=== PATIENT | female | born 1945 | race Caucasian/White ===

== ENCOUNTER → 2016-10-08 | Outpatient (CLI) | payer OTHER ==
[~2016-10-08] MED LIST: ACET-1256 PO; ALBUAER2 INH; ANT25 PO; ATEN-174 PO; ATOR-22 PO; BIOT1TAB5 PO; CAMPLOT10 TOP; CEPH500C PO; CHOL1CAP57 PO; CLC100 PO; DICY20TA10 PO; DOXY100C76 PO; HYDR-3124 PO; HYDR25TA5 PO; IPRASOL4 INH; LSX20 PO; MRLP17 PO; NRN100 PO; ONDA4TAB10 SL; OXYC-57 PO; PLMINS NEB; POTA-331 PO; POTA10TA32 PO; PRED10TA PO; PRLSR20 PO; TRMO2580 TOP; TUMS PO; VNTHFA/IN INH
--- NOTE | 2016-10-08 12:36 | MAMMOGRAPHY REPORT ---
BILATERAL DIGITAL SCREENING MAMMOGRAM WITH CAD: 10/08/2016 CLINICAL HISTORY: Routine screening. Patient has no complaints. TECHNIQUE: Bilateral CC, MLO and repeat left MLO views were obtained. Current study was also evalu ated with a Computer Aided Detection (CAD) system. COMPARISON: Comparison is made to exams dated: 10/06/2015 mammogram - [facility], 04/17/2013 mammogram, and 04/16/2012 mammogram - [facility]. BREAST COMPOSITION: There are scattered areas of fibroglandular density in both breasts. FINDINGS: There are benign calcifications and stable benign-appearing punctate microcalcifications b ilaterally. A stable coiled metallic biopsy marker in the 11:30 to 12:00 anterior right breast. No new suspicious mass, architectural distortion or cluster of microcalcifications is seen. IMPRESSION: ACR BI-RADS CATEGORY 1: NEGATIVE There is no mammographic evidence of malignancy. A 1 year screening mammogram is recommended. The p atient will receive written notification of the results. Approximately 10% of breast cancers are not detected with mammography. A negative mammographic repor t should not delay biopsy if a clinically suggestive mass is present. Swati Manzo M.D. ay/:10/08/2016 10:56:52 Fuel Handler: Krystal ROCHE(Hernandez)(Mara)([place]), [facility] letter sent: Normal 1/2 BI-RADS Code: ACR BI-RADS Category 1: Negative
== END | disposition home or self-care (01) ==
LOC: C.MAMM 10:20
PROVIDERS: ATTEND Internal Medicine
DX: Z12.31 Encounter for screening mammogram for malignant neoplasm of breast (principal)

== ENCOUNTER → 2016-12-07 | Outpatient (CLI) | payer OTHER ==
[~2016-12-07] MED LIST changes: -ANT25 PO; -ONDA4TAB10 SL; -PLMINS NEB
--- NOTE | 2016-12-07 11:31 | DIAGNOSTIC IMAGING REPORT ---
SMALL BOWEL FOLLOW-THROUGH CLINICAL HISTORY: Nausea. Constipation. Bloating. COMPARISON STUDY: Abdominal CT dated 02/10/2015. TECHNIQUE: An abdominal hand roller engraver radiograph was performed. The patient consumed several of thin barium and a small follow-through was performed. Overhead radiographs and spot compression images were obtained. FINDINGS: The abdominal hand roller engraver radiograph shows a nonobstructed abdominal bowel gas pattern. Cholecystectomy clips are noted. There is mild to moderate colonic fecal retention. Numerous phleboliths are seen in the pelvis. The skeletal structures are osteopenic. Mild lumbosacral spondylosis is observed. The stomach and duodenum appear normal in configuration. On the small bowel follow-through, there is normal transit time with contrast identified in the colon at 20 minutes. The small bowel mucosal pattern is normal. There is no evidence of stricture or mass. The distal/terminal ileum are normal in appearance on the spot compression views. Fluoroscopy time: 0.6 minutes. Fluoroscopic images: 7 IMPRESSION: Normal small bowel follow-through. Electronically signed by: Jose D Cruz M.D. 12/07/2016 11:30 AM Dictated Date/Time: 12/07/2016 11:27 AM
== END | disposition home or self-care (01) ==
LOC: C.RAD 08:41
PROVIDERS: ATTEND Nurse Practitioner Family
DX: R14.0 Abdominal distension (gaseous) (principal)

== ENCOUNTER 2017-02-09 08:06 | Observation (INO) | payer OTHER ==
[~2017-02-09] VITALS: Ht 157.5 cm; Wt 108.0 kg
[~2017-02-09 08:06] MED LIST changes: -ACET-1256 PO; -ATEN-174 PO; -ATOR-22 PO; -BIOT1TAB5 PO; -CAMPLOT10 TOP; -CEPH500C PO; -CHOL1CAP57 PO; -CLC100 PO; -DICY20TA10 PO; -DOXY100C76 PO; -HYDR-3124 PO; -HYDR25TA5 PO; -IPRASOL4 INH; -LSX20 PO; -MRLP17 PO; -NRN100 PO; -OXYC-57 PO; -POTA10TA32 PO; -PRED10TA PO; -TRMO2580 TOP; -TUMS PO; -VNTHFA/IN INH
--- NOTE | 2017-02-09 08:43 | EMERGENCY ROOM VISIT NOTE ---
History Report prepared by Latrice: Hesham Cantrell Under the Supervision of: Dr. Chula Desai M.D. First contact with patient: 08:11 Chief Complaint: LEG PAIN,LEG INJURY Stated Complaint: LEG PAIN History of Present Illness The patient is a 71 year old female who presents to the Emergency Room via EMS with complaints of right leg pain that began 2 months ago. She rates her current pain a 7/10 in severity. This morning, she was stepping up to her bed when she felt something "tear" behind her knee. She was given 2 doses of Morphine 4 mg IV en route. 1 month ago, she reports that she twisted her knee as well. She saw her PCP recently, and they told her that she had a varicose vein in her leg that was causing her pain. Today, her pain has worsened to where the patient cannot walk or bear any weight. She states that her pain is behind the knee, down her calf, and into her groin. Her right leg has been swelling as well. She has a past medical history of arthritis in her lower back , COPD, hypertension, and hyperlipidemia. She denies any history of diabetes. Source of History: patient Onset: 2 months ago Position: leg (right), knee (right) Symptom Intensity: 7/10 Quality: ache Timing: constant Modifying Factors (Worsening): exertion, movement Note: Her pain is radiating to her groin area as well. Review of Systems See HPI for pertinent positives & negatives. A total of 10 systems reviewed and were otherwise negative. Past Medical & Surgical Medical Problems: (1) Acute pain of right lower extremity (2) CKD (chronic kidney disease) stage 3, GFR 30-59 ml/min (3) COPD, severe (4) Dyslipidemia (5) GERD (gastroesophageal reflux disease) (6) Hypertension (7) IBS (irritable bowel syndrome) Surgical Problems: (1) H/O esophagogastroduodenoscopy (2) History of bilateral breast reduction surgery (3) History of tonsillectomy and adenoidectomy (4) History of total hysterectomy (5) History of ureter stent Family History Diabetes mellitus FH: lung disease FHx: heart disease Hypertension Social History Smoking Status: Former Smoker Alcohol Use: none Marital Status: Housing Status: lives with family Occupation Status: retired Current/Historical Medications Scheduled Albuterol Hfa (Ventolin Hfa), 2-4 PUFFS INH Q4 Atenolol (Tenormin), 50 MG PO DAILY Atorvastatin (Lipitor), 20 MG PO DAILY Biotin (Biotin), 1,000 MCG PO TID Cholecalciferol (Vitamin D3), 1 CAP PO DAILY Hydrochlorothiazide (Hydrochlorothiazide), 1 TAB PO DAILY Potassium Chloride Microencaps (Potassium Chloride Er), 10 MEQ PO DAILY Scheduled PRN Acetaminophen (Tylenol), 500 MG PO UD PRN for h Dicyclomine Hcl (Dicyclomine Hcl), 20 MG PO BID PRN for abd pain Ipratropium-Albuterol (Duoneb), 1 VIAL INH QID PRN for SOB/Wheezing Allergies Coded Allergies: Adhesives (Verified Allergy, Intermediate, RASH, 02/09/17) Ibuprofen (Verified Allergy, Intermediate, RASH, 02/09/17) Latex (Verified Allergy, Intermediate, RASH, 02/09/17) Naproxen (Verified Allergy, Intermediate, SWELLING, RASH, HIVES, 02/09/17) Iodinated Diagnostic Agents (Verified Allergy, Unknown, ., 02/09/17) Physical Exam Vital Signs Date Time Temp Pulse Resp B/P Pulse Ox O2 Delivery O2 Flow Rate FiO2 02/09/17 14:15 81 19 97 02/09/17 14:00 80 17 133/90 94 02/09/17 13:45 85 22 95 02/09/17 13:43 146/83 02/09/17 13:37 178/98 02/09/17 13:22 87 02/09/17 13:15 87 95 02/09/17 13:00 85 125/69 93 02/09/17 12:45 81 94 02/09/17 12:30 81 93 02/09/17 12:20 141/91 02/09/17 12:19 84 18 141/91 93 Room Air 2.0 02/09/17 11:01 /134 02/09/17 11:00 60 91 02/09/17 09:34 58 20 138/93 96 Nasal Cannula 2.0 02/09/17 08:27 96 Nasal Cannula 2.0 02/09/17 08:26 90 Room Air 02/09/17 08:19 37.1 73 20 148/87 90 Room Air 02/09/17 08:18 64 Physical Exam Vital signs reviewed. General: Well-appearing, obese, elderly, deconditioned, in no significant distress. HEENT: No scleral icterus, PERRLA, neck supple. Atraumatic. Cardiovascular: Regular rate and rhythm, no extra sounds. Pulmonary: Clear to auscultation bilaterally, normal work of breathing. Abdomen: Soft, nontender, nondistended, positive bowel sounds. Musculoskeletal: Pain to palpation to the posterior right knee, pain with extension and flexion, pain with straight leg raise, no significant abnormality seen on exam, no peripheral edema. Neurologic: Patient awake alert and oriented x 3, full strength in all 4 extremities. Cranial nerves 2 through 12 grossly intact. Skin: Warm, dry, no rash Medical Decision & Procedures ER Provider Diagnostic Interpretation: Radiology results as stated below per my review and radiologist interpretation: LUMBAR SPINE 5 VIEWS HISTORY: Pain. Neuropathy. RLE PAIN COMPARISON: None. FINDINGS: There is no fracture. No subluxation. Moderate degenerative disc changes throughout. No evidence for compression deformity. IMPRESSION: Moderate degenerative change. No acute process. Electronically signed by: Corey Landaverde M.D. 02/09/2017 9:21 AM Dictated Date/Time: 02/09/2017 9:20 AM Venous Doppler right leg VENOUS DOPP LOWER EXT UNILAT CLINICAL HISTORY: RLE PAIN, dv pain. Edema. TECHNIQUE: Venous Doppler COMPARISON STUDY: None FINDINGS: Normal study IMPRESSION: Normal study Electronically signed by: Corey Landaverde M.D. 02/09/2017 9:18 AM Dictated Date/Time: 02/09/2017 9:18 AM LUMBAR SPINE MRI HISTORY: Pain. Radiculopathy. R leg radiculopathy unable to bear weight TECHNIQUE: Multiplanar multisequence MRI of the lumbar spine was performed without the use of contrast. COMPARISON: None. FINDINGS: For the purpose of the report the L5-S1 disc space will be located on axial image 27 of 30. Mild degenerative disc change. Normal stature of the vertebral bodies. L1-L2: Minimal broad-based disc bulge. No significant impact with thecal sac. L2-L3: Minimal broad-based disc bulge. Minimal impact with thecal sac. L3-L4: Mild multifactorial narrowing of the spinal canal. Broad-based bulging disc L3-L4. Neural foramina patent bilaterally. L4-L5: Mild multifactorial narrowing of the spinal canal. Neural foramina patent bilaterally. L5-S1: No significant central canal or neural foraminal narrowing. IMPRESSION: 1. Moderate degenerative disc change throughout the entire lumbar region. 2. Mild multifactorial narrowing of the spinal canal at L3-L4 and L4-L5. 3. No major compromise of the spinal canal or neural foramina Electronically signed by: Corey Landaevrde M.D. 02/09/2017 12:25 PM Dictated Date/Time: 02/09/2017 12:23 PM Laboratory Results Test 02/09/17 08:18 02/09/17 08:32 Immature Granulocyte % (Auto) 0.4 % White Blood Count 7.42 K/uL (4.8-10.8) Red Blood Count 5.18 M/uL (4.2-5.4) Hemoglobin 15.8 g/dL (12.0-16.0) Hematocrit 50.3 % (37-47) Mean Corpuscular Volume 97.1 fL (80-100) Mean Corpuscular Hemoglobin 30.5 pg (25-34) Mean Corpuscular Hemoglobin Concent 31.4 g/dl (32-36) Platelet Count 205 K/uL (130-400) Mean Platelet Volume 10.0 fL (7.4-10.4) Neutrophils (%) (Auto) 62.3 % Lymphocytes (%) (Auto) 23.3 % Monocytes (%) (Auto) 12.0 % Eosinophils (%) (Auto) 1.3 % Basophils (%) (Auto) 0.7 % Neutrophils # (Auto) 4.62 K/uL (1.4-6.5) Lymphocytes # (Auto) 1.73 K/uL (1.2-3.4) Monocytes # (Auto) 0.89 K/uL (0.11-0.59) Eosinophils # (Auto) 0.10 K/uL (0-0.5) Basophils # (Auto) 0.05 K/uL (0-0.2) Immature Granulocyte # (Auto) 0.03 K/uL (0.00-0.02) Prothrombin Time 10.7 SECONDS (9.0-12.0) Prothromb Time International Ratio 1.0 (0.9-1.1) Activated Partial Thromboplast Time 27.6 SECONDS (21.0-31.0) Partial Thromboplastin Ratio 1.1 Total Bilirubin 0.7 mg/dl (0.2-1) Direct Bilirubin 0.1 mg/dl (0-0.2) Aspartate Amino Transf (AST/SGOT) 15 U/L (15-37) Alanine Aminotransferase (ALT/SGPT) 23 U/L (12-78) Alkaline Phosphatase 85 U/L (45-117) Total Protein 7.3 gm/dl (6.4-8.2) Albumin 3.8 gm/dl (3.4-5.0) Bedside Troponin I 0.000 ng/ml (0-0.045) JB-Fti-L-Type Natriuretic Peptide 119 pg/ml (0-900) Laboratory results per my review. Medications Administered Medications (Trade) Dose Ordered Sig/Carlos Route Start Time Stop Time Status Last Admin Dose Admin Lorazepam 2 mg 2 mg NOW STAT SL 02/09/17 10:45 02/09/17 10:47 DC 02/09/17 11:19 2 MG Promethazine HCl/ Sodium Chloride (Phenergan Inj/ Nss 50ml) 50.5 ml @ 204 mls/hr NOW STAT IV 02/09/17 12:15 02/09/17 12:29 DC 02/09/17 12:15 204 MLS/HR ECG Indication: other (leg pain) Rate (beats per minute): 61 Rhythm: normal sinus Findings: no acute ischemic change, no ectopy ED Course 0811: Past medical records reviewed. The patient was evaluated in room A10. A complete history and physical examination was performed. 0845: The patient made the decision to try an MRI procedure if needed as long as her head is uncovered. 0929: I was informed the patient would like medication for her nausea symptoms. 1045: Ativan Tab 2 mg SL 1215: Ordered Promethazine HCl 50.5 ml @ 204 mls/hr IV 1350: Upon reevaluation, the patient is resting comfortably. I discussed laboratory and radiographic results with her. She verbalized agreement of the treatment plan. I spoke with Dr. Ervin of the [facility]. The patient will be evaluated for further management and care. Medical Decision Differential diagnoses include DVT, sciatica, disc herniation, compression fracture, and muscular strain. This patient was evaluated and appeared to be in no significant distress. IV access was obtained and laboratory work was drawn. Patient was placed on the business services representative. She was medicated in route with IV morphine. Patient was given IV Phenergan for her nausea. Lumbar spine x-rays were obtained and reveal no fracture or dislocation. Ultrasound of the right lower extremity reveals no evidence of DVT. MRI of the lumbar spine was ordered and reveals some degenerative changes. Ambulatory child was performed and the patient requires significant assistance and a walker. Family does not feel comfortable taking the patient home. The patient will be evaluated by the hospitalist service for further management with hopes of further evaluation and potential PTOT therapy. Consults Time Called: 1345 Consulting Physician: Dr. Arcadio Munoz Hospitalist Returned Call: [phone] They will be evaluating the patient for further management. Impression Primary Impression: Right lumbar radiculopathy Scribe Attestation The scribe's documentation has been prepared under my direction and personally reviewed by me in its entirety. I confirm that the note above accurately reflects all work, treatment, procedures, and medical decision making performed by me. Departure Information Dispostion Being Evaluated By Hospitalist Referrals Amarilys Viveros M.D. (PCP) Patient Instructions My [facility]
[2017-02-09 08:45] LABS: BASO % 0.7 %; BASO ABS # 0.05 K/uL (0-0.2); COMPLETE YES; EOS % 1.3 %; HEMATOCRIT 50.3 % (37-47); IG% 0.4 %; LYMPH % 23.3 %; LYMPH ABS # 1.73 K/uL (1.2-3.4); MEAN CELL VOLUME 97.1 fL (80-100); MEAN CORPUSCULAR HEMOGLOBIN 30.5 pg (25-34); MEAN CORPUSCULAR HGB CONC 31.4 g/dl (32-36); NEUT % 62.3 %; PLATELET COUNT 205 K/uL (130-400); RED BLOOD COUNT 5.18 M/uL (4.2-5.4); WHITE BLOOD COUNT 7.42 K/uL (4.8-10.8)
[2017-02-09 08:53] LABS: PARTIAL THROMBOPLASTIN RATIO 1.1; PROTHROMBIN TIME (PATIENT) 10.7 SECONDS (9.0-12.0)
[2017-02-09 09:03] LABS: BUN/CREATININE RATIO 25.6 (10-20); CREATININE 0.91 mg/dl (0.60-1.20); POTASSIUM 3.6 mmol/L (3.5-5.1)
[2017-02-09 09:17] LABS: CALCIUM 9.6 mg/dl (8.5-10.1)
--- NOTE | 2017-02-09 09:20 | DIAGNOSTIC IMAGING REPORT ---
Venous Doppler right leg VENOUS DOPP LOWER EXT UNILAT CLINICAL HISTORY: RLE PAIN, dv pain. Edema. TECHNIQUE: Venous Doppler COMPARISON STUDY: None FINDINGS: Normal study IMPRESSION: Normal study Electronically signed by: Corey Landaverde M.D. 02/09/2017 9:18 AM Dictated Date/Time: 02/09/2017 9:18 AM
--- NOTE | 2017-02-09 09:22 | DIAGNOSTIC IMAGING REPORT ---
LUMBAR SPINE 5 VIEWS HISTORY: Pain. Neuropathy. RLE PAIN COMPARISON: None. FINDINGS: There is no fracture. No subluxation. Moderate degenerative disc changes throughout. No evidence for compression deformity. IMPRESSION: Moderate degenerative change. No acute process. Electronically signed by: Corey Landaverde M.D. 02/09/2017 9:21 AM Dictated Date/Time: 02/09/2017 9:20 AM
[2017-02-09] MEDS ORDERED: LORAZEPAM 1 MG TAB SL STA (10:45)
[2017-02-09] MEDS ORDERED: PROMETHAZINE HCL INJ 12.5 MG in SODIUM CHLORIDE 0.9% 50ML 50 ML IV STA (12:15)
--- NOTE | 2017-02-09 12:27 | DIAGNOSTIC IMAGING REPORT ---
LUMBAR SPINE MRI HISTORY: Pain. Radiculopathy. R leg radiculopathy unable to bear weight TECHNIQUE: Multiplanar multisequence MRI of the lumbar spine was performed without the use of contrast. COMPARISON: None. FINDINGS: For the purpose of the report the L5-S1 disc space will be located on axial image 27 of 30. Mild degenerative disc change. Normal stature of the vertebral bodies. L1-L2: Minimal broad-based disc bulge. No significant impact with thecal sac. L2-L3: Minimal broad-based disc bulge. Minimal impact with thecal sac. L3-L4: Mild multifactorial narrowing of the spinal canal. Broad-based bulging disc L3-L4. Neural foramina patent bilaterally. L4-L5: Mild multifactorial narrowing of the spinal canal. Neural foramina patent bilaterally. L5-S1: No significant central canal or neural foraminal narrowing. IMPRESSION: 1. Moderate degenerative disc change throughout the entire lumbar region. 2. Mild multifactorial narrowing of the spinal canal at L3-L4 and L4-L5. 3. No major compromise of the spinal canal or neural foramina Electronically signed by: Corey Landaverde M.D. 02/09/2017 12:25 PM Dictated Date/Time: 02/09/2017 12:23 PM
[2017-02-09] MEDS ORDERED: BIOT1TAB5 PO (14:25)
[2017-02-09 14:26] VITALS: O2SAT 93; Ht 157.5 cm; Wt 108.0 kg
[2017-02-09] MEDS ORDERED: MoRPHine SULFATE 2 MG/ML CARP IV PRN (14:30)
[2017-02-09] MEDS ORDERED: ONDANSETRON INJ 2 MG/ML 2 ML VIAL IV PRN (14:30)
[2017-02-09] MEDS ORDERED: ALBUT/IPRATROP 3MG/0.5MG NEB 3 ML VIAL INH PRN (14:30)
[2017-02-09] MEDS ORDERED: DICYCLOMINE HCL 20 MG TAB PO PRN (14:30)
--- NOTE | 2017-02-09 15:06 | History and Physical ---
History & Physical Date & Time of Service: February 09, 2017 at 14:33 Chief Complaint: Leg Pain Primary Care Physician: Amarilys Viveros M.D. History of Present Illness Source: patient This is a 71 y/o female with PMHx of CKD stage 3, Severe COPD, HTN, Dyslipidemia and other problems as outlined below who presents to the ED c/o RLE pain x 3 months. Pt reports that 3 months ago she developed pain to her RLE with ambulation. About 1 month ago patient tripped and almost fell however she caught herself with her R leg in a twisting motion. Since that time, the pain in her R knee got much worse and her R knee frequently feels like it "gives out ". She states she has 10/10 pain in her knee that radiates to the ankle and up into groin. The pain is worse with weight bearing and better with rest. She denies back pain, significant swelling or bruising. She has been taking Tylenol to alleviate her pain with no relief. For the past 2 days patient has been using a walker to assist with ambulation and this morning patient was unable to walk at all due to excruciating pain. Pt denies fever/chills, diaphoresis, chest pain, palpitations, SOB, wheezing, abd pain, vomiting, bowel or bladder issues, lightheadedness/dizziness. In the ED, vitals are stable. Labs reviewed are WNL. Lumbar Spine MRI + mod degenerative changes. LE US neg for DVT. Pt is stable and will be admitted for further evaluation and treatment. Past Medical/Surgical History Medical Problems: (1) CKD (chronic kidney disease) stage 3, GFR 30-59 ml/min Status: Chronic (2) COPD, severe Status: Chronic (3) Dyslipidemia Status: Chronic (4) GERD (gastroesophageal reflux disease) Status: Chronic (5) Hypertension Status: Chronic (6) IBS (irritable bowel syndrome) Status: Chronic Surgical Problems: (1) H/O esophagogastroduodenoscopy Permanent Comment: repair zenkers diverticulum Status: Resolved (2) History of bilateral breast reduction surgery Status: Resolved (3) History of tonsillectomy and adenoidectomy Status: Resolved (4) History of total hysterectomy Status: Resolved (5) History of ureter stent Status: Resolved Family History Diabetes mellitus FH: lung disease FHx: heart disease Hypertension Social History Smoking Status: Former Smoker (70 pack year history (2 ppd x 35years); quit 1995) Alcohol Use: none Drug Use: none Marital Status: Housing status: lives with significant other Occupational Status: retired Immunizations History of Tetanus Vaccine?: No History of Pneumococcal: No History of Hepatitis B Vaccine: No Multi-Drug Resistant Organisms History of MDRO: No Allergies Coded Allergies: Adhesives (Verified Allergy, Intermediate, RASH, 02/09/17) Ibuprofen (Verified Allergy, Intermediate, RASH, 02/09/17) Latex (Verified Allergy, Intermediate, RASH, 02/09/17) Naproxen (Verified Allergy, Intermediate, SWELLING, RASH, HIVES, 02/09/17) Iodinated Diagnostic Agents (Verified Allergy, Unknown, ., 02/09/17) Home Medications Scheduled Albuterol Hfa (Ventolin Hfa), 2-4 PUFFS INH Q4 Atenolol (Tenormin), 50 MG PO DAILY Atorvastatin (Lipitor), 20 MG PO DAILY Biotin (Biotin), 1,000 MCG PO TID Cholecalciferol (Vitamin D3), 1 CAP PO DAILY Hydrochlorothiazide (Hydrochlorothiazide), 1 TAB PO DAILY Potassium Chloride Microencaps (Potassium Chloride Er), 10 MEQ PO DAILY Scheduled PRN Acetaminophen (Tylenol), 500 MG PO UD PRN for h Dicyclomine Hcl (Dicyclomine Hcl), 20 MG PO BID PRN for abd pain Ipratropium-Albuterol (Duoneb), 1 VIAL INH QID PRN for SOB/Wheezing Review of Systems Constitutional: No chills, No fatigue, No fever, No sweats, No weakness Eyes: No worsening of vision Respiratory: No cough, No shortness of breath Cardiovascular: No chest pain, No edema, No palpitations Abdomen: + nausea, No constipation, No diarrhea, No pain, No vomiting Musculoskeletal: + joint pain (R knee pain radiating to ankle and into groin), No calf pain Genitourinary - Female: No dysuria Neurologic: No weakness Psychiatric: No depression symptoms Endocrine: No fatigue Hematologic / Lymphatic: No abnormal bleeding/bruising Integumentary: No new/changing skin lesions Physical Exam Vital Signs Date Time Temp Pulse Resp B/P Pulse Ox O2 Delivery O2 Flow Rate FiO2 02/09/17 13:22 87 02/09/17 12:19 84 18 141/91 93 Room Air 2.0 02/09/17 09:34 58 20 138/93 96 Nasal Cannula 2.0 02/09/17 08:27 96 Nasal Cannula 2.0 02/09/17 08:26 90 Room Air 02/09/17 08:19 37.1 73 20 148/87 90 Room Air 02/09/17 08:18 64 General Appearance: WD/WN, no apparent distress, + obese, + pertinent finding ( Pt is laying in bed with and daughter at bedside) Head: normocephalic, atraumatic Eyes: normal inspection ENT: hearing grossly normal Neck: supple Respiratory/Chest: chest non-tender, lungs clear, normal breath sounds, no respiratory distress Cardiovascular: regular rate, rhythm, no murmur Abdomen/GI: normal bowel sounds, non tender, soft Back: normal inspection, + pertinent finding (no spinal or paraspinal tenderness) Extremities/Musculoskelatal: normal inspection, no calf tenderness, no pedal edema, + pertinent finding (tenderness to palpation of R knee; no significant swelling or ecchymosis noted) Neurologic/Psych: alert, normal mood/affect, oriented x 3 Skin: normal color, warm/dry Diagnostics Laboratory Results Results Past 24 Hours Test 02/09/17 08:18 02/09/17 08:32 Range/Units White Blood Count 7.42 4.8-10.8 K/uL Red Blood Count 5.18 4.2-5.4 M/uL Hemoglobin 15.8 12.0-16.0 g/dL Hematocrit 50.3 37-47 % Mean Corpuscular Volume 97.1 80-100 fL Mean Corpuscular Hemoglobin 30.5 25-34 pg Mean Corpuscular Hemoglobin Concent 31.4 32-36 g/dl Platelet Count 205 130-400 K/uL Mean Platelet Volume 10.0 7.4-10.4 fL Neutrophils (%) (Auto) 62.3 % Lymphocytes (%) (Auto) 23.3 % Monocytes (%) (Auto) 12.0 % Eosinophils (%) (Auto) 1.3 % Basophils (%) (Auto) 0.7 % Neutrophils # (Auto) 4.62 1.4-6.5 K/uL Lymphocytes # (Auto) 1.73 1.2-3.4 K/uL Monocytes # (Auto) 0.89 0.11-0.59 K/uL Eosinophils # (Auto) 0.10 0-0.5 K/uL Basophils # (Auto) 0.05 0-0.2 K/uL RDW Standard Deviation 49.9 36.4-46.3 fL RDW Coefficient of Variation 14.1 11.5-14.5 % Immature Granulocyte % (Auto) 0.4 % Immature Granulocyte # (Auto) 0.03 0.00-0.02 K/uL Prothrombin Time 10.7 9.0-12.0 SECONDS Prothromb Time International Ratio 1.0 0.9-1.1 Activated Partial Thromboplast Time 27.6 21.0-31.0 SECONDS Partial Thromboplastin Ratio 1.1 Sodium Level 141 136-145 mmol/L Potassium Level 3.6 3.5-5.1 mmol/L Chloride Level 102 98-107 mmol/L Carbon Dioxide Level 30 21-32 mmol/L Anion Gap 9.0 3-11 mmol/L Blood Urea Nitrogen 23 7-18 mg/dl Creatinine 0.91 0.60-1.20 mg/dl Est Creatinine Clear Calc Drug Dose 63.7 ml/min Estimated GFR () 72.5 Estimated GFR (Non- 62.6 BUN/Creatinine Ratio 25.6 10-20 Random Glucose 99 70-99 mg/dl Calcium Level 9.6 8.5-10.1 mg/dl Total Bilirubin 0.7 0.2-1 mg/dl Direct Bilirubin 0.1 0-0.2 mg/dl Aspartate Amino Transf (AST/SGOT) 15 15-37 U/L Alanine Aminotransferase (ALT/SGPT) 23 12-78 U/L Alkaline Phosphatase 85 45-117 U/L Total Protein 7.3 6.4-8.2 gm/dl Albumin 3.8 3.4-5.0 gm/dl Bedside Troponin I 0.000 0-0.045 ng/ml VR-[id number]-[id number]-Type Natriuretic Peptide 119 0-900 pg/ml Diagnostic Radiology LUMBAR SPINE MRI IMPRESSION: 1. Moderate degenerative disc change throughout the entire lumbar region. 2. Mild multifactorial narrowing of the spinal canal at L3-L4 and L4-L5. 3. No major compromise of the spinal canal or neural foramina RLE US IMPRESSION: Normal study LUMBAR SPINE XRAY IMPRESSION: Moderate degenerative change. No acute process. EKG EKG: NSR at 61 bpm with no acute ischemic changes noted; no change when compared to EKG from 06/03/16 Impression Assessment and Plan AMBULATORY DYSFUNCTION 2* R KNEE PAIN Pt presented with R knee pain that radiates to ankle and into groin as well as R knee giving out. No back pain. -admit observation status to med/surg -MRI Lumbar Spine + mod degenerative changes and mild narrowing of canal -RLE US negative for DVT -obtain R knee MRI to evaluate for ligamentous or meniscal injury -morphine PRN pain -PT/OT -pt will likely require inpatient rehab -monitor CKD STAGE 3 -creatinine is around baseline at 0.9 -monitor with daily prp and avoid nephrotoxic agents when able SEVERE COPD -no evidence of acute exacerbation -cont home inhalers -monitor HTN -BP elevated in ED likely secondary to pain -cont HCTZ and atenolol -monitor DYSLIPIDEMIA -cont statin DVT PROPHYLAXIS -subq Lovenox DISPO Observation status until further workup is complete. Pt seen in collaboration with Dr. Ervin. Please see her addendum for further details. Thanks! -Of note: patient will be followed by Dr. Alcantar starting tomorrow AM. VTE Prophylaxis VTE Risk Assessment Done? Y/N: Yes Risk Level: Moderate
--- NOTE | 2017-02-09 15:07 | Progress Note ---
Progress Note Date of Service February 09, 2017. Progress Note Patient was seen and evaluated with ALEYDA Burch. Patient came in with c/o RLE pain x 3 months, progressively worsening over past 2 weeks to the extent that she is not able to ambulate even with her walker. Pain starts from hip to lower leg, at times it feels like it starts in her knee , radiating to ankle and up to groin. No associated neurological symptoms, numbness/tingling, localized weakness, urinary/bladder incontinence. On exam: Gen- AAOX3, no distress HEENT- No icterus Neck- No JVD Heart- s1, s2 normal, no murmurs Lungs- AEBE, no wheezing, crackles, rhonchi Abd- soft, non tender, non distended, BS prsent Ext- Trace edema. No point tenderness, no knee effusion/redness/swellijng Neuro- AAOX3, Power 5/5 all extremities, Sensation- normal A/P: RLE Pain Likely sciatica, difficulty ambulating secondary to this. Has had this for 3 months, progressively worsening x 2 weeks. Almost had a fall 1 month ago. Unable to tolerate some pain medications= tramadol, so had been taking only tylenol -No neurological signs/symptoms -Work up- US LE- negative for DVT, Lumbar MRI- Moderate degenerative changes throughout, Mild multi level narrowing- L3-4, L4-L5 -PT/OT -Will need placement- [facility]. AMBULATORY DYSFUNCTION Secondary to above. Difficulty walking with her walker x 2 weeks -PT/OT -[facility] in AM Discussed with , daughter by bedside.
[2017-02-09] MEDS ORDERED: IV FLUIDS COMPLETED PRN (15:15)
[2017-02-09 16:00] VITALS: O2SAT 95
[2017-02-09] MEDS: ALBUTEROL HFA 8 GM INHALER INH SCH ×3 (16:00→23:43)
[2017-02-09] MEDS: ACETAMINOPHEN 325 MG TAB PO PRN ×2 (16:24→20:51)
[2017-02-09 16:30] VITALS: BP 115/77; PULSE 80; TEMP 36.3; O2SAT 95
[2017-02-09 18:25] LABS: URINE APPEARANCE CLEAR (CLEAR); URINE BILIRUBIN NEG (NEG); URINE COLOR YELLOW; URINE EPITHELIAL CELL AUTO >30 /lpf (0-5); URINE NITRITE POS (NEG); URINE SPECIFIC GRAVITY 1.024 (1.000-1.030); UROBILINOGEN NEG (NEG); ZZUR CULT IF INDIC CLEAN CATCH YES
[2017-02-09 18:29] LABS: MANUAL MICROSCOPIC REQUIRED? NO; REVIEW REQ? NO
[2017-02-09] MEDS: OXYCODONE/ACETAMINOPHEN 5-325 TAB PO PRN ×2 (18:56→23:45)
[2017-02-09] MEDS: ENOXAPARIN 40 MG/0.4 ML SYR SQ SCH (18:58)
[2017-02-09] MEDS ORDERED: NON-FORMULARY MEDICATION (Biotin 1,000 MCG) PO SCH (21:00)
[2017-02-09 22:55] VITALS: BP 118/69; PULSE 89; TEMP 36.6; O2SAT 94
[2017-02-10] MEDS: ALBUTEROL HFA 8 GM INHALER INH SCH ×7 (03:41→23:36)
[2017-02-10 05:55] LABS: HEMATOCRIT 45.2 % (37-47); MEAN CELL VOLUME 100.2 fL (80-100); MEAN CORPUSCULAR HEMOGLOBIN 30.6 pg (25-34); MEAN CORPUSCULAR HGB CONC 30.5 g/dl (32-36); MEAN PLATELET VOLUME 9.4 fL (7.4-10.4); PLATELET COUNT 160 K/uL (130-400); RED BLOOD COUNT 4.51 M/uL (4.2-5.4); WHITE BLOOD COUNT 7.56 K/uL (4.8-10.8)
[2017-02-10 06:28] LABS: POTASSIUM 3.8 mmol/L (3.5-5.1)
[2017-02-10 07:00] VITALS: BP 119/78; PULSE 67; TEMP 36.4; O2SAT 95
[2017-02-10 07:15] VITALS: O2SAT 95
[2017-02-10] MEDS: OXYCODONE/ACETAMINOPHEN 5-325 TAB PO PRN ×3 (07:36→18:43)
[2017-02-10] MEDS: ACETAMINOPHEN 325 MG TAB PO PRN (08:42)
[2017-02-10] MEDS: POTASSIUM CHLORIDE 10 MEQ TABCR PO SCH (08:42)
[2017-02-10] MEDS: HYDROCHLOROTHIAZIDE 25 MG TAB PO SCH (08:43)
[2017-02-10] MEDS: CHOLECALCIFEROL 1000 INTER.UNIT TAB PO SCH (08:44)
[2017-02-10 08:45] VITALS: BP 107/67; PULSE 89
[2017-02-10] MEDS: ATORVASTATIN 20 MG TAB PO SCH (08:45)
[2017-02-10] MEDS ORDERED: NURSING VERBAL MED ORDER ONE (10:30)
[2017-02-10] MEDS ORDERED: LORAZEPAM INJ 0.5 MG in SYRINGE 0.75 ML IV SCH (10:30)
--- NOTE | 2017-02-10 14:20 | DIAGNOSTIC IMAGING REPORT ---
MRI THE RIGHT KNEE NO CONTRAST CLINICAL HISTORY: Right knee pain and instability. COMPARISON STUDY: No previous studies for comparison. FINDINGS: The examination is compromised due to patient motion artifact. Imaging was performed the sagittal coronal and axial planes. The patellar and quadriceps tendons appear intact. The anterior and posterior cruciate ligaments appear intact. The medial and lateral collateral ligaments appear intact. There are no areas of marrow edema to indicate occult fracture or bone bruise The patellar retinacular structures appear intact. There is a small popliteal cyst. There are degenerative signal changes present within the menisci. No meniscal tears are visualized. An equivocal vertical tear near the medial meniscal root, likely represents partial volume averaging artifact IMPRESSION: No evidence of internal derangement. Examination limited due to motion artifact. Electronically signed by: Michael Campa M.D. 02/10/2017 2:19 PM Dictated Date/Time: 02/10/2017 2:15 PM
[2017-02-10 14:52] VITALS: BP 119/76; PULSE 64; TEMP 36.6; O2SAT 85
[2017-02-10 16:27] VITALS: O2SAT 93
[2017-02-10] MEDS: ENOXAPARIN 40 MG/0.4 ML SYR SQ SCH (18:43)
--- NOTE | 2017-02-10 19:32 | Progress Note ---
Internal Med Progress Note Date of Service: February 10, 2017. Provider Documentation: SUBJECTIVE: having severe pain in back with radiation to rt knee in tears due to pain mentions she went to bedside commode walking 2-3 steps " took her breath away " due to pain OBJECTIVE: Vital Signs-as noted below Exam: General-in distress due to pain Lungs-CTA Heart-regular S1/S2 Abdomen-soft, non tender Extremities-+ trace bilat lower ext edema, point tenderness on lower lumber area Neuro-AAO x3, no focal deficit Lab data as noted below. ASSESSMENT & PLAN: BACK PAIN WITH RADIATION TO RT KNEE Likely sciatica, difficulty ambulating secondary to this. ongoing for 3 months, progressively worsening x 2 weeks. Almost had a fall 1 month ago. -No neurological signs/symptoms -Work up- US LE- negative for DVT, Lumbar MRI- Moderate degenerative changes throughout, Mild multi level narrowing- L3-4, L4-L5 Rt knee MRI : no acute change spine Ortho evaluation requested Pain management consulted for intractable pain /Sciatica AMBULATORY DYSFUNCTION Secondary to above. Difficulty walking with her walker x 2 weeks -PT/OT -need pain control prior to transfer to Rehab DVT PROPHYLAXIS moderate risk poor mobility due to back pain will D/C Sub q Lovenox -possible intra articular steroid injection scd and teds DISPOSITION will need rehab as per ED referral been made to [facility] , awaiting insurance auth pain needs to be better controlled prior to transfer to Rehab in order for pt to participate in PT/OT Vital Signs: Date Time Temp Pulse Resp B/P Pulse Ox O2 Delivery O2 Flow Rate FiO2 02/10/17 16:27 93 Nasal Cannula 1.5 02/10/17 14:52 36.6 64 16 119/76 85 Room Air 02/10/17 08:45 89 107/67 02/10/17 07:15 95 Nasal Cannula 2.0 02/10/17 07:00 36.4 67 17 119/78 95 Nasal Cannula 1.0 02/09/17 23:45 Nasal Cannula 2.0 02/09/17 22:55 36.6 89 18 118/69 94 Nasal Cannula 2.0 Lab Results: Results Past 24 Hours Test 02/10/17 05:40 Range/Units White Blood Count 7.56 4.8-10.8 K/uL Red Blood Count 4.51 4.2-5.4 M/uL Hemoglobin 13.8 12.0-16.0 g/dL Hematocrit 45.2 37-47 % Mean Corpuscular Volume 100.2 80-100 fL Mean Corpuscular Hemoglobin 30.6 25-34 pg Mean Corpuscular Hemoglobin Concent 30.5 32-36 g/dl RDW Standard Deviation 52.5 36.4-46.3 fL RDW Coefficient of Variation 14.3 11.5-14.5 % Platelet Count 160 130-400 K/uL Mean Platelet Volume 9.4 7.4-10.4 fL Sodium Level 144 136-145 mmol/L Potassium Level 3.8 3.5-5.1 mmol/L Chloride Level 104 98-107 mmol/L Carbon Dioxide Level 36 21-32 mmol/L Anion Gap 4.0 3-11 mmol/L Blood Urea Nitrogen 27 7-18 mg/dl Creatinine 1.00 0.60-1.20 mg/dl Est Creatinine Clear Calc Drug Dose 58.0 ml/min Estimated GFR () 64.7 Estimated GFR (Non- 55.8 BUN/Creatinine Ratio 27.0 10-20 Random Glucose 90 70-99 mg/dl Calcium Level 9.0 8.5-10.1 mg/dl
[2017-02-10] MEDS ORDERED: HYDROmorphone INJ 0.5 MG/0.5 ML SYR IV STA (19:42)
[2017-02-10] MEDS ORDERED: HYDROmorphone INJ 0.5 MG/0.5 ML SYR IV PRN (19:45)
[2017-02-10] MEDS ORDERED: HYDROmorphone INJ 1 MG/ML SYR IV PRN (20:00)
[2017-02-10] MEDS: DOCUSATE SODIUM 100 MG CAP PO SCH (21:32)
[2017-02-10 22:55] VITALS: BP 110/73; PULSE 66; TEMP 36.4; O2SAT 92
[2017-02-10] MEDS ORDERED: CALCIUM CARBONATE 500 MG CHEWABLE PO ONE (23:48)
[2017-02-11] MEDS ORDERED: CALCIUM CARBONATE 500 MG CHEWABLE PO PRN
[2017-02-11] MEDS: ALBUTEROL HFA 8 GM INHALER INH SCH ×6 (03:58→23:44)
[2017-02-11] MEDS: OXYCODONE/ACETAMINOPHEN 5-325 TAB PO PRN ×3 (04:00→23:54)
[2017-02-11 07:06] VITALS: BP 133/76; PULSE 59; TEMP 36.5; O2SAT 95
[2017-02-11] MEDS: ATORVASTATIN 20 MG TAB PO SCH (08:51)
[2017-02-11] MEDS: DOCUSATE SODIUM 100 MG CAP PO SCH ×2 (08:51→20:55)
[2017-02-11] MEDS: HYDROCHLOROTHIAZIDE 25 MG TAB PO SCH (08:52)
[2017-02-11] MEDS: CHOLECALCIFEROL 1000 INTER.UNIT TAB PO SCH (08:52)
[2017-02-11] MEDS: POTASSIUM CHLORIDE 10 MEQ TABCR PO SCH (08:52)
[2017-02-11] MEDS ORDERED: POLYETHYLENE (MIRALAX) 17 GM PACK PO SCH (09:00)
--- NOTE | 2017-02-11 11:03 | Pain Management Consultation ---
Pain Management Consultation Date of Consultation February 11, 2017. Reason for Consultation spinal stenosis History 71yoF with 1mo h/o falls and RLE pain posteriolateral thigh to level of ankle. Pain is sharp and shooting worse with activity better with rest. Has walked around pt room today with use of walker with limited difficulty. She notes perceived weakness, but no true weakness or foot drop. No B/B incontinence. Pain ranges from 3-7/10 depending on activity. Started PT. No prior injections. Has been using percocet with benefit. No adjuvant pain meds to date. Past Medical/Surgical History (1) Acute pain of right lower extremity (2) Right lumbar radiculopathy (3) Hypertension (4) COPD, severe (5) IBS (irritable bowel syndrome) (6) Dyslipidemia (7) GERD (gastroesophageal reflux disease) (8) CKD (chronic kidney disease) stage 3, GFR 30-59 ml/min (9) History of ureter stent (10) History of total hysterectomy (11) History of tonsillectomy and adenoidectomy (12) History of bilateral breast reduction surgery (13) H/O esophagogastroduodenoscopy Family History Diabetes mellitus FH: lung disease FHx: heart disease Hypertension Family Hx Review: history personally reviewed by me Social / Work History Alcohol Use: none Drug Use: none Marital Status: Housing Status: lives with significant other Occupation: retired Allergies Coded Allergies: Adhesives (Verified Allergy, Intermediate, RASH, 02/09/17) Ibuprofen (Verified Allergy, Intermediate, RASH, 02/09/17) Latex (Verified Allergy, Intermediate, RASH, 02/09/17) Naproxen (Verified Allergy, Intermediate, SWELLING, RASH, HIVES, 02/09/17) Iodinated Diagnostic Agents (Verified Allergy, Unknown, ., 02/09/17) Medications Current Inpatient Medications Medications (Trade) Dose Ordered Sig/Carlos Route Start Time Stop Time Status Last Admin Dose Admin Acetaminophen (Tylenol Tab) 650 mg Q4H PRN PO 02/09/17 14:30 03/11/17 14:29 02/10/17 08:42 650 MG Ondansetron HCl (Zofran Inj) 4 mg Q6H PRN IV 02/09/17 14:30 03/11/17 14:29 Albuterol (Ventolin Hfa Inhaler) 2 puffs Q4 INH 02/09/17 16:00 03/11/17 15:59 02/11/17 08:50 2 PUFFS Atenolol (Tenormin Tab) 50 mg DAILY PO 02/10/17 09:00 03/12/17 08:59 02/11/17 08:51 50 MG Atorvastatin Calcium (Lipitor Tab) 20 mg DAILY PO 02/10/17 09:00 03/12/17 08:59 02/11/17 08:51 20 MG Dicyclomine HCl (Bentyl Tab) 20 mg BID PRN PO 02/09/17 14:30 03/11/17 14:29 Hydrochlorothiazide (Hydrochlorothiazide Tab) 25 mg DAILY PO 02/10/17 09:00 03/12/17 08:59 02/11/17 08:52 25 MG Albuterol/ Ipratropium (Duoneb) 3 ml QID PRN INH 02/09/17 14:30 03/11/17 14:29 Potassium Chloride (Klor-Con M10) 10 meq DAILY PO 02/10/17 09:00 03/12/17 08:59 02/11/17 08:52 10 MEQ Cholecalciferol (Vitamin D Tab) 1,000 inter.unit DAILY PO 02/10/17 09:00 03/12/17 08:59 02/11/17 08:52 1,000 INTER.UNIT Miscellaneous (Iv Fluids Completed) 1 ea PRN PRN N/A 02/09/17 15:15 02/09/18 15:14 Oxycodone/ Acetaminophen (Percocet 5-325mg Tab) 1 tab Q4H PRN PO 02/09/17 18:30 02/23/17 18:29 02/11/17 04:00 1 TAB Polyethylene (Miralax Powder Packet) 17 gm DAILY PO 02/11/17 09:00 03/13/17 08:59 02/11/17 08:51 17 GM Docusate Sodium (coLACE CAP) 100 mg BID PO 02/10/17 21:00 03/12/17 20:59 02/11/17 08:51 100 MG Hydromorphone HCl (Dilaudid Inj) 0.5 mg Q4 PRN IV 02/10/17 20:00 02/24/17 19:59 02/10/17 20:03 0.5 MG Diphenhydramine HCl (Benadryl Cap) 25 mg Q6H PRN PO 02/11/17 00:00 03/13/17 00:00 Calcium Carbonate (Tums Chew Tab) 500 mg QID PRN PO 02/11/17 00:00 03/13/17 00:00 Gabapentin (Neurontin Cap) 100 mg BID PO 02/11/17 21:00 03/13/17 20:59 Review of Systems 10 pt ROS otherwise negative from HPI Physical Exam Height & Weight: Height 5 feet, 2.00 inches. Weight 108.000 (Kilograms) 238 (Pounds) Last Vital Signs Documentation Date Time Temp Pulse Resp B/P Pulse Ox O2 Delivery O2 Flow Rate FiO2 02/11/17 07:06 36.5 59 20 133/76 95 Nasal Cannula 2.0 Exam: AAOx3 in NAD sitting in bed PERRL Neck supple CV RRR lung No audible wheeze obese, deconditioned gait not observed, walker present in room 02/08 strength BL LE equal throughout. neg SLR Left, positive with achilles stretch on right. intact sensation BL LE decreased flex/ex Lspine, NT over midline. Neg facet provocation no ankle clonus CN grossly intact Laboratory Laboratory Results (Last CBC): 02/10/17 05:40 Imaging MRI: reports reviewed (mild stenosis at L3-4 and L4-5), images reviewed Assessment Lumbar Spinal stenosis at L3-4 and L4-5 (mild) RLE radiculitis w/o myelopathy Deconditioning Recommendations Initiated gabapentin 100mg po bid. orders written, would consider upward titration to 100mg po tid in a few days as pt tolerates dose escalation Will plan for a L4-5 [facility] as an outpt. Given instructions, tentative plan for at [facility] pain clinic. Agree with short term rehab for overall re-conditioning. All questions answered Thank you for consult [employer] Voice Recognition This chart was completed in part utilizing [employer] Voice Recognition Software. Random word insertions, pronoun errors, and incomplete sentences are an occasional consequence of this system due to software limitations and ambient noise. Any questions or concerns about the content, text or information contained within the body of this dictation should be directly addressed to the provider for clarification.
[2017-02-11] MEDS ORDERED: NURSING VERBAL MED ORDER ONE (13:15)
--- NOTE | 2017-02-11 14:57 | ORTHOPEDIC CONSULTATION ---
DATE OF CONSULTATION: 02/11/2017 CHIEF COMPLAINT: Right leg pain. HISTORY OF PRESENT ILLNESS: This is a 71-year-old female, very pleasant that is complaining of right leg pain, worse with weight bearing. She states it has been present for roughly 2 months. She describes as twisting injury in the past but no significant trauma, fall or event. She describes the pain as involving the posterior thigh below the knee into the ankle. Again, it is strongly associated with weightbearing. Left lower extremity is asymptomatic. She denies any bowel or bladder changes, loss of function. She denies any severe early evening back pain. On exam, she is able to stand for me but is very resistant in putting any weight on the right lower extremity, she is stable when does. She gets onset of pain very quickly. Again, it appears to be radicular regarding it and involves the thigh, extending below the knee into the ankle. Sitting does relieve the pain reliably. Examination of the lower extremity reveals no gross tension signs, +5/5 plantar flexion, dorsiflexion, quadriceps. I am unable to locate any specific pain with palpation of the knee. She also has negative log roll. Sensory appears to be intact. MRI of the lumbar spine dated 02/09/2017 performed at [facility] available for review. It does demonstrate evidence of beginning of spondylolisthesis at L3-L4, very subtle at L4-L5. There is some modest right neural foraminal disease at L4-L5. Axillary views do confirm facet hypertrophy, very modest lateral recess disease L3-L4. L4-L5 has again facet hypertrophy and lateral recess disease, significantly on the right. It is subtle, but I believe quite impressive with compression of the L5 nerve root. ASSESSMENT: Right leg pain with the appearance of radiculopathy, possibly related to spinal stenosis. PLAN: At this time, her presentation is somewhat unique. It would be worth an examination with interventional pain management, possible trial of epidural injections. If she responds to this, but it wears off too quickly, we may need to consider decompression at the L4-L5 level. The patient understands and agrees. [facility] HOSPITALNick
[2017-02-11 15:00] VITALS: BP 137/85; PULSE 65; TEMP 36.5; O2SAT 92
[2017-02-11 16:00] VITALS: BP 124/81; PULSE 56; TEMP 36.6; O2SAT 95
--- NOTE | 2017-02-11 19:39 | Progress Note ---
Internal Med Progress Note Date of Service: February 11, 2017. Provider Documentation: SUBJECTIVE: back pain has improved today able to walk to bedside commode still having radiating pain or rt knee and rt groin present at bedside OBJECTIVE: Vital Signs-as noted below Exam: General-in distress due to pain Lungs-CTA Heart-regular S1/S2 Abdomen-soft, non tender Extremities-+ trace bilat lower ext edema, point tenderness on lower lumber area Neuro-AAO x3, no focal deficit Lab data as noted below. ASSESSMENT & PLAN: BACK PAIN WITH RADIATION TO RT KNEE Likely sciatica, difficulty ambulating secondary to this. ongoing for 3 months, progressively worsening x 2 weeks. Almost had a fall 1 month ago. -No neurological signs/symptoms -Work up- US LE- negative for DVT, Lumbar MRI- Moderate degenerative changes throughout, Mild multi level narrowing- L3-4, L4-L5 Rt knee MRI : no acute change spine Ortho evaluation -appreciate input form Dr Zheng recommends spinal steroid epidural injection for pain control it symptom does not improve after epidural procedure may consider L3-L4 spinal decompression surgery in future Pain management consulted for intractable pain /Sciatica appreciate input form Dr Corrina Quiroz scheduled for out patient spinal epidural surgery in [facility] pain clinic in [place] on Saturday02/13/[address], [place] [id number] NPO past midnight on Saturday AMBULATORY DYSFUNCTION Secondary to above. Difficulty walking with her walker x 2 weeks -PT/OT -recommend rehab referral made to [facility] DVT PROPHYLAXIS moderate risk poor mobility due to back pain will D/C Sub q Lovenox -possible intra articular steroid injection scd and teds DISPOSITION will need rehab as per ED referral been made to [facility] , awaiting insurance auth transfer to Rehab -[facility] tomorrow is willing to transport patient pt will need to be transported to [facility] Clinic on Saturday for epidural injection Vital Signs: Date Time Temp Pulse Resp B/P Pulse Ox O2 Delivery O2 Flow Rate FiO2 02/11/17 16:00 36.6 56 18 124/81 95 Nasal Cannula 2.0 02/11/17 15:15 Nasal Cannula 2.0 02/11/17 15:00 36.5 65 18 137/85 92 Nasal Cannula 2.0 02/11/17 08:45 Nasal Cannula 2.0 02/11/17 07:06 36.5 59 20 133/76 95 Nasal Cannula 2.0 02/11/17 04:00 Nasal Cannula 2.0 02/10/17 23:40 Nasal Cannula 2.0 02/10/17 22:55 36.4 66 16 110/73 92 Room Air
[2017-02-11] MEDS ORDERED: TUMS PO (19:41)
[2017-02-11] MEDS ORDERED: MRLP17 PO (19:41)
[2017-02-11] MEDS ORDERED: NRN100 PO (19:41)
[2017-02-11] MEDS ORDERED: CLC100 PO (19:41)
[2017-02-11] MEDS ORDERED: OXYC-57 PO (19:41)
--- NOTE | 2017-02-11 19:44 | Discharge Instructions ---
Discharge Instructions Date of Service February 11, 2017. Admission Reason for Admission: Acute Pain Of Right Lower Extremity Discharge Discharge Diagnosis / Problem: LOW BACK PAIN /RT KNEE PAIN /SCIATICA Discharge Goals Goal(s): Decrease discomfort, Diagnostic testing Activity Recommendations Activity Level: Assistance Required Therapies: Physical Therapy, Occupational Therapy . Additional Information Patient informed of condition: Yes Advance Directives: No DNR: No Level of Care: Acute Rehab Communicable Disease: No Prognosis: Stable [place] Catheter: No Instructions / Follow-Up Instructions / Follow-Up SCHEDULED TO HAVE EPIDURAL STEROID INJECTION AT [facility] BY DR JONATHAN ARRIAGA ON Saturday02/13/17 NEEDS TO BE NOTHING BY MOUTH AFTER MID NIGHT EXCEPT FOR MED ON Saturday02/12/17 Current Hospital Diet Patient's current hospital diet: Regular Diet Discharge Diet Recommended Diet: Regular Diet Pending Studies Studies pending at discharge: no Medical Emergencies . Who to Call and When: Medical Emergencies: If at any time you feel your situation is an emergency, please call 911 immediately. . Non-Emergent Contact Non-Emergency issues call your: Primary Care Provider . . "Provider Documentation" section prepared by Berenice Alcantar. . Core Measure Problem Core Measures: None
[2017-02-11] MEDS: POLYETHYLENE (MIRALAX) 17 GM PACK PO SCH (20:55)
[2017-02-11] MEDS: GABAPENTIN 100 MG CAP PO SCH (20:55)
[2017-02-11 23:50] VITALS: BP 118/68; PULSE 58; TEMP 36.6; O2SAT 95
[2017-02-12] MEDS: ALBUTEROL HFA 8 GM INHALER INH SCH ×3 (04:07→12:14)
[2017-02-12] MEDS: OXYCODONE/ACETAMINOPHEN 5-325 TAB PO PRN (04:08)
[2017-02-12 07:30] VITALS: BP 102/65; PULSE 84; TEMP 36.6; O2SAT 94
[2017-02-12] MEDS: POLYETHYLENE (MIRALAX) 17 GM PACK PO SCH (08:48)
[2017-02-12] MEDS: DOCUSATE SODIUM 100 MG CAP PO SCH (08:48)
[2017-02-12] MEDS: ATORVASTATIN 20 MG TAB PO SCH (08:49)
[2017-02-12] MEDS: POTASSIUM CHLORIDE 10 MEQ TABCR PO SCH (08:49)
[2017-02-12] MEDS: HYDROCHLOROTHIAZIDE 25 MG TAB PO SCH (08:49)
[2017-02-12] MEDS: CHOLECALCIFEROL 1000 INTER.UNIT TAB PO SCH (08:49)
[2017-02-12] MEDS: GABAPENTIN 100 MG CAP PO SCH (08:50)
[2017-02-12 09:51] VITALS: BP 132/76; PULSE 69; O2SAT 90
--- NOTE | 2017-02-12 14:04 | Progress Note ---
Internal Med Progress Note Date of Service: February 12, 2017. Provider Documentation: SUBJECTIVE: back pain much better , able to ambulate with walker independently( baseline ) , no loss of balance mentions of having pain in rt knee while walking but tolerable scheduled to have epidural injection tomorrow at 10 am at [facility] Pain clinic by Dr Corrina Vernon D/w Pt and his , pt is back to her baseline functional status , pain is controlled with oral meds both feels comfortable to return home and come to [place] tomorrow for epidural injection pt will be discharged home today OBJECTIVE: Vital Signs-as noted below Exam: General-no sign of distress, comfortable , pleasant Lungs-CTA Heart-regular S1/S2 Abdomen-soft, non tender Extremities-no rash or deformity Neuro-AAO x3, no focal deficit Lab data as noted below. ASSESSMENT & PLAN: BACK PAIN WITH RADIATION TO RT KNEE due to sciatica, lumber Radiculopathy ongoing for 3 months, progressively worsening x 2 weeks. Almost had a fall 1 month ago. -No neurological signs/symptoms -Work up- US LE- negative for DVT, Lumbar MRI- Moderate degenerative changes throughout, Mild multi level narrowing- L3-4, L4-L5 Rt knee MRI : no acute change spine Ortho evaluation -appreciate input form Dr Zheng recommends spinal steroid epidural injection for pain control it symptom does not improve after epidural procedure may consider L3-L4 spinal decompression surgery in future Pain management consulted for intractable pain /Sciatica appreciate input form Dr Corrina Quiroz scheduled for out patient spinal epidural steroid injection in [facility] pain clinic in [place] on Saturday02/13/17 at 10 am [address], [place] [id number] NPO past midnight on Saturday pt will be discharged home today will come to [facility] Pain clinic tomorrow for spinal epidural injection AMBULATORY DYSFUNCTION Secondary to above. Difficulty walking with her walker x 2 weeks -PT/OT -symptom has much improved , able to walk with walker in room ,no loss of balance noted Pt feels back to her baseline functional status will be discharged home with home health /home PT DVT PROPHYLAXIS moderate risk will D/C Sub q Lovenox -possible intra articular steroid injection scd and teds DISPOSITION DISCHARGE HOME TODAY Vital Signs: Date Time Temp Pulse Resp B/P Pulse Ox O2 Delivery O2 Flow Rate FiO2 5/9/17 09:51 69 90 02/12/17 07:45 Nasal Cannula 2.0 94 02/12/17 07:30 36.6 84 20 102/65 94 Nasal Cannula 2.0 02/12/17 07:30 94 Nasal Cannula 2.0 02/11/17 23:50 36.6 58 16 118/68 95 02/11/17 22:25 Nasal Cannula 2.0 02/11/17 19:18 Nasal Cannula 2.0 02/11/17 16:00 36.6 56 18 124/81 95 Nasal Cannula 2.0 02/11/17 15:15 Nasal Cannula 2.0 02/11/17 15:00 36.5 65 18 137/85 92 Nasal Cannula 2.0
--- NOTE | 2017-02-12 14:08 | Discharge Instructions ---
Discharge Instructions Date of Service February 12, 2017. Admission Reason for Admission: Acute Pain Of Right Lower Extremity Discharge Discharge Diagnosis / Problem: LOW BACK PAIN /RT KNEE PAIN /SCIATICA Discharge Goals Goal(s): Decrease discomfort, Improve function, Diagnostic testing Activity Recommendations Activity Limitations: resume your previous activity . Instructions / Follow-Up Instructions / Follow-Up HOSPITAL FOLLOW UP WITH 02/18/2017 @ 10:[address] Amarilys Viveros MD Internal Medicine [facility] SCHEDULED TO HAVE EPIDURAL STEROID INJECTION AT [facility] BY DR JONATHAN ARRIAGA ON Saturday02/13/17 AT 10 AM ADDRESS : [address] [place] [address] [address], [facility] [phone] NEEDS TO BE NOTHING BY MOUTH AFTER MID NIGHT EXCEPT FOR MED ON Saturday02/12/17 DO NOT TAKE ASPIRIN OR ANY TYPE OF BLOOD THINNER PRIOR TO EPIDURAL INJECTION PAIN MEDICATIONS -PERCOCET CAN CAUSE SIGNIFICANT CONSTIPATION CONTINUE TO DRINK PLENTY OF FLUID AND INCREASE INTAKE OF FIBERS -FRUITS AND VEGETABLES TO PREVENT CONSTIPATION TAKE STOOL SOFTENER -COLACE /MIRALAX DO NOT DRIVE WHILE TAKING PAIN MEDS FOLLOW UP WITH SPINAL ORTHOPEDICS DR ESTEVEZ IF YOU CONTINUE TO HAVE BACK PAIN EVEN AFTER SPINAL EPIDURAL INJECTION Current Hospital Diet Patient's current hospital diet: Regular Diet Discharge Diet Recommended Diet: Regular Diet Pending Studies Studies pending at discharge: no Medical Emergencies . Who to Call and When: Medical Emergencies: If at any time you feel your situation is an emergency, please call 911 immediately. . Non-Emergent Contact Non-Emergency issues call your: Primary Care Provider . . "Provider Documentation" section prepared by Berenice Alcantar. . VTE Core Measure Inpt VTE Proph given/why not?: Gilma [place], SCD's [place] Drug Monitoring Program Search Results: no issues identified
--- NOTE | 2017-02-12 14:22 | Discharge Summary ---
Discharge Summary Date of Service February 12, 2017. Discharge Summary Admission Date: February 09, 2017 at 14:22 Discharge Date: February 12, 2017 Discharge Disposition: Home with services Principal Diagnosis: LOW BACK PAIN /RT KNEE PAIN /SCIATICA Procedures: MRI LUMBER SPINE : 1. Moderate degenerative disc change throughout the entire lumbar region. 2. Mild multifactorial narrowing of the spinal canal at L3-L4 and L4-L5. 3. No major compromise of the spinal canal or neural foramina MRI OF RT KNEE : IMPRESSION: No evidence of internal derangement. Examination limited due to motion artifact. LOWER EXT DOPPLER -RT LOWER EXTREMITY ; Normal study LUMBAR SPINE 5 VIEWS HISTORY: Pain. Neuropathy. RLE PAIN COMPARISON: None. FINDINGS: There is no fracture. No subluxation. Moderate degenerative disc changes throughout. No evidence for compression deformity. IMPRESSION: Moderate degenerative change. No acute process. Consultations: PAIN MANAGEMENT : DR JONATHAN ARRIAGA [facility] DR ZHENG Medication Reconciliation New Medications: Calcium Carbonate (Tums) 500 Mg Chew 500 MG PO QID PRN for Heartburn, #30 Docusate Sodium (Docusate Sodium) 100 Mg Cap 100 MG PO BID, #60 CAP Gabapentin (Gabapentin) 100 Mg Cap 100 MG PO BID for 30 Days, #60 CAP Oxycodone/Acetaminophen 5MG/325MG (Percocet 5MG/325MG) Tab 1 TAB PO Q4H PRN for Pain, #30 TAB PAIN Polyethylene (Miralax) 17 Gm Pow 17 GM PO DAILY, #30 Continued Medications: Acetaminophen (Tylenol) 500 Mg Tab 500 MG PO UD PRN for h, TAB Albuterol Hfa (Ventolin Hfa) 200 Puffs/75660 Mcg Aers 2-4 PUFFS INH Q4, #1 INHALER Atenolol (Tenormin) 50 Mg Tab 50 MG PO DAILY Atorvastatin (Lipitor) 20 Mg Tab 20 MG PO DAILY, TAB Biotin (Biotin) 1,000 Mcg Tab 1000 MCG PO TID Cholecalciferol (Vitamin D3) 1,000 Unit Cap 1 CAP PO DAILY Dicyclomine Hcl (Dicyclomine Hcl) 20 Mg Tab 20 MG PO BID PRN for abd pain Hydrochlorothiazide (Hydrochlorothiazide) 25 Mg Tab 1 TAB PO DAILY Ipratropium-Albuterol (Duoneb) 3 Ml Nebu 1 VIAL INH QID PRN for SOB/Wheezing Potassium Chloride Microencaps (Potassium Chloride Er) 10 Meq Tab 10 MEQ PO DAILY for 30 Days, #30 TAB 5 Refills Referrals At Discharge Follow up Referrals: Orthopedics Referral - Within 6 Weeks with Mati Zheng D.O. Physician Referral - 02/13/17 with Jonathan Arriaga DO Admission Information HPI (per Admitting provider): This is a 71 y/o female with PMHx of CKD stage 3, Severe COPD, HTN, Dyslipidemia and other problems as outlined below who presents to the ED c/o RLE pain x 3 months. Pt reports that 3 months ago she developed pain to her RLE with ambulation. About 1 month ago patient tripped and almost fell however she caught herself with her R leg in a twisting motion. Since that time, the pain in her R knee got much worse and her R knee frequently feels like it "gives out ". She states she has 10/10 pain in her knee that radiates to the ankle and up into groin. The pain is worse with weight bearing and better with rest. She denies back pain, significant swelling or bruising. She has been taking Tylenol to alleviate her pain with no relief. For the past 2 days patient has been using a walker to assist with ambulation and this morning patient was unable to walk at all due to excruciating pain. Pt denies fever/chills, diaphoresis, chest pain, palpitations, SOB, wheezing, abd pain, vomiting, bowel or bladder issues, lightheadedness/dizziness. In the ED, vitals are stable. Labs reviewed are WNL. Lumbar Spine MRI + mod degenerative changes. LE US neg for DVT. Pt is stable and will be admitted for further evaluation and treatment. Physical Exam (per Admitting): General Appearance: WD/WN, no apparent distress, + obese, + pertinent finding (Pt is laying in bed with and daughter at bedside) Head: normocephalic, atraumatic Eyes: normal inspection ENT: hearing grossly normal Neck: supple Respiratory/Chest: chest non-tender, lungs clear, normal breath sounds, no respiratory distress Cardiovascular: regular rate, rhythm, no murmur Abdomen/GI: normal bowel sounds, non tender, soft Back: normal inspection, + pertinent finding (no spinal or paraspinal tenderness) Extremities/Musculoskelatal: normal inspection, no calf tenderness, no pedal edema, + pertinent finding (tenderness to palpation of R knee; no significant swelling or ecchymosis noted) Neurologic/Psych: alert, normal mood/affect, oriented x 3 Skin: normal color, warm/dry Hospital Course BACK PAIN WITH RADIATION TO RT KNEE due to sciatica, lumber Radiculopathy ongoing for 3 months, progressively worsening x 2 weeks. Almost had a fall 1 month ago. -No neurological signs/symptoms -Work up- US LE- negative for DVT, Lumbar MRI- Moderate degenerative changes throughout, Mild multi level narrowing- L3-4, L4-L5 Rt knee MRI : no acute change spine Ortho evaluation -appreciate input form Dr Zheng recommends spinal steroid epidural injection for pain control it symptom does not improve after epidural procedure may consider L3-L4 spinal decompression surgery in future Pain management consulted for intractable pain /Sciatica appreciate input form Dr Jonathan Quiroz scheduled for out patient spinal epidural steroid injection in [facility] pain clinic in [place] on Saturday02/13/17 at 10 am [address] [place] [facility] [id number] NPO past midnight on Saturday pt will be discharged home today will come to [facility] Pain clinic tomorrow for spinal epidural injection AMBULATORY DYSFUNCTION Secondary to above. Difficulty walking with her walker x 2 weeks -PT/OT -symptom has much improved , able to walk with walker in room ,no loss of balance noted Pt feels back to her baseline functional status will be discharged home with home health /home PT DVT PROPHYLAXIS moderate risk will D/C Sub q Lovenox -possible intra articular steroid injection scd and teds DISPOSITION DISCHARGE HOME TODAY Discharge Instructions Discharge Instructions Date of Service February 12, 2017. Admission Reason for Admission: Acute Pain Of Right Lower Extremity Discharge Discharge Diagnosis / Problem: LOW BACK PAIN /RT KNEE PAIN /SCIATICA Discharge Goals Goal(s): Decrease discomfort, Improve function, Diagnostic testing Activity Recommendations Activity Limitations: resume your previous activity . Instructions / Follow-Up Instructions / Follow-Up HOSPITAL FOLLOW UP WITH 02/18/2017 @ 10:[address] Amarilys Viveros MD Internal Medicine [facility] SCHEDULED TO HAVE EPIDURAL STEROID INJECTION AT [facility] BY DR JONATHAN ARRIAGA ON Saturday02/13/17 AT 10 AM ADDRESS : [address], [facility] [id number] NEEDS TO BE NOTHING BY MOUTH AFTER MID NIGHT EXCEPT FOR MED ON Saturday02/12/17 DO NOT TAKE ASPIRIN OR ANY TYPE OF BLOOD THINNER PRIOR TO EPIDURAL INJECTION PAIN MEDICATIONS -PERCOCET CAN CAUSE SIGNIFICANT CONSTIPATION CONTINUE TO DRINK PLENTY OF FLUID AND INCREASE INTAKE OF FIBERS -FRUITS AND VEGETABLES TO PREVENT CONSTIPATION TAKE STOOL SOFTENER -COLACE /MIRALAX DO NOT DRIVE WHILE TAKING PAIN MEDS FOLLOW UP WITH [facility] DR ZHENG IF YOU CONTINUE TO HAVE BACK PAIN EVEN AFTER SPINAL EPIDURAL INJECTION Current Hospital Diet Patient's current hospital diet: Regular Diet Discharge Diet Recommended Diet: Regular Diet Pending Studies Studies pending at discharge: no Medical Emergencies . Who to Call and When: Medical Emergencies: If at any time you feel your situation is an emergency, please call 911 immediately. . Non-Emergent Contact Non-Emergency issues call your: Primary Care Provider . . "Provider Documentation" section prepared by Berenice Alcantar. . VTE Core Measure Inpt VTE Proph given/why not?: Gilma Wilson, SCD's [place] Drug Monitoring Program Search Results: no issues identified Additional Copies To Amarilys Viveros M.D. Gilbert, Jennifer L., DO
[2017-02-12 14:32] VITALS: BP 132/76; PULSE 69; TEMP 36.6; O2SAT 90
[2017-06-08] MEDS ORDERED: ATOR-22 PO (06:21)
[2017-06-08] MEDS ORDERED: VNTHFA/IN INH (09:47)
[2017-06-08] MEDS ORDERED: ACET-1256 PO (09:47)
[2017-06-08] MEDS ORDERED: CHOL1CAP57 PO (11:02)
[2017-06-08] MEDS ORDERED: ATEN-174 PO (11:02)
[2017-06-08] MEDS ORDERED: HYDR25TA5 PO (11:02)
[2017-06-08] MEDS ORDERED: POTA10TA32 PO (14:25)
[2017-08-07] MEDS ORDERED: PLMINS NEB (21:49)
[2017-08-07] MEDS ORDERED: ONDA4TAB10 SL (22:14)
[2017-08-07] MEDS ORDERED: ANT25 PO (22:14)
== END 2017-02-12 16:00 | disposition home health service (06) ==
LOC: ENRESERVDT → ENRESERVTM → EDBD 08:06 → C.EDA 08:07 → C.MSW 14:22
PROVIDERS: ADMIT Internal Medicine; ATTEND Internal Medicine
DX: M25.561 Pain in right knee (principal); M54.5 Low back pain; M54.31 Sciatica, right side; R26.9 Unspecified abnormalities of gait and mobility; N18.3 Chronic kidney disease, stage 3 (moderate); J44.9 Chronic obstructive pulmonary disease, unspecified; I12.9 Hypertensive chronic kidney disease with stage 1 through stage 4 chronic kidney disease, or unspecified chronic kidney disease; E78.5 Hyperlipidemia, unspecified; K21.9 Gastro-esophageal reflux disease without esophagitis; Z87.891 Personal history of nicotine dependence; Z90.710 Acquired absence of both cervix and uterus; Z83.3 Family history of diabetes mellitus; Z82.49 Family history of ischemic heart disease and other diseases of the circulatory system; Z79.899 Other long term (current) drug therapy; M79.604 Pain in right leg; R60.0 Localized edema

== ENCOUNTER → 2017-03-25 | Outpatient (CLI) | payer OTHER ==
[~2017-03-25] MED LIST changes: +ACET-1256 PO; -ALBUAER2 INH; +ANT25 PO; +ATEN-174 PO; +ATOR-22 PO; +BIOT1TAB5 PO; +CAMPLOT10 TOP; +CEPH500C PO; +CHOL1CAP57 PO; +CLC100 PO; +DICY20TA10 PO; +HYDR-3124 PO; +HYDR25TA5 PO; +IPRASOL4 INH; +LSX20 PO; +MRLP17 PO; +NRN100 PO; +ONDA4TAB10 SL; +OXYC-57 PO; +PLMINS NEB; -POTA-331 PO; +POTA10TA32 PO; -PRLSR20 PO; +TRMO2580 TOP; +TUMS PO; +VNTHFA/IN INH
--- NOTE | 2017-03-30 08:44 | POLYSOMNOGRAPH REPORT ---
CLINICAL DATA: The patient is a 71-year-old female with a history of increasing shortness of breath, snoring, disturbed nocturnal sleep, and daily naps. Her BMI is 38.92. On the evening of 03/25/2017, a home sleep apnea test was performed using a [employer] type 3 monitor. RECORDING RESULTS: Total recording time was 10 hours. The patient's estimated sleep time was 5.6 hours. RESPIRATORY DATA: Moderate sleep apnea was noted. The JT was elevated at 28.7 events per hour. She had 36 obstructive apneas and 125 hypopneas. Hypopneas were scored by the 4% desaturation rule. The maximum respiratory event was 51 seconds. OXIMETRY DATA: Nocturnal hypoxia was noted. The mean saturation was 88%. The minimum saturation was 69%. The estimated sleep time below 89% was 204 minutes. HEART RATE DATA: Heart rates showed a minimum of 41 beats per minute. The mean heart rate was 57 beats per minute. SNORING DATA: Some snoring was present during the study. IMPRESSION: Obstructive sleep apnea -- moderate. RECOMMENDATIONS: It is advised that the patient be treated with nasal CPAP therapy. The options would include an in-lab CPAP titration study versus treatment with auto-CPAP.
== END | disposition home or self-care (01) ==
LOC: C.NEUR 09:43
PROVIDERS: ATTEND Internal Medicine Pulmonary Disease
DX: G47.33 Obstructive sleep apnea (adult) (pediatric) (principal)

== ENCOUNTER → 2017-05-11 | Outpatient (CLI) | payer OTHER ==
[~2017-05-11] MED LIST changes: -ANT25 PO; -ONDA4TAB10 SL; -PLMINS NEB
--- NOTE | 2017-05-12 04:56 | PAP/PSG TECHNICIAN REPORT ---
[facility] Investment Analyst Polysomnogram Report Study name: None Report date: 05/12/2017 Study date: 05/11/2017 Referring Physician: MINA LIZARRAGA DO, DO Name: BENNIE GUTIÉRREZ Interpreting Physician: Mina Lizarraga D.O. Date of : 1945 Investment Analyst: BENEDICTO Jarrett. Sex: Female Age: 71 StudyType: PSG PAP Weight: 206 lbs Height: 71 years, Height 5' 1" BMI: 38.92 Medications: Atenolol 50mg, Atorvastatin 20mg, Biotin 1000mcg, Dicyclomine HCl 20mg, Flonase 50mcg/act, HCTZ 25mg, Klor-Con M10 10MEQ, Omeprazole 20mg, Vit D 1000 unit, Oxygen 2 lpm Patient History Study started on room air with 4cwp cpap in room 36. 71 yr old female here tonight for a new titration study. She had a HST that had an JT of 28.7. She has edema in both lower extremities tonight. Parameters Monitored NPSG: E1-M2, E2-M1, Fp1-M2, Fp2-M1, F3-M2, F4-M2, F4-M1, C3-M2, C4-M2, C4-M1, O1-M2, O2-M2, O2-M1, T3-M2, T4-M1, P3-M2, P4-M1, CHIN1, CHIN2, HR, EKG, Legs, PFLOW, SNOR, FLOW, CFLOW, Tidal Volume, THOR, ABDO, SpO2, PLTH, CPRESS, ETCO2 Wave, ETCO2, pH Sleep Architecture Sleep Stages Time at Lights Off 10:22:36 PM STAGES Time (min.) TST (%) Time at Lights On 4:26:36 AM Wake 354.0 -- Total Recording Time (TRT) 364.00 min. N1 5.5 55 Total Sleep Period (TSP) 123.5 min. N2 4.5 45 Total Sleep Time (TST) 10.0min. N3 0.0 0 Awake Time 354.0 min. REM 0.0 0 Wake after Sleep Onset 276.5 min. Sleep Efficiency (SE) 3 % Sleep Onset Latency (YUSEF) 77.5 min. Number of Stage 1 Shifts None Awakenings 13 Stage Changes 30 Number of REM periods N/A REM 0.0 0 REM Latency NONE min. NREM 10.0 100 Body Position Analysis Supine Right Left Side Prone Vertical Total Sleep Time (min.) 364.0 0.0 0.0 0.00 0.0 0.0 Total Sleep Time (%) 100% 0% 0% 0 0% N/A% Total Sleep Time REM (min.) 0.0 0.0 0.0 None 0.0 0.0 Total Sleep Time NREM (min.) 10.0 0.0 0.0 None 0.0 0.0 Intermittent Wake (min.) 354.0 0.0 0.0 None 0.0 0.0 Total Sleep Period (%) 100% None None None None None Arousals Myoclonus (PLM) * Events Count Index Events Count Index Spontaneous 1 6 Events Awake (PLMW) 423 71.7 Respiratory 9 90.0 Events Asleep w/ Arousal (PLMA) 0 0.0 PLM 0 0 Events Asleep w/o Arousal (PLMS) 0 0.0 Snoring 0 0 Total Asleep 0 0.0 Total 10 60 Total 423 70 Respiratory Analysis * CA OA MA CH H RERA Total Count 0 1 0 0 13 1 14 Index 0.0 6.0 0.0 0 78.0 6 90.0 Mean Duration 0.0 19.4 0.0 0.00 18.1 24.2 18.6 Longest Duration 0.0 19.4 0.0 0.00 0.0 24.2 24.2 Respiratory Event Summary Total Supine ~Supine Right Left Prone REM NREM Apneas Count 1 1 N/A N/A N/A N/A N/A 1 Index 6.0 6 N/A N/A N/A N/A N/A 6 Hypopneas (4% Desat) Count 13 13 N/A N/A N/A N/A N/A 13 Index 78.0 78.0 N/A N/A N/A N/A N/A 78.0 Apneas & All Hypopneas Count 14 14 N/A N/A N/A N/A N/A 14 Index 84.0 84 N/A N/A N/A N/A N/A 84.0 Respiratory Events (Toxicologist+All Hyp+RERA) Count 14 15 N/A N/A N/A N/A N/A 14 Index 90.0 90 N/A N/A N/A N/A N/A 90.0 Respiratory Related Arousal Count 9 15 N/A N/A N/A N/A N/A 15 Index 90.0 90 N/A N/A N/A N/A N/A 90 Snoring Analysis Supine Right Left Prone REM NREM Total Snore duration 0.0 min Snores count 0 N/A N/A N/A N/A 0 0 Snore mean duration 0.0 Sec Snores index 0 N/A N/A N/A N/A 0.0 0.0 TST with snoring (%) 0.0% Desaturation Event Summary: Minimum %SpO2 Event Count Mean/Min/Max Duration(sec.) Desaturation Index % Time In Bed > 90 50 30.7 / 13.5 / 59.8 20.5 44.7 86 - 90 47 27.1 / 12.0 / 57.5 16.1 53.5 81 - 85 1 21.0 / 21.0 / 21.0 10.3 1.8 76 - 80 0 N/A 0.0 0.0 71 - 75 0 N/A 0.0 0.0 66 - 70 0 N/A 0.0 0.0 61 - 65 0 N/A 0.0 0.0 56 - 60 0 N/A 0.0 0.0 51 - 55 0 N/A 0.0 0.0 < 50 0 N/A 0.0 0.0 Total REM NREM Awake <50% 0.0 min. 0.0 min. 0.0 min. 0.0 min. 51 - 60% 0.0 min. 0.0 min. 0.0 min. 0.0 min. 61 - 70% 0.0 min. 0.0 min. 0.0 min. 0.0 min. 71 - 80% 0.0 min. 0.0 min. 0.0 min. 0.0 min. 81 - 90% 181.1 min. 0.0 min. 8.3 min. 172.8 min. 91 - 100% 146.2 min. 0.0 min. 1.7 min. 144.6 min. Average 90 0 89 90 Minimum SpO2 82 N/A 83 82 Desaturation Event Index 11.2 0.0 60.0 10.2 # Desat. Events below 89% 62 N/A 10 52 Time(%) with Saturation below 89% 25.4 0.0 1.4 24.1 Time(min.) with Saturation below 89% 83.2 0.0 4.5 78.7 Time (mins) REM (mins) NREM (mins) % of TST SpO2 Below 90% 10 N/A N10 61.5 SpO2 Below 88% 5 0 0 29 Heart Rate Analysis Min (bpm) Max (bpm) Average (bpm) Awake 49 127 61 NREM 50 61 55 REM N/A N/A N/A Overall 50 61 55 Supplemental O2 Values Minimum O2 level: None Value Start Time End Time Investment Analyst Comments Mrs. Gutiérrez slept in the supine position with the head of her bed elevated. She had very little sleep and was very anxious and cried throughout the study. No cardiac arrhythmia or PLM's noted. No bruxism noted. CPAP was initiated at +4 CMH2O and up-titrated to a level of +10 CMH2O. She immediately asked to have the pressure increased to 6 because she felt as though she was suffocating. As soon as she fell asleep she had respiratory events and the pressure was increased. At a setting of 8cwp she asked to have the pressure increased again for the same reason mentioned above. Numerous masks and various sizes of masks were used during titration. The Airfit F 10, the Mirage Quattro, the Quattro Air, the Simplus and the Elizabeth View were all tried. She had the best results with the small Mirage Quattro full face mask by [employer]. She could not use a nasal mask because of mouth breathing. She used the restroom once during the night. She stated that this night was a little worse than normal but there are many nights that she cannot sleep well. Around 4:30 am she did not want to put the mask back on and the study was ended . The final report will be interpreted and signed by a sleep physician. The completed physician report will then be placed in the patient medical record. Therapy Event: Therapy (cm H20) 4 6 7 8 10 Total Time at Pressure (min.) 62.0 42.8 44.4 167.4 47.3 TST at Pressure (min.) 0.0 2.0 2.0 6.0 0.0 # Periods 1 1 1 1 1 Sleep Onset (min.) N/A 15.5 33.1 34.7 N/A REM Onset (min.) N/A N/A N/A N/A N/A Sleep Efficiency % 0 4 4 3 0 Wakefulness (%) 100.0 95.3 95.5 96.4 100.0 Wakefulness (min.) 62.0 40.8 42.4 161.4 47.3 NREM 1 (%) 0.0 2.3 1.1 2.4 0.0 NREM 1 (min.) 0.0 1.0 0.5 4.0 0.0 NREM 2 (%) 0.0 2.3 3.4 1.2 0.0 NREM 2 (min.) 0.0 1.0 1.5 2.0 0.0 NREM 3 (%) 0.0 0.0 0.0 0.0 0.0 NREM 3 (min.) 0.0 0.0 0.0 0.0 0.0 REM (%) 0.0 0.0 0.0 0.0 0.0 REM (min.) 0.0 0.0 0.0 0.0 0.0 # Arousals N/A 0 3 7 N/A Arousal Index N/A 0.0 90.0 70.0 N/A # Snore N/A 0 0 0 N/A Snore Index N/A 0.0 0.0 0.0 N/A AHI N/A 0.0 120.0 100.0 N/A AHI Supine N/A 0.0 120.0 100.0 N/A AHI Non-Supine N/A N/A N/A N/A N/A NREM AHI N/A 0.0 120.0 100.0 N/A REM AHI N/A N/A N/A N/A N/A RDI N/A 30.0 120.0 100.0 N/A # Obstructive N/A 0 0 1 N/A # Central Ap N/A 0 0 0 N/A # Mixed N/A 0 0 0 N/A # Hypopneas N/A 0 4 9 N/A RERAS N/A 1 0 0 N/A Total Respiratory Events N/A 1 4 10 N/A Time Below SpO2 89.00% (min.) 0.0 1.2 0.3 2.9 0.0 Mean NREM SpO2 (%) N/A 88 90 88 N/A Mean REM SpO2 (%) N/A N/A N/A N/A N/A Mean Sleep SpO2 (%) N/A 88 90 88 N/A Min NREM SpO2 (%) N/A 85 85 83 N/A Min REM SpO2 (%) N/A N/A N/A N/A N/A Position Supine (min.) 0.0 2.0 2.0 6.0 0.0 Position Non-supine (min.) 0.0 0.0 0.0 0.0 0.0 LM Index Sleep N/A 0.0 0.0 0.0 N/A LM Index NREM N/A 0.0 0.0 0.0 N/A LM Index REM N/A N/A N/A N/A N/A Mean Heart Rate (bpm) N/A 54 57 55 N/A Min Heart Rate (bpm) N/A 52 54 50 N/A
--- NOTE | 2017-05-14 20:21 | Sleep Study ---
Sleep Study Report Date of Service: 05/11/2017 Sleep Study Report Clinical data: The patient is a 71-year-old female with a BMI of 38.92. She has had complaints of shortness of breath, snoring, disturbed nocturnal sleep, and daily naps. A home sleep study was done 03/25/2017 which showed an apnea- hypopnea index of 28.7. [facility]. Sleep architecture: The total sleep period was 123.5 minutes. The total sleep time was 10 minutes. Sleep efficiency was severely reduced to 3%. Sleep latency was prolonged to 77.5 minutes. Wake after sleep onset was severely prolonged at 276.5 minutes. Sleep consisted of stage N1 55%, stage N2 45%, stage N3 0%, and stage REM 0%. Arousal data: The patient had 10 arousals including 1 spontaneous arousal in 9 respiratory arousals. The arousal index was 60. PLM data: There were 0 periodic limb movements of sleep for a PLM index of 0. She did however have 423 leg movements during wake. EKG: The cardiac rhythm was normal sinus. There was no cardiac arrhythmia. The cardiac rates ranged from 52 61 beats per minute. The average heart rate was 55 beats per minute. Respiratory data: The patient is respiratory events were treated with nasal CPAP. There were a total of 14 respiratory events including 1 obstructive apnea and 13 hypopneas. Hypopneas were scored according to the 4% desaturation rule. The apnea- hypopnea index was severely elevated at 84.0. One must take into account however the fact that the patient's total sleep time was only 10 minutes. The longest apnea was 19.4 seconds. The mean hypopnea was 18.1 seconds. She had 1 RERA. Oximetry data: The average saturation was 90%. The minimum saturation was 82%. She had a total of 83.2 minutes with saturations less than 90%. Socket Puller comments: The patient slept in the supine position with the head of her bed elevated. She was very anxious and cried throughout the study. No cardiac arrhythmia or PLMS noted. No bruxism noted. CPAP was initiated at 4 cm and up titrated to a level of 10 cm. She immediately asked to have the pressure increased to 6 because she felt as though she was suffocating. As soon as she fell asleep she had respiratory events and the pressure was increased. At a setting of 8 cm she asked to have the pressure increased again for the same reason mentioned above. Numerous masks and various sizes of masks were used during titration. These include the air fit F10, the Mirage Quattro, the Quattro air, the Simplus , and the Elizabeth View. She appeared to do best with the small Mirage Quattro full face mask by [employer]. She could not use a nasal mask because of mouth breathing. Impressions: 1. Obstructive sleep apnea 2. Insomnia Comments: Patient did poorly with nasal CPAP. She had a total of only 10 minutes of sleep. She had significant respiratory events during the few minutes that she was sleeping. No definitive data can be obtained from this study. It is suspected that the patient may have been claustrophobic. Numerous masks were tried as noted without significant benefit. Recommendations: 1. Consideration could be given to a trial of auto CPAP if the patient would be agreeable. 2. Consideration may be given to a trial of a hybrid mask which might be less overwhelming for her. 3. The patient should avoid sleeping in the supine position. She was supine for this entire night. 4. Weight loss is advised in light of the elevation of body mass index of 38.92. 5. If the patient refuses treatment with nasal CPAP therapy, would then suggest having an overnight pulse oximetry study done to determine if she is a candidate for nocturnal oxygen therapy. Copies To 1: Mina Soriano DO; Amarilys Viveros M.D.
== END | disposition home or self-care (01) ==
LOC: C.NEUR 20:00
PROVIDERS: ATTEND Internal Medicine Pulmonary Disease
DX: G47.33 Obstructive sleep apnea (adult) (pediatric) (principal)

== ENCOUNTER 2017-06-08 19:10 | Emergency (ER) | payer OTHER ==
[~2017-06-08] VITALS: Ht 157.5 cm; Wt 96.5 kg
[~2017-06-08 19:10] MED LIST changes: -CAMPLOT10 TOP; -CEPH500C PO; -DICY20TA10 PO; -HYDR-3124 PO; -IPRASOL4 INH; -LSX20 PO; -TRMO2580 TOP
[2017-06-08 19:13] VITALS: Ht 157.5 cm; Wt 96.5 kg
[2017-06-08] MEDS ORDERED: FUROSEMIDE 40 MG/4 ML VIAL IV STA (19:28)
[2017-06-08] MEDS ORDERED: CEFTRIAXONE SOD INJ 1 GM ADDVIAL IV STA (19:28)
--- NOTE | 2017-06-08 19:40 | EMERGENCY ROOM VISIT NOTE ---
History Report prepared by Latrice: Timo Watson Under the Supervision of: Dr. Jose D Saenz M.D. First contact with patient: 19:21 Chief Complaint: EDEMA TO EXTREMITY Stated Complaint: SWELLING IN BOTH LEGS AND FEET WITH PAIN History of Present Illness The patient is a 71 year old female who presents to the Emergency Room with complaints of worsening bilateral edema to the lower extremities beginning four months ago. The patient states that she has had edema for the past four months, but today it increased and now she has pain. She reports that it feels like her circulation is being cut off, and it is tender in her right calf. The patient notes that she saw her PCP yesterday, and was told that it was from her COPD. She denies being on a diuretic because she states it did not work when she was on it. The patient states that she experiences occasional chills and numbness to her feet. She denies fevers, dysuria, increased shortness of breath, and urinary problems. The patient reports that she also denies a history of blood thinners, blood clots, cellulitis, and heart failure. She notes that she is on 2L of oxygen at home. The patient states that she is watching the amount of salt she consumes, and she denies excessive standing. She notes she just had a stress test and it was okay, but she failed her sleep apnea test. Source of History: patient Onset: four months ago Position: leg (bilateral, lower) Quality: other (edema) Timing: worsening Associated Symptoms: + chills (occasional), + numbness (to her feet), No fevers, No SOB, No urinary symptoms Review of Systems See HPI for pertinent positives & negatives. A total of 10 systems reviewed and were otherwise negative. Past Medical & Surgical Medical Problems: (1) Acute pain of right lower extremity (2) CKD (chronic kidney disease) stage 3, GFR 30-59 ml/min (3) COPD, severe (4) Dyslipidemia (5) GERD (gastroesophageal reflux disease) (6) Hypertension (7) IBS (irritable bowel syndrome) Surgical Problems: (1) H/O esophagogastroduodenoscopy (2) History of bilateral breast reduction surgery (3) History of tonsillectomy and adenoidectomy (4) History of total hysterectomy (5) History of ureter stent Family History Diabetes mellitus FH: lung disease FHx: heart disease Hypertension Social History Smoking Status: Former Smoker Alcohol Use: none Drug Use: none Marital Status: Housing Status: lives with family Occupation Status: retired Current/Historical Medications Scheduled Atenolol (Tenormin), 25 MG PO DAILY Atorvastatin (Lipitor), 20 MG PO DAILY Camphor & Menthol (Sarna), 1 APPLN TOP PRN Cephalexin Monohydrate (Keflex), 500 MG PO QID Cholecalciferol (Vitamin D3), 1 CAP PO DAILY Hydrochlorothiazide (Hydrochlorothiazide), 1 TAB PO DAILY Potassium Chloride Microencaps (Potassium Chloride Er), 10 MEQ PO DAILY Scheduled PRN Acetaminophen (Tylenol), 500 MG PO UD PRN for h Albuterol Hfa (Ventolin Hfa), 2 PUFFS INH Q4 PRN for SOB/Wheezing Calcium Carbonate (Tums), 500 MG PO QID PRN for Heartburn Dicyclomine Hcl (Dicyclomine Hcl), 20 MG PO BID PRN for abd pain Furosemide (Furosemide), 20 MG PO DAILY PRN for EDEMA Ipratropium-Albuterol (Duoneb), 1 VIAL INH QID PRN for SOB/Wheezing Allergies Coded Allergies: Adhesives (Verified Allergy, Intermediate, RASH, 02/09/17) Ibuprofen (Verified Allergy, Intermediate, RASH, 02/09/17) Latex (Verified Allergy, Intermediate, RASH, 02/09/17) Naproxen (Verified Allergy, Intermediate, SWELLING, RASH, HIVES, 02/09/17) Iodinated Diagnostic Agents (Verified Allergy, Unknown, ., 02/09/17) Physical Exam Vital Signs Date Time Temp Pulse Resp B/P (MAP) Pulse Ox O2 Delivery O2 Flow Rate FiO2 06/08/17 21:58 36.4 64 24 139/99 94 06/08/17 21:56 64 24 139/99 94 Room Air 06/08/17 19:52 97 Nasal Cannula 2.0 06/08/17 19:40 64 24 96 06/08/17 19:32 72 06/08/17 19:13 36.4 74 20 146/115 92 Nasal Cannula 2.0 Physical Exam GENERAL: Patient is in no acute distress. HEENT: No acute trauma, normocephalic atraumatic, mucous membranes moist, no nasal congestion, no scleral icterus. NECK: No stridor, no adenopathy, no meningismus, trachea is midline. LUNGS: Diminished breath sounds bilaterally, no wheeze, no rhonchi. HEART: Without murmurs gallops or rubs, regular rate and rhythm. ABDOMEN: Soft, nontender, bowel sounds positive, no hernias, no peritonitis. EXTREMITIES: Moderate bilateral pedal edema, some erythema and warmth noted, more on left. Consistent with possible cellulitis, no drainage. NEUROLOGIC: Oriented x 3, no acute motor or sensory deficits, no focal weakness. SKIN: No rash, no jaundice, no diaphoresis. Medical Decision & Procedures ER Provider Diagnostic Interpretation: Radiology results as stated below per my review and radiologist interpretation: BILATERAL LOWER EXTREMITY VENOUS DOPPLER HISTORY: Acute bilateral lower extremity pain and swelling. swelling COMPARISON STUDY: None. FINDINGS: There is normal compressibility, flow, and augmentation within the bilateral lower extremity deep venous systems. IMPRESSION: No sonographic evidence of deep venous thrombosis within the right or left lower extremity. Electronically signed by: Jayden Cheng M.D. 06/08/2017 8:45 PM Dictated Date/Time: 06/08/2017 8:44 PM CHEST ONE VIEW PORTABLE HISTORY: 71 years-old Female EVALUATE ALTERED MENTAL STATUS/WEAKNESS acute weakness. COMPARISON: Chest radiograph 06/05/2016 TECHNIQUE: Portable upright AP view of the chest FINDINGS: Cardiac silhouette is mildly enlarged. There is atherosclerosis of the aorta. No pneumothorax or large pleural effusion. Hazy subsegmental bibasilar opacities are noted in a subsegmental distribution. The bones are grossly intact. IMPRESSION: Subsegmental hazy bibasilar opacities suggest atelectasis. The above report was generated using voice recognition software. It may contain grammatical, syntax or spelling errors. Electronically signed by: Jaydne Cheng M.D. 06/08/2017 7:52 PM Dictated Date/Time: 06/08/2017 7:51 PM Laboratory Results 06/08/17 19:50 Red Blood Count 4.57, Mean Corpuscular Volume 97.2, Mean Corpuscular Hemoglobin 31.1, Mean Corpuscular Hemoglobin Concent 32.0, Mean Platelet Volume 9.4, Neutrophils (%) (Auto) 65.1, Lymphocytes (%) (Auto) 17.5, Monocytes (%) (Auto) 14.3, Eosinophils (%) (Auto) 2.4, Basophils (%) (Auto) 0.4, Neutrophils # (Auto ) 5.05, Lymphocytes # (Auto) 1.36, Monocytes # (Auto) 1.11, Eosinophils # (Auto ) 0.19, Basophils # (Auto) 0.03 06/08/17 19:50 Test 06/08/17 19:50 06/08/17 20:10 White Blood Count 7.76 K/uL (4.8-10.8) Red Blood Count 4.57 M/uL (4.2-5.4) Hemoglobin 14.2 g/dL (12.0-16.0) Hematocrit 44.4 % (37-47) Mean Corpuscular Volume 97.2 fL (80-100) Mean Corpuscular Hemoglobin 31.1 pg (25-34) Mean Corpuscular Hemoglobin Concent 32.0 g/dl (32-36) Platelet Count 176 K/uL (130-400) Mean Platelet Volume 9.4 fL (7.4-10.4) Neutrophils (%) (Auto) 65.1 % Lymphocytes (%) (Auto) 17.5 % Monocytes (%) (Auto) 14.3 % Eosinophils (%) (Auto) 2.4 % Basophils (%) (Auto) 0.4 % Neutrophils # (Auto) 5.05 K/uL (1.4-6.5) Lymphocytes # (Auto) 1.36 K/uL (1.2-3.4) Monocytes # (Auto) 1.11 K/uL (0.11-0.59) Eosinophils # (Auto) 0.19 K/uL (0-0.5) Basophils # (Auto) 0.03 K/uL (0-0.2) RDW Standard Deviation 48.2 fL (36.4-46.3) RDW Coefficient of Variation 13.6 % (11.5-14.5) Immature Granulocyte % (Auto) 0.3 % Immature Granulocyte # (Auto) 0.02 K/uL (0.00-0.02) Prothrombin Time 10.7 SECONDS (9.0-12.0) Prothromb Time International Ratio 1.0 (0.9-1.1) Activated Partial Thromboplast Time 26.6 SECONDS (21.0-31.0) Partial Thromboplastin Ratio 1.0 Anion Gap 6.0 mmol/L (3-11) Est Creatinine Clear Calc Drug Dose 67.9 ml/min Estimated GFR () 84.8 Estimated GFR (Non- 73.1 BUN/Creatinine Ratio 26.6 (10-20) Calcium Level 9.6 mg/dl (8.5-10.1) Magnesium Level 1.9 mg/dl (1.8-2.4) Total Bilirubin 0.3 mg/dl (0.2-1) Aspartate Amino Transf (AST/SGOT) 16 U/L (15-37) Alanine Aminotransferase (ALT/SGPT) 16 U/L (12-78) Alkaline Phosphatase 112 U/L (45-117) Troponin I < 0.015 ng/ml (0-0.045) Pro-B-Type Natriuretic Peptide 146 pg/ml (0-900) Total Protein 6.8 gm/dl (6.4-8.2) Albumin 3.3 gm/dl (3.4-5.0) Globulin 3.5 gm/dl (2.5-4.0) Albumin/Globulin Ratio 0.9 (0.9-2) Thyroid Stimulating Hormone (TSH) 1.320 uIu/ml (0.300-4.500) Urine Color YELLOW Urine Appearance CLEAR (CLEAR) Urine pH 6.5 (4.5-7.5) Urine Specific [place] 1.012 (1.000-1.030) Urine Protein NEG (NEG) Urine Glucose (UA) NEG (NEG) Urine Ketones NEG (NEG) Urine Occult Blood TRACE (NEG) Urine Nitrite POS (NEG) Urine Bilirubin NEG (NEG) Urine Urobilinogen NEG (NEG) Urine Leukocyte Esterase MODERATE (NEG) Urine WBC (Auto) 10-30 /hpf (0-5) Urine RBC (Auto) 0-4 /hpf (0-4) Urine Hyaline Casts (Auto) 0 /lpf (0-5) Urine Epithelial Cells (Auto) 20-30 /lpf (0-5) Urine Bacteria (Auto) 4+ (NEG) Laboratory results reviewed by me. Medications Administered Medications (Trade) Dose Ordered Sig/Carlos Route Start Time Stop Time Status Last Admin Dose Admin Furosemide (Lasix Inj) 40 mg NOW STAT IV 06/08/17 19:28 9/2/17 19:34 DC 06/08/17 19:54 40 MG Ceftriaxone Sodium (Rocephin Inj) 1 gm NOW STAT IV 06/08/17 19:28 06/08/17 19:34 DC 06/08/17 20:02 1 GM ECG Indication: other (edema) Rate (beats per minute): 67 Rhythm: normal sinus Findings: no acute ischemic change, no ectopy ED Course 1922: The patient was evaluated in room B07. A complete history and physical exam was performed. 1927: Ordered Rocephin Inj 1gm IV, Lasix Inj 40mg IV 2120: Reevaluated the patient. She is doing better, and she has urinated more due to the Lasix. Discussed results and discharge instructions: she verbalized understanding and agreement. Case management will discuss follow up appointments as an outpatient. 2141: I reevaluated the patient and discussed the consult with case management. The patient is ready for discharge. Medical Decision The patient is a 71 year old female who presents to the ED with complaints of bilateral edema to the lower extremities. Differential diagnoses considered include DVT, venous insufficiency, renal failure, electrolyte imbalance, anemia , fluid overload, cellulitis. There is no leukocytosis or concerning anemia. No significant electrolyte abnormality, kidney failure or hepatitis. The patient appears to be in a euthyroid state. Chest film does not show pneumonia or CHF. BNP is not elevated. EKG shows a normal sinus rhythm, no acute ischemia. Cardiac enzyme testing times one is not consistent with acute cardiac injury. Bilateral lower extremity ultrasound does not show DVT. Urinalysis is consistent with infection. Urine culture and blood cultures are pending. The patient presents with bilateral pedal edema. This has been ongoing but seems to have worsened in the last few days. She appears to have a localized cellulitis on exam. She has a UTI but workup. I think the combination of these 2 diagnoses plus venous insufficiency explains her edema. She did receive IV Lasix and has diuresed nicely. She was given IV ceftriaxone. The patient has DENA hose that she can use. She has Lasix at home to start to use again as well. I am going to discharge her on Lasix for 5 days, elevation of her legs, DENA hose, Keflex. The Keflex should cover the cellulitis and UTI. She will see her doctor this week and return here for worsening symptoms. Medication Reconcilliation Current Medication List: was personally reviewed by me Blood Pressure Screening Patient's blood pressure: Elevated blood pressure Blood pressure disposition: Elevated BP felt to be situational Impression Primary Impression: Pedal edema Additional Impressions: UTI (urinary tract infection) Cellulitis Scribe Attestation The scribe's documentation has been prepared under my direction and personally reviewed by me in its entirety. I confirm that the note above accurately reflects all work, treatment, procedures, and medical decision making performed by me. Departure Information Dispostion Home / Self-Care Prescriptions Cephalexin Monohydrate (Keflex) 500 Mg Cap 500 MG PO QID, #40 CAP Prov: Jose D Saenz M.D. 06/08/17 Referrals No Doctor, Assigned (PCP) Forms HOME CARE DOCUMENTATION FORM, IMPORTANT VISIT INFORMATION, WORK / SCHOOL INSTRUCTIONS Patient Instructions My [facility] [employer] Additional Instructions keep legs elevated when able Keflex 4x per day for 10 days wear the DENA hose Lasix 40 mg daily for 5 days see your doctor this week for a recheck return for fever, vomiting or worsening symptoms Problem Qualifiers
[2017-06-08 19:52] VITALS: O2SAT 97
--- NOTE | 2017-06-08 19:54 | DIAGNOSTIC IMAGING REPORT ---
CHEST ONE VIEW PORTABLE HISTORY: 71 years-old Female EVALUATE ALTERED MENTAL STATUS/WEAKNESS acute weakness. COMPARISON: Chest radiograph 06/05/2016 TECHNIQUE: Portable upright AP view of the chest FINDINGS: Cardiac silhouette is mildly enlarged. There is atherosclerosis of the aorta. No pneumothorax or large pleural effusion. Hazy subsegmental bibasilar opacities are noted in a subsegmental distribution. The bones are grossly intact. IMPRESSION: Subsegmental hazy bibasilar opacities suggest atelectasis. The above report was generated using voice recognition software. It may contain grammatical, syntax or spelling errors. Electronically signed by: Jayden Cheng M.D. 06/08/2017 7:52 PM Dictated Date/Time: 06/08/2017 7:51 PM
[2017-06-08] MEDS ORDERED: CAMPLOT10 TOP (20:13)
[2017-06-08] MEDS ORDERED: LSX20 PO (20:13)
[2017-06-08 20:17] LABS: BASO % 0.4 %; BASO ABS # 0.03 K/uL (0-0.2); COMPLETE YES; EOS % 2.4 %; HEMATOCRIT 44.4 % (37-47); IG% 0.3 %; LYMPH % 17.5 %; LYMPH ABS # 1.36 K/uL (1.2-3.4); MEAN CELL VOLUME 97.2 fL (80-100); MEAN CORPUSCULAR HEMOGLOBIN 31.1 pg (25-34); MEAN PLATELET VOLUME 9.4 fL (7.4-10.4); MONO % 14.3 %; NEUT % 65.1 %; PLATELET COUNT 176 K/uL (130-400); RED BLOOD COUNT 4.57 M/uL (4.2-5.4); WHITE BLOOD COUNT 7.76 K/uL (4.8-10.8)
[2017-06-08 20:30] LABS: PROTHROMBIN TIME (PATIENT) 10.7 SECONDS (9.0-12.0)
[2017-06-08 20:30] LABS: URINE APPEARANCE CLEAR (CLEAR); URINE BILIRUBIN NEG (NEG); URINE COLOR YELLOW; URINE EPITHELIAL CELL AUTO 20-30 /lpf (0-5); URINE NITRITE POS (NEG); URINE PH 6.5 (4.5-7.5); URINE SPECIFIC GRAVITY 1.012 (1.000-1.030); UROBILINOGEN NEG (NEG); ZZUR CULT IF INDIC CLEAN CATCH YES
[2017-06-08 20:35] LABS: ALT/SGPT 16 U/L (12-78); BLOOD UREA NITROGEN 21 mg/dl (7-18); BUN/CREATININE RATIO 26.6 (10-20); CALCIUM 9.6 mg/dl (8.5-10.1); CARBON DIOXIDE 32 mmol/L (21-32); CHLORIDE 104 mmol/L (98-107); GLUCOSE 102 mg/dl (70-99); MAGNESIUM 1.9 mg/dl (1.8-2.4); POTASSIUM 3.7 mmol/L (3.5-5.1); SODIUM 142 mmol/L (136-145)
[2017-06-08 20:37] LABS: MANUAL MICROSCOPIC REQUIRED? NO; REVIEW REQ? NO
[2017-06-08 20:46] LABS: ALB/GLOB RATIO 0.9 (0.9-2); ALKALINE PHOSPHATASE 112 U/L (45-117); AST/SGOT 16 U/L (15-37)
--- NOTE | 2017-06-08 20:46 | DIAGNOSTIC IMAGING REPORT ---
BILATERAL LOWER EXTREMITY VENOUS DOPPLER HISTORY: Acute bilateral lower extremity pain and swelling. swelling COMPARISON STUDY: None. FINDINGS: There is normal compressibility, flow, and augmentation within the bilateral lower extremity deep venous systems. IMPRESSION: No sonographic evidence of deep venous thrombosis within the right or left lower extremity. Electronically signed by: Jayden Cheng M.D. 06/08/2017 8:45 PM Dictated Date/Time: 06/08/2017 8:44 PM
[2017-06-08] MEDS ORDERED: CEPH500C PO (21:30)
[2017-06-08] MEDS ORDERED: DICY20TA10 PO (21:36)
[2017-06-08] MEDS ORDERED: IPRASOL4 INH (21:38)
[2017-06-08 21:58] VITALS: BP 139/99; PULSE 64; TEMP 36.4; O2SAT 94
== END 2017-06-08 21:59 | disposition home or self-care (01) ==
LOC: C.EDB 19:12
DX: R60.9 Edema, unspecified (principal); N39.0 Urinary tract infection, site not specified; L03.116 Cellulitis of left lower limb; J44.9 Chronic obstructive pulmonary disease, unspecified; Z99.81 Dependence on supplemental oxygen; N18.3 Chronic kidney disease, stage 3 (moderate); I12.9 Hypertensive chronic kidney disease with stage 1 through stage 4 chronic kidney disease, or unspecified chronic kidney disease; E78.5 Hyperlipidemia, unspecified; K21.9 Gastro-esophageal reflux disease without esophagitis; K58.9 Irritable bowel syndrome, unspecified; Z83.3 Family history of diabetes mellitus; Z82.49 Family history of ischemic heart disease and other diseases of the circulatory system; Z87.891 Personal history of nicotine dependence; Z79.899 Other long term (current) drug therapy

== ENCOUNTER 2017-06-20 12:59 | Emergency (ER) | payer OTHER ==
[~2017-06-20] VITALS: Ht 154.9 cm; Wt 95.1 kg
[~2017-06-20 12:59] MED LIST changes: -BIOT1TAB5 PO; +CAMPLOT10 TOP; +CEPH500C PO; -CLC100 PO; +DICY20TA10 PO; +IPRASOL4 INH; +LSX20 PO; -MRLP17 PO; -NRN100 PO; -OXYC-57 PO
[2017-06-20 13:07] VITALS: TEMP 36.7; Ht 154.9 cm; Wt 95.1 kg
[2017-06-20] MEDS ORDERED: TRMO2580 TOP (14:17)
[2017-06-20] MEDS ORDERED: HYDR-3124 PO (14:17)
--- NOTE | 2017-06-20 14:18 | EMERGENCY ROOM VISIT NOTE ---
ED Visit Note First contact with patient: 13:12 Pt seen and examined with the PA. Discussed the appearance of the rash, possible ddx, treatment of symptoms, she verbalized understanding. Doubt sjs/ ten, fungal, cellulitis, zoster, folliculitis. Discussed sx to watch/return for , she verbalized understanding and was agreeable with plan.
--- NOTE | 2017-06-20 14:18 | EMERGENCY ROOM VISIT NOTE ---
History First contact with patient: 13:12 Chief Complaint: RASH Stated Complaint: RASH ALL OVER History of Present Illness The patient is a 71 year old female who presents to the Emergency Room with complaints of a rash. The patient states that she first developed a rash 2 days ago. She states that it is located on her left leg, abdomen and bilateral wrists. She started taking Keflex approximately 12 days ago. She denies any other new medications, soaps, detergents, foods or other environmental exposures. She saw her primary care provider and was told to take Benadryl, which she has been doing without relief. She states the rash is very itchy. She denies any history of skin conditions. She denies fevers/chills. Review of Systems A complete 10 point review of systems was reviewed with the patient with pertinent positives and negatives as per history of present illness. All else were negative. Past Medical/Surgical History Medical Problems: (1) Acute pain of right lower extremity (2) CKD (chronic kidney disease) stage 3, GFR 30-59 ml/min (3) COPD, severe (4) Dyslipidemia (5) GERD (gastroesophageal reflux disease) (6) Hypertension (7) IBS (irritable bowel syndrome) Surgical Problems: (1) H/O esophagogastroduodenoscopy (2) History of bilateral breast reduction surgery (3) History of tonsillectomy and adenoidectomy (4) History of total hysterectomy (5) History of ureter stent Family History Diabetes mellitus FH: lung disease FHx: heart disease Hypertension Social History Smoking Status: Former Smoker Alcohol Use: none Drug Use: none Marital Status: Housing Status: lives with family Occupation Status: retired Current/Historical Medications Scheduled Atenolol (Tenormin), 25 MG PO DAILY Atorvastatin (Lipitor), 20 MG PO DAILY Camphor & Menthol (Sarna), 1 APPLN TOP PRN Cholecalciferol (Vitamin D3), 1 CAP PO DAILY Hydrochlorothiazide (Hydrochlorothiazide), 1 TAB PO DAILY Potassium Chloride Microencaps (Potassium Chloride Er), 10 MEQ PO DAILY Triamcinolone Acetonide (Topic (Triamcinolone Acet 0.025%), 1 APPLN TOP BID Scheduled PRN Acetaminophen (Tylenol), 500 MG PO UD PRN for h Albuterol Hfa (Ventolin Hfa), 2 PUFFS INH Q4 PRN for SOB/Wheezing Calcium Carbonate (Tums), 500 MG PO QID PRN for Heartburn Dicyclomine Hcl (Dicyclomine Hcl), 20 MG PO BID PRN for abd pain Furosemide (Furosemide), 20 MG PO DAILY PRN for EDEMA Hydroxyzine Hcl (Atarax), 25 MG PO TID PRN for Itching Ipratropium-Albuterol (Duoneb), 1 VIAL INH QID PRN for SOB/Wheezing Physical Exam Vital Signs Date Time Temp Pulse Resp B/P (MAP) Pulse Ox O2 Delivery O2 Flow Rate FiO2 06/20/17 14:24 88 20 154/86 91 06/20/17 13:07 36.7 68 18 152/89 90 Room Air Physical Exam VITALS: Vitals are noted on the nurse's note and reviewed by myself. Vital signs stable. GENERAL: This is a 71-year-old female, in no acute distress, nondiaphoretic, well-developed well-nourished. SKIN: There are erythematous raised plaques over the right medial thigh and left abdomen/trunk with evidence of excoriation. There are a few smaller erythematous lesions over bilateral wrists. HEENT: PERRLA. Mucous membranes moist. Neck is supple without nuchal rigidity. HEART: Regular rate and rhythm without murmurs gallops or rubs. LUNGS: Clear to auscultation bilaterally without wheezes, rales or rhonchi. NEURO: Patient was alert and oriented to person place and time. Medical Decision & Procedures Medical Decision Differential diagnosis includes allergic dermatitis, contact dermatitis, candidiasis, tinea infection, Lyme disease, scabies, Muniz-Dario syndrome, viral illness, ITP, HSP, psoriasis, atopic dermatitis, herpes zoster, cellulitis , among others. The patient was evaluated as above. She presents with a pruritic rash which is localized to the right thigh, left abdomen and wrists. This does not have the appearance of a drug reaction and I do not feel it is likely secondary to the Keflex use. The patient is not aware of any new environmental exposures. The rash is not consistent with a fundal infection or cellulitis. It may be a contact dermatitis due to an unknown exposure. There is significant excoriation and dryness of the skin. This may be secondary to an atopic dermatitis. The patient will be given a topical steroid. She was given a prescription for hydroxyzine to help with symptomatic relief. She was encouraged to use oatmeal baths and moisturize the areas. She will follow-up with her primary care provider for a recheck. She verbalized understanding of my assessment and treatment plan was discharged home in good condition. The patient was independently evaluated by Dr. Raya, ED attending physician , who agreed with my assessment and treatment plan. Medication Reconcilliation Current Medication List: was personally reviewed by me Blood Pressure Screening Patient's blood pressure: Elevated blood pressure Blood pressure disposition: Elevated BP felt to be situational Impression Primary Impression: Pruritic rash Departure Information Dispostion Home / Self-Care Condition GOOD Prescriptions Triamcinolone Acetonide (Topic (TRIAMCINOLONE ACET 0.025%) 0.025 % Oin 1 APPLN TOP BID, #30 GM Prov: Chyna Brownlee PA-C 06/20/17 Hydroxyzine Hcl (ATARAX) 25 Mg Tab 25 MG PO TID Y for Itching, #15 TAB Prov: Chyna Brownlee PA-C 06/20/17 Referrals No Doctor, Assigned (PCP) Patient Instructions My [facility] Additional Instructions Apply the ointment to the areas twice daily until symptoms have resolved. Take the hydroxyzine up to 3 times daily as needed for itching. This medication may make you slightly drowsy. You may take oatmeal baths as discussed. Follow-up with your primary care provider in one week for a recheck or if symptoms worsen. Return here for any blistering of the rash, fevers, or any other new/concerning symptoms.
[2017-06-20 14:24] VITALS: BP 154/86; PULSE 88; O2SAT 91
== END 2017-06-20 14:26 | disposition home or self-care (01) ==
LOC: C.EDB 13:00 → C.EDD 14:26
DX: R21 Rash and other nonspecific skin eruption (principal); N18.3 Chronic kidney disease, stage 3 (moderate); J44.9 Chronic obstructive pulmonary disease, unspecified; E78.5 Hyperlipidemia, unspecified; K21.9 Gastro-esophageal reflux disease without esophagitis; I10 Essential (primary) hypertension; K58.9 Irritable bowel syndrome, unspecified; Z83.3 Family history of diabetes mellitus; Z82.49 Family history of ischemic heart disease and other diseases of the circulatory system; Z87.891 Personal history of nicotine dependence

== ENCOUNTER → 2017-07-10 | Outpatient (CLI) | payer OTHER ==
[~2017-07-10] MED LIST changes: -CEPH500C PO
--- NOTE | 2017-07-10 10:53 | DIAGNOSTIC IMAGING REPORT ---
ULTRASOUND GUIDED FINE NEEDLE ASPIRATION OF LEFT LOBE THYROID NODULE CLINICAL HISTORY: LEFT THYROID NODULE COMPARISON STUDY: Thyroid ultrasound June 21, 2017. PROCEDURE: Sonography of the thyroid gland again demonstrated a heterogeneous echogenic nodule within the lower pole of the left thyroid lobe that measured 2.7 cm in greatest diameter. This was targeted for fine needle aspiration. The procedure, risks and benefits were discussed with the patient and informed written consent was obtained. The procedure was performed by Dr. Villatoro following a timeout. Skin was prepped and draped in sterile fashion and local anesthesia was achieved with 1% lidocaine. Under direct ultrasound guidance, 2 25-gauge fine needle aspirations were performed. Samples were deemed preliminarily adequate by pathology. The patient tolerated the procedure well and no immediate complications were evident. IMPRESSION: Ultrasound guided fine needle aspiration of 2.7 cm left lower pole thyroid nodule. Electronically signed by: João Villatoro M.D. 07/10/2017 10:51 AM Dictated Date/Time: 07/10/2017 10:50 AM
== END | disposition home or self-care (01) ==
LOC: C.ULTR 09:23
DX: E04.1 Nontoxic single thyroid nodule (principal)

== ENCOUNTER → 2017-07-26 | Outpatient (CLI) | payer OTHER ==
[~2017-07-26] MED LIST changes: +ANT25 PO; +ONDA4TAB10 SL; +PERFLUTREN LIPID MICROSPHERE (DEFINITY) IV ONE; +PLMINS NEB
--- NOTE | 2017-07-26 14:31 | DIAGNOSTIC IMAGING REPORT ---
PELVIC ULTRASOUND CLINICAL HISTORY: Edema. Evaluate for pelvic/ovarian mass. COMPARISON STUDY: CT of the abdomen and pelvis February 10, 2015. TECHNIQUE: Transabdominal sonography of the pelvis was performed. Agent deferred transverse and sagittal imaging. FINDINGS: The uterus is surgically absent. No free fluid was identified. No pelvic mass was identified although sensitivity is diminished given lack of transvaginal imaging. Neither ovary was visualized. IMPRESSION: 1. Nonvisualization of the ovaries. No pelvic mass identified although sensitivity diminished given lack of transvaginal imaging. 2. Status post hysterectomy. No pelvic abnormality by transabdominal ultrasound. Electronically signed by: João Villatoro M.D. 07/26/2017 2:30 PM Dictated Date/Time: 07/26/2017 2:26 PM
--- NOTE | 2017-07-26 16:11 | ECHOCARDIOGRAM REPORT ---
*NOTICE TO RECEIVING REPUBLICAN AGENCY This information is strictly Confidential and protected under [place] law. [place] law prohibits you from making any further disclosure of this information unless further disclosure is expressly permitted by the written consent of the person to whom it pertains or is authorized by law. A general authorization for the release of medical or other information is not sufficient for this purpose. Hospital accepts no responsibility if the information is made available to any other person, INCLUDING THE PATIENT. Interpretation Summary * Name: BENNIE GUTIÉRREZ Study Date: 07/26/2017 12:48 PM * Patient Location: [facility] HR: 68 * : 1945 (M/d/yyyy) Gender: Female Height: 61 in * Age: 71 yrs Ethnicity: CA Weight: 209 lb * Ordering Physician: Rock Alaniz * Referring Physician: Rock Alaniz. ALEYDA * Performed By: Joanna Boyer RDCS * * Reason For Study: Murmurs * BSA: 1.9 m2 * -- Conclusions -- * Left ventricular systolic function is normal. * No regional wall motion abnormalities noted. * Ejection Fraction = 55-60%. * There is mild concentric left ventricular hypertrophy. * Grade I diastolic dysfunction, (abnormal relaxation pattern). * No obvious valvular pathology. Procedure Details * A complete two-dimensional transthoracic echocardiogram was performed (2D, M-mode, Doppler and color flow Doppler). * A contrast injection of Definity was performed to improve assessment of LV function. * Contrast was injected into an intravenous site in the left arm. * One vial of Definity ultrasound contrast was diluted in normal saline to a total volume of 10 ml. A total of '2' ml of solution was administered during imaging. * Lot # [id number] of Definity utilized for procedure. * Expiration date JUL 24. * The attending nurse who injected the contrast agent was Annette Melgar RN. Left Ventricle * The left ventricle is normal in size. * There is mild concentric left ventricular hypertrophy. * Ejection Fraction = 55-60%. * Left ventricular systolic function is normal. * No regional wall motion abnormalities noted. Right Ventricle * The right ventricle is not well visualized. * The right ventricular systolic function is normal as assessed by tricuspid annular plane systolic excursion (TAPSE) (normal >1.5 cm). Atria * The left atrium is mildly dilated. * Right atrium not well visualized. * There is no evidence of atrial septal defect, but resolution does not allow assessment for a patent foramen ovale. Mitral Valve * The mitral valve is grossly normal. * There is no mitral valve stenosis. * Significant mitral regurgitation is absent. Tricuspid Valve * The tricuspid valve is not well visualized, but is grossly normal. * There is no tricuspid stenosis. * Significant tricuspid regurgitation is absent. Aortic Valve * The aortic valve is tricuspid. The leaflet thickness if normal. There is no aortic stenosis, and no significant insufficiency. * The aortic valve opens well. * No hemodynamically significant valvular aortic stenosis. * No aortic regurgitation is present. Pulmonic Valve * The pulmonic valve is not well visualized. Great Vessels * The aortic root is normal size. * The pulmonary is not well visualized. Pericardium/Pleural * There is no pericardial effusion. Great Vessels * Normal inferior vena cava size and collapsability with sniff indicates a normal right atrial pressure of 3 mmHg Left Ventricular Diastolic Function * Grade I diastolic dysfunction, (abnormal relaxation pattern). MMode 2D Measurements and Calculations IVSd 1.1 cm LVIDd 3.7 cm LVIDs 2.4 cm LVPWd 1.1 cm IVS/LVPW 0.94 FS 34.3 % EDV(Teich) 58.8 ml ESV(Teich) 21.1 ml EF(Teich) 64.1 % EDV(cubed) 51.4 ml ESV(cubed) 14.6 ml EF(cubed) 71.6 % LV mass(C)d 128.2 grams LV mass(C)dI 66.6 grams/m\S\2 SV(Teich) 37.7 ml SI(Teich) 19.6 ml/m\S\2 SV(cubed) 36.8 ml SI(cubed) 19.1 ml/m\S\2 Ao root diam 3.1 cm Ao root area 7.4 cm\S\2 ACS 2.0 cm LVOT diam 1.9 cm LVOT area 2.8 cm\S\2 LVAd ap4 26.2 cm\S\2 LVLd ap4 7.8 cm EDV(MOD-sp4) 73.1 ml EDV(sp4-el) 74.8 ml LVAs ap4 13.5 cm\S\2 LVLs ap4 6.1 cm ESV(MOD-sp4) 24.5 ml ESV(sp4-el) 25.3 ml EF(MOD-sp4) 66.6 % EF(sp4-el) 66.1 % LVAd ap2 24.3 cm\S\2 LVLd ap2 6.8 cm EDV(MOD-sp2) 69.8 ml EDV(sp2-el) 74.3 ml LVAs ap2 12.5 cm\S\2 LVLs ap2 5.5 cm ESV(MOD-sp2) 23.6 ml ESV(sp2-el) 24.4 ml EF(MOD-sp2) 66.1 % EF(sp2-el) 67.2 % LVLd %diff -15.10 % EDV(MOD-bp) 74.3 ml LVLs %diff -11.33 % ESV(MOD-bp) 25.0 ml EF(MOD-bp) 66.3 % SV(MOD-sp4) 48.7 ml SI(MOD-sp4) 25.3 ml/m\S\2 SV(MOD-sp2) 46.2 ml SI(MOD-sp2) 24.0 ml/m\S\2 SV(MOD-bp) 49.2 ml SI(MOD-bp) 25.6 ml/m\S\2 SV(sp4-el) 49.5 ml SI(sp4-el) 25.7 ml/m\S\2 SV(sp2-el) 49.9 ml SI(sp2-el) 25.9 ml/m\S\2 Doppler Measurements and Calculations MV E max rachel 73.1 cm/sec MV A max rachel 108.7 cm/sec MV E/A 0.67 MV dec time 0.34 sec Ao V2 max 170.0 cm/sec Ao max PG 11.6 mmHg Ao max PG (full) 3.9 mmHg RACHEL(V,A) 2.3 cm\S\2 RACHEL(V,D) 2.3 cm\S\2 LV V1 max PG 7.6 mmHg LV V1 max 137.9 cm/sec PA V2 max 126.0 cm/sec PA max PG 6.3 mmHg PA acc slope 640.6 cm/sec\S\2 PA acc time 0.14 sec PA pr(Accel) 16.5 mmHg
== END | disposition home or self-care (01) ==
LOC: C.ULTR 12:40
PROVIDERS: ATTEND Physician Assistant
DX: R60.9 Edema, unspecified (principal); R01.1 Cardiac murmur, unspecified; Z90.710 Acquired absence of both cervix and uterus

== ENCOUNTER 2017-11-17 05:29 | Inpatient (IN) | payer OTHER ==
[~2017-11-17] VITALS: Ht 154.9 cm; Wt 93.0 kg
[2017-11-17] VITALS (12 sets, daily range): BP systolic 100–146; BP diastolic 66–80; PULSE 86–133; TEMP 36.8–37.3; O2SAT 93–96; Ht 154.9 cm; Wt 93.0 kg
[~2017-11-17 05:29] MED LIST changes: -PERFLUTREN LIPID MICROSPHERE (DEFINITY) IV ONE
[2017-11-17] MEDS ORDERED: SODIUM CHLORIDE 0.9% 1000ML 1,000 ML IV STA (05:47)
[2017-11-17] MEDS ORDERED: ONDANSETRON INJ 2 MG/ML 2 ML VIAL IV STA (05:47)
[2017-11-17] MEDS ORDERED: ALBUT/IPRATROP 3MG/0.5MG NEB 3 ML VIAL INH STA (05:47)
[2017-11-17] MEDS ORDERED: METHYLPREDNISOLONE 125 MG VIAL IV STA (05:49)
--- NOTE | 2017-11-17 06:00 | EMERGENCY ROOM VISIT NOTE ---
History First contact with patient: 05:43 Chief Complaint: FLU LIKE SX Stated Complaint: DIZZY,NAUSEA History of Present Illness The patient is a 72 year old female who presents to the Emergency Room for evaluation of flu like illness. 4 days of gradually worsening symptoms. Notes this has exacerbated her COPD. To point where unable to ambulate without severe SHOB. Notes associated SHOB, weakness, runny nose, fatigue, headache, body aches, chills, nausea, vomiting, productive cough. Rest makes better, exertion makes worse. No rashes, no measured fevers, no neck stiffness. She has no trauma nor injuries. Denies chest pain, syncope, abdominal pain, urinary /bowel changes, leg swelling, nor other symptoms. Musinex taken without improvement. Daughter with symptoms similar that started a day earlier than her. Review of Systems See HPI for pertinent positives & negatives. A total of 10 systems reviewed and were otherwise negative. Past Medical/Surgical History Medical Problems: (1) Acute pain of right lower extremity (2) CKD (chronic kidney disease) stage 3, GFR 30-59 ml/min (3) COPD, severe (4) Dyslipidemia (5) GERD (gastroesophageal reflux disease) (6) Hypertension (7) IBS (irritable bowel syndrome) Surgical Problems: (1) H/O esophagogastroduodenoscopy (2) History of bilateral breast reduction surgery (3) History of tonsillectomy and adenoidectomy (4) History of total hysterectomy (5) History of ureter stent Family History Diabetes mellitus FH: lung disease FHx: heart disease Hypertension Social History Smoking Status: Former Smoker Alcohol Use: none Drug Use: none Marital Status: Housing Status: lives with family Occupation Status: retired Current/Historical Medications Scheduled Atenolol (Tenormin), 25 MG PO DAILY Atorvastatin (Lipitor), 20 MG PO DAILY Budesonide (Inhalation) (Pulmicort Respules 0.5MG/2ML), 1 UNIT NEB BID Cholecalciferol (Vitamin D3), 1 CAP PO DAILY Hydrochlorothiazide (Hydrochlorothiazide), 1 TAB PO DAILY Ondasetron Odt (Zofran Odt), 4 MG SL Q6H Potassium Chloride Microencaps (Potassium Chloride Er), 10 MEQ PO DAILY Scheduled PRN Albuterol Hfa (Ventolin Hfa), 2 PUFFS INH Q4 PRN for SOB/Wheezing Furosemide (Furosemide), 20-40 MG PO DAILY PRN for EDEMA Ipratropium-Albuterol (Duoneb), 1 VIAL INH QID PRN for SOB/Wheezing Meclizine HCl (Meclizine HCl), 1 TAB PO Q6 PRN for Dizziness or Vertigo Physical Exam Vital Signs Date Time Temp Pulse Resp B/P (MAP) Pulse Ox O2 Delivery O2 Flow Rate FiO2 11/17/17 07:31 97 22 120/65 91 Room Air 2.0 Nasal Cannula 11/17/17 07:26 95 18 93 Nasal Cannula 2.0 11/17/17 05:32 37.6 83 20 148/82 95 Room Air 2.0 Physical Exam GENERAL: Patient is unwell appearing and in moderate distress. Actively vomiting on arrival. HEENT: No acute trauma, normocephalic atraumatic, mucous membranes moist, +++ nasal congestion, no scleral icterus. NECK: No stridor, no adenopathy, no meningismus, trachea is midline. LUNGS: Moderate dyspnea with very tight lung sounds and diffuse wheezing. Equal bilaterally. HEART: Regular rate and rhythm. No murmurs, rubs, gallops appreciated. ABDOMEN: Soft, nontender, bowel sounds positive, no masses appreciated, no peritonitis. BACK: No midline tenderness, no CVA tenderness EXTREMITIES: Normal motion all extremities, no cyanosis, no edema. NEUROLOGIC: Alert and oriented, no acute motor or sensory deficits, no focal weakness, cranial nerves grossly intact. SKIN: No rash, no jaundice, no diaphoresis. Medical Decision & Procedures Laboratory Results Test 11/17/17 05:50 11/17/17 06:01 RDW Standard Deviation 51.5 fL (36.4-46.3) RDW Coefficient of Variation 14.5 % (11.5-14.5) White Blood Count 6.68 K/uL (4.8-10.8) Red Blood Count 4.76 M/uL (4.2-5.4) Hemoglobin 14.4 g/dL (12.0-16.0) Hematocrit 46.0 % (37-47) Mean Corpuscular Volume 96.6 fL (80-100) Mean Corpuscular Hemoglobin 30.3 pg (25-34) Mean Corpuscular Hemoglobin Concent 31.3 g/dl (32-36) Platelet Count 135 K/uL (130-400) Mean Platelet Volume 9.7 fL (7.4-10.4) Neutrophils (%) (Auto) 65.0 % Lymphocytes (%) (Auto) 14.2 % Monocytes (%) (Auto) 20.5 % Eosinophils (%) (Auto) 0.1 % Basophils (%) (Auto) 0.1 % Neutrophils # (Auto) 4.33 K/uL (1.4-6.5) Lymphocytes # (Auto) 0.95 K/uL (1.2-3.4) Monocytes # (Auto) 1.37 K/uL (0.11-0.59) Eosinophils # (Auto) 0.01 K/uL (0-0.5) Basophils # (Auto) 0.01 K/uL (0-0.2) Immature Granulocyte % (Auto) 0.1 % Immature Granulocyte # (Auto) 0.01 K/uL (0.00-0.02) Est Creatinine Clear Calc Drug Dose 70.3 ml/min Influenza Type A Antigen POS for Influ A (NEG) Influenza Type B Antigen Neg for Influ B (NEG) Medications Administered Medications (Trade) Dose Ordered Sig/Carlos Route Start Time Stop Time Status Last Admin Dose Admin Albuterol/ Ipratropium (Duoneb) 3 ml NOW STAT INH 11/17/17 05:47 11/17/17 05:49 DC 11/17/17 05:53 3 ML Ondansetron HCl (Zofran Inj) 4 mg NOW STAT IV 11/17/17 05:47 11/17/17 05:49 DC 11/17/17 05:53 4 MG Sodium Chloride 1,000 ml @ 999 mls/hr Q1H1M STAT IV 11/17/17 05:47 11/17/17 06:47 DC 11/17/17 05:53 999 MLS/HR Methylprednisolone Sodium Succinate (Solu-Medrol IV) 125 mg NOW STAT IV 11/17/17 05:49 11/17/17 05:50 DC 11/17/17 05:53 125 MG Acetaminophen (Tylenol Tab) 1,000 mg NOW STAT PO 11/17/17 06:17 11/17/17 06:18 DC 11/17/17 06:22 1,000 MG Albuterol/ Ipratropium (Duoneb) 12 ml ONE ONCE INH 11/17/17 07:00 11/17/17 07:01 DC 11/17/17 07:26 12 ML Oseltamivir Phosphate (Tamiflu Cap) 75 mg NOW STAT PO 11/17/17 07:08 11/17/17 07:09 DC 11/17/17 07:33 75 MG Levofloxacin (Levaquin / D5W) 500 mg NOW ONCE IV 11/17/17 07:15 11/17/17 07:16 DC 11/17/17 07:34 500 MG Medical Decision Differential: Infectious, Reactive Airway Disease, Pneumonia, Pneumothorax, COPD , CHF, ACS, Pulmonary Embolism, MSK, GI, Dissection, amongst other etiologies entertained. 72 yr old female with COPD on 2 L NC arrives with flu like illness. Very poor lung examination on arrival and essentially no improvement with initial duoneb and O2 sats trending down a bit. Started Hour neb after this. Labs unremarkable. EKG looks OK and CXR without infiltrate. No evidence this is ACS , CHF. I do not feel this is PE. No reason to suspect dissection. With how poor her lungs sound I feel hospitalist evaluation reasonable. No evidence of sepsis nor pneumonia thus will hold on blood cultures. Will treat with abx given her long COPD history and such a poor exam. Flu A positive consistent with findings and thus Tamiflu given. Blood Pressure Screening Patient's blood pressure: Elevated blood pressure (Will be monitored by hospitalist) Impression Primary Impression: COPD with acute exacerbation Additional Impression: Influenza A Departure Information Referrals No Doctor, Assigned (PCP) Patient Instructions My [facility] Problem Qualifiers
[2017-11-17] MEDS ORDERED: ACETAMINOPHEN 500 MG TAB PO STA (06:17)
[2017-11-17 06:25] LABS: BASO % 0.1 %; BASO ABS # 0.01 K/uL (0-0.2); EOS % 0.1 %; EOS ABS # 0.01 K/uL (0-0.5); HEMOGLOBIN 14.4 g/dL (12.0-16.0); IG# 0.01 K/uL (0.00-0.02); LYMPH % 14.2 %; LYMPH ABS # 0.95 K/uL (1.2-3.4); MEAN CELL VOLUME 96.6 fL (80-100); MEAN CORPUSCULAR HEMOGLOBIN 30.3 pg (25-34); MEAN CORPUSCULAR HGB CONC 31.3 g/dl (32-36); MEAN PLATELET VOLUME 9.7 fL (7.4-10.4); MONO % 20.5 %; MONO ABS # 1.37 K/uL (0.11-0.59); NEUT ABS # 4.33 K/uL (1.4-6.5); PLATELET COUNT 135 K/uL (130-400); RED CELL DISTRIBUTION WIDTH CV 14.5 % (11.5-14.5); RED CELL DISTRIBUTION WIDTH SD 51.5 fL (36.4-46.3); WHITE BLOOD COUNT 6.68 K/uL (4.8-10.8)
--- NOTE | 2017-11-17 06:25 | DIAGNOSTIC IMAGING REPORT ---
CHEST ONE VIEW PORTABLE CLINICAL HISTORY: SHOB dyspnea COMPARISON STUDY: 08/07/2017 FINDINGS: Mild cardia megaly. Lungs are clear. Diaphragms smooth. IMPRESSION: Mild cardia megaly. Otherwise negative study. The above report was generated using voice recognition software. It may contain grammatical, syntax or spelling errors. Electronically signed by: Corey Landaverde M.D. 11/17/2017 6:24 AM Dictated Date/Time: 11/17/2017 6:23 AM
[2017-11-17 06:42] LABS: BLOOD UREA NITROGEN 15 mg/dl (7-18); CALCIUM 9.1 mg/dl (8.5-10.1); CARBON DIOXIDE 28 mmol/L (21-32); CREATININE 0.73 mg/dl (0.60-1.20); GLUCOSE 108 mg/dl (70-99); POTASSIUM 3.7 mmol/L (3.5-5.1); SODIUM 136 mmol/L (136-145)
[2017-11-17] MEDS ORDERED: ALBUT/IPRATROP 3MG/0.5MG NEB 3 ML VIAL INH ONE (07:00)
[2017-11-17 07:03] LABS: INFLUENZA B ANTIGEN Neg for Influ B (NEG)
[2017-11-17] MEDS ORDERED: OSELTAMIVIR PHOSPHATE 75 MG CAP PO STA ×2 (07:08→07:11)
[2017-11-17] MEDS ORDERED: LEVAQUIN 500MG / 100ML D5W IV ONE (07:15)
[2017-11-17] MEDS ORDERED: ONDANSETRON 4MG OD TAB SL PRN (08:00)
[2017-11-17] MEDS ORDERED: ALBUTEROL HFA 8 GM INHALER INH PRN (08:00)
[2017-11-17] MEDS ORDERED: MECLIZINE HCL 25 MG TAB PO PRN (08:00)
--- NOTE | 2017-11-17 08:26 | History and Physical ---
History & Physical Date & Time of Service: Nov 17, 2017 at 08:16 Chief Complaint: Dizzy,Nausea Primary Care Physician: Yariel Cardoza M.D. History of Present Illness Source: patient, family 72 year old F with PMH significant for COPD, no longer smoking, on chronic steroids for 2 months, who presents to the ED after flu like symptoms for myalgia and shortness of breath, with increased home oxygen requirements and found to be Flu positive with likely COPD exacerbation with normal heart rate on admission but tachycardia subsequent to nebulizer treatments. Patient reports that flu like symptoms of myalgia, upper respiratory symptoms began on 11/14/17 and had to increase her home O2 use from nocturnal use only to through the day for 1 day prior to ED presentation. In the emergency department , patient is in the same emergency room as her daughter who is also being evaluated for flu. History as per patient and patient's daughter. While receiving nebulizer treatments, patient's heart rate as high as 135 but she denies chest pain or feeling palpitations. Patient is speaking in full sentences and comfortable Past Medical/Surgical History Medical Problems: (1) CKD (chronic kidney disease) stage 3, GFR 30-59 ml/min Status: Chronic (2) COPD, severe Status: Chronic (3) Dyslipidemia Status: Chronic (4) GERD (gastroesophageal reflux disease) Status: Chronic (5) Hypertension Status: Chronic (6) IBS (irritable bowel syndrome) Status: Chronic Surgical Problems: (1) H/O esophagogastroduodenoscopy Permanent Comment: repair zenkers diverticulum Status: Resolved (2) History of bilateral breast reduction surgery Status: Resolved (3) History of tonsillectomy and adenoidectomy Status: Resolved (4) History of total hysterectomy Status: Resolved (5) History of ureter stent Status: Resolved Family History Diabetes mellitus FH: lung disease FHx: heart disease Hypertension Social History Smoking Status: Former Smoker Drug Use: none Marital Status: Housing status: lives with significant other Occupational Status: retired Immunizations History of Tetanus Vaccine?: No History of Pneumococcal: No History of Hepatitis B Vaccine: No Multi-Drug Resistant Organisms History of MDRO: No Allergies Coded Allergies: Adhesives (Verified Allergy, Intermediate, RASH, 11/17/17) Ibuprofen (Verified Allergy, Intermediate, RASH, 11/17/17) Latex (Verified Allergy, Intermediate, RASH, 11/17/17) Naproxen (Verified Allergy, Intermediate, SWELLING, RASH, HIVES, 11/17/17) Iodinated Diagnostic Agents (Verified Allergy, Unknown, ., 11/17/17) Home Medications Scheduled Atenolol (Tenormin), 25 MG PO DAILY Atorvastatin (Lipitor), 20 MG PO DAILY Budesonide (Inhalation) (Pulmicort Respules 0.5MG/2ML), 1 UNIT NEB BID Cholecalciferol (Vitamin D3), 1 CAP PO DAILY Hydrochlorothiazide (Hydrochlorothiazide), 1 TAB PO DAILY Ondasetron Odt (Zofran Odt), 4 MG SL Q6H Potassium Chloride Microencaps (Potassium Chloride Er), 10 MEQ PO DAILY Scheduled PRN Albuterol Hfa (Ventolin Hfa), 2 PUFFS INH Q4 PRN for SOB/Wheezing Furosemide (Furosemide), 20-40 MG PO DAILY PRN for EDEMA Ipratropium-Albuterol (Duoneb), 1 VIAL INH QID PRN for SOB/Wheezing Meclizine HCl (Meclizine HCl), 1 TAB PO Q6 PRN for Dizziness or Vertigo Review of Systems Constitutional: No fever Eyes: No eye pain ENT: No hearing loss Respiratory: + cough, + shortness of breath Cardiovascular: No chest pain, No edema, No palpitations Abdomen: No pain, No nausea, No vomiting Musculoskeletal: + muscle pain (myalgia), No swelling Genitourinary - Female: No dysuria Psychiatric: No anxiety Endocrine: + fatigue Hematologic / Lymphatic: No abnormal bleeding/bruising Integumentary: No rash Physical Exam Vital Signs Date Time Temp Pulse Resp B/P (MAP) Pulse Ox O2 Delivery O2 Flow Rate FiO2 11/17/17 07:31 97 22 120/65 91 Room Air 2.0 Nasal Cannula 11/17/17 07:26 95 18 93 Nasal Cannula 2.0 11/17/17 05:32 37.6 83 20 148/82 95 Room Air 2.0 General Appearance: no apparent distress Head: atraumatic Eyes: normal inspection, EOMI, sclerae normal ENT: normal ENT inspection, hearing grossly normal Neck: supple, no JVD, trachea midline Respiratory/Chest: chest non-tender, lungs clear, normal breath sounds, no respiratory distress, no accessory muscle use Cardiovascular: no edema, no JVD, normal peripheral pulses, + tachycardia Abdomen/GI: normal bowel sounds, non tender, soft, no organomegaly, no pulsatile mass Back: normal inspection, no muscle spasm, normal range of motion Extremities/Musculoskelatal: normal inspection, no calf tenderness, normal capillary refill, no pedal edema, normal range of motion Neurologic/Psych: alert, normal mood/affect, oriented x 3 Skin: normal color, warm/dry, no rash Diagnostics Laboratory Results Results Past 24 Hours Test 11/17/17 05:50 11/17/17 06:01 Range/Units White Blood Count 6.68 4.8-10.8 K/uL Red Blood Count 4.76 4.2-5.4 M/uL Hemoglobin 14.4 12.0-16.0 g/dL Hematocrit 46.0 37-47 % Mean Corpuscular Volume 96.6 80-100 fL Mean Corpuscular Hemoglobin 30.3 25-34 pg Mean Corpuscular Hemoglobin Concent 31.3 32-36 g/dl Platelet Count 135 130-400 K/uL Mean Platelet Volume 9.7 7.4-10.4 fL Neutrophils (%) (Auto) 65.0 % Lymphocytes (%) (Auto) 14.2 % Monocytes (%) (Auto) 20.5 % Eosinophils (%) (Auto) 0.1 % Basophils (%) (Auto) 0.1 % Neutrophils # (Auto) 4.33 1.4-6.5 K/uL Lymphocytes # (Auto) 0.95 1.2-3.4 K/uL Monocytes # (Auto) 1.37 0.11-0.59 K/uL Eosinophils # (Auto) 0.01 0-0.5 K/uL Basophils # (Auto) 0.01 0-0.2 K/uL RDW Standard Deviation 51.5 36.4-46.3 fL RDW Coefficient of Variation 14.5 11.5-14.5 % Immature Granulocyte % (Auto) 0.1 % Immature Granulocyte # (Auto) 0.01 0.00-0.02 K/uL Sodium Level 136 136-145 mmol/L Potassium Level 3.7 3.5-5.1 mmol/L Chloride Level 101 98-107 mmol/L Carbon Dioxide Level 28 21-32 mmol/L Anion Gap 7.0 3-11 mmol/L Blood Urea Nitrogen 15 7-18 mg/dl Creatinine 0.73 0.60-1.20 mg/dl Est Creatinine Clear Calc Drug Dose 70.3 ml/min Estimated GFR () 94.0 Estimated GFR (Non- 81.1 BUN/Creatinine Ratio 20.3 10-20 Random Glucose 108 70-99 mg/dl Calcium Level 9.1 8.5-10.1 mg/dl Troponin I < 0.015 0-0.045 ng/ml Influenza Type A Antigen POS for Influ A NEG Influenza Type B Antigen Neg for Influ B NEG Diagnostic Radiology Mild cardiomegaly. Lungs are clear. Diaphragms smooth. EKG admission EKG at 6 AM was 86 bpm NSR Normal EKG Impression Assessment and Plan Influenza A positive Flu like symptoms since 11/14/17 - dyspnea and myalgia dyspnea was worse the day before admission when patient who is usually on nocturnal oxygen only needed to be on oxygen throughout the day Tamiflu ordered in the ED, Continue Tamiflu for 5 day course maintain droplet precautions History of COPD and exacerbation on Nocturnal oxygen at home typically dyspnea was worse the day before admission when patient who is usually on nocturnal oxygen only needed to be on oxygen throughout the day admission CXR: Mild cardia megaly. Lungs are clear Patient recieved Levofloxacin IV from the ED for COPD antibiotic coverage given generally clear CXR and known flu positive, COPD exacerbation unlikely from pulmonary infection but will continue antibiotic as azithromycin for now received 2 albuterol/ipratropium nebs in the ED on admission Heart on EKG was 86 bpm, after ED nebulizer treatments, Heart rate as high as 135 bpm, tachycardia likley induced by albuterol will continue nebulizer treatments of Xopenex/ipratropium treatments where the xopenex may cause less tachycardia than albuterol continue home inhalers patient reports following Dr. Soirano of [facility] and on BID steroids for 2 months given solumedrol 125 mg x 1 in the ED, will continue solumedrol as 40 mg IV q8 hours Admit to telemetry due to the tachycardia History of Pulmonary Hypertension History of Hypertensin: continue home dose atenolol and HCTZ Monitor electrolytes Allergies: avoid Aleve due to allergies for swelling , avoid ibuprofen DVT ppx: Lovenox 40 mg daily Code Status: Full Code Patient's family phone number [phone] Jad irizarry Level of Care Telemetry Resuscitation Status FULL RESUSCITATION VTE Prophylaxis VTE Risk Assessment Done? Y/N: Yes Risk Level: Moderate
[2017-11-17] MEDS ORDERED: LEVALBUTEROL/IPRATROPIUM NEB INH SCH (09:00)
[2017-11-17 10:29] LABS: INR 1.1 (0.9-1.1)
[2017-11-17] MEDS: AZITHROMYCIN 250 MG TAB PO SCH (10:51)
[2017-11-17] MEDS: ATORVASTATIN 20 MG TAB PO SCH (10:51)
[2017-11-17] MEDS: CHOLECALCIFEROL 1000 INTER.UNIT TAB PO SCH (10:51)
[2017-11-17] MEDS: HYDROCHLOROTHIAZIDE 25 MG TAB PO SCH (10:51)
[2017-11-17] MEDS: SODIUM CHLORIDE 0.9% 1000ML 1,000 ML IV SCH ×2 (12:22→22:30)
[2017-11-17] MEDS: METHYLPREDNISOLONE IV 40 MG in SYRINGE 0 ML IV SCH ×2 (12:23→19:34)
[2017-11-17] MEDS: LEVALBUTEROL 0.63MG/3 ML NEB INH SCH ×2 (14:26→20:20)
[2017-11-17] MEDS: IPRATROPIUM BROMIDE NEB SOLN 0.02% 2.5 ML VIAL INH SCH ×2 (14:26→20:20)
[2017-11-17] MEDS ORDERED: ACETAMINOPHEN 325 MG TAB PO PRN (18:15)
[2017-11-17] MEDS: OSELTAMIVIR PHOSPHATE 75 MG CAP PO SCH (19:35)
[2017-11-17] MEDS: BUDESONIDE 0.5 MG/2 ML VIAL (PULMICORT) INH SCH (20:21)
[2017-11-17] MEDS: ENOXAPARIN 40 MG/0.4 ML SYR SQ SCH (20:34)
[2017-11-18] VITALS (10 sets, daily range): BP systolic 113–133; BP diastolic 70–81; PULSE 46–90; TEMP 36.5–37; O2SAT 94–97
[2017-11-18] MEDS: IPRATROPIUM BROMIDE NEB SOLN 0.02% 2.5 ML VIAL INH SCH ×2 (02:34→07:46)
[2017-11-18] MEDS: LEVALBUTEROL 0.63MG/3 ML NEB INH SCH ×2 (02:34→07:46)
[2017-11-18] MEDS: METHYLPREDNISOLONE IV 40 MG in SYRINGE 0 ML IV SCH ×2 (04:08→11:53)
[2017-11-18 06:09] LABS: HEMATOCRIT 42.7 % (37-47); HEMOGLOBIN 13.4 g/dL (12.0-16.0); IG# 0.01 K/uL (0.00-0.02); LYMPH % 7.7 %; LYMPH ABS # 0.56 K/uL (1.2-3.4); MEAN CELL VOLUME 95.5 fL (80-100); MEAN CORPUSCULAR HGB CONC 31.4 g/dl (32-36); MEAN PLATELET VOLUME 9.8 fL (7.4-10.4); MONO % 9.4 %; MONO ABS # 0.68 K/uL (0.11-0.59); NEUT % 82.8 %; NEUT ABS # 6.02 K/uL (1.4-6.5); PLATELET COUNT 137 K/uL (130-400); RED CELL DISTRIBUTION WIDTH CV 14.1 % (11.5-14.5); RED CELL DISTRIBUTION WIDTH SD 49.6 fL (36.4-46.3); WHITE BLOOD COUNT 7.27 K/uL (4.8-10.8)
[2017-11-18 06:51] LABS: ALBUMIN 3.2 gm/dl (3.4-5.0); CALCIUM 8.9 mg/dl (8.5-10.1); CREATININE 0.8 mg/dl (0.60-1.20); POTASSIUM 3.7 mmol/L (3.5-5.1)
[2017-11-18 06:54] LABS: TOTAL PROTEIN 6.5 gm/dl (6.4-8.2)
--- NOTE | 2017-11-18 07:09 | DIAGNOSTIC IMAGING REPORT ---
BILATERAL LOWER EXTREMITY VENOUS DOPPLER HISTORY: Leg swelling. COMPARISON STUDY: None. FINDINGS: There is normal compressibility, flow, and augmentation within the bilateral lower extremity deep venous systems. IMPRESSION: No DVT within the right or left lower extremity. Electronically signed by: Nate Singleton M.D. 11/18/2017 7:08 AM Dictated Date/Time: 11/18/2017 7:07 AM
[2017-11-18] MEDS: BUDESONIDE 0.5 MG/2 ML VIAL (PULMICORT) INH SCH ×2 (07:46→20:01)
--- NOTE | 2017-11-18 08:58 | ECHOCARDIOGRAM REPORT ---
*NOTICE TO RECEIVING REPUBLICAN AGENCY This information is strictly Confidential and protected under [place] law. [place] law prohibits you from making any further disclosure of this information unless further disclosure is expressly permitted by the written consent of the person to whom it pertains or is authorized by law. A general authorization for the release of medical or other information is not sufficient for this purpose. Hospital accepts no responsibility if the information is made available to any other person, INCLUDING THE PATIENT. Interpretation Summary * Name: BENNIE GUTIÉRREZ Study Date: 11/17/2017 03:35 PM BP: 113/73 mmHg * Patient Location: [facility] HR: 96 * : 1945 (M/d/yyyy) Gender: Female Height: 61 in * Age: 72 yrs Ethnicity: CA Weight: 205 lb * Ordering Physician: Vik Castillo * Referring Physician: Self, Referred * Performed By: Joanna Boyer RDCS * * Reason For Study: Elevated troponin * BSA: 1.9 m2 * The study was technically difficult. * -- Conclusions -- * The left ventricle is hyperdynamic. * Ejection Fraction = >70 %. * Pulse wave TDI of the anterior and posterior mitral annulas demonstrates abnormal LV relaxation * No significant valvular disease on limited imaging. Procedure Details * A complete two-dimensional transthoracic echocardiogram was performed (2D, M-mode, Doppler and color flow Doppler). * The study was technically limited. * The study was technically difficult. * There were technical limitations due to patient'sbody habitus * A contrast injection of Definity was performed to improve assessment of LV function. * Contrast was injected into an intravenous site in the right arm. * One vial of Definity ultrasound contrast was diluted in normal saline to a total volume of 10 ml. A total of '3' ml of solution was administered during imaging. * Lot # [id number] of Definity utilized for procedure. * Expiration date 1 NOV 25. * The attending nurse who injected the contrast agent was Elder Neely RN. Left Ventricle * The left ventricle is normal in size. * There is no thrombus. * There is normal left ventricular wall thickness. * Ejection Fraction = >70 %. * The left ventricle is hyperdynamic. * The left ventricular wall motion is normal. Right Ventricle * The right ventricle is normal size. * The right ventricular systolic function is normal as assessed by tricuspid annular plane systolic excursion (TAPSE) (normal >1.5 cm). Atria * The left atrial size is normal. * Right atrial size is normal. * There is no evidence of atrial septal defect, but resolution does not allow assessment for a patent foramen ovale. Mitral Valve * The mitral valve is not well visualized. * There is no mitral valve stenosis. * Significant mitral regurgitation is absent. Tricuspid Valve * The tricuspid valve is not well visualized. * There is no tricuspid stenosis. * Significant tricuspid regurgitation is absent. Aortic Valve * The aortic valve is not well visualized. * Aortic stenosis is absent. * There is no significant aortic regurgitation. Pulmonic Valve * The pulmonary valve is not well seen, but the Doppler examination is normal without significant regurgitation or stenosis. Great Vessels * The aortic root is normal size. Pericardium/Pleural * There is no pericardial effusion. Great Vessels * Normal inferior vena cava diameter and respiratory variation suggests normal central venous pressure. Left Ventricular Diastolic Function * Pulse wave TDI of the anterior and posterior mitral annulas demonstrates abnormal LV relaxation MMode 2D Measurements and Calculations Ao root diam 2.9 cm Ao root area 6.5 cm\S\2 ACS 1.8 cm asc Aorta Diam 2.8 cm LVAd ap4 30.0 cm\S\2 LVLd ap4 7.5 cm EDV(MOD-sp4) 97.3 ml EDV(sp4-el) 101.6 ml LVAs ap4 15.7 cm\S\2 LVLs ap4 5.9 cm ESV(MOD-sp4) 32.8 ml ESV(sp4-el) 35.5 ml EF(MOD-sp4) 66.3 % EF(sp4-el) 65.0 % LVAd ap2 29.3 cm\S\2 LVLd ap2 7.4 cm EDV(MOD-sp2) 92.2 ml EDV(sp2-el) 97.8 ml LVAs ap2 14.6 cm\S\2 LVLs ap2 5.7 cm ESV(MOD-sp2) 30.4 ml ESV(sp2-el) 31.4 ml EF(MOD-sp2) 67.0 % EF(sp2-el) 67.9 % LVLd %diff -1.04 % EDV(MOD-bp) 94.5 ml LVLs %diff -3.49 % ESV(MOD-bp) 32.6 ml EF(MOD-bp) 65.5 % SV(MOD-sp4) 64.5 ml SI(MOD-sp4) 33.8 ml/m\S\2 SV(MOD-sp2) 61.8 ml SI(MOD-sp2) 32.4 ml/m\S\2 SV(MOD-bp) 61.9 ml SI(MOD-bp) 32.4 ml/m\S\2 SV(sp4-el) 66.1 ml SI(sp4-el) 34.6 ml/m\S\2 SV(sp2-el) 66.4 ml SI(sp2-el) 34.8 ml/m\S\2 Doppler Measurements and Calculations MV E max rachel 91.0 cm/sec MV A max rachel 145.9 cm/sec MV E/A 0.62 Ao V2 max 187.3 cm/sec Ao max PG 14.0 mmHg Ao max PG (full) 7.6 mmHg LV V1 max PG 6.5 mmHg LV V1 max 127.3 cm/sec TR max rachel 129.0 cm/sec
[2017-11-18] MEDS: HYDROCHLOROTHIAZIDE 25 MG TAB PO SCH (09:11)
[2017-11-18] MEDS: OSELTAMIVIR PHOSPHATE 75 MG CAP PO SCH ×2 (09:11→21:17)
[2017-11-18] MEDS: CHOLECALCIFEROL 1000 INTER.UNIT TAB PO SCH (09:11)
[2017-11-18] MEDS: ATORVASTATIN 20 MG TAB PO SCH (09:12)
[2017-11-18] MEDS: AZITHROMYCIN 250 MG TAB PO SCH (09:12)
[2017-11-18] MEDS ORDERED: NURSING VERBAL MED ORDER ONE (10:30)
--- NOTE | 2017-11-18 11:10 | Cardiology Consultation ---
Cardiology Consultation Date of Consultation: Nov 18, 2017 (Rose Jameson PA-C) History of Present Illness Patient is a 72 year old female with no known prior cardiovascular history, presenting to ER yesterday with concerns regarding worsening dyspnea on exertion , increased supplemental O2 demand, chest tightness with coughing, and myalgias. She tested positive for Flu A. Also being treated for COPD exacerbation. She received Albuterol neb treatments in the ER, resulting in sinus tachycardia around 130 bpm, resolving spontaneously. Initial cardiac enzymes negative. Repeat minimally elevated at 0.2, 0.3, 0.2 respectively. No acute EKG changes. Cardiology consulted for evaluation of elevated cardiac enzymes. she had echocardiogram completed this AM which demonstrated normal VL function, without significant valvular disease. Upon review of outpatient records, she underwent dobutamine stress echo in 2016 which was negative for inducible ischemia. She denies history of NE, CHF, arrhythmias. She believes she was told she had a heart murmur many years ago. Upon time of consult this morning, patient continues to note dyspnea with minimal exertion, along with productive cough and wheezing. She notes chest tightness with coughing. No dizziness. no palpitations. No orthopnea, PND or edema. She notes generalized weakness and myalgias. (Rose Jameson PA-C) Past Medical/Surgical History Problem List: Medical Problems: (1) pain of right lower extremity (2) CKD (chronic kidney disease) stage 3, GFR 30-59 ml/min (3) COPD, severe (4) Dyslipidemia (5) GERD (gastroesophageal reflux disease) (6) Hypertension (7) IBS (irritable bowel syndrome) Surgical Problems: (1) H/O esophagogastroduodenoscopy (2) History of bilateral breast reduction surgery (3) History of tonsillectomy and adenoidectomy (4) History of total hysterectomy (5) History of ureter stent (Rose Jameson PA-C) Family History Diabetes mellitus FH: lung disease FHx: heart disease Hypertension (Rose Jameson PA-C) Diabetes mellitus FH: lung disease FHx: heart disease Hypertension (Kolton Garcia DO) Social History Smoking Status: Unknown if Ever Smoked Drug Use: none Marital Status: Housing Status: lives with significant other Occupation: retired (Rose Jameson PA-C) Review Of Systems SEE HPI for pertinent positives. All other 10 point review of systems is negative. (Rose Jameson PA-C) Allergies Coded Allergies: Adhesives (Verified Allergy, Intermediate, RASH, 11/17/17) Ibuprofen (Verified Allergy, Intermediate, RASH, 11/17/17) Latex (Verified Allergy, Intermediate, RASH, 11/17/17) Naproxen (Verified Allergy, Intermediate, SWELLING, RASH, HIVES, 11/17/17) Iodinated Diagnostic Agents (Verified Allergy, Unknown, ., 11/17/17) Medications Reported Home Medications Medications Dose Route/Sig Max Daily Dose Days Date Category Meclizine HCl 25 Mg Tab 1 Tab PO Q6 PRN 08/07/17 Rx Zofran Odt (Ondansetron HCl) 4 Mg Tab 4 Mg SL Q6H 08/07/17 Rx Pulmicort Respules 0.5MG/2ML (Budesonide (Inhalation)) 0.5 Mg/2 Ml Grace 1 Unit NEB BID 08/07/17 Reported Furosemide 20 Mg Tab 20-40 Mg PO DAILY PRN 06/08/17 Reported Potassium Chloride Er (Potassium Chloride Microencaps) 10 Meq Tab 10 Meq PO DAILY 30 02/09/17 Reported Ventolin Hfa (Albuterol) 200 Puffs/48360 Mcg Aers 2 Puffs INH Q4 PRN 02/09/17 Reported Duoneb (Ipratropium-Albuterol) 3 Ml Nebu 1 Vial INH QID PRN 06/03/16 Reported Lipitor (Atorvastatin Calcium) 20 Mg Tab 20 Mg PO DAILY 02/11/16 Reported Hydrochlorothiazide 25 Mg Tab 1 Tab PO DAILY 01/19/15 Reported Tenormin (Atenolol) 50 Mg Tab 25 Mg PO DAILY 01/19/15 Reported Vitamin D3 (Cholecalciferol) 1,000 Unit Cap 1 Cap PO DAILY 01/19/15 Reported (Rose Jameson PA-C) Physical Exam Vital Signs (Last 8hrs): Last 8 Hrs Date Time Temp Pulse Resp B/P (MAP) Pulse Ox O2 Delivery O2 Flow Rate FiO2 11/18/17 09:09 36.7 90 18 113/70 (84) 96 Nasal Cannula 2.0 11/18/17 07:46 58 16 94 Nasal Cannula 2.0 11/18/17 04:00 Nasal Cannula 2.0 11/18/17 03:35 36.7 76 16 132/81 (98) 95 11/18/17 02:34 56 18 96 Nasal Cannula 2.0 General Appearance: Alert and Oriented x3. NAD. Head: Normocephalic Atraumatic. Eyes: PERRLA, EOMI, conjunctiva and sclera clear Neck: Supple. No carotid bruits noted. No JVD. No HJD. Respiratory: Breath sounds clear to auscultation bilaterally. No w/r/r. Cardiovascular: Reg rate and rhythm. S1 and S2 noted. No murmurs, rubs, gallops. PMI non displace. Abdomen: Normal bowel sounds, soft nontender. no abdominal bruits. Extremities: No edema, no clubbing or cyanosis. distal pulses 2/4 bilaterally. Neuro: No focal deficits. Psychiatric: Normal affect. (Rose Jameson, ALEYDA) Data Last 24 Hours Test 11/17/17 10:05 11/17/17 13:12 11/17/17 19:26 11/18/17 05:30 Prothrombin Time 11.4 SECONDS Prothromb Time International Ratio 1.1 Troponin I 0.184 ng/ml 0.303 ng/ml 0.270 ng/ml Procalcitonin < 0.05 ng/ml White Blood Count 7.27 K/uL Red Blood Count 4.47 M/uL Hemoglobin 13.4 g/dL Hematocrit 42.7 % Mean Corpuscular Volume 95.5 fL Mean Corpuscular Hemoglobin 30.0 pg Mean Corpuscular Hemoglobin Concent 31.4 g/dl Platelet Count 137 K/uL Mean Platelet Volume 9.8 fL Neutrophils (%) (Auto) 82.8 % Lymphocytes (%) (Auto) 7.7 % Monocytes (%) (Auto) 9.4 % Eosinophils (%) (Auto) 0.0 % Basophils (%) (Auto) 0.0 % Neutrophils # (Auto) 6.02 K/uL Lymphocytes # (Auto) 0.56 K/uL Monocytes # (Auto) 0.68 K/uL Eosinophils # (Auto) 0.00 K/uL Basophils # (Auto) 0.00 K/uL RDW Standard Deviation 49.6 fL RDW Coefficient of Variation 14.1 % Immature Granulocyte % (Auto) 0.1 % Immature Granulocyte # (Auto) 0.01 K/uL Sodium Level 140 mmol/L Potassium Level 3.7 mmol/L Chloride Level 104 mmol/L Carbon Dioxide Level 29 mmol/L Anion Gap 7.0 mmol/L Blood Urea Nitrogen 20 mg/dl Creatinine 0.80 mg/dl Est Creatinine Clear Calc Drug Dose 64.1 ml/min Estimated GFR () 84.2 Estimated GFR (Non- 72.6 BUN/Creatinine Ratio 24.4 Random Glucose 148 mg/dl Calcium Level 8.9 mg/dl Magnesium Level 2.3 mg/dl Total Bilirubin 0.3 mg/dl Aspartate Amino Transf (AST/SGOT) 23 U/L Alanine Aminotransferase (ALT/SGPT) 25 U/L Alkaline Phosphatase 83 U/L Total Protein 6.5 gm/dl Albumin 3.2 gm/dl Globulin 3.3 gm/dl Albumin/Globulin Ratio 1.0 Imaging: Echo completed this AM: * The study was technically difficult. * -- Conclusions -- * The left ventricle is hyperdynamic. * Ejection Fraction = >70 %. * Pulse wave TDI of the anterior and posterior mitral annulas demonstrates abnormal LV relaxation * No significant valvular disease on limited imaging. Chest xray on admission: No acute process EKG: On admission: Normal sinus rhythm Normal ECG When compared with ECG of 07-AUG-2017 20:12, No significant change was found Repeat EKG morning of 11/18: Normal sinus rhythm Normal ECG When compared with ECG of 17-NOV-2017 06:07, No significant change was found Telemetry reviewed: NSR, sinus tachycardia. No sustained arrhythmias. occ PVC Prior Data: Dobutamine Stress Echo report reviewed dated 04/2017: Interpretation Summary The examination is adequate to evaluate the referral indication. The left ventricular cavity size is normal. The left ventricular wall motion is normal. The LV wall thickness is mildly increased (concentric). The qualitative LV ejection fraction is 5559% (normal). The stress test was terminated at the completion of the protocol. No symptoms were noted. The stress EKG response showed no evidence of ischemia. The dobutamine stress echocardiographic examination is normal without resting left ventricular wall motion abnormalities or inducible ischemia. (Rose Jameson, PAKarrieC) Assessment & Plan 72 year old female 1. Chest tightness, associated with coughing, secondary to acute COPD exacerbation and +Flu 2. Minimally elevated troponin, not indicative of ACS, likely cardiac strain from sinus tachycardia (after nebs) and acute illness 3. Normal LV function without wall motion abnormalities on echo this AM 4. Negative dobutamine stress echo < 1 year ago 04/2017 PLAN: Recommend treatment for flu A and COPD exacerbation. Change to Xopenex for neb treatments, less likely to cause sinus tachycardia. Echo is unremarkable. No further cardiac testing is necessary at this time. Case discussed with Dr. Garcia. (Rose Jameson, PA-C) Cardiology Attending Physician: Patient seen and examined at the bedside. Complains of headache, myalgia, cough , and chest tightness associated with cough. Minimally elevated troponin noted on admission. No ischemic EKG changes. Echocardiogram the right hyperdynamic left ventricular function without regional wall motion abnormality. No dysrhythmias on telemetry. Currently patient sitting upright in chair bedside. She appears comfortable. Notes mild headache. Denies any exertional chest pain or unusual shortness of breath over the past 3-4 months. She underwent debridement stress echocardiography April 2017 which is negative for inducible ischemia. Offers no other complaints this time. PE: VSS. Gen: NAD, obese. Heart: Reg, Normal S1S2. No murmur. Lungs: Clear, no rales, rhonchi, wheeze. Abdomen soft, nontender, no distention. Extremities: No edema. A/P: Agree with above PAAc history, physical exam, assessment and plan. Recommend supportive care and treatment of acute influenza. Continue current cardiovascular medications including atenolol and statin therapy. Add low-dose aspirin 81 mg daily. Discussed prior reaction to Naprosyn. Patient developed itching and swelling. She has taken aspirin in the past without side effects. No further inpatient cardiac testing at this time. Thank you for allow me to participate in the care of your patient. Raghavendra Garcia DO, [facility] (Kolton Garcia DO)
[2017-11-18] MEDS: POLYETHYLENE (MIRALAX) 17 GM PACK PO PRN (11:53)
[2017-11-18] MEDS ORDERED: IPRATROPIUM BROMIDE NEB SOLN 0.02% 2.5 ML VIAL INH PRN (15:00)
[2017-11-18] MEDS ORDERED: LEVALBUTEROL 0.63MG/3 ML NEB INH PRN (15:00)
[2017-11-18] MEDS ORDERED: ASPIRIN 81 MG CHEW PO ONE (15:02)
--- NOTE | 2017-11-18 18:37 | Progress Note ---
Progress Note Date of Service Nov 18, 2017. Progress Note Subjective: Patient sitting in chair. Denies chest pain. Is on oxygen nasal cannula. Encouraged to ambulate General Appearance: no apparent distress Head: atraumatic Eyes: normal inspection, EOMI, sclerae normal ENT: normal ENT inspection, hearing grossly normal Neck: supple, no JVD, trachea midline Respiratory/Chest: chest non-tender, lungs clear, normal breath sounds, no respiratory distress, no accessory muscle use Cardiovascular: no edema, no JVD, normal peripheral pulses Abdomen/GI: normal bowel sounds, non tender, soft, no organomegaly, no pulsatile mass Back: normal inspection, no muscle spasm, normal range of motion Extremities/Musculoskelatal: normal inspection, no calf tenderness, normal capillary refill, no pedal edema, normal range of motion Neurologic/Psych: alert, normal mood/affect, oriented x 3 Skin: normal color, warm/dry, no rash Influenza A positive Flu like symptoms since 11/14/17 - dyspnea and myalgia usually on nocturnal oxygen only at home Tamiflu ordered in the ED on 11/18/17, Continue Tamiflu for 5 day course maintain droplet precautions History of COPD and exacerbation patient reports following Dr. Soriano of [facility] and on BID steroids for 2 months on Nocturnal oxygen at home typically dyspnea was worse the day before admission when patient who is usually on nocturnal oxygen only needed to be on oxygen throughout the day admission CXR: Mild cardia megaly. Lungs are clear Patient received Levofloxacin IV from the ED for COPD antibiotic coverage given generally clear CXR and known flu positive, COPD exacerbation unlikely from pulmonary infection but will continue antibiotic as azithromycin for now received 2 albuterol/ipratropium nebs in the ED continue Xopenx to prevent albuterol induced tachycardia transition from solumedrol on 11/18/17 to prednisone Elevated troponins after albuterol, tachycardia resolved, troponins downtrending Echo is unremarkable. No further cardiac testing is necessary at this time as per cardiology service transferred off telemetry unit on 11/18/17 History of Pulmonary Hypertension History of Hypertension: continue home dose atenolol and HCTZ Monitor electrolytes Allergies: avoid Aleve due to allergies for swelling , avoid ibuprofen DVT ppx: Lovenox 40 mg daily Code Status: Full Code Patient's family phone number [phone] Jad irizarry
[2017-11-18] MEDS ORDERED: LEVALBUTEROL 1.25MG/0.5ML NEB INH SCH (20:00)
[2017-11-18] MEDS ORDERED: IPRATROPIUM BROMIDE NEB SOLN 0.02% 2.5 ML VIAL INH SCH (20:00)
[2017-11-18] MEDS: ENOXAPARIN 40 MG/0.4 ML SYR SQ SCH (21:17)
[2017-11-19] VITALS (9 sets, daily range): BP systolic 126–152; BP diastolic 78–88; PULSE 44–68; TEMP 36.5–36.8; O2SAT 86–98
[2017-11-19] MEDS: BUDESONIDE 0.5 MG/2 ML VIAL (PULMICORT) INH SCH ×2 (07:05→19:58)
[2017-11-19] MEDS: ASPIRIN 81 MG CHEW PO SCH (08:14)
[2017-11-19] MEDS: HYDROCHLOROTHIAZIDE 25 MG TAB PO SCH (08:15)
[2017-11-19] MEDS: ATORVASTATIN 20 MG TAB PO SCH (08:16)
[2017-11-19] MEDS: OSELTAMIVIR PHOSPHATE 75 MG CAP PO SCH ×2 (08:17→21:23)
[2017-11-19] MEDS: CHOLECALCIFEROL 1000 INTER.UNIT TAB PO SCH (08:19)
[2017-11-19] MEDS: AZITHROMYCIN 250 MG TAB PO SCH (08:20)
[2017-11-19] MEDS: POLYETHYLENE (MIRALAX) 17 GM PACK PO PRN (08:40)
--- NOTE | 2017-11-19 12:41 | Progress Note ---
Internal Med Progress Note Date of Service: Nov 19, 2017. Provider Documentation: SUBJECTIVE: Patient seen in medical celestin bed with nasal cannula. Reports that she took shower earlier without nasal cannula and feeling okay. However when asked to ambulate without oxygen, patient desaturated to 87% as per nursing reports and patient felt shortness of breath. OBJECTIVE: General Appearance: no apparent distress Head: atraumatic Eyes: normal inspection, EOMI, sclerae normal ENT: normal ENT inspection, hearing grossly normal Neck: supple, no JVD, trachea midline Respiratory/Chest: chest non-tender, lungs clear, normal breath sounds, no respiratory distress, no accessory muscle use, on nasal cannula Cardiovascular: no edema, no JVD, normal peripheral pulses Abdomen/GI: normal bowel sounds, non tender, soft Back: normal inspection, normal range of motion Extremities/Musculoskelatal: normal inspection, no calf tenderness Neurologic/Psych: alert, normal mood/affect, oriented x 3 ASSESSMENT & PLAN: Influenza A positive Flu like symptoms since 11/14/17 - dyspnea and myalgia usually on nocturnal oxygen only at home Tamiflu ordered in the ED on 11/18/17, Continue Tamiflu for 5 day course maintain droplet precautions History of COPD and exacerbation patient reports following Dr. Soriano of [facility] and on BID steroids for 2 months on Nocturnal oxygen at home typically dyspnea was worse the day before admission when patient who is usually on nocturnal oxygen only needed to be on oxygen throughout the day admission CXR: Mild cardia megaly. Lungs are clear Patient received Levofloxacin IV from the ED for COPD antibiotic coverage given generally clear CXR and known flu positive, COPD exacerbation unlikely from pulmonary infection but will continue antibiotic as azithromycin for now received 2 albuterol/ipratropium nebs in the ED continue Xopenx to prevent albuterol induced tachycardia transitioned from solumedrol on 11/18/17 to prednisone Patient ambulated on 11/19/17 and may require portable home oxygen for exertion if she continues to desaturate with walking Elevated troponins after albuterol, tachycardia resolved, troponins downtrended Echo is unremarkable. No further cardiac testing is necessary at this time as per cardiology service History of Pulmonary Hypertension but no documented elevated pressures on this admission's echocardiogram transferred off telemetry unit on 11/18/17 History of Hypertension: continue home dose atenolol and HCTZ Monitor electrolytes Allergies: avoid Aleve due to allergies for swelling , avoid ibuprofen DVT ppx: Lovenox 40 mg daily, No DVT on ultrasound on 11/17/17 Code Status: Full Code Patient's family phone number [phone] Jad irizarry Disposition: awaiting further respiratory improvements, encourage ambulation, possibly may need further evaluation or needs home oxygen prescribed if continues to have desaturation with ambulation and symptoms, continue treatments for flu and COPD for now as inpatient Vital Signs: Date Time Temp Pulse Resp B/P (MAP) Pulse Ox O2 Delivery O2 Flow Rate FiO2 11/19/17 12:19 64 16 98 Nasal Cannula 2.0 11/19/17 08:30 Nasal Cannula 2.0 11/19/17 07:48 36.5 44 20 137/88 (104) 95 Room Air 11/19/17 07:05 48 16 97 Nasal Cannula 5.0 11/19/17 01:14 36.5 66 20 152/87 (108) 97 2.0 11/19/17 00:05 Nasal Cannula 2.0 11/18/17 20:01 68 16 95 Nasal Cannula 2.0 11/18/17 15:37 37.0 46 18 120/73 (89) 97 Nasal Cannula 3.0 11/18/17 15:30 96 Nasal Cannula 2.0 11/18/17 15:20 36.5 61 24 96 2.0
[2017-11-19] MEDS: ENOXAPARIN 40 MG/0.4 ML SYR SQ SCH (21:22)
[2017-11-20 06:03] LABS: HEMATOCRIT 44.3 % (37-47); HEMOGLOBIN 13.7 g/dL (12.0-16.0); MEAN CELL VOLUME 97.4 fL (80-100); MEAN CORPUSCULAR HEMOGLOBIN 30.1 pg (25-34); MEAN CORPUSCULAR HGB CONC 30.9 g/dl (32-36); MEAN PLATELET VOLUME 9.8 fL (7.4-10.4); PLATELET COUNT 136 K/uL (130-400); RED CELL DISTRIBUTION WIDTH CV 14.3 % (11.5-14.5); RED CELL DISTRIBUTION WIDTH SD 50.8 fL (36.4-46.3); WHITE BLOOD COUNT 8.11 K/uL (4.8-10.8)
[2017-11-20 06:46] LABS: CREATININE 0.87 mg/dl (0.60-1.20)
[2017-11-20] MEDS: CHOLECALCIFEROL 1000 INTER.UNIT TAB PO SCH (07:30)
[2017-11-20] MEDS: ATORVASTATIN 20 MG TAB PO SCH (07:30)
[2017-11-20] MEDS: AZITHROMYCIN 250 MG TAB PO SCH (07:32)
[2017-11-20] MEDS: HYDROCHLOROTHIAZIDE 25 MG TAB PO SCH (07:33)
[2017-11-20] MEDS: OSELTAMIVIR PHOSPHATE 75 MG CAP PO SCH (07:34)
[2017-11-20 07:37] VITALS: PULSE 58; O2SAT 98
[2017-11-20] MEDS: ASPIRIN 81 MG CHEW PO SCH (07:46)
[2017-11-20 08:17] VITALS: BP 129/83; PULSE 60; O2SAT 98
[2017-11-20 08:24] VITALS: O2SAT 98
--- NOTE | 2017-11-20 09:52 | Clinical Documentation Query ---
CLINICAL DOCUMENTATION QUERY Dr. GAINES, In your clinical opinion is this patient being managed for: (x) demand ischemia in the setting of tachycardia and acute illness ( ) Not Agree ( ) Other explanation of clinical findings (Please Explain) ( ) Unable to determine (Please Define) ( ) Need to Discuss I am no longer patient's physician. Please refer to Dr. Beltrán The medical record reflects the following clinical findings, treatment, and risk factors. Clinical Indicators: 72 yo female presenting with influenza and COPD exacerbation. Post neb treatment, pt developed tachycardia (HR max 133). Initial trop <0.015 but post neb treatment, trops 0.184/0.303/0.270. Pt also reported increasing O2 need from nocturnal to continuous. Treatment: tele, cardiology consult, O2 support, serial CE, ECHO, add ASA Risk Factors: influenza, COPD exacerbation, tachycardia Please clarify and document your clinical opinion in the progress notes and discharge summary. Terms such as "probable", "suspected", "likely", "questionable", "possible", or "still to be ruled out" are acceptable. IF IN AGREEMENT, YOU MUST DOCUMENT ABOVE DIAGNOSTIC STATEMENT IN DAILY PROGRESS NOTES AND DISCHARGE SUMMARY. This document is not part of the patient's record. Thank You, Anahy Hewitt, SELENE [phone]
--- NOTE | 2017-11-20 11:47 | Clinical Documentation Query ---
CLINICAL DOCUMENTATION QUERY Dr. EATON, In your clinical opinion is this patient being managed for: ( X ) demand ischemia in the setting of tachycardia and acute illness ( ) Not Agree ( ) Other explanation of clinical findings (Please Explain) ( ) Unable to determine (Please Define) ( ) Need to Discuss The medical record reflects the following clinical findings, treatment, and risk factors. Clinical Indicators: 72 yo female presenting with influenza and COPD exacerbation. Post neb treatment, pt developed tachycardia (HR max 133). Initial trop <0.015 but post neb treatment, trops 0.184/0.303/0.270. Pt also reported increasing O2 need from nocturnal to continuous. Treatment: tele, cardiology consult, O2 support, serial CE, ECHO, add ASA Risk Factors: influenza, COPD exacerbation, tachycardia Please clarify and document your clinical opinion in the progress notes and discharge summary. Terms such as "probable", "suspected", "likely", "questionable", "possible", or "still to be ruled out" are acceptable. IF IN AGREEMENT, YOU MUST DOCUMENT ABOVE DIAGNOSTIC STATEMENT IN DAILY PROGRESS NOTES AND DISCHARGE SUMMARY. This document is not part of the patient's record. Thank You, Anahy Hewitt, SELENE [phone]
--- NOTE | 2017-11-20 14:14 | Progress Note ---
Subjective Date of Service: Nov 20, 2017. Subjective Pt evaluation today including: conversation w/ patient, physical exam, lab review, review of studies, review of inpatient medication list Saw/examined the patient in room 406 She is feeling better today ambulating well requiring O2 at baseline, drops in the mid 80s on room air No significant cough/wheezing/sob Problem List Medical Problems: (1) Cellulitis Status: Acute (2) Cholecystitis Status: Acute (3) COPD with acute exacerbation Status: Acute (4) Dizziness Status: Acute (5) Edema Status: Acute (6) Hypoxia Status: Acute (7) Influenza A Status: Acute (8) Left lower lobe pneumonia Status: Acute (9) Pedal edema Status: Acute (10) Pruritic rash Status: Acute (11) Right lumbar radiculopathy Status: Acute (12) UTI (urinary tract infection) Status: Acute Review of Systems Constitutional: No fever, No chills Respiratory: No cough, No sputum, No wheezing, No shortness of breath, No dyspnea on exertion, No dyspnea at rest, No hemoptysis Cardiac: No chest pain Medications Current Inpatient Medications Medications (Trade) Dose Ordered Sig/Carlos Route Start Time Stop Time Status Last Admin Dose Admin Enoxaparin Sodium (Lovenox Inj) 40 mg Q24H SQ 11/17/17 22:00 12/17/17 21:59 11/19/17 21:22 40 MG Albuterol (Ventolin Hfa Inhaler) 2 puffs Q4 PRN INH 11/17/17 08:00 12/17/17 07:59 Atenolol (Tenormin Tab) 25 mg DAILY PO 11/17/17 10:30 12/17/17 10:29 11/20/17 07:34 25 MG Atorvastatin Calcium (Lipitor Tab) 20 mg DAILY PO 11/17/17 10:30 12/17/17 10:29 11/20/17 07:30 20 MG Budesonide (Pulmicort Respules 0.5MG/ 2ML Neb Soln) 0.5 mg BID INH 11/17/17 20:00 12/17/17 19:59 11/19/17 19:58 0.5 MG Hydrochlorothiazide (Hydrochlorothiazide Tab) 25 mg DAILY PO 11/17/17 10:30 12/17/17 10:29 11/20/17 07:33 25 MG Meclizine HCl (Antivert Tab) 25 mg Q6 PRN PO 11/17/17 08:00 12/17/17 07:59 Ondansetron HCl (Zofran Odt) 4 mg Q6H PRN SL 11/17/17 08:00 12/17/17 07:59 Cholecalciferol (Vitamin D Tab) 1,000 inter.unit DAILY PO 11/17/17 10:30 12/17/17 10:29 11/20/17 07:30 1,000 INTER.UNIT Oseltamivir Phosphate (Tamiflu Cap) 75 mg BID PO 11/17/17 20:00 11/22/17 20:59 11/20/17 07:34 75 MG Azithromycin (Zithromax Tab) 250 mg QAM PO 11/17/17 10:30 11/24/17 10:29 11/20/17 07:32 250 MG Acetaminophen (Tylenol Tab) 650 mg Q4H PRN PO 11/17/17 18:15 12/17/17 18:14 11/17/17 19:56 650 MG Polyethylene (Miralax Powder Packet) 17 gm DAILY PRN PO 11/18/17 10:45 12/18/17 10:44 11/19/17 08:40 17 GM Prednisone (PredniSONE TAB) 40 mg DAILY PO 11/19/17 08:00 12/19/17 08:59 11/20/17 07:32 40 MG Ipratropium [place] (Atrovent 0.02% 0.5MG/2.5ML Neb) 0.5 mg Q6R PRN INH 11/18/17 15:00 12/17/17 14:59 11/19/17 12:19 0.5 MG Levalbuterol (Xopenex 0.63 Mg/ 3 Ml Neb) 0.63 mg Q6R PRN INH 11/18/17 15:00 12/17/17 14:59 11/19/17 12:19 0.63 MG Aspirin (Aspirin Chew) 81 mg DAILY PO 11/19/17 08:00 12/19/17 08:59 11/20/17 07:46 81 MG Objective Vital Signs Date Time Temp Pulse Resp B/P (MAP) Pulse Ox O2 Delivery O2 Flow Rate FiO2 11/20/17 08:24 98 Nasal Cannula 2.0 11/20/17 08:17 60 20 129/83 (98) 98 Nasal Cannula 2.0 11/20/17 08:00 Nasal Cannula 2.0 11/20/17 07:37 58 16 98 Nasal Cannula 2.0 11/20/17 01:10 Nasal Cannula 2.0 11/19/17 23:56 36.5 59 18 128/83 (98) 98 3.0 11/19/17 19:58 68 16 86 Room Air 11/19/17 17:02 36.7 55 18 126/78 (94) 95 Nasal Cannula 2.0 11/19/17 16:00 Nasal Cannula 2.0 11/19/17 16:00 94 Nasal Cannula 2.0 11/19/17 14:58 36.8 60 16 147/86 (106) 94 Nasal Cannula 2.0 60 Physical Exam General Appearance: no apparent distress Respiratory/Chest: lungs clear, normal breath sounds, no respiratory distress, no accessory muscle use Cardiovascular: regular rate, rhythm, no edema, no murmur Extremities: + swelling, + pertinent finding (+1 pitting edema b/l LE) Laboratory Results Last 24 Hours Test 11/20/17 05:24 White Blood Count 8.11 K/uL Red Blood Count 4.55 M/uL Hemoglobin 13.7 g/dL Hematocrit 44.3 % Mean Corpuscular Volume 97.4 fL Mean Corpuscular Hemoglobin 30.1 pg Mean Corpuscular Hemoglobin Concent 30.9 g/dl RDW Standard Deviation 50.8 fL RDW Coefficient of Variation 14.3 % Platelet Count 136 K/uL Mean Platelet Volume 9.8 fL Creatinine 0.87 mg/dl Est Creatinine Clear Calc Drug Dose 59.0 ml/min Estimated GFR () 76.1 Estimated GFR (Non- 65.6 Assessment and Plan 11/20 patient is doing better today Acute Hypoxic Respiratory Failure - will be requiring 2L of O2 at home in the short term Influenza A - will d/c on Tamiflu to complete a 5 day course Acute COPD exacerbation - will continue prednisone; 40mg for a total of five days; one more dose of Azithromycin Demand Ischemia - secondary to infection/hypoxia outpatient f/u with Dr. Cardoza on November 22 at 10:45AM Influenza A positive Flu like symptoms since 11/14/17 - dyspnea and myalgia usually on nocturnal oxygen only at home Tamiflu ordered in the ED on 11/18/17, Continue Tamiflu for 5 day course maintain droplet precautions History of COPD and exacerbation patient reports following Dr. Soriano of [facility] and on BID steroids for 2 months on Nocturnal oxygen at home typically dyspnea was worse the day before admission when patient who is usually on nocturnal oxygen only needed to be on oxygen throughout the day admission CXR: Mild cardia megaly. Lungs are clear Patient received Levofloxacin IV from the ED for COPD antibiotic coverage given generally clear CXR and known flu positive, COPD exacerbation unlikely from pulmonary infection but will continue antibiotic as azithromycin for now received 2 albuterol/ipratropium nebs in the ED continue Xopenx to prevent albuterol induced tachycardia transitioned from solumedrol on 11/18/17 to prednisone Patient ambulated on 11/19/17 and may require portable home oxygen for exertion if she continues to desaturate with walking Elevated troponins after albuterol, tachycardia resolved, troponins downtrended Echo is unremarkable. No further cardiac testing is necessary at this time as per cardiology service History of Pulmonary Hypertension but no documented elevated pressures on this admission's echocardiogram transferred off telemetry unit on 11/18/17 History of Hypertension: continue home dose atenolol and HCTZ Monitor electrolytes Allergies: avoid Aleve due to allergies for swelling , avoid ibuprofen DVT ppx: Lovenox 40 mg daily, No DVT on ultrasound on 11/17/17 Code Status: Full Code Patient's family phone number [phone] Jad is grandson Disposition: awaiting further respiratory improvements, encourage ambulation, possibly may need further evaluation or needs home oxygen prescribed if continues to have desaturation with ambulation and symptoms, continue treatments for flu and COPD for now as inpatient
[2017-11-20] MEDS ORDERED: AZIT-57 PO (14:16)
[2017-11-20] MEDS ORDERED: PRD20 PO ×2 (14:16→14:20)
[2017-11-20] MEDS ORDERED: ASPCH81 PO (14:16)
[2017-11-20] MEDS ORDERED: TMF75 PO (14:16)
--- NOTE | 2017-11-20 14:23 | Discharge Instructions ---
Discharge Instructions Date of Service Nov 20, 2017. Admission Reason for Admission: Copd W/Acute Exacerbation,Influenza A Discharge Discharge Diagnosis / Problem: Influenza (flu), COPD Discharge Goals Goal(s): Decrease discomfort, Improve function, Diagnostic testing, Therapeutic intervention Activity Recommendations Activity Limitations: resume your previous activity . Instructions / Follow-Up Instructions / Follow-Up Please follow-up with Dr. Cardoza on November 22 at 10:45AM * You will require oxygen during the day time. You should ambulate in the primary care's office and check to see if you can stop using oxygen during the day time * Continue nighttime oxygen use * You will be prescribed Tamiflu * On 11/20 - take one tablet at night * On 11/21 - take one tablet in the morning and one at night * On 11/22 - take one in the morning * You will be prescribed prednisone (steroid) - take two tablets on 11/21, take two tablets on 11/22 and two tablets on 11/23, then stop * You will be given Azithromycin (antibiotic) - take one tablet on the morning of 11/21 Current Hospital Diet Patient's current hospital diet: Regular Diet Discharge Diet Recommended Diet: Regular Diet Pending Studies Studies pending at discharge: no Medical Emergencies . Who to Call and When: Medical Emergencies: If at any time you feel your situation is an emergency, please call 911 immediately. . Non-Emergent Contact Non-Emergency issues call your: Primary Care Provider . . "Provider Documentation" section prepared by Daquan Beltrán. . VTE Core Measure Inpt VTE Proph given/why not?: Enoxaparin (Lovenox)SQ
--- NOTE | 2017-11-20 14:26 | Discharge Summary ---
Discharge Summary Date of Service Nov 20, 2017. Discharge Summary Admission Date: Nov 17, 2017 at 08:03 Discharge Date: Nov 20, 2017 Discharge Disposition: Home Principal Diagnosis: Influenza A Acute Hypoxic Respiratory Failure Acute COPD Exacerbation Elevated Troponin; Demand Ischemia Medication Reconciliation New Medications: Aspirin (Aspirin Low Strength) 81 Mg Chew 81 MG PO DAILY for 30 Days, #30 TABS 5 Refills Azithromycin (Azithromycin) 250 Mg Tab 250 MG PO QAM for 1 Day, #1 TAB Oseltamivir Phosphate (Tamiflu) 75 Mg Cap 75 MG PO BID for 2 Days, #4 CAP Prednisone (Prednisone) 20 Mg Tab 40 MG PO DAILY for 3 Days, #6 TAB Continued Medications: Albuterol Hfa (Ventolin Hfa) 200 Puffs/73422 Mcg Aers 2 PUFFS INH Q4 PRN for SOB/Wheezing, #1 INHALER Atenolol (Tenormin) 50 Mg Tab 25 MG PO DAILY Atorvastatin (Lipitor) 20 Mg Tab 20 MG PO DAILY, TAB Budesonide (Inhalation) (Pulmicort Respules 0.5MG/2ML) 0.5 Mg/2 Ml Grace 1 UNIT NEB BID Cholecalciferol (Vitamin D3) 1,000 Unit Cap 1 CAP PO DAILY Furosemide (Furosemide) 20 Mg Tab 20-40 MG PO DAILY PRN for EDEMA Hydrochlorothiazide (Hydrochlorothiazide) 25 Mg Tab 1 TAB PO DAILY Ipratropium-Albuterol (Duoneb) 3 Ml Nebu 1 VIAL INH QID PRN for SOB/Wheezing Meclizine HCl (Meclizine HCl) 25 Mg Tab 1 TAB PO Q6 PRN for Dizziness or Vertigo, #10 TAB Ondasetron Odt (Zofran Odt) 4 Mg Tab 4 MG SL Q6H for Nausea, #6 TAB Potassium Chloride Microencaps (Potassium Chloride Er) 10 Meq Tab 10 MEQ PO DAILY for 30 Days, #30 TAB 5 Refills Admission Information HPI (per Admitting provider): 72 year old F with PMH significant for COPD, no longer smoking, on chronic steroids for 2 months, who presents to the ED after flu like symptoms for myalgia and shortness of breath, with increased home oxygen requirements and found to be Flu positive with likely COPD exacerbation with normal heart rate on admission but tachycardia subsequent to nebulizer treatments. Patient reports that flu like symptoms of myalgia, upper respiratory symptoms began on 11/14/17 and had to increase her home O2 use from nocturnal use only to through the day for 1 day prior to ED presentation. In the emergency department , patient is in the same emergency room as her daughter who is also being evaluated for flu. History as per patient and patient's daughter. While receiving nebulizer treatments, patient's heart rate as high as 135 but she denies chest pain or feeling palpitations. Patient is speaking in full sentences and comfortable Physical Exam (per Admitting): General Appearance: no apparent distress Head: atraumatic Eyes: normal inspection, EOMI, sclerae normal ENT: normal ENT inspection, hearing grossly normal Neck: supple, no JVD, trachea midline Respiratory/Chest: chest non-tender, lungs clear, normal breath sounds, no respiratory distress, no accessory muscle use Cardiovascular: no edema, no JVD, normal peripheral pulses, + tachycardia Abdomen/GI: normal bowel sounds, non tender, soft, no organomegaly, no pulsatile mass Back: normal inspection, no muscle spasm, normal range of motion Extremities/Musculoskelatal: normal inspection, no calf tenderness, normal capillary refill, no pedal edema, normal range of motion Neurologic/Psych: alert, normal mood/affect, oriented x 3 Skin: normal color, warm/dry, no rash Hospital Course 11/20 patient is doing better today Acute Hypoxic Respiratory Failure - will be requiring 2L of O2 at home in the short term Influenza A - will d/c on Tamiflu to complete a 5 day course Acute COPD exacerbation - will continue prednisone; 40mg for a total of five days; one more dose of Azithromycin Demand Ischemia - secondary to infection/hypoxia outpatient f/u with Dr. Cardoza on November 22 at 10:45AM Influenza A positive Flu like symptoms since 11/14/17 - dyspnea and myalgia usually on nocturnal oxygen only at home Tamiflu ordered in the ED on 11/18/17, Continue Tamiflu for 5 day course maintain droplet precautions History of COPD and exacerbation patient reports [facility] and on BID steroids for 2 months on Nocturnal oxygen at home typically dyspnea was worse the day before admission when patient who is usually on nocturnal oxygen only needed to be on oxygen throughout the day admission CXR: Mild cardia megaly. Lungs are clear Patient received Levofloxacin IV from the ED for COPD antibiotic coverage given generally clear CXR and known flu positive, COPD exacerbation unlikely from pulmonary infection but will continue antibiotic as azithromycin for now received 2 albuterol/ipratropium nebs in the ED continue Xopenx to prevent albuterol induced tachycardia transitioned from solumedrol on 11/18/17 to prednisone Patient ambulated on 11/19/17 and may require portable home oxygen for exertion if she continues to desaturate with walking Elevated troponins after albuterol, tachycardia resolved, troponins downtrended Echo is unremarkable. No further cardiac testing is necessary at this time as per cardiology service History of Pulmonary Hypertension but no documented elevated pressures on this admission's echocardiogram transferred off telemetry unit on 11/18/17 History of Hypertension: continue home dose atenolol and HCTZ Monitor electrolytes Allergies: avoid Aleve due to allergies for swelling , avoid ibuprofen DVT ppx: Lovenox 40 mg daily, No DVT on ultrasound on 11/17/17 Code Status: Full Code Patient's family phone number [phone] Jad irizarry Disposition: awaiting further respiratory improvements, encourage ambulation, possibly may need further evaluation or needs home oxygen prescribed if continues to have desaturation with ambulation and symptoms, continue treatments for flu and COPD for now as inpatient Total time spent on discharge = 50 minutes This includes examination of the patient, discharge planning, medication reconciliation, and communication with other providers. Discharge Instructions Please follow-up with Dr. Cardoza on November 22 at 10:45AM * You will require oxygen during the day time. You should ambulate in the primary care's office and check to see if you can stop using oxygen during the day time * Continue nighttime oxygen use * You will be prescribed Tamiflu * On 11/20 - take one tablet at night * On 11/21 - take one tablet in the morning and one at night * On 11/22 - take one in the morning * You will be prescribed prednisone (steroid) - take two tablets on 11/21, take two tablets on 11/22 and two tablets on 11/23, then stop * You will be given Azithromycin (antibiotic) - take one tablet on the morning of 11/21
[2017-11-20 14:34] VITALS: BP 129/83; PULSE 60; TEMP 36.5; O2SAT 98
--- NOTE | 2017-11-25 08:15 | EDITING REQUIRED CODING QUERY ---
PRESENT ON ADMISSION QUERY To promote full compliance with coding requirements relating to pateint care, physician participation is requested in all cases of balling head tender uncertainty. Please assist us with the question(s) below: Please place an X within the parenthesis (x). The following diagnosis(es) listed in this patient's medical record require physician assistance to determine if they were present on admission (POA) or not. Please advise for each diagnosis whether it was present on admission, not present on admission, or if it was clinically undetermined. 1. Acute Hypoxic Respiratory Failure - documented on the 11/20 Progress Note and on Discharge Summary. ( X ) Present On Admission ( ) Not Present On Admission ( ) Clinically Undetermined Thank you Leigha Brian *Definition of the present on admission (POA)-Present on admission is defined as present at the time the order for inpatient admission occurs. Conditions that develop during an outpatient encounter prior to a written order for inpatient admission (including emergency department, observation, or outpatient surgery) are considered present on admission.
== END 2017-11-20 15:04 | disposition home or self-care (01) | DRG 193 ==
LOC: C.EDB 05:30 → C.4E 08:03 → ENRESERV 08:21 → CANBEDREQ 13:32 → ENRESERV 14:54 → C.2T 15:37 → ENRESERV 11-18 14:38 → C.4E 11-18 15:19
PROVIDERS: ADMIT Hospitalist; ATTEND Family Medicine
DX: J10.1 Influenza due to other identified influenza virus with other respiratory manifestations (principal); J96.01 Acute respiratory failure with hypoxia; J44.1 Chronic obstructive pulmonary disease with (acute) exacerbation; I24.8 Other forms of acute ischemic heart disease; R00.0 Tachycardia, unspecified; T48.6X5A Adverse effect of antiasthmatics, initial encounter; N18.3 Chronic kidney disease, stage 3 (moderate); I13.10 Hypertensive heart and chronic kidney disease without heart failure, with stage 1 through stage 4 chronic kidney disease, or unspecified chronic kidney disease; I27.20 Pulmonary hypertension, unspecified; E78.5 Hyperlipidemia, unspecified; Z51.81 Encounter for therapeutic drug level monitoring; Z79.899 Other long term (current) drug therapy; Z79.51 Long term (current) use of inhaled steroids; Z87.891 Personal history of nicotine dependence; Z83.3 Family history of diabetes mellitus; Z82.49 Family history of ischemic heart disease and other diseases of the circulatory system

== ENCOUNTER → 2017-12-09 | Outpatient (CLI) | payer OTHER ==
[~2017-12-09] MED LIST changes: -ACET-1256 PO; +ASPCH81 PO; +AZIT-57 PO; -CAMPLOT10 TOP; -DICY20TA10 PO; +PRD20 PO; +TMF75 PO; -TUMS PO
--- NOTE | 2017-12-10 15:16 | MAMMOGRAPHY REPORT ---
BILATERAL DIGITAL SCREENING MAMMOGRAM TOMOSYNTHESIS WITH CAD: 12/09/2017 CLINICAL HISTORY: Routine screening. Patient has no complaints. TECHNIQUE: Breast tomosynthesis in addition to standard 2D mammography was performed. Current study was also evaluated with a Computer Aided Detection (CAD) system. COMPARISON: Comparison is made to exams dated: 10/08/2016 mammogram, 10/06/2015 mammogram - [facility], 04/17/2013 mammogram, and 04/16/2012 mammogram - [facility]. BREAST COMPOSITION: There are scattered areas of fibroglandular density in both breasts. FINDINGS: There is a stable metallic biopsy marker clip in the 12:00 right breast and scattered benig n-appearing coarse/rim calcifications bilaterally. No suspicious mass, architectural distortion or c luster of suspicious microcalcifications is seen. IMPRESSION: ACR BI-RADS CATEGORY 1: NEGATIVE There is no mammographic evidence of malignancy. A 1 year screening mammogram is recommended. The pa tient will receive written notification of the results. Approximately 10% of breast cancers are not detected with mammography. A negative mammographic report should not delay biopsy if a clinically suggestive mass is present. Swati Manzo M.D. ay/:12/09/2017 15:24:11 Real Estate Paralegal: Krystal ROCHE(Hernandez)(Mara)([place]), [facility] letter sent: Normal 1/2 BI-RADS Code: ACR BI-RADS Category 1: Negative
== END | disposition home or self-care (01) ==
LOC: C.MAMM 13:39
PROVIDERS: ATTEND Student in an Organized Health Care Education/Training Program
DX: Z12.31 Encounter for screening mammogram for malignant neoplasm of breast (principal)

== ENCOUNTER 2017-12-22 10:11 | Emergency (ER) | payer OTHER ==
[2017-12-22 10:21] VITALS: TEMP 36.9
[2017-12-22] MEDS ORDERED: OXYCODONE/ACETAMINOPHEN 5-325 TAB PO ONE (10:45)
--- NOTE | 2017-12-22 10:52 | EMERGENCY ROOM VISIT NOTE ---
History Report prepared by Latrice: Kolton Balbuena Under the Supervision of: Dr. Jovan Cruz M.D. First contact with patient: 10:26 Chief Complaint: HIP PAIN Stated Complaint: HIP PAIN History of Present Illness The patient is a 72 year old female who presents to the Emergency Room with complaints of worsening bilateral leg pain that began 4 days ago. She states that the bilateral leg pain is not normal. Patient states she also has groin and hip pain. She adds it feels like "her hips are grinding together". She denies any recent falls or trauma to the area. She states that the pain is worsened only in her right leg with movement. She states the pain is relieved with compression stockings. She states that when she took off the compression stockings last night to shower, her leg pain returned. Patient adds that she gets nauseas with the pain but denies vomiting. She states that she has a history of similar symptoms. She adds that during the last time her pain was in her back and that the pain was due to her sciatica. Patient has a history of COPD and arthritis. She denies a history of hip replacements and diabetes. Patient adds that she was told she has an enlarged lymph node in her groin area that "was never pursued". Patient states that she takes a water pill as needed but denies a history of CHF. Patient adds that she is not on blood thinners. Patient states that she takes Tylenol for her pain. She denies fevers, chills, vomiting, cough, and congestion. Patient adds that she is allergic to contrast dye. Source of History: patient Onset: 4 days ago Position: leg (bilateral) Timing: worsening Modifying Factors (Worsening): movement Modifying Factors (Relieving): other (Compression stockings) Associated Symptoms: + nausea, No fevers, No chills, No cough, No vomiting Note: Patient denies congestion. Review of Systems See HPI for pertinent positives and negatives. A total of ten systems were reviewed and were otherwise negative. Past Medical & Surgical Medical Problems: (1) Acute pain of right lower extremity (2) CKD (chronic kidney disease) stage 3, GFR 30-59 ml/min (3) COPD, severe (4) Dyslipidemia (5) GERD (gastroesophageal reflux disease) (6) Hypertension (7) IBS (irritable bowel syndrome) Surgical Problems: (1) H/O esophagogastroduodenoscopy (2) History of bilateral breast reduction surgery (3) History of tonsillectomy and adenoidectomy (4) History of total hysterectomy (5) History of ureter stent Family History Diabetes mellitus FH: lung disease FHx: heart disease Hypertension Social History Smoking Status: Former Smoker Alcohol Use: none Drug Use: none Marital Status: Housing Status: lives with family Occupation Status: retired Current/Historical Medications Scheduled Aspirin (Aspirin Low Strength), 81 MG PO DAILY Atenolol (Tenormin), 25 MG PO DAILY Atorvastatin (Lipitor), 20 MG PO DAILY Azithromycin (Azithromycin), 250 MG PO QAM Biotin (Biotin), 1,000 MCG PO DAILY Budesonide (Inhalation) (Pulmicort Respules 0.5MG/2ML), 1 UNIT NEB BID Cholecalciferol (Vitamin D3), 1 CAP PO DAILY Hydrochlorothiazide (Hydrochlorothiazide), 1 TAB PO DAILY Ondasetron Odt (Zofran Odt), 4 MG SL Q6H Scheduled PRN Albuterol Hfa (Ventolin Hfa), 2 PUFFS INH Q4 PRN for SOB/Wheezing Furosemide (Furosemide), 20-40 MG PO DAILY PRN for EDEMA Ipratropium-Albuterol (Duoneb), 1 VIAL INH QID PRN for SOB/Wheezing Lidocaine (Lidocaine), 1 PATCH TD DAILY PRN for Pain Meclizine HCl (Meclizine HCl), 1 TAB PO Q6 PRN for Dizziness or Vertigo Allergies Coded Allergies: Adhesives (Verified Allergy, Intermediate, RASH, 12/22/17) Ibuprofen (Verified Allergy, Intermediate, RASH, 12/22/17) Latex (Verified Allergy, Intermediate, RASH, 12/22/17) Naproxen (Verified Allergy, Intermediate, SWELLING, RASH, HIVES, 12/22/17) Iodinated Diagnostic Agents (Verified Allergy, Unknown, ., 12/22/17) Physical Exam Vital Signs Date Time Temp Pulse Resp B/P (MAP) Pulse Ox O2 Delivery O2 Flow Rate FiO2 12/22/17 14:47 84 20 148/79 96 Nasal Cannula 2.0 12/22/17 13:54 52 18 156/77 95 Room Air 12/22/17 12:00 63 16 173/96 99 Room Air 12/22/17 10:21 36.9 86 20 128/70 95 Room Air 2.0 Physical Exam GENERAL: Awake, alert, uncomfortable, in no distress HENT: Normocephalic, atraumatic. Oropharynx unremarkable. Dry mucous membranes. EYES: Normal conjunctiva. Sclera non-icteric. NECK: Supple. No nuchal rigidity. FROM. No JVD. RESPIRATORY: Clear to auscultation. CARDIAC: Regular rate, normal rhythm. Extremities warm and well perfused. Pulses equal. ABDOMEN: Soft, non-distended. No tenderness to palpation. No rebound or guarding. No masses. RECTAL: Deferred. MUSCULOSKELETAL: Chest examination reveals no tenderness. The back is symmetrical on inspection without obvious abnormality. There is no CVA tenderness to palpation. No joint edema. LOWER EXTREMITIES: Tenderness in RLE from calf to thigh. Pain with range of motion. 5/5 strength and sensation distally. No edema. No discoloration. NEURO: Normal sensorium. No sensory or motor deficits noted. SKIN: No rash or jaundice noted. Medical Decision & Procedures ER Provider Diagnostic Interpretation: Radiology results as stated below per my review and radiologist interpretation: PELVIS/BILATERAL HIP 2 VIEWS HISTORY: 72 years-old Female b/l hip pain acute bilateral hip pain without known trauma COMPARISON: None available TECHNIQUE: Frontal view of the pelvis with 2 views of the bilateral hips for a total of 5 images FINDINGS: Bones appear mildly demineralized. Bony pelvis is intact. Degenerative changes are noted about the bilateral SI joints and lower lumbar spine. Moderate degenerative changes of the bilateral femoral acetabular joints without acute fracture or subluxation. Round calcifications of the pelvis suggest phleboliths. IMPRESSION: No acute fracture or dislocation. The above report was generated using voice recognition software. It may contain grammatical, syntax or spelling errors. Electronically signed by: Jayden Cheng M.D. 12/22/2017 11:34 AM VENOUS DOPP LOWER EXT UNILAT HISTORY: 72 years-old Female pain swelling Q right lower extremity pain and swelling COMPARISON: None available TECHNIQUE: Multiple real-time sonographic images of the right lower extremity deep venous structures were obtained assessing grayscale appearance, color and spectral flow FINDINGS: There is normal compressibility, phasicity, flow and augmentation within the right lower extremity deep venous structures. IMPRESSION: No sonographic evidence of deep venous thrombosis. The above report was generated using voice recognition software. It may contain grammatical, syntax or spelling errors. Electronically signed by: Jayden Cheng M.D. 12/22/2017 11:37 AM A[address]OMEN AND PELVIS CT WITHOUT CONTRAST CT DOSE: 1293.19 mGy.cm HISTORY: Acute left leg and left hip pain left hip/leg pain TECHNIQUE: Multiaxial CT images of the abdomen and pelvis were performed without contrast. A dose lowering technique was utilized adhering to the principles of ALARA. COMPARISON STUDY: Duplex venous Doppler study, pelvis and hip radiographs of same day, CT abdomen and pelvis 02/10/2015. FINDINGS: Dependent subsegmental linear bibasilar opacities suggest atelectasis. There is no pneumatosis or pneumoperitoneum identified. Imaged inferior cardiac chambers are unremarkable. Mild mural fibrofatty changes of the inferior left ventricular apex suggest sequela of prior infarct. Evaluation of the solid abdominal organs is limited without the use of intravenous contrast. There is a circumscribed low attenuating 2.4 cm lesion of the left hepatic lobe which is unchanged suggesting hepatic cyst. No intrahepatic biliary ductal dilation. Prior cholecystectomy. The spleen, and adrenal glands are within normal limits. There is mild to moderate generalized pancreatic atrophy. Areas of mild cortical thinning and scarring are seen about the left kidney. 2 mm parenchymal calcification of the posterior interpolar left kidney is unchanged. There is a 5 mm nonobstructing calculus of the inferior pole left kidney. Renal sinus cysts on the left measures up to 10 mm. No ureteral calculi or hydronephrosis. Urinary bladder is partially collapsed. Prior hysterectomy. There are multiple phleboliths within the pelvis. Moderate atherosclerosis of the aorta without aneurysm. No pathologic adenopathy identified. Small diverticulum involves the third portion of the duodenum. No bowel obstruction or focal bowel wall thickening identified. The appendix appears normal. Mild diastases recti with 1.2 cm fat filled periumbilical hernia. Soft tissues are unremarkable. Mild to moderate degenerative changes about the bilateral SI joints. 7 mm bone island of the left sacrum. No evidence of sacral insufficiency fracture. Degenerative changes about the bilateral hips without acute pelvic or hip fracture identified. Multilevel advanced facet arthrosis of the lower lumbar spine. Moderate intervertebral disc space narrowing with posterior disc ossify complex formation at L5-S1. Hemangioma noted within the T12 vertebral body. IMPRESSION: 1. No acute intra-abdominal or intrapelvic abnormality identified. No bowel obstruction or focal bowel wall thickening. 2. Prior cholecystectomy and hysterectomy. 3. Nonobstructing left-sided nephrolithiasis. 4. Normal appendix. 5. Additional findings as above. Electronically signed by: Jayden Cheng M.D. 12/22/2017 12:28 PM Laboratory Results 12/22/17 11:05 Red Blood Count 4.76, Mean Corpuscular Volume 96.2, Mean Corpuscular Hemoglobin 30.9, Mean Corpuscular Hemoglobin Concent 32.1, Mean Platelet Volume 9.3, Neutrophils (%) (Auto) 73.3, Lymphocytes (%) (Auto) 17.3, Monocytes (%) (Auto) 7.7, Eosinophils (%) (Auto) 0.9, Basophils (%) (Auto) 0.5, Neutrophils # (Auto) 5.85, Lymphocytes # (Auto) 1.38, Monocytes # (Auto) 0.61, Eosinophils # (Auto) 0.07, Basophils # (Auto) 0.04 12/22/17 11:05 Test 12/22/17 11:05 12/22/17 12:00 White Blood Count 7.97 K/uL (4.8-10.8) Red Blood Count 4.76 M/uL (4.2-5.4) Hemoglobin 14.7 g/dL (12.0-16.0) Hematocrit 45.8 % (37-47) Mean Corpuscular Volume 96.2 fL (80-100) Mean Corpuscular Hemoglobin 30.9 pg (25-34) Mean Corpuscular Hemoglobin Concent 32.1 g/dl (32-36) Platelet Count 191 K/uL (130-400) Mean Platelet Volume 9.3 fL (7.4-10.4) Neutrophils (%) (Auto) 73.3 % Lymphocytes (%) (Auto) 17.3 % Monocytes (%) (Auto) 7.7 % Eosinophils (%) (Auto) 0.9 % Basophils (%) (Auto) 0.5 % Neutrophils # (Auto) 5.85 K/uL (1.4-6.5) Lymphocytes # (Auto) 1.38 K/uL (1.2-3.4) Monocytes # (Auto) 0.61 K/uL (0.11-0.59) Eosinophils # (Auto) 0.07 K/uL (0-0.5) Basophils # (Auto) 0.04 K/uL (0-0.2) RDW Standard Deviation 51.0 fL (36.4-46.3) RDW Coefficient of Variation 14.4 % (11.5-14.5) Immature Granulocyte % (Auto) 0.3 % Immature Granulocyte # (Auto) 0.02 K/uL (0.00-0.02) Anion Gap 5.0 mmol/L (3-11) Estimated GFR () 95.6 Estimated GFR (Non- 82.5 BUN/Creatinine Ratio 20.4 (10-20) Calcium Level 9.3 mg/dl (8.5-10.1) Phosphorus Level 3.1 mg/dl (2.5-4.9) Magnesium Level 2.2 mg/dl (1.8-2.4) Total Bilirubin 0.6 mg/dl (0.2-1) Direct Bilirubin 0.1 mg/dl (0-0.2) Aspartate Amino Transf (AST/SGOT) 19 U/L (15-37) Alanine Aminotransferase (ALT/SGPT) 27 U/L (12-78) Alkaline Phosphatase 99 U/L (45-117) Total Creatine Kinase 82 U/L (26-192) Total Protein 7.1 gm/dl (6.4-8.2) Albumin 3.6 gm/dl (3.4-5.0) Lipase 78 U/L (73-393) Urine Color YELLOW Urine Appearance CLEAR (CLEAR) Urine pH 7.0 (4.5-7.5) Urine Specific [place] 1.016 (1.000-1.030) Urine Protein NEG (NEG) Urine Glucose (UA) NEG (NEG) Urine Ketones NEG (NEG) Urine Occult Blood TRACE (NEG) Urine Nitrite NEG (NEG) Urine Bilirubin NEG (NEG) Urine Urobilinogen NEG (NEG) Urine Leukocyte Esterase NEG (NEG) Urine WBC (Auto) 0 /hpf (0-5) Urine RBC (Auto) 5-10 /hpf (0-4) Urine Hyaline Casts (Auto) 0 /lpf (0-5) Urine Epithelial Cells (Auto) 10-20 /lpf (0-5) Urine Bacteria (Auto) NEG (NEG) Laboratory results reviewed by me Medications Administered Medications (Trade) Dose Ordered Sig/Carlos Route Start Time Stop Time Status Last Admin Dose Admin Oxycodone/ Acetaminophen (Percocet 5-325mg Tab) 1 tab NOW ONCE PO 12/22/17 10:45 12/22/17 10:48 DC 12/22/17 11:05 1 TAB Ondansetron HCl (Zofran Odt) 4 mg NOW ONCE PO 12/22/17 12:00 12/22/17 12:01 DC 12/22/17 11:58 4 MG Sodium Chloride 1,000 ml @ 999 mls/hr Q1H1M STAT IV 12/22/17 12:38 12/22/17 13:38 DC 12/22/17 12:56 999 MLS/HR Lidocaine (Lidoderm Patch 5%) 1 patch NOW STAT TD 12/22/17 14:36 12/22/17 14:37 DC 12/22/17 14:44 1 PATCH ED Course 1030: The patient was evaluated in room A2. A complete history and physical exam was performed. 1501: I reevaluated the patient. Discussed results and discharge instructions. She verbalized understanding and agreement. The patient is ready for discharge. Medical Decision I reviewed the patient's past medical history, medications, and the nursing notes as described above. The patient's presentation and history were concerning for fracture, DVT, muscular strain, tendinitis, and sciatica. The patient is a 72-year-old woman with a past medical history of COPD on 2 L home O2 who presents emergency department with worsening right hip and leg pain for the past 5 days per hpi. On arrival the patient is uncomfortable but no acute distress, afebrile stable vital signs. She has tenderness in the right lower leg extending from the calf up to her thigh as well as inguinal area. Pain with range of motion. Otherwise has 5 out of 5 strength and sensation distally. Plain films negative for fx. Duplex negative for DVT. CT abd/pel unremarkable. Labs also unremarkable. Patient feeling improved with IVF hydration. Symptoms most likely related to muscle strain possibly provoked by mild dehydration. Option for rehab d/w patient and prefers outpatient physical therapy at this time. CM met with patient and reviewed options. Findings and plan for follow-up reviewed with patient. Patient agreeable and d/c'd per discharge instructions. Medication Reconcilliation Current Medication List: was personally reviewed by me Blood Pressure Screening Patient's blood pressure: Elevated blood pressure Blood pressure disposition: Elevated BP felt to be situational Impression Primary Impression: Right hip pain Additional Impression: Muscle strain Scribe Attestation The scribe's documentation has been prepared under my direction and personally reviewed by me in its entirety. I confirm that the note above accurately reflects all work, treatment, procedures, and medical decision making performed by me. Departure Information Dispostion Home / Self-Care Prescriptions Lidocaine (Lidocaine) 1 Patch Tdsy 1 PATCH TD DAILY Y for Pain, #10 PATCH Prov: Jovan Cruz M.D. 12/22/17 Referrals Yariel Cardoza M.D. (PCP) Forms HOME CARE DOCUMENTATION FORM, IMPORTANT VISIT INFORMATION, WORK / SCHOOL INSTRUCTIONS Patient Instructions ED MAURICIO QUISPE Strain Muscle Ext, [facility] Additional Instructions Please follow up with your primary care physician in the next 1-3 days for re- evaluation and to obtain referral for outpatient physical therapy. Your symptoms are mostly likely due to a muscle strain. Otherwise, your exam, lab results, xrays, and CT scan did not show signs of an emergent condition at this time. Acetaminophen for pain as needed. Lidoderm patch for additional pain relief. Heating pad at 20 minute intervals for additional muscle relaxation and pain relief. Drink plenty of fluids to ensure hydration. Return to the emergency department for worsening symptoms as described in the accompanying instructions. Problem Qualifiers
[2017-12-22 11:17] LABS: BASO % 0.5 %; BASO ABS # 0.04 K/uL (0-0.2); EOS % 0.9 %; EOS ABS # 0.07 K/uL (0-0.5); HEMATOCRIT 45.8 % (37-47); HEMOGLOBIN 14.7 g/dL (12.0-16.0); IG# 0.02 K/uL (0.00-0.02); LYMPH % 17.3 %; LYMPH ABS # 1.38 K/uL (1.2-3.4); MEAN CELL VOLUME 96.2 fL (80-100); MEAN CORPUSCULAR HEMOGLOBIN 30.9 pg (25-34); MEAN CORPUSCULAR HGB CONC 32.1 g/dl (32-36); MEAN PLATELET VOLUME 9.3 fL (7.4-10.4); MONO % 7.7 %; MONO ABS # 0.61 K/uL (0.11-0.59); NEUT % 73.3 %; NEUT ABS # 5.85 K/uL (1.4-6.5); PLATELET COUNT 191 K/uL (130-400); RED CELL DISTRIBUTION WIDTH CV 14.4 % (11.5-14.5); WHITE BLOOD COUNT 7.97 K/uL (4.8-10.8)
--- NOTE | 2017-12-22 11:35 | DIAGNOSTIC IMAGING REPORT ---
PELVIS/BILATERAL HIP 2 VIEWS HISTORY: 72 years-old Female b/l hip pain acute bilateral hip pain without known trauma COMPARISON: None available TECHNIQUE: Frontal view of the pelvis with 2 views of the bilateral hips for a total of 5 images FINDINGS: Bones appear mildly demineralized. Bony pelvis is intact. Degenerative changes are noted about the bilateral SI joints and lower lumbar spine. Moderate degenerative changes of the bilateral femoral acetabular joints without acute fracture or subluxation. Round calcifications of the pelvis suggest phleboliths. IMPRESSION: No acute fracture or dislocation. The above report was generated using voice recognition software. It may contain grammatical, syntax or spelling errors. Electronically signed by: Jayden Cheng M.D. 12/22/2017 11:34 AM Dictated Date/Time: 12/22/2017 11:32 AM
[2017-12-22] MEDS ORDERED: BIOT1TAB5 PO (11:39)
--- NOTE | 2017-12-22 11:39 | DIAGNOSTIC IMAGING REPORT ---
VENOUS DOPP LOWER EXT UNILAT HISTORY: 72 years-old Female pain swelling Q right lower extremity pain and swelling COMPARISON: None available TECHNIQUE: Multiple real-time sonographic images of the right lower extremity deep venous structures were obtained assessing grayscale appearance, color and spectral flow FINDINGS: There is normal compressibility, phasicity, flow and augmentation within the right lower extremity deep venous structures. IMPRESSION: No sonographic evidence of deep venous thrombosis. The above report was generated using voice recognition software. It may contain grammatical, syntax or spelling errors. Electronically signed by: Jayden Cheng M.D. 12/22/2017 11:37 AM Dictated Date/Time: 12/22/2017 11:37 AM
[2017-12-22 11:40] LABS: ALBUMIN 3.6 gm/dl (3.4-5.0); ALT/SGPT 27 U/L (12-78); AST/SGOT 19 U/L (15-37); BLOOD UREA NITROGEN 15 mg/dl (7-18); CALCIUM 9.3 mg/dl (8.5-10.1); CARBON DIOXIDE 31 mmol/L (21-32); CREATININE 0.72 mg/dl (0.60-1.20); GLUCOSE 92 mg/dl (70-99); LIPASE 78 U/L (73-393); SODIUM 140 mmol/L (136-145)
[2017-12-22 11:44] LABS: ALKALINE PHOSPHATASE 99 U/L (45-117); PHOSPHORUS 3.1 mg/dl (2.5-4.9); TOTAL PROTEIN 7.1 gm/dl (6.4-8.2)
[2017-12-22] MEDS ORDERED: ONDANSETRON 4MG OD TAB ONE (11:54)
[2017-12-22] MEDS ORDERED: ONDANSETRON 4MG OD TAB PO ONE (12:00)
[2017-12-22] MEDS ORDERED: NURSING VERBAL MED ORDER ONE (12:00)
--- NOTE | 2017-12-22 12:30 | DIAGNOSTIC IMAGING REPORT ---
ABDOMEN AND PELVIS CT WITHOUT CONTRAST CT DOSE: 1293.19 mGy.cm HISTORY: Acute left leg and left hip pain left hip/leg pain TECHNIQUE: Multiaxial CT images of the abdomen and pelvis were performed without contrast. A dose lowering technique was utilized adhering to the principles of ALARA. COMPARISON STUDY: Duplex venous Doppler study, pelvis and hip radiographs of same day, CT abdomen and pelvis 02/10/2015. FINDINGS: Dependent subsegmental linear bibasilar opacities suggest atelectasis. There is no pneumatosis or pneumoperitoneum identified. Imaged inferior cardiac chambers are unremarkable. Mild mural fibrofatty changes of the inferior left ventricular apex suggest sequela of prior infarct. Evaluation of the solid abdominal organs is limited without the use of intravenous contrast. There is a circumscribed low attenuating 2.4 cm lesion of the left hepatic lobe which is unchanged suggesting hepatic cyst. No intrahepatic biliary ductal dilation. Prior cholecystectomy. The spleen, and adrenal glands are within normal limits. There is mild to moderate generalized pancreatic atrophy. Areas of mild cortical thinning and scarring are seen about the left kidney. 2 mm parenchymal calcification of the posterior interpolar left kidney is unchanged. There is a 5 mm nonobstructing calculus of the inferior pole left kidney. Renal sinus cysts on the left measures up to 10 mm. No ureteral calculi or hydronephrosis. Urinary bladder is partially collapsed. Prior hysterectomy. There are multiple phleboliths within the pelvis. Moderate atherosclerosis of the aorta without aneurysm. No pathologic adenopathy identified. Small diverticulum involves the third portion of the duodenum. No bowel obstruction or focal bowel wall thickening identified. The appendix appears normal. Mild diastases recti with 1.2 cm fat filled periumbilical hernia. Soft tissues are unremarkable. Mild to moderate degenerative changes about the bilateral SI joints. 7 mm bone island of the left sacrum. No evidence of sacral insufficiency fracture. Degenerative changes about the bilateral hips without acute pelvic or hip fracture identified. Multilevel advanced facet arthrosis of the lower lumbar spine. Moderate intervertebral disc space narrowing with posterior disc ossify complex formation at L5-S1. Hemangioma noted within the T12 vertebral body. IMPRESSION: 1. No acute intra-abdominal or intrapelvic abnormality identified. No bowel obstruction or focal bowel wall thickening. 2. Prior cholecystectomy and hysterectomy. 3. Nonobstructing left-sided nephrolithiasis. 4. Normal appendix. 5. Additional findings as above. Electronically signed by: Jayden Cheng M.D. 12/22/2017 12:28 PM Dictated Date/Time: 12/22/2017 12:19 PM
[2017-12-22] MEDS ORDERED: SODIUM CHLORIDE 0.9% 1000ML 1,000 ML IV STA (12:38)
[2017-12-22] MEDS ORDERED: LDDP5 TD (14:34)
[2017-12-22] MEDS ORDERED: LIDODERM (LIDOCAINE) PATCH 5% TD STA (14:36)
[2017-12-22 14:47] VITALS: BP 148/79; PULSE 84; O2SAT 96
== END 2017-12-22 14:49 | disposition home or self-care (01) ==
LOC: C.EDB 10:12 → C.EDA 14:49
DX: M25.551 Pain in right hip (principal); S76.001A Unspecified injury of muscle, fascia and tendon of right hip, initial encounter; X58.XXXA Exposure to other specified factors, initial encounter; Y92.9 Unspecified place or not applicable; N18.3 Chronic kidney disease, stage 3 (moderate); J44.9 Chronic obstructive pulmonary disease, unspecified; M19.90 Unspecified osteoarthritis, unspecified site; E78.5 Hyperlipidemia, unspecified; K21.9 Gastro-esophageal reflux disease without esophagitis; I12.9 Hypertensive chronic kidney disease with stage 1 through stage 4 chronic kidney disease, or unspecified chronic kidney disease; K58.9 Irritable bowel syndrome, unspecified; Z83.3 Family history of diabetes mellitus; Z83.6 Family history of other diseases of the respiratory system; Z82.49 Family history of ischemic heart disease and other diseases of the circulatory system; Z87.891 Personal history of nicotine dependence; Z79.82 Long term (current) use of aspirin; Z79.899 Other long term (current) drug therapy; Z91.048 Other nonmedicinal substance allergy status; Z88.8 Allergy status to other drugs, medicaments and biological substances; Z91.041 Radiographic dye allergy status

== ENCOUNTER → 2018-01-09 | Outpatient (CLI) | payer OTHER ==
[~2018-01-09] MED LIST changes: +BIOT1TAB5 PO; +LDDP5 TD; -POTA10TA32 PO; -PRD20 PO; -TMF75 PO
--- NOTE | 2018-01-09 09:36 | DIAGNOSTIC IMAGING REPORT ---
THYROID ULTRASONOGRAPHY CLINICAL HISTORY: E04.1 Thyroid nodule COMPARISON STUDY: Outside study dated 06/21/2017 FINDINGS: The right lobe of the thyroid measures 4.5 x 2.2 x 1.4 cm. The left lobe of the thyroid measures 6.5 x 2.5 x 1.6 cm. Both lobes are heterogeneous in echotexture. There is a heterogeneous ill-defined mixed echogenicity lower pole left lobe thyroid nodule measuring 28 x 23 x 21 mm IMPRESSION: 1. Diffuse heterogeneity of the thyroid echotexture 2. Heterogeneous ill-defined left lower pole lobe thyroid nodule measuring 28 x 23 x 21 mm. This nodule measured 25 x 22 x 22 mm on the prior outside June 2017 study. Electronically signed by: Michael Campa M.D. 01/09/2018 9:35 AM Dictated Date/Time: 01/09/2018 9:31 AM
== END | disposition home or self-care (01) ==
LOC: C.ULTR 08:48
PROVIDERS: ATTEND Physician Assistant
DX: E04.1 Nontoxic single thyroid nodule (principal)

== ENCOUNTER 2020-09-18 15:38 | Inpatient (IN) ==
[2020-09-18 16:13] LABS: Basophils # (auto) 0.03 K/uL (0-0.2); Basophils % (auto) 0.3 %; Eosinophils # (auto) 0.13 K/uL (0-0.5); Eosinophils % (auto) 1.3 %; Hematocrit (blood only) 44.6 % (37-47); Hemoglobin 14.1 g/dL (12.0-16.0); Immature Granulocytes # (auto) 0.03 K/uL (0.00-0.02); Immature Granulocytes % (auto) 0.3 %; Lymphocytes # (auto) 2.51 K/uL (1.2-3.4); Lymphocytes % (auto) 24.2 %; Mean Corpuscular Hemoglobin 30.2 pg (25-34); Mean Corpuscular Hgb Conc 31.6 g/dL (32-36); Mean Corpuscular Volume 95.5 fL (80-100); Mean Platelet Volume 9.8 fL (7.4-10.4); Monocytes # (auto) 1.22 K/uL (0.11-0.59); Monocytes % (auto) 11.8 %; Neutrophils # (auto) 6.45 K/uL (1.4-6.5); Neutrophils % (auto) 62.1 %; Platelet Count 216 K/uL (130-400); RDW Coefficient of Variation 14.3 % (11.5-14.5); RDW Standard Deviation 49.7 fL (36.4-46.3); Red Blood Count 4.67 M/uL (4.2-5.4); White Blood Count 10.37 K/uL (4.8-10.8)
[2020-09-18] MEDS ORDERED: SODIUM CHLORIDE 0.9% 1000ML 1,000 ML IV SCH (16:15)
[2020-09-18 16:28] LABS: INR 1.1 (0.9-1.1); Partial Thromboplastin Ratio 0.9; Partial Thromboplastin Time 26.1 Seconds (21.0-31.0); Prothrombin Time 11.5 Seconds (9.0-12.0)
[2020-09-18 16:32] LABS: Alanine Aminotransferase 28 U/L (12-78); Albumin Globulin Ratio 0.9 (0.9-2); Albumin Level 3.5 gm/dl (3.4-5.0); Alkaline Phosphatase 95 U/L (45-117); Aspartate Aminotransferase 31 U/L (15-37); BUN Creatinine Ratio 20.3 (10-20); Bilirubin,Total 0.6 mg/dl (0.2-1); Blood Urea Nitrogen 16 mg/dl (7-18); Carbon Dioxide 34 mmol/L (21-32); Chloride 100 mmol/L (98-107); Creatinine Clr Calc Pharmacy 63.7 ml/min; Est GFR (African American) 82.4; Est GFR (Non-African American) 71.1; Glucose 137 mg/dl (70-99); Magnesium 1.3 mg/dl (1.8-2.4); Potassium 2.5 mmol/L (3.5-5.1); Sodium 141 mmol/L (136-145); Total Protein 7.5 gm/dl (6.4-8.2); Troponin I < 0.015 ng/ml (0-0.045)
[2020-09-18] MEDS ORDERED: ONDANSETRON INJ 2 MG/ML 2 ML VIAL ONE ×2 (16:43→16:45)
[2020-09-18] MEDS ORDERED: MAGNESIUM SULFATE / D5W 1 GM/100 ML BAG IV STA (16:46)
[2020-09-18] MEDS ORDERED: METOCLOPRAMIDE HCL INJ 5 MG/ML 2 ML VIAL IV ONE (16:55)
--- NOTE | 2020-09-18 17:01 | XRay Report ---
XR chest 1V portable HISTORY: Dizziness COMPARISON: Chest 09/13/2019. FINDINGS: Slight prominence of interstitial markings is likely chronic. Otherwise, lungs are clear. N o pleural effusions. No pneumothorax. The heart is normal in size. Old, healed right-sided rib fractu res. IMPRESSION: No significant change compared to the prior study. No acute process. ACT 112: Negative or not required by law. Electronically signed by: Nate Singleton M.D. 09/18/2020 5:00 PM
[2020-09-18] MEDS: POTASSIUM CHLORIDE / WTR 10 MEQ/100 ML PLCT IV SCH ×2 (17:25→18:56)
[2020-09-18 17:56] LABS: Appearance Urine Clear (Clear); Bacteria Urine Automated 4+ (Negative); Bilirubin Urine Negative (Negative); Blood Urine 1+ (Negative); Color Urine Yellow; Glucose Urine UA Negative (Negative); Ketones Urine Trace (Negative); Leukocyte Esterase Urine Negative (Negative); Nitrite Urine Negative (Negative); Protein Urine Trace (Negative); RBC Urine Automated 0-4 /hpf (0-4); Specific Gravity Urine 1.014 (1.000-1.030); Urobilinogen Urine Negative (Negative)
--- NOTE | 2020-09-18 18:20 | CT Scan Report ---
HEAD CT NONCONTRAST CT DOSE: 585.00 mGycm HISTORY: Dizziness. Stroke evaluation TECHNIQUE: Multiaxial CT images of the head were performed without the use of intravenous contrast. A utomated exposure control was utilized for this study. A dose lowering technique was utilized adheri ng to the principles of ALARA. Comparison: Head CT 05/09/2019. Findings: Retention cysts and moderate mucosal thickening within the left maxillary sinus. There is a lso a small fluid level within the left maxillary sinus. The mastoid air cells are essentially clear. The calvarium and skull base are intact. There is no mass, hematoma, midline shift, acute infarct. W chriss matter hypodensity is nonspecific but suggestive of microvascular ischemic change. The ventricle s and sulci demonstrate mild age-related involutional changes. Impression: 1. No acute intracranial abnormality. 2. Acute on chronic left maxillary sinusitis. ACT 112: Negative or not required by law. Electronically signed by: Nate Singleton M.D. 09/18/2020 6:19 PM
[2020-09-18] MEDS ORDERED: cefTRIAXone SODIUM 2,000 MG/70 ML BAG IV STA (18:34)
[2020-09-18] MEDS ORDERED: ATORVASTATIN 20 MG TAB PO STA (19:10)
[2020-09-18] MEDS ORDERED: ASPIRIN CHEW 324 MG PO STA (19:10)
[2020-09-18] MEDS ORDERED: CLOPIDOGREL BISULFATE 300 MG TAB PO STA (19:10)
--- NOTE | 2020-09-18 19:38 | History & Physical Report ---
Date of Service September 18, 2020 Assessment & Plan (1) CVA (cerebral vascular accident): (2) UTI (urinary tract infection): (3) Hypomagnesemia: (4) Hypokalemia: (5) Sleep apnea: (6) Chronic obstructive pulmonary disease: (7) Dyslipidemia: (8) GERD (gastroesophageal reflux disease): (9) Obesity: (10) Arthritis: (11) Fibromyalgia: (12) Allergic rhinitis: (13) Hypertension: I ordered an MRI, MRA of the head and neck, Benadryl and Ativan have been ordered on-call to MRI for sedation. Neurology evaluation, she is on aspirin, Plavix, and Lipitor, we are doing a PCR to see if she is still Covid positive, DVT prophylaxis, she can eat she passed a bedside swallow eval. We will have PT OT see her and place her on 2 L of oxygen. We have started Rocephin for urinary tract infection and we are repleting her magnesium and her potassium, will recheck in the morning. History of Present Illness 75-year-old female with a past medical history of hyperlipidemia, sleep apnea, COPD, GERD, obesity, arthritis, allergic rhinitis, hypertension, and irritable bowel syndrome presents today with dizziness, nausea, and vomiting. She also noted visual changes today as well in her left eye. She said she was taking a shower when she got out of the shower she was profoundly dizzy with visual changes in the left eye. She was diagnosed with Covid over a month ago and she was not on oxygen prior to Covid but she has only been able to wean herself down to 2 L. The ER consulted teleneurology regarding her service posterior circulation event and recommended MRI, MRA of the head and neck as well. We also recommended starting aspirin Plavix and Lipitor. CAT scan revealed an acute on chronic sinusitis I saw her in the ER she says she feels little bit better but she says she does not want an MRI but ambulated try to sedate her for an MRI which she will try to do. Primary Care Provider: Yariel Cardoza MD Allergies Allergy/AdvReac Type Severity Reaction Status Date / Time adhesive Allergy Intermediate RASH Verified 09/18/20 17:17 ibuprofen Allergy Intermediate RASH Verified 09/18/20 17:17 Iodinated Contrast Media Allergy Intermediate HIVES, Verified 09/18/20 17:17 EYES SWELL SHUT latex Allergy Intermediate RASH Verified 09/18/20 17:17 naproxen Allergy Intermediate SWELLING, Verified 09/18/20 17:17 RASH, HIVES Home Medications Medication Instructions Recorded Confirmed Type aspirin 81 mg PO QAM 08/17/18 09/18/20 History atenolol 25 mg PO QAM 08/17/18 09/18/20 History atorvastatin 20 mg PO QAM 08/17/18 09/18/20 History hydrochlorothiazide 25 mg PO QAM 08/17/18 09/18/20 History meclizine 25 mg PO Q6 PRN 08/17/18 09/18/20 History omeprazole 20 mg PO BIDM 08/17/18 09/18/20 History potassium chloride 10 meq PO QAM 08/17/18 09/18/20 History dicyclomine 10 mg PO Q4 PRN 04/03/19 09/18/20 History fluticasone propionate [Flonase 1 sprays INTNAS DAILY PRN #9.9 gm 05/09/19 09/18/20 Rx Allergy Relief] amlodipine 2.5 mg PO QAM 06/09/19 09/18/20 History cholecalciferol (vitamin D3) 2,000 unit PO QAM 06/09/19 09/18/20 History [Vitamin D3] sertraline 50 mg PO QAM 06/09/19 09/18/20 History ondansetron 4 mg PO Q6H PRN #14 tab 08/09/19 09/18/20 Rx amitriptyline 25 mg PO HS 09/13/19 09/18/20 History budesonide 0.5 mg/2 mL suspension 2 ml INH BID #120 ml 09/19/19 09/18/20 Rx for nebulization albuterol sulfate 90 mcg/actuation 2 puff INHALATION Q6H PRN #18 gm 12/16/19 09/18/20 Rx aerosol inhaler ipratropium 0.5 mg-albuterol 3 mg 3 ml INH Q4H PRN #360 ml 12/16/19 09/18/20 Rx (2.5 mg base)/3 mL nebulization soln furosemide 20 mg PO DAILY PRN 05/09/20 09/18/20 History nystatin 1 applic TOPICAL TID PRN 05/09/20 09/18/20 History psyllium [Metamucil] 1 packet PO DAILY PRN 09/18/20 09/18/20 History umeclidinium-vilanterol [Anoro 1 inh INHALATION DAILY 09/18/20 09/18/20 History Ellipta] Past Med/Surg History Medical History (Updated 09/18/20 @ 19:35 by Vik Huston DO) Anxiety and depression Diverticulitis of colon Kidney stones Multiple pulmonary nodules Oral candidiasis Osteoarthritis Sciatic leg pain right Tubulovillous adenoma of colon Urge incontinence of urine Vitamin D deficiency Surgical History H/O esophagogastroduodenoscopy "repair zenkers diverticulum" History of bilateral breast reduction surgery History of bunionectomy RT History of cataract surgery RT/LEFT History of cholecystectomy Lap cholecystectomy: 06/04/16: Grade view 2, MAC#3, ETT 7.0 at [facility] History of colonoscopy History of dilatation and curettage History of removal of cyst left hand History of right breast biopsy x2--benign History of surgical removal of right nipple History of tonsillectomy and adenoidectomy History of tooth extraction all teeth History of total hysterectomy History of ureter stent Status post biopsy of thyroid gland benign Family History Brother Family history of diabetes mellitus Denies family history of Crohn's disease Colorectal cancer Ulcerative colitis Social History Smoking Status: Never smoker Second Hand Exposure: No; Hx Alcohol Use: No Hx Substance Use: No Preferred Language: Green[place]ic Communication Ability: Effective It Disaster Recovery Manager Required: No Beliefs That Will Affect Care: None marital status: Current Living Situation: Spouse Current Living Situation Comment: Lives with , daughter and 2 grandsons current occupational status: retired Feels Safe at Home: Yes Assistive Devices: Cane, Denture - Upper, Denture - Lower, Glasses and Oxygen - at Night Physical Exam Physical Exam: ROS-No Headache, positive visual Changes, positive nausea, positive vomiting, No Fever, No Chills, No Neck Pain or Stiffness, No Chest Pain, No Palpitations, No SOB, No ANDINO, No Cough, No Sputum, No Wheezing, No Abdominal Pain, No Diarrhea, No Hematemesis, No Hemoptysis, No Unexpected Weight Loss, No Flank pain, No Melena, No Hematochezia, No Frequency, No Urgency, No Burning, No Hematuria, No Rashes, No Diaphoresis. Appetite is Normal, positive dizziness Physical Exam Gen-AAO x 3, NAD, Afebrile, obese Head-NCAT, EOMI, PERRLA, Anicteric Sclera, No Posterior Pharyngeal Erythema Neck-Supple, No JVD, No Thyromegaly, No Masses, No LAD, No Bruits Lungs-Clear to Auscultation Bilaterally, No Rales, No Rhonchi, No Wheezing, No Crepitus Chest-No S4, +S1, +S2, No S3, No Murmurs, No Rubs, No Gallops, No Ectopy Abdomen-Soft, Bowel Sounds Present, Non Tender, Non Distended, No Hepatomegaly, No Splenomegaly, No Palpable Masses, No Rebound, No Rigidity, No Guarding Musculoskeletal-Full Range of Motion Bilaterally, No CVAT Extremities-No Cyanosis, No Clubbing, No Edema Nuero-Cranial Nerves II-XII grossly intact, Motor WNL, DTRs WNL, Strength WNL, Non Focal Psych-Normal Mood Results & Data Results & Data ([facility]) Vital Signs (Past 12 Hours) Vital Signs Temp Pulse Pulse Resp BP BP Pulse Ox 09/18/20 19:01 78 21 99 09/18/20 19:00 73 21 153/90 H 98 09/18/20 18:36 72 18 149/77 H 98 09/18/20 18:35 67 21 149/77 H 96 09/18/20 18:30 72 24 09/18/20 18:01 70 22 100 09/18/20 18:00 71 21 174/87 H 100 09/18/20 17:30 67 23 09/18/20 17:05 77 22 09/18/20 16:31 74 23 96 09/18/20 16:30 73 23 168/89 H 94 09/18/20 16:01 74 25 H 96 09/18/20 16:00 71 25 H 170/87 H 94 09/18/20 15:47 37.0 C 76 16 178/98 H 97 Allergies adhesive Allergy (Intermediate, Verified 09/18/20 17:17) RASH ibuprofen Allergy (Intermediate, Verified 09/18/20 17:17) RASH Iodinated Contrast Media Allergy (Intermediate, Verified 09/18/20 17:17) HIVES, EYES SWELL SHUT latex Allergy (Intermediate, Verified 09/18/20 17:17) RASH naproxen Allergy (Intermediate, Verified 09/18/20 17:17) SWELLING, RASH, HIVES Height/Weight/Isolation Height 5 ft 1 in Weight 99.7 kg Isolation Type Airborne Precautions CBC 09/18/20 09/18/20 09/18/20 15:48 15:48 15:48 WBC 10.37 RBC 4.67 Hgb 14.1 Hct 44.6 MCV 95.5 MCH 30.2 MCHC 31.6 L RDW Std Deviation 49.7 H RDW Coeff of Enoc 14.3 Plt Count 216 MPV 9.8 Immature Gran % (Auto) 0.3 Neut % (Auto) 62.1 Lymph % (Auto) 24.2 [place] % (Auto) 11.8 Eos % (Auto) 1.3 Baso % (Auto) 0.3 Neut # (Auto) 6.45 Lymph # (Auto) 2.51 [place] # (Auto) 1.22 H Eos # (Auto) 0.13 Baso # (Auto) 0.03 Immature Gran # (Auto) 0.03 H PT 11.5 INR 1.1 APTT 26.1 PTT Ratio 0.9 Sodium 141 Potassium 2.5 L* Chloride 100 Carbon Dioxide 34 H Anion Gap 6.0 BUN 16 Creatinine 0.80 Est Cr Clr Drug Dosing 63.7 Est GFR ( Amer) 82.4 Est GFR (Non-Af Amer) 71.1 BUN/Creatinine Ratio 20.3 H Glucose 137 H Calcium 9.0 Magnesium 1.3 L Total Bilirubin 0.6 AST 31 ALT 28 Alkaline Phosphatase 95 Troponin I < 0.015 Total Protein 7.5 Albumin 3.5 Globulin 4.0 Albumin/Globulin Ratio 0.9 Urine Color Urine Appearance Urine pH Ur Specific [place] Urine Protein Urine Glucose (UA) Urine Ketones Urine Blood Urine Nitrite Urine Bilirubin Urine Urobilinogen Ur Leukocyte Esterase Urine WBC (Auto) Urine RBC (Auto) U Hyaline Cast (Auto) U Epithel Cells (Auto) Urine Bacteria (Auto) 09/18/20 15:48 WBC RBC Hgb Hct MCV MCH MCHC RDW Std Deviation RDW Coeff of Enoc Plt Count MPV Immature Gran % (Auto) Neut % (Auto) Lymph % (Auto) [place] % (Auto) Eos % (Auto) Baso % (Auto) Neut # (Auto) Lymph # (Auto) [place] # (Auto) Eos # (Auto) Baso # (Auto) Immature Gran # (Auto) PT INR APTT PTT Ratio Sodium Potassium Chloride Carbon Dioxide Anion Gap BUN Creatinine Est Cr Clr Drug Dosing Est GFR ( Amer) Est GFR (Non-Af Amer) BUN/Creatinine Ratio Glucose Calcium Magnesium Total Bilirubin AST ALT Alkaline Phosphatase Troponin I Total Protein Albumin Globulin Albumin/Globulin Ratio Urine Color Yellow Urine Appearance Clear Urine pH 7.0 Ur Specific [place] 1.014 Urine Protein Trace H Urine Glucose (UA) Negative Urine Ketones Trace H Urine Blood 1+ H Urine Nitrite Negative Urine Bilirubin Negative Urine Urobilinogen Negative Ur Leukocyte Esterase Negative Urine WBC (Auto) 1-5 Urine RBC (Auto) 0-4 U Hyaline Cast (Auto) 1-5 U Epithel Cells (Auto) 10-20 H Urine Bacteria (Auto) 4+ H Chemistry 09/18/20 15:48 Sodium 141 Potassium 2.5 L* Chloride 100 Carbon Dioxide 34 H Anion Gap 6.0 BUN 16 Creatinine 0.80 Glucose 137 H Urinalysis 09/18/20 15:48 Urine Color Yellow Urine Appearance Clear Urine pH 7.0 Ur Specific [place] 1.014 Urine Protein Trace H Urine Glucose (UA) Negative Urine Ketones Trace H Urine Blood 1+ H Urine Nitrite Negative Urine Bilirubin Negative Microbiology 09/18/20 15:48 Urine,Clean Catch Urine Culture - Pending
[2020-09-18] MEDS ORDERED: NYSTATIN POWDER 15GM BTL EXT PRN (22:50)
[2020-09-18] MEDS ORDERED: FLUTICASONE PROPIONATE NA SPR 16 GM BTL PRN (22:50)
[2020-09-18] MEDS ORDERED: FUROSEMIDE 20 MG TAB PO PRN (22:50)
[2020-09-18] MEDS ORDERED: ALBUT/IPRATROP 3MG/0.5MG NEB 3 ML VIAL INH PRN (22:50)
[2020-09-18] MEDS ORDERED: ALBUTEROL HFA 8 GM INHALER INH PRN (22:50)
[2020-09-18] MEDS ORDERED: LABETALOL HCL IV 5 MG/ML 20ML IV PRN (22:50)
[2020-09-18] MEDS ORDERED: DICYCLOMINE HCL 10 MG CAP PO PRN (22:50)
[2020-09-18] MEDS ORDERED: BUDESONIDE 0.5 MG/2 ML VIAL (PULMICORT) INH SCH (22:50)
[2020-09-18] MEDS ORDERED: LORazepam 1 MG/2 ML VIAL IV PRN (23:00)
[2020-09-18] MEDS ORDERED: diphenhydrAMINE 50 MG/ML VIAL IV PRN (23:00)
[2020-09-18] MEDS ORDERED: PSYLLIUM 58.6% POWDER PACKET PO PRN (23:04)
[2020-09-18] MEDS ORDERED: ONDANSETRON 4 MG OD TAB PO PRN (23:04)
[2020-09-18] MEDS ORDERED: MECLIZINE HCL 25 MG TAB PO PRN (23:07)
[2020-09-18] MEDS: amLODIPine BESYLATE 5 MG TAB PO SCH (23:54)
[2020-09-19] MEDS: POTASSIUM CHLORIDE / WTR 10 MEQ/100 ML PLCT IV SCH ×4 (00:01→11:02)
[2020-09-19] MEDS: AMITRIPTYLINE HCL 25 MG TAB PO SCH ×2 (00:02→20:30)
[2020-09-19] MEDS: HEPARIN SOD 5,000 UNIT/0.5 ML VIAL SQ SCH ×4 (00:02→20:30)
[2020-09-19] MEDS: POTASSIUM CHLORIDE CRTAB 20 MEQ TABCR PO SCH ×3 (00:03→20:30)
[2020-09-19] MEDS: ATORVASTATIN 20 MG TAB PO SCH ×2 (00:04→08:23)
[2020-09-19] MEDS: SERTRALINE HCL 50 MG TABLET PO SCH ×2 (00:05→08:24)
--- NOTE | 2020-09-19 00:40 | Emergency Department Note ---
Impression & Plan Acute CVA (cerebrovascular accident), Dizziness, Dysconjugate gaze, Nausea & vomiting, Hypomagnesemia, Hypokalemia ED Provider Note INFORMANT: Patient ED PROVIDER(S): Gianni Adams MD CHIEF COMPLAINT: Dizziness PLAN: Disposition: Admitted Condition: Guarded MEDICAL DECISION MAKING: Patient presented with acute onset of dizziness, nausea and vomiting. She also noted visual disturbance. On physical examination she did have a disconjugate gaze which the patient states is new. On further questioning she did note diplopia. This was concerning for a posterior circulation event. The patient recently had COVID-19. She was sent for CT imaging after receiving Zofran. She became nauseated and vomited in CT imaging. She was given Reglan and Valium. This did help with her symptoms and she was able to complete CT imaging at that point. I did place a consult with [facility]. The patient is already out of the thrombolytic window at the point of arrival. She has an unremarkable head CT with regards to ischemia. She does have an incidental sinusitis. She does not have a headache or fever to suggest meningitis or encephalitis. She tells struck felt that this was likely related to a posterior circulation event likely in the [place] given the internuclear ophthalmoplegia. Plavix, aspirin, statin therapy was recommended. This was ordered after dysphagia screen. The patient refused MR imaging. She does have a severe reaction to contrast and therefore CT angiography was not performed initially. The patient does have findings concerning for possible urinalysis. Given the sinusitis and urinalysis she was treated with IV Rocephin. She also had hypomagnesemia and hypokalemia. These were repleted. The patient will need further management in the hospital. She had unremarkable cardiac monitoring and her ECG was normal. [facility] and the patient was evaluated in the ER by Dr. Huston. Triage Nursing notes reviewed and agree them. Vital Signs: reviewed and remarkable for no significant abnormalities Differential diagnosis: Benign positional vertigo, dehydration, hypovolemia, anemia, tumor, infection, hypoglycemia, electrolyte abnormalities, cardiac sources, intracerebral event, toxicologic, neurologic, as well as other pathologies. Diagnostics interpreted by me: ECG: Rate: 76 Rhythm:Normal sinus [place]:Normal QRS:Normal ST segements:No elevation or depression Other:No PACs or PVCs Cardiac Monitoring: Cardiac monitoring ordered by me: The patient was placed on continuous cardiac monitoring and observed. It revealed a normal sinus rhythm at 80 beats per minute without ectopy or evidence of dysrhythmia. Imaging studies: Chest x-ray. Findings: A chest x-ray was performed and revealed no pneumothorax, effusion, infiltrate, pulmonary edema, free air under the diaphragm, or wide mediastinum. Impression: No acute disease. Head CT: A noncontrast CT scan of the head was performed and was negative for tumor, fracture, intracranial hemorrhage, or other acute intracranial pathology. Sinusitis noted. Consultation(s): [facility], Dr. Rivas HPI: The patient is a 75 year old female who presents to the Emergency Room with complaints of dizziness. This started today about 3-1/2 to 4 hours prior to arrival and is persisting. The patient also notes the following associated symp toms, double vision and difficulty focusing especially with the left eye. The patient has found no relieving factors. EMS gave the patient 4 mg of Zofran. Current pain is rated as 0/10. Patient states that she was diagnosed with Covid 2 weeks ago. She felt like she was recovering. Her symptoms started abruptly today. Pt denies LOC, headache, fevers, chills, diaphoresis, , neck pain, chest pain, breathing difficulties, abdominal pain, back pain, melena, hematochezia, urinary symptoms, numbness, weakness, lymphadenopathy, rash, or other complaints. ROS: See above HPI for pertinent positives & negatives. A total of 10 systems reviewed and were otherwise negative. PAST MEDICAL HISTORY:See Below, COVID-19 infection hypertension PAST SURGICAL HISTORY:See Below, FAMILY HISTORY:See Below SOCIAL HISTORY:See Below, non-smoker HOME MEDICATIONS:See Below ALLERGIES:See Below VITALS:See Below PHYSICAL EXAMINATION: GENERAL: Awake, alert, ill-appearing, in no distress HENT: Normocephalic, atraumatic. Oropharynx unremarkable. EYES: Normal conjunctiva. Sclera non-icteric. PERRLA. The patient has a disconjugate gaze. The left medial rectus muscle is impaired as she cannot cross midline with the left eye. NECK: Inspection normal. Non-tender. Supple. No nuchal rigidity. FROM. No masses. RESPIRATORY: Clear to auscultation. No wheezes. No rales. Normal respiratory effort. CARDIAC: Normal rate. Normal rhythm. No murmurs. No rubs. Extremities warm and well perfused. Pulses equal. No JVD. GI: Soft, non-distended. No tenderness to palpation. No rebound or guarding. No masses. RECTAL: Deferred. MUSCULOSKELETAL: Atraumatic. Chest examination reveals no tenderness. The back is symmetrical on inspection without obvious abnormality. There is no CVA tenderness to palpation. No joint edema. LOWER EXTREMITIES: Calves are equal size bilaterally and non-tender. 1+ edema. No discoloration. NEURO: Normal sensorium. Cranial nerve abnormality noted above. No extremity abnormality. Speech is normal. The patient does have rotatory nystagmus. SKIN: No rash or jaundice noted. Gianni Adams MD Past Med/Surg History Medical History (Updated 09/19/20 @ 00:39 by Gianni Adams MD) Anxiety and depression Diverticulitis of colon Kidney stones Multiple pulmonary nodules Oral candidiasis Osteoarthritis Sciatic leg pain right Tubulovillous adenoma of colon Urge incontinence of urine Vitamin D deficiency Surgical History H/O esophagogastroduodenoscopy "repair zenkers diverticulum" History of bilateral breast reduction surgery History of bunionectomy RT History of cataract surgery RT/LEFT History of cholecystectomy Lap cholecystectomy: 06/04/16: Grade view 2, MAC#3, ETT 7.0 at [facility] History of colonoscopy History of dilatation and curettage History of removal of cyst left hand History of right breast biopsy x2--benign History of surgical removal of right nipple History of tonsillectomy and adenoidectomy History of tooth extraction all teeth History of total hysterectomy History of ureter stent Status post biopsy of thyroid gland benign Family History Brother Family history of diabetes mellitus Denies family history of Crohn's disease Colorectal cancer Ulcerative colitis Social History Smoking Status: Never smoker Second Hand Exposure: No; Hx Alcohol Use: No Hx Substance Use: No Preferred Language: Tamazight Communication Ability: Effective [employer] Reset Required: No Beliefs That Will Affect Care: None marital status: Current Living Situation: Spouse Current Living Situation Comment: Lives with , daughter and 2 grandsons current occupational status: retired Feels Safe at Home: Yes Assistive Devices: Cane, Denture - Upper, Denture - Lower, Glasses and Oxygen - at Night Allergies Allergies Allergy/AdvReac Type Severity Reaction Status Date / Time adhesive Allergy Intermediate RASH Verified 09/18/20 17:17 ibuprofen Allergy Intermediate RASH Verified 09/18/20 17:17 Iodinated Contrast Media Allergy Intermediate HIVES, Verified 09/18/20 17:17 EYES SWELL SHUT latex Allergy Intermediate RASH Verified 09/18/20 17:17 naproxen Allergy Intermediate SWELLING, Verified 09/18/20 17:17 RASH, HIVES Home Meds Home Medications Medication Instructions Recorded Confirmed aspirin 81 mg PO QAM 08/17/18 09/18/20 atenolol 25 mg PO QAM 08/17/18 09/18/20 atorvastatin 20 mg PO QAM 08/17/18 09/18/20 hydrochlorothiazide 25 mg PO QAM 08/17/18 09/18/20 meclizine 25 mg PO Q6 PRN 08/17/18 09/18/20 omeprazole 20 mg PO BIDM 08/17/18 09/18/20 potassium chloride 10 meq PO QAM 08/17/18 09/18/20 dicyclomine 10 mg PO Q4 PRN 04/03/19 09/18/20 amlodipine 2.5 mg PO QAM 06/09/19 09/18/20 cholecalciferol (vitamin D3) 2,000 unit PO QAM 06/09/19 09/18/20 [Vitamin D3] sertraline 50 mg PO QAM 06/09/19 09/18/20 amitriptyline 25 mg PO HS 09/13/19 09/18/20 furosemide 20 mg PO DAILY PRN 05/09/20 09/18/20 nystatin 1 applic TOPICAL TID PRN 05/09/20 09/18/20 psyllium [Metamucil] 1 packet PO DAILY PRN 09/18/20 09/18/20 umeclidinium-vilanterol [Anoro 1 inh INHALATION DAILY 09/18/20 09/18/20 Ellipta] Previous Rx's Medication Instructions Recorded fluticasone propionate [Flonase 1 sprays INTNAS DAILY PRN #9.9 gm 05/09/19 Allergy Relief] ondansetron 4 mg PO Q6H PRN #14 tab 08/09/19 budesonide 0.5 mg/2 mL suspension 2 ml INH BID #120 ml 09/19/19 for nebulization albuterol sulfate 90 mcg/actuation 2 puff INHALATION Q6H PRN #18 gm 12/16/19 aerosol inhaler ipratropium 0.5 mg-albuterol 3 mg 3 ml INH Q4H PRN #360 ml 12/16/19 (2.5 mg base)/3 mL nebulization soln Results & Data (ED) Vital Signs Vital Signs - 24 hr 09/18/20 15:47 09/18/20 16:00 09/18/20 16:01 Temperature 37.0 C Temperature Source Oral Pulse Rate 76 71 74 Pulse Rate [Apical] Pulse Rate from SpO2 Sensor 72 73 Pulse Rhythm Regular Pulse Strength Normal Respiratory Rate 16 25 H 25 H Respiratory Effort / Characteristics Non-Labored Respiratory Depth Normal Respiratory Pattern Regular Blood Pressure 178/98 H 170/87 H Blood Pressure [Right Arm] Blood Pressure Mean 124 107 Blood Pressure Mean [Right Arm] Blood Pressure Position Sitting Blood Pressure Position [Right Arm] Pulse Oximetry 97 94 96 Oxygen Delivery Method Room Air Sepsis Recent Fever Within 48 Hours No Sepsis New/Unexplained Change in Mental Status N/A Sepsis Action Taken by Nursing No Action Required 09/18/20 16:30 09/18/20 16:31 09/18/20 17:05 Temperature Temperature Source Pulse Rate 73 74 77 Pulse Rate [Apical] Pulse Rate from SpO2 Sensor 73 74 Pulse Rhythm Pulse Strength Respiratory Rate 23 23 22 Respiratory Effort / Characteristics Respiratory Depth Respiratory Pattern Blood Pressure 168/89 H Blood Pressure [Right Arm] Blood Pressure Mean 112 Blood Pressure Mean [Right Arm] Blood Pressure Position Blood Pressure Position [Right Arm] Pulse Oximetry 94 96 Oxygen Delivery Method Sepsis Recent Fever Within 48 Hours Sepsis New/Unexplained Change in Mental Status Sepsis Action Taken by Nursing 09/18/20 17:30 09/18/20 18:00 09/18/20 18:01 Temperature Temperature Source Pulse Rate 67 71 70 Pulse Rate [Apical] Pulse Rate from SpO2 Sensor 71 70 Pulse Rhythm Pulse Strength Respiratory Rate 23 21 22 Respiratory Effort / Characteristics Respiratory Depth Respiratory Pattern Blood Pressure 174/87 H Blood Pressure [Right Arm] Blood Pressure Mean 113 Blood Pressure Mean [Right Arm] Blood Pressure Position Blood Pressure Position [Right Arm] Pulse Oximetry 100 100 Oxygen Delivery Method Sepsis Recent Fever Within 48 Hours Sepsis New/Unexplained Change in Mental Status Sepsis Action Taken by Nursing 09/18/20 18:30 09/18/20 18:35 09/18/20 18:36 Temperature Temperature Source Pulse Rate 72 67 Pulse Rate [Apical] 72 Pulse Rate from SpO2 Sensor 70 67 Pulse Rhythm Pulse Strength Respiratory Rate 24 21 18 Respiratory Effort / Characteristics Non-Labored Spontaneous Respiratory Depth Normal Respiratory Pattern Blood Pressure 149/77 H Blood Pressure [Right Arm] 149/77 H Blood Pressure Mean 92 Blood Pressure Mean [Right Arm] 101 Blood Pressure Position Blood Pressure Position [Right Arm] Sitting Pulse Oximetry 96 98 Oxygen Delivery Method Room Air Sepsis Recent Fever Within 48 Hours Sepsis New/Unexplained Change in Mental Status Sepsis Action Taken by Nursing 09/18/20 19:00 09/18/20 19:01 09/18/20 19:30 Temperature Temperature Source Pulse Rate 73 78 73 Pulse Rate [Apical] Pulse Rate from SpO2 Sensor 74 74 75 Pulse Rhythm Pulse Strength Respiratory Rate 21 21 25 H Respiratory Effort / Characteristics Respiratory Depth Respiratory Pattern Blood Pressure 153/90 H 169/96 H Blood Pressure [Right Arm] Blood Pressure Mean 107 132 Blood Pressure Mean [Right Arm] Blood Pressure Position Blood Pressure Position [Right Arm] Pulse Oximetry 98 99 95 Oxygen Delivery Method Sepsis Recent Fever Within 48 Hours Sepsis New/Unexplained Change in Mental Status Sepsis Action Taken by Nursing 09/18/20 19:31 Temperature Temperature Source Pulse Rate 73 Pulse Rate [Apical] Pulse Rate from SpO2 Sensor 74 Pulse Rhythm Pulse Strength Respiratory Rate 23 Respiratory Effort / Characteristics Respiratory Depth Respiratory Pattern Blood Pressure Blood Pressure [Right Arm] Blood Pressure Mean Blood Pressure Mean [Right Arm] Blood Pressure Position Blood Pressure Position [Right Arm] Pulse Oximetry 94 Oxygen Delivery Method Sepsis Recent Fever Within 48 Hours Sepsis New/Unexplained Change in Mental Status Sepsis Action Taken by Nursing Laboratory Data Result diagrams: 09/18/20 15:48 09/18/20 15:48 Lab Results 09/18/20 09/18/20 09/18/20 Range/Units 15:48 15:48 15:48 WBC 10.37 (4.8-10.8) K/uL RBC 4.67 (4.2-5.4) M/uL Hgb 14.1 (12.0-16.0) g/dL Hct 44.6 (37-47) % MCV 95.5 (80-100) fL MCH 30.2 (25-34) pg MCHC 31.6 L (32-36) g/dL RDW Std Deviation 49.7 H (36.4-46.3) fL RDW Coeff of Enoc 14.3 (11.5-14.5) % Plt Count 216 (130-400) K/uL MPV 9.8 (7.4-10.4) fL Immature Gran % (Auto) 0.3 % Neut % (Auto) 62.1 % Lymph % (Auto) 24.2 % Keith % (Auto) 11.8 % Eos % (Auto) 1.3 % Baso % (Auto) 0.3 % Neut # (Auto) 6.45 (1.4-6.5) K/uL Lymph # (Auto) 2.51 (1.2-3.4) K/uL Keith # (Auto) 1.22 H (0.11-0.59) K/uL Eos # (Auto) 0.13 (0-0.5) K/uL Baso # (Auto) 0.03 (0-0.2) K/uL Immature Gran # (Auto) 0.03 H (0.00-0.02) K/uL PT 11.5 (9.0-12.0) Seconds INR 1.1 (0.9-1.1) APTT 26.1 (21.0-31.0) Seconds PTT Ratio 0.9 Sodium 141 (136-145) mmol/L Potassium 2.5 L* (3.5-5.1) mmol/L Chloride 100 (98-107) mmol/L Carbon Dioxide 34 H (21-32) mmol/L Anion Gap 6.0 (3-11) BUN 16 (7-18) mg/dl Creatinine 0.80 (0.6-1.2) mg/dl Est Cr Clr Drug Dosing 63.7 ml/min Est GFR ( Amer) 82.4 Est GFR (Non-Af Amer) 71.1 BUN/Creatinine Ratio 20.3 H (10-20) Glucose 137 H (70-99) mg/dl Calcium 9.0 (8.5-10.1) mg/dl Magnesium 1.3 L (1.8-2.4) mg/dl Total Bilirubin 0.6 (0.2-1) mg/dl AST 31 (15-37) U/L ALT 28 (12-78) U/L Alkaline Phosphatase 95 (45-117) U/L Troponin I < 0.015 (0-0.045) ng/ml Total Protein 7.5 (6.4-8.2) gm/dl Albumin 3.5 (3.4-5.0) gm/dl Globulin 4.0 (2.5-4.0) gm/dl Albumin/Globulin Ratio 0.9 (0.9-2) Urine Color Urine Appearance (Clear) Urine pH (4.5-7.5) Ur Specific [place] (1.000-1.030) Urine Protein (Negative) Urine Glucose (UA) (Negative) Urine Ketones (Negative) Urine Blood (Negative) Urine Nitrite (Negative) Urine Bilirubin (Negative) Urine Urobilinogen (Negative) Ur Leukocyte Esterase (Negative) Urine WBC (Auto) (0-5) /hpf Urine RBC (Auto) (0-4) /hpf U Hyaline Cast (Auto) (0-5) /lpf U Epithel Cells (Auto) (0-5) /lpf Urine Bacteria (Auto) (Negative) Blood Type Antibody Screen 09/18/20 09/18/20 Range/Units 15:48 17:45 WBC (4.8-10.8) K/uL RBC (4.2-5.4) M/uL Hgb (12.0-16.0) g/dL Hct (37-47) % MCV (80-100) fL MCH (25-34) pg MCHC (32-36) g/dL RDW Std Deviation (36.4-46.3) fL RDW Coeff of Enoc (11.5-14.5) % Plt Count (130-400) K/uL MPV (7.4-10.4) fL Immature Gran % (Auto) % Neut % (Auto) % Lymph % (Auto) % Keith % (Auto) % Eos % (Auto) % Baso % (Auto) % Neut # (Auto) (1.4-6.5) K/uL Lymph # (Auto) (1.2-3.4) K/uL Keith # (Auto) (0.11-0.59) K/uL Eos # (Auto) (0-0.5) K/uL Baso # (Auto) (0-0.2) K/uL Immature Gran # (Auto) (0.00-0.02) K/uL PT (9.0-12.0) Seconds INR (0.9-1.1) APTT (21.0-31.0) Seconds PTT Ratio Sodium (136-145) mmol/L Potassium (3.5-5.1) mmol/L Chloride (98-107) mmol/L Carbon Dioxide (21-32) mmol/L Anion Gap (3-11) BUN (7-18) mg/dl Creatinine (0.6-1.2) mg/dl Est Cr Clr Drug Dosing ml/min Est GFR ( Amer) Est GFR (Non-Af Amer) BUN/Creatinine Ratio (10-20) Glucose (70-99) mg/dl Calcium (8.5-10.1) mg/dl Magnesium (1.8-2.4) mg/dl Total Bilirubin (0.2-1) mg/dl AST (15-37) U/L ALT (12-78) U/L Alkaline Phosphatase (45-117) U/L Troponin I (0-0.045) ng/ml Total Protein (6.4-8.2) gm/dl Albumin (3.4-5.0) gm/dl Globulin (2.5-4.0) gm/dl Albumin/Globulin Ratio (0.9-2) Urine Color Yellow Urine Appearance Clear (Clear) Urine pH 7.0 (4.5-7.5) Ur Specific [place] 1.014 (1.000-1.030) Urine Protein Trace H (Negative) Urine Glucose (UA) Negative (Negative) Urine Ketones Trace H (Negative) Urine Blood 1+ H (Negative) Urine Nitrite Negative (Negative) Urine Bilirubin Negative (Negative) Urine Urobilinogen Negative (Negative) Ur Leukocyte Esterase Negative (Negative) Urine WBC (Auto) 1-5 (0-5) /hpf Urine RBC (Auto) 0-4 (0-4) /hpf U Hyaline Cast (Auto) 1-5 (0-5) /lpf U Epithel Cells (Auto) 10-20 H (0-5) /lpf Urine Bacteria (Auto) 4+ H (Negative) Blood Type O Positive Antibody Screen NEGATIVE Administered Medications Amitriptyline HCl (Amitriptyline Hcl 25 Mg Tab) 25 mg PO HS [facility] Stop: 10/18/20 22:49 Last Admin: 09/19/20 00:02 Dose: 25 mg Documented by: [id number] Amlodipine Besylate (Amlodipine Besylate 5 Mg Tab) 2.5 mg PO QAM [facility] Stop: 10/18/20 22:49 Last Admin: 09/18/20 23:54 Dose: Not Given Documented by: [id number] Atorvastatin Calcium (Atorvastatin 20 Mg Tab) 20 mg PO QAM [facility] Stop: 10/18/20 22:49 Last Admin: 09/19/20 00:04 Dose: 20 mg Documented by: [id number] Heparin Sodium (Porcine) (Heparin Sod 5,000 Unit/0.5 Ml Vial) 5,000 units SQ Q8 [facility] Stop: 10/18/20 22:49 Last Admin: 09/19/20 00:02 Dose: 5,000 units Documented by: [id number] Potassium Chloride (K Juan / Wtr) 10 meq in 100 mls @ 100 mls/hr IV Q1H [facility] Stop: 09/19/20 00:49 Last Admin: 09/19/20 00:01 Dose: 100 mls/hr Documented by: [id number] Potassium Chloride (Potassium Chloride Crtab 20 Meq Tabcr) 40 meq PO Q12 [facility] Stop: 10/18/20 22:49 Last Admin: 09/19/20 00:03 Dose: 40 meq Documented by: [id number] Sertraline HCl (Sertraline Hcl 50 Mg Tablet) [facility] Stop: 10/18/20 22:49 Last Admin: 09/19/20 00:05 Dose: 50 mg Documented by: [id number] Discontinued Medications Aspirin (Aspirin Chew 324 Mg) 243 mg PO NOW STA Stop: 09/18/20 19:11 Last Admin: 09/18/20 19:33 Dose: 243 mg Documented by: [id number] Atorvastatin Calcium (Atorvastatin 20 Mg Tab) 20 mg PO NOW STA Stop: 09/18/20 19:11 Last Admin: 09/18/20 20:33 Dose: 20 mg Documented by: [id number] Budesonide (Budesonide 0.5 Mg/2 Ml Vial (Pulmicort)) 0.5 mg INH BIDR [facility] Stop: 10/18/20 22:49 Last Admin: 09/18/20 23:34 Dose: 0.5 mg Documented by: [id number] Clopidogrel Bisulfate (Clopidogrel Bisulfate 300 Mg Tab) 300 mg PO NOW STA Stop: 09/18/20 19:11 Last Admin: 09/18/20 19:34 Dose: 300 mg Documented by: [id number] Diazepam (Diazepam 5 Mg/Ml Inj 10ml Vial) 2.5 mg IV NOW STA Stop: 09/18/20 16:47 Last Admin: 09/18/20 17:24 Dose: 2.5 mg Documented by: [id number] Sodium Chloride (Nss 1000ml) 1,000 mls @ 50 mls/hr IV .Q20H [facility] Stop: 10/18/20 16:14 Last Infusion: 09/18/20 23:11 Dose: 0 mls/hr Documented by: [id number] Admin: 09/18/20 16:40 Dose: 50 mls/hr Documented by: [id number] Magnesium Sulfate/Dextrose (Magnesium Sulfate / D5w) 1 gm in 100 mls @ 100 mls/hr IV NOW STA Stop: 09/18/20 17:45 Last Infusion: 09/18/20 18:56 Dose: 0 mls/hr Documented by: [id number] Admin: 09/18/20 17:24 Dose: 100 mls/hr Documented by: [id number] Potassium Chloride (K Juan / Wtr) 10 meq in 100 mls @ 100 mls/hr IV Q1H [facility] Stop: 09/18/20 18:59 Last Infusion: 09/18/20 19:58 Dose: 0 mls/hr Documented by: [id number] Admin: 09/18/20 18:56 Dose: 100 mls/hr Documented by: [id number] Infusion: 09/18/20 18:55 Dose: 0 mls/hr Documented by: [id number] Admin: 09/18/20 17:25 Dose: 100 mls/hr Documented by: [id number] Ceftriaxone Sodium (Rocephin) 2,000 mg in 70 mls @ 140 mls/hr IV NOW STA Stop: 09/18/20 19:03 Last Infusion: 09/18/20 19:33 Dose: 0 mls/hr Documented by: [id number] Admin: 09/18/20 18:56 Dose: 140 mls/hr Documented by: [id number] Metoclopramide HCl (Metoclopramide Hcl Inj 5 Mg/Ml 2 Ml Vial) 5 mg IV ONE ONE Stop: 09/18/20 16:56 Last Admin: 09/18/20 17:01 Dose: 5 mg Documented by: [id number] Ondansetron HCl (Ondansetron Inj 2 Mg/Ml 2 Ml Vial) Confirm Administered Dose 4 mg .ROUTE .STK-MED ONE Stop: 09/18/20 16:44 Last Admin: 09/18/20 17:01 Dose: 4 mg Documented by: [id number] Ondansetron HCl (Ondansetron Inj 2 Mg/Ml 2 Ml Vial) Confirm Administered Dose 4 mg .ROUTE .STFastCall-MED ONE Stop: 09/18/20 16:46 Last Admin: 09/18/20 17:26 Dose: Not Given Documented by: [id number] Discharge Plan Visit Data Chief Complaint: Vertigo Stated Complaint: dizzy, blurred vision, n/v ED Provider: Gianni Adams Discharge Problem: Acute CVA (cerebrovascular accident), Dizziness, Dysconjugate gaze, Nausea & vomiting, Hypomagnesemia, Hypokalemia Patient Disposition: Admitted As Inpatient Discharge Instructions Interventions: ED Discharge Assessment Last Done: 09/18/20 22:26
[2020-09-19] MEDS ORDERED: LORazepam 0.5 MG/1 ML VIAL IV STA (01:53)
[2020-09-19] MEDS ORDERED: LORazepam 0.25 MG/0.5 ML VIAL IV STA (03:33)
[2020-09-19] MEDS: MAGNESIUM SULFATE / D5W 1 GM/100 ML BAG IV SCH ×2 (04:29→08:27)
[2020-09-19] MEDS ORDERED: GADOBUTROL 65ML VIAL IV ONE (06:40)
--- NOTE | 2020-09-19 07:21 | Magnetic Resonance Report ---
MRA OF THE INTRACRANIAL CIRCULATION WITHOUT CONTRAST CLINICAL HISTORY: Cerebrovascular accident. COMPARISON STUDY: Head CT September 18, 2020. TECHNIQUE: Utilizing a 1.5 Reanna magnet and 3-D [id number] technique, unenhanced MRA of the intra cranial circulation was obtained. FINDINGS: This exam is moderately compromised by motion artifact. The bilateral M1, M2, A1 and A2 seg ments are patent. No intracranial aneurysm is identified. No central vessel occlusion is noted. The b ilateral vertebral arteries are suboptimally assessed on this examination. There may be stenosis of t he distal intracranial portion of the right vertebral artery. IMPRESSION: 1. No central vessel occlusion. 2. Exam compromised by artifact. Possible stenosis of the distal intracranial portion of the right ve rtebral artery. ACT 112: Negative or not required by law. Electronically signed by: João Villatoro M.D. 09/19/2020 7:20 AM
--- NOTE | 2020-09-19 07:32 | Magnetic Resonance Report ---
MRI OF THE BRAIN WITHOUT IV CONTRAST CLINICAL HISTORY: Strokelike symptoms. Vomiting. COMPARISON STUDY: CT of the brain dated 09/18/2020. TECHNIQUE: MRI of the brain was performed utilizing various T1 and T2-weighted sequences in the axial , sagittal, and coronal planes. IV contrast was not administered for this examination. FINDINGS: Brain parenchyma: There is age-related involutional change noting moderate subcortical and periventri cular microangiopathic disease. There is no hemorrhage or mass effect. There is no restricted diffusi on to suggest acute ischemia. Woodson-white matter differentiation is preserved. No extra-axial fluid co llection is seen. The cerebellar tonsils are normal in configuration. Ventricles, sulci, and cisterns: Prominent secondary to involutional change. Pituitary and sella: Unremarkable. Intracranial vasculature: Normal flow voids are maintained at the skull base. Orbits: The bony orbits are grossly intact. Orbital contents are normal in appearance noting bilatera l ocular lens implants. Sinuses and mastoids: There is near complete opacification of the left maxillary antrum. Trace mucosa l thickening is seen within the left posterior ethmoid sinuses. The remaining paranasal sinuses are c lear. There is a left mastoid effusion. Calvarium: Unremarkable. Cervical cord: Partially visualized cervical spinal cord is normal in morphology and signal intensity . IMPRESSION: 1. No acute intracranial abnormality. 2. Left mastoid sinus disease as above. ACT 112: Negative or not required by law. Electronically signed by: Jose D Cruz M.D. 09/19/2020 7:31 AM
[2020-09-19] MEDS: hydroCHLOROthiazide 25 MG TAB PO SCH (07:43)
[2020-09-19] MEDS: amLODIPine BESYLATE 5 MG TAB PO SCH (07:43)
[2020-09-19] MEDS: ATENOLOL 25 MG TABLET PO SCH (07:43)
--- NOTE | 2020-09-19 07:43 | Magnetic Resonance Report ---
MR ANGIOGRAM OF THE NECK COMBO CLINICAL HISTORY: Strokelike symptoms. COMPARISON STUDY: No priors. TECHNIQUE: Axial 3-D [id number] MR angiography of the neck is performed. Subsequently, following the IV administration of 9.1 cc of Gadavist. Coronal MR angiogram of the neck was performed to corrob orate the findings. 3-D reformats are created and assessed. All measurements were calculated based on NASCET criteria. The examination is compromised by motion artifact. FINDINGS: Visualized portions of the thoracic aorta are normal in caliber. The aortic arch demonstrat es standard 3-vessel anatomy. The subclavian arteries are widely patent bilaterally. The right common carotid artery is widely patent, as are the right internal and external carotid arteries. The left c ommon carotid artery is widely patent, as are the left internal and external carotid arteries. The ve rtebral arteries are widely patent. The vertebral arteries are codominant. The visualized intracrania l vessels at the skull base appear patent. IMPRESSION: Unremarkable MR angiogram of the neck. ACT 112: Negative or not required by law. Electronically signed by: Jose D Cruz M.D. 09/19/2020 8:16 AM
[2020-09-19 07:44] LABS: Hematocrit (blood only) 41.9 % (37-47); Hemoglobin 13.1 g/dL (12.0-16.0); Mean Corpuscular Hgb Conc 31.3 g/dL (32-36); Mean Corpuscular Volume 96.1 fL (80-100); Mean Platelet Volume 9.4 fL (7.4-10.4); Platelet Count 180 K/uL (130-400); RDW Coefficient of Variation 14.4 % (11.5-14.5); RDW Standard Deviation 50.7 fL (36.4-46.3); Red Blood Count 4.36 M/uL (4.2-5.4); White Blood Count 6.66 K/uL (4.8-10.8)
[2020-09-19] MEDS ORDERED: Nursing to Pharmacy Communication SCH (08:00)
[2020-09-19] MEDS: UMECLIDINIUM/VILANTEROL 62.5/25MCG 7 PUFFS/INHALER INH SCH (08:23)
[2020-09-19] MEDS: CHOLECALCIFEROL 1,000 UNITS 25 MCG TAB PO SCH (08:23)
[2020-09-19] MEDS: CLOPIDOGREL BISULFATE 75 MG TAB PO SCH (08:23)
[2020-09-19] MEDS: ASPIRIN 81 MG ECTAB PO SCH (08:25)
[2020-09-19] MEDS: PANTOprazole 40 MG TAB PO SCH ×2 (08:26→17:42)
[2020-09-19 08:27] LABS: Calcium 8.3 mg/dl (8.5-10.1); Creatinine Clr Calc Pharmacy 76.1 ml/min; Est GFR (African American) 99.8; Est GFR (Non-African American) 86.1; Magnesium 1.9 mg/dl (1.8-2.4); Phosphorus 2.5 mg/dl (2.5-4.9); Potassium 2.9 mmol/L (3.5-5.1)
[2020-09-19] MEDS ORDERED: cefTRIAXone SODIUM 1,000 MG/50 ML BAG IV SCH (09:00)
--- NOTE | 2020-09-19 15:23 | Neurology Consultation ---
Date of Consultation September 19, 2020 Assessment & Plan (1) Dizziness: 1. dizziness and vision changes 2. PT for Jerry maneuver 3. continue plavix 75 mg and aspirin 81 mg x 21 day then plavix alone for life 4. optimize HTN HLD, DM LDL <70 5. needs ophthalmology exam as out patient - complaint of double vision and loss of vision in right eye 6. TTE- r/o any abnormality 7. follow up with neurology as outpatient 4-6 weeks after discharge Ashley Birmingham PAC schedule. Supervising Physician Co-Signing Physician Notes I have seen and discussed above patient with Dr Ashley Wallace, neurology. PT seen and examined. hx of vertigo in past. hx of several hours of vertigo, query impaired vision in R eye, but with eyes covered vision was nml. Query brief double vision. Sx positionally worse. In spite of hours of sx, imaging noncontrib other than poss vert stenosis. Exam notable for mild horiz nystagmus at extremes of gaze. Provocative head manuevers essentially nml, althouth when pt sat upright reproduces sx. Impression: Suspect this is a peripheral labrynthopathy, rec Jerry manuever. since some subjective sx that could be central in nature rec vasc pedroza including zio as outpt,risk factor modification and dual antiplt tx x 21 d then Plavix 75 mg alone. LORRIE Wallace MD History of Present Illness Reason for Consultation: possible CVA Requesting Physician: Gianni Hernandez MD Attending Physician: Gianni Hernandez MD History of Present Illness Jayla is a 75 year old female with PMH- HLD, VIRA, COPD, GERD, obesity, OA, allergic rhinitis,HTN and irritable bowel syndrome presents to ED 09/18/2020 with dizziness, nausea, and vomiting and blurring of left eye. She said she was taking a shower when she got out of the shower she was profoundly dizzy with visual changes in the left eye. She was diagnosed with Covid over a month ago and she was not on oxygen prior to Covid but she has only been able to wean herself down to 2 L. Teleneurology recommended MRI, MRA of the head and neck and recommended starting aspirin Plavix and Lipitor. She has a history of vertigo and was on meclizine at one point but was never sent for an Jerry maneuver. The spinning would not stop with sitting. She did have a headache after the event. she denies any history extensive migraines she did have a couple in her lifetime. denies falls, current vision changes, N, V, new bowel or bladder issues, one sided weakness, numbness tingling. Allergies Allergy/AdvReac Type Severity Reaction Status Date / Time adhesive Allergy Intermediate RASH Verified 09/18/20 17:17 ibuprofen Allergy Intermediate RASH Verified 09/18/20 17:17 Iodinated Contrast Media Allergy Intermediate HIVES, Verified 09/18/20 17:17 EYES SWELL SHUT latex Allergy Intermediate RASH Verified 09/18/20 17:17 naproxen Allergy Intermediate SWELLING, Verified 09/18/20 17:17 RASH, HIVES Home Medications Medication Instructions Recorded Confirmed Type aspirin 81 mg PO QAM 08/17/18 09/18/20 History atenolol 25 mg PO QAM 08/17/18 09/18/20 History atorvastatin 20 mg PO QAM 08/17/18 09/18/20 History hydrochlorothiazide 25 mg PO QAM 08/17/18 09/18/20 History meclizine 25 mg PO Q6 PRN 08/17/18 09/18/20 History omeprazole 20 mg PO BIDM 08/17/18 09/18/20 History potassium chloride 10 meq PO QAM 08/17/18 09/18/20 History dicyclomine 10 mg PO Q4 PRN 04/03/19 09/18/20 History fluticasone propionate [Flonase 1 sprays INTNAS DAILY PRN #9.9 gm 05/09/19 09/18/20 Rx Allergy Relief] amlodipine 2.5 mg PO QAM 06/09/19 09/18/20 History cholecalciferol (vitamin D3) 2,000 unit PO QAM 06/09/19 09/18/20 History [Vitamin D3] sertraline 50 mg PO QAM 06/09/19 09/18/20 History ondansetron 4 mg PO Q6H PRN #14 tab 08/09/19 09/18/20 Rx amitriptyline 25 mg PO HS 09/13/19 09/18/20 History budesonide 0.5 mg/2 mL suspension 2 ml INH BID #120 ml 09/19/19 09/18/20 Rx for nebulization albuterol sulfate 90 mcg/actuation 2 puff INHALATION Q6H PRN #18 gm 12/16/19 09/18/20 Rx aerosol inhaler ipratropium 0.5 mg-albuterol 3 mg 3 ml INH Q4H PRN #360 ml 12/16/19 09/18/20 Rx (2.5 mg base)/3 mL nebulization soln furosemide 20 mg PO DAILY PRN 05/09/20 09/18/20 History nystatin 1 applic TOPICAL TID PRN 05/09/20 09/18/20 History psyllium [Metamucil] 1 packet PO DAILY PRN 09/18/20 09/18/20 History umeclidinium-vilanterol [Anoro 1 inh INHALATION DAILY 09/18/20 09/18/20 History Ellipta] Patient History Medical History (Updated 09/19/20 @ 00:39 by Gianni Adams MD) Anxiety and depression Diverticulitis of colon Kidney stones Multiple pulmonary nodules Oral candidiasis Osteoarthritis Sciatic leg pain right Tubulovillous adenoma of colon Urge incontinence of urine Vitamin D deficiency Surgical History H/O esophagogastroduodenoscopy "repair zenkers diverticulum" History of bilateral breast reduction surgery History of bunionectomy RT History of cataract surgery RT/LEFT History of cholecystectomy Lap cholecystectomy: 06/04/16: Grade view 2, MAC#3, ETT [address] [facility] History of colonoscopy History of dilatation and curettage History of removal of cyst left hand History of right breast biopsy x2--benign History of surgical removal of right nipple History of tonsillectomy and adenoidectomy History of tooth extraction all teeth History of total hysterectomy History of ureter stent Status post biopsy of thyroid gland benign Family History Brother Family history of diabetes mellitus Denies family history of Crohn's disease Colorectal cancer Ulcerative colitis Social History Smoking Status: Unknown if ever smoked Second Hand Exposure: No; Do You Dip or Chew Tobacco: No; Hx Alcohol Use: No Hx Substance Use: No Preferred Language: [place] Communication Ability: Effective Center Mgr Required: No Beliefs That Will Affect Care: None marital status: Current Living Situation: Family Current Living Situation Comment: Lives with , daughter and 2 grandsons current occupational status: retired Other Information That Helps Us Care for You: No Feels Safe at Home: Yes Safety Concerns: Feels Safe At This Time Assistive Devices: Denture - Upper, Denture - Lower, Oxygen - Continuous and Walker Review of Systems Review of Systems: All systems reviewed & are unremarkable except as noted in HPI & below and All systems reviewed & are unremarkable except as noted in Subjective Physical Exam Physical Exam: Physical Exam: Constitutional: appearance over nourished Ears, Nose, Mouth and Throat: mucous membranes moist, no injection and skin normal, eyes normal Cardiovascular: normal S-1 and S-2 and regular rate and rhythm Respiratory: course breath sounds Musculoskeletal: non pitting peripheral edema and good distal pulses Skin: no stigmata of neurocutaneous disease noted and normal and intact Eyes: extraocular muscles intact (EOMI) and pupils equal, round and reactive to light (PERRL), gross peripheral vision intact NEUROLOGIC EXAMINATION: Mental status: Alert and interactive Oriented to full date and location Oriented to person Speech fluent with no evidence of aphasia Cranial Nerves smile eye brow raise symmetric Reflexes: Deep tendon reflexes were symmetrical and graded 2/5. down going toes Sensory: no sensory deficits, light and cool touch Coordination: finger to nose, heel to nobles intact bilaterally Gait/Stance: Posture lying in bed, gait not assessed Motor: Negative for pronator drift of out stretched arms with eyes closed. 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 bilaterally 5/5, hip flex plantar flex ext bilaterally 5/5 Results & Data ([facility]) Vital Signs (Past 12 Hours) Vital Signs Temp Pulse Resp BP Pulse Ox 09/19/20 07:27 36.5 C 78 16 144/85 H 95 09/19/20 04:00 88 157/98 H Laboratory Results Abnormal lab results 09/18/20 09/18/20 09/18/20 Range/Units 15:48 15:48 15:48 MCHC 31.6 L (32-36) g/dL RDW Std Deviation 49.7 H (36.4-46.3) fL [place] # (Auto) 1.22 H (0.11-0.59) K/uL Immature Gran # (Auto) 0.03 H (0.00-0.02) K/uL Potassium 2.5 L* (3.5-5.1) mmol/L Carbon Dioxide 34 H (21-32) mmol/L BUN/Creatinine Ratio 20.3 H (10-20) Glucose 137 H (70-99) mg/dl Calcium (8.5-10.1) mg/dl Ionized Calcium (1.12-1.32) mmol/L Magnesium 1.3 L (1.8-2.4) mg/dl Urine Protein Trace H (Negative) Urine Ketones Trace H (Negative) Urine Blood 1+ H (Negative) U Epithel Cells (Auto) 10-20 H (0-5) /lpf Urine Bacteria (Auto) 4+ H (Negative) 09/19/20 09/19/20 09/19/20 Range/Units 07:20 07:20 07:20 MCHC 31.3 L (32-36) g/dL RDW Std Deviation 50.7 H (36.4-46.3) fL [place] # (Auto) (0.11-0.59) K/uL Immature Gran # (Auto) (0.00-0.02) K/uL Potassium 2.9 L D (3.5-5.1) mmol/L Carbon Dioxide 33 H (21-32) mmol/L BUN/Creatinine Ratio (10-20) Glucose 100 H (70-99) mg/dl Calcium 8.3 L (8.5-10.1) mg/dl Ionized Calcium 1.07 L (1.12-1.32) mmol/L Magnesium (1.8-2.4) mg/dl Urine Protein (Negative) Urine Ketones (Negative) Urine Blood (Negative) U Epithel Cells (Auto) (0-5) /lpf Urine Bacteria (Auto) (Negative) 09/19/20 Range/Units 13:49 MCHC (32-36) g/dL RDW Std Deviation (36.4-46.3) fL [place] # (Auto) (0.11-0.59) K/uL Immature Gran # (Auto) (0.00-0.02) K/uL Potassium 3.4 L D (3.5-5.1) mmol/L Carbon Dioxide (21-32) mmol/L BUN/Creatinine Ratio (10-20) Glucose (70-99) mg/dl Calcium (8.5-10.1) mg/dl Ionized Calcium (1.12-1.32) mmol/L Magnesium (1.8-2.4) mg/dl Urine Protein (Negative) Urine Ketones (Negative) Urine Blood (Negative) U Epithel Cells (Auto) (0-5) /lpf Urine Bacteria (Auto) (Negative) Diagnostic Findings MRI brain-No acute intracranial abnormality. Left mastoid sinus disease as above. MRA-Unremarkable MR angiogram of the neck. MRA neck -No central vessel occlusion. Exam compromised by artifact. Possible stenosis of the distal intracranial portion of the right vertebral artery.
--- NOTE | 2020-09-19 19:27 | Electrocardiogram Report ---
Test Reason : Blood Pressure : / mmHG Vent. Rate : 076 BPM Atrial Rate : 076 BPM P-R Int : 168 ms QRS Dur : 088 ms QT Int : 424 ms P-R-T Axes : 042 -18 050 degrees QTc Int : 477 ms Poor data quality, interpretation may be adversely affected Normal sinus rhythm Normal ECG When compared with ECG of 13-SEP-2019 10:51, QT has lengthened Confirmed by Irving Calderon ([id number]) on 09/19/2020 7:26:42 PM Referred By: REFERRED SELF Confirmed By:Irving Calderon
[2020-09-19] MEDS: cefTRIAXone SODIUM 2,000 MG in DEXTROSE 5% 50 ML IV SCH (20:30)
--- NOTE | 2020-09-19 23:08 | Hospitalist Progress Note ---
Date of Service September 19, 2020 Assessment & Plan (1) Stroke-like symptoms: Presented with acute vertigo and visual changes. No acute neuro findings on CT or MRI brain (age-related small vessel white matter disease noted on MRI). MRA cervical and intracranial vessels only notable for ? stenosis distal intracranial portion of right vertebral artery. EKG showed NSR. Neuro consulted. Possible TIA despite negative imaging. Antiplatelet therapy with aspirin + clopidogrel x 3 weeks followed by clopidogrel lobsterman recommended. Check lipid profile. Monitor for arrhythmias. (2) Visual changes: ? TIA. Outpatient eye evaluation recommended. (3) Vertigo: ? central vs peripheral. Consult PT for Jerry maneuver. (4) Hypertension: Continue HCTZ, amlodipine, atenolol. (5) Hypokalemia: Probably due to HCTZ. Replace, follow. (6) Sleep apnea: Continue nocturnal O2. (7) Urinary tract infection: C&S pending. Continue ceftriaxone. (8) DVT prophylaxis: SQ heparin. Ambulate. (9) Discharge planning issues: Anticipated discharge to home. Family Medicine follow-up with Dr. Cardoza. Outpatient eye evaluation by Ophthalmology or Optometry recommended. Admission and Anticipated Discharge Date Admission Date: September 18, 2020 Subjective Recheck for stroke-like symptoms. Patient seen in their room around 1420. Admitted yesterday with sudden onset of vertigo, blurred vision, and diplopia. Symptoms have resolved. Has a frontal headache which she attributes to sinus pressure. Review of Systems: Constitutional- no fever. Cardiac- no chest pain. Pulmonary- occasional cough, no SOB. GI- no nausea, vomiting, diarrhea, melena, hematochezia. - no urinary symptoms. Otherwise, as noted above. Physical Exam Constitutional: no acute distress Eyes: + anicteric sclerae Respiratory: normal respiratory effort, lungs clear to auscultation Cardiovascular: Rate/Rhythm: regular rate and regular rhythm Vessels: no JVD Extremities: no calf tenderness and no edema Gastrointestinal (Abdomen): normal bowel sounds, soft, nontender, no hepatosplenomegaly Musculoskeletal: Extremities: no cyanosis Skin: no rashes, warm and dry Neurologic: PERRL, EOMI no facial palsy no dysarthria or aphasia motor strength upper and lower extremities 5/5 bilat Psychiatric: Orientation: alert and oriented x 3 Results & Data Results & Data ([facility]) Vital Signs (Past 12 Hours) Vital Signs Temp Pulse Resp BP Pulse Ox 09/19/20 16:05 36.5 C 73 16 143/85 H 91 Laboratory Results Laboratory Results - last 24 hr 09/19/20 09/19/20 09/19/20 07:20 07:20 07:20 WBC 6.66 RBC 4.36 Hgb 13.1 Hct 41.9 MCV 96.1 MCH 30.0 MCHC 31.3 L RDW Std Deviation 50.7 H RDW Coeff of Enoc 14.4 Plt Count 180 MPV 9.4 Sodium 143 Potassium 2.9 L D Chloride 106 Carbon Dioxide 33 H Anion Gap 5.0 BUN 11 Creatinine 0.64 Est Cr Clr Drug Dosing 76.1 Est GFR ( Amer) 99.8 Est GFR (Non-Af Amer) 86.1 BUN/Creatinine Ratio 17.0 Glucose 100 H Calcium 8.3 L Ionized Calcium 1.07 L Phosphorus 2.5 Magnesium 1.9 09/19/20 13:49 WBC RBC Hgb Hct MCV MCH MCHC RDW Std Deviation RDW Coeff of Enoc Plt Count MPV Sodium Potassium 3.4 L D Chloride Carbon Dioxide Anion Gap BUN Creatinine Est Cr Clr Drug Dosing Est GFR ( Amer) Est GFR (Non-Af Amer) BUN/Creatinine Ratio Glucose Calcium Ionized Calcium Phosphorus Magnesium
[2020-09-20] MEDS: HEPARIN SOD 5,000 UNIT/0.5 ML VIAL SQ SCH ×3 (06:00→20:40)
[2020-09-20 06:54] LABS: BUN Creatinine Ratio 15.2 (10-20); Calcium 8.8 mg/dl (8.5-10.1); Creatinine Clr Calc Pharmacy 61.6 ml/min; Est GFR (African American) 83.7; Est GFR (Non-African American) 72.2; Magnesium 2.3 mg/dl (1.8-2.4); Potassium 4.2 mmol/L (3.5-5.1)
[2020-09-20] MEDS: ATORVASTATIN 20 MG TAB PO SCH (07:58)
[2020-09-20] MEDS: ATENOLOL 25 MG TABLET PO SCH (07:59)
[2020-09-20] MEDS: hydroCHLOROthiazide 25 MG TAB PO SCH (07:59)
[2020-09-20] MEDS: amLODIPine BESYLATE 5 MG TAB PO SCH (08:00)
[2020-09-20] MEDS: SERTRALINE HCL 50 MG TABLET PO SCH (08:02)
[2020-09-20] MEDS: PANTOprazole 40 MG TAB PO SCH ×2 (08:02→18:02)
[2020-09-20] MEDS: CLOPIDOGREL BISULFATE 75 MG TAB PO SCH (08:02)
[2020-09-20] MEDS: ASPIRIN 81 MG ECTAB PO SCH (08:02)
[2020-09-20] MEDS: UMECLIDINIUM/VILANTEROL 62.5/25MCG 7 PUFFS/INHALER INH SCH (08:03)
[2020-09-20] MEDS: POTASSIUM CHLORIDE CRTAB 20 MEQ TABCR PO SCH ×2 (08:03→20:41)
[2020-09-20] MEDS: CHOLECALCIFEROL 1,000 UNITS 25 MCG TAB PO SCH (08:03)
--- NOTE | 2020-09-20 15:51 | Neurology Progress Note ---
Date of Service September 20, 2020 Assessment & Plan (1) Dizziness: 1. dizziness and vision changes 2. PT for Jerry maneuver - deferred may need out patient referral to PT for Jerry 3. continue plavix 75 mg and aspirin 81 mg x 21 day then plavix alone for life 4. optimize HTN HLD, DM LDL <70 5. needs ophthalmology exam as out patient - complaint of double vision and loss of vision in right eye 6. TTE- r/o any abnormality - ordered 7. follow up with neurology as outpatient 4-6 weeks after discharge Ashley Birmingham PAC schedule. Admission and Anticipated Discharge Date Admission Date: September 18, 2020 Supervising Physician Co-Signing Physician Notes I have seen and discussed above patient with Dr Ashley Wallace, neurology. PT seen and examined, discussed with Dr Hernandez. Pt doing well, was made dizzy today by Tarun Samuels. Jerry not done. No recurrent visual sx. Funduscopic exam is difficult sec to miosis. Pupils are reactive, post-surgical, no APD. Motility nml. Speech, language unremarkable.No UE or LE dystaxis. Imp: part of hx and exam suggestive of a peripheral labrynthopathy. That would not explain impaired vision in R eye or brief diplopia. P Jerry, demonstrated labrynthine exercises. As a central etiol not excluded with re to visual sx, dual antiplt tx x 21 d then Plavix 75 mg alone, risk modification. Echo and zio as outpt.ophthal eval as outpt MD Alice Shaina Dickerson is a 75 year old female with PMH- HLD, VIRA, COPD, GERD, obesity, OA, allergic rhinitis,HTN and irritable bowel syndrome presents to ED 09/18/2020 with dizziness, nausea, and vomiting and blurring of left eye. She said she was taking a shower when she got out of the shower she was profoundly dizzy with visual changes in the left eye. She was diagnosed with Covid over a month ago and she was not on oxygen prior to Covid but she has only been able to wean herself down to 2 L. Teleneurology recommended MRI, MRA of the head and neck and recommended starting aspirin Plavix and Lipitor. She has a history of vertigo and was on meclizine at one point but was never sent for an Jerry maneuver. The spinning would not stop with sitting. She did have a headache after the event. she denies any history extensive migraines she did have a couple in her lifetime. Today she is a little dizzy again because of PT doing the Jerry on her. She has been up and walking with PT and expects to go home soon. denies falls, current vision changes, N, V, new bowel or bladder issues, one sided weakness, numbness tingling. Review of Systems Review of Systems: All systems reviewed & are unremarkable except as noted in HPI & below and All systems reviewed & are unremarkable except as noted in Subjective Physical Exam Physical Exam: Physical Exam: Constitutional: appearance over nourished Ears, Nose, Mouth and Throat: mucous membranes moist, no injection and skin normal, eyes normal Cardiovascular: normal S-1 and S-2 and regular rate and rhythm Respiratory: course breath sounds Musculoskeletal: non pitting peripheral edema and good distal pulses Skin: no stigmata of neurocutaneous disease noted and normal and intact Eyes: extraocular muscles intact (EOMI) and pupils equal, round and reactive to light (PERRL), gross peripheral vision intact NEUROLOGIC EXAMINATION: Mental status: Alert and interactive Oriented to full date and location Oriented to person Speech fluent with no evidence of aphasia Cranial Nerves smile eye brow raise symmetric Reflexes: Deep tendon reflexes were symmetrical and graded 2/5. down going toes Sensory: no sensory deficits, light and cool touch Coordination: finger to nose Gait/Stance: Posture sitting up in bedside chair, gait not assessed Motor: Negative for pronator drift of out stretched arms with eyes closed. 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
[2020-09-20] MEDS: cefTRIAXone SODIUM 2,000 MG in DEXTROSE 5% 50 ML IV SCH (20:40)
[2020-09-20] MEDS: AMITRIPTYLINE HCL 25 MG TAB PO SCH (20:41)
--- NOTE | 2020-09-20 22:11 | Hospitalist Progress Note ---
Date of Service September 20, 2020 Assessment & Plan (1) Stroke-like symptoms: Presented with acute vertigo and visual changes. No acute neuro findings on CT or MRI brain (age-related small vessel white matter disease noted on MRI). MRA cervical and intracranial vessels only notable for ? stenosis distal intracranial portion of right vertebral artery. EKG showed NSR. Neuro consulted. Possible TIA despite negative imaging. Antiplatelet therapy with aspirin + clopidogrel x 3 weeks followed by clopidogrel associate director of biostatistics recommended. LDL-c = 35. Continue statin. Echo pending. Monitor for arrhythmias. (2) Visual changes: ? TIA. Outpatient eye evaluation recommended. (3) Vertigo: ? central vs peripheral. PT consulted for Jerry maneuver. (4) Hypertension: Continue HCTZ, amlodipine, atenolol. (5) Hypokalemia: K 2.5 at time of admission. Probably due to HCTZ. Receiving replacement. K today 4.2. Will need Rx for higher dose of KCl at [place]. (6) Sleep apnea: Continue nocturnal O2. (7) Urinary tract infection: C&S growing Klebsiella pneumoniae, pansensitive. Received ceftriaxone, transition to amox/clav (to treat sinusitis as well). (8) Sinusitis: Experiencing sinus pressure. CT showed left maxillary sinusitis. Rx with amox/clav and nasal saline. (9) DVT prophylaxis: SQ heparin. Ambulate. (10) Discharge planning issues: Anticipated discharge to home. Family Medicine follow-up with Dr. Cardoza. Outpatient eye evaluation by Ophthalmology or Optometry recommended. Daughter Cathy given update this evening by phone. Admission and Anticipated Discharge Date Admission Date: September 18, 2020 Subjective Recheck for stroke-like symptoms. Patient seen in their room around 1630. Persistent positional vertigo. No further visual changes. Persistent sinus headache. Review of Systems: Constitutional- no fever. Cardiac- no chest pain. Pulmonary- occasional cough, no SOB. GI- no nausea, vomiting, diarrhea, melena, hematochezia. - no urinary symptoms. Otherwise, as noted above. Physical Exam Constitutional: no acute distress Eyes: + anicteric sclerae Respiratory: normal respiratory effort, lungs clear to auscultation Cardiovascular: Rate/Rhythm: regular rate and regular rhythm Vessels: no JVD Extremities: no calf tenderness and no edema Gastrointestinal (Abdomen): normal bowel sounds, soft, nontender, no hepatosplenomegaly Musculoskeletal: Extremities: no cyanosis Skin: no rashes, warm and dry Psychiatric: Orientation: alert and oriented x 3 Results & Data Results & Data ([facility]) Vital Signs (Past 12 Hours) Vital Signs Temp Pulse Pulse Resp BP Pulse Ox 09/20/20 19:00 36.8 C 73 20 144/89 H 97 09/20/20 16:00 36.7 C 67 20 149/89 H 95 09/20/20 15:58 66 09/20/20 12:37 70 155/83 H 93 09/20/20 11:06 37.2 C 73 20 189/83 H 95
[2020-09-21] MEDS ORDERED: ACETAMINOPHEN 325 MG TAB PO STA (02:50)
[2020-09-21 06:13] LABS: BUN Creatinine Ratio 22.8 (10-20); Calcium 8.8 mg/dl (8.5-10.1); Creatinine Clr Calc Pharmacy 58.7 ml/min; Est GFR (African American) 78.8; Potassium 4.7 mmol/L (3.5-5.1)
[2020-09-21] MEDS: HEPARIN SOD 5,000 UNIT/0.5 ML VIAL SQ SCH ×3 (06:16→20:05)
[2020-09-21] MEDS: ATENOLOL 25 MG TABLET PO SCH (08:31)
[2020-09-21] MEDS: hydroCHLOROthiazide 25 MG TAB PO SCH (08:31)
[2020-09-21] MEDS: AMOXICILLIN/CLAVULANATE 875 MG TAB PO SCH ×2 (08:32→16:59)
[2020-09-21] MEDS: SERTRALINE HCL 50 MG TABLET PO SCH (08:32)
[2020-09-21] MEDS: amLODIPine BESYLATE 5 MG TAB PO SCH (08:32)
[2020-09-21] MEDS: POTASSIUM CHLORIDE CRTAB 20 MEQ TABCR PO SCH (08:33)
[2020-09-21] MEDS: ATORVASTATIN 20 MG TAB PO SCH (08:33)
[2020-09-21] MEDS: CHOLECALCIFEROL 1,000 UNITS 25 MCG TAB PO SCH (08:33)
[2020-09-21] MEDS: ASPIRIN 81 MG ECTAB PO SCH (08:33)
[2020-09-21] MEDS: PANTOprazole 40 MG TAB PO SCH ×2 (08:34→16:59)
[2020-09-21] MEDS: UMECLIDINIUM/VILANTEROL 62.5/25MCG 7 PUFFS/INHALER INH SCH (08:34)
[2020-09-21] MEDS: CLOPIDOGREL BISULFATE 75 MG TAB PO SCH (08:34)
[2020-09-21] MEDS: SODIUM CHLORIDE 0.65% NA SOLN 45 ML (OCEAN) SCH ×3 (08:39→20:05)
--- NOTE | 2020-09-21 13:10 | Hospitalist Progress Note ---
Date of Service September 21, 2020 Assessment & Plan (1) Vertigo: Presented with acute vertigo and visual changes which have improved since admission. Imaging has not identified any acute stroke, however there was questionable artifact versus stenosis in the distal intracranial portion of the right vertebral artery. She was found to have sinus infection and she clinically had symptoms consistent with this and has been improving on antibiotic therapy. She was also found to have a urinary tract infection, which may have been contributing. Per neurology we will proceed with dual antiplatelet therapy including baby aspirin and clopidogrel x3 weeks followed by clopidogrel long-term in addition to statin therapy as a central event cannot be completely ruled out. She is working with physical therapy who has cleared her as safe to return home however, she is having intermittent symptoms of vertigo and blurry vision, although improved, are still present and making her concern for a safe transition home. We will continue monitoring patient and plan for discharge to home when she is feeling improved with follow-up with neurology in 4 to 6 weeks. Of note, recent Covid infection may be influencing some of this. (2) Visual changes: Some blurriness is still present. 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 Continue plan as above and I did touch base with physical therapy regarding treatment with Jerry maneuver while she was here. Outpatient ophthalmologic exam recommended. (3) Hypertension: Chronic, controlled, Continue HCTZ, amlodipine, atenolol. (4) Hypokalemia: Presented with potassium 2.5, given supplementation. Current potassium is 4.7. Decrease supplementation amount and she will need to go home with something on discharge. Possibly secondary to diuretic use with HCTZ. As needed Lasix. follow-up as outpatient. (5) Sleep apnea: Continue nocturnal O2. (6) Urinary tract infection: C&S growing Klebsiella pneumoniae, pansensitive. Received ceftriaxone, transition to amox/clav (to treat sinusitis as well). (7) Sinusitis: Experiencing sinus pressure. And significant nasal drainage in the last few weeks as well as a headache. CT scan revealed evidence of sinusitis. She is on treatment with Augmentin and is improving. (8) DVT prophylaxis: SQ heparin. Ambulate. Full Code Dispo-to home when improved symptomatically Kristin Anderson DO [facility] Hospitalist Admission and Anticipated Discharge Date Admission Date: September 18, 2020 Subjective 75 yo F with stroke like symptoms including nausea, vomiting, acute vertigo and feelings of severe lightheadedness. -still reports feelings of vertigo when acutely changing position and with looking down -she reports "I don't feel comfortable going home" -reports head congestion and recent sinus drainage that is improving. -reports pain in her lower edentulous area preventing use of her lower dentures since recent infection with COVID -is ambulating with PT well but still has concerns with intermittent symptoms coming on. -reports bilateral blurry vision Review of Systems Review of Systems: All systems reviewed & are unremarkable except as noted in Subjective Physical Exam Physical Exam: CONSTITUTIONAL: WNWD, vitals as above, generally well- appearing EYES: EOMI bilaterally, pupils are round and equal bilaterally, normal conjunctivae, no scleral icterus ENT: external ear and nose normal, oropharynx clear, edentulous, small ulceration on lower incisor regionalong gumline. NECK: trachea midline RESPIRATORY: clear to auscultation bilaterally, no crackles, rales or wheezes, normal respiratory effort CARDIOVASCULAR: regular rate and rhythm, S1 and 2 heard without murmurs, gallops or rubs, no JVD, no peripheral edema GASTROINTESTINAL: normal bowel sounds, soft, nontender, nondistended MUSCULOSKELETAL: strength 5/5 throughout, head is normocephalic and atraumatic SKIN: warm and dry NEUROLOGIC: CN 2-12 grossly intact, no sensory deficit, normal cognition, normal speech, no tremor PSYCHIATRIC: alert cooperative and oriented to person, place and time. Results & Data Results & Data ([facility]) Vital Signs (Past 12 Hours) Vital Signs Temp Pulse Pulse Resp BP BP Pulse Ox 09/21/20 11:56 36.4 C L 59 L 18 156/88 H 93 09/21/20 09:33 69 09/21/20 08:05 36.6 C 62 20 148/80 H 96 09/21/20 04:00 36.8 C 64 20 157/88 H 96 Laboratory Results [facility] 09/21/20 05:16 Sodium 140 Potassium 4.7 Chloride 104 Carbon Dioxide 33 H BUN 19 H D Creatinine 0.83 Glucose 104 H Calcium 8.8 Medications Administered Current Inpatient Medications Albuterol (Albuterol Hfa 8 Gm Inhaler) 2 puffs INH Q6H PRN PRN Reason: Wheezing or shortness of breath Stop: 10/18/20 22:49 Albuterol (Albut/Ipratrop 3mg/0.5mg Neb 3 Ml Vial) 3 ml INH Q4H PRN PRN Reason: wheezing Stop: 10/18/20 22:49 Amitriptyline HCl (Amitriptyline Hcl 25 Mg Tab) 25 mg PO [facility] Stop: 10/18/20 22:49 Last Admin: 09/20/20 20:41 Dose: 25 mg Documented by: Amlodipine Besylate (Amlodipine Besylate 5 Mg Tab) 2.5 mg PO [facility] Stop: 10/18/20 22:49 Last Admin: 09/21/20 08:32 Dose: 2.5 mg Documented by: Amoxicillin/Clavulanate Potassium (Amoxicillin/Clavulanate 875 Mg Tab) [facility] [place] Stop: 10/01/20 07:59 Last Admin: 09/21/20 08:32 Dose: 1 tab Documented by: Aspirin (Aspirin 81 Mg Ectab) 81 mg PO [facility] Stop: 10/19/20 08:59 Last Admin: 09/21/20 08:33 Dose: 81 mg Documented by: Atenolol (Atenolol 25 Mg Tablet) 25 mg PO [facility] Stop: 10/19/20 08:59 Last Admin: 09/21/20 08:31 Dose: 25 mg Documented by: Atorvastatin Calcium (Atorvastatin 20 Mg Tab) 20 mg PO [facility] Stop: 10/18/20 22:49 Last Admin: 09/21/20 08:33 Dose: 20 mg Documented by: Benzocaine (Benzocaine 20% (Orajel) 11.9 Gm Tube) 1 appln MT TID PRN PRN Reason: Pain Stop: 10/21/20 13:15 Clopidogrel Bisulfate (Clopidogrel Bisulfate 75 Mg Tab) 75 mg PO [facility] Stop: 10/19/20 08:59 Last Admin: 09/21/20 08:34 Dose: 75 mg Documented by: Dicyclomine HCl (Dicyclomine Hcl 10 Mg Cap) 10 mg PO Q4 PRN PRN Reason: Abdominal Discomfort Stop: 10/18/20 22:49 Fluticasone Propionate (Fluticasone Propionate Na Spr 16 Gm Btl) 1 sprays NA DAILY PRN PRN Reason: nasal congestion Stop: 10/18/20 22:49 Furosemide (Furosemide 20 Mg Tab) 20 mg PO DAILY PRN PRN Reason: swelling Stop: 10/18/20 22:49 Heparin Sodium (Porcine) (Heparin Sod 5,000 Unit/0.5 Ml Vial) 5,000 units SQ Q8 [facility] Stop: 10/18/20 22:49 Last Admin: 09/21/20 06:16 Dose: Not Given Documented by: Hydrochlorothiazide (Hydrochlorothiazide 25 Mg Tab) 25 mg PO QAM [facility] Stop: 10/19/20 08:59 Last Admin: 09/21/20 08:31 Dose: 25 mg Documented by: Labetalol HCl (Labetalol Hcl Iv 5 Mg/Ml 20ml) 10 mg IV Q10M PRN PRN Reason: SBP above 185 or DBP above 110 Last Admin: 09/20/20 12:03 Dose: 10 mg Documented by: Meclizine HCl (Meclizine Hcl 25 Mg Tab) 25 mg PO Q6 PRN PRN Reason: Dizziness Or Vertigo Stop: 10/18/20 23:06 Nystatin (Nystatin Powder 15gm Btl) 1 appln EXT TID PRN PRN Reason: Skin Irritation Stop: 10/18/20 22:49 Ondansetron HCl (Ondansetron 4 Mg Od Tab) 4 mg PO Q6H PRN PRN Reason: nausea and vomiting Stop: 10/18/20 23:03 Last Admin: 09/21/20 02:42 Dose: 4 mg Documented by: Pantoprazole Sodium (Pantoprazole 40 Mg Tab) 40 mg PO BIDM [facility] Stop: 10/19/20 07:59 Last Admin: 09/21/20 08:34 Dose: 40 mg Documented by: Potassium Chloride (Potassium Chloride Crtab 20 Meq Tabcr) 40 meq PO Q12 [facility] Stop: 10/18/20 22:49 Last Admin: 09/21/20 08:33 Dose: 40 meq Documented by: Psyllium Hydrophilic Mucilloid (Psyllium 58.6% Powder Packet) 1 pkt PO DAILY PRN PRN Reason: Constipation Stop: 10/18/20 23:03 Sertraline HCl (Sertraline Hcl 50 Mg Tablet) 50 mg PO QAM [facility] Stop: 10/18/20 22:49 Last Admin: 09/21/20 08:32 Dose: 50 mg Documented by: Sodium Chloride (Sodium Chloride 0.65% Na Soln 45 Ml ([place])) 2 sprays NA TID [facility] Stop: 10/21/20 08:59 Last Admin: 09/21/20 08:39 Dose: 2 sprays Documented by: Umeclidinium/Vilanterol (Umeclidinium/Vilanterol 62.5/25mcg 7 Puffs/Inhaler) 1 puffs INH DAILY [facility] Stop: 10/19/20 08:59 Last Admin: 09/21/20 08:34 Dose: 1 puffs Documented by: Vitamin D (Cholecalciferol 1,000 Units 25 Mcg Tab) 2,000 units PO QAM [facility] Stop: 10/19/20 08:59 Last Admin: 09/21/20 08:33 Dose: 2,000 units Documented by:
[2020-09-21] MEDS ORDERED: BENZOCAINE 20% (ORAJEL) 11.9 GM TUBE MT PRN (13:16)
[2020-09-21] MEDS: AMITRIPTYLINE HCL 25 MG TAB PO SCH (20:04)
[2020-09-22] MEDS: HEPARIN SOD 5,000 UNIT/0.5 ML VIAL SQ SCH ×3 (05:34→19:56)
[2020-09-22] MEDS: UMECLIDINIUM/VILANTEROL 62.5/25MCG 7 PUFFS/INHALER INH SCH (08:18)
[2020-09-22] MEDS: ATENOLOL 25 MG TABLET PO SCH (08:19)
[2020-09-22] MEDS: CHOLECALCIFEROL 1,000 UNITS 25 MCG TAB PO SCH (08:19)
[2020-09-22] MEDS: CLOPIDOGREL BISULFATE 75 MG TAB PO SCH (08:19)
[2020-09-22] MEDS: ASPIRIN 81 MG ECTAB PO SCH (08:19)
[2020-09-22] MEDS: SERTRALINE HCL 50 MG TABLET PO SCH (08:19)
[2020-09-22] MEDS: ATORVASTATIN 20 MG TAB PO SCH (08:20)
[2020-09-22] MEDS: AMOXICILLIN/CLAVULANATE 875 MG TAB PO SCH ×2 (08:20→16:14)
[2020-09-22] MEDS: hydroCHLOROthiazide 25 MG TAB PO SCH (08:20)
[2020-09-22] MEDS: PANTOprazole 40 MG TAB PO SCH ×2 (08:20→16:14)
[2020-09-22] MEDS: amLODIPine BESYLATE 5 MG TAB PO SCH (08:20)
[2020-09-22] MEDS: SODIUM CHLORIDE 0.65% NA SOLN 45 ML (OCEAN) SCH ×3 (08:34→19:56)
[2020-09-22] MEDS ORDERED: POTASSIUM CHLORIDE 10 MEQ TABCR PO SCH (09:00)
[2020-09-22 09:42] LABS: BUN Creatinine Ratio 25.5 (10-20); Calcium 10.3 mg/dl (8.5-10.1); Creatinine Clr Calc Pharmacy 55.6 ml/min; Est GFR (African American) 74.5; Est GFR (Non-African American) 64.3; Potassium 5.2 mmol/L (3.5-5.1)
[2020-09-22] MEDS: ACETAMINOPHEN 325 MG TAB PO PRN ×2 (10:34→22:03)
[2020-09-22] MEDS ORDERED: TROLAMINE SALICYLATE 10% CRM 255 APPLN/85 GM TUBE EXT PRN (14:00)
--- NOTE | 2020-09-22 14:17 | Hospitalist Progress Note ---
Date of Service September 22, 2020 Assessment & Plan (1) Vertigo: Presented with acute vertigo and visual changes which have improved since admission. Imaging has not identified any acute stroke, however there was questionable artifact versus stenosis in the distal intracranial portion of the right vertebral artery. She was found to have sinus infection and she clinically had symptoms consistent with this and has been improving on antibiotic therapy. She was also found to have a urinary tract infection, which may have been contributing. Vertigo symptoms have now resolved and she feels improved. Per neurology we will proceed with dual antiplatelet therapy including baby aspirin and clopidogrel x3 weeks followed by clopidogrel long- term in addition to statin therapy as a central event cannot be completely ruled out. She is working with physical therapy who has cleared her as safe to return home however, she still has concerns for a safe transition home. We will continue monitoring patient and plan for discharge to home when she is feeling improved with follow-up with neurology in 4 to 6 weeks. Of note, recent Covid infection may have influenced some of this. (2) Visual changes: Resolved, improved. Outpatient ophthalmologic exam recommended. (3) Hypertension: Chronic, controlled, Continue HCTZ, amlodipine, atenolol. (4) Hypokalemia: Presented with potassium 2.5, given supplementation. Current potassium is 4.7. Supplementation was decreased yesterday to 10 daily, however, K this am was 5.2 and this will need to be stopped. Possibly secondary to diuretic use with HCTZ. As needed Lasix. Follow-up as outpatient. (5) Sleep apnea: Continue nocturnal O2. (6) Urinary tract infection: C&S growing Klebsiella pneumoniae, pansensitive. Received ceftriaxone, transitioned to amox/clav (to treat sinusitis as well). (7) Sinusitis: Experiencing sinus pressure-improved. Significant nasal drainage in the last few weeks as well as a headache. CT scan revealed evidence of sinusitis. She is on treatment with Augmentin and is improving. (8) DVT prophylaxis: SQ heparin. Ambulate. Full Code Dispo-to home when she feels comfortable, likely in am. Kristin Anderson DO [facility] Hospitalist Admission and Anticipated Discharge Date Admission Date: September 18, 2020 Subjective 75 yo F with stroke like symptoms including nausea, vomiting, acute vertigo and feelings of severe lightheadedness. -vertigo has resolved -ambulating this morning with walker, and feeling better overall -mouth ulcer feels better -forearm muscle pain Review of Systems Review of Systems: All systems reviewed & are unremarkable except as noted in Subjective Physical Exam Physical Exam: CONSTITUTIONAL: WNWD, vitals as above, generally well- appearing EYES: normal conjunctivae, no scleral icterus ENT: external ear and nose normal, oropharynx clear, edentulous NECK: trachea midline RESPIRATORY: clear to auscultation bilaterally, no crackles, rales or wheezes, normal respiratory effort CARDIOVASCULAR: regular rate and rhythm, S1 and 2 heard without murmurs, gallops or rubs, no JVD, no peripheral edema GASTROINTESTINAL: normal bowel sounds, soft, nontender, nondistended MUSCULOSKELETAL: strength 5/5 throughout, head is normocephalic and atraumatic SKIN: warm and dry NEUROLOGIC: CN 2-12 grossly intact, no sensory deficit, normal cognition, normal speech, no tremor PSYCHIATRIC: alert cooperative and oriented to person, place and time. Results & Data Results & Data ([facility]) Vital Signs (Past 12 Hours) Vital Signs Temp Pulse Resp BP Pulse Ox 09/22/20 10:56 36.7 C 62 18 139/84 09/22/20 07:02 36.7 C 64 18 140/76 95 09/22/20 03:46 36.8 C 68 18 130/84 97 Laboratory Results [facility] 09/22/20 08:33 Sodium 136 Potassium 5.2 H Chloride 103 Carbon Dioxide 31 BUN 22 H Creatinine 0.87 Glucose 120 H Calcium 10.3 H D Medications Administered Current Inpatient Medications Acetaminophen (Acetaminophen 325 Mg Tab) 650 mg PO Q4H PRN PRN Reason: pain or fever Stop: 10/22/20 10:15 Last Admin: 09/22/20 10:34 Dose: 650 mg Documented by: Albuterol (Albuterol Hfa 8 Gm Inhaler) 2 puffs INH Q6H PRN PRN Reason: Wheezing or shortness of breath Stop: 10/18/20 22:49 Albuterol (Albut/Ipratrop 3mg/0.5mg Neb 3 Ml Vial) 3 ml INH Q4H PRN PRN Reason: wheezing Stop: 10/18/20 22:49 Amitriptyline HCl (Amitriptyline Hcl 25 Mg Tab) 25 mg PO HS [facility] Stop: 10/18/20 22:49 Last Admin: 09/21/20 20:04 Dose: 25 mg Documented by: Amlodipine Besylate (Amlodipine Besylate 5 Mg Tab) 2.5 mg PO [facility] Stop: 10/18/20 22:49 Last Admin: 09/22/20 08:20 Dose: 2.5 mg Documented by: Amoxicillin/Clavulanate Potassium (Amoxicillin/Cl[facility]ulanate 875 Mg Tab) [facility]: 10/01/20 07:59 Last Admin: 09/22/20 08:20 Dose: 1 tab Documented by: Aspirin (Aspirin 81 Mg Ectab) 81 mg PO [facility] Stop: 10/19/20 08:59 Last Admin: 09/22/20 08:19 Dose: 81 mg Documented by: Atenolol (Atenolol 25 Mg Tablet) 25 mg PO [facility] Stop: 10/19/20 08:59 Last Admin: 09/22/20 08:19 Dose: 25 mg Documented by: Atorvastatin Calcium (Atorvastatin 20 Mg Tab) 20 mg PO [facility] Stop: 10/18/20 22:49 Last Admin: 09/22/20 08:20 Dose: 20 mg Documented by: Benzocaine (Benzocaine 20% (Orajel) 11.9 Gm Tube) 1 appln MT TID PRN PRN Reason: Pain Stop: 10/21/20 13:15 Clopidogrel Bisulfate (Clopidogrel Bisulfate 75 Mg Tab) 75 mg PO [facility] Stop: 10/19/20 08:59 Last Admin: 09/22/20 08:19 Dose: 75 mg Documented by: Dicyclomine HCl (Dicyclomine Hcl 10 Mg Cap) 10 mg PO Q4 PRN PRN Reason: Abdominal Discomfort Stop: 10/18/20 22:49 Fluticasone Propionate (Fluticasone Propionate Na Spr 16 Gm Btl) 1 sprays NA DAILY PRN PRN Reason: nasal congestion Stop: 10/18/20 22:49 Furosemide (Furosemide 20 Mg Tab) 20 mg PO DAILY PRN PRN Reason: swelling Stop: 10/18/20 22:49 Heparin Sodium (Porcine) (Heparin Sod 5,000 Unit/0.5 Ml Vial) 5,000 units SQ Q8 [facility] Stop: 10/18/20 22:49 Last Admin: 09/22/20 05:34 Dose: 5,000 units Documented by: Hydrochlorothiazide (Hydrochlorothiazide 25 Mg Tab) 25 mg PO QAM [facility] Stop: 10/19/20 08:59 Last Admin: 09/22/20 08:20 Dose: 25 mg Documented by: Meclizine HCl (Meclizine Hcl 25 Mg Tab) 25 mg PO Q6 PRN PRN Reason: Dizziness Or Vertigo Stop: 10/18/20 23:06 Nystatin (Nystatin Powder 15gm Btl) 1 appln EXT TID PRN PRN Reason: Skin Irritation Stop: 10/18/20 22:49 Last Admin: 09/22/20 08:19 Dose: 1 appln Documented by: Ondansetron HCl (Ondansetron 4 Mg Od Tab) 4 mg PO Q6H PRN PRN Reason: nausea and vomiting Stop: 10/18/20 23:03 Last Admin: 09/21/20 02:42 Dose: 4 mg Documented by: Pantoprazole Sodium (Pantoprazole 40 Mg Tab) 40 mg PO BIDM [facility] Stop: 10/19/20 07:59 Last Admin: 09/22/20 08:20 Dose: 40 mg Documented by: Potassium Chloride (Potassium Chloride 10 Meq Tabcr) 10 meq PO DAILY [facility] Stop: 10/22/20 08:59 Last Admin: 09/22/20 08:19 Dose: 10 meq Documented by: Psyllium Hydrophilic Mucilloid (Psyllium 58.6% Powder Packet) 1 pkt PO DAILY PRN PRN Reason: Constipation Stop: 10/18/20 23:03 Sertraline HCl (Sertraline Hcl 50 Mg Tablet) [facility]: 10/18/20 22:49 Last Admin: 09/22/20 08:19 Dose: 50 mg Documented by: Sodium Chloride (Sodium Chloride 0.65% Na Soln 45 Ml ([place])) 2 sprays NA TID [facility] Stop: 10/21/20 08:59 Last Admin: 09/22/20 08:34 Dose: 2 sprays Documented by: Trolamine Salicylate (Trolamine Salicylate 10% Crm 255 Appln/85 Gm Tube) 1 appln EXT QID PRN PRN Reason: muscle aches Stop: 10/22/20 13:59 Umeclidinium/Vilanterol (Umeclidinium/Vilanterol 62.5/25mcg 7 Puffs/Inhaler) 1 puffs INH DAILY [facility] Stop: 10/19/20 08:59 Last Admin: 09/22/20 08:18 Dose: 1 puffs Documented by: Vitamin D (Cholecalciferol 1,000 Units 25 Mcg Tab) 2,000 units PO QAM [facility] Stop: 10/19/20 08:59 Last Admin: 09/22/20 08:19 Dose: 2,000 units Documented by:
[2020-09-22] MEDS: AMITRIPTYLINE HCL 25 MG TAB PO SCH (19:56)
[2020-09-23] MEDS ORDERED: fentaNYL citrate 100 MCG/2 ML VIAL ONE (00:26)
[2020-09-23] MEDS: ACETAMINOPHEN 325 MG TAB PO PRN ×3 (03:14→15:02)
[2020-09-23] MEDS: HEPARIN SOD 5,000 UNIT/0.5 ML VIAL SQ SCH ×2 (05:00→13:19)
[2020-09-23] MEDS: CHOLECALCIFEROL 1,000 UNITS 25 MCG TAB PO SCH (08:11)
[2020-09-23] MEDS: SODIUM CHLORIDE 0.65% NA SOLN 45 ML (OCEAN) SCH ×2 (08:11→13:19)
[2020-09-23] MEDS: SERTRALINE HCL 50 MG TABLET PO SCH (08:11)
[2020-09-23] MEDS: UMECLIDINIUM/VILANTEROL 62.5/25MCG 7 PUFFS/INHALER INH SCH (08:11)
[2020-09-23] MEDS: hydroCHLOROthiazide 25 MG TAB PO SCH (08:12)
[2020-09-23] MEDS: CLOPIDOGREL BISULFATE 75 MG TAB PO SCH (08:12)
[2020-09-23] MEDS: PANTOprazole 40 MG TAB PO SCH (08:12)
[2020-09-23] MEDS: AMOXICILLIN/CLAVULANATE 875 MG TAB PO SCH (08:12)
[2020-09-23] MEDS: ASPIRIN 81 MG ECTAB PO SCH (08:12)
[2020-09-23] MEDS: amLODIPine BESYLATE 5 MG TAB PO SCH (08:12)
[2020-09-23] MEDS: ATENOLOL 25 MG TABLET PO SCH (08:12)
[2020-09-23] MEDS: ATORVASTATIN 20 MG TAB PO SCH (08:12)
[2020-09-23 10:12] LABS: BUN Creatinine Ratio 24.1 (10-20); Calcium 9.9 mg/dl (8.5-10.1); Creatinine Clr Calc Pharmacy 47.9 ml/min; Est GFR (African American) 62.2; Est GFR (Non-African American) 53.7; Potassium 4.7 mmol/L (3.5-5.1)
--- NOTE | 2020-09-23 14:48 | Discharge Summary ---
Date of Service September 23, 2020 Admission HPI Per Admitting Provider 75-year-old female with a past medical history of hyperlipidemia, sleep apnea, COPD, GERD, obesity, arthritis, allergic rhinitis, hypertension, and irritable bowel syndrome presents today with dizziness, nausea, and vomiting. She also noted visual changes today as well in her left eye. She said she was taking a shower when she got out of the shower she was profoundly dizzy with visual changes in the left eye. She was diagnosed with Covid over a month ago and she was not on oxygen prior to Covid but she has only been able to wean herself down to 2 L. The ER consulted teleneurology regarding her service posterior circulation event and recommended MRI, MRA of the head and neck as well. We also recommended starting aspirin Plavix and Lipitor. CAT scan revealed an acute on chronic sinusitis I saw her in the ER she says she feels little bit better but she says she does not want an MRI but ambulated try to sedate her for an MRI which she will try to do. Admission Exam Per Admitting Provider Physical Exam Gen-AAO x 3, NAD, Afebrile, obese Head-NCAT, EOMI, PERRLA, Anicteric Sclera, No Posterior Pharyngeal Erythema Neck-Supple, No JVD, No Thyromegaly, No Masses, No LAD, No Bruits Lungs-Clear to Auscultation Bilaterally, No Rales, No Rhonchi, No Wheezing, No Crepitus Chest-No S4, +S1, +S2, No S3, No Murmurs, No Rubs, No Gallops, No Ectopy Abdomen-Soft, Bowel Sounds Present, Non Tender, Non Distended, No Hepatomegaly, No Splenomegaly, No Palpable Masses, No Rebound, No Rigidity, No Guarding Musculoskeletal-Full Range of Motion Bilaterally, No CVAT Extremities-No Cyanosis, No Clubbing, No Edema Nuero-Cranial Nerves II-XII grossly intact, Motor WNL, DTRs WNL, Strength WNL, Non Focal Psych-Normal Mood Principal Diagnosis Vertigo Visual changes Hypokalemia Urinary tract infection Sinusitis Discharge Exam CONSTITUTIONAL: WNWD, vitals as above, generally well-appearing EYES: normal conjunctivae, no scleral icterus ENT: external ear and nose normal, oropharynx clear, edentulous NECK: trachea midline RESPIRATORY: clear to auscultation bilaterally, no crackles, rales or wheezes, normal respiratory effort CARDIOVASCULAR: regular rate and rhythm, S1 and 2 heard without murmurs, gallops or rubs, no JVD, no peripheral edema GASTROINTESTINAL: normal bowel sounds, soft, nontender, nondistended MUSCULOSKELETAL: strength 5/5 throughout, head is normocephalic and atraumatic SKIN: warm and dry NEUROLOGIC: CN 2-12 grossly intact, no sensory deficit, normal cognition, normal speech, no tremor PSYCHIATRIC: alert cooperative and oriented to person, place and time. Discharge Data Allergies Allergy/AdvReac Type Severity Reaction Status Date / Time adhesive Allergy Intermediate RASH Verified 09/18/20 17:17 ibuprofen Allergy Intermediate RASH Verified 09/18/20 17:17 Iodinated Contrast Media Allergy Intermediate HIVES, Verified 09/18/20 17:17 EYES SWELL SHUT latex Allergy Intermediate RASH Verified 09/18/20 17:17 naproxen Allergy Intermediate SWELLING, Verified 09/18/20 17:17 RASH, HIVES Consultations 09/18/20 19:10 ED Decision to Admit Stat 09/18/20 22:50 Consult Neurology Routine Ordered Studies 09/18/20 16:03 CT head/brain wo con Stat 09/19/20 00:00 MR angio head wo con Routine MR angio neck wo/w con Stat MR brain wo con Routine Hospital Course (1) Vertigo: Presented with acute vertigo and visual changes. Imaging has not identified any acute stroke, however there was questionable artifact versus stenosis in the distal intracranial portion of the right vertebral artery. She was found to have sinus infection and she clinically had symptoms consistent with this and has been improving on antibiotic therapy. She was also found to have a urinary tract infection, which may have been also contributing to general decline or weakness. Vertigo symptoms resolved with antibiotic therapy and some time. Per neurology we will proceed with dual antiplatelet therapy including baby aspirin and clopidogrel x3 weeks followed by clopidogrel long-term in addition to statin therapy as a central event could not be completely ruled out. She stayed an extra couple of days in the hospital and continued to work with PT and OT with resolution of symptoms. Follow-up with neurology in 4 to 6 weeks. Of note, it is questionable whether or not her recent Covid infection may have influenced some of this, however, also likely that with her ongoing UTI and acute sinusitis were the inciters of the vertigo. An outpatient ophthalmologic examination was recommended to investigate further any blurry vision issues. She verbalized understanding with intent to comply. (2) Visual changes: (3) Hypokalemia: (4) Urinary tract infection: (5) Sinusitis: Total Time Total Time Spent Total Time Spent (In Minutes): 60 Total Time Includes: Examination of the Patient, Discharge Planning, Medication Reconciliation and Communication With Other Providers Discharge Plan Discharge Items Patient Disposition: Home - Home Health Services Reason For Visit: CVA Discharge Diagnosis: Vertigo Visual changes Hypokalemia Urinary tract infection Sinusitis Condition on Discharge: Good Activity: Resume your previous activity Non-emergency contact: Primary Care Provider Call non-emergency contact if: you have any medication questions, your symptoms worsen, your pain is not controlled, your pain is worsening, your pain is unusual for you, your pain is concerning for you and you have a fever Follow-up/Referrals: Yariel Cardoza MD [Primary Care Provider] - (Date & Time 09/28/2020 11:20 AM Provider Jade Castillo MD Department Internal Medicine [facility] ) Diet: Heart Healthy Addtl Attending Provider Instructions: Please take all medications as instructed on discharge list below. Please follow-up with your primary care doctor within 1 week of hospital discharge to ensure you are still doing well and handling any new medications without issue. Please continue taking Plavix 75 mg daily and aspirin 81 mg daily x21 days, then Plavix alone for life. Please follow-up with [facility] neurology as outpatient in 4 to 6 weeks with Ashley Birmingham PA-C It was a pleasure taking care of you! Please call if you have any questions or problems. You can reach a [facility] hospitalist on duty at [facility] 24 hours a day by calling [phone]. Take care of yourself. Kristin Anderson, [facility] Hospitalist Pending Studies at Discharge: No Stand-Alone Forms: My [facility] Medications and DC Order Prescriptions: New amoxicillin-pot clavulanate [Augmentin] 875-125 mg Tablet 1 tab PO BIDM Qty: 6 RF: 0 clopidogrel 75 mg Tablet 75 mg PO QAM Qty: 30 RF: 1 atorvastatin [Lipitor] 40 mg tablet 40 mg PO DAILY Qty: 30 RF: 1 Continued budesonide 0.5 mg/2 mL suspension for nebulization 2 ml INH BID Qty: 120 RF: 11 albuterol sulfate 90 mcg/actuation HFA aerosol inhaler 2 puff INHALATION Q6H PRN (Reason: Wheezing or shortness of breath) Qty: 18 RF: 5 ipratropium-albuterol 0.5 mg-3 mg(2.5 mg base)/3 mL solution for nebulization 3 ml INH Q4H PRN (Reason: wheezing) Qty: 360 RF: 5 dicyclomine 10 mg Capsule 10 mg PO Q4 PRN (Reason: Abdominal Discomfort) RF: 0 amlodipine 2.5 mg Tablet 2.5 mg PO QAM RF: 0 sertraline 50 mg Tablet 50 mg PO QAM RF: 0 cholecalciferol (vitamin D3) [Vitamin D3] 2,000 unit Capsule 2,000 unit PO QAM RF: 0 amitriptyline 25 mg tablet 25 mg PO HS RF: 0 furosemide 20 mg tablet 20 mg PO DAILY PRN (Reason: swelling) RF: 0 nystatin 100,000 unit/gram powder 1 applic TOPICAL TID PRN (Reason: Skin Irritation) RF: 0 atenolol 25 mg tablet 25 mg PO QAM RF: 0 potassium chloride 10 mEq tablet extended release 10 meq PO QAM RF: 0 meclizine 25 mg tablet 25 mg PO Q6 PRN (Reason: Dizziness Or Vertigo) RF: 0 omeprazole 20 mg capsule,delayed release(DR/EC) 20 mg PO BIDM RF: 0 aspirin 81 mg tablet,chewable 81 mg PO QAM RF: 0 hydrochlorothiazide 25 mg tablet 25 mg PO QAM RF: 0 fluticasone propionate [Flonase Allergy Relief] 50 mcg/actuation spray,suspension 1 sprays INTNAS DAILY PRN (Reason: nasal congestion) Qty: 9.9 RF: 0 ondansetron 4 mg tablet,disintegrating 4 mg PO Q6H PRN (Reason: nausea and vomiting) Qty: 14 RF: 0 psyllium Packet 1 packet PO DAILY PRN (Reason: Constipation) RF: 0 Anoro Ellipta 62.5-25 mcg/actuation Blister With Device 1 inh INHALATION DAILY RF: 0 Discontinued atorvastatin 20 mg tablet 20 mg PO QAM RF: 0 Discharge Orders: Discharge Order (Routine); Ordered 09/23/20 Ordered By: Kristin Anderson Admission Data Admit Date/Time: 09/18/20 19:54 Attending Provider: Kristin Anderson Admit Provider: Vik Huston Primary Care Provider: Yariel Cardoza Other Providers: Ashley Wallace Other Interventions: Discharge Summary Assessment (RN) Last Done: 09/23/20 15:33
--- NOTE | 2020-11-22 09:24 | Communication Note ---
Date of Service: November 22, 2020 Received call from the staff to call patient regarding some prescription issued. I called the patient and she says she was having issues with the Plavix. However patient was discharged in September. Call the pharmacy at [facility]. Her family doctor was not responding. As per last discharge summary patient is supposed to be on Plavix lifelong. I requested for 30 days of Plavix and she needs to follow-up with her PCP for further refills.
== END 2020-09-23 16:30 | disposition home health service (06) | DRG 690 ==
LOC: ED 15:38 → SUATTDRO 19:54 → 2N 19:54

== ENCOUNTER 2021-06-28 05:48 | Inpatient (IN) ==
[2021-06-28] MEDS ORDERED: SODIUM CHLORIDE 0.9% 500 ML IV STA (06:42)
[2021-06-28] MEDS ORDERED: ONDANSETRON INJ 2 MG/ML 2 ML VIAL IV STA (06:42)
--- NOTE | 2021-06-28 06:49 | Emergency Department Note ---
History of Present Illness General Chief complaint: Abdominal Pain Stated complaint: ABD,NAUSEA Time Seen by Provider: 06/28/21 06:32 Source: patient Mode of arrival: EMS Limitations: no limitations History of Present Illness Maximum Pain Intensity: 4 This patient comes in with nausea and abdominal bloating. She says she has had nausea for weeks. She had a colonoscopy done on the by Dr. Rocha and said she had hemorrhoids but she said everything else looks okay. She did not have any polyps other has a history of. Last 2 years she has had bloating and constipation. She said that they recently told her to stop MiraLAX and start Metamucil. Today it just seemed like it was worse. She does take dicyclomine. She says her pain started in the lower than it was upper and just goes all over. She feels a lot better at present. She still nauseated. No bowel movement since yesterday. No fever chills. No chest pain. She is on oxygen at home for COPD and has had mild increase shortness of breath of the last week or so but no cough. She says she was Covid tested negative on the . No blood or melena stool. No urinary symptoms such as dysuria or hematuria. No fall or trauma no vomiting. She feels generally weak in her legs but nothing focal. Home Medications Medication Instructions Recorded Confirmed Type atenolol 25 mg tablet 25 mg PO QAM 08/17/18 06/28/21 History hydrochlorothiazide 25 mg tablet 25 mg PO QAM 08/17/18 06/28/21 History meclizine 25 mg tablet 25 mg PO Q6 PRN 08/17/18 06/28/21 History omeprazole 20 mg capsule,delayed 20 mg PO BIDM 08/17/18 06/28/21 History release potassium chloride 10 mEq 10 meq PO QAM 08/17/18 06/28/21 History tablet,extended release dicyclomine 10 mg capsule 10 mg PO Q4 PRN 04/03/19 06/28/21 History cholecalciferol (vitamin D3) 50 2,000 unit PO QAM 06/09/19 06/28/21 History mcg (2,000 unit) capsule (Vitamin D3) ondansetron 4 mg disintegrating 4 mg PO Q6H PRN #14 tab 08/09/19 06/28/21 Rx tablet nystatin 100,000 unit/gram topical 1 applic TOPICAL TID PRN 05/09/20 06/28/21 History powder clopidogrel 75 mg tablet 75 mg PO QAM #30 tab 09/23/20 06/28/21 Rx albuterol sulfate 90 mcg/actuation 2 puff INHALATION Q6H PRN #18 gm 12/13/20 06/28/21 Rx aerosol inhaler budesonide 0.5 mg/2 mL suspension 0.5 mg INH BID #120 ml 12/13/20 06/28/21 Rx for nebulization ipratropium 0.5 mg-albuterol 3 mg 3 ml INH Q4H PRN #360 ml 12/13/20 06/28/21 Rx (2.5 mg base)/3 mL nebulization soln atorvastatin 40 mg tablet (Lipitor) 40 mg PO QAM 06/05/21 06/28/21 History docusate sodium 100 mg capsule 100 mg PO Q OTHER DAY 06/05/21 06/28/21 History (Colace) umeclidinium 62.5 mcg-vilanterol 1 inh INHALATION QAM 06/05/21 06/28/21 History 25 mcg/actuation powdr for inhalation (Anoro Ellipta) losartan 50 mg tablet 50 mg PO DAILY 06/28/21 06/28/21 History Allergies Allergy/AdvReac Type Severity Reaction Status Date / Time adhesive Allergy Intermediate RASH Verified 06/15/21 07:53 ibuprofen Allergy Intermediate RASH Verified 06/15/21 07:53 Iodinated Contrast Media Allergy Intermediate HIVES, Verified 06/15/21 07:53 EYES SWELL SHUT latex Allergy Intermediate RASH Verified 06/15/21 07:53 naproxen Allergy Intermediate SWELLING, Verified 06/15/21 07:53 RASH, HIVES Past Med/Surg History Medical History Anxiety and depression Chronic obstructive pulmonary disease nebulizer/inhalers daily and prn///2L n/c at HS/PRN Diverticulitis of colon Dysconjugate gaze History of COVID-19 diagnosed 08/2020 @ [facility]--cough, headache, fatigue--no issues now Hypokalemia Hypomagnesemia Kidney stones Multiple pulmonary nodules Nausea & vomiting On anticoagulant therapy plavix daily On home oxygen therapy 2L N/C at hs and prn Oral candidiasis Osteoarthritis Sciatic leg pain right Transient ischemic attack (TIA) (~09/18/20) per pt had mini stroke and started on plavix daily Tubulovillous adenoma of colon Urge incontinence of urine Vitamin D deficiency Surgical History H/O esophagogastroduodenoscopy "repair zenkers diverticulum" History of bilateral breast reduction surgery History of bunionectomy RT History of cataract surgery RT/LEFT History of cholecystectomy Lap cholecystectomy: 06/04/16: Grade view 2, MAC#3, ETT 7.0 at [facility] History of colonoscopy History of cystoscopy (~07/24/19) History of dilatation and curettage History of removal of cyst left hand History of right breast biopsy x2--benign History of surgical removal of right nipple History of tonsillectomy and adenoidectomy History of tooth extraction all teeth History of total hysterectomy History of ureter stent Status post biopsy of thyroid gland benign Family History Brother Family history of diabetes mellitus Other No family history of adverse response to anesthesia Denies family history of Crohn's disease Colorectal cancer Ulcerative colitis Social History Smoking Status: Former smoker Tobacco Type: Cigarettes Second Hand Exposure: Yes (mom smoked); Hx Alcohol Use: No Hx Substance Use: No Preferred Language: Upper Sorbian Communication Ability: Effective Visual Impairment: No Limitations 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 Beliefs That Will Affect Care: None marital status: Current Living Situation: Spouse and Family Current Living Situation Comment: Lives with , daughter and 2 grandsons current occupational status: retired Feels Safe at Home: Yes Assistive Devices: Cane, Denture - Upper, Denture - Lower, Glasses, Nebulizer and Oxygen - at Night Review of Systems A total of 10 systems reviewed and were otherwise negative Physical Exam Vital Signs Vital Signs - 24 hr 06/28/21 05:54 06/28/21 06:00 06/28/21 06:13 Temperature 36.8 C Temperature Source Oral Pulse Rate 68 68 Pulse Rate [Finger] 64 Pulse Rate [Recovery] Pulse Rate from SpO2 Sensor 69 68 Pulse Rhythm [Finger] Pulse Strength [Finger] Respiratory Rate 19 27 H Respiratory Rate [Recovery] Respiratory Effort / Characteristics Respiratory Depth Respiratory Pattern Blood Pressure 171/88 H 177/111 H Blood Pressure [Left Arm] 177/111 H Blood Pressure Mean 115 133 Blood Pressure Mean [Left Arm] 133 Blood Pressure Position [Left Arm] Sitting Pulse Oximetry 91 93 95 Pulse Oximetry [Recovery] Oxygen Delivery Method Nasal Cannula Oxygen Flow Rate 2 Sepsis Recent Fever Within 48 Hours Sepsis New/Unexplained Change in Mental Status Sepsis Action Taken by Nursing 06/28/21 06:17 06/28/21 06:46 06/28/21 07:02 Temperature 36.8 C Temperature Source Oral Pulse Rate 65 64 65 Pulse Rate [Finger] Pulse Rate [Recovery] Pulse Rate from SpO2 Sensor 62 Pulse Rhythm [Finger] Pulse Strength [Finger] Respiratory Rate 23 Respiratory Rate [Recovery] Respiratory Effort / Characteristics Respiratory Depth Respiratory Pattern Blood Pressure 177/111 H Blood Pressure [Left Arm] Blood Pressure Mean 133 Blood Pressure Mean [Left Arm] Blood Pressure Position [Left Arm] Pulse Oximetry 94 96 99 Pulse Oximetry [Recovery] Oxygen Delivery Method Nasal Cannula Nasal Cannula Oxygen Flow Rate 2 2 Sepsis Recent Fever Within 48 Hours No Sepsis New/Unexplained Change in Mental Status N/A Sepsis Action Taken by Nursing No Action Required 06/28/21 07:30 06/28/21 08:00 06/28/21 09:48 Temperature Temperature Source Pulse Rate 61 Pulse Rate [Finger] Pulse Rate [Recovery] 68 Pulse Rate from SpO2 Sensor 66 61 Pulse Rhythm [Finger] Pulse Strength [Finger] Respiratory Rate 27 H 22 Respiratory Rate [Recovery] 22 Respiratory Effort / Characteristics Respiratory Depth Respiratory Pattern Blood Pressure Blood Pressure [Left Arm] Blood Pressure Mean Blood Pressure Mean [Left Arm] Blood Pressure Position [Left Arm] Pulse Oximetry 97 93 Pulse Oximetry [Recovery] 75 L Oxygen Delivery Method Room Air Oxygen Flow Rate Sepsis Recent Fever Within 48 Hours Sepsis New/Unexplained Change in Mental Status Sepsis Action Taken by Nursing 06/28/21 10:00 06/28/21 12:00 Temperature Temperature Source Pulse Rate Pulse Rate [Finger] 74 55 L Pulse Rate [Recovery] Pulse Rate from SpO2 Sensor Pulse Rhythm [Finger] Regular Regular Pulse Strength [Finger] Normal Normal Respiratory Rate 18 16 Respiratory Rate [Recovery] Respiratory Effort / Characteristics Non-Labored Non-Labored Respiratory Depth Normal Normal Respiratory Pattern Regular Regular Blood Pressure Blood Pressure [Left Arm] 174/92 H 171/99 H Blood Pressure Mean Blood Pressure Mean [Left Arm] 119 123 Blood Pressure Position [Left Arm] Lying Lying Pulse Oximetry 95 98 Pulse Oximetry [Recovery] Oxygen Delivery Method Nasal Cannula Nasal Cannula Oxygen Flow Rate 2 2 Sepsis Recent Fever Within 48 Hours Sepsis New/Unexplained Change in Mental Status Sepsis Action Taken by Nursing General: Well developed well nourished older female who in no acute distress, breathing comfortably on supplemental oxygen nasal cannula. Normal speech HEENT: Normal cephalic atraumatic. Pupils are equal round and reactive to light. Extraocular movements are intact. Oropharynx is pink with moist mucous membranes. No swelling of the mouth lips or tongue. Neck: Supple with a midline trachea. No meningeal signs or stiffness, no JVD or bruits. No Stridor. Chest: Clear to auscultation bilaterally. No wheezes or rhonchi. No increased work of breathing. Heart: Regular rate and rhythm without murmurs or gallops. Abdomen: Soft, minimally tender, she appears bloated and mildly distended without rebound guarding or rigidity. Extremities: No cyanosis clubbing or edema. No calf tenderness or assymetry Spine/Back. Non tender to palpation. No CVA tenderness Skin: Good turgor without rashes. Neurologic exam: Cranial nerves two through 12 are intact. Motor and sensation are intact and symmetrical throughout. Course Administered Medications Sodium Chloride (Nss) 500 mls @ 125 mls/hr IV .Q4H ELIEZER Stop: 07/28/21 09:44 Last Infusion: 06/28/21 14:10 Dose: 0 mls/hr Documented by: [id number] Admin: 06/28/21 10:03 Dose: 125 mls/hr Documented by: [id number] Discontinued Medications Sodium Chloride (Nss) 500 mls @ 999 mls/hr IV .Q31M STA Stop: 06/28/21 07:12 Last Infusion: 06/28/21 07:30 Dose: 0 mls/hr Documented by: [id number] Admin: 06/28/21 06:55 Dose: 999 mls/hr Documented by: [id number] Acetaminophen (Ofirmev) 1,000 mg in 100 mls @ 400 mls/hr IV NOW STA Stop: 06/28/21 09:49 Last Infusion: 06/28/21 10:39 Dose: 0 mls/hr Documented by: [id number] Admin: 06/28/21 10:02 Dose: 400 mls/hr Documented by: [id number] Ondansetron HCl (Ondansetron Inj 2 Mg/Ml 2 Ml Vial) 4 mg IV NOW STA Stop: 06/28/21 06:43 Last Admin: 06/28/21 06:54 Dose: 4 mg Documented by: [id number] Medical Decision Making Differential Diagnosis Bowel obstruction, constipation, diverticulitis, infection, aneurysm, electrolyte or metabolic abnormality Medical Records Attestation: I reviewed the patient's medical records. Home Medications Current Medication List: was personally reviewed by me Laboratory Data Attestation: I reviewed the patient's lab results. Result diagrams: 06/28/21 Unknown 06/28/21 Unknown Lab Results 06/28/21 06/28/21 06/28/21 Range/Units 09:08 09:08 Unknown WBC 7.63 (4.8-10.8) K/uL RBC 4.69 (4.2-5.4) M/uL Hgb 14.0 (12.0-16.0) g/dL Hct 44.9 (37-47) % MCV 95.7 (80-100) fL MCH 29.9 (25-34) pg MCHC 31.2 L (32-36) g/dL RDW Std Deviation 49.3 H (36.4-46.3) fL RDW Coeff of Enoc 14.0 (11.5-14.5) % Plt Count 179 (130-400) K/uL MPV 9.9 (7.4-10.4) fL Immature Gran % (Auto) 0.4 % Neut % (Auto) 69.4 % Lymph % (Auto) 16.6 % [place] % (Auto) 10.7 % Eos % (Auto) 2.6 % Baso % (Auto) 0.3 % Neut # (Auto) 5.29 (1.4-6.5) K/uL Lymph # (Auto) 1.27 (1.2-3.4) K/uL [place] # (Auto) 0.82 H (0.11-0.59) K/uL Eos # (Auto) 0.20 (0-0.5) K/uL Baso # (Auto) 0.02 (0-0.2) K/uL Immature Gran # (Auto) 0.03 H (0.00-0.02) K/uL Sodium (136-145) mmol/L Potassium (3.5-5.1) mmol/L Chloride (98-107) mmol/L Carbon Dioxide (21-32) mmol/L Anion Gap (3-11) BUN (7-18) mg/dl Creatinine (0.6-1.2) mg/dl Est Cr Clr Drug Dosing Est GFR ( Amer) ml/min Est GFR (Non-Af Amer) ml/min BUN/Creatinine Ratio (10-20) Glucose (70-99) mg/dl Calcium (8.5-10.1) mg/dl Total Bilirubin (0.2-1) mg/dl AST (15-37) U/L ALT (12-78) U/L Alkaline Phosphatase (45-117) U/L Troponin I (0-0.045) ng/ml Total Protein (6.4-8.2) gm/dl Albumin (3.4-5.0) gm/dl Globulin (2.5-4.0) gm/dl Albumin/Globulin Ratio (0.9-2) Lipase (73-393) U/L COVID-19 Eval Order Covid19 at [facility] SARS-CoV-2 (PCR) NEGATIVE (Negative) 06/28/21 Range/Units Unknown WBC (4.8-10.8) K/uL RBC (4.2-5.4) M/uL Hgb (12.0-16.0) g/dL Hct (37-47) % MCV (80-100) fL MCH (25-34) pg MCHC (32-36) g/dL RDW Std Deviation (36.4-46.3) fL RDW Coeff of Enoc (11.5-14.5) % Plt Count (130-400) K/uL MPV (7.4-10.4) fL Immature Gran % (Auto) % Neut % (Auto) % Lymph % (Auto) % [place] % (Auto) % Eos % (Auto) % Baso % (Auto) % Neut # (Auto) (1.4-6.5) K/uL Lymph # (Auto) (1.2-3.4) K/uL [place] # (Auto) (0.11-0.59) K/uL Eos # (Auto) (0-0.5) K/uL Baso # (Auto) (0-0.2) K/uL Immature Gran # (Auto) (0.00-0.02) K/uL Sodium 140 (136-145) mmol/L Potassium 4.0 (3.5-5.1) mmol/L Chloride 105 (98-107) mmol/L Carbon Dioxide 30 (21-32) mmol/L Anion Gap 5.0 (3-11) BUN 18 (7-18) mg/dl Creatinine 0.78 (0.6-1.2) mg/dl Est Cr Clr Drug Dosing Not Reportable Est GFR ( Amer) 85.0 ml/min Est GFR (Non-Af Amer) 73.3 ml/min BUN/Creatinine Ratio 23.4 H (10-20) Glucose 108 H (70-99) mg/dl Calcium 9.3 (8.5-10.1) mg/dl Total Bilirubin 0.5 (0.2-1) mg/dl AST 15 (15-37) U/L ALT 21 (12-78) U/L Alkaline Phosphatase 96 (45-117) U/L Troponin I < 0.015 (0-0.045) ng/ml Total Protein 7.0 (6.4-8.2) gm/dl Albumin 3.3 L (3.4-5.0) gm/dl Globulin 3.7 (2.5-4.0) gm/dl Albumin/Globulin Ratio 0.9 (0.9-2) Lipase 99 (73-393) U/L COVID-19 Eval Order SARS-CoV-2 (PCR) (Negative) Imaging Data Attestation: I personally reviewed and interpreted this imaging study as follows: My Impression: Chest x-raycardiomegaly but no acute infiltrate, failure, pneumothorax seen Radiologist's Impression: Abdomen/Pelvis CT 06/28/21 06:42 CT SCAN OF THE ABDOMEN AND PELVIS WITHOUT CONTRAST CLINICAL HISTORY: abd bloating, eval for obst COMPARISON STUDY: May 09, 2020 TECHNIQUE: CT scan of the abdomen and pelvis was performed from the lung bases to the proximal femurs. Images are reviewed in the axial, sagittal, and coronal planes. IV contrast was not administered for this examination. A dose lowering technique was utilized adhering to the principles of ALARA. CT DOSE: 958.42 mGy.cm FINDINGS: Lower chest: Few linear densities at posterior aspect of bilateral lower lobes could represent atelectasis or scarring. Liver: The unenhanced liver is normal in size, contour, and attenuation. There is no intrahepatic biliary ductal dilatation. 2.9 cm hypoattenuating lesion is seen within left lobe of the liver and was also seen during prior study in 2019, this lesion shows fluid attenuation and most likely represent cyst. Gallbladder: Is surgically absent. Spleen: Normal in size and attenuation. Pancreas: Mild fatty replacement of pancreatic parenchyma is seen predominantly within pancreatic head and uncinate process. Adrenal glands: Unremarkable. Kidneys: The unenhanced kidneys are normal in size. Mild prominence of bilateral collecting system is again seen without dilatation of the ureters. Few calculi are seen within bilateral renal pelvises, largest is seen on the left. And measuring 6 mm in size. 1.8 cm cortical cyst is seen at inferior left renal pole. Bowel: Loops of small bowel are nondilated. Appendix shows normal morphology and gas filled. Gaseous dilatation of the large bowel loops up to 6.7 cm. Transitional zone is seen within left hemiabdomen (3/114). Distal colon is collapsed. Peritoneum: There is no intraperitoneal free air or abdominal ascites. Vasculature: Abdominal aorta is normal in caliber with scattered calcifications of its wall. Adenopathy: None. Pelvic viscera: Urinary bladder is adequately filled with urine. Uterus is surgically absent. Skeletal structures: Osteopenia. Minimal degenerative changes of the spine. Vertebral hemangioma is seen within T12, was also visualized during prior. IMPRESSION: 1. High-grade obstruction of the large bowel. Transitional zone is seen within left hemiabdomen. Report will be sent to emergency Department. 2. Bilateral nonobstructive nephrolithiasis. Renal cysts. 3. Stable hypoattenuating lesion within left lobe of the liver, likely cyst. 4. Atherosclerosis. 5. The rest of findings as above. ACT 112: Negative or not required by law. The above report was generated using voice recognition software. It may contain grammatical, syntax or spelling errors. Electronically signed by: Alysia Lora DO 06/28/2021 8:39 AM Chest X-Ray 06/28/21 06:43 XR chest 1V portable INDICATION: MN ^abd pain, copd . TECHNIQUE: Single frontal radiograph of the chest was obtained. Comparison: Comparison is made to chest one view 09/18/2020 FINDINGS: No lines and tubes are seen. The cardiomediastinal silhouette is normal. The lungs are clear. No evidence of pleural effusion or pneumothorax. IMPRESSION: No acute chest disease. ACT 112: Negative or not required by law. Electronically signed by: He Paul M.D. 06/28/2021 8:04 AM ECG Data Attestation: I personally reviewed and interpreted this ECG as follows: Indication: + abdominal pain Rate (beats per minute): 73 Rhythm: + normal sinus ECG Intervals/blocks: + Normal QRS, + Normal QT and + Normal AR ECG Empire: + Normal ECG ST segments: + Normal ST segments ECG Findings: no PACs or no PVCs Comparison ECG Date: from (09/17/21) Change: no significant change MDM Narrative This patient comes in as described above she has had nausea and abdominal bloating. She has no peritonitis. IV access was established gently hydrated with IV normal saline bolus 500 cc. She was given Zofran 4 mg IV. Blood work and urinalysis was ordered as well as a CAT scan of the abdomen EKG and chest x- ray. She was reassessed frequently. She has no white count or fever to suggest infection. She has no significant electrolyte or metabolic abnormalities. Her CAT scan shows a large bowel obstruction with a transition point. I did call and discussed the case with the surgery on-call.Rahat Laura. He feels that she needs to be admitted to medicine with a GI consultation. I then consulted [facility] and Kelin saw the patient in the ED. The patient had minimal nausea no vomiting so she did not need NG tube. She did have a mild headache and was given IV Tylenol. She has been kept n.p.o. and I did start maintenance hourly fluids. Continuous cardiac monitoring: Orders placed EMR for use cardiac monitoring. Upon my interpretation she was noted to be in normal sinus rhythm with a rate of 65 Impression & Plan Large bowel obstruction, Abdominal bloating, Nausea, Lab test negative for COVID-19 virus Discharge Plan Visit Data Chief Complaint: Abdominal Pain Stated Complaint: ABD,NAUSEA ED Provider: Johann Newton Discharge Problem: Large bowel obstruction, Abdominal bloating, Nausea, Lab test negative for COVID-19 virus
[2021-06-28 07:18] LABS: Basophils # (auto) 0.02 K/uL (0-0.2); Basophils % (auto) 0.3 %; Eosinophils % (auto) 2.6 %; Hematocrit (blood only) 44.9 % (37-47); Immature Granulocytes # (auto) 0.03 K/uL (0.00-0.02); Immature Granulocytes % (auto) 0.4 %; Lymphocytes # (auto) 1.27 K/uL (1.2-3.4); Lymphocytes % (auto) 16.6 %; Mean Corpuscular Hemoglobin 29.9 pg (25-34); Mean Corpuscular Hgb Conc 31.2 g/dL (32-36); Mean Corpuscular Volume 95.7 fL (80-100); Mean Platelet Volume 9.9 fL (7.4-10.4); Monocytes # (auto) 0.82 K/uL (0.11-0.59); Monocytes % (auto) 10.7 %; Neutrophils # (auto) 5.29 K/uL (1.4-6.5); Neutrophils % (auto) 69.4 %; Platelet Count 179 K/uL (130-400); RDW Standard Deviation 49.3 fL (36.4-46.3); Red Blood Count 4.69 M/uL (4.2-5.4); White Blood Count 7.63 K/uL (4.8-10.8)
[2021-06-28 07:35] LABS: Alanine Aminotransferase 21 U/L (12-78); Albumin Level 3.3 gm/dl (3.4-5.0); Aspartate Aminotransferase 15 U/L (15-37); BUN Creatinine Ratio 23.4 (10-20); Blood Urea Nitrogen 18 mg/dl (7-18); Calcium 9.3 mg/dl (8.5-10.1); Carbon Dioxide 30 mmol/L (21-32); Chloride 105 mmol/L (98-107); Est GFR (Non-African American) 73.3 ml/min; Glucose 108 mg/dl (70-99); Lipase 99 U/L (73-393); Sodium 140 mmol/L (136-145)
[2021-06-28 07:39] LABS: Albumin Globulin Ratio 0.9 (0.9-2); Alkaline Phosphatase 96 U/L (45-117); Bilirubin,Total 0.5 mg/dl (0.2-1); Globulin 3.7 gm/dl (2.5-4.0); Troponin I < 0.015 ng/ml (0-0.045)
--- NOTE | 2021-06-28 08:06 | XRay Report ---
XR chest 1V portable INDICATION: MN ^abd pain, copd . TECHNIQUE: Single frontal radiograph of the chest was obtained. Comparison: Comparison is made to chest one view 09/18/2020 FINDINGS: No lines and tubes are seen. The cardiomediastinal silhouette is normal. The lungs are clear. No evid ence of pleural effusion or pneumothorax. IMPRESSION: No acute chest disease. ACT 112: Negative or not required by law. Electronically signed by: He Paul M.D. 06/28/2021 8:04 AM
--- NOTE | 2021-06-28 08:41 | CT Scan Report ---
CT SCAN OF THE ABDOMEN AND PELVIS WITHOUT CONTRAST CLINICAL HISTORY: abd bloating, eval for obst COMPARISON STUDY: May 09, 2020 TECHNIQUE: CT scan of the abdomen and pelvis was performed from the lung bases to the proximal femurs . Images are reviewed in the axial, sagittal, and coronal planes. IV contrast was not administered fo r this examination. A dose lowering technique was utilized adhering to the principles of ALARA. CT DOSE: 958.42 mGy.cm FINDINGS: Lower chest: Few linear densities at posterior aspect of bilateral lower lobes could represent atelec tasis or scarring. Liver: The unenhanced liver is normal in size, contour, and attenuation. There is no intrahepatic ricky iary ductal dilatation. 2.9 cm hypoattenuating lesion is seen within left lobe of the liver and was a lso seen during prior study in 2019, this lesion shows fluid attenuation and most likely represent cy st. Gallbladder: Is surgically absent. Spleen: Normal in size and attenuation. Pancreas: Mild fatty replacement of pancreatic parenchyma is seen predominantly within pancreatic hea d and uncinate process. Adrenal glands: Unremarkable. Kidneys: The unenhanced kidneys are normal in size. Mild prominence of bilateral collecting system is again seen without dilatation of the ureters. Few calculi are seen within bilateral renal pelvises, largest is seen on the left. And measuring 6 mm in size. 1.8 cm cortical cyst is seen at inferior left renal pole. Bowel: Loops of small bowel are nondilated. Appendix shows normal morphology and gas filled. Gaseous dilatation of the large bowel loops up to 6.7 cm. Transitional zone is seen within left hemiabdomen ( 3/114). Distal colon is collapsed. Peritoneum: There is no intraperitoneal free air or abdominal ascites. Vasculature: Abdominal aorta is normal in caliber with scattered calcifications of its wall. Adenopathy: None. Pelvic viscera: Urinary bladder is adequately filled with urine. Uterus is surgically absent. Skeletal structures: Osteopenia. Minimal degenerative changes of the spine. Vertebral hemangioma is s een within T12, was also visualized during prior. IMPRESSION: 1. High-grade obstruction of the large bowel. Transitional zone is seen within left hemiabdomen. Rep ort will be sent to emergency Department. 2. Bilateral nonobstructive nephrolithiasis. Renal cysts. 3. Stable hypoattenuating lesion within left lobe of the liver, likely cyst. 4. Atherosclerosis. 5. The rest of findings as above. ACT 112: Negative or not required by law. The above report was generated using voice recognition software. It may contain grammatical, syntax o r spelling errors. Electronically signed by: Alysia Lora DO 06/28/2021 8:39 AM
--- NOTE | 2021-06-28 08:58 | Electrocardiogram Report ---
Test Reason : Blood Pressure : / mmHG Vent. Rate : 073 BPM Atrial Rate : 073 BPM P-R Int : 178 ms QRS Dur : 084 ms QT Int : 392 ms P-R-T Axes : 042 -03 032 degrees QTc Int : 431 ms Poor data quality, interpretation may be adversely affected Normal sinus rhythm Normal ECG When compared with ECG of 18-SEP-2020 15:51, No significant change was found Confirmed by Landon Martines ([id number]) on 06/28/2021 8:57:51 AM Referred By: REFERRED SELF Confirmed By:Landon Martines
[2021-06-28] MEDS ORDERED: ACETAMINOPHEN 1,000 MG/100 ML VIAL IV STA (09:35)
[2021-06-28] MEDS: SODIUM CHLORIDE 0.9% 500 ML IV SCH ×2 (10:03→16:04)
--- NOTE | 2021-06-28 10:49 | History & Physical Report ---
Date of Service June 28, 2021 Assessment & Plan (1) Large bowel obstruction: Plan: - Admit to med surg with tele - GI consulted- discussed with their team -appreciate recs, ordered tap water enema to happen now and serial abdominal exams to assess for improvement - Hx of having c-scope on 06/15/21, normal colon, moderate internal hemorrhoids noted. - hx of abdominal surgeries includes cholecystectomy 2017 and hysterectomy in 1984 -Pain control with Tylenol, Antiemetic with Zofran -NSS at 100 mL/h while n.p.o. -Convert all p.o. medications to IV (2) IBS (irritable bowel syndrome): Plan: -History of such, chronic, as above (3) GERD (gastroesophageal reflux disease): Plan: -Continue omeprazole converted to IV (4) Morbid obesity: Plan: -Diet and exercise to be encouraged throughout hospital stay and upon discharge (5) Sleep apnea: Plan: -Does not use CPAP at night, continue O2 at 2 L via NC, baseline (6) Chronic obstructive pulmonary disease: Plan: -History of such, continue oxygen as above -Continue albuterol inhaler, Anoro Ellipta, nebulizer as needed (7) Hypertension: Plan: - Holding po losartan, atenolol for now - IV lopressor ordered prn, monitor for rebound tachycardia (8) Dyslipidemia: Plan: -Continue statin therapy DVT PPx - teds, scds CODE: Full code Dispo: From home, likely to remain in the hospital x 1-2 days History of Present Illness Primary Care Provider: Yariel Cardoza MD This is a 75-year-old female with past medical history of IBS, GERD, HLD, obesity, sleep apnea, COPD, hx of TIA in Sep 2020 on plavix, and hx of COVID 19 infection in Aug 2020, who recently underwent colonoscopy by Dr. Rocha on 06/15/21. The procedure was tolerated well, impression was internal hemorrhoids which were moderate, examination was otherwise normal and no specimens were collected. She was recommended for 5-year surveillance. Abdominal surgical history includes cholecystectomy 3 years ago as well as hysterectomy in 1984. She presents today with abdominal pain and found to have a large bowel obstruction. She reports that her pain started last evening, and that she last ate supper last night without difficulty. She developed worsening bloating in her abdomen, and last move her bowels yesterday morning but it was a smaller than normal amount. Denies hematochezia, BRBPR, blood on toilet paper. This morning she was passing gas but not anymore. Nausea has been ongoing for many months, and within the past few months she notices a dairy intolerance. Denies any other acute complaints. Allergies Allergy/AdvReac Type Severity Reaction Status Date / Time adhesive Allergy Intermediate RASH Verified 06/15/21 07:53 ibuprofen Allergy Intermediate RASH Verified 06/15/21 07:53 Iodinated Contrast Media Allergy Intermediate HIVES, Verified 06/15/21 07:53 EYES SWELL SHUT latex Allergy Intermediate RASH Verified 06/15/21 07:53 naproxen Allergy Intermediate SWELLING, Verified 06/15/21 07:53 RASH, HIVES Home Medications Medication Instructions Recorded Confirmed Type atenolol 25 mg tablet 25 mg PO QAM 08/17/18 06/28/21 History hydrochlorothiazide 25 mg tablet 25 mg PO QAM 08/17/18 06/28/21 History meclizine 25 mg tablet 25 mg PO Q6 PRN 08/17/18 06/28/21 History omeprazole 20 mg capsule,delayed 20 mg PO BIDM 08/17/18 06/28/21 History release potassium chloride 10 mEq 10 meq PO QAM 08/17/18 06/28/21 History tablet,extended release dicyclomine 10 mg capsule 10 mg PO Q4 PRN 04/03/19 06/28/21 History cholecalciferol (vitamin D3) 50 2,000 unit PO QAM 06/09/19 06/28/21 History mcg (2,000 unit) capsule (Vitamin D3) ondansetron 4 mg disintegrating 4 mg PO Q6H PRN #14 tab 08/09/19 06/28/21 Rx tablet nystatin 100,000 unit/gram topical 1 applic TOPICAL TID PRN 05/09/20 06/28/21 History powder clopidogrel 75 mg tablet 75 mg PO QAM #30 tab 09/23/20 06/28/21 Rx albuterol sulfate 90 mcg/actuation 2 puff INHALATION Q6H PRN #18 gm 12/13/20 06/28/21 Rx aerosol inhaler budesonide 0.5 mg/2 mL suspension 0.5 mg INH BID #120 ml 12/13/20 06/28/21 Rx for nebulization ipratropium 0.5 mg-albuterol 3 mg 3 ml INH Q4H PRN #360 ml 12/13/20 06/28/21 Rx (2.5 mg base)/3 mL nebulization soln atorvastatin 40 mg tablet (Lipitor) 40 mg PO QAM 06/05/21 06/28/21 History docusate sodium 100 mg capsule 100 mg PO Q OTHER DAY 06/05/21 06/28/21 History (Colace) umeclidinium 62.5 mcg-vilanterol 1 inh INHALATION QAM 06/05/21 06/28/21 History 25 mcg/actuation powdr for inhalation (Anoro Ellipta) losartan 50 mg tablet 50 mg PO DAILY 06/28/21 06/28/21 History Past Med/Surg History Medical History Anxiety and depression Chronic obstructive pulmonary disease nebulizer/inhalers daily and prn///2L n/c at HS/PRN Diverticulitis of colon Dysconjugate gaze History of COVID-19 diagnosed 08/2020 @ [facility]--cough, headache, fatigue--no issues now Hypokalemia Hypomagnesemia Kidney stones Multiple pulmonary nodules Nausea & vomiting On anticoagulant therapy plavix daily On home oxygen therapy 2L N/C at hs and prn Oral candidiasis Osteoarthritis Sciatic leg pain right Transient ischemic attack (TIA) (~09/18/20) per pt had mini stroke and started on plavix daily Tubulovillous adenoma of colon Urge incontinence of urine Vitamin D deficiency Surgical History H/O esophagogastroduodenoscopy "repair zenkers diverticulum" History of bilateral breast reduction surgery History of bunionectomy RT History of cataract surgery RT/LEFT History of cholecystectomy Lap cholecystectomy: 06/04/16: Grade view 2, MAC#3, ETT 7.0 at [facility] History of colonoscopy History of cystoscopy (~07/24/19) History of dilatation and curettage History of removal of cyst left hand History of right breast biopsy x2--benign History of surgical removal of right nipple History of tonsillectomy and adenoidectomy History of tooth extraction all teeth History of total hysterectomy History of ureter stent Status post biopsy of thyroid gland benign Family History Brother Family history of diabetes mellitus Other No family history of adverse response to anesthesia Denies family history of Crohn's disease Colorectal cancer Ulcerative colitis Social History Smoking Status: Never smoker Tobacco Type: Cigarettes Second Hand Exposure: Yes (mom smoked); Hx Alcohol Use: No Hx Substance Use: No Preferred Language: Malay Communication Ability: Effective Visual Impairment: No Limitations 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 Her daughter and 2 grandsons live there current occupational status: retired Other Information That Helps Us Care for You: No Feels Safe at Home: Yes Safety Concerns: Feels Safe At This Time Assistive Devices: Denture - Upper and Denture - Lower Review of Systems Review of Systems: Constitutional: No fever, sweats or chills Eyes: No diplopia, no worsening or blurred vision ENT: normal hearing, no trouble swallowing Respiratory: No cough, sputum, dyspnea at rest or on exertion Cardiovascular: No chest pain, tightness or palpitations Abdomen: As per HPI. Musculoskeletal: No joint pain, calf pain, swelling Neurologic: No weakness, numbness/tingling, or balance problems Psychiatric: No anxiety or depression Skin: No rash or itch Physical Exam Physical Exam: General: awake, alert, mild distress, anxious Head: Normocephalic, atraumatic ENT: PERRL, EOMI, no pharyngeal exudate, mucous membranes moist Chest: Clear to auscultation, on room air, no adventitious breath sounds Cardiac: Regular rate and rhythm, no murmur, no JVD, normal peripheral pulses, good capillary refill Abdominal: hypoactive BS x 4 quadrants, hard, distended, tender to palpation in suprapubic region and LLQ, + guarding no rebound Extremities: Normal inspection, no peripheral edema or erythema, calfs nontender to palpation Psych: Normal mood and affect Neuro: AAO x 3, strength intact bilaterally and rated 5/5, no motor deficits, speech is clear, no peripheral sensory deficits Results & Data Results & Data ([facility]) Vital Signs (Past 12 Hours) Vital Signs Temp Pulse Pulse Pulse Resp Resp BP 06/28/21 10:00 74 18 06/28/21 09:48 68 22 06/28/21 08:00 61 22 06/28/21 07:30 27 H 06/28/21 07:02 65 23 06/28/21 06:46 64 06/28/21 06:17 36.8 C 65 177/111 H 06/28/21 06:13 36.8 C 64 06/28/21 06:00 68 27 H 177/111 H 06/28/21 05:54 68 19 171/88 H BP Pulse Ox Pulse Ox 06/28/21 10:00 174/92 H 95 06/28/21 09:48 75 L 06/28/21 08:00 93 06/28/21 07:30 97 06/28/21 07:02 99 06/28/21 06:46 96 06/28/21 06:17 94 06/28/21 06:13 177/111 H 95 06/28/21 06:00 93 06/28/21 05:54 91 Diagnostic Findings Abdomen/Pelvis CT 06/28/21 06:42 CT SCAN OF THE ABDOMEN AND PELVIS WITHOUT CONTRAST CLINICAL HISTORY: abd bloating, eval for obst COMPARISON STUDY: May 09, 2020 TECHNIQUE: CT scan of the abdomen and pelvis was performed from the lung bases to the proximal femurs. Images are reviewed in the axial, sagittal, and coronal planes. IV contrast was not administered for this examination. A dose lowering technique was utilized adhering to the principles of ALARA. CT DOSE: 958.42 mGy.cm FINDINGS: Lower chest: Few linear densities at posterior aspect of bilateral lower lobes could represent atelectasis or scarring. Liver: The unenhanced liver is normal in size, contour, and attenuation. There is no intrahepatic biliary ductal dilatation. 2.9 cm hypoattenuating lesion is seen within left lobe of the liver and was also seen during prior study in 2019, this lesion shows fluid attenuation and most likely represent cyst. Gallbladder: Is surgically absent. Spleen: Normal in size and attenuation. Pancreas: Mild fatty replacement of pancreatic parenchyma is seen predominantly within pancreatic head and uncinate process. Adrenal glands: Unremarkable. Kidneys: The unenhanced kidneys are normal in size. Mild prominence of bilateral collecting system is again seen without dilatation of the ureters. Few calculi are seen within bilateral renal pelvises, largest is seen on the left. And measuring 6 mm in size. 1.8 cm cortical cyst is seen at inferior left renal pole. Bowel: Loops of small bowel are nondilated. Appendix shows normal morphology and gas filled. Gaseous dilatation of the large bowel loops up to 6.7 cm. Transitional zone is seen within left hemiabdomen (3/114). Distal colon is collapsed. Peritoneum: There is no intraperitoneal free air or abdominal ascites. Vasculature: Abdominal aorta is normal in caliber with scattered calcifications of its wall. Adenopathy: None. Pelvic viscera: Urinary bladder is adequately filled with urine. Uterus is surgically absent. Skeletal structures: Osteopenia. Minimal degenerative changes of the spine. Vertebral hemangioma is seen within T12, was also visualized during prior. IMPRESSION: 1. High-grade obstruction of the large bowel. Transitional zone is seen within left hemiabdomen. Report will be sent to emergency Department. 2. Bilateral nonobstructive nephrolithiasis. Renal cysts. 3. Stable hypoattenuating lesion within left lobe of the liver, likely cyst. 4. Atherosclerosis. 5. The rest of findings as above. ACT 112: Negative or not required by law. The above report was generated using voice recognition software. It may contain grammatical, syntax or spelling errors. Electronically signed by: Alysia Lora DO 06/28/2021 8:39 AM Chest X-Ray 06/28/21 06:43 XR chest 1V portable INDICATION: MN ^abd pain, copd . TECHNIQUE: Single frontal radiograph of the chest was obtained. Comparison: Comparison is made to chest one view 09/18/2020 FINDINGS: No lines and tubes are seen. The cardiomediastinal silhouette is normal. The lungs are clear. No evidence of pleural effusion or pneumothorax. IMPRESSION: No acute chest disease. ACT 112: Negative or not required by law. Electronically signed by: He Paul M.D. 06/28/2021 8:04 AM ECG Additional Comments: 28-JUN-2021 05:59:54 [facility]-EDSTAT ROUTINE RETRIEVAL Poor data quality, interpretation may be adversely affected Normal sinus rhythm Normal ECG When compared with ECG of 18-SEP-2020 15:51, No significant change was found Confirmed by Landon Martines ([id number]) on 06/28/2021 8:57:51 AM 25mm/s 10mm/mV 150Hz 9.0.9 12SL 241 PARAG: 15 Referred by: REFERRED SELF Confirmed By: An carlene Clay. rate 73 BPM VT interval 178 ms QRS duration 84 ms Code Status & VTE Plan Code Status Full code Supervising Physician Co-Signing Physician Notes 75-year-old female with PMH of IBS, GERD, HLD, obesity, sleep apnea, COPD, TIA in September 2020 on Plavix, COVID-19 in August 2020, recent scope on 06/15/2021 [WNL except for internal hemorrhoids] presented 06/28 our ED with abdominal pain since yesterday and was found to have large bowel obstruction on imaging. Consult GI/keep n.p.o./IV fluid/resume home meds. She uses 2 L oxygen at home during the night. Her last bowel movement yesterday morning, patient is passing flatus. Upon examination: GENERAL: Alert and oriented x3. NAD, on 2L. HEENT: No pallor, no icterus. Pupils equal, round and reactive to light. Oral mucosa moist. NECK: No JVD, no neck masses. HEART: S1 and S2 heard. Regular rate and rhythm. No murmur, no gallop. RESPIRATORY SYSTEM: Normal AP diameter. No accessory muscle use. No wheezing, no crackles. ABDOMEN: Soft, bowel sounds present, epigastric and lower belly tenderness, no distention. CENTRAL NERVOUS SYSTEM: No facial droop. Speech is clear. Obeys simple commands. Moves extremities. EXTREMITIES: Trace edema, no erythema seen. I have seen and examined the patient and have discussed the case with the provider above. I agree with the assessment and plan as stated. (1) IBS (irritable bowel syndrome) Irritable bowel syndrome type: unspecified Qualified Code(s): K58.9 - Irritable bowel syndrome without diarrhea
--- NOTE | 2021-06-28 13:20 | Gastrointestinal Consultation ---
Date of Consultation June 28, 2021 Assessment & Plan (1) Large bowel obstruction: This is a 75-year-old female with multiple comorbidities as above, who presents with abdominal pain, and GI consulted for large bowel obstruction with transitional point in the left hemiabdomen and collapsed distal colon; gaseous dilatation of the large bowel loops up to 6.7 cm. She recently had a colonoscopy within the last month that was generally unremarkable. Lab work and imaging reviewed. Unclear etiology for her presentation, though may be related to previous abdominal surgeries she has had or perhaps underlying issues with altered bowel habits. - Would defer colonic decompression for now - Would repeat daily KUB - Recommend trial of tap water enema now - Would monitor for response Can repeat every 6 hours as needed - Monitor and document GI output - Daily KUB - Would hold dicyclomine for now - Supportive care, IVF - Analgesia as needed - Consider surgical consult Thank you for allowing us to participate in the care of this patient. Please call with any acute changes, questions or concerns. Please see addendum below with additional recommendation from my supervising physician. Supervising Physician Co-Signing Physician Notes I have personally seen and examined the patient with Evelyne Melgar PA-C on 06/28/21. Her note reflects my exam and findings. I agree with her impression and plan. Long hx of altered bowel habits. Recent colonoscopy without luminal disease. Most likely functional. Conservative measures. Art Graves M.D. History of Present Illness Reason for Consultation: large bowel obstruction History of Present Illness This is a 75-year-old female with PMhx IBS, GERD, HLD, obesity, sleep apnea, COPD, hx of TIA in Sep 2020 on plavix, and hx of COVID 19 infection in Aug 2020, who presented to the ER w/ abd pain and decrease in BMs that began last evening after supper. No BM since yesterday; today she has moved some small amt of flatus. She has been having some chronic nausea but this is not new. On arrival CTAP suggestive of high-grade obstruction of the large bowel with transitional zone within the left hemiabdomen. GI consulted for large bowel obstruction. She was examined in the ER. Labs are fairly unremarkable with no leukocytosis or anemia. She complains of chronically altered bowel habits, sometimes constipation, sometimes diarrhea. She does take dicyclomine on a chronic basis for history of IBS. Patient recently underwent colonoscopy by Dr. Rocha on 06/15/21, unremarkable except for internal hemorrhoids which were moderate. She was recommended for 5- year surveillance. Abdominal surgical history includes cholecystectomy 3 years ago as well as hysterectomy in 1984. Currently denies nausea vomiting, hematemesis, melena hematochezia, diarrhea, recent illnesses, fevers or chills, chest pain or shortness of breath, leg edema. Allergies Allergy/AdvReac Type Severity Reaction Status Date / Time adhesive Allergy Intermediate RASH Verified 06/15/21 07:53 ibuprofen Allergy Intermediate RASH Verified 06/15/21 07:53 Iodinated Contrast Media Allergy Intermediate HIVES, Verified 06/15/21 07:53 EYES SWELL SHUT latex Allergy Intermediate RASH Verified 06/15/21 07:53 naproxen Allergy Intermediate SWELLING, Verified 06/15/21 07:53 RASH, HIVES Home Medications Medication Instructions Recorded Confirmed Type atenolol 25 mg tablet 25 mg PO QAM 08/17/18 06/28/21 History hydrochlorothiazide 25 mg tablet 25 mg PO QAM 08/17/18 06/28/21 History meclizine 25 mg tablet 25 mg PO Q6 PRN 08/17/18 06/28/21 History omeprazole 20 mg capsule,delayed 20 mg PO BIDM 08/17/18 06/28/21 History release potassium chloride 10 mEq 10 meq PO QAM 08/17/18 06/28/21 History tablet,extended release dicyclomine 10 mg capsule 10 mg PO Q4 PRN 04/03/19 06/28/21 History cholecalciferol (vitamin D3) 50 2,000 unit PO QAM 06/09/19 06/28/21 History mcg (2,000 unit) capsule (Vitamin D3) ondansetron 4 mg disintegrating 4 mg PO Q6H PRN #14 tab 08/09/19 06/28/21 Rx tablet nystatin 100,000 unit/gram topical 1 applic TOPICAL TID PRN 05/09/20 06/28/21 History powder clopidogrel 75 mg tablet 75 mg PO QAM #30 tab 09/23/20 06/28/21 Rx albuterol sulfate 90 mcg/actuation 2 puff INHALATION Q6H PRN #18 gm 12/13/20 06/28/21 Rx aerosol inhaler budesonide 0.5 mg/2 mL suspension 0.5 mg INH BID #120 ml 12/13/20 06/28/21 Rx for nebulization ipratropium 0.5 mg-albuterol 3 mg 3 ml INH Q4H PRN #360 ml 12/13/20 06/28/21 Rx (2.5 mg base)/3 mL nebulization soln atorvastatin 40 mg tablet (Lipitor) 40 mg PO QAM 06/05/21 06/28/21 History docusate sodium 100 mg capsule 100 mg PO Q OTHER DAY 06/05/21 06/28/21 History (Colace) umeclidinium 62.5 mcg-vilanterol 1 inh INHALATION QAM 06/05/21 06/28/21 History 25 mcg/actuation powdr for inhalation (Anoro Ellipta) losartan 50 mg tablet 50 mg PO DAILY 06/28/21 06/28/21 History Patient History Medical History Anxiety and depression Chronic obstructive pulmonary disease nebulizer/inhalers daily and prn///2L n/c at HS/PRN Diverticulitis of colon Dysconjugate gaze History of COVID-19 diagnosed 08/2020 @ [facility]--cough, headache, fatigue--no issues now Hypokalemia Hypomagnesemia Kidney stones Multiple pulmonary nodules Nausea & vomiting On anticoagulant therapy plavix daily On home oxygen therapy 2L N/C at hs and prn Oral candidiasis Osteoarthritis Sciatic leg pain right Transient ischemic attack (TIA) (~09/18/20) per pt had mini stroke and started on plavix daily Tubulovillous adenoma of colon Urge incontinence of urine Vitamin D deficiency Surgical History H/O esophagogastroduodenoscopy "repair zenkers diverticulum" History of bilateral breast reduction surgery History of bunionectomy RT History of cataract surgery RT/LEFT History of cholecystectomy Lap cholecystectomy: 06/04/16: Grade view 2, MAC#3, ETT 7.0 at [facility] History of colonoscopy History of cystoscopy (~07/24/19) History of dilatation and curettage History of removal of cyst left hand History of right breast biopsy x2--benign History of surgical removal of right nipple History of tonsillectomy and adenoidectomy History of tooth extraction all teeth History of total hysterectomy History of ureter stent Status post biopsy of thyroid gland benign Family History Brother Family history of diabetes mellitus Other No family history of adverse response to anesthesia Denies family history of Crohn's disease Colorectal cancer Ulcerative colitis Social History Smoking Status: Never smoker Tobacco Type: Cigarettes Second Hand Exposure: Yes (mom smoked); Hx Alcohol Use: No Hx Substance Use: No Preferred Language: Cypriot Communication Ability: Effective Visual Impairment: No Limitations Individual Pension Consultant Required: No Beliefs That Will Affect Care: None marital status: Current Living Situation: Spouse and Other Current Living Situation Comment: Patient lives with her . Her daughter and 2 grandsons live there current occupational status: retired Other Information That Helps Us Care for You: No Feels Safe at Home: Yes Safety Concerns: Feels Safe At This Time Assistive Devices: Oxygen - Continuous Review of Systems Review of Systems: A complete review of systems was performed and negative except as noted in HPI Physical Exam Constitutional: WD/WN, vitals as above Eyes: Sclera anicteric Neck: trachea midline, no thyromegaly Respiratory: normal respiratory effort, lungs clear to auscultation Cardiovascular: RRR, no murmur, no edema Gastrointestinal (Abdomen): Abdomen is distended, somewhat firm, tympanic, positive tenderness to the left lower quadrant, no rebound or guarding Skin: no rashes, warm and dry Psychiatric: A+Ox3, euthymic affect Results & Data ([facility]) Vital Signs (Past 12 Hours) Vital Signs Temp Pulse Pulse Pulse Resp Resp BP 06/28/21 12:00 55 L 16 06/28/21 10:00 74 18 06/28/21 09:48 68 22 06/28/21 08:00 61 22 06/28/21 07:30 27 H 06/28/21 07:02 65 23 06/28/21 06:46 64 06/28/21 06:17 36.8 C 65 177/111 H 06/28/21 06:13 36.8 C 64 06/28/21 06:00 68 27 H 177/111 H 06/28/21 05:54 68 19 171/88 H BP Pulse Ox Pulse Ox 06/28/21 12:00 171/99 H 98 06/28/21 10:00 174/92 H 95 06/28/21 09:48 75 L 06/28/21 08:00 93 06/28/21 07:30 97 06/28/21 07:02 99 06/28/21 06:46 96 06/28/21 06:17 94 06/28/21 06:13 177/111 H 95 06/28/21 06:00 93 06/28/21 05:54 91 Laboratory Results 06/28/21 06/28/21 06/28/21 Range/Units Unknown Unknown 09:08 WBC 7.63 (4.8-10.8) K/uL RBC 4.69 (4.2-5.4) M/uL Hgb 14.0 (12.0-16.0) g/dL Hct 44.9 (37-47) % MCV 95.7 (80-100) fL MCH 29.9 (25-34) pg MCHC 31.2 L (32-36) g/dL RDW Std Deviation 49.3 H (36.4-46.3) fL RDW Coeff of Enoc 14.0 (11.5-14.5) % Plt Count 179 (130-400) K/uL MPV 9.9 (7.4-10.4) fL Immature Gran % (Auto) 0.4 % Neut % (Auto) 69.4 % Lymph % (Auto) 16.6 % [place] % (Auto) 10.7 % Eos % (Auto) 2.6 % Baso % (Auto) 0.3 % Neut # (Auto) 5.29 (1.4-6.5) K/uL Lymph # (Auto) 1.27 (1.2-3.4) K/uL [place] # (Auto) 0.82 H (0.11-0.59) K/uL Eos # (Auto) 0.20 (0-0.5) K/uL Baso # (Auto) 0.02 (0-0.2) K/uL Immature Gran # (Auto) 0.03 H (0.00-0.02) K/uL Sodium 140 (136-145) mmol/L Potassium 4.0 (3.5-5.1) mmol/L Chloride 105 (98-107) mmol/L Carbon Dioxide 30 (21-32) mmol/L Anion Gap 5.0 (3-11) BUN 18 (7-18) mg/dl Creatinine 0.78 (0.6-1.2) mg/dl Est Cr Clr Drug Dosing Not Reportable Est GFR ( Amer) 85.0 ml/min Est GFR (Non-Af Amer) 73.3 ml/min BUN/Creatinine Ratio 23.4 H (10-20) Glucose 108 H (70-99) mg/dl Calcium 9.3 (8.5-10.1) mg/dl Total Bilirubin 0.5 (0.2-1) mg/dl AST 15 (15-37) U/L ALT 21 (12-78) U/L Alkaline Phosphatase 96 (45-117) U/L Troponin I < 0.015 (0-0.045) ng/ml Total Protein 7.0 (6.4-8.2) gm/dl Albumin 3.3 L (3.4-5.0) gm/dl Globulin 3.7 (2.5-4.0) gm/dl Albumin/Globulin Ratio 0.9 (0.9-2) Lipase 99 (73-393) U/L COVID-19 Eval Order SARS-CoV-2 (PCR) NEGATIVE (Negative) 06/28/21 Range/Units 09:08 WBC (4.8-10.8) K/uL RBC (4.2-5.4) M/uL Hgb (12.0-16.0) g/dL Hct (37-47) % MCV (80-100) fL MCH (25-34) pg MCHC (32-36) g/dL RDW Std Deviation (36.4-46.3) fL RDW Coeff of Enoc (11.5-14.5) % Plt Count (130-400) K/uL MPV (7.4-10.4) fL Immature Gran % (Auto) % Neut % (Auto) % Lymph % (Auto) % [place] % (Auto) % Eos % (Auto) % Baso % (Auto) % Neut # (Auto) (1.4-6.5) K/uL Lymph # (Auto) (1.2-3.4) K/uL [place] # (Auto) (0.11-0.59) K/uL Eos # (Auto) (0-0.5) K/uL Baso # (Auto) (0-0.2) K/uL Immature Gran # (Auto) (0.00-0.02) K/uL Sodium (136-145) mmol/L Potassium (3.5-5.1) mmol/L Chloride (98-107) mmol/L Carbon Dioxide (21-32) mmol/L Anion Gap (3-11) BUN (7-18) mg/dl Creatinine (0.6-1.2) mg/dl Est Cr Clr Drug Dosing Est GFR ( Amer) ml/min Est GFR (Non-Af Amer) ml/min BUN/Creatinine Ratio (10-20) Glucose (70-99) mg/dl Calcium (8.5-10.1) mg/dl Total Bilirubin (0.2-1) mg/dl AST (15-37) U/L ALT (12-78) U/L Alkaline Phosphatase (45-117) U/L Troponin I (0-0.045) ng/ml Total Protein (6.4-8.2) gm/dl Albumin (3.4-5.0) gm/dl Globulin (2.5-4.0) gm/dl Albumin/Globulin Ratio (0.9-2) Lipase (73-393) U/L COVID-19 Eval Order Covid19 at [facility] SARS-CoV-2 (PCR) (Negative) Diagnostic Findings CTAP: Lower chest: Few linear densities at posterior aspect of bilateral lower lobes could represent atelectasis or scarring. Liver: The unenhanced liver is normal in size, contour, and attenuation. There is no intrahepatic biliary ductal dilatation. 2.9 cm hypoattenuating lesion is seen within left lobe of the liver and was also seen during prior study in 2020, this lesion shows fluid attenuation and most likely represent cyst. Gallbladder: Is surgically absent. Spleen: Normal in size and attenuation. Pancreas: Mild fatty replacement of pancreatic parenchyma is seen predominantly within pancreatic head and uncinate process. Adrenal glands: Unremarkable. Kidneys: The unenhanced kidneys are normal in size. Mild prominence of bilateral collecting system is again seen without dilatation of the ureters. Few calculi are seen within bilateral renal pelvises, largest is seen on the left. And measuring 6 mm in size. 1.8 cm cortical cyst is seen at inferior left renal pole. Bowel: Loops of small bowel are nondilated. Appendix shows normal morphology and gas filled. Gaseous dilatation of the large bowel loops up to 6.7 cm. Transitional zone is seen within left hemiabdomen (3/114). Distal colon is collapsed. Peritoneum: There is no intraperitoneal free air or abdominal ascites. Vasculature: Abdominal aorta is normal in caliber with scattered calcifications of its wall. Adenopathy: None. Pelvic viscera: Urinary bladder is adequately filled with urine. Uterus is surgically absent. Skeletal structures: Osteopenia. Minimal degenerative changes of the spine. Vertebral hemangioma is seen within T12, was also visualized during prior. IMPRESSION: 1. High-grade obstruction of the large bowel. Transitional zone is seen within left hemiabdomen. Report will be sent to emergency Department. 2. Bilateral nonobstructive nephrolithiasis. Renal cysts. 3. Stable hypoattenuating lesion within left lobe of the liver, likely cyst. 4. Atherosclerosis. 5. The rest of findings as above. CXR: FINDINGS: No lines and tubes are seen. The cardiomediastinal silhouette is normal. The lungs are clear. No evidence of pleural effusion or pneumothorax.
[2021-06-28] MEDS ORDERED: ALBUTEROL HFA 8 GM INHALER INH PRN (15:22)
[2021-06-28] MEDS: ONDANSETRON INJ 2 MG/ML 2 ML VIAL IV PRN ×2 (15:29→21:20)
[2021-06-28] MEDS: SODIUM CHLORIDE 0.9% 1000ML 1,000 ML IV SCH (15:52)
[2021-06-28] MEDS: ACETAMINOPHEN 325 MG TAB PO PRN (15:52)
[2021-06-28] MEDS ORDERED: METOPROLOL TARTRATE 1 MG/ML VIAL IV SCH (16:00)
[2021-06-28] MEDS: BUDESONIDE 0.5 MG/2 ML VIAL (PULMICORT) INH SCH (20:13)
[2021-06-28] MEDS ORDERED: MoRPHine SULFATE 4 MG/ML 1 ML CARP\\VIAL IV PRN (21:04)
--- NOTE | 2021-06-28 21:17 | Surgery Consultation ---
Date of Consultation June 28, 2021 Assessment & Plan (1) Large bowel obstruction: Patient has been admitted by the hospitalist service. We recommend proceeding as follows: Continue plan as outlined by gastroenterology including trial of tapwater enemas, IV fluid for hydration, daily KUBs, and analgesics as needed. In the setting of a recent colonoscopy without significant pathology we will defer any surgical intervention at this time. Patient does not improve clinically or her clinical status deteriorates it would be ideal for patient to have a repeat colonoscopy prior to undergoing any surgical intervention. Remainder of plan as directed by primary service Supervising Physician Co-Signing Physician Notes Patient discussed with Herman Snyder, labs and imaging reviewed overnight. Likely pseudo-obstruction given recent c-scope with no abnormalities. See 06/29 progress note for full details. History of Present Illness Reason for Consultation: Colon obstruction Attending Physician: Leatha Ryan MD History of Present Illness This is a 75-year-old female that we are asked to evaluate secondary to colon obstruction. Patient notes that she did have a colonoscopy on June 15 of this year. This was performed by Dr. Rocha of [facility] gastroenterology. Her colonoscopy report was reviewed and her colonoscopic exam was essentially normal with the exception of internal hemorrhoids. Patient notes that she was doing well following this procedure. She did note over the past 24 to 48 hours she has noted that she has had smaller bowel movements than usual. She is also not passing much flatus. She notes this is unusual for her. The past 24 hours the patient noted that her abdomen became bloated and distended. She has nausea without vomiting. She denies any fevers, shakes, chills. She notes she has had prior abdominal surgeries in the form of a cholecystectomy as well as a hysterectomy. She notes that this did not improve so she presented to the emergency department. In the emergency department patient had labs and imaging which independent reviewed. A chest x-ray showed no evidence of pneumonia or CHF. Patient had a CT scan of the abdomen and pelvis that showed concern for high-grade obstruction of the large bowel with a transition zone in the left hemiabdomen. Labs include a CBC where her white blood cell count, hemoglobin, hematocrit, and platelet count are all within normal range. Chemistry profile showed sodium, potassium, BUN, and creatinine were all within normal range. There is no significant elevation of LFTs or lipase. A Covid test was performed and was noted be negative. Since admission the patient has been evaluated by gastroenterology.Gastroenterology was uncertain of the etiology of patient's current presentation. [place] that it could potentially be related to previous abdominal surgeries or chronically altered bowel habits. It was recommended that the patient trial tapwater enemas and repeat daily KUBs to monitor her progress. Hydration measures with IV fluid were also recommended. It was not felt that colonic decompression was needed at this time. With her current presentation I did asked patient if she has had any new medications that could have contributed which she denied. She denies any recent antibiotic use. Patient does note that she had a similar problem approximately 2 years ago and she notes that this was treated successfully with over-the- counter laxatives. Allergies Allergy/AdvReac Type Severity Reaction Status Date / Time adhesive Allergy Intermediate RASH Verified 06/15/21 07:53 ibuprofen Allergy Intermediate RASH Verified 06/15/21 07:53 Iodinated Contrast Media Allergy Intermediate HIVES, Verified 06/15/21 07:53 EYES SWELL SHUT latex Allergy Intermediate RASH Verified 06/15/21 07:53 naproxen Allergy Intermediate SWELLING, Verified 06/15/21 07:53 RASH, HIVES Home Medications Medication Instructions Recorded Confirmed Type atenolol 25 mg tablet 25 mg PO QAM 08/17/18 06/28/21 History hydrochlorothiazide 25 mg tablet 25 mg PO QAM 08/17/18 06/28/21 History meclizine 25 mg tablet 25 mg PO Q6 PRN 08/17/18 06/28/21 History omeprazole 20 mg capsule,delayed 20 mg PO BIDM 08/17/18 06/28/21 History release potassium chloride 10 mEq 10 meq PO QAM 08/17/18 06/28/21 History tablet,extended release dicyclomine 10 mg capsule 10 mg PO Q4 PRN 04/03/19 06/28/21 History cholecalciferol (vitamin D3) 50 2,000 unit PO QAM 06/09/19 06/28/21 History mcg (2,000 unit) capsule (Vitamin D3) ondansetron 4 mg disintegrating 4 mg PO Q6H PRN #14 tab 08/09/19 06/28/21 Rx tablet nystatin 100,000 unit/gram topical 1 applic TOPICAL TID PRN 05/09/20 06/28/21 History powder clopidogrel 75 mg tablet 75 mg PO QAM #30 tab 12/18/20 09/22/21 Rx albuterol sulfate 90 mcg/actuation 2 puff INHALATION Q6H PRN #18 gm 12/13/20 06/28/21 Rx aerosol inhaler budesonide 0.5 mg/2 mL suspension 0.5 mg INH BID #120 ml 12/13/20 06/28/21 Rx for nebulization ipratropium 0.5 mg-albuterol 3 mg 3 ml INH Q4H PRN #360 ml 12/13/20 06/28/21 Rx (2.5 mg base)/3 mL nebulization soln atorvastatin 40 mg tablet (Lipitor) 40 mg PO QAM 06/05/21 06/28/21 History docusate sodium 100 mg capsule 100 mg PO Q OTHER DAY 06/05/21 06/28/21 History (Colace) umeclidinium 62.5 mcg-vilanterol 1 inh INHALATION QAM 06/05/21 06/28/21 History 25 mcg/actuation powdr for inhalation (Anoro Ellipta) losartan 50 mg tablet 50 mg PO DAILY 06/28/21 06/28/21 History Patient History Medical History Anxiety and depression Chronic obstructive pulmonary disease nebulizer/inhalers daily and prn///2L n/c at HS/PRN Diverticulitis of colon Dysconjugate gaze History of COVID-19 diagnosed 08/2020 @ [facility]--cough, headache, fatigue--no issues now Hypokalemia Hypomagnesemia Kidney stones Multiple pulmonary nodules Nausea & vomiting On anticoagulant therapy plavix daily On home oxygen therapy 2L N/C at hs and prn Oral candidiasis Osteoarthritis Sciatic leg pain right Transient ischemic attack (TIA) (~09/18/20) per pt had mini stroke and started on plavix daily Tubulovillous adenoma of colon Urge incontinence of urine Vitamin D deficiency Surgical History H/O esophagogastroduodenoscopy "repair zenkers diverticulum" History of bilateral breast reduction surgery History of bunionectomy RT History of cataract surgery RT/LEFT History of cholecystectomy Lap cholecystectomy: 8/29/16: Grade view 2, MAC#3, ETT 7.0 at [facility] History of colonoscopy History of cystoscopy (~07/24/19) History of dilatation and curettage History of removal of cyst left hand History of right breast biopsy x2--benign History of surgical removal of right nipple History of tonsillectomy and adenoidectomy History of tooth extraction all teeth History of total hysterectomy History of ureter stent Status post biopsy of thyroid gland benign Family History Brother Family history of diabetes mellitus Other No family history of adverse response to anesthesia Denies family history of Crohn's disease Colorectal cancer Ulcerative colitis Social History Smoking Status: Never smoker Tobacco Type: Cigarettes Second Hand Exposure: Yes (mom smoked); Hx Alcohol Use: No Hx Substance Use: No Preferred Language: Syriac Communication Ability: Effective Visual Impairment: No Limitations Senior Credit Officer Required: No Beliefs That Will Affect Care: None marital status: Current Living Situation: Spouse and Other Current Living Situation Comment: Patient lives with her . Her daughter and 2 grandsons live there current occupational status: retired Other Information That Helps Us Care for You: No Feels Safe at Home: Yes Safety Concerns: Feels Safe At This Time Assistive Devices: Oxygen - Continuous Review of Systems Constitutional: no fever and no chills Eyes: no diplopia Ear, Nose, Mouth, Throat: no ear pain and no sore throat Respiratory: no cough and no dyspnea Cardiovascular: no chest pain Gastrointestinal: + abdominal pain, + bloating, + nausea, + change in bowel habits (Decreased caliber of bowel movement in the last 48 hours) and + constipation; no vomiting Genitourinary: no dysuria Musculoskeletal: no back pain Integumentary: no rash Neurologic: no localized weakness Physical Exam Constitutional: well developed and well nourished; no acute distress Eyes: no conjunctival abnormality ENMT: Ears: no hearing impairment Mouth: no oropharynx abnormality Neck: trachea midline Respiratory: normal respiratory effort; no respiratory distress and no labored breathing Cardiovascular: Rate/Rhythm: regular rate and regular rhythm Gastrointestinal (Abdomen): Abdomen is rotund and distended. Bowel sounds are hypoactive. Abdomen is tympanic to percussion. There is no rebound tenderness or guarding. Patient did have pain with palpation in a generalized fashion throughout her abdomen. I do not appreciate any ventral hernias. Musculoskeletal: No calf tenderness Skin: no rashes Neurologic: moves all extremities Psychiatric: A+Ox3, euthymic affect Results & Data ([facility]) Vital Signs (Past 12 Hours) Vital Signs Temp Pulse Pulse Pulse Resp Resp BP 06/28/21 20:13 61 18 06/28/21 19:00 36.6 C 66 18 06/28/21 16:54 62 06/28/21 16:34 62 166/90 H 06/28/21 16:33 62 06/28/21 16:07 69 06/28/21 15:22 36.4 C L 68 18 06/28/21 15:12 56 L 16 06/28/21 14:00 64 16 06/28/21 12:00 55 L 16 06/28/21 10:00 74 18 06/28/21 09:48 68 22 BP Pulse Ox Pulse Ox 06/28/21 20:13 91 06/28/21 19:00 182/97 H 91 06/28/21 16:54 158/88 H 06/28/21 16:34 06/28/21 16:33 166/90 H 06/28/21 16:07 06/28/21 15:22 168/92 H 93 06/28/21 15:12 175/86 H 97 06/28/21 14:00 177/89 H 96 06/28/21 12:00 171/99 H 98 06/28/21 10:00 174/92 H 95 06/28/21 09:48 75 L PG Care Time/CCT Total # of Minutes Spent Total Time Spent with Patient: Total time spent is greater than 50% in coordination of care (as documented) at patient's floor/unit and/or counseling patient: Coding Level of Care Code 47280 Inpt Consult Level 5 Diagnoses Large bowel obstruction K56.609
[2021-06-28] MEDS: traMADol HCL 50 MG TABLET PO PRN (21:20)
[2021-06-28] MEDS: METOPROLOL TARTRATE 1 MG/ML VIAL IV SCH (22:06)
[2021-06-29] MEDS: traMADol HCL 50 MG TABLET PO PRN (04:33)
[2021-06-29] MEDS: METOPROLOL TARTRATE 1 MG/ML VIAL IV SCH ×4 (04:34→16:56)
[2021-06-29] MEDS: ONDANSETRON INJ 2 MG/ML 2 ML VIAL IV PRN ×2 (05:50→11:27)
[2021-06-29 06:26] LABS: Hematocrit (blood only) 45.3 % (37-47); Mean Corpuscular Hemoglobin 29.9 pg (25-34); Mean Corpuscular Hgb Conc 30.9 g/dL (32-36); Mean Corpuscular Volume 96.8 fL (80-100); Mean Platelet Volume 9.6 fL (7.4-10.4); Platelet Count 168 K/uL (130-400); RDW Coefficient of Variation 13.8 % (11.5-14.5); RDW Standard Deviation 49.4 fL (36.4-46.3); Red Blood Count 4.68 M/uL (4.2-5.4); White Blood Count 7.77 K/uL (4.8-10.8)
[2021-06-29 07:13] LABS: Albumin Globulin Ratio 0.9 (0.9-2); Albumin Level 3.3 gm/dl (3.4-5.0); BUN Creatinine Ratio 18.3 (10-20); Bilirubin,Total 0.9 mg/dl (0.2-1); Calcium 8.9 mg/dl (8.5-10.1); Est GFR (African American) 100.8 ml/min; Globulin 3.7 gm/dl (2.5-4.0); Potassium 3.9 mmol/L (3.5-5.1)
[2021-06-29 07:20] LABS: Appearance Urine Clear (Clear); Bacteria Urine Automated Negative (Negative); Bilirubin Urine Negative (Negative); Blood Urine Trace (Negative); Cast Urine Automated 0 /lpf (0-5); Color Urine Yellow; Glucose Urine UA Negative (Negative); Ketones Urine Trace (Negative); Leukocyte Esterase Urine Negative (Negative); Nitrite Urine Negative (Negative); Protein Urine Negative (Negative); Specific Gravity Urine 1.016 (1.000-1.030); Urobilinogen Urine Negative (Negative)
[2021-06-29] MEDS: BUDESONIDE 0.5 MG/2 ML VIAL (PULMICORT) INH SCH ×2 (07:29→18:56)
--- NOTE | 2021-06-29 08:03 | CT Scan Report ---
CT head/brain wo con CLINICAL HISTORY: garcia COMPARISON STUDY: September 18, 2020 TECHNIQUE: Axial CT of the brain is performed from the vertex to the skull base. IV contrast was not administered for this examination. A dose lowering technique was utilized adhering to the principles of ALARA. CT DOSE: 884.08 mGy.cm FINDINGS: No intra or extra-axial mass lesions are visualized. There is no CT evidence of acute cortical infarc tion. There is no evidence of midline shift. There is no acute hemorrhage. No acute depressed calvar ial fractures are visualized. There are patchy white matter hypodensities likely on a small vessel basis. Diffuse atrophic changes of brain parenchyma are again seen. Ventricles are midline, of normal size a nd configuration. Partial opacification of the left maxillary sinus is again seen, unchanged since prior. The rest of v isualized paranasal sinuses and mastoid air cells are patent and well-aerated. IMPRESSION: 1. No acute intracranial hemorrhage, no midline shift or space occupying lesions. 2. Atrophic changes of brain parenchyma and chronic small vessel ischemia. 3. Partial opacification of the left maxillary sinus is unchanged since prior could represent sinusi tis in appropriate clinical settings. ACT 112: Negative or not required by law. The above report was generated using voice recognition software. It may contain grammatical, syntax o r spelling errors. Electronically signed by: Alysia Lora DO 06/29/2021 8:01 AM
[2021-06-29] MEDS: SODIUM CHLORIDE 0.9% 1000ML 1,000 ML IV SCH (08:47)
[2021-06-29] MEDS: CLOPIDOGREL BISULFATE 75 MG TAB PO SCH ×2 (10:25→10:33)
[2021-06-29] MEDS: hydroCHLOROthiazide 25 MG TAB PO SCH ×2 (10:26→10:34)
[2021-06-29] MEDS: ATORVASTATIN 40 MG TAB PO SCH ×2 (10:26→10:34)
[2021-06-29] MEDS: LOSARTAN POTASSIUM 50 MG TAB PO SCH ×2 (10:26→10:34)
[2021-06-29] MEDS: ATENOLOL 25 MG TABLET PO SCH ×2 (10:26→10:33)
[2021-06-29] MEDS: UMECLIDINIUM/VILANTEROL 62.5/25MCG 7 PUFFS/INHALER INH SCH (10:26)
[2021-06-29] MEDS: hydrALAZINE HCL 20 MG/ML VIAL IV PRN ×2 (11:05→15:34)
[2021-06-29] MEDS: PANTOprazole 40 MG in SYRINGE 0 ML IV SCH (11:05)
--- NOTE | 2021-06-29 13:05 | Surgery Progress Note ---
Date of Service June 29, 2021 Assessment & Plan (1) [place]'s syndrome: Plan: 75 y/o female with colonic distention, likely pseudo-obstruction given recent colonoscopy without intra-luminal abnormality. NG tube for emesis and decompression continue tap water enemas discuss possible colonoscopic decompression with GI surgery will follow Admission and Anticipated Discharge Date Admission Date: June 28, 2021 Subjective 75 y/o female admitted for colonic distention, likely pseudo-obstruction. Sitting at bedside, retching with nausea. Feels less distended than yesterday, no pain. Minimal flatus. Physical Exam Constitutional: WD/WN, vitals as above + acute distress (moderate) Gastrointestinal (Abdomen): Inspection/Auscultation: + abdomen distended and + abdominal surgical scar Percussion/Palpation: abdomen soft; abdomen nontender, no guarding and abdomen not rigid Results & Data ([facility]) Vital Signs (Past 12 Hours) Vital Signs Temp Pulse Pulse Resp BP BP Pulse Ox 06/29/21 11:27 36.8 C 59 L 19 167/88 H 94 06/29/21 11:00 59 L 175/82 H 06/29/21 10:27 66 184/81 H 06/29/21 07:51 36.5 C 65 19 181/95 H 98 06/29/21 07:30 81 18 96 06/29/21 04:34 67 163/85 H 06/29/21 04:29 36.9 C 67 18 163/85 H 95 PG Care Time/CCT Total # of Minutes Spent Total Time Spent with Patient: Total time spent is greater than 50% in coordination of care (as documented) at patient's floor/unit and/or counseling patient: Coding Level of Care Code 56173 Inpt Consult Level 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
--- NOTE | 2021-06-29 13:09 | Gastroenterology Progress Note ---
Date of Service June 29, 2021 Assessment & Plan (1) Large bowel obstruction: Plan: This is a 75-year-old female with multiple comorbidities, admitted with abdominal pain, and GI consulted for large bowel obstruction with transitional point in the left hemiabdomen and collapsed distal colon; gaseous dilatation of the large bowel loops up to 6.7 cm. She recently had a colonoscopy within the last month that was generally unremarkable. Lab work and imaging reviewed. Unclear etiology for her presentation, though may be related to previous abdominal surgeries she has had or perhaps underlying issues with altered bowel habits. Overnight has had worsening n/v; no improvement in abd distention/discomfort w/ tapwater enema x 1. - Repeat tap water enema now; can repeat q 6 hours - Would monitor for response - Would defer colonic decompression for now - Await repeat KUB - Monitor and document GI output - Would hold dicyclomine for now - Supportive care, IVF - Analgesia, antiemetics as needed - Aim to keep Mg > 2 and K > 4; check Mg - Encourage ambulation as able Thank you for allowing us to participate in the care of this patient. Please call with any acute changes, questions or concerns. Please see addendum below with additional recommendation from my supervising physician. Admission and Anticipated Discharge Date Admission Date: June 28, 2021 Supervising Physician Co-Signing Physician Notes I have personally seen and examined the patient with Evelyne Melgar PA-C. Her note reflects my exam and findings. I agree with her impression and plan. Passing some flatus. Repeat enema and ambulate patient as well as turn often in bed. Art Graves M.D. Subjective Patient seen and examined, chart reviewed. She received 1 tapwater enema yesterday, none since. Had very little or no GI output after that. Today complains of increased nausea, had nonbloody emesis, + belching and burping. Small amount of flatus. No BMs. Still complains of abd distention, bloating; no significant abd pain. She is getting antiemetics. Repeat KUB ordered by primary service, pending. She has been evaluated by general surgery. No fevers or chills, hematemesis, melena hematochezia, chest pain or shortness of breath Review of Systems Review of Systems: A complete review of systems was performed and negative except as noted in HPI Physical Exam Constitutional: WD/WN, vitals as above Neck: trachea midline, no thyromegaly Respiratory: normal respiratory effort, lungs clear to auscultation Cardiovascular: RRR, no murmur, no edema Gastrointestinal (Abdomen): Abd soft but remains moderately distended, tympanic, w/ generalized moderate tenderness no focal tenderness, no guarding, rebound Skin: no rashes, warm and dry Psychiatric: A+Ox3, euthymic affect Results & Data ([facility]) Vital Signs (Past 12 Hours) Vital Signs Temp Pulse Pulse Resp BP BP Pulse Ox 06/29/21 11:27 36.8 C 59 L 19 167/88 H 94 06/29/21 11:00 59 L 175/82 H 06/29/21 10:27 66 184/81 H 06/29/21 07:51 36.5 C 65 19 181/95 H 98 06/29/21 07:30 81 18 96 06/29/21 04:34 67 163/85 H 06/29/21 04:29 36.9 C 67 18 163/85 H 95 Laboratory Results 06/29/21 06/29/21 06/29/21 Range/Units 06:01 06:01 05:40 WBC 7.77 (4.8-10.8) K/uL RBC 4.68 (4.2-5.4) M/uL Hgb 14.0 (12.0-16.0) g/dL Hct 45.3 (37-47) % MCV 96.8 (80-100) fL MCH 29.9 (25-34) pg MCHC 30.9 L (32-36) g/dL RDW Std Deviation 49.4 H (36.4-46.3) fL RDW Coeff of Enoc 13.8 (11.5-14.5) % Plt Count 168 (130-400) K/uL MPV 9.6 (7.4-10.4) fL Sodium 136 (136-145) mmol/L Potassium 3.9 (3.5-5.1) mmol/L Chloride 104 (98-107) mmol/L Carbon Dioxide 29 (21-32) mmol/L Anion Gap 3.0 (3-11) BUN 11 (7-18) mg/dl Creatinine 0.62 (0.6-1.2) mg/dl Est Cr Clr Drug Dosing 78.0 ml/min Est GFR ( Amer) 100.8 ml/min Est GFR (Non-Af Amer) 87.0 ml/min BUN/Creatinine Ratio 18.3 (10-20) Glucose 107 H (70-99) mg/dl Calcium 8.9 (8.5-10.1) mg/dl Total Bilirubin 0.9 (0.2-1) mg/dl AST 17 (15-37) U/L ALT 22 (12-78) U/L Alkaline Phosphatase 97 (45-117) U/L Total Protein 7.0 (6.4-8.2) gm/dl Albumin 3.3 L (3.4-5.0) gm/dl Globulin 3.7 (2.5-4.0) gm/dl Albumin/Globulin Ratio 0.9 (0.9-2) Urine Color Yellow Urine Appearance Clear (Clear) Urine pH 7.0 (4.5-7.5) Ur Specific [place] 1.016 (1.000-1.030) Urine Protein Negative (Negative) Urine Glucose (UA) Negative (Negative) Urine Ketones Trace H (Negative) Urine Blood Trace H (Negative) Urine Nitrite Negative (Negative) Urine Bilirubin Negative (Negative) Urine Urobilinogen Negative (Negative) Ur Leukocyte Esterase Negative (Negative) Urine WBC (Auto) 1-5 (0-5) /hpf Urine RBC (Auto) 5-10 H (0-4) /hpf U Hyaline Cast (Auto) 0 (0-5) /lpf U Epithel Cells (Auto) 10-20 H (0-5) /lpf Urine Bacteria (Auto) Negative (Negative)
--- NOTE | 2021-06-29 13:39 | XRay Report ---
XR KUB/Abdomen 1 view CLINICAL HISTORY: ogilvies COMPARISON STUDY: No previous studies for comparison. Correlation is made with CT of the abdomen and pelvis performed on June 28, 2021. FINDINGS: Multiple gas-filled loops of bowel are seen throughout the abdomen, measuring up to 11.2 cm on the ri ght and up to 8.8 cm on the left, and appear larger than on prior CT which was performed yesterday. Large amount of stool is seen within right hemiabdomen. IMPRESSION: 1. Gaseous dilatation of the bowel loops, worsening since prior study performed yesterday as bradley ordaz above. Report will be sent to patient's unit. ACT 112: Negative or not required by law. The above report was generated using voice recognition software. It may contain grammatical, syntax o r spelling errors. Electronically signed by: Alysia Lora DO 06/29/2021 1:37 PM
[2021-06-29] MEDS: PROMETHAZINE HCL 12.5 MG in SODIUM CHLORIDE 0.9% 50 ML IV PRN ×2 (13:54→20:59)
[2021-06-29] MEDS ORDERED: hydrALAZINE HCL 20 MG/ML VIAL IV PRN (15:58)
--- NOTE | 2021-06-29 16:11 | XRay Report ---
KUB CLINICAL HISTORY: confirm NGT placement COMPARISON STUDY: CT of the abdomen and pelvis June 28, 2021. KUB performed earlier today. FINDINGS: Tip of nasogastric tube is within the body of the stomach. Gaseous distention of the large bowel is again noted. This is either unchanged or slightly improved since prior exam. Cholecystectomy clips are noted. IMPRESSION: 1. Tip of nasogastric tube within the body of the stomach. 2. Gaseous distention of the colon, either unchanged or slightly improved since prior exam. ACT 112: Negative or not required by law. Electronically signed by: João Villatoro M.D. 06/29/2021 4:10 PM
[2021-06-29] MEDS: CHLORASEPTIC 1.4% SOLN 180 ML BTL MT PRN (16:28)
--- NOTE | 2021-06-29 16:34 | Hospitalist Progress Note ---
Date of Service June 29, 2021 Assessment & Plan (1) Large bowel obstruction: Plan: 75-year-old female with PMH of IBS, GERD, HLD, obesity, sleep apnea, COPD, TIA in September 2020 on Plavix, COVID-19 in August 2020, recent scope on 06/15/2021 [WNL except for internal hemorrhoids] presented 06/28 our ED with abdominal pain since 1 day [employer] and was found to have large bowel obstruction on imaging. She is being managed for the following: #. Last bowel obstruction No BM since 1 day [employer], patient moving gas. Hx of having c-scope on 06/15/21, normal colon, moderate internal hemorrhoids noted. hx of abdominal surgeries includes cholecystectomy 2017 and hysterectomy in 1984 Admitting CTAP positive for high-grade obstruction of the large bowel. Follow-up KUBworsening gaseous dilatation of the bowel loops GI consulted: Recent scope WNL, n.p.o., tapwater enema every 6 hours, possible flexible sigmoidoscopy tomorrow. General surgery consulted: No surgical intervention currently until repeat colonoscopy. Continue with supportive management/IV hydration/n.p.o./NG tube decompression/nausea and vomiting control. Ambulate as able Hold p.o. medications, resume when able #. Hypertension Blood pressure elevated, likely secondary to acute distress Continue with scheduled IV metoprolol As needed medication added, can alternate between labetalol and hydralazine to keep blood pressure below 160 mmHg. Continue to monitor #. GERD/IBS/morbid obesity/sleep apnea/COPD/dyslipidemia: Use medications in IV form, resume home meds when able. Encourage diet and exercise through the hospital stay and upon discharge. Continue inhaler medications. Disposition: PT/OT, CM to assist with DC planning. Admission and Anticipated Discharge Date Admission Date: June 28, 2021 Subjective Patient lying in bed, on 2 L oxygen, in mild to moderate distress, nauseous overnight, and one vomiting in the morning. Denies any fever/chills/hematemesis/blood in stool/other review of symptoms. No bowel movements. Patient moving gas. Physical Exam Physical Exam: GENERAL: Alert and oriented x3. mild distress, on 2L. HEENT: No pallor, no icterus. Pupils equal, round and reactive to light. Oral mucosa moist. NECK: No JVD, no neck masses. HEART: S1 and S2 heard. Regular rate and rhythm. No murmur, no gallop. RESPIRATORY SYSTEM: Normal AP diameter. No accessory muscle use. No wheezing, no crackles. ABDOMEN: Soft, bowel sounds present, epigastric and lower belly tenderness, no distention. CENTRAL NERVOUS SYSTEM: No facial droop. Speech is clear. Obeys simple commands. Moves extremities. EXTREMITIES: Trace edema, no erythema seen. Results & Data Results & Data ([facility]) Vital Signs (Past 12 Hours) Vital Signs Temp Pulse Pulse Resp BP BP Pulse Ox 06/29/21 15:13 36.7 C 84 20 192/92 H 95 06/29/21 11:27 36.8 C 59 L 19 167/88 H 94 06/29/21 11:00 59 L 175/82 H 06/29/21 10:27 66 184/81 H 06/29/21 07:51 36.5 C 65 19 181/95 H 98 06/29/21 07:30 81 18 96 06/29/21 04:34 67 163/85 H 06/29/21 04:29 36.9 C 67 18 163/85 H 95
[2021-06-29] MEDS ORDERED: ACETAMINOPHEN 1000 MG/100 ML IV IV ONE (16:37)
[2021-06-29] MEDS ORDERED: ACETAMINOPHEN 1,000 MG/100 ML VIAL IV ONE (16:45)
[2021-06-29] MEDS ORDERED: MoRPHine SULFATE 2 MG/ML CARP IV PRN (20:17)
[2021-06-30] MEDS: PROMETHAZINE HCL 12.5 MG in SODIUM CHLORIDE 0.9% 50 ML IV PRN (02:22)
[2021-06-30] MEDS: ACETAMINOPHEN 1000 MG/100 ML IV IV PRN ×3 (03:01→21:58)
[2021-06-30] MEDS: METOPROLOL TARTRATE 1 MG/ML VIAL IV SCH ×2 (03:24→15:45)
[2021-06-30] MEDS: SODIUM CHLORIDE 0.9% 1000ML 1,000 ML IV SCH (03:24)
[2021-06-30 06:34] LABS: Hematocrit (blood only) 44.4 % (37-47); Hemoglobin 13.9 g/dL (12.0-16.0); Mean Corpuscular Hgb Conc 31.3 g/dL (32-36); Mean Corpuscular Volume 95.9 fL (80-100); Mean Platelet Volume 9.5 fL (7.4-10.4); Platelet Count 184 K/uL (130-400); RDW Standard Deviation 49.3 fL (36.4-46.3); Red Blood Count 4.63 M/uL (4.2-5.4); White Blood Count 12.17 K/uL (4.8-10.8)
[2021-06-30 07:02] LABS: Albumin Level 3.2 gm/dl (3.4-5.0); BUN Creatinine Ratio 18.2 (10-20); Calcium 9.2 mg/dl (8.5-10.1); Creatinine Clr Calc Pharmacy 64.5 ml/min; Est GFR (African American) 89.1 ml/min; Est GFR (Non-African American) 76.9 ml/min; Magnesium 1.8 mg/dl (1.8-2.4); Potassium 3.7 mmol/L (3.5-5.1)
[2021-06-30 07:04] LABS: Albumin Globulin Ratio 0.9 (0.9-2); Bilirubin,Total 0.8 mg/dl (0.2-1); Globulin 3.5 gm/dl (2.5-4.0); Total Protein 6.7 gm/dl (6.4-8.2)
[2021-06-30] MEDS: BUDESONIDE 0.5 MG/2 ML VIAL (PULMICORT) INH SCH ×2 (07:17→19:29)
--- NOTE | 2021-06-30 08:55 | XRay Report ---
KUB CLINICAL HISTORY: Large bowel obstruction. COMPARISON STUDY: CT of the abdomen and pelvis June 28, 2021. KUB June 29, 2021. FINDINGS: Incidental note is made of cholecystectomy clips. Tip of nasogastric tube is within the bod y of the stomach. Although sensitivity is diminished on this supine exam, there is no evidence for fr ee air. There is a moderate amount of stool within the right colon. Colonic dilatation is similar to prior exam. Transverse colon measures up to 10.2 cm in caliber. IMPRESSION: 1. Persistent marked colonic dilatation. This may reflect a colonic obstruction or pseudoobstruction/ Karma syndrome. 2. Tip of nasogastric tube within the body of the stomach. ACT 112: Negative or not required by law. Electronically signed by: João Villatoro M.D. 06/30/2021 8:53 AM
--- NOTE | 2021-06-30 09:16 | Surgery Progress Note ---
Date of Service June 30, 2021 Assessment & Plan (1) [place]'s syndrome: Plan: 75 y/o female with colonic distention, likely pseudo-obstruction WBC 12, afebrile, exam benign patient anticipating decompression today Admission and Anticipated Discharge Date Admission Date: June 28, 2021 Supervising Physician Co-Signing Physician Notes pnt s&e, agree with above. 75 y/o female with likely colonic pseudo-obstruction vs obstruction, minimal flatus, ng tube helped with nausea but still bloated. KUB stable. Abd distended, soft, nt. GI to scope this afternoon. No surgery for now, will await results of scope. Dr. Rocha covering over weekend. Subjective no flatus or BM, feels about the same Physical Exam Gastrointestinal (Abdomen): Inspection/Auscultation: + abdomen distended Percussion/Palpation: abdomen soft; abdomen nontender NG 50 cc Results & Data ([facility]) Vital Signs (Past 12 Hours) Vital Signs Temp Pulse Pulse Resp BP BP Pulse Ox 06/30/21 07:40 36.9 C 72 18 176/95 H 95 06/30/21 07:20 86 18 96 06/30/21 03:27 36.8 C 77 20 138/72 93 06/30/21 03:24 77 138/72 06/29/21 23:32 36.7 C 78 20 168/76 H 93 06/29/21 22:20 73 PG Care Time/CCT Total # of Minutes Spent Total Time Spent with Patient: Total time spent is greater than 50% in coordination of care (as documented) at patient's floor/unit and/or counseling patient: Coding Level of Care Code 54231 Subseq Hosp Care Lvl 1 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
[2021-06-30] MEDS: PANTOprazole 40 MG in SYRINGE 0 ML IV SCH (10:32)
[2021-06-30] MEDS: UMECLIDINIUM/VILANTEROL 62.5/25MCG 7 PUFFS/INHALER INH SCH (10:32)
--- NOTE | 2021-06-30 13:57 | Anesthesiology Consultation ---
Date of Service June 30, 2021 Assessment & Plan (1) Encounter for pre-operative examination: (2) Encounter for pre-operative examination: Chart Review Chart Review: Acceptable Risk for Surgery (patient will be evaluated by anesthesiologist prior to procedure) and Patient NOT seen in Pre Admission Testing Consults Requested none History Surgery Operation Date: 06/30/21 16:30 Proposed Procedures p Flexible Sigmoidoscopy Dr Garcia - Jennie Garcia MD Height/Weight Height: 5 ft 1 in Weight: 90.8 kg Allergies Allergy/AdvReac Type Severity Reaction Status Date / Time adhesive Allergy Intermediate RASH Verified 06/15/21 07:53 ibuprofen Allergy Intermediate RASH Verified 06/15/21 07:53 Iodinated Contrast Media Allergy Intermediate HIVES, Verified 06/15/21 07:53 EYES SWELL SHUT latex Allergy Intermediate RASH Verified 06/15/21 07:53 naproxen Allergy Intermediate SWELLING, Verified 06/15/21 07:53 RASH, HIVES Medications Home Medications Medication Instructions Recorded Confirmed Last Taken atenolol 25 mg tablet 25 mg PO QAM 08/17/18 06/28/21 06/27/21 hydrochlorothiazide 25 mg tablet 25 mg PO QAM 08/17/18 06/28/21 06/14/21 meclizine 25 mg tablet 25 mg PO Q6 PRN 08/17/18 06/28/21 Unknown omeprazole 20 mg capsule,delayed 20 mg PO BIDM 08/17/18 06/28/21 06/27/21 release potassium chloride 10 mEq 10 meq PO QAM 08/17/18 06/28/21 06/27/21 tablet,extended release dicyclomine 10 mg capsule 10 mg PO Q4 PRN 04/03/19 06/28/21 06/27/21 cholecalciferol (vitamin D3) 50 2,000 unit PO QAM 06/09/19 06/28/21 06/27/21 mcg (2,000 unit) capsule (Vitamin D3) ondansetron 4 mg disintegrating 4 mg PO Q6H PRN #14 tab 08/09/19 06/28/21 Unknown tablet nystatin 100,000 unit/gram topical 1 applic TOPICAL TID PRN 05/09/20 06/28/21 05/09/20 powder clopidogrel 75 mg tablet 75 mg PO QAM #30 tab 09/23/20 06/28/2121 albuterol sulfate 90 mcg/actuation 2 puff INHALATION Q6H PRN #18 gm 12/13/20 06/28/21 06/14/21 aerosol inhaler budesonide 0.5 mg/2 mL suspension 0.5 mg INH BID #120 ml 12/13/20 06/28/21 06/13/21 for nebulization ipratropium 0.5 mg-albuterol 3 mg 3 ml INH Q4H PRN #360 ml 12/13/20 06/28/21 06/13/21 (2.5 mg base)/3 mL nebulization soln atorvastatin 40 mg tablet (Lipitor) 40 mg PO QAM 06/05/21 06/28/21 06/15/21 05:00 docusate sodium 100 mg capsule 100 mg PO Q OTHER DAY 06/05/21 06/28/21 Unknown (Colace) umeclidinium 62.5 mcg-vilanterol 1 inh INHALATION QAM 06/05/21 06/28/21 06/15/21 05:00 25 mcg/actuation powdr for inhalation (Anoro Ellipta) losartan 50 mg tablet 50 mg PO DAILY 06/28/21 06/28/21 06/27/21 Active Medications Generic Name Dose Route Start Last Admin Trade Name Freq PRN Reason Stop Dose Admin Acetaminophen 650 mg 06/28/21 15:22 06/28/21 15:52 Acetaminophen 325 Mg Tab PO 07/28/21 15:21 650 mg Q4H PRN Administration Moderate Pain Acetaminophen 1,000 mg 06/29/21 20:17 06/30/21 10:31 Acetaminophen 1000 Mg/100 Ml Iv IV 07/02/21 20:16 1,000 mg Q8H PRN Administration fever/pain Atenolol 25 mg 06/29/21 09:00 06/29/21 10:33 Atenolol 25 Mg Tablet PO 07/29/21 08:59 Not Given QAM ELIEZER Atorvastatin Calcium 40 mg 06/29/21 09:00 06/29/21 10:34 Atorvastatin 40 Mg Tab PO 07/29/21 08:59 Not Given QAM ELIEZER Budesonide 0.5 mg 06/28/21 19:00 06/30/21 07:17 Budesonide 0.5 Mg/2 Ml Vial (Pulmicort) INH 07/28/21 18:59 0.5 mg BIDR ELIEZER Administration Clopidogrel Bisulfate 75 mg 06/29/21 09:00 06/29/21 10:33 Clopidogrel Bisulfate 75 Mg Tab PO 07/29/21 08:59 Not Given QAM ELIEZER Hydralazine HCl 10 mg 06/29/21 15:58 06/30/21 10:30 Hydralazine Hcl 20 Mg/Ml Vial IV 07/29/21 09:34 10 mg Q4H PRN Administration hypertension Hydrochlorothiazide 25 mg 06/29/21 09:00 06/29/21 10:34 Hydrochlorothiazide 25 Mg Tab PO 07/29/21 08:59 Not Given QAM ELIEZER Sodium Chloride 1,000 mls @ 50 mls/hr 06/28/21 15:22 06/30/21 03:24 Nss 1000ml IV 07/28/21 15:21 50 mls/hr .Q20H ELIEZER Administration Pantoprazole Sodium 40 mg/ 10 mls @ 5 mls/min 06/29/21 11:00 06/30/21 10:32 Syringe IV 07/29/21 10:59 5 mls/min DAILY@1100 ELIEZER Administration Promethazine HCl 12.5 mg/ 50.5 mls @ 202 mls/hr 06/29/21 12:45 06/30/21 02:37 Sodium Chloride IV 07/29/21 12:44 Infused Q6H PRN Infusion Nausea And Vomiting Losartan Potassium 50 mg 06/29/21 09:00 06/29/21 10:34 Losartan Potassium 50 Mg Tab PO 07/29/21 08:59 Not Given DAILY ELIEZER Metoprolol Tartrate 5 mg 06/29/21 16:00 06/30/21 03:24 Metoprolol Tartrate 1 Mg/Ml Vial IV 07/29/21 15:59 5 mg Q12H ELIEZER Administration Ondansetron HCl 4 mg 06/28/21 15:22 06/29/21 11:27 Ondansetron Inj 2 Mg/Ml 2 Ml Vial IV 07/28/21 15:21 4 mg Q4H PRN Administration Nausea And Vomiting Phenol 2 sprays 06/29/21 15:45 06/29/21 16:28 Chloraseptic 1.4% Soln 180 Ml Btl MT 07/29/21 15:44 2 sprays Q12H PRN Administration Sore Throat Tramadol HCl 25 - 50 mg 06/28/21 21:04 06/29/21 04:33 Tramadol Hcl 50 Mg Tablet PO 07/28/21 21:03 25 mg Q4H PRN Administration Pain Umeclidinium/Vilanterol 1 puffs 06/29/21 09:00 06/30/21 10:32 Umeclidinium/Vilanterol 62.5/25mcg 7 Puffs/Inhaler INH 07/29/21 08:59 1 puffs QAM ELIEZER Administration Past Medical History Medical History Anxiety and depression Chronic obstructive pulmonary disease nebulizer/inhalers daily and prn///2L n/c at HS/PRN Diverticulitis of colon Dysconjugate gaze History of COVID-19 diagnosed 08/2020 @ [facility]--cough, headache, fatigue--no issues now Hypokalemia Hypomagnesemia Kidney stones Multiple pulmonary nodules Nausea & vomiting On anticoagulant therapy plavix daily On home oxygen therapy 2L N/C at hs and prn Oral candidiasis Osteoarthritis Sciatic leg pain right Transient ischemic attack (TIA) (~09/18/20) per pt had mini stroke and started on plavix daily Tubulovillous adenoma of colon Urge incontinence of urine Vitamin D deficiency Past Family History Family History Brother Family history of diabetes mellitus Other No family history of adverse response to anesthesia Denies family history of Crohn's disease Colorectal cancer Ulcerative colitis Past Surgical History Surgical History H/O esophagogastroduodenoscopy "repair zenkers diverticulum" History of bilateral breast reduction surgery History of bunionectomy RT History of cataract surgery RT/LEFT History of cholecystectomy Lap cholecystectomy: 06/04/16: Grade view 2, MAC#3, ETT 7.0 at [facility] History of colonoscopy History of cystoscopy (~07/24/19) History of dilatation and curettage History of removal of cyst left hand History of right breast biopsy x2--benign History of surgical removal of right nipple History of tonsillectomy and adenoidectomy History of tooth extraction all teeth History of total hysterectomy History of ureter stent Status post biopsy of thyroid gland benign Social History Smoking Status: Never smoker tobacco type: cigarettes Hx Alcohol Use: No Hx Substance Use: No substance use type: does not use Physical Exam Vital Signs Last Vital Signs Temp 36.8 C 06/30/21 11:23 Pulse 97 H 06/30/21 14:01 Resp 24 06/30/21 14:01 BP 189/107 H 06/30/21 14:01 Pulse Ox 97 06/30/21 14:01 Testing Laboratory Results 06/30/21 05:34 06/30/21 05:34 Urine Color Yellow 06/29/21 05:40 Urine Appearance Clear (Clear) 06/29/21 05:40 Urine pH 7.0 (4.5-7.5) 06/29/21 05:40 Ur Specific [place] 1.016 (1.000-1.030) 06/29/21 05:40 Urine Protein Negative (Negative) 06/29/21 05:40 Urine Glucose (UA) Negative (Negative) 06/29/21 05:40 Urine Ketones Trace (Negative) H 06/29/21 05:40 Urine Nitrite Negative (Negative) 06/29/21 05:40 Ur Leukocyte Esterase Negative (Negative) 06/29/21 05:40 Urine WBC (Auto) 1-5 /hpf (0-5) 06/29/21 05:40 Urine RBC (Auto) 5-10 /hpf (0-4) H 06/29/21 05:40 U Hyaline Cast (Auto) 0 /lpf (0-5) 06/29/21 05:40 U Epithel Cells (Auto) 10-20 /lpf (0-5) H 06/29/21 05:40 Urine Bacteria (Auto) Negative (Negative) 06/29/21 05:40 Electrocardiogram Date: 06/28/21 Findings: + NSR @ (73) Chest X-Ray Date: 06/28/21 XR chest 1V portable INDICATION: MN ^abd pain, copd . TECHNIQUE: Single frontal radiograph of the chest was obtained. Comparison: Comparison is made to chest one view 09/18/2020 FINDINGS: No lines and tubes are seen. The cardiomediastinal silhouette is normal. The lungs are clear. No evidence of pleural effusion or pneumothorax. IMPRESSION: No acute chest disease. ACT 112: Negative or not required by law. Electronically signed by: He Paul M.D. 06/28/2021 8:04 AM Dictated: 06/28/21 0804 Echocardiogram Date: 09/21/20 EF: 55-60 LV Function: normal Other Testing CT head/brain wo con CLINICAL HISTORY: garcia COMPARISON STUDY: September 18, 2020 TECHNIQUE: Axial CT of the brain is performed from the vertex to the skull base. IV contrast was not administered for this examination. A dose lowering technique was utilized adhering to the principles of ALARA. CT DOSE: 884.08 mGy.cm FINDINGS: No intra or extra-axial mass lesions are visualized. There is no CT evidence of acute cortical infarction. There is no evidence of midline shift. There is no ac [place] hemorrhage. No acute depressed calvarial fractures are visualized. There are patchy white matter hypodensities likely on a small vessel basis. Diffuse atrophic changes of brain parenchyma are again seen. Ventricles are midline, of normal size and configuration. Partial opacification of the left maxillary sinus is again seen, unchanged since prior. The rest of visualized paranasal sinuses and mastoid air cells are patent and well-aerated. IMPRESSION: 1. No acute intracranial hemorrhage, no midline shift or space occupying lesions. 2. Atrophic changes of brain parenchyma and chronic small vessel ischemia. 3. Partial opacification of the left maxillary sinus is unchanged since prior could represent sinusitis in appropriate clinical settings. ACT 112: Negative or not required by law. The above report was generated using voice recognition software. It may contain grammatical, syntax or spelling errors. Electronically signed by: Alysia Lora DO 06/29/2021 8:01 AM Dictated: 06/29/21 0758Transcribed: 06/29/21 0758
[2021-06-30] MEDS ORDERED: ALBUT/IPRATROP 3MG/0.5MG NEB 3 ML VIAL ONE (14:02)
--- NOTE | 2021-06-30 14:05 | History & Physical Bridge Note ---
Date of Service June 30, 2021 History & Physical Bridge Note I have examined the patient, reviewed the History & Physical and in the interval since the performance of the History & Physical I have noted the following changes of clinical significance: no changes noted Flex Sig with decompression today Patient was explained in detail regarding risks, benefits, limitations and alternatives of the above endoscopic procedure. Risks of intravenous sedation used for procedure were also explained. Risks include, but not limited to perforation, bleeding, infection, respiratory distress, cardiac arrest and . Patient is also aware about the possibility of missed lesion. Patient's questions were answered. The patient verbalized understanding the information and agreed to undergo the procedure.
[2021-06-30] MEDS ORDERED: ALBUT/IPRATROP 3MG/0.5MG NEB 3 ML VIAL NEB STA (14:11)
[2021-06-30] MEDS ORDERED: MINERAL OIL 30 ML UDC ONE (14:21)
[2021-06-30] MEDS ORDERED: PROPOFOL IV EMULSION 10 MG/ML 20 ML VIAL IV ONE (14:38)
[2021-06-30] MEDS ORDERED: LIDOCAINE 2% 2 ML VIAL/AMP(20MG/ML) INFIL ONE (14:38)
--- NOTE | 2021-06-30 15:33 | XRay Report ---
XR KUB/Abdomen 1 view INDICATION: MN ^LBO s/p decompression. TECHNIQUE: 1 view of the abdomen was obtained. Comparison: None available at the time of this dictation. FINDINGS: A rectal/: Drain is seen terminating in the splenic flexure. There is interval decompression of dista l large bowel loops, prominent gas is still seen more proximally. The osseous structures are grossly unremarkable. IMPRESSION: Interval decompression of distal large bowel with residual gas dilated large bowel loops seen more pr oximally. ACT 112: Negative or not required by law. Electronically signed by: He Paul M.D. 06/30/2021 3:31 PM
--- NOTE | 2021-06-30 15:35 | Anesthesiology Progress Note ---
Date of Service June 30, 2021 Anesthesia Post Procedure Vital Signs Vital Signs: Temp Pulse Pulse Resp BP BP BP 06/30/21 15:11 85 18 167/86 H 06/30/21 14:56 84 18 166/94 H 06/30/21 14:41 93 H 18 170/93 H 06/30/21 14:08 37.8 C H 06/30/21 14:01 97 H 24 189/107 H 06/30/21 12:37 06/30/21 12:36 06/30/21 11:23 36.8 C 96 H 18 124/85 06/30/21 08:00 66 06/30/21 07:40 36.9 C 72 18 176/95 H 06/30/21 07:20 86 18 06/30/21 03:27 36.8 C 77 20 138/72 06/30/21 03:24 77 138/72 06/29/21 23:32 36.7 C 78 20 168/76 H 06/29/21 22:20 73 06/29/21 18:57 76 18 06/29/21 18:26 36.8 C 77 153/78 H 06/29/21 16:24 89 179/82 H Pulse Ox Pulse Ox 06/30/21 15:11 96 06/30/21 14:56 96 06/30/21 14:41 95 06/30/21 14:08 06/30/21 14:01 97 06/30/21 12:37 95 06/30/21 12:36 95 06/30/21 11:23 94 06/30/21 08:00 06/30/21 07:40 95 06/30/21 07:20 96 06/30/21 03:27 93 06/30/21 03:24 06/29/21 23:32 93 06/29/21 22:20 06/29/21 18:57 95 06/29/21 18:26 94 06/29/21 16:24 Pain Intensity Abdomen: Pain Intensity: 2 Head: Pain Intensity: 5 Transfer of Care Handoff Completed per policy Notes Mental Status: alert / awake / arousable Patient Amnestic to Procedure: Yes Nausea / Vomiting: adequately controlled Pain: adequately controlled Airway Patency, RR, SpO2: stable & adequate BP & HR: stable & adequate Hydration State: stable & adequate Anesthetic Complications: no major complications apparent and Pt Satisfied with anesthetic care
[2021-06-30] MEDS: ONDANSETRON INJ 2 MG/ML 2 ML VIAL IV PRN (15:41)
[2021-06-30] MEDS: CLOPIDOGREL BISULFATE 75 MG TAB PO SCH (15:41)
--- NOTE | 2021-06-30 16:31 | GI REPORT ---
Patient Name: Jayla Hayes Procedure Date: 06/30/2021 2:25 PM Date of : 1945 Admit Type: Inpatient Age: 75 Gender: Female Attending MD: Jennie Garcia MD Procedure: Flexible Sigmoidoscopy Providers: Jennie Garcia MD Referring MD: Leatha Ryan Md Indications: Abnormal CT of the GI tract, For therapy of colonic obstruction Medicines: Propofol per Anesthesia Complications: No immediate complications. Estimated Blood Loss: Estimated blood loss: none. Procedure: Pre-Anesthesia Assessment: - Prior to the procedure, a History and Physical was performed, and patient medications, allergies and sensitivities were reviewed. The patient's tolerance of previous anesthesia was reviewed. - The risks and benefits of the procedure and the sedation options and risks were discussed with the patient. All questions were answered and informed consent was obtained. - Patient identification and proposed procedure were verified prior to the procedure by the physician and the nurse. The procedure was verified in the procedure room. - Pre-procedure physical examination revealed no contraindications to sedation. After obtaining informed consent, the endoscope was passed under direct vision. Throughout the procedure, the patient's blood pressure, pulse, and oxygen saturations were monitored continuously. The Colonoscope was introduced through the anus and advanced to the left transverse colon. The flexible sigmoidoscopy was accomplished without difficulty. The patient tolerated the procedure well. The quality of the bowel preparation was poor. Findings: The perianal and digital rectal examinations were normal. The lumen of the descending colon and transverse colon was grossly dilated. A colonic decompression tube was placed. The remaining colon and the area of twisting could not be adequately examined due to poor prep however no evidence of a gross colon mass seen. Impression: - Dilated colon, successfully decompressed and a decompression tube placed. Recommendation: - Return patient to hospital [facility] for ongoing care. - Laxatives. - Flush the tube every 8 hrs. - KUB tomorrow. Jennie Garcia MD 06/30/2021 4:31:22 PM This report has been signed electronically. Note Initiated On: 06/30/2021 2:25 PM Number of Addenda: 0 I attest to the content of the Intraoperative Record and orders documented therein, exceptions below {[id number]}
--- NOTE | 2021-06-30 17:48 | Hospitalist Progress Note ---
Date of Service June 30, 2021 Assessment & Plan (1) Large bowel obstruction: Plan: 75-year-old female with PMH of IBS, GERD, HLD, obesity, sleep apnea, COPD, TIA in September 2020 on Plavix, COVID-19 in August 2020, recent scope on 06/15/2021 [WNL except for internal hemorrhoids] presented 06/28 our ED with abdominal pain since 1 day [employer] and was found to have large bowel obstruction on imaging. She is being managed for the following: #. Last bowel obstruction No BM since 1 day [employer], patient moving gas. Hx of having c-scope on 06/15/21, normal colon, moderate internal hemorrhoids noted. hx of abdominal surgeries includes cholecystectomy 2017 and hysterectomy in 1984 Admitting CTAP positive for high-grade obstruction of the large bowel. Follow-up KUBworsening gaseous dilatation of the bowel loops GI consulted: Recent scope WNL, flexible sigmoidoscopy 06/30successful decompression of the colon and decompression tube placed. Recommends laxatives. General surgery consulted: Likely pseudoobstruction, no surgical intervention currently until repeat colonoscopy becomes unsuccessful. Continue with supportive management/IV hydration/n.p.o./NG tube decompression/nausea and vomiting control. Ambulate as able Hold p.o. medications, resume when able #. Hypertension Blood pressure elevated, likely secondary to acute distress Continue with scheduled IV metoprolol As needed medication added, can alternate between labetalol and hydralazine to keep blood pressure below 160 mmHg. Continue to monitor #. GERD/IBS/morbid obesity/sleep apnea/COPD/dyslipidemia: Use medications in IV form, resume home meds when able. Encourage diet and exercise through the hospital stay and upon discharge. Continue inhaler medications. Disposition: PT/OT, CM to assist with DC planning. Admission and Anticipated Discharge Date Admission Date: June 28, 2021 Subjective Patient was lying semiupright in bed, on 2 L oxygen, in mild distress, NG tube suction in situ, no new events overnight. Patient reports same level of belly pain and nausea today but reports improvement in her vomiting. Patient has not moved bowel but has moved gas. Reports improvement in her headache. Denies any other review of symptoms. Physical Exam Physical Exam: GENERAL: Alert and oriented x3. mild distress, on 2L. HEENT: No pallor, no icterus. Pupils equal, round and reactive to light. Oral mucosa moist. NECK: No JVD, no neck masses. HEART: S1 and S2 heard. Regular rate and rhythm. No murmur, no gallop. RESPIRATORY SYSTEM: Normal AP diameter. No accessory muscle use. No wheezing, no crackles. ABDOMEN: Soft, bowel sounds present, epigastric and lower belly tenderness, no distention. CENTRAL NERVOUS SYSTEM: No facial droop. Speech is clear. Obeys simple commands. Moves extremities. EXTREMITIES: Trace edema, no erythema seen. Results & Data Results & Data ([facility]) Vital Signs (Past 12 Hours) Vital Signs Temp Pulse Pulse Resp BP BP BP 06/30/21 17:31 06/30/21 16:00 36.8 C 06/30/21 15:45 85 164/90 H 06/30/21 15:11 85 18 167/86 H 06/30/21 14:56 84 18 166/94 H 06/30/21 14:41 93 H 18 170/93 H 06/30/21 14:08 37.8 C H 06/30/21 14:01 97 H 24 189/107 H 06/30/21 12:37 06/30/21 12:36 06/30/21 11:23 36.8 C 96 H 18 124/85 06/30/21 08:00 66 06/30/21 07:40 36.9 C 72 18 176/95 H 06/30/21 07:20 86 18 Pulse Ox Pulse Ox 06/30/21 17:31 92 06/30/21 16:00 06/30/21 15:45 06/30/21 15:11 96 06/30/21 14:56 96 06/30/21 14:41 95 06/30/21 14:08 06/30/21 14:01 97 06/30/21 12:37 95 06/30/21 12:36 95 06/30/21 11:23 94 06/30/21 08:00 06/30/21 07:40 95 06/30/21 07:20 96
[2021-06-30] MEDS: DOCUSATE SODIUM/SENNA 50/8.6MG TAB PO SCH (21:58)
[2021-07-01] MEDS: SODIUM CHLORIDE 0.9% 1000ML 1,000 ML IV SCH (00:28)
[2021-07-01] MEDS: METOPROLOL TARTRATE 1 MG/ML VIAL IV SCH ×2 (04:09→16:52)
[2021-07-01 05:46] LABS: Hematocrit (blood only) 45.9 % (37-47); Mean Corpuscular Hemoglobin 30.1 pg (25-34); Mean Corpuscular Hgb Conc 30.5 g/dL (32-36); Mean Corpuscular Volume 98.7 fL (80-100); Mean Platelet Volume 9.4 fL (7.4-10.4); Platelet Count 186 K/uL (130-400); RDW Coefficient of Variation 14.2 % (11.5-14.5); RDW Standard Deviation 50.5 fL (36.4-46.3); Red Blood Count 4.65 M/uL (4.2-5.4); White Blood Count 11.46 K/uL (4.8-10.8)
[2021-07-01 06:19] LABS: BUN Creatinine Ratio 19.7 (10-20); Calcium 9.2 mg/dl (8.5-10.1); Est GFR (African American) 89.1 ml/min; Est GFR (Non-African American) 76.9 ml/min; Potassium 3.7 mmol/L (3.5-5.1)
[2021-07-01] MEDS: BUDESONIDE 0.5 MG/2 ML VIAL (PULMICORT) INH SCH ×2 (07:12→19:52)
--- NOTE | 2021-07-01 08:43 | Surgery Progress Note ---
Date of Service July 01, 2021 Assessment & Plan (1) [place]'s syndrome: Plan: Pseudo-obstruction, better following colonoscopic decompression. NG output has remained low (increase is with start of sips), OK to d/c ng. Await return of bowel function - likely can advance diet tomorrow. Admission and Anticipated Discharge Date Admission Date: June 28, 2021 Subjective No nausea. Feels much better. Wondering when she can eat. s/p colonoscopic decompression/ rectal tube yesterday. Physical Exam Cardiovascular: Rate/Rhythm: regular rate Heart Sounds: no murmur Gastrointestinal (Abdomen): Inspection/Auscultation: abdomen normal to inspection, + abdomen distended (mild) and + hypoactive bowel sounds Percussion/Palpation: abdomen soft; abdomen nontender Neurologic: awake; no focal motor deficits Psychiatric: A+Ox3, euthymic affect Results & Data ([facility]) Vital Signs (Past 12 Hours) Vital Signs Temp Pulse Pulse Resp BP BP BP 07/01/21 08:00 36.7 C 72 18 166/82 H 07/01/21 07:13 75 16 07/01/21 07:00 68 07/01/21 04:09 76 167/91 H 07/01/21 02:45 36.5 C 71 17 145/76 H 06/30/21 22:50 37.2 C 84 19 146/82 H 06/30/21 22:25 92 H Pulse Ox 07/01/21 08:00 93 07/01/21 07:13 97 07/01/21 07:00 07/01/21 04:09 07/01/21 02:45 91 06/30/21 22:50 93 06/30/21 22:25 Laboratory Results Abnormal lab results 07/01/21 07/01/21 Range/Units 05:35 05:35 WBC 11.46 H (4.8-10.8) K/uL MCHC 30.5 L (32-36) g/dL RDW Std Deviation 50.5 H (36.4-46.3) fL Anion Gap 2.0 L (3-11)
[2021-07-01] MEDS: DOCUSATE SODIUM/SENNA 50/8.6MG TAB PO SCH ×3 (08:49→22:15)
[2021-07-01] MEDS: UMECLIDINIUM/VILANTEROL 62.5/25MCG 7 PUFFS/INHALER INH SCH (08:50)
[2021-07-01] MEDS: D5W AND NSS 1,000 ML IV SCH ×2 (09:08→22:12)
[2021-07-01] MEDS: THIAMINE HCL 200 MG in SODIUM CHLORIDE 0.9% 50 ML IV SCH (09:11)
[2021-07-01] MEDS: LABETALOL HCL IV 5 MG/ML 20ML IV PRN (09:25)
--- NOTE | 2021-07-01 09:28 | XRay Report ---
KUB HISTORY: Follow up study in a patient with large bowel dilation bowel obs ffup COMPARISON: KUB 06/30/2021, CT abdomen and pelvis 06/28/2021. FINDINGS: A rectal tube is again noted with distal tip projected over the transverse colon. Enteric t ube is present with distal tip projected over the mid stomach. Nonobstructive bowel gas pattern. Chol ecystectomy. Punctate bilateral renal calculi. Phleboliths of the pelvis. No pneumoperitoneum or pne umatosis. No fracture. IMPRESSION: 1. Nonobstructive bowel gas pattern with rectal and enteric tubes. 2. Nonobstructing bilateral nephrolithiasis. ACT 112: Negative or not required by law. The above report was generated using voice recognition software. It may contain grammatical, syntax o r spelling errors. Electronically signed by: Jame Cheng M.D. 07/01/2021 9:27 AM
[2021-07-01] MEDS: CLOPIDOGREL BISULFATE 75 MG TAB PO SCH ×2 (09:30→09:33)
[2021-07-01] MEDS: CHLORASEPTIC 1.4% SOLN 180 ML BTL MT PRN ×2 (09:30→16:54)
[2021-07-01] MEDS: HEPARIN SOD 5,000 UNIT/0.5 ML VIAL SQ SCH ×2 (09:33→22:14)
[2021-07-01] MEDS: PANTOprazole 40 MG in SYRINGE 0 ML IV SCH (10:35)
[2021-07-01] MEDS: ACETAMINOPHEN 1000 MG/100 ML IV IV PRN (10:41)
--- NOTE | 2021-07-01 14:12 | Hospitalist Progress Note ---
Date of Service July 01, 2021 Assessment & Plan (1) Large bowel obstruction: Plan: 75-year-old female with PMH of IBS, GERD, HLD, obesity, sleep apnea, COPD, TIA in September 2020 on Plavix, COVID-19 in August 2020, recent scope on 06/15/2021 [WNL except for internal hemorrhoids] presented 06/28 our ED with abdominal pain since 1 day SECOND CHEF and was found to have large bowel obstruction on imaging. She is being managed for the following: #. Last bowel obstruction No BM since 1 day SECOND CHEF, patient moving gas. Hx of having c-scope on 06/15/21, normal colon, moderate internal hemorrhoids noted. hx of abdominal surgeries includes cholecystectomy 2017 and hysterectomy in 1984 Admitting CTAP positive for high-grade obstruction of the large bowel. Follow-up KUBworsening gaseous dilatation of the bowel loops 06/30 status post colonoscopy with decompression and decompression tube placement. GI consulted: Recent scope WNL, flexible sigmoidoscopy 06/30successful decompression of the colon and decompression tube placed. Recommends laxatives. General surgery consulted: Likely pseudoobstruction, no surgical intervention currently until repeat colonoscopy becomes unsuccessful. NG tube can be discontinued, advance diet tomorrow. Continue with supportive management/IV hydration/sips/nausea and vomiting control. Ambulate as able Hold p.o. medications, resume when able #. Hypertension Blood pressure elevated, likely secondary to acute distress Continue with scheduled IV metoprolol As needed medication added, can alternate between labetalol and hydralazine to keep blood pressure below 160 mmHg. Blood pressure under control Continue to monitor #. GERD/IBS/morbid obesity/sleep apnea/COPD/dyslipidemia: Use medications in IV form, resume home meds when able. Encourage diet and exercise through the hospital stay and upon discharge. Continue inhaler medications. Disposition: PT/OT. PT recommending home with family assisting. CM to assist with DC planning. Admission and Anticipated Discharge Date Admission Date: June 28, 2021 Subjective Patient sitting up in chair, on 2 L nasal cannula oxygen, NAD, no issues overnight. Patient reports improvement in her nausea/vomiting/belly pain. Rectal tube in situ noted. Patient has not moved bowel. NG tube in situ noted. Denies other review of symptoms. Physical Exam Physical Exam: GENERAL: Alert and oriented x3. NAD, on 2L. HEENT: No pallor, no icterus. Pupils equal, round and reactive to light. Oral mucosa moist. NECK: No JVD, no neck masses. HEART: S1 and S2 heard. Regular rate and rhythm. No murmur, no gallop. RESPIRATORY SYSTEM: Normal AP diameter. No accessory muscle use. No wheezing, no crackles. ABDOMEN: Soft, bowel sounds present, epigastric and lower belly tenderness, no distention. CENTRAL NERVOUS SYSTEM: No facial droop. Speech is clear. Obeys simple commands. Moves extremities. EXTREMITIES: Trace edema, no erythema seen. NG tube in situ Rectal tube in situ 2 L nasal cannula oxygen Results & Data Results & Data ([facility]) Vital Signs (Past 12 Hours) Vital Signs Temp Pulse Pulse Resp BP BP BP 07/01/21 12:10 36.5 C 73 16 128/76 07/01/21 10:30 76 147/78 H 07/01/21 08:00 36.7 C 72 18 166/82 H 07/01/21 07:13 75 16 07/01/21 07:00 68 07/01/21 04:09 76 167/91 H 07/01/21 02:45 36.5 C 71 17 145/76 H Pulse Ox 07/01/21 12:10 92 07/01/21 10:30 07/01/21 08:00 93 07/01/21 07:13 97 07/01/21 07:00 07/01/21 04:09 07/01/21 02:45 91
--- NOTE | 2021-07-01 15:32 | Gastroenterology Progress Note ---
Date of Service July 01, 2021 Assessment & Plan (1) Sanborn's syndrome: (2) Abdominal bloating: Plan: s/p Colonic decompression with Rectal tube placement Still not passing gas or having BM's as of this time Continue current therapy and supportive care Admission and Anticipated Discharge Date Admission Date: June 28, 2021 Subjective Feeling better today. Abdomen less distended per patient. Nursing and patient report no BM, Flatus or output from rectal tube. She denies any fevers, chills, nausea, vomiting, hematemesis, melena or hematochezia. No further complaints. Physical Exam Constitutional: WD/WN, vitals as above Respiratory: normal respiratory effort, lungs clear to auscultation Cardiovascular: RRR, no murmur, no edema Gastrointestinal (Abdomen): Inspection/Auscultation: abdomen not distended and + abnormal bowel sounds Percussion/Palpation: abdomen soft; abdomen nontender Skin: no rashes, warm and dry Psychiatric: A+Ox3, euthymic affect Results & Data Results & Data ([facility]) Vital Signs (Past 12 Hours) Vital Signs Temp Pulse Pulse Resp BP BP BP 07/01/21 12:10 36.5 C 73 16 128/76 07/01/21 10:30 76 147/78 H 07/01/21 08:00 36.7 C 72 18 166/82 H 07/01/21 07:13 75 16 07/01/21 07:00 68 07/01/21 04:09 76 167/91 H Pulse Ox 07/01/21 12:10 92 07/01/21 10:30 07/01/21 08:00 93 07/01/21 07:13 97 07/01/21 07:00 07/01/21 04:09 PG Care Time/CCT Total # of Minutes Spent Total Time Spent with Patient: Total time spent is greater than 50% in coordination of care (as documented) at patient's floor/unit and/or counseling patient: Coding Level of Care Code 70737 Subseq Hosp Care Lvl 2 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
[2021-07-01] MEDS ORDERED: LACTULOSE SYRUP 30 GM/45 ML UDP NG STA (22:38)
[2021-07-01] MEDS ORDERED: POLYETHYLENE (MIRALAX) 17 GM PACK NG STA (22:39)
[2021-07-02] MEDS: METOPROLOL TARTRATE 1 MG/ML VIAL IV SCH ×2 (04:03→15:06)
[2021-07-02] MEDS: ONDANSETRON INJ 2 MG/ML 2 ML VIAL IV PRN (04:28)
[2021-07-02] MEDS: ACETAMINOPHEN 1000 MG/100 ML IV IV PRN (04:42)
[2021-07-02] MEDS: BUDESONIDE 0.5 MG/2 ML VIAL (PULMICORT) INH SCH ×2 (07:11→19:14)
[2021-07-02] MEDS: CHLORASEPTIC 1.4% SOLN 180 ML BTL MT PRN (07:30)
[2021-07-02] MEDS: HEPARIN SOD 5,000 UNIT/0.5 ML VIAL SQ SCH ×2 (08:56→20:36)
[2021-07-02] MEDS: DOCUSATE SODIUM/SENNA 50/8.6MG TAB PO SCH ×3 (08:58→20:36)
[2021-07-02] MEDS: CLOPIDOGREL BISULFATE 75 MG TAB PO SCH ×2 (08:59→10:26)
[2021-07-02] MEDS: UMECLIDINIUM/VILANTEROL 62.5/25MCG 7 PUFFS/INHALER INH SCH (08:59)
[2021-07-02] MEDS: THIAMINE HCL 200 MG in SODIUM CHLORIDE 0.9% 50 ML IV SCH (09:08)
[2021-07-02] MEDS ORDERED: CALCIUM CARBONATE 500 MG CHEWABLE TAB PO PRN (09:09)
[2021-07-02] MEDS: POLYETHYLENE (MIRALAX) 17 GM PACK PO PRN (10:32)
[2021-07-02] MEDS: PANTOprazole 40 MG in SYRINGE 0 ML IV SCH (10:52)
--- NOTE | 2021-07-02 10:57 | Surgery Progress Note ---
Date of Service July 02, 2021 Assessment & Plan (1) Karma's syndrome: Plan: Pseudo-obstruction, better following colonoscopic decompression. Tolerating clear liquids. Xray done shows nonobstructive pattern. OK to advance diet as tolerated. Can pull rectal tube if OK with GI. Admission and Anticipated Discharge Date Admission Date: June 28, 2021 Subjective Feeling better today. No abdominal pain. Tolerating clear liquid diet. Physical Exam Cardiovascular: Rate/Rhythm: regular rate Heart Sounds: no murmur Gastrointestinal (Abdomen): Inspection/Auscultation: abdomen normal to inspection (rectal tube in place, minimal output) and normal bowel sounds; abdomen not distended (mild) Percussion/Palpation: abdomen soft; abdomen nontender Neurologic: awake; no focal motor deficits Psychiatric: A+Ox3, euthymic affect Results & Data ([facility]) Vital Signs (Past 12 Hours) Vital Signs Temp Pulse Pulse Resp BP BP Pulse Ox 07/02/21 07:12 63 18 96 07/02/21 06:52 36.5 C 69 18 148/75 H 90 07/02/21 04:03 71 174/84 H 07/02/21 03:14 36.9 C 69 18 180/84 H 95 07/02/21 00:00 73 07/01/21 23:00 37.2 C 84 19 180/85 H 93
--- NOTE | 2021-07-02 11:07 | Gastroenterology Progress Note ---
Date of Service July 02, 2021 Assessment & Plan (1) Karma's syndrome: (2) Abdominal bloating: Plan: Symptoms have resolved NG tube was removed earlier today OK to remove Rectal tube Advance diet as tolerated Recommend Miralax 17 g po BID in 8 oz glass of water Recommend Colace 100 mg by mouth at bedtime daily Admission and Anticipated Discharge Date Admission Date: June 28, 2021 Subjective Did not physically see patient, as she was in the bathroom. I did speak with her through the door, and nurse was present. She had a large amount of flatus and several large BM's over the past 12 hours. She states she is feeling much better. Denies any fevers, chills, nausea, vomiting, abdominal pain, melena, hematochezia or hematemesis. She is asking for an advancement of her diet. Review of Systems Constitutional: as per Subjective / HPI Eyes: as per Subjective / HPI Ear, Nose, Mouth, Throat: as per Subjective / HPI Respiratory: as per Subjective / HPI Cardiovascular: as per Subjective / HPI Gastrointestinal: as per Subjective / HPI Musculoskeletal: as per Subjective / HPI Integumentary: as per Subjective / HPI Neurologic: as per Subjective / HPI Psychiatric: as per Subjective / HPI Endocrine: as per Subjective / HPI Hematologic / Lymphatic: as per Subjective / HPI Allergy / Immunological: as per Subjective / HPI Results & Data Results & Data ([facility]) Vital Signs (Past 12 Hours) Vital Signs Temp Pulse Pulse Resp BP BP Pulse Ox 07/02/21 07:12 63 18 96 07/02/21 06:52 36.5 C 69 18 148/75 H 90 07/02/21 04:03 71 174/84 H 07/02/21 03:14 36.9 C 69 18 180/84 H 95 07/02/21 00:00 73 PG Care Time/CCT Total # of Minutes Spent Total Time Spent with Patient: Total time spent is greater than 50% in coordination of care (as documented) at patient's floor/unit and/or counseling patient: Coding Level of Care Code 49364 Subseq Hosp Care Lvl 3 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
[2021-07-02] MEDS: D5W AND NSS 1,000 ML IV SCH (14:20)
[2021-07-02] MEDS: ACETAMINOPHEN 325 MG TAB PO PRN (14:22)
--- NOTE | 2021-07-02 15:11 | Hospitalist Progress Note ---
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 She is being managed for the following: #. 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 Hx of having c-scope on 06/15/21, normal colon, moderate internal hemorrhoids noted. hx of abdominal surgeries includes cholecystectomy 2017 and hysterectomy in 1984 Admitting CTAP positive for high-grade obstruction of the large bowel. Follow-up KUBworsening gaseous dilatation of the bowel loops 06/30 status post colonoscopy with decompression and decompression tube placement. GI consulted: Recent scope WNL, flexible sigmoidoscopy 06/30successful decompression of the colon and decompression tube placed. Recommends laxatives. General surgery consulted: Likely pseudoobstruction, no surgical intervention currently until repeat colonoscopy becomes unsuccessful. Bowel movements resumed, remove NGT, patient on clear liquid diet, advance as tolerated Ambulate as able Resume p.o. home meds. #. Hypertension Blood pressure elevated, likely secondary to acute distress DC IV metoprolol. Resume home meds Use as needed BP meds to control hypertension, can alternate between labetalol and hydralazine to keep blood pressure below 160 mmHg. Blood pressure under control Continue to monitor #. GERD/IBS/morbid obesity/sleep apnea/COPD/dyslipidemia: Use medications in IV form, resume home meds when able. Encourage diet and exercise through the hospital stay and upon discharge. Continue inhaler medications. Disposition: PT/OT. PT recommending home with family assisting. CM to assist with DC planning. Expect discharge in next day. Admission and Anticipated Discharge Date Admission Date: June 28, 2021 Subjective Patient lying in bed, on 2 L nasal cannula oxygen, NAD. Patient reported several large bowel movements overnight, feeling comfortable. Denies belly pain/increased shortness of breath/chest pain/other review of symptoms. We will take her NG tube out and put her on clear liquid, advance diet as tolerated. Physical Exam Physical Exam: GENERAL: Alert and oriented x3. NAD, on 2L. HEENT: No pallor, no icterus. Pupils equal, round and reactive to light. Oral mucosa moist. NECK: No JVD, no neck masses. HEART: S1 and S2 heard. Regular rate and rhythm. No murmur, no gallop. RESPIRATORY SYSTEM: Normal AP diameter. No accessory muscle use. No wheezing, no crackles. ABDOMEN: Soft, bowel sounds present, epigastric and lower belly tenderness, no distention. CENTRAL NERVOUS SYSTEM: No facial droop. Speech is clear. Obeys simple commands. Moves extremities. EXTREMITIES: Trace edema, no erythema seen. NG tube in situ Rectal tube in situ 2 L nasal cannula oxygen Results & Data Results & Data ([facility]) Vital Signs (Past 12 Hours) Vital Signs Temp Pulse Pulse Resp BP BP Pulse Ox 07/02/21 11:29 36.6 C 74 18 156/76 H 90 07/02/21 07:12 63 18 96 07/02/21 06:52 36.5 C 69 18 148/75 H 90 07/02/21 04:03 71 174/84 H 07/02/21 03:14 36.9 C 69 18 180/84 H 95
[2021-07-03] MEDS: LABETALOL HCL IV 5 MG/ML 20ML IV PRN (04:21)
[2021-07-03] MEDS: BUDESONIDE 0.5 MG/2 ML VIAL (PULMICORT) INH SCH (07:54)
--- NOTE | 2021-07-03 08:02 | Surgery Progress Note ---
Date of Service July 03, 2021 Assessment & Plan (1) Chico's syndrome: Plan: improved after decompression will sign off Admission and Anticipated Discharge Date Admission Date: June 28, 2021 Subjective tolerating regular diet, passing flatus Physical Exam Gastrointestinal (Abdomen): Inspection/Auscultation: abdomen not distended Percussion/Palpation: abdomen soft; abdomen nontender Results & Data ([facility]) Vital Signs (Past 12 Hours) Vital Signs Temp Pulse Pulse Resp BP Pulse Ox 07/03/21 07:55 72 17 92 07/03/21 07:00 68 07/03/21 05:01 67 163/90 H 07/03/21 04:16 36.6 C 74 14 170/89 H 96 07/02/21 22:31 66 07/02/21 22:11 36.8 C 79 18 154/80 H 92 PG Care Time/CCT Total # of Minutes Spent Total Time Spent with Patient: Total time spent is greater than 50% in coordination of care (as documented) at patient's floor/unit and/or counseling patient: Coding Level of Care Code 14774 Subseq Hosp Care Lvl 1 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
[2021-07-03 08:08] LABS: Hematocrit (blood only) 42.5 % (37-47); Hemoglobin 13.3 g/dL (12.0-16.0); Mean Corpuscular Hemoglobin 30.8 pg (25-34); Mean Corpuscular Hgb Conc 31.3 g/dL (32-36); Mean Corpuscular Volume 98.4 fL (80-100); Mean Platelet Volume 9.7 fL (7.4-10.4); Platelet Count 196 K/uL (130-400); RDW Standard Deviation 50.1 fL (36.4-46.3); Red Blood Count 4.32 M/uL (4.2-5.4); White Blood Count 7.77 K/uL (4.8-10.8)
--- NOTE | 2021-07-03 08:49 | Gastroenterology Progress Note ---
Date of Service July 03, 2021 Assessment & Plan (1) Large bowel obstruction: Plan: Pt is a 75 y/o female admitted w large bowel obstruction, colonic distension s/p endoscopic decompression on 06/30/2021. Currently doing well, tolerating solids and passing flatus & stools. - Recommend daily bowel regimen: Miralax 17g BID + Dulcolax 10mg qHS - Avoid narcotics - Per Surgery no surgical plans - GI to sign off; pls recall prn Admission and Anticipated Discharge Date Admission Date: June 28, 2021 Supervising Physician Co-Signing Physician Notes Attg add: I interviewed and examined pt, reviewed chart and labs. Pt with resolution of large bowel obstruction. Recommend bowel recommendation on discharge. Subjective Pt passing stools and flatus. Last BM overnight. She ate solid meals for breakfast. Denies abd pain, n/v. Review of Systems Review of Systems: All systems reviewed & are unremarkable except as noted in HPI & below Physical Exam Constitutional: WD/WN, vitals as above well groomed, cooperative and comfortable Eyes: PERRL, conjunctivae normal, anicteric sclerae ENMT: external ear and nose normal, oropharynx normal Respiratory: normal respiratory effort, lungs clear to auscultation Cardiovascular: RRR, no murmur, no edema Gastrointestinal (Abdomen): normal bowel sounds, soft, nontender, no hepatosplenomegaly Skin: no rashes, warm and dry no jaundice Psychiatric: A+Ox3, euthymic affect Lymphatic: no lymphedema Results & Data ([facility]) Vital Signs (Past 12 Hours) Vital Signs Temp Pulse Pulse Resp BP Pulse Ox 07/03/21 08:03 37.2 C 74 16 161/82 H 91 07/03/21 07:55 72 17 92 07/03/21 07:00 68 07/03/21 05:01 67 163/90 H 07/03/21 04:16 36.6 C 74 14 170/89 H 96 07/02/21 22:31 66 07/02/21 22:11 36.8 C 79 18 154/80 H 92
[2021-07-03] MEDS: DOCUSATE SODIUM/SENNA 50/8.6MG TAB PO SCH (09:02)
[2021-07-03] MEDS: CLOPIDOGREL BISULFATE 75 MG TAB PO SCH (09:02)
[2021-07-03] MEDS: UMECLIDINIUM/VILANTEROL 62.5/25MCG 7 PUFFS/INHALER INH SCH (09:02)
[2021-07-03] MEDS: hydroCHLOROthiazide 25 MG TAB PO SCH (10:01)
[2021-07-03] MEDS: ATORVASTATIN 40 MG TAB PO SCH (10:01)
[2021-07-03] MEDS: ATENOLOL 25 MG TABLET PO SCH (10:01)
[2021-07-03] MEDS: HEPARIN SOD 5,000 UNIT/0.5 ML VIAL SQ SCH (10:02)
[2021-07-03] MEDS: POLYETHYLENE (MIRALAX) 17 GM PACK PO PRN (10:06)
[2021-07-03] MEDS ORDERED: NAPHAZOLIN/PHENIRAMIN OPH SOLN 75 DROPS/5 ML BTL OP PRN (10:07)
[2021-07-03] MEDS: LOSARTAN POTASSIUM 50 MG TAB PO SCH (10:34)
[2021-07-03] MEDS: PANTOprazole 40 MG in SYRINGE 0 ML IV SCH (10:42)
--- NOTE | 2021-07-03 16:10 | Discharge Summary ---
Date of Service July 03, 2021 Admission HPI Per Admitting Provider This is a 75-year-old female with past medical history of IBS, GERD, HLD, obesity, sleep apnea, COPD, hx of TIA in Sep 2020 on plavix, and hx of COVID 19 infection in Aug 2020, who recently underwent colonoscopy by Dr. Rocha on 06/15/21. The procedure was tolerated well, impression was internal hemorrhoids which were moderate, examination was otherwise normal and no specimens were collected. She was recommended for 5-year surveillance. Abdominal surgical history includes cholecystectomy 3 years ago as well as hysterectomy in 1984. She presents today with abdominal pain and found to have a large bowel obstr uction. She reports that her pain started last evening, and that she last ate supper last night without difficulty. She developed worsening bloating in her abdomen, and last move her bowels yesterday morning but it was a smaller than normal amount. Denies hematochezia, BRBPR, blood on toilet paper. This morning she was passing gas but not anymore. Nausea has been ongoing for many months, and within the past few months she notices a dairy intolerance. Denies any other acute complaints. Admission Exam Per Admitting Provider GENERAL: Alert and oriented x3. NAD, on 2L. HEENT: No pallor, no icterus. Pupils equal, round and reactive to light. Oral mucosa moist. NECK: No JVD, no neck masses. HEART: S1 and S2 heard. Regular rate and rhythm. No murmur, no gallop. RESPIRATORY SYSTEM: Normal AP diameter. No accessory muscle use. No wheezing, no crackles. ABDOMEN: Soft, bowel sounds present, epigastric and lower belly tenderness, no distention. CENTRAL NERVOUS SYSTEM: No facial droop. Speech is clear. Obeys simple commands. Moves extremities. EXTREMITIES: Trace edema, no erythema seen. Principal Diagnosis Large bowel obstruction Discharge Exam GENERAL: Alert and oriented x3. NAD, on 2L. HEENT: No pallor, no icterus. Pupils equal, round and reactive to light. Oral mucosa moist. NECK: No JVD, no neck masses. HEART: S1 and S2 heard. Regular rate and rhythm. No murmur, no gallop. RESPIRATORY SYSTEM: Normal AP diameter. No accessory muscle use. No wheezing, no crackles. ABDOMEN: Soft, bowel sounds present, epigastric and lower belly tenderness, no distention. CENTRAL NERVOUS SYSTEM: No facial droop. Speech is clear. Obeys simple commands. Moves extremities. EXTREMITIES: Trace edema, no erythema seen. Discharge Data Allergies Allergy/AdvReac Type Severity Reaction Status Date / Time adhesive Allergy Intermediate RASH Verified 06/15/21 07:53 ibuprofen Allergy Intermediate RASH Verified 06/15/21 07:53 Iodinated Contrast Media Allergy Intermediate HIVES, Verified 06/15/21 07:53 EYES SWELL SHUT latex Allergy Intermediate RASH Verified 06/15/21 07:53 naproxen Allergy Intermediate SWELLING, Verified 06/15/21 07:53 RASH, HIVES Consultations 06/28/21 10:16 ED Decision to Admit Stat 06/28/21 10:50 Consult Gastroenterology Routine 06/28/21 20:50 Consult General Surgery Routine Procedures Performed Operation Date: 06/30/21 16:30 Actual Procedures p Flexible Sigmoidoscopy Decomp Tube Place - Jennie Garcia MD Ordered Studies 06/28/21 06:42 CT abd pelvis wo con Stat 06/28/21 21:05 CT head/brain wo con Urgent Hospital Course (1) Large bowel obstruction: 75-year-old female with PMH of IBS, GERD, HLD, obesity, sleep apnea, COPD, TIA in September 2020 on Plavix, COVID-19 in August 2020, recent scope on 06/15/2021 [WNL except for internal hemorrhoids] presented 06/28 our 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 She is being managed for the following: #. 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 Hx of having c-scope on 06/15/21, normal colon, moderate internal hemorrhoids noted. hx of abdominal surgeries includes cholecystectomy 2017 and hysterectomy in 1984 Admitting CTAP positive for high-grade obstruction of the large bowel. Follow-up KUBworsening gaseous dilatation of the bowel loops 06/30 status post colonoscopy with decompression and decompression tube placement. GI consulted: Recent scope WNL, flexible sigmoidoscopy 06/30successful decompression of the colon and decompression tube placed. Recommends laxatives. General surgery consulted: Likely pseudoobstruction, no surgical intervention currently until repeat colonoscopy becomes unsuccessful. Bowel movements resumed, patient tolerated diet well, patient discharged on troy wel regimen as per GI recommendation. #. Hypertension Blood pressure elevated, likely secondary to acute distress DC IV metoprolol. Resume home meds Use as needed BP meds to control hypertension, can alternate between labetalol and hydralazine to keep blood pressure below 160 mmHg. Blood pressure under control Continue to monitor #. GERD/IBS/morbid obesity/sleep apnea/COPD/dyslipidemia: Use medications in IV form, resume home meds when able. Encourage diet and exercise through the hospital stay and upon discharge. Continue inhaler medications. Patient discharged to home with family assisting with the following instruction at the time of discharge: Follow-up with your primary care physician within a week time. Take medications as prescribed. For your itchy eyes, you were given an eyedrop to use up to 3 times a day as needed, please do not use it more than 5 to 7 days without having your PCP evaluate you. Maintain eye hygiene. Follow-up with GI in 2 to 3 months. Total Time Total Time Spent Total Time Spent (In Minutes): 40 Discharge Plan Discharge Items Patient Disposition: Home - Self-Care Reason For Visit: LARGE BOWEL OBSTRUCTION Discharge Diagnosis: Large bowel obstruction Activity: Resume your previous activity Non-emergency contact: Primary Care Provider Call non-emergency contact if: you have any medication questions and your symptoms worsen Follow-up/Referrals: Yariel Cardoza MD [Primary Care Provider] - (Date & Time 07/10/2021 10:00 AM Provider Josie Ryan PA-C Department Family Medicine [facility] ) Gianna Stevneson CRNP [Nurse Practitioner] - (Date & Time 09/11/2021 9:30 AM Provider SAMIR Richey Department Gastroenterology, [facility] ) Diet: Heart Healthy Addtl Attending Provider Instructions: Follow-up with your primary care physician within a week time. Take medications as prescribed. For your itchy eyes, you were given an eyedrop to use up to 3 times a day as needed, please do not use it more than 5 to 7 days without having your PCP evaluate you. Maintain eye hygiene. Follow-up with GI in 2 to 3 months. Pending Studies at Discharge: No Stand-Alone Forms: My [employer], Smoking Cessation Medications and DC Order Prescriptions: New Naphcon-A 0.025-0.3 % Drops 1 drp ophthalmic (eye) Q8H PRN (Reason: eye irritation) 7 Days Qty: 15 RF: 0 polyethylene glycol 3350 [Miralax] 17 gram Powder In Packet 17 g PO BID Qty: 60 RF: 0 bisacodyl [Dulcolax (bisacodyl)] 5 mg tablet,delayed release (DR/EC) 10 mg PO HS Qty: 60 RF: 0 Continued albuterol sulfate 90 mcg/actuation HFA aerosol inhaler 2 puff INHALATION Q6H PRN (Reason: Wheezing or shortness of breath) Qty: 18 RF: 3 budesonide 0.5 mg/2 mL suspension for nebulization 0.5 mg INH BID Qty: 120 RF: 5 ipratropium-albuterol 0.5 mg-3 mg(2.5 mg base)/3 mL solution for nebulization 3 ml INH Q4H PRN (Reason: wheezing) Qty: 360 RF: 5 dicyclomine 10 mg Capsule 10 mg PO Q4 PRN (Reason: Abdominal Discomfort) RF: 0 cholecalciferol (vitamin D3) [Vitamin D3] 2,000 unit Capsule 2,000 unit PO QAM RF: 0 nystatin 100,000 unit/gram powder 1 applic TOPICAL TID PRN (Reason: Skin Irritation) RF: 0 atenolol 25 mg tablet 25 mg PO QAM RF: 0 potassium chloride 10 mEq tablet extended release 10 meq PO QAM RF: 0 meclizine 25 mg tablet 25 mg PO Q6 PRN (Reason: Dizziness Or Vertigo) RF: 0 omeprazole 20 mg capsule,delayed release(DR/EC) 20 mg PO BIDM RF: 0 hydrochlorothiazide 25 mg tablet 25 mg PO QAM RF: 0 ondansetron 4 mg tablet,disintegrating 4 mg PO Q6H PRN (Reason: nausea and vomiting) Qty: 14 RF: 0 clopidogrel 75 mg Tablet 75 mg PO QAM Qty: 30 RF: 1 atorvastatin [Lipitor] 40 mg tablet 40 mg PO QAM RF: 0 Anoro Ellipta 62.5-25 mcg/actuation blister with device 1 inh INHALATION QAM RF: 0 losartan 50 mg Tablet 50 mg PO DAILY RF: 0 Discontinued docusate sodium [Colace] 100 mg Capsule 100 mg PO Q OTHER DAY RF: 0 Discharge Orders: Discharge Order (Routine); Ordered 07/03/21 Ordered By: Leatha Ryan Admission Data Admit Date/Time: 06/28/21 10:50 Attending Provider: Leatha Ryan Admit Provider: Leatha Ryan Primary Care Provider: Yariel Cardoza Other Providers: Jose Tejada ; Basilio Steward ; Art Graves Other Interventions: Discharge Summary Assessment (RN) Last Done: 07/03/21 12:54
--- NOTE | 2021-07-11 16:06 | Coding Query ---
CODING QUERY To promote full compliance with coding requirements relating to patient care, provider participation is requested in all cases of wood hacker uncertainty. Please assist us with the question(s) below: Coding Question(s): The Discharge Summary documents in the Principal Diagnosis area, "Large bowel obstruction" and in the Hospital Course, under large bowel obstruction, "General surgery consulted: Likely pseudoobstruction, no surgical intervention currently until repeat colonoscopy becomes unsuccessful" and the Surgery Consultation documents, "Likely pseudo-obstruction given recent c-scope with no abnormalities. See 06/29 progress note for full details", and Surgery PN 06/29 documents, "Aptos's syndrome: Plan: 75 y/o female with colonic distention, likely pseudo-obstruction given recent colonoscopy without intra-luminal abnormality. NG tube for emesis and decompression" and the GI Progress Note on 07/01 documents, "Aptos's syndrome". Please specify below, in your clinical opinion. 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 ( ) Large Bowel Obstruction with No pseudo-obstruction/Aptos's syndrome ( ) Other: Please Specify Physician's Response(s): Thank you Leigha Brian Principal Diagnosis: "that condition established after study, to be chiefly responsible for occasioning the admission of the patient to the hospital for care." Co-Existing Principal Diagnosis: "when two or more diagnoses equally meet the criteria for principal diagnosis as determined by the circumstances of admission, diagnostic work up, and/or therapy provided, and the Alphabetic Index, Tabular List, or another coding guideline does not provide sequencing direction, any one of the diagnoses may be sequenced first." "When the physician has documented what appears to be a current diagnosis in the body of the record, but has not included the diagnosis in the final diagnostic statement, the physician should be asked whether the diagnosis should be added." (Source Coding [facility] 2 QTR90. p3-4) DIMA
== END 2021-07-03 16:53 | disposition home or self-care (01) | DRG 392 ==
LOC: ED 05:48 → EDINP 10:50 → 2W 15:00

== ENCOUNTER 2022-04-05 06:04 | Inpatient (IN) ==
[2022-04-05] MEDS ORDERED: ONDANSETRON INJ 2 MG/ML 2 ML VIAL IV STA (06:33)
[2022-04-05 06:47] LABS: Basophils # (auto) 0.02 K/uL (0-0.2); Basophils % (auto) 0.1 %; Eosinophils # (auto) 0.02 K/uL (0-0.5); Eosinophils % (auto) 0.1 %; Hematocrit (blood only) 45.8 % (37-47); Hemoglobin 14.4 g/dL (12.0-16.0); Immature Granulocytes # (auto) 0.07 K/uL (0.00-0.02); Immature Granulocytes % (auto) 0.4 %; Lymphocytes # (auto) 1.35 K/uL (1.2-3.4); Lymphocytes % (auto) 8.3 %; Mean Corpuscular Hemoglobin 30.8 pg (25-34); Mean Corpuscular Hgb Conc 31.4 g/dL (32-36); Mean Corpuscular Volume 97.9 fL (80-100); Mean Platelet Volume 9.6 fL (7.4-10.4); Monocytes # (auto) 1.51 K/uL (0.11-0.59); Monocytes % (auto) 9.2 %; Neutrophils # (auto) 13.37 K/uL (1.4-6.5); Neutrophils % (auto) 81.9 %; Platelet Count 168 K/uL (130-400); RDW Coefficient of Variation 14.4 % (11.5-14.5); RDW Standard Deviation 51.7 fL (36.4-46.3); Red Blood Count 4.68 M/uL (4.2-5.4); White Blood Count 16.34 K/uL (4.8-10.8)
--- NOTE | 2022-04-05 06:58 | XRay Report ---
XR chest 1V portable CLINICAL HISTORY: Atypical chest pain. COMPARISON STUDY: Chest radiograph June 28, 2021. FINDINGS: Lung volumes are normal. There is no pneumothorax or pleural effusion. There is mild cardio megaly. No evidence for pulmonary edema. Mild right basilar opacity is present. Possible left basilar opacity. Old right-sided rib fractures are incidentally noted. IMPRESSION: Bibasilar opacities which could reflect pneumonia or atelectasis. Radiographic follow-up to ensure resolution is recommended. ACT 112: Negative or not required by law. Electronically signed by: João Villatoro M.D. 04/05/2022 6:57 AM
--- NOTE | 2022-04-05 07:07 | Emergency Department Note ---
Impression & Plan Pneumonia, Fever, Cough productive of yellow sputum, Leukocytosis ED Provider Note INFORMANT: Patient and daughter ED PROVIDER(S): Gianni Adams MD CHIEF COMPLAINT: Productive cough PLAN: Disposition: Admitted Condition: Good Outpatient prescription management: none Referral: None MEDICAL DECISION MAKING: Patient presented to the emergency department because of productive cough. Blood work and x-ray were performed. ECG did not show any acute changes. Patient was found to have pneumonia on chest x-ray. Blood work revealed a significant leukocytosis. Chemistry and cardiac troponin were unremarkable. The patient was treated with IV cefepime and doxycycline after blood cultures. COVID testing and flu testing negative. The patient's lactate is normal. The patient's O2 saturation on 2 L is hovering from 90 to 92%. Patient was also given a DuoNeb and Solu-Medrol. Given her weakness and history further management in the hospital was deemed appropriate. Consultation was made with the [facility] service. Patient was evaluated in the ER and admitted for further management. Triage Nursing notes reviewed and agree them. Vital Signs: reviewed and remarkable for fever Differential diagnosis: Reactive airway disease, pneumonia, pneumothorax, COPD, CHF, infections, cardiac ischemia, pulmonary embolism, musculoskeletal, gastrointestinal, as well as other pathologies. Diagnostics interpreted by me: ECG: Twelve-lead ECG reveals sinus tachycardia with PACs at [address] elevation or depression. Normal axis. Normal QRS. Cardiac Monitoring: Cardiac monitoring ordered by me: The patient was placed on continuous cardiac monitoring and observed. It revealed a paced rhythm at 95 bpm. PACs. Imaging studies: Chest x-ray concerning for bibasilar pneumonia. HPI: The patient is a 76 year old female who presents to the Emergency Room with complaints of cough. This started earlier this week and is worsening. The patient also notes the following associated symptoms, weakness, fever, shortness of breath, cough producing yellow sputum, pain in the abdominal muscles with coughing. The patient has found no relieving factors. Current pain is rated as 10/10. Patient was seen 4 days ago for leg pain and work-up was negative at that time. She notes that the leg pain had resolved. Pt denies LOC, headache, diaphoresis, visual changes, neck pain, chest pain, nausea, vomiting, abdominal pain without coughing, back pain, melena, hematochezia, urinary symptoms, numbness, lymphadenopathy, rash, or other complaints. ROS: See above HPI for pertinent positives & negatives. A total of 10 systems reviewed and were otherwise negative. PAST MEDICAL HISTORY:See Below , COPD PAST SURGICAL HISTORY:See Below, FAMILY HISTORY:See Below SOCIAL HISTORY:See Below, retired HOME MEDICATIONS:See Below ALLERGIES:See Below VITALS:See Below PHYSICAL EXAMINATION: GENERAL: Awake, alert, mildly ill-appearing, in no distress HENT: Normocephalic, atraumatic. Oropharynx unremarkable. EYES: Normal conjunctiva. Sclera non-icteric. NECK: Inspection normal. Non-tender. Supple. No nuchal rigidity. FROM. No masses. RESPIRATORY: Scattered rhonchi. Few expiratory wheezes. No rales. Mildly increased respiratory effort. CARDIAC: Normal rate. Normal rhythm. No murmurs. No rubs. Extremities warm and well perfused. Pulses equal. No JVD. GI: Soft, non-distended. No tenderness to palpation. No rebound or guarding. No masses. RECTAL: Deferred. MUSCULOSKELETAL: Atraumatic. Chest examination reveals no tenderness. The back is symmetrical on inspection without obvious abnormality. There is no CVA tenderness to palpation. No joint edema. LOWER EXTREMITIES: Calves are equal size bilaterally and non-tender. No edema. No discoloration. NEURO: Normal sensorium. No sensory or motor deficits noted. SKIN: No rash or jaundice noted. Gianni Adams MD Past Med/Surg History Medical History Anxiety and depression Chronic obstructive pulmonary disease nebulizer/inhalers daily and prn///2L n/c at HS/PRN Diverticulitis of colon Dysconjugate gaze [facility], headache, fatigue--no issues now History of recent hospitalization treated at [facility] 06/2021 for a Large bowel obstruction ~10-14 days after having a colonoscopy. Hypomagnesemia Kidney stones Multiple pulmonary nodules Nausea & vomiting Obstructive sleep apnea of adult On anticoagulant therapy plavix daily On home oxygen therapy 2L N/C at hs and prn Osteoarthritis Sciatic leg pain right Transient ischemic attack (TIA) (~09/18/20) per pt had mini stroke and started on plavix daily Tubulovillous adenoma of colon Urge incontinence of urine Surgical History H/O esophagogastroduodenoscopy "repair zenkers diverticulum" History of bilateral breast reduction surgery History of bunionectomy RT History of cataract surgery RT/LEFT History of cholecystectomy Lap cholecystectomy: 06/04/16: Grade view 2, MAC#3, ETT 7.0 at [facility] History of colonoscopy History of cystoscopy (~07/24/19) History of dilatation and curettage History of removal of cyst left hand History of right breast biopsy x2--benign History of surgical removal of right nipple History of tonsillectomy and adenoidectomy History of tooth extraction all teeth History of total hysterectomy History of ureter stent Status post biopsy of thyroid gland benign Family History Brother Family history of diabetes mellitus Other No family history of adverse response to anesthesia Denies family history of Crohn's disease Colorectal cancer Ulcerative colitis Social History Smoking Status: Former smoker Tobacco Type: Cigarettes Second Hand Exposure: No; Hx Alcohol Use: No Hx Substance Use: No Preferred Language: Guamanian Communication Ability: Effective Visual Impairment: No Limitations 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 Her daughter and 2 grandsons live there current occupational status: retired Feels Safe at Home: Yes Assistive Devices: Cane, Denture - Upper, Denture - Lower, Glasses, Nebulizer and Oxygen - at Night Allergies Allergies Allergy/AdvReac Type Severity Reaction Status Date / Time adhesive Allergy Intermediate RASH Verified 12/20/21 15:53 ibuprofen Allergy Intermediate RASH Verified 12/20/21 15:53 Iodinated Contrast Media Allergy Intermediate HIVES, Verified 12/20/21 15:53 EYES SWELL SHUT latex Allergy Intermediate RASH Verified 12/20/21 15:53 naproxen Allergy Intermediate SWELLING, Verified 12/20/21 15:53 RASH, HIVES Home Meds Home Medications Medication Instructions Recorded Confirmed atenolol 25 mg tablet 25 mg PO QAM 08/17/18 12/20/21 hydrochlorothiazide 25 mg tablet 25 mg PO QAM 08/17/18 12/20/21 meclizine 25 mg tablet 25 mg PO Q6 PRN 08/17/18 12/20/21 omeprazole 20 mg capsule,delayed 20 mg PO BIDM 08/17/18 12/20/21 release potassium chloride 10 mEq 10 meq PO QAM 08/17/18 12/20/21 tablet,extended release dicyclomine 10 mg capsule 10 mg PO Q4 PRN 04/03/19 12/20/21 cholecalciferol (vitamin D3) 50 2,000 unit PO QAM 06/09/19 12/20/21 mcg (2,000 unit) capsule (Vitamin D3) losartan 50 mg tablet 50 mg PO QAM 06/28/21 12/20/21 budesonide 0.5 mg/2 mL suspension 0.5 mg INH BID 08/21/21 12/20/21 for nebulization (Pulmicort) ascorbic acid (vitamin C) 1,000 mg 1 g PO DAILY tab 12/04/21 12/20/21 tablet atorvastatin 40 mg tablet 40 mg PO .COMPLEX 12/04/21 12/20/21 zinc gluconate 50 mg tablet 50 mg PO DAILY 12/04/21 12/20/21 furosemide 40 mg tablet 40 mg PO DAILY 04/05/22 04/05/22 Previous Rx's Medication Instructions Recorded clopidogrel 75 mg tablet 75 mg PO QAM #30 tab 09/23/20 albuterol sulfate 90 mcg/actuation 2 puff INHALATION Q6H PRN #18 gm 12/13/20 aerosol inhaler polyethylene glycol 3350 17 gram 17 g PO BID #60 ea 07/03/21 oral powder packet (Miralax) ipratropium 0.5 mg-albuterol 3 mg 3 ml INH Q4H PRN #360 ml 09/08/21 (2.5 mg base)/3 mL nebulization soln umeclidinium 62.5 mcg-vilanterol 1 inh INHALATION QAM #3 inhaler 01/10/22 25 mcg/actuation powdr for inhalation (Anoro Ellipta) tramadol 50 mg tablet 50 mg PO Q6H PRN #10 tab 04/01/22 Results & Data (ED) Vital Signs Vital Signs - 24 hr 04/05/22 06:06 04/05/22 06:28 04/05/22 06:30 Temperature 37.8 C H Temperature Source Temporal Artery Scan Pulse Rate 98 H Pulse Rate [Apical] 94 H Respiratory Rate 20 18 Respiratory Effort / Characteristics Non-Labored Spontaneous Respiratory Depth Normal Blood Pressure 154/81 H Blood Pressure [Left Arm] 155/99 H Blood Pressure Mean 105 Blood Pressure Mean [Left Arm] 117 Blood Pressure Position Sitting Pulse Oximetry 93 93 Oxygen Delivery Method Nasal Cannula Nasal Cannula Oxygen Flow Rate 2 Sepsis Recent Fever Within 48 Hours No Sepsis New/Unexplained Change in Mental Status N/A Sepsis Action Taken by Nursing No Action Required 04/05/22 06:34 04/05/22 08:00 Temperature Temperature Source Pulse Rate Pulse Rate [Apical] 95 H Respiratory Rate 24 Respiratory Effort / Characteristics Respiratory Depth Blood Pressure Blood Pressure [Left Arm] 135/76 Blood Pressure Mean Blood Pressure Mean [Left Arm] 95 Blood Pressure Position Pulse Oximetry 92 Oxygen Delivery Method Nasal Cannula Nasal Cannula Oxygen Flow Rate 2 2 Sepsis Recent Fever Within 48 Hours Sepsis New/Unexplained Change in Mental Status Sepsis Action Taken by Nursing Laboratory Data Result diagrams: 04/05/22 06:28 04/05/22 08:20 Lab Results 04/05/22 04/05/22 04/05/22 Range/Units 06:20 06:28 06:28 WBC 16.34 H (4.8-10.8) K/uL RBC 4.68 (4.2-5.4) M/uL Hgb 14.4 (12.0-16.0) g/dL Hct 45.8 (37-47) % MCV 97.9 (80-100) fL MCH 30.8 (25-34) pg MCHC 31.4 L (32-36) g/dL RDW Std Deviation 51.7 H (36.4-46.3) fL RDW Coeff of Enoc 14.4 (11.5-14.5) % Plt Count 168 (130-400) K/uL MPV 9.6 (7.4-10.4) fL Immature Gran % (Auto) 0.4 % Neut % (Auto) 81.9 % Lymph % (Auto) 8.3 % Ferry % (Auto) 9.2 % Eos % (Auto) 0.1 % Baso % (Auto) 0.1 % Neut # (Auto) 13.37 H (1.4-6.5) K/uL Lymph # (Auto) 1.35 (1.2-3.4) K/uL Ferry # (Auto) 1.51 H (0.11-0.59) K/uL Eos # (Auto) 0.02 (0-0.5) K/uL Baso # (Auto) 0.02 (0-0.2) K/uL Immature Gran # (Auto) 0.07 H (0.00-0.02) K/uL PT 11.4 (9.0-12.0) Seconds INR 1.1 (0.9-1.1) APTT 26.6 (21.0-31.0) Seconds PTT Ratio 1.0 Sodium (136-145) mmol/L Potassium Chloride (98-107) mmol/L Carbon Dioxide (21-32) mmol/L Anion Gap (3-11) BUN (6-23) mg/dl Creatinine (0.6-1.2) mg/dl Est Cr Clr Drug Dosing ml/min Est GFR ( Amer) ml/min Est GFR (Non-Af Amer) ml/min BUN/Creatinine Ratio (10-20) Glucose (70-99(Fasting)) mg/dl Lactate (0.4-2.0) mmol/L Calcium (8.5-10.1) mg/dl Total Bilirubin (0.2-1.0) mg/dl AST ALT (7-52) U/L Alkaline Phosphatase (34-104) U/L Troponin I High Sens (0-14) pg/ml Total Protein (6.0-8.3) gm/dl Albumin (3.4-5.0) gm/dl Globulin (2.5-4.0) gm/dl Albumin/Globulin Ratio (0.9-2) Lipase (11-82) U/L SARS-CoV-2 (PCR) NEGATIVE (Negative) Influenza Type A (PCR) Negative (Neg) Influenza Type B (PCR) Negative (Neg) RSV (RT-PCR) Negative (Neg) 04/05/22 04/05/22 04/05/22 Range/Units 06:28 07:19 07:19 WBC (4.8-10.8) K/uL RBC (4.2-5.4) M/uL Hgb (12.0-16.0) g/dL Hct (37-47) % MCV (80-100) fL MCH (25-34) pg MCHC (32-36) g/dL RDW Std Deviation (36.4-46.3) fL RDW Coeff of Enoc (11.5-14.5) % Plt Count (130-400) K/uL MPV (7.4-10.4) fL Immature Gran % (Auto) % Neut % (Auto) % Lymph % (Auto) % Ferry % (Auto) % Eos % (Auto) % Baso % (Auto) % Neut # (Auto) (1.4-6.5) K/uL Lymph # (Auto) (1.2-3.4) K/uL Ferry # (Auto) (0.11-0.59) K/uL Eos # (Auto) (0-0.5) K/uL Baso # (Auto) (0-0.2) K/uL Immature Gran # (Auto) (0.00-0.02) K/uL PT (9.0-12.0) Seconds INR (0.9-1.1) APTT (21.0-31.0) Seconds PTT Ratio Sodium 141 (136-145) mmol/L Potassium TNP Cancelled Chloride 99 (98-107) mmol/L Carbon Dioxide 34 H (21-32) mmol/L Anion Gap 8 (3-11) BUN 17 (6-23) mg/dl Creatinine 0.77 (0.6-1.2) mg/dl Est Cr Clr Drug Dosing 63.4 ml/min Est GFR ( Amer) 85.7 ml/min Est GFR (Non-Af Amer) 74.0 ml/min BUN/Creatinine Ratio 22.1 H (10-20) Glucose 134 H (70-99(Fasting)) mg/dl Lactate 1.5 (0.4-2.0) mmol/L Calcium 9.2 (8.5-10.1) mg/dl Total Bilirubin 1.0 (0.2-1.0) mg/dl AST TNP Cancelled ALT 18 (7-52) U/L Alkaline Phosphatase 86 (34-104) U/L Troponin I High Sens 11.6 (0-14) pg/ml Total Protein 7.1 (6.0-8.3) gm/dl Albumin 4.0 (3.4-5.0) gm/dl Globulin 3.1 (2.5-4.0) gm/dl Albumin/Globulin Ratio 1.3 (0.9-2) Lipase 9 L (11-82) U/L SARS-CoV-2 (PCR) (Negative) Influenza Type A (PCR) (Neg) Influenza Type B (PCR) (Neg) RSV (RT-PCR) (Neg) 04/05/22 Range/Units 08:20 WBC (4.8-10.8) K/uL RBC (4.2-5.4) M/uL Hgb (12.0-16.0) g/dL Hct (37-47) % MCV (80-100) fL MCH (25-34) pg MCHC (32-36) g/dL RDW Std Deviation (36.4-46.3) fL RDW Coeff of Enoc (11.5-14.5) % Plt Count (130-400) K/uL MPV (7.4-10.4) fL Immature Gran % (Auto) % Neut % (Auto) % Lymph % (Auto) % Ferry % (Auto) % Eos % (Auto) % Baso % (Auto) % Neut # (Auto) (1.4-6.5) K/uL Lymph # (Auto) (1.2-3.4) K/uL Ferry # (Auto) (0.11-0.59) K/uL Eos # (Auto) (0-0.5) K/uL Baso # (Auto) (0-0.2) K/uL Immature Gran # (Auto) (0.00-0.02) K/uL PT (9.0-12.0) Seconds INR (0.9-1.1) APTT (21.0-31.0) Seconds PTT Ratio Sodium (136-145) mmol/L Potassium 3.5 Chloride (98-107) mmol/L Carbon Dioxide (21-32) mmol/L Anion Gap (3-11) BUN (6-23) mg/dl Creatinine (0.6-1.2) mg/dl Est Cr Clr Drug Dosing ml/min Est GFR ( Amer) ml/min Est GFR (Non-Af Amer) ml/min BUN/Creatinine Ratio (10-20) Glucose (70-99(Fasting)) mg/dl Lactate (0.4-2.0) mmol/L Calcium (8.5-10.1) mg/dl Total Bilirubin (0.2-1.0) mg/dl AST 13 ALT (7-52) U/L Alkaline Phosphatase (34-104) U/L Troponin I High Sens (0-14) pg/ml Total Protein (6.0-8.3) gm/dl Albumin (3.4-5.0) gm/dl Globulin (2.5-4.0) gm/dl Albumin/Globulin Ratio (0.9-2) Lipase (11-82) U/L SARS-CoV-2 (PCR) (Negative) Influenza Type A (PCR) (Neg) Influenza Type B (PCR) (Neg) RSV (RT-PCR) (Neg) Administered Medications Discontinued Medications Acetaminophen (Acetaminophen 500 Mg Tab) 1,000 mg PO NOW STA Stop: 04/05/22 07:10 Last Admin: 04/05/22 07:25 Dose: 1,000 mg Documented by: [id number] Albuterol (Albut/Ipratrop 3mg/0.5mg Neb 3 Ml Vial) 3 ml NEB NOW STA; Protocol Stop: 04/05/22 07:56 Last Admin: 04/05/22 08:28 Dose: 3 ml Documented by: [id number] Cefepime HCl (Maxipime) 2,000 mg in 20 mls @ 5 mls/min IV NOW STA; Protocol Stop: 04/05/22 07:11 Last Admin: 04/05/22 07:26 Dose: 5 mls/min Documented by: [id number] Methylprednisolone (Methylprednisolone 125 Mg/2 Ml Vial) 60 mg IV NOW STA Stop: 04/05/22 07:56 Last Admin: 04/05/22 08:29 Dose: 60 mg Documented by: [id number] Ondansetron HCl (Ondansetron Inj 2 Mg/Ml 2 Ml Vial) 4 mg IV NOW STA Stop: 04/05/22 06:34 Last Admin: 04/05/22 06:36 Dose: 4 mg Documented by: [id number] Imaging Data Radiologist's Impression: Chest X-Ray 04/05/22 06:12 XR chest 1V portable CLINICAL HISTORY: Atypical chest pain. COMPARISON STUDY: Chest radiograph June 28, 2021. FINDINGS: Lung volumes are normal. There is no pneumothorax or pleural effusion. There is mild cardiomegaly. No evidence for pulmonary edema. Mild right basilar opacity is present. Possible left basilar opacity. Old right-sided rib fractures are incidentally noted. IMPRESSION: Bibasilar opacities which could reflect pneumonia or atelectasis. Radiographic follow-up to ensure resolution is recommended. ACT 112: Negative or not required by law. Electronically signed by: João Villatoro M.D. 04/05/2022 6:57 AM Discharge Plan Visit Data Chief Complaint: Cough Stated Complaint: COUGH/SOB ED Provider: Gianni Adams Discharge Problem: Pneumonia, Fever, Cough productive of yellow sputum, Leukocytosis Forms Stand Alone Forms: [facility] XYDO Prescriptions Prescriptions: No Action ipratropium-albuterol 0.5 mg-3 mg(2.5 mg base)/3 mL solution for nebulization 3 ml INH Q4H PRN (Reason: wheezing) Qty: 360 RF: 5 Anoro Ellipta 62.5-25 mcg/actuation blister with device 1 inh INHALATION QAM Qty: 3 RF: 1 atorvastatin 40 mg tablet 40 mg PO .COMPLEX RF: 0 zinc gluconate 50 mg tablet 50 mg PO DAILY RF: 0 ascorbic acid (vitamin C) 1,000 mg tablet 1 g PO DAILY RF: 0 albuterol sulfate 90 mcg/actuation HFA aerosol inhaler 2 puff INHALATION Q6H PRN (Reason: Wheezing or shortness of breath) Qty: 18 RF: 3 dicyclomine 10 mg Capsule 10 mg PO Q4 PRN (Reason: Abdominal Discomfort) RF: 0 cholecalciferol (vitamin D3) [Vitamin D3] 2,000 unit Capsule 2,000 unit PO QAM RF: 0 atenolol 25 mg tablet 25 mg PO QAM RF: 0 potassium chloride 10 mEq tablet extended release 10 meq PO QAM RF: 0 meclizine 25 mg tablet 25 mg PO Q6 PRN (Reason: Dizziness Or Vertigo) RF: 0 omeprazole 20 mg capsule,delayed release(DR/EC) 20 mg PO BIDM RF: 0 hydrochlorothiazide 25 mg tablet 25 mg PO QAM RF: 0 clopidogrel 75 mg Tablet 75 mg PO QAM Qty: 30 RF: 1 tramadol 50 mg tablet 50 mg PO Q6H PRN (Reason: pain) Qty: 10 RF: 0 furosemide 40 mg tablet 40 mg PO DAILY RF: 0 losartan 50 mg Tablet 50 mg PO QAM RF: 0 polyethylene glycol 3350 [Miralax] 17 gram Powder In Packet 17 g PO BID Qty: 60 RF: 0 budesonide [Pulmicort] 0.5 mg/2 mL suspension for nebulization 0.5 mg INH BID RF: 0 Referrals Referrals: Yariel Cardoza MD [Primary Care Provider] -
[2022-04-05] MEDS ORDERED: CEFEPIME 2,000 MG/20 ML VIAL IV STA (07:08)
[2022-04-05] MEDS ORDERED: ACETAMINOPHEN 500 MG TAB PO STA (07:09)
[2022-04-05 07:11] LABS: Alanine Aminotransferase 18 U/L (7-52); Albumin Globulin Ratio 1.3 (0.9-2); Alkaline Phosphatase 86 U/L (34-104); Anion Gap 8 (3-11); BUN Creatinine Ratio 22.1 (10-20); Blood Urea Nitrogen 17 mg/dl (6-23); Calcium 9.2 mg/dl (8.5-10.1); Carbon Dioxide 34 mmol/L (21-32); Chloride 99 mmol/L (98-107); Creatinine Clr Calc Pharmacy 63.4 ml/min; Est GFR (African American) 85.7 ml/min; Globulin 3.1 gm/dl (2.5-4.0); Glucose 134 mg/dl (70-99(Fasting)); Lipase 9 U/L (11-82); Sodium 141 mmol/L (136-145); Total Protein 7.1 gm/dl (6.0-8.3); Troponin I High Sensitivity 11.6 pg/ml (0-14)
[2022-04-05 07:22] LABS: Influenza A virus by PCR Negative (Neg); Influenza B virus by PCR Negative (Neg); RSV by PCR Negative (Neg); SARS CoV2 RNA(COVID-19) InHosp NEGATIVE (Negative)
[2022-04-05 07:38] LABS: INR 1.1 (0.9-1.1); Partial Thromboplastin Time 26.6 Seconds (21.0-31.0); Prothrombin Time 11.4 Seconds (9.0-12.0)
[2022-04-05] MEDS ORDERED: methylPREDNISolone 125 MG/2 ML VIAL IV STA (07:55)
[2022-04-05] MEDS ORDERED: DOXYCYCLINE HYCLATE 100 MG in DEXTROSE 5% 100 ML IV STA (07:55)
[2022-04-05] MEDS ORDERED: ALBUT/IPRATROP 3MG/0.5MG NEB 3 ML VIAL NEB STA (07:55)
[2022-04-05 08:47] LABS: Potassium 3.5 mmol/L (3.5-5.1)
--- NOTE | 2022-04-05 08:51 | History & Physical Report ---
Date of Service April 05, 2022 Assessment & Plan (1) Acute and chronic respiratory failure with hypoxia: (2) Sepsis: (3) Community acquired pneumonia: Plan: This is a 76yo F with a PMH of COPD and VIRA requiring 2L NC O2 HS, HTN, history of TIA and other medical problems listed below who presents with persistent cough and SOB x 3 days found to have community-acquired pneumonia with acute on chronic respiratory failure with hypoxia. Productive cough and increased shortness of breath x3 days T 37.8 C, HR 98, WBC 16K, Lactate WNL, covid, RSV and flu PCR negative Meet sepsis criteria but nontoxic in appearance, initial lactate within normal limits CXR with bilateral opacities which could reflect pneumonia Antibiotic therapy with Rocephin and azithromycin -blood cultures pending Scheduled duonebs for 24H, then transition to PRN Guaifenesin twice daily, Tessalon Perles as needed Initially hypoxic at 87-89%, continue supplemental oxygen 2 L nasal cannula for now, wean as tolerated (4) COPD exacerbation: Plan: Given 60 mg IV Solu-Medrol in the ED. Continue steroid therapy with prednisone 40 mg daily x4 days Scheduled duonebs QIDR today, then transition to PRN and resume Incruse Ellipta Continue other home inhalers, supplemental oxygen (5) Hypertension: Plan: Given missed a.m. dose of atenolol, losartan. Resume hydrochlorothiazide tomorrow. Holding lasix for now (started on month trial of lasix yesterday by PCP for fluid retention) (6) History of TIA (transient ischemic attack): Plan: Continue Plavix DVT Ppx: SQ Lovenox Code status: FULL PCP: [facility] Dispo: Admitted to med/surg Patient seen in collaboration with Dr. Shipley. Please see addendum. History of Present Illness Chief Complaint: cough, SOB Primary Care Provider: Yariel Cardoza MD This is a 76yo F with a PMH of COPD and VIRA requiring 2L NC O2 HS, HTN, history of TIA and other medical problems listed below who presents with persistent cough and SOB x 3 days. Patient with some SOB at baseline with COPD but has progressed since developing cold like symptoms 3 days prior, including rhinorrhea, headache and sore throat. Cough is productive with greenish sputum and associated shortness of breath with rest and activity. Endorses some abdominal soreness from repeated coughing as well as some generalized weakness, nausea and chills. Denies any fever, chest pain, vomiting, dysuria, diarrhea or constipation. Normally only requires oxygen at night but has been using during the day due to increased shortness of breath. Has been using nebulizer at home. Former smoker but quit 27 years ago. Did not take any morning medications today. Allergies Allergy/AdvReac Type Severity Reaction Status Date / Time adhesive Allergy Intermediate RASH Verified 04/05/22 11:13 ibuprofen Allergy Intermediate RASH Verified 04/05/22 11:13 Iodinated Contrast Media Allergy Intermediate HIVES, Verified 04/05/22 11:13 EYES SWELL SHUT latex Allergy Intermediate RASH Verified 04/05/22 11:13 naproxen Allergy Intermediate SWELLING, Verified 04/05/22 11:13 RASH, HIVES Home Medications Medication Instructions Recorded Confirmed Type atenolol 25 mg tablet 25 mg PO QAM 08/17/18 04/05/22 History hydrochlorothiazide 25 mg tablet 25 mg PO QAM 08/17/18 04/05/22 History meclizine 25 mg tablet 25 mg PO Q6 PRN 08/17/18 04/05/22 History omeprazole 20 mg capsule,delayed 20 mg PO BIDM 08/17/18 04/05/22 History release potassium chloride 10 mEq 10 meq PO QAM 08/17/18 04/05/22 History tablet,extended release dicyclomine 10 mg capsule 10 mg PO Q4 PRN 04/03/19 04/05/22 History cholecalciferol (vitamin D3) 50 2,000 unit PO QAM 06/09/19 04/05/22 History mcg (2,000 unit) capsule (Vitamin D3) clopidogrel 75 mg tablet 75 mg PO QAM #30 tab 09/23/20 04/05/22 Rx albuterol sulfate 90 mcg/actuation 2 puff INHALATION Q6H PRN #18 gm 12/13/20 04/05/22 Rx aerosol inhaler losartan 50 mg tablet 50 mg PO QAM 06/28/21 04/05/22 History polyethylene glycol 3350 17 gram 17 g PO BID #60 ea 07/03/21 04/05/22 Rx oral powder packet (Miralax) budesonide 0.5 mg/2 mL suspension 0.5 mg INH BID 08/21/21 04/05/22 History for nebulization (Pulmicort) ipratropium 0.5 mg-albuterol 3 mg 3 ml INH Q4H PRN #360 ml 09/08/21 04/05/22 Rx (2.5 mg base)/3 mL nebulization soln ascorbic acid (vitamin C) 1,000 mg 1 g PO DAILY tab 12/04/21 04/05/22 History tablet atorvastatin 40 mg tablet 40 mg PO DAILY 12/04/21 04/05/22 History zinc gluconate 50 mg tablet 50 mg PO DAILY 12/04/21 04/05/22 History umeclidinium 62.5 mcg-vilanterol 1 inh INHALATION QAM #3 inhaler 01/10/22 04/05/22 Rx 25 mcg/actuation powdr for inhalation (Anoro Ellipta) tramadol 50 mg tablet 50 mg PO Q6H PRN #10 tab 04/01/22 04/05/22 Rx furosemide 40 mg tablet 40 mg PO DAILY 04/05/22 04/05/22 History Past Med/Surg History Medical History Anxiety and depression Chronic obstructive pulmonary disease nebulizer/inhalers daily and prn///2L n/c at HS/PRN Diverticulitis of colon Dysconjugate gaze History of COVID-19 diagnosed 08/2020 @ [facility]--cough, headache, fatigue--no issues now History of recent hospitalization treated at [facility] 06/2021 for a Large bowel obstruction ~10-14 days after having a colonoscopy. Hypomagnesemia Kidney stones Multiple pulmonary nodules Nausea & vomiting Obstructive sleep apnea of adult On anticoagulant therapy plavix daily On home oxygen therapy 2L N/C at hs and prn Osteoarthritis Sciatic leg pain right Transient ischemic attack (TIA) (~09/18/20) per pt had mini stroke and started on plavix daily Tubulovillous adenoma of colon Urge incontinence of urine Surgical History H/O esophagogastroduodenoscopy "repair zenkers diverticulum" History of bilateral breast reduction surgery History of bunionectomy RT History of cataract surgery RT/LEFT History of cholecystectomy Lap cholecystectomy: 06/04/16: Grade view 2, MAC#3, ETT 7.0 at [facility] History of colonoscopy History of cystoscopy (~07/24/19) History of dilatation and curettage History of removal of cyst left hand History of right breast biopsy x2--benign History of surgical removal of right nipple History of tonsillectomy and adenoidectomy History of tooth extraction all teeth History of total hysterectomy History of ureter stent Status post biopsy of thyroid gland benign Family History Brother Family history of diabetes mellitus Other No family history of adverse response to anesthesia Denies family history of Diabetes Crohn's disease Colorectal cancer Ulcerative colitis Stroke Social History (Updated 04/05/22 @ 09:58 by Leilani Alegria PA-C) Smoking Status: Former smoker Tobacco Type: Cigarettes Smoking End Date: 1996; Second Hand Exposure: No; Hx Alcohol Use: No Hx Substance Use: No Preferred Language: [place] Communication Ability: Effective Visual Impairment: No Limitations Barrel Builder Required: No Beliefs That Will Affect Care: None marital status: Current Living Situation: Spouse and Other Current Living Situation Comment: Patient lives with her . Her daughter and 2 grandsons live there current occupational status: retired Feels Safe at Home: Yes Assistive Devices: Cane, Denture - Upper, Denture - Lower, Glasses, Nebulizer and Oxygen - at Night Review of Systems Review of Systems: At least ten systems reviewed and negative except as noted in the HPI. Physical Exam Physical Exam: Please see Dr. Shipley's addendum for physical exam details. Results & Data Results & Data ([facility]) Vital Signs (Past 12 Hours) Vital Signs Temp Pulse Pulse Resp BP BP Pulse Ox 04/05/22 08:00 95 H 24 135/76 92 04/05/22 06:30 94 H 18 155/99 H 93 04/05/22 06:06 37.8 C H 98 H 20 154/81 H 93 Laboratory Results Short CBC 04/05/22 Range/Units 06:28 WBC 16.34 H (4.8-10.8) K/uL Hgb 14.4 (12.0-16.0) g/dL Hct 45.8 (37-47) % Plt Count 168 (130-400) K/uL BMP 04/05/22 04/05/22 04/05/22 06:28 07:19 08:20 Sodium 141 Potassium TNP Cancelled 3.5 Chloride 99 Carbon Dioxide 34 H BUN 17 Creatinine 0.77 Glucose 134 H Calcium 9.2 Liver Function 04/05/22 04/05/22 04/05/22 Range/Units 06:28 07:19 08:20 Total Bilirubin 1.0 (0.2-1.0) mg/dl AST TNP Cancelled 13 ALT 18 (7-52) U/L Alkaline Phosphatase 86 (34-104) U/L Albumin 4.0 (3.4-5.0) gm/dl Diagnostic Findings Chest X-Ray 04/05/22 06:12 XR chest 1V portable CLINICAL HISTORY: Atypical chest pain. COMPARISON STUDY: Chest radiograph June 28, 2021. FINDINGS: Lung volumes are normal. There is no pneumothorax or pleural effusion. There is mild cardiomegaly. No evidence for pulmonary edema. Mild right basilar opacity is present. Possible left basilar opacity. Old right-sided rib fractures are incidentally noted. IMPRESSION: Bibasilar opacities which could reflect pneumonia or atelectasis. Radiographic follow-up to ensure resolution is recommended. ACT 112: Negative or not required by law. Electronically signed by: João Villatoor M.D. 04/05/2022 6:57 AM Supervising Physician Co-Signing Physician Notes Date of Service: April 05, 2022 76-year-old woman who presents with cough productive of greenish sputum for the past 4 days, associated with shortness of breath at rest and with activity, abdominal pain associated with coughing, weakness, nausea and chills. Had started with rhinorrhea Uses oxygen at bedtime only but has been using it due to respiratory symptoms Physical exam General: Obese woman, no acute distress Eyes: PERRL, conjunctivae normal, not pale, anicteric sclerae, EOM intact bilaterally ENMT: External ear and nose normal, oropharynx normal Respiratory: Normal respiratory effort, no respiratory distress, +cough, globally diminished breath sounds, on nasal cannula at 2l/min with ox sat 92% Cardiovascular: Regular rhythm, HR 105, S1 S2 Gastrointestinal (Abdomen): Abdomen is not distended, soft, non-tender to pa lpation, no guarding, no palpable hepatosplenomegaly, normal bowel sounds Musculoskeletal: No cyanosis or clubbing, No pedal edema Neurologic: Alert and oriented x 3, No focal weakness, sensation grossly intact Psychiatric: Alert and oriented x 3, euthymic affect, no depressed affect Labs notable for WBC of 16,000, bicarb of 34 Chest x-ray noted bibasilar opacities Sepsis Community acquired pneumonia COPD exacerbation Acute respiratory failure with hypoxia Patient does meet SIRS criteria with leukocytosis and tachycardia Lactate is normal Ceftriaxone + Azithro Got solumedrol in ER. Prednisone 40mg for 4 more days Continue duoneb qid for 24h then resume incruse ellipta tomorrow Guaifenesin kartik. Bebo hawkins prn Wean oxygen as tolerated. Was only on oxygen at bedtime Hold lasix recently started by PCP Agree with other plans as detailed by Leilani Alegria PA-C
[2022-04-05] MEDS ORDERED: BENZONATATE 100 MG CAPSULE PO PRN (08:55)
[2022-04-05] MEDS ORDERED: BENZONATATE 100 MG CAPSULE PO ONE (08:55)
[2022-04-05] MEDS ORDERED: guaiFENesin 600 MG TABCR PO ONE (09:25)
--- NOTE | 2022-04-05 09:28 | Electrocardiogram Report ---
Test Reason : Blood Pressure : / mmHG Vent. Rate : 101 BPM Atrial Rate : 101 BPM P-R Int : 208 ms QRS Dur : 086 ms QT Int : 332 ms P-R-T Axes : 059 -01 065 degrees QTc Int : 430 ms Sinus tachycardia with Premature atrial complexes Otherwise normal ECG When compared with ECG of 28-JUN-2021 05:59, Premature atrial complexes are now Present Confirmed by Landon Martines ([id number]) on 04/05/2022 9:27:51 AM Referred By: REFERRED SELF Confirmed By:Landon Martines
[2022-04-05] MEDS ORDERED: CLOPIDOGREL BISULFATE 75 MG TAB PO STA (09:32)
--- NOTE | 2022-04-05 09:37 | Communication Note ---
Date of Service: April 05, 2022 76-year-old woman who presents with cough productive of greenish sputum for the past 4 days, associated with shortness of breath at rest and with activity, abdominal pain associated with coughing, weakness, nausea and chills. Had started with rhinorrhea Uses oxygen at bedtime only but has been using it due to respiratory symptoms Physical exam General: Obese woman, no acute distress Eyes: PERRL, conjunctivae normal, not pale, anicteric sclerae, EOM intact bilaterally ENMT: External ear and nose normal, oropharynx normal Respiratory: Normal respiratory effort, no respiratory distress, +cough, globally diminished breath sounds, on nasal cannula at 2l/min with ox sat 92% Cardiovascular: Regular rhythm, HR 105, S1 S2 Gastrointestinal (Abdomen): Abdomen is not distended, soft, non-tender to palpation, no guarding, no palpable hepatosplenomegaly, normal bowel sounds Musculoskeletal: No cyanosis or clubbing, No pedal edema Neurologic: Alert and oriented x 3, No focal weakness, sensation grossly intact Psychiatric: Alert and oriented x 3, euthymic affect, no depressed affect Labs notable for WBC of 16,000, bicarb of 34 Chest x-ray noted bibasilar opacities Sepsis Community acquired pneumonia COPD exacerbation Acute respiratory failure with hypoxia Patient does meet SIRS criteria with leukocytosis and tachycardia Lactate is normal Ceftriaxone + Azithro Got solumedrol in ER. Prednisone 40mg for 4 more days Continue duoneb qid for 24h then resume incruse ellipta tomorrow Guaifenesin kartik. Bebo hawkins prn Wean oxygen as tolerated. Was only on oxygen at bedtime Hold lasix recently started by PCP Agree with other plans as detailed by Leilani Alegria PA-C
[2022-04-05] MEDS ORDERED: ATENOLOL 25 MG TABLET PO SCH (09:45)
[2022-04-05] MEDS: LOSARTAN POTASSIUM 50 MG TAB PO SCH (10:48)
[2022-04-05] MEDS ORDERED: DICYCLOMINE HCL 10 MG CAP PO PRN (11:24)
[2022-04-05] MEDS ORDERED: MECLIZINE HCL 25 MG TAB PO PRN (11:24)
[2022-04-05] MEDS ORDERED: ALBUTEROL HFA 8 GM INHALER INH PRN (11:24)
[2022-04-05] MEDS: ALBUT/IPRATROP 3MG/0.5MG NEB 3 ML VIAL NEB SCH ×3 (13:17→19:11)
[2022-04-05] MEDS: cefTRIAXone SODIUM 2,000 MG in DEXTROSE 5% 50 ML IV SCH (13:18)
[2022-04-05] MEDS: ENOXAPARIN INJ 40 MG/0.4 ML SYR SQ SCH (13:29)
[2022-04-05] MEDS: AZITHROMYCIN 500 MG in DEXTROSE 5% 250 ML IV SCH (15:03)
[2022-04-05] MEDS: ACETAMINOPHEN 325 MG TAB PO PRN (15:11)
[2022-04-05] MEDS: PANTOprazole 40 MG TAB PO SCH (15:58)
[2022-04-05] MEDS: traMADol HCL 50 MG TABLET PO PRN (15:58)
[2022-04-05] MEDS: BUDESONIDE 0.5 MG/2 ML VIAL (PULMICORT) INH SCH (19:11)
[2022-04-05] MEDS: POLYETHYLENE (MIRALAX) 17 GM PACK PO SCH (20:12)
[2022-04-05] MEDS: guaiFENesin 600 MG TABCR PO SCH (20:13)
[2022-04-06] MEDS: ALBUT/IPRATROP 3MG/0.5MG NEB 3 ML VIAL NEB SCH (07:04)
[2022-04-06] MEDS: BUDESONIDE 0.5 MG/2 ML VIAL (PULMICORT) INH SCH ×2 (07:04→19:38)
[2022-04-06] MEDS: traMADol HCL 50 MG TABLET PO PRN (07:12)
[2022-04-06 07:24] LABS: Hemoglobin 12.3 g/dL (12.0-16.0); Mean Corpuscular Hemoglobin 30.4 pg (25-34); Mean Corpuscular Hgb Conc 30.8 g/dL (32-36); Mean Corpuscular Volume 98.8 fL (80-100); Mean Platelet Volume 9.5 fL (7.4-10.4); Platelet Count 174 K/uL (130-400); RDW Coefficient of Variation 14.4 % (11.5-14.5); Red Blood Count 4.05 M/uL (4.2-5.4)
[2022-04-06 07:37] LABS: BUN Creatinine Ratio 37.7 (10-20); Calcium 8.6 mg/dl (8.5-10.1); Creatinine Clr Calc Pharmacy 70.8 ml/min; Est GFR (African American) 96.6 ml/min; Est GFR (Non-African American) 83.4 ml/min; Potassium 3.9 mmol/L (3.5-5.1)
[2022-04-06] MEDS: UMECLIDINIUM/VILANTEROL 62.5/25MCG 7 PUFFS/INHALER INH SCH (08:55)
[2022-04-06] MEDS: PANTOprazole 40 MG TAB PO SCH ×2 (08:55→16:20)
[2022-04-06] MEDS: POLYETHYLENE (MIRALAX) 17 GM PACK PO SCH ×2 (08:56→20:22)
[2022-04-06] MEDS: ATENOLOL 25 MG TABLET PO SCH (08:56)
[2022-04-06] MEDS: CHOLECALCIFEROL 1,000 UNITS 25 MCG TAB PO SCH (08:56)
[2022-04-06] MEDS: guaiFENesin 600 MG TABCR PO SCH ×2 (08:56→20:22)
[2022-04-06] MEDS: ATORVASTATIN 40 MG TAB PO SCH (08:56)
[2022-04-06] MEDS: ZINC SULFATE 220 MG CAPSULE PO SCH (08:57)
[2022-04-06] MEDS: ASCORBIC ACID 500 MG TAB PO SCH (08:57)
[2022-04-06] MEDS: POTASSIUM CHLORIDE 10 MEQ TABCR PO SCH (08:57)
[2022-04-06] MEDS: predniSONE 20 MG TAB PO SCH (08:57)
[2022-04-06] MEDS: hydroCHLOROthiazide 25 MG TAB PO SCH (08:57)
[2022-04-06] MEDS: CLOPIDOGREL BISULFATE 75 MG TAB PO SCH (08:57)
[2022-04-06] MEDS: LOSARTAN POTASSIUM 50 MG TAB PO SCH (08:57)
[2022-04-06] MEDS ORDERED: LOSARTAN POTASSIUM 50 MG TAB PO SCH (09:00)
[2022-04-06] MEDS: cefTRIAXone SODIUM 2,000 MG in DEXTROSE 5% 50 ML IV SCH (12:50)
[2022-04-06] MEDS: ENOXAPARIN INJ 40 MG/0.4 ML SYR SQ SCH (12:51)
[2022-04-06] MEDS: AZITHROMYCIN 500 MG in DEXTROSE 5% 250 ML IV SCH (13:33)
[2022-04-06] MEDS ORDERED: ALBUT/IPRATROP 3MG/0.5MG NEB 3 ML VIAL NEB STA (15:52)
--- NOTE | 2022-04-06 20:45 | Hospitalist Progress Note ---
Date of Service April 06, 2022 Assessment & Plan (1) Acute and chronic respiratory failure with hypoxia: (2) Sepsis: (3) Community acquired pneumonia: Plan: This is a 76yo F with a PMH of COPD and VIRA requiring 2L NC O2 HS, HTN, history of TIA and other medical problems listed below who presents with persistent cough and SOB x 3 days found to have community-acquired pneumonia with acute on chronic respiratory failure with hypoxia. Productive cough and increased shortness of breath x3 days T 37.8 C, HR 98, WBC 16K, Lactate WNL, covid, RSV and flu PCR negative Meet sepsis criteria but nontoxic in appearance, initial lactate within normal limits CXR with bilateral opacities which could reflect pneumonia Antibiotic therapy with Rocephin and azithromycin -blood cultures pending Scheduled duonebs for 24H, then transition to PRN Guaifenesin twice daily, Tessalon Perles as needed Initially hypoxic at 87-89%, continue supplemental oxygen 2 L nasal cannula for now, wean as tolerated (4) COPD exacerbation: Plan: Given 60 mg IV Solu-Medrol in the ED. Continue steroid therapy with prednisone 40 mg daily x4 days Scheduled duonebs QIDR today, then transition to PRN and resume Incruse Ellipta Continue other home inhalers, supplemental oxygen (5) Hypertension: Plan: Given missed a.m. dose of atenolol, losartan. Resume hydrochlorothiazide tomorrow. Holding lasix for now (started on month trial of lasix yesterday by PCP for fluid retention) (6) History of TIA (transient ischemic attack): Plan: cont Plavix for secondary prophylaxis per home regimen. DVT Ppx: SQ Lovenox Code status: FULL PCP: [facility] Dispo: Admitted to med/surg DO Alexander [facility]ward Hospitalist Admission and Anticipated Discharge Date Admission Date: April 05, 2022 Subjective 76 yo F admitted with respiratory symptoms and pneumoina feels better on the currnet therapy belle chest pain, cough improved Review of Systems Review of Systems: all ssystems were revired and negative except as indicated above. Physical Exam Physical Exam: CONSTITUTIONAL: obese, vitals as above, generally well- appearing, NAD EYES: normal conjunctivae, no scleral icterus ENT: external ear and nose normal, MMM NECK: trachea midline, RESPIRATORY: clear to auscultation bilaterally, no crackles, rales or wheezes, normal respiratory effort CARDIOVASCULAR: regular rate and rhythm, S1 and 2 heard without murmurs, gallops or rubs, no JVD, no peripheral edema CHEST: inspection of chest was normal GASTROINTESTINAL: normal bowel sounds, soft, nontender, no hepatomegaly, no guarding MUSCULOSKELETAL: strength 5/5 throughout, head is normocephalic and atraumatic, neck supple, normal palpation of chest wall without tenderness SKIN: warm and dry, no rashes NEUROLOGIC: patellar DTRs 2+ bilat. PERRL, EOMI, no facial palsy, no dysarthria. Touch, pain and proprioception normal. CN 2-12 grossly intact, no sensory deficit, normal cognition, normal speech, no tremor PSYCHIATRIC: alert cooperative and oriented to person, place and time. Euthymic mood, makes good eye contact, language grossly intact, recent and remote memory grossly intact. LYMPHATIC: no LAD Results & Data Results & Data ([facility]) Vital Signs (Past 12 Hours) Vital Signs Temp Pulse Resp BP Pulse Ox 04/06/22 19:37 72 18 91 04/06/22 19:07 36.7 C 84 18 125/77 92 04/06/22 16:56 75 20 94 04/06/22 15:06 36.8 C 70 20 128/68 94 04/06/22 11:19 36.8 C 62 20 123/69 94 Laboratory Results Short CBC 04/06/22 Range/Units 06:48 WBC 12.10 H (4.8-10.8) K/uL Hgb 12.3 (12.0-16.0) g/dL Hct 40.0 (37-47) % Plt Count 174 (130-400) K/uL BMP 04/06/22 06:48 Sodium 140 Potassium 3.9 Chloride 100 Carbon Dioxide 34 H BUN 26 H Creatinine 0.69 Glucose 105 H Calcium 8.6 Medications Administered Current Inpatient Medications Acetaminophen (Acetaminophen 325 Mg Tab) 650 mg PO Q4H PRN PRN Reason: pain/fever Stop: 05/05/22 11:23 Last Admin: 04/05/22 15:11 Dose: 650 mg Documented by: Albuterol (Albuterol Hfa 8 Gm Inhaler) 2 puffs INH Q6H PRN PRN Reason: Wheezing or shortness of breat Stop: 05/05/22 11:23 Albuterol (Albut/Ipratrop 3mg/0.5mg Neb 3 Ml Vial) 3 ml NEB Q2H PRN; Protocol PRN Reason: Shortness Of Breath Or Wheezing Stop: 05/05/22 12:13 Ascorbic Acid (Ascorbic Acid 500 Mg Tab) 1,000 mg PO DAILY [facility] Stop: 05/06/22 08:59 Last Admin: 04/06/22 08:57 Dose: 1,000 mg Documented by: Atenolol (Atenolol 25 Mg Tablet) 25 mg PO QAM [facility] Stop: 05/06/22 08:59 Last Admin: 04/06/22 08:56 Dose: 25 mg Documented by: Atorvastatin Calcium (Atorvastatin 40 Mg Tab) 40 mg PO DAILY [facility] Stop: 05/06/22 08:59 Last Admin: 04/06/22 08:56 Dose: 40 mg Documented by: Benzonatate (Benzonatate 100 Mg Capsule) 100 mg PO TID PRN PRN Reason: Cough Stop: 05/05/22 08:59 Last Admin: 04/06/22 07:12 Dose: 100 mg Documented by: Budesonide (Budesonide 0.5 Mg/2 Ml Vial (Pulmicort)) 0.5 mg INH BIDR [facility] Stop: 05/05/22 18:59 Last Admin: 04/06/22 19:38 Dose: 0.5 mg Documented by: Clopidogrel Bisulfate (Clopidogrel Bisulfate 75 Mg Tab) 75 mg PO QAM [facility] Stop: 05/06/22 08:59 Last Admin: 04/06/22 08:57 Dose: 75 mg Documented by: Dicyclomine HCl (Dicyclomine Hcl 10 Mg Cap) 10 mg PO Q4H PRN PRN Reason: Abdominal Discomfort Stop: 05/05/22 11:23 Enoxaparin Sodium (Enoxaparin Inj 40 Mg/0.4 Ml Syr) 40 mg SQ Q24H [facility] Stop: 05/05/22 12:59 Last Admin: 04/06/22 12:51 Dose: 40 mg Documented by: Guaifenesin (Guaifenesin 600 Mg Tabcr) 1,200 mg PO Q12 [facility] Stop: 05/05/22 20:59 Last Admin: 04/06/22 20:22 Dose: 1,200 mg Documented by: Guaifenesin/Codeine Phosphate (Guaifenesin/Codeine 200mg/20mg 10ml Udc) 10 ml PO Q6H PRN PRN Reason: Cough Stop: 05/06/22 15:51 Last Admin: 04/06/22 16:21 Dose: 10 ml Documented by: Hydrochlorothiazide (Hydrochlorothiazide 25 Mg Tab) 25 mg PO QAM [facility] Stop: 05/06/22 08:59 Last Admin: 04/06/22 08:57 Dose: 25 mg Documented by: Ceftriaxone Sodium 2,000 mg/ (Dextrose) 70 mls @ 100 mls/hr IV Q24H [facility]; Protocol Stop: 04/11/22 13:41 Last Infusion: 04/06/22 13:33 Dose: Infused Documented by: Azithromycin 500 mg/ Dextrose 255 mls @ 125 mls/hr IV Q24H [facility]; Protocol Stop: 04/09/22 16:03 Last Infusion: 04/06/22 15:38 Dose: Infused Documented by: Losartan Potassium (Losartan Potassium 50 Mg Tab) [facility] [place]: 05/05/22 09:44 Last Admin: 04/06/22 08:57 Dose: 50 mg Documented by: Meclizine HCl (Meclizine Hcl 25 Mg Tab) 25 mg PO Q6H PRN PRN Reason: Dizziness Or Vertigo Stop: 05/05/22 11:23 Pantoprazole Sodium (Pantoprazole 40 Mg Tab) 40 mg PO BIDM [facility] Stop: 05/05/22 16:59 Last Admin: 04/06/22 16:20 Dose: 40 mg Documented by: Polyethylene Glycol (Polyethylene (Miralax) 17 Gm Pack) 17 gm PO BID [facility] Stop: 05/05/22 20:59 Last Admin: 04/06/22 20:22 Dose: 17 gm Documented by: Potassium Chloride (Potassium Chloride 10 Meq Tabcr) 10 meq PO QAM [facility] Stop: 05/06/22 08:59 Last Admin: 04/06/22 08:57 Dose: 10 meq Documented by: Prednisone (Prednisone 20 Mg Tab) 40 mg PO DAILY [facility] Stop: 04/09/22 09:01 Last Admin: 04/06/22 08:57 Dose: 40 mg Documented by: Tramadol HCl (Tramadol Hcl 50 Mg Tablet) 50 mg PO Q6H PRN PRN Reason: pain Stop: 05/05/22 11:23 Last Admin: 04/06/22 07:12 Dose: 50 mg Documented by: Umeclidinium/Vilanterol (Umeclidinium/Vilanterol 62.5/25mcg 7 Puffs/Inhaler) 1 puffs INH QAM [facility] Stop: 05/06/22 08:59 Last Admin: 04/06/22 08:55 Dose: 1 puffs Documented by: Vitamin D (Cholecalciferol 1,000 Units 25 Mcg Tab) 2,000 units PO QAM [facility] Stop: 05/06/22 08:59 Last Admin: 04/06/22 08:56 Dose: 2,000 units Documented by: Zinc Sulfate (Zinc Sulfate 220 Mg Capsule) 220 mg PO DAILY [facility] Stop: 05/06/22 08:59 Last Admin: 04/06/22 08:57 Dose: 220 mg Documented by:
[2022-04-07] MEDS: ACETAMINOPHEN 325 MG TAB PO PRN (04:12)
[2022-04-07] MEDS: ALBUT/IPRATROP 3MG/0.5MG NEB 3 ML VIAL NEB PRN (07:04)
[2022-04-07] MEDS: BUDESONIDE 0.5 MG/2 ML VIAL (PULMICORT) INH SCH ×2 (07:04→19:44)
[2022-04-07] MEDS: ATORVASTATIN 40 MG TAB PO SCH (08:41)
[2022-04-07] MEDS: ATENOLOL 25 MG TABLET PO SCH (08:41)
[2022-04-07] MEDS: PANTOprazole 40 MG TAB PO SCH ×2 (08:41→17:07)
[2022-04-07] MEDS: ASCORBIC ACID 500 MG TAB PO SCH (08:41)
[2022-04-07] MEDS: hydroCHLOROthiazide 25 MG TAB PO SCH (08:42)
[2022-04-07] MEDS: CHOLECALCIFEROL 1,000 UNITS 25 MCG TAB PO SCH (08:42)
[2022-04-07] MEDS: CLOPIDOGREL BISULFATE 75 MG TAB PO SCH (08:42)
[2022-04-07] MEDS: LOSARTAN POTASSIUM 50 MG TAB PO SCH (08:42)
[2022-04-07] MEDS: guaiFENesin 600 MG TABCR PO SCH ×2 (08:42→20:13)
[2022-04-07] MEDS: POLYETHYLENE (MIRALAX) 17 GM PACK PO SCH ×2 (08:42→20:15)
[2022-04-07] MEDS: UMECLIDINIUM/VILANTEROL 62.5/25MCG 7 PUFFS/INHALER INH SCH (08:43)
[2022-04-07] MEDS: POTASSIUM CHLORIDE 10 MEQ TABCR PO SCH (08:43)
[2022-04-07] MEDS: predniSONE 20 MG TAB PO SCH (08:43)
[2022-04-07] MEDS: ZINC SULFATE 220 MG CAPSULE PO SCH (08:44)
[2022-04-07 09:28] LABS: Hemoglobin 13.1 g/dL (12.0-16.0); Mean Corpuscular Hemoglobin 30.6 pg (25-34); Mean Corpuscular Hgb Conc 31.2 g/dL (32-36); Mean Corpuscular Volume 98.1 fL (80-100); Mean Platelet Volume 9.6 fL (7.4-10.4); Platelet Count 213 K/uL (130-400); RDW Coefficient of Variation 14.3 % (11.5-14.5); RDW Standard Deviation 51.2 fL (36.4-46.3); Red Blood Count 4.28 M/uL (4.2-5.4); White Blood Count 10.46 K/uL (4.8-10.8)
[2022-04-07 10:09] LABS: BUN Creatinine Ratio 36.1 (10-20); Calcium 9.3 mg/dl (8.5-10.1); Creatinine Clr Calc Pharmacy 67.8 ml/min; Est GFR (Non-African American) 80.2 ml/min; Potassium 3.9 mmol/L (3.5-5.1)
[2022-04-07] MEDS: cefTRIAXone SODIUM 2,000 MG in DEXTROSE 5% 50 ML IV SCH (13:14)
[2022-04-07] MEDS: ENOXAPARIN INJ 40 MG/0.4 ML SYR SQ SCH (13:15)
--- NOTE | 2022-04-07 13:43 | Hospitalist Progress Note ---
Date of Service April 07, 2022 Assessment & Plan (1) Acute and chronic respiratory failure with hypoxia: (2) Sepsis: (3) Community acquired pneumonia: Plan: This is a 76yo F with a PMH of COPD and VIRA requiring 2L NC O2 HS, HTN, history of TIA and other medical problems listed below who presents with persistent cough and SOB x 3 days found to have community-acquired pneumonia with acute on chronic respiratory failure with hypoxia. Productive cough and increased shortness of breath x3 days T 37.8 C, HR 98, WBC 16K, Lactate WNL, covid, RSV and flu PCR negative Meet sepsis criteria but nontoxic in appearance, initial lactate within normal limits CXR with bilateral opacities which could reflect pneumonia Antibiotic therapy with Rocephin and azithromycin -improved and cultures negative so [id number] to Augmentin Allow one more dose of azithro to get 1.5gm in her and then stop. (4) COPD exacerbation: Plan: Given 60 mg IV Solu-Medrol in the ED. Continue steroid therapy with prednisone 40 mg daily x4 days Guaifenesin twice daily, Tessalon Perles as needed Initially hypoxic at 87-89%, continue supplemental oxygen 2 L nasal cannula for now, wean as tolerated She may need a two step at discharge and home oxygen during daytime based on her new symptoms since covid 19 as above. Would recommend outpatient PFTs when she is through this illness. (5) Hypertension: Plan: Given missed a.m. dose of atenolol, losartan. Resume hydrochlorothiazide tomorrow. Holding lasix for now (started on month trial of lasix yesterday by PCP for fluid retention) (6) History of TIA (transient ischemic attack): Plan: cont Plavix for secondary prophylaxis per home regimen. DVT Ppx: SQ Lovenox Code status: FULL PCP: [facility] Dispo: to home when she is feeling better. Consider 2 step test in am. DO Alexander Hayward Hospitalist Admission and Anticipated Discharge Date Admission Date: April 05, 2022 Subjective 76 yo F admitted with respiratory symptoms and pneumoina continues to feel better on current treatment no significant coughing or SOB afebrile no SOB still using oxygen and interestingly she mentions that she has been using her oxygen for night more during the daytime prior to this illness. She said that has been the case since she was infected with covid. Review of Systems Review of Systems: all systems were reviewed and negative except as indicated above. Physical Exam Physical Exam: CONSTITUTIONAL: obese, vitals as above, generally well- appearing, NAD EYES: normal conjunctivae, no scleral icterus ENT: external ear and nose normal, MMM NECK: trachea midline, RESPIRATORY: clear to auscultation bilaterally, diminished breath sounds throughout, no crackles, rales or wheezes, normal respiratory effort CARDIOVASCULAR: regular rate and rhythm, S1 and 2 heard without murmurs, gallops or rubs, no JVD, no peripheral edema CHEST: inspection of chest was normal GASTROINTESTINAL: normal bowel sounds, soft, nontender, no hepatomegaly, no guarding MUSCULOSKELETAL: strength 5/5 throughout, head is normocephalic and atraumatic, neck supple, normal palpation of chest wall without tenderness SKIN: warm and dry, no rashes NEUROLOGIC: patellar DTRs 2+ bilat. PERRL, EOMI, no facial palsy, no dysarthria. Touch, pain and proprioception normal. CN 2-12 grossly intact, no sensory deficit, normal cognition, normal speech, no tremor PSYCHIATRIC: alert cooperative and oriented to person, place and time. Euthymic mood, makes good eye contact, language grossly intact, recent and remote memory grossly intact. LYMPHATIC: no LAD Results & Data Results & Data ([facility]) Vital Signs (Past 12 Hours) Vital Signs Temp Pulse Resp BP Pulse Ox 04/07/22 12:00 36.8 C 69 19 127/78 95 04/07/22 07:50 36.5 C 73 20 155/82 H 94 04/07/22 07:04 74 18 95 Laboratory Results Short CBC 04/07/22 Range/Units 08:36 WBC 10.46 (4.8-10.8) K/uL Hgb 13.1 (12.0-16.0) g/dL Hct 42.0 (37-47) % Plt Count 213 (130-400) K/uL BMP 04/07/22 08:36 Sodium 139 Potassium 3.9 Chloride 99 Carbon Dioxide 34 H BUN 26 H Creatinine 0.72 Glucose 163 H Calcium 9.3 Medications Administered Current Inpatient Medications Acetaminophen (Acetaminophen 325 Mg Tab) 650 mg PO Q4H PRN PRN Reason: pain/fever Stop: 05/05/22 11:23 Last Admin: 04/07/22 04:12 Dose: 650 mg Documented by: Albuterol (Albuterol Hfa 8 Gm Inhaler) 2 puffs INH Q6H PRN PRN Reason: Wheezing or shortness of breat Stop: 05/05/22 11:23 Albuterol (Albut/Ipratrop 3mg/0.5mg Neb 3 Ml Vial) 3 ml NEB Q2H PRN; Protocol PRN Reason: Shortness Of Breath Or Wheezing Stop: 05/05/22 12:13 Last Admin: 04/07/22 07:04 Dose: 3 ml Documented by: Ascorbic Acid (Ascorbic Acid 500 Mg Tab) 1,000 mg PO DAILY [facility] Stop: 05/06/22 08:59 Last Admin: 04/07/22 08:41 Dose: 1,000 mg Documented by: Atenolol (Atenolol 25 Mg Tablet) 25 mg PO QAM [facility] Stop: 05/06/22 08:59 Last Admin: 04/07/22 08:41 Dose: 25 mg Documented by: Atorvastatin Calcium (Atorvastatin 40 Mg Tab) 40 mg PO DAILY [facility] Stop: 05/06/22 08:59 Last Admin: 04/07/22 08:41 Dose: 40 mg Documented by: Benzonatate (Benzonatate 100 Mg Capsule) 100 mg PO TID PRN PRN Reason: Cough Stop: 05/05/22 08:59 Last Admin: 04/06/22 07:12 Dose: 100 mg Documented by: Budesonide (Budesonide 0.5 Mg/2 Ml Vial (Pulmicort)) 0.5 mg INH BIDR [facility] Stop: 05/05/22 18:59 Last Admin: 04/07/22 07:04 Dose: 0.5 mg Documented by: Clopidogrel Bisulfate (Clopidogrel Bisulfate 75 Mg Tab) 75 mg PO QAM [facility] Stop: 05/06/22 08:59 Last Admin: 04/07/22 08:42 Dose: 75 mg Documented by: Dicyclomine HCl (Dicyclomine Hcl 10 Mg Cap) 10 mg PO Q4H PRN PRN Reason: Abdominal Discomfort Stop: 05/05/22 11:23 Enoxaparin Sodium (Enoxaparin Inj 40 Mg/0.4 Ml Syr) 40 mg SQ Q24H [facility] Stop: 05/05/22 12:59 Last Admin: 04/07/22 13:15 Dose: 40 mg Documented by: Guaifenesin (Guaifenesin 600 Mg Tabcr) 1,200 mg PO Q12 [facility] Stop: 05/05/22 20:59 Last Admin: 04/07/22 08:42 Dose: 1,200 mg Documented by: Guaifenesin/Codeine Phosphate (Guaifenesin/Codeine 200mg/20mg 10ml Udc) 10 ml PO Q6H PRN PRN Reason: Cough Stop: 05/06/22 15:51 Last Admin: 04/06/22 16:21 Dose: 10 ml Documented by: Hydrochlorothiazide (Hydrochlorothiazide 25 Mg Tab) 25 mg PO QAM [facility] Stop: 05/06/22 08:59 Last Admin: 04/07/22 08:42 Dose: 25 mg Documented by: Ceftriaxone Sodium 2,000 mg/ (Dextrose) 70 mls @ 100 mls/hr IV Q24H [facility]; Protocol Stop: 04/11/22 13:41 Last Admin: 04/07/22 13:14 Dose: 100 mls/hr Documented by: Azithromycin 500 mg/ Dextrose 255 mls @ 125 mls/hr IV Q24H [facility]; Protocol Stop: 04/09/22 16:03 Last Infusion: 04/06/22 15:38 Dose: Infused Documented by: Losartan Potassium (Losartan Potassium 50 Mg Tab) [facility] Stop: 05/05/22 09:44 Last Admin: 04/07/22 08:42 Dose: 50 mg Documented by: Meclizine HCl (Meclizine Hcl 25 Mg Tab) 25 mg PO Q6H PRN PRN Reason: Dizziness Or Vertigo Stop: 05/05/22 11:23 Pantoprazole Sodium (Pantoprazole 40 Mg Tab) 40 mg PO BIDM [facility] Stop: 05/05/22 16:59 Last Admin: 04/07/22 08:41 Dose: 40 mg Documented by: Polyethylene Glycol (Polyethylene (Miralax) 17 Gm Pack) 17 gm PO BID [facility] Stop: 05/05/22 20:59 Last Admin: 04/07/22 08:42 Dose: 17 gm Documented by: Potassium Chloride (Potassium Chloride 10 Meq Tabcr) 10 meq PO QAM [facility] Stop: 05/06/22 08:59 Last Admin: 04/07/22 08:43 Dose: 10 meq Documented by: Prednisone (Prednisone 20 Mg Tab) 40 mg PO DAILY [facility] Stop: 04/09/22 09:01 Last Admin: 04/07/22 08:43 Dose: 40 mg Documented by: Tramadol HCl (Tramadol Hcl 50 Mg Tablet) 50 mg PO Q6H PRN PRN Reason: pain Stop: 05/05/22 11:23 Last Admin: 04/06/22 07:12 Dose: 50 mg Documented by: Umeclidinium/Vilanterol (Umeclidinium/Vilanterol 62.5/25mcg 7 Puffs/Inhaler) 1 puffs INH QAM [facility] Stop: 05/06/22 08:59 Last Admin: 04/07/22 08:43 Dose: 1 puffs Documented by: Vitamin D (Cholecalciferol 1,000 Units 25 Mcg Tab) 2,000 units PO QAM [facility] Stop: 05/06/22 08:59 Last Admin: 04/07/22 08:42 Dose: 2,000 units Documented by: Zinc Sulfate (Zinc Sulfate 220 Mg Capsule) 220 mg PO DAILY [facility] Stop: 05/06/22 08:59 Last Admin: 04/07/22 08:44 Dose: 220 mg Documented by:
[2022-04-07] MEDS: AZITHROMYCIN 500 MG in DEXTROSE 5% 250 ML IV SCH (14:51)
[2022-04-07] MEDS: AMOXICILLIN/CLAVULANATE 875 MG TAB PO SCH (17:07)
[2022-04-08] MEDS: ACETAMINOPHEN 325 MG TAB PO PRN (03:50)
[2022-04-08] MEDS: ALBUT/IPRATROP 3MG/0.5MG NEB 3 ML VIAL NEB PRN (06:57)
[2022-04-08] MEDS: BUDESONIDE 0.5 MG/2 ML VIAL (PULMICORT) INH SCH ×2 (06:57→19:43)
[2022-04-08] MEDS: PANTOprazole 40 MG TAB PO SCH ×2 (08:05→17:09)
[2022-04-08] MEDS: ATENOLOL 25 MG TABLET PO SCH (08:05)
[2022-04-08] MEDS: ASCORBIC ACID 500 MG TAB PO SCH (08:05)
[2022-04-08] MEDS: AMOXICILLIN/CLAVULANATE 875 MG TAB PO SCH ×2 (08:05→17:10)
[2022-04-08] MEDS: CHOLECALCIFEROL 1,000 UNITS 25 MCG TAB PO SCH (08:06)
[2022-04-08] MEDS: ATORVASTATIN 40 MG TAB PO SCH (08:06)
[2022-04-08] MEDS: guaiFENesin 600 MG TABCR PO SCH (08:06)
[2022-04-08] MEDS: hydroCHLOROthiazide 25 MG TAB PO SCH (08:06)
[2022-04-08] MEDS: CLOPIDOGREL BISULFATE 75 MG TAB PO SCH (08:06)
[2022-04-08] MEDS: LOSARTAN POTASSIUM 50 MG TAB PO SCH (08:07)
[2022-04-08] MEDS: ZINC SULFATE 220 MG CAPSULE PO SCH (08:07)
[2022-04-08] MEDS: predniSONE 20 MG TAB PO SCH (08:07)
[2022-04-08] MEDS: UMECLIDINIUM/VILANTEROL 62.5/25MCG 7 PUFFS/INHALER INH SCH (08:07)
[2022-04-08] MEDS: POLYETHYLENE (MIRALAX) 17 GM PACK PO SCH ×2 (08:10→20:12)
[2022-04-08] MEDS: POTASSIUM CHLORIDE 10 MEQ TABCR PO SCH (08:10)
[2022-04-08] MEDS: ENOXAPARIN INJ 40 MG/0.4 ML SYR SQ SCH (14:02)
[2022-04-08] MEDS: BENZONATATE 100 MG CAPSULE PO SCH ×2 (14:02→20:11)
--- NOTE | 2022-04-08 14:22 | Hospitalist Progress Note ---
Date of Service April 08, 2022 Assessment & Plan (1) Acute and chronic respiratory failure with hypoxia: (2) Sepsis: (3) Community acquired pneumonia: Plan: This is a 76yo F with a PMH of COPD and VIRA requiring 2L NC O2 HS, HTN, history of TIA and other medical problems listed below who presents with persistent cough and SOB x 3 days found to have community-acquired pneumonia with acute on chronic respiratory failure with hypoxia. Productive cough and increased shortness of breath x3 days T 37.8 C, HR 98, WBC 16K, Lactate WNL, covid, RSV and flu PCR negative Meet sepsis criteria but nontoxic in appearance, initial lactate within normal limits CXR with bilateral opacities which could reflect pneumonia Antibiotic therapy with Rocephin and azithromycin -improved and cultures negative so [id number] to Augmentin (4) COPD exacerbation: Plan: Given 60 mg IV Solu-Medrol in the ED. Continue steroid therapy with prednisone 40 mg daily x4 days Guaifenesin twice daily, Tessalon Perles as needed Initially hypoxic at 87-89%, continue supplemental oxygen 2 L nasal cannula for now, wean as tolerated She reports using home oxygen intermittently during daytime based on her new symptoms since covid 19 as above Would recommend outpatient PFTs when she is through this illness. Continuous oxygen needs per 2 step. Script placed in chart. (5) Hypertension: Plan: Chronic, stable, continue home BP meds (6) History of TIA (transient ischemic attack): Plan: cont Plavix for secondary prophylaxis per home regimen. DVT Ppx: SQ Lovenox Code status: FULL PCP: [facility] Dispo: to home when she is feeling better, likely [facility]mrw [facility] Admission and Anticipated Discharge Date Admission Date: April 05, 2022 Subjective 76 yo F admitted with respiratory symptoms and pneumoina continues to feel better on current treatment but she is continuing to cough and this bothers her we discussed a plan with Bebo hawkins and jean GRAY to help her cough continue breathing treatments as needed 2 step performed today revealed that she needs oxygen continuously. afebrile Review of Systems Review of Systems: all systems were reviewed and negative except as indicated above. Physical Exam Physical Exam: CONSTITUTIONAL: obese, vitals as above, generally well- appearing, NAD EYES: normal conjunctivae, no scleral icterus ENT: external ear and nose normal, MMM NECK: trachea midline, RESPIRATORY: clear to auscultation bilaterally, diminished breath sounds throughout, no crackles, rales or wheezes, normal respiratory effort CARDIOVASCULAR: regular rate and rhythm, S1 and 2 heard without murmurs, gallops or rubs, no JVD, no peripheral edema CHEST: inspection of chest was normal GASTROINTESTINAL: normal bowel sounds, soft, nontender, ND, no guarding MUSCULOSKELETAL: strength 5/5 throughout, head is normocephalic and atraumatic, neck supple, normal palpation of chest wall without tenderness SKIN: warm and dry, no rashes NEUROLOGIC: CN 2-12 grossly intact, no sensory deficit, normal cognition, normal speech, no tremor PSYCHIATRIC: alert cooperative and oriented to person, place and time. Euth ymic mood, makes good eye contact, language grossly intact, recent and remote memory grossly intact. Results & Data Results & Data ([facility]) Vital Signs (Past 12 Hours) Vital Signs Temp Pulse Pulse Pulse Pulse Pulse Resp 04/08/22 07:30 36.6 C 60 20 04/08/22 07:29 65 71 74 62 04/08/22 06:57 68 Resp Resp Resp Resp BP Pulse Ox Pulse Ox 04/08/22 07:30 133/85 90 04/08/22 07:29 18 22 20 18 92 04/08/22 06:57 95 Pulse Ox Pulse Ox Pulse Ox 04/08/22 07:30 04/08/22 07:29 91 93 88 L 04/08/22 06:57 Medications Administered Current Inpatient Medications Acetaminophen (Acetaminophen 325 Mg Tab) 650 mg PO Q4H PRN PRN Reason: pain/fever Stop: 05/05/22 11:23 Last Admin: 04/08/22 03:50 Dose: 650 mg Documented by: Albuterol (Albuterol Hfa 8 Gm Inhaler) 2 puffs INH Q6H PRN PRN Reason: Wheezing or shortness of breat Stop: 05/05/22 11:23 Albuterol (Albut/Ipratrop 3mg/0.5mg Neb 3 Ml Vial) 3 ml NEB Q2H PRN; Protocol PRN Reason: Shortness Of Breath Or Wheezing Stop: 05/05/22 12:13 Last Admin: 04/08/22 06:57 Dose: 3 ml Documented by: Amoxicillin/Clavulanate Potassium (Amoxicillin/Clavulanate 875 Mg Tab) 1 tab PO BIDM [facility] Stop: 04/14/22 16:59 Last Admin: 04/08/22 08:05 Dose: 1 tab Documented by: Ascorbic Acid (Ascorbic Acid 500 Mg Tab) 1,000 mg PO DAILY [facility] Stop: 05/06/22 08:59 Last Admin: 04/08/22 08:05 Dose: 1,000 mg Documented by: Atenolol (Atenolol 25 Mg Tablet) 25 mg PO QAM [facility] Stop: 05/06/22 08:59 Last Admin: 04/08/22 08:05 Dose: 25 mg Documented by: Atorvastatin Calcium (Atorvastatin 40 Mg Tab) 40 mg PO DAILY [facility] Stop: 05/06/22 08:59 Last Admin: 04/08/22 08:06 Dose: 40 mg Documented by: Benzonatate (Benzonatate 100 Mg Capsule) 100 mg PO TID [facility] Stop: 05/08/22 13:59 Last Admin: 04/08/22 14:02 Dose: 100 mg Documented by: Budesonide (Budesonide 0.5 Mg/2 Ml Vial (Pulmicort)) 0.5 mg INH BIDR [facility] Stop: 05/05/22 18:59 Last Admin: 04/08/22 06:57 Dose: 0.5 mg Documented by: Clopidogrel Bisulfate (Clopidogrel Bisulfate 75 Mg Tab) 75 mg PO QAM [facility] Stop: 05/06/22 08:59 Last Admin: 04/08/22 08:06 Dose: 75 mg Documented by: Dicyclomine HCl (Dicyclomine Hcl 10 Mg Cap) 10 mg PO Q4H PRN PRN Reason: Abdominal Discomfort Stop: 05/05/22 11:23 Enoxaparin Sodium (Enoxaparin Inj 40 Mg/0.4 Ml Syr) 40 mg SQ Q24H [facility] Stop: 05/05/22 12:59 Last Admin: 04/08/22 14:02 Dose: 40 mg Documented by: Guaifenesin (Guaifenesin 600 Mg Tabcr) 1,200 mg PO Q12 [facility] Stop: 05/05/22 20:59 Last Admin: 04/08/22 08:06 Dose: 1,200 mg Documented by: Guaifenesin/Codeine Phosphate (Guaifenesin/Codeine 200mg/20mg 10ml Udc) 10 ml PO Q6H [facility] Stop: 04/09/22 09:29 Last Admin: 04/08/22 10:06 Dose: 10 ml Documented by: Hydrochlorothiazide (Hydrochlorothiazide 25 Mg Tab) 25 mg PO QAM [facility] Stop: 05/06/22 08:59 Last Admin: 04/08/22 08:06 Dose: 25 mg Documented by: Losartan Potassium (Losartan Potassium 50 Mg Tab) 50 mg PO QAM [facility] Stop: 05/05/22 09:44 Last Admin: 04/08/22 08:07 Dose: 50 mg Documented by: Meclizine HCl (Meclizine Hcl 25 Mg Tab) 25 mg PO Q6H PRN PRN Reason: Dizziness Or Vertigo Stop: 05/05/22 11:23 Pantoprazole Sodium (Pantoprazole 40 Mg Tab) 40 mg PO BIDM [facility] Stop: 05/05/22 16:59 Last Admin: 04/08/22 08:05 Dose: 40 mg Documented by: Polyethylene Glycol (Polyethylene (Miralax) 17 Gm Pack) 17 gm PO BID [facility] Stop: 05/05/22 20:59 Last Admin: 04/08/22 08:10 Dose: 17 gm Documented by: Potassium Chloride (Potassium Chloride 10 Meq Tabcr) 10 meq PO QAM [facility] Stop: 05/06/22 08:59 Last Admin: 04/08/22 08:10 Dose: 10 meq Documented by: Prednisone (Prednisone 20 Mg Tab) 40 mg PO DAILY [facility] Stop: 04/09/22 09:01 Last Admin: 04/08/22 08:07 Dose: 40 mg Documented by: Tramadol HCl (Tramadol Hcl 50 Mg Tablet) 50 mg PO Q6H PRN PRN Reason: pain Stop: 05/05/22 11:23 Last Admin: 04/06/22 07:12 Dose: 50 mg Documented by: Umeclidinium/Vilanterol (Umeclidinium/Vilanterol 62.5/25mcg 7 Puffs/Inhaler) 1 puffs INH [facility] Stop: 05/06/22 08:59 Last Admin: 04/08/22 08:07 Dose: 1 puffs Documented by: Vitamin D (Cholecalciferol 1,000 Units 25 Mcg Tab) 2,000 units PO QAM [facility] Stop: 05/06/22 08:59 Last Admin: 04/08/22 08:06 Dose: 2,000 units Documented by: Zinc Sulfate (Zinc Sulfate 220 Mg Capsule) 220 mg PO DAILY [facility] Stop: 05/06/22 08:59 Last Admin: 04/08/22 08:07 Dose: 220 mg Documented by:
[2022-04-09] MEDS: ALBUT/IPRATROP 3MG/0.5MG NEB 3 ML VIAL NEB PRN (07:04)
[2022-04-09] MEDS: BUDESONIDE 0.5 MG/2 ML VIAL (PULMICORT) INH SCH ×2 (07:04→19:35)
[2022-04-09] MEDS: PANTOprazole 40 MG TAB PO SCH ×2 (07:49→17:07)
[2022-04-09] MEDS: AMOXICILLIN/CLAVULANATE 875 MG TAB PO SCH ×2 (07:49→17:07)
[2022-04-09] MEDS: ATENOLOL 25 MG TABLET PO SCH (07:50)
[2022-04-09] MEDS: ASCORBIC ACID 500 MG TAB PO SCH (07:50)
[2022-04-09] MEDS: ATORVASTATIN 40 MG TAB PO SCH (07:50)
[2022-04-09] MEDS: CHOLECALCIFEROL 1,000 UNITS 25 MCG TAB PO SCH (07:51)
[2022-04-09] MEDS: UMECLIDINIUM/VILANTEROL 62.5/25MCG 7 PUFFS/INHALER INH SCH (07:51)
[2022-04-09] MEDS: predniSONE 20 MG TAB PO SCH (07:51)
[2022-04-09] MEDS: BENZONATATE 100 MG CAPSULE PO SCH ×3 (07:51→20:17)
[2022-04-09] MEDS: POTASSIUM CHLORIDE 10 MEQ TABCR PO SCH (07:51)
[2022-04-09] MEDS: POLYETHYLENE (MIRALAX) 17 GM PACK PO SCH ×2 (07:51→20:17)
[2022-04-09] MEDS: CLOPIDOGREL BISULFATE 75 MG TAB PO SCH (07:51)
[2022-04-09] MEDS: LOSARTAN POTASSIUM 50 MG TAB PO SCH (07:51)
[2022-04-09] MEDS: hydroCHLOROthiazide 25 MG TAB PO SCH (07:51)
[2022-04-09] MEDS: ZINC SULFATE 220 MG CAPSULE PO SCH (07:52)
[2022-04-09] MEDS: ACETAMINOPHEN 325 MG TAB PO PRN (11:02)
--- NOTE | 2022-04-09 13:34 | Hospitalist Progress Note ---
Date of Service April 09, 2022 Assessment & Plan (1) Acute and chronic respiratory failure with hypoxia: Plan: Secondary to COPD exacerbation as below (2) Sepsis: (3) Community acquired pneumonia: Plan: This is a 76yo F with a PMH of COPD and VIRA requiring 2L NC O2 HS, HTN, history of TIA and other medical problems listed below who presents with persistent cough and SOB x 3 days found to have community-acquired pneumonia with acute on chronic respiratory failure with hypoxia. Productive cough and increased shortness of breath x3 days T 37.8 C, HR 98, WBC 16K, Lactate WNL, covid, RSV and flu PCR negative Meet sepsis criteria but nontoxic in appearance, initial lactate within normal limits CXR with bilateral opacities which could reflect pneumonia Antibiotic therapy with Rocephin and azithromycin -improved and cultures negative so [id number] to Augmentin Clinically better but he still has cough Will give cough suppressant and continue current antibiotic (4) COPD exacerbation: Plan: Given 60 mg IV Solu-Medrol in the ED. Continue steroid therapy with prednisone 40 mg daily x4 days Guaifenesin twice daily, Tessalon Perles as needed Initially hypoxic at 87-89%, continue supplemental oxygen 2 L nasal cannula for now, wean as tolerated She reports using home oxygen intermittently during daytime based on her new symptoms since covid 19 as above Would recommend outpatient PFTs when she is through this illness. Continuous oxygen needs per 2 step. Script placed in chart. Advised to ambulate and likely discharge tomorrow (5) Hypertension: Plan: Chronic, stable, continue home BP meds (6) History of TIA (transient ischemic attack): Plan: cont Plavix for secondary prophylaxis per home regimen. DVT Ppx: SQ Lovenox Code status: FULL PCP: [employer] Dispo: to home when she is feeling better, likely tmrw Admission and Anticipated Discharge Date Admission Date: April 05, 2022 Subjective 04/09/2022 The patient was seen and examined in medical telemetry unit She has been feeling better but complains to have more cough without any shortness of breath Denies any other symptoms She feels she is not yet ready to be discharged Review of Systems Review of Systems: All systems reviewed and are unremarkable except as noted below Respiratory: Has ongoing cough without wheezing and no shortness of breath at rest Physical Exam Physical Exam: Lying in bed comfortably Constitutional: well developed, well nourished and + obese; not ill appearing Eyes: PERRL, conjunctivae normal, anicteric sclerae ENMT: external ear and nose normal, oropharynx normal Neck: trachea midline, no thyromegaly Respiratory: no respiratory distress Auscultation: + diminished lung sounds; no crackles and no wheezes Cardiovascular: Rate/Rhythm: regular rate and regular rhythm; not tachycardic Heart Sounds: normal S1 and normal S2; no murmur Extremities: + edema (Trace edema bilaterally) Gastrointestinal (Abdomen): Inspection/Auscultation: normal bowel sounds; abdomen not distended Percussion/Palpation: abdomen soft; abdomen nontender Musculoskeletal: No acute arthritis in any joint Neurologic: normal touch/pain/proprioception and moves all extremities Psychiatric: A+Ox3, euthymic affect Lymphatic: no cervical or axillary lymphadenopathy Results & Data Results & Data ([facility]) Vital Signs (Past 12 Hours) Vital Signs Temp Pulse Resp BP Pulse Ox 04/09/22 08:08 36.5 C 63 18 132/80 95 04/09/22 07:05 68 16 94 Medications Administered Current Inpatient Medications Acetaminophen (Acetaminophen 325 Mg Tab) 650 mg PO Q4H PRN PRN Reason: pain/fever Stop: 05/05/22 11:23 Last Admin: 04/09/22 11:02 Dose: 650 mg Documented by: Albuterol (Albuterol Hfa 8 Gm Inhaler) 2 puffs INH Q6H PRN PRN Reason: Wheezing or shortness of breat Stop: 05/05/22 11:23 Albuterol (Albut/Ipratrop 3mg/0.5mg Neb 3 Ml Vial) 3 ml NEB Q2H PRN; Protocol PRN Reason: Shortness Of Breath Or Wheezing Stop: 05/05/22 12:13 Last Admin: 04/09/22 07:04 Dose: 3 ml Documented by: Amoxicillin/Clavulanate Potassium (Amoxicillin/Clavulanate 875 Mg Tab) 1 tab PO BIDM [facility] Stop: 04/14/22 16:59 Last Admin: 04/09/22 07:49 Dose: 1 tab Documented by: Ascorbic Acid (Ascorbic Acid 500 Mg Tab) 1,000 mg PO DAILY [facility] Stop: 05/06/22 08:59 Last Admin: 04/09/22 07:50 Dose: 1,000 mg Documented by: Atenolol (Atenolol 25 Mg Tablet) 25 mg PO QAM [facility] Stop: 05/06/22 08:59 Last Admin: 04/09/22 07:50 Dose: 25 mg Documented by: Atorvastatin Calcium (Atorvastatin 40 Mg Tab) 40 mg PO DAILY [facility] Stop: 05/06/22 08:59 Last Admin: 04/09/22 07:50 Dose: 40 mg Documented by: Benzonatate (Benzonatate 100 Mg Capsule) 100 mg PO TID [facility] Stop: 05/08/22 13:59 Last Admin: 04/09/22 07:51 Dose: 100 mg Documented by: Budesonide (Budesonide 0.5 Mg/2 Ml Vial (Pulmicort)) 0.5 mg INH BIDR [facility] Stop: 05/05/22 18:59 Last Admin: 04/09/22 07:04 Dose: 0.5 mg Documented by: Clopidogrel Bisulfate (Clopidogrel Bisulfate 75 Mg Tab) 75 mg PO QAM [facility] Stop: 05/06/22 08:59 Last Admin: 04/09/22 07:51 Dose: 75 mg Documented by: Dicyclomine HCl (Dicyclomine Hcl 10 Mg Cap) 10 mg PO Q4H PRN PRN Reason: Abdominal Discomfort Stop: 05/05/22 11:23 Enoxaparin Sodium (Enoxaparin Inj 40 Mg/0.4 Ml Syr) 40 mg SQ Q24H [facility] Stop: 05/05/22 12:59 Last Admin: 04/08/22 14:02 Dose: 40 mg Documented by: Guaifenesin (Guaifenesin 600 Mg Tabcr) 1,200 mg PO Q12 [facility] Stop: 05/05/22 20:59 Last Admin: 04/08/22 08:06 Dose: 1,200 mg Documented by: Hydrochlorothiazide (Hydrochlorothiazide 25 Mg Tab) 25 mg PO QAM [facility] Stop: 05/06/22 08:59 Last Admin: 04/09/22 07:51 Dose: 25 mg Documented by: Losartan Potassium (Losartan Potassium 50 Mg Tab) 50 mg PO QAM [facility] Stop: 05/05/22 09:44 Last Admin: 04/09/22 07:51 Dose: 50 mg Documented by: Meclizine HCl (Meclizine Hcl 25 Mg Tab) 25 mg PO Q6H PRN PRN Reason: Dizziness Or Vertigo Stop: 05/05/22 11:23 Pantoprazole Sodium (Pantoprazole 40 Mg Tab) 40 mg PO BIDM [facility] Stop: 05/05/22 16:59 Last Admin: 04/09/22 07:49 Dose: 40 mg Documented by: Polyethylene Glycol (Polyethylene (Miralax) 17 Gm Pack) 17 gm PO BID [facility] Stop: 05/05/22 20:59 Last Admin: 04/09/22 07:51 Dose: 17 gm Documented by: Potassium Chloride (Potassium Chloride 10 Meq Tabcr) 10 meq PO QAM [facility] Stop: 05/06/22 08:59 Last Admin: 04/09/22 07:51 Dose: 10 meq Documented by: Tramadol HCl (Tramadol Hcl 50 Mg Tablet) 50 mg PO Q6H PRN PRN Reason: pain Stop: 05/05/22 11:23 Last Admin: 04/06/22 07:12 Dose: 50 mg Documented by: Umeclidinium/Vilanterol (Umeclidinium/Vilanterol 62.5/25mcg 7 Puffs/Inhaler) 1 puffs INH QAM [facility] Stop: 05/06/22 08:59 Last Admin: 04/09/22 07:51 Dose: 1 puffs Documented by: Vitamin D (Cholecalciferol 1,000 Units 25 Mcg Tab) 2,000 units PO QAM [facility] Stop: 05/06/22 08:59 Last Admin: 04/09/22 07:51 Dose: 2,000 units Documented by: Zinc Sulfate (Zinc Sulfate 220 Mg Capsule) 220 mg PO DAILY [facility] Stop: 05/06/22 08:59 Last Admin: 04/09/22 07:52 Dose: 220 mg Documented by:
[2022-04-09] MEDS: ENOXAPARIN INJ 40 MG/0.4 ML SYR SQ SCH (14:53)
[2022-04-09] MEDS: guaiFENesin 600 MG TABCR PO SCH (20:06)
[2022-04-10] MEDS: BUDESONIDE 0.5 MG/2 ML VIAL (PULMICORT) INH SCH (07:13)
[2022-04-10] MEDS: ATORVASTATIN 40 MG TAB PO SCH (09:42)
[2022-04-10] MEDS: PANTOprazole 40 MG TAB PO SCH (09:42)
[2022-04-10] MEDS: ASCORBIC ACID 500 MG TAB PO SCH (09:42)
[2022-04-10] MEDS: ATENOLOL 25 MG TABLET PO SCH (09:42)
[2022-04-10] MEDS: AMOXICILLIN/CLAVULANATE 875 MG TAB PO SCH (09:42)
[2022-04-10] MEDS: hydroCHLOROthiazide 25 MG TAB PO SCH (09:43)
[2022-04-10] MEDS: CHOLECALCIFEROL 1,000 UNITS 25 MCG TAB PO SCH (09:43)
[2022-04-10] MEDS: guaiFENesin 600 MG TABCR PO SCH (09:43)
[2022-04-10] MEDS: CLOPIDOGREL BISULFATE 75 MG TAB PO SCH (09:43)
[2022-04-10] MEDS: BENZONATATE 100 MG CAPSULE PO SCH ×2 (09:43→13:38)
[2022-04-10] MEDS: UMECLIDINIUM/VILANTEROL 62.5/25MCG 7 PUFFS/INHALER INH SCH (09:44)
[2022-04-10] MEDS: POTASSIUM CHLORIDE 10 MEQ TABCR PO SCH (09:44)
[2022-04-10] MEDS: ZINC SULFATE 220 MG CAPSULE PO SCH (09:44)
[2022-04-10] MEDS: LOSARTAN POTASSIUM 50 MG TAB PO SCH (09:44)
[2022-04-10] MEDS: POLYETHYLENE (MIRALAX) 17 GM PACK PO SCH (09:44)
[2022-04-10] MEDS: ENOXAPARIN INJ 40 MG/0.4 ML SYR SQ SCH (13:38)
--- NOTE | 2022-04-10 13:59 | Hospitalist Progress Note ---
Date of Service April 10, 2022 Assessment & Plan (1) Acute and chronic respiratory failure with hypoxia: Plan: Secondary to COPD exacerbation as below (2) Sepsis: (3) Community acquired pneumonia: Plan: This is a 76yo F with a PMH of COPD and VIRA requiring 2L NC O2 HS, HTN, history of TIA and other medical problems listed below who presents with persistent cough and SOB x 3 days found to have community-acquired pneumonia with acute on chronic respiratory failure with hypoxia. Productive cough and increased shortness of breath x3 days T 37.8 C, HR 98, WBC 16K, Lactate WNL, covid, RSV and flu PCR negative Meet sepsis criteria but nontoxic in appearance, initial lactate within normal limits CXR with bilateral opacities which could reflect pneumonia Antibiotic therapy with Rocephin and azithromycin -improved and cultures negative so [id number] to Augmentin Clinically better but he still has cough Will give cough suppressant and continue current antibiotic Much better and will be discharged home this afternoon to finish a complete 10 days course of antibiotic (4) COPD exacerbation: Plan: Given 60 mg IV Solu-Medrol in the ED. Continue steroid therapy with prednisone 40 mg daily x4 days Guaifenesin twice daily, Tessalon Perles as needed Initially hypoxic at 87-89%, continue supplemental oxygen 2 L nasal cannula for now, wean as tolerated She reports using home oxygen intermittently during daytime based on her new symptoms since covid 19 as above Would recommend outpatient PFTs when she is through this illness. Continuous oxygen needs per 2 step. Script placed in chart. Advised to ambulate and likely discharge tomorrow Has a two-step O2 saturation test and she qualifies for 2 L with ambulation (5) Hypertension: Plan: Chronic, stable, continue home BP meds (6) History of TIA (transient ischemic attack): Plan: cont Plavix for secondary prophylaxis per home regimen. DVT Ppx: SQ Lovenox Code status: FULL PCP: [facility] Dispo: to home when she is feeling better, likely tmrw Admission and Anticipated Discharge Date Admission Date: April 05, 2022 Subjective 04/09/2022 The patient was seen and examined in medical telemetry unit She has been feeling better but complains to have more cough without any shortness of breath Denies any other symptoms She feels she is not yet ready to be discharged 04/10/2022 The patient was seen and examined in medical telemetry unit She has been feeling much better and denies any shortness of breath at rest She complains to have some cough which is dry without any chest pain and/or palpitation Review of Systems Review of Systems: All systems reviewed and are unremarkable except as noted below Respiratory: Has ongoing cough without wheezing and no shortness of breath at rest Physical Exam Physical Exam: Lying in bed comfortably Constitutional: well developed, well nourished and + obese; not ill appearing Eyes: PERRL, conjunctivae normal, anicteric sclerae ENMT: external ear and nose normal, oropharynx normal Neck: trachea midline, no thyromegaly Respiratory: no respiratory distress Auscultation: + diminished lung sounds; no crackles and no wheezes Cardiovascular: Rate/Rhythm: regular rate and regular rhythm; not tachycardic Heart Sounds: normal S1 and normal S2; no murmur Extremities: + edema (Trace edema bilaterally) Gastrointestinal (Abdomen): Inspection/Auscultation: normal bowel sounds; abdomen not distended Percussion/Palpation: abdomen soft; abdomen nontender Musculoskeletal: No acute arthritis involving any joint Neurologic: normal touch/pain/proprioception and moves all extremities Psychiatric: A+Ox3, euthymic affect Lymphatic: no cervical or axillary lymphadenopathy Results & Data Results & Data ([facility]) Vital Signs (Past 12 Hours) Vital Signs Temp Pulse Pulse Pulse Pulse Pulse Pulse 04/10/22 11:45 72 78 64 64 04/10/22 08:00 55 L 04/10/22 07:13 80 04/10/22 06:29 37.0 C 61 Resp Resp Resp Resp Resp BP Pulse Ox 04/10/22 11:45 22 24 20 18 04/10/22 08:00 04/10/22 07:13 18 95 04/10/22 06:29 18 151/80 H 95 Pulse Ox Pulse Ox Pulse Ox Pulse Ox 04/10/22 11:45 90 86 L 94 91 04/10/22 08:00 04/10/22 07:13 04/10/22 06:29 Medications Administered Current Inpatient Medications Acetaminophen (Acetaminophen 325 Mg Tab) 650 mg PO Q4H PRN PRN Reason: pain/fever Stop: 05/05/22 11:23 Last Admin: 04/09/22 11:02 Dose: 650 mg Documented by: Albuterol (Albuterol Hfa 8 Gm Inhaler) 2 puffs INH Q6H PRN PRN Reason: Wheezing or shortness of breat Stop: 05/05/22 11:23 Albuterol (Albut/Ipratrop 3mg/0.5mg Neb 3 Ml Vial) 3 ml NEB Q2H PRN; Protocol PRN Reason: Shortness Of Breath Or Wheezing Stop: 05/05/22 12:13 Last Admin: 04/09/22 07:04 Dose: 3 ml Documented by: Amoxicillin/Clavulanate Potassium (Amoxicillin/Clavulanate 875 Mg Tab) 1 tab PO BIDM [facility] Stop: 04/14/22 16:59 Last Admin: 04/10/22 09:42 Dose: 1 tab Documented by: Ascorbic Acid (Ascorbic Acid 500 Mg Tab) 1,000 mg PO DAILY [facility] Stop: 05/06/22 08:59 Last Admin: 04/10/22 09:42 Dose: 1,000 mg Documented by: Atenolol (Atenolol 25 Mg Tablet) 25 mg PO QAM [facility] Stop: 05/06/22 08:59 Last Admin: 04/10/22 09:42 Dose: 25 mg Documented by: Atorvastatin Calcium (Atorvastatin 40 Mg Tab) 40 mg PO DAILY [facility] Stop: 05/06/22 08:59 Last Admin: 04/10/22 09:42 Dose: 40 mg Documented by: Benzonatate (Benzonatate 100 Mg Capsule) 100 mg PO TID [facility] Stop: 05/08/22 13:59 Last Admin: 04/10/22 13:38 Dose: 100 mg Documented by: Budesonide (Budesonide 0.5 Mg/2 Ml Vial (Pulmicort)) 0.5 mg INH BIDR [facility] Stop: 05/05/22 18:59 Last Admin: 04/10/22 07:13 Dose: 0.5 mg Documented by: Clopidogrel Bisulfate (Clopidogrel Bisulfate 75 Mg Tab) 75 mg PO QAM [facility] Stop: 05/06/22 08:59 Last Admin: 04/10/22 09:43 Dose: 75 mg Documented by: Dicyclomine HCl (Dicyclomine Hcl 10 Mg Cap) 10 mg PO Q4H PRN PRN Reason: Abdominal Discomfort Stop: 05/05/22 11:23 Enoxaparin Sodium (Enoxaparin Inj 40 Mg/0.4 Ml Syr) 40 mg SQ Q24H [facility] Stop: 05/05/22 12:59 Last Admin: 04/10/22 13:38 Dose: 40 mg Documented by: Guaifenesin (Guaifenesin 600 Mg Tabcr) 1,200 mg PO Q12 [facility] Stop: 05/05/22 20:59 Last Admin: 04/10/22 09:43 Dose: 1,200 mg Documented by: Hydrochlorothiazide ([facility]chlorothiazide 25 Mg Tab) [facility] Stop: 05/06/22 08:59 Last Admin: 04/10/22 09:43 Dose: 25 mg Documented by: Losartan Potassium (Losartan Potassium 50 Mg Tab) [facility] [place] Stop: 05/05/22 09:44 Last Admin: 04/10/22 09:44 Dose: 50 mg Documented by: Meclizine HCl (Meclizine Hcl 25 Mg Tab) 25 mg PO Q6H PRN PRN Reason: Dizziness Or Vertigo Stop: 05/05/22 11:23 Pantoprazole Sodium (Pantoprazole 40 Mg Tab) 40 mg PO BIDM [facility] Stop: 05/05/22 16:59 Last Admin: 04/10/22 09:42 Dose: 40 mg Documented by: Polyethylene Glycol (Polyethylene (Miralax) 17 Gm Pack) 17 gm PO BID [facility] Stop: 05/05/22 20:59 Last Admin: 04/10/22 09:44 Dose: 17 gm Documented by: Potassium Chloride (Potassium Chloride 10 Meq Tabcr) 10 meq [facility] [place] Stop: 05/06/22 08:59 Last Admin: 04/10/22 09:44 Dose: 10 meq Documented by: Tramadol HCl (Tramadol Hcl 50 Mg Tablet) 50 mg PO Q6H PRN PRN Reason: pain Stop: 05/05/22 11:23 Last Admin: 04/06/22 07:12 Dose: 50 mg Documented by: Umeclidinium/Vilanterol (Umeclidinium/Vilanterol 62.5/25mcg 7 Puffs/Inhaler) 1 puffs INH [facility] Stop: 05/06/22 08:59 Last Admin: 04/10/22 09:44 Dose: 1 puffs Documented by: Vitamin D (Cholecalciferol 1,000 Units 25 Mcg Tab) 2,000 units PO QAM [facility] Stop: 05/06/22 08:59 Last Admin: 04/10/22 09:43 Dose: 2,000 units Documented by: Zinc Sulfate (Zinc Sulfate 220 Mg Capsule) 220 mg PO DAILY [facility] Stop: 05/06/22 08:59 Last Admin: 04/10/22 09:44 Dose: 220 mg Documented by:
--- NOTE | 2022-04-10 17:56 | Discharge Summary ---
Date of Service April 10, 2022 Admission HPI Per Admitting Provider This is a 76yo F with a PMH of COPD and VIRA requiring 2L NC O2 HS, HTN, history of TIA and other medical problems listed below who presents with persistent cough and SOB x 3 days. Patient with some SOB at baseline with COPD but has progressed since developing cold like symptoms 3 days prior, including rhinorrhea, headache and sore throat. Cough is productive with greenish sputum and associated shortness of breath with rest and activity. Endorses some abdominal soreness from repeated coughing as well as some generalized weakness, nausea and chills. Denies any fever, chest pain, vomiting, dysuria, diarrhea or constipation. Normally only requires oxygen at night but has been using during the day due to increased shortness of breath. Has been using nebulizer at home. Former smoker but quit 27 years ago. Did not take any morning medications today. Admission Exam Per Admitting Provider General: Obese woman, no acute distress Eyes: PERRL, conjunctivae normal, not pale, anicteric sclerae, EOM intact bilaterally ENMT: External ear and nose normal, oropharynx normal Respiratory: Normal respiratory effort, no respiratory distress, +cough, globally diminished breath sounds, on nasal cannula at 2l/min with ox sat 92% Cardiovascular: Regular rhythm, HR 105, S1 S2 Gastrointestinal (Abdomen): Abdomen is not distended, soft, non-tender to palpation, no guarding, no palpable hepatosplenomegaly, normal bowel sounds Musculoskeletal: No cyanosis or clubbing, No pedal edema Neurologic: Alert and oriented x 3, No focal weakness, sensation grossly intact Psychiatric: Alert and oriented x 3, euthymic affect, no depressed affect Principal Diagnosis Acute on chronic respiratory failure with hypoxia, COPD exacerbation. Community-acquired pneumonia Discharge Exam Lying in bed comfortably Constitutional well developed, well nourished and + obese; not ill appearing Eyes PERRL, conjunctivae normal, anicteric sclerae ENMT external ear and nose normal, oropharynx normal Neck trachea midline, no thyromegaly Respiratory no respiratory distress Auscultation: + diminished lung sounds; no crackles and no wheezes Cardiovascular Rate/Rhythm: regular rate and regular rhythm; not tachycardic Heart Sounds: normal S1 and normal S2; no murmur Extremities: + edema (Trace edema bilaterally) Gastrointestinal (Abdomen) Inspection/Auscultation: normal bowel sounds; abdomen not distended Percussion/Palpation: abdomen soft; abdomen nontender Neurologic normal touch/pain/proprioception and moves all extremities Psychiatric A+Ox3, euthymic affect Lymphatic no cervical or axillary lymphadenopathy Discharge Data Allergies Allergy/AdvReac Type Severity Reaction Status Date / Time adhesive Allergy Intermediate RASH Verified 04/05/22 11:13 ibuprofen Allergy Intermediate RASH Verified 04/05/22 11:13 Iodinated Contrast Media Allergy Intermediate HIVES, Verified 04/05/22 11:13 EYES SWELL SHUT latex Allergy Intermediate RASH Verified 04/05/22 11:13 naproxen Allergy Intermediate SWELLING, Verified 04/05/22 11:13 RASH, HIVES Consultations 04/05/22 08:30 ED Decision to Admit Stat Hospital Course (1) Acute and chronic respiratory failure with hypoxia: Secondary to COPD exacerbation as below (2) Sepsis: (3) Community acquired pneumonia: This is a 76yo F with a PMH of COPD and VIRA requiring 2L NC O2 HS, HTN, history of TIA and other medical problems listed below who presents with persistent cough and SOB x 3 days found to have community-acquired pneumonia with acute on chronic respiratory failure with hypoxia. Productive cough and increased shortness of breath x3 days T 37.8 C, HR 98, WBC 16K, Lactate WNL, covid, RSV and flu PCR negative Meet sepsis criteria but nontoxic in appearance, initial lactate within normal limits CXR with bilateral opacities which could reflect pneumonia Antibiotic therapy with Rocephin and azithromycin -improved and cultures negative so [id number] to Augmentin Clinically better but he still has cough Will give cough suppressant and continue current antibiotic Much better and will be discharged home this afternoon to finish a complete 10 days course of antibiotic (4) COPD exacerbation: Given 60 mg IV Solu-Medrol in the ED. Continue steroid therapy with prednisone 40 mg daily x4 days Guaifenesin twice daily, Tessalon Perles as needed Initially hypoxic at 87-89%, continue supplemental oxygen 2 L nasal cannula for now, wean as tolerated She reports using home oxygen intermittently during daytime based on her new symptoms since covid 19 as above Would recommend outpatient PFTs when she is through this illness. Continuous oxygen needs per 2 step. Script placed in chart. Advised to ambulate and likely discharge tomorrow Has a two-step O2 saturation test and she qualifies for 2 L with ambulation (5) Hypertension: Chronic, stable, continue home BP meds (6) History of TIA (transient ischemic attack): cont Plavix for secondary prophylaxis per home regimen. DVT Ppx: SQ Lovenox Code status: FULL PCP: [employer] Dispo: to home when she is feeling better, likely tmrw Total Time Total Time Spent Total Time Spent (In Minutes): 35 minutes Discharge Plan Discharge Items Patient Disposition: Home - Self-Care Reason For Visit: PNEUMONIA Discharge Diagnosis: Acute on chronic respiratory failure with hypoxia, COPD exacerbation. Community-acquired pneumonia Condition on Discharge: Good Activity: Resume your previous activity Non-emergency contact: Primary Care Provider Call non-emergency contact if: you have any medication questions and your symptoms worsen Follow-up/Referrals: Yariel Cardoza MD [Primary Care Provider] - (Date & Time 04/16/2022 5:40 PM Provider Yariel Cardoza MD Department Family Medicine [facility] ) Diet: Heart Healthy Addtl Attending Provider Instructions: Please take precautions to avoid fall Finish the course of her antibiotic You can try [id number] cough medicine Please keep appointments with your healthcare providers You will need 2 L of oxygen via nasal cannula with ambulation and this will be on top of your usual night oxygen Pending Studies at Discharge: No Stand-Alone Forms: My [facility] [employer], an [employer], Smoking Cessation Medications and DC Order Prescriptions: New guaifenesin [Mucinex] 600 mg Tablet Extended Release 12hr 1,200 mg PO Q12 5 Days Qty: 20 RF: 0 amoxicillin 875 mg tablet 875 mg PO BID Qty: 10 RF: 0 Continued ipratropium-albuterol 0.5 mg-3 mg(2.5 mg base)/3 mL solution for nebulization 3 ml INH Q4H PRN (Reason: wheezing) Qty: 360 RF: 5 Anoro Ellipta 62.5-25 mcg/actuation blister with device 1 inh INHALATION QAM Qty: 3 RF: 1 atorvastatin 40 mg tablet 40 mg PO DAILY RF: 0 zinc gluconate 50 mg tablet 50 mg PO DAILY RF: 0 ascorbic acid (vitamin C) 1,000 mg tablet 1 g PO DAILY RF: 0 albuterol sulfate 90 mcg/actuation HFA aerosol inhaler 2 puff INHALATION Q6H PRN (Reason: Wheezing or shortness of breath) Qty: 18 RF: 3 dicyclomine 10 mg Capsule 10 mg PO Q4 PRN (Reason: Abdominal Discomfort) RF: 0 cholecalciferol (vitamin D3) [Vitamin D3] 2,000 unit Capsule 2,000 unit PO QAM RF: 0 atenolol 25 mg tablet 25 mg PO QAM RF: 0 potassium chloride 10 mEq tablet extended release 10 meq PO QAM RF: 0 meclizine 25 mg tablet 25 mg PO Q6 PRN (Reason: Dizziness Or Vertigo) RF: 0 omeprazole 20 mg capsule,delayed release(DR/EC) 20 mg PO BIDM RF: 0 hydrochlorothiazide 25 mg tablet 25 mg PO QAM RF: 0 clopidogrel 75 mg Tablet 75 mg PO QAM Qty: 30 RF: 1 tramadol 50 mg tablet 50 mg PO Q6H PRN (Reason: pain) Qty: 10 RF: 0 furosemide 40 mg tablet 40 mg PO DAILY RF: 0 losartan 50 mg Tablet 50 mg PO QAM RF: 0 polyethylene glycol 3350 [Miralax] 17 gram Powder In Packet 17 g PO BID Qty: 60 RF: 0 budesonide [Pulmicort] 0.5 mg/2 mL suspension for nebulization 0.5 mg INH BID RF: 0 Discharge Orders: Discharge Order (Routine); Ordered 04/10/22 Ordered By: Aldo Fernandez Admission Data Admit Date/Time: 04/05/22 08:53 Attending Provider: Aldo Fernandez Admit Provider: Shiela Shipley I. Primary Care Provider: Yariel Cardoza Other Providers: Shiela Shipley I. ; Kristin Anderson Other Interventions: Discharge Summary Assessment (RN) Last Done: 04/10/22 14:50
== END 2022-04-10 16:00 | disposition home or self-care (01) | DRG 871 ==
LOC: ED 06:04 → EDINP 08:53 → SUATTDRO 08:53 → 2W 11:27

== ENCOUNTER 2023-06-05 09:00 | Observation (INO) ==
[2023-06-05] MEDS ORDERED: MECLIZINE HCL 25 MG TAB PO STA (09:10)
--- NOTE | 2023-06-05 09:13 | Emergency Department Note ---
Impression & Plan Dizziness, Hypoxia ED Provider Note HISTORY OF PRESENT ILLNESS: Patient is a 77-year-old female presenting with dizziness. Patient reports that since last night she has had intermittent episodes of dizziness, described as the room spinning. Reports she has had vertigo in the past, but her last episode was over 2 years ago. She took a dose of meclizine last night at 2300 and had improvement in symptoms. However, when she woke up this morning to get out of bed, she felt very unsteady on her feet and if the world was spinning and she was falling to the right. She reports that she called for her who helped her into a chair. She denies any recent head injuries or chiropractic manipulation of her neck. Denies any chest pain or shortness of breath. Patient wears 2 L nasal cannula at nighttime, but per EMS she was hypoxic to 88% on room air. Patient denies any shortness of breath or fevers. Denies any recent cough. Denies any DVT or PE history. She is on Coumadin for history of CVA ROS: as above PHYSICAL EXAM: Constitutional: Patient appears in no acute distress. HENT: Head: Normocephalic and atraumatic. Eyes: EOMI, PERRL. No nystagmus elicited. Mouth/Throat: Mucous membranes moist. Neck: Trachea midline. Neck supple. Cardiovascular: RRR, No murmurs, rubs or gallops. Intact distal pulses. Pulmonary/Chest: No respiratory distress. Breath sounds clear and equal bilaterally. No wheezes or rales. Abdominal: Abdomen soft, no tenderness, rebound or guarding. Musculoskeletal: No edema, tenderness or deformity noted. Skin: Warm and dry. No rash, erythema, pallor or cyanosis Psychiatric: Appropriate mood and affect for situation. Neurological: Alert and keenly responsive. Facies symmetric. Able to raise eyebrows, close eyes, smile, puff mouth, stick out tongue, move tongue left and right and raise palate symmetrically. Able to shrug shoulders. PERRLA. SILT to forehead below eye and at jawline. Can hear soft nose bilaterally. Good finger to nose. Strength 5/5 in bilateral upper and lower extremities. SILT throughout bilateral upper and lower extremities. MDM: - Vitals signs stable - History obtained via patient. Patient presents with dizziness. Patient reports she had intermittent episodes of dizziness described as a room spinning since last night. She reports this feels similar to her prior episodes of ve rtigo. Denies any chest pain or shortness of breath. Denies any fever. Denies recent head injury or chiropractic manipulation of her neck. - Chronic conditions affecting care: COPD; HLD; HTN - Differential diagnoses include, but are not limited to: CVA; intracranial hemorrhage; peripheral vertigo; ACS; pneumonia; pneumothorax; electrolyte abnormality; PE - Order placed for continuous cardiac monitoring. At this time, monitor showed rate of 63 bpm with normal sinus rhythm, per my interpretation. - External medical records reviewed. EMS run sheet reviewed. Patient was vitally stable in route other than her hypoxia on room air. No medications were given prehospital. - EKG reviewed by myself showed normal sinus rhythm. Rate 72 bpm. QTc 416. No acute ischemic changes - Laboratory workup interpreted by myself showed normal WBC; stable electrolytes; normal troponin - CT head wo contrast negative for acute intracranial pathology - UA negative for infection - CXR negative for pneumonia, per my interpretation - Patient given 25 mg PO meclizine in ER. On reassessment, reports dizziness has improved. - Patient was ambulated in the emergency department prior to discharge, but her saturations dropped to 85% on room air and she was feeling short of breath and tachypnea. She wears 2 L nasal cannula at nighttime only and does not normally wear it during the day. She was placed back on 2 L nasal cannula with improvement in her saturations. - Discussion was had with older adult social work specialist about patient's case and need for admission - Hospitalist consulted for admission - [facility] for further evaluation and management. ASSESSMENT AND PLAN: Diagnosis: dizziness; hypoxia with exertion Plan: admit Past Med/Surg History Medical History Anxiety and depression Chronic obstructive pulmonary disease nebulizer/inhalers daily and prn///2L n/c at HS/PRN Dysconjugate gaze Dyslipidemia Fibromyalgia GERD (gastroesophageal reflux disease) History of COVID-19 diagnosed 08/2020 @ [facility]--cough, headache, fatigue--no issues now History of diverticulitis History of intestinal obstruction Hypertension Hypomagnesemia IBS (irritable bowel syndrome) Kidney stones HX Multiple pulmonary nodules On anticoagulant therapy plavix daily On home oxygen therapy 2L N/C at hs and prn Osteoarthritis Sleep apnea O2 2L HS Transient ischemic attack (TIA) (~09/18/20) per pt had mini stroke and started on plavix daily Urge incontinence of urine Vertigo Surgical History H/O esophagogastroduodenoscopy "repair zenkers diverticulum" History of bilateral breast reduction surgery History of bunionectomy RT History of cataract surgery RT/LEFT History of cholecystectomy Lap cholecystectomy: 06/04/16: Grade view 2, MAC#3, ETT [address] [facility] History of colonoscopy History of cystoscopy (~07/24/19) History of dilatation and curettage History of removal of cyst left hand History of right breast biopsy x2--benign History of surgical removal of right nipple History of tonsillectomy and adenoidectomy History of tooth extraction all teeth History of total hysterectomy History of ureter stent Status post biopsy of thyroid gland benign Family History Brother Family history of diabetes mellitus Other No family history of adverse response to anesthesia Denies family history of Diabetes Crohn's disease Colorectal cancer Ulcerative colitis Stroke Social History Smoking Status: Former smoker Tobacco Type: Cigarettes Age Started Using Tobacco: 8; Age Quit Using Tobacco: 49; packs per day: 1.5; Second Hand Exposure: No; Do You Dip or Chew Tobacco: No; Hx Alcohol Use: No Hx Substance Use: No Preferred Language: Burmese Communication Ability: Effective Visual Impairment: No Limitations 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 Her daughter and 1 grandson live there current occupational status: retired How many Children do You have: 3 Feels Safe at Home: Yes Diet: regular Dental Care, Regularly: No Physical Activity Frequency: Does not Exercise Seatbelt Use: sometimes Sunscreen Use: Yes Assistive Devices: Cane, Denture - Upper, Denture - Lower, Nebulizer, Oxygen - at Night and Walker Allergies Allergies Allergy/AdvReac Type Severity Reaction Status Date / Time adhesive Allergy Intermediate RASH Verified 05/07/23 08:32 ibuprofen Allergy Intermediate RASH Verified 05/07/23 08:32 Iodinated Contrast Media Allergy Intermediate HIVES, Verified 05/07/23 08:32 EYES SWELL SHUT latex Allergy Intermediate RASH Verified 05/07/23 08:32 naproxen Allergy Intermediate SWELLING, Verified 05/07/23 08:32 RASH, HIVES Home Meds Home Medications Medication Instructions Recorded Confirmed atenolol 25 mg tablet 25 mg PO QAM 08/17/18 06/05/23 cholecalciferol (vitamin D3) 50 2,000 unit PO QAM 06/09/19 06/05/23 mcg (2,000 unit) capsule (Vitamin D3) benzonatate 100 mg capsule 100 mg PO TID PRN Cough 06/19/22 06/05/23 nystatin 100,000 unit/gram topical 1 applic topical TID PRN Other 06/19/22 06/05/23 powder dextromethorphan-guaifenesin 10 1 tab-cap PO .Q4-6H PRN Cough 08/04/22 06/05/23 mg-200 mg capsule (Coricidin HBP Chest Congestion-Cough) polyethylene glycol 3350 17 gram 17 g PO DAILY 02/20/23 06/05/23 oral powder packet (Miralax) pantoprazole 40 mg tablet,delayed 40 mg PO BID 05/07/23 06/05/23 release Previous Rx's Medication Instructions Recorded potassium chloride 10 mEq 10 meq PO QAM #90 tabs 03/19/23 tablet,extended release magnesium oxide 500 mg tablet 500 mg PO BID #180 tabs 04/08/23 dicyclomine 10 mg capsule 10 mg PO QID PRN ABD PAIN #360 caps 04/10/23 albuterol sulfate 90 mcg/actuation 2 puff inhalation Q4 PRN Wheezing 04/17/23 aerosol inhaler or shortness of breath #8.5 grams budesonide 0.5 mg/2 mL suspension 0.5 mg (2 mL) inhalation BID #360 04/17/23 for nebulization (Pulmicort) mL ipratropium 0.5 mg-albuterol 3 mg 3 ml inhalation Q4H PRN 04/17/23 (2.5 mg base)/3 mL nebulization cough,sob,wheezing #360 mL soln umeclidinium 62.5 mcg-vilanterol 1 inh inhalation QAM #3 Inhalers 04/17/23 25 mcg/actuation powdr for inhalation (Anoro Ellipta) meclizine 25 mg tablet 25 mg PO Q6 PRN Dizziness Or 04/19/23 Vertigo #10 tabs atorvastatin 40 mg tablet 40 mg PO .COMPLEX #48 tabs 04/26/23 clopidogrel 75 mg tablet 75 mg PO QAM #90 tabs 04/29/23 ondansetron 4 mg disintegrating 4 mg PO Q6H PRN nausea and 04/29/23 tablet vomiting #14 tabs amitriptyline 25 mg tablet 25 mg PO HS #90 tabs 05/02/23 magnesium citrate 300 ml PO DAILY PRN constipation 05/02/23 #296 mL tamsulosin 0.4 mg capsule (Flomax) 0.4 mg PO DAILY #7 caps 05/07/23 furosemide 40 mg tablet 40 mg PO DAILY PRN swelling or 05/09/23 fluid accumulation #90 tabs hydrochlorothiazide 25 mg tablet 25 mg PO QAM #90 tabs 05/17/23 losartan 50 mg tablet 50 mg PO QAM #90 tabs 05/27/23 Results & Data (ED) Vital Signs Vital Signs - 24 hr 06/05/23 09:10 06/05/23 09:00 06/05/23 09:00 Temperature 36.8 C Temperature Source Oral Pulse Rate - Lying Pulse Rate - Sitting Pulse Rate - Standing Pulse Rate 73 74 74 Pulse Rate [Apical] Pulse Rate from SpO2 Sensor Pulse Rhythm Regular Regular Pulse Strength Normal Respiratory Rate 19 19 Respiratory Effort / Characteristics Non-Labored Spontaneous Respiratory Depth Normal Respiratory Pattern Regular Blood Pressure - Lying Blood Pressure - Sitting Blood Pressure- Standing Blood Pressure 165/97 H Blood Pressure [Right Arm] Blood Pressure Mean 119 Blood Pressure Mean [Right Arm] Blood Pressure Position Lying Pulse Oximetry 98 98 Oxygen Delivery Method Nasal Cannula Nasal Cannula Oxygen Flow Rate 2 2 Sepsis Recent Fever Within 48 Hours No Sepsis New/Unexplained Change in Mental Status N/A Sepsis Action Taken by Nursing No Action Required 06/05/23 09:11 06/05/23 10:11 06/05/23 10:11 Temperature Temperature Source Pulse Rate - Lying Pulse Rate - Sitting Pulse Rate - Standing Pulse Rate 68 Pulse Rate [Apical] Pulse Rate from SpO2 Sensor Pulse Rhythm Pulse Strength Respiratory Rate 25 H Respiratory Effort / Characteristics Respiratory Depth Respiratory Pattern Blood Pressure - Lying Blood Pressure - Sitting Blood Pressure- Standing Blood Pressure 123/83 Blood Pressure [Right Arm] Blood Pressure Mean 103 Blood Pressure Mean [Right Arm] Blood Pressure Position Pulse Oximetry Oxygen Delivery Method Nasal Cannula Oxygen Flow Rate Sepsis Recent Fever Within 48 Hours Sepsis New/Unexplained Change in Mental Status Sepsis Action Taken by Nursing 06/05/23 10:31 06/05/23 10:31 06/05/23 10:55 Temperature Temperature Source Pulse Rate - Lying Pulse Rate - Sitting Pulse Rate - Standing Pulse Rate 68 63 Pulse Rate [Apical] Pulse Rate from SpO2 Sensor 62 Pulse Rhythm Pulse Strength Respiratory Rate 20 23 Respiratory Effort / Characteristics Respiratory Depth Respiratory Pattern Blood Pressure - Lying Blood Pressure - Sitting Blood Pressure- Standing Blood Pressure 123/98 Blood Pressure [Right Arm] Blood Pressure Mean 112 Blood Pressure Mean [Right Arm] Blood Pressure Position Pulse Oximetry 96 Oxygen Delivery Method Nasal Cannula Oxygen Flow Rate 2 Sepsis Recent Fever Within 48 Hours Sepsis New/Unexplained Change in Mental Status Sepsis Action Taken by Nursing 06/05/23 13:24 06/05/23 14:35 Temperature Temperature Source Pulse Rate - Lying 63 Pulse Rate - Sitting 68 Pulse Rate - Standing 69 Pulse Rate Pulse Rate [Apical] 57 L Pulse Rate from SpO2 Sensor Pulse Rhythm Pulse Strength Respiratory Rate 18 Respiratory Effort / Characteristics Respiratory Depth Respiratory Pattern Blood Pressure - Lying 146/92 H Blood Pressure - Sitting 145/101 H Blood Pressure- Standing 148/87 H Blood Pressure Blood Pressure [Right Arm] 133/96 Blood Pressure Mean Blood Pressure Mean [Right Arm] 108 Blood Pressure Position Pulse Oximetry 96 Oxygen Delivery Method Nasal Cannula Oxygen Flow Rate 3 Sepsis Recent Fever Within 48 Hours Sepsis New/Unexplained Change in Mental Status Sepsis Action Taken by Nursing Laboratory Data 06/05/23 09:15 06/05/23 09:15 Lab Results 06/05/23 06/05/23 06/05/23 Range/Units 09:15 09:15 11:08 WBC 6.68 (4.8-10.8) K/ul RBC 4.79 (4.20-5.40) M/uL Hgb 14.2 (12.0-16.0) g/dl Hct 45.4 (37.0-47.0) % MCV 94.8 (80.0-100.0) fL MCH 29.6 (25.0-34.0) pg MCHC 31.3 L (32.0-36.0) g/dL RDW Std Deviation 50.2 H (36.4-46.3) fL RDW Coeff of Enoc 14.2 (11.5-14.5) % Plt Count 165 (130-400) K/uL MPV 9.4 (9.4-12.4) fL Immature Gran % (Auto) 0.7 % Neut % (Auto) 75.8 % Lymph % (Auto) 13.3 % [place] % (Auto) 8.7 % Eos % (Auto) 1.2 % Baso % (Auto) 0.3 % Neut # (Auto) 5.06 (1.40-6.50) K/uL Lymph # (Auto) 0.89 L (1.20-3.40) K/uL [place] # (Auto) 0.58 (0.11-0.59) K/uL Eos # (Auto) 0.08 (0.00-0.50) K/uL Baso # (Auto) 0.02 (0.00-0.20) K/uL Immature Gran # (Auto) 0.05 (0.01-0.20) K/uL Sodium 139 (136-145) mmol/L Potassium 4.1 (3.5-5.1) mmol/L Chloride 102 (98-107) mmol/L Carbon Dioxide 31 (21-32) mmol/L Anion Gap 6 (3-11) BUN 19 (6-23) mg/dl Creatinine 0.78 (0.6-1.2) mg/dl Est Cr Clr Drug Dosing 61.2 ml/min Est GFR ( Amer) 83.8 ml/min Est GFR (Non-Af Amer) 72.3 ml/min BUN/Creatinine Ratio 24.4 H (10-20) Glucose 137 H (70-99(Fasting)) mg/dl Calcium 9.5 (8.6-10.3) mg/dl Total Bilirubin 0.6 (0.2-1.0) mg/dl AST 20 (13-39) U/L ALT 22 (7-52) U/L Alkaline Phosphatase 107 H (34-104) U/L Troponin I High Sens 6.0 (0-14) pg/ml Total Protein 6.9 (6.0-8.3) gm/dl Albumin 4.1 (3.4-5.0) gm/dl Globulin 2.8 (2.5-4.0) gm/dl Albumin/Globulin Ratio 1.5 (0.9-2) Urine Color Yellow Urine Appearance Clear (Clear) Urine pH 7.5 (4.5-7.5) Ur Specific [place] 1.017 (1.000-1.030) Urine Protein Negative (Negative) Urine Glucose (UA) Negative (Negative) Urine Ketones Negative (Negative) Urine Blood Negative (Negative) Urine Nitrite Negative (Negative) Urine Bilirubin Negative (Negative) Urine Urobilinogen Negative (Negative) Ur Leukocyte Esterase Negative (Negative) Administered Medications Discontinued Medications Diphenhydramine HCl (Diphenhydramine 50 Mg/Ml Vial) 25 mg IV NOW STA Stop: 06/05/23 13:13 Last Admin: 06/05/23 13:25 Dose: 25 mg Documented By: WILBER Ioversol (Ioversol 350 Mg 125ml Prefilled Syringe) 118 ml IV ONCE ONE Stop: 06/05/23 13:44 Last Admin: 06/05/23 13:43 Dose: 118 ml Documented By: KIKA Meclizine HCl (Meclizine Hcl 25 Mg Tab) 25 mg PO NOW STA Stop: 06/05/23 09:11 Last Admin: 06/05/23 10:10 Dose: 25 mg Documented By: ANDREA Methylprednisolone (Methylprednisolone 125 Mg/2 Ml Vial) 125 mg IV NOW STA Stop: 06/05/23 13:13 Last Admin: 06/05/23 13:25 Dose: 125 mg Documented By: WILBER Imaging Data Radiologist's Impression: Chest X-Ray 06/05/23 09:11 SINGLE VIEW CHEST CLINICAL HISTORY: Dizziness. FINDINGS: An AP, portable, upright chest radiograph is compared to study dated 02/01/2023 and correlated with chest CT dated 08/04/2022. The heart is mildly enlarged noting atherosclerotic calcification of the thoracic aorta. The pulmonary vasculature is noncontrast. Emphysema and chronic interstitial thickening is similar to previous. Foci of parenchymal scarring are seen throughout both lungs. No airspace consolidation or large pleural effusion is identified. No pneumothorax is seen. The skeletal structures are osteopenic. There are chronic/healed right-sided rib fractures. IMPRESSION: Cardiomegaly and emphysema with no acute cardiopulmonary abnormality identified. ACT 112: Negative or not required by law. Electronically signed by: Jose D Cruz M.D. 06/05/2023 9:[address] 06/05/23 09:11 CT head/brain wo con CLINICAL HISTORY: dizziness Technique: Contiguous axial CT images of the head were acquired from the base of the skull to the vertex without intravenous contrast administration. Images were viewed in brain, subdural and bone windows. Automated dose lowering techniques and/or adjustment according to patient size were utilized for this exam. Comparison: Comparison is made to CT head 06/19/2022 Findings: Areas of decreased attenuation are present in the periventricular and subcortical white matter bilaterally consistent with small vessel ischemic disease. Generalized cerebral atrophy with commensurate enlargement of the ventricles, sulci, and cisterns is also present. There is no acute intracranial hemorrhage or evidence of acute territorial infarction. No shift of the midline structures, mass effect, or extra-axial abnormalities are shown. Atherosclerotic calcifications are present in the intracranial segments of the internal carotid arteries. Imaged portions of the paranasal sinuses and mastoid air cells are clear. The orbits appear normal. There are no acute fractures of the calvaria or scalp swelling. Impression: No acute intracranial hemorrhage, no evidence of acute territorial infarction or other acute intracranial disease process. ACT 112: Negative or not required by law. Electronically signed by: He Paul M.D. 06/05/2023 10:08 AM Chest CTA 06/05/23 13:12 CT ANGIOGRAM OF THE CHEST CLINICAL HISTORY: Dyspnea COMPARISON STUDY: Chest x-ray dated 06/05/2023. Chest CT dated 08/04/2022. TECHNIQUE: Following the IV administration of 118 cc of Optiray 320, CT angiogram of the chest was performed from the upper abdomen to the thoracic inlet utilizing the pulmonary embolus protocol. Images are reviewed in the axial, sagittal, and coronal planes. 3-D MIPS images are created and assessed. IV contrast was administered without complication. A dose lowering technique was utilized adhering to the principles of ALARA. CT DOSE: 917.26 mGy.cm FINDINGS: Thyroid: Imaged portions of the thyroid gland are normal in size and attenuation. Thoracic aorta: There is atherosclerotic calcification of the thoracic aorta, which is normal in caliber and demonstrates standard 3-vessel arch anatomy. No dissection is seen. Pulmonary vasculature: The main pulmonary arteries are dilated suggesting pulmonary artery hypertension. There are no filling defects identified in main, lobar, or segmental pulmonary branches to suggest pulmonary embolus. Evaluation of the distal segmental and subsegmental branches is degraded by motion artifact. Heart: The heart is mildly enlarged and without pericardial effusion. Lungs and pleural spaces: Evaluation of the lung parenchyma is significantly degraded by motion artifact. There is mild emphysematous change. No airspace consolidation or pleural effusion is identified. The trachea and central airways are clear. Foci of parenchymal scarring are seen throughout both lungs. Mediastinum: There is no mediastinal lymphadenopathy. Patricia: Clear. Axillae: There is no axillary lymphadenopathy. Upper abdomen: A 2.7 cm cyst is again seen in the left lobe of the liver. There is a small hiatal hernia. 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 Skeletal structures: The skeletal structures are osteopenic. Degenerative change of hyperkyphosis is noted in the thoracic spine. There is hemangioma within the body of L1. No lytic or blastic bony lesions are seen. IMPRESSION: 1. There is no evidence of pulmonary embolus in the main, lobar, or segmental pulmonary arteries. 2. Cardiomegaly and emphysema. 3. No airspace consolidation or pleural effusion is identified. 4. Additional findings as above. ACT 112: Negative or not required by law. Electronically signed by: Jose D Cruz M.D. 06/05/2023 2:10 PM Discharge Plan Visit Data Chief Complaint: Illness Stated Complaint: DIZZINESS, NAUSEA ED Provider: Rosio Parada Discharge Problem: Dizziness, Hypoxia Forms Stand Alone Forms: [facility] Prescriptions Prescriptions: No Action potassium chloride 10 mEq tablet extended release 10 meq PO QAM Qty: 90 1RF magnesium oxide 500 mg tablet 500 mg PO BID Qty: 180 3RF dicyclomine 10 mg capsule 10 mg PO QID PRN (Reason: ABD PAIN) Qty: 360 3RF meclizine 25 mg tablet 25 mg PO Q6 PRN (Reason: Dizziness Or Vertigo) Qty: 10 1RF atorvastatin 40 mg tablet 40 mg PO .COMPLEX Qty: 48 3RF Rx Instructions: 40 mg orally every other day; clopidogrel 75 mg tablet 75 mg PO QAM Qty: 90 3RF amitriptyline 25 mg tablet 25 mg PO HS Qty: 90 3RF furosemide 40 mg tablet 40 mg PO DAILY PRN (Reason: swelling or fluid accumulation) Qty: 90 3RF hydrochlorothiazide 25 mg tablet 25 mg PO QAM Qty: 90 1RF losartan 50 mg tablet 50 mg PO QAM Qty: 90 1RF magnesium citrate Solution 300 ml PO DAILY PRN (Reason: constipation) Qty: 296 0RF albuterol sulfate 90 mcg/actuation HFA aerosol inhaler 2 puff INHALATION Q4 PRN (Reason: Wheezing or shortness of breath) Qty: 8.5 3RF ipratropium-albuterol 0.5 mg-3 mg(2.5 mg base)/3 mL solution for nebulization 3 ml INH Q4H PRN (Reason: cough,sob,wheezing) Qty: 360 6RF Anoro Ellipta 62.5-25 mcg/actuation blister with device 1 inh INHALATION QAM Qty: 3 4RF budesonide [Pulmicort] 0.5 mg/2 mL suspension for nebulization 0.5 mg INH BID Qty: 360 4RF cholecalciferol (vitamin D3) [Vitamin D3] 2,000 unit Capsule 2,000 unit PO QAM atenolol 25 mg tablet 25 mg PO QAM Coricidin HBP Chest Ren-Cough 10-200 mg Capsule 1 tab-cap PO .Q4-6H PRN (Reason: Cough) ondansetron 4 mg tablet,disintegrating 4 mg PO Q6H PRN (Reason: nausea and vomiting) Qty: 14 0RF pantoprazole 40 mg Tablet,Delayed Release (Dr/Ec) 40 mg PO BID tamsulosin [Flomax] 0.4 mg capsule 0.4 mg PO DAILY Qty: 7 0RF benzonatate 100 mg capsule 100 mg PO TID PRN (Reason: Cough) nystatin 100,000 unit/gram powder 1 applic TOPICAL TID PRN (Reason: Other) polyethylene glycol 3350 [Miralax] 17 gram powder in packet 17 g PO DAILY Referrals Referrals: Lala Baum MD [Primary Care Provider] -
--- NOTE | 2023-06-05 09:48 | XRay Report ---
SINGLE VIEW CHEST CLINICAL HISTORY: Dizziness. FINDINGS: An AP, portable, upright chest radiograph is compared to study dated 02/01/2023 and correlat ed with chest CT dated 08/04/2022. The heart is mildly enlarged noting atherosclerotic calcification of the thoracic aorta. The pulmonary vasculature is noncontrast. Emphysema and chronic interstitial t hickening is similar to previous. Foci of parenchymal scarring are seen throughout both lungs. No air space consolidation or large pleural effusion is identified. No pneumothorax is seen. The skeletal st ructures are osteopenic. There are chronic/healed right-sided rib fractures. IMPRESSION: Cardiomegaly and emphysema with no acute cardiopulmonary abnormality identified. ACT 112: Negative or not required by law. Electronically signed by: Jose D Cruz M.D. 06/05/2023 9:46 AM
[2023-06-05 09:56] LABS: Basophils # (auto) 0.02 K/uL (0.00-0.20); Basophils % (auto) 0.3 %; Eosinophils # (auto) 0.08 K/uL (0.00-0.50); Eosinophils % (auto) 1.2 %; Hematocrit (blood only) 45.4 % (37.0-47.0); Hemoglobin 14.2 g/dl (12.0-16.0); Immature Granulocytes # (auto) 0.05 K/uL (0.01-0.20); Immature Granulocytes % (auto) 0.7 %; Lymphocytes # (auto) 0.89 K/uL (1.20-3.40); Lymphocytes % (auto) 13.3 %; Mean Corpuscular Hemoglobin 29.6 pg (25.0-34.0); Mean Corpuscular Hgb Conc 31.3 g/dL (32.0-36.0); Mean Corpuscular Volume 94.8 fL (80.0-100.0); Mean Platelet Volume 9.4 fL (9.4-12.4); Monocytes # (auto) 0.58 K/uL (0.11-0.59); Monocytes % (auto) 8.7 %; Neutrophils # (auto) 5.06 K/uL (1.40-6.50); Neutrophils % (auto) 75.8 %; Platelet Count 165 K/uL (130-400); RDW Coefficient of Variation 14.2 % (11.5-14.5); RDW Standard Deviation 50.2 fL (36.4-46.3); Red Blood Count 4.79 M/uL (4.20-5.40); White Blood Count 6.68 K/ul (4.8-10.8)
--- NOTE | 2023-06-05 10:11 | CT Scan Report ---
CT head/brain wo con CLINICAL HISTORY: dizziness Technique: Contiguous axial CT images of the head were acquired from the base of the skull to the yung jj without intravenous contrast administration. Images were viewed in brain, subdural and bone [facility] . Automated dose lowering techniques and/or adjustment according to patient size were utilized for this exam. Comparison: Comparison is made to CT head 06/19/2022 Findings: Areas of decreased attenuation are present in the periventricular and subcortical white matter bilate rally consistent with small vessel ischemic disease. Generalized cerebral atrophy with commensurate e nlargement of the ventricles, sulci, and cisterns is also present. There is no acute intracranial hem orrhage or evidence of acute territorial infarction. No shift of the midline structures, mass effect, or extra-axial abnormalities are shown. Atherosclerotic calcifications are present in the intracran ial segments of the internal carotid arteries. Imaged portions of the paranasal sinuses and mastoid air cells are clear. The orbits appear normal. There are no acute fractures of the calvaria or scalp swelling. Impression: No acute intracranial hemorrhage, no evidence of acute territorial infarction or other acute intracra nial disease process. ACT 112: Negative or not required by law. Electronically signed by: He Paul M.D. 06/05/2023 10:08 AM
[2023-06-05 10:23] LABS: Albumin Globulin Ratio 1.5 (0.9-2); Albumin Level 4.1 gm/dl (3.4-5.0); BUN Creatinine Ratio 24.4 (10-20); Bilirubin,Total 0.6 mg/dl (0.2-1.0); Calcium 9.5 mg/dl (8.6-10.3); Creatinine Clr Calc Pharmacy 61.2 ml/min; Est GFR (African American) 83.8 ml/min; Est GFR (Non-African American) 72.3 ml/min; Globulin 2.8 gm/dl (2.5-4.0); Potassium 4.1 mmol/L (3.5-5.1); Total Protein 6.9 gm/dl (6.0-8.3)
[2023-06-05 11:19] LABS: Appearance Urine Clear (Clear); Bilirubin Urine Negative (Negative); Blood Urine Negative (Negative); Color Urine Yellow; Glucose Urine UA Negative (Negative); Ketones Urine Negative (Negative); Leukocyte Esterase Urine Negative (Negative); Nitrite Urine Negative (Negative); Protein Urine Negative (Negative); Specific Gravity Urine 1.017 (1.000-1.030); Urobilinogen Urine Negative (Negative); pH Urine 7.5 (4.5-7.5)
[2023-06-05] MEDS ORDERED: diphenhydrAMINE 50 MG/ML VIAL IV STA (13:12)
[2023-06-05] MEDS ORDERED: methylPREDNISolone 125 MG/2 ML VIAL IV STA (13:12)
[2023-06-05] MEDS ORDERED: IOVERSOL 350 MG 125mL Prefilled Syringe IV ONE (13:43)
--- NOTE | 2023-06-05 14:12 | CT Scan Report ---
CT ANGIOGRAM OF THE CHEST CLINICAL HISTORY: Dyspnea COMPARISON STUDY: Chest x-ray dated 06/05/2023. Chest CT dated 08/04/2022. TECHNIQUE: Following the IV administration of 118 cc of Optiray 320, CT angiogram of the chest was pe rformed from the upper abdomen to the thoracic inlet utilizing the pulmonary embolus protocol. Images are reviewed in the axial, sagittal, and coronal planes. 3-D MIPS images are created and assessed. I V contrast was administered without complication. A dose lowering technique was utilized adhering to the principles of ALARA. CT DOSE: 917.26 mGy.cm FINDINGS: Thyroid: Imaged portions of the thyroid gland are normal in size and attenuation. Thoracic aorta: There is atherosclerotic calcification of the thoracic aorta, which is normal in tylor aditya and demonstrates standard 3-vessel arch anatomy. No dissection is seen. Pulmonary vasculature: The main pulmonary arteries are dilated suggesting pulmonary artery hypertensi on. There are no filling defects identified in main, lobar, or segmental pulmonary branches to sugges t pulmonary embolus. Evaluation of the distal segmental and subsegmental branches is degraded by debi on artifact. Heart: The heart is mildly enlarged and without pericardial effusion. Lungs and pleural spaces: Evaluation of the lung parenchyma is significantly degraded by motion artif act. There is mild emphysematous change. No airspace consolidation or pleural effusion is identified. The trachea and central airways are clear. Foci of parenchymal scarring are seen throughout both mona gs. Mediastinum: There is no mediastinal lymphadenopathy. Patricia: Clear. Axillae: There is no axillary lymphadenopathy. Upper abdomen: A 2.7 cm cyst is again seen in the left lobe of the liver. There is a small hiatal her liza. 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 Skeletal structures: The skeletal structures are osteopenic. Degenerative change of hyperkyphosis is noted in the thoracic spine. There is hemangioma within the body of L1. No lytic or blastic bony lesi ons are seen. IMPRESSION: 1. There is no evidence of pulmonary embolus in the main, lobar, or segmental pulmonary arteries. 2. Cardiomegaly and emphysema. 3. No airspace consolidation or pleural effusion is identified. 4. Additional findings as above. ACT 112: Negative or not required by law. Electronically signed by: Jose D Cruz M.D. 06/05/2023 2:10 PM
--- NOTE | 2023-06-05 14:33 | History & Physical Report ---
Date of Service June 05, 2023 Assessment & Plan (1) Dizziness: Plan: Patient presents with dizziness that presents and in reviewing sounds consistent with vertigo, for which she has a history of and has meclizine at home, however she did have another eppisode when being taken from stretcher to CT scanning table that was different in her report. This is likely multifactorial to include DDX: volume status, orthostasis, arrhythmia or other. - Trend HR on medical telemetry to evaluate for arrhythmia - Orthostasis in EMD - 146/92 63; S: 145/101 68, St: 148/87 69 - Hold Lasix, consider lowering HCTZ dose, Continue Atenolol, Continue Losartan - LR x1 liter overnight (2) Vertigo: Plan: Symptoms were short lived- and presents consistent with a vertiginousness event, she is without any other focal deficits and was able to ambulate to the bathroom in the EMD- her gait was not ataxic and balance was normal so doubt any further imaging would be beneficial as concern for CVA at this time is low. - PT/OT evaluation -rehab vs. 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 (4) IBS (irritable bowel syndrome): Plan: Patient with history of IBS- she has been followed by GI in the past for regurgitation of food particles - Contionue bentyl- see above abnormal CT scan of abdomen (5) GERD (gastroesophageal reflux disease): Plan: Continue PPI (6) Obstructive sleep apnea of adult: Plan: Continue oxygen at night (7) Chronic respiratory failure with hypoxia: Plan: Continue with home inhalers and oxygen at night and as needed - not an acute exacerbation or worsening of sytmpoms noted by review of previous 6min walk test and home oxygen use as 1L NC (8) Hypertension: Plan: - As above History of Present Illness Primary Care Provider: Lala Baum MD 77 YOF with medical history of: HTN, VIRA, COPD, home oxygen use, kidney stones, chronic respiratory failure, vocal cord nodules, GERD. Patient comes to the EMD today secondary to being dizzy. Patient states that yesterday evening and this morning she had dizziness that was accompanied with room spinning, cold sweaty feeling, and nausea without vomiting. She also noted this morning she felt off balance to her right. This has resolved since treatment in the EMD. However, the patient still felt dizzy when she changed position on her way to the CT scanner. This was more lightheadedness and was without room spinning or cold sweating. The patient was sent to the CT scanner in the EMD secondary to hypoxia to 86%- she is on oxygen at home for exertion and while sleeping- for which she reports she hardly uses except at night. Her CTA was negative for PE or acute pulmonary process, but notes emphysema, liver cyst, and celiac trunk 1.2 cm in diameter. Patient notes she is on 3 blood pressure medications at home, but does not take her BP regularly. Patient will be observed overnight for trending of her vital signs, monitoring for arrhythmia, and gentle IV hydration. Will obtain orthostatics. CODE: FULL Allergies Allergy/AdvReac Type Severity Reaction Status Date / Time adhesive Allergy Intermediate RASH Verified 05/07/23 08:32 ibuprofen Allergy Intermediate RASH Verified 05/07/23 08:32 Iodinated Contrast Media Allergy Intermediate HIVES, Verified 05/07/23 08:32 EYES SWELL SHUT latex Allergy Intermediate RASH Verified 05/07/23 08:32 naproxen Allergy Intermediate SWELLING, Verified 05/07/23 08:32 RASH, HIVES Home Medications Medication Instructions Recorded Confirmed Type atenolol 25 mg tablet 25 mg PO QAM 08/17/18 06/05/23 History cholecalciferol (vitamin D3) 50 2,000 unit PO QAM 06/09/19 06/05/23 History mcg (2,000 unit) capsule (Vitamin D3) benzonatate 100 mg capsule 100 mg PO TID PRN Cough 06/19/22 06/05/23 History nystatin 100,000 unit/gram topical 1 applic topical TID PRN Other 06/19/22 06/05/23 History powder dextromethorphan-guaifenesin 10 1 tab-cap PO .Q4-6H PRN Cough 08/04/22 06/05/23 History mg-200 mg capsule (Coricidin HBP Chest Congestion-Cough) polyethylene glycol 3350 17 gram 17 g PO DAILY 02/20/23 06/05/23 History oral powder packet (Miralax) potassium chloride 10 mEq 10 meq PO QAM #90 tabs 03/19/23 06/05/23 Rx tablet,extended release magnesium oxide 500 mg tablet 500 mg PO BID #180 tabs 04/08/23 06/05/23 Rx dicyclomine 10 mg capsule 10 mg PO QID PRN ABD PAIN #360 caps 04/10/23 06/05/23 Rx albuterol sulfate 90 mcg/actuation 2 puff inhalation Q4 PRN Wheezing 04/17/23 06/05/23 Rx aerosol inhaler or shortness of breath #8.5 grams budesonide 0.5 mg/2 mL suspension 0.5 mg (2 mL) inhalation BID #360 04/17/23 06/05/23 Rx for nebulization (Pulmicort) mL ipratropium 0.5 mg-albuterol 3 mg 3 ml inhalation Q4H PRN 04/17/23 06/05/23 Rx (2.5 mg base)/3 mL nebulization cough,sob,wheezing #360 mL soln umeclidinium 62.5 mcg-vilanterol 1 inh inhalation QAM #3 Inhalers 04/17/23 06/05/23 Rx 25 mcg/actuation powdr for inhalation (Anoro Ellipta) meclizine 25 mg tablet 25 mg PO Q6 PRN Dizziness Or 04/19/23 06/05/23 Rx Vertigo #10 tabs atorvastatin 40 mg tablet 40 mg PO .COMPLEX #48 tabs 04/26/23 06/05/23 Rx clopidogrel 75 mg tablet 75 mg PO QAM #90 tabs 04/29/23 06/05/23 Rx ondansetron 4 mg disintegrating 4 mg PO Q6H PRN nausea and 04/29/23 06/05/23 Rx tablet vomiting #14 tabs amitriptyline 25 mg tablet 25 mg PO HS #90 tabs 05/02/23 06/05/23 Rx magnesium citrate 300 ml PO DAILY PRN constipation 05/02/23 06/05/23 Rx #296 mL pantoprazole 40 mg tablet,delayed 40 mg PO BID 05/07/23 06/05/23 History release tamsulosin 0.4 mg capsule (Flomax) 0.4 mg PO DAILY #7 caps 05/07/23 06/05/23 Rx furosemide 40 mg tablet 40 mg PO DAILY PRN swelling or 05/09/23 06/05/23 Rx fluid accumulation #90 tabs hydrochlorothiazide 25 mg tablet 25 mg PO QAM #90 tabs 05/17/23 06/05/23 Rx losartan 50 mg tablet 50 mg PO QAM #90 tabs 05/27/23 06/05/23 Rx Past Med/Surg History Medical History (Updated 06/05/23 @ 15:07 by SAMIR Gustafson) Anxiety and depression Chronic obstructive pulmonary disease nebulizer/inhalers daily and prn///2L n/c at HS/PRN Dysconjugate gaze Dyslipidemia Fibromyalgia GERD (gastroesophageal reflux disease) History of COVID-19 diagnosed 08/2020 @ [facility] [place]--cough, headache, fatigue--no issues now History of diverticulitis History of intestinal obstruction Hypertension Hypomagnesemia IBS (irritable bowel syndrome) Kidney stones HX Multiple pulmonary nodules On anticoagulant therapy plavix daily On home oxygen therapy 2L N/C at hs and prn Osteoarthritis Sleep apnea O2 2L HS Transient ischemic attack (TIA) (~09/18/20) per pt had mini stroke and started on plavix daily Urge incontinence of urine Vertigo Surgical History H/O esophagogastroduodenoscopy "repair zenkers diverticulum" History of bilateral breast reduction surgery History of bunionectomy RT History of cataract surgery RT/LEFT History of cholecystectomy Lap cholecystectomy: 06/04/16: Grade view 2, MAC#3, ETT 7.0 at [facility] History of colonoscopy History of cystoscopy (~07/24/19) History of dilatation and curettage History of removal of cyst left hand History of right breast biopsy x2--benign History of surgical removal of right nipple History of tonsillectomy and adenoidectomy History of tooth extraction all teeth History of total hysterectomy History of ureter stent Status post biopsy of thyroid gland benign Family History Brother Family history of diabetes mellitus Other No family history of adverse response to anesthesia Denies family history of Diabetes Crohn's disease Colorectal cancer Ulcerative colitis Stroke Social History Smoking Status: Former smoker Tobacco Type: Cigarettes Age Started Using Tobacco: 8; Age Quit Using Tobacco: 49; packs per day: 1.5; Second Hand Exposure: No; Do You Dip or Chew Tobacco: No; Tobacco Cessation Education Requested by Patient: No Hx Alcohol Use: No Hx Substance Use: No Preferred Language: Slovak Communication Ability: Effective Visual Impairment: No Limitations Rubber Grinder Required: No Beliefs That Will Affect Care: None marital status: Current Living Situation: Spouse Current Living Situation Comment: Patient lives with her . Her daughter and 1 grandson live there current occupational status: retired How many Children do You have: 3 Feels Safe at Home: Yes Safety Concerns: Feels Safe At This Time Diet: regular Dental Care, Regularly: No Physical Activity Frequency: Does not Exercise Seatbelt Use: sometimes Sunscreen Use: Yes Assistive Devices: Cane, Denture - Upper, Denture - Lower, Nebulizer and Walker Review of Systems Review of Systems: REVIEW OF SYSTEMS: Constitutional: No fever, sweats or chills Eyes: No diplopia, no worsening or blurred vision Respiratory: (+) chronic cough, dyspnea with exertion, No sputum, dyspnea at rest Cardiovascular: No chest pain, tightness or palpitations Abdomen: (+) diarrhea, constipation, nausea, No pain, vomiting Musculoskeletal: No joint pain, calf pain, swelling Neurologic: (+) vertiginousness symptoms, No weakness, numbness/tingling, or balance problems Skin: No rash or itch Physical Exam Physical Exam: PHYSICAL EXAM: General: awake, alert, no apparent distress Head: Normocephalic, atraumatic ENT: PERRLA, EOMI, no pharyngeal exudate, mucous membranes moist Neuro: AAO x 3, speech clear and appropriate, strength intact bilaterally 5/5, sensation intact and equal all extremities and dermatomes, no pronator drift, no visual field cuts, no facial droop Chest: equal rise and fall of the chest, no accessory muscle use, no heaves or thrills, decreased in bases, on 1L NC Cardiac: Regular rate and rhythm, telemetry reviewed, skin warm dry, cap refill <3 seconds, peripheral pulses +2 no JVD, no murmur, no edema GI: NABS x 4 quadrants, soft, nontender to palpation, no rebound, guarding or tenderness : Spontaneously voiding, no pain, no CVA tenderness, Skin: no rash or erythema Results & Data Results & Data Vital Signs (Past 12 Hours) Vital Signs Temp Pulse Pulse Resp BP BP Pulse Ox 06/05/23 13:24 57 L 18 133/96 96 06/05/23 10:55 63 23 96 06/05/23 10:31 123/98 06/05/23 10:31 68 20 06/05/23 10:11 68 25 H 06/05/23 10:11 123/83 06/05/23 09:11 06/05/23 09:00 74 19 98 06/05/23 09:00 36.8 C 74 19 165/97 H 98 06/05/23 09:10 73 O2 Del Method O2 Flow Rate 06/05/23 13:24 Nasal Cannula 3 06/05/23 10:55 Nasal Cannula 2 06/05/23 10:31 06/05/23 10:31 06/05/23 10:11 06/05/23 10:11 06/05/23 09:11 Nasal Cannula 06/05/23 09:00 Nasal Cannula 2 06/05/23 09:00 Nasal Cannula 2 06/05/23 09:10 Laboratory Results Abnormal lab results 06/05/23 06/05/23 Range/Units 09:15 09:15 MCHC 31.3 L (32.0-36.0) g/dL RDW Std Deviation 50.2 H (36.4-46.3) fL Lymph # (Auto) 0.89 L (1.20-3.40) K/uL BUN/Creatinine Ratio 24.4 H (10-20) Glucose 137 H (70-99(Fasting)) mg/dl Alkaline Phosphatase 107 H (34-104) U/L Diagnostic Findings Chest X-Ray 06/05/23 09:11 SINGLE VIEW CHEST CLINICAL HISTORY: Dizziness. FINDINGS: An AP, portable, upright chest radiograph is compared to study dated 02/01/2023 and correlated with chest CT dated 08/04/2022. The heart is mildly enlarged noting atherosclerotic calcification of the thoracic aorta. The pulmonary vasculature is noncontrast. Emphysema and chronic interstitial thickening is similar to previous. Foci of parenchymal scarring are seen throughout both lungs. No airspace consolidation or large pleural effusion is identified. No pneumothorax is seen. The skeletal structures are osteopenic. There are chronic/healed right-sided rib fractures. IMPRESSION: Cardiomegaly and emphysema with no acute cardiopulmonary abnormality identified. ACT 112: Negative or not required by law. Electronically signed by: Jose D Cruz M.D. 06/05/2023 9:[address] 06/05/23 09:11 CT head/brain wo con CLINICAL HISTORY: dizziness Technique: Contiguous axial CT images of the head were acquired from the base of the skull to the vertex without intravenous contrast administration. Images were viewed in brain, subdural and bone windows. Automated dose lowering techniques and/or adjustment according to patient size were utilized for this exam. Comparison: Comparison is made to CT head 06/19/2022 Findings: Areas of decreased attenuation are present in the periventricular and subcortical white matter bilaterally consistent with small vessel ischemic disease. Generalized cerebral atrophy with commensurate enlargement of the ventricles, sulci, and cisterns is also present. There is no acute intracranial hemorrhage or evidence of acute territorial infarction. No shift of the midline structures, mass effect, or extra-axial abnormalities are shown. Atherosclerotic calcifications are present in the intracranial segments of the internal carotid arteries. Imaged portions of the paranasal sinuses and mastoid air cells are clear. The orbits appear normal. There are no acute fractures of the calvaria or scalp swelling. Impression: No acute intracranial hemorrhage, no evidence of acute territorial infarction or other acute intracranial disease process. ACT 112: Negative or not required by law. Electronically signed by: He Paul M.D. 06/05/2023 10:08 AM Chest CTA 06/05/23 13:12 CT ANGIOGRAM OF THE CHEST CLINICAL HISTORY: Dyspnea COMPARISON STUDY: Chest x-ray dated 06/05/2023. Chest CT dated 08/04/2022. TECHNIQUE: Following the IV administration of 118 cc of Optiray 320, CT angiogram of the chest was performed from the upper abdomen to the thoracic inlet utilizing the pulmonary embolus protocol. Images are reviewed in the axial, sagittal, and coronal planes. 3-D MIPS images are created and assessed. IV contrast was administered without complication. A dose lowering technique was utilized adhering to the principles of ALARA. CT DOSE: 917.26 mGy.cm FINDINGS: Thyroid: Imaged portions of the thyroid gland are normal in size and attenuation. Thoracic aorta: There is atherosclerotic calcification of the thoracic aorta, which is normal in caliber and demonstrates standard 3-vessel arch anatomy. No dissection is seen. Pulmonary vasculature: The main pulmonary arteries are dilated suggesting pulmonary artery hypertension. There are no filling defects identified in main, lobar, or segmental pulmonary branches to suggest pulmonary embolus. Evaluation of the distal segmental and subsegmental branches is degraded by motion artifact. Heart: The heart is mildly enlarged and without pericardial effusion. Lungs and pleural spaces: Evaluation of the lung parenchyma is significantly degraded by motion artifact. There is mild emphysematous change. No airspace consolidation or pleural effusion is identified. The trachea and central airways are clear. Foci of parenchymal scarring are seen throughout both lungs. Mediastinum: There is no mediastinal lymphadenopathy. Patricia: Clear. Axillae: There is no axillary lymphadenopathy. Upper abdomen: A 2.7 cm cyst is again seen in the left lobe of the liver. There is a small hiatal hernia. 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 Skeletal structures: The skeletal structures are osteopenic. Degenerative change of hyperkyphosis is noted in the thoracic spine. There is hemangioma within the body of L1. No lytic or blastic bony lesions are seen. IMPRESSION: 1. There is no evidence of pulmonary embolus in the main, lobar, or segmental pulmonary arteries. 2. Cardiomegaly and emphysema. 3. No airspace consolidation or pleural effusion is identified. 4. Additional findings as above. ACT 112: Negative or not required by law. Electronically signed by: Jose D Cruz M.D. 06/05/2023 2:10 PM Medications Administered Home Medications atenolol 25 mg tablet 25 mg PO QAM 08/17/18 [History Confirmed 06/05/23] cholecalciferol (vitamin D3) 50 mcg (2,000 unit) capsule (Vitamin D3) 2,000 unit PO QAM 06/09/19 [History Confirmed 06/05/23] benzonatate 100 mg capsule 100 mg PO TID PRN Cough 06/19/22 [History Confirmed 06/05/23] nystatin 100,000 unit/gram topical powder 1 applic topical TID PRN Other 06/19/22 [History Confirmed 06/05/23] dextromethorphan-guaifenesin 10 mg-200 mg capsule (Coricidin HBP Chest Congestion-Cough) 1 tab-cap PO .Q4-6H PRN Cough 08/04/22 [History Confirmed 06/05/23] polyethylene glycol 3350 17 gram oral powder packet (Miralax) 17 g PO DAILY 02/20/23 [History Confirmed 06/05/23] potassium chloride 10 mEq tablet,extended release 10 meq PO QAM #90 tabs 03/19/23 [Rx Confirmed 06/05/23] magnesium oxide 500 mg tablet 500 mg PO BID #180 tabs 04/08/23 [Rx Confirmed 06/05/23] dicyclomine 10 mg capsule 10 mg PO QID PRN ABD PAIN #360 caps 04/10/23 [Rx Confirmed 06/05/23] albuterol sulfate 90 mcg/actuation aerosol inhaler 2 puff inhalation Q4 PRN Wheezing or shortness of breath #8.5 grams 04/17/23 [Rx Confirmed 06/05/23] budesonide 0.5 mg/2 mL suspension for nebulization (Pulmicort) 0.5 mg (2 mL) inhalation BID #360 mL 04/17/23 [Rx Confirmed 06/05/23] ipratropium 0.5 mg-albuterol 3 mg (2.5 mg base)/3 mL nebulization soln 3 ml inhalation Q4H PRN cough,sob,wheezing #360 mL 04/17/23 [Rx Confirmed 06/05/23] umeclidinium 62.5 mcg-vilanterol 25 mcg/actuation powdr for inhalation (Anoro Ellipta) 1 inh inhalation QAM #3 Inhalers 04/17/23 [Rx Confirmed 06/05/23] meclizine 25 mg tablet 25 mg PO Q6 PRN Dizziness Or Vertigo #10 tabs 04/19/23 [Rx Confirmed 06/05/23] atorvastatin 40 mg tablet 40 mg PO .COMPLEX #48 tabs 04/26/23 [Rx Confirmed 06/05/23] clopidogrel 75 mg tablet 75 mg PO QAM #90 tabs 04/29/23 [Rx Confirmed 06/05/23] ondansetron 4 mg disintegrating tablet 4 mg PO Q6H PRN nausea and vomiting #14 tabs 04/29/23 [Rx Confirmed 06/05/23] amitriptyline 25 mg tablet 25 mg PO HS #90 tabs 05/02/23 [Rx Confirmed 06/05/23] magnesium citrate 300 ml PO DAILY PRN constipation #296 mL 05/02/23 [Rx Confirmed 06/05/23] pantoprazole 40 mg tablet,delayed release 40 mg PO BID 05/07/23 [History Confirmed 06/05/23] tamsulosin 0.4 mg capsule (Flomax) 0.4 mg PO DAILY #7 caps 05/07/23 [Rx Confirmed 06/05/23] furosemide 40 mg tablet 40 mg PO DAILY PRN swelling or fluid accumulation #90 tabs 05/09/23 [Rx Confirmed 06/05/23] hydrochlorothiazide 25 mg tablet 25 mg PO QAM #90 tabs 05/17/23 [Rx Confirmed 06/05/23] losartan 50 mg tablet 50 mg PO QAM #90 tabs 05/27/23 [Rx Confirmed 06/05/23] ECG Additional Comments: Normal sinus rhythm Normal ECG When compared with ECG of 29-APR-2023 09:34, No significant change was found Code Status & VTE Plan VTE Prophylaxis Plan VTE Prophylaxis will be ordered: Yes Supervising Physician Co-Signing Physician Notes I personally saw and examined the patient. I verified all moreno points and agree with SAMIR Tom with the following exceptions and/or additions: 77 year old female presents to the ER with vertigo started last night but initially resolved and much worse episode this morning. Last episode as severe as this one was 4 years ago. Prior TIA with right sided vision loss in the past. Also having dizziness more frequently which she describes as lightheadedness although this also occurs while just moving her head in bed. No significant dizziness on standing. No change in speech, vision or hearing. Symptoms O/E HS RRR, no murmurs, Chest CTAB, Abso SNT, CN 2-> 12 intact, no pronator drift, normal strength in all 4 extremities and no loss of sensation A/P Unclear if both dizziness she describes is vertigo but agree with orthostatics while she is here but this may all be BPPV of differing degrees. Given resolution of vertigo with meclizine, repeated episodes and no other symptoms sign of stroke will defer MRI brain. Chronic hypoxic respiratory failure - at baseline O2. Per prior 6 minute walk she should be on 2 lPM O2 on exertion and none at rest. No acute COPD exacerbation suspected. PG Care Time/CCT Total # of Minutes Spent Total Time Spent with Patient: Total time spent is greater than 50% in coordination of care (as documented) at patient's floor/unit and/or counseling patient: Coding Level of Care Code 72516 INT INP/OBS CARE 2/55MIN Diagnoses Dizziness R42 Vertigo R42 [address] of the abdomen R93.5 IBS (irritable bowel syndrome) K58.9 Irritable bowel syndrome type: unspecified GERD (gastroesophageal reflux disease) K21.9 Obstructive sleep apnea of adult G47.33 Chronic respiratory failure with hypoxia J96.11 Hypertension I10 (4) IBS (irritable bowel syndrome) Irritable bowel syndrome type: unspecified Qualified Code(s): K58.9 - Irritable bowel syndrome without diarrhea
[2023-06-05] MEDS ORDERED: LACTATED RINGER'S 1,000 ML IV SCH (15:30)
[2023-06-05] MEDS ORDERED: ALBUTEROL HFA 8 GM INHALER INH PRN (16:23)
[2023-06-05] MEDS ORDERED: MECLIZINE HCL 25 MG TAB PO PRN (16:23)
[2023-06-05] MEDS ORDERED: ALBUT/IPRATROP 3MG/0.5MG NEB 3 ML VIAL INH PRN (16:23)
[2023-06-05] MEDS ORDERED: ONDANSETRON 4 MG OD TAB PO PRN (16:23)
[2023-06-05] MEDS ORDERED: DICYCLOMINE HCL 10 MG CAP PO PRN (16:23)
[2023-06-05] MEDS ORDERED: ONDANSETRON INJ 2 MG/ML 2 ML VIAL IV PRN (16:23)
[2023-06-05] MEDS: ACETAMINOPHEN 325 MG TAB PO PRN (17:04)
[2023-06-05] MEDS: BUDESONIDE 0.5 MG/2 ML VIAL (PULMICORT) INH SCH (19:52)
[2023-06-05] MEDS: PANTOprazole 40 MG TAB PO SCH (20:12)
[2023-06-05] MEDS: HEPARIN SOD 5,000 UNIT/0.5 ML VIAL SQ SCH (20:12)
[2023-06-05] MEDS ORDERED: ATORVASTATIN 40 MG TAB PO SCH (21:00)
[2023-06-05] MEDS ORDERED: AMITRIPTYLINE HCL 25 MG TAB PO SCH (21:00)
[2023-06-06] MEDS: ACETAMINOPHEN 325 MG TAB PO PRN ×2 (05:19→13:45)
[2023-06-06 06:28] LABS: Basophils # (auto) 0.01 K/uL (0.00-0.20); Basophils % (auto) 0.1 %; Hematocrit (blood only) 41.6 % (37.0-47.0); Hemoglobin 13.7 g/dl (12.0-16.0); Immature Granulocytes # (auto) 0.07 K/uL (0.01-0.20); Immature Granulocytes % (auto) 0.7 %; Lymphocytes # (auto) 0.94 K/uL (1.20-3.40); Lymphocytes % (auto) 9.3 %; Mean Corpuscular Hgb Conc 32.9 g/dL (32.0-36.0); Mean Platelet Volume 9.3 fL (9.4-12.4); Monocytes # (auto) 0.41 K/uL (0.11-0.59); Neutrophils # (auto) 8.73 K/uL (1.40-6.50); Neutrophils % (auto) 85.9 %; Platelet Count 165 K/uL (130-400); RDW Coefficient of Variation 13.8 % (11.5-14.5); RDW Standard Deviation 46.2 fL (36.4-46.3); Red Blood Count 4.57 M/uL (4.20-5.40); White Blood Count 10.16 K/ul (4.8-10.8)
[2023-06-06 06:40] LABS: Calcium 9.4 mg/dl (8.6-10.3); Creatinine Clr Calc Pharmacy 63.6 ml/min; Est GFR (African American) 89.3 ml/min; Est GFR (Non-African American) 77.1 ml/min; Magnesium 2.1 mg/dl (1.7-2.4); Potassium 4.2 mmol/L (3.5-5.1)
[2023-06-06] MEDS: BUDESONIDE 0.5 MG/2 ML VIAL (PULMICORT) INH SCH ×2 (07:06→19:04)
[2023-06-06 08:23] VITALS: TEMP 97.9
[2023-06-06] MEDS: PANTOprazole 40 MG TAB PO SCH (08:38)
[2023-06-06] MEDS: HEPARIN SOD 5,000 UNIT/0.5 ML VIAL SQ SCH (08:40)
[2023-06-06] MEDS ORDERED: LOSARTAN POTASSIUM 50 MG TAB PO SCH (09:00)
[2023-06-06] MEDS ORDERED: ATENOLOL 25 MG TABLET PO SCH (09:00)
[2023-06-06] MEDS ORDERED: CLOPIDOGREL BISULFATE 75 MG TAB PO SCH (09:00)
[2023-06-06] MEDS ORDERED: POLYETHYLENE (MIRALAX) 17 GM PACK PO SCH (09:00)
[2023-06-06] MEDS ORDERED: UMECLIDINIUM/VILANTEROL 62.5/25MCG 7 PUFFS/INHALER INH SCH (09:00)
[2023-06-06] MEDS ORDERED: CHOLECALCIFEROL 1,000 UNITS 25 MCG TAB PO SCH (09:00)
[2023-06-06] MEDS ORDERED: LORazepam 0.5 MG TAB PO ONE (10:27)
--- NOTE | 2023-06-06 13:28 | Magnetic Resonance Report ---
MRI OF THE BRAIN WITHOUT IV CONTRAST CLINICAL HISTORY: Vertigo. COMPARISON STUDY: CT of the brain dated 06/05/2023. TECHNIQUE: MRI of the brain was performed utilizing various T1 and T2-weighted sequences in the axial , sagittal, and coronal planes. IV contrast was not administered for this examination. FINDINGS: Brain parenchyma: There is age-related involutional change noting moderate to advanced subcortical an d periventricular microangiopathic disease. There is no hemorrhage or mass effect. There is no restri cted diffusion to suggest acute ischemia. Woodson-white matter differentiation is preserved. No extra-ax ial fluid collection is seen. The cerebellar tonsils are normal in configuration. Ventricles, sulci, and cisterns: Prominent secondary to involutional change. Pituitary and sella: Unremarkable. Intracranial vasculature: Normal flow voids are maintained at the skull base. Orbits: The bony orbits are grossly intact. Orbital contents are normal in appearance noting bilatera l ocular lens implant. Sinuses and mastoids: There is a left mastoid effusion. The right mastoid air cells are clear. Retent ion cysts in the right maxillary antrum measuring up to 1.6 cm. The frontal sinuses are otherwise ulisses ar. Calvarium: Unremarkable. Cervical cord: Partially visualized cervical spinal cord is normal in morphology and signal intensity . IMPRESSION: No acute intracranial abnormality. ACT 112: Negative or not required by law. Electronically signed by: Jose D Cruz M.D. 06/06/2023 1:26 PM
[2023-06-06 15:20] VITALS: BP 115/60
--- NOTE | 2023-06-06 19:23 | Discharge Summary ---
Date of Service June 06, 2023 Admission HPI Per Admitting Provider 77 YOF with medical history of: HTN, VIRA, COPD, home oxygen use, kidney stones, chronic respiratory failure, vocal cord nodules, GERD. Patient comes to the EMD today secondary to being dizzy. Patient states that yesterday evening and this morning she had dizziness that was accompanied with room spinning, cold sweaty feeling, and nausea without vomiting. She also noted this morning she felt off balance to her right. This has resolved since treatment in the EMD. However, the patient still felt dizzy when she changed position on her way to the CT scanner. This was more lightheadedness and was without room spinning or cold sweating. The patient was sent to the CT scanner in the EMD secondary to hypoxia to 86%- she is on oxygen at home for exertion and while sleeping- for which she reports she hardly uses except at night. Her CTA was negative for PE or acute pulmonary process, but notes emphysema, liver cyst, and celiac trunk 1.2 cm in diameter. Patient notes she is on 3 blood pressure medications at home, but does not take her BP regularly. Patient will be observed overnight for trending of her vital signs, monitoring for arrhythmia, and gentle IV hydration. Will obtain orthostatics. CODE: FULL Discharge Data Allergies Allergy/AdvReac Type Severity Reaction Status Date / Time adhesive Allergy Intermediate RASH Verified 05/07/23 08:32 ibuprofen Allergy Intermediate RASH Verified 05/07/23 08:32 Iodinated Contrast Media Allergy Intermediate HIVES, Verified 05/07/23 08:32 EYES SWELL SHUT latex Allergy Intermediate RASH Verified 05/07/23 08:32 naproxen Allergy Intermediate SWELLING, Verified 05/07/23 08:32 RASH, HIVES Ordered Studies 06/05/23 09:11 CT head/brain wo con Stat 06/05/23 13:12 CT for pulmonary embolism PE [CT angio chest PE protocol] Stat 06/06/23 08:20 MR brain wo con Routine Discharge Plan Discharge Items Patient Disposition: Home - Self-Care Reason For Visit: DIZZINESS Discharge Diagnosis: 1. Vertigo - likely chronic, intermittent inner ear problem - possibly "BPV" 2. 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 Chronic nausea 4. COPD 5. Chronic respiratory failure on home oxygen Activity: As commented below Activity Comment: light activities over the next few days then gradually increase activity Driving/Machine Use: NO DRIVING if you are still having vertigo & taking meclizine Non-emergency contact: Primary Care Provider Call non-emergency contact if: you have any medication questions and your symptoms worsen Follow-up/Referrals: Lala Baum MD [Primary Care Provider] - (see your family doctor within 1 week ) Todd Sanchez PA-C [Physician [facility]] - 06/11/23 (follow-up of reflux/regurgitation ) Diet: Heart Healthy Addtl Attending Provider Instructions: Mrs Hayes, You were hospitalized for vertigo. This quickly resolved with use of meclizine medication. Your MRI of the brain did not show a stroke to account for your vertigo symptoms. Thus, your vertigo is coming from the inner ear. About 90% of vertigo originates from an inner ear problem. You have had vertigo in the past. Intermittent vertigo over months/years is often due to a condition called "BPV." (see handout) If you have BPV you can have vertigo again in the future. Incidentally we saw a mild aneurysm of your celiac artery which is an artery that is present in the abdomen. It is 12mm in size. There is no treatment necessary at this time for the aneurysm. Continue your clopidogrel and cholesterol medication as previous. You could have a repeat scan in 12 months to recheck the artery. Recommendations - 1. vertigo - meclizine 12.5mg every 6 hours as needed for dizziness/vertigo. 2. oxygen - we performed a walking oxygen test today before discharge. This showed that you should use 2 liters of oxygen with ambulation. You do not need to use your oxygen when you are sitting down. Please use the oxygen more consistently when walking around your home and anytime when you leave your home. Continue to use the oxygen with sleep as well. 3. [facility]. Return to [facility] if - * you have uncontrollable vertigo * you develop vision loss or double vision with the vertigo * you develop severe imbalance when trying to walk * you have uncontrolled nausea and/or vomiting Pending Studies at Discharge: No Stand-Alone Forms: My [facility], Smoking Cessation Medications and DC Order Prescriptions: Continued potassium chloride 10 mEq tablet extended release 10 meq PO QAM Qty: 90 1RF magnesium oxide 500 mg tablet 500 mg PO BID Qty: 180 3RF dicyclomine 10 mg capsule 10 mg PO QID PRN (Reason: ABD PAIN) Qty: 360 3RF atorvastatin 40 mg tablet 40 mg PO .COMPLEX Qty: 48 3RF Rx Instructions: 40 mg orally every other day; clopidogrel 75 mg tablet 75 mg PO QAM Qty: 90 3RF amitriptyline 25 mg tablet 25 mg PO HS Qty: 90 3RF furosemide 40 mg tablet 40 mg PO DAILY PRN (Reason: swelling or fluid accumulation) Qty: 90 3RF hydrochlorothiazide 25 mg tablet 25 mg PO QAM Qty: 90 1RF losartan 50 mg tablet 50 mg PO QAM Qty: 90 1RF magnesium citrate Solution 300 ml PO DAILY PRN (Reason: constipation) Qty: 296 0RF albuterol sulfate 90 mcg/actuation HFA aerosol inhaler 2 puff INHALATION Q4 PRN (Reason: Wheezing or shortness of breath) Qty: 8.5 3RF ipratropium-albuterol 0.5 mg-3 mg(2.5 mg base)/3 mL solution for nebulization 3 ml INH Q4H PRN (Reason: cough,sob,wheezing) Qty: 360 6RF Anoro Ellipta 62.5-25 mcg/actuation blister with device 1 inh INHALATION QAM Qty: 3 4RF budesonide [Pulmicort] 0.5 mg/2 mL suspension for nebulization 0.5 mg INH BID Qty: 360 4RF cholecalciferol (vitamin D3) [Vitamin D3] 2,000 unit Capsule 2,000 unit PO QAM atenolol 25 mg tablet 25 mg PO QAM Coricidin HBP Chest Ren-Cough 10-200 mg Capsule 1 tab-cap PO .Q4-6H PRN (Reason: Cough) ondansetron 4 mg tablet,disintegrating 4 mg PO Q6H PRN (Reason: nausea and vomiting) Qty: 14 0RF pantoprazole 40 mg Tablet,Delayed Release (Dr/Ec) 40 mg PO BID benzonatate 100 mg capsule 100 mg PO TID PRN (Reason: Cough) nystatin 100,000 unit/gram powder 1 applic TOPICAL TID PRN (Reason: Other) polyethylene glycol 3350 [Miralax] 17 gram powder in packet 17 g PO DAILY Changed meclizine 25 mg tablet 12.5 mg PO Q6 PRN (Reason: vertigo/dizziness) Qty: 20 0RF Discontinued tamsulosin [Flomax] 0.4 mg capsule 0.4 mg PO DAILY Qty: 7 0RF Discharge Orders: Discharge Order (Routine); Ordered 06/06/23 Ordered By: Ismael Bob/Other Patient Handouts: ED BPV Vertigo, ED Vertigo, Unspecified Admission Data Admit Date/Time: 06/05/23 14:33 Attending Provider: Ismael Nix Admit Provider: Ismael Wheeler Primary Care Provider: Lala Baum Coding Diagnoses
[2023-06-06 19:29] VITALS: PULSE 67; O2SAT 95
--- OUTSIDE RECORDS SUMMARY | 2023-06-07 07:34 | External Medical Summary | Summary of Care ---
Author Name Unknown Organization [facility] Address [address] [facility] [address] Phone [phone] Care Team Providers Care Simulation Engineer Name Role Phone Unavailable Primary Care Provider Unavailabl e Reason for Visit * Reason Comments eRx-Medication Refill Encounter Details Date Type Department Care Team Description 03/06/2023 Refill Family Medicine [address] [place] [address] Yariel Cardoza MD [address] [place] [address] [place] [phone] Allergies Active Allergy Reactions Severity Noted Date Comments Adhesive Tape 06/29/2003 Sensitive to Naproxen Hives 05/28/2015 Ivp Dye Hives 08/20/2000 Latex Other (Please comment) 01/05/2015 Contact rash Ibuprofen Rash 01/05/2015 documented as of this encounter (statuses as of 03/07/2023) Medications Medication Sig Dispensed Refills Start Date End Date Status oxygen GASIndications:Hypoxi a Use 2 L/min(Oxygen) as directed continuous. 1 Each 0 02/18/2017 Active VENTOLIN HFA 108 (90 Base) MCG/ACT inhaler INHALE 2 PUFFS BY MOUTH EVERY 4 HOURS NEEDED FOR WHEEZING. 1 Inhaler 5 02/10/2018 Active umeclidinium-vilanter ol (ANORO ELLIPTA) 62.5-25 MCG/INH AEPBIndications:COPD Inhale by mouth 1 Puff daily . 0 Active Cholecalciferol 1000 units Capsule Take 2,000 Units by mouth daily. 0 Active albuterol-ipratropium (DUONEB) 2.5-0.5 MG/3ML nebulizer solutionIndications:C OPD, severe (HCC) INHALE 3 MLS VIA NEBULIZER EVERY 4 HOURS NEEDED FOR COUGH, SHORTNESS OF BREATH OR WHEEZING. 360 mL 1 04/11/2020 Active Meclizine HCl 25 MG Oral Tablet (Antivert) TAKE 1 TABLET BY MOUTH ONCE EVERY 6 HOURS NEEDED FOR DIZZINESS/VERTI GO 10 Tab 0 06/06/2021 Active Bisacodyl 5 MG Oral Tablet Delayed Release (Dulcolax) Take by mouth 10 mg at bedtime . 0 Active Naphazoline-Phenirami ne 0.025-0.3 % Ophthalmic Solution (Naphcon-A)Indication s:1-2 drops each eye as needed for eye irritation 1 Drop 3 times a day . 0 Active Polyethylene Glycol 3350 17 GM/SCOOP Oral Powder (MiraLax) Take 17 g by mouth 2 times a day. 0 Active Benzonatate 100 MG Oral Capsule (Tessalon Perles)Indications:Vi ral illness Take 1 Capsule by mouth 3 times a day as needed for Cough. 30 Capsule 1 09/27/2021 Active Zoster Vac Recomb Adjuvanted 50 MCG/0.5ML Intramuscular Suspension Reconstituted (Shingrix)Indications :Need for vaccination for zoster Inject 0.5 mL into a large muscle now and repeat dose in 60 to 180 days 1 Each 0 10/16/2021 Active Budesonide 0.5 MG/2ML Inhalation Suspension (Pulmicort)Indication s:COPD, severe (HCC) INHALE ONE UNIT DOSE VIAL VIA NEBULIZER TWO TIMES A DAY. 120 mL 5 10/16/2021 Active Omeprazole 20 MG Oral Capsule Delayed Release (PriLOSEC)Indications :Gastroesophageal reflux disease without esophagitis TAKE 2 CAPSULES BY MOUTH EVERY DAY 180 Capsule 3 02/26/2022 Active Atorvastatin Calcium 40 MG Oral Tablet (Lipitor) TAKE 1 TABLET BY MOUTH EVERY DAY 90 Tablet 3 02/26/2022 Active Dicyclomine HCl 10 MG Oral Capsule (Bentyl)Indications:I rritable bowel syndrome with both constipation and diarrhea TAKE ONE CAPSULE BY MOUTH 4 TIMES DAILY NEEDED FOR ABDOMINAL PAIN, CRAMPING 360 Capsule 1 04/02/2022 Active traMADol HCl 50 MG Oral Tablet (Ultram) 50 mg . 0 04/01/2022 Active Nystatin 664611 UNIT/GM External Powder (Nystop)Indications:C andidal skin infection APPLY TOPICALLY TO AFFECTED AREA 3 TIMES A DAY. 60 g 1 04/16/2022 Active Furosemide 40 MG Oral Tablet (Lasix)Indications:Bi lateral lower extremity edema Take by mouth 1 Tablet in the morning. As needed for swelling or fluid accumulation. 30 Tablet 0 04/26/2022 Active Clopidogrel Bisulfate 75 MG Oral Tablet (pLAVix)Indications:S tenosis of right vertebral artery,TIA (transient ischemic attack) TAKE 1 TABLET BY MOUTH EVERY DAY 90 Tablet 2 05/11/2022 Active Azithromycin 250 MG Oral Tablet (Zithromax) Take by mouth 250 mg daily . MWF only 0 05/24/2022 Active Ondansetron 4 MG Oral Tablet Disintegrating (Zofran) PLACE 1 TABLET ON TONGUE EVERY 8 HOURS NEEDED FOR NAUSEA. 30 Tablet 0 07/09/2022 Active Magnesium Oxide 500 MG Oral Tablet Take by mouth 1 Tablet in the morning AND 1 Tablet before bedtime. 180 Tablet 1 07/19/2022 Active Amitriptyline HCl 25 MG Oral Tablet (Elavil) TAKE 1 TABLET BY MOUTH EVERYDAY AT BEDTIME 90 Tablet 3 07/28/2022 Active Cefdinir 300 MG Oral Capsule (Omnicef) TAKE 1 CAPSULE BY MOUTH TWICE A DAY FOR 10 DAYS 0 08/05/2022 Active Atenolol 25 MG Oral Tablet (Tenormin)Indications :HTN, goal below 140/90 TAKE 1 TABLET BY MOUTH EVERY DAY 90 Tablet 1 11/16/2022 Active Losartan Potassium 50 MG Oral Tablet (Cozaar)Indications:H TN, goal below 140/90 TAKE 1 TABLET BY MOUTH EVERY DAY IN THE MORNING 90 Tablet 2 12/01/2022 Active hydroCHLOROthiazide 25 MG Oral Tablet (Hydrodiuril) TAKE 1 TABLET BY MOUTH EVERY DAY IN THE MORNING 90 Tablet 2 12/01/2022 Active Potassium Chloride ER 10 MEQ Oral Tablet Extended Release TAKE 1 TABLET BY MOUTH EVERY DAY 90 Tablet 1 12/17/2022 Active documented as of this encounter (statuses as of 03/07/2023) Active Problems Problem Noted Date Chronic respiratory failure with hypoxia 11/30/2022 Nontoxic single thyroid nodule 2 Hypomagnesemia 06/22/2022 Allergic rhinitis 04/02/2022 Prediabetes 12/18/2021 Overview: Per Prediabetes protocol Peripheral vascular disease 10/16/2021 Gastro-esophageal reflux disease without esophagitis 10/16/2021 History of TIA (transient ischemic attac k) 03/29/2021 Overview: 09/2020 Vertebral artery stenosis, asymptomatic, right 03/29/2021 Insomnia 03/29/2021 Schatzki's ring 12/22/2020 Moderate episode of recurrent major depr essive disorder 06/19/2019 HTN, goal below 140/90 08/09/2017 Lumbar spinal stenosis 02/18/2017 Primary osteoarthritis of right knee Rhinitis, nonallergic 03/30/2016 Urinary, incontinence, stress female Lumbar degenerative disc disease 016 Lumbar facet arthropathy 02/06/2016 Severe obesity with body mas s index (BMI) of 35.0 to 39.9 with serious comorbidity 01/19/2016 Overview: ICD-10 update of inactive diagnosis COPD, severe 12/21/2015 Dyslipidemia, goal LDL below 100 016 Slow transit constipation 07/20/2015 IBS (irritable bowel syndrome) 5 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) 07/20/2015 Bilateral carpal tunnel syndrome 015 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 documented as of this encounter (statuses as of 03/07/2023) Resolved Problems Problem Noted Date Resolved Date Occlusion and stenosis of right vertebral artery 06/22/2022 11/30/2022 Hyperlipidemia 06/22/2022 12/11/2022 Acute right ankle pain 05/01/2022 3 Thyroid nodule 10/16/2021 11/30/2022 Pulmonary hypertension 05/07/2017 1 Impaired fasting glucose 03/15/2017 018 Multiple thyroid nodules 09/09/2016 023 Thyroid nodule 09/05/2016 01/07/2017 ETD (eustachian tube dysfunction) 03/30/2016 08/26/2018 Pruritic disorder 03/30/2016 08/26/2018 Kidney disease, chronic, stage III (GFR 30-59 ml /min) 10/16/2015 08/09/2017 Allergic rhinitis 09/21/2015 03/30/2016 Kidney stone 08/22/2015 07/28/2018 Dyslipidemia, goal LDL below 130 08/22/2015 10/16/2015 Generalized osteoarthritis 08/22/201503/30 Tubular adenoma of colon 07/20/2015 018 Gastroesophageal reflux disease without esophagi tis 07/20/2015 02/26/2020 COPD, severity to be determined 07/20/2015 12/21/2015 ACQ ESOPHAG DIVERTICULUM 12/22/2004 015 Dysphagia 10/24/2004 07/20/2015 Overview: ICD-10 update of inactive term Urge incontinence 05/03/2004 07/20/2015 Hypertrophy of breast 08/31/2003 07/20/2015 Reflux esophagitis 01/28/2002 07/20/2015 Abnormal weight gain 01/28/2002 07/20/2015 BENIGN HYPERTENSION 01/28/2002 07/20/2015 Family history of other cardiovascular diseases 01/28/2002 07/20/2015 Overview: ICD-10 update of inactive term Encounter for long-term (current) use of medicat ions 01/28/2002 07/20/2015 Overview: ICD-10 update of inactive term documented as of this encounter (statuses as of 03/07/2023) Immunizations Name Administration Dates Next Due COVID-19 mRNA, LNP-s, No Pre serve, 2-Dose Series (Chainalytics) 09/13/2021,12/16/2020,11/25/2020 Covid-19, Mrna, Lnp-s, Pf, B ivalent, 30 Mcg, IM, 12 yrs and above (Chainalytics) 08/14/2022 Pneumococcal Conjugate Vacc, 13 Valent (Prevnar) 09/21/2015 Pneumococcal Polysaccharide PPV23 (Pneumovax) 03/28/2017 Seasonal Influenza, Quadriva lent Hd (Fluzone Hd) 08/10/2022,06/20/2021 Seasonal Influenza, Quadriva lent, No Preserve, 6 Mons & Above, IM 07/28/2018,07/31/2017 Seasonal Influenza, Quadriva lent, No Preserve, Adjuvanted, 65+ Yrs, IM 08/12/2020 Seasonal Influenza, Quadriva lent, No Preserve, IM 07/21/2016,07/20/2015 Seasonal Influenza, Split, I IV3, With Preserve, Inj 08/17/2006 Seasonal Influenza, Trivalen t, Adjuvanted, 65+ yrs 07/10/2019 TDAP (age 10 and older)(Boostrix) 04/19/2018 documented as of this encounter Social History Tobacco Use Types Packs/Day Years Used Date Smoking Tobacco: Former Cigarettes 1.8 38 Q uit: 10/07/1995 Smokeless Tobacco: Never Comments:quit in 1995 Alcohol Use Standard Drinks/Week Comments No 0 (1 standard drink = 0.6 oz pur e alcohol) Food Insecurity Answer Date Recorded Within the past 12 months, y ou worried that your food would run out before you got money to buy more. Never true 08/11/2019 Within the past 12 months, t he food you bought just didn't last and you didn't have money to get more. Never true 08/11/2019 Sex Assigned at Date Recorded Not on file Job Start Date Occupation Industry Not on file Not on file Not on file documented as of this encounter Miscellaneous Notes * Telephone Encounter - Rosio Darling RPh - 03/07/2023 9:40 AM EDTRefused Prescriptions: Disp Refills Magnesium Oxide 500 MG Oral Tablet 180 Ta*1 Sig: TAKE 1 TABLET BY MOUTH EVERY DAY IN THE MORNING AND BEFORE BEDTIMERefused By: ROSIO DARLING for Refusal:Managed by another physician documented in this encounter Plan of Treatment Scheduled Procedures Name Priority Associated Diagnoses Date/Ti me COLONOSCOPY FLEXIBLE PROXIMAL DIAGNOSTIC Recall History of colon polyps Health Maintenance Due Date Last Done Comments Albumin/Creatinine Ratio 1961 Alpha-1 Antitrypsin 1961 Hepatitis C Screening 1961 Zoster Vaccines (1 of 2) 1993 *ADVANCE DIRECTIVE NOT ON FILE 12/23/2015 Depression Screening, Annual for Pts 12 and Over 08/11/2020 08/11/2019 DXA Scan 08/17/2022 08/17/2015 HbA1c 11/28/2022 11/28/2021, 12/06, 03/19/2017 GFR 06/19/2023 06/19/2022, 11/08, 06/06/2021, Additional history exists O2 ASSESSMENT COMPLETED IN PAST YEAR FOR COPD 11/30/2023 11/30/2022 COLONOSCOPY-EVERY 5 YRS AGES 18-100 08/28/2026 08/28/2021, 06/30/2021, 06/15/2021, Additional history exists DTaP,Tdap,and Td Vaccines (2 - Td or Tdap) 04/19/2028 04/19/2018, 05/03/2004, 05/03/2004 Pneumococcal Vaccine: 65+ Years Completed 03/28/2017, 09/21/2015 COLONOSCOPY-EVERY 3 YRS AGES 18-100 Discontinued 08/28/2021, 06/30/2021, 06/15/2021, Additional history exists Influenza Vaccine (FLU shot) Completed 08/10/2022, 06/20/2021, 08/12/2020, Additional history exists COVID-19 Vaccine Completed 08/14/2022, 05/2021, 12/16/2020, Additional history exists GARDASIL-HPV IMMUNIZATION SERIES Aged Out No longer eligible based on patient's age to complete this topic Hepatitis B Aged Out No longer eligi ble based on patient's age to complete this topic MENINGOCOCCAL (MENACTRA/MENVEO) Aged Out No longer eligible based on patient's age to complete this topic documented as of this encounter Medical Devices Not on filedocumented as of this encounter
--- OUTSIDE RECORDS SUMMARY | 2023-06-07 07:34 | External Medical Summary | Summary of Care ---
Author Name Unknown Organization [facility] Address [address] [facility] [address] Phone [phone] Care Team Providers Care Dental Laboratory Manager Name Role Phone Unavailable Primary Care Provider Unavailabl e Reason for Visit * Reason Onset Date Comments Medical Records Request 03/05/2023 [facility] Encounter Details Date Type Department Care Team Description 03/05/[address] [place] [address] Yariel Cardoza MD [address] [place] [address] [place] [id number] Medical Records Request ([facility]) Allergies Active Allergy Reactions Severity Noted Date Comments Adhesive Tape 06/29/2003 Sensitive to Naproxen Hives 05/28/2015 Ivp Dye Hives 08/20/2000 Latex Other (Please comment) 01/05/2015 Contact rash Ibuprofen Rash 01/05/2015 documented as of this encounter (statuses as of 03/05/2023) Medications Medication Sig Dispensed Refills Start Date [...] 50 mg . 0 04/01/2022 Active Nystatin 793605 UNIT/GM External Powder (Nystop)Indications:C andidal skin infection [...] as of this encounter (statuses as of 03/05/2023) Active Problems Problem Noted Date Chronic respiratory [...] as of this encounter (statuses as of 03/05/2023) Resolved Problems Problem Noted Date Resolved Date [...] as of this encounter (statuses as of 03/05/2023) Immunizations Name Administration Dates Next Due COVID-19 mRNA, LNP-s, No Pre serve, 2-Dose Series (TopBlip) 09/13/2021,12/16/2020,11/25/2020 Covid-19, Mrna, Lnp-s, Pf, B ivalent Booster, 30 Mcg, IM, 12 yrs and above (TopBlip) 08/14/2022 Pneumococcal Conjugate Vacc, 13 Valent (Prevnar) [...] encounter Miscellaneous Notes * Telephone Encounter - VIRA Clifton - 03/05/2023 9:51 AM EDT [place]05[place] [facility] [place] was sent to HIM LH 29-25 on 03/05/2023. To check status of records, please call HIM directly at [phone]. I cx'd the future Abine appt at pt request. documented in this encounter Plan of Treatment [...]
--- OUTSIDE RECORDS SUMMARY | 2023-06-07 07:34 | External Medical Summary | Summary of Care ---
Author Name Unknown Organization [facility] Address [address] [facility] [facility] [address] Phone [phone] Care Team Providers Care Applied Behavior Science Specialist Name Role Phone Yariel Cardoza MD Primary Care Provide r Reason for Visit * Reason Onset Date Comments Fax 12/31/2022 Encounter Details Date Type Department Care Team Description 12/31/2022 Telephone Family Medicine [address] [address] Yariel Cardoza MD [address] [place] [address] [place] [phone] Fax Allergies Active Allergy Reactions Severity Noted Date Comments Adhesive Tape 06/29/2003 Sensitive to Naproxen Hives 05/28/2015 Ivp Dye Hives 08/20/2000 Latex Other (Please comment) 01/05/2015 Contact rash Ibuprofen Rash 01/05/2015 documented as of this encounter (statuses as of 02/13/2023) Medications Medication Sig Dispensed Refills Start Date [...] 50 mg . 0 04/01/2022 Active Nystatin 945413 UNIT/GM External Powder (Nystop)Indications:C andidal skin infection [...] as of this encounter (statuses as of 02/13/2023) Active Problems Problem Noted Date Chronic respiratory [...] as of this encounter (statuses as of 02/13/2023) Resolved Problems Problem Noted Date Resolved Date [...] as of this encounter (statuses as of 02/13/2023) Immunizations Name Administration Dates Next Due COVID-19 mRNA, LNP-s, No Pre serve, 2-Dose Series ([employer]) 09/13/2021,12/16/2020,11/25/2020 Covid-19, Mrna, Lnp-s, Pf, B ivalent Booster, 30 Mcg, IM, 12 yrs and above ([employer]oudai) 08/14/2022 Pneumococcal Conjugate Vacc, 13 Valent (Prevnar) [...] * Telephone Encounter - VIRA Clifton - 02/13/2023 8:45 AM EDT I faxed the OV notes from 12/11/2022 to [facility] at fax # provided. Pt was already seen by Dr. Hernández 01/28/2023 * Telephone Encounter - VIRA Cosme - 12/31/2022 3:00 PM EDT Caller requesting the following information to be faxed: Name/Company of caller: Patient Information requested to be faxed: OV note from 12.11. Fax number: [phone] Attention to Name/Company: [facility] [place] Any additional information?: documented in this encounter Plan of Treatment Upcoming Encounters Date Type Specialty Care Team Description 04/16/2023 Office Visit Family Medicine Yariel Cardoza MD [address] [place] [address] [place] [phone] Scheduled Procedures Name Priority Associated Diagnoses Date/Ti me COLONOSCOPY FLEXIBLE PROXIMAL DIAGNOSTIC Recall History of colon polyps Health Maintenance Due Date Last Done Comments Albumin/Creatinine Ratio 1961 Alpha-1 Antitrypsin 1961 Hepatitis C Screening 1961 Zoster Vaccines (1 of 2) 1993 *ADVANCE DIRECTIVE NOT ON FILE 12/23/2015 Depression Screening, Annual for Pts 12 and Over 08/11/2020 08/11/2019 DXA Scan 08/17/2022 08/17/2015 HgA1C 11/28/2022 11/28/2021, 12/06, 03/19/2017 GFR - Renal Function 06/19/2023 06/19/2022, 11/28/2021, 06/06/2021, Additional history exists O2 ASSESSMENT COMPLETED [...] Not on filedocumented as of this encounter Care Teams Applied Behavior Science Specialist Relationship Specialty Start Date End Date Yariel Cardoza MD [address] [place] [address] [place] [phone] PCP - General Family Medicine 12/01/18 documented as of this encounter
--- OUTSIDE RECORDS SUMMARY | 2023-06-07 07:35 | External Medical Summary | Summary of Care ---
Author Name Unknown Organization [place] [address] Care Team Providers Care Manager Primary Care Name Role Phone Yariel Cardoza MD Primary Care Provide r Reason for Referral * Evaluate & Treat - Unlimited Visits (Within 10 days (routine)) - Authorized Specialty Diagnoses / Procedures Referred By Matt cota Referred To Contact [employer] Driver Diagnoses COPD, severe (HCC) Landon Clark DO [address] [facility] [place] [address] Referral ID Status Reason Start Date Expiration Date Visits Requested Visits Authorized [id number] Authorized Specialty Services Required 11/07/2022 999 999 Question Answer Referral Priority Within 10 days (routine) 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 Yes Best source of contact for the patient:Patient Patient has remote monitoring device(s): No Connectivity in the home: : no cell service. Has wifi Reason for Visit * Reason Comments [facility]: Maintenance Encounter Details Date Type Department Care Team Description 11/02/2022 Home Visit [facility], [facility] [address] [place] [address] Jonathan Bustillo, SELENE [address] [place] [id number] COPD, severe (HCC)* Allergies Active Allergy Reactions Severity Noted Date Comments Adhesive Tape 06/29/2003 Sensitive to Naproxen Hives 05/28/2015 Ivp Dye Hives 08/20/2000 Latex Other (Please comment) 01/05/2015 Contact rash Ibuprofen Rash 01/05/2015 documented as of this encounter (statuses as of 11/07/2022) Medications Medication Sig Dispensed Refills Start Date End Date Status oxygen GASIndications:Hypo bryan Use 2 L/min(Oxygen) as directed continuous. 1 Each 0 02/18/2017 Active VENTOLIN HFA 108 (90 Base) MCG/ACT inhaler INHALE 2 PUFFS BY MOUTH EVERY 4 HOURS NEEDED FOR WHEEZING. 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 0 Active Cholecalciferol 1000 units Capsule Take 2,000 Units by mouth daily. 0 Active albuterol-ipratropi um (DUONEB) 2.5-0.5 MG/3ML nebulizer solutionIndications :COPD, severe (HCC) INHALE 3 MLS VIA NEBULIZER EVERY 4 HOURS NEEDED FOR COUGH, SHORTNESS OF BREATH OR WHEEZING. 360 mL 1 04/11/2020 Active Meclizine HCl 25 MG Oral Tablet (Antivert) TAKE 1 TABLET BY MOUTH ONCE EVERY 6 HOURS NEEDED FOR DIZZINESS/VERT IGO 10 Tab 0 06/06/2021 Active Bisacodyl 5 MG Oral Tablet Delayed Release (Dulcolax) Take by mouth 10 mg at bedtime . 0 Active Naphazoline-Phenira mine 0.025-0.3 % Ophthalmic Solution (Naphcon-A)Indicati ons:1-2 drops each eye as needed for eye irritation 1 Drop 3 times a day . 0 Active Polyethylene Glycol 3350 17 GM/SCOOP Oral Powder (MiraLax) Take 17 g by mouth 2 times a day. 0 Active Benzonatate 100 MG Oral Capsule (Tessalon Perles)Indications: Viral illness Take 1 Capsule by mouth 3 times a day as needed for Cough. 30 Capsule 1 09/27/2021 Active Zoster Vac Recomb Adjuvanted 50 MCG/0.5ML Intramuscular Suspension Reconstituted (Shingrix)Indicatio ns:Need for vaccination for zoster Inject 0.5 mL into a large muscle now and repeat dose in 60 to 180 days 1 Each 0 10/16/2021 Active Budesonide 0.5 MG/2ML Inhalation Suspension (Pulmicort)Indicati ons:COPD, severe (HCC) INHALE ONE UNIT DOSE VIAL VIA NEBULIZER TWO TIMES A DAY. 120 mL 5 10/16/2021 Active Potassium Chloride ER 10 MEQ Oral Tablet Extended Release TAKE 1 TABLET BY MOUTH EVERY DAY 90 Tablet 3 02/02/2022 Active Omeprazole 20 MG Oral Capsule Delayed Release (PriLOSEC)Indicatio ns:Gastroesophageal reflux disease without esophagitis TAKE 2 CAPSULES BY MOUTH EVERY DAY 180 Capsule 3 02/26/2022 Active Atorvastatin Calcium 40 MG Oral Tablet (Lipitor) TAKE 1 TABLET BY MOUTH EVERY DAY 90 Tablet 3 02/26/2022 Active Dicyclomine HCl 10 MG Oral Capsule (Bentyl)Indications :Irritable bowel syndrome with both constipation and diarrhea TAKE ONE CAPSULE BY MOUTH 4 TIMES DAILY NEEDED FOR ABDOMINAL PAIN, CRAMPING 360 Capsule 1 04/02/2022 Active traMADol HCl 50 MG Oral Tablet (Ultram) 50 mg . 0 04/01/2022 Active DM-guaiFENesin ER 30-600 MG Oral Tablet Extended Release 12 Hour Take by mouth 1 Tablet every 12 hours . For 5 days 0 Active Nystatin 299092 UNIT/GM External Powder (Nystop)Indications :Candidal skin infection APPLY TOPICALLY TO AFFECTED AREA 3 TIMES A DAY. 60 g 1 04/16/2022 Active Furosemide 40 MG Oral Tablet (Lasix)Indications: Bilateral lower extremity edema Take by mouth 1 Tablet in the morning. As needed for swelling or fluid accumulation. 30 Tablet 0 04/26/2022 Active hydroCHLOROthiazide 25 MG Oral Tablet (Hydrodiuril) TAKE 1 TABLET BY MOUTH EVERY DAY IN THE MORNING 90 Tablet 2 05/02/2022 Active Clopidogrel Bisulfate 75 MG Oral Tablet (pLAVix)Indications :Stenosis of right vertebral artery,TIA (transient ischemic attack) TAKE 1 TABLET BY MOUTH EVERY DAY 90 Tablet 2 05/11/2022 Active Atenolol 25 MG Oral Tablet (Tenormin)Indicatio ns:HTN, goal below 140/90 TAKE 1 TABLET BY MOUTH EVERY DAY 90 Tablet 1 05/25/2022 Active Losartan Potassium 50 MG Oral Tablet (Cozaar)Indications :HTN, goal below 140/90 Take by mouth 1 Tablet in the morning. 90 Tablet 1 05/25/2022 Active Azithromycin 250 MG Oral Tablet (Zithromax) [...] DAY FOR 10 DAYS 0 08/05/2022 Active Dextromethorphan-gu aiFENesin (CORICIDIN HBP CONGESTION/COUGH) 10-200 MG CAPS Take by mouth. Every 4-6 hours as needed for cough 0 3 Discontinue d(Medicatio n List Clean Up) documented as of this encounter (statuses as of 11/07/2022) Active Problems Problem Noted Date Nontoxic single thyroid nodule 2 Occlusion and stenosis of right vertebra l artery 06/22/2022 Hyperlipidemia 06/22/2022 Hypomagnesemia 06/22/2022 Acute right ankle pain 05/01/2022 Allergic rhinitis 04/02/2022 Prediabetes 12/18/2021 Overview: Per Prediabetes protocol Peripheral vascular disease 10/16/2021 Thyroid nodule 10/16/2021 Gastro-esophageal reflux disease without esophagitis 10/16/2021 History of TIA (transient ischemic attac k) 03/29/2021 Overview: 09/2020 Vertebral artery stenosis, asymptomatic, right 03/29/2021 Insomnia 03/29/2021 Schatzki's ring 12/22/2020 Moderate episode of recurrent major depr essive disorder 06/19/2019 HTN, goal below 140/90 08/09/2017 Lumbar spinal stenosis 02/18/2017 Primary osteoarthritis of right knee Multiple thyroid nodules 09/09/2016 Rhinitis, nonallergic 03/30/2016 Urinary, incontinence, stress female [...] as of this encounter (statuses as of 11/07/2022) Resolved Problems Problem Noted Date Resolved Date Pulmonary hypertension 05/07/2017 1 Impaired fasting glucose 03/15/2017 018 Thyroid nodule 09/05/2016 01/07/2017 ETD (eustachian tube [...] as of this encounter (statuses as of 11/07/2022) Immunizations Name Administration Dates Next Due COVID-19 mRNA, LNP-s, No Pre serve, 2-Dose Series (Docstoc) 09/13/2021,12/16/2020,11/25/2020 Covid-19, Mrna, Lnp-s, Pf, B ivalent Booster, 30 Mcg, IM, 12 yrs and above (Docstoc) 08/14/2022 Pneumococcal Conjugate Vacc, 13 Valent (Prevnar) 09/21/2015 Pneumococcal Polysaccharide PPV23 (Pneumovax) 03/28/2017 Seasonal Influenza, Quadriva lent Hd (Fluzone Hd) 08/10/2022,06/20/2021 Seasonal Influenza, Quadriva lent, No Preserve, 6 Mons & Above, IM 07/28/2018,07/31/2017 Seasonal Influenza, Quadriva lent, No Preserve, Adjuvanted, 65+ Yrs, IM 08/12/2020 Seasonal Influenza, Quadriva lent, No Preserve, IM 07/21/2016,07/20/2015 Seasonal Influenza, Split, I IV3, With Preserve, Inj 08/17/2006,08/05/2003 Seasonal Influenza, Trivalen t, Adjuvanted, 65+ yrs 07/10/2019 TD - Tetanus/Diptheria (ADULT) 05/03/2004 0 05/03/2014 TDAP (age 10 and older)(Boostrix) 04/19/2018 documented [...] on file documented as of this encounter Last Filed Vital Signs Vital Sign Reading Time Taken Comments Blood Pressure 128/78 11/02/2022 9:00 AM EST Pulse 80 11/02/2022 9:00 AM EST Temperature 36.8 C (98.2 F) 11/02/2022 9:00 AM ES T Respiratory Rate 18 11/02/2022 9:00 AM EST Oxygen Saturation 94% 11/02/2022 9:00 AM EST Inhaled Oxygen Concentration - - Weight - - Height - - Body Mass Index - - documented in this encounter Progress Notes * Jonathan Bustillo, SELENE - 11/02/2022 2:12 PM EST [facility] Graduation Progress Episode Start Date: Noted: 04/17/2022 [facility]: Focused Care Management (3-9 months) Active [facility] Care Team Data deleted Updated: 11/02/2022 2:11 PM Active [facility] In-Home Services No data was found Additional Information: none Updated: 11/02/2022 2:11 PM Clinical Utilization No unanticipated acute utilization for a minimum of 2 months: Met No home-based advanced interventions for a minimum of 1 month: Met Additional Information: 08/04/22 ED for right sided chest pain-dx with pneumonia. Sent home with antibiotics Updated: 11/02/2022 2:11 PM Self-Management and Exacerbation Planning "Red Flags" identified with EHR documentation, patient education, and teach back: Met "Self-Management Plan" identified with EHR documentation, patient education, and teach back: Met "Exacerbation Plan" identified with EHR documentation, patient education, and teach back: Met Additional Information: No data was found Updated: 11/02/2022 2:11 PM Social Determinants of Health SDoH identified, documented in the EHR and solution(s) in place: Met Additional Information: Patient has adequate support in the home. Lives with spouse, daughter and 2grandsons who provide assistance with shopping, transportation, meal prep and advocate for her needs. Updated: 11/02/2022 2:11 PM Patient-Centered Communication ACP Activity: Met ACP Note: Met Advanced Directive documents up-to-date and scanned in the EHR: Met Additional Information: No data was found Updated: 11/02/2022 2:11 PM Care Coordination Remote Patient Monitoring in place and transition communicated: Not Started Medication List up-to-date and adequate supply in the home: Met PCP and relevant Specialty appointments scheduled: Met Additional Information: No data was found Updated: 11/02/2022 2:12 PM * Jonathan Bustillo RN - 11/02/2022 12:53 PM EST [facility] [employer] Driver Monthly Visit Date: 11/02/2022 Time: 12:56 PM Name: Jayla Hayes : 1945 Situation: Patient being seen for routine monthly visit. Background: Past medical hx includes: severe COPD,VIRA, HTN, PVD, IBS, GERD, TIA, depression, obesity. Uses oxygen 2L @ HS. Patient recently hospitalized for pneumonia/ copd exacerbation 06/2022. states that she had developed a cough that worsened over a 3 day period. She presented to ED due to increased sob and increased oxygen needs requiring oxygen during the daylight hours. Negative for covid. Diagnosed with acute onchronic respiratory failure, COPD exacerbation and community acquired pneumonia. She received IV antibiotics, steroids and was discharged home 04/10 to continue with 5 more days of augmentin which she did complete. Patient was also instructed to use oxygen @ 2L for activity and at HS. Assessment: Recently to see GI specialist. Taken off omeprazole and started on pantoprazole. has only been on 3 days so too soon if better results with bloating related to IBS. Copd- pts breathing at baseline. 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 Up to date on flu, pneumonia and covid vaccines. On 3 x week azithromycin for pneumonia prevention. Taking medications as ordered. R foot/ankle pain-foot/ankle feeling much better. Seeing podiatry and getting fitted for brace to help with support. No other concerns or problems. Pt has follow up scheduled with pcp and specialists. Pulmonology next month and will get updated PFTs. No recent utilization ED or acute. Discussed opcm referral for continued follow up for copd. Agreeable to graduation from [facility]. Recommendation: Continue all medications as ordered/reviewed. Follow nebulizer treatments with flutter valve x 10 when available Orders placed for new flutter valve Oxygen at 2LPM with activity and at HS Azithromycin 250mg MWF Magnesium bid Keep follow up appts with pcp and specialties. Physical Exam: BP 128/78 (BP Site: Left Arm, BP Position: Sitting, BP Cuff Size: Large) | Pulse 80 | Temp 36.8 C(98.2 F) (Infrared ) | Resp 18 | SpO2 94% Pain 0 Physical Exam Cardiovascular: Rate and Rhythm: Normal rate. Pulses: Normal pulses. Pulmonary: Effort: Pulmonary effort is normal. Breath sounds: Normal breath sounds. Abdominal: General: Bowel sounds are normal. Palpations: Abdomen is soft. Musculoskeletal: Right lower leg: No edema. Left lower leg: No edema. Skin: General: Skin is warm and dry. Neurological: Mental Status: She is alert and oriented to person, place, and time. Psychiatric: Mood and Affect: Mood normal. Behavior: Behavior normal. Thought Content: Thought content normal. Judgment: Judgment normal. Problems/Symptoms: Review of Systems Constitutional: Negative. HENT: Negative. Eyes: Negative. Respiratory: Negative. Cardiovascular: Negative. Gastrointestinal: Negative. Endocrine: Negative. Genitourinary: Negative. Musculoskeletal: Negative. Skin: Negative. Allergic/Immunologic: Negative. Neurological: Negative. Hematological: Negative. Psychiatric/Behavioral: Negative. Medication Reconciliation: (See medication list) Does patient take medications as ordered: Yes Patient Well Being: PHQ2/9: No questionnaires available. MAHC-10 Completed this Visit: No. Routine visit and No falls since last visit Advanced Care Planning: Living Will. Reinforcement/Education: COPD: Pt instructed to: -Call with increased SOB, wheezing, chest tightness, increased cough, increased sputum with change in color or consistency and fever. -Wash hands often -Drink plenty of fluids -Use inhalers as directed, do not stop or skip doses -Avoid stress -Rest when tired or SOB -Avoid triggers -Clean inhalers once a week Educated on home safety: Create a fall proof home o Clear floors of clutter, loose wires, throw rugs, and cords. o Make sure halls, stairways, and entrances are well lit. o Install a nightlight in your bedroom, hallway and bathroom. o Install grab bars or handrails in the bathroom and on stairs. o Use a non-skid tub/shower mat. o Avoid climbing on a chair; instead use a step stool with a high handrail. o Keep sidewalks and steps in good repair o Keep steps and sidewalks free of snow and ice. Using aids to support and prevent falls o If you have poor balance or have fallen in the past, consider additional support such as a cane or walker. o Use a cane with good support and that is the proper length for you. o Use a walker if a cane doesnt provide enough support. Avoid medications that increase the risk of falling by causing dizziness, change in sensation or slowed reflexes. o Certain medicines may cause falls - blood pressure pills, heart medicines, water pills, or sleeping pills. o Be sure to understand each medicine that you are taking and any side effects that may occur. Improve your balance and flexibility with muscle strengthening exercises. Ask your health care provider for some exercises that will be right for you. Reinforced safety education and fall prevention. and Reinforced medication regimen. Timing., Dosing. and Purspose. Home Interventions Provided: Reinforced current Plan of Care, including self-management and medication regimen Patient Needs to Remember: Call pcp with any new or worsening health concerns or problems, red flag symptoms. . Referrals Needed: NA Follow Up: Is there cellular connectivity/connectivity in the home? No Does the patient have internet in the home? Yes Patient encouraged to call the intake phone number for all urgent but not emergent issues. Is the patient new to [facility] within the last 30 days? No, Assess appropriateness for upcoming telehealth visits. Cancel telehealth visits & schedule home visit with care state farm agent team member(s)as indicated. Provider is in agreement with Plan of Care: Yes Jonathan Bustillo RN 11/02/2022 12:56 PM documented in this encounter Miscellaneous Notes * Addendum Note - Jonathan Bustillo RN - 11/07/2022 9:50 AM ESTAddended by: JONATHAN BUSTILLO on: 11/07/2022 09:50 AM Modules accepted: Orders documented in this encounter Plan of Treatment Upcoming Encounters Date Type Specialty Care Team Description 04/16/2023 Office Visit Family Medicine Sony, Yariel Perea MD [address] [place] [address] [place] [id number] Scheduled Procedures Name Priority Associated Diagnoses Date/Ti me COLONOSCOPY FLEXIBLE PROXIMAL DIAGNOSTIC Recall History of colon polyps Scheduled Referrals Name Type Priority Associated Diagnoses Orde r Schedule POPULATION HEALTH REFERRAL OP Referral Within 10 days (routine) COPD, severe (HCC) Ordered: 11/07/2022 Health Maintenance Due Date Last Done Comments Alb / Creat Ratio 1961 Alpha-1 Antitrypsin 1961 Hepatitis C Screening 1961 Zoster Vaccines (1 of 2) 1993 *ADVANCE DIRECTIVE NOT ON FILE 12/23/2015 Depression Screening, Annual for Pts 12 and Over 08/11/2020 08/11/2019 DXA Scan 08/17/2022 08/17/2015 HgA1C 11/28/2022 11/28/2021, 12/06, 03/19/2017 GFR - Renal Function 06/19/2023 06/19/2022, 11/28/2021, 06/06/2021, Additional history exists O2 ASSESSMENT COMPLETED IN PAST YEAR FOR COPD 11/02/2023 11/02/2022 COLONOSCOPY-EVERY 5 YRS AGES 18-100 08/28/2026 08/28/2021, [...] Not on filedocumented as of this encounter Visit Diagnoses Diagnosis COPD, severe (HCC)- Primary Chronic airway obstruction, not elsewhere classified documented in this encounter Care Teams Manager Primary Care Relationship Specialty Start Date End Date Yariel Cardoza MD [address] [place] [address] [place] [id number] PCP - General Family Medicine 12/01/18 documented as of this encounter
--- OUTSIDE RECORDS SUMMARY | 2023-06-07 07:35 | External Medical Summary | Summary of Care ---
Author Name Unknown Organization [place] [address] Care Team Providers Care Leaded Glass Installer Name Role Phone Yariel Cardoza MD Primary Care Provide r Reason for Visit * Reason Onset Date Comments case management 11/09/2022 Encounter Details Date Type Department Care Team Description 11/09/2022 All Source Intelligence TechnicianParachute Mender Medicine [address] [id number] Mariola Mariee, RN [address] [place] [address] Medical home patient encounter*; COPD, severe (HCC); Gastro-esophageal reflux disease without esophagitis; HTN, goal below 140/90; Irritable bowel syndrome with constipation; Slow transit constipation; Mixed incontinence urge and stress (male)(female) Allergies Active Allergy Reactions Severity Noted Date Comments Adhesive Tape 06/29/2003 Sensitive to Naproxen Hives 05/28/2015 Ivp Dye Hives 08/20/2000 Latex Other (Please comment) 01/05/2015 Contact rash Ibuprofen Rash 01/05/2015 documented as of this encounter (statuses as of 11/09/2022) Medications Medication Sig Dispensed Refills Start Date [...] . For 5 days 0 Active Nystatin 730898 UNIT/GM External Powder (Nystop)Indications:C andidal skin infection [...] 05/11/2022 Active Atenolol 25 MG Oral Tablet (Tenormin)Indications :HTN, goal below 140/90 TAKE 1 TABLET BY MOUTH EVERY DAY 90 Tablet 1 05/25/2022 Active Losartan Potassium 50 MG Oral Tablet (Cozaar)Indications:H TN, goal below 140/90 Take by mouth 1 [...] DAY FOR 10 DAYS 0 08/05/2022 Active documented as of this encounter (statuses as of 11/09/2022) Active Problems Problem Noted Date Nontoxic single [...] as of this encounter (statuses as of 11/09/2022) Resolved Problems Problem Noted Date Resolved Date [...] as of this encounter (statuses as of 11/09/2022) Immunizations Name Administration Dates Next Due COVID-19 mRNA, LNP-s, No Pre serve, 2-Dose Series ([employer]) 09/13/2021,12/16/2020,11/25/2020 Covid-19, Mrna, Lnp-s, Pf, B ivalent Booster, 30 Mcg, IM, 12 yrs and above ([employer]) 08/14/2022 Pneumococcal Conjugate Vacc, 13 Valent (Prevnar) [...] on file documented as of this encounter Progress Notes * Mariola Mariee RN - 11/09/2022 2:13 PM EST All Source Intelligence Technician Progress Note: Date: 11/09/22 Current Patient Tier: 4 Patient graduated from [facility] 11/02/22. Assessment: Case Management Assessment Does this patient have COVID-19: NO Is this call for a hospital, skilled nursing or rehab facility discharge to home? No Review of Current goals: Connected with patient's spouse via telephone. Spouse, Alverto, noted the following: Alert, oriented, pleasant. Reports he and patient have been 61 years, and they know each other well. Patient lives with spouse, daughter, grandson, and one dog - in 2 mobile homes hooked together, with a room built in between the two. 5 steps to enter by the front porch, no steps to enter by the back door - which they use most often. [id number] lives just across the street, and is available to help if needed. Patient is not home again today. She went for an appointment to be fitted for a brace for her foot/ankle, and then was going to get her hair done. Daughter took her. Patient is fairly independent. Needs some assist with IADL's, like shopping and transportation. She and daughter take turns cooking. He reports patient's overall condition as "alright". Ambulates with cane. Denies any falls. Denies chest pain or leg edema. Does reports swelling of abdomen, due to fluid, spouse believes. Has hxof IBS with constipation. Denies shortness of breath at rest. Does have dyspnea with exertion. Now only using home oxygen at bedtime, and if needed during the day. Does have portable tanks, which shetakes with her when leaving home, just in case. Using nebulizer and inhaler as ordered. Occasional "normal" cough - "but I think its more of a clearing the throat thing". Former smoker. Spouse reports he is the one who got her to quit smoking. Denies diarrhea. Long standing urinary incontinence. Wears pads "all the time". Hx of back/knee pain - but patient hasn't been complaining of that. Only complains of pain in stomach and foot/ankle. Occasional nausea/vomiting. Most recent was "just the other night". "Seems like she has to carry a bucket around with her sometimes." Has tramadol to manage pain. Denies dizziness or headaches. Denies issues with sleep. Patient manages her own medications. Fills her pill box weekly. Confirmed pharmacy of choice as [facility] in [place]. Wears reading glasses. Advance directives already completed, copy available in chart. Spouse, Holden Tita Hayes, listed as decision maker. Alverto mcbrideses about never knowing lab/test results. Informed him of MyChart. Reports they have 4 computers in the home. "I have never heard of that. I didn't know about that." Told him next he, or patient comes in, the front desk supervisor can give him directions on how to get it and temporary password. He would like to do that. Confirmed upcoming appointment. Reports they are thinking about changing doctors. Asked him to let us know if they do, but in the meantime, if there is anything I trevin, just call. Spouse wrote my phone number down. Discussed the following patient-centered CM goals with the patient during this discussion: -SAFETY: Prevent falls or injuries -Status: On Track - LYN already did home safety assessment when active with [facility]. Using cane with all ambulation. Denies recent falls. Pain in foot/ankle - was going to day to be fitted fora brace. -Prevention: Prevent admission/readmission -Status: On Track - graduated from [facility] 11/02/22. Last ER visits was one in July 2022, and one in June 2022. Last inpatient stay was April 2022. Receptive to participation with case management. Last PCP appointment was June 2022. -Pain: Patient will have pain well managed -Status: On Track - hx of lumbar, knee, and ankle pain. Spouse reports patient hasn't been complaining of any of those. Only complaints are of stomach/abdominal pain and foot pain. Foot/ankle. Daughter took patient today, to be fitted for a brace for that foot/ankle. Patient has tramadol to assist w ith pain management. He is unsure of cause of stomach/abdominal pain. Plan for Future Contacts: Plan to follow up next week to check progress on the following goals/needs - med rec, brace for foot/ankle, nausea/vomiting, pain management, stomach bloating, shortness of breath, bowels moving, MyChart. Noting that contacts from the following parties will occur this week: N/A as additional contacts per workflow. Advancement/Closure Plan: CM Plan : Keep patient at current Tier with reassessment per workflow. Patient provided CM contact information and encouraged to call with any changes in condition. SNP Member? No Does this patient qualify for an annual wellness visit? No PCP Notified of enrollment in CM/HM program: Yes Is Provider in agreement with POC? Yes Mariola Mariee RN Outpatient Case Management documented in this encounter Plan of Treatment Upcoming Encounters Date Type Specialty Care Team Description 04/16/2023 Office Visit Family Medicine Yariel Cardoza MD [address] [place] [address] [place] [address] Scheduled Procedures Name Priority [...] as of this encounter Visit Diagnoses Diagnosis Medical home patient encounter- Primary Other specified examination COPD, severe (HCC) Chronic airway obstruction, not elsewhere classified Gastro-esophageal reflux disease without esophagitis Esophageal reflux HTN, goal below 140/90 Unspecified essential hypertension Irritable bowel syndrome with constipation Irritable bowel syndrome Slow transit constipation Mixed incontinence urge and stress (male)(female) documented in this encounter Care Teams Leaded Glass Installer Relationship Specialty Start Date End Date Yariel Cardoza MD [address] [place] [address] [place] [address] PCP - General Family Medicine 12/01/18 documented as of this encounter
--- OUTSIDE RECORDS SUMMARY | 2023-06-07 07:35 | External Medical Summary | Summary of Care ---
Author Name Unknown Organization [place] [address] Care Team Providers Care Vibration Technician Name Role Phone Yariel Cardoza MD Primary Care Provide r Reason for Visit * Reason Comments [facility]: Maintenance Encounter Details Date Type Department Care Team Description 11/02/2022 Home Visit [facility], [facility] [address] [place] [address] Corrina Layne RN [address] [facility] [place] [address] Allergies Active Allergy Reactions Severity Noted Date Comments Adhesive Tape 06/29/2003 Sensitive to Naproxen Hives 05/28/2015 Ivp Dye Hives 08/20/2000 Latex Other (Please comment) 01/05/2015 Contact rash Ibuprofen Rash 01/05/2015 documented as of this encounter (statuses as of 11/02/2022) Medications Medication Sig Dispensed Refills Start Date End Date Status oxygen GASIndications:Hypo bryan Use 2 L/min(Oxygen) as directed continuous. 1 Each 0 02/18/2017 Active VENTOLIN HFA 108 (90 Base) MCG/ACT inhaler INHALE 2 PUFFS BY MOUTH EVERY 4 HOURS NEEDED FOR WHEEZING. 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 For 5 days 0 Active Nystatin 817671 UNIT/GM External Powder (Nystop)Indications :Candidal skin infection [...] as of this encounter (statuses as of 11/02/2022) Active Problems Problem Noted Date Nontoxic single [...] as of this encounter (statuses as of 11/02/2022) Resolved Problems Problem Noted Date Resolved Date [...] as of this encounter (statuses as of 11/02/2022) Immunizations Name Administration Dates Next Due COVID-19 mRNA, LNP-s, No Pre serve, 2-Dose Series ([employer]) 09/13/2021,12/16/2020,11/25/2020 Covid-19, Mrna, Lnp-s, Pf, B ivalent Booster, 30 Mcg, IM, 12 yrs and above ([employer]) 08/14/2022 Pneumococcal Conjugate Vacc, 13 Valent (Prevnar) [...] documented in this encounter Progress Notes * Corrina Layne, SELENE - 11/02/2022 2:12 PM EST [facility] Graduation Progress Episode Start Date: Noted: 04/17/2022 [facility]: Focused Care Management (3-9 months) Active [...] was found Updated: 11/02/2022 2:12 PM * Corrina Layne RN - 11/02/2022 12:53 PM EST [facility] Commercial Loan Reviewer Monthly Visit Date: 11/02/2022 Time: 12:56 PM [...] at baseline. Has regular follow ups with film developer. Up to date on flu, pneumonia and [...] up for copd. Agreeable to graduation from [facility]. Recommendation: Continue all medications as ordered/reviewed. [...] Patient Well Being: PHQ2/9: No questionnaires available. [facility]-10 Completed this Visit: No. Routine visit and [...] emergent issues. Is the patient new to [facility] within the last 30 days? No, Assess appropriateness for upcoming telehealth visits. Cancel telehealth visits & schedule home visit with care team leader/research psychologist(s)as indicated. Provider is in agreement with Plan of Care: Yes Corrina Layne RN 11/02/2022 12:56 PM documented in this encounter Plan of Treatment Upcoming Encounters Date Type Specialty Care Team Description 04/16/2023 Office Visit Family Medicine Yariel Cardoza MD [address] [place] [address] [place] [address] Scheduled Procedures Name Priority [...] ASSESSMENT COMPLETED IN PAST YEAR FOR COPD 08/10/2023 08/10/2022 COLONOSCOPY-EVERY 5 YRS AGES 18-100 08/28/2026 08/28/2021, [...] filedocumented as of this encounter Care Teams Vibration Technician Relationship Specialty Start Date End Date Yariel Cardoza MD [address] [place] [address] [place] [address] PCP - General Family Medicine 12/01/18 documented as of this encounter
--- OUTSIDE RECORDS SUMMARY | 2023-06-07 07:35 | External Medical Summary | Summary of Care ---
Author Name Unknown Organization [place] [address] Care Team Providers Care Traffic Personnel Supervisor Name Role Phone Yariel Cardoza MD Primary Care Provide r Reason for Visit * Reason Onset Date Comments Med Request 10/22/2022 Pre Cert/Prior Auth 10/22/2022 Amitriptylin e HCl 25 MG Oral Tablet (Elavil) Status Check 10/22/2022 Advice 10/22/2022 Encounter Details Date Type Department Care Team Description 10/22/2022 Telephone Family Medicine [address] [address] Yariel Cardoza MD [address] [place] [id number] Med Request; Pre Cert/Prior Auth (Amitript... Allergies Active Allergy Reactions Severity Noted Date Comments Adhesive Tape 06/29/2003 Sensitive to Naproxen Hives 05/28/2015 Ivp Dye Hives 08/20/2000 Latex Other (Please comment) 01/05/2015 Contact rash Ibuprofen Rash 01/05/2015 documented as of this encounter (statuses as of 11/01/2022) Medications Medication Sig Dispensed Refills Start Date End Date Status oxygen GASIndications:Hypoxi a Use 2 L/min(Oxygen) as directed continuous. 1 Each 0 02/18/2017 Active VENTOLIN HFA 108 (90 Base) MCG/ACT inhaler INHALE 2 PUFFS BY MOUTH EVERY 4 HOURS NEEDED FOR WHEEZING. 1 Inhaler 5 02/10/2018 Active umeclidinium-vilanter ol (ANORO ELLIPTA) 62.5-25 MCG/INH AEPBIndications:COPD Inhale by mouth 1 Puff daily . 0 Active Dextromethorphan-guai FENesin (CORICIDIN HBP CONGESTION/COUGH) 10-200 MG CAPS Take by mouth. Every 4-6 hours as needed for cough 0 Active Cholecalciferol 1000 units Capsule Take [...] . 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 l [...] as of this encounter (statuses as of 11/01/2022) Resolved Problems Problem Noted Date Resolved Date [...] as of this encounter (statuses as of 11/01/2022) Immunizations Name Administration Dates Next Due COVID-19 mRNA, LNP-s, No Pre serve, 2-Dose Series ([employer]) 09/13/2021,12/16/2020,11/25/2020 Covid-19, Mrna, Lnp-s, Pf, B ivalent Booster, 30 Mcg, IM, 12 yrs and above (Pfizer) 08/14/2022 Pneumococcal Conjugate Vacc, 13 Valent (Prevnar) [...] encounter Miscellaneous Notes * Telephone Encounter - MARIO Casas - 11/01/2022 10:42 AM EST Checked status of prior authorization for AMITRIPTYLINE HCL 25 MG TAB through PromptPA. Patient andpharmacy notified of approval. Approved until(if applicable): n/a Thank you, Bhavna Graham CPhT Cross Tie Cutter Lead [facility] 11/01/2022,10:42 AM * Telephone Encounter - Flaquita Uriarte [facility] - 10/31/2022 11:37 AM EST Reached out to [facility] via teams to provide updated OV note. Please continue to follow up on this and route back to the [facility] pool if no decision is made by the insurance by 11/02, after clarifying with the pharmacy that the claim is still not processing. If PA is denied, please also route back to [facility] pool. Thank you, Flaquita Uriarte PharmD Staff Pharmacist [facility] 10/31/22 11:37 AM [phone] * Telephone Encounter - Yariel Cardoza MD - 10/31/2022 11:18 AM EST Addended OV from 06/22/2022 with the info * Telephone Encounter - Flaquita Uriarte [facility] - 10/31/2022 9:36 AM EST [facility] needs to see "medical record documentation that the prescriber has indicated the benefits of the requested high risk medication outweigh the risks for the patient" Please advise if this documentation is available. Thank you, Flaquita Uriarte PharmD Staff Pharmacist [facility] 10/31/22 9:44 AM [phone] * Telephone Encounter - Manuela Donahue CPhT - 10/30/2022 6:57 PM EST Patients insurance would like to inform the office that Amitriptyline HCl 25 MG Oral Tablet (Elavil) is requiring additional information: Do not see medical record documentation that the prescriber has indicated the benefits of the requested high risk medication outweigh the risks for the patient AND. Prior authorization entered in PromptPA at [facility]. EOC# EOC [id number] Please fax to [phone] before 10/31/2022. Thank you, Manuela Donahue Quality Control Technician [facility] 10/30/2022, 6:57 PM * Telephone Encounter - VIRA Blount - 10/29/2022 9:44 AM EST Krystal from [facility] called advising they have begun an appeal for the denial of medication on behalf of pt. Ref# [id number] for the denial. There may be some incoming requests for information that will require a 72 hr turn around. Internalfax provided, . * Telephone Encounter - Courtney Montiel LPN - 10/26/2022 1:46 PM EST Addended office note faxed to [facility] at [phone] * Telephone Encounter - Yariel Cardoza MD - 10/25/2022 1:34 PM EST This is the first I have heard of her having difficulty getting her amitriptyline filled. I addended the office note from June that she needs it. * Telephone Encounter - VIRA Sommers - 10/25/2022 12:29 PM EST Patient calling in to check on the status of previous message. * Telephone Encounter - Salma Alaniz LPN - 10/25/2022 11:52 AM EST Pt saw Dr. Cardoza on 06/22/22. We don't have any recent documentation of the amitriptyline. Pt doesn't have another appt until April. Is it too late to addend your note? * Telephone Encounter - Enriqueta Jimenez CPhT - 10/24/2022 5:31 PM EST Patient only has 1 amitripttline left and patient stated her insurance company isn't going to pay for it. Insurance company told patient they called doctor 3 times and didn't get a response. Please call patient back at [phone]. Thank you, Enriqueta Jimenez CPhT Fisher [facility] 10/24/2022,5:33 PM * Telephone Encounter - Deborah Fischer CPhT - 10/24/2022 9:18 AM EST p calling to check on status of PA. [facility] needs infor by 3pm today. Thank you, Deborah Fischer Fisher II [employer] 10/24/2022,9:18 AM * Telephone Encounter - MARIO Ashley - 10/23/2022 10:37 AM EST [facility] calling to check on status of PA Thank you, Mallory Castillo, Quality Control Technician [employer] 10/23/2022,10:37 AM * Telephone Encounter - Nerissa Tate RPh - 10/23/2022 10:16 AM EST Insurance requiring additional information for prior auth pending for Amitriptyline: Do not see medical record documentation that the prescriber has indicated the benefits of the requested high risk medication outweigh the risks for the patient Do not see medical record documentation that the prescriber discussed the risk and potential side effects of the requested high risk medication with the patient. (In the elderly population, tricyclic antidepressants should be used with caution due to adverse effects including strong anticholinergic properties, increased risk of falls, sedation, and orthostatic hypotension.) To monitor utilization of TCAs, [facility] is requiring Prior Authorization of those drugs in this class that may have a significant side effect profile. Forwarding to provider to advise. Thank you, Nerissa Tate PharmD Clinical Pharmacist [facility] [phone] 10/23/2022, 10:18 AM * Telephone Encounter - MARIO Casas - 10/23/2022 9:21 AM EST EOC: [id number] This is a request for additional information. Per insurance, they need the following additional information: Do not see medical record documentation that the prescriber has indicated the benefits of the requested high risk medication outweigh the risks for the patient AND Do not see medical record documentation that the prescriber discussed the risk and potential side effects of the requested high risk medication with the patient. In the elderly population, tricyclic antidepressants (TCAs) should be used with caution due to adverse effects including strong anticholinergic properties, increased risk of falls, sedation, and orthostatic hypotension. To monitor utilization of TCAs, [facility] is requiring Prior Authorization of those drugs in this class that may have a significant side effect profile. Please advise. Thank you, Bhavna Graham CPhT Cross Tie Cutter Lead [facility] 10/23/2022,9:21 AM * Telephone Encounter - LIMA Guajardo - 10/23/2022 8:33 AM EST [facility] is calling to ask for clinical documentation for review. Information would need to be faxed [phone]. They would need this before 12:00 on 10/24/22. Thank you, Claudia Elmore Quality Control Technician [facility] 10/23/2022,8:34 AM * Telephone Encounter - MARIO Casas - 10/22/2022 10:00 AM EST Submitted information in previous note via [employer] (EOC: [id number]).. Awaiting payer response. We will follow-up with insurance starting 10/23. Per [facility] request, if no decision is received from insurance by 10/25, we will route back to the [facility] after clarifying with the pharmacy that the claim is still not processing. Thank you, Bhavna Graham [facility] Cross Tie Cutter Lead [facility] 10/22/2022,10:00 AM * Telephone Encounter - Nerissa Tate, [facility] - 10/22/2022 9:41 AM EST As per 05/07/22 percet/prior auth approval, Amitriptyline 25 mg is approved from 05/01/22 to 11/01/22. Placed call to pharmacy to verify med is being run through PACE. Pharmacy states pt no longer has PACE as eligibility search did not bring up PACE. Confirmed this with pt. Please submit PA. Include the following documentation: 06/22/2022 OV with provider 10/16/2021 OV with provider 06/19/2019 OV with provider 07/10/2019 Telephone encounter with [facility] Please copy and paste the following information into PA form: Pt stable on medication since 06/19/2019 What other drugs is there medical record documentation of therapeutic failure on, intolerance to, or contraindication to for this condition? 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 If PA is denied, please also route back to [facility]. Thank you, Nerissa Tate PharmD Clinical Pharmacist [facility]pharm[facility] [phone] 10/22/2022, 9:45 AM * Telephone Encounter - MARIO Casas - 10/22/2022 9:02 AM EST Amitriptyline HCl 25 MG Oral Tablet (Elavil) This is a new PA request. Upon review of this prior authorization request, I verified this request is appropriate. This is prescribed by a department for which Telepharmacy is authorized to review prior authorizations This is not a duplicate encounter regarding the same prior authorization The patient is planning to use insurance The insurance information listed in previous note is correct and the plan that is requiring prior authorization The insurance does not cover either brand or generic forms of this script as written without prior authorization The insurance does not cover any NDCs of this script without prior authorization RX Estimate tool confirms this script needs prior authorization This PA is for [employer] but a PA was completed through [facility]ACE back in April and was approved. From TE 07/28/2022, pharmacy asked if it was OK to fill using discount card, not sure if "Contacted [facility] pharmacy and Amitriptyline is approved and can be picked up tomorrow 08/03/22" means discount card is approved for use or if PA was completed. Found no further PA information in chart. Of note, there is nothing currently pending in [facility] for this request. Please advise how to proceed. Thank you, Bhavna Graham CPhT Cross Tie Cutter Lead [facility] 10/22/2022,9:02 AM * Telephone Encounter - Radha Andersen CPhT - 10/22/2022 8:37 AM EST Pt is out of medication, asking high priority. Pt calling to inform doctor that the patient's insurance will not pay for this medication without acompleted prior authorization. Did confirm this information with the pharmacy. Pt's current insurance information is as follows: Patient name: Jayla Hayes ID number: [id number] BIN number: [id number] N number: [id number] Group number: [id number] Subscriber name: Jayla Hayes Primary or Secondary Insurance:Primary Medication: Amitriptyline HCl 25 MG Oral Tablet (Elavil) Reason for Request: Prior Auth Pharmacy and phone number: [id number] [id number] [facility] [phone] Rx plan and phone number: [facility] [phone] What alternative medications does the pharmacy have in stock?: N/A Thank you, Radha Andersen Quality Control Technician [facility] 10/22/2022,8:43 AM documented in this encounter Plan of Treatment Upcoming Encounters Date Type Specialty Care Team Description 11/02/2022 Home Visit [facility] Corrina Layne RN [address] [place] [address] [place] [id number] 04/16/2023 Office Visit Family Medicine Yariel Cardoza MD [address] [place] [address] [place] [id number] Scheduled Procedures Name Priority Associated Diagnoses Date/Ti [...] filedocumented as of this encounter Care Teams Traffic Personnel Supervisor Relationship Specialty Start Date End Date Yariel Cardoza MD [address] [place] [address] [place] [id number] PCP - General Family Medicine 12/01/18 documented as of this encounter
--- OUTSIDE RECORDS SUMMARY | 2023-06-07 07:35 | External Medical Summary | Summary of Care ---
Author Name Unknown Organization [facility] Address [address] [facility] [address] Phone [phone] Care Team Providers Care Phosphoric Acid Operator Name Role Phone Leanne Cardoza MD Primary Care Provide r Reason for Visit * Reason Comments eRx-Medication Refill Encounter Details Date Type Department Care Team Description 12/15/2022 Refill Family Medicine [address] [place] [address] Leanne Cardoza MD [address] [place] [address] [place] Pedro[place] [id number] Allergies Active Allergy Reactions Severity Noted Date Comments Adhesive Tape 06/29/2003 Sensitive to Naproxen Hives 05/28/2015 Ivp Dye Hives 08/20/2000 Latex Other (Please comment) 01/05/2015 Contact rash Ibuprofen Rash 01/05/2015 documented as of this encounter (statuses as of 12/17/2022) Medications Medication Sig Dispensed Refills Start Date End Date Status oxygen GASIndications:Hypo bryan Use 2 L/min(Oxygen) as directed continuous. 1 Each 0 7 Active VENTOLIN HFA 108 (90 Base) MCG/ACT inhaler INHALE 2 PUFFS BY MOUTH EVERY 4 HOURS NEEDED FOR WHEEZING. 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 0 Active Cholecalciferol 1000 units Capsule Take 2,000 Units by mouth daily. 0 Active albuterol-ipratropi um (DUONEB) 2.5-0.5 MG/3ML nebulizer solutionIndications :COPD, severe (HCC) INHALE 3 MLS VIA NEBULIZER EVERY 4 HOURS NEEDED FOR COUGH, SHORTNESS OF BREATH OR WHEEZING. 360 mL 1 0 Active Meclizine HCl 25 MG Oral Tablet (Antivert) TAKE 1 TABLET BY MOUTH ONCE EVERY 6 HOURS NEEDED FOR DIZZINESS/VERT IGO 10 Tab 0 1 Active Bisacodyl 5 MG Oral Tablet Delayed [...] as needed for Cough. 30 Capsule 1 1 Active Zoster Vac Recomb Adjuvanted 50 MCG/0.5ML Intramuscular Suspension Reconstituted (Shingrix)Indicatio ns:Need for vaccination for zoster Inject 0.5 mL into a large muscle now and repeat dose in 60 to 180 days 1 Each 0 2 Active Budesonide 0.5 MG/2ML Inhalation Suspension (Pulmicort)Indicati ons:COPD, severe (HCC) INHALE ONE UNIT DOSE VIAL VIA NEBULIZER TWO TIMES A DAY. 120 mL 5 2 Active Omeprazole 20 MG Oral Capsule Delayed Release (PriLOSEC)Indicatio ns:Gastroesophageal reflux disease without esophagitis TAKE 2 CAPSULES BY MOUTH EVERY DAY 180 Capsule 3 2 Active Atorvastatin Calcium 40 MG Oral Tablet (Lipitor) TAKE 1 TABLET BY MOUTH EVERY DAY 90 Tablet 3 2 Active Dicyclomine HCl 10 MG Oral Capsule (Bentyl)Indications :Irritable bowel syndrome with both constipation and diarrhea TAKE ONE CAPSULE BY MOUTH 4 TIMES DAILY NEEDED FOR ABDOMINAL PAIN, CRAMPING 360 Capsule 1 2 Active traMADol HCl 50 MG Oral Tablet (Ultram) 50 mg . 0 2 Active Nystatin 926717 UNIT/GM External Powder (Nystop)Indications :Candidal skin infection APPLY TOPICALLY TO AFFECTED AREA 3 TIMES A DAY. 60 g 1 2 Active Furosemide 40 MG Oral Tablet (Lasix)Indications: Bilateral lower extremity edema Take by mouth 1 Tablet in the morning. As needed for swelling or fluid accumulation. 30 Tablet 0 2 Active Clopidogrel Bisulfate 75 MG Oral Tablet (pLAVix)Indications :Stenosis of right vertebral artery,TIA (transient ischemic attack) TAKE 1 TABLET BY MOUTH EVERY DAY 90 Tablet 2 2 Active Azithromycin 250 MG Oral Tablet (Zithromax) Take by mouth 250 mg daily . MWF only 0 2 Active Ondansetron 4 MG Oral Tablet Disintegrating (Zofran) PLACE 1 TABLET ON TONGUE EVERY 8 HOURS NEEDED FOR NAUSEA. 30 Tablet 0 2 Active Magnesium Oxide 500 MG Oral Tablet Take by mouth 1 Tablet in the morning AND 1 Tablet before bedtime. 180 Tablet 1 2 Active Amitriptyline HCl 25 MG Oral Tablet (Elavil) TAKE 1 TABLET BY MOUTH EVERYDAY AT BEDTIME 90 Tablet 3 2 Active Cefdinir 300 MG Oral Capsule (Omnicef) TAKE 1 CAPSULE BY MOUTH TWICE A DAY FOR 10 DAYS 0 2 Active Atenolol 25 MG Oral Tablet (Tenormin)Indicatio ns:HTN, goal below 140/90 TAKE 1 TABLET BY MOUTH EVERY DAY 90 Tablet 1 3 Active Losartan Potassium 50 MG Oral Tablet (Cozaar)Indications :HTN, goal below 140/90 TAKE 1 TABLET BY MOUTH EVERY DAY IN THE MORNING 90 Tablet 2 3 Active hydroCHLOROthiazide 25 MG Oral Tablet (Hydrodiuril) TAKE 1 TABLET BY MOUTH EVERY DAY IN THE MORNING 90 Tablet 2 3 Active Potassium Chloride ER 10 MEQ Oral Tablet Extended Release TAKE 1 TABLET BY MOUTH EVERY DAY 90 Tablet 1 3 Active Potassium Chloride ER 10 MEQ Oral Tablet Extended Release TAKE 1 TABLET BY MOUTH EVERY DAY 90 Tablet 3 2 12/18/19 23 Discontinued documented as of this encounter (statuses as of 12/17/2022) Active Problems Problem Noted Date Chronic respiratory [...] as of this encounter (statuses as of 12/17/2022) Resolved Problems Problem Noted Date Resolved Date [...] as of this encounter (statuses as of 12/17/2022) Immunizations Name Administration Dates Next Due COVID-19 mRNA, LNP-s, No Pre serve, 2-Dose Series ([email or web address]) 09/13/2021,12/16/2020,11/25/2020 Covid-19, Mrna, Lnp-s, Pf, B ivalent Booster, 30 Mcg, IM, 12 yrs and above ([email or web address]) 08/14/2022 Pneumococcal Conjugate Vacc, 13 Valent (Prevnar) [...] encounter Miscellaneous Notes * Telephone Encounter - Kassidy Archuleta RPh - 12/17/2022 3:39 PM EDTSigned Prescriptions: Disp Refills Potassium Chloride ER 10 MEQ Oral Tablet E*90 Tab*1 Sig: TAKE 1 TABLET BY MOUTH EVERY DAYAuthorizing Provider: LEANNE CARDOZA User: KASSIDY ARCHULETA documented in this encounter Plan of Treatment Upcoming Encounters Date Type Specialty Care Team Description 04/16/2023 Office Visit Family Medicine Leanne Cardoza MD [address] [place] [address] [place] [address] Scheduled Procedures Name Priority [...] filedocumented as of this encounter Care Teams Phosphoric Acid Operator Relationship Specialty Start Date End Date Leanne Cardoza MD [address] [place] [address] [place] [phone] PCP - General Family Medicine 12/01/18 documented as of this encounter
--- OUTSIDE RECORDS SUMMARY | 2023-06-07 07:35 | External Medical Summary | Summary of Care ---
Author Name Unknown Organization [facility] Address [address] [facility] [place] [address] Phone [phone] Care Team Providers Care [employer] Supervisor Name Role Phone Yariel Cardoza MD Primary Care Provide r Encounter Details Date Type Department Care Team Description 12/24/2022 Orders Only Family Medicine [address] [address] Yariel Cardoza MD [address] [place] [address] [place], [place] [phone] Allergies Active Allergy Reactions Severity Noted Date Comments Adhesive Tape 06/29/2003 Sensitive to Naproxen Hives 05/28/2015 Ivp Dye Hives 08/20/2000 Latex Other (Please comment) 01/05/2015 Contact rash Ibuprofen Rash 01/05/2015 documented as of this encounter (statuses as of 12/24/2022) Medications Medication Sig Dispensed Refills Start Date [...] 50 mg . 0 04/01/2022 Active Nystatin 409853 UNIT/GM External Powder (Nystop)Indications:C andidal skin infection [...] as of this encounter (statuses as of 12/24/2022) Active Problems Problem Noted Date Chronic respiratory [...] as of this encounter (statuses as of 12/24/2022) Resolved Problems Problem Noted Date Resolved Date [...] as of this encounter (statuses as of 12/24/2022) Immunizations Name Administration Dates Next Due COVID-19 mRNA, LNP-s, No Pre serve, 2-Dose Series ([employer]) 09/13/2021,12/16/2020,11/25/2020 Covid-19, Mrna, Lnp-s, Pf, B ivalent Booster, 30 Mcg, IM, 12 yrs and above ([employer]) 08/14/2022 Pneumococcal Conjugate Vacc, 13 Valent (Prevnar) [...] on file documented as of this encounter Plan of Treatment Upcoming Encounters Date Type Specialty Care Team Description 04/16/2023 Office Visit Family Medicine Yariel Cardoza MD [address] [place] [address] [place] [phone] Scheduled Procedures Name Priority Associated Diagnoses Date/Ti me COLONOSCOPY FLEXIBLE PROXIMAL DIAGNOSTIC Recall History of colon polyps Health Maintenance Due Date Last Done Comments Albumin/Creatinine Ratio 1961 Alpha-1 Antitrypsin 1961 Hepatitis C Screening 1961 Zoster Vaccines (1 of 2) 1993 *ADVANCE DIRECTIVE NOT ON FILE 12/23/2015 Depression Screening, Annual for Pts 12 and Over 08/11/2020 08/11/2019 DXA Scan 08/17/2022 08/17/2015 HgA1C 11/28/2022 11/28/2021, 03/11/2020, 03/19/2017 GFR - Renal Function 06/19/2023 06/19/2022, [...] Not on filedocumented as of this encounter Procedures Procedure Name Priority Date/Time Associated Diagnosis Comments MAMMOGRAM SCREENING BILATERAL Routine 12/19/2022 documented in this encounter Results * MAMMOGRAM SCREENING BILATERAL (12/19/2022) Anatomical Region Laterality Modality Breast Bilateral Other 12/19/2022 Yariel Cardoza MD RAD MAMMOGRAP HY documented in this encounter Care Teams [employer] Supervisor Relationship Specialty Start Date End Date Yariel Cardoza MD [address] [place] [address] [place] [address] PCP - General Family Medicine 12/01/18 documented as of this encounter
--- OUTSIDE RECORDS SUMMARY | 2023-06-07 07:35 | External Medical Summary | Summary of Care ---
Author Name Unknown Organization [facility] Address [address] [place] [address] Phone [phone] Care Team Providers Care Guest Experience Specialist Name Role Phone Yariel Cardoza MD Primary Care Provide r Reason for Visit * Reason Comments Acute Encounter Details Date Type Department Care Team Description 12/11/2022 Office Visit Family Medicine [address] [address] Yariel Cardoza MD [address] [place] [address] [place] [address] Vulvovaginitis due to yeast*; Seborrheic keratosis; Candidiasis, intertrigo; Allergic rhinitis, unspecified seasonality, unspecified trigger; Vaginal bleeding Allergies Active Allergy Reactions Severity Noted Date Comments Adhesive Tape 06/29/2003 Sensitive to Naproxen Hives 05/28/2015 Ivp Dye Hives 08/20/2000 Latex Other (Please comment) 01/05/2015 Contact rash Ibuprofen Rash 01/05/2015 documented as of this encounter (statuses as of 12/11/2022) Medications Medication Sig Dispensed Refills Start Date End Date Status oxygen GASIndications:Hypo bryan Use 2 L/min(Oxygen) as directed continuous. 1 Each 0 02/18/2017 Active VENTOLIN HFA 108 (90 Base) MCG/ACT inhaler INHALE 2 PUFFS BY MOUTH EVERY 4 HOURS NEEDED FOR WHEEZING. 1 Inhaler 5 02/10/2018 Active umeclidinium-vilant lashon (ANORO ELLIPTA) 62.5-25 MCG/INH AEPBIndications:FINANCIAL LEGAL ASSISTANT D Inhale by mouth 1 Puff daily [...] 50 mg . 0 04/01/2022 Active Nystatin 499982 UNIT/GM External Powder (Nystop)Indications :Candidal skin infection [...] 08/05/2022 Active Atenolol 25 MG Oral Tablet (Tenormin)Indicatio [...] THE MORNING 90 Tablet 2 12/01/2022 Active Fluconazole 150 MG Oral Tablet (Diflucan)Indicatio ns:Vulvovaginitis due to yeast Take 1 Tablet by mouth once for 1 dose. 1 Tablet 1 12/11/2022 3 Active Amoxicillin-Pot Clavulanate 875-125 MG Oral Tablet (Augmentin)Indicati ons:Acute maxillary sinusitis, recurrence not specified Take 1 Tablet by mouth in the morning and 1 Tablet before bedtime. Do all this for 10 days. 20 Tablet 0 11/30/2022 3 Discontinue d(Patient preference/ discontinua tion) documented as of this encounter (statuses as of 12/11/2022) Active Problems Problem Noted Date Chronic respiratory [...] as of this encounter (statuses as of 12/11/2022) Resolved Problems Problem Noted Date Resolved Date [...] as of this encounter (statuses as of 12/11/2022) Immunizations Name Administration Dates Next Due COVID-19 mRNA, LNP-s, No Pre serve, 2-Dose Series ([employer]) 09/13/2021,12/16/2020,11/25/2020 Covid-19, Mrna, Lnp-s, Pf, B ivalent [...] Sign Reading Time Taken Comments Blood Pressure 122/78 12/11/2022 11:34 AM EST Pulse 60 12/11/2022 11:34 AM EST Temperature 36.6 C (97.8 F) 12/11/2022 11:[address] Respiratory Rate 16 12/11/2022 11:34 AM EST Oxygen Saturation - - Inhaled Oxygen Concentration - - Weight 92.1 kg (203 lb) 12/11/2022 11:34 AM EST Height - - Body Mass Index 38.36 06/22/2022 10:19 AM EDT documented in this encounter Progress Notes * Yariel Cardoza MD - 12/11/2022 11:41 AM EST Subjective: Jayla Hayes is a 77 year old female. Chief Complaint Patient presents with Acute HPI: Brief Clinical History Ms. Hayes is a 77 year old woman last seen in Family Medicine 1 week ago (11-30-22). She has h/o cardio respiratory failure, Chronic respiratory failure with hypoxia (HCC), COPD, COPD, severe (HCC), depression, Moderate episode of recurrent major depressive disorder (HCC), morbid obesity, Peripheralvascular disease (HCC), Severe obesity with body mass index (BMI) of 35.0 to 39.9 with serious comorbidity (HCC), and vascular disease. Yesterday noticed what she believes is vaginal bleeding with a few drops in the toilet after she went to the bathroom. Does not think it is from the rectum. Happened again this morning. Now has yellow discharge on the pad and also vaginal itching. Recently completed Augmentin for sinus infection. Has had hysterectomy. Has had scant blood on the pad she wears. Was seen 11/30/22 and treated with Augmentin for sinus infection. Is a little bit better but still having right ear pain and postnasal drainage. Takes some Benadryl occasionally but not taking any other allergy medication at this time. Has rash of groin folds that comes and goes. Has been worse since she took the antibiotic. Does have Nystatin powder that she has been using again. Has itchy areas behind her ears. Wears oxygen at night. Has a rough spot on the back of her left hand. Results for orders placed or performed in visit on 07/17/22 CHEMISTRY-OUTSIDE Result Value Ref Range CREATININE-OUTSIDE LAB 0.63 0.6 - 1.2 MG/DL EGFR-OUTSIDE LAB 85.9 ML/MIN/1.73M2 POTASSIUM-OUTSIDE LAB 3.8 3.5 - 5.1 MMOL/L GLUCOSE-OUTSIDE LAB 98 70 - 99 MG/DL HOURS FASTING TRIGLYCERIDES-OUTSIDE LAB CHOLESTEROL-OUTSIDE LAB HDL-OUTSIDE LAB CHOL/HDL RATIO-OUTSIDE LAB LDL (CALCULATED)-OUTSIDE LAB LDL (DIRECT MEASURE)-OUTSIDE LAB HEMOGLOBIN, F4X-LVIPDYT LAB PHOSPHORUS-OUTSIDE LAB PTH-OUTSIDE LAB MICROALBUMIN RATIO-OUTSIDE LAB PROTEIN, UA-OUTSIDE LAB NEGATIVE HEMOGLOBIN-OUTSIDE LAB 14.3 12 - 16 G/DL CHEMISTRY COMMENT-OUTSIDE LAB *Note: Due to a large number of results and/or encounters for the requested time period, some results have not been displayed. A complete set of results can be found in Results Review. PHM: Patient Active Problem List Diagnosis Code Slow transit constipation K59.01 IBS (irritable bowel syndrome) K58.9 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 Bilateral carpal tunnel syndrome G56.03 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 Dyslipidemia, goal LDL below 100 E78.5 COPD, severe ([facility]) J44.9 Severe obesity with body mass index (BMI) of 35.0 to 39.9 with serious comorbidity ([facility]) E66.01 Lumbar degenerative disc disease M51.36 Lumbar facet arthropathy M47.816 Urinary, incontinence, stress female N39.3 Rhinitis, nonallergic J31.0 Lumbar spinal stenosis M48.061 Primary osteoarthritis of right knee M17.11 HTN, goal below 140/90 I10 Moderate episode of recurrent major depressive disorder (HCC) F33.1 Schatzki's ring K22.2 History of TIA (transient ischemic attack) Z86.73 Vertebral artery stenosis, asymptomatic, right I65.01 Insomnia G47.00 Peripheral vascular disease (HCC) I73.9 Gastro-esophageal reflux disease without esophagitis K21.9 Prediabetes R73.03 Allergic rhinitis J30.9 Nontoxic single thyroid nodule E04.1 Hypomagnesemia E83.42 Chronic respiratory failure with hypoxia ([facility]) J96.11 Current Outpatient Medications Medication Sig Dispense Refill oxygen GAS Use 2 L/min(Oxygen) as directed continuous. 1 Each 0 VENTOLIN HFA 108 (90 Base) MCG/ACT inhaler INHALE 2 PUFFS BY MOUTH EVERY 4 HOURS NEEDED FOR WHEEZING. 1 Inhaler 5 umeclidinium-vilanterol (ANORO ELLIPTA) 62.5-25 MCG/INH AEPB Inhale by mouth 1 Puff daily . Cholecalciferol 1000 units Capsule Take 2,000 Units by mouth daily. albuterol-ipratropium (DUONEB) 2.5-0.5 MG/3ML nebulizer solution INHALE 3 MLS VIA NEBULIZER EVERY 4 HOURS NEEDED FOR COUGH, SHORTNESS OF BREATH OR WHEEZING. 360 mL 1 Meclizine HCl 25 MG Oral Tablet (Antivert) TAKE 1 TABLET BY MOUTH ONCE EVERY 6 HOURS NEEDED FOR DIZZINESS/VERTIGO 10 Tab 0 Bisacodyl 5 MG Oral Tablet Delayed Release (Dulcolax) Take by mouth 10 mg at bedtime . Naphazoline-Pheniramine 0.025-0.3 % Ophthalmic Solution (Naphcon-A) 1 Drop 3 times a day . Polyethylene Glycol 3350 17 GM/SCOOP Oral Powder (MiraLax) Take 17 g by mouth 2 times a day. Benzonatate 100 MG Oral Capsule (Tessalon Perles) Take 1 Capsule by mouth 3 times a day as needed for Cough. 30 Capsule 1 Zoster Vac Recomb Adjuvanted 50 MCG/0.5ML Intramuscular Suspension Reconstituted (Shingrix) Inject 0.5 mL into a large muscle now and repeat dose in 60 to 180 days 1 Each 0 Budesonide 0.5 MG/2ML Inhalation Suspension (Pulmicort) INHALE ONE UNIT DOSE VIAL VIA NEBULIZERTWO TIMES A DAY. 120 mL 5 Potassium Chloride ER 10 MEQ Oral Tablet Extended Release TAKE 1 TABLET BY MOUTH EVERY DAY 90 Tablet 3 Omeprazole 20 MG Oral Capsule Delayed Release (PriLOSEC) TAKE 2 CAPSULES BY MOUTH EVERY DAY 180Capsule 3 Atorvastatin Calcium 40 MG Oral Tablet (Lipitor) TAKE 1 TABLET BY MOUTH EVERY DAY 90 Tablet 3 Dicyclomine HCl 10 MG Oral Capsule (Bentyl) TAKE ONE CAPSULE BY MOUTH 4 TIMES DAILY NEEDED FOR ABDOMINAL PAIN, CRAMPING 360 Capsule 1 traMADol HCl 50 MG Oral Tablet (Ultram) 50 mg . Nystatin 583047 UNIT/GM External Powder (Nystop) APPLY TOPICALLY TO AFFECTED AREA 3 TIMES A DAY. 60 g 1 Furosemide 40 MG Oral Tablet (Lasix) Take by mouth 1 Tablet in the morning. As needed for swelling or fluid accumulation. 30 Tablet 0 Clopidogrel Bisulfate 75 MG Oral Tablet (pLAVix) TAKE 1 TABLET BY MOUTH EVERY DAY 90 Tablet 2 Azithromycin 250 MG Oral Tablet (Zithromax) Take by mouth 250 mg daily . MWF only Ondansetron 4 MG Oral Tablet Disintegrating (Zofran) PLACE 1 TABLET ON TONGUE EVERY 8 HOURS NEEDED FOR NAUSEA. 30 Tablet 0 Magnesium Oxide 500 MG Oral Tablet Take by mouth 1 Tablet in the morning AND 1 Tablet before bedtime. 180 Tablet 1 Amitriptyline HCl 25 MG Oral Tablet (Elavil) TAKE 1 TABLET BY MOUTH EVERYDAY AT BEDTIME 90 Tablet 3 Cefdinir 300 MG Oral Capsule (Omnicef) TAKE 1 CAPSULE BY MOUTH TWICE A DAY FOR 10 DAYS Atenolol 25 MG Oral Tablet (Tenormin) TAKE 1 TABLET BY MOUTH EVERY DAY 90 Tablet 1 Losartan Potassium 50 MG Oral Tablet (Cozaar) TAKE 1 TABLET BY MOUTH EVERY DAY IN THE MORNING 90 Tablet 2 hydroCHLOROthiazide 25 MG Oral Tablet (Hydrodiuril) TAKE 1 TABLET BY MOUTH EVERY DAY IN THE MORNING 90 Tablet 2 Fluconazole 150 MG Oral Tablet (Diflucan) Take 1 Tablet by mouth once for 1 dose. 1 Tablet 1 No current facility-administered medications for this visit. 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 BENIGN HYPERTENSION 01/28/2002 Bilateral carpal tunnel syndrome 07/20/2015 COPD (chronic obstructive pulmonary disease) ([facility]) COPD, severe ([facility]) 12/21/2015 COPD, severity to be determined ([facility]) 07/20/2015 Dyslipidemia, goal LDL below 100 10/16/2015 Dyslipidemia, goal LDL below 130 08/22/2015 [facility] HX-CARDIOVAS DIS NEC 01/28/2002 Generalized osteoarthritis 08/22/2015 GERD (gastroesophageal reflux disease) 07/20/2015 Hypertrophy of breast 08/31/2003 IBS (irritable bowel syndrome) 07/20/2015 Kidney disease, chronic, stage III (GFR 30-59 ml/min) ([facility]) 10/16/2015 Kidney stone Lumbar degenerative disc disease 02/06/2016 Lumbar facet arthropathy ([facility]) 02/06/2016 Lumbar spinal stenosis 02/18/2017 Mixed incontinence urge and stress (male)(female) 07/20/2015 Multiple thyroid nodules 09/09/2016 Obesity, Class II, BMI 35.0-39.9, with comorbidity (see actual BMI) 01/19/2016 Primary osteoarthritis of right knee 02/18/2017 Pulmonary hypertension (HCC) 05/07/2017 Reflux esophagitis 01/28/2002 Slow transit constipation 07/20/2015 Thyroid nodule 09/05/2016 Tubular adenoma of colon 07/20/2015 Urge incontinence 05/03/2004 Urinary, incontinence, stress female 02/21/2016 Past Surgical History: Procedure Laterality Date ARTHROCENT ASP &/OR INJ MAJOR JX/BURSA W/O US 04/06/2019 ARTHROCENTESIS OR INJECTION MAJOR JOINT [facility] Todd [facility] Cousins[facility] BI[facility]SY OF BREAST, OPEN 1971 benign, right, removed nipple for blocked milk glands BIOPSY OF BREAST, OPEN 1976 left, benign BREAST SURGERY PROCEDURE NEC bilateral Breast Reduction 09/20/03 BUNION CORRECTED WITH DOUBLE OSTEOTOMY 1991 right foot COLONOSCOPY, DIAGNOSTIC (RECTUM) 03/08/2015 adenomatous polyps, repeat 3 yrs/[facility] COLONOSCOPY, DIAGNOSTIC (RECTUM) 03/26/2018 adenomatous & serrated adenomatous polyps, repeat 3 yrs/[facility] COLONOSCOPY, DIAGNOSTIC (RECTUM) 06/15/2021 normal, repeat 5 yrs / [facility] COLONOSCOPY, DIAGNOSTIC (RECTUM) 06/30/2021 dilated colon, successfully decompressed and a decompression tube placed / INPT [facility] EGD, FLEXIBLE, DIAGNOSTIC 01/21/2015 sm HH/[facility] EGD, FLEXIBLE, DIAGNOSTIC 07/22/2018 mild gastritis, Schatzki ring, duodenal polyp/[facility] ESOPHAGOSCOPY RIGID TRANSORAL HYPOPHARYNX ESOPHAGUS 2004 repair of Zenker's diverticulum [facility] DIGITAL BREAST TOMOSYNTHESIS; BILATERAL Bilateral 12/2019 category 2 benign, repeat 1 year LAPAROSCOPY; CHOLECYSTECTOMY 06/04/2016 laparoscopic cholecystectomy , [facility] Dr. 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 Tobacco Use Smoking status: Former Packs/day: 1.75 Years: 38.00 Pack years: 66.50 Types: Cigarettes Quit date: 10/07/1995 Years since quittin.1 Smokeless tobacco: Never Tobacco comments: quit in 1995 Substance and Sexual Activity Alcohol use: No Drug use: No Sexual activity: Not Currently Partners: Male Other Topics Concern Service No Blood Transfusions No Caffeine Concern No Occupational Exposure No Hobby Hazards No Sleep Concern No Stress Concern No Weight Concern Yes Special Diet Not Asked Back Care No Exercise No Bike Helmet Not Asked Seat Belt Yes Self-Exams Not Asked Social History Narrative 5 grandchildren, 4 in the area. 3 living children. Social Determinants of Health Financial Resource Strain: Not on file Food Insecurity: Not on file Transportation Needs: Not on file Physical Activity: Not on file Stress: Not on file Social Connections: Not on file Intimate Partner Violence: Not on file Housing Stability: Not on file Review of patient's allergies indicates: Allergen Reactions Adhesive Tape Sensitive to Aleve [Naproxen] Hives Ivp Dye Hives Latex Other (Please comment) Contact rash Motrin [Ibuprofen] Rash Objective: BP 122/78 | Pulse 60 | Temp 36.6 C (97.8 F) | Resp 16 | Wt 92.1 kg (203 lb) | BMI 38.36 kg/m | BSA 1.99 m Physical Exam: General: alert, no distress, well nourished and well developed Head: Normocephalic, No masses, lesions, tenderness or abnormalities Eye Exam: PERRLA, extraocular movements intact, conjunctiva are pink and non- injected, sclera clear Ears: External ears normal, Canals clear, TM's Normal Nose: no mucosal erythema, no mucosal edema, no purulent discharge, no sinus tenderness Oropharynx: no exudate, no erythema, lips, buccal mucosa, and tongue normal and mucous membranes are moist Neck: supple, no adenopathy Heart: regular rate & rhythm, no murmur and no gallops Lungs: chest symmetric with normal AP diameter, no chest deformities noted, no chest wall tenderness, lungs clear to auscultation, decreased breath sounds Extremities: no edema, no clubbing, no cyanosis : +thick white vaginal discharge with tiny drop of scant blood tinged drainage on underpad Skin: erythematous rash of bilateral groin folds. +seborrheic keratosis of left dorsal hand. Slightskin thickening behind bilateral ears Extensive ROS Constitutional (f/c/wt/vision/hearing): see above hpi Resp (cough/sob/malagon): see above hpi CV (cp/palp/fluttering/diaphoresis/malagon/pnd):stable GI (n/v/d/hrtburn): stable Endo (hair/cold or heat intol/ 3 p's): prediabetes Neuro (shaking/weak/fatigu/parasthesi/): Negative Skin (rash/easy bruis/xerosis): see above hpi Psy (si/hi/halluc/): Negative (nocturia/hesit/drib/sexual review): see above hpi Lymph (swollen glands/b sx's/: Negative ASSESSMENT: Vulvovaginitis due to yeast (Primary) - Fluconazole 150 MG Oral Tablet (Diflucan); Take 1 Tablet by mouth once for 1 dose. Seborrheic keratosis--reassured Candidiasis, intertrigo--continue Nystatin powder. Worse since taking antibiotic. Allergic rhinitis, unspecified seasonality, unspecified trigger--start Flonase. Vaginal bleeding Follow Up: Return as scheduled. PLAN: Continue present medication(s): Begin medication(s): Fluconazole for yeast vaginitis. Suspect scant vaginal bleeding is from this. Has had hysterectomy. If vaginal bleeding does not resolve with treatment of fluconazole, may need to see gynecology. Start Flonase for allergic rhinitis/eustachian tube dysfunction. Does not appear to need further antibiotics at this time. Reassured about benign nature of seborrheic keratosis of left hand. Suspect areas behind ears is due to oxygen rubbing. Follow up: As scheduled. Yariel Cardoza MD documented in this encounter Nursing Notes * Елена Brooks RN - 12/11/2022 11:33 AM EST Acute visit for vaginal bleeding? Also has vaginal itching, and yellow discharge Pt states she notices it when she flushes the toilet, But she Thinks this is vaginal Not rectal. Pt just finished antibiotic, but still has has right ear pain and headache * Елена Brooks RN - 12/11/2022 11:33 AM EST Acute visit for vaginal bleeding? Also has vaginal itching, and yellow discharge Pt states she notices it when she flushes the toilet, But she Thinks this is vaginal Not rectal. Pt just finished antibiotic, but still has has right ear pain and headache documented in this encounter Plan of Treatment Upcoming Encounters Date Type Specialty Care Team Description 04/16/2023 Office Visit Family Medicine Yariel Cardoza MD [address] [place] [address] [place] [id number] Scheduled Procedures Name Priority Associated Diagnoses Date/Ti [...] as of this encounter Visit Diagnoses Diagnosis Vulvovaginitis due to yeast- Primary Seborrheic keratosis Other seborrheic keratosis Candidiasis, intertrigo Candidiasis of skin and nails Allergic rhinitis, unspecified seasonality, unspecified trigger Vaginal bleeding Other specified noninflammatory disorder of vagina documented in this encounter Care Teams Guest Experience Specialist Relationship Specialty Start Date End Date Yariel Cardoza MD [address] [place] [address] [place] [address] PCP - General Family Medicine 12/01/18 documented as of this encounter"
--- OUTSIDE RECORDS SUMMARY | 2023-06-07 07:35 | External Medical Summary | Summary of Care ---
Author Name Unknown Organization [place] [address] Care Team Providers Care Vascular Surgeon Name Role Phone Yariel Cardoza MD Primary Care Provide r Reason for Visit * Reason Onset Date Comments FYI 11/07/2022 Encounter Details Date Type Department Care Team Description 11/07/2022 Telephone Care Coordination [address] [place] [address] Corrina Layne RN [address] [facility] [place] [address] FYI Allergies Active Allergy Reactions Severity Noted Date [...] . For 5 days 0 Active Nystatin 349378 UNIT/GM External Powder (Nystop)Indications:C andidal skin infection [...] mRNA, LNP-s, No Pre serve, 2-Dose Series ([employer]) 09/13/2021,12/16/2020,11/25/2020 Covid-19, Mrna, Lnp-s, Pf, B ivalent Booster, 30 Mcg, IM, 12 yrs and above ([employer]) 08/14/2022 Pneumococcal Conjugate Vacc, 13 Valent (Prevnar) [...] encounter Miscellaneous Notes * Telephone Encounter - Jag Anderson LPN - 11/07/2022 10:07 AM EST Assigned to Mariola Mariee [facility] documented in this encounter Plan of Treatment Upcoming Encounters Date Type Specialty Care Team Description 04/16/2023 Office Visit Family Medicine Yariel Cardoza MD [address] [place] [address] [place] [address] Scheduled Procedures Name Priority [...] DXA Scan 08/17/2022 08/17/2015 HgA1C 11/28/2022 11/28/2021, 03/2 11/2020, 03/19/2017 GFR - Renal Function 06/19/2023 06/19/2022, [...] filedocumented as of this encounter Care Teams Vascular Surgeon Relationship Specialty Start Date End Date Yariel Cardoza MD [address] [place] [address] [place] [address] PCP - General Family Medicine 12/01/18 documented as of this encounter
--- OUTSIDE RECORDS SUMMARY | 2023-06-07 07:35 | External Medical Summary | Summary of Care ---
Author Name Unknown Organization [place] [address] Care Team Providers Care Track Hoe Operator Name Role Phone Yariel Cardoza MD Primary Care Provide r Reason for Referral * Evaluate & Treat - Unlimited Visits (Within 10 days (routine)) - Authorized Specialty Diagnoses / Procedures Referred By Matt cota Referred To Contact Shop Fitter Diagnoses COPD, severe (HCC) Landon Clark DO [address] [facility] [place] [address] Referral ID Status Reason Start Date Expiration Date Visits Requested Visits Authorized [id number] Authorized Specialty Services Required 11/07/2022 999 999 Question Answer Referral Priority Within 10 days (routine) Role Air Compressor Operator Air Compressor Operator Referral Reason COPD Comments Is patient being [...] Description 11/02/2022 Home Visit [facility], 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 For 5 days 0 Active Nystatin 139643 UNIT/GM External Powder (Nystop)Indications :Candidal skin infection [...] mRNA, LNP-s, No Pre serve, 2-Dose Series ([employer]) 09/13/2021,12/16/2020,11/25/2020 Covid-19, Mrna, Lnp-s, Pf, B ivalent Booster, 30 Mcg, IM, 12 yrs and above ([employer]) 08/14/2022 Pneumococcal Conjugate Vacc, 13 Valent (Prevnar) [...] at Home Graduation Progress Episode Start Date: No linked episodes [facility] Cohort: Focused Care Management (3-9 months) [...] education, and teach back: Met Additional Information: Pt is on preventative azithromycin MWF to prevent pneumonia COPD rescue in the past has been zpack and prednisone-sees [facility] Pulmonology-Dr Inman. Has home oxygen to use at hs and as needed. Updated: 11/02/2022 2:11 PM Social Determinants of [...] relevant Specialty appointments scheduled: Met Additional Information: Referral to opcm to follow for copd. Updated: 11/02/2022 2:12 PM * Jonathan Bustillo RN - 11/02/2022 12:53 PM EST [facility] Shop Fitter Monthly Visit Date: 11/02/2022 Time: 12:56 PM [...] at baseline. Has regular follow ups with tin roofer. Up to date on flu, pneumonia and [...] up for copd. Agreeable to graduation from [facility]. Recommendation: Continue all medications as ordered/reviewed. [...] emergent issues. Is the patient new to [facility] within the last 30 days? No, Assess appropriateness for upcoming telehealth visits. Cancel telehealth visits & schedule home visit with care steamboat pilot(s)as indicated. Provider is in agreement with Plan [...] Office Visit Family Medicine Yariel Cardoza MD [address] [place] [address] [place] [address] Scheduled Procedures Name Priority [...] classified documented in this encounter Care Teams Track Hoe Operator Relationship Specialty Start Date End Date Yariel Cardoza MD [address] [place] [address] [place] [address] PCP - General Family Medicine 12/01/18 documented as of this encounter
--- OUTSIDE RECORDS SUMMARY | 2023-06-07 07:35 | External Medical Summary | Summary of Care ---
Author Name Unknown Organization [place] [address] Care Team Providers Care Printing Bindery Assistant Name Role Phone Yariel Cardoza MD Primary Care Provide r Encounter Details Date Type Department Care Team Description 11/30/2022 Office Visit Family Medicine [address] [place] [address] Josie Ryan PA-C [address] [place] [address] [place] [address] Acute maxillary sinusitis, recurrence not specified*; COPD, severe (HCC); Moderate episode of recurrent major depressive disorder (HCC); Peripheral vascular disease (HCC); Chronic respiratory failure with hypoxia (HCC); Severe obesity with body mass index (BMI) of 35.0 to 39.9 with serious comorbidity (HCC); HTN, goal below 140/90; Nontoxic single thyroid nodule; Dyslipidemia, goal LDL below 100 Allergies Active Allergy Reactions Severity Noted Date Comments Adhesive Tape 06/29/2003 Sensitive to Naproxen Hives 05/28/2015 Ivp Dye Hives 08/20/2000 Latex Other (Please comment) 01/05/2015 Contact rash Ibuprofen Rash 01/05/2015 documented as of this encounter (statuses as of 11/30/2022) Medications Medication Sig Dispensed Refills Start Date End Date Status oxygen GASIndications:Hypo bryan Use 2 L/min(Oxygen) as directed continuous. 1 Each 0 02/18/2017 Active VENTOLIN HFA 108 (90 Base) MCG/ACT inhaler INHALE 2 PUFFS BY MOUTH EVERY 4 HOURS NEEDED FOR WHEEZING. 1 Inhaler 5 02/10/2018 Active umeclidinium-vilant lashon (ANORO ELLIPTA) 62.5-25 MCG/INH AEPBIndications:APPLICATIONS PACKAGER D Inhale by mouth 1 Puff daily [...] 50 mg . 0 04/01/2022 Active Nystatin 481523 UNIT/GM External Powder (Nystop)Indications :Candidal skin infection [...] EVERY DAY 90 Tablet 2 05/11/2022 Active Losartan Potassium 50 MG Oral Tablet [...] EVERY DAY 90 Tablet 1 11/16/2022 Active Amoxicillin-Pot Clavulanate 875-125 MG Oral Tablet (Augmentin)Indicati ons:Acute maxillary sinusitis, recurrence not specified Take 1 Tablet by mouth in the morning and 1 Tablet before bedtime. Do all this for 10 days. 20 Tablet 0 11/30/2022 3 Active DM-guaiFENesin ER 30-600 MG Oral Tablet Extended Release 12 Hour Take by mouth 1 Tablet every 12 hours . For 5 days 0 3 Discontinue d(Medicatio n List Clean Up) documented as of this encounter (statuses as of 11/30/2022) Active Problems Problem Noted Date Chronic respiratory failure with hypoxia 11/30/2022 Nontoxic single thyroid nodule Hyperlipidemia 06/22/2022 Hypomagnesemia 06/22/2022 Acute right ankle [...] as of this encounter (statuses as of 11/30/2022) Resolved Problems Problem Noted Date Resolved Date Occlusion and stenosis of right vertebral artery 06/22/2022 11/30/2022 Thyroid nodule 10/16/2021 11/30/2022 Pulmonary hypertension 05/07/2017 [...] as of this encounter (statuses as of 11/30/2022) Immunizations Name Administration Dates Next Due COVID-19 mRNA, LNP-s, No Pre serve, 2-Dose Series ([employer]) 09/13/2021,12/16/2020,11/25/2020 Covid-19, Mrna, Lnp-s, Pf, B ivalent [...] Sign Reading Time Taken Comments Blood Pressure 124/78 11/30/2022 10:15 AM EST Pulse 75 11/30/2022 10:15 AM EST Temperature 36.9 C (98.5 F) 11/30/2022 10:[address] Respiratory Rate 16 11/30/2022 10:15 AM EST Oxygen Saturation 98% 11/30/2022 10:15 AM EST Inhaled Oxygen Concentration - - Weight 89.4 kg (197 lb) 11/30/2022 10:15 AM EST Height - - Body Mass Index 37.22 06/22/2022 10:19 AM EDT documented in this encounter Progress Notes * Josie Ryan PA-C - 11/30/2022 10:21 AM EST Nursing Notes: Claribel Tovar LPN 11/30/22 1021 Signed Bad headache, A lot of mucus. Productive cough, Yellow/ green. Tylenol not helping headaches. Started with symptoms 3 days ago. Pt here today with sinus pain/pressure, nasal/head congestion, colored nasal drainage for the past few days. Pt has been taking some OTC meds with little relief. Pt denies fever, chills, nausea, vomiting, diarrhea, chest pain, SOB, cough. Review of patient's allergies indicates: Allergen Reactions Adhesive Tape Sensitive to Aleve [Naproxen] Hives Ivp Dye Hives Latex Other (Please comment) Contact rash Motrin [Ibuprofen] Rash Current Outpatient Medications Medication Sig Dispense Refill [...] Oral Tablet (Ultram) 50 mg . Nystatin 562713 UNIT/GM External Powder (Nystop) APPLY TOPICALLY TO AFFECTED AREA 3 TIMES A DAY. 60 g 1 Furosemide 40 MG Oral Tablet (Lasix) Take by mouth 1 Tablet in the morning. As needed for swelling or fluid accumulation. 30 Tablet 0 hydroCHLOROthiazide 25 MG Oral Tablet (Hydrodiuril) TAKE 1 TABLET BY MOUTH EVERY DAY IN THE MORNING 90 Tablet 2 Clopidogrel Bisulfate 75 MG Oral Tablet (pLAVix) TAKE 1 TABLET BY MOUTH EVERY DAY 90 Tablet 2 Losartan Potassium 50 MG Oral Tablet (Cozaar) Take by mouth 1 Tablet in the morning. 90 Tablet 1 Azithromycin 250 MG Oral Tablet (Zithromax) Take [...] BY MOUTH EVERY DAY 90 Tablet 1 No current facility-administered medications for this visit. 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) COPD, severe ([facility]) 12/21/2015 COPD, severity to be determined ([facility]) 07/20/2015 Dyslipidemia, goal LDL below 100 10/16/2015 Dyslipidemia, goal LDL below 130 08/22/2015 FAM HX-CARDIOVAS DIS NEC 01/28/2002 Generalized osteoarthritis 08/22/2015 GERD (gastroesophageal reflux disease) 07/20/2015 Hypertrophy of breast 08/31/2003 IBS (irritable bowel syndrome) 07/20/2015 Kidney disease, chronic, stage III (GFR 30-59 ml/min) ([facility]) 10/16/2015 Kidney stone Lumbar degenerative disc disease 02/06/2016 Lumbar facet arthropathy ([facility]) 02/06/2016 Lumbar spinal stenosis 02/18/2017 Mixed incontinence urge and stress (male)(female) 07/20/2015 Multiple thyroid nodules 09/09/2016 Obesity, Class II, BMI 35.0-39.9, with comorbidity (see actual BMI) 01/19/2016 Primary osteoarthritis of right knee 02/18/2017 Pulmonary hypertension ([facility]) 05/07/2017 Reflux esophagitis 01/28/2002 Slow transit constipation 07/20/2015 Thyroid nodule 09/05/2016 Tubular adenoma of colon 07/20/2015 Urge incontinence 05/03/2004 Urinary, incontinence, stress female 02/21/2016 Social History Socioeconomic History Marital status: Spouse [...] on file Housing Stability: Not on file O:Blood pressure 124/78, pulse 75, temperature 36.9 C (98.5 F), temperature source Tympanic, resp. rate 16, weight 89.4 kg (197 lb), SpO2 98 %. GENERAL: alert and no distress NECK: supple, no adenopathy EYES: conjunctiva are pink and non-injected, sclera clear EARS: External ears normal, Canals clear, TM's Normal NOSE: no mucosal erythema, no mucosal edema, no purulent discharge OROPHARYNX: no exudate, no erythema, lips, buccal mucosa, and tongue normal and mucous membranes are moist HEART: regular rate & rhythm, no murmur and no gallops LUNGS: chest symmetric with normal AP diameter, no chest deformities noted, no chest wall tenderness, lungs clear to auscultation A:Acute maxillary sinusitis, recurrence not specified (Primary) - Amoxicillin-Pot Clavulanate 875-125 MG Oral Tablet (Augmentin); Take 1 Tablet by mouth in the morning and 1 Tablet before bedtime. Do all this for 10 days. Start above med. Rest, fluids. Any questions/problems, please call. If anything changes, worsens, develops new sx, please call [facility]ATT. Follow Up: Return if symptoms worsen or fail to improve. Josie Ryan PA-C documented in this encounter Nursing Notes * Claribel Tovar LPN - 11/30/2022 10:12 AM EST Bad headache, A lot of mucus. Productive cough, Yellow/ green. Tylenol not helping headaches. Started with symptoms 3 days ago. documented in this encounter Plan of Treatment Upcoming Encounters Date Type Specialty Care Team Description 04/16/2023 Office Visit Family Medicine Yariel Cardoza MD [address] [place] [address] [place] [address] Scheduled Procedures Name Priority [...] as of this encounter Visit Diagnoses Diagnosis Acute maxillary sinusitis, recurrence not specified- Primary COPD, severe (HCC) Chronic airway obstruction, not elsewhere classified Moderate episode of recurrent major depressive disorder (HCC) Peripheral vascular disease (HCC) Peripheral vascular disease, unspecified Chronic respiratory failure with hypoxia (HCC) Chronic respiratory failure Severe obesity with body mass index (BMI) of 35.0 to 39.9 with serious comorbidity (HCC) HTN, goal below 140/90 Unspecified essential hypertension Nontoxic single thyroid nodule Nontoxic uninodular goiter Dyslipidemia, goal LDL below 100 Other and unspecified hyperlipidemia documented in this encounter Care Teams Printing Bindery Assistant Relationship Specialty Start Date End Date Yariel Cardoza MD [address] [place] [address] [place] [id number] PCP - General Family Medicine 12/01/18 documented as of this encounter
--- OUTSIDE RECORDS SUMMARY | 2023-06-07 07:35 | External Medical Summary | Summary of Care ---
Author Name Unknown Organization [place] [address] Care Team Providers Care Counter Pocket Trimmer Name Role Phone Leanne Cardoza MD Primary Care Provide r Reason for Visit * Reason Comments eRx-Medication Refill Encounter Details Date Type Department Care Team Description 11/16/2022 Refill Family Medicine [address] [place] [address] Leanne Cardoza MD [address] [place] [address] [place] [id number] HTN, goal below 140/90 Allergies Active Allergy Reactions Severity Noted Date Comments Adhesive Tape 06/29/2003 Sensitive to Naproxen Hives 05/28/2015 Ivp Dye Hives 08/20/2000 Latex Other (Please comment) 01/05/2015 Contact rash Ibuprofen Rash 01/05/2015 documented as of this encounter (statuses as of 11/16/2022) Medications Medication Sig Dispensed Refills Start Date End Date Status oxygen GASIndications:Hypo bryan Use 2 L/min(Oxygen) as directed continuous. 1 Each 0 7 Active VENTOLIN HFA 108 (90 Base) MCG/ACT inhaler INHALE 2 PUFFS BY MOUTH EVERY 4 HOURS NEEDED FOR WHEEZING. 1 Inhaler 5 8 Active umeclidinium-vilant lashon (ANORO ELLIPTA) 62.5-25 MCG/INH AEPBIndications:FIRE PREVENTION ENGINEER D Inhale by mouth 1 Puff daily [...] A DAY. 120 mL 5 2 Active Potassium Chloride ER 10 MEQ Oral Tablet Extended Release TAKE 1 TABLET BY MOUTH EVERY DAY 90 Tablet 3 2 Active Omeprazole 20 MG Oral Capsule [...] (Ultram) 50 mg . 0 2 Active DM-guaiFENesin ER 30-600 MG Oral Tablet Extended Release 12 Hour Take by mouth 1 Tablet every 12 hours . For 5 days 0 Active Nystatin 017867 UNIT/GM External Powder (Nystop)Indications :Candidal skin infection APPLY TOPICALLY TO AFFECTED AREA 3 TIMES A DAY. 60 g 1 2 Active Furosemide 40 MG Oral Tablet (Lasix)Indications: Bilateral lower extremity edema Take by mouth 1 Tablet in the morning. As needed for swelling or fluid accumulation. 30 Tablet 0 2 Active hydroCHLOROthiazide 25 MG Oral Tablet (Hydrodiuril) TAKE 1 TABLET BY MOUTH EVERY DAY IN THE MORNING 90 Tablet 2 2 Active Clopidogrel Bisulfate 75 MG Oral Tablet (pLAVix)Indications :Stenosis of right vertebral artery,TIA (transient ischemic attack) TAKE 1 TABLET BY MOUTH EVERY DAY 90 Tablet 2 2 Active Losartan Potassium 50 MG Oral Tablet (Cozaar)Indications :HTN, goal below 140/90 Take by mouth 1 Tablet in the morning. 90 Tablet 1 2 Active Azithromycin 250 MG Oral Tablet [...] 2 Active Atenolol 25 MG Oral Tablet (Tenormin)Titatio ns:HTN, goal below 140/90 TAKE 1 TABLET BY MOUTH EVERY DAY 90 Tablet 1 3 Active Atenolol 25 MG Oral Tablet (Tenormin)[place] ns:HTN, goal below 140/90 TAKE 1 TABLET BY MOUTH EVERY DAY 90 Tablet 1 2 11/16/19 23 Discontinued documented as of this encounter (statuses as of 11/16/2022) Active Problems Problem Noted Date Nontoxic single [...] as of this encounter (statuses as of 11/16/2022) Resolved Problems Problem Noted Date Resolved Date [...] as of this encounter (statuses as of 11/16/2022) Immunizations Name Administration Dates Next Due COVID-19 mRNA, LNP-s, No Pre serve, 2-Dose Series ([employer] 09/13/2021,12/16/2020,11/25/2020 Covid-19, Mrna, Lnp-s, Pf, B ivalent Booster, 30 Mcg, IM, 12 yrs and above ([employer] 08/14/2022 Pneumococcal Conjugate Vacc, 13 Valent (Prevnar) [...] encounter Miscellaneous Notes * Telephone Encounter - Jame Tavarez RPh - 11/16/2022 10:17 AM ESTSigned Prescriptions: Disp Refills Atenolol 25 MG Oral Tablet (Tenormin) 90 Tab*1 Sig: TAKE 1 TABLET BY MOUTH EVERY DAYAuthorizing Provider: LEANNE CARDOZA User: JAME TAVAREZ------- documented in this encounter Plan of Treatment Upcoming Encounters Date Type Specialty Care Team Description 04/16/2023 Office Visit Family Medicine Leanne Cardoza MD [address] [place] [address] [place] [address] Scheduled Procedures Name Priority [...] as of this encounter Visit Diagnoses Diagnosis HTN, goal below 140/90 Unspecified essential hypertension documented in this encounter Care Teams Counter Pocket Trimmer Relationship Specialty Start Date End Date Leanne Cardoza MD [address] [place] [address] [place] [id number] PCP - General Family Medicine 12/01/18 documented as of this encounter
--- OUTSIDE RECORDS SUMMARY | 2023-06-07 07:35 | External Medical Summary | Summary of Care ---
Author Name Unknown Organization [place] [address] Care Team Providers Care Fuel Oil Clerk Name Role Phone Yariel Cardoza MD Primary Care Provide r Reason for Visit * Reason Onset Date Comments case management 11/08/2022 Encounter Details Date Type Department Care Team Description 11/08/2022 [place] Telephone [address] [address] Mariola Mariee, RN [address] [place] [address] case management Allergies Active Allergy Reactions Severity Noted Date Comments Adhesive Tape 06/29/2003 Sensitive to Naproxen Hives 05/28/2015 Ivp Dye Hives 08/20/2000 Latex Other (Please comment) 01/05/2015 Contact rash Ibuprofen Rash 01/05/2015 documented as of this encounter (statuses as of 11/08/2022) Medications Medication Sig Dispensed Refills Start Date [...] . For 5 days 0 Active Nystatin 619923 UNIT/GM External Powder (Nystop)Indications:C andidal skin infection [...] as of this encounter (statuses as of 11/08/2022) Active Problems Problem Noted Date Nontoxic single [...] as of this encounter (statuses as of 11/08/2022) Resolved Problems Problem Noted Date Resolved Date [...] as of this encounter (statuses as of 11/08/2022) Immunizations Name Administration Dates Next Due COVID-19 mRNA, LNP-s, No Pre serve, 2-Dose Series ([employer]) 09/13/2021,12/16/2020,11/25/2020 Covid-19, Mrna, Lnp-s, Pf, B ivalent Booster, 30 Mcg, IM, 12 yrs and above ([employer]) 08/14/2022 Pneumococcal Conjugate Vacc, 13 Valent (Prevnar) [...] encounter Miscellaneous Notes * Telephone Encounter - Mariola Mariee RN - 11/08/2022 4:30 PM EST Attempted to contact patient for follow up to [facility] graduation. Is currently at tax office having her taxes done and unable to talk. CM to call her back tomorrow. 1. Follow-up Routine 2. Attempted Phone Call First Attempt 3. Call Unanswered Left Voicemail 4. Plan To attempt Follow-up documented in this encounter Plan of Treatment Upcoming Encounters Date Type Specialty Care Team Description 04/16/2023 Office Visit Family Medicine Yariel Cardoza MD [address] [place] [address] [place] [address] Scheduled Procedures Name Priority [...] filedocumented as of this encounter Care Teams Fuel Oil Clerk Relationship Specialty Start Date End Date Yariel Cardoza MD [address] [place] [address] [place] [address] PCP - General Family Medicine 12/01/18 documented as of this encounter
--- OUTSIDE RECORDS SUMMARY | 2023-06-07 07:36 | External Medical Summary | Summary of Care ---
Author Name Unknown Organization [place] [address] Care Team Providers Care Financial Planning Advisor Name Role Phone Yariel Cardoza MD Primary Care Provide r Reason for Visit * Reason Onset Date Comments Med Request 10/22/2022 Pre Cert/Prior Auth 10/22/2022 Amitriptylin e HCl 25 MG Oral Tablet (Elavil) Status Check 10/22/2022 Encounter Details Date Type Department Care Team Description 10/22/[address] [phone] Yariel Cardoza MD [address] [place] [address] [place] [address] Med Request; Pre Cert/Prior Auth (Amitript... Allergies Active Allergy Reactions Severity Noted Date Comments Adhesive Tape 06/29/2003 Sensitive to Naproxen Hives 05/28/2015 Ivp Dye Hives 08/20/2000 Latex Other (Please comment) 01/05/2015 Contact rash Ibuprofen Rash 01/05/2015 documented as of this encounter (statuses as of 10/26/2022) Medications Medication Sig Dispensed Refills Start Date [...] . For 5 days 0 Active Nystatin 923420 UNIT/GM External Powder (Nystop)Indications:C andidal skin infection [...] as of this encounter (statuses as of 10/26/2022) Active Problems Problem Noted Date Nontoxic single [...] as of this encounter (statuses as of 10/26/2022) Resolved Problems Problem Noted Date Resolved Date [...] as of this encounter (statuses as of 10/26/2022) Immunizations Name Administration Dates Next Due COVID-19 mRNA, LNP-s, No Pre serve, 2-Dose Series ([employer]) 09/13/2021,12/16/2020,11/25/2020 Covid-19, Mrna, Lnp-s, Pf, B ivalent Booster, 30 Mcg, IM, 12 yrs and above ([employer]) 08/14/2022 Pneumococcal Conjugate Vacc, 13 Valent (Prevnar) [...] encounter Miscellaneous Notes * Telephone Encounter - Courtney Montiel LPN - 10/26/2022 1:46 PM EST Addended office note faxed to [facility] at [phone] * Telephone Encounter - Yariel Cardoza MD [...] a response. Please call patient back at [phone]. Thank you, Enriqueta Jimenez CPhT Scale Reclamation Tender [facility] 10/24/2022,5:33 PM * Telephone Encounter - Deborah Fischer CPhT - 10/24/2022 9:18 AM EST [facility] calling to check on status of PA. [facility] needs infor by 3pm today. Thank you, Deborah Fischer Scale Reclamation Tender [facility] 10/24/2022,9:18 AM * Telephone Encounter - MARIO Ashley Tech - 10/23/2022 10:37 AM EST [facility] calling to check on status of PA Thank you, Mallory Castillo, Plastic Molder [facility] 10/23/2022,10:37 AM * Telephone Encounter - Nerissa [...] orthostatic hypotension.) To monitor utilization of TCAs, [facility] is requiring Prior Authorization of those drugs in this class that may have a significant side effect profile. Forwarding to provider to advise. Thank you, Nerissa Tate PharmD Clinical Pharmacist [facility] [phone] 10/23/2022, 10:18 AM * Telephone Encounter - MARIO Casas - 10/23/2022 9:21 AM EST EOC: [id number] This is a request for additional information. [...] orthostatic hypotension. To monitor utilization of TCAs, [facility] is requiring Prior Authorization of those drugs in this class that may have a significant side effect profile. Please advise. Thank you, Bhavna [facility] Ophthalmic Medical Technician Lead [employer] 10/23/2022,9:21 AM * Telephone Encounter - LIMA Guajardo - 10/23/2022 8:33 AM EST [facility] is calling to ask for clinical documentation for review. Information would need to be faxed [phone]. They would need this before 12:00 on 10/24/22. Thank you, Claudia Elmore Plastic Molder [facility] 10/23/2022,8:34 AM * Telephone Encounter - MARIO Casas - 10/22/2022 10:00 AM EST Submitted information in previous note via [employer] (EOC: [id number]).. Awaiting payer response. We will follow-up with insurance starting 10/23. Per [facility] request, if no decision is received from insurance by 10/25, we will route back to the [facility] after clarifying with the pharmacy that the claim is still not processing. Thank you, Bhavna Graham [facility] Ophthalmic Medical Technician Lead [facility] 10/22/2022,10:00 AM * Telephone Encounter - Nerissa Tate [facility] - 10/22/2022 9:41 AM EST As [...] OV with provider 07/10/2019 Telephone encounter with [facility] Please copy and paste the following [...] upon this and route back to the [facility] if no decision is made by the insurance by 10/25/2022, afterclarifying with the pharmacy that the claim is still not processing. If PA is denied, please also route back to [facility]. Thank you, Nerissa Tate PharmD Clinical Pharmacist [facility] [phone] 10/22/2022, 9:45 AM * Telephone Encounter - [...] needs prior authorization This PA is for [employer] but a PA was completed through [employer] back in April and was approved. From TE 07/28/2022, pharmacy asked if it was OK to fill using discount card, not sure if "Contacted [facility] pharmacy and Amitriptyline is approved and can be picked up tomorrow 08/03/22" means discount card is approved for use or if PA was completed. Found no further PA information in chart. Of note, there is nothing currently pending in [facility] for this request. Please advise how to proceed. Thank you, Bhavna Graham CPhT Ophthalmic Medical Technician Lead [facility] 10/22/2022,9:02 AM * Telephone Encounter - Rahda Andersen CPhT - 10/22/2022 8:37 AM EST Pt is out of medication, asking high priority. Pt calling to inform doctor that the patient's insurance will not pay for this medication without acompleted prior authorization. Did confirm this information with the pharmacy. Pt's current insurance information is as follows: Patient name: Jayla Hayes ID number: [id number] BIN number: [id number] PCN number: [id number] Group number: [id number] Subscriber name: Jayla Hayes Primary or Secondary Insurance:Primary Medication: Amitriptyline HCl 25 MG Oral Tablet (Elavil) Reason for Request: Prior Auth Pharmacy and phone number: [id number] [phone] Rx plan and phone number: Alexander Chandana [phone] What alternative medications does the pharmacy have in stock?: N/A Thank you, Radha Andersen Plastic Molder [employer] 10/22/2022,8:43 AM documented in this encounter Plan of Treatment Upcoming Encounters Date Type Specialty Care Team Description 11/02/2022 Home Visit [facility] [place] Corrina Layne RN [address] [place] [address] 04/16/2023 Office Visit Family Medicine Yariel Cardoza MD [address] [place] [address] [place] [id number] Scheduled Procedures Name Priority Associated Diagnoses Date/Ti [...] filedocumented as of this encounter Care Teams Financial Planning Advisor Relationship Specialty Start Date End Date Yariel Cardoza MD [address] [place] [address] [place] [address] PCP - General Family Medicine 12/01/18 documented as of this encounter
--- OUTSIDE RECORDS SUMMARY | 2023-06-07 07:36 | External Medical Summary | Summary of Care ---
Author Name Unknown Organization [place] [address] Care Team Providers Care Engineering Agent Name Role Phone Yariel Cardoza MD Primary Care Provide r Reason for Visit * Reason Onset Date Comments Med Request 10/22/2022 Pre Cert/Prior Auth 10/22/2022 Amitriptylin e HCl 25 MG Oral Tablet (Elavil) Status Check 10/22/2022 Encounter Details Date Type Department Care Team Description 10/22/[address] [address] Yariel Cardoza MD [address] [place] [address] [place] [address] Med Request; Pre Cert/Prior Auth (Amitript... Allergies Active Allergy Reactions Severity Noted Date Comments Adhesive Tape 06/29/2003 Sensitive to Naproxen Hives 05/28/2015 Ivp Dye Hives 08/20/2000 Latex Other (Please comment) 01/05/2015 Contact rash Ibuprofen Rash 01/05/2015 documented as of this encounter (statuses as of 10/25/2022) Medications Medication Sig Dispensed Refills Start Date [...] . For 5 days 0 Active Nystatin 915724 UNIT/GM External Powder (Nystop)Indications:C andidal skin infection [...] as of this encounter (statuses as of 10/25/2022) Active Problems Problem Noted Date Nontoxic single [...] as of this encounter (statuses as of 10/25/2022) Resolved Problems Problem Noted Date Resolved Date [...] as of this encounter (statuses as of 10/25/2022) Immunizations Name Administration Dates Next Due COVID-19 mRNA, LNP-s, No Pre serve, 2-Dose Series (Collect) 09/13/2021,12/16/2020,11/25/2020 Covid-19, Mrna, Lnp-s, Pf, B ivalent Booster, 30 Mcg, IM, 12 yrs and above (Collect) 08/14/2022 Pneumococcal Conjugate Vacc, 13 Valent (Prevnar) [...] encounter Miscellaneous Notes * Telephone Encounter - Yariel Cardoza MD [...] a response. Please call patient back at [phone]. Thank you, Enriqueta Jimenez CPhT Transportation Modeler [facility] 10/24/2022,5:33 PM * Telephone Encounter - Deborah Fischer CPhT - 10/24/2022 9:18 AM EST ghp calling to check on status of PA. GHP needs infor by 3pm today. Thank you, Deborah Fischer Transportation Modeler II [facility] 10/24/2022,9:18 AM * Telephone Encounter - MARIO Ashley - 10/23/2022 10:37 AM EST ghp calling to check on status of PA Thank you, Mallory Castillo, Ticket Worker [facility] 10/23/2022,10:37 AM * Telephone Encounter - Nerissa [...] orthostatic hypotension.) To monitor utilization of TCAs, [facility] is requiring Prior Authorization of those drugs in this class that may have a significant side effect profile. Forwarding to provider to advise. Thank you, Nerissa Tate PharmD Clinical Pharmacist [facility] [phone] 10/23/2022, 10:18 AM * Telephone Encounter - MARIO Casas - 10/23/2022 9:21 AM EST EOC: [id number] This is a request for additional information. [...] orthostatic hypotension. To monitor utilization of TCAs, [facility] is requiring Prior Authorization of those drugs in this class that may have a significant side effect profile. Please advise. Thank you, Bhavna Graham CPhT Security Project Manager Lead [email or web address] 10/23/2022,9:21 AM * Telephone Encounter - LIMA Guajardo - 10/23/2022 8:33 AM EST Princess is calling to ask for clinical documentation for review. Information would need to be faxed [phone]. They would need this before 12:00 on 10/24/22. Thank you, Claudia Elmore Ticket Worker [facility] 10/23/2022,8:34 AM * Telephone Encounter - MARIO Casas - 10/22/2022 10:00 AM EST Submitted information in previous note via [employer] (EOC: [id number]).. Awaiting payer response. We will follow-up with insurance starting 10/23. Per [facility] request, if no decision is received from insurance by 10/25, we will route back to the [facility] after clarifying with the pharmacy that the claim is still not processing. Thank you, Bhavna Graham [facility] Security Project Manager Lead [facility] 10/22/2022,10:00 AM * Telephone Encounter - Nerissa Tate [facility] - 10/22/2022 9:41 AM EST As per [...] OV with provider 07/10/2019 Telephone encounter with [facility] Please copy and paste the following information [...] upon this and route back to the [facility] pool if no decision is made by the insurance by 10/25/2022, afterclarifying with the pharmacy that the claim is still not processing. If PA is denied, please also route back to [facility] pool. Thank you, Nerissa Tate PharmD Clinical Pharmacist Telepharm[facility] [phone] 10/22/2022, 9:45 AM * Telephone Encounter - [...] needs prior authorization This PA is for [employer] but a PA was completed through [employer] back in April and was approved. From TE 07/28/2022, pharmacy asked if it was OK to fill using discount card, not sure if "Contacted [facility] pharmacy and Amitriptyline is approved and can be picked up tomorrow 08/03/22" means discount card is approved for use or if PA was completed. Found no further PA information in chart. Of note, there is nothing currently pending in [facility] for this request. Please advise how to proceed. Thank you, Bhavna Graham CPhT Security Project Manager Lead [facility] 10/22/2022,9:02 AM * Telephone Encounter - Radha Andersen CPhT - 10/22/2022 8:37 AM EST Pt is out of medication, asking high priority. Pt calling to inform doctor that the patient's insurance will not pay for this medication without acompleted prior authorization. Did confirm this information with the pharmacy. Pt's current insurance information is as follows: Patient name: Jayla Hayes ID number: [id number] BIN number: [id number] PCN number: [id number] Group number: [id number] Subscriber name: Jayla Hayes Primary or Secondary Insurance:Primary Medication: Amitriptyline HCl 25 MG Oral Tablet (Elavil) Reason for Request: Prior Auth Pharmacy and phone number: [id number] [phone] Rx plan and phone number: [facility] [phone] What alternative medications does the pharmacy have in stock?: N/A Thank you, Radha Andersen Ticket Worker [employer] [email or web address] [employer] 10/22/2022,8:43 AM documented in this encounter Plan of Treatment Upcoming Encounters Date Type Specialty Care Team Description 11/02/2022 Home Visit [facility] Corrina Layne RN [address] [facility] [place] [address] 04/16/2023 Office Visit Family Medicine Yariel Cardoza MD [address] [place] [address] [place] [address] Scheduled Procedures Name Priority Associated Diagnoses Date/Ti [...] filedocumented as of this encounter Care Teams Engineering Agent Relationship Specialty Start Date End Date Yariel Cardoza MD [address] [place] [address] [place] [address] PCP - General Family Medicine 12/01/18 documented as of this encounter
--- OUTSIDE RECORDS SUMMARY | 2023-06-07 07:36 | External Medical Summary | Summary of Care ---
Author Name Unknown Organization [place] [address] Care Team Providers Care Epic Willow Analyst Name Role Phone Yariel Cardoza MD Primary Care Provide r Reason for Visit * Reason Onset Date Comments Med Request 10/22/2022 Pre Cert/Prior Auth 10/22/2022 Amitriptylin e HCl 25 MG Oral Tablet (Elavil) Status Check 10/22/2022 Advice 10/22/2022 Encounter Details Date Type Department Care Team Description 10/22/2022 Telephone Family Medicine [address] [address] Yariel Cardoza MD [address] [place] [address] Med Request; Pre Cert/Prior Auth (Amitript... Allergies Active Allergy Reactions Severity Noted Date Comments Adhesive Tape 06/29/2003 Sensitive to Naproxen Hives 05/28/2015 Ivp Dye Hives 08/20/2000 Latex Other (Please comment) 01/05/2015 Contact rash Ibuprofen Rash 01/05/2015 documented as of this encounter (statuses as of 10/31/2022) Medications Medication Sig Dispensed Refills Start Date [...] . For 5 days 0 Active Nystatin 097065 UNIT/GM External Powder (Nystop)Indications:C andidal skin infection [...] as of this encounter (statuses as of 10/31/2022) Active Problems Problem Noted Date Nontoxic single [...] as of this encounter (statuses as of 10/31/2022) Resolved Problems Problem Noted Date Resolved Date [...] as of this encounter (statuses as of 10/31/2022) Immunizations Name Administration Dates Next Due COVID-19 mRNA, LNP-s, No Pre serve, 2-Dose Series ([employer]) 09/13/2021,12/16/2020,11/25/2020 Covid-19, Mrna, Lnp-s, Pf, B ivalent [...] encounter Miscellaneous Notes * Telephone Encounter - Manuela Donahue CPhT - 10/30/2022 6:57 PM EST Patients insurance would like to inform the office that Amitriptyline HCl 25 MG Oral Tablet (Elavil) is requiring additional information: Do not see medical record documentation that the prescriber has indicated the benefits of the requested high risk medication outweigh the risks for the patient AND. Prior authorization entered in [employer] at [facility]. EOC# [id number] Please fax to [phone] before 10/31/2022. Thank you, Manuela Donahue Senior Medical Billing Specialist [email or web address] 10/30/2022, 6:57 PM * Telephone Encounter - VIRA Blount - 10/29/2022 9:44 AM EST Krystal from [facility] called advising they have begun an appeal for the denial of medication on behalf of pt. Ref# [id number] for the denial. There may be some incoming requests for information that will require a 72 hr turn around. Internalfax provided, . * Telephone Encounter - Courtney Montiel LPN - 10/26/2022 1:46 PM EST Addended office note faxed to [facility] at [phone] * Telephone Encounter - Yariel Cardoza MD [...] a response. Please call patient back at [phone]. Thank you, Enriqueta Jimenez CPhT Office Correspondent [facility] 10/24/2022,5:33 PM * Telephone Encounter - Deborah Fischer CPhT - 10/24/2022 9:18 AM EST ghp calling to check on status of PA. GHP needs infor by 3pm today. Thank you, Deborah Fischer Office Correspondent II [facility] 10/24/2022,9:18 AM * Telephone Encounter - MARIO Ashley - 10/23/2022 10:37 AM EST p calling to check on status of PA Thank you, Mallory Castillo, Senior Medical Billing Specialist [email or web address] 10/23/2022,10:37 AM * Telephone Encounter - Nerissa [...] orthostatic hypotension.) To monitor utilization of TCAs, [facility] is requiring Prior Authorization of those drugs in this class that may have a significant side effect profile. Forwarding to provider to advise. Thank you, Nerissa Tate PharmD Clinical Pharmacist [facility] [phone] 10/23/2022, 10:18 AM * Telephone Encounter - MARIO Casas - 10/23/2022 9:21 AM EST EOC: [id number] This is a request for additional information. [...] orthostatic hypotension. To monitor utilization of TCAs, [facility] is requiring Prior Authorization of those drugs in this class that may have a significant side effect profile. Please advise. Thank you, Bhavna Graham CPhT Dinkey Locomotive Engineer Lead [facility] 10/23/2022,9:21 AM * Telephone Encounter - LIMA Guajardo - 10/23/2022 8:33 AM EST [facility] is calling to ask for clinical documentation for review. Information would need to be faxed [phone]. They would need this before 12:00 on 10/24/22. Thank you, Claudia Elmore Senior Medical Billing Specialist [facility] 10/23/2022,8:34 AM * Telephone Encounter - MARIO Casas - 10/22/2022 10:00 AM EST Submitted information in previous note via PromptPA (EOC: [id number]).. Awaiting payer response. We will follow-up with insurance starting 10/23. Per [facility] request, if no decision is received from insurance by 10/25, we will route back to the [facility] after clarifying with the pharmacy that the claim is still not processing. Thank you, Bhavna Graham CPhT Dinkey Locomotive Engineer Lead [facility] 10/22/2022,10:00 AM * Telephone Encounter - Nerissa Tate, [facility] - 10/22/2022 9:41 AM EST As [...] OV with provider 07/10/2019 Telephone encounter with [facility] Please copy and paste the following information [...] upon this and route back to the [facility] pool if no decision is made by the insurance by 10/25/2022, afterclarifying with the pharmacy that the claim is still not processing. If PA is denied, please also route back to [facility] pool. Thank you, Nerissa Tate PharmD Clinical Pharmacist Telepharmacy [phone] 10/22/2022, 9:45 AM * Telephone Encounter - [...] needs prior authorization This PA is for Viro[employer] but a PA was completed through [employer] back in April and was approved. From TE 07/28/2022, pharmacy asked if it was OK to fill using discount card, not sure if "Contacted [facility] pharmacy and Amitriptyline is approved and can be picked up tomorrow 08/03/22" means discount card is approved for use or if PA was completed. Found no further PA information in chart. Of note, there is nothing currently pending in [facility] for this request. Please advise how to proceed. Thank you, Bhavna Graham CPhT Dinkey Locomotive Engineer Lead [facility] 10/22/2022,9:02 AM * Telephone Encounter - Radha Andersen CPhT - 10/22/2022 8:37 AM EST Pt is out of medication, asking high priority. Pt calling to inform doctor that the patient's insurance will not pay for this medication without acompleted prior authorization. Did confirm this information with the pharmacy. Pt's current insurance information is as follows: Patient name: Jayla Hayes ID number: [id number] BIN number: [id number] N number: [id number] Group number: [id number] Subscriber name: Jayla Hayes Primary or Secondary Insurance:Primary Medication: Amitriptyline HCl 25 MG Oral Tablet (Elavil) Reason for Request: Prior Auth Pharmacy and phone number: [id number] [id number] [facility] [phone] Rx plan and phone number: [facility] [phone] What alternative medications does the pharmacy have in stock?: N/A Thank you, Radha Andersen Senior Medical Billing Specialist [facility] 10/22/2022,8:43 AM documented in this encounter Plan of Treatment Upcoming Encounters Date Type Specialty Care Team Description 11/02/2022 [facility] Corrina Layne RN [address] [place] [address] [place] [address] 04/16/2023 Office Visit Family Medicine Yariel Cardoza MD [address] [place] [address] [place] [phone] Scheduled Procedures Name Priority Associated Diagnoses Date/Ti [...] filedocumented as of this encounter Care Teams Epic Willow Analyst Relationship Specialty Start Date End Date Yariel Cardoza MD [address] [place] [address] [place] [address] PCP - General Family Medicine 12/01/18 documented as of this encounter
--- OUTSIDE RECORDS SUMMARY | 2023-06-07 07:36 | External Medical Summary | Summary of Care ---
Author Name Unknown Organization [place] [address] Care Team Providers Care Almond Blancher Operator Name Role Phone Yariel Cardoza MD Primary Care Provide r Reason for Visit * Reason Onset Date Comments Med Request 10/22/2022 Pre Cert/Prior Auth 10/22/2022 Amitriptylin e HCl 25 MG Oral Tablet (Elavil) Status Check 10/22/2022 Advice 10/22/2022 Encounter Details Date Type Department Care Team Description 10/22/2022 Telephone Family Medicine [address] [address] Yariel Cardoza MD [address] [place] [address] Med Request; Pre Cert/Prior Auth (Amitript... Allergies Active Allergy Reactions Severity Noted Date Comments Adhesive Tape 06/29/2003 Sensitive to Naproxen Hives 05/28/2015 Ivp Dye Hives 08/20/2000 Latex Other (Please comment) 01/05/2015 Contact rash Ibuprofen Rash 01/05/2015 documented as of this encounter (statuses as of 10/29/2022) Medications Medication Sig Dispensed Refills Start Date [...] . For 5 days 0 Active Nystatin 326475 UNIT/GM External Powder (Nystop)Indications:C andidal skin infection [...] as of this encounter (statuses as of 10/29/2022) Active Problems Problem Noted Date Nontoxic single [...] as of this encounter (statuses as of 10/29/2022) Resolved Problems Problem Noted Date Resolved Date [...] as of this encounter (statuses as of 10/29/2022) Immunizations Name Administration Dates Next Due COVID-19 mRNA, LNP-s, No Pre serve, 2-Dose Series ([employer]) 09/13/2021,12/16/2020,11/25/2020 Covid-19, Mrna, Lnp-s, Pf, B ivalent [...] Miscellaneous Notes * Telephone Encounter - VIRA Blount - 10/29/2022 9:44 AM EST Krystal from [facility] called advising they have begun an appeal for the denial of medication on behalf of pt. Ref# [id number] for the denial. There may be some incoming requests for information that will require a 72 hr turn around. Internalfax provided, . * Telephone Encounter - Courtney Montiel LPN - 10/26/2022 1:46 PM EST Addended office note faxed to [facility] at [phone] * Telephone Encounter - Yariel Cardoza MD [...] a response. Please call patient back at [phone]. Thank you, Enriqueta Jimenez CPhT Dry Folder Cloth [facility] 10/24/2022,5:33 PM * Telephone Encounter - Deborah Fischer CPhT - 10/24/2022 9:18 AM EST banner calling to check on status of PA. GHP needs infor by 3pm today. Thank you, Deborah Fischer Dry Folder Cloth [facility] 10/24/2022,9:18 AM * Telephone Encounter - MARIO Ashley Tech - 10/23/2022 10:37 AM EST banner calling to check on status of PA Thank you, Mallory Castillo, Barrel Cooper [facility] 10/23/2022,10:37 AM * Telephone Encounter - [...] orthostatic hypotension.) To monitor utilization of TCAs, [facility] is requiring Prior Authorization of those drugs in this class that may have a significant side effect profile. Forwarding to provider to advise. Thank you, Nerissa Tate PharmD Clinical Pharmacist [facility] [phone] 10/23/2022, 10:18 AM * Telephone Encounter - MARIO Casas Tech - 10/23/2022 9:21 AM EST EOC: [id number] This is a request for additional information. [...] orthostatic hypotension. To monitor utilization of TCAs, [facility] is requiring Prior Authorization of those drugs in this class that may have a significant side effect profile. Please advise. Thank you, Bhavna Graham CPhT Field Foreman Lead [employer] 10/23/2022,9:21 AM * Telephone Encounter - LIMA Guajardo - 10/23/2022 8:33 AM EST Princess is calling to ask for clinical documentation for review. Information would need to be faxed [phone]. They would need this before 12:00 on 10/24/22. Thank you, Claudia Elmore Barrel Cooper [facility] 10/23/2022,8:34 AM * Telephone Encounter - MARIO Casas - 10/22/2022 10:00 AM EST Submitted information in previous note via PromptPA (EOC: [id number]).. Awaiting payer response. We will follow-up with insurance starting 10/23. Per [facility] request, if no decision is received from insurance by 10/25, we will route back to the [facility] after clarifying with the pharmacy that the claim is still not processing. Thank you, Bhavna Graham CPhT Field Foreman Lead [facility] 10/22/2022,10:00 AM * Telephone Encounter - Nerissa Tate [facility] - 10/22/2022 9:41 AM [...] OV with provider 07/10/2019 Telephone encounter with [facility] Please copy and paste the following [...] upon this and route back to the [facility] pool if no decision is made by the insurance by 10/25/2022, afterclarifying with the pharmacy that the claim is still not processing. If PA is denied, please also route back to [facility] pool. Thank you, Nerissa Tate PharmD Clinical Pharmacist Telepharmacy [phone] 10/22/2022, 9:45 AM * Telephone Encounter - [...] needs prior authorization This PA is for [place] but a PA was completed through [employer] back in April and was approved. From TE 07/28/2022, pharmacy asked if it was OK to fill using discount card, not sure if "Contacted [facility] pharmacy and Amitriptyline is approved and can be picked up tomorrow 08/03/22" means discount card is approved for use or if PA was completed. Found no further PA information in chart. Of note, there is nothing currently pending in [facility] for this request. Please advise how to proceed. Thank you, Bhavna Graham CPhT Field Foreman Lead [employer] 10/22/2022,9:02 AM * Telephone Encounter - Radha Andersen CPhT - 10/22/2022 8:37 AM EST Pt is out of medication, asking high priority. Pt calling to inform doctor that the patient's insurance will not pay for this medication without acompleted prior authorization. Did confirm this information with the pharmacy. Pt's current insurance information is as follows: Patient name: Jayla Hayes ID number: [id number] BIN number: [id number] PCN number: [id number] Group number: [id number] Subscriber name: Jayla Hayes Primary or Secondary Insurance:Primary Medication: Amitriptyline HCl 25 MG Oral Tablet (Elavil) Reason for Request: Prior Auth Pharmacy and phone number: [id number] [id number] [facility] [phone] Rx plan and phone number: [facility] Chandana [phone] What alternative medications does the pharmacy have in stock?: N/A Thank you, Radha Andersen Barrel Cooper [employer] 10/22/2022,8:43 AM documented in this encounter Plan of Treatment Upcoming Encounters Date Type Specialty Care Team Description 11/02/2022 [facility] Corrina Layne RN [address] [facility] [place] [address] 04/16/2023 Office Visit Family Medicine Yariel Cardoza MD [address] [place] [address] [place] [phone] Scheduled Procedures Name Priority Associated Diagnoses Date/Ti [...] filedocumented as of this encounter Care Teams Almond Blancher Operator Relationship Specialty Start Date End Date Yariel Cardoza MD [address] [place] [address] [place] [phone] PCP - General Family Medicine 12/01/18 documented as of this encounter
--- OUTSIDE RECORDS SUMMARY | 2023-06-07 07:36 | External Medical Summary | Summary of Care ---
Author Name Unknown Organization [place] [address] Care Team Providers Care Vp Production Name Role Phone Yariel Cardoza MD Primary Care Provide r Reason for Visit * Reason Onset Date Comments Med Request 10/22/2022 Pre Cert/Prior Auth 10/22/2022 Amitriptylin e HCl 25 MG Oral Tablet (Elavil) Status Check 10/22/2022 Advice 10/22/2022 Encounter Details Date Type Department Care Team Description 10/22/2022 Telephone Family Medicine [address] [id number] Yariel Cardoza MD [address] [place] [address] Med Request; Pre Cert/Prior Auth (Amitript... Allergies Active Allergy Reactions Severity Noted Date Comments Adhesive Tape 06/29/2003 Sensitive to Naproxen Hives 05/28/2015 Ivp Dye Hives 08/20/2000 Latex Other (Please comment) 01/05/2015 Contact rash Ibuprofen Rash 01/05/2015 documented as of this encounter (statuses as of 10/30/2022) Medications Medication Sig Dispensed Refills Start Date [...] . For 5 days 0 Active Nystatin 868282 UNIT/GM External Powder (Nystop)Indications:C andidal skin infection [...] as of this encounter (statuses as of 10/30/2022) Active Problems Problem Noted Date Nontoxic single [...] as of this encounter (statuses as of 10/30/2022) Resolved Problems Problem Noted Date Resolved Date [...] as of this encounter (statuses as of 10/30/2022) Immunizations Name Administration Dates Next Due COVID-19 mRNA, LNP-s, No Pre serve, 2-Dose Series ([employer]) 09/13/2021,12/16/2020,11/25/2020 Covid-19, Mrna, Lnp-s, Pf, B [...] 10/29/2022 9:44 AM EST Krystal from [facility] called advising they have begun an appeal for the denial of medication on behalf of pt. Ref# [id number] for the denial. There may be some incoming requests for information that will require a 72 hr turn around. Internalfax provided, . * Telephone Encounter - Courtney Montiel LPN - 10/26/2022 1:46 PM EST Addended office note faxed to [facility] at [phone] * Telephone Encounter - Yariel Cardoza MD [...] a response. Please call patient back at [phone]. Thank you, Enriqueta Jimenez CPhT Brazing Furnace Operator [facility] 10/24/2022,5:33 PM * Telephone Encounter - Deborah Fischer CPhT - 10/24/2022 9:18 AM EST [facility] calling to check on status of PA. [facility] needs infor by 3pm today. Thank you, Deborah Fischer Brazing Furnace Operator II [facility] 10/24/2022,9:18 AM * Telephone Encounter - MARIO Ashley Tech - 10/23/2022 10:37 AM EST [facility] calling to check on status of PA Thank you, Mallory Castillo, Telephone Solicitor Supervisor [facility] 10/23/2022,10:37 AM * Telephone Encounter - Nerissa [...] orthostatic hypotension.) To monitor utilization of TCAs, [facility] is requiring Prior Authorization of those drugs in this class that may have a significant side effect profile. Forwarding to provider to advise. Thank you, Nerissa Tate PharmD Clinical Pharmacist [facility] [phone] 10/23/2022, 10:18 AM * Telephone Encounter - MARIO Casas Tech - 10/23/2022 9:21 AM EST EOC: [id number] This is a request for additional information. [...] orthostatic hypotension. To monitor utilization of TCAs, [facility] is requiring Prior Authorization of those drugs in this class that may have a significant side effect profile. Please advise. Thank you, Bhavna Graham CPhT Dry Mill Worker Lead [facility] 10/23/2022,9:21 AM * Telephone Encounter - LIMA Guajardo - 10/23/2022 8:33 AM EST [facility] is calling to ask for clinical documentation for review. Information would need to be faxed [phone]. They would need this before 12:00 on 10/24/22. Thank you, Claudia Elmore Telephone Solicitor Supervisor [facility] 10/23/2022,8:34 AM * Telephone Encounter - MARIO Casas - 10/22/2022 10:00 AM EST Submitted information in previous note via [employer] (EOC: [id number]).. Awaiting payer response. We will follow-up with insurance starting 10/23. Per [facility] request, if no decision is received from insurance by 10/25, we will route back to the [facility] after clarifying with the pharmacy that the claim is still not processing. Thank you, Bhavna Graham CPhT Dry Mill Worker Lead [facility] 10/22/2022,10:00 AM * Telephone Encounter - Nerissa Tate [facility] - 10/22/2022 9:41 AM EST As per [...] OV with provider 07/10/2019 Telephone encounter with [facility] Please copy and paste the following [...] upon this and route back to the [facility] pool if no decision is made by the insurance by 10/25/2022, afterclarifying with the pharmacy that the claim is still not processing. If PA is denied, please also route back to [facility] pool. Thank you, Nerissa Tate PharmD Clinical Pharmacist [facility] [phone] 10/22/2022, 9:45 AM * Telephone Encounter - [...] using discount card, not sure if "Contacted [facility] pharmacy and Amitriptyline is approved and can be picked up tomorrow 08/03/22" means discount card is approved for use or if PA was completed. Found no further PA information in chart. Of note, there is nothing currently pending in [employer] for this request. Please advise how to proceed. Thank you, Bhavna Graham CPhT Dry Mill Worker Lead [facility] 10/22/2022,9:02 AM * Telephone Encounter - Radha Andersen CPhT - 10/22/2022 8:37 AM EST Pt is out of medication, asking high priority. Pt calling to inform doctor that the patient's insurance will not pay for this medication without acompleted prior authorization. Did confirm this information with the pharmacy. Pt's current insurance information is as follows: Patient name: Jayla Hayes ID number: [id number] BIN number: [id number] PCN number: [id number] Group number: [id number] Subscriber name: Jayla Hayes Primary or Secondary Insurance:Primary Medication: Amitriptyline HCl 25 MG Oral Tablet (Elavil) Reason for Request: Prior Auth Pharmacy and phone number: [id number] [id number] [facility] [phone] Rx plan and phone number: Alexander Chandana [phone] What alternative medications does the pharmacy have in stock?: N/A Thank you, Radha Andersen Telephone Solicitor Supervisor [employer] 10/22/2022,8:43 AM documented in this encounter Plan of Treatment Upcoming Encounters Date Type Specialty Care Team Description 11/02/2022 [facility] Corrina Layne RN [address] [place] [address] 04/16/2023 Office Visit Family Medicine Yariel Cardoza MD [address] [place] [address] [place] [id number] Scheduled Procedures Name Priority Associated Diagnoses Date/Ti [...] filedocumented as of this encounter Care Teams Vp Production Relationship Specialty Start Date End Date Yariel Cardoza MD [address] [place] [address] [place] [id number] PCP - General Family Medicine 12/01/18 documented as of this encounter
--- OUTSIDE RECORDS SUMMARY | 2023-06-07 07:36 | External Medical Summary | Summary of Care ---
Author Name Unknown Organization [place] [address] Care Team Providers Care Crop Farmers Name Role Phone Yariel Cardoza MD Primary Care Provide r Reason for Visit * Reason Onset Date Comments Med Request 10/22/2022 Pre Cert/Prior Auth 10/22/2022 Amitriptylin e HCl 25 MG Oral Tablet (Elavil) Status Check 10/22/2022 Advice 10/22/2022 Encounter Details Date Type Department Care Team Description 10/22/2022 Telephone Family Medicine [address] [address] Yariel Cardoza MD [address] [place] [address] Med Request; Pre Cert/Prior Auth (Amitript... [...] . For 5 days 0 Active Nystatin 079044 UNIT/GM External Powder (Nystop)Indications:C andidal skin infection [...] mRNA, LNP-s, No Pre serve, 2-Dose Series ([employer]) 09/13/2021,12/16/2020,11/25/2020 Covid-19, Mrna, Lnp-s, Pf, B ivalent [...] encounter Miscellaneous Notes * Telephone Encounter - Flaquita Uriarte [facility] - 10/31/2022 9:36 AM EST [facility] needs to see "medical record documentation that the prescriber has indicated the benefits of the requested high risk medication outweigh the risks for the patient" Please advise if this documentation is available. Thank you, Flaquita Uriarte, PharmD Staff Pharmacist [facility] 10/31/22 9:44 AM [phone] Electronically signed by Flaquita Uriarte [facility] at 10/31/2022 9:45 AM EST * Telephone Encounter - Manuela Donahue CPhT [...] AND. Prior authorization entered in PromptPA at [facility]. EOC# EOC [id number] Please fax to [phone] before 10/31/2022. Thank you, Manuela Donahue Instructional Paraprofessional [facility] 10/30/2022, 6:57 PM * Telephone Encounter - VIRA Blount - 10/29/2022 9:44 AM EST Krystal from [facility] called advising they have begun an appeal for the denial of medication on behalf of pt. Ref# [id number] for the denial. There may be some incoming requests for information that will require a 72 hr turn around. Internalfax provided, . * Telephone Encounter - Courtney Montiel LPN - 10/26/2022 1:46 PM EST Addended office note faxed to [facility] at [phone] * Telephone Encounter - Yariel Cardoza MD [...] a response. Please call patient back at [phone]. Thank you, Enriqueta Jimenez CPhT Geospatial Engineer [facility] 10/24/2022,5:33 PM * Telephone Encounter - Deborah Fischer CPhT - 10/24/2022 9:18 AM EST [facility] calling to check on status of PA. [facility] needs infor by 3pm today. Thank you, Deborah Fischer Geospatial Engineer II [facility] 10/24/2022,9:18 AM * Telephone Encounter - MARIO Ashley - 10/23/2022 10:37 AM EST [facility] calling to check on status of PA Thank you, Mallory Castillo, Instructional Paraprofessional [facility] 10/23/2022,10:37 AM * Telephone Encounter - Nerissa [...] orthostatic hypotension.) To monitor utilization of TCAs, [facility] is requiring Prior Authorization of those drugs in this class that may have a significant side effect profile. Forwarding to provider to advise. Thank you, Nerissa Tate PharmD Clinical Pharmacist [facility] [phone] 10/23/2022, 10:18 AM * Telephone Encounter - MARIO Casas - 10/23/2022 9:21 AM EST EOC: [id number] This is a request for additional information. [...] orthostatic hypotension. To monitor utilization of TCAs, [facility] is requiring Prior Authorization of those drugs in this class that may have a significant side effect profile. Please advise. Thank you, Bhavna Graham CPhT Rag Cutting Machine Operator Lead [facility] 10/23/2022,9:21 AM * Telephone Encounter - LIMA Guajardo - 10/23/2022 8:33 AM EST [facility] is calling to ask for clinical documentation for review. Information would need to be faxed [phone]. They would need this before 12:00 on 10/24/22. Thank you, Claudia Elmore Instructional Paraprofessional [facility] 10/23/2022,8:34 AM * Telephone Encounter - MARIO Casas - 10/22/2022 10:00 AM EST Submitted information in previous note via [employer] (EOC: [id number]).. Awaiting payer response. We will follow-up with insurance starting 10/23. Per [facility] request, if no decision is received from insurance by 10/25, we will route back to the [facility] after clarifying with the pharmacy that the claim is still not processing. Thank you, Bhavna Graham CPhT Rag Cutting Machine Operator Lead [facility] 10/22/2022,10:00 AM * Telephone Encounter - Nerissa Tate [facility] - 10/22/2022 9:41 AM EST As per [...] OV with provider 07/10/2019 Telephone encounter with [facility] Please copy and paste the following [...] this and route back to the [facility] if no decision is made by the insurance by 10/25/2022, afterclarifying with the pharmacy that the claim is still not processing. If PA is denied, please also route back to [facility]. Thank you, Nerissa Tate PharmD Clinical Pharmacist Telepharmacy [phone] 10/22/2022, 9:45 AM * Telephone Encounter - [...] needs prior authorization This PA is for [employer] but a PA was completed through [employer] back in April and was approved. From TE 07/28/2022, pharmacy asked if it was OK to fill using discount card, not sure if "Contacted [facility] pharmacy and Amitriptyline is approved and can be picked up tomorrow 08/03/22" means discount card is approved for use or if PA was completed. Found no further PA information in chart. Of note, there is nothing currently pending in [employer] for this request. Please advise how to proceed. Thank you, Bhavna Graham [facility] Rag Cutting Machine Operator Lead [facility] 10/22/2022,9:02 AM * Telephone Encounter - Radha Andersen CPhT - 10/22/2022 8:37 AM EST Pt is out of medication, asking high priority. Pt calling to inform doctor that the patient's insurance will not pay for this medication without acompleted prior authorization. Did confirm this information with the pharmacy. Pt's current insurance information is as follows: Patient name: Jayla Hayes ID number: [id number] BIN number: [id number] PCN number: [id number] Group number: [id number] Subscriber name: Jayla Hayes Primary or Secondary Insurance:Primary Medication: Amitriptyline HCl 25 MG Oral Tablet (Elavil) Reason for Request: Prior Auth Pharmacy and phone number: [facility]Y [id number] [phone] Rx plan and phone number: Alexander Chandana [phone] What alternative medications does the pharmacy have in stock?: N/A Thank you, Radha Andersen Instructional Paraprofessional [facility] [facility] 10/22/2022,8:43 AM documented in this encounter Plan of Treatment Upcoming Encounters Date Type Specialty Care Team Description 11/[facility] [place] Corrina Layne RN [address] [place] [address] [place] [address] 04/16/2023 Office Visit Family Medicine Yariel Cardoza MD [address] [place] [address] [place] [phone] Scheduled Procedures Name Priority Associated Diagnoses Date/Ti [...] filedocumented as of this encounter Care Teams Crop Farmers Relationship Specialty Start Date End Date Yariel Cardoza MD [address] [place] [address] [place] [address] PCP - General Family Medicine 12/01/18 documented as of this encounter
--- OUTSIDE RECORDS SUMMARY | 2023-06-07 07:36 | External Medical Summary | Summary of Care ---
Author Name Unknown Organization [place] [address] Care Team Providers Care Umbrella Tipper Name Role Phone Yariel Cardoza MD Primary Care Provide r Reason for Visit * Reason Onset Date Comments Med Request 10/22/2022 Pre Cert/Prior Auth 10/22/2022 Amitriptylin e HCl 25 MG Oral Tablet (Elavil) Status Check 10/22/2022 Advice 10/22/2022 Encounter Details Date Type Department Care Team Description 10/22/2022 Telephone Family Medicine [address] [address] Yariel Cardoza MD [address] [place] [address] Med Request; Pre Cert/Prior Auth (Amitript... [...] . For 5 days 0 Active Nystatin 515898 UNIT/GM External Powder (Nystop)Indications:C andidal skin infection [...] mRNA, LNP-s, No Pre serve, 2-Dose Series ([employer]) 09/13/2021,12/16/2020,11/25/2020 Covid-19, Mrna, Lnp-s, Pf, B ivalent [...] info * Telephone Encounter - Flaquita Uriarte [facility] - 10/31/2022 9:36 AM EST [facility] needs to see "medical record documentation that the prescriber has indicated the benefits of the requested high risk medication outweigh the risks for the patient" Please advise if this documentation is available. Thank you, Flaquita Uriarte, PharmD Staff Pharmacist [facility] 10/31/22 9:44 AM [phone] Electronically signed by Flaquita Uriarte [facility] at 10/31/2022 9:45 AM EST * Telephone [...] AND. Prior authorization entered in PromptPA at [facility]. EOC# EOC [id number] Please fax to [phone] before 10/31/2022. Thank you, Manuela Donahue Sales Representative Gas [employer] [facility] 10/30/2022, 6:57 PM * Telephone Encounter - VIRA Blount - 10/29/2022 9:44 AM EST Krystal from [facility] called advising they have begun an appeal for the denial of medication on behalf of pt. Ref# [id number] for the denial. There may be some incoming requests for information that will require a 72 hr turn around. Intern[employer] provided, . * Telephone Encounter - Courtney Montiel LPN - 10/26/2022 1:46 PM EST Addended office note faxed to [facility] at [phone] * Telephone Encounter - Yariel Cardoza MD [...] a response. Please call patient back at [phone]. Thank you, Enriqueta Jimenez CPhT Auto Body Repairer [facility] 10/24/2022,5:33 PM * Telephone Encounter - Deborah Fischer CPhT - 10/24/2022 9:18 AM EST [facility] calling to check on status of PA. [facility] needs infor by 3pm today. Thank you, Deborah Fischer Auto Body Repairer II [facility] 10/24/2022,9:18 AM * Telephone Encounter - MARIO Ashley - 10/23/2022 10:37 AM EST [facility] calling to check on status of PA Thank you, Mallory Castillo, Sales Representative [employer] [facility] 10/23/2022,10:37 AM * Telephone Encounter - [...] orthostatic hypotension.) To monitor utilization of TCAs, [facility] is requiring Prior Authorization of those drugs in this class that may have a significant side effect profile. Forwarding to provider to advise. Thank you, Nerissa Tate PharmD Clinical Pharmacist [facility] [phone] 10/23/2022, 10:18 AM * Telephone Encounter - MARIO Casas - 10/23/2022 9:21 AM EST EOC: [id number] This is a request for additional information. [...] orthostatic hypotension. To monitor utilization of TCAs, [facility] is requiring Prior Authorization of those drugs in this class that may have a significant side effect profile. Please advise. Thank you, Bhavna Graham CPhT Data Operations Director Lead [facility] 10/23/2022,9:21 AM * Telephone Encounter - LIMA Guajardo - 10/23/2022 8:33 AM EST [facility] is calling to ask for clinical documentation for review. Information would need to be faxed [phone]. They would need this before 12:00 on 10/24/22. Thank you, Claudia Elmore Sales Representative Gas Service [facility] 10/23/2022,8:34 AM * Telephone Encounter - MARIO Casas - 10/22/2022 10:00 AM EST Submitted information in previous note via [employer] (EOC: [id number]).. Awaiting payer response. We will follow-up with insurance starting 10/23. Per [facility] request, if no decision is received from insurance by 10/25, we will route back to the [facility] after clarifying with the pharmacy that the claim is still not processing. Thank you, Bhavna Graham quality control assistant Data Operations Director Lead [facility] 10/22/2022,10:00 AM * Telephone Encounter - Nerissa Tate [facility] - 10/22/2022 9:41 AM EST As per [...] OV with provider 07/10/[address] [facility] Please copy and paste the following [...] upon this and route back to the [facility] pool if no decision is made by the insurance by 10/25/2022, afterclarifying with the pharmacy that the claim is still not processing. If PA is denied, please also route back to [facility] pool. Thank you, Nerissa Tate PharmD Clinical Pharmacist Telepharm[facility] [phone] 10/22/2022, 9:45 AM * Telephone Encounter - MARIO Casas Tech - 10/22/2022 9:02 AM EST Amitriptyline HCl [...] needs prior authorization This PA is for [employer] but a PA was completed through [employer] back in April and was approved. From TE 07/28/2022, pharmacy asked if it was OK to fill using discount card, not sure if "Contacted [facility] pharmacy and Amitriptyline is approved and can be picked up tomorrow 08/03/22" means discount card is approved for use or if PA was completed. Found no further PA information in chart. Of note, there is nothing currently pending in [facility] for this request. Please advise how to proceed. Thank you, Bhavna Graham CPhT Data Operations Director Lead [facility] 10/22/2022,9:02 AM * Telephone Encounter - Radha Andersen CPhT - 10/22/2022 8:37 AM EST Pt is out of medication, asking high priority. Pt calling to inform doctor that the patient's insurance will not pay for this medication without acompleted prior authorization. Did confirm this information with the pharmacy. Pt's current insurance information is as follows: Patient name: Jayla Hayes ID number: [id number] BIN number: [id number] PCN number: [id number] Group number: [id number] Subscriber name: Jayla Hayes Primary or Secondary Insurance:Primary Medication: Amitriptyline HCl 25 MG Oral Tablet (Elavil) Reason for Request: Prior Auth Pharmacy and phone number: [id number] [phone] Rx plan and phone number: Julio[facility]iekyleigh Chandana [phone] What alternative medications does the pharmacy have in stock?: N/A Thank you, Radha Andersen Sales Representative Gas Service [facility] 10/22/2022,8:43 AM documented in this encounter Plan of Treatment Upcoming Encounters Date Type Specialty Care Team Description 11/02/2022 [facility] Visit [facility] [place] Corrina Layne RN [address] [place] [address] 04/16/2023 Office Visit Family Medicine Yariel Cardoza MD [address] [place] [address] [place] [phone] Scheduled Procedures Name Priority Associated Diagnoses Date/Ti [...] filedocumented as of this encounter Care Teams Umbrella Tipper Relationship Specialty Start Date End Date Yariel Cardoza MD [address] [place] [address] [place] [address] PCP - General Family Medicine 12/01/18 documented as of this encounter
--- OUTSIDE RECORDS SUMMARY | 2023-06-07 07:36 | External Medical Summary | Summary of Care ---
Author Name Unknown Organization [place] [address] Care Team Providers Care Cake Maker Name Role Phone Yariel Cardoza MD Primary Care Provide r Reason for Visit * Reason Onset Date Comments Med Request 10/22/2022 Pre Cert/Prior Auth 10/22/2022 Amitriptylin e HCl 25 MG Oral Tablet (Elavil) Status Check 10/22/2022 Advice 10/22/2022 Encounter Details Date Type Department Care Team Description 10/22/2022 Telephone Family Medicine [address] [id number] Yariel Cardoza MD [address] [place] [address] Med Request; Pre Cert/Prior Auth (Amitript... [...] . For 5 days 0 Active Nystatin 083828 UNIT/GM External Powder (Nystop)Indications:C andidal skin infection [...] mRNA, LNP-s, No Pre serve, 2-Dose Series ([employer]) 09/13/2021,12/16/2020,11/25/2020 Covid-19, Mrna, Lnp-s, Pf, B ivalent [...] the patient AND. Prior authorization entered in [employer] at [facility]. EOC# [id number] Please fax to [phone] before 10/31/2022. Thank you, Manuela Donahue Systems Analyst Developer [facility] 10/30/2022, 6:57 PM * Telephone Encounter - VIRA Blount - 10/29/2022 9:44 AM EST Krystal from [facility] called advising they have begun an appeal for the denial of medication on behalf of pt. Ref# [id number] for the denial. There may be some incoming requests for information that will require a 72 hr turn around. [employer] provided, . * Telephone Encounter - Courtney Montiel LPN - 10/26/2022 1:46 PM EST Addended office note faxed to [facility] at [phone] * Telephone Encounter - Yariel Cardoza MD [...] a response. Please call patient back at [phone]. Thank you, Enriqueta Jimenez CPhT Lead Systems Architect [facility] 10/24/2022,5:33 PM * Telephone Encounter - Deborah Fischer CPhT - 10/24/2022 9:18 AM EST [facility] calling to check on status of PA. [facility] needs infor by 3pm today. Thank you, Deborah Fischer Lead Systems Architect [facility] 10/24/2022,9:18 AM * Telephone Encounter - MARIO Ashley - 10/23/2022 10:37 AM EST p calling to check on status of PA Thank you, Mallory Castillo, Systems Analyst Developer [facility] 10/23/2022,10:37 AM * Telephone Encounter - Nerissa [...] orthostatic hypotension.) To monitor utilization of TCAs, [employer] [facility] is requiring Prior Authorization of those drugs in this class that may have a significant side effect profile. Forwarding to provider to advise. Thank you, Nerissa Tate PharmD Clinical Pharmacist [facility] [phone] 10/23/2022, 10:18 AM * Telephone Encounter - MARIO Casas - 10/23/2022 9:21 AM EST EOC: [id number] This is a request for additional information. [...] orthostatic hypotension. To monitor utilization of TCAs, [employer] [facility] is requiring Prior Authorization of those drugs in this class that may have a significant side effect profile. Please advise. Thank you, Bhavna Graham CPhT Seasonal Driver Lead [facility] 10/23/2022,9:21 AM * Telephone Encounter - LIMA Guajardo - 10/23/2022 8:33 AM EST [facility] is calling to ask for clinical documentation for review. Information would need to be faxed [phone]. They would need this before 12:00 on 10/24/22. Thank you, Claudia Elmore Systems Analyst [facility] 10/23/2022,8:34 AM * Telephone Encounter - MARIO Casas - 10/22/2022 10:00 AM EST Submitted information in previous note via [employer] (EOC: [id number]).. Awaiting payer response. We will follow-up with insurance starting 10/23. Per [facility] request, if no decision is received from insurance by 10/25, we will route back to the [facility] after clarifying with the pharmacy that the claim is still not processing. Thank you, Bhavna Graham CPhT Seasonal Driver Lead [facility] 10/22/2022,10:00 AM * Telephone Encounter - Nerissa Tate, [facility] - 10/22/2022 9:41 AM EST As [...] OV with provider 07/10/2019 Telephone encounter with [facility] Please copy and paste the following [...] and route back to the [facility] pool if no decision is made by the insurance by 10/25/2022, afterclarifying with the pharmacy that the claim is still not processing. If PA is denied, please also route back to [facility] pool. Thank you, Nerissa Tate PharmD Clinical Pharmacist [facility] [phone] 10/22/2022, 9:45 AM * Telephone Encounter - [...] needs prior authorization This PA is for [employer] but a PA was completed through [employer] back in April and was approved. From TE 07/28/2022, pharmacy asked if it was OK to fill using discount card, not sure if "Contacted [facility] pharmacy and Amitriptyline is approved and can be picked up tomorrow 08/03/22" means discount card is approved for use or if PA was completed. Found no further PA information in chart. Of note, there is nothing currently pending in [facility] for this request. Please advise how to proceed. Thank you, Bhavna Graham CPhT Seasonal Driver Lead [facility] 10/22/2022,9:02 AM * Telephone [...] follows: Patient name: Jayla Hayes ID number: [id number] BIN number: [id number] N [id number]: [id number] Group number: [id number] Subscriber name: Jayla Hayes Primary or Secondary Insurance:Primary Medication: Amitriptyline HCl 25 MG Oral Tablet (Elavil) Reason for Request: Prior Auth Pharmacy and phone number: [id number] [id number] [facility] [phone] Rx plan and phone number: [facility] [phone] What alternative medications does the pharmacy have in stock?: N/A Thank you, Radha Andersen Systems Analyst Developer [facility] 10/22/2022,8:43 AM documented in this encounter Plan of Treatment Upcoming Encounters Date Type Specialty Care Team Description 11/02/2022 [facility] Visit [facility] Corrina Layne RN [address] [place] [address] [place] [id number] 04/16/2023 Office Visit Family Medicine Yariel Cardoza MD [address] [place] [address] [place] Pedroza [id number] Scheduled Procedures Name Priority Associated Diagnoses Date/Ti [...] filedocumented as of this encounter Care Teams Cake Maker Relationship Specialty Start Date End Date Yariel Cardoza MD [address] [place] [address] [place] [address] PCP - General Family Medicine 12/01/18 documented as of this encounter
--- OUTSIDE RECORDS SUMMARY | 2023-06-07 07:36 | External Medical Summary | Summary of Care ---
Author Name Unknown Organization [place] [address] Care Team Providers Care Music Assistant Name Role Phone Yariel Cardoza MD Primary Care Provide r Reason for Visit * Reason Onset Date Comments Med Request 10/22/2022 Pre Cert/Prior Auth 10/22/2022 Amitriptylin e HCl 25 MG Oral Tablet (Elavil) Status Check 10/22/2022 Advice 10/22/2022 Encounter Details Date Type Department Care Team Description 10/22/2022 Telephone Family Medicine [address] [phone] Yariel Cardoza MD [address] [place] [address] Med Request; Pre Cert/Prior Auth (Amitript... [...] . For 5 days 0 Active Nystatin 303173 UNIT/GM External Powder (Nystop)Indications:C andidal skin infection [...] mRNA, LNP-s, No Pre serve, 2-Dose Series ([employer]) 09/13/2021,12/16/2020,11/25/2020 Covid-19, Mrna, Lnp-s, Pf, B ivalent [...] Miscellaneous Notes * Telephone Encounter - Flaquita Uriarte, [facility] - 10/31/2022 11:37 AM EST Reached out to [facility] via teams to provide updated OV note. Please continue to follow up on this and route back to the [facility] pool if no decision is made by the insurance by 11/02, after clarifying with the pharmacy that the claim is still not processing. If PA is denied, please also route back to [facility] pool. Thank you, Flaquita Uriarte PharmD Staff Pharmacist [facility] 10/31/22 11:37 AM [phone] * Telephone Encounter - Yariel Cardoza MD - 10/31/2022 11:18 AM EST Addended OV from 06/22/2022 with the info * Telephone Encounter - Flaquita Uriarte [facility] - 10/31/2022 9:36 AM EST [facility] needs to see "medical record documentation that the prescriber has indicated the benefits of the requested high risk medication outweigh the risks for the patient" Please advise if this documentation is available. Thank you, Flaquita Uriarte PharmD Staff Pharmacist [facility] 10/31/22 9:44 AM [phone] * Telephone Encounter - Manuela Donahue CPhT [...] AND. Prior authorization entered in [employer] at [facility]. EOC# [id number] Please fax to [phone] before 10/31/2022. Thank you, Manuela Donahue Patient Service Rep [facility] 10/30/2022, 6:57 PM * Telephone Encounter - VIRA Blount - 10/29/2022 9:44 AM EST Krystal from [facility] called advising they have begun an appeal for the denial of medication on behalf of pt. Ref# [id number] for the denial. There may be some incoming requests for information that will require a 72 hr turn around. [facility], . * Telephone Encounter - Courtney Montiel LPN - 10/26/2022 1:46 PM EST Addended office note faxed to [facility] at [phone] * Telephone Encounter - Yariel Cardoza MD [...] a response. Please call patient back at [phone]. Thank you, Enriqueta Jimenez CPhT Cinder Worker [facility] 10/24/2022,5:33 PM * Telephone Encounter - Deborah Fischer CPhT - 10/24/2022 9:18 AM EST [facility] calling to check on status of PA. [facility] needs infor by 3pm today. Thank you, Deborah Fischer Cinder Worker II [email or web address] 10/24/2022,9:18 AM * Telephone Encounter - MARIO Ashley - 10/23/2022 10:37 AM EST p calling to check on status of PA Thank you, Mallory Castillo, Patient Service Rep [email or web address] 10/23/2022,10:37 AM * Telephone Encounter - Nerissa [...] orthostatic hypotension.) To monitor utilization of TCAs, [facility] [employer].me [facility] is requiring Prior Authorization of those drugs in this class that may have a significant side effect profile. Forwarding to provider to advise. Thank you, Nerissa Tate PharmD Clinical Pharmacist [facility] [phone] 10/23/2022, 10:18 AM * Telephone Encounter - MARIO Casas - 10/23/2022 9:21 AM EST EOC: [id number] This is a request for additional information. [...] orthostatic hypotension. To monitor utilization of TCAs, [employer] [facility] is requiring Prior Authorization of those drugs in this class that may have a significant side effect profile. Please advise. Thank you, Bhavna Graham [facility] Strainer Tender Lead [facility] 10/23/2022,9:21 AM * Telephone Encounter - LIMA Guajardo - 10/23/2022 8:33 AM EST [facility] is calling to ask for clinical documentation for review. Information would need to be faxed [phone]. They would need this before 12:00 on 10/24/22. Thank you, Claudia Elmore Patient Service Rep [facility] 10/23/2022,8:34 AM * Telephone Encounter - MARIO Casas - 10/22/2022 10:00 AM EST Submitted information in previous note via [employer] (EOC: [id number]).. Awaiting payer response. We will follow-up with insurance starting 10/23. Per [facility] request, if no decision is received from insurance by 10/25, we will route back to the [facility] after clarifying with the pharmacy that the claim is still not processing. Thank you, Bhavna Graham CPhT Strainer Tender Lead [facility] 10/22/2022,10:00 AM * Telephone Encounter - Nerissa Tate RPh - 10/22/2022 9:41 AM EST As per [...] OV with provider 07/10/2019 Telephone encounter with [facility] Please copy and paste the following [...] upon this and route back to the [facility] pool if no decision is made by the insurance by 10/25/2022, afterclarifying with the pharmacy that the claim is still not processing. If PA is denied, please also route back to [facility] pool. Thank you, Nerissa Tate PharmD Clinical Pharmacist [facility] [phone] 10/22/2022, 9:45 AM * Telephone Encounter - [...] needs prior authorization This PA is for [employer] but a PA was completed through [employer] back in April and was approved. From TE 07/28/2022, pharmacy asked if it was OK to fill using discount card, not sure if "Contacted [facility] pharmacy and Amitriptyline is approved and can be picked up tomorrow 08/03/22" means discount card is approved for use or if PA was completed. Found no further PA information in chart. Of note, there is nothing currently pending in [employer] for this request. Please advise how to proceed. Thank you, Bhavna Graham CPhT Strainer Tender Lead [facility] 10/22/2022,9:02 AM * Telephone Encounter - Radha Andersen CPhT - 10/22/2022 8:37 AM EST Pt is out of medication, asking high priority. Pt calling to inform doctor that the patient's insurance will not pay for this medication without acompleted prior authorization. Did confirm this information with the pharmacy. Pt's current insurance information is as follows: Patient name: Jayla Hayes ID number: [id number] BIN number: [id number] PCN number: [id number] Group number: [id number] Subscriber name: Jayla Hayes Primary or Secondary Insurance:Primary Medication: Amitriptyline HCl 25 MG Oral Tablet (Elavil) Reason for Request: Prior Auth Pharmacy and phone number: [id number] [facility] [phone] Rx plan and phone number: [facility]ana [phone] What alternative medications does the pharmacy have in stock?: N/A Thank you, Radha Andersen Patient Service Rep [facility] 10/22/2022,8:43 AM documented in this encounter Plan of Treatment Upcoming Encounters Date Type Specialty Care Team Description 11/02/2022 Home Visit [facility] Corrina Layne RN [address] [facility] [place] [address] 04/16/2023 Office Visit Family Medicine Yariel Cardoza MD [address] [place] [address] [place] [address] Scheduled Procedures Name Priority [...] filedocumented as of this encounter Care Teams Music Assistant Relationship Specialty Start Date End Date Yariel Cardoza MD [address] [place] [address] [place] [id number] PCP - General Family Medicine 12/01/18 documented as of this encounter
--- OUTSIDE RECORDS SUMMARY | 2023-06-07 07:36 | External Medical Summary | Summary of Care ---
Author Name Unknown Organization [place] [address] Care Team Providers Care [employer] Consultant Name Role Phone Yariel Cardoza MD Primary Care Provide r Reason for Visit * Reason Comments Re-Check Encounter Details Date Type Department Care Team Description 06/22/2022 Office Visit Family Medicine [address] [place] [address] Yariel Cardoza MD [address] [place] [address] CLARK Pedroza [phone] COPD, severe (HCC)*; Hypomagnesemia; HTN, goal below 140/90; Nontoxic single thyroid nodule; Gastro-esophageal reflux disease without esophagitis; Occlusion and stenosis of right vertebral artery; Prediabetes; Peripheral vascular disease (HCC); Severe obesity with body mass index (BMI) of 35.0 to 39.9 with serious comorbidity (HCC); Dyslipidemia, goal LDL below 100 Allergies Active Allergy Reactions Severity Noted Date Comments Adhesive Tape 06/29/2003 Sensitive to Naproxen Hives 05/28/2015 Ivp Dye Hives 08/20/2000 Latex Other (Please comment) 01/05/2015 Contact rash Ibuprofen Rash 01/05/2015 documented as of this encounter (statuses as of 10/31/2022) Medications Medication Sig Dispensed Refills Start Date End Date Status oxygen GASIndications:Hyp oxia Use 2 L/min(Oxygen) as directed continuous. 1 Each 0 7 Active VENTOLIN HFA 108 (90 Base) MCG/ACT inhaler INHALE 2 PUFFS BY MOUTH EVERY 4 HOURS NEEDED FOR WHEEZING. 1 Inhaler 5 8 Active umeclidinium-vilan terol (ANORO ELLIPTA) 62.5-25 MCG/INH AEPBIndications:CO PD Inhale by mouth 1 Puff daily . 0 Active Dextromethorphan-g uaiFENesin (CORICIDIN HBP CONGESTION/COUGH) 10-200 MG CAPS Take by mouth. Every 4-6 hours as needed for cough 0 Active Cholecalciferol 1000 units Capsule Take 2,000 Units by mouth daily. 0 Active albuterol-ipratrop ium (DUONEB) 2.5-0.5 MG/3ML nebulizer solutionIndication s:COPD, severe (HCC) INHALE 3 MLS VIA NEBULIZER EVERY 4 HOURS NEEDED FOR COUGH, SHORTNESS OF BREATH OR WHEEZING. 360 mL 1 0 Active Meclizine HCl 25 MG Oral Tablet (Antivert) TAKE 1 TABLET BY MOUTH ONCE EVERY 6 HOURS NEEDED FOR DIZZINESS/PRISCILLA TIGO 10 Tab 0 1 Active Bisacodyl 5 MG Oral Tablet Delayed Release (Dulcolax) Take by mouth 10 mg at bedtime . 0 Active Naphazoline-Phenir amine 0.025-0.3 % Ophthalmic Solution (Naphcon-A)Indicat ions:1-2 drops each eye as needed for eye irritation 1 Drop 3 times a day . 0 Active Polyethylene Glycol 3350 17 GM/SCOOP Oral Powder (MiraLax) Take 17 g by mouth 2 times a day. 0 Active Benzonatate 100 MG Oral Capsule (Tessalon Perles)Indications :Viral illness Take 1 Capsule by mouth 3 times a day as needed for Cough. 30 Capsule 1 1 Active Zoster Vac Recomb Adjuvanted 50 MCG/0.5ML Intramuscular Suspension Reconstituted (Shingrix)Indicati ons:Need for vaccination for zoster Inject 0.5 mL into a large muscle now and repeat dose in 60 to 180 days 1 Each 0 2 Active Budesonide 0.5 MG/2ML Inhalation Suspension (Pulmicort)Indicat ions:COPD, severe (HCC) INHALE ONE UNIT DOSE VIAL VIA NEBULIZER TWO TIMES A DAY. 120 mL 5 2 Active Potassium Chloride ER 10 MEQ Oral Tablet Extended Release TAKE 1 TABLET BY MOUTH EVERY DAY 90 Tablet 3 2 Active Omeprazole 20 MG Oral Capsule Delayed Release (PriLOSEC)Indicati ons:Gastroesophage al reflux disease without esophagitis TAKE 2 CAPSULES BY MOUTH EVERY DAY 180 Capsule 3 2 Active Atorvastatin Calcium 40 MG Oral Tablet (Lipitor) TAKE 1 TABLET BY MOUTH EVERY DAY 90 Tablet 3 2 Active Dicyclomine HCl 10 MG Oral Capsule (Bentyl)Indication s:Irritable bowel syndrome with both constipation and diarrhea TAKE ONE CAPSULE BY MOUTH 4 TIMES DAILY NEEDED FOR ABDOMINAL PAIN, CRAMPING 360 Capsule 1 2 Active traMADol HCl 50 MG Oral Tablet (Ultram) 50 mg . 0 2 Active DM-guaiFENesin ER 30-600 MG Oral Tablet Extended Release 12 Hour Take by mouth 1 Tablet every 12 hours . For 5 days 0 Active Nystatin 569975 UNIT/GM External Powder (Nystop)Indication s:Candidal skin infection APPLY TOPICALLY TO AFFECTED AREA 3 TIMES A DAY. 60 g 1 2 Active Furosemide 40 MG Oral Tablet (Lasix)Indications :Bilateral lower extremity edema Take by mouth 1 Tablet in the morning. As needed for swelling or fluid accumulation. 30 Tablet 0 2 Active hydroCHLOROthiazid e 25 MG Oral Tablet (Hydrodiuril) TAKE 1 TABLET BY MOUTH EVERY DAY IN THE MORNING 90 Tablet 2 2 Active Clopidogrel Bisulfate 75 MG Oral Tablet (pLAVix)Indication s:Stenosis of right vertebral artery,TIA (transient ischemic attack) TAKE 1 TABLET BY MOUTH EVERY DAY 90 Tablet 2 2 Active Atenolol 25 MG Oral Tablet (Tenormin)Indicati ons:HTN, goal below 140/90 TAKE 1 TABLET BY MOUTH EVERY DAY 90 Tablet 1 2 Active Losartan Potassium 50 MG Oral Tablet (Cozaar)Indication s:HTN, goal below 140/90 Take by mouth 1 Tablet in the morning. 90 Tablet 1 2 Active Azithromycin 250 MG Oral Tablet (Zithromax) Take by mouth 250 mg daily . MWF only 0 2 Active Ondansetron 4 MG Oral Tablet Disintegrating Place 1 Tablet on tongue every 8 hours as needed for Nausea. 30 Tablet 0 1 07/09/20 22 Discontinued Amitriptyline HCl 25 MG Oral Tablet (Elavil) TAKE 1 TABLET BY MOUTH EVERYDAY AT BEDTIME 90 Tablet 1 2 07/28/20 22 Discontinued Magnesium Oxide 500 MG Oral Tablet Take by mouth 500 mg in the morning AND 500 mg before bedtime. 0 2 07/19/20 22 Discontinued(Ref ill) Cephalexin 500 MG Oral Capsule (Keflex) Take by mouth 500 mg 2 times a day . 0 2 08/10/20 22 Discontinued documented as of this encounter (statuses [...] mRNA, LNP-s, No Pre serve, 2-Dose Series (impok) 09/13/2021,12/16/2020,11/25/2020 Covid-19, Mrna, Lnp-s, Pf, B ivalent [...] Sign Reading Time Taken Comments Blood Pressure 154/78 06/22/2022 10:19 AM EDT Pulse 81 06/22/2022 10:19 AM EDT Temperature 36.8 C (98.2 F) 06/22/2022 10:19 AM E DT Respiratory Rate 18 06/22/2022 10:19 AM EDT Oxygen Saturation 91% 06/22/2022 10:19 AM EDT Inhaled Oxygen Concentration - - Weight 90.4 kg (199 lb 6.4 oz) 06/22/2022 10:19 AM EDT Height 154.9 cm (5' 1") 06/22/2022 10:19 AM EDT Body Mass Index 37.68 06/22/2022 10:19 AM EDT documented in this encounter Progress Notes * Yariel Cardoza MD - 10/25/2022 1:33 PM EST ADDENDUM: Patient takes amitriptyline for her irritable bowel syndrome and depression. The medications works well and denies side effects. She has been stable on this medication without adverse events since June of 2019. The benefits of the requested high risk medication outweigh the risks forthe patient * Yariel Cardoza MD - 06/22/2022 10:31 AM EDT Subjective: Jayla Hayes is a 76 year old female. Chief Complaint Patient presents with Re-Check HPI: Brief Clinical History Ms. Hayes is a 76 year old woman last seen in Family Medicine 2 months ago (04-16-22). She has h/o COPD, COPD, severe (HCC), depression, Moderate episode of recurrent major depressive disorder (HCC), morbid obesity, Peripheral vascular disease (HCC), Severe obesity with body mass index (BMI) of 35.0to 39.9 with serious comorbidity (HCC), and vascular disease. Went to the ED on 06/19/22 after developing pain in her right finger while washing dishes and then her right hand and arm then started shaking and felt weak. She went to the ED and had negative head and cervical spine CT. She was diagnosed with a UTI and low magnesium. Was put on an antibiotic and magnesium supplement. Just picked up the magnesium yesterday and took one last night and one this morning. To be taking it twice a day. Is on the antibiotic. No dysuria, frequency, or urgency. Is stillhaving leg weakness. She was extremely weak when she was at the ER and improved now. Saw Dr. Andrews for her right ankle pain. Was put in a boot. States he found that her tendons were weak. Is not able to wear the boot because it causes a lot of pain. It is feeling better. Was using her oxygen more but her breathing was good yesterday. Needed 4L of oxygen while she was in the ER. Is enrolled in [employer] [facility]. Follows with pulmonary at [facility], Dr. Mayer. Is on Zithromax MWF for her COPD. Planning to get flu shot in July and will schedule the updated booster. Planning on getting the Shingrix at the pharmacy. Results for orders placed or performed in visit on 11/28/21 MAGNESIUM Result Value Ref Range Magnesium 2.2 1.5 - 2.6 mg/dL LIPID PANEL WITH DIRECT LDL IF TG IS HIGH Result Value Ref Range Triglycerides 118 <=174 mg/dL Cholesterol 145 <200 mg/dL HDL Cholesterol 42 (L) >49 mg/dL Non-HDL Cholesterol 103 <=159 mg/dL LDL Cholesterol 79 <=129 mg/dL COMPREHENSIVE METABOLIC PANEL Result Value Ref Range BUN 17 6 - 20 mg/dL Creatinine 0.8 0.5 - 1.0 mg/dL Estimated Glomerular Filtration Rate 74 >=60 mL/min Sodium 143 135 - 146 mmol/L Potassium 4.7 3.5 - 5.1 mmol/L Chloride 101 98 - 107 mmol/L CO2 30 22 - 32 mmol/L Anion Gap 12 7 - 15 mmol/L Glucose 113 70 - 120 mg/dL Albumin 4.3 3.8 - 5.0 g/dL AST 30 10 - 35 U/L Alkaline Phosphatase 119 35 - 130 U/L Bilirubin, Total 0.4 <=1.2 mg/dL Calcium 10.1 8.4 - 10.2 mg/dL Protein 6.7 6.0 - 8.3 g/dL ALT 32 10 - 35 U/L HEMOGLOBIN A1C Result Value Ref Range Hemoglobin A1C 6.1 (H) 4.0 - 5.6 % Estimated Average Glucose 128 (H) <126 mg/dL TSH WITH FREE T4 IF INDICATED Result Value Ref Range TSH 1.26 0.27 - 4.20 uIU/mL *Note: Due to a large number of [...] goal LDL below 100 E78.5 COPD, severe ([facility]) J44.9 Severe obesity with body mass index (BMI) of 35.0 to 39.9 with serious comorbidity ([facility]) E66.01 Lumbar degenerative disc disease M51.36 Lumbar facet arthropathy M47.816 Urinary, incontinence, stress female N39.3 Rhinitis, nonallergic J31.0 Multiple thyroid nodules E04.2 Lumbar spinal stenosis M48.061 Primary osteoarthritis of right knee M17.11 HTN, goal below 140/90 I10 Moderate episode of recurrent major depressive disorder ([facility]) F33.1 Schatzki's ring K22.2 History of TIA (transient ischemic attack) Z86.73 Vertebral artery stenosis, asymptomatic, right I65.01 Insomnia G47.00 Peripheral vascular disease (HCC) I73.9 Thyroid nodule E04.1 Gastro-esophageal reflux disease without esophagitis K21.9 Prediabetes R73.03 Allergic rhinitis J30.9 Acute right ankle pain M25.571 Current Outpatient Medications Medication Sig Dispense Refill oxygen GAS Use 2 L/min(Oxygen) as directed continuous. 1 Each 0 VENTOLIN HFA 108 (90 Base) MCG/ACT inhaler INHALE 2 PUFFS BY MOUTH EVERY 4 HOURS NEEDED FOR WHEEZING. 1 Inhaler 5 umeclidinium-vilanterol (ANORO ELLIPTA) 62.5-25 MCG/INH AEPB Inhale 1 Puff by mouth daily. Dextromethorphan-guaiFENesin (CORICIDIN HBP CONGESTION/COUGH) 10-200 MG CAPS Take by mouth. Every 4-6 hours as needed for cough Cholecalciferol 1000 units Capsule Take 2,000 Units by mouth daily. albuterol-ipratropium (DUONEB) 2.5-0.5 MG/3ML nebulizer solution INHALE 3 MLS VIA NEBULIZER EVERY 4 HOURS NEEDED FOR COUGH, SHORTNESS OF BREATH OR WHEEZING. 360 mL 1 Meclizine HCl 25 MG Oral Tablet (Antivert) TAKE 1 TABLET BY MOUTH ONCE EVERY 6 HOURS NEEDED FOR DIZZINESS/VERTIGO 10 Tab 0 Naphazoline-Pheniramine 0.025-0.3 % Ophthalmic Solution (Naphcon-A) 1 Drop 3 times a day . Polyethylene Glycol 3350 17 GM/SCOOP Oral Powder (MiraLax) Take 17 g by mouth 2 times a day. Ondansetron 4 MG Oral Tablet Disintegrating Place 1 Tablet on tongue every 8 hours as needed for Nausea. 30 Tablet 0 Benzonatate 100 MG Oral Capsule (Tessalon Perles) Take 1 Capsule by mouth 3 times a day as needed for Cough. 30 Capsule 1 Budesonide 0.5 MG/2ML Inhalation Suspension (Pulmicort) INHALE ONE UNIT DOSE VIAL VIA NEBULIZERTWO TIMES A DAY. 120 mL 5 Amitriptyline HCl 25 MG Oral Tablet (Elavil) TAKE 1 TABLET BY MOUTH EVERYDAY AT BEDTIME 90 Tablet 1 Potassium Chloride ER 10 MEQ Oral Tablet [...] Oral Tablet (Ultram) 50 mg . Nystatin 270535 UNIT/GM External Powder (Nystop) APPLY TOPICALLY TO [...] BY MOUTH EVERY DAY 90 Tablet 2 Atenolol 25 MG Oral Tablet (Tenormin) TAKE 1 TABLET BY MOUTH EVERY DAY 90 Tablet 1 Losartan Potassium 50 MG Oral Tablet (Cozaar) Take by mouth 1 Tablet in the morning. 90 Tablet 1 Azithromycin 250 MG Oral Tablet (Zithromax) Take by mouth 250 mg in the morning. MWF only. Magnesium Oxide 500 MG Oral Tablet Take by mouth 500 mg in the morning AND 500 mg before bedtime. Bisacodyl 5 MG Oral Tablet Delayed Release (Dulcolax) Take 10 mg by mouth at bedtime. (Patient not taking: Reported on 06/22/2022 ) Zoster Vac Recomb Adjuvanted 50 MCG/0.5ML Intramuscular Suspension Reconstituted (Shingrix) Inject 0.5 mL into a large muscle now and repeat dose in 60 to 180 days 1 Each 0 DM-guaiFENesin ER 30-600 MG Oral Tablet Extended Release 12 Hour Take by mouth 1 Tablet in the morning AND 1 Tablet before bedtime. For 5 days. (Patient not taking: Reported on 06/22/2022 ) Cephalexin 500 MG Oral Capsule (Keflex) Take by mouth 500 mg in the morning AND 500 mg before bedtime. No current facility-administered medications for this visit. 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 BENIGN HYPERTENSION 01/28/2002 Bilateral carpal tunnel syndrome 07/20/2015 COPD (chronic obstructive pulmonary disease) ([facility]) COPD, severe ([facility]) 12/21/2015 COPD, severity to be determined ([facility]) 07/20/2015 Dyslipidemia, goal LDL below 100 10/16/2015 Dyslipidemia, goal LDL below 130 08/22/2015 FAM HX-CARDIOVAS DIS NEC 01/28/2002 Generalized osteoarthritis 08/22/2015 GERD (gastroesophageal reflux disease) 07/20/2015 Hypertrophy of breast 08/31/2003 IBS (irritable bowel syndrome) 07/20/2015 Kidney disease, chronic, stage III (GFR 30-59 ml/min) ([facility]) 10/16/2015 Kidney stone Lumbar degenerative disc disease 02/06/2016 Lumbar facet arthropathy ([facility]) 02/06/2016 Lumbar spinal stenosis 02/18/2017 Mixed incontinence [...] OR INJECTION MAJOR JOINT performed by Todd Rubalcavasins, DO at [facility] BIOPSY OF BREAST, OPEN 1971 benign, right, removed nipple for blocked milk glands BIOPSY OF BREAST, OPEN 1976 left, benign BREAST SURGERY PROCEDURE NEC bilateral Breast Reduction 09/20/03 BUNION CORRECTED WITH DOUBLE OSTEOTOMY 1991 right foot COLONOSCOPY, DIAGNOSTIC (RECTUM) 03/08/2015 adenomatous polyps, repeat 3 yrs/[facility] COLONOSCOPY, DIAGNOSTIC (RECTUM) 03/26/2018 adenomatous & serrated adenomatous polyps, repeat 3 yrs/[facility] EGD, FLEXIBLE, DIAGNOSTIC 01/21/2015 sm HH/[facility] EGD, FLEXIBLE, DIAGNOSTIC 07/22/2018 mild gastritis, Schatzki ring, duodenal polyp/[facility] ESOPHAGOSCOPY RIGID TRANSORAL HYPOPHARYNX ESOPHAGUS 2004 repair of Zenker's diverticulum [facility] DIGITAL BREAST TOMOSYNTHESIS; BILATERAL Bilateral 12/2019 category 2 benign, repeat 1 year LAPAROSCOPY; CHOLECYSTECTOMY 06/04/2016 laparoscopic cholecystectomy , [place] Dr. 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 Tobacco Use Smoking status: Former Smoker Packs/day: 1.75 Years: 38.00 Pack years: 66.50 Types: Cigarettes Quit date: 10/07/1995 Years since quittin.7 Smokeless tobacco: Never Used Tobacco comment: quit in 1995 Substance and Sexual Activity [...] Contact rash Motrin [Ibuprofen] Rash Objective: BP 154/78 | Pulse 81 | Temp 36.8 C (98.2 F) (Tympanic) | Resp 18 | Ht 1.549 m (5' 1") | Wt 90.4kg (199 lb 6.4 oz) | SpO2 91% | BMI 37.68 kg/m | BSA 1.97 m Physical Exam: General: alert, no distress, well nourished and well developed Head: Normocephalic, No masses, lesions, tenderness or abnormalities Eye Exam: PERRLA, extraocular movements intact, conjunctiva are pink and non- injected, sclera clear Ears: External ears normal, Canals clear, TM's Normal Nose: no mucosal erythema, no mucosal edema, no purulent discharge Oropharynx: no exudate, no erythema, lips, buccal mucosa, and tongue normal and mucous membranes are moist Neck: supple, no adenopathy, no bruits Heart: regular rate & rhythm, no murmurs and no gallops Lungs: chest symmetric with normal AP diameter, no chest deformities noted, no chest wall tenderness, lungs clear to auscultation Extremities: no clubbing, no cyanosis, trace ankle edema bilaterally. Right hand with arthritic deformities Neuro Exam: alert & oriented x 3 with fluent speech, no focal motor/sensory deficits. Extensive ROS Constitutional (f/c/wt/vision/hearing): Negative Resp (cough/sob/malagon): see above hpi CV (cp/palp/fluttering/diaphoresis/malagon/pnd):see above hpi GI (n/v/d/hrtburn): Negative Endo (hair/cold or heat intol/ 3 p's): Negative Neuro (shaking/weak/fatigu/parasthesi/): see above hpi Skin (rash/easy bruis/xerosis): Negative Psy (si/hi/halluc/): Negative (nocturia/hesit/drib/sexual review): Negative Lymph (swollen glands/b sx's/: Negative ASSESSMENT: COPD, severe (HCC) (Primary) - CBC WITH WBC DIFFERENTIAL; Future; Expected date: 06/22/2022 Hypomagnesemia - MAGNESIUM; Future; Expected date: 06/22/2022 HTN, goal below 140/90 - ALBUMIN / CREATININE RATIO, URINE; Future; Expected date: 06/22/2022 - COMPREHENSIVE METABOLIC PANEL; Future; Expected date: 06/22/2022 Nontoxic single thyroid nodule Gastro-esophageal reflux disease without esophagitis Occlusion and stenosis of right vertebral artery Prediabetes - HEMOGLOBIN A1C; Future; Expected date: 06/22/2022 Peripheral vascular disease (HCC) Severe obesity with body mass index (BMI) of 35.0 to 39.9 with serious comorbidity (HCC) Dyslipidemia, goal LDL below 100 - COMPREHENSIVE METABOLIC PANEL; Future; Expected date: 06/22/2022 - LIPID PANEL WITH DIRECT LDL IF TG IS HIGH; Future; Expected date: 06/22/2022 Follow Up: Return in about 6 months (around 12/20/2022) for Clinic Visit. | For: Clinic Visit PLAN: Continue present medication(s): Schedule labs: A1C, Magnesium, microalbumin, CMP, lipid panel through [facility] in July. Recommend completing antibiotics. 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 Right hand pain and weakness likely from arthritis in hand and had cramping while washing dishes. States her hand was very painful at the time. Is better now. Follow up: in 6 month(s). Yariel Cardoza MD documented in this encounter Nursing Notes * Karlene Nichole LPN - 06/22/2022 10:18 AM EDT 6 month recheck Was in [facility] on Saturday for UTI Given Keflex & Magnesium Has been taking meds for 2 days. Feeling a little better. documented in this encounter Plan of Treatment Upcoming Encounters Date Type Specialty Care Team Description 11/02/2022 Home Visit [facility] Corrina Layne, RN [address] [place] [phone] 04/16/2023 Office Visit Family Medicine Yariel Cardoza MD [address] [place] [address] [place] [phone] Scheduled Orders Name Type Priority Associated Diagnoses Orde r Schedule ALBUMIN / CREATININE RATIO, URINE Lab Routine HTN, goal below 140/90 Expected: 06/22/2022 (Approximate), Expires: 06/22/2023 COMPREHENSIVE METABOLIC PANEL Lab Routine HTN, goal below 140/90 Dyslipidemia, goal LDL below 100 Expected: 06/22/2022 (Approximate), Expires: 06/22/2023 MAGNESIUM Lab Routine Hypomagnesemia Expected: 06/22/2022 (Approximate), Expires: 06/22/2023 HEMOGLOBIN A1C Lab Routine Prediabetes Expected: 06/22/2022 (Approximate), Expires: 06/22/2023 LIPID PANEL WITH DIRECT LDL IF TG IS HIGH Lab Routine Dyslipidemia, goal LDL below 100 Expected: 06/22/2022, Expires: 06/22/2023 CBC WITH WBC DIFFERENTIAL Lab Routine COPD, severe (HCC) Expected: 06/22/2022 (Approximate), Expires: 06/22/2023 Scheduled Procedures Name Priority Associated Diagnoses Date/Ti [...] Primary Chronic airway obstruction, not elsewhere classified Hypomagnesemia Disorders of magnesium metabolism HTN, goal below 140/90 Unspecified essential hypertension Nontoxic single thyroid nodule Nontoxic uninodular goiter Gastro-esophageal reflux disease without esophagitis Esophageal reflux Occlusion and stenosis of right vertebral artery Occlusion and stenosis of vertebral artery without mention of cerebral infarction Prediabetes Other abnormal glucose Peripheral vascular disease (HCC) Peripheral vascular disease, unspecified Severe obesity with body mass index (BMI) of 35.0 to 39.9 with serious comorbidity (HCC) Dyslipidemia, goal LDL below 100 Other and unspecified hyperlipidemia documented in this encounter Care Teams [employer] Consultant Relationship Specialty Start Date End Date Yariel Cardoza MD [address] [place] [address] [place] [id number] PCP - General Family Medicine 12/01/18 documented as of this encounter
--- OUTSIDE RECORDS SUMMARY | 2023-06-07 07:37 | External Medical Summary | Summary of Care ---
Author Name Unknown Organization [facility] [place] [address] Care Team Providers Care Mental Health Advanced Practice Nurse Name Role Phone Yariel Cardoza MD Primary Care Provide r Reason for Visit * Reason Onset Date Comments Health Maintenance 09/19/2022 Encounter Details Date Type Department Care Team Description 09/19/[address] [address] Yariel Cardoza MD [address] [place] [address] [place] [id number] Health Maintenance Allergies Active Allergy Reactions Severity Noted Date Comments Adhesive Tape 06/29/2003 Sensitive to Naproxen Hives 05/28/2015 Ivp Dye Hives 08/20/2000 Latex Other (Please comment) 01/05/2015 Contact rash Ibuprofen Rash 01/05/2015 documented as of this encounter (statuses as of 09/19/2022) Medications Medication Sig Dispensed Refills Start Date [...] . For 5 days 0 Active Nystatin 482847 UNIT/GM External Powder (Nystop)Indications:C andidal skin infection [...] as of this encounter (statuses as of 09/19/2022) Active Problems Problem Noted Date Nontoxic single [...] as of this encounter (statuses as of 09/19/2022) Resolved Problems Problem Noted Date Resolved Date [...] as of this encounter (statuses as of 09/19/2022) Immunizations Name Administration Dates Next Due COVID-19 mRNA, LNP-s, No Pre serve, 2-Dose Series ([employer]) 09/13/2021,12/16/2020,11/25/2020 Covid-19, Mrna, Lnp-s, Pf, B ivalent Booster, 30 Mcg, IM, 12 yrs and above ([employer]) 08/14/2022 Pneumococcal Conjugate Vacc, 13 Valent (Prevnar) [...] encounter Miscellaneous Notes * Telephone Encounter - Deborah Wright KRISTIAN - 09/19/2022 4:26 PM EST Care Gaps Comprehensive Care Outreach Last Office/Telemedicine Visit: 08/10/2022 (in office), Visit date not found (telemedicine) Last Office/Telemedine Visit Annual Wellness: Next Office Visit: 04/16/2023 Hemoglobin AIC Results: Lab Results Component Value Date/Time HEMOGLOBIN A1C - [facility] 6.1 (H) 11/28/2021 09:08 AM HEMOGLOBIN A1C - [facility] 6.0 (H) 12/26/2020 08:53 AM HEMOGLOBIN A1C - [facility] 5.7 03/19/2017 08:05 AM Reviewed Health Maintenance below: Care needs Care needs Last completed Due next Health Maintenance Topic Date Due Hepatitis B (1 of 3 - 3-dose series) Never done Alb / Creat Ratio Never done Hepatitis C Screening Never done Zoster Vaccines (1 of 2) Never done *ADVANCE DIRECTIVE NOT ON FILE Never done Depression Screening, Annual for Pts 12 and Over 08/11/2020 DXA Scan 08/17/2022 Prediabetes-Yearly Hemoglobin A1c 11/28/2022 GFR - Renal Function 06/19/2023 Labs already ordered dexa declined Care Gap Outreach Action Taken: Spoke to patient documented in this encounter Plan of Treatment Upcoming Encounters Date Type Specialty Care Team Description 04/16/2023 Office Visit Family Medicine Yariel Cardoza MD [address] [place] [address] [place] [address] Scheduled Procedures Name Priority Associated Diagnoses Date/Ti me COLONOSCOPY FLEXIBLE PROXIMAL DIAGNOSTIC Recall History of colon polyps Health Maintenance Due Date Last Done Comments Hepatitis B (1 of 3 - 3-dose series) 1943 Alb / Creat Ratio 1961 Hepatitis C Screening 1961 Zoster Vaccines (1 of 2) 1993 *ADVANCE DIRECTIVE NOT ON FILE 12/23/2015 Depression Screening, Annual for Pts 12 and Over 08/11/2020 08/11/2019 DXA Scan 08/17/2022 08/17/2015 Prediabetes-Yearly Hemoglobin A1c 11/28/2022 11/28/2021, 12/26/2020, 03/19/2017 GFR - Renal Function 06/19/2023 06/19/2022, 11/28/2021, 06/06/2021, Additional history exists O2 ASSESSMENT COMPLETED IN PAST YEAR FOR COPD 08/10/2023 08/10/2022 COLONOSCOPY-EVERY 3 YRS AGES 18-100 08/28/2024 08/28/2021, 06/30/2021, 06/15/2021, Additional history exists DTaP,Tdap,and Td Vaccines (2 - Td or Tdap) 04/19/2028 04/19/2018, 05/03/2004, 05/03/2004 Pneumococcal Vaccine: 65+ Years Completed 03/28/2017, 09/21/2015 Influenza Vaccine (FLU shot) Completed 01/2022, 06/20/2021, 08/12/2020, Additional history exists COVID-19 Vaccine Completed 08/14/2022, 05/2021, 12/16/2020, Additional history exists GARDASIL-HPV IMMUNIZATION SERIES Aged Out No longer eligible based on patient's age to complete this topic MENINGOCOCCAL (MENACTRA/MENVEO) Aged Out No longer eligible based on patient's age to complete this topic documented as of this encounter Medical Devices Not on filedocumented as of this encounter Care Teams Mental Health Advanced Practice Nurse Relationship Specialty Start Date End Date Yariel Cardoza MD [address] [place] [address] [place] [address] PCP - General Family Medicine 12/01/18 documented as of this encounter
--- OUTSIDE RECORDS SUMMARY | 2023-06-07 07:37 | External Medical Summary | Summary of Care ---
Author Name Unknown Organization [place] [address] Care Team Providers Care High Scaler Name Role Phone Yariel Cardoza MD Primary Care Provide r Reason for Visit * Reason Onset Date Comments Advice 09/04/2022 Encounter Details Date Type Department Care Team Description 09/04/[address] [address] Yariel Cardoza MD [address] [place] [address] [place] [id number] Advice Allergies Active Allergy Reactions Severity Noted Date Comments Adhesive Tape 06/29/2003 Sensitive to Naproxen Hives 05/28/2015 Ivp Dye Hives 08/20/2000 Latex Other (Please comment) 01/05/2015 Contact rash Ibuprofen Rash 01/05/2015 documented as of this encounter (statuses as of 09/04/2022) Medications Medication Sig Dispensed Refills Start Date [...] . For 5 days 0 Active Nystatin 993323 UNIT/GM External Powder (Nystop)Indications:C andidal skin infection [...] as of this encounter (statuses as of 09/04/2022) Active Problems Problem Noted Date Nontoxic single [...] as of this encounter (statuses as of 09/04/2022) Resolved Problems Problem Noted Date Resolved Date [...] as of this encounter (statuses as of 09/04/2022) Immunizations Name Administration Dates Next Due COVID-19 mRNA, LNP-s, No Pre serve, 2-Dose Series ([employer]) 09/13/2021,12/16/2020,11/25/2020 Covid-19, Mrna, Lnp-s, Pf, B ivalent Booster, 30 Mcg, IM, 12 yrs and above ([facility]) 08/14/2022 Pneumococcal Conjugate Vacc, 13 Valent (Prevnar) [...] encounter Miscellaneous Notes * Telephone Encounter - Haven García LPN - 09/04/2022 1:48 PM EST Pt calling, . She doesn't need a refill on her losartan she has a whole bottle at home. She doesn't know why [facility] requested a refill. * Telephone Encounter - VIRA Palomo - 09/04/2022 1:44 PM EST Reason for patient's call: script question Caller was transferred to Haven at the nurse line. documented in this encounter Plan of Treatment Upcoming Encounters Date Type Specialty Care Team Description 04/16/2023 Office Visit Family Medicine Yariel Cardoza MD [address] [place] [address] [place] [address] Scheduled Procedures Name Priority [...] filedocumented as of this encounter Care Teams High Scaler Relationship Specialty Start Date End Date Yariel Cardoza MD [address] [place] [address] [place] [address] PCP - General Family Medicine 12/01/18 documented as of this encounter
--- OUTSIDE RECORDS SUMMARY | 2023-06-07 07:37 | External Medical Summary | Summary of Care ---
Author Name Unknown Organization [place] [address] Care Team Providers Care Deli Slicer Name Role Phone Yariel Cardoza MD Primary Care Provide r Reason for Visit * Reason Onset Date Comments [facility]: Maintenance 10/15/2022 Encounter Details Date Type Department Care Team Description 10/15/2022 Telephone [facility] [address] [place] [address] Corrina Layne RN [address] [facility] [place] [address] [facility]: Maintenance Allergies Active Allergy Reactions Severity Noted Date Comments Adhesive Tape 06/29/2003 Sensitive to Naproxen Hives 05/28/2015 Ivp Dye Hives 08/20/2000 Latex Other (Please comment) 01/05/2015 Contact rash Ibuprofen Rash 01/05/2015 documented as of this encounter (statuses as of 10/15/2022) Medications Medication Sig Dispensed Refills Start Date [...] . For 5 days 0 Active Nystatin 758005 UNIT/GM External Powder (Nystop)Indications:C andidal skin infection [...] as of this encounter (statuses as of 10/15/2022) Active Problems Problem Noted Date Nontoxic single [...] as of this encounter (statuses as of 10/15/2022) Resolved Problems Problem Noted Date Resolved Date [...] as of this encounter (statuses as of 10/15/2022) Immunizations Name Administration Dates Next Due COVID-19 mRNA, LNP-s, No Pre serve, 2-Dose Series ([employer]) 09/13/2021,12/16/2020,11/25/2020 Covid-19, Mrna, Lnp-s, Pf, B ivalent Booster, 30 Mcg, IM, 12 yrs and above ([employer]) 08/14/2022 Pneumococcal Conjugate Vacc, 13 Valent (Prevnar) [...] encounter Miscellaneous Notes * Telephone Encounter - Corrina Layne RN - 10/15/2022 12:09 PM EST Follow up call to patient. Pt reports that she has been doing well. No urgent or new concerns. Scheduled follow up visit for Nov 02. Pt to call sooner if having any concern/ red flag symptoms. Pt able to repeat back instructions correctly. documented in this encounter Plan of Treatment Upcoming Encounters Date Type Specialty Care Team Description 11/02/2022 Home Visit [facility] Corrina Layne RN [address] [facility] [place] [address] 04/16/2023 Office Visit Family Medicine Yariel Cardoza MD [address] [place] [address] [place] [address] Scheduled Procedures Name Priority Associated Diagnoses Date/Ti me COLONOSCOPY FLEXIBLE PROXIMAL DIAGNOSTIC Recall History of colon polyps Health Maintenance Due Date Last Done Comments Alb / Creat Ratio 1961 Hepatitis C [...] filedocumented as of this encounter Care Teams Deli Slicer Relationship Specialty Start Date End Date Yariel Cardoza MD [address] [place] [address] [place] [address] PCP - General Family Medicine 12/01/18 documented as of this encounter
--- OUTSIDE RECORDS SUMMARY | 2023-06-07 07:37 | External Medical Summary | Summary of Care ---
Author Name Unknown Organization [place] [address] Care Team Providers Care Metal Sprayer Name Role Phone Yariel Cardoza MD Primary Care Provide r Reason for Visit * Reason Onset Date Comments Med Request 10/22/2022 Pre Cert/Prior Auth 10/22/2022 Amitriptylin e HCl 25 MG Oral Tablet (Elavil) Status Check 10/22/2022 Encounter Details Date Type Department Care Team Description 10/22/[address] [address] Yariel Cardoza MD [address] [place] [address] [place] [address] Med Request; Pre Cert/Prior Auth (Amitript... Allergies Active Allergy Reactions Severity Noted Date Comments Adhesive Tape 06/29/2003 Sensitive to Naproxen Hives 05/28/2015 Ivp Dye Hives 08/20/2000 Latex Other (Please comment) 01/05/2015 Contact rash Ibuprofen Rash 01/05/2015 documented as of this encounter (statuses as of 10/24/2022) Medications Medication Sig Dispensed Refills Start Date [...] . For 5 days 0 Active Nystatin 910999 UNIT/GM External Powder (Nystop)Indications:C andidal skin infection [...] as of this encounter (statuses as of 10/24/2022) Active Problems Problem Noted Date Nontoxic single [...] as of this encounter (statuses as of 10/24/2022) Resolved Problems Problem Noted Date Resolved Date [...] as of this encounter (statuses as of 10/24/2022) Immunizations Name Administration Dates Next Due COVID-19 mRNA, LNP-s, No Pre serve, 2-Dose Series ([employer]) 09/13/2021,12/16/2020,11/25/2020 Covid-19, Mrna, Lnp-s, Pf, B ivalent Booster, 30 Mcg, IM, 12 yrs and above ([employer]) 08/14/2022 Pneumococcal Conjugate Vacc, 13 Valent (Prevnar) [...] encounter Miscellaneous Notes * Telephone Encounter - Enriqueta Jimenez CPhT - 10/24/2022 5:31 PM EST Patient only has 1 amitripttline left and patient stated her insurance company isn't going to pay for it. Insurance company told patient they called doctor 3 times and didn't get a response. Please call patient back at [phone]. Thank you, Enriqueta Jimenez CPhT Shipping And Receiving Clerk [facility] 10/24/2022,5:33 PM * Telephone Encounter - Deborah Fischer CPhT - 10/24/2022 9:18 AM EST p calling to check on status of PA. [facility] needs infor by 3pm today. Thank you, Deborah Fischer Shipping And Receiving Clerk [facility] 10/24/2022,9:18 AM * Telephone Encounter - MARIO Ashley - 10/23/2022 10:37 AM EST [facility] calling to check on status of PA Thank you, Mallory Castillo, Deputy Sheriff Generalist [facility] 10/23/2022,10:37 AM * Telephone Encounter - Nerissa [...] orthostatic hypotension.) To monitor utilization of TCAs, [facility] is requiring Prior Authorization of those drugs in this class that may have a significant side effect profile. Forwarding to provider to advise. Thank you, Nerissa Tate PharmD Clinical Pharmacist [facility] [phone] 10/23/2022, 10:18 AM * Telephone Encounter - MARIO Casas - 10/23/2022 9:21 AM EST EOC: [id number] This is a request for additional information. [...] orthostatic hypotension. To monitor utilization of TCAs, [facility] is requiring Prior Authorization of those drugs in this class that may have a significant side effect profile. Please advise. Thank you, Bhavna Graham CPhT Breaker Mechanic Lead [facility] 10/23/2022,9:21 AM * Telephone Encounter - LIMA Guajardo - 10/23/2022 8:33 AM EST [facility] is calling to ask for clinical documentation for review. Information would need to be faxed [phone]. They would need this before 12:00 on 10/24/22. Thank you, Claudia Elmore Deputy Sheriff Generalist [facility] 10/23/2022,8:34 AM * Telephone Encounter - MARIO Casas - 10/22/2022 10:00 AM EST Submitted information in previous note via [employer] (EOC: [id number]).. Awaiting payer response. We will follow-up with insurance starting 10/23. Per [facility] request, if no decision is received from insurance by 10/25, we will route back to the [facility] after clarifying with the pharmacy that the claim is still not processing. Thank you, Bhavna Graham CPhT Breaker Mechanic Lead [facility] 10/22/2022,10:00 AM * Telephone Encounter - [...] OV with provider 07/10/2019 Telephone encounter with [facility] Please copy and paste the following [...] upon this and route back to the [facility] pool if no decision is made by the insurance by 10/25/2022, afterclarifying with the pharmacy that the claim is still not processing. If PA is denied, please also route back to [facility] pool. Thank you, Nerissa Tate PharmD Clinical Pharmacist [facility] [phone] 10/22/2022, 9:45 AM * Telephone Encounter - MARIO Casas - 10/22/2022 9:02 AM EST Amitriptyline HCl 25 MG Oral Tablet (Elavil) This is a new PA request. Upon review of this prior authorization request, I verified this request is appropriate. This is prescribed by a department for which [facility] is authorized to review prior authorizations This [...] using discount card, not sure if "Contacted [facility] pharmacy and Amitriptyline is approved and can be picked up tomorrow 08/03/22" means discount card is approved for use or if PA was completed. Found no further PA information in chart. Of note, there is nothing currently pending in [employer] for this request. Please advise how to proceed. Thank you, Bhavna Graham CPhT Breaker Mechanic Lead [employer] 10/22/2022,9:02 AM * Telephone Encounter - Radha Andersen CPhT - 10/22/2022 8:37 AM EST Pt is out of medication, asking high priority. Pt calling to inform doctor that the patient's insurance will not pay for this medication without acompleted prior authorization. Did confirm this information with the pharmacy. Pt's current insurance information is as follows: Patient name: Jayla Hayes ID number: [id number] BIN number: [id number] PCN number: [id number] Group number: [id number] Subscriber name: Jayla Hayes Primary or Secondary Insurance:Primary Medication: Amitriptyline HCl 25 MG Oral Tablet (Elavil) Reason for Request: Prior Auth Pharmacy and phone number: [id number] [phone] Rx plan and phone number: [facility] [phone] What alternative medications does the pharmacy have in stock?: N/A Thank you, Radha Andersen Deputy Sheriff Generalist [employer] 10/22/2022,8:43 AM documented in this encounter Plan of Treatment Upcoming Encounters Date Type Specialty Care Team Description 11/02/2022 [facility] [place] [address] 04/16/2023 Office Visit Family Medicine Yariel Cardoza MD [address] [place] [address] [place] [phone] Scheduled Procedures Name Priority Associated Diagnoses Date/Ti [...] filedocumented as of this encounter Care Teams Metal Sprayer Relationship Specialty Start Date End Date Yariel Cardoza MD [address] [place] [address] [place] [address] PCP - General Family Medicine 12/01/18 documented as of this encounter
--- OUTSIDE RECORDS SUMMARY | 2023-06-07 07:37 | External Medical Summary | Summary of Care ---
Author Name Unknown Organization [place] [address] Care Team Providers Care Transportation Planning Engineer Name Role Phone Yariel Cardoza MD Primary Care Provide r Reason for Visit * Reason Comments eRx-Medication Refill Encounter Details Date Type Department Care Team Description 08/31/2022 Refill Family Medicine [address] [place] [address] Josie Ryan PA-C [address] [place] [address] [place] [address] HTN, goal below 140/90 Allergies Active Allergy Reactions Severity Noted Date Comments Adhesive Tape 06/29/2003 Sensitive to Naproxen Hives 05/28/2015 Ivp Dye Hives 08/20/2000 Latex Other (Please comment) 01/05/2015 Contact rash Ibuprofen Rash 01/05/2015 documented as of this encounter (statuses as of 2022) Medications Medication Sig Dispensed Refills Start Date [...] . For 5 days 0 Active Nystatin 316571 UNIT/GM External Powder (Nystop)Indications:C andidal skin infection [...] as of this encounter (statuses as of 2022) Active Problems Problem Noted Date Nontoxic single [...] as of this encounter (statuses as of 2022) Resolved Problems Problem Noted Date Resolved Date [...] as of this encounter (statuses as of 2022) Immunizations Name Administration Dates Next Due COVID-19 mRNA, LNP-s, No Pre serve, 2-Dose Series ([employer]) 09/13/2021,12/16/2020,11/25/2020 Covid-19, Mrna, Lnp-s, Pf, B ivalent Booster, 30 Mcg, IM, 12 yrs and above ([employer]) 08/14/2022 Pneumococcal Conjugate Vacc, 13 Valent (Prevnar) [...] encounter Miscellaneous Notes * Telephone Encounter - Vipul Apple RPh - 2022 1:48 PM ESTRefused Prescriptions: Disp Refills Losartan Potassium 25 MG Oral Tablet (Coza*90 Tab*3 Sig: TAKE 1TABLET BY MOUTH EVERY DAYRefused By: VIPUL APPLE for Refusal: Dose needs clarificationReason for Refusal Comment: 50mg documented in this encounter Plan of Treatment Upcoming Encounters Date Type Specialty Care Team Description 04/16/2023 Office Visit Family Medicine Yariel Cardoza MD [address] [place] [address] [place] [address] Scheduled Procedures Name Priority [...] hypertension documented in this encounter Care Teams Transportation Planning Engineer Relationship Specialty Start Date End Date Yariel Cardoza MD [address] [place] [address] [place] [address] PCP - General Family Medicine 12/01/18 documented as of this encounter
--- OUTSIDE RECORDS SUMMARY | 2023-06-07 07:37 | External Medical Summary | Summary of Care ---
Author Name Unknown Organization [place] [address] Care Team Providers Care Fur Finisher Seamstress Name Role Phone Yariel Cardoza MD Primary Care Provide r Reason for Visit * Reason Comments Re-Check Encounter Details Date Type Department Care Team Description 06/22/2022 Office Visit Family Medicine [address] [place] [address] Yariel Cardoza MD [address] [place] [address] [place] [id number] COPD, severe (HCC)*; Hypomagnesemia; HTN, goal below [...] . For 5 days 0 Active Nystatin 939341 UNIT/GM External Powder (Nystop)Indication s:Candidal skin infection [...] mRNA, LNP-s, No Pre serve, 2-Dose Series ([employer]) 09/13/2021,12/16/2020,11/25/2020 Covid-19, Mrna, Lnp-s, Pf, B ivalent [...] without adverse events since June of 2019. * Yariel Cardoza MD - 06/22/2022 10:31 [...] was in the ER. Is enrolled in [facility]. Follows with pulmonary at [facility], Dr. Mayer. Is on Zithromax MWF for [...] goal LDL below 100 E78.5 COPD, severe ([facility]) J44.9 Severe obesity with body mass index (BMI) of 35.0 to 39.9 with serious comorbidity ([facility]) E66.01 Lumbar degenerative disc disease M51.36 [...] Oral Tablet (Ultram) 50 mg . Nystatin 893769 UNIT/GM External Powder (Nystop) APPLY TOPICALLY TO [...] syndrome 07/20/2015 COPD (chronic obstructive pulmonary disease) ([facility]) COPD, severe ([facility]) 12/21/2015 COPD, severity to be determined ([facility]) 07/20/2015 Dyslipidemia, goal LDL below 100 10/16/2015 Dyslipidemia, goal LDL below 130 08/22/2015 [facility] HX-CARDIOVAS DIS NEC 01/28/2002 Generalized osteoarthritis 08/22/2015 GERD (gastroesophageal reflux disease) 07/20/2015 Hypertrophy of breast 08/31/2003 IBS (irritable bowel syndrome) 07/20/2015 Kidney disease, chronic, stage III (GFR 30-59 ml/min) ([facility]) 10/16/2015 Kidney stone Lumbar degenerative disc disease 02/06/2016 Lumbar facet arthropathy ([facility]) 02/06/2016 Lumbar spinal stenosis 02/18/2017 Mixed incontinence urge and stress (male)(female) 07/20/2015 Multiple thyroid nodules 09/09/2016 Obesity, Class II, BMI 35.0-39.9, with comorbidity (see actual BMI) 01/19/2016 Primary osteoarthritis of right knee 02/18/2017 Pulmonary hypertension ([facility]) 05/07/2017 Reflux esophagitis 01/28/2002 Slow transit constipation 07/20/2015 Thyroid nodule 09/05/2016 Tubular adenoma of colon 07/20/2015 Urge incontinence 05/03/2004 Urinary, incontinence, stress female 02/21/2016 Past Surgical History: Procedure Laterality Date ARTHROCENT ASP &/OR INJ MAJOR JX/BURSA W/O US 04/06/2019 ARTHROCENTESIS OR INJECTION MAJOR JOINT performed by Todd Johnson Cousins, DO at [facility] BIOPSY OF BREAST, OPEN 1971 benign, right, removed nipple for blocked milk glands BIOPSY OF BREAST, OPEN 1976 left, benign BREAST SURGERY PROCEDURE NEC bilateral Breast Reduction 09/20/03 BUNION CORRECTED WITH DOUBLE OSTEOTOMY 1991 right foot COLONOSCOPY, DIAGNOSTIC (RECTUM) 03/08/2015 adenomatous polyps, repeat 3 yrs/[facility] COLONOSCOPY, DIAGNOSTIC (RECTUM) 03/26/2018 adenomatous & serrated adenomatous polyps, repeat 3 yrs/[facility] EGD, FLEXIBLE, DIAGNOSTIC 01/21/2015 sm HH/[facility] EGD, FLEXIBLE, DIAGNOSTIC 07/22/2018 mild gastritis, Schatzki ring, duodenal polyp/[facility] ESOPHAGOSCOPY RIGID TRANSORAL HYPOPHARYNX ESOPHAGUS 2005 repair of Zenker's diverticulum DIGITAL BREAST TOMOSYNTHESIS; BILATERAL Bilateral 12/2019 category [...] A1C, Magnesium, microalbumin, CMP, lipid panel through [facility] in July. Recommend completing antibiotics. Recommend continuing magnesium terminal carman. Right hand pain and weakness likely from arthritis in hand and had cramping while washing dishes. States her hand was very painful at the time. Is better now. Follow up: in 6 month(s). Yariel Cardoza MD documented in this encounter Nursing Notes * Karlene Nichole LPN - 06/22/2022 10:18 AM EDT 6 month recheck Was in [facility] on Saturday for UTI Given Keflex & Magnesium Has been taking meds for 2 days. Feeling a little better. documented in this encounter Plan of Treatment Upcoming Encounters Date Type Specialty Care Team Description 11/02/2022 Home Visit [facility] Corrina Layne RN [address] [place] [address] 04/16/2023 Office Visit Family Medicine Yariel Cardoza MD [address] [place] [address] [place] [address] Scheduled Orders Name Type Priority Associated Diagnoses [...] hyperlipidemia documented in this encounter Care Teams Fur Finisher Seamstress Relationship Specialty Start Date End Date Yariel Cardoza MD [address] [place] [address] [place] [address] PCP - General Family Medicine 12/01/18 documented as of this encounter
--- OUTSIDE RECORDS SUMMARY | 2023-06-07 07:37 | External Medical Summary | Summary of Care ---
Author Name Unknown Organization [place] [address] Care Team Providers Care Water Quality Technician Name Role Phone Yariel Cardoza MD Primary Care Provide r Reason for Visit * Reason Onset Date Comments Med Request 10/22/2022 Pre Cert/Prior Auth 10/22/2022 Amitriptylin e HCl 25 MG Oral Tablet (Elavil) Status Check 10/22/2022 Encounter Details Date Type Department Care Team Description 10/22/[address] [address] Yariel Cardoza MD [address] [place] [address] [place] [address] Med Request; Pre Cert/Prior Auth (Amitript... [...] . For 5 days 0 Active Nystatin 942577 UNIT/GM External Powder (Nystop)Indications:C andidal skin infection [...] mRNA, LNP-s, No Pre serve, 2-Dose Series ([employer]) 09/13/2021,12/16/2020,11/25/2020 Covid-19, Mrna, Lnp-s, Pf, B ivalent Booster, 30 Mcg, IM, 12 yrs and above ([employer]) 08/14/2022 Pneumococcal Conjugate Vacc, 13 Valent (Prevnar) [...] a response. Please call patient back at [phone]. Thank you, Enriqueta Jimenez CPhT Skate Maker [facility] 10/24/2022,5:33 PM * Telephone Encounter - Deborah Fischer CPhT - 10/24/2022 9:18 AM EST p calling to check on status of PA. [facility] needs infor by 3pm today. Thank you, Deborah Fischer Skate Maker [facility] 10/24/2022,9:18 AM * Telephone Encounter - MARIO Ashley - 10/23/2022 10:37 AM EST [facility] calling to check on status of PA Thank you, Mallory Castillo, Skin Care Therapist [facility] 10/23/2022,10:37 AM * Telephone Encounter [...] orthostatic hypotension.) To monitor utilization of TCAs, [facility] is requiring Prior Authorization of those drugs in this class that may have a significant side effect profile. Forwarding to provider to advise. Thank you, Nerissa Tate PharmD Clinical Pharmacist [facility] [phone] 10/23/2022, 10:18 AM * Telephone Encounter - MARIO Casas - 10/23/2022 9:21 AM EST EOC: [id number] This is a request for additional information. [...] orthostatic hypotension. To monitor utilization of TCAs, [facility] is requiring Prior Authorization of those drugs in this class that may have a significant side effect profile. Please advise. Thank you, Bhavna Graham CPhT Grinder And Plater Lead [facility] 10/23/2022,9:21 AM * Telephone Encounter - LIMA Guajardo - 10/23/2022 8:33 AM EST [facility] is calling to ask for clinical documentation for review. Information would need to be faxed [phone]. They would need this before 12:00 on 10/24/22. Thank you, Claudia Elmore Skin Care Therapist [facility] 10/23/2022,8:34 AM * Telephone Encounter - MARIO Casas - 10/22/2022 10:00 AM EST Submitted information in previous note via [employer] (EOC: [id number]).. Awaiting payer response. We will follow-up with insurance starting 10/23. Per [facility] request, if no decision is received from insurance by 10/25, we will route back to the [facility] after clarifying with the pharmacy that the claim is still not processing. Thank you, Bhavna Graham CPhT Grinder And Plater Lead [facility] 10/22/2022,10:00 AM * Telephone Encounter - [...] OV with provider 07/10/2019 [facility] Please copy and paste the following information [...] route back to the [facility] pool if no decision is made by the insurance by 10/25/2022, afterclarifying with the pharmacy that the claim is still not processing. If PA is denied, please also route back to [facility] pool. Thank you, Nerissa Tate PharmD Clinical Pharmacist [facility] [phone] 10/22/2022, 9:45 AM * Telephone Encounter - MARIO Casas - 10/22/2022 9:02 AM EST Amitriptyline HCl 25 MG Oral Tablet (Elavil) This is a new PA request. Upon review of this prior authorization request, I verified this request is appropriate. This is prescribed by a department for which [facility] is authorized to review prior authorizations This [...] using discount card, not sure if "Contacted [facility] pharmacy and Amitriptyline is approved and can be picked up tomorrow 08/03/22" means discount card is approved for use or if PA was completed. Found no further PA information in chart. Of note, there is nothing currently pending in [facility] for this request. Please advise how to proceed. Thank you, Bhavna Graham CPhT Grinder And Plater Lead [employer] 10/22/2022,9:02 AM * Telephone Encounter - Radha Andersen CPhT - 10/22/2022 8:37 AM EST Pt is out of medication, asking high priority. Pt calling to inform doctor that the patient's insurance will not pay for this medication without acompleted prior authorization. Did confirm this information with the pharmacy. Pt's current insurance information is as follows: Patient name: Jayla Hayes ID number: [id number] BIN number: [id number] PCN number: [id number] Group number: [id number] Subscriber name: Jayla Hayes Primary or Secondary Insurance:Primary Medication: Amitriptyline HCl 25 MG Oral Tablet (Elavil) Reason for Request: Prior Auth Pharmacy and phone number: [id number] [phone] Rx plan and phone number: [facility] [phone] What alternative medications does the pharmacy have in stock?: N/A Thank you, Radha Andersen Skin Care Therapist [facility] 10/22/2022,8:43 AM documented in this encounter Plan of Treatment Upcoming Encounters Date Type Specialty Care Team Description 11/02/2022 [facility] [place] [address] 04/16/2023 Office Visit Family Medicine Yariel Cardoza MD [address] [place] [address] [place] [phone] Scheduled Procedures Name Priority Associated Diagnoses Date/Ti [...] filedocumented as of this encounter Care Teams Water Quality Technician Relationship Specialty Start Date End Date Yariel Cardoza MD [address] [place] [address] [place] [address] PCP - General Family Medicine 12/01/18 documented as of this encounter
--- OUTSIDE RECORDS SUMMARY | 2023-06-07 07:37 | External Medical Summary | Summary of Care ---
Author Name Unknown Organization [place] [address] Care Team Providers Care Paster Operator Name Role Phone Yariel Cardoza MD Primary Care Provide r Reason for Visit * Reason Onset Date Comments Med Request 10/22/2022 Pre Cert/Prior Auth 10/22/2022 Amitriptylin e HCl 25 MG Oral Tablet (Elavil) Encounter Details Date Type Department Care Team Description 10/22/2022 Telephone [facility] Medicine [address] [address] Yariel Cadroza MD [address] [place], [place] [address] [address] Med Request; Pre Cert/Prior Auth (Amitript... Allergies Active Allergy Reactions Severity Noted Date Comments Adhesive Tape 06/29/2003 Sensitive to Naproxen Hives 05/28/2015 Ivp Dye Hives 08/20/2000 Latex Other (Please comment) 01/05/2015 Contact rash Ibuprofen Rash 01/05/2015 documented as of this encounter (statuses as of 10/23/2022) Medications Medication Sig Dispensed Refills Start Date [...] . For 5 days 0 Active Nystatin 390817 UNIT/GM External Powder (Nystop)Indications:C andidal skin infection [...] as of this encounter (statuses as of 10/23/2022) Active Problems Problem Noted Date Nontoxic single [...] as of this encounter (statuses as of 10/23/2022) Resolved Problems Problem Noted Date Resolved Date [...] as of this encounter (statuses as of 10/23/2022) Immunizations Name Administration Dates Next Due COVID-19 mRNA, LNP-s, No Pre serve, 2-Dose Series ([employer]) 09/13/2021,12/16/2020,11/25/2020 Covid-19, Mrna, Lnp-s, Pf, B ivalent Booster, 30 Mcg, IM, 12 yrs and above ([employer]) 08/14/2022 Pneumococcal Conjugate Vacc, 13 Valent (Prevnar) [...] Miscellaneous Notes * Telephone Encounter - MARIO Ashley - 10/23/2022 10:37 AM EST [facility] calling to check on status of PA Thank you, Mallory Castillo, Motor Room Controller [employer] 10/23/2022,10:37 AM * Telephone Encounter - Nerissa Tate RP - 10/23/2022 10:16 AM EST Insurance requiring [...] orthostatic hypotension.) To monitor utilization of TCAs, [facility] is requiring Prior Authorization of those drugs in this class that may have a significant side effect profile. Forwarding to provider to advise. Thank you, Nerissa Tate PharmD Clinical Pharmacist [facility] [phone] 10/23/2022, 10:18 AM * Telephone Encounter - MARIO Casas - 10/23/2022 9:21 AM EST EOC: [id number] This is a request for additional information. [...] orthostatic hypotension. To monitor utilization of TCAs, [facility] is requiring Prior Authorization of those drugs in this class that may have a significant side effect profile. Please advise. Thank you, Bhavna Graham CPhT Student Teacher Lead [facility] 10/23/2022,9:21 AM * Telephone Encounter - LIMA Guajardo - 10/23/2022 8:33 AM EST [facility] is calling to ask for clinical documentation for review. Information would need to be faxed [phone]. They would need this before 12:00 on 10/24/22. Thank you, Claudia Elmore Motor Room Controller [facility] 10/23/2022,8:34 AM * Telephone Encounter - MARIO Casas - 10/22/2022 10:00 AM EST Submitted information in previous note via [employer] (EOC: [id number]).. Awaiting payer response. We will follow-up with insurance starting 10/23. Per [facility] request, if no decision is received from insurance by 10/25, we will route back to the [facility] after clarifying with the pharmacy that the claim is still not processing. Thank you, Bhavna Graham [facility] Student Teacher Lead [facility] 10/22/2022,10:00 AM * Telephone Encounter - Nerissa Tate [facility] - 10/22/2022 9:41 AM EST As [...] OV with provider 07/10/2019 Telephone encounter with [facility] Please copy and paste the [...] back to the [facility] pool if no decision is made by the insurance by 10/25/2022, afterclarifying with the pharmacy that the claim is still not processing. If PA is denied, please also route back to [facility]. Thank you, Nerissa Tate PharmD Clinical Pharmacist [facility] [phone] 10/22/2022, 9:45 AM * Telephone Encounter - [...] needs prior authorization This PA is for [employer] but a PA was completed through [facility] back in April and was approved. From TE 07/28/2022, pharmacy asked if it was OK to fill using discount card, not sure if "Contacted [facility] pharmacy and Amitriptyline is approved and can be picked up tomorrow 08/03/22" means discount card is approved for use or if PA was completed. Found no further PA information in chart. Of note, there is nothing currently pending in [facility] for this request. Please advise how to proceed. Thank you, Bhavna Graham CPhT Student Teacher Lead [facility] 10/22/2022,9:02 AM * Telephone [...] follows: Patient name: Jayla Hayes ID number: [id number] BIN number: [id number] PCN number: [id number] Group number: [id number] Subscriber name: Jayla Hayes Primary or Secondary Insurance:Primary Medication: Amitriptyline HCl 25 MG Oral Tablet (Elavil) Reason for Request: Prior Auth Pharmacy and phone number: [id number] [id number] [facility] [phone] Rx plan and phone number: [employer] [phone] What alternative medications does the pharmacy have in stock?: N/A Thank you, Radha Andersen Motor Room Controller [facility] 10/22/2022,8:43 AM documented in this encounter Plan of Treatment Upcoming Encounters Date Type Specialty Care Team Description 11/02/2022 Home Visit [facility] Corrina Layne RN [address] [place] [address] [place] [address] 04/16/2023 Office Visit Family Medicine Yariel Cardoza MD [address] [place] [address] [place] [address] Scheduled Procedures Name Priority Associated Diagnoses Date/Ti [...] filedocumented as of this encounter Care Teams Paster Operator Relationship Specialty Start Date End Date Yariel Cardoza MD [address] [place] [address] [place] [address] PCP - General Family Medicine 12/01/18 documented as of this encounter
--- OUTSIDE RECORDS SUMMARY | 2023-06-07 07:37 | External Medical Summary | Summary of Care ---
Author Name Unknown Organization [place] [address] Care Team Providers Care Rn Concurrent Review Name Role Phone Yariel Cardoza MD Primary Care Provide r Reason for Visit * Reason Onset Date Comments Med Request 10/22/2022 Pre Cert/Prior Auth 10/22/2022 Amitriptylin e HCl 25 MG Oral Tablet (Elavil) Status Check 10/22/2022 Encounter Details Date Type Department Care Team Description 10/22/[address] [address] Yariel Cardoza MD [address] [place] [address] [place] [address] Med Request; Pre Cert/Prior Auth (Amitript... [...] . For 5 days 0 Active Nystatin 867853 UNIT/GM External Powder (Nystop)Indications:C andidal skin infection [...] mRNA, LNP-s, No Pre serve, 2-Dose Series ([employer]) 09/13/2021,12/16/2020,11/25/2020 Covid-19, Mrna, Lnp-s, Pf, B ivalent Booster, 30 Mcg, IM, 12 yrs and above ([employer]) 08/14/2022 Pneumococcal Conjugate Vacc, 13 Valent (Prevnar) [...] Miscellaneous Notes * Telephone Encounter - VIRA Sommers - [...] a response. Please call patient back at [phone]. Thank you, Enriqueta Jimenez CPhT Supervisor Metal Placing [facility] 10/24/2022,5:33 PM * Telephone Encounter - Deborah Fischer CPhT - 10/24/2022 9:18 AM EST [facility] calling to check on status of PA. [facility] needs infor by 3pm today. Thank you, Deborah Fischer Supervisor Metal Placing [employer] [facility] 10/24/2022,9:18 AM * Telephone Encounter - MARIO Ashley - 10/23/2022 10:37 AM EST [facility] calling to check on status of PA Thank you, Mallory Castillo, Cigar Patcher [employer] 10/23/2022,10:37 AM * Telephone Encounter - Nerissa [...] orthostatic hypotension.) To monitor utilization of TCAs, [facility] is requiring Prior Authorization of those drugs in this class that may have a significant side effect profile. Forwarding to provider to advise. Thank you, Nerissa Tate PharmD Clinical Pharmacist [facility] [phone] 10/23/2022, 10:18 AM * Telephone Encounter - MARIO Casas - 10/23/2022 9:21 AM EST EOC: [id number] This is a request for additional information. [...] orthostatic hypotension. To monitor utilization of TCAs, [facility] is requiring Prior Authorization of those drugs in this class that may have a significant side effect profile. Please advise. Thank you, Bhavna Graham CPhT Supervisor Long Goods Lead [facility] 10/23/2022,9:21 AM * Telephone Encounter - LIMA Guajardo - 10/23/2022 8:33 AM EST [facility] is calling to ask for clinical documentation for review. Information would need to be faxed [phone]. They would need this before 12:00 on 10/24/22. Thank you, Claudia Elmore Cigar Patcher [facility] 10/23/2022,8:34 AM * Telephone Encounter - MARIO Casas - 10/22/2022 10:00 AM EST Submitted information in previous note via [employer] (EOC: [id number]).. Awaiting payer response. We will follow-up with insurance starting 10/23. Per [facility] request, if no decision is received from insurance by 10/25, we will route back to the [facility] after clarifying with the pharmacy that the claim is still not processing. Thank you, Bhavna Graham micro photographer Supervisor Long Goods Lead [facility] 10/22/2022,10:00 AM * Telephone [...] OV with provider 07/10/2019 Telephone encounter with [facility] Please copy and paste the [...] the [facility] pool if no decision is made by the insurance by 10/25/2022, afterclarifying with the pharmacy that the claim is still not processing. If PA is denied, please also route back to [facility]. Thank you, Nerissa Tate PharmD Clinical Pharmacist [facility] [phone] 10/22/2022, 9:45 AM * Telephone Encounter - [...] needs prior authorization This PA is for [employer] but a PA was completed through [employer] back in April and was approved. From TE 07/28/2022, pharmacy asked if it was OK to fill using discount card, not sure if "Contacted [facility] pharmacy and Amitriptyline is approved and can be picked up tomorrow 08/03/22" means discount card is approved for use or if PA was completed. Found no further PA information in chart. Of note, there is nothing currently pending in [facility] for this request. Please advise how to proceed. Thank you, Bhavna Graham CPhT Supervisor Long Goods Lead [facility] 10/22/2022,9:02 AM * Telephone [...] follows: Patient name: Jayla Hayes ID number: [id number] BIN number: [id number] N [id number] Group number: [id number] Subscriber name: Jayla Hayes Primary or Secondary Insurance:Primary Medication: Amitriptyline HCl 25 MG Oral Tablet (Elavil) Reason for Request: Prior Auth Pharmacy and phone number: [id number] [id number] [facility] [phone] Rx plan and phone number: [facility] [phone] What alternative medications does the pharmacy have in stock?: N/A Thank you, Radha Andersen Cigar Patcher [facility] 10/22/2022,8:43 AM documented in this encounter Plan of Treatment Upcoming Encounters Date Type Specialty Care Team Description 11/02/2022 [facility] Visit [facility] Corrina Layne RN [address] [place] [address] [place] [address] 04/16/2023 Office Visit Family Medicine Yariel Cardoza MD [address] [place] [address] [place] [address] Scheduled Procedures Name Priority Associated Diagnoses Date/Ti [...] filedocumented as of this encounter Care Teams Rn Concurrent Review Relationship Specialty Start Date End Date Yariel Cardoza MD [address] [place] [address] [place] [address] PCP - General Family Medicine 12/01/18 documented as of this encounter
--- OUTSIDE RECORDS SUMMARY | 2023-06-07 07:37 | External Medical Summary | Summary of Care ---
Author Name Unknown Organization [place] [address] Care Team Providers Care Recoverer Name Role Phone Yariel Cardoza MD Primary Care Provide r Reason for Visit * Reason Onset Date Comments Med Request 10/22/2022 Pre Cert/Prior Auth 10/22/2022 Amitriptylin e HCl 25 MG Oral Tablet (Elavil) Status Check 10/22/2022 Encounter Details Date Type Department Care Team Description 10/22/[address] [address] Yariel Cardoza MD [address] [place] [address] [place] [address] Med Request; Pre Cert/Prior Auth (Amitript... [...] . For 5 days 0 Active Nystatin 895100 UNIT/GM External Powder (Nystop)Indications:C andidal skin infection [...] mRNA, LNP-s, No Pre serve, 2-Dose Series (Sencha) 09/13/2021,12/16/2020,11/25/2020 Covid-19, Mrna, Lnp-s, Pf, B ivalent Booster, 30 Mcg, IM, 12 yrs and above (Sencha) 08/14/2022 Pneumococcal Conjugate Vacc, 13 Valent (Prevnar) [...] encounter Miscellaneous Notes * Telephone Encounter - Salma Alaniz LPN - 10/25/2022 11:52 AM EST Pt saw Dr. Cardoza on 06/22/22. We don't have any recent documentation of the amitriptyline. Pt doesn't have another appt until April. * Telephone Encounter - Enriqueta Jimenez CPhT - 10/24/2022 5:31 PM EST Patient only has 1 amitripttline left and patient stated her insurance company isn't going to pay for it. Insurance company told patient they called doctor 3 times and didn't get a response. Please call patient back at [phone]. Thank you, Enriqueta Jimenez CPhT Oil Lease Operator [facility] 10/24/2022,5:33 PM * Telephone Encounter - Deborah Fischer CPhT - 10/24/2022 9:18 AM EST p calling to check on status of PA. [facility] needs infor by 3pm today. Thank you, Deborah Fischer Oil Lease Operator II [facility] 10/24/2022,9:18 AM * Telephone Encounter - MARIO Ashley - 10/23/2022 10:37 AM EST [facility] calling to check on status of PA Thank you, Mallory Castillo, Business Leader [facility] 10/23/2022,10:37 AM * Telephone Encounter - Nerissa [...] orthostatic hypotension.) To monitor utilization of TCAs, [employer] [facility] is requiring Prior Authorization of those drugs in this class that may have a significant side effect profile. Forwarding to provider to advise. Thank you, Nerissa Tate PharmD Clinical Pharmacist [facility] [phone] 10/23/2022, 10:18 AM * Telephone Encounter - MARIO Casas - 10/23/2022 9:21 AM EST EOC: [id number] This is a request for additional information. [...] orthostatic hypotension. To monitor utilization of TCAs, [employer] [facility] is requiring Prior Authorization of those drugs in this class that may have a significant side effect profile. Please advise. Thank you, Bhavna Graham landscaping supervisor Coke Loader Lead [facility] 10/23/2022,9:21 AM * Telephone Encounter - LIMA Guajardo - 10/23/2022 8:33 AM EST [facility] is calling to ask for clinical documentation for review. Information would need to be faxed [phone]. They would need this before 12:00 on 10/24/22. Thank you, Claudia Elmore Business Leader [facility] 10/23/2022,8:34 AM * Telephone Encounter - MARIO Casas - 10/22/2022 10:00 AM EST Submitted information in previous note via PromptPA (EOC: [id number]).. Awaiting payer response. We will follow-up with insurance starting 10/23. Per [facility] request, if no decision is received from insurance by 10/25, we will route back to the [facility] after clarifying with the pharmacy that the claim is still not processing. Thank you, Bhavna Graham CPhT Coke Loader Lead [facility] 10/22/2022,10:00 AM * Telephone Encounter - Nerissa Tate [facility] - 10/22/2022 9:41 AM [...] OV with provider 07/10/2019 Telephone encounter with [facility] Please copy and paste the following information [...] upon this and route back to the [facility] pool if no decision is made by the insurance by 10/25/2022, afterclarifying with the pharmacy that the claim is still not processing. If PA is denied, please also route back to [facility] pool. Thank you, Nerissa Tate PharmD Clinical Pharmacist Telepharmacy [phone] 10/22/2022, 9:45 AM * Telephone Encounter - [...] needs prior authorization This PA is for [place] but a PA was completed through [employer] back in April and was approved. From TE 07/28/2022, pharmacy asked if it was OK to fill using discount card, not sure if "Contacted [facility] pharmacy and Amitriptyline is approved and can be picked up tomorrow 08/03/22" means discount card is approved for use or if PA was completed. Found no further PA information in chart. Of note, there is nothing currently pending in [facility] for this request. Please advise how to proceed. Thank you, Bhavna Graham CPhT Coke Loader Lead [facility] 10/22/2022,9:02 AM * Telephone [...] follows: Patient name: Jayla Hayes ID number: [id number] BIN number: [id number] PCN number: [id number] Group number: [id number] Subscriber name: Jayla Hayes Primary or Secondary Insurance:Primary Medication: Amitriptyline HCl 25 MG Oral Tablet (Elavil) Reason for Request: Prior Auth Pharmacy and phone [facility]: [id number] [phone] Rx plan and phone number: [facility] [place] [phone] What alternative medications does the pharmacy have in stock?: N/A Thank you, Radha Andersen Business Leader [facility] 10/22/2022,8:43 AM documented in this encounter Plan of Treatment Upcoming Encounters Date Type Specialty Care Team Description 11/02/2022 Home Visit [facility] [place] Corrina Layne RN 132 [facility] [place] [address] 04/16/2023 Office Visit Family Medicine Yariel Cardoza MD [address] [place] [address] [place] [address] Scheduled Procedures Name Priority [...] DXA Scan 08/17/2022 08/17/2015 HgA1C 11/28/2022 11/28/2021, 0311/2020, 03/19/2017 GFR - Renal Function 06/19/2023 06/19/2022, [...] filedocumented as of this encounter Care Teams Recoverer Relationship Specialty Start Date End Date Yariel Cardoza MD [address] [place] [address] [place] [id number] PCP - General Family Medicine 12/01/18 documented as of this encounter
--- OUTSIDE RECORDS SUMMARY | 2023-06-07 07:37 | External Medical Summary | Summary of Care ---
Author Name Unknown Organization [place] [address] Care Team Providers Care Putty Mixer And Applier Name Role Phone Yariel Cardoza MD Primary Care Provide r Reason for Visit * Reason Onset Date Comments Med Request 10/22/2022 Pre Cert/Prior Auth 10/22/2022 Amitriptylin e HCl 25 MG Oral Tablet (Elavil) Encounter Details Date Type Department Care Team Description 10/22/2022 Telephone [facility] Medicine [address] [address] Yariel Cardoza MD [address] [place], [place] [address] [address] Med Request; Pre Cert/Prior Auth (Amitript... [...] . For 5 days 0 Active Nystatin 828157 UNIT/GM External Powder (Nystop)Indications:C andidal skin infection [...] mRNA, LNP-s, No Pre serve, 2-Dose Series (J-Kan) 09/13/2021,12/16/2020,11/25/2020 Covid-19, Mrna, Lnp-s, Pf, B ivalent Booster, 30 Mcg, IM, 12 yrs and above (J-Kan) 08/14/2022 Pneumococcal Conjugate Vacc, 13 Valent (Prevnar) [...] Miscellaneous Notes * Telephone Encounter - Deborah Fischer CPhT - 10/24/2022 9:18 AM EST [facility] calling to check on status of PA. P needs infor by 3pm today. Thank you, Deborah Fischer Finish Patcher II [facility] 10/24/2022,9:18 AM * Telephone Encounter - MARIO Ashley Tech - 10/23/2022 10:37 AM EST [facility] calling to check on status of PA Thank you, Mallory Castillo, Rewinder [facility] 10/23/2022,10:37 AM * Telephone Encounter - Nerissa [...] orthostatic hypotension.) To monitor utilization of TCAs, [employer] [facility] is requiring Prior Authorization of those drugs in this class that may have a significant side effect profile. Forwarding to provider to advise. Thank you, Nerissa Tate PharmD Clinical Pharmacist [facility] [phone] 10/23/2022, 10:18 AM * Telephone Encounter - MARIO Casas - 10/23/2022 9:21 AM EST EOC: [id number] This is a request for additional information. [...] orthostatic hypotension. To monitor utilization of TCAs, [employer] [facility] is requiring Prior Authorization of those drugs in this class that may have a significant side effect profile. Please advise. Thank you, Bhavna Graham [facility] Contracting Engineer Lead [employer] [facility] 10/23/2022,9:21 AM * Telephone Encounter - LIMA Guajardo - 10/23/2022 8:33 AM EST [facility] is calling to ask for clinical documentation for review. Information would need to be faxed [phone]. They would need this before 12:00 on 10/24/22. Thank you, Claudia Elmore Rewinder [facility] 10/23/2022,8:34 AM * Telephone Encounter - MRAIO Casas - 10/22/2022 10:00 AM EST Submitted information in previous note via MyStarAutographPA (EOC: [id number]).. Awaiting payer response. We will follow-up with insurance starting 10/23. Per [facility] request, if no decision is received from insurance by 10/25, we will route back to the [facility] after clarifying with the pharmacy that the claim is still not processing. Thank you, Bhavna Graham [facility] Contracting Engineer Lead [employer] [facility] 10/22/2022,10:00 AM * Telephone Encounter - Nerissa Tate [facility] - 10/22/2022 9:41 AM EST [...] with provider 07/10/[address] [facility] Please copy and paste the following information [...] upon this and route back to the [facility] if no decision is made by the insurance by 10/25/2022, afterclarifying with the pharmacy that the claim is still not processing. If PA is denied, please also route back to [facility]. Thank you, Nerissa Tate PharmD Clinical Pharmacist Telepharmacy [phone] 10/22/2022, 9:45 AM * Telephone Encounter - [...] needs prior authorization This PA is for [employer] but a PA was completed through [employer] back in April and was approved. From TE 07/28/2022, pharmacy asked if it was OK to fill using discount card, not sure if "Contacted [facility] pharmacy and Amitriptyline is approved and can be picked up tomorrow 08/03/22" means discount card is approved for use or if PA was completed. Found no further PA information in chart. Of note, there is nothing currently pending in [facility] for this request. Please advise how to proceed. Thank you, Bhavna Graham CPhT Contracting Engineer Lead [email or web address] 10/22/2022,9:02 AM * Telephone Encounter - Radha Andersen CPhT - 10/22/2022 8:37 AM EST Pt is out of medication, asking high priority. Pt calling to inform doctor that the patient's insurance will not pay for this medication without acompleted prior authorization. Did confirm this information with the pharmacy. Pt's current insurance information is as follows: Patient name: Jayla Hayes ID number: [id number] BIN number: [id number] PCN number: [id number] Group number: [id number] Subscriber name: Jayla Hayes Primary or Secondary Insurance:Primary Medication: Amitriptyline HCl 25 MG Oral Tablet (Elavil) Reason for Request: Prior Auth Pharmacy and phone [facility]: [id number] [phone] Rx plan and phone number: [facility] [phone] What alternative medications does the pharmacy have in stock?: N/A Thank you, Radha Andersen Rewinder [employer] 10/22/2022,8:43 AM documented in this encounter Plan of Treatment Upcoming Encounters Date Type Specialty Care Team Description 11/02/2022 Home Visit [facility] [place] Corrina Layne RN 132 [facility] [place] [address] 04/16/2023 Office Visit Family Medicine Yariel Cardoza MD [address] [place] [address] [place] [address] Scheduled Procedures Name Priority Associated Diagnoses Date/Ti [...] filedocumented as of this encounter Care Teams Putty Mixer And Applier Relationship Specialty Start Date End Date Yariel Cardoza MD [address] [place] [address] [place] [address] PCP - General Family Medicine 12/01/18 documented as of this encounter
--- OUTSIDE RECORDS SUMMARY | 2023-06-07 07:37 | External Medical Summary | Summary of Care ---
Author Name Unknown Organization [place] [address] Care Team Providers Care Cross Tie Cutter Name Role Phone Yariel Cardoza MD Primary Care Provide r Reason for Visit * Reason Onset Date Comments Med Request 10/22/2022 Pre Cert/Prior Auth 10/22/2022 Amitriptylin e HCl 25 MG Oral Tablet (Elavil) Status Check 10/22/2022 Encounter Details Date Type Department Care Team Description 10/22/[address] [address] Yariel Cardoza MD [address] [place] [address] [place] [address] Med Request; Pre Cert/Prior Auth (Amitript... [...] . For 5 days 0 Active Nystatin 200322 UNIT/GM External Powder (Nystop)Indications:C andidal skin infection [...] mRNA, LNP-s, No Pre serve, 2-Dose Series (AriadNEXT) 09/13/2021,12/16/2020,11/25/2020 Covid-19, Mrna, Lnp-s, Pf, B ivalent Booster, 30 Mcg, IM, 12 yrs and above (AriadNEXT) 08/14/2022 Pneumococcal Conjugate Vacc, 13 Valent (Prevnar) [...] a response. Please call patient back at [phone]. Thank you, Enriqueta Jimenez CPhT Secondary History Teacher [facility] 10/24/2022,5:33 PM * Telephone Encounter - Deborah Fischer CPhT - 10/24/2022 9:18 AM EST p calling to check on status of PA. [facility] needs infor by 3pm today. Thank you, Deborah Fischer Secondary History Teacher II [facility] 10/24/2022,9:18 AM * Telephone Encounter - MARIO Ashley - 10/23/2022 10:37 AM EST p calling to check on status of PA Thank you, Mallory Castillo, Browning Processor [facility] 10/23/2022,10:37 AM * Telephone Encounter - [...] orthostatic hypotension.) To monitor utilization of TCAs, [facility] is requiring Prior Authorization of those drugs in this class that may have a significant side effect profile. Forwarding to provider to advise. Thank you, Nerissa Tate PharmD Clinical Pharmacist [facility] [phone] 10/23/2022, 10:18 AM * Telephone Encounter - MARIO Casas - 10/23/2022 9:21 AM EST EOC: [id number] This is a request for additional information. [...] orthostatic hypotension. To monitor utilization of TCAs, [employer] is requiring Prior Authorization of those drugs in this class that may have a significant side effect profile. Please advise. Thank you, Bhavna Graham CPhT Other Spatial Scientist Lead [facility] 10/23/2022,9:21 AM * Telephone Encounter - LIMA Guajardo - 10/23/2022 8:33 AM EST [facility] is calling to ask for clinical documentation for review. Information would need to be faxed [phone]. They would need this before 12:00 on 10/24/22. Thank you, Claudia Elmore Browning Processor [facility] 10/23/2022,8:34 AM * Telephone Encounter - MARIO Casas - 10/22/2022 10:00 AM EST Submitted information in previous note via PromptPA (EOC: [id number]).. Awaiting payer response. We will follow-up with insurance starting 10/23. Per [facility] request, if no decision is received from insurance by 10/25, we will route back to the [facility] after clarifying with the pharmacy that the claim is still not processing. Thank you, Bhavna Graham CPhT Other Spatial Scientist Lead [facility] 10/22/2022,10:00 AM * Telephone [...] OV with provider 07/10/2019 Telephone encounter with [facility] Please copy and paste the following information [...] back to [facility] pool. Thank you, Nerissa Tate PharmD Clinical Pharmacist Telepharmacy [phone] 10/22/2022, 9:45 AM * Telephone Encounter - [...] needs prior authorization This PA is for [employer] but a PA was completed through [employer] back in April and was approved. From TE 07/28/2022, pharmacy asked if it was OK to fill using discount card, not sure if "Contacted [facility] pharmacy and Amitriptyline is approved and can be picked up tomorrow 08/03/22" means discount card is approved for use or if PA was completed. Found no further PA information in chart. Of note, there is nothing currently pending in [employer] for this request. Please advise how to proceed. Thank you, Bhavna Graham CPhT Other Spatial Scientist Lead [facility] 10/22/2022,9:02 AM * Telephone [...] follows: Patient name: Jayla Hayes ID number: [id number] BIN number: [id number] PCN number: [id number] Group number: [id number] Subscriber name: Jayla Hayes Primary or Secondary Insurance:Primary Medication: Amitriptyline HCl 25 MG Oral Tablet (Elavil) Reason for Request: Prior Auth Pharmacy and phone number: [id number] [phone] Rx plan and phone number: [facility] [place] [phone] What alternative medications does the pharmacy have in stock?: N/A Thank you, Radha Andersen Browning Processor [employer] [facility] 10/22/2022,8:43 AM documented in this encounter Plan of Treatment Upcoming Encounters Date Type Specialty Care Team Description 11/02/2022 [facility] Visit [facility] Corrian Layne RN 132 [facility] [place] [address] 04/16/2023 Office Visit Family Medicine Yariel Cardoza MD [address] [place] [address] [place] [id number] Scheduled Procedures Name Priority Associated Diagnoses Date/Ti [...] filedocumented as of this encounter Care Teams Cross Tie Cutter Relationship Specialty Start Date End Date Yariel Cardoza MD [address] [place] [address] [place] [address] PCP - General Family Medicine 12/01/18 documented as of this encounter
--- OUTSIDE RECORDS SUMMARY | 2023-06-07 07:38 | External Medical Summary | Summary of Care ---
Author Name Unknown Organization [place] [address] Care Team Providers Care Life Trainer Name Role Phone Yariel Cardoza MD Primary Care Provide r Reason for Visit * Reason Onset Date Comments [facility]: Maintenance 08/18/2022 G @H check in TC Encounter Details Date Type Department Care Team Description 08/18/2022 Scheduled Telephone [facility] 132 [facility] [place] [address] [facility], Nurse [facility] 132 [facility] [place] [address] Allergies Active Allergy Reactions Severity Noted Date Comments Adhesive Tape 06/29/2003 Sensitive to Naproxen Hives 05/28/2015 Ivp Dye Hives 08/20/2000 Latex Other (Please comment) 01/05/2015 Contact rash Ibuprofen Rash 01/05/2015 documented as of this encounter (statuses as of 08/18/2022) Medications Medication Sig Dispensed Refills Start Date [...] . For 5 days 0 Active Nystatin 889776 UNIT/GM External Powder (Nystop)Indications:C andidal skin infection [...] as of this encounter (statuses as of 08/18/2022) Active Problems Problem Noted Date Nontoxic single [...] as of this encounter (statuses as of 08/18/2022) Resolved Problems Problem Noted Date Resolved Date [...] as of this encounter (statuses as of 08/18/2022) Immunizations Name Administration Dates Next Due COVID-19 mRNA, LNP-s, No Pre serve, 2-Dose Series (LiveTop) 09/13/2021,12/16/2020,11/25/2020 Covid-19, Mrna, Lnp-s, Pf, B ivalent Booster, 30 Mcg, IM, 12 yrs and above (LiveTop) 08/14/2022 Pneumococcal Conjugate Vacc, 13 Valent (Prevnar) [...] encounter Miscellaneous Notes * Telephone Encounter - Evelyne Tomas RN - 08/18/2022 9:00 AM EST TC to home- no answer, VM did not allow message to save. TC to "main" contact number, does not ring, notes no available VM. [facility] patient. documented in this encounter Plan of Treatment Upcoming Encounters Date Type Specialty Care Team Description 08/19/2022 Scheduled Telephone [facility] [place], Nurse Hernandez [address] [place] [address] 08/24/2022 [facility] Corrina Layne RN 132 [place] [address] 04/16/2023 Office Visit Family Medicine Yariel Cardoza MD [address] [place] [address] [place] [address] Scheduled Procedures Name Priority Associated Diagnoses Date/Ti [...] filedocumented as of this encounter Care Teams Life Trainer Relationship Specialty Start Date End Date Yariel Cardoza MD [address] [place] [address] [place] [address] PCP - General Family Medicine 12/01/18 documented as of this encounter
--- OUTSIDE RECORDS SUMMARY | 2023-06-07 07:38 | External Medical Summary | Summary of Care ---
Author Name Unknown Organization [place] [address] Care Team Providers Care Brush And Broom Clipper Name Role Phone Yariel Cardoza MD Primary Care Provide r Reason for Visit * Reason Onset Date Comments Follow Up 08/19/2022 Encounter Details Date Type Department Care Team Description 08/19/2022 Scheduled Telephone [facility] [place], [facility] 132 [facility] [place] [address] [facility], Nurse [facility] 132 [facility] [place] [address] Allergies Active Allergy Reactions Severity Noted Date Comments Adhesive Tape 06/29/2003 Sensitive to Naproxen Hives 05/28/2015 Ivp Dye Hives 08/20/2000 Latex Other (Please comment) 01/05/2015 Contact rash Ibuprofen Rash 01/05/2015 documented as of this encounter (statuses as of 08/19/2022) Medications Medication Sig Dispensed Refills Start Date [...] . For 5 days 0 Active Nystatin 703988 UNIT/GM External Powder (Nystop)Indications:C andidal skin infection [...] as of this encounter (statuses as of 08/19/2022) Active Problems Problem Noted Date Nontoxic single [...] as of this encounter (statuses as of 08/19/2022) Resolved Problems Problem Noted Date Resolved Date [...] as of this encounter (statuses as of 08/19/2022) Immunizations Name Administration Dates Next Due COVID-19 mRNA, LNP-s, No Pre serve, 2-Dose Series (Reduxio) 09/13/2021,12/16/2020,11/25/2020 Covid-19, Mrna, Lnp-s, Pf, B ivalent Booster, 30 Mcg, IM, 12 yrs and above (Reduxio) 08/14/2022 Pneumococcal Conjugate Vacc, 13 Valent (Prevnar) [...] encounter Miscellaneous Notes * Telephone Encounter - CHRIS Carrero - 08/19/2022 11:07 AM EST Phone call placed to patient to follow up regarding missed visit on Saturday. Patient having difficult time with her abdominal pain, This has been chronic. She states she has order at [facility] for an xray but she has to rely on her daughter to get there. Today she is not feeling any better or any worse. Encouraged her to call us prior to using ED. documented in this encounter Plan of Treatment Upcoming Encounters Date Type Specialty Care Team Description 08/24/2022 Home Visit [facility] Corrina Layne RN 132 [facility] [place] [address] 04/16/2023 Office Visit Family Medicine Yariel Cardoza MD [address] [place] [address] [place] [phone] Scheduled Procedures Name Priority Associated Diagnoses Date/Ti [...] filedocumented as of this encounter Care Teams Brush And Broom Clipper Relationship Specialty Start Date End Date Yariel Cardoza MD [address] [place] [address] [place] [address] PCP - General Family Medicine 12/01/18 documented as of this encounter
--- OUTSIDE RECORDS SUMMARY | 2023-06-07 07:38 | External Medical Summary | Summary of Care ---
Author Name Unknown Organization [place] [address] Care Team Providers Care Railroad Mechanic Name Role Phone Yariel Cardoza MD Primary Care Provide r Reason for Visit * Reason Onset Date Comments Medication Administration 08/10/2022 Flu an d/or Pneumo Inj Encounter Details Date Type Department Care Team Description 08/10/2022 Office Visit Family Medicine [address] [place] [phone] Josie Ryan PA-C [address] [place] [address] [place] [phone] Need for prophylactic vaccination and inoculation against influenza*; Bronchitis, complicated Allergies Active Allergy Reactions Severity Noted Date Comments Adhesive Tape 06/29/2003 Sensitive to Naproxen Hives 05/28/2015 Ivp Dye Hives 08/20/2000 Latex Other (Please comment) 01/05/2015 Contact rash Ibuprofen Rash 01/05/2015 documented as of this encounter (statuses as of 08/14/2022) Medications Medication Sig Dispensed Refills Start Date End Date Status oxygen GASIndications:Hypo bryan Use 2 L/min(Oxygen) as directed continuous. 1 Each 0 7 Active VENTOLIN HFA 108 (90 Base) MCG/ACT inhaler INHALE 2 PUFFS BY MOUTH EVERY 4 HOURS NEEDED FOR WHEEZING. 1 Inhaler 5 8 Active umeclidinium-vilant lashon (ANORO ELLIPTA) 62.5-25 MCG/INH AEPBIndications:EXPANDER D Inhale by mouth 1 Puff daily . 0 Active Dextromethorphan-gu aiFENesin (CORICIDIN HBP CONGESTION/COUGH) 10-200 [...] . For 5 days 0 Active Nystatin 671105 UNIT/GM External Powder (Nystop)Indications :Candidal skin infection [...] DAY FOR 10 DAYS 0 2 Active Cephalexin 500 MG Oral Capsule (Keflex) Take by mouth 500 mg 2 times a day . 0 2 08/10/20 22 Discontinued documented as of this encounter (statuses as of 08/14/2022) Active Problems Problem Noted Date Nontoxic single [...] as of this encounter (statuses as of 08/14/2022) Resolved Problems Problem Noted Date Resolved Date [...] as of this encounter (statuses as of 08/14/2022) Immunizations Name Administration Dates Next Due COVID-19 mRNA, LNP-s, No Pre serve, 2-Dose Series (Open-Plug) 09/13/2021,12/16/2020,11/25/2020 Pneumococcal Conjugate Vacc, 13 Valent (Prevnar) 09/21/2015 [...] Sign Reading Time Taken Comments Blood Pressure 120/76 08/10/2022 1:33 PM EDT Pulse 86 08/10/2022 1:33 PM EDT Temperature 37.2 C (99 F) 08/10/2022 1:33 PM EDT Respiratory Rate - - Oxygen Saturation 91% 08/10/2022 1:33 PM EDT Inhaled Oxygen Concentration - - Weight 89.7 kg (197 lb 12.8 oz) 08/10/2022 1:33 PM EDT Height - - Body Mass Index 37.37 06/22/2022 10:19 AM EDT documented in this encounter Progress Notes * Josie Ryan PA-C - 08/10/2022 1:50 PM EDT Nursing Notes: Lamont James, SKIVER BOX TOE 08/10/22 1339 Signed Chief Complaint Patient presents with Medication Administration Flu and/or Pneumo Inj [facility] ED Follow up from 08/04/22 Went to [facility] for right rib pain and Dx with start of Pneumonia tx with zpac and Cefdinir The patient has been properly identified by confirmation of name and date of . Pt here today for ER FU. Pt states that she went to ER on 08/04 with right sided rib tamia. Pt had labs, xray, EKG - all ok. The CT of her chest showed possible bronchitis. She was started on zpack and cefdinir. She finished the zpack.s till taking the cefdinir. Pt is doing well. The pain is gone. She has a slight cough. Pt denies chest pain, SOB, fever, chills, nasal/head congestion, swelling in l egs, headache, dizziness, sore throat, ear pain. Pt has no other issues at this time. Feeling good.Pulse ox is 91%. This is where she typically runs. She has PMH of severe COPD. Review of patient's allergies indicates: Allergen Reactions [...] Inhale by mouth 1 Puff daily . Dextromethorphan-guaiFENesin (CORICIDIN HBP CONGESTION/COUGH) 10-200 MG CAPS [...] MG Oral Tablet (Ultram) 50 mg . DM-guaiFENesin ER 30-600 MG Oral Tablet Extended Release 12 Hour Take by mouth 1 Tablet every 12 hours . For 5 days Nystatin 529375 UNIT/GM External Powder (Nystop) APPLY TOPICALLY TO [...] MOUTH TWICE A DAY FOR 10 DAYS No current facility-administered medications for this visit. 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 BENIGN HYPERTENSION 01/28/2002 Bilateral carpal tunnel syndrome 07/20/2015 COPD (chronic obstructive pulmonary disease) ([facility]) COPD, severe ([facility]) 12/21/2015 COPD, severity to be determined ([facility]) 07/20/2015 Dyslipidemia, goal LDL below 100 10/16/2015 Dyslipidemia, goal LDL below 130 08/22/2015 FAM HX-CARDIOVAS DIS NEC 01/28/2002 Generalized osteoarthritis 08/22/2015 GERD (gastroesophageal reflux disease) 07/20/2015 Hypertrophy of breast 08/31/2003 IBS (irritable bowel syndrome) 07/20/2015 Kidney disease, chronic, stage III (GFR 30-59 ml/min) ([facility]) 10/16/2015 Kidney stone Lumbar degenerative disc disease 02/06/2016 Lumbar facet arthropathy ([facility]) 02/06/2016 Lumbar spinal stenosis 02/18/2017 Mixed incontinence urge and stress (male)(female) 07/20/2015 Multiple thyroid nodules 09/09/2016 Obesity, Class II, BMI 35.0-39.9, with comorbidity (see actual BMI) 01/19/2016 Primary osteoarthritis of right knee 02/18/2017 Pulmonary hypertension ([facility]) 05/07/2017 Reflux esophagitis 01/28/2002 Slow transit constipation [...] Types: Cigarettes Quit date: 10/07/1995 Years since quittin.8 Smokeless tobacco: Never Used Tobacco comment: quit [...] Housing Stability: Not on file O:Blood pressure 120/76, pulse 86, temperature 37.2 C (99 F), temperature source Tympanic, weight 89.7 kg (197 lb 12.8 oz), SpO2 91 %. GENERAL: alert, healthy and no distress NECK: supple, no adenopathy EYES: PERRLA, conjunctiva are pink and non-injected, sclera clear [...] chest wall tenderness, lungs clear to auscultation A:Need for prophylactic vaccination and inoculation against influenza (Primary) - INFLUENZA VACC, QUAD, HIGH DOSE (FLUZONE HD) Bronchitis, complicated Bronchitis resolving. Finish cefdinir. Any questions/problems, please call. If anything changes, worsens, develops new sx, please call [facility]. Follow Up: Return if symptoms worsen or fail to improve. Josie Ryan PA-C * Lamont James LPN - 08/10/2022 1:31 PM EDT PRE - ADMINISTRATION DOCUMENTATION Are you experiencing any cold symptoms or fever? No Have you had Guillain-[place] Syndrome (an illness that causes paralysis) within the last 6 weeks? No Have you had the flu shot in the past? YES Have you ever had a reaction to the flu shot? No Lamont James LPN, 08/10/2022 1:31 PM Immunization Administration Documentation Time Out Procedure Performed: Yes Patient Identified (Ask Name/Date of ): Yes Does the patient have a fever greater than 101 degrees today? No Patient allergic to latex? No VFC Stock: No Immunization(s) verified: Yes, Immunization Name: Flu, VIS Sheet(s) given: Yes Verified Side and Site: Yes Verified Shot(s) with Parent(s)/Patient: Yes documented in this encounter Nursing Notes * Lamont James LPN - 08/10/2022 1:31 PM EDT Chief Complaint Patient presents with Medication Administration Flu and/or Pneumo Inj [facility] ED Follow up from 08/04/22 Went to [facility] for right rib pain and Dx with start of Pneumonia tx with zpac and Cefdinir The patient has been properly identified by confirmation of name and date of . documented in this encounter Plan of Treatment Upcoming Encounters Date Type Specialty Care Team Description 08/17/2022 [facility] Visit [facility] Corrina Layne RN [address] [place] [address] [place] [address] 04/16/2023 Office Visit Family Medicine Yariel Cardoza MD [address] [place] [address] [place] [phone] Scheduled Procedures Name Priority Associated Diagnoses Date/Ti [...] as of this encounter Visit Diagnoses Diagnosis Need for prophylactic vaccination and inoculation against influenza- Primary Bronchitis, complicated Bronchitis, not specified as acute or chronic documented in this encounter Care Teams Railroad Mechanic Relationship Specialty Start Date End Date Yariel Cardoza MD [address] [place] [address] [place] [address] PCP - General Family Medicine 12/01/18 documented as of this encounter
--- OUTSIDE RECORDS SUMMARY | 2023-06-07 07:38 | External Medical Summary | Summary of Care ---
Author Name Unknown Organization [place] [address] Care Team Providers Care Business Leader Name Role Phone Yariel Cardoza MD Primary Care Provide r Reason for Visit * Reason Onset Date Comments [facility]: Maintenance 08/17/2022 Encounter Details Date Type Department Care Team Description 08/17/2022 Telephone [facility], [facility] 132 [facility] [place] [address] Mackenzie Bishop RN 132 [facility] [place] [address] [facility]: Maintenance Allergies Active Allergy Reactions Severity Noted Date Comments Adhesive Tape 06/29/2003 Sensitive to Naproxen Hives 05/28/2015 Ivp Dye Hives 08/20/2000 Latex Other (Please comment) 01/05/2015 Contact rash Ibuprofen Rash 01/05/2015 documented as of this encounter (statuses as of 08/17/2022) Medications Medication Sig Dispensed Refills Start Date [...] . For 5 days 0 Active Nystatin 494249 UNIT/GM External Powder (Nystop)Indications:C andidal skin infection [...] as of this encounter (statuses as of 08/17/2022) Active Problems Problem Noted Date Nontoxic single [...] as of this encounter (statuses as of 08/17/2022) Resolved Problems Problem Noted Date Resolved Date [...] as of this encounter (statuses as of 08/17/2022) Immunizations Name Administration Dates Next Due COVID-19 mRNA, LNP-s, No Pre serve, 2-Dose Series (Silecs) 09/13/2021,12/16/2020,11/25/2020 Covid-19, Mrna, Lnp-s, Pf, B ivalent Booster, 30 Mcg, IM, 12 yrs and above (Silecs) 08/14/2022 Pneumococcal Conjugate Vacc, 13 Valent (Prevnar) [...] Miscellaneous Notes * Telephone Encounter - VIRA Jacobo - 08/17/2022 3:54 PM EST Outbound call to patient, she is agreeable to scheduled visit with Corrina Layne RN. Scheduled 08/24/22 at 10:30am VIRA Jacobo * Telephone Encounter - Mackenzie Bishop RN - 08/17/2022 8:55 AM EST Called pt to let her know what time nurse would be there for home visit. Pt stated she did not need a visit today, stated "it's not a good day". Asked pt if she felt ok and she stated "yes I'm fine" She would not elaborate any further. Will reschedule for home visit with RNCM next week and place for phone calls over the weekend to check in. documented in this encounter Plan of Treatment Upcoming Encounters Date Type Specialty Care Team Description 08/18/2022 Scheduled Telephone [facility] Nurse [address] [place] [address] 08/19/2022 Scheduled Telephone [facility], Nurse [address] [place] [address] 08/24/2022 Home Visit [facility] Corrina Layne RN [address] [place] [address] [place] [address] 04/16/2023 Office Visit Family Medicine Yariel Cardoza MD [address] [place] [address] [place] [phone] Scheduled Procedures Name Priority Associated Diagnoses Date/Ti [...] filedocumented as of this encounter Care Teams Business Leader Relationship Specialty Start Date End Date Yariel Cardoza MD [address] [place] [address] [place] [address] PCP - General Family Medicine 12/01/18 documented as of this encounter
--- OUTSIDE RECORDS SUMMARY | 2023-06-07 07:38 | External Medical Summary | Summary of Care ---
Author Name Unknown Organization [place] [address] Care Team Providers Care Jv Baseball Coach Name Role Phone Yariel Cardoza MD Primary Care Provide r Reason for Visit * Reason Onset Date Comments [facility]: Maintenance 08/17/2022 Encounter Details Date Type Department Care Team Description 08/17/2022 Telephone [facility], [facility] 132 [facility] [place] [address] Mackenzie Bishop RN 132 [facility] [place] [address] [facility]: Maintenance Allergies Active Allergy [...] . For 5 days 0 Active Nystatin 687041 UNIT/GM External Powder (Nystop)Indications:C andidal skin infection [...] mRNA, LNP-s, No Pre serve, 2-Dose Series (Particle) 09/13/2021,12/16/2020,11/25/2020 Covid-19, Mrna, Lnp-s, Pf, B ivalent Booster, 30 Mcg, IM, 12 yrs and above (Particle) 08/14/2022 Pneumococcal Conjugate Vacc, 13 Valent (Prevnar) [...] encounter Miscellaneous Notes * Telephone Encounter - Mackenzie Bishop RN [...] Team Description 08/18/2022 Scheduled Telephone [facility], Nurse [address] [place] [address] 08/19/2022 Scheduled Telephone [facility], Nurse David Farwell [address] [place] [address] 04/16/2023 Office Visit Family Medicine Yariel Cardoza MD [address] [place] [address] [place] [address] Scheduled Procedures Name Priority Associated Diagnoses Date/Ti [...] filedocumented as of this encounter Care Teams Jv Baseball Coach Relationship Specialty Start Date End Date Yariel Cardoza MD [address] [place] [address] [place] [address] PCP - General Family Medicine 12/01/18 documented as of this encounter
--- OUTSIDE RECORDS SUMMARY | 2023-06-07 07:38 | External Medical Summary | Summary of Care ---
Author Name Unknown Organization [place] [address] Care Team Providers Care Eligibility Counselor Name Role Phone Yariel Cardoza MD Primary Care Provide r Reason for Visit * Reason Onset Date Comments Information 08/21/2022 Encounter Details Date Type Department Care Team Description 08/21/2022 [facility]phone [facility] [place] [facility] [address] [facility], Scheduling [address] [place] [address] Information (///) Allergies Active Allergy Reactions Severity Noted Date Comments Adhesive Tape 06/29/2003 Sensitive to Naproxen Hives 05/28/2015 Ivp Dye Hives 08/20/2000 Latex Other (Please comment) 01/05/2015 Contact rash Ibuprofen Rash 01/05/2015 documented as of this encounter (statuses as of 08/21/2022) Medications Medication Sig Dispensed Refills Start Date [...] . For 5 days 0 Active Nystatin 346966 UNIT/GM External Powder (Nystop)Indications:C andidal skin infection [...] as of this encounter (statuses as of 08/21/2022) Active Problems Problem Noted Date Nontoxic single [...] as of this encounter (statuses as of 08/21/2022) Resolved Problems Problem Noted Date Resolved Date [...] as of this encounter (statuses as of 08/21/2022) Immunizations Name Administration Dates Next Due COVID-19 mRNA, LNP-s, No Pre serve, 2-Dose Series ([facility]) 09/13/2021,12/16/2020,11/25/2020 Covid-19, Mrna, Lnp-s, Pf, B ivalent Booster, 30 Mcg, IM, 12 yrs and above ([facility]) 08/14/2022 Pneumococcal Conjugate Vacc, 13 Valent (Prevnar) [...] Miscellaneous Notes * Telephone Encounter - VIRA Kaye - 08/21/2022 3:58 PM EST Incoming call from Magda( [facility] ), Mobile doesn't goes out to [facility]CH Team message Chanelle to make her aware. * Telephone Encounter - VIRA Ricci - 08/21/2022 3:36 PM EST Received in basket request to fax xray order to [facility], so I faxed at 330 and called to confirm documented in this encounter Plan of Treatment Upcoming Encounters Date Type Specialty Care Team Description 08/24/2022 [facility] Visit [facility] Corrina Layne, RN [address] [place] [address] 04/16/2023 Office Visit Family Medicine Yariel Cardoza MD [address] [place] [address] [place] [address] Scheduled Procedures Name Priority Associated Diagnoses Date/Ti [...] filedocumented as of this encounter Care Teams Eligibility Counselor Relationship Specialty Start Date End Date Yariel Cardoza MD [address] [place] [address] [place] [phone] PCP - General Family Medicine 12/01/18 documented as of this encounter
--- OUTSIDE RECORDS SUMMARY | 2023-06-07 07:38 | External Medical Summary | Summary of Care ---
Author Name Unknown Organization [place] [address] Care Team Providers Care Mat Machine Operator Name Role Phone Yariel Cardoza MD Primary Care Provide r Reason for Visit * Reason Onset Date Comments Information 08/21/2022 Encounter Details Date Type Department Care Team Description 08/21/2022 Telephone [facility] [place] [facility] [address] [facility], Scheduling [address] [place] [address] Information (///) Allergies Active Allergy Reactions Severity [...] . For 5 days 0 Active Nystatin 566944 UNIT/GM External Powder (Nystop)Indications:C andidal skin infection [...] mRNA, LNP-s, No Pre serve, 2-Dose Series (Codeanywhere) 09/13/2021,12/16/2020,11/25/2020 Covid-19, Mrna, Lnp-s, Pf, B ivalent Booster, 30 Mcg, IM, 12 yrs and above ([employer]where) 08/14/2022 Pneumococcal Conjugate Vacc, 13 Valent (Prevnar) [...] Miscellaneous Notes * Telephone Encounter - VIRA Ricci - 08/21/2022 3:36 PM EST Received in basket request to fax xray order to [facility], so I faxed at 330 and called to confirm documented in this encounter Plan of Treatment Upcoming Encounters Date Type Specialty Care Team Description 08/24/2022 Home Visit [facility] Corrina Layne RN 132 [facility] [place] [phone] 04/16/2023 Office Visit Family Medicine Yariel Cardoza MD [address] [place] [address] [place] [phone] Scheduled Procedures Name Priority Associated Diagnoses Date/Ti [...] filedocumented as of this encounter Care Teams Mat Machine Operator Relationship Specialty Start Date End Date Yariel Cardoza MD [address] [place] [address] [place] [address] PCP - General Family Medicine 12/01/18 documented as of this encounter
--- OUTSIDE RECORDS SUMMARY | 2023-06-07 07:38 | External Medical Summary | Summary of Care ---
Author Name Unknown Organization [place] [address] Care Team Providers Care Car Shagger Name Role Phone Yariel Cardoza MD Primary Care Provide r Reason for Visit * Reason Comments [facility]: Maintenance Encounter Details Date Type Department Care Team Description 08/24/2022 Home Visit [facility], [facility] [address] [place] [address] Corrina Layne RN 132 [facility] [place] [address] Allergies Active Allergy Reactions Severity Noted Date Comments Adhesive Tape 06/29/2003 Sensitive to Naproxen Hives 05/28/2015 Ivp Dye Hives 08/20/2000 Latex Other (Please comment) 01/05/2015 Contact rash Ibuprofen Rash 01/05/2015 documented as of this encounter (statuses as of 08/29/2022) Medications Medication Sig Dispensed Refills Start Date [...] . For 5 days 0 Active Nystatin 690462 UNIT/GM External Powder (Nystop)Indications:C andidal skin infection [...] as of this encounter (statuses as of 08/29/2022) Active Problems Problem Noted Date Nontoxic single [...] as of this encounter (statuses as of 08/29/2022) Resolved Problems Problem Noted Date Resolved Date [...] as of this encounter (statuses as of 08/29/2022) Immunizations Name Administration Dates Next Due COVID-19 mRNA, LNP-s, No Pre serve, 2-Dose Series ([facility]) 09/13/2021,12/16/2020,11/25/2020 Covid-19, Mrna, Lnp-s, Pf, B ivalent Booster, 30 Mcg, IM, 12 yrs and above ([facility]) 08/14/2022 Pneumococcal Conjugate Vacc, 13 Valent (Prevnar) [...] as of this encounter Progress Notes * Corrina Layne, SELENE - 08/29/2022 8:00 AM EST [facility] Paperhanger Assistant Monthly Visit Date: 08/24/2022 Time: 10:00 AM Name: Jayla Hayes : 1945 Situation: Pt being seen for ED follow up. Background: Patient went to ED 08/04/22 for right sided chest pain. Was found to have pneumonia. Ptdid not contact [facility] prior to going to ED. Assessment: Pt states that she developed sudden onset right sided chest pain. Thought it was maybe pleurisy that a family member had had in the past. Denies fever, chills or feeling ill days prior. Pt was prescribed antibiotic and discharged from ED to home. Breathing at baseline. Done with antibiotic. Using flutter valve and nebs as ordered Discussion with patient regarding frequent ED use for non life-threatening issues. Pt agreeable to call [facility] prior to going to ED if symptoms are not emergent / life threatening. No other complaints/concerns. Recommendation: Continue all medications as ordered/reviewed. Follow nebulizer treatments with flutter valve x 10 when available Orders placed for new flutter valve Oxygen at 2LPM with activity and at HS Azithromycin 250mg MWF Magnesium bid Problems/Symptoms: Review of Systems Constitutional: Negative for chills and fever. HENT: Negative. Eyes: Negative. Respiratory: Negative. Cardiovascular: Negative. Gastrointestinal: Negative. Endocrine: Negative. Genitourinary: Negative. Musculoskeletal: Negative. Skin: Negative. Allergic/Immunologic: Negative. Neurological: Negative. Hematological: Negative. Psychiatric/Behavioral: Negative. Physical Exam: Physical Exam HENT: Mouth/Throat: Mouth: Mucous membranes are moist. Pharynx: Oropharynx is clear. Cardiovascular: Rate and Rhythm: Normal rate and regular rhythm. Pulses: Normal pulses. Pulmonary: Effort: Pulmonary effort [...] Content: Thought content normal. Judgment: Judgment normal. [facility]-10 Completed this Visit: Yes. [facility]-10: Reason Completed: Status post ED visit/hospital admission [facility]-10 Interventions: Fall education provided, reviewed/provided Fall brochure Home Interventions Provided: Reinforced current Plan of Care, including self-management and medication regimen Medication Reconciliation: (See medication list) Does patient take medications as ordered: Yes Advanced Care Planning: Living Will. Referrals Needed: KAYLIE Layne RN 08/29/2022 8:10 AM documented in this encounter Plan of Treatment Upcoming Encounters Date Type Specialty Care Team Description 04/16/2023 Office Visit Family Medicine Yariel Cardoza MD [address] [place] [address] [place] [phone] Scheduled Procedures Name Priority Associated Diagnoses Date/Ti [...] filedocumented as of this encounter Care Teams Car Shagger Relationship Specialty Start Date End Date Yariel Cardoza MD [address] [place] [address] [place] [id number] PCP - General Family Medicine 12/01/18 documented as of this encounter
--- OUTSIDE RECORDS SUMMARY | 2023-06-07 07:38 | External Medical Summary | Summary of Care ---
Author Name Unknown Organization [place] [address] Care Team Providers Care Survey Superintendent Name Role Phone Yariel Cardoza MD Primary Care Provide r Encounter Details Date Type Department Care Team Description 08/14/2022 Immunization Ancillary [address] [place] [phone] [place], Covid19 Vaccine [address] [place] [phone] Arrived Allergies Active Allergy Reactions Severity Noted Date [...] . For 5 days 0 Active Nystatin 372040 UNIT/GM External Powder (Nystop)Indications:C andidal skin infection [...] mRNA, LNP-s, No Pre serve, 2-Dose Series ([facility]) 09/13/2021,12/16/2020,11/25/2020 Covid-19, Mrna, Lnp-s, Pf, B ivalent Booster, 30 Mcg, IM, 12 yrs and above ([facility]) 08/14/2022 Pneumococcal Conjugate Vacc, 13 Valent [...] 08/17/2022 Home Visit [facility] Corrina Layne, RN 132 [facility] [place] [address] 04/16/2023 Office Visit Family Medicine Yariel Cardoza MD [address] [place] [address] [place] [phone] Scheduled Procedures Name Priority Associated Diagnoses Date/Ti [...] for Pts 12 and Over 08/11/2020 08/11/2019 COVID-19 Vaccine (4 - Booster for Pfizer series) 11/08/2021 08/14/2022, 09/13/2021, 12/16/2020, Additional history exists DXA Scan 08/17/2022 08/17/2015 Prediabetes-Yearly Hemoglobin A1c [...] Completed 01/2022, 06/20/2021, 08/12/2020, Additional history exists GARDASIL-HPV IMMUNIZATION SERIES Aged Out No longer eligible based on patient's age to complete this topic MENINGOCOCCAL (MENACTRA/MENVEO) Aged Out No longer eligible based on patient's age to complete this topic documented as of this encounter Medical Devices Not on filedocumented as of this encounter Care Teams Survey Superintendent Relationship Specialty Start Date End Date Yariel Cardoza MD [address] [place] [address] [place] [address] PCP - General Family Medicine 12/01/18 documented as of this encounter
--- OUTSIDE RECORDS SUMMARY | 2023-06-07 07:38 | External Medical Summary | Summary of Care ---
Author Name Unknown Organization [place] [address] Care Team Providers Care Kiln Puller Name Role Phone Yariel Cardoza MD Primary Care Provide r Reason for Visit * Reason Onset Date Comments Follow Up 08/19/2022 Encounter Details Date Type Department Care Team Description 08/19/2022 Scheduled Telephone [facility], [facility] 132 [facility] [place] [address] [facility], Nurse [facility] 132 [facility] [place] [address] Abdominal pain, generalized* Allergies Active Allergy Reactions Severity Noted Date [...] . For 5 days 0 Active Nystatin 422482 UNIT/GM External Powder (Nystop)Indications:C andidal skin infection [...] mRNA, LNP-s, No Pre serve, 2-Dose Series ([facility]) 09/13/2021,12/16/2020,11/25/2020 Covid-19, Mrna, Lnp-s, Pf, B ivalent Booster, 30 Mcg, IM, 12 yrs and above ([facility]) 08/14/2022 Pneumococcal Conjugate Vacc, 13 Valent (Prevnar) [...] as of this encounter Miscellaneous Notes * Addendum Note - SAMIR Mckenzie - 08/19/2022 1:18 PM ESTAddended by: YENIFER MADDOX on: 08/19/2022 01:18 PM Modules accepted: Orders * Telephone Encounter - SAMIR Mckenzie - 08/19/2022 1:17 PM EST Abd xray order placed, [facility] scheduling--please fax order for mobile. She is followed by [facility]--she should continue to follow up with them with her ongoing issues. * Telephone Encounter - CHRIS Carrero - 08/19/2022 11:07 AM EST Phone call placed to patient to follow up regarding missed visit on Saturday. Patient having difficult time with her abdominal pain, This has been chronic. She states she has order at [facility] for an xray but she has [...] RN 132 [facility] [place] [address] 04/16/2023 Office Visit Family Medicine Yariel Cardoza MD [address] [place] [address] [place] [phone] Scheduled Orders Name Type Priority Associated Diagnoses Orde r Schedule XR ABDOMEN OBSTRUCT SERIES W CHEST 1 VIEW Medical Imaging Routine Abdominal pain, generalized Ordered: 08/19/2022 Scheduled Procedures Name Priority Associated Diagnoses Date/Ti [...] as of this encounter Visit Diagnoses Diagnosis Abdominal pain, generalized- Primary documented in this encounter Care Teams Kiln Puller Relationship Specialty Start Date End Date Yariel Cardoza MD [address] [place] [address] [place] [phone] PCP - General Family Medicine 12/01/18 documented as of this encounter
--- OUTSIDE RECORDS SUMMARY | 2023-06-07 07:39 | External Medical Summary | Summary of Care ---
Author Name Unknown Organization [place] [address] Care Team Providers Care Special Crimes Investigator Name Role Phone Leanne Cardoza MD Primary Care Provide r Reason for Visit * Reason Comments eRx-Medication Refill Encounter Details Date Type Department Care Team Description 07/28/2022 Refill Family [address] [phone] Leanne Cardoza MD [address] [place] [address] [place] [phone] Allergies Active Allergy Reactions Severity Noted Date Comments Adhesive Tape 06/29/2003 Sensitive to Naproxen Hives 05/28/2015 Ivp Dye Hives 08/20/2000 Latex Other (Please comment) 01/05/2015 Contact rash Ibuprofen Rash 01/05/2015 documented as of this encounter (statuses as of 07/28/2022) Medications Medication Sig Dispensed Refills Start Date End Date Status oxygen GASIndications:Hypo bryan Use 2 L/min(Oxygen) as directed continuous. 1 Each 0 7 Active VENTOLIN HFA 108 (90 Base) MCG/ACT inhaler INHALE 2 PUFFS BY MOUTH EVERY 4 HOURS NEEDED FOR WHEEZING. 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 For 5 days 0 Active Nystatin 150953 UNIT/GM External Powder (Nystop)Indications :Candidal skin infection [...] daily . MWF only 0 2 Active Cephalexin 500 MG Oral Capsule (Keflex) Take by mouth 500 mg 2 times a day . 0 2 Active Ondansetron 4 MG Oral [...] AT BEDTIME 90 Tablet 3 2 Active Amitriptyline HCl 25 MG Oral Tablet (Elavil) TAKE 1 TABLET BY MOUTH EVERYDAY AT BEDTIME 90 Tablet 1 2 07/28/20 22 Discontinued documented as of this encounter (statuses as of 07/28/2022) Active Problems Problem Noted Date Nontoxic single [...] as of this encounter (statuses as of 07/28/2022) Resolved Problems Problem Noted Date Resolved Date [...] as of this encounter (statuses as of 07/28/2022) Immunizations Name Administration Dates Next Due COVID-19 mRNA, LNP-s, No Pre serve, 2-Dose Series ([facility]) 09/13/2021,12/16/2020,11/25/2020 Pneumococcal Conjugate Vacc, 13 Valent (Prevnar) 09/21/2015 Pneumococcal Polysaccharide PPV23 (Pneumovax) 03/28/2017 Seasonal Influenza, Quadriva lent Hd (Fluzone Hd) 06/20/2021 Seasonal Influenza, Quadriva lent, No Preserve, 6 [...] Tobacco Use Types Packs/Day Years Used Date Former Smoker Cigarettes 1.75 38 Quit: 10/07 Smokeless Tobacco: Never Used Comments:quit in 1995 Alcohol Use Standard Drinks/Week [...] Telephone Encounter - Vipul Apple RPh - 07/28/2022 2:27 PM EDT Signed Prescriptions: Disp Refills Amitriptyline HCl 25 MG Oral Tablet (Elavi*90 Tab*3 Sig: TAKE 1 TABLET BY MOUTH EVERYDAY AT BEDTIMEAuthorizing Provider: LEANNE CARDOZA User: VIPUL APPLE documented in this encounter Plan of Treatment Upcoming Encounters Date Type Specialty Care Team Description 08/17/2022 Home Visit [facility] Corrina Layne RN [address] [place] [address] [address] 04/16/2023 Office Visit Family Medicine Leanne Cardoza MD [address] [place] [address] [place] [phone] Scheduled Procedures Name Priority Associated Diagnoses Date/Ti [...] (4 - Booster for Pfizer series) 11/08/2021 09/13/2021, 12/16/2020, 11/25/2020 Influenza Vaccine (FLU shot) (#1) 2022 06/20/2021, 08/12/2020, 08/12/2020, Additional history exists DXA Scan 08/17/2022 08/17/2015 Prediabetes-Yearly Hemoglobin A1c 11/28/2022 11/28/2021, 11/28/2021, 12/26/2020, Additional history exists GFR - Renal Function 06/19/2023 06/19/2022, 11/28/2021, 06/06/2021, Additional history exists O2 ASSESSMENT COMPLETED IN PAST YEAR FOR COPD 06/22/2023 06/22/2022 COLONOSCOPY-EVERY 3 YRS AGES 18-100 08/28/2024 08/28/2021, 06/30/2021, 06/15/2021, Additional history exists DTaP,Tdap,and Td Vaccines (2 - Td or Tdap) 04/19/2028 04/19/2018, 05/03/2004, 05/03/2004 Pneumococcal Vaccine: 65+ Years Completed 03/28/2017, 09/21/2015 GARDASIL-HPV IMMUNIZATION SERIES Aged Out No longer eligible based on patient's age to complete this topic Hepatitis B Aged Out No longer eligi ble based on patient's age to complete this topic MENINGOCOCCAL (MENACTRA/MENVEO) Aged Out No longer eligible based on patient's age to complete this topic documented as of this encounter Implants Not on filedocumented as of this encounter Advance Directives Documents on File Type Date Recorded Patient Rhinologist Expl 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 Advanced Directive Advanced Directive Advanced Directive Advanced Directive Advanced Directive Advanced Directive Advanced Directive Advanced Directive Advanced Directive Advanced Directive Advanced Directive Advanced Directive Advanced Directive Advanced Directive Advanced Directive Advanced Directive Advanced Directive Advanced Directive Advanced Directive Advanced Directive Advanced Directive Advanced Directive Advanced Directive Advanced Directive Advanced Directive Advanced Directive Advanced Directive Advanced Directive Advanced Directive Advanced Directive Advanced Directive Advanced Directive Advanced Directive Advanced Directive Advanced Directive Advanced Directive Advanced Directive Advanced Directive Advanced Directive Advanced Directive Advanced Directive Advanced Directive Advanced Directive Advanced Directive Advanced Directive Advanced Directive Advanced Directive Advanced Directive Advanced Directive Advanced Directive Advanced Directive Advanced Directive Advanced Directive Advanced Directive Advanced Directive Advanced Directive Advanced Directive Advanced Directive Advanced Directive Advanced Directive Advanced Directive Advanced Directive Advanced Directive Advanced Directive Advanced Directive Advanced Directive Advanced Directive Advanced Directive Advanced Directive Advanced Directive Advanced Directive Advanced Directive Advanced Directive Advanced Directive Advanced Directive Advanced Directive Advanced Directive Advanced Directive Advanced Directive Advanced Directive Advanced Directive Advanced Directive Advanced Directive Advanced Directive Advanced Directive Advanced Directive Advanced Directive Advanced Directive Advanced Directive Advanced Directive Advanced Directive Advanced Directive Advanced Directive Advanced Directive Advanced Directive Advanced Directive Advanced Directive Advanced Directive Advanced Directive Advanced Directive Advanced Directive Advanced Directive Advanced Directive Advanced Directive Advanced Directive Advanced Directive Advanced Directive Advanced Directive Advanced Directive Advanced Directive Advanced Directive Advanced Directive Advanced Directive Advanced Directive Advanced Directive Advanced Directive Advanced Directive Advanced Directive Advanced Directive Care Teams Special Crimes Investigator Relationship Specialty Start Date End Date Leanne Cardoza MD [address] [place] [address] [place] [id number] PCP - General Family Medicine 12/01/18 documented as of this encounter
--- OUTSIDE RECORDS SUMMARY | 2023-06-07 07:39 | External Medical Summary | Summary of Care ---
Author Name Unknown Organization [facility] [place] [address] Care Team Providers Care Judo Instructor Name Role Phone Yariel Cardoza MD Primary Care Provide r Reason for Visit * Reason Comments eRx-Medication Refill Encounter Details Date Type Department Care Team Description 08/11/2022 Refill Family Medicine [address] [place] [phone] Josie Ryan PA-C [address] [place] [address] [place] [phone] HTN, goal below 140/90 Allergies Active Allergy Reactions Severity Noted Date Comments Adhesive Tape 06/29/2003 Sensitive to Naproxen Hives 05/28/2015 Ivp Dye Hives 08/20/2000 Latex Other (Please comment) 01/05/2015 Contact rash Ibuprofen Rash 01/05/2015 documented as of this encounter (statuses as of 08/12/2022) Medications Medication Sig Dispensed Refills Start Date [...] . For 5 days 0 Active Nystatin 786454 UNIT/GM External Powder (Nystop)Indications:C andidal skin infection [...] as of this encounter (statuses as of 08/12/2022) Active Problems Problem Noted Date Nontoxic single [...] as of this encounter (statuses as of 08/12/2022) Resolved Problems Problem Noted Date Resolved Date [...] as of this encounter (statuses as of 08/12/2022) Immunizations Name Administration Dates Next Due COVID-19 mRNA, LNP-s, No Pre serve, 2-Dose Series ([employer]) 09/13/2021,12/16/2020,11/25/2020 Pneumococcal Conjugate Vacc, 13 Valent (Prevnar) [...] encounter Miscellaneous Notes * Telephone Encounter - Anand Parrish RPh - 08/12/2022 12:30 AM EDT Refused Prescriptions: Disp Refills Losartan Potassium 25 MG Oral Tablet (Coza*90 Tab*3 Sig: TAKE 1TABLET BY MOUTH EVERY DAYRefused By: ANAND APRRISH for Refusal: Dose needs clarificat ion documented in this encounter Plan of Treatment Upcoming Encounters Date Type Specialty Care Team Description 08/14/2022 Immunization [place]illary [place], Covid19 Vaccine [address] [place] [address] 08/17/2022 Home Visit [facility] Corrina Layne RN [address] [place] [address] 04/16/2023 Office Visit Family Medicine Yariel Cardoza MD [address] [place] [address] [place] [phone] Scheduled Procedures Name Priority Associated Diagnoses Date/Ti [...] for Pfizer series) 11/08/2021 09/13/2021, 12/16/2020, 11/25/2020 DXA Scan 08/17/2022 08/17/2015 Prediabetes-Yearly Hemoglobin A1c [...] Unspecified essential hypertension documented in this encounter Advance Directives Documents on File Type Date Recorded Patient 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
--- OUTSIDE RECORDS SUMMARY | 2023-06-07 07:39 | External Medical Summary | Summary of Care ---
Author Name Unknown Organization [place] [address] Care Team Providers Care Sprayer Machine Name Role Phone Yariel Cardoza MD Primary Care Provide r Reason for Visit * Reason Comments Medication Discussion Encounter Details Date Type Department Care Team Description 07/27/2022 Pharmacy Pharmacy Call Center [phone] [place] [address] [place], Telepharmacy Cmr Part D [phone] [facility] [place] [address] Encounter for medication review* Allergies Active Allergy Reactions Severity Noted Date Comments Adhesive Tape 06/29/2003 Sensitive to Naproxen Hives 05/28/2015 Ivp Dye Hives 08/20/2000 Latex Other (Please comment) 01/05/2015 Contact rash Ibuprofen Rash 01/05/2015 documented as of this encounter (statuses as of 07/27/2022) Medications Medication Sig Dispensed Refills Start Date [...] A DAY. 120 mL 5 10/16/2021 Active Amitriptyline HCl 25 MG Oral Tablet (Elavil) TAKE 1 TABLET BY MOUTH EVERYDAY AT BEDTIME 90 Tablet 1 11/01/2021 Active Potassium Chloride ER 10 MEQ Oral [...] . For 5 days 0 Active Nystatin 330762 UNIT/GM External Powder (Nystop)Indications:C andidal skin infection [...] daily . MWF only 0 05/24/2022 Active Cephalexin 500 MG Oral Capsule (Keflex) Take by mouth 500 mg 2 times a day . 0 06/20/2022 Active Ondansetron 4 MG Oral Tablet Disintegrating (Zofran) PLACE 1 TABLET ON TONGUE EVERY 8 HOURS NEEDED FOR NAUSEA. 30 Tablet 0 07/09/2022 Active Magnesium Oxide 500 MG Oral Tablet Take by mouth 1 Tablet in the morning AND 1 Tablet before bedtime. 180 Tablet 1 07/19/2022 Active documented as of this encounter (statuses as of 07/27/2022) Active Problems Problem Noted Date Nontoxic single [...] as of this encounter (statuses as of 07/27/2022) Resolved Problems Problem Noted Date Resolved Date [...] as of this encounter (statuses as of 07/27/2022) Immunizations Name Administration Dates Next Due COVID-19 mRNA, LNP-s, No Pre serve, 2-Dose Series ([employer]) 09/13/2021,12/16/2020,11/25/2020 Pneumococcal Conjugate Vacc, 13 Valent (Prevnar) [...] as of this encounter Progress Notes * Kalyani Miller, [facility] - 07/27/2022 10:35 AM EDT Images from the original note were not included. PHARMACY MTM [facility]GR[facility] [facility] [place] [address] Service Delivery Delivery Method: Phone Outcome: CMR Completed Health Profile Current Conditions: Blood Clot Prevention, Fluid Rentention, General Health, High Blood Pressure and High Cholesterol Drug allergies & side effects: Review of patient's allergies indicates: Allergen Reactions Adhesive Tape Sensitive to Aleve [Naproxen] Hives Ivp Dye Hives Latex Other (Please comment) Contact rash Motrin [Ibuprofen] Rash Med List Home Medications Provider albuterol-ipratropium (DUONEB) 2.5-0.5 MG/3ML nebulizer solution Yariel Cardoza MD INHALE 3 MLS VIA NEBULIZER EVERY 4 HOURS NEEDED FOR COUGH, SHORTNESS OF BREATH OR WHEEZING. Patient taking differently: Associated Diagnoses: COPD, severe (HCC) Amitriptyline HCl 25 MG Oral Tablet (Elavil) Yariel Cardoza MD TAKE 1 TABLET BY MOUTH EVERYDAY AT BEDTIME Patient taking differently: Associated Diagnoses: -- Atenolol 25 MG Oral Tablet (Tenormin) Yariel Cardoza MD TAKE 1 TABLET BY MOUTH EVERY DAY Patient taking differently: Associated Diagnoses: HTN, goal below 140/90 Atorvastatin Calcium 40 MG Oral Tablet (Lipitor) Yariel Cardoza MD TAKE 1 TABLET BY MOUTH EVERY DAY Patient taking differently: Associated Diagnoses: -- Azithromycin 250 MG Oral Tablet (Zithromax) Julienne Inman MD Associated Diagnoses: -- Benzonatate 100 MG Oral Capsule (Tessalon Perles) Josie Ryan PA-C Take 1 Capsule by mouth 3 times a day as needed for Cough. Patient taking differently: Take by mouth 100 mg 3 times a day as needed for Cough. Associated Diagnoses: Viral illness Bisacodyl 5 MG Oral Tablet Delayed Release (Dulcolax) History Per Patient Associated Diagnoses: -- Budesonide 0.5 MG/2ML Inhalation Suspension (Pulmicort) Yariel Cardoza MD INHALE ONE UNIT DOSE VIAL VIA NEBULIZER TWO TIMES A DAY. Patient taking differently: INHALE ONE UNIT DOSE VIAL VIA NEBULIZER TWO TIMES A DAY. Associated Diagnoses: COPD, severe (HCC) Cephalexin 500 MG Oral Capsule (Keflex) History Per Patient Associated Diagnoses: -- Cholecalciferol 1000 units Capsule History Per Patient Associated Diagnoses: -- Clopidogrel Bisulfate 75 MG Oral Tablet (pLAVix) Yariel Cardoza MD TAKE 1 TABLET BY MOUTH EVERY DAY Patient taking differently: Associated Diagnoses: Stenosis of right vertebral artery, TIA (transient ischemic attack) Dextromethorphan-guaiFENesin (CORICIDIN HBP CONGESTION/COUGH) 10-200 MG CAPS History Per Patient Associated Diagnoses: -- Dicyclomine HCl 10 MG Oral Capsule (Bentyl) Yariel Cardoza MD TAKE ONE CAPSULE BY MOUTH 4 TIMES DAILY NEEDED FOR ABDOMINAL PAIN, CRAMPING Patient taking differently: stomach Associated Diagnoses: Irritable bowel syndrome with both constipation and diarrhea DM-guaiFENesin ER 30-600 MG Oral Tablet Extended Release 12 Hour History Per Patient Associated Diagnoses: -- Furosemide 40 MG Oral Tablet (Lasix) Yariel Cardoza MD Take by mouth 1 Tablet in the morning. As needed for swelling or fluid accumulation. Patient taking differently: Take by mouth 40 mg daily . As needed for swelling or fluid accumulation Associated Diagnoses: Bilateral lower extremity edema hydroCHLOROthiazide 25 MG Oral Tablet (Hydrodiuril) Yariel Cardoza MD TAKE 1 TABLET BY MOUTH EVERY DAY IN THE MORNING Patient taking differently: Associated Diagnoses: -- Losartan Potassium 50 MG Oral Tablet (Cozaar) Yariel Cardoza MD Take by mouth 1 Tablet in the morning. Patient taking differently: Take by mouth 50 mg daily . Associated Diagnoses: HTN, goal below 140/90 Magnesium Oxide 500 MG Oral Tablet Yariel Cardoza MD Take by mouth 1 Tablet in the morning AND 1 Tablet before bedtime. Patient taking differently: Take by mouth 500 mg 2 times a day . Associated Diagnoses: -- Meclizine HCl 25 MG Oral Tablet (Antivert) Josie Ryan PA-C TAKE 1 TABLET BY MOUTH ONCE EVERY 6 HOURS NEEDED FOR DIZZINESS/VERTIGO Patient taking differently: TAKE 1 TABLET BY MOUTH ONCE EVERY 6 HOURS NEEDED FOR DIZZINESS/VERTIGO Associated Diagnoses: -- Naphazoline-Pheniramine 0.025-0.3 % Ophthalmic Solution (Naphcon-A) History Per Patient Associated Diagnoses: -- Nystatin 740416 UNIT/GM External Powder (Nystop) aYriel Cardoza MD APPLY TOPICALLY TO AFFECTED AREA 3 TIMES A DAY. Patient taking differently: APPLY TOPICALLY TO AFFECTED AREA 3 TIMES A DAY. Associated Diagnoses: Candidal skin infection Omeprazole 20 MG Oral Capsule Delayed Release (PriLOSEC) Yariel Cardoza MD TAKE 2 CAPSULES BY MOUTH EVERY DAY Patient taking differently: Associated Diagnoses: Gastroesophageal reflux disease without esophagitis Ondansetron 4 MG Oral Tablet Disintegrating (Zofran) Yariel Cardoza MD PLACE 1 TABLET ON TONGUE EVERY 8 HOURS NEEDED FOR NAUSEA. Patient taking differently: Place on tongue 4 mg every 8 hours as needed for Nausea. Associated Diagnoses: -- oxygen GAS Amarilys Viveros MD Use 2 L/min(Oxygen) as directed continuous. Associated Diagnoses: Hypoxia Notes: Dx = severe COPD with hypoxia. Polyethylene Glycol 3350 17 GM/SCOOP Oral Powder (MiraLax) History Per Patient Associated Diagnoses: -- Potassium Chloride ER 10 MEQ Oral Tablet Extended Release Yariel Cardoza MD TAKE 1 TABLET BY MOUTH EVERY DAY Associated Diagnoses: -- traMADol HCl 50 MG Oral Tablet (Ultram) History Per Patient Associated Diagnoses: -- umeclidinium-vilanterol (ANORO ELLIPTA) 62.5-25 MCG/INH AEPB History Per Patient Associated Diagnoses: -- VENTOLIN HFA 108 (90 Base) MCG/ACT inhaler Yariel Cardoza MD INHALE 2 PUFFS BY MOUTH EVERY 4 HOURS NEEDED FOR WHEEZING. Patient not taking: Reported on 07/27/2022 Associated Diagnoses: -- Zoster Vac Recomb Adjuvanted 50 MCG/0.5ML Intramuscular Suspension Reconstituted (Shingrix) Dane Cardoza MD Inject 0.5 mL into a large muscle now and repeat dose in 60 to 180 days Associated Diagnoses: Need for vaccination for zoster Notes: Pharmacy Restock Replacement TIPs None Action Plan 1. What type of item is this? Non-medication related Describe the item for the patient takeaway: Saving money on your medicaions Describe what the patient should do (for the patient takeaway): You can get a 90 day supply of your prescription medications delivered to your home. You also can be signed up for automatic refills, and your prescriptions can be synced up to refill at the same time. Typically, patients who switch to mail order save money on their monthly prescriptions. You will have access to a pharmacist to answer any questions about your medications (Saturday-Saturday, 6:30 am to 7 pm). Call [phone] to enroll in mail order services today. Takeaway Service Information o Date CMR was completed: 07/27/2022 o Who was the recipient of the CMR service: Patient o Was the patient in a longterm care (LTC) facility when the CMR was completed? No o Pharmacist's availability for questions: Saturday-Saturday 8:00am-4:30pm Takeaway Information o Will the Patient Takeaway be sent to the Patient or someone else? Patient o Language Template for the Patient Takeaway: American o Additional notes for the Patient Takeaway (optional): n/a I attest that I have reviewed and updated the patient's conditions, allergies, and medications to the best of my ability. Additional Call Notes Pt denied any issues with meds, is up to date on labs and appears adherent to meds Med list gathered by IPPE students 10 min clinical assessment Kalyani Miller [facility] Clinical Pharmacist Telepharmacy 07/27/2022, 10:35 AM documented in this encounter Plan of Treatment Upcoming Encounters Date Type Specialty Care Team Description 08/17/2022 [facility] Visit [facility] Corrina Layne RN [address] [facility] [place] [address] 04/16/2023 Office Visit Family Medicine Yariel Cardoza MD [address] [place] [address] [place] [address] Scheduled Procedures Name Priority Associated Diagnoses Date/Ti [...] as of this encounter Visit Diagnoses Diagnosis Encounter for medication review- Primary Encounter for long-term (current) use of other medications documented in this encounter Advance Directives Documents on File Type Date Recorded Patient World Designer Expl 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 Directive Advanced Directive Advanced Directive Care Teams Sprayer Machine Relationship Specialty Start Date End Date Yariel Cardoza MD [address] [place] [address] [place] [address] PCP - General Family Medicine 12/01/18 documented as of this encounter
--- OUTSIDE RECORDS SUMMARY | 2023-06-07 07:39 | External Medical Summary | Summary of Care ---
Author Name Unknown Organization [place] [address] Care Team Providers Care Motor Inspection Mechanic Name Role Phone Leanne Montaño MD Primary Care Provide r Reason for Visit * Reason Onset Date Comments eRx-Medication Refill Medication Refill 08/02/2022 Encounter Details Date Type Department Care Team Description 07/28/2022 Telephone Family Medicine [address] [phone] Leanne Montaño MD [address] [place] [address] [place], [place] [id number] eRx-Medication Refill; Medication Refill Allergies Active Allergy Reactions Severity Noted Date Comments Adhesive Tape 06/29/2003 Sensitive to Naproxen Hives 05/28/2015 Ivp Dye Hives 08/20/2000 Latex Other (Please comment) 01/05/2015 Contact rash Ibuprofen Rash 01/05/2015 documented as of this encounter (statuses as of 08/02/2022) Medications Medication Sig Dispensed Refills Start Date End Date Status oxygen GASIndications:Hypo bryan Use 2 L/min(Oxygen) as directed continuous. 1 Each 0 7 Active VENTOLIN HFA 108 (90 Base) MCG/ACT inhaler INHALE 2 PUFFS BY MOUTH EVERY 4 HOURS NEEDED FOR WHEEZING. 1 Inhaler 5 8 Active umeclidinium-vilant lashon (ANORO ELLIPTA) 62.5-25 MCG/INH AEPBIndications:CATEGORY PLANNER D Inhale by mouth 1 Puff daily [...] . For 5 days 0 Active Nystatin 219889 UNIT/GM External Powder (Nystop)Indications :Candidal skin infection [...] as of this encounter (statuses as of 08/02/2022) Active Problems Problem Noted Date Nontoxic single [...] as of this encounter (statuses as of 08/02/2022) Resolved Problems Problem Noted Date Resolved Date [...] as of this encounter (statuses as of 08/02/2022) Immunizations Name Administration Dates Next Due COVID-19 mRNA, LNP-s, No Pre serve, 2-Dose Series ([employer]rength) 09/13/2021,12/16/2020,11/25/2020 Pneumococcal Conjugate Vacc, 13 Valent (Prevnar) [...] encounter Miscellaneous Notes * Telephone Encounter - Lamont James LPN - 08/02/2022 3:35 PM EDT Contacted [facility] pharmacy and Amitriptyline is approved and can be picked up tomorrow 08/03/22 Pt was made aware * Telephone Encounter - Allie Daugherty CPhT - 08/02/2022 11:56 AM EDT Patient calling to inform doctor that the patient's insurance will not pay for this medication without a completed prior authorization. Did confirm this information with the pharmacy. Please advise pharmacy if ok for patient to use discount card for 12 dollars Pt's current insurance information is as follows: Patient name: Jayla Hayes ID number: [id number] BIN number: [id number] PCN number: [id number] Group number: Subscriber name: Jayla Hayes Primary or Secondary Insurance:Primary Medication: Amitriptyline HCl 25 MG Reason for Request: increased fall risk" [facility]" patient previously used discount card for 12 dollars Pharmacy and phone number: [id number] [id number] [facility] Rx plan and phone number: GHP Go;d [phone] What alternative medications does the pharmacy have in stock?: Allie Kruse Plant Sciences Professor II Pharmacy Refill Call Center 2:07 PM * Telephone Encounter - Vipul Apple RPh - 07/28/2022 2:27 PM EDT Signed Prescriptions: Disp Refills Amitriptyline HCl 25 MG Oral Tablet (Elavi*90 Tab*3 Sig: TAKE 1TABLET BY MOUTH EVERYDAY AT BEDTIMEAuthorizing Provider: LEANNE MONTAÑO User: VIPUL APPLE documented in this encounter Plan of Treatment Upcoming Encounters Date Type Specialty Care Team Description 08/17/2022 Home Visit [facility] Corrina Layne RN [address] [place] [address] 04/16/2023 Office Visit Family Medicine Leanne Montaño MD [address] [place] [address] [place] [address] Scheduled Procedures Name Priority [...] Documents on File Type Date Recorded Patient Retail Coverage Merchandiser Lead Expl 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 Directive Advanced Directive Advanced Directive Care Teams Motor Inspection Mechanic Relationship Specialty Start Date End Date Leanne Montaño MD [address] [place] [address] [place] [id number] PCP - General Family Medicine 12/01/18 documented as of this encounter
--- OUTSIDE RECORDS SUMMARY | 2023-06-07 07:39 | External Medical Summary | Summary of Care ---
Author Name Unknown Organization [place] [address] Care Team Providers Care Biofuels Production Manager Name Role Phone Yariel Cardoza MD Primary Care Provide r Encounter Details Date Type Department Care Team Description 07/19/2022 Scan Encounter Family Medicine [address] [place] [address] Yariel Cardoza MD [address] [place] [address] [place] [address] <No scans attached> Allergies Active Allergy Reactions Severity Noted Date Comments Adhesive Tape 06/29/2003 Sensitive to Naproxen Hives 05/28/2015 Ivp Dye Hives 08/20/2000 Latex Other (Please comment) 01/05/2015 Contact rash Ibuprofen Rash 01/05/2015 documented as of this encounter (statuses as of 07/23/2022) Medications Medication Sig Dispensed Refills Start Date End Date Status oxygen GASIndications:Hypoxi a Use 2 L/min(Oxygen) as directed continuous. 1 Each 0 02/18/2017 Active VENTOLIN HFA 108 (90 Base) MCG/ACT inhaler INHALE 2 PUFFS BY MOUTH EVERY 4 HOURS NEEDED FOR WHEEZING. 1 Inhaler 5 02/10/2018 Active umeclidinium-vilanter ol (ANORO ELLIPTA) 62.5-25 MCG/INH AEPB Inhale 1 Puff by mouth daily. 0 Active Dextromethorphan-guai FENesin (CORICIDIN HBP CONGESTION/COUGH) [...] Take 10 mg by mouth at bedtime. 0 Active Naphazoline-Phenirami ne 0.025-0.3 % Ophthalmic [...] 1 Tablet before bedtime. For 5 days. 0 Active Nystatin 237636 UNIT/GM External Powder (Nystop)Indications:C andidal skin infection [...] 250 mg in the morning. MWF only. 0 05/24/2022 Active Cephalexin 500 MG Oral Capsule (Keflex) Take by mouth 500 mg in the morning AND 500 mg before bedtime. 0 06/20/2022 Active Ondansetron 4 MG Oral Tablet Disintegrating (Zofran) PLACE 1 TABLET ON TONGUE EVERY 8 HOURS NEEDED FOR NAUSEA. 30 Tablet 0 07/09/2022 Active Magnesium Oxide 500 MG Oral Tablet Take by mouth 1 Tablet in the morning AND 1 Tablet before bedtime. 180 Tablet 1 07/19/2022 Active documented as of this encounter (statuses as of 07/23/2022) Active Problems Problem Noted Date Nontoxic single [...] as of this encounter (statuses as of 07/23/2022) Resolved Problems Problem Noted Date Resolved Date [...] as of this encounter (statuses as of 07/23/2022) Immunizations Name Administration Dates Next Due COVID-19 mRNA, LNP-s, No Pre serve, 2-Dose Series ([employer]) 09/13/2021,12/16/2020,11/25/2020 Pneumococcal Conjugate Vacc, 13 Valent (Prevnar) [...] Visit Family Medicine Yariel Cardoza MD [address] [place] [address] [place] [address] Scheduled Procedures Name Priority [...] Documents on File Type Date Recorded Patient Dispersion Mixer Expl 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 Directive Advanced Directive Advanced Directive Care Teams Biofuels Production Manager Relationship Specialty Start Date End Date Yariel Cardoza MD [address] [place] [address] [place] [address] PCP - General Family Medicine 12/01/18 documented as of this encounter
--- OUTSIDE RECORDS SUMMARY | 2023-06-07 07:39 | External Medical Summary | Summary of Care ---
Author Name Unknown Organization [place] [address] Care Team Providers Care Clinical Account Specialist Name Role Phone Yariel Cardoza MD Primary Care Provide r Encounter Details Date Type Department Care Team Description 08/04/2022 Scan Encounter Family Medicine [address] [place] [address] Yariel Cardoza MD [address] [place] [address] [place] [address] <No scans attached> Allergies Active Allergy Reactions Severity Noted Date Comments Adhesive Tape 06/29/2003 Sensitive to Naproxen Hives 05/28/2015 Ivp Dye Hives 08/20/2000 Latex Other (Please comment) 01/05/2015 Contact rash Ibuprofen Rash 01/05/2015 documented as of this encounter (statuses as of 08/06/2022) Medications Medication Sig Dispensed Refills Start Date [...] . For 5 days 0 Active Nystatin 425128 UNIT/GM External Powder (Nystop)Indications:C andidal skin infection [...] AT BEDTIME 90 Tablet 3 07/28/2022 Active documented as of this encounter (statuses as of 08/06/2022) Active Problems Problem Noted Date Nontoxic single [...] as of this encounter (statuses as of 08/06/2022) Resolved Problems Problem Noted Date Resolved Date [...] as of this encounter (statuses as of 08/06/2022) Immunizations Name Administration Dates Next Due COVID-19 mRNA, LNP-s, No Pre serve, 2-Dose Series ([employer]) 09/13/2021,12/16/2020,11/25/2020 Pneumococcal Conjugate Vacc, 13 Valent (Prevnar) [...] Specialty Care Team Description 08/17/2022 [facility] Corrina Layne RN [address] [place] [address] [place] [address] 04/16/2023 Office Visit Family Medicine Yariel Cardoza MD [address] [place] [address] [place] [phone] Scheduled Procedures Name Priority Associated Diagnoses Date/Ti [...] Documents on File Type Date Recorded Patient Prize Coordinator Expl 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 Directive Advanced Directive Advanced Directive Care Teams Clinical Account Specialist Relationship Specialty Start Date End Date Yariel Cardoza MD [address] [place] [address] [place] [address] PCP - General Family Medicine 12/01/18 documented as of this encounter
--- OUTSIDE RECORDS SUMMARY | 2023-06-07 07:39 | External Medical Summary | Summary of Care ---
Author Name Unknown Organization [place] [address] Care Team Providers Care Crown Assembly Machine Operator Name Role Phone Yariel Cardoza MD Primary Care Provide r Encounter Details Date Type Department Care Team Description 07/30/2022 Orders Only Outcomes Research Department [address] [place] [address] Josefina Sibley CHRA [facility] Research Other*[id number] Allergies Active Allergy Reactions Severity Noted Date Comments Adhesive Tape 06/29/2003 Sensitive to Naproxen Hives 05/28/2015 Ivp Dye Hives 08/20/2000 Latex Other (Please comment) 01/05/2015 Contact rash Ibuprofen Rash 01/05/2015 documented as of this encounter (statuses as of 07/30/2022) Medications Medication Sig Dispensed Refills Start Date [...] . For 5 days 0 Active Nystatin 516952 UNIT/GM External Powder (Nystop)Indications:C andidal skin infection [...] as of this encounter (statuses as of 07/30/2022) Active Problems Problem Noted Date Nontoxic single [...] as of this encounter (statuses as of 07/30/2022) Resolved Problems Problem Noted Date Resolved Date [...] as of this encounter (statuses as of 07/30/2022) Immunizations Name Administration Dates Next Due COVID-19 mRNA, LNP-s, No Pre serve, 2-Dose Series ([employer]) 09/13/2021,12/16/2020,11/25/2020 Pneumococcal Conjugate Vacc, 13 Valent (Prevnar) [...] Visit [facility] Corrina Layne RN [address] [facility] [place] [address] 04/16/2023 Office Visit Family Medicine Yariel Cardoza MD [address] [place] [address] [place] [address] Scheduled Orders Name Type Priority Associated Diagnoses Orde r Schedule MYCODE INITIAL ADULT Lab Routine My[facility] Research Other*[id number] Expected: 07/30/2022 (Approximate), Expires: 08/19/2023 Scheduled Procedures Name Priority Associated Diagnoses Date/Ti [...] as of this encounter Visit Diagnoses Diagnosis My[facility] Research Other*[id number] documented in this encounter Advance Directives Documents on File Type Date Recorded Patient Sterile Instrument Technician Expl 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 Directive Advanced Directive Advanced Directive Care Teams Crown Assembly Machine Operator Relationship Specialty Start Date End Date Yariel Cardoza MD [address] [place] [address] [place] [address] PCP - General Family Medicine 12/01/18 documented as of this encounter
--- OUTSIDE RECORDS SUMMARY | 2023-06-07 07:39 | External Medical Summary | Summary of Care ---
Author Name Unknown Organization [place] [address] Care Team Providers Care Licensed Mental Health Counselor Name Role Phone Yariel Cardoza MD Primary Care Provide r Reason for Visit * Reason Onset Date Comments Emergency Department Follow-Up 08/07/2022 E D follow up Encounter Details Date Type Department Care Team Description 08/07/2022 Telephone Family Medicine [address] [address] Yariel Cardoza MD [address] [place] [address] [place], [place] [phone] Emergency Department Follow-Up (ED follow up) Allergies Active Allergy Reactions Severity Noted Date Comments Adhesive Tape 06/29/2003 Sensitive to Naproxen Hives 05/28/2015 Ivp Dye Hives 08/20/2000 Latex Other (Please comment) 01/05/2015 Contact rash Ibuprofen Rash 01/05/2015 documented as of this encounter (statuses as of 08/07/2022) Medications Medication Sig Dispensed Refills Start Date [...] . For 5 days 0 Active Nystatin 392358 UNIT/GM External Powder (Nystop)Indications:C andidal skin infection [...] as of this encounter (statuses as of 08/07/2022) Active Problems Problem Noted Date Nontoxic single [...] as of this encounter (statuses as of 08/07/2022) Resolved Problems Problem Noted Date Resolved Date [...] as of this encounter (statuses as of 08/07/2022) Immunizations Name Administration Dates Next Due COVID-19 mRNA, LNP-s, No Pre serve, 2-Dose Series ([facility]) 09/13/2021,12/16/2020,11/25/2020 Pneumococcal Conjugate Vacc, 13 Valent (Prevnar) [...] encounter Miscellaneous Notes * Telephone Encounter - Mendy Blake LPN - 08/07/2022 9:54 AM EDT Emergency Department Follow Up: When was patient seen: 08.04.2022 Which ED: [facility] What were they seen for: right sided rib pain. What testing did they have done: cxr, ekg, lab work and ct scan What did ED think was wrong (dx): right sided chest pain, pleuritic chest pain and pneumonia. Any new medications prescribed: cefdinir and zpak. How is patient feeling today: Is feeling pretty good. Every now and then she gets the right sided rib pain with deep breaths but is not as bad as it was. Patient concerns today: No. Appt scheduled for 08.10.2022 * Telephone Encounter - VIRA Ybarra - 08/07/2022 9:51 AM EDT Reason for patient's call: ED follow up Caller was transferred to [facility] at the nurse line. documented in this encounter Plan of Treatment Upcoming Encounters Date Type Specialty Care Team Description 08/10/2022 Office Visit Family Medicine Josie Ryan PA-C [address] [place] [address] [place] [phone] 08/17/2022 [facility] Corrina Layne RN [address] [facility] [place] [address] 04/16/2023 Office Visit Family Medicine Yariel Cardoza MD [address] [place] [address] [place] [phone] Scheduled Procedures Name Priority Associated Diagnoses Date/Ti [...] Documents on File Type Date Recorded Patient Senior Editor Expl 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 Directive Advanced Directive Advanced Directive Care Teams Licensed Mental Health Counselor Relationship Specialty Start Date End Date Yariel Cardoza MD [address] [place] [address] [place] [id number] PCP - General Family Medicine 12/01/18 documented as of this encounter
--- OUTSIDE RECORDS SUMMARY | 2023-06-07 07:39 | External Medical Summary | Summary of Care ---
Author Name Unknown Organization [place] [address] Care Team Providers Care Hydrometer Tester Name Role Phone Leanne Montaño MD Primary Care Provide r Reason for Visit * Reason Onset Date Comments eRx-Medication Refill Medication Refill 08/02/2022 Encounter Details Date Type Department Care Team Description 07/28/2022 Telephone Family Medicine [address] [address] Leanne Montaño MD [address] [place] [address] [place], [place] [phone] eRx-Medication Refill; Medication Refill Allergies Active Allergy [...] Active umeclidinium-vilant lashon (ANORO ELLIPTA) 62.5-25 MCG/INH AEPBIndications:CERTIFIED MASTER SAFECRACKER D Inhale by mouth 1 Puff daily [...] . For 5 days 0 Active Nystatin 054994 UNIT/GM External Powder (Nystop)Indications :Candidal skin infection [...] mRNA, LNP-s, No Pre serve, 2-Dose Series ([employer]) 09/13/2021,12/16/2020,11/25/2020 Pneumococcal Conjugate Vacc, 13 Valent (Prevnar) [...] encounter Miscellaneous Notes * Telephone Encounter - Allie Daugherty CPhT [...] follows: Patient name: Jayla Hayes ID number: [id number] BIN number: [id number] PCN number: [id number] Group number: Subscriber name: Jayla Hayes Primary or Secondary Insurance:Primary Medication: Amitriptyline HCl 25 MG Reason for Request: increased fall risk" [facility]" patient previously used discount card for 12 dollars Pharmacy and phone number: [id number] Rx plan and phone number: MEKHI Go;sushma [phone] What alternative medications does the pharmacy have in stock?: Allie Kruse Functional Director II Pharmacy Refill Call Center 2:07 PM * Telephone Encounter - Vipul Apple [facility] - 07/28/2022 2:27 PM EDT Signed Prescriptions: Disp Refills Amitriptyline HCl 25 MG Oral Tablet (Elavi*90 Tab*3 Sig: TAKE 1 TABLET BY MOUTH EVERYDAY AT BEDTIMEAuthorizing Provider: LEANNE MONTAÑOOrderronald User: VIPUL APPLE documented in this encounter Plan of Treatment Upcoming Encounters Date Type Specialty Care Team Description 08/17/2022 Home Visit [facility] Corrina Layne RN [address] [place], [place] [address] [address] 04/16/2023 Office Visit Family Medicine Leanne Montaño MD [address] [place] [address] [place] [phone] Scheduled Procedures Name Priority Associated Diagnoses Date/Ti [...] Documents on File Type Date Recorded Patient Ammonia Operator Expl 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 Directive Advanced Directive Advanced Directive Care Teams Hydrometer Tester Relationship Specialty Start Date End Date Leanne Montaño MD [address] [place] [address] [place] [id number] PCP - General Family Medicine 12/01/18 documented as of this encounter
--- OUTSIDE RECORDS SUMMARY | 2023-06-07 07:39 | External Medical Summary | Summary of Care ---
Author Name Unknown Organization [place] [address] Care Team Providers Care Radial Drill Press Operator Name Role Phone Yariel Cardoza MD Primary Care Provide r Encounter Details Date Type Department Care Team Description 07/27/2022 Scan Encounter Family Medicine [address] [place] [address] Yariel Cardoza MD [address] [place] [address] [place] [address] <No scans attached> Allergies Active Allergy Reactions Severity Noted Date Comments Adhesive Tape 06/29/2003 Sensitive to Naproxen Hives 05/28/2015 Ivp Dye Hives 08/20/2000 Latex Other (Please comment) 01/05/2015 Contact rash Ibuprofen Rash 01/05/2015 documented as of this encounter (statuses as of 07/31/2022) Medications Medication Sig Dispensed Refills Start Date [...] . For 5 days 0 Active Nystatin 161707 UNIT/GM External Powder (Nystop)Indications:C andidal skin infection [...] as of this encounter (statuses as of 07/31/2022) Active Problems Problem Noted Date Nontoxic single [...] as of this encounter (statuses as of 07/31/2022) Resolved Problems Problem Noted Date Resolved Date [...] as of this encounter (statuses as of 07/31/2022) Immunizations Name Administration Dates Next Due COVID-19 mRNA, LNP-s, No Pre serve, 2-Dose Series ([employer]) 09/13/2021,12/16/2020,11/25/2020 Pneumococcal Conjugate Vacc, 13 Valent (Prevnar) [...] Specialty Care Team Description 08/17/2022 Home Visit [facility] Corrina Layne RN [address] [facility] [place] [phone] 04/16/2023 Office Visit Family Medicine Yariel Cardoza MD [address] [place] [address] [place] [id number] Scheduled Procedures Name Priority Associated Diagnoses Date/Ti [...] Documents on File Type Date Recorded Patient Forging Machine Operator Expl 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 Directive Advanced Directive Advanced Directive Care Teams Radial Drill Press Operator Relationship Specialty Start Date End Date Yariel Cardoza MD [address] [place] [address] [place] [phone] PCP - General Family Medicine 12/01/18 documented as of this encounter
--- OUTSIDE RECORDS SUMMARY | 2023-06-07 07:40 | External Medical Summary | Summary of Care ---
Author Name Unknown Organization [place] [address] Care Team Providers Care Loom Changeover Operator Name Role Phone Yariel Cardoza MD Primary Care Provide r Reason for Visit * Reason Comments Re-Check Encounter Details Date Type Department Care Team Description 06/22/2022 Office Visit Family Medicine [address] [place] [address] Yariel Cardoza MD [address] [place] [address] [place] [phone] COPD, severe (HCC)*; Hypomagnesemia; HTN, goal below [...] as of this encounter (statuses as of 06/22/2022) Medications Medication Sig Dispensed Refills Start Date [...] mouth 2 times a day. 0 Active Ondansetron 4 MG Oral Tablet Disintegrating Place 1 Tablet on tongue every 8 hours as needed for Nausea. 30 Tablet 0 09/13/2021 Active Benzonatate 100 MG Oral Capsule (Tessalon [...] bedtime. For 5 days. 0 Active Nystatin 457950 UNIT/GM External Powder (Nystop)Indications:C andidal skin infection [...] the morning. MWF only. 0 05/24/2022 Active Magnesium Oxide 500 MG Oral Tablet Take by mouth 500 mg in the morning AND 500 mg before bedtime. 0 06/19/2022 Active Cephalexin 500 MG Oral Capsule (Keflex) Take by mouth 500 mg in the morning AND 500 mg before bedtime. 0 06/20/2022 Active documented as of this encounter (statuses as of 06/22/2022) Active Problems Problem Noted Date Nontoxic single [...] as of this encounter (statuses as of 06/22/2022) Resolved Problems Problem Noted Date Resolved Date [...] as of this encounter (statuses as of 06/22/2022) Immunizations Name Administration Dates Next Due COVID-19 mRNA, LNP-s, No Pre serve, 2-Dose Series ([employer]) 09/13/2021,12/16/2020,11/25/2020 Pneumococcal Conjugate Vacc, 13 Valent (Prevnar) [...] Progress Notes * Yariel Cardoza MD - 06/22/2022 10:31 [...] was in the ER. Is enrolled in [employer] [facility]. Follows with pulmonary at [facility], Dr. Mayer. Is on Zithromax MWF [...] goal LDL below 100 E78.5 COPD, severe (HCC) J44.9 Severe obesity with body mass index (BMI) of 35.0 to 39.9 with serious comorbidity (HCC) E66.01 Lumbar degenerative disc disease M51.36 Lumbar [...] Oral Tablet (Ultram) 50 mg . Nystatin 722264 UNIT/GM External Powder (Nystop) APPLY TOPICALLY TO [...] syndrome 07/20/2015 COPD (chronic obstructive pulmonary disease) ([facility]) COPD, severe ([facility]) 12/21/2015 COPD, severity to be determined ([facility]) 07/20/2015 Dyslipidemia, goal LDL below 100 10/16/2015 Dyslipidemia, goal LDL below 130 08/22/2015 FAM HX-CARDIOVAS DIS NEC 01/28/2002 Generalized osteoarthritis 08/22/2015 GERD (gastroesophageal reflux disease) 07/20/2015 Hypertrophy of breast 08/31/2003 IBS (irritable bowel syndrome) 07/20/2015 Kidney disease, chronic, stage III (GFR 30-59 ml/min) ([facility]) 10/16/2015 Kidney stone Lumbar degenerative disc disease 02/06/2016 Lumbar facet arthropathy ([facility]) 02/06/2016 Lumbar spinal stenosis 02/18/2017 Mixed incontinence urge and stress (male)(female) 07/20/2015 Multiple thyroid nodules 09/09/2016 Obesity, Class II, BMI 35.0-39.9, with comorbidity (see actual BMI) 01/19/2016 Primary osteoarthritis of right knee 02/18/2017 Pulmonary hypertension ([facility]) 05/07/2017 Reflux esophagitis 01/28/2002 Slow transit constipation 07/20/2015 Thyroid nodule 09/05/2016 Tubular adenoma of colon 07/20/2015 Urge incontinence 05/03/2004 Urinary, incontinence, stress female 02/21/2016 Past Surgical History: Procedure Laterality Date ARTHROCENT ASP &/OR INJ MAJOR JX/BURSA W/O US 04/06/2019 ARTHROCENTESIS OR INJECTION MAJOR JOINT performed by Todd Johnson Cousins, DO at OR [facility] BIOPSY OF BREAST, OPEN 1971 benign, right, removed nipple for blocked milk glands BIOPSY OF BREAST, OPEN 1976 left, benign BREAST SURGERY PROCEDURE NEC bilateral Breast Reduction 09/20/03 BUNION CORRECTED WITH DOUBLE OSTEOTOMY 1991 right foot COLONOSCOPY, DIAGNOSTIC (RECTUM) 03/08/2015 adenomatous polyps, repeat 3 yrs/[facility] COLONOSCOPY, DIAGNOSTIC (RECTUM) 03/26/2018 adenomatous & serrated adenomatous polyps, repeat 3 yrs/[facility] EGD, FLEXIBLE, DIAGNOSTIC 01/21/2015 [facility] EGD, FLEXIBLE, DIAGNOSTIC 07/22/2018 mild gastritis, Schatzki ring, duodenal polyp/[facility] ESOPHAGOSCOPY RIGID TRANSORAL HYPOPHARYNX ESOPHAGUS 2004 [...] July. Recommend completing antibiotics. Recommend continuing magnesium assisted. Right hand pain and weakness likely from arthritis in hand and had cramping while washing dishes. States her hand was very painful at the time. Is better now. Follow up: in 6 month(s). Yariel Cardoza MD documented in this encounter Nursing Notes * Karlene Nichole LPN - 06/22/2022 10:18 AM EDT 6 month recheck Was in [facility] on Saturday for UTI Given Keflex & Magnesium Has been taking meds for 2 days. Feeling a little better. documented in this encounter Plan of Treatment Upcoming Encounters Date Type Specialty Care Team Description 07/20/2022 Home Visit [facility] Corrina Layne RN [address] [facility] [place] [address] 04/16/2023 Office Visit Family Medicine Yariel Cardoza MD [address] [place] [address] [place] [address] Scheduled Orders Name Type Priority Associated Diagnoses [...] Vaccine (4 - Booster for Pfizer series) 01/12/2022 09/13/2021, 12/16/2020, 11/25/2020 Influenza Vaccine (FLU shot) (#1) 2022 06/20/2021, 08/12/2020, 08/12/2020, Additional history exists DXA Scan 08/17/2022 08/17/2015 GFR - Renal Function 11/28/2022 11/28/2021, 06/06/2021, 12/26/2020, Additional history exists Prediabetes-Yearly Hemoglobin A1c 11/28/2022 11/28/2021, 11/28/2021, 12/26/2020, Additional history exists O2 ASSESSMENT COMPLETED IN PAST YEAR FOR COPD 06/15/2023 06/15/2022 COLONOSCOPY-EVERY 3 YRS AGES 18-100 08/28/2024 08/28/2021, [...] and unspecified hyperlipidemia documented in this encounter Advance Directives Documents on File Type Date Recorded Patient Fnp Expl 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 Directive Advanced Directive Advanced Directive Care Teams Loom Changeover Operator Relationship Specialty Start Date End Date Yariel Cardoza MD [address] [place] [address] [place] [id number] PCP - General Family Medicine 12/01/18 documented as of this encounter
--- OUTSIDE RECORDS SUMMARY | 2023-06-07 07:40 | External Medical Summary | Summary of Care ---
Author Name Unknown Organization [place] [address] Care Team Providers Care Food Service Substitute Name Role Phone Yariel Cardoza MD Primary Care Provide r Encounter Details Date Type Department Care Team Description 07/17/2022 Orders Only Family Medicine [address] [address] Yariel Cardoza MD [address] [place] [address] [place] [address] Allergies Active Allergy Reactions Severity Noted Date Comments Adhesive Tape 06/29/2003 Sensitive to Naproxen Hives 05/28/2015 Ivp Dye Hives 08/20/2000 Latex Other (Please comment) 01/05/2015 Contact rash Ibuprofen Rash 01/05/2015 documented as of this encounter (statuses as of 07/17/2022) Medications Medication Sig Dispensed Refills Start Date [...] bedtime. For 5 days. 0 Active Nystatin 564934 UNIT/GM External Powder (Nystop)Indications:C andidal skin infection [...] FOR NAUSEA. 30 Tablet 0 07/09/2022 Active documented as of this encounter (statuses as of 07/17/2022) Active Problems Problem Noted Date Nontoxic single [...] as of this encounter (statuses as of 07/17/2022) Resolved Problems Problem Noted Date Resolved Date [...] as of this encounter (statuses as of 07/17/2022) Immunizations Name Administration Dates Next Due COVID-19 mRNA, LNP-s, No Pre serve, 2-Dose Series ([employer]) 09/13/2021,12/16/2020,11/25/2020 Pneumococcal Conjugate Vacc, 13 Valent (Prevnar) [...] Specialty Care Team Description [facility] 132 [facility] [place] [address] 04/16/2023 Office Visit Family Medicine Yariel Cardoza MD [address] [place] [address] [place] [phone] Scheduled Procedures Name Priority Associated Diagnoses Date/Ti [...] 08/17/2022 08/17/2015 GFR - Renal Function 11/28/2022 06/19/2022, 11/28/2021, 06/06/2021, Additional history exists Prediabetes-Yearly Hemoglobin A1c 11/28/2022 [...] Procedure Name Priority Date/Time Associated Diagnosis Comments CHEMISTRY-OUTSIDE Routine 06/19/2022 documented in this encounter Results * CHEMISTRY-OUTSIDE (06/19/2022) CREATININE-OUTSIDE LAB 0.63 0.6 - 1.2 MG/DL OUTSIDE LAB (SEE SCANNED REPORT) EGFR-OUTSIDE LAB 85.9 ML/MIN/1.73M2 OUTSIDE LA B (SEE SCANNED REPORT) POTASSIUM-OUTSIDE LAB 3.8 3.5 - 5.1 MMOL/L OUTSIDE LAB (SEE SCANNED REPORT) GLUCOSE-OUTSIDE LAB 98 70 - 99 MG/DL OUTSIDE LAB (SEE SCANNED REPORT) HOURS FASTING OUTSIDE LAB (S EE SCANNED REPORT) TRIGLYCERIDES-OUTSID E LAB OUTSIDE LAB (SEE SCANNED REPORT) CHOLESTEROL-OUTSIDE LAB OUTSIDE LAB (SEE SCANNED REPORT) HDL-OUTSIDE LAB OUTSIDE LAB (SEE SCANNED REPORT) CHOL/HDL RATIO-OUTSIDE LAB OUTSIDE LAB (SEE SCANNED REPORT) LDL (CALCULATED)-OUTSIDE LAB OUTSIDE LAB (SEE SCANNED REPORT) LDL (DIRECT MEASURE)-OUTSIDE LAB OUTSIDE LAB (SEE SCANNED REPORT) HEMOGLOBIN, [id number] LAB OUTSIDE LAB (SEE SCANNED REPORT) PHOSPHORUS-OUTSIDE LAB OUTSIDE LAB (SEE SCANNED REPORT) PTH-OUTSIDE LAB OUTSIDE LAB (SEE SCANNED REPORT) MICROALBUMIN RATIO-OUTSIDE LAB OUTSIDE LAB (SEE SCANNED REPORT) PROTEIN, UA-OUTSIDE LAB NEGATIVE OUTSIDE LAB (SEE SCANNED REPORT) HEMOGLOBIN-OUTSIDE LAB 14.3 12 - 16 G/DL OUTSIDE LAB (SEE SCANNED REPORT) CHEMISTRY COMMENT-OUTSIDE LAB Comment:SEE SCAN: [facility] ED LABS - CBCD, CMP, MG, TROP I HS, UA OUTSIDE LAB (SEE SCANNED REPORT) Specimen Narrative Performing Organization Address City/State/[facility] Co de Phone Number OUTSIDE LAB (SEE SCANNED REPORT) documented in this encounter Advance Directives Documents on File Type Date Recorded Patient Automation Test Engineer Expl 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 Directive Advanced Directive Advanced Directive Care Teams Food Service Substitute Relationship Specialty Start Date End Date Yariel Cardoza MD [address] [place] [address] [place] [address] PCP - General Family Medicine 12/01/18 documented as of this encounter
--- OUTSIDE RECORDS SUMMARY | 2023-06-07 07:40 | External Medical Summary | Summary of Care ---
Author Name Unknown Organization [place] [address] Care Team Providers Care Director Global Name Role Phone Yariel Cardoza MD Primary Care Provide r Encounter Details Date Type Department Care Team Description 07/11/2022 Scan Encounter Family Medicine [address] [place] [address] Yariel Cardoza MD [address] [place] [address] [place] [address] <No scans attached> Allergies Active Allergy Reactions Severity Noted Date Comments Adhesive Tape 06/29/2003 Sensitive to Naproxen Hives 05/28/2015 Ivp Dye Hives 08/20/2000 Latex Other (Please comment) 01/05/2015 Contact rash Ibuprofen Rash 01/05/2015 documented as of this encounter (statuses as of 07/13/2022) Medications Medication Sig Dispensed Refills Start Date [...] bedtime. For 5 days. 0 Active Nystatin 363702 UNIT/GM External Powder (Nystop)Indications:C andidal skin infection [...] as of this encounter (statuses as of 07/13/2022) Active Problems Problem Noted Date Nontoxic single [...] as of this encounter (statuses as of 07/13/2022) Resolved Problems Problem Noted Date Resolved Date [...] as of this encounter (statuses as of 07/13/2022) Immunizations Name Administration Dates Next Due COVID-19 mRNA, LNP-s, No Pre serve, 2-Dose Series ([employer]) 09/13/2021,12/16/2020,11/25/2020 Pneumococcal Conjugate Vacc, 13 Valent (Prevnar) [...] Specialty Care Team Description 07/20/2022 Home Visit [facility] Corrina Layne, RN [address] [facility] [place] [address] 04/16/2023 Office Visit Family Medicine Yariel Cardoza MD [address] [place] [address] [place] [address] Scheduled Procedures Name Priority Associated Diagnoses Date/Ti [...] Documents on File Type Date Recorded Patient Intake Clerk Expl 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 Directive Advanced Directive Advanced Directive Care Teams Director Global Relationship Specialty Start Date End Date Yariel Cardoza MD [address] [place] [address] [place] [id number] PCP - General Family Medicine 12/01/18 documented as of this encounter
--- OUTSIDE RECORDS SUMMARY | 2023-06-07 07:40 | External Medical Summary | Summary of Care ---
Author Name Unknown Organization [place] [address] Care Team Providers Care Political Consultant Name Role Phone Yariel Cardoza MD Primary Care Provide r Encounter Details Date Type Department Care Team Description 07/17/2022 Orders Only Family Medicine [address] [address] Yariel Cardoza MD [address] [place] [address] [place] [address] Allergies Active Allergy Reactions Severity Noted [...] bedtime. For 5 days. 0 Active Nystatin 112617 UNIT/GM External Powder (Nystop)Indications:C andidal skin infection [...] mRNA, LNP-s, No Pre serve, 2-Dose Series ([employer]) 09/13/2021,12/16/2020,11/25/2020 Pneumococcal Conjugate Vacc, 13 Valent (Prevnar) [...] Specialty Care Team Description [facility] [address] [facility] [place] [address] 04/16/2023 Office Visit Family Medicine Yariel Cardoza MD [address] [place] [address] [place] [phone] Scheduled Procedures Name Priority Associated Diagnoses Date/Ti [...] Procedure Name Priority Date/Time Associated Diagnosis Comments XR CHEST 1 VIEW Routine 06/19/2022 documented in this encounter Results * XR CHEST 1 VIEW (06/19/2022) Anatomical Region Laterality Modality Chest Other Specimen Narrative OUTSIDE LAB (SEE SCANNED REPORT) documented in this encounter Advance Directives Documents on File Type Date Recorded Patient Outpatient Surgery Rn Expl 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 Directive Advanced Directive Advanced Directive Care Teams Political Consultant Relationship Specialty Start Date End Date Yariel Cardoza MD [address] [place] [address] [place] [phone] PCP - General Family Medicine 12/01/18 documented as of this encounter
--- OUTSIDE RECORDS SUMMARY | 2023-06-07 07:40 | External Medical Summary | Summary of Care ---
Author Name Unknown Organization [place] [address] Care Team Providers Care Parts Administrator Name Role Phone Yariel Cardoza MD Primary Care Provide r Encounter Details Date Type Department Care Team Description 06/19/2022 Scan Encounter Family Medicine [address] [place] [address] Yariel Cardoza MD [address] [place] [address] [place] [address] <No scans attached> Allergies Active Allergy Reactions Severity Noted Date Comments Adhesive Tape 06/29/2003 Sensitive to Naproxen Hives 05/28/2015 Ivp Dye Hives 08/20/2000 Latex Other (Please comment) 01/05/2015 Contact rash Ibuprofen Rash 01/05/2015 documented as of this encounter (statuses as of 07/02/2022) Medications Medication Sig Dispensed Refills Start Date [...] bedtime. For 5 days. 0 Active Nystatin 828442 UNIT/GM External Powder (Nystop)Indications:C andidal skin infection [...] the morning. MWF only. 0 05/24/2022 Active documented as of this encounter (statuses as of 07/02/2022) Active Problems Problem Noted Date Nontoxic single [...] as of this encounter (statuses as of 07/02/2022) Resolved Problems Problem Noted Date Resolved Date [...] as of this encounter (statuses as of 07/02/2022) Immunizations Name Administration Dates Next Due COVID-19 mRNA, LNP-s, No Pre serve, 2-Dose Series ([employer]) 09/13/2021,12/16/2020,11/25/2020 Pneumococcal Conjugate Vacc, 13 Valent (Prevnar) [...] Specialty Care Team Description 07/20/2022 Home Visit [facility] Corrina Layne RN [address] [facility] [place] [address] 04/16/2023 Office Visit Family Medicine Yariel Cardoza MD [address] [place] [address] [place] [address] Scheduled Procedures Name Priority Associated Diagnoses Date/Ti [...] Documents on File Type Date Recorded Patient Mud Analysis Operator Expl 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 Directive Advanced Directive Advanced Directive Care Teams Parts Administrator Relationship Specialty Start Date End Date Yariel Cardoza MD [address] [place] [address] [place] [id number] PCP - General Family Medicine 12/01/18 documented as of this encounter
--- OUTSIDE RECORDS SUMMARY | 2023-06-07 07:40 | External Medical Summary | Summary of Care ---
Author Name Unknown Organization [place] [address] Care Team Providers Care Triage Clinician Name Role Phone Yariel Cardoza MD Primary Care Provide r Reason for Visit * Reason Comments [facility]: Maintenance Encounter Details Date Type Department Care Team Description 07/20/2022 Home Visit [facility], [facility] [address] [place] [address] Corrina Layne RN [address] [facility] [place] [address] Allergies Active Allergy Reactions Severity Noted Date Comments Adhesive Tape 06/29/2003 Sensitive to Naproxen Hives 05/28/2015 Ivp Dye Hives 08/20/2000 Latex Other (Please comment) 01/05/2015 Contact rash Ibuprofen Rash 01/05/2015 documented as of this encounter (statuses as of 07/20/2022) Medications Medication Sig Dispensed Refills Start Date [...] bedtime. For 5 days. 0 Active Nystatin 901513 UNIT/GM External Powder (Nystop)Indications:C andidal skin infection [...] as of this encounter (statuses as of 07/20/2022) Active Problems Problem Noted Date Nontoxic single [...] as of this encounter (statuses as of 07/20/2022) Resolved Problems Problem Noted Date Resolved Date [...] as of this encounter (statuses as of 07/20/2022) Immunizations Name Administration Dates Next Due COVID-19 mRNA, LNP-s, No Pre serve, 2-Dose Series (Neohapsis) 09/13/2021,12/16/2020,11/25/2020 Pneumococcal Conjugate Vacc, 13 Valent (Prevnar) [...] of this encounter Progress Notes * Corrina Layne RN - 07/20/2022 2:12 PM EDT [facility] Roll Grinder Operator Monthly Visit Date: 07/20/2022 Time: 1000 AM Name: Jayla Hayes : 1945 Situation: Pt being seen for follow up visit. Background: Past medical hx includes: severe COPD,VIRA, HTN, PVD, IBS, GERD, TIA, depression, obesity. Uses oxygen 2L @ HS. Patient recently hospitalized for pneumonia/ copd exacerbation. states that she had developed a cough that worsened over a 3 day period. She presented to ED due to increased sob and increased oxygen needs requiring oxygen during the daylight hours. Negative for covid. Diagnosed with acute on chronic respiratory failure, COPD exacerbation and community acquired pneumonia. She received IV antibiotics, steroids and was discharged home 04/10 to continue with 5 more days of augmentin which she did complete. Patient was also instructed to use oxygen @ 2L for activity and at HS. She had also had a recent ED visit for right ankle pain. xrays negative for fractures. Denies trauma / fall. Patient is following with Dr Andrews (podiatry) for treatment. Pt had CT scan of right ankle on 05/02/22 . Uric acid levels were tested and WNL. Negative for lymes screen. Patient was ordered CAM boot. No longer wearing. Only reports occasional pain. Assessment: Had ED visit 06/19/22 for sudden onset weakness. Head CT negative. Was diagnosed with uti. Finished antibiotic. No further symptoms of uti. Magnesium noted to be low. Taking bid now. Says that her GI symptoms have improved since starting. Had scope yesterday. Says that Dr Low told her her stomach was normal. Feeling good today. Recommendation: Continue all medications as ordered/reviewed. Follow [...] Negative. Psychiatric/Behavioral: Negative. Physical Exam: Physical Exam Cardiovascular: Rate and Rhythm: Normal rate and regular rhythm. Pulmonary: Effort: Pulmonary effort is normal. Breath sounds: Normal breath sounds. Abdominal: General: There is no distension. Palpations: Abdomen is soft. Musculoskeletal: Right lower leg: No edema. Left lower leg: No edema. Skin: General: Skin is warm and dry. Neurological: Mental Status: She is alert and oriented to person, place, and time. [facility]-10 Completed this Visit: No. Routine visit and No falls since last visit Home Interventions Provided: Reinforced current Plan of Care, including self-management and medication regimen Medication Reconciliation: (See medication list) Does patient take medications as ordered: Yes Advanced Care Planning: Living Will. Referrals Needed: margarito Layne RN 07/20/2022 2:22 PM documented in this encounter Plan of Treatment Upcoming Encounters Date Type Specialty Care Team Description 04/16/2023 Office Visit Family Medicine Yariel Cardoza MD [address] [place] [address] [place] [address] Scheduled Procedures Name Priority [...] Documents on File Type Date Recorded Patient Equipment Technician Expl 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 Directive Advanced Directive Advanced Directive Care Teams Triage Clinician Relationship Specialty Start Date End Date Yariel Cardoza MD [address] [place] [address] [place] [phone] PCP - General Family Medicine 12/01/18 documented as of this encounter
--- OUTSIDE RECORDS SUMMARY | 2023-06-07 07:40 | External Medical Summary | Summary of Care ---
Author Name Unknown Organization [place] [address] Care Team Providers Care Pai Gow Dealer Name Role Phone Yariel Cardoza MD Primary Care Provide r Encounter Details Date Type Department Care Team Description 07/23/2022 Orders Only Family Medicine [address] [address] Yariel Cardoza MD [address] [place] [address] [place] [address] Allergies Active Allergy Reactions Severity Noted [...] bedtime. For 5 days. 0 Active Nystatin 275836 UNIT/GM External Powder (Nystop)Indications:C andidal skin infection [...] mRNA, LNP-s, No Pre serve, 2-Dose Series (Sans[employer]) 09/13/2021,12/16/2020,11/25/2020 Pneumococcal Conjugate Vacc, 13 Valent (Prevnar) [...] Office Visit Family Medicine Yariel Cardoza MD [address] [place] [address] [place] [address] Scheduled Procedures Name Priority [...] Procedure Name Priority Date/Time Associated Diagnosis Comments UPPER ENDOSCOPY, OUTSIDE PROCEDURE Routine 07/19/2022 documented in this encounter Results * UPPER ENDOSCOPY, OUTSIDE PROCEDURE (07/19/2022) Specimen Narrative Performing Organization Address City/State/[facility] Co de Phone Number OUTSIDE LAB (SEE SCANNED REPORT) documented in this encounter Advance Directives Documents on File Type Date Recorded Patient Hygiene Teacher Expl 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 Directive Advanced Directive Advanced Directive Care Teams Pai Gow Dealer Relationship Specialty Start Date End Date Yariel Cardoza MD [address] [place] [address] [place] [address] PCP - General Family Medicine 12/01/18 documented as of this encounter
--- OUTSIDE RECORDS SUMMARY | 2023-06-07 07:40 | External Medical Summary | Summary of Care ---
Author Name Unknown Organization [place] [address] Care Team Providers Care Head Bander And Liner Operator Name Role Phone Leanne Cardoza MD Primary Care Provide r Reason for Visit * Reason Comments eRx-Medication Refill Encounter Details Date Type Department Care Team Description 07/06/2022 Refill [facility], [facility] [address] [facility] [place] [id number] Landon [place] DO [address] [place] [address] Allergies Active Allergy Reactions Severity Noted Date Comments Adhesive Tape 06/29/2003 Sensitive to Naproxen Hives 05/28/2015 Ivp Dye Hives 08/20/2000 Latex Other (Please comment) 01/05/2015 Contact rash Ibuprofen Rash 01/05/2015 documented as of this encounter (statuses as of 07/09/2022) Medications Medication Sig Dispensed Refills Start Date End Date Status oxygen GASIndications:Hypo bryan Use 2 L/min(Oxygen) as directed continuous. 1 Each 0 7 Active VENTOLIN HFA 108 (90 Base) MCG/ACT inhaler INHALE 2 PUFFS BY MOUTH EVERY 4 HOURS NEEDED FOR WHEEZING. 1 Inhaler 5 8 Active umeclidinium-vilant lashon (ANORO ELLIPTA) 62.5-25 MCG/INH AEPB Inhale 1 Puff by mouth daily. 0 Active Dextromethorphan-gu aiFENesin (CORICIDIN HBP CONGESTION/COUGH) [...] mg by mouth at bedtime. 0 Active Naphazoline-Phenira mine 0.025-0.3 % Ophthalmic [...] A DAY. 120 mL 5 2 Active Amitriptyline HCl 25 MG Oral Tablet (Elavil) TAKE 1 TABLET BY MOUTH EVERYDAY AT BEDTIME 90 Tablet 1 2 Active Potassium Chloride ER 10 MEQ [...] bedtime. For 5 days. 0 Active Nystatin 447301 UNIT/GM External Powder (Nystop)Indications :Candidal skin infection [...] mg in the morning. MWF only. 0 2 Active Magnesium Oxide 500 MG Oral Tablet Take by mouth 500 mg in the morning AND 500 mg before bedtime. 0 2 Active Cephalexin 500 MG Oral Capsule (Keflex) Take by mouth 500 mg in the morning AND 500 mg before bedtime. 0 2 Active Ondansetron 4 MG Oral Tablet Disintegrating (Zofran) PLACE 1 TABLET ON TONGUE EVERY 8 HOURS NEEDED FOR NAUSEA. 30 Tablet 0 2 Active Ondansetron 4 MG Oral Tablet Disintegrating Place 1 Tablet on tongue every 8 hours as needed for Nausea. 30 Tablet 0 1 07/09/20 22 Discontinued documented as of this encounter (statuses as of 07/09/2022) Active Problems Problem Noted Date Nontoxic single [...] as of this encounter (statuses as of 07/09/2022) Resolved Problems Problem Noted Date Resolved Date [...] as of this encounter (statuses as of 07/09/2022) Immunizations Name Administration Dates Next Due COVID-19 mRNA, LNP-s, No Pre serve, 2-Dose Series ([employer]) 09/13/2021,12/16/2020,11/25/2020 Pneumococcal Conjugate Vacc, 13 Valent (Prevnar) [...] encounter Miscellaneous Notes * Telephone Encounter - Leanne Cardoza MD - 07/09/2022 11:56 AM EDT Signed Prescriptions: Disp Refills Ondansetron 4 MG Oral Tablet Disintegratin*30 Tab*0 Sig: PLACE 1 TABLET ON TONGUE EVERY 8 HOURS NEEDED FOR NAUSEA. Authorizing Provider: LEANNE CARDOZA * Telephone Encounter - SAMIR Mckenzie - 07/09/2022 11:55 AM EDT Pending Prescriptions: Disp Refills Ondansetron 4 MG Oral Tablet Disintegratin*30 Tab*0 Sig: Place 1 Tablet on tongue every 8 hours as needed for Nausea. * Telephone Encounter - Kellen Gates [facility] - 07/09/2022 11:16 AM EDT Pending Prescriptions: Disp Refills Ondansetron 4 MG Oral Tablet Disintegrati*30 Tab*0 Sig: PLACE 1 TABLET ON TONGUE EVERY 8 HOURS NEEDED FOR NAUSEA. * Telephone Encounter - Kellen Gates [facility] - 07/09/2022 11:15 AM EDT Did you pend patient's preferred pharmacy and medication before forwarding?yes Pharmacy: [id number] [id number] [facility] Pending Prescriptions: Disp Refills Ondansetron 4 MG Oral Tablet Disintegrati*30 Tab*0 Sig: PLACE 1 TABLET ON TONGUE EVERY 8 HOURS NEEDED FOR NAUSEA. Last Visit: Visit date not found (in office), Visit date not found (telemedicine) Next Visit: Visit date not found If no future appointments scheduled, and last appointment is greater than a year ago, please schedule patient for a follow-up appointment Last date the medication was ordered: 09/13/2021 Is this request for a controlled substance?No Urine Drug Screen:No results found. However, due to the size of the patient record, not all encounters were searched. Please check Results Review for a complete set of results. Patient Phone Numbers Labs: Lab Results Component Value Date/Time CREAT 0.8 11/28/2021 09:08 AM CREAT 0.87 09/22/2020 12:00 AM CREAT 0.9 05/06/2020 10:15 AM POTASSIUM 4.7 11/28/2021 09:08 AM POTASSIUM 5.2 (A) 09/22/2020 12:00 AM POTASSIUM 4.1 05/06/2020 10:15 AM TSH 1.26 11/28/2021 09:08 AM TSH 0.69 04/17/2017 10:53 AM LDLCALC 79 11/28/2021 09:08 AM LDLCALC 35 09/20/2020 12:00 AM LDLCALC 51 07/28/2018 02:30 PM LDLDIRECT 70 08/18/2019 11:10 AM ALT 32 11/28/2021 09:08 AM ALT 22 05/06/2020 10:15 AM HGBA1C 6.1 (H) 11/28/2021 09:08 AM HGBA1C 5.7 03/19/2017 08:05 AM documented in this encounter Plan of Treatment Upcoming Encounters Date Type Specialty Care Team Description 07/20/2022 Home Visit [facility] Corrina Layne RN [address] [facility] [place] [address] 04/16/2023 Office Visit Family Medicine Leanne Cardoza MD [address] [place] [address] [place] [id number] Scheduled Procedures Name Priority Associated Diagnoses Date/Ti [...] Documents on File Type Date Recorded Patient Pile Driving Technician Expl 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 Directive Advanced Directive Advanced Directive Care Teams Head Bander And Liner Operator Relationship Specialty Start Date End Date Leanne Cardoza MD [address] [place] [address] [place] [address] PCP - General Family Medicine 12/01/18 documented as of this encounter
--- OUTSIDE RECORDS SUMMARY | 2023-06-07 07:40 | External Medical Summary | Summary of Care ---
Author Name Unknown Organization [place] [address] Care Team Providers Care Solution Strategist Name Role Phone Yariel Cardoza MD Primary Care Provide r Encounter Details Date Type Department Care Team Description 06/19/2022 Result Scan Unspecified Department <No scans attached> Allergies Active Allergy Reactions Severity Noted Date Comments Adhesive Tape 06/29/2003 Sensitive to Naproxen Hives 05/28/2015 Ivp Dye Hives 08/20/2000 Latex Other (Please comment) 01/05/2015 Contact rash Ibuprofen Rash 01/05/2015 documented as of this encounter (statuses as of 07/17/2022) Medications Medication Sig Dispensed Refills Start Date End Date Status oxygen GASIndications:Hypox ia Use 2 L/min(Oxygen) as directed continuous. 1 Each 0 02/18/2017 Active VENTOLIN HFA 108 (90 Base) MCG/ACT inhaler INHALE 2 PUFFS BY MOUTH EVERY 4 HOURS NEEDED FOR WHEEZING. 1 Inhaler 5 02/10/2018 Active umeclidinium-vilante rol (ANORO ELLIPTA) 62.5-25 MCG/INH AEPB Inhale 1 Puff by mouth daily. 0 Active Dextromethorphan-gua iFENesin (CORICIDIN HBP CONGESTION/COUGH) 10-200 MG CAPS Take by mouth. Every 4-6 hours as needed for cough 0 Active Cholecalciferol 1000 units Capsule Take 2,000 Units by mouth daily. 0 Active albuterol-ipratropiu m (DUONEB) 2.5-0.5 MG/3ML nebulizer solutionIndications: COPD, severe (HCC) INHALE 3 MLS VIA NEBULIZER EVERY 4 HOURS NEEDED FOR COUGH, SHORTNESS OF BREATH OR WHEEZING. 360 mL 1 04/11/2020 Active Meclizine HCl 25 MG Oral Tablet (Antivert) TAKE 1 TABLET BY MOUTH ONCE EVERY 6 HOURS NEEDED FOR DIZZINESS/VERTIG O 10 Tab 0 06/06/2021 Active Bisacodyl 5 MG Oral Tablet Delayed Release (Dulcolax) Take 10 mg by mouth at bedtime. 0 Active Naphazoline-Pheniram ine 0.025-0.3 % Ophthalmic Solution (Naphcon-A)Indicatio ns:1-2 drops each eye as needed for eye irritation 1 Drop 3 times a day . 0 Active Polyethylene Glycol 3350 17 GM/SCOOP Oral Powder (MiraLax) Take 17 g by mouth 2 times a day. 0 Active Benzonatate 100 MG Oral Capsule (Tessalon Perles)Indications:V iral illness Take 1 Capsule by mouth 3 times a day as needed for Cough. 30 Capsule 1 09/27/2021 Active Zoster Vac Recomb Adjuvanted 50 MCG/0.5ML Intramuscular Suspension Reconstituted (Shingrix)Indication s:Need for vaccination for zoster Inject 0.5 mL into a large muscle now and repeat dose in 60 to 180 days 1 Each 0 10/16/2021 Active Budesonide 0.5 MG/2ML Inhalation Suspension (Pulmicort)Indicatio ns:COPD, severe (HCC) INHALE ONE UNIT DOSE VIAL [...] Omeprazole 20 MG Oral Capsule Delayed Release (PriLOSEC)Indication s:Gastroesophageal reflux disease without esophagitis TAKE 2 CAPSULES BY MOUTH EVERY DAY 180 Capsule 3 02/26/2022 Active Atorvastatin Calcium 40 MG Oral Tablet (Lipitor) TAKE 1 TABLET BY MOUTH EVERY DAY 90 Tablet 3 02/26/2022 Active Dicyclomine HCl 10 MG Oral Capsule (Bentyl)Indications: Irritable bowel syndrome with both constipation and [...] bedtime. For 5 days. 0 Active Nystatin 827294 UNIT/GM External Powder (Nystop)Indications: Candidal skin infection APPLY TOPICALLY TO AFFECTED AREA 3 TIMES A DAY. 60 g 1 04/16/2022 Active Furosemide 40 MG Oral Tablet (Lasix)Indications:B ilateral lower extremity edema Take by mouth 1 Tablet in the morning. As needed for swelling or fluid accumulation. 30 Tablet 0 04/26/2022 Active hydroCHLOROthiazide 25 MG Oral Tablet (Hydrodiuril) TAKE 1 TABLET BY MOUTH EVERY DAY IN THE MORNING 90 Tablet 2 05/02/2022 Active Clopidogrel Bisulfate 75 MG Oral Tablet (pLAVix)Indications: Stenosis of right vertebral artery,TIA (transient ischemic attack) TAKE 1 TABLET BY MOUTH EVERY DAY 90 Tablet 2 05/11/2022 Active Atenolol 25 MG Oral Tablet (Tenormin)Indication s:HTN, goal below 140/90 TAKE 1 TABLET BY MOUTH EVERY DAY 90 Tablet 1 05/25/2022 Active Losartan Potassium 50 MG Oral Tablet (Cozaar)Indications: HTN, goal below 140/90 Take by mouth 1 [...] mRNA, LNP-s, No Pre serve, 2-Dose Series (BugBuster) 09/13/2021,12/16/2020,11/25/2020 Pneumococcal Conjugate Vacc, 13 Valent (Prevnar) [...] Specialty Care Team Description 07/20/2022 Home Visit [facility] Corrina [place] RN [address] [phone] 04/16/2023 Office Visit Family Medicine Yariel Cardoza MD [address] [place] [address] [place] [phone] Scheduled Procedures Name Priority Associated Diagnoses Date/Ti [...] Procedure Name Priority Date/Time Associated Diagnosis Comments EKG SCANNED RESULT 06/19/2022 RADIOLOGY SCANNED RESULT 06/19/2022 RADIOLOGY SCANNED RESULT 06/19/2022 documented in this encounter Results * RADIOLOGY SCANNED RESULT (06/19/2022) Specimen Narrative * RADIOLOGY SCANNED RESULT (06/19/2022) Specimen Narrative * EKG SCANNED RESULT (06/19/2022) Specimen Narrative documented in this encounter Advance Directives Documents on File Type Date Recorded 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
--- OUTSIDE RECORDS SUMMARY | 2023-06-07 07:40 | External Medical Summary | Summary of Care ---
Author Name Unknown Organization [place] [address] Care Team Providers Care Us Customs And Border Officer Name Role Phone Yariel Cardoza MD Primary Care Provide r Reason for Visit * Reason Onset Date Comments Medication Question 07/12/2022 Med Request 07/12/2022 Magnesium Encounter Details Date Type Department Care Team Description 07/12/2022 Telephone Family Medicine [address] [place] [address] Yariel Cardoza MD [address] [place] [address] [place] [phone] Medication Question; Med Request (Magnesium ) Allergies Active Allergy Reactions Severity Noted Date [...] bedtime. For 5 days. 0 Active Nystatin 117777 UNIT/GM External Powder (Nystop)Indications :Candidal skin infection [...] before bedtime. 180 Tablet 1 07/19/2022 Active Magnesium Oxide 500 MG Oral Tablet Take by mouth 500 mg in the morning AND 500 mg before bedtime. 0 06/19/2022 2 Discontinue d(Refill) documented as of this encounter (statuses as [...] mRNA, LNP-s, No Pre serve, 2-Dose Series (IEMO) 09/13/2021,12/16/2020,11/25/2020 Pneumococcal Conjugate Vacc, 13 Valent (Prevnar) [...] encounter Miscellaneous Notes * Telephone Encounter - Tata Mack LPN - 07/20/2022 9:59 AM EDT Patient notified of message below, verbalizes understanding. * Telephone Encounter - Yariel Cardoza MD - 07/19/2022 3:28 PM EDT Sent to pharm * Telephone Encounter - Claribel Tovar LPN - 07/19/2022 3:17 PM EDT Rx pending. Thanks. * Telephone Encounter - VIRA Cline - 07/13/2022 11:25 AM EDT Patient has been notified of the message. Patient would like a prescription for magnesium. Please advise * Telephone Encounter - Yariel Cardoza MD - 07/12/2022 2:16 PM EDT She should not have to stop it for an EGD unless the GI doctor tells her to. * Telephone Encounter - Nissa De La Rosa CPhT - 07/12/2022 8:03 AM EDT Pt calling and states she is getting an EGD procedure done on 07/19/22 and was asking if she shouldstop taking her plavix. Pt can be reached at [phone]. Please advise. Thank you, Nissa De La Rosa Roll Inspector Isotera 07/12/2022,8:06 AM documented in this encounter Plan of Treatment Upcoming Encounters Date Type Specialty Care Team Description 04/16/2023 Office Visit Family Medicine Yariel Cardoza MD [address] [place] [address] [place] [phone] Scheduled Procedures Name Priority [...] Documents on File Type Date Recorded Patient Valving Machine Operator Expl anation Advanced Directive Advanced [...] Directive Advanced Directive Advanced Directive Care Teams Us Customs And Border Officer Relationship Specialty Start Date End Date Yariel Cardoza MD [address] [place] [address] [place] [phone] PCP - General Family Medicine 12/01/18 documented as of this encounter
--- OUTSIDE RECORDS SUMMARY | 2023-06-07 07:41 | External Medical Summary | Summary of Care ---
Author Name Unknown Organization [place] [address] Care Team Providers Care Auditor In Charge Name Role Phone Yariel Cardoza MD Primary Care Provide r Encounter Details Date Type Department Care Team Description 06/19/2022 Scan Encounter Family Medicine [address] [id number] Yariel Cardoza MD [address] [place] [address] [place] [address] <No scans attached> Allergies Active Allergy Reactions Severity Noted Date Comments Adhesive Tape 06/29/2003 Sensitive to Naproxen Hives 05/28/2015 Ivp Dye Hives 08/20/2000 Latex Other (Please comment) 01/05/2015 Contact rash Ibuprofen Rash 01/05/2015 documented as of this encounter (statuses as of 06/21/2022) Medications Medication Sig Dispensed Refills Start Date [...] HOURS NEEDED FOR DIZZINESS/VERTIGO 10 Tab 0 06/06/2021 Active Bisacodyl 5 MG Oral Tablet Delayed Release (Dulcolax) Take 10 mg by mouth at bedtime. 0 Active Naphazoline-Pheniram ine 0.025-0.3 % Ophthalmic Solution (Naphcon-A)Indicatio ns:1-2 drops each eye as needed for eye irritation 1 Drop 3 times a day. Indications: 1-2 drops each eye as needed for eye irritation 0 Active Polyethylene Glycol 3350 17 GM/SCOOP [...] PAIN, CRAMPING 360 Capsule 1 04/02/2022 Active Additional Information Patient not taking. Reported on 04/16/2022 traMADol HCl 50 MG Oral Tablet (Ultram) 50 mg . 0 04/01/2022 Active DM-guaiFENesin ER 30-600 MG Oral Tablet Extended Release 12 Hour Take by mouth 1 Tablet in the morning AND 1 Tablet before bedtime. For 5 days. 0 Active Nystatin 865934 UNIT/GM External Powder (Nystop)Indications: Candidal skin infection [...] as of this encounter (statuses as of 06/21/2022) Active Problems Problem Noted Date Acute right ankle pain 05/01/2022 Allergic rhinitis [...] as of this encounter (statuses as of 06/21/2022) Resolved Problems Problem Noted Date Resolved Date [...] as of this encounter (statuses as of 06/21/2022) Immunizations Name Administration Dates Next Due COVID-19 mRNA, LNP-s, No Pre serve, 2-Dose Series ([employer]) 09/13/2021,12/16/2020,11/25/2020 Pneumococcal Conjugate Vacc, 13 Valent (Prevnar) [...] Encounters Date Type Specialty Care Team Description 06/22/2022 Office Visit Family Medicine Yariel Cardoza MD [address] [place] [address] [place] [id number] 07/20/2022 [facility] Corrina Layne RN [address] [facility] [place] [address] Scheduled Procedures Name Priority Associated Diagnoses Date/Ti [...] Documents on File Type Date Recorded Patient Doggy Daycare Activities Director Expl 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 Directive Advanced Directive Advanced Directive Care Teams Auditor In Charge Relationship Specialty Start Date End Date Yariel Cardoza MD [address] [place] [address] [place] [address] PCP - General Family Medicine 12/01/18 documented as of this encounter
--- OUTSIDE RECORDS SUMMARY | 2023-06-07 07:41 | External Medical Summary | Summary of Care ---
Author Name Unknown Organization [place] [address] Care Team Providers Care Applications Scientist Name Role Phone Yariel Cardoza MD Primary Care Provide r Reason for Visit * Reason Comments [facility]: Maintenance Encounter Details Date Type Department Care Team Description 06/15/2022 Home Visit [facility] [address] [place] [address] Corrina Layne RN [address] [facility] [place] [address] Allergies Active Allergy Reactions Severity Noted Date Comments Adhesive Tape 06/29/2003 Sensitive to Naproxen Hives 05/28/2015 Ivp Dye Hives 08/20/2000 Latex Other (Please comment) 01/05/2015 Contact rash Ibuprofen Rash 01/05/2015 documented as of this encounter (statuses as of 06/20/2022) Medications Medication Sig Dispensed Refills Start Date [...] bedtime. For 5 days. 0 Active Nystatin 099655 UNIT/GM External Powder (Nystop)Indications: Candidal skin infection [...] as of this encounter (statuses as of 06/20/2022) Active Problems Problem Noted Date Acute right [...] as of this encounter (statuses as of 06/20/2022) Resolved Problems Problem Noted Date Resolved Date [...] as of this encounter (statuses as of 06/20/2022) Immunizations Name Administration Dates Next Due COVID-19 mRNA, LNP-s, No Pre serve, 2-Dose Series ([employer]) 09/13/2021,12/16/2020,11/25/2020 Pneumococcal Conjugate Vacc, 13 Valent (Prevnar) [...] Sign Reading Time Taken Comments Blood Pressure 150/80 06/15/2022 1:05 PM EDT Pulse 80 06/15/2022 1:05 PM EDT Temperature 36.8 C (98.2 F) 06/15/2022 1:05 PM ED T Respiratory Rate 18 06/15/2022 1:05 PM EDT Oxygen Saturation 97% 06/15/2022 1:05 PM EDT Inhaled Oxygen Concentration - - Weight - - Height - - Body Mass Index - - documented in this encounter Progress Notes * Corrina Layne RN - 06/15/2022 10:00 AM EDT [facility] Plier Worker Visit Date: 06/15/2022 Time: 10:00 AM Name: Jayla Hayes : 1945 Situation: Patient being seen for routine follow up visit. Background: Past medical hx [...] lymes screen. Patient was ordered CAM boot. Assessment: Patient reports her breathing has been at baseline. Using incentive spirometer. Needs new flutter valve. Sent orders previously. Will follow up. Was to see pulmonology. Started on azithromycin 250mg mwf. Using oxygen at 2L and cpap when sleeping. Ankle- pain much improved. No longer wearing CAM boot. Recommendation: Continue all medications as ordered/reviewed. Follow nebulizer treatments with flutter valve x 10 when available Orders placed for new flutter valve Oxygen at 2LPM with activity and at HS Azithromycin 250mg MWF RNCM return 07/20/22 Patient's 'Red Flags': 1. Swelling, redness of right ankle/foot/leg 2. Increased cough, wheezing, sob not relived by nebulizer treatment 3. Fever >100.4 Physical Exam: BP 150/80 (BP Site: Left Arm, BP Position: Sitting, BP Cuff Size: Large) | Pulse 80 | Temp 36.8 C(98.2 F) (Infrared ) | Resp 18 | SpO2 97% Pain 0 Physical Exam HENT: Mouth/Throat: Mouth: Mucous membranes are moist. Pharynx: Oropharynx is clear. Cardiovascular: Rate and Rhythm: Normal rate. Pulses: Normal pulses. Pulmonary: Effort: Pulmonary effort is normal. Abdominal: General: Bowel sounds are normal. There is no distension. Palpations: Abdomen is soft. Musculoskeletal: Right lower leg: Edema (mild non pitting ankle edema) present. Left lower leg: No edema. Skin: General: Skin is warm and dry. Neurological: Mental Status: She is alert and oriented to person, place, and time. Psychiatric: Mood and Affect: Mood normal. Behavior: Behavior normal. Thought Content: Thought content normal. Judgment: Judgment normal. Problems/Symptoms: Review of Systems Constitutional: Negative for chills and fever. Eyes: Negative. Respiratory: Negative for cough. Cardiovascular: Negative. Gastrointestinal: Negative for abdominal distention, abdominal pain and constipation. Endocrine: Negative. Genitourinary: Negative for difficulty urinating and dysuria. Musculoskeletal: Positive for arthralgias. Skin: Negative. Allergic/Immunologic: Negative. Neurological: Negative for dizziness and light-headedness. Hematological: Negative. Psychiatric/Behavioral: Negative. Medication Reconciliation: (See medication list) Does patient take medications as ordered: Yes Patient Well Being: PHQ2/9: No questionnaires available. WNL MAH-10 Completed this Visit: No. Routine visit and No falls since last visit Advanced Care Planning: Living Will. Reinforcement/Education: Educated on home safety: Create a fall [...] reflexes. o Certain medicines may cause falls blood pressure pills, heart medicines, water pills, or sleeping pills. o Be sure to understand each medicine that you are taking and any side effects that may occur. Improve your balance and flexibility with muscle strengthening exercises. Ask your health care provider for some exercises that will be right for you. COPD: Pt instructed to: -Call with increased SOB, wheezing, chest tightness, increased cough, increased sputum with change in color or consistency and fever. -Wash hands often -Drink plenty of fluids -Use inhalers as directed, do not stop or skip doses -Avoid stress -Rest when tired or SOB -Avoid triggers -Clean inhalers once a week Reinforced safety education and fall prevention. and Reinforced medication regimen. Timing., Dosing. and Purspose. Home Interventions Provided: Reinforced current Plan of Care, including self-management and medication regimen Patient Needs to Remember: Call [facility] at with any new or worsening health concerns or problems, red flag symptoms. Referrals Needed: NA Follow Up: Is there cellular connectivity/connectivity in the home? No Does the patient have internet in the home? Yes Patient encouraged to call the intake phone number for all urgent but not emergent issues. Is the patient new to [facility] within the last 30 days? No, Assess appropriateness for upcoming telehealth visits. Cancel telehealth visits & schedule home visit with care [employer] sales and lending team member(s)as indicated. Provider is in agreement with Plan of Care: Yes Scheduled to follow up with patient in 1 month Corrina Layne RN 06/15/2022 8:29 AM documented in this encounter Plan of Treatment Upcoming Encounters Date Type Specialty Care Team Description 06/22/2022 Office Visit Family Medicine Yariel Cardoza MD [address] [place] [address] [place] [phone] 07/20/2022 Home Visit [facility] Corrina Layne RN [address] [place] [address] [place] [address] Scheduled Procedures Name Priority Associated Diagnoses Date/Ti [...] Documents on File Type Date Recorded Patient Guide Changer Expl 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 Directive Advanced Directive Advanced Directive Care Teams Applications Scientist Relationship Specialty Start Date End Date Yariel Cardoza MD [address] [place] [address] [place] [address] PCP - General Family Medicine 12/01/18 documented as of this encounter"
--- OUTSIDE RECORDS SUMMARY | 2023-06-07 07:42 | External Medical Summary | Summary of Care ---
Author Name Unknown Organization [place] [address] Care Team Providers Care Technical Sales Support Manager Name Role Phone Yariel Cardoza MD Primary Care Provide r Reason for Visit * Reason Comments [facility]: Transition of Care Encounter Details Date Type Department Care Team Description 04/25/2022 Home Visit [facility], [facility] [address] [place] [address] Corrina Layne RN 132 [facility] [place] [address] COPD, severe ([facility])* Allergies Active Allergy Reactions Severity Noted Date Comments Adhesive Tape 06/29/2003 Sensitive to Naproxen Hives 05/28/2015 Ivp Dye Hives 08/20/2000 Latex Other (Please comment) 01/05/2015 Contact rash Ibuprofen Rash 01/05/2015 documented as of this encounter (statuses as of 05/01/2022) Medications Medication Sig Dispensed Refills Start Date [...] DIZZINESS/VERTIG O 10 Tab 0 06/06/2021 Active Losartan Potassium 50 MG Oral Tablet (Cozaar)Indications :HTN, goal below 140/90 Take 1 Tab by mouth daily. 30 Tab 5 06/20/2021 Active Bisacodyl 5 MG Oral Tablet Delayed [...] mouth 2 times a day. 0 Active Clopidogrel Bisulfate 75 MG Oral Tablet (pLAVix)Indications :Stenosis of right vertebral artery,TIA (transient ischemic attack) TAKE 1 TABLET BY MOUTH EVERY DAY 90 Tablet 2 09/07/2021 Active Ondansetron 4 MG Oral Tablet Disintegrating Place 1 Tablet on tongue every 8 hours as needed for Nausea. 30 Tablet 0 09/13/2021 Active Benzonatate 100 MG Oral Capsule (Tessalon Perles)Indications: Viral illness Take 1 Capsule by mouth 3 times a day as needed for Cough. 30 Capsule 1 09/27/2021 Active Atenolol 25 MG Oral Tablet (Tenormin)Indicatio ns:HTN, goal below 140/90 TAKE 1 TABLET BY MOUTH EVERY DAY 90 Tablet 1 10/04/2021 Active Zoster Vac Recomb Adjuvanted 50 MCG/0.5ML [...] EVERY DAY 90 Tablet 3 02/02/2022 Active hydroCHLOROthiazide 25 MG Oral Tablet (Hydrodiuril) Take by mouth 1 Tablet in the morning. 90 Tablet 0 02/08/2022 Active Omeprazole 20 MG Oral Capsule Delayed [...] bedtime. For 5 days. 0 Active Nystatin 628099 UNIT/ML Mouth/Throat SuspensionIndicatio ns:Thrush Swish and swallow 5 mL in the morning AND 5 mL at noon AND 5 mL in the evening AND 5 mL before bedtime. For thrush.. 240 mL 1 04/16/2022 05/16/20 22 Active Nystatin 497943 UNIT/GM External Powder (Nystop)Indications :Candidal skin infection APPLY TOPICALLY TO AFFECTED AREA 3 TIMES A DAY. 60 g 1 04/16/2022 Active Furosemide 40 MG Oral Tablet (Lasix)Indications: Bilateral lower extremity edema Take by mouth 1 Tablet in the morning. As needed for swelling or fluid accumulation. 30 Tablet 0 04/02/2022 04/26/20 22 Discontinu ed(Refill) documented as of this encounter (statuses as of 05/01/2022) Active Problems Problem Noted Date Allergic rhinitis 04/02/2022 Prediabetes 12/18/2021 Overview: Per [...] as of this encounter (statuses as of 05/01/2022) Resolved Problems Problem Noted Date Resolved Date [...] as of this encounter (statuses as of 05/01/2022) Immunizations Name Administration Dates Next Due COVID-19 mRNA, LNP-s, No Pre serve, 2-Dose Series ([employer]) 09/13/2021,12/16/2020,11/25/2020 Pneumococcal Conjugate Vacc, 13 Valent (Prevnar) [...] Sign Reading Time Taken Comments Blood Pressure 122/68 04/25/2022 4:55 PM EDT Pulse 80 04/25/2022 4:55 PM EDT Temperature 36.6 C (97.9 F) 04/25/2022 4:55 PM ED T Respiratory Rate 20 04/25/2022 4:55 PM EDT Oxygen Saturation 92% 04/25/2022 4:55 PM EDT Inhaled Oxygen Concentration - - Weight 94.8 kg (209 lb) 04/25/2022 4:55 PM EDT Height - - Body Mass Index 39.49 06/20/2021 9:03 AM EDT documented in this encounter Progress Notes * Corrina Layne RN - 04/25/2022 4:59 PM EDT [facility] Wet Pan Operator Visit Date: 04/25/2022 Time: 4:59 PM Name: Jayla Hayes : 1945 Situation: Patient being seen for [facility] enrollment today post acute hospitalization at [facility] 04/05-04/10/22 with dx of pneumonia. Background: Past medical hx includes: severe COPD,VIRA, HTN, PVD, IBS, GERD, TIA, depression, obesity. Uses oxygen 2L @ HS. Patient states that she had developed a cough [...] with Dr Andrews (podiatry) for treatment. Pt sche duled for CT scan of right ankle on 05/02/22. Uric acid levels were tested and WNL. Negative for lymes screen. Assessment: Patient alert and sitting on her cough with R leg elevated when RNCM arrived. Patient well known to this RN. Feels that her breathing has returned to near baseline. She has a follow up with pulmonology on 05/24/22-Dr Low of [facility]. Will need updated PFTs per hospitaldc notes. She was given a flutter valve in the hospital but it broke. Order placed to get her a newone. Using per pulmicort bid as ordered and duoneb every 4 hours as needed. Her main complaint is her right ankle pain. Pain is mostly located in the medial aspect around malleolus. Tender to palpate. No redness or bruising noted. Dr Andrews is working on getting a CAM boot for her to wear. Recommendation / Treatment Plan: Continue all medications as ordered/reviewed. Follow nebulizer treatments with flutter valve x 10 when Orders placed for new flutter valve Oxygen at 2LPM with activity and at HS Pulmonology follow up with [facility] 05/24/22. [facility] provider / TOC2 visit 05/01/22 RNCM return / CHRISTIE 3 05/07/22 Physical Exam: BP 122/68 (BP Site: Left Arm, BP Position: Sitting, BP Cuff Size: Regular) | Pulse 80 | Temp 36.6 C (97.9 F) (Infrared ) | Resp 20 | Wt 94.8 kg (209 lb) | SpO2 92% | BMI 39.49 kg/m | BSA 2.02 m Pain 7/10 right ankle Physical Exam Cardiovascular: Rate and Rhythm: Normal rate and regular rhythm. Pulses: Normal pulses. Pulmonary: Effort: Pulmonary effort is normal. Comments: diminished Abdominal: General: Bowel sounds are normal. There is no distension. Palpations: Abdomen is soft. Skin: General: Skin is warm and dry. Neurological: Mental Status: She is alert and oriented to person, place, and time. Problems/Symptoms: Review of Systems Constitutional: Negative for chills and fever. Respiratory: Positive for shortness of breath (with stairs, walking more than 200 feet). Negative for wheezing. Cardiovascular: Negative for chest pain, palpitations and leg swelling. Gastrointestinal: Negative for abdominal distention, abdominal pain, diarrhea, nausea and vomiting. Genitourinary: Negative for difficulty urinating and dysuria. Musculoskeletal: Positive for arthralgias. Right ankle pain Skin: Negative. Neurological: Negative for dizziness and light-headedness. Psychiatric/Behavioral: Negative. Medication Reconciliation: (See medication list) Does patient take medications as ordered: Yes Patient Well Being: PHQ2/9: No questionnaires available. Depression screen negative [facility]-10 Completed this Visit: Yes. [facility]-10: Reason Completed: Enrollment Status post ED visit/hospital admission [facility]-10 Interventions: Fall education provided, reviewed/provided Fall brochure Advanced Care Planning: Living Will. Reinforcement/Education: COPD: [...] you. Reinforced safety education and fall prevention. Home Interventions Provided: Consulted PCP/Specialist Reinforced current Plan of Care, including self-management and medication regimen Patient's 'Red Flags': 1. Swelling, redness of right ankle/foot/leg 2. Increased cough, wheezing, sob not relived by nebulizer treatment 3. Fever >100.4 Patient Needs to Remember: Call [facility] at with any new or worsening health concerns or problems, red flag symptoms. Referrals Needed: NA Follow Up: Is there cellular connectivity/connectivity in the home? No Does the patient have internet in the home? Yes Patient encouraged to call the intake phone number for all urgent but not emergent issues. Is the patient new to [facility] within the last 30 days? Yes, Is this a Transitions of Care visit? Yes, this is the 1st visit. Provider is in agreement with Plan of Care: Yes Scheduled to follow up with patient in 1 week with provider, 2 weeks with RNCM. Corrina Layne RN 04/25/2022 4:59 PM documented in this encounter Plan of Treatment Upcoming Encounters Date Type Specialty Care Team Description 05/01/2022 Home Visit [facility] Magda Guy PA-C [address] [place] [address] 05/07/2022 [facility] Visit [facility] Corrina Layne RN [address] [facility] [place] [address] 06/22/2022 Office Visit Family Medicine Yariel Cardoza MD [address] [place] [address] [place] [address] Scheduled Procedures Name Priority Associated Diagnoses Date/Ti me COLONOSCOPY FLEXIBLE PROXIMAL DIAGNOSTIC Recall History of colon polyps Health Maintenance Due Date Last Done Comments Zoster Vaccines (1 of 2) 1993 *ADVANCE [...] ASSESSMENT COMPLETED IN PAST YEAR FOR COPD 04/25/2023 04/25/2022 COLONOSCOPY-EVERY 3 YRS AGES 18-100 08/28/2024 08/28/2021, [...] not elsewhere classified documented in this encounter Advance Directives Documents on File Type Date Recorded 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
--- OUTSIDE RECORDS SUMMARY | 2023-06-07 07:42 | External Medical Summary | Summary of Care ---
Author Name Unknown Organization [place] [address] Care Team Providers Care Seed Corn Production Manager Name Role Phone Yariel Cardoza MD Primary Care Provide r Reason for Visit * Reason Onset Date Comments [facility]: Maintenance 04/30/2022 Encounter Details Date Type Department Care Team Description 04/30/2022 Telephone [facility], [facility] [address] [place] [address] Corrina Layne RN [address] [facility] [place] [address] [facility]: Maintenance Allergies Active Allergy Reactions Severity Noted Date Comments Adhesive Tape 06/29/2003 Sensitive to Naproxen Hives 05/28/2015 Ivp Dye Hives 08/20/2000 Latex Other (Please comment) 01/05/2015 Contact rash Ibuprofen Rash 01/05/2015 documented as of this encounter (statuses as of 04/30/2022) Medications Medication Sig Dispensed Refills Start Date [...] FOR DIZZINESS/VERTIGO 10 Tab 0 06/06/2021 Active Losartan Potassium 50 MG Oral Tablet (Cozaar)Indications: HTN, goal below 140/90 Take 1 Tab by [...] 09/27/2021 Active Atenolol 25 MG Oral Tablet (Tenormin)Indication [...] bedtime. For 5 days. 0 Active Nystatin 423318 UNIT/ML Mouth/Throat SuspensionIndication s:Thrush Swish and swallow 5 mL in the morning AND 5 mL at noon AND 5 mL in the evening AND 5 mL before bedtime. For thrush.. 240 mL 1 04/16/2022 2 Active Nystatin 985479 UNIT/GM External Powder (Nystop)Indications: Candidal skin infection APPLY TOPICALLY TO AFFECTED AREA 3 TIMES A DAY. 60 g 1 04/16/2022 Active Furosemide 40 MG Oral Tablet (Lasix)Indications:B ilateral lower extremity edema Take by mouth 1 Tablet in the morning. As needed for swelling or fluid accumulation. 30 Tablet 0 04/26/2022 Active documented as of this encounter (statuses as of 04/30/2022) Active Problems Problem Noted Date Allergic rhinitis [...] as of this encounter (statuses as of 04/30/2022) Resolved Problems Problem Noted Date Resolved Date [...] as of this encounter (statuses as of 04/30/2022) Immunizations Name Administration Dates Next Due COVID-19 mRNA, LNP-s, No Pre serve, 2-Dose Series ([employer]) 09/13/2021,12/16/2020,11/25/2020 Pneumococcal Conjugate Vacc, 13 Valent (Prevnar) [...] encounter Miscellaneous Notes * Telephone Encounter - Romina Padilla [facility] Nurse Head - 04/30/2022 9:57 AM EDT Faxed Order to [facility] Faxed Notes to [facility] Faxed demographics to [facility] VIRA [place] Electronically signed by Romina Padilla [facility] Nurse Head at 04/30/2022 9:58 AM EDT * Telephone Encounter - Corrina Layne RN - 04/30/2022 9:22 AM EDT Patient with severe COPD. Would benefit from flutter valve to help clear secretions. Order placed. Scheduling-please send order for flutter valve to [facility]. Thank you, Corrina Layne RN 04/30/2022 9:23 AM documented in this encounter Plan of Treatment Upcoming Encounters Date Type Specialty Care Team Description 05/01/2022 [facility] [place] [place] [address] [facility] [address] 05/07/2022 [facility] Visit [facility] Corrina Layne, RN [address] [place] [address] 06/22/2022 Office Visit Family Medicine Yariel Cardoza MD [address] [place] [address] [place] [address] Scheduled Procedures Name Priority Associated Diagnoses Date/Ti [...] Documents on File Type Date Recorded 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
--- OUTSIDE RECORDS SUMMARY | 2023-06-07 07:42 | External Medical Summary | Summary of Care ---
Author Name Unknown Organization [place] [address] Care Team Providers Care Protective Signal Superintendent Name Role Phone Leanne Cardoza MD Primary Care Provide r Reason for Visit * Reason Comments eRx-Medication Refill Encounter Details Date Type Department Care Team Description 05/11/2022 Refill Family Medicine [address] [place] [phone] Leanne Cardoza MD [address] [place] [address] [place] [phone] Stenosis of right vertebral artery; TIA (transient ischemic attack) Allergies Active Allergy Reactions Severity Noted Date Comments Adhesive Tape 06/29/2003 Sensitive to Naproxen Hives 05/28/2015 Ivp Dye Hives 08/20/2000 Latex Other (Please comment) 01/05/2015 Contact rash Ibuprofen Rash 01/05/2015 documented as of this encounter (statuses as of 05/11/2022) Medications Medication Sig Dispensed Refills Start Date [...] NEEDED FOR DIZZINESS/VERTI GO 10 Tab 0 1 Active Losartan Potassium 50 MG Oral Tablet (Cozaar)Indications :HTN, goal below 140/90 Take 1 Tab by mouth daily. 30 Tab 5 1 Active Bisacodyl 5 MG Oral Tablet [...] needed for Nausea. 30 Tablet 0 1 Active Benzonatate 100 MG Oral Capsule (Tessalon Perles)Indications: Viral illness Take 1 Capsule by mouth 3 times a day as needed for Cough. 30 Capsule 1 1 Active Atenolol 25 MG Oral Tablet (Tenormin)Indicatio ns:HTN, goal below 140/90 TAKE 1 TABLET BY MOUTH EVERY DAY 90 Tablet 1 1 Active Zoster Vac Recomb Adjuvanted [...] PAIN, CRAMPING 360 Capsule 1 2 Active Additional Information Patient not taking. Reported on 04/16/2022 traMADol HCl 50 MG Oral Tablet (Ultram) 50 mg . 0 2 Active DM-guaiFENesin ER 30-600 MG Oral Tablet Extended Release 12 Hour Take by mouth 1 Tablet in the morning AND 1 Tablet before bedtime. For 5 days. 0 Active Nystatin 665321 UNIT/ML Mouth/Throat SuspensionIndicatio ns:Thrush Swish and swallow 5 mL in the morning AND 5 mL at noon AND 5 mL in the evening AND 5 mL before bedtime. For thrush.. 240 mL 1 2 05/16/20 22 Active Nystatin 725248 UNIT/GM External Powder (Nystop)Indications :Candidal skin infection [...] EVERY DAY 90 Tablet 2 2 Active Clopidogrel Bisulfate 75 MG Oral Tablet (pLAVix)Indications :Stenosis of right vertebral artery,TIA (transient ischemic attack) TAKE 1 TABLET BY MOUTH EVERY DAY 90 Tablet 2 1 05/11/20 22 Discontinued documented as of this encounter (statuses as of 05/11/2022) Active Problems Problem Noted Date Acute right [...] as of this encounter (statuses as of 05/11/2022) Resolved Problems Problem Noted Date Resolved Date Pulmonary hypertension 05/07/2017 1 Impaired fasting glucose 03/15/2017 02/21/2 018 Thyroid nodule 09/05/2016 01/07/2017 ETD (eustachian [...] as of this encounter (statuses as of 05/11/2022) Immunizations Name Administration Dates Next Due COVID-19 mRNA, LNP-s, No Pre serve, 2-Dose Series (Ixchelsis) 09/13/2021,12/16/2020,11/25/2020 Pneumococcal Conjugate Vacc, 13 Valent (Prevnar) [...] Telephone Encounter - Jame Tavarez RPh - 05/11/2022 11:13 AM EDT Signed Prescriptions: Disp Refills Clopidogrel Bisulfate 75 MG Oral Tablet (p*90 Tab*2 Sig: TAKE 1 TABLET BY MOUTH EVERY DAYAuthorizing Provider: LEANNE CARDOZA User: JAME TAVAREZ-- documented in this encounter Plan of Treatment Upcoming Encounters Date Type Specialty Care Team Description 06/22/2022 Office Visit Family Medicine Leanne Cardoza MD [address] [place] [address] [place] [phone] Scheduled Procedures Name Priority Associated Diagnoses Date/Ti me COLONOSCOPY FLEXIBLE PROXIMAL DIAGNOSTIC Recall History of colon polyps Health Maintenance Due Date Last Done Comments Hepatitis C Screening 1963 Zoster Vaccines (1 [...] ASSESSMENT COMPLETED IN PAST YEAR FOR COPD 05/01/2023 05/01/2022 COLONOSCOPY-EVERY 3 YRS AGES 18-100 08/28/2024 08/28/2021, [...] as of this encounter Visit Diagnoses Diagnosis Stenosis of right vertebral artery TIA (transient ischemic attack) Unspecified transient cerebral ischemia documented in this encounter Advance Directives Documents on File Type Date Recorded 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
--- OUTSIDE RECORDS SUMMARY | 2023-06-07 07:42 | External Medical Summary | Summary of Care ---
Author Name Unknown Organization [place] [address] Care Team Providers Care Driver Trainee Name Role Phone Leanne Cardoza MD Primary Care Provide r Reason for Visit * Reason Comments eRx-Medication Refill Encounter Details Date Type Department Care Team Description 05/25/2022 Refill Family [address] [place] [phone] Leanne Cardoza MD [address] [place] [address] [place] [phone] HTN, goal below 140/90 Allergies Active Allergy Reactions Severity Noted Date Comments Adhesive Tape 06/29/2003 Sensitive to Naproxen Hives 05/28/2015 Ivp Dye Hives 08/20/2000 Latex Other (Please comment) 01/05/2015 Contact rash Ibuprofen Rash 01/05/2015 documented as of this encounter (statuses as of 05/25/2022) Medications Medication Sig Dispensed Refills Start Date [...] bedtime. For 5 days. 0 Active Nystatin 233766 UNIT/GM External Powder (Nystop)Indications :Candidal skin infection [...] EVERY DAY 90 Tablet 1 2 Active Atenolol 25 MG Oral Tablet (Tenormin)Indicatio ns:HTN, goal below 140/90 TAKE 1 TABLET BY MOUTH EVERY DAY 90 Tablet 1 1 05/25/20 22 Discontinued documented as of this encounter (statuses as of 05/25/2022) Active Problems Problem Noted Date Acute right [...] as of this encounter (statuses as of 05/25/2022) Resolved Problems Problem Noted Date Resolved Date [...] as of this encounter (statuses as of 05/25/2022) Immunizations Name Administration Dates Next Due COVID-19 mRNA, LNP-s, No Pre serve, 2-Dose Series (ChannelMeter) 09/13/2021,12/16/2020,11/25/2020 Pneumococcal Conjugate Vacc, 13 Valent (Prevnar) [...] Telephone Encounter - Rosio Darling RPh - 05/25/2022 9:23 AM EDT Signed Prescriptions: Disp Refills Atenolol 25 MG Oral Tablet (Tenormin) 90 Tab*1 Sig: TAKE 1 TABLET BY MOUTH EVERY DAYAuthorizing Provider: LEANNE CARDOZA User: ROSIO DARLING---- documented in this encounter Plan of Treatment Upcoming Encounters Date Type Specialty Care Team Description 05/31/2022 Home Visit [facility] Corrina Layne RN [address] [place] [address] 06/22/2022 Office Visit Family Medicine Leanne Cardoza MD [address] [place] [address] [place] [id number] Scheduled Procedures Name Priority Associated Diagnoses Date/Ti [...] Documents on File Type Date Recorded Patient Oral And Maxillofacial Surgery Expl 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 Directive Advanced Directive Advanced Directive Care Teams Driver Trainee Relationship Specialty Start Date End Date Leanne Cardoza MD [address] [place] [address] [place] [phone] PCP - General Family Medicine 12/01/18 documented as of this encounter
--- OUTSIDE RECORDS SUMMARY | 2023-06-07 07:42 | External Medical Summary | Summary of Care ---
Author Name Unknown Organization [place] [address] Care Team Providers Care Weekend Anchor Name Role Phone Yariel Cardoza MD Primary Care Provide r Reason for Visit * Reason Comments [facility]: Enrollment [facility]: Transition of Care Encounter Details Date Type Department Care Team Description 05/01/2022 Home Visit [facility] [place] [address] [facility] [place] [address] Magda Guy PA-C [address] [place] [address] COPD, severe (HCC)*; Dyslipidemia, goal LDL below 100; Gastro-esophageal reflux disease without esophagitis; Irritable bowel syndrome with constipation; Spinal stenosis of lumbar region without neurogenic claudication; Peripheral vascular disease (HCC); Schatzki's ring; Urinary, incontinence, stress female; Thyroid nodule; Acute right ankle pain; HTN, goal below 140/90 Allergies Active Allergy [...] 09/13/2021 Active Benzonatate 100 MG Oral Capsule (Tessalchay Hickey)Indications:V iral illness Take 1 Capsule by mouth [...] bedtime. For 5 days. 0 Active Nystatin 531501 UNIT/ML Mouth/Throat SuspensionIndication s:Thrush Swish and swallow 5 mL in the morning AND 5 mL at noon AND 5 mL in the evening AND 5 mL before bedtime. For thrush.. 240 mL 1 04/16/2022 Active Nystatin 494778 UNIT/GM External Powder (Nystop)Indications: Candidal skin infection [...] of 05/01/2022) Active Problems Problem Noted Date Acute right [...] mRNA, LNP-s, No Pre serve, 2-Dose Series ([email or web address]) 09/13/2021,12/16/2020,11/25/2020 Pneumococcal Conjugate Vacc, 13 Valent (Prevnar) [...] Sign Reading Time Taken Comments Blood Pressure 120/70 05/01/2022 1:57 PM EDT Pulse 70 05/01/2022 1:57 PM EDT Temperature - - Respiratory Rate - - Oxygen Saturation 93% 05/01/2022 1:57 PM EDT Inhaled Oxygen Concentration - - Weight - - Height - - Body Mass Index - - documented in this encounter Progress Notes * Magda Guy PA-C - 05/01/2022 1:16 PM EDT [facility] Provider Visit Date: 05/01/2022 Time: 1:16 PM HPI: Jayla Hayes is a 76 year old female seen in her home for a provider visit. [facility] enrollment for postacute hospitalization at [facility] 04/05-04/10/22 with dx of pneumonia. Pt went to the ED after having had a cough for 3 days, with SOB and increased oxygen demand. She was diagnosed with acute on chronic respiratory failure, COPD exacerbation and CAP. She received IV antibiotics, steroids and was discharged home on 04/10. She completed a course of Augmentin. Patient was also instructed to use oxygen @ 2L for activity and at HS. She also had a recent ED visit for right ankle pain. States that she awoke with the pain. Pain is on the medial aspect of ankle. Denies trauma or fall. Xrays negative for fractures. US negative for DVT. Uric acid normal. She was seen by podiatry who placed her on a steroid, which did not help. Podiatry ordered a boot but it hasn't been approved by insurance yet. She is scheduled for CT scan of right ankle on 05/02/22. Since pt has been home from her COPD exacerbation she states that she has felt depressed because ofher ankle pain. She states that yesterday she had some trouble breathing because of the humidity. Today she has felt good. She has had "very little" coughing. She continues to use oxygen with exertion and at night 2lpm. Current medical concerns: COPD, severe, dyslipidemia, goal LDL below 100, gastro-esophageal reflux disease without esophagitis, irritable bowel syndrome with constipation, spinal stenosis of lumbar region without neurogenic claudication, peripheral vascular disease, schatzki's ring, urinary, inconti nence, stress female,thyroid nodule, acute right ankle pain, HTN. ROS: Review of Systems Constitutional: Positive for activity change (decreased due to right ankle pain). HENT: Positive for rhinorrhea. Eyes: Positive for itching. Respiratory: Positive for cough and shortness of breath (during humid weather). Cardiovascular: Positive for leg swelling (left ankle). Musculoskeletal: Positive for arthralgias (right ankle), back pain and gait problem (due to right ankle pain). Psychiatric/Behavioral: Positive for dysphoric mood (because of ankle pain). All other systems reviewed and are negative. Physical Exam: BP 120/70 | Pulse 70 | SpO2 93% Physical Exam Constitutional: General: She is not in acute distress. Appearance: Normal appearance. She is not ill-appearing, toxic-appearing or diaphoretic. HENT: Head: Normocephalic and atraumatic. Right Ear: External ear normal. Left Ear: External ear normal. Nose: Nose normal. Mouth/Throat: Mouth: Mucous membranes are moist. Eyes: General: No scleral icterus. Right eye: No discharge. Left eye: No discharge. Extraocular Movements: Extraocular movements intact. Conjunctiva/sclera: Conjunctivae normal. Pupils: Pupils are equal, round, and reactive to light. Cardiovascular: Rate and Rhythm: Normal rate and regular rhythm. Pulses: Normal pulses. Heart sounds: Normal heart sounds. No murmur heard. No friction rub. No gallop. Pulmonary: Effort: Pulmonary effort is normal. No respiratory distress. Breath sounds: Normal breath sounds. No stridor. No wheezing, rhonchi or rales. Chest: Chest wall: No tenderness. Abdominal: General: Abdomen is flat. Bowel sounds are normal. There is no distension. Palpations: Abdomen is soft. There is no mass. Tenderness: There is no abdominal tenderness. There is no right CVA tenderness, left CVA tendernessor guarding. Musculoskeletal: General: Swelling (right ankle) and tenderness (medial ankle) present. No deformity or signs of injury. Cervical back: Neck supple. Right lower leg: No edema. Left lower leg: No edema. Skin: General: Skin is warm and dry. Capillary Refill: Capillary refill takes less than 2 seconds. Coloration: Skin is not jaundiced or pale. Findings: No bruising, erythema, lesion or rash. Neurological: Mental Status: She is alert and oriented to person, place, and time. Cranial Nerves: No cranial nerve deficit. Sensory: No sensory deficit. Motor: No weakness. Coordination: Coordination normal. Gait: Gait normal. Deep Tendon Reflexes: Reflexes normal. Psychiatric: Mood and Affect: Mood normal. Behavior: Behavior normal. Thought Content: Thought content normal. Judgment: Judgment normal. Assessment/Plan: 1. COPD, severe (HCC) - Stable on Anora, Pulmicort, Duonebs and Proventil rescue inhaler. - On oxygen 2lpm during exertion and at rest 2. Dyslipidemia, goal LDL below 100 - Stable on Atrovastatin 40mg QOD 3. Gastro-esophageal reflux disease without esophagitis - Stable on Omeprazole 4. Irritable bowel syndrome with constipation - Dicyclomine as needed 5. Spinal stenosis of lumbar region without neurogenic claudication - On Amitriptyline, tylenol 6. Peripheral vascular disease (HCC) - Stable 7. Schatzki's ring - Stable 8. Urinary, incontinence, stress female - Wears Depends 9. Thyroid nodule - Followed by endocrinology 10. Acute right ankle pain - Followed by Podiatry. Has CT scan scheduled for tomorrow. - Boot ordered, awaiting insurance approval. - Continue tylenol, elevation, ice for pain. 11. HTN - Stable on Atenolol 25mg daily, HTCZ 25mg, Potassium 10meq daily, Losartan 25mg daily Home Interventions Provided: Reinforced current Plan of Care, including self-management and medication regimen Magda Guy PA-C documented in this encounter Plan of Treatment Upcoming Encounters Date Type Specialty Care Team Description 05/07/2022 Home Visit [facility] Corrina Layne RN [address] [facility] [place] [id number] 06/22/2022 Office Visit Family Medicine Yariel Cardoza MD [address] [place] [address] [place] [phone] Scheduled Procedures Name Priority Associated Diagnoses Date/Ti [...] Primary Chronic airway obstruction, not elsewhere classified Dyslipidemia, goal LDL below 100 Other and unspecified hyperlipidemia Gastro-esophageal reflux disease without esophagitis Esophageal reflux Irritable bowel syndrome with constipation Irritable bowel syndrome Spinal stenosis of lumbar region without neurogenic claudication Spinal stenosis, lumbar region, without neurogenic claudication Peripheral vascular disease (HCC) Peripheral vascular disease, unspecified Schatzki's ring Congenital tracheoesophageal fistula, esophageal atresia and stenosis Urinary, incontinence, stress female Female stress incontinence Thyroid nodule Nontoxic uninodular goiter Acute right ankle pain HTN, goal below 140/90 Unspecified essential hypertension documented in this encounter Advance Directives Documents on File Type Date Recorded Patient Animal Technician Expl 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 Directive Advanced Directive Advanced Directive Care Teams Weekend Anchor Relationship Specialty Start Date End Date Yariel Cardoza MD [address] [place] [address] [place] [address] PCP - General Family Medicine 12/01/18 documented as of this encounter
--- OUTSIDE RECORDS SUMMARY | 2023-06-07 07:42 | External Medical Summary | Summary of Care ---
Author Name Unknown Organization [place] [address] Care Team Providers Care Packing Inspector Name Role Phone Leanne Cardoza MD Primary Care Provide r Reason for Visit * Reason Comments eRx-Medication Refill Encounter Details Date Type Department Care Team Description 05/01/2022 Refill Family [address] [phone] Leanne Cardoza MD [address] [place] [address] [place] [phone] Allergies Active Allergy Reactions Severity Noted Date Comments Adhesive Tape 06/29/2003 Sensitive to Naproxen Hives 05/28/2015 Ivp Dye Hives 08/20/2000 Latex Other (Please comment) 01/05/2015 Contact rash Ibuprofen Rash 01/05/2015 documented as of this encounter (statuses as of 05/02/2022) Medications Medication Sig Dispensed Refills Start Date [...] MOUTH EVERY DAY 90 Tablet 2 1 Active Ondansetron 4 MG Oral Tablet Disintegrating [...] bedtime. For 5 days. 0 Active Nystatin 819866 UNIT/ML Mouth/Throat SuspensionIndicatio ns:Thrush Swish and swallow 5 mL in the morning AND 5 mL at noon AND 5 mL in the evening AND 5 mL before bedtime. For thrush.. 240 mL 1 2 05/16/20 22 Active Nystatin 145982 UNIT/GM External Powder (Nystop)Indications :Candidal skin infection [...] THE MORNING 90 Tablet 2 2 Active hydroCHLOROthiazide 25 MG Oral Tablet (Hydrodiuril) Take by mouth 1 Tablet in the morning. 90 Tablet 0 2 05/02/20 22 Discontinued documented as of this encounter (statuses as of 05/02/2022) Active Problems Problem Noted Date Acute right [...] as of this encounter (statuses as of 05/02/2022) Resolved Problems Problem Noted Date Resolved Date [...] as of this encounter (statuses as of 05/02/2022) Immunizations Name Administration Dates Next Due COVID-19 mRNA, LNP-s, No Pre serve, 2-Dose Series (LiquidSpace) 09/13/2021,12/16/2020,11/25/2020 Pneumococcal Conjugate Vacc, 13 Valent (Prevnar) [...] encounter Miscellaneous Notes * Telephone Encounter - Vick James RPh - 05/02/2022 10:03 AM EDT Signed Prescriptions: Disp Refills hydroCHLOROthiazide 25 MG Oral Tablet (Hyd*90 Tab*2 Sig: TAKE 1 TABLET BY MOUTH EVERY DAY IN THE MORNINGAuthorizing Provider: LEANNE CARDOZA User:VICK JAMES documented in this encounter Plan of Treatment Upcoming Encounters Date Type Specialty Care Team Description 05/07/2022 Home Visit [facility] Corrina Layne RN [address] [place] [address] 06/22/2022 Office Visit Family Medicine Leanne Cardoza MD [address] [place] [address] [place] [id number] Scheduled Procedures Name Priority Associated Diagnoses Date/Ti [...] Documents on File Type Date Recorded Patient Social Media Specialist Expl 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 Directive Advanced Directive Advanced Directive Care Teams Packing Inspector Relationship Specialty Start Date End Date Leanne Cardoza MD [address] [place] [address] [place] [phone] PCP - General Family Medicine 12/01/18 documented as of this encounter
--- OUTSIDE RECORDS SUMMARY | 2023-06-07 07:42 | External Medical Summary | Summary of Care ---
Author Name Unknown Organization [place] [address] Care Team Providers Care Control Analyst Name Role Phone Yariel Cadroza MD Primary Care Provide r Reason for Visit * Reason Onset Date Comments Information 05/21/2022 Encounter Details Date Type Department Care Team Description 05/21/2022 Telephone [facility] [place] [address] [facility] [address] [facility] [address] [place] [address] Information Allergies Active Allergy Reactions Severity Noted Date Comments Adhesive Tape 06/29/2003 Sensitive to Naproxen Hives 05/28/2015 Ivp Dye Hives 08/20/2000 Latex Other (Please comment) 01/05/2015 Contact rash Ibuprofen Rash 01/05/2015 documented as of this encounter (statuses as of 05/21/2022) Medications Medication Sig Dispensed Refills Start Date [...] bedtime. For 5 days. 0 Active Nystatin 451057 UNIT/GM External Powder (Nystop)Indications: Candidal skin infection [...] EVERY DAY 90 Tablet 2 05/11/2022 Active documented as of this encounter (statuses as of 05/21/2022) Active Problems Problem Noted Date Acute right [...] as of this encounter (statuses as of 05/21/2022) Resolved Problems Problem Noted Date Resolved Date [...] as of this encounter (statuses as of 05/21/2022) Immunizations Name Administration Dates Next Due COVID-19 mRNA, LNP-s, No Pre serve, 2-Dose Series (InfraReDx) 09/13/2021,12/16/2020,11/25/2020 Pneumococcal Conjugate Vacc, 13 Valent (Prevnar) [...] Miscellaneous Notes * Telephone Encounter - VIRA West - 05/21/2022 12:53 PM EDT Inbound call Pt asking if TIFFANIE/Xi can return her call at her earliest convenience, msg routed. 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
--- OUTSIDE RECORDS SUMMARY | 2023-06-07 07:42 | External Medical Summary | Summary of Care ---
Author Name Unknown Organization [place] [address] Care Team Providers Care Public Defender Name Role Phone Yariel Cardoza MD Primary Care Provide r Encounter Details Date Type Department Care Team Description 05/31/2022 Home Visit [facility], [facility] [address] [facility] [place] [address] Shahrzad Kaur RN [address] [place] [address] Allergies Active Allergy Reactions Severity Noted Date Comments Adhesive Tape 06/29/2003 Sensitive to Naproxen Hives 05/28/2015 Ivp Dye Hives 08/20/2000 Latex Other (Please comment) 01/05/2015 Contact rash Ibuprofen Rash 01/05/2015 documented as of this encounter (statuses as of 06/04/2022) Medications Medication Sig Dispensed Refills Start Date [...] bedtime. For 5 days. 0 Active Nystatin 213501 UNIT/GM External Powder (Nystop)Indications: Candidal skin infection [...] the morning. 90 Tablet 1 05/25/2022 Active documented as of this encounter (statuses as of 06/04/2022) Active Problems Problem Noted Date Acute right [...] as of this encounter (statuses as of 06/04/2022) Resolved Problems Problem Noted Date Resolved Date [...] as of this encounter (statuses as of 06/04/2022) Immunizations Name Administration Dates Next Due COVID-19 mRNA, LNP-s, No Pre serve, 2-Dose Series (Traklight) 09/13/2021,12/16/2020,11/25/2020 Pneumococcal Conjugate Vacc, 13 Valent (Prevnar) [...] Sign Reading Time Taken Comments Blood Pressure 134/82 05/31/2022 12:00 PM EDT Pulse 84 05/31/2022 12:00 PM EDT Temperature 37.2 C (99 F) 05/31/2022 12:00 PM EDT Respiratory Rate 18 05/31/2022 12:00 PM EDT Oxygen Saturation 92% 05/31/2022 12:00 PM EDT Inhaled Oxygen Concentration - - Weight - - Height - - Body Mass Index - - documented in this encounter Progress Notes * Shahrzad Kaur RN - 05/31/2022 5:59 PM EDT [facility] Metaphysician Visit Date: 05/31/2022 Time: 12:00 PM Name: Jayla Hayes : 1945 Current Concerns: Patient seen follow up-H/o severe COPD,VIRA, HTN, PVD, IBS, GERD, TIA, depression, obesity. Reports feeling good Continues with right ankle pain- Assisted patient apply right cam boot RLE VS wnl Lungs clear but diminished Sob with exertion Oxygen at 2l via n/c with activity and HS Mild ankle nonpitting edema Voiding without difficulty Bowels wnl- per report Appetite good Taking fluids well. Physical Exam: BP 134/82 (BP Site: Right Arm, BP Position: Sitting, BP Cuff Size: Regular) | Pulse 84 | Temp 37.2 C (99 F) (Tympanic) | Resp 18 | SpO2 92% Pain 0 Physical Exam Constitutional: Appearance: Normal appearance. Cardiovascular: Rate and Rhythm: Normal rate and regular rhythm. Pulses: Normal pulses. Heart sounds: Normal heart sounds. Pulmonary: Effort: Pulmonary effort is normal. Breath sounds: Normal breath sounds. Abdominal: General: Bowel sounds are normal. Palpations: Abdomen is soft. Musculoskeletal: General: Normal range of motion. Cervical back: Normal range of motion. Skin: General: Skin is warm and dry. Capillary Refill: Capillary refill takes 2 to 3 seconds. Neurological: General: No focal deficit present. Mental Status: She is alert and oriented to person, place, and time. Psychiatric: Mood and Affect: Mood normal. Behavior: Behavior normal. Problems/Symptoms: Review of Systems Constitutional: Negative. HENT: Negative. Eyes: Negative. Respiratory: Positive for shortness of breath. Cardiovascular: Negative. Gastrointestinal: Negative. Endocrine: Negative. Genitourinary: Negative. Musculoskeletal: Negative. Skin: Negative. Allergic/Immunologic: Negative. Neurological: Negative. Hematological: Negative. Psychiatric/Behavioral: Negative. Medication Reconciliation: (See medication list) Does patient take medications as ordered: Yes Patient Well Being: PHQ2/9: No questionnaires available. Within normal limits [facility]-10 Completed this Visit: No. Routine visit Advanced Care Planning: Living Will. Patient's Goals of Care: 1. Stay out of the hospital 2. to spend time with family 3.get GI sxs under better control-IBS Reinforcement/Education: Educated on home safety: Create a [...] -Avoid triggers -Clean inhalers once a week Treatment/Plan: Continue medications as prescribed Keep all upcoming MD appointments Fall precautions Nebulizer treatments as prescribed Oxygen at 2L via n/c with activity and HS APAP prn pain. RN CM follow up in 4 weeks Home Interventions Provided: Reinforced current Plan of Care, including self-management and medication regimen Patient's 'Red Flags': 1. Swelling, redness of right ankle/foot/leg 2. Increased cough, wheezing, sob not relived by nebulizer treatment 3. Fever >100.4 Patient Needs to Remember: Call [facility] with any medical concerns/ red flags Referrals Needed: n/a Follow Up: Is there cellular connectivity/connectivity in the home? No Does the patient have internet in the home? No Patient encouraged to call the intake phone number for all urgent but not emergent issues. Is the patient new to [facility] within the last 30 days? No, Assess appropriateness for upcoming telehealth visits. Cancel telehealth visits & schedule home visit with care steamblaster(s)as indicated. Provider is in agreement with Plan of Care: Yes Scheduled to follow up with patient in 4 weeks. Shahrzad Keith RN 05/31/2022 12:00 PM documented in this encounter Plan of Treatment Upcoming Encounters Date Type Specialty Care Team Description 06/22/2022 Office Visit Family Medicine Yariel Cardoza MD [address] [place] [address] [place] [id number] Scheduled Procedures Name Priority Associated Diagnoses Date/Ti [...] Documents on File Type Date Recorded Patient Flight Communications Operator Expl 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 Directive Advanced Directive Advanced Directive Care Teams Public Defender Relationship Specialty Start Date End Date Yariel Cardoza MD [address] [place] [address] [place] [id number] PCP - General Family Medicine 12/01/18 documented as of this encounter"
--- OUTSIDE RECORDS SUMMARY | 2023-06-07 07:42 | External Medical Summary | Summary of Care ---
Author Name Unknown Organization [place] [address] Care Team Providers Care Head Housekeeper Name Role Phone Yariel Cardoza MD Primary Care Provide r Reason for Visit * Reason Onset Date Comments [facility]: Maintenance 04/30/2022 Encounter Details Date Type Department Care Team Description 04/30/2022 Telephone [facility] [address] [place] [address] Corrina Layne RN 132 [facility] [place] [address] [facility]: Maintenance Allergies Active Allergy [...] bedtime. For 5 days. 0 Active Nystatin 574856 UNIT/ML Mouth/Throat SuspensionIndication s:Thrush Swish and swallow 5 mL in the morning AND 5 mL at noon AND 5 mL in the evening AND 5 mL before bedtime. For thrush.. 240 mL 1 04/16/2022 2 Active Nystatin 682538 UNIT/GM External Powder (Nystop)Indications: Candidal skin infection [...] mRNA, LNP-s, No Pre serve, 2-Dose Series (Content Circles) 09/13/2021,12/16/2020,11/25/2020 Pneumococcal Conjugate Vacc, 13 Valent (Prevnar) [...] Scheduling-please send order for flutter valve to [facility]. Thank you, Corrina Layne RN 04/30/2022 9:23 AM documented in this encounter Plan of Treatment Upcoming Encounters Date Type Specialty Care Team Description 05/01/2022 Home Visit [facility] Magda Guy PA-C [address] [place] [address] 05/07/2022 Home Visit [facility] Corrina Layne RN 132 [facility] [place] [address] 06/22/2022 Office Visit Family Medicine SonyYariel enriquez MD [address] [place] [address] [place] [address] Scheduled Procedures Name Priority [...] Documents on File Type Date Recorded Patient Director Internal Control Expl 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 Advanced Directive Advanced Directive Care Teams Head Housekeeper Relationship Specialty Start Date End Date Yariel Cardoza MD [address] [place] [address] [place] [phone] PCP - General Family Medicine 12/01/18 documented as of this encounter
--- OUTSIDE RECORDS SUMMARY | 2023-06-07 07:42 | External Medical Summary | Summary of Care ---
Author Name Unknown Organization [place] [address] Care Team Providers Care Assistant Curator Name Role Phone Yariel Cardoza MD Primary Care Provide r Reason for Visit * Reason Comments eRx-Medication Refill Encounter Details Date Type Department Care Team Description 05/25/[address] [place] [address] Josie Ryan PA-C [address] [place] [address] [place] [phone] eRx-Medication Refill Allergies Active Allergy Reactions Severity Noted [...] bedtime. For 5 days. 0 Active Nystatin 094380 UNIT/GM External Powder (Nystop)Indications :Candidal skin infection [...] the morning. 90 Tablet 1 05/25/2022 Active Losartan Potassium 50 MG Oral Tablet (Cozaar)Indications :HTN, goal below 140/90 Take 1 Tab by mouth daily. 30 Tab 5 06/20/2021 05/25/20 22 Discontinu ed(Refill) documented as of this [...] mRNA, LNP-s, No Pre serve, 2-Dose Series ([place]) 09/13/2021,12/16/2020,11/25/2020 Pneumococcal Conjugate Vacc, 13 Valent (Prevnar) [...] Telephone Encounter - Yariel Cardoza MD - 05/25/2022 11:51 AM EDT Refilled 50 mg * Telephone Encounter - Antonio Lyles [facility] - 05/25/2022 9:59 AM EDT Refused Prescriptions: Disp Refills Losartan Potassium 25 MG Oral Tablet (Coza*90 Tab*3 Sig: TAKE 1 TABLET BY MOUTH EVERY DAY Refused By: ANTONIO LYLES Reason for Refusal: Dose needs clarification * Telephone Encounter - Antonio Lyles [facility] - 05/25/2022 9:54 AM EDT Please review refill request for Losartan Dose was changed to 50mg 06/20/21 Patient discharged from [facility] on same dosage Per adherence, pharmacy has been filling the old order for 25mg daily Please approve appropriate dosage. Thank You, Antonio Lyles [facility] Pharmacist Telepharmacy [phone] 05/25/2022, 9:59 AM documented in this encounter Plan of Treatment Upcoming Encounters Date Type Specialty Care Team Description 05/31/2022 Home Visit [facility] Corrina Layne, RN 132 [facility] [place] [address] 06/22/2022 Office Visit Family Medicine Yariel Cardoza MD [address] [place] [address] [place] [phone] Scheduled Procedures Name Priority Associated Diagnoses Date/Ti [...] Documents on File Type Date Recorded Patient Insurance Healthcare Consultant Expl 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 Directive Advanced Directive Advanced Directive Care Teams Assistant Curator Relationship Specialty Start Date End Date Yariel Cardoza MD [address] [place] [address] [place] [phone] PCP - General Family Medicine 12/01/18 documented as of this encounter
--- OUTSIDE RECORDS SUMMARY | 2023-06-07 07:43 | External Medical Summary | Summary of Care ---
Author Name Unknown Organization [place] [address] Care Team Providers Care Mechanical Manager Name Role Phone Yariel Cardoza MD Primary Care Provide r Reason for Visit * Reason Onset Date Comments [facility]: Engagement 04/17/2022 Encounter Details Date Type Department Care Team Description 04/17/2022 Telephone [facility], [facility] [address] [place] [address] [facility], Nurse [facility] [address] [place] [address] [facility]: Engagement Allergies Active Allergy Reactions Severity Noted Date Comments Adhesive Tape 06/29/2003 Sensitive to Naproxen Hives 05/28/2015 Ivp Dye Hives 08/20/2000 Latex Other (Please comment) 01/05/2015 Contact rash Ibuprofen Rash 01/05/2015 documented as of this encounter (statuses as of 04/17/2022) Medications Medication Sig Dispensed Refills Start Date [...] Tablet (Ultram) 50 mg . 0 04/01/2022 Acti ve Furosemide 40 MG Oral Tablet (Lasix)Indications:B ilateral lower extremity edema Take by mouth 1 Tablet in the morning. As needed for swelling or fluid accumulation. 30 Tablet 0 04/02/2022 Active DM-guaiFENesin ER 30-600 MG Oral Tablet Extended Release 12 Hour Take by mouth 1 Tablet in the morning AND 1 Tablet before bedtime. For 5 days. 0 Active Nystatin 945680 UNIT/ML Mouth/Throat SuspensionIndication s:Thrush Swish and swallow 5 mL in the morning AND 5 mL at noon AND 5 mL in the evening AND 5 mL before bedtime. For thrush.. 240 mL 1 04/16/2022 Active Nystatin 092794 UNIT/GM External Powder (Nystop)Indications: Candidal skin infection APPLY TOPICALLY TO AFFECTED AREA 3 TIMES A DAY. 60 g 1 04/16/2022 Active documented as of this encounter (statuses as of 04/17/2022) Active Problems Problem Noted Date Allergic rhinitis [...] as of this encounter (statuses as of 04/17/2022) Resolved Problems Problem Noted Date Resolved Date [...] as of this encounter (statuses as of 04/17/2022) Immunizations Name Administration Dates Next Due COVID-19 mRNA, LNP-s, No Pre serve, 2-Dose Series (Tactiga) 09/13/2021,12/16/2020,11/25/2020 Pneumococcal Conjugate Vacc, 13 Valent (Prevnar) [...] encounter Miscellaneous Notes * Telephone Encounter - Magda Lenore Singer, KRISTIAN - 04/17/2022 11:45 AM EDT Jayla Hayes was referred as a potential candidate for enrollment for [facility]. A review of this chart was completed and Jayla meets criteria for [facility]. Recently in [facility] discharged on 04/10/22 Jump to Episodes of Care to create Episode and document smartforms. [facility] Enrollment Form Screening: Referral Source: Case Management Sap Bi Architect Name: Chanelle Lam Primary Reason for Referral (Select most relevant): Multiple chronic comorbid conditions Engagement: Engagement Attempt 1: Unable to contact Unable to leave message 04/18 Deborah Matias at 330p 04/26 230p Magda Guy If dates still available. Primary nurse Sandrine Layne Engagement Attempt 2: No data was found Home Information: No data was found Advance Care Planning (ACP): No data was found Has Living Will or Advance Directive: No data was found Anticipated Sub-Program: Focused Care Management (3-9 months) Confirmation of Sub-Program Type (by care team assembly line machine operator): No data was found Handoff Information: Current care team notified via: No data was found Current telemonitoring equipment: No data was found documented in this encounter Plan of Treatment Upcoming Encounters Date Type Specialty Care Team Description 04/18/2022 Scheduled Telephone [facility] Policy [facility], [facility] [place] [address] [facility] [place] [address] 06/22/2022 Office Visit Family Medicine Sony, Yariel Perea MD [address] [place] [address] [place] [address] Scheduled Procedures Name Priority [...] 2022 06/20/2021, 08/12/2020, 08/12/2020, Additional history exists Dexa Scan 08/17/2022 08/17/2015 GFR - Renal Function 11/28/2022 11/28/2021, 06/06/2021, 12/26/2020, Additional history exists Prediabetes-Yearly Hemoglobin A1c 11/28/2022 11/28/2021, 11/28/2021, 12/26/2020, Additional history exists O2 ASSESSMENT COMPLETED IN PAST YEAR FOR COPD 04/16/2023 04/16/2022 COLONOSCOPY-EVERY 3 YRS AGES 18-100 08/28/2024 08/28/2021, [...] Documents on File Type Date Recorded Patient Legal Support Manager Expl 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 Directive Advanced Directive Advanced Directive Care Teams Mechanical Manager Relationship Specialty Start Date End Date Yariel Cardoza MD [address] [place] [address] [place] [address] PCP - General Family Medicine 12/01/18 documented as of this encounter
--- OUTSIDE RECORDS SUMMARY | 2023-06-07 07:43 | External Medical Summary | Summary of Care ---
Author Name Unknown Organization [place] [address] Care Team Providers Care Harness Mender Name Role Phone Leanne Cardoza MD Primary Care Provide r Reason for Visit * Reason Onset Date Comments Medication Refill 04/26/2022 Encounter Details Date Type Department Care Team Description 04/26/2022 Refill Family Medicine [address] [place] [address] Leanne Cardoza MD [address] [place] [address] [place] [address] Bilateral lower extremity edema Allergies Active Allergy Reactions Severity Noted Date Comments Adhesive Tape 06/29/2003 Sensitive to Naproxen Hives 05/28/2015 Ivp Dye Hives 08/20/2000 Latex Other (Please comment) 01/05/2015 Contact rash Ibuprofen Rash 01/05/2015 documented as of this encounter (statuses as of 04/26/2022) Medications Medication Sig Dispensed Refills Start Date [...] bedtime. For 5 days. 0 Active Nystatin 154072 UNIT/ML Mouth/Throat SuspensionIndicatio ns:Thrush Swish and swallow 5 mL in the morning AND 5 mL at noon AND 5 mL in the evening AND 5 mL before bedtime. For thrush.. 240 mL 1 04/16/2022 05/16/20 22 Active Nystatin 906490 UNIT/GM External Powder (Nystop)Indications :Candidal skin infection APPLY TOPICALLY TO AFFECTED AREA 3 TIMES A DAY. 60 g 1 04/16/2022 Active Furosemide 40 MG Oral Tablet (Lasix)Indications: Bilateral lower extremity edema Take by mouth 1 Tablet in the morning. As needed for swelling or fluid accumulation. 30 Tablet 0 04/26/2022 Active Furosemide 40 MG Oral Tablet (Lasix)Indications: Bilateral lower extremity edema Take by mouth 1 Tablet in the morning. As needed for swelling or fluid accumulation. 30 Tablet 0 04/02/2022 04/26/20 22 Discontinu ed(Refill) documented as of this encounter (statuses as of 04/26/2022) Active Problems Problem Noted Date Allergic rhinitis [...] as of this encounter (statuses as of 04/26/2022) Resolved Problems Problem Noted Date Resolved Date [...] as of this encounter (statuses as of 04/26/2022) Immunizations Name Administration Dates Next Due COVID-19 mRNA, LNP-s, No Pre serve, 2-Dose Series (My Top 10) 09/13/2021,12/16/2020,11/25/2020 Pneumococcal Conjugate Vacc, 13 Valent (Prevnar) [...] Telephone Encounter - Leanne Cardoza MD - 04/26/2022 10:14 AM EDT Signed Prescriptions: Disp Refills Furosemide 40 MG Oral Tablet (Lasix) 30 Tab*0 Sig: Take by mouth 1 Tablet in the morning. As needed for swelling or fluid accumulation. Authorizing Provider: LEANNE CARDOZA * Telephone Encounter - Courtney Montiel LPN - 04/26/2022 10:09 AM EDT Pending Prescriptions: Disp Refills Furosemide 40 MG Oral Tablet (Lasix) 30 Tab*0 Sig: Take by mouth 1 Tablet in the morning. As needed for swelling or fluid accumulation. * Telephone Encounter - Ileana Zaldivar Ankita, VIRA - 04/26/2022 10:00 AM EDT Did you pend patient's preferred pharmacy and medication before forwarding?yes Pharmacy: [id number] [id number] [facility] Pending Prescriptions: Disp Refills Furosemide 40 MG Oral Tablet (Lasix) 30 Tab*0 Sig: Take by mouth 1 Tablet in the morning. As needed for swelling or fluid accumulation. Last Visit: 04/16/2022 (in office), Visit date not found (telemedicine) Next Visit: 06/22/2022 If no future appointments scheduled, and last appointment is greater than a year ago, please schedule patient for a follow-up appointment Last date the medication was ordered: 04/02/2022 Is this request for a controlled substance?No [...] Magda Guy PA-C [address] [place] [address] 05/07/2022 Home Visit [facility] Corrina Layne RN 132 [facility] [place] [address] 06/22/2022 Office Visit Family Medicine Leanne Cardoza MD [address] [place] [address] [place] [phone] Scheduled Procedures Name Priority Associated Diagnoses Date/Ti [...] as of this encounter Visit Diagnoses Diagnosis Bilateral lower extremity edema Edema documented in this encounter Advance Directives Documents on File Type Date Recorded Patient Wood Router Hand Expl 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 Directive Advanced Directive Advanced Directive Care Teams Harness Mender Relationship Specialty Start Date End Date Leanne Cardoza MD [address] [place] [address] [place] [address] PCP - General Family Medicine 12/01/18 documented as of this encounter
--- OUTSIDE RECORDS SUMMARY | 2023-06-07 07:43 | External Medical Summary | Summary of Care ---
Author Name Unknown Organization [place] [address] Care Team Providers Care House Detective Name Role Phone Yariel Cardoza MD Primary Care Provide r Encounter Details Date Type Department Care Team Description 04/17/2022 Secret Code ExpertDouble Bottom [facility] [address] [place] [address] Ashley Lam, SELENE [address] [place] [address] COPD, severe (HCC)* Allergies Active Allergy Reactions [...] bedtime. For 5 days. 0 Active Nystatin 414088 UNIT/ML Mouth/Throat SuspensionIndication s:Thrush Swish and swallow 5 mL in the morning AND 5 mL at noon AND 5 mL in the evening AND 5 mL before bedtime. For thrush.. 240 mL 1 04/16/2022 Active Nystatin 989011 UNIT/GM External Powder (Nystop)Indications: Candidal skin infection [...] mRNA, LNP-s, No Pre serve, 2-Dose Series ([employer]) 09/13/2021,12/16/2020,11/25/2020 Pneumococcal Conjugate Vacc, 13 Valent (Prevnar) [...] as of this encounter Progress Notes * Ashley Lam RN - 04/17/2022 11:55 AM EDT Case Management Assessment-la, spoke with patient, follow up compleed, s/p hospitalization to [facility] on 04/05/22 with cough & SOB, patient treated for COPD exacerbation, sepsis & Pneumonia, started on IVF, IVAB, steroids, neb treatments, discharged home on 04/10/22 HX: COPD, VIRA, HTN, hx of TIA Is this call for a hospital, snf or rehab facility discharge to home? No, follow up S: Reports: Patient denies increased SOB, says she continues to cough, but it is slowly improving Using O2 at 2 liters at night & during the day with exertion Denies angina, has some swelling to her right ankle Has a good appetite, denies urinary complaints, had a loose stool this morning, will hold the Miralax Having pain to her right ankle, to be seen by podiatry on on 04/19/22 No skin issues Independent with ambulation & ADL's PCP wrote for [facility] referral, called intake & made them aware O: Phone visit for post hospitalization follow up Medications: takes all medications as prescribed. Does this patient qualify for an annual wellness visit? No A: Patient Centered Prioritized Goals: recovers from Pneumonia without complications, stays safe in her home prevent readmission Exacerbations have been prevented, minimized or reduced in severity. Co-morbid conditions identified and managed. Patient/ caregiver demonstrates adherence to treatment plan. Identified Barriers: No identified barriers FUNCTIONAL STATUS: (Definition - assess ability to patient to manage their own care, includes evaluation of activities of daily living, and instrumental activities of daily living, and cognitive abilities status) ADL'S - Needs Assistance With: N/A as pt is independent IADL'S - Needs Assistance With: Grocery Shopping and Routine Housework Cognitive and Mental Health: denies problems, alert and oriented x 3 and able to communicate, understand instructions, process information. P: Secret Code Expert Interventions: Called [facility] intake regarding PCP referral COPD: Pt instructed to: -Call with increased SOB, wheezing, chest tightness, increased cough, increased sputum with change in color or consistency and fever. -Wash hands often -Drink plenty of fluids -Use inhalers as directed, do not stop or skip doses -Avoid stress -Rest when tired or SOB -Avoid triggers -Clean inhalers once a week Reinforced sodium restriction Reinforced safety education / fall prevention Reinforced medication regimen - timing / dosing / purpose PCP Notified of enrollment in CM/HM program: Yes SNP Member? No Re-evaluation of plan of care and progress towards goals achievement: Plan to call patient next week to reassess and update plan of care, instructed to call Case Manageror Primary Care Provider with change in symptoms or as needed before next follow-up, verbalizes understanding and agrees with plan. Ashley Lam RN Outpatient Secret Code Expert documented in this encounter Plan of Treatment Upcoming Encounters Date Type Specialty Care Team Description 04/18/2022 Scheduled Telephone [facility] [place] [address] 06/22/2022 Office Visit Family Medicine Yariel Cardoza MD [address] [place] [address] [place] [address] Scheduled Procedures Name Priority [...] on File Type Date Recorded Patient Retail Manager In Training Expl 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 Directive Advanced Directive Advanced Directive Care Teams House Detective Relationship Specialty Start Date End Date Yariel Cardoza MD [address] [place] [address] [place] [address] PCP - General Family Medicine 12/01/18 documented as of this encounter
--- OUTSIDE RECORDS SUMMARY | 2023-06-07 07:43 | External Medical Summary | Summary of Care ---
Author Name Unknown Organization [place] [address] Care Team Providers Care Production Quality Manager Name Role Phone Yariel Cardoza MD Primary Care Provide r Encounter Details Date Type Department Care Team Description 04/01/2022 Result Scan Unspecified Department <No scans attached> [...] Information Patient not taking. Reported on 04/16/2022 documented as of this encounter (statuses as [...] mRNA, LNP-s, No Pre serve, 2-Dose Series ([employer]) 09/13/2021,12/16/2020,11/25/2020 Pneumococcal Conjugate Vacc, 13 Valent (Prevnar) [...] Team Description 04/18/2022 Scheduled Telephone [facility] Nursing Director, [facility] [address] [place] [address] 06/22/2022 Office Visit Family Medicine SonyYariel MD [address] [place] [address] [place] [id number] Scheduled Procedures Name Priority Associated Diagnoses Date/Ti [...] Procedure Name Priority Date/Time Associated Diagnosis Comments RADIOLOGY SCANNED RESULT 04/01/2022 RADIOLOGY SCANNED RESULT 04/01/2022 documented in this encounter Results * RADIOLOGY SCANNED RESULT (04/01/2022) Specimen Narrative * RADIOLOGY SCANNED RESULT (04/01/2022) Specimen Narrative documented in this encounter Advance Directives Documents on File Type Date Recorded Patient Yoke Presser Expl 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 Directive Advanced Directive Advanced Directive Care Teams Production Quality Manager Relationship Specialty Start Date End Date Yariel Cardoza MD [address] [place] [address] [place] [address] PCP - General Family Medicine 12/01/18 documented as of this encounter
--- OUTSIDE RECORDS SUMMARY | 2023-06-07 07:43 | External Medical Summary | Summary of Care ---
Author Name Unknown Organization [place] [address] Care Team Providers Care Slot Ambassador Name Role Phone Yariel Cardoza MD Primary Care Provide r Encounter Details Date Type Department Care Team Description 04/27/2022 Telephone Family Medicine [address] [address] Yariel Cardoza MD [address] [place] [address] [place] [address] Allergies Active Allergy Reactions Severity Noted Date Comments Adhesive Tape 06/29/2003 Sensitive to Naproxen Hives 05/28/2015 Ivp Dye Hives 08/20/2000 Latex Other (Please comment) 01/05/2015 Contact rash Ibuprofen Rash 01/05/2015 documented as of this encounter (statuses as of 04/27/2022) Medications Medication Sig Dispensed Refills Start Date [...] bedtime. For 5 days. 0 Active Nystatin 457158 UNIT/ML Mouth/Throat SuspensionIndication s:Thrush Swish and swallow 5 mL in the morning AND 5 mL at noon AND 5 mL in the evening AND 5 mL before bedtime. For thrush.. 240 mL 1 04/16/2022 2 Active Nystatin 669178 UNIT/GM External Powder (Nystop)Indications: Candidal skin infection APPLY TOPICALLY TO AFFECTED AREA 3 TIMES A DAY. 60 g 1 04/16/2022 Active Furosemide 40 MG Oral Tablet (Lasix)Indications:B ilateral lower extremity edema Take by mouth 1 Tablet in the morning. As needed for swelling or fluid accumulation. 30 Tablet 0 04/26/2022 Active documented as of this encounter (statuses as of 04/27/2022) Active Problems Problem Noted Date Allergic rhinitis [...] as of this encounter (statuses as of 04/27/2022) Resolved Problems Problem Noted Date Resolved Date [...] as of this encounter (statuses as of 04/27/2022) Immunizations Name Administration Dates Next Due COVID-19 mRNA, LNP-s, No Pre serve, 2-Dose Series (Cinario) 09/13/2021,12/16/2020,11/25/2020 Pneumococcal Conjugate Vacc, 13 Valent (Prevnar) [...] Telephone Encounter - Tata Mack LPN - 04/27/2022 4:26 PM EDT faxed * Telephone Encounter - Yariel Cardoza MD - 04/27/2022 4:05 PM EDT Signed * Telephone Encounter - Tata Mack LPN - 04/27/2022 2:22 PM EDT Medical exception form received for PACE for amitriptyline PACE cardholder ID: [id number] Form filled out and given to Dr. Cardoza for signature documented in this encounter Plan of Treatment Upcoming Encounters Date Type Specialty Care Team Description 05/01/2022 [facility] Visit [facility] Magda Guy PA-C [address] [facility] [place] [address] 05/07/2022 [facility] Visit [facility] Corrina Layne RN [address] [facility] [place] [address] 06/22/2022 Office Visit Family Medicine Yariel Cardoza MD [address] [place] [address] [place] [address] Scheduled Procedures Name Priority [...] Documents on File Type Date Recorded Patient Ground Support Agent Expl 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 Directive Advanced Directive Advanced Directive Care Teams Slot Ambassador Relationship Specialty Start Date End Date Yariel Cardoza MD [address] [place] [address] [place] [address] PCP - General Family Medicine 12/01/18 documented as of this encounter
--- OUTSIDE RECORDS SUMMARY | 2023-06-07 07:43 | External Medical Summary | Summary of Care ---
Author Name Unknown Organization [place] [address] Care Team Providers Care Spring Fitter Name Role Phone Yariel Cardoza MD Primary Care Provide r Reason for Visit * Reason Onset Date Comments [facility]: Engagement 04/18/2022 Encounter Details Date Type Department Care Team Description 04/18/2022 Scheduled Telephone [facility], [place] [address] [place] [address] Coordinator, [facility] [address] [place] [address] Allergies Active Allergy Reactions Severity Noted Date Comments Adhesive Tape 06/29/2003 Sensitive to Naproxen Hives 05/28/2015 Ivp Dye Hives 08/20/2000 Latex Other (Please comment) 01/05/2015 Contact rash Ibuprofen Rash 01/05/2015 documented as of this encounter (statuses as of 04/18/2022) Medications Medication Sig Dispensed Refills Start Date [...] bedtime. For 5 days. 0 Active Nystatin 117088 UNIT/ML Mouth/Throat SuspensionIndication s:Thrush Swish and swallow 5 mL in the morning AND 5 mL at noon AND 5 mL in the evening AND 5 mL before bedtime. For thrush.. 240 mL 1 04/16/2022 Active Nystatin 796763 UNIT/GM External Powder (Nystop)Indications: Candidal skin infection APPLY TOPICALLY TO AFFECTED AREA 3 TIMES A DAY. 60 g 1 04/16/2022 Active documented as of this encounter (statuses as of 04/18/2022) Active Problems Problem Noted Date Allergic rhinitis [...] as of this encounter (statuses as of 04/18/2022) Resolved Problems Problem Noted Date Resolved Date [...] as of this encounter (statuses as of 04/18/2022) Immunizations Name Administration Dates Next Due COVID-19 mRNA, LNP-s, No Pre serve, 2-Dose Series (onlinetours) 09/13/2021,12/16/2020,11/25/2020 Pneumococcal Conjugate Vacc, 13 Valent (Prevnar) [...] Miscellaneous Notes * Telephone Encounter - Magda Singer LPN - 04/18/2022 9:38 AM EDT [facility] Enrollment Form Screening: Referral Source: Case Management Pharmacy Clinical Coordinator Name: Chanelle Zimmeruma Primary Reason for Referral (Select most relevant): Multiple chronic comorbid conditions Engagement: Engagement Attempt 1: Unable to contact Engagement Attempt 2: Contacted - Agreed to home-based services Scheduled appointment information: New [facility] #1 on 04/25 Deborah Matias and on 05/01 Magda Guy [facility]ST[facility]#2 primary nurse Sandrine Layne these are dates that worked for patient. Home Information: Has pets, Has Wi-Fi Advance Care Planning (ACP): Medical Power of Backup Engineer Name: Cathy Jose Carlos Relationship: daughter Has Living Will or Advance Directive: No data was found Anticipated Sub-Program: Focused Care Management (3-9 months) Confirmation of Sub-Program Type (by care crab steamer): No data was found Handoff Information: Current care team notified via: [employer] communication Current telemonitoring equipment: No data was found documented in this encounter Plan of Treatment Upcoming Encounters Date Type Specialty Care Team Description 04/25/2022 Home Visit [facility] Deborah Matias, RN [address] [place] [address] 05/01/2022 Home Visit [facility] Magda Guy PA-C [address] [facility] [place] [address] 06/22/2022 Office Visit Family Medicine Yariel Cardoza MD [address] [place] [address] [place] [address] Scheduled Procedures Name Priority [...] Documents on File Type Date Recorded 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
--- OUTSIDE RECORDS SUMMARY | 2023-06-07 07:43 | External Medical Summary | Summary of Care ---
Author Name Unknown Organization [place] [address] Care Team Providers Care Senior Human Resources Representative Name Role Phone Yariel Cardoza MD Primary Care Provide r Encounter Details Date Type Department Care Team Description 04/12/2022 Pole Peeling Machine Operator HelperSenior Linux EngineerWenatche[facility] [address] [place] [address] Ashley Lam, SELENE [address] [place] [address] COPD, severe (HCC)* Allergies Active Allergy Reactions Severity Noted Date Comments Adhesive Tape 06/29/2003 Sensitive to Naproxen Hives 05/28/2015 Ivp Dye Hives 08/20/2000 Latex Other (Please comment) 01/05/2015 Contact rash Ibuprofen Rash 01/05/2015 documented as of this encounter (statuses as of 04/12/2022) Medications Medication Sig Dispensed Refills Start Date [...] OR WHEEZING. 360 mL 1 04/11/2020 Active Nystatin 788033 UNIT/GM External Powder (Nystop)Indications: Candidal skin infection APPLY TOPICALLY TO AFFECTED AREA 3 TIMES A DAY. 45 g 1 03/17/2021 Active Meclizine HCl 25 MG Oral Tablet [...] 50 mg . 0 04/01/2022 Acti ve predniSONE 20 MG Oral Tablet (Deltasone)Indicatio ns:Acute right ankle pain 1 tab 3 times a day for 3 days, then 1 tab 2 times a day for 3 days, then 1 tab daily for 3 days 18 Tablet 0 04/02/2022 Active Furosemide 40 MG Oral Tablet (Lasix)Indications:B ilateral lower extremity edema Take by mouth 1 Tablet in the morning. As needed for swelling or fluid accumulation. 30 Tablet 0 04/02/2022 Active DM-guaiFENesin ER 30-600 MG Oral Tablet Extended Release 12 Hour Take by mouth 1 Tablet in the morning AND 1 Tablet before bedtime. For 5 days. 0 Active Amoxicillin 875 MG Oral Tablet Take by mouth 875 mg in the morning AND 875 mg before bedtime. 0 Active documented as of this encounter (statuses as of 04/12/2022) Active Problems Problem Noted Date Allergic rhinitis [...] as of this encounter (statuses as of 04/12/2022) Resolved Problems Problem Noted Date Resolved Date [...] as of this encounter (statuses as of 04/12/2022) Immunizations Name Administration Dates Next Due COVID-19 mRNA, LNP-s, No Pre serve, 2-Dose Series ([employer]) 09/13/2021,12/16/2020,11/25/2020 Pneumococcal Conjugate Vacc, 13 Valent (Prevnar) [...] Progress Notes * Ashley Lam RN - 04/12/2022 8:30 AM EDT Case Management Assessment-late entry, spoke with patient on 04/11/22, patient s/p hospitalization [facility] on 04/05/22 with cough & SOB, patient treated for COPD exacerbation, sepsis & Pneumonia, started on IVF, IVAB, steroids, neb treatments, discharged home on 04/10/22 HX: COPD, VIRA, HTN, hx of TIA Is this call for a hospital, penitentiary or rehab facility discharge to home? Yes see above S: Reports: Patient denies SOB, LE edema or angina Has a dry cough, using O2 at 2 liters most of the time Has a good appetite, denies bowel/bladder complaints No complaints of pain, no skin issues, sleeping okay at night Lives with her & family in a double wide trailer Patient independent with ambulation & ADL's, still drives, manages her own medications Confirmed PCP follow up appointment on 04/16/11 Patient states she will check to make sure she has a pulmonary appointment [place] [facility] O: Phone visit for post hospitalization. Medications: medication reconciliation completed with pateint and takes all medications as prescribed. Does this [...] to communicate, understand instructions, process information. 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 No Re-evaluation of plan of care and progress towards goals achievement: Plan to call patient next week to reassess and update plan of care, instructed to call Case Manageror Primary Care Provider with change in symptoms or as needed before next follow-up, verbalizes understanding and agrees with plan. Ashley Lam RN Outpatient Pole Peeling Machine Operator Helper documented in this encounter Plan of Treatment Upcoming Encounters Date Type Specialty Care Team Description 04/16/2022 Office Visit Yariel Landry MD [address] [place] [address] [place] [id number] 06/22/2022 Office Visit Yariel Landry MD [address] [place] [address] [place] [address] Scheduled Procedures Name Priority Associated Diagnoses Date/Ti [...] Additional history exists Dexa Scan 08/17/2022 08/17/2015 BASIC METABOLIC PANEL (BMP) FOR HTN YEARLY 11/28/2022 11/28/2021, 06/06/2021, 12/26/2020, Additional history exists Prediabetes-Yearly Hemoglobin A1c 11/28/2022 11/28/2021, 11/28/2021, 12/26/2020, Additional history exists O2 ASSESSMENT COMPLETED IN PAST YEAR FOR COPD 04/02/2023 04/02/2022 COLONOSCOPY-EVERY 3 YRS AGES 18-100 08/28/2024 08/28/2021, 06/30/2021, 06/15/2021, Additional history exists DIABETES SCREEN EVERY 3 YRS-AGE 45 AND ABOVE 11/28/2024 11/28/2021, 11/28/2021, 06/06/2021, Additional history exists DTaP,Tdap,and Td Vaccines (2 [...] Documents on File Type Date Recorded Patient Machine Hostler Expl 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 Directive Advanced Directive Advanced Directive Care Teams Senior Human Resources Representative Relationship Specialty Start Date End Date Yariel Cardoza MD [address] [place] [address] [place] [address] PCP - General Family Medicine 12/01/18 documented as of this encounter
--- OUTSIDE RECORDS SUMMARY | 2023-06-07 07:43 | External Medical Summary | Summary of Care ---
Author Name Unknown Organization [place] [address] Care Team Providers Care [employer] Name Role Phone Yariel Cardoza MD Primary Care Provide r Reason for Referral * Evaluate & Treat - Unlimited Visits (Within 10 days (routine)) - Authorized Specialty Diagnoses / Procedures Referred By Contjose juan t Referred To Contact HOME [facility] Diagnoses COPD, severe (HCC) Spinal stenosis of lumbar region, unspecified whether neurogenic claudication present Peripheral vascular disease (HCC) Prediabetes HTN, goal below 140/90 Yariel Cardoza MD [address] [place] [address] [place] [id number] Referral ID Status Reason Start Date Expiration Date Visits Requested Visits Authorized Authorized Specialty Services Required 04/16/2022 999 [id number] Question Answer Referral Priority Within 10 days (routine) Does patient have multiple co-morbid conditions? Yes Does patient have [facility] insurance? Yes Comments Is referral coming from Care Coordination and Integration? No Reason for Visit * Reason Onset Date Comments Hospital Follow-Up Hospital Follow-Up 04/16/2022 Encounter Details Date Type Department Care Team Description 04/16/2022 Office Visit Family Medicine [address] [place] [phone] Yariel Cardoza MD [address] [place] [address] [place] [id number] Hospital discharge follow-up*; COPD, severe (HCC); Thrush; Jaw pain; Spinal stenosis of lumbar region, unspecified whether neurogenic claudication present; Peripheral vascular disease (HCC); Prediabetes; Acute right ankle pain; HTN, goal below 140/90; Dyslipidemia, goal LDL below 100; Moderate episode of recurrent major depressive disorder (HCC); Candidal skin infection Allergies Active Allergy Reactions Severity Noted Date Comments Adhesive Tape 06/29/2003 Sensitive to Naproxen Hives 05/28/2015 Ivp Dye Hives 08/20/2000 Latex Other (Please comment) 01/05/2015 Contact rash Ibuprofen Rash 01/05/2015 documented as of this encounter (statuses as of 04/16/2022) Medications Medication Sig Dispensed Refills Start Date [...] (Ultram) 50 mg . 0 04/01/2022 Active Furosemide 40 MG Oral Tablet (Lasix)Indications: Bilateral lower extremity edema Take by mouth 1 Tablet in the morning. As needed for swelling or fluid accumulation. 30 Tablet 0 04/02/2022 Active DM-guaiFENesin ER 30-600 MG Oral Tablet Extended Release 12 Hour Take by mouth 1 Tablet in the morning AND 1 Tablet before bedtime. For 5 days. 0 Active Nystatin 743256 UNIT/ML Mouth/Throat SuspensionIndicatio ns:Thrush Swish and swallow 5 mL in the morning AND 5 mL at noon AND 5 mL in the evening AND 5 mL before bedtime. For thrush.. 240 mL 1 04/16/2022 05/16/20 Active Nystatin 306428 UNIT/GM External Powder (Nystop)Indications :Candidal skin infection APPLY TOPICALLY TO AFFECTED AREA 3 TIMES A DAY. 60 g 1 04/16/2022 Active Nystatin 665065 UNIT/GM External Powder (Nystop)Indications :Candidal skin infection APPLY TOPICALLY TO AFFECTED AREA 3 TIMES A DAY. 45 g 1 03/17/2021 04/16/20 Discontinu ed(Refill) predniSONE 20 MG Oral Tablet (Deltasone)Indicati ons:Acute right ankle pain 1 tab 3 times a day for 3 days, then 1 tab 2 times a day for 3 days, then 1 tab daily for 3 days 18 Tablet 0 04/02/2022 04/16/20 Discontinu ed(End of Procedure) Amoxicillin 875 MG Oral Tablet Take by mouth 875 mg in the morning AND 875 mg before bedtime. 0 04/16/20 Discontinu ed(End of Procedure) documented as of this encounter (statuses as of 04/16/2022) Active Problems Problem Noted Date Allergic rhinitis [...] as of this encounter (statuses as of 04/16/2022) Resolved Problems Problem Noted Date Resolved Date [...] as of this encounter (statuses as of 04/16/2022) Immunizations Name Administration Dates Next Due COVID-19 mRNA, LNP-s, No Pre serve, 2-Dose Series (Revo Round) 09/13/2021,12/16/2020,11/25/2020 Pneumococcal Conjugate Vacc, 13 Valent (Prevnar) [...] Sign Reading Time Taken Comments Blood Pressure 124/76 04/16/2022 5:30 PM EDT Pulse 81 04/16/2022 5:30 PM EDT Temperature 36.9 C (98.5 F) 04/16/2022 5:30 PM ED T Respiratory Rate 16 04/16/2022 5:30 PM EDT Oxygen Saturation 95% 04/16/2022 5:30 PM EDT Inhaled Oxygen Concentration - - Weight 94.1 kg (207 lb 6.4 oz) 04/16/2022 5:30 P M EDT Height - - Body Mass Index 39.19 06/20/2021 9:03 AM EDT documented in this encounter Patient Instructions * Patient Instructions* Yariel Cardoza MD - 04/16/2022 5:36 PM EDT Taking Medicine Safely Medicine is given to help treat or prevent illness. But if you don't take it correctly, it might not help. It might even harm you. Your doctor or pharmacist can help you learn the right way to take your medicine. Listed below are some tips to help you take medicine safely. Safety Tips Have a routine for taking each medicine. Make it part of something you do each day, such as brushing your teeth or eating a meal. When you go to the hospital or your doctor's office, bring all your current medicines in their original boxes or bottles. If you can't do that, bring an up-to-date list of your medicines. Do not stop taking a prescription medicine unless your doctor tells you to. Doing so could make your condition worse. Do not share medicines. Let your doctor and pharmacist know of any allergies you have. Taking prescription medicines with alcohol, street drugs, herbs, supplements, or even some gctm-bfe-vazgjbn medicines can be harmful. Talk to your doctor or pharmacist before using any of these things while taking a prescription medicine. When filling your prescriptions, try using the same pharmacy for all your medicines. If not, let the pharmacist know what medicines you are already on. Keep medicines out of the reach of children and pets. Do not use medicine that has or that doesn't look or smell right. Get rid of it properly. To find out the right way to get rid of medicine: Call your [facility] or [facility]'s household trash and recycling service and ask if a drug take-back program is available in your community. Call your local pharmacy and ask the right way to get rid of the medicine. Go to http://www.fda.gov/ForConsumers/ConsumerUpdates/xpj236212 to learn how to get rid of medicines safely. Using Generic Medicines Medicines have brand names and generic (chemical) names. When a medicine is first made, it is sold only under its brand name. Later, it can be made and sold as a generic. Generic medicines cost less than brand-name medicines and most work just as well. Most people can use the generic medicine instead of the brand-name medicine, unless their doctor says otherwise. 3104-1731 [facility], [address] [place] [address]. All rights reserved. This information is not intended as a substitute for professional medical care. Always follow your healthcare professional's instructions. Coping with Your Diagnosis of a Chronic Health Condition If you have a chronic health condition, you have a problem that may not go away over time. Heart disease, asthma, arthritis, and diabetes are just a few of the chronic conditions that exist. Right now, these conditions have no known cure. But you can take an active role in managing your health. Coping with Your Diagnosis If you've just learned about your health condition, you may be angry, depressed, or afraid. Or you might feel relieved just to know what's wrong. Even if you've known about your health problem for a while, adjusting to it can be hard. But learning about your condition can help you cope. Look for books at your local library. If you have access to a computer, check the Internet. Or contact a group that focuses on your specific problem. Accepting Change Change is hard for most people. Yet right now you may be facing many changes. What you eat or the way you work may change. Your moods, and even your symptoms, might vary from day to day. Although it isn't easy, learning to accept change can help you feel more in control. Taking Control Feeling you have control can make living with your condition easier. Discuss treatment options withyour health care provider. The more you know, the more active you can be in your care. Moving Forward You may wonder whether you will be able to do the things you've always done. That depends on your age, the condition you have, and your goals. To make the most of each day, try to build caring relationships, be active, and eat right. Also, do your best to keep a sense of humor. [phone] [facility], [address] [place] [address]. All rights reserved. This information is not intended as a substitute for professional medical care. Always follow your healthcare professional's instructions. Taking an Active Role in Your Medicines Take the time to learn about your medicine. For instance, why are you taking it? What does it do? Work with your doctor or other health care providers to get the answers you need. Talk to your pharmacist about how to take each medicine, and ask for a fact sheet on each one. Ask Questions About Your Medicine What is the name of the medicine? Why do I need to take it? When should I take it? How should I take it: with water? with food? on an empty stomach? How much do I take? What do I do if I miss a dose? What side effects could it cause and which ones should I call the doctor about? Are there any foods or medicines I should avoid while taking this medicine? Keeping track of your medications? Name of medicine: Taken for: Dose: Time(s) to take it: Take an Active Role Fill all your prescriptions at the same pharmacy. This keeps your medicine history in one place. Talk to the pharmacist. Make sure you understand how to take each medicine. Ask for a fact sheet about each one. Tell your doctor and pharmacist about all the prescription and pbci-erm-rwhcmmi medicines you take.This includes vitamins and herbal remedies. Tell your doctor and pharmacist if you have any medical conditions or allergies to any medicine or food, or if you are or . Keep a list of all your medicines. Use the sample to the right as a guide for the type of information needed. [phone] [facility], [address] [place] [address], [place] [address]. All rights reserved. This information is not intended as a substitute for professional medical care. Always follow your healthcare professional's instructions. documented in this encounter Progress Notes * Yariel Cardoza MD - 04/16/2022 5:36 PM EDT SUBJECTIVE: Jayla Hayes is a 76 year old female. Chief Complaint Patient presents with Hospital Follow-Up Hospital Follow-Up Recent Admission: Patient was recently admitted to [facility] on 04/05/22. The date of discharge was 04/10/2022. Discharge report received and reviewed. HPI: Brief Clinical History Ms. Hayes is a 76 year old woman last seen in Family Medicine 2 weeks ago (04-02-22). She has h/o COPD, COPD, severe (HCC), depression, Moderate episode of recurrent major depressive disorder (HCC), morbid obesity, Peripheral vascular disease (HCC), Severe obesity with body mass index (BMI) of 35.0 to 39.9 with serious comorbidity (HCC), and vascular disease. Admitted to [facility] 04/05/22-04/10/22 with COPD exacerbation/pneumonia. Was treated with IV steroids and IV antibiotics. Had bibasilar opacities and admitted with acute respiratory failure due to COPD exacerbation and CAP. She was started on Rocephin and Zithromax and narrowed to Augmentin on discharge, which she has completed. Her breathing has improved but is still coughing a lot. Is taking Mucinex and OTC cough syrup. Using her inhalers and nebulizer. States her breathing has been worse ever sinceshe had COVID. Seeing Dr. Araya for pulmonary. Is to be having PFTs at [facility] soon. Is wearing oxygen at night andwith any exertion. Right ankle is still hurting her a lot. Is still swollen. Radiating up to right knee. Is seeing for it 04/19/22. Did not have the pain in the right ankle in the hospital but started up again after discharge. Was seen in the ED 04/01/22 for it and had negative x-ray and negative venous doppler. Having some pain along left lower jaw. Having some pain over the right eye as well. Tyelnol relieves it. The jaw pain just started a few days ago. Lasts about 15 minutes without any other associated symptoms. Denies any chest pain or pain radiating to the arm. Last stress test was 04/2017 and was normal. Patient Active Problem List Diagnosis Code Slow [...] esophagitis K21.9 Prediabetes R73.03 Allergic rhinitis J30.9 Current Outpatient Medications Medication Sig Dispense Refill oxygen GAS Use 2 L/min(Oxygen) as directed continuous. 1 Each 0 VENTOLIN HFA 108 (90 Base) MCG/ACT inhaler INHALE 2 PUFFS BY MOUTH EVERY 4 HOURS NEEDED FOR WHEEZING. 1 Inhaler 5 Dextromethorphan-guaiFENesin (CORICIDIN HBP CONGESTION/COUGH) 10-200 MG CAPS [...] HOURS NEEDED FOR DIZZINESS/VERTIGO 10 Tab 0 Losartan Potassium 50 MG Oral Tablet (Cozaar) Take 1 Tab by mouth daily. 30 Tab 5 Bisacodyl 5 MG Oral Tablet Delayed Release (Dulcolax) Take 10 mg by mouth at bedtime. Polyethylene Glycol 3350 17 GM/SCOOP Oral Powder (MiraLax) Take 17 g by mouth 2 times a day. Clopidogrel Bisulfate 75 MG Oral Tablet (pLAVix) TAKE 1 TABLET BY MOUTH EVERY DAY 90 Tablet 2 Ondansetron 4 MG Oral Tablet Disintegrating Place 1 Tablet on tongue every 8 hours as needed for Nausea. 30 Tablet 0 Benzonatate 100 MG Oral Capsule (Tessalon Perles) Take 1 Capsule by mouth 3 times a day as needed for Cough. 30 Capsule 1 Atenolol 25 MG Oral Tablet (Tenormin) TAKE 1 TABLET BY MOUTH EVERY DAY 90 Tablet 1 Budesonide 0.5 MG/2ML Inhalation Suspension (Pulmicort) INHALE ONE UNIT DOSE VIAL VIA NEBULIZERTWO TIMES A DAY. 120 mL 5 Amitriptyline HCl 25 MG Oral Tablet (Elavil) TAKE 1 TABLET BY MOUTH EVERYDAY AT BEDTIME 90 Tablet 1 Potassium Chloride ER 10 MEQ Oral Tablet Extended Release TAKE 1 TABLET BY MOUTH EVERY DAY 90 Tablet 3 hydroCHLOROthiazide 25 MG Oral Tablet (Hydrodiuril) Take by mouth 1 Tablet in the morning. 90 Tablet 0 Omeprazole 20 MG Oral Capsule Delayed Release (PriLOSEC) TAKE 2 CAPSULES BY MOUTH EVERY DAY 180Capsule 3 Atorvastatin Calcium 40 MG Oral Tablet (Lipitor) TAKE 1 TABLET BY MOUTH EVERY DAY 90 Tablet 3 Furosemide 40 MG Oral Tablet (Lasix) Take by mouth 1 Tablet in the morning. As needed for swelling or fluid accumulation. 30 Tablet 0 DM-guaiFENesin ER 30-600 MG Oral Tablet Extended Release 12 Hour Take by mouth 1 Tablet in the morning AND 1 Tablet before bedtime. For 5 days. Nystatin 251731 UNIT/ML Mouth/Throat Suspension Swish and swallow 5 mL in the morning AND 5 mL at noon AND 5 mL in the evening AND 5 mL before bedtime. For thrush.. 240 mL 1 Nystatin 616799 UNIT/GM External Powder (Nystop) APPLY TOPICALLY TO AFFECTED AREA 3 TIMES A DAY. 60 g 1 umeclidinium-vilanterol (ANORO ELLIPTA) 62.5-25 MCG/INH AEPB Inhale 1 Puff by mouth daily. Naphazoline-Pheniramine 0.025-0.3 % Ophthalmic Solution (Naphcon-A) 1 Drop 3 times a day. Indications: 1-2 drops each eye as needed for eye irritation (Patient not taking: Reported on 04/16/2022 ) Zoster Vac Recomb Adjuvanted 50 MCG/0.5ML Intramuscular Suspension Reconstituted (Shingrix) Inject 0.5 mL into a large muscle now and repeat dose in 60 to 180 days 1 Each 0 Dicyclomine HCl 10 MG Oral Capsule (Bentyl) TAKE ONE CAPSULE BY MOUTH 4 TIMES DAILY NEEDED FOR ABDOMINAL PAIN, CRAMPING (Patient not taking: Reported on 04/16/2022) 360 Capsule 1 traMADol HCl 50 MG Oral Tablet (Ultram) 50 mg . (Patient not taking: Reported on 04/16/2022 ) No current facility-administered medications for this visit. Current and discharge medications have been reconciled. Review of patient's allergies indicates: Allergen Reactions Adhesive Tape Sensitive to Aleve [Naproxen] Hives Ivp Dye Hives Latex Other (Please comment) Contact rash Motrin [Ibuprofen] Rash OBJECTIVE: BP 124/76 | Pulse 81 | Temp 36.9 C (98.5 F) (Tympanic) | Resp 16 | Wt 94.1 kg (207 lb 6.4 oz) |SpO2 95% | BMI 39.19 kg/m | BSA 2.01 m Review Of Systems: Skin: pt denies, new or changing moles, pigmentation change, rash, scaling, itching, bruising, lumps or bumps, hair changes, nail changes Eyes: negative Ears/Nose/Throat: +as per HPI Respiratory: +as per HPI Cardiovascular: pt denies:, palpitations, tachycardia, chest pain, exertional chest pain or pressure and +right lower extremity edema Gastrointestinal: pt. denies:, abdominal pain, dysphagia, blood in stool or black stools, constipation or change in bowel habits, diarrhea, +reflux Genitourinary: pt denies:, nocturia, dysuria and frequency Musculoskeletal: +right ankle pain, right knee pain, and left jaw pain Neurologic: pt denies:, syncope, seizures and +mild headache above right eye Psychiatric: negative, pt denies:, sleep disturbance, anxiety, nervousness and depression Hematologic/Lymphatic/Immunologic: pt denies:, anemia, bruising, bleeding disorder and weight loss Endocrine: pt denies:, thyroid disorder, cold intolerance, heat intolerance, diabetes and +prediabetes PHYSICAL EXAM: General: alert, no distress, well nourished, well developed and chronically ill appearing female seated in a wheelchair Head: Normocephalic, No masses, lesions, tenderness or abnormalities, no jaw tenderness to palpation. No cracking when opening mouth Eye Exam: PERRLA, extraocular movements intact, conjunctiva are pink and non- injected, sclera clear Ears: External ears normal, Canals clear, TM's Normal Nose: no mucosal erythema, no mucosal edema, no purulent discharge Oropharynx: no exudate, no erythema, lips, buccal mucosa, and tongue normal, and +thrush Neck: supple, no adenopathy, no bruits Heart: regular rate & rhythm, no murmurs and no gallops Lungs: chest symmetric with normal AP diameter, no chest deformities noted, no chest wall tenderness, lungs clear to auscultation, decreased breath sounds Extremities: no clubbing, no cyanosis, 2+ edema around ankle with mild tenderness over medial malleolus Neuro Exam: alert & oriented x 3 with fluent speech, no focal motor/sensory deficits ASSESSMENT: Hospital discharge follow-up (Primary) - DISCH MED RECON CUR MED LIS COPD, severe (HCC) - [facility] Thrush - Nystatin 969541 UNIT/ML Mouth/Throat Suspension; Swish and swallow 5 mL in the morning AND 5 mL at noon AND 5 mL in the evening AND 5 mL before bedtime. For thrush.. Jaw pain Spinal stenosis of lumbar region, unspecified whether neurogenic claudication present - [facility] Peripheral vascular disease (HCC) - [facility] Prediabetes - [facility] Acute right ankle pain HTN, goal below 140/90 - [facility] Dyslipidemia, goal LDL below 100 Moderate episode of recurrent major depressive disorder (HCC) Candidal skin infection - Nystatin 443058 UNIT/GM External Powder (Nystop); APPLY TOPICALLY TO AFFECTED AREA 3 TIMES A DAY. PLAN: Continue present medication(s): Renew prescriptions for Nystatin powder for skin rash. Begin medication(s): Nystatin swish and swallow for thrush. Continue OTC medications for cough, which should gradually resolve. Referral(s) to: [facility]. Has been having more issues lately since discharged from services in January. Patient education: Discussed stress test regarding left jaw pain. Declines at this time but [place] call if she decides to pursue it. Follow-up with podiatry as scheduled 04/19/22 regarding right ankle pain. Could be tendonitis. May need re-x-ray and/or MRI if not improving. Follow up as scheduled. Yariel Cardoza MD documented in this encounter Nursing Notes * Karlene Nichole LPN - 04/16/2022 5:30 PM EDT [facility] hospital discharge Still has ongoing cough Breathing issues documented in this encounter Plan of Treatment Upcoming Encounters Date Type Specialty Care Team Description 06/22/2022 Office Visit Family Medicine Yariel Cardoza MD [address] [place] [address] [place] [phone] Scheduled Procedures Name Priority Associated Diagnoses Date/Ti me COLONOSCOPY FLEXIBLE PROXIMAL DIAGNOSTIC Recall History of colon polyps Scheduled Referrals Name Type Priority Associated Diagnoses Orde r Schedule [facility] Referral Within 10 days (routine) COPD, severe (HCC) Spinal stenosis of lumbar region, unspecified whether neurogenic claudication present Peripheral vascular disease (HCC) Prediabetes HTN, goal below 140/90 Ordered: 04/16/2022 Health Maintenance Due Date Last Done Comments [...] as of this encounter Visit Diagnoses Diagnosis Hospital discharge follow-up- Primary Other follow-up examination COPD, severe (HCC) Chronic airway obstruction, not elsewhere classified Thrush Candidiasis of mouth Jaw pain Spinal stenosis of lumbar region, unspecified whether neurogenic claudication present Peripheral vascular disease (HCC) Peripheral vascular disease, unspecified Prediabetes Other abnormal glucose Acute right ankle pain HTN, goal below 140/90 Unspecified essential hypertension Dyslipidemia, goal LDL below 100 Other and unspecified hyperlipidemia Moderate episode of recurrent major depressive disorder (HCC) Candidal skin infection Candidiasis of skin and nails documented in this encounter Advance Directives Documents on File Type Date Recorded 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
--- OUTSIDE RECORDS SUMMARY | 2023-06-07 07:43 | External Medical Summary | Summary of Care ---
Author Name Unknown Organization [place] [address] Care Team Providers Care Mental Health Technician Name Role Phone Yariel Cardoza MD Primary Care Provide r Encounter Details Date Type Department Care Team Description 04/20/2022 Result Scan Unspecified Department <No scans attached> Allergies Active Allergy Reactions Severity Noted Date Comments Adhesive Tape 06/29/2003 Sensitive to Naproxen Hives 05/28/2015 Ivp Dye Hives 08/20/2000 Latex Other (Please comment) 01/05/2015 Contact rash Ibuprofen Rash 01/05/2015 documented as of this encounter (statuses as of 04/23/2022) Medications Medication Sig Dispensed Refills Start Date [...] bedtime. For 5 days. 0 Active Nystatin 847270 UNIT/ML Mouth/Throat SuspensionIndication s:Thrush Swish and swallow 5 mL in the morning AND 5 mL at noon AND 5 mL in the evening AND 5 mL before bedtime. For thrush.. 240 mL 1 04/16/2022 Active Nystatin 321906 UNIT/GM External Powder (Nystop)Indications: Candidal skin infection APPLY TOPICALLY TO AFFECTED AREA 3 TIMES A DAY. 60 g 1 04/16/2022 Active documented as of this encounter (statuses as of 04/23/2022) Active Problems Problem Noted Date Allergic rhinitis [...] as of this encounter (statuses as of 04/23/2022) Resolved Problems Problem Noted Date Resolved Date [...] as of this encounter (statuses as of 04/23/2022) Immunizations Name Administration Dates Next Due COVID-19 [...] Specialty Care Team Description 04/25/2022 Home Visit [facility] Deborah Matias, RN [address] [facility] [place] [address] 05/01/2022 Home Visit [facility] Magda Guy PA-C [address] [facility] [place] [address] 06/22/2022 Office Visit Family Medicine Yariel Cardoza MD [address] [place] [address] [place] [address] Scheduled Procedures Name Priority Associated Diagnoses Date/Ti [...] Date/Time Associated Diagnosis Comments RADIOLOGY SCANNED RESULT 04/20/2022 documented in this encounter Results * RADIOLOGY SCANNED RESULT (04/20/2022) Specimen Narrative documented in this encounter Advance Directives Documents on File Type Date Recorded 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
--- OUTSIDE RECORDS SUMMARY | 2023-06-07 07:44 | External Medical Summary | Summary of Care ---
Author Name Unknown Organization [facility] [address] Care Team Providers Care Vp Global Marketing [employer] Name Role Phone Leanne Cardoza MD Primary Care Provide r Reason for Visit * Reason Comments eRx-Medication Refill Encounter Details Date Type Department Care Team Description 03/30/2022 Refill Family Medicine [address] [place] [address] Jade Castillo MD [address] [place] [address] [place] [phone] Irritable bowel syndrome with both constipation and diarrhea Allergies Active Allergy Reactions Severity Noted Date Comments Adhesive Tape 06/29/2003 Sensitive to Naproxen Hives 05/28/2015 Ivp Dye Hives 08/20/2000 Latex Other (Please comment) 01/05/2015 Contact rash Ibuprofen Rash 01/05/2015 documented as of this encounter (statuses as of 04/02/2022) Medications Medication Sig Dispensed Refills Start Date [...] OR WHEEZING. 360 mL 1 0 Active Nystatin 851029 UNIT/GM External Powder (Nystop)Indications :Candidal skin infection APPLY TOPICALLY TO AFFECTED AREA 3 TIMES A DAY. 45 g 1 1 Active Meclizine HCl 25 MG Oral Tablet [...] EVERY DAY 90 Tablet 3 2 Active hydroCHLOROthiazide 25 MG Oral Tablet (Hydrodiuril) Take by mouth 1 Tablet in the morning. 90 Tablet 0 2 Active Omeprazole 20 MG Oral Capsule [...] PAIN, CRAMPING 360 Capsule 1 2 Active Dicyclomine HCl 10 MG Oral CapsuleIndications: Irritable bowel syndrome with both constipation and diarrhea Take 1 Cap by mouth 4 times a day as needed (abdominal pain, cramping). for abdominal pain 120 Cap 5 1 04/02/20 22 Discontinued documented as of this encounter (statuses as of 04/02/2022) Active Problems Problem Noted Date Prediabetes 12/18/2021 Overview: Per Prediabetes protocol Peripheral [...] as of this encounter (statuses as of 04/02/2022) Resolved Problems Problem Noted Date Resolved Date [...] as of this encounter (statuses as of 04/02/2022) Immunizations Name Administration Dates Next Due COVID-19 mRNA, LNP-s, No Pre serve, 2-Dose Series (Swiftype) 09/13/2021,12/16/2020,11/25/2020 Pneumococcal Conjugate Vacc, 13 Valent (Prevnar) [...] Telephone Encounter - Leanne Cardoza MD - 04/02/2022 10:49 AM EDT Signed Prescriptions: Disp Refills Dicyclomine HCl 10 MG Oral Capsule (Bentyl)360 Ca*1 Sig: TAKE ONE CAPSULE BY MOUTH 4 TIMES DAILY NEEDED FOR ABDOMINAL PAIN, CRAMPING Authorizing Provider: LEANNE CARDOZA * Telephone Encounter - Don Szym[facility] - 04/01/2022 9:19 AM EDT Pending Prescriptions: Disp Refills Dicyclomine HCl 10 MG Oral Capsule [Pharma*360 Ca*1 Sig: TAKE ONE CAPSULE BY MOUTH 4 TIMES DAILY NEEDED FOR ABDOMINAL PAIN, CRAMPING * Telephone Encounter - Don Szymanski [facility] - 04/01/2022 9:19 AM EDT Pending Prescriptions: Disp Refills Dicyclomine HCl 10 MG Oral Capsule [Pharma*360 Ca*1 Sig: TAKE ONE CAPSULE BY MOUTH 4 TIMES DAILY NEEDED FOR ABDOMINAL PAIN, CRAMPING Last Visit: 10/16/2021 (in office), Visit date not found (telemedicine) Next Visit: 06/22/2022 If no future appointments scheduled, and last appointment is greater than a year ago, please schedule patient for a follow-up appointment Last date the medication was ordered: 12/22 Pharmacy: [id number] [facility] Is this request for a controlled substance? No Urine Drug Screen:No results found. However, due [...] 09:08 AM HGBA1C 5.7 03/19/2017 08:05 AM Thanks, Francy MarcumD Clinical Pharmacist [facility] [phone] 04/01/2022,9:19 AM documented in this encounter Plan of Treatment Upcoming Encounters Date Type Specialty Care Team Description 06/22/2022 Office Visit Family Medicine Leanne Cardoza MD [address] [place] [address] [place] [id number] Scheduled Procedures Name Priority Associated Diagnoses Date/Ti me COLONOSCOPY FLEXIBLE PROXIMAL DIAGNOSTIC Recall History of colon polyps Health Maintenance Due Date Last Done Comments Zoster Vaccines (1 of 2) 1993 *ADVANCE DIRECTIVE NOT ON FILE 12/23/2015 Depression Screening, Annual for Pts 12 and Over 08/11/2020 08/11/2019 COVID-19 Vaccine (4 - Booster for Pfizer series) 01/12/2022 09/13/2021, 12/16/2020, 11/25/2020 Dexa Scan 08/17/2022 08/17/2015 O2 ASSESSMENT COMPLETED IN PAST YEAR FOR COPD 11/20/2022 11/20/2021 BASIC METABOLIC PANEL (BMP) FOR HTN YEARLY 11/28/2022 11/28/2021, 06/06/2021, 12/26/2020, Additional history exists Prediabetes-Yearly Hemoglobin A1c 11/28/2022 11/28/2021, 11/28/2021, 12/26/2020, Additional history exists COLONOSCOPY-EVERY 3 YRS AGES 18-100 08/28/2024 08/28/2021, 06/30/2021, 06/15/2021, Additional history exists DIABETES SCREEN EVERY 3 YRS-AGE 45 AND ABOVE 11/28/2024 11/28/2021, 11/28/2021, 06/06/2021, Additional history exists DTaP,Tdap,and Td Vaccines (2 - Td or Tdap) 04/19/2028 04/19/2018, 05/03/2004, 05/03/2004 Pneumococcal Vaccine: 65+ Years Completed 03/28/2017, 09/21/2015 Influenza Vaccine (FLU shot) Completed , 08/12/2020, 08/12/2020, Additional history exists GARDASIL-HPV IMMUNIZATION SERIES Aged Out No longer eligible based on patient's age to complete this topic MENINGOCOCCAL (MENACTRA/MENVEO) Aged Out No longer eligible based on patient's age to complete this topic documented as of this encounter Implants Not on filedocumented as of this encounter Visit Diagnoses Diagnosis Irritable bowel syndrome with both constipation and diarrhea documented in this encounter Advance Directives Documents on File Type Date Recorded 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
--- OUTSIDE RECORDS SUMMARY | 2023-06-07 07:44 | External Medical Summary | Summary of Care ---
Author Name Unknown Organization [place] [address] Care Team Providers Care Visual Coordinator Name Role Phone Yariel Cradoza MD Primary Care Provide r Encounter Details Date Type Department Care Team Description 04/10/2022 Scan Encounter Family Medicine [address] [place] [address] Yariel Cardoza MD [address] [place] [address] [place] [address] <No scans attached> Allergies Active Allergy Reactions Severity Noted Date Comments Adhesive Tape 06/29/2003 Sensitive to Naproxen Hives 05/28/2015 Ivp Dye Hives 08/20/2000 Latex Other (Please comment) 01/05/2015 Contact rash Ibuprofen Rash 01/05/2015 documented as of this encounter (statuses as of 04/11/2022) Medications Medication Sig Dispensed Refills Start Date [...] WHEEZING. 360 mL 1 04/11/2020 Active Nystatin [id number] UNIT/GM External Powder (Nystop)Indications: Candidal skin infection [...] fluid accumulation. 30 Tablet 0 04/02/2022 Active documented as of this encounter (statuses as of 04/11/2022) Active Problems Problem Noted Date Allergic rhinitis [...] as of this encounter (statuses as of 04/11/2022) Resolved Problems Problem Noted Date Resolved Date [...] osteoarthritis 08/22/201503/30 Tubular adenoma of colon 07/20/2015 11/20/2 018 Gastroesophageal reflux disease without esophagi tis [...] as of this encounter (statuses as of 04/11/2022) Immunizations Name Administration Dates Next Due COVID-19 mRNA, LNP-s, No Pre serve, 2-Dose Series (OpenEd) 09/13/2021,12/16/2020,11/25/2020 Pneumococcal Conjugate Vacc, 13 Valent (Prevnar) [...] Specialty Care Team Description 04/16/2022 Office Visit Family Yariel Gordillo MD [address] [place] [address] [place] [id number] 06/22/2022 Office Visit Family Yariel Gordillo MD [address] [place] [address] [place] [id number] Scheduled Procedures Name Priority Associated Diagnoses Date/Ti [...] Documents on File Type Date Recorded 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
--- OUTSIDE RECORDS SUMMARY | 2023-06-07 07:44 | External Medical Summary | Summary of Care ---
Author Name Unknown Organization [place] [address] Care Team Providers Care Inspector Timers Name Role Phone Leanne Cardoza MD Primary Care Provide r Reason for Visit * Reason Comments eRx-Medication Refill Encounter Details Date Type Department Care Team Description 02/26/2022 Refill Family [address] [place] [address] Leanne Cardoza MD [address] [place] [address] [place] [phone] Gastroesophageal reflux disease without esophagitis Allergies Active Allergy Reactions Severity Noted Date Comments Adhesive Tape 06/29/2003 Sensitive to Naproxen Hives 05/28/2015 Ivp Dye Hives 08/20/2000 Latex Other (Please comment) 01/05/2015 Contact rash Ibuprofen Rash 01/05/2015 documented as of this encounter (statuses as of 02/26/2022) Medications Medication Sig Dispensed Refills Start Date [...] OR WHEEZING. 360 mL 1 0 Active Dicyclomine HCl 10 MG Oral CapsuleIndications: Irritable bowel syndrome with both constipation and diarrhea Take 1 Cap by mouth 4 times a day as needed (abdominal pain, cramping). for abdominal pain 120 Cap 5 1 Active Nystatin [id number] UNIT/GM External Powder (Nystop)Indications :Candidal skin infection [...] CAPSULES BY MOUTH EVERY DAY 180 Capsule 1 1 02/27/20 22 Discontinued Atorvastatin Calcium 40 MG Oral Tablet (Lipitor) TAKE 1 TABLET BY MOUTH EVERY DAY 90 Tablet 1 1 02/27/20 22 Discontinued documented as of this encounter (statuses as of 02/26/2022) Active Problems Problem Noted Date Prediabetes 12/18/2021 [...] as of this encounter (statuses as of 02/26/2022) Resolved Problems Problem Noted Date Resolved Date [...] as of this encounter (statuses as of 02/26/2022) Immunizations Name Administration Dates Next Due COVID-19 mRNA, LNP-s, No Pre serve, 2-Dose Series (Mi-Pay) 09/13/2021,12/16/2020,11/25/2020 Pneumococcal Conjugate Vacc, 13 Valent (Prevnar) [...] Notes * Telephone Encounter - An[facility] - 02/26/2022 6:10 PM EDT Signed Prescriptions: Disp Refills Omeprazole 20 MG Oral Capsule Delayed Rele*180 Ca*3 Sig: TAKE 2 CAPSULES BY MOUTH EVERY DAYAuthorizing Provider: LEANNE CARDOZA User: ANAND PARRISH Atorvastatin Calcium 40 MG Oral Tablet (Li*90 Tab*3 Sig: TAKE 1 TABLET BY MOUTH EVERY JEFF uthorizing Provider: LEANNE CARDOZA User: ANAND PARRISH documented in this encounter Plan of Treatment Upcoming Encounters Date Type Specialty Care Team Description 06/22/2022 Office Visit Family Medicine Leanne Cardoza MD [address] [place] [address] [place] [phone] Scheduled Procedures Name Priority Associated Diagnoses Date/Ti me COLONOSCOPY FLEXIBLE PROXIMAL DIAGNOSTIC Recall History of colon polyps Health Maintenance Due Date Last Done Comments Zoster Vaccines (1 of 2) 1993 *ADVANCE DIRECTIVE NOT ON FILE 12/23/2015 Depression Screening, Annual for Pts 12 and Over 08/11/2020 08/11/2019 Dexa Scan 08/17/2022 08/17/2015 O2 ASSESSMENT COMPLETED [...] Completed , 08/12/2020, 08/12/2020, Additional history exists COVID-19 Vaccine Completed 09/13/2021, 09/2021, 11/25/2020 GARDASIL-HPV IMMUNIZATION SERIES Aged Out No longer eligible based on patient's age to complete this topic MENINGOCOCCAL (MENACTRA/MENVEO) Aged Out No longer eligible based on patient's age to complete this topic documented as of this encounter Implants Not on filedocumented as of this encounter Visit Diagnoses Diagnosis Gastroesophageal reflux disease without esophagitis Esophageal reflux documented in this encounter Advance Directives Documents on File Type Date Recorded 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
--- OUTSIDE RECORDS SUMMARY | 2023-06-07 07:44 | External Medical Summary | Summary of Care ---
Author Name Unknown Organization [place] [address] Care Team Providers Care Vision Specialist Name Role Phone Yariel Cardoza MD Primary Care Provide r Encounter Details Date Type Department Care Team Description 04/05/2022 Scan Encounter Family Medicine [address] [place] [address] Yariel Cardoza MD [address] [place] [address] [place] [address] <No scans attached> Allergies Active Allergy Reactions Severity Noted Date Comments Adhesive Tape 06/29/2003 Sensitive to Naproxen Hives 05/28/2015 Ivp Dye Hives 08/20/2000 Latex Other (Please comment) 01/05/2015 Contact rash Ibuprofen Rash 01/05/2015 documented as of this encounter (statuses as of 04/06/2022) Medications Medication Sig Dispensed Refills Start Date [...] WHEEZING. 360 mL 1 04/11/2020 Active Nystatin 818999 UNIT/GM External Powder (Nystop)Indications: Candidal skin infection [...] as of this encounter (statuses as of 04/06/2022) Active Problems Problem Noted Date Allergic rhinitis [...] as of this encounter (statuses as of 04/06/2022) Resolved Problems Problem Noted Date Resolved Date [...] as of this encounter (statuses as of 04/06/2022) Immunizations Name Administration Dates Next Due COVID-19 mRNA, LNP-s, No Pre serve, 2-Dose Series (Myrio) 09/13/2021,12/16/2020,11/25/2020 Pneumococcal Conjugate Vacc, 13 Valent (Prevnar) [...] Visit Family Medicine Yariel Cardoza MD [address] [place] [address] [place] [address] Scheduled Procedures Name Priority [...] Documents on File Type Date Recorded 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
--- OUTSIDE RECORDS SUMMARY | 2023-06-07 07:44 | External Medical Summary | Summary of Care ---
Author Name Unknown Organization [place] [address] Care Team Providers Care Director Mortgage Name Role Phone Yariel Cardoza MD Primary Care Provide r Encounter Details Date Type Department Care Team Description 04/01/2022 Scan Encounter Family Medicine [address] [place] [address] Yariel Cardoza MD [address] [place] [address] [place] [address] <No scans attached> Allergies Active Allergy Reactions Severity Noted Date Comments Adhesive Tape 06/29/2003 Sensitive to Naproxen Hives 05/28/2015 Ivp Dye Hives 08/20/2000 Latex Other (Please comment) 01/05/2015 Contact rash Ibuprofen Rash 01/05/2015 documented as of this encounter (statuses as of 04/03/2022) Medications Medication Sig Dispensed Refills Start Date [...] WHEEZING. 360 mL 1 04/11/2020 Active Nystatin [id number] UNIT/GM External Powder (Nystop)Indications: Candidal skin infection [...] PAIN, CRAMPING 360 Capsule 1 04/02/2022 Active documented as of this encounter (statuses as of 04/03/2022) Active Problems Problem Noted Date Allergic rhinitis [...] as of this encounter (statuses as of 04/03/2022) Resolved Problems Problem Noted Date Resolved Date [...] as of this encounter (statuses as of 04/03/2022) Immunizations Name Administration Dates Next Due COVID-19 mRNA, LNP-s, No Pre serve, 2-Dose Series ([employer]) 09/13/2021,12/16/2020,11/25/2020 Pneumococcal Conjugate Vacc, 13 Valent (Prevnar) [...] Visit Family Medicine Yariel Cardoza MD [address] [place] [address] [place] [phone] Scheduled Procedures Name Priority Associated Diagnoses Date/Ti me COLONOSCOPY FLEXIBLE PROXIMAL DIAGNOSTIC Recall History of colon polyps Health Maintenance Due Date Last Done Comments Zoster Vaccines (1 of 2) 1993 *ADVANCE DIRECTIVE NOT ON FILE 12/23/2015 Depression Screening, Annual for Pts 12 and Over 08/11/2020 08/11/2019 COVID-19 Vaccine (4 - Booster for Pfizer series) 01/12/2022 09/13/2021, 12/16/2020, 11/25/2020 Dexa Scan 08/17/2022 08/17/2015 BASIC METABOLIC PANEL [...] Documents on File Type Date Recorded 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
--- OUTSIDE RECORDS SUMMARY | 2023-06-07 07:44 | External Medical Summary | Summary of Care ---
Author Name Unknown Organization [place] [address] Care Team Providers Care Writing Center Director Name Role Phone Yariel Cardoza MD Primary Care Provide r Encounter Details Date Type Department Care Team Description 04/05/2022 Scan Encounter Family Medicine [address] [place] [address] Yariel Cardoza MD [address] [place] [address] [place] [address] <No scans attached> Allergies Active Allergy [...] WHEEZING. 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
--- OUTSIDE RECORDS SUMMARY | 2023-06-07 07:44 | External Medical Summary | Summary of Care ---
Author Name Unknown Organization [place] [address] Care Team Providers Care News Intern Name Role Phone Yariel Cardoza MD Primary Care Provide r Reason for Visit * Reason Comments Emergency Department Follow-Up Encounter Details Date Type Department Care Team Description 04/02/2022 Office Visit Family Medicine [address] [address] Yariel Cardoza MD [address] [place] [address] [place] [phone] Acute right ankle pain*; Bilateral lower extremity edema; Allergic rhinitis, unspecified seasonality, unspecified trigger; COPD, severe (HCC) Allergies Active Allergy Reactions Severity Noted Date [...] WHEEZING. 360 mL 1 04/11/2020 Active Nystatin 027634 UNIT/GM External Powder (Nystop)Indications: Candidal skin infection [...] of 04/02/2022) Active Problems Problem Noted Date Allergic rhinitis [...] mRNA, LNP-s, No Pre serve, 2-Dose Series (Imagimod) 09/13/2021,12/16/2020,11/25/2020 Pneumococcal Conjugate Vacc, 13 Valent (Prevnar) [...] Sign Reading Time Taken Comments Blood Pressure 136/84 04/02/2022 5:28 PM EDT Pulse 80 04/02/2022 5:28 PM EDT Temperature 37.1 C (98.8 F) 04/02/2022 5:28 PM ED T Respiratory Rate - - Oxygen Saturation 90% 04/02/2022 5:28 PM EDT Inhaled Oxygen Concentration - - Weight 93.7 kg (206 lb 9.6 oz) 04/02/2022 5:28 P M EDT Height - - Body Mass Index 39.04 06/20/2021 9:03 AM EDT documented in this encounter Progress Notes * Yariel Cardoza MD - 04/02/2022 5:36 PM EDT Subjective: Jayla Hayes is a 76 year old female. Chief Complaint Patient presents with Emergency Department Follow-Up HPI: Brief Clinical History Ms. Hayes is a 76 year old woman last seen in Family Medicine 5 months ago (10-16-21). She has h/o COPD, COPD, severe (HCC), depression, Moderate episode of recurrent major depressive disorder (HCC), morbid obesity, Peripheral vascular disease (HCC), Severe obesity with body mass index (BMI) of 35.0to 39.9 with serious comorbidity (HCC), and vascular disease. Has had right ankle pain for 1 month. Hurts over the medial malleolus. Does not recall any injury. Her ankle has been swollen for the whole month. Has been coming and going but the pain got worse this weekend and went to [facility] ED on 04/01/22. Was given Tramadol but has not taken it yet. Has been taking Tylenol. Given Dilaudid and Zofran in ED. Had negative Doppler for DVT, x-ray, and labs. Uric acid was normal. Lyme test was negative. Her other labs were normal or unremarkable. Started coughing this afternoon. Eyes and nose were running this morning. Not short of breath rightnow but gets short of breath in the humidity. Uses oxygen at home. No fever or chills. Has a ticklein her throat. No sore throat or earache. No sick contacts. Uses Anoro every morning. Uses nebulizer twice in the morning and sometimes again in the afternoon. Is scheduled for PFT through pulmonology. Results for orders placed or performed in [...] reflux disease without esophagitis K21.9 Prediabetes R73.03 Current Outpatient Medications Medication Sig Dispense Refill oxygen GAS Use 2 L/min(Oxygen) as directed continuous. 1 Each 0 VENTOLIN HFA 108 (90 Base) MCG/ACT inhaler INHALE 2 PUFFS BY MOUTH EVERY 4 HOURS NEEDED FOR WHEEZING. 1 Inhaler 5 umeclidinium-vilanterol (ANORO ELLIPTA) 62.5-25 MCG/INH AEPB Inhale 1 Puff by mouth daily. Cholecalciferol 1000 units Capsule Take 2,000 Units by mouth daily. albuterol-ipratropium (DUONEB) 2.5-0.5 MG/3ML nebulizer solution INHALE 3 MLS VIA NEBULIZER EVERY 4 HOURS NEEDED FOR COUGH, SHORTNESS OF BREATH OR WHEEZING. 360 mL 1 Nystatin 317016 UNIT/GM External Powder (Nystop) APPLY TOPICALLY TO AFFECTED AREA 3 TIMES A DAY. 45 g 1 Meclizine HCl 25 MG Oral Tablet (Antivert) TAKE 1 TABLET BY MOUTH ONCE EVERY 6 HOURS NEEDED FOR DIZZINESS/VERTIGO 10 Tab 0 Losartan Potassium 50 MG Oral Tablet (Cozaar) Take 1 Tab by mouth daily. 30 Tab 5 Bisacodyl 5 MG Oral Tablet Delayed Release (Dulcolax) Take 10 mg by mouth at bedtime. Naphazoline-Pheniramine 0.025-0.3 % Ophthalmic Solution (Naphcon-A) 1 Drop 3 times a day. Indications: 1-2 drops each eye as needed for eye irritation Polyethylene Glycol 3350 17 GM/SCOOP Oral Powder (MiraLax) Take 17 g by mouth 2 times a day. Clopidogrel Bisulfate 75 MG Oral Tablet (pLAVix) TAKE 1 TABLET BY MOUTH EVERY DAY 90 Tablet 2 Ondansetron 4 MG Oral Tablet Disintegrating Place 1 Tablet on tongue every 8 hours as needed for Nausea. 30 Tablet 0 Atenolol 25 MG Oral Tablet (Tenormin) TAKE [...] MG Oral Tablet (Ultram) 50 mg . Dextromethorphan-guaiFENesin (CORICIDIN HBP CONGESTION/COUGH) 10-200 MG CAPS Take by mouth. Every 4-6 hours as needed for cough Benzonatate 100 MG Oral Capsule (Tessalon Perles) Take 1 Capsule by mouth 3 times a day as needed for Cough. 30 Capsule 1 Zoster Vac Recomb Adjuvanted 50 MCG/0.5ML Intramuscular Suspension Reconstituted (Shingrix) Inject 0.5 mL into a large muscle now and repeat dose in 60 to 180 days 1 Each 0 No current facility-administered medications for this visit. 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 BENIGN HYPERTENSION 01/28/2002 Bilateral carpal tunnel syndrome 07/20/2015 COPD (chronic obstructive pulmonary disease) ([facility]) COPD, severe ([facility]) 12/21/2015 COPD, severity to be determined ([facility]) 07/20/2015 Dyslipidemia, goal LDL below 100 10/16/2015 Dyslipidemia, goal LDL below 130 08/22/2015 FAM HX-CARDIOVAS DIS NEC 01/28/2002 Generalized osteoarthritis 08/22/2015 GERD (gastroesophageal reflux disease) 07/20/2015 Hypertrophy of breast 08/31/2003 IBS (irritable bowel syndrome) 07/20/2015 Kidney disease, chronic, stage III (GFR 30-59 ml/min) ([facility]) 10/16/2015 Kidney stone Lumbar degenerative disc disease 02/06/2016 Lumbar facet arthropathy ([facility]) 02/06/2016 Lumbar spinal stenosis 02/18/2017 Mixed incontinence urge and stress (male)(female) 07/20/2015 Multiple thyroid nodules 09/09/2016 Obesity, Class II, BMI 35.0-39.9, with comorbidity (see actual BMI) 01/19/2016 Primary osteoarthritis of right knee 02/18/2017 Pulmonary hypertension ([facility]) 05/07/2017 Reflux esophagitis 01/28/2002 Slow transit constipation 07/20/2015 Thyroid nodule 09/05/2016 Tubular adenoma of colon 07/20/2015 Urge incontinence 05/03/2004 Urinary, incontinence, stress female 02/21/2016 Past Surgical History: Procedure Laterality Date ARTHROCENT ASP &/OR INJ MAJOR JX/BURSA W/O US 04/06/2019 ARTHROCENTESIS OR INJECTION MAJOR JOINT performed by Todd Kunz, at OR [facility] BIOPSY OF BREAST, OPEN 1971 benign, right, removed nipple for blocked milk glands BIOPSY OF BREAST, OPEN 1976 left, benign BREAST SURGERY PROCEDURE NEC bilateral Breast Reduction 09/20/03 BUNION CORRECTED WITH DOUBLE OSTEOTOMY 1991 right foot COLONOSCOPY, DIAGNOSTIC (RECTUM) 03/08/2015 adenomatous polyps, repeat 3 yrs/[facility] COLONOSCOPY, DIAGNOSTIC (RECTUM) 03/26/2018 adenomatous & serrated adenomatous polyps, repeat 3 yrs/[facility] EGD, FLEXIBLE, DIAGNOSTIC 01/21/2015 sm HH/[facility] EGD, FLEXIBLE, DIAGNOSTIC 07/22/2018 mild gastritis, Schatzki ring, duodenal polyp/[facility] ESOPHAGOSCOPY RIGID TRANSORAL HYPOPHARYNX ESOPHAGUS 2004 repair [...] Types: Cigarettes Quit date: 10/07/1995 Years since quittin.5 Smokeless tobacco: Never Used Tobacco comment: quit [...] Contact rash Motrin [Ibuprofen] Rash Objective: BP 136/84 | Pulse 80 | Temp 37.1 C (98.8 F) | Wt 93.7 kg (206 lb 9.6 oz) | SpO2 90% | BMI 39.04kg/m | BSA 2.01 m Physical Exam: General: alert, healthy, no distress, well nourished and well developed [...] breath sounds Extremities: no clubbing, no cyanosis, +localized swelling over right medial malleolus greater thanlateral and also mild medial and lateral swelling of the left ankle. Extensive ROS Constitutional (f/c/wt/vision/hearing): Negative Resp (cough/sob/malagon): see above hpi CV (cp/palp/fluttering/diaphoresis/malagon/pnd):see above hpi GI (n/v/d/hrtburn): Negative Endo (hair/cold or heat intol/ 3 p's): Negative Neuro (shaking/weak/fatigu/parasthesi/): Negative Skin (rash/easy bruis/xerosis): Negative Psy (si/hi/halluc/): Negative (nocturia/hesit/drib/sexual review): Negative Lymph (swollen glands/b sx's/: Negative ASSESSMENT: Acute right ankle pain (Primary) - predniSONE 20 MG Oral Tablet (Deltasone); 1 tab 3 times a day for 3 days, then 1 tab 2 times a day for 3 days, then 1 tab daily for 3 days Bilateral lower extremity edema - Furosemide 40 MG Oral Tablet (Lasix); Take by mouth 1 Tablet in the morning. As needed for swelling or fluid accumulation. Allergic rhinitis, unspecified seasonality, unspecified trigger COPD, severe (HCC) PLAN: Continue present medication(s): Begin medication(s): Prednisone taper for acute right ankle pain. Furosemide 40 mg daily x 1 week and then as needed for edema. Recommend starting loratadine, cetirizine, or fexofenadine daily for allergies. No injury and does not appear to be gout. Reviewed ED records. Lyme testing negative. Could be tendonitis, sprain, or possibly from fluid retention in legs. Referral(s) to: keep follow-up with Dr. Andrews as scheduled 04/05/22. Follow up: As scheduled. Yariel Cardoza MD documented in this encounter Nursing Notes * Salma Alaniz LPN - 04/02/2022 5:26 PM EDT [facility] ER follow up, Right ankle pain, still painful but unable to do therapy, she was referred to ortho in [place] but it's not fractured so she doesn't understand why, arthritis?. Pt states she is still in pain. Pt c/o cough that started today. documented in this encounter Plan of Treatment Upcoming Encounters Date Type Specialty Care Team Description 06/22/2022 Office Visit Family Medicine Yariel Cardoza MD [address] [place] [address] [place] [id number] Scheduled Procedures Name Priority Associated Diagnoses Date/Ti [...] of this encounter Visit Diagnoses Diagnosis Acute right ankle pain- Primary Bilateral lower extremity edema Edema Allergic rhinitis, unspecified seasonality, unspecified trigger COPD, severe (HCC) Chronic airway obstruction, not elsewhere classified documented in this encounter Advance Directives Documents on File Type Date Recorded Patient Tuyere Fitter Expl 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 Directive Advanced Directive Advanced Directive Care Teams News Intern Relationship Specialty Start Date End Date Yariel Cardoza MD [address] [place] [address] [place] [id number] PCP - General Family Medicine 12/01/18 documented as of this encounter"
--- OUTSIDE RECORDS SUMMARY | 2023-06-07 07:45 | External Medical Summary | Summary of Care ---
Author Name Unknown Organization [place] [address] Care Team Providers Care Gold Plater Name Role Phone Yariel Cardoza MD Primary Care Provide r Reason for Visit * Reason Comments Patient Assistance Program Encounter Details Date Type Department Care Team Description 01/15/2022 Pharmacy Pharmacy, [facility] [address] [place] [address] Coordinator, Pharmacy Reimbursement [address] [place] [address] COPD, severe ([facility])* Allergies Active Allergy Reactions Severity Noted Date Comments Adhesive Tape 06/29/2003 Sensitive to Naproxen Hives 05/28/2015 Ivp Dye Hives 08/20/2000 Latex Other (Please comment) 01/05/2015 Contact rash Ibuprofen Rash 01/05/2015 documented as of this encounter (statuses as of 01/15/2022) Medications Medication Sig Dispensed Refills Start Date [...] OR WHEEZING. 360 mL 1 04/11/2020 Active Dicyclomine HCl 10 MG Oral CapsuleIndications:I rritable bowel syndrome with both constipation and diarrhea Take 1 Cap by mouth 4 times a day as needed (abdominal pain, cramping). for abdominal pain 120 Cap 5 12/22/2020 Active Nystatin 885299 UNIT/GM External Powder (Nystop)Indications: Candidal skin infection APPLY TOPICALLY TO AFFECTED AREA 3 TIMES A DAY. 45 g 1 03/17/2021 Active hydroCHLOROthiazide 25 MG Oral Tablet (Hydrodiuril) TAKE 1 TABLET BY MOUTH EVERY DAY 90 Tab 3 04/15/2021 Active Potassium Chloride ER 10 MEQ Oral Tablet Extended Release TAKE 1 TABLET BY MOUTH EVERY DAY 90 Tab 2 06/05/2021 Active Meclizine HCl 25 MG Oral Tablet [...] mouth 2 times a day. 0 Active Omeprazole 20 MG Oral Capsule Delayed Release (PriLOSEC)Indication s:Gastroesophageal reflux disease without esophagitis TAKE 2 CAPSULES BY MOUTH EVERY DAY 180 Capsule 1 08/28/2021 Active Clopidogrel Bisulfate 75 MG Oral Tablet (pLAVix)Indications: Stenosis of right vertebral artery,TIA (transient ischemic attack) TAKE 1 TABLET BY MOUTH EVERY DAY 90 Tablet 2 09/07/2021 Active Atorvastatin Calcium 40 MG Oral Tablet (Lipitor) TAKE 1 TABLET BY MOUTH EVERY DAY 90 Tablet 1 09/08/2021 Active Ondansetron 4 MG Oral Tablet Disintegrating [...] AT BEDTIME 90 Tablet 1 11/01/2021 Active documented as of this encounter (statuses as of 01/15/2022) Active Problems Problem Noted Date Prediabetes 12/18/2021 [...] as of this encounter (statuses as of 01/15/2022) Resolved Problems Problem Noted Date Resolved Date [...] as of this encounter (statuses as of 01/15/2022) Immunizations Name Administration Dates Next Due COVID-19 mRNA, LNP-s, No Pre serve, 2-Dose Series (Bumpr) 09/13/2021,12/16/2020,11/25/2020 Pneumococcal Conjugate Vacc, 13 Valent (Prevnar) [...] as of this encounter Progress Notes * VIRA Marrufo - 01/15/2022 3:16 PM EDT Patient Call Message received Message: Called patient. She is approved for pace. She will use her pace when she gets her next anora inhaler. I also mailed a [employer] thaddeus for anora. Details:follow up Pharmacy Insurance:[facility] [employer] [facility] Provider 01/15/2022, 3:24 PM documented in this encounter Plan of Treatment Upcoming Encounters Date Type Specialty Care Team Description 01/25/2022 Pharmacy Networker, Pharmacy Reimbursement [address] [facility] [place] [id number] 06/22/2022 Office Visit Family Medicine Yariel Cardoza MD [address] [place] [address] [place] [phone] Scheduled Procedures Name Priority [...] Documents on File Type Date Recorded Patient Production Operations Inspector Expl 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 Directive Advanced Directive Advanced Directive Care Teams Gold Plater Relationship Specialty Start Date End Date Yariel Cardoza MD [address] [place] [address] [place] [id number] PCP - General Family Medicine 12/01/18 documented as of this encounter
--- OUTSIDE RECORDS SUMMARY | 2023-06-07 07:45 | External Medical Summary | Summary of Care ---
Author Name Unknown Organization [place] [address] Care Team Providers Care Laborer Road Name Role Phone Yariel Cardoza MD Primary Care Provide r Encounter Details Date Type Department Care Team Description 12/20/2021 Scan Encounter Family Medicine [address] [place] [address] Yariel Cardoza MD [address] [place] [address] [place] [address] <No scans attached> Allergies Active Allergy Reactions Severity Noted Date Comments Adhesive Tape 06/29/2003 Sensitive to Naproxen Hives 05/28/2015 Ivp Dye Hives 08/20/2000 Latex Other (Please comment) 01/05/2015 Contact rash Ibuprofen Rash 01/05/2015 documented as of this encounter (statuses as of 12/21/2021) Medications Medication Sig Dispensed Refills Start Date [...] pain 120 Cap 5 12/22/2020 Active Nystatin 476017 UNIT/GM External Powder (Nystop)Indications: Candidal skin infection [...] as of this encounter (statuses as of 12/21/2021) Active Problems Problem Noted Date Prediabetes 12/18/2021 [...] as of this encounter (statuses as of 12/21/2021) Resolved Problems Problem Noted Date Resolved Date [...] as of this encounter (statuses as of 12/21/2021) Immunizations Name Administration Dates Next Due COVID-19 mRNA, LNP-s, No Pre serve, 2-Dose Series (Hammerless) 09/13/2021,12/16/2020,11/25/2020 Pneumococcal Conjugate Vacc, 13 Valent (Prevnar) [...] Encounters Date Type Specialty Care Team Description 01/12/2022 [facility] [place] [id number] 06/22/2022 Office Visit Family Medicine Yairel Cardoza MD [address] [place] [address] [place] [phone] Scheduled Procedures Name Priority Associated Diagnoses Date/Ti [...] Documents on File Type Date Recorded Patient Child Development Consultant Expl 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 Directive Advanced Directive Advanced Directive Care Teams Laborer Road Relationship Specialty Start Date End Date Yariel Cardoza MD [address] [place] [address] [place] [phone] PCP - General Family Medicine 12/01/18 documented as of this encounter
--- OUTSIDE RECORDS SUMMARY | 2023-06-07 07:45 | External Medical Summary | Summary of Care ---
Author Name Unknown Organization [place] [address] Care Team Providers Care Small Engine Technician Name Role Phone Yariel Cardoza MD Primary Care Provide r Reason for Visit * Reason Onset Date Comments Advice 12/14/2021 Encounter Details Date Type Department Care Team Description 12/14/2021 Telephone Pharmacy, [address] [place] [address] [place] [address] Advice Allergies Active Allergy Reactions Severity Noted [...] pain 120 Cap 5 12/22/2020 Active Nystatin 763730 UNIT/GM External Powder (Nystop)Indications: Candidal skin infection [...] mRNA, LNP-s, No Pre serve, 2-Dose Series (Tail) 09/13/2021,12/16/2020,11/25/2020 Pneumococcal Conjugate Vacc, 13 Valent (Prevnar) [...] encounter Miscellaneous Notes * Telephone Encounter - Radha Redmond RPh - 12/26/2021 2:29 PM EDT Any updates on this patient/PAP application? I wasn't sure if I could sign this encounter or not. Thanks! Radha Redmond RPh, Pharm D Clinicial Pharmacist 12/26/2021, 2:29 PM * Telephone Encounter - Radha Redmond RPh - 12/15/2021 12:52 PM EST She will be in great hands with Yasmeen. Thanks! * Telephone Encounter - Radha Redmond RPh - 12/14/2021 3:39 PM EST Patient seen at husbands visit Questioning if she qualifies for patient assistance program for her Anora Inhaler as it is unaffordable otherwise Also provided number for PACE Please assist. Radha Redmond RPh, Francy D Clinicial Pharmacist 12/14/2021, 3:40 PM documented in this encounter Plan of Treatment Upcoming Encounters Date Type Specialty Care Team Description 01/25/2022 Pharmacy Food And Beverage Intern, Pharmacy Reimbursement [address] [facility] [place] [address] 06/22/2022 Office Visit Family Medicine Yariel Cardoza MD [address] [place] [address] [place] [address] Scheduled Procedures Name Priority [...] Documents on File Type Date Recorded Patient Plastic Straightening Roll Operator Expl 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 Directive Advanced Directive Advanced Directive Care Teams Small Engine Technician Relationship Specialty Start Date End Date Yariel Cardoza MD [address] [place] [address] [place] [id number] PCP - General Family Medicine 12/01/18 documented as of this encounter
--- OUTSIDE RECORDS SUMMARY | 2023-06-07 07:45 | External Medical Summary | Summary of Care ---
Author Name Unknown Organization [place] [address] Care Team Providers Care Underwriting Director Name Role Phone Leanne Cardoza MD Primary Care Provide r Reason for Visit * Reason Onset Date Comments Medication Refill 02/08/2022 Encounter Details Date Type Department Care Team Description 02/08/2022 Refill Family Medicine [address] [phone] Leanne Cardoza MD [address] [place] [address] [place] [phone] Allergies Active Allergy Reactions Severity Noted Date Comments Adhesive Tape 06/29/2003 Sensitive to Naproxen Hives 05/28/2015 Ivp Dye Hives 08/20/2000 Latex Other (Please comment) 01/05/2015 Contact rash Ibuprofen Rash 01/05/2015 documented as of this encounter (statuses as of 02/08/2022) Medications Medication Sig Dispensed Refills Start Date [...] 04/11/2020 Active Dicyclomine HCl 10 MG Oral CapsuleIndications: Irritable bowel syndrome with both constipation and diarrhea Take 1 Cap by mouth 4 times a day as needed (abdominal pain, cramping). for abdominal pain 120 Cap 5 12/22/2020 Active Nystatin 708843 UNIT/GM External Powder (Nystop)Indications :Candidal skin infection APPLY TOPICALLY TO AFFECTED AREA 3 TIMES A DAY. 45 g 1 03/17/2021 Active Meclizine HCl 25 MG Oral Tablet (Antivert) TAKE 1 TABLET BY MOUTH ONCE EVERY 6 HOURS NEEDED FOR DIZZINESS/VERTI GO 10 Tab 0 06/06/2021 Active Losartan Potassium [...] the morning. 90 Tablet 0 02/08/2022 Active hydroCHLOROthiazide 25 MG Oral Tablet (Hydrodiuril) TAKE 1 TABLET BY MOUTH EVERY DAY 90 Tab 3 04/15/2021 2 Discontinu ed(Refill) documented as of this encounter (statuses as of 02/08/2022) Active Problems Problem Noted Date Prediabetes 12/18/2021 [...] as of this encounter (statuses as of 02/08/2022) Resolved Problems Problem Noted Date Resolved Date [...] as of this encounter (statuses as of 02/08/2022) Immunizations Name Administration Dates Next Due COVID-19 mRNA, LNP-s, No Pre serve, 2-Dose Series (piSociety) 09/13/2021,12/16/2020,11/25/2020 Pneumococcal Conjugate Vacc, 13 Valent (Prevnar) [...] encounter Miscellaneous Notes * Telephone Encounter - Kt Baeza [facility] - 02/08/2022 3:33 PM EDT Signed Prescriptions: Disp Refills hydroCHLOROthiazide 25 MG Oral Tablet (Hyd*90 Tab*0 Sig: Take bymouth 1 Tablet in the morning.Authorizing Provider: LEANNE CARDOZA User: KT BAEZA * Telephone Encounter - Kt Baeza [facility] - 02/08/2022 3:32 PM EDT Resent remaining refill to pharmacy due to refills expiring through PACE as requested. Thank you, Kt Baeza, PharmD Clinical Pharmacist [facility] [phone] 02/08/2022, 3:32 PM * Telephone Encounter - Evelyne Danielle [facility] - 02/08/2022 3:25 PM EDT Pt has PACE. Pharmacy needs a new rx. Pt has 1 pill left for tomorrow. Pending Prescriptions: Disp Refills hydroCHLOROthiazide 25 MG Oral Tablet (Hy*90 Tab*3 Sig: Take by mouth 1 Tablet in the morning. Last Visit: 10/16/2021 (in office), Visit date not found (telemedicine) Next Visit: 06/22/2022 If no future appointments scheduled, and last appointment is greater than a year ago, please schedule patient for a follow-up appointment Last date the medication was ordered: 04/15/21 Pharmacy: [id number] Is this request for a controlled substance?No [...] Visit Family Medicine Leanne Cardoza MD [address] [place] [address] [place] [phone] Scheduled Procedures Name Priority [...] Documents on File Type Date Recorded Patient Scratcher Tender Expl 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 Directive Advanced Directive Advanced Directive Care Teams Underwriting Director Relationship Specialty Start Date End Date Leanne Cardoza MD [address] [place] [address] [place] [phone] PCP - General Family Medicine 12/01/18 documented as of this encounter
--- OUTSIDE RECORDS SUMMARY | 2023-06-07 07:45 | External Medical Summary | Summary of Care ---
Author Name Unknown Organization [place] [address] Care Team Providers Care Vp Client Services Name Role Phone Yariel Cardoza MD Primary Care Provide r Encounter Details Date Type Department Care Team Description 12/20/2021 Orders Only Family Medicine [address] [address] Yariel Cardoza MD [address] [place] [address] [place] [address] Allergies Active Allergy Reactions Severity Noted Date Comments Adhesive Tape 06/29/2003 Sensitive to Naproxen Hives 05/28/2015 Ivp Dye Hives 08/20/2000 Latex Other (Please comment) 01/05/2015 Contact rash Ibuprofen Rash 01/05/2015 documented as of this encounter (statuses as of 12/20/2021) Medications Medication Sig Dispensed Refills Start Date [...] pain 120 Cap 5 12/22/2020 Active Nystatin 252069 UNIT/GM External Powder (Nystop)Indications: Candidal skin infection [...] as of this encounter (statuses as of 12/20/2021) Active Problems Problem Noted Date Prediabetes 12/18/2021 [...] as of this encounter (statuses as of 12/20/2021) Resolved Problems Problem Noted Date Resolved Date [...] as of this encounter (statuses as of 12/20/2021) Immunizations Name Administration Dates Next Due COVID-19 mRNA, LNP-s, No Pre serve, 2-Dose Series ([employer]) 09/13/2021,12/16/2020,11/25/2020 Pneumococcal Conjugate Vacc, 13 Valent (Prevnar) [...] Visit Family Medicine Yariel Cardoza MD [address] [place] [address] [place] [id number] Scheduled Procedures Name Priority Associated Diagnoses Date/Ti [...] Associated Diagnosis Comments MAMMOGRAM SCREENING BILATERAL Routine 12/18/2021 documented in this encounter Results * MAMMOGRAM SCREENING BILATERAL (12/18/2021) Anatomical Region Laterality Modality Breast Bilateral Other Specimen Narrative Performing Organization Address City/State/[facility] Co de Phone Number OUTSIDE LAB (SEE SCANNED REPORT) documented in this encounter Advance Directives Documents on File Type Date Recorded Patient Top Coater Expl 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 Advanced Directive Advanced Directive Care Teams Vp Client Services Relationship Specialty Start Date End Date Yariel Cardoza MD [address] [place] [address] [place] [id number] PCP - General Family Medicine 12/01/18 documented as of this encounter
--- OUTSIDE RECORDS SUMMARY | 2023-06-07 07:45 | External Medical Summary | Summary of Care ---
Author Name Unknown Organization [place] [address] Care Team Providers Care Supervisory Air Intercept Controller Name Role Phone Yariel Cardoza MD Primary Care Provide r Reason for Visit * Reason Onset Date Comments [facility]: Maintenance 12/18/2021 Encounter Details Date Type Department Care Team Description 12/18/2021 Scheduled Telephone [facility] [place] [address] Corrina Layne RN 132 [facility] [place] [address] Allergies Active Allergy Reactions Severity Noted Date [...] pain 120 Cap 5 12/22/2020 Active Nystatin 945613 UNIT/GM External Powder (Nystop)Indications: Candidal skin infection [...] mRNA, LNP-s, No Pre serve, 2-Dose Series ([employer]) 09/13/2021,12/16/2020,11/25/2020 Pneumococcal Conjugate Vacc, 13 Valent (Prevnar) [...] Telephone Encounter - Corrina Layne RN - 12/20/2021 5:41 PM EDT Pt with no recent utilization of ED or hospital >6 months. No acute [facility] interventions >6 months. Patient able to get out of home on a reguar basis and sees her primary care physician as well aspulmonology, GI, ENT. Patient notified at last home visit, 11/20/21 of [facility] dis- enrollment she was agreeable at that time . Left VM for patient to further discuss status and determine if [facility] closure at this time is appropriate. documented in this encounter Plan of Treatment Upcoming Encounters Date Type Specialty Care Team Description 06/22/2022 Office Visit Family Medicine Sony, Yariel Perea MD [address] [place] [address] [place] [address] Scheduled Procedures Name Priority [...] Documents on File Type Date Recorded Patient Advertising Assistant Expl 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 Directive Advanced Directive Advanced Directive Care Teams Supervisory Air Intercept Controller Relationship Specialty Start Date End Date Yariel Cardoza MD [address] [place] [address] [place] [address] PCP - General Family Medicine 12/01/18 documented as of this encounter
--- OUTSIDE RECORDS SUMMARY | 2023-06-07 07:45 | External Medical Summary | Summary of Care ---
Author Name Unknown Organization [place] [address] Care Team Providers Care Sergeant Missile Crewman Name Role Phone Yariel Cardoza MD Primary Care Provide r Reason for Visit * Reason Onset Date Comments [facility]: Maintenance 01/12/2022 Encounter Details Date Type Department Care Team Description 01/12/2022 Scheduled Telephone [facility], [facility] [place] [address] Corrina Layne RN 132 [facility] [place] [address] Allergies Active Allergy Reactions Severity Noted Date Comments Adhesive Tape 06/29/2003 Sensitive to Naproxen Hives 05/28/2015 Ivp Dye Hives 08/20/2000 Latex Other (Please comment) 01/05/2015 Contact rash Ibuprofen Rash 01/05/2015 documented as of this encounter (statuses as of 01/12/2022) Medications Medication Sig Dispensed Refills Start Date [...] pain 120 Cap 5 12/22/2020 Active Nystatin 575276 UNIT/GM External Powder (Nystop)Indications: Candidal skin infection [...] as of this encounter (statuses as of 01/12/2022) Active Problems Problem Noted Date Prediabetes 12/18/2021 [...] as of this encounter (statuses as of 01/12/2022) Resolved Problems Problem Noted Date Resolved Date [...] as of this encounter (statuses as of 01/12/2022) Immunizations Name Administration Dates Next Due COVID-19 mRNA, LNP-s, No Pre serve, 2-Dose Series ([employer]) 09/13/2021,12/16/2020,11/25/2020 Pneumococcal Conjugate Vacc, 13 Valent (Prevnar) [...] Telephone Encounter - Corrina Layne RN - 01/12/2022 3:16 PM EDT Follow up call to patient placed today. Patient has been stable and without acute needs >3 months. No [facility] acute interventions > 6 months. No ED or hospital utilization > 3 months. Patient has regular follow up appointments with pcp and specialties. ACP notes completed. Patient has living will and HCPOA in place. Reviewed with to continue to monitor for red flag symptoms and phone number of PCP office to call with questions or concerns. documented in this encounter Plan of Treatment Upcoming Encounters Date Type Specialty Care Team Description 06/22/2022 Office Visit Family Medicine Yariel Cardoza MD [address] [place] [address] [place] [phone] Scheduled Procedures Name Priority Associated Diagnoses Date/Ti [...] Directive Advanced Directive Advanced Directive Care Teams Sergeant Missile Crewman Relationship Specialty Start Date End Date Yariel Cardoza MD [address] [place] [address] [place] [phone] PCP - General Family Medicine 12/01/18 documented as of this encounter
--- OUTSIDE RECORDS SUMMARY | 2023-06-07 07:45 | External Medical Summary | Summary of Care ---
Author Name Unknown Organization [place] [address] Care Team Providers Care Rn International Name Role Phone Yariel Cardoza MD Primary Care Provide r Reason for Visit * Reason Comments eRx-Medication Refill Encounter Details Date Type Department Care Team Description 02/23/2022 Refill Family [address] [address] Yariel Cardoza MD [address] [place] [address] [place] [phone] Allergies Active Allergy Reactions Severity Noted Date Comments Adhesive Tape 06/29/2003 Sensitive to Naproxen Hives 05/28/2015 Ivp Dye Hives 08/20/2000 Latex Other (Please comment) 01/05/2015 Contact rash Ibuprofen Rash 01/05/2015 documented as of this encounter (statuses as of 02/24/2022) Medications Medication Sig Dispensed Refills Start Date [...] pain 120 Cap 5 12/22/2020 Active Nystatin 813532 UNIT/GM External Powder (Nystop)Indications: Candidal skin infection [...] the morning. 90 Tablet 0 02/08/2022 Active documented as of this encounter (statuses as of 02/24/2022) Active Problems Problem Noted Date Prediabetes 12/18/2021 [...] as of this encounter (statuses as of 02/24/2022) Resolved Problems Problem Noted Date Resolved Date [...] as of this encounter (statuses as of 02/24/2022) Immunizations Name Administration Dates Next Due COVID-19 mRNA, LNP-s, No Pre serve, 2-Dose Series ([employer]) 09/13/2021,12/16/2020,11/25/2020 Pneumococcal Conjugate Vacc, 13 Valent (Prevnar) [...] encounter Miscellaneous Notes * Telephone Encounter - Frank Mathews [facility] - 02/24/2022 12:06 PM EDT Refused Prescriptions: Disp Refills hydroCHLOROthiazide 25 MG Oral Tablet (Hyd*90 Tab*0 Sig: TAKE 1TABLET BY MOUTH EVERY DAY IN THE MORNINGRefused By: FRANK MATHEWS for Refusal: Too soon documented in this encounter Plan of Treatment Upcoming Encounters Date Type Specialty Care Team Description 06/22/2022 Office Visit Family Medicine Yariel Cardoza MD [address] [place] [address] [place] [address] Scheduled Procedures Name Priority [...] Documents on File Type Date Recorded Patient Blanket Washer Expl 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 Directive Advanced Directive Advanced Directive Care Teams Rn International Relationship Specialty Start Date End Date Yariel Cardoza MD [address] [place] [address] [place] [phone] PCP - General Family Medicine 12/01/18 documented as of this encounter
--- OUTSIDE RECORDS SUMMARY | 2023-06-07 07:45 | External Medical Summary | Summary of Care ---
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[facility])* Allergies Active Allergy Reactions Severity Noted Date Comments Adhesive Tape 06/29/2003 Sensitive to Naproxen Hives 05/28/2015 Ivp Dye Hives 08/20/2000 Latex Other (Please comment) 01/05/2015 Contact rash Ibuprofen Rash 01/05/2015 documented as of this encounter (statuses as of 01/25/2022) Medications Medication Sig Dispensed Refills Start Date [...] pain 120 Cap 5 12/22/2020 Active Nystatin 753080 UNIT/GM External Powder (Nystop)Indications: Candidal skin infection [...] as of this encounter (statuses as of 01/25/2022) Active Problems Problem Noted Date Prediabetes 12/18/2021 [...] as of this encounter (statuses as of 01/25/2022) Resolved Problems Problem Noted Date Resolved Date [...] as of this encounter (statuses as of 01/25/2022) Immunizations Name Administration Dates Next Due COVID-19 mRNA, LNP-s, No Pre serve, 2-Dose Series ([employer]) 09/13/2021,12/16/2020,11/25/2020 Pneumococcal Conjugate Vacc, 13 Valent (Prevnar) [...] encounter Progress Notes * VIRA Marrufo - 01/25/2022 11:33 AM EDT Patient Call Message received Message: Called patient to get an update with her [employer] thaddeus for her anora inhaler l/m on v/m. Called patient's daughter's mobile phone, the patient indicated that she did store associate her anora inhaler andno further assistance is needed, Details:follow up Pharmacy Insurance:[facility] [employer] Lacrosse Coach 01/25/2022, 12:50 PM documented in this encounter Plan of Treatment Upcoming Encounters Date Type Specialty Care Team Description 06/22/2022 Office Visit Family Medicine Yariel Cardoza MD [address] [place] [address] [place] [address] Scheduled Procedures Name Priority [...] Documents on File Type Date Recorded Patient Mini Shifter Expl 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 Directive Advanced Directive Advanced Directive Care Teams Shrimp Peeler Relationship Specialty Start Date End Date Yariel Cardoza MD [address] [place] [address] [place] [address] PCP - General Family Medicine 12/01/18 documented as of this encounter
--- OUTSIDE RECORDS SUMMARY | 2023-06-07 07:45 | External Medical Summary | Summary of Care ---
Author Name Unknown Organization [place] [address] Care Team Providers Care Gas Main Fitter Name Role Phone Leanne Cardoza MD Primary Care Provide r Reason for Visit * Reason Comments eRx-Medication Refill Encounter Details Date Type Department Care Team Description 02/01/2022 Refill Family [address] [place] [address] Jade Castillo MD [address] [place] [address] [place] [phone] Allergies Active Allergy Reactions Severity Noted Date Comments Adhesive Tape 06/29/2003 Sensitive to Naproxen Hives 05/28/2015 Ivp Dye Hives 08/20/2000 Latex Other (Please comment) 01/05/2015 Contact rash Ibuprofen Rash 01/05/2015 documented as of this encounter (statuses as of 02/02/2022) Medications Medication Sig Dispensed Refills Start Date [...] pain 120 Cap 5 1 Active Nystatin 575312 UNIT/GM External Powder (Nystop)Indications :Candidal skin infection APPLY TOPICALLY TO AFFECTED AREA 3 TIMES A DAY. 45 g 1 1 Active hydroCHLOROthiazide 25 MG Oral Tablet (Hydrodiuril) TAKE 1 TABLET BY MOUTH EVERY DAY 90 Tab 3 1 Active Meclizine HCl 25 MG Oral [...] MOUTH EVERY DAY 180 Capsule 1 1 Active Clopidogrel Bisulfate 75 MG Oral Tablet (pLAVix)Indications :Stenosis of right vertebral artery,TIA (transient ischemic attack) TAKE 1 TABLET BY MOUTH EVERY DAY 90 Tablet 2 1 Active Atorvastatin Calcium 40 MG Oral Tablet (Lipitor) TAKE 1 TABLET BY MOUTH EVERY DAY 90 Tablet 1 1 Active Ondansetron 4 MG Oral Tablet [...] EVERY DAY 90 Tablet 3 2 Active Potassium Chloride ER 10 MEQ Oral Tablet Extended Release TAKE 1 TABLET BY MOUTH EVERY DAY 90 Tab 2 1 02/03/20 22 Discontinued documented as of this encounter (statuses as of 02/02/2022) Active Problems Problem Noted Date Prediabetes 12/18/2021 [...] as of this encounter (statuses as of 02/02/2022) Resolved Problems Problem Noted Date Resolved Date [...] as of this encounter (statuses as of 02/02/2022) Immunizations Name Administration Dates Next Due COVID-19 mRNA, LNP-s, No Pre serve, 2-Dose Series ([employer]) 09/13/2021,12/16/2020,11/25/2020 Pneumococcal Conjugate Vacc, 13 Valent (Prevnar) [...] encounter Miscellaneous Notes * Telephone Encounter - Nina Sandy [facility] - 02/02/2022 12:43 PM EDT Signed Prescriptions: Disp Refills Potassium Chloride ER 10 MEQ Oral Tablet E*90 Tab*3 Sig: TAKE 1 TABLET BY MOUTH EVERY DAYAuthorizing Provider: LEANNE CARDOZAOrderronald User: NINA SANDY documented in this encounter Plan of Treatment Upcoming Encounters Date Type Specialty Care Team Description 06/22/2022 Office Visit Family Medicine Leanne Cardoza MD [address] [place] [address] [place] [address] Scheduled Procedures Name Priority [...] Documents on File Type Date Recorded Patient Enforcement Safety Officer Expl 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 Directive Advanced Directive Advanced Directive Care Teams Gas Main Fitter Relationship Specialty Start Date End Date Leanne Cardoza MD [address] [place] [address] [place] [address] PCP - General Family Medicine 12/01/18 documented as of this encounter
--- OUTSIDE RECORDS SUMMARY | 2023-06-07 07:46 | External Medical Summary | Summary of Care ---
Author Name Unknown Organization [place] [address] Care Team Providers Care [employer]oid [employer] Teacher Name Role Phone Yariel Cardoza MD Primary Care Provide r Reason for Visit * Reason Comments Outpatient Testing Encounter Details Date Type Department Care Team Description 11/28/2021 Laboratory Laboratory [address] [place] [address] [facility] [address] [place] [address] Intestinal obstruction, unspecified cause, unspecified whether partial or complete (HCC); Encounter for long-term (current) use of other medications; Dyslipidemia, goal LDL below 100; HTN, goal below 140/90; Prediabetes; Thyroid nodule Allergies Active Allergy Reactions Severity Noted Date Comments Adhesive Tape 06/29/2003 Sensitive to Naproxen Hives 05/28/2015 Ivp Dye Hives 08/20/2000 Latex Other (Please comment) 01/05/2015 Contact rash Ibuprofen Rash 01/05/2015 documented as of this encounter (statuses as of 11/28/2021) Medications Medication Sig Dispensed Refills Start Date [...] pain 120 Cap 5 12/22/2020 Active Nystatin 640991 UNIT/GM External Powder (Nystop)Indications: Candidal skin infection [...] as of this encounter (statuses as of 11/28/2021) Active Problems Problem Noted Date Peripheral vascular disease 10/16/2021 Thyroid nodule 10/16/2021 [...] as of this encounter (statuses as of 11/28/2021) Resolved Problems Problem Noted Date Resolved Date [...] as of this encounter (statuses as of 11/28/2021) Immunizations Name Administration Dates Next Due COVID-19 mRNA, LNP-s, No Pre serve, 2-Dose Series ([employer]) 09/13/2021,12/16/2020,11/25/2020 Pneumococcal Conjugate Vacc, 13 Valent (Prevnar) [...] Encounters Date Type Specialty Care Team Description 12/18/2021 Scheduled Telephone [facility] Corrina Layne, RN 132 [place] [phone] 06/22/2022 Office Visit Family Medicine Yariel Cardoza MD [address] [place] [address] [place] [phone] Pending Results Name Type Priority Associated Diagnoses Date /Time MAGNESIUM Lab Routine Encounter for long-term (current) use of other medications 11/28/2021 9:08 AM EST LIPID PANEL WITH DIRECT LDL IF TG IS HIGH Lab Routine Dyslipidemia, goal LDL below 100 11/28/2021 9:08 AM EST COMPREHENSIVE METABOLIC PANEL Lab STAT HTN, goal below 140/90 Dyslipidemia, goal LDL below 100 11/28/2021 9:08 AM EST HEMOGLOBIN A1C Lab Routine Prediabetes 11/28/2021 9:08 AM EST TSH WITH FREE T4 IF INDICATED Lab Routine Thyroid nodule 11/28/2021 9:08 AM EST Scheduled Procedures Name Priority Associated Diagnoses Date/Ti me COLONOSCOPY FLEXIBLE PROXIMAL DIAGNOSTIC Recall History of colon polyps Health Maintenance Due Date Last Done Comments Zoster Vaccines (1 of 2) 1993 *ADVANCE DIRECTIVE NOT ON FILE 12/23/2015 Depression Screening, Annual for Pts 12 and Over 08/11/2020 08/11/2019 BASIC METABOLIC PANEL (BMP) FOR HTN YEARLY 06/06/2022 06/06/2021, 12/26/2020, 09/22/2020, Additional history exists Dexa Scan 08/17/2022 08/17/2015 O2 ASSESSMENT COMPLETED IN PAST YEAR FOR COPD 11/20/2022 11/20/2021 DIABETES SCREEN EVERY 3 YRS-AGE 45 AND ABOVE 06/06/2024 06/06/2021, 12/26/2020, 12/26/2020, Additional history exists COLONOSCOPY-EVERY 3 YRS [...] as of this encounter Visit Diagnoses Diagnosis Intestinal obstruction, unspecified cause, unspecified whether partial or complete (HCC) Encounter for long-term (current) use of other medications Dyslipidemia, goal LDL below 100 Other and unspecified hyperlipidemia HTN, goal below 140/90 Unspecified essential hypertension Prediabetes Other abnormal glucose Thyroid nodule Nontoxic uninodular goiter documented in this encounter Advance Directives Documents on File Type Date Recorded Patient Formula Mixer Expl 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 Directive Advanced Directive Advanced Directive Care Teams [employer] Teacher Relationship Specialty Start Date End Date Yariel Cardoza MD [address] [place] [address] [place] [phone] PCP - General Family Medicine 12/01/18 documented as of this encounter
--- OUTSIDE RECORDS SUMMARY | 2023-06-07 07:46 | External Medical Summary ---
Author Name Unknown Address Unknown Organization K01:[facility] [place] [address] [place] [address] Laboratory Report Ordering Provider Test Date Status SABRA PERDOMO 11/28/2021 09:08:39 Final Observation Date Value Abnormality Reference (Units ) Status BUN 11/28/2021 09:08:39 17 6-20 (mg/dL) Final Creatinine 11/28/2021 09:08:39 0.8 0.5-1.0 (mg/dL) Final Glomerular filtration rate/1.73 sq M.predicted [Volume Rate/Area] in Serum, Plasma or Blood by Creatinine-based formula (CKD-EPI) 11/28/2021 09:08:39 74 >=60 (mL/min) Final Performing Location LABORATORY [facility] - [address] [place] [address]
--- OUTSIDE RECORDS SUMMARY | 2023-06-07 07:46 | External Medical Summary | Summary of Care ---
Author Name Unknown Organization [place] [address] Care Team Providers Care Audiovisual Aids Technician Name Role Phone Yariel Cardoza MD Primary Care Provide r Encounter Details Date Type Department Care Team Description 12/04/2021 Scan Encounter Family Medicine [address] [place] [address] Yariel Cardoza MD [address] [place] [address] [place] [address] <No scans attached> Allergies Active Allergy Reactions Severity Noted Date Comments Adhesive Tape 06/29/2003 Sensitive to Naproxen Hives 05/28/2015 Ivp Dye Hives 08/20/2000 Latex Other (Please comment) 01/05/2015 Contact rash Ibuprofen Rash 01/05/2015 documented as of this encounter (statuses as of 12/06/2021) Medications Medication Sig Dispensed Refills Start Date [...] pain 120 Cap 5 12/22/2020 Active Nystatin 932686 UNIT/GM External Powder (Nystop)Indications: Candidal skin infection [...] as of this encounter (statuses as of 12/06/2021) Active Problems Problem Noted Date Peripheral vascular [...] as of this encounter (statuses as of 12/06/2021) Resolved Problems Problem Noted Date Resolved Date [...] as of this encounter (statuses as of 12/06/2021) Immunizations Name Administration Dates Next Due COVID-19 mRNA, LNP-s, No Pre serve, 2-Dose Series ([employer]) 09/13/2021,12/16/2020,11/25/2020 Pneumococcal Conjugate Vacc, 13 Valent (Prevnar) [...] 12/18/2021 Scheduled Telephone [facility] Corrina Layne RN [address] [place] [phone] 06/22/2022 Office Visit Family Medicine Yariel Cardoza MD [address] [place] [address] [place] [phone] Scheduled Procedures Name Priority Associated Diagnoses Date/Ti [...] 11/28/2022 11/28/2021, 06/06/2021, 12/26/2020, Additional history exists COLONOSCOPY-EVERY 3 YRS [...] Documents on File Type Date Recorded Patient Pipe Processor Expl 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 Directive Advanced Directive Advanced Directive Care Teams Audiovisual Aids Technician Relationship Specialty Start Date End Date Yariel Cardoza MD [address] [place] [address] [place] [phone] PCP - General Family Medicine 12/01/18 documented as of this encounter
--- OUTSIDE RECORDS SUMMARY | 2023-06-07 07:46 | External Medical Summary | Summary of Care ---
Author Name Unknown Organization [place] [address] Care Team Providers Care Executive Admin Name Role Phone Yariel Cardoza MD Primary Care Provide r Encounter Details Date Type Department Care Team Description 12/12/2021 Documentation [facility], [facility] [address] [place] [address] Corrina Layne RN 132 [facility] [place] [address] Allergies Active Allergy Reactions Severity Noted Date Comments Adhesive Tape 06/29/2003 Sensitive to Naproxen Hives 05/28/2015 Ivp Dye Hives 08/20/2000 Latex Other (Please comment) 01/05/2015 Contact rash Ibuprofen Rash 01/05/2015 documented as of this encounter (statuses as of 12/12/2021) Medications Medication Sig Dispensed Refills Start Date [...] pain 120 Cap 5 12/22/2020 Active Nystatin 367427 UNIT/GM External Powder (Nystop)Indications: Candidal skin infection [...] as of this encounter (statuses as of 12/12/2021) Active Problems Problem Noted Date Peripheral vascular [...] as of this encounter (statuses as of 12/12/2021) Resolved Problems Problem Noted Date Resolved Date [...] as of this encounter (statuses as of 12/12/2021) Immunizations Name Administration Dates Next Due COVID-19 [...] Progress Notes * Corrina Layne RN - 12/12/2021 10:02 AM EST [facility] Enrollment Form Screening: Referral Source: No data was found Primary Reason for Referral (Select most relevant): No data was found Engagement: Engagement Attempt 1: No data was found Home Information: No data was found Advance Care Planning (ACP): No data was found Has Living Will or Advance Directive: No data was found Anticipated Sub-Program: No data was found Confirmation of Sub-Program Type (by care steam conditioning operator): Focused Care Management (3-9 months) Handoff Information: Current care team notified via: No data was found Current telemonitoring equipment: No data was found documented in this encounter Plan of Treatment Upcoming Encounters Date Type Specialty Care Team Description 12/18/2021 Scheduled Telephone [facility] Corrina Layne RN [address] [place] [address] [place] [address] 06/22/2022 Office Visit Family Medicine Yariel Cardoza MD [address] [place] [address] [place] [phone] Scheduled Procedures Name Priority Associated Diagnoses Date/Ti [...] Documents on File Type Date Recorded Patient Gymnastics Instructor Expl 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 Directive Advanced Directive Advanced Directive Care Teams Executive Admin Relationship Specialty Start Date End Date Yariel Cardoza MD [address] [place] [address] [place] [address] PCP - General Family Medicine 12/01/18 documented as of this encounter
--- OUTSIDE RECORDS SUMMARY | 2023-06-07 07:46 | External Medical Summary ---
Author Name Unknown Address Unknown Organization K01:[facility] [place] [address] [place] [address] Laboratory Report Ordering Provider Test Date Status SABRA PERDOMO 11/28/2021 09:08:39 Final Observation Date Value Abnormality Reference (Units ) Status TSH 11/28/2021 09:08:39 1.26 0.27-4.20 (uIU/mL) Final Performing Location [facility] - [address] [place] [address]
--- OUTSIDE RECORDS SUMMARY | 2023-06-07 07:46 | External Medical Summary ---
Author Name Unknown Address Unknown Organization K01:[facility] - [address] [place] [address] Laboratory Report Ordering Provider Test Date Status SABRA PERDOMO 11/28/2021 09:08:39 Final Observation Date Value Abnormality Reference (Units ) Status Triglyceride 11/28/2021 09:08:39 118 <=174 ( mg/dL) Final Performing Location [facility] - [address] [place] [address]
--- OUTSIDE RECORDS SUMMARY | 2023-06-07 07:46 | External Medical Summary | Summary of Care ---
Author Name Unknown Organization [place] [address] Care Team Providers Care Welding Machine Operator Resistance Name Role Phone Leanne Cardoza MD Primary Care Provide r Reason for Visit * Reason Comments eRx-Medication Refill Encounter Details Date Type Department Care Team Description 11/01/2021 Refill Family [address] [phone] Leanne Cardoza MD [address] [place] [address] [place] [id number] Allergies Active Allergy Reactions Severity Noted Date Comments Adhesive Tape 06/29/2003 Sensitive to Naproxen Hives 05/28/2015 Ivp Dye Hives 08/20/2000 Latex Other (Please comment) 01/05/2015 Contact rash Ibuprofen Rash 01/05/2015 documented as of this encounter (statuses as of 11/01/2021) Medications Medication Sig Dispensed Refills Start Date [...] pain 120 Cap 5 1 Active Nystatin 706237 UNIT/GM External Powder (Nystop)Indications :Candidal skin infection APPLY TOPICALLY TO AFFECTED AREA 3 TIMES A DAY. 45 g 1 1 Active hydroCHLOROthiazide 25 MG Oral Tablet (Hydrodiuril) TAKE 1 TABLET BY MOUTH EVERY DAY 90 Tab 3 1 Active Potassium Chloride ER 10 MEQ Oral Tablet Extended Release TAKE 1 TABLET BY MOUTH EVERY DAY 90 Tab 2 1 Active Meclizine HCl 25 MG Oral [...] AT BEDTIME 90 Tablet 1 2 Active Amitriptyline HCl 25 MG Oral Tablet (Elavil) Take 1 Tab by mouth at bedtime. 90 Tab 1 1 11/01/19 22 Discontinued documented as of this encounter (statuses as of 11/01/2021) Active Problems Problem Noted Date Peripheral vascular [...] as of this encounter (statuses as of 11/01/2021) Resolved Problems Problem Noted Date Resolved Date [...] as of this encounter (statuses as of 11/01/2021) Immunizations Name Administration Dates Next Due COVID-19 mRNA, LNP-s, No Pre serve, 2-Dose Series ([employer]) 09/13/2021,12/16/2020,11/25/2020 Pneumococcal Conjugate Vacc, 13 Valent (Prevnar) [...] Telephone Encounter - Vipul Apple RPh - 11/01/2021 3:26 PM EST Signed Prescriptions: Disp Refills Amitriptyline HCl 25 MG Oral Tablet (Elavi*90 Tab*1 Sig: TAKE 1 TABLET BY MOUTH EVERYDAY AT BEDTIMEAuthorizing Provider: LEANNE CARDOZAOrderronald User: VIPUL APPLE documented in this encounter Plan of Treatment Upcoming Encounters Date Type Specialty Care Team Description 11/20/2021 Home Visit [facility] Corrina Layne RN 132 [facility] [place] [address] 06/22/2022 Office Visit Family Medicine Leanne Cardoza MD [address] [place] [address] [place] [phone] Scheduled Procedures Name Priority Associated Diagnoses Date/Ti me COLONOSCOPY FLEXIBLE PROXIMAL DIAGNOSTIC Recall History of colon polyps Health Maintenance Due Date Last Done Comments Zoster Vaccines (1 of 2) 1993 *ADVANCE DIRECTIVE NOT ON FILE 12/23/2015 Depression Screening, Annual for Pts 12 and Over 08/11/2020 08/11/2019 Dexa Scan 08/17/2022 08/17/2015 DIABETES SCREEN EVERY 3 YRS-AGE 45 AND [...] Documents on File Type Date Recorded Patient Yarn Twister Expl 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 Directive Advanced Directive Advanced Directive Care Teams Welding Machine Operator Resistance Relationship Specialty Start Date End Date Leanne Cardoza MD [address] [place] [address] [place] [id number] PCP - General Family Medicine 12/01/18 documented as of this encounter
--- OUTSIDE RECORDS SUMMARY | 2023-06-07 07:46 | External Medical Summary | Summary of Care ---
Author Name Unknown Organization [place] [address] Care Team Providers Care Barrel Dedenting Machine Operator Name Role Phone Yariel Cardoza MD Primary Care Provide r Reason for Visit * Reason Comments [facility]: Maintenance Encounter Details Date Type Department Care Team Description 11/20/2021 Home Visit [facility], [facility] [address] [place] [address] Corrina Layne RN 132 [facility] [place] [address] Allergies Active Allergy Reactions Severity Noted Date Comments Adhesive Tape 06/29/2003 Sensitive to Naproxen Hives 05/28/2015 Ivp Dye Hives 08/20/2000 Latex Other (Please comment) 01/05/2015 Contact rash Ibuprofen Rash 01/05/2015 documented as of this encounter (statuses as of 11/20/2021) Medications Medication Sig Dispensed Refills Start Date [...] pain 120 Cap 5 12/22/2020 Active Nystatin 615896 UNIT/GM External Powder (Nystop)Indications: Candidal skin infection [...] as of this encounter (statuses as of 11/20/2021) Active Problems Problem Noted Date Peripheral vascular [...] as of this encounter (statuses as of 11/20/2021) Resolved Problems Problem Noted Date Resolved Date [...] as of this encounter (statuses as of 11/20/2021) Immunizations Name Administration Dates Next Due COVID-19 [...] Sign Reading Time Taken Comments Blood Pressure 110/70 11/20/2021 10:30 AM EST Pulse 80 11/20/2021 10:30 AM EST Temperature 36.8 C (98.2 F) 11/20/2021 10:[address] Respiratory Rate 18 11/20/2021 10:30 AM EST Oxygen Saturation 95% 11/20/2021 10:30 AM EST Inhaled Oxygen Concentration - - Weight - - Height - - Body Mass Index - - documented in this encounter Progress Notes * Corrina Layne, SELENE - 11/20/2021 11:53 AM EST [facility] Stock Feeder Monthly Visit Date: 11/20/2021 Time: 11:54 AM Name: Jayla Hayes : 1945 Current Concerns: Patient being seen for routine home visit related to COPD, IBS. Per patient, breathing is at baseline. She is taking all medications as ordered. Has regular followup scheduled with pulmonology at [facility]. IBS symptoms also at baseline. Intermittent gas and bloating depending on what she eats. Has had previous instruction from RD and knows what foods will exacerbate symptoms. No recent utilization for COPD. Pt did have hospitalization 08/28/21 for pseudo- bowel obstruction. Pt follows with GI at [facility] also. No further problems since coming home. Moving bowels on regular basis. Uses miralax bid. Will schedule phone call in 3-4 weeks and plan for standby if no acute/ongoing issues that require [facility] home visits. Discussed with patient who is agreeable. Physical Exam: BP 110/70 (BP Site: Left Arm, BP Position: Sitting, BP Cuff Size: Regular) | Pulse 80 | Temp 36.8 C (98.2 F) (Infrared ) | Resp 18 | SpO2 95% Pain 0 Physical Exam Cardiovascular: Rate and Rhythm: Normal rate. Pulses: Normal pulses. Pulmonary: Effort: Pulmonary effort is normal. Breath sounds: Normal breath sounds. Abdominal: General: Bowel sounds are normal. There is distension (mild soft distention). Palpations: Abdomen is soft. Musculoskeletal: Right lower [...] Patient Well Being: PHQ2/9: No questionnaires available. WNL- no symptoms of depression/anxiety not controlled by medication. Has good family support. Advanced Care Planning: Living Will. -5 wishes on file Patient's Goals of Care: 1. to stay out of the hospital 2. to spend time with family 3.get GI sxs under better control-IBS Reinforcement/Education: COPD: Pt instructed to: -Call with [...] Reinforced medication regimen. Timing., Dosing. and Purspose. Treatment/Plan: Continue nebulizers/inhaled medications as ordered. Follow nebs with flutter valve x 10 Avoid any respiratory irritants. Stay up to date with flu, covid vaccines/boosters. Small frequent meals Avoid gas causing foods miralax bid Notify provider if no bm >3 days , abd pain, n/v Call [facility] for any red flag sxs, questions, concerns Phone follow up in 3-4 weeks and transition to standby if still stable. Home Interventions Provided: Reinforced current Plan of Care, including self-management and medication regimen Patient's 'Red Flags': 1. Increased sob above baseline 2. Increased cough, sob, wheezing not relieved by nebs 3. fever Patient Needs to Remember: Call [facility] at with any new or worsening health concerns or problems, red flag symptoms. Referrals Needed: none Follow Up: Is there cellular connectivity/connectivity in the home? No Does the patient have internet in the home? Yes Patient encouraged to call the intake phone number for all urgent but not emergent issues. Is the patient new to [facility] within the last 30 days? No, Assess appropriateness for upcoming telehealth visits. Cancel telehealth visits & schedule home visit with care bioinformatics team member(s)as indicated. Provider is in agreement with Plan of Care: Yes Scheduled to follow up with patient in 1 month or sooner if needed. . Corrina Layne RN 11/20/2021 11:54 AM documented in this encounter Miscellaneous Notes * ACP (Advance Care Planning) - Corrina Layne RN - 11/20/2021 12:09 PM EST Patient-centered Communication 11/20/2021 The patient/surrogate voluntarily agreed to participate in advance care planning discussion. patient would want her Alverto and/ or daughter, Irina to be decision makers if she was unable. Location: Home Individual(s) present for conversation: Patient and Spouse Decisions Additional Comments Discerning What Matters Most to the Patient: Their current SYMPTOMS include:: Tiredness; Depression; Anxiety; Shortnes of breath (11/20/2021 12:07 PM) They say their illness has CHANGED THEIR LIFE by: : Less enjoyment (quality of life); Financial strain/stress (11/20/2021 12:07 PM) The patient thinks COMPLICATIONS in the future may be:: More hospitalizations; More fatigue (11/20/2021 12:07 PM) Was PROGNOSIS discussed?: No (11/20/2021 12:07 PM) The patient's HOPES are:: Maintain current functional abilities; Avoid further hospitalization; Avoid intubation/mechanical ventilation; Avoid the fdc; Avoid symptoms (11/20/2021 12:07 PM) Avoid symptoms include:: Dyspnea; Fatigue; Pain (11/20/2021 12:07 PM) The patient's FEARS/WORRIES about illness are:: Being a burden to family (11/20/2021 12:07 PM) Source: Content from Respecting Choices Program Aligning Care With What Matters Most: Interventions/Choices:: CPR; Intubation/mechanical ventilation; Non-invasive ventilation or BIPAP; Antibiotic therapy; Artificial nutrition; IV hydration; Chemotherapy; Radiation therapy; Surgical procedure; Blood transfusion; Lab draws; Hospice; Transport; Dialysis; at home (11/20/2021 12:08 PM) Rationale for Decisions Source: Content from Respecting Choices Program 25 minutes spent in direct [id number] discussion today, Corrina Layne, RN documented in this encounter Plan of Treatment Upcoming Encounters Date Type Specialty Care Team Description 06/22/2022 Office Visit Family Medicine Yariel Cardoza MD [address] [place] [address] [place] [address] Scheduled Procedures Name Priority [...] ASSESSMENT COMPLETED IN PAST YEAR FOR COPD 10/16/2022 10/16/2021 DIABETES SCREEN EVERY 3 YRS-AGE 45 AND [...] Documents on File Type Date Recorded Patient Unit Aid Expl 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 Directive Advanced Directive Advanced Directive Care Teams Barrel Dedenting Machine Operator Relationship Specialty Start Date End Date Yariel Cardoza MD [address] [place] [address] [place] [address] PCP - General Family Medicine 12/01/18 documented as of this encounter"
--- OUTSIDE RECORDS SUMMARY | 2023-06-07 07:46 | External Medical Summary ---
Author Name Unknown Address Unknown Organization K01:[facility] [place] - [address] [place] [address] Laboratory Report Ordering Provider Test Date Status SABRA PERDOMO 11/28/2021 09:08:39 Final Observation Date Value Abnormality Reference (Units ) Status HbA1C 11/28/2021 09:08:39 6.1 Above high normal 4. 0-5.6 (%) Final Performing Location [facility] - [address] [place] [address]
--- OUTSIDE RECORDS SUMMARY | 2023-06-07 07:46 | External Medical Summary | Summary of Care ---
Author Name Unknown Organization [place] [address] Care Team Providers Care Snuff Container Inspector Name Role Phone Yariel Cardoza MD Primary Care Provide r Reason for Visit * Reason Comments Patient Assistance Program Encounter Details Date Type Department Care Team Description 12/15/2021 Pharmacy Pharmacy, [facility] [address] [place] [address] [place], Pharmacy Memory Care Director [address] [facility] [place] [address] COPD, severe (HCC)* Allergies Active Allergy Reactions Severity Noted Date Comments Adhesive Tape 06/29/2003 Sensitive to Naproxen Hives 05/28/2015 Ivp Dye Hives 08/20/2000 Latex Other (Please comment) 01/05/2015 Contact rash Ibuprofen Rash 01/05/2015 documented as of this encounter (statuses as of 12/18/2021) Medications Medication Sig Dispensed Refills Start Date [...] pain 120 Cap 5 12/22/2020 Active Nystatin 307200 UNIT/GM External Powder (Nystop)Indications: Candidal skin infection [...] as of this encounter (statuses as of 12/18/2021) Active Problems Problem Noted Date Peripheral vascular [...] as of this encounter (statuses as of 12/18/2021) Resolved Problems Problem Noted Date Resolved Date [...] as of this encounter (statuses as of 12/18/2021) Immunizations Name Administration Dates Next Due COVID-19 [...] of this encounter Progress Notes * VIRA Weaver - 12/15/2021 12:54 PM EST Patient Call Message received new referral Message:Patient seen at husbands visit Questioning if she qualifies for patient assistance program for her Anora Inhaler as it is unaffordable otherwise Also provided number for [facility]ACE Please assist. Radha Redmond RPh, Pharm D Clinicial Pharmacist 12/14/2021, 3:40 PM Details: Pharmacy Insurance:[facility] Anni documented in this encounter Plan of Treatment Upcoming Encounters Date Type Specialty Care Team Description 06/22/2022 Office Visit Family Medicine Yariel Cardoza MD [address] [place] [address] [place] [phone] Scheduled Procedures Name Priority Associated Diagnoses Date/Ti [...] Documents on File Type Date Recorded Patient Locator Expl 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 Directive Advanced Directive Advanced Directive Care Teams Snuff Container Inspector Relationship Specialty Start Date End Date Yariel Cardoza MD [address] [place] [address] [place] [address] PCP - General Family Medicine 12/01/18 documented as of this encounter
--- OUTSIDE RECORDS SUMMARY | 2023-06-07 07:46 | External Medical Summary | Summary of Care ---
Author Name Unknown Organization [place] [address] Care Team Providers Care Critical Care Educator Name Role Phone Yariel Cardoza MD Primary Care Provide r Reason for Visit * Reason Onset Date Comments Encounter Created in Error 12/13/2021 Encounter Details Date Type Department Care Team Description 12/13/2021 Telephone RN NURSE TRIAGE [address] [place] [address] Rose Saul RN Encounter Created in Error Allergies Active Allergy Reactions Severity Noted Date Comments Adhesive Tape 06/29/2003 Sensitive to Naproxen Hives 05/28/2015 Ivp Dye Hives 08/20/2000 Latex Other (Please comment) 01/05/2015 Contact rash Ibuprofen Rash 01/05/2015 documented as of this encounter (statuses as of 12/13/2021) Medications Medication Sig Dispensed Refills Start Date [...] pain 120 Cap 5 12/22/2020 Active Nystatin 317689 UNIT/GM External Powder (Nystop)Indications: Candidal skin infection [...] as of this encounter (statuses as of 12/13/2021) Active Problems Problem Noted Date Peripheral vascular [...] as of this encounter (statuses as of 12/13/2021) Resolved Problems Problem Noted Date Resolved Date [...] as of this encounter (statuses as of 12/13/2021) Immunizations Name Administration Dates Next Due COVID-19 [...] encounter Miscellaneous Notes * Telephone Encounter - Rose Saul RN - 12/13/2021 6:49 PM EST Calling for her daughter documented in this encounter Plan of Treatment Upcoming Encounters Date Type Specialty Care Team Description 12/18/2021 Scheduled Telephone [facility] Corrina Layne RN 132 [facility] [place] [address] 06/22/2022 Office Visit Family Medicine Yariel Cardoza MD [address] [place] [address] [place] [phone] Scheduled Procedures Name Priority Associated Diagnoses Date/Ti [...] Documents on File Type Date Recorded Patient Quality Control Microbiology Supervisor Expl 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 Directive Advanced Directive Advanced Directive Care Teams Critical Care Educator Relationship Specialty Start Date End Date Yariel Cardoza MD [address] [place] [address] [place] [phone] PCP - General Family Medicine 12/01/18 documented as of this encounter
--- OUTSIDE RECORDS SUMMARY | 2023-06-07 07:46 | External Medical Summary ---
Author Name Unknown Address Unknown Organization K01:[facility] - [address] [place] [address] Laboratory Report Ordering Provider Test Date Status ROQUE QUIROZ 11/28/2021 09:08:39 Final Observation Date Value Abnormality Reference (Units ) Status Magnesium 11/28/2021 09:08:39 2.2 1.5-2.6 (m g/dL) Final Performing Location [facility] - [address] [place] [address]
--- OUTSIDE RECORDS SUMMARY | 2023-06-07 07:47 | External Medical Summary | Summary of Care ---
Author Name Unknown Organization [place] [address] Care Team Providers Care Quill Fixer Name Role Phone Yariel Cardoza MD Primary Care Provide r Reason for Referral * Evaluate & Treat - Unlimited Visits (Within 10 days (routine)) - Authorized Specialty Diagnoses / Procedures Referred By Matt cota Referred To Contact Otolaryngology Diagnoses Thyroid nodule Yariel Cardzoa MD [address] [place] [address] [place] [id number] Referral ID Status Reason Start Date Expiration Date Visits Requested Visits Authorized [id number] Authorized Specialty Services Required 10/16/2021 1 1 Question Answer Referral Priority Within 10 days (routine) Reason for Referral: Para/Thyroid Specific Condition: Thyroid Comments [place]. Thyroid nodules. One recommending FNA. Has had biopsy in past. Reason for Visit * Reason Onset Date Comments Re-Check Immunizations 10/16/2021 Shingrix Encounter Details Date Type Department Care Team Description 10/16/2021 Office Visit Family Medicine [address] [place] [id number] Yariel Cardoza MD [address] [place] [address] [place] [id number] Thyroid nodule*; COPD, severe (HCC); Moderate episode of recurrent major depressive disorder (HCC); Peripheral vascular disease (HCC); Severe obesity with body mass index (BMI) of 35.0 to 39.9 with serious comorbidity (HCC); HTN, goal below 140/90; Gastro-esophageal reflux disease without esophagitis; Vertebral artery stenosis, asymptomatic, right; Dyslipidemia, goal LDL below 100; Need for vaccination for zoster; Prediabetes Allergies Active Allergy Reactions Severity Noted Date Comments Adhesive Tape 06/29/2003 Sensitive to Naproxen Hives 05/28/2015 Ivp Dye Hives 08/20/2000 Latex Other (Please comment) 01/05/2015 Contact rash Ibuprofen Rash 01/05/2015 documented as of this encounter (statuses as of 10/16/2021) Medications Medication Sig Dispensed Refills Start Date End Date Status oxygen GASIndications:Hyp oxia Use 2 L/min(Oxygen) as directed continuous. 1 Each 0 7 Active VENTOLIN HFA 108 (90 Base) MCG/ACT inhaler INHALE 2 PUFFS BY MOUTH EVERY 4 HOURS NEEDED FOR WHEEZING. 1 Inhaler 5 8 Active umeclidinium-vilan terol (ANORO ELLIPTA) 62.5-25 MCG/INH AEPB Inhale 1 Puff by mouth daily. 0 Active Dextromethorphan-g uaiFENesin (CORICIDIN HBP CONGESTION/COUGH) [...] 0 Active Dicyclomine HCl 10 MG Oral CapsuleIndications :Irritable bowel syndrome with both constipation and diarrhea Take 1 Cap by mouth 4 times a day as needed (abdominal pain, cramping). for abdominal pain 120 Cap 5 1 Active Nystatin 722179 UNIT/GM External Powder (Nystop)Indication s:Candidal skin infection APPLY TOPICALLY TO AFFECTED AREA 3 TIMES A DAY. 45 g 1 1 Active hydroCHLOROthiazid e 25 MG Oral Tablet [...] DIZZINESS/VERT IGO 10 Tab 0 1 Active Losartan Potassium 50 MG Oral Tablet (Cozaar)Indication s:HTN, goal below 140/90 Take 1 Tab by mouth daily. 30 Tab 5 1 Active Bisacodyl 5 MG Oral Tablet Delayed Release (Dulcolax) Take 10 mg by mouth at bedtime. 0 Active Naphazoline-Phenir amine 0.025-0.3 % Ophthalmic Solution (Naphcon-A)Indicat ions:1-2 drops each eye as needed for eye irritation 1 Drop 3 times a day. Indications: 1-2 drops each eye as needed for eye irritation 0 Active Polyethylene Glycol 3350 17 GM/SCOOP Oral Powder (MiraLax) Take 17 g by mouth 2 times a day. 0 Active Amitriptyline HCl 25 MG Oral Tablet (Elavil) Take 1 Tab by mouth at bedtime. 90 Tab 1 1 Active Omeprazole 20 MG Oral Capsule Delayed [...] 1 Active Atenolol 25 MG Oral Tablet (Tenormin)Indicati [...] A DAY. 120 mL 5 2 Active Azithromycin 250 MG Oral Tablet (Zithromax Z-Nilson)Indications: COPD with acute bronchitis (HCC) Take two tablets by mouth on first day, then 1 tablet daily until gone 6 Tablet 0 1 10/16/19 22 Discontinued Budesonide 0.5 MG/2ML Inhalation Suspension (Pulmicort) INHALE ONE UNIT DOSE VIAL VIA NEBULIZER TWO TIMES A DAY. 60 mL 3 1 10/16/19 22 Discontinued(Re fill) documented as of this encounter (statuses as of 10/16/2021) Active Problems Problem Noted Date Peripheral vascular [...] as of this encounter (statuses as of 10/16/2021) Resolved Problems Problem Noted Date Resolved Date [...] as of this encounter (statuses as of 10/16/2021) Immunizations Name Administration Dates Next Due COVID-19 [...] Sign Reading Time Taken Comments Blood Pressure 144/88 10/16/2021 4:04 PM EST Pulse 76 10/16/2021 4:04 PM EST Temperature 36.4 C (97.6 F) 10/16/2021 4:04 PM ES T Respiratory Rate - - Oxygen Saturation 93% 10/16/2021 4:04 PM EST Inhaled Oxygen Concentration - - Weight 91.8 kg (202 lb 6.4 oz) 10/16/2021 4:04 P M EST Height - - Body Mass Index 38.24 06/20/2021 9:03 AM EDT documented in this encounter Patient Instructions * Patient Instructions* Yariel Cardoza MD - 10/16/2021 4:27 PM EST ~~PATIENT INSTRUCTIONS FOR SHINGRIX VACCINE~~ Possible side effects of Shingrix vaccine, (shingles), are usually mild and can include: 1. Soreness or redness at injection site 2. Low grade fever 3. Body aches You may use a fever / pain reducing medication as needed for these symptoms. LET YOUR DOCTOR KNOW IMMEDIATELY IF YOU HAVE DIFFICULTY BREATHING OR SWALLOWING, EXPERIENCE ITCHINGOF FEET OR HANDS, HAVE SWELLING OF EYES, FACE OR INSIDE OF NOSE. documented in this encounter Progress Notes * Yariel Cardoza MD - 10/16/2021 4:13 PM EST Subjective: Jayla Hayes is a 76 year old female. who presents for routine follow-up HPI: Brief Clinical History Ms. Hayes is a 76 year old woman last seen in Family Medicine 2 weeks ago (09-27-21). She is due for eval of COPD, severe (HCC), Moderate episode of recurrent major depressive disorder (HCC), Peripheral vascular disease (HCC), and Severe obesity with body mass index (BMI) of 35.0 to 39.9 with serious comorbidity (HCC). Was sick in September and lasted through New Years. Had a pretty bad cough and coughed up a lot of mucus. Flu A/B/RSV/COVID negative. Had 2 chest x-rays and they were normal. Has h/o thyroid nodules. Has had biopsy in 2019 that was benign but the ENT left the area. Would like to get scheduled for follow-up again. Had colonoscopy in 08/2021. Was told she had a hernia. Thinks umbilical. Bowels are moving well. Gets a sharp cramp and takes dicyclomine as needed and it helps. Follows with Dr. Low. Not checking blood pressure. Breathing has been OK. Has been using budesonide twice a day for a while but did not get enough fora whole month the last time she picked it up. Had been prescribed by pulmonary but her doctor retired and she just got a new one. Is seen at [facility]. Next appointment is in December or January. 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 360 mL 1 Dicyclomine HCl 10 MG Oral Capsule Take 1 Cap by mouth 4 times a day as needed (abdominal pain,cramping). for abdominal pain 120 Cap 5 Nystatin 975743 UNIT/GM External Powder (Nystop) APPLY TOPICALLY TO AFFECTED AREA 3 TIMES A DAY. 45 g 1 hydroCHLOROthiazide 25 MG Oral Tablet (Hydrodiuril) TAKE 1 TABLET BY MOUTH EVERY DAY 90 Tab 3 Potassium Chloride ER 10 MEQ Oral Tablet Extended Release TAKE 1 TABLET BY MOUTH EVERY DAY 90 Tab 2 Meclizine HCl 25 MG Oral Tablet (Antivert) [...] g by mouth 2 times a day. Amitriptyline HCl 25 MG Oral Tablet (Elavil) Take 1 Tab by mouth at bedtime. 90 Tab 1 Omeprazole 20 MG Oral Capsule Delayed Release (PriLOSEC) TAKE 2 CAPSULES BY MOUTH EVERY DAY 180Capsule 1 Clopidogrel Bisulfate 75 MG Oral Tablet (pLAVix) TAKE 1 TABLET BY MOUTH EVERY DAY 90 Tablet 2 Atorvastatin Calcium 40 MG Oral Tablet (Lipitor) TAKE 1 TABLET BY MOUTH EVERY DAY 90 Tablet 1 Ondansetron 4 MG Oral Tablet Disintegrating Place 1 Tablet on tongue every 8 hours as needed for Nausea. 30 Tablet 0 Benzonatate 100 MG Oral Capsule (Tessalon Perles) Take 1 Capsule by mouth 3 times a day as needed for Cough. 30 Capsule 1 Atenolol 25 MG Oral Tablet (Tenormin) TAKE 1 TABLET BY MOUTH EVERY DAY 90 Tablet 1 Zoster Vac Recomb Adjuvanted 50 MCG/0.5ML Intramuscular Suspension Reconstituted (Shingrix) Inject 0.5 mL into a large muscle now and repeat dose in 60 to 180 days 1 Each 0 Budesonide 0.5 MG/2ML Inhalation Suspension (Pulmicort) INHALE ONE UNIT DOSE VIAL VIA NEBULIZERTWO TIMES A DAY. 120 mL 5 Azithromycin 250 MG Oral Tablet (Zithromax Z-Nilson) Take two tablets by mouth on first day, then 1 tablet daily until gone 6 Tablet 0 No current facility-administered medications for this visit. 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 BENIGN HYPERTENSION 01/28/2002 Bilateral carpal tunnel syndrome 07/20/2015 COPD (chronic obstructive pulmonary disease) ([facility]) COPD, severe ([facility]) 12/21/2015 COPD, severity to be determined ([facility]) 07/20/2015 Dyslipidemia, goal LDL below 100 10/16/2015 Dyslipidemia, goal LDL below 130 08/22/2015 FAM HX-CARDIOVAS DIS NEC 01/28/2002 Generalized osteoarthritis 08/22/2015 GERD (gastroesophageal reflux disease) 07/20/2015 Hypertrophy of breast 08/31/2003 IBS (irritable bowel syndrome) 07/20/2015 Kidney disease, chronic, stage III (GFR 30-59 ml/min) ([facility]) 10/16/2015 Kidney stone Lumbar degenerative disc disease 02/06/2016 Lumbar facet arthropathy ([facility]) 02/06/2016 Lumbar spinal stenosis 02/18/2017 Mixed incontinence urge and stress (male)(female) 07/20/2015 Multiple thyroid nodules 09/09/2016 Obesity, Class II, BMI 35.0-39.9, with comorbidity (see actual BMI) 01/19/2016 Primary osteoarthritis of right knee 02/18/2017 Pulmonary hypertension ([facility]) 05/07/2017 Reflux esophagitis 01/28/2002 Slow transit constipation 07/20/2015 Thyroid nodule 09/05/2016 Tubular adenoma of colon 07/20/2015 Urge incontinence 05/03/2004 Urinary, incontinence, stress female 02/21/2016 Past Surgical History: Procedure Laterality Date ARTHROCENT ASP &/OR INJ MAJOR JX/BURSA W/O US 04/06/2019 ARTHROCENTESIS OR INJECTION MAJOR JOINT performed by Todd Kunz, DO at OR [facility] BIOPSY OF BREAST, OPEN 1971 benign, right, removed nipple for blocked milk glands BIOPSY OF BREAST, OPEN 1976 left, benign BREAST SURGERY PROCEDURE NEC bilateral Breast Reduction 09/20/03 BUNION CORRECTED WITH DOUBLE OSTEOTOMY 1991 right foot COLONOSCOPY, DIAGNOSTIC (RECTUM) 03/08/2015 adenomatous polyps, repeat 3 yrs/[facility] COLONOSCOPY, DIAGNOSTIC (RECTUM) 03/26/2018 adenomatous & serrated adenomatous polyps, repeat 3 yrs/[facility] EGD, FLEXIBLE, DIAGNOSTIC 01/21/2015 sm HH/[facility] EGD, FLEXIBLE, DIAGNOSTIC 07/22/2018 mild gastritis, Schatzki ring, duodenal polyp/[facility] ESOPHAGOSCOPY RIGID TRANSORAL HYPOPHARYNX ESOPHAGUS 2004 repair of Zenker's diverticulum [facility] DIGITAL BREAST TOMOSYNTHESIS; BILATERAL Bilateral 12/2019 category 2 benign, repeat 1 year LAPAROSCOPY; CHOLECYSTECTOMY 06/04/2016 laparoscopic cholecystectomy , [facility] Dr. Corey Faulkner MISCELLANEOUS ORDER 2001 implant - right buttocks to control bladder sphinctor MISCELLANEOUS ORDER 1999 oral surgery to fit dentures NON-IMPLANTED PELVIC FLOOR E-STIM, COMPLETE SYSTEM tens right buttock REMOVE TONSILS & ADENOIDS, UNDER 12 RMV LSN SCLP/NCK/EXT 0.6-1.0CM behind ear, many years ago TOTAL ABD HYSTERECTOMY W/WO REMOVAL OF TUBE(S) 1984 both ovaries intact, fibroids Review of patient's allergies indicates: Allergen Reactions Adhesive Tape Sensitive to Aleve [Naproxen] Hives Ivp Dye Hives Latex Other (Please comment) Contact rash Motrin [Ibuprofen] Rash Family History Problem Relation Age of Onset Heart Disorder Father NE age 55 Heart Disorder Mother CAD, 84 in '02 Arthritis Mother in fingers Diabetes Brother half brother Stroke Aunt (Unspecified) 80's Stroke Uncle (Unspecified) 60's Family Status Relation Status Fa at age 55 [place], smoked Mo at age 96 unknown cause Zandra Alive Irina Son Alive Son Alive Bro (Not Specified) AUNT (Not Specified) UNCLE (Not Specified) Social History Tobacco Use Smoking status: Former Smoker Packs/day: 1.75 Years: 38.00 Pack years: 66.50 Types: Cigarettes Quit date: 10/07/1995 Years since quittin.0 Smokeless tobacco: Never Used Tobacco comment: quit in 1995 Substance Use Topics Alcohol use: No Vaping/E-Cigarette Use Vaping/E-Cigarette Substances Vaping/E-Cigarette Devices Results for orders placed or performed in visit on 09/27/21 INFLUENZA A/B RSV SARS-COV2,PCR Result Value Ref Range SARS-CoV-2 (COVID-19) Result Negative Negative Influenza A PCR Result Negative Negative Influenza B PCR Result Negative Negative RSV PCR Result Negative Negative *Note: Due to a large number of results and/or encounters for the requested time period, some results have not been displayed. A complete set of results can be found in Results Review. Hemoglobin AIC Results: Lab Results Component Value Date/Time HEMOGLOBIN A1C - [facility] 6.0 (H) 12/26/2020 08:53 AM HEMOGLOBIN A1C - [facility] 5.7 03/19/2017 08:05 AM Basic Panel Results: Results for orders placed or performed in visit on 06/06/21 BASIC METABOLIC PANEL Result Value Ref Range BUN 15 6 - 20 mg/dL Creatinine 0.8 0.5 - 1.0 mg/dL Estimated Glomerular Filtration Rate 73.6 >=60.0 mL/min Sodium 143 135 - 146 mmol/L Potassium 4.3 3.5 - 5.1 mmol/L Chloride 102 98 - 107 mmol/L CO2 29 22 - 32 mmol/L Anion Gap 12 7 - 15 mmol/L Glucose 93 70 - 120 mg/dL Calcium 9.7 8.4 - 10.2 mg/dL Lipid Panel Results: Results for orders placed or performed in visit on 12/26/20 LIPID PANEL WITHOUT DIRECT LDL Result Value Ref Range Triglycerides 109 <=174 mg/dL Cholesterol 135 <200 mg/dL HDL Cholesterol 41 (L) >49 mg/dL Non-HDL Cholesterol 94 <=159 mg/dL LDL Cholesterol 72 <=129 mg/dL Results for orders placed or performed in visit on 08/18/19 LIPID PANEL WITH DIRECT LDL IF TG ABOVE 150 MG/DL Result Value Ref Range HOURS FASTING NOT FASTING hours Triglycerides 188 (H) 0 - 174 mg/dL Cholesterol 135 <200 mg/dL HDL Cholesterol 34 (L) >49 mg/dL NON-HDL CHOLESTEROL 101 0 - 159 mg/dL LDL Cholesterol (Direct Measure) 70 0 - 129 mg/dL ALT Results: Lab Results Component Value Date/Time ALT - [facility] 22 05/06/2020 10:15 AM ALT - [facility] 22 07/28/2018 02:30 PM ALT - [facility] 16 09/12/2017 10:17 AM ALT-OUTSIDE LAB 21 01/28/2015 12:00 AM Review of Systems: General: No change in weight, No fatigue and No fevers, sweats, or chills Head: No significant headache and No recent significant head injury Eyes: No recent significant change in vision and No eye pain, redness, discharge, or excessive tearing Ears: No recent change in hearing, No tinnitus or vertigo, No ear pain and No ear discharge Nose: No h/o frequent colds or sinusitis and No nasal stuffiness Throat/Oropharynx: No teeth or gum problems and No sore throat Respiratory: No recent change in breathing, + cough and +COPD and recent URI Cardiac: No chest pain, No shortness of breath, No orthopnea, No paroxysmal nocturnal dyspnea, No edema, No palpitations and No syncope Gastrointestinal: No significant heartburn, No significant change in appetite, No nausea, vomiting,diarrhea, or constipation, No blood in stools or black tarry stools, No abdominal pain and +abdominal bloating/occasional sharp abdominal pain Urinary: No urinary frequency, No dysuria and No hematuria Objective: BP 144/88 | Pulse 76 | Temp 36.4 C (97.6 F) | Wt 91.8 kg (202 lb 6.4 oz) | SpO2 93% | BMI 38.24kg/m | BSA 1.99 m Physical Exam: General: alert, no distress, well nourished and well developed Head: Normocephalic, No masses, lesions, tenderness or abnormalities Eye Exam: PERRLA, EOMI, Conjunctiva are pink and non-injected, sclera clear Ears: External ears normal, Canals clear, TM's Normal Neck: supple, no adenopathy, no bruits Heart: regular rate & rhythm, no murmurs and no gallops Lungs: chest symmetric with normal AP diameter, no chest deformities noted, no chest wall tenderness, lungs clear to auscultation but diminished Abdomen: soft, obese, normal bowel sounds. +healed midline lower abdominal incision with partially resected umbilicus. No discrete hernia detected Extremities: no edema, no clubbing, no cyanosis Neuro Exam: alert & oriented x 3 with fluent speech, no focal motor/sensory deficits ASSESSMENT/PLAN: Thyroid nodule (Primary)--has seen ENT in the past and has had biopsy. Unsure if the suspicious nodule on recent ultrasound is the one that was biopsied. Would like to see [facility]. - OTOLARYNGOLOGY REFERRAL OP - TSH WITH FREE T4 IF INDICATED; Future; Expected date: 10/16/2021 COPD, severe (HCC)--stable. Follows with pulmonary. Has had several recent URIs. Refilled budesonide as last Rx was not enough for a whole month. - Budesonide 0.5 MG/2ML Inhalation Suspension (Pulmicort); INHALE ONE UNIT DOSE VIAL VIA NEBULIZER TWO TIMES A DAY. Moderate episode of recurrent major depressive disorder (HCC)--continue amitriptyline. Peripheral vascular disease (HCC)--stable Severe obesity with body mass index (BMI) of 35.0 to 39.9 with serious comorbidity (HCC) HTN, goal below 140/90--mildly elevated today but has been controlled. - COMPREHENSIVE METABOLIC PANEL; Future; Expected date: 10/16/2021 Gastro-esophageal reflux disease without esophagitis--continue PPI Vertebral artery stenosis, asymptomatic, right--continue Plavix and statin. Dyslipidemia, goal LDL below 100--continue high intensity statin. Return for labs. - LIPID PANEL WITH DIRECT LDL IF TG IS HIGH; Future; Expected date: 10/16/2021 - COMPREHENSIVE METABOLIC PANEL; Future; Expected date: 10/16/2021 Need for vaccination for zoster - Zoster Vac Recomb Adjuvanted 50 MCG/0.5ML Intramuscular Suspension Reconstituted (Shingrix); Inject 0.5 mL into a large muscle now and repeat dose in 60 to 180 days Prediabetes - HEMOGLOBIN A1C; Future; Expected date: 10/16/2021 Follow Up: Return in about 6 months (around 04/15/2022) for Clinic Visit. | For: Clinic Visit Yariel Cardoza MD documented in this encounter Nursing Notes * Salma Alaniz LPN - 10/16/2021 4:03 PM EST Recheck. Pt would like to discuss follow up on thyroid nodules, but hasn't heard anything; hernia. documented in this encounter Plan of Treatment Scheduled Orders Name Type Priority Associated Diagnoses Orde r Schedule LIPID PANEL WITH DIRECT LDL IF TG IS HIGH Lab Routine Dyslipidemia, goal LDL below 100 Expected: 10/16/2021, Expires: 10/16/2022 COMPREHENSIVE METABOLIC PANEL Lab Routine HTN, goal below 140/90 Dyslipidemia, goal LDL below 100 Expected: 10/16/2021 (Approximate), Expires: 10/16/2022 HEMOGLOBIN A1C Lab Routine Prediabetes Expected: 10/16/2021 (Approximate), Expires: 10/16/2022 TSH WITH FREE T4 IF INDICATED Lab Routine Thyroid nodule Expected: 10/16/2021 (Approximate), Expires: 10/16/2022 Scheduled Procedures Name Priority Associated Diagnoses Date/Ti me COLONOSCOPY FLEXIBLE PROXIMAL DIAGNOSTIC Recall History of colon polyps Scheduled Referrals Name Type Priority Associated Diagnoses Order Schedule OTOLARYNGOLOGY REFERRAL OP Referral Within 10 days (routine) Thyroid nodule Ordered: 10/16/2021 Health Maintenance Due Date Last Done Comments [...] as of this encounter Visit Diagnoses Diagnosis Thyroid nodule- Primary Nontoxic uninodular goiter COPD, severe (HCC) Chronic airway obstruction, not elsewhere classified Moderate episode of recurrent major depressive disorder (HCC) Peripheral vascular disease (HCC) Peripheral vascular disease, unspecified Severe obesity with body mass index (BMI) of 35.0 to 39.9 with serious comorbidity (HCC) HTN, goal below 140/90 Unspecified essential hypertension Gastro-esophageal reflux disease without esophagitis Esophageal reflux Vertebral artery stenosis, asymptomatic, right Dyslipidemia, goal LDL below 100 Other and unspecified hyperlipidemia Need for vaccination for zoster Need for prophylactic vaccination and inoculation against other viral diseases Prediabetes Other abnormal glucose documented in this encounter Advance Directives Documents on File Type Date Recorded 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
--- OUTSIDE RECORDS SUMMARY | 2023-06-07 07:47 | External Medical Summary | Summary of Care ---
Author Name Unknown Organization [place] [address] Care Team Providers Care Sewing Machine Operator Plastic Zipper Name Role Phone Yariel Cardoza MD Primary Care Provide r Reason for Visit * Reason Onset Date Comments [facility]: Maintenance 10/05/2021 Encounter Details Date Type Department Care Team Description 10/05/2021 Scheduled Telephone [facility], [facility] 132 [facility] [place] [address] Coordinator, [facility] 132 [facility] [place] [address] Allergies Active Allergy Reactions Severity Noted Date Comments Adhesive Tape 06/29/2003 Sensitive to Naproxen Hives 05/28/2015 Ivp Dye Hives 08/20/2000 Latex Other (Please comment) 01/05/2015 Contact rash Ibuprofen Rash 01/05/2015 documented as of this encounter (statuses as of 10/05/2021) Medications Medication Sig Dispensed Refills Start Date End Date Status oxygen GASIndications:Hypox ia Use 2 L/min(Oxygen) as directed continuous. 1 Each 0 02/18/2017 Active budesonide (PULMICORT) 0.5 MG/2ML nebulizer solution INHALE ONE UNIT DOSE VIAL VIA NEBULIZER TWO TIMES A DAY. 3 08/03/2017 Active VENTOLIN HFA 108 (90 Base) MCG/ACT [...] pain 120 Cap 5 12/22/2020 Active Nystatin 292764 UNIT/GM External Powder (Nystop)Indications: Candidal skin infection [...] by mouth at bedtime. 90 Tab 1 07/07/2021 Active Omeprazole 20 MG Oral Capsule Delayed [...] for Cough. 30 Capsule 1 09/27/2021 Active Amoxicillin-Pot Clavulanate 875-125 MG Oral Tablet (Augmentin)Indicatio ns:Viral illness Take 1 Tablet by mouth 2 times a day for 10 days. 20 Tablet 0 09/27/2021 2 Active Promethazine-Codeine 6.25-10 MG/5ML Oral SyrupIndications:Vir al URI with cough Take 5 mL by mouth 4 times a day as needed for Cough for up to 12 days. 120 mL 1 10/02/2021 2 Active Azithromycin 250 MG Oral Tablet (Zithromax Z-Nilson)Indications:CO PD with acute bronchitis (HCC) Take two tablets by mouth on first day, then 1 tablet daily until gone 6 Tablet 0 10/03/2021 Active predniSONE 20 MG Oral Tablet (Deltasone)Indicatio ns:COPD with acute bronchitis (HCC) Take 2 Tablets by mouth daily for 5 days. 10 Tablet 0 10/03/2021 2 Active Atenolol 25 MG Oral Tablet (Tenormin)Indication s:HTN, goal below 140/90 TAKE 1 TABLET BY MOUTH EVERY DAY 90 Tablet 1 10/04/2021 Active documented as of this encounter (statuses as of 10/05/2021) Active Problems Problem Noted Date History of TIA (transient ischemic attac k) [...] as of this encounter (statuses as of 10/05/2021) Resolved Problems Problem Noted Date Resolved Date [...] as of this encounter (statuses as of 10/05/2021) Immunizations Name Administration Dates Next Due COVID-19 mRNA, LNP-s, No Pre serve, 2-Dose Series ([employer]) 09/13/2021,12/16/2020,11/25/2020 Pneumococcal Conjugate Vacc, 13 Valent [...] encounter Miscellaneous Notes * Telephone Encounter - Michelle Hunt RN - 10/05/2021 9:40 AM EST Call received from the pt's daughter. States hat the pt is still having yellow green mucus and coughing a lot. Denies fever. SOB on exertion. Is still taking Zpak. Mobile xray did not show up yesterday. Pt's daughter to take pt to [facility] to get CXR done. 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
--- OUTSIDE RECORDS SUMMARY | 2023-06-07 07:47 | External Medical Summary | Summary of Care ---
Author Name Unknown Organization [place] [address] Care Team Providers Care Image Archivist Name Role Phone Yariel Cardoza MD Primary Care Provide r Reason for Visit * Reason Onset Date Comments COVID-19 Screening 10/05/2021 Encounter Details Date Type Department Care Team Description 10/05/2021 Telephone COVID19 Screening [facility] DEPT CLOSED 07/18/21 [address] [place] [address] [id number], Automated Provider COVID-19 Screening Allergies Active Allergy Reactions Severity Noted Date [...] pain 120 Cap 5 12/22/2020 Active Nystatin 992157 UNIT/GM External Powder (Nystop)Indications: Candidal skin infection [...] EVERY DAY 90 Tablet 1 10/04/2021 Active Budesonide 0.5 MG/2ML Inhalation Suspension (Pulmicort) INHALE ONE UNIT DOSE VIAL VIA NEBULIZER TWO TIMES A DAY. 60 mL 3 10/05/2021 Active documented as of this encounter (statuses [...] mRNA, LNP-s, No Pre serve, 2-Dose Series ([employer]) 09/13/2021,12/16/2020,11/25/2020 Pneumococcal Conjugate Vacc, 13 Valent (Prevnar) [...] encounter Miscellaneous Notes * Telephone Encounter - Covid Results [facility] - 10/05/2021 10:05 PM EST Outreach Attempts Oct 05 2021 9:03AM - Fail to reach patient IVR Message: Unsuccessful contact, no education provided documented in this encounter Plan of Treatment Upcoming Encounters Date Type Specialty Care Team Description 10/06/2021 Scheduled Telephone [facility], Nurse [facility] [address] [place] [address] 10/13/2021 Scheduled Telephone [facility] Corrina Layne RN [address] [place] [address] 10/16/2021 Office Visit Family Medicine Yariel Cardoza MD [address] [place] [address] [place] [address] Scheduled Procedures Name Priority Associated Diagnoses Date/Ti [...] Documents on File Type Date Recorded Patient Rn Concurrent Review Expl 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 Directive Advanced Directive Advanced Directive Care Teams Image Archivist Relationship Specialty Start Date End Date Yariel Cardoza MD [address] [place] [address] [place] [address] PCP - General Family Medicine 12/01/18 documented as of this encounter
--- OUTSIDE RECORDS SUMMARY | 2023-06-07 07:47 | External Medical Summary | Summary of Care ---
Author Name Unknown Organization [place] [address] Care Team Providers Care Core Measures Abstractor Name Role Phone Yariel Cardoza MD Primary Care Provide r Reason for Visit * Reason Onset Date Comments [facility]: Maintenance 10/05/2021 Encounter Details Date Type Department Care Team Description 10/05/2021 Scheduled Telephone [facility], [facility] 132 [facility] [place] [address] Coordinator, [facility] 132 [facility] [place] [address] Allergies Active Allergy Reactions Severity Noted Date [...] pain 120 Cap 5 12/22/2020 Active Nystatin 819595 UNIT/GM External Powder (Nystop)Indications :Candidal skin infection [...] Amoxicillin-Pot Clavulanate 875-125 MG Oral Tablet (Augmentin)Indicati ons:Viral illness Take 1 Tablet by mouth 2 times a day for 10 days. 20 Tablet 0 09/27/2021 2 Active Promethazine-Codein e 6.25-10 MG/5ML Oral SyrupIndications:Vi ral URI with cough Take 5 mL by mouth 4 times a day as needed for Cough for up to 12 days. 120 mL 1 10/02/2021 2 Active Azithromycin 250 MG Oral Tablet (Zithromax Z-Nilson)Indications:C OPD with acute bronchitis (HCC) Take two tablets by mouth on first day, then 1 tablet daily until gone 6 Tablet 0 10/03/2021 Active predniSONE 20 MG Oral Tablet (Deltasone)Indicati ons:COPD with acute bronchitis (HCC) Take 2 Tablets by mouth daily for 5 days. 10 Tablet 0 10/03/2021 2 Active Atenolol 25 MG Oral Tablet (Tenormin)Indicatio ns:HTN, goal below 140/90 TAKE 1 TABLET BY MOUTH EVERY DAY 90 Tablet 1 10/04/2021 Active Budesonide 0.5 MG/2ML Inhalation Suspension (Pulmicort) INHALE ONE UNIT DOSE VIAL VIA NEBULIZER TWO TIMES A DAY. 60 mL 3 10/05/2021 Active budesonide (PULMICORT) 0.5 MG/2ML nebulizer solution INHALE ONE UNIT DOSE VIAL VIA NEBULIZER TWO TIMES A DAY. 3 08/03/2017 1 Discontinu ed(Refill) documented as of this encounter [...] mRNA, LNP-s, No Pre serve, 2-Dose Series ([employer]) 09/13/2021,12/16/2020,11/25/2020 Pneumococcal Conjugate Vacc, 13 Valent (Prevnar) [...] encounter Miscellaneous Notes * Addendum Note - Swati Perez MD - 10/05/2021 2:47 PM EST Addended by: SWATI ROBLES on: 10/05/2021 02:47 PM Modules accepted: Orders * Telephone Encounter - Swati Perez MD - 10/05/2021 2:44 PM EST Please advise that I Emailed a prescription for budesonide to [facility] pharmacy. I reviewed the chest x ray image from [facility] , it appears that she does not have pneumonia. I am waiting on the radiologist interpretation. Swati Robles MD * Telephone Encounter - Michelle Hunt RN - 10/05/2021 9:40 AM EST Call received from the pt's daughter. States that the pt is still having yellow green mucus and coughing a lot. SOB on exertion. Denies fever. Is still taking Zpak. Mobile xray did not show up yesterday. Pt's daughter to take pt to [facility] to get CXR done. Call to [facility] mobile xray. Mobile xray cancelled. Spoke to Vika. Phone call follow up scheduled for tomorrow to check for CXR results. 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
--- OUTSIDE RECORDS SUMMARY | 2023-06-07 07:47 | External Medical Summary | Summary of Care ---
Author Name Unknown Organization [place] [address] Care Team Providers Care Motor Tune Up Specialist Name Role Phone Yariel Cardoza MD Primary Care Provide r Reason for Visit * Reason Onset Date Comments [facility]: Maintenance 10/04/2021 Encounter Details Date Type Department Care Team Description 10/04/2021 Scheduled Telephone [facility], [facility] 132 [facility] [place] [address] Coordinator, [facility] 132 [facility] [place] [address] Allergies Active Allergy Reactions Severity Noted Date Comments Adhesive Tape 06/29/2003 Sensitive to Naproxen Hives 05/28/2015 Ivp Dye Hives 08/20/2000 Latex Other (Please comment) 01/05/2015 Contact rash Ibuprofen Rash 01/05/2015 documented as of this encounter (statuses as of 10/04/2021) Medications Medication Sig Dispensed Refills Start Date [...] pain 120 Cap 5 12/22/2020 Active Nystatin 903855 UNIT/GM External Powder (Nystop)Indications: Candidal skin infection [...] as of this encounter (statuses as of 10/04/2021) Active Problems Problem Noted Date History of [...] as of this encounter (statuses as of 10/04/2021) Resolved Problems Problem Noted Date Resolved Date [...] as of this encounter (statuses as of 10/04/2021) Immunizations Name Administration Dates Next Due COVID-19 mRNA, LNP-s, No Pre serve, 2-Dose Series ([email or web address]) 09/13/2021,12/16/2020,11/25/2020 Pneumococcal Conjugate Vacc, 13 Valent (Prevnar) [...] encounter Miscellaneous Notes * Telephone Encounter - Tara Stevens LPN - 10/04/2021 1:12 PM EST Pt informed * Telephone Encounter - Mayank Perez MD - 10/04/2021 12:32 PM EST Advise to finish Augmentin prescription and remain on zithromax. Mayank Robles MD * Telephone Encounter - Tara Stevens LPN - 10/04/2021 10:52 AM EST Acute visit f/u phone call Spoke with patient Feeling a lot better today Still with cough-has not been productive since last night Denies any fever Denies any wheezing Wearing 2lpm of oxygen-denies any SOB Energy level is better today Got abx and prednisone picked up and started yesterday Eating and drinking normally Denies any N/V/D Routinely takes miralax twice daily Denies any headache today Pt was started on augmentin on 09/27 for 10 days, but then given zpak yesterday Is she to continue both abx?? 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
--- OUTSIDE RECORDS SUMMARY | 2023-06-07 07:47 | External Medical Summary | Summary of Care ---
Author Name Unknown Organization [place] [address] Care Team Providers Care Automotive Instructor Name Role Phone Yariel Cardoza MD Primary Care Provide r Reason for Visit * Reason Onset Date Comments [facility]: Maintenance 10/06/2021 Encounter Details Date Type Department Care Team Description 10/06/2021 Scheduled Telephone [facility], [facility] 132 [facility] [place] [address] [facility], Nurse [facility] 132 [place] [address] Allergies Active Allergy Reactions Severity Noted Date Comments Adhesive Tape 06/29/2003 Sensitive to Naproxen Hives 05/28/2015 Ivp Dye Hives 08/20/2000 Latex Other (Please comment) 01/05/2015 Contact rash Ibuprofen Rash 01/05/2015 documented as of this encounter (statuses as of 10/06/2021) Medications Medication Sig Dispensed Refills Start Date [...] pain 120 Cap 5 12/22/2020 Active Nystatin 870571 UNIT/GM External Powder (Nystop)Indications: Candidal skin infection [...] as of this encounter (statuses as of 10/06/2021) Active Problems Problem Noted Date History of [...] as of this encounter (statuses as of 10/06/2021) Resolved Problems Problem Noted Date Resolved Date [...] as of this encounter (statuses as of 10/06/2021) Immunizations Name Administration Dates Next Due COVID-19 [...] encounter Miscellaneous Notes * Telephone Encounter - Chantell Bender RN - 10/06/2021 2:00 PM EST [facility] phone call to follow up SOB and cough. Pt continues rescue kit. Denies shortness of breath. Cough near resolved. Feeling better. Made aware CXR results still in process. Patient denies needs. 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
--- OUTSIDE RECORDS SUMMARY | 2023-06-07 07:47 | External Medical Summary | Summary of Care ---
Author Name Unknown Organization [place] [address] Care Team Providers Care Lamp Inspector Name Role Phone Yariel Cardoza MD Primary Care Provide r Reason for Visit * Reason Onset Date Comments [facility]: Maintenance 10/05/2021 Encounter Details Date Type Department Care Team Description 10/05/2021 Scheduled Telephone [facility], [facility] 132 [facility] [place] [address] Coordinator, [facility] 132 [facility] [place] [address] Allergies Active Allergy Reactions Severity Noted Date [...] pain 120 Cap 5 12/22/2020 Active Nystatin 088695 UNIT/GM External Powder (Nystop)Indications :Candidal skin infection [...] mRNA, LNP-s, No Pre serve, 2-Dose Series ([employer]) 09/13/2021,12/16/2020,11/25/2020 Pneumococcal Conjugate Vacc, 13 Valent (Prevnar) [...] Encounter - Michelle Hunt RN - 10/05/2021 3:42 PM EST Call placed to the pt. Made her aware of [facility] recommendation, preliminary CXR results and new script. Pt verbalized understanding. Scheduled follow up phone for tomorrow. * Addendum Note - Swati Perez MD - 10/05/2021 2:47 PM EST Addended by: SWATI ROBLES on: 10/05/2021 02:47 PM Modules accepted: Orders * Telephone Encounter - Swati Perez MD - 10/05/2021 2:44 PM EST Please advise that I Emailed a prescription for budesonide to [facility] pharmacy. I reviewed the chest x ray image from [facility] , it appears that she does not [...] yesterday. Pt's daughter to take pt to [facility] to get [facility] done. Call to [facility] mobile xray. Mobile xray cancelled. Spoke to Vika. Phone call follow up scheduled for tomorrow to check for CXR results. documented in this encounter Plan of Treatment Upcoming Encounters Date Type Specialty Care Team Description 10/06/2021 Scheduled Telephone [facility] [place], Nurse [facility] [place] [address] [place] [address] 10/13/2021 Scheduled Telephone [facility] Corrina Layne RN 132 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
--- OUTSIDE RECORDS SUMMARY | 2023-06-07 07:47 | External Medical Summary | Summary of Care ---
Author Name Unknown Organization [place] [address] Care Team Providers Care Blow Off Worker Name Role Phone Yariel Cardoza MD Primary Care Provide r Reason for Visit * Reason Onset Date Comments COVID-19 Screening 10/04/2021 Encounter Details Date Type Department Care Team Description 10/04/2021 Telephone COVID19 Screening [facility] DEPT CLOSED 07/18/21 [address] [place] [id number], Automated Provider COVID-19 Screening Allergies Active Allergy [...] pain 120 Cap 5 12/22/2020 Active Nystatin 147968 UNIT/GM External Powder (Nystop)Indications: Candidal skin infection [...] mRNA, LNP-s, No Pre serve, 2-Dose Series ([employer]) 09/13/2021,12/16/2020,11/25/2020 Pneumococcal Conjugate Vacc, 13 Valent (Prevnar) [...] Notes * Telephone Encounter - Covid Results [facility] - 10/04/2021 10:16 PM EST Outreach Attempts Oct 04 2021 9:02AM - Fail to reach patient IVR Message: Unsuccessful contact, no education provided documented in this encounter Plan of Treatment Upcoming Encounters Date Type Specialty Care Team Description 10/05/2021 Scheduled Telephone [facility] Asst, David [facility] Replaced By [facility] [address] [place] [address] 10/13/2021 Scheduled Telephone [facility] Corrina Layne RN [address] [place] [address] 10/16/2021 Office Visit Family Medicine Yariel Cardoza MD [address] [place] [address] [place] [address] Scheduled Procedures Name Priority Associated Diagnoses Date/Ti [...] Documents on File Type Date Recorded Patient [facility] Expl 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 Directive Advanced Directive Advanced Directive Care Teams Blow Off Worker Relationship Specialty Start Date End Date Yariel Cardoza MD [address] [place] [address] [place] [phone] PCP - General Family Medicine 12/01/18 documented as of this encounter
--- OUTSIDE RECORDS SUMMARY | 2023-06-07 07:47 | External Medical Summary | Summary of Care ---
Author Name Unknown Organization [facility] [address] Care Team Providers Care Dumpling Machine Operator Name Role Phone Yariel Cardoza MD Primary Care Provide r Reason for Visit * Reason Onset Date Comments Appointment 10/17/2021 [facility] Encounter Details Date Type Department Care Team Description 10/17/2021 Telephone Family [address] [phone] Yariel Cardoza MD [address] [place] [address] [place] [phone] Appointment ([facility] ) Allergies Active Allergy Reactions Severity Noted Date Comments Adhesive Tape 06/29/2003 Sensitive to Naproxen Hives 05/28/2015 Ivp Dye Hives 08/20/2000 Latex Other (Please comment) 01/05/2015 Contact rash Ibuprofen Rash 01/05/2015 documented as of this encounter (statuses as of 10/17/2021) Medications Medication Sig Dispensed Refills Start Date [...] pain 120 Cap 5 12/22/2020 Active Nystatin 327066 UNIT/GM External Powder (Nystop)Indications: Candidal skin infection [...] A DAY. 120 mL 5 10/16/2021 Active documented as of this encounter (statuses as of 10/17/2021) Active Problems Problem Noted Date Peripheral vascular [...] as of this encounter (statuses as of 10/17/2021) Resolved Problems Problem Noted Date Resolved Date [...] as of this encounter (statuses as of 10/17/2021) Immunizations Name Administration Dates Next Due COVID-19 [...] Miscellaneous Notes * Telephone Encounter - VIRA Agarwal - 10/17/2021 10:19 AM EST 12/04/21 2:[address] [facility], [address] [place] [address]. I sent patient a copy of referral with the date, time and location. I also left her know that she will need to go to [facility] office on 11/28/21 before 11:30 am and get a COVID test. She needs to have this done before her ENT appt. Referral and records faxed to [phone]. 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
--- OUTSIDE RECORDS SUMMARY | 2023-06-07 07:47 | External Medical Summary | Summary of Care ---
Author Name Unknown Organization [place] [address] Care Team Providers Care Venereal Disease Control Head Name Role Phone Yariel Cardoza MD Primary Care Provide r Reason for Visit * Reason Onset Date Comments [facility]: Maintenance 10/05/2021 Encounter Details Date Type Department Care Team Description 10/05/2021 Scheduled Telephone [facility], [facility] 132 [facility] [place] [address] Coordinator, [facility] [address] [facility] [place] [address] Allergies Active Allergy Reactions Severity Noted Date [...] pain 120 Cap 5 12/22/2020 Active Nystatin 121313 UNIT/GM External Powder (Nystop)Indications: Candidal skin infection [...] mRNA, LNP-s, No Pre serve, 2-Dose Series ([employer]) 09/13/2021,12/16/2020,11/25/2020 Pneumococcal Conjugate Vacc, 13 Valent [...] yesterday. Pt's daughter to take pt to [facility] to get CXR done. Call to [facility] mobile xray. Mobile xray cancelled. Spoke to [facility]. Phone call follow up scheduled for tomorrow to check for CXR results. documented in this encounter Plan of Treatment Upcoming Encounters Date Type Specialty Care Team Description 10/06/2021 Scheduled Telephone [facility] 132 [place] [address] 10/13/2021 Scheduled Telephone [facility] Corrina Layne RN [address] [place] [address] 10/16/2021 Office Visit Family Medicine Yariel Cardoza MD [address] [place] [address] [place] [address] Scheduled Procedures Name Priority Associated Diagnoses Date/Ti [...] Documents on File Type Date Recorded Patient Roll Carrier Expl 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 Directive Advanced Directive Advanced Directive Care Teams Venereal Disease Control Head Relationship Specialty Start Date End Date Yariel Cardoza MD [address] [place] [address] [place] [id number] PCP - General Family Medicine 12/01/18 documented as of this encounter
--- OUTSIDE RECORDS SUMMARY | 2023-06-07 07:47 | External Medical Summary | Summary of Care ---
Author Name Unknown Organization [place] [address] Care Team Providers Care Bathhouse Attendant Name Role Phone Yariel Cardoza MD Primary Care Provide r Reason for Visit * Reason Onset Date Comments [facility]: Maintenance 10/13/2021 Encounter Details Date Type Department Care Team Description 10/13/2021 Scheduled Telephone [facility], [facility] 132 [facility] [place] [address] Corrina Layne RN 132 [facility] [place] [address] Allergies Active Allergy Reactions Severity Noted Date Comments Adhesive Tape 06/29/2003 Sensitive to Naproxen Hives 05/28/2015 Ivp Dye Hives 08/20/2000 Latex Other (Please comment) 01/05/2015 Contact rash Ibuprofen Rash 01/05/2015 documented as of this encounter (statuses as of 10/15/2021) Medications Medication Sig Dispensed Refills Start Date [...] pain 120 Cap 5 12/22/2020 Active Nystatin 485853 UNIT/GM External Powder (Nystop)Indications: Candidal skin infection [...] for Cough. 30 Capsule 1 09/27/2021 Active Azithromycin 250 MG Oral Tablet (Zithromax Z-Nilson)Indications:CO PD with acute bronchitis (HCC) Take two tablets by mouth on first day, then 1 tablet daily until gone 6 Tablet 0 10/03/2021 Active Atenolol 25 MG Oral Tablet (Tenormin)Indication s:HTN, goal below 140/90 TAKE 1 TABLET BY MOUTH EVERY DAY 90 Tablet 1 10/04/2021 Active Budesonide 0.5 MG/2ML Inhalation Suspension (Pulmicort) INHALE ONE UNIT DOSE VIAL VIA NEBULIZER TWO TIMES A DAY. 60 mL 3 10/05/2021 Active documented as of this encounter (statuses as of 10/15/2021) Active Problems Problem Noted Date History of [...] as of this encounter (statuses as of 10/15/2021) Resolved Problems Problem Noted Date Resolved Date [...] as of this encounter (statuses as of 10/15/2021) Immunizations Name Administration Dates Next Due COVID-19 [...] Telephone Encounter - Corrina Layne RN - 10/15/2021 9:30 AM EST Follow up call to pt. No answer. Unable to leave VM. Will reschedule call. 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
--- OUTSIDE RECORDS SUMMARY | 2023-06-07 07:48 | External Medical Summary | Summary of Care ---
Author Name Unknown Organization [place] [address] Care Team Providers Care Materials Recycler Name Role Phone Yariel Cardoza MD Primary Care Provide r Reason for Visit * Reason Onset Date Comments [facility]: Maintenance 10/03/2021 Encounter Details Date Type Department Care Team Description 10/03/2021 Telephone [facility], [facility] 132 [facility] [place] [address] Magda Arreola LPN [facility]: Maintenance Allergies Active Allergy Reactions Severity Noted Date Comments Adhesive Tape 06/29/2003 Sensitive to Naproxen Hives 05/28/2015 Ivp Dye Hives 08/20/2000 Latex Other (Please comment) 01/05/2015 Contact rash Ibuprofen Rash 01/05/2015 documented as of this encounter (statuses as of 10/03/2021) Medications Medication Sig Dispensed Refills Start Date End Date Status oxygen GASIndications:Hypo bryan Use 2 L/min(Oxygen) as directed continuous. 1 Each 0 7 Active budesonide (PULMICORT) 0.5 MG/2ML nebulizer solution INHALE ONE UNIT DOSE VIAL VIA NEBULIZER TWO TIMES A DAY. 3 7 Active VENTOLIN HFA 108 (90 Base) [...] pain 120 Cap 5 1 Active Nystatin 192406 UNIT/GM External Powder (Nystop)Indications :Candidal skin infection [...] DIZZINESS/VERTI GO 10 Tab 0 1 Active Atenolol 25 MG Oral Tablet (Tenormin)Indicatio ns:HTN, goal below 140/90 Take 1 Tab by mouth daily. 90 Tab 3 1 Active Losartan Potassium 50 MG Oral [...] for Cough. 30 Capsule 1 1 Active Amoxicillin-Pot Clavulanate 875-125 MG Oral Tablet (Augmentin)Indicati ons:Viral illness Take 1 Tablet by mouth 2 times a day for 10 days. 20 Tablet 0 1 10/07/19 22 Active Promethazine-Codein e 6.25-10 MG/5ML Oral SyrupIndications:Vi ral URI with cough Take 5 mL by mouth 4 times a day as needed for Cough for up to 12 days. 120 mL 1 1 10/14/19 22 Active predniSONE 50 MG Oral Tablet (Deltasone)Indicati ons:Allergic reaction to contrast material, subsequent encounter Take 1 tab 13 hrs before scan, take 1 tab 7 hrs before scan, take 1 tab 1 hr before scan with Benadryl 3 Tab 0 1 10/03/20 21 Discontinued documented as of this encounter (statuses as of 10/03/2021) Active Problems Problem Noted Date History of [...] as of this encounter (statuses as of 10/03/2021) Resolved Problems Problem Noted Date Resolved Date [...] as of this encounter (statuses as of 10/03/2021) Immunizations Name Administration Dates Next Due COVID-19 mRNA, LNP-s, No Pre serve, 2-Dose Series ([employer]) 09/13/2021,12/16/2020,11/25/2020 Pneumococcal Conjugate Vacc, 13 Valent (Prevnar) [...] encounter Miscellaneous Notes * Telephone Encounter - Mayank Perez MD - 10/03/2021 1:15 PM EST Noted Thank you Mayank Robles MD * Telephone Encounter - Magda Arreola LPN - 10/03/2021 10:49 AM EST Communication Note Name: Jayla Hayes Situation: Cathy (daughter) called requesting acute visit for Jayla. Background: She continues to have productive cough with greenish mucous, headaches, nausea, body aches with cough. On Amoxicillin since 09/27/21. Assessment: Temp: 97.5 Recommendation: Acute visit scheduled today with Augusta Layne RN at 5:30. She will call the patientwhen she is on her way to the home. Care team availability: GPS (location): V[facility] Acute nurse: not available MIH: not available documented in this encounter Plan of Treatment Upcoming Encounters Date Type Specialty Care Team Description 10/03/2021 [facility] Visit [facility] Corrina Layne RN 132 [facility] [place] [address] 10/16/2021 Office Visit Family Medicine Yariel Cardoza MD [address] [place] [address] [place] [address] Scheduled Procedures Name Priority Associated Diagnoses Date/Ti [...] Documents on File Type Date Recorded Patient Competency Evaluated Nurse Aide Expl 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 Directive Advanced Directive Advanced Directive Care Teams Materials Recycler Relationship Specialty Start Date End Date Yariel Cardoza MD [address] [place] [address] [place] [address] PCP - General Family Medicine 12/01/18 documented as of this encounter
--- OUTSIDE RECORDS SUMMARY | 2023-06-07 07:48 | External Medical Summary | Summary of Care ---
Author Name Unknown Organization [place] [address] Care Team Providers Care Nuclear Medicine Chief Technologist Name Role Phone Yariel Cardoza MD Primary Care Provide r Reason for Visit * Reason Onset Date Comments COVID-19 Screening 10/01/2021 Encounter Details Date Type Department Care Team Description 10/01/2021 Telephone COVID19 Screening [facility] DEPT CLOSED 07/18/21 [address] [place] [address] [id number], Automated Provider COVID-19 Screening Allergies Active Allergy Reactions Severity Noted Date Comments Adhesive Tape 06/29/2003 Sensitive to Naproxen Hives 05/28/2015 Ivp Dye Hives 08/20/2000 Latex Other (Please comment) 01/05/2015 Contact rash Ibuprofen Rash 01/05/2015 documented as of this encounter (statuses as of 10/02/2021) Medications Medication Sig Dispensed Refills Start Date [...] pain 120 Cap 5 12/22/2020 Active Nystatin 051149 UNIT/GM External Powder (Nystop)Indications: Candidal skin infection [...] DIZZINESS/VERTIG O 10 Tab 0 06/06/2021 Active Atenolol 25 MG Oral Tablet (Tenormin)Indication s:HTN, goal below 140/90 Take 1 Tab by mouth daily. 90 Tab 3 06/20/2021 Active Losartan Potassium 50 MG Oral Tablet [...] at bedtime. 90 Tab 1 07/07/2021 Active predniSONE 50 MG Oral Tablet (Deltasone)Indicatio ns:Allergic reaction to contrast material, subsequent encounter Take 1 tab 13 hrs before scan, take 1 tab 7 hrs before scan, take 1 tab 1 hr before scan with Benadryl 3 Tab 0 07/26/2021 Active Omeprazole 20 MG Oral Capsule Delayed [...] days. 20 Tablet 0 09/27/2021 2 Active Oseltamivir Phosphate 75 MG Oral Capsule (Tamiflu) Take 1 Capsule by mouth daily for 5 days. For 5 days. 10 Capsule 0 09/27/2021 1 Active documented as of this encounter (statuses as of 10/02/2021) Active Problems Problem Noted Date History of [...] as of this encounter (statuses as of 10/02/2021) Resolved Problems Problem Noted Date Resolved Date [...] as of this encounter (statuses as of 10/02/2021) Immunizations Name Administration Dates Next Due COVID-19 mRNA, LNP-s, No Pre serve, 2-Dose Series ([employer]) 09/13/2021,12/16/2020,11/25/2020 Pneumococcal Conjugate Vacc, 13 Valent (Prevnar) [...] encounter Miscellaneous Notes * Telephone Encounter - Saeedstacy Olivares - 10/01/2021 11:49 PM EST Outreach Attempts Oct 01 2021 9:04AM - Fail to reach patient IVR Message: Unsuccessful contact, no education provided documented in this encounter Plan of Treatment Upcoming Encounters Date Type Specialty Care Team Description 10/16/2021 Office Visit Family Medicine Yariel Cardoza MD [address] [place] [address] [place] [address] Scheduled Procedures Name Priority [...] exists COVID-19 Vaccine Completed 09/13/2021, 09/2021, 11/25/2020 MENINGOCOCCAL (MENACTRA/MENVEO) Aged Out No longer eligible based on patient's age to complete this topic documented as of this encounter Implants Not on filedocumented as of this encounter Advance Directives Documents on File Type Date Recorded Patient Chair Frame Builder Expl 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 Directive Advanced Directive Advanced Directive Care Teams Nuclear Medicine Chief Technologist Relationship Specialty Start Date End Date Yariel Cardoza MD [address] [place] [address] [place] [phone] PCP - General Family Medicine 12/01/18 documented as of this encounter
--- OUTSIDE RECORDS SUMMARY | 2023-06-07 07:48 | External Medical Summary | Summary of Care ---
Author Name Unknown Organization [place] [address] Care Team Providers Care Fund Controller Name Role Phone Leanne Cardoza MD Primary Care Provide r Reason for Visit * Reason Comments eRx-Medication Refill Encounter Details Date Type Department Care Team Description 10/03/2021 Refill Family [address] [place] [phone] Leanne Cardoza MD [address] [place] [address] [place] [phone] HTN, goal below 140/90 Allergies Active Allergy [...] pain 120 Cap 5 1 Active Nystatin 085448 UNIT/GM External Powder (Nystop)Indications :Candidal skin infection [...] 120 mL 1 1 10/14/19 22 Active Azithromycin 250 MG Oral Tablet (Zithromax Z-Nilson)Indications:C OPD with acute bronchitis (HCC) Take two tablets by mouth on first day, then 1 tablet daily until gone 6 Tablet 0 1 Active predniSONE 20 MG Oral Tablet (Deltasone)Indicati ons:COPD with acute bronchitis (HCC) Take 2 Tablets by mouth daily for 5 days. 10 Tablet 0 1 10/08/19 22 Active Atenolol 25 MG Oral Tablet (Tenormin)Indicatio ns:HTN, goal below 140/90 TAKE 1 TABLET BY MOUTH EVERY DAY 90 Tablet 1 1 Active Atenolol 25 MG Oral Tablet (Tenormin)Indicatio ns:HTN, goal below 140/90 Take 1 Tab by mouth daily. 90 Tab 3 1 10/04/20 21 Discontinued documented as of this encounter [...] mRNA, LNP-s, No Pre serve, 2-Dose Series ([employer] [facility]) 09/13/2021,12/16/2020,11/25/2020 Pneumococcal Conjugate Vacc, 13 Valent [...] Telephone Encounter - Jame Tavarez RPh - 10/04/2021 7:21 AM EST Signed Prescriptions: Disp Refills Atenolol 25 MG Oral Tablet (Tenormin) 90 Tab*1 Sig: TAKE 1 TABLET BY MOUTH EVERY DAYAuthorizing Provider: LEANNE CARDOZA User: AJME TAVAREZ------- documented in this encounter Plan of Treatment Upcoming Encounters Date Type Specialty Care Team Description 10/04/2021 Scheduled Telephone [facility] Labor Forklift Operator, David Wilcox [address] [place] [address] 10/05/2021 Scheduled Telephone [facility] Labor Forklift Operator, David Wilcox 132 [place] [address] 10/16/2021 Office Visit Family Medicine Leanne Cardoza MD [address] [place] [address] [place] [address] Scheduled Procedures Name Priority Associated Diagnoses Date/Ti [...] Documents on File Type Date Recorded Patient Vice President Of Customer Service Expl 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 Directive Advanced Directive Advanced Directive Care Teams Fund Controller Relationship Specialty Start Date End Date Leanne Cardoza MD [address] [place] [address] [place] [address] PCP - General Family Medicine 12/01/18 documented as of this encounter
--- OUTSIDE RECORDS SUMMARY | 2023-06-07 07:48 | External Medical Summary | Summary of Care ---
Author Name Unknown Organization [place] [address] Care Team Providers Care Tree Killer Name Role Phone Yariel Cardoza MD Primary Care Provide r Reason for Visit * Reason Onset Date Comments COVID-19 Screening 10/03/2021 Encounter Details Date Type Department Care Team Description 10/03/2021 Telephone COVID19 Screening [facility] DEPT CLOSED 07/18/21 575 [place] [id number], Automated Provider COVID-19 Screening Allergies Active Allergy [...] pain 120 Cap 5 12/22/2020 Active Nystatin 999533 UNIT/GM External Powder (Nystop)Indications: Candidal skin infection [...] days. 10 Tablet 0 10/03/2021 2 Active documented as of this encounter (statuses [...] mRNA, LNP-s, No Pre serve, 2-Dose Series ([employer]) 09/13/2021,12/16/2020,11/25/2020 Pneumococcal Conjugate Vacc, 13 Valent (Prevnar) [...] Notes * Telephone Encounter - Covid Results [facility] - 10/03/2021 10:34 PM EST Outreach Attempts Oct 03 2021 9:04AM - Fail to reach patient IVR Message: Unsuccessful contact, no education provided documented in this encounter Plan of Treatment Upcoming Encounters Date Type Specialty Care Team Description 10/04/2021 Scheduled Telephone [facility], [facility] [place] [address] 10/05/2021 Scheduled Telephone [facility], [facility] [place] [address] 10/16/2021 Office Visit Family Medicine Yariel Cardoza MD [address] [place] [address] [place] [address] Scheduled Procedures Name Priority Associated Diagnoses Date/Ti [...] Documents on File Type Date Recorded Patient Associate Faculty Expl 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 Directive Advanced Directive Advanced Directive Care Teams Tree Killer Relationship Specialty Start Date End Date Yariel Cardoza MD [address] [place] [address] [place] [address] PCP - General Family Medicine 12/01/18 documented as of this encounter
--- OUTSIDE RECORDS SUMMARY | 2023-06-07 07:48 | External Medical Summary | Summary of Care ---
Author Name Unknown Organization [place] [address] Care Team Providers Care Market Consultant Name Role Phone Yariel Cardoza MD Primary Care Provide r Reason for Visit * Reason Comments [facility]: Acute Encounter Details Date Type Department Care Team Description 10/03/2021 Home Visit [facility], [facility] [address] [place] [address] Corrina Layne RN 132 [facility] [place] [address] Allergies Active Allergy Reactions Severity Noted Date [...] pain 120 Cap 5 12/22/2020 Active Nystatin 872286 UNIT/GM External Powder (Nystop)Indications: Candidal skin infection [...] mRNA, LNP-s, No Pre serve, 2-Dose Series ([employer]) 09/13/2021,12/16/2020,11/25/2020 Pneumococcal Conjugate Vacc, 13 Valent [...] Sign Reading Time Taken Comments Blood Pressure 118/70 10/03/2021 12:30 PM EST Pulse 88 10/03/2021 12:30 PM EST Temperature 37 C (98.6 F) 10/03/2021 12:30 PM EST Respiratory Rate 20 10/03/2021 12:30 PM EST Oxygen Saturation 98% 10/03/2021 12:30 PM EST Inhaled Oxygen Concentration - - Weight - - Height - - Body Mass Index - - documented in this encounter Progress Notes * Corrina Layne RN - 10/03/2021 5:30 PM EST [facility] Metal Trades InstructorInverter And Clipper Visit Date: 10/03/2021 Time: 12:43 PM Name: Jayla Hayes : 1945 Current Concerns: Patient with hx of COPD being seen for acute visit today after daughter called into [facility] to report worsening of productive cough after being on day 6 of 10 days of Augmentin. Pt started on augmentin and tamiflu (completed) on 09/27/21. Viral pathogen panel negative. Chest xray done-mild biapical pleural thicking, no acute cardiopulmonary disease. Pt with +fatigue, +pc-green -yellow thick sputum, audible wheezing. Afebrile with visit. Denies chills or fever. Has had increased oxygen demand due to feeling sob. Lost pulse ox so no actual readings. Vitals : 118/70, 98.6-88-20, spo2 98% on 2Lpm. Lungs very diminished with some exp wheezes in upperlobes. Message to [facility] with above assessment findings. With question about adding steroids. Orders received for repeat chest xray, zpack and prednisone. Will schedule 24 and 48 hour follow up calls. Problems/Symptoms: Review of Systems Constitutional: Negative for chills and fever. HENT: Positive for congestion. Respiratory: Positive for cough, chest tightness, shortness of breath and wheezing. Negative for choking. Neurological: Positive for headaches. Physical Exam: Physical Exam HENT: Mouth/Throat: Mouth: Mucous membranes are moist. Pharynx: Oropharynx is clear. Cardiovascular: Rate and Rhythm: Normal rate and regular rhythm. Pulses: Normal pulses. Pulmonary: Effort: Pulmonary effort is normal. Breath sounds: Wheezing present. Comments: diminished Abdominal: General: Bowel sounds are normal. There is no distension. Palpations: Abdomen is soft. Neurological: Mental Status: She is alert. Home Interventions Provided: Oral Medications: Antibiotic and COPD Rescue Kit Ordered Lab/Imaging Ordered repeat chest xray Consulted PCP/Specialist Reinforced current Plan of Care, including self-management and medication regimen Referrals Needed: NA Treatment plan: duoneb every 4 hours while awake Stay hydrated-lots of water to thin secretions finishing and shipping supervisor and start zpack, prednisone brittney Repeat chest xray-mobile. Sent to scheduling to arrange 24 and 48 hour follow up calls Corrina Layne RN 10/03/2021 12:43 PM documented in this encounter Plan of Treatment Upcoming Encounters Date Type Specialty Care Team Description 10/04/2021 Scheduled Telephone [facility] [place] [address] 10/05/2021 Scheduled Telephone [facility] [facility], [place] [address] [place] [address] 10/16/2021 Office Visit Family Medicine Yariel Cardoza MD [address] [place] [address] [place] [address] Scheduled Procedures Name Priority Associated Diagnoses Date/Ti [...] Documents on File Type Date Recorded 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
--- OUTSIDE RECORDS SUMMARY | 2023-06-07 07:48 | External Medical Summary | Summary of Care ---
Author Name Unknown Organization [place] [address] Care Team Providers Care Pen Tester Name Role Phone Yariel Cardoza MD Primary Care Provide r Reason for Visit * Reason Onset Date Comments COVID-19 Screening 10/02/2021 Encounter Details Date Type Department Care Team Description 10/02/2021 Telephone COVID19 Screening [facility] DEPT CLOSED 07/18/21 [address] [place] [id number], Automated Provider COVID-19 Screening Allergies Active Allergy [...] pain 120 Cap 5 12/22/2020 Active Nystatin 569371 UNIT/GM External Powder (Nystop)Indications: Candidal skin infection [...] days. 10 Capsule 0 09/27/2021 1 Active Promethazine-Codeine 6.25-10 MG/5ML Oral SyrupIndications:Vir al URI with cough Take 5 mL by mouth 4 times a day as needed for Cough for up to 12 days. 120 mL 1 10/02/2021 2 Active documented as of this encounter [...] mRNA, LNP-s, No Pre serve, 2-Dose Series ([employer]) 09/13/2021,12/16/2020,11/25/2020 Pneumococcal Conjugate Vacc, 13 Valent (Prevnar) [...] Notes * Telephone Encounter - Covid Results [facility] - 10/02/2021 11:05 PM EST Outreach Attempts Oct 02 2021 9:04AM - Fail to reach patient IVR Message: Unsuccessful contact, no education provided documented in this encounter Plan of Treatment Upcoming Encounters Date Type Specialty Care Team Description 10/16/2021 Office Visit Family Medicine Yariel Cardoza MD [address] [place] [address] Dr Henriquez, [place] [phone] Scheduled Procedures Name Priority Associated Diagnoses Date/Ti [...] Documents on File Type Date Recorded Patient Marble Mason Expl 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 Directive Advanced Directive Advanced Directive Care Teams Pen Tester Relationship Specialty Start Date End Date Yariel Cardoza MD [address] [place] [address] [place] [address] PCP - General Family Medicine 12/01/18 documented as of this encounter
--- OUTSIDE RECORDS SUMMARY | 2023-06-07 07:48 | External Medical Summary | Summary of Care ---
Author Name Unknown Organization [place] [address] Care Team Providers Care Rn Primary Care Name Role Phone Yariel Cardoza MD Primary Care Provide r Reason for Referral * Medication Prior Authorization - Closed Specialty Diagnoses / Procedures Referred By Matt t Referred To Contact Diagnoses Viral URI with cough Eligio Robledo MD [address] [place] [address] [place] [address] Referral ID Status Reason Start Date Expiration Date Visits Re quested Visits Authorized [id number] Closed 1 1 Reason for Visit * Reason Onset Date Comments Advice 10/02/2021 Encounter Details Date Type Department Care Team Description 10/02/2021 Telephone Family Medicine [address] [place] [phone] Yariel Cardoza MD [address] [place] [address] [place] [address] Advice Allergies Active Allergy Reactions Severity Noted [...] pain 120 Cap 5 12/22/2020 Active Nystatin 677616 UNIT/GM External Powder (Nystop)Indications: Candidal skin infection [...] for 10 days. 20 Tablet 0 09/27/2021 Active Oseltamivir Phosphate 75 MG Oral Capsule [...] mRNA, LNP-s, No Pre serve, 2-Dose Series ([email or web address]) 09/13/2021,12/16/2020,11/25/2020 Pneumococcal Conjugate Vacc, 13 Valent (Prevnar) [...] encounter Miscellaneous Notes * Telephone Encounter - Claribel Tovar LPN - 10/02/2021 1:44 PM EST Pt aware. * Telephone Encounter - Eligio Robledo MD - 10/02/2021 12:24 PM EST CXR was normal. Test for Covid and flu are negative. I sent out a cough syrup. * Telephone Encounter - ANAYA Jeffers - 10/02/2021 12:09 PM EST Pt saw Josie 09/27 * Telephone Encounter - VIRA Perez - 10/02/2021 12:04 PM EST Patient called in and her cough is getting worse and was wondering if there is anything else that she can take that may help her. Is Sudafed or Robitussin safe to take? 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
--- OUTSIDE RECORDS SUMMARY | 2023-06-07 07:48 | External Medical Summary | Summary of Care ---
Author Name Unknown Organization [place] [address] Care Team Providers Care Combination Welder Apprentice Name Role Phone Yariel Cardoza MD Primary Care Provide r Reason for Visit * Reason Onset Date Comments [facility]: Acute 10/03/2021 Encounter Details Date Type Department Care Team Description 10/03/2021 Telephone [facility] [place] [address] [facility] [place] [address] Mayank Bunn MD [address] [place] [address] [facility]: Acute Allergies Active Allergy Reactions Severity Noted Date [...] pain 120 Cap 5 1 Active Nystatin 966299 UNIT/GM External Powder (Nystop)Indications :Candidal skin infection [...] 10 Tablet 0 1 10/08/19 22 Active predniSONE 50 MG Oral Tablet [...] mRNA, LNP-s, No Pre serve, 2-Dose Series ([place]) 09/13/2021,12/16/2020,11/25/2020 Pneumococcal Conjugate Vacc, 13 Valent (Prevnar) [...] * Telephone Encounter - VIRA Jacobo - 10/03/2021 2:04 PM EST Order called and faxed to [facility] Claim number [id number] VIRA Jacobo * Telephone Encounter - Mayank Perez MD - 10/03/2021 1:00 PM EST [facility] Phone Encounter Background information: TT Corrina Layne RN hy of COPD . Seen acutely . Worsening productive cough . She has been on Augmentin for last 6 days. Completed tamiflu on 09/27/21. Chest x ray mild bi apical pleural thickening. No acute cardiopulmonary disease. + fatigue yellow green thick sputum Audible wheezing Afebrile Increased oxygen demand . She lost her pulse ox and oes not have readings. Vitals 118/70 98.6 88 20 Oxygen sat 98% on 2 LPM Lungs very diminished with some exp wheezes in upper lobes Assessment and Recommendations: ICD-10-CM 1. COPD with acute bronchitis (HCC) J44.0 J20.9 Plan XR Chest 2 Views Azithromycin 250 MG Oral Tablet (Zithromax Z-Nilson) predniSONE 20 MG Oral Tablet (Deltasone) To Do: Please schedule a mobil Chest x ray Follow up phone call tomorrow and a visit this week Mayank Robles MD [facility] - [facility] 10/03/2021 Routed to pt's [facility] Care Team and additional relevant parties as an FYI documented in this encounter Plan of Treatment Upcoming Encounters Date Type Specialty Care Team Description 10/03/2021 Home Visit [facility] Corrina Layne RN [address] [facility] [place] [address] 10/04/2021 Scheduled Telephone [facility], [facility] [address] [place] [address] 10/05/2021 Scheduled Telephone [facility], [facility] [address] [facility] [place] [address] 10/16/2021 [facility] [address] [place] [address] [place] [address] Scheduled Orders Name Type Priority Associated Diagnoses Orde r Schedule XR CHEST 2 VIEWS Medical Imaging Routine COPD with acute bronchitis (HCC) Ordered: 10/03/2021 Scheduled Procedures Name Priority Associated Diagnoses Date/Ti [...] as of this encounter Visit Diagnoses Diagnosis COPD with acute bronchitis (HCC)- Primary Obstructive chronic bronchitis with acute bronchitis documented in this encounter Advance Directives Documents on File Type Date Recorded Patient Hospital Manager Expl 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 Directive Advanced Directive Advanced Directive Care Teams Combination Welder Apprentice Relationship Specialty Start Date End Date Yariel Cardoza MD [address] [place] [address] [place] [address] PCP - General Family Medicine 12/01/18 documented as of this encounter
--- OUTSIDE RECORDS SUMMARY | 2023-06-07 07:48 | External Medical Summary | Summary of Care ---
Author Name Unknown Organization [place] [address] Care Team Providers Care Icer Air Conditioning Name Role Phone Yariel Cardoza MD Primary Care Provide r Reason for Visit * Reason Onset Date Comments [facility]: Maintenance 10/03/2021 Encounter Details Date Type Department Care Team Description 10/03/2021 Telephone [facility], [facility] [address] [facility] [place] [address] Magda Arreola LPN [facility]: Maintenance [...] pain 120 Cap 5 12/22/2020 Active Nystatin 984344 UNIT/GM External Powder (Nystop)Indications: Candidal skin infection [...] mRNA, LNP-s, No Pre serve, 2-Dose Series (nivio) 09/13/2021,12/16/2020,11/25/2020 Pneumococcal Conjugate Vacc, 13 Valent (Prevnar) [...] Miscellaneous Notes * Telephone Encounter - Magda Arreola LPN [...] Visit [facility] Corrina Layne RN [address] [place] [address] [place] [address] 10/16/2021 Office Visit Family Medicine Yariel Cardoza MD [address] [place] [address] [place] [address] Scheduled Procedures Name Priority Associated Diagnoses Date/Ti [...] Documents on File Type Date Recorded 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
--- OUTSIDE RECORDS SUMMARY | 2023-06-07 07:48 | External Medical Summary | Summary of Care ---
Author Name Unknown Organization [place] [address] Care Team Providers Care Janitor Helper Name Role Phone Yariel Cardoza MD Primary Care Provide r Reason for Visit * Reason Onset Date Comments Advice 10/03/2021 Encounter Details Date Type Department Care Team Description 10/03/2021 Telephone [facility], [facility] [address] [place] [address] Corrina Layne RN [address] [facility] [place] [address] Advice Allergies Active Allergy Reactions Severity Noted [...] pain 120 Cap 5 12/22/2020 Active Nystatin 632493 UNIT/GM External Powder (Nystop)Indications: Candidal skin infection [...] mRNA, LNP-s, No Pre serve, 2-Dose Series ([email or web address]) 09/13/2021,12/16/2020,11/25/2020 Pneumococcal Conjugate Vacc, 13 Valent (Prevnar) [...] Telephone Encounter - Corrina Layne RN - 10/03/2021 2:01 PM EST Repeat chest xray ordered. Scheduling-please arrange mobile xray. * Telephone Encounter - Corrina Layne RN - 10/03/2021 12:57 PM EST Name: Jayla Hayes : 1945 Current Concerns: Patient with hx of COPD being seen for acute visit today after daughter called into [facility] to report worsening of productive cough [...] some exp wheezes in upperlobes. Message to [facility] with above assessment findings. ? Need steroid added documented in this encounter Plan of Treatment Upcoming Encounters Date Type Specialty Care Team Description 10/03/2021 Home Visit [facility] Corrina Layne RN [address] [place] [address] 10/04/2021 Scheduled Telephone [facility] Sciences Manager, [facility] [place] [address] 10/05/2021 Scheduled Telephone [facility] Health Sciences Manager, [place] [address] [address] [place] [address] 10/16/2021 [facility] [address] [place] [address] [place] [address] Scheduled Procedures Name Priority Associated Diagnoses Date/Ti [...] Documents on File Type Date Recorded Patient Account Executive Sales Representative Expl anation Advanced Directive Advanced [...] Directive Advanced Directive Advanced Directive Care Teams Janitor Helper Relationship Specialty Start Date End Date Yariel Cardoza MD [address] [place] [address] [place] [phone] PCP - General Family Medicine 12/01/18 documented as of this encounter
--- OUTSIDE RECORDS SUMMARY | 2023-06-07 07:49 | External Medical Summary | Summary of Care ---
Author Name Unknown Organization [place] [address] Care Team Providers Care Cannon Pinion Adjuster Name Role Phone Yariel Cardoza MD Primary Care Provide r Reason for Visit * Reason Onset Date Comments [facility]: Maintenance 09/14/2021 Encounter Details Date Type Department Care Team Description 09/14/2021 Scheduled Telephone [facility], [facility] [address] [facility] [place] [address] Coordinator, [facility] 132 [facility] [place] [address] Allergies Active Allergy Reactions Severity Noted Date Comments Adhesive Tape 06/29/2003 Sensitive to Naproxen Hives 05/28/2015 Ivp Dye Hives 08/20/2000 Latex Other (Please comment) 01/05/2015 Contact rash Ibuprofen Rash 01/05/2015 documented as of this encounter (statuses as of 09/14/2021) Medications Medication Sig Dispensed Refills Start Date [...] pain 120 Cap 5 12/22/2020 Active Nystatin 346814 UNIT/GM External Powder (Nystop)Indications: Candidal skin infection [...] for Nausea. 30 Tablet 0 09/13/2021 Active documented as of this encounter (statuses as of 09/14/2021) Active Problems Problem Noted Date History of [...] as of this encounter (statuses as of 09/14/2021) Resolved Problems Problem Noted Date Resolved Date [...] as of this encounter (statuses as of 09/14/2021) Immunizations Name Administration Dates Next Due COVID-19 mRNA, LNP-s, No Pre serve, 2-Dose Series (Pfizer) 12/16/2020,11/25/2020 Pneumococcal Conjugate Vacc, 13 Valent (Prevnar) 09/21/2015 Pneumococcal Polysaccharide PPV23 (Pneumovax) Seasonal Influenza, Quadrivalent Hd (Fluzone Hd) 06/20/2021 Seasonal Influenza, Quadriva lent, No Preserve, 6 Mons & Above, IM 07/28/2018,07/31/2017 Seasonal Influenza, Quadriva lent, No Preserve, Adjuvanted, 65+ Yrs, IM 08/12/2020 Seasonal Influenza, Quadrivalent, No Preserve, I M 07/21/2016,07/20/2015 Seasonal Influenza, Split, IIV3, With Preserve, Inj 08/17/2006,08/05/2003 Seasonal Influenza, Trivalent, Adjuvanted, 65+ y rs 07/10/2019 TD - Tetanus/Diptheria (ADULT) 05/03/2004 0 [...] Telephone Encounter - Magda Arreola LPN - 09/14/2021 11:19 AM EST 24 hour follow-up call s/p COVID-19 vaccine. Spoke with Jayla. Feeling well. Denies fever or body aches. Will call for any concerns. documented in this encounter Plan of Treatment Upcoming Encounters Date Type Specialty Care Team Description 09/20/2021 [facility] [place] [address] 10/04/2021 Office Visit [facility] [address] 10/16/2021 Office Visit Family Medicine Yariel Cardoza MD [address] [place] [address] [place] [phone] Scheduled Procedures Name Priority Associated Diagnoses Date/Ti me COLONOSCOPY FLEXIBLE PROXIMAL DIAGNOSTIC Recall History of colon polyps Health Maintenance Due Date Last Done Comments Zoster Vaccines (1 of 2) 1993 *ADVANCE DIRECTIVE NOT ON FILE 12/23/2015 *DEPRESSION SCREENING,ANNUAL FOR PTS 12 AND OVER 08/14/2020 COVID-19 Vaccine (3 - Booster for Pfizer series) 06/18/2021 12/16/2020, 11/25/2020 Dexa Scan 08/17/2022 08/17/2015 DIABETES SCREEN EVERY 3 YRS-AGE 45 AND ABOVE 06/06/2024 06/06/2021, 12/26/2020, 12/26/2020, Additional history exists COLONOSCOPY-EVERY 3 YRS AGES 18-100 08/28/2024 08/28/2021, 06/30/2021, 06/15/2021, Additional history exists DTaP,Tdap,and Td Vaccines (2 - Td or Tdap) 04/19/2028 04/19/2018, 05/03/2004, 05/03/2004 Pneumococcal Vaccine: 65+ Years Completed 03/28/2017, 09/21/2015 Influenza Vaccine (FLU shot) Completed , 08/12/2020, 08/12/2020, Additional history exists MENINGOCOCCAL (MENACTRA/MENVEO) Aged Out No longer eligible based on patient's age to complete this topic documented as of this encounter Implants Not on filedocumented as of this encounter Advance Directives Documents on File Type Date Recorded Patient Eyelet Maker Expl 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 Directive Advanced Directive Advanced Directive Care Teams Cannon Pinion Adjuster Relationship Specialty Start Date End Date Yariel Cardoza MD [address] [place] [address] [place] [address] PCP - General Family Medicine 12/01/18 documented as of this encounter
--- OUTSIDE RECORDS SUMMARY | 2023-06-07 07:49 | External Medical Summary | Summary of Care ---
Author Name Unknown Organization [place] [address] Care Team Providers Care Screwhead Polisher Name Role Phone Yariel Cardoza MD Primary Care Provide r Reason for Visit * Reason Onset Date Comments No Show 09/20/2021 Encounter Details Date Type Department Care Team Description 09/20/2021 Home Visit [facility], [facility] [address] [place] [address] Corrina Layne RN 132 [facility] [place] [address] NO SHOW/FAILED TO KEEP APPOINTMENT* Allergies Active Allergy Reactions Severity Noted Date Comments Adhesive Tape 06/29/2003 Sensitive to Naproxen Hives 05/28/2015 Ivp Dye Hives 08/20/2000 Latex Other (Please comment) 01/05/2015 Contact rash Ibuprofen Rash 01/05/2015 documented as of this encounter (statuses as of 09/20/2021) Medications Medication Sig Dispensed Refills Start Date [...] pain 120 Cap 5 12/22/2020 Active Nystatin 273743 UNIT/GM External Powder (Nystop)Indications: Candidal skin infection [...] as of this encounter (statuses as of 09/20/2021) Active Problems Problem Noted Date History of [...] as of this encounter (statuses as of 09/20/2021) Resolved Problems Problem Noted Date Resolved Date [...] as of this encounter (statuses as of 09/20/2021) Immunizations Name Administration Dates Next Due COVID-19 mRNA, LNP-s, No Pre serve, 2-Dose Series (Vizerra) 09/13/2021,12/16/2020,11/25/2020 Pneumococcal Conjugate Vacc, 13 Valent (Prevnar) [...] Progress Notes * Corrina Layne RN - 09/20/2021 6:04 PM EST Patient failed to keep scheduled appointment. Called patient's home. Left VM. Went to patient's home. No answer at door. Corrina Layne, RN documented in this encounter Plan of Treatment Upcoming Encounters Date Type Specialty Care Team Description 10/04/2021 Office Visit Dermatology Marie Conrad MD [address] [facility] [place] [address] 10/16/2021 Office Visit Family Medicine Yariel Cardoza MD [address] [place] [address] [place] [address] Scheduled Procedures Name Priority Associated Diagnoses Date/Ti me COLONOSCOPY FLEXIBLE PROXIMAL DIAGNOSTIC Recall History of colon polyps Health Maintenance Due Date Last Done Comments Zoster Vaccines (1 of 2) 1993 *ADVANCE DIRECTIVE NOT ON FILE 12/23/2015 *DEPRESSION SCREENING,ANNUAL FOR PTS 12 AND OVER 08/14/2020 Dexa Scan 08/17/2022 08/17/2015 DIABETES SCREEN EVERY [...] as of this encounter Visit Diagnoses Diagnosis NO SHOW/FAILED TO KEEP APPOINTMENT- Primary documented in this encounter Advance Directives Documents on File Type Date Recorded Patient Bone Tender Expl 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 Directive Advanced Directive Advanced Directive Care Teams Screwhead Polisher Relationship Specialty Start Date End Date Yariel Cardoza MD [address] [place] [address] [place] [address] PCP - General Family Medicine 12/01/18 documented as of this encounter
--- OUTSIDE RECORDS SUMMARY | 2023-06-07 07:49 | External Medical Summary | Summary of Care ---
Author Name Unknown Organization [place] [address] Care Team Providers Care Tissue Coordinator Name Role Phone Yariel Cardoza MD Primary Care Provide r Encounter Details Date Type Department Care Team Description 09/13/2021 Home Visit [facility], [facility] 132 [facility] [place] [address] Deborah Matias, RN 132 [facility] [place] [address] Need for vaccination* Allergies Active Allergy Reactions Severity Noted Date Comments Adhesive Tape 06/29/2003 Sensitive to Naproxen Hives 05/28/2015 Ivp Dye Hives 08/20/2000 Latex Other (Please comment) 01/05/2015 Contact rash Ibuprofen Rash 01/05/2015 documented as of this encounter (statuses as of 09/15/2021) Medications Medication Sig Dispensed Refills Start Date [...] pain 120 Cap 5 12/22/2020 Active Nystatin 330255 UNIT/GM External Powder (Nystop)Indications :Candidal skin infection [...] FOR DIZZINESS/VERTIGO 10 Tab 0 06/06/2021 Active Atenolol 25 MG Oral Tablet (Tenormin)Indicatio [...] 07/07/2021 Active predniSONE 50 MG Oral Tablet (Deltasone)Indicati [...] EVERY DAY 90 Tablet 1 09/08/2021 Active documented as of this encounter (statuses as of 09/15/2021) Active Problems Problem Noted Date History of [...] as of this encounter (statuses as of 09/15/2021) Resolved Problems Problem Noted Date Resolved Date [...] as of this encounter (statuses as of 09/15/2021) Immunizations Name Administration Dates Next Due COVID-19 mRNA, LNP-s, No Pre serve, 2-Dose Series ([employer]) 09/13/2021,12/16/2020,11/25/2020 Pneumococcal Conjugate Vacc, 13 Valent [...] as of this encounter Progress Notes * Deborah Matias RN - 09/15/2021 4:34 PM EST documented in this encounter Plan of Treatment Upcoming Encounters Date Type Specialty Care Team Description 09/20/2021 Home Visit [facility] Corrina Layne RN [address] [facility] [place] [address] 10/04/2021 Office Visit Dermatology Marie Conrad MD [address] [facility] [place] [address] 10/16/2021 Office Visit Family Medicine Yariel Cardoza MD [address] [place] [address] [place] [address] Scheduled Procedures Name Priority Associated Diagnoses Date/Ti [...] this encounter Visit Diagnoses Diagnosis Need for vaccination- Primary Need for prophylactic vaccination and inoculation against unspecified single disease documented in this encounter Advance Directives Documents on File Type Date Recorded Patient Ship'S Cook Expl 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 Directive Advanced Directive Advanced Directive Care Teams Tissue Coordinator Relationship Specialty Start Date End Date Yariel Cardoza MD [address] [place] [address] [place] [address] PCP - General Family Medicine 12/01/18 documented as of this encounter
--- OUTSIDE RECORDS SUMMARY | 2023-06-07 07:49 | External Medical Summary | Summary of Care ---
Author Name Unknown Organization [place] [address] Care Team Providers Care Warehouse Engineer Name Role Phone Yariel Cardoza MD Primary Care Provide r Reason for Visit * Reason Comments Acute Encounter Details Date Type Department Care Team Description 09/27/2021 Office Visit Family Medicine [address] [place] [address] Jsoie Ryan PA-C [address] [place] [address] [place] [phone] Viral illness* Allergies Active Allergy Reactions Severity Noted Date Comments Adhesive Tape 06/29/2003 Sensitive to Naproxen Hives 05/28/2015 Ivp Dye Hives 08/20/2000 Latex Other (Please comment) 01/05/2015 Contact rash Ibuprofen Rash 01/05/2015 documented as of this encounter (statuses as of 09/27/2021) Medications Medication Sig Dispensed Refills Start Date [...] pain 120 Cap 5 12/22/2020 Active Nystatin 909857 UNIT/GM External Powder (Nystop)Indications: Candidal skin infection [...] as of this encounter (statuses as of 09/27/2021) Active Problems Problem Noted Date History of [...] as of this encounter (statuses as of 09/27/2021) Resolved Problems Problem Noted Date Resolved Date [...] as of this encounter (statuses as of 09/27/2021) Immunizations Name Administration Dates Next Due COVID-19 mRNA, LNP-s, No Pre serve, 2-Dose Series (Leosphere) 09/13/2021,12/16/2020,11/25/2020 Pneumococcal Conjugate Vacc, 13 Valent (Prevnar) [...] Sign Reading Time Taken Comments Blood Pressure 112/80 09/27/2021 11:29 AM EST Pulse 84 09/27/2021 11:29 AM EST Temperature 36.8 C (98.3 F) 09/27/2021 1 1:29 AM EST Respiratory Rate - - Oxygen Saturation 91% 09/27/2021 11: 29 AM EST Inhaled Oxygen Concentration - - Weight 90.2 kg (198 lb 12.8 oz) 021 11:29 AM EST Height - - Body Mass Index 37.56 06/20/2021 9:03 AM EDT documented in this encounter Progress Notes * Josie Ryan PA-C - 09/27/2021 11:31 AM EST Nursing Notes: Salma Alaniz LPN 09/27/21 1129 Sign at exiting of workspace Pt c/o cough, cold/sinus symptoms x 2 days. Pt here today with cough, chest congestion, nasal/head congestion, sore throat, headache for the past 2 days. Pt denies fever, chills, nausea, vomiting, diarrhea, chest pain, SOB. She just had covid booster 2 weeks ago. Pt states that there are other members of her family who are sick. Review of patient's allergies indicates: Allergen Reactions Adhesive Tape Sensitive to Aleve [Naproxen] Hives Ivp Dye Hives Latex Other (Please comment) Contact rash Motrin [Ibuprofen] Rash Current Outpatient Medications Medication Sig Dispense Refill oxygen GAS Use 2 L/min(Oxygen) as directed continuous. 1 Each 0 budesonide (PULMICORT) 0.5 MG/2ML nebulizer solution INHALE ONE UNIT DOSE VIAL VIA NEBULIZER TWO TIMES A DAY. 3 VENTOLIN HFA 108 (90 Base) MCG/ACT inhaler [...] for abdominal pain 120 Cap 5 Nystatin 176163 UNIT/GM External Powder (Nystop) APPLY TOPICALLY TO [...] HOURS NEEDED FOR DIZZINESS/VERTIGO 10 Tab 0 Atenolol 25 MG Oral Tablet (Tenormin) Take 1 Tab by mouth daily. 90 Tab 3 Losartan Potassium 50 MG Oral Tablet (Cozaar) [...] by mouth at bedtime. 90 Tab 1 predniSONE 50 MG Oral Tablet (Deltasone) Take 1 tab 13 hrs before scan, take 1 tab 7 hrs beforescan, take 1 tab 1 hr before scan with Benadryl 3 Tab 0 Omeprazole 20 MG Oral Capsule Delayed [...] as needed for Nausea. 30 Tablet 0 No current facility-administered medications for this visit. 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 BENIGN HYPERTENSION 01/28/2002 Bilateral carpal tunnel syndrome 07/20/2015 COPD (chronic obstructive pulmonary disease) ([facility]) COPD, severe ([facility]) 12/21/2015 COPD, severity to be determined ([facility]) 07/20/2015 Dyslipidemia, goal LDL below 100 10/16/2015 Dyslipidemia, goal LDL below 130 08/22/2015 FAM HX-CARDIOVAS DIS NEC 01/28/2002 Generalized osteoarthritis 08/22/2015 GERD (gastroesophageal reflux disease) 07/20/2015 Hypertrophy of breast 08/31/2003 IBS (irritable bowel syndrome) 07/20/2015 Kidney disease, chronic, stage III (GFR 30-59 ml/min) ([facility]) 10/16/2015 Kidney stone Lumbar degenerative disc disease 02/06/2016 Lumbar facet arthropathy ([facility]) 02/06/2016 Lumbar spinal stenosis 02/18/2017 Mixed incontinence urge and stress (male)(female) 07/20/2015 Multiple thyroid nodules 09/09/2016 Obesity, Class II, BMI 35.0-39.9, with comorbidity (see actual BMI) 01/19/2016 Primary osteoarthritis of right knee 02/18/2017 Pulmonary hypertension ([facility]) 05/07/2017 Reflux esophagitis 01/28/2002 Slow transit [...] Types: Cigarettes Quit date: 10/07/1995 Years since quittin.9 Smokeless tobacco: Never Used Tobacco comment: quit [...] Housing Stability: Not on file O:Blood pressure 112/80, pulse 84, temperature 36.8 C (98.3 F), weight 90.2 kg (198 lb 12.8 oz), SpO2 91 %. GENERAL: alert and no distress NECK: supple, no adenopathy EYES: PERRLA, Conjunctiva are pink and non-injected, sclera clear EARS: External ears normal, Canals clear, TM's Normal NOSE: no mucosal erythema, no mucosal edema, no purulent discharge OROPHARYNX: no exudate, no erythema, lips, buccal mucosa, and tongue normal and mucous membranes are moist HEART: regular rate & rhythm, no murmurs and no gallops LUNGS: chest symmetric with normal AP diameter, no chest deformities noted, no chest wall tenderness, lungs clear to auscultation A:Viral illness (Primary) - XR CHEST 2 VIEWS - INFLUENZA A/B RSV SARS-COV2,PCR; Future; Expected date: 09/27/2021 - Benzonatate 100 MG Oral Capsule (Tessalon Edelmira); Take 1 Capsule by mouth 3 times a day as needed for Cough. - INFLUENZA A/B RSV SARS-COV2,PCR Will xray chest. Nasal swab for flu, covid, rsv. Any questions/problems, please call. If anything changes, worsens, develops new sx, please call MATT. Keikosalchay as needed. If this persists or worsens,please call MATT. Pulse ox is a little on the low side but she does have severe COPD. Since she does have COPD, I am going to start on abx and tamiflu to be safe. Follow Up: Return if symptoms worsen or fail to improve. Josie Ryan PA-C documented in this encounter Nursing Notes * Salma Alaniz LPN - 09/27/2021 11:28 AM EST Pt c/o cough, cold/sinus symptoms x 2 days. documented in this encounter Plan of Treatment Upcoming Encounters Date Type Specialty Care Team Description 10/16/2021 Office Visit Family Medicine Yariel Cardoza MD [address] [place] [address] [place] [phone] Pending Results Name Type Priority Associated Diagnoses Date /Time XR CHEST 2 VIEWS Medical Imaging Routine Viral illness 09/27/2021 11:52 AM EST INFLUENZA A/B RSV SARS-COV2,PCR Lab Routine Viral illness 09/27/2021 11:36 AM EST Scheduled Orders Name Type Priority Associated Diagnoses Orde r Schedule INFLUENZA A/B RSV SARS-COV2,PCR Lab Routine Viral illness Expected: 09/27/2021 (Approximate), Expires: 09/27/2022 Scheduled Procedures Name Priority Associated Diagnoses Date/Ti [...] of this encounter Visit Diagnoses Diagnosis Viral illness- Primary Unspecified viral infection, in conditions classified elsewhere and of unspecified site documented in this encounter Advance Directives Documents on File Type Date Recorded Patient Estimator Expl 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 Directive Advanced Directive Advanced Directive Care Teams Warehouse Engineer Relationship Specialty Start Date End Date Yariel Cardoza MD [address] [place] [address] [place] [phone] PCP - General Family Medicine 12/01/18 documented as of this encounter
--- OUTSIDE RECORDS SUMMARY | 2023-06-07 07:49 | External Medical Summary | Summary of Care ---
Author Name Unknown Organization [place] [address] Care Team Providers Care Automobile Body Repairer Name Role Phone Yariel Cardoza MD Primary Care Provide r Encounter Details Date Type Department Care Team Description 09/28/2021 Telephone Family Medicine [address] [address] Yariel Cardoza MD [address] [place] [address] [place] [address] Allergies Active Allergy Reactions Severity Noted Date Comments Adhesive Tape 06/29/2003 Sensitive to Naproxen Hives 05/28/2015 Ivp Dye Hives 08/20/2000 Latex Other (Please comment) 01/05/2015 Contact rash Ibuprofen Rash 01/05/2015 documented as of this encounter (statuses as of 09/28/2021) Medications Medication Sig Dispensed Refills Start Date [...] pain 120 Cap 5 12/22/2020 Active Nystatin 558533 UNIT/GM External Powder (Nystop)Indications: Candidal skin infection [...] as of this encounter (statuses as of 09/28/2021) Active Problems Problem Noted Date History of [...] as of this encounter (statuses as of 09/28/2021) Resolved Problems Problem Noted Date Resolved Date [...] as of this encounter (statuses as of 09/28/2021) Immunizations Name Administration Dates Next Due COVID-19 mRNA, LNP-s, No Pre serve, 2-Dose Series (LegalFácil) 09/13/2021,12/16/2020,11/25/2020 Pneumococcal Conjugate Vacc, 13 Valent (Prevnar) [...] Telephone Encounter - Claribel Tovar LPN - 09/28/2021 3:41 PM EST Pt aware of swab results. She said she took 1 augmentin and threw up, but only had a banana before she took it. She said she has taken it in the past without issues. I advised she try it again later today and take it after she eats toast or crackers and told her to call us if she gets sick again. Pt agreed with plan. documented in this encounter Plan of Treatment Upcoming Encounters Date Type Specialty Care Team Description 10/16/2021 Office Visit Family Medicine Yariel Cardoza MD [address] [place] [address] [place], [place] [address] Scheduled Procedures Name Priority Associated Diagnoses [...] Documents on File Type Date Recorded Patient Solid Waste Facility Operator Expl 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 Directive Advanced Directive Advanced Directive Care Teams Automobile Body Repairer Relationship Specialty Start Date End Date Yariel Cardoza MD [address] [place] [address] [place] [id number] PCP - General Family Medicine 12/01/18 documented as of this encounter
--- OUTSIDE RECORDS SUMMARY | 2023-06-07 07:49 | External Medical Summary | Summary of Care ---
Author Name Unknown Organization [place] [address] Care Team Providers Care Wire Tinner Name Role Phone Yariel Cardoza MD Primary Care Provide r Reason for Visit * Reason Comments eRx-Medication Refill Encounter Details Date Type Department Care Team Description 09/26/2021 Refill Family Medicine [address] [place] [address] Yareil Cardoza MD [address] [place] [address] [place] [phone] HTN, goal below 140/90 Allergies Active Allergy Reactions Severity Noted Date Comments Adhesive Tape 06/29/2003 Sensitive to Naproxen Hives 05/28/2015 Ivp Dye Hives 08/20/2000 Latex Other (Please comment) 01/05/2015 Contact rash Ibuprofen Rash 01/05/2015 documented as of this encounter (statuses as of 09/26/2021) Medications Medication Sig Dispensed Refills Start Date [...] pain 120 Cap 5 12/22/2020 Active Nystatin 363362 UNIT/GM External Powder (Nystop)Indications: Candidal skin infection [...] as of this encounter (statuses as of 09/26/2021) Active Problems Problem Noted Date History of [...] as of this encounter (statuses as of 09/26/2021) Resolved Problems Problem Noted Date Resolved Date [...] as of this encounter (statuses as of 09/26/2021) Immunizations Name Administration Dates Next Due COVID-19 [...] encounter Miscellaneous Notes * Telephone Encounter - Wil Lockett [facility] - 09/26/2021 1:19 PM EST Refused Prescriptions: Disp Refills amLODIPine Besylate 2.5 MG Oral Tablet (No*90 Tab*3 Sig: TAKE 1TABLET BY MOUTH EVERY DAYRefused By: WIL LOCKETT for Refusal: Refill Not Appropriate-- documented in this encounter Plan of Treatment Upcoming Encounters Date Type Specialty Care Team Description 10/04/2021 Office Visit Dermatology Marie Conrad MD [address] [place] [address] 10/16/2021 Office Visit Family Medicine Yariel Cardoza MD [address] [place] [address] [place] [address] Scheduled Procedures Name Priority Associated Diagnoses [...] Documents on File Type Date Recorded Patient Flame Cutting Supervisor Expl 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 Directive Advanced Directive Advanced Directive Care Teams Wire Tinner Relationship Specialty Start Date End Date Yariel Cardoza MD [address] [place] [address] [place] [phone] PCP - General Family Medicine 12/01/18 documented as of this encounter
--- OUTSIDE RECORDS SUMMARY | 2023-06-07 07:49 | External Medical Summary | Summary of Care ---
Author Name Unknown Organization [place] [address] Care Team Providers Care Physical Anthropologist Name Role Phone Yariel Cardoza MD Primary Care Provide r Reason for Visit * Reason Comments Acute Encounter Details Date Type Department Care Team Description 09/27/2021 Office Visit Family Medicine [address] [place] [address] Josie Ryan PA-C [address] [place] [address] [place] [phone] Viral illness* Allergies Active Allergy Reactions Severity [...] pain 120 Cap 5 12/22/2020 Active Nystatin 480331 UNIT/GM External Powder (Nystop)Indications: Candidal skin infection [...] mRNA, LNP-s, No Pre serve, 2-Dose Series (BrandFiesta) 09/13/2021,12/16/2020,11/25/2020 Pneumococcal Conjugate Vacc, 13 Valent (Prevnar) [...] for abdominal pain 120 Cap 5 Nystatin 614942 UNIT/GM External Powder (Nystop) APPLY TOPICALLY TO [...] 07/20/2015 COPD (chronic obstructive pulmonary disease) ([facility]) COPD, severe ([facility]) 12/21/2015 COPD, severity to be determined ([facility]) 07/20/2015 Dyslipidemia, goal LDL below 100 10/16/2015 Dyslipidemia, goal LDL below 130 08/22/2015 FAM HX-CARDIOVAS DIS NEC 01/28/2002 Generalized osteoarthritis 08/22/2015 GERD (gastroesophageal reflux disease) 07/20/2015 Hypertrophy of breast 08/31/2003 IBS (irritable bowel syndrome) 07/20/2015 Kidney disease, chronic, stage III (GFR 30-59 ml/min) ([facility]) 10/16/2015 Kidney stone Lumbar degenerative disc disease 02/06/2016 Lumbar facet arthropathy ([facility]) 02/06/2016 Lumbar spinal stenosis 02/18/2017 Mixed incontinence urge and stress (male)(female) 07/20/2015 Multiple thyroid nodules 09/09/2016 Obesity, Class II, BMI 35.0-39.9, with comorbidity (see actual BMI) 01/19/2016 Primary osteoarthritis of right knee 02/18/2017 Pulmonary hypertension ([facility]) 05/07/2017 Reflux esophagitis 01/28/2002 Slow transit constipation [...] Visit Family Medicine Yariel Cardoza MD [address] [place] [address] [place] [phone] Pending Results Name Type Priority Associated Diagnoses Date /Time INFLUENZA A/B RSV SARS-COV2,PCR Lab Routine Viral [...] Priority Date/Time Associated Diagnosis Comments XR CHEST 2 VIEWS Routine 09/27/2021 11:5 2 AM EST Viral illness documented in this encounter Results * XR CHEST 2 VIEWS (09/27/2021 11:52 AM EST) Anatomical Region Laterality Modality Chest Computed Radiogr aphy Specimen Impressions [facility] - 09/27/2021 5:29 PM EST IMPRESSION No acute cardiopulmonary disease. Narrative [facility] - 09/27/2021 5:29 PM EST EXAM XR CHEST 2 VIEWS - 09/27/2021 11:52 am HISTORY cough TECHNIQUE PA and lateral views of the chest were obtained. COMPARISON XR CHEST 2 VIEWS dated 07/26/2021; CHEST 2 VIEWS AP OR PA AND LATERAL dated 03/19/2017; CHEST 2 VIEWS AP OR PA AND LATERAL dated 02/02/2016 FINDINGS LINES/DEVICES:None. CARDIOMEDIASTINAL SILHOUETTE: Unchanged from previous exams. Cardiac silhouette is normal in size. PLEURA: Mild biapical pleural thickening. LUNGS: No opacities are seen. CHEST WALL/BONES: There is degenerative change in the spine. Procedure Note Colleen Paul MD - 09/27/2021 EXAM XR CHEST 2 VIEWS - 09/27/2021 11:52 am HISTORY cough TECHNIQUE PA and lateral views of the chest were obtained. COMPARISON XR CHEST 2 VIEWS dated 07/26/2021; CHEST 2 VIEWS AP OR PA AND LATERALdated 03/19/2017; CHEST 2 VIEWS AP OR PA AND LATERAL dated 02/02/2016 FINDINGS LINES/DEVICES:None. CARDIOMEDIASTINAL SILHOUETTE: Unchanged from previous exams. Cardiacsilhouette is normal in size. PLEURA: Mild biapical pleural thickening. LUNGS: No opacities are seen. CHEST WALL/BONES: There is degenerative change in the spine. IMPRESSION IMPRESSION No acute cardiopulmonary disease. [facility] documented in this encounter Visit Diagnoses Diagnosis Viral illness- Primary Unspecified viral infection, in conditions classified elsewhere and of unspecified site documented in this encounter Advance Directives Documents on File Type Date Recorded Patient Director Skills Expl 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 Directive Advanced Directive Advanced Directive Care Teams Physical Anthropologist Relationship Specialty Start Date End Date Yariel Cardoza MD [address] [place] [address] [place] [phone] PCP - General Family Medicine 12/01/18 documented as of this encounter
--- OUTSIDE RECORDS SUMMARY | 2023-06-07 07:49 | External Medical Summary ---
Author Name Unknown Address Unknown Organization K01:[facility] - [address] [place] [address] Laboratory Report Ordering Provider Test Date Status TIMOTHY TYLER 09/27/2021 11:36:17 Final Observation Date Value Abnormality Reference (Units ) Status SARS Coronavirus 2 09/27/2021 11:36:17 Negative N egative Final Performing Location [facility] - [address] [place] [address]
--- OUTSIDE RECORDS SUMMARY | 2023-06-07 07:49 | External Medical Summary | Summary of Care ---
Author Name Unknown Organization [place] [address] Care Team Providers Care Merchandise Buyer Name Role Phone Yariel Cardoza MD Primary Care Provide r Reason for Visit * Reason Onset Date Comments COVID-19 Screening 09/30/2021 Encounter Details Date Type Department Care Team Description 09/30/2021 Telephone COVID19 Screening [facility] DEPT CLOSED 07/18/21 [address] [place] [address] [id number], Automated Provider COVID-19 Screening Allergies Active Allergy Reactions Severity Noted Date Comments Adhesive Tape 06/29/2003 Sensitive to Naproxen Hives 05/28/2015 Ivp Dye Hives 08/20/2000 Latex Other (Please comment) 01/05/2015 Contact rash Ibuprofen Rash 01/05/2015 documented as of this encounter (statuses as of 10/01/2021) Medications Medication Sig Dispensed Refills Start Date [...] pain 120 Cap 5 12/22/2020 Active Nystatin 490536 UNIT/GM External Powder (Nystop)Indications: Candidal skin infection [...] as of this encounter (statuses as of 10/01/2021) Active Problems Problem Noted Date History of [...] as of this encounter (statuses as of 10/01/2021) Resolved Problems Problem Noted Date Resolved Date [...] as of this encounter (statuses as of 10/01/2021) Immunizations Name Administration Dates Next Due COVID-19 mRNA, LNP-s, No Pre serve, 2-Dose Series (Flinja) 09/13/2021,12/16/2020,11/25/2020 Pneumococcal Conjugate Vacc, 13 Valent (Prevnar) [...] encounter Miscellaneous Notes * Telephone Encounter - Shahriar Lobo Olivares - 10/01/2021 1:23 AM EST Outreach Attempts Sep 30 2021 9:05AM - Fail to reach patient IVR Message: Unsuccessful contact, no education provided documented in this encounter Plan of Treatment Upcoming Encounters Date Type Specialty Care Team Description 10/16/2021 Office Visit Family Medicine Yariel Cardoza MD [address] [place] [address] [place] [phone] Scheduled Procedures Name Priority [...] Documents on File Type Date Recorded Patient 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
--- OUTSIDE RECORDS SUMMARY | 2023-06-07 07:49 | External Medical Summary | Summary of Care ---
Author Name Unknown Organization [place] [address] Care Team Providers Care Options Advisor Name Role Phone Yariel Cardoza MD Primary Care Provide r Reason for Visit * Reason Onset Date Comments COVID-19 Screening 09/29/2021 Encounter Details Date Type Department Care Team Description 09/29/2021 Telephone COVID19 Screening [facility] DEPT CLOSED 07/18/21 [address] [place] [address] [id number], Automated Provider COVID-19 Screening Allergies Active Allergy Reactions Severity Noted Date Comments Adhesive Tape 06/29/2003 Sensitive to Naproxen Hives 05/28/2015 Ivp Dye Hives 08/20/2000 Latex Other (Please comment) 01/05/2015 Contact rash Ibuprofen Rash 01/05/2015 documented as of this encounter (statuses as of 09/30/2021) Medications Medication Sig Dispensed Refills Start Date [...] pain 120 Cap 5 12/22/2020 Active Nystatin 854112 UNIT/GM External Powder (Nystop)Indications: Candidal skin infection [...] as of this encounter (statuses as of 09/30/2021) Active Problems Problem Noted Date History of [...] as of this encounter (statuses as of 09/30/2021) Resolved Problems Problem Noted Date Resolved Date [...] as of this encounter (statuses as of 09/30/2021) Immunizations Name Administration Dates Next Due COVID-19 mRNA, LNP-s, No Pre serve, 2-Dose Series (JFrog) 09/13/2021,12/16/2020,11/25/2020 Pneumococcal Conjugate Vacc, 13 Valent (Prevnar) [...] Telephone Encounter - Shahriar Lobo Olivares - 09/30/2021 6:45 AM EST Outreach Attempts Sep 29 2021 9:03AM - Fail to reach patient IVR Message: Unsuccessful contact, no education provided documented in this encounter Plan of Treatment Upcoming Encounters Date Type Specialty Care Team Description 10/16/2021 Office Visit Family Medicine Yariel Cardoza MD [address] [place] [address] [place] [address] Scheduled Procedures Name Priority [...] Documents on File Type Date Recorded Patient Makeup Artist Expl 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 Directive Advanced Directive Advanced Directive Care Teams Options Advisor Relationship Specialty Start Date End Date Yariel Cardoza MD [address] [place] [address] [place] [phone] PCP - General Family Medicine 12/01/18 documented as of this encounter
--- OUTSIDE RECORDS SUMMARY | 2023-06-07 07:49 | External Medical Summary | Summary of Care ---
Author Name Unknown Organization [place] [address] Care Team Providers Care Enginehouse Brakeman Name Role Phone Yariel Cardoza MD Primary Care Provide r Reason for Visit * Reason Comments [facility]: Acute nausea Encounter Details Date Type Department Care Team Description 09/13/2021 Home Visit [facility], [facility] [address] [facility] [place] [address] Deborah Matias, RN 132 [facility] [place] [address] Allergies Active Allergy Reactions Severity Noted Date [...] pain 120 Cap 5 12/22/2020 Active Nystatin 591195 UNIT/GM External Powder (Nystop)Indications :Candidal skin infection [...] mRNA, LNP-s, No Pre serve, 2-Dose Series ([employer]) 09/13/2021,12/16/2020,11/25/2020 Pneumococcal Conjugate Vacc, 13 Valent (Prevnar) [...] Sign Reading Time Taken Comments Blood Pressure 124/86 09/13/2021 2:38 PM EST Pulse 91 09/13/2021 2:38 PM EST Temperature 37.1 C (98.7 F) 09/13/2021 2:38 PM ES T Respiratory Rate 20 09/13/2021 2:38 PM EST Oxygen Saturation 97% 09/13/2021 2:38 PM EST Inhaled Oxygen Concentration - - Weight - - Height - - Body Mass Index - - documented in this encounter Progress Notes * Deborah Matias RN - 09/13/2021 2:30 PM EST [facility] Recruitment SpecialistShearing Shed Worker Visit Date: 09/13/2021 Time: 2:30 PM Name: Jayla Hayes : 1945 Situation: Nausea without vomiting after argument with grandson Background: Hx IBS Reports often has these s/s when becomes upset Has taken zofran with relief in past does not have anything for nausea to take prn Ate crackers this morning and had relief of nausea but continues to have distention ''they were going to give me some Zofran to take home last time in the hospital but they never did'' reports has not had gi upset since colonoscopy in August Assessment: Nausea, abdominal distention, hyperactive bs No constipation or diarrhea, denies fever, chills visibly upset with sad/anxious mood/affect Breathing at baseline vss Above assessment TT to Dr. Clark Problems/Symptoms: Review of Systems Constitutional: Negative. Respiratory: Negative. Cardiovascular: Negative. Gastrointestinal: Positive for abdominal distention and nausea. Negative for abdominal pain, anal bleeding, blood in stool, constipation and vomiting. Genitourinary: Negative. Psychiatric/Behavioral: The patient is nervous/anxious. Physical Exam: BP 124/86 | Pulse 91 | Temp 37.1 C (98.7 F) | Resp 20 | SpO2 97% Pain 0 Physical Exam Cardiovascular: Rate and Rhythm: Normal rate and regular rhythm. Pulmonary: Effort: Pulmonary effort is normal. Breath sounds: Normal breath sounds. Abdominal: General: There is distension. Tenderness: There is no abdominal tenderness. There is no guarding or rebound. Treatment/Plan: zofran Rx sent to [facility] Interventions Provided: Consulted PCP/Specialist Reinforced current Plan of Care, including self-management and medication regimen Patient's 'Red Flags': 1. Nausea not controlled by zofran 2. Fall with injury 3. sob Patient Needs to Remember: Call [facility] with red flags Referrals Needed: none Follow Up: Patient encouraged to call the intake phone number for all urgent but not emergent issues. Scheduled to follow up with patient daily with calls x 2 days. Deborah Matias RN 09/13/2021 2:30 PM documented in this encounter Plan of Treatment Upcoming Encounters Date Type Specialty Care Team Description 09/20/2021 Home Visit [facility] Corrina Layne, RN [facility] [place] [address] 10/04/2021 Office Visit Dermatology Marie Conrad MD [address] [place] [address] 10/16/2021 Office Visit Family Medicine Yariel Cardoza MD [address] [place] [address] [place] [phone] Scheduled Procedures Name Priority Associated Diagnoses Date/Ti [...] Documents on File Type Date Recorded Patient Stock Turner Expl 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 Directive Advanced Directive Advanced Directive Care Teams Enginehouse Brakeman Relationship Specialty Start Date End Date Yariel Cardoza MD [address] [place] [address] [place] [id number] PCP - General Family Medicine 12/01/18 documented as of this encounter"
--- OUTSIDE RECORDS SUMMARY | 2023-06-07 07:49 | External Medical Summary | Summary of Care ---
Author Name Unknown Organization [place] [address] Care Team Providers Care Testing Tech Name Role Phone Yariel Cardoza MD Primary Care Provide r Reason for Visit * Reason Comments Acute Encounter Details Date Type Department Care Team Description 09/27/2021 Office Visit Family Medicine [address] [place] [address] Josie Ryan PA-C [address] [place] [address] [place] [phone] Viral illness* Allergies Active Allergy Reactions Severity [...] pain 120 Cap 5 12/22/2020 Active Nystatin 200928 UNIT/GM External Powder (Nystop)Indications: Candidal skin infection [...] mRNA, LNP-s, No Pre serve, 2-Dose Series ([employer]ulate) 09/13/2021,12/16/2020,11/25/2020 Pneumococcal Conjugate Vacc, 13 Valent (Prevnar) [...] for abdominal pain 120 Cap 5 Nystatin 590427 UNIT/GM External Powder (Nystop) APPLY TOPICALLY TO [...] syndrome 07/20/2015 COPD (chronic obstructive pulmonary disease) ([facility]) COPD, severe ([facility]) 12/21/2015 COPD, severity to be determined ([facility]) 07/20/2015 Dyslipidemia, goal LDL below 100 10/16/2015 Dyslipidemia, goal LDL below 130 08/22/2015 FAM HX-CARDIOVAS DIS NEC 01/28/2002 Generalized osteoarthritis 08/22/2015 GERD (gastroesophageal reflux disease) 07/20/2015 Hypertrophy of breast 08/31/2003 IBS (irritable bowel syndrome) 07/20/2015 Kidney disease, chronic, stage III (GFR 30-59 ml/min) ([facility]) 10/16/2015 Kidney stone Lumbar degenerative disc disease 02/06/2016 Lumbar facet arthropathy ([facility]) 02/06/2016 Lumbar spinal stenosis 02/18/2017 Mixed incontinence urge and stress (male)(female) 07/20/2015 Multiple thyroid nodules 09/09/2016 Obesity, Class II, BMI 35.0-39.9, with comorbidity (see actual BMI) 01/19/2016 Primary osteoarthritis of right knee 02/18/2017 Pulmonary hypertension ([facility]) 05/07/2017 Reflux esophagitis 01/28/2002 Slow [...] Visit Family Medicine Yariel Cardoza MD [address] [place] [address] [place] [phone] Scheduled Procedures Name Priority Associated Diagnoses Date/Ti [...] 09/27/2021 11:5 2 AM EST Viral illness INFLUENZA A/B RSV SARS-COV2,PCR Routine 09/27/2021 11:36 AM EST Viral illness documented in this encounter Results * XR CHEST 2 VIEWS (09/27/2021 11:52 AM EST) Anatomical Region Laterality Modality Chest Computed Radiogr aphy Specimen Impressions [facility] - 09/27/2021 5:29 PM EST IMPRESSION No acute cardiopulmonary disease. Narrative [facility] - 09/27/2021 5:29 PM EST [...] degenerative change in the spine. Procedure Note Cloleen Paul MD - 09/27/2021 EXAM XR CHEST [...] spine. IMPRESSION IMPRESSION No acute cardiopulmonary disease. [facility] * INFLUENZA A/B RSV SARS-COV2,PCR (09/27/2021 11:36 AM EST) SARS-CoV-2 (COVID-19) Result Negative Comment: This express test was developed and its performance characteristics determined by [employer] [facility]. It has not been cleared or approved by the U.S. Food and Drug Administration (FDA). FDA does not require this test to go thru premarket FDA review. This test is used for clinical purposes. It should not be regarded as investigational or for research. This laboratory is certified under the Clinical Laboratory Improvement Amendments (CLIA) as qualified to perform high complexity clinical laboratory testing. This test is a nucleic acid amplification test (NAAT), a reverse transcriptase polymerase chain reaction (RT-PCR) test, or a Centers for Disease Control-acceptable equivalent. The test is performed in a high complexity Clinical Laboratory Improvement Amendments-(CLIA) certified laboratory. The test is acceptable for SARS-CoV-2 diagnosis, surveillance, and travel within the [place] and to most countries. Please check with local testing authorities about requirements before travel. No SARS-CoV2 Coronavirus RNA detected by PCR (amplified probe). Negative [facility] Influenza A PCR Result NegativeComment:No Influenza A RNA detected by PCR (amplified probe) Negative [facility] Influenza B PCR Result NegativeComment:No Influenza B RNA detected by PCR (amplified probe) Negative [facility] RSV PCR Result NegativeComment:No Respiratory Syncytial Virus RNA detected by PCR (amplified probe) Negative [facility] Specimen Upper Respiratory - Nasophar yngeal swab (specimen) Performing Organization Address City/State/[facility] [[email or web address]] Co de Phone Number [facility] [address] [place] [address] documented in this encounter Visit Diagnoses Diagnosis Viral illness- Primary Unspecified viral infection, in conditions classified elsewhere and of unspecified site documented in this encounter Advance Directives Documents on File Type Date Recorded Patient Software Test Technician Expl 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 Directive Advanced Directive Advanced Directive Care Teams Testing Tech Relationship Specialty Start Date End Date Yariel Cardoza MD [address] [place] [address] [place] [address] PCP - General Family Medicine 12/01/18 documented as of this encounter
--- OUTSIDE RECORDS SUMMARY | 2023-06-07 07:50 | External Medical Summary | Summary of Care ---
Author Name Unknown Organization [place] [address] Care Team Providers Care Senior Web Analyst Name Role Phone Yariel Cardoza MD Primary Care Provide r Reason for Visit * Reason Onset Date Comments FYI 09/05/2021 Encounter Details Date Type Department Care Team Description 09/05/2021 Telephone Care Coordination [address] [place] [address] Joan Romero [facility] [address] [place] [address] FYI Allergies Active Allergy Reactions Severity Noted Date Comments Adhesive Tape 06/29/2003 Sensitive to Naproxen Hives 05/28/2015 Ivp Dye Hives 08/20/2000 Latex Other (Please comment) 01/05/2015 Contact rash Ibuprofen Rash 01/05/2015 documented as of this encounter (statuses as of 09/05/2021) Medications Medication Sig Dispensed Refills Start Date [...] abdominal pain 120 Cap 5 12/22/2020 Active Atorvastatin Calcium 40 MG Oral Tablet (Lipitor) Take 1 Tab by mouth daily. 90 Tab 1 01/09/2021 Active Clopidogrel Bisulfate 75 MG Oral Tablet (pLAVix)Indications :Stenosis of right vertebral artery,TIA (transient ischemic attack) TAKE 1 TABLET BY MOUTH EVERY DAY 90 Tab 1 03/17/2021 Active Nystatin 118150 UNIT/GM External Powder (Nystop)Indications :Candidal skin infection [...] EVERY DAY 180 Capsule 1 08/28/2021 Active documented as of this encounter (statuses as of 09/05/2021) Active Problems Problem Noted Date History of [...] as of this encounter (statuses as of 09/05/2021) Resolved Problems Problem Noted Date Resolved Date [...] as of this encounter (statuses as of 09/05/2021) Immunizations Name Administration Dates Next Due COVID-19 mRNA, LNP-s, No Pre serve, 2-Dose Series ([employer]) 12/16/2020,11/25/2020 Pneumococcal Conjugate Vacc, 13 Valent (Prevnar) [...] encounter Miscellaneous Notes * Telephone Encounter - Joan Romero Community Health Leasing Director - 09/05/2021 1:17 PM EST Call to patient to confirm appt today. States she would prefer [facility] to visit on . Patient requesting COVID-19 booster shot. Message routed to [facility] scheduling pool. Colonoscopy 08/28/21 at [facility] with . Patient states it was discovered that she has a hernia. Patient asking if PCP is aware of this. Reviewed records from [facility] with patient. Will this encounter to PCP. documented in this encounter Plan of Treatment Upcoming Encounters Date Type Specialty Care Team Description 09/05/2021 Home Visit Family Medicine Joan Romero Community Health Assistant [address] [place] [address] [place] [id number] 09/20/2021 [facility] Corrina Layne RN 132 [facility] [place] [address] 10/04/2021 [facility] [address] 10/16/2021 Office Visit Family Medicine Yariel Cardoza MD [address] [place] [address] [place] [phone] Scheduled Procedures Name Priority Associated Diagnoses Date/Ti [...] Documents on File Type Date Recorded 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
--- OUTSIDE RECORDS SUMMARY | 2023-06-07 07:50 | External Medical Summary | Summary of Care ---
Author Name Unknown Organization [place] [address] Care Team Providers Care Cork Cutter Name Role Phone Leanne Cardoza MD Primary Care Provide r Reason for Visit * Reason Comments eRx-Medication Refill Encounter Details Date Type Department Care Team Description 09/08/2021 Refill Family [address] [place] [address] Leanne Cardoza MD [address] [place] [address] [place] [phone] Allergies Active Allergy Reactions Severity Noted Date Comments Adhesive Tape 06/29/2003 Sensitive to Naproxen Hives 05/28/2015 Ivp Dye Hives 08/20/2000 Latex Other (Please comment) 01/05/2015 Contact rash Ibuprofen Rash 01/05/2015 documented as of this encounter (statuses as of 09/08/2021) Medications Medication Sig Dispensed Refills Start Date End Date Status oxygen GASIndications:Hy poxia Use 2 L/min(Oxygen) as directed continuous. 1 Each 0 02/18/2017 Active budesonide (PULMICORT) 0.5 MG/2ML nebulizer solution INHALE ONE UNIT DOSE VIAL VIA NEBULIZER TWO TIMES A DAY. 3 08/03/2017 Active VENTOLIN HFA 108 (90 Base) MCG/ACT inhaler INHALE 2 PUFFS BY MOUTH EVERY 4 HOURS NEEDED FOR WHEEZING. 1 Inhaler 5 02/10/2018 Active umeclidinium-radha nterol (ANORO ELLIPTA) 62.5-25 MCG/INH AEPB Inhale 1 Puff by mouth daily. 0 Active Dextromethorphan- guaiFENesin (CORICIDIN HBP CONGESTION/COUGH) 10-200 MG CAPS Take by mouth. Every 4-6 hours as needed for cough 0 Active Cholecalciferol 1000 units Capsule Take 2,000 Units by mouth daily. 0 Active albuterol-ipratro pium (DUONEB) 2.5-0.5 MG/3ML nebulizer solutionIndicatio ns:COPD, severe (HCC) INHALE 3 MLS VIA NEBULIZER EVERY 4 HOURS NEEDED FOR COUGH, SHORTNESS OF BREATH OR WHEEZING. 360 mL 1 04/11/2020 Active Dicyclomine HCl 10 MG Oral CapsuleIndication s:Irritable bowel syndrome with both constipation and diarrhea Take 1 Cap by mouth 4 times a day as needed (abdominal pain, cramping). for abdominal pain 120 Cap 5 12/22/2020 Active Nystatin 705121 UNIT/GM External Powder (Nystop)Indicatio ns:Candidal skin infection APPLY TOPICALLY TO AFFECTED AREA 3 TIMES A DAY. 45 g 1 03/17/2021 Active hydroCHLOROthiazi de 25 MG Oral Tablet (Hydrodiuril) TAKE 1 TABLET BY MOUTH EVERY DAY 90 Tab 3 04/15/2021 Active Potassium Chloride ER 10 MEQ Oral Tablet Extended Release TAKE 1 TABLET BY MOUTH EVERY DAY 90 Tab 2 06/05/2021 Active Meclizine HCl 25 MG Oral Tablet (Antivert) TAKE 1 TABLET BY MOUTH ONCE EVERY 6 HOURS NEEDED FOR DIZZINESS/VERTI GO 10 Tab 0 06/06/2021 Active Atenolol 25 MG Oral Tablet (Tenormin)Indicat ions:HTN, goal below 140/90 Take 1 Tab by mouth daily. 90 Tab 3 06/20/2021 Active Losartan Potassium 50 MG Oral Tablet (Cozaar)Indicatio ns:HTN, goal below 140/90 Take 1 Tab by mouth daily. 30 Tab 5 06/20/2021 Active Bisacodyl 5 MG Oral Tablet Delayed Release (Dulcolax) Take 10 mg by mouth at bedtime. 0 Active Naphazoline-Pheni ramine 0.025-0.3 % Ophthalmic Solution (Naphcon-A)Indica tions:1-2 drops each eye as needed for eye [...] 07/07/2021 Active predniSONE 50 MG Oral Tablet (Deltasone)Indica tions:Allergic reaction to contrast material, subsequent encounter Take 1 tab 13 hrs before scan, take 1 tab 7 hrs before scan, take 1 tab 1 hr before scan with Benadryl 3 Tab 0 07/26/2021 Active Omeprazole 20 MG Oral Capsule Delayed Release (PriLOSEC)Indicat ions:Gastroesopha geal reflux disease without esophagitis TAKE 2 CAPSULES BY MOUTH EVERY DAY 180 Capsule 1 08/28/2021 Active Clopidogrel Bisulfate 75 MG Oral Tablet (pLAVix)Indicatio ns:Stenosis of right vertebral artery,TIA (transient ischemic attack) TAKE 1 TABLET BY MOUTH EVERY DAY 90 Tablet 2 09/07/2021 Active Atorvastatin Calcium 40 MG Oral Tablet (Lipitor) TAKE 1 TABLET BY MOUTH EVERY DAY 90 Tablet 1 09/08/2021 Active Atorvastatin Calcium 40 MG Oral Tablet (Lipitor) Take 1 Tab by mouth daily. 90 Tab 1 01/09/2021 09/08/20 21 Discontinued documented as of this encounter (statuses as of 09/08/2021) Active Problems Problem Noted Date History of [...] as of this encounter (statuses as of 09/08/2021) Resolved Problems Problem Noted Date Resolved Date [...] as of this encounter (statuses as of 09/08/2021) Immunizations Name Administration Dates Next Due COVID-19 [...] Miscellaneous Notes * Telephone Encounter - Vick James, [facility] - 09/08/2021 12:54 PM EST Signed Prescriptions: Disp Refills Atorvastatin Calcium 40 MG Oral Tablet (Li*90 Tab*1 Sig: TAKE 1TABLET BY MOUTH EVERY DAYAuthorizing Provider: LEANNE CARDOZAing User: VICK JAMES documented in this encounter Plan of Treatment Upcoming Encounters Date Type Specialty Care Team Description 09/20/2021 [facility] Visit [facility] Corrina Layne, RN 132 [facility] [place] [address] 10/04/2021 Office Visit Dermatology Marie Conrad MD [address] [place] [address], [place] [address] 10/16/2021 Office Visit Family Medicine Leanne Cardoza MD [address] [place] [address] [place] [address] Scheduled Procedures Name Priority [...] Documents on File Type Date Recorded 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
--- OUTSIDE RECORDS SUMMARY | 2023-06-07 07:50 | External Medical Summary | Summary of Care ---
Author Name Unknown Organization [place] [address] Care Team Providers Care Square Dance Caller Name Role Phone Leanne Cardoza MD Primary Care Provide r Reason for Visit * Reason Comments eRx-Medication Refill Encounter Details Date Type Department Care Team Description 09/07/2021 Refill Family Medicine [address] [place] [address] Jade Castillo MD [address] [place] [address] [place] [phone] Stenosis of right vertebral artery; TIA (transient ischemic attack) Allergies Active Allergy Reactions Severity Noted Date Comments Adhesive Tape 06/29/2003 Sensitive to Naproxen Hives 05/28/2015 Ivp Dye Hives 08/20/2000 Latex Other (Please comment) 01/05/2015 Contact rash Ibuprofen Rash 01/05/2015 documented as of this encounter (statuses as of 09/07/2021) Medications Medication Sig Dispensed Refills Start Date [...] mouth daily. 90 Tab 1 01/09/2021 Active Nystatin 674078 UNIT/GM External Powder (Nystop)Indicatio ns:Candidal skin infection [...] EVERY DAY 90 Tablet 2 09/07/2021 Active Clopidogrel Bisulfate 75 MG Oral Tablet (pLAVix)Indicatio ns:Stenosis of right vertebral artery,TIA (transient ischemic attack) TAKE 1 TABLET BY MOUTH EVERY DAY 90 Tab 1 03/17/2021 09/07/20 21 Discontinued documented as of this encounter (statuses as of 09/07/2021) Active Problems Problem Noted Date History of [...] as of this encounter (statuses as of 09/07/2021) Resolved Problems Problem Noted Date Resolved Date [...] as of this encounter (statuses as of 09/07/2021) Immunizations Name Administration Dates Next Due COVID-19 [...] Miscellaneous Notes * Telephone Encounter - Kassidy Archuleta, [facility] - 09/07/2021 2:00 PM EST Signed Prescriptions: Disp Refills Clopidogrel Bisulfate 75 MG Oral Tablet (p*90 Tab*2 Sig: TAKE 1 TABLET BY MOUTH EVERY DAYAuthorizing Provider: LEANNE CARDOZAOrderronald User: KASSIDY ARCHULETA documented in this encounter Plan of Treatment Upcoming Encounters Date Type Specialty Care Team Description 09/20/2021 Home Visit [facility] Corrina Layne, SELENE [address] [place] [address] 10/04/2021 Office Visit Dermatology Marie Conrad MD [address] [place] [phone] 10/16/2021 Office Visit Family Medicine Leanne Cardoza MD [address] [place] [address] [place] [address] Scheduled Procedures Name Priority Associated Diagnoses [...] Documents on File Type Date Recorded Patient Core Maker Helper Expl 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 Directive Advanced Directive Advanced Directive Care Teams Square Dance Caller Relationship Specialty Start Date End Date Leanne Cardoza MD [address] [place] [address] [place] [id number] PCP - General Family Medicine 12/01/18 documented as of this encounter
--- OUTSIDE RECORDS SUMMARY | 2023-06-07 07:50 | External Medical Summary | Summary of Care ---
Author Name Unknown Organization [place] [address] Care Team Providers Care Welding Machine Operator Gas Metal Arc Name Role Phone Leanne Cardoza MD Primary Care Provide r Reason for Visit * Reason Comments eRx-Medication Refill Encounter Details Date Type Department Care Team Description 08/28/2021 Refill Family Medicine [address] [place] [address] Jade Castillo MD [address] [place] [address] [place] [id number] Encounter for long-term (current) use of other medications*; Gastroesophageal reflux disease without esophagitis Allergies Active Allergy Reactions Severity Noted Date Comments Adhesive Tape 06/29/2003 Sensitive to Naproxen Hives 05/28/2015 Ivp Dye Hives 08/20/2000 Latex Other (Please comment) 01/05/2015 Contact rash Ibuprofen Rash 01/05/2015 documented as of this encounter (statuses as of 08/28/2021) Medications Medication Sig Dispensed Refills Start Date [...] DAY 90 Tab 1 03/17/2021 Active Nystatin 077941 UNIT/GM External Powder (Nystop)Indicatio ns:Candidal skin infection [...] EVERY DAY 180 Capsule 1 08/28/2021 Active Omeprazole 20 MG Oral Capsule Delayed Release (PriLOSEC)Indicat ions:Gastroesopha geal reflux disease without esophagitis TAKE 2 CAPSULES BY MOUTH EVERY DAY 180 Cap 1 03/08/2021 08/28/20 21 Discontinued documented as of this encounter (statuses as of 08/28/2021) Active Problems Problem Noted Date History of [...] as of this encounter (statuses as of 08/28/2021) Resolved Problems Problem Noted Date Resolved Date [...] as of this encounter (statuses as of 08/28/2021) Immunizations Name Administration Dates Next Due COVID-19 [...] Notes * Telephone Encounter - Jame Tavarez [facility] - 08/28/2021 10:27 AM EST Signed Prescriptions: Disp Refills Omeprazole 20 MG Oral Capsule Delayed Rele*180 Ca*1 Sig: TAKE 2 CAPSULES BY MOUTH EVERY DAYAuthorizing Provider: LEANNE CARDOZA User: JAME TAVAREZ * Telephone Encounter - Jame Tavarez [facility] - 08/28/2021 10:25 AM EST Pending Prescriptions: Disp Refills Omeprazole 20 MG Oral Capsule Delayed Rel*180 Ca*1 Sig: TAKE 2 CAPSULES BY MOUTH EVERY DAY Last Office/Telemedicine Visit: 07/26/2021 Next Office Visit: 10/16/2021 Scheduled Provider(s): Leanne Cardoza MD If no future appointments scheduled, and last appointment is greater than a year ago, please schedule patient for a follow-up appointment Last date the medication was ordered: Pharmacy: [id number] [id number] [facility] Is this request for a controlled substance?No Urine Drug Screen:No results found for this or any previous visit. Patient Phone Numbers Labs: Lab Results Component Value Date/Time CREAT 0.8 06/06/2021 10:10 AM CREAT 0.87 09/22/2020 12:00 AM CREAT 0.9 05/06/2020 10:15 AM POTASSIUM 4.3 06/06/2021 10:10 AM POTASSIUM 5.2 (A) 09/22/2020 12:00 AM POTASSIUM 4.1 05/06/2020 10:15 AM TSH 1.31 12/26/2020 08:53 AM TSH 0.69 04/17/2017 10:53 AM LDLCALC 72 12/26/2020 08:53 AM LDLCALC 35 09/20/2020 12:00 AM LDLCALC 51 07/28/2018 02:30 PM LDLDIRECT 70 08/18/2019 11:10 AM ALT 22 05/06/2020 10:15 AM HGBA1C 6.0 (H) 12/26/2020 08:53 AM HGBA1C 5.7 03/19/2017 08:05 AM documented in this encounter Plan of Treatment Upcoming Encounters Date Type Specialty Care Team Description 09/05/2021 Home Visit Family Medicine Joan Romero [facility] Health Supervisor Audit Clerks [address] [place] [address] [place] [address] 09/20/2021 [facility] Visit [facility] Corrina Layne RN 132 [facility] [place] [address] 10/04/2021 Office Visit Dermatology Marie Conrad MD [address] [place] [address] 10/16/2021 Office Visit Family Medicine Leanne Cardoza MD [address] [place] [address] [place] [id number] Scheduled Orders Name Type Priority Associated Diagnoses Orde r Schedule MAGNESIUM Lab Routine Encounter for long-term (current) use of other medications Expected: 08/28/2021 (Approximate), Expires: 08/28/2022 Scheduled Procedures Name Priority Associated Diagnoses Date/Ti [...] history exists COLONOSCOPY-EVERY 3 YRS AGES 18-100 06/30/2024 06/30/2021, 06/15/2021, 03/26/2018, Additional history exists DTaP,Tdap,and Td Vaccines (2 [...] this encounter Visit Diagnoses Diagnosis Encounter for long-term (current) use of other medications- Primary Gastroesophageal reflux disease without esophagitis Esophageal reflux documented in this encounter Advance Directives Documents on File Type Date Recorded 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
--- OUTSIDE RECORDS SUMMARY | 2023-06-07 07:50 | External Medical Summary | Summary of Care ---
Author Name Unknown Organization [place] [address] Care Team Providers Care Authors Motivational Name Role Phone Yariel Cardoza MD Primary Care Provide r Encounter Details Date Type Department Care Team Description 09/13/2021 Orders Only [facility] [address] [facility] [place] [id number] Landon [place] DO [address] [facility] [address] Allergies Active Allergy Reactions Severity Noted Date Comments Adhesive Tape 06/29/2003 Sensitive to Naproxen Hives 05/28/2015 Ivp Dye Hives 08/20/2000 Latex Other (Please comment) 01/05/2015 Contact rash Ibuprofen Rash 01/05/2015 documented as of this encounter (statuses as of 09/13/2021) Medications Medication Sig Dispensed Refills Start Date [...] pain 120 Cap 5 12/22/2020 Active Nystatin 889698 UNIT/GM External Powder (Nystop)Indications: Candidal skin infection [...] as of this encounter (statuses as of 09/13/2021) Active Problems Problem Noted Date History of [...] as of this encounter (statuses as of 09/13/2021) Resolved Problems Problem Noted Date Resolved Date [...] as of this encounter (statuses as of 09/13/2021) Immunizations Name Administration Dates Next Due COVID-19 [...] Encounters Date Type Specialty Care Team Description 09/14/2021 Scheduled Telephone [facility] [address] [place] [address] 09/20/2021 Home Visit [facility] Corrina Layne RN [address] [place] [address] 10/04/2021 [facility] [address] 10/16/2021 Office Visit Family Medicine Yariel Cardoza MD [address] [place] [address] [place] [address] Scheduled Procedures Name Priority Associated Diagnoses Date/Ti [...] Documents on File Type Date Recorded 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
--- OUTSIDE RECORDS SUMMARY | 2023-06-07 07:50 | External Medical Summary | Summary of Care ---
Author Name Unknown Organization [place] [address] Care Team Providers Care Audience Coordinator Name Role Phone Yariel Cardoza MD Primary Care Provide r Reason for Visit * Reason Comments [facility]: Maintenance Encounter Details Date Type Department Care Team Description 09/07/2021 Home Visit Care Coordination [address] [place] [address] Joan Romero [facility] Health Disaster Recovery Consultant [address] [place] [address] [place] [address] Mixed incontinence urge and stress (male)(female)*; Urinary, incontinence, stress female; Vertebral artery stenosis, asymptomatic, right; HTN, goal below 140/90; COPD, severe (HCC) Allergies Active Allergy Reactions [...] daily. 90 Tab 1 01/09/2021 Active Nystatin 460275 UNIT/GM External Powder (Nystop)Indicatio ns:Candidal skin infection [...] Sign Reading Time Taken Comments Blood Pressure 134/80 09/07/2021 12:00 PM EST Pulse 74 09/07/2021 12:00 PM EST Temperature 36.6 C (97.9 F) 09/07/2021 12:[address] Respiratory Rate 16 09/07/2021 12:00 PM EST Oxygen Saturation 92% 09/07/2021 12:00 PM EST Inhaled Oxygen Concentration - - Weight - - Height - - Body Mass Index - - documented in this encounter Progress Notes * Joan Romero, [facility] Health Disaster Recovery Consultant - 09/07/2021 11:56 AM EST Community Health Disaster Recovery Consultant Visit Date: 09/07/2021 Time: 11:56 AM Name: Jayla Hayes : 1945 Referral Source: manager city Source of Information: Patient Spoken language: georgian Patient can read in Malaysian: Yes. Machine Turner needed: No. COVID-19 screening completed: Yes WANTS COVID BOOSTER MATT. PLEASE CHECK WITH SCHEDULING. CALL [facility] - need verification of hernia? Vitals: Vital signs completed: Yes, vital signs within normal range. BP 134/80 | Pulse 74 | Temp 36.6 C (97.9 F) | Resp 16 | SpO2 92% Condition Changes: Changes in health or social status since last visit: Denies SOB, N/V/D, occasional headaches. Reports coughing up a good deal of phlegm in the AM. Is questioning if it is related to allergies. Denies dizzy/light headed Continues on mirilax BID. States stools are starting to become formed. Reports that she moves her bowels 3-4 times per day. Reports she is passing gas. Reports that abdomen has become more hard and distended recently. Is unsure of why this is happening. Reports a hernia was discovered during colonscopy at [facility]. Is asking [employer] to look into this more - relaying that this is an example of communication issues. Reports that the "tech" who gave her the [place] papers, said "we will need to talk about surgery for the hernia" States that abdominal pain has resolved following the second colonoscopy. The patient has new concerns since last visit: Yes, reports that she applied for compensated care through [employer]. Reports that they have been getting comp care from [facility], and they are thinking of switching care to the group completely, because they get better help. States, "I have a lot of communication issues with [employer]". Reports that no one calls with results. They will get a letter in the mail on occasion. She doesn't want to switch to [facility], because [place] is closer, but she feels they would be better cared for at [facility]. Offered to help patient reapply for comp care. Patient states "I don't want to bother anymore". Advised patient that application process can take a few months. Patient staes she is aware of this, andis displeased because there was no communication on where they stood in the process. Reports that she has received automated phone calls, and gave date/information and was told "incorrect information". Has showed up for appointments only to find she came on the wrong day. Educated patient on purpose of [facility]. Instructed to call [facility] intake with any questions or concerns, at any time. Patient verbalized understanding. Goals of care: 1. to stay out of the hospital 2. to spend time with family 3.get GI sxs under better control-IBS Progress towards goals since last visit: Maintained, per patient. Medications: Medication review completed? No, - not reviewed, however patient reports that she has stopped taking dulcolax d/t loose stools. Does the patient have barriers to medication adherence? No. Patient reports difficulty paying for medications or might in the future: No. Telehealth: This is a telehealth visit: No. Symptoms Surveys and Evaluations: MAHC10 completed this visit: Yes. Score is greater than 4? Yes, notified Provider/Entry Level Paralegal Last flowsheet values for MAHC10: Age 65+: 1 (07/14/2021 10:00 AM) Diagnosis (3 or more co-existing): 1 (07/14/2021 10:00 AM) Prior history of falls within 3 months: 0 (07/14/2021 10:00 AM) Incontinence: 1 (07/14/2021 10:00 AM) Visual impairment: 1 (07/14/2021 10:00 AM) Impaired functional mobility: 0 (07/14/2021 10:00 AM) Environmental hazards: 1 (07/14/2021 10:00 AM) Poly Pharmacy (4 or more prescriptions - any type): 1 (07/14/2021 10:00 AM) Pain affecting level of function: 0 (07/14/2021 10:00 AM) Cognitive impairment: 0 (07/14/2021 10:00 AM) Score - a score of 4 or more is considered at risk for fallin (07/14/2021 10:00 AM) COPD Checklist COPD LYN (Community Health Disaster Recovery Consultant) Checklist The patient uses oxygen: Yes Tanks are stored: near a heat source. Recommended patient to move tanks. Compressor located away from anything flammable: yes Oxygen tubing: - Clean and in good repair: Yes - Reached out to Durable Medical Equipment supplier for replacement tubing: No, n/a - Referred to Entry Level Paralegal for additional in-home respiratory assessment: No, n/a - Other: n Describe how the patient manages going out with oxygen: Takes portable O2 with her when she leaves the house, incase she needs it. - Referred to Entry Level Paralegal for portable oxygen order: No - - Coordinated portable oxygen tanks with Durable Medical Equipment supplier: No - The patient uses a nebulizer: Yes Describe how the patient uses their nebulizer: Demonstrated using the nebulizer and appeared to understand. - yes Describe how the patient cleans the nebulizer (including the filter): Patient demonstrated cleaning and appeared to understand. - yes The patient uses an inhaler: Yes Describe how the patient uses the inhaler: Patient demonstrated using the inhaler and appeared to understand. yes Describe how the patient cleans the inhaler: Patient demonstrated cleaning and appeared to understand. - yes Frequency of inhaler use: Daily and PRN COPD Assessment Test (CAT) completed this visit: Yes Last flowsheet values for COPD Assessment Test (CAT): How often do you cough?: 2 (09/07/2021 12:00 PM) Do you have phlegm (mucus) in your chest at all? : 2 (09/07/2021 12:00 PM) Does your chest feel tight?: 0 (09/07/2021 12:00 PM) How out of breath are you when you walk up a hill or flight of stairs?: 4 (09/07/2021 12:00 PM) How limited are you doing any activities at home?: 2 (09/07/2021 12:00 PM) How confident are you in leaving your home with your lung condition?: 0 (09/07/2021 12:00 PM) How soundly do you sleep?: 1 (09/07/2021 12:00 PM) How much energy do you have?: 4 (09/07/2021 12:00 PM) CAT Total Score: 15 (09/07/2021 12:00 PM) Social Determinants of Health: Safety: Patient reports feeling unsafe in their home: No. Housing: ? Patient reports they are at risk of becoming homeless: No. Home/Living situation: ? Patient lives alone: No, , daughter, and grandsons ? Bathroom is located 1 ? Bedroom is located 1 ? Patient has to go up and down steps: No. Patient receives help from family/friends/neighbors/community agencies etc.: Yes. Type of help the patient receives: family are very supportive and assist as needed Patient perceives the help they receive as adequate: ? Yes. DME: ? DME used: Walker, Cane and Wheelchair - Able to walk, but can not stand for long periods of time. Does not use assistive device in the home, just when out. ? Patient has concerns related to DME: No. Financial: ? Patient reports experiencing a financial hardship: No. Employment: Patient is unemployed or without regular income: No. Utilities: ? Patient reports difficulty paying heating, water, or electric bill: No. Transportation: ? Patient drives: Yes.- only short distances ? Does anyone drive patient to appointments and shopping? Yes. - daughter drives to far away appointments ? Patient receives community or public transportation assistance: No. ? Patient reports trouble getting a ride to medical visits or work: Never True. Clothing: ? Patient reports being unable to get clothing when it was really needed: No. Food insecurity: ? Patient has concerns surrounding meals/food: No. ? Within the past 12 months patient worried food would run out before having money to buy more: Never True. ? Within the past 12 months the food patient bought did not last and did not have money to get more: Never True ? Food is needed for this week: No. Caregiver/Childcare: Patient feels overwhelmed with taking care of a child, family member or friend: No. ? If caregiver is present, patient reports adequate support: Yes. Connections: How often do you feel lonely or isolated from those around you? Never. Plan: Notified Provider/Entry Level Paralegal of Questions/Concerns: communication with staff Three Red Flags 1. increased sob 2 increased cough/wheezing not relived by nebs 3. fever Follow Up: Patient encouraged to call the intake phone number for all urgent but not emergent issues. Scheduled to follow up with patient in PRN. [facility] 09/07/2021 11:56 AM documented in this encounter Plan of Treatment Upcoming Encounters Date Type Specialty Care Team Description 09/20/2021 Home Visit [facility] Corrina Layne RN 132 [facility] [place] [address] 10/04/2021 Office Visit Dermatology Marie Conrad MD 200 [facility] [place], [place] [phone] 10/16/2021 Office Visit Family Medicine Yariel Cardoza MD [address] [place] [address] [place] [id number] Scheduled Procedures Name Priority Associated Diagnoses Date/Ti [...] as of this encounter Visit Diagnoses Diagnosis Mixed incontinence urge and stress (male)(female)- Primary Urinary, incontinence, stress female Female stress incontinence Vertebral artery stenosis, asymptomatic, right HTN, goal below 140/90 Unspecified essential hypertension COPD, severe (HCC) Chronic airway obstruction, not elsewhere classified documented in this encounter Advance Directives Documents on File Type Date Recorded 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
--- OUTSIDE RECORDS SUMMARY | 2023-06-07 07:50 | External Medical Summary | Summary of Care ---
Author Name Unknown Organization [place] [address] Care Team Providers Care Nurse Rn Bsn Name Role Phone Yariel Cardoza MD Primary Care Provide r Reason for Visit * Reason Comments [facility]: Maintenance Encounter Details Date Type Department Care Team Description 09/07/2021 Home Visit Care Coordination [address] [place] [address] Joan [facility] Health Fisheries Technician [address] [place] [address] [place] [address] Mixed incontinence urge and [...] daily. 90 Tab 1 01/09/2021 Active Nystatin 604128 UNIT/GM External Powder (Nystop)Indicatio ns:Candidal skin infection [...] this encounter Progress Notes * Joan Rom[facility] Health Fisheries Technician - 09/07/2021 11:56 AM EST Community Health Fisheries Technician Visit Date: 09/07/2021 Time: 11:56 AM Name: Jayla Hayes : 1945 Referral Source: technical operations manager Source of Information: Patient Spoken language: mohawk Patient can read in South African: Yes. Industrial Chemist needed: No. COVID-19 screening completed: Yes WANTS COVID BOOSTER MATT. PLEASE CHECK WITH SCHEDULING. CALL [facility] - need verification of hernia? Vitals: Vital [...] a hernia was discovered during colonscopy at [facility]. Is asking [employer] to look into this more - relaying that this is an example of communication issues. Reports that the "tech" who gave her the [place] papers, said "we will need to talk about surgery for the hernia" States that abdominal pain has resolved following the second colonoscopy. The patient has new concerns since last visit: Yes, reports that she applied for compensated care through [employer]. Reports that they have been getting comp care from [facility], and they are thinking of switching care to the group completely, because they get better help. States, "I have a lot of communication issues with [employer]". Reports that no one calls with results. They will get a letter in the mail on occasion. She doesn't want to switch to [facility], because [place] is closer, but she feels they would be better cared for at [facility]. Offered to help patient reapply for comp [...] wrong day. Educated patient on purpose of [facility]. Instructed to call [facility] intake with any questions or concerns, at [...] Score is greater than 4? Yes, notified Provider/Maintenance Mechanic Supervisor Last flowsheet values for MAHC10: Age 65+: [...] AM) COPD Checklist COPD LYN (Community Health Fisheries Technician) Checklist The patient uses oxygen: Yes Tanks are stored: near a heat source. Recommended patient to move tanks. Compressor located away from anything flammable: yes Oxygen tubing: - Clean and in good repair: Yes - Reached out to Durable Medical Equipment supplier for replacement tubing: No, n/a - Referred to Maintenance Mechanic Supervisor for additional in-home respiratory assessment: No, n/a - Other: n Describe how the patient manages going out with oxygen: Takes portable O2 with her when she leaves the house, incase she needs it. - Referred to Maintenance Mechanic Supervisor for portable oxygen order: No - - [...] from those around you? Never. 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
--- OUTSIDE RECORDS SUMMARY | 2023-06-07 07:50 | External Medical Summary | Summary of Care ---
Author Name Unknown Organization [place] [address] Care Team Providers Care Thaw Shed Heater Tender Name Role Phone Yariel Cardoza MD Primary Care Provide r Reason for Visit * Reason Onset Date Comments FYI 09/05/2021 Encounter Details Date Type Department Care Team Description 09/05/2021 Telephone Care Coordination [address] [place] [address] Joan Romeor [facility] [address] [place] [address] FYI Allergies Active [...] DAY 90 Tab 1 03/17/2021 Active Nystatin 795306 UNIT/GM External Powder (Nystop)Indications :Candidal skin infection [...] mRNA, LNP-s, No Pre serve, 2-Dose Series (Next Generation Dance) 12/16/2020,11/25/2020 Pneumococcal Conjugate Vacc, 13 Valent (Prevnar) [...] Telephone Encounter - Yariel Cardoza MD - 09/05/2021 1:43 PM EST There is no mention of a hernia on the colonoscopy. Hernias are not generally detected with a colonoscopy. We can discuss this at her next appointment. If her GI is aware and she is not having issues, we can just discuss at her next appt * Telephone Encounter - Kimberlee Tinsley Rejoiner - 09/05/2021 1:17 PM EST Call to patient to confirm appt today. States she would prefer LYN to visit on . Patient requesting COVID-19 booster shot. Message routed to [facility] scheduling [facility]. Colonoscopy 08/28/21 at [facility] with . Patient states it was discovered that she has a hernia. Patient asking if PCP is aware of this. Reviewed records from [facility] with patient. Will this encounter to PCP. documented in this encounter Plan of Treatment Upcoming Encounters Date Type Specialty Care Team Description 09/05/2021 Home Visit Family Medicine Joan Romero [facility] Rejoiner [address] [place] [address] [place] [address] 09/20/2021 Home Visit [facility] Corrina Layne RN [address] [place], [place] [address] [address] 10/04/2021 Office [facility] [address] 10/16/2021 Office Visit Family Medicine Yariel Cardoza MD [address] [place] [address] [place] [address] Scheduled Procedures Name Priority Associated Diagnoses Date/Ti [...] Documents on File Type Date Recorded Patient Gem Setter Expl 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 Directive Advanced Directive Advanced Directive Care Teams Thaw Shed Heater Tender Relationship Specialty Start Date End Date Yariel Cardoza MD [address] [place] [address] [place] [id number] PCP - General Family Medicine 12/01/18 documented as of this encounter
--- OUTSIDE RECORDS SUMMARY | 2023-06-07 07:50 | External Medical Summary | Summary of Care ---
Author Name Unknown Organization [place] [address] Care Team Providers Care Cornice Upholsterer Name Role Phone Yariel Cardoza MD Primary Care Provide r Reason for Visit * Reason Onset Date Comments Appointment 09/05/2021 Encounter Details Date Type Department Care Team Description 09/05/2021 Telephone Care Coordination [address] [place] [address] Joan Romero [facility] Digital Data Analyst [address] [place] [address] [place] [address] Appointment Allergies Active Allergy Reactions Severity Noted Date [...] DAY 90 Tab 1 03/17/2021 Active Nystatin 597795 UNIT/GM External Powder (Nystop)Indications :Candidal skin infection [...] mRNA, LNP-s, No Pre serve, 2-Dose Series (Nogacom) 12/16/2020,11/25/2020 Pneumococcal Conjugate Vacc, 13 Valent (Prevnar) [...] encounter Miscellaneous Notes * Telephone Encounter - Kimberlee Tinsley - 09/05/2021 1:14 PM EST Patient requesting COVID-19 booster. Please schedule for MARIANO RN to administer. documented in this encounter Plan of Treatment Upcoming Encounters Date Type Specialty Care Team Description 09/05/2021 Home Visit Family Medicine Joan Romero Community Health Assistant [address] [place] [address] [place] [address] 09/20/2021 Home Visit [facility] Corrina Layne RN 132 [facility] [place] [address] 10/04/2021 Office Visit [facility] [address] 10/16/2021 Office Visit Family Medicine Yariel Cardoza MD [address] [place] [address] [place] [address] Scheduled Procedures Name Priority [...] Documents on File Type Date Recorded 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
--- OUTSIDE RECORDS SUMMARY | 2023-06-07 07:50 | External Medical Summary | Summary of Care ---
Author Name Unknown Organization [place] [address] Care Team Providers Care Art Historian Name Role Phone Yariel Cardoza MD Primary Care Provide r Encounter Details Date Type Department Care Team Description 08/29/2021 Orders Only Family Medicine [address] [phone] Yariel Cardoza MD [address] [place] [address] [place] [address] Allergies Active Allergy Reactions Severity Noted Date Comments Adhesive Tape 06/29/2003 Sensitive to Naproxen Hives 05/28/2015 Ivp Dye Hives 08/20/2000 Latex Other (Please comment) 01/05/2015 Contact rash Ibuprofen Rash 01/05/2015 documented as of this encounter (statuses as of 08/29/2021) Medications Medication Sig Dispensed Refills Start Date [...] DAY 90 Tab 1 03/17/2021 Active Nystatin 371404 UNIT/GM External Powder (Nystop)Indications :Candidal skin infection [...] as of this encounter (statuses as of 08/29/2021) Active Problems Problem Noted Date History of [...] as of this encounter (statuses as of 08/29/2021) Resolved Problems Problem Noted Date Resolved Date Pulmonary hypertension 05/07/2017 Impaired fasting glucose 03/15/2017 018 Thyroid nodule [...] as of this encounter (statuses as of 08/29/2021) Immunizations Name Administration Dates Next Due COVID-19 mRNA, LNP-s, No Pre serve, 2-Dose Series (Beebrite) 12/16/2020,11/25/2020 Pneumococcal Conjugate Vacc, 13 Valent (Prevnar) [...] Description 09/05/2021 Home Visit Family Medicine Joan Romero, [facility] [address] [place] [id number] 09/20/2021 Home Visit [facility] Corrina Layne, SELENE [address] [place] [address] 10/04/2021 Office Visit Dermatology Marie Conrad MD 200 [facility] [place] [address] 10/16/2021 [facility] [address] [place] [address] [place] [address] Scheduled Procedures Name Priority Associated Diagnoses Date/Ti [...] exists COLONOSCOPY-EVERY 3 YRS AGES 18-100 06/30/2024 08/28/2021, 06/30/2021, 06/15/2021, Additional history exists DTaP,Tdap,and [...] Procedure Name Priority Date/Time Associated Diagnosis Comments COLONOSCOPY, OUTSIDE PROCEDURE Routine 08/28/2021 documented in this encounter Results * COLONOSCOPY, OUTSIDE PROCEDURE (08/28/2021) Specimen Narrative OUTSIDE LAB (SEE SCANNED REPORT) documented in this encounter Advance Directives Documents on File Type Date Recorded Patient Paster Operator Expl 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 Directive Advanced Directive Advanced Directive Care Teams Art Historian Relationship Specialty Start Date End Date Yariel Cardoza MD [address] [place] [address] [place] [address] PCP - General Family Medicine 12/01/18 documented as of this encounter
--- OUTSIDE RECORDS SUMMARY | 2023-06-07 07:50 | External Medical Summary | Summary of Care ---
Author Name Unknown Organization [place] [address] Care Team Providers Care Teletypewriter Installer Name Role Phone Yariel Cardoza MD Primary Care Provide r Encounter Details Date Type Department Care Team Description 08/28/2021 Scan Encounter Family Medicine [address] [place] [address] Yariel Cardoza MD [address] [place] [address] [place] [address] <No scans attached> Allergies Active [...] DAY 90 Tab 1 03/17/2021 Active Nystatin 998469 UNIT/GM External Powder (Nystop)Indications :Candidal skin infection [...] mRNA, LNP-s, No Pre serve, 2-Dose Series (AMVONET) 12/16/2020,11/25/2020 Pneumococcal Conjugate Vacc, 13 Valent (Prevnar) [...] 09/05/2021 Home Visit Family Medicine Joan Romero, [facility] Safety And Security Manager [address] [place] [address] [place] [id number] 09/20/2021 Home Visit [facility] Corrina Layne RN 132 [facility] [place] [address] 10/04/2021 Office Visit Dermatology Marie Conrad MD 200 [facility] [place] [address] 10/16/2021 Office Visit Family Medicine Yariel Cardoza MD [address] [place] [address] [place] [address] Scheduled Procedures Name Priority Associated Diagnoses Date/Ti [...] Documents on File Type Date Recorded Patient Track Template Maker Expl 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 Directive Advanced Directive Advanced Directive Care Teams Teletypewriter Installer Relationship Specialty Start Date End Date Yariel Cardoza MD [address] [place] [address] [place] [address] PCP - General Family Medicine 12/01/18 documented as of this encounter
--- OUTSIDE RECORDS SUMMARY | 2023-06-07 07:51 | External Medical Summary | Summary of Care ---
Author Name Unknown Organization [place] [address] Care Team Providers Care Dx Board Operator Name Role Phone Yariel Cardoza MD Primary Care Provide r Reason for Visit * Reason Onset Date Comments [facility]: Maintenance 07/25/2021 Encounter Details Date Type Department Care Team Description 07/25/2021 Scheduled Telephone [facility] [address] [facility] [place] [address] Corrina Layne RN 132 [facility] [place] [address] [phone] Allergies Active Allergy Reactions Severity Noted Date Comments Adhesive Tape 06/29/2003 Sensitive to Naproxen Hives 05/28/2015 Ivp Dye Hives 08/20/2000 Latex Other (Please comment) 01/05/2015 Contact rash Ibuprofen Rash 01/05/2015 documented as of this encounter (statuses as of 07/31/2021) Medications Medication Sig Dispensed Refills Start Date [...] mouth daily. 90 Tab 1 01/09/2021 Active Omeprazole 20 MG Oral Capsule Delayed Release (PriLOSEC)Indication s:Gastroesophageal reflux disease without esophagitis TAKE 2 CAPSULES BY MOUTH EVERY DAY 180 Cap 1 03/08/2021 Active Additional Information Patient taking differently: BID, Reported on 07/07/2021 Clopidogrel Bisulfate 75 MG Oral Tablet (pLAVix)Indications: Stenosis of right vertebral artery,TIA (transient ischemic attack) TAKE 1 TABLET BY MOUTH EVERY DAY 90 Tab 1 03/17/2021 Active Nystatin 219783 UNIT/GM External Powder (Nystop)Indications: Candidal skin infection [...] at bedtime. 90 Tab 1 07/07/2021 Active documented as of this encounter (statuses as of 07/31/2021) Active Problems Problem Noted Date History of [...] as of this encounter (statuses as of 07/31/2021) Resolved Problems Problem Noted Date Resolved Date [...] as of this encounter (statuses as of 07/31/2021) Immunizations Name Administration Dates Next Due COVID-19 [...] Never Used Comments:quit in 1995 Alcohol Use Drinks/Week oz/Week Comments No Food Insecurity Answer Date Recorded Within the past 12 months, y ou worried that your food would run out before you got money to buy more. Never true Within the past 12 months, t he food you bought just didn't last and you didn't have money to get more. Never true Sex Assigned at Date Recorded Not on file Job Start Date Occupation Industry Not on file Not on file Not on file documented as of this encounter Plan of Treatment Upcoming Encounters Date Type Specialty Care Team Description 10/04/2021 [facility] [address] [place] [address] [place] [address] [phone] 10/16/2021 Office Visit Family Medicine Yariel Cardoza MD [address] [place] [address] [place] [address] Health Maintenance Due Date Last Done Comments Zoster Vaccines (1 of 2) 1993 *ADVANCE DIRECTIVE NOT ON FILE 12/23/2015 *DEPRESSION SCREENING,ANNUAL FOR PTS 12 AND OVER 08/14/2020 COVID-19 Vaccine (3 - Pfizer booster) 06/18/2021 12/16/2020, 11/25/2020 Dexa Scan 08/17/2022 08/17/2015 DIABETES SCREEN EVERY 3 YRS-AGE 45 AND ABOVE 06/06/2024 06/06/2021, 12/26/2020, 12/26/2020, Additional history exists COLONOSCOPY-EVERY 3 YRS AGES 18-100 06/30/2024 06/30/2021, 06/15/2021, 03/26/2018, Additional history exists DTaP,Tdap,and Td Vaccines (2 - Td) 04/19/2028 04/19/2018, 05/03/2004, 05/03/2004 Pneumococcal Vaccine: 65+ Years Completed 03/28/2017, 09/21/2015 Influenza Vaccine (FLU shot) Completed , 08/12/2020, 07/10/2019, Additional history exists MENINGOCOCCAL (MENACTRA/MENVEO) Aged Out No longer eligible based on patient's age to complete this topic documented as of this encounter Implants Not on filedocumented as of this encounter Advance Directives Documents on File Type Date Recorded Patient Office Nurse Practitioner Expl 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
--- OUTSIDE RECORDS SUMMARY | 2023-06-07 07:51 | External Medical Summary | Summary of Care ---
Author Name Unknown Organization [place] [address] Care Team Providers Care Skiagrapher Name Role Phone Yariel Cardoza MD Primary Care Provide r Reason for Referral * Ancillary Services (Within 3 days (urgent)) Status Reason Specialty Diagnoses / Procedures Referred By Contact Referred To Contact Authorized Ancillary Services Required Gastroenterology Diagnoses Bloating Constipation, unspecified constipation type Intestinal obstruction, unspecified cause, unspecified whether partial or complete (HCC) Natalie Marshall PA-C [address] [place] [address] [place] [address] Question Answer Referral Priority Within 3 days (urgent) Comments ALERT: Do not order for pediatric patients (18 years or younger). Cancel off screen and order PEDS GASTROENTEROLOGY CONSULT (Type: 1 visit only-Evaluate and Treat) The following Pt. Instructions are available: - Gastro Colonoscopy Prep Instructions [79457] - Gastro Colonoscopy Prep Instructions (Nicaraguan Version) [[id number]] Go to the Pt. Instructions section within the Visit Navigator to access. Colonoscopy ASGE Guidelines: Abnormal finding on radiologic exam - obstruction, recurrent ADDITIONAL INFORMATION 1. Is the patient on Coumadin? No 2. Is the patient on Pradaxa? No Electronically signed by Natalie Marshall PA-C at * Precert (Within 24 hrs (call dept; emergent)) Status Reason Specialty Diagnoses / Procedures Referred By Contact Referred To Contact Pending Review Radiology Diagnoses Bloating Constipation, unspecified constipation type Intestinal obstruction, unspecified cause, unspecified whether partial or complete (HCC) Procedures CT ABD/PELVIS WO IV/ORAL CONTRAST CT ABD/PELVIS WO IV/ORAL CONTRAST Natalie Marshall PA-C [address] [place] [address] [place] [address] Electronically signed by Natalie Marshall PA-C at Reason for Visit * Reason Onset Date Comments Appointment 07/26/2021 [facility] Encounter Details Date Type Department Care Team Description 07/26/2021 Telephone Family Medicine [facility] [place] [id number] Natalie Marshall PA-C [address] [place] [address] [place] [address] [phone] Appointment ([place] ) Allergies Active Allergy Reactions Severity Noted Date Comments Adhesive Tape 06/29/2003 Sensitive to Naproxen Hives 05/28/2015 Ivp Dye Hives 08/20/2000 Latex Other (Please comment) 01/05/2015 Contact rash Ibuprofen Rash 01/05/2015 documented as of this encounter (statuses as of 07/28/2021) Medications Medication Sig Dispensed Refills Start Date [...] 07/07/2021 Clopidogrel Bisulfate 75 MG Oral Tablet (pLAVix)Indications :Stenosis of right vertebral artery,TIA (transient ischemic attack) TAKE 1 TABLET BY MOUTH EVERY DAY 90 Tab 1 03/17/2021 Active Nystatin 778872 UNIT/GM External Powder (Nystop)Indications :Candidal skin infection [...] at bedtime. 90 Tab 1 07/07/2021 Active Amoxicillin-Pot Clavulanate 875-125 MG Oral Tablet (Augmentin)Indicati ons:SOB (shortness of breath),Cough,COPD, severe (HCC) Take 1 Tab by mouth 2 times a day for 10 days. 20 Tab 0 07/26/2021 08/05/2021 Active predniSONE 50 MG Oral Tablet (Deltasone)Indicati ons:Allergic reaction to contrast material, subsequent encounter Take 1 tab 13 hrs before scan, take 1 tab 7 hrs before scan, take 1 tab 1 hr before scan with Benadryl 3 Tab 0 07/26/2021 Active documented as of this encounter (statuses as of 07/28/2021) Active Problems Problem Noted Date History of [...] as of this encounter (statuses as of 07/28/2021) Resolved Problems Problem Noted Date Resolved Date [...] as of this encounter (statuses as of 07/28/2021) Immunizations Name Administration Dates Next Due COVID-19 mRNA, LNP-s, No Pre serve, 2-Dose Series (Megathread) 12/16/2020,11/25/2020 Pneumococcal Conjugate Vacc, 13 Valent (Prevnar) [...] encounter Miscellaneous Notes * Telephone Encounter - Juan Chin OSA - 07/28/2021 2:09 PM EDT I tried to fax to [facility] again. My fax did get a Success Confirmation. * Telephone Encounter - Juan Chin OSA - 07/28/2021 12:11 PM EDT I called [facility] and spoke to Ruy. She requested that I fax the order to her at [phone] Attn: Ruy and she will contact pt. I faxed the order and the CT report. Their phone lines and Internet are down though so she cannot guarantee that the fax will get to them today. If not she will call me and we would have to try for Saturday. She was not able to provide mew/ any other fax # 's today. My fax does say Communication Error. I will try it again later today to see if maybe their lines are working. * Telephone Encounter - Irma Finnegan LPN - 07/27/2021 4:15 PM EDT Jatinder aware that pt can leave there and that I have a message to give her Transferred to speak to pt and made her aware of the message and she conveyed verbal understanding She wants to have her scope done by [facility] Please assist * Addendum Note - Natalie Marshall PA-C - 07/27/2021 4:05 PM EDT Addended by: NATALIE MARSHALL on: 07/27/2021 04:05 PM Modules accepted: Orders * Telephone Encounter - Natalie Marshall PA-C - 07/27/2021 4:02 PM EDT Please let patient know that she has a possible obstruction on the CT as well. She needs a scope MATT. I placed this order. Please see if she will go to our group or [facility]- needs scheduled within the week. Needs to go to ER if worsening over the weekend. Keep bowels moving. May need to continue Miralax and dulcolax to keep them moving Then send to scheduling * Telephone Encounter - Bia Beltre LPN - 07/27/2021 3:52 PM EDT Jatinder calling from [facility] radiology with CT scan results. Lengthy results - asking to fax over. Faxing to [phone] at the time of our call. Please call Jatinder back to inform if patient can leave. Patient currently awaiting. [phone] * Telephone Encounter - Zulema Land OSA - 07/27/2021 1:09 PM EDT 07/27/21 4:[address] abd/pelvis w/o contrast at [facility]. Pt aware of date and time, and aware to be there at 3:30 pm and not to wear any metal or jewelry. Order faxed to [phone]. [facility] - [id number]. * Telephone Encounter - Natalie Marshall PA-C - 07/27/2021 11:26 AM EDT Yes, changed this to CT WITHOUT contrast. Thanks Trudy * Telephone Encounter - Zulema Land OSA - 07/27/2021 11:06 AM EDT I called [facility] to schedule the CT, they have on file that she has allergies to iodinated dyes. They wanted to me check before they schedule her to make sure she is able to be scheduled. * Telephone Encounter - Natalie Marshall PA-C - 07/27/2021 11:01 AM EDT Let's change this to CT WITHOUT contrast. I changed order. Thanks Trudy * Telephone Encounter - Natalie Marshall PA-C - 07/27/2021 10:53 AM EDT I talked to CT - they did not recommend doing outpatient CT with contrast due to history of dye allergy unless this is done at [facility]. May be best to be done through the ER. I'm waiting for a reply from Dr. Cardoza with her opinion as well. * Telephone Encounter - Salma Alaniz LPN - 07/27/2021 10:17 AM EDT Pt notified, verbalized understanding. Pt states she did have a severe reaction- she swelled up eyes were swollen shut and rash. Pt cannotremember if she had any throat swelling or not it was "quite a while ago". Pt will come here today for labs. * Telephone Encounter - Zulema Land OSA - 07/27/2021 9:29 AM EDT I sent a high priority message to pre cert team for authorization to schedule CT at [facility]. * Telephone Encounter - Natalie Marshall PA-C - 07/26/2021 3:45 PM EDT Please let patient know: She looks like she may have pneumonia- continue antibiotic we talked about. She also may have continued obstruction in her bowels but because she is moving her bowels and isn't in severe pain, we can try to do an outpatient scan. I ordered CT. She needs this MATT. If she gets pain or bowels stop moving, needs to go to ER Has she had severe reaction to IV dye? We should premedicate her if she has had a mild reaction to make sure she doesn't react-sent this to her pharmacy with instructions. She also will need blood work prior to CT- at least 24 hours prior here or can get it right before the scan if she goes to [facility] for labs and scan Thanks documented in this encounter Plan of Treatment Upcoming Encounters Date Type Specialty Care Team Description 10/04/2021 Office Visit Dermatology Marie Conrad MD [address] [place] [address] [place] [address] [phone] 10/16/2021 Office Visit Family Medicine Yariel Cardoza MD [address] [place] [address] [place] [address] [phone] Scheduled Orders Name Type Priority Associated Diagnoses Orde r Schedule CREATININE Lab STAT Intestinal obstruction, unspecified cause, unspecified whether partial or complete (HCC) Expected: 07/27/2021, Expires: 07/26/2022 BUN Lab STAT Intestinal obstruction, unspecified cause, unspecified whether partial or complete (HCC) Expected: 07/26/2021 (Approximate), Expires: 07/26/2022 Scheduled Referrals Name Type Priority Associated Diagnoses Orde r Schedule COLONOSCOPY, GI REFERRAL OP Referral Within 3 days (urgent) Bloating Constipation, unspecified constipation type Intestinal obstruction, unspecified cause, unspecified whether partial or complete (HCC) Ordered: 07/27/2021 Health Maintenance Due Date Last Done Comments [...] Procedure Name Priority Date/Time Associated Diagnosis Comments CT ABD/PELVIS WO IV/ORAL CONTRAST STAT 07/27/2021 Bloating Constipation, unspecified constipation type Intestinal obstruction, unspecified cause, unspecified whether partial or complete (HCC) documented in this encounter Results * CT ABD/PELVIS WO IV/ORAL CONTRAST (07/27/2021) Specimen Narrative Performed At documented in this encounter Visit Diagnoses Diagnosis Allergic reaction to contrast material, subsequent encounter- Primary Bloating Flatulence, eructation, and gas pain Constipation, unspecified constipation type Intestinal obstruction, unspecified cause, unspecified whether partial or complete (HCC) Ileus of unspecified type (HCC) documented in this encounter Advance Directives Documents on File Type Date Recorded Patient Rn Heart Expl 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
--- OUTSIDE RECORDS SUMMARY | 2023-06-07 07:51 | External Medical Summary | Summary of Care ---
Author Name Unknown Organization [place] [address] Care Team Providers Care Pharmacy Student Name Role Phone Yariel Cardoza MD Primary Care Provide r Reason for Visit * Reason Onset Date Comments Advice 07/31/2021 Encounter Details Date Type Department Care Team Description 07/31/2021 Telephone Family [address] [address] Hillary White PA-C [address] [place] [address] [place] [phone] Advice Allergies Active Allergy Reactions Severity Noted Date Comments Adhesive Tape 06/29/2003 Sensitive to Naproxen Hives 05/28/2015 Ivp Dye Hives 08/20/2000 Latex Other (Please comment) 01/05/2015 Contact rash Ibuprofen Rash 01/05/2015 documented as of this encounter (statuses as of 08/04/2021) Medications Medication Sig Dispensed Refills Start Date [...] DAY 90 Tab 1 03/17/2021 Active Nystatin 698639 UNIT/GM External Powder (Nystop)Indications :Candidal skin infection [...] as of this encounter (statuses as of 08/04/2021) Active Problems Problem Noted Date History of [...] as of this encounter (statuses as of 08/04/2021) Resolved Problems Problem Noted Date Resolved Date [...] as of this encounter (statuses as of 08/04/2021) Immunizations Name Administration Dates Next Due COVID-19 [...] encounter Miscellaneous Notes * Telephone Encounter - Tamie Reyes OSA - 08/04/2021 1:01 PM EDT Pt called advising she has been scheduled for a colonoscopy on 08/28. Pt asking if she is to continue the medication regimen she is on. Pt advised she is having to move her bowels frequently. Please call back to advise at [phone]. * Telephone Encounter - Katrina Alaniz CCMA - 08/01/2021 2:00 PM EDT Per Hillary, her CT showed a possible obstruction. She needs to have colonoscopy MATT. I spoke withJayla and made her aware. She is going to call Ruy back to get scheduled. * Telephone Encounter - Kellen Driscoll OSA - 08/01/2021 1:00 PM EDT Patient calling in to check on the status of previous message. Patient states that she thought the test that was ordered was for an endoscopy. Patient states that [facility] had told her the test wasfor a colonoscopy. Patient states that she had a colonoscopy in June and thought another test had been ordered. Please advise. * Telephone Encounter - Katrina Alaniz CCMA - 08/01/2021 11:33 AM EDT Spoke with Ruy at [facility] - she is aware. She is going to talk with Jayla. * Telephone Encounter - Hillary White PA-C - 08/01/2021 7:40 AM EDT It is a colonoscopy not an EGD * Telephone Encounter - Courtney Montiel LPN - 07/31/2021 4:46 PM EDT Please advise * Telephone Encounter - Felipe Kent OSA - 07/31/2021 1:01 PM EDT Ruy calling in from [facility] stating that she received the referral for the colonoscopy for the patient. She stated that the patient advised her that she thought she was having an EGD, not a colonoscopy. Please advise Ruy at [facility] to clarify. Thank you. documented in this encounter Plan of Treatment Upcoming Encounters Date Type Specialty Care Team Description 10/04/2021 Office Visit Dermatology Marie Conrad MD [address] [place] [address], [place] [id number] 10/16/2021 Office Visit Family Medicine Yariel Cardoza MD [address] [place] [address] [place] [address] Health Maintenance Due Date [...] Documents on File Type Date Recorded Patient Foundation Maker Expl 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
--- OUTSIDE RECORDS SUMMARY | 2023-06-07 07:51 | External Medical Summary | Summary of Care ---
Author Name Unknown Organization [place] [address] Care Team Providers Care Bi Developer Name Role Phone Yariel Cardoza MD Primary Care Provide r Reason for Visit * Reason Onset Date Comments Advice 07/31/2021 Encounter Details Date Type Department Care Team Description 07/31/2021 Telephone Family [address] [address] Hillary White PA-C [address] [place] [address] [place] [phone] Advice Allergies Active Allergy Reactions Severity Noted Date Comments Adhesive Tape 06/29/2003 Sensitive to Naproxen Hives 05/28/2015 Ivp Dye Hives 08/20/2000 Latex Other (Please comment) 01/05/2015 Contact rash Ibuprofen Rash 01/05/2015 documented as of this encounter (statuses as of 08/06/2021) Medications Medication Sig Dispensed Refills Start Date [...] DAY 90 Tab 1 03/17/2021 Active Nystatin 149700 UNIT/GM External Powder (Nystop)Indications :Candidal skin infection [...] with Benadryl 3 Tab 0 07/26/2021 Active Amoxicillin-Pot Clavulanate 875-125 MG Oral Tablet (Augmentin)Indicati ons:SOB (shortness of breath),Cough,COPD, severe (HCC) Take 1 Tab by mouth 2 times a day for 10 days. 20 Tab 0 07/26/2021 08/05/2021 documented as of this encounter (statuses as of 08/06/2021) Active Problems Problem Noted Date History of [...] as of this encounter (statuses as of 08/06/2021) Resolved Problems Problem Noted Date Resolved Date [...] as of this encounter (statuses as of 08/06/2021) Immunizations Name Administration Dates Next Due COVID-19 [...] encounter Miscellaneous Notes * Telephone Encounter - Елена Brooks RN - 08/06/2021 10:34 AM EDT Pt advised and agreeable * Telephone Encounter - Hillary White PA-C - 08/04/2021 3:53 PM EDT Continue regimen because we don't want her getting backed up. She can try to take Dulcolax every other day instaed of every day if she likes, but if her bowels slow, she may run the risk of getting worse. She needs to go to the ED If she gets severe pain or stops moving her bowels. * Telephone Encounter - Tamie Reyes OSA - 08/04/2021 1:01 PM EDT Pt called advising she has been scheduled for a colonoscopy on 08/28. Pt asking if she is to continue the medication regimen she is on. Pt advised she is having to move her bowels frequently. Please call back to advise at [phone]. * Telephone Encounter - Katrina Alaniz CCMA - 08/01/2021 2:00 PM EDT Per Hillary, her CT showed a possible obstruction. She needs to have colonoscopy MATT. I spoke withJudy and made her aware. She is going to call Ruy back to get scheduled. * Telephone Encounter - Kellen Driscoll OSA - 08/01/2021 1:00 PM EDT Patient calling in to check on the status of previous message. Patient states that she thought the test that was ordered was for an endoscopy. Patient states that [facility] the test wasfor a [facility]. Patient states that she had a colonoscopy in June and thought another test had been ordered. Please advise. * Telephone Encounter - Katrina Alaniz CCMA - 08/01/2021 11:33 AM EDT Spoke with Ruy at [facility] - she is aware. She is going to talk with Jayla. * Telephone Encounter - Hillary White PA-C - 08/01/2021 7:40 AM EDT It is a colonoscopy not an EGD * Telephone Encounter - Courtney Montiel LPN - 07/31/2021 4:46 PM EDT Please advise * Telephone Encounter - Felipe Kent OSA - 07/31/2021 1:01 PM EDT Ruy calling in from [facility] stating that she received the referral for the colonoscopy for the patient. She stated that the patient advised her that she thought she was having an EGD, not a colonoscopy. Please advise Ruy at [facility] to clarify. Thank you. documented in this encounter Plan of Treatment Upcoming Encounters Date Type Specialty Care Team Description 10/04/2021 Office Visit Dermatology Marie Conrad MD [address] [place] [address] [place] [address] [phone] 10/16/2021 Office Visit Family Medicine Yariel Cardoza MD [address] [place] [address] [place] [address] Health Maintenance Due Date [...] Documents on File Type Date Recorded Patient Outreach Assistant Expl 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
--- OUTSIDE RECORDS SUMMARY | 2023-06-07 07:51 | External Medical Summary | Summary of Care ---
Author Name Unknown Organization [place] [address] Care Team Providers Care Auto Service Mechanic Name Role Phone Yariel Cardoza MD Primary Care Provide r Reason for Visit * Reason Onset Date Comments Advice 07/31/2021 Encounter Details Date Type Department Care Team Description 07/31/2021 Telephone Family [address] [address] Hillary White PA-C [address] [place] [address] [place] [phone] Advice Allergies Active Allergy Reactions Severity Noted Date Comments Adhesive Tape 06/29/2003 Sensitive to Naproxen Hives 05/28/2015 Ivp Dye Hives 08/20/2000 Latex Other (Please comment) 01/05/2015 Contact rash Ibuprofen Rash 01/05/2015 documented as of this encounter (statuses as of 08/01/2021) Medications Medication Sig Dispensed Refills Start Date [...] DAY 90 Tab 1 03/17/2021 Active Nystatin 237655 UNIT/GM External Powder (Nystop)Indications :Candidal skin infection [...] as of this encounter (statuses as of 08/01/2021) Active Problems Problem Noted Date History of [...] as of this encounter (statuses as of 08/01/2021) Resolved Problems Problem Noted Date Resolved Date [...] as of this encounter (statuses as of 08/01/2021) Immunizations Name Administration Dates Next Due COVID-19 [...] encounter Miscellaneous Notes * Telephone Encounter - Kellen Driscoll, VIRA - 08/01/2021 1:00 PM EDT Patient calling in to check on the status of previous message. Patient states that she thought the test that was ordered was for an endoscopy. Patient states that [facility] had told her the test wasfor a colonoscopy. Patient states that she had a colonoscopy in June and thought another test had been ordered. Please advise. * Telephone Encounter - Katrina Alaniz CCMA - 08/01/2021 11:33 AM EDT Spoke with Ruy at [facility] - she is aware. She is going to talk with Jayla. * Telephone Encounter - Hillary White PA-C - 08/01/2021 7:40 AM EDT It is a colonoscopy not an EGD * Telephone Encounter - Courtney Montiel LPN - 07/31/2021 4:46 PM EDT Please advise * Telephone Encounter - Felipe Kent OSA - 07/31/2021 1:01 PM EDT Ruy calling in from [facility] stating that she received the referral for the colonoscopy for the patient. She stated that the patient advised her that she thought she was having an EGD, not a colonoscopy. Please advise Ruy at [facility] to clarify. Thank you. 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
--- OUTSIDE RECORDS SUMMARY | 2023-06-07 07:51 | External Medical Summary | Summary of Care ---
Author Name Unknown Organization [place] [address] Care Team Providers Care Leather Sponger Name Role Phone Yariel Cardoza MD Primary Care Provide r Reason for Visit * Reason Onset Date Comments Advice 07/31/2021 Encounter Details Date Type Department Care Team Description 07/31/2021 Telephone Family [address] [address] Hillary White PA-C [address] [place] [address] [place] [phone] Advice Allergies Active Allergy Reactions Severity Noted [...] DAY 90 Tab 1 03/17/2021 Active Nystatin 200159 UNIT/GM External Powder (Nystop)Indications :Candidal skin infection [...] encounter Miscellaneous Notes * Telephone Encounter - Katrina Alaniz CCMA [...] was for an endoscopy. Patient states that [facility] had told her the test wasfor a colonoscopy. Patient states that she had a colonoscopy in June and thought another test had been ordered. Please advise. * Telephone Encounter - Katrina Alaniz CCMA - 08/01/2021 11:33 AM EDT Spoke with Ruy at [facility] - she is aware. She is going to talk with Jayla. * Telephone Encounter - Hillary White PA-C - 08/01/2021 7:40 AM EDT It is a colonoscopy not an EGD * Telephone Encounter - Courtney Montiel LPN - 07/31/2021 4:46 PM EDT Please advise * Telephone Encounter - Felipe Kent OSA - 07/31/2021 1:01 PM EDT Ruy calling in from [facility] stating that she received the referral for the colonoscopy for the patient. She stated that the patient advised her that she thought she was having an EGD, not a colonoscopy. Please advise Ruy at [facility] to clarify. Thank you. documented in this encounter Plan of Treatment Upcoming Encounters Date Type Specialty Care Team Description 10/04/2021 Office Visit Dermatology Marie Conrad MD [address] [place] [address] [phone] 10/16/2021 Office Visit Family Medicine Yariel Cardoza MD [address] [place] [address] [place] [address] [phone] Health Maintenance Due Date Last Done Comments [...] Documents on File Type Date Recorded Patient Trim Technician Expl 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
--- OUTSIDE RECORDS SUMMARY | 2023-06-07 07:51 | External Medical Summary | Summary of Care ---
Author Name Unknown Organization [place] [address] Care Team Providers Care Factory Expert Name Role Phone Yariel Cardoza MD Primary Care Provide r Encounter Details Date Type Department Care Team Description 08/10/2021 Scan Encounter Family Medicine [address] [place] [address] Yariel Cardoza MD [address] [place] [address] [place] [address] <No scans attached> Allergies Active Allergy Reactions Severity Noted Date Comments Adhesive Tape 06/29/2003 Sensitive to Naproxen Hives 05/28/2015 Ivp Dye Hives 08/20/2000 Latex Other (Please comment) 01/05/2015 Contact rash Ibuprofen Rash 01/05/2015 documented as of this encounter (statuses as of 08/11/2021) Medications Medication Sig Dispensed Refills Start Date [...] DAY 90 Tab 1 03/17/2021 Active Nystatin 936627 UNIT/GM External Powder (Nystop)Indications: Candidal skin infection [...] as of this encounter (statuses as of 08/11/2021) Active Problems Problem Noted Date History of [...] transit constipation 07/20/2015 IBS (irritable bowel syndrome) 10/14/201 5 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) 07/20/2015 Bilateral carpal tunnel syndrome 015 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 documented as of this encounter (statuses as of 08/11/2021) Resolved Problems Problem Noted Date Resolved Date [...] as of this encounter (statuses as of 08/11/2021) Immunizations Name Administration Dates Next Due COVID-19 mRNA, LNP-s, No Pre serve, 2-Dose Series (Soxiable) 12/16/2020,11/25/2020 Pneumococcal Conjugate Vacc, 13 Valent (Prevnar) [...] Encounters Date Type Specialty Care Team Description 09/04/2021 Home Visit [facility] Corrina Layne RN [address] [facility] [place] [address] 10/04/2021 Office Visit Dermatology Marie Conrad MD [address] [place] [address] [place] [address] 10/16/2021 Office Visit Family Medicine Yariel Cardoza MD [address] [place] [address] [place] [address] [phone] Health Maintenance Due Date Last Done Comments [...] Documents on File Type Date Recorded Patient Sex Crimes Detective Expl 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
--- OUTSIDE RECORDS SUMMARY | 2023-06-07 07:51 | External Medical Summary | Summary of Care ---
Author Name Unknown Organization [place] [address] Care Team Providers Care Fish Hatchery Worker Name Role Phone Yariel Cardoza MD Primary Care Provide r Reason for Visit * Reason Onset Date Comments Advice 07/31/2021 Encounter Details Date Type Department Care Team Description 07/31/2021 Telephone Family [address] [address] Hillary White PA-C [address] [place] [address] [place] [phone] Advice Allergies Active Allergy Reactions Severity Noted [...] DAY 90 Tab 1 03/17/2021 Active Nystatin 703714 UNIT/GM External Powder (Nystop)Indications :Candidal skin infection [...] 11:33 AM EDT Spoke with Ruy at [facility] - she is aware. She is going to talk with Jayla. * Telephone Encounter - Hillary White PA-C - 08/01/2021 7:40 AM EDT It is a colonoscopy not an EGD * Telephone Encounter - Courtney Montiel LPN - 07/31/2021 4:46 PM EDT Please advise * Telephone Encounter - Felipe Kent OSA - 07/31/2021 1:01 PM EDT Ruy calling in from [facility] stating that she received the referral for the colonoscopy for the patient. She stated that the patient advised her that she thought she was having an EGD, not a colonoscopy. Please advise Ruy at [facility] to clarify. Thank you. documented in this encounter Plan of Treatment Upcoming Encounters Date Type Specialty Care Team Description 10/04/2021 Office Visit Dermatology aMrie Conrad MD [address] [place] [address] [place] [address] [phone] 10/16/2021 Office Visit Family Medicine Yariel Cardoza MD [address] [place] [address] [place] [address] [phone] Health Maintenance Due Date Last Done Comments [...] Documents on File Type Date Recorded Patient Instrument Maker And Repairer Expl 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
--- OUTSIDE RECORDS SUMMARY | 2023-06-07 07:51 | External Medical Summary | Summary of Care ---
Author Name Unknown Organization [place] [address] Care Team Providers Care Rn Med Surg Name Role Phone Yariel Cardoza MD Primary Care Provide r Reason for Visit * Reason Onset Date Comments Advice 07/31/2021 Encounter Details Date Type Department Care Team Description 07/31/2021 Telephone Family [address] [address] Hillary White PA-C [address] [place] [address] [place] [phone] Advice Allergies Active Allergy Reactions Severity Noted [...] DAY 90 Tab 1 03/17/2021 Active Nystatin 537052 UNIT/GM External Powder (Nystop)Indications :Candidal skin infection [...] frequently. Please call back to advise at [phone]. * Telephone Encounter - Katrina Alaniz CCMA [...] was for an endoscopy. Patient states that [facility] had told her the test wasfor a colonoscopy. Patient states that she had a colonoscopy in June and thought another test had been ordered. Please advise. * Telephone Encounter - Katrina Alaniz CCMA - 08/01/2021 11:33 AM EDT Spoke with Ruy at [facility] - she is aware. She is going to talk with Jayla. * Telephone Encounter - Hillary White PA-C - 08/01/2021 7:40 AM EDT It is a colonoscopy not an EGD * Telephone Encounter - Courtney Montiel LPN - 07/31/2021 4:46 PM EDT Please advise * Telephone Encounter - Felipe Kent OSA - 07/31/2021 1:01 PM EDT Ruy calling in from [facility] stating that she received the referral for the colonoscopy for the patient. She stated that the patient advised her that she thought she was having an EGD, not a colonoscopy. Please advise Ruy at [facility] to clarify. Thank you. documented in this encounter Plan of Treatment Upcoming Encounters Date Type Specialty Care Team Description 10/04/2021 Office Visit Dermatology Marie Conrad MD [address] [place] [address], [place] [phone] 10/16/2021 Office Visit Family Medicine Yariel Cardoza MD [address] [place] [address] [place] [address] Health Maintenance Due Date [...] Documents on File Type Date Recorded Patient Hot Metal Charger Expl 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
--- OUTSIDE RECORDS SUMMARY | 2023-06-07 07:51 | External Medical Summary | Summary of Care ---
Author Name Unknown Organization [place] [address] Care Team Providers Care Box Turner Name Role Phone Yariel Cardoza MD Primary Care Provide r Reason for Visit * Reason Onset Date Comments Advice 08/21/2021 patient having c olonoscopy on 08/28, needs to know when to stop Plavix Encounter Details Date Type Department Care Team Description 08/21/2021 Telephone Family Medicine [address] [address] Yariel Cardoza MD [address] [place] [address] [place] [address] Advice (patient having colonoscopy on 08/08... Allergies Active Allergy Reactions Severity Noted Date Comments Adhesive Tape 06/29/2003 Sensitive to Naproxen Hives 05/28/2015 Ivp Dye Hives 08/20/2000 Latex Other (Please comment) 01/05/2015 Contact rash Ibuprofen Rash 01/05/2015 documented as of this encounter (statuses as of 08/22/2021) Medications Medication Sig Dispensed Refills Start Date [...] DAY 90 Tab 1 03/17/2021 Active Nystatin 373178 UNIT/GM External Powder (Nystop)Indications: Candidal skin infection [...] as of this encounter (statuses as of 08/22/2021) Active Problems Problem Noted Date History of [...] as of this encounter (statuses as of 08/22/2021) Resolved Problems Problem Noted Date Resolved Date [...] as of this encounter (statuses as of 08/22/2021) Immunizations Name Administration Dates Next Due COVID-19 [...] Telephone Encounter - Salma Alaniz LPN - 08/22/2021 5:19 PM EST The colonoscopy is scheduled for 08/28 in 5 days, Dr. Cardoza aware and said it's fine to stop it now that will be 5 days. Pt notified. * Telephone Encounter - Yariel Cardoza MD - 08/22/2021 5:02 PM EST Is on it for TIA. She can hold for 1 week prior * Telephone Encounter - VIRA Agarwal - 08/21/2021 3:22 PM EST Please see previous encounter. I called Jayla to see who monitors her Plavix, and she said no one does. She was put on it about a year ago while in the hospital and just takes it every day. * Telephone Encounter - VIRA Luther - 08/21/2021 9:16 AM EST The patient is having a colonoscopy on 08/28 and needs to know when to stop staking her Plavix. Please advise: Jayla Freddy [phone] H documented in this encounter Plan of Treatment Upcoming Encounters Date Type Specialty Care Team Description 09/04/2021 Home Visit Family Medicine Joan Romero, [facility] Horticultural Specialty Grower [address] [place] [address] [place] [address] 09/20/2021 [facility] Corrina Layne RN [address] [place] [address] 10/04/2021 Office Visit Dermatology Marie Conrad MD [address] [place] [address] [place] [address] 10/16/2021 Office Visit Family Medicine Yariel Cardoza MD [address] [place] [address] [place] [phone] Scheduled Procedures Name Priority Associated Diagnoses Date/Ti [...] Documents on File Type Date Recorded Patient Triage Clinician Expl 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 Directive Advanced Directive Advanced Directive Care Teams Box Turner Relationship Specialty Start Date End Date Yariel Cardoza MD [address] [place] [address] [place] [address] PCP - General Family Medicine 12/01/18 documented as of this encounter
--- OUTSIDE RECORDS SUMMARY | 2023-06-07 07:51 | External Medical Summary | Summary of Care ---
Author Name Unknown Organization [place] [address] Care Team Providers Care Svp Operations Name Role Phone Yariel Cardoza MD Primary Care Provide r Reason for Visit * Reason Onset Date Comments Advice 07/31/2021 Encounter Details Date Type Department Care Team Description 07/31/2021 Telephone Family [address] [address] Hillary White PA-C [address] [place] [address] [place] [id number] Advice Allergies Active Allergy Reactions Severity Noted [...] DAY 90 Tab 1 03/17/2021 Active Nystatin 650257 UNIT/GM External Powder (Nystop)Indications :Candidal skin infection [...] encounter Miscellaneous Notes * Telephone Encounter - Hillary White PA-C [...] frequently. Please call back to advise at [phone]. * Telephone Encounter - Katrina Alaniz CCMA [...] was for an endoscopy. Patient states that [facility] had told her the test wasfor a colonoscopy. Patient states that she had a colonoscopy in June and thought another test had been ordered. Please advise. * Telephone Encounter - Katrina Alaniz CCMA - 08/01/2021 11:33 AM EDT Spoke with Ruy at [facility] - she is aware. She is going to talk with Jayla. * Telephone Encounter - Hillary Whiet PA-C - 08/01/2021 7:40 AM EDT It is a colonoscopy not an EGD * Telephone Encounter - Courtney Montiel LPN - 07/31/2021 4:46 PM EDT Please advise * Telephone Encounter - Felipe Kent OSA - 07/31/2021 1:01 PM EDT Ruy calling in from [facility] stating that she received the referral for the colonoscopy for the patient. She stated that the patient advised her that she thought she was having an EGD, not a colonoscopy. Please advise Ruy at [facility] to clarify. Thank you. documented in this encounter Plan of Treatment Upcoming Encounters Date Type Specialty Care Team Description 10/04[facility] [address] [place], [place] [address] [address] [phone] 10/16/2021 Office Visit Family Medicine Yariel Cardoza MD [address] [place] [address] [place] [address] Health Maintenance Due Date [...] Documents on File Type Date Recorded Patient Equity Manager Expl 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
--- OUTSIDE RECORDS SUMMARY | 2023-06-07 07:52 | External Medical Summary | Summary of Care ---
Author Name Unknown Organization [place] [address] Care Team Providers Care Electrotype Finisher Name Role Phone Yairel Cardoza MD Primary Care Provide r Reason for Visit * Reason Onset Date Comments Appointment 07/27/2021 Colonoscoopy Encounter Details Date Type Department Care Team Description 07/27/2021 Telephone Family Medicine [address] [place] [address] Hillary White PA-C [address] [place] [address] [place] [phone] Appointment (Colonoscoopy ) Allergies Active Allergy Reactions Severity Noted Date Comments Adhesive Tape 06/29/2003 Sensitive to Naproxen Hives 05/28/2015 Ivp Dye Hives 08/20/2000 Latex Other (Please comment) 01/05/2015 Contact rash Ibuprofen Rash 01/05/2015 documented as of this encounter (statuses as of 07/27/2021) Medications Medication Sig Dispensed Refills Start Date [...] DAY 90 Tab 1 03/17/2021 Active Nystatin 694484 UNIT/GM External Powder (Nystop)Indications :Candidal skin infection [...] as of this encounter (statuses as of 07/27/2021) Active Problems Problem Noted Date History of [...] as of this encounter (statuses as of 07/27/2021) Resolved Problems Problem Noted Date Resolved Date [...] as of this encounter (statuses as of 07/27/2021) Immunizations Name Administration Dates Next Due COVID-19 [...] encounter Miscellaneous Notes * Telephone Encounter - Zulema Land OSA - 07/27/2021 4:28 PM EDT Disregard this, Patient wants to go to [facility]. * Telephone Encounter - Zulema Land OSA - 07/27/2021 4:07 PM EDT Jayla hyde scheduled for a colonoscopy for: Bloating [R14.0] Constipation, unspecified constipation type [K59.00] Intestinal obstruction, unspecified cause, unspecified whether partial or complete (HCC) [K56.609] Within 3 days (urgent) documented in this encounter Plan of Treatment Upcoming Encounters Date Type Specialty Care Team Description 10/04/2021 Office Visit Dermatology Marie Conrad MD [address] [place] [address] [place] [address] [phone] 10/16/2021 Office Visit Family Medicine Yariel Cardoza MD [address] [place] [address] [place] [address] Health Maintenance Due Date [...] Documents on File Type Date Recorded 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
--- OUTSIDE RECORDS SUMMARY | 2023-06-07 07:52 | External Medical Summary | Summary of Care ---
Author Name Unknown Organization [place] [address] Care Team Providers Care Truck Service Technician Name Role Phone Yariel Cardoza MD Primary Care Provide r Reason for Referral * Ancillary Services (Within 3 days (urgent)) Status Reason Specialty Diagnoses / Procedures Referred By Contact Referred To Contact Authorized Ancillary Services Required Gastroenterology Diagnoses Bloating Constipation, unspecified constipation type Intestinal obstruction, unspecified cause, unspecified whether partial or complete (HCC) Hillary Marshall PA-C [address] [place] [address] [place] [address] Question Answer Referral Priority Within 3 days (urgent) Comments ALERT: Do not order for pediatric patients (18 years or younger). Cancel off screen and order PEDS GASTROENTEROLOGY CONSULT (Type: 1 visit only-Evaluate and Treat) The following Pt. Instructions are available: - Gastro Colonoscopy Prep Instructions [03430] - Gastro Colonoscopy Prep Instructions (Prydeinig Version) [16276] Go to the Pt. Instructions section within the Visit Navigator to access. Colonoscopy ASGE Guidelines: Abnormal finding on radiologic exam - obstruction, recurrent ADDITIONAL INFORMATION 1. Is the patient on Coumadin? No 2. Is the patient on Pradaxa? No Electronically signed by Hillary Marshall PA-C at * Precert (Within 24 hrs (call dept; emergent)) Status Reason Specialty Diagnoses / Procedures Referred By Contact Referred To Contact Pending Review Radiology Diagnoses Bloating Constipation, unspecified constipation type Intestinal obstruction, unspecified cause, unspecified whether partial or complete (HCC) Procedures CT ABD/PELVIS WO IV/ORAL CONTRAST CT ABD/PELVIS WO IV/ORAL CONTRAST Hillary Marshall PA-C [address] [place] [address] [place] [address] Electronically signed by Hillary Marshall PA-C at Reason for Visit * Reason Onset Date Comments Appointment 07/26/2021 [facility] Encounter Details Date Type Department Care Team Description 07/26/2021 Telephone Family Medicine [facility] [place] [id number] Hillary Marshall PA-C [address] [place] [address] [place] [address] [phone] Appointment ([place] ) Allergies Active Allergy Reactions Severity [...] DAY 90 Tab 1 03/17/2021 Active Nystatin 785523 UNIT/GM External Powder (Nystop)Indications :Candidal skin infection [...] mRNA, LNP-s, No Pre serve, 2-Dose Series ([employer]) 12/16/2020,11/25/2020 Pneumococcal Conjugate Vacc, 13 Valent (Prevnar) [...] encounter Miscellaneous Notes * Addendum Note - Hillary Marshall PA-C - 07/27/2021 4:05 PM EDT Addended by: HILLARY MARSHALL on: 07/27/2021 04:05 PM Modules accepted: Orders * Telephone Encounter - Hillary Marshall PA-C - 07/27/2021 4:02 PM EDT [...] 07/27/2021 3:52 PM EDT Jatinder calling from [facility] radiology with CT scan results. Lengthy results - asking to fax over. Faxing to [phone] at the time of our call. Please call Jatinder back to inform if patient can leave. Patient currently awaiting. [phone] * Telephone Encounter - Zulema Land OSA - 07/27/2021 1:09 PM EDT 07/27/21 4:[address] abd/pelvis w/o contrast at [facility]. Pt aware of date and time, and aware to be there at 3:30 pm and not to wear any metal or jewelry. Order faxed to [phone]. [facility] auth - [id number]. * Telephone Encounter - Hillary Masrhall PA-C - 07/27/2021 11:26 AM EDT Yes, changed this to CT WITHOUT contrast. 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 They wanted to me check before they schedule her to make sure she is able to be scheduled. * Telephone Encounter - Hillary Marshall PA-C - 07/27/2021 11:01 AM EDT Let's change this to CT WITHOUT contrast. I changed order. Thanks Trudy * Telephone Encounter - Hillary Marshall PA-C - 07/27/2021 10:53 AM EDT I talked to CT - they did not recommend doing outpatient CT with contrast due to history of dye allergy unless this is done at [facility]. May be best to be done [...] team for authorization to schedule CT at [facility]. * Telephone Encounter - Hillary Marshall PA-C - 07/26/2021 3:45 PM EDT [...] before the scan if she goes to [facility] for labs and scan Thanks documented in this encounter Plan of Treatment Upcoming Encounters Date Type Specialty Care Team Description 10/04/2021 Office Visit Dermatology Marie Conrad MD [address] [facility] [place] [address] [phone] 10/16/2021 Office Visit Family Medicine Yariel Cardoza MD [address] [place] [address] [place] [address] [phone] Scheduled Orders Name Type Priority Associated Diagnoses Orde r Schedule CREATININE Lab STAT Intestinal obstruction, unspecified cause, unspecified whether partial or complete (HCC) Expected: 07/27/2021, Expires: 07/26/2022 BUN Lab STAT Intestinal obstruction, unspecified cause, unspecified whether partial or complete (HCC) Expected: 07/26/2021 (Approximate), Expires: 07/26/2022 CT ABD/PELVIS WO IV/ORAL CONTRAST Medical Imaging STAT Bloating Constipation, unspecified constipation type Intestinal obstruction, unspecified cause, unspecified whether partial or complete (HCC) Ordered: 07/27/2021 Scheduled Referrals Name Type Priority Associated Diagnoses [...] as of this encounter Visit Diagnoses Diagnosis Allergic reaction to contrast material, subsequent encounter- Primary Bloating Flatulence, eructation, and gas pain Constipation, unspecified constipation type Intestinal obstruction, unspecified cause, unspecified whether partial or complete (HCC) Ileus of unspecified type (HCC) documented in this encounter Advance Directives Documents on File Type Date Recorded 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
--- OUTSIDE RECORDS SUMMARY | 2023-06-07 07:52 | External Medical Summary | Summary of Care ---
Author Name Unknown Organization [place] [address] Care Team Providers Care Lap Winding Machine Operator Name Role Phone Yariel Cardoza MD Primary Care Provide r Reason for Referral * Precert (Within 24 hrs (call dept; emergent)) Status Reason Specialty Diagnoses / Procedures Referred By Contact Referred To Contact Pending Review Radiology Diagnoses Bloating Constipation, unspecified constipation type Intestinal obstruction, unspecified cause, unspecified whether partial or complete (HCC) Procedures CT ABD/PELVIS WO IV/ORAL CONTRAST CT ABD/PELVIS WO IV/ORAL CONTRAST Hillary White PA-C [address] [place] [address] [place] [address] Electronically signed by Hillary White PA-C at Reason for Visit * Reason Onset Date Comments Appointment 07/26/2021 [place] Encounter Details Date Type Department Care Team Description 07/26/2021 Telephone Family Medicine [address] [place] [phone] Hillary White PA-C [address] [place] [address] [place] [address] [phone] Appointment ([place] ) Allergies Active Allergy Reactions Severity Noted [...] DAY 90 Tab 1 03/17/2021 Active Nystatin 402212 UNIT/GM External Powder (Nystop)Indications :Candidal skin infection [...] mRNA, LNP-s, No Pre serve, 2-Dose Series ([employer]) 12/16/2020,11/25/2020 Pneumococcal Conjugate Vacc, 13 Valent (Prevnar) [...] pm CT abd/pelvis w/o contrast at [facility]. Pt aware of date and time, and aware to be there at 3:30 pm and not to wear any metal or jewelry. Order faxed to [phone]. [facility] auth - [id number]. * Telephone Encounter - Hillary White PA-C - 07/27/2021 11:26 AM EDT Yes, changed this to CT WITHOUT contrast. 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 They wanted to me check before they schedule her to make sure she is able to be scheduled. * Telephone Encounter - Hillary White PA-C - 07/27/2021 11:01 AM EDT Let's change this to CT WITHOUT contrast. I changed order. Thanks Trudy * Telephone Encounter - Hillary White PA-C - 07/27/2021 10:53 AM EDT I talked to CT - they did not recommend doing outpatient CT with contrast due to history of dye allergy unless this is done at [facility]. May be best to be done through [...] for authorization to schedule CT at [facility]. * Telephone Encounter - Hillary White PA-C - 07/26/2021 3:45 PM EDT Please [...] Care Team Description 10/04/2021 Office Visit Dermatology [place], Marie Bowman MD [address] [facility] [place] [address] [phone] 10/16/2021 Office Visit Family Medicine Yariel Cardoza MD [address] [place] [address] [place] [address] Scheduled Orders Name Type Priority Associated Diagnoses [...] or complete (HCC) documented in this encounter Advance Directives Documents on File Type Date Recorded Patient Personnel Assistant Expl 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
--- OUTSIDE RECORDS SUMMARY | 2023-06-07 07:52 | External Medical Summary | Summary of Care ---
Author Name Unknown Organization [place] [address] Care Team Providers Care Cabana Attendant Name Role Phone Yariel Cardoza MD [...] ABD/PELVIS WO IV/ORAL CONTRAST Hillary White PA-C [address] [place] [address] [place] [address] Electronically signed by Hillary White PA-C at Reason for Visit * Reason Onset Date Comments Appointment 07/26/2021 [place] Encounter Details Date Type Department Care Team Description 07/26/2021 Telephone Family Medicine [address] [place] [phone] Hillary White PA-C [address] [place] [address] [place] [address] [phone] Appointment ([place] ) Allergies Active Allergy Reactions Severity Noted [...] DAY 90 Tab 1 03/17/2021 Active Nystatin 674652 UNIT/GM External Powder (Nystop)Indications :Candidal skin infection [...] mRNA, LNP-s, No Pre serve, 2-Dose Series ([employer]) 12/16/2020,11/25/2020 Pneumococcal Conjugate Vacc, 13 Valent (Prevnar) [...] 4:[address] abd/pelvis w/o contrast at [facility]. Pt aware of date and time, and aware to be there at 3:30 pm and not to wear any metal or jewelry. Order faxed to [phone]. [facility] auth - [id number]. * Telephone Encounter - Hillary White PA-C - 07/27/2021 11:26 AM EDT Yes, changed this to CT WITHOUT contrast. Thanks Trudy * Telephone Encounter - Zulema Land OSA - 07/27/2021 11:06 AM EDT I called [facility] to schedule the CT, they have on [...] dye allergy unless this is done at [facility]. May be best to be done through [...] team for authorization to schedule CT at [facility]. * Telephone Encounter - Hillary White PA-C [...] before the scan if she goes to 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
--- OUTSIDE RECORDS SUMMARY | 2023-06-07 07:52 | External Medical Summary | Summary of Care ---
Author Name Unknown Organization [place] [address] Care Team Providers Care Retort Engineer Name Role Phone Yariel Cardoza MD Primary Care Provide r Reason for Referral * Ancillary Services (Within 3 days (urgent)) Status Reason Specialty Diagnoses / Procedures Referred By Contact Referred To Contact Authorized Ancillary Services Required Gastroenterology Diagnoses Bloating Constipation, unspecified constipation type Intestinal obstruction, unspecified cause, unspecified whether partial or complete (HCC) Natalie Marshall PA-C [address] [place] [address] [place] [address] Question Answer Referral Priority Within 3 days (urgent) Comments ALERT: Do not order for pediatric patients (18 years or younger). Cancel off screen and order PEDS GASTROENTEROLOGY CONSULT (Type: 1 visit only-Evaluate and Treat) The following Pt. Instructions are available: - Gastro Colonoscopy Prep Instructions [20996] - Gastro Colonoscopy Prep Instructions (Cymro Version) [34363] Go to the Pt. Instructions section within [...] ABD/PELVIS WO IV/ORAL CONTRAST Natalie Marshall PA-C [address] [place] [address] [place] [address] Electronically signed by Natalie Marshall PA-C at Reason for Visit * Reason Onset Date Comments Appointment 07/26/2021 [facility] Encounter Details Date Type Department Care Team Description 07/26/2021 Telephone Family Medicine [facility] [place] [id number] Natalie Marshall PA-C [address] [place] [address] [place] [address] [phone] Appointment ([place] ) Allergies Active Allergy Reactions Severity Noted [...] DAY 90 Tab 1 03/17/2021 Active Nystatin 052181 UNIT/GM External Powder (Nystop)Indications :Candidal skin infection [...] mRNA, LNP-s, No Pre serve, 2-Dose Series ([employer]) 12/16/2020,11/25/2020 Pneumococcal Conjugate Vacc, 13 Valent (Prevnar) [...] encounter Miscellaneous Notes * Telephone Encounter - Irma Finnegan LPN - 07/27/2021 4:15 PM EDT Jatinder aware that pt can leave there and that I have a message to give her Transferred to speak to pt and made her aware of the message and she conveyed verbal understanding She wants to have [place] [facility] Please assist * Addendum Note - Natalie [...] 07/27/2021 3:52 PM EDT Jatinder calling from [facility] radiology with CT scan results. Lengthy results - asking to fax over. Faxing to [phone] at the time of our call. Please call Jatinder back to inform if patient can leave. Patient currently awaiting. [phone] * Telephone Encounter - Zulema Land OSA - 07/27/2021 1:09 PM EDT 07/27/21 4:[address] abd/pelvis w/o contrast at [facility]. Pt aware of date and time, and aware to be there at 3:30 pm and not to wear any metal or jewelry. Order faxed to [phone]. [facility] auth - [id number]. * Telephone Encounter - Natalie Marshall PA-C - 07/27/2021 11:26 AM EDT Yes, changed this to CT WITHOUT contrast. Thanks Trudy * Telephone Encounter - Zulema Land OSA - 07/27/2021 11:06 AM EDT I called [facility] to schedule the CT, they have on [...] dye allergy unless this is done at [facility]. May be best to be done through [...] team for authorization to schedule CT at [facility]. * Telephone Encounter - Natalie Marshall PA-C [...] before the scan if she goes to [facility] for labs and scan Thanks documented in this encounter Plan of Treatment Upcoming Encounters Date Type Specialty Care Team Description 10/04/2021 Office Visit Dermatology Marie Conrad MD [address] [place] [address] [place] [address] [phone] 10/16/2021 Office Visit Family Medicine Yariel Cardoza MD [address] [place] [address] [place] [phone] Scheduled Orders Name Type Priority Associated Diagnoses [...] Documents on File Type Date Recorded Patient Business Development Manager Expl 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
--- OUTSIDE RECORDS SUMMARY | 2023-06-07 07:52 | External Medical Summary | Summary of Care ---
Author Name Unknown Organization [place] [address] Care Team Providers Care Clip Wrapper Name Role Phone Yariel Cardoza MD Primary [...] ABD/PELVIS WO IV/ORAL CONTRAST Hillary White PA-C [address] [place] [address] [place] [address] Electronically signed by Hillary White PA-C at Reason for Visit * Reason Onset Date Comments Appointment 07/26/2021 [place] Encounter Details Date Type Department Care Team Description 07/26/2021 Telephone Family Medicine [address] [place] [phone] Hillary White PA-C [address] [place] [address] [place] [address] [phone] Appointment ([place] ) Allergies Active Allergy Reactions Severity [...] DAY 90 Tab 1 03/17/2021 Active Nystatin 758767 UNIT/GM External Powder (Nystop)Indications :Candidal skin infection [...] mRNA, LNP-s, No Pre serve, 2-Dose Series ([employer]) 12/16/2020,11/25/2020 Pneumococcal Conjugate Vacc, 13 Valent (Prevnar) [...] encounter Miscellaneous Notes * Telephone Encounter - Bia Beltre LPN - 07/27/2021 3:52 PM EDT Jatinder calling from [facility] radiology with CT scan results. Lengthy results - asking to fax over. Faxing to [phone] at the time of our call. Please call Jatinder back to inform if patient can leave. Patient currently awaiting. [phone] * Telephone Encounter - Zulema Land OSA - 07/27/2021 1:09 PM EDT 07/27/21 4:[address] abd/pelvis w/o contrast at [facility]. Pt aware of date and time, and aware to be there at 3:30 pm and not to wear any metal or jewelry. Order faxed to [phone]. [facility] auth - [id number]. * Telephone Encounter - Hillary White PA-C - 07/27/2021 11:26 AM EDT Yes, changed this to CT WITHOUT contrast. Thanks Trudy * Telephone Encounter - Zulema Land OSA - 07/27/2021 11:06 AM EDT I called [facility] to schedule the CT, they have [...] allergy unless this is done at [facility]. May be best to be done [...] for authorization to schedule CT at [facility]. 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
--- OUTSIDE RECORDS SUMMARY | 2023-06-07 07:52 | External Medical Summary | Summary of Care ---
Author Name Unknown Organization [place] [address] Care Team Providers Care Tree Tapping Laborer Name Role Phone Yariel Cardoza MD Primary Care Provide r Reason for Referral * Ancillary Services (Within 3 days (urgent)) Status Reason Specialty Diagnoses / Procedures Referred By Contact Referred To Contact Authorized Ancillary Services Required Gastroenterology Diagnoses Bloating Constipation, unspecified constipation type Intestinal obstruction, unspecified cause, unspecified whether partial or complete (HCC) Natalie Marshall PA-C [address] [place] [address] [place] [address] Question Answer Referral Priority Within 3 days (urgent) Comments ALERT: Do not order for pediatric patients (18 years or younger). Cancel off screen and order PEDS GASTROENTEROLOGY CONSULT (Type: 1 visit only-Evaluate and Treat) The following Pt. Instructions are available: - Gastro Colonoscopy Prep Instructions [66150] - Gastro Colonoscopy Prep Instructions (Kosovan Version) [63038] Go to the Pt. Instructions section within [...] ABD/PELVIS WO IV/ORAL CONTRAST Natalie Marshall PA-C [address] [place] [address] [place] [id number] Electronically signed by Natalie Marshall PA-C at Reason for Visit * Reason Onset Date Comments Appointment 07/26/2021 [facility] Encounter Details Date Type Department Care Team Description 07/26/[address] [facility] [place] [id number] Natalie Marshall PA-C [address] [place] [address] [place] [address] [phone] Appointment ([place] ) Allergies Active Allergy Reactions Severity [...] DAY 90 Tab 1 03/17/2021 Active Nystatin 770466 UNIT/GM External Powder (Nystop)Indications :Candidal skin infection [...] mRNA, LNP-s, No Pre serve, 2-Dose Series (Podio) 12/16/2020,11/25/2020 Pneumococcal Conjugate Vacc, 13 Valent (Prevnar) [...] - 07/28/2021 12:11 PM EDT I called [facility] and spoke to Ruy. She requested that I fax the order to her at [phone] Attn: Ruy and she will contact pt. [...] 07/27/2021 3:52 PM EDT Jatinder calling from [facility] radiology with CT scan results. Lengthy results - asking to fax over. Faxing to [phone] at the time of our call. Please call Jatinder back to inform if patient can leave. Patient currently awaiting. [phone] * Telephone Encounter - Zulema Land OSA - 07/27/2021 1:09 PM EDT 07/27/21 4:[address] abd/pelvis w/o contrast at [facility]. Pt aware of date and time, and aware to be there at 3:30 pm and not to wear any metal or jewelry. Order faxed to [phone]. MEKHI Ellington auth - [id number]. * Telephone Encounter - Natalie Marshall PA-C - 07/27/2021 11:26 AM EDT Yes, changed this to CT WITHOUT contrast. Thanks Trudy * Telephone Encounter - Zulema Land OSA - 07/27/2021 11:06 AM EDT I called [facility] to schedule the CT, they have [...] dye allergy unless this is done at [facility]. May be best to be done [...] team for authorization to schedule CT at [facility]. * Telephone Encounter - Natalie Marshall [...] before the scan if she goes to [facility] for labs and scan Thanks documented in this encounter Plan of Treatment Upcoming Encounters Date Type Specialty Care Team Description 10/04/2021 Office Visit Dermatology Marie Conrad MD [address] [place] [address] [place] [address] [phone] 10/16/2021 Office Visit Family Medicine Yariel Cardoza MD [address] [place] [address] [place] [address] [phone] Scheduled Orders Name Type Priority Associated Diagnoses [...] Documents on File Type Date Recorded 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
--- OUTSIDE RECORDS SUMMARY | 2023-06-07 07:52 | External Medical Summary | Summary of Care ---
Author Name Unknown Organization [place] [address] Care Team Providers Care Transportation Agent Name Role Phone Yariel Cardoza MD Primary Care Provide r Reason for Visit * Reason Onset Date Comments Appointment 07/27/2021 Colonoscoopy Encounter Details Date Type Department Care Team Description 07/27/2021 Telephone Family Medicine [address] [place] [phone] Hillary White PA-C [address] [place] [address] [place] [phone] Appointment (Colonoscoopy ) Allergies Active Allergy Reactions [...] DAY 90 Tab 1 03/17/2021 Active Nystatin 036427 UNIT/GM External Powder (Nystop)Indications :Candidal skin infection [...] OSA - 07/27/2021 4:07 PM EDT Jayla barrett scheduled for a colonoscopy for: Bloating [R14.0] Constipation, unspecified constipation type [K59.00] Intestinal obstruction, unspecified cause, unspecified whether partial or complete (HCC) [K56.609] Within 3 days (urgent) documented in this encounter Plan of Treatment Upcoming Encounters Date Type Specialty Care Team Description 10/04/2021 Office Visit Dermatology Marie Conrad MD [address] [facility] [place] [address] [phone] 10/16/2021 Office Visit Family Medicine Yariel Cardoza MD [address] [place] [address] [place] [address] Health Maintenance Due Date [...] on File Type Date Recorded Patient Director Of Field Coordination Expl 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
--- OUTSIDE RECORDS SUMMARY | 2023-06-07 07:53 | External Medical Summary | Summary of Care ---
Author Name Unknown Organization [place] [address] Care Team Providers Care Bread And Pastry Baker Name Role Phone Yariel Cardoza MD Primary Care Provide r Reason for Visit * Reason Comments [facility]: Transition of Care Encounter Details Date Type Department Care Team Description 07/07/2021 Home Visit [facility] [address] [place] [address] Corrina Layne RN [address] [facility] [place] [address] [phone] Allergies Active Allergy Reactions Severity Noted Date Comments Adhesive Tape 06/29/2003 Sensitive to Naproxen Hives 05/28/2015 Ivp Dye Hives 08/20/2000 Latex Other (Please comment) 01/05/2015 Contact rash Ibuprofen Rash 01/05/2015 documented as of this encounter (statuses as of 07/11/2021) Medications Medication Sig Dispensed Refills Start Date [...] 07/07/2021 Clopidogrel Bisulfate 75 MG Oral Tablet (pLAVix)Indicatio ns:Stenosis of right vertebral artery,TIA (transient ischemic attack) TAKE 1 TABLET BY MOUTH EVERY DAY 90 Tab 1 03/17/2021 Active Nystatin 156702 UNIT/GM External Powder (Nystop)Indicatio ns:Candidal skin infection [...] mouth 2 times a day. 0 Active Sertraline HCl 50 MG Oral Tablet (Zoloft) Take 1 Tab by mouth daily. 90 Tab 1 07/06/2021 Discontinued documented as of this encounter (statuses as of 07/11/2021) Active Problems Problem Noted Date History of [...] as of this encounter (statuses as of 07/11/2021) Resolved Problems Problem Noted Date Resolved Date [...] as of this encounter (statuses as of 07/11/2021) Immunizations Name Administration Dates Next Due COVID-19 mRNA, LNP-s, No Pre serve, 2-Dose Series (Digital Path) 12/16/2020,11/25/2020 Pneumococcal Conjugate Vacc, 13 Valent (Prevnar) [...] Sign Reading Time Taken Comments Blood Pressure 130/90 07/07/2021 9:03 AM EDT Pulse 80 07/07/2021 9:03 AM EDT Temperature 36.6 C (97.8 F) 07/07/2021 9:03 AM ED T Respiratory Rate 18 07/07/2021 9:03 AM EDT Oxygen Saturation 95% 07/07/2021 9:03 AM EDT Inhaled Oxygen Concentration - - Weight - - Height - - Body Mass Index - - documented in this encounter Progress Notes * Corrina Layne RN - 07/07/2021 8:48 AM EDT [facility] [employer] [employer] Monthly Visit Date: 07/07/2021 Time: 8:49 AM Name: Jayla Hayes : 1945 Current Concerns: Pt being seen for CHRISTIE 1 today s/p admission to [facility] 06/28-07/03/21 for large bowel obstruction. 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 Pt had colonoscopy w/ decompression. Pt continues to have abdominal bloating. Tearful during visit. Expressed that she is frustrated that she had been doing better with her IBS, but now is having more problems. Noted increased stress athome recently. Had stopped sertraline and amitriptyline recently as she was feeling good and didn'tthink that she needed them. Ordered sertraline from dc instructions. Message to pcp that pt would like to restart amitriptyline which seemed to help her IBS symptoms. See other TE. Written and verbal instructions provided to patient for GI symptoms including: Stay hydrated Small frequent meals Frequent walks Soft bland diet, BRAT For now no cheese, milk, yogurt, for now, chew food thoroughly, eat slow Massage belly Nees GI follow up. Wants to keep seeing Dr Devante DONG. Pt will call for appt. Has follow up with Lars 07/10/21. Physical Exam: BP 130/90 (BP Site: Left Arm, BP Position: Sitting, BP Cuff Size: Regular) | Pulse 80 | Temp 36.6 C (97.8 F) (Infrared ) | Resp 18 | SpO2 95% Pain 3/10 abdominal cramping Physical Exam Cardiovascular: Rate and Rhythm: Normal rate. Pulses: Normal pulses. Pulmonary: Effort: Pulmonary effort is normal. Breath sounds: Normal breath sounds. Abdominal: General: Bowel sounds are normal. There is distension. Palpations: Abdomen is soft. Musculoskeletal: Right lower leg: No edema. Left lower leg: No edema. Skin: General: Skin is warm and dry. Neurological: Mental Status: She is alert. Problems/Symptoms: Review of Systems Constitutional: Negative for chills and fever. HENT: Negative. Eyes: Negative. Respiratory: Positive for shortness of breath (at baseline). Negative for wheezing. Cardiovascular: Negative. Gastrointestinal: Positive for abdominal distention and diarrhea (loose stools). Negative for constipation, nausea and vomiting. Endocrine: Negative. Genitourinary: Negative. Allergic/Immunologic: Negative. Neurological: Negative. Hematological: Negative. Psychiatric/Behavioral: Positive for dysphoric mood. The patient is nervous/anxious. Medication Reconciliation: (See medication list) Does patient take medications as ordered: Yes Patient Well Being: PHQ2/9: No questionnaires available. Advanced Care Planning: Living Will. Reinforcement/Education: See instruction above. COPD: Pt instructed to: -Call with increased [...] medication regimen. Timing., Dosing. and Purspose. Treatment/Plan: Stay hydrated Small frequent meals Frequent walks Soft bland diet, BRAT For now no cheese, milk, yogurt, for now, chew food thoroughly, eat slow Massage belly Copd-continue nebs/inhalers and oxygen as ordered Get GI follow up appt Consider RD-diet reinforcement and SW referral for depression. Pt declines for now. Keep follow up with pcp rncm return in one week. Home Interventions Provided: Reinforced current Plan of Care, including self-management and medication regimen Updated Exacerbation Plan Patient's 'Red Flags': 1. Increased abd pain, bloating 2. N/v, no bm x 2 days 3. Increased sob/wheezing not relieved by nebulizer tx Patient Needs to Remember: Call [facility] at with any new or worsening health concerns or problems, red flag symptoms. Follow Up: Patient encouraged to call the intake phone number for all urgent but not emergent issues. Is the patient new to [employer] [facility] within the last 30 days? No, Assess appropriateness for upcoming telehealth visits. Cancel telehealth visits & schedule home visit with care swat team member(s)as indicated. Provider is in agreement with Plan of Care: Yes Scheduled to follow up with patient in 1 week. Corrina Layne RN 07/07/2021 8:49 AM documented in this encounter Plan of Treatment Upcoming Encounters Date Type Specialty Care Team Description 07/13/2021 Home Visit [facility] Corrina Layne, RN [address] [place] [address] [phone] 07/14/2021 Home Visit [facility] Morena Burton CRNP [address] [place] [address] [phone] 10/04/2021 Office Visit Dermatology Marie Conrad MD [address] [place] [address] [phone] 10/16/2021 Office Visit Family Medicine Yariel Cardoza MD [address] [place] [address] [place] [address] [phone] Health Maintenance Due Date Last Done Comments Zoster Vaccines (1 of 2) 1993 *ADVANCE DIRECTIVE NOT ON FILE 12/23/2015 *DEPRESSION SCREENING,ANNUAL FOR PTS 12 AND OVER 08/14/2020 *NEPHROLOGY REFERRAL DUE TO RESISTANT HTN 06/08/2021 Dexa Scan 08/17/2022 08/17/2015 DIABETES SCREEN EVERY 3 YRS-AGE 45 AND ABOVE 06/06/2024 06/06/2021, 12/26/2020, 12/26/2020, Additional history exists COLONOSCOPY-EVERY 3 YRS AGES 18-100 06/30/2024 06/30/2021, 06/15/2021, 03/26/2018, Additional history exists DTaP,Tdap,and Td Vaccines (2 - Td) 04/19/2028 04/19/2018, 05/03/2004, 05/03/2004 Pneumococcal Vaccine: 65+ Years Completed 03/28/2017, 09/21/2015 COVID-19 Vaccine Completed 12/16/2020, 11/25/2020 Influenza Vaccine (FLU shot) Completed , 08/12/2020, 07/10/2019, Additional history exists MENINGOCOCCAL (MENACTRA/MENVEO) Aged Out No longer eligible based on patient's age to complete this topic documented as of this encounter Implants Not on filedocumented as of this encounter Advance Directives Documents on File Type Date Recorded 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
--- OUTSIDE RECORDS SUMMARY | 2023-06-07 07:53 | External Medical Summary | Summary of Care ---
Author Name Unknown Organization [place] [address] Care Team Providers Care Retail Support Associate Name Role Phone Yariel Cardoza MD Primary Care Provide r Reason for Visit * Reason Comments Acute Encounter Details Date Type Department Care Team Description 07/26/2021 Office Visit Family Medicine [address] [place] [address] Hillary White PA-C [address] [place] [address] [place] [address] H/O small bowel obstruction*; SOB (shortness of breath); Cough; COPD, severe (HCC); Foul smelling urine; Nausea; Bloating Allergies Active Allergy Reactions Severity Noted Date Comments Adhesive Tape 06/29/2003 Sensitive to Naproxen Hives 05/28/2015 Ivp Dye Hives 08/20/2000 Latex Other (Please comment) 01/05/2015 Contact rash Ibuprofen Rash 01/05/2015 documented as of this encounter (statuses as of 07/26/2021) Medications Medication Sig Dispensed Refills Start Date [...] DAY 90 Tab 1 03/17/2021 Active Nystatin 979138 UNIT/GM External Powder (Nystop)Indications :Candidal skin infection [...] days. 20 Tab 0 07/26/2021 08/05/2021 Active documented as of this encounter (statuses as of 07/26/2021) Active Problems Problem Noted Date History of [...] as of this encounter (statuses as of 07/26/2021) Resolved Problems Problem Noted Date Resolved Date [...] as of this encounter (statuses as of 07/26/2021) Immunizations Name Administration Dates Next Due COVID-19 [...] 36 Quit: 10/07 Smokeless Tobacco: Never Used Tobacco Cessation:Counseling Given: No Comments:quit in 1995 Alcohol Use Drinks/Week oz/Week [...] Sign Reading Time Taken Comments Blood Pressure 140/78 07/26/2021 1:46 PM EDT Pulse 94 07/26/2021 1:46 PM EDT Temperature 37.2 C (99 F) 07/26/2021 1:46 PM EDT Respiratory Rate 18 07/26/2021 1:46 PM EDT Oxygen Saturation 90% 07/26/2021 1:46 PM EDT Inhaled Oxygen Concentration - - Weight 88 kg (194 lb) 07/26/2021 1:46 PM EDT Height - - Body Mass Index 36.66 06/20/2021 9:03 AM EDT documented in this encounter Progress Notes * Hillary White PA-C - 07/26/2021 1:58 PM EDT Subjective Jayla Hayes is a 75 year old female that presents for Acute HPI Nursing Notes: [facility]iz[facility]26[facility]21 1402 Signed Sinus congestion, headaches, coughing up yellow mucous. Has SOB but does have COPD. Was covid swabbed last month and it was negative. Denies fevers, exposure. Symptoms started before 06/28. HPI: Jayla Hayes is a 75 year old female presenting to the office today for sinus congestion ongoing and SOB. She had a terrible headaches yesterday. She is coughing up yellow mucus. She is still having diarrhea, but noone told her if she should stop Dulcolax. She has been on Miralax twice daily as well. Shehas had the diarrhea ever since she came home. She is going 4 times or more per day. She is very bloated still. She is going to be following up with Dr. Low in GI in September but not prior. She was tested for COVID on 06/13/21. That was negative. She has had continued severe nausea as well. She is not eating well and is drinking maybe 2 bottles of water per day. She has been avoiding coffee because it tears up her stomach. She was restarted on Amitriptyline to help her stomach pain. Her SaO2 today is 90%. She does wear O2 at night and she carries O2 with her as well. She continues to use Anoro. Objective BP 140/78 | Pulse 94 | Temp 37.2 C (99 F) (Tympanic) | Resp 18 | Wt 88 kg (194 lb) | SpO2 90% |BMI 36.66 kg/m | BSA 1.95 m Body mass index is 36.66 kg/m. BP Readings from Last 3 Encounters: 07/26/21 140/78 07/14/21 120/70 07/13/21 120/70 Wt Readings from Last 3 Encounters: 07/26/21 88 kg (194 lb) 07/10/21 87.1 kg (192 lb) 06/20/21 90.3 kg (199 lb) Physical Exam General: Well-Developed. Slightly ill appearing. No acute distress. HENT: Normocephalic. Atraumatic. Hearing normal. B/L TM intact, pearly barrett. No erythema/edema noted of B/L TM. No cerumen impaction. Eyes: EOMI. Sclera without erythema or icterus. No discharge. Pupils equal, round, reactive to light. Neck: No tracheal deviation. ROM intact. No stridor. No thyromegaly noted. Anterior chain adenopathy on the left- nontender. Non-tender. Cardiovascular: RRR. Normal S1/S2 noted. No murmur, rub or gallop appreciated. Pulmonary: No respiratory distress. No accessory muscle use. Decreased breath sounds throughout. Noobvious adventitious sounds but difficult to assess. Abdominal: Bowel sounds heard throughout hypoactive. Slightly distended. No tenderness throughout. Musculoskeletal: ROM intact and appears normal. No gait disturbance. Trace pitting edema B/L LE. Neurologic: Alert. Oriented x 3. Appears stated age. CN 2-12 grossly intact. Skin: Warm and dry. No apparent rashes or ecchymoses. No jaundice or pallor noted. Psych: Mood and affect normal. Assessment and plan H/O small bowel obstruction Diarrhea, bloating, and nausea. Recommended cutting back on Dulcolax. Continue Miralax. Repeat KUB today. May need to see GI sooner. - XR Abdomen 1 View SOB (shortness of breath) Check CXR today. - XR Chest 2 Views - Amoxicillin-Pot Clavulanate; Take 1 Tab by mouth 2 times a day for 10 days. Cough Start abx per below. Continue PRN O2 supplementation at home. - XR Chest 2 Views - Amoxicillin-Pot Clavulanate; Take 1 Tab by mouth 2 times a day for 10 days. COPD, severe (HCC) - XR Chest 2 Views - Amoxicillin-Pot Clavulanate; Take 1 Tab by mouth 2 times a day for 10 days. Foul smelling urine Check urine sample - Urinalysis, Reflex to Microscopic Exam; Future - Culture, Urine, Quantitative Nausea May need to add H2 harsh Bloating Follow up as needed or pending further eval. Total time today including reviewing chart before the visit, pertinent labs, imaging reports, face to face time, and documentation time was 45 minutes. The above was discussed and understanding was expressed. Hillary White PA-C documented in this encounter Nursing Notes * Katrina Alaniz CCMA - 07/26/2021 1:42 PM EDT Sinus congestion, headaches, coughing up yellow mucous. Has SOB but does have COPD. Was covid swabbed last month and it was negative. Denies fevers, exposure. Symptoms started before 06/28. documented in this encounter Plan of Treatment Upcoming Encounters Date Type Specialty Care Team Description 10/04/2021 Office Visit Dermatology Marie Conrad MD [address] [place], [place] [address] [address] [phone] 10/16/2021 Office Visit Family Medicine Yariel Cardoza MD [address] [place] [address] [place] [phone] Scheduled Orders Name Type Priority Associated Diagnoses Orde r Schedule XR CHEST 2 VIEWS Medical Imaging Routine SOB (shortness of breath) Cough COPD, severe (HCC) Ordered: 07/26/2021 XR ABDOMEN 1 VIEW Medical Imaging STAT H/O small bowel obstruction Ordered: 07/26/2021 URINALYSIS, REFLEX TO MICROSCOPIC Lab Routine Foul smelling urine Expected: 07/26/2021, Expires: 07/26/2022 CULTURE, URINE, QUANTITATIVE Lab Routine Foul smelling urine Ordered: 07/26/2021 Health Maintenance Due Date Last Done Comments [...] as of this encounter Visit Diagnoses Diagnosis H/O small bowel obstruction- Primary Personal history of other diseases of digestive system SOB (shortness of breath) Shortness of breath Cough COPD, severe (HCC) Chronic airway obstruction, not elsewhere classified Foul smelling urine Other nonspecific finding on examination of urine Nausea Nausea alone Bloating Flatulence, eructation, and gas pain documented in this encounter Advance Directives Documents on File Type Date Recorded 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
--- OUTSIDE RECORDS SUMMARY | 2023-06-07 07:53 | External Medical Summary | Summary of Care ---
Author Name Unknown Organization [place] [address] Care Team Providers Care Roll Grinder Name Role Phone Yariel Cardoza MD Primary Care Provide r Reason for Visit * Reason Onset Date Comments Advice 07/07/2021 Encounter Details Date Type Department Care Team Description 07/07/2021 Telephone [facility], [facility] [address] [place] [address] Corrina Layne RN [address] [place] [address] [phone] Advice Allergies Active Allergy Reactions Severity Noted Date Comments Adhesive Tape 06/29/2003 Sensitive to Naproxen Hives 05/28/2015 Ivp Dye Hives 08/20/2000 Latex Other (Please comment) 01/05/2015 Contact rash Ibuprofen Rash 01/05/2015 documented as of this encounter (statuses as of 07/09/2021) Medications Medication Sig Dispensed Refills Start Date [...] DAY 90 Tab 1 03/17/2021 Active Nystatin 189446 UNIT/GM External Powder (Nystop)Indicatio ns:Candidal skin infection [...] at bedtime. 90 Tab 1 07/07/2021 Active Sertraline HCl 50 MG Oral Tablet (Zoloft) Take 1 Tab by mouth daily. 90 Tab 1 07/06/2021 Discontinued documented as of this encounter (statuses as of 07/09/2021) Active Problems Problem Noted Date History of [...] as of this encounter (statuses as of 07/09/2021) Resolved Problems Problem Noted Date Resolved Date [...] as of this encounter (statuses as of 07/09/2021) Immunizations Name Administration Dates Next Due COVID-19 [...] Telephone Encounter - Corrina Layne RN - 07/09/2021 1:29 PM EDT 07/07/21: pt was notified per Dr Cardoza, OK to start amitriptyline, but stop sertraline and do not take both. Pt able to repeat back instruction correctly. * Telephone Encounter - Yariel Cardoza MD - 07/07/2021 1:00 PM EDT Sent to pharm but then she should not take the sertraline. Should not take both * Telephone Encounter - Corrina Layne RN - 07/07/2021 12:[address] Cardoza, I saw Jayla this morning s/p hospital admission for bowel obstruction. She was very tearful and frustrated that her GI symptoms have gotten so bad again. Previously she was on amitriptyline 25mg at which she says really helped calm her symptoms. It was stopped recently when she was trying to get rid of some of the pills that she was on, but she would like to restart med again. Are you ok with her restarting amitriptyline? Thanks, Sandrine documented in this encounter Plan of Treatment Upcoming Encounters Date Type Specialty Care Team Description 07/10/2021 Office Visit Family Medicine Yariel Cardoza MD [address] [place] [address] [place] [address] [phone] 07/13/2021 Home Visit [facility] Corrina Layne RN [address] [place] [address] [phone] 07/14/2021 Home Visit [facility] Morena Burton CRNP [address] [place] [address] [phone] 09/11/2021 Office Visit Gastroenterology Gianan Stevenson CRNP [address] [place] [address] [phone] 10/04/2021 Office Visit Dermatology Marie Conrad MD [address] [place], [place] [address] [address] [phone] Health Maintenance Due Date Last Done Comments [...] Documents on File Type Date Recorded 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
--- OUTSIDE RECORDS SUMMARY | 2023-06-07 07:53 | External Medical Summary | Summary of Care ---
Author Name Unknown Organization [place] [address] Care Team Providers Care Rug Scratcher Name Role Phone Yariel Cardoza MD Primary Care Provide r Reason for Visit * Reason Onset Date Comments Appointment 07/10/2021 [facility] GI/Case Encounter Details Date Type Department Care Team Description 07/10/2021 Telephone Family Medicine [address] [address] Yariel Cardoza MD [address] [place], [place] [address] [phone] Appointment [place] ) Allergies Active Allergy Reactions Severity Noted Date Comments Adhesive Tape 06/29/2003 Sensitive to Naproxen Hives 05/28/2015 Ivp Dye Hives 08/20/2000 Latex Other (Please comment) 01/05/2015 Contact rash Ibuprofen Rash 01/05/2015 documented as of this encounter (statuses as of 07/10/2021) Medications Medication Sig Dispensed Refills Start Date [...] DAY 90 Tab 1 03/17/2021 Active Nystatin 010031 UNIT/GM External Powder (Nystop)Indications: Candidal skin infection [...] as of this encounter (statuses as of 07/10/2021) Active Problems Problem Noted Date History of [...] as of this encounter (statuses as of 07/10/2021) Resolved Problems Problem Noted Date Resolved Date [...] as of this encounter (statuses as of 07/10/2021) Immunizations Name Administration Dates Next Due COVID-19 [...] Telephone Encounter - Zulema Land OSA - 07/10/2021 3:58 PM EDT 09/25/21 9:[address] Hermes Low, [facility],[address] Pt aware. Referral and p note faxed to [phone]. documented in this encounter Plan of Treatment Upcoming Encounters Date Type Specialty Care Team Description 07/13/2021 Home Visit [facility] Corrina Layne RN [address] [facility] [place] [address] 07/14/2021 Home Visit [facility] Morena Burton CRNP [address] [facility] [place] [address] [phone] 10/04/2021 Office Visit Dermatology Marie Conrad MD [address] [place] [address] [phone] 10/16/2021 Office Visit Family Medicine Yariel Cardoza MD [address] [place] [address] [place] [address] [phone] Health Maintenance Due Date Last Done Comments [...] Documents on File Type Date Recorded Patient Compensation Consultant Expl 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
--- OUTSIDE RECORDS SUMMARY | 2023-06-07 07:53 | External Medical Summary | Summary of Care ---
Author Name Unknown Organization [place] [address] Care Team Providers Care Community Coordinator Name Role Phone Yariel Cardoza MD Primary Care Provide r Reason for Visit * Reason Comments Outpatient Testing Encounter Details Date Type Department Care Team Description 07/26/2021 Laboratory Laboratory [address] [place] [id number] [place] [phone] Foul smelling urine Allergies Active Allergy Reactions Severity Noted Date [...] DAY 90 Tab 1 03/17/2021 Active Nystatin 970161 UNIT/GM External Powder (Nystop)Indications :Candidal skin infection [...] 10/04/2021 Office Visit Dermatology Marie Conrad MD [address] [place] [address] [place] [address] [phone] 10/16/2021 Office Visit Family Medicine Yariel Cardoza MD [address] [place] [address] [place] [phone] Pending Results Name Type Priority Associated Diagnoses Date /Time URINALYSIS, REFLEX TO MICROSCOPIC Lab Routine Foul smelling urine 07/26/2021 2:35 PM EDT Health Maintenance Due Date Last Done Comments [...] as of this encounter Visit Diagnoses Diagnosis Foul smelling urine Other nonspecific finding on examination of urine documented in this encounter Advance Directives Documents on File Type Date Recorded Patient Float Nurse Expl 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
--- OUTSIDE RECORDS SUMMARY | 2023-06-07 07:53 | External Medical Summary | Summary of Care ---
Author Name Unknown Organization [place] [address] Care Team Providers Care Lawnmower Repair Mechanic Name Role Phone Yariel Cardoza MD Primary Care Provide r Reason for Visit * Reason Comments Acute Encounter Details Date Type Department Care Team Description 07/26/2021 Office Visit Family Medicine [address] [place] [address] Hillary White PA-C [address] [place] [address] [place] [address] H/O small bowel obstruction*; [...] DAY 90 Tab 1 03/17/2021 Active Nystatin 107349 UNIT/GM External Powder (Nystop)Indications :Candidal skin infection [...] for Acute HPI Nursing Notes: [facility] 1402 Signed Sinus congestion, headaches, [...] 10/04/2021 Office Visit Dermatology Marie Conrad MD [address] [place], [place] [address] [address] [phone] 10/16/2021 Office Visit Family Medicine Yariel Cardoza MD [address] [place] [address] [place] [address] [phone] Pending Results Name Type Priority Associated Diagnoses Date /Time XR CHEST 2 VIEWS Medical Imaging Routine SOB (shortness of breath) Cough COPD, severe (HCC) 07/26/2021 2:39 PM EDT XR ABDOMEN 1 VIEW Medical Imaging STAT H/O small bowel obstruction 07/26/2021 2:39 PM EDT URINALYSIS, REFLEX TO MICROSCOPIC Lab Routine Foul smelling urine 07/26/2021 2:35 PM EDT CULTURE, URINE, QUANTITATIVE Lab Routine Foul smelling urine 07/26/2021 2:35 PM EDT Scheduled Orders Name Type Priority Associated Diagnoses Orde r Schedule URINALYSIS, REFLEX TO MICROSCOPIC Lab Routine Foul smelling urine Expected: 07/26/2021, Expires: 07/26/2022 Health Maintenance Due Date Last Done Comments [...] Documents on File Type Date Recorded Patient Inside Wirer Expl 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
--- OUTSIDE RECORDS SUMMARY | 2023-06-07 07:53 | External Medical Summary | Summary of Care ---
Author Name Unknown Organization [place] [address] Care Team Providers Care Attorney Lawyer Name Role Phone Yariel Cardoza MD Primary Care Provide r Reason for Referral * Evaluate & Treat - Unlimited Visits (Within 10 days (routine)) Status Reason Specialty Diagnoses / Procedures Referred By Contact Referred To Contact Authorized Specialty Services Required Gastroenterology Diagnoses Large bowel obstruction (HCC) Irritable bowel syndrome with both constipation and diarrhea Yariel Cardoza MD [address] [place] [address] [place] [address] Question Answer Referral Priority Within 10 days (routine) For what condition is the patient being referred? All Gastro Conditions Comments Dr. Low. Hosp with large bowel obstruction 06/28-07/03/21. Has ongoing bloating, pain, and diarrhea. Electronically signed by Yariel Cardoza MD at Reason for Visit * Reason Onset Date Comments Hospital Follow-Up Hospital Follow-Up 07/10/2021 Encounter Details Date Type Department Care Team Description 07/10/2021 Office Visit Family Medicine [address] [place] [phone] Yariel Cardoza MD [address] [place] [address] [place] [address] [phone] Hospital discharge follow-up*; Large bowel obstruction (HCC); Irritable bowel syndrome with both constipation and diarrhea; COPD, severe (HCC); HTN, goal below 140/90; Moderate episode of recurrent major depressive disorder (HCC); Severe obesity with body mass index (BMI) of 35.0 to 39.9 with serious comorbidity (HCC); History of TIA (transient ischemic attack) Allergies Active Allergy [...] DAY 90 Tab 1 03/17/2021 Active Nystatin 503506 UNIT/GM External Powder (Nystop)Indications: Candidal skin infection [...] mRNA, LNP-s, No Pre serve, 2-Dose Series (KidoZen) 12/16/2020,11/25/2020 Pneumococcal Conjugate Vacc, 13 Valent (Prevnar) [...] Reading Time Taken Comments Blood Pressure 134/80 07/10/2021 2:50 PM EDT Pulse 82 07/10/2021 2:50 PM EDT Temperature 36.9 C (98.4 F) 07/10/2021 2:50 PM ED T Respiratory Rate 18 07/10/2021 2:50 PM EDT Oxygen Saturation 93% 07/10/2021 2:50 PM EDT Inhaled Oxygen Concentration - - Weight 87.1 kg (192 lb) 07/10/2021 2:50 PM EDT Height - - Body Mass Index 36.28 06/20/2021 9:03 AM EDT documented in this encounter Patient Instructions * Patient Instructions* Yariel Cardoza MD - 07/10/2021 3:03 PM EDT Taking Medicine Safely Medicine is [...] street drugs, herbs, supplements, or even some uojw-kjy-xzlzqrw medicines can be harmful. Talk to your [...] to get rid of medicine: Call your [facility] or [facility]'s household trash and recycling service and ask if a drug take-back program is available in your community. Call your local pharmacy and ask the right way to get rid of the medicine. Go to http://www.fda.gov/ForConsumers/ConsumerUpdates/azj810738 to learn how to get rid of [...] brand-name medicine, unless their doctor says otherwise. 3019-2316 [facility], [address] [place] [address]. All rights reserved. This information is not [...] best to keep a sense of humor. [address] [address]. All rights reserved. This information is not [...] and pharmacist about all the prescription and ykiq-olm-wdkerua medicines you take.This includes vitamins and herbal remedies. Tell your doctor and pharmacist if you have any medical conditions or allergies to any medicine or food, or if you are or . Keep a list of all your medicines. Use the sample to the right as a guide for the type of information needed. [address] [address]. All rights reserved. This information is not intended as a substitute for professional medical care. Always follow your healthcare professional's instructions. documented in this encounter Progress Notes * Yariel Cardoza MD - 07/10/2021 3:03 PM EDT SUBJECTIVE: Jayla Hayes is a 75 year old female. Chief Complaint Patient presents with Hospital Follow-Up Hospital Follow-Up Recent Admission: Patient was recently admitted to [facility] on 06/28/21. The date of discharge was 07/03/21. Discharge report received and reviewed. HPI: Brief Clinical History Ms. Hayes is a 75 year old woman last seen in Family Medicine 2 weeks ago (06-20-21). She has h/o COPD, COPD, severe (HCC), depression, Moderate episode of recurrent major depressive disorder (HCC), morbid obesity, and Severe obesity with body mass index (BMI) of 35.0 to 39.9 with serious comorbidity (HCC). Admitted to [facility] 06/28/21-07/03/21 with large bowel obstruction. Was having abdominal pain and severebloating. Has had this issue on and off for many years. Had CT scan done that showed a large bowel obstruction. Was seen by GI and surgery. Underwent flex sigmoidoscopy 06/30/21 with successful decompression of the colon and decompression tube placed. General surgery felt it was a pseudo-obstructionand no surgical intervention recommended. Patient started having BMs and was tolerating diet so shewas discharged on dulcolax tabs every night and Miralax twice a day as per GI recommendation. Has been having diarrhea since discharge. Was on the bathroom for 1/2 hour this morning moving her bowels. Just started eating solid food yesterday. Had been on a liquid diet up until then. Is not drinking much water and states she knows she needs to drink more. Has home health coming in but not PT. Is also enrolled with [facility]. Vomited 3 nights ago. Is still bloated. Is passing gas. Abdomen making a lot of noises. Does take Bentyl for crampy abdominal pain. [facility] with [place]. [place] [facility] and would like to have thefollow-up with Dr. Low and not at [facility] as she is scheduled. Does not have an appointment withDr. Low. Had colonoscopy by Dr. Rocha 06/15/21 for screening that was ok but had poor prep. Has been having more trouble breathing lately. Is more off balance. Has a chronic cough but not worse than usual. Is using her Anora and also using Pulmicort and Duonebs. No cough. Had negative chestx-ray in the ED. 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 90 Tab 1 Bisacodyl 5 MG Oral Tablet Delayed Release (Dulcolax) Take 10 mg by mouth at bedtime. Naphazoline-Pheniramine 0.025-0.3 % Ophthalmic Solution (Naphcon-A) 1 Drop 3 times a day. Indications: 1-2 drops each eye as needed for eye irritation Polyethylene Glycol 3350 17 GM/SCOOP Oral Powder (MiraLax) Take 17 g by mouth 2 times a day. Atenolol 25 MG Oral Tablet (Tenormin) Take 1 Tab by mouth daily. 90 Tab 3 Losartan Potassium 50 MG Oral Tablet (Cozaar) Take 1 Tab by mouth daily. 30 Tab 5 Meclizine HCl 25 MG Oral Tablet (Antivert) TAKE 1 TABLET BY MOUTH ONCE EVERY 6 HOURS NEEDED FOR DIZZINESS/VERTIGO 10 Tab 0 Potassium Chloride ER 10 MEQ Oral Tablet Extended Release TAKE 1 TABLET BY MOUTH EVERY DAY 90 Tab 2 hydroCHLOROthiazide 25 MG Oral Tablet (Hydrodiuril) TAKE 1 TABLET BY MOUTH EVERY DAY 90 Tab 3 Clopidogrel Bisulfate 75 MG Oral Tablet (pLAVix) TAKE 1 TABLET BY MOUTH EVERY DAY 90 Tab 1 Nystatin 881582 UNIT/GM External Powder (Nystop) APPLY TOPICALLY TO AFFECTED AREA 3 TIMES A DAY. 45 g 1 Omeprazole 20 MG Oral Capsule Delayed Release (PriLOSEC) TAKE 2 CAPSULES BY MOUTH EVERY DAY (Patient taking differently: 2 times a day.) 180 Cap 1 Atorvastatin Calcium 40 MG Oral Tablet (Lipitor) Take 1 Tab by mouth daily. 90 Tab 1 Dicyclomine HCl 10 MG Oral Capsule Take 1 Cap by mouth 4 times a day as needed (abdominal pain,cramping). for abdominal pain 120 Cap 5 albuterol-ipratropium (DUONEB) 2.5-0.5 MG/3ML nebulizer solution INHALE 3 MLS VIA NEBULIZER EVERY 4 HOURS NEEDED FOR COUGH, SHORTNESS OF BREATH OR WHEEZING. 360 mL 1 Cholecalciferol 1000 units Capsule Take 2,000 Units by mouth daily. Dextromethorphan-guaiFENesin (CORICIDIN HBP CONGESTION/COUGH) 10-200 MG CAPS Take by mouth. Every 4-6 hours as needed for cough umeclidinium-vilanterol (ANORO ELLIPTA) 62.5-25 MCG/INH AEPB Inhale 1 Puff by mouth daily. VENTOLIN HFA 108 (90 Base) MCG/ACT inhaler INHALE 2 PUFFS BY MOUTH EVERY 4 HOURS NEEDED FOR WHEEZING. 1 Inhaler 5 budesonide (PULMICORT) 0.5 MG/2ML nebulizer solution INHALE ONE UNIT DOSE VIAL VIA NEBULIZER TWO TIMES A DAY. 3 oxygen GAS Use 2 L/min(Oxygen) as directed continuous. 1 Each 0 Current and discharge medications have been reconciled. Review of patient's allergies indicates: Allergen Reactions Adhesive Tape Sensitive to Aleve [Naproxen] Hives Ivp Dye Hives Latex Other (Please comment) Contact rash Motrin [Ibuprofen] Rash CBC Results: Results for orders placed or performed in visit on 12/26/20 CBC Result Value Ref Range WBC 6.82 4.00 - 10.80 K/uL RBC 5.14 3.85 - 5.15 M/uL HGB 14.6 12.0 - 15.3 g/dL HCT 49.1 (H) 36.0 - 45.2 % MCV 95.5 81.5 - 97.5 fL MCH 28.4 27.0 - 34.0 pg MCHC 29.7 (L) 32.0 - 36.0 g/dL RDW 14.4 11.5 - 15.5 % MPV 9.8 6.6 - 11.1 fL Nucleated RBC 0 <=0 /100 WBCs Plt 195 140 - 400 K/uL Basic Panel Results: Results for orders placed [...] 09/12/2017 10:17 AM ALT-OUTSIDE LAB 21 01/28/2015 Lab Results Component Value Date/Time TSH - [facility] 1.31 12/26/2020 08:53 AM TSH - [facility] 0.69 04/17/2017 10:53 AM TSH - [facility] 1.57 06/19/2016 03:29 PM TSH - [facility] 2.15 01/28/2002 09:06 AM Hemoglobin AIC Results: Lab Results Component Value Date/Time HEMOGLOBIN A1C - [facility] 6.0 (H) 12/26/2020 08:53 AM HEMOGLOBIN A1C - [facility] 5.7 03/19/2017 08:05 AM OBJECTIVE: BP 134/80 | Pulse 82 | Temp 36.9 C (98.4 F) (Tympanic) | Resp 18 | Wt 87.1 kg (192 lb) | SpO2 93% | BMI 36.28 kg/m | BSA 1.94 m Review Of Systems: Skin: pt denies, new or changing moles, pigmentation change, rash, scaling, itching, bruising, lumps or bumps, hair changes, nail changes Eyes: negative Ears/Nose/Throat: pt denies:, deafness, tinnitus, vertigo, frequent URI's, sinus trouble Respiratory: pt denies:, cough, pneumonia or bronchitis and +COPD and chronic SOB/cough Cardiovascular: pt denies:, palpitations, tachycardia, irregular heart beat, chest pain, exertionalchest pain or pressure, paroxysmal nocturnal dyspnea and lower extremity edema; +hypertension Gastrointestinal: +as per HPI Genitourinary: pt denies:, nocturia, dysuria and frequency Musculoskeletal: pt denies significant joint pain or stiffness Neurologic: pt denies:, headaches, syncope and seizures Psychiatric: +depression, anxiety, and insomnia Hematologic/Lymphatic/Immunologic: pt denies:, recurrent infections, immunodeficiency, anemia, bruising, bleeding disorder, fever, night sweats, chills and weight loss Endocrine: pt denies:, thyroid disorder, cold intolerance, heat intolerance and diabetes PHYSICAL EXAM: General: alert, no distress, well nourished and [...] chest wall tenderness, lungs clear to auscultation Abdomen: abdomen soft, no masses or organomegaly, no rebound or guarding and +mildly increased bowel sounds and abdomen somewhat firm to palpation but nontender Extremities: no edema, no clubbing, no cyanosis Neuro Exam: alert & oriented x 3 with fluent speech, no focal motor/sensory deficits ASSESSMENT: Hospital discharge follow-up (Primary) - DISCH MED RECON CUR MED LIS Large bowel obstruction (HCC) - GASTROENTEROLOGY REFERRAL OP Irritable bowel syndrome with both constipation and diarrhea - GASTROENTEROLOGY REFERRAL OP COPD, severe (HCC) HTN, goal below 140/90 Moderate episode of recurrent major depressive disorder (HCC) Severe obesity with body mass index (BMI) of 35.0 to 39.9 with serious comorbidity (HCC) History of TIA (transient ischemic attack) Follow-up: Return in about 3 months (around 10/10/2021). | Check-out note: Cancel GI appt 09/11/2021 PLAN: Continue present medication(s): Begin medication(s): Amitripytline 25 mg at bedtime for depression/insomnia/IBS pain Continue current antihypertensives and monitor BP. Continue Miralax twice a day and Dulcolax as recommended per GI. Diarrhea may improve with changingto solid diet. Referral(s) to: Gastroenterology for f/u of large bowel obstruction, ongoing bloating, and now withdiarrhea. Patient requests to see Dr. Low. Follow up in 3 month(s). Yariel Cardoza MD documented in this encounter Nursing Notes * Karlene Nichole LPN - 07/10/2021 2:47 PM EDT Hospital follow up [facility] Having a lot of diarrhea. Miralax & ducolox pills were added from hospital. documented in this encounter Plan of Treatment Upcoming Encounters Date Type Specialty Care Team Description 07/13/2021 Home Visit [facility] Corrina Layne, RN [address] [facility] [place] [address] [phone] 07/14/2021 Home Visit [facility] Morena Burton CRNP [address] [place] [address] [phone] 10/04/2021 Office Visit Dermatology Marie Conrad MD [address] [place] [address] [phone] 10/16/2021 Office Visit Family Medicine Yariel Cardoza MD [address] [place] [address] [place] [phone] Scheduled Referrals Name Type Priority Associated Diagnoses Orde r Schedule GASTROENTEROLOGY REFERRAL OP Referral Within 10 days (routine) Large bowel obstruction (HCC) Irritable bowel syndrome with both constipation and diarrhea Ordered: 07/10/2021 Health Maintenance Due Date Last Done Comments [...] Hospital discharge follow-up- Primary Other follow-up examination Large bowel obstruction (HCC) Unspecified intestinal obstruction Irritable bowel syndrome with both constipation and diarrhea COPD, severe (HCC) Chronic airway obstruction, not elsewhere classified HTN, goal below 140/90 Unspecified essential hypertension Moderate episode of recurrent major depressive disorder (HCC) Severe obesity with body mass index (BMI) of 35.0 to 39.9 with serious comorbidity (HCC) History of TIA (transient ischemic attack) Transient ischemic attack (TIA), and cerebral infarction without residual deficits documented in this encounter Advance Directives Documents on File Type Date Recorded Patient Fast Food Attendant Expl 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
--- OUTSIDE RECORDS SUMMARY | 2023-06-07 07:53 | External Medical Summary | Summary of Care ---
Author Name Unknown Organization [place] [address] Care Team Providers Care Supervisor Alteration Workroom Name Role Phone Yariel Cardoza MD Primary Care Provide r Encounter Details Date Type Department Care Team Description 07/13/2021 Home Visit [facility], [facility] [address] [place] [address] Corrina Layne, SELENE [address] [facility] [place] [address] [phone] Allergies Active Allergy Reactions Severity Noted Date Comments Adhesive Tape 06/29/2003 Sensitive to Naproxen Hives 05/28/2015 Ivp Dye Hives 08/20/2000 Latex Other (Please comment) 01/05/2015 Contact rash Ibuprofen Rash 01/05/2015 documented as of this encounter (statuses as of 07/13/2021) Medications Medication Sig Dispensed Refills Start Date [...] DAY 90 Tab 1 03/17/2021 Active Nystatin 866485 UNIT/GM External Powder (Nystop)Indications: Candidal skin infection [...] as of this encounter (statuses as of 07/13/2021) Active Problems Problem Noted Date History of [...] as of this encounter (statuses as of 07/13/2021) Resolved Problems Problem Noted Date Resolved Date [...] as of this encounter (statuses as of 07/13/2021) Immunizations Name Administration Dates Next Due COVID-19 mRNA, LNP-s, No Pre serve, 2-Dose Series ([employer]) 12/16/2020,11/25/2020 Pneumococcal Conjugate Vacc, 13 Valent (Prevnar) [...] Reading Time Taken Comments Blood Pressure 120/70 07/13/2021 12:05 PM EDT Pulse 76 07/13/2021 12:05 PM EDT Temperature 37.1 C (98.7 F) 07/13/2021 12:05 PM E DT Respiratory Rate 18 07/13/2021 12:05 PM EDT Oxygen Saturation 98% 07/13/2021 12:05 PM EDT Inhaled Oxygen Concentration - - Weight - - Height - - Body Mass Index - - documented in this encounter Progress Notes * Corrina Layne RN - 07/13/2021 11:50 AM EDT [facility] Train Driver CHRISTIE 2 Visit Date: 07/13/2021 Time: 11:51 AM Name: Jayla Hayes : 1945 Current concerns: Pt being seen for TOC2/ 1 week recheck today. Reports that GI symptoms are calming down. Abdomen still distended, but softer. Good bowel sounds. Having 3 bms daily that are loose. Denies black, tarry stools, denies blood in stool. Taking amitriptyline at HS. Stopped sertraline per pcp directions. Denies n/v. [facility] provider visit tomorrow. Problems/Symptoms: Review of Systems Constitutional: Negative for chills and fever. Respiratory: Negative for shortness of breath. Gastrointestinal: Positive for abdominal distention and abdominal pain. Negative for blood in stool, nausea and vomiting. Genitourinary: Negative for difficulty urinating. Neurological: Negative for dizziness and light-headedness. Physical Exam: Physical Exam Cardiovascular: Rate and [...] and oriented to person, place, and time. Home Interventions Provided: Reinforced current Plan of Care, including self-management and medication regimen Treatment plan: Stay hydrated Small frequent meals Frequent walks Soft bland diet, BRAT For now no cheese, milk, yogurt, for now, chew food thoroughly, eat slow Massage belly, heating pad on low Copd-continue nebs/inhalers and oxygen as ordered Get GI follow up appt . appt scheduled for Sep 2021 [facility] provider visit tomorrow. Corrina Layne RN 07/13/2021 11:51 AM documented in this encounter Plan of Treatment Upcoming Encounters Date Type Specialty Care Team Description 07/14/2021 Home Visit [facility] Morena Burton CRNP [address] [place] [address] [phone] 07/18/2021 Home Visit [facility] Corrina Layne RN [address] [place] [address] [phone] 10/04/2021 Office Visit Dermatology Marie Conrad MD [address] [place] [address] [phone] 10/16/2021 Office Visit Family Medicine Yariel Cardoza MD [address] [place] [address] [place] [address] [phone] Health Maintenance Due Date Last Done Comments [...] Documents on File Type Date Recorded 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
--- OUTSIDE RECORDS SUMMARY | 2023-06-07 07:53 | External Medical Summary | Summary of Care ---
Author Name Unknown Organization [place] [address] Care Team Providers Care Residential Coordinator Name Role Phone Yariel Cardoza MD Primary Care Provide r Reason for Visit * Reason Onset Date Comments [facility]: Maintenance 07/18/2021 Encounter Details Date Type Department Care Team Description 07/18/2021 Scheduled Telephone [facility], [facility] [address] [facility] [place] [address] Corrina Layne RN 132 [facility] [place] [address] [phone] Allergies Active Allergy Reactions Severity Noted Date Comments Adhesive Tape 06/29/2003 Sensitive to Naproxen Hives 05/28/2015 Ivp Dye Hives 08/20/2000 Latex Other (Please comment) 01/05/2015 Contact rash Ibuprofen Rash 01/05/2015 documented as of this encounter (statuses as of 07/18/2021) Medications Medication Sig Dispensed Refills Start Date [...] DAY 90 Tab 1 03/17/2021 Active Nystatin 818526 UNIT/GM External Powder (Nystop)Indications: Candidal skin infection [...] as of this encounter (statuses as of 07/18/2021) Active Problems Problem Noted Date History of [...] as of this encounter (statuses as of 07/18/2021) Resolved Problems Problem Noted Date Resolved Date [...] as of this encounter (statuses as of 07/18/2021) Immunizations Name Administration Dates Next Due COVID-19 [...] Telephone Encounter - Corrina Layne RN - 07/18/2021 8:50 AM EDT TOC4: called and spoke with patient who reports that she stopped the bisacodyl, but continues the miralax bid and stools are soft, but formed. No further diarrhea. Denies abdominal pain. Abdomen soft. Had some nausea yesterday after drinking coffee, but then symptoms resolved on their own. Avoidingcoffee now and this morning feels good. Reviewed treatment plan. Will schedule follow up phone callnext week for TOC5. Pt to call if any red flag symptoms, questions, concerns. Treatment Plan: Stay hydrated Small frequent meals Frequent walks Soft bland diet, BRAT For now no cheese, milk, yogurt, for now, chew food thoroughly, eat slow Massage belly, heating pad on low Copd-continue nebs/inhalers and oxygen as ordered GI follow up appt . appt scheduled for Sep 2021 -soonest available. documented in this encounter Plan of Treatment Upcoming Encounters Date Type Specialty Care Team Description 07/25/2021 Scheduled Telephone [facility] Corrina Layne RN [address] [facility] [place] [address] [phone] 10/04/2021 Office Visit Dermatology Marie Conrad MD [address] [place] [address] [place] [address] [phone] 10/16/2021 Office Visit Family Medicine Yariel Cardoza MD [address] [place] [address] [place] [address] Health Maintenance Due Date [...] Documents on File Type Date Recorded Patient Beater Boss Expl 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
--- OUTSIDE RECORDS SUMMARY | 2023-06-07 07:53 | External Medical Summary | Summary of Care ---
Author Name Unknown Organization [place] [address] Care Team Providers Care Stem Maker Name Role Phone Yariel Cardoza MD Primary Care Provide r Reason for Visit * Reason Comments [facility]: Maintenance Encounter Details Date Type Department Care Team Description 07/14/2021 Home Visit [facility], [facility] [address] [facility] [place] [address] Morena Burton CRNP 132 [facility] [place] [address] [phone] COPD, severe (HCC)*; Family history of bowel obstruction Allergies Active Allergy Reactions Severity Noted Date Comments Adhesive Tape 06/29/2003 Sensitive to Naproxen Hives 05/28/2015 Ivp Dye Hives 08/20/2000 Latex Other (Please comment) 01/05/2015 Contact rash Ibuprofen Rash 01/05/2015 documented as of this encounter (statuses as of 07/16/2021) Medications Medication Sig Dispensed Refills Start Date [...] DAY 90 Tab 1 03/17/2021 Active Nystatin [id number] UNIT/GM External Powder (Nystop)Indications: Candidal skin infection [...] as of this encounter (statuses as of 07/16/2021) Active Problems Problem Noted Date History of [...] as of this encounter (statuses as of 07/16/2021) Resolved Problems Problem Noted Date Resolved Date [...] as of this encounter (statuses as of 07/16/2021) Immunizations Name Administration Dates Next Due COVID-19 [...] Reading Time Taken Comments Blood Pressure 120/70 07/14/2021 10:30 AM EDT Pulse 76 07/14/2021 10:30 AM EDT Temperature - - Respiratory Rate 16 07/14/2021 10:30 AM EDT Oxygen Saturation 93% 07/14/2021 10:30 AM EDT Inhaled Oxygen Concentration - - Weight - - Height - - Body Mass Index - - documented in this encounter Progress Notes * Morena Burton CRNP - 07/14/2021 10:00 AM EDT [facility] Follow Up Provider Visit Date: 07/14/2021 Assessment/Plan: 1. COPD, severe (HCC) Stable today 2. Family history of bowel obstruction Advised importance of having soft BM daily or every other day. She will hold bisacodyl for now d/t diarrhea and continue miralax BID [facility] nurse to continue to monitor. Advance Care Planning Han Information: Advance Care Planning Aligning Care With What Matters Most: After reviewing the preceding "Discerning What Matters Most" conversation, the following decisions were discussed: Source: Content from [facility] Home Interventions Provided: Reinforced current Plan of Care, including self-management and medication regimen Follow up plan: Per plan Is this a Telemedicine Visit? No, this is an Home Visit. Reason for Visit: [facility] Follow Up Current Concerns: Jayla Hayes is a 75 year old female seen today for a [facility] follow up provider visit. Date of last known acute care visit: [facility] 06/28-07/03--had colonoscopy 06/15/21--internal hemorrhoids. Presented to ED with Abd pain and found to have large bowel obstruction-high grade--06/30 s/p colonoscopy with decompression with decompression tube placement--gen surgery consult, no surgery recommended. + HTN felt secondary to acute distress. D/c home on dulcolax q hs and miralax BID Saw pcp 07/10--advised to continue miralax Today's concerns are: continues to have loose stools, at least 3 a day. Some abd cramping but improved. Uses bentyl. Has upcoming appt with GI in Sep. No N/V. Wearing depend because she is afraid shewill not make it to bathroom d/t fecal incontinence. ROS: Review of Systems Constitutional: Negative for activity change, appetite change, chills, fatigue and fever. Respiratory: Positive for shortness of breath (chronic). Negative for cough and wheezing. Cardiovascular: Negative for chest pain and leg swelling. Gastrointestinal: Positive for diarrhea. Negative for constipation and nausea. Genitourinary: Negative for decreased urine volume. Neurological: Negative for dizziness and light-headedness. Physical Exam: BP 120/70 | Pulse 76 | Resp 16 | SpO2 93% Last Weights: Wt Readings from Last 3 Encounters: 07/10/21 87.1 kg (192 lb) 06/20/21 90.3 kg (199 lb) 06/06/21 90.7 kg (200 lb) Last BPs: BP Readings from Last 4 Encounters: 07/14/21 120/70 10/07/21 120/70 07/10/21 134/80 07/07/21 130/90 Physical Exam Constitutional: General: She is not in acute distress. Appearance: She is obese. She is not toxic-appearing. HENT: Head: Normocephalic. Cardiovascular: Rate and Rhythm: Normal rate and regular rhythm. Heart sounds: No murmur. Pulmonary: Effort: Pulmonary effort is normal. No respiratory distress. Breath sounds: Normal breath sounds. Abdominal: General: Bowel sounds are normal. Palpations: Abdomen is soft. Musculoskeletal: Right lower leg: No edema. Left lower leg: No edema. Skin: General: Skin is warm and dry. Neurological: General: No focal deficit present. Mental Status: She is alert and oriented to person, place, and time. Psychiatric: Mood and Affect: Mood normal. Behavior: Behavior normal. Thought Content: Thought content normal. Judgment: Judgment normal. Mobility Evaluation: [facility] Assessment: [facility] ([facility]) Fall Risk Assessment Tool Age 65+: Yes (07/14/21999) Diagnosis (3 or more co-existing): Yes (07/14/21999) Prior history of falls within 3 months: No (07/14/21999) Incontinence: Yes (07/14/21999) Visual impairment: Yes (07/14/21999) Impaired functional mobility: No (07/14/21999) Environmental hazards: Yes (07/14/21999) Poly Pharmacy (4 or more prescriptions - any type): Yes (07/14/21999) Pain affecting level of function: No (07/14/21999) Cognitive impairment: No (07/14/21999) Score - a score of 4 or more is considered at risk for fallin (07/14/21999) Assistive Devices Used in the Home: Walker (standard or rollator) Recent Falls: Falls in the last 6 months: No Chronic Condition Review: HEMATOLOGY/ANEMIA Lab Results Component Value Date/Time WBC AUTO - [facility] 7.98 06/06/2021 10:10 AM WBC AUTO - [facility] 7.36 05/06/2020 10:15 AM HGB - [facility] 14.9 06/06/2021 10:10 AM HGB - [facility] 14.6 12/26/2020 08:53 AM HGB - [facility] 14.3 05/06/2020 10:15 AM HGB - [facility] 13.4 08/18/2019 11:10 AM HGB - [facility] 14.4 09/12/2017 10:17 AM VITAMIN B12 - [facility] 344 06/06/2021 10:10 AM VITAMIN B12 - [facility] 317 09/12/2017 10:17 AM CHEMISTRY/LIVER Lab Results Component Value Date/Time SODIUM - [facility] 143 06/06/2021 10:10 AM SODIUM - [facility] 142 05/06/2020 10:15 AM POTASSIUM - [facility] 4.3 06/06/2021 10:10 AM POTASSIUM - [facility] 4.4 12/26/2020 08:53 AM POTASSIUM - [facility] 4.1 05/06/2020 10:15 AM POTASSIUM - [facility] 3.7 08/18/2019 11:10 AM POTASSIUM - [facility] 3.5 05/12/2019 03:02 PM POTASSIUM-OUTSIDE LAB 5.2 (A) 09/22/2020 POTASSIUM-OUTSIDE LAB 4.2 09/20/2020 POTASSIUM-OUTSIDE LAB 3.0 (A) 08/09/2019 MAGNESIUM - [facility] 2.0 05/12/2019 03:02 PM CO2 - [facility] 29 06/06/2021 10:10 AM CO2 - [facility] 27 05/06/2020 10:15 AM ALBUMIN - [facility] 4.2 05/06/2020 10:15 AM AST - [facility] 22 05/06/2020 10:15 AM ALT - [facility] 22 05/06/2020 10:15 AM ALT-OUTSIDE LAB 21 01/28/2015 BILIRUBIN, DIRECT - [facility] 0.1 01/28/2002 09:06 AM BILIRUBIN, TOTAL - [facility] 0.5 05/06/2020 10:15 AM BILIRUBIN, URINE - [facility] neg 09/27/2016 RENAL Lab Results Component Value Date/Time BUN - [facility] 15 06/06/2021 10:10 AM BUN - [facility] 17 12/26/2020 08:53 AM BUN - [facility] 19 05/06/2020 10:15 AM BUN - [facility] 14 08/18/2019 11:10 AM BUN - [facility] 15 05/12/2019 03:02 PM CREATININE - [facility] 0.8 06/06/2021 10:10 AM CREATININE - [facility] 0.9 12/26/2020 08:53 AM CREATININE - [facility] 0.9 05/06/2020 10:15 AM CREATININE - [facility] 0.8 08/18/2019 11:10 AM CREATININE - [facility] 0.9 05/12/2019 03:02 PM CREATININE, RANDOM URINE - [facility] 168 03/19/2017 08:05 AM CREATININE, RANDOM URINE - [facility] 153 02/18/2016 08:26 AM CREATININE-OUTSIDE LAB 0.87 09/22/2020 CREATININE-OUTSIDE LAB 0.79 09/20/2020 CREATININE-OUTSIDE LAB 0.93 08/09/2019 ESTIMATED GLOMERULAR FILTRATION RATE - [facility] 73.6 06/06/2021 10:10 AM ESTIMATED GLOMERULAR FILTRATION RATE - [facility] 61.9 12/26/2020 08:53 AM ESTIMATED GLOMERULAR FILTRATION RATE - [facility] >60.0 05/06/2020 10:15 AM ESTIMATED GLOMERULAR FILTRATION RATE - [facility] >60.0 08/18/2019 11:10 AM ESTIMATED GLOMERULAR FILTRATION RATE - [facility] >60.0 05/12/2019 03:02 PM ESTIMATED GLOMERULAR FILTRATION RATE - [facility] >60.0 05/03/2004 09:02 AM PROTEIN - [facility] 6.7 05/06/2020 10:15 AM PROTEIN, RANDOM URINE - [facility] 13 03/19/2017 08:05 AM PROTEIN, UA-OUTSIDE LAB TRACE (A) 09/18/2020 PROTEIN, URINE - [facility] neg 09/27/2016 PROTEIN/CREAT RATIO 77 03/19/2017 08:05 AM CARDIAC Lab Results Component Value Date/Time PRO BNP 180 03/19/2017 09:11 AM LEFT VENTRICULAR EJECTION FRACTION 60 05/21/2019 08:43 AM Results for orders placed or performed in [...] (Direct Measure) 70 0 - 129 mg/dL ENDOCRINE Lab Results Component Value Date/Time GLUCOSE - [facility] 93 06/06/2021 10:10 AM GLUCOSE - [facility] 96 05/06/2020 10:15 AM GLUCOSE, URINE - [facility] neg 09/27/2016 GLUCOSE-OUTSIDE LAB 120 (A) 09/22/2020 TSH - [facility] 1.31 12/26/2020 08:53 AM TSH - [facility] 0.69 04/17/2017 10:53 AM Lab Results Component Value Date/Time HEMOGLOBIN A1C - [facility] 6.0 (H) 12/26/2020 08:53 AM HEMOGLOBIN A1C - [facility] 5.7 03/19/2017 08:05 AM ID No results found for: URINE CULTURE COPD FOLLOW UP Typical COPD symptoms: Increased dyspnea on exertion ("I can't walk to the kitchen or up the stairs without coughing and wheezing", "My chest feels tight any time I move") Increased shortness of breath at rest ("I struggle to breathe even when watching TV", "I have to wear or turn up my oxygen just when I'm sitting on the couch") Current treatment regimen: Class A - SEE-JAYLAN Combination Inhaler Class D - LABA-LAMA Combination Inhaler Exacerbation Mgt: No exacerbations in the past 3 months Rescue Kit in [address] in Medication List: No. Used rescue kit in the past month: No Required IM or IV steroids (Solumedrol) since last visit: No Medication Review (All appropriate medication changes made to Medication List): Dose adjustment(s) made: Pt will hold bisacodyl d/t diarrhea at this time. SDoH: NO SOCIAL DETERMINATE NEEDS IDENTIFIED SAMIR Mckenzie 8:40 AM *Communication sent to PCP (via [facility] if [facility]), [facility]/Population Health Care Team members,relevant Specialty Care Physicians* documented in this encounter Plan of Treatment Upcoming Encounters Date Type Specialty Care Team Description 07/18/2021 Home Visit [facility] Corrina Layne, SELENE [address] [place] [address] [phone] 10/04/2021 Office Visit Dermatology Marie Conrad MD [address] [facility] [place] [address] [phone] 10/16/2021 Office Visit Family Medicine Yariel Cardoza MD [address] [place] [address] [place] [address] [phone] Health Maintenance Due Date Last Done Comments [...] Primary Chronic airway obstruction, not elsewhere classified Family history of bowel obstruction Family history of other digestive disorders documented in this encounter Advance Directives Documents on File Type Date Recorded Patient Clinical Project Manager Expl 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
--- OUTSIDE RECORDS SUMMARY | 2023-06-07 07:54 | External Medical Summary | Summary of Care ---
Author Name Unknown Organization [place] [address] Care Team Providers Care Tube Coremaker Name Role Phone Yariel Cardoza MD Primary Care Provide r Reason for Visit * Reason Onset Date Comments [facility]: Maintenance 07/05/2021 Encounter Details Date Type Department Care Team Description 07/05/2021 Telephone [facility], [facility] [address] [facility] [place] [address] [facility], Nurse [facility] [address] [facility] [place] [address] [phone] [facility]: Maintenance Allergies Active Allergy Reactions Severity Noted Date Comments Adhesive Tape 06/29/2003 Sensitive to Naproxen Hives 05/28/2015 Ivp Dye Hives 08/20/2000 Latex Other (Please comment) 01/05/2015 Contact rash Ibuprofen Rash 01/05/2015 documented as of this encounter (statuses as of 07/05/2021) Medications Medication Sig Dispensed Refills Start Date [...] 04/11/2020 Active Dicyclomine HCl 10 MG Oral CapsuleIndications: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 90 Tab 3 06/20/2021 Active Losartan Potassium 50 MG Oral Tablet (Cozaar)Indications:H TN, goal below 140/90 Take 1 Tab by mouth daily. 30 Tab 5 06/20/2021 Active documented as of this encounter (statuses as of 07/05/2021) Active Problems Problem Noted Date History of [...] as of this encounter (statuses as of 07/05/2021) Resolved Problems Problem Noted Date Resolved Date [...] as of this encounter (statuses as of 07/05/2021) Immunizations Name Administration Dates Next Due COVID-19 mRNA, LNP-s, No Pre serve, 2-Dose Series ([email or web address]) 12/16/2020,11/25/2020 Pneumococcal Conjugate Vacc, 13 Valent (Prevnar) [...] Telephone Encounter - Tara Stevens LPN - 07/05/2021 9:08 AM EDT Patient admitted to [facility] 06/28-07/03 Discharged to home RRS 6% TT sent to [facility] residential recycle driver to schedule TOCs documented in this encounter Plan of Treatment Upcoming Encounters Date Type Specialty Care Team Description 07/10/2021 Office Visit Family Medicine Josie Ryan PA-C [address] [place] [address] [place] [address] [phone] 07/11/2021 Office Visit Family Medicine Josie Ryan PA-C [address] [place] [address] [place] [address] [phone] 07/13/2021 Home Visit [facility] Corrina Layne RN [address] [place] [address] [phone] 09/11/2021 Office Visit Gastroenterology Gianna Stevenson CRNP [address] [place] [address] [phone] 10/04/2021 Office Visit Dermatology Marie Conrad MD [address] [place] [address] [phone] Health Maintenance Due Date Last Done Comments [...] on File Type Date Recorded Patient Mold Maker Plaster Expl 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
--- OUTSIDE RECORDS SUMMARY | 2023-06-07 07:54 | External Medical Summary | Summary of Care ---
Author Name Unknown Organization [place] [address] Care Team Providers Care Textile Coating Machine Operator Name Role Phone Yariel Cardoza MD Primary Care Provide r Reason for Visit * Reason Onset Date Comments Medication Question 07/06/2021 Encounter Details Date Type Department Care Team Description 07/06/[address] [place] [address] Yariel Cardoza MD [address] [place] [address] [place] [id number] Medication Question Allergies Active Allergy Reactions Severity Noted Date Comments Adhesive Tape 06/29/2003 Sensitive to Naproxen Hives 05/28/2015 Ivp Dye Hives 08/20/2000 Latex Other (Please comment) 01/05/2015 Contact rash Ibuprofen Rash 01/05/2015 documented as of this encounter (statuses as of 07/06/2021) Medications Medication Sig Dispensed Refills Start Date [...] DAY 90 Tab 1 03/17/2021 Active Nystatin 619757 UNIT/GM External Powder (Nystop)Indications:C andidal skin infection [...] mouth daily. 30 Tab 5 06/20/2021 Active Sertraline HCl 50 MG Oral Tablet (Zoloft) Take 1 Tab by mouth daily. 90 Tab 1 07/06/2021 Active documented as of this encounter (statuses as of 07/06/2021) Active Problems Problem Noted Date History of [...] as of this encounter (statuses as of 07/06/2021) Resolved Problems Problem Noted Date Resolved Date [...] as of this encounter (statuses as of 07/06/2021) Immunizations Name Administration Dates Next Due COVID-19 mRNA, LNP-s, No Pre serve, 2-Dose Series ([employer]ymers) 12/16/2020,11/25/2020 Pneumococcal Conjugate Vacc, 13 Valent (Prevnar) [...] Telephone Encounter - Елена Brooks RN - 07/06/2021 11:07 AM EDT Unable to get home number to work, and no answer, no voice mail on cell phone * Telephone Encounter - Yariel Cardoza MD - 07/06/2021 9:17 AM EDT It was not discontinued in hospital. Someone took it off her med list at an office visit in March. Sent refill. * Telephone Encounter - Mendy Blake LPN - 07/06/2021 8:11 AM EDT Pt calling and states that when she went to the pharmacy for a refill of Sertraline, the pharmacy would not fill it. Medication has since been D/C'd Last time pt took the medication was before she went into the hospital on 06.28.21. Would like to continue taking this medication if she is supposed to. Also requesting a hosp D/C appt for hospital D/C 07.03.21. Appt scheduled with PCP 07.10.21. Please advise. documented in this encounter Plan of Treatment Upcoming Encounters Date Type Specialty Care Team Description 07/07/2021 [facility] Visit [facility] Corrina Layne RN [address] [place] [address] [phone] 07/10/2021 Office Visit Family Medicine Yariel Cardoza MD [address] [place] [address] [place] [address] [phone] 07/13/2021 Home Visit [facility] Corrina Layne RN [address] [place] [address] [phone] 07/14/2021 Home Visit [facility] Morena Burton CRNP [address] [place] [address] [phone] 09/11/2021 Office Visit Gastroenterology Gianna Stevenson CRNP [address] [place] [address] [phone] 10/04/2021 [facility] [address] [place] [address], [place] [address] [phone] Health Maintenance Due Date Last Done Comments [...] Documents on File Type Date Recorded Patient Global Position System Technician Expl 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
--- OUTSIDE RECORDS SUMMARY | 2023-06-07 07:54 | External Medical Summary | Summary of Care ---
Author Name Unknown Organization [place] [address] Care Team Providers Care Plastics Sheet Finishing Press Operator Name Role Phone Yariel Cardoza MD Primary Care Provide r Encounter Details Date Type Department Care Team Description 06/30/2021 Orders Only Gastroenterology, [facility] [address] [place] [address] Jennie Garcia MD 132 [facility] [place] [address] Allergies Active Allergy Reactions Severity Noted Date Comments Adhesive Tape 06/29/2003 Sensitive to Naproxen Hives 05/28/2015 Ivp Dye Hives 08/20/2000 Latex Other (Please comment) 01/05/2015 Contact rash Ibuprofen Rash 01/05/2015 documented as of this encounter (statuses as of 06/30/2021) Medications Medication Sig Dispensed Refills Start Date [...] DAY 90 Tab 1 03/17/2021 Active Nystatin 364326 UNIT/GM External Powder (Nystop)Indications:C andidal skin infection [...] as of this encounter (statuses as of 06/30/2021) Active Problems Problem Noted Date History of [...] as of this encounter (statuses as of 06/30/2021) Resolved Problems Problem Noted Date Resolved Date [...] as of this encounter (statuses as of 06/30/2021) Immunizations Name Administration Dates Next Due COVID-19 mRNA, LNP-s, No Pre serve, 2-Dose Series (FluGen) 12/16/2020,11/25/2020 Pneumococcal Conjugate Vacc, 13 Valent (Prevnar) [...] Encounters Date Type Specialty Care Team Description 07/11/2021 Office Visit Family Medicine Josie Ryan PA-C [address] [place] [address] [place] [address] [phone] 07/13/2021 Home Visit [facility] Corrina Layne RN 132 [facility] [place] [address] 10/04/2021 Office Visit Dermatology Marie [place] MD 200 [facility] [place] [address] [phone] Health Maintenance Due Date Last Done Comments Zoster Vaccines (1 of 2) 1993 *ADVANCE DIRECTIVE NOT ON FILE 12/23/2015 *DEPRESSION SCREENING,ANNUAL FOR PTS 12 AND OVER 08/14/2020 *NEPHROLOGY REFERRAL DUE TO RESISTANT HTN 06/08/2021 Dexa Scan 08/17/2022 08/17/2015 DIABETES SCREEN EVERY 3 YRS-AGE 45 AND ABOVE 06/06/2024 06/06/2021, 12/26/2020, 12/26/2020, Additional history exists COLONOSCOPY-EVERY 3 YRS AGES 18-100 06/15/2024 06/30/2021, 06/15/2021, 03/26/2018, Additional history exists DTaP,Tdap,and [...] Procedure Name Priority Date/Time Associated Diagnosis Comments FLEX SIG 06/30/2021 documented in this encounter Results * FLEX SIG (06/30/2021) Specimen Narrative Performed At documented in this encounter Advance Directives Documents on File Type Date Recorded Patient Art Installer Expl 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
--- OUTSIDE RECORDS SUMMARY | 2023-06-07 07:54 | External Medical Summary | Summary of Care ---
Author Name Unknown Organization [place] [address] Care Team Providers Care Senior Grant Writer Name Role Phone Yariel Cardoza MD Primary Care Provide r Encounter Details Date Type Department Care Team Description 06/28/2021 Scan Encounter Unspecified Department <No scans attached> Allergies Active [...] DAY 90 Tab 1 03/17/2021 Active Nystatin 083045 UNIT/GM External Powder (Nystop)Indications:C andidal skin infection [...] mRNA, LNP-s, No Pre serve, 2-Dose Series (Rabixo) 12/16/2020,11/25/2020 Pneumococcal Conjugate Vacc, 13 Valent (Prevnar) [...] Office Visit Family Medicine Josie Ryan PA-C [address] [place] [address] [place] [address] [phone] 07/13/2021 Home Visit [facility] Corrina Layne RN 132 [facility] [place] [address] 10/04/2021 Office Visit Dermatology Marie [place] MD 200 [facility] [place] [address] [phone] Health Maintenance Due Date Last Done Comments Zoster Vaccines (1 of 2) 1993 *ADVANCE DIRECTIVE NOT ON FILE 12/23/2015 *DEPRESSION SCREENING,ANNUAL FOR PTS 12 AND OVER 08/14/2020 *NEPHROLOGY REFERRAL DUE TO RESISTANT HTN 06/08/2021 Dexa Scan 08/17/2022 08/17/2015 DIABETES SCREEN EVERY 3 YRS-AGE 45 AND ABOVE 06/06/2024 06/06/2021, 12/26/2020, 12/26/2020, Additional history exists COLONOSCOPY-EVERY 3 YRS AGES 18-100 06/15/2024 06/15/2021, 03/26/2018, 03/08/2015 DTaP,Tdap,and Td Vaccines (2 - Td) 04/19/2028 [...] Documents on File Type Date Recorded Patient News Writer Expl 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
--- OUTSIDE RECORDS SUMMARY | 2023-06-07 07:54 | External Medical Summary | Summary of Care ---
Author Name Unknown Organization [place] [address] Care Team Providers Care Bone Crusher Name Role Phone Yariel Cradoza MD Primary [...] DAY 90 Tab 1 03/17/2021 Active Nystatin 356576 UNIT/GM External Powder (Nystop)Indications:C andidal skin infection [...] mRNA, LNP-s, No Pre serve, 2-Dose Series (Malhar) 12/16/2020,11/25/2020 Pneumococcal Conjugate Vacc, 13 Valent (Prevnar) [...] Office Visit Family Medicine Josie Ryan PA-C [address] [place] [address] [place] [address] [phone] 07/13/2021 Home Visit [facility] Corrina Layne RN 132 [facility] [place] [address] 10/04/2021 Office Visit Dermatology Marie [place] MD 200 [facility] [place] [address] [phone] Health Maintenance Due Date Last Done Comments [...] Documents on File Type Date Recorded Patient Skip Miner Expl 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
--- OUTSIDE RECORDS SUMMARY | 2023-06-07 07:54 | External Medical Summary | Summary of Care ---
Author Name Unknown Organization [place] [address] Care Team Providers Care Rn Case Management Name Role Phone Yariel Cardoza MD Primary Care Provide r Encounter Details Date Type Department Care Team Description 06/30/2021 Result Scan Unspecified Department <No scans attached> [...] DAY 90 Tab 1 03/17/2021 Active Nystatin 206815 UNIT/GM External Powder (Nystop)Indications:C andidal skin infection [...] No Pre serve, 2-Dose Series (Loop App) 12/16/2020,11/25/2020 Pneumococcal Conjugate Vacc, 13 Valent (Prevnar) [...] Office Visit Family Medicine Josie Ryan PA-C [address] [place] [address] [place] [address] [phone] 07/13/2021 Home Visit [facility] Corrina Layne RN 132 [facility] [place] [address] 10/04/2021 Office Visit Dermatology Marie [place] MD 200 [facility] [place] [address] [phone] Health Maintenance Due Date Last Done Comments [...] Date/Time Associated Diagnosis Comments RADIOLOGY SCANNED RESULT 06/30/2021 documented in this encounter Results * RADIOLOGY SCANNED RESULT (06/30/2021) Specimen Narrative Performed At documented in this encounter Advance Directives Documents on File Type Date Recorded Patient Roving Winder Expl 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
--- OUTSIDE RECORDS SUMMARY | 2023-06-07 07:54 | External Medical Summary | Summary of Care ---
Author Name Unknown Organization [place] [address] Care Team Providers Care Swing Driver Name Role Phone Yariel Cardoza MD Primary Care Provide r Reason for Visit * Reason Onset Date Comments [facility]: Maintenance 07/08/2021 Encounter Details Date Type Department Care Team Description 07/08/2021 Scheduled Telephone [facility], [facility] 132 [facility] [place] [address] [facility], Nurse [facility] 132 [place] [address] [phone] Allergies Active Allergy Reactions Severity Noted Date Comments Adhesive Tape 06/29/2003 Sensitive to Naproxen Hives 05/28/2015 Ivp Dye Hives 08/20/2000 Latex Other (Please comment) 01/05/2015 Contact rash Ibuprofen Rash 01/05/2015 documented as of this encounter (statuses as of 07/08/2021) Medications Medication Sig Dispensed Refills Start Date [...] DAY 90 Tab 1 03/17/2021 Active Nystatin 752272 UNIT/GM External Powder (Nystop)Indications: Candidal skin infection [...] as of this encounter (statuses as of 07/08/2021) Active Problems Problem Noted Date History of [...] as of this encounter (statuses as of 07/08/2021) Resolved Problems Problem Noted Date Resolved Date [...] as of this encounter (statuses as of 07/08/2021) Immunizations Name Administration Dates Next Due COVID-19 [...] encounter Miscellaneous Notes * Telephone Encounter - Teagan Marquez RN - 07/08/2021 2:50 PM EDT Phone call placed to pt to follow up with abdominal pain and bloating. Pt was recently admitted to the hospital for bowel obstruction. I spoke to the patient and she states she had 2 episodes of vomiting yesterday following supper. She is unsure if it was something that she had eaten. Pt is drinking adequate fluids but only eating small amts. I reinforced instructions as given by CM yesterday to eat a [place] diet, avoid dairy products and take freq walks. Pt denies any further vomiting. Bowels are moving, diarrhea. This is unchanged since discharge. Pt denies any fever/chills. BP this am prior to medication was 140/88. Pt denies any acute needs or concerns. Pt is scheduled for a call tomorrow and PCP appt on Saturday. documented in this encounter Plan of Treatment Upcoming Encounters Date Type Specialty Care Team Description 07/09/2021 Scheduled Telephone [facility] [place], Nurse [facility] [address] [place] [address] [phone] 07/10/2021 Office Visit Family Medicine Yariel Cardoza MD [address] [place] [address] [place] [address] [phone] 07/13/2021 Home Visit [facility] Corrina Layne RN 132 [facility] [place] [address] [phone] 07/14/2021 Home Visit [facility] Morena Burton CRNP 132 [facility] [place] [address] [phone] 09/11/2021 Office Visit [facility]enterology [facility]na Stevenson [facility] [place] [address] [phone] 10/04/2021 Office Visit Dermatology Marie [place] MD [address] [place] [address], [place] [address] [phone] Health Maintenance Due Date Last Done Comments [...] Documents on File Type Date Recorded Patient Medical Staff Manager Expl 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
--- OUTSIDE RECORDS SUMMARY | 2023-06-07 07:54 | External Medical Summary | Summary of Care ---
Author Name Unknown Organization [place] [address] Care Team Providers Care Tissue Rewinder Name Role Phone Yariel Cardoza MD Primary Care Provide r Reason for Visit * Reason Onset Date Comments [facility]: Maintenance 07/09/2021 Encounter Details Date Type Department Care Team Description 07/09/2021 Scheduled Telephone [facility], [facility] 132 [facility] [place] [address] [facility], Nurse [facility] 132 [place] [address] [phone] Allergies Active Allergy Reactions Severity Noted Date [...] DAY 90 Tab 1 03/17/2021 Active Nystatin 441940 UNIT/GM External Powder (Nystop)Indications: Candidal skin infection [...] Telephone Encounter - Teagan Marquez RN - 07/09/2021 11:07 AM EDT Phone call placed to pt to follow up with abdominal pain and bloating. Pt was recently admitted to the hospital for bowel obstruction. Pt was ordered to take Miralax BID which she has been doing. Bowels remain loose/liquid. No formed stools noted. Pt is unsure of the length of the treatment with miralax. Pt to discuss with PCP at appt tomorrow. Pt denies any further N/V. Some abd cramping continues. Pt is using a heating pad intermittently with relief. Pt states she is eating better and plans to try to increase diet to more solid foods. BP today was 144/70 Pt denies any acute needs or concerns Pt instructed to call [facility] for any changes. documented in this encounter Plan of Treatment Upcoming Encounters Date Type Specialty Care Team Description 07/10/2021 Office Visit Family Medicine Yariel Cardoza MD [address] [place] [address] [place] [address] [phone] 07/13/2021 Home Visit [facility] Corrina Layne RN 132 [facility] [place] [address] [phone] 07/14/2021 [facility] Visit [facility]na Burton [facility]NP [facility] [place] [address] [phone] 09/11/2021 Office Visit Gastroenterology Gianna Stevenson CRNP [facility] [place] [address] [phone] 10/04/2021 Office Visit Dermatology Marie [place] MD [address] [place] [address], [place] [address] [phone] Health Maintenance Due Date Last Done Comments [...] Documents on File Type Date Recorded 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
--- OUTSIDE RECORDS SUMMARY | 2023-06-07 07:54 | External Medical Summary | Summary of Care ---
Author Name Unknown Organization [place] [address] Care Team Providers Care Director Teen Post Name Role Phone Yariel Cardoza MD Primary Care Provide r Encounter Details Date Type Department Care Team Description 06/30/2021 Result Scan Gastroenterology, [address] [place] [address] [place] [address] Evelyne Melgar PA-C [address] [place] [address] [place] [address] <No scans attached> Allergies Active Allergy Reactions Severity Noted Date Comments Adhesive Tape 06/29/2003 Sensitive to Naproxen Hives 05/28/2015 Ivp Dye Hives 08/20/2000 Latex Other (Please comment) 01/05/2015 Contact rash Ibuprofen Rash 01/05/2015 documented as of this encounter (statuses as of 07/03/2021) Medications Medication Sig Dispensed Refills Start Date [...] DAY 90 Tab 1 03/17/2021 Active Nystatin 096350 UNIT/GM External Powder (Nystop)Indications:C andidal skin infection [...] as of this encounter (statuses as of 07/03/2021) Active Problems Problem Noted Date History of [...] as of this encounter (statuses as of 07/03/2021) Resolved Problems Problem Noted Date Resolved Date [...] as of this encounter (statuses as of 07/03/2021) Immunizations Name Administration Dates Next Due COVID-19 mRNA, LNP-s, No Pre serve, 2-Dose Series ([employer]) 12/16/2020,11/25/2020 Pneumococcal Conjugate Vacc, 13 Valent (Prevnar) [...] Description 07/11/2021 Office Visit Family Medicine Josie Ryan, PA-C [address] [place] [address] [place] [address] [phone] 07/13/2021 [facility] Corrina Layne RN 132 [facility] [place] [address] [phone] 10/04/2021 Office Visit Dermatology Marie Conrad MD 200 [facility] [place] [address] [phone] Health Maintenance Due Date Last Done Comments [...] Documents on File Type Date Recorded 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
--- OUTSIDE RECORDS SUMMARY | 2023-06-07 07:54 | External Medical Summary | Summary of Care ---
Author Name Unknown Organization [place] [address] Care Team Providers Care Linoleum Layer Helper Name Role Phone Yariel Cardoza MD [...] as of this encounter (statuses as of 06/29/2021) Medications Medication Sig Dispensed Refills Start Date [...] DAY 90 Tab 1 03/17/2021 Active Nystatin 047348 UNIT/GM External Powder (Nystop)Indications:C andidal skin infection [...] as of this encounter (statuses as of 06/29/2021) Active Problems Problem Noted Date History of [...] as of this encounter (statuses as of 06/29/2021) Resolved Problems Problem Noted Date Resolved Date [...] as of this encounter (statuses as of 06/29/2021) Immunizations Name Administration Dates Next Due COVID-19 mRNA, LNP-s, No Pre serve, 2-Dose Series (Your.MD) 12/16/2020,11/25/2020 Pneumococcal Conjugate Vacc, 13 Valent (Prevnar) [...] Office Visit Family Medicine Josie Ryan PA-C [address] [place] [address] [place] [address] [phone] 07/13/2021 Home Visit [facility] Corrina Layne RN 132 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
--- OUTSIDE RECORDS SUMMARY | 2023-06-07 07:54 | External Medical Summary | Summary of Care ---
Author Name Unknown Organization [place] [address] Care Team Providers Care Color Artist Name Role Phone Yariel Cardoza MD Primary Care Provide r Encounter Details Date Type Department Care Team Description 07/03/2021 Scan Encounter Unspecified Department <No scans attached> Allergies Active Allergy Reactions Severity Noted Date Comments Adhesive Tape 06/29/2003 Sensitive to Naproxen Hives 05/28/2015 Ivp Dye Hives 08/20/2000 Latex Other (Please comment) 01/05/2015 Contact rash Ibuprofen Rash 01/05/2015 documented as of this encounter (statuses as of 07/04/2021) Medications Medication Sig Dispensed Refills Start Date [...] DAY 90 Tab 1 03/17/2021 Active Nystatin 269881 UNIT/GM External Powder (Nystop)Indications:C andidal skin infection [...] as of this encounter (statuses as of 07/04/2021) Active Problems Problem Noted Date History of [...] as of this encounter (statuses as of 07/04/2021) Resolved Problems Problem Noted Date Resolved Date [...] as of this encounter (statuses as of 07/04/2021) Immunizations Name Administration Dates Next Due COVID-19 mRNA, LNP-s, No Pre serve, 2-Dose Series ([employer]) 12/16/2020,11/25/2020 Pneumococcal Conjugate Vacc, 13 Valent (Prevnar) [...] Office Visit Family Medicine Josie Ryan PA-C [address] [place] [address] [place] [address] [phone] 07/11/2021 Office Visit Family Medicine Josie Ryan PA-C [address] [place] [address] [place] [address] [phone] 07/13/2021 [facility] Visit [facility] Corrina Layne RN 132 [facility] [place] [address] [phone] 09/11/2021 Office Visit Gastroenterology Gianna Stevenson CRNP [address] [place] [address] [phone] 10/04/2021 [facility] 200 [place] [address] [phone] Health Maintenance Due Date Last Done Comments [...] Documents on File Type Date Recorded 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
--- OUTSIDE RECORDS SUMMARY | 2023-06-07 07:55 | External Medical Summary | Summary of Care ---
Author Name Unknown Organization [place] [address] Care Team Providers Care Die Assembler Name Role Phone Yariel Cardoza MD Primary Care Provide r Encounter Details Date Type Department Care Team Description 06/26/2021 Telephone Family Medicine [address] [place] [address] Josie Ryan PA-C [address] [place] [address] [place] [address] Allergies Active Allergy Reactions Severity Noted Date Comments Adhesive Tape 06/29/2003 Sensitive to Naproxen Hives 05/28/2015 Ivp Dye Hives 08/20/2000 Latex Other (Please comment) 01/05/2015 Contact rash Ibuprofen Rash 01/05/2015 documented as of this encounter (statuses as of 06/27/2021) Medications Medication Sig Dispensed Refills Start Date [...] DAY 90 Tab 1 03/17/2021 Active Nystatin 032399 UNIT/GM External Powder (Nystop)Indications:C andidal skin infection [...] as of this encounter (statuses as of 06/27/2021) Active Problems Problem Noted Date History of [...] as of this encounter (statuses as of 06/27/2021) Resolved Problems Problem Noted Date Resolved Date [...] as of this encounter (statuses as of 06/27/2021) Immunizations Name Administration Dates Next Due COVID-19 mRNA, LNP-s, No Pre serve, 2-Dose Series ([employer]) 12/16/2020,11/25/2020 Pneumococcal Conjugate Vacc, 13 Valent (Prevnar) [...] Telephone Encounter - Katrina Alaniz CCMA - 06/27/2021 11:15 AM EDT Pt aware. * Telephone Encounter - Josie Ryan PA-C - 06/26/2021 2:13 PM EDT Noted. Repeat US in 1 year. * Telephone Encounter - Katrina Alaniz CCMA - 06/26/2021 1:33 PM EDT Spoke with patient. She said that she did have a biopsy done on a neck nodule back in 2019 with at [facility]. She said that the biopsy came back find and she just needed to have it checked every year. * Telephone Encounter - Josie Ryan PA-C - 06/26/2021 10:27 AM EDT Please call pt. The ultrasound of her neck/thyroid shows a nodule. They do recommend a biopsy, if she hasn't already had this done. documented in this encounter Plan of Treatment Upcoming Encounters Date Type Specialty Care Team Description 07/11/2021 Office Visit Family Medicine Josie Ryan PA-C [address] [place] [address] [place] [id number] 07/13/2021 Home Visit [facility] Corrina Layne, RN 132 [facility] [place] [address] [phone] 10/04/2021 Office Visit Dermatology Marie Conrad MD 200 [facility] [place] [address] [phone] Health Maintenance Due Date Last Done Comments [...] Documents on File Type Date Recorded Patient Metal Sprayer Production Expl 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
--- OUTSIDE RECORDS SUMMARY | 2023-06-07 07:55 | External Medical Summary | Summary of Care ---
Author Name Unknown Organization [place] [address] Care Team Providers Care Peat Shredder Tender Name Role Phone Yariel Cardoza MD Primary Care Provide r Encounter Details Date Type Department Care Team Description 06/14/2021 Orders Only Family Medicine [address] [address] Yariel Cardoza MD [address] [place] [address] [place] [address] Allergies Active Allergy Reactions Severity Noted Date Comments Adhesive Tape 06/29/2003 Sensitive to Naproxen Hives 05/28/2015 Ivp Dye Hives 08/20/2000 Latex Other (Please comment) 01/05/2015 Contact rash Ibuprofen Rash 01/05/2015 documented as of this encounter (statuses as of 06/14/2021) Medications Medication Sig Dispensed Refills Start Date [...] 2,000 Units by mouth daily. 0 Active ondansetron (ZOFRAN) 4 MG Tablet Take 4 mg by mouth every 6 hours as needed for Nausea. Per [facility] ER 0 06/09/2019 Active zoster vac recomb adjuvanted (SHINGRIX) 50 MCG/0.5ML injectionIndications: Need for vaccination for zoster Inject 0.5 mL into a large muscle now and repeat dose in 60 to 180 days 1 Each 1 03/03/2020 Active albuterol-ipratropium (DUONEB) 2.5-0.5 MG/3ML nebulizer solutionIndications:C [...] DAY 90 Tab 1 03/17/2021 Active Nystatin 052609 UNIT/GM External Powder (Nystop)Indications:C andidal skin infection APPLY TOPICALLY TO AFFECTED AREA 3 TIMES A DAY. 45 g 1 03/17/2021 Active Atenolol 25 MG Oral Tablet (Tenormin)Indications :HTN, goal below 140/90 Take 0.5 Tabs by mouth daily. 90 Tab 3 04/12/2021 Active hydroCHLOROthiazide 25 MG Oral Tablet (Hydrodiuril) [...] 10 Tab 0 06/06/2021 Active Losartan Potassium 25 MG Oral Tablet (Cozaar)Indications:H TN, goal below 140/90 Take 1 Tab by mouth daily. 30 Tab 11 06/06/2021 Active documented as of this encounter (statuses as of 06/14/2021) Active Problems Problem Noted Date History of [...] as of this encounter (statuses as of 06/14/2021) Resolved Problems Problem Noted Date Resolved Date [...] as of this encounter (statuses as of 06/14/2021) Immunizations Name Administration Dates Next Due COVID-19 mRNA, LNP-s, No Pre serve, 2-Dose Series (Pfizer) 12/16/2020,11/25/2020 Pneumococcal Conjugate Vacc, 13 Valent (Prevnar) 09/21/2015 Pneumococcal Polysaccharide PPV23 (Pneumovax) Seasonal Influenza, Quadriva lent, No Preserve, 6 [...] Encounters Date Type Specialty Care Team Description 06/15/2021 Procedure Only Endoscopy Shakila Rocha, [address] [place] [address] [phone] 06/19/2021 Imaging Radiology 06/22/2021 Home Visit [facility] Corrina Layne RN [address] [place] [address] [phone] 10/04/2021 Office Visit Dermatology Marie Conrad MD [address] [place] [address] [phone] Health Maintenance Due Date Last Done Comments Zoster Vaccines (1 of 2) 1993 *ADVANCE DIRECTIVE NOT ON FILE 12/23/2015 *DEPRESSION SCREENING,ANNUAL FOR PTS 12 AND OVER 08/14/2020 COLONOSCOPY-EVERY 3 YRS AGES 18-100 03/26/2021 03/26/2018, 03/08/2015 Influenza Vaccine (FLU shot) (#1) 2021 08/12/2020, 07/10/2019, 07/10/2019, Additional history exists *NEPHROLOGY REFERRAL DUE TO RESISTANT HTN 06/08/2021 Dexa Scan 08/17/2022 08/17/2015 DIABETES SCREEN EVERY 3 YRS-AGE 45 AND ABOVE 06/06/2024 06/06/2021, 12/26/2020, 12/26/2020, Additional history exists DTaP,Tdap,and Td Vaccines (2 - Td) 04/19/2028 04/19/2018, 05/03/2004, 05/03/2004 Pneumococcal Vaccine: 65+ Years Completed 03/28/2017, 09/21/2015 COVID-19 Vaccine Completed 12/16/2020, 11/25/2020 MENINGOCOCCAL (MENACTRA/MENVEO) Aged Out No longer eligible based on patient's age to complete this topic documented as of this encounter Implants Not on filedocumented as of this encounter Procedures Procedure Name Priority Date/Time Associated Diagnosis Comments SARS-COV-2 (COVID-19), NAAT Routine 06/13/2021 documented in this encounter Results * SARS-COV-2 (COVID-19), NAAT (06/13/2021) [id number] LAB NEGATIVE OUTSIDE LAB (SEE SCANNED REPORT) Specimen Narrative Performed At OUTSIDE LAB (SEE SCANNED REPORT) documented in this encounter Advance Directives Documents on File Type Date Recorded Patient Server Administrator Expl 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
--- OUTSIDE RECORDS SUMMARY | 2023-06-07 07:55 | External Medical Summary | Summary of Care ---
Author Name Unknown Organization [place] [address] Care Team Providers Care Retail Selling Floor Leader Name Role Phone Yariel Cardoza MD [...] DAY 90 Tab 1 03/17/2021 Active Nystatin 447769 UNIT/GM External Powder (Nystop)Indications:C andidal skin infection [...] mRNA, LNP-s, No Pre serve, 2-Dose Series (Invaluable) 12/16/2020,11/25/2020 Pneumococcal Conjugate Vacc, 13 Valent (Prevnar) [...] Office Visit Family Medicine Josie Ryan PA-C [address] [place] [address] [place] [address] [phone] 07/13/2021 Home Visit [facility] Corrina Layne RN 132 [facility] [place] [address] 10/04/2021 Office Visit Dermatology Marie Conrad MD 200 [facility] [place] [address] [phone] Health Maintenance Due Date Last Done Comments [...] Documents on File Type Date Recorded Patient Helmet Binder Expl 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
--- OUTSIDE RECORDS SUMMARY | 2023-06-07 07:55 | External Medical Summary | Summary of Care ---
Author Name Unknown Organization [place] [address] Care Team Providers Care Physician Intensivist Name Role Phone Yariel Cardoza MD Primary Care Provide r Reason for Visit * Reason Onset Date Comments Acute Medication Administration 06/20/2021 Flu an d/or Pneumo Inj Encounter Details Date Type Department Care Team Description 06/20/2021 Office Visit Family Medicine [address] [place] [address] Josie Ryan PA-C [address] [place] [address] [place] [phone] Need for prophylactic vaccination and inoculation against influenza*; HTN, goal below 140/90 Allergies Active Allergy Reactions Severity Noted Date Comments Adhesive Tape 06/29/2003 Sensitive to Naproxen Hives 05/28/2015 Ivp Dye Hives 08/20/2000 Latex Other (Please comment) 01/05/2015 Contact rash Ibuprofen Rash 01/05/2015 documented as of this encounter (statuses as of 06/20/2021) Medications Medication Sig Dispensed Refills Start Date [...] FOR WHEEZING. 1 Inhaler 5 02/10/2018 Active umeclidinium-vilan terol (ANORO ELLIPTA) 62.5-25 MCG/INH [...] 04/11/2020 Active Dicyclomine HCl 10 MG Oral CapsuleIndications [...] DAY 90 Tab 1 03/17/2021 Active Nystatin 347637 UNIT/GM External Powder (Nystop)Indication s:Candidal skin infection APPLY TOPICALLY TO AFFECTED AREA 3 TIMES A DAY. 45 g 1 03/17/2021 Active hydroCHLOROthiazid e 25 MG Oral Tablet [...] 06/06/2021 Active Atenolol 25 MG Oral Tablet (Tenormin)Indicati ons:HTN, goal below 140/90 Take 1 Tab by mouth daily. 90 Tab 3 06/20/2021 Active Losartan Potassium 50 MG Oral Tablet (Cozaar)Indication s:HTN, goal below 140/90 Take 1 Tab by mouth daily. 30 Tab 5 06/20/2021 Active ondansetron (ZOFRAN) 4 MG Tablet Take 4 mg by mouth every 6 hours as needed for Nausea. Per [facility] ER 0 06/09/2019 06/20/2021 Discontinue d(Patient preference/ discontinua tion) zoster vac recomb adjuvanted (SHINGRIX) 50 MCG/0.5ML injectionIndicatio ns:Need for vaccination for zoster Inject 0.5 mL into a large muscle now and repeat dose in 60 to 180 days 1 Each 1 03/03/2020 06/20/2021 Discontinue d(Patient preference/ discontinua tion) Atenolol 25 MG Oral Tablet (Tenormin)Indicati ons:HTN, goal below 140/90 Take 0.5 Tabs by mouth daily. 90 Tab 3 04/12/2021 06/20/2021 Discontinue d(Medicatio n/Dose Changed) Losartan Potassium 25 MG Oral Tablet (Cozaar)Indication s:HTN, goal below 140/90 Take 1 Tab by mouth daily. 30 Tab 11 06/06/2021 06/20/2021 Discontinue d(Refill) documented as of this encounter (statuses as of 06/20/2021) Active Problems Problem Noted Date History of [...] as of this encounter (statuses as of 06/20/2021) Resolved Problems Problem Noted Date Resolved Date [...] as of this encounter (statuses as of 06/20/2021) Immunizations Name Administration Dates Next Due COVID-19 [...] Sign Reading Time Taken Comments Blood Pressure 182/90 06/20/2021 9:03 AM EDT Pulse 76 06/20/2021 9:03 AM EDT Temperature 36.7 C (98 F) 06/20/2021 9:03 AM EDT Respiratory Rate 16 06/20/2021 9:03 AM EDT Oxygen Saturation - - Inhaled Oxygen Concentration - - Weight 90.3 kg (199 lb) 06/20/2021 9:03 AM EDT Height 154.9 cm (5' 1") 06/20/2021 9:03 AM EDT Body Mass Index 37.6 06/20/2021 9:03 AM EDT documented in this encounter Progress Notes * Josie Ryan PA-C - 06/20/2021 9:11 AM EDT Nursing Notes: Елена Brooks RN 06/20/21 0908 Sign at exiting of workspace Pt here for elevated BP 180/90 today, also thinks she has a sinus infection. She has had a headachex 3 weeks Pt here today with elevated BP for the past few days. Pt states that it is running at 150's/90's orhigher. Pt denies chest pain, SOB, fever, chills, dizziness, lightheadedness, syncope, swelling in legs. Pt is taking all of her meds as directed. Pt has had a headache. She does have problems with allergies. She stopped using her flonase but it did help. Review of patient's allergies indicates: Allergen Reactions Adhesive Tape Sensitive to Aleve [Naproxen] Hives Ivp Dye Hives Latex Other (Please comment) Contact rash Motrin [Ibuprofen] Rash Current Outpatient Medications Medication Sig Dispense Refill Losartan Potassium 25 MG Oral Tablet (Cozaar) Take 1 Tab by mouth daily. 30 Tab 11 Potassium Chloride ER 10 MEQ Oral Tablet Extended Release TAKE 1 TABLET BY MOUTH EVERY DAY 90 Tab 2 hydroCHLOROthiazide 25 MG Oral Tablet (Hydrodiuril) TAKE 1 TABLET BY MOUTH EVERY DAY 90 Tab 3 Clopidogrel Bisulfate 75 MG Oral Tablet (pLAVix) TAKE 1 TABLET BY MOUTH EVERY DAY 90 Tab 1 Nystatin 165197 UNIT/GM External Powder (Nystop) APPLY TOPICALLY TO AFFECTED AREA 3 TIMES A DAY. 45 g 1 Omeprazole 20 MG Oral Capsule Delayed Release (PriLOSEC) TAKE 2 CAPSULES BY MOUTH EVERY DAY 180Cap 1 Atorvastatin Calcium 40 MG Oral Tablet [...] L/min(Oxygen) as directed continuous. 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 BENIGN HYPERTENSION 01/28/2002 Bilateral carpal tunnel syndrome 07/20/2015 COPD (chronic obstructive pulmonary disease) ([facility]) COPD, severe ([facility]) 12/21/2015 COPD, severity to be determined ([facility]) 07/20/2015 Dyslipidemia, goal LDL below 100 10/16/2015 Dyslipidemia, goal LDL below 130 08/22/2015 FAM HX-CARDIOVAS DIS NEC 01/28/2002 Generalized osteoarthritis 08/22/2015 GERD (gastroesophageal reflux disease) 07/20/2015 Hypertrophy of breast 08/31/2003 IBS (irritable bowel syndrome) 07/20/2015 Kidney disease, chronic, stage III (GFR 30-59 ml/min) ([facility]) 10/16/2015 Kidney stone Lumbar degenerative disc disease 02/06/2016 Lumbar facet arthropathy ([facility]) 02/06/2016 Lumbar spinal stenosis 02/18/2017 [...] Not on file Occupational History 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 Social Needs Financial resource strain: Not on file Food insecurity Worry: Never true Inability: Never true Transportation needs Medical: Not on file Non-medical: Not on file Tobacco Use Smoking status: Former Smoker Packs/day: 1.75 Years: 38.00 Pack years: 66.50 Types: Cigarettes Quit date: 10/07/1995 Years since quittin.7 Smokeless tobacco: Never Used Tobacco comment: quit in 1995 Substance and Sexual Activity Alcohol use: No Drug use: No Sexual activity: Not Currently Partners: Male Lifestyle Physical activity Days per week: Not on file Minutes per session: Not on file Stress: Not on file Relationships Social connections Talks on phone: Not on file Gets together: Not on file Attends [employer] service: Not on file Active member of club or organization: Not on file Attends meetings of clubs or organizations: Not on file Relationship status: Not on file Intimate partner violence Fear of current or ex partner: Not on file Emotionally abused: Not on file Physically abused: Not on file Forced sexual activity: Not on file Other Topics Concern Service No Blood Transfusions No Caffeine Concern No Occupational Exposure No Hobby Hazards No Sleep Concern No Stress Concern No Weight Concern Yes Special Diet Not Asked Back Care No Exercise No Bike Helmet Not Asked Seat Belt Yes Self-Exams Not Asked Social History Narrative 5 grandchildren, 4 in the area. 3 living children. Vaping/E-Cigarette Use Vaping/E-Cigarette Substances Vaping/E-Cigarette Devices O:Blood pressure 182/90, pulse 76, temperature 36.7 C (98 F), temperature source Tympanic, resp. rate 16, height (!) 1.549 m (5' 1"), weight 90.3 kg (199 lb). GENERAL: alert, healthy and no distress NECK: supple, no adenopathy HEART: regular rate & rhythm, no murmurs and no gallops LUNGS: chest symmetric with normal AP diameter, no chest deformities noted, no chest wall tenderness, lungs clear to auscultation HEAD: Normocephalic, No masses, lesions, tenderness or abnormalities EXTREMITIES: no edema A:Need for prophylactic vaccination and inoculation against influenza (Primary) - INFLUENZA VACC, QUAD, HIGH DOSE (FLUZONE HD) HTN, goal below 140/90 - Losartan Potassium 50 MG Oral Tablet (Cozaar); Take 1 Tab by mouth daily. Increase losartan from 25 mg daily to 50 mg daily. Return in 2 weeks for nurse visit BP check. Any questions/problems, please call. If anything changes, worsens, develops new sx, please call MATT. Continue BP monitoring. Follow Up: Return if symptoms worsen or fail to improve. Josie Ryan PA-C * Елена Brooks RN - 06/20/2021 9:08 AM EDT Immunization Administration Documentation Time Out Procedure Performed: Yes Patient Identified (Ask Name/Date of ): Yes Does the patient have a fever greater than 101 degrees today? No Patient allergic to latex? No VFC Stock: No Immunization(s) verified: Yes, Immunization Name: Flu, VIS Sheet(s) given: Yes Verified Side and Site: Yes Verified Shot(s) with Parent(s)/Patient: Yes PRE - ADMINISTRATION DOCUMENTATION Are you experiencing any cold symptoms or fever? No Have you had Guillain-Vista Syndrome (an illness that causes paralysis) within the last 6 weeks? No Have you had the flu shot in the past? YES Have you ever had a reaction to the flu shot? No Елена Brooks RN, 06/20/2021 9:08 AM documented in this encounter Nursing Notes * Елена Brooks RN - 06/20/2021 9:06 AM EDT Pt here for elevated BP 180/90 today, also thinks she has a sinus infection. Has drainage, She has had a headache x 3 weeks documented in this encounter Plan of Treatment Upcoming Encounters Date Type Specialty Care Team Description 06/22/2021 Home Visit [facility] Corrina Layne, SELENE [address] [place] [address] [phone] 06/22/2021 Imaging Radiology 07/11/2021 Office Visit Family Medicine Josie Ryan PA-C [address] [place] [address] [place] [phone] 10/04/2021 Office Visit Dermatology Marie Conrad MD 200 [facility] [place] [address] Health Maintenance Due Date Last Done Comments [...] prophylactic vaccination and inoculation against influenza- Primary HTN, goal below 140/90 Unspecified essential hypertension documented in this encounter Advance Directives Documents on File Type Date Recorded Patient Audio Production Instructor Expl 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
--- OUTSIDE RECORDS SUMMARY | 2023-06-07 07:55 | External Medical Summary | Summary of Care ---
Author Name Unknown Organization [place] [address] Care Team Providers Care Fence Installer Helper Name Role Phone Yariel Cardoza MD Primary Care Provide r Reason for Visit * Reason Onset Date Comments Encounter Created in Error 06/07/2021 Encounter Details Date Type Department Care Team Description 06/07/2021 Telephone Family [address] [place] [address] Josie Ryan PA-C [address] [place] [address] [place] [phone] Encounter Created in Error Allergies Active Allergy Reactions Severity Noted Date Comments Adhesive Tape 06/29/2003 Sensitive to Naproxen Hives 05/28/2015 Ivp Dye Hives 08/20/2000 Latex Other (Please comment) 01/05/2015 Contact rash Ibuprofen Rash 01/05/2015 documented as of this encounter (statuses as of 06/07/2021) Medications Medication Sig Dispensed Refills Start Date [...] 6 hours as needed for Nausea. Per [facility] ER 0 06/09/2019 Active zoster vac [...] DAY 90 Tab 1 03/17/2021 Active Nystatin 064169 UNIT/GM External Powder (Nystop)Indications:C andidal skin infection [...] as of this encounter (statuses as of 06/07/2021) Active Problems Problem Noted Date History of [...] as of this encounter (statuses as of 06/07/2021) Resolved Problems Problem Noted Date Resolved Date [...] as of this encounter (statuses as of 06/07/2021) Immunizations Name Administration Dates Next Due COVID-19 [...] encounter Miscellaneous Notes * Telephone Encounter - Josie Ryan PA-C - 06/07/2021 8:06 AM EDT Letter sent documented in this encounter Plan of Treatment Upcoming Encounters Date Type Specialty Care Team Description 06/15/2021 Procedure Only Endoscopy Shakila Rocha DO [address] [place] [address] [phone] 06/19/2021 Imaging Radiology 06/22/2021 Home Visit [facility] Corrina Layne RN [address] [place] [address] [phone] 10/04/2021 [facility] [address] [phone] Health Maintenance Due Date Last Done Comments Zoster Vaccines (1 of 2) 1993 *ADVANCE DIRECTIVE NOT ON FILE 12/23/2015 *DEPRESSION SCREENING,ANNUAL FOR PTS 12 AND OVER 08/14/2020 COLONOSCOPY-EVERY 3 YRS AGES 18-100 03/26/2021 03/26/2018, 03/08/2015 Influenza Vaccine (FLU shot) (#1) 2021 08/12/2020, 07/10/2019, 07/10/2019, Additional history exists Dexa Scan 08/17/2022 08/17/2015 DIABETES SCREEN EVERY [...] Documents on File Type Date Recorded Patient Overhead Crane Inspector Expl 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
--- OUTSIDE RECORDS SUMMARY | 2023-06-07 07:55 | External Medical Summary | Summary of Care ---
Author Name Unknown Organization [place] [address] Care Team Providers Care Facility Maintenance Worker Name Role Phone Yariel Cardoza MD Primary Care Provide r Reason for Visit * Reason Onset Date Comments Advice 06/08/2021 Encounter Details Date Type Department Care Team Description 06/08/[address] [address] Yariel Cardoza MD [address] [place] [address] [place] [phone] Advice Allergies Active Allergy Reactions Severity Noted Date Comments Adhesive Tape 06/29/2003 Sensitive to Naproxen Hives 05/28/2015 Ivp Dye Hives 08/20/2000 Latex Other (Please comment) 01/05/2015 Contact rash Ibuprofen Rash 01/05/2015 documented as of this encounter (statuses as of 06/09/2021) Medications Medication Sig Dispensed Refills Start Date [...] hours as needed for Nausea. Per [facility] ER 0 06/09/2019 Active zoster vac [...] DAY 90 Tab 1 03/17/2021 Active Nystatin 207647 UNIT/GM External Powder (Nystop)Indications:C andidal skin infection [...] as of this encounter (statuses as of 06/09/2021) Active Problems Problem Noted Date History of [...] as of this encounter (statuses as of 06/09/2021) Resolved Problems Problem Noted Date Resolved Date [...] as of this encounter (statuses as of 06/09/2021) Immunizations Name Administration Dates Next Due COVID-19 mRNA, LNP-s, No Pre serve, 2-Dose Series ([employer]) 12/16/2020,11/25/2020 Pneumococcal Conjugate Vacc, 13 Valent (Prevnar) [...] Telephone Encounter - Courtney Montiel LPN - 06/09/2021 5:02 PM EDT Pt informed of message below and verbalized understanding * Telephone Encounter - Jade Castillo MD - 06/09/2021 4:32 PM EDT Pt has hx of R vertebral aa stenosis with hx of TIA - stop Plavix 5 days prior to EGD * Telephone Encounter - Courtney Montiel LPN - 06/09/2021 9:33 AM EDT Pt has been seeing Dr. Castillo recently Please advise * Telephone Encounter - Jose D South OSA - 06/08/2021 4:59 PM EDT Patient needs to know if she needs to stop her Plavix for her upcoming colonoscopy. Please advise. Call back: [phone] documented in this encounter Plan of Treatment Upcoming Encounters Date Type Specialty Care Team Description 06/15/2021 Procedure Only Endoscopy Shakila Rocha, [address] [place] [address] [phone] 06/19/2021 Imaging Radiology 06/22/2021 Home Visit [facility] Corrina Layne RN [address] [place] [address] 10/04/2021 Office Visit [facility] [address] [phone] Health Maintenance Due Date Last Done Comments [...] Documents on File Type Date Recorded Patient Fur Sorter Expl 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
--- OUTSIDE RECORDS SUMMARY | 2023-06-07 07:55 | External Medical Summary | Summary of Care ---
Author Name Unknown Organization [place] [address] Care Team Providers Care Sql Server Developer Name Role Phone Yariel Cardoza MD Primary Care Provide r Encounter Details Date Type Department Care Team Description 06/15/2021 Orders Only Gastroenterology, [facility] [address] [facility] [place] [address] Shakila Rocha DO 132 [facility] [place] [address] Allergies Active Allergy Reactions Severity Noted Date Comments Adhesive Tape 06/29/2003 Sensitive to Naproxen Hives 05/28/2015 Ivp Dye Hives 08/20/2000 Latex Other (Please comment) 01/05/2015 Contact rash Ibuprofen Rash 01/05/2015 documented as of this encounter (statuses as of 06/15/2021) Medications Medication Sig Dispensed Refills Start Date [...] 6 hours as needed for Nausea. Per [facility] ER 0 06/09/2019 Active zoster vac recomb [...] DAY 90 Tab 1 03/17/2021 Active Nystatin 045009 UNIT/GM External Powder (Nystop)Indications:C andidal skin infection [...] as of this encounter (statuses as of 06/15/2021) Active Problems Problem Noted Date History of [...] as of this encounter (statuses as of 06/15/2021) Resolved Problems Problem Noted Date Resolved Date [...] as of this encounter (statuses as of 06/15/2021) Immunizations Name Administration Dates Next Due COVID-19 mRNA, LNP-s, No Pre serve, 2-Dose Series ([employer]) 12/16/2020,11/25/2020 Pneumococcal Conjugate Vacc, 13 Valent (Prevnar) [...] Encounters Date Type Specialty Care Team Description 06/19/2021 Imaging Radiology 06/22/2021 Home Visit [facility] Corrina Layne RN [address] [facility] [id number] 10/04/2021 Office Visit Dermatology Marie Conrad MD [address] [place] [address] [phone] Health Maintenance Due Date Last Done Comments Zoster Vaccines (1 of 2) 1993 *ADVANCE DIRECTIVE NOT ON FILE 12/23/2015 *DEPRESSION SCREENING,ANNUAL FOR PTS 12 AND OVER 08/14/2020 COLONOSCOPY-EVERY 3 YRS AGES 18-100 03/26/2021 06/15/2021, 03/26/2018, 03/08/2015 Influenza Vaccine (FLU shot) (#1) [...] Procedure Name Priority Date/Time Associated Diagnosis Comments COLONOSCOPY 06/15/2021 documented in this encounter Results * COLONOSCOPY (06/15/2021) Specimen Narrative Performed At documented in this encounter Advance Directives Documents on File Type Date Recorded Patient Health Policy Analyst Expl 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
--- OUTSIDE RECORDS SUMMARY | 2023-06-07 07:55 | External Medical Summary | Summary of Care ---
Author Name Unknown Organization [place] [address] Care Team Providers Care Pouncer Name Role Phone Yariel Cardoza MD Primary Care Provide r Reason for Visit * Reason Onset Date Comments Advice 06/08/2021 Encounter Details Date Type Department Care Team Description 06/08/[address] [id number] Yariel Cardoza MD [address] [place] [address] [place] [id number] Advice Allergies Active Allergy Reactions Severity Noted [...] 6 hours as needed for Nausea. Per [facility] ER 0 06/09/2019 Active zoster vac [...] DAY 90 Tab 1 03/17/2021 Active Nystatin 587789 UNIT/GM External Powder (Nystop)Indications:C andidal skin infection [...] mRNA, LNP-s, No Pre serve, 2-Dose Series ([employer]) 12/16/2020,11/25/2020 Pneumococcal Conjugate Vacc, 13 Valent (Prevnar) [...] her upcoming colonoscopy. Please advise. Call back: [phone] documented in this encounter Plan of Treatment Upcoming Encounters Date Type Specialty Care Team Description 06/15/2021 Procedure Only Endoscopy Shakila Rocha, 132 [place] [address] [phone] 06/19/2021 Imaging Radiology 06/22/2021 Home Visit [facility] Corrina Layne RN [address] [place] [address] 10/04/2021 Office Visit [facility] [address] [phone] Health Maintenance Due Date Last Done Comments [...] Documents on File Type Date Recorded Patient Shoe Cobbler Expl 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
--- OUTSIDE RECORDS SUMMARY | 2023-06-07 07:55 | External Medical Summary | Summary of Care ---
Author Name Unknown Organization [place] [address] Care Team Providers Care Principal Developer Name Role Phone Yariel Cardoza MD Primary Care Provide r Reason for Visit * Reason Onset Date Comments MyCode Consent 06/20/2021 Encounter Details Date Type Department Care Team Description 06/20/2021 Orders Only [facility] Department [address] [place], [place] [id number] Tonia Yusuf CHRA MyCode Research Other*[id number]* Allergies Active Allergy Reactions Severity Noted Date [...] DAY 90 Tab 1 03/17/2021 Active Nystatin 386835 UNIT/GM External Powder (Nystop)Indication s:Candidal skin infection [...] 90 Tab 3 06/20/2021 Active Losartan Potassium 25 MG Oral Tablet (Cozaar)Indication [...] mRNA, LNP-s, No Pre serve, 2-Dose Series ([employer] 12/16/2020,11/25/2020 Pneumococcal Conjugate Vacc, 13 Valent (Prevnar) [...] as of this encounter Progress Notes * Tonia Yusuf CHRA - 06/20/2021 9:16 AM EDT MyCode Consent Documentation Jayla Hayes provided consent/authorization to participate in the MyCode Project. documented in this encounter Plan of Treatment Upcoming Encounters Date Type Specialty Care Team Description 06/22/2021 Home Visit [facility] Corrina Layne RN 132 [facility] [place] [address] [phone] 06/22/2021 Imaging Radiology 07/11/2021 Office Visit Family Medicine Josie Ryan PA-C [address] [place] [address] [place] [address] [phone] 10/04/2021 Office Visit Dermatology Marie Conrad MD 200 [facility] [place] [address] [phone] Scheduled Orders Name Type Priority Associated Diagnoses Orde r Schedule MYCODE INITIAL ADULT Lab Routine MyCode Research Other*[id number] Expected: 06/20/2021 (Approximate), Expires: 07/10/2022 Health Maintenance Due Date Last Done Comments [...] this encounter Visit Diagnoses Diagnosis MyCode Research Other*[id number]- Primary documented in this encounter Advance Directives Documents on File Type Date Recorded Patient Car Refinisher Expl 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
--- OUTSIDE RECORDS SUMMARY | 2023-06-07 07:55 | External Medical Summary | Summary of Care ---
Author Name Unknown Organization [place] [address] Care Team Providers Care Tankage Grinder Name Role Phone Yariel Cardoza MD Primary Care Provide r Encounter Details Date Type Department Care Team Description 06/15/2021 Scan Encounter Unspecified Department <No scans attached> Allergies Active Allergy Reactions Severity Noted Date Comments Adhesive Tape 06/29/2003 Sensitive to Naproxen Hives 05/28/2015 Ivp Dye Hives 08/20/2000 Latex Other (Please comment) 01/05/2015 Contact rash Ibuprofen Rash 01/05/2015 documented as of this encounter (statuses as of 06/16/2021) Medications Medication Sig Dispensed Refills Start Date [...] 6 hours as needed for Nausea. Per [facility] ER 0 06/09/2019 Active zoster vac recomb [...] DAY 90 Tab 1 03/17/2021 Active Nystatin 855104 UNIT/GM External Powder (Nystop)Indications:C andidal skin infection [...] as of this encounter (statuses as of 06/16/2021) Active Problems Problem Noted Date History of [...] as of this encounter (statuses as of 06/16/2021) Resolved Problems Problem Noted Date Resolved Date [...] as of this encounter (statuses as of 06/16/2021) Immunizations Name Administration Dates Next Due COVID-19 mRNA, LNP-s, No Pre serve, 2-Dose Series ([employer]) 12/16/2020,11/25/2020 Pneumococcal Conjugate Vacc, 13 Valent (Prevnar) [...] [facility] Corrina Layne RN 132 [facility] [place] [address] [phone] 10/04/2021 Office Visit Dermatology VanMarie rushing MD 200 [place] [address] [phone] Health Maintenance Due Date Last Done Comments Zoster Vaccines (1 of 2) 1993 *ADVANCE DIRECTIVE NOT ON FILE 12/23/2015 *DEPRESSION SCREENING,ANNUAL FOR PTS 12 AND OVER 08/14/2020 Influenza Vaccine (FLU shot) (#1) 2021 08/12/2020, [...] Documents on File Type Date Recorded Patient Flanging Operator Expl 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
--- OUTSIDE RECORDS SUMMARY | 2023-06-07 07:55 | External Medical Summary | Summary of Care ---
Author Name Unknown Organization [place] [address] Care Team Providers Care Polymerization Helper Name Role Phone Yariel Cardoza MD Primary Care Provide r Reason for Visit * Reason Comments eRx-Medication Refill Encounter Details Date Type Department Care Team Description 06/09/2021 Refill Internal Medicine [address] [place] [id number] Yariel Cardoza MD [address] [place] [address] [place] [id number] HTN, goal below 140/90 Allergies Active Allergy Reactions Severity Noted Date Comments Adhesive Tape 06/29/2003 Sensitive to Naproxen Hives 05/28/2015 Ivp Dye Hives 08/20/2000 Latex Other (Please comment) 01/05/2015 Contact rash Ibuprofen Rash 01/05/2015 documented as of this encounter (statuses as of 06/11/2021) Medications Medication Sig Dispensed Refills Start Date [...] 6 hours as needed for Nausea. Per [facility] ER 0 06/09/2019 Active zoster vac [...] DAY 90 Tab 1 03/17/2021 Active Nystatin 414186 UNIT/GM External Powder (Nystop)Indications:C andidal skin infection [...] as of this encounter (statuses as of 06/11/2021) Active Problems Problem Noted Date History of [...] as of this encounter (statuses as of 06/11/2021) Resolved Problems Problem Noted Date Resolved Date [...] as of this encounter (statuses as of 06/11/2021) Immunizations Name Administration Dates Next Due COVID-19 mRNA, LNP-s, No Pre serve, 2-Dose Series ([employer]) 12/16/2020,11/25/2020 Pneumococcal Conjugate Vacc, 13 Valent (Prevnar) [...] Miscellaneous Notes * Telephone Encounter - Rosio Valdez RPh - 06/11/2021 11:55 AM EDT Refused Prescriptions: Disp Refills amLODIPine Besylate 2.5 MG Oral Tablet (No*90 Tab 3 Sig: TAKE 1TABLET BY MOUTH EVERY DAYRefused By: ROSIO VALDEZ for Refusal: Refill Not Appropriate documented in this encounter Plan of Treatment Upcoming Encounters Date Type Specialty Care Team Description 06/15/2021 Procedure Only Endoscopy Shakila Rocha DO [address] [place] [address] [phone] 06/19/2021 Imaging Radiology 06/22/2021 Home Visit [facility] Corrina Layne RN [address] [place] [address] [phone] 10/04/2021 Office Visit [facility] [address] [phone] Health Maintenance Due Date Last Done Comments [...] on File Type Date Recorded Patient Rn Case Manager Expl 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
--- OUTSIDE RECORDS SUMMARY | 2023-06-07 07:56 | External Medical Summary | Summary of Care ---
Author Name Unknown Organization [place] [address] Care Team Providers Care Supervisor Grinding Name Role Phone Yariel Cardoza MD Primary Care Provide r Reason for Visit * Reason Comments [facility]: Maintenance Encounter Details Date Type Department Care Team Description 05/11/2021 [facility] Visit [facility], [facility] [address] [place] [address] Corrina Layne RN 132 [facility] [place] [address] [phone] Allergies Active Allergy Reactions Severity Noted Date Comments Adhesive Tape 06/29/2003 Sensitive to Naproxen Hives 05/28/2015 Ivp Dye Hives 08/20/2000 Latex Other (Please comment) 01/05/2015 Contact rash Ibuprofen Rash 01/05/2015 documented as of this encounter (statuses as of 05/15/2021) Medications Medication Sig Dispensed Refills Start Date [...] 6 hours as needed for Nausea. Per [facility] ER 0 06/09/2019 Active zoster vac recomb [...] OR WHEEZING. 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 for abdominal pain 120 Cap 5 12/22/2020 Active Meclizine HCl 25 MG Oral Tablet (Antivert) TAKE 1 TABLET BY MOUTH ONCE EVERY 6 HOURS NEEDED FOR DIZZINESS/VERTIGO 10 Tab 0 12/22/2020 Active Atorvastatin Calcium 40 MG Oral [...] DAY 90 Tab 1 03/17/2021 Active Nystatin 569774 UNIT/GM External Powder (Nystop)Indications:C andidal skin infection APPLY TOPICALLY TO AFFECTED AREA 3 TIMES A DAY. 45 g 1 03/17/2021 Active Atenolol 25 MG Oral Tablet (Tenormin)Indications :HTN, goal below 140/90 Take 0.5 Tabs by mouth daily. 90 Tab 3 04/12/2021 Active hydroCHLOROthiazide 25 MG Oral Tablet (Hydrodiuril) TAKE 1 TABLET BY MOUTH EVERY DAY 90 Tab 3 04/15/2021 Active documented as of this encounter (statuses as of 05/15/2021) Active Problems Problem Noted Date History of [...] as of this encounter (statuses as of 05/15/2021) Resolved Problems Problem Noted Date Resolved Date [...] as of this encounter (statuses as of 05/15/2021) Immunizations Name Administration Dates Next Due COVID-19 mRNA, LNP-s, No Pre serve, 2-Dose Series ([employer]) 12/16/2020,11/25/2020 Pneumococcal Conjugate Vacc, 13 Valent (Prevnar) [...] Sign Reading Time Taken Comments Blood Pressure 130/60 05/11/2021 10:42 AM EDT Pulse 80 05/11/2021 10:42 AM EDT Temperature 36.4 C (97.6 F) 05/11/2021 10:42 AM E DT Respiratory Rate 18 05/11/2021 10:42 AM EDT Oxygen Saturation 98% 05/11/2021 10:42 AM EDT Inhaled Oxygen Concentration - - Weight - - Height - - Body Mass Index - - documented in this encounter Progress Notes * Corrina Layne RN - 05/11/2021 10:00 AM EDT [facility] Monthly Visit Date: 05/11/2021 Time: 9:40 AM Name: Jayla Hayes : 1945 Current Concerns: Pt being seen for routine monthly visit. Reports that she has been seeing primary care for medication adjustment-bp meds. Patient checking bp and recording at home for review. No hypotension. Had been running higher (150-160s systolic) in afternoons, but that has improved. Copd symptoms stable. No sx's of exacerbation. Pt uses oxygen PRN. Using nebs/inhalers as ordered per pt. No other complaints at this time. Physical Exam: BP 130/60 (BP Site: Left Arm, BP Position: Sitting, BP Cuff Size: Regular) | Pulse 80 | Temp 36.4 C (97.6 F) (Infrared ) | Resp 18 | SpO2 98% Pain 0 Physical Exam Cardiovascular: Pulses: Normal pulses. Pulmonary: Effort: Pulmonary effort [...] Problems/Symptoms: Review of Systems Constitutional: Negative for activity change, chills and fever. HENT: Negative. Eyes: Negative. Respiratory: Negative. Cardiovascular: Negative. Gastrointestinal: Negative. Endocrine: Negative. Genitourinary: Negative for difficulty urinating and hematuria. Musculoskeletal: Positive for arthralgias. Allergic/Immunologic: Negative. Neurological: Negative. Hematological: Negative. Psychiatric/Behavioral: Negative. Medication Reconciliation: (See medication list) Does patient take medications as ordered: Yes Patient Well Being: PHQ2/9: No questionnaires available. Mood stable. Denies falls. Advanced Care Planning: Living Will. 3 Red Flags increased sob, increased cough/wheezing not relived by nebs, fever Goals of care: 1. to stay out [...] exercises that will be right for you. -Instructed on lifestyle modifications: Weight management, DASH-low sodium eating plan, regular aerobic physical activity and moderation of alcohol consumption. Target blood pressure <130/80. Monitor BP daily, varying times, document and take to next PCP visit. Reinforced safety education and fall prevention. and Reinforced medication regimen. Timing., Dosing. and Purspose. Treatment/Plan: Continue to check bp bid and record. Take meds as ordered Keep appts with pcp Low Na diet RNCM return in 6 weeks or sooner if needed. Home Interventions Provided: Reinforced current Plan of Care, including self-management and medication regimen Patient Needs to Remember: Call [facility] at with any new or worsening health concerns or problems, red flag symptoms. Follow Up: Patient encouraged to call the intake phone number for all urgent but not emergent issues. Is the patient new to [facility] within the last 30 days? No, Assess appropriateness for upcoming telehealth visits. Cancel telehealth visits & schedule home visit with care steam box hand(s)as indicated. Provider is in agreement with Plan of Care: Yes Scheduled to follow up with patient in 6 weeks. Corrina Layne RN 05/11/2021 9:40 AM documented in this encounter Plan of Treatment Upcoming Encounters Date Type Specialty Care Team Description 05/29/2021 Office Visit Family Medicine Jade Castillo MD [address] [place] [address] [place] [address] [phone] 06/15/2021 Procedure Only Endoscopy Shakila Rocha, DO [address] [place] [address] [phone] 06/22/2021 Home Visit [facility] Corrina Layne RN [address] [place] [address] [phone] 10/04/2021 Office Visit [facility]ermatology VanMarie rushing MD [facility] [address] [phone] Health Maintenance Due Date Last Done Comments Zoster Vaccines (1 of 2) 1993 *ADVANCE DIRECTIVE NOT ON FILE 12/23/2015 *DEPRESSION SCREENING,ANNUAL FOR PTS 12 AND OVER 08/14/2020 COLONOSCOPY-EVERY 3 YRS AGES 18-100 03/26/2021 03/26/2018, 03/08/2015 Influenza Vaccine (FLU shot) (#1) 2021 08/12/2020, 07/10/2019, 07/10/2019, Additional history exists Dexa Scan 08/17/2022 08/17/2015 DIABETES SCREEN EVERY 3 YRS-AGE 45 AND ABOVE 12/27/2023 12/26/2020, 12/26/2020, 09/22/2020, Additional history exists DTaP,Tdap,and Td Vaccines (2 - Td) 04/19/2028 04/19/2018, 05/03/2004, 05/03/2004 Pneumococcal Vaccine: 65+ Years Completed 03/28/2017, 09/21/2015 COVID-19 Vaccine Completed 12/16/2020, 11/25/2020 MENINGOCOCCAL (MENACTRA/MENVEO) Aged Out No longer eligible based on patient's age to complete this topic documented as of this encounter Implants Not on filedocumented as of this encounter Advance Directives Documents on File Type Date Recorded 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
--- OUTSIDE RECORDS SUMMARY | 2023-06-07 07:56 | External Medical Summary | Summary of Care ---
Author Name Unknown Organization [place] [address] Care Team Providers Care Pail Tester Name Role Phone Yariel Cardoza MD Primary Care Provide r Reason for Visit * Reason Comments Re-Check BP f/u, Pt having Co lonoscopy on 06/15/21 questionging if needs to stop Plavix Encounter Details Date Type Department Care Team Description 06/06/2021 Office Visit Family Medicine [address] [place] [address] Josie Ryan PA-C [address] [place] [address] [place] [address] HTN, goal below 140/90*; Thyroid nodule; Bruising Allergies Active Allergy Reactions Severity Noted Date Comments Adhesive Tape 06/29/2003 Sensitive to Naproxen Hives 05/28/2015 Ivp Dye Hives 08/20/2000 Latex Other (Please comment) 01/05/2015 Contact rash Ibuprofen Rash 01/05/2015 documented as of this encounter (statuses as of 06/06/2021) Medications Medication Sig Dispensed Refills Start Date [...] 6 hours as needed for Nausea. Per [facility] ER 0 06/09/2019 Active zoster vac recomb adjuvanted (SHINGRIX) 50 MCG/0.5ML injectionIndicatio ns:Need for vaccination for zoster Inject 0.5 mL into a large muscle now and repeat dose in 60 to 180 days 1 Each 1 03/03/2020 Active albuterol-ipratrop ium (DUONEB) 2.5-0.5 MG/3ML nebulizer [...] DAY 90 Tab 1 03/17/2021 Active Nystatin 957803 UNIT/GM External Powder (Nystop)Indication s:Candidal skin infection APPLY TOPICALLY TO AFFECTED AREA 3 TIMES A DAY. 45 g 1 03/17/2021 Active Atenolol 25 MG Oral Tablet (Tenormin)Indicati ons:HTN, goal below 140/90 Take 0.5 Tabs by mouth daily. 90 Tab 3 04/12/2021 Active hydroCHLOROthiazid e 25 MG Oral Tablet [...] mouth daily. 30 Tab 11 06/06/2021 Active Meclizine HCl 25 MG Oral Tablet (Antivert) TAKE 1 TABLET BY MOUTH ONCE EVERY 6 HOURS NEEDED FOR DIZZINESS/VERTI GO 10 Tab 0 12/22/2020 06/06/2021 Discontinue d(Refill) documented as of this encounter (statuses as of 06/06/2021) Active Problems Problem Noted Date History of [...] as of this encounter (statuses as of 06/06/2021) Resolved Problems Problem Noted Date Resolved Date [...] as of this encounter (statuses as of 06/06/2021) Immunizations Name Administration Dates Next Due COVID-19 mRNA, LNP-s, No Pre serve, 2-Dose Series ([employer]) 12/16/2020,11/25/2020 Pneumococcal Conjugate Vacc, 13 Valent (Prevnar) [...] Sign Reading Time Taken Comments Blood Pressure 154/80 06/06/2021 9:44 AM EDT Pulse 80 06/06/2021 9:44 AM EDT Temperature 36.7 C (98 F) 06/06/2021 9:44 AM EDT Respiratory Rate - - Oxygen Saturation 92% 06/06/2021 9:44 AM EDT Inhaled Oxygen Concentration - - Weight 90.7 kg (200 lb) 06/06/2021 9:44 AM EDT Height - - Body Mass Index 37.79 04/26/2021 9:12 AM EDT documented in this encounter Patient Instructions * Patient Instructions* Josie Ryan PA-C - 06/06/2021 10:03 AM EDT Whole tablet of atenolol documented in this encounter Progress Notes * Josie Ryan PA-C - 06/06/2021 9:51 AM EDT Nursing Notes: Lamont Mantilla EugeniaKRISTIAN ortega 06/06/21 0950 Signed Chief Complaint Patient presents with Re-Check BP f/u, Pt having Colonoscopy on 06/15/21 questionging if needs to stop Plavix Pt is still getting vertigo Taking BP at Home Bp readings Systolic 106-167 Dystonic reading 59-94 The patient has been properly identified by confirmation of name and date of . Pt here today for recheck of BP. Pt states that she has been getting fluctuating blood pressures. Pt denies chest pain, SOB, dizziness, lightheadedness, syncope. She does have some headaches off and on. BP high today. She is taking HCTZ 25 mg daily and atenolol 25 mg daily. She has also had some easy bruising. She would like to have some labs drawn. She also has hx of thyroid nodules. They haven't been checked in a while. Review of patient's allergies indicates: Allergen Reactions Adhesive Tape Sensitive to Aleve [Naproxen] Hives Ivp Dye Hives Latex Other (Please comment) Contact rash Motrin [Ibuprofen] Rash Current Outpatient Medications Medication Sig Dispense Refill Potassium Chloride ER 10 MEQ Oral Tablet Extended Release TAKE 1 TABLET BY MOUTH EVERY DAY 90 Tab 2 hydroCHLOROthiazide 25 MG Oral Tablet (Hydrodiuril) TAKE 1 TABLET BY MOUTH EVERY DAY 90 Tab 3 Atenolol 25 MG Oral Tablet (Tenormin) Take 0.5 Tabs by mouth daily. 90 Tab 3 Clopidogrel Bisulfate 75 MG Oral Tablet (pLAVix) TAKE 1 TABLET BY MOUTH EVERY DAY 90 Tab 1 Nystatin 641953 UNIT/GM External Powder (Nystop) APPLY TOPICALLY TO [...] pain,cramping). for abdominal pain 120 Cap 5 Meclizine HCl 25 MG Oral Tablet (Antivert) TAKE 1 TABLET BY MOUTH ONCE EVERY 6 HOURS NEEDED FOR DIZZINESS/VERTIGO 10 Tab 0 albuterol-ipratropium (DUONEB) 2.5-0.5 MG/3ML nebulizer solution INHALE 3 MLS VIA NEBULIZER EVERY 4 HOURS NEEDED FOR COUGH, SHORTNESS OF BREATH OR WHEEZING. 360 mL 1 zoster vac recomb adjuvanted (SHINGRIX) 50 MCG/0.5ML injection Inject 0.5 mL into a large muscle now and repeat dose in 60 to 180 days 1 Each 1 Cholecalciferol 1000 units Capsule Take 2,000 Units by mouth daily. ondansetron (ZOFRAN) 4 MG Tablet Take 4 mg by mouth every 6 hours as needed for Nausea. Per [facility] ER Dextromethorphan-guaiFENesin (CORICIDIN HBP CONGESTION/COUGH) 10-200 MG CAPS [...] L/min(Oxygen) as directed continuous. 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 BENIGN HYPERTENSION 01/28/2002 Bilateral carpal tunnel syndrome 07/20/2015 COPD (chronic obstructive pulmonary disease) ([facility]) COPD, severe ([facility]) 12/21/2015 COPD, severity to be determined ([facility]) 07/20/2015 Dyslipidemia, goal LDL below 100 10/16/2015 Dyslipidemia, goal LDL below 130 08/22/2015 FAM HX-CARDIOVAS DIS NEC 01/28/2002 Generalized osteoarthritis 08/22/2015 GERD (gastroesophageal reflux disease) 07/20/2015 Hypertrophy of breast 08/31/2003 IBS (irritable bowel syndrome) 07/20/2015 Kidney disease, chronic, stage III (GFR 30-59 ml/min) ([facility]) 10/16/2015 Kidney stone Lumbar degenerative disc disease 02/06/2016 Lumbar facet arthropathy (HCC) 02/06/2016 Lumbar spinal stenosis 02/18/2017 Mixed incontinence [...] Types: Cigarettes Quit date: 10/07/1995 Years since quittin.6 Smokeless tobacco: Never Used Tobacco comment: quit in 1995 Substance and Sexual Activity Alcohol use: No Drug use: No Sexual activity: Not Currently Partners: Male Lifestyle Physical activity Days per week: Not on file Minutes per session: Not on file Stress: Not on file Relationships Social connections Talks on phone: Not on file Gets together: Not on file Attends yarsanism service: Not on file Active member of [...] Use Vaping/E-Cigarette Substances Vaping/E-Cigarette Devices O:Blood pressure 154/80, pulse 80, temperature 36.7 C (98 F), temperature source Tympanic, weight 90.7 kg (200 lb), SpO2 92 %. HEART: regular rate & rhythm, no murmurs and no gallops LUNGS: chest symmetric with normal AP diameter, no chest deformities noted, no chest wall tenderness, lungs clear to auscultation A:HTN, goal below 140/90 (Primary) - Losartan Potassium 25 MG Oral Tablet (Cozaar); Take 1 Tab by mouth daily. Thyroid nodule - US HEAD AND NECK; Future; Expected date: 06/12/2021 Bruising - CBC WITH WBC DIFFERENTIAL AND ANEMIA REFLEX WORKUP; Future; Expected date: 06/06/2021 - BASIC METABOLIC PANEL; Future; Expected date: 06/06/2021 Other orders - Meclizine HCl 25 MG Oral Tablet (Antivert); TAKE 1 TABLET BY MOUTH ONCE EVERY 6 HOURS NEEDED FOR DIZZINESS/VERTIGO Will check some labs. Will US neck. Start cozaar 25 mg daily. Continue to monitor BP. Return in 3 weeks for nurse visit BP check. Bring monitor so we can compare. Any questions/problems, please call.If anything changes, worsens, develops new sx, please call [facility]ATT. Follow Up: Return if symptoms worsen or fail to improve. Josie Ryan PA-C documented in this encounter Nursing Notes * Lamont James LPN - 06/06/2021 9:43 AM EDT Chief Complaint Patient presents with Re-Check BP f/u, Pt having Colonoscopy on 06/15/21 questionging if needs to stop Plavix Pt is still getting vertigo Taking BP at Home Bp readings Systolic 106-167 Dystonic reading 59-94 The patient has been properly identified by confirmation of name and date of . documented in this encounter Plan of Treatment Upcoming Encounters Date Type Specialty Care Team Description 06/15/2021 Procedure Only Endoscopy Shakila Rocha, DO [address] [facility] [place] [address] [phone] 06/19/2021 Imaging Radiology 06/22/2021 [facility] Visit [facility] Corrina Layne RN 132 [facility] [place] [address] [phone] 10/04/2021 [facility] [address] [phone] Pending Results Name Type Priority Associated Diagnoses Date /Time CBC WITH WBC DIFFERENTIAL AND ANEMIA REFLEX WORKUP Lab Routine Bruising 06/06/2021 10:10 AM EDT BASIC METABOLIC PANEL Lab Routine Bruising 06/06/2021 10:10 AM EDT Scheduled Orders Name Type Priority Associated Diagnoses Orde r Schedule US HEAD AND NECK Medical Imaging Routine Thyroid nodule Expected: 06/12/2021, Expires: 07/06/2022 CBC WITH WBC DIFFERENTIAL AND ANEMIA REFLEX WORKUP Lab Routine Bruising Expected: 06/06/2021 (Approximate), Expires: 06/06/2022 BASIC METABOLIC PANEL Lab Routine Bruising Expected: 06/06/2021 (Approximate), Expires: 06/06/2022 Health Maintenance Due Date Last Done Comments [...] encounter Visit Diagnoses Diagnosis HTN, goal below 140/90- Primary Unspecified essential hypertension Thyroid nodule Nontoxic uninodular goiter Bruising Contusion of unspecified site documented in this encounter Advance Directives Documents on File Type Date Recorded 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
--- OUTSIDE RECORDS SUMMARY | 2023-06-07 07:56 | External Medical Summary | Summary of Care ---
Author Name Unknown Organization [place] [address] Care Team Providers Care Clinical Review Nurse Name Role Phone Leanne Cardoza MD Primary Care Provide r Reason for Visit * Reason Comments eRx-Medication Refill Encounter Details Date Type Department Care Team Description 04/14/2021 Refill Family [address] [address] Leanne Cardoza MD [address] [place] [address] [place], [place] [id number] Allergies Active Allergy Reactions Severity Noted Date Comments Adhesive Tape 06/29/2003 Sensitive to Naproxen Hives 05/28/2015 Ivp Dye Hives 08/20/2000 Latex Other (Please comment) 01/05/2015 Contact rash Ibuprofen Rash 01/05/2015 documented as of this encounter (statuses as of 04/15/2021) Medications Medication Sig Dispensed Refills Start Date [...] 6 hours as needed for Nausea. Per [facility] ER 0 06/09/2019 Active zoster [...] 09/10/2020 Active Dicyclomine HCl 10 MG Oral CapsuleIndications :Irritable bowel syndrome with both constipation and diarrhea Take 1 Cap by mouth 4 times a day as needed (abdominal pain, cramping). for abdominal pain 120 Cap 5 12/22/2020 Active Meclizine HCl 25 MG Oral Tablet (Antivert) TAKE 1 TABLET BY MOUTH ONCE EVERY 6 HOURS NEEDED FOR DIZZINESS/VERTI GO 10 Tab 0 12/22/2020 Active Atorvastatin Calcium [...] DAY 90 Tab 1 03/17/2021 Active Nystatin 325778 UNIT/GM External Powder (Nystop)Indication s:Candidal skin infection APPLY TOPICALLY TO AFFECTED AREA 3 TIMES A DAY. 45 g 1 03/17/2021 Active Atenolol 25 MG Oral Tablet (Tenormin)Indicati ons:HTN, goal below 140/90 Take 0.5 Tabs by mouth daily. 90 Tab 3 04/12/2021 Active hydroCHLOROthiazid e 25 MG Oral Tablet (Hydrodiuril) TAKE 1 TABLET BY MOUTH EVERY DAY 90 Tab 3 04/15/2021 Active hydroCHLOROthiazid e 25 MG Oral Tablet (HYDRODIURIL) TAKE 1 TABLET BY MOUTH EVERY DAY 90 Tab 2 07/24/2020 1 Discontinued documented as of this encounter (statuses as of 04/15/2021) Active Problems Problem Noted Date History of [...] as of this encounter (statuses as of 04/15/2021) Resolved Problems Problem Noted Date Resolved Date [...] as of this encounter (statuses as of 04/15/2021) Immunizations Name Administration Dates Next Due COVID-19 [...] encounter Miscellaneous Notes * Telephone Encounter - Zhane Millan RPh - 04/15/2021 8:22 AM EDT Signed Prescriptions: Disp Refills hydroCHLOROthiazide 25 MG Oral Tablet (Hyd*90 Tab 3 Sig: TAKE 1 TABLET BY MOUTH EVERY DAYAuthorizing Provider: LEANNE CARDOZA User: ZHANE MILLAN documented in this encounter Plan of Treatment Upcoming Encounters Date Type Specialty Care Team Description 04/26/2021 Office Visit Family Medicine Jade Castillo MD [address] [place] [address] [place] [address] 05/11/2021 Home Visit [facility] Corrina Layne RN [address] [place] [address] [phone] 06/15/2021 Procedure Only Endoscopy Shakila Rocha, DO [address] [place] [address] [phone] 10/04/2021 Office Visit Dermatology Marie Conrad MD [facility] [place] [address] [phone] Health Maintenance Due Date Last Done Comments [...] Documents on File Type Date Recorded 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
--- OUTSIDE RECORDS SUMMARY | 2023-06-07 07:56 | External Medical Summary | Summary of Care ---
Author Name Unknown Organization [place] [address] Care Team Providers Care Roller Maker Name Role Phone Yariel Cardoza MD Primary Care Provide r Encounter Details Date Type Department Care Team Description 06/02/2021 Orders Only Gastroenterology, [facility] [address] [place] [address] Shakila Rocha DO 132 [facility] [place] [address] Pre-procedure lab exam* Allergies Active Allergy Reactions Severity Noted Date Comments Adhesive Tape 06/29/2003 Sensitive to Naproxen Hives 05/28/2015 Ivp Dye Hives 08/20/2000 Latex Other (Please comment) 01/05/2015 Contact rash Ibuprofen Rash 01/05/2015 documented as of this encounter (statuses as of 06/02/2021) Medications Medication Sig Dispensed Refills Start Date [...] [facility] ER 0 06/09/2019 Active zoster [...] DAY 90 Tab 1 03/17/2021 Active Nystatin 068972 UNIT/GM External Powder (Nystop)Indications:C andidal skin infection [...] as of this encounter (statuses as of 06/02/2021) Active Problems Problem Noted Date History of [...] as of this encounter (statuses as of 06/02/2021) Resolved Problems Problem Noted Date Resolved Date [...] as of this encounter (statuses as of 06/02/2021) Immunizations Name Administration Dates Next Due COVID-19 mRNA, LNP-s, No Pre serve, 2-Dose Series ([employer]) 12/16/2020,11/25/2020 Pneumococcal Conjugate Vacc, 13 Valent (Prevnar) [...] Encounters Date Type Specialty Care Team Description 06/05/2021 Office Visit Family Medicine Jade Castillo MD [address] [place] [address] [place] [address] [phone] 06/15/2021 Procedure Only Endoscopy Shakila Rocha DO 132 [facility] [place] [address] [phone] 06/22/2021 [facility] Corrina Layne RN 132 [facility] [place] [address] [phone] 10/04/2021 Office Visit Dermatology Marie Conrad MD [address] [place] [address], [place] [address] [phone] Scheduled Orders Name Type Priority Associated Diagnoses Orde r Schedule SARS-COV-2 (COVID-19), NAAT Lab Routine Pre-procedure lab exam Expected: 06/02/2021, Expires: 06/02/2022 Health Maintenance Due Date Last Done Comments [...] as of this encounter Visit Diagnoses Diagnosis Pre-procedure lab exam- Primary Pre-procedural laboratory examination documented in this encounter Advance Directives Documents on File Type Date Recorded Patient Photographic Printer Expl 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
--- OUTSIDE RECORDS SUMMARY | 2023-06-07 07:56 | External Medical Summary | Summary of Care ---
Author Name Unknown Organization [place] [address] Care Team Providers Care Cycle Touring Guide Name Role Phone Yariel Cardoza MD Primary Care Provide r Reason for Visit * Reason Comments eRx-Medication Refill Encounter Details Date Type Department Care Team Description 05/15/2021 Refill Internal Medicine [address] [place] [id number] Yariel Cardoza MD [address] [place] [address] [place] [id number] HTN, goal below 140/90 Allergies Active Allergy Reactions Severity Noted Date Comments Adhesive Tape 06/29/2003 Sensitive to Naproxen Hives 05/28/2015 Ivp Dye Hives 08/20/2000 Latex Other (Please comment) 01/05/2015 Contact rash Ibuprofen Rash 01/05/2015 documented as of this encounter (statuses as of 05/16/2021) Medications Medication Sig Dispensed Refills Start Date [...] 6 hours as needed for Nausea. Per [facility] ER 0 06/09/2019 Active zoster [...] DAY 90 Tab 1 03/17/2021 Active Nystatin 334511 UNIT/GM External Powder (Nystop)Indications:C andidal skin infection [...] as of this encounter (statuses as of 05/16/2021) Active Problems Problem Noted Date History of [...] as of this encounter (statuses as of 05/16/2021) Resolved Problems Problem Noted Date Resolved Date [...] as of this encounter (statuses as of 05/16/2021) Immunizations Name Administration Dates Next Due COVID-19 mRNA, LNP-s, No Pre serve, 2-Dose Series ([employer]) 12/16/2020,11/25/2020 Pneumococcal Conjugate Vacc, 13 Valent (Prevnar) [...] Telephone Encounter - Jame Tavarez RPh - 05/16/2021 8:12 AM EDT Refused Prescriptions: Disp Refills amLODIPine Besylate 2.5 MG Oral Tablet (No*90 Tab 3 Sig: TAKE 1TABLET BY MOUTH EVERY DAYRefused By: Beverly TAVAREZ for Refusal: Other (comment below)Reason for Refusal Comment: not active * Telephone Encounter - Jame Tavarez RPh - 05/16/2021 8:10 AM EDT Pending Prescriptions: Disp Refills amLODIPine Besylate 2.5 MG Oral Tablet (N*90 Tab 3 Sig: TAKE 1 TABLET BY MOUTH EVERY DAY Last Office/Telemedicine Visit: 12/22/2020 Next Office Visit: No Future Appointments If no future appointments scheduled, and last appointment is greater than a year ago, please schedule patient for a follow-up appointment Last date the medication was ordered: Pharmacy: [id number]- [place] Is this request for a controlled substance?No Urine Drug Screen:No results found for this or any previous visit. Patient Phone Numbers Labs: Lab Results Component Value Date/Time CREAT 0.9 12/26/2020 08:53 AM CREAT 0.87 09/22/2020 CREAT 0.9 05/06/2020 10:15 AM POTASSIUM 4.4 12/26/2020 08:53 AM POTASSIUM 5.2 (A) 09/22/2020 POTASSIUM 4.1 05/06/2020 10:15 AM TSH 1.31 12/26/2020 08:53 AM TSH 0.69 04/17/2017 10:53 AM LDLCALC 72 12/26/2020 08:53 AM LDLCALC 35 09/20/2020 LDLCALC 51 07/28/2018 02:30 PM LDLDIRECT 70 08/18/2019 11:10 AM ALT 22 05/06/2020 10:15 AM HGBA1C 6.0 (H) 12/26/2020 08:53 AM HGBA1C 5.7 03/19/2017 08:05 AM documented in this encounter Plan of Treatment Upcoming Encounters Date Type Specialty Care Team Description 05/29/2021 Office Visit Family Medicine Jade Castillo MD [address] [place] [address] [place] [address] [phone] 06/15/2021 Procedure Only Endoscopy Shakila Rocha DO [address] [place] [address] [phone] 06/22/2021 Home Visit [facility] Corrina Layne RN [address] [place] [address] [phone] 10/04/2021 Office Visit Dermatology Marie Conrad MD [address] [place] [address] [place] [address] [phone] Health Maintenance Due Date Last Done Comments [...] Documents on File Type Date Recorded Patient Inward Toll Operator Expl 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
--- OUTSIDE RECORDS SUMMARY | 2023-06-07 07:56 | External Medical Summary ---
Author Name Unknown Address Unknown Organization K01:LAB[facility]ATORY [facility] [place] - [address] [address] Laboratory Report Ordering Provider Test Date Status TIMOTHY TYLER 06/06/2021 10:10:04 Final Observation Date Value Abnormality Reference (Units ) Status WBC, Total 06/06/2021 10:10:04 7.98 4.00-10.8 0 (K/uL) Final RBC 06/06/2021 10:10:04 5.02 3.85-5.15 (M/uL) Final Hemoglobin 06/06/2021 10:10:04 14.9 12.0-15.3 (g/dL) Final Performing Location LABORATORY C - [address] [place] [address]
--- OUTSIDE RECORDS SUMMARY | 2023-06-07 07:56 | External Medical Summary ---
Author Name Unknown Address Unknown Organization [id number]:LABORATORY [facility] [place] - [address] [facility] [place] [address] Laboratory Report Ordering Provider Test Date Status TIMOTHY TYLER 06/06/2021 10:10:04 Final Observation Date Value Abnormality Reference (Units ) Status SYNC LEUKOCYTES IN BLOOD BY AUTOMATED COUNT 06/06/2021 10:10:04 7.98 4.00-10.80 (K/uL) Final Segs 06/06/2021 10:10:04 73.6 40.0-75.0 (%) Final Lymphs % 06/06/2021 10:10:04 14.7 Below low normal 18.0-42.0 (%) Final Monos 06/06/2021 10:10:04 8.9 1.0-11.0 (%) Final Eosinophils 06/06/2021 10:10:04 1.6 0.0-6.0 (%) Final Basos 06/06/2021 10:10:04 0.6 0.0-2.0 (%) Final Immature Granulocyte, Percent 06/06/2021 10:10:04 0.6 0.0-2.0 (%) Final Absolute Segs 06/06/2021 10:10:04 5.87 1.80-7.70 (K/uL) Final Lymphs, absolute 06/06/2021 10:10:04 1.17 1.00-4.80 (K/ul) Final Monos, Abs 06/06/2021 10:10:04 0.71 0.00-1.10 (K/uL) Final Eos, Abs 06/06/2021 10:10:04 0.13 0.00-0.70 (K/uL) Final Basos, Abs 06/06/2021 10:10:04 0.05 0.00-0.20 (K/uL) Final Immature Granulocytes, Number 06/06/2021 10:10:04 0.05 0.00-0.20 (K/uL) Final Performing Location LABORATORY [facility] [place] - [facility] [place] [address]
--- OUTSIDE RECORDS SUMMARY | 2023-06-07 07:56 | External Medical Summary | Summary of Care ---
Author Name Unknown Organization [place] [address] Care Team Providers Care Slice Plug Cutter Operator Name Role Phone Yariel Cardoza MD Primary Care Provide r Reason for Visit * Reason Comments Re-Check Encounter Details Date Type Department Care Team Description 04/26/2021 Office Visit Family Medicine [address] [place] [address] Jade Castillo MD [address] [place] [address] [place] [address] HTN, goal below 140/90* Allergies Active Allergy Reactions Severity Noted Date Comments Adhesive Tape 06/29/2003 Sensitive to Naproxen Hives 05/28/2015 Ivp Dye Hives 08/20/2000 Latex Other (Please comment) 01/05/2015 Contact rash Ibuprofen Rash 01/05/2015 documented as of this encounter (statuses as of 04/26/2021) Medications Medication Sig Dispensed Refills Start Date [...] 6 hours as needed for Nausea. Per [facility] ER 0 06/09/2019 Active zoster [...] DAY 90 Tab 1 03/17/2021 Active Nystatin 294683 UNIT/GM External Powder (Nystop)Indications:C andidal skin infection [...] as of this encounter (statuses as of 04/26/2021) Active Problems Problem Noted Date History of [...] as of this encounter (statuses as of 04/26/2021) Resolved Problems Problem Noted Date Resolved Date [...] as of this encounter (statuses as of 04/26/2021) Immunizations Name Administration Dates Next Due COVID-19 mRNA, LNP-s, No Pre serve, 2-Dose Series ([employer]) 12/16/2020,11/25/2020 Pneumococcal Conjugate Vacc, 13 Valent (Prevnar) [...] Sign Reading Time Taken Comments Blood Pressure 150/81 04/26/2021 9:23 AM EDT Pulse 56 04/26/2021 9:23 AM EDT Temperature 36.8 C (98.2 F) 04/26/2021 9:12 AM ED T Respiratory Rate 16 04/26/2021 9:12 AM EDT Oxygen Saturation 93% 04/26/2021 9:12 AM EDT Inhaled Oxygen Concentration - - Weight 91.2 kg (201 lb) 04/26/2021 9:12 AM EDT Height 154.9 cm (5' 1") 04/26/2021 9:12 AM EDT Body Mass Index 37.98 04/26/2021 9:12 AM EDT documented in this encounter Progress Notes * Jade Castillo MD - 04/26/2021 9:17 AM EDT Subjective: HPI: Jayla Hayes is a 75 year old female with hx of COPD, HTN, HLD, thyroid nodules(benign FNA), urinary incontinence, depression, DDD, constipation, b/l breast reduction (2004), depression, R vertebral aa stenosis, Schatzki ring of the esophagus, TIA, prediabetesseenfor HTN: - on HCTZ 25mg daily and atenolol 12.5mg daily ---- was on amlodipine 2.5mg daily & lasix prn: both discontinued - has been having intermittent light headedness and dizziness (had the episode when she stood up from sitting) - denied any palpitation, CP - denied any NC or cardiac arrthymia - home BP readings: 120-140s systolic but last few days 160s/80s Patient Active Problem List Diagnosis Code Slow [...] Current Outpatient Medications Medication Sig Dispense Refill hydroCHLOROthiazide 25 MG Oral Tablet (Hydrodiuril) TAKE 1 TABLET BY MOUTH EVERY DAY 90 Tab 3 Atenolol 25 MG Oral Tablet (Tenormin) Take 0.5 Tabs by mouth daily. 90 Tab 3 Clopidogrel Bisulfate 75 MG Oral Tablet (pLAVix) TAKE 1 TABLET BY MOUTH EVERY DAY 90 Tab 1 Nystatin 220546 UNIT/GM External Powder (Nystop) APPLY TOPICALLY TO [...] BY MOUTH EVERY DAY 90 Tab 2 albuterol-ipratropium (DUONEB) 2.5-0.5 MG/3ML nebulizer solution INHALE [...] 6 hours as needed for Nausea. Per [facility] ER Dextromethorphan-guaiFENesin (CORICIDIN HBP CONGESTION/COUGH) [...] syndrome 07/20/2015 COPD (chronic obstructive pulmonary disease) ([facility]) COPD, severe ([facility]) 12/21/2015 COPD, severity to be determined ([facility]) 07/20/2015 Dyslipidemia, goal LDL below 100 10/16/2015 Dyslipidemia, goal LDL below 130 08/22/2015 FAM HX-CARDIOVAS DIS NEC 01/28/2002 Generalized osteoarthritis 08/22/2015 GERD (gastroesophageal reflux disease) 07/20/2015 Hypertrophy of breast 08/31/2003 IBS (irritable bowel syndrome) 07/20/2015 Kidney disease, chronic, stage III (GFR 30-59 ml/min) ([facility]) 10/16/2015 Kidney stone Lumbar degenerative disc disease 02/06/2016 Lumbar facet arthropathy ([facility]) 02/06/2016 Lumbar spinal stenosis 02/18/2017 Mixed incontinence urge and stress (male)(female) 07/20/2015 Multiple thyroid nodules 09/09/2016 Obesity, Class II, BMI 35.0-39.9, with comorbidity (see actual BMI) 01/19/2016 Primary osteoarthritis of right knee 02/18/2017 Pulmonary hypertension ([facility]) 05/07/2017 Reflux esophagitis 01/28/2002 Slow transit constipation 07/20/2015 Thyroid nodule 09/05/2016 Tubular adenoma of colon 07/20/2015 Urge incontinence 05/03/2004 Urinary, incontinence, stress female 02/21/2016 Past Surgical History: Procedure Laterality Date ARTHROCENT ASP &/OR INJ MAJOR JX/BURSA W/O US 04/06/2019 ARTHROCENTESIS OR INJECTION MAJOR JOINT performed by Todd Kunz, DO at OR [facility] BIOPSY OF BREAST, OPEN 1971 benign, right, removed nipple for blocked milk glands BIOPSY OF BREAST, OPEN 1976 left, benign BREAST SURGERY PROCEDURE NEC bilateral Breast Reduction 09/20/03 BUNION CORRECTED WITH DOUBLE OSTEOTOMY 1991 right foot COLONOSCOPY, DIAGNOSTIC (RECTUM) 03/08/2015 adenomatous polyps, repeat 3 yrs/[facility] COLONOSCOPY, DIAGNOSTIC (RECTUM) 03/26/2018 adenomatous & serrated adenomatous polyps, repeat 3 yrs/[facility] EGD, FLEXIBLE, DIAGNOSTIC 01/21/2015 sm HH/[facility] EGD, FLEXIBLE, DIAGNOSTIC 07/22/2018 mild gastritis, Schatzki ring, duodenal polyp/[facility] ESOPHAGOSCOPY RIGID TRANSORAL HYPOPHARYNX ESOPHAGUS 2004 repair of Zenker's diverticulum [facility] DIGITAL BREAST TOMOSYNTHESIS; BILATERAL Bilateral 12/2019 category 2 benign, repeat 1 year LAPAROSCOPY; CHOLECYSTECTOMY 06/04/2016 laparoscopic cholecystectomy , [facility] Dr. Nile Faulkner MISCELLANEOUS ORDER 2001 implant - right [...] Relation Age of Onset Heart Disorder Father NC age 55 Heart Disorder Mother CAD, 84 in '02 Arthritis Mother in fingers Diabetes Brother half brother Stroke Aunt (Unspecified) 80's Stroke Uncle (Unspecified) 60's Social History Tobacco Use Smoking status: Former Smoker Packs/day: 1.75 Years: 38.00 Pack years: 66.50 Types: Cigarettes Quit date: 10/07/1995 Years since quittin.5 Smokeless tobacco: Never Used Tobacco comment: quit in 1995 Substance Use Topics Alcohol use: No Vaping/E-Cigarette Use Vaping/E-Cigarette Substances Vaping/E-Cigarette Devices RECENT LABS: Results for orders placed or performed in visit on 12/26/20 BASIC METABOLIC PANEL Result Value Ref Range BUN 17 6 - 20 mg/dL Creatinine 0.9 0.5 - 1.0 mg/dL Estimated Glomerular Filtration Rate 61.9 >=60.0 mL/min Sodium 142 135 - 146 mmol/L Potassium 4.4 3.5 - 5.1 mmol/L Chloride 101 98 - 107 mmol/L CO2 29 22 - 32 mmol/L Anion Gap 12 7 - 15 mmol/L Glucose 99 70 - 120 mg/dL Calcium 9.7 8.4 - 10.2 mg/dL LIPID PANEL WITHOUT DIRECT LDL Result Value Ref Range Triglycerides 109 <=174 mg/dL Cholesterol 135 <200 mg/dL HDL Cholesterol 41 (L) >49 mg/dL Non-HDL Cholesterol 94 <=159 mg/dL LDL Cholesterol 72 <=129 mg/dL HEMOGLOBIN A1C Result Value Ref Range Hemoglobin A1C 6.0 (H) 4.0 - 5.6 % Estimated Average Glucose 126 (H) <126 mg/dL TSH WITH FREE T4 IF INDICATED Result Value Ref Range TSH 1.31 0.27 - 4.20 uIU/mL CBC Result Value Ref Range WBC 6.82 [...] WBCs Plt 195 140 - 400 K/uL AUTOMATED ANALYZER WBC DIFFERENTIAL Result Value Ref Range WBC 6.82 4.00 - 10.80 K/uL Neutrophils % 66.1 40.0 - 75.0 % Lymphocytes % 20.5 18.0 - 42.0 % Monocytes % 9.5 1.0 - 11.0 % Eosinophils % 2.9 0.0 - 6.0 % Basophils % 0.6 0.0 - 2.0 % Immature Granulocyte % 0.4 0.0 - 2.0 % Absolute Neutrophils 4.50 1.80 - 7.70 K/uL Absolute Lymphocytes 1.40 1.00 - 4.80 K/ul Absolute Monocytes 0.65 0.00 - 1.10 K/uL Absolute Eosinophils 0.20 0.00 - 0.70 K/uL Absolute Basophils 0.04 0.00 - 0.20 K/uL Absolute Immature Granulocytes 0.03 0.00 - 0.20 K/uL Review of Systems -Per HPI OBJECTIVE: BP 150/81 | Pulse 56 | Temp 36.8 C (98.2 F) (Tympanic) | Resp 16 | Ht (!) 1.549 m (5' 1") | Wt 91.2 kg (201 lb) | SpO2 93% | BMI 37.98 kg/m | BSA 1.98 m PHYSICAL EXAM: Vitals are reviewed General:. NAD, well developed HEENT:. Normal Conjunctiva, EOMI MSK:. Normal gait Psych:. AAOx3, normal affect ASSESSMENT/PLAN: HTN, goal below 140/90 (Primary) - Bp improved with sitting - at this time will continue current meds regimen --- dizziness and light headedness likely 2/2 orthostatic hypotension - advised the pt to increase water - c/w daily BP check and RTC in 1 month --- if BP elevated then might consider losartan Follow Up: Return in about 1 month (around 05/27/2021). Jade Castillo MD Family medicine, [place] [address] documented in this encounter Nursing Notes * Courtney Montiel LPN - 04/26/2021 9:10 AM EDT Pt here for 2 week check up States BP has been running high - was 200/99 this morning States has been getting dizziness Has red nile on forehead x couple weeks Denies any pain or change in size States it is itchy Has used itch cream - helps documented in this encounter Plan of Treatment Upcoming Encounters Date Type Specialty Care Team Description 05/11/2021 Home Visit [facility] Corrina Layne, RN [address] [place] [address] [phone] 05/29/2021 Office Visit Family Medicine Jade Castillo MD [address] [place] [address] [place] [address] [phone] 06/15/2021 Procedure Only Endoscopy Shakila Rocha, DO [address] [place] [address] [phone] 10/04/2021 Office Visit Dermatology Marie Conrad MD [address] [place], [place] [address] [address] [phone] Health Maintenance Due Date Last Done Comments [...] goal below 140/90- Primary Unspecified essential hypertension documented in this encounter Advance Directives Documents on File Type Date Recorded 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
--- OUTSIDE RECORDS SUMMARY | 2023-06-07 07:56 | External Medical Summary | Summary of Care ---
Author Name Unknown Organization [facility] [address] Care Team Providers Care Professor Of Mathematics Name Role Phone Yariel Cardoza MD Primary Care Provide r Reason for Visit * Reason Comments eRx-Medication Refill Encounter Details Date Type Department Care Team Description 06/03/2021 Refill Internal Medicine [address] [place] [id number] Yariel Cardoza MD [address] [place] [address] [place] [id number] Allergies Active Allergy Reactions Severity Noted Date Comments Adhesive Tape 06/29/2003 Sensitive to Naproxen Hives 05/28/2015 Ivp Dye Hives 08/20/2000 Latex Other (Please comment) 01/05/2015 Contact rash Ibuprofen Rash 01/05/2015 documented as of this encounter (statuses as of 06/05/2021) Medications Medication Sig Dispensed Refills Start Date [...] hours as needed for Nausea. Per [facility] ER 0 06/09/2019 Active zoster vac recomb [...] DAY 90 Tab 1 03/17/2021 Active Nystatin 160777 UNIT/GM External Powder (Nystop)Indication s:Candidal skin infection [...] EVERY DAY 90 Tab 2 06/05/2021 Active Potassium Chloride ER 10 MEQ Oral Tablet Extended Release TAKE 1 TABLET BY MOUTH EVERY DAY 90 Tab 2 09/10/2020 1 Discontinued documented as of this encounter (statuses as of 06/05/2021) Active Problems Problem Noted Date History of [...] as of this encounter (statuses as of 06/05/2021) Resolved Problems Problem Noted Date Resolved Date [...] as of this encounter (statuses as of 06/05/2021) Immunizations Name Administration Dates Next Due COVID-19 mRNA, LNP-s, No Pre serve, 2-Dose Series ([employer]) 12/16/2020,11/25/2020 Pneumococcal Conjugate Vacc, 13 Valent (Prevnar) [...] encounter Miscellaneous Notes * Telephone Encounter - Dusty Chanel RPh - 06/05/2021 10:19 AM EDT Signed Prescriptions: Disp Refills Potassium Chloride ER 10 MEQ Oral Tablet E*90 Tab 2 Sig: TAKE 1 TABLET BY MOUTH EVERY DAYAuthorizing Provider: Nithin CASTILLO User: DUSTY CHANEL documented in this encounter Plan of Treatment Upcoming Encounters Date Type Specialty Care Team Description 06/05/2021 Office Visit Family Medicine Jade Castillo MD [address] [place] [address] [place] [address] [phone] 06/15/2021 Procedure Only Endoscopy Shakila Rocha, DO 132 [facility] [place] [address] [phone] 06/22/2021 Home Visit [facility] Corrina Layne RN 132 [facility] [place] [address] [phone] 10/04/2021 Office Visit [facility]atology [facility] [address] [facility] [address] [phone] Health Maintenance Due Date Last Done Comments [...] Documents on File Type Date Recorded Patient Explosives Engineer Expl 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
--- OUTSIDE RECORDS SUMMARY | 2023-06-07 07:56 | External Medical Summary ---
Author Name Unknown Address Unknown Organization K01:[facility] [place] [address] [place] [address] Laboratory Report Ordering Provider Test Date Status SYDNEY CHRISTIE 06/06/2021 10:10:04 Final Observation Date Value Abnormality Reference (Units ) Status Vitamin B12 06/06/2021 10:10:04 344 232-1,24 5 (pg/mL) Final Performing Location [facility] [place] [address] [place] [address]
--- OUTSIDE RECORDS SUMMARY | 2023-06-07 07:56 | External Medical Summary | Summary of Care ---
Author Name Unknown Organization [place] [address] Care Team Providers Care Gyro Compass Tester Name Role Phone Yariel Cardoza MD Primary Care Provide r Reason for Visit * Reason Comments Outpatient Testing Encounter Details Date Type Department Care Team Description 06/06/2021 Laboratory Laboratory [address] [place] [address] [place] [id number] Encounter for long-term (current) use of medications; Bruising Allergies Active Allergy Reactions Severity Noted [...] DAY 90 Tab 1 03/17/2021 Active Nystatin 145599 UNIT/GM External Powder (Nystop)Indications:C andidal skin infection [...] mRNA, LNP-s, No Pre serve, 2-Dose Series ([employer]) 12/16/2020,11/25/2020 Pneumococcal Conjugate Vacc, 13 Valent (Prevnar) [...] Procedure Only Endoscopy Shakila Rocha DO 132 [facility] [place] [address] [phone] 06/19/2021 Imaging Radiology 06/22/2021 Home Visit [facility] Corrina Layne RN 132 [facility] [place] [address] [phone] 10/04/2021 Office Visit Dermatology Marie Conrad MD [address] [place] [address] [phone] Pending Results Name Type Priority Associated Diagnoses Date /Time VITAMIN B12 Lab Routine Encounter for long-term (current) use of medications 06/06/2021 10:10 AM EDT CBC WITH WBC DIFFERENTIAL AND ANEMIA REFLEX WORKUP Lab Routine Bruising 06/06/2021 10:10 AM EDT BASIC METABOLIC PANEL Lab Routine Bruising 06/06/2021 10:10 AM EDT ANEMIA CBC Lab Routine Bru[place] 06/06/2021 10:10 AM EDT AUTOMATED ANALYZER WBC DIFFERENTIAL Lab Routine [place] 06/06/2021 10:10 AM EDT ANEMIA REFLEX CHEMISTRY HOLD Lab Routine [place] 06/06/2021 10:10 AM EDT Health Maintenance Due Date Last Done [...] Diagnosis Encounter for long-term (current) use of medications Encounter for long-term (current) use of other medications Bruising Contusion of unspecified site documented in this encounter Advance Directives Documents on File Type Date Recorded Patient Middleware Administrator Expl 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
--- OUTSIDE RECORDS SUMMARY | 2023-06-07 07:56 | External Medical Summary | Summary of Care ---
Author Name Unknown Organization [place] [address] Care Team Providers Care Closing Coordinator Name Role Phone Yariel Cardoza MD Primary Care Provide r Encounter Details Date Type Department Care Team Description 05/31/2021 Orders Only Gastroenterology, [facility] [address] [facility] [place] [address] Shakila Rocha, 132 [facility] [place] [address] History of colonic polyps* Allergies Active Allergy Reactions Severity Noted Date Comments Adhesive Tape 06/29/2003 Sensitive to Naproxen Hives 05/28/2015 Ivp Dye Hives 08/20/2000 Latex Other (Please comment) 01/05/2015 Contact rash Ibuprofen Rash 01/05/2015 documented as of this encounter (statuses as of 05/31/2021) Medications Medication Sig Dispensed Refills Start Date [...] 6 hours as needed for Nausea. Per [facility] ER 0 06/09/2019 Active zoster vac [...] DAY 90 Tab 1 03/17/2021 Active Nystatin 264298 UNIT/GM External Powder (Nystop)Indications:C andidal skin infection [...] as of this encounter (statuses as of 05/31/2021) Active Problems Problem Noted Date History of [...] as of this encounter (statuses as of 05/31/2021) Resolved Problems Problem Noted Date Resolved Date [...] as of this encounter (statuses as of 05/31/2021) Immunizations Name Administration Dates Next Due COVID-19 mRNA, LNP-s, No Pre serve, 2-Dose Series ([employer]) 12/16/2020,11/25/2020 Pneumococcal Conjugate Vacc, 13 Valent (Prevnar) [...] Office Visit Family Medicine Jade Castillo MD [address] [place] [address] [place] [address] [phone] 06/15/2021 Procedure Only Endoscopy [facility] [address] [phone] 06/22/2021 [facility] [address] [phone] 10/04/2021 Office Visit Dermatology Marie Conrad MD [address] [place] [address], [place] [address] [phone] Scheduled Orders Name Type Priority Associated Diagnoses Orde r Schedule COLONOSCOPY, DIAGNOSTIC (RECTUM) Procedures Routine History of colonic polyps Ordered: 05/31/2021 Health Maintenance Due Date Last Done Comments [...] as of this encounter Visit Diagnoses Diagnosis History of colonic polyps- Primary Personal history of colonic polyps documented in this encounter Advance Directives Documents on File Type Date Recorded 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
--- OUTSIDE RECORDS SUMMARY | 2023-06-07 07:56 | External Medical Summary ---
Author Name Unknown Address Unknown Organization K01:[facility] [place] - [address] [place] [address] Laboratory Report Ordering Provider Test Date Status TIMOTHY TYLER 06/06/2021 10:10:04 Final Observation Date Value Abnormality Reference (Units ) Status BUN 06/06/2021 10:10:04 15 6-20 (mg/dL) Final Creatinine 06/06/2021 10:10:04 0.8 0.5-1.0 (mg/dL) Final Glomerular filtration rate/1.73 sq M.predicted [Volume Rate/Area] in Serum, Plasma or Blood by Creatinine-based formula (CKD-EPI) 06/06/2021 10:10:04 73.6 >=60.0 (mL/min) Final Performing Location [facility] [place] - [address] [place] [address]
--- OUTSIDE RECORDS SUMMARY | 2023-06-07 07:57 | External Medical Summary | Summary of Care ---
Author Name Unknown Organization [place] [address] Care Team Providers Care Journeyman Plumber Name Role Phone Yariel Cardoza MD Primary Care Provide r Reason for Visit * Reason Onset Date Comments Appointment 03/27/2021 Encounter Details Date Type Department Care Team Description 03/27/2021 Telephone [facility] [address] [facility] [address] [facility], Scheduling [address] [place] [address] Appointment Allergies Active Allergy Reactions Severity Noted Date Comments Adhesive Tape 06/29/2003 Sensitive to Naproxen Hives 05/28/2015 Ivp Dye Hives 08/20/2000 Latex Other (Please comment) 01/05/2015 Contact rash Ibuprofen Rash 01/05/2015 documented as of this encounter (statuses as of 03/27/2021) Medications Medication Sig Dispensed Refills Start Date [...] 2,000 Units by mouth daily. 0 Active tamsulosin (FLOMAX) 0.4 MG Capsule Take 0.4 mg by mouth daily. Per [facility] ER 0 06/09/2019 Active ondansetron (ZOFRAN) 4 MG Tablet Take 4 mg by mouth every 6 hours as needed for Nausea. Per [facility] ER 0 06/09/2019 Active zoster vac recomb adjuvanted (SHINGRIX) 50 MCG/0.5ML injectionIndication s:Need for vaccination for zoster Inject 0.5 mL into a large muscle now and repeat dose in 60 to 180 days 1 Each 1 03/03/2020 Active Probiotic Product ([employer] ADV PROBIOTIC GUMMIES) CHEW Take 2 Gum Dosing Unit by mouth. 0 Active furosemide (LASIX) 20 MG TabletIndications:B ilateral edema of lower extremity,Pulmonary hypertension (HCC) TAKE 1 TABLET BY MOUTH DAILY NEEDED (SWELLING). FOR FLUID ACCUMULATION OR WEIGHT GAIN 30 Tab 5 03/17/2020 Active albuterol-ipratropi um (DUONEB) 2.5-0.5 MG/3ML nebulizer solutionIndications :COPD, severe (HCC) INHALE 3 MLS VIA NEBULIZER EVERY 4 HOURS NEEDED FOR COUGH, SHORTNESS OF BREATH OR WHEEZING. 360 mL 1 04/11/2020 Active amLODIPine (NORVASC) 2.5 MG TabletIndications:H TN, goal below 140/90 TAKE 1 TABLET BY MOUTH EVERY DAY 90 Tab 3 04/30/2020 Active hydroCHLOROthiazide 25 MG Oral Tablet (HYDRODIURIL) TAKE 1 TABLET BY MOUTH EVERY DAY 90 Tab 2 07/24/2020 Active Potassium Chloride ER 10 MEQ Oral Tablet Extended Release TAKE 1 TABLET BY MOUTH EVERY DAY 90 Tab 2 09/10/2020 Active Amitriptyline HCl 25 MG Oral Tablet (ELAVIL)Indications :Irritable bowel syndrome with both constipation and diarrhea,Moderate episode of recurrent major depressive disorder (HCC) TAKE 1 TABLET BY MOUTH EVERYDAY AT BEDTIME 90 Tab 3 09/16/2020 Active Atenolol 25 MG Oral Tablet (Tenormin) TAKE 1 TABLET BY MOUTH EVERY DAY 90 Tab 3 10/21/2020 Active Fluticasone Propionate 50 MCG/ACT Nasal Suspension (Flonase)Indication s:COVID-19 virus infection SPRAY 2 SPRAYS INTO EACH NOSTRIL EVERY DAY 16 mL 1 10/21/2020 Active Dicyclomine HCl 10 MG Oral CapsuleIndications: [...] EVERY DAY 180 Cap 1 03/08/2021 Active Sertraline HCl 50 MG Oral Tablet (Zoloft)Indications :Moderate episode of recurrent major depressive disorder (HCC) TAKE 1 TABLET BY MOUTH EVERY DAY 90 Tab 1 03/16/2021 Active Clopidogrel Bisulfate 75 MG Oral Tablet (pLAVix)Indications :Stenosis of right vertebral artery,TIA (transient ischemic attack) TAKE 1 TABLET BY MOUTH EVERY DAY 90 Tab 1 03/17/2021 Active Nystatin 238466 UNIT/GM External Powder (Nystop)Indications :Candidal skin infection APPLY TOPICALLY TO AFFECTED AREA 3 TIMES A DAY. 45 g 1 03/17/2021 Active documented as of this encounter (statuses as of 03/27/2021) Active Problems Problem Noted Date Schatzki's ring 12/22/2020 Moderate episode of recurrent [...] as of this encounter (statuses as of 03/27/2021) Resolved Problems Problem Noted Date Resolved Date [...] as of this encounter (statuses as of 03/27/2021) Immunizations Name Administration Dates Next Due COVID-19 [...] encounter Miscellaneous Notes * Telephone Encounter - Alex Iglesias OSA - 03/27/2021 11:06 AM EDT Per request, rncm hv resched to 03/30 at 1:30. Pt aware. documented in this encounter Plan of Treatment Upcoming Encounters Date Type Specialty Care Team Description 03/29/2021 Office Visit Family Medicine Jade Castillo MD [address] [place] [address] [place] [address] [phone] 03/30/2021 Home Visit [facility] Corrina Layne, S[address] [place] [address] [phone] Health Maintenance Due Date Last Done Comments Zoster Vaccines (1 of 2) 1993 *ADVANCE DIRECTIVE NOT ON FILE 12/23/2015 *DEPRESSION SCREENING,ANNUAL FOR PTS 12 AND OVER 08/14/2020 COLONOSCOPY-EVERY 3 YRS AGES 18-100 03/26/2021 03/26/2018, 03/08/2015 Dexa Scan 08/17/2022 08/17/2015 DIABETES SCREEN EVERY 3 YRS-AGE 45 AND ABOVE 12/27/2023 12/26/2020, 12/26/2020, 09/22/2020, Additional history exists DTaP,Tdap,and Td Vaccines (2 - Td) 04/19/2028 04/19/2018, 05/03/2004, 05/03/2004 Pneumococcal Vaccine: 65+ Years Completed 03/28/2017, 09/21/2015 Influenza Vaccine (FLU shot) Completed 03/2020, 07/10/2019, 07/10/2019, Additional history exists COVID-19 Vaccine Completed 12/16/2020, 11/25/2020 MENINGOCOCCAL (MENACTRA/MENVEO) Aged Out No longer eligible based on patient's age to complete this topic documented as of this encounter Implants Not on filedocumented as of this encounter Advance Directives Documents on File Type Date Recorded 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
--- OUTSIDE RECORDS SUMMARY | 2023-06-07 07:57 | External Medical Summary | Summary of Care ---
Author Name Unknown Organization [place] [address] Care Team Providers Care Quenching Machine Operator Name Role Phone Yariel Cardoza MD Primary Care Provide r Reason for Visit * Reason Comments eRx-Medication Refill Encounter Details Date Type Department Care Team Description 03/07/2021 Refill Family Medicine [address] [place] [address] Jade Castillo MD [address] [place] [address] [place] [id number] Encounter for long-term (current) use of medications*; Gastroesophageal reflux disease without esophagitis Allergies Active Allergy Reactions Severity Noted Date Comments Adhesive Tape 06/29/2003 Sensitive to Naproxen Hives 05/28/2015 Ivp Dye Hives 08/20/2000 Latex Other (Please comment) 01/05/2015 Contact rash Ibuprofen Rash 01/05/2015 documented as of this encounter (statuses as of 03/08/2021) Medications Medication Sig Dispensed Refills Start Date [...] Take 0.4 mg by mouth daily. Per [facility] ER 0 06/09/2019 Active ondansetron (ZOFRAN) 4 MG Tablet Take 4 mg by mouth every 6 hours as needed for Nausea. Per [facility] ER 0 06/09/2019 Active nystatin (NYSTOP) 115951 UNIT/GM powderIndications :Candidal skin infection Apply topically to affected area 3 times a day. Apply to the affected area 45 g 1 02/26/2020 Active zoster vac recomb adjuvanted (SHINGRIX) 50 MCG/0.5ML injectionIndicati ons:Need for vaccination for zoster Inject 0.5 mL into a large muscle now and repeat dose in 60 to 180 days 1 Each 1 03/03/2020 Active Probiotic Product ([employer] ADV PROBIOTIC GUMMIES) CHEW Take 2 Gum Dosing Unit by mouth. 0 Active furosemide (LASIX) 20 MG TabletIndications :Bilateral edema of lower extremity,Pulmona ry hypertension (HCC) TAKE 1 TABLET BY MOUTH DAILY NEEDED (SWELLING). FOR FLUID ACCUMULATION OR WEIGHT GAIN 30 Tab 5 03/17/2020 Active albuterol-ipratro pium (DUONEB) 2.5-0.5 MG/3ML nebulizer solutionIndicatio ns:COPD, severe (HCC) INHALE 3 MLS VIA NEBULIZER EVERY 4 HOURS NEEDED FOR COUGH, SHORTNESS OF BREATH OR WHEEZING. 360 mL 1 04/11/2020 Active amLODIPine (NORVASC) 2.5 MG TabletIndications :HTN, goal below 140/90 TAKE 1 TABLET BY MOUTH EVERY DAY 90 Tab 3 04/30/2020 Active hydroCHLOROthiazi de 25 MG Oral Tablet (HYDRODIURIL) TAKE 1 TABLET BY MOUTH EVERY DAY 90 Tab 2 07/24/2020 Active Potassium Chloride ER 10 MEQ Oral Tablet Extended Release TAKE 1 TABLET BY MOUTH EVERY DAY 90 Tab 2 09/10/2020 Active Amitriptyline HCl 25 MG Oral Tablet (ELAVIL)Indicatio ns:Irritable bowel syndrome with both constipation and diarrhea,Moderate episode of recurrent major depressive disorder (HCC) TAKE 1 TABLET BY MOUTH EVERYDAY AT BEDTIME 90 Tab 3 09/16/2020 Active Sertraline HCl 50 MG Oral Tablet (ZOLOFT)Indicatio ns:Moderate episode of recurrent major depressive disorder (HCC) TAKE 1 TABLET BY MOUTH EVERY DAY 90 Tab 1 09/16/2020 Active Atenolol 25 MG Oral Tablet (Tenormin) TAKE 1 TABLET BY MOUTH EVERY DAY 90 Tab 3 10/21/2020 Active Fluticasone Propionate 50 MCG/ACT Nasal Suspension (Flonase)Indicati ons:COVID-19 virus infection SPRAY 2 SPRAYS INTO EACH NOSTRIL EVERY DAY 16 mL 1 10/21/2020 Active Dicyclomine HCl 10 MG Oral CapsuleIndication s:Irritable bowel syndrome with both constipation and diarrhea Take 1 Cap by mouth 4 times a day as needed (abdominal pain, cramping). for abdominal pain 120 Cap 5 12/22/2020 Active Meclizine HCl 25 MG Oral Tablet (Antivert) TAKE 1 TABLET BY MOUTH ONCE EVERY 6 HOURS NEEDED FOR DIZZINESS/VERTIGO 10 Tab 0 12/22/2020 Active Clopidogrel Bisulfate 75 MG Oral Tablet (pLAVix)Indicatio ns:Stenosis of right vertebral artery,TIA (transient ischemic attack) Take 1 Tab by mouth daily. 30 Tab 2 12/22/2020 Active Atorvastatin Calcium 40 MG Oral Tablet (Lipitor) Take 1 Tab by mouth daily. 90 Tab 1 01/09/2021 Active Omeprazole 20 MG Oral Capsule Delayed Release (PriLOSEC)Indicat ions:Gastroesopha geal reflux disease without esophagitis TAKE 2 CAPSULES BY MOUTH EVERY DAY 180 Cap 1 03/08/2021 Active omeprazole (PRILOSEC) 20 MG CPDRIndications:G astroesophageal reflux disease without esophagitis Take 2 Caps by mouth daily. 180 Cap 1 06/03/2020 03/08/20 21 Discontinued documented as of this encounter (statuses as of 03/08/2021) Active Problems Problem Noted Date Schatzki's ring [...] as of this encounter (statuses as of 03/08/2021) Resolved Problems Problem Noted Date Resolved Date [...] as of this encounter (statuses as of 03/08/2021) Immunizations Name Administration Dates Next Due COVID-19 mRNA, LNP-s, No Pre serve, 2-Dose Series ([employer]) 12/16/2020,11/25/2020 Pneumococcal Conjugate Vacc, 13 Valent (Prevnar) [...] Notes * Telephone Encounter - Zhane Millan [facility] - 03/08/2021 7:50 AM EDT Signed Prescriptions: Disp Refills Omeprazole 20 MG Oral Capsule Delayed Rele*180 Cap1 Sig: TAKE 2 CAPSULES BY MOUTH EVERY DAYAuthorizing Provider: Nithin CASTILLO User: ZHANE MILLAN documented in this encounter Plan of Treatment Upcoming Encounters Date Type Specialty Care Team Description 03/27/2021 [facility] Visit [facility] Corrina Layne RN [address] [facility] [place] [address] [phone] 03/29/2021 Office Visit Family Medicine Jade Castillo MD [address] [place] [address] [place] [id number] Scheduled Orders Name Type Priority Associated Diagnoses Orde r Schedule VITAMIN B12 Lab Routine Encounter for long-term (current) use of medications Expected: 03/08/2021 (Approximate), Expires: 03/08/2022 Health Maintenance Due Date Last Done Comments [...] Diagnosis Encounter for long-term (current) use of medications- Primary Encounter for long-term (current) use of other medications Gastroesophageal reflux disease without esophagitis Esophageal reflux documented in this encounter Advance Directives Documents on File Type Date 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
--- OUTSIDE RECORDS SUMMARY | 2023-06-07 07:57 | External Medical Summary | Summary of Care ---
Author Name Unknown Organization [place] [address] Care Team Providers Care Supervisor Spring Up Name Role Phone Yariel Cardoza MD Primary Care Provide r Reason for Visit * Reason Onset Date Comments Appointment 03/31/2021 Encounter Details Date Type Department Care Team Description 03/31/2021 Telephone Dermatology [facility] [address] [place] [id number] Marie Conrad MD [address] [place] [address] [phone] Appointment Allergies Active Allergy Reactions Severity Noted Date Comments Adhesive Tape 06/29/2003 Sensitive to Naproxen Hives 05/28/2015 Ivp Dye Hives 08/20/2000 Latex Other (Please comment) 01/05/2015 Contact rash Ibuprofen Rash 01/05/2015 documented as of this encounter (statuses as of 04/03/2021) Medications Medication Sig Dispensed Refills Start Date [...] 6 hours as needed for Nausea. Per [facility] ER 0 06/09/2019 Active zoster [...] OR WHEEZING. 360 mL 1 04/11/2020 Active hydroCHLOROthiazide 25 MG Oral Tablet (HYDRODIURIL) TAKE 1 TABLET BY MOUTH EVERY DAY 90 Tab 2 07/24/2020 Active Potassium Chloride ER 10 MEQ Oral Tablet Extended Release TAKE 1 TABLET BY MOUTH EVERY DAY 90 Tab 2 09/10/2020 Active Atenolol 25 MG Oral Tablet (Tenormin) TAKE 1 TABLET BY MOUTH EVERY DAY 90 Tab 3 10/21/2020 Active Fluticasone Propionate 50 MCG/ACT Nasal Suspension (Flonase)Indications: COVID-19 virus infection SPRAY 2 SPRAYS INTO EACH NOSTRIL EVERY DAY 16 mL 1 10/21/2020 Active Dicyclomine HCl 10 MG Oral CapsuleIndications:Ir [...] DAY 90 Tab 1 03/17/2021 Active Nystatin 774606 UNIT/GM External Powder (Nystop)Indications:C andidal skin infection APPLY TOPICALLY TO AFFECTED AREA 3 TIMES A DAY. 45 g 1 03/17/2021 Active documented as of this encounter (statuses as of 04/03/2021) Active Problems Problem Noted Date History of [...] as of this encounter (statuses as of 04/03/2021) Resolved Problems Problem Noted Date Resolved Date [...] as of this encounter (statuses as of 04/03/2021) Immunizations Name Administration Dates Next Due COVID-19 mRNA, LNP-s, No Pre serve, 2-Dose Series ([employer]) 12/16/2020,11/25/2020 Pneumococcal Conjugate Vacc, 13 Valent (Prevnar) [...] encounter Miscellaneous Notes * Telephone Encounter - Kirti Clemente OSA - 04/03/2021 9:36 AM EDT Called patient and scheduled appointment. * Telephone Encounter - Kirti Clemente OSA - 03/31/2021 4:20 PM EDT Called and spoke to patient's . Patient was unavailable at the time. Will call patient back on Saturday. * Telephone Encounter - Miguel A Latham OSA - 03/31/2021 3:13 PM EDT Pt's daughter has an appt on 10/04/21 at 8:30am with Dr. Conrad and would like to be worked into the scheduled around the same time so they can come together. The pt needs some skin tags removed. Please call her to schedule at [phone] documented in this encounter Plan of Treatment Upcoming Encounters Date Type Specialty Care Team Description 04/28/2021 Office Visit Family Medicine Jade Castillo MD [address] [place] [address] [place] [address] [phone] 05/11/2021 Home Visit [facility] Corrina Layne, RN [address] [place] [address] [phone] 06/15/2021 Procedure Only Endoscopy Shakila Rocha, DO [address] [place] [address] [phone] 10/04/2021 [facility] [address] [place] [address] [phone] Health Maintenance Due Date Last Done Comments [...] Documents on File Type Date Recorded 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
--- OUTSIDE RECORDS SUMMARY | 2023-06-07 07:57 | External Medical Summary | Summary of Care ---
Author Name Unknown Organization [place] [address] Care Team Providers Care Manager Intelligence Name Role Phone Yariel Cardoza MD Primary Care Provide r Reason for Visit * Reason Comments [facility]: Maintenance Encounter Details Date Type Department Care Team Description 03/30/2021 [facility] Visit [facility] [address] [place] [address] Corrina Layne RN [address] [facility] [place] [address] [phone] Allergies Active Allergy Reactions Severity Noted Date [...] 6 hours as needed for Nausea. Per [facility] ER 0 06/09/2019 Active zoster [...] DAY 90 Tab 1 03/17/2021 Active Nystatin 041920 UNIT/GM External Powder (Nystop)Indications:C andidal skin infection [...] mRNA, LNP-s, No Pre serve, 2-Dose Series ([employer]) 12/16/2020,11/25/2020 Pneumococcal Conjugate Vacc, 13 Valent (Prevnar) [...] Sign Reading Time Taken Comments Blood Pressure 122/70 03/30/2021 1:50 PM EDT Pulse 76 03/30/2021 1:50 PM EDT Temperature 36.7 C (98.1 F) 03/30/2021 1:50 PM ED T Respiratory Rate 18 03/30/2021 1:50 PM EDT Oxygen Saturation 92% 03/30/2021 1:50 PM EDT Inhaled Oxygen Concentration - - Weight - - Height - - Body Mass Index - - documented in this encounter Progress Notes * Corrina Layne RN - 03/30/2021 1:48 PM EDT [facility] Repeat Photocomposing Machine Operator Visit Date: 03/30/2021 Time: 1:48 PM Name: Jayla Hayes : 1945 Current Concerns: Pt being seen for monthly return visit. Was recently to pcp. Stopped amlodipine, lasix PRN. Pt has home bp cuff to monitor. 122/70 today. Will monitor and record. IBS- having some increased bloating. Pt instructed by pcp to change to probiotic fiber. Has not started yet. No longer taking metamucil. Takes bentyl PRN bloating/ spasm. At primary care: Stopped lasix, amlodipine, amitriptyline (taper down). Pt will cut tab in half and take only half for a couple of weeks, then every other day and notify pcp if increase in symptoms of abd cramping, trouble sleeping. Physical Exam: BP 122/70 (BP Site: Left Arm, BP Position: Sitting, BP Cuff Size: Regular) | Pulse 76 | Temp 36.7 C (98.1 F) (Infrared ) | Resp 18 | SpO2 92% Pain 0 Physical Exam HENT: Mouth/Throat: Mouth: Mucous membranes are moist. Pharynx: Oropharynx is clear. Cardiovascular: Rate and Rhythm: Normal rate. Pulmonary: Effort: Pulmonary effort is normal. Breath sounds: Normal breath sounds. Abdominal: General: Bowel sounds are normal. Palpations: Abdomen is soft. Skin: General: Skin is warm and dry. Neurological: Mental Status: She is alert and oriented to person, place, and time. Psychiatric: Mood and Affect: Mood normal. Behavior: Behavior normal. Thought Content: Thought content normal. Judgment: Judgment normal. Problems/Symptoms: Review of Systems Constitutional: Negative for chills and fever. Respiratory: Negative for shortness of breath and wheezing. Cardiovascular: Negative for chest pain and leg swelling. Neurological: Negative for dizziness, weakness and light-headedness. All other systems reviewed and are negative. Medication Reconciliation: (See medication list) Does patient take medications as ordered: Yes Patient Well Being: PHQ2/9: No questionnaires available. Mood stable. Denies falls Advanced Care Planning: Living Will. Reinforcement/Education: Educated [...] Reinforced medication regimen. Timing., Dosing. and Purspose. 3 Red Flags increased sob, increased cough/wheezing not relived by nebs, fever Goals of care: 1. to stay out of the hospital 2. to spend time with family 3.get GI sxs under better control-IBS Treatment/Plan: Continue meds as ordered Continue plavix for life Fall precautions Low sodium diet Monitor bp bid and record RNCM return in one month or sooner if needed Home Interventions Provided: Reinforced current Plan of Care, including self-management and medication regimen Patient Needs to Remember: Call [facility] at with any new or worsening health concerns or problems, red flag symptoms. Follow Up: Patient encouraged to call the intake phone number for all urgent but not emergent issues. Is the patient new to [facility] within the last 30 days? No, Assess appropriateness for upcoming telehealth visits. Cancel telehealth visits & schedule home visit with care steam roller operator(s)as indicated. Provider is in agreement with Plan of Care: Yes Scheduled to follow up with patient in 1 month. Corrina Layne RN 03/30/2021 1:48 PM documented in this encounter Plan of Treatment Upcoming Encounters Date Type Specialty Care Team Description 04/28/2021 Office Visit Family Medicine Jade Castillo MD [address] [place] [address] [place] [address] [phone] 05/11/2021 Home Visit [facility] Corrina Layne, SELENE [address] [facility] [place] [address] 06/15/2021 Procedure Only Endoscopy Shakila Rocha, DO [address] [place] [address] [phone] 10/04/2021 Office Visit Dermatology Marie Conrad MD [address] [place] [address] [phone] Health Maintenance Due Date Last Done Comments [...] Documents on File Type Date Recorded 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
--- OUTSIDE RECORDS SUMMARY | 2023-06-07 07:57 | External Medical Summary | Summary of Care ---
Author Name Unknown Organization [place] [address] Care Team Providers Care Cold Meat Cook Name Role Phone Yariel Cardoza MD Primary Care Provide r Reason for Visit * Reason Onset Date Comments Advice 04/03/2021 Encounter Details Date Type Department Care Team Description 04/03/[address] [address] Yariel Cardoza MD [address] [place] [address] [place] [phone] Advice Allergies Active Allergy Reactions Severity Noted Date Comments Adhesive Tape 06/29/2003 Sensitive to Naproxen Hives 05/28/2015 Ivp Dye Hives 08/20/2000 Latex Other (Please comment) 01/05/2015 Contact rash Ibuprofen Rash 01/05/2015 documented as of this encounter (statuses as of 04/11/2021) Medications Medication Sig Dispensed Refills Start Date [...] 6 hours as needed for Nausea. Per [facility] ER 0 06/09/2019 Active zoster vac [...] DAY 90 Tab 1 03/17/2021 Active Nystatin 459867 UNIT/GM External Powder (Nystop)Indications:C andidal skin infection APPLY TOPICALLY TO AFFECTED AREA 3 TIMES A DAY. 45 g 1 03/17/2021 Active documented as of this encounter (statuses as of 04/11/2021) Active Problems Problem Noted Date History of [...] as of this encounter (statuses as of 04/11/2021) Resolved Problems Problem Noted Date Resolved Date [...] as of this encounter (statuses as of 04/11/2021) Immunizations Name Administration Dates Next Due COVID-19 mRNA, LNP-s, No Pre serve, 2-Dose Series ([employer]) 12/16/2020,11/25/2020 Pneumococcal Conjugate Vacc, 13 Valent (Prevnar) [...] encounter Miscellaneous Notes * Telephone Encounter - Karlene Nichole LPN - 04/04/2021 12:03 PM EDT Made pt aware and they expressed understanding. * Telephone Encounter - Yariel Cardoza MD - 04/03/2021 4:24 PM EDT OK to hold Plavix for 7 days. Ok to get the pre probiotic fiber at [facility] * Telephone Encounter - Karlene Nichole LPN - 04/03/2021 9:47 AM EDT Please advise below- colonoscopy scheduled. * Telephone Encounter - Awa Connell OSA - 04/03/2021 9:11 AM EDT Patient states she has is scheduled for colonoscopy on 06/15/21. Wants to know if she can stop the Plavix 7 days before procedure. She also states the provider ordered probiotic fiber for her. She states she can only find something that says "pre probiotic fiber" in [facility]. Asking if this is the same or where she can find the correct one. Please advise. documented in this encounter Plan of Treatment Upcoming Encounters Date Type Specialty Care Team Description 04/12/2021 Office Visit Family Medicine Jade Castillo MD [address] [place] [address] [place] [address] [phone] 04/28/2021 Office Visit Family Medicine Jade Castillo MD [address] [place] [address] [place] [address] [phone] 05/11/2021 Home Visit [facility] Corrina Layne RN [address] [place] [address] [phone] 06/15/2021 Procedure Only Endoscopy Shakila Rocha, [address] [place] [address] [phone] 10/04/2021 Office Visit Dermatology Marie Conrad MD [address] [place] [address] [phone] Health Maintenance Due Date Last Done Comments [...] on File Type Date Recorded 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
--- OUTSIDE RECORDS SUMMARY | 2023-06-07 07:57 | External Medical Summary | Summary of Care ---
Author Name Unknown Organization [place] [address] Care Team Providers Care Research Nurse Practitioner Name Role Phone Yariel Cardoza MD Primary Care Provide r Reason for Referral * Ancillary Services (Within 30 days (routine)) Status Reason Specialty Diagnoses / Procedures Referred By Contact Referred To Contact Authorized Ancillary Services Required Gastroenterology Diagnoses Special screening for malignant neoplasms, colon Jade Castillo MD [address] [place] [address] [place] [id number] Question Answer Referral Priority Within 30 days (routine) Comments ALERT: Do not order for pediatric patients (18 years or younger). Cancel off screen and order PEDS GASTROENTEROLOGY CONSULT (Type: 1 visit only-Evaluate and Treat) The following Pt. Instructions are available: - Gastro Colonoscopy Prep Instructions [[id number]] - Gastro Colonoscopy Prep Instructions (Haitian Version) [[id number]] Go to the Pt. Instructions section within the Visit Navigator to access. Colonoscopy ASGE Guidelines: Average risk screening (begin at age 50, 10 year intervals) ADDITIONAL INFORMATION 1. Is the patient on Coumadin? No 2. Is the patient on Pradaxa? No Electronically signed by Jade Castillo MD at Reason for Visit * Reason Comments Re-Check Encounter Details Date Type Department Care Team Description 03/29/2021 Office Visit Family Medicine [address] [place] [address] Jade Castillo MD [address] [place] [address] [place] [id number] Vertebral artery stenosis, asymptomatic, right*; History of TIA (transient ischemic attack); Special screening for malignant neoplasms, colon; Irritable bowel syndrome with both constipation and diarrhea; Moderate episode of recurrent major depressive disorder (HCC); Insomnia, unspecified type; HTN, goal below 140/90 Allergies Active Allergy Reactions Severity Noted Date Comments Adhesive Tape 06/29/2003 Sensitive to Naproxen Hives 05/28/2015 Ivp Dye Hives 08/20/2000 Latex Other (Please comment) 01/05/2015 Contact rash Ibuprofen Rash 01/05/2015 documented as of this encounter (statuses as of 03/29/2021) Medications Medication Sig Dispensed Refills Start Date [...] OR WHEEZING. 360 mL 1 04/11/2020 Active hydroCHLOROthiazid e 25 MG Oral Tablet [...] Active Fluticasone Propionate 50 MCG/ACT Nasal Suspension (Flonase)Indicatio ns:COVID-19 virus infection SPRAY 2 SPRAYS INTO EACH NOSTRIL EVERY DAY 16 mL 1 10/21/2020 Active Dicyclomine HCl 10 MG Oral CapsuleIndications [...] DAY 90 Tab 1 03/17/2021 Active Nystatin 078327 UNIT/GM External Powder (Nystop)Indication s:Candidal skin infection APPLY TOPICALLY TO AFFECTED AREA 3 TIMES A DAY. 45 g 1 03/17/2021 Active tamsulosin (FLOMAX) 0.4 MG Capsule Take 0.4 mg by mouth daily. Per [facility] ER 0 06/09/2019 1 Discontinue d(Patient preference/ discontinua tion) Probiotic Product ([employer] ADV PROBIOTIC GUMMIES) CHEW Take 2 Gum Dosing Unit by mouth. 0 1 Discontinue d(Patient preference/ discontinua tion) furosemide (LASIX) 20 MG TabletIndications: Bilateral edema of lower extremity,Pulmonar y hypertension (HCC) TAKE 1 TABLET BY MOUTH DAILY NEEDED (SWELLING). FOR FLUID ACCUMULATION OR WEIGHT GAIN 30 Tab 5 03/17/2020 1 Discontinue d(Medicatio n List Clean Up) amLODIPine (NORVASC) 2.5 MG TabletIndications: HTN, goal below 140/90 TAKE 1 TABLET BY MOUTH EVERY DAY 90 Tab 3 04/30/2020 1 Discontinue d(Medicatio n List Clean Up) Amitriptyline HCl 25 MG Oral Tablet (ELAVIL)Indication s:Irritable bowel syndrome with both constipation and diarrhea,Moderate episode of recurrent major depressive disorder (HCC) TAKE 1 TABLET BY MOUTH EVERYDAY AT BEDTIME 90 Tab 3 09/16/2020 1 Discontinue d(Medicatio n/Dose Changed) Sertraline HCl 50 MG Oral Tablet (Zoloft)Indication s:Moderate episode of recurrent major depressive disorder (HCC) TAKE 1 TABLET BY MOUTH EVERY DAY 90 Tab 1 03/16/2021 1 Discontinue d(Patient preference/ discontinua tion) documented as of this encounter (statuses as of 03/29/2021) Active Problems Problem Noted Date History of [...] as of this encounter (statuses as of 03/29/2021) Resolved Problems Problem Noted Date Resolved Date [...] as of this encounter (statuses as of 03/29/2021) Immunizations Name Administration Dates Next Due COVID-19 [...] Sign Reading Time Taken Comments Blood Pressure 120/72 03/29/2021 4:39 PM EDT Pulse 66 03/29/2021 4:39 PM EDT Temperature 36.9 C (98.4 F) 03/29/2021 4:39 PM ED T Respiratory Rate 16 03/29/2021 4:39 PM EDT Oxygen Saturation 94% 03/29/2021 4:39 PM EDT Inhaled Oxygen Concentration - - Weight 91.8 kg (202 lb 6.4 oz) 03/29/2021 4:39 P M EDT Height 154.9 cm (5' 1") 03/29/2021 4:39 PM EDT Body Mass Index 38.24 03/29/2021 4:39 PM EDT documented in this encounter Progress Notes * Jade Castillo MD - 03/29/2021 4:34 PM EDT Subjective: HPI: Jayla Hayes is a 75 year old female with hx of COPD, HTN, HLD, thyroid nodules(benign FNA), urinary incontinence, depression, DDD, constipation, b/l breast reduction (2004), depression, R vertebral aa stenosis, Schatzki ring of the esophagus. TIA, prediabetesseen for R vertebral aa stenosis and hx of TIA: - on plavix and statin - completed DAPT HTN: - currently on amlodipine 2.5mg daily, atenolol 25mg daily, HCTZ 25mg daily, lasix prn - EF 55-60% - mild ankle swelling On amitriptyline for sleep and abd pain - sleeping well - also on bentyl for abd pain Depression and anxiety is better with zoloft Patient Active Problem List Diagnosis Code Slow [...] Current Outpatient Medications Medication Sig Dispense Refill Clopidogrel Bisulfate 75 MG Oral Tablet (pLAVix) TAKE 1 TABLET BY MOUTH EVERY DAY 90 Tab 1 Nystatin 591481 UNIT/GM External Powder (Nystop) APPLY TOPICALLY TO [...] BY MOUTH EVERY DAY 90 Tab 3 Fluticasone Propionate 50 MCG/ACT Nasal Suspension (Flonase) SPRAY 2 SPRAYS INTO EACH NOSTRIL EVERY DAY 16 mL 1 Potassium Chloride ER 10 MEQ Oral Tablet Extended Release TAKE 1 TABLET BY MOUTH EVERY DAY 90 Tab 2 hydroCHLOROthiazide 25 MG Oral Tablet (HYDRODIURIL) TAKE [...] Nausea. Per [facility] ER Dextromethorphan-guaiFENesin (CORICIDIN HBP CONGESTION/COUGH) 10-200 [...] 07/20/2015 COPD (chronic obstructive pulmonary disease) ([facility]) COPD, severe ([facility]) 12/21/2015 COPD, severity to be determined ([facility]) 07/20/2015 Dyslipidemia, goal LDL below 100 10/16/2015 Dyslipidemia, goal LDL below 130 08/22/2015 FAM HX-CARDIOVAS DIS NEC 01/28/2002 Generalized osteoarthritis 08/22/2015 GERD (gastroesophageal reflux disease) 07/20/2015 Hypertrophy of breast 08/31/2003 IBS (irritable bowel syndrome) 07/20/2015 Kidney disease, chronic, stage III (GFR 30-59 ml/min) ([facility]) 10/16/2015 Kidney stone Lumbar degenerative disc disease 02/06/2016 Lumbar facet arthropathy ([facility]) 02/06/2016 Lumbar spinal stenosis 02/18/2017 [...] performed by Todd Kunz, DO at OR [facility] BIOPSY OF BREAST, OPEN 1971 benign, right, removed nipple for blocked milk glands BIOPSY OF BREAST, OPEN 1976 left, benign BREAST SURGERY PROCEDURE NEC bilateral Breast Reduction 09/20/03 BUNION CORRECTED WITH DOUBLE OSTEOTOMY 1991 right foot COLONOSCOPY, DIAGNOSTIC (RECTUM) 03/08/2015 adenomatous polyps, repeat 3 yrs/[facility] COLONOSCOPY, DIAGNOSTIC (RECTUM) 03/26/2018 adenomatous & serrated adenomatous polyps, repeat 3 yrs/[facility] EGD, FLEXIBLE, DIAGNOSTIC 01/21/2015 sm HH/[facility] EGD, FLEXIBLE, DIAGNOSTIC 07/22/2018 mild gastritis, Schatzki ring, duodenal polyp/[facility] ESOPHAGOSCOPY RIGID TRANSORAL HYPOPHARYNX ESOPHAGUS 2004 repair of Zenker's diverticulum DIGITAL BREAST TOMOSYNTHESIS; [...] Relation Age of Onset Heart Disorder Father [place] age 55 Heart Disorder Mother CAD, 84 in '02 Arthritis Mother in fingers Diabetes Brother half brother Stroke Aunt (Unspecified) 80's Stroke Uncle (Unspecified) 60's Social History Tobacco Use Smoking status: Former Smoker Packs/day: 1.75 Years: 38.00 Pack years: 66.50 Types: Cigarettes Quit date: 10/07/1995 Years since quittin.4 Smokeless tobacco: Never Used Tobacco comment: quit [...] Review of Systems -Per HPI OBJECTIVE: BP 120/72 | Pulse 66 | Temp 36.9 C (98.4 F) (Tympanic) | Resp 16 | Ht (!) 1.549 m (5' 1") | Wt 91.8 kg (202 lb 6.4 oz) | SpO2 94% | BMI 38.24 kg/m | BSA 1.99 m PHYSICAL EXAM: Vitals are reviewed General:. NAD, well developed HEENT:. Normal Conjunctiva, EOMI MSK:. Normal gait Psych:. AAOx3, normal affect ASSESSMENT/PLAN: HTN: - currently on 3 different HTN meds - BP has been normal - will stop amlodipine and lasix PRN - daily home BP check and RTC in 1 month Vertebral artery stenosis, asymptomatic, right (Primary) & History of TIA (transient ischemic attack) - currently asymptomatic - on statin and plavix Special screening for malignant neoplasms, colon - COLONOSCOPY, GI REFERRAL OP Irritable bowel syndrome with both constipation and diarrhea - on bentyl prn - taking metamucil daily Moderate episode of recurrent major depressive disorder (HCC) - doing well on zoloft Insomnia, unspecified type - discontinued amitriptyline: pt is worried about SE - will do trial off of meds - RTC in 1 month Follow Up: Return in about 1 month (around 04/28/2021). Jade Castillo MD Family medicine, [address] [address] documented in this encounter Nursing Notes * Courtney Montiel LPN - 03/29/2021 4:35 PM EDT Pt here for 3 month check up Pt wondering why she is on 3 different medications for BP Was also told her with the Elavil and Zoloft she is considered high risk documented in this encounter Plan of Treatment Upcoming Encounters Date Type Specialty Care Team Description 03/30/2021 [facility] Corrina Layne RN [facility] [place] [address] 04/28/2021 Office Visit Family Medicine Jade Castillo MD [address] [place] [address] [place] [address] [phone] Scheduled Referrals Name Type Priority Associated Diagnoses Orde r Schedule COLONOSCOPY, GI REFERRAL OP Referral Within 30 days (routine) Special screening for malignant neoplasms, colon Ordered: 03/29/2021 Health Maintenance Due Date Last Done Comments [...] as of this encounter Visit Diagnoses Diagnosis Vertebral artery stenosis, asymptomatic, right- Primary History of TIA (transient ischemic attack) Transient ischemic attack (TIA), and cerebral infarction without residual deficits Special screening for malignant neoplasms, colon Irritable bowel syndrome with both constipation and diarrhea Moderate episode of recurrent major depressive disorder (HCC) Insomnia, unspecified type HTN, goal below 140/90 Unspecified essential hypertension documented in this encounter Advance Directives Documents on File Type Date Recorded 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
--- OUTSIDE RECORDS SUMMARY | 2023-06-07 07:57 | External Medical Summary | Summary of Care ---
Author Name Unknown Organization [place] [address] Care Team Providers Care Chemical Laboratory Assistant Name Role Phone Yariel Cardoza MD Primary Care Provide r Reason for Visit * Reason Onset Date Comments Appointment 03/30/2021 COLONOSCOPY Encounter Details Date Type Department Care Team Description 03/30/2021 Telephone [address] [place] [address] Jade Castillo MD [address] [place] [address] [place] [phone] Appointment (COLONOSCOPY) Allergies Active Allergy Reactions Severity Noted Date [...] as needed for Nausea. Per [facility] ER 0 06/09/2019 Active zoster vac [...] DAY 90 Tab 1 03/17/2021 Active Nystatin 193988 UNIT/GM External Powder (Nystop)Indications:C andidal skin infection [...] mRNA, LNP-s, No Pre serve, 2-Dose Series ([employer]) 12/16/2020,11/25/2020 Pneumococcal Conjugate Vacc, 13 Valent (Prevnar) [...] encounter Miscellaneous Notes * Telephone Encounter - Jade Castillo MD - 04/03/2021 7:34 PM EDT Yes it is okay to hold plavix for 7 days prior to colonoscopy Clinical Note: - TIA > 3 months - pt had multiple polyps in the prior colonoscopy * Telephone Encounter - Karlene Nichole LPN - 03/30/2021 11:03 AM EDT Please advise. Pt saw you yesterday. * Telephone Encounter - Frank Vizcarra OSA - 03/30/2021 10:58 AM EDT Colon kartik'd 06/14 w/ Aj at [place] (occasional O2 use). Pt advised that recommendation is for her to d/c Plavix for 7 days prior. Advised that she needs toverify with prescribing provider to ensure this is ok. Please advise. * Telephone Encounter - Juan Chin OSA - 03/30/2021 7:46 AM EDT Colonoscopy order placed. Please contact pt and assist in scheduling. Thank you. documented in this encounter Plan of Treatment Upcoming Encounters Date Type Specialty Care Team Description 04/28/2021 Office Visit Family Medicine Jade Castillo MD [address] [place] [address] [place] [address] [phone] 05/11/2021 [facility] Visit [facility] [place] Corrina Layne RN [address] [facility] [place] [address] [phone] 06/15/2021 Procedure Only Endoscopy Shakila Rocha DO [address] [place] [address] [phone] 10/04/2021 Office Visit Dermatology Marie Conrad MD [address] [place] [address], [place] [address] [phone] Health Maintenance Due Date Last Done Comments [...] Documents on File Type Date Recorded 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
--- OUTSIDE RECORDS SUMMARY | 2023-06-07 07:57 | External Medical Summary | Summary of Care ---
Author Name Unknown Organization [place] [address] Care Team Providers Care Therapeutic Radiologist Name Role Phone Leanne Cardoza MD Primary Care Provide r Reason for Visit * Reason Comments eRx-Medication Refill Encounter Details Date Type Department Care Team Description 03/16/2021 Refill Family Medicine [address] [place] [address] Leanne Cardoza MD [address] [place] [address] [place] [phone] Moderate episode of recurrent major depressive disorder (HCC) Allergies Active Allergy Reactions Severity Noted Date Comments Adhesive Tape 06/29/2003 Sensitive to Naproxen Hives 05/28/2015 Ivp Dye Hives 08/20/2000 Latex Other (Please comment) 01/05/2015 Contact rash Ibuprofen Rash 01/05/2015 documented as of this encounter (statuses as of 03/16/2021) Medications Medication Sig Dispensed Refills Start Date [...] Take 0.4 mg by mouth daily. Per [facility] ER 0 06/09/2019 Active ondansetron (ZOFRAN) 4 MG Tablet Take 4 mg by mouth every 6 hours as needed for Nausea. Per [facility] ER 0 06/09/2019 Active nystatin (NYSTOP) 713613 UNIT/GM powderIndications :Candidal skin infection Apply topically [...] Active Sertraline HCl 50 MG Oral Tablet (Zoloft)Indicatio ns:Moderate episode of recurrent major depressive disorder (HCC) TAKE 1 TABLET BY MOUTH EVERY DAY 90 Tab 1 03/16/2021 Active Sertraline HCl 50 MG Oral Tablet (ZOLOFT)Indicatio ns:Moderate episode of recurrent major depressive disorder (HCC) TAKE 1 TABLET BY MOUTH EVERY DAY 90 Tab 1 09/16/2020 03/16/20 21 Discontinued documented as of this encounter (statuses as of 03/16/2021) Active Problems Problem Noted Date Schatzki's ring [...] as of this encounter (statuses as of 03/16/2021) Resolved Problems Problem Noted Date Resolved Date [...] as of this encounter (statuses as of 03/16/2021) Immunizations Name Administration Dates Next Due COVID-19 [...] Miscellaneous Notes * Telephone Encounter - Vipul Apple, [facility] - 03/16/2021 4:14 PM EDT Signed Prescriptions: Disp Refills Sertraline HCl 50 MG Oral Tablet (Zoloft) 90 Tab 1 Sig: TAKE 1 TABLET BY MOUTH EVERY DAYAuthorizing Provider: LEANNE CARDOZA User: VIPUL APPLE documented in this encounter Plan of Treatment Upcoming Encounters Date Type Specialty Care Team Description 03/27/2021 Home Visit [facility] Corrina Layne RN [address] [facility] [place] [address] [phone] 03/29/2021 Office Visit Family Medicine Jade Castillo MD [address] [place] [address] [place] [address] [phone] Health Maintenance Due Date Last Done Comments [...] as of this encounter Visit Diagnoses Diagnosis Moderate episode of recurrent major depressive disorder (HCC) documented in this encounter Advance Directives Documents on File Type Date Recorded Patient Floorleader Expl 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
--- OUTSIDE RECORDS SUMMARY | 2023-06-07 07:57 | External Medical Summary | Summary of Care ---
Author Name Unknown Organization [place] [address] Care Team Providers Care Physics Tutor Name Role Phone Yariel Cardoza MD Primary Care Provide r Reason for Visit * Reason Comments Re-Check Encounter Details Date Type Department Care Team Description 04/12/2021 Office Visit Family Medicine [address] [place] [address] Jade Castillo MD [address] [place] [address] [place] [address] HTN, goal below 140/90* Allergies Active Allergy Reactions Severity Noted Date Comments Adhesive Tape 06/29/2003 Sensitive to Naproxen Hives 05/28/2015 Ivp Dye Hives 08/20/2000 Latex Other (Please comment) 01/05/2015 Contact rash Ibuprofen Rash 01/05/2015 documented as of this encounter (statuses as of 04/12/2021) Medications Medication Sig Dispensed Refills Start Date [...] as needed for Nausea. Per [facility] 0 06/09/2019 Active zoster vac recomb adjuvanted (SHINGRIX) 50 MCG/0.5ML injectionIndicati ons:Need for vaccination for zoster Inject 0.5 mL into a large muscle now and repeat dose in 60 to 180 days 1 Each 1 03/03/2020 Active albuterol-ipratro pium (DUONEB) 2.5-0.5 MG/3ML nebulizer solutionIndicatio ns:COPD, severe (HCC) INHALE 3 MLS VIA NEBULIZER EVERY 4 HOURS NEEDED FOR COUGH, SHORTNESS OF BREATH OR WHEEZING. 360 mL 1 04/11/2020 Active hydroCHLOROthiazi de 25 MG Oral Tablet (HYDRODIURIL) TAKE 1 TABLET BY MOUTH EVERY DAY 90 Tab 2 07/24/2020 Active Potassium Chloride ER 10 MEQ Oral Tablet Extended Release TAKE 1 TABLET BY MOUTH EVERY DAY 90 Tab 2 09/10/2020 Active Dicyclomine HCl 10 MG Oral CapsuleIndication s:Irritable bowel syndrome with both constipation and diarrhea Take 1 Cap by mouth 4 times a day as needed (abdominal pain, cramping). for abdominal pain 120 Cap 5 12/22/2020 Active Meclizine HCl 25 MG Oral Tablet (Antivert) TAKE 1 TABLET BY MOUTH ONCE EVERY 6 HOURS NEEDED FOR DIZZINESS/VERT IGO 10 Tab 0 12/22/2020 Active Atorvastatin Calcium [...] DAY 90 Tab 1 03/17/2021 Active Nystatin 853210 UNIT/GM External Powder (Nystop)Indicatio ns:Candidal skin infection APPLY TOPICALLY TO AFFECTED AREA 3 TIMES A DAY. 45 g 1 03/17/2021 Active Atenolol 25 MG Oral Tablet (Tenormin)Indicat ions:HTN, goal below 140/90 Take 0.5 Tabs by mouth daily. 90 Tab 3 04/12/2021 Active Atenolol 25 MG Oral Tablet (Tenormin) TAKE 1 TABLET BY MOUTH EVERY DAY 90 Tab 3 10/21/2020 04/12/20 21 Discontinued Fluticasone Propionate 50 MCG/ACT Nasal Suspension (Flonase)Indicati ons:COVID-19 virus infection SPRAY 2 SPRAYS INTO EACH NOSTRIL EVERY DAY 16 mL 1 10/21/2020 04/12/20 21 Discontinued(Pat ient preference/disco ntinuation) documented as of this encounter (statuses as of 04/12/2021) Active Problems Problem Noted Date History of [...] as of this encounter (statuses as of 04/12/2021) Resolved Problems Problem Noted Date Resolved Date [...] as of this encounter (statuses as of 04/12/2021) Immunizations Name Administration Dates Next Due COVID-19 [...] Sign Reading Time Taken Comments Blood Pressure 138/88 04/12/2021 8:44 AM EDT Pulse 66 04/12/2021 8:44 AM EDT Temperature 37 C (98.6 F) 04/12/2021 8:44 AM EDT Respiratory Rate 16 04/12/2021 8:44 AM EDT Oxygen Saturation 94% 04/12/2021 8:44 AM EDT Inhaled Oxygen Concentration - - Weight 90.4 kg (199 lb 3.2 oz) 04/12/2021 8:44 A M EDT Height 154.9 cm (5' 1") 04/12/2021 8:44 AM EDT Body Mass Index 37.64 04/12/2021 8:44 AM EDT documented in this encounter Progress Notes * Jade Castillo MD - 04/12/2021 8:58 AM EDT Subjective: HPI: Jayla Hayes is a 75 year old female with hx of COPD, HTN, HLD, thyroid nodules(benign FNA), urinary incontinence, depression, DDD, constipation, b/l breast reduction (2004), depression, R vertebral aa stenosis, Schatzki ring of the esophagus, TIA, prediabetesseenfor HTN follow up HTN: - was on amlodipine 2.5mg daily, atenolol 25mg daily, HCTZ 25mg daily, lasix prn ----- advised the pt to stop amlodipine 2.5mg daily and lasix prn - pt also decreased her atenolol to 12.5mg daily - but pt is taking 1/2 tab of amlodipine 2.5mg daily & Stopped it today - Home BP readings: 120-150s/70-100 - doing good with current changes - denied any hx of PA, CVA or cardiac arrhythmia Patient Active Problem List Diagnosis Code Slow [...] Current Outpatient Medications Medication Sig Dispense Refill Atenolol 25 MG Oral Tablet (Tenormin) Take 0.5 Tabs by mouth daily. 90 Tab 3 Clopidogrel Bisulfate 75 MG Oral Tablet (pLAVix) TAKE 1 TABLET BY MOUTH EVERY DAY 90 Tab 1 Nystatin 173866 UNIT/GM External Powder (Nystop) APPLY TOPICALLY TO [...] as needed for Nausea. Per [facility] Dextromethorphan-guaiFENesin (CORICIDIN HBP CONGESTION/COUGH) 10-200 MG [...] 07/20/2015 COPD (chronic obstructive pulmonary disease) ([facility]) COPD, severe ([facility]) 12/21/2015 COPD, severity to be determined ([facility]) 07/20/2015 Dyslipidemia, goal LDL below 100 10/16/2015 Dyslipidemia, goal LDL below 130 08/22/2015 FAM HX-CARDIOVAS DIS NEC 01/28/2002 Generalized osteoarthritis 08/22/2015 GERD (gastroesophageal reflux disease) 07/20/2015 Hypertrophy of breast 08/31/2003 IBS (irritable bowel syndrome) 07/20/2015 Kidney disease, chronic, stage III (GFR 30-59 ml/min) ([facility]) 10/16/2015 Kidney stone Lumbar degenerative disc disease 02/06/2016 Lumbar facet arthropathy ([facility]) 02/06/2016 Lumbar spinal stenosis 02/18/2017 Mixed [...] performed by Todd Rubalcavasins, DO at [facility] BIOPSY OF BREAST, OPEN 1971 benign, right, removed nipple for blocked milk glands BIOPSY OF BREAST, OPEN 1976 left, benign BREAST SURGERY PROCEDURE NEC bilateral Breast Reduction 09/20/03 BUNION CORRECTED WITH DOUBLE OSTEOTOMY 1991 right foot COLONOSCOPY, DIAGNOSTIC (RECTUM) 03/08/2015 adenomatous polyps, repeat 3 yrs/[facility] COLONOSCOPY, DIAGNOSTIC (RECTUM) 03/26/2018 adenomatous & serrated adenomatous polyps, repeat 3 yrs/[facility] EGD, FLEXIBLE, DIAGNOSTIC 01/21/2015 sm HH/[facility] EGD, FLEXIBLE, DIAGNOSTIC 07/22/2018 mild gastritis, Schatzki ring, duodenal polyp/[facility] ESOPHAGOSCOPY RIGID TRANSORAL HYPOPHARYNX ESOPHAGUS 2004 repair [...] Relation Age of Onset Heart Disorder Father [place] age 55 Heart Disorder Mother CAD, 84 [...] Review of Systems -Per HPI OBJECTIVE: BP 138/88 | Pulse 66 | Temp 37 C (98.6 F) (Tympanic) | Resp 16 | Ht (!) 1.549 m (5' 1") | Wt 90.4 kg (199 lb 3.2 oz) | SpO2 94% | BMI 37.64 kg/m | BSA 1.97 m PHYSICAL EXAM: Vitals are reviewed General:. NAD, well developed HEENT:. Normal Conjunctiva, EOMI MSK:. Normal gait Psych:. AAOx3, normal affect ASSESSMENT/PLAN: HTN, goal below 140/90 (Primary) - continue with HCTZ 25mg daily and atenolol 12.5mg daily - BP check daily (after sitting for 10 mins) - RTC in 2 weeks Follow Up: Return in about 2 weeks (around 04/26/2021). Jade Castillo MD Family medicine[address] [address] documented in this encounter Nursing Notes * Courtney Montiel LPN - 04/12/2021 8:41 AM EDT Pt here for eleveated BP States has been weaning herself off of Amlodipine per last office visit - has been taking 1/2 pill Has been checking BP at home - has been high Denies any lightheadedness, dizziness, blurred vision or chest pain States has been getting headaches - thinks due to heat documented in this encounter Plan of Treatment Upcoming Encounters Date Type Specialty Care Team Description 04/26/2021 Office Visit Family Medicine Jade Castillo MD [address] [place] [address] [place] [address] [phone] 04/28/2021 Office Visit Family Medicine Jade Castillo MD [address] [place] [address] [place] [address] [phone] 05/11/2021 [facility] Visit [facility] Corrina Layne RN [address] [place] [place] [address] [phone] 06/15/2021 Procedure Only Endoscopy Shakila Rocha, [address] [place] [address] [phone] 10/04/2021 Office Visit Dermatology Marie Conrad MD [address] [place] [address] [phone] Health Maintenance Due Date Last Done Comments [...] Documents on File Type Date Recorded Patient Consumer Recruiter Expl 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
--- OUTSIDE RECORDS SUMMARY | 2023-06-07 07:57 | External Medical Summary | Summary of Care ---
Author Name Unknown Organization [place] [address] Care Team Providers Care Terra Cotta Roofer Name Role Phone Yariel Cardoza MD Primary Care Provide r Reason for Visit * Reason Comments eRx-Medication Refill Encounter Details Date Type Department Care Team Description 03/17/2021 Refill Internal Medicine [address] [place] [address] Jade Castillo MD [address] [place] [address] [place] [phone] Stenosis of right vertebral artery; TIA (transient ischemic attack); Candidal skin infection Allergies Active Allergy Reactions Severity Noted Date Comments Adhesive Tape 06/29/2003 Sensitive to Naproxen Hives 05/28/2015 Ivp Dye Hives 08/20/2000 Latex Other (Please comment) 01/05/2015 Contact rash Ibuprofen Rash 01/05/2015 documented as of this encounter (statuses as of 03/17/2021) Medications Medication Sig Dispensed Refills Start Date [...] 0.4 mg by mouth daily. Per [facility] 0 06/09/2019 Active ondansetron (ZOFRAN) 4 MG Tablet Take 4 mg by mouth every 6 hours as needed for Nausea. Per [facility] 0 06/09/2019 Active zoster vac [...] DAY 90 Tab 1 03/17/2021 Active Nystatin 001331 UNIT/GM External Powder (Nystop)Indicatio ns:Candidal skin infection APPLY TOPICALLY TO AFFECTED AREA 3 TIMES A DAY. 45 g 1 03/17/2021 Active nystatin (NYSTOP) 841485 UNIT/GM powderIndications :Candidal skin infection Apply topically to affected area 3 times a day. Apply to the affected area 45 g 1 02/26/2020 03/17/20 21 Discontinued Clopidogrel Bisulfate 75 MG Oral Tablet (pLAVix)Indicatio ns:Stenosis of right vertebral artery,TIA (transient ischemic attack) Take 1 Tab by mouth daily. 30 Tab 2 12/22/2020 03/17/20 21 Discontinued documented as of this encounter (statuses as of 03/17/2021) Active Problems Problem Noted Date Schatzki's ring [...] as of this encounter (statuses as of 03/17/2021) Resolved Problems Problem Noted Date Resolved Date [...] as of this encounter (statuses as of 03/17/2021) Immunizations Name Administration Dates Next Due COVID-19 mRNA, LNP-s, No Pre serve, 2-Dose Series ([employer]) 12/16/2020,11/25/2020 Pneumococcal Conjugate Vacc, 13 Valent [...] Telephone Encounter - Jade Castillo MD - 03/17/2021 3:37 PM EDT Signed Prescriptions: Disp Refills Clopidogrel Bisulfate 75 MG Oral Tablet (p*90 Tab 1 Sig: TAKE 1 TABLET BY MOUTH EVERY DAY Authorizing Provider: JADE CASTILLO Ordering User: BRITTA SALDANA Nystatin 477413 UNIT/GM External Powder (N*45 g 1 Sig: APPLY TOPICALLY TO AFFECTED AREA 3 TIMES A DAY. Authorizing Provider: JADE CASTILLO * Telephone Encounter - Britta Saldana [facility] - 03/17/2021 3:25 PM EDT Pending Prescriptions: Disp Refills Nystatin 485426 UNIT/GM External Powder (*45 g 1 Sig: APPLY TOPICALLY TO AFFECTED AREA 3 TIMES A DAY. Signed Prescriptions: Disp Refills Clopidogrel Bisulfate 75 MG Oral Tablet (p*90 Tab 1 Sig: TAKE 1 TABLET BY MOUTH EVERY DAY Authorizing Provider: JADE CASTILLO Ordering User: BRITTA SALDANA< BR> * Telephone Encounter - Britta Saldana [facility] - 03/17/2021 3:25 PM EDT Telepharmacy is currently not authorized to approve refills for this class of medication per refillprotocol. Please approve if appropriate. Thanks, Britta Saldana, PharmD Clinical Pharmacist Telepharmacy 03/17/2021, 3:25 PM * Telephone Encounter - Britta Saldana RPh - 03/17/2021 3:23 PM EDT Pending Prescriptions: Disp Refills Nystatin 797051 UNIT/GM External Powder (*45 g 1 Sig: APPLY TOPICALLY TO AFFECTED AREA 3 TIMES A DAY. Last Office/Telemedicine Visit: 12/22/2020 Next Office Visit: No Future Appointments If no future appointments scheduled, and last appointment is greater than a year ago, please schedule patient for a follow-up appointment Last date the medication was ordered: 02/26/20 Pharmacy: [id number] [id number] [facility] Is this request for a controlled substance? No Urine Drug Screen:No results found for this [...] Specialty Care Team Description 03/27/2021 Home Visit [facility] Corrina Layne RN [address] 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
--- OUTSIDE RECORDS SUMMARY | 2023-06-07 07:58 | External Medical Summary ---
Author Name Unknown Address Unknown Organization K01:[facility] - [address] [place] [address] Laboratory Report Ordering Provider Test Date Status GUSTAVO KNAPP 12/26/2020 08:53:04 Alessandra l Observation Date Value Abnormality Reference (Units ) Status Triglyceride 12/26/2020 08:53:04 109 <=174 ( mg/dL) Final Performing Location [facility] - [address] [place] [address]
--- OUTSIDE RECORDS SUMMARY | 2023-06-07 07:58 | External Medical Summary | Summary of Care ---
Author Name Unknown Organization [place] [address] Care Team Providers Care Financial Economist Name Role Phone Yariel Cardoza MD Primary Care Provide r Reason for Visit * Reason Onset Date Comments Med Request 01/09/2021 Encounter Details Date Type Department Care Team Description 01/09/2021 Telephone Internal Medicine [address] [place] [address] Yariel Cardoza MD [address] [place] [address] [place] [phone] Med Request Allergies Active Allergy Reactions Severity Noted Date Comments Adhesive Tape 06/29/2003 Sensitive to Naproxen Hives 05/28/2015 Ivp Dye Hives 08/20/2000 Latex Other (Please comment) 01/05/2015 Contact rash Ibuprofen Rash 01/05/2015 documented as of this encounter (statuses as of 01/10/2021) Medications Medication Sig Dispensed Refills Start Date [...] Take 0.4 mg by mouth daily. Per [facility] 0 06/09/2019 Active ondansetron (ZOFRAN) 4 MG Tablet Take 4 mg by mouth every 6 hours as needed for Nausea. Per [facility] 0 06/09/2019 Active nystatin (NYSTOP) 690334 UNIT/GM powderIndications: Candidal skin infection Apply topically to affected area [...] mouth. 0 Active furosemide (LASIX) 20 MG TabletIndications: Bilateral edema of lower extremity,Pulmonar y hypertension (HCC) TAKE 1 TABLET BY MOUTH DAILY NEEDED (SWELLING). FOR FLUID ACCUMULATION OR WEIGHT GAIN 30 Tab 5 03/17/2020 Active albuterol-ipratrop ium (DUONEB) 2.5-0.5 MG/3ML nebulizer solutionIndication s:COPD, severe (HCC) INHALE 3 MLS VIA NEBULIZER EVERY 4 HOURS NEEDED FOR COUGH, SHORTNESS OF BREATH OR WHEEZING. 360 mL 1 04/11/2020 Active amLODIPine (NORVASC) 2.5 MG TabletIndications: HTN, goal below 140/90 TAKE 1 TABLET BY MOUTH EVERY DAY 90 Tab 3 04/30/2020 Active omeprazole (PRILOSEC) 20 MG CPDRIndications:Ga stroesophageal reflux disease without esophagitis Take 2 Caps by mouth daily. 180 Cap 1 06/03/2020 Active hydroCHLOROthiazid e 25 MG Oral Tablet (HYDRODIURIL) TAKE 1 TABLET BY MOUTH EVERY DAY 90 Tab 2 07/24/2020 Active Potassium Chloride ER 10 MEQ Oral Tablet Extended Release TAKE 1 TABLET BY MOUTH EVERY DAY 90 Tab 2 09/10/2020 Active Amitriptyline HCl 25 MG Oral Tablet (ELAVIL)Indication s:Irritable bowel syndrome with both constipation and diarrhea,Moderate episode of recurrent major depressive disorder (HCC) TAKE 1 TABLET BY MOUTH EVERYDAY AT BEDTIME 90 Tab 3 09/16/2020 Active Sertraline HCl 50 MG Oral Tablet (ZOLOFT)Indication s:Moderate episode of recurrent major depressive disorder [...] mouth daily. 90 Tab 1 01/09/2021 Active Atorvastatin Calcium 40 MG Oral Tablet (LIPITOR) 0 09/23/2020 1 Discontinue d(Refill) documented as of this encounter (statuses as of 01/10/2021) Active Problems Problem Noted Date Schatzki's ring [...] as of this encounter (statuses as of 01/10/2021) Resolved Problems Problem Noted Date Resolved Date [...] as of this encounter (statuses as of 01/10/2021) Immunizations Name Administration Dates Next Due COVID-19 mRNA, LNP-s, No Pre serve, 2-Dose Series ([employer]) 12/16/2020,11/25/2020 Pneumococcal Conjugate Vacc, 13 Valent (Prevnar) 09/21/2015 Pneumococcal Polysaccharide PPV23 (Pneumovax) Seasonal Influenza, Quadriva lent, No Preserve, 6 Mons & Above, IM 07/28/2018,07/31/2017 Seasonal Influenza, Quadriva lent, No Preserve, Adjuvanted, 65+ Yrs, IM 08/12/2020 Seasonal Influenza, Quadrivalent, No Preserve, I M 07/21/2016,07/20/2015 Seasonal Influenza, Trivalent, Adjuvanted, 65+ y rs 07/10/2019 Seasonal Influenza, Trivalen t, with Preserve, 3yr & Above, Split 08/17/2006,08/05/2003 TD - Tetanus/Diptheria (ADULT) 05/03/2004 0 05/03/2014 [...] Telephone Encounter - Yariel Cardoza MD - 01/09/2021 3:09 PM EDT Sent to pharmacy * Telephone Encounter - Allie Daugherty CPhT - 01/09/2021 11:30 AM EDT patient calling requesting the following medication below that is listed as "Historical". The following information was provided: Medication Name: Atorvastatin Strength: 40mg Directions: 1 tablet daily Preferred Quantity: 90 Previous Prescriber: Sony Preferred Pharmacy: [facility] Patient needs refill ordered today Please review and approve if appropriate. 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
--- OUTSIDE RECORDS SUMMARY | 2023-06-07 07:58 | External Medical Summary ---
Author Name Unknown Address Unknown Organization K01[facility] [place] [address] [facility] [place] [address] Laboratory Report Ordering Provider Test Date Status GUSTAVO KNAPP 12/26/2020 08:53:04 Alessandra l Observation Date Value Abnormality Reference (Units ) Status SYNC LEUKOCYTES IN BLOOD BY AUTOMATED COUNT 12/26/2020 08:53:04 6.82 4.00-10.80 (K/uL) Final Segs 12/26/2020 08:53:04 66.1 40.0-75.0 (%) Final Lymphs % 12/26/2020 08:53:04 20.5 18.0-42.0 (%) Final Monos 12/26/2020 08:53:04 9.5 1.0-11.0 (%) Final Eosinophils 12/26/2020 08:53:04 2.9 0.0-6.0 (%) Final Basos 12/26/2020 08:53:04 0.6 0.0-2.0 (%) Final Immature Granulocyte, Percent 12/26/2020 08:53:04 0.4 0.0-2.0 (%) Final Absolute Segs 12/26/2020 08:53:04 4.50 1.80-7.70 (K/uL) Final Lymphs, absolute 12/26/2020 08:53:04 1.40 1.00-4.80 (K/ul) Final Monos, Abs 12/26/2020 08:53:04 0.65 0.00-1.10 (K/uL) Final Eos, Abs 12/26/2020 08:53:04 0.20 0.00-0.70 (K/uL) Final Basos, Abs 12/26/2020 08:53:04 0.04 0.00-0.20 (K/uL) Final Immature Granulocytes, Number 12/26/2020 08:53:04 0.03 0.00-0.20 (K/uL) Final Performing Location [facility] [address] [place] [address]
--- OUTSIDE RECORDS SUMMARY | 2023-06-07 07:58 | External Medical Summary | Summary of Care ---
Author Name Unknown Organization [place] [address] Care Team Providers Care Public Area Attendant Name Role Phone Yariel Cardoza MD Primary Care Provide r Reason for Visit * Reason Onset Date Comments Test Results 12/26/2020 Encounter Details Date Type Department Care Team Description 12/26/2020 Telephone Internal Medicine [address] [place] [address] Jade Castillo MD [address] [place] [address] [place] [phone] Test Results Allergies Active Allergy Reactions Severity Noted Date Comments Adhesive Tape 06/29/2003 Sensitive to Naproxen Hives 05/28/2015 Ivp Dye Hives 08/20/2000 Latex Other (Please comment) 01/05/2015 Contact rash Ibuprofen Rash 01/05/2015 documented as of this encounter (statuses as of 12/26/2020) Medications Medication Sig Dispensed Refills Start Date [...] Take 0.4 mg by mouth daily. Per [facility] ER 0 06/09/2019 Active ondansetron (ZOFRAN) 4 MG Tablet Take 4 mg by mouth every 6 hours as needed for Nausea. Per [facility] ER 0 06/09/2019 Active nystatin (NYSTOP) 084174 UNIT/GM powderIndications:C andidal skin infection Apply topically to affected area [...] 3 04/30/2020 Active omeprazole (PRILOSEC) 20 MG CPDRIndications:Gas troesophageal reflux disease without esophagitis Take 2 Caps by mouth daily. 180 Cap 1 06/03/2020 Active hydroCHLOROthiazide 25 MG Oral Tablet (HYDRODIURIL) [...] Active Sertraline HCl 50 MG Oral Tablet (ZOLOFT)Indications :Moderate episode of recurrent major depressive disorder (HCC) TAKE 1 TABLET BY MOUTH EVERY DAY 90 Tab 1 09/16/2020 Active Atorvastatin Calcium 40 MG Oral Tablet (LIPITOR) 0 09/23/2020 Active Atenolol 25 MG Oral Tablet (Tenormin) [...] mouth daily. 30 Tab 2 12/22/2020 Active documented as of this encounter (statuses as of 12/26/2020) Active Problems Problem Noted Date Schatzki's ring [...] as of this encounter (statuses as of 12/26/2020) Resolved Problems Problem Noted Date Resolved Date [...] as of this encounter (statuses as of 12/26/2020) Immunizations Name Administration Dates Next Due COVID-19 mRNA, LNP-s, No Pre serve, 2-Dose Series ([employer]) 12/16/2020,11/25/2020 Pneumococcal Conjugate Vacc, 13 Valent [...] Telephone Encounter - Jade Castillo MD - 12/26/2020 6:20 PM EDT Please call the pt Your blood count, kidney function, and cholesterol labs are normal - Your diabetic screening test showed you are prediabetic. Please decrease your sugar and carbs (ex: rice, bread, pizza, pasta ) intake. 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
--- OUTSIDE RECORDS SUMMARY | 2023-06-07 07:58 | External Medical Summary ---
Author Name Unknown Address Unknown Organization K01:[facility] [place] - [address] [place] [address] Laboratory Report Ordering Provider Test Date Status GUSTAVO KNAPP 12/26/2020 08:53:04 Alessandra l Observation Date Value Abnormality Reference (Units ) Status BUN 12/26/2020 08:53:04 17 6-20 (mg/dL) Final Creatinine 12/26/2020 08:53:04 0.9 0.5-1.0 (mg/dL) Final Glomerular filtration rate/1.73 sq M.predicted [Volume Rate/Area] in Serum, Plasma or Blood by Creatinine-based formula (CKD-EPI) 12/26/2020 08:53:04 61.9 >=60.0 (mL/min) Final Performing Location [facility] - [address] [place] [address]
--- OUTSIDE RECORDS SUMMARY | 2023-06-07 07:58 | External Medical Summary ---
Author Name Unknown Address Unknown Organization K01:LABORATORY [facility] - [facility] [address] [place] [address] Laboratory Report Ordering Provider Test Date Status GUSTAVO KNAPP 12/26/2020 08:53:04 Alessandra l Observation Date Value Abnormality Reference (Units ) Status WBC, Total 12/26/2020 08:53:04 6.82 4.00-10.80 (K/uL) Final RBC 12/26/2020 08:53:04 5.14 3.85-5.15 (M/uL) Final Hemoglobin 12/26/2020 08:53:04 14.6 12.0-15.3 (g/dL) Final HCT 12/26/2020 08:53:04 49.1 Above high normal 36.0-45.2 (%) Final MCV 12/26/2020 08:53:04 95.5 81.5-97.5 (fL) Final MCH 12/26/2020 08:53:04 28.4 27.0-34.0 (pg) Final MCHC 12/26/2020 08:53:04 29.7 Below low normal 32.0-36.0 (g/dL) Final RDW 12/26/2020 08:53:04 14.4 11.5-15.5 (%) Final MPV 12/26/2020 08:53:04 9.8 6.6-11.1 (fL) Final Nucleated erythrocytes/100 leukocytes [Ratio] in Blood by Automated count 12/26/2020 08:53:04 0 <=0 (/100 WBCs) Final Platelets 12/26/2020 08:53:04 195 140-400 (K/uL) Final Performing Location LABORATORY [facility] - [address] [place] [address]
--- OUTSIDE RECORDS SUMMARY | 2023-06-07 07:58 | External Medical Summary | Summary of Care ---
Author Name Unknown Organization [place] [address] Care Team Providers Care Irrigationist Designer Name Role Phone Yariel Cardoza MD Primary Care Provide r Reason for Visit * Reason Onset Date Comments Test Results 12/28/2020 Encounter Details Date Type Department Care Team Description 12/28/2020 Telephone Internal Medicine [address] [place] [address] Jade Castillo MD [address] [place] [address] [place] [id number] Test Results Allergies Active Allergy Reactions Severity Noted Date Comments Adhesive Tape 06/29/2003 Sensitive to Naproxen Hives 05/28/2015 Ivp Dye Hives 08/20/2000 Latex Other (Please comment) 01/05/2015 Contact rash Ibuprofen Rash 01/05/2015 documented as of this encounter (statuses as of 12/28/2020) Medications Medication Sig Dispensed Refills Start Date [...] Take 0.4 mg by mouth daily. Per [facility] 0 06/09/2019 Active ondansetron (ZOFRAN) 4 MG Tablet Take 4 mg by mouth every 6 hours as needed for Nausea. Per [facility] ER 0 06/09/2019 Active nystatin (NYSTOP) 210891 UNIT/GM powderIndications:C andidal skin infection Apply topically [...] as of this encounter (statuses as of 12/28/2020) Active Problems Problem Noted Date Schatzki's ring [...] as of this encounter (statuses as of 12/28/2020) Resolved Problems Problem Noted Date Resolved Date [...] as of this encounter (statuses as of 12/28/2020) Immunizations Name Administration Dates Next Due COVID-19 mRNA, LNP-s, No Pre serve, 2-Dose Series ([employer]) 12/16/2020,11/25/2020 Pneumococcal Conjugate Vacc, 13 Valent (Prevnar) [...] Telephone Encounter - Jade Castillo MD - 12/28/2020 2:04 PM EDT Please call the pt Your diabetic screening test showed your are prediabetic ----please decrease your sugar and carbs (ex: pizza, pasta, rice, bread) intake & we will repeat the lab in 6-12 months Blood count, kidney functions and thyroid labs are normal documented in this encounter Plan of Treatment Upcoming Encounters Date Type Specialty Care Team Description 12/30/2020 [facility] Corrina [place]ne RN [address] [facility] [place] [address] [phone] 03/24/2021 Office Visit Internal Medicine Jade Castillo MD [address] [place] [address] [place] [address] [phone] Health Maintenance Due Date Last Done Comments [...] Documents on File Type Date Recorded Patient Occupational Medicine Specialist Expl 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
--- OUTSIDE RECORDS SUMMARY | 2023-06-07 07:58 | External Medical Summary | Summary of Care ---
Author Name Unknown Organization [place] [address] Care Team Providers Care Sample Maker Name Role Phone Yariel Cardoza MD Primary Care Provide r Reason for Visit * Reason Onset Date Comments Test Results 12/28/2020 Encounter Details Date Type Department Care Team Description 12/28/2020 Telephone Internal Medicine [address] [place] [address] Jade Castillo MD [address] [place] [address] [place] [id number] Test Results Allergies Active Allergy Reactions Severity [...] Take 0.4 mg by mouth daily. Per [facility] ER 0 06/09/2019 Active ondansetron (ZOFRAN) 4 MG Tablet Take 4 mg by mouth every 6 hours as needed for Nausea. Per [facility] ER 0 06/09/2019 Active nystatin (NYSTOP) 815819 UNIT/GM powderIndications:C andidal skin infection Apply topically [...] mRNA, LNP-s, No Pre serve, 2-Dose Series ([employer]) 12/16/2020,11/25/2020 Pneumococcal Conjugate Vacc, 13 Valent (Prevnar) [...] encounter Miscellaneous Notes * Telephone Encounter - Maria Antonia Whiteside LPN - 12/28/2020 2:41 PM EDT Message given to pt * Telephone Encounter - Jade Castillo MD [...] Specialty Care Team Description 12/30/2020 [facility]rina [place], [facility] [place] [address] [phone] 03/24/2021 Office Visit Internal Medicine Jade Castillo MD [address] [place] [address] [place] [address] [phone] Health Maintenance Due Date Last Done Comments [...] Documents on File Type Date Recorded Patient Supervisor Special Services Expl 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
--- OUTSIDE RECORDS SUMMARY | 2023-06-07 07:58 | External Medical Summary ---
Author Name Unknown Address Unknown Organization K01:LAB[facility]ATORY [facility] [place] - [address] [place] [address] Laboratory Report Ordering Provider Test Date Status JACKIELOYDAGUSTAVO 12/26/2020 08:53:04 Alessandra l Observation Date Value Abnormality Reference (Units ) Status HbA1C 12/26/2020 08:53:04 6.0 Above high normal 4. 0-5.6 (%) Final Performing Location [facility]ATORY [facility] - [address] [place] [address]
--- OUTSIDE RECORDS SUMMARY | 2023-06-07 07:58 | External Medical Summary | Summary of Care ---
Author Name Unknown Organization [place] [address] Care Team Providers Care Physician President Name Role Phone Yariel Cardoza MD Primary Care Provide r Reason for Visit * Reason Onset Date Comments Test Results 12/26/2020 Encounter Details Date Type Department Care Team Description 12/26/2020 Telephone Internal Medicine [address] [place] [address] Jade Castillo MD [address] [place] [address] [place] [id number] Test Results Allergies Active Allergy Reactions Severity Noted Date Comments Adhesive Tape 06/29/2003 Sensitive to Naproxen Hives 05/28/2015 Ivp Dye Hives 08/20/2000 Latex Other (Please comment) 01/05/2015 Contact rash Ibuprofen Rash 01/05/2015 documented as of this encounter (statuses as of 12/27/2020) Medications Medication Sig Dispensed Refills Start Date [...] 0.4 mg by mouth daily. Per [facility] 0 06/09/2019 Active ondansetron (ZOFRAN) 4 MG Tablet Take 4 mg by mouth every 6 hours as needed for Nausea. Per [facility] ER 0 06/09/2019 Active nystatin (NYSTOP) 989996 UNIT/GM powderIndications:C andidal skin infection Apply topically [...] as of this encounter (statuses as of 12/27/2020) Active Problems Problem Noted Date Schatzki's ring [...] as of this encounter (statuses as of 12/27/2020) Resolved Problems Problem Noted Date Resolved Date [...] as of this encounter (statuses as of 12/27/2020) Immunizations Name Administration Dates Next Due COVID-19 mRNA, LNP-s, No Pre serve, 2-Dose Series ([employer]) 12/16/2020,11/25/2020 Pneumococcal Conjugate Vacc, 13 Valent (Prevnar) [...] Encounter - Maria Antonia Whiteside LPN - 12/27/2020 9:28 AM EDT Message given to pt * Telephone [...] Specialty Care Team Description 12/30/2020 [facility]rina [place], [facility] [place] [address] [phone] 03/24/2021 Office Visit Internal Medicine Jade Castillo MD [address] [place] [address] [place] [address] [phone] Health Maintenance Due Date Last Done Comments [...] Documents on File Type Date Recorded Patient Service Order Clerk Expl 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
--- OUTSIDE RECORDS SUMMARY | 2023-06-07 07:58 | External Medical Summary | Summary of Care ---
Author Name Unknown Organization [place] [address] Care Team Providers Care Librarian Special Library Name Role Phone Yariel Cardoza MD Primary Care Provide r Reason for Visit * Reason Comments [facility]: Maintenance Encounter Details Date Type Department Care Team Description 12/30/2020 [facility] Visit [facility], [facility] [address] [place] [address] Corrina Layne RN [facility] [place] [address] [phone] Allergies Active Allergy Reactions Severity Noted Date Comments Adhesive Tape 06/29/2003 Sensitive to Naproxen Hives 05/28/2015 Ivp Dye Hives 08/20/2000 Latex Other (Please comment) 01/05/2015 Contact rash Ibuprofen Rash 01/05/2015 documented as of this encounter (statuses as of 01/02/2021) Medications Medication Sig Dispensed Refills Start Date [...] 0.4 mg by mouth daily. Per [facility] ER 0 06/09/2019 Active ondansetron (ZOFRAN) 4 MG Tablet Take 4 mg by mouth every 6 hours as needed for Nausea. Per [facility] ER 0 06/09/2019 Active nystatin (NYSTOP) 792030 UNIT/GM powderIndications:C andidal skin infection Apply topically [...] as of this encounter (statuses as of 01/02/2021) Active Problems Problem Noted Date Schatzki's ring [...] as of this encounter (statuses as of 01/02/2021) Resolved Problems Problem Noted Date Resolved Date [...] as of this encounter (statuses as of 01/02/2021) Immunizations Name Administration Dates Next Due COVID-19 [...] Sign Reading Time Taken Comments Blood Pressure 114/64 12/30/2020 10:04 AM EDT Pulse 72 12/30/2020 10:04 AM EDT Temperature 36.6 C (97.8 F) 12/30/2020 10:04 AM E DT Respiratory Rate 18 12/30/2020 10:04 AM EDT Oxygen Saturation 92% 12/30/2020 10:04 AM EDT RA Inhaled Oxygen Concentration - - Weight - - Height - - Body Mass Index - - documented in this encounter Progress Notes * Corrina Layne RN - 12/30/2020 9:49 AM EDT [facility] [employer] Front Office Developer Monthly Visit Date: 12/30/2020 Time: 9:49 AM Name: Jayla Hayes : 1945 Current Concerns: Pt being seen for routine monthly visit. Copd symptoms stable at this time. ibs symptoms improved. TIA-no further neuro symptoms. Taking plavix for life. Has lesion in the mouth. Seeing oral surgeon, in [place]. To not wear dentures x 2 weeks, return visit for 01/03/21 for evaluation, biopsy. Physical Exam: BP 114/64 (BP Site: Left Arm, BP Position: Sitting, BP Cuff Size: Regular) | Pulse 72 | Temp 36.6 C (97.8 F) (Tympanic) | Resp 18 | SpO2 92% Comment: RA Pain 0 Physical Exam HENT: Mouth/Throat: Mouth: Mucous membranes are dry. Comments: Mouth lesion on left bottom Cardiovascular: Rate and Rhythm: Normal rate. Pulses: Normal pulses. Pulmonary: Effort: Pulmonary effort is normal. Breath sounds: Normal breath sounds. Abdominal: General: Bowel sounds are normal. There is no distension. Palpations: Abdomen is soft. Musculoskeletal: Right lower leg: No edema. Left lower leg: No edema. Skin: General: Skin is warm and dry. Neurological: Mental Status: She is alert. Psychiatric: Mood and Affect: Mood normal. Behavior: Behavior normal. Thought Content: Thought content normal. Judgment: Judgment normal. Problems/Symptoms: Review of Systems Constitutional: Negative for chills and fever. HENT: Positive for mouth sores (mouth lesion ). Respiratory: Positive for shortness of breath (at baseline- dyspnea with steps ). Negative for cough and wheezing. Cardiovascular: Negative. Gastrointestinal: Negative. Genitourinary: Negative for difficulty urinating. Musculoskeletal: Positive for arthralgias. Skin: Negative. Neurological: Negative for dizziness, weakness and light-headedness. Hematological: Negative. Psychiatric/Behavioral: Negative. Medication Reconciliation: (See medication list) Does patient take medications as ordered: Yes Patient Well Being: PHQ2/9: No questionnaires available. Mood stable. Denies falls 3 Red Flags increased sob, increased cough/wheezing [...] once a week Educated on home safety: ? Create a fall proof home o Clear [...] and sidewalks free of snow and ice. ? Using aids to support and prevent falls o If you have poor balance or have fallen in the past, consider additional support such as a cane or walker. o Use a cane with good support and that is the proper length for you. o Use a walker if a cane doesnt provide enough support. ? Avoid medications that increase the risk of falling by causing dizziness, change in sensation or slowed reflexes. o Certain medicines may cause falls blood pressure pills, heart medicines, water pills, or sleeping pills. o Be sure to understand each medicine that you are taking and any side effects that may occur. ? Improve your balance and flexibility with muscle strengthening exercises. Ask your health care provider for some exercises that will be right for you. Reinforced safety education and fall prevention. and Reinforced medication regimen. Timing., Dosing. and Purspose. Treatment/Plan: Continue meds as ordered Continue plavix for life Fall precautions Low sodium diet Monitor bp bid and record RNCM return in one month or sooner if needed Home Interventions Provided: Reinforced current Plan of Care, including self-management and medication regimen Patient Needs to Remember: Call [facility] at with any new or worsening health concerns or problems, red flag symptoms. Follow Up: Patient encouraged to call the intake phone number for all urgent but not emergent issues. Is the patient new to [facility] within the last 30 days? No, Assess appropriateness for upcoming telehealth visits. Cancel telehealth visits & schedule home visit with care recruiting team lead(s)as indicated. Provider is in agreement with Plan of Care: Yes Scheduled to follow up with patient in 1 month. Corrina [place]ne RN 12/30/2020 9:49 AM documented in this encounter Plan of Treatment Upcoming Encounters Date Type Specialty Care Team Description 01/27/2021 Home Visit [facility] Corrina [place]ne RN [facility] [place] [address] [phone] 03/24/2021 Office Visit Internal Medicine Jade Castillo MD [address] [place] [address] [place] [address] [phone] Health Maintenance Due Date Last Done Comments [...] on File Type Date Recorded Patient Senior Php Software Developer Expl anation Advanced Directive Advanced [...]
--- OUTSIDE RECORDS SUMMARY | 2023-06-07 07:58 | External Medical Summary | Summary of Care ---
Author Name Unknown Organization [place] [address] Care Team Providers Care Communications Professional Name Role Phone Yariel Cardoza MD Primary Care Provide r Reason for Visit * Reason Comments [facility]: Maintenance Encounter Details Date Type Department Care Team Description 01/27/2021 Home Visit [facility], [facility] [address] [place] [address] Corrina [place]ne RN 132 [facility] [place] [address] [phone] Allergies Active Allergy Reactions Severity Noted Date Comments Adhesive Tape 06/29/2003 Sensitive to Naproxen Hives 05/28/2015 Ivp Dye Hives 08/20/2000 Latex Other (Please comment) 01/05/2015 Contact rash Ibuprofen Rash 01/05/2015 documented as of this encounter (statuses as of 01/28/2021) Medications Medication Sig Dispensed Refills Start Date [...] Take 0.4 mg by mouth daily. Per [facility] ER 0 06/09/2019 Active ondansetron (ZOFRAN) 4 MG Tablet Take 4 mg by mouth every 6 hours as needed for Nausea. Per [facility] ER 0 06/09/2019 Active nystatin (NYSTOP) 938456 UNIT/GM powderIndications:C andidal skin infection Apply topically [...] mouth daily. 90 Tab 1 01/09/2021 Active documented as of this encounter (statuses as of 01/28/2021) Active Problems Problem Noted Date Schatzki's ring [...] as of this encounter (statuses as of 01/28/2021) Resolved Problems Problem Noted Date Resolved Date [...] as of this encounter (statuses as of 01/28/2021) Immunizations Name Administration Dates Next Due COVID-19 [...] Sign Reading Time Taken Comments Blood Pressure 118/64 01/28/2021 12:10 PM EDT Pulse 72 01/28/2021 12:10 PM EDT Temperature 37 C (98.6 F) 01/28/2021 12:10 PM EDT Respiratory Rate 18 01/28/2021 12:10 PM EDT Oxygen Saturation 96% 01/28/2021 12:10 PM EDT Inhaled Oxygen Concentration - - Weight - - Height - - Body Mass Index - - documented in this encounter Progress Notes * Corrina [place]ne RN - 01/28/2021 12:08 PM EDT [facility] Insole Department Worker Monthly Visit Date: 01/28/2021 Time: 12:08 PM Name: Jayla Hayes : 1945 Current Concerns: Pt being seen for routine home visit related to COPD, IBS, TIA. Copd sxs stable. No recent exacerbations. Taking meds as ordered. Has follow up with pulmonology inSeptember. Was just seen in office. Follows with [facility]. TIA- no further symptoms. bp wnl. No headaches. Taking plavix. Last visit was following up with oral surgeon for lesion in mouth. Lesion resolved after not wearing dentures x 2 weeks. Has been working with dentist to get better fit with dentures. Will schedule for 6 week return. Physical Exam: BP 118/64 (BP Site: Left Arm, BP Position: Sitting, BP Cuff Size: Regular) | Pulse 72 | Temp 37 C(98.6 F) (Tympanic) | Resp 18 | SpO2 96% Pain 0 Physical Exam Cardiovascular: Rate and Rhythm: Normal rate. Pulses: Normal pulses. Pulmonary: Effort: Pulmonary effort is normal. Breath sounds: Normal breath sounds. Abdominal: General: Bowel sounds are normal. There is no distension. Palpations: Abdomen is soft. Musculoskeletal: Right lower leg: No edema. Left lower leg: No edema. Neurological: Mental Status: She is alert and oriented to person, place, and time. Problems/Symptoms: Review of Systems Constitutional: Negative for chills and fever. Respiratory: Negative for cough, shortness of breath and wheezing. Cardiovascular: Negative for chest pain, palpitations and leg swelling. Gastrointestinal: Negative for abdominal distention, blood in stool, diarrhea, nausea and vomiting. Genitourinary: Negative for difficulty urinating and dysuria. Medication Reconciliation: (See medication list) Does patient take medications as ordered: Yes Advanced Care Planning: Living Will. Patient's Goals of Care: 3 Red Flags increased sob, increased cough/wheezing not relived by nebs, fever Goals of care: 1. to stay out of the hospital 2. to spend time with family 3.get GI sxs under better control-IBS 3 Red Flags increased sob, increased cough/wheezing not relived by nebs, fever Reinforcement/Education: COPD: Pt instructed to: -Call with [...] medication regimen Patient Needs to Remember: Call [facility] at with any new or worsening health concerns or problems, red flag symptoms. Follow Up: Patient encouraged to call the intake phone number for all urgent but not emergent issues. Is the [facility] new to [facility] within the last 30 days? No, Assess appropriateness for upcoming telehealth visits. Cancel telehealth visits & schedule home visit with care steam finisher(s)as indicated. Provider is in agreement with Plan of Care: Yes Scheduled to follow up with patient in 6 weeks. Corrina [place]ne RN 01/28/2021 12:08 PM documented in this encounter Plan of Treatment Upcoming Encounters Date Type Specialty Care Team Description 03/24/2021 Office Visit Internal Medicine Jade Castillo MD [address] [place] [address] [place] [address] 03/27/2021 [facility] Visit [facility] [place] [place] [address] [phone] Health Maintenance Due Date Last Done Comments [...] Documents on File Type Date Recorded Patient Loaf Counter Expl 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
--- OUTSIDE RECORDS SUMMARY | 2023-06-07 07:58 | External Medical Summary ---
Author Name Unknown Address Unknown Organization K01:LABORATORY [facility] [place] - [address] [place] [address] Laboratory Report Ordering Provider Test Date Status GALINDO KNAPPJACOB 12/26/2020 08:53:04 Alessandra l Observation Date Value Abnormality Reference (Units ) Status TSH 12/26/2020 08:53:04 1.31 0.27-4.20 (uIU/mL) Final Performing Location [facility] - [address] [place] [address]
--- OUTSIDE RECORDS SUMMARY | 2023-06-07 07:59 | External Medical Summary | Summary of Care ---
Author Name Unknown Organization [place] [address] Care Team Providers Care [employer] Director Name Role Phone Yariel Cardoza MD Primary Care Provide r Reason for Visit * Reason Onset Date Comments Advice 12/19/2020 Plavix Encounter Details Date Type Department Care Team Description 12/19/2020 Telephone Internal Medicine [address] [place] [id number] Yariel Cardoza MD [address] [place] [address] [place] [id number] Advice (Plavix) Allergies Active Allergy Reactions Severity Noted Date Comments Adhesive Tape 06/29/2003 Sensitive to Naproxen Hives 05/28/2015 Ivp Dye Hives 08/20/2000 Latex Other (Please comment) 01/05/2015 Contact rash Ibuprofen Rash 01/05/2015 documented as of this encounter (statuses as of 12/19/2020) Medications Medication Sig Dispensed Refills Start Date [...] hours as needed for cough 0 Active dicyclomine (BENTYL) 10 MG CapsuleIndications :Irritable bowel syndrome with both constipation and diarrhea Take 1 Cap by mouth 4 times a day as needed (abdominal pain, cramping). for abdominal pain 120 Cap 5 03/06/2019 Active meclizine (ANTIVERT) 25 MG Tablet TAKE 1 TABLET BY MOUTH ONCE EVERY 6 HOURS NEEDED FOR DIZZINESS/VERTIGO 10 Tab 0 06/05/2019 Active Cholecalciferol 1000 units Capsule Take 2,000 Units by mouth daily. 0 Active tamsulosin (FLOMAX) 0.4 MG Capsule Take 0.4 mg by mouth daily. Per [facility] 0 06/09/2019 Active ondansetron (ZOFRAN) 4 MG Tablet Take 4 mg by mouth every 6 hours as needed for Nausea. Per [facility] 0 06/09/2019 Active Sennosides (SENNA) 8.6 MG CAPS Take 1 Cap by mouth as needed for Constipation (1 cap up to two times daily for constipation). 0 06/12/2019 Active HYDROcodone-acetam inophen 5-325 mg per tab 5-325 MG per tablet 0 07/14/2019 Active nystatin (NYSTOP) 089833 UNIT/GM powderIndications: Candidal skin infection Apply topically [...] EVERY DAY 16 mL 1 10/21/2020 Active Aspirin 81 MG Oral Tablet Chewable Take 1 Tab by mouth daily. with food. 0 12/19/2020 Active Clopidogrel Bisulfate 75 MG Oral Tablet (pLAVix) TAKE 1 TABLET BY MOUTH EVERY MORNING 90 Tab 1 11/22/2020 1 Discontinue d(End of Procedure) documented as of this encounter (statuses as of 12/19/2020) Active Problems Problem Noted Date Moderate episode of recurrent major depr essive disorder 06/19/2019 HTN, goal below 140/90 08/09/2017 Pulmonary hypertension 05/07/2017 Lumbar spinal stenosis 02/18/2017 Primary osteoarthritis of [...] as of this encounter (statuses as of 12/19/2020) Resolved Problems Problem Noted Date Resolved Date Impaired fasting glucose 03/15/2017 018 Thyroid nodule [...] as of this encounter (statuses as of 12/19/2020) Immunizations Name Administration Dates Next Due Pneumococcal Conjugate Vacc, 13 Valent (Prevnar) 09/21/2015 [...] encounter Miscellaneous Notes * Addendum Note - Maria Antonia Meier LPN - 12/19/2020 2:48 PM EDT Addended by: MARIA ANTONIA MEIER on: 12/19/2020 02:48 PM Modules accepted: Orders * Telephone Encounter - Maria Antonia Meier LPN - 12/19/2020 2:48 PM EDT Message given to pt * Telephone Encounter - Yariel Cardoza MD - 12/19/2020 1:47 PM EDT Please advise patient of below. According to her chart, she was not on baby aspirin until after shewas in the hospital this past September 2020 with the mini stroke. If that is the case, she can stopthe Plavix and take the aspirin 81 mg for the rest of her life and would not stop the aspirin for the teeth procedure. * Telephone Encounter - Ashley Birmingham PA-C - 12/19/2020 1:37 PM EDT If she was on aspirin prior to the event she should continue plavix for a lifetime. If not on aspirin it would be aspirin for a life time. We recommend 21 days of DAPT and then a single agent. Hope this helps. Ashley Birmingham PA-C 12/19/2020 1:39 PM * Telephone Encounter - Yariel Cardoza MD - 12/19/2020 1:23 PM EDT According to the neurologist office note from October, she was to take Plavix until October 15 andthen stop it and take aspirin 81 mg for life. The hospital discharge indicated aspirin and Plavix for 3 weeks (from end of September) and then take Plavix longterm. Will send to neurology to clarify. * Telephone Encounter - Oanh Chacon OSA - 12/19/2020 12:55 PM EDT Patient called stating she is having issues with her lower gum and her oral surgeon had her take her bottom teeth out for a couple weeks and will re evaluate her on 01/03/21. After evaluating her if she is no better he will want to do a biopsy and it would be at that time that she would be asked to stop taking her Plavix for one week. Patient wants to know if Dr. Cardoza is ok with her stopping thePlavix for one week? Please advise patient brittney [phone] documented in this encounter Plan of Treatment Upcoming Encounters Date Type Specialty Care Team Description 12/22/2020 Office Visit Internal Medicine Jade Castillo MD [address] [place] [address] [place] [address] 12/30/2020 [facility] Corrina Layne RN [address] [facility] [place] [address] [phone] Health Maintenance Due Date Last Done Comments Zoster Vaccines (1 of 2) 1993 *ADVANCE DIRECTIVE NOT ON FILE 12/23/2015 *DEPRESSION SCREENING,ANNUAL FOR PTS 12 AND OVER 08/14/2020 COLONOSCOPY-EVERY 3 YRS AGES 18-100 03/26/2021 03/26/2018, 03/08/2015 Dexa Scan 08/17/2022 08/17/2015 DIABETES SCREEN EVERY 3 YRS-AGE 45 AND ABOVE 09/22/2023 09/22/2020, 09/20/2020, 05/06/2020, Additional history exists DTaP,Tdap,and Td Vaccines (2 - Td) 04/19/2028 04/19/2018, 05/03/2004, 05/03/2004 Pneumococcal Vaccine: 65+ Years Completed 03/28/2017, 09/21/2015 Influenza Vaccine (FLU shot) Completed 03/2020, 07/10/2019, 07/10/2019, Additional history exists MENINGOCOCCAL (MENACTRA/MENVEO) Aged Out No longer eligible based on patient's age to complete this topic documented as of this encounter Implants Not on filedocumented as of this encounter Advance Directives Documents on File Type Date Recorded 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
--- OUTSIDE RECORDS SUMMARY | 2023-06-07 07:59 | External Medical Summary | Summary of Care ---
Author Name Unknown Organization [place] [address] Care Team Providers Care Analysis Intern Name Role Phone Yariel Cardoza MD Primary Care Provide r Encounter Details Date Type Department Care Team Description 12/13/2020 Scan Encounter Unspecified Department <No scans attached> Allergies Active Allergy Reactions Severity Noted Date Comments Adhesive Tape 06/29/2003 Sensitive to Naproxen Hives 05/28/2015 Ivp Dye Hives 08/20/2000 Latex Other (Please comment) 01/05/2015 Contact rash Ibuprofen Rash 01/05/2015 documented as of this encounter (statuses as of 12/14/2020) Medications Medication Sig Dispensed Refills Start Date [...] cough 0 Active dicyclomine (BENTYL) 10 MG CapsuleIndications: Irritable bowel syndrome with both constipation [...] [facility] 0 06/09/2019 Active Sennosides (SENNA) 8.6 MG CAPS Take 1 Cap by mouth as needed for Constipation (1 cap up to two times daily for constipation). 0 06/12/2019 Active HYDROcodone-acetami nophen 5-325 mg per tab 5-325 MG per tablet 0 07/14/2019 Active nystatin (NYSTOP) 766398 UNIT/GM powderIndications:C andidal skin infection Apply topically [...] EVERY DAY 16 mL 1 10/21/2020 Active Clopidogrel Bisulfate 75 MG Oral Tablet (pLAVix) TAKE 1 TABLET BY MOUTH EVERY MORNING 90 Tab 1 11/22/2020 Active documented as of this encounter (statuses as of 12/14/2020) Active Problems Problem Noted Date Moderate episode [...] as of this encounter (statuses as of 12/14/2020) Resolved Problems Problem Noted Date Resolved Date [...] as of this encounter (statuses as of 12/14/2020) Immunizations Name Administration Dates Next Due Pneumococcal [...] Office Visit Internal Medicine Jade Castillo MD [address] [place] [address] [place] [address] 12/30/2020 Home Visit [facility] Corrina Layne RN [address] [facility] [place] [address] [phone] Health Maintenance Due Date Last Done Comments [...] Documents on File Type Date Recorded 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
--- OUTSIDE RECORDS SUMMARY | 2023-06-07 07:59 | External Medical Summary | Summary of Care ---
Author Name Unknown Organization [place] [address] Care Team Providers Care Hospital Cleaning Specialist Name Role Phone Leanne Cardoza MD Primary Care Provide r Reason for Visit * Reason Comments eRx-Medication Refill Encounter Details Date Type Department Care Team Description 11/20/2020 Refill Internal Medicine [address] [place] [phone] Leanne Cardoza MD [address] [place] [address] [place] [id number] Allergies Active Allergy Reactions Severity Noted Date Comments Adhesive Tape 06/29/2003 Sensitive to Naproxen Hives 05/28/2015 Ivp Dye Hives 08/20/2000 Latex Other (Please comment) 01/05/2015 Contact rash Ibuprofen Rash 01/05/2015 documented as of this encounter (statuses as of 11/22/2020) Medications Medication Sig Dispensed Refills Start Date [...] cough 0 Active dicyclomine (BENTYL) 10 MG CapsuleIndication s:Irritable bowel syndrome with both constipation [...] Take 0.4 mg by mouth daily. Per [facility] 0 06/09/2019 Active ondansetron (ZOFRAN) 4 MG Tablet Take 4 mg by mouth every 6 hours as needed for Nausea. Per [facility] 0 06/09/2019 Active Sennosides (SENNA) 8.6 MG CAPS Take 1 Cap by mouth as needed for Constipation (1 cap up to two times daily for constipation). 0 06/12/2019 Active HYDROcodone-aceta minophen 5-325 mg per tab 5-325 MG per tablet 0 07/14/2019 Active nystatin (NYSTOP) 804267 UNIT/GM powderIndications :Candidal skin infection Apply topically [...] 3 04/30/2020 Active omeprazole (PRILOSEC) 20 MG CPDRIndications:G astroesophageal reflux disease without esophagitis Take 2 Caps by mouth daily. 180 Cap 1 06/03/2020 Active hydroCHLOROthiazi de 25 MG Oral Tablet [...] EVERY MORNING 90 Tab 1 11/22/2020 Active Clopidogrel Bisulfate 75 MG Oral Tablet (pLAVix) X 21 days with baby aspirin then stop asa and continue plavix for life. 0 09/23/2020 11/22/19 21 Discontinued documented as of this encounter (statuses as of 11/22/2020) Active Problems Problem Noted Date Moderate episode [...] as of this encounter (statuses as of 11/22/2020) Resolved Problems Problem Noted Date Resolved Date [...] as of this encounter (statuses as of 11/22/2020) Immunizations Name Administration Dates Next Due Pneumococcal [...] Telephone Encounter - Leanne Cardoza MD - 11/22/2020 2:33 PM EST Signed Prescriptions: Disp Refills Clopidogrel Bisulfate 75 MG Oral Tablet (p*90 Tab 1 Sig: TAKE 1 TABLET BY MOUTH EVERY MORNING Authorizing Provider: LEANNE CARDOZA * Telephone Encounter - Una Archuleta [facility] - 11/22/2020 2:33 PM EST Pending Prescriptions: Disp Refills Clopidogrel Bisulfate 75 MG Oral Tablet (p*90 Tab 1 Sig: TAKE 1 TABLET BY MOUTH EVERY MORNING * Telephone Encounter - Una Archuleta [facility] - 11/22/2020 2:32 PM EST Pharmacists cannot authorize refills for meds listed as "historical" in chart. Please approve if appropriate. Pending Prescriptions: Disp Refills Clopidogrel Bisulfate 75 MG Oral Tablet (p*90 Tab 1 Sig: TAKE 1 TABLET BY MOUTH EVERY MORNING Last Office/Telemedicine Visit: 09/28/2020 Next Office Visit: 12/22/2020 Scheduled Provider(s): Jade Castillo MD If no future appointments scheduled, and last appointment is greater than a year ago, please schedule patient for a follow-up appointment Last date the medication was ordered: historical Pharmacy: [id number] [id number] [facility] Is this request for a controlled substance?No Urine Drug Screen:No results found for this or any previous visit. Patient Phone Numbers Labs: Lab Results Component Value Date/Time CREAT 0.87 09/22/2020 CREAT 0.9 05/06/2020 10:15 AM POTASSIUM 5.2 (A) 09/22/2020 POTASSIUM 4.1 05/06/2020 10:15 AM TSH 0.69 04/17/2017 10:53 AM LDLCALC 35 09/20/2020 LDLCALC 51 07/28/2018 02:30 PM LDLDIRECT 70 08/18/2019 11:10 AM ALT 22 05/06/2020 10:15 AM HGBA1C 5.7 03/19/2017 08:05 AM documented in this encounter Plan of Treatment Upcoming Encounters Date Type Specialty Care Team Description 12/02/2020 Home Visit [facility] Corrina Layne RN [address] [facility] [place] [address] [phone] 12/22/2020 Office Visit Internal Medicine Jade Castillo MD [address] [place] [address] [place] [address] [phone] Health Maintenance Due Date Last Done Comments [...] Documents on File Type Date Recorded 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
--- OUTSIDE RECORDS SUMMARY | 2023-06-07 07:59 | External Medical Summary | Summary of Care ---
Author Name Unknown Organization [place] [address] Care Team Providers Care Biotechnician Name Role Phone Yariel Cardoza MD Primary Care Provide r Encounter Details Date Type Department Care Team Description 12/02/2020 Home Visit [facility] [address] [place] [address] Corrina Layne RN [address] [facility] [place] [address] [phone] Allergies Active Allergy Reactions Severity Noted Date Comments Adhesive Tape 06/29/2003 Sensitive to Naproxen Hives 05/28/2015 Ivp Dye Hives 08/20/2000 Latex Other (Please comment) 01/05/2015 Contact rash Ibuprofen Rash 01/05/2015 documented as of this encounter (statuses as of 12/08/2020) Medications Medication Sig Dispensed Refills Start Date [...] 0.4 mg by mouth daily. Per [facility] 0 06/09/2019 Active ondansetron (ZOFRAN) 4 MG Tablet Take 4 mg by mouth every 6 hours as needed for Nausea. Per [facility] 0 06/09/2019 Active Sennosides (SENNA) 8.6 MG CAPS Take 1 Cap by mouth as needed for Constipation (1 cap up to two times daily for constipation). 0 06/12/2019 Active HYDROcodone-acetami nophen 5-325 mg per tab 5-325 MG per tablet 0 07/14/2019 Active nystatin (NYSTOP) 792399 UNIT/GM powderIndications:C andidal skin infection Apply topically [...] as of this encounter (statuses as of 12/08/2020) Active Problems Problem Noted Date Moderate episode [...] as of this encounter (statuses as of 12/08/2020) Resolved Problems Problem Noted Date Resolved Date [...] as of this encounter (statuses as of 12/08/2020) Immunizations Name Administration Dates Next Due Pneumococcal [...] Reading Time Taken Comments Blood Pressure 120/70 12/02/2020 11:25 AM EST Pulse 76 12/02/2020 11:25 AM EST Temperature 36.6 C (97.8 F) 12/02/2020 11:[address] Respiratory Rate 18 12/02/2020 11:25 AM EST Oxygen Saturation 94% 12/02/2020 11:25 AM EST RA Inhaled Oxygen Concentration - - Weight - - Height - - Body Mass Index - - documented in this encounter Progress Notes * Corrina Layne RN - 12/02/2020 11:25 AM EST [facility] Monthly Visit Date: 12/02/2020 Time: 11:25 AM Name: Jayla Hayes : 1945 Current Concerns: Patient being seen for routine home visit today related to COPD, IBS, TIA. COPD-breathing at baseline. No increased cough or sob. Following regularly with pul[place]ology at [facility]. IBS- abd much less bloated of late. Feels that IBS symptoms are better controlled. TIA- no new neuro symptoms. Will reschedule for 1 month return. Physical Exam: BP 120/70 (BP Site: Left Arm, BP Position: Sitting, BP Cuff Size: Regular) | Pulse 76 | Temp 36.6 C (97.8 F) (Tympanic) | Resp 18 | SpO2 94% Comment: RA Pain 0 Physical Exam Cardiovascular: Rate and [...] for chest pain and leg swelling. Gastrointestinal: Negative. Genitourinary: Negative for decreased urine volume, difficulty urinating, dysuria and hematuria. Neurological: Negative. Hematological: Negative. Psychiatric/Behavioral: Negative. All other systems reviewed and are negative. Medication Reconciliation: (See medication list) Does patient take medications as ordered: Yes Patient Well Being: PHQ2/9: No questionnaires available. Mood stable. Denies falls. Advanced Care Planning: Living Will. Patient's Goals of Care: 1. To stay out of hospital 2. To spend time with family 3. Get gi sx's under better control- IBS- improving Reinforcement/Education: COPD: Pt instructed to: -Call with [...] regimen Patient's 'Red Flags': 1. Increased sob 2. Increased cough/ wheezing 3. fever Patient Needs to Remember: Call [facility] at with any new or worsening health concerns or problems, red flag symptoms. Referrals Needed: n/a Follow Up: Patient encouraged to call the intake phone number for all urgent but not emergent issues. Is the patient new to [facility] within the last 30 days? No, Assess appropriateness for upcoming telehealth visits. Cancel telehealth visits & schedule home visit with [facility] [place])as indicated. Provider is in agreement with Plan of Care: Yes Scheduled to follow up with patient in 1 month. 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
--- OUTSIDE RECORDS SUMMARY | 2023-06-07 07:59 | External Medical Summary | Summary of Care ---
Author Name Unknown Organization [place] [address] Care Team Providers Care Power Engineer Name Role Phone Yariel Cardoza MD Primary Care Provide r Reason for Visit * Reason Comments Re-Check Encounter Details Date Type Department Care Team Description 12/22/2020 Office Visit Internal Medicine [address] [place] [address] Jade Castillo MD [address] [place] [address] [place] [address] Stenosis of right vertebral artery*; Gum lesion; TIA (transient ischemic attack); Chronic obstructive pulmonary disease, unspecified COPD type ([facility]); Moderate episode of recurrent major depressive disorder ([facility]); Peripheral vascular disease ([facility]); Severe obesity with body mass index (BMI) of 35.0 to 39.9 with serious comorbidity ([facility]); Essential (primary) hypertension; Multiple thyroid nodules; Irritable bowel syndrome with both constipation and diarrhea; Gastro-esophageal reflux disease without esophagitis; Hyperlipidemia, unspecified hyperlipidemia type Allergies Active Allergy Reactions Severity Noted Date Comments Adhesive Tape 06/29/2003 Sensitive to Naproxen Hives 05/28/2015 Ivp Dye Hives 08/20/2000 Latex Other (Please comment) 01/05/2015 Contact rash Ibuprofen Rash 01/05/2015 documented as of this encounter (statuses as of 12/22/2020) Medications Medication Sig Dispensed Refills Start Date [...] Take 0.4 mg by mouth daily. Per [facility] 0 06/09/2019 Active ondansetron (ZOFRAN) 4 MG Tablet Take 4 mg by mouth every 6 hours as needed for Nausea. Per [facility] 0 06/09/2019 Active nystatin (NYSTOP) 083141 UNIT/GM powderIndications: Candidal skin infection Apply topically [...] mouth daily. 30 Tab 2 12/22/2020 Active dicyclomine (BENTYL) 10 MG CapsuleIndications :Irritable bowel syndrome with both constipation and diarrhea Take 1 Cap by mouth 4 times a day as needed (abdominal pain, cramping). for abdominal pain 120 Cap 5 03/06/2019 1 Discontinue d(Refill) meclizine (ANTIVERT) 25 MG Tablet TAKE 1 TABLET BY MOUTH ONCE EVERY 6 HOURS NEEDED FOR DIZZINESS/VERTIGO 10 Tab 0 06/05/2019 1 Discontinue d(Refill) Sennosides (SENNA) 8.6 MG CAPS Take 1 Cap by mouth as needed for Constipation (1 cap up to two times daily for constipation). 0 06/12/2019 1 Discontinue d(Patient preference/ discontinua tion) HYDROcodone-acetam inophen 5-325 mg per tab 5-325 MG per tablet 0 07/14/2019 1 Discontinue d(Patient preference/ discontinua tion) Aspirin 81 MG Oral Tablet Chewable Take 1 Tab by mouth daily. with food. 0 12/19/2020 1 Discontinue d(Patient preference/ discontinua tion) documented as of this encounter (statuses as of 12/22/2020) Active Problems Problem Noted Date Schatzki's ring [...] as of this encounter (statuses as of 12/22/2020) Resolved Problems Problem Noted Date Resolved Date [...] as of this encounter (statuses as of 12/22/2020) Immunizations Name Administration Dates Next Due COVID-19 mRNA, LNP-s, No Pre serve, 2-Dose Series ([employer]) 12/16/2020,11/25/2020 Pneumococcal Conjugate Vacc, 13 Valent (Prevnar) [...] Sign Reading Time Taken Comments Blood Pressure 112/78 12/22/2020 3:36 PM EDT Pulse 70 12/22/2020 3:36 PM EDT Temperature 36.3 C (97.3 F) 12/22/2020 3:36 PM ED T Respiratory Rate 16 12/22/2020 3:36 PM EDT Oxygen Saturation 91% 12/22/2020 3:36 PM EDT Inhaled Oxygen Concentration - - Weight 91.3 kg (201 lb 3.2 oz) 12/22/2020 3:36 P M EDT Height 154.9 cm (5' 1") 12/22/2020 3:36 PM EDT Body Mass Index 38.02 12/22/2020 3:36 PM EDT documented in this encounter Progress Notes * Jade Castillo MD - 12/22/2020 3:57 PM EDT Subjective: HPI: Jayla Hayes is a 75 year old female with hx of COPD, HTN, HLD, thyroid nodules(benign FNA), urinary incontinence, depression, DDD, constipation, b/l breast reduction (2004), depression, R vertebral aa stenosis, Schatzki ring of the esophagusseen for Pt is currently seeing a oral surgeon (Nba Mayen) for soreness and nodule near the lower gum - the surgeon is planning on getting a biopsy if the soreness do not improve with discontinuing theuse of dentures - per pt oral surgeon would like to know how long to discontinue the plavix before the biopsy - recently pt's plavix was discontinued and pt was started on aspirin ------ bc it was thought pt was not on aspirin when she had the dizziness/ ?TIAin 09/2020 ------ however on clarification pt was on aspirin 81mg during the episode in 09/2020 Neuro recommendation at that time: no acute stroke, however due to vertebral aa stenosis, dual antiplatelet for 3 weeks then plavix lifetime - pt is currently on aspirin 81mg daily and statin - pt was tolerating plavix well - no episodes of dizziness or neurological symptoms - denied any hx of CVA or GA Currently following up with [facility] pulm Eating well Denied any Cp, SOB Having regular BM Patient Active Problem List Diagnosis Code Slow [...] depressive disorder (HCC) F33.1 Schatzki's ring K22.2 Current Outpatient Medications Medication Sig Dispense Refill Atenolol 25 MG Oral Tablet (Tenormin) TAKE 1 TABLET BY MOUTH EVERY DAY 90 Tab 3 Fluticasone Propionate 50 MCG/ACT Nasal Suspension (Flonase) SPRAY 2 SPRAYS INTO EACH NOSTRIL EVERY DAY 16 mL 1 Atorvastatin Calcium 40 MG Oral Tablet (LIPITOR) Amitriptyline HCl 25 MG Oral Tablet (ELAVIL) TAKE 1 TABLET BY MOUTH EVERYDAY AT BEDTIME 90 Tab 3 Sertraline HCl 50 MG Oral Tablet (ZOLOFT) TAKE 1 TABLET BY MOUTH EVERY DAY 90 Tab 1 Potassium Chloride ER 10 MEQ Oral Tablet Extended Release TAKE 1 TABLET BY MOUTH EVERY DAY 90 Tab 2 hydroCHLOROthiazide 25 MG Oral Tablet (HYDRODIURIL) TAKE 1 TABLET BY MOUTH EVERY DAY 90 Tab 2 omeprazole (PRILOSEC) 20 MG CPDR Take 2 Caps by mouth daily. 180 Cap 1 amLODIPine (NORVASC) 2.5 MG Tablet TAKE 1 TABLET BY MOUTH EVERY DAY 90 Tab 3 albuterol-ipratropium (DUONEB) 2.5-0.5 MG/3ML nebulizer solution INHALE 3 MLS VIA NEBULIZER EVERY 4 HOURS NEEDED FOR COUGH, SHORTNESS OF BREATH OR WHEEZING. 360 mL 1 furosemide (LASIX) 20 MG Tablet TAKE 1 TABLET BY MOUTH DAILY NEEDED (SWELLING). FOR FLUID ACCUMULATION OR WEIGHT GAIN 30 Tab 5 Probiotic Product ([employer] ADV PROBIOTIC GUMMIES) CHEW Take 2 Gum Dosing Unit by mouth. zoster vac recomb adjuvanted (SHINGRIX) 50 MCG/0.5ML injection Inject 0.5 mL into a large muscle now and repeat dose in 60 to 180 days 1 Each 1 nystatin (NYSTOP) 317852 UNIT/GM powder Apply topically to affected area 3 times a day. Apply to the affected area 45 g 1 Cholecalciferol 1000 units Capsule Take 2,000 Units by mouth daily. ondansetron (ZOFRAN) 4 MG Tablet Take 4 mg by mouth every 6 hours as needed for Nausea. [facility] tamsulosin (FLOMAX) 0.4 MG Capsule Take 0.4 mg by mouth daily. [facility] Dextromethorphan-guaiFENesin (CORICIDIN HBP CONGESTION/COUGH) 10-200 [...] L/min(Oxygen) as directed continuous. 1 Each 0 Clopidogrel Bisulfate 75 MG Oral Tablet (pLAVix) Take 1 Tab by mouth daily. 30 Tab 2 Dicyclomine HCl 10 MG Oral Capsule Take [...] syndrome 07/20/2015 COPD (chronic obstructive pulmonary disease) (HCC) COPD, severe (HCC) 12/21/2015 COPD, severity to be determined (HCC) 07/20/2015 Dyslipidemia, goal LDL below 100 10/16/2015 Dyslipidemia, goal LDL below 130 08/22/2015 FAM HX-CARDIOVAS DIS NEC 01/28/2002 Generalized osteoarthritis 08/22/2015 GERD (gastroesophageal reflux disease) 07/20/2015 Hypertrophy of breast 08/31/2003 IBS (irritable bowel syndrome) 07/20/2015 Kidney disease, chronic, stage III (GFR 30-59 ml/min) 10/16/2015 Kidney stone Lumbar degenerative disc disease [...] performed by Todd Kunz, DO at OR [facility] BIOPSY OF BREAST, OPEN 1971 benign, right, removed nipple for blocked milk glands BIOPSY OF BREAST, OPEN 1976 left, benign BREAST SURGERY PROCEDURE NEC bilateral Breast Reduction 09/20/03 BUNION CORRECTED WITH DOUBLE OSTEOTOMY 1991 right foot COLONOSCOPY, DIAGNOSTIC (RECTUM) 03/08/2015 adenomatous polyps, repeat 3 yrs/[facility] COLONOSCOPY, DIAGNOSTIC (RECTUM) 03/26/2018 adenomatous & serrated adenomatous polyps, repeat 3 yrs/[facility] EGD, FLEXIBLE, DIAGNOSTIC 01/21/2015 sm HH/[facility] EGD, FLEXIBLE, DIAGNOSTIC 07/22/2018 mild gastritis, Schatzki ring, duodenal polyp/[facility] ESOPHAGOSCOPY RIGID TRANSORAL HYPOPHARYNX [...] TOTAL ABD HYSTERECTOMY W/WO REMOVAL OF TUBE(S) 1985 both ovaries intact, fibroids Review of patient's allergies indicates: Allergen Reactions Adhesive Tape Sensitive to Aleve [Naproxen] Hives Ivp Dye Hives Latex Other (Please comment) Contact rash Motrin [Ibuprofen] Rash Family History Problem Relation Age of Onset Heart Disorder Father [place] age 55 Heart Disorder Mother CAD, 84 in '02 Arthritis Mother in fingers Diabetes Brother half brother Stroke Aunt (Unspecified) 80's Stroke Uncle (Unspecified) 60's Social History Tobacco Use Smoking status: Former Smoker Packs/day: 1.75 Years: 38.00 Pack years: 66.50 Types: Cigarettes Quit date: 10/07/1995 Years since quittin.2 Smokeless tobacco: Never Used Tobacco comment: quit in 1995 Substance Use Topics Alcohol use: No Vaping/E-Cigarette Use Vaping/E-Cigarette Substances Vaping/E-Cigarette Devices RECENT LABS: Results for orders placed or performed in visit on 09/26/20 COVID-19 Result Value Ref Range [id number] LAB NEGATIVE NEGATIVE BASIC METAB PANEL, BMP Result Value Ref Range CREATININE-OUTSIDE LAB 0.87 0.6 - 1.2 MG/DL EGFR-OUTSIDE LAB 64.3 ML/MIN POTASSIUM-OUTSIDE LAB 5.2 (A) 3.5 - 5.1 MMOL/L GLUCOSE-OUTSIDE LAB 120 (A) 70 - 99 MG/DL CHEMISTRY-OUTSIDE Result Value Ref Range CREATININE-OUTSIDE LAB 0.79 0.6 - 1.2 MG/DL EGFR-OUTSIDE LAB 72.2 ML/MIN POTASSIUM-OUTSIDE LAB 4.2 3.5 - 5.1 MMOL/L GLUCOSE-OUTSIDE LAB 89 70 - 99 MG/DL HOURS FASTING TRIGLYCERIDES-OUTSIDE LAB 68 0 - 150 MG/DL CHOLESTEROL-OUTSIDE LAB 87 0 - 200 MG/DL HDL-OUTSIDE LAB 38 (A) 40 - 60 MG/DL CHOL/HDL RATIO-OUTSIDE LAB 2 LDL (CALCULATED)-OUTSIDE LAB 35 MG/DL LDL (DIRECT MEASURE)-OUTSIDE LAB HEMOGLOBIN, [id number] LAB PHOSPHORUS-OUTSIDE LAB PTH-OUTSIDE LAB MICROALBUMIN RATIO-OUTSIDE LAB PROTEIN, UA-OUTSIDE LAB HEMOGLOBIN-OUTSIDE LAB CHEMISTRY COMMENT-OUTSIDE LAB CHEMISTRY-OUTSIDE Result Value Ref Range CREATININE-OUTSIDE LAB EGFR-OUTSIDE LAB POTASSIUM-OUTSIDE LAB GLUCOSE-OUTSIDE LAB HOURS FASTING TRIGLYCERIDES-OUTSIDE LAB CHOLESTEROL-OUTSIDE LAB HDL-OUTSIDE LAB CHOL/HDL RATIO-OUTSIDE LAB LDL (CALCULATED)-OUTSIDE LAB LDL (DIRECT MEASURE)-OUTSIDE LAB HEMOGLOBIN, [id number] LAB PHOSPHORUS-OUTSIDE LAB PTH-OUTSIDE LAB MICROALBUMIN RATIO-OUTSIDE LAB PROTEIN, UA-OUTSIDE LAB TRACE (A) NEGATIVE HEMOGLOBIN-OUTSIDE LAB 14.1 12.0 - 16.0 G/DL CHEMISTRY COMMENT-OUTSIDE LAB Review of Systems All other systems reviewed and are negative. OBJECTIVE: BP 112/78 | Pulse 70 | Temp 36.3 C (97.3 F) (Tympanic) | Resp 16 | Ht (!) 1.549 m (5' 1") | Wt 91.3 kg (201 lb 3.2 oz) | SpO2 91% | BMI 38.02 kg/m | BSA 1.98 m PHYSICAL EXAM: Vitals are reviewed General:. NAD, well developed HEENT:.small pink colour nodule (1mm) near the anterior lower gum, no skin erythema or ulcer, Normal Conjunctiva, EOMI Cardiac:. Normal S1, S2, no murmur Lungs:. CTA, no wheezing or crackles MSK:b/l trace pitting edema LE, Normal gait Psych:. AAOx3, normal affect ASSESSMENT/PLAN: Stenosis of right vertebral artery (Primary)/TIA (transient ischemic attack) - verified with the pt; she was on aspirin 81mg when she dx with possible TIA ---- therefore will switch the pt back to plavix instead of aspirin. She did complete 21 days of DAPT treatment - Clopidogrel Bisulfate 75 MG Oral Tablet (pLAVix); Take 1 Tab by mouth daily. Gum lesion - due to pt's hx of vertebral aa stenosis and possible TIA I do not think it is necessary to stop plavix for possible oral gum biopsy - [employer] and [employer] recommend no need for antiplatelettherapy interruption for oral procedures Chronic obstructive pulmonary disease (HCC) - CBC WITH WBC DIFFERENTIAL; Future; Expected date: 12/23/2020 Moderate episode of recurrent major depressive disorder (HCC) - doing well on current meds Peripheral vascular disease (HCC) - stable on plavix and Statin Severe obesity with body mass index (BMI) of 35.0 to 39.9 with serious comorbidity (HCC) - pt is planning on modifying her diet Essential (primary) hypertension - BASIC METABOLIC PANEL; Future; Expected date: 12/23/2020 - HEMOGLOBIN A1C; Future; Expected date: 12/23/2020 Multiple thyroid nodules - TSH WITH FREE T4 IF INDICATED; Future; Expected date: 12/23/2020 Irritable bowel syndrome with both constipation and diarrhea - Dicyclomine HCl 10 MG Oral Capsule; Take 1 Cap by mouth 4 times a day as needed (abdominal pain, cramping). for abdominal pain Gastro-esophageal reflux disease without esophagitis - stable Hyperlipidemia, unspecified - LIPID PANEL WITHOUT DIRECT LDL; Future; Expected date: 12/23/2020 Other orders - Meclizine HCl 25 MG Oral Tablet (Antivert); TAKE 1 TABLET BY MOUTH ONCE EVERY 6 HOURS NEEDED FOR DIZZINESS/VERTIGO Follow Up: Return in about 3 months (around 03/24/2021). I spent a total of 50 minutes on the date of service in preparation, delivery, and documentation ofthe care provided to Jayla Hayes excluding any time spent in the performance of separately billed services. Jade Castillo MD Family medicine, [place] [address] documented in this encounter Nursing Notes * Courtney Montiel LPN - 12/22/2020 3:31 PM EDT Pt here for 6 month check up Needs meds refilled - pended Pt has questions regarding Plavix - states was told she needed to be on this for the rest of her life, then it was just changed to baby aspirin Pt has questions regarding a medication she saw advertised on TV for loss of hair Wondering if this would be safe to use Pt states 2 days after getting her 2nd COVID shot (12/16/2020) she noticed a rash on the top of herlegs States was itchy, getting better documented in this encounter Plan of Treatment Upcoming Encounters Date Type Specialty Care Team Description 12/30/2020 Home Visit [facility] Corrina Layne RN [address] [place] [address] [phone] Scheduled Orders Name Type Priority Associated Diagnoses Orde r Schedule CBC WITH WBC DIFFERENTIAL Lab Routine Chronic obstructive pulmonary disease, unspecified COPD type (HCC) Expected: 12/23/2020 (Approximate), Expires: 04/23/2021 BASIC METABOLIC PANEL Lab Routine Essential (primary) hypertension Expected: 12/23/2020 (Approximate), Expires: 04/23/2021 LIPID PANEL WITHOUT DIRECT LDL Lab Routine Hyperlipidemia, unspecified hyperlipidemia type Expected: 12/23/2020 (Approximate), Expires: 04/23/2021 HEMOGLOBIN A1C Lab Routine Essential (primary) hypertension Expected: 12/23/2020 (Approximate), Expires: 04/23/2021 TSH WITH FREE T4 IF INDICATED Lab Routine Multiple thyroid nodules Expected: 12/23/2020 (Approximate), Expires: 04/23/2021 Health Maintenance Due Date Last Done Comments [...] Visit Diagnoses Diagnosis Stenosis of right vertebral artery- Primary Gum lesion Unspecified gingival and periodontal disease TIA (transient ischemic attack) Unspecified transient cerebral ischemia Chronic obstructive pulmonary disease, unspecified COPD type (HCC) Moderate episode of recurrent major depressive disorder (HCC) Peripheral vascular disease (HCC) Peripheral vascular disease, unspecified Severe obesity with body mass index (BMI) of 35.0 to 39.9 with serious comorbidity (HCC) Essential (primary) hypertension Unspecified essential hypertension Multiple thyroid nodules Nontoxic multinodular goiter Irritable bowel syndrome with both constipation and diarrhea Gastro-esophageal reflux disease without esophagitis Esophageal reflux Hyperlipidemia, unspecified hyperlipidemia type documented in this encounter Advance Directives Documents on File Type Date Recorded Patient Facility Maintenance Worker Expl 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
--- OUTSIDE RECORDS SUMMARY | 2023-06-07 07:59 | External Medical Summary | Summary of Care ---
Author Name Unknown Organization [place] [address] Care Team Providers Care Convex Grinder Name Role Phone Yariel Cardoza MD Primary Care Provide r Encounter Details Date Type Department Care Team Description 12/16/2020 Orders Only Internal Medicine [address] [place] [address] Yariel Cardoza MD [address] [place] [address] [place] [address] Allergies Active Allergy Reactions Severity Noted Date Comments Adhesive Tape 06/29/2003 Sensitive to Naproxen Hives 05/28/2015 Ivp Dye Hives 08/20/2000 Latex Other (Please comment) 01/05/2015 Contact rash Ibuprofen Rash 01/05/2015 documented as of this encounter (statuses as of 12/16/2020) Medications Medication Sig Dispensed Refills Start Date [...] Take 0.4 mg by mouth daily. Per [facility] 0 06/09/2019 Active ondansetron (ZOFRAN) 4 MG Tablet Take 4 mg by mouth every 6 hours as needed for Nausea. Per [facility] 0 06/09/2019 Active Sennosides (SENNA) 8.6 MG CAPS Take 1 Cap by mouth as needed for Constipation (1 cap up to two times daily for constipation). 0 06/12/2019 Active HYDROcodone-acetami nophen 5-325 mg per tab 5-325 MG per tablet 0 07/14/2019 Active nystatin (NYSTOP) 157880 UNIT/GM powderIndications:C andidal skin infection Apply topically [...] as of this encounter (statuses as of 12/16/2020) Active Problems Problem Noted Date Moderate episode [...] as of this encounter (statuses as of 12/16/2020) Resolved Problems Problem Noted Date Resolved Date [...] as of this encounter (statuses as of 12/16/2020) Immunizations Name Administration Dates Next Due Pneumococcal [...] Office Visit Internal Medicine Jade Castillo MD [address] [place] [address] [place] [address] 12/30/2020 Home Visit [facility] Corrina Layne RN [address] [facility] [place] [address] Health Maintenance Due Date Last Done Comments [...] Associated Diagnosis Comments MAMMOGRAM SCREENING BILATERAL Routine 12/15/2020 documented in this encounter Results * MAMMOGRAM SCREENING BILATERAL (12/15/2020) Specimen Narrative Performed At OUTSIDE LAB (SEE SCANNED REPORT) documented in this encounter Advance Directives Documents on File Type Date Recorded Patient It Technical Support Specialist Expl 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
--- OUTSIDE RECORDS SUMMARY | 2023-06-07 07:59 | External Medical Summary | Summary of Care ---
Author Name Unknown Organization [place] [address] Care Team Providers Care Saddle Tree Stitcher Name Role Phone Yariel Cardoza MD Primary Care Provide r Reason for Visit * Reason Onset Date Comments Advice 12/19/2020 Plavix Encounter Details Date Type Department Care Team Description 12/19/2020 Telephone Internal Medicine [address] [place] [id number] Yariel Cardoza MD [address] [place] [address] [place] [phone] Advice (Plavix) Allergies Active Allergy Reactions Severity [...] Take 0.4 mg by mouth daily. Per [facility] ER 0 06/09/2019 Active ondansetron (ZOFRAN) 4 MG Tablet Take 4 mg by mouth every 6 hours as needed for Nausea. Per [facility] ER 0 06/09/2019 Active Sennosides (SENNA) 8.6 MG CAPS Take 1 Cap by mouth as needed for Constipation (1 cap up to two times daily for constipation). 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 Will send to neurology to clarify. * [...] thePlavix for one week? Please advise patient [facility] [phone] documented in this encounter Plan of Treatment Upcoming Encounters Date Type Specialty Care Team Description 12/22/2020 Office Visit Internal Medicine Jade Castillo MD [address] [place] [address] [place] [address] 12/30/2020 Home Visit [facility] Corrina Layne RN [address] [facility] [place] [address] Health Maintenance Due Date [...] Documents on File Type Date Recorded Patient College Teacher Expl 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
--- OUTSIDE RECORDS SUMMARY | 2023-06-07 07:59 | External Medical Summary | Summary of Care ---
Author Name Unknown Organization [place] [address] Care Team Providers Care Inclusion Special Education Teacher Name Role Phone Yariel Cardoza MD Primary Care Provide r Reason for Visit * Reason Onset Date Comments Advice 12/19/2020 Plavix Encounter Details Date Type Department Care Team Description 12/19/2020 Telephone Internal Medicine [address] [place] [phone] Yariel Cardoza MD [address] [place] [address] [place] [phone] Advice (Plavix) Allergies Active Allergy Reactions Severity [...] per tablet 0 07/14/2019 Active nystatin (NYSTOP) 193777 UNIT/GM powderIndications:C andidal skin infection Apply topically [...] end of September) 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 Will send to neurology to clarify. * [...] thePlavix for one week? Please advise patient [facility] [phone] documented in this encounter Plan of Treatment Upcoming Encounters Date Type Specialty Care Team Description 12/22/2020 Office Visit Internal Medicine Jade Castillo MD [address] [place] [address] [place] [address] 12/30/2020 Home Visit [facility] Corrina Layne RN [address] [facility] [place] [address] Health Maintenance Due Date [...] Documents on File Type Date Recorded Patient Burlap Man Expl 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
--- OUTSIDE RECORDS SUMMARY | 2023-06-07 07:59 | External Medical Summary | Summary of Care ---
Author Name Unknown Organization [place] [address] Care Team Providers Care Coloring Room Worker Name Role Phone Yariel Cardoza MD Primary Care Provide r Reason for Visit * Reason Comments eRx-Medication Refill Encounter Details Date Type Department Care Team Description 11/13/2020 Refill Internal Medicine [address] [place] [address] Jade Castillo MD [address] [place] [address] [place] [id number] COVID-19 virus infection Allergies Active Allergy Reactions Severity Noted Date Comments Adhesive Tape 06/29/2003 Sensitive to Naproxen Hives 05/28/2015 Ivp Dye Hives 08/20/2000 Latex Other (Please comment) 01/05/2015 Contact rash Ibuprofen Rash 01/05/2015 documented as of this encounter (statuses as of 11/15/2020) Medications Medication Sig Dispensed Refills Start Date [...] Take 0.4 mg by mouth daily. Per [facility] ER 0 06/09/2019 Active ondansetron (ZOFRAN) 4 MG Tablet Take 4 mg by mouth every 6 hours as needed for Nausea. Per [facility] ER 0 06/09/2019 Active Sennosides (SENNA) 8.6 MG CAPS Take 1 Cap by mouth as needed for Constipation (1 cap up to two times daily for constipation). 0 06/12/2019 Active HYDROcodone-acetami nophen 5-325 mg per tab 5-325 MG per tablet 0 07/14/2019 Active nystatin (NYSTOP) 501821 UNIT/GM powderIndications:C andidal skin infection Apply topically [...] MG Oral Tablet (LIPITOR) 0 09/23/2020 Active Clopidogrel Bisulfate 75 MG Oral Tablet (pLAVix) X 21 days with baby aspirin then stop asa and continue plavix for life. 0 09/23/2020 Active Atenolol 25 MG Oral Tablet (Tenormin) TAKE 1 TABLET BY MOUTH EVERY DAY 90 Tab 3 10/21/2020 Active Fluticasone Propionate 50 MCG/ACT Nasal Suspension (Flonase)Indication s:COVID-19 virus infection SPRAY 2 SPRAYS INTO EACH NOSTRIL EVERY DAY 16 mL 1 10/21/2020 Active documented as of this encounter (statuses as of 11/15/2020) Active Problems Problem Noted Date Moderate episode [...] as of this encounter (statuses as of 11/15/2020) Resolved Problems Problem Noted Date Resolved Date [...] as of this encounter (statuses as of 11/15/2020) Immunizations Name Administration Dates Next Due Pneumococcal [...] encounter Miscellaneous Notes * Telephone Encounter - Antonio Lyles [facility] - 11/15/2020 6:20 AM EST Refused Prescriptions: Disp Refills Fluticasone Propionate 50 MCG/ACT Nasal Alfred*16 mL 1 Sig: SPRAY 2SPRAYS INTO EACH NOSTRIL EVERY DAYRefused By: ANTONIO LYLES LReason for Refusal: Too soonReason forRefusal Comment: 2 months sent 10/21/20 documented in this encounter Plan of Treatment Upcoming Encounters Date Type Specialty Care Team Description 12/02/2020 Home Visit [facility] Corrina Layne, RN [address] [facility] [place] [address] [phone] 12/22/2020 Office Visit Internal Medicine Jade Castillo MD [address] [place] [address] [place] [address] [phone] Health Maintenance Due Date Last Done Comments [...] as of this encounter Visit Diagnoses Diagnosis COVID-19 virus infection documented in this encounter Advance Directives Documents on File Type Date Recorded Patient Vocational Rehabilitation Teacher Expl 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
--- OUTSIDE RECORDS SUMMARY | 2023-06-07 07:59 | External Medical Summary | Summary of Care ---
Author Name Unknown Organization [place] [address] Care Team Providers Care Parking Garage Manager Name Role Phone Yariel Cardoza MD Primary Care Provide r Reason for Visit * Reason Onset Date Comments Advice 12/15/2020 Encounter Details Date Type Department Care Team Description 12/15/2020 Telephone Internal Medicine [address] [place] [id number] Yariel Cardoza MD [address] [place] [address] [place] [id number] Advice Allergies Active Allergy Reactions Severity Noted Date Comments Adhesive Tape 06/29/2003 Sensitive to Naproxen Hives 05/28/2015 Ivp Dye Hives 08/20/2000 Latex Other (Please comment) 01/05/2015 Contact rash Ibuprofen Rash 01/05/2015 documented as of this encounter (statuses as of 12/15/2020) Medications Medication Sig Dispensed Refills Start Date [...] Take 0.4 mg by mouth daily. Per [facility] ER 0 06/09/2019 Active ondansetron (ZOFRAN) 4 MG Tablet Take 4 mg by mouth every 6 hours as needed for Nausea. Per [facility] 0 06/09/2019 Active Sennosides (SENNA) 8.6 MG CAPS Take 1 Cap by mouth as needed for Constipation (1 cap up to two times daily for constipation). 0 06/12/2019 Active HYDROcodone-acetami nophen 5-325 mg per tab 5-325 MG per tablet 0 07/14/2019 Active nystatin (NYSTOP) 079454 UNIT/GM powderIndications:C andidal skin infection Apply topically [...] as of this encounter (statuses as of 12/15/2020) Active Problems Problem Noted Date Moderate episode [...] as of this encounter (statuses as of 12/15/2020) Resolved Problems Problem Noted Date Resolved Date [...] as of this encounter (statuses as of 12/15/2020) Immunizations Name Administration Dates Next Due Pneumococcal [...] Telephone Encounter - Irma Finnegan LPN - 12/15/2020 12:30 PM EST Patient aware and verbalized understanding, will comply * Telephone Encounter - Courtney Montiel LPN - 12/15/2020 10:42 AM EST Called patient, no answer, left message to return our call. * Telephone Encounter - Yariel Cardoza MD - 12/15/2020 10:15 AM EST The provider during the biopsy should give her direction on her Plavix * Telephone Encounter - Jen Guevara OSA - 12/15/2020 9:13 AM EST Pt said she may be getting a biopsy on 01-03-21 and is inquiring what date she needs to stop her Clopidogrel 75mg prior to 01-03-21 Pt said at her appt the provider will make the decision if he needs to do the biopsy on pt appt date of 01-03-21 documented in this encounter Plan of Treatment Upcoming Encounters Date Type Specialty Care Team Description 12/22/2020 Office Visit Internal Medicine Jade Castillo MD [address] [place] [address] [place] [phone] 12/30/2020 [facility] Visit [facility] Corrina Layne RN [address] [place] [address] [place] [address] [phone] Health Maintenance Due Date Last Done Comments [...] Documents on File Type Date Recorded Patient Blacktop Spreader Expl 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
--- OUTSIDE RECORDS SUMMARY | 2023-06-07 08:00 | External Medical Summary | Summary of Care ---
Author Name Unknown Organization [place] [address] Care Team Providers Care Organic Gardening Teacher Name Role Phone Yariel Cardoza MD Primary Care Provide r Reason for Visit * Reason Comments [facility]: Maintenance Encounter Details Date Type Department Care Team Description 10/20/2020 [facility] Visit [facility] [address] [place] [address] Corrina Layne RN [address] [facility] [place] [address] [phone] Allergies Active Allergy Reactions Severity Noted Date Comments Adhesive Tape 06/29/2003 Sensitive to Naproxen Hives 05/28/2015 Ivp Dye Hives 08/20/2000 Latex Other (Please comment) 01/05/2015 Contact rash Ibuprofen Rash 01/05/2015 documented as of this encounter (statuses as of 10/23/2020) Medications Medication Sig Dispensed Refills Start Date End Date Status oxygen GASIndications:Hypo bryan Use 2 L/min(Oxygen) as directed continuous. 1 Each 0 02/18/2017 Active budesonide (PULMICORT) 0.5 MG/2ML nebulizer solution INHALE ONE UNIT DOSE VIAL VIA NEBULIZER TWO TIMES A DAY. 3 08/03/2017 Active Aspirin 81 MG Tablet Take 81 mg by mouth daily. X 21 days along with plavix then stop 0 Active VENTOLIN HFA 108 (90 Base) MCG/ACT [...] 0.4 mg by mouth daily. Per [facility] 0 06/09/2019 Active ondansetron (ZOFRAN) 4 MG Tablet Take 4 mg by mouth every 6 hours as needed for Nausea. Per [facility] 0 06/09/2019 Active Sennosides (SENNA) 8.6 MG CAPS Take 1 Cap by mouth as needed for Constipation (1 cap up to two times daily for constipation). 0 06/12/2019 Active HYDROcodone-acetami nophen 5-325 mg per tab 5-325 MG per tablet 0 07/14/2019 Active nystatin (NYSTOP) 894435 UNIT/GM powderIndications:C andidal skin infection Apply topically [...] continue plavix for life. 0 09/23/2020 Active documented as of this encounter (statuses as of 10/23/2020) Active Problems Problem Noted Date Moderate episode [...] as of this encounter (statuses as of 10/23/2020) Resolved Problems Problem Noted Date Resolved Date [...] as of this encounter (statuses as of 10/23/2020) Immunizations Name Administration Dates Next Due Pneumococcal [...] Sign Reading Time Taken Comments Blood Pressure 122/60 10/23/2020 1:36 PM EST Pulse 76 10/23/2020 1:36 PM EST Temperature 36.7 C (98 F) 10/23/2020 1:36 PM EST Respiratory Rate 18 10/23/2020 1:36 PM EST Oxygen Saturation 98% 10/23/2020 1:36 PM EST Inhaled Oxygen Concentration - - Weight - - Height - - Body Mass Index - - documented in this encounter Progress Notes * Corrina Layne RN - 10/23/2020 1:15 PM EST [facility] Strategy Analyst Monthly Visit Date: 10/20/2020 Time: 1400 Name: Jayla Hayes : 1945 Current Concerns: Patient being seen for CHRISTIE 4 today s/p admission to [facility] 09/18-09-23 with dizziness and sudden lossof vision of right eye. Admitted to rule out CVA. Today, pt reports that she is doing well. Vision back to baseline. Taking medications as ordered. No sx's of sinusitis or uti. To continue with baby aspirin 81mg for life. Can stop plavix as of the Oct per neurology notes. Venkata lipscomb danis instructions indicate that the aspirin is to be stoppedand to continue plavix for life. Will send message to neurology to clarify. Pt currently taking theplavix and not the aspirin. Will update med list once clarified. Has Zio patch on-to finish today and send back. Physical Exam: BP 122/60 (BP Site: Left Arm, BP Position: Sitting, BP Cuff Size: Regular) | Pulse 76 | Temp 36.7 C (98 F) (Tympanic) | Resp 18 | SpO2 98% Pain 0 Physical Exam Problems/Symptoms: Review of Systems Medication Reconciliation: (See medication list) Does patient take medications as ordered: Yes Patient Well Being: PHQ2/9: No questionnaires available. Mood stable. Denies falls Advanced Care Planning: Living Will. Reinforcement/Education: Educated on home safety: ? Create a [...] Dosing. and Purspose. Treatment/Plan: Continue meds as ordered-will get clarification on plavix and asa-which is to continue, which is abbie discontinued Fall precautions Low Na diet Monitor bp with home cuff bid at varying times of day and record TOC5 phone call next week, see in home in 2 weeks. Home Interventions Provided: Consulted PCP/Specialist Reinforced current Plan of Care, including self-management and medication regimen Patient's 'Red Flags': 1. Increased sob 2. Increase cough/ wheezing not relieved by meds 3. Dizziness, changes in vision Patient Needs to Remember: Call [facility] at with any new or [...] visits & schedule home visit with care sales team manager(s)as indicated. Provider is in agreement with Plan of Care: Yes Scheduled to follow up with patient in 1 week via phone. Corrina Layne RN 10/23/2020 1:15 PM documented in this encounter Plan of Treatment Upcoming Encounters Date Type Specialty Care Team Description 10/25/2020 Scheduled Telephone [facility] Corrina Layne RN [address] [place] [address] [phone] 10/28/2020 Scheduled Telephone [facility] Power Machine Operator, [facility] [address] [place] [address] [phone] 12/22/2020 Office Visit Internal Medicine Jade Castillo MD [address] [place] [address] [place] [address] [phone] Health Maintenance Due Date Last Done Comments [...] Documents on File Type Date Recorded Patient Wildlife Officer Expl 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
--- OUTSIDE RECORDS SUMMARY | 2023-06-07 08:00 | External Medical Summary | Summary of Care ---
Author Name Unknown Organization [place] [address] Care Team Providers Care Optical Coating Technician Name Role Phone Yariel Cardoza MD Primary Care Provide r Reason for Visit * Reason Onset Date Comments Medication Question 10/23/2020 Encounter Details Date Type Department Care Team Description 10/23/2020 Telephone [facility], [place] [address] [place] [address] Jonathan Bustillo RN [address] [facility] [place] [address] [phone] Medication Question Allergies Active Allergy Reactions Severity Noted Date Comments Adhesive Tape 06/29/2003 Sensitive to Naproxen Hives 05/28/2015 Ivp Dye Hives 08/20/2000 Latex Other (Please comment) 01/05/2015 Contact rash Ibuprofen Rash 01/05/2015 documented as of this encounter (statuses as of 10/25/2020) Medications Medication Sig Dispensed Refills Start Date [...] Take 0.4 mg by mouth daily. Per [facility] ER 0 06/09/2019 Active ondansetron (ZOFRAN) 4 MG Tablet Take 4 mg by mouth every 6 hours as needed for Nausea. Per [facility] ER 0 06/09/2019 Active Sennosides (SENNA) 8.6 MG CAPS Take 1 Cap by mouth as needed for Constipation (1 cap up to two times daily for constipation). 0 06/12/2019 Active HYDROcodone-acetam inophen 5-325 mg per tab 5-325 MG per tablet 0 07/14/2019 Active nystatin (NYSTOP) 556339 UNIT/GM powderIndications: Candidal skin infection Apply topically [...] mL 1 10/21/2020 Active Aspirin 81 MG Tablet Take 81 mg by mouth daily. X 21 days along with plavix then stop 0 1 Discontinue d(Medicatio n/Dose Changed) documented as of this encounter (statuses as of 10/25/2020) Active Problems Problem Noted Date Moderate episode [...] as of this encounter (statuses as of 10/25/2020) Resolved Problems Problem Noted Date Resolved Date [...] as of this encounter (statuses as of 10/25/2020) Immunizations Name Administration Dates Next Due Pneumococcal [...] Addendum Note - Jonathan Bustillo RN - 10/25/2020 10:16 AM EST Addended by: JONATHAN BUSTILLO on: 10/25/2020 10:16 AM Modules accepted: Orders * Telephone Encounter - Jonathan Bustillo RN - 10/25/2020 10:14 AM EST Spoke with patient who confirmed that she was taking a baby aspirin prior to the recent event. She has stopped her baby asa and will continue with plavix for life. Medication list updated. * Telephone Encounter - Ashley Birmingham PA-C - 10/24/2020 7:43 AM EST Was she on aspirin prior to the event? If not it would be aspirin for life. If she was on aspirin prior then plavix for life. Ashley Birmingham PA-C 10/24/2020 7:44 AM * Telephone Encounter - Jonathan Bustillo RN - 10/23/2020 1:30 PM EST Pt wanting to clarify her aspirin, plavix therapy. Per Venkata Moya DC instructions, she was to take both plavix 75mg and ASA 81mg x 21 days, then stop aspirin and continue plavix for life;however, with neurology notes on 10/11/20 telemed visit, it is indicated that the plavix is to be stopped and to continue asa 81mg for life. Can you please clarify which medication is to be stopped? I can then update the patient. Thank you, Sandrine Bustillo RN, [facility] documented in this encounter Plan of Treatment Upcoming Encounters Date Type Specialty Care Team Description 10/25/2020 Scheduled Telephone [facility] Jonathan Bustillo RN [address] [place] [address] [phone] 10/28/2020 Scheduled Telephone [facility] Oncology Registrar, [facility] [address] [place] [address] [phone] 11/07/2020 Home Visit [facility] Jonathan Bustillo RN [address] [place] [address] [phone] 12/22/2020 Office Visit Internal Medicine Jade Castillo MD [address] [place] [address] [place] [address] Health Maintenance Due Date [...] on File Type Date Recorded Patient Supervisor Shuttle Veneering Expl 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
--- OUTSIDE RECORDS SUMMARY | 2023-06-07 08:00 | External Medical Summary | Summary of Care ---
Author Name Unknown Organization [place] [address] Care Team Providers Care Heating And Ventilating Worker Name Role Phone Yariel Cardoza MD Primary Care Provide r Reason for Visit * Reason Onset Date Comments Medication Question 10/23/2020 Encounter Details Date Type Department Care Team Description 10/23/2020 Telephone [facility], [place] [address] [place] [address] Corrina Layne RN [address] [facility] [place] [address] [phone] Medication Question Allergies Active Allergy Reactions Severity Noted Date Comments Adhesive Tape 06/29/2003 Sensitive to Naproxen Hives 05/28/2015 Ivp Dye Hives 08/20/2000 Latex Other (Please comment) 01/05/2015 Contact rash Ibuprofen Rash 01/05/2015 documented as of this encounter (statuses as of 10/24/2020) Medications Medication Sig Dispensed Refills Start Date [...] Take 0.4 mg by mouth daily. Per [facility] ER 0 06/09/2019 Active ondansetron (ZOFRAN) 4 MG Tablet Take 4 mg by mouth every 6 hours as needed for Nausea. Per [facility] ER 0 06/09/2019 Active Sennosides (SENNA) 8.6 MG CAPS Take 1 Cap by mouth as needed for Constipation (1 cap up to two times daily for constipation). 0 06/12/2019 Active HYDROcodone-acetami nophen 5-325 mg per tab 5-325 MG per tablet 0 07/14/2019 Active nystatin (NYSTOP) 163490 UNIT/GM powderIndications:C andidal skin infection Apply topically to affected area 3 times a day. Apply to the affected area 45 g 1 02/26/2020 Active zoster vac recomb adjuvanted (SHINGRIX) 50 MCG/0.5ML injectionIndication s:Need for vaccination for zoster Inject 0.5 mL into a large muscle now and repeat dose in 60 to 180 days 1 Each 03/03/2020 Active Probiotic Product ([employer] ADV PROBIOTIC [...] as of this encounter (statuses as of 10/24/2020) Active Problems Problem Noted Date Moderate episode [...] as of this encounter (statuses as of 10/24/2020) Resolved Problems Problem Noted Date Resolved Date [...] as of this encounter (statuses as of 10/24/2020) Immunizations Name Administration Dates Next Due Pneumococcal [...] encounter Miscellaneous Notes * Telephone Encounter - Ashley Birmingham PA-C - 10/24/2020 7:43 AM EST Was she on aspirin prior to the event? If not it would be aspirin for life. If she was on aspirin prior then plavix for life. Ashley Birmingham PA-C 10/24/2020 7:44 AM * Telephone Encounter - Corrina Layne RN - 10/23/2020 1:30 PM EST Pt wanting to clarify her aspirin, plavix therapy. Per Venkata Moya BALDO instructions, she was to take both plavix [...] then update the patient. Thank you, Sandrine MORENO, [facility] documented in this encounter Plan of Treatment Upcoming Encounters Date Type Specialty Care Team Description 10/25/2020 Scheduled Telephone [facility] Corrina Layne RN [address] [place] [address] [phone] 10/28/2020 Scheduled Telephone [facility] Glass Cleaner, [facility] [address] [place] [address] [phone] 12/22/2020 Office Visit Internal Medicine Jade Castillo MD [address] [place] [address] [place] [address] Health Maintenance Due Date [...] Documents on File Type Date Recorded Patient Protocol Manager Expl 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
--- OUTSIDE RECORDS SUMMARY | 2023-06-07 08:00 | External Medical Summary | Summary of Care ---
Author Name Unknown Organization [place] [address] Care Team Providers Care Air Traffic Control Supervisor Name Role Phone Yariel Cardoza MD Primary Care Provide r Reason for Visit * Reason Comments [facility]: Maintenance Encounter Details Date Type Department Care Team Description 11/04/2020 Home Visit [facility], [facility] [address] [place] [address] Corrina Layne RN [address] [facility] [place] [address] [phone] Allergies Active Allergy Reactions Severity Noted Date Comments Adhesive Tape 06/29/2003 Sensitive to Naproxen Hives 05/28/2015 Ivp Dye Hives 08/20/2000 Latex Other (Please comment) 01/05/2015 Contact rash Ibuprofen Rash 01/05/2015 documented as of this encounter (statuses as of 11/04/2020) Medications Medication Sig Dispensed Refills Start Date [...] Take 0.4 mg by mouth daily. Per [facility] ER 0 06/09/2019 Active ondansetron (ZOFRAN) 4 MG Tablet Take 4 mg by mouth every 6 hours as needed for Nausea. Per [facility] ER 0 06/09/2019 Active Sennosides (SENNA) 8.6 MG CAPS Take 1 Cap by mouth as needed for Constipation (1 cap up to two times daily for constipation). 0 06/12/2019 Active HYDROcodone-acetami nophen 5-325 mg per tab 5-325 MG per tablet 0 07/14/2019 Active nystatin (NYSTOP) 684874 UNIT/GM powderIndications:C andidal skin infection Apply topically [...] as of this encounter (statuses as of 11/04/2020) Active Problems Problem Noted Date Moderate episode [...] as of this encounter (statuses as of 11/04/2020) Resolved Problems Problem Noted Date Resolved Date [...] as of this encounter (statuses as of 11/04/2020) Immunizations Name Administration Dates Next Due Pneumococcal [...] Reading Time Taken Comments Blood Pressure 118/64 11/04/2020 1:07 PM EST Pulse 72 11/04/2020 1:07 PM EST Temperature 36.8 C (98.3 F) 11/04/2020 1:07 PM ES T Respiratory Rate 18 11/04/2020 1:07 PM EST Oxygen Saturation 98% 11/04/2020 1:07 PM EST Inhaled Oxygen Concentration - - Weight - - Height - - Body Mass Index - - documented in this encounter Progress Notes * Corrina Layne RN - 11/04/2020 1:00 PM EST [facility] [place] Visit Date: 11/04/2020 Time: 9:42 AM Name: Jayla Hayes : 1945 Current Concerns: Pt being seen for 2 week return home visit today. Breathing at baseline. IBS symptoms well controlled at this time. No new neuro symptoms or changes. Has a sore on the inside of her mouth. Unable to wear bottom dentures. Has an appointment with dentist to have it checked next week. Physical Exam: BP 118/64 (BP Site: Left Arm, BP Position: Sitting, BP Cuff Size: Regular) | Pulse 72 | Temp 36.8 C (98.3 F) (Tympanic) | Resp 18 | SpO2 98% Pain 0 Physical Exam Cardiovascular: Rate and [...] Denies falls Advanced Care Planning: Living Will. Patient's Goals of Care: 1. to stay out of the hospital 2. to spend time with family 3.get GI sxs under better control-IBS Reinforcement/Education: Educated on home safety: ? Create [...] regimen. Timing., Dosing. and Purspose. Treatment/Plan: Continue medications as ordered Continue plavix for life Fall precautions Low sodium diet Monitor bp bid and record RNCM return in one month or sooner if needed Home Interventions Provided: Reinforced current Plan of Care, including self-management and medication regimen Patient's 'Red Flags': increased sob, increased cough/wheezing not relived by nebs, fever Patient Needs to Remember: Call [facility] at with any new or worsening health concerns or problems, red flag symptoms. Referrals Needed: n/a Follow Up: Patient encouraged to call the intake phone number for all urgent but not emergent issues. Is the patient new to [facility] within the last 30 days? No, Assess appropriateness for upcoming telehealth visits. Cancel telehealth visits & schedule home visit with care steam presser(s)as indicated. Provider is in agreement with Plan of Care: Yes Scheduled to follow up with patient in 1 month. Corrina Layne RN 11/04/2020 9:42 AM documented in this encounter Plan of Treatment Upcoming Encounters Date Type Specialty Care Team Description 12/02/2020 [facility] Visit [facility] Corrina Layne RN [address] [facility] [place] [address] [phone] 12/22/2020 Office Visit Internal Medicine Jade Castillo MD [address] [place] [address] [place] [address] Health Maintenance Due Date [...] Documents on File Type Date Recorded Patient Cloth Folder Machine Expl 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
--- OUTSIDE RECORDS SUMMARY | 2023-06-07 08:00 | External Medical Summary | Summary of Care ---
Author Name Unknown Organization [place] [address] Care Team Providers Care Cutting Room Supervisor Name Role Phone Yariel Cardoza MD Primary Care Provide r Encounter Details Date Type Department Care Team Description 10/20/2020 Scan Encounter Unspecified Department <No scans attached> Allergies Active Allergy Reactions Severity Noted Date Comments Adhesive Tape 06/29/2003 Sensitive to Naproxen Hives 05/28/2015 Ivp Dye Hives 08/20/2000 Latex Other (Please comment) 01/05/2015 Contact rash Ibuprofen Rash 01/05/2015 documented as of this encounter (statuses as of 10/26/2020) Medications Medication Sig Dispensed Refills Start Date [...] Take 0.4 mg by mouth daily. Per [facility] ER 0 06/09/2019 Active ondansetron (ZOFRAN) 4 MG Tablet Take 4 mg by mouth every 6 hours as needed for Nausea. Per [facility] ER 0 06/09/2019 Active Sennosides (SENNA) 8.6 MG CAPS Take 1 Cap by mouth as needed for Constipation (1 cap up to two times daily for constipation). 0 06/12/2019 Active HYDROcodone-acetami nophen 5-325 mg per tab 5-325 MG per tablet 0 07/14/2019 Active nystatin (NYSTOP) 174987 UNIT/GM powderIndications:C andidal skin infection Apply topically [...] as of this encounter (statuses as of 10/26/2020) Active Problems Problem Noted Date Moderate episode [...] as of this encounter (statuses as of 10/26/2020) Resolved Problems Problem Noted Date Resolved Date [...] as of this encounter (statuses as of 10/26/2020) Immunizations Name Administration Dates Next Due Pneumococcal [...] Encounters Date Type Specialty Care Team Description 10/28/2020 [facility]uled Telephone [facility] E Commerce Marketing Analyst, [facility] Mark Wilcox [address] [place] [address] [phone] 11/07/2020 [facility] Corrina Layne RN [address] [place] [address] [phone] 12/22/2020 Office Visit Internal Medicine Jade Castillo MD [address] [place] [address] [place] [address] Health Maintenance Due Date [...] Documents on File Type Date Recorded Patient Management Professor Expl 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
--- OUTSIDE RECORDS SUMMARY | 2023-06-07 08:00 | External Medical Summary | Summary of Care ---
Author Name Unknown Organization [place] [address] Care Team Providers Care Escalator Service Mechanic Name Role Phone Yariel Cardoza MD Primary Care Provide r Reason for Visit * Reason Onset Date Comments [facility]: Acute 10/25/2020 Encounter Details Date Type Department Care Team Description 10/25/2020 Scheduled Telephone [facility], [facility] [address] [facility] [place] [address] Corrina Layne RN 132 [facility] [place] [address] [phone] Allergies Active Allergy Reactions Severity Noted Date [...] 0.4 mg by mouth daily. Per [facility] ER 0 06/09/2019 Active ondansetron (ZOFRAN) 4 MG Tablet Take 4 mg by mouth every 6 hours as needed for Nausea. Per [facility] ER 0 06/09/2019 Active Sennosides (SENNA) 8.6 MG CAPS Take 1 Cap by mouth as needed for Constipation (1 cap up to two times daily for constipation). 0 06/12/2019 Active HYDROcodone-acetami nophen 5-325 mg per tab 5-325 MG per tablet 0 07/14/2019 Active nystatin (NYSTOP) 907921 UNIT/GM powderIndications:C andidal skin infection Apply topically [...] Telephone Encounter - Corrina Layne RN - 10/26/2020 10:44 AM EST 10/25/20: Call to patient for CHRISTIE 5/ to clarifiy that patient was taking baby aspirin daily prior torecent neurological event and per neurology should continue on plavix for life, stop asa. Updated medication list. Pt reports that she is doing well. Has no acute/ urgent concerns today. Reminded pt Call [facility] at with any new or worsening health concerns or problems, red flag symptoms. documented in this encounter Plan of Treatment Upcoming Encounters Date Type Specialty Care Team Description 10/28/2020 Scheduled Telephone [facility] Heel Seat TrimmerDavid [address] [place] [address] [phone] 11/07/2020 Home Visit [facility] Corrina Layne RN [address] [place] [address] [phone] 12/22/2020 Office Visit Internal Medicine Jade Castillo MD [address] [place] [address] [place] [phone] Health Maintenance Due Date Last Done Comments [...] Documents on File Type Date Recorded Patient Signals Intelligence Analyst Expl 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
--- OUTSIDE RECORDS SUMMARY | 2023-06-07 08:00 | External Medical Summary | Summary of Care ---
Author Name Unknown Organization [place] [address] Care Team Providers Care Boiler Operators Supervisor Name Role Phone Yariel Cardoza MD Primary Care Provide r Reason for Visit * Reason Onset Date Comments [facility]: Maintenance 10/28/2020 Encounter Details Date Type Department Care Team Description 10/28/2020 Scheduled Telephone [facility], [facility] [address] [place] [address] Coordinator, [facility] [place] [address] [phone] Allergies Active Allergy Reactions Severity Noted Date Comments Adhesive Tape 06/29/2003 Sensitive to Naproxen Hives 05/28/2015 Ivp Dye Hives 08/20/2000 Latex Other (Please comment) 01/05/2015 Contact rash Ibuprofen Rash 01/05/2015 documented as of this encounter (statuses as of 10/28/2020) Medications Medication Sig Dispensed Refills Start Date [...] Take 0.4 mg by mouth daily. Per [facility] ER 0 06/09/2019 Active ondansetron (ZOFRAN) 4 MG Tablet Take 4 mg by mouth every 6 hours as needed for Nausea. Per [facility] ER 0 06/09/2019 Active Sennosides (SENNA) 8.6 MG CAPS Take 1 Cap by mouth as needed for Constipation (1 cap up to two times daily for constipation). 0 06/12/2019 Active HYDROcodone-acetami nophen 5-325 mg per tab 5-325 MG per tablet 0 07/14/2019 Active nystatin (NYSTOP) 636098 UNIT/GM powderIndications:C andidal skin infection Apply topically [...] as of this encounter (statuses as of 10/28/2020) Active Problems Problem Noted Date Moderate episode [...] as of this encounter (statuses as of 10/28/2020) Resolved Problems Problem Noted Date Resolved Date [...] as of this encounter (statuses as of 10/28/2020) Immunizations Name Administration Dates Next Due Pneumococcal [...] Miscellaneous Notes * Telephone Encounter - Magda Arreola, DOUBLE END TRIMMER - 10/28/2020 1:14 PM EST Spoke with Jayla. She feeling good. Denies visual problems. She had a headache, took Tylenol at 9 am, which resolved headache. She took generic allergy medication this morning for runny nose and watery eyes, which improved symptoms. Appetite is good Denies shortness of breath, cough or wheezing. Had wheezing on Saturday, which resolved with nebulizer treatment. Using nebulizer prn Denies fever or chills. Denies bladder/bowel problems Denies falls, weakness or dizziness Confirmed appt with Augusta Layne RN for 11/07/20 Routed to care team. documented in this encounter Plan of Treatment Upcoming Encounters Date Type Specialty Care Team Description 11/07/2020 [facility] Visit [facility] Corrina Layne RN [address] [facility] [place] [address] [phone] 12/22/2020 Office Visit Internal Medicine Jade Castillo MD [address] [place] [address] [place] [address] [phone] Health Maintenance Due Date Last Done Comments [...] Documents on File Type Date Recorded Patient Cover Inspector Expl 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
--- OUTSIDE RECORDS SUMMARY | 2023-06-07 08:00 | External Medical Summary | Summary of Care ---
Author Name Unknown Organization [place] [address] Care Team Providers Care Commercial Project Manager Name Role Phone Yariel Cardoza MD Primary Care Provide r Encounter Details Date Type Department Care Team Description 10/14/2020 CardioDiagnostic Study Internal Medicine [address] [place] [address] Yariel Cardoza MD [address] [place] [address] [place] [address] External EKG Review and Interp Allergies Active Allergy Reactions Severity Noted Date Comments Adhesive Tape 06/29/2003 Sensitive to Naproxen Hives 05/28/2015 Ivp Dye Hives 08/20/2000 Latex Other (Please comment) 01/05/2015 Contact rash Ibuprofen Rash 01/05/2015 documented as of this encounter (statuses as of 11/02/2020) Medications Medication Sig Dispensed Refills Start Date [...] Take 0.4 mg by mouth daily. Per [facility] ER 0 06/09/2019 Active ondansetron (ZOFRAN) 4 MG Tablet Take 4 mg by mouth every 6 hours as needed for Nausea. Per [facility] ER 0 06/09/2019 Active Sennosides (SENNA) 8.6 MG CAPS Take 1 Cap by mouth as needed for Constipation (1 cap up to two times daily for constipation). 0 06/12/2019 Active HYDROcodone-acetami nophen 5-325 mg per tab 5-325 MG per tablet 0 07/14/2019 Active nystatin (NYSTOP) 608598 UNIT/GM powderIndications:C andidal skin infection Apply topically [...] as of this encounter (statuses as of 11/02/2020) Active Problems Problem Noted Date Moderate episode [...] as of this encounter (statuses as of 11/02/2020) Resolved Problems Problem Noted Date Resolved Date [...] as of this encounter (statuses as of 11/02/2020) Immunizations Name Administration Dates Next Due Pneumococcal [...] on file documented as of this encounter Procedure Notes * Basilio Delgado Jr., DO - 10/14/2020 12:00 AM EST Associated Order(s): EXTERNAL EKG 8 TO 15 DAYS REASON FOR STUDY: CONCLUSIONS: Patient had a min HR of 47 bpm, max HR of 182 bpm, and avg HR of 66 bpm. Predominant underlying rhythm was Sinus Rhythm. 5 Supraventricular Tachycardia runs occurred, the run with the fastest interval lasting 5 beats with a max rate of 182 bpm, the longest lasting 15 beats with an avg rate of 116 bpm. One episode of Supraventricular Tachycardia conducted with possible aberrancy. Isolated SVEs were rare (<1.0%), SVE Couplets were rare (<1.0%), and SVE Triplets were rare (<1.0%). Isolated VEs were rare (<1.0%), and no VE Couplets or VE Triplets were present. Some VEs may be possible aberrant beats. Agree with above. No sustained arrhythmias or high-grade AV block. documented in this encounter Plan of Treatment Upcoming Encounters Date Type Specialty Care Team Description 11/04/2020 [facility] [place] [address] [phone] 12/22/2020 Office Visit Internal Medicine Jade Castillo MD [address] [place] [address] [place] [address] Health Maintenance Due Date [...] Procedure Name Priority Date/Time Associated Diagnosis Comments EXTERNAL EKG 8 TO 15 DAYS 10/14/2020 12:00 AM EST documented in this encounter Results * EXTERNAL EKG 8 TO 15 DAYS (10/14/2020 12:00 AM EST) Specimen Procedure Note Basilio Delgado Jr., DO - 10/14/2020 12:00 AM EST REASON FOR STUDY: CONCLUSIONS: Patient had a min HR of 47 bpm, max HR of 182 bpm, and avg HR of 66 bpm. Predominant underlying rhythm was Sinus Rhythm. 5 Supraventricular Tachycardia runs occurred, the run with the fastest interval lasting 5 beats with a max rate of 182 bpm, the longest [id number] beats with an avg rate of 116 bpm. One episode of Supraventricular Tachycardia conducted with possible aberrancy. Isolated SVEs were rare (<1.0%), SVE Couplets were rare (<1.0%), and SVE Triplets were rare (<1.0%). Isolated VEs were rare (<1.0%), and no VE Couplets or VE Triplets were present. Some VEs may be possible aberrant beats. Agree with above. No sustained arrhythmias or high-grade AV block. documented in this encounter Advance Directives Documents on File Type Date Recorded Patient Fabric Awning Repairer Expl 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
--- OUTSIDE RECORDS SUMMARY | 2023-06-07 08:01 | External Medical Summary | Summary of Care ---
Author Name Unknown Organization [place] [address] Care Team Providers Care Water Taxi Operator Name Role Phone Yariel Cardoza MD Primary Care Provide r Reason for Visit * Reason Comments Cardiology Study Encounter Details Date Type Department Care Team Description 10/14/2020 Nurse Only Ancillary [address] [place] [address] [place], Nurse [address] [place] [address] Cardiology Study Allergies Active Allergy Reactions Severity Noted Date Comments Adhesive Tape 06/29/2003 Sensitive to Naproxen Hives 05/28/2015 Ivp Dye Hives 08/20/2000 Latex Other (Please comment) 01/05/2015 Contact rash Ibuprofen Rash 01/05/2015 documented as of this encounter (statuses as of 10/14/2020) Medications Medication Sig Dispensed Refills Start Date [...] 0.4 mg by mouth daily. Per [facility] ER 0 06/09/2019 Active ondansetron (ZOFRAN) 4 MG Tablet Take 4 mg by mouth every 6 hours as needed for Nausea. Per [facility] ER 0 06/09/2019 Active Sennosides (SENNA) 8.6 MG CAPS Take 1 Cap by mouth as needed for Constipation (1 cap up to two times daily for constipation). 0 06/12/2019 Active HYDROcodone-acetami nophen 5-325 mg per tab 5-325 MG per tablet 0 07/14/2019 Active atenolol (TENORMIN) 25 MG Tablet TAKE 1 TABLET BY MOUTH EVERY DAY 90 Tab 3 12/05/2019 Active nystatin (NYSTOP) 435595 UNIT/GM powderIndications:C andidal skin infection Apply topically [...] continue plavix for life. 0 09/23/2020 Active Fluticasone Propionate 50 MCG/ACT Nasal Suspension (FLONASE)Indication s:COVID-19 virus infection Administer 2 Sprays into each nostril daily. 11.1 mL 1 09/28/2020 Active documented as of this encounter (statuses as of 10/14/2020) Active Problems Problem Noted Date Moderate episode [...] as of this encounter (statuses as of 10/14/2020) Resolved Problems Problem Noted Date Resolved Date [...] as of this encounter (statuses as of 10/14/2020) Immunizations Name Administration Dates Next Due Pneumococcal [...] as of this encounter Progress Notes * Salma Alaniz LPN - 10/14/2020 3:17 PM EST Zio monitor applied documented in this encounter Plan of Treatment Upcoming Encounters Date Type Specialty Care Team Description 10/20/2020 Home Visit [facility] Corrina Layne RN [address] [place] [address] [phone] 10/28/2020 Scheduled Telephone [facility] Mechanic Senior, [place] [address] [place] [address] [phone] 12/22/2020 Office Visit Internal Medicine Jade Castillo MD [address] [place] [address] [place] [address] [phone] Health Maintenance Due Date Last Done Comments [...] as of this encounter Visit Diagnoses Diagnosis TIA (transient ischemic attack)- Primary Unspecified transient cerebral ischemia documented in this encounter Advance Directives Documents on File Type Date Recorded Patient Hand Drawer In Helper Expl 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
--- OUTSIDE RECORDS SUMMARY | 2023-06-07 08:01 | External Medical Summary | Summary of Care ---
Author Name Unknown Organization [place] [address] Care Team Providers Care Slide Machine Tender Name Role Phone Leanne Cardoza MD Primary Care Provide r Reason for Visit * Reason Comments eRx-Medication Refill Encounter Details Date Type Department Care Team Description 10/20/2020 Refill Internal Medicine [address] [place] [address] Leanne Cardoza MD [address] [place] [address] [place] [address] Allergies Active Allergy Reactions Severity Noted Date Comments Adhesive Tape 06/29/2003 Sensitive to Naproxen Hives 05/28/2015 Ivp Dye Hives 08/20/2000 Latex Other (Please comment) 01/05/2015 Contact rash Ibuprofen Rash 01/05/2015 documented as of this encounter (statuses as of 10/21/2020) Medications Medication Sig Dispensed Refills Start Date [...] 0.4 mg by mouth daily. Per [facility] ER 0 06/09/2019 Active ondansetron (ZOFRAN) 4 MG Tablet Take 4 mg by mouth every 6 hours as needed for Nausea. Per [facility] ER 0 06/09/2019 Active Sennosides (SENNA) 8.6 MG CAPS Take 1 Cap by mouth as needed for Constipation (1 cap up to two times daily for constipation). 0 06/12/2019 Active HYDROcodone-aceta minophen 5-325 mg per tab 5-325 MG per tablet 0 07/14/2019 Active nystatin (NYSTOP) 027732 UNIT/GM powderIndications :Candidal skin infection Apply topically [...] Active Fluticasone Propionate 50 MCG/ACT Nasal Suspension (FLONASE)Indicati ons:COVID-19 virus infection Administer 2 Sprays into each nostril daily. 11.1 mL 1 09/28/2020 Active Atenolol 25 MG Oral Tablet (Tenormin) TAKE 1 TABLET BY MOUTH EVERY DAY 90 Tab 3 10/21/2020 Active atenolol (TENORMIN) 25 MG Tablet TAKE 1 TABLET BY MOUTH EVERY DAY 90 Tab 3 12/05/2019 10/21/19 21 Discontinued documented as of this encounter (statuses as of 10/21/2020) Active Problems Problem Noted Date Moderate episode [...] as of this encounter (statuses as of 10/21/2020) Resolved Problems Problem Noted Date Resolved Date [...] as of this encounter (statuses as of 10/21/2020) Immunizations Name Administration Dates Next Due Pneumococcal [...] encounter Miscellaneous Notes * Telephone Encounter - Myles Holman [facility] - 10/21/2020 2:53 PM EST Signed Prescriptions: Disp Refills Atenolol 25 MG Oral Tablet (Tenormin) 90 Tab 3 Sig: TAKE 1 TABLET BY MOUTH EVERY DAYAuthorizing Provider: LEANNE CARDOZA User: MYLES HOLMAN- documented in this encounter Plan of Treatment Upcoming Encounters Date Type Specialty Care Team Description 10/28/2020 Scheduled Telephone [facility] Research & Analytics Manager, [address] [place] [address] [phone] 12/22/2020 Office Visit Internal Medicine Jade Castillo MD [address] [place] [address] [place] [address] [phone] Health Maintenance Due Date Last Done Comments [...] Documents on File Type Date Recorded Patient Special Education Educational Assistant Expl 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
--- OUTSIDE RECORDS SUMMARY | 2023-06-07 08:01 | External Medical Summary | Summary of Care ---
Author Name Unknown Organization [place] [address] Care Team Providers Care Baccarat Manager Name Role Phone Yariel Cardoza MD Primary Care Provide r Reason for Visit * Reason Comments eRx-Medication Refill Encounter Details Date Type Department Care Team Description 10/20/2020 Refill Family Medicine [facility] [address] [facility] [place] [address] Corey Jennings MD [address] [place] [address] Monilial intertrigo Allergies Active Allergy Reactions Severity Noted Date [...] Take 0.4 mg by mouth daily. Per [facility] ER 0 06/09/2019 Active ondansetron (ZOFRAN) 4 MG Tablet Take 4 mg by mouth every 6 hours as needed for Nausea. Per [facility] ER 0 06/09/2019 Active Sennosides (SENNA) 8.6 MG CAPS Take 1 Cap by mouth as needed for Constipation (1 cap up to two times daily for constipation). 0 06/12/2019 Active HYDROcodone-aceta minophen 5-325 mg per tab 5-325 MG per tablet 0 07/14/2019 Active nystatin (NYSTOP) 398397 UNIT/GM powderIndications :Candidal skin infection Apply topically to affected area 3 times a day. Apply to the affected area 45 g 02/26/2020 Active zoster vac recomb adjuvanted (SHINGRIX) [...] nostril daily. 11.1 mL 1 09/28/2020 Active atenolol (TENORMIN) 25 MG Tablet TAKE [...] Notes * Telephone Encounter - Myles Holman [facility] - 10/21/2020 2:51 PM EST Refused Prescriptions: Disp Refills Fluconazole 150 MG Oral Tablet (Diflucan) 4 Tab 0 Sig: TAKE 1 TABLET BY MOUTH EVERY WEEK FOR 4 WEEKSRefused By: MYLES HOLMANReason for Refusal: Refill Not AppropriateReason for Refusal Comment: please have pt call if she is requesting documented in this encounter Plan of Treatment Upcoming Encounters Date Type Specialty Care Team Description 10/28/2020 Scheduled Telephone [facility] Gas Station Clerk, [address] [place] [address] [phone] 12/22/2020 Office Visit Internal Medicine Jade Castillo MD [address] [place] [address] [place] [address] [phone] Health Maintenance Due Date Last Done Comments [...] as of this encounter Visit Diagnoses Diagnosis Monilial intertrigo Candidiasis of skin and nails documented in this encounter Advance Directives Documents on File Type Date Recorded Patient Pipe Buffer Expl 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
--- OUTSIDE RECORDS SUMMARY | 2023-06-07 08:01 | External Medical Summary | Summary of Care ---
Author Name Unknown Organization [place] [address] Care Team Providers Care Diagnostic Imaging Manager Name Role Phone Yariel Cardoza MD Primary Care Provide r Reason for Visit * Reason Comments eRx-Medication Refill Encounter Details Date Type Department Care Team Description 10/20/2020 Refill Internal Medicine [address] [place] [address] Jade Castillo MD [address] [place] [address] [place] [address] COVID-19 virus infection Allergies Active Allergy Reactions [...] 0.4 mg by mouth daily. Per [facility] ER 0 06/09/2019 Active ondansetron (ZOFRAN) 4 MG Tablet Take 4 mg by mouth every 6 hours as needed for Nausea. Per [facility] ER 0 06/09/2019 Active Sennosides (SENNA) 8.6 MG CAPS Take 1 Cap by mouth as needed for Constipation (1 cap up to two times daily for constipation). 0 06/12/2019 Active HYDROcodone-aceta minophen 5-325 mg per tab 5-325 MG per tablet 0 07/14/2019 Active nystatin (NYSTOP) 867908 UNIT/GM powderIndications :Candidal skin infection Apply topically [...] EVERY DAY 16 mL 1 10/21/2020 Active Fluticasone Propionate 50 MCG/ACT Nasal Suspension (FLONASE)Indicati ons:COVID-19 virus infection Administer 2 Sprays into each nostril daily. 11.1 mL 1 09/28/2020 10/21/19 21 Discontinued documented as of this [...] Miscellaneous Notes * Telephone Encounter - Jag Arana, [facility] - 10/21/2020 6:33 PM EST Signed Prescriptions: Disp Refills Fluticasone Propionate 50 MCG/ACT Nasal Alfred*16 mL 1 Sig: SPRAY 2SPRAYS INTO EACH NOSTRIL EVERY DAYAuthorizing Provider: Nithin CASTILLO User: JAG SORIANO documented in this encounter Plan of Treatment Upcoming Encounters Date Type Specialty Care Team Description 10/28/2020 Scheduled Telephone [facility] Lockstitch Waistline Joiner, [address] [place] [phone] 12/22/2020 Office Visit Internal Medicine Jade Castillo MD [address] [place] [address] [place] [phone] Health Maintenance Due Date Last Done Comments [...] Documents on File Type Date Recorded Patient Pin Worker Expl 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
--- OUTSIDE RECORDS SUMMARY | 2023-06-07 08:01 | External Medical Summary | Summary of Care ---
Author Name Unknown Organization [place] [address] Care Team Providers Care Marketing Database Consultant Name Role Phone Yariel Cardoza MD Primary Care Provide r Reason for Visit * Reason Comments Cardiology Study Encounter Details Date Type Department Care Team Description 10/14/2020 Nurse Only Ancillary [address] [place] [address] [place], Nurse [address] [place] [address] [place] [address] Cardiology Study Allergies [...] [facility] ER 0 06/09/2019 Active Sennosides [...] 90 Tab 3 12/05/2019 Active nystatin (NYSTOP) 746744 UNIT/GM powderIndications:C andidal skin infection Apply topically [...] Home Corrina Layne RN [address] [place] [address] [phone] 10/28/2020 Scheduled Telephone [facility] Chemical Etch Operator, [place] [address] [place] [address] [phone] 12/22/2020 Office Visit Internal Medicine Jade Castillo MD [address] [place] [address] [place] [address] [phone] Health Maintenance Due Date Last Done Comments [...] Documents on File Type Date Recorded Patient Roller Leveler Operator Expl 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
--- OUTSIDE RECORDS SUMMARY | 2023-06-07 08:02 | External Medical Summary | Summary of Care ---
Author Name Unknown Organization [place] [address] Care Team Providers Care Blower Operator Name Role Phone Yariel Cardoza MD Primary Care Provide r Reason for Visit * Reason Comments Hospital Follow-Up Encounter Details Date Type Department Care Team Description 10/11/2020 Telemedicine Neurology [facility] [address] [place] [address] Ashley Birmingham PA-C [address] [place] [address] TIA (transient ischemic attack)*; Vertigo Allergies Active Allergy Reactions Severity Noted Date Comments Adhesive Tape 06/29/2003 Sensitive to Naproxen Hives 05/28/2015 Ivp Dye Hives 08/20/2000 Latex Other (Please comment) 01/05/2015 Contact rash Ibuprofen Rash 01/05/2015 documented as of this encounter (statuses as of 10/11/2020) Medications Medication Sig Dispensed Refills Start Date [...] Take 0.4 mg by mouth daily. Per [facility] ER 0 06/09/2019 Active ondansetron (ZOFRAN) 4 MG Tablet Take 4 mg by mouth every 6 hours as needed for Nausea. Per [facility] ER 0 06/09/2019 Active Sennosides [...] 90 Tab 3 12/05/2019 Active nystatin (NYSTOP) 626805 UNIT/GM powderIndications:C andidal skin infection Apply topically [...] as of this encounter (statuses as of 10/11/2020) Active Problems Problem Noted Date Moderate episode [...] as of this encounter (statuses as of 10/11/2020) Resolved Problems Problem Noted Date Resolved Date [...] as of this encounter (statuses as of 10/11/2020) Immunizations Name Administration Dates Next Due Pneumococcal [...] Reading Time Taken Comments Blood Pressure 122/60 10/11/2020 12:37 PM EST Pulse - - Temperature - - Respiratory Rate - - Oxygen Saturation - - Inhaled Oxygen Concentration - - Weight - - Height - - Body Mass Index - - documented in this encounter Nursing Notes * Elizabeth Serrano, MED ASSIST - 10/11/2020 12:36 PM EST Chief Complaint Patient presents with Hospital Follow-Up Has the patient had any recent hospital admission or emergency room visits? Yes If yes for what reason: Has the patient had any new health information that may be added to the chart? Yes If yes what information needs added: Does the patient have any questions or concerns for the doctor? Yes documented in this encounter Plan of Treatment Upcoming Encounters Date Type Specialty Care Team Description 10/13/2020 Home Visit Family Medicine Ewa Clayton, Community Health Nursing Associate [address] [place] [address] [phone] 10/20/2020 Home Visit [facility] Corrina Layne RN [address] [facility] [place] [address] [phone] 10/28/2020 Scheduled Telephone [facility], [facility] [address] [place] [address] [phone] 12/22/2020 Office Visit Internal Medicine Jade Castillo MD [address] [place] [address] [place] [address] [phone] Health Maintenance Due Date Last Done Comments [...] ischemic attack)- Primary Unspecified transient cerebral ischemia Vertigo Dizziness and giddiness documented in this encounter Advance Directives Documents on File Type Date Recorded Patient Clinic Licensed Practical Nurse Expl 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
--- OUTSIDE RECORDS SUMMARY | 2023-06-07 08:02 | External Medical Summary | Summary of Care ---
Author Name Unknown Organization [place] [address] Care Team Providers Care Pin Drafting Machine Tender Name Role Phone Yariel Cardoza MD Primary Care Provide r Encounter Details Date Type Department Care Team Description 09/23/2020 Scan Encounter Unspecified Department <No scans attached> Allergies Active Allergy Reactions Severity Noted Date Comments Adhesive Tape 06/29/2003 Sensitive to Naproxen Hives 05/28/2015 Ivp Dye Hives 08/20/2000 Latex Other (Please comment) 01/05/2015 Contact rash Ibuprofen Rash 01/05/2015 documented as of this encounter (statuses as of 10/03/2020) Medications Medication Sig Dispensed Refills Start Date End Date Status oxygen GASIndications:Hypo bryan Use 2 L/min(Oxygen) as directed continuous. 1 Each 0 02/18/2017 Active budesonide (PULMICORT) 0.5 MG/2ML nebulizer solution INHALE ONE UNIT DOSE VIAL VIA NEBULIZER TWO TIMES A DAY. 3 08/03/2017 Active Aspirin 81 MG Tablet Take 81 mg by mouth daily. 0 Active VENTOLIN HFA 108 (90 Base) [...] Take 0.4 mg by mouth daily. Per [facility] ER 0 06/09/2019 Active ondansetron (ZOFRAN) 4 MG Tablet Take 4 mg by mouth every 6 hours as needed for Nausea. Per [facility] 0 06/09/2019 Active Sennosides [...] 90 Tab 3 12/05/2019 Active nystatin (NYSTOP) 593938 UNIT/GM powderIndications:C andidal skin infection Apply topically [...] EVERY DAY 90 Tab 3 04/30/2020 Active fluconazole (DIFLUCAN) 150 MG TabletIndications:M onilial intertrigo 1 tab weekly x 4 weeks 4 Tab 0 05/08/2020 Active omeprazole (PRILOSEC) 20 MG CPDRIndications:Gas troesophageal [...] EVERY DAY 90 Tab 1 09/16/2020 Active documented as of this encounter (statuses as of 10/03/2020) Active Problems Problem Noted Date Moderate episode [...] as of this encounter (statuses as of 10/03/2020) Resolved Problems Problem Noted Date Resolved Date [...] as of this encounter (statuses as of 10/03/2020) Immunizations Name Administration Dates Next Due Pneumococcal [...] Encounters Date Type Specialty Care Team Description 10/06/2020 [facility] Corrina Layne RN [address] [facility] [place] [address] [phone] 12/22/2020 Office Visit Internal Medicine Jade Castillo MD [address] [place] [address] [place] [address] [phone] Health Maintenance Due Date Last Done Comments Zoster Vaccines (1 of 2) 1993 *ADVANCE DIRECTIVE NOT ON FILE 12/23/2015 *DEPRESSION SCREENING,ANNUAL FOR PTS 12 AND OVER 08/14/2020 COLONOSCOPY-EVERY 3 YRS AGES 18-100 03/26/2021 03/26/2018, 03/08/2015 Dexa Scan 08/17/2022 08/17/2015 DIABETES SCREEN EVERY 3 YRS-AGE 45 AND ABOVE 09/20/2023 09/20/2020, 05/06/2020, 08/18/2019, Additional history exists DTaP,Tdap,and Td Vaccines (2 [...] Documents on File Type Date Recorded Patient Lead Systems Architect Expl 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
--- OUTSIDE RECORDS SUMMARY | 2023-06-07 08:02 | External Medical Summary | Summary of Care ---
Author Name Unknown Organization [place] [address] Care Team Providers Care Signal And Communications Maintainer Name Role Phone Yariel Cardoza MD Primary Care Provide r Reason for Visit * Reason Onset Date Comments Hospital Follow-Up Hospital Follow-Up 09/28/2020 Encounter Details Date Type Department Care Team Description 09/28/2020 Office Visit Internal Medicine [address] [place] [address] Jade Castillo MD [address] [place] [address] [place] [address] Hospital discharge follow-up*; COVID-19 virus infection; Stenosis of right vertebral artery Allergies Active Allergy Reactions Severity Noted Date Comments Adhesive Tape 06/29/2003 Sensitive to Naproxen Hives 05/28/2015 Ivp Dye Hives 08/20/2000 Latex Other (Please comment) 01/05/2015 Contact rash Ibuprofen Rash 01/05/2015 documented as of this encounter (statuses as of 09/28/2020) Medications Medication Sig Dispensed Refills Start Date End Date Status oxygen GASIndications:H ypoxia Use 2 L/min(Oxygen) as directed continuous. 1 Each 0 7 Active budesonide (PULMICORT) 0.5 MG/2ML nebulizer solution INHALE ONE UNIT DOSE VIAL VIA NEBULIZER TWO TIMES A DAY. 3 7 Active Aspirin 81 MG Tablet Take 81 mg by mouth daily. 0 Active VENTOLIN HFA 108 (90 Base) MCG/ACT inhaler INHALE 2 PUFFS BY MOUTH EVERY 4 HOURS NEEDED FOR WHEEZING. 1 Inhaler 5 8 Active umeclidinium-shireen anterol (ANORO ELLIPTA) 62.5-25 MCG/INH AEPB Inhale 1 Puff by mouth daily. 0 Active Dextromethorphan -guaiFENesin (CORICIDIN HBP CONGESTION/COUGH ) 10-200 MG CAPS Take by mouth. Every 4-6 hours as needed for cough 0 Active dicyclomine (BENTYL) 10 MG CapsuleIndicatio ns:Irritable bowel syndrome with both constipation and diarrhea Take 1 Cap by mouth 4 times a day as needed (abdominal pain, cramping). for abdominal pain 120 Cap 5 9 Active meclizine (ANTIVERT) 25 MG Tablet TAKE 1 TABLET BY MOUTH ONCE EVERY 6 HOURS NEEDED FOR DIZZINESS/VERTIG O 10 Tab 0 9 Active Cholecalciferol 1000 units Capsule Take 2,000 Units by mouth daily. 0 Active tamsulosin (FLOMAX) 0.4 MG Capsule Take 0.4 mg by mouth daily. Per [facility] 0 9 Active ondansetron (ZOFRAN) 4 MG Tablet Take 4 mg by mouth every 6 hours as needed for Nausea. Per [facility] 0 9 Active Sennosides (SENNA) 8.6 MG CAPS Take 1 Cap by mouth as needed for Constipation (1 cap up to two times daily for constipation). 0 9 Active HYDROcodone-acet aminophen 5-325 mg per tab 5-325 MG per tablet 0 9 Active atenolol (TENORMIN) 25 MG Tablet TAKE 1 TABLET BY MOUTH EVERY DAY 90 Tab 3 0 Active nystatin (NYSTOP) 967436 UNIT/GM powderIndication s:Candidal skin infection Apply topically to affected area 3 times a day. Apply to the affected area 45 g 1 0 Active zoster vac recomb adjuvanted (SHINGRIX) 50 MCG/0.5ML injectionIndicat ions:Need for vaccination for zoster Inject 0.5 mL into a large muscle now and repeat dose in 60 to 180 days 1 Each 1 0 Active Probiotic Product ([employer] ADV PROBIOTIC GUMMIES) CHEW Take 2 Gum Dosing Unit by mouth. 0 Active furosemide (LASIX) 20 MG TabletIndication s:Bilateral edema of lower extremity,Pulmon delfin hypertension (HCC) TAKE 1 TABLET BY MOUTH DAILY NEEDED (SWELLING). FOR FLUID ACCUMULATION OR WEIGHT GAIN 30 Tab 5 0 Active albuterol-ipratr opium (DUONEB) 2.5-0.5 MG/3ML nebulizer solutionIndicati ons:COPD, severe (HCC) INHALE 3 MLS VIA NEBULIZER EVERY 4 HOURS NEEDED FOR COUGH, SHORTNESS OF BREATH OR WHEEZING. 360 mL 1 0 Active amLODIPine (NORVASC) 2.5 MG TabletIndication s:HTN, goal below 140/90 TAKE 1 TABLET BY MOUTH EVERY DAY 90 Tab 3 0 Active fluconazole (DIFLUCAN) 150 MG TabletIndication s:Monilial intertrigo 1 tab weekly x 4 weeks 4 Tab 0 0 Active omeprazole (PRILOSEC) 20 MG CPDRIndications: Gastroesophageal reflux disease without esophagitis Take 2 Caps by mouth daily. 180 Cap 1 0 Active hydroCHLOROthiaz riky 25 MG Oral Tablet (HYDRODIURIL) TAKE 1 TABLET BY MOUTH EVERY DAY 90 Tab 2 0 Active Potassium Chloride ER 10 MEQ Oral Tablet Extended Release TAKE 1 TABLET BY MOUTH EVERY DAY 90 Tab 2 0 Active Amitriptyline HCl 25 MG Oral Tablet (ELAVIL)Indicati ons:Irritable bowel syndrome with both constipation and diarrhea,Moderat e episode of recurrent major depressive disorder (HCC) TAKE 1 TABLET BY MOUTH EVERYDAY AT BEDTIME 90 Tab 3 0 Active Sertraline HCl 50 MG Oral Tablet (ZOLOFT)Indicati ons:Moderate episode of recurrent major depressive disorder (HCC) TAKE 1 TABLET BY MOUTH EVERY DAY 90 Tab 1 0 Active Atorvastatin Calcium 40 MG Oral Tablet (LIPITOR) 0 0 Active Clopidogrel Bisulfate 75 MG Oral Tablet (pLAVix) 0 0 Active Fluticasone Propionate 50 MCG/ACT Nasal Suspension (FLONASE)Indicat ions:COVID-19 virus infection Administer 2 Sprays into each nostril daily. 11.1 mL 1 0 Active fluticasone (FLONASE) 50 MCG/ACT nasal spray Administer 2 Sprays into each nostril daily. 1 Inhaler 5 9 09/28/20 20 Discontinued atorvaSTATin (LIPITOR) 20 MG TabletIndication s:Dyslipidemia, goal LDL below 100 TAKE 1 TABLET BY MOUTH EVERY DAY 90 Tab 2 0 09/28/20 20 Discontinued(Med ication/Dose Changed) predniSONE 10 MG Oral Tablet (DELTASONE)Indic ations:Herpes zoster without complication Take 5 tabs for 2 days, 4 tabs for 2 days, 3 tabs for 2 days, 2 tabs for 2 days 1 tab for 2 days 30 Tab 0 0 09/28/20 20 Discontinued(End of Procedure) documented as of this encounter (statuses as of 09/28/2020) Active Problems Problem Noted Date Moderate episode [...] as of this encounter (statuses as of 09/28/2020) Resolved Problems Problem Noted Date Resolved Date [...] as of this encounter (statuses as of 09/28/2020) Immunizations Name Administration Dates Next Due Pneumococcal [...] Reading Time Taken Comments Blood Pressure 122/70 09/28/2020 11:24 AM EST Pulse 75 09/28/2020 11:24 AM EST Temperature 36.7 C (98 F) 09/28/2020 11:24 AM EST Respiratory Rate 16 09/28/2020 11:24 AM EST Oxygen Saturation 92% 09/28/2020 11:24 AM EST Inhaled Oxygen Concentration - - Weight 89.1 kg (196 lb 6.4 oz) 09/28/2020 11:24 AM EST Height 154.9 cm (5' 1") 09/28/2020 11:24 AM EST Body Mass Index 37.11 09/28/2020 11:24 AM EST documented in this encounter Progress Notes * Jade Castillo MD - 09/28/2020 11:24 AM EST Subjective: HPI: Jayla Hayes is a 75 year old female with hx of COPD, HTN, HLD, thyroid nodules (benign FNA), urinary incontinence, depression, DDD, constipation, b/l breast reduction (2004), depression seen after hospital admission. Pt was admitted to the hospital for new onset of dizziness - Dizziness: dx with vertigo, NSR on EKG ---- neurology consult: no acute stroke, however due to vertebral aa stenosis, dual antiplatelet for 3 weeks then plavix lifetime ---- MRA neck: unremarkable ---- MRA Intracranial: no central occlusion, possible stenosis of the distal intracranial portion of the R vertebral aa ---- MRI [place]: no acute finding with possible sinusitis ---- TTE: EF of 55-60% - UTI and sinusitis: treated with IV abx and sent home on augmentin - hypoK+: corrected Today: - doing well - getting home PT: helping - dizziness resolved - using a cane and walker - denied any CP or SOB - denied any fever - denied any gum bleeding - recovered from the COVID infection (dx on 08/24/20) Patient Active Problem List Diagnosis Code Slow transit constipation K59.01 IBS (irritable bowel syndrome) K58.9 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 Bilateral carpal tunnel syndrome G56.03 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 Dyslipidemia, goal LDL below 100 E78.5 COPD, severe ([facility]) J44.9 Severe obesity with body mass index (BMI) of 35.0 to 39.9 with serious comorbidity ([facility]) E66.01 Lumbar degenerative disc disease M51.36 Lumbar facet arthropathy M47.816 Urinary, incontinence, stress female N39.3 Rhinitis, nonallergic J31.0 Multiple thyroid nodules E04.2 Lumbar spinal stenosis M48.061 Primary osteoarthritis of right knee M17.11 Pulmonary hypertension (HCC) I27.20 HTN, goal below 140/90 I10 Moderate episode of recurrent major depressive disorder (HCC) F33.1 Current Outpatient Medications Medication Sig Dispense Refill Atorvastatin Calcium 40 MG Oral Tablet (LIPITOR) Clopidogrel Bisulfate 75 MG Oral Tablet (pLAVix) Fluticasone Propionate 50 MCG/ACT Nasal Suspension (FLONASE) Administer 2 Sprays into each nostril daily. 11.1 mL 1 Amitriptyline HCl 25 MG Oral Tablet (ELAVIL) [...] Caps by mouth daily. 180 Cap 1 fluconazole (DIFLUCAN) 150 MG Tablet 1 tab weekly x 4 weeks 4 Tab 0 amLODIPine (NORVASC) 2.5 MG Tablet TAKE 1 [...] 180 days 1 Each 1 nystatin (NYSTOP) 859198 UNIT/GM powder Apply topically to affected area 3 times a day. Apply to the affected area 45 g 1 atenolol (TENORMIN) 25 MG Tablet TAKE 1 TABLET BY MOUTH EVERY DAY 90 Tab 3 HYDROcodone-acetaminophen 5-325 mg per tab 5-325 MG per tablet Sennosides (SENNA) 8.6 MG CAPS Take 1 Cap by mouth as needed for Constipation (1 cap up to two times daily for constipation). Cholecalciferol 1000 units Capsule Take 2,000 Units by mouth daily. ondansetron (ZOFRAN) 4 MG Tablet Take 4 mg by mouth every 6 hours as needed for Nausea. Per [facility] tamsulosin (FLOMAX) 0.4 MG Capsule Take 0.4 mg by mouth daily. Per [facility] meclizine (ANTIVERT) 25 MG Tablet TAKE 1 TABLET BY MOUTH ONCE EVERY 6 HOURS NEEDED FOR DIZZINESS/VERTIGO 10 Tab 0 dicyclomine (BENTYL) 10 MG Capsule Take 1 Cap by mouth 4 times a day as needed (abdominal pain,cramping). for abdominal pain 120 Cap 5 Dextromethorphan-guaiFENesin (CORICIDIN HBP CONGESTION/COUGH) 10-200 MG CAPS Take by mouth. Every 4-6 hours as needed for cough umeclidinium-vilanterol (ANORO ELLIPTA) 62.5-25 MCG/INH AEPB Inhale 1 Puff by mouth daily. VENTOLIN HFA 108 (90 Base) MCG/ACT inhaler INHALE 2 PUFFS BY MOUTH EVERY 4 HOURS NEEDED FOR WHEEZING. 1 Inhaler 5 Aspirin 81 MG Tablet Take 81 mg by mouth daily. budesonide (PULMICORT) 0.5 MG/2ML nebulizer solution INHALE [...] (HCC) 12/21/2015 COPD, severity to be determined ([facility] [...] performed by Todd Kunz, DO at [facility] BIOPSY OF BREAST, OPEN 1971 benign, right, removed nipple for blocked milk glands BIOPSY OF BREAST, OPEN 1976 left, benign BREAST SURGERY PROCEDURE NEC bilateral Breast Reduction 09/20/03 BUNION CORRECTED WITH DOUBLE OSTEOTOMY 1991 right foot COLONOSCOPY, DIAGNOSTIC (RECTUM) 03/08/2015 adenomatous polyps, repeat 3 yrs/[facility] COLONOSCOPY, DIAGNOSTIC (RECTUM) 03/26/2018 adenomatous & serrated adenomatous polyps, repeat 3 yrs/[facility] EGD, FLEXIBLE, DIAGNOSTIC 01/21/2015 sm HH/[facility] EGD, FLEXIBLE, DIAGNOSTIC 07/22/2018 mild gastritis, Schatzki ring, duodenal polyp/[facility] ESOPHAGOSCOPY RIGID TRANSORAL HYPOPHARYNX ESOPHAGUS 2004 [...] Relation Age of Onset Heart Disorder Father [place] age 55 Heart Disorder Mother CAD, 84 [...] on 09/26/20 COVID-19 Result Value Ref Range [id number] LAB NEGATIVE NEGATIVE BASIC METAB PANEL, BMP [...] 35 MG/DL LDL (DIRECT MEASURE)-OUTSIDE LAB HEMOGLOBIN, [id number] LAB PHOSPHORUS-OUTSIDE LAB PTH-OUTSIDE LAB MICROALBUMIN RATIO-OUTSIDE LAB PROTEIN, UA-OUTSIDE LAB HEMOGLOBIN-OUTSIDE LAB CHEMISTRY COMMENT-OUTSIDE LAB CHEMISTRY-OUTSIDE Result Value Ref Range CREATININE-OUTSIDE LAB EGFR-OUTSIDE LAB POTASSIUM-OUTSIDE LAB GLUCOSE-OUTSIDE LAB HOURS FASTING TRIGLYCERIDES-OUTSIDE LAB CHOLESTEROL-OUTSIDE LAB HDL-OUTSIDE LAB CHOL/HDL RATIO-OUTSIDE LAB LDL (CALCULATED)-OUTSIDE LAB LDL (DIRECT MEASURE)-OUTSIDE LAB HEMOGLOBIN, [id number] LAB PHOSPHORUS-OUTSIDE LAB PTH-OUTSIDE LAB MICROALBUMIN RATIO-OUTSIDE LAB PROTEIN, UA-OUTSIDE LAB TRACE (A) NEGATIVE HEMOGLOBIN-OUTSIDE LAB 14.1 12.0 - 16.0 G/DL CHEMISTRY COMMENT-OUTSIDE LAB Review of Systems All other systems reviewed and are negative. OBJECTIVE: BP 122/70 | Pulse 75 | Temp 36.7 C (98 F) (Tympanic) | Resp 16 | Ht (!) 1.549 m (5' 1") | Wt 89.1 kg (196 lb 6.4 oz) | SpO2 92% | BMI 37.11 kg/m | BSA 1.96 m PHYSICAL EXAM: Vitals are reviewed General:. NAD, well developed HEENT: b/l inflamed nasal turbinates, normal b/l TM with fluid behind the TM, Normal Conjunctiva, EOMI Cardiac:. Normal S1, S2, no murmur Lungs:. CTA, no wheezing or crackles MSK:. Normal gait (uses cane) Psych:. AAOx3, normal affect ASSESSMENT/PLAN: Pt is doing well - c/w home PT Hospital discharge follow-up (Primary) - DISCH MED RECON CUR MED LIS COVID-19 virus infection: - currently asymptomatic - will do flonase for ear congestion - Fluticasone Propionate 50 MCG/ACT Nasal Suspension (FLONASE); Administer 2 Sprays into each nostril daily. Stenosis of right vertebral artery - on statin, aspirin and plavix ---- neurology recommended discontinuing aspirin in 3 weeks (10/14/20) and continuing plavix Jade Castillo MD [place] [phone] documented in this encounter Nursing Notes * Courtney Montiel LPN - 09/28/2020 11:23 AM EST Pt here for hospital follow up States has been doing a lot better - still a little wobbly Pt would like to discuss why she was put on Plavix since she didn't have a stroke States would like ears looked at - both are itchy States right ear cracks when scratched documented in this encounter Plan of Treatment Upcoming Encounters Date Type Specialty Care Team Description 10/03/2020 Home Visit [facility] Marybeth Tillman CRNP [address] [place] [address] [phone] 12/22/2020 Office Visit Internal Medicine Jade Castillo MD [address] [place] [address] [place] [id number] Health Maintenance Due Date Last Done Comments [...] Hospital discharge follow-up- Primary Other follow-up examination COVID-19 virus infection Stenosis of right vertebral artery documented in this encounter Advance Directives Documents on File Type Date Recorded 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
--- OUTSIDE RECORDS SUMMARY | 2023-06-07 08:02 | External Medical Summary | Summary of Care ---
Author Name Unknown Organization [place] [address] Care Team Providers Care Tool Mechanic Name Role Phone Yariel Cardoza MD Primary Care Provide r Reason for Visit * Reason Onset Date Comments COVID-19 Screening 09/30/2020 Encounter Details Date Type Department Care Team Description 09/30/2020 Telephone COVID19 Screening [facility] [address] [place] [address] [id number], Automated Provider COVID-19 Screening Allergies Active Allergy Reactions Severity Noted Date Comments Adhesive Tape 06/29/2003 Sensitive to Naproxen Hives 05/28/2015 Ivp Dye Hives 08/20/2000 Latex Other (Please comment) 01/05/2015 Contact rash Ibuprofen Rash 01/05/2015 documented as of this encounter (statuses as of 09/30/2020) Medications Medication Sig Dispensed Refills Start Date [...] mouth daily. Per [facility] 0 06/09/2019 Active ondansetron (ZOFRAN) 4 MG Tablet Take 4 mg by mouth every 6 hours as needed for Nausea. Per [facility] 0 06/09/2019 Active Sennosides (SENNA) 8.6 MG CAPS Take 1 Cap by mouth as needed for Constipation (1 cap up to two times daily for constipation). 0 06/12/2019 Active HYDROcodone-acetami nophen 5-325 mg per tab 5-325 MG per tablet 0 07/14/2019 Active atenolol (TENORMIN) 25 MG Tablet TAKE 1 TABLET BY MOUTH EVERY DAY 90 Tab 3 12/05/2019 Active nystatin (NYSTOP) 768922 UNIT/GM powderIndications:C andidal skin infection Apply topically [...] Bisulfate 75 MG Oral Tablet (pLAVix) 0 09/23/2020 Active Fluticasone Propionate 50 MCG/ACT Nasal Suspension (FLONASE)Indication s:COVID-19 virus infection Administer 2 Sprays into each nostril daily. 11.1 mL 1 09/28/2020 Active documented as of this encounter (statuses as of 09/30/2020) Active Problems Problem Noted Date Moderate episode [...] as of this encounter (statuses as of 09/30/2020) Resolved Problems Problem Noted Date Resolved Date [...] as of this encounter (statuses as of 09/30/2020) Immunizations Name Administration Dates Next Due Pneumococcal [...] Miscellaneous Notes * Telephone Encounter - Shahriar Olivares Results - 09/30/2020 4:15 AM EST Outreach Attempts IVR Call Sep 29 2020 9:08AM Answered - Success Results COVID: Negative IVR Message: Florin Dickerson. Your COVID-19 from 09/26/2020 00:00:00 results are negative. This means you are NOT infected with coronavirus. If your cold/flu symptoms last longer than 7 days or get worse, contact your primary care physician. If you don't have a primary care physician, go to the nearest [facility] or urgent care clinic. To establish care with a [facility] provider, please call [phone]. Practice social distancing and good hand hygiene to keep yourself and others safe. Your results are also available for your reference in your [employer] account under 'Test & Lab Results.' If you are not enrolled in [employer], you can create an account by going to [email or web address]. You will also receive a letter in the mail with your results. If you are a [employer] staff member or employee, when you receive your result, please call [employer] between 7 a.m. and 4 p.m. at [phone]. Notify them of your test results and for instructions on returning to work after your quarantine period. Press 1 if you would like to speak with a nurse, press 2 to hear this message again. 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
--- OUTSIDE RECORDS SUMMARY | 2023-06-07 08:02 | External Medical Summary | Summary of Care ---
Author Name Unknown Organization [place] [address] Care Team Providers Care Single End Sewer Name Role Phone Yariel Cardoza MD Primary Care Provide r Reason for Visit * Reason Comments [facility]: Transition of Care Encounter Details Date Type Department Care Team Description 10/06/2020 [facility] Visit [facility] [address] [place] [address] Corrina Layne RN [address] [facility] [place] [address] [phone] Allergies Active Allergy Reactions Severity Noted Date Comments Adhesive Tape 06/29/2003 Sensitive to Naproxen Hives 05/28/2015 Ivp Dye Hives 08/20/2000 Latex Other (Please comment) 01/05/2015 Contact rash Ibuprofen Rash 01/05/2015 documented as of this encounter (statuses as of 10/06/2020) Medications Medication Sig Dispensed Refills Start Date [...] [facility] 0 06/09/2019 Active Sennosides (SENNA) 8.6 MG CAPS Take 1 Cap by mouth as needed for Constipation (1 cap up to two times daily for constipation). 0 06/12/2019 Active HYDROcodone-acetam inophen 5-325 mg per tab 5-325 MG per tablet 0 07/14/2019 Active atenolol (TENORMIN) 25 MG Tablet TAKE 1 TABLET BY MOUTH EVERY DAY 90 Tab 3 12/05/2019 Active nystatin (NYSTOP) 664727 UNIT/GM powderIndications: Candidal skin infection Apply topically [...] Active Fluticasone Propionate 50 MCG/ACT Nasal Suspension (FLONASE)Indicatio ns:COVID-19 virus infection Administer 2 Sprays into each nostril daily. 11.1 mL 1 09/28/2020 Active fluconazole (DIFLUCAN) 150 MG TabletIndications: Monilial intertrigo 1 tab weekly x 4 weeks 4 Tab 0 05/08/2020 0 Discontinue d(Medicatio n List Clean Up) documented as of this encounter (statuses as of 10/06/2020) Active Problems Problem Noted Date Moderate episode [...] as of this encounter (statuses as of 10/06/2020) Resolved Problems Problem Noted Date Resolved Date [...] as of this encounter (statuses as of 10/06/2020) Immunizations Name Administration Dates Next Due Pneumococcal [...] Sign Reading Time Taken Comments Blood Pressure 130/70 10/06/2020 10:34 AM EST Pulse 80 10/06/2020 10:34 AM EST Temperature 36.6 C (97.8 F) 10/06/2020 10:[address] Respiratory Rate 18 10/06/2020 10:34 AM EST Oxygen Saturation 97% 10/06/2020 10:34 AM EST Inhaled Oxygen Concentration - - Weight - - Height - - Body Mass Index - - documented in this encounter Progress Notes * Corrina Layne RN - 10/06/2020 10:02 AM EST [facility] Ruby On Rails 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 Patient was admitted to [facility] 09/18-09/23/20 with dizziness, felt like she was going to pass out andsudden loss of vision in right eye. She was also found to have acute sinusitis and UTI. Discharged home on plavix and baby asa x 21 days, then plavix alone for life. Also to continue antibiotic-augmentin which is done now. Atorvastatin was increased from 20mg to 40mg daily. 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 Pt is to follow up in 4-6 weeks with neurology. Post admission she has been seen by eye doctor and she broke tiny blood vessels in her right. Vision back to baseline. No additional dizzy spells or changes in vision since coming home. Does not have follow up appt scheduled with neurology. Will have scheduling follow up. Physical Exam: BP 130/70 (BP Site: Right Arm, BP Position: Sitting, BP Cuff Size: Regular) | Pulse 80 | Temp 36.6 C (97.8 F) (Tympanic) | Resp 18 | SpO2 97% Pain 4 Physical Exam HENT: Mouth/Throat: Mouth: Mucous membranes are moist. Pharynx: Oropharynx is clear. Cardiovascular: Rate and Rhythm: Normal rate and regular rhythm. Pulses: Normal pulses. Pulmonary: Effort: Pulmonary effort is normal. Breath sounds: Normal breath sounds. Abdominal: General: Bowel sounds are normal. Palpations: Abdomen is soft. Musculoskeletal: Right lower leg: Edema (trace ankle edema) present. Left lower leg: No edema. Skin: General: Skin is warm and dry. Neurological: General: No focal deficit present. Mental Status: She is alert and oriented to person, place, and time. Mental status is at baseline. Psychiatric: Mood and Affect: Mood normal. Behavior: Behavior normal. Thought Content: Thought content normal. Judgment: Judgment normal. Problems/Symptoms: Review of Systems Constitutional: Negative for activity change, appetite change and fever. Eyes: Negative. Respiratory: Negative for cough, shortness of breath and wheezing. Cardiovascular: Positive for leg swelling. Negative for chest pain and palpitations. Gastrointestinal: Negative for abdominal distention. Endocrine: Negative. Genitourinary: Negative for difficulty urinating, dysuria, hematuria and urgency. Musculoskeletal: Positive for arthralgias and back pain (lower back pain radiating down right leg). Skin: Negative. Allergic/Immunologic: Negative. Neurological: Negative for dizziness, weakness, light-headedness and numbness. Hematological: Negative. Psychiatric/Behavioral: Negative. Medication Reconciliation: (See medication list) Does patient take medications as ordered: Yes Taking medications as ordered. Patient Well Being: PHQ2/9: No questionnaires available. Mood stable. Fall when discharged from the hospital MACH10 06/16- high risk for falls. Getting home PT, teaching safety precautions. md updated. Advanced Care Planning: Living Will. Patient's Goals of Care: 1. To stay out of the hospital 2. To spend time with family 3. Get gi sx's under better control-progressing Reinforcement/Education: COPD: Pt instructed to: -Call with [...] and Purspose. Treatment/Plan: Continue meds as ordered plavix and baby asa x 21 days together, then just plavix only for life. Follow up with neurology in 3-4 weeks post dc from [facility] Fall precautions [facility] for home PT, OT Low na diet Continue CHRISTIE visits. Home Interventions Provided: Reinforced current Plan of Care, including self-management and medication regimen Updated Exacerbation Plan [facility] ([facility]) Fall Risk Assessment Tool Age 65+: Yes (10/06/20999) Diagnosis (3 or more co-existing): Yes (10/06/20999) Prior history of falls within 3 months: Yes (10/06/20999) Incontinence: Yes (10/06/20999) Visual impairment: Yes (10/06/20999) Impaired functional mobility: Yes (10/06/20999) Environmental hazards: Yes (10/06/20999) Poly Pharmacy (4 or more prescriptions - any type): Yes (10/06/20999) Pain affecting level of function: Yes (10/06/20999) Cognitive impairment: No (10/06/20999) Score - a score of 4 or more is considered at risk for fallin (10/06/20999) Patient's 'Red Flags': 1. Increased sob 2. Increased cough/ wheezing not relieved by nebs 3. fever Patient Needs to Remember: Call [facility] at with any new or [...] & schedule home visit with care steam gigger(s)as indicated. Provider is in agreement with Plan of Care: Yes Scheduled to follow up with patient in 1 wk. Corrina Layne RN 10/06/2020 10:05 AM documented in this encounter Plan of Treatment Upcoming Encounters Date Type Specialty Care Team Description 10/20/2020 [facility] Corrina Layne RN [address] [facility] [place] [id number] 12/22/2020 Office Visit Internal Medicine Jade Castillo MD [address] [place] [address] [place] [address] Health Maintenance Due Date [...] Documents on File Type Date Recorded Patient Stem Roller Expl 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
--- OUTSIDE RECORDS SUMMARY | 2023-06-07 08:02 | External Medical Summary | Summary of Care ---
Author Name Unknown Organization [place] [address] Care Team Providers Care Screen Printer Helper Name Role Phone Yariel Cardoza MD Primary Care Provide r Reason for Visit * Reason Onset Date Comments Outpatient Testing 10/12/2020 ZIO Encounter Details Date Type Department Care Team Description 10/12/2020 Telephone Internal Medicine [address] [place] [address] Yariel Cardoza MD [address] [place] [address] [place] [phone] Outpatient Testing (ZIO ) Allergies Active Allergy Reactions Severity Noted Date Comments Adhesive Tape 06/29/2003 Sensitive to Naproxen Hives 05/28/2015 Ivp Dye Hives 08/20/2000 Latex Other (Please comment) 01/05/2015 Contact rash Ibuprofen Rash 01/05/2015 documented as of this encounter (statuses as of 10/13/2020) Medications Medication Sig Dispensed Refills Start Date [...] [facility] 0 06/09/2019 Active ondansetron (ZOFRAN) 4 MG Tablet Take 4 mg by mouth every 6 hours as needed for Nausea. Per [facility] 0 06/09/2019 Active Sennosides (SENNA) 8.6 MG CAPS Take 1 Cap by mouth as needed for Constipation (1 cap up to two times daily for constipation). 0 06/12/2019 Active HYDROcodone-acetami nophen 5-325 mg per tab 5-325 MG per tablet 0 07/14/2019 Active atenolol (TENORMIN) 25 MG Tablet TAKE 1 TABLET BY MOUTH EVERY DAY 90 Tab 3 12/05/2019 Active nystatin (NYSTOP) 469641 UNIT/GM powderIndications:C andidal skin infection Apply topically [...] as of this encounter (statuses as of 10/13/2020) Active Problems Problem Noted Date Moderate episode [...] as of this encounter (statuses as of 10/13/2020) Resolved Problems Problem Noted Date Resolved Date [...] as of this encounter (statuses as of 10/13/2020) Immunizations Name Administration Dates Next Due Pneumococcal [...] Telephone Encounter - Zulema Land OSA - 10/13/2020 3:50 PM EST Scheduled, pt aware. * Telephone Encounter - Yariel Cardoza MD - 10/12/2020 3:10 PM EST Please let patient know that I ordered the heart monitor so she can have it put on in [place] on a nurse visit. * Telephone Encounter - Yariel Cardoza MD - 10/12/2020 3:07 PM EST ----- Message from Ashley Birmingham PA-C sent at 10/11/2020 12:48 PM EST ----- Regarding: zio We recommended a ZIO placement for hospitalization follow up. I talked to her by phone today and was hoping you could order it from your office [place] Thank you in advance. Ashley Birmingham PA-C 10/11/2020 12:50 PM documented in this encounter Plan of Treatment Upcoming Encounters Date Type Specialty Care Team Description 10/14/2020 Nurse Only Ancillary Nurse Mikel Henriquez [address] [place] [address] [place] [address] [phone] 10/20/2020 [facility] Corrina Layne RN [address] [facility] [place] [address] [phone] 10/28/2020 [facility]uled Telephone [facility] [employer] [address] [place] [address] [phone] 12/22/2020 Office Visit Internal Medicine Jade Castillo MD [address] [place] [address] [place] [address] [phone] Scheduled Orders Name Type Priority Associated Diagnoses Orde r Schedule EXTERNAL EKG 2 TO 7 DAYS Holter Routine TIA (transient ischemic attack) Expected: 10/12/2020, Expires: 04/11/2021 Health Maintenance Due Date Last Done Comments [...] Documents on File Type Date Recorded 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
--- OUTSIDE RECORDS SUMMARY | 2023-06-07 08:02 | External Medical Summary | Summary of Care ---
Author Name Unknown Organization [place] [address] Care Team Providers Care Wire Weaver Helper Name Role Phone Yariel Cardoza MD Primary Care Provide r Encounter Details Date Type Department Care Team Description 09/27/2020 Scan Encounter Unspecified Department <No scans attached> [...] abdominal pain 120 Cap 5 03/06/2019 Active fluticasone (FLONASE) 50 MCG/ACT nasal spray Administer 2 Sprays into each nostril daily. 1 Inhaler 5 05/12/2019 Active meclizine (ANTIVERT) 25 MG Tablet TAKE 1 TABLET BY MOUTH ONCE EVERY 6 HOURS NEEDED FOR DIZZINESS/VERTIGO 10 Tab 0 06/05/2019 Active Cholecalciferol 1000 units Capsule Take 2,000 Units by mouth daily. 0 Active tamsulosin (FLOMAX) 0.4 MG Capsule Take 0.4 mg by mouth daily. Per [facility] 0 06/09/2019 Active ondansetron (ZOFRAN) 4 MG Tablet Take 4 mg by mouth every 6 hours as needed for Nausea. Per [facility] 0 06/09/2019 Active Sennosides (SENNA) 8.6 MG CAPS Take 1 Cap by mouth as needed for Constipation (1 cap up to two times daily for constipation). 0 06/12/2019 Active HYDROcodone-acetami nophen 5-325 mg per tab 5-325 MG per tablet 0 07/14/2019 Active atenolol (TENORMIN) 25 MG Tablet TAKE 1 TABLET BY MOUTH EVERY DAY 90 Tab 3 12/05/2019 Active atorvaSTATin (LIPITOR) 20 MG TabletIndications:D yslipidemia, goal LDL below 100 TAKE 1 TABLET BY MOUTH EVERY DAY 90 Tab 2 12/26/2019 Active Additional Information Patient taking differently: 20 mg, Every other day, Reported on 05/08/2020 nystatin (NYSTOP) 828193 UNIT/GM powderIndications:C andidal skin infection Apply topically [...] mouth daily. 180 Cap 1 06/03/2020 Active predniSONE 10 MG Oral Tablet (DELTASONE)Indicati ons:Herpes zoster without complication Take 5 tabs for 2 days, 4 tabs for 2 days, 3 tabs for 2 days, 2 tabs for 2 days 1 tab for 2 days 30 Tab 0 06/26/2020 Active hydroCHLOROthiazide 25 MG Oral Tablet (HYDRODIURIL) [...] Encounters Date Type Specialty Care Team Description 09/28/2020 Office Visit Internal Medicine Jade Castillo MD [address] [place] [address] [place] [address] Arrived 10/03/2020 Home Visit [facility] Marybeth Tillman CRNP [address] [facility] [place] [address] [phone] 12/22/2020 Office Visit Internal Medicine Jade Castillo MD [address] [place] [address] [place] [address] [phone] Health Maintenance Due Date Last Done Comments [...] on File Type Date Recorded Patient It Support Manager Expl anation Advanced Directive Advanced [...]
--- OUTSIDE RECORDS SUMMARY | 2023-06-07 08:02 | External Medical Summary | Summary of Care ---
Author Name Unknown Organization [place] [address] Care Team Providers Care Petroleum Terminal Plant Operator Name Role Phone Yariel Cardoza MD Primary Care Provide r Reason for Visit * Reason Comments [facility]: Maintenance Encounter Details Date Type Department Care Team Description 10/13/2020 Home Visit Care Coordination [address] [place] [address] Ewa Clayton, Community Health Nuclear Weapons Custodian [address], [place] [id number] Allergies Active Allergy Reactions Severity Noted Date [...] [facility] 0 06/09/2019 Active Sennosides [...] 90 Tab 3 12/05/2019 Active nystatin (NYSTOP) 317771 UNIT/GM powderIndications:C andidal skin infection Apply topically [...] Sign Reading Time Taken Comments Blood Pressure 132/78 10/13/2020 5:13 PM EST Pulse 75 10/13/2020 5:13 PM EST Temperature 36.7 C (98.1 F) 10/13/2020 5:13 PM ES T Respiratory Rate 18 10/13/2020 5:13 PM EST Oxygen Saturation 91% 10/13/2020 5:13 PM EST Inhaled Oxygen Concentration - - Weight - - Height - - Body Mass Index - - documented in this encounter Progress Notes * Ewa Clayton, Community Health Nuclear Weapons Custodian - 10/12/2020 11:06 AM EST Community Health Nuclear Weapons Custodian Visit Date: 10/13/2020 Time: 12:09 PM Name: Jayla Hayes : 1945 Source of Information: Patient COVID-19 screening completed: Yes Vitals: Vital signs completed: Yes, vital signs within normal range. BP 132/78 (BP Site: Left Arm, BP Position: Sitting) | Pulse 75 | Temp 36.7 C (98.1 F) | Resp 18| SpO2 91% Condition Changes: Changes in health or social status since last visit: No Patient reports that she is getting overwhelmed.''You will be the 3rd person coming to check my vitals this week.'' [facility] have been seeing patient as well. The patient has new concerns since last visit: No Doing well PT will be over this week Medications: Medication review completed? No, - Does the patient have barriers to medication adherence? No. Telehealth: This is a telehealth visit: No. Symptoms Surveys and Evaluations: [facility] completed this visit: No Last flowsheet values for [facility]: Age 65+: 1 (10/06/2020 10:00 AM) Diagnosis (3 or more co-existing): 1 (10/06/2020 10:00 AM) Prior history of falls within 3 months: 1 (10/06/2020 10:00 AM) Incontinence: 1 (10/06/2020 10:00 AM) Visual impairment: 1 (10/06/2020 10:00 AM) Impaired functional mobility: 1 (10/06/2020 10:00 AM) Environmental hazards: 1 (10/06/2020 10:00 AM) Poly Pharmacy (4 or more prescriptions - any type): 1 (10/06/2020 10:00 AM) Pain affecting level of function: 1 (10/06/2020 10:00 AM) Cognitive impairment: 0 (10/06/2020 10:00 AM) Score - a score of 4 or more is considered at risk for fallin (10/06/2020 10:00 AM) Transition of Care: Discharge instructions reviewed with patient/caregiver Patient's 'Red Flags': 1. Increased sob 2. Increased cough/ wheezing not relieved by nebs 3. fever COPD: Pt instructed to: -Call with increased SOB, wheezing, chest tightness, increased cough, increased sputum with change in color or consistency and fever. -Wash hands often -Drink plenty of fluids -Use inhalers as directed, do not stop or skip doses -Avoid stress -Rest when tired or SOB -Avoid triggers -Clean inhalers once a week Plan: Notified Provider/Police Captain Seniorchange management manager in condition Follow Up: Patient encouraged to call the intake phone number for all urgent but not emergent issues. Scheduled to follow up with patient as needed [facility] Nuclear Weapons Custodian 10/13/2020 12:09 PM documented in this encounter Plan of Treatment Upcoming Encounters Date Type Specialty Care Team Description 10/14/2020 Nurse Only Ancillary Nurse Mikel Henriquez [address] [place] [address] [place] [address] [phone] 10/20/2020 Home [facility] Corrina Layne RN [address] [address] [phone] 10/28/2020 [facility]uled Telephone [facility] Officer[facility] [address] [place] [address] [phone] 12/22/2020 Office Visit Internal Medicine Jade Castillo MD [address] [place] [address] [place] [address] [phone] Health Maintenance Due Date Last Done Comments [...] Documents on File Type Date Recorded 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
--- OUTSIDE RECORDS SUMMARY | 2023-06-07 08:02 | External Medical Summary | Summary of Care ---
Author Name Unknown Organization [place] [address] Care Team Providers Care Machine Maintenance Servicer Name Role Phone Yariel Cardoza MD Primary Care Provide r Reason for Visit * Reason Onset Date Comments COVID-19 Screening 09/29/2020 Encounter Details Date Type Department Care Team Description 09/29/2020 Telephone COVID19 Screening [facility] [address] [place] [id number], Automated Provider COVID-19 Screening Allergies Active Allergy Reactions Severity Noted Date Comments Adhesive Tape 06/29/2003 Sensitive to Naproxen Hives 05/28/2015 Ivp Dye Hives 08/20/2000 Latex Other (Please comment) 01/05/2015 Contact rash Ibuprofen Rash 01/05/2015 documented as of this encounter (statuses as of 09/29/2020) Medications Medication Sig Dispensed Refills Start Date [...] mg by mouth daily. Per [facility] 0 06/09/2019 Active ondansetron (ZOFRAN) 4 MG Tablet Take 4 mg by mouth every 6 hours as needed for Nausea. Per [facility] 0 06/09/2019 Active Sennosides (SENNA) 8.6 MG CAPS Take 1 Cap by mouth as needed for Constipation (1 cap up to two times daily for constipation). 0 06/12/2019 Active HYDROcodone-acetami nophen 5-325 mg per tab 5-325 MG per tablet 0 07/14/2019 Active atenolol (TENORMIN) 25 MG Tablet TAKE 1 TABLET BY MOUTH EVERY DAY 90 Tab 3 12/05/2019 Active nystatin (NYSTOP) 201986 UNIT/GM powderIndications:C andidal skin infection Apply topically [...] as of this encounter (statuses as of 09/29/2020) Active Problems Problem Noted Date Moderate episode [...] as of this encounter (statuses as of 09/29/2020) Resolved Problems Problem Noted Date Resolved Date [...] as of this encounter (statuses as of 09/29/2020) Immunizations Name Administration Dates Next Due Pneumococcal [...] Telephone Encounter - Shahriar Olivares Results - 09/29/2020 6:09 AM EST Outreach Attempts Sep 28 2020 9:03AM - Fail to reach patient Results COVID: Negative IVR Message: Unsuccessful contact, no education provided documented in this encounter Plan of Treatment Upcoming Encounters Date Type Specialty Care Team Description 10/03/2020 [facility] Visit [facility] Marybeth Tillman CRNP [address] [facility] [place] [address] [phone] 12/22/2020 Office Visit Internal Medicine Jade Castillo MD [address] [place] [address] [place] [address] Health Maintenance Due Date [...] on File Type Date Recorded 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
--- OUTSIDE RECORDS SUMMARY | 2023-06-07 08:03 | External Medical Summary | Summary of Care ---
Author Name Unknown Organization [facility] [place] [address] Care Team Providers Care Chief Executive Or Managing Director Name Role Phone Yariel Cardoza MD Primary Care Provide r Reason for Visit * Reason Onset Date Comments [facility]: Maintenance 09/27/2020 Encounter Details Date Type Department Care Team Description 09/27/2020 Scheduled Telephone [facility], [facility] [address] [place] [address] Corrina Layne, SELENE 132 [facility] [place] [address] [phone] Allergies Active Allergy Reactions Severity Noted Date [...] Take 0.4 mg by mouth daily. Per [facility] 0 06/09/2019 Active ondansetron (ZOFRAN) 4 MG Tablet Take 4 mg by mouth every 6 hours as needed for Nausea. Per [facility] 0 06/09/2019 Active Sennosides [...] other day, Reported on 05/08/2020 nystatin (NYSTOP) [id number] UNIT/GM powderIndications:C andidal skin infection Apply topically [...] Telephone Encounter - Corrina Layne RN - 09/28/2020 8:55 AM EST Called prior to visit to remind of visit scheduled for 09/27/20. Pt requests visit be rescheduled after holidays. Denies any acute / urgent needs. Denies fever, increased sob, cough. Eating/drinking per her normal. Reminded to Call [facility] at with any new or worsening health concerns or problems, red flag symptoms. documented in this encounter Plan of Treatment Upcoming Encounters Date Type Specialty Care Team Description 09/28/2020 Office Visit Internal Medicine Jade Castillo MD [address] [place] [address] [place] [address] [phone] 10/03/2020 Home Visit [facility] Marybeth Tillman CRNP 132 [facility] [place] [address] [phone] 12/22/2020 Office Visit Internal Medicine Jade Castillo MD [address] [place] [address] [place] [address] [phone] Health Maintenance Due Date Last Done Comments [...] Documents on File Type Date Recorded Patient Employee Development Manager Expl anation Advanced Directive Advanced [...]
--- OUTSIDE RECORDS SUMMARY | 2023-06-07 08:03 | External Medical Summary | Summary of Care ---
Author Name Unknown Organization [place] [address] Care Team Providers Care Flask Carrier Name Role Phone Yariel Cardoza MD Primary Care Provide r Encounter Details Date Type Department Care Team Description 09/26/2020 Scan Encounter Unspecified Department <No scans attached> [...] other day, Reported on 05/08/2020 nystatin (NYSTOP) [id number] UNIT/GM powderIndications:C andidal skin infection Apply topically [...] Office Visit Internal Medicine Jade Castillo MD [address] [place] [address] [place] [address] 10/03/2020 Home Visit [facility] Marybeth Tillman CRNP 132 [facility] [place] [address] [phone] 12/22/2020 Office Visit Internal Medicine Jade Castillo MD [address] [place] [address] [place] [address] [phone] Health Maintenance Due Date Last Done Comments [...] Documents on File Type Date Recorded Patient Digital Camera Technician Expl anation Advanced Directive Advanced [...]
--- OUTSIDE RECORDS SUMMARY | 2023-06-07 08:03 | External Medical Summary | Summary of Care ---
Author Name Unknown Organization [place] [address] Care Team Providers Care Senior Software Project Manager Name Role Phone Yariel Cardoza MD Primary Care Provide r Encounter Details Date Type Department Care Team Description 09/18/2020 Scan Encounter Unspecified Department <No scans attached> Allergies Active Allergy Reactions Severity Noted Date Comments Adhesive Tape 06/29/2003 Sensitive to Naproxen Hives 05/28/2015 Ivp Dye Hives 08/20/2000 Latex Other (Please comment) 01/05/2015 Contact rash Ibuprofen Rash 01/05/2015 documented as of this encounter (statuses as of 09/19/2020) Medications Medication Sig Dispensed Refills Start Date [...] 0.4 mg by mouth daily. Per [facility] 0 06/09/2019 Active ondansetron (ZOFRAN) 4 MG Tablet Take 4 mg by mouth every 6 hours as needed for Nausea. Per [facility] 0 06/09/2019 Active Sennosides [...] other day, Reported on 05/08/2020 nystatin (NYSTOP) 336605 UNIT/GM powderIndications:C andidal skin infection Apply topically [...] as of this encounter (statuses as of 09/19/2020) Active Problems Problem Noted Date Moderate episode [...] as of this encounter (statuses as of 09/19/2020) Resolved Problems Problem Noted Date Resolved Date [...] as of this encounter (statuses as of 09/19/2020) Immunizations Name Administration Dates Next Due Pneumococcal [...] Visit Internal Medicine Jade Castillo MD [address] [place] [address] [place] [address] Health Maintenance Due Date Last Done Comments Zoster Vaccines (1 of 2) 1993 *ADVANCE DIRECTIVE NOT ON FILE 12/23/2015 *DEPRESSION SCREENING,ANNUAL FOR PTS 12 AND OVER 08/14/2020 COLONOSCOPY-EVERY 3 YRS AGES 18-100 03/26/2021 03/26/2018, 03/08/2015 Dexa Scan 08/17/2022 08/17/2015 DIABETES SCREEN EVERY 3 YRS-AGE 45 AND ABOVE 05/06/2023 05/06/2020, 08/18/2019, 08/09/2019, Additional history exists DTaP,Tdap,and Td Vaccines (2 [...] on File Type Date Recorded Patient Inside Solar Sales Consultant Expl anation Advanced Directive Advanced [...]
--- OUTSIDE RECORDS SUMMARY | 2023-06-07 08:03 | External Medical Summary | Summary of Care ---
Author Name Unknown Organization [place] [address] Care Team Providers Care Sheriffs Officer Name Role Phone Yariel Cardoza MD Primary Care Provide r Encounter Details Date Type Department Care Team Description 09/19/2020 Scan Encounter Unspecified Department <No scans attached> Allergies Active Allergy Reactions Severity Noted Date Comments Adhesive Tape 06/29/2003 Sensitive to Naproxen Hives 05/28/2015 Ivp Dye Hives 08/20/2000 Latex Other (Please comment) 01/05/2015 Contact rash Ibuprofen Rash 01/05/2015 documented as of this encounter (statuses as of 09/20/2020) Medications Medication Sig Dispensed Refills Start Date [...] mg by mouth daily. Per [facility] 0 06/09/2019 Active ondansetron (ZOFRAN) 4 MG Tablet Take 4 mg by mouth every 6 hours as needed for Nausea. Per [facility] 0 06/09/2019 Active Sennosides (SENNA) 8.6 [...] other day, Reported on 05/08/2020 nystatin (NYSTOP) [id number] UNIT/GM powderIndications:C andidal skin infection Apply topically [...] as of this encounter (statuses as of 09/20/2020) Active Problems Problem Noted Date Moderate episode [...] as of this encounter (statuses as of 09/20/2020) Resolved Problems Problem Noted Date Resolved Date [...] as of this encounter (statuses as of 09/20/2020) Immunizations Name Administration Dates Next Due Pneumococcal [...] Visit Internal Medicine Jade Castillo MD [address] [place] [address] [place] [address] Health Maintenance Due Date [...] Documents on File Type Date Recorded Patient Vp Global Expl 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
--- OUTSIDE RECORDS SUMMARY | 2023-06-07 08:03 | External Medical Summary | Summary of Care ---
Author Name Unknown Organization [place] [address] Care Team Providers Care Trustee Of Estate Name Role Phone Yariel Cardoza MD Primary [...] Take 0.4 mg by mouth daily. Per [facility] 0 06/09/2019 Active ondansetron (ZOFRAN) 4 MG Tablet Take 4 mg by mouth every 6 hours as needed for Nausea. Per [facility] 0 06/09/2019 Active [...] other day, Reported on 05/08/2020 nystatin (NYSTOP) [id number] UNIT/GM powderIndications:C andidal skin infection Apply topically [...] Office Visit Internal Medicine Jade Castillo MD [address] [place] [address] [place] [address] Health Maintenance Due Date [...] Documents on File Type Date Recorded Patient Seo Intern Expl 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
--- OUTSIDE RECORDS SUMMARY | 2023-06-07 08:03 | External Medical Summary | Summary of Care ---
Author Name Unknown Organization [place] [address] Care Team Providers Care German Teacher Name Role Phone Yariel Cardoza MD Primary Care Provide r Encounter Details Date Type Department Care Team Description 09/26/2020 Orders Only Internal Medicine [address] [address] Yariel Cardoza MD [address] [place] [address] [place] [address] Allergies Active Allergy Reactions Severity Noted Date Comments Adhesive Tape 06/29/2003 Sensitive to Naproxen Hives 05/28/2015 Ivp Dye Hives 08/20/2000 Latex Other (Please comment) 01/05/2015 Contact rash Ibuprofen Rash 01/05/2015 documented as of this encounter (statuses as of 09/26/2020) Medications Medication Sig Dispensed Refills Start Date [...] other day, Reported on 05/08/2020 nystatin (NYSTOP) [id number] UNIT/GM powderIndications:C andidal skin infection Apply topically [...] as of this encounter (statuses as of 09/26/2020) Active Problems Problem Noted Date Moderate episode [...] as of this encounter (statuses as of 09/26/2020) Resolved Problems Problem Noted Date Resolved Date [...] as of this encounter (statuses as of 09/26/2020) Immunizations Name Administration Dates Next Due Pneumococcal [...] Encounters Date Type Specialty Care Team Description 09/27/2020 Home Visit [facility] Corrina Layne RN [address] [place] [address] [phone] 09/28/2020 Office Visit Internal Medicine Jade Castillo MD [address] [facility] [place] [address] [phone] 10/03/2020 Home Visit [facility] Marybeth Tillman CRNP 132 [facility] [place] [address] [phone] 12/22/2020 Office Visit Internal Medicine Jade Castillo MD [address] [facility] [place] [address] [phone] Health Maintenance Due Date Last Done Comments Zoster Vaccines (1 of 2) 1993 *ADVANCE DIRECTIVE NOT ON FILE 12/23/2015 *DEPRESSION SCREENING,ANNUAL FOR PTS 12 AND OVER 08/14/2020 COLONOSCOPY-EVERY 3 YRS AGES 18-100 03/26/2021 03/26/2018, 03/08/2015 Dexa Scan 08/17/2022 08/17/2015 DIABETES SCREEN EVERY 3 YRS-AGE 45 AND ABOVE 05/06/2023 09/22/2020, 09/20/2020, 05/06/2020, Additional history exists DTaP,Tdap,and [...] Procedure Name Priority Date/Time Associated Diagnosis Comments BASIC METAB PANEL, BMP Routine 09/22/2020 CHEMISTRY-OUTSIDE Routine 09/20/2020 COVID-19 Routine 09/18/2020 CHEMISTRY-OUTSIDE Routine 09/18/2020 documented in this encounter Results * BASIC METAB PANEL, BMP (09/22/2020) CREATININE-OUTSIDE LAB 0.87 0.6 - 1.2 MG/DL OUTSIDE LAB (SEE SCANNED REPORT) EGFR-OUTSIDE LAB 64.3 ML/MIN OUTSIDE LAB (SEE SCANNED REPORT) POTASSIUM-OUTSIDE LAB 5.2(A) 3.5 - 5.1 MMOL/L OUTSIDE LAB (SEE SCANNED REPORT) GLUCOSE-OUTSIDE LAB 120(A) 70 - 99 MG/DL OUTSIDE LAB (SEE SCANNED REPORT) Specimen Narrative Performed At OUTSIDE LAB (SEE SCANNED REPORT) * CHEMISTRY-OUTSIDE (09/20/2020) CREATININE-OUTSIDE LAB 0.79 0.6 - 1.2 MG/DL OUTSIDE LAB (SEE SCANNED REPORT) EGFR-OUTSIDE LAB 72.2 ML/MIN OUTSIDE LAB (SEE SCANNED REPORT) POTASSIUM-OUTSIDE LAB 4.2 3.5 - 5.1 MMOL/L OUTSIDE LAB (SEE SCANNED REPORT) GLUCOSE-OUTSIDE LAB 89 70 - 99 MG/DL OUTSIDE LAB (SEE SCANNED REPORT) HOURS FASTING OUTSIDE LAB (S EE SCANNED REPORT) TRIGLYCERIDES-OUTSIDE LAB 68 0 - 150 MG/DL OUTSIDE LAB (SEE SCANNED REPORT) CHOLESTEROL-OUTSIDE LAB 87 0 - 200 MG/DL OUTSIDE LAB (SEE SCANNED REPORT) HDL-OUTSIDE LAB 38(A) 40 - 60 MG/DL OUTSIDE LAB (SEE SCANNED REPORT) CHOL/HDL RATIO-OUTSIDE LAB 2 OUTSIDE LAB (SEE SCANNED REPORT) LDL (CALCULATED)-OUTSIDE LAB 35 MG/DL OUTSIDE LAB (SEE SCANNED REPORT) LDL (DIRECT MEASURE)-OUTSIDE LAB OUTSIDE LAB (SEE SCANNED REPORT) HEMOGLOBIN, [id number] LAB OUTSIDE LAB (SEE SCANNED REPORT) PHOSPHORUS-OUTSIDE LAB OUTSIDE LAB (SEE SCANNED REPORT) PTH-OUTSIDE LAB OUTSIDE LAB (SEE SCANNED REPORT) MICROALBUMIN RATIO-OUTSIDE LAB OUTSIDE LAB (SEE SCANNED REPORT) PROTEIN, UA-OUTSIDE LAB OUTSIDE LAB (SEE SCANNED REPORT) HEMOGLOBIN-OUTSIDE LAB OUTSIDE LAB (SEE SCANNED REPORT) CHEMISTRY COMMENT-OUTSIDE LAB Comment:SEE SCAN: INPT, [facility]: BMP, MG, LIPID PANEL OUTSIDE LAB (SEE SCANNED REPORT) Specimen Narrative Performed At OUTSIDE LAB (SEE SCANNED REPORT) * CHEMISTRY-OUTSIDE (09/18/2020) CREATININE-OUTSIDE LAB OUTSIDE LAB (SEE SCANNED REPORT) EGFR-OUTSIDE LAB OUTSIDE LAB (SEE SCANNED REPORT) POTASSIUM-OUTSIDE LAB OUTSIDE LAB (SEE SCANNED REPORT) GLUCOSE-OUTSIDE LAB OUTSIDE LAB (SEE SCANNED REPORT) HOURS FASTING OUTSIDE LAB (S EE SCANNED REPORT) TRIGLYCERIDES-OUTSID E LAB OUTSIDE LAB (SEE SCANNED REPORT) CHOLESTEROL-OUTSIDE LAB OUTSIDE LAB (SEE SCANNED REPORT) HDL-OUTSIDE LAB OUTSIDE LAB (SEE SCANNED REPORT) CHOL/HDL RATIO-OUTSIDE LAB OUTSIDE LAB (SEE SCANNED REPORT) LDL (CALCULATED)-OUTSIDE LAB OUTSIDE LAB (SEE SCANNED REPORT) LDL (DIRECT MEASURE)-OUTSIDE LAB OUTSIDE LAB (SEE SCANNED REPORT) HEMOGLOBIN, [id number] LAB OUTSIDE LAB (SEE SCANNED REPORT) PHOSPHORUS-OUTSIDE LAB OUTSIDE LAB (SEE SCANNED REPORT) PTH-OUTSIDE LAB OUTSIDE LAB (SEE SCANNED REPORT) MICROALBUMIN RATIO-OUTSIDE LAB OUTSIDE LAB (SEE SCANNED REPORT) PROTEIN, UA-OUTSIDE LAB TRACE(A) NEGATIVE OUTSIDE LAB (SEE SCANNED REPORT) HEMOGLOBIN-OUTSIDE LAB 14.1 12.0 - 16.0 G/DL OUTSIDE LAB (SEE SCANNED REPORT) CHEMISTRY COMMENT-OUTSIDE LAB Comment:SEE SCAN: INPT, [facility]: CBCD, PT INR, PTT, UA, URINE CULTURE OUTSIDE LAB (SEE SCANNED REPORT) Specimen Narrative Performed At OUTSIDE LAB (SEE SCANNED REPORT) * COVID-19 (09/18/2020) [id number] LAB NEGATIVE NEGATIVE OUTSIDE LAB (SEE SCANNED REPORT) Specimen Narrative Performed At OUTSIDE LAB (SEE SCANNED REPORT) documented in this encounter Advance Directives Documents on File Type Date Recorded Patient Movement Assembly Final Inspector Expl 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
--- OUTSIDE RECORDS SUMMARY | 2023-06-07 08:03 | External Medical Summary | Summary of Care ---
Author Name Unknown Organization [place] [address] Care Team Providers Care Ticket Dispenser Changer Name Role Phone Yariel Cardoza MD Primary Care Provide r Encounter Details Date Type Department Care Team Description 09/20/2020 Scan Encounter Unspecified Department <No scans attached> [...] Take 0.4 mg by mouth daily. Per [facility] 0 06/09/2019 Active ondansetron (ZOFRAN) 4 MG Tablet Take 4 mg by mouth every 6 hours as needed for Nausea. Per [facility] 0 06/09/2019 Active Sennosides (SENNA) 8.6 [...] other day, Reported on 05/08/2020 nystatin (NYSTOP) [id number] UNIT/GM powderIndications:C andidal skin infection Apply topically [...] [address] [facility] [place] [address] [phone] 09/28/2020 Office Visit Internal Medicine Jade Castillo MD [address] [place] [address] [place] [address] [phone] 10/03/2020 Home Visit [facility] Marybeth Tillman CRNP [address] [facility] [place] [address] [phone] 12/22/2020 Office Visit Internal Medicine Jade Castillo MD [address] [place] [address] [place] [address] [phone] Health Maintenance Due Date Last Done Comments Zoster Vaccines (1 of 2) 1993 *ADVANCE DIRECTIVE NOT ON FILE 12/23/2015 *DEPRESSION SCREENING,ANNUAL FOR PTS 12 AND OVER 08/14/2020 COLONOSCOPY-EVERY 3 YRS AGES 18-100 03/26/2021 03/26/2018, 03/08/2015 Dexa Scan 08/17/2022 08/17/2015 DIABETES SCREEN EVERY 3 YRS-AGE 45 AND ABOVE 05/06/2023 09/22/2020, 05/06/2020, 08/18/2019, Additional history exists DTaP,Tdap,and Td [...] Documents on File Type Date Recorded 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
--- OUTSIDE RECORDS SUMMARY | 2023-06-07 08:03 | External Medical Summary | Summary of Care ---
Author Name Unknown Organization [place] [address] Care Team Providers Care Mine Safety Director Name Role Phone Yariel Cardoza MD Primary Care Provide r Encounter Details Date Type Department Care Team Description 09/21/2020 Result Scan Neurology [facility] [address] [place] [address] Ashley Birmingham PA-C [address] [place] [address] <No scans attached> Allergies Active Allergy Reactions Severity Noted Date Comments Adhesive Tape 06/29/2003 Sensitive to Naproxen Hives 05/28/2015 Ivp Dye Hives 08/20/2000 Latex Other (Please comment) 01/05/2015 Contact rash Ibuprofen Rash 01/05/2015 documented as of this encounter (statuses as of 09/22/2020) Medications Medication Sig Dispensed Refills Start Date [...] other day, Reported on 05/08/2020 nystatin (NYSTOP) [id number] UNIT/GM powderIndications:C andidal skin infection Apply topically [...] as of this encounter (statuses as of 09/22/2020) Active Problems Problem Noted Date Moderate episode [...] as of this encounter (statuses as of 09/22/2020) Resolved Problems Problem Noted Date Resolved Date [...] as of this encounter (statuses as of 09/22/2020) Immunizations Name Administration Dates Next Due Pneumococcal [...] Office Visit Internal Medicine Jade Castillo MD [address] [place] [address] [place] [address] Health Maintenance Due Date [...] Procedure Name Priority Date/Time Associated Diagnosis Comments ECHOCARDIOLOGY SCANNED RESULT 09/21/2020 documented in this encounter Results * ECHOCARDIOLOGY SCANNED RESULT (09/21/2020) Specimen Narrative Performed At documented in this encounter Advance Directives Documents on File Type Date Recorded Patient Behavioral Specialist Expl 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
--- OUTSIDE RECORDS SUMMARY | 2023-06-07 08:03 | External Medical Summary | Summary of Care ---
Author Name Unknown Organization [place] [address] Care Team Providers Care Rehabilitation Services Coordinator Name Role Phone Yariel Cardoza MD Primary Care Provide r Encounter Details Date Type Department Care Team Description 09/19/2020 Result Scan Unspecified Department <No scans attached> [...] Take 0.4 mg by mouth daily. Per [facility] 0 06/09/2019 Active ondansetron (ZOFRAN) 4 MG Tablet Take 4 mg by mouth every 6 hours as needed for Nausea. Per [facility] 0 06/09/2019 Active [...] other day, Reported on 05/08/2020 nystatin (NYSTOP) 313654 UNIT/GM powderIndications:C andidal skin infection Apply topically [...] [facility] Corrina Layne RN 132 [facility] [place] [address] [phone] 09/28/2020 Office Visit Internal Medicine Jade Castillo MD [address] [place] [address] [place] [address] [phone] 10/03/2020 Home Visit [facility] Marybeth Tillman CRNP [address] [facility] [place] [address] [phone] 12/22/2020 Office Visit Internal Medicine Jade Castillo MD [address] [place] [address] [place] [address] [phone] Health Maintenance Due Date Last Done Comments [...] Date/Time Associated Diagnosis Comments RADIOLOGY SCANNED RESULT 09/19/2020 RADIOLOGY SCANNED RESULT 09/19/2020 RADIOLOGY SCANNED RESULT 09/19/2020 EKG SCANNED RESULT 09/18/2020 RADIOLOGY SCANNED RESULT 09/18/2020 RADIOLOGY SCANNED RESULT 09/18/2020 documented in this encounter Results * RADIOLOGY SCANNED RESULT (09/19/2020) Specimen Narrative Performed At * RADIOLOGY SCANNED RESULT (09/19/2020) Specimen Narrative Performed At * RADIOLOGY SCANNED RESULT (09/19/2020) Specimen Narrative Performed At * RADIOLOGY SCANNED RESULT (09/18/2020) Specimen Narrative Performed At * RADIOLOGY SCANNED RESULT (09/18/2020) Specimen Narrative Performed At * EKG SCANNED RESULT (09/18/2020) Specimen Narrative Performed At documented in this encounter Advance Directives Documents on File Type Date Recorded Patient Loss Control Technician Expl 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
--- OUTSIDE RECORDS SUMMARY | 2023-06-07 08:04 | External Medical Summary | Summary of Care ---
Author Name Unknown Organization [place] [address] Care Team Providers Care Piccolo Mechanic Name Role Phone Leanne Cardoza MD Primary Care Provide r Reason for Visit * Reason Comments eRx-Medication Refill Encounter Details Date Type Department Care Team Description 09/15/2020 Refill [facility], [facility] 132 [facility] [place] [id number] Leanne Cardoza MD [address] [place] [address] [place] [id number] Irritable bowel syndrome with both constipation and diarrhea; Moderate episode of recurrent major depressive disorder (HCC) Allergies Active Allergy Reactions Severity Noted Date Comments Adhesive Tape 06/29/2003 Sensitive to Naproxen Hives 05/28/2015 Ivp Dye Hives 08/20/2000 Latex Other (Please comment) 01/05/2015 Contact rash Ibuprofen Rash 01/05/2015 documented as of this encounter (statuses as of 09/16/2020) Medications Medication Sig Dispensed Refills Start Date [...] mg by mouth daily. Per [facility] 0 06/09/2019 Active ondansetron (ZOFRAN) 4 MG Tablet Take 4 mg by mouth every 6 hours as needed for Nausea. Per [facility] 0 06/09/2019 Active Sennosides (SENNA) 8.6 [...] 3 12/05/2019 Active atorvaSTATin (LIPITOR) 20 MG TabletIndications :Dyslipidemia, goal LDL below 100 TAKE 1 TABLET BY MOUTH EVERY DAY 90 Tab 2 12/26/2019 Active Additional Information Patient taking differently: 20 mg, Every other day, Reported on 05/08/2020 nystatin (NYSTOP) 787271 UNIT/GM powderIndications :Candidal skin infection Apply topically [...] 3 04/30/2020 Active fluconazole (DIFLUCAN) 150 MG TabletIndications :Monilial intertrigo 1 tab weekly x 4 weeks 4 Tab 0 05/08/2020 Active omeprazole (PRILOSEC) 20 MG CPDRIndications:G astroesophageal reflux disease without esophagitis Take 2 Caps by mouth daily. 180 Cap 1 06/03/2020 Active predniSONE 10 MG Oral Tablet (DELTASONE)Indica tions:Herpes zoster without complication Take 5 tabs for 2 days, 4 tabs for 2 days, 3 tabs for 2 days, 2 tabs for 2 days 1 tab for 2 days 30 Tab 0 06/26/2020 Active hydroCHLOROthiazi de 25 MG Oral Tablet [...] EVERY DAY 90 Tab 1 09/16/2020 Active amitriptyline (ELAVIL) 25 MG TabletIndications :Irritable bowel syndrome with both constipation and diarrhea,Moderate episode of recurrent major depressive disorder (HCC) TAKE 1 TABLET BY MOUTH EVERYDAY AT BEDTIME 90 Tab 3 12/07/2019 09/16/20 20 Discontinued sertraline (ZOLOFT) 50 MG TabletIndications :Moderate episode of recurrent major depressive disorder (HCC) Take 1 Tab by mouth daily. 30 Tab 5 03/03/2020 09/16/20 20 Discontinued documented as of this encounter (statuses as of 09/16/2020) Active Problems Problem Noted Date Moderate episode [...] as of this encounter (statuses as of 09/16/2020) Resolved Problems Problem Noted Date Resolved Date [...] as of this encounter (statuses as of 09/16/2020) Immunizations Name Administration Dates Next Due Pneumococcal [...] Telephone Encounter - Leanne Cardoza MD - 09/16/2020 12:30 PM EST Signed Prescriptions: Disp Refills Amitriptyline HCl 25 MG Oral Tablet (ELAVI*90 Tab 3 Sig: TAKE 1 TABLET BY MOUTH EVERYDAY AT BEDTIME Authorizing Provider: LEANNE CARDOZA Sertraline HCl 50 MG Oral Tablet (ZOLOFT) 90 Tab 1 Sig: TAKE 1 TABLET BY MOUTH EVERY DAY Authorizing Provider: LEANNE CARDOZA * Telephone Encounter - Pratima Bermudez [facility] - 09/16/2020 12:12 PM EST Pending Prescriptions: Disp Refills Amitriptyline HCl 25 MG Oral Tablet [Pharm*90 Tab 3 Sig: TAKE 1 TABLET BY MOUTH EVERYDAY AT BEDTIME Sertraline HCl 50 MG Oral Tablet [Pharmacy*90 Tab 1 Sig: TAKE 1 TABLET BY MOUTH EVERY DAY * Telephone Encounter - Pratima Bermudez [facility] - 09/16/2020 12:10 PM EST PCP please disregard. Rerouted Thank you, Francy KumarD Staff Pharmacist Refill Call Center 09/16/2020, 12:10 PM * Telephone Encounter - Pratima Bermudez [facility] - 09/16/2020 12:10 PM EST Pending Prescriptions: Disp Refills Amitriptyline HCl 25 MG Oral Tablet [Pharm*90 Tab 3 Sig: TAKE 1 TABLET BY MOUTH EVERYDAY AT BEDTIME Sertraline HCl 50 MG Oral Tablet [Pharmacy*90 Tab 1 Sig: TAKE 1 TABLET BY MOUTH EVERY DAY * Telephone Encounter - Pratima Bermudez [facility] - 09/16/2020 12:09 PM EST Pending Prescriptions: Disp Refills Amitriptyline HCl 25 MG Oral Tablet [Pharm*90 Tab 3 Sig: TAKE 1 TABLET BY MOUTH EVERYDAY AT BEDTIME Sertraline HCl 50 MG Oral Tablet [Pharmacy*90 Tab 1 Sig: TAKE 1 TABLET BY MOUTH EVERY DAY Last Office/Telemedicine Visit: No Previous Office/Telemedicine Visits Next Office Visit: No Future Appointments If no future appointments scheduled, and last appointment is greater than a year ago, please schedule patient for a follow-up appointment Last date the medication was ordered: 12/07/19, 03/03/20 Pharmacy: [id number] Is this request for a controlled substance?No Urine Drug Screen:No results found for this or any previous visit. Patient Phone Numbers Labs: Lab Results Component Value Date/Time CREAT 0.9 05/06/2020 10:15 AM POTASSIUM 4.1 05/06/2020 10:15 AM TSH 0.69 04/17/2017 10:53 AM LDLCALC 51 07/28/2018 02:30 PM ALT 22 05/06/2020 10:15 AM HGBA1C 5.7 03/19/2017 08:05 AM * Telephone Encounter - Alexis Perez PHARM Tech - 09/16/2020 11:14 AM EST Pending Prescriptions: Disp Refills Amitriptyline HCl 25 MG Oral Tablet (ELAV*90 Tab 3 Sig: TAKE 1 TABLET BY MOUTH EVERYDAY AT BEDTIME Sertraline HCl 50 MG Oral Tablet (ZOLOFT)*90 Tab 1 Sig: TAKE 1 TABLET BY MOUTH EVERY DAY Last Office/Telemedicine Visit: 06/03/2020 Next Office Visit:12/22/2020 If no future appointments scheduled, and last appointment is greater than a year ago, please schedule patient for a follow-up appointment Last date the medication was ordered: 03/03/2020 Pharmacy: [id number] Is this request for a controlled substance?No Urine Drug Screen:No results found for this or any previous visit. Patient Phone Numbers Labs: Lab Results Component Value Date/Time CREAT 0.9 05/06/2020 10:15 AM POTASSIUM 4.1 05/06/2020 10:15 AM TSH 0.69 04/17/2017 10:53 AM LDLCALC 51 07/28/2018 02:30 PM ALT 22 05/06/2020 10:15 AM HGBA1C 5.7 03/19/2017 08:05 AM documented in this encounter Plan of Treatment Upcoming Encounters Date Type Specialty Care Team Description 12/22/2020 Office Visit Internal Medicine Jade Castillo MD [address] [place] [address] [place] [address] Health Maintenance Due Date [...] on File Type Date Recorded Patient International Specialist Expl 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
--- OUTSIDE RECORDS SUMMARY | 2023-06-07 08:04 | External Medical Summary | Summary of Care ---
Author Name Unknown Organization [place] [address] Care Team Providers Care Web Operations Administrator Name Role Phone Leanne Cardoza MD Primary Care Provide r Reason for Visit * Reason Comments eRx-Medication Refill Encounter Details Date Type Department Care Team Description 09/09/2020 Refill Internal Medicine [address] [place] [address] Leanne Cardoza MD [address] [place] [address] [place] [address] Allergies Active Allergy Reactions Severity Noted Date Comments Adhesive Tape 06/29/2003 Sensitive to Naproxen Hives 05/28/2015 Ivp Dye Hives 08/20/2000 Latex Other (Please comment) 01/05/2015 Contact rash Ibuprofen Rash 01/05/2015 documented as of this encounter (statuses as of 09/10/2020) Medications Medication Sig Dispensed Refills Start Date [...] 0.4 mg by mouth daily. Per [facility] 0 06/09/2019 Active ondansetron (ZOFRAN) 4 MG Tablet Take 4 mg by mouth every 6 hours as needed for Nausea. Per [facility] 0 06/09/2019 Active Sennosides (SENNA) 8.6 MG CAPS Take 1 Cap by mouth as needed for Constipation (1 cap up to two times daily for constipation). 0 06/12/2019 Active HYDROcodone-aceta minophen 5-325 mg per tab 5-325 MG per tablet 0 07/14/2019 Active atenolol (TENORMIN) 25 MG Tablet TAKE 1 TABLET BY MOUTH EVERY DAY 90 Tab 3 12/05/2019 Active amitriptyline (ELAVIL) 25 MG TabletIndications :Irritable bowel syndrome with both constipation and diarrhea,Moderate episode of recurrent major depressive disorder (HCC) TAKE 1 TABLET BY MOUTH EVERYDAY AT BEDTIME 90 Tab 3 12/07/2019 Active atorvaSTATin (LIPITOR) 20 MG TabletIndications :Dyslipidemia, goal LDL below 100 TAKE 1 TABLET BY MOUTH EVERY DAY 90 Tab 2 12/26/2019 Active Additional Information Patient taking differently: 20 mg, Every other day, Reported on 05/08/2020 nystatin (NYSTOP) [id number] UNIT/GM powderIndications :Candidal skin infection Apply topically to affected area 3 times a day. Apply to the affected area 45 g 1 02/26/2020 Active zoster vac recomb adjuvanted (SHINGRIX) 50 MCG/0.5ML injectionIndicati ons:Need for vaccination for zoster Inject 0.5 mL into a large muscle now and repeat dose in 60 to 180 days 1 Each 1 03/03/2020 Active sertraline (ZOLOFT) 50 MG TabletIndications :Moderate episode of recurrent major depressive disorder (HCC) Take 1 Tab by mouth daily. 30 Tab 5 03/03/2020 Active Probiotic Product ([facility] ADV PROBIOTIC [...] EVERY DAY 90 Tab 2 09/10/2020 Active potassium chloride ER 10 MEQ TBCR TAKE 1 TABLET BY MOUTH EVERY DAY 90 Tab 3 09/02/2019 09/10/20 20 Discontinued documented as of this encounter (statuses as of 09/10/2020) Active Problems Problem Noted Date Moderate episode [...] as of this encounter (statuses as of 09/10/2020) Resolved Problems Problem Noted Date Resolved Date [...] as of this encounter (statuses as of 09/10/2020) Immunizations Name Administration Dates Next Due Pneumococcal [...] Notes * Telephone Encounter - Jame Tavarez [facility] - 09/10/2020 1:17 PM EST Signed Prescriptions: Disp Refills Potassium Chloride ER 10 MEQ Oral Tablet E*90 Tab 2 Sig: TAKE 1 TABLET BY MOUTH EVERY DAYAuthorizing Provider: LEANNE CARDOZA User: JAME TAVAREZ-- * Telephone Encounter - Jame Tavarez RPh - 09/10/2020 1:17 PM EST Pending Prescriptions: Disp Refills Potassium Chloride ER 10 MEQ Oral Tablet *90 Tab 3 Sig: TAKE 1 TABLET BY MOUTH EVERY DAY Last Office/Telemedicine Visit: 06/03/2020 Next Office Visit: 12/22/2020 Scheduled Provider(s): Jade Castillo MD If no future appointments scheduled, and last appointment is greater than a year ago, please schedule patient for a follow-up appointment Last date the medication was ordered: Pharmacy: [id number] Is this request for a controlled [...] Encounters Date Type Specialty Care Team Description 09/10/2020 Scheduled Telephone [facility], Nurse [address] [place] [address] [phone] 09/11/2020 Scheduled Telephone [facility] [place], Nurse David Flores [address] [place] [address] [phone] 09/12/2020 Home Visit [facility] Corrina Layne RN [address] [place] [address] [phone] 12/22/2020 Office Visit Internal Medicine Jade Castillo MD [address] [place] [address] [place] [address] [phone] Health Maintenance Due Date Last Done Comments [...] Documents on File Type Date Recorded Patient Gi Technician Expl 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
--- OUTSIDE RECORDS SUMMARY | 2023-06-07 08:04 | External Medical Summary | Summary of Care ---
Author Name Unknown Organization [place] [address] Care Team Providers Care Production Support Consultant Name Role Phone Yariel Cardoza MD Primary Care Provide r Reason for Visit * Reason Comments [facility]: Maintenance Encounter Details Date Type Department Care Team Description 09/12/2020 Home Visit [facility], [facility] [address] [place] [address] Corrina Layne RN 132 [facility] [place] [address] [phone] Allergies Active Allergy Reactions Severity Noted Date Comments Adhesive Tape 06/29/2003 Sensitive to Naproxen Hives 05/28/2015 Ivp Dye Hives 08/20/2000 Latex Other (Please comment) 01/05/2015 Contact rash Ibuprofen Rash 01/05/2015 documented as of this encounter (statuses as of 09/14/2020) Medications Medication Sig Dispensed Refills Start Date [...] 3 12/05/2019 Active amitriptyline (ELAVIL) 25 MG TabletIndications:I rritable bowel syndrome with both constipation and diarrhea,Moderate episode of recurrent major depressive disorder (HCC) TAKE 1 TABLET BY MOUTH EVERYDAY AT BEDTIME 90 Tab 3 12/07/2019 Active atorvaSTATin (LIPITOR) 20 MG TabletIndications:D yslipidemia, goal LDL below 100 TAKE 1 TABLET BY MOUTH EVERY DAY 90 Tab 2 12/26/2019 Active Additional Information Patient taking differently: 20 mg, Every other day, Reported on 05/08/2020 nystatin (NYSTOP) [id number] UNIT/GM powderIndications:C andidal skin infection Apply topically to affected area 3 times a day. Apply to the affected area 45 g 1 02/26/2020 Active zoster vac recomb adjuvanted (SHINGRIX) 50 MCG/0.5ML injectionIndication s:Need for vaccination for zoster Inject 0.5 mL into a large muscle now and repeat dose in 60 to 180 days 1 Each 1 03/03/2020 Active sertraline (ZOLOFT) 50 MG TabletIndications:M oderate episode of recurrent major depressive disorder (HCC) [...] EVERY DAY 90 Tab 2 09/10/2020 Active documented as of this encounter (statuses as of 09/14/2020) Active Problems Problem Noted Date Moderate episode [...] as of this encounter (statuses as of 09/14/2020) Resolved Problems Problem Noted Date Resolved Date [...] as of this encounter (statuses as of 09/14/2020) Immunizations Name Administration Dates Next Due Pneumococcal [...] Sign Reading Time Taken Comments Blood Pressure 120/60 09/14/2020 8:55 AM EST Pulse 80 09/14/2020 8:55 AM EST Temperature 36.8 C (98.2 F) 09/14/2020 8:55 AM ES T Respiratory Rate 18 09/14/2020 8:55 AM EST Oxygen Saturation 97% 09/14/2020 8:55 AM EST 2 LPM Inhaled Oxygen Concentration - - Weight - - Height - - Body Mass Index - - documented in this encounter Progress Notes * Corrina Layne RN - 09/12/2020 3:30 PM EST [facility] Machine Setter Visit Date: 09/12/2020 Time: 4:52 PM Name: Jayla Hayes : 1945 Current Concerns: Patient being seen for return visit related to COVID19, COPD. Pt now off 14 day quarantine. Feels that she is improving daily. Lungs clear but slightly dim in bases. Pulse ox has been >95% on 2Lpm which she is wearing continuously for now. Much less mucous production and feels that she is able to cough/ clear secretions. Physical Exam: BP 120/60 (BP Site: Left Arm, BP Position: Sitting, BP Cuff Size: Regular) | Pulse 80 | Temp 36.8 C (98.2 F) (Tympanic) | Resp 18 | SpO2 97% Comment: 2 LPM Pain 0 Physical Exam HENT: Mouth/Throat: Mouth: [...] Skin: General: Skin is warm and dry. Psychiatric: Mood and Affect: Mood normal. Behavior: Behavior normal. Thought Content: Thought content normal. Judgment: Judgment normal. Problems/Symptoms: Review of Systems Constitutional: Negative. HENT: Positive for congestion (mild sinus congestion, but improved). Eyes: Negative. Gastrointestinal: Negative for abdominal distention, abdominal pain, blood in stool, constipation, diarrhea, nausea and vomiting. Endocrine: Negative. Genitourinary: Negative for difficulty urinating and dysuria. Musculoskeletal: Positive for arthralgias. Allergic/Immunologic: Negative. Neurological: Negative. Medication Reconciliation: (See medication list) Does patient take medications as ordered: Yes Patient Well Being: PHQ2/9: @[id number]@ Mood stable. Denies falls Advanced Care Planning: Living Will. Patient's Goals of Care: to stay out of the hospital 2. [...] -Avoid triggers -Clean inhalers once a week Stay hydrated. Continue to wear oxygen. Use incentive spirometer q 1 hour as instructed. Continue inhalers, nebs as ordered. Reinforced safety education and fall prevention. and Reinforced medication regimen. Timing., Dosing. and Purspose. Treatment/Plan: Continue medications as ordered Continue using neb/inhalers as ordered Incentive spirometer q 1 hour Continue using oxygen at 2L continuously to keep sats >90% RNCM to return in 2 weeks or sooner if needed Home Interventions Provided: Reinforced current Plan of Care, including self-management and medication regimen Patient's 'Red Flags': increased sob, increased cough/wheezing not relived by nebs, fever Patient Needs to Remember: Call [facility] at with any new or worsening health concerns or problems, red flag symptoms. Referrals Needed: n/a Follow Up: Patient encouraged to call the intake phone number for all urgent but not emergent issues. Is the patient new to [facility] within the last 30 days? No, Assess appropriateness for upcoming telehealth visits. Cancel telehealth visits & schedule home visit with care marine steamfitter(s)as indicated. Provider is in agreement with Plan of Care: Yes Scheduled to follow up with patient in 2 weeks. Corrina Layne RN 09/12/2020 4:52 PM documented in this encounter Plan of Treatment Upcoming Encounters Date Type Specialty Care Team Description 12/22/2020 Office Visit Internal Medicine Jade Castillo MD [address] [place] [address] [place] [address] Health Maintenance Due Date [...] on File Type Date Recorded Patient Medical Legal Investigator Expl 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
--- OUTSIDE RECORDS SUMMARY | 2023-06-07 08:04 | External Medical Summary | Summary of Care ---
Author Name Unknown Organization [place] [address] Care Team Providers Care Diesel Engine Pipe Fitter Name Role Phone Yariel Cardoza MD Primary Care Provide r Reason for Visit * Reason Onset Date Comments [facility]: Maintenance 09/11/2020 P C f/u 48 HR Encounter Details Date Type Department Care Team Description 09/11/2020 Scheduled Telephone [facility], [facility] 132 [facility] [place] [address] [facility], Nurse [facility] [place] [address] [phone] Allergies Active Allergy Reactions Severity Noted Date Comments Adhesive Tape 06/29/2003 Sensitive to Naproxen Hives 05/28/2015 Ivp Dye Hives 08/20/2000 Latex Other (Please comment) 01/05/2015 Contact rash Ibuprofen Rash 01/05/2015 documented as of this encounter (statuses as of 09/11/2020) Medications Medication Sig Dispensed Refills Start Date [...] mg by mouth daily. Per [facility] 0 06/09/2019 Active ondansetron (ZOFRAN) 4 MG Tablet Take 4 mg by mouth every 6 hours as needed for Nausea. Per [facility] 0 06/09/2019 Active Sennosides (SENNA) 8.6 [...] other day, Reported on 05/08/2020 nystatin (NYSTOP) [id number] UNIT/GM powderIndications:C andidal skin infection Apply topically [...] as of this encounter (statuses as of 09/11/2020) Active Problems Problem Noted Date Moderate episode [...] as of this encounter (statuses as of 09/11/2020) Resolved Problems Problem Noted Date Resolved Date [...] as of this encounter (statuses as of 09/11/2020) Immunizations Name Administration Dates Next Due Pneumococcal [...] encounter Miscellaneous Notes * Telephone Encounter - Carina Lang RN - 09/11/2020 1:26 PM EST Chart reviewed Called Jayla Hayes Unable to reach LVM Explained/reinforced role of geriatric case manager. Encouraged to call with any issues or concerns. Gave direct phone number and contact information. documented in this encounter Plan of Treatment Upcoming Encounters Date Type Specialty Care Team Description 09/12/2020 Home Visit [facility] Corrina Layne RN 132 [facility] [place] [address] [phone] 12/22/2020 Office Visit Internal Medicine Jade Castillo MD [address] [place] [address] [place] [address] [phone] Health Maintenance Due Date Last Done Comments [...] Documents on File Type Date Recorded Patient Hr Associate Expl 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
--- OUTSIDE RECORDS SUMMARY | 2023-06-07 08:04 | External Medical Summary | Summary of Care ---
Author Name Unknown Organization [place] [address] Care Team Providers Care Garage Supervisor Name Role Phone Yariel Cardoza MD Primary Care Provide r Reason for Visit * Reason Onset Date Comments Acute Problem Follow Up 09/09/2020 Encounter Details Date Type Department Care Team Description 09/09/2020 Telephone [facility], [facility] [address] [facility] [place] [address] [facility] [address] [facility] [place] [address] [phone] Acute Problem Follow Up Allergies Active Allergy Reactions Severity Noted Date Comments Adhesive Tape 06/29/2003 Sensitive to Naproxen Hives 05/28/2015 Ivp Dye Hives 08/20/2000 Latex Other (Please comment) 01/05/2015 Contact rash Ibuprofen Rash 01/05/2015 documented as of this encounter (statuses as of 09/09/2020) Medications Medication Sig Dispensed Refills Start Date [...] Take 0.4 mg by mouth daily. Per [facility] ER 0 06/09/2019 Active ondansetron (ZOFRAN) 4 MG Tablet Take 4 mg by mouth every 6 hours as needed for Nausea. Per [facility] ER 0 06/09/2019 Active Sennosides (SENNA) 8.6 MG CAPS Take 1 Cap by mouth as needed for Constipation (1 cap up to two times daily for constipation). 0 06/12/2019 Active HYDROcodone-acetami nophen 5-325 mg per tab 5-325 MG per tablet 0 07/14/2019 Active potassium chloride ER 10 MEQ TBCR TAKE 1 TABLET BY MOUTH EVERY DAY 90 Tab 3 09/02/2019 Active atenolol (TENORMIN) 25 MG Tablet TAKE [...] other day, Reported on 05/08/2020 nystatin (NYSTOP) 901272 UNIT/GM powderIndications:C andidal skin infection Apply topically [...] EVERY DAY 90 Tab 2 07/24/2020 Active documented as of this encounter (statuses as of 09/09/2020) Active Problems Problem Noted Date Moderate episode [...] as of this encounter (statuses as of 09/09/2020) Resolved Problems Problem Noted Date Resolved Date [...] as of this encounter (statuses as of 09/09/2020) Immunizations Name Administration Dates Next Due Pneumococcal [...] Miscellaneous Notes * Telephone Encounter - Corrina Ko CRNP - 09/09/2020 12:25 PM EST Reviewed, agree with same day visit. Flutter valve order placed. Please fax to [email or web address]. Will hold on further prescriptions until SELENE gamez. SAMIR Ojeda [facility] [phone] * Telephone Encounter - Gucci MalkaSELENE ram - 09/09/2020 9:45 AM EST [facility] consolidation accountant Acute Call Date: 09/09/2020 Time: 9:46 AM Name: Claudette Hayes : 1945 Caller: Claudette Relationship to self No chief complaint on file. 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 Claudette Hayes is a 75 year old old female that report she is not feeling that bad today butis still trying to manage symptoms. Patient sounded winded as she was walking around. Denies SOB. Patient wasn't wearing O2 pulse ox was 83%. Patient advised to put on O2 at 2L and wear it cont. For now until she clears up . She sat took some deep breaths POX increased to 92%. No pain, temp 98.2, +[place]ARK, + cough w/ yellow sputum. Eating and drinking ok as per patient. Voiding WNL. No BM for 2 days patient advised to take her senna. Nursing Assessment: Patient's chief complaint for this call: Other, describe thick mucous Symptom Assessment Onset of Symptoms: Other: greater than 3 days What makes symptom worse: n/a What makes symptom better: n/a What has the patient tried to treat the symptom: mucinex plus sinus Fall within a week of symptom onset: No Pain Denies pain Baseline Assessment Able to performing ADLs at baseline (walking, daily tasks, etc.): Yes Chief Complaint is related to a chronic condition: Unknown Patient prescribed oxygen? Yes, 2 LPML/min, not using as prescribed N/A Patient has been ordered DME equipment (assistive devices, respiratory equipment, etc.): Yes Describe DME devices: HHN Patient is using DME device as directed: No, N/A Medication Reconciliation: Received flu shot this season: Yes Taking medication as ordered: Unknown Medications ordered/taking to treat reason for call: Yes, PRN medication(s) mucinex Heart failure symptoms: No COPD exacerbation symptoms: Unknown Reinforcement Education: Take all meds as prescribed Cont. W/ mucinex Saline nasal spray duonebs as prescribed Treatment/Plan: (need to report) Level of call: Acute Appointment scheduled for same day: No Provider Name: Sandrine Layne to see patient on 09/12/20 Treatment plan until appointment: bone char kiln tender requesting rescue kit for severe COPD and flutter valve call back instructions provided to patient. Malka Duckworth RN, BSN [facility] cyber intelligence analystIce Cream Vendor documented in this encounter Plan of Treatment Upcoming Encounters Date Type Specialty Care Team Description 09/10/2020 Scheduled Telephone [facility], Nurse [place] [address] [address] [place] [address] [phone] 09/11/2020 Scheduled Telephone [facility], [place] [address] [address] [place] [address] [phone] 09/12/2020 Home Visit [facility] Corrina Layne RN 132 [facility] [place] [address] [phone] 12/22/2020 Office Visit Internal Medicine Jade Castillo MD [address] [place] [address] [place] [id number] Health Maintenance Due Date Last Done Comments [...] Documents on File Type Date Recorded Patient Preflight Mechanic Expl 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
--- OUTSIDE RECORDS SUMMARY | 2023-06-07 08:04 | External Medical Summary | Summary of Care ---
Author Name Unknown Organization [place] [address] Care Team Providers Care Sack Repairer Name Role Phone Yariel Cardoza MD Primary Care Provide r Reason for Visit * Reason Onset Date Comments [facility]: Acute 09/10/2020 Encounter Details Date Type Department Care Team Description 09/10/2020 Scheduled Telephone [facility], [facility] 132 [facility] [place] [address] [facility], Nurse [facility] [address] [facility] [place] [address] [phone] Allergies Active Allergy Reactions Severity Noted Date [...] Take 0.4 mg by mouth daily. Per [facility] ER 0 06/09/2019 Active ondansetron (ZOFRAN) 4 MG Tablet Take 4 mg by mouth every 6 hours as needed for Nausea. Per [facility] ER 0 06/09/2019 Active Sennosides (SENNA) 8.6 [...] other day, Reported on 05/08/2020 nystatin (NYSTOP) [id number] UNIT/GM powderIndications:C andidal skin infection Apply topically [...] encounter Miscellaneous Notes * Telephone Encounter - Summer Roberts RN - 09/10/2020 2:36 PM EST PC to patient who answered phone. She reports she is feeling much better today. Mucous is beginning to break up yellow, white some slightly blood tinged. Has been using Flutter valve. Using Duonebs 4x day Wearing O2 continuously 90%-SPo2 on 2 lpm 72-HR Temp 97.6 PC f/u tomorrow RN visit on 09/12. Pt to call with any concerns that arise documented in this encounter Plan of Treatment Upcoming Encounters Date Type Specialty Care Team Description 09/11/2020 Scheduled Telephone [facility], Nurse [facility] [address] [place] [address] [phone] 09/12/2020 Home Visit [facility] [place] Corrina Layne RN [address] [place] [address] [phone] 12/22/2020 Office Visit Internal Medicine Jade Castillo MD [address] [place] [address] [place] [address] [phone] Health Maintenance Due Date Last Done Comments [...] Documents on File Type Date Recorded Patient Statistical Modeler Expl 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
--- OUTSIDE RECORDS SUMMARY | 2023-06-07 08:04 | External Medical Summary | Summary of Care ---
Author Name Unknown Organization [place] [address] Care Team Providers Care Social Media Analyst Name Role Phone Yariel Cardoza MD Primary Care Provide r Reason for Visit * Reason Onset Date Comments Acute Problem Follow Up 09/09/2020 Encounter Details Date Type Department Care Team Description 09/09/2020 Telephone [facility], [facility] 132 [facility] [place] [address] [employer], Nurse [facility] [address] [facility] [place] [address] [phone] Acute Problem Follow Up Allergies Active Allergy [...] Take 0.4 mg by mouth daily. Per [facility] ER 0 06/09/2019 Active ondansetron (ZOFRAN) 4 MG Tablet Take 4 mg by mouth every 6 hours as needed for Nausea. Per [facility] ER 0 06/09/2019 Active Sennosides [...] other day, Reported on 05/08/2020 nystatin (NYSTOP) [id number] UNIT/GM powderIndications:C andidal skin infection Apply topically [...] encounter Miscellaneous Notes * Telephone Encounter - Malka Duckworth RN - 09/09/2020 12:42 PM EST Flutter valve order fax[facility] fax number [phone]. Patient aware. Malka Duckworth RN, BSN [facility] international marketing specialistMassage Coordinator * Telephone Encounter - Corrina Ko CRNP - 09/09/2020 12:25 PM EST Reviewed, agree with same day visit. Flutter valve order placed. Please fax to [employer] [facility]. Will hold on further prescriptions until RN franco. SAMIR Ojeda [facility] [phone] * Telephone Encounter - Malka Duckworth RN - 09/09/2020 9:45 AM EST [facility] steam heating installer Acute Call Date: 09/09/2020 Time: 9:46 AM Name: Claudette Hayes : 1945 Caller: Claudette Relationship to self No chief complaint on file. HPI: flat lock operator called claudette to see how she was [...] respiratory equipment, etc.): Yes Describe DME devices: N Patient is using DME device as directed: No, N/A Medication Reconciliation: Received flu shot this season: Yes Taking medication as ordered: Unknown Medications ordered/taking to treat reason for call: Yes, PRN medication(s) mucinex Heart failure symptoms: No COPD exacerbation symptoms: Unknown Reinforcement Education: Take all meds as prescribed 02 Cont. W/ mucinex Saline nasal spray duonebs as prescribed Treatment/Plan: (need to report) Level of call: Acute Appointment scheduled for same day: No Provider Name: Sandrine Layne to see patient on 09/12/20 Treatment plan until appointment: flat lock operator requesting rescue kit for severe COPD and flutter valve call back instructions provided to patient. Malka Duckwroth RN, BSN [facility] international marketing specialistMassage Coordinator documented in this encounter Plan of Treatment Upcoming Encounters Date Type Specialty Care Team Description 09/10/2020 Scheduled Telephone [facility] [employer], Nurse [place] [address] [address] [place] [address] [phone] 09/11/2020 Scheduled Telephone [facility] [employer], Nurse [place] [address] [address] [place] [address] [phone] 09/12/2020 Home Visit [facility] Corrina Layne RN 132 [facility] [place] [address] [phone] 12/22/2020 Office Visit Internal Medicine Jade Castillo MD [address] [place] [address] [place] [phone] Health Maintenance Due Date Last Done Comments [...] File Type Date Recorded Patient It Technical Specialist Expl 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
--- OUTSIDE RECORDS SUMMARY | 2023-06-07 08:05 | External Medical Summary | Summary of Care ---
Author Name Unknown Organization [facility] Address [place] [address] Care Team Providers Care Sales Manager Name Role Phone Yariel Cardoza MD Primary Care Provide r Reason for Visit * Reason Onset Date Comments [facility]: Maintenance 09/06/2020 Encounter Details Date Type Department Care Team Description 09/06/2020 Scheduled Telephone [facility], [facility] [address] [place] [address] Coordinator, [facility] [address] [place] [address] [phone] Allergies Active Allergy Reactions Severity Noted Date Comments Adhesive Tape 06/29/2003 Sensitive to Naproxen Hives 05/28/2015 Ivp Dye Hives 08/20/2000 Latex Other (Please comment) 01/05/2015 Contact rash Ibuprofen Rash 01/05/2015 documented as of this encounter (statuses as of 09/06/2020) Medications Medication Sig Dispensed Refills Start Date [...] Take 0.4 mg by mouth daily. Per [facility] ER 0 06/09/2019 Active ondansetron (ZOFRAN) 4 MG Tablet Take 4 mg by mouth every 6 hours as needed for Nausea. Per [facility] 0 06/09/2019 Active Sennosides (SENNA) [...] other day, Reported on 05/08/2020 nystatin (NYSTOP) [id number] UNIT/GM powderIndications:C andidal skin infection Apply topically [...] as of this encounter (statuses as of 09/06/2020) Active Problems Problem Noted Date Moderate episode [...] as of this encounter (statuses as of 09/06/2020) Resolved Problems Problem Noted Date Resolved Date [...] as of this encounter (statuses as of 09/06/2020) Immunizations Name Administration Dates Next Due Pneumococcal [...] Telephone Encounter - Magda Arreola LPN - 09/06/2020 12:55 PM EST Current concerns: She is feeling good. Problems/Symptoms: Patients current temperature: She didn't check this morning. Checked during call: 97.8 Highest recorded temperature within the last 24 hours 97.58 Use of antipyretics? No Symptoms: Cough Cough description: Productive Color of Sputum: Yellow Consistency of Sputum: Thicker than usual (beyond baseline) Anticoagulation: Has the patient been started on anticoagulation due to COVID-19? No Treatment/Plan: Continue to isolate. Monitor symptoms. Call for any changes/worsenng of symptoms. Anticoagulation: N/A Test Results: Positive Your test for COVID-19 came back as positive, which means you are infected with the novel coronavirus. Here is what you need to do immediately: Isolate yourself in your home until: o You have had no fever for at least 24 hours without the use of medicine that reduces fevers AND o Other symptoms have improved (for example, when your cough or shortness of breath have improved)AND o At least 10 days have passed since your symptoms first appeared (or as otherwise directed by managing physician - i.e., patients with severe COVID disease or who are immunocompromised may be advised to allow 20 days to pass since onset of symptoms). ? If you live with others, isolate yourself to a single room away from them and avoid any contact during the quarantine time. ? Wash your hands frequently and cover your cough. ? If you were in close contact with any family members, roommates or friends in the 2 weeks before your cold/flu symptoms started, notify them that you tested positive for COVID-19. Tell them that ifthey have cold/flu symptoms, they should call [facility] COVID-19 hotline at [phone] and get tested for the virus. ? Treat your symptoms with paey-cii-kcswjht medications, such as Tylenol. ? If you develop new symptoms or your symptoms are worsening, call your Back Tender Paper Machine/[facility] Intake Team/PCP for advice. If you begin to experience a medical emergency, call 911 and advise them that you have tested positive for COVID-19 ? If you are a [employer] staff member or employee, when you receive your result, please call [employer] between 7 a.m. and 4 p.m. at [phone]. Notify them of your test results and for instructions on returning to work after your quarantine period. ? Your primary care provider will be notified of your results. Contact them for follow-up care. Has patient recovered (at least 10 days since symptoms began AND patient feeling well and without fever for at least 24 hours)? Unable to Determine Follow Up: Patient encouraged to call with all urgent but not emergent issues. Scheduled to follow up with patient in one day. documented in this encounter Plan of Treatment Upcoming Encounters Date Type Specialty Care Team Description 09/07/2020 Scheduled Telephone [facility], [facility] [address] [place] [address] [phone] 09/14/2020 Home Visit [facility] Corrina Layne RN [address] [place] [address] [phone] 12/22/2020 Office Visit Internal Medicine Jade Castillo MD [address] [place] [address] [place] [phone] Health Maintenance Due Date Last Done Comments Zoster Vaccines (1 of 2) 1993 *ADVANCE DIRECTIVE NOT ON FILE 12/23/2015 *O2 ASSESSMENT COMPLETED IN PAST YEAR FOR COPD 08/10/2020 *DEPRESSION SCREENING,ANNUAL FOR PTS 12 AND OVER [...] Documents on File Type Date Recorded Patient Filter Bed Placer Expl 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
--- OUTSIDE RECORDS SUMMARY | 2023-06-07 08:05 | External Medical Summary | Summary of Care ---
Author Name Unknown Organization [facility] Address [place] [address] Care Team Providers Care Gum Worker Name Role Phone Yariel Cardoza MD Primary Care Provide r Reason for Visit * Reason Onset Date Comments [facility]: Maintenance 09/05/2020 Encounter Details Date Type Department Care Team Description 09/05/2020 Scheduled Telephone [facility], [facility] [address] [place] [address] Coordinator, [facility] [address] [place] [address] [phone] Allergies Active Allergy Reactions Severity Noted Date Comments Adhesive Tape 06/29/2003 Sensitive to Naproxen Hives 05/28/2015 Ivp Dye Hives 08/20/2000 Latex Other (Please comment) 01/05/2015 Contact rash Ibuprofen Rash 01/05/2015 documented as of this encounter (statuses as of 09/05/2020) Medications Medication Sig Dispensed Refills Start Date [...] Take 0.4 mg by mouth daily. Per [facility] ER 0 06/09/2019 Active ondansetron (ZOFRAN) 4 MG Tablet Take 4 mg by mouth every 6 hours as needed for Nausea. Per [facility] ER 0 06/09/2019 Active [...] other day, Reported on 05/08/2020 nystatin (NYSTOP) [id number] UNIT/GM powderIndications:C andidal skin infection Apply topically [...] as of this encounter (statuses as of 09/05/2020) Active Problems Problem Noted Date Moderate episode [...] as of this encounter (statuses as of 09/05/2020) Resolved Problems Problem Noted Date Resolved Date [...] as of this encounter (statuses as of 09/05/2020) Immunizations Name Administration Dates Next Due Pneumococcal [...] encounter Miscellaneous Notes * Telephone Encounter - Colleen Juarez RN - 09/05/2020 1:54 PM EST Patient is returning call to [facility]. She reports she did go in the car with her son to the pharmacy but they were both masked and she did not get out of the car. Discussed the importance of maintaining isolation for the full length of time. She verbalizes understanding of same. She reports her temp was 97.2 this morning-she reports she did take 2 tylenol for a headache. PO2 was 89% on RA. She is using the oxygen at night but reports she does use it during the day if she gets SOB throughout the day. She reports she is coughing occasionally and is expectorating thick greyish, greenish or yellow mucus. She does use the nebulizer as needed. She reports her sense of taste and smell is good on some d ays but on other days it is not good. She reports that she generally feels good. She is aware to call [facility] with any questions or change in condition. * Telephone Encounter - Magda Arreola LPN - 09/05/2020 12:26 PM EST Left message for Jayla to return my call. A female answered the phone stating she road with her son to the pharmacy. Advised to make sure she is quarantining and not in public places. Provided call back number . documented in this encounter Plan of Treatment Upcoming Encounters Date Type Specialty Care Team Description 09/06/2020 Scheduled Telephone [facility], [address] [place] [address] [phone] 09/07/2020 Scheduled Telephone [facility], [facility] [address] [place] [address] [phone] 09/14/2020 Home Visit [facility] Corrina Layne RN [address] [place] [address] [phone] 12/22/2020 Office Visit Internal Medicine Jade Castillo MD [address] [place] [address] [place] [address] [phone] Health Maintenance Due Date Last Done Comments [...] Documents on File Type Date Recorded Patient Telephone Ad Taker Expl 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
--- OUTSIDE RECORDS SUMMARY | 2023-06-07 08:05 | External Medical Summary | Summary of Care ---
Author Name Unknown Organization [facility] Address [place] [address] Care Team Providers Care Transformation Specialist Name Role Phone Yariel Cardoza MD Primary Care Provide r Reason for Visit * Reason Onset Date Comments [facility]: Maintenance 09/07/2020 Encounter Details Date Type Department Care Team Description 09/07/2020 Scheduled Telephone [facility], [facility] [address] [place] [address] Coordinator, [facility] [address] [place] [address] [phone] Allergies Active Allergy Reactions Severity Noted Date Comments Adhesive Tape 06/29/2003 Sensitive to Naproxen Hives 05/28/2015 Ivp Dye Hives 08/20/2000 Latex Other (Please comment) 01/05/2015 Contact rash Ibuprofen Rash 01/05/2015 documented as of this encounter (statuses as of 09/07/2020) Medications Medication Sig Dispensed Refills Start Date [...] other day, Reported on 05/08/2020 nystatin (NYSTOP) [id number] UNIT/GM powderIndications:C andidal skin infection Apply topically [...] as of this encounter (statuses as of 09/07/2020) Active Problems Problem Noted Date Moderate episode [...] as of this encounter (statuses as of 09/07/2020) Resolved Problems Problem Noted Date Resolved Date [...] as of this encounter (statuses as of 09/07/2020) Immunizations Name Administration Dates Next Due Pneumococcal [...] Telephone Encounter - Magda Arreola LPN - 09/07/2020 12:38 PM TREVON Dickerson is [place] [facility] [place]. * Telephone Encounter - Stephanie Tucker CRNP - 09/07/2020 9:38 AM EST Yes, meets criteria to end quarenteen. Continue with symptom management and call with any concerns. SAMIR Proctor * Telephone Encounter - Magda Arreola LPN - 09/07/2020 9:06 AM EST Current concerns: She has a headache this morning. She did not take anything yet. She is making herbreakfast now. Problems/Symptoms: Patients current temperature: 97.5 Highest recorded temperature within the last 24 hours 97.5 Use of antipyretics? No Symptoms: Nausea Patient describes onset of nausea as: Other, nauseated from phlegm Patient experiences nausea Irregular Patient obtains relief from nausea with:Other, coughing up phlegm Shortness of Breath Describe onset of shortness of breath: More than 3 days ago, onset of symptoms Describe patient's shortness of breath: Increased from baseline Describe when shortness of breath occurs: Intermittent with exercise/activity Cough Cough description: Productive Color of Sputum: Yellow Consistency of Sputum: Thick (baseline) Anticoagulation: Has the patient been started on anticoagulation due to COVID-19? No Treatment/Plan: Continue to monitor symptoms; call [facility] with any changes/worsening of symptoms. Her 14 day phone calls end today. Routed to [facility] [place] recommendations on ending quarantine. Anticoagulation: N/A Test Results: Positive Your test [...] your cough or shortness of breath have improved) AND o At least 10 days have passed [...] ifthey have cold/flu symptoms, they should call [employer] COVID-19 hotline at [phone] and get tested for the virus. ? Treat your symptoms with gfgx-piv-cmhyrph medications, such as Tylenol. ? If you develop new symptoms or your symptoms are worsening, call your Small Machine Bindery Operator/[facility] Intake Team/PCP for advice. If you begin to experience a medical emergency, call 911 and advise them that you have tested positive for COVID-19 ? If you are a [employer] staff member or employee, when you receive your result, please call [employer] between 7 a.m. and 4 p.m. at [phone]. Notify them of your test results and [...] with all urgent but not emergent issues. Routed to [facility] [place] recommendations on ending quarantine./continuing calls beyond today (day 14). documented in this encounter Plan of Treatment Upcoming Encounters Date Type Specialty Care Team Description 09/14/2020 Home Visit [facility] Corrina Layne RN [address] [place] [address] [place] [address] [phone] 12/22/2020 Office Visit Internal Medicine Jade Castillo MD [address] [place] [address] [place] [address] Health Maintenance Due Date [...] Documents on File Type Date Recorded Patient Supervising Fire Marshal Expl 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
--- OUTSIDE RECORDS SUMMARY | 2023-06-07 08:05 | External Medical Summary | Summary of Care ---
Author Name Unknown Organization [facility] Address [place] [address] Care Team Providers Care Mds Manager Name Role Phone Yariel Cardoza MD Primary Care Provide r Reason for Visit * Reason Onset Date Comments [facility]: Maintenance 09/07/2020 Encounter Details Date Type Department Care Team Description 09/07/2020 Scheduled Telephone [facility], [facility] [address] [place] [address] Coordinator, [facility] [address] [place] [address] [phone] Allergies Active Allergy Reactions Severity Noted Date [...] 0.4 mg by mouth daily. Per [facility] 0 06/09/2019 Active ondansetron (ZOFRAN) 4 MG Tablet Take 4 mg by mouth every 6 hours as needed for Nausea. Per [facility] ER 0 06/09/2019 Active Sennosides (SENNA) [...] other day, Reported on 05/08/2020 nystatin (NYSTOP) [id number] UNIT/GM powderIndications:C andidal skin infection Apply topically [...] encounter Miscellaneous Notes * Telephone Encounter - Stephanie Tucker CRNP - 09/07/2020 9:38 AM EST Yes, meets criteria to end quarenteen. Continue with symptom management and call with any concerns. SAMIR Proctor * Telephone Encounter - Magda Arreola, SHACTOR HELPER - 09/07/2020 9:06 AM EST Current concerns: [...] No Treatment/Plan: Continue to monitor symptoms; call [facility] with any changes/worsening of symptoms. Her 14 day phone calls end today. [place] [facility] [place] on ending [place]ine. Anticoagulation: N/A [...] ifthey have cold/flu symptoms, they should call [employer] COVID-19 hotline at [phone] and get tested for the virus. ? Treat your symptoms with cuhy-aht-pxtetxn medications, such as Tylenol. ? If you develop new symptoms or your symptoms are worsening, call your Crude Oil Treater/[facility] Intake Team/PCP for advice. If you begin to experience a medical emergency, call 911 and advise them that you have tested positive for COVID-19 ? If you are a [employer] staff member or employee, when you receive your result, please call [employer] between 7 a.m. and 4 p.m. at [phone]. Notify them of your test results and [...] urgent but not emergent issues. Routed to [facility] [place] recommendations on ending quarantine./continuing calls beyond today (day 14). documented in this encounter Plan of Treatment Upcoming Encounters Date Type Specialty Care Team Description 09/14/2020 Home Visit [facility] Home Corrina Layne RN [address] [place] [address] [place] [address] [phone] 12/22/2020 Office Visit Internal Medicine Jade Castillo MD [address] [place] [address] [place] [address] [phone] Health Maintenance Due Date Last Done Comments [...] Documents on File Type Date Recorded Patient Emt Driver Expl 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
--- OUTSIDE RECORDS SUMMARY | 2023-06-07 08:05 | External Medical Summary | Summary of Care ---
Author Name Unknown Organization [place] [address] Care Team Providers Care Sales Representative Womens Health Name Role Phone Yariel Cardoza MD Primary Care Provide r Reason for Visit * Reason Onset Date Comments [facility]: Maintenance 2020 c ovid Encounter Details Date Type Department Care Team Description 2020 Scheduled Telephone [facility], [facility] 132 [facility] [place] [address] [facility], Nurse [facility] 132 [place] [address] [phone] Allergies Active Allergy Reactions Severity Noted Date Comments Adhesive Tape 06/29/2003 Sensitive to Naproxen Hives 05/28/2015 Ivp Dye Hives 08/20/2000 Latex Other (Please comment) 01/05/2015 Contact rash Ibuprofen Rash 01/05/2015 documented as of this encounter (statuses as of 2020) Medications Medication Sig Dispensed Refills Start Date [...] other day, Reported on 05/08/2020 nystatin (NYSTOP) [id number] UNIT/GM powderIndications:C andidal skin infection Apply topically [...] as of this encounter (statuses as of 2020) Active Problems Problem Noted Date Moderate episode [...] as of this encounter (statuses as of 2020) Resolved Problems Problem Noted Date Resolved Date [...] as of this encounter (statuses as of 2020) Immunizations Name Administration Dates Next Due Pneumococcal [...] Miscellaneous Notes * Telephone Encounter - Deborah Matias RN - 2020 9:12 AM EST covid + Call to pt T 97.8F Spo2 92, HR 72 Feeling better Breathing is improved, using nebulizer prn, did not need yesterday Occasional productive cough, white and yellow sputum Taking apap 1000mg q4-6h, instructed to take q6h and NTE 4000mg/24h, verbalized understanding NOTE: pt's went to ER last night and is being admitted to [facility] d/t covid documented in this encounter Plan of Treatment Upcoming Encounters Date Type Specialty Care Team Description 09/04/2020 Scheduled Telephone [facility], Nurse [place] [address] [place] [place] [address] [phone] 09/05/2020 Scheduled Telephone [facility] Technical Specialist Cytology, [facility] [place] [address] [phone] 09/06/2020 Scheduled Telephone [facility] Technical Specialist Cytology, [facility] Lam[address] [place] [address] [phone] 09/06/2020 Home Visit [facility] Corrina Layne RN [address] [place] [address] [phone] 09/07/2020 Scheduled Telephone [facility] Technical Specialist Cytology, [facility] [place] [place] [address] [phone] 12/22/2020 Office Visit Internal Medicine Jade Castillo MD [address] [place] [address] [place] [address] [phone] Health Maintenance Due Date Last Done Comments [...] Documents on File Type Date Recorded Patient Patient Liaison Expl 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
--- OUTSIDE RECORDS SUMMARY | 2023-06-07 08:05 | External Medical Summary | Summary of Care ---
Author Name Unknown Organization [place] [address] Care Team Providers Care Music Mixer Name Role Phone Yariel Cardoza MD Primary Care Provide r Reason for Visit * Reason Onset Date Comments [facility]: Maintenance 2020 c ovid Encounter Details Date Type Department Care Team Description 2020 Scheduled Telephone [facility], [facility] 132 [facility] [place] [address] [facility], Nurse [facility] [place] [address] [phone] Allergies Active Allergy Reactions Severity Noted Date [...] other day, Reported on 05/08/2020 nystatin (NYSTOP) [id number] UNIT/GM powderIndications:C andidal skin infection Apply topically [...] last night and is being admitted to [facility] d/t covid documented in this encounter Plan of Treatment Upcoming Encounters Date Type Specialty Care Team Description 09/04/2020 Scheduled Telephone [facility] [place], Nurse [place] [address] [address] [place] [address] [phone] 09/05/2020 Scheduled Telephone [facility] Security Engineer, [facility] [place] [address] [phone] 09/06/2020 Scheduled Telephone [facility] Security Engineer, [facility] Lamar Garciagail [place] [address] [phone] 09/06/2020 Home Visit [facility] Corrina Layne RN [address] [place] [address] [phone] 09/07/2020 Scheduled Telephone [facility] Security Engineer, [facility] [place] [address] [phone] 12/22/2020 Office Visit Internal Medicine Jade Castillo MD [address] [place] [address] [place] [address] [phone] Health Maintenance Due Date Last Done Comments [...] Documents on File Type Date Recorded Patient Optometrist Assistant Expl 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
--- OUTSIDE RECORDS SUMMARY | 2023-06-07 08:05 | External Medical Summary | Summary of Care ---
Author Name Unknown Organization [facility] Address [place] [address] Care Team Providers Care Labor Mediator Name Role Phone Yariel Cardoza MD Primary Care Provide r Reason for Visit * Reason Onset Date Comments [facility]: Maintenance 09/07/2020 Encounter Details Date Type Department Care Team Description 09/07/2020 Scheduled Telephone [facility], [facility] [address] [place] [address] Coordinator, [facility] [address] [place] [address] [phone] Allergies Active Allergy Reactions Severity Noted Date [...] other day, Reported on 05/08/2020 nystatin (NYSTOP) [id number] UNIT/GM powderIndications:C andidal skin infection Apply topically [...] Proctor * Telephone Encounter - Magda Arreola, AUTO REFINISHER - 09/07/2020 9:06 AM EST Current concerns: [...] No Treatment/Plan: Continue to monitor symptoms; call [facility] with any changes/worsening of symptoms. Her 14 day phone calls end today. Routed to [facility] for recommendations on ending quarantine. Anticoagulation: N/A [...] ifthey have cold/flu symptoms, they should call [employer] COVID-19 hotline at [phone] and get tested for the virus. ? Treat your symptoms with ptwu-apo-bowilhf medications, such as Tylenol. ? If you develop new symptoms or your symptoms are worsening, call your Product Engineering Manager/[facility] Intake Team/PCP for advice. If you begin to experience a medical emergency, call 911 and advise them that you have tested positive for COVID-19 ? If you are a [employer] staff member or employee, when you receive your result, please call [employer] between 7 a.m. and 4 p.m. at [phone]. Notify them of your test results and [...] urgent but not emergent issues. Routed to [facility] for recommendations on ending quarantine./continuing calls beyond today (day 14). documented in this encounter Plan of Treatment Upcoming Encounters Date Type Specialty Care Team Description 09/14/2020 Home Visit [facility] at Home Corrina Layne RN [address] [place] [address] [place] [address] [phone] 12/22/2020 Office Visit Internal Medicine Jade Castillo MD [address] [place] [address] [place] [address] [phone] Health Maintenance Due Date Last Done Comments [...] Documents on File Type Date Recorded Patient Multisensor Intelligence Officer Expl 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
--- OUTSIDE RECORDS SUMMARY | 2023-06-07 08:05 | External Medical Summary | Summary of Care ---
Author Name Unknown Organization [facility] Address [facility] [place] [address] Care Team Providers Care Customer Service Rep Name Role Phone Yariel Cardoza MD Primary Care Provide r Reason for Visit * Reason Onset Date Comments [facility]: Maintenance 09/04/2020 Encounter Details Date Type Department Care Team Description 09/04/2020 Scheduled Telephone [facility], [facility] 132 [facility] [place] [address] [facility], Nurse [facility] 132 [facility] [place] [address] [phone] Allergies Active Allergy Reactions Severity Noted Date Comments Adhesive Tape 06/29/2003 Sensitive to Naproxen Hives 05/28/2015 Ivp Dye Hives 08/20/2000 Latex Other (Please comment) 01/05/2015 Contact rash Ibuprofen Rash 01/05/2015 documented as of this encounter (statuses as of 09/04/2020) Medications Medication Sig Dispensed Refills Start Date [...] Take 0.4 mg by mouth daily. Per [facility] 0 06/09/2019 Active ondansetron (ZOFRAN) 4 MG Tablet Take 4 mg by mouth every 6 hours as needed for Nausea. Per [facility] 0 06/09/2019 Active Sennosides (SENNA) 8.6 [...] other day, Reported on 05/08/2020 nystatin (NYSTOP) [id number] UNIT/GM powderIndications:C andidal skin infection Apply topically [...] as of this encounter (statuses as of 09/04/2020) Active Problems Problem Noted Date Moderate episode [...] as of this encounter (statuses as of 09/04/2020) Resolved Problems Problem Noted Date Resolved Date [...] as of this encounter (statuses as of 09/04/2020) Immunizations Name Administration Dates Next Due Pneumococcal [...] Miscellaneous Notes * Telephone Encounter - Ashley Shaffer LPN - 09/04/2020 12:58 PM EST Current concerns: Spoke with Jayla she retorts she is having a good day. No concerns. Had some wheezingf this AM that was relieved w/ HHN POX 90 on RA, wears O2 at HS, encouraged to use throughout theday as needed. She spoke with her who is in pt at [facility] and said he was doing OK Problems/Symptoms: Patients current temperature 97 Highest recorded temperature within the last 24 hours NA Use of antipyretics? No Symptoms: Cough Cough description: Productive Color of Sputum: Hernandez Consistency of Sputum: Thicker than usual (beyond baseline) Anticoagulation: Has the patient been started on anticoagulation due to COVID-19? No Treatment/Plan: Continue daily telephonic monitoring Anticoagulation: N/A Test Results: Positive Your test [...] ifthey have cold/flu symptoms, they should call [employer] COVID-19 hotline at [phone] and get tested for the virus. ? Treat your symptoms with gzjf-nbz-btobpds medications, such as Tylenol. ? If you develop new symptoms or your symptoms are worsening, call your Fire Prevention Research Engineer/[facility] Intake Team/PCP for advice. If you begin to experience a medical emergency, call 391 and advise them that you have tested positive for COVID-19 ? If you are a [employer] staff member or employee, when you receive your result, please call [employer] between 7 a.m. and 4 p.m. at [phone]. Notify them of your test results and for instructions on returning to work after your quarantine period. ? Your primary care provider will be notified of your results. Contact them for follow-up care. Has patient recovered (at least 10 days since symptoms began AND patient feeling well and without fever for at least 24 hours)? Yes Follow Up: Patient encouraged to call with all urgent but not emergent issues. Scheduled to follow up with patient in 1 day . documented in this encounter Plan of Treatment Upcoming Encounters Date Type Specialty Care Team Description 09/05/2020 Scheduled Telephone [facility] Loom Setter, [facility] [address] [place] [address] [phone] 09/06/2020 Scheduled Telephone [facility] Loom Setter, [facility] [address] [place] [address] [phone] 09/06/2020 Home Visit [facility] Corrina Layne RN [address] [place] [address] [phone] 09/07/2020 Scheduled Telephone [facility] Loom Setter, [facility] [address] [place] [address] [phone] 12/22/2020 Office Visit Internal Medicine Jade Castillo MD [address] [place] [address] [place] [address] [phone] Health Maintenance Due Date Last Done Comments [...] Documents on File Type Date Recorded Patient Teaching Dietitian Expl 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
--- OUTSIDE RECORDS SUMMARY | 2023-06-07 08:06 | External Medical Summary | Summary of Care ---
Author Name Unknown Organization [facility] Address [place] [address] Care Team Providers Care Hot Blaster Name Role Phone Yariel Cardoza MD Primary Care Provide r Reason for Visit * Reason Onset Date Comments [facility]: Maintenance 09/02/2020 Encounter Details Date Type Department Care Team Description 09/02/2020 Scheduled Telephone [facility], [facility] [address] [place] [address] Coordinator, [facility] [address] [place] [place] [address] [phone] Allergies Active Allergy Reactions Severity Noted Date Comments Adhesive Tape 06/29/2003 Sensitive to Naproxen Hives 05/28/2015 Ivp Dye Hives 08/20/2000 Latex Other (Please comment) 01/05/2015 Contact rash Ibuprofen Rash 01/05/2015 documented as of this encounter (statuses as of 09/02/2020) Medications Medication Sig Dispensed Refills Start Date [...] Take 0.4 mg by mouth daily. Per [facility] 0 06/09/2019 Active ondansetron (ZOFRAN) 4 MG Tablet Take 4 mg by mouth every 6 hours as needed for Nausea. Per [facility] ER 0 06/09/2019 Active [...] other day, Reported on 05/08/2020 nystatin (NYSTOP) [id number] UNIT/GM powderIndications:C andidal skin infection Apply topically [...] as of this encounter (statuses as of 09/02/2020) Active Problems Problem Noted Date Moderate episode [...] as of this encounter (statuses as of 09/02/2020) Resolved Problems Problem Noted Date Resolved Date [...] as of this encounter (statuses as of 09/02/2020) Immunizations Name Administration Dates Next Due Pneumococcal [...] Telephone Encounter - Tara Stevens LPN - 09/02/2020 1:37 PM EST Daily COVID call Doing good Started with a productive cough of yellow mucous Denies any wheezing or chest tightness Denies any SOB Temp: 98.5 Pulse ox: 91% on room air Wears 2lpm of oxygen at HS Pulse: 79 Eating and drinking well Denies any needs or concerns documented in this encounter Plan of Treatment Upcoming Encounters Date Type Specialty Care Team Description 2020 Scheduled Telephone [facility], Nurse [place] [address] [place] [address] [phone] 09/04/2020 Scheduled Telephone [facility] [place], Nurse [facility] [place] [address] [phone] 09/05/2020 Scheduled Telephone [facility] Water Analyst, [facility] Lam[place]ail [place] [address] [phone] 09/06/2020 Scheduled Telephone [facility] Water Analyst, [facility] [address] [place] [address] [phone] 09/06/2020 Home Visit [facility] Corrina Layne RN [address] [place] [address] [phone] 09/07/2020 Scheduled Telephone [facility] Water Analyst, [address] [place] [address] [phone] 12/22/2020 Office Visit Internal Medicine Jade Castillo MD [address] [place] [address] [place] [address] [phone] Health Maintenance Due Date Last Done Comments [...] Documents on File Type Date Recorded Patient Sales And Service Engineer Expl 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
--- OUTSIDE RECORDS SUMMARY | 2023-06-07 08:06 | External Medical Summary | Summary of Care ---
Author Name Unknown Organization [facility] [place] [address] Care Team Providers Care Realty Loan Specialist Name Role Phone Yariel Cardoza MD Primary Care Provide r Reason for Visit * Reason Onset Date Comments [facility]: Maintenance 08/31/2020 Encounter Details Date Type Department Care Team Description 08/31/2020 Scheduled Telephone [facility], [facility] [address] [place] [address] Coordinator, [facility] [address] [place] [address] [phone] Allergies Active Allergy Reactions Severity Noted Date Comments Adhesive Tape 06/29/2003 Sensitive to Naproxen Hives 05/28/2015 Ivp Dye Hives 08/20/2000 Latex Other (Please comment) 01/05/2015 Contact rash Ibuprofen Rash 01/05/2015 documented as of this encounter (statuses as of 08/31/2020) Medications Medication Sig Dispensed Refills Start Date [...] Take 0.4 mg by mouth daily. Per [facility] 0 06/09/2019 Active ondansetron (ZOFRAN) 4 MG Tablet Take 4 mg by mouth every 6 hours as needed for Nausea. Per [facility] ER 0 06/09/2019 Active Sennosides (SENNA) [...] other day, Reported on 05/08/2020 nystatin (NYSTOP) [id number] UNIT/GM powderIndications:C andidal skin infection Apply topically [...] as of this encounter (statuses as of 08/31/2020) Active Problems Problem Noted Date Moderate episode [...] as of this encounter (statuses as of 08/31/2020) Resolved Problems Problem Noted Date Resolved Date [...] as of this encounter (statuses as of 08/31/2020) Immunizations Name Administration Dates Next Due Pneumococcal [...] Telephone Encounter - Tara Stevens LPN - 08/31/2020 2:14 PM EST Spoke with patient She states today is the best she has felt in a while Temp: 99.4 Did take a tylenol this morning d/t a headache Breathing good-denies any SOB Pulse ox: 85% Wears 2lpm of oxygen at HS Pulse: 79 Eating and drinking well Had CXR from mobile xray today at 1230pm Denies any needs or concerns today * Telephone Encounter - Tara Stevens LPN - 08/31/2020 10:00 AM EST Attempt to reach patient/ for daily COVID call No answer Will attempt again later documented in this encounter Plan of Treatment Upcoming Encounters Date Type Specialty Care Team Description 09/01/2020 Scheduled Telephone [facility], Nurse [facility] [place] [address] [phone] 09/02/2020 Scheduled Telephone [facility], [facility] [place] [address] [phone] 2020 Scheduled Telephone [facility], Nurse [facility] [place] [address] [phone] 09/04/2020 Scheduled Telephone [facility], Nurse [facility] [place] [address] [phone] 09/05/2020 Scheduled Telephone [facility] Officer, [facility] [place] [address] [phone] 09/06/2020 Scheduled Telephone [facility] Officer, [facility] [place] [address] [phone] 09/06/2020 Home Visit [facility] Corrina Layne RN [address] [place] [address] [phone] 09/07/2020 Scheduled Telephone [facility] Officer, [facility] [address] [place] [address] [phone] 12/22/2020 Office Visit Internal Medicine Jade Castillo MD [address] [place] [address] [place] [address] [phone] Health Maintenance Due Date Last Done Comments [...] Documents on File Type Date Recorded Patient Technical Data Analyst Expl 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
--- OUTSIDE RECORDS SUMMARY | 2023-06-07 08:06 | External Medical Summary | Summary of Care ---
Author Name Unknown Organization [place] [address] Care Team Providers Care Recreation Superintendent Name Role Phone Yariel Cardoza MD Primary Care Provide r Reason for Visit * Reason Onset Date Comments COVID-19 Screening 08/29/2020 Encounter Details Date Type Department Care Team Description 08/29/2020 Telephone COVID19 Screening [facility] [address] [place] [id number], Automated Provider COVID-19 Screening Allergies Active Allergy Reactions Severity Noted Date Comments Adhesive Tape 06/29/2003 Sensitive to Naproxen Hives 05/28/2015 Ivp Dye Hives 08/20/2000 Latex Other (Please comment) 01/05/2015 Contact rash Ibuprofen Rash 01/05/2015 documented as of this encounter (statuses as of 08/29/2020) Medications Medication Sig Dispensed Refills Start Date [...] other day, Reported on 05/08/2020 nystatin (NYSTOP) [id number] UNIT/GM powderIndications:C andidal skin infection Apply topically [...] as of this encounter (statuses as of 08/29/2020) Active Problems Problem Noted Date Moderate episode [...] as of this encounter (statuses as of 08/29/2020) Resolved Problems Problem Noted Date Resolved Date [...] as of this encounter (statuses as of 08/29/2020) Immunizations Name Administration Dates Next Due Pneumococcal [...] encounter Miscellaneous Notes * Telephone Encounter - Saeed Olivaresid Results - 08/29/2020 11:26 PM EST Outreach Attempts IVR Call Aug 29 2020 9:42AM Answered - Failed to Authenticate IVR Call Aug 29 2020 5:25PM Answered - Success Results COVID: Positive IVR Message: Florin Dickerson. Your test results from 08/24/2020 00:00:00 are as follows: COVID-19 is positive. This means you are infected with coronavirus. You will be receiving an automated call daily for the next 10 days to monitor your symptoms. Please select 1 if you would like opt out of symptom monitoring. Here's what you need to do immediately: Quarantine yourself in your home until: -You have had no fever for at least 24 hours (that is one full day of no fever without the use of medicine that reduces fevers) AND - other symptoms have improved (for example, when your cough or shortness of breath have improved) AND - at least 10 days have passed since your symptoms first appeared If you live with others, isolate yourself to a single room away from them and avoid any contact during the quarantine time. Wash your hands frequently and cover your cough. If you were in close contact with any family members, roommates or friends in the 2 days before your cold/flu symptoms started, notify them that you tested positive for COVID-19. Tell them that if they have cold/flu symptoms, they should call [facility] hotline at [phone]. Treat your symptoms with rcps-cmi-eidebkx medications, such as Tylenol. If you develop new symptoms or your symptoms are worsening, call [facility] hotline at [phone] or your physician for advice. If your symptoms become severe, go to the nearest ER. If you are alone and/or in distress, call 911. Your results are also available for your reference in your [employer] account under 'Test & Lab Results.' If you are not enrolled in [employer], you can create an account by going to [email or web address]. You will also receive a letter in the mail with your results. If you are a [employer] staff member or employee, when you receive your result, please call [facility] between 7 a.m. and 4 p.m. at [phone]. Notify them of your test results and for instructions on returning to work after your quarantine period. Press 1 if you would like to speak with a nurse, press 2 to hear this message again. documented in this encounter Plan of Treatment Upcoming Encounters Date Type Specialty Care Team Description 08/30/2020 Scheduled Telephone [facility]or, [facility] [place] [address] [phone] 08/31/2020 Scheduled Telephone [facility] Processor, [facility] [place] [address] [phone] 09/01/2020 Scheduled Telephone [facility], Nurse [facility] [place] [address] [phone] 09/02/2020 Scheduled Telephone [facility] Fish Processor, [facility] [place] [address] [phone] 2020 Scheduled Telephone [facility], Nurse [facility] [place] [address] [phone] 09/04/2020 Scheduled Telephone [facility], Nurse [facility] [place] [address] [phone] 09/05/2020 Scheduled Telephone [facility] Fish Processor, [facility] [place] [address] [phone] 09/06/2020 Scheduled Telephone [facility]or, [facility] [place] [address] [phone] 09/06/2020 Home Visit [facility] Corrina Layne RN [address] [place] [address] [phone] 09/07/2020 Scheduled Telephone [facility]or, [facility] [place] [address] [phone] 12/22/2020 Office Visit Internal Medicine Jade Castillo MD [address] [place] [address] [place] [address] Health Maintenance Due Date [...] Documents on File Type Date Recorded Patient Optimization Consultant Expl 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
--- OUTSIDE RECORDS SUMMARY | 2023-06-07 08:06 | External Medical Summary | Summary of Care ---
Author Name Unknown Organization [facility] Address [facility] [place] [address] Care Team Providers Care Chief Recordist Name Role Phone Yariel Cardoza MD Primary Care Provide r Reason for Visit * Reason Onset Date Comments [facility]: Maintenance 08/30/2020 Encounter Details Date Type Department Care Team Description 08/30/2020 Telephone [facility], [facility] [address] [facility] [address] [place] [address] [facility], Nurse [facility] [address] [place] [address] [phone] [facility]: Maintenance Allergies Active Allergy Reactions Severity Noted Date Comments Adhesive Tape 06/29/2003 Sensitive to Naproxen Hives 05/28/2015 Ivp Dye Hives 08/20/2000 Latex Other (Please comment) 01/05/2015 Contact rash Ibuprofen Rash 01/05/2015 documented as of this encounter (statuses as of 08/30/2020) Medications Medication Sig Dispensed Refills Start Date [...] Take 0.4 mg by mouth daily. Per [facility] ER 0 06/09/2019 Active ondansetron (ZOFRAN) 4 MG Tablet Take 4 mg by mouth every 6 hours as needed for Nausea. Per [facility] ER 0 06/09/2019 Active Sennosides [...] other day, Reported on 05/08/2020 nystatin (NYSTOP) [id number] UNIT/GM powderIndications:C andidal skin infection Apply topically [...] as of this encounter (statuses as of 08/30/2020) Active Problems Problem Noted Date Moderate episode [...] as of this encounter (statuses as of 08/30/2020) Resolved Problems Problem Noted Date Resolved Date [...] as of this encounter (statuses as of 08/30/2020) Immunizations Name Administration Dates Next Due Pneumococcal [...] Telephone Encounter - Michelle Hunt RN - 08/30/2020 12:31 PM EST Phone call from pt regarding time and date chest xray to be completed. Previous notes stated info faxed to [facility]. [facility] mobile xray called and advised us that they do not service patients area. [facility] then called order sent and appt confirmed for today. [facility] calling patient to set up ETA. Patient called and made aware. Xray conf # for claudette [id number] Malka Duckworth RN,BSN [place] documented in this encounter Plan of Treatment Upcoming Encounters Date Type Specialty Care Team Description 08/31/2020 Scheduled Telephone [facility] [place], [place] [address] [address] [place] [address] [phone] 09/01/2020 Scheduled Telephone [facility], Nurse [facility] [address] [place] [place] [address] [phone] 09/02/2020 Scheduled Telephone [facility] [place], [facility] [address] [place] [address] [phone] 2020 Scheduled Telephone [facility], Nurse [facility] [address] [place] [place] [address] [phone] 09/04/2020 Scheduled Telephone [facility], Nurse [facility] Lam[address] Garc[place] [address] [phone] 09/05/2020 Scheduled Telephone [facility] Stained Glass [place], [facility] aLmar Garciagail [place] [address] [phone] 09/06/2020 Scheduled Telephone [facility]ained [facility] [place], [facility] Lam[address] Rodriguezil [place] [address] [phone] 09/06/2020 Home Visit [facility] Corrina Layne RN [address] [place] [address] [phone] 09/07/2020 Scheduled Telephone [facility] [place], [facility] [place] [address] [place] [address] [phone] 12/22/2020 Office Visit Internal Medicine Jade Castillo MD [address] [place] [address] [place] [address] [phone] Health Maintenance Due Date Last Done Comments [...] Documents on File Type Date Recorded Patient Personal Counselor Expl 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
--- OUTSIDE RECORDS SUMMARY | 2023-06-07 08:06 | External Medical Summary | Summary of Care ---
Author Name Unknown Organization [facility] Address [place] [address] Care Team Providers Care Single Needle Operator Name Role Phone Yariel Cardoza MD Primary Care Provide r Reason for Visit * Reason Onset Date Comments [facility]: Maintenance 08/29/2020 Encounter Details Date Type Department Care Team Description 08/29/2020 Scheduled Telephone [facility], [facility] [address] [place] [address] Coordinator, [facility] [address] [place] [address] [phone] Allergies Active Allergy Reactions Severity Noted Date [...] 0.4 mg by mouth daily. Per [facility] ER 0 06/09/2019 Active ondansetron (ZOFRAN) 4 MG Tablet Take 4 mg by mouth every 6 hours as needed for Nausea. Per [facility] ER 0 06/09/2019 Active Sennosides (SENNA) [...] other day, Reported on 05/08/2020 nystatin (NYSTOP) [id number] UNIT/GM powderIndications:C andidal skin infection Apply topically [...] Telephone Encounter - Magda Arreola LPN - 08/29/2020 1:00 PM EST Current concerns: She is feeling nauseated today. She ate rotini in pasta sauce for early lunch. She will take Zofran if it gets bad. Problems/Symptoms: Patients current temperature 98.7 Highest recorded temperature within the last 24 hours 98.7 Use of antipyretics? Yes Last dose taken 08/29 at 8:00 am Symptoms: Nausea Patient describes onset of nausea as: Abrupt Patient experiences nausea Before breakfast Patient obtains relief from nausea with:Prescription medication, Zofran Cough Cough description: Productive Color of Sputum: Yellow Consistency of Sputum: Thick (baseline) Weakness/Dizziness Weak New onset of weakness: No Onset of weakness was: 3-6 days Patient describes weakness as: Generalized weakness Location of weakness: Generalized weakness Patient has a history of: None reported Patient has the following symptoms related to dehydration: None reported Anticoagulation: Has the patient been started on anticoagulation due to COVID-19? No Treatment/Plan: Continue isolate/quarantine. Anticoagulation: N/A Test Results: Positive Your test [...] ifthey have cold/flu symptoms, they should call [facility] COVID-19 hotline at [phone] and get tested for the virus. ? Treat your symptoms with fhan-ken-lddhpwy medications, such as Tylenol. ? If you develop new symptoms or your symptoms are worsening, call your Pst Specialist/[facility] Intake Team/PCP for advice. If you begin to experience a medical emergency, call 911 and advise them that you have tested positive for COVID-19 ? If you are a [facility] staff member or employee, when you receive your result, please call [facility] between 7 a.m. and 4 p.m. at [phone]. Notify them of your test results and for instructions on returning to work after your quarantine period. ? Your primary care provider will be notified of your results. Contact them for follow-up care. Has patient recovered (at least 10 days since symptoms began AND patient feeling well and without fever for at least 24 hours)? No Follow Up: Patient encouraged to call with all urgent but not emergent issues. Scheduled to follow up with patient in one day via phone call. Chest xray order faxed to [facility] at [phone]. documented in this encounter Plan of Treatment Upcoming Encounters Date Type Specialty Care Team Description 08/30/2020 Scheduled Telephone [facility] Creasing [employer] Cutting Press Feeder, [facility] [place] [address] [phone] 08/31/2020 Scheduled Telephone [facility] [employer] Cutting Press Feeder, [facility] [place] [address] [phone] 09/01/2020 Scheduled Telephone [facility], [facility] [place] [address] [phone] 09/02/2020 Scheduled Telephone [facility] Cre[facility] [employer] Cutting Press Feeder, [facility] [place] [address] [phone] 2020 Scheduled Telephone [facility], [place] [address] [phone] 09/04/2020 Scheduled Telephone [facility], [facility] [place] [address] [phone] 09/05/2020 Scheduled Telephone [facility] Creasing [employer] Cutting Press Feeder, [address] [place] [address] [phone] 09/06/2020 Scheduled Telephone [facility] [employer] Cutting Press Feeder, [place] [address] [address] [place] [address] [phone] 09/06/2020 Home Visit [facility] Corrina Layne RN [address] [facility] [place] [address] [phone] 09/07/2020 Scheduled Telephone [facility] Creasing [employer] Cutting Press Feeder, [place] [address] [address] [place] [address] [phone] 12/22/2020 Office Visit Internal Medicine Jade Castillo MD [address] [place] [address] [place] [address] [phone] Health Maintenance Due Date Last Done Comments [...] on File Type Date Recorded 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
--- OUTSIDE RECORDS SUMMARY | 2023-06-07 08:06 | External Medical Summary | Summary of Care ---
Author Name Unknown Organization [place] [address] Care Team Providers Care General Dentist/Owner Name Role Phone Yariel Cardoza MD Primary Care Provide r Reason for Visit * Reason Onset Date Comments COVID-19 Screening 08/28/2020 Encounter Details Date Type Department Care Team Description 08/28/2020 Telephone COVID19 Screening [facility] [address] [place] [id number], Automated Provider COVID-19 Screening Allergies Active Allergy Reactions Severity Noted Date Comments Adhesive Tape 06/29/2003 Sensitive to Naproxen Hives 05/28/2015 Ivp Dye Hives 08/20/2000 Latex Other (Please comment) 01/05/2015 Contact rash Ibuprofen Rash 01/05/2015 documented as of this encounter (statuses as of 08/28/2020) Medications Medication Sig Dispensed Refills Start Date [...] Take 0.4 mg by mouth daily. Per [facility] ER 0 06/09/2019 Active ondansetron (ZOFRAN) 4 MG Tablet Take 4 mg by mouth every 6 hours as needed for Nausea. Per [facility] ER 0 06/09/2019 Active Sennosides [...] other day, Reported on 05/08/2020 nystatin (NYSTOP) [id number] UNIT/GM powderIndications:C andidal skin infection Apply topically [...] as of this encounter (statuses as of 08/28/2020) Active Problems Problem Noted Date Moderate episode [...] as of this encounter (statuses as of 08/28/2020) Resolved Problems Problem Noted Date Resolved Date [...] as of this encounter (statuses as of 08/28/2020) Immunizations Name Administration Dates Next Due Pneumococcal [...] Telephone Encounter - Shahriar Olivares Results - 08/28/2020 11:37 PM EST Outreach Attempts IVR Call Aug 28 2020 9:44AM Answered - Failed to Authenticate IVR Call Aug 28 2020 6:47PM Answered - Failed to Authenticate Results COVID: Positive IVR Message: Unsuccessful contact, no education provided documented in this encounter Plan of Treatment Upcoming Encounters Date Type Specialty Care Team Description 08/29/2020 Scheduled Telephone [facility] Health Billing Specialist, [facility] [place] [address] [phone] 08/30/2020 Scheduled Telephone [facility] Health Billing Specialist, [facility] [place] [address] [phone] 08/31/2020 Scheduled Telephone [facility] Health Billing Specialist, [facility] [place] [address] [phone] 09/01/2020 Scheduled Telephone [facility], Nurse [facility] [place] [address] [phone] 09/02/2020 Scheduled Telephone [facility] Billing Specialist, [facility] [place] [address] [phone] 2020 Scheduled Telephone [facility], Nurse [facility] [place] [address] [phone] 09/04/2020 Scheduled Telephone [facility], Nurse [facility] [place] [address] [phone] 09/05/2020 Scheduled Telephone [facility] Billing Specialist, [facility] [place] [address] [phone] 09/06/2020 Scheduled Telephone [facility] Billing Specialist, [facility] [place] [address] [phone] 09/06/2020 Home Visit [facility] Corrina Layne RN [address] [place] [address] [phone] 09/07/2020 Scheduled Telephone [facility] Health Billing Specialist, [place] [address] [place] [address] [phone] 12/22/2020 Office Visit Internal Medicine Jade Castillo MD [address] [place] [address] [place] [address] [phone] Health Maintenance Due Date Last Done Comments [...] Documents on File Type Date Recorded 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
--- OUTSIDE RECORDS SUMMARY | 2023-06-07 08:06 | External Medical Summary | Summary of Care ---
Author Name Unknown Organization [facility] [place] [address] Care Team Providers Care Nurse Chemical Dependency Name Role Phone Yariel Cardoza MD Primary Care Provide r Reason for Visit * Reason Onset Date Comments [facility]: Maintenance 08/30/2020 Encounter Details Date Type Department Care Team Description 08/30/2020 Scheduled Telephone [facility], [facility] [address] [place] [address] Coordinator, [facility] [address] [place] [address] [phone] Allergies Active Allergy Reactions Severity Noted Date [...] Take 0.4 mg by mouth daily. Per [facility] ER 0 06/09/2019 Active ondansetron (ZOFRAN) 4 MG Tablet Take 4 mg by mouth every 6 hours as needed for Nausea. Per [facility] ER 0 06/09/2019 Active Sennosides [...] other day, Reported on 05/08/2020 nystatin (NYSTOP) [id number] UNIT/GM powderIndications:C andidal skin infection Apply topically [...] Telephone Encounter - Magda Arreola LPN - 08/30/2020 11:46 AM EST Spoke with Jayla. She is feeling weak and achy. She had chills last night. Nausea has resolved. Denies any diarrhea. Temp: 98.4, SPO2: 86 (off oxygen at that time), SPO2 rechecked during call: 91 (oxygen 2 lpm on at present) HR: 83. She takes Tylenol, last dose was 7:30 am today. Rare/occasional cough with yellow sputum. Denies any wheezing or shortness of breath. She will call for any changes/worsening of symptoms. Provided call back number Routed to care team as EFRAIN. documented in this encounter Plan of Treatment Upcoming Encounters Date Type Specialty Care Team Description 08/31/2020 Scheduled Telephone [facility] Cytology Supervisor, [facility] [place] [address] [phone] 09/01/2020 Scheduled Telephone [facility], Nurse [facility] [address] [place] [address] [phone] 09/02/2020 Scheduled Telephone [facility] Cytology Supervisor, [facility] [place] [address] [phone] 2020 Scheduled Telephone [facility], Nurse [facility] [place] [address] [phone] 09/04/2020 Scheduled Telephone [facility], Nurse [facility] [place] [address] [phone] 09/05/2020 Scheduled Telephone [facility] Cytology Supervisor, [facility] [place] [address] [phone] 09/06/2020 Scheduled Telephone [facility] Cytology Supervisor, [facility] [place] [address] [phone] 09/06/2020 Home Visit [facility] Corrina Layne, RN [address] [place] [address] [phone] 09/07/2020 Scheduled Telephone [facility] Cytology SupervisorDavid [address] [place] [address] [phone] 12/22/2020 Office Visit Internal Medicine Jade Castillo MD [address] [place] [address] [place] [address] [phone] Health Maintenance Due Date Last Done Comments [...] Documents on File Type Date Recorded 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
--- OUTSIDE RECORDS SUMMARY | 2023-06-07 08:06 | External Medical Summary | Summary of Care ---
Author Name Unknown Organization [place] [address] Care Team Providers Care Peoplesoft Crm Developer Name Role Phone Yariel Cardoza MD Primary Care Provide r Reason for Visit * Reason Onset Date Comments Follow Up 08/26/2020 Encounter Details Date Type Department Care Team Description 08/26/2020 Telephone [facility], [facility] [address] [place] [address] Marybeth Tillman CRNP [address] [place] [address] [phone] Follow Up Allergies Active Allergy Reactions Severity [...] mg by mouth daily. Per [facility] ER 0 06/09/2019 Active ondansetron (ZOFRAN) 4 MG Tablet Take 4 mg by mouth every 6 hours as needed for Nausea. Per [facility] ER 0 06/09/2019 Active Sennosides (SENNA) [...] other day, Reported on 05/08/2020 nystatin (NYSTOP) [id number] UNIT/GM powderIndications:C andidal skin infection Apply topically [...] Team Description 08/29/2020 Scheduled Telephone [facility] Product Advisor, David Flores [address] [place] [address] [phone] 08/30/2020 Scheduled Telephone [facility] Product Advisor, [place] [address] [address] [place] [address] [phone] 08/31/2020 Scheduled Telephone [facility] Product Advisor, [facility] Lam[address] Rodriguez[address] [place] [address] [phone] 09/01/2020 Scheduled Telephone [facility], Nurse [place] [address] [address] [place] [address] [phone] 09/02/2020 Scheduled Telephone [facility] Product Advisor, [place] [address] [address] [place] [address] [phone] 2020 Scheduled Telephone [facility], Nurse [facility] Lamar Garciagail [place] [address] [phone] 09/04/2020 Scheduled Telephone [facility], Nurse [place] [address] [address] [place] [address] [phone] 09/05/2020 Scheduled Telephone [facility] Product Advisor, [facility] [address] [place] [address] [phone] 09/06/2020 Scheduled Telephone [facility] Product Advisor, [facility] [address] [place] [address] [phone] 09/06/2020 Home Visit [facility] Corrina Layne RN [address] [place] [address] [phone] 09/07/2020 Scheduled Telephone [facility] Product Advisor, [facility] [place] [address] [phone] 12/22/2020 Office Visit Internal Medicine Jade Castillo MD [address] [place] [address] [place] [phone] Scheduled Orders Name Type Priority Associated Diagnoses Orde r Schedule XR CHEST 1 VIEW Medical Imaging Routine Shortness of breath Ordered: 08/26/2020 Health Maintenance Due Date Last Done Comments [...] as of this encounter Visit Diagnoses Diagnosis Shortness of breath- Primary documented in this encounter Advance Directives Documents on File Type Date Recorded 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
--- OUTSIDE RECORDS SUMMARY | 2023-06-07 08:06 | External Medical Summary | Summary of Care ---
Author Name Unknown Organization [place] [address] Care Team Providers Care Accountant Auditor Name Role Phone Yariel Cardoza MD Primary Care Provide r Reason for Visit * Reason Onset Date Comments [facility]: Maintenance 09/01/2020 Encounter Details Date Type Department Care Team Description 09/01/2020 Scheduled Telephone [facility], [facility] 132 [facility] [place] [address] [facility], Nurse [facility] [address] [facility] [place] [address] [phone] Allergies Active Allergy Reactions Severity Noted Date Comments Adhesive Tape 06/29/2003 Sensitive to Naproxen Hives 05/28/2015 Ivp Dye Hives 08/20/2000 Latex Other (Please comment) 01/05/2015 Contact rash Ibuprofen Rash 01/05/2015 documented as of this encounter (statuses as of 09/01/2020) Medications Medication Sig Dispensed Refills Start Date [...] mouth daily. Per [facility] ER 0 06/09/2019 Active ondansetron (ZOFRAN) 4 MG Tablet Take 4 mg by mouth every 6 hours as needed for Nausea. Per [facility] 0 06/09/2019 Active Sennosides (SENNA) 8.6 [...] other day, Reported on 05/08/2020 nystatin (NYSTOP) [id number] UNIT/GM powderIndications:C andidal skin infection Apply topically [...] as of this encounter (statuses as of 09/01/2020) Active Problems Problem Noted Date Moderate episode [...] as of this encounter (statuses as of 09/01/2020) Resolved Problems Problem Noted Date Resolved Date [...] as of this encounter (statuses as of 09/01/2020) Immunizations Name Administration Dates Next Due Pneumococcal [...] Telephone Encounter - Mackenzie [place] RN - 09/01/2020 11:26 AM EST Daily Covid call. Pt reports she is feeling better each day Temp - 98.1 now Pulse Ox - 89% RA SOB - denies Cough - "very little" - with yellow or white mucus Wears 2 l/min Oxygen at hs Had CXR done yesterday - results pending Reports no concerns today. Eating and drinking well. Advised of phone call tomorrow and to call if any needs arise. documented in this encounter Plan of Treatment Upcoming Encounters Date Type Specialty Care Team Description 09/02/2020 Scheduled Telephone [facility] Commercial Kitchen Service Technician, [facility] [place] [address] [phone] 2020 Scheduled Telephone [facility], Nurse [facility] [place] [address] [phone] 09/04/2020 Scheduled Telephone [facility], Nurse [facility] Lam[address] Garciagail [place] [address] [phone] 09/05/2020 Scheduled Telephone [facility] Commercial Kitchen Service Technician, [facility] [place] [address] [phone] 09/06/2020 Scheduled Telephone [facility] Commercial Kitchen Service Technician, [facility] [place] [address] [phone] 09/06/2020 Home Visit [facility] Corrina Layne RN [address] [place] [address] [phone] 09/07/2020 Scheduled Telephone [facility] Commercial Kitchen Service Technician, 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
--- OUTSIDE RECORDS SUMMARY | 2023-06-07 08:07 | External Medical Summary | Summary of Care ---
Author Name Unknown Organization [facility] Address [facility] [place] [address] Care Team Providers Care Commissioner Of Relocation Services Name Role Phone Yariel Cardoza MD Primary Care Provide r Reason for Visit * Reason Onset Date Comments [facility]: Maintenance 08/26/2020 Encounter Details Date Type Department Care Team Description 08/26/2020 Telephone [facility], [facility] 132 [facility] [place] [address] [facility], Nurse [facility] [address] [facility] [place] [address] [phone] [facility]: Maintenance Allergies Active Allergy Reactions Severity Noted Date Comments Adhesive Tape 06/29/2003 Sensitive to Naproxen Hives 05/28/2015 Ivp Dye Hives 08/20/2000 Latex Other (Please comment) 01/05/2015 Contact rash Ibuprofen Rash 01/05/2015 documented as of this encounter (statuses as of 08/26/2020) Medications Medication Sig Dispensed Refills Start Date [...] Take 0.4 mg by mouth daily. Per [facility] ER 0 06/09/2019 Active ondansetron (ZOFRAN) 4 MG Tablet Take 4 mg by mouth every 6 hours as needed for Nausea. Per [facility] ER 0 06/09/2019 Active Sennosides [...] other day, Reported on 05/08/2020 nystatin (NYSTOP) [id number] UNIT/GM powderIndications:C andidal skin infection Apply topically [...] as of this encounter (statuses as of 08/26/2020) Active Problems Problem Noted Date Moderate episode [...] as of this encounter (statuses as of 08/26/2020) Resolved Problems Problem Noted Date Resolved Date [...] as of this encounter (statuses as of 08/26/2020) Immunizations Name Administration Dates Next Due Pneumococcal [...] Telephone Encounter - Corrina Layne RN - 08/26/2020 3:02 PM EST Patient is aware of COVID+ results relayed previously. Reviewed COVID + protocol that she would be getting daily phone calls and monitoring. No connectivity in patient's home. Pt has her own pulse ox, thermometer and has tylenol on hand. Instructed to check pulse ox, temp 3 x daily and record. Pt asking if she should have xray since she has been using her nebulizer more. Spoke with [facility] provider, Marybeth DAWSON. Orders for mobile xray placed. Sent to [facility] historic sites supervisor to arrange. Tylenol PRN fever, headaches, body aches. Take in adequate fluids. Self quarantine x 14 days. States that grandson was first to test positive and he lives with them along with their daughter. Spouse's test pending results. Instructed to call [facility] 833# for increased sob, increased cough, n/v, diarrhea, any other changes, concerns or questions. Reviewed same with daughter, Sophia. Daily phone calls scheduled. * Telephone Encounter - Magda Arreola LPN - 08/26/2020 12:22 PM EST Cathy is requesting the results on her mother's COVID-19 testing. Please advise. Routed to PCP and care team. documented in this encounter Plan of Treatment Upcoming Encounters Date Type Specialty Care Team Description 08/27/2020 Scheduled Telephone [facility], [address] [place] [address] [phone] 08/28/2020 Scheduled Telephone [facility] [place], Nurse [facility] [place] [address] [phone] 08/29/2020 Scheduled Telephone [facility] Flower Buncher Or Picker, [facility] [place] [address] [phone] 08/30/2020 Scheduled Telephone [facility] Flower Buncher Or Picker, [facility] Lam[address] [place] [address] [phone] 08/31/2020 Scheduled Telephone [facility] Flower Buncher Or Picker, [facility] [place] [address] [phone] 09/01/2020 Scheduled Telephone [facility], Nurse [facility] [address] [place] [address] [phone] 09/02/2020 Scheduled Telephone [facility] Flower Buncher Or Picker, [place] [address] [address] [place] [address] [phone] 2020 Scheduled Telephone [facility], Nurse [facility] [address] [place] [place] [address] [phone] 09/04/2020 Scheduled Telephone [facility], Nurse [facility] Lam[address] [place] [address] [phone] 09/05/2020 Scheduled Telephone [facility] Flower Buncher Or Picker, [facility] [place] [address] [phone] 09/06/2020 Scheduled Telephone [facility] Flower Buncher Or Picker, [facility] Lam[address] [place] [place] [address] [phone] 09/06/2020 Home Visit [facility] Corrina Layne RN [address] [place] [address] [phone] 09/07/2020 Scheduled Telephone [facility] Flower Buncher Or Picker, [facility] Lam[address] [place] [address] [phone] 12/22/2020 Office Visit Internal Medicine Jade Castillo MD [address] [place] [address] [place] [address] Health Maintenance Due Date Last Done Comments [...] Documents on File Type Date Recorded Patient Successfactors Consultant Expl 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
--- OUTSIDE RECORDS SUMMARY | 2023-06-07 08:07 | External Medical Summary | Summary of Care ---
Author Name Unknown Organization [place] [address] Care Team Providers Care Supervisor Green End Department Name Role Phone Yariel Cardoza MD Primary Care Provide r Reason for Visit * Reason Onset Date Comments COVID-19 Screening 08/28/2020 Encounter Details Date Type Department Care Team Description 08/28/2020 Telephone COVID19 Screening [facility] [address] [place] [id number], Automated Provider COVID-19 Screening Allergies Active Allergy [...] Take 0.4 mg by mouth daily. Per [facility] ER 0 06/09/2019 Active ondansetron (ZOFRAN) 4 MG Tablet Take 4 mg by mouth every 6 hours as needed for Nausea. Per [facility] ER 0 06/09/2019 Active Sennosides [...] other day, Reported on 05/08/2020 nystatin (NYSTOP) [id number] UNIT/GM powderIndications:C andidal skin infection Apply topically [...] Miscellaneous Notes * Telephone Encounter - Saeed Olivarseid Results - 08/28/2020 12:04 AM EST Outreach Attempts IVR Call Aug 27 2020 9:57AM Answered - Failed to Authenticate IVR Call Aug 27 2020 1:03PM Answered - Failed to Authenticate IVR Call Aug 27 2020 6:51PM Answered - Failed to Authenticate Results COVID: Positive IVR Message: Unsuccessful contact, no education provided documented in this encounter Plan of Treatment Upcoming Encounters Date Type Specialty Care Team Description 08/28/2020 Scheduled Telephone [facility], Nurse [facility] Lamar Rodriguezil [place] [address] [phone] 08/29/2020 Scheduled Telephone [facility] Entertainment Director, [facility] [place] [address] [phone] 08/30/2020 Scheduled Telephone [facility] Entertainment Director, [facility] [place] [address] [phone] 08/31/2020 Scheduled Telephone [facility] Entertainment Director, [facility] [place] [address] [phone] 09/01/2020 Scheduled Telephone [facility], Nurse [place] [address] [address] [place] [address] [phone] 09/02/2020 Scheduled Telephone [facility] Entertainment Director, [place] [address] [address] [place] [address] [phone] 2020 Scheduled Telephone [facility], Nurse [facility] [place] [address] [phone] 09/04/2020 Scheduled Telephone [facility] Region, [facility] [place] [address] [phone] 09/05/2020 Scheduled Telephone [facility] Entertainment Director, [facility] [place] [address] [phone] 09/06/2020 Scheduled Telephone [facility] Entertainment Director, [place] [address] [place] [address] [phone] 09/06/2020 Home Visit [facility] Corrina Layne RN [address] [place] [address] [phone] 09/07/2020 Scheduled Telephone [facility] Entertainment Director, [facility] [address] [place] [address] [phone] 12/22/2020 Office Visit Internal Medicine Jade Castillo MD [address] [place] [address] [place] [address] [phone] Health Maintenance Due Date Last Done Comments [...] Documents on File Type Date Recorded 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
--- OUTSIDE RECORDS SUMMARY | 2023-06-07 08:07 | External Medical Summary | Summary of Care ---
Author Name Unknown Organization [place] [address] Care Team Providers Care Kids Club Attendant Name Role Phone Yariel Cardoza MD Primary Care Provide r Reason for Visit * Reason Onset Date Comments [facility]: Maintenance 08/27/2020 Encounter Details Date Type Department Care Team Description 08/27/2020 Scheduled Telephone [facility], [facility] [address] [facility] [place] [address] [facility], Nurse [facility] [address] [facility] [place] [address] [phone] Allergies Active Allergy Reactions Severity Noted Date Comments Adhesive Tape 06/29/2003 Sensitive to Naproxen Hives 05/28/2015 Ivp Dye Hives 08/20/2000 Latex Other (Please comment) 01/05/2015 Contact rash Ibuprofen Rash 01/05/2015 documented as of this encounter (statuses as of 08/27/2020) Medications Medication Sig Dispensed Refills Start Date [...] other day, Reported on 05/08/2020 nystatin (NYSTOP) [id number] UNIT/GM powderIndications:C andidal skin infection Apply topically [...] as of this encounter (statuses as of 08/27/2020) Active Problems Problem Noted Date Moderate episode [...] as of this encounter (statuses as of 08/27/2020) Resolved Problems Problem Noted Date Resolved Date [...] as of this encounter (statuses as of 08/27/2020) Immunizations Name Administration Dates Next Due Pneumococcal [...] encounter Miscellaneous Notes * Telephone Encounter - Rosibel York RN - 08/27/2020 12:29 PM EST Call to patient. - Tested +Covid Not able to get in touch with patient. Tried both house and cell phone. documented in this encounter Plan of Treatment Upcoming Encounters Date Type Specialty Care Team Description 08/28/2020 Scheduled Telephone [facility], Nurse [facility] Lam[address] [place] [address] [phone] 08/29/2020 Scheduled Telephone [facility] Rail Car Maintenance Mechanic, [facility] [place] [address] [phone] 08/30/2020 Scheduled Telephone [facility] Rail Car Maintenance Mechanic, [facility] [place] [address] [phone] 08/31/2020 Scheduled Telephone [facility] Rail Car Maintenance Mechanic, [facility] [place] [address] [phone] 09/01/2020 Scheduled Telephone [facility], Nurse [place] [address] [address] [place] [address] [phone] 09/02/2020 Scheduled Telephone [facility] Rail Car Maintenance Mechanic, [facility] Lam[address] Rodriguezil [place] [address] [phone] 2020 Scheduled Telephone [facility], Nurse [facility] [place] [address] [phone] 09/04/2020 Scheduled Telephone [facility] Region, [facility] [place] [address] [phone] 09/05/2020 Scheduled Telephone [facility] Rail Car Maintenance Mechanic, [facility] [place] [address] [phone] 09/06/2020 Scheduled Telephone [facility] Rail Car Maintenance Mechanic, [place] [address] [address] [place] [address] [phone] 09/06/2020 Home Visit [facility] Corrina Layne RN [address] [place] [address] [phone] 09/07/2020 Scheduled Telephone [facility] Rail Car Maintenance Mechanic, [facility] [address] [place] [address] [phone] 12/22/2020 Office Visit Internal Medicine Jade Castillo MD [address] [place] [address] [place] [address] [phone] Health Maintenance Due Date Last Done Comments [...] Documents on File Type Date Recorded 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
--- OUTSIDE RECORDS SUMMARY | 2023-06-07 08:07 | External Medical Summary | Summary of Care ---
Author Name Unknown Organization [place] [address] Care Team Providers Care Agriculture Professor Name Role Phone Yariel Cardoza MD Primary Care Provide r Reason for Visit * Reason Onset Date Comments [facility]: Maintenance 08/28/2020 Encounter Details Date Type Department Care Team Description 08/28/2020 Scheduled Telephone [facility], [facility] [address] [facility] [place] [address] [facility], Nurse [facility] [address] [facility] [place] [address] [phone] Allergies Active Allergy Reactions Severity Noted Date [...] other day, Reported on 05/08/2020 nystatin (NYSTOP) 053090 UNIT/GM powderIndications:C andidal skin infection Apply topically [...] encounter Miscellaneous Notes * Telephone Encounter - Yisel Giles RN - 08/28/2020 2:35 PM EST Current concerns: feeling better today, more concerned about her husbands condition right now. Problems/Symptoms: Patients current temperature no Highest recorded temperature within the last 24 hours 98.6 Use of antipyretics? tylenol Symptoms: body aches, less coughing Anticoagulation: Has the patient been started on anticoagulation due to COVID-19? no Treatment/Plan: Anticoagulation: N/A Test Results: Positive Yisel Giles RN Can Stacker Your test for COVID-19 came back as [...] ifthey have cold/flu symptoms, they should call [employer] COVID-19 hotline at [phone] and get tested for the virus. ? Treat your symptoms with zszr-kli-mfkofnc medications, such as Tylenol. ? If you develop new symptoms or your symptoms are worsening, call your Shingle Shearing Machine Operator/[facility] Intake Team/PCP for advice. If you begin to experience a medical emergency, call 911 and advise them that you have tested positive for COVID-19 ? If you are a [employer] staff member or employee, when you receive your result, please call [facility] between 7 a.m. and 4 p.m. at [phone]. Notify them of your test results and for instructions on returning to work after your quarantine period. ? Your primary care provider will be notified of your results. Contact them for follow-up care. documented in this encounter Plan of Treatment Upcoming Encounters Date Type Specialty Care Team Description 08/29/2020 Scheduled Telephone [facility] Refrigeration Mechanic, [facility] [place] [address] [phone] 08/30/2020 Scheduled Telephone [facility]hold Refrigeration Mechanic, [facility] [place] [address] [phone] 08/31/2020 Scheduled Telephone [facility] Household Refrigeration Mechanic, [facility] [place] [address] [phone] 09/01/2020 Scheduled Telephone [facility], Nurse [facility] Lamar Rodriguezil [place] [address] [phone] 09/02/2020 Scheduled Telephone [facility] Household Refrigeration Mechanic, [facility] [place] [address] [phone] 2020 Scheduled Telephone [facility], Nurse [facility] [place] [address] [phone] 09/04/2020 Scheduled Telephone [facility], Nurse [facility] [place] [address] [phone] 09/05/2020 Scheduled Telephone [facility]hold Refrigeration Mechanic, [facility] [place] [address] [phone] 09/06/2020 Scheduled Telephone [facility]hold Refrigeration Mechanic, [facility] [place] [address] 09/06/2020 Home Visit [facility] Corrina Layne RN [address] [place] [address] [phone] 09/07/2020 Scheduled Telephone [facility] Refrigeration Mechanic, [facility] [address] [place] [address] [phone] 12/22/2020 Office Visit Internal Medicine Jade Castillo MD [address] [place] [address] [place] [address] [phone] Health Maintenance Due Date Last Done Comments [...] Documents on File Type Date Recorded 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
--- OUTSIDE RECORDS SUMMARY | 2023-06-07 08:07 | External Medical Summary | Summary of Care ---
Author Name Unknown Organization [place] [address] Care Team Providers Care Job Change Crew Member Name Role Phone Yariel Cardoza MD Primary Care Provide r Reason for Visit * Reason Onset Date Comments [facility]: Acute 08/26/2020 Encounter Details Date Type Department Care Team Description 08/26/2020 Telephone [facility], [facility] [address] [facility] [place] [address] [facility], Nurse [facility] [address] [facility] [place] [address] [phone] [facility]: Acute Allergies Active Allergy [...] Take 0.4 mg by mouth daily. Per [facility] ER 0 06/09/2019 Active ondansetron (ZOFRAN) 4 MG Tablet Take 4 mg by mouth every 6 hours as needed for Nausea. Per [facility] ER 0 06/09/2019 Active [...] other day, Reported on 05/08/2020 nystatin (NYSTOP) 925248 UNIT/GM powderIndications:C andidal skin infection Apply topically [...] encounter Miscellaneous Notes * Telephone Encounter - Jazmin Rogers RN - 08/26/2020 2:00 PM EST Phone call from Jad irizarry, asking if patient's COVID test was completed and wanted to know the results. Made aware that test Results: Positive Patient states she feels better today that she did a few days ago, c/o dry mouth, some dizziness that comes and goes, some body aches, afebrile, no cough, - sob, - taste sensation. Your test for COVID-19 came back as [...] ifthey have cold/flu symptoms, they should call [employer] COVID-19 hotline at [phone] and get tested for the virus. ? Treat your symptoms with ojhg-ofj-jhwlzkg medications, such as Tylenol. ? If you develop new symptoms or your symptoms are worsening, call your Systems Software Designer/[facility] Intake Team/PCP for advice. If you begin to experience a medical emergency, call 911 and advise them that you have tested positive for COVID-19 ? If you are a [employer] staff member or employee, when you receive your result, please call [employer] between 7 a.m. and 4 p.m. at [phone]. Notify them of your test results and for instructions on returning to work after your quarantine period. ? Your primary care provider will be notified of your results. Contact them for follow-up care. Patient encouraged to call with all urgent but not emergent issues. Will add daily phone calls until 09/07/20 Scheduled to follow up with patient in one day. CHRIS Tam Social Work Specialist [facility] documented in this encounter Plan of Treatment Upcoming Encounters Date Type Specialty Care Team Description 08/27/2020 Scheduled Telephone [facility], Nurse [place] [address] [place] [address] [phone] 08/28/2020 Scheduled Telephone [facility], [facility] Lamar Garciagail [place] [address] [phone] 08/29/2020 Scheduled Telephone [facility] Enrichment Teacher, [facility] [place] [address] [phone] 08/30/2020 Scheduled Telephone [facility] Enrichment Teacher, [facility] Lamar Garciagail [place] [address] [phone] 08/31/2020 Scheduled Telephone [facility] Enrichment Teacher, [facility] [place] [address] [phone] 09/01/2020 Scheduled Telephone [facility], [facility] [place] [address] [phone] 09/02/2020 Scheduled Telephone [facility] Enrichment Teacher, [facility] Lamar Rodriguezil [place] [address] [phone] 2020 Scheduled Telephone [facility], [facility] [place] [address] [phone] 09/04/2020 Scheduled Telephone [facility], [facility] [place] [address] [phone] 09/05/2020 Scheduled Telephone [facility] Enrichment Teacher, [address] [place] [address] [phone] 09/06/2020 Scheduled Telephone [facility] Enrichment Teacher, [place] [address] [address] [place] [address] [phone] 09/06/2020 Home Visit [facility] Corrina Layne RN 132 [facility] [place] [address] [phone] 09/07/2020 Scheduled Telephone [facility] Enrichment Teacher, [address] [place] [address] [phone] 12/22/2020 Office Visit Internal Medicine Jade Castillo MD [address] [place] [address] [place] [address] [phone] Health Maintenance Due Date Last Done Comments [...] Documents on File Type Date Recorded 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
--- OUTSIDE RECORDS SUMMARY | 2023-06-07 08:07 | External Medical Summary | Summary of Care ---
Author Name Unknown Organization [facility] Address [facility] [place] [address] Care Team Providers Care Dental Technologist Name Role Phone Yariel Cardoza MD Primary Care Provide r Reason for Visit * Reason Onset Date Comments [facility]: Maintenance 08/26/2020 Encounter Details Date Type Department Care Team Description 08/26/2020 Telephone [facility], [facility] 132 [facility] [place] [address] [facility], Nurse [facility] [address] [facility] [place] [address] [phone] [facility]: Maintenance Allergies Active Allergy [...] other day, Reported on 05/08/2020 nystatin (NYSTOP) 483436 UNIT/GM powderIndications:C andidal skin infection Apply topically [...] ox, temp 3 x daily and record. Tylenol PRN fever, headaches, body aches. Take in adequate fluids. Instructed to call [facility] 833# for increased sob, increased cough, n/v, [...] Scheduled Telephone [facility], Nurse [facility] [place] [address] [phone] 08/28/2020 Scheduled Telephone [facility], Nurse [facility] [place] [address] [phone] 08/29/2020 Scheduled Telephone [facility] Pump Stitcher, [facility] [place] [address] [phone] 08/30/2020 Scheduled Telephone [facility] Pump Stitcher, [facility] [place] [address] [phone] 08/31/2020 Scheduled Telephone [facility] Pump Stitcher, [facility] [place] [address] [phone] 09/01/2020 Scheduled Telephone [facility], Nurse [facility] [place] [address] [phone] 09/02/2020 Scheduled Telephone [facility] Pump Stitcher, [facility] Lamar Rodriguezil [place] [address] [phone] 2020 Scheduled Telephone [facility], Nurse [facility] Lamar Garciagail [place] [address] [phone] 09/04/2020 Scheduled Telephone [facility], Nurse [facility] Lamar Garciagail [place] [address] [phone] 09/05/2020 Scheduled Telephone [facility] Pump Stitcher, [facility] Lamar Garciagail [place] [address] [phone] 09/06/2020 Scheduled Telephone [facility] Pump Stitcher, [facility] Lamar Garciagail [place] [address] [phone] 09/06/2020 Home Visit [facility] Corrina Layne RN [address] [place] [address] [phone] 09/07/2020 Scheduled Telephone [facility] Pump Stitcher, [place] [address] [address] [place] [address] [phone] 12/22/2020 Office Visit Internal Medicine Jade Castillo MD [address] [place] [address] [place] [address] [phone] Health Maintenance Due Date Last Done Comments [...] Documents on File Type Date Recorded 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
--- OUTSIDE RECORDS SUMMARY | 2023-06-07 08:07 | External Medical Summary | Summary of Care ---
Author Name Unknown Organization [place] [address] Care Team Providers Care Track Inspecting Supervisor Name Role Phone Yariel Cardoza MD Primary Care Provide r Reason for Visit * Reason Onset Date Comments [facility]: Acute 08/26/2020 Encounter Details Date Type Department Care Team Description 08/26/2020 Telephone [facility], [facility] 132 [facility] [place] [address] [facility], Nurse [facility] [address] [facility] [place] [address] [phone] [facility]: Acute Allergies Active Allergy [...] other day, Reported on 05/08/2020 nystatin (NYSTOP) 585607 UNIT/GM powderIndications:C andidal skin infection Apply topically [...] ifthey have cold/flu symptoms, they should call [employer] COVID-19 hotline at [phone] and get tested for the virus. ? Treat your symptoms with ozch-zqd-mgbhlrc medications, such as Tylenol. ? If you develop new symptoms or your symptoms are worsening, call your Patient Biller/[facility] Intake Team/PCP for advice. If you begin to experience a medical emergency, call 911 and advise them that you have tested positive for COVID-19 ? If you are a [employer] staff member or employee, when you receive your result, please call [employer] between 7 a.m. and 4 p.m. at [phone]. Notify them of your test results and for instructions on returning to work after your quarantine period. ? Your primary care provider will be notified of your results. Contact them for follow-up care. Patient encouraged to call with all urgent but not emergent issues. Will add daily phone calls until 09/07/20 Scheduled to follow up with patient in one day. CHRIS Tam Circular Knife Cutter Machine [facility] documented in this encounter Plan of Treatment Upcoming Encounters Date Type Specialty Care Team Description 08/27/2020 Scheduled Telephone [facility], Nurse [place] [address] [place] [address] [phone] 08/28/2020 Scheduled Telephone [facility], [facility] Lamar Garciagail [place] [address] [phone] 08/29/2020 Scheduled Telephone [facility] Drama Teacher, [facility] [place] [address] [phone] 08/30/2020 Scheduled Telephone [facility] Drama Teacher, [facility] Lamar Garc[place]ail [place] [address] [phone] 08/31/2020 Scheduled Telephone [facility] Drama Teacher, [facility] [place] [address] [phone] 09/01/2020 Scheduled Telephone [facility], [facility] [place] [address] [phone] 09/02/2020 Scheduled Telephone [facility] Drama Teacher, [facility] Lamar Rodriguezil [place] [address] [phone] 2020 Scheduled Telephone [facility], [facility] [place] [address] [phone] 09/04/2020 Scheduled Telephone [facility], [facility] [place] [address] [phone] 09/05/2020 Scheduled Telephone [facility] Drama Teacher, [address] [place] [address] [phone] 09/06/2020 Scheduled Telephone [facility] Drama Teacher, [place] [address] [address] [place] [address] [phone] 09/06/2020 Home Visit [facility] Corrina Layne RN 132 [facility] [place] [address] [phone] 09/07/2020 Scheduled Telephone [facility] Drama Teacher, [address] [place] [address] [phone] 12/22/2020 Office Visit Internal Medicine Jade Castillo MD [address] [place] [address] [place] [address] [phone] Health Maintenance Due Date Last Done Comments [...] Documents on File Type Date Recorded 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
--- OUTSIDE RECORDS SUMMARY | 2023-06-07 08:07 | External Medical Summary | Summary of Care ---
Author Name Unknown [place] [address] Care Team Providers Care Nondestructive Tester Name Role Phone Yariel Cardoza MD Primary Care Provide r Reason for Visit * Reason Onset Date Comments COVID-19 Screening 08/27/2020 Encounter Details Date Type Department Care Team Description 08/27/2020 Telephone COVID19 Screening [facility] [address] [place] [id number], Automated Provider COVID-19 Screening Allergies Active Allergy [...] Take 0.4 mg by mouth daily. Per [facility] ER 0 06/09/2019 Active ondansetron (ZOFRAN) 4 MG Tablet Take 4 mg by mouth every 6 hours as needed for Nausea. Per [facility] 0 06/09/2019 Active Sennosides [...] other day, Reported on 05/08/2020 nystatin (NYSTOP) 647953 UNIT/GM powderIndications:C andidal skin infection Apply topically [...] Telephone Encounter - Saeed Olivaresid Results - 08/27/2020 1:05 AM EST Outreach Attempts IVR Call Aug 26 2020 10:46AM Answered - Failed to Authenticate IVR Call Aug 26 2020 1:35PM Answered - Failed to Authenticate IVR Call Aug 26 2020 7:19PM Answered - Failed to Authenticate Results COVID: Positive IVR Message: Unsuccessful contact, no education provided documented in this encounter Plan of Treatment Upcoming Encounters Date Type Specialty Care Team Description 08/27/2020 Scheduled Telephone [facility], Nurse [place] [address] [address] [place] [address] [phone] 08/28/2020 Scheduled Telephone [facility], Nurse [facility] [place] [address] [phone] 08/29/2020 Scheduled Telephone [facility] Pizza Hut Team Member, [facility] [place] [address] [phone] 08/30/2020 Scheduled Telephone [facility] [employer] Team Member, [facility] [place] [address] [phone] 08/31/2020 Scheduled Telephone [facility] [employer] Team Member, [facility] [place] [address] [phone] 09/01/2020 Scheduled Telephone [facility], Nurse [place] [address] [address] [place] [address] [phone] 09/02/2020 Scheduled Telephone [facility] [employer] Team Member, [facility] [place] [address] [phone] 2020 Scheduled Telephone [facility], [facility] [place] [address] [phone] 09/04/2020 Scheduled Telephone [facility], Nurse [facility] [place] [address] [phone] 09/05/2020 Scheduled Telephone [facility] [employer] Team Member, [place] [address] [address] [place] [address] [phone] 09/06/2020 Scheduled Telephone [facility] [employer] Team Member, [facility] [address] [place] [address] [phone] 09/06/2020 Home Visit [facility] Corrina Layne RN [address] [place] [address] [phone] 09/07/2020 Scheduled Telephone [facility] [employer] Team Member, [facility] [address] [place] [address] [phone] 12/22/2020 Office Visit Internal Medicine Jade Castillo MD [address] [place] [address] [place] [address] [phone] Health Maintenance Due Date Last Done Comments [...] Documents on File Type Date Recorded 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
--- OUTSIDE RECORDS SUMMARY | 2023-06-07 08:08 | External Medical Summary ---
Author Name Unknown Address Unknown Organization [facility]:IT USE ONLY!!! 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
--- OUTSIDE RECORDS SUMMARY | 2023-06-07 08:08 | External Medical Summary | Summary of Care ---
Author Name Unknown Organization [place] [address] Care Team Providers Care Community Relations Police Lieutenant Name Role Phone Yariel Cardoza MD Primary Care Provide r Reason for Visit * Reason Comments Follow Up skin tag removal Encounter Details Date Type Department Care Team Description 08/11/2020 Office Visit Dermatology [facility] [address] [place] [address] Kirstie Mcclain MD [address] [place] [address] Skin tag*; Inflamed seborrheic keratosis Allergies Active Allergy Reactions Severity Noted Date Comments Adhesive Tape 06/29/2003 Sensitive to Naproxen Hives 05/28/2015 Ivp Dye Hives 08/20/2000 Latex Other (Please comment) 01/05/2015 Contact rash Ibuprofen Rash 01/05/2015 documented as of this encounter (statuses as of 08/11/2020) Medications Medication Sig Dispensed Refills Start Date [...] other day, Reported on 05/08/2020 nystatin (NYSTOP) 291937 UNIT/GM powderIndications:C andidal skin infection Apply topically [...] as of this encounter (statuses as of 08/11/2020) Active Problems Problem Noted Date Moderate episode [...] as of this encounter (statuses as of 08/11/2020) Resolved Problems Problem Noted Date Resolved Date [...] as of this encounter (statuses as of 08/11/2020) Immunizations Name Administration Dates Next Due Pneumococcal Conjugate Vacc, 13 Valent (Prevnar) 09/21/2015 Pneumococcal Polysaccharide PPV23 (Pneumovax) Seasonal Influenza, Quadriva lent, No Preserve, 6 Mons & Above, IM 07/28/2018,07/31/2017 Seasonal Influenza, Quadrivalent, No Preserve, I M [...] on file documented as of this encounter Patient Instructions * Patient Instructions* Kirstie Mcclain MD - 08/11/2020 9:08 AM EST WHAT TO EXPECT FOLLOWING CRYOSURGERY (liquid nitrogen) TREATMENT: The treated area may get wet - gentle washing, bathing and swimming are permitted. Within the next 1-24 hours the treated area will begin to develop some swelling, redness and sometimes a blister. The blister may be very small and not noticeable or occasionally quite large, particularly if a wart was treated or if a large area was treated. In some cases the blister may be a blood blister giving a purple or reddish-brown appearance to the area. This is to be expected and is not cause for concern. If the blister is large and painful it is ok to estefania the blister witha needle or pin (cleansed with alcohol) to let out the fluid and relieve the pressure. If you have discomfort in the treated area, the most helpful treatment is to soak it in warm water.Tylenol or ibuprofen may be taken if necessary. Otherwise, leave the area alone and let it dry up over the next 1-3 weeks to a scab or crust. Allowit to fall off by itself. During this time the area may get wet and no special care is needed. If desired, you may cover it with a Band-Aid. If the blister is rubbed off accidentally in the first 1 to 5 days, apply polysporin ointment or other antibiotic ointment (available without a prescription at the drug store) to the area twice dailyand cover with a Band-Aid. Continue for 5 to 6 days. If you have questions please call the office. documented in this encounter Progress Notes * Kirstie Mcclain MD - 08/11/2020 8:45 AM EST HPI: Jayla Hayes is a 74 year old female. Skin tags on the central back and right antecubital fossa x months, pt would like removed Growths on the chest x few years, several are itching and would like removed PHM: Patient Active Problem List Diagnosis Code [...] Dispense Refill hydroCHLOROthiazide 25 MG Oral Tablet (HYDRODIURIL) TAKE 1 TABLET BY MOUTH EVERY DAY 90 Tab 2 predniSONE 10 MG Oral Tablet (DELTASONE) Take 5 tabs for 2 days, 4 tabs for 2 days, 3 tabs for 2 days, 2 tabs for 2 days 1 tab for 2 days 30 Tab 0 omeprazole (PRILOSEC) 20 MG CPDR Take 2 Caps by mouth daily. 180 Cap 1 fluconazole (DIFLUCAN) 150 MG Tablet 1 tab weekly x 4 weeks 4 Tab 0 amLODIPine (NORVASC) 2.5 MG Tablet TAKE 1 TABLET BY MOUTH EVERY DAY 90 Tab 3 albuterol-ipratropium (DUONEB) 2.5-0.5 MG/3ML nebulizer solution INHALE 3 MLS VIA NEBULIZER EVERY 4HOURS NEEDED FOR COUGH, SHORTNESS OF BREATH OR WHEEZING. 360 mL 1 furosemide (LASIX) 20 MG Tablet TAKE 1 TABLET BY MOUTH DAILY NEEDED (SWELLING). FOR FLUID ACCUMULATION OR WEIGHT GAIN 30 Tab 5 Probiotic Product ([employer] ADV PROBIOTIC GUMMIES) CHEW Take 2 Gum Dosing Unit by mouth. sertraline (ZOLOFT) 50 MG Tablet Take 1 Tab by mouth daily. 30 Tab 5 zoster vac recomb adjuvanted (SHINGRIX) 50 MCG/0.5ML injection Inject 0.5 mL into a large muscle now and repeat dose in 60 to 180 days 1 Each 1 nystatin (NYSTOP) 370215 UNIT/GM powder Apply topically to affected area 3 times a day. Apply to the affected area 45 g 1 atorvaSTATin (LIPITOR) 20 MG Tablet TAKE 1 TABLET BY MOUTH EVERY DAY (Patient taking differently: 20 mg. Every other day) 90 Tab 2 amitriptyline (ELAVIL) 25 MG Tablet TAKE 1 TABLET BY MOUTH EVERYDAY AT BEDTIME 90 Tab 3 atenolol (TENORMIN) 25 MG Tablet TAKE 1 TABLET BY MOUTH EVERY DAY 90 Tab 3 potassium chloride ER 10 MEQ TBCR TAKE [...] for Nausea. Per [facility] tamsulosin (FLOMAX) 0.4 MG Capsule Take 0.4 mg by mouth daily. Per [facility] meclizine (ANTIVERT) 25 MG Tablet TAKE 1 TABLET BY MOUTH ONCE EVERY 6 HOURS NEEDED FOR DIZZINESS/VERTIGO 10 Tab 0 fluticasone (FLONASE) 50 MCG/ACT nasal spray Administer 2 Sprays into each nostril daily. 1 Inhaler5 dicyclomine (BENTYL) 10 MG Capsule Take 1 Cap by mouth 4 times a day as needed (abdominal pain, cramping). for abdominal pain 120 Cap 5 Dextromethorphan-guaiFENesin [...] L/min(Oxygen) as directed continuous. 1 Each 0 Review of patient's allergies indicates: Allergen Reactions Adhesive Tape Sensitive to Aleve [Naproxen] Hives Ivp Dye Hives Latex Other (Please comment) Contact rash Motrin [Ibuprofen] Rash Objective: General: alert, healthy and no distress Skin:1 . Flesh-colored pedunculated papule on the central back and right antecubital fossa 2. brown keratotic plaque with a stuck on appearance and horn cysts present between the breasts, right anterior shoulder and left lower breast. ASSESSMENT/PLAN: 1. Skin tags-Removal of the 2 lesion noted above. The procedure, risks, benefits, alternatives and expected outcomes were discussed with the patient and verbal consent was obtained. Time out called. Patient identified, procedure verified, site identified and verified. Patient and staff present in agreement. Area prepped with alcohol and anesthetized with 0.5% lidocaine with epinephrine at 1:200,000 concentration. Snip removal with scissors performed. 20% AlCl and bandaging applied. Patient instructed in routine post-op care. COSMETIC FEE $20 CHARGED AT TIME OF SERVICE 2. Inflamed seborrheic keratosis-Cryosurgery explained to the patient, consent obtained, patient, site and procedure verified, and then cryotherapy was performed with Liquid Nitrogen via cryo spray unit to 6 lesions. Location noted in physical exam. Post op course explained. Follow up as needed. Kirstie Mcclain MD documented in this encounter Nursing Notes * Nancy Abdullahi LPN - 08/11/2020 8:42 AM EST Chief Complaint Patient presents with Follow Up skin tag removal documented in this encounter Plan of Treatment Upcoming Encounters Date Type Specialty Care Team Description 08/12/2020 Immunization/Injecti o n [facility] [address] [place] [address] [phone] 09/06/2020 Home Visit [facility] Corrina Layne RN [address] [place], [place] [address] [address] [phone] 12/22/2020 Office Visit Internal Medicine Jade Castillo MD [address] [place] [address] [place] [address] [phone] Scheduled Orders Name Type Priority Associated Diagnoses Orde r Schedule REMOVAL OF SKIN TAGS, UP TO 15 Procedures Routine Skin tag Ordered: 08/11/2020 BENIGN LESION DESTRUCTION, UP TO 14 LESIONS Procedures Routine Inflamed seborrheic keratosis Ordered: 08/11/2020 Health Maintenance Due Date Last Done Comments Zoster Vaccines (1 of 2) 1993 *ADVANCE DIRECTIVE NOT ON FILE 12/23/2015 Influenza Vaccine (FLU shot) (#1) 2020 07/10/2019, 07/10/2019, 07/28/2018, Additional history exists *O2 ASSESSMENT COMPLETED IN PAST YEAR FOR COPD 08/10/2020 COLONOSCOPY-EVERY 3 YRS AGES 18-100 03/26/2021 03/26/2018, 03/08/2015 Dexa Scan 08/17/2022 08/17/2015 DIABETES SCREEN EVERY 3 YRS-AGE 45 AND ABOVE 05/06/2023 05/06/2020, 08/18/2019, 08/09/2019, Additional history exists DTaP,Tdap,and Td Vaccines (2 - Td) 04/19/2028 04/19/2018, 05/03/2004, 05/03/2004 Pneumococcal Vaccine: 65+ Years Completed 03/28/2017, 09/21/2015 MENINGOCOCCAL (MENACTRA/MENVEO) Aged Out No longer eligible based on patient's age to complete this topic documented as of this encounter Implants Not on filedocumented as of this encounter Visit Diagnoses Diagnosis Skin tag- Primary Unspecified hypertrophic and atrophic condition of skin Inflamed seborrheic keratosis documented in this encounter Advance Directives Documents on File Type Date Recorded 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
--- OUTSIDE RECORDS SUMMARY | 2023-06-07 08:08 | External Medical Summary | Summary of Care ---
Author Name Unknown Organization [facility] Address [facility] [place] [address] Care Team Providers Care Press Service Reader Name Role Phone Yariel Cardoza MD Primary Care Provide r Reason for Visit * Reason Onset Date Comments [facility]: Maintenance 08/26/2020 Encounter Details Date Type Department Care Team Description 08/26/2020 Telephone [facility] [address] [facility] [place] [address] [facility], Nurse [facility] [address] [facility] [place] [address] [phone] [facility]: Maintenance Allergies Active Allergy [...] other day, Reported on 05/08/2020 nystatin (NYSTOP) [id number] UNIT/GM powderIndications:C andidal skin infection Apply topically [...] Magda Arreola LPN - 08/26/2020 12:22 PM TREVON Morgan is requesting the results on her mother's COVID-19 testing. Please advise. Routed to PCP and care team. 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
--- OUTSIDE RECORDS SUMMARY | 2023-06-07 08:08 | External Medical Summary | Summary of Care ---
Author Name Unknown Organization [place] [address] Care Team Providers Care Spectroscopist Name Role Phone Yariel Cardoza MD Primary Care Provide r Reason for Visit * Reason Comments Medical Nutrition Therapy Encounter Details Date Type Department Care Team Description 08/10/2020 Nutrition Services [facility], [place] [address] [facility] [place] [address] Haley Davidson RDN [address] [place] [address] [phone] IBS (irritable bowel syndrome)*; COPD, severe (HCC) Allergies Active Allergy Reactions Severity Noted Date Comments Adhesive Tape 06/29/2003 Sensitive to Naproxen Hives 05/28/2015 Ivp Dye Hives 08/20/2000 Latex Other (Please comment) 01/05/2015 Contact rash Ibuprofen Rash 01/05/2015 documented as of this encounter (statuses as of 08/10/2020) Medications Medication Sig Dispensed Refills Start Date [...] other day, Reported on 05/08/2020 nystatin (NYSTOP) [id number] UNIT/GM powderIndications:C andidal skin infection Apply topically [...] as of this encounter (statuses as of 08/10/2020) Active Problems Problem Noted Date Moderate episode [...] as of this encounter (statuses as of 08/10/2020) Resolved Problems Problem Noted Date Resolved Date [...] as of this encounter (statuses as of 08/10/2020) Immunizations Name Administration Dates Next Due Pneumococcal [...] as of this encounter Progress Notes * Haley Davidson RDN - 08/10/2020 2:14 PM EST NUTRITION PROGRESS NOTE [facility] TELEPHON[facility] [place] Patient Phone Numbers: [phone] Call placed to pt at 3:06 PM as follow-up nutrition visit. Pt denies any issues related to diet or GI intolerance at this time. Pt denies any diarrhea/constipation at this time. Taking Metamucil as ordered. Pt tolerating low sodium, heart healthy diet. No recent weights available to assess. Previous Nutrition Goals: Patient will demonstrate or verbalize knowledge of diet---met Recommend low sodium, high fiber diet Maintain adequate hydration Reinforced nutrition goals. Pt to reach out to [facility] RDN if questions/concerns arise. Encouraged pt to contact [facility] at [phone] for any non-emergent changes/concerns. Haley Davidson MS, RDN, LDN Clinical Dietitian [facility] Text/ documented in this encounter Plan of Treatment Upcoming Encounters Date Type Specialty Care Team Description 08/11/2020 Office Visit [facility] [address] [facility] [address] [phone] 08/12/2020 Immunization/Injecti o n [facility] [place] [address] [place] [address] [phone] 09/06/2020 [facility] [place] [facility] [address] [phone] 12/22/2020 Office Visit Internal Medicine Jade Castillo MD [address] [place] [address] [place] [address] [phone] Health Maintenance Due Date Last Done Comments [...] as of this encounter Visit Diagnoses Diagnosis IBS (irritable bowel syndrome)- Primary Irritable bowel syndrome COPD, severe (HCC) Chronic airway obstruction, not elsewhere classified documented in this encounter Advance Directives Documents on File Type Date Recorded 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
--- OUTSIDE RECORDS SUMMARY | 2023-06-07 08:08 | External Medical Summary | Summary of Care ---
Author Name Unknown Organization [place] [address] Care Team Providers Care Color Shop Helper Name Role Phone Yariel Cardoza MD Primary Care Provide r Reason for Visit * Reason Onset Date Comments COVID-19 Screening 08/24/2020 Encounter Details Date Type Department Care Team Description 08/24/2020 Pandemic Screening COVID19 Screening, [address] [place] [address] [facility] Covid19 Screening [address] [place] [address] Suspected 2019 novel coronavirus infection* Allergies Active Allergy Reactions Severity Noted Date Comments Adhesive Tape 06/29/2003 Sensitive to Naproxen Hives 05/28/2015 Ivp Dye Hives 08/20/2000 Latex Other (Please comment) 01/05/2015 Contact rash Ibuprofen Rash 01/05/2015 documented as of this encounter (statuses as of 08/24/2020) Medications Medication Sig Dispensed Refills Start Date [...] other day, Reported on 05/08/2020 nystatin (NYSTOP) [id number] UNIT/GM powderIndications:C andidal skin infection Apply topically [...] as of this encounter (statuses as of 08/24/2020) Active Problems Problem Noted Date Moderate episode [...] as of this encounter (statuses as of 08/24/2020) Resolved Problems Problem Noted Date Resolved Date [...] as of this encounter (statuses as of 08/24/2020) Immunizations Name Administration Dates Next Due Pneumococcal [...] as of this encounter Progress Notes * Josie Ryan PA-C - 08/24/2020 9:12 AM EST Pt here with cough, fever, chills for the past few days. Pt denies exposure. Travel Screening No screening recorded since 08/23/20 0000 Travel History Travel since 07/24/20 No documented travel since 07/24/20 Pt in no acute distress. Pt speaking and ambulating with no issue. Covid NT swab performed. Pt instructed to self isolate until results are back. ER if sx worsen. Pt given handouts upon checking out COVID-19 Suspected based on symptoms and exposure Testing ordered COVID 19 Testing Josie Ryan PA-C documented in this encounter Plan of Treatment Upcoming Encounters Date Type Specialty Care Team Description 09/06/2020 Home Visit [facility] Corrina Layne RN [address] [facility] [place] [address] 12/22/2020 Office Visit Internal Medicine Jade Castillo MD [address] [place] [address] [place] [address] [phone] Scheduled Orders Name Type Priority Associated Diagnoses Orde r Schedule COVID-19 Lab Routine Suspected 2019 novel coronavirus infection Ordered: 08/24/2020 Health Maintenance Due Date Last Done Comments [...] as of this encounter Visit Diagnoses Diagnosis Suspected 2019 novel coronavirus infection- Primary documented in this encounter Advance Directives Documents on File Type Date Recorded Patient Lvn Expl 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 Advanced Directive Advanced Directive Advanced Directive Advanced Directive Advanced Directive Advanced Directive Advanced Directive Advanced Directive
--- OUTSIDE RECORDS SUMMARY | 2023-06-07 08:08 | External Medical Summary | Summary of Care ---
Author Name Unknown Organization [place] [address] Care Team Providers Care Licensed Club Manager Name Role Phone Yariel Cardoza MD Primary Care Provide r Reason for Visit * Reason Onset Date Comments Medication Administration 08/12/2020 Flu an d/or Pneumo Inj Encounter Details Date Type Department Care Team Description 08/12/2020 Immunization/In jection Ancillary [address] [place] [address] [place] [address] [place] [id number] Need for prophylactic vaccination and inoculation against influenza* Allergies Active Allergy Reactions Severity Noted Date Comments Adhesive Tape 06/29/2003 Sensitive to Naproxen Hives 05/28/2015 Ivp Dye Hives 08/20/2000 Latex Other (Please comment) 01/05/2015 Contact rash Ibuprofen Rash 01/05/2015 documented as of this encounter (statuses as of 08/12/2020) Medications Medication Sig Dispensed Refills Start Date [...] Take 0.4 mg by mouth daily. Per [facility] 0 06/09/2019 Active ondansetron (ZOFRAN) 4 MG Tablet Take 4 mg by mouth every 6 hours as needed for Nausea. Per [facility] 0 06/09/2019 Active Sennosides (SENNA) 8.6 [...] other day, Reported on 05/08/2020 nystatin (NYSTOP) [id number] UNIT/GM powderIndications:C andidal skin infection Apply topically [...] as of this encounter (statuses as of 08/12/2020) Active Problems Problem Noted Date Moderate episode [...] as of this encounter (statuses as of 08/12/2020) Resolved Problems Problem Noted Date Resolved Date [...] as of this encounter (statuses as of 08/12/2020) Immunizations Name Administration Dates Next Due Pneumococcal [...] as of this encounter Progress Notes * Courtney Montiel LPN - 08/12/2020 10:29 AM EST PRE - ADMINISTRATION DOCUMENTATION Are you allergic to latex? No Are you experiencing any cold symptoms or fever? No Have you had Guillain-[place] Syndrome (an illness that causes paralysis) within the last 6 weeks? No Have you had the flu shot in the past? YES Have you ever had a reaction to the flu shot? No Courtney Montiel LPN, 08/12/2020 10:29 AM Immunization Administration Documentation Time Out Procedure Performed: Yes Patient Identified (Ask Name/Date of ): Yes Does the patient have a fever greater than 101 degrees today? No Patient allergic to latex? No VFC Stock: No Immunization(s) verified: Yes, Immunization Name: Flu, VIS Sheet(s) given: Yes Verified Side and Site: Yes Verified Shot(s) with Parent(s)/Patient: Yes documented in this encounter Plan of Treatment Upcoming Encounters Date Type Specialty Care Team Description 09/06/2020 [facility] Visit [facility] Corrina Layne RN [address] [facility] [place] [address] [phone] 12/22/2020 Office Visit Internal Medicine Jade Castillo MD [address] [place] [address] [place] [address] [phone] Health Maintenance Due Date Last Done Comments [...] prophylactic vaccination and inoculation against influenza- Primary documented in this encounter Advance Directives Documents on File Type Date Recorded 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
--- OUTSIDE RECORDS SUMMARY | 2023-06-07 08:09 | External Medical Summary | Summary of Care ---
Author Name Unknown Organization [place] [address] Care Team Providers Care Podiatric Physician Name Role Phone Yarile Cardoza MD Primary Care Provide r Reason for Visit * Reason Comments [facility]: Maintenance Encounter Details Date Type Department Care Team Description 06/02/2020 Scheduled Telephone [facility], [facility] [address] [place] [address] Corrina Layne RN [address] [facility] [place] [address] [phone] Allergies Active Allergy Reactions Severity Noted Date Comments Adhesive Tape 06/29/2003 Sensitive to Naproxen Hives 05/28/2015 Ivp Dye Hives 08/20/2000 Latex Other (Please comment) 01/05/2015 Contact rash Ibuprofen Rash 01/05/2015 documented as of this encounter (statuses as of 06/05/2020) Medications Medication Sig Dispensed Refills Start Date End Date Status polyethylene glycol 3350 (MIRALAX) 255 gram powder Take 17 g by mouth daily. Two-three times per week 255 g 0 09/27/2016 Active oxygen GASIndications:Hypo bryan Use 2 L/min(Oxygen) as [...] by mouth daily. Per [facility] 0 06/09/2019 Active ondansetron (ZOFRAN) 4 MG Tablet Take 4 mg by mouth every 6 hours as needed for Nausea. Per [facility] 0 06/09/2019 Active Sennosides (SENNA) 8.6 [...] mg, Every other day, Reported on 05/08/2020 10:51 AM hydroCHLOROthiazide (HYDRODIURIL) 25 MG Tablet TAKE 1 TABLET BY MOUTH EVERY DAY 90 Tab 1 01/21/2020 Active nystatin (NYSTOP) 625341 UNIT/GM powderIndications:C andidal skin infection Apply topically [...] 4 weeks 4 Tab 0 05/08/2020 Active documented as of this encounter (statuses as of 06/05/2020) Active Problems Problem Noted Date Moderate episode [...] as of this encounter (statuses as of 06/05/2020) Resolved Problems Problem Noted Date Resolved Date [...] as of this encounter (statuses as of 06/05/2020) Immunizations Name Administration Dates Next Due Pneumococcal [...] file Not on file Not on file Travel History Travel Start Travel End COVID-19 Exposure Response Date Recorded In the last month, have you been in contact with someone who was confirmed or suspected to have Coronavirus / COVID-19? No / Unsure 06/03/2020 9:19 AM EDT documented as of this encounter Miscellaneous Notes * Telephone Encounter - Corrina Layne RN - 06/05/2020 10:05 AM EDT 06/02/20. No answer. Unable to leave vm No record of GI appt being scheduled. Sent message to scheduling. documented in this encounter Plan of Treatment Upcoming Encounters Date Type Specialty Care Team Description 06/08/2020 Nutrition Services [facility] Haley Davidson RDN [address] [facility] [place] [address] [phone] 06/09/2020 Home Visit [facility] Corrina Layne, RN [address] [place] [address] [phone] 07/15/2020 Office Visit Dermatology Kirstie Mcclain MD [address] [place] [address] [phone] 12/22/2020 Office Visit Internal Medicine Yariel Cardoza MD [address] [place] [address] [place] [address] [phone] Health Maintenance Due Date Last Done Comments Zoster Vaccines (1 of 2) 1993 *ADVANCE DIRECTIVE NOT ON FILE 12/23/2015 Influenza Vaccine (FLU shot) (#1) 2020 07/10/2019, 07/10/2019, 07/28/2018, Additional history exists COLONOSCOPY-EVERY 3 YRS AGES 18-100 03/26/2021 03/26/2018, 03/08/2015 DXA-SCREENING EVERY 7 YRS-USE SMARTSET# [id number] TO ORDER 08/17/2022 08/17/2015 DIABETES SCREEN EVERY 3 YRS-AGE [...] Documents on File Type Date Recorded Patient Design Director Expl 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
--- OUTSIDE RECORDS SUMMARY | 2023-06-07 08:09 | External Medical Summary | Summary of Care ---
Author Name Unknown Organization [place] [address] Care Team Providers Care Bridge Tender Name Role Phone Yariel Cardoza MD Primary Care Provide r Reason for Visit * Reason Comments Medical Nutrition Therapy Encounter Details Date Type Department Care Team Description 05/30/2020 Nutrition Services [facility], [place] [address] [facility] [place] [address] Haley Davidson RDN [address] [place] [address] [phone] IBS (irritable bowel syndrome)*; Dyslipidemia, goal LDL below 100 Allergies Active Allergy Reactions Severity Noted Date Comments Adhesive Tape 06/29/2003 Sensitive to Naproxen Hives 05/28/2015 Ivp Dye Hives 08/20/2000 Latex Other (Please comment) 01/05/2015 Contact rash Ibuprofen Rash 01/05/2015 documented as of this encounter (statuses as of 05/30/2020) Medications Medication Sig Dispensed Refills Start Date End Date Status camphor-menthol (SARNA) 0.5-0.5 % lotion Apply topically to affected area as needed for Itching. 222 mL 3 03/30/2016 Active polyethylene glycol 3350 (MIRALAX) 255 gram powder [...] 0.4 mg by mouth daily. Per [facility] 0 06/09/2019 Active ondansetron (ZOFRAN) 4 MG Tablet Take 4 mg by mouth every 6 hours as needed for Nausea. Per [facility] 0 06/09/2019 Active Sennosides (SENNA) 8.6 MG CAPS Take 1 Cap by mouth as needed for Constipation (1 cap up to two times daily for constipation). 0 06/12/2019 Active HYDROcodone-acetami nophen 5-325 mg per tab 5-325 MG per tablet 0 07/14/2019 Active Urea 20 % CREA Apply topically to affected area. Apply to feet 0 Active omeprazole (PRILOSEC) 20 MG CPDRIndications:Gas troesophageal reflux disease without esophagitis TAKE ONE CAPSULE BY MOUTH TWICE DAILY 30 MINUTES PRIOR TO MORNING AND EVENING MEALS 180 Cap 1 08/27/2019 Active potassium chloride ER 10 MEQ TBCR [...] 90 Tab 1 01/21/2020 Active nystatin (NYSTOP) 479372 UNIT/GM powderIndications:C andidal skin infection Apply topically [...] as of this encounter (statuses as of 05/30/2020) Active Problems Problem Noted Date Moderate episode [...] as of this encounter (statuses as of 05/30/2020) Resolved Problems Problem Noted Date Resolved Date [...] as of this encounter (statuses as of 05/30/2020) Immunizations Name Administration Dates Next Due Pneumococcal [...] or suspected to have Coronavirus / COVID-19? Unable to assess 05/30/2020 10:21 AM EDT documented as of this encounter Progress Notes * Haley Davidson RDN - 05/30/2020 1:15 PM EDT NUTRITION FOLLOW-UP NOTE - OUTPATIENT [employer] [facility] Name: Jayla Hayes Location: [facility] Date: 05/30/2020 Time: 1:15 PM Patient was identified by name and date. Patient Phone Numbers: [phone] Home [phone] Mobile NUTRITION ASSESSMENT: Client History 74 year old female with complex medical history including but not limited to kidney stones,HTN, IBS and dyslipidemiawho is scheduled for nutrition follow-up. BMs have decreased to twice daily. Pt with increased c/o bloating "regardless of what I eat". "Ice cream comes back out of nose"; pt reports intermittent issues when swallowing. "I need to chew up everything real small or it gets stuck". Food/Nutrition-Related History Diet Recall/Food Logs Indicate: Breakfast: 2 pieces of sausage Lunch: banana with a fruit and grain bar Supper: roast beef, mashed potatoes with noodles and corn Beverages: 1c coffee, water or sprite Medications Changes/Updates: None reported---pt reportedly taking Omeprazole "every other day" Nutrition-Focused Physical Findings---unable to assess Anthropometric Measurements Wt Readings from Last 6 Encounters: 05/24/20 91.3 kg (201 lb 3.2 oz) 05/08/20 90.5 kg (199 lb 9.6 oz) 03/03/20 92.1 kg (203 lb) 02/26/20 92.1 kg (203 lb) 08/18/19 88.9 kg (196 lb) 08/11/19 87.5 kg (193 lb) Weight Change: noted overall weight increase of 8lbs over past 9 months Biochemical Data, Medical Tests, and Procedures There are no biochemical abnormalities requiring a change in the nutrition plan of care. Previous Nutrition Diagnosis: Food and nutrition-related knowledge deficitrelated to Inadequate fruit and vegetable intake, Significant sodium intakeas evidenced by Reported diet and/or activity recall Progress towards goals: Patient will LIMIT daily intake of fiber while following low fiber/residue diet---progressing Patient will demonstrate or verbalize knowledge of diet---progressing CURRENT NUTRITION DIAGNOSIS Food and nutrition-related knowledge deficit related to high fat, high calorie/high sugar selections as evidenced by Reported diet and/or activity recall NUTRITION INTERVENTION: Education: Comprehensive nutrition education (05/30/201549) Nutrition Counseling: Strategies (05/30/201549) Nutrition Prescription: Diet: Heart Healthy, 2 gm Sodium;Fat Restricted (05/30/201549) Current Goals: Patient will demonstrate or verbalize knowledge of diet. Dietitian Action: Encouraged low fat, easy to chew diet as tolerated Encouraged patient to limit fiber IF +loose stools Encouraged maintain current fiber intake and increase water IF +constipation Encouraged pt to take all medications as ordered---Omeprazole BID (pt has only been taking intermittently) Note routed to [facility] RN CM as pt with ?s about scheduled GI appointment Recommendations to Ordering Provider: Recommendations: Diet education (05/30/201549) NUTRITION MONITORING AND EVALUATION: The following will be monitored and evaluated at the next visit: Monitoring: Monitor goals and progress;Monitor weight (05/30/201550) Plan for Return Appointment: 2-4 weeks (05/30/201550) Minutes of MNT: 15 (8-22) (05/30/201550) Time In: 1321 (05/30/201550) Time Out: 1340 (05/30/201550) Haley Davidson RDN [facility] documented in this encounter Plan of Treatment Upcoming Encounters Date Type Specialty Care Team Description 06/02/2020 Scheduled Telephone [facility] [place] Corrina Layne RN [address] [place] [address] [place] [address] [phone] 06/03/2020 Office Visit Internal Medicine Hillary White PA-C [address] [place] [address] [place] [address] [phone] 06/08/2020 Nutrition Services [facility] Haley Davidson RDN [address] [place] [address] [phone] 06/09/2020 Home Visit [facility] Corrina Layne RN [address] [facility] [place] [address] [phone] 07/15/2020 Office Visit Dermatology Kirstie Mcclain MD [address] [place] [address] [place] [address] [phone] Health Maintenance Due Date Last Done Comments [...] (irritable bowel syndrome)- Primary Irritable bowel syndrome Dyslipidemia, goal LDL below 100 Other and unspecified hyperlipidemia documented in this encounter Advance Directives Documents on File Type Date Recorded 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
--- OUTSIDE RECORDS SUMMARY | 2023-06-07 08:09 | External Medical Summary | Summary of Care ---
Author Name Unknown Organization [place] [address] Care Team Providers Care Government Affairs Manager Name Role Phone Yariel Cardoza MD Primary Care Provide r Reason for Visit * Reason Comments Medical Nutrition Therapy Encounter Details Date Type Department Care Team Description 06/08/2020 Nutrition Services [facility], [place] [address] [facility] [place] [address] Haley Davidson RDN [address] [facility] [address] [phone] Severe obesity with body mass index (BMI) of 35.0 to 39.9 with serious comorbidity (HCC)* Allergies Active Allergy Reactions Severity Noted Date Comments Adhesive Tape 06/29/2003 Sensitive to Naproxen Hives 05/28/2015 Ivp Dye Hives 08/20/2000 Latex Other (Please comment) 01/05/2015 Contact rash Ibuprofen Rash 01/05/2015 documented as of this encounter (statuses as of 06/08/2020) Medications Medication Sig Dispensed Refills Start Date [...] 90 Tab 1 01/21/2020 Active nystatin (NYSTOP) 288700 UNIT/GM powderIndications:C andidal skin infection Apply topically [...] mouth daily. 180 Cap 1 06/03/2020 Active documented as of this encounter (statuses as of 06/08/2020) Active Problems Problem Noted Date Moderate episode [...] as of this encounter (statuses as of 06/08/2020) Resolved Problems Problem Noted Date Resolved Date [...] as of this encounter (statuses as of 06/08/2020) Immunizations Name Administration Dates Next Due Pneumococcal [...] have Coronavirus / COVID-19? Unable to assess 06/08/2020 2:33 PM EDT documented as of this encounter Progress Notes * Haley Davidson RDN - 06/08/2020 2:27 PM EDT NUTRITION PROGRESS NOTE [facility] [employer] Patient Phone Numbers: [phone] Home [phone] Mobile Call placed to pt t 2:30 PM as follow-up nutrition visit. Pt asked if RDN could call back at a later date/time---as she was on the phone with her brother who is currently hospitalized. Patient denies any issues related to changes in wt. Wt Readings from Last 3 Encounters: 06/03/20 91.3 kg (201 lb 6 oz) 05/24/20 91.3 kg (201 lb 3.2 oz) 05/08/20 90.5 kg (199 lb 9.6 oz) Follow up as scheduled. Haley Davidson MS, SARAH, LDN Clinical Dietitian [facility] Text/ documented in this encounter Plan of Treatment Upcoming Encounters Date Type Specialty Care Team Description 06/09/2020 Home Visit [facility] Corrina Layne RN [address] [place] [address] [phone] 06/14/2020 Nutrition Services [facility] Haley Davidson RDN [address] [place] [address] [phone] 07/15/2020 Office Visit Dermatology Kirstie Mcclain MD [address] [place] [address], [place] [address] [phone] 12/22/2020 Office Visit Internal Medicine Yariel Cardoza MD [address] [place] [address] [place] [address] [phone] Health Maintenance Due Date Last Done Comments [...] as of this encounter Visit Diagnoses Diagnosis Severe obesity with body mass index (BMI) of 35.0 to 39.9 with serious comorbidity (HCC)- Primary documented in this encounter Advance Directives Documents on File Type Date Recorded 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
--- OUTSIDE RECORDS SUMMARY | 2023-06-07 08:09 | External Medical Summary | Summary of Care ---
Author Name Unknown Organization [place] [address] Care Team Providers Care Macerator Operator Name Role Phone Leanne Cardoza MD Primary Care Provide r Reason for Visit * Reason Comments eRx-Medication Refill Encounter Details Date Type Department Care Team Description 07/22/2020 Refill Internal Medicine [address] [place] [address] Leanne Cardoza MD [address] [place] [address] [place] [address] Allergies Active Allergy Reactions Severity Noted Date Comments Adhesive Tape 06/29/2003 Sensitive to Naproxen Hives 05/28/2015 Ivp Dye Hives 08/20/2000 Latex Other (Please comment) 01/05/2015 Contact rash Ibuprofen Rash 01/05/2015 documented as of this encounter (statuses as of 07/24/2020) Medications Medication Sig Dispensed Refills Start Date [...] Take 0.4 mg by mouth daily. Per [facility] 0 06/09/2019 Active ondansetron (ZOFRAN) 4 MG Tablet Take 4 mg by mouth every 6 hours as needed for Nausea. Per [facility] 0 06/09/2019 Active Sennosides (SENNA) [...] other day, Reported on 05/08/2020 nystatin (NYSTOP) 148884 UNIT/GM powderIndications :Candidal skin infection Apply topically [...] EVERY DAY 90 Tab 2 07/24/2020 Active hydroCHLOROthiazi de (HYDRODIURIL) 25 MG Tablet TAKE 1 TABLET BY MOUTH EVERY DAY 90 Tab 1 01/21/2020 07/24/20 20 Discontinued documented as of this encounter (statuses as of 07/24/2020) Active Problems Problem Noted Date Moderate episode [...] as of this encounter (statuses as of 07/24/2020) Resolved Problems Problem Noted Date Resolved Date [...] as of this encounter (statuses as of 07/24/2020) Immunizations Name Administration Dates Next Due Pneumococcal [...] encounter Miscellaneous Notes * Telephone Encounter - German Guo [facility] - 07/24/2020 2:37 PM EDT Signed Prescriptions: Disp Refills hydroCHLOROthiazide 25 MG Oral Tablet (HYD*90 Tab 2 Sig: TAKE 1 TABLET BY MOUTH EVERY DAYAuthorizing Provider: LEANNE CARDOZAOrdering User: GERMAN GUO documented in this encounter Plan of Treatment Upcoming Encounters Date Type Specialty Care Team Description 07/27/2020 Home Visit [facility] Corrina Layne RN 132 [facility] [place] [address] [phone] 08/10/2020 Nutrition Services [facility] Haley Davidson RDN [address] [place] [address] [phone] 08/11/2020 Office Visit Dermatology Kirstie Mcclain MD [address] [place] [phone] 12/22/2020 Office Visit Internal Medicine Leanne Cardoza MD [address] [place] [address] [place] [address] Health Maintenance Due Date Last Done [...] Documents on File Type Date Recorded Patient Veneer Layer Expl 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 Advanced Directive Advanced Directive Advanced Directive Advanced Directive
--- OUTSIDE RECORDS SUMMARY | 2023-06-07 08:09 | External Medical Summary | Summary of Care ---
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 Role Phone Yariel Cardoza MD Primary Care Provide r Reason for Visit * Reason Comments Acute RT knee pain/lump Encounter Details Date Type Department Care Team Description 06/26/2020 Office Visit Family Medicine [facility] [address] [facility] [place] [address] Cathy Garcia, DO [address], [place] [id number] Herpes zoster without complication*; Acute pain of right knee Allergies Active Allergy Reactions Severity Noted Date Comments Adhesive Tape 06/29/2003 Sensitive to Naproxen Hives 05/28/2015 Ivp Dye Hives 08/20/2000 Latex Other (Please comment) 01/05/2015 Contact rash Ibuprofen Rash 01/05/2015 documented as of this encounter (statuses as of 06/26/2020) Medications Medication Sig Dispensed Refills Start Date [...] 3 12/05/2019 Active amitriptyline (ELAVIL) 25 MG TabletIndications: Irritable bowel syndrome with both constipation and diarrhea,Moderate episode of recurrent major depressive disorder (HCC) TAKE 1 TABLET BY MOUTH EVERYDAY AT BEDTIME 90 Tab 3 12/07/2019 Active atorvaSTATin (LIPITOR) 20 MG TabletIndications: Dyslipidemia, goal LDL below 100 TAKE 1 TABLET BY MOUTH EVERY DAY 90 Tab 2 12/26/2019 Active Additional Information Patient taking differently: 20 mg, Every other day, Reported on 05/08/2020 hydroCHLOROthiazid e (HYDRODIURIL) 25 MG Tablet TAKE 1 TABLET BY MOUTH EVERY DAY 90 Tab 1 01/21/2020 Active nystatin (NYSTOP) 127225 UNIT/GM powderIndications: Candidal skin infection Apply topically to affected area 3 times a day. Apply to the affected area 45 g 1 02/26/2020 Active zoster vac recomb adjuvanted (SHINGRIX) 50 MCG/0.5ML injectionIndicatio ns:Need for vaccination for zoster Inject 0.5 mL into a large muscle now and repeat dose in 60 to 180 days 1 Each 1 03/03/2020 Active sertraline (ZOLOFT) 50 MG TabletIndications: Moderate episode of recurrent major depressive disorder [...] 3 04/30/2020 Active fluconazole (DIFLUCAN) 150 MG TabletIndications: Monilial intertrigo 1 tab weekly x 4 weeks 4 Tab 0 05/08/2020 Active omeprazole (PRILOSEC) 20 MG CPDRIndications:Ga stroesophageal reflux disease without esophagitis Take 2 Caps by mouth daily. 180 Cap 1 06/03/2020 Active valACYclovir HCl 1 GM Oral Tablet (Valtrex)Indicatio ns:Herpes zoster without complication Take 1 Tab by mouth 3 times a day for 7 days. For 7 days for shingles 21 Tab 0 06/26/2020 0 Active predniSONE 10 MG Oral Tablet (DELTASONE)Indicat ions:Herpes zoster without complication Take 5 tabs for 2 days, 4 tabs for 2 days, 3 tabs for 2 days, 2 tabs for 2 days 1 tab for 2 days 30 Tab 0 06/26/2020 Active polyethylene glycol 3350 (MIRALAX) 255 gram powder Take 17 g by mouth daily. Two-three times per week 255 g 0 09/27/2016 0 Discontinue d(End of Procedure) documented as of this encounter (statuses as of 06/26/2020) Active Problems Problem Noted Date Moderate episode [...] as of this encounter (statuses as of 06/26/2020) Resolved Problems Problem Noted Date Resolved Date [...] as of this encounter (statuses as of 06/26/2020) Immunizations Name Administration Dates Next Due Pneumococcal [...] Assigned at Date Recorded Not on file COVID-19 Exposure Response Date Recorded In the last month, have you been in contact with someone who was confirmed or suspected to have Coronavirus / COVID-19? Unable to assess 06/14/2020 4:14 PM EDT documented as of this encounter Last Filed Vital Signs Vital Sign Reading Time Taken Comments Blood Pressure 122/86 06/26/2020 2:59 PM EDT Pulse 82 06/26/2020 2:59 PM EDT Temperature 36.9 C (98.5 F) 06/26/2020 2:59 PM ED T Respiratory Rate 16 06/26/2020 2:59 PM EDT Oxygen Saturation - - Inhaled Oxygen Concentration - - Weight 91.2 kg (201 lb) 06/26/2020 2:59 PM EDT Height - - Body Mass Index 37.98 05/08/2020 10:46 AM EDT documented in this encounter Progress Notes * Cathy Garcia, - 06/26/2020 3:06 PM EDT Subjective: Jayla Hayes is a 74 year old female. Chief Complaint Patient presents with Acute RT knee pain/lump HPI: 74 year old female here today for lump on the R knee, started Saturday thought it was a blister/bug bite was itchy. Now the area is painful and radiates the whole way up her leg. No other rash or blisters. She is not diabetic. No hx of shingles in the past. No fall or injury She is here with her daugther. PHM: Patient Active Problem List Diagnosis Code [...] Current Outpatient Medications Medication Sig Dispense Refill omeprazole (PRILOSEC) 20 MG CPDR Take 2 Caps by mouth daily. 180 Cap 1 amLODIPine (NORVASC) 2.5 MG Tablet TAKE 1 TABLET BY MOUTH EVERY DAY 90 Tab 3 Probiotic Product ([employer] ADV PROBIOTIC GUMMIES) CHEW Take 2 Gum Dosing Unit by mouth. sertraline (ZOLOFT) 50 MG Tablet Take 1 Tab by mouth daily. 30 Tab 5 hydroCHLOROthiazide (HYDRODIURIL) 25 MG Tablet TAKE 1 TABLET BY MOUTH EVERY DAY 90 Tab 1 atorvaSTATin (LIPITOR) 20 MG Tablet TAKE [...] BY MOUTH EVERY DAY 90 Tab 3 Cholecalciferol 1000 units Capsule Take 2,000 Units by mouth daily. umeclidinium-vilanterol (ANORO ELLIPTA) 62.5-25 MCG/INH AEPB Inhale 1 Puff by mouth daily. Aspirin 81 MG Tablet Take 81 mg by mouth daily. oxygen GAS Use 2 L/min(Oxygen) as directed continuous. 1 Each 0 fluconazole (DIFLUCAN) 150 MG Tablet 1 tab weekly x 4 weeks 4 Tab 0 albuterol-ipratropium (DUONEB) 2.5-0.5 MG/3ML nebulizer solution INHALE 3 MLS VIA NEBULIZER EVERY 4HOURS NEEDED FOR COUGH, SHORTNESS OF BREATH OR WHEEZING. 360 mL 1 furosemide (LASIX) 20 MG Tablet TAKE 1 TABLET BY MOUTH DAILY NEEDED (SWELLING). FOR FLUID ACCUMULATION OR WEIGHT GAIN 30 Tab 5 zoster vac recomb adjuvanted (SHINGRIX) 50 MCG/0.5ML injection Inject 0.5 mL into a large muscle now and repeat dose in 60 to 180 days 1 Each 1 nystatin (NYSTOP) 058425 UNIT/GM powder Apply topically to affected area 3 times a day. Apply to the affected area 45 g 1 HYDROcodone-acetaminophen 5-325 mg per tab 5-325 MG per tablet Sennosides (SENNA) 8.6 MG CAPS Take 1 Cap by mouth as needed for Constipation (1 cap up to two times daily for constipation). ondansetron (ZOFRAN) 4 MG Tablet Take 4 mg by mouth every 6 hours as needed for Nausea. Per [facility] tamsulosin (FLOMAX) 0.4 MG Capsule Take 0.4 mg by mouth daily. Per [facility] meclizine (ANTIVERT) 25 MG Tablet TAKE [...] Every 4-6 hours as needed for cough VENTOLIN HFA 108 (90 Base) MCG/ACT inhaler INHALE 2 PUFFS BY MOUTH EVERY 4 HOURS NEEDED FOR WHEEZING. 1 Inhaler 5 budesonide (PULMICORT) 0.5 MG/2ML nebulizer solution INHALE ONE UNIT DOSE VIAL VIA NEBULIZER TWO TIMES A DAY. 3 Review of patient's allergies indicates: Allergen Reactions Adhesive Tape Sensitive to Aleve [Naproxen] Hives Ivp Dye Hives Latex Other (Please comment) Contact rash Motrin [Ibuprofen] Rash Objective: BP 122/86 | Pulse 82 | Temp 36.9 C (98.5 F) (Tympanic) | Resp 16 | Wt 91.2 kg (201 lb) | BMI 37.98 kg/m | BSA 1.98 m Physical Exam: General: alert, healthy and no distress Extremities: scabbed over cluster of vesicles lateral right knee. No other lesions that I could see Full ROM of the knee. She is walking okay. ASSESSMENT/PLAN: Herpes zoster without complication (Primary) - valACYclovir HCl 1 GM Oral Tablet (Valtrex); Take 1 Tab by mouth 3 times a day for 7 days. For 7 days for shingles - predniSONE 10 MG Oral Tablet (DELTASONE); Take 5 tabs for 2 days, 4 tabs for 2 days, 3 tabs for 2days, 2 tabs for 2 days 1 tab for 2 days Very mild. None the less will treat If symptoms worsen to call her PCP. Acute pain of right knee Cathy Garcia DO documented in this encounter Nursing Notes * Annette Person LPN - 06/26/2020 2:52 PM EDT Pt here with c/o Rt knee pain and swelling and has lump. She scratched the area and now it is red and swollen and has pain up the leg now. Began Saturday with the itching and is getting worse. documented in this encounter Plan of Treatment Upcoming Encounters Date Type Specialty Care Team Description 07/15/2020 Office Visit Dermatology Kirstie Mcclain MD [address] [place] [address], [place] [address] [phone] 08/10/2020 Nutrition Services [facility] Haley Davidson, ELIANAN [address] [facility] [place] [id number] 12/22/2020 Office Visit Internal Medicine Yariel Cardoza MD [address] [place] [address] [place] [address] [phone] Health Maintenance Due Date Last Done Comments [...] as of this encounter Visit Diagnoses Diagnosis Herpes zoster without complication- Primary Herpes zoster without mention of complication Acute pain of right knee documented in this encounter Advance Directives Documents on File Type Date Recorded 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
--- OUTSIDE RECORDS SUMMARY | 2023-06-07 08:09 | External Medical Summary | Summary of Care ---
Author Name Unknown Organization [place] [address] Care Team Providers Care Translator Deaf Name Role Phone Yariel Cardoza MD Primary Care Provide r Reason for Referral * Evaluate & Treat - Unlimited Visits (Within 30 days (routine)) Status Reason Specialty Diagnoses / Procedures Referred By Contact Referred To Contact Authorized Specialty Services Required Gastroenterology Diagnoses Schatzki's ring of distal esophagus Jade Castillo MD [address] [place] [address] [place] [address] Reason for Visit * Reason Comments Re-Check Encounter Details Date Type Department Care Team Description 06/03/2020 Office Visit Internal Medicine [address] [place] [id number] Jade Castillo MD [address] [place] [address] [place] [id number] Schatzki's ring of distal esophagus*; Gastroesophageal reflux disease without esophagitis; HTN, goal below 140/90; COPD, severe (HCC); Multiple thyroid nodules Allergies Active Allergy Reactions Severity Noted Date Comments Adhesive Tape 06/29/2003 Sensitive to Naproxen Hives 05/28/2015 Ivp Dye Hives 08/20/2000 Latex Other (Please comment) 01/05/2015 Contact rash Ibuprofen Rash 01/05/2015 documented as of this encounter (statuses as of 06/03/2020) Medications Medication Sig Dispensed Refills Start Date End Date Status polyethylene glycol 3350 (MIRALAX) 255 gram powder Take 17 g by mouth daily. Two-three times per week 255 g 0 09/27/2016 Active oxygen GASIndications:Hyp oxia Use 2 L/min(Oxygen) as [...] 0.4 mg by mouth daily. Per [facility] 0 06/09/2019 Active ondansetron (ZOFRAN) 4 MG Tablet Take 4 mg by mouth every 6 hours as needed for Nausea. Per [facility] 0 06/09/2019 Active Sennosides (SENNA) 8.6 [...] other day, Reported on 05/08/2020 10:51 AM hydroCHLOROthiazid e (HYDRODIURIL) 25 MG Tablet TAKE 1 TABLET BY MOUTH EVERY DAY 90 Tab 1 01/21/2020 Active nystatin (NYSTOP) 030143 UNIT/GM powderIndications: Candidal skin infection Apply topically [...] mouth daily. 180 Cap 1 06/03/2020 Active camphor-menthol (SARNA) 0.5-0.5 % lotion Apply topically to affected area as needed for Itching. 222 mL 3 03/30/2016 0 Discontinue d(Patient preference/ discontinua tion) Urea 20 % CREA Apply topically to affected area. Apply to feet 0 0 Discontinue d(Patient preference/ discontinua tion) omeprazole (PRILOSEC) 20 MG CPDRIndications:Ga stroesophageal reflux disease without esophagitis TAKE ONE CAPSULE BY MOUTH TWICE DAILY 30 MINUTES PRIOR TO MORNING AND EVENING MEALS 180 Cap 1 08/27/2019 0 Discontinue d(Refill) documented as of this encounter (statuses as of 06/03/2020) Active Problems Problem Noted Date Moderate episode [...] as of this encounter (statuses as of 06/03/2020) Resolved Problems Problem Noted Date Resolved Date [...] as of this encounter (statuses as of 06/03/2020) Immunizations Name Administration Dates Next Due Pneumococcal [...] AM EDT documented as of this encounter Last Filed Vital Signs Vital Sign Reading Time Taken Comments Blood Pressure 120/76 06/03/2020 9:28 AM EDT Pulse 64 06/03/2020 9:28 AM EDT Temperature 37 C (98.6 F) 06/03/2020 9:28 AM EDT Respiratory Rate 16 06/03/2020 9:28 AM EDT Oxygen Saturation - - Inhaled Oxygen Concentration - - Weight 91.3 kg (201 lb 6 oz) 06/03/2020 9:28 AM EDT Height - - Body Mass Index 38.05 05/08/2020 10:46 AM EDT documented in this encounter Progress Notes * Jade Castillo MD - 06/03/2020 9:59 AM EDT Subjective: HPI: Jayla Hayes is a 74 year old female with hx of COPD, HTN, HLD, thyroid nodules (benign FNA), urinary incontinence, depression, DDD, constipation, b/l breast reduction (2004) seen for Pt has no concerns Rash near the groin and under breast healing well - moving the bowel daily - COPD is better controlled on current regimen - HTN is better controlled on current meds - denied any CP, SOB, [place], blurry vision Patient Active Problem List Diagnosis Code Slow [...] Tab by mouth daily. 30 Tab 5 nystatin (NYSTOP) 404792 UNIT/GM powder Apply topically to affected area 3 times a day. Apply to the affected area 45 g 1 hydroCHLOROthiazide (HYDRODIURIL) 25 MG Tablet TAKE 1 [...] BY MOUTH EVERY DAY 90 Tab 3 Sennosides (SENNA) 8.6 MG CAPS Take 1 Cap by mouth as needed for Constipation (1 cap up to two times daily for constipation). Cholecalciferol 1000 units Capsule Take 2,000 Units by mouth daily. ondansetron (ZOFRAN) 4 MG Tablet Take 4 mg by mouth every 6 hours as needed for Nausea. Per [facility] fluticasone (FLONASE) 50 MCG/ACT nasal spray Administer 2 Sprays into each nostril daily. 1 Inhaler 5 dicyclomine (BENTYL) 10 MG Capsule Take 1 Cap by mouth 4 times a day as needed (abdominal pain,cramping). for abdominal pain 120 Cap 5 umeclidinium-vilanterol (ANORO ELLIPTA) 62.5-25 MCG/INH AEPB Inhale 1 Puff by mouth daily. Aspirin 81 MG Tablet Take 81 mg by mouth daily. budesonide (PULMICORT) 0.5 MG/2ML nebulizer solution INHALE ONE UNIT DOSE VIAL VIA NEBULIZER TWO TIMES A DAY. 3 oxygen GAS Use 2 L/min(Oxygen) as directed continuous. 1 Each 0 polyethylene glycol 3350 (MIRALAX) 255 gram powder Take 17 g by mouth daily. Two-three times per week 255 g 0 fluconazole (DIFLUCAN) 150 MG Tablet 1 tab weekly x 4 weeks 4 Tab 0 zoster vac recomb adjuvanted (SHINGRIX) 50 MCG/0.5ML injection Inject 0.5 mL into a large muscle now and repeat dose in 60 to 180 days 1 Each 1 HYDROcodone-acetaminophen 5-325 mg per tab 5-325 MG per tablet tamsulosin (FLOMAX) 0.4 MG Capsule Take 0.4 mg by mouth daily. Per [facility] meclizine (ANTIVERT) 25 MG Tablet TAKE 1 TABLET BY MOUTH ONCE EVERY 6 HOURS NEEDED FOR DIZZINESS/VERTIGO 10 Tab 0 Dextromethorphan-guaiFENesin (CORICIDIN HBP CONGESTION/COUGH) 10-200 MG CAPS Take by mouth. Every 4-6 hours as needed for cough VENTOLIN HFA 108 (90 Base) MCG/ACT inhaler INHALE 2 PUFFS BY MOUTH EVERY 4 HOURS NEEDED FOR WHEEZING. 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 BENIGN HYPERTENSION 01/28/2002 Bilateral carpal tunnel syndrome 07/20/2015 COPD (chronic obstructive pulmonary disease) ([facility]) COPD, severe ([facility]) 12/21/2015 COPD, severity to be determined ([facility]) 07/20/2015 Dyslipidemia, goal LDL below 100 10/16/2015 Dyslipidemia, goal LDL below 130 08/22/2015 FAM HX-CARDIOVAS DIS NEC 01/28/2002 Generalized osteoarthritis 08/22/2015 GERD (gastroesophageal reflux disease) 07/20/2015 Hypertrophy of breast 08/31/2003 IBS (irritable bowel syndrome) 07/20/2015 Kidney disease, chronic, stage III (GFR 30-59 ml/min) ([facility]) 10/16/2015 Kidney stone Lumbar degenerative disc disease 02/06/2016 Lumbar facet arthropathy ([facility]) 02/06/2016 Lumbar spinal stenosis [...] performed by Todd Rubalcavasins, DO at OR [facility] BIOPSY OF BREAST, OPEN 1971 benign, right, removed nipple for blocked milk glands BIOPSY OF BREAST, OPEN 1976 left, benign BREAST SURGERY PROCEDURE NEC bilateral Breast Reduction 09/20/03 BUNION CORRECTED WITH DOUBLE OSTEOTOMY 1991 right foot COLONOSCOPY, DIAGNOSTIC (RECTUM) 03/08/2015 adenomatous polyps, repeat 3 yrs/[facility] COLONOSCOPY, DIAGNOSTIC (RECTUM) 03/26/2018 adenomatous & serrated adenomatous polyps, repeat 3 yrs/[facility] EGD, FLEXIBLE, DIAGNOSTIC 01/21/2015 sm HH/[facility] EGD, FLEXIBLE, DIAGNOSTIC 07/22/2018 mild gastritis, Schatzki ring, duodenal polyp/[facility] ESOPHAGOSCOPY RIGID TRANSORAL HYPOPHARYNX [...] Relation Age of Onset Heart Disorder Father AR age 55 Heart Disorder Mother CAD, 84 in '02 Arthritis Mother in fingers Diabetes Brother half brother Stroke Aunt (Unspecified) 80's Stroke Uncle (Unspecified) 60's Social History Tobacco Use Smoking status: Former Smoker Packs/day: 1.75 Years: 38.00 Pack years: 66.50 Types: Cigarettes Last attempt to quit: 10/07/1995 Years since quittin.6 Smokeless tobacco: Never Used Tobacco comment: quit in 1995 Substance Use Topics Alcohol use: No Vaping/E-Cigarette Use Vaping/E-Cigarette Substances Vaping/E-Cigarette Devices RECENT LABS: Results for orders placed or performed in visit on 05/06/20 GLIADIN AB PANEL Result Value Ref Range GLIADIN IGG AB (DEAMIDATED) 6.5 <20 CU GLIADIN IGA AB (DEAMIDATED) <5.2 <20 CU CBC/DIFF Result Value Ref Range WBC 7.36 4.00 - 10.80 K/uL RBC 5.02 3.85 - 5.15 M/uL HGB 14.3 12.0 - 15.3 g/dL HCT 48.8 (H) 36.0 - 45.2 % MCV 97.2 81.5 - 97.5 fL MCH 28.5 27.0 - 34.0 pg MCHC 29.3 (L) 32.0 - 36.0 g/dL RDW 14.2 11.5 - 15.5 % PLATELET COUNT 198 140 - 400 K/uL MPV 9.8 6.6 - 11.1 fL NRBC'S 0 0 /100 WBCs NEUTS 68.2 40 - 75 % LYMPHS 18.9 18 - 42 % MONOS 10.1 1 - 11 % EOS 1.8 0 - 6 % BASOS 0.7 0 - 2 % IMMATURE GRANULOCYTE 0.3 0 - 2 % ABS. NEUTS 5.03 1.8 - 7.7 K/uL ABS. LYMPHS 1.39 1.0 - 4.8 K/uL ABS. MONOS 0.74 0.0 - 1.1 K/uL ABS. EOS 0.13 0.0 - 0.7 K/uL ABS. BASOS 0.05 0.0 - 0.2 K/uL ABSOLUTE IMMATURE GRANULOCYTES 0.02 0.0 - 0.2 K/uL COMPR METAB PANEL Result Value Ref Range BUN 19 6 - 20 mg/dL CREATININE 0.9 0.5 - 1.0 mg/dL E GLOM FILT RATE >60.0 >60 SODIUM 142 135 - 146 mmol/L POTASSIUM 4.1 3.5 - 5.1 mmol/L CHLORIDE 101 98 - 107 mmol/L CO2 27 22 - 32 mmol/L ANION GAP 14 7 - 15 mmol/L GLUCOSE 96 70 - 120 mg/dL ALBUMIN 4.2 3.8 - 5.0 g/dL AST 22 10 - 35 U/L ALKALINE PHOSPHATASE 95 0 - 153 U/L BILIRUBIN, TOTAL 0.5 0 - 1.2 mg/dL CALCIUM 9.9 8.4 - 10.2 mg/dL PROTEIN 6.7 6.0 - 8.3 g/dL ALT 22 10 - 35 U/L Review of Systems All other systems reviewed and are negative. OBJECTIVE: BP 120/76 | Pulse 64 | Temp (Src) 98.6 (Tympanic) | Resp 16 | Wt 201 lbs 6 oz (91.343kg) | BMI 38.05 kg/m | BSA 1.98 m PHYSICAL EXAM: Vitals are reviewed General:. NAD, well developed HEENT:. Normal Conjunctiva, EOMI Cardiac:. Normal S1, S2, no murmur Lungs:. CTA, no wheezing or crackles Abd:. soft, ND, NT, normal BS Skin: well healing rash under the breast and groin area MSK:. Normal gait Psych:. AAOx3, normal affect ASSESSMENT/PLAN: Schatzki's ring of distal esophagus (Primary) s/p dilation - pt had EGD done 2 years ago - currently pt does not take Prilosec: refill given - GI referral for follow up - GASTROENTEROLOGY REFERRAL OP Gastroesophageal reflux disease without esophagitis - omeprazole (PRILOSEC) 20 MG CPDR; Take 2 Caps by mouth daily. HTN, goal below 140/90 - BP is wnl - c/w current meds COPD, severe (HCC) - lungs CTA - c/w current meds Multiple thyroid nodules - FNA was benign - pt follows up with ENT @ [facility] - advised the pt to call and set up another appt with ENT Fungal skin rash: - healing well Check-out note: Pt would like to see [facility] Jade Castillo MD Family medicine, [address] [address] documented in this encounter Nursing Notes * Claribel Tovar LPN - 06/03/2020 9:26 AM EDT 3 month recheck Still with yeast. Finished pills. Still using powder. Notes odor documented in this encounter Plan of Treatment Upcoming Encounters Date Type Specialty Care Team Description 06/08/2020 [facility] Services [facility] Haley Davidson RDN [address] [facility] [place] [address] [phone] 06/09/2020 Home Visit [facility] Corrina Layne RN [address] [facility] [place] [address] [phone] 07/15/2020 Office Visit Dermatology Kirstie Mcclain MD [address] [place] [address] [phone] 12/22/2020 Office Visit Internal Medicine Yariel Cardoza MD [address] [place] [address] [place] [address] [phone] Scheduled Referrals Name Type Priority Associated Diagnoses Order Schedule GASTROENTEROLOGY REFERRAL OP Referral Within 30 days (routine) Schatzki's ring of distal esophagus Ordered: 06/03/2020 Health Maintenance Due Date Last Done Comments [...] as of this encounter Visit Diagnoses Diagnosis Schatzki's ring of distal esophagus- Primary Gastroesophageal reflux disease without esophagitis Esophageal reflux HTN, goal below 140/90 Unspecified essential hypertension COPD, severe (HCC) Chronic airway obstruction, not elsewhere classified Multiple thyroid nodules Nontoxic multinodular goiter documented in this encounter Advance Directives Documents on File Type Date Recorded 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
--- OUTSIDE RECORDS SUMMARY | 2023-06-07 08:09 | External Medical Summary | Summary of Care ---
Author Name Unknown Organization [place] [address] Care Team Providers Care Van Loader Name Role Phone Yariel Cardoza MD Primary Care Provide r Reason for Visit * Reason Comments [facility]: Maintenance Encounter Details Date Type Department Care Team Description 07/27/2020 Home Visit [facility], [facility] [address] [place] [address] Corrina Layne RN [address] [facility] [place] [address] [phone] Allergies Active Allergy Reactions Severity Noted Date Comments Adhesive Tape 06/29/2003 Sensitive to Naproxen Hives 05/28/2015 Ivp Dye Hives 08/20/2000 Latex Other (Please comment) 01/05/2015 Contact rash Ibuprofen Rash 01/05/2015 documented as of this encounter (statuses as of 07/27/2020) Medications Medication Sig Dispensed Refills Start Date [...] Take 0.4 mg by mouth daily. Per [facility] ER 0 06/09/2019 Active ondansetron (ZOFRAN) 4 MG Tablet Take 4 mg by mouth every 6 hours as needed for Nausea. Per [facility] ER 0 06/09/2019 Active Sennosides [...] other day, Reported on 05/08/2020 nystatin (NYSTOP) 360687 UNIT/GM powderIndications:C andidal skin infection Apply topically [...] as of this encounter (statuses as of 07/27/2020) Active Problems Problem Noted Date Moderate episode [...] as of this encounter (statuses as of 07/27/2020) Resolved Problems Problem Noted Date Resolved Date [...] as of this encounter (statuses as of 07/27/2020) Immunizations Name Administration Dates Next Due Pneumococcal [...] Reading Time Taken Comments Blood Pressure 130/70 07/27/2020 10:34 AM EDT Pulse 80 07/27/2020 10:34 AM EDT Temperature 36.7 C (98 F) 07/27/2020 10:34 AM EDT Respiratory Rate 18 07/27/2020 10:34 AM EDT Oxygen Saturation 97% 07/27/2020 10:34 AM EDT Inhaled Oxygen Concentration - - Weight - - Height - - Body Mass Index - - documented in this encounter Progress Notes * Corrina Layne RN - 07/27/2020 11:24 AM EDT [facility] [employer] Monthly Visit Date: 07/27/2020 Time: 10:25 AM Name: Jayla Hayes : 1945 Current Concerns: Patient being seen for routine follow up home visit today. Reports over all she has been doing well. Copd sx's stable. No sx's of exacerbation. Had recent follow up with pulmonology-Dr Soriano. No changes IBS sx's much improved since using metamucil. abd soft and doesn't feel bloated. Was put on prednisone and valtrex on 06/26 for red, itching area on RLE. That has since resolved. RNCM will return in one month. Physical Exam: BP 130/70 (BP Site: Left Arm, BP Position: Sitting, BP Cuff Size: Regular) | Pulse 80 | Temp 36.7 C (98 F) (Tympanic) [...] (trace ankle edema) present. Left lower leg: Edema (trace ankle edema) present. Skin: General: Skin is warm and dry. Neurological: Mental Status: She is alert and oriented to person, place, and time. Psychiatric: Mood and Affect: Mood normal. Behavior: Behavior normal. Thought Content: Thought content normal. Judgment: Judgment normal. Problems/Symptoms: Review of Systems Respiratory: Negative for cough, shortness of breath and wheezing. Cardiovascular: Positive for leg swelling (trace ankle edema that resolves with leg elevation). Negative for chest pain. Gastrointestinal: Negative for abdominal distention, abdominal pain, blood in stool, constipation, diarrhea, nausea and vomiting. All other systems reviewed and are negative. Medication Reconciliation: (See medication list) Does patient take medications as ordered: Yes Patient Well Being: PHQ2/9: @[id number]@ Mood stable. Denies falls Advanced Care Planning: Living Will. Patient's Goals of Care: 1. To stay out of the hospital 2. To spend time with family 3. Have better control over GI sx's-progress being gregg Reinforcement/Education: COPD: Pt instructed to: -Call with [...] regimen. Timing., Dosing. and Purspose. Treatment/Plan: Continue all medications including inhaled meds as ordered. Keep all follow up appts Continue metamucil Follow up with ELIANA on 08/10/20 RNCM to return in one month Home Interventions Provided: Reinforced current Plan of Care, including self-management and medication regimen Patient's 'Red Flags': 1. Increased sob 2. Increased cough/wheezing not relieved by nebulizer 3. fever Patient Needs to Remember: Call [facility] at with any new or worsening health concerns or problems, red flag symptoms. Referrals Needed: none Follow Up: Patient encouraged to call the intake phone number for all urgent but not emergent issues. Is the patient new to [facility] within the last 30 days? No, Assess appropriateness for upcoming telehealth visits. Cancel telehealth visits & schedule home visit with care steamfitter supervisor(s)as indicated. Provider is in agreement with Plan of Care: Yes Scheduled to follow up with patient in 1 month. Corrina Layne RN 07/27/2020 11:25 AM documented in this encounter Plan of Treatment Upcoming Encounters Date Type Specialty Care Team Description 08/10/2020 Nutrition Services [facility] Haley Davidson RDN [address] [place] [address] [phone] 08/11/2020 Office Visit Dermatology Kirstie Mcclain MD [address] [place] [address], [place] [address] [phone] 09/06/2020 Home Visit [facility] Corrina Layne RN [address] [place] [address] [phone] 12/22/2020 Office Visit Internal Medicine Jade Castillo MD [address] [place] [address] [place] [id number] Health Maintenance Due Date Last Done Comments [...] Documents on File Type Date Recorded Patient Billboard Poster Expl 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 Advanced Directive Advanced Directive Advanced Directive Advanced Directive Advanced Directive Advanced Directive"
--- OUTSIDE RECORDS SUMMARY | 2023-06-07 08:09 | External Medical Summary | Summary of Care ---
Author Name Unknown Organization [place] [address] Care Team Providers Care A R Collections Rep Name Role Phone Leanne Cardoza MD Primary Care Provide r Reason for Visit * Reason Comments NEW PATIENT pt here with kory r pt would like a FBSE. She reports several skin tags and moles she would like checked. * Evaluate & Treat - Unlimited Visits (Within 30 days (routine)) Status Reason Specialty Diagnoses / Procedures Referred By Contact Referred To Contact Authorized Specialty Services Required Dermatology Diagnoses Skin lesion Leanne Cardoza MD [address] [place] [address] [place] [address] Kirstie Mcclain MD [address] [place] [address] Encounter Details Date Type Department Care Team Description 07/15/2020 Office Visit Dermatology [facility] [address] [place] [address] Kirstie Mcclain MD [address] [place] [address] [phone] Seborrheic keratosis*; Hypertrophic and atrophic condition of skin; Hemangioma of skin Allergies Active Allergy Reactions Severity Noted Date Comments Adhesive Tape 06/29/2003 Sensitive to Naproxen Hives 05/28/2015 Ivp Dye Hives 08/20/2000 Latex Other (Please comment) 01/05/2015 Contact rash Ibuprofen Rash 01/05/2015 documented as of this encounter (statuses as of 07/15/2020) Medications Medication Sig Dispensed Refills Start Date [...] mg, Every other day, Reported on 05/08/2020 hydroCHLOROthiazide (HYDRODIURIL) 25 MG Tablet TAKE 1 TABLET BY MOUTH EVERY DAY 90 Tab 1 01/21/2020 Active nystatin (NYSTOP) 330569 UNIT/GM powderIndications:C andidal skin infection Apply topically [...] 2 days 30 Tab 0 06/26/2020 Active documented as of this encounter (statuses as of 07/15/2020) Active Problems Problem Noted Date Moderate episode [...] as of this encounter (statuses as of 07/15/2020) Resolved Problems Problem Noted Date Resolved Date [...] as of this encounter (statuses as of 07/15/2020) Immunizations Name Administration Dates Next Due Pneumococcal [...] Sign Reading Time Taken Comments Blood Pressure - - Pulse - - Temperature 37 C (98.6 F) 07/15/2020 9:37 AM EDT Respiratory Rate - - Oxygen Saturation - - Inhaled Oxygen Concentration - - Weight - - Height - - Body Mass Index - - documented in this encounter Progress Notes * Kirstie Mcclain MD - 07/15/2020 9:40 AM EDT SUBJECTIVE: CHIEF COMPLAINT: Chief Complaint Patient presents with NEW PATIENT pt here with daughter pt would like a FBSE. She reports several skin tags and moles she would like checked. HISTORY OF PRESENT ILLNESS: Jayla Hayes is a 74 year old female who was referred by Leanne Cardoza MD for full skin examination. Numerous growths on the chest x years, itches at times. Lesions on the upper thighs x years Tiny growths around the ankles x years No history of skin cancer. Accompanied today by her daughter. REVIEW OF SYSTEMS: SKIN: No other new or changing moles. HEME/LYMPH: No new or enlarging lumps or bumps. 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 BENIGN HYPERTENSION 01/28/2002 Bilateral carpal tunnel syndrome 07/20/2015 COPD (chronic obstructive pulmonary disease) ([facility]) COPD, severe ([facility]) 12/21/2015 COPD, severity to be determined ([facility]) 07/20/2015 Dyslipidemia, goal LDL below 100 10/16/2015 Dyslipidemia, goal LDL below 130 08/22/2015 FAM HX-CARDIOVAS DIS NEC 01/28/2002 Generalized osteoarthritis 08/22/2015 GERD (gastroesophageal reflux disease) 07/20/2015 Hypertrophy of breast 08/31/2003 IBS (irritable bowel syndrome) 07/20/2015 Kidney disease, chronic, stage III (GFR 30-59 ml/min) ([facility]) 10/16/2015 Kidney stone Lumbar degenerative disc disease 02/06/2016 Lumbar facet arthropathy ([facility]) 02/06/2016 Lumbar spinal stenosis 02/18/2017 Mixed incontinence urge and stress (male)(female) 07/20/2015 Multiple thyroid nodules 09/09/2016 Obesity, Class II, BMI 35.0-39.9, with comorbidity (see actual BMI) 01/19/2016 Primary osteoarthritis of right knee 02/18/2017 Pulmonary hypertension ([facility]) 05/07/2017 Reflux esophagitis 01/28/2002 Slow transit constipation 07/20/2015 Thyroid nodule 09/05/2016 Tubular adenoma of colon 07/20/2015 Urge incontinence 05/03/2004 Urinary, incontinence, stress female 02/21/2016 FAMILY HISTORY: Skin CA: None Skin Disorders: none SOCIAL HISTORY: Social History Tobacco Use Smoking status: Former Smoker Packs/day: 1.75 Years: 38.00 Pack years: 66.50 Types: Cigarettes Quit date: 10/07/1995 Years since quittin.7 Smokeless tobacco: Never Used Tobacco comment: quit in 1995 Substance Use Topics Alcohol use: No Vaping/E-Cigarette Use Vaping/E-Cigarette Substances Vaping/E-Cigarette Devices MEDICA TIONS: Current Outpatient Medications Medication Sig Dispense Refill predniSONE 10 MG Oral Tablet (DELTASONE) Take [...] 180 days 1 Each 1 nystatin (NYSTOP) 346452 UNIT/GM powder Apply topically to affected area [...] for Nausea. Per [facility] ER tamsulosin (FLOMAX) 0.4 MG Capsule Take 0.4 mg by mouth daily. Per [facility] ER meclizine (ANTIVERT) 25 MG Tablet [...] L/min(Oxygen) as directed continuous. 1 Each 0 ALLERG Y: Adhesive tape, Aleve [naproxen], Ivp dye, Latex, and Motrin [ibuprofen] OBJECTIVE: GEN: GEN: Healthy, alert, no distress, appears oriented, pleasant and cooperative. SKIN: Detailed exam of hair, face including lids and lips, neck, chest, abdomen, back, bilateral upper ext. (arm, hand, fingers), bilateral lower ext. (leg, foot, toes), fingernails, toenails and buttocks completed and are normal except: 1. Flesh-colored pedunculated papule on the right neck x 2 2. brown keratotic plaque with a stuck on appearance and horn cysts present on the chest, back and upper thighs 3. Tiny white keratotic papules around the ankles 4. Red vascular papule on the left lateral chest. ASSESSMENT/PLAN: 1. Skin tags-Removal of the lesion noted above. The procedure, risks, benefits, alternatives and expected outcomes were discussed with the patient and verbal consent was obtained. Time out called. Patient identified, procedure verified, site identified and verified. Patient and staff present in agreement. Area prepped with alcohol and anesthetized with 0.5% lidocaine with epinephrine at 1:200,000concentration. Snip removal with scissors performed. 20% AlCl and bandaging applied. Patient instructed in routine post-op care. COSMETIC FEE $20 CHARGED AT TIME OF SERVICE 2. Seborrheic/Benign Keratosis(-es)-Benign nature was discussed and no further intervention needed.Advised to call with any changes. 3. Stucco keratosis-Benign nature was discussed and no further intervention needed. Advised to callwith any changes. 4. Angioma-Benign nature was discussed and no further intervention needed. Advised to call with anychanges. Patient counseled to examine herself for new or changing moles on a monthly basis. I reveiwed changes to watch for including changes in the ABCDs, asymmetry of a lesion, changes in border, color or diameter as well as non healing lesions. I instructed the patient to call if any new lesions appear or current lesions change. I discussed with the patient the need for daily sunscreens of a number 30 or higher as well as how to apply sunscreens. Follow-up: as needed There were no barriers tolearning and no other pain was related to today's visit. The patient and/or person accompanying patient demonstrates understanding of the visit and treatment. Kirstie Mcclain MD 07/15/2020 9:40 AM Ref: LEANNE CARDOZA[[id number]] [address] [place] [address] [place] [address] (office) [phone] (fax) PCP: LEANNE CARDOZA [address] [place] [address] [place] [address] [phone] documented in this encounter Nursing Notes * Naresh Kiser LPN - 07/15/2020 9:37 AM EDT Patient identified by name and date. Chief Complaint Patient presents with NEW PATIENT pt here with daughter pt would like a FBSE. She reports several skin tags and moles she would like checked. documented in this encounter Plan of Treatment Upcoming Encounters Date Type Specialty Care Team Description 07/27/2020 Home Visit [facility] Corrina Layne, RN [address] [place] [address] [phone] 08/10/2020 Nutrition Services [facility] Haley Davidson RDN [address] [place] [address] [phone] 08/11/2020 Office Visit Dermatology Kirstie Mcclain MD [address] [place] [address], [place] [address] [phone] 12/22/2020 Office Visit Internal Medicine Leanne Cardoza MD [address] [place] [address] [place] [phone] Scheduled Orders Name Type Priority Associated Diagnoses Orde r Schedule REMOVAL OF SKIN TAGS, UP TO 15 Procedures Routine Hypertrophic and atrophic condition of skin Ordered: 07/15/2020 Health Maintenance Due Date Last Done Comments [...] as of this encounter Visit Diagnoses Diagnosis Seborrheic keratosis- Primary Other seborrheic keratosis Hypertrophic and atrophic condition of skin Unspecified hypertrophic and atrophic condition of skin Hemangioma of skin Hemangioma of skin and subcutaneous tissue documented in this encounter Advance Directives Documents on File Type Date Recorded Patient Planer Chain Offbearer Expl 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 Advanced Directive Advanced Directive Advanced Directive Advanced Directive
--- OUTSIDE RECORDS SUMMARY | 2023-06-07 08:09 | External Medical Summary | Summary of Care ---
Author Name Unknown Organization [place] [address] Care Team Providers Care Four H Club Agent Name Role Phone Yariel Cardoza MD Primary Care Provide r Reason for Visit * Reason Comments Appointment [facility] Encounter Details Date Type Department Care Team Description 06/03/2020 Telephone Internal Medicine [address] [place] [address] Jade Castillo MD [address] [place] [address] [place] [address] Appointment ([facility] ) Allergies Active Allergy Reactions Severity [...] 90 Tab 1 01/21/2020 Active nystatin (NYSTOP) 551613 UNIT/GM powderIndications:C andidal skin infection Apply topically [...] Telephone Encounter - Zulema Land OSA - 06/03/2020 11:31 AM EDT I spoke to [facility] scheduling, and Dr. Low did not have any openings until Nov. They are sending him a message to see if he can see her sooner, and they will call pt to schedule appt. documented in this encounter Plan of Treatment Upcoming Encounters Date Type Specialty Care Team Description 06/08/2020 Nutrition Services [facility] Haley Davidson RDN 132 [facility] [place] [address] [phone] 06/09/2020 Home Visit [facility] Corrina Layne RN [address] [place] [address] [phone] 07/15/2020 Office Visit Dermatology Kirstie Mcclain MD [address] [place] [address], [place] [address] [phone] 12/22/2020 Office Visit Internal Medicine Yariel Cardoza MD [address] [place] [address] [place] [address] [phone] Health Maintenance Due Date Last Done Comments [...] on File Type Date Recorded Patient Car Usher Expl 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
--- OUTSIDE RECORDS SUMMARY | 2023-06-07 08:09 | External Medical Summary | Summary of Care ---
Author Name Unknown Organization [place] [address] Care Team Providers Care Incident Response Coordinator Name Role Phone Yariel Cardoza MD Primary Care Provide r Reason for Visit * Reason Comments Medical Nutrition Therapy Encounter Details Date Type Department Care Team Description 06/14/2020 Nutrition Services [facility] [place] [address] [facility] [place] [address] Haley Davidson RDN [address] [facility] [place] [address] [phone] IBS (irritable bowel syndrome)* Allergies Active Allergy Reactions Severity Noted Date Comments Adhesive Tape 06/29/2003 Sensitive to Naproxen Hives 05/28/2015 Ivp Dye Hives 08/20/2000 Latex Other (Please comment) 01/05/2015 Contact rash Ibuprofen Rash 01/05/2015 documented as of this encounter (statuses as of 06/14/2020) Medications Medication Sig Dispensed Refills Start Date [...] Take 0.4 mg by mouth daily. Per [facility] ER 0 06/09/2019 Active ondansetron (ZOFRAN) 4 MG Tablet Take 4 mg by mouth every 6 hours as needed for Nausea. Per [facility] ER 0 06/09/2019 Active Sennosides [...] 90 Tab 1 01/21/2020 Active nystatin (NYSTOP) 924909 UNIT/GM powderIndications:C andidal skin infection Apply topically [...] as of this encounter (statuses as of 06/14/2020) Active Problems Problem Noted Date Moderate episode [...] as of this encounter (statuses as of 06/14/2020) Resolved Problems Problem Noted Date Resolved Date [...] as of this encounter (statuses as of 06/14/2020) Immunizations Name Administration Dates Next Due Pneumococcal [...] Progress Notes * Haley Davidson RDN - 06/14/2020 1:46 PM EDT NUTRITION PROGRESS NOTE [facility] Patient Phone Numbers: [phone] Home [phone] Mobile Call placed to pt as follow-up nutrition visit. Called pt at 1:53 PM and pt reports she had just "gotten out of the shower". Pt agreeable for RDN to call back later this afternoon. Pt reports to d/c of Miralax and initiation of Metamucil daily and Omeprazole BID---which has improved bloating. Pt reports "my stomach has never felt this soft". Pt denies any further abdominal distention @ this time. Good appetite. No questions regarding diet. Pt tolerating low sodium, heart healthy diet. Reviewed appropriate intake of fiber coupled with adequate fluid---pt verbalized understanding. No recent weights available to assess. Previous Nutrition Goals: Patient will demonstrate or verbalize knowledge of diet---met Reviewed sources of fiber with pt. Reinforced nutrition goals. Follow up as scheduled. Encouraged pt to contact [facility] [place] at [phone] for any non-emergent changes/concerns. Haley Davidson MS, RDN, LDN Clinical Dietitian [facility] Text/ documented in this encounter Plan of Treatment Upcoming Encounters Date Type Specialty Care Team Description 07/15/2020 Office Visit Dermatology Kirstie Mcclain MD [address] [facility] [place] [address] [phone] 08/10/2020 Nutrition Services [facility] [place] Haley Davidson RDN 132 [facility] [place] [address] [phone] 12/22/2020 Office Visit Internal Medicine Yariel Cardoza MD [address] [place] [address] [place] [address] [phone] Health Maintenance Due Date Last Done Comments [...] (irritable bowel syndrome)- Primary Irritable bowel syndrome documented in this encounter Advance Directives Documents on File Type Date Recorded Patient Chiropractic Care Expl 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
--- OUTSIDE RECORDS SUMMARY | 2023-06-07 08:09 | External Medical Summary | Summary of Care ---
Author Name Unknown Organization [place] [address] Care Team Providers Care Electrical Inspector Name Role Phone Yariel Cardoza MD Primary Care Provide r Reason for Visit * Reason Comments [facility]: Maintenance Encounter Details Date Type Department Care Team Description 06/02/2020 Telephone [facility], [facility] [address] [facility] [place] [address] Services, Scheduling [address] [place] [address] [facility]: Maintenance Allergies Active Allergy Reactions Severity Noted Date Comments Adhesive Tape 06/29/2003 Sensitive to Naproxen Hives 05/28/2015 Ivp Dye Hives 08/20/2000 Latex Other (Please comment) 01/05/2015 Contact rash Ibuprofen Rash 01/05/2015 documented as of this encounter (statuses as of 06/02/2020) Medications Medication Sig Dispensed Refills Start Date [...] mg by mouth daily. Per [facility] 0 06/09/2019 Active ondansetron (ZOFRAN) 4 MG Tablet Take 4 mg by mouth every 6 hours as needed for Nausea. Per [facility] ER 0 06/09/2019 Active Sennosides (SENNA) [...] 90 Tab 1 01/21/2020 Active nystatin (NYSTOP) 803939 UNIT/GM powderIndications:C andidal skin infection Apply topically [...] as of this encounter (statuses as of 06/02/2020) Active Problems Problem Noted Date Moderate episode [...] as of this encounter (statuses as of 06/02/2020) Resolved Problems Problem Noted Date Resolved Date [...] as of this encounter (statuses as of 06/02/2020) Immunizations Name Administration Dates Next Due Pneumococcal [...] encounter Miscellaneous Notes * Telephone Encounter - Vanessa Jones OSA - 06/02/2020 3:54 PM EDT Per request [facility] would like information faxed to them at [phone] they will call patient to schedule for follow up. VIRA Jacobo documented in this encounter Plan of Treatment Upcoming Encounters Date Type Specialty Care Team Description 06/03/2020 Office Visit Internal Medicine Hillary White, PA-C [address] [place] [address] [place] [address] [phone] 06/08/2020 Nutrition Services [facility] Haley Davidson RDN 132 [facility] [place] [address] [phone] 06/09/2020 Home Visit [facility] Corrina Layne RN 132 [facility] [place] [address] [phone] 07/15/2020 Office Visit Dermatology Kirstie Mcclain MD [address] [place] [address], [place] [address] [phone] Health Maintenance Due Date Last Done Comments [...] Documents on File Type Date Recorded Patient Meat Pickler Expl 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
--- OUTSIDE RECORDS SUMMARY | 2023-06-07 08:10 | External Medical Summary | Summary of Care ---
Author Name Unknown Organization [place] [address] Care Team Providers Care Flue Lining Dipper Name Role Phone Yariel Cardoza MD Primary Care Provide r Encounter Details Date Type Department Care Team Description 05/09/2020 Scan Encounter Unspecified Department <No scans attached> Allergies Active Allergy Reactions Severity Noted Date Comments Adhesive Tape 06/29/2003 Sensitive to Naproxen Hives 05/28/2015 Ivp Dye Hives 08/20/2000 Latex Other (Please comment) 01/05/2015 Contact rash Ibuprofen Rash 01/05/2015 documented as of this encounter (statuses as of 05/11/2020) Medications Medication Sig Dispensed Refills Start Date [...] 90 Tab 1 01/21/2020 Active nystatin (NYSTOP) 573880 UNIT/GM powderIndications:C andidal skin infection Apply topically [...] as of this encounter (statuses as of 05/11/2020) Active Problems Problem Noted Date Moderate episode [...] as of this encounter (statuses as of 05/11/2020) Resolved Problems Problem Noted Date Resolved Date [...] as of this encounter (statuses as of 05/11/2020) Immunizations Name Administration Dates Next Due Pneumococcal [...] have Coronavirus / COVID-19? No / Unsure 05/08/2020 10:38 AM EDT documented as of this encounter Plan of Treatment Upcoming Encounters Date Type Specialty Care Team Description 05/24/2020 Home Visit [facility] Corrina Layne RN 132 [facility] [place] [address] 06/03/2020 Office Visit Internal Medicine Hillary White PA-C [address] [place] [address] [place] [address] [phone] 07/15/2020 Office Visit Dermatology Kirstie Mcclain MD 200 [facility] [place] [address] [phone] Health Maintenance Due Date Last Done Comments [...] Documents on File Type Date Recorded 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
--- OUTSIDE RECORDS SUMMARY | 2023-06-07 08:10 | External Medical Summary ---
Author Name Unknown Address [address] [facility]. [place] [id number] Phone Organization K01:[facility] [address] [place] [id number] Laboratory Report Ordering Provider Test Date Status SABRA PERDOMO MD 05/06/2020 10:15:00 Final Observation Date Value Abnormality Reference (Units ) Status BUN 05/06/2020 22:55 19 6-20 (mg/dL) Final Creatinine 05/06/2020 22:55 0.9 0.5-1.0 (mg/ dL) Final E Glom Filt Rate 05/06/2020 22:55 >60.0 >60 Final Performing Location [facility] [address] [facility] [address]
--- OUTSIDE RECORDS SUMMARY | 2023-06-07 08:10 | External Medical Summary | Summary of Care ---
Author Name Unknown Organization [place] [address] Care Team Providers Care Financial Services Internship Name Role Phone Yariel Cardoza MD Primary Care Provide r Reason for Visit * Reason Comments Acute patient reports she thinks she has a yeast infection- was seen over a month ago in [place]- was going away and coming back but now is back and spreading- red raised rash- itchy at times; painful, especially with bra and clothing. Encounter Details Date Type Department Care Team Description 05/08/2020 Office Visit Family Medicine [facility] 132 [facility] [place] [id number] Corey Jennings MD [address] [place] [address] Monilial intertrigo*; Severe obesity with body mass index (BMI) of 35.0 to 39.9 with serious comorbidity (HCC) Allergies Active Allergy Reactions Severity Noted Date Comments Adhesive Tape 06/29/2003 Sensitive to Naproxen Hives 05/28/2015 Ivp Dye Hives 08/20/2000 Latex Other (Please comment) 01/05/2015 Contact rash Ibuprofen Rash 01/05/2015 documented as of this encounter (statuses as of 05/08/2020) Medications Medication Sig Dispensed Refills Start Date [...] [facility] 0 06/09/2019 Active Sennosides (SENNA) [...] 90 Tab 1 01/21/2020 Active nystatin (NYSTOP) 257737 UNIT/GM powderIndications:C andidal skin infection Apply topically [...] as of this encounter (statuses as of 05/08/2020) Active Problems Problem Noted Date Moderate episode [...] as of this encounter (statuses as of 05/08/2020) Resolved Problems Problem Noted Date Resolved Date [...] as of this encounter (statuses as of 05/08/2020) Immunizations Name Administration Dates Next Due Pneumococcal [...] Sign Reading Time Taken Comments Blood Pressure 118/82 05/08/2020 10:46 AM EDT Pulse 64 05/08/2020 10:46 AM EDT Temperature 36.4 C (97.5 F) 05/08/2020 10:46 AM E DT Respiratory Rate 18 05/08/2020 10:46 AM EDT Oxygen Saturation - - Inhaled Oxygen Concentration - - Weight 90.5 kg (199 lb 9.6 oz) 05/08/2020 10:46 AM EDT Height 154.9 cm (5' 1") 05/08/2020 10:46 AM EDT Body Mass Index 37.71 05/08/2020 10:46 AM EDT documented in this encounter Progress Notes * Corey Jennings MD - 05/08/2020 11:13 AM EDT Subjective: Jayla Hayes is a 74 year old female. Chief Complaint Patient presents with Acute patient reports she thinks she has a yeast infection- was seen over a month ago in [place]- wasgoing away and coming back but now is back and spreading- red raised rash- itchy at times; painful,especially with bra and clothing. HPI: 74-year-old with known history of severe COPD, obesity. No history diabetes. Has had a rash under the breast in the groin areas dating back at least a month. She was prescribed nystatin powder which she has been using. She notes improvement in the groin areas but not under the breast and actually she feels that that is getting worse. She has had a breast reduction in the past. She is typically wearing a bur although she notes that it is uncomfortable. She is not aware of any fever. There has not been any sores or any drainage. She just had blood work done and this showed a normal blood sugar under 100. Her renal function wasnormal. 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 Dyslipidemia, goal LDL below 100 E78.5 COPD, severe ([facility]) J44.9 Severe obesity with body mass index (BMI) of 35.0 to 39.9 with serious comorbidity ([facility]) E66.01 Lumbar degenerative disc disease M51.36 Lumbar facet arthropathy M47.816 Urinary, incontinence, stress female N39.3 Rhinitis, nonallergic J31.0 Multiple thyroid nodules E04.2 Lumbar spinal stenosis M48.061 Primary osteoarthritis of right knee M17.11 Pulmonary hypertension ([facility]) I27.20 HTN, goal below 140/90 I10 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 FOR FLUID ACCUMULATION OR WEIGHT GAIN 30 Tab 5 Probiotic Product ([employer] ADV PROBIOTIC GUMMIES) CHEW Take 2 Gum Dosing Unit by mouth. sertraline (ZOLOFT) 50 MG Tablet Take 1 Tab by mouth daily. 30 Tab 5 nystatin (NYSTOP) 563503 UNIT/GM powder Apply topically to affected area [...] BY MOUTH EVERY DAY 90 Tab 3 omeprazole (PRILOSEC) 20 MG CPDR TAKE ONE CAPSULE BY MOUTH TWICE DAILY 30 MINUTES PRIOR TO MORNING AND EVENING MEALS 180 Cap 1 Urea 20 % CREA Apply topically to affected area. Apply to feet Cholecalciferol 1000 units Capsule Take 2,000 Units by mouth daily. dicyclomine (BENTYL) 10 MG Capsule Take 1 [...] Two-three times per week 255 g 0 albuterol-ipratropium (DUONEB) 2.5-0.5 MG/3ML nebulizer solution [...] for Nausea. Per [facility] tamsulosin (FLOMAX) 0.4 MG Capsule Take 0.4 mg by mouth daily. Per [facility] meclizine (ANTIVERT) 25 MG Tablet TAKE 1 TABLET BY MOUTH ONCE EVERY 6 HOURS NEEDED FOR DIZZINESS/VERTIGO 10 Tab 0 fluticasone (FLONASE) 50 MCG/ACT nasal spray Administer 2 Sprays into each nostril daily. 1 Inhaler5 Dextromethorphan-guaiFENesin (CORICIDIN HBP CONGESTION/COUGH) 10-200 MG CAPS Take by mouth. Every 4-6 hours as needed for cough VENTOLIN HFA 108 (90 Base) MCG/ACT inhaler INHALE 2 PUFFS BY MOUTH EVERY 4 HOURS NEEDED FOR WHEEZING. 1 Inhaler 5 budesonide (PULMICORT) 0.5 MG/2ML nebulizer solution INHALE ONE UNIT DOSE VIAL VIA NEBULIZER TWO TIMES A DAY. 3 camphor-menthol (SARNA) 0.5-0.5 % lotion Apply topically to affected area as needed for Itching. 222 mL 3 Review of patient's allergies indicates: Allergen Reactions Adhesive Tape Sensitive to Aleve [Naproxen] Hives Ivp Dye Hives Latex Other (Please comment) Contact rash Motrin [Ibuprofen] Rash Objective: BP 118/82 | Pulse 64 | Temp (Src) 97.5 (Temporal Artery) | Resp 18 | Ht 5' 1" (1.549m) | Wt 199 lbs9.6 oz (90.538kg) | BMI 37.71 kg/m | BSA 1.97 m Physical Exam: CONST: alert, pleasant, no acute distress HEAD: normocephalic, atraumatic NECK: supple, soft, no adenopathy MENTAL STATUS: no evidence of thought disorder, no delusional thought, no evidence of paranoia, thought is non-tangential. SKIN: Bright red linear pattern a rash under both breast extending far laterally to the most lateral aspect of the breast. There is no vesicles. There is no drainage. She has just slight erythema in both groin areas and at a panniculus of the abdomen. Both of these areas show minimal involvement/erythema ASSESSMENT/PLAN: Monilial intertrigo (Primary) - fluconazole (DIFLUCAN) 150 MG Tablet; 1 tab weekly x 4 weeks I told her she could use clotrimazole or terbinafine topically a but it probably would be necessarysince she is using the Diflucan. I did recommend she continue the nystatin powder even after rash has resolved to try to prevent it from recurring. discussed drying affected areas well after bath or shower. recommend she not wear a bra off until this is resolved Severe obesity with body mass index (BMI) of 35.0 to 39.9 with serious comorbidity (HCC)-this certainly is contributing to the intertrigo. Patient aware Corey Jennings MD documented in this encounter Nursing Notes * Leader, KRISTIAN Bryant - 05/08/2020 10:47 AM EDT Chief Complaint Patient presents with Acute patient reports she thinks she has a yeast infection- was seen over a month ago in [place]- wasgoing away and coming back but now is back and spreading- red raised rash- itchy at times; painful,especially with bra and clothing. documented in this encounter Plan of Treatment Upcoming Encounters Date Type Specialty Care Team Description 05/24/2020 Home Visit [facility] Corrina Layne RN 132 [facility] [place] [address] [phone] 06/03/2020 Office Visit Internal Medicine Hillary White PA-C [address] [place] [address] [place] [address] [phone] 07/15/2020 Office [facility] [address] [phone] Health Maintenance Due Date Last Done Comments [...] Td Vaccines (2 - Td) 04/19/2028 04/19/2018, 05/03/2004 Pneumococcal Vaccine: 65+ Years Completed 03/28/2017, 09/21/2015 MENINGOCOCCAL (MENACTRA/MENVEO) Aged Out No longer eligible based on patient's age to complete this topic documented as of this encounter Implants Not on filedocumented as of this encounter Visit Diagnoses Diagnosis Monilial intertrigo- Primary Candidiasis of skin and nails Severe obesity with body mass index (BMI) of 35.0 to 39.9 with serious comorbidity (HCC) documented in this encounter Advance Directives Documents on File Type Date Recorded Patient Picc Nurse Expl 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
--- OUTSIDE RECORDS SUMMARY | 2023-06-07 08:10 | External Medical Summary | Summary of Care ---
Author Name Unknown Organization [place] [address] Care Team Providers Care Shape Carver Name Role Phone Yariel Cardoza MD Primary Care Provide r Encounter Details Date Type Department Care Team Description 05/06/2020 Documentation Laboratory, [address] [place] [address] [place] [id number] Diarrhea, unspecified type; RUQ pain; Abdominal bloating Allergies Active Allergy Reactions Severity Noted Date Comments Adhesive Tape 06/29/2003 Sensitive to Naproxen Hives 05/28/2015 Ivp Dye Hives 08/20/2000 Latex Other (Please comment) 01/05/2015 Contact rash Ibuprofen Rash 01/05/2015 documented as of this encounter (statuses as of 05/09/2020) Medications Medication Sig Dispensed Refills Start Date [...] EVERY DAY 90 Tab 2 12/26/2019 Active hydroCHLOROthiazide (HYDRODIURIL) 25 MG Tablet TAKE 1 TABLET BY MOUTH EVERY DAY 90 Tab 1 01/21/2020 Active nystatin (NYSTOP) 554302 UNIT/GM powderIndications:C andidal skin infection Apply topically [...] EVERY DAY 90 Tab 3 04/30/2020 Active documented as of this encounter (statuses as of 05/09/2020) Active Problems Problem Noted Date Moderate episode [...] as of this encounter (statuses as of 05/09/2020) Resolved Problems Problem Noted Date Resolved Date [...] as of this encounter (statuses as of 05/09/2020) Immunizations Name Administration Dates Next Due Pneumococcal [...] have Coronavirus / COVID-19? No / Unsure 05/06/2020 10:06 AM EDT documented as of this encounter Nursing Notes * Data, Entry - 05/07/2020 5:34 AM EDT Automated conversion to a Documentation Encounter documented in this encounter Plan of Treatment Upcoming Encounters Date Type Specialty Care Team Description 05/24/2020 Home Visit [facility] Corrina Layne, RN [address] [place] [address] [phone] 06/03/2020 Office Visit Internal Medicine Hillary White PA-C [address] [place] [address] [place] [address] [phone] 07/15/2020 Office Visit Dermatology Kirstie Mcclain MD 200 [facility] [place] [address] [phone] Health Maintenance Due Date Last Done Comments [...] Procedure Name Priority Date/Time Associated Diagnosis Comments COMPR METAB PANEL Routine 05/06/2020 10: 15 AM EDT RUQ pain Abdominal bloating GLIADIN AB PANEL Routine 05/06/2020 10:1 5 AM EDT Diarrhea, unspecified type CBC/DIFF Routine 05/06/2020 10:15 AM EDT RUQ pain Abdominal bloating documented in this encounter Results * COMPR METAB PANEL (05/06/2020 10:15 AM EDT) BUN 19 6 - 20 mg/dL [facility] CREATININE 0.9 0.5 - 1.0 mg/dL [facility] E GLOM FILT RATE >60.0Comment:If patient is , multiply estimated GFR by 1.159. >60 [facility] SODIUM 142 135 - 146 mmol/L [facility] POTASSIUM 4.1 3.5 - 5.1 mmol/L [facility] CHLORIDE 101 98 - 107 mmol/L [facility] CO2 27 22 - 32 mmol/L [facility] ANION GAP 14 7 - 15 mmol/L [facility] GLUCOSE 96 70 - 120 mg/dL [facility] ALBUMIN 4.2 3.8 - 5.0 g/dL [facility] AST 22 10 - 35 U/L [facility] ALKALINE PHOSPHATASE 95 0 - 153 U/L [facility] BILIRUBIN, TOTAL 0.5 0 - 1.2 mg/dL [facility] CALCIUM 9.9 8.4 - 10.2 mg/dL [facility] PROTEIN 6.7 6.0 - 8.3 g/dL [facility] ALT 22 10 - 35 U/L [facility] Specimen Performing Organization Address City/State/Zipcod e Phone Number [facility] [address] [place] [address] * CBC/DIFF (05/06/2020 10:15 AM EDT) WBC 7.36 4.00 - 10.80 K/uL [facility] RBC 5.02 3.85 - 5.15 M/uL [facility] HGB 14.3 12.0 - 15.3 g/dL [facility] HCT 48.8(H) 36.0 - 45.2 % [facility] MCV 97.2 81.5 - 97.5 fL [facility] MCH 28.5 27.0 - 34.0 pg [facility] MCHC 29.3(L) 32.0 - 36.0 g/dL [facility] RDW 14.2 11.5 - 15.5 % [facility] PLATELET COUNT 198 140 - 400 K/uL [facility] MPV 9.8 6.6 - 11.1 fL [facility] NRBC'S 0 0 /100 WBCs [facility] NEUTS 68.2 40 - 75 % [facility] LYMPHS 18.9 18 - 42 % [facility] MONOS 10.1 1 - 11 % [facility] EOS 1.8 0 - 6 % [facility] BASOS 0.7 0 - 2 % [facility] IMMATURE GRANULOCYTE 0.3 0 - 2 % [facility] ABS. NEUTS 5.03 1.8 - 7.7 K/uL [facility] ABS. LYMPHS 1.39 1.0 - 4.8 K/uL [facility] ABS. MONOS 0.74 0.0 - 1.1 K/uL [facility] ABS. EOS 0.13 0.0 - 0.7 K/uL [facility] ABS. BASOS 0.05 0.0 - 0.2 K/uL [facility] ABSOLUTE IMMATURE GRANULOCYTES 0.02 0.0 - 0.2 K/uL [facility] Specimen Performing Organization Address [facility] e Phone Number [facility] [address] [place] [address] * GLIADIN AB PANEL (05/06/2020 10:15 AM EDT) GLIADIN IGG AB (DEAMIDATED) 6.5Comment:NEGA TIVE <20 CU [facility] GLIADIN IGA AB (DEAMIDATED) <5.2Comment:NEG ATIVE <20 CU [facility] Specimen Performing Organization Address [facility] e Phone Number [facility] [address] [place] [address] documented in this encounter Visit Diagnoses Diagnosis Diarrhea, unspecified type RUQ pain Abdominal pain, right upper quadrant Abdominal bloating Flatulence, eructation, and gas pain documented in this encounter Advance Directives Documents on File Type Date Recorded 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
--- OUTSIDE RECORDS SUMMARY | 2023-06-07 08:10 | External Medical Summary | Summary of Care ---
Author Name Unknown Organization [place] [address] Care Team Providers Care Aerographer Name Role Phone Yariel Cardoza MD Primary Care Provide r Reason for Visit * Reason Comments [facility]: Maintenance Encounter Details Date Type Department Care Team Description 05/24/2020 Home Visit [facility], [facility] [address] [place] [address] Corrina Layne RN 132 [facility] [place] [address] [phone] Allergies Active Allergy Reactions Severity Noted Date Comments Adhesive Tape 06/29/2003 Sensitive to Naproxen Hives 05/28/2015 Ivp Dye Hives 08/20/2000 Latex Other (Please comment) 01/05/2015 Contact rash Ibuprofen Rash 01/05/2015 documented as of this encounter (statuses as of 05/25/2020) Medications Medication Sig Dispensed Refills Start Date [...] 0.4 mg by mouth daily. Per [facility] ER 0 06/09/2019 Active ondansetron (ZOFRAN) 4 MG Tablet Take 4 mg by mouth every 6 hours as needed for Nausea. Per [facility] ER 0 06/09/2019 Active Sennosides (SENNA) [...] 90 Tab 1 01/21/2020 Active nystatin (NYSTOP) 302362 UNIT/GM powderIndications:C andidal skin infection Apply topically [...] as of this encounter (statuses as of 05/25/2020) Active Problems Problem Noted Date Moderate episode [...] as of this encounter (statuses as of 05/25/2020) Resolved Problems Problem Noted Date Resolved Date [...] as of this encounter (statuses as of 05/25/2020) Immunizations Name Administration Dates Next Due Pneumococcal [...] have Coronavirus / COVID-19? No / Unsure 05/25/2020 7:24 AM EDT documented as of this encounter Last Filed Vital Signs Vital Sign Reading Time Taken Comments Blood Pressure 128/70 05/24/2020 9:30 AM EDT Pulse 72 05/24/2020 9:30 AM EDT Temperature 37 C (98.6 F) 05/24/2020 9:30 AM EDT Respiratory Rate 18 05/24/2020 9:30 AM EDT Oxygen Saturation 97% 05/24/2020 9:30 AM EDT Inhaled Oxygen Concentration - - Weight 91.3 kg (201 lb 3.2 oz) 05/24/2020 9:30 A M EDT Height - - Body Mass Index 38.02 05/08/2020 10:46 AM EDT documented in this encounter Progress Notes * Corrina Layne RN - 05/24/2020 7:17 PM EDT [facility] Supervisor Shaving And Splitting Visit Date: 05/24/2020 Time: 930 AM Name: Jayla Hayes : 1945 Current Concerns: Patient being seen today for 2 week follow up from ED visit for abdominal pain. Patient reports that her IBS symptoms do seem to be worse lately in the sense that she has more abdominal pain, bloating, gas, constipation. +bowel sounds x 4. Moves bowels every day, but is not her usual amount. Patient taking all meds as ordered. States that she is trying to follow diet to reducesymptoms. Willing to have "refresher" from RD though. Has not seen GI for awhile. Will get patient appt to see GI for follow up. Sees Dr Low [facility]. COPD sxs stable. No increased neb/rescue inhaler use. [facility] does not order rescue kits. Feels that her breathing is at baseline. Voiding without dysuria, hematuria. Denies flank pain. Output wnl for patient. Rash under breasts resolved. Continues on fluconazole. Reinforced to call [facility] prior to going to ED for non-life threatening health concerns. Patient verbalizes understanding and has [facility] magnet on . States that she will call us first. Physical Exam: BP 128/70 | Pulse 72 | Temp (Src) 98.6 (Tympanic) | Resp 18 | Wt 201 lbs 3.2 oz (91.264kg) | BMI 38.02 kg/m | BSA 1.98 m | SaO2 97% Pain 3 Physical Exam Cardiovascular: Rate and Rhythm: Normal [...] and fever. HENT: Negative. Eyes: Negative. Respiratory: Negative for cough, chest tightness, shortness of breath and wheezing. Cardiovascular: Negative for chest pain and leg swelling. Gastrointestinal: Positive for abdominal distention, abdominal pain (intermittent with IBS) and constipation. Negative for diarrhea and vomiting. Endocrine: Negative. Genitourinary: Negative for difficulty urinating, dysuria and hematuria. Musculoskeletal: Negative. Skin: Negative. Allergic/Immunologic: Negative. Neurological: Negative. Hematological: Negative. Psychiatric/Behavioral: Negative. Medication Reconciliation: (See medication list) Does patient take medications as ordered: Yes patient is independent with medications Patient Well Being: PHQ2/9: @[id number]@ Mood stable. Denies falls Advanced Care Planning: Living Will. Patient's Goals of Care: 1. To stay out of hospital 2. To spend time with family 3. Get GI sxs under better control with IBS Reinforcement/Education: COPD: Pt instructed to: -Call with [...] exercises that will be right for you. Reviewed diet for IBS, sx's to report such as increased abd pain, n/v, fever, diarrhea Reinforced safety education and fall prevention. and Reinforced medication regimen. Timing., Dosing. and Purspose. Treatment/Plan: RD referral GI follow up appt to be scheduled brittney Follow previously instructed diet to minimize GI sx's Report worsening of sx's to [facility] Call [facility] prior to going to ED for non life threatening issues Home Interventions Provided: Specialty Referral Placed Consulted PCP/Specialist Reinforced current Plan of Care, including self-management and medication regimen Updated Exacerbation Plan Patient's 'Red Flags': 1. Increased sob 2. Cough/wheezing 3. Fever 4. Increase in abd pain, n/v Patient Needs to Remember: Call [facility] at with any new or worsening health concerns or problems, red flag symptoms. Referrals Needed: Other GI and RD Follow Up: Patient encouraged to call the intake phone number for all urgent but not emergent issues. Is the patient new to [facility] within the last 30 days? No, Assess appropriateness for upcoming telehealth visits. Cancel telehealth visits & schedule home visit with care senior engineering team leader(s)as indicated. Provider is in agreement with Plan of Care: Yes Scheduled to follow up with patient in 2 weeks. Corrina Layne RN 05/24/2020 7:17 PM documented in this encounter Plan of Treatment Upcoming Encounters Date Type Specialty Care Team Description 06/03/2020 Office Visit Internal Medicine Hillary White PA-C [address] [place] [address] [place] [address] [phone] 07/15/2020 Office Visit Dermatology Kirstie Mcclain MD 200 [place] [address] [phone] Health Maintenance Due Date Last Done Comments [...] on File Type Date Recorded Patient Employment And Claims Aide Expl 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
--- OUTSIDE RECORDS SUMMARY | 2023-06-07 08:10 | External Medical Summary ---
Author Name Unknown Address [address] [place] [address] Phone Organization K01:[facility] [address] [facility] [place] [address] Laboratory Report Ordering Provider Test Date Status SABRA PERDOMO MD 05/06/2020 10:15:00 Final Observation Date Value Abnormality Reference (Units ) Status WBC, Total 05/06/2020 22:16 7.36 4.00-10.80 (K/uL) Final RBC 05/06/2020 22:16 5.02 3.85-5.15 (M/uL) Final Hemoglobin 05/06/2020 22:16 14.3 12.0-15.3 (g/dL) Final HCT 05/06/2020 22:16 48.8 Above high normal 36.0-45.2 (%) Final MCV 05/06/2020 22:16 97.2 81.5-97.5 (fL) Final MCH 05/06/2020 22:16 28.5 27.0-34.0 (pg) Final MCHC 05/06/2020 22:16 29.3 Below low normal 32.0-36.0 (g/dL) Final RDW 05/06/2020 22:16 14.2 11.5-15.5 (%) Final Platelets 05/06/2020 22:16 198 140-400 (K/uL) Final MPV 05/06/2020 22:16 9.8 6.6-11.1 (fL) Final nRBC/100 WBC Bld Auto-Rto 05/06/2020 22:16 0 0 (/100 WBCs) Final Segs 05/06/2020 22:16 68.2 40-75 (%) Final Lymphs % 05/06/2020 22:16 18.9 18-42 (%) Final Monos 05/06/2020 22:16 10.1 1-11 (%) Final Eosinophils 05/06/2020 22:16 1.8 0-6 (%) Final Basos 05/06/2020 22:16 0.7 0-2 (%) Final Immature Granulocyte, Percent 05/06/2020 22:16 0.3 0-2 (%) Final Neutrophils Bld 05/06/2020 22:16 5.03 1.8-7.7 (K/uL) Final Lymphs, absolute 05/06/2020 22:16 1.39 1.0-4.8 (K/uL) Final Monos, Abs 05/06/2020 22:16 0.74 0.0-1.1 (K/uL) Final Eos, Abs 05/06/2020 22:16 0.13 0.0-0.7 (K/uL) Final Basos, Abs 05/06/2020 22:16 0.05 0.0-0.2 (K/uL) Final Immature Granulocytes, Number 05/06/2020 22:16 0.02 0.0-0.2 (K/uL) Final Performing Location [facility] [address] [place] [address]
--- OUTSIDE RECORDS SUMMARY | 2023-06-07 08:10 | External Medical Summary | Summary of Care ---
Author Name Unknown Organization [place] [address] Care Team Providers Care Child Care Cook Name Role Phone Yariel Cardoza MD Primary Care Provide r Reason for Visit * Reason Comments Test Results Encounter Details Date Type Department Care Team Description 05/06/2020 Telephone Internal Medicine [address] [address] Yariel Cardoza MD [address] [place] [address] [place] [address] Test Results Allergies Active Allergy Reactions Severity Noted Date Comments Adhesive Tape 06/29/2003 Sensitive to Naproxen Hives 05/28/2015 Ivp Dye Hives 08/20/2000 Latex Other (Please comment) 01/05/2015 Contact rash Ibuprofen Rash 01/05/2015 documented as of this encounter (statuses as of 05/06/2020) Medications Medication Sig Dispensed Refills Start Date [...] 0.4 mg by mouth daily. Per [facility] ER 0 06/09/2019 Active ondansetron (ZOFRAN) 4 MG Tablet Take 4 mg by mouth every 6 hours as needed for Nausea. Per [facility] ER 0 06/09/2019 Active Sennosides (SENNA) [...] 90 Tab 1 01/21/2020 Active nystatin (NYSTOP) 643275 UNIT/GM powderIndications:C andidal skin infection Apply topically [...] as of this encounter (statuses as of 05/06/2020) Active Problems Problem Noted Date Moderate episode [...] as of this encounter (statuses as of 05/06/2020) Resolved Problems Problem Noted Date Resolved Date [...] as of this encounter (statuses as of 05/06/2020) Immunizations Name Administration Dates Next Due Pneumococcal [...] encounter Miscellaneous Notes * Telephone Encounter - Jeannie Birmingham LPN - 05/06/2020 3:12 PM EDT Pt notified of results.receptive * Telephone Encounter - Yariel Cardoza MD - 05/06/2020 2:11 PM EDT Please let patient know that her ultrasound was OK. There is a cyst in the liver but that should not cause any symptoms. There were two right kidney cysts that looked OK. documented in this encounter Plan of Treatment Upcoming Encounters Date Type Specialty Care Team Description 05/24/2020 [facility] Visit [facility] Corirna Layne RN 132 [facility] [place] [address] 06/03/2020 Office Visit Internal Medicine Hillary White PA-C [address] [place] [address] [place] [address] 07/15/2020 Office Visit Dermatology Kirstie Mcclain MD 200 [place] [address] [phone] Health Maintenance Due Date Last Done Comments Zoster Vaccines (1 of 2) 1993 *ADVANCE DIRECTIVE NOT ON FILE 12/23/2015 Influenza Vaccine (FLU shot) (#1) 2020 07/10/2019, 07/10/2019, 07/28/2018, Additional history exists COLONOSCOPY-EVERY 3 YRS AGES 18-100 03/26/2021 03/26/2018, 03/08/2015 DXA-SCREENING EVERY 7 YRS-USE SMARTSET# [id number] TO ORDER 08/17/2022 08/17/2015 DIABETES SCREEN EVERY 3 YRS-AGE 45 AND ABOVE 08/18/2022 08/18/2019, 08/09/2019, 05/12/2019, Additional history exists DTaP,Tdap,and Td Vaccines (2 - Td) 04/19/2028 04/19/2018, 05/03/2004 Pneumococcal Vaccine: 65+ Years Completed 03/28/2017, 09/21/2015 MENINGOCOCCAL (MENACTRA/MENVEO) Aged Out No longer eligible based on patient's age to complete this topic documented as of this encounter Implants Not on filedocumented as of this encounter Advance Directives Documents on File Type Date Recorded 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
--- OUTSIDE RECORDS SUMMARY | 2023-06-07 08:10 | External Medical Summary ---
Author Name Unknown Address [facility] [place] [address] Phone Organization K01:[place] [address] [place] [address] Laboratory Report Ordering Provider Test Date Status SABRA PERDOMO MD 05/06/2020 10:15:00 Final Observation Date Value Abnormality Reference (Units ) Status Gliadin peptide IgG Ser EIA-aCnc 05/09/2020 12:05 6.5 <20 (CU) Final Performing Location [place] [id number]
--- OUTSIDE RECORDS SUMMARY | 2023-06-07 08:11 | External Medical Summary | Summary of Care ---
Author Name Unknown Organization [place] [address] Care Team Providers Care Outside Collector Name Role Phone Yariel Cardoza MD Primary Care Provide r Reason for Visit * Reason Comments Medication Update Encounter Details Date Type Department Care Team Description 03/17/2020 Telephone Internal Medicine [address] [address] Yariel Cardoza MD [address] [place] [address] [place] [address] Medication Update Allergies Active Allergy Reactions Severity Noted Date Comments Adhesive Tape 06/29/2003 Sensitive to Naproxen Hives 05/28/2015 Ivp Dye Hives 08/20/2000 Latex Other (Please comment) 01/05/2015 Contact rash Ibuprofen Rash 01/05/2015 documented as of this encounter (statuses as of 03/17/2020) Medications Medication Sig Dispensed Refills Start Date [...] nostril daily. 1 Inhaler 5 05/12/2019 Active amLODIPine (NORVASC) 2.5 MG TabletIndications: HTN, goal below 140/90 Take 1 Tab by mouth daily. 90 Tab 3 05/19/2019 Active meclizine (ANTIVERT) 25 MG Tablet TAKE [...] feet 0 Active omeprazole (PRILOSEC) 20 MG CPDRIndications:Ga stroesophageal reflux disease without esophagitis TAKE ONE CAPSULE BY MOUTH TWICE DAILY 30 MINUTES PRIOR TO MORNING AND EVENING MEALS 180 Cap 1 08/27/2019 Active potassium chloride ER 10 MEQ TBCR TAKE 1 TABLET BY MOUTH EVERY DAY 90 Tab 3 09/02/2019 Active albuterol-ipratrop ium (DUONEB) 2.5-0.5 MG/3ML nebulizer solutionIndication s:COPD, severe (HCC) INHALE 3 MLS VIA NEBULIZER EVERY 4 HOURS NEEDED FOR COUGH, SHORTNESS OF BREATH OR WHEEZING. 360 mL 1 10/22/2019 Active atenolol (TENORMIN) 25 MG Tablet TAKE [...] EVERY DAY 90 Tab 2 12/26/2019 Active hydroCHLOROthiazid e (HYDRODIURIL) 25 MG Tablet TAKE 1 TABLET BY MOUTH EVERY DAY 90 Tab 1 01/21/2020 Active nystatin (NYSTOP) 501567 UNIT/GM powderIndications: Candidal skin infection Apply topically [...] WEIGHT GAIN 30 Tab 5 03/17/2020 Active furosemide (LASIX) 20 MG TabletIndications: Bilateral edema of lower extremity,Pulmonar y hypertension (HCC) TAKE 1 TABLET BY MOUTH DAILY NEEDED (SWELLING). FOR FLUID ACCUMULATION OR WEIGHT GAIN 30 Tab 5 10/10/2017 0 Discontinue d(Refill) documented as of this encounter (statuses as of 03/17/2020) Active Problems Problem Noted Date Moderate episode [...] as of this encounter (statuses as of 03/17/2020) Resolved Problems Problem Noted Date Resolved Date [...] as of this encounter (statuses as of 03/17/2020) Immunizations Name Administration Dates Next Due Pneumococcal [...] have Coronavirus / COVID-19? No / Unsure 03/10/2020 9:08 AM EDT documented as of this encounter Miscellaneous Notes * Telephone Encounter - Gracie Martino LPN - 03/17/2020 3:53 PM EDT Patient advised. * Telephone Encounter - Yariel Cardoza MD - 03/17/2020 2:48 PM EDT Sent refill. Recommend she take it daily in the morning until swelling resolved. * Telephone Encounter - Nissa Young [facility] - 03/17/2020 2:34 PM EDT Pt states that she is having continued swelling in feet despite currently taking furosemide 40mg daily. Pt admits that tablets are ( 04/11/19). Pt takes lasix only as needed. Recently started taking furosemide about a week ago because noticed swelling. There has been a little bit of improvement since starting furosemide. Pt also not sure if swelling is due to heat. Patient needs a new rx for furosemide sent to her pharmacy. Please advise and send new rx for preferred dose of furosemide if appropriate. Thank you, Nissa Young PharmD Clinical Pharmacist Telepharmacy 03/17/2020, 2:40 PM * Telephone Encounter - Alexis Perez PHARM Tech - 03/17/2020 2:31 PM EDT Pt calling in to request a dose change on theirfurosemide (LASIX) Current dose: 20 mg Requested dose: 40mg Reason for request: Patient stated she is still experiencing swelling and she is taking 2 per day Preferred pharmacy: [id number] Warm-transferred pt to pharmacist for consultation. Thank you, Alexis Perez Customer Experience Specialist [facility] 03/17/2020, 2:31 PM documented in this encounter Plan of Treatment Upcoming Encounters Date Type Specialty Care Team Description 03/18/2020 Imaging Radiology 03/28/2020 Home Visit Family Medicine [facility] [place] [address] [facility] [place] [address] [phone] 04/18/2020 [facility] Visit [facility] Corrina Layne, RN 132 [facility] [place] [address] [phone] 06/03/2020 Office Visit Internal Medicine Hillary White, PA-C [address] [place] [address] [place] [address] [phone] 07/15/2020 Office Visit Dermatology Kirstie Mcclain MD 200 [facility] [place] [address] [phone] Health Maintenance Due Date Last Done Comments Zoster Vaccines (1 of 2) 1993 *ADVANCE DIRECTIVE NOT ON FILE 12/23/2015 COLONOSCOPY-EVERY 3 YRS AGES 18-100 03/26/2021 03/26/2018, 03/08/2015 DXA-SCREENING EVERY 7 YRS-USE SMARTSET# 3348 TO ORDER 08/17/2022 08/17/2015 DIABETES SCREEN EVERY 3 YRS-AGE 45 AND ABOVE 08/18/2022 08/18/2019, 08/09/2019, 05/12/2019, Additional history exists DTaP,Tdap,and Td Vaccines (2 - Td) 04/19/2028 04/19/2018, 05/03/2004 Pneumococcal Vaccine: 65+ Years Completed 03/28/2017, 09/21/2015 Influenza Vaccine (FLU shot) Completed 01/2019, 07/10/2019, 07/28/2018, Additional history exists MENINGOCOCCAL (MENACTRA/MENVEO) Aged Out No longer eligible based on patient's age to complete this topic documented as of this encounter Implants Not on filedocumented as of this encounter Visit Diagnoses Diagnosis Bilateral edema of lower extremity Edema Pulmonary hypertension (HCC) Other chronic pulmonary heart diseases documented in this encounter Advance Directives Documents on File Type Date Recorded 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
--- OUTSIDE RECORDS SUMMARY | 2023-06-07 08:11 | External Medical Summary | Summary of Care ---
Author Name Unknown Organization [place] [address] Care Team Providers Care Aquatic Centre Manager Name Role Phone Leanne Cardoza MD Primary Care Provide r Reason for Visit * Reason Comments eRx-Medication Refill Encounter Details Date Type Department Care Team Description 04/08/2020 Refill Internal Medicine [address] [place] [id number] Leanne Cardoza MD [address] [place] [address] [place] [address] COPD, severe (HCC) Allergies Active Allergy Reactions Severity Noted Date Comments Adhesive Tape 06/29/2003 Sensitive to Naproxen Hives 05/28/2015 Ivp Dye Hives 08/20/2000 Latex Other (Please comment) 01/05/2015 Contact rash Ibuprofen Rash 01/05/2015 documented as of this encounter (statuses as of 04/11/2020) Medications Medication Sig Dispensed Refills Start Date End Date Status camphor-menthol (SARNA) 0.5-0.5 % lotion Apply topically to affected area as needed for Itching. 222 mL 3 03/30/2016 Active polyethylene glycol 3350 (MIRALAX) 255 gram powder Take 17 g by mouth daily. Two-three times per week 255 g 0 09/27/2016 Active oxygen GASIndications:Hy poxia Use 2 L/min(Oxygen) as [...] 5 05/12/2019 Active amLODIPine (NORVASC) 2.5 MG TabletIndications :HTN, goal below 140/90 Take 1 Tab by mouth daily. 90 Tab 3 05/19/2019 Active meclizine (ANTIVERT) 25 MG Tablet TAKE 1 TABLET BY MOUTH ONCE EVERY 6 HOURS NEEDED FOR DIZZINESS/VERTIGO 10 Tab 0 06/05/2019 Active Cholecalciferol 1000 units Capsule Take 2,000 Units by mouth daily. 0 Active tamsulosin (FLOMAX) 0.4 MG Capsule Take 0.4 mg by mouth daily. Per [facility] ER 0 06/09/2019 Active ondansetron (ZOFRAN) 4 MG Tablet Take 4 mg by mouth every 6 hours as needed for Nausea. Per [facility] 0 06/09/2019 Active Sennosides (SENNA) 8.6 MG CAPS Take 1 Cap by mouth as needed for Constipation (1 cap up to two times daily for constipation). 0 06/12/2019 Active HYDROcodone-aceta minophen 5-325 mg per tab 5-325 MG per tablet 0 07/14/2019 Active Urea 20 % CREA Apply topically to affected area. Apply to feet 0 Active omeprazole (PRILOSEC) 20 MG CPDRIndications:G astroesophageal reflux disease without esophagitis TAKE ONE CAPSULE [...] EVERY DAY 90 Tab 2 12/26/2019 Active hydroCHLOROthiazi de (HYDRODIURIL) 25 MG Tablet TAKE 1 TABLET BY MOUTH EVERY DAY 90 Tab 1 01/21/2020 Active nystatin (NYSTOP) 229766 UNIT/GM powderIndications :Candidal skin infection Apply topically [...] OR WHEEZING. 360 mL 1 04/11/2020 Active albuterol-ipratro pium (DUONEB) 2.5-0.5 MG/3ML nebulizer solutionIndicatio ns:COPD, severe (HCC) INHALE 3 MLS VIA NEBULIZER EVERY 4 HOURS NEEDED FOR COUGH, SHORTNESS OF BREATH OR WHEEZING. 360 mL 1 10/22/2019 04/11/20 20 Discontinued documented as of this encounter (statuses as of 04/11/2020) Active Problems Problem Noted Date Moderate episode [...] as of this encounter (statuses as of 04/11/2020) Resolved Problems Problem Noted Date Resolved Date [...] as of this encounter (statuses as of 04/11/2020) Immunizations Name Administration Dates Next Due Pneumococcal [...] have Coronavirus / COVID-19? No / Unsure 03/29/2020 6:31 AM EDT documented as of this encounter Miscellaneous Notes * Telephone Encounter - Jag Arana, [facility] - 04/11/2020 8:15 AM EDT Signed Prescriptions: Disp Refills albuterol-ipratropium (DUONEB) 2.5-0.5 MG/*360 mL 1 Sig: INHALE 3 MLS VIA NEBULIZER EVERY 4 HOURS NEEDED FOR COUGH, SHORTNESS OF BREATH OR WHEEZING.Authorizing Provider: LEANNE CARDOZA User: JAG SORIANO documented in this encounter Plan of Treatment Upcoming Encounters Date Type Specialty Care Team Description 04/18/2020 [facility] [id number] 06/03/2020 Office Visit Internal Medicine Hillary White PAKarrieC [address] [place] [address] [place] [address] 07/15/2020 Office Visit Dermatology Kirstie Mcclain MD [address] [facility] 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
--- OUTSIDE RECORDS SUMMARY | 2023-06-07 08:11 | External Medical Summary | Summary of Care ---
Author Name Unknown Organization [place] [address] Care Team Providers Care Vacuum Pan Tender Name Role Phone Leanne Cardoza MD Primary Care Provide r Reason for Visit * Reason Comments eRx-Medication Refill Encounter Details Date Type Department Care Team Description 04/29/2020 Refill Internal Medicine [address] [address] Bettye Valenzuela PA-C [address] [facility] [place] [address] [phone] HTN, goal below 140/90 Allergies Active Allergy Reactions Severity Noted Date Comments Adhesive Tape 06/29/2003 Sensitive to Naproxen Hives 05/28/2015 Ivp Dye Hives 08/20/2000 Latex Other (Please comment) 01/05/2015 Contact rash Ibuprofen Rash 01/05/2015 documented as of this encounter (statuses as of 04/30/2020) Medications Medication Sig Dispensed Refills Start Date [...] 90 Tab 1 01/21/2020 Active nystatin (NYSTOP) 964047 UNIT/GM powderIndications :Candidal skin infection Apply topically [...] EVERY DAY 90 Tab 3 04/30/2020 Active amLODIPine (NORVASC) 2.5 MG TabletIndications :HTN, goal below 140/90 Take 1 Tab by mouth daily. 90 Tab 3 05/19/2019 04/30/20 20 Discontinued documented as of this encounter (statuses as of 04/30/2020) Active Problems Problem Noted Date Moderate episode [...] as of this encounter (statuses as of 04/30/2020) Resolved Problems Problem Noted Date Resolved Date [...] as of this encounter (statuses as of 04/30/2020) Immunizations Name Administration Dates Next Due Pneumococcal [...] have Coronavirus / COVID-19? No / Unsure 04/27/2020 9:42 AM EDT documented as of this encounter Miscellaneous Notes * Telephone Encounter - Kassidy Archuleta [facility] - 04/30/2020 2:53 PM EDT Signed Prescriptions: Disp Refills amLODIPine (NORVASC) 2.5 MG Tablet 90 Tab 3 Sig: TAKE 1 TABLET BY MOUTH EVERY DAYAuthorizing Provider: LEANNE CARDOZA User: KASSIDY ARCHULETA----- documented in this encounter Plan of Treatment Upcoming Encounters Date Type Specialty Care Team Description 05/24/2020 [facility] Visit [facility]ne [facility] [address] [phone] 06/03/2020 Office Visit Internal Medicine Hillary White, PA-C [address] [place] [address] [place] [address] 07/15/2020 Office Visit Dermatology Kirstie Mcclain MD [address] [place] [address] [phone] Health Maintenance Due Date Last Done Comments [...] Documents on File Type Date Recorded 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
--- OUTSIDE RECORDS SUMMARY | 2023-06-07 08:11 | External Medical Summary | Summary of Care ---
Author Name Unknown Organization [place] [address] Care Team Providers Care Manager Wastewater Name Role Phone Yariel Cardoza MD Primary Care Provide r Reason for Visit * Reason Comments [facility]: Maintenance Encounter Details Date Type Department Care Team Description 03/28/2020 Home Visit Care Coordination [address] [place] [address] Crystal [facility] Aircraft Navigator [address] [place] [address] [phone] Allergies Active Allergy Reactions Severity Noted Date Comments Adhesive Tape 06/29/2003 Sensitive to Naproxen Hives 05/28/2015 Ivp Dye Hives 08/20/2000 Latex Other (Please comment) 01/05/2015 Contact rash Ibuprofen Rash 01/05/2015 documented as of this encounter (statuses as of 03/29/2020) Medications Medication Sig Dispensed Refills Start Date [...] 5 05/12/2019 Active amLODIPine (NORVASC) 2.5 MG TabletIndications:H TN, goal below 140/90 Take 1 Tab [...] EVERY DAY 90 Tab 3 09/02/2019 Active albuterol-ipratropi um (DUONEB) 2.5-0.5 MG/3ML nebulizer [...] 90 Tab 1 01/21/2020 Active nystatin (NYSTOP) 399328 UNIT/GM powderIndications:C andidal skin infection Apply topically [...] WEIGHT GAIN 30 Tab 5 03/17/2020 Active documented as of this encounter (statuses as of 03/29/2020) Active Problems Problem Noted Date Moderate episode [...] as of this encounter (statuses as of 03/29/2020) Resolved Problems Problem Noted Date Resolved Date [...] as of this encounter (statuses as of 03/29/2020) Immunizations Name Administration Dates Next Due Pneumococcal [...] Sign Reading Time Taken Comments Blood Pressure 110/64 03/29/2020 6:32 AM EDT Pulse 74 03/29/2020 6:32 AM EDT Temperature 36.7 C (98.1 F) 03/29/2020 6:32 AM ED T Respiratory Rate - - Oxygen Saturation 93% 03/29/2020 6:32 AM EDT Inhaled Oxygen Concentration - - Weight - - Height - - Body Mass Index - - documented in this encounter Progress Notes * [facility] - 03/25/2020 1:56 PM EDT [facility] Aircraft Navigator Visit Date: 03/28/2020 Time: 12:11 PM Name: Jayla Hayes : 1945 Source of Information: Patient Condition Changes: Are there any changes in medical condition since last visit? No Medications: Are there any changes in medication management since last visit? No Health Concerns: Does the patient have any health concerns since last visit? No BP 110/64 | Pulse 74 | Temp 98.1 | SaO2 93% CAT score = 11 Pt feels COPD is well controlled and has no symptoms unless it is hot and humid and then she just stays in. Hasn't used nebulizer in 2 weeks "it says to use as needed and I haven't needed it" Sees Dr. Soriano in May at [facility] IBS-same as always. No diarrhea/constipation. Very bloated and gassy after eating anything. Has notseen GI in a long time. Will speak to RNCM about benefits of seeing GI. Taking probiotics Still completing and returning requested documentation regarding outstanding [facility] medical bills. Plan: Notified Provider/Tester Regulatorprivate branch exchange service advisor in condition Aware of RNCM visit in April Follow Up: Patient encouraged to call the intake phone number for all urgent but not emergent issues. Scheduled to follow up with patient as needed. Kimberlee Cai 03/25/2020 2:11 PM documented in this encounter Plan of Treatment Upcoming Encounters Date Type Specialty Care Team Description 04/18/2020 Home Visit [facility] Corrina Layne RN [address] [place] [address] [phone] 06/03/2020 Office Visit Internal Medicine Hillary White, PA-C [address] [place] [address] [place] [address] [phone] 07/15/2020 Office Visit Dermatology Kirstie Mcclain MD [address] [place] [address] [phone] Health Maintenance Due Date Last Done Comments [...] Documents on File Type Date Recorded Patient Sleeve Turner Expl 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
--- OUTSIDE RECORDS SUMMARY | 2023-06-07 08:11 | External Medical Summary | Summary of Care ---
Author Name Unknown Organization [place] [address] Care Team Providers Care Chalk Tester Name Role Phone Yariel Cardoza MD Primary Care Provide r Reason for Visit * Reason Comments [facility]: Maintenance Encounter Details Date Type Department Care Team Description 04/18/2020 Home Visit [facility], [facility] [address] [place] [address] Corrina Layne RN 132 [facility] [place] [address] [phone] Allergies Active Allergy Reactions Severity Noted Date Comments Adhesive Tape 06/29/2003 Sensitive to Naproxen Hives 05/28/2015 Ivp Dye Hives 08/20/2000 Latex Other (Please comment) 01/05/2015 Contact rash Ibuprofen Rash 01/05/2015 documented as of this encounter (statuses as of 04/19/2020) Medications Medication Sig Dispensed Refills Start Date [...] Take 0.4 mg by mouth daily. Per [facility] ER 0 06/09/2019 Active ondansetron (ZOFRAN) 4 MG Tablet Take 4 mg by mouth every 6 hours as needed for Nausea. Per [facility] ER 0 06/09/2019 Active Sennosides [...] 90 Tab 1 01/21/2020 Active nystatin (NYSTOP) 310805 UNIT/GM powderIndications:C andidal skin infection Apply topically [...] OR WHEEZING. 360 mL 1 04/11/2020 Active documented as of this encounter (statuses as of 04/19/2020) Active Problems Problem Noted Date Moderate episode [...] as of this encounter (statuses as of 04/19/2020) Resolved Problems Problem Noted Date Resolved Date [...] as of this encounter (statuses as of 04/19/2020) Immunizations Name Administration Dates Next Due Pneumococcal [...] Reading Time Taken Comments Blood Pressure 120/70 04/19/2020 7:38 AM EDT Pulse 60 04/19/2020 7:38 AM EDT Temperature 36.6 C (97.8 F) 04/19/2020 7:38 AM ED T Respiratory Rate 18 04/19/2020 7:38 AM EDT Oxygen Saturation 95% 04/19/2020 7:38 AM EDT RA Inhaled Oxygen Concentration - - Weight - - Height - - Body Mass Index - - documented in this encounter Progress Notes * Corrina Layne, RN - 04/18/2020 9:00 AM EDT [facility] Medical Coding Manager Visit Date: 04/18/2020 Time: 9:26 AM Name: Jayla Hayes : 1945 Current Concerns: Patient being seen for return visit related to COPD, IBS today. No recent ED or hospital utilizations. COPD sx's stable. Using nebs/inhalers as ordered. Sees Dr Christie DONG for pulmonology-does not order rescue kits. IBS sxs stable. Has abdominal bloating with certain foods. Has been counseled by RD for dietary modifications. Looking forward to this weekend and having her family reunion at their home. RNCM to return in one month or sooner if needed. Physical Exam: BP 120/70 | Pulse 60 | Temp (Src) 97.8 (Tympanic) | Resp 18 | SaO2 95[RA[% Pain 0 Physical Exam HENT: Mouth/Throat: Mouth: Mucous membranes are moist. Pharynx: Oropharynx is clear. Neck: Musculoskeletal: Normal range of motion. Cardiovascular: Rate and Rhythm: Normal rate. Pulses: [...] Does patient take medications as ordered: Yes Independent with medications Patient Well Being: PHQ2/9: @[id number]@ Mood stable. Denies falls. Advanced Care Planning: Living Will. -5 wishes Patient's Goals of Care: 1. To stay out of the hospital 2. To have family reunion 3. Get Gi sx's under better control-IBS Reinforcement/Education: COPD: Pt instructed [...] Dosing. and Purspose. Treatment/Plan: Continue medications as ordered. Use nebs/inhalers as ordered Keep appts as scheduled. Follow dietary recommendations for IBS sx's. Elevate BLEs when sitting. RNCM return one month. Home Interventions Provided: Reinforced current Plan of Care, including self-management and medication regimen Updated Exacerbation Plan Patient's 'Red Flags': 1. Increased sob 2. Increased cough/wheezing 3. fever Patient Needs to Remember: Call [facility] at with any new or worsening health concerns or problems, red flag symptoms. Referrals Needed: None at this time Follow Up: Patient encouraged to call the intake phone number for all urgent but not emergent issues. Is the patient new to [facility] within the last 30 days? No, Assess appropriateness for upcoming telehealth visits. Cancel telehealth visits & schedule home visit with care food service team member(s)as indicated. Provider is in agreement with Plan of Care: Yes Scheduled to follow up with patient in 1 month. Corrina Layne RN 04/18/2020 9:23 AM documented in this encounter Plan of Treatment Upcoming Encounters Date Type Specialty Care Team Description 06/03/2020 Office Visit Internal Medicine Hillary White, PA-C [address] [place] [address] [place] [id number] 07/15/2020 Office Visit Dermatology Kirstie Mcclain MD [address] [facility] [place] [address] [phone] Health Maintenance Due Date Last Done Comments [...] Documents on File Type Date Recorded Patient Reordering Clerk Expl 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"
--- OUTSIDE RECORDS SUMMARY | 2023-06-07 08:12 | External Medical Summary | Summary of Care ---
Author Name Unknown Organization [place] [address] Care Team Providers Care Chief Order Dispatcher Name Role Phone Yariel Cardoza MD Primary Care Provide r Reason for Visit * Reason Comments Follow Up Encounter Details Date Type Department Care Team Description 03/03/2020 Office Visit Internal Medicine [address] [address] Yariel Cardoza MD [address] [place] [address] [place] [id number] Abdominal bloating*; Need for vaccination for zoster; Pulmonary hypertension (HCC); COPD, severe (HCC); Dyslipidemia, goal LDL below 100; HTN, goal below 140/90; Moderate episode of recurrent major depressive disorder (HCC); Severe obesity with body mass index (BMI) of 35.0 to 39.9 with serious comorbidity (HCC); RUQ pain Allergies Active Allergy Reactions Severity Noted Date Comments Adhesive Tape 06/29/2003 Sensitive to Naproxen Hives 05/28/2015 Ivp Dye Hives 08/20/2000 Latex Other (Please comment) 01/05/2015 Contact rash Ibuprofen Rash 01/05/2015 documented as of this encounter (statuses as of 03/03/2020) Medications Medication Sig Dispensed Refills Start Date [...] TWO TIMES A DAY. 3 08/03/2017 Active furosemide (LASIX) 20 MG TabletIndications: Bilateral edema of lower extremity,Pulmonar y hypertension (HCC) TAKE 1 TABLET BY MOUTH DAILY NEEDED (SWELLING). FOR FLUID ACCUMULATION OR WEIGHT GAIN 30 Tab 5 10/10/2017 Active Aspirin 81 MG Tablet Take 81 [...] 90 Tab 1 01/21/2020 Active nystatin (NYSTOP) 763709 UNIT/GM powderIndications: Candidal skin infection Apply topically [...] mouth daily. 30 Tab 5 03/03/2020 Active sertraline (ZOLOFT) 25 MG TabletIndications: Anxiety Take 2 Tabs by mouth daily. 30 Tab 2 01/22/2020 0 Discontinue d(Medicatio n/Dose Changed) documented as of this encounter (statuses as of 03/03/2020) Active Problems Problem Noted Date Moderate episode [...] as of this encounter (statuses as of 03/03/2020) Resolved Problems Problem Noted Date Resolved Date [...] as of this encounter (statuses as of 03/03/2020) Immunizations Name Administration Dates Next Due Pneumococcal [...] have Coronavirus / COVID-19? No / Unsure 03/03/2020 10:02 AM EDT documented as of this encounter Last Filed Vital Signs Vital Sign Reading Time Taken Comments Blood Pressure 120/72 03/03/2020 10:02 AM EDT Pulse 68 03/03/2020 10:02 AM EDT Temperature 37.2 C (98.9 F) 03/03/2020 10:02 AM E DT Respiratory Rate 16 03/03/2020 10:02 AM EDT Oxygen Saturation - - Inhaled Oxygen Concentration - - Weight 92.1 kg (203 lb) 03/03/2020 10:02 AM EDT Height 154.9 cm (5' 1") 03/03/2020 10:02 AM EDT Body Mass Index 38.36 03/03/2020 10:02 AM EDT documented in this encounter Patient Instructions * Patient Instructions* Yariel Cardoza MD - 03/03/2020 10:15 AM EDT BMI (Body Mass Index) is the number obtained by dividing a person's weight in kilograms by his or her height in meters squared. BMI is used in determining obesity. BMI is not used to determine a person's actual percentage of body fat, but it is a good tool to student life vice president weight in terms of what is healthy and unhealthy. It is used to identify adults at increased risk for developing weight related medical problems. Estimated body mass index is 38.36 kg/m as calculated from the following: Height as of this encounter: 1.549 m (5' 1"). Weight as of this encounter: 92.1 kg (203 lb). Obesity - BMI 35 kg/m2 to 39.9 kg/mg - Obese individuals are at a risk for developing * Heart disease * Stroke * Diabetes * High Blood Pressure * High Cholesterol * GERD (acid reflux) * Sleep Apnea * Osteoarthritis * Fatty Liver Disease * Certain Types of Cancers * Gout * Gall Bladder Disease - Weight loss has been shown to decrease weight related medical problems. - Those with a BMI 35 kg/m2 or higher are almost ten times more likely to develop diabetes in theirlifetimes than those with a normal BMI. - A 12-week weight management text message program is also available. Go to [employer] and seethe message under '[employer]' for more information and enrollment. Patient is Instructed to: Diet: * Limit total fat intake to no more than 40 grams per day (low fat diet). * Increase fruits and vegetables to 5 servings per day, combined. * Limited starches (breads, pasta, rice, potatoes, corn, cereals) to 4 servings per day. Avoid Calorie Containing Drinks: * No fruit juices, regular sodas or sweetened drinks. * Water is preferred - 64 ounces per day unless advised of a fluid restriction. * Diet sodas and drinks permitted. Keep Honest, Accurate Food logs: * www.[employer] * www.[employer] * If you bite it - write it! Weigh Yourself Weekly: * Morning is best. * Try to do this outside your home. * Have a friend/spouse remind you to weigh yourself, accountability to others helps. Perform 30 minutes of physical activity daily: * Can do all at once or 5 minutes 6 times per day * 8, 000-10,000 steps per day using a pedometer * Make it fun! documented in this encounter Progress Notes * Yariel Cardoza MD - 03/03/2020 10:14 AM EDT Subjective: Jayla Hayes is a 74 year old female. who presents for routine follow-up HPI: Brief Clinical History Ms. Hayes is a 74 year old woman last seen in Internal Medicine today (03-03-20). She has h/o COPD, COPD, severe (HCC), depression, heart failure, Moderate episode of recurrent major depressive disorder (HCC), morbid obesity, Pulmonary hypertension (HCC), and Severe obesity with body mass index (BMI) of 35.0 to 39.9 with serious comorbidity (HCC) Gets gas and bloating every time she eats. Passing gas relieves the discomfort. Denies any heartburn. Occurs all the time. Bowels are moving well and are soft. No constipation. Has had this for several years. Last EGD was 07/2018 and showed mild gastritis and a Schzatki's ring was dilated. No dysphagia. Takes simethicone and Tums. Also takes omeprazole every other day. Rare diarrhea. Gets cramping with gas and takes Bentyl. Due for colonoscopy again next year. Left hand has been itchy in the morning. The palm is itchy. No rash. Has been taking a generic allergy pill but not sure which one. Blood pressure has been good. No chest pain. Breathing has been OK except when very hot and humid. Has oxygen to use if needed. Stays in the house when really hot. Has h/o COPD. Will get shingles vaccine at the pharmacy. PHM: Patient Active Problem List Diagnosis Code [...] Current Outpatient Medications Medication Sig Dispense Refill sertraline (ZOLOFT) 50 MG Tablet Take 1 Tab by mouth daily. 30 Tab 5 zoster vac recomb adjuvanted (SHINGRIX) 50 MCG/0.5ML injection Inject 0.5 mL into a large muscle now and repeat dose in 60 to 180 days 1 Each 1 nystatin (NYSTOP) [id number] UNIT/GM powder Apply topically to affected area 3 times a day. Apply to the affected area 45 g 1 hydroCHLOROthiazide (HYDRODIURIL) 25 MG Tablet TAKE 1 TABLET BY MOUTH EVERY DAY 90 Tab 1 atorvaSTATin (LIPITOR) 20 MG Tablet TAKE 1 TABLET BY MOUTH EVERY DAY 90 Tab 2 amitriptyline (ELAVIL) 25 MG Tablet TAKE 1 TABLET BY MOUTH EVERYDAY AT BEDTIME 90 Tab 3 atenolol (TENORMIN) 25 MG Tablet TAKE 1 TABLET BY MOUTH EVERY DAY 90 Tab 3 albuterol-ipratropium (DUONEB) 2.5-0.5 MG/3ML nebulizer solution INHALE 3 MLS VIA NEBULIZER EVERY 4 HOURS NEEDED FOR COUGH, SHORTNESS OF BREATH OR WHEEZING. 360 mL 1 potassium chloride ER 10 MEQ TBCR TAKE 1 TABLET BY MOUTH EVERY DAY 90 Tab 3 omeprazole (PRILOSEC) 20 MG CPDR TAKE ONE CAPSULE BY MOUTH TWICE DAILY 30 MINUTES PRIOR TO MORNING AND EVENING MEALS 180 Cap 1 HYDROcodone-acetaminophen 5-325 mg per tab 5-325 [...] Per [facility] ER meclizine (ANTIVERT) 25 MG Tablet TAKE 1 TABLET BY MOUTH ONCE EVERY 6 HOURS NEEDED FOR DIZZINESS/VERTIGO 10 Tab 0 amLODIPine (NORVASC) 2.5 MG Tablet Take 1 Tab by mouth daily. 90 Tab 3 fluticasone (FLONASE) 50 MCG/ACT nasal spray Administer [...] Tablet Take 81 mg by mouth daily. furosemide (LASIX) 20 MG Tablet TAKE 1 TABLET BY MOUTH DAILY NEEDED (SWELLING). FOR FLUID ACCUMULATION OR WEIGHT GAIN 30 Tab 5 budesonide (PULMICORT) 0.5 MG/2ML nebulizer solution INHALE ONE UNIT DOSE VIAL VIA NEBULIZER TWO TIMES A DAY. 3 oxygen GAS Use 2 L/min(Oxygen) as directed continuous. 1 Each 0 polyethylene glycol 3350 (MIRALAX) 255 gram powder Take 17 g by mouth daily. Two-three times per week 255 g 0 camphor-menthol (SARNA) 0.5-0.5 % lotion Apply topically to affected area as needed for Itching. 222 mL 3 Urea 20 % CREA Apply topically to affected area. Apply to feet tamsulosin (FLOMAX) 0.4 MG Capsule Take 0.4 mg by mouth daily. Per [facility] ER Dextromethorphan-guaiFENesin (CORICIDIN HBP CONGESTION/COUGH) 10-200 MG CAPS Take by mouth. 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 BENIGN HYPERTENSION 01/28/2002 Bilateral carpal tunnel syndrome 07/20/2015 COPD (chronic obstructive pulmonary disease) ([facility]) COPD, severe ([facility]) 12/21/2015 COPD, severity to be determined ([facility]) 07/20/2015 Dyslipidemia, goal LDL below 100 10/16/2015 Dyslipidemia, goal LDL below 130 08/22/2015 FAM HX-CARDIOVAS DIS NEC 01/28/2002 Generalized osteoarthritis 08/22/2015 GERD (gastroesophageal reflux disease) 07/20/2015 Hypertrophy of breast 08/31/2003 IBS (irritable bowel syndrome) 07/20/2015 Kidney disease, chronic, stage III (GFR 30-59 ml/min) ([facility]) 10/16/2015 Kidney stone Lumbar degenerative disc disease 02/06/2016 Lumbar facet arthropathy ([facility]) 02/06/2016 Lumbar spinal stenosis 02/18/2017 [...] performed by Todd Kunz, DO at OR [facility] BIOPSY OF BREAST, OPEN 1972 benign, right, removed nipple for blocked milk glands BIOPSY OF BREAST, OPEN 1976 left, benign BREAST SURGERY PROCEDURE NEC bilateral Breast Reduction 09/20/03 BUNION CORRECTED WITH DOUBLE OSTEOTOMY 1991 right foot COLONOSCOPY, DIAGNOSTIC (RECTUM) 03/08/2015 adenomatous polyps, repeat 3 yrs/[facility] COLONOSCOPY, DIAGNOSTIC (RECTUM) 03/26/2018 adenomatous & serrated adenomatous polyps, repeat 3 yrs/[facility] EGD, FLEXIBLE, DIAGNOSTIC 01/21/2015 sm HH/[facility] EGD, FLEXIBLE, DIAGNOSTIC 07/22/2018 mild gastritis, Schatzki ring, duodenal polyp/[facility] ESOPHAGOSCOPY RIGID TRANSORAL HYPOPHARYNX ESOPHAGUS 2005 repair of Zenker's diverticulum HC DIGITAL BREAST TOMOSYNTHESIS; BILATERAL Bilateral 12/2019 category 2 benign, repeat 1 year LAPAROSCOPY; CHOLECYSTECTOMY 06/04/2016 laparoscopic cholecystectomy , [facility] Dr. Corey Faulkner MISCELLANEOUS ORDER 2001 implant [...] Relation Age of Onset Heart Disorder Father [place] age 55 Heart Disorder Mother CAD, 84 in '02 Arthritis Mother in fingers Diabetes Brother half brother Stroke Aunt (Unspecified) 80's Stroke Uncle (Unspecified) 60's Family Status Relation Status Fa at age 55 [place], smoked Mo at age 96 unknown cause Zandra Alive Irina Son Alive Son Alive Bro (Not Specified) AUNT (Not Specified) UNCLE (Not Specified) Social History Tobacco Use Smoking status: Former Smoker Packs/day: 1.75 Years: 38.00 Pack years: 66.50 Types: Cigarettes Last attempt to quit: 10/07/1995 Years since quittin.4 Smokeless tobacco: Never Used Tobacco comment: quit in 1995 Substance Use Topics Alcohol use: No Vaping/E-Cigarette Use Vaping/E-Cigarette Substances Vaping/E-Cigarette Devices CBC Results: CBC/DIFF Grisel Dt/Tm Resulted Value Status WBC (K/uL) 08/18/19 11:10A 08/18/19 13.11* F RBC (M/uL) 08/18/19 11:10A 08/18/19 4.62 F HGB (g/dL) 08/18/19 11:10A 08/18/19 13.4 F HCT (%) 08/18/19 11:10A 08/18/19 43.4 F MCV (fL) 08/18/19 11:10A 08/18/19 93.9 F MCH (pg) 08/18/19 11:10A 08/18/19 29.0 F MCHC (g/dL) 08/18/19 11:10A 08/18/19 30.9* F RDW (%) 08/18/19 11:10A 08/18/19 14.6 F PLATELET COUNT (K/uL) 08/18/19 11:10A 08/18/19 286 F MPV (fL) 08/18/19 11:10A 08/18/19 9.0 F NRBC'S (/100 WBCs) 08/18/19 11:10A 08/18/19 0 F NEUTS (%) 08/18/19 11:10A 08/18/19 69.4 F LYMPHS (%) 08/18/19 11:10A 08/18/19 12.8* F MONOS (%) 08/18/19 11:10A 08/18/19 11.9* F EOS (%) 08/18/19 11:10A 08/18/19 1.1 F BASOS (%) 08/18/19 11:10A 08/18/19 0.5 F IMMATURE GRANULOCYTE (%) 08/18/19 11:10A 08/18/19 4.3* F ABS. NEUTS (K/uL) 08/18/19 11:10A 08/18/19 9.09* F ABS. LYMPHS (K/uL) 08/18/19 11:10A 08/18/19 1.68 F ABS. MONOS (K/uL) 08/18/19 11:08/18/19 1.56* F ABS. EOS (K/uL) 08/18/19 11:08/18/19 0.15 F ABS. BASOS (K/uL) 08/18/19 11:08/18/19 0.07 F ABSOLUTE IMMATURE GRANULOCYTES (K/uL) 08/18/19 11:08/18/19 0.56* F Basic Panel Results: BASIC METAB PANEL, BMP Grisel Dt/Tm Resulted Value Status BUN (mg/dL) 08/18/19 11:08/18/19 14 F CREATININE (mg/dL) 08/18/19 11:08/18/19 0.8 F E GLOM FILT RATE ( ) 08/18/19 11:08/18/19 >60.0 F SODIUM (mmol/L) 08/18/19 11:08/18/19 146 F POTASSIUM (mmol/L) 08/18/19 11:08/18/19 3.7 F CHLORIDE (mmol/L) 08/18/19 11:08/18/19 101 F CO2 (mmol/L) 08/18/19 11:08/18/19 31 F ANION GAP (mmol/L) 08/18/19 11:08/18/19 14 F GLUCOSE (mg/dL) 08/18/19 11:08/18/19 90 F CALCIUM (mg/dL) 08/18/19 11:08/18/19 9.6 F ALT Results: ALT(U/L) Grisel Dt/Tm Resulted Value Status 07/28/18 2:30P 07/28/18 22 FINAL 09/12/17 10:17A 09/12/17 16 FINAL 04/17/17 10:53A 04/17/17 21 FINAL TSH(uIU/mL) Grisel Dt/Tm Resulted Value Status 04/17/17 10:53A 04/17/17 0.69 FINAL 06/19/16 3:29P 06/19/16 1.57 FINAL 01/28/02 9:06A 01/28/02 2.15 FINAL Lipid Panel Results: LIPID PANEL WITH DIRECT LDL IF TG ABOVE 150 MG/DL Grisel Dt/Tm Resulted Value Status HOURS FASTING (hours) 08/18/19 11:10A 08/18/19 NOT FASTING F TRIGLYCERIDES (mg/dL) 08/18/19 11:10A 08/18/19 188* F CHOLESTEROL (mg/dL) 08/18/19 11:10A 08/18/19 135 F HDL (mg/dL) 08/18/19 11:10A 08/18/19 34* F NON-HDL CHOLESTEROL (mg/dL) 08/18/19 11:10A 08/18/19 101 F LDL DIRECT(REFLEX) (mg/dL) 08/18/19 11:10A 08/18/19 70 F Review of Systems: General: No change in weight, No weakness, No fatigue and No fevers, sweats, or chills Head: No significant headache and No recent significant head injury Eyes: No recent significant change in vision and No eye pain, redness, discharge, or excessive tearing Ears: No recent change in hearing, No tinnitus or vertigo, No ear pain and No ear discharge Nose: No h/o frequent colds or sinusitis and + seasonal allergies Throat/Oropharynx: No teeth or gum problems, No bleeding gums, No tongue complaints, No sore throatand No recent change in voice or hoarseness Respiratory: No cough, sputum, or hemoptysis, No wheezing, No recent change in breathing and +COPD Cardiac: No chest pain, No shortness of breath, No orthopnea, No paroxysmal nocturnal dyspnea, No edema, No palpitations and No syncope Gastrointestinal: +as per HPI Urinary: No urinary frequency, No dysuria and No hematuria Musculoskeletal: No joint pain or stiffness and No muscle pains or cramps Objective: BP 120/72 | Pulse 68 | Temp (Src) 98.9 (Tympanic) | Resp 16 | Ht 5' 1" (1.549m) | Wt 203 lbs (92.080kg) | BMI 38.36 kg/m | BSA 1.99 m Physical Exam: General: alert, healthy, no distress, well nourished, well developed and obese Head: Normocephalic, No masses, lesions, tenderness or abnormalities Eye Exam: PERRLA, EOMI, Conjunctiva are pink and non-injected, sclera clear Ears: External ears normal, Canals clear, TM's Normal Heart: regular rate & rhythm, no murmurs and no gallops Lungs: chest symmetric with normal AP diameter, no chest deformities noted, no chest wall tenderness, lungs clear to auscultation Abdomen: no masses or organomegaly, no rebound or guarding and +tenderness of RUQ and firm, obese abdomen with slightly increased bowel sounds Extremities: no edema, no clubbing, no cyanosis Neuro Exam: alert & oriented x 3 with fluent speech, no focal motor/sensory deficits ASSESSMENT/PLAN: Abdominal bloating (Primary)--longstanding abdominal bloating. Check labs. Had cholecystectomy in past but is tender over RUQ. Advised to start probiotic. Check labs and ultrasound. - CBC/DIFF; Future; Expected date: 03/03/2020 - COMPR METAB PANEL; Future; Expected date: 03/03/2020 - US ABDOMEN LIMITED Need for vaccination for zoster - zoster vac recomb adjuvanted (SHINGRIX) 50 MCG/0.5ML injection; Inject 0.5 mL into a large musclenow and repeat dose in 60 to 180 days Pulmonary hypertension (HCC)--stable. Follows with pulmonary at [facility]. Has oxygen to use as needed. COPD, severe (HCC)--stable. Continue inhalers. Follows with pulmonary. Dyslipidemia, goal LDL below 100--controlled with atorvastatin. HTN, goal below 140/90--controlled. Moderate episode of recurrent major depressive disorder (HCC)--controlled with sertraline. - sertraline (ZOLOFT) 50 MG Tablet; Take 1 Tab by mouth daily. Severe obesity with body mass index (BMI) of 35.0 to 39.9 with serious comorbidity (HCC)--Patient counseling on weight management given. RUQ pain--as above - CBC/DIFF; Future; Expected date: 03/03/2020 - COMPR METAB PANEL; Future; Expected date: 03/03/2020 - US ABDOMEN LIMITED Follow Up: Return in about 3 months (around 06/03/2020) for Clinic Visit. | For: Clinic Visit | Check-out note: Schedule abd u/s Yariel Cardoza MD documented in this encounter Nursing Notes * Maria Antonia Whiteside LPN - 03/03/2020 10:03 AM EDT here 3 mo f/u, difficult breathing in warm weather documented in this encounter Plan of Treatment Upcoming Encounters Date Type Specialty Care Team Description 03/07/2020 Home Visit [facility] Corrina Layne RN [address] [facility] [place] [address] [phone] 03/14/2020 Imaging Radiology 06/03/2020 Office Visit Internal Medicine Hillray White PA-C [address] [place] [address] [place] [address] [phone] 07/15/2020 Office [facility] [address] [facility] [address] [phone] Scheduled Orders Name Type Priority Associated Diagnoses Orde r Schedule CBC/DIFF Lab Routine RUQ pain Abdominal bloating Expected: 03/03/2020 (Approximate), Expires: 03/03/2021 COMPR METAB PANEL Lab Routine RUQ pain Abdominal bloating Expected: 03/03/2020 (Approximate), Expires: 03/03/2021 US ABDOMEN LIMITED Medical Imaging Routine RUQ pain Abdominal bloating Ordered: 03/03/2020 Health Maintenance Due Date Last Done Comments [...] of this encounter Visit Diagnoses Diagnosis Abdominal bloating- Primary Flatulence, eructation, and gas pain Need for vaccination for zoster Need for prophylactic vaccination and inoculation against other viral diseases Pulmonary hypertension (HCC) Other chronic pulmonary heart diseases COPD, severe (HCC) Chronic airway obstruction, not elsewhere classified Dyslipidemia, goal LDL below 100 Other and unspecified hyperlipidemia HTN, goal below 140/90 Unspecified essential hypertension Moderate episode of recurrent major depressive disorder (HCC) Severe obesity with body mass index (BMI) of 35.0 to 39.9 with serious comorbidity (HCC) RUQ pain Abdominal pain, right upper quadrant documented in this encounter Advance Directives Documents on File Type Date Recorded Patient Sheet Tester Expl 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
--- OUTSIDE RECORDS SUMMARY | 2023-06-07 08:12 | External Medical Summary | Summary of Care ---
Author Name Unknown Organization [place] [address] Care Team Providers Care Scientist Engineer Name Role Phone Yariel Cardoza MD Primary Care Provide r Reason for Visit * Reason Comments [facility]: Maintenance Encounter Details Date Type Department Care Team Description 03/07/2020 Home Visit [facility], [facility] [address] [place] [address] Corrina Layne RN 132 [facility] [place] [address] [phone] Allergies Active Allergy Reactions Severity Noted Date Comments Adhesive Tape 06/29/2003 Sensitive to Naproxen Hives 05/28/2015 Ivp Dye Hives 08/20/2000 Latex Other (Please comment) 01/05/2015 Contact rash Ibuprofen Rash 01/05/2015 documented as of this encounter (statuses as of 03/07/2020) Medications Medication Sig Dispensed Refills Start Date [...] 3 08/03/2017 Active furosemide (LASIX) 20 MG TabletIndications:B ilateral [...] 90 Tab 1 01/21/2020 Active nystatin (NYSTOP) 095128 UNIT/GM powderIndications:C andidal skin infection Apply topically [...] Gum Dosing Unit by mouth. 0 Active documented as of this encounter (statuses as of 03/07/2020) Active Problems Problem Noted Date Moderate episode [...] as of this encounter (statuses as of 03/07/2020) Resolved Problems Problem Noted Date Resolved Date [...] as of this encounter (statuses as of 03/07/2020) Immunizations Name Administration Dates Next Due Pneumococcal [...] have Coronavirus / COVID-19? No / Unsure 03/07/2020 10:13 AM EDT documented as of this encounter Last Filed Vital Signs Vital Sign Reading Time Taken Comments Blood Pressure 130/80 03/07/2020 10:13 AM EDT Pulse 76 03/07/2020 10:13 AM EDT Temperature 37.2 C (98.9 F) 03/07/2020 10:13 AM E DT Respiratory Rate 18 03/07/2020 10:13 AM EDT Oxygen Saturation 95% 03/07/2020 10:13 AM EDT RA Inhaled Oxygen Concentration - - Weight - - Height - - Body Mass Index - - documented in this encounter Progress Notes * Corrina Layne RN - 03/07/2020 8:41 AM EDT [facility] Finish Production Manager Visit Date: 03/07/2020 Time: 9:30 AM Name: Jayla Hayes : 1945 Current Concerns: Patient seen for monthly follow up. Patient dx COPD/Pulmonary HTN. No acute concerns noted today. Patient is using nebs/inhalers as ordered. Sees Dr Soriano for pulmonology. Does not order rescue kits No sx's of kidney stones. Voiding without pain or hematuria. IBS symptoms stable. Has abdominal bloating commonly after eating. Started taking probiotic again. Physical Exam: BP 130/80 | Pulse 76 | Temp (Src) 98.9 (Tympanic) | Resp 18 | Wt (0.000kg) | SaO2 95[RA[% Pain 0 Physical Exam Problems/Symptoms: Review of Systems Medication Reconciliation: (See medication list) Does patient take medications as ordered: Yes Patient Well Being: PHQ2/9: @[id number]@ Within normal limits. Advanced Care Plannin Wishes Patient's Goals of Care: 1. To stay out of the hospital 2. To have family reunion 3. Get gi sx's under better control-IBS Reinforcement/Education: Educated on home safety: Create a fall proof home ? Clear floors of clutter, loose wires, throw rugs, and cords. ? Make sure halls, stairways, and entrances are well lit. ? Install a nightlight in your bedroom, hallway and bathroom. ? Install grab bars or handrails in the bathroom and on stairs. ? Use a non-skid tub/shower mat. ? Avoid climbing on a chair; instead use a step stool with a high handrail. ? Keep sidewalks and steps in good repair ? Keep steps and sidewalks free of snow and ice. Using aids to support and prevent falls ? If you have poor balance or have fallen in the past, consider additional support such as a cane or walker. ? Use a cane with good support and that is the proper length for you. ? Use a walker if a cane doesnt provide enough support. Avoid medications that increase the risk of falling by causing dizziness, change in sensation orslowed reflexes. ? Certain medicines may cause falls blood pressure pills, heart medicines, water pills, or sleeping pills. ? Be sure to understand each medicine that [...] -Avoid triggers -Clean inhalers once a week Reviewed emergency preparedness plan. Re-inforced social distancing guidelines. Discussed infectioncontrol, frequent hand hygiene, not touching face, not allowing sick caregivers/family to visit. asadequate food and medications in home for next several weeks. Pt knows to call [facility] if patient is having any acute sx's or having trouble with adequate meds, food, supplies. Informed pt of mail order options should the need arise. Reinforced safety education and fall prevention. and Reinforced medication regimen. Timing., Dosing. and Purspose. Treatment/Plan: Continue all meds as ordered. Limit foods that may cause GI distress Continue nebs/ inhalers as ordered Fall precautions. Keep all follow up appointments LYN in 3 weeks, RNCM in 6 weeks. Home Interventions Provided: Reinforced current Plan of Care, including self-management and medication regimen Updated Exacerbation Plan Patient's 'Red Flags': 1. Increase SOB 2. Increased cough/wheeze 3. fever Patient Needs to Remember: Call [facility] at with any new or worsening health concerns or problems, red flag symptoms. Referrals Needed: None Follow Up: Patient encouraged to call the intake phone number for all urgent but not emergent issues. Is the patient new to [facility] within the last 30 days? No, Assess appropriateness for upcoming telehealth visits. Cancel telehealth visits & schedule home visit with care customer solutions teammate(s)as indicated. Provider is in agreement with Plan of Care: Yes Scheduled to follow up with patient in 6 weeks. Corrina Layne RN 03/07/2020 9:30 AM documented in this encounter Plan of Treatment Upcoming Encounters Date Type Specialty Care Team Description 03/14/2020 Imaging Radiology 03/28/2020 Home Visit Family Medicine [place], [place], Community Health Risk Advisor [address] [place] [address] [phone] 04/18/2020 [facility] Visit [facility] Corrina Layne RN 132 [place] [address] [phone] 06/03/2020 Office Visit Internal Medicine Hillary White, PA-C [address] [place] [address] [place] [address] [phone] 07/15/2020 Office Visit Dermatology Kirstie Mcclain MD 200 [place] [address] [phone] Health Maintenance Due Date Last Done Comments [...] Documents on File Type Date Recorded 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
--- OUTSIDE RECORDS SUMMARY | 2023-06-07 08:12 | External Medical Summary | Summary of Care ---
Author Name Unknown Organization [place] [address] Care Team Providers Care Concept Artist Name Role Phone Yariel Cardoza MD Primary Care Provide r Reason for Visit * Reason Comments eRx-Medication Refill Encounter Details Date Type Department Care Team Description 03/16/2020 Refill [facility], [facility] 132 [facility] [place] [id number] Jade Castillo MD [address] [place] [address] [place] [id number] Moderate episode of recurrent major depressive disorder [...] 90 Tab 1 01/21/2020 Active nystatin (NYSTOP) 018823 UNIT/GM powderIndications:C andidal skin infection Apply topically [...] Notes * Telephone Encounter - Jag Arana, [facility] - 03/17/2020 8:57 AM EDT Refused Prescriptions: Disp Refills sertraline (ZOLOFT) 50 MG Tablet [Pharmacy*30 Tab 1 Sig: TAKE 1TABLET BY MOUTH EVERY DAYRefused By: JAG SORIANO for Refusal: Other (comment below)Reason for Refusal Comment: approved, sent and received 03/03/20 documented in this encounter Plan of Treatment Upcoming Encounters Date Type Specialty Care Team Description 03/18/2020 Imaging Radiology 03/28/2020 Home Visit Family Medicine [place], [place], Community Health Package Handler [address] [place] [address] [phone] 04/18/2020 Home Visit [facility] Corrina Layne RN [address] [place] [address] [phone] 06/03/2020 Office Visit Internal Medicine Hillary White PAAc [address] [place] [address] [facility] [address] [phone] 07/15/2020 Office Visit Dermatology Kirstie Mcclain MD [address] [place] [address] [phone] Health Maintenance Due Date Last Done Comments [...] Documents on File Type Date Recorded 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
--- OUTSIDE RECORDS SUMMARY | 2023-06-07 08:12 | External Medical Summary | Summary of Care ---
Author Name Unknown Organization [place] [address] Care Team Providers Care Model Set Artist Name Role Phone Yariel Cardoza MD Primary Care Provide r Reason for Visit * Reason Comments Status Check Encounter Details Date Type Department Care Team Description 03/09/2020 Telephone Internal Medicine [address] [place] [address] Yariel Cardoza MD [address] [place] [address] [place] [address] Status Check Allergies Active Allergy Reactions Severity Noted Date Comments Adhesive Tape 06/29/2003 Sensitive to Naproxen Hives 05/28/2015 Ivp Dye Hives 08/20/2000 Latex Other (Please comment) 01/05/2015 Contact rash Ibuprofen Rash 01/05/2015 documented as of this encounter (statuses as of 03/09/2020) Medications Medication Sig Dispensed Refills Start Date [...] mouth daily. Per [facility] 0 06/09/2019 Active ondansetron (ZOFRAN) 4 MG Tablet Take 4 mg by mouth every 6 hours as needed for Nausea. Per [facility] 0 06/09/2019 Active [...] 90 Tab 1 01/21/2020 Active nystatin (NYSTOP) 351479 UNIT/GM powderIndications:C andidal skin infection Apply topically [...] as of this encounter (statuses as of 03/09/2020) Active Problems Problem Noted Date Moderate episode [...] as of this encounter (statuses as of 03/09/2020) Resolved Problems Problem Noted Date Resolved Date [...] as of this encounter (statuses as of 03/09/2020) Immunizations Name Administration Dates Next Due Pneumococcal [...] encounter Miscellaneous Notes * Telephone Encounter - Milly Jenkins PHARM Tech - 03/09/2020 8:05 AM EDT Pt calling to request refills on the Rx for simvastatin . Informed pt that there are valid refills on file at their pharmacy. Pt verbalized understanding and stated they will check with their pharmacy regarding this medication. Thank you, Milly Jenkins Coater [employer] [facility] 03/09/2020, 8:05 AM documented in this encounter Plan of Treatment Upcoming Encounters Date Type Specialty Care Team Description 03/14/2020 Imaging Radiology 03/28/2020 Home Visit Family Medicine [place], Community Health Stitcher Around [address] [place] [address] [phone] 04/18/2020 [facility] Visit [facility] [place] Corrina Layne RN 132 [facility] [place] [address] [phone] 06/03/2020 Office Visit Internal Medicine Hillary White PA-C [address] [place] [address] [place] [address] [phone] 07/15/2020 Office Visit Dermatology Kirstie Mcclain MD 200 [place] [address] [phone] Health Maintenance Due Date Last Done Comments [...] Documents on File Type Date Recorded 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
--- OUTSIDE RECORDS SUMMARY | 2023-06-07 08:12 | External Medical Summary | Summary of Care ---
Author Name Unknown Organization [place] [address] Care Team Providers Care Weatherization Director Name Role Phone Yariel Cardoza MD Primary Care Provide r Reason for Visit * Reason Comments eRx-Medication Refill Medication Refill Encounter Details Date Type Department Care Team Description 01/06/2020 Refill [facility], [place] 132 [facility] [place] [address] Yariel Cardoza MD [address] [place] [address] [place] [address] [phone] Allergies Active Allergy Reactions Severity Noted Date Comments Adhesive Tape 06/29/2003 Sensitive to Naproxen Hives 05/28/2015 Ivp Dye Hives 08/20/2000 Latex Other (Please comment) 01/05/2015 Contact rash Ibuprofen Rash 01/05/2015 documented as of this encounter (statuses as of 01/22/2020) Medications Medication Sig Dispensed Refills Start Date [...] TWO TIMES A DAY. 3 08/03/2017 Active triamcinolone acetonide (ARISTOCORT) 0.025 % ointment APPLY TOPICALLY TO AFFECTED AREA TWICE DAILY 0 06/20/2017 Active furosemide (LASIX) 20 MG TabletIndications :Bilateral [...] mouth daily. Per [facility] 0 06/09/2019 Active ondansetron (ZOFRAN) 4 MG Tablet Take 4 mg by mouth every 6 hours as needed for Nausea. Per [facility] 0 06/09/2019 Active Sennosides (SENNA) 8.6 [...] EVERY DAY 90 Tab 3 09/02/2019 Active albuterol-ipratro pium (DUONEB) 2.5-0.5 MG/3ML nebulizer solutionIndicatio ns:COPD, severe (HCC) INHALE 3 MLS VIA NEBULIZER EVERY 4 HOURS NEEDED FOR COUGH, SHORTNESS OF BREATH OR WHEEZING. 360 mL 1 10/22/2019 Active sertraline (ZOLOFT) 25 MG Tablet Take 1 Tab by mouth daily. 30 Tab 5 11/17/2019 Active atenolol (TENORMIN) 25 MG Tablet TAKE [...] BY MOUTH EVERY DAY 90 Tab 1 08/03/2019 01/21/20 20 Discontinued documented as of this encounter (statuses as of 01/22/2020) Active Problems Problem Noted Date Moderate episode of recurrent major depr essive disorder 06/19/2019 HTN, goal below 140/90 08/09/2017 Pulmonary hypertension 05/07/2017 Lumbar spinal stenosis 02/18/2017 Primary osteoarthritis of right knee Multiple thyroid nodules 09/09/2016 Rhinitis, nonallergic 03/30/2016 Urinary, incontinence, stress female Lumbar degenerative disc disease 016 Lumbar facet arthropathy 02/06/2016 COPD, severe 12/21/2015 Dyslipidemia, goal LDL below 100 016 Slow transit constipation 07/20/2015 IBS (irritable bowel syndrome) 5 Gastroesophageal reflux disease without esophagitis 07/20/2015 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) 07/20/2015 Bilateral carpal tunnel syndrome 015 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 documented as of this encounter (statuses as of 01/22/2020) Resolved Problems Problem Noted Date Resolved Date Impaired fasting glucose 03/15/2017 018 Thyroid nodule 09/05/2016 01/07/2017 ETD (eustachian tube dysfunction) 03/30/2016 08/26/2018 Pruritic disorder 03/30/2016 08/26/2018 Severe obesity with body mas s index (BMI) of 35.0 to 39.9 with serious comorbidity 01/19/2016 08/26/2018 Overview: ICD-10 update of inactive diagnosis Kidney disease, chronic, stage III (GFR 30-59 ml /min) 10/16/2015 08/09/2017 Allergic rhinitis 09/21/2015 03/30/2016 Kidney stone 08/22/2015 07/28/2018 Dyslipidemia, goal LDL below 130 08/22/2015 10/16/2015 Generalized osteoarthritis 08/22/201503/30 Tubular adenoma of colon 07/20/2015 018 COPD, severity to be determined 07/20/2015 12/21/2015 [...] as of this encounter (statuses as of 01/22/2020) Immunizations Name Administration Dates Next Due Pneumococcal [...] have Coronavirus / COVID-19? No / Unsure 12/28/2019 5:24 PM EDT documented as of this encounter Miscellaneous Notes * Telephone Encounter - Sharon Malone, VIR[facility] - 01/22/2020 11:44 AM EDT Patient calling stating that she has not had her sertraline for 2 weeks. Patient states that she is to be taking 50 MG tablets. Patient's medication list states that she was on 25 MG but that it was her mistake because she toldthe pharmacy that it was to be 25 MG. Patient states that she has been taking 2 25 MG tablets. Patient is asking for a refill of the sertraline for 50 MG be sent to her pharmacy. * Telephone Encounter - Jovita Burton RPh - 01/06/2020 9:10 AM EDT Refused Prescriptions: Disp Refills sertraline (ZOLOFT) 50 MG Tablet [Pharmacy*30 Tab 5 Sig: TAKE 1 TABLET BY MOUTH EVERY DAYRefused By: JOVITA BURTONason for Refusal: Other (comment below)Reason for Refusal Comment: dose change 07/10/19 * Telephone Encounter - Jovita Burton RPh - 01/06/2020 9:08 AM EDT Dose changed to Sertraline 25mg once daily in July 2019. Patient was given 6 month supply of newdose in November 2019. 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
--- OUTSIDE RECORDS SUMMARY | 2023-06-07 08:12 | External Medical Summary | Summary of Care ---
Author Name Unknown Organization [place] [address] Care Team Providers Care Heart Coordinator Name Role Phone Yariel Cardoza MD Primary Care Provide r Reason for Visit * Reason Comments Rash Encounter Details Date Type Department Care Team Description 02/26/2020 Office Visit Internal Medicine [address] [place] [address] Jade Castillo MD [address] [place] [address] [facility] [address] Candidal skin infection*; COPD, severe (HCC); Moderate episode of recurrent major depressive disorder (HCC); HTN, goal below 140/90; Multiple thyroid nodules; Gastroesophageal reflux disease without esophagitis; Dyslipidemia, goal LDL below 100 Allergies Active Allergy Reactions Severity Noted Date Comments Adhesive Tape 06/29/2003 Sensitive to Naproxen Hives 05/28/2015 Ivp Dye Hives 08/20/2000 Latex Other (Please comment) 01/05/2015 Contact rash Ibuprofen Rash 01/05/2015 documented as of this encounter (statuses as of 02/26/2020) Medications Medication Sig Dispensed Refills Start Date [...] [facility] 0 06/09/2019 Active Sennosides (SENNA) 8.6 [...] EVERY DAY 90 Tab 1 01/21/2020 Active sertraline (ZOLOFT) 25 MG TabletIndications: Anxiety Take 2 Tabs by mouth daily. 30 Tab 2 01/22/2020 Active nystatin (NYSTOP) 833345 UNIT/GM powderIndications: Candidal skin infection Apply topically to affected area 3 times a day. Apply to the affected area 45 g 1 02/26/2020 Active triamcinolone acetonide (ARISTOCORT) 0.025 % ointment APPLY TOPICALLY TO AFFECTED AREA TWICE DAILY 0 06/20/2017 0 Discontinue d(End of Procedure) documented as of this encounter (statuses as of 02/26/2020) Active Problems Problem Noted Date Moderate episode [...] as of this encounter (statuses as of 02/26/2020) Resolved Problems Problem Noted Date Resolved Date [...] as of this encounter (statuses as of 02/26/2020) Immunizations Name Administration Dates Next Due Pneumococcal [...] have Coronavirus / COVID-19? No / Unsure 02/26/2020 12:46 PM EDT documented as of this encounter Last Filed Vital Signs Vital Sign Reading Time Taken Comments Blood Pressure 122/82 02/26/2020 12:41 PM EDT Pulse 72 02/26/2020 12:41 PM EDT Temperature 37.4 C (99.3 F) 02/26/2020 12:41 PM E DT Respiratory Rate 16 02/26/2020 12:41 PM EDT Oxygen Saturation - - Inhaled Oxygen Concentration - - Weight 92.1 kg (203 lb) 02/26/2020 12:41 PM EDT Height - - Body Mass Index 38.36 06/19/2019 10:45 AM EDT documented in this encounter Progress Notes * Jade Castillo MD - 02/26/2020 12:51 PM EDT Subjective: HPI: Jayla Hayes is a 74 year old female with hx of HLD, HTN, IBS, GERD seen for Rash near the lower abd crease and b/l groin: - noticed it few weeks ago - tried gold hou powder: helped a little but re-occur - denied any fever, abd pain, N/V - used to have skin yeast infection on/off Patient has been verbally educated on the need or importance of Immunizations: shingles Patient Active Problem List Diagnosis Code Slow transit constipation K59.01 IBS (irritable bowel syndrome) K58.9 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 Bilateral carpal tunnel syndrome G56.03 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 Dyslipidemia, goal LDL below 100 E78.5 COPD, severe (HCC) J44.9 Lumbar degenerative disc disease M51.36 Lumbar facet arthropathy M47.816 Urinary, incontinence, stress female N39.3 Rhinitis, nonallergic J31.0 Multiple thyroid nodules E04.2 Lumbar spinal stenosis M48.061 Primary osteoarthritis of right knee M17.11 Pulmonary hypertension (HCC) I27.20 HTN, goal below 140/90 I10 Moderate episode of recurrent major depressive disorder (HCC) F33.1 Current Outpatient Medications Medication Sig Dispense Refill nystatin (NYSTOP) 646613 UNIT/GM powder Apply topically to affected area 3 times a day. Apply to the affected area 45 g 1 sertraline (ZOLOFT) 25 MG Tablet Take 2 Tabs by mouth daily. 30 Tab 2 hydroCHLOROthiazide (HYDRODIURIL) 25 MG Tablet TAKE 1 [...] mg per tab 5-325 MG per tablet Urea 20 % CREA Apply topically to affected area. Apply to feet Sennosides (SENNA) 8.6 MG CAPS Take 1 Cap by mouth as needed for Constipation (1 cap up to two times daily for constipation). Cholecalciferol 1000 units Capsule Take 2,000 Units by mouth daily. ondansetron (ZOFRAN) 4 MG Tablet Take 4 mg by mouth every 6 hours as needed for Nausea. Per [facility] tamsulosin (FLOMAX) 0.4 MG Capsule Take 0.4 mg by mouth daily. Per [facility] meclizine (ANTIVERT) 25 MG Tablet TAKE [...] HOURS NEEDED FOR WHEEZING. 1 Inhaler 5 furosemide (LASIX) 20 MG Tablet TAKE 1 [...] as needed for Itching. 222 mL 3 Aspirin 81 MG Tablet Take 81 mg by mouth daily. 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 BENIGN HYPERTENSION 01/28/2002 Bilateral carpal tunnel syndrome 07/20/2015 COPD (chronic obstructive pulmonary disease) (HCC) COPD, severe ([facility]) 12/21/2015 COPD, severity to be determined ([facility]) 07/20/2015 Dyslipidemia, goal LDL below 100 10/16/2015 Dyslipidemia, goal LDL below 130 08/22/2015 FAM HX-CARDIOVAS DIS NEC 01/28/2002 Generalized osteoarthritis 08/22/2015 GERD (gastroesophageal reflux disease) 07/20/2015 Hypertrophy of breast 08/31/2003 IBS (irritable bowel syndrome) 07/20/2015 Kidney disease, chronic, stage III (GFR 30-59 ml/min) ([facility]) 10/16/2015 Kidney stone Lumbar degenerative disc disease 02/06/2016 Lumbar facet arthropathy ([facility]) 02/06/2016 Lumbar spinal stenosis 02/18/2017 Mixed incontinence urge and stress (male)(female) 07/20/2015 Multiple thyroid nodules 09/09/2016 Obesity, Class II, BMI 35.0-39.9, with comorbidity (see actual BMI) 01/19/2016 Primary osteoarthritis of right knee 02/18/2017 Pulmonary hypertension ([facility]) 05/07/2017 Reflux esophagitis 01/28/2002 Slow transit constipation 07/20/2015 Thyroid nodule 09/05/2016 Tubular adenoma of colon 07/20/2015 Urge incontinence 05/03/2004 Urinary, incontinence, stress female 02/21/2016 Past Surgical History: Procedure Laterality Date ARTHROCENT ASP &/OR INJ MAJOR JX/BURSA W/O US 04/06/2019 ARTHROCENTESIS OR INJECTION MAJOR JOINT performed by Todd Johnson Cousins, DO at OR [facility] BIOPSY OF BREAST, OPEN 1971 benign, right, removed nipple for blocked milk glands BIOPSY OF BREAST, OPEN 1976 left, benign BREAST SURGERY PROCEDURE NEC bilateral Breast Reduction 09/20/03 BUNION CORRECTED WITH DOUBLE OSTEOTOMY 1991 right foot COLONOSCOPY, DIAGNOSTIC (RECTUM) 03/08/2015 adenomatous polyps, repeat 3 yrs/[facility] COLONOSCOPY, DIAGNOSTIC (RECTUM) 03/26/2018 adenomatous & serrated adenomatous polyps, repeat 3 yrs/[facility] EGD, FLEXIBLE, DIAGNOSTIC 01/21/2015 [facility] EGD, FLEXIBLE, DIAGNOSTIC 07/22/2018 mild gastritis, Schatzki ring, duodenal polyp/[facility] ESOPHAGOSCOPY RIGID TRANSORAL HYPOPHARYNX ESOPHAGUS 2004 repair [...] Relation Age of Onset Heart Disorder Father [place] age 55 Heart Disorder Mother CAD, 84 [...] placed or performed in visit on 08/18/19 BASIC METAB PANEL, BMP Result Value Ref Range BUN 14 6 - 20 mg/dL CREATININE 0.8 0.5 - 1.0 mg/dL E GLOM FILT RATE >60.0 >60 SODIUM 146 135 - 146 mmol/L POTASSIUM 3.7 3.5 - 5.1 mmol/L CHLORIDE 101 98 - 107 mmol/L CO2 31 22 - 32 mmol/L ANION GAP 14 7 - 15 mmol/L GLUCOSE 90 70 - 120 mg/dL CALCIUM 9.6 8.4 - 10.2 mg/dL CBC/DIFF Result Value Ref Range WBC 13.11 (H) 4.00 - 10.80 K/uL RBC 4.62 3.85 - 5.15 M/uL HGB 13.4 12.0 - 15.3 g/dL HCT 43.4 36.0 - 45.2 % MCV 93.9 81.5 - 97.5 fL MCH 29.0 27.0 - 34.0 pg MCHC 30.9 (L) 32.0 - 36.0 g/dL RDW 14.6 11.5 - 15.5 % PLATELET COUNT 286 140 - 400 K/uL MPV 9.0 6.6 - 11.1 fL NRBC'S 0 0 /100 WBCs NEUTS 69.4 40 - 75 % LYMPHS 12.8 (L) 18 - 42 % MONOS 11.9 (H) 1 - 11 % EOS 1.1 0 - 6 % BASOS 0.5 0 - 2 % IMMATURE GRANULOCYTE 4.3 (H) 0 - 2 % ABS. NEUTS 9.09 (H) 1.8 - 7.7 K/uL ABS. LYMPHS 1.68 1.0 - 4.8 K/uL ABS. MONOS 1.56 (H) 0.0 - 1.1 K/uL ABS. EOS 0.15 0.0 - 0.7 K/uL ABS. BASOS 0.07 0.0 - 0.2 K/uL ABSOLUTE IMMATURE GRANULOCYTES 0.56 (H) 0.0 - 0.2 K/uL LIPID PANEL WITH DIRECT LDL IF TG ABOVE 150 MG/DL Result Value Ref Range HOURS FASTING NOT FASTING hours TRIGLYCERIDES 188 (H) 0 - 174 mg/dL CHOLESTEROL 135 <200 mg/dL HDL 34 (L) >49 mg/dL NON-HDL CHOLESTEROL 101 0 - 159 mg/dL LDL DIRECT(REFLEX) 70 0 - 129 mg/dL Review of Systems Skin: Positive for rash. All other systems reviewed and are negative. OBJECTIVE: BP 122/82 | Pulse 72 | Temp (Src) 99.3 (Tympanic) | Resp 16 | Wt 203 lbs (92.080kg) | BMI 38.36 kg/m | BSA 1.99 m PHYSICAL EXAM: Vitals are reviewed General:. NAD, well developed HEENT:. Normal Conjunctiva, EOMI Skin: - scaling surrounding the erythematous skin near the lower abd crease (panniculus) and b/l groin - no streaking or swelling or drainage MSK:. Normal gait Psych:. AAOx3, normal affect ASSESSMENT/PLAN: Candidal skin infection (Primary) - no sign of cellulitis - will treat with nystatin powder - nystatin (NYSTOP) 667518 UNIT/GM powder; Apply topically to affected area 3 times a day. Apply tothe affected area COPD, severe (HCC) - stable on current regimen Moderate episode of recurrent major depressive disorder (HCC) - stable HTN, goal below 140/90 - bp is wnl Multiple thyroid nodules - last TSH wnl Gastroesophageal reflux disease without esophagitis - stable Dyslipidemia, goal LDL below 100 - last LDL was below goal Jade Castillo MD Internal Medicine [address] [address] documented in this encounter Nursing Notes * Maria Antonia Whiteside LPN - 02/26/2020 12:44 PM EDT Itchiness belly fold, noticed blood when cleaning area, uses gold hou powder documented in this encounter Plan of Treatment Upcoming Encounters Date Type Specialty Care Team Description 03/03/2020 Office Visit Internal Medicine Yariel Cardoza MD [address] [place] [address] [place] [address] [phone] 03/07/2020 [facility] Visit [facility] Corrina Layne RN [address] [place], [place] [id number] 07/15/2020 Office Visit Dermatology Kirstie Mcclain MD [address] [place] [address] [phone] Health Maintenance Due Date Last Done Comments [...] as of this encounter Visit Diagnoses Diagnosis Candidal skin infection- Primary Candidiasis of skin and nails COPD, severe (HCC) Chronic airway obstruction, not elsewhere classified Moderate episode of recurrent major depressive disorder (HCC) HTN, goal below 140/90 Unspecified essential hypertension Multiple thyroid nodules Nontoxic multinodular goiter Gastroesophageal reflux disease without esophagitis Esophageal reflux Dyslipidemia, goal LDL below 100 Other and unspecified hyperlipidemia documented in this encounter Advance Directives Documents on File Type Date Recorded Patient Principal Programmer Expl 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"
--- OUTSIDE RECORDS SUMMARY | 2023-06-07 08:12 | External Medical Summary | Summary of Care ---
Author Name Unknown Organization [place] [address] Care Team Providers Care Belt Puncher Name Role Phone Yariel Cardoza MD Primary Care Provide r Reason for Visit * Reason Comments eRx-Medication Refill Medication Refill Encounter Details Date Type Department Care Team Description 01/06/2020 Refill [facility] [place] [facility] [address] [facility] [place] [address] Yariel Cardoza MD [address] [place] [address] [place] [address] [phone] Allergies Active Allergy Reactions Severity Noted Date [...] [facility] Corrina Layne, RN [address] [place] [address] [phone] 03/03/2020 Office Visit Internal Medicine Yariel Cardoza MD [address] [place] [address] [place] [address] [phone] 07/15/2020 Office Visit Dermatology Kirstie Mcclain MD [address] [place] [address], [place] [address] [phone] Health Maintenance Due Date Last Done Comments [...] on File Type Date Recorded Patient Clinical Assistant Expl 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
--- OUTSIDE RECORDS SUMMARY | 2023-06-07 08:12 | External Medical Summary | Summary of Care ---
Author Name Unknown Organization [place] [address] Care Team Providers Care Tool And Die Maker Apprentice Name Role Phone Yariel Cardoza MD Primary Care Provide r Reason for Visit * Reason Comments eRx-Medication Refill Medication Refill Encounter Details Date Type Department Care Team Description 01/06/2020 Refill [facility] [place] [facility] 132 [facility] [place] [id number] Yariel Cardoza MD [address] [place] [address] [place] [id number] Anxiety* Allergies Active Allergy Reactions Severity Noted Date [...] as needed for Itching. 222 mL 3 6 Active polyethylene glycol 3350 (MIRALAX) 255 gram powder Take 17 g by mouth daily. Two-three times per week 255 g 0 6 Active oxygen GASIndications:H ypoxia Use 2 L/min(Oxygen) as directed continuous. 1 Each 0 7 Active budesonide (PULMICORT) 0.5 MG/2ML nebulizer solution INHALE ONE UNIT DOSE VIAL VIA NEBULIZER TWO TIMES A DAY. 3 7 Active triamcinolone acetonide (ARISTOCORT) 0.025 % ointment APPLY TOPICALLY TO AFFECTED AREA TWICE DAILY 0 7 Active furosemide (LASIX) 20 MG TabletIndication s:Bilateral edema of lower extremity,Pulmon delfin hypertension (HCC) TAKE 1 TABLET BY MOUTH DAILY NEEDED (SWELLING). FOR FLUID ACCUMULATION OR WEIGHT GAIN 30 Tab 5 8 Active Aspirin 81 MG Tablet Take 81 [...] abdominal pain 120 Cap 5 9 Active fluticasone (FLONASE) 50 MCG/ACT nasal spray Administer 2 Sprays into each nostril daily. 1 Inhaler 5 9 Active amLODIPine (NORVASC) 2.5 MG TabletIndication s:HTN, goal below 140/90 Take 1 Tab by mouth daily. 90 Tab 3 9 Active meclizine (ANTIVERT) 25 MG Tablet TAKE 1 TABLET BY MOUTH ONCE EVERY 6 HOURS NEEDED FOR DIZZINESS/VERTIG O 10 Tab 0 9 Active Cholecalciferol 1000 units Capsule Take 2,000 Units by mouth daily. 0 Active tamsulosin (FLOMAX) 0.4 MG Capsule Take 0.4 mg by mouth daily. Per [facility] 0 9 Active ondansetron (ZOFRAN) 4 MG Tablet Take 4 mg by mouth every 6 hours as needed for Nausea. Per [facility] 0 9 Active Sennosides (SENNA) 8.6 MG CAPS Take 1 Cap by mouth as needed for Constipation (1 cap up to two times daily for constipation). 0 9 Active HYDROcodone-acet aminophen 5-325 mg per tab 5-325 MG per tablet 0 9 Active Urea 20 % CREA Apply topically to affected area. Apply to feet 0 Active omeprazole (PRILOSEC) 20 MG CPDRIndications: Gastroesophageal reflux disease without esophagitis TAKE ONE CAPSULE BY MOUTH TWICE DAILY 30 MINUTES PRIOR TO MORNING AND EVENING MEALS 180 Cap 1 9 Active potassium chloride ER 10 MEQ TBCR TAKE 1 TABLET BY MOUTH EVERY DAY 90 Tab 3 9 Active albuterol-ipratr opium (DUONEB) 2.5-0.5 MG/3ML nebulizer solutionIndicati ons:COPD, severe (HCC) INHALE 3 MLS VIA NEBULIZER EVERY 4 HOURS NEEDED FOR COUGH, SHORTNESS OF BREATH OR WHEEZING. 360 mL 1 0 Active atenolol (TENORMIN) 25 MG Tablet TAKE 1 TABLET BY MOUTH EVERY DAY 90 Tab 3 0 Active amitriptyline (ELAVIL) 25 MG TabletIndication s:Irritable bowel syndrome with both constipation and diarrhea,Moderat e episode of recurrent major depressive disorder (HCC) TAKE 1 TABLET BY MOUTH EVERYDAY AT BEDTIME 90 Tab 3 0 Active atorvaSTATin (LIPITOR) 20 MG TabletIndication s:Dyslipidemia, goal LDL below 100 TAKE 1 TABLET BY MOUTH EVERY DAY 90 Tab 2 0 Active sertraline (ZOLOFT) 25 MG TabletIndication s:Anxiety Take 2 Tabs by mouth daily. 30 Tab 2 0 Active hydroCHLOROthiaz riky (HYDRODIURIL) 25 MG Tablet TAKE 1 TABLET BY MOUTH EVERY DAY 90 Tab 1 9 01/21/20 20 Discontinued sertraline (ZOLOFT) 25 MG Tablet Take 1 Tab by mouth daily. 30 Tab 5 0 01/22/20 20 Discontinued(Med ication/Dose Changed) documented as of this encounter (statuses [...] encounter Miscellaneous Notes * Addendum Note - Aria Castillo MD - 01/22/2020 3:28 PM EDT Addended by: ARIA CASTILLO on: 01/22/2020 03:28 PM Modules accepted: Orders * Telephone Encounter - Aria Castillo MD - 01/22/2020 3:26 PM EDT Spoke to the pt and confirmed that she is taking zoloft 50mg daily. Refill sent * Telephone Encounter - Sharon Malone OSA - 01/22/2020 11:44 AM EDT Patient calling [...] to her pharmacy. * Telephone Encounter - Destiny Burton RPh - 01/06/2020 9:10 AM EDT Refused Prescriptions: Disp Refills sertraline (ZOLOFT) 50 MG Tablet [Pharmacy*30 Tab 5 Sig: TAKE 1TABLET BY MOUTH EVERY DAYRefused By: DESTINY BURTON for Refusal: Other (comment below)Reason for Refusal Comment: dose change 07/10/19 * Telephone Encounter - Destiny Burton RPh - 01/06/2020 9:08 AM EDT Dose changed to Sertraline 25mg once daily in July 2019. Patient was given 6 month supply of newdose in November 2019. documented in this encounter Plan of Treatment Upcoming Encounters Date Type Specialty Care Team Description 01/25/2020 Home Visit [facility] Corrina Layne RN [address] [place] [address] [phone] 03/03/2020 Office Visit Internal Medicine Yariel Cardoza MD [address] [place] [address] [place] [phone] 07/15/2020 Office Visit Dermatology Kirstie Mcclain MD [address] [facility] [place] [address] [phone] Health Maintenance Due Date Last Done Comments [...] as of this encounter Visit Diagnoses Diagnosis Anxiety- Primary Anxiety state, unspecified documented in this encounter Advance Directives Documents on File Type Date Recorded Patient 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
--- OUTSIDE RECORDS SUMMARY | 2023-06-07 08:12 | External Medical Summary | Summary of Care ---
Author Name Unknown Organization [place] [address] Care Team Providers Care Tow Operator Name Role Phone Yariel Cardoza MD Primary Care Provide r Reason for Visit * Reason Comments [facility]: Maintenance Encounter Details Date Type Department Care Team Description 01/25/2020 Home Visit [facility] [address] [place] [address] Corrina Layne RN [address] [facility] [place] [address] [phone] Allergies Active Allergy Reactions Severity Noted Date Comments Adhesive Tape 06/29/2003 Sensitive to Naproxen Hives 05/28/2015 Ivp Dye Hives 08/20/2000 Latex Other (Please comment) 01/05/2015 Contact rash Ibuprofen Rash 01/05/2015 documented as of this encounter (statuses as of 01/26/2020) Medications Medication Sig Dispensed Refills Start Date [...] 0 06/20/2017 Active furosemide (LASIX) 20 MG TabletIndications:B ilateral [...] 1 01/21/2020 Active sertraline (ZOLOFT) 25 MG TabletIndications:A nxiety Take 2 Tabs by mouth daily. 30 Tab 2 01/22/2020 Active documented as of this encounter (statuses as of 01/26/2020) Active Problems Problem Noted Date Moderate episode [...] as of this encounter (statuses as of 01/26/2020) Resolved Problems Problem Noted Date Resolved Date [...] as of this encounter (statuses as of 01/26/2020) Immunizations Name Administration Dates Next Due Pneumococcal [...] have Coronavirus / COVID-19? No / Unsure 01/25/2020 10:35 AM EDT documented as of this encounter Last Filed Vital Signs Vital Sign Reading Time Taken Comments Blood Pressure 118/82 01/25/2020 10:35 AM EDT Pulse 72 01/25/2020 10:35 AM EDT Temperature 37.1 C (98.7 F) 01/25/2020 10:35 AM E DT Respiratory Rate 18 01/25/2020 10:35 AM EDT Oxygen Saturation 94% 01/25/2020 10:35 AM EDT Inhaled Oxygen Concentration - - Weight - - Height - - Body Mass Index - - documented in this encounter Progress Notes * Shahrzad Kaur RN - 01/25/2020 10:31 AM [facility] Automotive Refinisher Monthly Visit Date: 01/25/2020 Time: 9:00 AM Name: Jayla Hayes : 1945 Current Concerns: Patient seen for monthly follow up. Patient dx COPD/Pulmonary HTN. Patient reports feeling fine. VS WNL- Lungs clear but diminished SOB with mod exertion Mild nonpitting edema to BLE Denies pain Appetite good Under left breast excoriation noted- Patient applied monistat cream daily and reports effectiveness Physical Exam: There were no vitals taken for this visit. Pain 0 Physical Exam Constitutional: Appearance: Normal appearance. HENT: Nose: Nose normal. Neck: Musculoskeletal: Normal range of motion. Cardiovascular: Rate and Rhythm: Normal rate. Pulses: Normal pulses. Heart sounds: Normal heart sounds. Pulmonary: Effort: Pulmonary effort is normal. Abdominal: General: Bowel sounds are normal. Musculoskeletal: Normal range of motion. Neurological: Mental Status: She is alert. Problems/Symptoms: Review of Systems HENT: Negative. Respiratory: Positive for shortness of breath. Slightly diminished Cardiovascular: Positive for leg swelling (mild nonpitting edema). Gastrointestinal: Negative. Endocrine: Negative. Genitourinary: Negative. Musculoskeletal: Positive for arthralgias. Allergic/Immunologic: Negative. Neurological: Negative. Hematological: Negative. Psychiatric/Behavioral: Negative. Medication Reconciliation: (See medication list) Does patient take medications as ordered: Yes Patient Well Being: PHQ2/9: @[id number]@ Within normal limits Advanced Care Planning: Five wishes Reinforcement/Education: Educated on home safety: ? Create [...] face, not allowing sick caregivers/family to visit. Has adequate food and medications in home for next several weeks. Pt knows to call [facility] if patient is having any acute sx's or having trouble with adequate meds, food, supplies. Informed pt of mail order options should the need arise. Treatment/Plan: Continue medications as prescribed. Continue neb/inhalers as per order Report any s/sx of COPD exacerbation RNCM to follow up in 6 weeks. Patient's 'Red Flags': 1. Increase SOB, Fever 2. Abdominal pain Patient Needs to Remember: Call [facility] with any new/worsening health concerns or problems. Referrals Needed: N/A Follow Up: Patient encouraged to call the intake phone number for all urgent but not emergent issues. Is the patient new to [facility] Home within the last 30 days? No Provider is in agreement with Plan of Care: Yes Scheduled to follow up with patient in 1 month. 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
--- OUTSIDE RECORDS SUMMARY | 2023-06-07 08:12 | External Medical Summary | Summary of Care ---
Author Name Unknown Organization [place] [address] Care Team Providers Care Bank Sales And Service Manager Name Role Phone Yariel Cardoza MD Primary Care Provide r Reason for Visit * Reason Comments eRx-Medication Refill Encounter Details Date Type Department Care Team Description 01/21/2020 Refill [facility] [address] [facility] [place] [id number] Yariel Cardoza MD [address] [place] [address] [place] [id number] Allergies Active Allergy Reactions Severity Noted Date [...] [facility] ER 0 06/09/2019 Active Sennosides (SENNA) [...] EVERY DAY 90 Tab 1 01/21/2020 Active documented as of this encounter (statuses [...] Notes * Telephone Encounter - Vipul Apple [facility] - 01/22/2020 9:49 AM EDT Refused Prescriptions: Disp Refills sertraline (ZOLOFT) 50 MG Tablet [Pharmacy*30 Tab 5 Sig: TAKE 1TABLET BY MOUTH EVERY DAYRefused By: VIPUL APPLE raya for Refusal: Course of treatment compl ete documented in this encounter Plan of Treatment Upcoming Encounters Date Type Specialty Care Team Description 01/25/2020 [facility] Visit [facility] Corrina Layne, RN [address] [place] [address] [phone] 03/03/2020 Office Visit Internal Medicine Yariel Cardoza MD [address] [place] [address] [place] [address] [phone] 07/15/2020 Office Visit Dermatology Kirstie Mcclain MD 200 [place] [address] [phone] Health Maintenance Due Date Last Done Comments [...] Documents on File Type Date Recorded Patient Dietary Tech Expl 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
--- OUTSIDE RECORDS SUMMARY | 2023-06-07 08:13 | External Medical Summary | Summary of Care ---
Author Name Unknown Organization [place] [address] Care Team Providers Care Refrigerating Engineer Name Role Phone Leanne Cardoza MD Primary Care Provide r Reason for Visit * Reason Comments eRx-Medication Refill Encounter Details Date Type Department Care Team Description 12/04/2019 Refill Internal Medicine [address] [place] [address] Leanne Cardoza MD [address] [place] [address] [place] [address] Allergies Active Allergy Reactions Severity Noted Date Comments Adhesive Tape 06/29/2003 Sensitive to Naproxen Hives 05/28/2015 Ivp Dye Hives 08/20/2000 Latex Other (Please comment) 01/05/2015 Contact rash Ibuprofen Rash 01/05/2015 documented as of this encounter (statuses as of 12/05/2019) Medications Medication Sig Dispensed Refills Start Date [...] mouth daily. 90 Tab 3 05/19/2019 Active atorvaSTATin (LIPITOR) 20 MG TabletIndications :Dyslipidemia, goal LDL below 100 TAKE 1 TABLET BY MOUTH EVERY DAY 90 Tab 0 05/22/2019 Active meclizine (ANTIVERT) 25 MG Tablet TAKE [...] times daily for constipation). 0 06/12/2019 Active amitriptyline (ELAVIL) 25 MG TabletIndications :Irritable bowel syndrome with both constipation and diarrhea,Moderate episode of recurrent major depressive disorder (HCC) Take 1 Tab by mouth at bedtime. 30 Tab 5 07/10/2019 Active HYDROcodone-aceta minophen 5-325 mg per tab 5-325 MG per tablet 0 07/14/2019 Active Urea 20 % CREA Apply topically to affected area. Apply to feet 0 Active hydroCHLOROthiazi de (HYDRODIURIL) 25 MG Tablet TAKE 1 TABLET BY MOUTH EVERY DAY 90 Tab 1 08/03/2019 Active omeprazole (PRILOSEC) 20 MG CPDRIndications:G astroesophageal [...] EVERY DAY 90 Tab 3 12/05/2019 Active atenolol (TENORMIN) 25 MG Tablet TAKE 1 TABLET BY MOUTH EVERY DAY 90 Tab 1 05/30/2019 12/05/19 20 Discontinued documented as of this encounter (statuses as of 12/05/2019) Active Problems Problem Noted Date Moderate episode [...] as of this encounter (statuses as of 12/05/2019) Resolved Problems Problem Noted Date Resolved Date [...] as of this encounter (statuses as of 12/05/2019) Immunizations Name Administration Dates Next Due Pneumococcal [...] file Travel History Travel Start Travel End documented as of this encounter Miscellaneous Notes * Telephone Encounter - Vipul Apple, [facility] - 12/05/2019 2:20 PM EST Signed Prescriptions: Disp Refills atenolol (TENORMIN) 25 MG Tablet 90 Tab 3 Sig: TAKE 1 TABLET BY MOUTH EVERY DAYAuthorizing Provider: LEANNE CARDOZA User: VIPUL APPLE------- documented in this encounter Plan of Treatment Upcoming Encounters Date Type Specialty Care Team Description 12/18/2019 [facility] [place] [address] [phone] 03/03/2020 Office Visit Internal Medicine Leanne Cardoza MD [address] [place] [address] [place] [address] [phone] Health Maintenance Due Date Last Done Comments [...] Documents on File Type Date Recorded Patient Desulfurizer Hand Expl 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
--- OUTSIDE RECORDS SUMMARY | 2023-06-07 08:13 | External Medical Summary | Summary of Care ---
Author Name Unknown Organization [place] [address] Care Team Providers Care Borematic Operator Name Role Phone Yariel Cardoza MD Primary Care Provide r Reason for Visit * Reason Comments eRx-Medication Refill Encounter Details Date Type Department Care Team Description 01/06/2020 Refill [facility] 132 [facility] [place] [id number] Yariel Cardoza MD [address] [place] [address] [place] [phone] Allergies Active Allergy Reactions Severity Noted Date Comments Adhesive Tape 06/29/2003 Sensitive to Naproxen Hives 05/28/2015 Ivp Dye Hives 08/20/2000 Latex Other (Please comment) 01/05/2015 Contact rash Ibuprofen Rash 01/05/2015 documented as of this encounter (statuses as of 01/06/2020) Medications Medication Sig Dispensed Refills Start Date [...] 0.4 mg by mouth daily. Per [facility] ER 0 06/09/2019 Active ondansetron (ZOFRAN) 4 MG Tablet Take 4 mg by mouth every 6 hours as needed for Nausea. Per [facility] ER 0 06/09/2019 Active Sennosides (SENNA) 8.6 MG CAPS Take 1 Cap by mouth as needed for Constipation (1 cap up to two times daily for constipation). 0 06/12/2019 Active HYDROcodone-acetami nophen 5-325 mg per tab 5-325 MG per tablet 0 07/14/2019 Active Urea 20 % CREA Apply topically to affected area. Apply to feet 0 Active hydroCHLOROthiazide (HYDRODIURIL) 25 MG Tablet TAKE 1 TABLET BY MOUTH EVERY DAY 90 Tab 1 08/03/2019 Active omeprazole (PRILOSEC) 20 MG CPDRIndications:Gas troesophageal [...] EVERY DAY 90 Tab 2 12/26/2019 Active documented as of this encounter (statuses as of 01/06/2020) Active Problems Problem Noted Date Moderate episode [...] as of this encounter (statuses as of 01/06/2020) Resolved Problems Problem Noted Date Resolved Date [...] as of this encounter (statuses as of 01/06/2020) Immunizations Name Administration Dates Next Due Pneumococcal [...] encounter Miscellaneous Notes * Telephone Encounter - Jovita Burton RPh - 01/06/2020 9:10 AM EDT Refused Prescriptions: Disp Refills sertraline (ZOLOFT) 50 MG Tablet [Pharmacy*30 Tab 5 Sig: TAKE 1TABLET BY MOUTH EVERY DAYRefused By: JOVITA BURTON for Refusal: Other (comment below)Reason for [...] RN 132 [facility] [place] [address] [phone] 03/03/2020 Office Visit Internal Medicine Yariel Cardoza MD [address] [place] [address] [place] [address] 07/15/2020 Office Visit Dermatology Kirstie Mcclain MD 200 [facility] [place] [address] [phone] Health Maintenance Due Date Last Done Comments [...] Documents on File Type Date Recorded Patient Assembler Sandal Parts Expl 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
--- OUTSIDE RECORDS SUMMARY | 2023-06-07 08:13 | External Medical Summary | Summary of Care ---
Author Name Unknown Organization [place] [address] Care Team Providers Care Pump Mechanic Name Role Phone Yariel Cardoza MD Primary Care Provide r Reason for Visit * Reason Comments [facility]: Maintenance Encounter Details Date Type Department Care Team Description 12/01/2019 Scheduled Telephone [facility] 132 [facility] [place] [address] [facility] Public Relations Senior Associate 132 [facility] [place] [address] [phone] Allergies Active Allergy Reactions Severity Noted Date Comments Adhesive Tape 06/29/2003 Sensitive to Naproxen Hives 05/28/2015 Ivp Dye Hives 08/20/2000 Latex Other (Please comment) 01/05/2015 Contact rash Ibuprofen Rash 01/05/2015 documented as of this encounter (statuses as of 12/01/2019) Medications Medication Sig Dispensed Refills Start Date [...] 3 05/19/2019 Active atorvaSTATin (LIPITOR) 20 MG TabletIndications:D yslipidemia, goal LDL below 100 TAKE 1 TABLET BY MOUTH EVERY DAY 90 Tab 0 05/22/2019 Active atenolol (TENORMIN) 25 MG Tablet TAKE 1 TABLET BY MOUTH EVERY DAY 90 Tab 1 05/30/2019 Active meclizine (ANTIVERT) 25 MG Tablet TAKE [...] 0 06/12/2019 Active amitriptyline (ELAVIL) 25 MG TabletIndications:I rritable bowel syndrome with both constipation and diarrhea,Moderate episode of recurrent major depressive disorder (HCC) Take 1 Tab by mouth at bedtime. 30 Tab 5 07/10/2019 Active HYDROcodone-acetami nophen 5-325 mg per tab [...] mouth daily. 30 Tab 5 11/17/2019 Active documented as of this encounter (statuses as of 12/01/2019) Active Problems Problem Noted Date Moderate episode [...] as of this encounter (statuses as of 12/01/2019) Resolved Problems Problem Noted Date Resolved Date [...] as of this encounter (statuses as of 12/01/2019) Immunizations Name Administration Dates Next Due Pneumococcal [...] encounter Miscellaneous Notes * Telephone Encounter - [facility] Public Relations Senior Associate - 12/01/2019 9:52 AM EST Returned call that pt requested She has the documents requested by [facility] department but does not know where to send them. Directed pt to find a [facility] bill for the address to mail the information. documented in this encounter Plan of Treatment Upcoming Encounters Date Type Specialty Care Team Description 12/18/2019 [facility] Visit [facility] Corrina Layne RN 132 [facility] [place] [address] [phone] 03/03/2020 Office Visit Internal Medicine Yariel Cardoza MD [address] [place] [address] [place] [address] [phone] Health Maintenance Due Date Last Done Comments [...] Documents on File Type Date Recorded Patient Aircraft Maintenance Instructor Expl 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
--- OUTSIDE RECORDS SUMMARY | 2023-06-07 08:13 | External Medical Summary | Summary of Care ---
Author Name Unknown Organization [place] [address] Care Team Providers Care County Program Technician Name Role Phone Leanne Cardoza MD Primary Care Provide r Reason for Visit * Reason Comments eRx-Medication Refill Encounter Details Date Type Department Care Team Description 12/06/2019 Refill [facility] [address] [place] [id number] Leanne Cardoza MD [address] [place] [address] [place] [phone] Irritable bowel syndrome with both constipation and diarrhea; Moderate episode of recurrent major depressive disorder (HCC) Allergies Active Allergy Reactions Severity Noted Date Comments Adhesive Tape 06/29/2003 Sensitive to Naproxen Hives 05/28/2015 Ivp Dye Hives 08/20/2000 Latex Other (Please comment) 01/05/2015 Contact rash Ibuprofen Rash 01/05/2015 documented as of this encounter (statuses as of 12/07/2019) Medications Medication Sig Dispensed Refills Start Date [...] 0.4 mg by mouth daily. Per [facility] ER 0 06/09/2019 Active ondansetron (ZOFRAN) 4 MG Tablet Take 4 mg by mouth every 6 hours as needed for Nausea. Per [facility] ER 0 06/09/2019 Active Sennosides (SENNA) 8.6 [...] AT BEDTIME 90 Tab 3 12/07/2019 Active amitriptyline (ELAVIL) 25 MG TabletIndications :Irritable bowel syndrome with both constipation and diarrhea,Moderate episode of recurrent major depressive disorder (HCC) Take 1 Tab by mouth at bedtime. 30 Tab 5 07/10/2019 12/07/19 20 Discontinued documented as of this encounter (statuses as of 12/07/2019) Active Problems Problem Noted Date Moderate episode [...] as of this encounter (statuses as of 12/07/2019) Resolved Problems Problem Noted Date Resolved Date [...] as of this encounter (statuses as of 12/07/2019) Immunizations Name Administration Dates Next Due Pneumococcal [...] Notes * Telephone Encounter - Vipul Apple, [facility] - 12/07/2019 12:01 PM EST Signed Prescriptions: Disp Refills amitriptyline (ELAVIL) 25 MG Tablet 90 Tab 3 Sig: TAKE 1 TABLET BY MOUTH EVERYDAY AT BEDTIMEAuthorizing Provider: LEANNE CARDOZAOrderronald User: VIPUL APPLE documented in this encounter Plan of Treatment Upcoming Encounters Date Type Specialty Care Team Description 12/18/2019 [facility] Visit [facility] Corrina Layne RN 132 [facility] [place] [address] [phone] 03/03/2020 Office Visit Internal Medicine Leanne Cardoza MD [address] [place] [address] [place] [address] [phone] Health Maintenance Due Date Last Done Comments [...] Documents on File Type Date Recorded Patient Flamer Sealer Expl 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
--- OUTSIDE RECORDS SUMMARY | 2023-06-07 08:13 | External Medical Summary | Summary of Care ---
Author Name Unknown Organization [place] [address] Care Team Providers Care Lead Radiologic Technologist Name Role Phone Yariel Cardoza MD Primary Care Provide r Reason for Visit * Reason Comments [facility]: Maintenance Encounter Details Date Type Department Care Team Description 12/18/2019 [facility] Visit [facility] [address] [place] [address] Corrina Layne RN 132 [facility] [place] [address] [phone] Allergies Active Allergy Reactions Severity Noted Date Comments Adhesive Tape 06/29/2003 Sensitive to Naproxen Hives 05/28/2015 Ivp Dye Hives 08/20/2000 Latex Other (Please comment) 01/05/2015 Contact rash Ibuprofen Rash 01/05/2015 documented as of this encounter (statuses as of 12/18/2019) Medications Medication Sig Dispensed Refills Start Date [...] AT BEDTIME 90 Tab 3 12/07/2019 Active documented as of this encounter (statuses as of 12/18/2019) Active Problems Problem Noted Date Moderate episode [...] as of this encounter (statuses as of 12/18/2019) Resolved Problems Problem Noted Date Resolved Date [...] as of this encounter (statuses as of 12/18/2019) Immunizations Name Administration Dates Next Due Pneumococcal [...] Travel End documented as of this encounter Last Filed Vital Signs Vital Sign Reading Time Taken Comments Blood Pressure 118/70 12/18/2019 10:47 AM EDT Pulse 80 12/18/2019 10:47 AM EDT Temperature 36.8 C (98.3 F) 12/18/2019 10:47 AM E DT Respiratory Rate 18 12/18/2019 10:47 AM EDT Oxygen Saturation 93% 12/18/2019 10:47 AM EDT RA Inhaled Oxygen Concentration - - Weight - - Height - - Body Mass Index - - documented in this encounter Progress Notes * Corrina Layne RN - 12/18/2019 10:49 AM EDT [facility] Smog Technician Visit Date: 12/18/2019 9:00 am Name: Jayla Hayes : 1945 Current Concerns: Pt seen for follow up related to COPD, HTN, IBS Has all COPD medications. No increase in respiratory sx's at this time. Had flu vaccine this year. IBS-symptoms stable Has had more edema lately, although. Has trace to +1 edema of feet, ankles. Re- instructed on low sodium diet. Pt agrees she will try to comply. Instructed to notify [facility] if swelling continues or is associated with elevated blood pressure, sob or is using her prn furosemide more frequently, more than 2xweek. Scheduled to see Dr Andrews 12/31/19 for foot care. Problems/Symptoms: Review of Systems Constitutional: Negative for activity change and appetite change. HENT: Negative. Eyes: Negative. Respiratory: Negative for cough and wheezing. Cardiovascular: Negative. Gastrointestinal: Negative for abdominal distention, abdominal pain, blood in stool, constipation (intermittent), diarrhea, nausea and vomiting. Endocrine: Negative. Genitourinary: Negative for decreased urine volume, difficulty urinating, dysuria, flank pain, frequency, hematuria and urgency. Musculoskeletal: Negative. Skin: Negative. Allergic/Immunologic: Negative. Neurological: Negative. Hematological: Negative. Psychiatric/Behavioral: Negative. Physical Exam: BP 118/70 | Pulse 80 | Temp (Src) 98.3 (Tympanic) | Resp 18 | SaO2 93[RA[% Pain 0 Physical Exam Constitutional: She is oriented to person, place, and time. She appears well- developed and well-nourished. HENT: Head: Normocephalic. Eyes: Pupils are equal, round, and reactive to light. Neck: Normal range of motion. Cardiovascular: Normal rate, regular rhythm, normal heart sounds and intact distal pulses. Pulmonary/Chest: Effort normal and breath sounds normal. No respiratory distress. She has no wheezes. She has no rales. Abdominal: Soft. Bowel sounds are normal. She exhibits no distension. Musculoskeletal: Normal range of motion. General: No edema. Neurological: She is alert and oriented to person, place, and time. Skin: Skin is warm and dry. Psychiatric: She has a normal mood and affect. Her behavior is normal. Judgment and thought contentnormal. Education provided on the following: -Instructed on lifestyle modifications: Weight management, DASH-low sodium eating plan, regular aerobic physical activity and moderation of alcohol consumption. Target blood pressure <130/80. Monitor BP daily, varying times, document and provide for next RNCM visit. COPD: Pt instructed to: -Call with increased SOB, wheezing, chest tightness, increased cough, increased sputum with change in color or consistency and fever. -Wash hands often -Drink plenty of fluids -Use inhalers as directed, do not stop or skip doses -Avoid stress -Rest when tired or SOB -Avoid triggers -Clean inhalers once a week Be extra vigilant with start of flu/pneumonia season. Educated on home safety: ? Create a [...] exercises that will be right for you. Treatment/Plan: Continue with all ordered medications. Monitor for decreased urinary output, fever, increased pain, hematuria and report. Monitor for COPD flare with start of cold/flu/pneumonia season. Reduce sodium intake. Elevate legs when sitting. RNCM will follow up in 1 month or sooner if needed. Treatment(s) Given: Evaluation Patient's 'Red Flags': 1. Increased abdominal pain 2. Decreased urinary output 3. Fever, n/v 4. Sob, cough , wheezing not relieved with inhaler/nebs Patient Needs to Remember: Call [facility] with any new/worsening health concerns or problems. Advanced Care Plannin wishes completed. Referrals Needed: None at this time. LYN and RD active with patient. Follow Up: Patient encouraged to call the intake phone number for all urgent but not emergent issues. Scheduled to follow up with patient in 1 month Corrina Layne RN 12/18/2019 documented in this encounter Plan of Treatment Upcoming Encounters Date Type Specialty Care Team Description 03/03/2020 Office Visit Internal Medicine Yariel Cardoza MD [address] [place] [address] [place] [address] Health Maintenance Due Date [...] Documents on File Type Date Recorded Patient Toddler Nanny Expl 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"
--- OUTSIDE RECORDS SUMMARY | 2023-06-07 08:13 | External Medical Summary | Summary of Care ---
Author Name Unknown Organization [place] [address] Care Team Providers Care Compressor Station Engineer Name Role Phone Leanne Cardoza MD Primary Care Provide r Reason for Visit * Reason Comments eRx-Medication Refill Encounter Details Date Type Department Care Team Description 01/21/2020 Refill Internal Medicine [address] [place] [id number] Leanne Cardoza MD [address] [place] [address] [place] [address] Allergies Active Allergy Reactions Severity Noted Date Comments Adhesive Tape 06/29/2003 Sensitive to Naproxen Hives 05/28/2015 Ivp Dye Hives 08/20/2000 Latex Other (Please comment) 01/05/2015 Contact rash Ibuprofen Rash 01/05/2015 documented as of this encounter (statuses as of 01/21/2020) Medications Medication Sig Dispensed Refills Start Date [...] Take 0.4 mg by mouth daily. Per [facility] ER 0 06/09/2019 Active ondansetron (ZOFRAN) 4 MG Tablet Take 4 mg by mouth every 6 hours as needed for Nausea. Per [facility] ER 0 06/09/2019 Active Sennosides [...] EVERY DAY 90 Tab 1 01/21/2020 Active hydroCHLOROthiazi de (HYDRODIURIL) 25 MG Tablet TAKE 1 TABLET BY MOUTH EVERY DAY 90 Tab 1 08/03/2019 01/21/20 20 Discontinued documented as of this encounter (statuses as of 01/21/2020) Active Problems Problem Noted Date Moderate episode [...] as of this encounter (statuses as of 01/21/2020) Resolved Problems Problem Noted Date Resolved Date [...] as of this encounter (statuses as of 01/21/2020) Immunizations Name Administration Dates Next Due Pneumococcal [...] Notes * Telephone Encounter - Kassidy Archuleta [facility] - 01/21/2020 3:47 PM EDT Signed Prescriptions: Disp Refills hydroCHLOROthiazide (HYDRODIURIL) 25 MG Ta*90 Tab 1 Sig: TAKE 1 TABLET BY MOUTH EVERY DAYAuthorizing Provider: LEANNE CARDOZA User: KASSIDY ARCHULETA NN documented in this encounter Plan of Treatment Upcoming Encounters Date Type Specialty Care Team Description 01/25/2020 Home Visit [facility] Corrina Layne RN 132 [facility] [place] [address] [phone] 03/03/2020 Office Visit Internal Medicine Leanne Cardoza MD [address] [place] [address] [place] [address] 07/15/2020 Office Visit Dermatology Kirstie Mcclain MD 200 [place] [address] [phone] Health Maintenance Due Date Last Done Comments [...] Documents on File Type Date Recorded Patient Computer Aided Drafter Expl 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
--- OUTSIDE RECORDS SUMMARY | 2023-06-07 08:13 | External Medical Summary | Summary of Care ---
Author Name Unknown Organization [place] [address] Care Team Providers Care Electronic Musical Instrument Repairer Name Role Phone Leanne Cardoza MD Primary Care Provide r Reason for Visit * Reason Comments eRx-Medication Refill Encounter Details Date Type Department Care Team Description 12/25/2019 Refill Internal Medicine [address] [place] [address] Leanne Cardoza MD [address] [place] [address] [place] [address] Dyslipidemia, goal LDL below 100 Allergies Active Allergy Reactions Severity Noted Date Comments Adhesive Tape 06/29/2003 Sensitive to Naproxen Hives 05/28/2015 Ivp Dye Hives 08/20/2000 Latex Other (Please comment) 01/05/2015 Contact rash Ibuprofen Rash 01/05/2015 documented as of this encounter (statuses as of 12/26/2019) Medications Medication Sig Dispensed Refills Start Date [...] EVERY DAY 90 Tab 2 12/26/2019 Active atorvaSTATin (LIPITOR) 20 MG TabletIndications :Dyslipidemia, goal LDL below 100 TAKE 1 TABLET BY MOUTH EVERY DAY 90 Tab 0 05/22/2019 12/26/19 20 Discontinued documented as of this encounter (statuses as of 12/26/2019) Active Problems Problem Noted Date Moderate episode [...] as of this encounter (statuses as of 12/26/2019) Resolved Problems Problem Noted Date Resolved Date [...] as of this encounter (statuses as of 12/26/2019) Immunizations Name Administration Dates Next Due Pneumococcal [...] Notes * Telephone Encounter - Rosio Valdez [facility] - 12/26/2019 9:24 AM EDT Signed Prescriptions: Disp Refills atorvaSTATin (LIPITOR) 20 MG Tablet 90 Tab 2 Sig: TAKE 1 TABLET BY MOUTH EVERY DAYAuthorizing Provider: LEANNE CARDOZA User: ROSIO VALDEZ- documented in this encounter Plan of Treatment Upcoming Encounters Date Type Specialty Care Team Description 03/03/2020 Office Visit Internal Medicine Leanne Cardoza MD [address] [place] [address] [place] [address] Health Maintenance Due Date [...] as of this encounter Visit Diagnoses Diagnosis Dyslipidemia, goal LDL below 100 Other and unspecified hyperlipidemia documented in this encounter Advance Directives Documents on File Type Date Recorded Patient Family Nurse Expl 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
--- OUTSIDE RECORDS SUMMARY | 2023-06-07 08:13 | External Medical Summary | Summary of Care ---
Author Name Unknown Organization [place] [address] Care Team Providers Care Technical Architect Name Role Phone Yariel Cardoza MD Primary Care Provide r Encounter Details Date Type Department Care Team Description 12/16/2019 Scan Encounter Unspecified Department <No scans attached> Allergies Active Allergy Reactions Severity Noted Date Comments Adhesive Tape 06/29/2003 Sensitive to Naproxen Hives 05/28/2015 Ivp Dye Hives 08/20/2000 Latex Other (Please comment) 01/05/2015 Contact rash Ibuprofen Rash 01/05/2015 documented as of this encounter (statuses as of 12/17/2019) Medications Medication Sig Dispensed Refills Start Date [...] as of this encounter (statuses as of 12/17/2019) Active Problems Problem Noted Date Moderate episode [...] as of this encounter (statuses as of 12/17/2019) Resolved Problems Problem Noted Date Resolved Date [...] as of this encounter (statuses as of 12/17/2019) Immunizations Name Administration Dates Next Due Pneumococcal [...] Travel End documented as of this encounter Plan of Treatment Upcoming Encounters Date Type Specialty Care Team Description 12/18/2019 [facility] Visit [facility] Corrina Layne RN [address] [facility] [place] [id number] 03/03/2020 Office Visit Internal Medicine Yariel Cardoza MD [address] [place] [address] [place] [address] [phone] Health Maintenance Due Date Last Done Comments [...] Documents on File Type Date Recorded Patient Installer Expl 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
--- OUTSIDE RECORDS SUMMARY | 2023-06-07 08:13 | External Medical Summary | Summary of Care ---
Author Name Unknown Organization [place] [address] Care Team Providers Care Regulatory Affairs Coordinator Name Role Phone Yariel Cardoza MD Primary Care Provide r Encounter Details Date Type Department Care Team Description 12/15/2019 Orders Only Internal Medicine [address] [address] Yariel Cardoza MD [address] [place] [address] [place] [address] Allergies Active Allergy Reactions Severity Noted Date Comments Adhesive Tape 06/29/2003 Sensitive to Naproxen Hives 05/28/2015 Ivp Dye Hives 08/20/2000 Latex Other (Please comment) 01/05/2015 Contact rash Ibuprofen Rash 01/05/2015 documented as of this encounter (statuses as of 12/15/2019) Medications Medication Sig Dispensed Refills Start Date [...] Take 0.4 mg by mouth daily. Per [facility] ER 0 06/09/2019 Active ondansetron (ZOFRAN) 4 MG Tablet Take 4 mg by mouth every 6 hours as needed for Nausea. Per [facility] ER 0 06/09/2019 Active Sennosides [...] as of this encounter (statuses as of 12/15/2019) Active Problems Problem Noted Date Moderate episode [...] as of this encounter (statuses as of 12/15/2019) Resolved Problems Problem Noted Date Resolved Date [...] as of this encounter (statuses as of 12/15/2019) Immunizations Name Administration Dates Next Due Pneumococcal [...] Home Corrina Layne RN 132 [facility] [place] [id number] 03/03/2020 Office Visit Internal Medicine Yariel Cardoza MD [address] [place] [address] [place] [address] [phone] Health Maintenance Due Date Last Done Comments [...] Associated Diagnosis Comments MAMMOGRAM SCREENING BILATERAL Routine 12/14/2019 documented in this encounter Results * MAMMOGRAM SCREENING BILATERAL (12/14/2019) Specimen Narrative Performed At Performing Organization Address City/State/Zipcod e Phone Number OUTSIDE LAB (SEE SCANNED REPORT) documented in this encounter Advance Directives Documents on File Type Date Recorded 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
--- OUTSIDE RECORDS SUMMARY | 2023-06-07 08:13 | External Medical Summary | Summary of Care ---
Author Name Unknown Organization [place] [address] Care Team Providers Care Neighborhood Service Center Director Name Role Phone Yariel Cardoza MD Primary Care Provide r Reason for Referral * Evaluate & Treat - Unlimited Visits (Within 30 days (routine)) Status Reason Specialty Diagnoses / Procedures Referred By Contact Referred To Contact Authorized Specialty Services Required Dermatology Diagnoses Skin lesion Yariel Cardoza MD [address] [place] [address] [place] [address] Kirstie Mcclain MD [address] [place] [id number] Reason for Visit * Reason Comments Referral Dermatology/Kleipsis Encounter Details Date Type Department Care Team Description 01/01/2020 Telephone Internal Medicine [address] [address] Yariel Cardoza MD [address] [place] [address] [place] [address] Referral (Dermatology/Kleipsis ) Allergies Active Allergy Reactions Severity Noted Date Comments Adhesive Tape 06/29/2003 Sensitive to Naproxen Hives 05/28/2015 Ivp Dye Hives 08/20/2000 Latex Other (Please comment) 01/05/2015 Contact rash Ibuprofen Rash 01/05/2015 documented as of this encounter (statuses as of 01/04/2020) Medications Medication Sig Dispensed Refills Start Date [...] Take 0.4 mg by mouth daily. Per [facility] ER 0 06/09/2019 Active ondansetron (ZOFRAN) 4 MG Tablet Take 4 mg by mouth every 6 hours as needed for Nausea. Per [facility] ER 0 06/09/2019 Active Sennosides [...] as of this encounter (statuses as of 01/04/2020) Active Problems Problem Noted Date Moderate episode [...] as of this encounter (statuses as of 01/04/2020) Resolved Problems Problem Noted Date Resolved Date [...] as of this encounter (statuses as of 01/04/2020) Immunizations Name Administration Dates Next Due Pneumococcal [...] Telephone Encounter - Zulema Land OSA - 01/04/2020 8:57 AM EDT Scheduled, pt aware. * Telephone Encounter - Yariel Cardoza MD - 01/01/2020 4:29 PM EDT Signed but may not be scheduling for a while out now * Telephone Encounter - Magda De La Paz OSA - 01/01/2020 2:51 PM EDT Patient Name: Jayla Hayes Patient Primary care provider: Yariel Cardoza MD Name of specialist: Kirstie Mcclain Type of specialist: Dermatology Location of specialist: [facility] Reason for visit: Questionable skin tags Date of visit: not scheduled yet. documented in this encounter Plan of Treatment Upcoming Encounters Date Type Specialty Care Team Description 01/25/2020 [facility] Visit [facility] Corrina Layne, SELENE 132 [place] [address] [phone] 03/03/2020 Office Visit Internal Medicine Yariel Cardoza MD [address] [place] [address] [place] [address] [phone] 07/15/2020 Office Visit Dermatology Kirstie Mcclain MD [address] [place] [address] [place] [address] [phone] Scheduled Referrals Name Type Priority Associated Diagnoses Orde r Schedule DERMATOLOGY REFERRAL OP Referral Within 30 days (routine) Skin lesion Ordered: 01/01/2020 Health Maintenance Due Date Last Done Comments [...] of this encounter Visit Diagnoses Diagnosis Skin lesion- Primary Unspecified disorder of skin and subcutaneous tissue documented in this encounter Advance Directives Documents on File Type Date Recorded Patient Client Consultant Expl 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
--- OUTSIDE RECORDS SUMMARY | 2023-06-07 08:14 | External Medical Summary | Summary of Care ---
Author Name Unknown Organization [place] [address] Care Team Providers Care Administrative Office Clerk Name Role Phone Yariel Cardoza MD Primary Care Provide r Reason for Visit * Reason Comments [facility]: Maintenance Encounter Details Date Type Department Care Team Description 10/22/2019 Scheduled Telephone [facility] 132 [facility] [place] [address] [facility] Auditing Control Clerk 132 [facility] [place] [address] [phone] Allergies Active Allergy Reactions Severity Noted Date Comments Adhesive Tape 06/29/2003 Sensitive to Naproxen Hives 05/28/2015 Ivp Dye Hives 08/20/2000 Latex Other (Please comment) 01/05/2015 Contact rash Ibuprofen Rash 01/05/2015 documented as of this encounter (statuses as of 10/22/2019) Medications Medication Sig Dispensed Refills Start Date [...] at bedtime. 30 Tab 5 07/10/2019 Active sertraline (ZOLOFT) 25 MG Tablet Take 1 Tab by mouth daily. 30 Tab 5 07/10/2019 Active HYDROcodone-acetami nophen [...] OR WHEEZING. 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 documented in this encounter Plan of Treatment Upcoming Encounters Date Type Specialty Care Team Description 11/13/2019 [facility] Visit [facility] Corrina Layne RN 132 [facility] [place] [address] [phone] 11/18/2019 Office Visit Internal Medicine Bettye Valenzuela PA-C [address] [place] [address] [place] [address] [phone] 03/03/2020 Office Visit Internal Medicine Yariel Cardoza MD [address] [place] [address] [place] [address] Health Maintenance Due Date [...] 01/2019, 07/10/2019, 07/28/2018, Additional history exists MENINGOCOCCAL (MENACTRA) Aged Out No longer eligible based on patient's age to complete this topic documented as of this encounter Implants Not on filedocumented as of this encounter Advance Directives Documents on File Type Date Recorded 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
--- OUTSIDE RECORDS SUMMARY | 2023-06-07 08:14 | External Medical Summary | Summary of Care ---
Author Name Unknown Organization [place] [address] Care Team Providers Care Professor Of Geology Name Role Phone Leanne Cardoza MD Primary Care Provide r Reason for Visit * Reason Comments eRx-Medication Refill Encounter Details Date Type Department Care Team Description 11/16/2019 Refill [facility] [address] [place] [address] Leanne Cardoza MD [address] [place] [address] [place] [id number] Allergies Active Allergy Reactions Severity Noted Date Comments Adhesive Tape 06/29/2003 Sensitive to Naproxen Hives 05/28/2015 Ivp Dye Hives 08/20/2000 Latex Other (Please comment) 01/05/2015 Contact rash Ibuprofen Rash 01/05/2015 documented as of this encounter (statuses as of 11/17/2019) Medications Medication Sig Dispensed Refills Start Date [...] 0 06/20/2017 Active furosemide (LASIX) 20 MG TabletIndications: Bilateral [...] 3 05/19/2019 Active atorvaSTATin (LIPITOR) 20 MG TabletIndications: Dyslipidemia, [...] 0.4 mg by mouth daily. Per [facility] ER 0 06/09/2019 Active ondansetron (ZOFRAN) 4 MG Tablet Take 4 mg by mouth every 6 hours as needed for Nausea. Per [facility] ER 0 06/09/2019 Active Sennosides (SENNA) 8.6 MG CAPS Take 1 Cap by mouth as needed for Constipation (1 cap up to two times daily for constipation). 0 06/12/2019 Active amitriptyline (ELAVIL) 25 MG TabletIndications: Irritable bowel syndrome with both constipation and diarrhea,Moderate episode of recurrent major depressive disorder (HCC) Take 1 Tab by mouth at bedtime. 30 Tab 5 07/10/2019 Active HYDROcodone-acetam inophen 5-325 mg per tab 5-325 MG per tablet 0 07/14/2019 Active Urea 20 % CREA Apply topically to affected area. Apply to feet 0 Active hydroCHLOROthiazid e (HYDRODIURIL) 25 MG Tablet TAKE 1 TABLET BY MOUTH EVERY DAY 90 Tab 1 08/03/2019 Active omeprazole (PRILOSEC) 20 MG CPDRIndications:[place] stroesophageal [...] mouth daily. 30 Tab 5 11/17/2019 Active sertraline (ZOLOFT) 25 MG Tablet Take 1 Tab by mouth daily. 30 Tab 5 07/10/2019 0 Discontinue d(Refill) documented as of this encounter (statuses as of 11/17/2019) Active Problems Problem Noted Date Moderate episode [...] as of this encounter (statuses as of 11/17/2019) Resolved Problems Problem Noted Date Resolved Date [...] as of this encounter (statuses as of 11/17/2019) Immunizations Name Administration Dates Next Due Pneumococcal [...] Telephone Encounter - Leanne Cardoza MD - 11/17/2019 9:22 AM EST Signed Prescriptions: Disp Refills sertraline (ZOLOFT) 25 MG Tablet 30 Tab 5 Sig: Take 1 Tab by mouth daily. Authorizing Provider: LEANNE CARDOZA Refused Prescriptions: Disp Refills sertraline (ZOLOFT) 50 MG Tablet [Pharmacy*30 Tab 5 Sig: TAKE 1 TABLET BY MOUTH EVERY DAY Refused By: JAG KEY Reason for Refusal: Other (comment below) Reason for Refusal Comment: dose adjustment 07/10/19 * Telephone Encounter - Jag Arana [facility] - 11/17/2019 7:38 AM EST Pending Prescriptions: Disp Refills sertraline (ZOLOFT) 25 MG Tablet 30 Tab 5 Sig: Take 1 Tab by mouth daily. Refused Prescriptions: Disp Refills sertraline (ZOLOFT) 50 MG Tablet [Pharmacy*30 Tab 5 Sig: TAKE 1 TABLET BY MOUTH EVERY DAY Refused By: JAG KEY Reason for Refusal: Other (comment below) Reason for Refusal Comment: dos e adjustment 07/10/19 * Telephone Encounter - Jag Arana [facility] - 11/17/2019 7:37 AM EST Pharmacists cannot authorize refills for meds listed as "historical" in chart. Please approve if appropriate. Dose adjusted 07/10/19. Thank You, Jag Key [facility] Staff Pharmacist Pharmacy Refill Call Center 11/17/2019, 7:37 AM * Telephone Encounter - Jag Arana [facility] - 11/17/2019 7:36 AM EST Pending Prescriptions: Disp Refills sertraline (ZOLOFT) 50 MG Tablet [Pharmac*30 Tab 5 Sig: TAKE 1 TABLET BY MOUTH EVERY DAY Last Office Visit: No Previous Office Visits Next Office Visit: 12/18/2019 Scheduled Provider(s): Corrina Layne RN If no future appointments scheduled, and last appointment is greater than a year ago, please schedule patient for a follow-up appointment Last date the medication was ordered: 05/15/19 Pharmacy: [id number] [id number] [facility] Is this request for a controlled substance?No Urine Drug Screen:No results found for this or any previous visit. Patient Phone Numbers Labs: Lab Results Component Value Date/Time CREAT 0.8 08/18/2019 11:10 AM POTASSIUM 3.7 08/18/2019 11:10 AM TSH 0.69 04/17/2017 10:53 AM LDLCALC 51 07/28/2018 02:30 PM ALT 22 07/28/2018 02:30 PM HGBA1C 5.7 03/19/2017 08:05 AM documented in this encounter Plan of Treatment Upcoming Encounters Date Type Specialty Care Team Description 12/18/2019 [facility] Visit [facility] Corrina Layne RN 132 [facility] [place] [address] [phone] 03/03/2020 Office Visit Internal Medicine Leanne Cardoza MD [address] [place] [address] [place] [id number] Health Maintenance Due Date Last Done Comments [...] on File Type Date Recorded Patient Senior Policy Advisor Expl 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
--- OUTSIDE RECORDS SUMMARY | 2023-06-07 08:14 | External Medical Summary | Summary of Care ---
Author Name Unknown Organization [place] [address] Care Team Providers Care Ballet Teacher Name Role Phone Yariel Cardoza MD Primary Care Provide r Reason for Visit * Reason Comments [facility]: Maintenance Encounter Details Date Type Department Care Team Description 10/21/2019 Scheduled Telephone [facility] 132 [facility] [place] [address] [facility] Water Tanker Driver [address] [facility] [place] [address] [phone] Allergies Active Allergy Reactions Severity Noted Date Comments Adhesive Tape 06/29/2003 Sensitive to Naproxen Hives 05/28/2015 Ivp Dye Hives 08/20/2000 Latex Other (Please comment) 01/05/2015 Contact rash Ibuprofen Rash 01/05/2015 documented as of this encounter (statuses as of 10/21/2019) Medications Medication Sig Dispensed Refills Start Date [...] abdominal pain 120 Cap 5 03/06/2019 Active albuterol-ipratropi um (DUONEB) 2.5-0.5 MG/3ML nebulizer solutionIndications :COPD, severe (HCC) INHALE 3 MLS VIA NEBULIZER EVERY 4 HOURS NEEDED FOR COUGH, SHORTNESS OF BREATH OR WHEEZING. 360 mL 1 04/13/2019 Active fluticasone (FLONASE) 50 MCG/ACT nasal spray [...] EVERY DAY 90 Tab 3 09/02/2019 Active documented as of this encounter (statuses as of 10/21/2019) Active Problems Problem Noted Date Moderate episode [...] as of this encounter (statuses as of 10/21/2019) Resolved Problems Problem Noted Date Resolved Date [...] as of this encounter (statuses as of 10/21/2019) Immunizations Name Administration Dates Next Due Pneumococcal [...] Telephone Encounter - Crystal Crowley [facility] Water Tanker Driver - 10/21/2019 10:48 AM EST Called [facility] billing for update on pt application. Pt and spouse were sent a letter in September outlining what they needed to continue to process application. Pt updated on all of above. Pt will gather requested information and notify LYN and an appt will be made at that time. Reinforced plan of care. Patient verbalized understanding. Explained/reinforced role of Community Health Water Tanker Driver. Encouraged to call with any issues or concerns. Gave [phone] number and contact information. documented in this encounter Plan of Treatment Upcoming Encounters Date Type Specialty Care Team Description 11/13/2019 Home Visit [facility] Corrina Layne RN [address] [place] [address] [phone] 11/18/2019 Office Visit Internal Medicine Bettye Valenzuela PA-C [address] [place] [address] [place] [address] [phone] 03/03/2020 Office Visit Internal Medicine Yariel Cardoza MD [address] [place] [address] [place] [address] [phone] Health Maintenance Due Date Last Done Comments [...] Documents on File Type Date Recorded 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
--- OUTSIDE RECORDS SUMMARY | 2023-06-07 08:14 | External Medical Summary | Summary of Care ---
Author Name Unknown Organization [place] [address] Care Team Providers Care Respiratory Therapist Assistant Name Role Phone Yariel Cardoza MD Primary Care Provide r Reason for Visit * Reason Comments Advice Encounter Details Date Type Department Care Team Description 11/27/2019 Telephone Internal Medicine [address] [address] Yariel Cardoza MD [address] [place] [address] [place] [address] Advice Allergies Active Allergy Reactions Severity Noted Date Comments Adhesive Tape 06/29/2003 Sensitive to Naproxen Hives 05/28/2015 Ivp Dye Hives 08/20/2000 Latex Other (Please comment) 01/05/2015 Contact rash Ibuprofen Rash 01/05/2015 documented as of this encounter (statuses as of 11/27/2019) Medications Medication Sig Dispensed Refills Start Date [...] as of this encounter (statuses as of 11/27/2019) Active Problems Problem Noted Date Moderate episode [...] as of this encounter (statuses as of 11/27/2019) Resolved Problems Problem Noted Date Resolved Date [...] as of this encounter (statuses as of 11/27/2019) Immunizations Name Administration Dates Next Due Pneumococcal [...] Encounter - Maria Antonia Whiteside LPN - 11/27/2019 8:39 AM EST Message given to pt * Telephone Encounter - Yariel Cardoza MD - 11/27/2019 8:35 AM EST Lipozene has not been studied by the FDA so I have no way of knowing if it is safe or effective. I cannot recommend it. * Telephone Encounter - Holden Neal OSA - 11/27/2019 8:14 AM EST Pt called in asking for Dr. Cardoza's advice. She would like to know if it would be ok for her to take Lipozene the weight control pill. 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
--- OUTSIDE RECORDS SUMMARY | 2023-06-07 08:14 | External Medical Summary | Summary of Care ---
Author Name Unknown Organization [place] [address] Care Team Providers Care Merchandising Coordinator Name Role Phone Yariel Cardoza MD Primary Care Provide r Reason for Visit * Reason Comments [facility]: Maintenance Encounter Details Date Type Department Care Team Description 11/13/2019 Home Visit [facility] 132 [facility] [place] [address] Corrina Layne RN 132 [facility] [place] [address] [phone] Allergies Active Allergy Reactions Severity Noted Date Comments Adhesive Tape 06/29/2003 Sensitive to Naproxen Hives 05/28/2015 Ivp Dye Hives 08/20/2000 Latex Other (Please comment) 01/05/2015 Contact rash Ibuprofen Rash 01/05/2015 documented as of this encounter (statuses as of 11/13/2019) Medications Medication Sig Dispensed Refills Start Date [...] 0.4 mg by mouth daily. Per [facility] 0 06/09/2019 Active ondansetron (ZOFRAN) 4 MG Tablet Take 4 mg by mouth every 6 hours as needed for Nausea. Per [facility] ER 0 06/09/2019 Active Sennosides (SENNA) [...] as of this encounter (statuses as of 11/13/2019) Active Problems Problem Noted Date Moderate episode [...] as of this encounter (statuses as of 11/13/2019) Resolved Problems Problem Noted Date Resolved Date [...] as of this encounter (statuses as of 11/13/2019) Immunizations Name Administration Dates Next Due Pneumococcal [...] Sign Reading Time Taken Comments Blood Pressure 138/80 11/13/2019 12:09 PM EST Pulse 80 11/13/2019 12:09 PM EST Temperature 36.8 C (98.2 F) 11/13/2019 12:[address] Respiratory Rate 16 11/13/2019 12:09 PM EST Oxygen Saturation 94% 11/13/2019 12:09 PM EST RA Inhaled Oxygen Concentration - - Weight - - Height - - Body Mass Index - - documented in this encounter Progress Notes * Corrina Layne RN - 11/13/2019 9:00 AM EST [facility] Bench Repair Technician Visit Date: 11/13/2019 9:00 am Name: Jayla Hayes : 1945 Current Concerns: Pt seen for follow up related to COPD, HTN, IBS Has all COPD medications. No increase in respiratory sx's at this time. Had flu vaccine this year. IBS-symptoms stable other than intermittent gas, bloating, but states that her dicyclomine is effective for abdominal cramping. No further symptoms related to kidney stones. Has had more edema lately, although, none today. Eating ham and potato chips. Re-instructed on low sodium diet. Pt agrees she will comply. Instructed to notify [facility] if swelling continues or is associated with elevated blood pressure, sob. Problems/Symptoms: Review of Systems Constitutional: Negative for [...] Hematological: Negative. Psychiatric/Behavioral: Negative. Physical Exam: BP 138/80 | Pulse 80 | Temp (Src) 98.2 (Tympanic) | Resp 16 | SaO2 94[RA[% Pain 0 Physical Exam Constitutional: She is [...] COPD flare with start of cold/flu/pneumonia season. RNCM will follow up in 1 month or sooner if needed. Treatment(s) Given: Evaluation Patient's 'Red Flags': 1. Increased abdominal pain 2. Decreased urinary output 3. Fever, n/v 4. Sob, cough , wheezing not relieved with inhaler/nebs Patient Needs to Remember: Call [facility] with any new/worsening health concerns or problems. Advanced Care Plannin wishes completed. Referrals Needed: None at this time. LYN and RD active with patient. Follow Up: Patient encouraged to call the intake phone number for all urgent but not emergent issues. Scheduled to follow up with patient in 1 month Corrina Layne RN 11/13/2019 documented in this encounter Plan of Treatment Upcoming Encounters Date Type Specialty Care Team Description 11/18/2019 Office Visit Internal Medicine Bettye Valenzuela PA-C [address] [place] [address] [place] [address] [phone] 12/18/2019 [facility] Visit [facility] Corrina Layne RN [address] [place] [address] [place] [address] [phone] 03/03/2020 Office Visit Internal Medicine Yariel Cardoza MD [address] [place] [address] [place] [address] [phone] Health Maintenance Due Date Last Done Comments [...] Documents on File Type Date Recorded Patient Certified Drug Counselor Expl 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"
--- OUTSIDE RECORDS SUMMARY | 2023-06-07 08:14 | External Medical Summary | Summary of Care ---
Author Name Unknown Organization [place] [address] Care Team Providers Care Leaf Sticker Name Role Phone Yariel Cardoza MD Primary Care Provide r Reason for Visit * Reason Comments [facility]: Maintenance Encounter Details Date Type Department Care Team Description 10/21/2019 Scheduled Telephone [facility] 132 [facility] [place] [address] [facility] Spray Painter 132 [facility] [place] [address] [phone] Allergies Active Allergy Reactions Severity Noted Date [...] encounter Miscellaneous Notes * Telephone Encounter - Glenna Briones OSA - 10/21/2019 11:37 AM EST Inbound call from patient stating she cannot find the papers requested by Crystal Crowley [facility], and is requesting [facility] phone number. Noted that LYN was working in the field today, and her phone number cannot be given out, but she can return the call to patient and follow-up. Patient agreeable. Skype to LYN to make aware. * Telephone Encounter - Crystal Crowley [facility] Spray Painter - 10/21/2019 10:48 AM EST Called P billing for update on pt application. Pt and spouse were sent a letter in September outlining what they needed to continue to process application. Pt updated on all of above. Pt will gather requested information and notify LYN and an appt will bemade at that time. Reinforced plan of care. Patient verbalized understanding. Explained/reinforced role of Community [facility] Spray Painter. Encouraged to call with any issues or concerns. Gave 833 number and contact information. documented in this encounter Plan of Treatment Upcoming Encounters Date Type Specialty Care Team Description 11/13/2019 Home Visit [facility] Corrina Layne RN 132 [facility] [place] [address] [phone] 11/18/2019 Office Visit Internal Medicine Bettye Valenzuela PA-C [address] [place] [address] [place] [address] [phone] 03/03/2020 Office Visit Internal Medicine Yariel Cardoza MD [address] [place] [address] [place] [address] [phone] Health Maintenance Due Date Last Done Comments [...] Documents on File Type Date Recorded Patient Control Panel Assembler Expl 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
--- OUTSIDE RECORDS SUMMARY | 2023-06-07 08:15 | External Medical Summary | Summary of Care ---
Author Name Unknown Organization [place] [address] Care Team Providers Care Speeder Hand Name Role Phone Yariel Cardoza MD Primary Care Provide r Reason for Visit * Reason Comments [facility]: Engagement nurse tele phone follow up Encounter Details Date Type Department Care Team Description 08/21/2019 Scheduled Telephone [facility] 132 [facility] [place] [address] Chantell Mcodnnell, RN 132 [facility] [place] [address] [phone] Allergies Active Allergy Reactions Severity Noted Date Comments Adhesive Tape 06/29/2003 Sensitive to Naproxen Hives 05/28/2015 Ivp Dye Hives 08/20/2000 Latex Other (Please comment) 01/05/2015 Contact rash Ibuprofen Rash 01/05/2015 documented as of this encounter (statuses as of 10/13/2019) Medications Medication Sig Dispensed Refills Start Date [...] abdominal pain 120 Cap 5 03/06/2019 Active albuterol-ipratrop ium (DUONEB) 2.5-0.5 MG/3ML nebulizer [...] mg by mouth daily. Per [facility] ER 0 06/09/2019 Active ondansetron (ZOFRAN) 4 MG Tablet Take 4 mg by mouth every 6 hours as needed for Nausea. Per [facility] ER 0 06/09/2019 Active Sennosides [...] mouth daily. 30 Tab 5 07/10/2019 Active HYDROcodone-acetam inophen 5-325 mg per tab 5-325 MG per tablet 0 07/14/2019 Active Urea 20 % CREA Apply topically to affected area. Apply to feet 0 Active hydroCHLOROthiazid e (HYDRODIURIL) 25 MG Tablet TAKE 1 TABLET BY MOUTH EVERY DAY 90 Tab 1 08/03/2019 Active omeprazole (PRILOSEC) 20 MG CPDRIndications:Ga stroesophageal reflux disease without esophagitis Take 1 Cap by mouth 2 times a day 30 minutes before morning and evening meals. 60 Cap 5 07/17/2018 9 Discontinue d(Refill) KLOR-CON 10 10 MEQ TBCR TAKE 1 TABLET BY MOUTH EVERY DAY 90 Tab 1 02/23/2019 9 Discontinue d(Refill) ciprofloxacin (CIPRO) 500 MG Tablet Take 500 mg by mouth 2 times a day. 0 9 Discontinue d(End of Procedure) documented as of this encounter (statuses as of 10/13/2019) Active Problems Problem Noted Date Moderate episode [...] as of this encounter (statuses as of 10/13/2019) Resolved Problems Problem Noted Date Resolved Date [...] as of this encounter (statuses as of 10/13/2019) Immunizations Name Administration Dates Next Due Pneumococcal [...] Miscellaneous Notes * Telephone Encounter - Chantell Mcdonnell RN - 08/21/2019 2:26 PM EST Called pt today to see how she is feeling after GI complaints and ER visit. Pt reports she was diagnosed with Salmonella. She reports the [facility] has already called her. She is now on Cipro 500 mg BID. She reports she is able to eat. She denies nausea, vomiting,abdominal pain and diarrhea. She reports she has not had a BM in 2 days so she did restart her Miralax this AM. She is aware to call [facility] with any changes to her health. She verbalized an understanding and will comply. documented in this encounter Plan of Treatment Upcoming Encounters Date Type Specialty Care Team Description 11/13/2019 [facility] Visit [facility] Corrina Layne, RN 132 [facility] [place] [address] [phone] 11/18/2019 Office Visit Internal Medicine Bettye Valenzuela PA-C [address] [place] [address] [place] [address] [phone] 03/03/2020 Office Visit Internal Medicine Yariel Cardoza MD [address] [place] [address] [place] [address] [phone] Health Maintenance Due Date Last Done Comments [...] on File Type Date Recorded Patient Head Waiter Expl 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
--- OUTSIDE RECORDS SUMMARY | 2023-06-07 08:15 | External Medical Summary | Summary of Care ---
Author Name Unknown Organization [place] [address] Care Team Providers Care Forest Engineer Name Role Phone Yariel Cardoza MD Primary Care Provide r Reason for Visit * Reason Comments Medical Nutrition Therapy Encounter Details Date Type Department Care Team Description 09/24/2019 Nutrition Services [facility] 132 [facility] [address] Haley Davidson RDN 132 [place] [address] [phone] COPD, severe ([facility])* Allergies Active Allergy Reactions Severity Noted Date Comments Adhesive Tape 06/29/2003 Sensitive to Naproxen Hives 05/28/2015 Ivp Dye Hives 08/20/2000 Latex Other (Please comment) 01/05/2015 Contact rash Ibuprofen Rash 01/05/2015 documented as of this encounter (statuses as of 09/24/2019) Medications Medication Sig Dispensed Refills Start Date [...] mg by mouth daily. Per [facility] ER 0 06/09/2019 Active ondansetron (ZOFRAN) 4 MG Tablet Take 4 mg by mouth every 6 hours as needed for Nausea. Per [facility] ER 0 06/09/2019 Active Sennosides (SENNA) [...] as of this encounter (statuses as of 09/24/2019) Active Problems Problem Noted Date Moderate episode [...] as of this encounter (statuses as of 09/24/2019) Resolved Problems Problem Noted Date Resolved Date [...] as of this encounter (statuses as of 09/24/2019) Immunizations Name Administration Dates Next Due Pneumococcal [...] Travel End documented as of this encounter Progress Notes * Haley Davidson RDN - 09/24/2019 2:24 PM EST Call placed to pt as follow-up from nutrition visit on 08/14/2019. Pt reports no diarrhea at this time. Noted pt was treated for salmonella, Pt denies any issues r/t diet information previously discussed. Pt reports wt has been stable since diarrhea has resolved. Encouraged pt to contact [facility] at [phone] for any non-emergent changes/concerns. Haley Davidson MS, ELIANAN, LDN Clinical Dietitian [facility] Text/ documented in this encounter Plan of Treatment Upcoming Encounters Date Type Specialty Care Team Description 10/12/2019 Home Visit [facility] Corrina Layne, RN [address] [place] [address] [phone] 11/18/2019 Office Visit Internal Medicine Bettye Valenzuela PA-C [address] [place] [address] [place] [address] [phone] 03/03/2020 Office Visit Internal Medicine Yariel Cardoza MD [address] [place] [address] [place] [address] [phone] Health Maintenance Due Date Last Done Comments [...] Documents on File Type Date Recorded Patient Rock Wool Applicator Expl 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
--- OUTSIDE RECORDS SUMMARY | 2023-06-07 08:15 | External Medical Summary | Summary of Care ---
Author Name Unknown Organization [place] [address] Care Team Providers Care Electrical Sign Servicer Name Role Phone Yariel Cardoza MD Primary Care Provide r Reason for Visit * Reason Comments [facility]: Engagement nurse tele phone follow up Encounter Details Date Type Department Care Team Description 08/21/2019 Scheduled Telephone [facility] 132 [facility] [place] [address] Chantell Mcdonnell, RN 132 [facility] [place] [address] [phone] Allergies Active Allergy Reactions Severity Noted Date [...] Telephone Encounter - Chantell Mcdonnell RN - 10/13/2019 3:14 PM EST [facility] episode of care should not have been resolved. Pt is active with [facility]. * Telephone Encounter - Chantell Mcdonnell RN - 08/21/2019 2:26 PM EST Called pt today to see how she is feeling after GI complaints and ER visit. Pt reports she was diagnosed with Salmonella. She reports the [facility] has already called her. She is now on Cipro 500 mg BID. She reports she is able to eat. She denies nausea, vomiting,abdominal pain and diarrhea. She reports she has not had a BM in 2 days so she did restart her Miralax this AM. She is aware to call [facility] with any changes to her health. She verbalized an understanding and will comply. documented in this encounter Plan of Treatment Upcoming Encounters Date Type Specialty Care Team Description 11/13/2019 Home Visit [facility] Corrina Layne RN 132 [facility] [place] [address] [phone] 11/18/2019 Office Visit Internal Medicine Bettye Valenzuela PA-C [address] [place] [address] [place] [address] [phone] 03/03/2020 Office Visit Internal Medicine Yariel Cardoza MD [address] [place] [address] [place] [address] [phone] Health Maintenance Due Date Last Done Comments [...] Documents on File Type Date Recorded Patient Structural Engineering Drafting Officer Expl 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
--- OUTSIDE RECORDS SUMMARY | 2023-06-07 08:15 | External Medical Summary | Summary of Care ---
Author Name Unknown Organization [place] [address] Care Team Providers Care Restaurant And Bar Manager Name Role Phone Leanne Cardoza MD Primary Care Provide r Reason for Visit * Reason Comments Emergency Department Follow-Up Encounter Details Date Type Department Care Team Description 09/14/2019 Telephone Internal Medicine [address] [place] [address] Leanne Cardoza MD [address] [place] [address] [place] [address] Emergency Department Follow-Up Allergies Active Allergy Reactions Severity Noted Date Comments Adhesive Tape 06/29/2003 Sensitive to Naproxen Hives 05/28/2015 Ivp Dye Hives 08/20/2000 Latex Other (Please comment) 01/05/2015 Contact rash Ibuprofen Rash 01/05/2015 documented as of this encounter (statuses as of 09/14/2019) Medications Medication Sig Dispensed Refills Start Date [...] 0.4 mg by mouth daily. Per [facility] ER 0 06/09/2019 Active ondansetron (ZOFRAN) 4 MG Tablet Take 4 mg by mouth every 6 hours as needed for Nausea. Per [facility] ER 0 06/09/2019 Active Sennosides [...] as of this encounter (statuses as of 09/14/2019) Active Problems Problem Noted Date Moderate episode [...] as of this encounter (statuses as of 09/14/2019) Resolved Problems Problem Noted Date Resolved Date [...] as of this encounter (statuses as of 09/14/2019) Immunizations Name Administration Dates Next Due Pneumococcal [...] Encounter - Maria Antonia Whiteside LPN - 09/14/2019 11:34 AM EST Message given to pt * Addendum Note - Leanne Cardoza MD - 09/14/2019 11:22 AM EST Addended by: LEANNE CARDOZA on: 09/14/2019 11:22 AM Modules accepted: Orders * Telephone Encounter - Leanne Cardoza MD - 09/14/2019 11:22 AM EST Does not need ED follow-up for this if she is fine. Per [facility] message, I ordered a celiac panel for her. * Telephone Encounter - Mendy Blake LPN - 09/14/2019 10:32 AM EST Emergency Department Follow Up: When was patient seen: 09.13.19 [facility] ED: [facility] What were they seen for: TOOK HUSBANDS MEDICATION ACCIDENTALLY What testing did they have done: cxr, ekg and lab work What did ED think was wrong (dx): N/A Any new medications prescribed: No How is patient feeling today: Good, no concerns Patient concerns today: No * Telephone Encounter - Sharon Malone OSA - 09/14/2019 10:29 AM EST Reason for patient's call: ER follow up - [facility] 09/13/19 - patient accidentally took husbands medication rather than her own. Patient states that she would like an appointment with Dr. Cardoza or Bettye Valenzuela PA-C on 09/17/19. Caller was transferred to [facility] at the nurse line. documented in this encounter Plan of Treatment Upcoming Encounters Date Type Specialty Care Team Description 09/24/2019 Nutrition Services [facility] Haley Davidson RDN [address] [place] [address] [phone] 10/12/2019 Installment Loan Collector [facility] Corrina Layne RN [address] [place] [address] [phone] 11/18/2019 Office Visit Internal Medicine Bettye Valenzuela PA-C [address] [place] [address] [place] [address] [phone] 03/03/2020 Office Visit Internal Medicine Leanne Cardoza MD [address] [place] [address] [place] [address] [phone] Scheduled Orders Name Type Priority Associated Diagnoses Orde r Schedule GLIADIN AB PANEL Lab Routine Diarrhea, unspecified type Expected: 09/14/2019 (Approximate), Expires: 09/13/2020 Health Maintenance Due Date Last Done Comments *ADVANCE DIRECTIVE NOT ON FILE 12/23/2015 COLONOSCOPY-EVERY [...] as of this encounter Visit Diagnoses Diagnosis Diarrhea, unspecified type- Primary documented in this encounter Advance Directives Documents on File Type Date Recorded Patient Slab Depiler 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
--- OUTSIDE RECORDS SUMMARY | 2023-06-07 08:15 | External Medical Summary | Summary of Care ---
Author Name Unknown Organization [place] [address] Care Team Providers Care Grass Farmer Name Role Phone Yariel Cardoza MD Primary Care Provide r Encounter Details Date Type Department Care Team Description 09/13/2019 Scan Encounter Unspecified Department <No scans attached> Allergies Active Allergy Reactions Severity Noted Date Comments Adhesive Tape 06/29/2003 Sensitive to Naproxen Hives 05/28/2015 Ivp Dye Hives 08/20/2000 Latex Other (Please comment) 01/05/2015 Contact rash Ibuprofen Rash 01/05/2015 documented as of this encounter (statuses as of 09/15/2019) Medications Medication Sig Dispensed Refills Start Date [...] as of this encounter (statuses as of 09/15/2019) Active Problems Problem Noted Date Moderate episode [...] as of this encounter (statuses as of 09/15/2019) Resolved Problems Problem Noted Date Resolved Date [...] as of this encounter (statuses as of 09/15/2019) Immunizations Name Administration Dates Next Due Pneumococcal [...] Haley Davidson RDN [address] [place] [address] [phone] 10/12/2019 Supervisory Training Specialist [facility] Corrina Layne RN [address] [place] [address] [phone] 11/18/2019 Office Visit Internal Medicine Bettye Valenzuela PA-C [address] [place] [address] [place] [address] [phone] 03/03/2020 Office Visit Internal Medicine Yariel Cardoza MD [address] [place] [address] [place] [address] [phone] Health Maintenance Due Date Last Done Comments [...] Documents on File Type Date Recorded Patient Carrier 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
--- OUTSIDE RECORDS SUMMARY | 2023-06-07 08:15 | External Medical Summary | Summary of Care ---
Author Name Unknown Organization [place] [address] Care Team Providers Care Commercial Loan Assistant Name Role Phone Yariel Cardoza MD Primary Care Provide r Reason for Visit * Reason Comments [facility]: Maintenance Encounter Details Date Type Department Care Team Description 10/12/2019 [facility] Visit [facility] [address] [facility] [place] [address] Corrina Layne RN 132 [facility] [place] [address] [phone] Allergies Active Allergy Reactions Severity Noted Date Comments Adhesive Tape 06/29/2003 Sensitive to Naproxen Hives 05/28/2015 Ivp Dye Hives 08/20/2000 Latex Other (Please comment) 01/05/2015 Contact rash Ibuprofen Rash 01/05/2015 documented as of this encounter (statuses as of 10/12/2019) Medications Medication Sig Dispensed Refills Start Date [...] 0.4 mg by mouth daily. Per [facility] ER 0 06/09/2019 Active ondansetron (ZOFRAN) 4 MG Tablet Take 4 mg by mouth every 6 hours as needed for Nausea. Per [facility] ER 0 06/09/2019 Active Sennosides (SENNA) [...] as of this encounter (statuses as of 10/12/2019) Active Problems Problem Noted Date Moderate episode [...] as of this encounter (statuses as of 10/12/2019) Resolved Problems Problem Noted Date Resolved Date [...] as of this encounter (statuses as of 10/12/2019) Immunizations Name Administration Dates Next Due Pneumococcal [...] Sign Reading Time Taken Comments Blood Pressure 110/60 10/12/2019 11:18 AM EST Pulse 72 10/12/2019 11:18 AM EST Temperature 36.8 C (98.2 F) 10/12/2019 11:[address] Respiratory Rate 18 10/12/2019 11:18 AM EST Oxygen Saturation 94% 10/12/2019 11:18 AM EST RA Inhaled Oxygen Concentration - - Weight - - Height - - Body Mass Index - - documented in this encounter Progress Notes * Corrina Layne RN - 10/12/2019 11:19 AM EST [facility] [employer] 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 No increase in respiratory sx's at this time. Had flu vaccine this year. IBS-symptoms stable other than intermittent gas, bloating, but states that her dicyclomine is effective for abdominal cramping. No further symptoms related to kidney stones. Concerned about some medical bills that she received. Requesting to speak with LYN. TT sent to LYN who will follow up. Will follow up in one month. Problems/Symptoms: Review of Systems Constitutional: Negative for [...] Hematological: Negative. Psychiatric/Behavioral: Negative. Physical Exam: BP 110/60 | Pulse 72 | Temp (Src) 98.2 (Tympanic) | Resp 18 | SaO2 94[RA[% Pain 0 Physical Exam [...] cold/flu/pneumonia season. RNCM will follow up in 4 weeks or sooner if needed. Treatment(s) Given: Evaluation Patient's 'Red Flags': 1. Increased abdominal pain 2. Decreased urinary output 3. Fever, n/v 4. Sob, cough , wheezing not relieved with inhaler/nebs Patient Needs to Remember: Call [facility] with any new/worsening health concerns or problems. Referrals Needed: None at this time. LYN and RD active with patient. Follow Up: Patient encouraged to call the intake phone number for all urgent but not emergent issues. Scheduled to follow up with patient in 4 weeks. Corrina Layne RN 10/12/2018 documented in this encounter Plan of Treatment Upcoming Encounters Date Type Specialty Care Team Description 11/13/2019 Home Visit [facility] Corrina Layne RN [address] [facility] [place] [address] [phone] 11/18/2019 Office Visit Internal Medicine Bettye Valenzuela PA-C [address] [place] [address] [place] [address] [phone] 03/03/2020 Office Visit Internal Medicine Yariel Cardoza MD [address] [place] [address] [place] [address] [phone] Health Maintenance Due Date Last Done Comments [...] Documents on File Type Date Recorded Patient Paper Inserter 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
--- OUTSIDE RECORDS SUMMARY | 2023-06-07 08:15 | External Medical Summary | Summary of Care ---
Author Name Unknown Organization [place] [address] Care Team Providers Care Manager Storage Name Role Phone Yariel Cardoza MD Primary Care Provide r Reason for Visit * Reason Comments Test Results Encounter Details Date Type Department Care Team Description 08/28/2019 Telephone Internal Medicine [address] [place] [id number] Bettye Valenzuela PA-C [address] [place] [address] [place] [address] Test Results Allergies Active Allergy Reactions [...] EVENING MEALS 180 Cap 1 08/27/2019 Active KLOR-CON 10 10 MEQ TBCR TAKE 1 [...] Encounter - Maria Antonia Whiteside LPN - 08/28/2019 12:23 PM EST Spoke to pt, she took to [place], she was diagnosed with salmonella and took last antibiotic today * Telephone Encounter - Bettye Valenzuela PA-C - 08/28/2019 9:16 AM EST Lab results show elevated WBC count, pt seen on 08/18 and said she brought in her stool sample - I have not received any results of stool studies, can you confirm with pt and check with lab? She alsosaw [facility] - did she take to [place] lab? 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
--- OUTSIDE RECORDS SUMMARY | 2023-06-07 08:15 | External Medical Summary | Summary of Care ---
Author Name Unknown Organization [place] [address] Care Team Providers Care Ent Surgeon Name Role Phone Yariel Cardoza MD Primary Care Provide r Reason for Visit * Reason Comments [facility]: Maintenance Encounter Details Date Type Department Care Team Description 06/26/2019 Telephone [facility] [address] [place] [address] [facility], Nurse [address] [place] [address] [phone] [facility]: Maintenance Allergies Active Allergy Reactions Severity Noted Date Comments Adhesive Tape 06/29/2003 Sensitive to Naproxen Hives 05/28/2015 Ivp Dye Hives 08/20/2000 Latex Other (Please comment) 01/05/2015 Contact rash Ibuprofen Rash 01/05/2015 documented as of this encounter (statuses as of 09/21/2019) Medications Medication Sig Dispensed Refills Start Date [...] times daily for constipation). 0 06/12/2019 Active documented as of this encounter (statuses as of 09/21/2019) Active Problems Problem Noted Date Moderate episode [...] as of this encounter (statuses as of 09/21/2019) Resolved Problems Problem Noted Date Resolved Date [...] as of this encounter (statuses as of 09/21/2019) Immunizations Name Administration Dates Next Due Pneumococcal Conjugate Vacc, 13 Valent (Prevnar) 09/21/2015 Pneumococcal Polysaccharide PPV23 (Pneumovax) Seasonal Influenza, Quadriva lent, No Preserve, 6 Mons & Above, IM 07/28/2018,07/31/2017 Seasonal Influenza, Quadrivalent, No Preserve, I M 07/21/2016,07/20/2015 Seasonal Influenza, Trivalen t, with Preserve, 3yr & Above, Split 08/17/2006,08/05/2003 TD - Tetanus/Diptheria (ADULT) 05/03/2004 0 05/03/2014 TDAP (age 10 and older)(Boostrix) 04/19/2018 documented as of this encounter Social History Tobacco Use Types Packs/Day Years Used Date Former Smoker Cigarettes 1.75 38 Quit: 10/07 Smokeless Tobacco: Never Used Comments:quit in 1995 Alcohol Use Drinks/Week oz/Week Comments No Sex Assigned at Date Recorded Not on file Job Start Date Occupation Industry Not on file Not on file Not on file Travel History Travel Start Travel End documented as of this encounter Miscellaneous Notes * Telephone Encounter - Sophia Huynh RN - 06/26/2019 8:58 AM EDT Received phone call from patient asking if any update on [facility]'s assistance with getting hospital bills paid. She also said that she was denied the Access card. Assured pt that message will be sent to [facility] and pt will be called back with update as soon as known. Encouraged pt to call back to [facility] if any further updates, changes, concerns or questions in the meantime. Pt verbalized an understanding & appreciation. TT sent and message routed to [facility]. documented in this encounter Plan of Treatment Upcoming Encounters Date Type Specialty Care Team Description 09/24/2019 Nutrition Services [facility] Haley Davidson RDN [address] [facility] [place] [address] [phone] 10/12/2019 Auto Parts Clerk [facility] Corrina Layne RN [address] [facility] [place] [address] [phone] 11/18/2019 Office Visit Internal Medicine Bettye Valenzuela PA-C [address] [place] [address] [place] [address] [phone] 03/03/2020 Office Visit Internal Medicine Yariel Cardoza MD [address] [place] [address] [place] [address] [phone] Health Maintenance Due Date Last Done Comments [...] Documents on File Type Date Recorded Patient Communications Officer Expl 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
--- OUTSIDE RECORDS SUMMARY | 2023-06-07 08:15 | External Medical Summary | Summary of Care ---
Author Name Unknown Organization [place] [address] Care Team Providers Care Quill Reamer Name Role Phone Leanne Cardoza MD Primary Care Provide r Reason for Visit * Reason Comments Emergency Department Follow-Up Encounter Details Date Type Department Care Team Description 09/14/2019 Telephone Internal Medicine [address] [place] [address] Leanne Cardoza MD [address] [place] [address] [place] [address] Emergency Department Follow-Up Allergies [...] mg by mouth daily. Per [facility] ER 0 06/09/2019 Active ondansetron (ZOFRAN) 4 MG Tablet Take 4 mg by mouth every 6 hours as needed for Nausea. Per [facility] ER 0 06/09/2019 Active Sennosides (SENNA) 8.6 [...] encounter Miscellaneous Notes * Addendum Note - Leanne Cardoza MD [...] Department Follow Up: When was patient seen: 12.08.19 Which ED: [facility] What were they seen for: [...] for patient's call: ER follow up - [facility] 09/13/19 - patient accidentally took husbands medication rather than her own. Patient states that she would like an appointment with Dr. Cardoza or Bettye Valenzuela PA-C on 09/17/19. Caller was transferred to [facility] at the nurse line. documented in this encounter Plan of Treatment Upcoming Encounters Date Type Specialty Care Team Description 09/24/2019 Nutrition Services [facility] Haley Davidson RDN 132 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
--- OUTSIDE RECORDS SUMMARY | 2023-06-07 08:15 | External Medical Summary | Summary of Care ---
Author Name Unknown Organization [place] [address] Care Team Providers Care Frame Nailer Name Role Phone Yariel Cardoza MD Primary Care Provide r Reason for Visit * Reason Comments Test Results Encounter Details Date Type Department Care Team Description 08/28/2019 Telephone Internal Medicine [address] [place] [id number] Bettye Valenzuela PA-C [address] [place] [address] [place] [address] Test Results Allergies Active [...] EST Spoke to pt, she took to [place], she was diagnosed with salmonella and took [...] [facility] - did she take to [place] lab? 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
--- OUTSIDE RECORDS SUMMARY | 2023-06-07 08:15 | External Medical Summary | Summary of Care ---
Author Name Unknown Organization [place] [address] Care Team Providers Care Board Mill Supervisor Name Role Phone Yariel Cardoza MD Primary Care Provide r Reason for Visit * Reason Comments [facility]: Maintenance Encounter Details Date Type Department Care Team Description 10/12/2019 [facility] Visit [facility] 132 [facility] [place] [address] Corrina Layne RN 132 [facility] [place] [address] [phone] Allergies Active Allergy Reactions Severity Noted Date [...] 10/12/2019 11:19 AM EST [facility] Charger Visit Date: 10/12/2018 09:00 am Name: Jayla [...] with inhaler/nebs Patient Needs to Remember: Call [facility] with any new/worsening health concerns or problems. Advanced Care Plannin wishes completed. Will have scanned into chart and return to patient. Referrals Needed: None at this time. LYN [...] Layne RN [address] [place] [address] [phone] 11/18/2019 Office Visit Internal Medicine Bettye Valenzuela PA-C [address] [place] [address] [place] [address] [phone] 03/03/2020 Office Visit Internal Medicine Yariel Cardoza MD [address] [place] [address] [place] [address] [phone] Health Maintenance Due Date Last Done Comments [...] on File Type Date Recorded Patient Unit Educator 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
--- OUTSIDE RECORDS SUMMARY | 2023-06-07 08:15 | External Medical Summary | Summary of Care ---
Author Name Unknown Organization [facility] Address [facility] [place] [address] Care Team Providers Care Digital Experience Manager Name Role Phone Yariel Cardoza MD Primary Care Provide r Encounter Details Date Type Department Care Team Description 09/24/2019 Documentation [facility] 132 [facility] [place] [address] Corrina Layne, SELENE 132 [facility] [place] [address] [phone] Allergies Active Allergy Reactions Severity Noted Date [...] Progress Notes * Corrina Layne RN - 09/24/2019 6:40 PM EST [facility] episode resolved 08/21/19 in error. Pt continues to be active with [facility]. New episode created this date. documented in this encounter Plan of Treatment Upcoming Encounters Date Type Specialty Care Team Description 10/12/2019 Home Visit [facility] Corrina Layne RN [address] [facility] [place] [address] 11/18/2019 Office Visit Internal Medicine Bettye Valenzuela PA-C [address] [place] [address] [place] [address] [phone] 03/03/2020 Office Visit Internal Medicine Yariel Cardoza MD [address] [place] [address] [place] [address] [phone] Health Maintenance Due Date Last Done Comments [...] Documents on File Type Date Recorded Patient Skein Straightener Expl 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
--- OUTSIDE RECORDS SUMMARY | 2023-06-07 08:16 | External Medical Summary | Summary of Care ---
Author Name Unknown Organization [place] [address] Care Team Providers Care Tailor Garment Fitter Name Role Phone Yariel Cardoza MD Primary Care Provide r Reason for Visit * Reason Comments Follow Up Encounter Details Date Type Department Care Team Description 08/18/2019 Office Visit Internal Medicine [address] [place] [address] Bettye Valenzuela PA-C [address] [place] [address] [place] [address] Irritable bowel syndrome with both constipation and diarrhea*; Gastroesophageal reflux disease without esophagitis; HTN, goal below 140/90; Moderate episode of recurrent major depressive disorder (HCC); Hypokalemia Allergies Active Allergy Reactions Severity Noted Date Comments Adhesive Tape 06/29/2003 Sensitive to Naproxen Hives 05/28/2015 Ivp Dye Hives 08/20/2000 Latex Other (Please comment) 01/05/2015 Contact rash Ibuprofen Rash 01/05/2015 documented as of this encounter (statuses as of 08/18/2019) Medications Medication Sig Dispensed Refills Start Date [...] 1 Puff by mouth daily. 0 Active omeprazole (PRILOSEC) 20 MG CPDRIndications:Gas troesophageal reflux disease without esophagitis Take 1 Cap by mouth 2 times a day 30 minutes before morning and evening meals. 60 Cap 5 07/17/2018 Active Dextromethorphan-gu aiFENesin (CORICIDIN HBP CONGESTION/COUGH) 10-200 MG CAPS Take by mouth. Every 4-6 hours as needed for cough 0 Active KLOR-CON 10 10 MEQ TBCR TAKE 1 TABLET BY MOUTH EVERY DAY 90 Tab 1 02/23/2019 Active dicyclomine (BENTYL) 10 MG CapsuleIndications: Irritable [...] EVERY DAY 90 Tab 1 08/03/2019 Active documented as of this encounter (statuses as of 08/18/2019) Active Problems Problem Noted Date Moderate episode [...] as of this encounter (statuses as of 08/18/2019) Resolved Problems Problem Noted Date Resolved Date [...] as of this encounter (statuses as of 08/18/2019) Immunizations Name Administration Dates Next Due Pneumococcal [...] Reading Time Taken Comments Blood Pressure 124/78 08/18/2019 10:30 AM EST Pulse 68 08/18/2019 10:30 AM EST Temperature 37.1 C (98.8 F) 08/18/2019 10:[address] Respiratory Rate 16 08/18/2019 10:30 AM EST Oxygen Saturation - - Inhaled Oxygen Concentration - - Weight 88.9 kg (196 lb) 08/18/2019 10:30 AM EST Height - - Body Mass Index 37.03 06/19/2019 10:45 AM EDT documented in this encounter Progress Notes * Bettye Valenzuela PA-C - 08/18/2019 10:47 AM EST Subjective Jayla Hayes is a 73 year old female. Chief Complaint Patient presents with Follow Up Nursing Notes: Maria Antonia Whiteside, KRISTIAN 08/18/19 1050 Signed Has constant abdominal cramp, loose stool, has to have bm immediately after eating, took stool sample to [facility] yesterday, saw Dr Low-GI- last HPI: Here today for 1 week follow up of abdominal cramping, bloating, diarrhea, and hypokalemia. Seen here last week in ER follow up. She had abd/pelv CT last week which showed diffuse moderate colitis. Stool studies and C diff test has been ordered, patient brought in stool samples yesterday, results pending. States she was unable to collect a stool sample sooner because she actually was constipated for the past 4 days. She was referred to GI for finding of colitis along with her symptoms of abdominal cramping and diarrhea x 6 months. Last colonoscopy was 03/2018 which showed sessile polyps, no colitis or other abnormal finding. Has diagnosis of IBS. Has been taking dicyclomine which maybe helps. She continues to have crampingat times. Was given a diet to follow from GI. Admits to significant stress which started with her 's health issues 01/2019, about 7 months ago. On amitriptyline from PCP which seems to help. 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 Apply to feet amitriptyline (ELAVIL) 25 MG Tablet Take 1 Tab by mouth at bedtime. 30 Tab 5 sertraline (ZOLOFT) 25 MG Tablet Take 1 Tab by mouth daily. 30 Tab 5 Cholecalciferol 1000 units Capsule Take 2,000 Units by mouth daily. ondansetron (ZOFRAN) 4 MG Tablet Take 4 mg by mouth every 6 hours as needed for Nausea. Per [facility] ER tamsulosin (FLOMAX) 0.4 MG Capsule Take 0.4 mg by mouth daily. Per [facility] ER meclizine (ANTIVERT) 25 MG Tablet TAKE 1 TABLET BY MOUTH ONCE EVERY 6 HOURS NEEDED FOR DIZZINESS/VERTIGO 10 Tab 0 atenolol (TENORMIN) 25 MG Tablet TAKE 1 TABLET BY MOUTH EVERY DAY 90 Tab 1 atorvaSTATin (LIPITOR) 20 MG Tablet TAKE 1 TABLET BY MOUTH EVERY DAY 90 Tab 0 amLODIPine (NORVASC) 2.5 MG Tablet Take 1 Tab by mouth daily. 90 Tab 3 fluticasone (FLONASE) 50 MCG/ACT nasal spray Administer 2 Sprays into each nostril daily. 1 Inhaler 5 albuterol-ipratropium (DUONEB) 2.5-0.5 MG/3ML nebulizer solution INHALE 3 MLS VIA NEBULIZER EVERY 4 HOURS NEEDED FOR COUGH, SHORTNESS OF BREATH OR WHEEZING. 360 mL 1 dicyclomine (BENTYL) 10 MG Capsule Take 1 Cap by mouth 4 times a day as needed (abdominal pain,cramping). for abdominal pain 120 Cap 5 KLOR-CON 10 10 MEQ TBCR TAKE 1 TABLET BY MOUTH EVERY DAY 90 Tab 1 omeprazole (PRILOSEC) 20 MG CPDR Take 1 Cap by mouth 2 times a day 30 minutes before morning and evening meals. 60 Cap 5 umeclidinium-vilanterol (ANORO ELLIPTA) 62.5-25 MCG/INH [...] L/min(Oxygen) as directed continuous. 1 Each 0 HYDROcodone-acetaminophen 5-325 mg per tab 5-325 MG per tablet Sennosides (SENNA) 8.6 MG CAPS Take 1 Cap by mouth as needed for Constipation (1 cap up to two times daily for constipation). Dextromethorphan-guaiFENesin (CORICIDIN HBP CONGESTION/COUGH) 10-200 MG CAPS Take by mouth. Every 4-6 hours as needed for cough VENTOLIN HFA 108 (90 Base) MCG/ACT inhaler INHALE 2 PUFFS BY MOUTH EVERY 4 HOURS NEEDED FOR WHEEZING. 1 Inhaler 5 triamcinolone acetonide (ARISTOCORT) 0.025 % ointment APPLY TOPICALLY TO AFFECTED AREA TWICE DAILY 0 polyethylene glycol 3350 (MIRALAX) 255 gram [...] (Please comment) Contact rash Motrin [Ibuprofen] Rash Review of Systems Constitutional: Negative. Respiratory: Negative. Cardiovascular: Negative. Gastrointestinal: Positive for abdominal distention, constipation and diarrhea. Negative for anal bleeding, nausea, rectal pain and vomiting. Genitourinary: Negative. Objective BP 124/78 | Pulse 68 | Temp (Src) 98.8 (Tympanic) | Resp 16 | Wt 196 lbs (88.905kg) | BMI 37.03 kg/m | BSA 1.96 m Physical Exam Vitals signs and nursing note reviewed. Constitutional: Appearance: Normal appearance. HENT: Head: Normocephalic and atraumatic. Cardiovascular: Rate and Rhythm: Normal rate and regular rhythm. Heart sounds: No murmur. No friction rub. No gallop. Pulmonary: Effort: Pulmonary effort is normal. Breath sounds: No wheezing, rhonchi or rales. Abdominal: General: There is distension. Palpations: There is no mass. Tenderness: There is tenderness. There is no guarding. Neurological: Mental Status: She is alert. Psychiatric: Mood and Affect: Mood normal. Results for orders placed or performed in visit on 08/12/19 CHEMISTRY-OUTSIDE Result Value Ref Range CREATININE-OUTSIDE LAB 0.93 0.6 - 1.2 MG/DL GFR ESTIMATED-OUTSIDE LAB >60 >60 ML/MIN POTASSIUM-OUTSIDE LAB 3.0 (A) 3.5 - 5.1 MMOL/L GLUCOSE-OUTSIDE LAB 141 (A) 70 - 99 MG/DL HOURS FASTING TRIGLYCERIDES-OUTSIDE LAB CHOLESTEROL-OUTSIDE LAB HDL-OUTSIDE LAB CHOL/HDL RATIO-OUTSIDE LAB LDL (CALCULATED)-OUTSIDE LAB LDL (DIRECT MEASURE)-OUTSIDE LAB HEMOGLOBIN, [id number] LAB PHOSPHORUS-OUTSIDE LAB PTH-OUTSIDE LAB MICROALBUMIN RATIO-OUTSIDE LAB PROTEIN, UA-OUTSIDE LAB TRACE (A) NEGATIVE HEMOGLOBIN-OUTSIDE LAB 14.7 12.0 - 16.0 G/DL CHEMISTRY COMMENT-OUTSIDE LAB ASSESSMENT/PLAN: Irritable bowel syndrome with both constipation and diarrhea (Primary) - suspect IBS is cause of patient's symptoms, stool studies pending; okay to continue dicyclomine Gastroesophageal reflux disease without esophagitis HTN, goal below 140/90 Moderate episode of recurrent major depressive disorder (HCC) - continue amitriptyline Hypokalemia - recheck potassium level today, test already ordered Follow Up: Return in about 3 months (around 11/18/2019) for f/u with with PCP or me, cancel appt 09/01. | For: f/u with with PCP or me, cancel appt 09/01 Bettye Valenzuela PA-C documented in this encounter Nursing Notes * Maria Antonia Whiteside LPN - 08/18/2019 10:32 AM EST Has constant abdominal cramp, loose stool, has to have bm immediately after eating, took stool sample to [facility] yesterday, saw Dr Low-GI- last documented in this encounter Plan of Treatment Upcoming Encounters Date Type Specialty Care Team Description 09/10/2019 [facility] Visit [facility] Corrina Layne RN [address] [facility] [place] [address] [phone] 11/18/2019 Office Visit Internal Medicine Bettye Valenzuela PA-C [address] [place] [address] [place] [address] [phone] 03/03/2020 Office Visit Internal Medicine Yariel Cardoza MD [address] [facility] [place] [address] [phone] Health Maintenance Due Date Last Done Comments *ADVANCE DIRECTIVE NOT ON FILE 12/23/2015 COLONOSCOPY-EVERY 3 YRS AGES 18-100 03/26/2021 03/26/2018, 03/08/2015 DIABETES SCREEN EVERY 3 YRS-AGE 45 AND ABOVE 08/09/2022 08/09/2019, 05/12/2019, 02/28/2019, Additional history exists DXA-SCREENING EVERY 7 YRS-USE SMARTSET# 3348 TO ORDER 08/17/2022 08/17/2015 DTaP,Tdap,and Td Vaccines (2 - Td) 04/19/2028 [...] Irritable bowel syndrome with both constipation and diarrhea- Primary Gastroesophageal reflux disease without esophagitis Esophageal reflux HTN, goal below 140/90 Unspecified essential hypertension Moderate episode of recurrent major depressive disorder (HCC) Hypokalemia Hypopotassemia documented in this encounter Advance Directives Documents on File Type Date Recorded 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
--- OUTSIDE RECORDS SUMMARY | 2023-06-07 08:16 | External Medical Summary | Summary of Care ---
Author Name Unknown Organization [place] [address] Care Team Providers Care Roller Bearing Inspector Name Role Phone Leanne Cardoza MD Primary Care Provide r Reason for Visit * Reason Comments eRx-Medication Refill Encounter Details Date Type Department Care Team Description 09/02/2019 Refill Internal Medicine [address] [place] [address] Leanne Cardoza MD [address] [place] [address] [place] [address] Allergies Active Allergy Reactions Severity Noted Date Comments Adhesive Tape 06/29/2003 Sensitive to Naproxen Hives 05/28/2015 Ivp Dye Hives 08/20/2000 Latex Other (Please comment) 01/05/2015 Contact rash Ibuprofen Rash 01/05/2015 documented as of this encounter (statuses as of 09/02/2019) Medications Medication Sig Dispensed Refills Start Date [...] [facility] [place] [facility] 0 06/09/2019 Active Sennosides (SENNA) [...] EVERY DAY 90 Tab 1 08/03/2019 Active ciprofloxacin (CIPRO) 500 MG Tablet Take 500 mg by mouth 2 times a day. 0 Active omeprazole (PRILOSEC) 20 MG CPDRIndications:Ga stroesophageal reflux disease without esophagitis TAKE ONE CAPSULE BY MOUTH TWICE DAILY 30 MINUTES PRIOR TO MORNING AND EVENING MEALS 180 Cap 1 08/27/2019 Active potassium chloride ER 10 MEQ TBCR TAKE 1 TABLET BY MOUTH EVERY DAY 90 Tab 3 09/02/2019 Active KLOR-CON 10 10 MEQ TBCR TAKE 1 TABLET BY MOUTH EVERY DAY 90 Tab 1 02/23/2019 9 Discontinue d(Refill) documented as of this encounter (statuses as of 09/02/2019) Active Problems Problem Noted Date Moderate episode [...] as of this encounter (statuses as of 09/02/2019) Resolved Problems Problem Noted Date Resolved Date [...] as of this encounter (statuses as of 09/02/2019) Immunizations Name Administration Dates Next Due Pneumococcal [...] Notes * Telephone Encounter - Vipul Apple, [facility] - 09/02/2019 6:51 PM EST Signed Prescriptions: Disp Refills potassium chloride ER 10 MEQ TBCR 90 Tab 3 Sig: TAKE 1 TABLET BYMOUTH EVERY DAYAuthorizing Provider: LEANNE CARDOZA User: VIPUL APPLE------ documented in this encounter Plan of Treatment Upcoming Encounters Date Type Specialty Care Team Description 09/10/2019 Home Visit [facility] Corrina Layne, RN [address] [place] [address] [phone] 09/24/2019 Nutrition Services [facility] Haley Davidson RDN [address] [place] [address] [phone] 11/18/2019 Office Visit Internal Medicine Bettye Valenzuela PA-C [address] [place] [address] [place] [address] [phone] 03/03/2020 Office Visit Internal Medicine Leanne Cardoza MD [address] [place] [address] [place] [address] [phone] Health Maintenance Due Date Last Done Comments [...] Documents on File Type Date Recorded Patient Securities Teller Expl 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
--- OUTSIDE RECORDS SUMMARY | 2023-06-07 08:16 | External Medical Summary ---
Author Name Unknown Address [address] [facility] [place] [address] Phone Organization K01:[facility] [address] [facility] [place] [address] Laboratory Report Ordering Provider Test Date Status CHEN CHEISTER 08/18/2019 11:10:00 Final Observation Date Value Abnormality Reference Status BUN 08/18/2019 23:17 14 6-20 Fin al Creatinine 08/18/2019 23:17 0.8 0.5-1.0 Fi nal E Glom Filt Rate 08/18/2019 23:17 >60.0 >60 Final Performing Location [facility] [address] [facility] [address]
--- OUTSIDE RECORDS SUMMARY | 2023-06-07 08:16 | External Medical Summary | Summary of Care ---
Author Name Unknown Organization [place] [address] Care Team Providers Care Social Research Assistant Name Role Phone Leanne Cardoza MD Primary Care Provide r Reason for Visit * Reason Comments eRx-Medication Refill Encounter Details Date Type Department Care Team Description 08/26/2019 Refill Internal Medicine [address] [place] [id number] Leanne Cardoza MD [address] [place] [address] [place] [address] Gastroesophageal reflux disease without esophagitis Allergies Active Allergy Reactions Severity Noted Date Comments Adhesive Tape 06/29/2003 Sensitive to Naproxen Hives 05/28/2015 Ivp Dye Hives 08/20/2000 Latex Other (Please comment) 01/05/2015 Contact rash Ibuprofen Rash 01/05/2015 documented as of this encounter (statuses as of 08/27/2019) Medications Medication Sig Dispensed Refills Start Date [...] 1 02/23/2019 Active dicyclomine (BENTYL) 10 MG CapsuleIndications :Irritable [...] Take 0.4 mg by mouth daily. Per [facility] ER 0 06/09/2019 Active ondansetron (ZOFRAN) 4 MG Tablet Take 4 mg by mouth every 6 hours as needed for Nausea. Per [facility] ER 0 06/09/2019 Active Sennosides (SENNA) [...] EVENING MEALS 180 Cap 1 08/27/2019 Active omeprazole (PRILOSEC) 20 MG CPDRIndications:Ga stroesophageal reflux disease without esophagitis Take 1 Cap by mouth 2 times a day 30 minutes before morning and evening meals. 60 Cap 5 07/17/2018 9 Discontinue d(Refill) documented as of this encounter (statuses as of 08/27/2019) Active Problems Problem Noted Date Moderate episode [...] as of this encounter (statuses as of 08/27/2019) Resolved Problems Problem Noted Date Resolved Date [...] as of this encounter (statuses as of 08/27/2019) Immunizations Name Administration Dates Next Due Pneumococcal [...] Miscellaneous Notes * Telephone Encounter - Antonio Lyles, [facility] - 08/27/2019 1:15 PM EST Signed Prescriptions: Disp Refills omeprazole (PRILOSEC) 20 MG CPDR 180 Cap1 Sig: TAKE ONE CAPSULE BY MOUTH TWICE DAILY 30 MINUTES PRIOR TO MORNING AND EVENING MEALSAuthorizing Provider: LEANNE CARDOZA User: ANTONIO LYLES documented in this encounter Plan of Treatment Upcoming Encounters Date Type Specialty Care Team Description 09/10/2019 Home Visit [facility] Corrina Layne, RN [address] [facility] [place] [address] [phone] 11/18/2019 Office Visit Internal Medicine Bettye Valenzuela PA-C [address] [place] [address] [place] [address] [phone] 03/03/2020 Office Visit Internal Medicine Leanne Cardoza MD [address] [place] [address] [place] [address] [phone] Health Maintenance Due Date Last Done Comments [...] Documents on File Type Date Recorded 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
--- OUTSIDE RECORDS SUMMARY | 2023-06-07 08:16 | External Medical Summary ---
Author Name Unknown Address [address] [place] [address] [place] [address] Phone Organization K08:[address] [place] [address] Laboratory Report Ordering Provider Test Date Status MIGUEL CHE 08/18/2019 11:10:00 Final Observation Date Value Abnormality Reference Status Fasting status Patient Ql Reported 08/18/2019 11:15 NOT FASTING Final Triglyceride 08/18/2019 23:17 188 Above high normal 0-174 Final Performing Location [address] [place] [address]
--- OUTSIDE RECORDS SUMMARY | 2023-06-07 08:16 | External Medical Summary | Summary of Care ---
Author Name Unknown Organization [place] [address] Care Team Providers Care Plastics Worker Name Role Phone Yariel Cardoza MD Primary Care Provide r Reason for Visit * Reason Comments Outpatient Testing Encounter Details Date Type Department Care Team Description 08/15/2019 Telephone Family Practice [facility] [address] [place] [address] Dasia Lau, [address] [place], [place] [id number] Outpatient Testing Allergies Active Allergy Reactions Severity Noted Date Comments Adhesive Tape 06/29/2003 Sensitive to Naproxen Hives 05/28/2015 Ivp Dye Hives 08/20/2000 Latex Other (Please comment) 01/05/2015 Contact rash Ibuprofen Rash 01/05/2015 documented as of this encounter (statuses as of 08/15/2019) Medications Medication Sig Dispensed Refills Start Date [...] as of this encounter (statuses as of 08/15/2019) Active Problems Problem Noted Date Moderate episode [...] as of this encounter (statuses as of 08/15/2019) Resolved Problems Problem Noted Date Resolved Date [...] as of this encounter (statuses as of 08/15/2019) Immunizations Name Administration Dates Next Due Pneumococcal [...] encounter Miscellaneous Notes * Telephone Encounter - Niru Khan RN - 08/15/2019 8:31 AM EST Faxed to [facility] lab. * Telephone Encounter - Dasia Lau DO - 08/15/2019 8:07 AM EST Please fax lab orders to [facility] lab this morning. TY Dasia Lau DO documented in this encounter Plan of Treatment Upcoming Encounters Date Type Specialty Care Team Description 08/18/2019 Office Visit Internal Medicine Bettye Valenzuela PA-C [address] [place] [address] [place] [address] 09/01/2019 Office Visit Internal Medicine Bettye Valenzuela PA-C [address] [place] [address] [place] [address] [phone] 09/10/2019 Home Visit [facility] Corrina Layne, RN [address] [facility] [place] [address] [phone] Health Maintenance Due Date Last Done Comments [...] Documents on File Type Date Recorded 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
--- OUTSIDE RECORDS SUMMARY | 2023-06-07 08:16 | External Medical Summary | Summary of Care ---
Author Name Unknown Organization [place] [address] Care Team Providers Care Apparatus Lineman Name Role Phone Yariel Cardoza MD Primary Care Provide r Reason for Visit * Reason Comments Emergency Department Follow-Up Encounter Details Date Type Department Care Team Description 09/14/2019 Telephone Internal Medicine [address] [place] [address] Yariel Cardoza MD [address] [place] [address] [place] [address] Emergency Department Follow-Up Allergies [...] 0.4 mg by mouth daily. Per [facility] [facility] ER 0 06/09/2019 Active ondansetron (ZOFRAN) 4 MG Tablet Take 4 mg by mouth every 6 hours as needed for Nausea. Per [facility] ER 0 06/09/2019 Active Sennosides [...] Follow Up: When was patient seen: 09.13.19 Which ED: [facility] What were they seen for: TOOK [...] for patient's call: ER follow up - [facility] 09/13/19 - patient accidentally took husbands medication rather than her own. Patient states that she would like an appointment with Dr. Cardoza or Bettye Valenzuela PA-C on 09/17/19. Caller was transferred to [facility] at the nurse line. documented in this encounter Plan of Treatment Upcoming Encounters Date Type Specialty Care Team Description 09/24/2019 Nutrition Services [facility] Haley Davidson RDN [address] [facility] [place] [address] [phone] 10/12/2019 Car Body Mechanic [facility] Corrina Layne RN [address] [place] [address] [phone] 11/18/2019 Office Visit Internal Medicine Bettye Valenzuela PA-C [address] [place] [address] [place] [address] [phone] 03/03/2020 Office Visit Internal Medicine Yariel Cardoza MD [address] [place] [address] [place] [address] [phone] Health Maintenance Due Date Last Done Comments [...] Documents on File Type Date Recorded Patient Discharge Coordinator Expl 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
--- OUTSIDE RECORDS SUMMARY | 2023-06-07 08:16 | External Medical Summary | Summary of Care ---
Author Name Unknown Organization [place] [address] Care Team Providers Care Disc Sander Name Role Phone Yariel Cardoza MD Primary Care Provide r Reason for Visit * Reason Comments Test Results Encounter Details Date Type Department Care Team Description 08/28/2019 Telephone Internal Medicine [address] [place] [id number] Bettye Valenzuela PA-C [address] [place] [address] [place] [address] Test Results Allergies Active Allergy Reactions Severity Noted Date Comments Adhesive Tape 06/29/2003 Sensitive to Naproxen Hives 05/28/2015 Ivp Dye Hives 08/20/2000 Latex Other (Please comment) 01/05/2015 Contact rash Ibuprofen Rash 01/05/2015 documented as of this encounter (statuses as of 08/31/2019) Medications Medication Sig Dispensed Refills Start Date [...] day. 0 Active omeprazole (PRILOSEC) 20 MG CPDRIndications:Gas troesophageal reflux disease without esophagitis TAKE ONE CAPSULE BY MOUTH TWICE DAILY 30 MINUTES PRIOR TO MORNING AND EVENING MEALS 180 Cap 1 08/27/2019 Active documented as of this encounter (statuses as of 08/31/2019) Active Problems Problem Noted Date Moderate episode [...] as of this encounter (statuses as of 08/31/2019) Resolved Problems Problem Noted Date Resolved Date [...] as of this encounter (statuses as of 08/31/2019) Immunizations Name Administration Dates Next Due Pneumococcal [...] EST Spoke to pt, [place] took to [place], she was diagnosed with salmonella and took [...] [facility] - did she take to [place]? documented in this encounter Plan of Treatment Upcoming Encounters Date Type Specialty Care Team Description 09/10/2019 [facility] [place] [address] [phone] 11/18/2019 Office Visit Internal Medicine Bettye Valenzuela PA-C [address] [place] [address] [place] [address] [phone] 03/03/2020 Office Visit Internal Medicine Yariel Cardoza MD [address] [facility] [place] [address] [phone] Health Maintenance Due Date Last Done Comments [...]
--- OUTSIDE RECORDS SUMMARY | 2023-06-07 08:16 | External Medical Summary ---
Author Name Unknown Address [address] [place] [address] Phone Organization [facility] [address] [place] [address] Laboratory Report Ordering Provider Test Date Status MIGUEL CHE 08/18/2019 11:10:00 Final Observation Date Value Abnormality Reference Status WBC, Total 08/18/2019 23:14 13.11 Above high normal 4.00 -10.80 Final RBC 08/18/2019 23:14 4.62 3.85-5.15 Fin al Hemoglobin 08/18/2019 23:14 13.4 12.0-15.3 Fi nal HCT 08/18/2019 23:14 43.4 36.0-45.2 Fin al MCV 08/18/2019 23:14 93.9 81.5-97.5 Fin al MCH 08/18/2019 23:14 29.0 27.0-34.0 Fin al MCHC 08/18/2019 23:14 30.9 Below low normal 32.0-3 6.0 Final RDW 08/18/2019 23:14 14.6 11.5-15.5 Fin al Platelets 08/18/2019 23:14 286 140-400 Fin al MPV 08/18/2019 23:14 9.0 6.6-11.1 Fin al nRBC/100 WBC Bld Auto-Rto 08/18/2019 23:14 0 0 Final Segs 08/18/2019 23:14 69.4 40-75 Fin al Lymphs % 08/18/2019 23:14 12.8 Below low normal 18-42 Final Monos 08/18/2019 23:14 11.9 Above high normal 1-11 Final Eosinophils 08/18/2019 23:14 1.1 0-6 F inal Basos 08/18/2019 23:14 0.5 0-2 Fin al Immature Granulocyte, Percent 08/18/2019 23:14 4.3 Above high normal 0-2 Final Neutrophils Bld 08/18/2019 23:14 9.09 Above high normal 1.8-7.7 Final Lymphs, absolute 08/18/2019 23:14 1.68 1.0-4. 8 Final Monos, Abs 08/18/2019 23:14 1.56 Above high normal 0.0- 1.1 Final Eos, Abs 08/18/2019 23:14 0.15 0.0-0.7 Fin al Basos, Abs 08/18/2019 23:14 0.07 0.0-0.2 Fi nal Immature Granulocytes, Number 08/18/2019 23:14 0.56 Above high normal 0.0-0.2 Final Performing Location [facility] [address] [facility] [place] [address]
--- OUTSIDE RECORDS SUMMARY | 2023-06-07 08:16 | External Medical Summary | Summary of Care ---
Author Name Unknown Organization [place] [address] Care Team Providers Care Editor Publications Name Role Phone Yariel Cardoza MD Primary Care Provide r Encounter Details Date Type Department Care Team Description 08/14/2019 Scan Encounter Unspecified Department <No scans attached> [...] [facility] 0 06/09/2019 Active Sennosides (SENNA) [...] Visit Internal Medicine Bettye Valenzuela PA-C [address] [place] [address] [place] [address] [phone] Arrived 09/01/2019 Office Visit Internal Medicine Bettye Valenzuela PA-C [address] [place] [address] [place] [address] [phone] 09/10/2019 Home Visit [facility] Corrina Layne RN [address] [facility] [place] [address] [phone] Health Maintenance Due Date Last Done Comments [...] Documents on File Type Date Recorded Patient Shell Fisherman Expl 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
--- OUTSIDE RECORDS SUMMARY | 2023-06-07 08:16 | External Medical Summary | Summary of Care ---
Author Name Unknown Organization [place] [address] Care Team Providers Care Relief Map Modeler Name Role Phone Yariel Cardoza MD Primary Care Provide r Reason for Visit * Reason Comments [facility]: Engagement nurse tele phone follow up Encounter Details Date Type Department Care Team Description 08/21/2019 Scheduled Telephone [facility] [address] [facility] [place] [address] Chantell Mcdonnell, RN 132 [facility] [place] [address] [phone] Allergies Active Allergy Reactions Severity Noted Date Comments Adhesive Tape 06/29/2003 Sensitive to Naproxen Hives 05/28/2015 Ivp Dye Hives 08/20/2000 Latex Other (Please comment) 01/05/2015 Contact rash Ibuprofen Rash 01/05/2015 documented as of this encounter (statuses as of 08/21/2019) Medications Medication Sig Dispensed Refills Start Date [...] mouth 2 times a day. 0 Active documented as of this encounter (statuses as of 08/21/2019) Active Problems Problem Noted Date Moderate episode [...] as of this encounter (statuses as of 08/21/2019) Resolved Problems Problem Noted Date Resolved Date [...] as of this encounter (statuses as of 08/21/2019) Immunizations Name Administration Dates Next Due Pneumococcal [...] this AM. She is aware to call [facility] with any changes to her health. She verbalized an understanding and will comply. documented in this encounter Plan of Treatment Upcoming Encounters Date Type Specialty Care Team Description 09/10/2019 Home Visit [facility]rina Layne RN [facility] [place] [address] [phone] 11/18/2019 Office Visit Internal Medicine Bettye Valenzuela PA-C [address] [place] [address] [place] [address] [phone] 03/03/2020 Office Visit Internal Medicine Yariel Cardoza MD [address] [facility] [place] [address] [phone] Health Maintenance Due Date Last Done Comments [...] Documents on File Type Date Recorded Patient Corrosion Control Technician Expl 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
--- OUTSIDE RECORDS SUMMARY | 2023-06-07 08:16 | External Medical Summary | Summary of Care ---
Author Name Unknown Organization [place] [address] Care Team Providers Care Cat Wagon Operator Name Role Phone Yariel Cardoza MD Primary Care Provide r Reason for Visit * Reason Comments [facility]: Maintenance Encounter Details Date Type Department Care Team Description 09/10/2019 Home Visit [facility] 132 [facility] [place] [address] Corrina Layne RN 132 [facility] [place] [address] [phone] Allergies Active Allergy Reactions Severity Noted Date Comments Adhesive Tape 06/29/2003 Sensitive to Naproxen Hives 05/28/2015 Ivp Dye Hives 08/20/2000 Latex Other (Please comment) 01/05/2015 Contact rash Ibuprofen Rash 01/05/2015 documented as of this encounter (statuses as of 09/11/2019) Medications Medication Sig Dispensed Refills Start Date [...] EVERY DAY 90 Tab 3 09/02/2019 Active ciprofloxacin (CIPRO) 500 MG Tablet Take 500 mg by mouth 2 times a day. 0 9 Discontinue d(End of Procedure) documented as of this encounter (statuses as of 09/11/2019) Active Problems Problem Noted Date Moderate episode [...] as of this encounter (statuses as of 09/11/2019) Resolved Problems Problem Noted Date Resolved Date [...] as of this encounter (statuses as of 09/11/2019) Immunizations Name Administration Dates Next Due Pneumococcal [...] Reading Time Taken Comments Blood Pressure 122/78 09/10/2019 10:00 AM EST Pulse 64 09/10/2019 10:00 AM EST Temperature 37.2 C (99 F) 09/10/2019 10:00 AM EST Respiratory Rate 18 09/10/2019 10:00 AM EST Oxygen Saturation 95% 09/10/2019 10:00 AM EST RA Inhaled Oxygen Concentration - - Weight - - Height - - Body Mass Index - - documented in this encounter Progress Notes * Corrina Layne, SELENE - 09/11/2019 6:40 AM EST [facility] Regional Driver Visit Date: 09/10/2019 09:00 am Name: Jayla Hayes : 1945 Current Concerns: Pt seen for follow up related to COPD, HTN, IBS, renal colic Recently was diagnosed with salmonella. Was contacted by [facility] and prescribed Cipro which she completed. Is feeling much better. Denies abdominal pain, N/V/D. aking amitryptyline for IBS symptoms and states that it has helped her typical abdominal cramping significantly and only occasionally gets some cramps with gas, but otherwise, denies pain. Also helping her to sleep better. Has all COPD medications. No respiratory sx's at this time. Does not have rescue kit in home. Will refer to [facility]. Blood pressures improved. Has lost weight mostly due to being ill with the salmonella, but is trying to watch diet to maintain and lose more. Also active with RD. Will follow up in one month. Problems/Symptoms: [...] Hematological: Negative. Psychiatric/Behavioral: Negative. Physical Exam: BP 122/78 | Pulse 64 | Temp (Src) 99 (Tympanic) | Resp 18 | SaO2 95[RA[% Pain 0 Physical Exam Constitutional: She is [...] you. Treatment/Plan: Continue with all ordered medications. RD appt 08/14/19-reminded patient. Frequent ambulation. Monitor for decreased urinary output, fever, increased pain, hematuria and report. Monitor for COPD flare with start of cold/flu/pneumonia season. RNCM will follow up in 4 weeks or sooner if needed. Treatment(s) Given: Evaluation [facility] ([facility]) Fall Risk Assessment Tool Age 65+: 1=Yes (09/11/19599) Diagnosis (3 or more co-existing): 1=Yes (09/11/19599) Prior history of falls within 3 months: 0=No (09/11/19599) Incontinence: 0=No (09/11/19599) Visual impairment: 0=No (09/11/19599) Impaired functional mobility: 1=Yes (09/11/19599) Environmental hazards: 1=Yes (09/11/19599) Poly Pharmacy (4 or more prescriptions - any type): 1=Yes (09/11/19599) Pain affecting level of function: 0=No (09/11/19599) Cognitive impairment: 0=No (09/11/19599) Score - a score of 4 or more is considered at risk for fallin (09/11/19599) Patient's 'Red Flags': 1. Increased abdominal pain 2. Decreased urinary output 3. Fever, n/v 4. Sob, cough , wheezing not relieved with inhaler/nebs Patient Needs to Remember: Call [facility] with any new/worsening health concerns or problems. Referrals Needed: None at this time. LYN and RD active with patient. Follow Up: Patient encouraged to call the intake phone number for all urgent but not emergent issues. Scheduled to follow up with patient in 4 weeks. Corrina Layne RN 08/07/2019 documented in this encounter Plan of Treatment Upcoming Encounters Date Type Specialty Care Team Description 09/24/2019 Nutrition Services [facility] Haley Davidson RDN [address] [place] [address] [phone] 10/12/2019 Regional Driver [facility] Corrina Layne RN [address] [place] [address] [phone] 11/18/2019 Office Visit Internal Medicine Bettye Valenzuela PA-C [address] [place] [address] [place] [address] [phone] 03/03/2020 Office Visit Internal Medicine Yariel Cardoza MD [address] [facility] [place] [address] [phone] Health Maintenance Due Date Last Done Comments [...] on File Type Date Recorded Patient Head Greenskeeper 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
--- OUTSIDE RECORDS SUMMARY | 2023-06-07 08:17 | External Medical Summary | Summary of Care ---
Author Name Unknown Organization [place] [address] Care Team Providers Care Damage Cutter Name Role Phone Yariel Cardoza MD Primary Care Provide r Encounter Details Date Type Department Care Team Description 08/12/2019 Orders Only Internal Medicine [address] [address] Yariel Cardoza MD [address] [place] [address] [place] [address] Allergies Active Allergy Reactions Severity Noted Date Comments Adhesive Tape 06/29/2003 Sensitive to Naproxen Hives 05/28/2015 Ivp Dye Hives 08/20/2000 Latex Other (Please comment) 01/05/2015 Contact rash Ibuprofen Rash 01/05/2015 documented as of this encounter (statuses as of 08/12/2019) Medications Medication Sig Dispensed Refills Start Date [...] as of this encounter (statuses as of 08/12/2019) Active Problems Problem Noted Date Moderate episode [...] as of this encounter (statuses as of 08/12/2019) Resolved Problems Problem Noted Date Resolved Date [...] as of this encounter (statuses as of 08/12/2019) Immunizations Name Administration Dates Next Due Pneumococcal [...] Encounters Date Type Specialty Care Team Description 08/14/2019 Home Visit [facility] Haley Davidson RDN [address] [place] [address] [phone] 08/18/2019 Office Visit Internal Medicine Bettye Valenzuela PA-C [address] [place] [address] [place] [address] [phone] 09/01/2019 Office Visit Internal Medicine Bettye Valenzuela PA-C [address] [place] [address] [place] [address] [phone] 09/10/2019 [facility] Visit [facility] [place] [address] [phone] Health Maintenance Due Date Last Done Comments *ADVANCE DIRECTIVE NOT ON FILE 12/23/2015 *NEPHROLOGY REFERRAL DUE TO RESISTANT HTN 06/21/2019 *DEPRESSION SCREENING,ANNUAL FOR PTS 12 AND OVER 07/31/2019 COLONOSCOPY-EVERY 3 YRS AGES 18-100 03/26/2021 03/26/2018, 03/08/2015 DIABETES SCREEN EVERY 3 YRS-AGE 45 AND ABOVE 05/12/2022 05/12/2019, 02/28/2019, 07/28/2018, Additional history exists DXA-SCREENING EVERY 7 YRS-USE [...] Priority Date/Time Associated Diagnosis Comments CHEMISTRY-OUTSIDE Routine 08/09/2019 documented in this encounter Results * CHEMISTRY-OUTSIDE (08/09/2019) CREATININE-OUTSIDE LAB 0.93 0.6 - 1.2 MG/DL OUTSIDE LAB (SEE SCANNED REPORT) GFR ESTIMATED-OUTSIDE LAB >60 >60 ML/MIN OUTSIDE LAB (SEE SCANNED REPORT) POTASSIUM-OUTSIDE LAB 3.0(A) 3.5 - 5.1 MMOL/L OUTSIDE LAB (SEE SCANNED REPORT) GLUCOSE-OUTSIDE LAB 141(A) 70 - 99 MG/DL OUTSIDE LAB (SEE [...] LAB OUTSIDE LAB (SEE SCANNED REPORT) HEMOGLOBIN, I4P-NJMUYNE LAB OUTSIDE LAB (SEE SCANNED REPORT) PHOSPHORUS-OUTSIDE LAB OUTSIDE LAB (SEE SCANNED REPORT) PTH-OUTSIDE LAB OUTSIDE LAB (SEE SCANNED REPORT) MICROALBUMIN RATIO-OUTSIDE LAB OUTSIDE LAB (SEE SCANNED REPORT) PROTEIN, UA-OUTSIDE LAB TRACE(A) NEGATIVE OUTSIDE LAB (SEE SCANNED REPORT) HEMOGLOBIN-OUTSIDE LAB 14.7 12.0 - 16.0 G/DL OUTSIDE LAB (SEE SCANNED REPORT) CHEMISTRY COMMENT-OUTSIDE LAB Comment:SEE SCAN ER [facility]: CBC, UA, CMP, LIPASE, INFLU A/B OUTSIDE LAB (SEE SCANNED REPORT) Specimen Narrative Performed At Performing Organization Address City/State/Zipcod e Phone Number OUTSIDE LAB (SEE SCANNED REPORT) documented in this encounter Advance Directives Documents on File Type Date Recorded Patient Network Support Analyst Expl 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
--- OUTSIDE RECORDS SUMMARY | 2023-06-07 08:17 | External Medical Summary | Summary of Care ---
Author Name Unknown Organization [place] [address] Care Team Providers Care Hosiery Repairer Name Role Phone Yariel Cardoza MD Primary Care Provide r Reason for Visit * Reason Comments Advice Appointment GI/IKER/Arturo Encounter Details Date Type Department Care Team Description 08/13/2019 Telephone Internal Medicine [address] [place] [address] Yariel Cardoza MD [address] [place] [address] [place] [address] Advice; Appointment (CATHY/IKER/Arturo ) Allergies Active Allergy Reactions Severity Noted Date Comments Adhesive Tape 06/29/2003 Sensitive to Naproxen Hives 05/28/2015 Ivp Dye Hives 08/20/2000 Latex Other (Please comment) 01/05/2015 Contact rash Ibuprofen Rash 01/05/2015 documented as of this encounter (statuses as of 08/13/2019) Medications Medication Sig Dispensed Refills Start Date [...] as of this encounter (statuses as of 08/13/2019) Active Problems Problem Noted Date Moderate episode [...] as of this encounter (statuses as of 08/13/2019) Resolved Problems Problem Noted Date Resolved Date [...] as of this encounter (statuses as of 08/13/2019) Immunizations Name Administration Dates Next Due Pneumococcal [...] Telephone Encounter - Zulema Land OSA - 08/13/2019 4:29 PM EST 08/14/19 11:40 am Appt with SOLEDAD Bishop, [facility] Pt aware. Referral and records faxed to [phone]. * Telephone Encounter - Irena Walton OSA - 08/13/2019 3:43 PM EST [facility]/Dr. Low states she received Gastro referral but it lists pt as having an appt 09/08/19 @ 10:30am. [facility] states they do not have pt in their schedule. documented in this encounter Plan of Treatment Upcoming Encounters Date Type Specialty Care Team Description 08/14/2019 Home Visit [facility] Haley Davidson RDN [address] [place] [address] [phone] 08/18/2019 Office Visit Internal Medicine Bettye Valenzuela PA-C [address] [place] [address] [place] [address] [phone] 09/01/2019 Office Visit Internal Medicine Bettye Valenzuela PA-C [address] [place] [address] [place] [address] [phone] 09/10/2019 Home Visit [facility] Corrina Layne RN [address] [place] [address] [phone] Health Maintenance Due Date Last Done Comments [...] Documents on File Type Date Recorded Patient Disabilities Services Officer Expl 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
--- OUTSIDE RECORDS SUMMARY | 2023-06-07 08:17 | External Medical Summary | Summary of Care ---
Author Name Unknown Organization [facility] [place] [address] Care Team Providers Care Lever Tender Name Role Phone Yariel Cardoza MD Primary Care Provide r Encounter Details Date Type Department Care Team Description 08/09/2019 Result Scan Unspecified Department <No scans attached> [...] Specialty Care Team Description 08/14/2019 [facility]aley Davidson RDN [facility] [place] [address] [phone] 08/18/2019 Office Visit Internal Medicine Bettye Valenzuela PA-C [address] [place] [address] [place] [address] [phone] 09/01/2019 Office Visit Internal Medicine Bettye Valenzuela PA-C [address] [place] [address] [place] [address] [phone] 09/10/2019 Home Visit [facility] Corrina Layne, SELENE 132 [facility] [place] [address] [phone] Health Maintenance Due Date Last Done Comments [...] Date/Time Associated Diagnosis Comments RADIOLOGY SCANNED RESULT 08/09/2019 documented in this encounter Results * RADIOLOGY SCANNED RESULT (08/09/2019) Specimen Narrative Performed At documented in this encounter Advance Directives Documents on File Type Date Recorded Patient Health Therapist Expl 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
--- OUTSIDE RECORDS SUMMARY | 2023-06-07 08:17 | External Medical Summary | Summary of Care ---
Author Name Unknown Organization [place] [address] Care Team Providers Care Band Saw Filer Name Role Phone Yariel Cardoza MD Primary Care Provide r Reason for Visit * Reason Comments Referral gastro/[facility] Encounter Details Date Type Department Care Team Description 08/13/2019 Telephone Internal Medicine [address] [id number] Yariel Cardoza MD [address] [place] [address] [place] [address] Referral (gastro/[facility] ) Allergies Active Allergy Reactions Severity Noted [...] Encounter - Zulema Land OSA - 08/13/2019 4:35 PM EST 08/14/19 11:40 am Appt with Vanessa Morris, [facility], [facility], [address] [facility]. Pt aware. Referral and records faxed to [phone]. * Telephone Encounter - Yariel Cardoza MD - 08/13/2019 1:38 PM EST Patient has the referral. Please schedule with Dr. Low * Telephone Encounter - Eliza Serrano OSA - 08/13/2019 8:59 AM EST I called patient to schedule a gastro appointment from referral, with Vilma Austin. Patient statesshe asked that this referral be sent to [place], Dr Low, as she receives a discount for using [facility]. Thank you. documented in this encounter Plan of Treatment Upcoming Encounters Date Type Specialty Care Team Description 08/14/2019 Home Visit [facility] Haley Davidson RDN [address] [place] [address] [phone] 08/18/2019 Office Visit Internal Medicine Bettye Valenzuela PA-C [address] [place] [address] [place] [address] [phone] 09/01/2019 Office Visit Internal Medicine Bettye Valenzuela PA-C [address] [place] [address] [place] [address] [phone] 09/10/2019 Home Visit [facility] Corrina Layne RN [address] [place] [address] [phone] Health Maintenance Due Date Last Done Comments [...] Documents on File Type Date Recorded Patient 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
--- OUTSIDE RECORDS SUMMARY | 2023-06-07 08:17 | External Medical Summary | Summary of Care ---
Author Name Unknown Organization [place] [address] Care Team Providers Care Entry Writer Name Role Phone Yariel Cardoza MD Primary Care Provide r Reason for Visit * Reason Comments Medical Nutrition Therapy Encounter Details Date Type Department Care Team Description 08/14/2019 Home Visit [facility] [address] [facility] [place] [address] Haley Davidson RDN [address] [place] [address] [phone] COPD, severe (HCC)*; Dyslipidemia, goal LDL below 100 Allergies Active Allergy Reactions Severity Noted Date Comments Adhesive Tape 06/29/2003 Sensitive to Naproxen Hives 05/28/2015 Ivp Dye Hives 08/20/2000 Latex Other (Please comment) 01/05/2015 Contact rash Ibuprofen Rash 01/05/2015 documented as of this encounter (statuses as of 08/14/2019) Medications Medication Sig Dispensed Refills Start Date [...] as of this encounter (statuses as of 08/14/2019) Active Problems Problem Noted Date Moderate episode [...] as of this encounter (statuses as of 08/14/2019) Resolved Problems Problem Noted Date Resolved Date [...] as of this encounter (statuses as of 08/14/2019) Immunizations Name Administration Dates Next Due Pneumococcal [...] Progress Notes * Haley Davidson RDN - 08/14/2019 11:07 PM EST NUTRITION FOLLOW-UP NOTE - OUTPATIENT [facility] Name: Jayla Hayes Location: [facility] Date: 08/14/2019 Time: 11:07 PM Patient was identified by name and date. NUTRITION ASSESSMENT: Client History 73 year old female with complex medical history including but not limited to kidney stones, HTN, IBS and dyslipidemia who is seen in the home for nutrition follow-up. Pt c/o significant abdominal pain. Pt states she is has had diarrhea since for the past 8days. Pt reportedly had GI appt today; pt is to get "stool culture tests". Pt states she was in the ER last week d/t signification pain. Barriers to Learning: None (08/14/19 152) Special Education Needs: None (08/14/191526) Physical Activity: Sedentary (08/14/191526) Food/Nutrition-Related History Diet Recall/Food Logs Indicate: Breakfast: 2 over-easy eggs (08/14/191526) Lunch: cottage cheese (08/14/191526) Dinner: none (08/14/191526) Drinks: water (08/14/191526) Restaurant Meals: At least once a month (08/14/19 152) Alcohol Use: None (08/14/191526) Medications Changes/Updates: None reported Nutrition-Focused Physical Findings Appearance: WNWD;Obese (08/14/19 153) Fluid accumulation: Fluid Assessment: Normal (08/14/19 153) Fluid Location: N/A (08/14/19 153) Fluid Description: N/A (08/14/19 153) Digestive system: Digestive: Diarrhea;Appetite: poor;Nausea;Vomiting (08/14/19 153) Nerves and cognition: Nerves and Cognition: Awake, alert;Oriented (08/14/19 153) Nutritionally significant wound burden: Skin Assessment for Dietitians: Intact (08/14/19 153) Other pertinent physical findings: Pt ambulating in home w/out assistance Anthropometric Measurements Wt Readings from Last 3 Encounters: 08/11/19 87.5 kg (193 lb) 07/17/19 90.7 kg (200 lb) 06/19/19 92.5 kg (204 lb) Weight Change: Percent change: 5-10% (08/14/191527) Gain or Loss?: Loss (08/14/191527) Over Length of time: 1-2 weeks (08/14/191527) Biochemical Data, Medical Tests, and Procedures No current pertinent labs Previous Nutrition Diagnosis: Food and nutrition-related knowledge deficit related to Inadequate fruit and vegetable intake, Significant sodium intake as evidenced by Reported diet and/or activity recall Progress towards goals: progressing CURRENT NUTRITION DIAGNOSIS Same as previous NUTRITION INTERVENTION: Education: Comprehensive nutrition education (08/14/191531) Nutrition Counseling: Theoretical basis/approach (08/14/191531) Nutrition Prescription: Diet: Fiber Restricted;2 gm Sodium Restricted (08/14/191531) Current Goals: Patient will LIMIT daily intake of fiber while following low fiber/resudue diet Patient will demonstrate or verbalize knowledge of diet. Dietitian Action: Encouraged patient to use the "5 and 20 rule" when label reading for sodium content. Reviewed low fiber diet per pt request NUTRITION MONITORING AND EVALUATION: The following will be monitored and evaluated at the next visit: Monitoring: Monitor weight;Monitor PO Intake (08/14/192257) Plan for Return Appointment: 1-2 months (08/14/192257) Minutes of MNT: 45 (38-52) (08/14/192257) Time In: 1415 (08/14/191526) Time Out: 1500 (08/14/192257) [facility] documented in this encounter Plan of Treatment Upcoming Encounters Date Type Specialty Care Team Description 08/18/2019 Office Visit Internal Medicine Bettye Valenzuela PA-C [address] [place] [address] [place] [address] [phone] 09/01/2019 Office Visit Internal Medicine Bettye Valenzuela PA-C [address] [place] [address] [place] [address] [phone] 09/10/2019 Home Visit [facility] Corrina Layne RN [address] [place] [address] [phone] Health Maintenance Due Date Last Done Comments [...] Documents on File Type Date Recorded Patient Fsr Expl 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
--- OUTSIDE RECORDS SUMMARY | 2023-06-07 08:17 | External Medical Summary | Summary of Care ---
Author Name Unknown Organization [place] [address] Care Team Providers Care Mold Machine Operator Name Role Phone Yariel Cardoza MD Primary Care Provide r Reason for Referral * Precert (Routine) Status Reason Specialty Diagnoses / Procedures Referred By Contact Referred To Contact Authorized Precert Radiology Diagnoses LLQ abdominal pain Vomiting and diarrhea Procedures CT ABD/PELVIS WO IV CONTRAST - W ORAL CONTRAST Bettye Valenzuela PA-C [address] [place] [address] [place] [address] Reason for Visit * Reason Comments Emergency Department Follow-Up Encounter Details Date Type Department Care Team Description 08/11/2019 Office Visit Internal Medicine [address] [place] [address] Bettye Valenzuela PA-C [address] [place] [address] [place] [address] [phone] LLQ abdominal pain*; Vomiting and diarrhea; Hypokalemia; Moderate episode of recurrent major depressive disorder (HCC); Pulmonary hypertension (HCC); Irritable bowel syndrome with both constipation and diarrhea; Gastroesophageal reflux disease without esophagitis; HTN, goal below 140/90; COPD, severe (HCC); Lumbar degenerative disc disease Allergies Active Allergy Reactions Severity Noted Date Comments Adhesive Tape 06/29/2003 Sensitive to Naproxen Hives 05/28/2015 Ivp Dye Hives 08/20/2000 Latex Other (Please comment) 01/05/2015 Contact rash Ibuprofen Rash 01/05/2015 documented as of this encounter (statuses as of 08/11/2019) Medications Medication Sig Dispensed Refills Start Date [...] daily. 0 Active omeprazole (PRILOSEC) 20 MG CPDRIndications:Ga stroesophageal reflux disease without esophagitis Take 1 Cap by mouth 2 times a day 30 minutes before morning and evening meals. 60 Cap 5 07/17/2018 Active Dextromethorphan-g uaiFENesin (CORICIDIN HBP CONGESTION/COUGH) 10-200 [...] EVERY DAY 90 Tab 1 08/03/2019 Active docusate sodium (COLACE) 100 MG Capsule Take 100 mg by mouth 2 times a day. 0 9 Discontinue d(Patient preference/ discontinua tion) documented as of this encounter (statuses as of 08/11/2019) Active Problems Problem Noted Date Moderate episode [...] as of this encounter (statuses as of 08/11/2019) Resolved Problems Problem Noted Date Resolved Date [...] as of this encounter (statuses as of 08/11/2019) Immunizations Name Administration Dates Next Due Pneumococcal [...] Sign Reading Time Taken Comments Blood Pressure 110/78 08/11/2019 10:37 AM EST Pulse 80 08/11/2019 10:37 AM EST Temperature 37.3 C (99.1 F) 08/11/2019 10:[address] Respiratory Rate 16 08/11/2019 10:37 AM EST Oxygen Saturation - - Inhaled Oxygen Concentration - - Weight 87.5 kg (193 lb) 08/11/2019 10:37 AM EST Height - - Body Mass Index 36.47 06/19/2019 10:45 AM EDT documented in this encounter Progress Notes * Bettye Valenzuela PA-C - 08/11/2019 10:42 AM EST Subjective Jayla Hayes is a 73 year old female. Chief Complaint Patient presents with Emergency Department Follow-Up HPI: Here today for ER follow up. Was at [facility] 2 days ago on 08/09 with c/o vomiting and diarrhea that started the night before. She was at a sabianism dinner and developed a headache, achiness, and lower abdominal pain. She went home and took tylenol which helped her headache. Vomiting and diarrhea worsened. The following day she went to ED. Abdominal pain started in lower middle abdomen and radiated to upper abdomen and out bilaterally. She has actually had nausea and diarrhea since February 2019, about 6 months ago, but it has been severely worse in past 2-3 days. In the ER labs showed slightly elevated white count, labs otherwise normal. She tested negative for flu A and flu B. Abdominal xray was normal. She was given IV antibiotic and discharged home with zofran. Yesterday she had diarrhea every 15 minutes. This morning she had a soft formed bowel movement with small amount of bright red blood at the end, unsure if hemorrhoid. She denies any blood in the stool or black tarry stool. No h/o GI bleed. No anticoagulant or NSAID use. No more vomiting or diarrhea in the past several hours. No fever, chills, sweats, weakness, dizziness, urinary symptoms. PMH: Patient Active Problem List Diagnosis Code [...] BY MOUTH EVERY DAY 90 Tab 1 HYDROcodone-acetaminophen 5-325 mg per tab 5-325 MG per tablet Urea 20 % CREA Apply topically to affected area. Apply to feet amitriptyline (ELAVIL) 25 MG Tablet Take 1 Tab by mouth at bedtime. 30 Tab 5 sertraline (ZOLOFT) 25 MG Tablet Take 1 Tab by mouth daily. 30 Tab 5 Sennosides (SENNA) 8.6 MG CAPS Take 1 Cap by mouth as needed for Constipation (1 cap up to two times daily for constipation). Cholecalciferol 1000 units Capsule Take 2,000 Units by mouth daily. ondansetron (ZOFRAN) 4 MG Tablet Take 4 mg by mouth every 6 hours as needed for Nausea. Per [facility] ER tamsulosin (FLOMAX) 0.4 MG Capsule Take 0.4 mg by mouth daily. Per [facility] ER meclizine (ANTIVERT) 25 MG [...] BY MOUTH EVERY DAY 90 Tab 1 Dextromethorphan-guaiFENesin (CORICIDIN HBP CONGESTION/COUGH) 10-200 MG CAPS Take by mouth. Every 4-6 hours as needed for cough omeprazole (PRILOSEC) 20 MG CPDR Take 1 [...] VIA NEBULIZER TWO TIMES A DAY. 3 triamcinolone acetonide (ARISTOCORT) 0.025 % ointment APPLY TOPICALLY TO AFFECTED AREA TWICE DAILY 0 oxygen GAS Use 2 L/min(Oxygen) as directed [...] Cardiovascular: Negative. Gastrointestinal: Positive for abdominal distention, abdominal pain, diarrhea, nausea and vomiting.Negative for constipation and rectal pain. Genitourinary: Negative. Neurological: Negative. Objective BP 110/78 | Pulse 80 | Temp (Src) 99.1 (Tympanic) | Resp 16 | Wt 193 lbs (87.544kg) | BMI 36.47 kg/m | BSA 1.94 m Physical Exam Vitals signs and nursing note reviewed. Constitutional: General: She is not in acute distress. Appearance: Normal appearance. She is obese. She is not ill-appearing, toxic- appearing or diaphoretic. Cardiovascular: Rate and Rhythm: Normal rate and regular rhythm. Heart sounds: No murmur. No friction rub. No gallop. Pulmonary: Effort: Pulmonary effort is normal. No respiratory distress. Breath sounds: Normal breath sounds. No wheezing, rhonchi or rales. Abdominal: General: Bowel sounds are normal. There is distension. Tenderness: There is tenderness. There is no guarding. Comments: LLQ and midline lower abdominal tenderness Neurological: Mental Status: She is alert. ASSESSMENT/PLAN: LLQ abdominal pain (Primary) - CT ABD/PELVIS WO IV CONTRAST - W ORAL CONTRAST Check abd/pelv CT r/o diverticulitis. Patient to notify office if any worsening or rectal bleeding.If CT negative and sx persist would refer to GI for further evaluation due to ongoing nausea and diarrhea x 6 months. Last colonoscopy reviewed, performed 03/2018. Upper endoscopy 07/22/2018. Vomiting and diarrhea - CT ABD/PELVIS WO IV CONTRAST - W ORAL CONTRAST - CBC/DIFF; Future; Expected date: 08/18/2019 - BASIC METAB PANEL, BMP; Future; Expected date: 08/18/2019 Hypokalemia - BASIC METAB PANEL, BMP; Future; Expected date: 08/18/2019 Continue potassium supplement, recheck potassium level next week. Moderate episode of recurrent major depressive disorder (HCC) Pulmonary hypertension (HCC) Irritable bowel syndrome with both constipation and diarrhea Gastroesophageal reflux disease without esophagitis HTN, goal below 140/90 COPD, severe (HCC) Lumbar degenerative disc disease Follow Up: Return in about 1 week (around 08/18/2019) for recheck with me. | For: recheck with me Bettye Valenzuela PA-C documented in this encounter Nursing Notes * Maria Antonia Whiteside LPN - 08/11/2019 10:41 AM EST [facility] 11/, still has diarrhea, was bloody this morning, nausea, abdominal pain and bloating documented in this encounter Plan of Treatment Upcoming Encounters Date Type Specialty Care Team Description 08/14/2019 [facility] Haley Davidson RDN [address] [place] [address] [phone] 08/18/2019 Office Visit Internal Medicine Bettye Valenzuela PA-C [address] [place] [address] [place] [address] [phone] 09/01/2019 Office Visit Internal Medicine Bettye Valenzuela PA-C [address] [place] [address] [place] [address] [phone] 09/10/2019 Home Visit [facility] Corrina Layne RN [address] [facility] [place] [address] [phone] Scheduled Orders Name Type Priority Associated Diagnoses Orde r Schedule CT ABD/PELVIS WO IV CONTRAST - W ORAL CONTRAST Medical Imaging Routine LLQ abdominal pain Vomiting and diarrhea Ordered: 08/11/2019 CBC/DIFF Lab Routine Vomiting and diarrhea Expected: 08/18/2019 (Approximate), Expires: 08/11/2020 BASIC METAB PANEL, BMP Lab Routine Vomiting and diarrhea Hypokalemia Expected: 08/18/2019 (Approximate), Expires: 08/10/2020 Health Maintenance Due Date Last Done Comments [...] as of this encounter Visit Diagnoses Diagnosis LLQ abdominal pain- Primary Abdominal pain, left lower quadrant Vomiting and diarrhea Vomiting alone Hypokalemia Hypopotassemia Moderate episode of recurrent major depressive disorder (HCC) Pulmonary hypertension (HCC) Other chronic pulmonary heart diseases Irritable bowel syndrome with both constipation and diarrhea Gastroesophageal reflux disease without esophagitis Esophageal reflux HTN, goal below 140/90 Unspecified essential hypertension COPD, severe (HCC) Chronic airway obstruction, not elsewhere classified Lumbar degenerative disc disease Degeneration of lumbar or lumbosacral intervertebral disc documented in this encounter Advance Directives Documents on File Type Date Recorded Patient Disaster Recovery Manager 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
--- OUTSIDE RECORDS SUMMARY | 2023-06-07 08:17 | External Medical Summary | Summary of Care ---
Author Name Unknown Organization [place] [address] Care Team Providers Care District Wire Chief Name Role Phone Yariel Cardoza MD Primary Care Provide r Reason for Visit * Reason Comments Advice Appointment GI/IKER/Arturo Encounter Details Date Type Department Care Team Description 08/13/2019 Telephone Internal Medicine [address] [place] [address] Yariel Cardoza MD [address] [place] [address] [place] [address] Advice; Appointment (CATHY/IKER/Arturo ) [...] 08/14/19 11:40 am Appt with SOLEDAD Bishop, [facility], [facility]. Pt aware. Referral and records faxed to [phone]. * Telephone Encounter - Irena Walton OSA [...] Home Haley Davidson RDN [address] [place] [address] [phone] 08/18/2019 Office Visit Internal Medicine Bettye Valenzuela PA-C [address] [place] [address] [place] [address] [phone] 09/01/2019 Office Visit Internal Medicine Bettye Valenzuela PA-C [address] [place] [address] [place] [address] [phone] 09/10/2019 Home Visit [facility] Corrina Layne RN [address] [place] [address] [phone] Health Maintenance Due Date Last Done Comments [...] Documents on File Type Date Recorded Patient Information Technology Coordinator Expl 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
--- OUTSIDE RECORDS SUMMARY | 2023-06-07 08:17 | External Medical Summary | Summary of Care ---
Author Name Unknown Organization [place] [address] Care Team Providers Care Computer Systems Engineer Name Role Phone Yariel Cardoza MD Primary Care Provide r Encounter Details Date Type Department Care Team Description 08/09/2019 Scan Encounter Unspecified Department <No scans attached> [...] 0.4 mg by mouth daily. Per [facility] ER 0 06/09/2019 Active ondansetron (ZOFRAN) 4 MG Tablet Take 4 mg by mouth every 6 hours as needed for Nausea. Per [facility] ER 0 06/09/2019 Active Sennosides (SENNA) [...] [facility]aley Davidson RDN [address] [facility] [place] [address] [phone] 08/18/2019 Office Visit Internal Medicine Bettye Valenzuela PA-C [address] [place] [address] [place] [address] [phone] 09/01/2019 Office Visit Internal Medicine Bettye Valenzuela PA-C [address] [place] [address] [place] [address] [phone] 09/10/2019 Home Visit [facility] Corrina Layne, SELENE [address] [facility] [place] [address] [phone] Health Maintenance Due Date Last Done Comments [...] Documents on File Type Date Recorded Patient Product Design Manager Expl 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
--- OUTSIDE RECORDS SUMMARY | 2023-06-07 08:17 | External Medical Summary | Summary of Care ---
Author Name Unknown Organization [place] [address] Care Team Providers Care Learning Officer Name Role Phone Yariel Cardoza MD Primary Care Provide r Reason for Referral * Evaluate & Treat - Unlimited Visits (Within 10 days (routine)) Status Reason Specialty Diagnoses / Procedures Referred By Contact Referred To Contact Authorized Specialty Services Required Gastroenterology Diagnoses Colitis Bettye Valenzuela PA-C [address] [place] [address] [place] [address] Reason for Visit * Reason Comments Test Results Encounter Details Date Type Department Care Team Description 08/12/2019 Telephone Internal Medicine [address] [place] [address] Bettye Valenzuela PA-C [address] [place] [address] [place] [address] [phone] Test Results Allergies Active Allergy Reactions Severity [...] encounter Miscellaneous Notes * Telephone Encounter - Harmony Sarkar LPN - 08/12/2019 4:51 PM EST Patient aware and receptive to instructions. * Telephone Encounter - Bettye Valenzuela PA-C - 08/12/2019 3:10 PM EST Please call pt - abd CT results negative for diverticulitis, does not need antibiotic treatment right now; it did show moderate colitis, would like to check stool cultures and test for C. Diff, josedone, they will need to obtain stool kit from lab; referral to GI placed documented in this encounter Plan of Treatment Upcoming Encounters Date Type Specialty Care Team Description 08/14/2019 [facility] Visit [facility] Haley Davidson RDN [address] [place] [address] [phone] 08/18/2019 Office Visit Internal Medicine Bettye Valenzuela PA-C [address] [place] [address] [place] [address] [phone] 09/01/2019 Office Visit Internal Medicine Bettye Valenzuela PA-C [address] [place] [address] [place] [address] [phone] 09/10/2019 Home Visit [facility] Corrina Layne RN [address] [place] [address] [phone] Scheduled Orders Name Type Priority Associated Diagnoses Orde r Schedule C DIFFICILE/EPI, PCR Lab Routine Colitis Expected: 08/12/2019 (Approximate), Expires: 08/11/2020 GASTROINTESTINAL PATHOGEN PANEL, STOOL Lab Routine Colitis Expected: 08/12/2019 (Approximate), Expires: 08/11/2020 Scheduled Referrals Name Type Priority Associated Diagnoses Order Schedule GASTROENTEROLOGY REFERRAL OP Referral Within 10 days (routine) Colitis Ordered: 08/12/2019 Health Maintenance Due Date Last Done Comments [...] as of this encounter Visit Diagnoses Diagnosis Colitis- Primary Other and unspecified noninfectious gastroenteritis and colitis documented in this encounter Advance Directives Documents on File Type Date Recorded 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
--- OUTSIDE RECORDS SUMMARY | 2023-06-07 08:17 | External Medical Summary | Summary of Care ---
Author Name Unknown Organization [place] [address] Care Team Providers Care Realtime Court Reporter Name Role Phone Yariel Cardoza MD Primary Care Provide r Reason for Visit * Reason Comments Emergency Department Follow-Up Encounter Details Date Type Department Care Team Description 08/10/2019 Telephone Internal Medicine [address] [place] [address] Yariel Cardoza MD [address] [place] [address] [place] [address] Emergency Department Follow-Up Allergies Active Allergy Reactions Severity Noted Date Comments Adhesive Tape 06/29/2003 Sensitive to Naproxen Hives 05/28/2015 Ivp Dye Hives 08/20/2000 Latex Other (Please comment) 01/05/2015 Contact rash Ibuprofen Rash 01/05/2015 documented as of this encounter (statuses as of 08/10/2019) Medications Medication Sig Dispensed Refills Start Date [...] Per [facility] 0 06/09/2019 Active docusate sodium (COLACE) 100 MG Capsule Take 100 mg by mouth 2 times a day. 0 Active Sennosides (SENNA) 8.6 MG CAPS Take [...] as of this encounter (statuses as of 08/10/2019) Active Problems Problem Noted Date Moderate episode [...] as of this encounter (statuses as of 08/10/2019) Resolved Problems Problem Noted Date Resolved Date [...] as of this encounter (statuses as of 08/10/2019) Immunizations Name Administration Dates Next Due Pneumococcal [...] Telephone Encounter - Bia Beltre LPN - 08/10/2019 9:34 AM EST Emergency Department Follow Up: When was patient seen: 08/09 [address] ED: [facility] What were they seen for: diarrhea and vomiting, low grade fever What testing did they have done: cxr, lab work and Ultrasound What did ED think was wrong (dx): viral Any new medications prescribed: abx How is patient feeling today: "I'm miserable" Patient concerns today: f/u Scheduled appt. * Telephone Encounter - Paulette Sandy OSA - 08/10/2019 9:33 AM EST Reason for patient's call: [facility] ER follow up Diarrhea and vomiting Caller was transferred to Bia at the nurse line. documented in this encounter Plan of Treatment Upcoming Encounters Date Type Specialty Care Team Description 08/11/2019 Office Visit Internal Medicine Bettye Valenzuela PA-C [address] [place] [address] [place] [address] [phone] 08/14/2019 Home Visit [facility] Haley Davidson RDN [address] [facility] [place] [address] [phone] 09/01/2019 Office Visit Internal Medicine Bettye Valenzuela PA-C [address] [place] [address] [place] [address] [phone] 09/10/2019 Home Visit [facility] Corrina Layne RN [address] [facility] [place] [address] [phone] Health Maintenance Due Date Last Done Comments [...] Documents on File Type Date Recorded Patient Log Carrier 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
--- OUTSIDE RECORDS SUMMARY | 2023-06-07 08:17 | External Medical Summary | Summary of Care ---
Author Name Unknown Organization [place] [address] Care Team Providers Care Barber Stylist Name Role Phone Yariel Cardoza MD Primary Care Provide r Encounter Details Date Type Department Care Team Description 06/09/2019 Result Scan Unspecified Department <No scans attached> [...] FOR DIZZINESS/VERTIGO 10 Tab 0 06/05/2019 Active documented as of this encounter (statuses [...] Specialty Care Team Description 08/14/2019 Home Visit [facility] Haley Davidson RDN [address] [facility] [place] [address] [phone] 08/18/2019 Office Visit Internal Medicine Bettye Valenzuela PA-C [address] [place] [address] [place] [address] [phone] 09/01/2019 Office Visit Internal Medicine Bettye Valenzuela PA-C [address] [place] [address] [place] [address] [phone] 09/10/2019 Home Visit [facility] Corrina Layne, RN [address] [facility] [place] [address] [phone] Health Maintenance Due Date Last Done Comments [...] Date/Time Associated Diagnosis Comments RADIOLOGY SCANNED RESULT 06/09/2019 documented in this encounter Results * RADIOLOGY SCANNED RESULT (06/09/2019) Specimen Narrative Performed At documented in this encounter Advance Directives Documents on File Type Date Recorded Patient Translator Expl 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
--- OUTSIDE RECORDS SUMMARY | 2023-06-07 08:18 | External Medical Summary | Summary of Care ---
Author Name Unknown Organization [place] [address] Care Team Providers Care Computer Repair Technician Name Role Phone Yariel Cardoza MD Primary Care Provide r Reason for Visit * Reason Comments [facility]: Maintenance Encounter Details Date Type Department Care Team Description 07/17/2019 Home Visit [facility] [address] [facility] [place] [address] Corrina Layne RN 132 [facility] [place] [address] [phone] COPD, severe (HCC)*; Irritable bowel syndrome with both constipation and diarrhea; HTN, goal below 140/90 Allergies Active Allergy Reactions Severity Noted Date Comments Adhesive Tape 06/29/2003 Sensitive to Naproxen Hives 05/28/2015 Ivp Dye Hives 08/20/2000 Latex Other (Please comment) 01/05/2015 Contact rash Ibuprofen Rash 01/05/2015 documented as of this encounter (statuses as of 07/17/2019) Medications Medication Sig Dispensed Refills Start Date [...] daily. 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 60 Cap 5 07/17/2018 Active Dextromethorphan- guaiFENesin (CORICIDIN HBP CONGESTION/COUGH) 10-200 MG CAPS Take by mouth. Every 4-6 hours as needed for cough 0 Active hydrochlorothiazi de (HYDRODIURIL) 25 MG Tablet TAKE 1 TABLET BY MOUTH EVERY DAY 90 Tab 1 01/16/2019 Active KLOR-CON 10 10 MEQ TBCR TAKE 1 TABLET BY MOUTH EVERY DAY 90 Tab 1 02/23/2019 Active dicyclomine (BENTYL) 10 MG CapsuleIndication s:Irritable bowel syndrome with both constipation and diarrhea Take 1 Cap by mouth 4 times a day as needed (abdominal pain, cramping). for abdominal pain 120 Cap 5 03/06/2019 Active albuterol-ipratro pium (DUONEB) 2.5-0.5 MG/3ML nebulizer [...] [facility] ER 0 06/09/2019 Active docusate sodium (COLACE) [...] mouth daily. 30 Tab 5 07/10/2019 Active HYDROcodone-aceta minophen 5-325 mg per tab 5-325 MG per tablet 0 07/14/2019 Active Urea 20 % CREA Apply topically to affected area. Apply to feet 0 Active oxyCODONE-acetami nophen 5-325 mg per tab (PERCOCET) 5-325 MG per tablet Take 1 Tab by mouth every 6 hours as needed for Pain. Per [facility] ER 0 06/09/2019 07/17/20 19 Discontinued ondansetron ODT (ZOFRAN) 4 MG TBDP 4 mg. 0 05/04/2019 07/17/20 19 Discontinued documented as of this encounter (statuses as of 07/17/2019) Active Problems Problem Noted Date Moderate episode [...] as of this encounter (statuses as of 07/17/2019) Resolved Problems Problem Noted Date Resolved Date [...] as of this encounter (statuses as of 07/17/2019) Immunizations Name Administration Dates Next Due Pneumococcal [...] Reading Time Taken Comments Blood Pressure 130/80 07/17/2019 11:25 AM EDT Pulse 64 07/17/2019 11:25 AM EDT Temperature 36.2 C (97.2 F) 07/17/2019 11:25 AM E DT Respiratory Rate 16 07/17/2019 11:25 AM EDT Oxygen Saturation 97% 07/17/2019 11:25 AM EDT RA Inhaled Oxygen Concentration - - Weight 90.7 kg (200 lb) 07/17/2019 11:25 AM EDT Height - - Body Mass Index 37.79 06/19/2019 10:45 AM EDT documented in this encounter Progress Notes * Corrina Layne RN - 07/17/2019 11:17 AM EDT [facility] Electronics Test Engineer follow up Date: 07/17/2019 09:30 am Name: Jayla Hayes : 1945 Current Concerns: Pt seen for follow up related to COPD, HTN, IBS, renal colic Cystoscopy with ureteral stenting done earlier this week. Finished cipro that she was given post op. Was given RX for pain med, but not taking. Is filled and in the home. Updated med list. Patient feels good post procedure. Has some mild suprapubic tenderness, but over all pain related to kidney stone resolved. Denies hematuria. Is voiding without difficulty. States she will follow up 07/22/[address] Manzo. Per patient, urologist wants to do "bladder tack" for incontinence. Drinking adequate fluids per patient. Patient was to see Dr Cardoza on 06/19/19 at which time she was started on amitriptyline for IBS symptoms. Last visit amitriptyline was increased while sertraline was decreased. Amitriptyline helping IBS symptoms. Has all COPD medications. No respiratory sx's at this time. Had flu shot last week . Problems/Symptoms: Review of Systems Constitutional: Negative for [...] Hematological: Negative. Psychiatric/Behavioral: Negative. Physical Exam: BP 130/80 | Pulse 64 | Temp (Src) 97.2 (Tympanic) | Resp 16 | Wt 200 lbs (90.719kg) | BMI 37.79 kg/m | BSA 1.98 m | SaO2 97[RA[% Pain 0 Physical Exam Constitutional: She is [...] no distension. Musculoskeletal: Normal range of motion. She exhibits no edema. Neurological: She is alert and oriented [...] be right for you. Treatment/Plan: Continue with increasing fluid intake at least 64 oz daily. Follow dietary recommendations made by RD. Frequent ambulation. Monitor for decreased urinary output, fever, increased pain, hematuria and report. Monitor for COPD flare with start of cold/flu/pneumonia season. RNCM will follow up on 3 weeks or sooner if needed. Treatment(s) Given: Evaluation Patient's 'Red Flags': 1. Increased abdominal pain 2. Decreased urinary output 3. Fever, n/v 4. Sob, cough , wheezing not relieved with inhaler/nebs Patient Needs to Remember: Call [facility] with any new/worsening health concerns or problems. Referrals Needed: None at this time. LYN and ELIANA active with patient. Follow Up: Patient encouraged to call the intake phone number for all urgent but not emergent issues. Scheduled to follow up with patient in 3 weeks. Corrina Layne RN 07/17/2019 documented in this encounter Plan of Treatment Upcoming Encounters Date Type Specialty Care Team Description 08/07/2019 Home Visit [facility] Corrina Layne RN [address] [place] [address] [phone] 08/14/2019 Home Visit [facility] Haley Davidson RDN [address] [place] [address] [phone] 09/01/2019 Office Visit Internal Medicine Bettye Valenzuela PA-C [address] [place] [address] [place] [address] [phone] Health Maintenance Due Date Last Done Comments *ADVANCE DIRECTIVE NOT ON FILE 12/23/2015 *NEPHROLOGY REFERRAL DUE TO RESISTANT HTN 06/21/2019 COLONOSCOPY-EVERY 3 YRS AGES 18-100 03/26/2021 03/26/2018, 03/08/2015 DIABETES SCREEN EVERY 3 YRS-AGE 45 AND ABOVE 05/12/2022 05/12/2019, 02/28/2019, 07/28/2018, Additional history exists DXA-SCREENING EVERY 7 YRS-USE SMARTSET# 3348 TO ORDER 08/17/2022 08/17/2015 DTaP,Tdap,and Td Vaccines (2 - Td) 04/19/2028 04/19/2018, 05/03/2004 Pneumococcal Vaccine: 65+ Years Completed 03/28/2017, 09/21/2015 Influenza Vaccine (FLU shot) Completed 01/2019, 07/28/2018, 07/28/2018, Additional history exists MENINGOCOCCAL (MENACTRA) Aged Out No longer eligible based on patient's age to complete this topic documented as of this encounter Implants Not on filedocumented as of this encounter Visit Diagnoses Diagnosis COPD, severe (HCC)- Primary Chronic airway obstruction, not elsewhere classified Irritable bowel syndrome with both constipation and diarrhea HTN, goal below 140/90 Unspecified essential hypertension documented in this encounter Advance Directives Documents on File Type Date Recorded Patient Clinical Biostatistician Expl 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
--- OUTSIDE RECORDS SUMMARY | 2023-06-07 08:18 | External Medical Summary | Summary of Care ---
Author Name Unknown Organization [place] [address] Care Team Providers Care Networks Computer Consultant Name Role Phone Yariel Cardoza MD Primary Care Provide r Reason for Visit * Reason Comments [facility]: Maintenance Encounter Details Date Type Department Care Team Description 07/10/2019 Home Visit [facility] 132 [facility] [place] [address] Corrina Layne RN 132 [facility] [place] [address] [phone] Allergies Active Allergy Reactions Severity Noted Date Comments Adhesive Tape 06/29/2003 Sensitive to Naproxen Hives 05/28/2015 Ivp Dye Hives 08/20/2000 Latex Other (Please comment) 01/05/2015 Contact rash Ibuprofen Rash 01/05/2015 documented as of this encounter (statuses as of 07/10/2019) Medications Medication Sig Dispensed Refills Start Date [...] hours as needed for cough 0 Active hydrochlorothiazide (HYDRODIURIL) 25 MG Tablet TAKE 1 TABLET [...] nostril daily. 1 Inhaler 5 05/12/2019 Active sertraline (ZOLOFT) 50 MG Tablet Take 1 Tab by mouth daily. 30 Tab 5 05/15/2019 Active amLODIPine (NORVASC) 2.5 MG TabletIndications:H TN, [...] 2,000 Units by mouth daily. 0 Active oxyCODONE-acetamino phen 5-325 mg per tab (PERCOCET) 5-325 MG per tablet Take 1 Tab by mouth every 6 hours as needed for Pain. Per [facility] ER 0 06/09/2019 Active tamsulosin (FLOMAX) 0.4 MG Capsule Take 0.4 mg by mouth daily. Per [facility] ER 0 06/09/2019 Active ondansetron (ZOFRAN) 4 MG Tablet Take 4 mg by mouth every 6 hours as needed for Nausea. Per [facility] ER 0 06/09/2019 Active docusate sodium (COLACE) 100 MG Capsule Take 100 mg by mouth 2 times a day. 0 Active Sennosides (SENNA) 8.6 MG CAPS Take 1 Cap by mouth as needed for Constipation (1 cap up to two times daily for constipation). 0 06/12/2019 Active amitriptyline (ELAVIL) 10 MG TabletIndications:I rritable bowel syndrome with both constipation and diarrhea,Moderate episode of recurrent major depressive disorder (HCC) Take 1 Tab by mouth at bedtime. 30 Tab 5 06/19/2019 Active documented as of this encounter (statuses as of 07/10/2019) Active Problems Problem Noted Date Moderate episode [...] as of this encounter (statuses as of 07/10/2019) Resolved Problems Problem Noted Date Resolved Date [...] as of this encounter (statuses as of 07/10/2019) Immunizations Name Administration Dates Next Due Pneumococcal [...] Sign Reading Time Taken Comments Blood Pressure 144/80 07/10/2019 9:32 AM EDT Pulse 60 07/10/2019 9:32 AM EDT Temperature 36.7 C (98.1 F) 07/10/2019 9:32 AM ED T Respiratory Rate 18 07/10/2019 9:32 AM EDT Oxygen Saturation 94% 07/10/2019 9:32 AM EDT Inhaled Oxygen Concentration - - Weight - - Height - - Body Mass Index - - documented in this encounter Progress Notes * Corrina Layne RN - 07/10/2019 10:53 AM EDT [facility] Dedicated Truck Driver follow up Date: 07/10/2019 09:30 am Name: Jayla Hayes : 1945 Current Concerns: Pt seen for follow up related to COPD, HTN, IBS, renal colic . Patient was to her follow up with [facility] urology on 06/30/19. Pt is scheduled for procedure nextweek on 07/14/19 at [facility] for the following: cystoscopy, ureteroscopy, laser lithotripsy with stent placement. Pt continues to have problems with urinary incontinence and per Dr Hauser note, will be evaluated at that time for a pessary to help with incontinence issues. No sx's of infection or any difficulty voiding at this time. Is not straining urine any longer and was not able to catch stone when she was. Patient was to see Dr Cardoza on 06/19/19 at which time she was started on amitriptyline for IBS symptoms. Patient notes improvement in abdominal pain and IBS symptoms. Would like have med increased asdiscussed at her appointment as being a possibility if she saw improvement. Will send message to Lars with this request. Patients lungs are clear. She has all of her medications in her home, but notes that she is now in the "donut hole" so her Anoro will go from $40 to $60. LYN has been actively working with Dr Wilkinson on this. Will follow up with LYN. COPD symptoms are stable at this time. Pt going later today for flu shot with husbands appointment. Pt has not been self monitoring blood pressures due to difficulty getting accurate readings with automatic cuff. Will ask daughter to assist and monitor bp and record readings for RNCM review next visit. Systolic has been running in 140s with recent visits. Will monitor. Education on HTN provided. Problems/Symptoms: Review of Systems Constitutional: Negative for [...] Hematological: Negative. Psychiatric/Behavioral: Negative. Physical Exam: BP 144/80 | Pulse 60 | Temp (Src) 98.1 (Tympanic) | Resp 18 | SaO2 94% Pain 0 Physical Exam Constitutional: She is [...] extra vigilant with start of flu/pneumonia season. Treatment/Plan: Continue with increasing fluid intake at least 64 oz daily. Follow dietary recommendations made by RD. Frequent ambulation. Monitor for increased abdominal pain, n/v and report. Monitor for decreased urinary output, fever, increased pain, hematuria and report. Monitor for COPD flare with start of cold/flu/pneumonia season. Scheduled procedure 07/14/19 at [facility]: cystoscopy, ureteroscopy, laser lithotripsy with stent placement. Evaluation for pessary. RNCM will follow up post procedure on 07/17/19 Treatment(s) Given: Evaluation Patient's 'Red Flags': 1. Increased abdominal pain 2. Decreased urinary output 3. Fever, n/v 4. Sob, cough , wheezing not relieved with inhaler/nebs Patient Needs to Remember: Call [facility] with any new/worsening health concerns or problems. Referrals Needed: Will follow up with [facility] regarding anoro application. Follow Up: Patient encouraged to call the intake phone number for all urgent but not emergent issues. Scheduled to follow up with patient in 1week (10/11/19) post procedure. Corrina Layne RN 07/10/2019 documented in this encounter Plan of Treatment Upcoming Encounters Date Type Specialty Care Team Description 07/10/2019 Immunization/Injecti o n [facility] [place] [address] [place] [address] [phone] 07/17/2019 Home Visit [facility] Corrina Layne RN [address] [facility] [place] [address] [phone] 08/14/2019 Home Visit [facility] Haley Davidson RDN [address] [facility] [place] [address] [phone] 09/01/2019 Office Visit Internal Medicine Bettye Valenzuela PA-C [address] [place] [address] [place] [address] [phone] Health Maintenance Due Date Last Done Comments *ADVANCE DIRECTIVE NOT ON FILE 12/23/2015 Influenza Vaccine (FLU shot) (#1) 2019 07/28/2018, 07/31/2017, 07/21/2016, Additional history exists *NEPHROLOGY REFERRAL DUE TO RESISTANT HTN 06/21/2019 COLONOSCOPY-EVERY 3 YRS AGES 18-100 03/26/2021 03/26/2018, 03/08/2015 DIABETES SCREEN EVERY 3 YRS-AGE 45 AND ABOVE 05/12/2022 05/12/2019, 02/28/2019, 07/28/2018, Additional history exists DXA-SCREENING EVERY 7 YRS-USE SMARTSET# 3348 TO ORDER 08/17/2022 08/17/2015 DTaP,Tdap,and Td Vaccines (2 - Td) 04/19/2028 04/19/2018, 05/03/2004 Pneumococcal Vaccine: 65+ Years Completed 03/28/2017, 09/21/2015 MENINGOCOCCAL (MENACTRA) Aged Out No longer eligible based on patient's age to complete this topic documented as of this encounter Implants Not on filedocumented as of this encounter Advance Directives Documents on File Type Date Recorded Patient Neurosurgeon Expl anation Advanced Directive Advanced Directive Advanced Directive Advanced Directive Advanced Directive
--- OUTSIDE RECORDS SUMMARY | 2023-06-07 08:18 | External Medical Summary | Summary of Care ---
Author Name Unknown Organization [place] [address] Care Team Providers Care Property And Supply Officer Name Role Phone Yariel Cardoza MD Primary Care Provide r Encounter Details Date Type Department Care Team Description 07/14/2019 Scan Encounter Unspecified Department <No scans attached> Allergies Active Allergy Reactions Severity Noted Date Comments Adhesive Tape 06/29/2003 Sensitive to Naproxen Hives 05/28/2015 Ivp Dye Hives 08/20/2000 Latex Other (Please comment) 01/05/2015 Contact rash Ibuprofen Rash 01/05/2015 documented as of this encounter (statuses as of 07/15/2019) Medications Medication Sig Dispensed Refills Start Date [...] 6 hours as needed for Pain. Per [facility] ER 0 06/09/2019 Active tamsulosin (FLOMAX) 0.4 MG Capsule Take 0.4 mg by mouth daily. Per [facility] ER 0 06/09/2019 Active ondansetron (ZOFRAN) 4 MG Tablet Take 4 mg by mouth every 6 hours as needed for Nausea. Per [facility] ER 0 06/09/2019 Active docusate sodium [...] mouth daily. 30 Tab 5 07/10/2019 Active documented as of this encounter (statuses as of 07/15/2019) Active Problems Problem Noted Date Moderate episode [...] as of this encounter (statuses as of 07/15/2019) Resolved Problems Problem Noted Date Resolved Date [...] as of this encounter (statuses as of 07/15/2019) Immunizations Name Administration Dates Next Due Pneumococcal [...] Encounters Date Type Specialty Care Team Description 07/17/2019 Home Visit [facility] Corrina Layne RN [address] [facility] [place] [address] [phone] 08/14/2019 Home Visit [facility] Haley Davidson RDN [address] [facility] [place] [address] [phone] 09/01/2019 Office Visit Internal Medicine Bettye Valenzuela PA-C [address] [place] [address] [place] [phone] Health Maintenance Due Date Last Done Comments [...] on File Type Date Recorded Patient Behavioral Technician Expl 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
--- OUTSIDE RECORDS SUMMARY | 2023-06-07 08:18 | External Medical Summary | Summary of Care ---
Author Name Unknown Organization [place] [address] Care Team Providers Care Environmental Officer Name Role Phone Yariel Cardoza MD Primary Care Provide r Encounter Details Date Type Department Care Team Description 07/22/2019 Scan Encounter Unspecified Department <No scans attached> Allergies Active Allergy Reactions Severity Noted Date Comments Adhesive Tape 06/29/2003 Sensitive to Naproxen Hives 05/28/2015 Ivp Dye Hives 08/20/2000 Latex Other (Please comment) 01/05/2015 Contact rash Ibuprofen Rash 01/05/2015 documented as of this encounter (statuses as of 07/23/2019) Medications Medication Sig Dispensed Refills Start Date [...] 0.4 mg by mouth daily. Per [facility] ER 0 06/09/2019 Active ondansetron (ZOFRAN) 4 MG Tablet Take 4 mg by mouth every 6 hours as needed for Nausea. Per [facility] ER 0 06/09/2019 Active docusate sodium [...] affected area. Apply to feet 0 Active documented as of this encounter (statuses as of 07/23/2019) Active Problems Problem Noted Date Moderate episode [...] as of this encounter (statuses as of 07/23/2019) Resolved Problems Problem Noted Date Resolved Date [...] as of this encounter (statuses as of 07/23/2019) Immunizations Name Administration Dates Next Due Pneumococcal [...] Specialty Care Team Description 08/07/2019 Home Visit [facility] Corrina Layne RN 132 [facility] [place] [address] [phone] 08/14/2019 Home Visit [facility] Haley Davidson RDN 132 [facility] [place] [address] [phone] 09/01/2019 Office Visit Internal Medicine Bettye Valenzuela PA-C [address] [place] [address] [place] [phone] Health Maintenance Due Date Last Done Comments [...] Documents on File Type Date Recorded Patient Drafter Directional Survey Expl 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
--- OUTSIDE RECORDS SUMMARY | 2023-06-07 08:18 | External Medical Summary | Summary of Care ---
Author Name Unknown Organization [place] [address] Care Team Providers Care Ssis Ssrs Developer Name Role Phone Yariel Cardoza MD Primary Care Provide r Reason for Visit * Reason Comments [facility]: Maintenance Encounter Details Date Type Department Care Team Description 08/07/2019 [facility] Visit [facility] [address] [facility] [place] [address] Corrina Layne RN 132 [facility] [place] [address] [phone] Allergies Active Allergy Reactions Severity Noted Date Comments Adhesive Tape 06/29/2003 Sensitive to Naproxen Hives 05/28/2015 Ivp Dye Hives 08/20/2000 Latex Other (Please comment) 01/05/2015 Contact rash Ibuprofen Rash 01/05/2015 documented as of this encounter (statuses as of 08/07/2019) Medications Medication Sig Dispensed Refills Start Date [...] Take 0.4 mg by mouth daily. Per [facility] 0 06/09/2019 Active ondansetron (ZOFRAN) 4 MG Tablet Take 4 mg by mouth every 6 hours as needed for Nausea. Per [facility] 0 06/09/2019 Active docusate sodium [...] as of this encounter (statuses as of 08/07/2019) Active Problems Problem Noted Date Moderate episode [...] as of this encounter (statuses as of 08/07/2019) Resolved Problems Problem Noted Date Resolved Date [...] as of this encounter (statuses as of 08/07/2019) Immunizations Name Administration Dates Next Due Pneumococcal [...] Sign Reading Time Taken Comments Blood Pressure 136/80 08/07/2019 10:18 AM EDT Pulse 80 08/07/2019 10:18 AM EDT Temperature 36.9 C (98.4 F) 08/07/2019 10:18 AM E DT Respiratory Rate 18 08/07/2019 10:18 AM EDT Oxygen Saturation 94% 08/07/2019 10:18 AM EDT RA Inhaled Oxygen Concentration - - Weight - - Height - - Body Mass Index - - documented in this encounter Progress Notes * Corrina Layne RN - 08/07/2019 10:19 AM EDT [facility] [employer] [facility] Assistant Visit Date: 08/07/2019 09:00 am Name: Jayla Hayes : 1945 Current Concerns: Pt seen for follow up related to COPD, HTN, IBS, renal colic Cystoscopy with ureteral stenting done earlier this month. Was to urology for follow up. Stent removed. Pt given information about pessary for prolapsed bladder and patient to return 08/13 for consultation with nurse practitioner for fitting/ evaluation for pessary. Discussed with patient general information about pessary including usual cleaning, insertion, types of pessaries. Pt states that she thinks she has had one before, but can't remember. Willing to try again if it will help incontinence. Taking amitryptyline for IBS symptoms and states that it has helped the abdominal cramping significantly and only occasionally gets some cramps with gas, but otherwise, denies pain. Also helping her to sleep better. Has all COPD medications. No respiratory sx's at this time. Follow up with Dr Soriano, pulmonology 09/08/19. Problems/Symptoms: Review of Systems Constitutional: Negative for [...] Hematological: Negative. Psychiatric/Behavioral: Negative. Physical Exam: BP 136/80 | Pulse 80 | Temp (Src) 98.4 (Tympanic) | Resp 18 | SaO2 94[RA[% [...] Home Haley Davidson RDN [address] [place] [address] [phone] 09/01/2019 Office Visit Internal Medicine Bettye Valenzuela PA-C [address] [place] [address] [place] [address] [phone] 09/10/2019 Home Visit [facility] Corrina Layne RN [address] [place] [address] [phone] Health Maintenance Due Date Last Done Comments [...] Documents on File Type Date Recorded Patient Electrician Technician 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
--- OUTSIDE RECORDS SUMMARY | 2023-06-07 08:18 | External Medical Summary | Summary of Care ---
Author Name Unknown Organization [place] [address] Care Team Providers Care Disc Jockey Name Role Phone Leanne Montaño MD Primary Care Provide r Reason for Visit * Reason Comments eRx-Medication Refill Encounter Details Date Type Department Care Team Description 08/01/2019 Refill Internal Medicine [address] [place] [id number] Leanne Montaño MD [address] [place] [address] [place] [address] Allergies Active Allergy Reactions Severity Noted Date Comments Adhesive Tape 06/29/2003 Sensitive to Naproxen Hives 05/28/2015 Ivp Dye Hives 08/20/2000 Latex Other (Please comment) 01/05/2015 Contact rash Ibuprofen Rash 01/05/2015 documented as of this encounter (statuses as of 08/03/2019) Medications Medication Sig Dispensed Refills Start Date [...] mg by mouth daily. Per [facility] ER 0 06/09/2019 Active ondansetron (ZOFRAN) 4 MG Tablet Take 4 mg by mouth every 6 hours as needed for Nausea. Per [facility] ER 0 06/09/2019 Active docusate sodium [...] EVERY DAY 90 Tab 1 08/03/2019 Active hydrochlorothiazi de (HYDRODIURIL) 25 MG Tablet TAKE 1 TABLET BY MOUTH EVERY DAY 90 Tab 1 01/16/2019 08/01/20 19 Discontinued documented as of this encounter (statuses as of 08/03/2019) Active Problems Problem Noted Date Moderate episode [...] as of this encounter (statuses as of 08/03/2019) Resolved Problems Problem Noted Date Resolved Date [...] as of this encounter (statuses as of 08/03/2019) Immunizations Name Administration Dates Next Due Pneumococcal [...] encounter Miscellaneous Notes * Telephone Encounter - Artur Carias RPh - 08/03/2019 9:13 AM EDT Signed Prescriptions: Disp Refills hydroCHLOROthiazide (HYDRODIURIL) 25 MG Ta*90 Tab 1 Sig: TAKE 1 TABLET BY MOUTH EVERY DAYAuthorizing Provider: LEANNE MONTAÑO User: ARTUR CARIAS- documented in this encounter Plan of Treatment Upcoming Encounters Date Type Specialty Care Team Description 08/07/2019 [facility] Visit [facility] Corrina Layne, RN [address] [place] [address] [phone] 08/14/2019 Home Visit [facility] Haley Davidson RDN [address] [place] [address] [phone] 09/01/2019 Office Visit Internal Medicine Bettye Valenzuela PA-C [address] [place] [address] [place] [address] [phone] Health Maintenance Due Date Last Done Comments [...] Documents on File Type Date Recorded Patient Keno Clerk Expl 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
--- OUTSIDE RECORDS SUMMARY | 2023-06-07 08:18 | External Medical Summary | Summary of Care ---
Author Name Unknown Organization [place] [address] Care Team Providers Care Customer Services Manager Name Role Phone Yariel Cardoza MD Primary Care Provide r Reason for Visit * Reason Comments Medication Administration Flu and/or Pne umo Inj Encounter Details Date Type Department Care Team Description 07/10/2019 Immunization/In jection Ancillary [address] [place] [address] [facility] [address] [place] [address] Need for prophylactic vaccination and inoculation against [...] 6 hours as needed for Pain. Per [facility] ER 0 06/09/2019 Active tamsulosin (FLOMAX) 0.4 MG Capsule Take 0.4 mg by mouth daily. Per [facility] ER 0 06/09/2019 Active ondansetron (ZOFRAN) 4 MG Tablet Take 4 mg by mouth every 6 hours as needed for Nausea. Per [facility] ER 0 06/09/2019 Active docusate sodium (COLACE) [...] Travel End documented as of this encounter Patient Instructions * Patient Instructions* Gracie Martino LPN - 07/10/2019 1:17 PM EDT ~~PATIENT INSTRUCTIONS FOR FLU SHOT~~ Possible side effects of influenza vaccine, (flu shot), are usually mild and include: 1. Soreness or redness at injection site 2. Low grade fever 3. Body aches You may use Tylenol/Acetaminophen as needed for these symptoms. LET YOUR DOCTOR KNOW IMMEDIATELY IF YOU HAVE DIFFICULTY BREATHING OR SWALLOWING, EXPERIENCE ITCHINGOF FEET OR HANDS, HAVE SWELLING OF EYES, FACE OR INSIDE OF NOSE. documented in this encounter Progress Notes * Gracie Martino LPN - 07/10/2019 1:16 PM EDT PRE - ADMINISTRATION DOCUMENTATION Are you allergic to latex? No Are you experiencing any cold symptoms or fever? No Have you had Guillain-[place] Syndrome (an illness that causes paralysis)? No Have you had the flu shot in the past? YES Have you ever had a reaction to the flu shot? No Gracie Martino LPN, 07/10/2019 1:16 PM Immunization Administration Documentation Time Out Procedure [...] Specialty Care Team Description 07/17/2019 Home Visit [facility] Corrina Layne RN [address] [place] [address] [phone] 08/14/2019 Home Visit [facility] Haley Davidson RDN [address] [place] [address] [phone] 09/01/2019 Office Visit Internal Medicine Bettye Valenzuela PA-C [address] [place] [address] [place] [address] [phone] Health Maintenance Due Date Last Done Comments [...] Documents on File Type Date Recorded Patient Accounting File Clerk Expl 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
--- OUTSIDE RECORDS SUMMARY | 2023-06-07 08:18 | External Medical Summary | Summary of Care ---
Author Name Unknown Organization [facility] Address [facility] [place] [address] Care Team Providers Care Rod Bending Machine Operator Name Role Phone Yariel Cardoza MD Primary Care Provide r Reason for Visit * Reason Comments [facility]: Maintenance Medicatio n question Encounter Details Date Type Department Care Team Description 07/10/2019 Telephone [facility] [address] [place] [address] Corrina Layne RN 132 [facility] [place] [address] [phone] [facility]: Maintenance (Medication... Allergies Active Allergy Reactions Severity Noted Date [...] 2,000 Units by mouth daily. 0 Active oxyCODONE-acetami nophen 5-325 mg per tab (PERCOCET) 5-325 MG per tablet Take 1 Tab by mouth every 6 hours as needed for Pain. Per [facility] ER 0 06/09/2019 Active tamsulosin (FLOMAX) 0.4 MG Capsule Take 0.4 mg by mouth daily. Per [facility] ER 0 06/09/2019 Active ondansetron (ZOFRAN) 4 MG Tablet Take 4 mg by mouth every 6 hours as needed for Nausea. Per [facility] ER 0 06/09/2019 Active docusate sodium (COLACE) [...] mouth daily. 30 Tab 5 07/10/2019 Active sertraline (ZOLOFT) 50 MG Tablet Take 1 Tab by mouth daily. 30 Tab 5 05/15/2019 07/10/20 19 Discontinued amitriptyline (ELAVIL) 10 MG TabletIndications :Irritable bowel syndrome with both constipation and diarrhea,Moderate episode of recurrent major depressive disorder (HCC) Take 1 Tab by mouth at bedtime. 30 Tab 5 06/19/2019 07/10/20 19 Discontinued documented as of this encounter [...] Telephone Encounter - Corrina Layne RN - 07/10/2019 11:59 AM EDT Patient contacted with the new medication instructions. Patient instructed to decrease her sertraline to 25mg daily and to increase amitriptyline to 25mg daily. Advised that new rx was sent to [facility] and not to take increased dose of amitriptyline without decreasing the sertraline as instructed. Reviewed s/sx's to monitor for and report. Patient verbalizes understanding along with [facility] 833#. * Telephone Encounter - Yariel Cardoza MD - 07/10/2019 11:36 AM EDT Let's increase amitriptyline to 25 mg. We just have to be careful with sertraline. Let reduce the sertraline to 25 mg. * Telephone Encounter - Corrina Layne RN - 07/10/2019 11:[address] Cardoza, Pt was seen by me today for GAH. Was asking if she could have her amitriptyline increased that you had started for her IBS. She notes a significant improvement in her abdominal pain, loose stools, but still has some symptoms intermittently. Would like to try an increase. Please advise. Thank you, Sandrine Layne documented in this encounter Plan of Treatment Upcoming Encounters Date Type Specialty Care Team Description 07/10/2019 Immunization/Injecti o n [facility], Flu Shot Clinic [address] [place] [address] [phone] 07/17/2019 Home Visit [facility] Corrina Layne RN [address] [place] [address] [phone] 08/14/2019 [facility] Visit [facility] [place] [address] [phone] 09/01/2019 Office Visit Internal Medicine Bettye Valenzuela PA-C [address] [place] [address] [place] [address] [phone] Health Maintenance Due Date Last Done Comments [...] on File Type Date Recorded Patient Sales Marketing Expl anation Advanced Directive Advanced Directive Advanced Directive Advanced Directive Advanced Directive
--- OUTSIDE RECORDS SUMMARY | 2023-06-07 08:18 | External Medical Summary | Summary of Care ---
Author Name Unknown Organization [place] [address] Care Team Providers Care Freight Air Brake Fitter Name Role Phone Yariel Cardoza MD Primary Care Provide r Reason for Visit * Reason Comments [facility]: Maintenance Encounter Details Date Type Department Care Team Description 07/13/2019 Scheduled Telephone [facility] 132 [facility] [place] [address] [facility] Design Intern [facility] [place] [address] [phone] Allergies Active Allergy Reactions Severity Noted Date Comments Adhesive Tape 06/29/2003 Sensitive to Naproxen Hives 05/28/2015 Ivp Dye Hives 08/20/2000 Latex Other (Please comment) 01/05/2015 Contact rash Ibuprofen Rash 01/05/2015 documented as of this encounter (statuses as of 07/13/2019) Medications Medication Sig Dispensed Refills Start Date [...] 6 hours as needed for Pain. Per [facility] ER 0 06/09/2019 Active tamsulosin (FLOMAX) 0.4 [...] as of this encounter (statuses as of 07/13/2019) Active Problems Problem Noted Date Moderate episode [...] as of this encounter (statuses as of 07/13/2019) Resolved Problems Problem Noted Date Resolved Date [...] as of this encounter (statuses as of 07/13/2019) Immunizations Name Administration Dates Next Due Pneumococcal [...] Telephone Encounter - [facility] Design Intern - 07/13/2019 2:49 PM EDT Reached out to pt with update that Dr. Soriano's office faxed in all the paperwork for her medication. Pt states she received a letter saying she was approved. She is waiting on the medications. Reminded pt to keep her regular yearly appointments with Dr. Soriano in order to continue to get prescriptions. Pt to have procedure tomorrow to remove kidney stones. documented in this encounter Plan of Treatment Upcoming Encounters Date Type Specialty Care Team Description 07/17/2019 [facility] Visit [facility] Corrina Layne RN 132 [facility] [place] [address] [phone] 08/14/2019 Home Visit [facility] Haley Davidson RDN [address] [place] [address] [phone] 09/01/2019 Office Visit Internal Medicine Bettye Valenzuela PA-C [address] [place] [address] [place] [address] [phone] Health Maintenance Due Date Last Done Comments [...] Influenza Vaccine (FLU shot) Completed 01/2019, 07/28/2018, 07/31/2017, Additional history exists MENINGOCOCCAL (MENACTRA) Aged Out No longer eligible based on patient's age to complete this topic documented as of this encounter Implants Not on filedocumented as of this encounter Advance Directives Documents on File Type Date Recorded Patient Supervisor Carding Expl 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
--- OUTSIDE RECORDS SUMMARY | 2023-06-07 08:18 | External Medical Summary | Summary of Care ---
Author Name Unknown Organization [place] [address] Care Team Providers Care Geophysics Professor Name Role Phone Yariel Cardoza MD [...] [facility] 06/09/2019 Active docusate sodium (COLACE) [...] [facility] Corrina Layne RN 132 [facility] [place] [address] [phone] 08/14/2019 Home Visit [facility] Haley Davidson RDN 132 [facility] [place] [address] [phone] 09/01/2019 Office Visit Internal Medicine Bettye Valenzulea PA-C [address] [place] [address] [place] [phone] Health Maintenance Due Date Last Done Comments [...] Documents on File Type Date Recorded Patient Clerk General Office Expl 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
--- OUTSIDE RECORDS SUMMARY | 2023-06-07 08:18 | External Medical Summary | Summary of Care ---
Author Name Unknown Organization [place] [address] Care Team Providers Care Belt Press Operator Name Role Phone Yariel Cardzoa MD Primary Care Provide r Encounter Details Date Type Department Care Team Description 07/02/2019 Scan Encounter Unspecified Department <No scans attached> Allergies Active Allergy Reactions Severity Noted Date Comments Adhesive Tape 06/29/2003 Sensitive to Naproxen Hives 05/28/2015 Ivp Dye Hives 08/20/2000 Latex Other (Please comment) 01/05/2015 Contact rash Ibuprofen Rash 01/05/2015 documented as of this encounter (statuses as of 07/03/2019) Medications Medication Sig Dispensed Refills Start Date [...] 6 hours as needed for Pain. Per [facility] ER 0 06/09/2019 Active tamsulosin (FLOMAX) 0.4 MG Capsule Take 0.4 mg by mouth daily. Per [facility] ER 0 06/09/2019 Active ondansetron (ZOFRAN) 4 MG Tablet Take 4 mg by mouth every 6 hours as needed for Nausea. Per [facility] ER 0 06/09/2019 Active docusate sodium (COLACE) [...] as of this encounter (statuses as of 07/03/2019) Active Problems Problem Noted Date Moderate episode [...] as of this encounter (statuses as of 07/03/2019) Resolved Problems Problem Noted Date Resolved Date [...] as of this encounter (statuses as of 07/03/2019) Immunizations Name Administration Dates Next Due Pneumococcal [...] Date Type Specialty Care Team Description 07/10/2019 Home Visit [facility] Corrina Layne RN 132 [facility] [place] [address] [phone] 07/10/2019 Immunization/Injecti o n [facility], Flu Shot Clinic [address] [place] [address] [phone] 08/14/2019 Home Visit [facility] Haley Davidson RDN [address] [place] [address] [phone] 09/01/2019 Office Visit Internal Medicine Bettye Valenzuela PA-C [address] [place] [address] [place] [address] [phone] Health Maintenance Due Date Last Done Comments [...] on File Type Date Recorded 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
--- OUTSIDE RECORDS SUMMARY | 2023-06-07 08:19 | External Medical Summary | Summary of Care ---
Author Name Unknown Organization [place] [address] Care Team Providers Care Diesel Mechanic Farm Name Role Phone Yariel Cardoza MD Primary Care Provide r Reason for Visit * Reason Comments [facility]: Acute Encounter Details Date Type Department Care Team Description 06/12/2019 Home Visit [facility] [address] [facility] [place] [address] Corrina Layne RN 132 [facility] [place] [address] [phone] Renal colic*; Irritable bowel syndrome with both constipation and diarrhea Allergies Active Allergy Reactions Severity Noted Date Comments Adhesive Tape 06/29/2003 Sensitive to Naproxen Hives 05/28/2015 Ivp Dye Hives 08/20/2000 Latex Other (Please comment) 01/05/2015 Contact rash Ibuprofen Rash 01/05/2015 documented as of this encounter (statuses as of 06/13/2019) Medications Medication Sig Dispensed Refills Start Date [...] 6 hours as needed for Pain. Per [facility] ER 0 06/09/2019 Active tamsulosin (FLOMAX) 0.4 MG Capsule Take 0.4 mg by mouth daily. Per [facility] ER 0 06/09/2019 Active ondansetron (ZOFRAN) 4 MG Tablet Take 4 mg by mouth every 6 hours as needed for Nausea. Per [facility] ER 0 06/09/2019 Active docusate sodium (COLACE) 100 MG Capsule Take 100 mg by mouth 2 times a day. 0 Active Sennosides (SENNA) 8.6 MG CAPS Take 1 Cap by mouth as needed for Constipation (1 cap up to two times daily for constipation). 0 06/12/2019 Active documented as of this encounter (statuses as of 06/13/2019) Active Problems Problem Noted Date HTN, goal below 140/90 08/09/2017 Pulmonary hypertension [...] as of this encounter (statuses as of 06/13/2019) Resolved Problems Problem Noted Date Resolved Date [...] as of this encounter (statuses as of 06/13/2019) Immunizations Name Administration Dates Next Due Pneumococcal [...] Sign Reading Time Taken Comments Blood Pressure 124/82 06/13/2019 8:49 AM EDT Pulse 68 06/13/2019 8:49 AM EDT Temperature 36.7 C (98.1 F) 06/13/2019 8:49 AM ED T Respiratory Rate 18 06/13/2019 8:49 AM EDT Oxygen Saturation 95% 06/13/2019 8:49 AM EDT RA Inhaled Oxygen Concentration - - Weight - - Height - - Body Mass Index - - documented in this encounter Progress Notes * Corrina Layne RN - 06/12/2019 6:53 PM EDT [facility] Case HardenerPlug Cutter Visit-constipation, kidney stones Date: 06/12/2019 Time: 5:40 PM Name: Jayla Hayes : 1945 Current Concerns: Pt seen for follow up with abdominal pain, constipation and recent ER visit for kidney stones. Pt has not yet moved bowels but is passing gas. Hypoactive bowel sounds. Going to start stool softener/laxative per mtm recommendations. Drinking warm prune juice with butter. Pt again today not drinking enough fluids. Was at spouses appointments all day. Promises RN that she will start increasing fluids. Voiding without difficulty. Continues to strain urine, but has some incontinence as well which has been an ongoing problem. Waiting for return call from urology with f/u appointment related to kidney stones. Abdominal pain decreased today. Pt's abdomen not as distended. Agrees to call [facility] with any increased abdominal pain, inability to void, fever, gross hematuria. Problems/Symptoms: Review of Systems Constitutional: Positive for appetite change (mildly decreased). Negative for activity change. HENT: Negative. Eyes: Negative. Respiratory: Negative. Cardiovascular: Negative. Gastrointestinal: Positive for abdominal distention (decreasesed from /5.), abdominal pain (decreased from 9/5) and constipation. Negative for blood in stool, diarrhea, nausea and vomiting. Endocrine: Negative. Genitourinary: Negative for decreased urine volume, difficulty urinating, dysuria, flank pain, frequency, hematuria and urgency. Skin: Negative. Allergic/Immunologic: Negative. Neurological: Negative. Hematological: Negative. Psychiatric/Behavioral: Negative. Physical Exam: BP 124/82 | Pulse 68 | Temp (Src) 98.1 (Temporal Artery) | Resp 18 | SaO2 95[RA[% Pain 4/10-left sided abdominal pain. Physical Exam Constitutional: She is oriented to [...] wheezes. She has no rales. Abdominal: Soft. She exhibits distension (mild). Bowel sounds hypoactive Musculoskeletal: Normal range of motion. She exhibits no edema. Neurological: She is alert and oriented to person, place, and time. Skin: Skin is warm and dry. Psychiatric: She has a normal mood and affect. Her behavior is normal. Judgment and thought contentnormal. Treatment/Plan: Continue with increasing fluid intake at least 64 oz daily. Warm prune juice with butter. miralax Stool softener/senna Frequent ambulation. Monitor for increased abdominal pain, n/v Monitor for decreased urinary output, fever, increased pain, hematuria. Continue to strain urine. F/u with urology and pcp Treatment(s) Given: Evaluation Patient's 'Red Flags': 1. Increased abdominal pain 2. Decreased urinary output 3. Fever, n/v Patient Needs to Remember: Call [facility] with any new/worsening health concerns or problems. Referrals Needed: Other RD- help with dietary restrictions related to htn, kidney stones, IBS Follow Up: Patient encouraged to call the intake phone number for all urgent but not emergent issues. Scheduled to follow up with patient in 1 week. Corrina Layne RN 06/12/2019 6:53 PM documented in this encounter Plan of Treatment Upcoming Encounters Date Type Specialty Care Team Description 06/16/2019 Home Visit [facility] Corrina Layne RN [address] [facility] [place] [address] 09/01/2019 Office Visit Internal Medicine Bettye Valenzuela PA-C [address] [place] [address] [place] [address] Health Maintenance Due Date Last Done Comments *ADVANCE DIRECTIVE NOT ON FILE 12/23/2015 Influenza Vaccine (FLU shot) (#1) 2019 07/28/2018, 07/31/2017, 07/21/2016, Additional history exists COLONOSCOPY-EVERY 3 YRS AGES 18-100 03/26/2021 03/26/2018, 03/08/2015 DIABETES SCREEN EVERY 3 YRS-AGE 45 AND ABOVE 05/12/2022 05/12/2019, 02/28/2019, 07/28/2018, Additional history exists DXA-SCREENING EVERY 7 YRS-USE SMARTSET# [id number] TO ORDER 08/17/2022 08/17/2015 DTaP,Tdap,and Td Vaccines (2 - Td) 04/19/2028 04/19/2018, 05/03/2004 PNEUMOCOCCAL ADULT 65 YRS AND OVER Completed 03/28/2017, 09/21/2015 MENINGOCOCCAL (MENACTRA) Aged Out No longer eligible based on patient's age to complete this topic documented as of this encounter Implants Not on filedocumented as of this encounter Visit Diagnoses Diagnosis Renal colic- Primary Irritable bowel syndrome with both constipation and diarrhea documented in this encounter Advance Directives Documents on File Type Date Recorded 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
--- OUTSIDE RECORDS SUMMARY | 2023-06-07 08:19 | External Medical Summary | Summary of Care ---
Author Name Unknown Organization [place] [address] Care Team Providers Care Medical Device Sales Representative Name Role Phone Yariel Cardoza MD Primary Care Provide r Reason for Visit * Reason Comments Emergency Department Follow-Up Encounter Details Date Type Department Care Team Description 06/19/2019 Office Visit Internal Medicine [address] [address] Yariel Cardoza MD [address] [place] [address] [facility] [place] [address] Left nephrolithiasis*; Irritable bowel syndrome with both constipation and diarrhea; COPD, severe ([facility]); Gastroesophageal reflux disease without esophagitis; HTN, goal below 140/90; Pulmonary hypertension (HCC); Moderate episode of recurrent major depressive disorder ([facility]) Allergies Active Allergy Reactions Severity Noted Date Comments Adhesive Tape 06/29/2003 Sensitive to Naproxen Hives 05/28/2015 Ivp Dye Hives 08/20/2000 Latex Other (Please comment) 01/05/2015 Contact rash Ibuprofen Rash 01/05/2015 documented as of this encounter (statuses as of 06/19/2019) Medications Medication Sig Dispensed Refills Start Date [...] 6 hours as needed for Pain. Per [facility] ER 0 06/09/2019 Active tamsulosin (FLOMAX) 0.4 MG Capsule Take 0.4 mg by mouth daily. Per [facility] ER 0 06/09/2019 Active ondansetron (ZOFRAN) 4 MG Tablet Take 4 mg by mouth every 6 hours as needed for Nausea. Per [facility] ER 0 06/09/2019 Active docusate sodium (COLACE) [...] as of this encounter (statuses as of 06/19/2019) Active Problems Problem Noted Date Moderate episode [...] as of this encounter (statuses as of 06/19/2019) Resolved Problems Problem Noted Date Resolved Date [...] as of this encounter (statuses as of 06/19/2019) Immunizations Name Administration Dates Next Due Pneumococcal [...] Reading Time Taken Comments Blood Pressure 144/80 06/19/2019 10:45 AM EDT Pulse 80 06/19/2019 10:45 AM EDT Temperature 36.5 C (97.7 F) 06/19/2019 10:45 AM E DT Respiratory Rate 14 06/19/2019 10:45 AM EDT Oxygen Saturation - - Inhaled Oxygen Concentration - - Weight 92.5 kg (204 lb) 06/19/2019 10:45 AM EDT Height 154.9 cm (5' 1") 06/19/2019 10:45 AM EDT Body Mass Index 38.55 06/19/2019 10:45 AM EDT documented in this encounter Progress Notes * Yariel Cardoza MD - 06/19/2019 11:06 AM EDT Subjective: Jayla Hayes is a 73 year old female. who presents for ED follow-up HPI: Brief Clinical History Ms. Hayes is a 73 year old woman last seen in Internal Medicine today (06-19-19). She has h/o COPD and heart failure, due for eval of Moderate episode of recurrent major depressive disorder (HCC). Was in [facility] ED 06/09/19. Woke up with severe abdominal pain that then radiated to the left flank. HadCT scan in ED showing 5 mm left obstructing stone and a 4 mm at the left renal pelvis. UA with 3+ blood but otherwise negative. Given oxycodone and discharged. Has only take one. Was not able to catch the stone but the pain has resolved. Is scheduled with Dr. Manzo 07/02/19. Already follows with him for incontinence. Had one other episode of kidney stones years ago. Has ongoing problems with constipation alternating with diarrhea. Has been taking fiber and Colace and the constipation has improved some. Occasionally gets diarrhea and the Bentyl helps some. Has had longstanding issues with the constipation and diarrhea. Has a lot of abdominal pain. Saw Dr. Lwo of GI and stool studies were negative. Was diagnosed with IBS. [facility] not [facility] to [facility] months because of her abdominal symptoms and diarrhea. Does not know when it will hit. Is really affecting her life. Has been losing her hair. Getting bald spots in the back. Gets fistfuls of hair when she foote it. Has tried Biotin and has not helped. Blood pressure has been running high still. Systolic has been around 140. Started sertraline 05/15/19 for depression by [facility]. Does feel that it is helping. Has been under a lot of stress with her ill . Used to take amitriptyline for fibromyalgia and had no pain at all. Did not have side effects from it. Is not sure why it was stopped but that was years ago at a different doctor's office. PMH: Patient Active Problem List Diagnosis Code [...] of recurrent major depressive disorder ([facility]) F33.1 Current Outpatient Medications Medication Sig Dispense Refill amitriptyline (ELAVIL) 10 MG Tablet Take 1 Tab by mouth at bedtime. 30 Tab 5 Sennosides (SENNA) 8.6 MG CAPS Take 1 Cap by mouth as needed for Constipation (1 cap up to two times daily for constipation). Cholecalciferol 1000 units Capsule Take 2,000 Units by mouth daily. docusate sodium (COLACE) 100 MG Capsule Take 100 mg by mouth 2 times a day. ondansetron (ZOFRAN) 4 MG Tablet Take 4 mg by mouth every 6 hours as needed for Nausea. Per [facility] ER tamsulosin (FLOMAX) 0.4 MG Capsule Take 0.4 mg by mouth daily. Per [facility] ER meclizine (ANTIVERT) 25 MG Tablet TAKE [...] Tab by mouth daily. 90 Tab 3 sertraline (ZOLOFT) 50 MG Tablet Take 1 Tab by mouth daily. 30 Tab 5 fluticasone (FLONASE) 50 MCG/ACT nasal spray Administer [...] BY MOUTH EVERY DAY 90 Tab 1 hydrochlorothiazide (HYDRODIURIL) 25 MG Tablet TAKE 1 [...] as needed for Itching. 222 mL 3 oxyCODONE-acetaminophen 5-325 mg per tab (PERCOCET) 5-325 MG per tablet Take 1 Tab by mouth every 6hours as needed for Pain. Per [facility] ER Dextromethorphan-guaiFENesin (CORICIDIN HBP CONGESTION/COUGH) 10-200 MG [...] chronic, stage III (GFR 30-59 ml/min) ([facility]) 10/16/2015 Kidney stone Lumbar degenerative disc disease [...] performed by Todd Kunz, DO at [facility] BIOPSY OF BREAST, OPEN 1971 benign, right, removed nipple for blocked milk glands BIOPSY OF BREAST, OPEN 1976 left, benign BREAST SURGERY PROCEDURE NEC bilateral Breast Reduction 09/20/03 BUNION CORRECTED WITH DOUBLE OSTEOTOMY 1991 right foot COLONOSCOPY, DIAGNOSTIC (RECTUM) 03/08/2015 adenomatous polyps, repeat 3 yrs/[facility] COLONOSCOPY, DIAGNOSTIC (RECTUM) 03/26/2018 adenomatous & serrated adenomatous polyps, repeat 3 yrs/[facility] EGD, FLEXIBLE, DIAGNOSTIC 01/21/2015 sm HH/[facility] EGD, FLEXIBLE, DIAGNOSTIC 07/22/2018 mild gastritis, Schatzki ring, duodenal polyp/[facility] ESOPHAGOSCOPY RIGID TRANSORAL HYPOPHARYNX ESOPHAGUS 2004 repair of Zenker's diverticulum LAPAROSCOPY; CHOLECYSTECTOMY 06/04/2016 laparoscopic cholecystectomy , mnmm [...] Status Relation Status Fa at age 55 NC, smoked Mo at age 89 unknown cause Zandra Alive Irina Son Alive Son Alive Bro (Not Specified) AUNT (Not Specified) UNCLE (Not Specified) Social History Tobacco Use Smoking status: Former Smoker Packs/day: 1.75 Years: 38.00 Pack years: 66.50 Types: Cigarettes Last attempt to quit: 10/07/1995 Years since quittin.7 Smokeless tobacco: Never Used Tobacco comment: quit in 1995 Substance Use Topics Alcohol use: No Review of Systems: General: No change in [...] problems and No sore throat Respiratory: No cough, sputum, or hemoptysis, No recent change in breathing and +severe COPD following with pulmonary Cardiac: No chest pain, No shortness of breath, No orthopnea, No paroxysmal nocturnal dyspnea, No edema, No palpitations and No syncope Gastrointestinal: +generalized abdominal pain, cramping, diarrhea alternating with constipation as above Urinary: +recent left sided nephrolithiasis as above Objective: BP 144/80 | Pulse 80 | Temp (Src) 97.7 (Tympanic) | Resp 14 | Ht 5' 1" (1.549m) | Wt 204 lbs (92.534kg) | BMI 38.55 kg/m | BSA 2 m Physical Exam: General: alert, no distress, well nourished and well developed Head: Normocephalic, No masses, lesions, tenderness or abnormalities Eye Exam: PERRLA, EOMI, Conjunctiva are pink and non-injected, sclera clear Ears: External ears normal, Canals clear, TM's Normal Oropharynx: no exudate, no erythema, lips, buccal mucosa, and tongue normal and mucous membranes are moist Neck: supple, no adenopathy, no bruits Heart: regular rate & rhythm, no murmurs and no gallops Lungs: chest symmetric with normal AP diameter, no chest deformities noted, no chest wall tenderness, lungs clear to auscultation, decreased breath sounds Abdomen: abdomen soft, normal bowel sounds, no masses or organomegaly, no rebound or guarding and +mild diffuse tenderness to palpation Extremities: no edema, no clubbing, no cyanosis ASSESSMENT/PLAN: Left nephrolithiasis (Primary)--reviewed ED notes. Was not able to catch the stone in the strainer but pain resolved. Keep follow-up as scheduled with Dr. Manzo 07/02/19. Irritable bowel syndrome with both constipation and diarrhea--worsening symptoms. Affecting her life. Saw GI and had negative stool studies. Was not scheduled a return visit. Did very well with amitriptyline for fibromyalgia and sleep in the past. Will restart at low dose to help with IBS and depression. Would recommend stopping sertraline if the amitriptyline is helpful. Will call sooner with any side effects. - amitriptyline (ELAVIL) 10 MG Tablet; Take 1 Tab by mouth at bedtime. COPD, severe (HCC)--stable. No recent flares Gastroesophageal reflux disease without esophagitis HTN, goal below 140/90--mildly elevated today but mostly controlled. Continue to monitor. Pulmonary hypertension (HCC)--stable Moderate episode of recurrent major depressive disorder (HCC)--as above. If amitriptyline is helping, could titrate dose and stop sertraline. - amitriptyline (ELAVIL) 10 MG Tablet; Take 1 Tab by mouth at bedtime. Follow Up: Return as scheduled for recheck of IBS and depression with addition of amitriptyline. Would discontinue sertraline and titrate amitriptyline if it helps her GI symptoms. Yariel Cardoza MD documented in this encounter Nursing Notes * Gracie Martino LPN - 06/19/2019 10:44 AM EDT ER follow up for kidney stones. documented in this encounter Plan of Treatment Upcoming Encounters Date Type Specialty Care Team Description 06/30/2019 Director Insurance [facility] Corrina Layne RN [address] [place] [address] [phone] 07/01/2019 Home Visit [facility] Haley Davidson RDN [address] [place] [address] [phone] 07/10/2019 Immunization/Injection [place] [place] [address] [place] [address] [phone] 09/01/2019 Office Visit Internal Medicine Bettye Valenzuela PA-C [address] [place] [address] [place] [address] [phone] Health Maintenance Due Date Last Done Comments [...] as of this encounter Visit Diagnoses Diagnosis Left nephrolithiasis- Primary Irritable bowel syndrome with both constipation and diarrhea COPD, severe (HCC) Chronic airway obstruction, not elsewhere classified Gastroesophageal reflux disease without esophagitis Esophageal reflux HTN, goal below 140/90 Unspecified essential hypertension Pulmonary hypertension (HCC) Other chronic pulmonary heart diseases Moderate episode of recurrent major depressive disorder (HCC) documented in this encounter Advance Directives Documents on File Type Date Recorded Patient Hospital Unit Coordinator Expl anation Advanced Directive Advanced Directive Advanced Directive Advanced Directive Advanced Directive
--- OUTSIDE RECORDS SUMMARY | 2023-06-07 08:19 | External Medical Summary | Summary of Care ---
Author Name Unknown Organization [place] [address] Care Team Providers Care Well Tester Name Role Phone Yariel Cardoza MD Primary Care Provide r Reason for Visit * Reason Comments [facility]: Maintenance Encounter Details Date Type Department Care Team Description 06/05/2019 Telephone [facility] [address] [place] [address] [facility], Nurse [address] [place] [address] [phone] [facility]: Maintenance Allergies Active Allergy [...] Miscellaneous Notes * Telephone Encounter - Zhane Walters RN - 06/05/2019 8:07 AM EDT Patient is asking for a return call from Crystal Crowley [facility] because the patient crossed out something on the 5 wishes she did not mean too. TT to [place] requesting to call the patient. documented in this encounter Plan of Treatment Upcoming Encounters Date Type Specialty Care Team Description 06/30/2019 Motor Scooter Mechanic [facility] Corrina Layne RN 132 [facility] [place] [address] [phone] 07/01/2019 Home Visit [facility] Haley Davidson RDN 132 [facility] [place] [address] [phone] 07/10/2019 Immunization/Injection [facility] [place] [address] [place] [address] [phone] 09/01/2019 Office Visit Internal Medicine Bettye Valenzuela PA-C [address] [place] [address] [place] [address] [phone] Health Maintenance Due Date Last Done Comments [...] Documents on File Type Date Recorded Patient Environmental Permitting Specialist Expl anation Advanced Directive Advanced Directive Advanced Directive Advanced Directive Advanced Directive
--- OUTSIDE RECORDS SUMMARY | 2023-06-07 08:19 | External Medical Summary | Summary of Care ---
Author Name Unknown Organization [place] [address] Care Team Providers Care Licensed Certified Orthotist Name Role Phone Yariel Cardoza MD Primary Care Provide r Reason for Visit * Reason Comments [facility]: Maintenance Encounter Details Date Type Department Care Team Description 06/26/2019 Scheduled Telephone [facility] 132 [facility] [place] [address] [facility] Processor Inspector [facility] [address] [phone] Allergies Active Allergy Reactions Severity Noted Date Comments Adhesive Tape 06/29/2003 Sensitive to Naproxen Hives 05/28/2015 Ivp Dye Hives 08/20/2000 Latex Other (Please comment) 01/05/2015 Contact rash Ibuprofen Rash 01/05/2015 documented as of this encounter (statuses as of 06/26/2019) Medications Medication Sig Dispensed Refills Start Date [...] hours as needed for Pain. Per [facility] ER 0 06/09/2019 Active tamsulosin (FLOMAX) 0.4 MG Capsule Take 0.4 mg by mouth daily. Per [facility] ER 0 06/09/2019 Active ondansetron (ZOFRAN) 4 MG Tablet Take 4 mg by mouth every 6 hours as needed for Nausea. Per [facility] ER 0 06/09/2019 Active docusate sodium [...] as of this encounter (statuses as of 06/26/2019) Active Problems Problem Noted Date Moderate episode [...] as of this encounter (statuses as of 06/26/2019) Resolved Problems Problem Noted Date Resolved Date [...] as of this encounter (statuses as of 06/26/2019) Immunizations Name Administration Dates Next Due Pneumococcal [...] Telephone Encounter - Crystal Crowley Community Health Processor Inspector - 06/26/2019 12:19 PM EDT Returned pt call. Pt asking about applications for anoro and hospital bills. Reminded her that the applications for hospital bills take time. [facility] is 6-8 weeks behind. Application for Anoro is at Dr. Soriano's office for the rx and they will fax to the research scholar. Pt denied medical assistance due to income. Reinforced plan of care. Patient verbalized understanding. Explained/reinforced role of Community Health Processor Inspector. Encouraged to call with any issues or concerns. Gave [phone] number and contact information. documented in this encounter Plan of Treatment Upcoming Encounters Date Type Specialty Care Team Description 06/30/2019 Scheduled Telephone [facility] Corrina Layne RN [address] [place] [address] [phone] 07/01/2019 Home Visit [facility] Lety Haleymaria victoria Samaniego, RDN [address] [place] [address] [phone] 07/10/2019 Immunization/Injection [place] [place] [address] [place] [address] [phone] 09/01/2019 Office Visit Internal Medicine Bettye Valenzuela PA-C [address] [place] [address] [place] [address] [phone] Health Maintenance Due Date Last Done Comments [...] Documents on File Type Date Recorded Patient Game Programmer Expl anation Advanced Directive Advanced Directive Advanced Directive Advanced Directive Advanced Directive
--- OUTSIDE RECORDS SUMMARY | 2023-06-07 08:19 | External Medical Summary | Summary of Care ---
Author Name Unknown Organization [place] [address] Care Team Providers Care Fiberglass Pipe Covering Supervisor Name Role Phone Yariel Cardoza MD Primary Care Provide r Reason for Visit * Reason Comments [facility]: Maintenance Encounter Details Date Type Department Care Team Description 06/16/2019 [facility] Visit [facility] [address] [facility] [place] [address] Corrina Layne RN [address] [facility] [place] [address] [phone] Allergies Active Allergy Reactions Severity Noted Date Comments Adhesive Tape 06/29/2003 Sensitive to Naproxen Hives 05/28/2015 Ivp Dye Hives 08/20/2000 Latex Other (Please comment) 01/05/2015 Contact rash Ibuprofen Rash 01/05/2015 documented as of this encounter (statuses as of 06/16/2019) Medications Medication Sig Dispensed Refills Start Date [...] 6 hours as needed for Pain. Per [facility] ER 0 06/09/2019 Active tamsulosin (FLOMAX) 0.4 MG Capsule Take 0.4 mg by mouth daily. Per [facility] ER 0 06/09/2019 Active ondansetron (ZOFRAN) 4 MG Tablet Take 4 mg by mouth every 6 hours as needed for Nausea. Per [facility] ER 0 06/09/2019 Active docusate sodium (COLACE) 100 MG Capsule Take 100 mg by mouth 2 times a day. 0 Active Sennosides (SENNA) 8.6 MG CAPS Take 1 Cap by mouth as needed for Constipation (1 cap up to two times daily for constipation). 0 06/12/2019 Active documented as of this encounter (statuses as of 06/16/2019) Active Problems Problem Noted Date HTN, goal [...] as of this encounter (statuses as of 06/16/2019) Resolved Problems Problem Noted Date Resolved Date [...] as of this encounter (statuses as of 06/16/2019) Immunizations Name Administration Dates Next Due Pneumococcal [...] Sign Reading Time Taken Comments Blood Pressure 142/80 06/16/2019 5:42 PM EDT Pulse 68 06/16/2019 5:42 PM EDT Temperature 36.8 C (98.3 F) 06/16/2019 5:42 PM ED T Respiratory Rate 18 06/16/2019 5:42 PM EDT Oxygen Saturation 93% 06/16/2019 5:42 PM EDT RA Inhaled Oxygen Concentration - - Weight - - Height - - Body Mass Index - - documented in this encounter Progress Notes * Corrina Layne RN - 06/16/2019 9:29 AM EDT [facility] Tool Coordinator follow up Date: 06/16/2019 Name: Jayla Hayes : 1945 Current Concerns: Pt seen for follow up with abdominal pain, constipation and recent ER visit for kidney stones. Bowels moving now. Pt to cut back on senna to abdominal cramping. Plans to introduce fibersure slowly. Voiding without difficulty. Compliant with increasing fluids. Passing "normal amount" of urine per patient. Continues to strain, but has not passed any stones yet to her knowledge although admits to passing urine several times when having a bm and was not able to strain. Abdominal pain resolved. Tolerating diet. Feels much better today. Problems/Symptoms: Review of Systems Constitutional: Negative for activity change and appetite change. HENT: Negative. Eyes: Negative. Respiratory: Negative for cough (productive clear to light yellow) and wheezing. Cardiovascular: Negative. Gastrointestinal: Negative for abdominal distention (resolved.), constipation (intermittent), diarrhea, nausea and vomiting. Endocrine: Negative. Genitourinary: Negative for decreased urine volume, difficulty urinating, dysuria, flank pain, frequency, hematuria and urgency. Musculoskeletal: Negative. Skin: Negative. Allergic/Immunologic: Negative. Neurological: Negative. Hematological: Negative. Psychiatric/Behavioral: Negative. Physical Exam: BP 142/80 | Pulse 68 | Temp (Src) 98.3 (Tympanic) | Resp 18 | SaO2 93[RA[% Pain 4/10-left sided abdominal pain. Physical Exam [...] fluid intake at least 64 oz daily. miralax Stool softener/senna. Plans to decrease senna to once daily Adding fibersure slowly. Frequent ambulation. Monitor for increased abdominal pain, n/v Monitor for decreased urinary output, fever, increased pain, hematuria. Continue to strain urine. F/u with urology and pcp-appointments scheduled. Treatment(s) Given: Evaluation Patient's 'Red Flags': 1. Increased abdominal pain 2. Decreased urinary output 3. Fever, n/v Patient Needs to Remember: Call [facility] with any new/worsening health concerns or problems. Referrals Needed: None today. RD pending. Follow Up: Patient encouraged to call the intake phone number for all urgent but not emergent issues. Scheduled to follow up with patient in 2 weeks. Corrina Layne RN 06/16/2019 documented in this encounter Plan of Treatment Upcoming Encounters Date Type Specialty Care Team Description 06/19/2019 Office Visit Internal Medicine Yariel Cardoza MD [address] [place] [address] [place] [address] [phone] 06/30/2019 Tool Coordinator [facility] Corrina Layne RN [address] 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
--- OUTSIDE RECORDS SUMMARY | 2023-06-07 08:19 | External Medical Summary | Summary of Care ---
Author Name Unknown Organization [place] [address] Care Team Providers Care Alternative Energy Technician Name Role Phone Yariel Cardoza MD Primary Care Provide r Reason for Visit * Reason Comments Dosage Adjustment Via Phone (anticoag Cl inic) Chronic Disease Management Encounter Details Date Type Department Care Team Description 06/16/2019 Pharmacy [facility] [address] [facility] [place] [address] [facility] [address] [facility] [address] [phone] Dyslipidemia, goal LDL below 100* Allergies Active Allergy Reactions Severity Noted Date Comments Adhesive Tape 06/29/2003 Sensitive to Naproxen Hives 05/28/2015 Ivp Dye Hives 08/20/2000 Latex Other (Please comment) 01/05/2015 Contact rash Ibuprofen Rash 01/05/2015 documented as of this encounter (statuses as of 06/17/2019) Medications Medication Sig Dispensed Refills Start Date [...] hours as needed for Pain. Per [facility] ER 0 06/09/2019 Active tamsulosin (FLOMAX) [...] as of this encounter (statuses as of 06/17/2019) Active Problems Problem Noted Date HTN, goal [...] as of this encounter (statuses as of 06/17/2019) Resolved Problems Problem Noted Date Resolved Date [...] as of this encounter (statuses as of 06/17/2019) Immunizations Name Administration Dates Next Due Pneumococcal [...] as of this encounter Progress Notes * Michelle Burleson, [facility] - 06/16/2019 11:30 AM EDT [facility] Pharmacist Patient Phone Numbers Spoke to patient at 10:00am Daughter asking if Zinc 50mg can be started for patient to promote healing. Safety: Medication list reveiwed and no drug interactions exist with Zinc. Zinc is likely effectivewhen used orally and appropriately. Zinc is safe in amounts that do not exceed the tolerable upper intake level of 40mg/day. There is some concern that doses higher the 40mg/day might decrease copperabsorption and result in anemia. This medication is unsafe when used intranasally which does not apply in this case. Ingestion of 10-30 grams (1000-3000mg) can be lethal. Zinc may cause gastrointestinal disturbance such as nausea and vomiting. Efficacy: Per Database of natural medicines, Zinc is likely effective for Zinc deficiency. No evidence of Zinc deficiency per epic. Zinc is also likely effective for diarrhea and only possibly effective for healing purposes such as: [place], common cold, ulcers, pneumonia, etc. Possibly ineffective for influenza, otitis media, cancer, upper respiratory tract infection. Due to only being possible effective, conventional underwriter is unable to recommend that patient start this medication due to lack of evidence. Recommendation: Professor Of Family Medicine is able to provide recommendation to start Zinc. Safety/efficacy data reviewed and provided to patient. If the decision is made to start Zinc recommend to limit to 40mg daily as recommended by the [employer] database. Patient also asking about medications that may cause hair loss. Patient is not on any blood thinners, levothyroxine, etc. Statins may cause hair loss but she has been on this for awhile now. States that she can not correlate it with a new medication. States Biotin was effective in the past but she got a new bottle and now its not working anymore. Reports that maybe she got decreased strength. Says that her doctor said it may be from old age. Advise patient to try higher strength of Biotin has that was effective in the past. Michelle Burleson, PharmD, [facility] Clinical Pharmacist [facility] 06/17/2019,10:43 AM documented in this encounter Plan of Treatment Upcoming Encounters Date Type Specialty Care Team Description 06/19/2019 Office Visit Internal Medicine Yariel Cardoza MD [address] [place] [address] [place] [address] [phone] 06/30/2019 Field Care Coordinator [facility] Corrina Layne RN [address] [place] [address] [phone] 07/01/2019 Home Visit [facility] Haley Davidson RDN [address] [place] [address] [phone] 09/01/2019 Office Visit Internal Medicine Bettye Valenzuela PA-C [address] [place] [address] [place] [address] [phone] Health Maintenance Due Date Last Done Comments [...] Visit Diagnoses Diagnosis Dyslipidemia, goal LDL below 100- Primary Other and unspecified hyperlipidemia documented in this encounter Advance Directives Documents on File Type Date 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
--- OUTSIDE RECORDS SUMMARY | 2023-06-07 08:19 | External Medical Summary | Summary of Care ---
Author Name Unknown Organization [place] [address] Care Team Providers Care Advertising Coordinator Name Role Phone Yariel Cardoza MD Primary Care Provide r Reason for Visit * Reason Comments [facility]: Maintenance Encounter Details Date Type Department Care Team Description 06/30/2019 Scheduled Telephone [facility] [address] [facility] [place] [address] Corrina Layne RN [address] [facility] [place] [address] [phone] Allergies Active Allergy Reactions Severity Noted Date Comments Adhesive Tape 06/29/2003 Sensitive to Naproxen Hives 05/28/2015 Ivp Dye Hives 08/20/2000 Latex Other (Please comment) 01/05/2015 Contact rash Ibuprofen Rash 01/05/2015 documented as of this encounter (statuses as of 06/30/2019) Medications Medication Sig Dispensed Refills Start Date [...] [facility] ER 0 06/09/2019 Active tamsulosin (FLOMAX) 0.4 MG Capsule Take 0.4 mg by mouth daily. Per [facility] ER 0 06/09/2019 Active ondansetron (ZOFRAN) 4 MG Tablet Take 4 mg by mouth every 6 hours as needed for Nausea. Per [facility] ER 0 06/09/2019 Active docusate [...] as of this encounter (statuses as of 06/30/2019) Active Problems Problem Noted Date Moderate episode [...] as of this encounter (statuses as of 06/30/2019) Resolved Problems Problem Noted Date Resolved Date [...] as of this encounter (statuses as of 06/30/2019) Immunizations Name Administration Dates Next Due Pneumococcal [...] Telephone Encounter - Corrina Layne RN - 06/30/2019 8:39 AM EDT Call placed to patient for follow up on IBS sx's, kidney stones. Pt denies any urinary sx's or other acute issues. Passing urine per her usual with no hematuria, burning, fever. Continues to strain, but has not caught any stones. States that she continues to have intermittent abdominal cramping. Still taking fibersure. Offered appointment with RNCM this week. Pt declines due to multiple other appointments. Return appt scheduled with RNCM next week. Encouraged patient to call [facility] [phone] with new/worsening health concerns or problems. Pt verbalizes understanding. documented in this encounter Plan of Treatment Upcoming Encounters Date Type Specialty Care Team Description 06/30/2019 Home Visit [facility] Haley Davidson RDN [address] [facility] [place] [address] [phone] 07/10/2019 Home Visit [facility] Corrina Layne RN [address] [facility] [place] [address] [phone] 07/10/2019 Immunization/Injecti o n [facility] Flu [facility] [address] [place] [address] [phone] 09/01/2019 Office Visit Internal Medicine Bettye Valenzuela PA-C [address] [place] [address] [place] [address] [phone] Health Maintenance Due Date Last Done Comments [...] on File Type Date Recorded Patient Hr Director Expl anation Advanced Directive Advanced Directive Advanced Directive Advanced Directive Advanced Directive
--- OUTSIDE RECORDS SUMMARY | 2023-06-07 08:19 | External Medical Summary | Summary of Care ---
Author Name Unknown Organization [place] [address] Care Team Providers Care Blower Insulator Name Role Phone Yariel Cardoza MD Primary Care Provide r Reason for Visit * Reason Comments Medical Nutrition Therapy Encounter Details Date Type Department Care Team Description 06/30/2019 [facility] [address] [place] [address] Haley Davidson RDN [address] [place] [address] [phone] Dyslipidemia, goal LDL below 100*; COPD, severe (HCC) Allergies Active Allergy Reactions Severity Noted Date Comments Adhesive Tape 06/29/2003 Sensitive to Naproxen Hives 05/28/2015 Ivp Dye Hives 08/20/2000 Latex Other (Please comment) 01/05/2015 Contact rash Ibuprofen Rash 01/05/2015 documented as of this encounter (statuses as of 07/01/2019) Medications Medication Sig Dispensed Refills Start Date [...] hours as needed for Pain. Per [facility] ER 0 06/09/2019 Active tamsulosin (FLOMAX) 0.4 MG Capsule Take 0.4 mg by mouth daily. Per [facility] ER 0 06/09/2019 Active ondansetron (ZOFRAN) 4 MG Tablet Take 4 mg by mouth every 6 hours as needed for Nausea. Per [facility] ER 0 06/09/2019 Active docusate [...] as of this encounter (statuses as of 07/01/2019) Active Problems Problem Noted Date Moderate episode [...] as of this encounter (statuses as of 07/01/2019) Resolved Problems Problem Noted Date Resolved Date [...] as of this encounter (statuses as of 07/01/2019) Immunizations Name Administration Dates Next Due Pneumococcal [...] Progress Notes * Haley Davidson RDN - 06/30/2019 2:49 PM EDT NUTRITION CONSULT - OUTPATIENT [facility] Name: Jayla Hayes Location: [facility] Date: 06/30/2019 Time: 2:55 PM Referring Provider: Corrina Layne RN CM Patient was identified by name and date. Reason for Referral: Overweight/Obesity(COPD and low sodium diet) (06/30/19 7497) NUTRITION ASSESSMENT: Client History 73 year old female with complex medical history including but not limited to kidney stones, HTN, IBS and dyslipidemia who is seen in the home for nutrition consult. Pt reports she has been trying to prepare "healthier foods" for herself and spouse. Pt denies chewing/swallowing problems. Pt denies any pain "related to kidney stones" at this time. Support System: Spouse (06/30/191406) Barriers to Learning: None (06/30/191406) Special Education Needs: None (06/30/191406) Food/Nutrition-Related History Diet Recall/Food Logs Indicate: Breakfast: eggs, hash browns, toast; sometimes shannon/ham; coffee (06/30/191406) Snack (Morning): potato chips; bananas; water (06/30/191406) Lunch: leftovers (typically meat/potatoes/vegetable or spaghetti) (06/30/191406) Snack (Afternoon): potato chips and water (06/30/191406) Dinner: meat, potatoes and vegetable or noodles; water (06/30/191406) Drinks: sometimes juice, water, coffee (06/30/191406) Food and Nutrient Intake and other pertinent information: Pt reports she does not like many fruits Restaurant Meals: At least once a month (06/30/191406) Alcohol Use: None (06/30/191406) Food Allergies and Intolerance: nkfa (06/30/191406) Current Vitamins/Minerals/Supplements: Vitamin D3 (06/30/191406) Pertinent Medications (Current): Current Outpatient Medications Medication Sig Dispense Refill [...] Nausea. Per [facility] ER oxyCODONE-acetaminophen 5-325 mg per tab (PERCOCET) 5-325 MG per tablet Take 1 Tab by mouth every 6hours as needed for Pain. Per [facility] ER tamsulosin (FLOMAX) 0.4 MG Capsule Take 0.4 mg by mouth daily. Per [facility] ER meclizine (ANTIVERT) 25 MG [...] Sprays into each nostril daily. 1 Inhaler5 albuterol-ipratropium (DUONEB) 2.5-0.5 MG/3ML nebulizer solution INHALE 3 MLS VIA NEBULIZER EVERY 4HOURS NEEDED FOR COUGH, SHORTNESS OF BREATH OR WHEEZING. 360 mL 1 dicyclomine (BENTYL) 10 MG Capsule Take 1 Cap by mouth 4 times a day as needed (abdominal pain, cramping). for abdominal pain 120 Cap 5 KLOR-CON [...] as needed for Itching. 222 mL 3 Prior Nutrition Counseling: Alexander Wynnitian (06/30/191406) Physical Activity: Sedentary (06/30/191406) Nutrition-Focused Physical Findings Appearance: WNWD;Obese (06/30/191422) Fluid accumulation: Fluid Assessment: +1 - Description (06/30/191422) Fluid Location: Lower Extremity (06/30/191422) Fluid Description: Chronic (06/30/191422) Digestive system: Digestive: Abdominal pain/tenderness;Appetite: fair;Nausea (06/30/191422) Enteral Access: N/A (06/30/191422) Nerves and cognition: Nerves and Cognition: Awake, alert;Oriented (06/30/191422) Nutritionally significant wound burden: Skin Assessment for Dietitians: Intact (06/30/191422) Other pertinent physical findings: pt ambulating in home w/out assistance. Anthropometric Measurements Noted pt has lost 14lbs (6% of previous BW)) over past year. Pt expresses desire to continue to lose wt; no goal wt established. 07/28/2018 Weight 96.8 kg (213 lb 8 oz) Biochemical Data, Medical Tests, and Procedures There are no biochemical abnormalities requiring a change in the nutrition plan of care. NUTRITION DIAGNOSIS Food and nutrition-related knowledge deficit related to Inadequate fruit and vegetable intake, Significant sodium intake as evidenced by Reported diet and/or activity recall NUTRITION INTERVENTION: Education: Initial/Brief nutrition education (06/30/191657) Nutrition Counseling: Strategies (06/30/191657) Coordination of Nutrition Care: Coordination of other care during nutrition care (06/30/191657) Nutrition Prescription: Diet: Heart Healthy, 2 gm Sodium (06/30/191657) Weight Used (Energy): Current weight (06/30/191657) Kcal/day: 1378 (RMR x 1.2 - 250) (06/30/191657) Protein (gm/kg): 0.8-1.0 (06/30/191657) Protein (gm/day): 74-93 (06/30/191657) Goals: Patient will increase daily intake of fiber by adding 1-2 fruit and vegetable servings and continuing at least 1-2 whole grains daily. Patient will demonstrate or verbalize knowledge of diet. Dietitian Action: Instructed pt on above diet using: Education Materials Cardiac Education: List of High Sodium Foods to Avoid (06/30/191700) Renal Education: Diet for Kidney Stones (06/30/191700) Good Nutrition Education: My Plate (06/30/191700) Encouraged patient to keep feet elevated when seated. Reviewed food label focusing on acceptable %sodium for snack and entrees Discussed lower fat alternatives for snacks NUTRITION MONITORING AND EVALUATION: The following will be monitored and evaluated at the next visit: Monitoring: Monitor weight (06/30/191700) Plan for Return Appointment: 1-2 months (06/30/191700) Minutes of MNT: 90 (83-97) (06/30/191700) Time In: 1400 (06/30/19 1407) Time Out: 1445 (06/30/191700) [facility] documented in this encounter Plan of Treatment Upcoming Encounters Date Type Specialty Care Team Description 07/10/2019 Home Visit [facility] Corrina Layne RN [address] [place] [address] [phone] 07/10/2019 Immunization/Injecti o n [facility] [address] [place] [address] [phone] 08/14/2019 Home Visit [facility] Haley Davidson RDN [address] [place] [address] [phone] 09/01/2019 Office Visit Internal Medicine Bettye Valenzuela PA-C [address] [place] [address] [place] [address] [phone] Health Maintenance Due Date Last Done Comments [...] below 100- Primary Other and unspecified hyperlipidemia COPD, severe (HCC) Chronic airway obstruction, not elsewhere classified documented in this encounter Advance Directives Documents on File Type Date 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
--- OUTSIDE RECORDS SUMMARY | 2023-06-07 08:19 | External Medical Summary | Summary of Care ---
Author Name Unknown Organization [place] [address] Care Team Providers Care Lehr Operator Name Role Phone Yariel Cardoza MD Primary Care Provide r Reason for Visit * Reason Comments [facility]: Maintenance Encounter Details Date Type Department Care Team Description 06/11/2019 Home Visit [facility] 132 [facility] [place] [address] Corrina Layne RN 132 [facility] [place] [address] [phone] Allergies Active Allergy Reactions Severity Noted Date Comments Adhesive Tape 06/29/2003 Sensitive to Naproxen Hives 05/28/2015 Ivp Dye Hives 08/20/2000 Latex Other (Please comment) 01/05/2015 Contact rash Ibuprofen Rash 01/05/2015 documented as of this encounter (statuses as of 06/11/2019) Medications Medication Sig Dispensed Refills Start Date [...] 5 05/15/2019 Active amLODIPine (NORVASC) 2.5 MG TabletIndications :HTN, [...] 6 hours as needed for Pain. Per [facility] ER 0 06/09/2019 Active tamsulosin (FLOMAX) [...] mouth 2 times a day. 0 Active VITAMIN D-3 1000 UNITS PO CAPS 1 daily 0 06/11/20 19 Discontinued montelukast (SINGULAIR) 10 MG Tablet Take 10 mg by mouth at bedtime. 0 06/11/20 19 Discontinued documented as of this encounter (statuses as of 06/11/2019) Active Problems Problem Noted Date HTN, goal [...] as of this encounter (statuses as of 06/11/2019) Resolved Problems Problem Noted Date Resolved Date [...] as of this encounter (statuses as of 06/11/2019) Immunizations Name Administration Dates Next Due Pneumococcal [...] Reading Time Taken Comments Blood Pressure 138/80 06/11/2019 2:52 PM EDT Pulse 68 06/11/2019 2:52 PM EDT Temperature 36.6 C (97.8 F) 06/11/2019 2:52 PM ED T Respiratory Rate 18 06/11/2019 2:52 PM EDT Oxygen Saturation 93% 06/11/2019 2:52 PM EDT RA Inhaled Oxygen Concentration - - Weight - - Height - - Body Mass Index - - documented in this encounter Progress Notes * Corrina Layne RN - 06/11/2019 2:44 PM EDT [facility] Case Manage Visit -follow up from ER visit Date: 06/11/2019 Time: 1:45 PM Name: Jayla Hayes : 1945 Current Concerns: Pt seen for follow up related to ER visit on 06/09/19 with dx of renal colic, [address] scan. Pt was dc'd from ER with new Rx for Oxycodone/apap, Ondansetron prn n/v, and flomax daily. Pt to follow up with urology and pcp. Pt initially presented to ER via ambulance with severe pain in left side of abdomen she rated a 10/10. Today pain remains a 6/10, but patient relates that she has not moved her bowels x 3 days and thinks that is the cause of the pain. Denies any flank pain. States that she had two, small, hard stools this morning, but continues to be uncomfortable. Treatments patient has tried so far include 1 glass of warm prune juice with butter and 2 stool softeners this morning. Pt also admits that she is only drinking 1-2 16 oz bottles of water a day. Educated on the importance of increasing fluids for both the kidney stones and the constipation. Pt agreeable to drinking 4 16oz bottles of water daily. Will take miralax 2xdaily, stool softeners bid, declines an enema. No hard stool could be felt in rectum. Declines enema. Pt has normoactive bowel sounds x 4. No vomiting. Tolerating small meals and fluids. Pt has had intermittent mild nausea that the prn zofran has been effective for. Pt straining urine as instructed by ER. No stones passed at this time. Urine output is adequate andper her usual amount. No change in flow. Denies hematuria today. No flank pain. Urine is light to medium yellow. Educated on low oxylate diet and foods that may increase risk of further renal calculi. Provided written and verbal instruction. Pt able to read back instructions and verbalized understanding. Pt was originally scheduled to follow up with Dr Manzo of [facility] on 07/02/19 for urinary incontinence, but daughter called to get earlier appointment for ER follow up. Was offered appointment tomorrow by Dr Manzo's office, but patient states that she already has an eye appointment and her h usband has tests scheduled if he comes home from the hospital. Emphasized the importance of timely follow up with urology and pcp post ER visit. Offered to have appointments scheduled. Pt declined stating that her daughter is already working on it and it has to be according to her schedule. Tearfuland frustrated over current illness and that of her spouse. Emotional support provided. RNCM will follow up tomorrow am via phone to determine if patient and her spouse have their follow up appointments. If patient's spouse not discharged from hospital or appointments are cancelled willschedule follow up visit if needed. Will re-address follow up appointments again at that time. Physical Exam: BP 138/80 | Pulse 68 | Temp (Src) 97.8 (Tympanic) | Resp 18 | SaO2 93[RA[% Pain 6/10-left sided abdominal pain Physical Exam Constitutional: She is oriented to person, place, and time. She appears well- developed and well-nourished. HENT: Head: Normocephalic. Eyes: Pupils are equal, round, and reactive to light. Neck: Normal range of motion. No JVD present. Cardiovascular: Normal rate, regular rhythm, normal heart sounds and intact distal pulses. Pulmonary/Chest: Effort normal and breath sounds normal. She has no wheezes. She has no rales. She exhibits no tenderness. Abdominal: Soft. Bowel sounds are normal. She exhibits distension. Musculoskeletal: Normal range of motion. She exhibits no edema. Neurological: She is alert and oriented to person, place, and time. Skin: Skin is warm and dry. No erythema. Psychiatric: Her behavior is normal. Judgment and thought content normal. tearful Problems/Symptoms: Review of Systems Constitutional: Negative for appetite change. HENT: Negative. Eyes: Negative. Respiratory: Positive for shortness of breath (with moderate exertion per pt baseline). Negative for cough, chest tightness and wheezing. Cardiovascular: Negative for chest pain, palpitations and leg swelling. Gastrointestinal: Positive for abdominal distention, abdominal pain, constipation and nausea (mild intermittent relieved with zofran prn). Negative for anal bleeding, blood in stool, diarrhea, rectalpain and vomiting. Endocrine: Negative. Genitourinary: Positive for hematuria (yesterday, but none today). Negative for decreased urine volume, difficulty urinating, dysuria, flank pain, frequency and urgency. Musculoskeletal: Negative. Skin: Negative. Allergic/Immunologic: Negative. Neurological: Negative for dizziness, syncope, light-headedness and headaches. Hematological: Negative. Psychiatric/Behavioral: Positive for dysphoric mood. Medication Reconciliation: (See medication list) Does patient take medications as ordered: Yes Pt has all medications in the home. Sets up her med internet media planner independently. Updated medication list with new medications: Oxycodone/apap 5-325mg 1 tab q6 hours prn pain, zofran 4mg 1 tab po q 6 hours prn n/v, tamsulosin 0.4mg 1 tab po daily Patient Well Being: PHQ2/9: @[id number]@ Pt tearful and verbalizes frustration over current illness and that of her spouse who is also a GAHpt and in [facility]. Daughter lives with pt and spouse and provides assistance with transportation, meals, shopping and "whatever else we need." LYN working on [place] application to help pay medication and outpatient therapy (patient had been referred for vestibular manipulation) co-pays. Application pending. Not active with any home health or community resources at this time. Has the patient been feeling optimistic about the future?: Yes (05/29/2019 10:00 AM) SNP Member: No Advanced Care Planning: No documentation, Pt has completed 5 wishes, but needs 2 witnesses. Will provide to [facility] when completed. . Patient's Goals of Care: 1. "I just want to feel better" 2. To have constipation relieved and "get rid of this pain" 3. To be able to care for her Reinforcement/Education: --Constipation: Increase activity Drink plenty of fluids Eat more fiber, fresh fruits and vegetables Consider Miralax daily Avoid harsh laxatives Call with any increased abdominal pain, cramping, fever or chills IBS tx of high fiber diet, stress management, exercise. Information sheet from [facility] ER on kidney stones, low oxalate diet reviewed with patient. Instructed to notify [facility] with any inability to urinate or large amounts of hematuria, clots, fever, increased pain. Reinforced safety education and fall prevention. and Reinforced medication regimen. Timing., Dosing. and Purspose. Treatment/Plan: Increase fluids to at least 64 oz daily for now. Continue to strain urine. Use miralax and stool softeners as instructed. Drink warm prune juice with butter. Increase ambulation. Make follow up urology and pcp appointments within the next week. Call [facility] with any difficulty making appointments. RNCM will follow up with patient in am to determine next in home visit. Treatment(s) Given: Evaluation Patient's 'Red Flags': 1. Inability to pass urine or decreased urinary output 2. fever 3. Increased / uncontrolled pain Patient Needs to Remember: Call [facility] with any new/worsening health concerns / Problems. Referrals Needed: Referred to [facility] for IBS recommendations. Follow Up: Patient encouraged to call the intake phone number for all urgent but not emergent issues. Is this a Transitions of Care visit? No Scheduled to follow up with patient 06/12/19 with phone call to determine plan for next in home visit. Corrina Layne RN 06/11/2019 2:45 PM documented in this encounter Plan of Treatment Upcoming Encounters Date Type Specialty Care Team Description 06/12/2019 Gaming Table [facility] Corrina Layne RN [address] [place] [address] [phone] 06/16/2019 Home Visit [facility] Corrina Layne RN [address] [place] [address] [phone] 09/01/2019 Office Visit Internal Medicine Bettye Valenzuela PA-C [address] [place] [address] [place] [address] [phone] Health Maintenance Due Date Last Done Comments [...] Documents on File Type Date Recorded Patient Interface Developer Expl anation Advanced Directive Advanced Directive Advanced Directive Advanced Directive Advanced Directive
--- OUTSIDE RECORDS SUMMARY | 2023-06-07 08:19 | External Medical Summary | Summary of Care ---
Author Name Unknown Organization [place] [address] Care Team Providers Care Log Chain Feeder Name Role Phone Yariel Cardoza MD Primary Care Provide r Reason for Visit * Reason Comments Medical Nutrition Therapy Encounter Details Date Type Department Care Team Description 06/30/2019 Home Visit [facility] 132 [place] [address] Haley Davidson RDN 132 [place] [address] [phone] Dyslipidemia, goal LDL below 100*; COPD, severe [...] 6 hours as needed for Pain. Per [facility] ER 0 06/09/2019 Active tamsulosin (FLOMAX) 0.4 MG Capsule Take 0.4 mg by mouth daily. Per [facility] ER 0 06/09/2019 Active ondansetron (ZOFRAN) 4 MG Tablet Take 4 mg by mouth every 6 hours as needed for Nausea. Per [facility] ER 0 06/09/2019 Active docusate sodium [...] 2:49 PM EDT NUTRITION CONSULT - OUTPATIENT [facility] Name: Jayla Hayes Location: [facility] Date: 06/30/2019 Time: 2:55 PM Referring [...] potato chips; bananas; water (06/30/191406) Lunch: leftovers (06/30/191406) Snack (Afternoon): as above (06/30/191406) Dinner: meat, potatoes and vegetable or noodles; water (06/30/191406) Drinks: sometimes juice, water, coffee (06/30/191406) Food and Nutrient Intake and other pertinent information: Pt reports she does not like many fruits Restaurant Meals: At least once a month (06/30/191406) Alcohol Use: None (06/30/191406) Food Allergies and Intolerance: nkfa (06/30/191406) Pertinent Medications (Current): Current Outpatient Medications [...] for Nausea. Per [facility] ER oxyCODONE-acetaminophen 5-325 mg per tab (PERCOCET) 5-325 MG per tablet Take 1 Tab by mouth every 6hours as needed for Pain. Per [facility] ER tamsulosin (FLOMAX) 0.4 MG Capsule Take 0.4 mg by mouth daily. Per [facility] ER meclizine (ANTIVERT) 25 MG Tablet [...] 222 mL 3 Prior Nutrition Counseling: Alexander Dietitian (06/30/191406) Physical Activity: Sedentary (06/30/191406) Nutrition-Focused Physical [...] of High Sodium Foods to Avoid (06/30/191700) Good Nutrition Education: My Plate (06/30/191700) [...] (06/30/19 1407) Time Out: 1445 (06/30/191700) [facility] documented in this encounter Plan of Treatment Upcoming Encounters Date Type Specialty Care Team Description 07/10/2019 Home Visit [facility] Corrina Layne RN [address] [place] [address] [phone] 07/10/2019 Immunization/Injecti o n [facility] [address] [place] [address] [phone] 08/14/2019 Home Visit [facility] Haley Davidson RDN [address] [place] [address] [phone] 09/01/2019 Office Visit Internal Medicine Bettye Valenzuela PA-C [address] [place] [address] [place] [address] [phone] Health Maintenance Due Date Last Done Comments [...] on File Type Date Recorded Patient Equity Research Analyst Expl anation Advanced Directive Advanced Directive Advanced Directive Advanced Directive Advanced Directive
--- OUTSIDE RECORDS SUMMARY | 2023-06-07 08:19 | External Medical Summary | Summary of Care ---
Author Name Unknown Organization [place] [address] Care Team Providers Care Visual Coordinator Name Role Phone Yariel Cardoza MD Primary Care Provide r Reason for Visit * Reason Comments [facility]: Maintenance Encounter Details Date Type Department Care Team Description 06/15/2019 Telephone [facility] [address] [facility] [place] [address] Services, Scheduling [address] [place] [address] [facility]: Maintenance Allergies Active Allergy Reactions Severity Noted Date Comments Adhesive Tape 06/29/2003 Sensitive to Naproxen Hives 05/28/2015 Ivp Dye Hives 08/20/2000 Latex Other (Please comment) 01/05/2015 Contact rash Ibuprofen Rash 01/05/2015 documented as of this encounter (statuses as of 06/15/2019) Medications Medication Sig Dispensed Refills Start Date [...] mg by mouth daily. Per [facility] ER 0 06/09/2019 Active ondansetron (ZOFRAN) 4 MG Tablet Take 4 mg by mouth every 6 hours as needed for Nausea. Per [facility] ER 0 06/09/2019 Active docusate sodium (COLACE) 100 MG Capsule Take 100 mg by mouth 2 times a day. 0 Active Sennosides (SENNA) 8.6 MG CAPS Take 1 Cap by mouth as needed for Constipation (1 cap up to two times daily for constipation). 0 06/12/2019 Active documented as of this encounter (statuses as of 06/15/2019) Active Problems Problem Noted Date HTN, goal [...] as of this encounter (statuses as of 06/15/2019) Resolved Problems Problem Noted Date Resolved Date [...] as of this encounter (statuses as of 06/15/2019) Immunizations Name Administration Dates Next Due Pneumococcal [...] Telephone Encounter - Glenna Briones OSA - 06/15/2019 9:38 AM EDT Outbound call to pt to schedule ED f/u and Urology appt, per the request of NATALYA Lind SCHEDULED: 06/19- (PCP) 07/02- (Urology) documented in this encounter Plan of Treatment Upcoming Encounters Date Type Specialty Care Team Description 06/16/2019 [facility] Visit [facility] Corrina Layne RN [address] [place] [address] [place] [address] [phone] 06/19/2019 Office Visit Internal Medicine Yariel Cardoza MD [address] [place] [address] [place] [address] [phone] 09/01/2019 Office Visit Internal Medicine Bettye Valenzuela PA-C [address] [place] [address] [place] [address] [phone] Health Maintenance Due Date Last Done Comments [...] Documents on File Type Date Recorded Patient Mr Teacher Expl anation Advanced Directive Advanced Directive Advanced Directive Advanced Directive Advanced Directive
--- OUTSIDE RECORDS SUMMARY | 2023-06-07 08:20 | External Medical Summary | Summary of Care ---
Author Name Unknown Organization [place] [address] Care Team Providers Care Floral Designer Salesperson Name Role Phone Yariel Cardoza MD Primary Care Provide r Reason for Visit * Reason Comments Medication Question Encounter Details Date Type Department Care Team Description 05/25/2019 Telephone Internal Medicine [address] [address] Yariel Cardoza MD [address] [place] [address] [place] [address] Medication Question Allergies Active Allergy Reactions Severity Noted Date Comments Adhesive Tape 06/29/2003 Sensitive to Naproxen Hives 05/28/2015 Ivp Dye Hives 08/20/2000 Latex Other (Please comment) 01/05/2015 Contact rash Ibuprofen Rash 01/05/2015 documented as of this encounter (statuses as of 05/25/2019) Medications Medication Sig Dispensed Refills Start Date End Date Status VITAMIN D-3 1000 UNITS PO CAPS 1 daily 0 Active camphor-menthol (SARNA) 0.5-0.5 % lotion Apply [...] FOR WHEEZING. 1 Inhaler 5 02/10/2018 Active atenolol (TENORMIN) 25 MG Tablet Take 1 Tab by mouth daily. 90 Tab 1 05/23/2018 Active meclizine (ANTIVERT) 25 MG Tablet TAKE 1 TABLET BY MOUTH ONCE EVERY 6HRS NEEDED FOR DIZZINESS/VERTIGO 10 Tab 0 06/11/2018 Active umeclidinium-vilant lashon (ANORO ELLIPTA) 62.5-25 MCG/INH AEPB Inhale 1 Puff by mouth daily. 0 Active omeprazole (PRILOSEC) 20 MG CPDRIndications:Gas troesophageal reflux disease without esophagitis Take 1 Cap by mouth 2 times a day 30 minutes before morning and evening meals. 60 Cap 5 07/17/2018 Active montelukast (SINGULAIR) 10 MG Tablet Take 10 mg by mouth at bedtime. 0 Active Dextromethorphan-gu aiFENesin (CORICIDIN HBP CONGESTION/COUGH) [...] EVERY DAY 90 Tab 0 05/22/2019 Active documented as of this encounter (statuses as of 05/25/2019) Active Problems Problem Noted Date HTN, goal [...] as of this encounter (statuses as of 05/25/2019) Resolved Problems Problem Noted Date Resolved Date [...] as of this encounter (statuses as of 05/25/2019) Immunizations Name Administration Dates Next Due Pneumococcal [...] encounter Miscellaneous Notes * Telephone Encounter - Sarah Hewitt RN - 05/25/2019 12:05 PM EDT Patient aware and receptive to instructions. * Telephone Encounter - Yariel Cardoza MD - 05/25/2019 11:10 AM EDT She should be taking both. * Telephone Encounter - Sarah Hewitt RN - 05/25/2019 8:18 AM EDT Please advise.Bettye's note doesn't say to stop it. * Telephone Encounter - Swati Arnold PHARM Tech - 05/25/2019 8:10 AM EDT Pt calling stating she was recently prescribed amLODIPine (NORVASC) 2.5 MG Tablet and is unsure if she should still be taking atenolol (TENORMIN) 25 MG Tablet. Please advise. Pt can be reached at [phone] Thank you, Swati Arnold Decontaminator [employer] 05/25/2019, 8:12 AM documented in this encounter Plan of Treatment Upcoming Encounters Date Type Specialty Care Team Description 06/01/2019 Office Visit Internal Medicine Yariel Cardoza MD [address] [place] [address] [place] [address] [phone] Health Maintenance Due Date Last Done Comments *ADVANCE DIRECTIVE NOT ON FILE 12/23/2015 *NEPHROLOGY REFERRAL DUE TO RESISTANT HTN 05/22/2019 Influenza Vaccine (FLU shot) (#1) 2019 07/28/2018, [...] Documents on File Type Date Recorded Patient Ham Sawyer Expl anation Advanced Directive Advanced Directive Advanced Directive Advanced Directive Advanced Directive
--- OUTSIDE RECORDS SUMMARY | 2023-06-07 08:20 | External Medical Summary | Summary of Care ---
Author Name Unknown Organization [place] [address] Care Team Providers Care Store Sales Consultant Name Role Phone Yariel Cardoza MD Primary Care Provide r Reason for Visit * Reason Comments [facility]: Maintenance Encounter Details Date Type Department Care Team Description 05/26/2019 Telephone [facility] 132 [facility] [place] [address] Services, Scheduling [address] [place] [address] [facility]: Maintenance Allergies Active Allergy Reactions Severity Noted Date Comments Adhesive Tape 06/29/2003 Sensitive to Naproxen Hives 05/28/2015 Ivp Dye Hives 08/20/2000 Latex Other (Please comment) 01/05/2015 Contact rash Ibuprofen Rash 01/05/2015 documented as of this encounter (statuses as of 05/26/2019) Medications Medication Sig Dispensed Refills Start Date [...] as of this encounter (statuses as of 05/26/2019) Active Problems Problem Noted Date HTN, goal [...] as of this encounter (statuses as of 05/26/2019) Resolved Problems Problem Noted Date Resolved Date [...] as of this encounter (statuses as of 05/26/2019) Immunizations Name Administration Dates Next Due Pneumococcal [...] Telephone Encounter - Vanessa Jones OSA - 05/26/2019 9:16 AM EDT Patient information sent to [facility] with GI labs and home visit, patient information also faxed to [facility] for PT they will call patient to schedule appt. VIRA Jacobo documented in this encounter Plan of Treatment Upcoming Encounters Date Type Specialty Care Team Description 05/26/2019 Scheduled Telephone [facility]ley, Community Health Mechanical Design Technician [address] [facility] [place] [address] [phone] 06/01/2019 Office Visit Internal Medicine Yariel Cardoza MD [address] [place] [address] [place] [address] [phone] Health Maintenance Due Date Last Done Comments [...] Documents on File Type Date Recorded Patient Roofer Gypsum Expl anation Advanced Directive Advanced Directive Advanced Directive Advanced Directive Advanced Directive
--- OUTSIDE RECORDS SUMMARY | 2023-06-07 08:20 | External Medical Summary | Summary of Care ---
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 1 Inhaler 5 02/10/2018 Active meclizine (ANTIVERT) 25 MG Tablet TAKE [...] EVERY DAY 90 Tab 1 05/30/2019 Active documented as of this encounter (statuses as of 06/01/2019) Active Problems Problem Noted Date HTN, goal [...] as of this encounter (statuses as of 06/01/2019) Resolved Problems Problem Noted Date Resolved Date [...] as of this encounter (statuses as of 06/01/2019) Immunizations Name Administration Dates Next Due Pneumococcal [...] Sign Reading Time Taken Comments Blood Pressure 120/84 06/01/2019 2:25 PM EDT Pulse 64 06/01/2019 2:25 PM EDT Temperature 36.9 C (98.4 F) 06/01/2019 2:25 PM ED T Respiratory Rate 16 06/01/2019 2:25 PM EDT Oxygen Saturation - - Inhaled Oxygen Concentration - - Weight 90.9 kg (200 lb 6 oz) 06/01/2019 2:25 PM EDT Height - - Body Mass Index 37.86 02/05/2019 10:50 AM EDT documented in this encounter Progress Notes * Yariel Cardoza MD - 06/01/2019 2:33 PM EDT Subjective: Jayla Hayes is a 73 year old female. who presents for routine follow-up HPI: Brief Clinical History Ms. Hayes is a 73 year old woman last seen in Internal Medicine today (06-01-19). She has h/o COPD and heart failure. Would like to get off of omeprazole. Taking it once a day instead of twice a day. Not having any heartburn. Had EGD 07/2018 with diffuse erythema of stomach. Got letter from pharmacy she has been taking it too long. Still getting nauseated in the morning. Gets intermittent cramping and diarrhea but not lately. Taking Bentyl as needed. Has not been vomiting. Has Zofran given to her in the hospital but it was expensive. Has been seeing GI. Had extensive work up for diarrhea that was negative. Has been taking hermorning medications with food and that is helping some. Was referred to GI. Had negative EGD and col onoscopy last year. Had negative stool studies about 2 weeks ago. Has been getting vertigo. Mostly with standing up too quickly or turning her head. Was referred to PT but does not want to go to [facility]. Has always gotten motion sickness. Breathing has been good unless it is humid. Using Anora. No recent flares. Wears oxygen when it is humid. Breathing good right now. [place]. Manzo of [place] [facility] [place] for incontinence. PHM: Patient Active Problem List Diagnosis Code [...] (HCC) I27.20 HTN, goal below 140/90 I10 Current Outpatient Medications Medication Sig Dispense Refill atenolol (TENORMIN) 25 MG Tablet TAKE 1 [...] AEPB Inhale 1 Puff by mouth daily. meclizine (ANTIVERT) 25 MG Tablet TAKE 1 TABLET BY MOUTH ONCE EVERY 6HRS NEEDED FOR DIZZINESS/VERTIGO 10 Tab 0 VENTOLIN HFA 108 (90 Base) MCG/ACT inhaler INHALE 2 PUFFS BY MOUTH EVERY 4 HOURS NEEDED FOR WHEEZING. 1 Inhaler 5 Aspirin 81 MG Tablet Take 81 mg by mouth daily. furosemide (LASIX) 20 MG Tablet TAKE 1 TABLET BY MOUTH DAILY NEEDED (SWELLING). FOR FLUID ACCUMULATION OR WEIGHT GAIN 30 Tab 5 triamcinolone acetonide (ARISTOCORT) 0.025 % ointment APPLY TOPICALLY TO AFFECTED AREA TWICE DAILY 0 oxygen GAS Use 2 L/min(Oxygen) as directed continuous. 1 Each 0 polyethylene glycol 3350 (MIRALAX) 255 gram powder Take 17 g by mouth daily. Two-three times per week 255 g 0 camphor-menthol (SARNA) 0.5-0.5 % lotion Apply topically to affected area as needed for Itching. 222 mL 3 VITAMIN D-3 1000 UNITS PO CAPS 1 daily montelukast (SINGULAIR) 10 MG Tablet Take 10 mg by mouth at bedtime. budesonide (PULMICORT) 0.5 MG/2ML nebulizer solution INHALE ONE UNIT DOSE VIAL VIA NEBULIZER TWO TIMES A DAY. 3 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 BENIGN HYPERTENSION 01/28/2002 Bilateral carpal tunnel syndrome 07/20/2015 COPD (chronic obstructive pulmonary disease) ([facility]) COPD, severe ([facility]) 12/21/2015 COPD, severity to be determined ([facility]) 07/20/2015 Dyslipidemia, goal LDL below 100 10/16/2015 Dyslipidemia, goal LDL below 130 08/22/2015 FAM HX-CARDIOVAS DIS NEC 01/28/2002 Generalized osteoarthritis 08/22/2015 GERD (gastroesophageal reflux disease) 07/20/2015 Hypertrophy of breast 08/31/2003 IBS (irritable bowel syndrome) 07/20/2015 Kidney disease, chronic, stage III (GFR 30-59 ml/min) (HCC) 10/16/2015 Kidney stone Lumbar degenerative disc disease [...] JOINT performed by Todd Kunz, at OR [facility] BIOPSY OF BREAST, OPEN 1971 benign, right, removed nipple for blocked milk glands BIOPSY OF BREAST, OPEN 1976 left, benign BREAST SURGERY PROCEDURE NEC bilateral Breast Reduction 09/20/03 BUNION CORRECTED WITH DOUBLE OSTEOTOMY 1991 right foot COLONOSCOPY, DIAGNOSTIC (RECTUM) 03/08/2015 adenomatous polyps, repeat 3 yrs/[facility] COLONOSCOPY, DIAGNOSTIC (RECTUM) 03/26/2018 adenomatous & serrated adenomatous polyps, repeat 3 yrs/[facility] EGD, FLEXIBLE, DIAGNOSTIC 01/21/2015 sm HH/[facility] EGD, FLEXIBLE, DIAGNOSTIC 07/22/2018 mild gastritis, Schatzki ring, duodenal polyp/[facility] ESOPHAGOSCOPY RIGID TRANSORAL HYPOPHARYNX ESOPHAGUS 2005 repair of Zenker's diverticulum LAPAROSCOPY; CHOLECYSTECTOMY 06/04/2016 [...] Relation Age of Onset Heart Disorder Father [place] age 55 Heart Disorder Mother CAD, 84 in '02 Arthritis Mother in fingers Diabetes Brother half brother Stroke Aunt (Unspecified) 80's Stroke Uncle (Unspecified) 60's Family Status Relation Status Fa at age 55 [place], smoked [place] at age 96 unknown cause Zandra Alive Irina Son Alive Son Alive Bro (Not Specified) AUNT (Not Specified) UNCLE (Not Specified) Social History Tobacco Use Smoking status: Former Smoker Packs/day: 1.75 Years: 38.00 Pack years: 66.50 Types: Cigarettes Last attempt to quit: 10/07/1995 Years since quittin.6 Smokeless tobacco: Never Used Tobacco comment: quit in 1995 Substance Use Topics Alcohol use: No Basic Panel Results: BASIC METAB PANEL, BMP Grisel Dt/Tm Resulted Value Status BUN (mg/dL) 05/12/19 3:02P 05/12/19 15 F CREATININE (mg/dL) 05/12/19 3:02P 05/12/19 0.9 F E GLOM FILT RATE ( ) 05/12/19 3:02P 05/12/19 >60.0 F SODIUM (mmol/L) 05/12/19 3:02P 05/12/19 144 F POTASSIUM (mmol/L) 05/12/19 3:02P 05/12/19 3.5 F CHLORIDE (mmol/L) 05/12/19 3:02P 05/12/19 98 F CO2 (mmol/L) 05/12/19 3:02P 05/12/19 37* F ANION GAP (mmol/L) 05/12/19 3:02P 05/12/19 9 F GLUCOSE (mg/dL) 05/12/19 3:02P 05/12/19 93 F CALCIUM (mg/dL) 05/12/19 3:02P 05/12/19 9.5 F Lipid Panel Results: LIPID PANEL WITH DIRECT LDL IF TG ABOVE 400 MG/DL Grisel Dt/Tm Resulted Value Status HOURS FASTING (hours) 07/28/18 2:30P 07/28/18 NOT FASTING F TRIGLYCERIDES (mg/dL) 07/28/18 2:30P 07/28/18 229* F CHOLESTEROL (mg/dL) 07/28/18 2:30P 07/28/18 133 F HDL (mg/dL) 07/28/18 2:30P 07/28/18 36* F CHOL/HDL RATIO ( ) 07/28/18 2:30P 07/28/18 3.7 F LDL (CALCULATED) (mg/dL) 07/28/18 2:30P 07/28/18 51 F LDL DIRECT(REFLEX) (mg/dL) 07/28/18 2:30P 07/28/18 F Value: NOT APPLICABLE ALT Results: ALT(U/L) Grisel Dt/Tm Resulted Value Status 07/28/18 2:30P 07/28/18 22 FINAL 09/12/17 10:17A 09/12/17 16 FINAL 04/17/17 10:53A 04/17/17 21 FINAL CBC Results: CBC/DIFF Grisel Dt/Tm Resulted Value Status WBC (K/uL) 09/12/17 10:17A 09/12/17 6.96 F RBC (M/uL) 09/12/17 10:17A 09/12/17 4.86 F HGB (g/dL) 09/12/17 10:17A 09/12/17 14.4 F HCT (%) 09/12/17 10:17A 09/12/17 47.1* F MCV (fL) 09/12/17 10:09/12/17 96.9 F MCH (pg) 09/12/17 10:09/12/17 29.6 F MCHC (g/dL) 09/12/17 10:17A 09/12/17 30.6* F RDW (%) 09/12/17 10:09/12/17 14.0 F PLATELET COUNT (K/uL) 09/12/17 10:17A 09/12/17 188 F MPV (fL) 09/12/17 10:17A 09/12/17 9.7 F NEUTS (%) 09/12/17 10:09/12/17 68.4 F LYMPHS (%) 09/12/17 10:09/12/17 18.2 F MONOS (%) 09/12/17 10:17A 09/12/17 11.1* F EOS (%) 09/12/17 10:09/12/17 1.9 F BASOS (%) 09/12/17 10:17A 09/12/17 0.4 F ABS. NEUTS (K/uL) 09/12/17 10:17A 09/12/17 4.76 F ABS. LYMPHS (K/uL) 09/12/17 10:17A 09/12/17 1.27 F ABS. MONOS (K/uL) 09/12/17 10:17A 09/12/17 0.77 F ABS. EOS (K/uL) 09/12/17 10:09/12/17 0.13 F ABS. BASOS (K/uL) 09/12/17 10:17A 09/12/17 0.03 F TSH(uIU/mL) Grisel Dt/Tm Resulted Value Status 04/17/17 10:53A 04/17/17 0.69 FINAL 06/19/16 3:29P 06/19/16 1.57 FINAL 01/28/02 9:06A 01/28/02 2.15 FINAL Review of Systems: General: No change in weight, No weakness, No fatigue and No fevers, sweats, or chills Head: No significant headache and No recent significant head injury Eyes: No recent significant change in vision and No eye pain, redness, discharge, or excessive tearing Ears: No recent change in hearing, No ear pain, No ear discharge and + vertigo as above Nose: No h/o frequent colds or sinusitis, No nasal stuffiness and + seasonal allergies Throat/Oropharynx: No teeth or gum problems and No sore throat Respiratory: No cough, sputum, or hemoptysis and No recent change in breathing Cardiac: No chest pain, No shortness of breath, No orthopnea, No paroxysmal nocturnal dyspnea, No edema, No palpitations and No syncope Gastrointestinal: No significant heartburn, No significant change in appetite, No hematemesis, No blood in stools or black tarry stools, No abdominal bloating or early satiety, No abdominal pain and + nausea as above. +diarrhea as above Urinary: +urinary incontinence Objective: BP 120/84 | Pulse 64 | Temp (Src) 98.4 (Tympanic) | Resp 16 | Wt 200 lbs 6 oz (90.890kg) | BMI 37.86 kg/m | BSA 1.98 m Physical Exam: General: alert, no distress, [...] lungs clear to auscultation Abdomen: abdomen soft, non-tender, normal bowel sounds, no masses or organomegaly and no rebound orguarding Extremities: no edema, no clubbing, no cyanosis ASSESSMENT/PLAN: COPD, severe (HCC) (Primary)--stable. Uses oxygen when humid. Continue current inhalers. Dyslipidemia, goal LDL below 100--controlled. Due for labs in July. Gastroesophageal reflux disease without esophagitis--controlled. Discussed tapering off omeprazole and using H2 harsh as needed instead. Call with any problems. Had EGD 07/2018. HTN, goal below 140/90--controlled. Continue current medications. Pulmonary hypertension (HCC)--uses oxygen as needed. 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 Vertigo pretty short lived and limited to position changes. Irritable bowel syndrome with both constipation and diarrhea--referred to GI. On Bentyl. Recent colonoscopy negative. Recent stool studies negative. Mixed incontinence urge and stress (male)(female)--scheduled with urology. Nausea without vomiting--improving with taking medications with food. Could be related to omeprazole, which she is going to taper off of as above. Could also be due to IBS. Follow Up: Return in about 3 months (around 09/01/2019). Yariel Cardoza MD documented in this encounter Nursing Notes * Gracie Martino LPN - 06/01/2019 2:24 PM EDT Recheck. Received letter from pharmacy that she has been on omeprazole longer than recommended. documented in this encounter Plan of Treatment Upcoming Encounters Date Type Specialty Care Team Description 06/04/2019 Home Visit [facility] [place], [place], [facility] Health Gift Shop Manager [address] [place] [address] [place] [address] [phone] 09/01/2019 Office Visit Internal Medicine Bettye Valenzuela PA-C [address] [place] [address] [place] [address] [phone] Health Maintenance Due Date Last Done Comments [...] LDL below 100 Other and unspecified hyperlipidemia Gastroesophageal reflux disease without esophagitis Esophageal reflux HTN, goal below 140/90 Unspecified essential hypertension Pulmonary hypertension (HCC) Other chronic pulmonary heart diseases 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
--- OUTSIDE RECORDS SUMMARY | 2023-06-07 08:20 | External Medical Summary | Summary of Care ---
Author Name Unknown Organization [place] [address] Care Team Providers Care Proration Clerk Name Role Phone Leanne Cardoza MD Primary Care Provide r Reason for Visit * Reason Comments eRx-Medication Refill Encounter Details Date Type Department Care Team Description 06/04/2019 Refill Internal Medicine [address] [place] [id number] Josie Ryan PA-C [address] [place] [address] [place] [address] Allergies Active Allergy Reactions Severity Noted Date Comments Adhesive Tape 06/29/2003 Sensitive to Naproxen Hives 05/28/2015 Ivp Dye Hives 08/20/2000 Latex Other (Please comment) 01/05/2015 Contact rash Ibuprofen Rash 01/05/2015 documented as of this encounter (statuses as of 06/05/2019) Medications Medication Sig Dispensed Refills Start Date [...] mg by mouth at bedtime. 0 Active Dextromethorphan- guaiFENesin (CORICIDIN HBP CONGESTION/COUGH) [...] FOR DIZZINESS/VERTIGO 10 Tab 0 06/05/2019 Active meclizine (ANTIVERT) 25 MG Tablet TAKE 1 TABLET BY MOUTH ONCE EVERY 6HRS NEEDED FOR DIZZINESS/VERTIGO 10 Tab 0 06/11/2018 06/04/20 19 Discontinued documented as of this encounter (statuses as of 06/05/2019) Active Problems Problem Noted Date HTN, goal [...] as of this encounter (statuses as of 06/05/2019) Resolved Problems Problem Noted Date Resolved Date [...] as of this encounter (statuses as of 06/05/2019) Immunizations Name Administration Dates Next Due Pneumococcal [...] Telephone Encounter - Leanne Cardoza MD - 06/05/2019 7:51 AM EDT Signed Prescriptions: Disp Refills meclizine (ANTIVERT) 25 MG Tablet 10 Tab 0 Sig: TAKE 1 TABLET BY MOUTH ONCE EVERY 6 HOURS NEEDED FOR DIZZINESS/VERTIGO Authorizing Provider: LEANNE CARDOZA * Telephone Encounter - Jame Tavarez RPh - 06/05/2019 7:16 AM EDT Pending Prescriptions: Disp Refills meclizine (ANTIVERT) 25 MG Tablet [Pharma*10 Tab 0 Sig: TAKE 1 TABLET BY MOUTH ONCE EVERY 6 HOURS NEEDED FOR DIZZINESS/VERTIGO * Telephone Encounter - Jame Tavarez RPh - 06/05/2019 7:15 AM EDT Refill pharmacists currently not authorized to approve refills for this class of medication per refill protocol. Please approve if appropriate. Thanks, Jame Tavarez, PharmD Clinical Pharmacist TelePharmacy 06/05/2019 7:15 AM * Telephone Encounter - Jame Tavarez RPh - 06/05/2019 7:15 AM EDT Pending Prescriptions: Disp Refills meclizine (ANTIVERT) 25 MG Tablet [Pharma*10 Tab 0 Sig: TAKE 1 TABLET BY MOUTH ONCE EVERY 6 HOURS NEEDED FOR DIZZINESS/VERTIGO Last Office Visit: 06/01/2019 Next Office Visit: 09/01/2019 Scheduled Provider(s): Bettye Valenzuela PA-C If no future appointments scheduled, and last appointment is greater than a year ago, please schedule patient for a follow-up appointment Last date the medication was ordered: 06/11/18 Pharmacy: [id number]- [place] Is this request for a controlled substance?No Urine Drug Screen:No results found for this or any previous visit. Patient Phone Numbers Labs: Lab Results Component Value Date/Time CREAT 0.9 05/12/2019 03:02 PM POTASSIUM 3.5 05/12/2019 03:02 PM TSH 0.69 04/17/2017 10:53 AM LDLCALC 51 07/28/2018 02:30 PM ALT 22 07/28/2018 02:30 PM HGBA1C 5.7 03/19/2017 08:05 AM documented in this encounter Plan of Treatment Upcoming Encounters Date Type Specialty Care Team Description 09/01/2019 Office Visit Internal Medicine Bettye Valenzuela PA-C [address] [place] [address] [place] [address] [phone] Health Maintenance Due Date Last Done Comments [...] Documents on File Type Date Recorded Patient Bologna Maker Expl anation Advanced Directive Advanced Directive Advanced Directive Advanced Directive Advanced Directive
--- OUTSIDE RECORDS SUMMARY | 2023-06-07 08:20 | External Medical Summary | Summary of Care ---
Author Name Unknown Organization [place] [address] Care Team Providers Care Social Service Coordinator Name Role Phone Yariel Cardoza MD Primary Care Provide r Encounter Details Date Type Department Care Team Description 06/04/2019 Home Visit [facility] [address] [facility] [place] [address] [facility] Geriatric Physician [address] [facility] [place] [address] [phone] Allergies Active Allergy Reactions Severity Noted Date [...] as of this encounter Progress Notes * Crystal Crowley [facility] Geriatric Physician - 06/05/2019 6:02 AM EDT [facility] Visit Date: 06/04/2019 Time:11:30 AM Name: Jayla Hayes : 1945 Source of Information: Pt Condition Changes: Are there any changes in medical condition since last visit? Medications: Are there any changes in medication management since last visit? Health Concerns: Does the patient have any health concerns since last visit? Plan: Obtained signatures on MA application. Will fax to [facility] Office. Pt wants current Living Will in chart removed. Completed 5 Wishes will get witnessed and return to clinic or @ staff. Follow Up: Patient encouraged to call the intake phone number for all urgent but not emergent issues. Scheduled to follow up with patient end of June regarding MA application. Crystal Crowley [facility] 06/05/2019 6:02 AM documented in this encounter Miscellaneous Notes * ACP (Advance Care Planning) - Crystal Crowley [facility] Geriatric Physician - 06/05/2019 6:05 AM EDT Pt wants any previous Living Will removed from chart. Completing 5 Wishes. Wants resuscitation. documented in this encounter Plan of Treatment Upcoming Encounters Date Type Specialty Care Team Description 09/01/2019 Office Visit Internal Medicine Bettye Valenzuela PA-C [address] [place] [address] [place] [address] [phone] Health Maintenance Due Date Last Done Comments [...] on File Type Date Recorded Patient Senior Financial Reporting Analyst Expl anation Advanced Directive Advanced Directive Advanced Directive Advanced Directive Advanced Directive
--- OUTSIDE RECORDS SUMMARY | 2023-06-07 08:20 | External Medical Summary | Summary of Care ---
Author Name Unknown Organization [place] [address] Care Team Providers Care Restorative Coordinator Name Role Phone Yariel Cardoza MD Primary Care Provide r Encounter Details Date Type Department Care Team Description 06/05/2019 External Data Patient Outcomes JVION Allergies Active Allergy Reactions Severity Noted Date [...] Visit Internal Medicine Bettye Valenzuela PA-C [address] [place] [address] [place] [address] [phone] Health Maintenance Due Date Last Done Comments [...] Documents on File Type Date Recorded Patient Heat Set Operator Expl anation Advanced Directive Advanced Directive Advanced Directive Advanced Directive Advanced Directive
--- OUTSIDE RECORDS SUMMARY | 2023-06-07 08:20 | External Medical Summary | Summary of Care ---
Author Name Unknown Organization [place] [address] Care Team Providers Care Brake Rider Name Role Phone Yariel Cardoza MD Primary Care Provide r Reason for Visit * Reason Comments FYI f/u ER call Encounter Details Date Type Department Care Team Description 06/10/2019 Telephone [facility] [address] [place] [address] Chantell Mcdonnell, RN [address] [facility] [place] [address] [phone] FYI (f/u ER call) Allergies Active Allergy Reactions Severity Noted Date [...] Telephone Encounter - Chantell Mcdonnell RN - 06/11/2019 7:12 AM EDT Called pt's home to check on her spouse and she reports she was in the ER yesterday with a kidney stone. She reports she woke with stomach pain and thought it was indigestion. She then developed severe pain and vomiting and called 911. They dx her with a non obstructing kidney stone. She currently is straining all urine and she reports her urine is currently bloody tinged but she has not strained any stones. She reports her pain is controlled. She denies any fever/chills. She is able to eat and drink and is not vomiting. I have instructed her to call [facility] [phone] number with any condition changes and she is agreeable. Will f/u with phone call and possible nursing visit on 06/11. documented in this encounter Plan of Treatment Upcoming Encounters Date Type Specialty Care Team Description 06/11/2019 Drug Inspector [facility] Corrina Layne RN [address] [place] [address] [phone] 06/16/2019 Home Visit [facility] Corrina Layne RN [address] [place] [address] [phone] 09/01/2019 Office Visit Internal Medicine Bettye Valenzuela PA-C [address] [place] [address] [place] [address] [phone] Health Maintenance Due Date Last Done Comments [...] Documents on File Type Date Recorded Patient Marketing Editor Expl anation Advanced Directive Advanced Directive Advanced Directive Advanced Directive Advanced Directive
--- OUTSIDE RECORDS SUMMARY | 2023-06-07 08:20 | External Medical Summary | Summary of Care ---
Author Name Unknown Organization [place] [address] Care Team Providers Care Warp Tying Machine Knotter Name Role Phone Yariel Cardoza MD Primary Care Provide r Reason for Visit * Reason Comments [facility]: Maintenance t/c f/u Encounter Details Date Type Department Care Team Description 05/26/2019 Payroll Analyst [facility] 132 [facility] [place] [address] Deborah Matias, RN 132 [facility] [place] [address] [phone] Irritable bowel syndrome with both constipation and diarrhea* Allergies Active Allergy Reactions Severity Noted Date [...] of this encounter Progress Notes * Deborah Matias, RN - 05/26/2019 11:06 AM EDT T/c to pt, informed that stool specimens are negative and working towards getting colonoscopy scheduled. States bowel have improved and now having approx 4 soft formed stools daily. Nausea improved as well. No longer taking meds on empty stomach and using sharri and chamomile tea. Has been contacted about scheduling OP PT apt for vestibular maneuver but states, ''I can't afford to go.'' Reports she and (also a [facility] pt) are on a tight, fixed income. Will refer to [facility]. documented in this encounter Plan of Treatment Upcoming Encounters Date Type Specialty Care Team Description 05/26/2019 Scheduled Telephone [facility] Crystal Crowley, Community Health Chief Radiation Therapist 132 [facility] [place] [id number] 06/01/2019 Office Visit Internal Medicine Yariel Cardoza MD [address] [place] [address] [place] [address] Health Maintenance Due Date [...] syndrome with both constipation and diarrhea- Primary documented in this encounter Advance Directives Documents on File Type Date Recorded Patient Manager Community Relations Expl anation Advanced Directive Advanced Directive Advanced Directive Advanced Directive Advanced Directive
--- OUTSIDE RECORDS SUMMARY | 2023-06-07 08:20 | External Medical Summary | Summary of Care ---
Author Name Unknown Organization [place] [address] Care Team Providers Care Equine Breeder Name Role Phone Yariel Cardoza MD Primary Care Provide r Reason for Visit * Reason Comments [facility]: Maintenance Encounter Details Date Type Department Care Team Description 05/26/2019 Telephone [facility] 132 [facility] [place] [address] Services, Scheduling [address] [place] [address] [facility]: Maintenance Allergies Active Allergy [...] Encounter - Vanessa Jones OSA - 05/26/2019 4:33 PM EDT Patient is now refusing to going to [facility], MARTHA will let us know when she is ready to scheduled. VIRA Jacobo * Telephone Encounter - Vanessa Jones OSA - 05/26/2019 9:16 AM EDT Patient information sent to [facility] with GI labs and home visit, patient information also faxed to [facility] for PT they will call patient to schedule appt. VIRA Jacobo documented in this encounter Plan of Treatment Upcoming Encounters Date Type Specialty Care Team Description 05/29/2019 Home Visit [facility] Client Services Associate [address] [place] [address] [place] [address] [phone] 06/01/2019 Office Visit Internal Medicine Yariel Cardoza MD [address] [place] [address] [place] [address] Health Maintenance Due Date [...] Documents on File Type Date Recorded Patient Community Relations Assistant Expl anation Advanced Directive Advanced Directive Advanced Directive Advanced Directive Advanced Directive
--- OUTSIDE RECORDS SUMMARY | 2023-06-07 08:20 | External Medical Summary | Summary of Care ---
Author Name Unknown Organization [place] [address] Care Team Providers Care State Epidemiologist Name Role Phone Yariel Cardoza MD Primary Care Provide r Encounter Details Date Type Department Care Team Description 06/09/2019 Scan Encounter Unspecified Department <No scans attached> Allergies Active Allergy Reactions Severity Noted Date Comments Adhesive Tape 06/29/2003 Sensitive to Naproxen Hives 05/28/2015 Ivp Dye Hives 08/20/2000 Latex Other (Please comment) 01/05/2015 Contact rash Ibuprofen Rash 01/05/2015 documented as of this encounter (statuses as of 06/10/2019) Medications Medication Sig Dispensed Refills Start Date [...] as of this encounter (statuses as of 06/10/2019) Active Problems Problem Noted Date HTN, goal [...] as of this encounter (statuses as of 06/10/2019) Resolved Problems Problem Noted Date Resolved Date [...] as of this encounter (statuses as of 06/10/2019) Immunizations Name Administration Dates Next Due Pneumococcal [...] Specialty Care Team Description 06/16/2019 Home Visit [facility] Corrina Layne RN [address] [place] [address] [phone] 09/01/2019 Office Visit Internal Medicine Bettye Valenzuela PA-C [address] [place] [address] [place] [address] [phone] Health Maintenance Due Date Last Done Comments [...] on File Type Date Recorded Patient Hand Blocker Expl anation Advanced Directive Advanced Directive Advanced Directive Advanced Directive Advanced Directive
--- OUTSIDE RECORDS SUMMARY | 2023-06-07 08:20 | External Medical Summary | Summary of Care ---
Author Name Unknown Organization [place] [address] Care Team Providers Care Bilingual Sales Representative Name Role Phone Yariel Cardoza MD Primary Care Provide r Reason for Visit * Reason Comments [facility]: Maintenance first RN visit with [facility] Encounter Details Date Type Department Care Team Description 05/19/2019 [facility] Visit [facility] 132 [facility] [place] [address] Deborah Matias, RN 132 [place] [address] [phone] Allergies Active Allergy Reactions Severity Noted Date [...] DIZZINESS/VERTIGO 10 Tab 0 06/11/2018 Active umeclidinium-vilant lahson (ANORO ELLIPTA) 62.5-25 MCG/INH AEPB Inhale 1 [...] mouth daily. 90 Tab 3 05/19/2019 Active documented as of this encounter (statuses [...] Sign Reading Time Taken Comments Blood Pressure 142/90 05/25/2019 7:31 PM EDT Pulse 65 05/25/2019 7:31 PM EDT Temperature 37.1 C (98.7 F) 05/25/2019 7:31 PM ED T Respiratory Rate 18 05/25/2019 7:31 PM EDT Oxygen Saturation 96% 05/25/2019 7:31 PM EDT on RA Inhaled Oxygen Concentration - - Weight - - Height - - Body Mass Index - - documented in this encounter Progress Notes * Deborah Matias RN - 05/25/2019 6:51 PM EDT [facility] Stator Plate Washer Monthly Visit Date: 05/19/2019 Time:0930 AM Name: Jayla Hayes : 1945 Current Concerns: New enrollment today Pt struggling with HTN, loose stools, vertigo and frequent nausea without vomiting d/t gastritis Increased sob with heat/humidity Physical Exam: There were no vitals taken for this visit. Pain 0 Physical Exam Constitutional: She is oriented to person, place, and time. She appears well- developed and well-nourished. Neck: Normal range of motion. Cardiovascular: Normal rate, regular rhythm, normal heart sounds and intact distal pulses. Exam reveals no gallop and no friction rub. No murmur heard. Pulmonary/Chest: Effort normal and breath sounds normal. No respiratory distress. She has no wheezes. She has no rales. She exhibits no tenderness. Abdominal: She exhibits no distension. There is no tenderness. There is no rebound and no guarding. Hyperactive bs Musculoskeletal: Normal range of motion. She exhibits edema (+1 b/l pitting). She exhibits no tenderness or deformity. Neurological: She is alert and oriented to person, place, and time. Skin: Skin is warm and dry. Psychiatric: Her behavior is normal. Judgment and thought content normal. Depressed mood/affect Problems/Symptoms: Review of Systems Constitutional: Positive for fatigue. Negative for activity change, appetite change, chills, diaphoresis, fever and unexpected weight change. HENT: Negative. Eyes: Negative. Respiratory: Positive for shortness of breath (at baseline). Negative for apnea, cough, choking, chest tightness, wheezing and stridor. Cardiovascular: Positive for leg swelling. Negative for chest pain and palpitations. Gastrointestinal: Positive for diarrhea and nausea. Negative for abdominal distention, abdominal pain, anal bleeding, blood in stool, constipation, rectal pain and vomiting. Endocrine: Negative. Genitourinary: Negative. Musculoskeletal: Negative. Skin: Negative. Allergic/Immunologic: Negative. Neurological: Positive for dizziness (frequent). Negative for tremors, seizures, syncope, facial asymmetry, speech difficulty, weakness, light-headedness, numbness and headaches. Psychiatric/Behavioral: Positive for sleep disturbance. Depressed mood/affect Medication Reconciliation: (See medication list) Does patient take medications as ordered: Yes Manages her own meds and is very knowledgeable of them. Has been taking increased dose of sertraline for approx 1 week. Uses nebulizer tid and cleans qhs and allows to dry Patient Well Being: PHQ2/9: @[id number]@ Pt verbalized frustration with recent ER visits and poor health Lives with her , daughter and grandson. She is her 's primary cg and he has had many medical issues over past year with multiple hospitalizations. Continues to feel depressed. Relates it to her and her 's failing health. Hopeful that increased sertraline dose will be helpful in coming weeks. Denies falls, gait steady Wears o2 2lnc at hs and during day prn Reports decreased sleep Denies leg heaviness as she had a first [facility] visit Has the following equipment in home: cane, walker, walk in shower and seat, hand rails, ramp outside Is followed by Dr. Soriano, Pulmonology, at [facility] SNP Member: No Advanced Care Planning: No documentation, will involve [facility]. Patient's Goals of Care: 1. To no longer have diarrhea 2. To no longer have vertigo 3. To continue to take care of 4. To feel less depressed Reinforcement/Education: Educated on home safety: ? Create [...] medication regimen. Timing., Dosing. and Purspose. Treatment/Plan: Provided supplies for collection of stool sample. Pt agreed to collect and take to op lab Results of testing are to be faxed to GI at [facility] and colonoscopy is to be scheduled. Op PT referral for vestibular manipulation in hopes this will relieve pt's vertigo Encouraged use of sharri in any form, chamomile tea and raw honey to soothe gastritis Do not take meds on empty stomach (has been doing) Nebs as ordered for sob Treatment(s) Given: Evaluation and Reinforced medication regimen - timing / dosing / purpose Patient's 'Red Flags': 1. fever 2. Worsening sob 3. Headache 4. Vision or speech changes 5. Weakness Patient Needs to Remember: Call [facility] with red flags Referrals Needed: LYN and Other OP PT Follow Up: Patient encouraged to call the intake phone number for all urgent but not emergent issues. Is this a Transitions of Care visit? No Scheduled to follow up with patient in 1-2 weeks. Deborah Matias RN 05/25/2019 6:51 PM documented in this encounter Plan of Treatment Upcoming Encounters Date Type Specialty Care Team Description 05/26/2019 [facility] Deborah Matias RN [address] [place] [address] [place] [address] [phone] 06/01/2019 Office Visit Internal Medicine Yariel Cardoza MD [address] [place] [address] [place] [id number] Health Maintenance Due Date Last Done Comments [...] Documents on File Type Date Recorded Patient Dissolver Operator Expl anation Advanced Directive Advanced Directive Advanced Directive Advanced Directive Advanced Directive
--- OUTSIDE RECORDS SUMMARY | 2023-06-07 08:20 | External Medical Summary | Summary of Care ---
Author Name Unknown Organization [place] [address] Care Team Providers Care Shank Carrier Name Role Phone Yariel Cardoza MD Primary Care Provide r Reason for Visit * Reason Comments [facility]: Maintenance Encounter Details Date Type Department Care Team Description 05/26/2019 Scheduled Telephone [facility] 132 [facility] [place] [address] [facility] Community Health Plasterer Spot [address] [facility] [address] [phone] Allergies Active Allergy Reactions Severity Noted Date [...] Telephone Encounter - Crystal Crowley Community Health Plasterer Spot - 05/26/2019 3:22 PM EDT Explained roll of LYN and scheduled appt with pt. documented in this encounter Plan of Treatment Upcoming Encounters Date Type Specialty Care Team Description 05/29/2019 [facility] Visit [facility] Crystal Crowley Community Health Plasterer Spot 132 [address] [place] [address] [phone] 06/01/2019 Office Visit Internal Medicine Yariel Cardoza MD [address] [place] [address] [place] [address] [phone] Health Maintenance Due Date Last Done Comments [...] Documents on File Type Date Recorded Patient Sack Filler Expl anation Advanced Directive Advanced Directive Advanced Directive Advanced Directive Advanced Directive
--- OUTSIDE RECORDS SUMMARY | 2023-06-07 08:20 | External Medical Summary | Summary of Care ---
Author Name Unknown Organization [place] [address] Care Team Providers Care Admissions Consultant Name Role Phone Yariel Cardoza MD Primary Care Provide r Reason for Visit * Reason Comments [facility]: Maintenance f/u on ER visit Encounter Details Date Type Department Care Team Description 06/11/2019 Used Equipment Sales Representative [facility] 132 [facility] [place] [address] Corrina Layne RN 132 [facility] [place] [address] [phone] Renal colic* Allergies Active Allergy Reactions Severity Noted Date [...] Notes * Corrina Layne RN - 06/11/2019 11:18 AM EDT Call to patient to follow up on ER visit on 06/09/19 with dx of kidney stones. Pt reports that she isnot feeling well today. Having a lot of abdominal pain. Thinks that it's more due to constipation. Has not passed any stones yet. Voiding without difficulty. Pt agreeable to visit today with [facility]. Visit scheduled. documented in this encounter Plan of Treatment Upcoming Encounters Date Type Specialty Care Team Description 06/11/2019 Home Visit [facility] Corrina Layne RN 132 [place] [address] [phone] 06/16/2019 Home Visit [facility] Corrina Layne RN 132 [place] [address] [phone] 09/01/2019 Office Visit Internal Medicine Bettye Valenzuela PA-C [address] [place] [address] [place] [address] [phone] Health Maintenance Due Date Last Done Comments [...] encounter Visit Diagnoses Diagnosis Renal colic- Primary documented in this encounter Advance Directives Documents on File Type Date Recorded Patient Veneer Taping Machine Operator Expl anation Advanced Directive Advanced Directive Advanced Directive Advanced Directive Advanced Directive
--- OUTSIDE RECORDS SUMMARY | 2023-06-07 08:21 | External Medical Summary ---
Author Name Unknown Address [address] [place] [address] [place] [address] Phone Organization [id number] [place] [address] Laboratory Report Ordering Provider Test Date Status MONO GAN 05/21/2019 08:00:00 Final Observation Date Value Abnormality Reference Status Source 05/21/2019 09:40 STOOL Final Gram Stain 05/21/2019 21:39 Negative for all Enteric bacterial targets, viruses, and genetic virulence marker. This assay detects: Campylobacter Group (C. coli, C. jejuni, and C. librado), Salmonella species, Shigella species (S. dysenteriae, S. boydii, S. sonnei, and S. flexneri), Vibrio Group (V. cholerae and V. parahaemolyticus), Yersinia enterocolitica, Norovirus GI/GII, Rotavirus A, Shiga toxin 1 gene and Shiga toxin 2 gene virulence markers. Final Bacteria XXX Cult 05/22/2019 09:38 NO AEROMONAS OR PLESIOMONAS ISOLATED Final REPORT STATUS 05/23/2019 08:52 05/23/2019 FINAL Final Performing Location [address] [place] [address]
--- OUTSIDE RECORDS SUMMARY | 2023-06-07 08:21 | External Medical Summary | Summary of Care ---
Author Name Unknown Organization [place] [address] Care Team Providers Care Repacker Name Role Phone Yariel Cardoza MD Primary Care Provide r Reason for Visit * Reason Comments [facility]: Enrollment Encounter Details Date Type Department Care Team Description 05/14/2019 Telephone [facility] 132 [facility] [place] [address] Morena Burton CRNP [facility] [place] [address] [phone] [facility]: Enrollment Allergies Active Allergy Reactions Severity Noted Date Comments Adhesive Tape 06/29/2003 Sensitive to Naproxen Hives 05/28/2015 Ivp Dye Hives 08/20/2000 Latex Other (Please comment) 01/05/2015 Contact rash Ibuprofen Rash 01/05/2015 documented as of this encounter (statuses as of 05/18/2019) Medications Medication Sig Dispensed Refills Start Date [...] FOR DIZZINESS/VERTIGO 10 Tab 0 06/11/2018 Active umeclidinium-radha nterol (ANORO ELLIPTA) 62.5-25 MCG/INH AEPB Inhale 1 Puff by mouth daily. 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 60 Cap 5 07/17/2018 Active atorvaSTATin (LIPITOR) 20 MG TabletIndications :Dyslipidemia, goal LDL below 100 TAKE 1 TABLET BY MOUTH DAILY. 90 Tab 1 09/24/2018 Active montelukast (SINGULAIR) 10 MG Tablet Take [...] mouth daily. 30 Tab 5 05/15/2019 Active sertraline (ZOLOFT) 25 MG Tablet TAKE 1 TABLET BY MOUTH EVERY DAY 30 Tab 5 02/23/2019 05/15/20 19 Discontinued documented as of this encounter (statuses as of 05/18/2019) Active Problems Problem Noted Date HTN, goal [...] as of this encounter (statuses as of 05/18/2019) Resolved Problems Problem Noted Date Resolved Date [...] as of this encounter (statuses as of 05/18/2019) Immunizations Name Administration Dates Next Due Pneumococcal [...] encounter Miscellaneous Notes * Telephone Encounter - Kristin Robles RN - 05/18/2019 1:44 PM EDT Return phone call to pt regarding the increase in her Sertraline dosage. Pt stated that she was already aware that it was increased to 50 mg. Pt states that she already picked up her script at her pharmacy. Routed to SAMIR and SELENE THOMAS. * Telephone Encounter - Kristin Robles RN - 05/18/2019 9:01 AM EDT Left message on pt's VM to return call to intake regarding below message from SAMIR. * Telephone Encounter - Morena Burton CRNP - 05/15/2019 9:01 AM EDT Please notify pt that pcp office in agreement with increase sertraline dose to 50mg. [facility] Keep follow up appt as scheduled with pcp office. EFRAIN Cabrera. * Telephone Encounter - Bettye Valenzuela PA-C - 05/14/2019 4:06 PM EDT I saw Jayla yesterday 05/12/19 in the office for ER follow up. Would agree with her anxiety playing a role and agree with increasing sertraline to 50 mg daily. I have an appt with her again next week and can discuss with her then as well. * Telephone Encounter - Morena Burton CRNP - 05/14/2019 11:[address] Cardoza, Jayla was enrolled into [facility] services today. --plans to keep all follow up appt with GI, urology and pulm. --Significant personal stress-- is ill. She admittedly feels anxious, [facility] Think her anxiety could be major contributing factor to her feeling unwell. Are you ok if we increase her sertraline to 50mg daily and monitor? Let me know if you have any other recommendations and thank you for allowing us to participate in her care. SAMIR Valdez documented in this encounter Plan of Treatment Upcoming Encounters Date Type Specialty Care Team Description 05/19/2019 Home Visit [facility] Deborah Matias, RN 132 [facility] [place] [address] [phone] 05/19/2019 Office Visit Internal Medicine Bettye Valenzuela PA-C [address] [place] [address] [place] [address] [phone] 05/21/2019 Cardiac Studies Cardiac Studies [address] [place] [address] [phone] 06/01/2019 Office Visit Internal Medicine Yariel Cardoza MD [address] [place] [address] [place] [address] [phone] Health Maintenance Due Date Last Done Comments [...] Documents on File Type Date Recorded Patient Income Tax Analyst Expl anation Advanced Directive Advanced Directive Advanced Directive Advanced Directive Advanced Directive
--- OUTSIDE RECORDS SUMMARY | 2023-06-07 08:21 | External Medical Summary | Summary of Care ---
Author Name Unknown Organization [place] [address] Care Team Providers Care Public Relations Name Role Phone Yariel Cardoza MD Primary Care Provide r Reason for Visit * Reason Comments Test Results Encounter Details Date Type Department Care Team Description 05/22/2019 Telephone Internal Medicine [address] [place] [address] Bettye Valenzuela PA-C [address] [place] [address] [place] [address] Test Results Allergies Active [...] Telephone Encounter - Harmony Sarkar LPN - 05/25/2019 9:53 AM EDT Patient aware and receptive to instructions. 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
--- OUTSIDE RECORDS SUMMARY | 2023-06-07 08:21 | External Medical Summary | Summary of Care ---
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, unspecified laterality Gait disturbance Bettye Valenzuela PA-C [address] [place] [address] [place] [address] Reason for Visit * Reason Comments Re-Check Encounter Details Date Type Department Care Team Description 05/19/2019 Office Visit Internal Medicine [address] [place] [address] Bettye Valenzuela PA-C [address] [place] [address] [place] [address] [phone] 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, unspecified laterality*; Gait disturbance; Pulmonary hypertension (HCC); HTN, goal below 140/90; COPD, severe (HCC); Irritable bowel syndrome with both constipation and diarrhea; Lumbar degenerative disc disease; Spinal stenosis of lumbar region, unspecified whether neurogenic claudication present; Primary osteoarthritis of right knee Allergies Active Allergy Reactions Severity Noted Date Comments Adhesive Tape 06/29/2003 Sensitive to Naproxen Hives 05/28/2015 Ivp Dye Hives 08/20/2000 Latex Other (Please comment) 01/05/2015 Contact rash Ibuprofen Rash 01/05/2015 documented as of this encounter (statuses as of 05/21/2019) Medications Medication Sig Dispensed Refills Start Date [...] 5 07/17/2018 Active atorvaSTATin (LIPITOR) 20 MG TabletIndications:D yslipidemia, [...] as of this encounter (statuses as of 05/21/2019) Active Problems Problem Noted Date HTN, goal below 140/90 08/09/2017 Pulmonary hypertension 05/07/2017 Lumbar spinal stenosis 02/18/2017 Primary osteoarthritis of right knee Multiple thyroid nodules 09/09/2016 Rhinitis, nonallergic 03/30/2016 Urinary, incontinence, stress female Lumbar degenerative disc disease 016 Lumbar facet arthropathy 02/06/2016 COPD, severe 12/21/2015 Dyslipidemia, goal LDL below 100 016 Slow transit constipation 07/20/2015 IBS (irritable bowel syndrome) 10/14/201 5 GERD (gastroesophageal reflux disease) 1 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) 07/20/2015 Bilateral carpal tunnel syndrome 015 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 documented as of this encounter (statuses as of 05/21/2019) Resolved Problems Problem Noted Date Resolved Date [...] as of this encounter (statuses as of 05/21/2019) Immunizations Name Administration Dates Next Due Pneumococcal [...] Sign Reading Time Taken Comments Blood Pressure 148/80 05/19/2019 12:50 PM EDT Pulse 64 05/19/2019 12:50 PM EDT Temperature 37.1 C (98.7 F) 05/19/2019 12:50 PM E DT Respiratory Rate 16 05/19/2019 12:50 PM EDT Oxygen Saturation - - Inhaled Oxygen Concentration - - Weight 91.6 kg (202 lb) 05/19/2019 12:50 PM EDT Height - - Body Mass Index 38.17 02/05/2019 10:50 AM EDT documented in this encounter Progress Notes * Bettye Valenzuela PA-C - 05/19/2019 12:57 PM EDT Subjective Jayla Hayes is a 73 year old female. Chief Complaint Patient presents with Re-Check HPI: Here today for recheck for shortness of breath. Seen here last week on 05/12. She was treated for LLL pneumonia on 05/03/19, completed course of doxycycline. Her breathing is improving. Unless it is humid, she feels well, no shortness of breath. Today she reports she feels about the same with regard to her bowels, has not seen a lot of improvement in her bowels. Continues with abdominal cramping and diarrhea at times. She does believe it is her IBS since she has been under a lot of stress caring for her . She has stool studies ordered by GI, plans to obtain the stool kit today to complete testing. No nausea, vomiting, blood in stool. No abdominal pain. Had a visit from [facility] this morning. Pt reports she has motion sickness problem and at times feels off balance. Uses meclizine for vertigo. Was told she could have home health PT to help with her balance. PMH: Patient Active Problem List Diagnosis Code [...] Current Outpatient Medications Medication Sig Dispense Refill amLODIPine (NORVASC) 2.5 MG Tablet Take 1 [...] Every 4-6 hours as needed for cough montelukast (SINGULAIR) 10 MG Tablet Take 10 mg by mouth at bedtime. atorvaSTATin (LIPITOR) 20 MG Tablet TAKE 1 TABLET BY MOUTH DAILY. 90 Tab 1 omeprazole (PRILOSEC) 20 MG CPDR Take 1 Cap by mouth 2 times a day 30 minutes before morning and evening meals. 60 Cap 5 umeclidinium-vilanterol (ANORO ELLIPTA) 62.5-25 MCG/INH AEPB Inhale 1 Puff by mouth daily. meclizine (ANTIVERT) 25 MG Tablet TAKE 1 TABLET BY MOUTH ONCE EVERY 6HRS NEEDED FOR DIZZINESS/VERTIGO 10 Tab 0 atenolol (TENORMIN) 25 MG Tablet Take 1 Tab by mouth daily. 90 Tab 1 VENTOLIN HFA 108 (90 Base) MCG/ACT inhaler [...] D-3 1000 UNITS PO CAPS 1 daily Review of patient's allergies indicates: Allergen Reactions Adhesive Tape Sensitive to Aleve [Naproxen] Hives Ivp Dye Hives Latex Other (Please comment) Contact rash Motrin [Ibuprofen] Rash Review of Systems Constitutional: Negative. Eyes: Negative. Respiratory: Negative. Cardiovascular: Negative. Gastrointestinal: Positive for abdominal distention. Genitourinary: Negative. Neurological: Positive for dizziness. Negative for syncope, speech difficulty, weakness, light-headedness, numbness and headaches. Objective BP 148/80 | Pulse 64 | Temp (Src) 98.7 (Tympanic) | Resp 16 | Wt 202 lbs (91.627kg) | BMI 38.17 kg/m | BSA 1.99 m Physical Exam Constitutional: She is oriented to person, place, and time. She appears well- developed and well-nourished. No distress. Cardiovascular: Normal rate, regular rhythm and normal heart sounds. Exam reveals no friction rub. No murmur heard. Pulmonary/Chest: Effort normal and breath sounds normal. No respiratory distress. She has no wheezes. She has no rales. Musculoskeletal: right sided rib tenderness Neurological: She is alert and oriented to person, place, and time. Skin: She is not diaphoretic. Nursing note and vitals reviewed. 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 COPD, severe (HCC) Irritable bowel syndrome with both constipation and diarrhea Lumbar degenerative disc disease Spinal stenosis of lumbar region, unspecified whether neurogenic claudication present Primary osteoarthritis of right knee Follow Up: Return for as scheduled with PCP - Dr Cardoza on 06/01/19. | For: as scheduled with PCP - Dr Cardoza on 06/01/19 Bettye Valenzuela PA-C documented in this encounter Nursing Notes * Maria Antonia Whiteside LPN - 05/19/2019 12:54 PM EDT Here for recheck states she is about the same documented in this encounter Plan of Treatment Upcoming Encounters Date Type Specialty Care Team Description 06/01/2019 Office Visit Internal Medicine Yariel Cardoza MD [address] [place] [address] [place] [address] [phone] Scheduled Referrals Name Type Priority Associated Diagnoses Orde r Schedule HOME HEALTH REFERRAL OP Referral Within 10 days (routine) 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, unspecified laterality Gait disturbance Ordered: 05/19/2019 Health Maintenance Due Date Last Done Comments [...] as of this encounter Visit Diagnoses Diagnosis 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, unspecified laterality- Primary Gait disturbance Abnormality of gait Pulmonary hypertension (HCC) Other chronic pulmonary heart diseases HTN, goal below 140/90 Unspecified essential hypertension COPD, severe (HCC) Chronic airway obstruction, not elsewhere classified Irritable bowel syndrome with both constipation and diarrhea Lumbar degenerative disc disease Degeneration of lumbar or lumbosacral intervertebral disc Spinal stenosis of lumbar region, unspecified whether neurogenic claudication present Primary osteoarthritis of right knee Primary localized osteoarthrosis, lower leg documented in this encounter Advance Directives Documents on File Type Date Recorded 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
--- OUTSIDE RECORDS SUMMARY | 2023-06-07 08:21 | External Medical Summary | Summary of Care ---
Author Name Unknown Organization [place] [address] Care Team Providers Care Computer Applications Engineer Name Role Phone Yariel Cardoza MD Primary Care Provide r Reason for Referral * Precert (Routine) Status Reason Specialty Diagnoses / Procedures Referred By Contact Referred To Contact Pending Review Precert Cardiac Studies Diagnoses Shortness of breath Bilateral leg edema Procedures ECHO, COMPLETE (2D), TRANS-THORACIC Bettye Valenzuela PA-C [address] [place] [address] [place] [address] Reason for Visit * Reason Comments Cardiology Study Echo Encounter Details Date Type Department Care Team Description 05/21/2019 Cardiac Studies Cardiac Studies [address] [place] [address] [place], Front Desk A[facility] [address] [place] [address] [phone] Shortness of breath*; Bilateral leg edema Allergies Active Allergy Reactions Severity Noted [...] as of this encounter Progress Notes * Jeannie Washington TECH - 05/21/2019 9:33 AM EDT Echo completed today by cryptographic technician per provider order. 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
--- OUTSIDE RECORDS SUMMARY | 2023-06-07 08:21 | External Medical Summary | Summary of Care ---
Author Name Unknown Organization [place] [address] Care Team Providers Care Senior Caregiver Name Role Phone Yariel Cardoza MD Primary Care Provide r Reason for Visit * Reason Comments [facility]: Maintenance OP PT ref erral for Vestibular Manipulation Encounter Details Date Type Department Care Team Description 05/20/2019 Telephone [facility] [address] [facility] [place] [address] Deborah Matias, RN [address] [facility] [place] [address] [phone] [facility]: Maintenance (OP PT refe... Allergies Active Allergy Reactions Severity Noted Date [...] Telephone Encounter - Vanessa Jones OSA - 05/21/2019 8:53 AM EDT Outbound call to patient, lmom for patient to return call. Looks like [facility] close to patient area. * Telephone Encounter - Deborah Matias RN - 05/20/2019 9:27 AM EDT Order placed for OP PT for vestibular manipulation. Not sure what OP PT services are in pt's area. Prior to sending referral, please call PT office and be sure that they have PT to perform vestibularmanipulation. Thank you in advance for your help. t. documented in this encounter Plan of Treatment Upcoming Encounters Date Type Specialty Care Team Description 06/01/2019 Office Visit Internal Medicine Yariel Cardoza MD [address] [place] [address] [place] [address] Health Maintenance Due Date [...] on File Type Date Recorded Patient Lining Layer Expl anation Advanced Directive Advanced Directive Advanced Directive Advanced Directive Advanced Directive
--- OUTSIDE RECORDS SUMMARY | 2023-06-07 08:21 | External Medical Summary | Summary of Care ---
Author Name Unknown Organization [place] [address] Care Team Providers Care Instructional Technology Specialist Name Role Phone Yariel Cardoza MD Primary Care Provide r Reason for Visit * Reason Comments [facility]: Enrollment Encounter Details Date Type Department Care Team Description 05/14/2019 Home Visit [facility] [address] [facility] [place] [address] Morena Burton CRNP [address] [facility] [place] [address] [phone] COPD, moderate (HCC)*; HTN, goal below 140/90; Irritable bowel syndrome with both constipation and diarrhea; Restrictive lung disease; VIRA (obstructive sleep apnea); Overflow diarrhea; Lumbar degenerative disc disease; Anxiety; Nausea without vomiting; Hematuria, unspecified type Allergies Active Allergy Reactions Severity Noted Date Comments Adhesive Tape 06/29/2003 Sensitive to Naproxen Hives 05/28/2015 Ivp Dye Hives 08/20/2000 Latex Other (Please comment) 01/05/2015 Contact rash Ibuprofen Rash 01/05/2015 documented as of this encounter (statuses as of 05/14/2019) Medications Medication Sig Dispensed Refills Start Date [...] EVERY DAY 90 Tab 1 01/16/2019 Active sertraline (ZOLOFT) 25 MG Tablet TAKE 1 TABLET BY MOUTH EVERY DAY 30 Tab 5 02/23/2019 Active KLOR-CON 10 10 MEQ TBCR TAKE [...] nostril daily. 1 Inhaler 5 05/12/2019 Active documented as of this encounter (statuses as of 05/14/2019) Active Problems Problem Noted Date HTN, goal [...] as of this encounter (statuses as of 05/14/2019) Resolved Problems Problem Noted Date Resolved Date [...] as of this encounter (statuses as of 05/14/2019) Immunizations Name Administration Dates Next Due Pneumococcal [...] Sign Reading Time Taken Comments Blood Pressure 148/90 05/14/2019 10:37 AM EDT Pulse 64 05/14/2019 10:37 AM EDT Temperature 37.1 C (98.8 F) 05/14/2019 10:37 AM E DT Respiratory Rate - - Oxygen Saturation 93% 05/14/2019 10:37 AM EDT RA Inhaled Oxygen Concentration - - Weight - - Height - - Body Mass Index - - documented in this encounter Progress Notes * Morena uBrton CRNP - 05/13/2019 4:30 PM EDT [facility] Provider Visit Date: 05/14/2019 Time: 4:30 PM HPI: Jayla Hayes is a 73 year old female seen in her home for a routine initial provider visit. Saw pcp office 05/12/19--4 ED visits in the past 3 months. Most recently had headache, low back pain and hematuria. Per clinic note, head CT normal. She was seen by [facility] GI --reports intermittent diarrhea since Mother's Day. Reports she has IBS--saw pcp and given bentyl with some relief. Per GI note, she had abd/pelvic CT that was unremarkable. EGD 2018 showed gastritis and Schatzki ring. Suspected overflow diarrhea. Stool studies ordered and recommended colonoscopy but would need pulm clearance prior. Also noted anxiety could be contributory. Pt reports chronic nausea for many years. No emesis. Almost daily. Pt reports that she had anxietyattack with recent ED visit and had emesis. She is on omeprazole 05/09--headache, low back pain and hematuria. Neg head CT, CT done at that time showed 9mm stone L kidney. Low potassium and supplement given for K and mag. Recheck of levels 05/12 were WNL Note--she did see urology 04/30 and plan per note to return for cysto 05/03--headache and nausea and cough--CXR showed LLL infiltrate, mildly elevated WBC 11.8 and low potassium 2.9--felt to be d/t diarrhea. Declined admission. Neg head CT and no acute findings on abd/pelvic CT. Given doxy for LLL pneumonia Pt had colonoscopy in 2017 with polyp removal and internal hemorrhoids. Followed by pulm for mod COPD, restrictive lung disease, VIRA but does not use CPAP--she reports shecannot tolerate it. Could not tolerate trelegy. Using anora. Followed by Dr. Kunz for low back pain--had injection in April with mod relief of pain. Also reports of elevated BP--swelling of legs and wearing oxygen more. Today she reports she is notusing oxygen continuously and she is using inhalers. Echo was ordered. Is this a Transitions of Care visit? No Component Latest Ref Rng & Units 05/12/2019 BUN 6 - 20 mg/dL 15 CREATININE 0.5 - 1.0 mg/dL 0.9 E GLOM FILT RATE >60 >60.0 SODIUM 135 - 146 mmol/L 144 POTASSIUM 3.5 - 5.1 mmol/L 3.5 CHLORIDE 98 - 107 mmol/L 98 CO2 22 - 32 mmol/L 37 (H) ANION GAP 7 - 15 mmol/L 9 GLUCOSE 70 - 120 mg/dL 93 CALCIUM 8.4 - 10.2 mg/dL 9.5 MAGNESIUM 1.5 - 2.6 mg/dL 2.0 ROS: Review of Systems Constitutional: Positive for appetite change ("off and on. Sometimes eats bland diet) and chills. Negative for activity change, fatigue and fever. 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 Negative for wheezing. Uses nebulizer at least twice daily Cardiovascular: Positive for leg swelling (ankles. ). Negative for chest pain and palpitations. Gastrointestinal: Positive for nausea (uses zofran with relief). Negative for abdominal pain and vomiting. 3 BM yesterday, soft and brown. One BM today, formed--uses miralax every day since seen by GI. Using zofran with relief of nausea. Glory Jessica Genitourinary: Negative for decreased urine volume and difficulty urinating. Musculoskeletal: Negative for arthralgias, back pain and joint swelling. R leg felt heavy this am--symptom completely gone now. No numbness or weakness. Skin: Negative for color change, pallor and rash. Neurological: Positive for dizziness and light-headedness. Occasional with rapid position changes Psychiatric/Behavioral: The patient is nervous/anxious. Admits she is under a lot of stress caring for her and worrying about her own health. Physical Exam: BP 148/90 | Pulse 64 | Temp 98.8 | SaO2 93[RA[% BP Readings from Last 5 Encounters: 05/14/19 148/90 05/12/19 152/82 04/06/19 164/89 03/06/19 126/80 02/05/19 120/80 Wt Readings from Last 4 Encounters: 05/12/19 91.6 kg (202 lb) 03/06/19 93.1 kg (205 lb 4 oz) 02/05/19 94.9 kg (209 lb 2 oz) 12/01/18 95.7 kg (211 lb) Physical Exam Constitutional: She is oriented to person, place, and time. She is cooperative. No distress. Morbidly obese HENT: Head: Normocephalic. Eyes: Conjunctivae are normal. Neck: Normal range of motion. Cardiovascular: Normal rate, regular rhythm and normal heart sounds. No murmur heard. Pulmonary/Chest: Effort normal and breath sounds normal. No respiratory distress. She has no wheezes. She has no rales. Abdominal: Soft. She exhibits no distension. Bowel sounds are increased. There is no tenderness. Musculoskeletal: Normal range of motion. She exhibits no edema. Normal gait. Neurological: She is alert and oriented to person, place, and time. She exhibits normal muscle tone. Skin: Skin is warm and dry. No rash noted. No erythema. No pallor. Psychiatric: Her speech is normal and behavior is normal. Judgment and thought content normal. Her mood appears anxious (mild). Cognition and memory are normal. Is this a telehealth visit? No Assessment/Plan: 1. COPD, moderate (HCC) Uses duoneb twice daily. Continue anora. Continue follow up with pulm. 2. HTN, goal below 140/90 No med changes at this time. She continues atenolol and HCTZ 3. Irritable bowel syndrome with both constipation and diarrhea Using bentyl as needed, Keep follow up with GI 4. Restrictive lung disease Followed by pulmonary 5. VIRA (obstructive sleep apnea) Does not use CPAP--does not tolerate 6. Overflow diarrhea See phone note from today. Stool studies ordered but pt unsure of how to get stool containers or where to turn in. Request [facility] staff reach out to [facility] staff and call pt with instructions. No diarrhea yesterday or today. She is using capful miralax daily with soft stool. 7. Lumbar degenerative disc disease Followed by Dr. Kunz 8. Anxiety See phone note from today, feel pt would benefit from increase in sertraline to 50mg and monitor. 9 Nausea without vomiting Using zofran with relief. Continues to follow up with GI. 10 hematuria Followed by urology with upcoming cysto planned Goals of care--pt wants to feel better. She plans to keep all of her follow up appts. with chronic illness and she is having to care for him. Admittedly threw up in ED from panic attack. Her anxiety certainly could be contributory factor to her overall not feeling well, nausea/vomiting, elevated BP. Will consult with pcp to see if she is agreeable to increase sertraline to 50mg daily and monitor. Pt would be agreeable to this. Also advised pt that if leg heaviness reoccurs to let us know. [facility] nurse to continue to monitor. No living will is on file. Discussed and she would like full code measures including CPR, ventilator and dialysis if needed. SAMIR Mckenzie documented in this encounter Plan of Treatment Upcoming Encounters Date Type Specialty Care Team Description 05/19/2019 Home Visit [facility] Deborah Matias, RN [address] [facility] [place] [address] [phone] 05/19/2019 Office Visit Internal Medicine Bettye Valenzuela PA-C [address] [place] [address] [place] [address] [phone] 05/21/2019 Cardiac Studies Cardiac Studies [address] [place] [address] [phone] 06/01/2019 Office Visit Internal Medicine Yariel Cardoza MD [address] [place] [address] [place] [address] [phone] Health Maintenance Due Date Last Done Comments [...] of this encounter Visit Diagnoses Diagnosis COPD, moderate (HCC)- Primary Chronic airway obstruction, not elsewhere classified HTN, goal below 140/90 Unspecified essential hypertension Irritable bowel syndrome with both constipation and diarrhea Restrictive lung disease Other diseases of lung, not elsewhere classified VIRA (obstructive sleep apnea) Obstructive sleep apnea (adult) (pediatric) Overflow diarrhea Diarrhea Lumbar degenerative disc disease Degeneration of lumbar or lumbosacral intervertebral disc Anxiety Anxiety state, unspecified Nausea without vomiting Hematuria, unspecified type documented in this encounter Advance Directives Documents on File Type Date Recorded 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
--- OUTSIDE RECORDS SUMMARY | 2023-06-07 08:21 | External Medical Summary | Summary of Care ---
Author Name Unknown Organization [place] [address] Care Team Providers Care Batch And Furnace Manager Name Role Phone Yariel Cardoza MD Primary Care Provide r Reason for Referral * Evaluate & Treat - Unlimited Visits (Within 10 days (routine)) Status Reason Specialty Diagnoses / Procedures Referred By Contact Referred To Contact Pending Review Specialty Services Required Physical Therapy Diagnoses Vertigo Jessica Hanyes, DO [address] [facility] [address] Encounter Details Date Type Department Care Team Description 05/20/2019 Orders Only [facility] 132 [facility] [place] [address] Deborah Matias, RN 132 [place] [address] [phone] Vertigo* Allergies Active Allergy Reactions Severity Noted Date Comments Adhesive Tape 06/29/2003 Sensitive to Naproxen Hives 05/28/2015 Ivp Dye Hives 08/20/2000 Latex Other (Please comment) 01/05/2015 Contact rash Ibuprofen Rash 01/05/2015 documented as of this encounter (statuses as of 05/20/2019) Medications Medication Sig Dispensed Refills Start Date [...] as of this encounter (statuses as of 05/20/2019) Active Problems Problem Noted Date HTN, goal [...] as of this encounter (statuses as of 05/20/2019) Resolved Problems Problem Noted Date Resolved Date [...] as of this encounter (statuses as of 05/20/2019) Immunizations Name Administration Dates Next Due Pneumococcal [...] Encounters Date Type Specialty Care Team Description 05/21/2019 Cardiac Studies Cardiac Studies Drain, Tongue Binder [address] [place] [address] [phone] 06/01/2019 Office Visit Internal Medicine Yariel Cardoza MD [address] [place] [address] [place] [address] [phone] Scheduled Referrals Name Type Priority Associated Diagnoses Orde r Schedule PHYSICAL THERAPY REFERRAL OP Referral Within 10 days (routine) Vertigo Ordered: 05/20/2019 Health Maintenance Due Date Last Done Comments [...] as of this encounter Visit Diagnoses Diagnosis Vertigo- Primary Dizziness and giddiness documented in this encounter Advance Directives Documents on File Type Date Recorded 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
--- OUTSIDE RECORDS SUMMARY | 2023-06-07 08:21 | External Medical Summary | Summary of Care ---
Author Name Unknown Organization [place] [address] Care Team Providers Care Second Baller Name Role Phone Yariel Cardoza MD Primary Care Provide r Reason for Visit * Reason Comments [facility]: Maintenance OP PT ref erral for Vestibular Manipulation Encounter Details Date Type Department Care Team Description 05/20/2019 Telephone [facility] 132 [employer] [place] [address] Deborah Matias, RN 132 [place] [address] [phone] [facility]: Maintenance (OP PT refe... [...] to return call. Looks like [facility] close to patient area. [facility] does do PT for this they asked if patient agrees to fax to [phone]. 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
--- OUTSIDE RECORDS SUMMARY | 2023-06-07 08:21 | External Medical Summary ---
Author Name Unknown Address [facility] [place] [address] Phone Organization K01:[facility] [address] [address] Laboratory Report Ordering Provider Test Date Status MONO GAN 05/21/2019 08:00:00 Final Observation Date Value Abnormality Reference Status Source 05/21/2019 09:40 STOOL Fin al Performing Location [facility] [address] [id number]
--- OUTSIDE RECORDS SUMMARY | 2023-06-07 08:21 | External Medical Summary | Summary of Care ---
Author Name Unknown Organization [place] [address] Care Team Providers Care Dispensing Audiologist Name Role Phone Yariel Cardoza MD Primary Care Provide r Reason for Visit * Reason Comments [facility]: Enrollment Encounter Details Date Type Department Care Team Description 05/14/2019 Home Visit [facility] 132 [facility] [place] [address] Morena Burton CRNP 132 [place] [address] [phone] COPD, moderate (HCC)*; HTN, goal below 140/90; Irritable bowel syndrome with both constipation and diarrhea; Restrictive lung disease; VIRA (obstructive sleep apnea); Overflow diarrhea; Lumbar degenerative disc disease; Anxiety; Nausea without vomiting; Hematuria, unspecified type; Morbid obesity due to excess calories (HCC) Allergies Active Allergy Reactions Severity Noted Date Comments Adhesive Tape 06/29/2003 Sensitive to Naproxen Hives 05/28/2015 Ivp Dye Hives 08/20/2000 Latex Other (Please comment) 01/05/2015 Contact rash Ibuprofen Rash 01/05/2015 documented as of this encounter (statuses as of 05/19/2019) Medications Medication Sig Dispensed Refills Start Date [...] 1 Inhaler 5 05/12/2019 Active sertraline (ZOLOFT) 25 MG Tablet TAKE 1 TABLET BY MOUTH EVERY DAY 30 Tab 5 02/23/2019 05/15/20 19 Discontinued documented as of this encounter (statuses as of 05/19/2019) Active Problems Problem Noted Date HTN, goal [...] as of this encounter (statuses as of 05/19/2019) Resolved Problems Problem Noted Date Resolved Date [...] as of this encounter (statuses as of 05/19/2019) Immunizations Name Administration Dates Next Due Pneumococcal [...] Progress Notes * Morena Burton CRNP - 05/13/2019 4:30 PM EDT [facility] Provider Visit Date: 05/14/2019 Time: 4:30 PM HPI: Jayla Hayes is a 73 year old female seen in her home for a routine initial provider visit. Saw pcp office 05/12/19--4 ED visits in the past 3 months. Most recently had headache, low back pain and hematuria. Per clinic note, head CT normal. She was seen by [facility] GI --reports intermittent diarrhea since Mother's Day. Reports she has IBS--saw pcp and given bentyl with some relief. Per GI note, she had abd/pelvic CT that was unremarkable. EGD 2017 showed gastritis and Schatzki ring. Suspected overflow [...] fatigue and fever. 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 [...] containers or where to turn in. Request [facility] staff reach out to [facility] staff and call pt with instructions. No [...] Followed by urology with upcoming cysto planned 11 morbid obesity Goals of care--pt wants to feel better. [...] leg heaviness reoccurs to let us know. [facility] nurse to continue to monitor. No living will is on file. Discussed and she would like full code measures including CPR, ventilator and dialysis if needed. SAMIR Mckenzie documented in this encounter Plan of Treatment Upcoming Encounters Date Type Specialty Care Team Description 05/19/2019 Home Visit [facility] Deborah Matias, RN 132 [facility] [place] [address] 05/19/2019 Office Visit Internal Medicine Bettye Valenzuela PA-C [address] [place] [address] [place] [address] [phone] 05/21/2019 Cardiac Studies Cardiac Studies [facility] Die Fitter [address] [place] [address] [phone] 06/01/2019 Office Visit Internal Medicine Yariel Cardoza MD [address] [place] [address] [place] [address] [phone] Health Maintenance Due Date Last Done Comments [...] unspecified Nausea without vomiting Hematuria, unspecified type Morbid obesity due to excess calories (HCC) documented in this encounter Advance Directives Documents on File Type Date Recorded 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
--- OUTSIDE RECORDS SUMMARY | 2023-06-07 08:21 | External Medical Summary | Summary of Care ---
Author Name Unknown Organization [place] [address] Care Team Providers Care Retail Clerk Name Role Phone Yariel Cardoza MD Primary Care Provide r Reason for Referral * Precert (Routine) Status Reason Specialty Diagnoses / Procedures Referred By Contact Referred To Contact Pending Review Precert Cardiac Studies Diagnoses Shortness of breath Bilateral leg edema Procedures ECHO, COMPLETE (2D), TRANS-THORACIC Bettye Valenzuela PA-C [address] [place] [address] [place] [address] Reason for Visit * Reason Comments Emergency Department Follow-Up Encounter Details Date Type Department Care Team Description 05/12/2019 Office Visit Internal Medicine [address] [place] [address] Bettye Valenzuela PA-C [address] [place] [address] [place] [address] [phone] Shortness of breath*; Bilateral leg edema; Hypokalemia; Hypomagnesemia; COPD, severe (HCC); Pulmonary hypertension (HCC); Irritable bowel syndrome with both constipation and diarrhea; Pneumonia of left lower lobe due to infectious organism ([facility]) Allergies Active Allergy Reactions Severity Noted Date [...] Sign Reading Time Taken Comments Blood Pressure 152/82 05/12/2019 1:54 PM EDT Pulse 60 05/12/2019 1:54 PM EDT Temperature 36.9 C (98.5 F) 05/12/2019 1:54 PM ED T Respiratory Rate 16 05/12/2019 1:54 PM EDT Oxygen Saturation 93% 05/12/2019 1:54 PM EDT Inhaled Oxygen Concentration - - Weight 91.6 kg (202 lb) 05/12/2019 1:54 PM EDT Height - - Body Mass Index 38.17 02/05/2019 10:50 AM EDT documented in this encounter Progress Notes * Bettye Valenzuela PA-C - 05/12/2019 2:09 PM EDT Subjective Jayla Hayes is a 73 year old female. Chief Complaint Patient presents with Emergency Department Follow-Up HPI: Here today for ER follow up. Has been at [facility] ER four times over the past 3 months since 02/2019 with multiple complaints. She reports she has not been feeling well, worried there is something wrong with her. Has been under a lot of stress caring for her who is very ill, worries that ifshe is sick she will be unable to care for him. In summary she presented to [facility] ED in 02/28 and 04/03 with c/o diarrhea abdominal pain. Lab and CT abd/pelv were nondiagnostic. She has h/o IBS constipation predominant and has been taking miralax daily which helps to regulate her bowels. She saw GI this morning to follow up for her abdominal pain and diarrhea and has abd xray and stool studies ordered, including a test for C. Diff. However, she denies any diarrhea now. She had 2 solid BMs this morning and solid BM yesterday. On 05/03/19 she went to [facility] ED with c/o headache, nausea, and body aches. She was diagnosed with LLL pneumonia. Head CT was negative. CT abd/pelv showed nonobstructing L renal stone that was stable from prior CT. She was slightly hypoxic, with leukocystosis and hypokalemia. Treated with doxycyline.Did not have a follow with PCP. On 05/09 she presented to [facility] ED with headache, low back pain, and blood in urine. A head CT was normal. She thought she had a migraine but she did not have any vomiting which she usually does. She had abdominal pain. Was told she had a left kidney stone. She feels nauseated all the time. Just took tylenol today for her headache, not sure if she has a sinus infection. Today she c/o leg swelling x 2 days and using oxygen continuously x 2 days. This is new symptom, did not have at her last ER visit. She has been wearing oxygen all day over the past few days because when she would take it off it dropped to 90%, baseline 95%. Took lasix today and yesterday, did not seem to help with leg swelling. Follows with case management. BP with visiting nurse from [facility] was 190/90. Had BP readings in 200s systolic in ED. Has nurse visiting her tomorrow and will make sure to have her BP checked and report here if elevated again. PMH: Patient Active Problem List Diagnosis Code [...] Current Outpatient Medications Medication Sig Dispense Refill fluticasone (FLONASE) 50 MCG/ACT nasal spray Administer [...] BY MOUTH EVERY DAY 90 Tab 1 sertraline (ZOLOFT) 25 MG Tablet TAKE 1 TABLET BY MOUTH EVERY DAY 30 Tab 5 hydrochlorothiazide (HYDRODIURIL) 25 MG Tablet TAKE 1 [...] Motrin [Ibuprofen] Rash Review of Systems Constitutional: Positive for fatigue. Negative for chills, diaphoresis and fever. HENT: Positive for congestion, postnasal drip, rhinorrhea and sinus pressure. Negative for ear discharge, ear pain, sinus pain, sore throat, tinnitus, trouble swallowing and voice change. Respiratory: Positive for shortness of breath. Negative for apnea, cough, chest tightness and wheezing. Cardiovascular: Positive for leg swelling. Negative for chest pain and palpitations. Gastrointestinal: Positive for abdominal distention, constipation, diarrhea and nausea. Negative for abdominal pain, anal bleeding, blood in stool, rectal pain and vomiting. Genitourinary: Negative for decreased urine volume, difficulty urinating, dysuria, enuresis, flank pain, hematuria, pelvic pain and urgency. Neurological: Positive for dizziness and light-headedness. Negative for syncope, weakness and headaches. Objective BP 152/82 | Pulse 60 | Temp (Src) 98.5 (Tympanic) | Resp 16 | Wt 202 lbs (91.627kg) | BMI 38.17 kg/m | BSA 1.99 m | SaO2 93% Physical Exam Constitutional: She is oriented to person, place, and time. She appears well- developed and well-nourished. No distress. HENT: Head: Normocephalic and atraumatic. Right Ear: External ear normal. Left Ear: External ear normal. Nose: Mucosal edema and rhinorrhea present. Mouth/Throat: No oropharyngeal exudate. Neck: No JVD present. Cardiovascular: Normal rate, regular rhythm and normal heart sounds. Exam reveals no friction rub. No murmur heard. Pulmonary/Chest: Effort normal and breath sounds normal. Abdominal: Soft. She exhibits no distension. There is no tenderness. Musculoskeletal: She exhibits edema. Bilateral 1+ leg edema Lymphadenopathy: She has no cervical adenopathy. Neurological: She is alert and oriented to person, place, and time. Skin: She is not diaphoretic. Nursing note and vitals reviewed. ASSESSMENT/PLAN: Shortness of breath (Primary) - ECHO, COMPLETE (2D), TRANS-THORACIC; Future; Expected date: 05/12/2019 Complete full course of antibiotics to treat LLL pneumonia, will discuss CXR for f/u to resolution at visit next week. Bilateral leg edema - ECHO, COMPLETE (2D), TRANS-THORACIC; Future; Expected date: 05/12/2019 Take lasix 20 mg daily until office visit next week for recheck, consider increasing dose if needed. Hypokalemia - BASIC METAB PANEL, BMP; Future; Expected date: 05/12/2019 - BASIC METAB PANEL, BMP Recheck labs/potassium level. Hypomagnesemia - MAGNESIUM; Future; Expected date: 05/12/2019 - MAGNESIUM COPD, severe (HCC) Pulmonary hypertension (HCC) Irritable bowel syndrome with both constipation and diarrhea - consult with GI this morning, pt to complete labs/imaging as ordered Pneumonia of left lower lobe due to infectious organism (HCC) - complete full course of doxycycline, recheck next week Follow Up: Return in about 1 week (around 05/19/2019) for f/u. | For: f/u Bettye Valenzuela PA-C documented in this encounter Nursing Notes * Maria Antonia Whiteside LPN - 05/12/2019 1:52 PM EDT [facility] ER 8/, headache, nausea, abdominal pain, elevated bp at home, has had to use 02 all day, 02 sats were 90 Still nauseated - seeing GI documented in this encounter Plan of Treatment Upcoming Encounters Date Type Specialty Care Team Description 05/19/2019 [facility] Visit [facility] Deborah Matias, RN 132 [facility] [place] [address] 05/19/2019 Office Visit Internal Medicine Bettye Valenzuela PA-C [address] [place] [address] [place] [address] [phone] 05/21/2019 Cardiac Studies Cardiac Studies [place], Produce Inspector [place] [place] [address] [phone] 06/01/2019 Office Visit Internal Medicine Yariel Cardoza MD [address] [place] [address] [place] [address] [phone] Scheduled Orders Name Type Priority Associated Diagnoses Orde r Schedule ECHO, COMPLETE (2D), TRANS-THORACIC Echocardiology Routine Shortness of breath Bilateral leg edema Expected: 05/12/2019 (Approximate), Expires: 05/11/2020 Health Maintenance Due Date Last Done Comments [...] Diagnosis Comments BASIC METAB PANEL, BMP Routine 05/12/2019 3:02 PM EDT Hypokalemia MAGNESIUM Routine 05/12/2019 3:02 PM EDT Hypomagnesemia documented in this encounter Results * MAGNESIUM (05/12/2019 3:02 PM EDT) MAGNESIUM 2.0 1.5 - 2.6 mg/dL [facility] Specimen Performing Organization Address City/[facility] Phone Number [facility], [address] [place] [address] * BASIC METAB PANEL, BMP (05/12/2019 3:02 PM EDT) BUN 15 6 - 20 mg/dL [facility] CREATININE 0.9 Comment: GFR should be used to assess renal function.Plasma /Serum creatinine may not be able to properly reflect renal function in some cases. 0.5 - 1.0 mg/dL [facility] E GLOM FILT RATE >60.0Comment:If patient is , multiply estimated GFR by 1.159. >60 [facility] SODIUM 144 135 - 146 mmol/L [facility] POTASSIUM 3.5 3.5 - 5.1 mmol/L [facility] CHLORIDE 98 98 - 107 mmol/L [facility] CO2 37(H) 22 - 32 mmol/L [facility] ANION GAP 9 7 - 15 mmol/L [facility] GLUCOSE 93 70 - 120 mg/dL [facility] CALCIUM 9.5 8.4 - 10.2 mg/dL [facility] Specimen Performing Organization Address City/[facility] e Phone Number [facility], [address] [place] [address] documented in this encounter Visit Diagnoses Diagnosis Shortness of breath- Primary Bilateral leg edema Edema Hypokalemia Hypopotassemia Hypomagnesemia Disorders of magnesium metabolism COPD, severe (HCC) Chronic airway obstruction, not elsewhere classified Pulmonary hypertension (HCC) Other chronic pulmonary heart diseases Irritable bowel syndrome with both constipation and diarrhea Pneumonia of left lower lobe due to infectious organism (HCC) documented in this encounter Advance Directives Documents on File Type Date Recorded 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
--- OUTSIDE RECORDS SUMMARY | 2023-06-07 08:21 | External Medical Summary | Summary of Care ---
Author Name Unknown Organization [place] [address] Care Team Providers Care On Site Manager Name Role Phone Yariel Cardoza MD Primary Care Provide r Reason for Visit * Reason Comments [facility]: Enrollment Encounter Details Date Type Department Care Team Description 05/14/2019 Telephone [facility] 132 [facility] [place] [address] Morena Burton CRNP [address] [facility] [place] [address] [phone] [facility]: Enrollment Allergies Active Allergy [...] Telephone Encounter - Vanessa Jones OSA - 05/14/2019 12:00 PM EDT Outbound call to [facility] to see if they can reach out to patient. lmom for a nurse to reach out to patient. VIRA Jacobo * Telephone Encounter - Morena Burton CRNP - 05/14/2019 10:55 AM EDT Please reach out to [facility] GI--pt with confusion--she was supposed to obtain stool samples and not given collection device for this. She does not know how to obtain them or where to take them when she gets them. Please ask them to contact her with this information. documented in this encounter Plan of Treatment Upcoming Encounters Date Type Specialty Care Team Description 05/19/2019 Home Visit [facility] Deborah Matias, RN 132 [facility] [place] [address] [phone] 05/19/2019 Office Visit Internal Medicine Bettye Valenzuela PA-C [address] [place] [address] [place] [address] [phone] 05/21/2019 Cardiac Studies Cardiac Studies [facility] Hand Cigar [address] [place] [address] [phone] 06/01/2019 Office Visit Internal Medicine Yariel Cardoza MD [address] [place] [address] [place] [address] [phone] Health Maintenance Due Date Last Done Comments [...] Documents on File Type Date Recorded 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
--- OUTSIDE RECORDS SUMMARY | 2023-06-07 08:21 | External Medical Summary | Summary of Care ---
Author Name Unknown Organization [place] [address] Care Team Providers Care Ict Customer Support Officer Name Role Phone Leanne Montaño MD Primary Care Provide r Reason for Visit * Reason Comments eRx-Medication Refill Encounter Details Date Type Department Care Team Description 05/22/2019 Refill Internal Medicine [address] [address] Leanne Montaño MD [address] [place] [address] [place] [address] Dyslipidemia, goal LDL below 100 Allergies Active Allergy Reactions Severity Noted Date Comments Adhesive Tape 06/29/2003 Sensitive to Naproxen Hives 05/28/2015 Ivp Dye Hives 08/20/2000 Latex Other (Please comment) 01/05/2015 Contact rash Ibuprofen Rash 01/05/2015 documented as of this encounter (statuses as of 05/22/2019) Medications Medication Sig Dispensed Refills Start Date [...] EVERY DAY 90 Tab 0 05/22/2019 Active atorvaSTATin (LIPITOR) 20 MG TabletIndications :Dyslipidemia, goal LDL below 100 TAKE 1 TABLET BY MOUTH DAILY. 90 Tab 1 09/24/2018 05/22/20 19 Discontinued documented as of this encounter (statuses as of 05/22/2019) Active Problems Problem Noted Date HTN, goal [...] as of this encounter (statuses as of 05/22/2019) Resolved Problems Problem Noted Date Resolved Date [...] as of this encounter (statuses as of 05/22/2019) Immunizations Name Administration Dates Next Due Pneumococcal [...] encounter Miscellaneous Notes * Telephone Encounter - Nathan [facility] - 05/22/2019 2:28 PM EDT Signed Prescriptions: Disp Refills atorvaSTATin (LIPITOR) 20 MG Tablet 90 Tab 0 Sig: TAKE 1 TABLETBY MOUTH EVERY DAYAuthorizing Provider: LEANNE MONTAÑO User: NATHAN IVY------- * Telephone Encounter - Nathan Ivy [facility] - 05/22/2019 2:27 PM EDT Protocol passed, but pt is due for labs soon. Appropriate labs ordered. Thanks, Nathan Ivy, PharmD Clinical Pharmacist Telepharmacy 05/22/2019, 2:27 PM * Telephone Encounter - Nathan [facility] - 05/22/2019 2:26 PM EDT Pending Prescriptions: Disp Refills atorvaSTATin (LIPITOR) 20 MG Tablet [Phar*90 Tab 1 Sig: TAKE 1 TABLET BY MOUTH EVERY DAY Last Office Visit: 05/19/2019 Next Office Visit: 06/01/2019 Scheduled Provider(s): Leanne Montaño MD If no future appointments scheduled, and last appointment is greater than a year ago, please schedule patient for a follow-up appointment Last date the medication was ordered: 09/24/18 Patient Phone Numbers Labs: Lab Results Component Value Date/Time CREAT 0.9 05/12/2019 03:02 PM POTASSIUM 3.5 05/12/2019 03:02 PM TSH 0.69 04/17/2017 10:53 AM LDLCALC 51 07/28/2018 02:30 PM ALT 22 07/28/2018 02:30 PM HGBA1C 5.7 03/19/2017 08:05 AM documented in this encounter Plan of Treatment Upcoming Encounters Date Type Specialty Care Team Description 06/01/2019 Office Visit Internal Medicine Leanne Montaño MD [address] [place] [address] [place] [address] Scheduled Orders Name Type Priority Associated Diagnoses Orde r Schedule LIPID PANEL WITH DIRECT LDL IF TG ABOVE 150 MG/DL Lab Routine Dyslipidemia, goal LDL below 100 Expected: 06/05/2019 (Approximate), Expires: 05/22/2020 Health Maintenance Due Date Last Done Comments [...] Documents on File Type Date Recorded 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
--- OUTSIDE RECORDS SUMMARY | 2023-06-07 08:21 | External Medical Summary | Summary of Care ---
Author Name Unknown Organization [place] [address] Care Team Providers Care Data Entry Representative Name Role Phone Yariel Cardoza MD Primary Care Provide r Reason for Visit * Reason Comments [facility]: Maintenance OP PT ref erral for Vestibular Manipulation Encounter Details Date Type Department Care Team Description 05/20/2019 Telephone [facility] [place] [address] Deborah Matias, RN [address] [facility] [place] [address] [phone] [facility]: Maintenance (OP PT refe... [...] Team Description 05/21/2019 Cardiac Studies Cardiac Studies [place], Boat Assembler [address] [place] [address] [phone] 06/01/2019 Office Visit Internal Medicine Yariel Cardoza MD [address] [place] [address] [place] [address] [phone] Health Maintenance Due Date Last Done Comments [...] Documents on File Type Date Recorded Patient Circulation Man Expl anation Advanced Directive Advanced Directive Advanced Directive Advanced Directive Advanced Directive
--- OUTSIDE RECORDS SUMMARY | 2023-06-07 08:22 | External Medical Summary | Summary of Care ---
Author Name Unknown Organization [place] [address] Care Team Providers Care Geochemist Name Role Phone Yariel Cardoza MD Primary Care Provide r Reason for Visit * Reason Comments Emergency Department Follow-Up Encounter Details Date Type Department Care Team Description 05/06/2019 Telephone Internal Medicine [address] [place] [address] Yariel Cardoza MD [address] [place] [address] [place] [address] Emergency Department Follow-Up Allergies Active Allergy Reactions Severity Noted Date Comments Adhesive Tape 06/29/2003 Sensitive to Naproxen Hives 05/28/2015 Ivp Dye Hives 08/20/2000 Latex Other (Please comment) 01/05/2015 Contact rash Ibuprofen Rash 01/05/2015 documented as of this encounter (statuses as of 05/06/2019) Medications Medication Sig Dispensed Refills Start Date [...] OR WHEEZING. 360 mL 1 04/13/2019 Active documented as of this encounter (statuses as of 05/06/2019) Active Problems Problem Noted Date HTN, goal [...] as of this encounter (statuses as of 05/06/2019) Resolved Problems Problem Noted Date Resolved Date [...] as of this encounter (statuses as of 05/06/2019) Immunizations Name Administration Dates Next Due Pneumococcal [...] encounter Miscellaneous Notes * Telephone Encounter - Bettye Valenzuela PA-C - 05/06/2019 9:27 AM EDT noted * Telephone Encounter - Irma Finnegan LPN - 05/06/2019 8:06 AM EDT Emergency Department Follow Up: When was patient seen: 05/03/19 Which ED: [facility] What were they seen for: SOB, cough, headache and nausea What testing did they have done: cxr, lab work and ct scan What did ED think was wrong (dx): Pneumonia Any new medications prescribed: Doxycycline 100 mg, take 1 tablet twice daily for 7 days How is patient feeling today: feeling some better Patient concerns today: needs follow up appt-appt given for 05/13/19 after finished with antibiotic. documented in this encounter Plan of Treatment Upcoming Encounters Date Type Specialty Care Team Description 05/13/2019 Pharmacy Bag Mender, Pharmacy Reimbursement, [facility] [address] [place] [address] [place] [address] [phone] 05/13/2019 Office Visit Internal Medicine Bettye Valenzuela PA-C [address] [place] [address] [place] [address] [phone] 06/01/2019 Office Visit Internal Medicine Yariel Cardoza MD [address] [place] [address] [place] [address] [phone] Health Maintenance Due Date Last Done Comments *ADVANCE DIRECTIVE NOT ON FILE 12/23/2015 Influenza Vaccine (FLU shot) (#1) 2019 07/28/2018, 07/31/2017, 07/21/2016, Additional history exists COLONOSCOPY-EVERY 3 YRS AGES 18-100 03/26/2021 03/26/2018, 03/08/2015 DIABETES SCREEN EVERY 3 YRS-AGE 45 AND ABOVE 02/28/2022 02/28/2019, 07/28/2018, 12/22/2017, Additional history exists DXA-SCREENING EVERY 7 YRS-USE [...] Documents on File Type Date Recorded Patient Ice Hockey Coach Expl anation Advanced Directive Advanced Directive Advanced Directive Advanced Directive Advanced Directive
--- OUTSIDE RECORDS SUMMARY | 2023-06-07 08:22 | External Medical Summary | Summary of Care ---
Author Name Unknown Organization [place] [address] Care Team Providers Care Commercial Food Instructor Name Role Phone Yariel Cardoza MD Primary Care Provide r Reason for Visit * Reason Comments Referral Encounter Details Date Type Department Care Team Description 05/11/2019 Telephone Internal Medicine [address] [address] Donna Phillips RN [address] [place] [address] Referral Allergies Active Allergy Reactions Severity Noted Date Comments Adhesive Tape 06/29/2003 Sensitive to Naproxen Hives 05/28/2015 Ivp Dye Hives 08/20/2000 Latex Other (Please comment) 01/05/2015 Contact rash Ibuprofen Rash 01/05/2015 documented as of this encounter (statuses as of 05/11/2019) Medications Medication Sig Dispensed Refills Start Date [...] as of this encounter (statuses as of 05/11/2019) Active Problems Problem Noted Date HTN, goal [...] as of this encounter (statuses as of 05/11/2019) Resolved Problems Problem Noted Date Resolved Date [...] as of this encounter (statuses as of 05/11/2019) Immunizations Name Administration Dates Next Due Pneumococcal [...] Telephone Encounter - Vanessa Jones OSA - 05/11/2019 3:35 PM EDT E-mail sent to Nic to screen, once patient has been screened please reach out to patient and or to schedule enrollment visits. Patient is enrolled with [facility]. * Telephone Encounter - Donna Phillips RN - 05/11/2019 3:23 PM EDT Call placed to [email or web address] with referral placed. -pt agreeable as discussed with Deborah Matias RN who was at pt's home seeing pt's spouse -Pt has had 4 ER visit since February 2019 Donna Phillips RN, [facility] Construction Equipment Mechanic [phone] documented in this encounter Plan of Treatment Upcoming Encounters Date Type Specialty Care Team Description 05/12/2019 Office Visit Internal Medicine Bettye Valenzuela PA-C [address] [place] [address] [place] [address] [phone] 05/13/2019 Pharmacy Hunting And Fishing Guide, Pharmacy Reimbursement, [facility] [address] [place] [address] [place] [address] [phone] 06/01/2019 Office Visit Internal Medicine Yariel Cardoza MD [address] [place] [address] [place] [address] [phone] Health Maintenance Due Date Last Done Comments [...] on File Type Date Recorded Patient Manager Facility Expl anation Advanced Directive Advanced Directive Advanced Directive Advanced Directive Advanced Directive
--- OUTSIDE RECORDS SUMMARY | 2023-06-07 08:22 | External Medical Summary | Summary of Care ---
Author Name Unknown Organization [place] [address] Care Team Providers Care Mobile Application Engineer Name Role Phone Yariel Cardoza MD Primary Care Provide r Reason for Visit * Reason Comments Referral Encounter Details Date Type Department Care Team Description 05/11/2019 Telephone Internal Medicine [address] [address] Donna Phillips RN [address] [place] [address] Referral Allergies Active Allergy Reactions Severity [...] schedule enrollment visits. Patient is enrolled with [facility]. Waiting approval from about allowing Morena Burton to do enrollment on 05/14/19. MRN sent via TT for review. VIRA Jacobo * Telephone Encounter - Donna Phillips RN - 05/11/2019 3:23 PM EDT Call placed to [email or web address] with referral placed. -pt agreeable as discussed with Deborah Matias RN who was at pt's home seeing pt's spouse -Pt has had 4 ER visit since February 2019 Donna Phillips RN, [facility] Oven Builder [phone] documented in this encounter Plan of Treatment Upcoming Encounters Date Type Specialty Care Team Description 05/12/2019 Office Visit Internal Medicine Bettye Valenzuela PA-C [address] [place] [address] [place] [address] [phone] 05/13/2019 Pharmacy Dismantler, Pharmacy Reimbursement, [facility] [address] [facility] [place] [address] 06/01/2019 Office Visit Internal Medicine Yariel Cardoza MD [address] [place] [address] [place] [address] [phone] Health Maintenance Due Date Last Done Comments [...] Documents on File Type Date Recorded Patient Physical Therapy Technician Expl anation Advanced Directive Advanced Directive Advanced Directive Advanced Directive Advanced Directive
--- OUTSIDE RECORDS SUMMARY | 2023-06-07 08:22 | External Medical Summary ---
Author Name Unknown Address [address] [id number] Phone Organization K01:[facility] [address] [id number] Laboratory Report Ordering Provider Test Date Status MIGUEL CHE 05/12/2019 15:02:00 Final Observation Date Value Abnormality Reference Status Magnesium 05/12/2019 21:58 2.0 1.5-2.6 Fin al Performing Location [address] [address]
--- OUTSIDE RECORDS SUMMARY | 2023-06-07 08:22 | External Medical Summary | Summary of Care ---
Author Name Unknown Organization [place] [address] Care Team Providers Care Economics Lecturer Name Role Phone Yariel Cardoza MD Primary Care Provide r Encounter Details Date Type Department Care Team Description 05/11/2019 Documentation [facility] [address] [facility] [place] [address] [facility], Nurse [facility] [address] [place], [place] [id number] Allergies Active Allergy Reactions Severity Noted Date [...] Travel End documented as of this encounter Nursing Notes * Mackenzie Freitas LPN - 05/11/2019 3:41 PM EDT Jayla Hayes was referred as a potential candidate for enrollment in the [facility] for [facility] by: Case Management. A review of this chart was completed and Jayla is a candidate for Home Based Medical Care. documented in this encounter Plan of Treatment Upcoming Encounters Date Type Specialty Care Team Description 05/12/2019 Office Visit Internal Medicine Bettye Valenzuela PA-C [address] [place] [address] [place] [address] [phone] 05/13/2019 Pharmacy Acidizer, Pharmacy Reimbursement, [facility] [address] [place] [address] [place] [address] [phone] 06/01/2019 Office Visit Internal Medicine Yariel Cardoza MD [address] [place] [address] [place] [address] [phone] Health Maintenance Due Date Last Done Comments [...] Documents on File Type Date Recorded Patient Leather Scrubber Expl anation Advanced Directive Advanced Directive Advanced Directive Advanced Directive Advanced Directive
--- OUTSIDE RECORDS SUMMARY | 2023-06-07 08:22 | External Medical Summary | Summary of Care ---
Author Name Unknown Organization [place] [address] Care Team Providers Care Pigment Pumper Name Role Phone Yariel Cardoza MD Primary Care Provide r Encounter Details Date Type Department Care Team Description 05/12/2019 Scan Encounter Unspecified Department <No scans attached> Allergies Active Allergy Reactions Severity Noted Date Comments Adhesive Tape 06/29/2003 Sensitive to Naproxen Hives 05/28/2015 Ivp Dye Hives 08/20/2000 Latex Other (Please comment) 01/05/2015 Contact rash Ibuprofen Rash 01/05/2015 documented as of this encounter (statuses as of 05/12/2019) Medications Medication Sig Dispensed Refills Start Date [...] as of this encounter (statuses as of 05/12/2019) Active Problems Problem Noted Date HTN, goal [...] as of this encounter (statuses as of 05/12/2019) Resolved Problems Problem Noted Date Resolved Date [...] as of this encounter (statuses as of 05/12/2019) Immunizations Name Administration Dates Next Due Pneumococcal [...] Type Specialty Care Team Description 05/13/2019 Pharmacy Territory Sales Representative, Pharmacy Reimbursement, [facility] [address] [facility] [place] [address] [phone] 05/14/2019 [facility] Visit [facility] Morena Burton CRNP [address] [place] [address] [phone] 05/19/2019 Home Visit [facility] Deborah Matias, RN [address] [place] [address] [phone] 05/19/2019 Office Visit Internal Medicine Bettye Valenzuela PA-C [address] [place] [address] [place] [address] [phone] 05/21/2019 Cardiac Studies Cardiac Studies [place], Slip L[place] [place] [address] [phone] 06/01/2019 Office Visit Internal Medicine Yariel Cardoza MD [address] [place] [address] [place] [address] [phone] Health Maintenance Due Date Last Done Comments [...] Documents on File Type Date Recorded Patient Regulatory Affairs Internship Expl anation Advanced Directive Advanced Directive Advanced Directive Advanced Directive Advanced Directive
--- OUTSIDE RECORDS SUMMARY | 2023-06-07 08:22 | External Medical Summary | Summary of Care ---
Author Name Unknown Organization [facility] Address [facility] [place] [address] Care Team Providers Care Panel Coverer Name Role Phone Yariel Cardoza MD Primary Care Provide r Reason for Visit * Reason Comments Patient Assistance Program Encounter Details Date Type Department Care Team Description 05/13/2019 Pharmacy Pharmacy, Or Sujit Garcia [address] [facility] [place] [address] Coordinator, Pharmacy Reimbursement, [facility] [address] [facility] [place] [address] COPD, severe (HCC)* Allergies Active Allergy Reactions Severity Noted Date Comments Adhesive Tape 06/29/2003 Sensitive to Naproxen Hives 05/28/2015 Ivp Dye Hives 08/20/2000 Latex Other (Please comment) 01/05/2015 Contact rash Ibuprofen Rash 01/05/2015 documented as of this encounter (statuses as of 05/13/2019) Medications Medication Sig Dispensed Refills Start Date [...] as of this encounter (statuses as of 05/13/2019) Active Problems Problem Noted Date HTN, goal [...] as of this encounter (statuses as of 05/13/2019) Resolved Problems Problem Noted Date Resolved Date [...] as of this encounter (statuses as of 05/13/2019) Immunizations Name Administration Dates Next Due Pneumococcal [...] as of this encounter Progress Notes * Donna Canela, VIRA - 05/13/2019 8:30 AM EDT Follow up needs made to patient [phone] (home) , Patient Phone Numbers Coverage:GHP RX:Anoro Ellipta and Ventolin HFA Provider:Yariel Cardoza Please call patient to verify status of [employer] PAP application. Forms sent: 04/29/19 I called the patient and confirmed she did receive the application but has been sick and hasnt had time to complete it. She will complete and mail back to me. VIRA [employer] Certified Lactation Counselor 05/13/2019, 12:26 PM documented in this encounter Plan of Treatment Upcoming Encounters Date Type Specialty Care Team Description 05/14/2019 Home Visit [facility] Morena Burton CRNP [address] [place] [address] [phone] 05/19/2019 Home Visit [facility] Deborah Matias RN [address] [place] [address] [phone] 05/19/2019 Office Visit Internal Medicine Bettye Valenzuela PA-C [address] [place] [address] [place] [address] [phone] 05/21/2019 Cardiac Studies Cardiac Studies [address] [place] [address] [phone] 06/01/2019 Office Visit Internal Medicine Yariel Cardoza MD [address] [place] [address] [place] [address] [phone] Health Maintenance Due Date Last Done Comments [...] Documents on File Type Date Recorded Patient Regional Office Coordinator Expl anation Advanced Directive Advanced Directive Advanced Directive Advanced Directive Advanced Directive
--- OUTSIDE RECORDS SUMMARY | 2023-06-07 08:22 | External Medical Summary | Summary of Care ---
Author Name Unknown Organization [place] [address] Care Team Providers Care Luncheonette Manager Name Role Phone Yariel Cardoza MD Primary Care Provide r Reason for Visit * Reason Comments case management Encounter Details Date Type Department Care Team Description 05/11/2019 Telephone Internal Medicine [address] [address] Donna Phillips RN [address] [place] [address] case management Allergies Active Allergy Reactions Severity [...] encounter Miscellaneous Notes * Telephone Encounter - Donna Phillisp RN - 05/11/2019 3:15 PM EDT Call from [facility] Nurse, Deborah BP 190/90 today while visiting pt Scheduled pt to see Bettye Valenzuela PA-C for tomorrow 05/12-pt aware of date and time (pt declined appt today) Pt in ER 05/09 (also ER 05/04, 04/03 and 02/28) -ER records provided to ALEYDA BP was apparently elevated in ER Also potassium and Mg were low Pt also had blood in urine per UA, but no culture done Donna Phillips RN, [facility] Saute Chef [phone] documented in this encounter Plan of Treatment Upcoming Encounters Date Type Specialty Care Team Description 05/14/2019 Home Visit [facility] Morena Burton CRNP [address] [facility] [place] [address] [phone] 05/19/2019 Home Visit [facility] Deborah Matias RN [facility] [place] [address] [phone] 05/19/2019 Office Visit Internal Medicine Bettye Valenzuela PA-C [address] [place] [address] [place] [address] [phone] 05/21/2019 Cardiac Studies Cardiac Studies [facility] Second Mate[address] [place] [address] [phone] 06/01/2019 Office Visit Internal Medicine Yariel Cardoza MD [address] [place] [address] [place] [address] [phone] Health Maintenance Due Date Last Done Comments [...] Documents on File Type Date Recorded Patient Recreation Program Coordinator Expl anation Advanced Directive Advanced Directive Advanced Directive Advanced Directive Advanced Directive
--- OUTSIDE RECORDS SUMMARY | 2023-06-07 08:22 | External Medical Summary | Summary of Care ---
Author Name Unknown Organization [place] [address] Care Team Providers Care Chiller Tender Name Role Phone Yariel Cardoza MD Primary Care Provide r Encounter Details Date Type Department Care Team Description 05/03/2019 Scan Encounter Unspecified Department <No scans attached> Allergies Active Allergy Reactions Severity Noted Date Comments Adhesive Tape 06/29/2003 Sensitive to Naproxen Hives 05/28/2015 Ivp Dye Hives 08/20/2000 Latex Other (Please comment) 01/05/2015 Contact rash Ibuprofen Rash 01/05/2015 documented as of this encounter (statuses as of 05/04/2019) Medications Medication Sig Dispensed Refills Start Date [...] as of this encounter (statuses as of 05/04/2019) Active Problems Problem Noted Date HTN, goal [...] as of this encounter (statuses as of 05/04/2019) Resolved Problems Problem Noted Date Resolved Date [...] as of this encounter (statuses as of 05/04/2019) Immunizations Name Administration Dates Next Due Pneumococcal [...] Type Specialty Care Team Description 05/13/2019 Pharmacy Commercial Banker, Pharmacy Reimbursement, [facility] [address] [place] [address] 06/01/2019 Office Visit Internal Medicine Yariel Cardoza MD [address] [place] [address] [place] [address] [phone] Health Maintenance Due Date Last Done Comments [...] Documents on File Type Date Recorded Patient Fruit Stuffer Expl anation Advanced Directive Advanced Directive Advanced Directive Advanced Directive Advanced Directive
--- OUTSIDE RECORDS SUMMARY | 2023-06-07 08:22 | External Medical Summary | Summary of Care ---
Author Name Unknown Organization [place] [address] Care Team Providers Care Nursing Service Administrator Name Role Phone Yariel Cardoza MD Primary Care Provide r Reason for Visit * Reason Comments Test Results Encounter Details Date Type Department Care Team Description 05/13/2019 Telephone Internal Medicine [address] [place] [address] Bettye Valenzuela PA-C [address] [place] [address] [place] [address] Test Results Allergies Active [...] encounter Miscellaneous Notes * Telephone Encounter - SarkarHarmony palmer LPN - 05/13/2019 11:52 AM EDT Patient aware and receptive to instructions. * Telephone Encounter - Bettye Valenzuela PA-C - 05/13/2019 10:21 AM EDT Please notify patient her magnesium and potassium levels were normal now. Continue on lasix daily, f/u with me next week as scheduled documented in this encounter Plan of Treatment Upcoming Encounters Date Type Specialty Care Team Description 05/14/2019 Home Visit [facility] Morena Burton CRNP [address] [facility] [place] [address] [phone] 05/19/2019 [facility] Visit [facility] Deborah Matias RN [facility] [place] [address] [phone] 05/19/2019 Office Visit Internal Medicine Bettye Valenzuela PA-C [address] [place] [address] [place] [address] [phone] 05/21/2019 Cardiac Studies Cardiac Studies [facility] Geophysics [address] [place] [address] [phone] 06/01/2019 Office Visit Internal Medicine Yariel Cardoza MD [address] [place] [address] [place] [address] [phone] Health Maintenance Due Date Last Done Comments [...] on File Type Date Recorded Patient Unit Leader Expl anation Advanced Directive Advanced Directive Advanced Directive Advanced Directive Advanced Directive
--- OUTSIDE RECORDS SUMMARY | 2023-06-07 08:22 | External Medical Summary | Summary of Care ---
Author Name Unknown Organization [place] [address] Care Team Providers Care Transplant Worker Name Role Phone Yariel Cardoza MD Primary Care Provide r Encounter Details Date Type Department Care Team Description 05/09/2019 Scan Encounter Unspecified Department <No scans attached> [...] Type Specialty Care Team Description 05/13/2019 Pharmacy Manager Fire, Pharmacy Reimbursement, [facility] [address] [facility] [place] [address] [phone] 05/13/2019 Office Visit Internal Medicine Bettye Valenzuela PA-C [address] [place] [address] [place] [address] [phone] 06/01/2019 Office Visit Internal Medicine Yariel Cardoza MD [address] [place] [address] [place] [address] [phone] Health Maintenance Due Date Last Done Comments [...] Documents on File Type Date Recorded Patient Autocad Technician Expl anation Advanced Directive Advanced Directive Advanced Directive Advanced Directive Advanced Directive
--- OUTSIDE RECORDS SUMMARY | 2023-06-07 08:22 | External Medical Summary ---
Author Name Unknown Address [facility] [address] [id number] Phone Organization K01:[facility] [address] [id number] Laboratory Report Ordering Provider Test Date Status YANEMIGUEL 05/12/2019 15:02:00 Final Observation Date Value Abnormality Reference Status BUN 05/12/2019 21:58 15 6-20 Fin al Creatinine 05/12/2019 21:58 0.9 0.5-1.0 Fi nal Performing Location [facility] [address] [facility] [address]
--- OUTSIDE RECORDS SUMMARY | 2023-06-07 08:22 | External Medical Summary | Summary of Care ---
Author Name Unknown Organization [place] [address] Care Team Providers Care Payroll Tax Specialist Name Role Phone Yariel Cardoza MD Primary Care Provide r Reason for Visit * Reason Comments Referral Encounter Details Date Type Department Care Team Description 05/11/2019 Telephone Internal Medicine [address] [address] Donna Phillips RN [address] [place] [address] Referral Allergies Active Allergy Reactions Severity [...] Encounter - Vanessa Jones OSA - 05/11/2019 4:32 PM EDT patient was screened and meets. Patient is scheduled with Morena Burton(approved by Faviola) and Deborah Matias. Patient is agreeable to enrolling. Scheduled: 05/14/19 at 9:30am with Morena DAWSON 05/19/19 at 9:30am with Deborah Matias. VIRA Jacobo * Telephone Encounter - Vanessa Jones OSA - 05/11/2019 3:35 PM EDT E-mail sent to [facility] to screen, once patient has been screened please reach out to patient and or to schedule enrollment visits. Patient is enrolled with [facility]. Waiting approval from about allowing Morena Micheal to do enrollment on 05/14/19. MRN sent via TT for review. VIRA Jacobo * Telephone Encounter - Donna Phillips RN - 05/11/2019 3:23 PM EDT Call placed to [facility] with referral placed. -pt agreeable as discussed with Deborah Matias RN who was at pt's home seeing pt's spouse -Pt has had 4 ER visit since February 2019 Donna Phillisp RN, [facility] Bag Filler [phone] documented in this encounter Plan of Treatment Upcoming Encounters Date Type Specialty Care Team Description 05/12/2019 Office Visit Internal Medicine Bettye Valenzuela PA-Joey [address] [place] [address] [place] [address] [phone] 05/13/2019 Pharmacy Implementation Coordinator, Pharmacy Reimbursement, [facility] [address] [facility] [place] [address] 05/14/2019 Home Visit [facility] Morena Burton CRNP [address] [place] [address] [phone] 05/19/2019 Home Visit [facility] Deborah Matias RN [address] [place] [address] [phone] 06/01/2019 Office Visit Internal Medicine Yariel Cardoza MD [address] [place] [address] [place] [address] [phone] Health Maintenance Due Date Last Done Comments [...] Documents on File Type Date Recorded Patient Finance Attorney Expl anation Advanced Directive Advanced Directive Advanced Directive Advanced Directive Advanced Directive
--- OUTSIDE RECORDS SUMMARY | 2023-06-07 08:22 | External Medical Summary | Summary of Care ---
Author Name Unknown Organization [place] [address] Care Team Providers Care Local City Driver Name Role Phone Yariel Cardoza MD Primary Care Provide r Reason for Visit * Reason Comments case management Encounter Details Date Type Department Care Team Description 05/11/2019 Telephone Internal Medicine [address] [address] Donna Phillips RN [address] [place] [address] case management Allergies Active Allergy Reactions [...] Miscellaneous Notes * Telephone Encounter - Donna Phillips RN - 05/11/2019 11:12 AM EDT PMH: severe COPD, O2 HS and PRN, (sees Dr Soriano), pulmonary hypertension, HTN, dyslipidemia, GERD, lumbar disc disease, IBS, obesity, 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 08/17/18 [facility] admit with 3 days of cough, congestion and SOB COPD (chronic obstructive pulmonary disease): Acute on chronic respiratory failure with Hypoxia Acute COPD Exacerbation Had dysphagia -consult GI Also anxiety-multiple issues at home 08/18/18 D/C to home Prednisone taper and Levaquin 08/22-Dr Sander Blanco [facility] ER-02/28/19 04/03/19 05/04/19 05/09/19 Pt called into [facility] asking for advice about her BP Reports that she was in to the ER on 05/09 as she has not been feeling good and no one seems to be doing anything about it Says her BP was elevated to 200/120 in ER Reports that her BP this am was 204/93 confirmed that pt taking Atenolol and Hydrodiuril daily, Lasix PRN Says she has been having ongoing GI issues -constant nausea, denies vomiting, but says she vomited with CT scan due to anxiety attack -reports ongoing headaches -intermittent diarrhea, but now admits that she is constipated as of today as bowels did not move yesterday. Had small hard BM today Last "normal BM" was on 04/08 Cannot remember when she had diarrhea last-has been treating with Imodium when she has diarrhea Denies abd cramping Reports that she has a kidney stone that was discovered on ER visit Says she had blood in urine, ER did UA, but not culture Reports less frequent cough-04/24 ER visit was diagnosed with pneumonia and given Doxycycline. Reports that she took last Doxycycline yesterday. Denies fever Reports that her pulse Ox is 88 without O2 Advised pt to increase frequency of Duoneb to 4x/day and continue Anora inhaler Pt reporting swelling in her legs/feet-advised use of Lasix 20 mg today Advised intake of foods high in potassium Confirmed that pt taking Klor con daily Pt's Potassium was low in ER Offered OV today-pt declined. Reports that [facility] nurse visiting her spouse today and will have this nurse check her Offered OV tomorrow, pt declined as has GI appt with Dr Low Pt is scheduled with [facility] for 05/13 Advised to call if feel she needs sooner appt Call in 1-2 weeks Donna Phillips RN, [facility] Blood Tester Fowl [phone] documented in this encounter Plan of Treatment Upcoming Encounters Date Type Specialty Care Team Description 05/13/2019 Pharmacy Electromechanical Technician, Pharmacy Reimbursement, [facility] [address] [facility] [place] [address] [phone] 05/13/2019 Office Visit Internal Medicine Bettye Valenzulea PA-C [address] [place] [address] [place] [address] [phone] 06/01/2019 Office Visit Internal Medicine Yariel Cardoza MD [address] [place] [address] [place] [address] [phone] Health Maintenance Due Date Last Done Comments [...] on File Type Date Recorded Patient Exchange Operator Expl anation Advanced Directive Advanced Directive Advanced Directive Advanced Directive Advanced Directive
--- OUTSIDE RECORDS SUMMARY | 2023-06-07 08:23 | External Medical Summary | Summary of Care ---
Author Name Unknown Organization [place] [address] Care Team Providers Care Internet Marketing Specialist Name Role Phone Yariel Cardoza MD Primary Care Provide r Encounter Details Date Type Department Care Team Description 04/03/2019 Scan Encounter Unspecified Department <No scans attached> Allergies Active Allergy Reactions Severity Noted Date Comments Adhesive Tape 06/29/2003 Sensitive to Naproxen Hives 05/28/2015 Ivp Dye Hives 08/20/2000 Latex Other (Please comment) 01/05/2015 Contact rash Ibuprofen Rash 01/05/2015 documented as of this encounter (statuses as of 04/07/2019) Medications Medication Sig Dispensed Refills Start Date [...] EVERY DAY 90 Tab 1 01/16/2019 Active albuterol-ipratropi um (DUONEB) 2.5-0.5 MG/3ML nebulizer solutionIndications :COPD, severe (HCC) INHALE 3 MLS VIA NEBULIZER EVERY 4 HOURS NEEDED FOR COUGH, SHORTNESS OF BREATH OR WHEEZING. 360 mL 1 02/03/2019 Active sertraline (ZOLOFT) 25 MG Tablet TAKE [...] abdominal pain 120 Cap 5 03/06/2019 Active documented as of this encounter (statuses as of 04/07/2019) Active Problems Problem Noted Date HTN, goal [...] as of this encounter (statuses as of 04/07/2019) Resolved Problems Problem Noted Date Resolved Date [...] as of this encounter (statuses as of 04/07/2019) Immunizations Name Administration Dates Next Due Pneumococcal [...] Visit Internal Medicine Yariel Cardoza MD [address] [place] [address] [place] [address] Health Maintenance Due Date [...] Documents on File Type Date Recorded Patient Creative Specialist Expl anation Advanced Directive Advanced Directive Advanced Directive Advanced Directive Advanced Directive
--- OUTSIDE RECORDS SUMMARY | 2023-06-07 08:23 | External Medical Summary | Summary of Care ---
Author Name Unknown Organization [place] [address] Care Team Providers Care Ointment Mill Tender Name Role Phone Leanne Montaño MD Primary Care Provide r Reason for Visit * Reason Comments eRx-Medication Refill Encounter Details Date Type Department Care Team Description 04/12/2019 Refill Internal Medicine [address] [id number] Leanne Montaño MD [address] [place] [address] [place] [address] COPD, severe (HCC) Allergies Active Allergy Reactions Severity Noted Date Comments Adhesive Tape 06/29/2003 Sensitive to Naproxen Hives 05/28/2015 Ivp Dye Hives 08/20/2000 Latex Other (Please comment) 01/05/2015 Contact rash Ibuprofen Rash 01/05/2015 documented as of this encounter (statuses as of 04/13/2019) Medications Medication Sig Dispensed Refills Start Date [...] OR WHEEZING. 360 mL 1 04/13/2019 Active albuterol-ipratro pium (DUONEB) 2.5-0.5 MG/3ML nebulizer solutionIndicatio ns:COPD, severe (HCC) INHALE 3 MLS VIA NEBULIZER EVERY 4 HOURS NEEDED FOR COUGH, SHORTNESS OF BREATH OR WHEEZING. 360 mL 1 02/03/2019 04/12/20 19 Discontinued documented as of this encounter (statuses as of 04/13/2019) Active Problems Problem Noted Date HTN, goal [...] as of this encounter (statuses as of 04/13/2019) Resolved Problems Problem Noted Date Resolved Date [...] as of this encounter (statuses as of 04/13/2019) Immunizations Name Administration Dates Next Due Pneumococcal [...] Miscellaneous Notes * Telephone Encounter - Leanne Montaño MD - 04/13/2019 4:22 PM EDT Signed Prescriptions: Disp Refills albuterol-ipratropium (DUONEB) 2.5-0.5 MG/*360 mL 1 Sig: INHALE 3 MLS VIA NEBULIZER EVERY 4 HOURS NEEDED FOR COUGH, SHORTNESS OF BREATH OR WHEEZING. Authorizing Provider: LEANNE MONTAÑO * Telephone Encounter - Kayla Sepulveda LPN - 04/13/2019 2:53 PM EDT Pending Prescriptions: Disp Refills albuterol-ipratropium (DUONEB) 2.5-0.5 MG*360 mL 1 Sig: INHALE 3 MLS VIA NEBULIZER EVERY 4 HOURS NEEDED FOR COUGH, SHORTNESS OF BREATH OR WHEEZING. * Telephone Encounter - Kayla Sepulveda LPN - 04/13/2019 2:52 PM EDT Pending Prescriptions: Disp Refills albuterol-ipratropium (DUONEB) 2.5-0.5 MG*360 mL 1 Sig: INHALE 3 MLS VIA NEBULIZER EVERY 4 HOURS NEEDED FOR COUGH, SHORTNESS OF BREATH OR WHEEZING. Last Office Visit: 03/06/2019 Next Office Visit: 06/01/2019 Scheduled Provider(s): Leanne Montaño MD Last date the medication was ordered: 02/03/19 Patient Active Problem List Diagnosis Code Slow [...] (HCC) I27.20 HTN, goal below 140/90 I10 Labs: CREATININE-OUTSIDE LAB(MG/DL) Grisel Dt/Tm Resulted Value Status 02/28/19 03/03/19 0.76 FINAL POTASSIUM-OUTSIDE LAB(MMOL/L) Grisel Dt/Tm Resulted Value Status 02/28/19 03/03/19 3.6 FINAL TSH(uIU/mL) Grisel Dt/Tm Resulted Value Status 04/17/17 10:53A 04/17/17 0.69 FINAL LDL (CALCULATED)(mg/dL) Grisel Dt/Tm Resulted Value Status 07/28/18 2:30P 07/28/18 51 FINAL LDL DIRECT(REFLEX)(mg/dL) Grisel Dt/Tm Resulted Value Status 07/28/18 2:30P 07/28/18 FINAL Value: NOT APPLICABLE ALT(U/L) Grisel Dt/Tm Resulted Value Status 07/28/18 2:30P 07/28/18 22 FINAL Hemoglobin AIC Results: HEMOGLOBIN, A1C(%) Grisel Dt/Tm Resulted Value Status 03/19/17 8:05A 03/19/17 5.7 FINAL documented in this encounter Plan of Treatment Upcoming Encounters Date Type Specialty Care Team Description 06/01/2019 Office Visit Internal Medicine Leanne Montaño MD [address] [place] [address] [place] [address] Health Maintenance Due Date Last Done Comments *ADVANCE DIRECTIVE NOT ON FILE 12/23/2015 Influenza Vaccine (FLU shot) (#1) 2019 07/28/2018, 07/31/2017, 07/21/2016, Additional history exists COLONOSCOPY-EVERY 3 YRS AGES 18-100 03/26/2021 03/26/2018, 03/08/2015 DIABETES SCREEN EVERY 3 YRS-AGE 45 AND ABOVE 02/28/2022 02/28/2019, 07/28/2018, 12/22/2017, Additional history exists DXA-SCREENING EVERY 7 YRS-USE SMARTSET# [id number] TO ORDER 08/17/2022 08/17/2015 DTaP,Tdap,and Td Vaccines [...] on File Type Date Recorded Patient Paper Final Inspector Expl anation Advanced Directive Advanced Directive Advanced Directive Advanced Directive Advanced Directive
--- OUTSIDE RECORDS SUMMARY | 2023-06-07 08:23 | External Medical Summary | Summary of Care ---
Author Name Unknown Organization [place] [address] Care Team Providers Care Commercial Analyst Name Role Phone Yariel Cardoza MD Primary Care Provide r Reason for Visit * Reason Comments case management pain Encounter Details Date Type Department Care Team Description 04/21/2019 Telephone Care Management, [place] [address] [place] [address] Soraida Garcia, pain management specialist (pain) Allergies Active Allergy Reactions Severity Noted Date Comments Adhesive Tape 06/29/2003 Sensitive to Naproxen Hives 05/28/2015 Ivp Dye Hives 08/20/2000 Latex Other (Please comment) 01/05/2015 Contact rash Ibuprofen Rash 01/05/2015 documented as of this encounter (statuses as of 04/21/2019) Medications Medication Sig Dispensed Refills Start Date [...] as of this encounter (statuses as of 04/21/2019) Active Problems Problem Noted Date HTN, goal [...] as of this encounter (statuses as of 04/21/2019) Resolved Problems Problem Noted Date Resolved Date [...] as of this encounter (statuses as of 04/21/2019) Immunizations Name Administration Dates Next Due Pneumococcal [...] encounter Miscellaneous Notes * Telephone Encounter - Soraida Garcia RN - 04/21/2019 3:49 PM EDT Patient wanting to know what can be done for her right leg pain. Reports injection worked well for 4 days. Pain has now returned. Unable to tolerate MRI or open MRI. Forwarding to provider to review and advise. documented in this encounter Plan of Treatment Upcoming Encounters Date Type Specialty Care Team Description 06/01/2019 Office Visit Internal Medicine Yariel Cardoza MD [address] [place] [address] [place] [address] [phone] Health Maintenance Due Date Last Done Comments [...] on File Type Date Recorded Patient [employer] Emergency Services Manager Expl anation Advanced Directive Advanced Directive Advanced Directive Advanced Directive Advanced Directive
--- OUTSIDE RECORDS SUMMARY | 2023-06-07 08:23 | External Medical Summary | Summary of Care ---
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 Name Role Phone Yariel Cardoza MD Primary Care Provide r Reason for Visit * Reason Comments Back Pain * Evaluate & Treat - Unlimited Visits (Within 10 days (routine)) Status Reason Specialty Diagnoses / Procedures Referred By Contact Referred To Contact Authorized Specialty Services Required Pain Management Diagnoses Low back pain radiating to right lower extremity Spinal stenosis of lumbar region, unspecified whether neurogenic claudication present Lumbar degenerative disc disease Yariel Cardoza MD [address] [place] [address] [place] [address] Encounter Details Date Type Department Care Team Description 03/03/2019 Office Visit [facility], [facility] [address] [place] [address] [place], Todd Johnson, [address] [place] [address] [phone] Hip pain, right*; Lumbar radicular pain Allergies Active Allergy Reactions Severity Noted Date Comments Adhesive Tape 06/29/2003 Sensitive to Naproxen Hives 05/28/2015 Ivp Dye Hives 08/20/2000 Latex Other (Please comment) 01/05/2015 Contact rash Ibuprofen Rash 01/05/2015 documented as of this encounter (statuses as of 03/03/2019) Medications Medication Sig Dispensed Refills Start Date [...] OR WHEEZING. 360 mL 1 02/03/2019 Active Trospium Chloride 20 MG Tablet Take 20 mg by mouth daily. 0 01/22/2019 Active sertraline (ZOLOFT) 25 MG Tablet TAKE 1 TABLET BY MOUTH EVERY DAY 30 Tab 5 02/23/2019 Active KLOR-CON 10 10 MEQ TBCR TAKE 1 TABLET BY MOUTH EVERY DAY 90 Tab 1 02/23/2019 Active documented as of this encounter (statuses as of 03/03/2019) Active Problems Problem Noted Date HTN, goal [...] as of this encounter (statuses as of 03/03/2019) Resolved Problems Problem Noted Date Resolved Date [...] as of this encounter (statuses as of 03/03/2019) Immunizations Name Administration Dates Next Due Pneumococcal [...] as of this encounter Progress Notes * Todd Kunz, - 03/03/2019 10:14 AM EDT GENERAL HISTORY & PHYSICAL EXAMINATION - Anesthesia and Pain Service Name: Jayla Hayes Location: [facility] REFERRING PHYSICIAN: Yariel Cardoza MD Thank you for referring Jayla Hayes. CHIEF COMPLAINT: Right hip/leg pain HPI: Jayla Hayes is a 73 year old female who presents for consultation at the request of Dr. Cardoza, regarding a 9 month history of persistent pain in the right hip buttock area with some radiation at times in the groin or inner thigh. She does have consistent radiation into the lateral hip and thigh and sometimes extending below the knee. She states that in May of 2018 she was sitting in a lawn chair at the [facility] and after getting up had a little bit of discomfort which became much worse the next day. She has difficulty with any prolonged walking but also does have pain riding in a car. 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 She had an MRI of the lumbar spine about 2 years ago although she does not recall canal symptoms she had at that time. The history on the report indicates that she had difficulty weight-bearing on the right leg. This study does not report anything more than rather mild central spinal stenosis at L3-4 L4-L5. She refuses to another MRI done because of severe claustrophobic symptoms despite anxiety lytic sent an open study. She denies bowel or bladder dysfunction or obvious motor weakness. Was some recent x-rays lumbar spine completed and I did review films with her. She does have degenerative the changes throughout and there is moderate the arthritic change in the right hip greater than left. There were no dedicated hip films however. 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 BENIGN HYPERTENSION 01/28/2002 Bilateral carpal tunnel syndrome 07/20/2015 COPD (chronic obstructive pulmonary disease) (HCC) COPD, severe ([facility]) 12/21/2015 COPD, severity to be determined ([facility]) 07/20/2015 Dyslipidemia, goal LDL below 100 10/16/2015 Dyslipidemia, goal LDL below 130 08/22/2015 FAM HX-CARDIOVAS DIS NEC 01/28/2002 Generalized osteoarthritis 08/22/2015 GERD (gastroesophageal reflux disease) 07/20/2015 Hypertrophy of breast 08/31/2003 IBS (irritable bowel syndrome) 07/20/2015 Kidney disease, chronic, stage III (GFR 30-59 ml/min) ([facility]) 10/16/2015 Kidney stone Lumbar degenerative disc disease 02/06/2016 Lumbar facet arthropathy ([facility]) 02/06/2016 Lumbar spinal stenosis 02/18/2017 Mixed incontinence urge and stress (male)(female) 07/20/2015 Multiple thyroid nodules 09/09/2016 Obesity, Class II, BMI 35.0-39.9, with comorbidity (see actual BMI) 01/19/2016 Primary osteoarthritis of right knee 02/18/2017 Pulmonary hypertension ([facility]) 05/07/2017 Reflux esophagitis 01/28/2002 Slow transit constipation 07/20/2015 Thyroid nodule 09/05/2016 Tubular adenoma of colon 07/20/2015 Urge incontinence 05/03/2004 Urinary, incontinence, stress female 02/21/2016 PAST SURGICAL HISTORY: Past Surgical History: Procedure Laterality Date BIOPSY OF BREAST, OPEN 1971 benign, right, removed nipple for blocked milk glands BIOPSY OF BREAST, OPEN 1976 left, benign BREAST SURGERY PROCEDURE NEC bilateral Breast Reduction 09/20/03 BUNION CORRECTED WITH DOUBLE OSTEOTOMY 1991 right foot COLONOSCOPY, DIAGNOSTIC (RECTUM) 03/08/2015 adenomatous polyps, repeat 3 yrs/[facility] COLONOSCOPY, DIAGNOSTIC (RECTUM) 03/26/2018 adenomatous & serrated adenomatous polyps, repeat 3 yrs/[facility] EGD, FLEXIBLE, DIAGNOSTIC 01/21/2015 sm HH/[facility] EGD, FLEXIBLE, DIAGNOSTIC 07/22/2018 mild gastritis, Schatzki ring, duodenal polyp/[facility] ESOPHAGOSCOPY RIGID TRANSORAL HYPOPHARYNX ESOPHAGUS 2005 repair of Zenker's diverticulum LAPAROSCOPY; CHOLECYSTECTOMY 06/04/2016 laparoscopic cholecystectomy , [facility] Dr. Corey Faulkner MISCELLANEOUS ORDER 2001 implant - right buttocks to control bladder sphinctor MISCELLANEOUS ORDER 1999 oral surgery to fit dentures NON-IMPLANTED PELVIC FLOOR E-STIM, COMPLETE SYSTEM tens right buttock REMOVE TONSILS & ADENOIDS, UNDER 12 RMV LSN SCLP/NCK/EXT 0.6-1.0CM behind ear, many years ago TOTAL ABD HYSTERECTOMY W/WO REMOVAL OF TUBE(S) 1984 both ovaries intact, fibroids FAMILY HISTORY: Family History Problem Relation Age of Onset Heart Disorder Father CO age 55 Heart Disorder Mother CAD, 84 in '02 Arthritis Mother in fingers Diabetes Brother half brother Stroke Aunt (Unspecified) 80's Stroke Uncle (Unspecified) 60's SOCIAL HISTORY: Social History Tobacco Use Smoking status: Former Smoker Packs/day: 1.75 Years: 38.00 Pack years: 66.50 Types: Cigarettes Last attempt to quit: 10/07/1995 Years since quittin.4 Smokeless tobacco: Never Used Tobacco comment: quit in 1995 Substance Use Topics Alcohol use: No Drug use: No CURRENT MEDICATIONS: Note that discontinued and completed medications (per the MAR) continue to display for 24 hours. Ordered medications to be given in the future also display. Current Outpatient Medications Medication Sig Dispense Refill KLOR-CON 10 10 MEQ TBCR TAKE 1 [...] AEPB Inhale 1 Puff by mouth daily. atenolol (TENORMIN) 25 MG Tablet Take 1 Tab by mouth daily. 90 Tab 1 Aspirin 81 MG Tablet Take 81 mg by mouth daily. furosemide (LASIX) 20 MG Tablet TAKE 1 TABLET BY MOUTH DAILY NEEDED (SWELLING). FOR FLUID ACCUMULATION OR WEIGHT GAIN 30 Tab 5 budesonide (PULMICORT) 0.5 MG/2ML nebulizer solution INHALE ONE UNIT DOSE VIAL VIA NEBULIZER TWO TIMES A DAY. 3 VITAMIN D-3 1000 UNITS PO CAPS 1 daily Trospium Chloride 20 MG Tablet Take 20 mg by mouth daily. albuterol-ipratropium (DUONEB) 2.5-0.5 MG/3ML nebulizer solution INHALE 3 MLS VIA NEBULIZER EVERY 4HOURS NEEDED FOR COUGH, SHORTNESS OF BREATH OR WHEEZING. 360 mL 1 Dextromethorphan-guaiFENesin (CORICIDIN HBP CONGESTION/COUGH) 10-200 MG CAPS Take by mouth. Every 4-6 hours as needed for cough montelukast (SINGULAIR) 10 MG Tablet Take 10 mg by mouth at bedtime. meclizine (ANTIVERT) 25 MG Tablet TAKE 1 [...] as needed for Itching. 222 mL 3 ALLERGIES: Adhesive tape; Aleve [naproxen]; Ivp dye; Latex; and Motrin [ibuprofen] ROS: Constitutional: Negative for fatigue, fever, appetite change, unexplained weight loss and insomnia. Eyes: Negative for abnormal vision, dryness, or pain. ENT: Negative for hearing loss, tinnitus, vertigo, dizziness, sore throat or dysphagia. Respiratory: Negative for cough, sputum production, shortness of breath, dyspnea. Musculoskeletal: Positive for right hip/leg pain Neurological: Negative for headaches, fainting, seizures. Psychiatric: Negative for anxiety, depression, hallucinations, suicidal thoughts. Genitourinary: Negative for dysuria, urinary frequency or urgency, and hematuria. Hematologic/ Lymphatic: Negative for easy bleeding, bruising, or lymphadenopathy. Integumentary: Negative for dryness, alopecia, nail changes. Gastrointestinal: Negative for abdominal pain, nausea, vomiting, constipation, diarrhea, cramping, heart burn, or fecal incontinence. Endocrine: Negative for cold or heat intolerance and diaphoresis. Cardiovascular: Negative for chest pain, palpitations, ankle swelling, orthopnea. PHYSICAL EXAMINATION: Most Recent Vital Signs: There were no vitals filed for this visit. General Appearance: Patient appears to be about stated age, pleasant and cooperative with normal affect. HEENT: head normocephalic, pupils equal round and reactive to light and accommodation, EOMI, hearing intact and equal bilaterally and nose clear, throat normal Heart: regular rate and rhythm Lungs: Clear to Auscultation MS: She can stand and ambulate with a slightly antalgic gait. She has +5/5 motor function lower extremities. There are no gross sensory deficits noted. She has +1/4 Achilles +2 or 4 patellar reflexes. She has significant pain with range of motion testing of the right hip with some limitation in range of motion. There is mild tenderness over the right greater trochanter. Mood mild tenderness bilateral SI joints. There is lumbar pain with extension facet loading bilaterally. IMAGING: EXAM XR L SPINE AP AND LATERAL-02/05/2019 11:43 am HISTORY Right sided low back pain radiating down right leg. TECHNIQUE: 3 views. COMPARISON: 05/28/2015 and earlier. FINDINGS Multilevel spine DDD, at least moderate in severity at some LS levels, most prominent radiographically at the lower LS levels. Progression of spine DDD compared to earlier (2014) study. Grade 1 anterolisthesis at the L4-L5 level. At least mild OA at the hip joints, particularly on the right. Impression IMPRESSION Progression of spine DDD. ASSESSMENT: Right hip pain Right lumbar radicular pain PLAN: While she does have some degree of the radicular symptomatology her days complaint is pain around the right hip which is exacerbated significantly by range of motion testing. I think this is more in keeping with a hip problem then all coming from her back. Would like to get dedicated hip films and I will contact her once I could review results. She may ultimately require more orthopedic referral depending on the findings. Todd Kunz DO 03/03/2019 10:14 AM documented in this encounter Nursing Notes * Summer Herzog LPN - 03/03/2019 9:52 AM EDT Patient reports low back and R leg pain since May 2018 [place] No PT No MRI-claustrophobic documented in this encounter Plan of Treatment Upcoming Encounters Date Type Specialty Care Team Description 03/03/2019 Imaging Radiology Arrived 06/01/2019 Office Visit Internal Medicine Yariel Cardoza MD [address] [place] [address] [place] [address] Pending Results Name Type Priority Associated Diagnoses Date /Time XR HIP UNILAT 2-3 VIEWS INCLUDING AP PELVIS Medical Imaging Routine Hip pain, right 03/03/2019 10:30 AM EDT Health Maintenance Due Date Last Done Comments *ADVANCE DIRECTIVE NOT ON FILE 12/23/2015 COLONOSCOPY-EVERY 3 YRS AGES 18-100 03/26/2021 03/26/2018, 03/08/2015 DIABETES SCREEN EVERY 3 YRS-AGE 45 AND ABOVE 07/28/2021 07/28/2018, 12/22/2017, 09/12/2017, Additional history exists DXA-SCREENING EVERY 7 YRS-USE SMARTSET# 3348 TO ORDER 08/17/2022 08/17/2015 DTaP,Tdap,and Td Vaccines (2 - Td) 04/19/2028 04/19/2018, 05/03/2004 PNEUMOCOCCAL ADULT 65 YRS AND OVER Completed 03/28/2017, 09/21/2015 Influenza Vaccine (FLU shot) Completed , 07/31/2017, 07/21/2016, Additional history exists MENINGOCOCCAL (MENACTRA) Aged Out No longer eligible based on patient's age to complete this topic documented as of this encounter Implants Not on filedocumented as of this encounter Visit Diagnoses Diagnosis Hip pain, right- Primary Pain in joint, pelvic region and thigh Lumbar radicular pain Thoracic or lumbosacral neuritis or radiculitis, unspecified documented in this encounter Advance Directives Documents on File Type Date Recorded 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
--- OUTSIDE RECORDS SUMMARY | 2023-06-07 08:23 | External Medical Summary | Summary of Care ---
Author Name Unknown Organization [place] [address] Care Team Providers Care Implementation Consultant Name Role Phone Yariel Cardoza MD Primary Care Provide r Encounter Details Date Type Department Care Team Description 04/30/2019 Scan Encounter Unspecified Department <No scans attached> [...] Type Specialty Care Team Description 05/13/2019 Pharmacy Risk Manager, Pharmacy Reimbursement, [facility] [address] [place] [address] 06/01/2019 Office Visit Internal Medicine Yariel Cardoza MD [address] [place] [address] [place] [address] [phone] Health Maintenance Due Date Last Done Comments [...] on File Type Date Recorded Patient Marketing Assistant Manager Expl anation Advanced Directive Advanced Directive Advanced Directive Advanced Directive Advanced Directive
--- OUTSIDE RECORDS SUMMARY | 2023-06-07 08:23 | External Medical Summary | Summary of Care ---
Author Name Unknown Organization [place] [address] Care Team Providers Care Conference Manager Name Role Phone Yariel Cardoza MD Primary Care Provide r Reason for Visit * Reason Comments case management pain Encounter Details Date Type Department Care Team Description 04/21/2019 Telephone Care Management, [place] [address] [place] [address] Soraida Garcia, vp product management (pain) Allergies Active Allergy Reactions Severity Noted Date Comments Adhesive Tape 06/29/2003 Sensitive to Naproxen Hives 05/28/2015 Ivp Dye Hives 08/20/2000 Latex Other (Please comment) 01/05/2015 Contact rash Ibuprofen Rash 01/05/2015 documented as of this encounter (statuses as of 04/22/2019) Medications Medication Sig Dispensed Refills Start Date [...] as of this encounter (statuses as of 04/22/2019) Active Problems Problem Noted Date HTN, goal [...] as of this encounter (statuses as of 04/22/2019) Resolved Problems Problem Noted Date Resolved Date [...] as of this encounter (statuses as of 04/22/2019) Immunizations Name Administration Dates Next Due Pneumococcal [...] Visit Internal Medicine Yariel Cardoza MD [address] [place] [address] [place] [address] [phone] Health Maintenance Due Date Last Done Comments [...] Documents on File Type Date Recorded 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
--- OUTSIDE RECORDS SUMMARY | 2023-06-07 08:23 | External Medical Summary | Summary of Care ---
Author Name Unknown Organization [place] [address] Care Team Providers Care Grain Oilseed Or Pasture Farm Manager Name Role Phone Yariel Cardoza MD Primary Care Provide r Reason for Visit * Reason Comments Re-Check Encounter Details Date Type Department Care Team Description 03/06/2019 Office Visit Internal Medicine [address] [place] [address] Yariel Cardoza MD [address] [place] [address] [facility] [address] Irritable bowel syndrome with both constipation and diarrhea*; Viral gastroenteritis; Lumbar degenerative disc disease; Spinal stenosis of lumbar region, unspecified whether neurogenic claudication present; Hip pain, right Allergies Active Allergy Reactions Severity Noted Date Comments Adhesive Tape 06/29/2003 Sensitive to Naproxen Hives 05/28/2015 Ivp Dye Hives 08/20/2000 Latex Other (Please comment) 01/05/2015 Contact rash Ibuprofen Rash 01/05/2015 documented as of this encounter (statuses as of 03/06/2019) Medications Medication Sig Dispensed Refills Start Date [...] EVERY DAY 90 Tab 1 01/16/2019 Active albuterol-ipratro pium (DUONEB) 2.5-0.5 MG/3ML nebulizer [...] abdominal pain 120 Cap 5 03/06/2019 Active Trospium Chloride 20 MG Tablet Take 20 mg by mouth daily. 0 01/22/2019 03/06/20 19 Discontinued documented as of this encounter (statuses as of 03/06/2019) Active Problems Problem Noted Date HTN, goal [...] as of this encounter (statuses as of 03/06/2019) Resolved Problems Problem Noted Date Resolved Date [...] as of this encounter (statuses as of 03/06/2019) Immunizations Name Administration Dates Next Due Pneumococcal [...] Sign Reading Time Taken Comments Blood Pressure 126/80 03/06/2019 10:56 AM EDT Pulse 68 03/06/2019 10:56 AM EDT Temperature 36.6 C (97.9 F) 03/06/2019 10:56 AM E DT Respiratory Rate - - Oxygen Saturation - - Inhaled Oxygen Concentration - - Weight 93.1 kg (205 lb 4 oz) 03/06/2019 10:56 AM EDT Height - - Body Mass Index 38.78 02/05/2019 10:50 AM EDT documented in this encounter Progress Notes * Yariel Cardoza MD - 03/06/2019 11:16 AM EDT Subjective: Jayla Hayes is a 73 year old female. who presents for routine follow-up HPI: Brief Clinical History Ms. Hayes is a 73 year old woman last seen in Internal Medicine 4 weeks ago (02-05-19). She has h/o COPD and heart failure. Was in [facility] ED 02/28/19 with abdominal pain and diarrhea that started 02/15/19 the day after a Mother's day banquet. Has had a lot of abdominal cramping and diarrhea. Stools were black at first. Diarrhea is improving and starting to firm up now. Having some cramps but they are improved slightly. The pain was very severe for several days before she went to ED. CT scan did not show any acute changes.CBC, CMP, and UA were unremarkable. Does have history of IBS and used to take Bentyl, which helped.Does get occasional heartburn and takes PPI. No one else at the banquet got sick. Has been eating and drinking but appetite is reduced. No vomiting. Was nauseated but that has improved. Was given Zofran in ED. Stomach was really gurgling but that has also improved. No fever or chills. Saw Dr. Kunz for low back pain going down the right leg and right hip. Had right hip x-ray. Recommended to have MRI but not able to tolerate one due to claustrophobia. Has taken prednisone severaltimes and it helps while she takes it and then it comes back. PMH: Patient Active Problem List Diagnosis Code [...] Current Outpatient Medications Medication Sig Dispense Refill dicyclomine (BENTYL) 10 MG Capsule Take 1 Cap by mouth 4 times a day as needed (abdominal pain,cramping). for abdominal pain 120 Cap 5 KLOR-CON 10 10 MEQ TBCR TAKE 1 TABLET BY MOUTH EVERY DAY 90 Tab 1 sertraline (ZOLOFT) 25 MG Tablet TAKE 1 TABLET BY MOUTH EVERY DAY 30 Tab 5 albuterol-ipratropium (DUONEB) 2.5-0.5 MG/3ML nebulizer solution INHALE 3 MLS VIA NEBULIZER EVERY 4 HOURS NEEDED FOR COUGH, SHORTNESS OF BREATH OR WHEEZING. 360 mL 1 hydrochlorothiazide (HYDRODIURIL) 25 MG Tablet TAKE 1 TABLET BY MOUTH EVERY DAY 90 Tab 1 Dextromethorphan-guaiFENesin (CORICIDIN HBP CONGESTION/COUGH) 10-200 MG CAPS Take by mouth. Every 4-6 hours as needed for cough atorvaSTATin (LIPITOR) 20 MG Tablet TAKE 1 [...] Take 10 mg by mouth at bedtime. 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) COPD, severe ([facility]) 12/21/2015 COPD, severity to be determined ([facility]) 07/20/2015 Dyslipidemia, goal LDL below 100 10/16/2015 Dyslipidemia, goal LDL below 130 08/22/2015 FAM HX-CARDIOVAS DIS NEC 01/28/2002 Generalized osteoarthritis 08/22/2015 GERD (gastroesophageal reflux disease) 07/20/2015 Hypertrophy of breast 08/31/2003 IBS (irritable bowel syndrome) 07/20/2015 Kidney disease, chronic, stage III (GFR 30-59 ml/min) ([facility]) 10/16/2015 Kidney stone Lumbar degenerative disc disease 02/06/2016 Lumbar facet arthropathy ([facility]) 02/06/2016 Lumbar spinal stenosis 02/18/2017 Mixed [...] 02/21/2016 Past Surgical History: Procedure Laterality Date BIOPSY OF BREAST, OPEN 1971 benign, right, removed nipple for blocked milk glands BIOPSY OF BREAST, OPEN 1976 left, benign BREAST SURGERY PROCEDURE NEC bilateral Breast Reduction 09/20/03 BUNION CORRECTED WITH DOUBLE OSTEOTOMY 1991 right foot COLONOSCOPY, DIAGNOSTIC (RECTUM) 03/08/2015 adenomatous polyps, repeat 3 yrs/[facility] COLONOSCOPY, DIAGNOSTIC (RECTUM) 03/26/2018 adenomatous & serrated adenomatous polyps, repeat 3 yrs/[facility] EGD, FLEXIBLE, DIAGNOSTIC 01/21/2015 sm HH/[facility] EGD, FLEXIBLE, DIAGNOSTIC 07/22/2018 mild gastritis, Schatzki ring, duodenal polyp/[facility] ESOPHAGOSCOPY RIGID TRANSORAL HYPOPHARYNX ESOPHAGUS 2005 repair of Zenker's diverticulum LAPAROSCOPY; CHOLECYSTECTOMY 06/04/2016 laparoscopic cholecystectomy , [facility] Dr. Corey Faulkner MISCELLANEOUS ORDER 2001 [...] Status Relation Status Fa at age 53 [place], smoked [place] at age 89 unknown cause [...] eye pain, redness, discharge, or excessive tearing Throat/Oropharynx: No teeth or gum problems and No sore throat Respiratory: No cough, sputum, or hemoptysis, No wheezing, No shortness of breath and No recent change in breathing Cardiac: No chest pain, No shortness of breath, No dyspnea on exertion, No orthopnea, No paroxysmalnocturnal dyspnea, No edema, No palpitations and No syncope Gastrointestinal: +as per HPI Urinary: No urinary frequency, No dysuria and No hematuria Musculoskeletal: +low back and right hip pain as above Objective: BP 126/80 | Pulse 68 | Temp (Src) 97.9 (Tympanic) | Wt 205 lbs 4 oz (93.101kg) | BMI 38.78 kg/m |BSA 2 m Physical Exam: General: alert, healthy, no distress, well nourished, well developed and obese Head: Normocephalic, No masses, lesions, tenderness or abnormalities Eye Exam: PERRLA, EOMI, Conjunctiva are pink and non-injected, sclera clear Oropharynx: no exudate, no erythema, lips, buccal mucosa, and tongue normal and mucous membranes are moist Neck: supple, no adenopathy Heart: regular rate & rhythm, no murmurs and no gallops Lungs: chest symmetric with normal AP diameter, no chest deformities noted, no chest wall tenderness, lungs clear to auscultation Abdomen: abdomen soft, very mild diffuse tenderness, normal bowel sounds, no masses or organomegalyand no rebound or guarding Back: back symmetric, no curvature, no costovertebral angle tenderness, no tenderness to percussionor palpation, Some limitation of flexion Extremities: no edema, no clubbing, no cyanosis ASSESSMENT/PLAN: Irritable bowel syndrome with both constipation and diarrhea (Primary)--reviewed ED records. Patient with about 2 weeks of abdominal pain, cramping and diarrhea. CT scan negative for any acute process. Pain much improved and diarrhea resolving. Restart Bentyl for IBS. Do feel she probably had viral gastroenteritis causing flare. - dicyclomine (BENTYL) 10 MG Capsule; Take 1 Cap by mouth 4 times a day as needed (abdominal pain, cramping). for abdominal pain Viral gastroenteritis--as above. Resolving. Lumbar degenerative disc disease--following with Dr. Kunz. May have injections pending results of right hip x-ray. Spinal stenosis of lumbar region, unspecified whether neurogenic claudication present--as above. Does not feel she can tolerate an MRI. Hip pain, right--x-ray pending. Further intervention pending results per Dr. Kunz. Declines prednisone taper at this time. Follow Up: Return as scheduled. Yariel Cardoza MD documented in this encounter Nursing Notes * Gracie Martino LPN - 03/06/2019 10:52 AM EDT ER follow up for diarrhea and abd cramping. Diarrhea improving. Still has abd pain. Has restarted omeprazole. Took bentyl in past but was stopped by former PCP. documented in this encounter Plan of Treatment Upcoming Encounters Date Type Specialty Care Team Description 06/01/2019 Office Visit Internal Medicine Yariel Cardoza MD [address] [place] [address] [place] [address] Health Maintenance Due Date [...] syndrome with both constipation and diarrhea- Primary Viral gastroenteritis Intestinal infection due to other organism, not elsewhere classified Lumbar degenerative disc disease Degeneration of lumbar or lumbosacral intervertebral disc Spinal stenosis of lumbar region, unspecified whether neurogenic claudication present Hip pain, right Pain in joint, pelvic region and thigh documented in this encounter Advance Directives Documents on File Type Date Recorded Patient Cigarette Catcher Expl anation Advanced Directive Advanced Directive Advanced Directive Advanced Directive"
--- OUTSIDE RECORDS SUMMARY | 2023-06-07 08:23 | External Medical Summary | Summary of Care ---
Author Name Unknown Organization [place] [address] Care Team Providers Care Superintendent Operating Name Role Phone Yariel Cardoza MD Primary Care Provide r Reason for Visit * Reason Comments Emergency Department Follow-Up Encounter Details Date Type Department Care Team Description 04/16/2019 Telephone Internal Medicine [address] [place] [address] Yariel Cardoza MD [address] [place] [address] [place] [address] Emergency Department Follow-Up Allergies Active Allergy Reactions Severity Noted Date Comments Adhesive Tape 06/29/2003 Sensitive to Naproxen Hives 05/28/2015 Ivp Dye Hives 08/20/2000 Latex Other (Please comment) 01/05/2015 Contact rash Ibuprofen Rash 01/05/2015 documented as of this encounter (statuses as of 04/20/2019) Medications Medication Sig Dispensed Refills Start Date [...] as of this encounter (statuses as of 04/20/2019) Active Problems Problem Noted Date HTN, goal [...] as of this encounter (statuses as of 04/20/2019) Resolved Problems Problem Noted Date Resolved Date [...] as of this encounter (statuses as of 04/20/2019) Immunizations Name Administration Dates Next Due Pneumococcal [...] Telephone Encounter - Gracie Martino LPN - 04/16/2019 5:02 PM EDT I called patient. She states she was in [facility] ER on April 08. She said forget it and hung up on me. * Telephone Encounter - Gracie Martino LPN - 04/16/2019 1:40 PM EDT Patient not seen at [facility] ER on 04/08/19. Tried calling patient to find out which ER she was at. No answer. Unable to leave message. * Telephone Encounter - Gracie Martino LPN - 04/16/2019 9:48 AM EDT Called for records. * Telephone Encounter - Jose Mueller LPN - 04/16/2019 9:11 AM EDT Pt states she has a bowel culture while in the ER on 04/08 but has not heard anything on the results.States she is still having abdominal pain and diarrhea and this has been ongoing "since Mother's Day". States she followed up with Dr. Cardoza and was given a prescription for abdominal pain (bentyl), but she has not followed up since ER visits--was seen in the ER on 04/03 and 04/08. No records in chart from most recent er visit. Please obtain records and advise patient. * Telephone Encounter - Paulette Langston OSA - 04/16/2019 9:08 AM EDT Reason for patient's call: [facility] ER 04/08/19- abd pain Caller was transferred to Jose at the dedicated phone nurse line. documented in this encounter Plan of Treatment Upcoming Encounters Date Type Specialty Care Team Description 06/01/2019 Office Visit Internal Medicine Yariel Cardoza MD [address] [place] [address] [place] [address] [phone] Health Maintenance Due Date Last Done Comments [...] File Type Date Recorded Patient Quality Control Projectionist Expl anation Advanced Directive Advanced Directive Advanced Directive Advanced Directive Advanced Directive
--- OUTSIDE RECORDS SUMMARY | 2023-06-07 08:23 | External Medical Summary | Summary of Care ---
Author Name Unknown Organization [place] [address] Care Team Providers Care Manager Shop Name Role Phone Yariel Cardoza MD Primary Care Provide r Reason for Visit * Reason Comments Follow Up Encounter Details Date Type Department Care Team Description 03/13/2019 Telephone Interventional [facility], [facility] [address] [place] [address] CouTodd luu DO [address] [place] [address] [phone] Follow Up Allergies Active Allergy Reactions Severity Noted Date Comments Adhesive Tape 06/29/2003 Sensitive to Naproxen Hives 05/28/2015 Ivp Dye Hives 08/20/2000 Latex Other (Please comment) 01/05/2015 Contact rash Ibuprofen Rash 01/05/2015 documented as of this encounter (statuses as of 03/13/2019) Medications Medication Sig Dispensed Refills Start Date [...] as of this encounter (statuses as of 03/13/2019) Active Problems Problem Noted Date HTN, goal [...] as of this encounter (statuses as of 03/13/2019) Resolved Problems Problem Noted Date Resolved Date [...] as of this encounter (statuses as of 03/13/2019) Immunizations Name Administration Dates Next Due Pneumococcal [...] Miscellaneous Notes * Telephone Encounter - Summer Herzog LPN - 03/13/2019 8:26 AM EDT Patient is willing to do injection-please put order in documented in this encounter Plan of Treatment Upcoming Encounters Date Type Specialty Care Team Description 03/23/2019 Hospital Encounter Surgery Todd Kunz, DO [address] [place] [address] [phone] 03/23/2019 Surgery Surgery Todd Kunz, DO [address] [place] [address] [phone] ARTHROCENTESIS OR INJECTION MAJOR JOINT 06/01/2019 Office Visit Internal Medicine Yariel Cardoza MD [address] [place] [address] [place] [address] [phone] Health Maintenance Due Date Last Done Comments [...] Documents on File Type Date Recorded Patient Showroom Manager Expl anation Advanced Directive Advanced Directive Advanced Directive Advanced Directive
--- OUTSIDE RECORDS SUMMARY | 2023-06-07 08:23 | External Medical Summary | Summary of Care ---
Author Name Unknown Organization [place] [address] Care Team Providers Care Psychiatric Specialist Name Role Phone Yariel Cardoza MD Primary Care Provide r Reason for Visit * Reason Comments case management Annual Encounter Details Date Type Department Care Team Description 04/21/2019 Career Technical Education TeacherWire Frame Maker, [place] [address] [place] [address] Soraida Garcia, RN COPD, severe ([facility])* Allergies Active Allergy Reactions Severity [...] as of this encounter Progress Notes * Soraida Garcia, SELENE - 04/21/2019 3:54 PM EDT Case Management Assessment Is this call for a hospital, retirement or rehab facility discharge to home? No S: Annual PMH: COPD Patient reports overall she hasn't been doing well. SOB at baseline--heavy exertion. Denies any cough/congestion. Wearing 2L NC at hs. Taking inhalers as directed. Nebulizer BID, knows she can use 6x/day if needed. Reports since starting on Anoro daily her breathing has significantly improved. Has not had any recent exacerbations. Denies any edema. Has lasix PRN but hasn't needed it for 'a long time'. Does not weigh herself at home. Unsure of her baseline. Appetite not the best. Reports that she has been having issues with ongoing diarrhea since February. Has periods where it is formed but also where it is like water. Intermittent abdominal pain. Happens as soon as she wakes up and after eating.Having 5-6 episodes/day. Denies any urinary issues. Denies any falls. Had injection for right leg pain a few weeks ago. Reports it took the pain completely away for 4 days, now has returned. Resides at home with her . Independent with ADLs, ambulation. LYN referral-reports her inhalers are costly, does not know if she qualifies for any assistance PCP-message sent requesting GI referral. Patient frustrated with current treatment plan of her diarrhea, wanting referral to [facility]-Dr. Kunz made aware injection has worn off and patient requesting updated POC. Denies any additional needs at this time. Explained/reinforced role of foster care case manager. Encouraged to call with any issues or concerns. Gave direct phone number and contact information of primary CM. COPD: Pt instructed to: -Call with increased SOB, wheezing, chest tightness, increased cough, increased sputum with change in color or consistency and fever. -Wash hands often -Drink plenty of fluids -Use inhalers as directed, do not stop or skip doses -Avoid stress -Rest when tired or SOB -Avoid triggers -Clean inhalers once a week' Reports: Increased edema: denies Chest pain denies Increased shortness of breath: cough denies wheezing denies dyspnea with heavy housework (ie-sweeping or vacuuming) triggers cold/hot air exposure and weather change oxygen 2L-sleep Chills / Sweats / Fever: denies chills/sweats and denies fever Fall: denies any falls since last Care Management encounter Appetite: denies muscle cramps, dizziness, fainting denies nausea, vomiting, burning, decreased appetite Bowel: frequent, loose stools diarrhea Bladder: denies problems Medications: takes all medications as prescribed. and denies side effects Chronic Pain: right leg pain O: Phone visit for Annual. Medications: takes all medications as prescribed. and denies side effects A: Patient Centered Prioritized Goals: Patient/ caregiver demonstrates adherence to treatment plan. Identified Barriers: Older than 70 years FUNCTIONAL STATUS: (Definition - assess ability to patient to manage their own care, includes evaluation of activities of daily living, and instrumental activities of daily living, and cognitive abilities status) ADL'S - Needs Assistance With: N/A as pt is independent IADL'S - Needs Assistance With: N/A as pt is independent Cognitive and Mental Health: denies problems, alert and oriented x 3 and able to communicate, understand instructions, process information. P: Career Technical Education Teacher Interventions: Reinforce Self Management Action Plan established at previous visit Contacted managing provider PCP Notified of enrollment in CM/HM program: Yes SNP Member? No Re-evaluation of plan of care and progress towards goals achievement: Plan to call patient in 3 months to reassess and update plan of care, instructed to call Career Technical Education Teacher or Primary Care Provider with change in symptoms or as needed before next follow-up, verbalizes understanding and agrees with plan. Soraida Garcia RN Outpatient Career Technical Education Teacher documented in this encounter Plan of Treatment Upcoming Encounters Date Type Specialty Care Team Description 06/01/2019 Office Visit Internal Medicine Yariel Cardoza MD [address] [place] [address] [place] [address] Health Maintenance Due Date [...] Documents on File Type Date Recorded Patient Kiln Stoker Expl anation Advanced Directive Advanced Directive Advanced Directive Advanced Directive Advanced Directive
--- OUTSIDE RECORDS SUMMARY | 2023-06-07 08:23 | External Medical Summary | Summary of Care ---
Author Name Unknown Organization [place] [address] Care Team Providers Care Warehouse Shipping Associate Name Role Phone Yariel Cardoza MD Primary Care Provide r Reason for Visit * Reason Comments case management pain Encounter Details Date Type Department Care Team Description 04/21/2019 Telephone Care Management, [place] [address] [place] [address] Soraida Garcia, security management specialist (pain) Allergies Active Allergy Reactions [...] encounter Miscellaneous Notes * Telephone Encounter - Todd Kunz DO - 04/22/2019 7:29 AM EDT I can take a look at her in the office. She may need orthopedic evaluation. * Telephone Encounter - Soraida Garcia RN [...] Visit Internal Medicine Yariel Cardoza MD [address] [place] [address] [place] [address] [phone] Health Maintenance Due Date Last Done Comments [...] Documents on File Type Date Recorded Patient Geriatric Physical Therapist Expl anation Advanced Directive Advanced Directive Advanced Directive Advanced Directive Advanced Directive
--- OUTSIDE RECORDS SUMMARY | 2023-06-07 08:23 | External Medical Summary | Summary of Care ---
Author Name Unknown Organization [place] [address] Care Team Providers Care Data Reporting Analyst Name Role Phone Yariel Cardoza MD Primary Care Provide r Reason for Referral * Evaluate & Treat - Unlimited Visits (Within 10 days (routine)) Status Reason Specialty Diagnoses / Procedures Referred By Contact Referred To Contact Pending Review Specialty Services Required Gastroenterology Diagnoses Irritable bowel syndrome with both constipation and diarrhea Yariel Cardoza MD [address] [place] [address] [place] [address] Reason for Visit * Reason Comments case management GI referral Encounter Details Date Type Department Care Team Description 04/21/2019 Telephone Care Management, [address] [id number] Soraida Garcia, fuel management handler (GI referral) Allergies Active Allergy Reactions Severity Noted Date [...] Telephone Encounter - Yariel Cardoza MD - 04/21/2019 4:02 PM EDT OK * Telephone Encounter - Soraida Garcia RN - 04/21/2019 3:51 PM EDT Patient requesting referral to [facility]. Would like to see Dr. Low if possible. Reports she has had diarrhea since February. Having 4-5 episodes/day. Intermittent abdominal pain. Order pended for provider signature if agreeable. documented in this encounter Plan of Treatment Upcoming Encounters Date Type Specialty Care Team Description 06/01/2019 Office Visit Internal Medicine Yariel Cardoza MD [address] [place] [address] [place] [address] Scheduled Referrals Name Type Priority Associated Diagnoses Orde r Schedule GASTROENTEROLOGY REFERRAL OP Referral Within 10 days (routine) Irritable bowel syndrome with both constipation and diarrhea Ordered: 04/21/2019 Health Maintenance Due Date Last Done Comments [...] on File Type Date Recorded Patient Manager Account Management Expl anation Advanced Directive Advanced Directive Advanced Directive Advanced Directive Advanced Directive
--- OUTSIDE RECORDS SUMMARY | 2023-06-07 08:23 | External Medical Summary | Summary of Care ---
Author Name Unknown Organization [facility] Address [facility] [place] [address] Care Team Providers Care Director Of Federal Sales Name Role Phone Yariel Cardoza MD Primary Care Provide r Reason for Visit * Reason Comments Patient Assistance Program Encounter Details Date Type Department Care Team Description 04/29/2019 Pharmacy Pharmacy, Ar Sujit Garcia [address] [place] [address] Coordinator, Pharmacy Reimbursement, [facility] [address] [place] [address] COPD, severe (HCC)* Allergies Active Allergy Reactions Severity Noted Date Comments Adhesive Tape 06/29/2003 Sensitive to Naproxen Hives 05/28/2015 Ivp Dye Hives 08/20/2000 Latex Other (Please comment) 01/05/2015 Contact rash Ibuprofen Rash 01/05/2015 documented as of this encounter (statuses as of 04/29/2019) Medications Medication Sig Dispensed Refills Start Date [...] as of this encounter (statuses as of 04/29/2019) Active Problems Problem Noted Date HTN, goal [...] as of this encounter (statuses as of 04/29/2019) Resolved Problems Problem Noted Date Resolved Date [...] as of this encounter (statuses as of 04/29/2019) Immunizations Name Administration Dates Next Due Pneumococcal [...] Progress Notes * Donna Canela, VIRA - 04/29/2019 12:30 PM EDT A new referral was received from [facility]. Florin Bonilla, received patient from RN MARTHA stating patient is having difficulties affording inhalers and needs assistance with programs? Thank you. [facility] staff will discuss available assistance. Coverage: [employer] Gold RX: Anoro Ellipta and Ventolin HFA Pace: Provider: Yariel Cardoza I called the patient and will be sending PAP from [employer] ([employer] I advised will send a return envelope to return forms back to me. I will follow up in a week to check status. VIRA Joel Pharmaceutical Inspector Advanced [employer] 04/29/2019, 2:31 PM documented in this encounter Plan of Treatment Upcoming Encounters Date Type Specialty Care Team Description 05/13/2019 Pharmacy News Video Editor, Pharmacy Reimbursement, [address] [place] [address] 06/01/2019 Office Visit Internal Medicine Yariel Cardoza MD [address] [place] [address] [place] [address] Health Maintenance Due Date [...] Documents on File Type Date Recorded Patient Delinquency Prevention Social Worker Expl anation Advanced Directive Advanced Directive Advanced Directive Advanced Directive Advanced Directive
--- OUTSIDE RECORDS SUMMARY | 2023-06-07 08:23 | External Medical Summary | Summary of Care ---
Author Name Unknown Organization [place] [address] Care Team Providers Care Painter Interior Finish Name Role Phone Yariel Cardoza MD Primary Care Provide r Reason for Visit * Reason Comments case management Annual Encounter Details Date Type Department Care Team Description 04/21/2019 County Health OfficerSpray Drier Operator Helper, [place] [address] [place] [address] Soraida Garcia, RN COPD, severe ([facility])* Allergies Active Allergy Reactions Severity Noted [...] Assessment Is this call for a hospital, alf or rehab facility discharge to home? No [...] needs at this time. Explained/reinforced role of telehealth case manager. Encouraged to call with any [...] to communicate, understand instructions, process information. P: County Health Officer Interventions: Reinforce Self Management Action Plan established at previous visit Contacted managing provider PCP Notified of enrollment in CM/HM program: Yes SNP Member? No Re-evaluation of plan of care and progress towards goals achievement: Plan to call patient in 3 months to reassess and update plan of care, instructed to call County Health Officer or Primary Care Provider with change in symptoms or as needed before next follow-up, verbalizes understanding and agrees with plan. Soraida Garcia RN Outpatient County Health Officer documented in this encounter Plan of Treatment Upcoming Encounters Date Type Specialty Care Team Description 06/01/2019 Office Visit Internal Medicine Yariel Cardoza MD [address] [place] [address] [place] [address] Health Maintenance Due Date [...] Documents on File Type Date Recorded Patient Privacy Officer Expl anation Advanced Directive Advanced Directive Advanced Directive Advanced Directive Advanced Directive
--- OUTSIDE RECORDS SUMMARY | 2023-06-07 08:23 | External Medical Summary | Summary of Care ---
Author Name Unknown Organization [place] [address] Care Team Providers Care Auto Body Repairman Name Role Phone Yariel Cardoza MD Primary Care Provide r Reason for Visit * Reason Comments Emergency Department Follow-Up Encounter Details Date Type Department Care Team Description 03/03/2019 Telephone Internal Medicine [address] [place] [address] Yariel Cardoza MD [address] [place] [address] [place] [address] Emergency Department Follow-Up Allergies [...] encounter Miscellaneous Notes * Telephone Encounter - Kayla Sepulveda LPN - 03/03/2019 3:35 PM EDT Emergency Department Follow Up: When was patient seen: Saturday Which ED: [facility] What were they seen for: severe stomach ache diarrhea What testing did they have done: lab work and ct scan What did ED think was wrong (dx): Nothing found Any new medications prescribed: zofran for nausea How is patient feeling today: still have diarrrhea Patient concerns today: maybe viral Placed Saturday [address] Cardoza. * Telephone Encounter - Adrianna Angel OSA - 03/03/2019 3:34 PM EDT Reason for patient's call: Er follow up Caller was transferred to Kayla at the dedicated phone nurse line. documented in this encounter Plan of Treatment Upcoming Encounters Date Type Specialty Care Team Description 03/06/2019 Office Visit Internal Medicine Yariel Cardoza MD [address] [place] [address] [place] [address] [phone] 06/01/2019 Office Visit Internal Medicine Yariel Cardoza MD [address] [place] [address] [place] [address] [phone] Health Maintenance Due Date Last Done Comments [...] Documents on File Type Date Recorded Patient Transformer Repairer Expl anation Advanced Directive Advanced Directive Advanced Directive Advanced Directive
--- OUTSIDE RECORDS SUMMARY | 2023-06-07 08:24 | External Medical Summary | Summary of Care ---
Author Name Unknown Organization [place] [address] Care Team Providers Care Bag Making Machine Tender Name Role Phone Leanne Montaño MD Primary Care Provide r Reason for Visit * Reason Comments eRx-Medication Refill Encounter Details Date Type Department Care Team Description 02/23/2019 Refill Internal Medicine [address] [place] [address] Leanne Montaño MD [address] [place] [address] [place] [address] Allergies Active Allergy Reactions Severity Noted Date Comments Adhesive Tape 06/29/2003 Sensitive to Naproxen Hives 05/28/2015 Ivp Dye Hives 08/20/2000 Latex Other (Please comment) 01/05/2015 Contact rash Ibuprofen Rash 01/05/2015 documented as of this encounter (statuses as of 02/23/2019) Medications Medication Sig Dispensed Refills Start Date [...] EVERY DAY 90 Tab 1 02/23/2019 Active sertraline (ZOLOFT) 25 MG Tablet Take 1 Tab by mouth daily. 30 Tab 5 08/26/2018 02/24/20 19 Discontinued KLOR-CON 10 10 MEQ TBCR TAKE ONE TABLET BY MOUTH DAILY 90 Tab 1 09/02/2018 02/24/20 19 Discontinued documented as of this encounter (statuses as of 02/23/2019) Active Problems Problem Noted Date HTN, goal [...] as of this encounter (statuses as of 02/23/2019) Resolved Problems Problem Noted Date Resolved Date [...] as of this encounter (statuses as of 02/23/2019) Immunizations Name Administration Dates Next Due Pneumococcal [...] Telephone Encounter - Leanne Montaño MD - 02/23/2019 3:18 PM EDT Signed Prescriptions: Disp Refills sertraline (ZOLOFT) 25 MG Tablet 30 Tab 5 Sig: TAKE 1 TABLET BY MOUTH EVERY DAY Authorizing Provider: LEANNE MONTAÑOCON 10 10 MEQ TBCR 90 Tab 1 Sig: TAKE 1 TABLET BY MOUTH EVERY DAY Authorizing Provider: LEANNE MONTAÑO -- * Telephone Encounter - Corrina Mazariegos LPN - 02/23/2019 3:15 PM EDT Pending Prescriptions: Disp Refills sertraline (ZOLOFT) 25 MG Tablet [Pharmac*30 Tab 5 Sig: TAKE 1 TABLET BY MOUTH EVERY DAY KLOR-CON 10 10 MEQ TBCR [Pharmacy Med Nam*90 Tab 1 Sig: TAKE 1 TABLET BY MOUTH EVERY DAY * Telephone Encounter - Corrina Mazariegos LPN - 02/23/2019 3:15 PM EDT Pending Prescriptions: Disp Refills sertraline (ZOLOFT) 25 MG Tablet [Pharmac*30 Tab 5 Sig: TAKE 1 TABLET BY MOUTH EVERY DAY KLOR-CON 10 10 MEQ TBCR [Pharmacy Med Nam*90 Tab 1 Sig: TAKE 1 TABLET BY MOUTH EVERY DAY Last Office Visit: 02/05/2019 Next Office Visit: 06/01/2019 Scheduled Provider(s): Leanne Montaño MD Last date the medication was ordered: 08/26/18, 09/02/18 Patient Active Problem List Diagnosis Code Slow transit constipation K59.01 IBS (irritable bowel syndrome) K58.9 GERD (gastroesophageal reflux disease) K21.9 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 Bilateral carpal tunnel syndrome G56.03 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 Dyslipidemia, goal LDL below 100 E78.5 COPD, severe ([facility]) J44.9 Lumbar degenerative disc disease M51.36 Lumbar facet arthropathy M47.816 Urinary, incontinence, stress female N39.3 Rhinitis, nonallergic J31.0 Multiple thyroid nodules E04.2 Lumbar spinal stenosis M48.061 Primary osteoarthritis of right knee M17.11 Pulmonary hypertension ([facility]) I27.20 HTN, goal below 140/90 I10 Labs: CREATININE(mg/dL) Grisel Dt/Tm Resulted Value Status 07/28/18 2:30P 07/28/18 1.0 FINAL POTASSIUM(mmol/L) Grisel Dt/Tm Resulted Value Status 07/28/18 2:30P 07/28/18 3.8 FINAL TSH(uIU/mL) Grisel Dt/Tm Resulted Value Status [...] Date Type Specialty Care Team Description 03/03/2019 Office Visit Pain Management Todd Kunz, [address] [place] [address] [phone] 06/01/2019 Office Visit Internal Medicine Leanne Montaño MD [address] [place] [address] [place] [phone] Health Maintenance Due Date Last Done Comments [...] Documents on File Type Date Recorded Patient Him Manager Expl anation Advanced Directive Advanced Directive Advanced Directive Advanced Directive
--- OUTSIDE RECORDS SUMMARY | 2023-06-07 08:24 | External Medical Summary | Summary of Care ---
Author Name Unknown Organization [place] [address] Care Team Providers Care Sports Physiologist Name Role Phone Yariel Cardoza MD Primary Care Provide r Encounter Details Date Type Department Care Team Description 03/03/2019 Orders Only Internal Medicine [address] [address] Yariel Cardoza MD [address] [place] [address] [place] [address] Allergies Active Allergy Reactions Severity [...] Description 03/03/2019 Office Visit Pain Management Todd Kunz DO [address] [place] [address] [phone] Arrived 06/01/2019 Office Visit Internal Medicine Yariel Cardoza MD [address] [place] [address] [place] [address] Health Maintenance Due Date [...] Priority Date/Time Associated Diagnosis Comments CHEMISTRY-OUTSIDE Routine 02/28/2019 documented in this encounter Results * CHEMISTRY-OUTSIDE (02/28/2019) CREATININE-OUTSIDE LAB OUTSIDE LAB (SEE SCANNED REPORT) GFR ESTIMATED-OUTSIDE LAB OUTSIDE LAB (SEE SCANNED REPORT) POTASSIUM-OUTSIDE LAB OUTSID E LAB (SEE SCANNED REPORT) GLUCOSE-OUTSIDE LAB OUTSIDE LAB (SEE SCANNED REPORT) HOURS FASTING OUTSIDE LAB (S EE SCANNED REPORT) TRIGLYCERIDES-OUTSIDE LAB OUTSIDE LAB (SEE SCANNED REPORT) CHOLESTEROL-OUTSIDE LAB OUTSIDE LAB (SEE SCANNED REPORT) HDL-OUTSIDE LAB OUTSIDE LAB (SEE SCANNED REPORT) CHOL/HDL RATIO-OUTSIDE LAB OUTSIDE LAB (SEE SCANNED REPORT) LDL (CALCULATED)-OUTSIDE LAB OUTSIDE LAB (SEE SCANNED REPORT) LDL (DIRECT MEASURE)-OUTSIDE LAB OUTSIDE LAB (SEE SCANNED REPORT) HEMOGLOBIN, X1M-XUEMRFO LAB OUTSIDE LAB (SEE SCANNED REPORT) PHOSPHORUS-OUTSIDE LAB OUTSIDE LAB (SEE SCANNED REPORT) PTH-OUTSIDE LAB OUTSIDE LAB (SEE SCANNED REPORT) MICROALBUMIN RATIO-OUTSIDE LAB OUTSIDE LAB (SEE SCANNED REPORT) PROTEIN, UA-OUTSIDE LAB NEGATIVE NEGATIVE OUTSIDE LAB (SEE SCANNED REPORT) HEMOGLOBIN-OUTSIDE LAB OUTSIDE LAB (SEE SCANNED REPORT) CHEMISTRY COMMENT-OUTSIDE LAB Comment:SEE SCAN - ED LAB, [facility]: UA OUTSIDE LAB (SEE SCANNED REPORT) Specimen Narrative Performed At Performing Organization Address City/State/Zipcod e Phone Number OUTSIDE LAB (SEE SCANNED REPORT) documented in this encounter Advance Directives Documents on File Type Date Recorded Patient Mechanical Intern Expl anation Advanced Directive Advanced Directive Advanced Directive Advanced Directive
--- OUTSIDE RECORDS SUMMARY | 2023-06-07 08:24 | External Medical Summary | Summary of Care ---
Author Name Unknown Organization [place] [address] Care Team Providers Care Tractor Mechanic Helper Name Role Phone Yariel Cardoza MD Primary Care Provide r Encounter Details Date Type Department Care Team Description 12/11/2018 Orders Only Internal Medicine [address] [address] Yariel Cardoza MD [address] [place] [address] Allergies Active Allergy Reactions Severity Noted Date Comments Adhesive Tape 06/29/2003 Sensitive to Naproxen Hives 05/28/2015 Ivp Dye Hives 08/20/2000 Latex Other (Please comment) 01/05/2015 Contact rash Ibuprofen Rash 01/05/2015 documented as of this encounter (statuses as of 12/11/2018) Medications Medication Sig Dispensed Refills Start Date [...] evening meals. 60 Cap 5 07/17/2018 Active hydrochlorothiazide (HYDRODIURIL) 25 MG Tablet TAKE ONE TABLET BY MOUTH DAILY 90 Tab 1 07/25/2018 Active sertraline (ZOLOFT) 25 MG Tablet Take 1 Tab by mouth daily. 30 Tab 5 08/26/2018 Active KLOR-CON 10 10 MEQ TBCR TAKE ONE TABLET BY MOUTH DAILY 90 Tab 1 09/02/2018 Active albuterol-ipratropi um (DUONEB) 2.5-0.5 MG/3ML nebulizer solutionIndications :COPD, severe (HCC) INHALE 3 MLS VIA NEBULIZER EVERY 4 HOURS NEEDED FOR COUGH, SHORTNESS OF BREATH OR WHEEZING. 360 mL 1 09/11/2018 Active atorvaSTATin (LIPITOR) 20 MG TabletIndications:D yslipidemia, goal LDL below 100 TAKE 1 TABLET BY MOUTH DAILY. 90 Tab 1 09/24/2018 Active montelukast (SINGULAIR) 10 MG Tablet Take 10 mg by mouth at bedtime. 0 Active Dextromethorphan-gu aiFENesin (CORICIDIN HBP CONGESTION/COUGH) 10-200 MG CAPS Take by mouth. Every 4-6 hours as needed for cough 0 Active documented as of this encounter (statuses as of 12/11/2018) Active Problems Problem Noted Date HTN, goal [...] as of this encounter (statuses as of 12/11/2018) Resolved Problems Problem Noted Date Resolved Date [...] as of this encounter (statuses as of 12/11/2018) Immunizations Name Dates Previously Given Next Due Pneumococcal Conjugate Vacc, 13 Valent [...] Encounters Date Type Specialty Care Team Description 02/05/2019 Office Visit Internal Medicine Yariel Cardoza MD [address] [place] [address] [place] [address] Health Maintenance Due Date Last Done Comments *ADVANCE DIRECTIVE NOT ON FILE 12/23/2015 *O2 ASSESSMENT COMPLETED IN PAST YEAR FOR COPD 11/25/2018 COLONOSCOPY-EVERY 3 YRS AGES 18-100 03/26/2021 03/26/2018, [...] Associated Diagnosis Comments MAMMOGRAM SCREENING BILATERAL Routine 12/10/2018 documented in this encounter Results * MAMMOGRAM SCREENING BILATERAL (12/10/2018) Narrative Performed At Performing Organization Address City/State/Zipcod e Phone Number OUTSIDE LAB (SEE SCANNED REPORT) documented in this encounter Advance Directives Patient has advance care planning documents on file. For more information, please contact: [place] [phone]
--- OUTSIDE RECORDS SUMMARY | 2023-06-07 08:24 | External Medical Summary | Summary of Care ---
Author Name Unknown Organization [place] [address] Care Team Providers Care Induction Coordination Power Engineer Name Role Phone Yariel Cardoza MD Primary Care Provide r Reason for Referral * Evaluate & Treat - Unlimited Visits (Within 10 days (routine)) Status Reason Specialty Diagnoses / Procedures Referred By Contact Referred To Contact Authorized Specialty Services Required Urology Diagnoses Urge incontinence Yariel Cardoza MD [address] [place] [address] Reason for Visit * Reason Comments Referral Requested by Specialist Urology /Jovany/Martinez Encounter Details Date Type Department Care Team Description 12/10/2018 Telephone Internal Medicine [address] [address] Donna Phillips RN [address] [place] [address] [phone] Referral Requested by Specialist (Urology/... Allergies Active Allergy Reactions Severity Noted Date [...] Telephone Encounter - Zulema Land OSA - 12/11/2018 9:14 AM EST 01/22/19 9:[address] Manzo, [facility] Urology, [facility]. Pt aware. Referral and records faxed to [phone]. * Telephone Encounter - Josie Ryan PA-C - 12/10/2018 1:38 PM EST Order signed. * Telephone Encounter - Donna Phillips RN - 12/10/2018 12:44 PM EST Pt having ongoing, intermodal customer service issues with urinary incontinence Asking for referral to see urology Would like to see Dr Joey Manzo at the [facility] office Cannot do an appointment prior to January Referral pend Please sign if agree Thanks, Donna Phillips RN, [facility] Vertical Borer [phone] documented in this encounter Plan of Treatment Upcoming Encounters Date Type Specialty Care Team Description 02/05/2019 Office Visit Internal Medicine Yariel Cardoza MD [address] [place] [address] [place] [address] [phone] Scheduled Referrals Name Priority Associated Diagnoses Order S chedule UROLOGY REFERRAL OP Within 10 days (routine) Urge incontinence Ordered: 12/10/2018 Health Maintenance Due Date Last Done Comments [...] as of this encounter Visit Diagnoses Diagnosis Urge incontinence- Primary documented in this encounter Advance Directives Patient has advance care planning documents on file. For more information, please contact: [place] [phone]
--- OUTSIDE RECORDS SUMMARY | 2023-06-07 08:24 | External Medical Summary | Summary of Care ---
Author Name Unknown Organization [place] [address] Care Team Providers Care Field Artillery Cannoneer Name Role Phone Yariel Cardoza MD Primary Care Provide r Encounter Details Date Type Department Care Team Description 02/04/2019 Scan Encounter Unspecified Department <No scans attached> Allergies Active Allergy Reactions Severity Noted Date Comments Adhesive Tape 06/29/2003 Sensitive to Naproxen Hives 05/28/2015 Ivp Dye Hives 08/20/2000 Latex Other (Please comment) 01/05/2015 Contact rash Ibuprofen Rash 01/05/2015 documented as of this encounter (statuses as of 02/05/2019) Medications Medication Sig Dispensed Refills Start Date [...] evening meals. 60 Cap 5 07/17/2018 Active sertraline (ZOLOFT) 25 MG Tablet Take 1 Tab by mouth daily. 30 Tab 5 08/26/2018 Active KLOR-CON 10 10 MEQ TBCR TAKE ONE TABLET BY MOUTH DAILY 90 Tab 1 09/02/2018 Active atorvaSTATin (LIPITOR) 20 MG TabletIndications:D yslipidemia, [...] OR WHEEZING. 360 mL 1 02/03/2019 Active documented as of this encounter (statuses as of 02/05/2019) Active Problems Problem Noted Date HTN, goal [...] as of this encounter (statuses as of 02/05/2019) Resolved Problems Problem Noted Date Resolved Date [...] as of this encounter (statuses as of 02/05/2019) Immunizations Name Dates Previously Given Next Due [...] Office Visit Internal Medicine Yariel Cardoza MD [address] [place] [address] [place] [address] Health Maintenance Due Date [...] filedocumented as of this encounter Advance Directives Patient has advance care planning documents on file. For more information, please contact: [place] [phone]
--- OUTSIDE RECORDS SUMMARY | 2023-06-07 08:24 | External Medical Summary | Summary of Care ---
Author Name Unknown Organization [place] [address] Care Team Providers Care High School Chemistry Teacher Name Role Phone Leanne Montaño MD Primary Care Provide r Reason for Visit * Reason Comments eRx-Medication Refill Encounter Details Date Type Department Care Team Description 01/16/2019 Refill Internal Medicine [address] [place] [address] Leanne Montaño MD [address] [place] [address] [place] [address] Allergies Active Allergy Reactions Severity Noted Date Comments Adhesive Tape 06/29/2003 Sensitive to Naproxen Hives 05/28/2015 Ivp Dye Hives 08/20/2000 Latex Other (Please comment) 01/05/2015 Contact rash Ibuprofen Rash 01/05/2015 documented as of this encounter (statuses as of 01/16/2019) Medications Medication Sig Dispensed Refills Start Date [...] MOUTH DAILY 90 Tab 1 09/02/2018 Active albuterol-ipratro pium (DUONEB) 2.5-0.5 MG/3ML nebulizer solutionIndicatio ns:COPD, severe (HCC) INHALE 3 MLS VIA NEBULIZER EVERY 4 HOURS NEEDED FOR COUGH, SHORTNESS OF BREATH OR WHEEZING. 360 mL 1 09/11/2018 Active atorvaSTATin (LIPITOR) 20 MG TabletIndications :Dyslipidemia, [...] EVERY DAY 90 Tab 1 01/16/2019 Active hydrochlorothiazi de (HYDRODIURIL) 25 MG Tablet TAKE ONE TABLET BY MOUTH DAILY 90 Tab 1 07/25/2018 01/17/20 19 Discontinued documented as of this encounter (statuses as of 01/16/2019) Active Problems Problem Noted Date HTN, goal [...] as of this encounter (statuses as of 01/16/2019) Resolved Problems Problem Noted Date Resolved Date [...] as of this encounter (statuses as of 01/16/2019) Immunizations Name Dates Previously Given Next Due [...] Telephone Encounter - Leanne Montaño MD - 01/16/2019 9:13 AM EDT Signed Prescriptions: Disp Refills hydrochlorothiazide (HYDRODIURIL) 25 MG Ta*90 Tab 1 Sig: TAKE 1 TABLET BY MOUTH EVERY DAY Authorizing Provider: LEANNE MONTAÑO * Telephone Encounter - Colleen Strong LPN - 01/16/2019 8:39 AM EDT Pending Prescriptions: Disp Refills hydrochlorothiazide (HYDRODIURIL) 25 MG T*90 Tab 1 Sig: TAKE 1 TABLET BY MOUTH EVERY DAY * Telephone Encounter - Colleen Strong LPN - 01/16/2019 8:38 AM EDT Pending Prescriptions: Disp Refills hydrochlorothiazide (HYDRODIURIL) 25 MG T*90 Tab 1 Sig: TAKE 1 TABLET BY MOUTH EVERY DAY Last Office Visit: 12/01/2018 Next Office Visit: 02/05/2019 Scheduled Provider(s): Leanne Montaño MD If no future appointments scheduled, and last appointment is greater than a year ago, please schedule patient for a follow-up appointment Last date the medication was ordered: 07/25/18 Patient Phone Numbers Labs: Lab Results Component Value Date/Time CREAT 1.0 07/28/2018 02:30 PM POTASSIUM 3.8 07/28/2018 02:30 PM TSH 0.69 04/17/2017 10:53 AM LDLCALC 51 07/28/2018 02:30 PM ALT 22 07/28/2018 02:30 PM HGBA1C 5.7 03/19/2017 08:05 AM documented in this encounter Plan of Treatment Upcoming Encounters Date Type Specialty Care Team Description 02/05/2019 Office Visit Internal Medicine Sony, Leanne Perea MD [address] [place] [address] [place] [address] [phone] Health Maintenance Due Date Last Done Comments [...] For more information, please contact: [place] [phone]
--- OUTSIDE RECORDS SUMMARY | 2023-06-07 08:24 | External Medical Summary | Summary of Care ---
Author Name Unknown Organization [place] [address] Care Team Providers Care Emt Name Role Phone Leanne Cardoza MD Primary Care Provide r Reason for Visit * Reason Comments eRx-Medication Refill Encounter Details Date Type Department Care Team Description 02/02/2019 Refill Internal Medicine [address] [place] [address] Leanne Cardoza MD [address] [place] [address] [place] [address] COPD, severe (HCC) Allergies Active Allergy Reactions Severity Noted Date Comments Adhesive Tape 06/29/2003 Sensitive to Naproxen Hives 05/28/2015 Ivp Dye Hives 08/20/2000 Latex Other (Please comment) 01/05/2015 Contact rash Ibuprofen Rash 01/05/2015 documented as of this encounter (statuses as of 02/03/2019) Medications Medication Sig Dispensed Refills Start Date [...] 1 09/02/2018 Active atorvaSTATin (LIPITOR) 20 MG TabletIndications :Dyslipidemia, [...] OR WHEEZING. 360 mL 1 02/03/2019 Active albuterol-ipratro pium (DUONEB) 2.5-0.5 MG/3ML nebulizer solutionIndicatio ns:COPD, severe (HCC) INHALE 3 MLS VIA NEBULIZER EVERY 4 HOURS NEEDED FOR COUGH, SHORTNESS OF BREATH OR WHEEZING. 360 mL 1 09/11/2018 02/03/20 19 Discontinued documented as of this encounter (statuses as of 02/03/2019) Active Problems Problem Noted Date HTN, goal [...] as of this encounter (statuses as of 02/03/2019) Resolved Problems Problem Noted Date Resolved Date [...] as of this encounter (statuses as of 02/03/2019) Immunizations Name Dates Previously Given Next Due [...] Telephone Encounter - Leanne Cardoza MD - 02/03/2019 1:26 PM EDT Signed Prescriptions: Disp Refills albuterol-ipratropium (DUONEB) 2.5-0.5 MG/*360 mL 1 Sig: INHALE 3 MLS VIA NEBULIZER EVERY 4 HOURS NEEDED FOR COUGH, SHORTNESS OF BREATH OR WHEEZING. Authorizing Provider: LEANNE CARDOZA * Telephone Encounter - Harmony Sarkar LPN - 02/03/2019 1:03 PM EDT Pending Prescriptions: Disp Refills albuterol-ipratropium (DUONEB) 2.5-0.5 MG*360 mL 1 Sig: INHALE 3 MLS VIA NEBULIZER EVERY 4 HOURS NEEDED FOR COUGH, SHORTNESS OF BREATH OR WHEEZING. * Telephone Encounter - Kayla Sepulveda LPN - 02/03/2019 12:45 PM EDT Pending Prescriptions: Disp Refills albuterol-ipratropium (DUONEB) 2.5-0.5 MG*360 mL 3 Sig: INHALE 3 MLS VIA NEBULIZER EVERY 4 HOURS NEEDED FOR COUGH, SHORTNESS OF BREATH OR WHEEZING. * Telephone Encounter - Kayla Sepulveda LPN - 02/03/2019 12:40 PM EDT Pending Prescriptions: Disp Refills albuterol-ipratropium (DUONEB) 2.5-0.5 MG*360 mL 1 Sig: INHALE 3 MLS VIA NEBULIZER EVERY 4 HOURS NEEDED FOR COUGH, SHORTNESS OF BREATH OR WHEEZING. Last Office Visit: 12/01/2018 Next Office Visit: 02/05/2019 Scheduled Provider(s): Leanne Cardoza MD Last date the medication was ordered: 09/11/18 Patient Active Problem List Diagnosis Code Slow [...] Status 07/28/18 2:30P 07/28/18 1.0 FINAL POTASSIUM(mmol/L) Griesl Dt/Tm Resulted Value Status 07/28/18 2:30P 07/28/18 [...] Team Description 02/05/2019 Office Visit Internal Medicine Leanne Cardoza MD [address] [place] [address] [place] [address] Health Maintenance Due Date [...] classified documented in this encounter Advance Directives Patient has advance care planning documents on file. For more information, please contact: [place] [id number]
--- OUTSIDE RECORDS SUMMARY | 2023-06-07 08:24 | External Medical Summary | Summary of Care ---
Author Name Unknown Organization [place] [address] Care Team Providers Care Cloud Engagement Partner Name Role Phone Yariel Cardoza MD Primary [...] Lumbar degenerative disc disease Yariel Cardoza MD [address] [place] [address] [place] [id number] Reason for Visit * Reason Comments Follow Up Encounter Details Date Type Department Care Team Description 02/05/2019 Office Visit Internal Medicine [address] [id number] Yariel Cardoza MD [address] [place] [address] [place] [address] Low back pain radiating to right lower extremity*; Risk and functional assessment; COPD, severe (HCC); Pulmonary hypertension (HCC); HTN, goal below 140/90; Dyslipidemia, goal LDL below 100; Spinal stenosis of lumbar region, unspecified whether neurogenic claudication present; Lumbar degenerative disc disease; Multiple thyroid nodules; Foreign body (FB) in soft tissue Allergies Active Allergy Reactions Severity Noted Date [...] mg by mouth daily. 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 [...] Vital Signs Vital Sign Reading Time Taken Blood Pressure 120/80 02/05/2019 10:50 AM EDT Pulse 62 02/05/2019 10:50 AM EDT Temperature 36 C (96.8 F) 02/05/2019 10: 50 AM EDT Respiratory Rate 95 02/05/2019 10:5 0 AM EDT Oxygen Saturation 95% 02/05/2019 10: 50 AM EDT Inhaled Oxygen Concentration - - Weight 94.9 kg (209 lb 2 oz) 02/05/2019 10:50 AM EDT Height 154.9 cm (5' 1") 02/05/2019 10:5 0 AM EDT Body Mass Index 39.51 02/05/2019 10:50 AM EDT documented in this encounter Patient Instructions * Patient Instructions* Gracie Martino LPN - 02/05/2019 10:47 AM EDT Patient Instructions - Fall Prevention (This education is for all patients over 65 regardless of symptoms) Remember to take your current medications as prescribed. In order to prevent falls, you are encouraged to: Exercise Utilize assistive/adaptive devices Avoid multifocal lenses when walking Avoid hazards in home Maintain a regular toileting schedule Any questions please contact our office. Preventing Falls in the Home (This education is for all patients over 65 regardless of symptoms) As you get older, falls are more likely. Thats because your reaction time slows. Your muscles and joints may also get stiffer, making them less flexible. Illness, medications, and vision changes can also affect your balance. A fall could leave you unable to live on your own. To make your home safer, follow these tips: Floors Put nonskid pads under area rugs Remove throw rugs Replace worn floor coverings Tack carpets firmly to each step on carpeted stairs. Put nonskid strips on the edges of uncarpeted stairs Keep floors and stairs free of clutter and cords Arrange furniture so there are clear pathways Clean up any spills right away Bathrooms Install grab bars in the tub or shower Apply nonskid strips or put a nonskid rubber mat in the tub or shower Sit on a bath chair to bathe Use bathmats with nonskid backing Lighting Keep a flashlight in each room Put a nightlight along the pathway between the bedroom and the bathroom [employer] Patient Education Copyright 2008 - 2010 Paul[employer] except where otherwise noted Preventing Falls: Exercises to Improve Balance, Flexibility, Strength, and Staying Power (This education is for all patients over 65 regardless of symptoms) Certain types of exercises may help make you less likely to fall. Try the ones below. Or do other exercises that your healthcare provider suggests. Depending on your health, you may need to start slowly. Dont let that stop you. Even small amounts of exercise can help you. Be sure to talk to yourhealthcare provider before starting any exercise program. Improve Balance Many types of exercise can help improve balance. Brenton chi and yoga are good examples. Heres another one to try. You can do it anytime and almost anywhere. Stand next to a counter or solid support. Push yourself up onto your tiptoes. Hold for 5 seconds. If you start to lose your balance, hold on to the counter. Rest and repeat 5 times. Work up to holding for 20 to 30 seconds, if you can. Increase Flexibility Being more flexible makes it easier for you to move around safely. Try exercises like the seated hamstring stretch. Sit in a chair and put one foot on a stool. Straighten your leg and reach with both hands down either side of your leg. Reach as far down your leg as you can. Hold for about 20 seconds. Go back to the starting position. Then repeat 5 times. Switch legs. Build Strength Resistance exercises help build strength. You can do them without equipment. Or you can use weights, elastic bands, or special machines. One such exercise is called the biceps curl. You can hold a 1 pound weight or even a can of soup. Do this exercise at least 3 times a week. Strive for everyday. Sit up straight in a chair. Keep your elbow close to your body and your wrist straight. Bend your arm, moving your hand up to your shoulder. Then slowly lower your arm. Repeat 5 times. Switch to the other arm. Build Your Staying Power Aerobic exercises make your heart and lungs stronger so you can keep moving longer. Walking and swimming are two of the best types of exercises you can do. Using a stationary bike is great, too. Find an aerobic exercise that you enjoy. Start slowly and build up. Even 5 minutes is helpful. Aimfor a goal of 30 minutes, at least 3 times a week. You dont have to do 30 minutes in one session. Break it up and walk a little throughout the day. More Helpful Tips Start easy. Slowly work up to doing more. Talk with your healthcare provider about the best exercises for you. Call senior centers or health clubs about exercise programs. If needed, have a family member watch you walk every so often to check your stability. Exercise with a friend. Choose an activity you both enjoy. Try exercises that you can do anytime, anywhere. Here are two examples. Have someone with you when you first try these: Practice walking by placing one foot right in front of the other. Stand up and sit down 10 times. Repeat this throughout the day. [employer] Patient Education Copyright 2009 - 2010 Paul[employer] except where otherwise noted. Preventing Falls: Moving Safely Using a Cane or Walker (This education is for all patients over 65 regardless of symptoms) Keep the cane away from your feet so you dont trip. A walking aid, such as a cane or walker, can help you stay more independent and avoid falls. Remember to keep your walking aid within easy reach when youre in a chair or in bed. And learn how to use it safely so you dont injure yourself. Using a Cane If you have a stronger side, hold the cane on that side. 17. Get your balance. 18. Move the cane and your weaker leg forward. 19. Support your weight on both the cane and your weaker side. 20. Step with your stronger leg. 21. Start again from step 1. If youre using a folding walker, be sure you know how to lock it open. Check that its locked open before each use. Using a Walker 7. Roll the walker (or lift it, if youre using one without wheels) forward about 12 inches. 8. Step forward with your weaker leg first. 9. Use the walker to help keep your balance. 10. Bring your other foot forward to the center of the walker. 11. Start again from step 1. Helpful Tips Check with your healthcare provider about the right walking aid to use. Ask about a walker with a seat attached. Check the tips of your cane or walker to make sure they have nonskid covers. Move slowly from room to room. Dont young. Sit down to get dressed. Use a rajeev pack or backpack to keep your hands free. Get help for jobs that mean climbing, even on a stepstool. [employer] Patient Education Copyright 2008 - 2010 Paulino except where otherwise noted. Urinary Incontinence Plan of Care Documentation: (This education is for all patients over 65 regardless of symptoms) Current medications reconciled. Patient encouraged to: Practice kegal exercises Provide education materials Use the restroom every 2 hours throughout the day Limit caffeine, alcohol, spicy foods and acidic foods Keep a bladder diary Limit fluid intake 3-4 hours before bed Lose weight Prevent constipation Take fluid pills at a time when you can get to the bathroom quickly Control sugar better if diabetic Limit fluid intake to 60 oz. per day Wear support stockings (TEDs)if you have edema Gracie Martino LPN 02/05/2019 Kegel Exercises Kegel exercises dont require special clothing or equipment. Theyre easy to learn and simple to do. And if you do them right, no one can tell youre doing them, so they can be done almost anywhere. Your doctor, nurse, or physical therapist can answer any questions you have and help you get started. A Weak Pelvic Floor The pelvic floor muscles may weaken due to aging, and vaginal childbirth, injury, surgery, chronic cough, or lack of exercise. If the pelvic floor is weak, your bladder and other pelvic organs may sag out of place. The urethra may also open too easily and allow urine to leak out. Kegel exercises can help you strengthen your pelvic floor muscles so they can better support the pelvic organs and control urine flow. How Kegel Exercises Are Done Try each of the Kegel exercises described below. When youre doing them, try not to move your leg, buttock, or stomach muscles. While youre urinating, try to stop the flow of urine. Start and stop it as often as you can. Contract as if you were stopping your urine stream, but do it when youre not urinating. Tighten your rectum as if trying not to pass gas. Contract your anus, but dont move your buttocks. Helpful Hints Do your Kegels as often as you can. The more you do them, the faster youll feel the results. Pick an activity you do often as a reminder. For instance, do your Kegels every time you sit down. Tighten your pelvic floor before you sneeze, get up from a chair, cough, laugh, or lift. This protects your pelvic floor from injury and can help prevent urine leakage. Try to hold each Kegel for a slow count to five. You probably wont be able to hold them for thatlong at first, but keep practicing. It will get easier as your pelvic floor gets stronger. Eventually, special weights that you place in your vagina may be recommended to help make your Kegels even more effective. [employer] Patient Education Copyright 2008 - 2010 Paul[employer] except where otherwise noted. Here are some helpful tips for your urinary incontinence: (This education is for all patients over 65 regardless of symptoms) Practice Kegel exercises Use the restroom every 2 hours throughout the day Limit caffeine, alcohol, spicy foods, and acidic foods Keep a bladder diary Limit fluid intake 3-4 hours before bed Lose weight Prevent constipation Take fluid pills at a time when can get to the bathroom quickly Control sugar better if diabetic Limit fluid intake to 60 oz. per day Any questions, please feel free to contact our office. documented in this encounter Progress Notes * Yariel Cardoza MD - 02/05/2019 11:03 AM EDT Subjective: Jayla Gutiérrez is a 73 year old female. who presents for routine follow-up HPI: Brief Clinical History Ms. Gutiérrez is a 73 year old woman last seen in Internal Medicine 3 months ago (12-01-18). She is due for eval of COPD, severe (HCC) and Pulmonary hypertension (HCC). Having pain in the right lower back radiating down the right buttocks and down the whole leg. Getting worse. Taking care of her ill , which hurts it worse. Has taken prednisone in the past, which helps but it comes right back. Had injections years ago that did help but only got one. Had pelvis and hip x- ray last year in ED that showed arthritis of low back, bilateral SI joints, and of femoral heads. Denies any right groin pain or left hip pain. Woke up 02/01/19 with pain in the bottom of the left foot. Does not recall any injury. Very painful to step down on it. Daughter states there was a dark area or hole and she cleaned it out for the patient. Following with ENT for thyroid nodules. Was seen there yesterday and being monitored. Follows with [facility] pulmonary. Breathing has been good. Keeps oxygen with her but only using it with heavy exertion and when sleeping. No recent flares. No current cough or sputum. PHM: Patient Active Problem List Diagnosis Code [...] Current Outpatient Medications Medication Sig Dispense Refill Trospium Chloride 20 MG Tablet Take 20 [...] TABLET BY MOUTH DAILY. 90 Tab 1 KLOR-CON 10 10 MEQ TBCR TAKE ONE TABLET BY MOUTH DAILY 90 Tab 1 sertraline (ZOLOFT) 25 MG Tablet Take 1 Tab by mouth daily. 30 Tab 5 omeprazole (PRILOSEC) 20 MG CPDR Take 1 [...] D-3 1000 UNITS PO CAPS 1 daily Past Medical History: Diagnosis Date Allergic rhinitis [...] DIAGNOSTIC (RECTUM) 03/08/2015 adenomatous polyps, repeat 3 yrs/[facility] COLONOSCOPY, DIAGNOSTIC (RECTUM) 03/26/2018 adenomatous & serrated adenomatous polyps, repeat 3 yrs/[facility] EGD, FLEXIBLE, DIAGNOSTIC 01/21/2015 sm HH/[facility] EGD, FLEXIBLE, DIAGNOSTIC 07/22/2018 mild gastritis, Schatzki ring, duodenal polyp/[facility] ESOPHAGOSCOPY RIGID TRANSORAL HYPOPHARYNX ESOPHAGUS 2005 [...] Relation Age of Onset Heart Disorder Father [place] age 55 Heart Disorder Mother CAD, 84 in '02 Arthritis Mother in fingers Diabetes Brother half brother Stroke Aunt (Unspecified) 80's Stroke Uncle (Unspecified) 60's Family Status Relation Status Fa at age 55 [place], smoked Mo at age 96 unknown cause Zandra Alive Irina Son Alive Son Alive Bro (Not Specified) AUNT (Not Specified) UNCLE (Not Specified) Social History Tobacco Use Smoking status: Former Smoker Packs/day: 1.75 Years: 38.00 Pack years: 66.50 Types: Cigarettes Last attempt to quit: 10/07/1995 Years since quittin.3 Smokeless tobacco: Never Used Tobacco comment: quit in 1995 Substance Use Topics Alcohol use: No Basic Panel Results: BASIC METAB PANEL, BMP Grisel Dt/Tm Resulted Value Status BUN (mg/dL) 07/28/18 2:30P 07/28/18 20 F CREATININE (mg/dL) 07/28/18 2:30P 07/28/18 1.0 F E GLOM FILT RATE ( ) 07/28/18 2:30P 07/28/18 54.8* F SODIUM (mmol/L) 07/28/18 2:30P 07/28/18 143 F POTASSIUM (mmol/L) 07/28/18 2:30P 07/28/18 3.8 F CHLORIDE (mmol/L) 07/28/18 2:30P 07/28/18 101 F CO2 (mmol/L) 07/28/18 2:30P 07/28/18 29 F ANION GAP (mmol/L) 07/28/18 2:30P 07/28/18 13 F GLUCOSE (mg/dL) 07/28/18 2:30P 07/28/18 98 F CALCIUM (mg/dL) 07/28/18 2:30P 07/28/18 9.4 F Lipid Panel Results: LIPID PANEL WITH [...] 10:09/12/17 14.0 F PLATELET COUNT (K/uL) 09/12/17 10:09/12/17 188 F MPV (fL) 09/12/17 10:17A 09/12/17 9.7 F NEUTS (%) 09/12/17 10:09/12/17 68.4 F LYMPHS (%) 09/12/17 10:09/12/17 18.2 F MONOS (%) 09/12/17 10:09/12/17 11.1* F EOS (%) 09/12/17 10:09/12/17 1.9 F BASOS (%) 09/12/17 10:09/12/17 0.4 F ABS. NEUTS (K/uL) 09/12/17 10:17A 09/12/17 4.76 F ABS. LYMPHS (K/uL) 09/12/17 10:09/12/17 1.27 F ABS. MONOS (K/uL) 09/12/17 10:17A 09/12/17 0.77 F ABS. EOS (K/uL) 09/12/17 10:09/12/17 0.13 F ABS. BASOS (K/uL) 09/12/17 10:09/12/17 0.03 F TSH(uIU/mL) Grisel Dt/Tm Resulted Value Status 04/17/17 10:53A 04/17/17 0.69 FINAL 06/19/16 3:29P 06/19/16 1.57 FINAL 01/28/02 9:06A 01/28/02 2.15 FINAL Review of Systems: General: No change in weight, No weakness and No fevers, sweats, or chills Head: [...] wheezing, No recent change in breathing and +severe COPD Cardiac: No chest pain, No shortness of breath, No orthopnea, No paroxysmal nocturnal dyspnea, No edema, No palpitations and No syncope Gastrointestinal: No significant heartburn, No significant change in appetite, No nausea, vomiting,diarrhea, or constipation, No blood in stools or black tarry stools and No abdominal pain Urinary: No urinary frequency, No dysuria and No hematuria Musculoskeletal: +as per HPI Objective: BP 120/80 | Pulse 62 | Temp (Src) 96.8 (Tympanic) | Resp 95 | Ht 5' 1" (1.549m) | Wt 209 lbs 2 oz (94.858kg) | BMI 39.51 kg/m | BSA 2.02 m | SaO2 14% Physical Exam: General: alert, no distress, well nourished, well [...] lungs clear to auscultation, decreased breath sounds Back: +marked tenderness over right SI joint. Some limitation of flexion Extremities: no edema, no clubbing, no cyanosis, +small foreign body noted in left ball of foot. Very painful to apply slight pressure to the area ASSESSMENT/PLAN: M54.5 Low back pain radiating to right lower extremity (primary encounter diagnosis)--worsening pain of right low back, buttocks, and radiating down the leg. Suspect sciatica and SI joint pain. Checkx-ray, given Kenalog 80 mg IM and refer to pain management for consideration of injections. Plan: Xr l spine ap and lateral Pain medicine referral op Triamcinolone acetonide 40 mg/ml ij susp Z13.9 Risk and functional assessment Plan: Pat scrn for fall risk Pres or abs of urin incont as J44.9 Copd, severe (hcc)--stable. Doing well right now. Follows with [facility] pulmonary. I27.20 Pulmonary hypertension (hcc)--as above. On oxygen at night and as needed. I10 Htn, goal below 140/90--controlled. Continue current medications. E78.5 Dyslipidemia, goal ldl below 100--controlled with atorvastatin 20 mg. M48.061 Spinal stenosis of lumbar region, unspecified whether neurogenic claudication present--as above Plan: Pain medicine referral op M51.36 Lumbar degenerative disc disease--as above Plan: Pain medicine referral op E04.2 Multiple thyroid nodules--following with [facility] ENT. M79.5 Foreign body (fb) in soft tissue--removed as below Plan: Remove skin foreign body, simple Procedure Note: Foreign body noted in ball of right foot as above. Cleaned area with alcohol prep pad. Object grasped with fine tipped tweezers and removed with gentle pressure. No bleeding noted. Patient verbalizedcomplete relief of discomfort and no residual material left in foot. Object was found to be a smallpiece of clear, irregular shaped glass I completely removed the from the patient, examined it and found it to be intact. There were no complications. Yariel Cardoza MD Follow up: Return in about 3 months (around 05/08/2019). Yariel Cardoza MD documented in this encounter Nursing Notes * Gracie Martino LPN - 02/05/2019 11:27 AM EDT Pre-Administration Time Out Procedure Performed: Yes Patient Identified (Ask Name/Date of ): Yes Does the patient have a fever greater than 101 degrees today? No Patient allergic to latex? Yes dermatitis Has the patient ever fainted after receiving an injection? No VFC Stock: No Injection(s) verified: Yes, Injection Name: kenalog Verified Side and Site: Yes Verified Shot(s) with Parent(s)/Patient: Yes * Gracie Martino LPN - 02/05/2019 10:45 AM EDT Recheck. R leg and hip pain since last fall. Pain worsening. Was on prednisone. As soon as she finished medication pain returned. Only taking atorvastatin 3 days weekly. Feels it may be causing leg pain. Open are on bottom of L foot near big toe. Noticed on Saturday. documented in this encounter Plan of Treatment Upcoming Encounters Date Type Specialty Care Team Description 02/17/2019 Office Visit Pain Management Todd Kunz, [address] [place] [address] [phone] 06/01/2019 Office Visit Internal Medicine Yariel Cardoza MD [address] [place] [address] [place] [address] [phone] Pending Results Name Priority Associated Diagnoses Date/Ti me XR L SPINE AP AND LATERAL Routine Low back pain radiating to right lower extremity 02/05/2019 11:43 AM EDT Scheduled Referrals Name Priority Associated Diagnoses Order S chedule PAIN MEDICINE REFERRAL OP Within 10 days (routine) Low back pain radiating to right lower extremity Spinal stenosis of lumbar region, unspecified whether neurogenic claudication present Lumbar degenerative disc disease Ordered: 02/05/2019 Health Maintenance Due Date Last Done Comments [...] as of this encounter Visit Diagnoses Diagnosis Low back pain radiating to right lower extremity- Primary Risk and functional assessment Screening for unspecified condition COPD, severe (HCC) Chronic airway obstruction, not elsewhere classified Pulmonary hypertension (HCC) Other chronic pulmonary heart diseases HTN, goal below 140/90 Unspecified essential hypertension Dyslipidemia, goal LDL below 100 Other and unspecified hyperlipidemia Spinal stenosis of lumbar region, unspecified whether neurogenic claudication present Lumbar degenerative disc disease Degeneration of lumbar or lumbosacral intervertebral disc Multiple thyroid nodules Nontoxic multinodular goiter Foreign body (FB) in soft tissue Residual foreign body in soft tissue documented in this encounter Administered Medications Inactive Administered Medications - up to 3 most recent administrations Medication Order MAR Action Action Date Dose Rate Site triamcinolone acetonide (KENALOG) 40 MG/ML inj 80 mg 80 mg, Intramuscular, ONCE, Olga 02/05/19 at 1145, For 1 dose Given 02/05/2019 11:27 AM EDT 80 mg Dorsogluteal Right documented in this encounter Advance Directives Patient has advance care planning documents on file. For more information, please contact: [place] [phone]
--- OUTSIDE RECORDS SUMMARY | 2023-06-07 08:24 | External Medical Summary | Summary of Care ---
Author Name Unknown Organization [place] [address] Care Team Providers Care Salvage Repairer Name Role Phone Yariel Cardoza MD Primary Care Provide r Encounter Details Date Type Department Care Team Description 02/28/2019 Scan Encounter Unspecified Department <No scans attached> [...] Todd Kunz, [address] [place] [address] [phone] Arrived 06/01/2019 Office Visit Internal Medicine Yariel Cardoza MD [address] [place] [address] [place] [address] [phone] Health Maintenance Due Date Last Done Comments [...] Documents on File Type Date Recorded Patient Contracts Analyst Expl anation Advanced Directive Advanced Directive Advanced Directive Advanced Directive
--- OUTSIDE RECORDS SUMMARY | 2023-06-07 08:24 | External Medical Summary | Summary of Care ---
Author Name Unknown Organization [place] [address] Care Team Providers Care Certified Medical Transcriptionist Name Role Phone Yariel Cardoza MD Primary Care Provide r Reason for Visit * Reason Comments case management Encounter Details Date Type Department Care Team Description 12/09/2018 Telephone Internal Medicine [address] [address] Donna Phillips RN [address] [place] [address] [place] [address] case management Allergies Active Allergy Reactions Severity Noted Date Comments Adhesive Tape 06/29/2003 Sensitive to Naproxen Hives 05/28/2015 Ivp Dye Hives 08/20/2000 Latex Other (Please comment) 01/05/2015 Contact rash Ibuprofen Rash 01/05/2015 documented as of this encounter (statuses as of 12/09/2018) Medications Medication Sig Dispensed Refills Start Date [...] as of this encounter (statuses as of 12/09/2018) Active Problems Problem Noted Date HTN, goal [...] as of this encounter (statuses as of 12/09/2018) Resolved Problems Problem Noted Date Resolved Date [...] as of this encounter (statuses as of 12/09/2018) Immunizations Name Dates Previously Given Next Due [...] Telephone Encounter - Donna Phillips RN - 12/09/2018 1:16 PM EST Follow-up to cough/sinus congestion -call placed to home number listed in [facility]-no answer. Left message on for return call Call placed to cell number listed in [facility]-no answer, voice mail not set up Donna Phillips RN Case Manager [phone] documented in this encounter Plan of Treatment Health Maintenance Due Date Last Done Comments [...] For more information, please contact: [place] [phone]
--- OUTSIDE RECORDS SUMMARY | 2023-06-07 08:24 | External Medical Summary | Summary of Care ---
Author Name Unknown Organization [place] [address] Care Team Providers Care Labor Representative Name Role Phone Yariel Cardoza MD Primary Care Provide r Encounter Details Date Type Department Care Team Description 01/22/2019 Scan Encounter Unspecified Department <No scans attached> Allergies Active Allergy Reactions Severity Noted Date Comments Adhesive Tape 06/29/2003 Sensitive to Naproxen Hives 05/28/2015 Ivp Dye Hives 08/20/2000 Latex Other (Please comment) 01/05/2015 Contact rash Ibuprofen Rash 01/05/2015 documented as of this encounter (statuses as of 01/22/2019) Medications Medication Sig Dispensed Refills Start Date [...] EVERY DAY 90 Tab 1 01/16/2019 Active documented as of this encounter (statuses as of 01/22/2019) Active Problems Problem Noted Date HTN, goal [...] as of this encounter (statuses as of 01/22/2019) Resolved Problems Problem Noted Date Resolved Date [...] as of this encounter (statuses as of 01/22/2019) Immunizations Name Dates Previously Given Next Due [...] Office Visit Internal Medicine Yariel Cardoza MD [address] [place] [address] [place] [address] Health Maintenance Due Date [...] For more information, please contact: [place] Serrano [phone]
--- OUTSIDE RECORDS SUMMARY | 2023-06-07 08:24 | External Medical Summary | Summary of Care ---
Author Name Unknown Organization [place] [address] Care Team Providers Care Title Investigator Name Role Phone Yariel Cardoza MD Primary Care Provide r Reason for Visit * Reason Comments case management Encounter Details Date Type Department Care Team Description 12/10/2018 Telephone Internal Medicine [address] [address] Donna Phillips RN [address] [place] [address] [place] [address] case management Allergies Active Allergy Reactions Severity Noted Date Comments Adhesive Tape 06/29/2003 Sensitive to Naproxen Hives 05/28/2015 Ivp Dye Hives 08/20/2000 Latex Other (Please comment) 01/05/2015 Contact rash Ibuprofen Rash 01/05/2015 documented as of this encounter (statuses as of 12/10/2018) Medications Medication Sig Dispensed Refills Start Date [...] as of this encounter (statuses as of 12/10/2018) Active Problems Problem Noted Date HTN, goal [...] as of this encounter (statuses as of 12/10/2018) Resolved Problems Problem Noted Date Resolved Date [...] as of this encounter (statuses as of 12/10/2018) Immunizations Name Dates Previously Given Next Due [...] Encounter - Donna Phillips RN - 12/10/2018 1:25 PM EST PMH: severe COPD, O2 HS and PRN, (sees Dr Soriano), pulmonary hypertension, HTN, dyslipidemia, GERD, lumbar disc disease, IBS, obesity, 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 Saw [place] pulm yesterday and given samples of Trilogy in place of Anoro and Budesemide. Also had PFTs. Would like referral to urology, Dr Manzo for ongoing urinary incontinence. Has had ongoing issues for a long time. Has a "stimulator" in her urinary sphincter in the past, but every time she passed her water she got "shocked" so asked to have it removed. Says she has to wear a pad and her daughter wants her to see a urologist. Denies chest pain Denies increased SOB, no cough/congestion Uses O2 HS Denies increased edema Denies N/V or decreased intake Denies bowel problems C/O of urinary incontinence, denies dysuria Discussed new inhaler-when going for prescription of Trelegy, ask pharmacist co payment and actual cost of inhaler as may go into the donut hole sooner. If in donut hole, call and will refer to [facility] Pt instructed to: -Call with increased SOB, wheezing, chest tightness, increased cough, increased sputum with change in color or consistency and fever. -Wash hands often -Drink plenty of fluids -Use inhalers/neb as directed, do not stop or skip doses-do not use Anoro or Budesemide when takingTrelegy -Avoid stress Referral pend for urology Scheduled pt routine PCP appt as did not have follow-up appt rescheduled Stressed safety fall precautions Call in 2-3 months Donna Phillips RN Case Manager [phone] documented in this encounter Plan of Treatment Upcoming Encounters Date Type Specialty Care Team Description 02/05/2019 Office Visit Internal Medicine Yariel Cardoza MD [address] [place] [address] [place] [address] [phone] Health Maintenance Due Date Last Done Comments [...] on file. For more information, please contact: [place] Serrano [phone]
--- OUTSIDE RECORDS SUMMARY | 2023-06-07 08:24 | External Medical Summary | Summary of Care ---
Author Name Unknown Organization [place] [address] Care Team Providers Care Pharmacy Intake Technician Name Role Phone Yariel Cardoza MD Primary Care Provide r Encounter Details Date Type Department Care Team Description 12/09/2018 Scan Encounter Unspecified Department <No scans attached> [...] as of this encounter Plan of Treatment Health Maintenance [...] For more information, please contact: [place] Serr[place] [phone]
--- OUTSIDE RECORDS SUMMARY | 2023-06-07 08:24 | External Medical Summary | Summary of Care ---
Author Name Unknown Organization [place] [address] Care Team Providers Care Fuel Efficient Aircraft Designer Name Role Phone Yariel Cardoza MD Primary Care Provide r Encounter Details Date Type Department Care Team Description 03/03/2019 Orders Only Internal Medicine [address] [address] Yariel Cardoza MD [address] [place] [address] [place] [address] Allergies Active Allergy Reactions Severity Noted [...] Todd Kunz, [address] [place] [address] [phone] 06/01/2019 Office Visit Internal Medicine Yariel Cardoza MD [address] [place] [address] CL[place] Abbott [id number] Health Maintenance Due Date Last Done Comments [...] encounter Results * CHEMISTRY-OUTSIDE (02/28/2019) CREATININE-OUTSIDE LAB 0.76 0.6 - 1.2 MG/DL OUTSIDE LAB (SEE SCANNED REPORT) GFR ESTIMATED-OUTSIDE LAB 76.7 ML/MIN/1.73M2 OUTSIDE LAB (SEE SCANNED REPORT) POTASSIUM-OUTSIDE LAB 3.6 3.5 - 5.1 MMOL/L OUTSIDE LAB (SEE SCANNED REPORT) GLUCOSE-OUTSIDE LAB 85 70 - 99 MG/DL OUTSIDE LAB (SEE [...] LAB OUTSIDE LAB (SEE SCANNED REPORT) HEMOGLOBIN, [id number] LAB OUTSIDE LAB (SEE SCANNED REPORT) PHOSPHORUS-OUTSIDE LAB OUTSIDE LAB (SEE SCANNED REPORT) PTH-OUTSIDE LAB OUTSIDE LAB (SEE SCANNED REPORT) MICROALBUMIN RATIO-OUTSIDE LAB OUTSIDE LAB (SEE SCANNED REPORT) PROTEIN, UA-OUTSIDE LAB OUTSIDE LAB (SEE SCANNED REPORT) HEMOGLOBIN-OUTSIDE LAB 14.7 12.0 - 16.0 G/DL OUTSIDE LAB (SEE SCANNED REPORT) CHEMISTRY COMMENT-OUTSIDE LAB Comment:SEE SCAN - ED LABS, [facility]: CMP, LIPASE, CBCD OUTSIDE LAB (SEE SCANNED REPORT) Specimen Narrative Performed At Performing Organization Address City/State/Zipcod e Phone Number OUTSIDE LAB (SEE SCANNED REPORT) documented in this encounter Advance Directives Documents on File Type Date Recorded Patient Medication Aid Expl anation Advanced Directive Advanced Directive Advanced Directive Advanced Directive
--- OUTSIDE RECORDS SUMMARY | 2023-06-07 08:25 | External Medical Summary | Summary of Care ---
Author Name Unknown Organization [place] [address] Care Team Providers Care Metal Buffer Name Role Phone Yariel Cardoza MD Primary Care Provide r Encounter Details Date Type Department Care Team Description 08/17/2018 Scan Encounter Unspecified Department <No scans attached> Allergies Active Allergy Reactions Severity Noted Date Comments Adhesive Tape 06/29/2003 Sensitive to Naproxen Hives 05/28/2015 Ivp Dye Hives 08/20/2000 Latex Other (Please comment) 01/05/2015 Contact rash Ibuprofen Rash 01/05/2015 as of this encounter Medications Medication Sig Dispensed Refills Start Date [...] 81 mg by mouth daily. 0 Active atorvaSTATin (LIPITOR) 20 MG TabletIndications:D yslipidemia, goal LDL below 100 TAKE 1 TABLET BY MOUTH DAILY. 90 Tab 1 01/17/2018 Active VENTOLIN HFA 108 (90 Base) MCG/ACT inhaler INHALE 2 PUFFS BY MOUTH EVERY 4 HOURS NEEDED FOR WHEEZING. 1 Inhaler 5 02/10/2018 Active KLOR-CON 10 10 MEQ TBCR TAKE ONE TABLET BY MOUTH DAILY 30 Tab 5 03/07/2018 Active albuterol-ipratropi um (DUONEB) 2.5-0.5 MG/3ML nebulizer solutionIndications :COPD, severe (HCC) INHALE 3 MLS VIA NEBULIZER EVERY 4 HOURS NEEDED FOR COUGH, SHORTNESS OF BREATH OR WHEEZING. 360 mL 1 03/17/2018 Active atenolol (TENORMIN) 25 MG Tablet Take [...] MOUTH DAILY 90 Tab 1 07/25/2018 Active as of this encounter Active Problems Problem Noted Date HTN, goal below 140/90 08/09/2017 Pulmonary hypertension 05/07/2017 Lumbar spinal stenosis 02/18/2017 Primary osteoarthritis of right knee Multiple thyroid nodules 09/09/2016 Rhinitis, nonallergic 03/30/2016 ETD (eustachian tube dysfunction) 2015 Pruritic disorder 03/30/2016 Urinary, incontinence, stress female Lumbar degenerative disc disease 016 Lumbar facet arthropathy 02/06/2016 Severe obesity with body mas s index (BMI) of 35.0 to 39.9 with serious comorbidity 01/19/2016 Overview: ICD-10 update of inactive diagnosis COPD, severe 12/21/2015 Dyslipidemia, goal LDL below 100 016 Slow transit constipation 07/20/2015 Tubular adenoma of colon 07/20/2015 IBS (irritable bowel syndrome) 5 GERD (gastroesophageal reflux disease) 1 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) 07/20/2015 Bilateral carpal tunnel syndrome 015 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 as of this encounter Resolved Problems Problem Noted Date Resolved Date Impaired fasting glucose 03/15/2017 018 Thyroid nodule 09/05/2016 01/07/2017 Kidney disease, chronic, stage III (GFR 30-59 ml /min) 10/16/2015 08/09/2017 Allergic rhinitis 09/21/2015 03/30/2016 Kidney stone 08/22/2015 07/28/2018 Dyslipidemia, goal LDL below 130 08/22/2015 10/16/2015 Generalized osteoarthritis 08/22/201503/30 COPD, severity to be determined 07/20/2015 12/21/2015 [...] 07/20/2015 Overview: ICD-10 update of inactive term as of this encounter Immunizations Name Dates Previously Given Next Due Pneumococcal Conjugate Vacc, 13 Valent (Prevnar) 09/21/2015 Pneumococcal Polysaccharide PPV23 (Pneumovax) Seasonal Influenza, Quadriva lent, No Preserve, 6 Mons & Above, IM 07/28/2018,07/31/2017 Seasonal Influenza, Quadrivalent, No Preserve, I M 07/21/2016,07/20/2015 Seasonal Influenza, Trivalen t, with Preserve, 3yr & Above, Split 08/17/2006,08/05/2003 TD - Tetanus/Diptheria (ADULT) 05/03/2004 0 05/03/2014 TDAP (age 10 and older)(Boostrix) 04/19/2018 as of this encounter Social History Tobacco Use Types Packs/Day Years Used Date Former Smoker Cigarettes 1.75 38 Quit: 10/07 Smokeless Tobacco: Never Used Comments:quit in 1995 Alcohol Use Drinks/Week oz/Week Comments No Sex Assigned at Date Recorded Not on file Job Start Date Occupation Industry Not on file Not on file Not on file Travel History Travel Start Travel End as of this encounter Plan of Treatment Upcoming Encounters Date Type Specialty Care Team Description 08/22/2018 Office Visit Internal Medicine Sander Blanco, Shani Camejo MD [address] [place] [address] [place] [address] Health Maintenance Due Date Last Done Comments *ADVANCE DIRECTIVE NOT ON FILE 12/23/2015 BREAST CANCER SCREENING DISC USSION YEARLY AGES 40-75 12/09/2018 12/09/2017, 10/08/2016, 10/06/2015, Additional history exists COLONOSCOPY-EVERY 3 YRS AGES 18-100 03/26/2021 03/26/2018, 03/08/2015 DIABETES SCREEN EVERY 3 YRS- AGE 45 AND ABOVE 07/28/2021 07/28/2018, 12/22/2017, 09/12/2017, Additional history exists DXA-SCREENING EVERY 7 YRS-US E SMARTSET# [id number] TO ORDER 08/17/2022 08/17/2015 LIPID SCREEN EVERY 5 YRS-WOM EN AGE 45-75 07/28/2023 07/28/2018, 03/19/2017, 09/27/2016, Additional history exists DTaP,Tdap,and Td Vaccines (2 - Td) 04/19/20282017, 05/03/2004 PNEUMOCOCCAL ADULT 65 YRS AND OVER Completed 2016, 09/21/2015 Influenza Vaccine (FLU shot) Completed , 07/31/2017, 07/21/2016, Additional history exists as of this encounter Implants Not on fileas of this encounter Advance Directives Patient has advance care planning documents on file. For more information, please contact: [place] Serr[place] [phone]
--- OUTSIDE RECORDS SUMMARY | 2023-06-07 08:25 | External Medical Summary | Summary of Care ---
Author Name Unknown Organization [place] [address] Care Team Providers Care Deputy Clerk Name Role Phone Yariel Cardoza MD Primary Care Provide r Reason for Visit * Reason Comments case management Encounter Details Date Type Department Care Team Description 08/26/2018 Telephone Internal Medicine [address] [address] Donna Phillips RN [address] [place] [address] case management Allergies Active Allergy Reactions [...] mouth daily. 30 Tab 5 08/26/2018 Active nystatin 455673 UNIT/ML suspension Swish and swallow 5 mL 4 times a day for 30 days. For thrush. 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 When anxious feels like throat gets tights Discussed with PCP and will prescribe Zoloft Donna Phillips, glaze supervisor [phone] in this encounter Plan of Treatment Upcoming Encounters Date Type Specialty Care Team Description 10/09/2018 Office Visit Internal Medicine Sony, Yariel Perea MD [address] [place] [address] [place] [address] [phone] Health Maintenance Due Date Last Done Comments [...] For more information, please contact: [place] S[place] [phone]
--- OUTSIDE RECORDS SUMMARY | 2023-06-07 08:25 | External Medical Summary | Summary of Care ---
Author Name Unknown Organization [place] [address] Care Team Providers Care Garbage Collector Name Role Phone Leanne Cardoza MD Primary Care Provide r Reason for Visit * Reason Comments eRx-Medication Refill Encounter Details Date Type Department Care Team Description 09/11/2018 Refill Internal Medicine [address] [address] Leanne Cardoza MD [address] [place] [address] [place] [address] COPD, severe (HCC) Allergies Active Allergy [...] daily. 0 Active atorvaSTATin (LIPITOR) 20 MG TabletIndications :Dyslipidemia, [...] evening meals. 60 Cap 5 07/17/2018 Active hydrochlorothiazi de (HYDRODIURIL) 25 MG Tablet TAKE ONE TABLET BY MOUTH DAILY 90 Tab 1 07/25/2018 Active sertraline (ZOLOFT) 25 MG Tablet Take 1 Tab by mouth daily. 30 Tab 5 08/26/2018 Active nystatin 944488 UNIT/ML suspension Swish and swallow 5 mL 4 times a day for 30 days. For thrush. 240 mL 1 08/26/2018 09/25/20 18 Active KLOR-CON 10 10 MEQ TBCR TAKE ONE TABLET BY MOUTH DAILY 90 Tab 1 09/02/2018 Active albuterol-ipratro pium (DUONEB) 2.5-0.5 MG/3ML nebulizer solutionIndicatio ns:COPD, severe (HCC) INHALE 3 MLS VIA NEBULIZER EVERY 4 HOURS NEEDED FOR COUGH, SHORTNESS OF BREATH OR WHEEZING. 360 mL 1 09/11/2018 Active albuterol-ipratro pium (DUONEB) 2.5-0.5 MG/3ML nebulizer solutionIndicatio ns:COPD, severe (HCC) INHALE 3 MLS VIA NEBULIZER EVERY 4 HOURS NEEDED FOR COUGH, SHORTNESS OF BREATH OR WHEEZING. 360 mL 1 03/17/2018 09/11/20 18 Discontinued as of this encounter Active Problems Problem [...] Telephone Encounter - Leanne Cardoza MD - 09/11/2018 12:11 PM EST Signed Prescriptions: Disp Refills albuterol-ipratropium (DUONEB) 2.5-0.5 MG/*360 mL 1 Sig: INHALE 3 MLS VIA NEBULIZER EVERY 4 HOURS NEEDED FOR COUGH, SHORTNESS OF BREATH OR WHEEZING. Authorizing Provider: LEANNE CARDOZA * Telephone Encounter - Haven García LPN - 09/11/2018 10:53 AM EST Pending Prescriptions: Disp Refills albuterol-ipratropium (DUONEB) 2.5-0.5 MG*360 mL 1 Sig: INHALE 3 MLS VIA NEBULIZER EVERY 4 HOURS NEEDED FOR COUGH, SHORTNESS OF BREATH OR WHEEZING. * Telephone Encounter - Haven García LPN - 09/11/2018 10:53 AM EST Pending Prescriptions: Disp Refills albuterol-ipratropium (DUONEB) 2.5-0.5 MG*360 mL 1 Sig: INHALE 3 MLS VIA NEBULIZER EVERY 4 HOURS NEEDED FOR COUGH, SHORTNESS OF BREATH OR WHEEZING. Last Office Visit: 08/26/2018 Next Office Visit: 10/09/2018 Scheduled Provider(s): Leanne Cardoza MD Last date the medication was ordered: 03/17/18 Patient Active Problem List Diagnosis Code Slow [...] Grisel Dt/Tm Resulted Value Status 07/28/18 2:30P 10/22/18 22 FINAL Hemoglobin AIC Results: HEMOGLOBIN, A1C(%) Grisel Dt/Tm Resulted Value Status 03/19/17 8:05A 03/19/17 5.7 FINAL in this encounter Plan of Treatment Upcoming Encounters Date Type Specialty Care Team Description 10/09/2018 Office Visit Internal Medicine Leanne Cardoza MD [address] [place] [address] [place] [address] Health Maintenance Due Date [...] Implants Not on fileas of this encounter Visit Diagnoses Diagnosis COPD, severe (HCC) Chronic airway obstruction, not elsewhere classified in this encounter Advance Directives Patient has advance care planning documents on file. For more information, please contact: [place] S[place] [phone]
--- OUTSIDE RECORDS SUMMARY | 2023-06-07 08:25 | External Medical Summary | Summary of Care ---
Author Name Unknown Organization [place] [address] Care Team Providers Care Nfl Player Name Role Phone Yariel Cardoza MD Primary Care Provide r Reason for Visit * Reason Comments Advice Encounter Details Date Type Department Care Team Description 09/04/2018 Telephone Internal Medicine [address] [address] Donna Phillips RN [address] [place] [address] Advice Allergies Active Allergy Reactions Severity Noted [...] FOR WHEEZING. 1 Inhaler 5 02/10/2018 Active albuterol-ipratropi um (DUONEB) 2.5-0.5 MG/3ML nebulizer [...] daily. 30 Tab 5 08/26/2018 Active nystatin 723944 UNIT/ML suspension Swish and swallow 5 mL 4 times a day for 30 days. For thrush. 240 mL 1 08/26/2018 09/25/2018 Active KLOR-CON 10 10 MEQ TBCR TAKE ONE TABLET BY MOUTH DAILY 90 Tab 1 09/02/2018 Active as of this encounter Active Problems [...] Telephone Encounter - Donna Phillips RN - 09/04/2018 3:28 PM EST Pt made aware Donna Phillips RN, [facility] Multimedia Artist [phone] * Telephone Encounter - Josie Ryan PA-C - 09/04/2018 2:29 PM EST She can try melatonin. * Telephone Encounter - Donna Phillips RN - 09/04/2018 2:06 PM EST Spoke with pt Having trouble sleeping -falls asleep ok, but wakes up frequently OK to try melatonin for sleep? Thinks she is waking up due to back pain -suggested intermittent heat for back pain Please advise Thanks, Donna Phillips RN Case Manager [phone] in this encounter Plan of Treatment Upcoming Encounters Date Type Specialty Care Team Description 10/09/2018 Office Visit Internal Medicine Yariel Cardoza MD [address] [place] [address] [place] [address] Health Maintenance Due Date [...] For more information, please contact: [place] S[place] [phone]
--- OUTSIDE RECORDS SUMMARY | 2023-06-07 08:25 | External Medical Summary | Summary of Care ---
Author Name Unknown Organization [place] [address] Care Team Providers Care Manager Category Name Role Phone Yariel Cardoza MD Primary Care Provide r Reason for Visit * Reason Comments case management Encounter Details Date Type Department Care Team Description 12/02/2018 Drop Shipment Clerk Care Coordination [address] [place] [address] Doug Ortiz RN COPD, severe ([facility])* Allergies Active Allergy Reactions Severity Noted Date Comments Adhesive Tape 06/29/2003 Sensitive to Naproxen Hives 05/28/2015 Ivp Dye Hives 08/20/2000 Latex Other (Please comment) 01/05/2015 Contact rash Ibuprofen Rash 01/05/2015 documented as of this encounter (statuses as of 12/02/2018) Medications Medication Sig Dispensed Refills Start Date [...] as of this encounter (statuses as of 12/02/2018) Active Problems Problem Noted Date HTN, goal [...] as of this encounter (statuses as of 12/02/2018) Resolved Problems Problem Noted Date Resolved Date [...] as of this encounter (statuses as of 12/02/2018) Immunizations Name Dates Previously Given Next Due [...] as of this encounter Progress Notes * Doug Ortiz RN - 12/02/2018 10:44 AM EST Goal review Case Management Assessment/ CAT score 10 Is this call for a hospital, senior living or rehab facility discharge to home? No S: Reports: Spoke with Jayla, she was seen by Joseph Ryan PA-C yesterday for complaints of sinus congestion, coughing, headache, sneezing. Reports she feels much better today, has been taking Coricidin prn. Encouraged use of nebulizer and fluids to help loosen congestion and thin secretions. Increased edema: denies Chest pain denies Increased shortness of breath: reports she is at her baseline denies Chills / Sweats / Fever: denies chills/sweats and denies fever Fall: denies any falls since last Care Management encounter Appetite: denies muscle cramps, dizziness, fainting denies nausea, vomiting, burning, decreased appetite Bowel: denies problems date of last BM: 12/02/18 Bladder: reports she will follow up with uroloist. and incontinent Medications: takes all medications as prescribed. and denies side effects O: Phone visit for Goal review. Medications: takes all medications as prescribed. A: Patient Centered Prioritized Goals: Patient and caregiver demonstrate basic understanding of their disease process. Exacerbations have been prevented, minimized or reduced in severity. Patient/ caregiver demonstrates adherence to treatment plan. Patient will call manager case with questions or concerns. Identified Barriers: Older than 70 years FUNCTIONAL [...] to communicate, understand instructions, process information. P: Drop Shipment Clerk Interventions: Reinforce Self Management Action Plan established at previous visit Reinforced "call back instructions" if weight fails to return to baseline, urine outputs decrease, symptoms increase Reinforced sodium restriction COPD: Pt instructed to: -Call with increased SOB, wheezing, chest tightness, increased cough, increased sputum with change in color or consistency and fever. -Wash hands often -Drink plenty of fluids -Use inhalers as directed, do not stop or skip doses -Avoid stress -Rest when tired or SOB -Avoid triggers -Clean inhalers once a week PCP Notified of enrollment in CM/HM program: Yes SNP Member? No Re-evaluation of plan of care and progress towards goals achievement: Plan to call patient in 7-10 days to reassess and update plan of care, instructed to call Drop Shipment Clerk or Primary Care Provider with change in symptoms or as needed before next follow-up, verbalizes understanding and agrees with plan. Aware of contact information for manager case, to call with increased shortness of breath, colored sputum, fever, chills. Doug Ortiz RN Outpatient Drop Shipment Clerk documented in this encounter Plan of Treatment [...] For more information, please contact: [place] [phone]
--- OUTSIDE RECORDS SUMMARY | 2023-06-07 08:25 | External Medical Summary | Summary of Care ---
Author Name Unknown Organization [place] [address] Care Team Providers Care Extension Worker Name Role Phone Yariel Cardoza MD Primary Care Provide r Reason for Visit * Reason Comments case management Encounter Details Date Type Department Care Team Description 08/26/2018 Telephone Internal Medicine [address] [address] Donna Phillips RN [address] [place] [address] case management Allergies Active Allergy [...] MOUTH DAILY 90 Tab 1 07/25/2018 Active PredniSONE (DELTASONE) 10 MG Tablet Take 10 mg by mouth daily. 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 Feeling good except she still feels anxious at times and her throat get "tight" when this happens so she would like to discuss getting something for her nerves. Denies chest pain Less SOB, less cough and cough is now loose. Reports that she is still expectorating clear, yellow and sometimes green sputum. Reports ongoing R ankle edema Denies N/Vor decreased intake Denies diff with bowels or bladder Denies unmanaged pain Obtained hosp follow-up apt for today-pt aware of date and time Reinforced to call with any s/s of COPD exacerbation- Pt instructed to: -Call with increased SOB, wheezing, chest tightness, increased cough, increased sputum with change in color or consistency and fever. -Wash hands often -Drink plenty of fluids -Use inhalers as directed, do not stop or skip doses -Avoid stress -Rest when tired or SOB -Avoid triggers Call next week Donna Phillips, pipe organ tuner and repairer [phone] in this encounter Plan of Treatment Upcoming Encounters Date Type Specialty Care Team Description 08/26/2018 Office Visit Internal Medicine Yariel Cardoza MD [address] [place] [address] CLARK Abbott [phone] 09/08/2018 Office Visit Internal Medicine Yariel Cardoza MD [address] [place] [address] [place] [address] [phone] Health Maintenance Due Date Last Done Comments [...] For more information, please contact: CLARK Serrano [phone]
--- OUTSIDE RECORDS SUMMARY | 2023-06-07 08:25 | External Medical Summary | Summary of Care ---
Author Name Unknown Organization [place] [address] Care Team Providers Care Field Sales Engineer Name Role Phone Yariel Cardoza MD Primary Care Provide r Encounter Details Date Type Department Care Team Description 08/19/2018 Global Climate Change ResearcherHospitality Coordinator Medicine [address] [address] Donna Phillips RN [address] [place] [address] COPD, severe (HCC)*; Anxiety Allergies Active Allergy Reactions Severity Noted Date [...] MOUTH DAILY 30 Tab 5 03/07/2018 Active albuterol-ipratro pium (DUONEB) 2.5-0.5 MG/3ML nebulizer [...] MOUTH DAILY 90 Tab 1 07/25/2018 Active levoFLOXacin (LEVAQUIN) 500 MG Tablet Take 500 mg by mouth daily. X 5 days 0 08/19/2018 08/23/20 18 Active PredniSONE (DELTASONE) 10 MG Tablet Take 10 mg by mouth daily. 2 tabs daily x 3 days then 1 tab daily x 3 days 0 08/25/2018 Active PredniSONE (DELTASONE) 20 MG TabletIndications :Acute right-sided low back pain with right-sided sciatica,Pain of right upper arm 1 tab 3 times a day for 3 days, then 1 tab 2 times a day for 3 days, then 1 tab daily for 3 days 18 Tab 0 07/28/2018 08/19/20 18 Discontinued as of this encounter Active [...] Start Travel End as of this encounter Progress Notes * Donna Phillips RN - 08/19/2018 11:25 AM EST PMH: severe COPD, O2 HS and PRN, (sees Dr Soriano), pulmonary hypertension, HTN, dyslipidemia, GERD, lumbar disc disease, IBS, obesity, 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 Yes 08/18/18 D/c from [facility] S: Reports:Pt reports that she is feeling better now. Says that she didn't want to go to the [facility], but she felt like her throat was closing and she couldn't breath. Says she has had a lot to cope with lately. Several appliances broke and had furnace fall thru the floor, car broke down, had a stroke and it's all been stressful. Says she would like to talk to the Dr about something for her anxiety. Increased edema: reports that her R ankle swells. Has Lasix to take PRN edema Chest pain denies Increased shortness of breath: denies cough occasional and non-productive sputum not able to expectorate sputum-had been yellow wheezing denies dyspnea with daily activities oxygen Has home O2 to use HS and PRN. Has not needed during day since coming home from hosp Chills / Sweats / Fever: denies chills/sweats and denies fever Fall: no recent falls Appetite: denies nausea, vomiting, burning, decreased appetite Bowel: denies problems Bladder: denies problems Medications: new on Prednisone taper and Levofloxacin and takes all medications as prescribed. Chronic Pain: denies unmanaged pain O: Phone visit for CHRISTIE 08/1218 D/C from [facility]. Medications: meds reconciled A: Patient Centered Prioritized Goals: Pt will verbalize s/s needing reported to Dr/CM. Pt will keep folow-up appts Development of self - management action plan with patient/caregiver/ provider. Patient and caregiver demonstrate basic understanding of their disease process. Exacerbations have been prevented, minimized or reduced in severity. Co-morbid conditions identified and managed. Patient/ caregiver demonstrates adherence to treatment plan. Identified Barriers: Patient/caregiver's lack of understanding of their condition and prescribed treatment plan and Older than 70 years FUNCTIONAL STATUS: (Definition [...] to communicate, understand instructions, process information. P: Global Climate Change Researcher Interventions: informed pt of PCP hosp follow-up with Dr Sander Blanco-date and time.Instructed pt to make Dr aware of issues with stress and anxiety Reinforce Self Management Action Plan established at previous visit COPD: Pt instructed to: -Call with increased SOB, wheezing, chest tightness, increased cough, increased sputum with change in color or consistency and fever. -Wash hands often -Drink plenty of fluids -Use inhalers/nebulizer Tx as directed, do not stop or skip doses Advised to use Duoneb 3-4 times/day over the next week and to use prior to Pulmicort. Explained that Duoneb assists with opening airways and help with breathing easier -Avoid stress-Pt to discuss with Dr Sander Blanco as upcoming appt -Rest when tired or SOB -Avoid triggers -Clean inhalers once a week Instructed to take antibiotic as directed and until finished. Instructed to take Prednisone as directed and until finished and encouraged to take with food Call with any worsening or persisting symptoms Reinforced safety education / fall prevention PCP Notified of enrollment in CM/HM program: Yes SNP Member? No Re-evaluation of plan of care and progress towards goals achievement:aware of s/s needing reported.Has obtained antibiotic and prednisone. Aware of PCP appt Plan to call patient in again this week to reassess and update plan of care, instructed to call Global Climate Change Researcher or Primary Care Provider with change in symptoms or as needed before next follow-up, verbalizes understanding and agrees with plan. Donna Phillips RN Outpatient Global Climate Change Researcher in this encounter Plan of Treatment Upcoming Encounters Date Type Specialty Care Team Description 08/22/2018 Office Visit Internal Medicine Sander Blanco, Shani Camejo MD [address] [place] [address] [place] [address] Health Maintenance Due Date [...] Primary Chronic airway obstruction, not elsewhere classified Anxiety Anxiety state, unspecified in this encounter Advance Directives Patient has advance care planning documents on file. For more information, please contact: CL[place] Serrano [phone]
--- OUTSIDE RECORDS SUMMARY | 2023-06-07 08:25 | External Medical Summary | Summary of Care ---
Author Name Unknown Organization [place] [address] Care Team Providers Care Cloth Picker Name Role Phone Yariel Cardoza MD Primary Care Provide r Reason for Visit * Reason Comments case management Encounter Details Date Type Department Care Team Description 09/10/2018 Telephone Internal Medicine [address] [address] Donna Phillips RN [address] [place] [address] case management Allergies Active Allergy [...] daily. 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 Breathing is baseline-no O2 during day, uses HS. Sleeping better, nerves improved somewhat No cough No congestion No increased SOB No chest pain No lower leg edema this week Denies N/V or decreased intake Denies diff with bladder or bowels Denies unmanaged pain Finished Prednisone and Levaquin Instructed to call with any cough/congestion, SOB, colored sputum or fever/chills or any other concerns Call in 2-3 weeks Donna Phillips, green marketer [phone] in this encounter Plan of Treatment Upcoming Encounters Date Type Specialty Care Team Description 10/09/2018 Office Visit Internal Medicine Yariel Cardoza MD [address] [place] [address] CL[place] Abbott [address] Health Maintenance Due Date [...] For more information, please contact: [place] Serrano [phone]
--- OUTSIDE RECORDS SUMMARY | 2023-06-07 08:25 | External Medical Summary | Summary of Care ---
Author Name Unknown Organization [place] [address] Care Team Providers Care Care Trainer Name Role Phone Yariel Cardoza MD Primary Care Provide r Reason for Visit * Reason Comments case management Encounter Details Date Type Department Care Team Description 10/22/2018 Telephone Internal Medicine [address] [address] Donna Phillisp RN [address] [place] [address] case management Allergies Active Allergy [...] MOUTH DAILY. 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 Says she was to have a 6 week follow-up with PA-C for her depression and she cancelled it as she is doing good emotionally. Reports that she is having issues with pain in her R leg. Says she thinks it's her sciatica and is having pain 29/04-no increased swelling, redness or warmth in leg Reports that the pain only got better while she was on the Prednisone and came back as soon as it was done. Reports that she was to get set up to see about getting injections, but then she got sick Denies chest pain Denies increased SOB, no cough/congestion Uses O2 HS Denies increased edema Denies N/V or decreased intake Denies bowel or bladder problems C/o constant R leg pain Reinforced: Pt instructed to: -Call with increased SOB, wheezing, chest tightness, increased cough, increased sputum with change in color or consistency and fever. -Wash hands often -Drink plenty of fluids -Use inhalers as directed, do not stop or skip doses -Avoid stress -Rest when tired or SOB -Avoid triggers -Clean inhalers once a week Offered to schedule appointment with provider for R leg pain-pt declined currently - says she "willthink about it and call for an appt" Stressed safety fall precautions Call in 1-2 months Donna Phillips environmental engineering technician [phone] in this encounter Plan of Treatment Health Maintenance Due Date Last Done Comments *ADVANCE DIRECTIVE NOT ON FILE 12/23/2015 COLONOSCOPY-EVERY 3 YRS AGES 18-100 03/26/2021 03/26/2018, 03/08/2015 DIABETES SCREEN EVERY 3 YRS- AGE 45 AND ABOVE 07/28/2021 07/28/2018, 12/22/2017, 09/12/2017, Additional history exists DXA-SCREENING EVERY 7 YRS- E InnovectraSET# [id number] TO ORDER 08/17/2022 08/17/2015 DTaP,Tdap,and Td Vaccines (2 - Td) 04/19/20282017, 05/03/2004 PNEUMOCOCCAL ADULT 65 YRS AND OVER Completed 2016, 09/21/2015 Influenza Vaccine (FLU shot) Completed , 07/31/2017, 07/21/2016, Additional history exists as of this encounter Implants Not on fileas of this encounter Advance Directives Patient has advance care planning documents on file. For more information, please contact: [place] Serr[place] [phone]
--- OUTSIDE RECORDS SUMMARY | 2023-06-07 08:25 | External Medical Summary | Summary of Care ---
Author Name Unknown Organization [place] [address] Care Team Providers Care Drafter Plumbing Name Role Phone Yariel Cardoza MD Primary Care Provide r Reason for Visit * Reason Comments Hospital Follow-Up Hospital Follow-Up Encounter Details Date Type Department Care Team Description 08/26/2018 Office Visit Internal Medicine [address] [address] Yariel Cardoza MD [address] [place] [address] [place] [address] COPD exacerbation (HCC)*; Other dysphagia; Hospital discharge follow-up; Thrush; Anxiety; COPD, severe (HCC); HTN, goal below 140/90 Allergies Active Allergy [...] daily. 30 Tab 5 08/26/2018 Active nystatin 008560 UNIT/ML suspension Swish and swallow 5 mL 4 times a day for 30 days. For thrush. 240 mL 1 08/26/2018 09/25/20 18 Active PredniSONE (DELTASONE) 10 MG Tablet Take 10 mg by mouth daily. 2 tabs daily x 3 days then 1 tab daily x 3 days 0 08/25/2018 08/26/20 18 Discontinued as of this encounter Active [...] Start Travel End as of this encounter Last Filed Vital Signs Vital Sign Reading Time Taken Blood Pressure 122/80 08/26/2018 3:12 PM EST Pulse 72 08/26/2018 3:12 PM EST Temperature 36.6 C (97.9 F) 08/26/2018 3 :12 PM EST Respiratory Rate 14 08/26/2018 3:12 PM EST Oxygen Saturation - - Inhaled Oxygen Concentration - - Weight 99.1 kg (218 lb 8 oz) 08/26/2018 3:12 PM EST Height - - Body Mass Index 40.62 08/26/2018 3:12 PM EST in this encounter Patient Instructions * Patient Instructions* Yariel Cardoza MD - 08/26/2018 3:27 PM EST Taking Medicine Safely Medicine is given to [...] street drugs, herbs, supplements, or even some nqvz-hmo-hwtfqjk medicines can be harmful. Talk to your [...] to get rid of medicine: Call your [facility] or [facility] government's household trash and recycling service and ask if a drug take-back program is available in your community. Call your local pharmacy and ask the right way to get rid of the medicine. Go to http://www.fda.gov/ForConsumers/ConsumerUpdates/ymq268794 to learn how to get rid of [...] brand-name medicine, unless their doctor says otherwise. [facility], [address] [place] [address], [place] [address]. All rights reserved. This information is not [...] best to keep a sense of humor. [facility], [address] [place] [address], [place] [address]. All rights reserved. This information is not [...] and pharmacist about all the prescription and jrjg-ffa-nuqclwk medicines you take.This includes vitamins and herbal remedies. Tell your doctor and pharmacist if you have any medical conditions or allergies to any medicine or food, or if you are or . Keep a list of all your medicines. Use the sample to the right as a guide for the type of information needed. 3746-5265 [facility], [address] [place] [address], [place] [address]. All rights reserved. This information is not intended as a substitute for professional medical care. Always follow your healthcare professional's instructions. in this encounter Progress Notes * Yariel Cardoza MD - 08/26/2018 3:27 PM EST SUBJECTIVE: Jayla Gutiérrez is a 72 year old female. Chief Complaint Patient presents with Hospital Follow-Up Hospital Follow-Up Recent Admission: Patient was recently admitted to [facility]. The date of discharge was 08/18/2018. Discharge report received and reviewed. HPI: Brief Clinical History Ms. Gutiérrez is a 72 year old woman last seen in Internal Medicine today (08-26-18). She has h/o COPD and heart failure. Admitted to [facility] 08/17/18-08/18/18 with shortness of breath, congestion, and feeling like her throat was closing off. Diagnosed with COPD exacerbation and discharged with Levaquin and prednisone. Wasseen by speech therapy and GI for ongoing complaints of dysphagia and throat closing. Had EGD 07/22/18 and had Schatzki ring dilated and no other findings to explain dysphagia. States the throat closing is worse when she gets anxious and panics. Both GI and speech felt she should be put on something to treat her anxiety to help with the throat closing sensation. Patient had elevated d-dimer but declined V/Q scan and CT scan. Venous doppler negative for DVT. Has been under a lot of stress this year. Is feeling overwhelmed and anxious. Has never taken anything for depression or anxiety. Sometimes has trouble sleeping at night due to mind racing and anxiety. Denies any suicidal ideation. Breathing is better. Nasal congestion is much improved. Finished the Levaquin and prednisone. No fever or chills. Uses oxygen at night. Compliant with inhalers. Patient Active Problem List Diagnosis Code Slow [...] Outpatient Medications Medication Sig Dispense Refill nystatin [id number] UNIT/ML suspension Swish and swallow 5 mL 4 times a day for 30 days. For thrush. 240 mL 1 sertraline (ZOLOFT) 25 MG Tablet Take 1 Tab by mouth daily. 30 Tab 5 hydrochlorothiazide (HYDRODIURIL) 25 MG Tablet TAKE ONE TABLET BY MOUTH DAILY 90 Tab 1 omeprazole (PRILOSEC) 20 MG [...] Tab by mouth daily. 90 Tab 1 albuterol-ipratropium (DUONEB) 2.5-0.5 MG/3ML nebulizer solution INHALE 3 MLS VIA NEBULIZER EVERY 4 HOURS NEEDED FOR COUGH, SHORTNESS OF BREATH OR WHEEZING. 360 mL 1 KLOR-CON 10 10 MEQ TBCR TAKE ONE TABLET BY MOUTH DAILY 30 Tab 5 VENTOLIN HFA 108 (90 Base) MCG/ACT inhaler INHALE 2 PUFFS BY MOUTH EVERY 4 HOURS NEEDED FOR WHEEZING. 1 Inhaler 5 atorvaSTATin (LIPITOR) 20 MG Tablet TAKE 1 TABLET BY MOUTH DAILY. 90 Tab 1 Aspirin 81 MG Tablet [...] D-3 1000 UNITS PO CAPS 1 daily Current and discharge medications have been reconciled. Review of patient's allergies indicates: Allergen Reactions Adhesive Tape Sensitive to Aleve [Naproxen] Hives Ivp Dye Hives Latex Other (Please comment) Contact rash Motrin [Ibuprofen] Rash CBC Results: CBC/DIFF Grisel Dt/Tm Resulted Value Status WBC (K/uL) 09/12/17 10:17A 09/12/17 6.96 F RBC (M/uL) 09/12/17 10:17A 09/12/17 4.86 F HGB (g/dL) 09/12/17 10:17A 09/12/17 14.4 F HCT (%) 09/12/17 10:09/12/17 47.1* F MCV (fL) 09/12/17 10:09/12/17 96.9 F MCH (pg) 09/12/17 10:17A 09/12/17 29.6 F MCHC (g/dL) 09/12/17 10:17A 09/12/17 30.6* F RDW (%) 09/12/17 10:17A 09/12/17 14.0 F PLATELET COUNT (K/uL) 09/12/17 10:17A 09/12/17 188 F MPV (fL) 09/12/17 10:09/12/17 9.7 F NEUTS (%) 09/12/17 10:17A 09/12/17 68.4 F LYMPHS (%) 09/12/17 10:09/12/17 18.2 F MONOS (%) 09/12/17 10:17A 09/12/17 11.1* F EOS (%) 09/12/17 10:17A 09/12/17 1.9 F BASOS (%) 09/12/17 10:09/12/17 0.4 F ABS. NEUTS (K/uL) 09/12/17 10:17A 09/12/17 4.76 F ABS. LYMPHS (K/uL) 09/12/17 10:17A 09/12/17 1.27 F ABS. MONOS (K/uL) 09/12/17 10:17A 09/12/17 0.77 F ABS. EOS (K/uL) 09/12/17 10:17A 09/12/17 0.13 F ABS. BASOS (K/uL) 09/12/17 10:17A 09/12/17 0.03 F Basic Panel Results: BASIC METAB PANEL, [...] DIRECT LDL IF TG ABOVE 400 MG/DL [facility] Dt/ Resulted Value Status HOURS FASTING (hours) 07/28/18 2:30P 07/28/18 NOT FASTING F TRIGLYCERIDES (mg/dL) 07/28/18 2:30P 07/28/18 229* F CHOLESTEROL (mg/dL) 07/28/18 2:30P 07/28/18 133 F HDL (mg/dL) 07/28/18 2:30P 07/28/18 36* F CHOL/HDL RATIO ( ) 07/28/18 2:30P 07/28/18 3.7 F LDL (CALCULATED) (mg/dL) 07/28/18 2:30P 07/28/18 51 F LDL DIRECT(REFLEX) (mg/dL) 07/28/18 2:30P 07/28/18 F Value: NOT APPLICABLE ALT Results: ALT(U/L) [facility] Dt/Tm Resulted Value Status 07/28/18 2:30P 07/28/18 22 FINAL 09/12/17 10:17A 09/12/17 16 FINAL 04/17/17 10:53A 04/17/17 21 FINAL Hemoglobin AIC Results: HEMOGLOBIN, A1C(%) Grisel Dt/Tm Resulted Value Status 03/19/17 8:05A 03/19/17 5.7 FINAL OBJECTIVE: BP 122/80 | Pulse 72 | Temp (Src) 97.9 (Tympanic) | Resp 14 | Wt 218 lbs 8 oz (99.111kg) | BMI 40.62 kg/m | BSA 2.07 m Review Of Systems: Skin: pt denies, new or changing moles, pigmentation change, rash, scaling, itching, bruising Eyes: negative Ears/Nose/Throat: pt denies:, deafness, tinnitus, vertigo Respiratory: +as per HPI Cardiovascular: pt denies:, palpitations, tachycardia, chest pain, exertional chest pain or pressure and lower extremity edema Gastrointestinal: pt. denies:, abdominal pain, bloating or excess gas, dysphagia, nausea, heartburn, blood in stool or black stools, constipation or change in bowel habits, diarrhea Genitourinary: pt denies:, nocturia, dysuria and frequency Musculoskeletal: pt denies significant joint pain or stiffness Neurologic: pt denies:, headaches, syncope and seizures Psychiatric: + anxiety and feeling overwhelmed as above Hematologic/Lymphatic/Immunologic: pt denies:, immunodeficiency, anemia and bruising Endocrine: pt denies:, thyroid disorder, cold intolerance and heat intolerance PHYSICAL EXAM: General: alert, no distress, well [...] tenderness, lungs clear to auscultation Extremities: no edema, no clubbing, no cyanosis ASSESSMENT: J44.1 Copd exacerbation (hcc) (primary encounter diagnosis) R13.19 Other dysphagia Z09 Hospital discharge follow-up Plan: Disch med recon cur med lis B37.0 Thrush F41.9 Anxiety J44.9 Copd, severe (hcc) I10 Htn, goal below 140/90 Follow up: Return in about 6 weeks (around 10/07/2018). PLAN: Continue present medication(s): Begin medication(s): sertraline 25 mg at bedtime for anxiety/depression COPD exacerbation improved. Breathing at baseline. Follow up in 6 week(s) for recheck of anxiety/depression. Yariel Cardoza MD in this encounter Nursing Notes * Gracie Martino LPN - 08/26/2018 3:09 PM [facility] [[email or web address] Hospital follow up. Anxiety due to throat feeling tight and not being able to swallow. . Congestion. in this encounter Plan of Treatment Upcoming Encounters Date Type Specialty Care Team Description 10/09/2018 Office Visit Internal Medicine Yariel Cardoza MD [address] [place] [address] [place] [address] Health Maintenance Due Date [...] fileas of this encounter Visit Diagnoses Diagnosis COPD exacerbation (HCC)- Primary Obstructive chronic bronchitis with exacerbation Other dysphagia Hospital discharge follow-up Other follow-up examination Thrush Candidiasis of mouth Anxiety Anxiety state, unspecified COPD, severe (HCC) Chronic airway obstruction, not elsewhere classified HTN, goal below 140/90 Unspecified essential hypertension in this encounter Advance Directives Patient has advance care planning documents on file. For more information, please contact: [place] Serr[place] [phone]"
--- OUTSIDE RECORDS SUMMARY | 2023-06-07 08:25 | External Medical Summary | Summary of Care ---
Author Name Unknown Organization [place] [address] Care Team Providers Care Veterinary Medicine Scientist Name Role Phone Yariel Cardoza MD [...] Internal Medicine Sander Blanco, Shani Camejo MD [address] [place] [address] [place] [address] Health Maintenance Due Date [...] For more information, please contact: [place] [phone]
--- OUTSIDE RECORDS SUMMARY | 2023-06-07 08:25 | External Medical Summary | Summary of Care ---
Author Name Unknown Organization [place] [address] Care Team Providers Care Pharmacy Coordinator Name Role Phone Leanne Cardoza MD Primary Care Provide r Reason for Visit * Reason Comments eRx-Medication Refill Encounter Details Date Type Department Care Team Description 09/02/2018 Refill Internal Medicine [address] [address] Leanne Cardoza MD [address] [place] [address] [place] [address] Allergies Active Allergy Reactions Severity Noted [...] FOR WHEEZING. 1 Inhaler 5 02/10/2018 Active albuterol-ipratro pium (DUONEB) 2.5-0.5 MG/3ML nebulizer [...] FOR DIZZINESS/VERTIGO 10 Tab 0 06/11/2018 Active umeclidinium-rdaha nterol (ANORO ELLIPTA) 62.5-25 MCG/INH AEPB Inhale [...] daily. 30 Tab 5 08/26/2018 Active nystatin [id number] UNIT/ML suspension Swish and swallow 5 mL 4 times a day for 30 days. For thrush. 240 mL 1 08/26/2018 09/25/20 18 Active KLOR-CON 10 10 MEQ TBCR TAKE ONE TABLET BY MOUTH DAILY 90 Tab 1 09/02/2018 Active KLOR-CON 10 10 MEQ TBCR TAKE ONE TABLET BY MOUTH DAILY 30 Tab 5 03/07/2018 09/02/20 18 Discontinued as of this encounter Active [...] Telephone Encounter - Leanne Cardoza MD - 09/02/2018 9:54 AM EST Signed Prescriptions: Disp Refills KLOR-CON 10 10 MEQ TBCR 90 Tab 1 Sig: TAKE ONE TABLET BY MOUTH DAILY Authorizing Provider: LEANNE CARDOZA * Telephone Encounter - Maria Antonia Whiteside LPN - 09/02/2018 9:14 AM EST Pending Prescriptions: Disp Refills KLOR-CON 10 10 MEQ TBCR [Pharmacy Med Nam*90 Tab 1 Sig: TAKE ONE TABLET BY MOUTH DAILY * Telephone Encounter - Kayla Sepulveda LPN - 09/02/2018 8:54 AM EST Pending Prescriptions: Disp Refills KLOR-CON 10 10 MEQ TBCR [Pharmacy Med Nam*90 Tab 3 Sig: TAKE ONE TABLET BY MOUTH DAILY * Telephone Encounter - Kayla Sepulveda LPN - 09/02/2018 8:42 AM EST Pending Prescriptions: Disp Refills KLOR-CON 10 10 MEQ TBCR [Pharmacy Med Nam*30 Tab 5 Sig: TAKE ONE TABLET BY MOUTH DAILY Last Office Visit: 08/26/2018 Next Office Visit: 10/09/2018 Scheduled Provider(s): Leanne Cardoza MD Last date the medication was ordered: 03/07/18 Patient Active Problem List Diagnosis Code Slow [...] Visit Internal Medicine Leanne Cardoza MD [address] [place] [address] [place] [address] Health Maintenance Due Date [...] For more information, please contact: [place] [phone]
--- OUTSIDE RECORDS SUMMARY | 2023-06-07 08:25 | External Medical Summary | Summary of Care ---
Author Name Unknown Organization [place] [address] Care Team Providers Care Conductor Road Freight Name Role Phone Yariel Cardoza MD Primary Care Provide r Reason for Visit * Reason Comments Acute Encounter Details Date Type Department Care Team Description 12/01/2018 Office Visit Internal Medicine [address] [place] [address] Josie Ryan PA-C [address] [place] [address] [place] [address] Sinus congestion* Allergies Active Allergy Reactions Severity Noted Date Comments Adhesive Tape 06/29/2003 Sensitive to Naproxen Hives 05/28/2015 Ivp Dye Hives 08/20/2000 Latex Other (Please comment) 01/05/2015 Contact rash Ibuprofen Rash 01/05/2015 documented as of this encounter (statuses as of 12/01/2018) Medications Medication Sig Dispensed Refills Start Date [...] MOUTH DAILY. 90 Tab 1 09/24/2018 Active documented as of this encounter (statuses as of 12/01/2018) Active Problems Problem Noted Date HTN, goal [...] as of this encounter (statuses as of 12/01/2018) Resolved Problems Problem Noted Date Resolved Date [...] as of this encounter (statuses as of 12/01/2018) Immunizations Name Dates Previously Given Next Due [...] Vital Sign Reading Time Taken Blood Pressure 112/66 12/01/2018 2:50 PM EST Pulse 64 12/01/2018 2:50 PM EST Temperature 37 C (98.6 F) 12/01/2018 2:5 0 PM EST Respiratory Rate 12 12/01/2018 2:50 PM EST Oxygen Saturation - - Inhaled Oxygen Concentration - - Weight 95.7 kg (211 lb) 12/01/2018 2:50 PM EST Height - - Body Mass Index 39.22 12/01/2018 2:50 PM EST documented in this encounter Progress Notes * Josie Ryan PA-C - 12/01/2018 2:54 PM EST Nursing Notes: Harmony Sarkar LPN 12/01/18 1454 Signed Pt is here for coughing, right ear cracking, CLARK, hurts in her center back in to breath, a lot of mucus , sneezing , for the past week Pt here today with nasal/head congestion, sinus pain/pressure, clear nasal drainage, post nasal drip, sneezing, itchy/watery eyes, slight cough for the past few days. Pt denies fever, chills, nausea,vomiting, diarrhea, chest pain, SOB. Pt has not been taking anything OTC for the sx. Review of patient's allergies indicates: Allergen Reactions Adhesive Tape Sensitive to Aleve [Naproxen] Hives Ivp Dye Hives Latex Other (Please comment) Contact rash Motrin [Ibuprofen] Rash Current Outpatient Medications Medication Sig Dispense Refill atorvaSTATin (LIPITOR) 20 MG Tablet TAKE 1 [...] Two-three times per week 255 g 0 VITAMIN D-3 1000 UNITS PO CAPS 1 daily albuterol-ipratropium (DUONEB) 2.5-0.5 MG/3ML nebulizer solution INHALE 3 MLS VIA NEBULIZER EVERY 4HOURS NEEDED FOR COUGH, SHORTNESS OF BREATH OR WHEEZING. 360 mL 1 meclizine (ANTIVERT) 25 MG Tablet TAKE 1 TABLET BY MOUTH ONCE EVERY 6HRS NEEDED FOR DIZZINESS/VERTIGO 10 Tab 0 furosemide (LASIX) 20 MG Tablet TAKE 1 TABLET BY MOUTH DAILY NEEDED (SWELLING). FOR FLUID ACCUMULATION OR WEIGHT GAIN 30 Tab 5 oxygen GAS Use 2 L/min(Oxygen) as directed continuous. 1 Each 0 camphor-menthol (SARNA) 0.5-0.5 % lotion Apply topically to affected area as needed for Itching. 222 mL 3 Past Medical History: Diagnosis Date Allergic [...] knee 02/18/2017 Pulmonary hypertension ([facility]) 05/07/2017 Reflux esophagitis 01/28/2002 Slow transit constipation 07/20/2015 Thyroid nodule 09/05/2016 Tubular adenoma of colon 07/20/2015 Urge incontinence 05/03/2004 Urinary, incontinence, stress female 02/21/2016 Social History Socioeconomic History Marital status: Spouse name: Naty Number of children: 3 Years of education: Not on file Highest education level: Not on file Social Needs Financial resource strain: Not on file Food insecurity - worry: Not on file Food insecurity - inability: Not on file Transportation needs - medical: Not on file Transportation needs - non-medical: Not on file Occupational History 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 3 living children. O:Blood pressure 112/66, pulse 64, temperature 37 C (98.6 F), temperature source Tympanic, resp. rate 12, weight 95.7 kg (211 lb). GENERAL: alert, healthy and no distress NECK: supple, no adenopathy EYES: PERRLA, Conjunctiva are pink and non-injected, sclera clear EARS: External ears normal, Canals clear, TM's Normal NOSE: no mucosal erythema, no mucosal edema, no purulent discharge, no septal hematoma OROPHARYNX: no exudate, no erythema, lips, buccal mucosa, and tongue normal and mucous membranes are moist HEART: regular rate & rhythm, no murmurs and no gallops LUNGS: chest symmetric with normal AP diameter, no chest deformities noted, no chest wall tenderness, lungs clear to auscultation A:R09.81 Sinus congestion (primary encounter diagnosis) Try flonase, sudafed, zyrtec. If this persists, worsens, develops fever/chills/colored nasal drainage, please call and we can call in abx. Rest, fluids. Any questions/problems, please call. Follow up: Return if symptoms worsen or fail to improve. Josie Ryan PA-C documented in this encounter Nursing Notes * Harmony Sarkar LPN - 12/01/2018 2:51 PM EST Pt is here for coughing, right ear cracking, CLARK, hurts in her center back in to breath, a lot of mucus , sneezing , for the past week documented in this encounter Plan of Treatment [...] as of this encounter Visit Diagnoses Diagnosis Sinus congestion- Primary Other diseases of nasal cavity and sinuses documented in this encounter Advance Directives Patient has advance care planning documents on file. For more information, please contact: [place] [phone]
--- OUTSIDE RECORDS SUMMARY | 2023-06-07 08:25 | External Medical Summary | Summary of Care ---
Author Name Unknown Organization [place] [address] Care Team Providers Care Wash And Greaser Name Role Phone Yariel Cardoza MD Primary Care Provide r Reason for Visit * Reason Comments case management Encounter Details Date Type Department Care Team Description 09/04/2018 Accounts Receivable CoordinatorCryptological Technician Medicine [address] [address] Donna Phillips RN [address] [place] [address] COPD, severe ([facility])* Allergies Active Allergy Reactions Severity [...] daily. 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 Yes 08/18/18 D/c from [facility] S: Reports:Pt reports that her breathing has been fine. Having trouble sleeping- falls asleep ok, but can't stay asleep. Thinks back pain is waking her. Has tried Tylenol and Salone pas for the pain. Prednisone has been helpful in the past. New on Zoloft for depression/anxiety Increased edema: reports that her R ankle swells. Has Lasix to take PRN edema Chest pain denies Increased shortness of breath: denies No cough/congestion dyspnea with daily activities oxygen Has home O2 to use HS and PRN. Has not needed during day since coming home from hosp Chills / Sweats / Fever: denies chills/sweats and denies fever Fall: no recent falls Appetite: denies nausea, vomiting, burning, decreased appetite Bowel: denies problems Bladder: denies problems Medications: takes all medications as prescribed. Chronic Pain:c/o lower back pain O: Phone visit for CHRISTIE wk 2 GOALS Medications:Takes meds as directed/ordered A: Patient Centered Prioritized Goals: Pt will verbalize s/s needing reported to Dr/MARTHA. Pt will keep folow-up appts Development of [...] to communicate, understand instructions, process information. P: Accounts Receivable Coordinator Interventions:message to PCP about sleep and back pain Reinforce Self Management Action Plan established at previous visit COPD: Pt instructed to: -Call with increased SOB, wheezing, chest tightness, increased cough, increased sputum with change in color or consistency and fever. -Wash hands often -Drink plenty of fluids -Use inhalers/nebulizer Tx as directed, do not stop or skip doses -Avoid stress-Pt new on Zoloft Reinforced safety education / fall prevention PCP Notified of enrollment in CM/HM program: Yes SNP Member? No Re-evaluation of plan of care and progress towards goals achievement:aware of s/s needing reported.was seen by PCP for hosp follow-up. New on Zoloft Plan to call patient next week to reassess and update plan of care, instructed to call Case Manageror Primary Care Provider with change in symptoms or as needed before next follow-up, verbalizes understanding and agrees with plan. Donna Phillips RN Outpatient Accounts Receivable Coordinator in this encounter Plan of Treatment Upcoming Encounters Date Type Specialty Care Team Description 10/09/2018 Office Visit Internal Medicine Yariel Cardoza MD [address] [place] [address] [place] [address] Health Maintenance Due Date [...] Primary Chronic airway obstruction, not elsewhere classified in this encounter Advance Directives Patient has advance care planning documents on file. For more information, please contact: [place] Serr[place] [phone]
--- OUTSIDE RECORDS SUMMARY | 2023-06-07 08:25 | External Medical Summary | Summary of Care ---
Author Name Unknown Organization [place] [address] Care Team Providers Care Tenant Relations Coordinator Name Role Phone Leanne Cardoza MD Primary Care Provide r Reason for Visit * Reason Comments eRx-Medication Refill Encounter Details Date Type Department Care Team Description 09/24/2018 Refill Internal Medicine [address] [place] [id number] Josie Ryan PA-C [address] [place] [address] [place] [address] Dyslipidemia, goal LDL below 100 Allergies [...] daily. 30 Tab 5 08/26/2018 Active nystatin 596772 UNIT/ML suspension Swish and swallow 5 mL [...] MOUTH DAILY. 90 Tab 1 09/24/2018 Active atorvaSTATin (LIPITOR) 20 MG TabletIndications :Dyslipidemia, goal LDL below 100 TAKE 1 TABLET BY MOUTH DAILY. 90 Tab 1 01/17/2018 09/24/20 18 Discontinued as of this encounter Active [...] Telephone Encounter - Leanne Cardoza MD - 09/24/2018 11:25 AM EST Signed Prescriptions: Disp Refills atorvaSTATin (LIPITOR) 20 MG Tablet 90 Tab 1 Sig: TAKE 1 TABLET BY MOUTH DAILY. Authorizing Provider: LEANNE CARDOZA * Telephone Encounter - Corrina Mazariegos LPN - 09/24/2018 10:51 AM EST Pending Prescriptions: Disp Refills atorvaSTATin (LIPITOR) 20 MG Tablet [Phar*90 Tab 1 Sig: TAKE 1 TABLET BY MOUTH DAILY. * Telephone Encounter - Corrina Mazariegos LPN - 09/24/2018 10:51 AM EST Pending Prescriptions: Disp Refills atorvaSTATin (LIPITOR) 20 MG Tablet [Phar*90 Tab 1 Sig: TAKE 1 TABLET BY MOUTH DAILY. Last Office Visit: 08/26/2018 Next Office Visit: 10/09/2018 Scheduled Provider(s): Leanne Cardoza MD Last date the medication was ordered: 01/17/18 Patient Active Problem List Diagnosis Code Slow [...] Office Visit Internal Medicine Leanne Cardoza MD [address] [place] [address] [place] [address] Health Maintenance Due Date Last Done [...] fileas of this encounter Visit Diagnoses Diagnosis Dyslipidemia, goal LDL below 100 Other and unspecified hyperlipidemia in this encounter Advance Directives Patient has advance care planning documents on file. For more information, please contact: [place] [id number]
--- OUTSIDE RECORDS SUMMARY | 2023-06-07 08:26 | External Medical Summary | Summary of Care ---
Author Name Unknown Organization [place] [address] Phone Care Team Providers Care Meat Cutter Name Role Phone Yariel Cardoza MD Primary Care Provide r Reason for Visit * Reason Comments MED REQUEST Encounter Details Date Type Department Care Team Description 06/13/2018 Telephone Internal Medicine [address] [address] Yariel Cardoza MD [address] [place] [address] MED REQUEST Allergies Active Allergy Reactions Severity Noted Date Comments Adhesive Tape 06/29/2003 Sensitive to Naproxen Hives 05/28/2015 Ivp Dye Hives 08/20/2000 Latex Other (Please comment) 01/05/2015 Contact rash Ibuprofen Rash 01/05/2015 as of this encounter Medications Prescription Sig. Disp. Refills Start Date End Date Status VITAMIN D-3 1000 UNITS PO CAPS 1 daily Active camphor-menthol (SARNA) 0.5-0.5 % lotion Apply [...] Tablet Take 81 mg by mouth daily. Active atorvaSTATin (LIPITOR) 20 MG TabletIndications :Dyslipidemia, goal LDL below 100 TAKE 1 TABLET BY MOUTH DAILY. 90 Tab 1 01/17/2018 Active hydrochlorothiazi de (HYDRODIURIL) 25 MG Tablet TAKE ONE TABLET BY MOUTH DAILY 90 Tab 1 01/17/2018 Active VENTOLIN HFA 108 (90 Base) MCG/ACT inhaler INHALE 2 PUFFS BY MOUTH EVERY 4 HOURS NEEDED FOR WHEEZING. 1 Inhaler 5 02/10/2018 Active montelukast (SINGULAIR) 10 MG TabletIndications :Gastroesophageal reflux disease without esophagitis,COPD, severe (HCC),Acute non-recurrent maxillary sinusitis Take 1 Tab by mouth daily. 30 Tab 5 02/21/2018 Active KLOR-CON 10 10 MEQ TBCR TAKE [...] AEPB Inhale 1 Puff by mouth daily. Active nystatin 943235 UNIT/ML suspension Swish and swallow 500,000 Units 4 times a day. Active omeprazole (PRILOSEC) 20 MG CPDRIndications:G astroesophageal reflux disease without esophagitis Take 1 Cap by mouth 2 times a day 30 minutes before morning and evening meals. 60 Cap 5 06/13/2018 Active omeprazole (PRILOSEC) 20 MG CPDRIndications:G astroesophageal reflux disease without esophagitis Take 1 Cap by mouth daily. 1 hour before the first meal of the day 30 Cap 5 02/21/2018 06/13/20 18 Discontinued as of this encounter Active Problems Problem Noted Date HTN, goal below 140/90 08/09/2017 Pulmonary hypertension (HCC) 05/07/2017 Lumbar spinal stenosis 02/18/2017 Primary osteoarthritis of right knee Multiple thyroid nodules 09/09/2016 Rhinitis, nonallergic 03/30/2016 ETD (eustachian tube dysfunction) 2015 Pruritic disorder 03/30/2016 Urinary, incontinence, stress female Lumbar degenerative disc disease 016 Lumbar facet arthropathy (HCC) 6 Obesity, Class II, BMI 35.0-39.9, with c omorbidity (see actual BMI) 01/19/2016 COPD, severe (HCC) 12/21/2015 Dyslipidemia, goal LDL below 100 016 Kidney stone 08/22/2015 Slow transit constipation 07/20/2015 Tubular adenoma of [...] /min) 10/16/2015 08/09/2017 Allergic rhinitis 09/21/2015 03/30/2016 Dyslipidemia, goal LDL below 130 08/22/2015 10/16/2015 Generalized osteoarthritis 08/22/201503/30 COPD, severity to be determined ([facility]) 07/20/2015 12/21/2015 ACQ ESOPHAG DIVERTICULUM 12/22/2004 015 [...] Conjugate Vacc, 13 Valent (Prevnar) 09/21/2015 Pneumococcal Polyvalent Vacc (Pneumovax) 017 Seasonal Influenza, Quadriva lent, No Preserve, 6 Mons & Above, IM 07/31/2017 Seasonal Influenza, Quadrivalent, No Preserve, I M [...] Assigned at Date Recorded Not on file as of this encounter Miscellaneous Notes * Telephone Encounter - Harmony Sarkar LPN - 06/13/2018 9:30 AM EDT Patient aware and receptive to instructions. * Telephone Encounter - Yariel Cardoza MD - 06/13/2018 9:25 AM EDT Sent to pharmacy. Recommend appt if not improving with twice a day. * Telephone Encounter - Mallory Angel, product consultant - 06/13/2018 8:59 AM EDT Patient calling back about previous message. Please advise. Pt needs a new Rx of omeprazole BID for30 days. ThanksMallory Receptionist Scheduler Pharmacy Refill Call Center 06/13/2018,8:59 AM * Telephone Encounter - Bella Elizabeth, product consultant - 06/13/2018 8:54 AM EDT Pt called in requesting refill on omeprazole (PRILOSEC) 20 MG CPDR. Pt stated she has been having very bad acid reflux. Pt started taking 2 tablets daily. Pt can be reached at [phone]. Please advise and approve if appropriate. Thank you, Bella Elizabeth Receptionist Scheduler Refill Call Center 06/13/2018, 8:57 AM in this encounter Plan of Treatment Upcoming Encounters Date Type Specialty Care Team Description 07/22/2018 Procedure Only Endoscopy Shakila Rocha, DO [address] [facility] [place] [address] 07/28/2018 Office Visit Internal Medicine Yariel Cardoza MD [address] [place] [address] [place] [address] Health Maintenance Due Date Last Done Comments Zoster Vaccines HMT (1 of 2) 1993 *ADVANCE DIRECTIVE NOT ON FILE 12/23/2015 *DEPRESSION SCREENING, LUI Lao FOR PTS 18 AND OVER 01/03/2018 *LDL AFTER STARTING A STATIN 04/19/2018 Influenza Vaccine (FLU shot) (#1) 2018 07/31/2017, 07/21/2016, 07/20/2015, Additional history exists CKD GFR USE SMARTSET 78452 06/24/201812/22, 09/12/2017, 04/17/2017, Additional history exists BREAST CANCER SCREENING DISC USSION YEARLY AGES 40-75 12/09/2018 12/09/2017, 10/08/2016, 10/06/2015, Additional history exists CKD HGB USE SMARTSET 14487 12/22/201812/22, 09/12/2017, 04/17/2017, Additional history exists CKD PHOS USE SMARTSET 89459 12/22/201812/05, 09/12/2017, 03/19/2017, Additional history exists CKD URINE PROTEIN/CREATININE RATION OR URINE MICROALBUMIN YEARLY USE SMARTSET 68037 12/22/2018 12/22/2017, 03/19/2017, 02/09/2017, Additional history exists DIABETES SCREEN EVERY 3 YRS- AGE 45 AND ABOVE 12/22/2020 12/22/2017, 09/12/2017, 04/17/2017, Additional history exists COLONOSCOPY-EVERY 3 YRS AGES 18-100 03/26/2021 03/26/2018, 03/08/2015 DXA-SCREENING EVERY 7 YRS-US E SMARTSET# [id number] TO ORDER 08/17/2022 08/17/2015 DTaP,Tdap,and Td Vaccines (2 - Td) 04/19/20282017, 05/03/2004 PNEUMOCOCCAL ADULT 65 YRS AND OVER Completed 2016, 09/21/2015 as of this encounter Implants Not on fileas of this encounter Visit Diagnoses Diagnosis Gastroesophageal reflux dise ase without esophagitis Esophageal reflux in this encounter
--- OUTSIDE RECORDS SUMMARY | 2023-06-07 08:26 | External Medical Summary | Summary of Care ---
Author Name Unknown Organization [place] [address] Phone Care Team Providers Care Rod Mill Tender Name Role Phone Yariel Cardoza MD Primary Care Provide r Reason for Visit * Reason Comments eRx-Medication Refill Encounter Details Date Type Department Care Team Description 06/10/2018 Refill Internal Medicine [address] [place] [address] Bettye Valenzuela PA-C [address] [place] [address] [place] [address] Allergies Active Allergy Reactions [...] FOR WHEEZING. 1 Inhaler 5 02/10/2018 Active omeprazole (PRILOSEC) 20 MG CPDRIndications:G astroesophageal reflux disease without esophagitis Take 1 Cap by mouth daily. 1 hour before the first meal of the day 30 Cap 5 02/21/2018 Active montelukast (SINGULAIR) 10 MG TabletIndications :Gastroesophageal [...] FOR DIZZINESS/VERTIGO 10 Tab 0 06/11/2018 Active meclizine (ANTIVERT) 25 MG Tablet TAKE 1 TAB EVERY 6HRS NEEDED FOR DIZZINESS/VERTIGO 10 Tab 0 09/10/2017 06/10/20 18 Discontinued as of this encounter Active [...] omorbidity (see actual BMI) 01/19/2016 COPD, severe ([facility]) 12/21/2015 Dyslipidemia, goal LDL below 100 016 [...] osteoarthritis 08/22/201503/30 COPD, severity to be determined ([facility]) 07/20/2015 12/21/2015 ACQ ESOPHAG DIVERTICULUM 12/22/2004 015 [...] encounter Miscellaneous Notes * Telephone Encounter - Jayson Aguirre PA-C - 06/11/2018 2:31 PM EDT Signed Prescriptions: Disp Refills meclizine (ANTIVERT) 25 MG Tablet 10 Tab 0 Sig: TAKE 1 TABLET BY MOUTH ONCE EVERY 6HRS NEEDED FOR DIZZINESS/VERTIGO Authorizing Provider: JAYSON AGUIRRE * Telephone Encounter - Corrina Mazariegos LPN - 06/11/2018 11:22 AM EDT Pending Prescriptions: Disp Refills meclizine (ANTIVERT) 25 MG Tablet [Pharma*10 Tab 0 Sig: TAKE 1 TABLET BY MOUTH ONCE EVERY 6HRS NEEDED FOR DIZZINESS/VERTIGO * Telephone Encounter - Corrina MazariegosKRISTIAN - 06/11/2018 11:22 AM EDT Formatting of this note may be different from the original. 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 Kidney stone N20.0 Dyslipidemia, goal LDL below 100 E78.5 COPD, severe (HCC) J44.9 Obesity, Class II, BMI 35.0-39.9, with comorbidity (see actual BMI) E66.9 Lumbar degenerative disc disease M51.36 Lumbar facet arthropathy (HCC) M46.96 Urinary, incontinence, stress female N39.3 Rhinitis, nonallergic J31.0 ETD (eustachian tube dysfunction) H69.80 Pruritic disorder L29.9 Multiple thyroid nodules E04.2 Lumbar spinal stenosis M48.061 Primary osteoarthritis of right knee M17.11 Pulmonary hypertension (HCC) I27.20 HTN, goal below 140/90 I10 Labs: CREATININE-OUTSIDE LAB(MG/DL) Grisel Dt/Tm Resulted Value Status 12/22/17 12/24/17 0.72 FINAL POTASSIUM-OUTSIDE LAB(MMOL/L) Grisel Dt/Tm Resulted Value Status 12/22/17 12/24/17 4.0 FINAL TSH(uIU/mL) Grisel Dt/Tm Resulted Value Status 04/17/17 10:53A 04/17/17 0.69 FINAL LDL (CALCULATED)(mg/dL) Grisel Dt/Tm Resulted Value Status 03/19/17 8:05A 03/19/17 50 FINAL 09/27/16 8:51A 09/27/16 68 FINAL ALT(U/L) Grisel Dt/Tm Resulted Value Status 09/12/17 10:17A 09/12/17 16 FINAL Hemoglobin AIC Results: HEMOGLOBIN, A1C(%) Grisel Dt/Tm Resulted Value Status 03/19/17 8:05A 03/19/17 5.7 FINAL in this encounter Plan of Treatment Upcoming Encounters Date Type Specialty Care Team Description 07/22/2018 Procedure Only Endoscopy Shakila Rocha, 132 [place] [address] [phone] 07/28/2018 Office Visit Internal Medicine Yariel Cardoza MD [address] [place] [address] [place] [address] Health Maintenance Due Date Last Done Comments Zoster Vaccines HMT (1 of 2) 1993 *ADVANCE DIRECTIVE NOT ON FILE 12/23/2015 *DEPRESSION SCREENING, LUI Lao FOR PTS 18 AND OVER 01/03/2018 *LDL AFTER STARTING A STATIN 04/19/2018 Influenza Vaccine (FLU shot) (#1) 2018 07/31/2017, 07/21/2016, 07/20/2015, Additional history exists CKD GFR USE SMARTSET 35461 06/24/201812/22, 09/12/2017, 04/17/2017, Additional history exists BREAST CANCER SCREENING DISC USSION YEARLY AGES 40-75 12/09/2018 12/09/2017, 10/08/2016, 10/06/2015, Additional history exists CKD HGB USE SMARTSET 56132 12/22/201812/22, 09/12/2017, 04/17/2017, Additional history exists CKD PHOS USE SMARTSET 63818 12/22/201812/05, 09/12/2017, 03/19/2017, Additional history exists CKD URINE PROTEIN/CREATININE RATION OR URINE MICROALBUMIN YEARLY USE SMARTSET 41129 12/22/2018 12/22/2017, 03/19/2017, 02/09/2017, Additional history exists [...]
--- OUTSIDE RECORDS SUMMARY | 2023-06-07 08:26 | External Medical Summary ---
Author Name Unknown Address [address] [id number] Phone Organization K01:[facility] [address] [id number] Laboratory Report Ordering Provider Test Date Status SABRA PERDOMO MD 07/28/2018 14:30:00 Final Observation Date Value Abnormality Reference Status BUN 07/28/2018 22:28 20 6-20 Fin al Creatinine 07/28/2018 22:28 1.0 0.5-1.0 Fi nal Performing Location [facility] [address] [facility] [address]
--- OUTSIDE RECORDS SUMMARY | 2023-06-07 08:26 | External Medical Summary | Summary of Care ---
Author Name Unknown Organization [place] [address] Phone Care Team Providers Care Food Safety Technician Name Role Phone Leanne Cardoza MD Primary Care Provide r Reason for Visit * Reason Comments eRx-Medication Refill Encounter Details Date Type Department Care Team Description 07/09/2018 Refill Internal Medicine [address] [address] Hillary White PA-C [address] [place] [address] [place] [address] Gastroesophageal reflux disease without esophagitis;COPD, severe (HCC);Acute non-recurrent maxillary sinusitis Allergies Active Allergy Reactions Severity Noted Date [...] 1 Puff by mouth daily. Active nystatin 136150 UNIT/ML suspension Swish and swallow 500,000 Units 4 times a day. Active omeprazole (PRILOSEC) 20 MG CPDRIndications:G astroesophageal reflux disease without esophagitis Take 1 Cap by mouth 2 times a day 30 minutes before morning and evening meals. 60 Cap 5 06/13/2018 Active montelukast (SINGULAIR) 10 MG TabletIndications :Gastroesophageal reflux disease without esophagitis,COPD, severe (HCC),Acute non-recurrent maxillary sinusitis TAKE 1 TABLET BY MOUTH EVERY DAY 30 Tab 5 07/09/2018 Active montelukast (SINGULAIR) 10 MG TabletIndications :Gastroesophageal reflux disease without esophagitis,COPD, severe (HCC),Acute non-recurrent maxillary sinusitis Take 1 Tab by mouth daily. 30 Tab 5 02/21/2018 07/09/20 18 Discontinued as of this encounter Active Problems Problem Noted Date HTN, goal below 140/90 08/09/2017 Pulmonary hypertension (HCC) 05/07/2017 Lumbar spinal stenosis 02/18/2017 Primary osteoarthritis of right knee Multiple thyroid nodules 09/09/2016 Rhinitis, nonallergic 03/30/2016 ETD (eustachian tube dysfunction) 2015 Pruritic disorder 03/30/2016 Urinary, incontinence, stress female Lumbar degenerative disc disease 016 Lumbar facet arthropathy 02/06/2016 Obesity, Class II, BMI 35.0-39.9, with c omorbidity (see actual BMI) 01/19/2016 COPD, severe ([facility]) 12/21/2015 Dyslipidemia, goal LDL below [...] chronic, stage III (GFR 30-59 ml /min) ([facility]) 10/16/2015 08/09/2017 Allergic rhinitis 09/21/2015 03/30/2016 Dyslipidemia, goal LDL below 130 08/22/2015 10/16/2015 Generalized osteoarthritis 08/22/201503/30 COPD, severity to be determined ([facility]) 07/20/2015 12/21/2015 ACQ ESOPHAG DIVERTICULUM [...] Telephone Encounter - Leanne Cardoza MD - 07/09/2018 12:11 PM EDT Signed Prescriptions: Disp Refills montelukast (SINGULAIR) 10 MG Tablet 30 Tab 5 Sig: TAKE 1 TABLET BY MOUTH EVERY DAY Authorizing Provider: LEANNE CARDOZA Refused Prescriptions: Disp Refills omeprazole (PRILOSEC) 20 MG CPDR [Pharmacy*30 Cap 5 Sig: TAKE 1 CAPSULE BY MOUTH DAILY 1 HOUR BEFORE THE FIRST MEAL OF THE DAY Refused By: MARIA ANTONIA MEIER Reason for Refusal: Duplicate Request * Telephone Encounter - Maria Antonia Meier LPN - 07/09/2018 9:27 AM EDT Pending Prescriptions: Disp Refills montelukast (SINGULAIR) 10 MG Tablet [Pha*30 Tab 5 Sig: TAKE 1 TABLET BY MOUTH EVERY DAY Refused Prescriptions: Disp Refills omeprazole (PRILOSEC) 20 MG CPDR [Pharmacy*30 Cap 5 Sig: TAKE 1 CAPSULE BY MOUTH DAILY 1 HOUR BEFORE THE FIRST MEAL OF THE DAY Refused By: MARIA ANTONIA MEIER Reason for Refusal: Duplicate Request * Telephone Encounter - Maria Antonia Meier LPN - 07/09/2018 9:25 AM EDT Formatting of this note may be different from the original. Pending Prescriptions: Disp Refills montelukast (SINGULAIR) 10 MG Tablet [Pha*30 Tab 5 Sig: TAKE 1 TABLET BY MOUTH EVERY DAY omeprazole (PRILOSEC) 20 MG CPDR [Pharmac*30 Cap 5 Sig: TAKE 1 CAPSULE BY MOUTH DAILY 1 HOUR BEFORE THE FIRST MEAL OF THE DAY Last Office Visit: 04/21/2018 Next Office Visit: 07/28/2018 Scheduled Provider(s): Leanne Cardoza MD If no future appointments scheduled, and last appointment is greater than a year ago, please schedule patient for a follow-up appointment Last date the medication was ordered: 02/21/18 Patient Phone Numbers Labs: Lab Results Component Value Date/Time CREAT 0.72 12/22/2017 CREAT 0.9 09/12/2017 10:17 AM POTASSIUM 4.4 09/12/2017 10:17 AM TSH 0.69 04/17/2017 10:53 AM LDLCALC 50 03/19/2017 08:05 AM ALT 16 09/12/2017 10:17 AM HGBA1C 5.7 03/19/2017 08:05 AM in this encounter Plan of Treatment Upcoming Encounters Date Type Specialty Care Team Description 07/22/2018 Procedure Only Endoscopy Shakila Rocha, DO [address] [place] [address] [phone] 07/28/2018 Office Visit Internal Medicine Leanne Cardoza MD [address] [place] [address] [place] [address] [phone] Health Maintenance Due Date Last Done Comments *ADVANCE DIRECTIVE NOT ON FILE 12/23/2015 *DEPRESSION SCREENING, LUI Lao FOR PTS 18 AND OVER 01/03/2018 Influenza Vaccine (FLU shot) (#1) 2018 07/31/2017, 07/21/2016, 07/20/2015, Additional history exists CKD GFR USE SMARTSET 35475 06/24/201812/22, 09/12/2017, 04/17/2017, Additional history exists BREAST CANCER SCREENING DISC USSION YEARLY AGES 40-75 12/09/2018 12/09/2017, 10/08/2016, 10/06/2015, Additional history exists CKD HGB USE SMARTSET 85706 12/22/201812/22, 09/12/2017, 04/17/2017, Additional history exists CKD PHOS USE SMARTSET 42247 12/22/201812/05, 09/12/2017, 03/19/2017, Additional history exists CKD URINE PROTEIN/CREATININE RATION OR URINE MICROALBUMIN YEARLY USE SMARTSET 72333 12/22/2018 12/22/2017, 03/19/2017, 02/09/2017, Additional history exists [...] reflux dise ase without esophagitis Esophageal reflux COPD, severe (HCC) Chronic airway obstruction, not elsewhere classified Acute non-recurrent maxillar y sinusitis in this encounter
--- OUTSIDE RECORDS SUMMARY | 2023-06-07 08:26 | External Medical Summary ---
Author Name Unknown Address [address] [place] [address] [place] [address] Phone Organization K08:[address] [place] [address] Laboratory Report Ordering Provider Test Date Status SABRA PERDOMO MD 07/28/2018 14:30:00 Final Observation Date Value Abnormality Reference Status Fasting status - Reported 07/28/2018 14:34 NOT FASTING Final Triglyceride 07/28/2018 22:28 229 Above high normal <200 Final Performing Location [address] [place] [address]
--- OUTSIDE RECORDS SUMMARY | 2023-06-07 08:26 | External Medical Summary ---
Author Name Unknown Address [facility] [place] [address] Phone Organization K01:[facility] [address] [id number] Laboratory Report Ordering Provider Test Date Status SABRA PERDOMO MD 07/28/2018 14:30:00 Final Observation Date Value Abnormality Reference Status ALT (Alanine aminotransferase) 07/28/2018 22:28 22 1035 Final Performing Location [facility] [address] [facility] [address]
--- OUTSIDE RECORDS SUMMARY | 2023-06-07 08:26 | External Medical Summary | Summary of Care ---
Author Name Unknown Organization [place] [address] Phone Care Team Providers Care Dietitian Therapeutic Name Role Phone Yariel Cardoza MD Primary Care Provide r Encounter Details Date Type Department Care Team Description 06/11/2018 Scan Encounter Unspecified Department <No scans attached> [...] mouth daily. Active atorvaSTATin (LIPITOR) 20 MG TabletIndications:D yslipidemia, goal LDL below 100 TAKE 1 TABLET BY MOUTH DAILY. 90 Tab 1 01/17/2018 Active hydrochlorothiazide (HYDRODIURIL) 25 MG Tablet TAKE ONE TABLET BY MOUTH DAILY 90 Tab 1 01/17/2018 Active VENTOLIN HFA 108 (90 Base) MCG/ACT inhaler INHALE 2 PUFFS BY MOUTH EVERY 4 HOURS NEEDED FOR WHEEZING. 1 Inhaler 5 02/10/2018 Active omeprazole (PRILOSEC) 20 MG CPDRIndications:Gas troesophageal reflux disease without esophagitis Take 1 Cap by mouth daily. 1 hour before the first meal of the day 30 Cap 5 02/21/2018 Active montelukast (SINGULAIR) 10 MG TabletIndications:G astroesophageal reflux disease without esophagitis,COPD, severe (HCC),Acute non-recurrent [...] FOR DIZZINESS/VERTIGO 10 Tab 0 06/11/2018 Active as of this encounter Active Problems [...] osteoarthritis 08/22/201503/30 COPD, severity to be determined ([facility]) 07/20/2015 12/21/2015 ACQ ESOPHAG DIVERTICULUM 12/22/2004 [...] Not on file as of this encounter Plan of Treatment Upcoming Encounters Date Type Specialty Care Team Description 07/22/2018 Procedure Only Endoscopy Shakila Rocha, DO [address] [facility] [place] [address] [phone] 07/28/2018 Office Visit Internal Medicine Yariel Cardoza MD [address] [place] [address] [place] [address] [phone] Health Maintenance Due Date Last Done Comments Zoster Vaccines HMT (1 of 2) 1993 *ADVANCE DIRECTIVE NOT ON FILE 12/23/2015 *DEPRESSION SCREENING, LUI Lao FOR PTS 18 AND OVER 01/03/2018 *LDL AFTER STARTING A STATIN 04/19/2018 Influenza Vaccine (FLU shot) (#1) 2018 07/31/2017, 07/21/2016, 07/20/2015, Additional history exists CKD GFR USE SMARTSET 32048 06/24/201812/22, 09/12/2017, 04/17/2017, Additional history exists BREAST CANCER SCREENING DISC USSION YEARLY AGES 40-75 12/09/2018 12/09/2017, 10/08/2016, 10/06/2015, Additional history exists CKD HGB USE SMARTSET 75570 12/22/201812/22, 09/12/2017, 04/17/2017, Additional history exists CKD PHOS USE SMARTSET 46218 12/22/201812/05, 09/12/2017, 03/19/2017, Additional history exists CKD URINE PROTEIN/CREATININE RATION OR URINE MICROALBUMIN YEARLY USE SMARTSET 39402 12/22/2018 12/22/2017, 03/19/2017, 02/09/2017, Additional history exists [...]
--- OUTSIDE RECORDS SUMMARY | 2023-06-07 08:26 | External Medical Summary | Summary of Care ---
Author Name Unknown Organization [place] [address] Phone Care Team Providers Care Maintenance Scheduler Name Role Phone Yariel Cardoza MD Primary Care Provide r Reason for Visit * Reason Comments ADVICE Emergency Room Follo wup Encounter Details Date Type Department Care Team Description 06/09/2017 Telephone Internal Medicine [address] [address] Amarilys Viveros MD [address] [place] [address] ADVICE (Emergency Room Followup ) Allergies Active Allergy Reactions Severity Noted [...] directed continuous. 1 Each 0 02/18/2017 Active albuterol-ipratro pium (DUONEB) 2.5-0.5 MG/3ML nebulizer solutionIndicatio ns:COPD, severe (HCC) INHALE 3 MLS VIA NEBULIZER EVERY 4 HOURS NEEDED FOR COUGH, SHORTNESS OF BREATH OR WHEEZING. 120 Vial 2 11/12/2016 12/21/19 18 Discontinued albuterol (VENTOLIN HFA) 108 (90 BASE) MCG/ACT inhaler Inhale 2 Puffs by mouth every 4 hours as needed for Wheezing. 3 Inhaler 1 01/07/2017 02/10/20 18 Discontinued atorvaSTATin (LIPITOR) 20 MG TabletIndications :Dyslipidemia, goal LDL below 100 TAKE ONE TABLET BY MOUTH DAILY 90 Tab 1 01/16/2017 07/08/20 17 Discontinued hydrochlorothiazi de (HYDRODIURIL) 25 MG Tablet TAKE ONE TABLET BY MOUTH DAILY 90 Tab 1 01/16/2017 07/12/20 17 Discontinued KLOR-CON 10 10 MEQ TBCR TAKE 1 TAB BY MOUTH DAILY. 30 Tab 5 03/07/2017 08/30/20 17 Discontinued furosemide (LASIX) 20 MG TabletIndications :Bilateral edema of lower extremity Take 1 Tab by mouth daily as needed (swelling). for fluid accumulation or weight gain 30 Tab 0 03/19/2017 06/19/20 17 Discontinued atenolol (TENORMIN) 50 MG Tablet Take 0.5 Tabs by mouth daily. 90 Tab 1 06/06/2017 02/25/20 18 Discontinued as of this encounter Active [...] osteoarthritis 08/22/201503/30 COPD, severity to be determined (HCC) 07/20/2015 12/21/2015 ACQ ESOPHAG DIVERTICULUM 12/22/2004 015 [...] Pneumococcal Polyvalent Vacc (Pneumovax) 017 Seasonal Influenza, Quadrivalent, No Preserve, I M 07/21/2016,07/20/2015 Seasonal Influenza, Trivalen t, with Preserve, 3yr & Above, Split 08/17/2006,08/05/2003 TD - Tetanus/Diptheria (ADULT) 05/03/2004 0 05/03/2014 as of this encounter Social History Tobacco [...] Endoscopy Shakila Rocha, DO [address] [place] [address] [phone] 07/28/2018 Office Visit Internal Medicine Yariel Cardoza MD [address] [place] [address] [place] [address] [phone] Health Maintenance Due Date Last Done Comments Zoster Vaccines HMT (1 of 2) 1993 *ADVANCE DIRECTIVE NOT ON FILE 12/23/2015 *DEPRESSION SCREENING, ANNUA Tashia FOR PTS 18 AND OVER 01/03/2018 CKD LDL USE SMARTSET 55924 ( STAGE 3) [place] [address] (STAGE 4) 03/19/2018 03/19/2017, 09/27/2016, 02/18/2016, Additional history exists *LDL AFTER STARTING A STATIN 04/19/2018 Influenza Vaccine (FLU shot) (#1) 2018 07/31/2017, 07/21/2016, 07/20/2015, Additional history exists CKD GFR USE SMARTSET 14880 06/24/201812/22, 09/12/2017, 04/17/2017, Additional history exists BREAST CANCER SCREENING DISC USSION YEARLY AGES 40-75 12/09/2018 12/09/2017, 10/08/2016, 10/06/2015, Additional history exists CKD HGB USE SMARTSET 31332 12/22/201812/22, 09/12/2017, 04/17/2017, Additional history exists CKD PHOS USE SMARTSET 37677 12/22/201812/05, 09/12/2017, 03/19/2017, Additional history exists CKD URINE PROTEIN/CREATININE RATION OR URINE MICROALBUMIN YEARLY USE SMARTSET 66150 12/22/2018 12/22/2017, 03/19/2017, 02/09/2017, Additional history exists [...]
--- OUTSIDE RECORDS SUMMARY | 2023-06-07 08:26 | External Medical Summary | Summary of Care ---
Author Name Unknown Organization [place] [address] Phone Care Team Providers Care Tong Hooker Name Role Phone Leanne Cardoza MD Primary Care Provide r Reason for Visit * Reason Comments eRx-Medication Refill Encounter Details Date Type Department Care Team Description 05/23/2018 Refill Internal Medicine [address] [id number] Noemi Cortez PA-C [address] [place] [address] Allergies Active Allergy Reactions Severity Noted [...] AFFECTED AREA TWICE DAILY 0 06/20/2017 Active meclizine (ANTIVERT) 25 MG Tablet TAKE 1 TAB EVERY 6HRS NEEDED FOR DIZZINESS/VERTIGO 10 Tab 0 09/10/2017 Active furosemide (LASIX) 20 MG TabletIndications :Bilateral [...] mouth daily. 90 Tab 1 05/23/2018 Active atenolol (TENORMIN) 25 MG Tablet Take 1 Tab by mouth daily. 90 Tab 1 02/24/2018 05/23/20 18 Discontinued as of this encounter Active [...] omorbidity (see actual BMI) 01/19/2016 COPD, severe ([facility]) 12/21/2015 Dyslipidemia, goal LDL below 100 016 [...] osteoarthritis 08/22/201503/30 COPD, severity to be determined ([facility]) 07/20/2015 12/21/2015 ACQ ESOPHAG DIVERTICULUM 12/22/2004 [...] Telephone Encounter - Leanne Cardoza MD - 05/23/2018 11:59 AM EDT Signed Prescriptions: Disp Refills atenolol (TENORMIN) 25 MG Tablet 90 Tab 1 Sig: Take 1 Tab by mouth daily. Authorizing Provider: LEANNE CARDOZA Refused Prescriptions: Disp Refills atenolol (TENORMIN) 50 MG Tablet [Pharmacy*90 Tab 1 Sig: TAKE 1 TABLET BY MOUTH DAILY. Refused By: LEANNE CARDOZA Reason for Refusal: Dose needs clarification * Telephone Encounter - Leanne Cardoza MD - 05/23/2018 8:56 AM EDT Refused Prescriptions: Disp Refills atenolol (TENORMIN) 50 MG Tablet [Pharmacy*90 Tab 1 Sig: TAKE 1 TABLET BY MOUTH DAILY. Refused By: LEANNE CARDOZA Reason for Refusal: Dose needs clarification * Telephone Encounter - Haven García LPN - 05/23/2018 8:44 AM EDT Pending Prescriptions: Disp Refills atenolol (TENORMIN) 50 MG Tablet [Pharmac*90 Tab 1 Sig: TAKE 1 TABLET BY MOUTH DAILY. * Telephone Encounter - Haven García LPN - 05/23/2018 8:44 AM EDT Formatting of this note may be different from the original. Pending Prescriptions: Disp Refills atenolol (TENORMIN) 50 MG Tablet [Pharmac*90 Tab 1 Sig: TAKE 1 TABLET BY MOUTH DAILY. Last Office Visit: 04/21/2018 Next Office Visit: 07/28/2018 Scheduled Provider(s): Leanne Cardoza MD Last date the medication was ordered: Ok to refill? Med was discontinued. 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-39.9, with comorbidity (see actual BMI) E66.9 Lumbar degenerative disc disease M51.36 Lumbar facet arthropathy ([facility]) M46.96 Urinary, incontinence, stress female N39.3 Rhinitis, [...] Encounters Date Type Specialty Care Team Description 06/04/2018 Office Visit Dermatology Jennifer Sebastian PA-C [address] [place] [address] 07/22/2018 Procedure Only Endoscopy Shakila Rocha, DO [address] [place] [address] 07/28/2018 Office Visit Internal Medicine Leanne Cardoza MD [address] [place] [address] [place] [address] [phone] Health Maintenance Due Date Last Done Comments *ADVANCE DIRECTIVE NOT ON FILE 12/23/2015 *DEPRESSION SCREENING, LUI Lao FOR PTS 18 AND OVER 01/03/2018 CKD [place] USE SMARTSET 41295 ( STAGE 3) [place] [address] (STAGE 4) 03/19/2018 03/19/2017, 09/27/2016, 02/18/2016, Additional history exists *LDL AFTER STARTING A STATIN 04/19/2018 Influenza Vaccine (FLU shot) (#1) 2018 07/31/2017, 07/21/2016, 07/20/2015, Additional history exists CKD GFR USE SMARTSET 42895 06/24/201812/22, 09/12/2017, 04/17/2017, Additional history exists BREAST CANCER SCREENING DISC USSION YEARLY AGES 40-75 12/09/2018 12/09/2017, 10/08/2016, 10/06/2015, Additional history exists CKD HGB USE SMARTSET 46774 12/22/201812/22, 09/12/2017, 04/17/2017, Additional history exists CKD PHOS USE SMARTSET 20867 12/22/201812/05, 09/12/2017, 03/19/2017, Additional history exists CKD URINE PROTEIN/CREATININE RATION OR URINE MICROALBUMIN YEARLY USE SMARTSET 59750 12/22/2018 12/22/2017, 03/19/2017, 02/09/2017, Additional history exists DIABETES SCREEN EVERY 3 YRS- AGE 45 AND ABOVE 12/22/2020 12/22/2017, 09/12/2017, 04/17/2017, Additional history exists COLONOSCOPY-EVERY 3 YRS AGES 18-100 03/26/2021 03/26/2018, 03/08/2015 DXA-SCREENING EVERY 7 YRS- E SMARTSET# 3348 TO ORDER 08/17/2022 08/17/2015 DTaP,Tdap,and Td Vaccines (2 - Td) 04/19/20282017, 05/03/2004 PNEUMOCOCCAL ADULT 65 YRS AND OVER Completed 2016, 09/21/2015 as of this encounter Implants Not on fileas of this encounter
--- OUTSIDE RECORDS SUMMARY | 2023-06-07 08:26 | External Medical Summary | Summary of Care ---
Author Name Unknown Organization [place] [address] Phone Care Team Providers Care Chucking Lathe Operator Name Role Phone Yariel Cardoza MD Primary Care Provide r Encounter Details Date Type Department Care Team Description 07/22/2018 Result Scan Gastroenterology, Health system [address] [place] [address] Shakila Rocha DO [address] [facility] [place] [address] [phone] <No scans attached> Allergies Active Allergy Reactions [...] 1 Puff by mouth daily. Active nystatin 621274 UNIT/ML suspension Swish and swallow 500,000 Units 4 times a day. Active montelukast (SINGULAIR) 10 MG TabletIndications:G astroesophageal reflux disease without esophagitis,COPD, severe (HCC),Acute non-recurrent maxillary sinusitis TAKE 1 TABLET BY MOUTH EVERY DAY 30 Tab 5 07/09/2018 Active omeprazole (PRILOSEC) 20 MG CPDRIndications:Gas troesophageal reflux disease without esophagitis Take 1 Cap by mouth 2 times a day 30 minutes before morning and evening meals. 60 Cap 5 07/17/2018 Active as of this encounter Active Problems [...] of 35.0 to 39.9 with serious comorbidity ([facility]) 01/19/2016 Overview: ICD-10 update of inactive diagnosis COPD, severe ([facility]) 12/21/2015 Dyslipidemia, goal LDL below 100 016 [...] chronic, stage III (GFR 30-59 ml /min) ([facility]) 10/16/2015 08/09/2017 Allergic rhinitis 09/21/2015 03/30/2016 Dyslipidemia, goal LDL below 130 08/22/2015 10/16/2015 Generalized osteoarthritis 08/22/201503/30 COPD, severity to be determined ([facility]) 07/20/2015 12/21/2015 ACQ ESOPHAG DIVERTICULUM 12/22/2004 015 [...] Encounters Date Type Specialty Care Team Description 07/28/2018 Office Visit Internal Medicine Yariel Cardoza MD [address] [place] [address] [place] [address] Health Maintenance Due Date Last Done Comments *ADVANCE DIRECTIVE NOT ON FILE 12/23/2015 *DEPRESSION SCREENING, ANNUA L FOR PTS 18 AND OVER 01/03/2018 Influenza Vaccine (FLU shot) (#1) 2018 07/31/2017, 07/21/2016, 07/20/2015, Additional history exists CKD GFR USE SMARTSET 55069 06/24/201812/22, 09/12/2017, 04/17/2017, Additional history exists BREAST CANCER SCREENING DISC USSION YEARLY AGES 40-75 12/09/2018 12/09/2017, 10/08/2016, 10/06/2015, Additional history exists CKD HGB USE SMARTSET 73896 12/22/201812/22, 09/12/2017, 04/17/2017, Additional history exists CKD PHOS USE SMARTSET 86679 12/22/201812/05, 09/12/2017, 03/19/2017, Additional history exists CKD URINE PROTEIN/CREATININE RATION OR URINE MICROALBUMIN YEARLY USE SMARTSET 82998 12/22/2018 12/22/2017, 03/19/2017, 02/09/2017, Additional history exists [...] Implants Not on fileas of this encounter Results * PATHOLOGY SCANNED RESULT (07/22/2018) in this encounter
--- OUTSIDE RECORDS SUMMARY | 2023-06-07 08:26 | External Medical Summary | Summary of Care ---
Author Name Unknown Organization [place] [address] Phone Care Team Providers Care Yarn Rewinder Name Role Phone Leanne Cardoza MD Primary Care Provide r Reason for Visit * Reason Comments eRx-Medication Refill Encounter Details Date Type Department Care Team Description 07/25/2018 Refill Internal Medicine [address] [place] [address] Josie Ryan PA-C [address] [place] [address] [place] [phone] Allergies Active Allergy Reactions Severity Noted Date [...] 1 Puff by mouth daily. Active nystatin 107997 UNIT/ML suspension Swish and swallow 500,000 Units 4 times a day. Active montelukast (SINGULAIR) 10 MG TabletIndications :Gastroesophageal reflux disease without esophagitis,COPD, severe (HCC),Acute non-recurrent maxillary sinusitis TAKE 1 TABLET BY MOUTH EVERY DAY 30 Tab 5 07/09/2018 Active omeprazole (PRILOSEC) 20 MG CPDRIndications:G astroesophageal reflux disease without esophagitis Take 1 Cap by mouth 2 times a day 30 minutes before morning and evening meals. 60 Cap 5 07/17/2018 Active hydrochlorothiazi de (HYDRODIURIL) 25 MG Tablet TAKE ONE TABLET BY MOUTH DAILY 90 Tab 1 07/25/2018 Active hydrochlorothiazi de (HYDRODIURIL) 25 MG Tablet TAKE ONE TABLET BY MOUTH DAILY 90 Tab 1 01/17/2018 07/25/20 18 Discontinued as of this encounter Active [...] of 35.0 to 39.9 with serious comorbidity ([facility]) 01/19/2016 Overview: ICD-10 update of inactive diagnosis COPD, severe ([facility]) 12/21/2015 Dyslipidemia, goal LDL below 100 [...] chronic, stage III (GFR 30-59 ml /min) ([facility]) 10/16/2015 08/09/2017 Allergic rhinitis 09/21/2015 03/30/2016 Dyslipidemia, [...] Telephone Encounter - Leanne Cardoza MD - 07/25/2018 12:05 PM EDT Signed Prescriptions: Disp Refills hydrochlorothiazide (HYDRODIURIL) 25 MG Ta*90 Tab 1 Sig: TAKE ONE TABLET BY MOUTH DAILY Authorizing Provider: LEANNE CARDOZA * Telephone Encounter - Corrina Mazariegos LPN - 07/25/2018 11:05 AM EDT Pending Prescriptions: Disp Refills hydrochlorothiazide (HYDRODIURIL) 25 MG T*90 Tab 1 Sig: TAKE ONE TABLET BY MOUTH DAILY * Telephone Encounter - Corrina Mazariegos LPN - 07/25/2018 11:04 AM EDT Formatting of this note may be different from the original. Pending Prescriptions: Disp Refills hydrochlorothiazide (HYDRODIURIL) 25 MG T*90 Tab 1 Sig: TAKE ONE TABLET BY MOUTH DAILY Last Office Visit: 04/21/2018 Next Office Visit: [...] Team Description 07/28/2018 Office Visit Internal Medicine Leanne Cardoza MD [address] [place] [address] [place] [address] Health Maintenance Due Date Last Done Comments *ADVANCE DIRECTIVE NOT ON FILE 12/23/2015 *DEPRESSION SCREENING, LUI Lao FOR PTS 18 AND OVER 01/03/2018 Influenza Vaccine (FLU shot) (#1) 2018 07/31/2017, 07/21/2016, 07/20/2015, Additional history exists CKD GFR USE SMARTSET 69381 06/24/201812/22, 09/12/2017, 04/17/2017, Additional history exists BREAST CANCER SCREENING DISC USSION YEARLY AGES 40-75 12/09/2018 12/09/2017, 10/08/2016, 10/06/2015, Additional history exists CKD HGB USE SMARTSET 05292 12/22/201812/22, 09/12/2017, 04/17/2017, Additional history exists CKD PHOS USE SMARTSET 69286 12/22/201812/05, 09/12/2017, 03/19/2017, Additional history exists CKD URINE PROTEIN/CREATININE RATION OR URINE MICROALBUMIN YEARLY USE SMARTSET 94051 12/22/2018 12/22/2017, 03/19/2017, 02/09/2017, Additional history exists [...]
--- OUTSIDE RECORDS SUMMARY | 2023-06-07 08:26 | External Medical Summary | Summary of Care ---
Author Name Unknown Organization [place] [address] Phone Care Team Providers Care Chief Design Engineer Name Role Phone Yariel Cardoza MD Primary Care Provide r Encounter Details Date Type Department Care Team Description 07/22/2018 Scan Encounter Unspecified Department <No scans attached> [...] 1 Puff by mouth daily. Active nystatin 904254 UNIT/ML suspension Swish and swallow 500,000 Units [...] omorbidity (see actual BMI) 01/19/2016 COPD, severe ([facility]) 12/21/2015 Dyslipidemia, goal LDL below 100 016 [...] chronic, stage III (GFR 30-59 ml /min) ([facility]) 10/16/2015 08/09/2017 Allergic rhinitis 09/21/2015 03/30/2016 Dyslipidemia, goal LDL below 130 08/22/2015 10/16/2015 Generalized osteoarthritis 08/22/201503/30 COPD, severity to be determined ([facility]) 07/20/2015 12/21/2015 ACQ ESOPHAG DIVERTICULUM 12/22/2004 015 [...] Office Visit Internal Medicine Yariel Cardoza MD [address] [place] [address] [place] [address] Health Maintenance Due Date Last Done Comments *ADVANCE DIRECTIVE NOT ON FILE 12/23/2015 *DEPRESSION SCREENING, LUI Lao FOR PTS 18 AND OVER 01/03/2018 Influenza Vaccine (FLU shot) (#1) 2018 07/31/2017, 07/21/2016, 07/20/2015, Additional history exists CKD GFR USE SMARTSET 52340 06/24/201812/22, 09/12/2017, 04/17/2017, Additional history exists BREAST CANCER SCREENING DISC USSION YEARLY AGES 40-75 12/09/2018 12/09/2017, 10/08/2016, 10/06/2015, Additional history exists CKD HGB USE SMARTSET 99637 12/22/201812/22, 09/12/2017, 04/17/2017, Additional history exists CKD PHOS USE SMARTSET 56215 12/22/201812/05, 09/12/2017, 03/19/2017, Additional history exists CKD URINE PROTEIN/CREATININE RATION OR URINE MICROALBUMIN YEARLY USE SMARTSET 61593 12/22/2018 12/22/2017, 03/19/2017, 02/09/2017, Additional history exists [...]
--- OUTSIDE RECORDS SUMMARY | 2023-06-07 08:26 | External Medical Summary | Summary of Care ---
Author Name Unknown Organization [place] [address] Phone Care Team Providers Care Maritime Officer Name Role Phone Leanne Cardoza MD Primary Care Provide r Reason for Visit * Reason Comments MEDICATION REFILL Encounter Details Date Type Department Care Team Description 07/17/2018 Refill Internal Medicine [address] [address] Leanne Cardoza MD [address] [place] [address] [place] [id number] Gastroesophageal reflux disease without esophagitis Allergies Active [...] 1 Puff by mouth daily. Active nystatin 577013 UNIT/ML suspension Swish and swallow 500,000 Units [...] evening meals. 60 Cap 5 07/17/2018 Active omeprazole (PRILOSEC) 20 MG CPDRIndications:G astroesophageal reflux disease without esophagitis Take 1 Cap by mouth 2 times a day 30 minutes before morning and evening meals. 60 Cap 5 06/13/2018 07/17/20 18 Discontinued as of this encounter Active [...] omorbidity (see actual BMI) 01/19/2016 COPD, severe ([facility]) 12/21/2015 Dyslipidemia, [...] Telephone Encounter - Leanne Cardoza MD - 07/17/2018 3:23 PM EDT Signed Prescriptions: Disp Refills omeprazole (PRILOSEC) 20 MG CPDR 60 Cap 5 Sig: Take 1 Cap by mouth 2 times a day 30 minutes before morning and evening meals. Authorizing Provider: LEANNE CARDOZA * Telephone Encounter - Gracie Martino KRISTIAN - 07/17/2018 2:06 PM EDT Pending Prescriptions: Disp Refills omeprazole (PRILOSEC) 20 MG CPDR 60 Cap 5 Sig: Take 1 Cap by mouth 2 times a day 30 minutes before morning and evening meals. * Telephone Encounter - Michelle West VIRA - 07/17/2018 2:02 PM EDT Formatting of this note may be different from the original. Pending Prescriptions: Disp Refills omeprazole (PRILOSEC) 20 MG CPDR 60 Cap 5 Sig: Take 1 Cap by mouth 2 times a day 30 minutes before morning and evening meals. Last Office Visit: 04/21/2018 Next Office Visit: 07/28/2018 Scheduled Provider(s): Leanne Cardoza MD If no future appointments scheduled, and last appointment is greater than a year ago, please schedule patient for a follow-up appointment Last date the medication was ordered: 06/13/2018 Patient Phone Numbers Labs: Lab Results Component [...] Procedure Only Endoscopy Shakila Rocha, DO [address] [facility] [place] [address] [phone] 07/28/2018 Office Visit Internal Medicine Leanne Cardoza MD [address] [place] [address] [place] [address] Health Maintenance Due Date Last Done Comments *ADVANCE DIRECTIVE NOT ON FILE 12/23/2015 *DEPRESSION SCREENING, LUI Lao FOR PTS 18 AND OVER 01/03/2018 Influenza Vaccine (FLU shot) (#1) 2018 07/31/2017, 07/21/2016, 07/20/2015, Additional history exists CKD GFR USE SMARTSET 48337 06/24/201812/22, 09/12/2017, 04/17/2017, Additional history exists BREAST CANCER SCREENING DISC USSION YEARLY AGES 40-75 12/09/2018 12/09/2017, 10/08/2016, 10/06/2015, Additional history exists CKD HGB USE SMARTSET 58201 12/22/201812/22, 09/12/2017, 04/17/2017, Additional history exists CKD PHOS USE SMARTSET 00946 12/22/201812/05, 09/12/2017, 03/19/2017, Additional history exists CKD URINE PROTEIN/CREATININE RATION OR URINE MICROALBUMIN YEARLY USE SMARTSET 51557 12/22/2018 12/22/2017, 03/19/2017, 02/09/2017, Additional history exists [...]
--- OUTSIDE RECORDS SUMMARY | 2023-06-07 08:26 | External Medical Summary | Summary of Care ---
Author Name Unknown Organization [place] [address] Phone Care Team Providers Care Business Control Manager Name Role Phone Yariel Cardoza MD Primary Care Provide r Reason for Visit * Reason Comments RECHECK MEDICATION ADMINISTRATION Flu and/or Pne umo Inj Encounter Details Date Type Department Care Team Description 07/28/2018 Office Visit Internal Medicine [address] [address] Yariel Cardoza MD [address] [place] [address] [facility] [place] [id number] Acute right-sided low back pain with right-sided sciatica*;Need for prophylactic vaccination and inoculation against influenza;COPD, severe (HCC);Pulmonary hypertension (HCC);Gastroesophageal reflux disease without esophagitis;Severe obesity with body mass index (BMI) of 35.0 to 39.9 with serious comorbidity (HCC);Lumbar degenerative disc disease;HTN, goal below 140/90;Multiple thyroid nodules;Pain of right upper arm Allergies Active Allergy Reactions Severity Noted Date [...] Inhale 1 Puff by mouth daily. Active omeprazole (PRILOSEC) 20 MG CPDRIndications:G astroesophageal reflux disease without esophagitis Take 1 Cap by mouth 2 times a day 30 minutes before morning and evening meals. 60 Cap 5 07/17/2018 Active hydrochlorothiazi de (HYDRODIURIL) 25 MG Tablet TAKE ONE TABLET BY MOUTH DAILY 90 Tab 1 07/25/2018 Active ciprofloxacin-dex amethasone (CIPRO-DEX) 0.3-0.1 % otic suspensionIndicat ions:Other infective chronic otitis externa of right ear Administer 3 Drops to the right ear 2 times a day for 7 days. 1 Bottle 1 07/28/2018 08/04/20 18 Active PredniSONE (DELTASONE) 20 MG TabletIndications :Acute right-sided low back pain with right-sided sciatica,Pain of right upper arm 1 tab 3 times a day for 3 days, then 1 tab 2 times a day for 3 days, then 1 tab daily for 3 days 18 Tab 0 07/28/2018 Active nystatin 782981 UNIT/ML suspension Swish and swallow 500,000 Units 4 times a day. 07/28/20 18 Discontinued montelukast (SINGULAIR) 10 MG TabletIndications :Gastroesophageal reflux disease without esophagitis,COPD, severe (HCC),Acute non-recurrent maxillary sinusitis TAKE 1 TABLET BY MOUTH EVERY DAY 30 Tab 5 07/09/2018 07/28/20 18 Discontinued as of this encounter Active [...] 35.0 to 39.9 with serious comorbidity (HCC) 01/19/2016 Overview: ICD-10 update of inactive diagnosis COPD, severe (HCC) 12/21/2015 Dyslipidemia, goal LDL [...] chronic, stage III (GFR 30-59 ml /min) ([facility]) 10/16/2015 08/09/2017 Allergic rhinitis 09/21/2015 03/30/2016 Kidney stone 08/22/2015 07/28/2018 Dyslipidemia, goal LDL below 130 08/22/2015 10/16/2015 Generalized osteoarthritis 08/22/201503/30 COPD, severity to be determined ([facility]) 07/20/2015 12/21/2015 ACQ ESOPHAG DIVERTICULUM [...] Not on file as of this encounter Last Filed Vital Signs Vital Sign Reading Time Taken Blood Pressure 130/76 07/28/2018 1:50 PM EDT Pulse 60 07/28/2018 1:50 PM EDT Temperature 36.8 C (98.2 F) 07/28/2018 1 :50 PM EDT Respiratory Rate 14 07/28/2018 1:50 PM EDT Oxygen Saturation - - Inhaled Oxygen Concentration - - Weight 96.8 kg (213 lb 8 oz) 07/28/2018 1:50 PM EDT Height - - Body Mass Index 39.69 07/28/2018 1:50 PM EDT in this encounter Instructions * Patient Instructions - Gracie Martino LPN - 07/28/2018 1:50 PM EDT ~~PATIENT INSTRUCTIONS FOR FLU SHOT~~ [...] OF EYES, FACE OR INSIDE OF NOSE. in this encounter Progress Notes * Yariel Cardoza MD - 07/28/2018 2:06 PM EDT Formatting of this note may be different from the original. Subjective: Jayla Hayes is a 72 year old female. who presents for routine follow-up HPI: Brief Clinical History Ms. Hayes is a 72 year old woman last seen in Internal Medicine 3 months ago (04-21-18). She has h/oCOPD and heart failure, due for eval of Severe obesity with body mass index (BMI) of 35.0 to 39.9 with serious comorbidity (HCC). Has been having right lateral hip/buttocks pain radiating down the right leg for about 2 months. Started when sitting on a cloth chair at the [facility] for long periods of time. Hurts when walking.Has been taking Tylenol and Salon pas patches, which help temporarily. Has been having pain in the right upper arm in the biceps area. States she was treated for fibromyalgia in the past, which helped. Having itching and pain in the right ear. No change in hearing. No ear drainage. Had EGD last week. Had Schatzki's ring dilated and mild chronic non-active gastritis. Had colonoscopy in March and had adenomatous polyps removed. To have repeat in [address] No for thyroid nodule. Had it biopsied, which was OK. Is having a repeat ultrasound in 1 year. PMH: Patient Active Problem List Diagnosis Code [...] HTN, goal below 140/90 I10 Current Outpatient Prescriptions Medication Sig Dispense Refill ciprofloxacin-dexamethasone (CIPRO-DEX) 0.3-0.1 % otic suspension Administer 3 Drops to the right ear 2 times a day for 7 days. 1 Bottle 1 PredniSONE (DELTASONE) 20 MG Tablet 1 tab 3 times a day for 3 days, then 1 tab 2 times a day for 3 days, then 1 tab daily for 3 days 18 Tab 0 hydrochlorothiazide (HYDRODIURIL) 25 MG Tablet TAKE ONE [...] D-3 1000 UNITS PO CAPS 1 daily furosemide (LASIX) 20 MG Tablet TAKE 1 TABLET BY MOUTH DAILY NEEDED (SWELLING). FOR FLUID ACCUMULATION OR WEIGHT GAIN 30 Tab 5 Past Medical History: Diagnosis Date Allergic [...] disease, chronic, stage III (GFR 30-59 ml/min) ([facility]) 10/16/2015 Kidney stone Lumbar degenerative disc disease 02/06/2016 Lumbar facet arthropathy ([facility]) 02/06/2016 Lumbar spinal stenosis 02/18/2017 Mixed incontinence urge and stress (male)(female) 07/20/2015 Multiple thyroid nodules 09/09/2016 Obesity, Class II, BMI 35.0-39.9, with comorbidity (see actual BMI) 01/19/2016 Primary osteoarthritis of right knee 02/18/2017 Pulmonary hypertension ([facility]) 05/07/2017 Reflux esophagitis 01/28/2002 Slow [...] DIAGNOSTIC (RECTUM) 03/08/2015 adenomatous polyps, repeat 3 yrs/[facility] COLONOSCOPY, DIAGNOSTIC (RECTUM) 03/26/2018 adenomatous & serrated adenomatous polyps, repeat 3 yrs/[facility] EGD, FLEXIBLE, DIAGNOSTIC 01/21/2015 [facility] ESOPHAGOSCOPY RIGID TRANSORAL HYPOPHARYNX [...] Relation Age of Onset Heart Disorder Father [place] age 55 Heart Disorder Mother CAD, 84 in '02 Arthritis Mother in fingers Diabetes Brother half brother Stroke Aunt (Unspecified) 80's Stroke Uncle (Unspecified) 60's Family Status Relation Status Father at age 55 [place], smoked Mother at age 96 unknown cause Daughter Alive Irina Son Alive Son Alive Brother Aunt (Unspecified) Uncle (Unspecified) Social History Substance Use Topics Smoking status: Former Smoker Packs/day: 1.75 Years: 38.00 Types: Cigarettes Quit date: 10/07/1995 Smokeless tobacco: Never Used Comment: quit in 1995 Alcohol use No Basic Panel Results: BASIC METAB PANEL, BMP Grisel Dt/Tm Resulted Value Status CREATININE-OUTSIDE LAB (no units) 02/10/17 02/26/17 1.00 FINAL GFR ESTIMATED-OUTSIDE LAB (no units) 02/10/17 02/26/17 55.8 FINAL POTASSIUM-OUTSIDE LAB (no units) 02/10/17 02/26/17 3.8 FINAL GLUCOSE-OUTSIDE LAB (no units) 02/10/17 02/26/17 90 FINAL Lipid Panel Results: LIPID PANEL Grisel Dt/Tm Resulted Value Status HOURS FASTING (hours) 03/19/17 8:05A 03/19/17 12 F TRIGLYCERIDES (mg/dL) 03/19/17 8:05A 03/19/17 102 F CHOLESTEROL (mg/dL) 03/19/17 8:05A 03/19/17 117 F HDL (mg/dL) 03/19/17 8:05A 03/19/17 47 F CHOL/HDL RATIO ( ) 03/19/17 8:05A 03/19/17 2.5 F LDL (CALCULATED) (mg/dL) 03/19/17 8:05A 03/19/17 50 F ALT Results: ALT(U/L) Grisel Dt/Tm Resulted Value Status 09/12/17 10:17A 09/12/17 16 FINAL 04/17/17 10:53A 04/17/17 21 FINAL 03/19/17 8:05A 03/19/17 21 FINAL CBC Results: CBC/DIFF Grisel Dt/Tm Resulted Value Status WBC (K/uL) 09/12/17 10:09/12/17 6.96 F RBC (M/uL) 09/12/17 10:09/12/17 4.86 F HGB (g/dL) 09/12/17 10:09/12/17 14.4 F HCT (%) 09/12/17 10:09/12/17 47.1* F MCV (fL) 09/12/17 10:09/12/17 96.9 F MCH (pg) 09/12/17 10:09/12/17 29.6 F MCHC (g/dL) 09/12/17 10:09/12/17 30.6* F RDW (%) 09/12/17 10:09/12/17 14.0 F PLATELET COUNT (K/uL) 09/12/17 10:09/12/17 188 F MPV (fL) 09/12/17 10:09/12/17 9.7 F NEUTS (%) 09/12/17 10:09/12/17 68.4 F LYMPHS (%) 09/12/17 10:09/12/17 18.2 F MONOS (%) 09/12/17 10:09/12/17 11.1* F EOS (%) 09/12/17 10:09/12/17 1.9 F BASOS (%) 09/12/17 10:09/12/17 0.4 F ABS. NEUTS (K/uL) 09/12/17 10:09/12/17 4.76 F ABS. LYMPHS (K/uL) 09/12/17 10:17A [...] Respiratory: No cough, sputum, or hemoptysis, No wheezing and No recent change in breathing Cardiac: No chest pain, No shortness of breath, No orthopnea, No paroxysmal nocturnal dyspnea, No palpitations, No syncope and + edema of ankles chronically Gastrointestinal: No significant heartburn, No significant change in appetite, No nausea, vomiting,diarrhea, or constipation, No blood in stools or black tarry stools and No abdominal pain Urinary: No urinary frequency, No dysuria and No hematuria Musculoskeletal: as per HPI Objective: BP 130/76 | Pulse 60 | Temp (Src) 98.2 (Tympanic) | Resp 14 | Wt 213 lbs 8 oz (96.843kg) | BMI 39.69 kg/m | BSA 2.05 m Physical Exam: General: alert, healthy, no distress, well nourished and well developed, obese Head: Normocephalic, No masses, lesions, tenderness or abnormalities Eye Exam: PERRLA, EOMI, Conjunctiva are pink and non-injected, sclera clear Ears: External ears normal, R TM normal and right canal with mild erythema and swelling. Tender to palpation of right pinna, L TM normal Oropharynx: no exudate, no erythema, lips, buccal mucosa, and tongue normal and mucous membranes are moist Neck: supple, no adenopathy, no bruits Heart: regular rate & rhythm, no murmurs and no gallops Lungs: chest symmetric with normal AP diameter, no chest deformities noted, no chest wall tenderness, lungs clear to auscultation Back: +tenderness to palpation over right SI joint area and right lateral thigh Extremities: no clubbing, no cyanosis, 1+ankle edema bilaterally Neuro Exam: alert & oriented x 3 with fluent speech, no focal motor/sensory deficits, gait normal ASSESSMENT/PLAN: M54.41 Acute right-sided low back pain with right-sided sciatica (primary encounter diagnosis)--start prednisone taper for back pain and right arm pain. Call or return if not improving. Plan: Prednisone 20 mg po tabs Si tab 3 times a day for 3 days, then 1 tab 2 times a day for 3 days, then 1 tab daily for 3 days Z23 Need for prophylactic vaccination and inoculation against influenza Plan: Influenza vacc, quad, pf, 6 months & up, 0.5 ml, im J44.9 Copd, severe (hcc)--controlled. No recent breathing issues. No longer needing continuous oxygen. I27.20 Pulmonary hypertension (hcc)--stable. breathing has been good. K21.9 Gastroesophageal reflux disease without esophagitis--controlled E66.01 Severe obesity with body mass index (bmi) of 35.0 to 39.9 with serious comorbidity (hcc)--patient counseling on weight management given. M51.36 Lumbar degenerative disc disease--stable I10 Htn, goal below 140/90--controlled. Continue current medications. Plan: Basic metab panel, bmp E04.2 Multiple thyroid nodules--following with ENT. Had benign biopsy. M79.621 Pain of right upper arm--as above Plan: Prednisone 20 mg po tabs Si tab 3 times a day for 3 days, then 1 tab 2 times a day for 3 days, then 1 tab daily for 3 days H60.391 Other infective chronic otitis externa of right ear Plan: Ciprofloxacin-dexamethasone 0.3-0.1 % ot susp Sig:Administer 3 drops to the right ear 2 times a dayfor 7 days. E78.5 Dyslipidemia, goal ldl below 100--controlled Plan: Lipid panel with direct ldl if tg above 400 mg/dl Alt Follow up: Return in about 6 months (around 01/26/2019). Yariel Cardoza MD * Gracie Martino LPN - 07/28/2018 1:50 PM EDT PRE - ADMINISTRATION DOCUMENTATION Are you allergic to latex? No Are you experiencing any cold symptoms or fever? No Have you had Guillain-Irvine Syndrome (an illness that causes paralysis)? No Have you had the flu shot in the past? YES Have you ever had a reaction to the flu shot? No Gracie Martino LPN, 07/28/2018 1:50 PM Immunization Administration Documentation Time Out Procedure Performed: Yes Patient Identified (Ask Name/Date of ): Yes Does the patient have a fever greater than 101 degrees today? No Patient allergic to latex? No VFC Stock: No Immunization(s) verified: Yes, Immunization Name: Flu, VIS Sheet(s) given: Yes Verified Side and Site: Yes Verified Shot(s) with Parent(s)/Patient: Yes in this encounter Nursing Notes * Gracie Martino LPN - 07/28/2018 1:48 PM EDT Recheck. R hip pain for several months. R arm pain. Diagnosed with fibromyalgia in past. in this encounter Plan of Treatment Pending Results Name Priority Associated Diagnoses Date/Ti me BASIC METAB PANEL, BMP Routine HTN, goal below 140/90 07/28/2018 2:30 PM EDT LIPID PANEL WITH DIRECT LDL IF TG ABOVE 400 MG/DL Routine Dyslipidemia, goal LDL below 100 07/28/2018 2:30 PM EDT ALT Routine Dyslipidemia, goal LDL below 100 07/28/2018 2:30 PM EDT Scheduled Tests Name Priority Associated Diagnoses Order S chedule BASIC METAB PANEL, BMP Routine HTN, goal below 140/90 Expected: 07/28/2018 (Approximate), Expires: 07/28/2019 LIPID PANEL WITH DIRECT LDL IF TG ABOVE 400 MG/DL Routine Dyslipidemia, goal LDL below 100 Expected: 07/28/2018 (Approximate), Expires: 07/28/2019 ALT Routine Dyslipidemia, goal LDL below 100 Expected: 07/28/2018 (Approximate), Expires: 07/28/2019 Health Maintenance Due Date Last Done Comments *ADVANCE DIRECTIVE NOT ON FILE 12/23/2015 *DEPRESSION SCREENING, LUI Lao FOR PTS 18 AND OVER 01/03/2018 Influenza Vaccine (FLU shot) (#1) 2018 07/31/2017, 07/21/2016, 07/20/2015, Additional history exists BREAST CANCER SCREENING DISC USSION YEARLY AGES 40-75 12/09/2018 12/09/2017, 10/08/2016, 10/06/2015, Additional history exists DIABETES SCREEN EVERY 3 YRS- AGE 45 AND ABOVE 12/22/2020 12/22/2017, 09/12/2017, 04/17/2017, Additional history exists COLONOSCOPY-EVERY 3 YRS AGES 18-100 03/26/2021 03/26/2018, 03/08/2015 LIPID SCREEN EVERY 5 YRS-WOM EN AGE 45-75 03/19/2022 03/19/2017, 09/27/2016, 02/18/2016, Additional history exists DXA-SCREENING EVERY 7 YRS-US E SMARTSET# 3348 TO ORDER 08/17/2022 08/17/2015 DTaP,Tdap,and Td Vaccines (2 - Td) 04/19/20282017, 05/03/2004 PNEUMOCOCCAL ADULT 65 YRS AND OVER Completed 2016, 09/21/2015 as of this encounter Implants Not on fileas of this encounter Visit Diagnoses Diagnosis Acute right-sided low back p ain with right-sided sciatica - Primary Need for prophylactic vaccin ation and inoculation against influenza COPD, severe (HCC) Chronic airway obstruction, not elsewhere classified Pulmonary hypertension (HCC) Other chronic pulmonary heart diseases Gastroesophageal reflux dise ase without esophagitis Esophageal reflux Severe obesity with body mas s index (BMI) of 35.0 to 39.9 with serious comorbidity (HCC) Lumbar degenerative disc dis ease Degeneration of lumbar or lumbosacral intervertebral disc HTN, goal below 140/90 Unspecified essential hypertension Multiple thyroid nodules Nontoxic multinodular goiter Pain of right upper arm Pain in limb Other infective chronic otit is externa of right ear Dyslipidemia, goal LDL below 100 Other and unspecified hyperlipidemia in this encounter"
--- OUTSIDE RECORDS SUMMARY | 2023-06-07 08:26 | External Medical Summary | Summary of Care ---
Author Name Unknown Organization [place] [address] Phone Care Team Providers Care C Application Developer Name Role Phone Yariel Cardoza MD Primary Care Provide r Reason for Visit * Reason Comments APPOINTMENT EGD - [facility]/Followup with Vilma Encounter Details Date Type Department Care Team Description 05/09/2018 Telephone Gastroenterology, [facility] [address] [facility] [place] [address] Vilma Austin CRNP [address] [facility] [place] [address] [phone] APPOINTMENT (EGD - [facility]/Followup with Patrick... Allergies Active Allergy Reactions Severity Noted Date [...] 0 09/10/2017 Active furosemide (LASIX) 20 MG TabletIndications:B ilateral [...] mouth daily. 30 Tab 5 02/21/2018 Active atenolol (TENORMIN) 25 MG Tablet Take 1 Tab by mouth daily. 90 Tab 1 02/24/2018 Active KLOR-CON 10 10 MEQ TBCR TAKE ONE TABLET BY MOUTH DAILY 30 Tab 5 03/07/2018 Active albuterol-ipratropi um (DUONEB) 2.5-0.5 MG/3ML nebulizer solutionIndications :COPD, severe (HCC) INHALE 3 MLS VIA NEBULIZER EVERY 4 HOURS NEEDED FOR COUGH, SHORTNESS OF BREATH OR WHEEZING. 360 mL 1 03/17/2018 Active as of this encounter Active Problems [...] omorbidity (see actual BMI) 01/19/2016 COPD, severe ([facility]) 12/21/2015 Dyslipidemia, goal LDL below [...] osteoarthritis 08/22/201503/30 COPD, severity to be determined ([facility]) 07/20/2015 12/21/2015 ACQ ESOPHAG DIVERTICULUM [...] Telephone Encounter - Zulema Land OSA - 05/12/2018 3:47 PM EDT Pt was given date of 07/22/18 @ 10:00 am * Telephone Encounter - Zulema Land OSA - 05/09/2018 12:53 PM EDT I spoke to schedulers at GI Dept, and they said [facility] will contact patient to set up date and time of test. Pt will call in after she gets date of test because she needs to be seen three weeks after test. in this encounter Plan of Treatment Upcoming Encounters Date Type Specialty Care Team Description 06/04/2018 Office Visit Dermatology Jennifer Sebastian PA-C [address] [place] [address] 07/22/2018 Procedure Only Endoscopy Shakila Rocha, DO [address] [place] [address] [phone] 07/28/2018 Office Visit Internal Medicine Yariel Cardoza MD [address] [place] [address] [place] [address] [phone] Health Maintenance Due Date Last Done Comments *ADVANCE DIRECTIVE NOT ON FILE 12/23/2015 *DEPRESSION SCREENING, LUI Lao FOR PTS 18 AND OVER 01/03/2018 CKD LDL USE SMARTSET 0[address] ( STAGE 3) [place] [address] (STAGE 4) 03/19/2018 03/19/2017, 09/27/2016, 02/18/2016, Additional history exists *LDL AFTER STARTING A STATIN 04/19/2018 Influenza Vaccine (FLU shot) (#1) 2018 07/31/2017, 07/21/2016, 07/20/2015, Additional history exists CKD GFR USE SMARTSET 77039 06/24/201812/22, 09/12/2017, 04/17/2017, Additional history exists BREAST CANCER SCREENING DISC USSION YEARLY AGES 40-75 12/09/2018 12/09/2017, 10/08/2016, 10/06/2015, Additional history exists CKD HGB USE SMARTSET 69220 12/22/201812/22, 09/12/2017, 04/17/2017, Additional history exists CKD PHOS USE SMARTSET 55944 12/22/201812/05, 09/12/2017, 03/19/2017, Additional history exists CKD URINE PROTEIN/CREATININE RATION OR URINE MICROALBUMIN YEARLY USE SMARTSET 34565 12/22/2018 12/22/2017, 03/19/2017, 02/09/2017, Additional history exists [...]
--- OUTSIDE RECORDS SUMMARY | 2023-06-07 08:26 | External Medical Summary | Summary of Care ---
Author Name Unknown Organization [place] [address] Phone Care Team Providers Care Security Officer Name Role Phone Yariel Cardoza MD Primary Care Provide r Reason for Visit * Reason Comments case management Encounter Details Date Type Department Care Team Description 06/12/2018 Telephone Internal Medicine [address] [address] Donna Phillips RN [address] [place] [id number] case management Allergies Active Allergy Reactions [...] 1 Puff by mouth daily. Active nystatin 451921 UNIT/ML suspension Swish and swallow 500,000 Units 4 times a day. Active as of this encounter Active Problems [...] osteoarthritis 08/22/201503/30 COPD, severity to be determined ([facility]) 07/20/2015 12/21/2015 ACQ ESOPHAG DIVERTICULUM [...] Telephone Encounter - Donna Phillips RN - 06/12/2018 9:06 AM EDT COPD, home O2, pulmonary hypertension, HTN, GERD, lumbar DDD, obesity Call to pt Trigger on IVR, increased SOB Per pt, she needs to use her O2 more on hot humid days-lately weather has been hot/humid. Says she saw Dr Soriano yesterday He started her on Anora inhaler 1x/day, still using nebulizer. Has thrush and Dr Soriano ordered Nystatin swish and swallow Denies chest pain Denies increased SOB, but is SOB with exertion, has O2 to use HS and PRN during day-hot humid days needs O2 more during day. Had had days that she has not had to use O2. No increased cough or coloredsputum Denies increased edema No N/V or decreased intake COPD: Pt instructed to: -Call with increased SOB, wheezing, chest tightness, increased cough, increased sputum with change in color or consistency and fever. -Wash hands often -Drink plenty of fluids -Use inhalers as directed, do not stop or skip doses -Avoid stress -Rest when tired or SOB -Avoid triggers -Clean inhalers once a week Discussed mouth care-use of swish and swallow, dispose of denture cup/tooth brushes about 5 days into Tx and to finish bottle of Nystatin. If reoccurs call Call as scheduled in 3 months Donna Phillips RN, [facility] Child Development Instructor @ [facility] [facility] [phone] in this encounter Plan of Treatment Upcoming Encounters Date Type Specialty Care Team Description 07/22/2018 Procedure Only Endoscopy Shakila Rocha, DO [address] [facility] [place] [address] 07/28/2018 Office Visit Internal Medicine Yariel Cardoza MD [address] [place] [address] [place] [address] [phone] Health Maintenance Due Date Last Done Comments Zoster Vaccines HMT (1 of 2) 1993 *ADVANCE DIRECTIVE NOT ON FILE 12/23/2015 *DEPRESSION SCREENING, LUI Lao FOR PTS 18 AND OVER 01/03/2018 *LDL AFTER STARTING A STATIN 04/19/2018 Influenza Vaccine (FLU shot) (#1) 2018 07/31/2017, 07/21/2016, 07/20/2015, Additional history exists CKD GFR USE SMARTSET 65059 06/24/201812/22, 09/12/2017, 04/17/2017, Additional history exists BREAST CANCER SCREENING DISC USSION YEARLY AGES 40-75 12/09/2018 12/09/2017, 10/08/2016, 10/06/2015, Additional history exists CKD HGB USE SMARTSET 43041 12/22/201812/22, 09/12/2017, 04/17/2017, Additional history exists CKD PHOS USE SMARTSET 82327 12/22/201812/05, 09/12/2017, 03/19/2017, Additional history exists CKD URINE PROTEIN/CREATININE RATION OR URINE MICROALBUMIN YEARLY USE SMARTSET 47719 12/22/2018 12/22/2017, 03/19/2017, 02/09/2017, Additional history exists [...]
--- OUTSIDE RECORDS SUMMARY | 2023-06-07 08:27 | External Medical Summary | Summary of Care ---
Author Name Unknown Organization [place] [address] Phone Care Team Providers Care Vocational Evaluator Name Role Phone Yariel Cardoza MD Primary Care Provide r Reason for Visit * Reason Comments APPOINTMENT ? EGD Encounter Details Date Type Department Care Team Description 04/14/2018 Telephone Gastroenterology, [facility] [address] [place] [address] Shakila Rocha DO [address] [place] [address] [phone] APPOINTMENT (? EGD) Allergies Active Allergy Reactions Severity Noted Date [...] degenerative disc disease 016 Lumbar facet arthropathy ([facility]) 6 Obesity, Class II, BMI 35.0-39.9, with c omorbidity (see actual BMI) 01/19/2016 COPD, severe ([facility]) 12/21/2015 Dyslipidemia, goal LDL below [...] 08/22/201503/30 COPD, severity to be determined ([facility]) 07/20/2015 12/21/2015 ACQ ESOPHAG DIVERTICULUM [...] encounter Miscellaneous Notes * Telephone Encounter - Laura Hoang RN - 04/14/2018 2:30 PM EDT Schedulers--please assist with appointment. * Telephone Encounter - Shakila Rocha DO - 04/14/2018 2:12 PM EDT I would suggest we have her see one of the woodworking shop laborer in the office to get a better history. * Telephone Encounter - Frank Vizcarra OSA - 04/14/2018 10:00 AM EDT Pt called stating she spoke with you at the time of her colonoscopy on 03/26 regarding an issue she is having with certain foods "backing up" when she eats. Happening mostly with ice cream but has occurred more recently with other foods including toast. She states you recommended an EGD. No note in chart, can you please clarify which test you recommend for pt and place order? Thank you. in this encounter Plan of Treatment Upcoming Encounters Date Type Specialty Care Team Description 05/09/2018 Office Visit Gastroenterology Vilma Austin CRNP [address] [place] [address] 06/04/2018 Office Visit Dermatology Jennifer Sebastian PA-C [address] [place] [place] [address] [phone] 07/28/2018 Office Visit Internal Medicine Yariel Cardoza MD [address] [place] [address] [place] [address] Health Maintenance Due Date Last Done Comments DTaP,Tdap,and Td Vaccines (1 - Tdap) 05/04/2004 05/03/2004 *ADVANCE DIRECTIVE NOT ON FILE 12/23/2015 *DEPRESSION SCREENING, LUI Lao FOR PTS 18 AND OVER 01/03/2018 CKD LDL USE SMARTSET 83597 ( STAGE 3) [place] 00123 (STAGE 4) 03/19/2018 03/19/2017, 09/27/2016, 02/18/2016, Additional history exists Influenza Vaccine (FLU shot) (#1) 2018 07/31/2017, 07/21/2016, 07/20/2015, Additional history exists CKD GFR USE SMARTSET 48494 06/24/201812/22, 09/12/2017, 04/17/2017, Additional history exists BREAST CANCER SCREENING DISC USSION YEARLY AGES 40-75 12/09/2018 12/09/2017, 10/08/2016, 10/06/2015, Additional history exists CKD HGB USE SMARTSET 12454 12/22/201812/22, 09/12/2017, 04/17/2017, Additional history exists CKD PHOS USE SMARTSET 38971 12/22/201812/05, 09/12/2017, 03/19/2017, Additional history exists CKD URINE PROTEIN/CREATININE RATION OR URINE MICROALBUMIN YEARLY USE SMARTSET 17661 12/22/2018 12/22/2017, 03/19/2017, 02/09/2017, Additional history exists DIABETES SCREEN EVERY 3 YRS- AGE 45 AND ABOVE 12/22/2020 12/22/2017, 09/12/2017, 04/17/2017, Additional history exists COLONOSCOPY-EVERY 3 YRS AGES 18-100 03/26/2021 03/26/2018, 03/08/2015 DXA-SCREENING EVERY 7 YRS-US E SMARTSET# 3348 TO ORDER 08/17/2022 08/17/2015 PNEUMOCOCCAL ADULT 65 YRS AND OVER Completed 2016, 09/21/2015 as of this encounter Implants Not on fileas of this encounter
--- OUTSIDE RECORDS SUMMARY | 2023-06-07 08:27 | External Medical Summary | Summary of Care ---
Author Name Unknown Organization [place] [address] Phone Care Team Providers Care Senior Marketing Associate Name Role Phone Yariel Cardoza MD Primary Care Provide r Encounter Details Date Type Department Care Team Description 03/26/2018 Result Scan Gastroenterology, [facility] [address] [place] [address] Shakila Rocha DO [address] [place] [address] [phone] <No scans attached> Allergies Active Allergy Reactions [...] omorbidity (see actual BMI) 01/19/2016 COPD, severe ([facility]) 12/21/2015 Dyslipidemia, goal LDL below 100 [...] osteoarthritis 08/22/201503/30 COPD, severity to be determined ([facility]) 07/20/2015 12/21/2015 ACQ ESOPHAG DIVERTICULUM 12/22/2004 [...] Office Visit Gastroenterology Vilma Austin CRNP 132 [facility] [place] [address] [phone] 06/04/2018 Office Visit Dermatology Jennifer Sebastian PA-C [address] [place] [address] 07/28/2018 Office Visit Internal Medicine Yariel Cardoza MD [address] [place] [address] [place] [address] Health Maintenance Due Date Last Done Comments DTaP,Tdap,and Td Vaccines (1 - Tdap) 05/04/2004 05/03/2004 *ADVANCE DIRECTIVE NOT ON FILE 12/23/2015 *DEPRESSION SCREENING, LUI Lao FOR PTS 18 AND OVER 01/03/2018 CKD LDL USE SMARTSET 33667 ( STAGE 3) OR 02050 (STAGE 4) 03/19/2018 03/19/2017, 09/27/2016, 02/18/2016, Additional history exists CKD GFR USE SMARTSET 65229 06/24/201812/22, 09/12/2017, 04/17/2017, Additional history exists BREAST CANCER SCREENING DISC USSION YEARLY AGES 40-75 12/09/2018 12/09/2017, 10/08/2016, 10/06/2015, Additional history exists CKD HGB USE SMARTSET 07153 12/22/201812/22, 09/12/2017, 04/17/2017, Additional history exists CKD PHOS USE SMARTSET 30609 12/22/201812/05, 09/12/2017, 03/19/2017, Additional history exists CKD URINE PROTEIN/CREATININE RATION OR URINE MICROALBUMIN YEARLY USE SMARTSET 37534 12/22/2018 12/22/2017, 03/19/2017, 02/09/2017, Additional history exists DIABETES SCREEN EVERY 3 YRS- AGE 45 AND ABOVE 12/22/2020 12/22/2017, 09/12/2017, 04/17/2017, Additional history exists COLONOSCOPY-EVERY 3 YRS AGES 18-100 03/26/2021 03/26/2018, 03/08/2015 DXA-SCREENING EVERY 7 YRS-US E SMARTSET# 3348 TO ORDER 08/17/2022 08/17/2015 PNEUMOCOCCAL ADULT 65 YRS AND OVER Completed 2016, 09/21/2015 Influenza Vaccine (FLU shot) Completed , 07/21/2016, 07/20/2015, Additional history exists as of this encounter Implants Not on fileas of this encounter Results * PATHOLOGY SCANNED RESULT (03/26/2018) in this encounter
--- OUTSIDE RECORDS SUMMARY | 2023-06-07 08:27 | External Medical Summary | Summary of Care ---
Author Name Unknown Organization [place] [address] Phone Care Team Providers Care Supervisor/Port Director Name Role Phone Yariel Cardoza MD Primary Care Provide r Reason for Visit * Reason Comments APPOINTMENT ? EGD Encounter Details Date Type Department Care Team Description 04/14/2018 Telephone Gastroenterology, [facility] [address] [facility] [place] [place] [address] Shakila Rocha DO [address] [place] [address] [phone] APPOINTMENT (? EGD) Allergies Active Allergy Reactions [...] degenerative disc disease 016 Lumbar facet arthropathy ([facility]) 6 Obesity, Class II, BMI 35.0-39.9, with c omorbidity (see actual BMI) 01/19/2016 COPD, severe ([facility]) 12/21/2015 Dyslipidemia, goal LDL below 100 [...] 08/22/201503/30 COPD, severity to be determined ([facility]) 07/20/2015 12/21/2015 ACQ ESOPHAG DIVERTICULUM 12/22/2004 [...] encounter Miscellaneous Notes * Telephone Encounter - Vika Dorantes, VIRA - 04/14/2018 4:08 PM EDT Patient scheduled with Vilma on 05/09/18 * Telephone Encounter - Laura Hoang RN - 04/14/2018 2:30 PM EDT Schedulers--please assist with appointment. * Telephone Encounter - Shakila Rocha DO - 04/14/2018 2:12 PM EDT I would suggest we have her see one of the weapons designer in the office to get a better [...] Office Visit Gastroenterology Vilma Austin CRNP 132 [facility] [place] [address] [phone] 06/04/2018 Office Visit Dermatology Jennifer Sebastian PA-C 16 [facility] [place] [address] 07/28/2018 Office Visit Internal Medicine Yariel Cardoza MD [address] [place] [address] [place] [address] [phone] Health Maintenance Due Date Last Done Comments DTaP,Tdap,and Td Vaccines (1 - Tdap) 05/04/2004 05/03/2004 *ADVANCE DIRECTIVE NOT ON FILE 12/23/2015 *DEPRESSION SCREENING, ANNUA Tashia FOR PTS 18 AND OVER 01/03/2018 CKD [place] SM[place]SET 00930 ( STAGE 3) [place] [address] (STAGE 4) 03/19/2018 03/19/2017, 09/27/2016, 02/18/2016, Additional history exists Influenza Vaccine (FLU shot) (#1) 2018 07/31/2017, 07/21/2016, 07/20/2015, Additional history exists CKD GFR USE SMARTSET 02827 06/24/201812/22, 09/12/2017, 04/17/2017, Additional history exists BREAST CANCER SCREENING DISC USSION YEARLY AGES 40-75 12/09/2018 12/09/2017, 10/08/2016, 10/06/2015, Additional history exists CKD HGB USE SMARTSET 20520 12/22/201812/22, 09/12/2017, 04/17/2017, Additional history exists CKD PHOS USE SMARTSET 08644 12/22/201812/05, 09/12/2017, 03/19/2017, Additional history exists CKD URINE PROTEIN/CREATININE RATION OR URINE MICROALBUMIN YEARLY USE SMARTSET 11469 12/22/2018 12/22/2017, 03/19/2017, 02/09/2017, Additional history exists [...]
--- OUTSIDE RECORDS SUMMARY | 2023-06-07 08:27 | External Medical Summary | Summary of Care ---
Author Name Unknown Organization [place] [address] Phone Care Team Providers Care Business Intelligence Director Name Role Phone Yariel Cardoza MD Primary Care Provide r Reason for Visit * Reason Comments PUNCTURE WOUND INJURY Encounter Details Date Type Department Care Team Description 04/19/2018 Office Visit [place] [facility] 132 [facility] [place] [address] [address] [place] [id number] Puncture wound*;Need for rezjgyfkvp-txqkscj-xuq tussis (Tdap) vaccine;Cellulitis of right elbow Allergies Active Allergy Reactions Severity Noted Date [...] OR WHEEZING. 360 mL 1 03/17/2018 Active cephalexin (KEFLEX) 500 MG CapsuleIndications: Puncture wound Take 1 Cap by mouth 3 times a day for 7 days. 21 Cap 0 04/19/2018 04/26/2018 Active ciprofloxacin (CIPRO) 250 MG TabletIndications:P uncture wound Take 1 Tab by mouth every 12 hours for 7 days. 14 Tab 0 04/19/2018 04/26/2018 Active as of this encounter Active Problems [...] actual BMI) 01/19/2016 COPD, severe ([facility]) 12/21/2015 Dyslipidemia, goal LDL below [...] ([facility]) 07/20/2015 12/21/2015 ACQ ESOPHAG DIVERTICULUM [...] Vital Sign Reading Time Taken Blood Pressure 118/62 04/19/2018 10:04 AM EDT Pulse 60 04/19/2018 10:04 AM EDT Temperature 36.8 C (98.3 F) 04/19/2018 1 0:04 AM EDT Respiratory Rate 16 04/19/2018 10:0 4 AM EDT Oxygen Saturation - - Inhaled Oxygen Concentration - - Weight 96.6 kg (213 lb) 04/19/2018 10:0 4 AM EDT Height - - Body Mass Index 39.59 04/19/2018 10:04 AM EDT in this encounter Progress Notes * Kellen Mora, - 04/19/2018 10:07 AM EDT Formatting of this note may be different from the original. Subjective: Jayla Hayes is a 72 year old female. Chief Complaint Patient presents with PUNCTURE WOUND INJURY HPI: Jayla Hayes presents today for evaluation of puncture wound to the right elbow with a campingfork. She went to unplug a refrigerator in her barn and when she tugged her arm came up and onto the tip of a fork used to roast hotdogs over a campfire. There was no significant bleeding at the time. She is able to move the elbow freely and denies fevers, chills, but notes that she has pain and swe lling in the area surrounding the puncture site. She is due for her tetanus shot and is requesting to have this updated today. PMH: Patient Active Problem List Diagnosis Code [...] Current Outpatient Prescriptions Medication Sig Dispense Refill albuterol-ipratropium (DUONEB) 2.5-0.5 MG/3ML nebulizer solution INHALE 3 MLS VIA NEBULIZER EVERY 4 HOURS NEEDED FOR COUGH, SHORTNESS OF BREATH OR WHEEZING. 360 mL 1 KLOR-CON 10 10 MEQ TBCR TAKE ONE TABLET BY MOUTH DAILY 30 Tab 5 atenolol (TENORMIN) 25 MG Tablet Take 1 Tab by mouth daily. 90 Tab 1 montelukast (SINGULAIR) 10 MG Tablet Take 1 Tab by mouth daily. 30 Tab 5 omeprazole (PRILOSEC) 20 MG CPDR Take 1 Cap by mouth daily. 1 hour before the first meal of theday 30 Cap 5 VENTOLIN HFA 108 (90 Base) MCG/ACT inhaler INHALE 2 PUFFS BY MOUTH EVERY 4 HOURS NEEDED FOR WHEEZING. 1 Inhaler 5 atorvaSTATin (LIPITOR) 20 MG Tablet TAKE 1 TABLET BY MOUTH DAILY. 90 Tab 1 hydrochlorothiazide (HYDRODIURIL) 25 MG Tablet TAKE ONE TABLET BY MOUTH DAILY 90 Tab 1 Aspirin 81 MG Tablet Take 81 mg by mouth daily. furosemide (LASIX) 20 MG Tablet TAKE 1 TABLET BY MOUTH DAILY NEEDED (SWELLING). FOR FLUID ACCUMULATION OR WEIGHT GAIN 30 Tab 5 meclizine (ANTIVERT) 25 MG Tablet TAKE 1 TAB EVERY 6HRS NEEDED FOR DIZZINESS/VERTIGO 10 Tab 0 budesonide (PULMICORT) 0.5 MG/2ML nebulizer solution [...] Contact rash Motrin [Ibuprofen] Rash Objective: BP 118/62 | Pulse 60 | Temp (Src) 98.3 (Tympanic) | Resp 16 | Wt 213 lbs (96.616kg) | BMI 39.59 kg/m | BSA 2.05 m General: alert, healthy, no distress, well nourished and well developed, afebrile Lungs; normal resp effort, on oxygen via NC Extremities: on the right outer elbow is an ~ 4 cm raised area which is warm and tender to the touch. In the center of this is the puncture site. She is able to move the elbow without difficulty ASSESSMENT/PLAN: T14.8XXA Puncture wound (primary encounter diagnosis) - tetanus shot updated. Will treat with antibiotics as below. Tylenol as needed for pain. Recheck in 2 days - call sooner if seems to be getting worse despite the antibiotics. Plan: Tdap (age 10 and older)(boostrix) Cephalexin 500 mg po caps Sig:Take 1 cap by mouth 3 times a day for 7 days. Ciprofloxacin hcl 250 mg po tabs Sig:Take 1 tab by mouth every 12 hours for 7 days. Z23 Need for hegeknpkat-aunouct-xlsblajtm (tdap) vaccine Plan: Tdap (age 10 and older)(boostrix) L03.113 Cellulitis of right elbow Follow up: Return in about 2 days (around 04/21/2018). Kellen Mora DO in this encounter Nursing Notes * Maria Antonia Whiteside LPN - 04/19/2018 10:02 AM EDT Puncture wound right arm with camping fork yesterday, is painful Immunization Administration Documentation Time Out Procedure Performed: Yes Patient Identified (Ask Name/Date of ): Yes Does the patient have a fever greater than 101 degrees today? No Patient allergic to latex? Yes VFC Stock: No Immunization(s) verified: Yes, Immunization Name: Tdap (Boostrix), VIS Sheet(s) given: Yes Verified Side and Site: Yes Verified Shot(s) with Parent(s)/Patient: Yes in this encounter Plan of Treatment Upcoming Encounters Date Type Specialty Care Team Description 04/21/2018 Office Visit Internal Medicine Hillary White PA-C [address] [place] [address] [place] [address] [phone] 05/09/2018 Office Visit Gastroenterology Vilma Austin CRNP [address] [facility] [place] [address] [phone] 06/04/2018 Office Visit Dermatology Jennfier Sebastian PA-C [address] [place] [address] [phone] 07/28/2018 Office Visit Internal Medicine Yariel Cardoza MD [address] [place] [address] [place] [address] [phone] Health Maintenance Due Date Last Done Comments DTaP,Tdap,and Td Vaccines (1 - Tdap) 05/04/2004 05/03/2004 *ADVANCE DIRECTIVE NOT ON FILE 12/23/2015 *DEPRESSION SCREENING, LUI Lao FOR PTS 18 AND OVER 01/03/2018 CKD [place] USE SMARTSET 62625 ( STAGE 3) [place] [address] (STAGE 4) 03/19/2018 03/19/2017, 09/27/2016, 02/18/2016, Additional history exists *LDL AFTER STARTING A STATIN 04/19/2018 Influenza Vaccine (FLU shot) (#1) 2018 07/31/2017, 07/21/2016, 07/20/2015, Additional history exists CKD GFR USE SMARTSET 52277 06/24/201812/22, 09/12/2017, 04/17/2017, Additional history exists BREAST CANCER SCREENING DISC USSION YEARLY AGES 40-75 12/09/2018 12/09/2017, 10/08/2016, 10/06/2015, Additional history exists CKD HGB USE SMARTSET 13149 12/22/201812/22, 09/12/2017, 04/17/2017, Additional history exists CKD PHOS USE SMARTSET 82176 12/22/201812/05, 09/12/2017, 03/19/2017, Additional history exists CKD URINE PROTEIN/CREATININE RATION OR URINE MICROALBUMIN YEARLY USE SMARTSET 66020 12/22/2018 12/22/2017, 03/19/2017, 02/09/2017, Additional history exists [...] fileas of this encounter Visit Diagnoses Diagnosis Puncture wound - Primary Open wound(s) (multiple) of unspecified site(s), without mention of complication Need for diphtheria-tetanus- pertussis (Tdap) vaccine Need for prophylactic vaccination with combined ustsakwfxb-xpqpxxr-irnfxegyv (DTP) vaccine Cellulitis of right elbow in this encounter"
--- OUTSIDE RECORDS SUMMARY | 2023-06-07 08:27 | External Medical Summary | Summary of Care ---
Author Name Unknown Organization [place] [address] Phone Care Team Providers Care An/Ssn 2 4 Operator Name Role Phone Yariel Cardoza MD Primary Care Provide r Reason for Visit * Reason Comments case management Encounter Details Date Type Department Care Team Description 04/21/2018 Personal TrainerGyroscopic Instrument Mechanic Medicine [address] [address] Mariola Mariee RN [address] [place] [address] [place] [address] [phone] Puncture wound*;COPD, severe (HCC);Dyslipidemia, goal LDL below 100;HTN, goal below 140/90 Allergies Active Allergy Reactions [...] actual BMI) 01/19/2016 COPD, severe ([facility]) 12/21/2015 Dyslipidemia, goal LDL below 100 016 [...] COPD, severity to be determined ([facility]) 07/20/2015 12/21/2015 ACQ ESOPHAG DIVERTICULUM 12/22/2004 015 [...] Not on file as of this encounter Progress Notes * Mariola Mariee RN - 04/21/2018 5:03 PM EDT Case Management Assessment - Annual Assessment Is this call for a hospital, long-term or rehab facility discharge to home? No S: Reports: Weight gain: Weight stable at 213 lbs Increased edema: mild swelling in RUE from injury peripheral edema: none in feet at present. Intermittent. Chest pain -denies Increased shortness of breath: denies at rest cough denies dyspnea with light housework (ie-dusting, making the bed, climbing the stairs) and with heavy housework (ie-sweeping or vacuuming) oxygen concentrator, portable, 2L-rest, 2L-activity/exercise and 2L-sleep Chills / Sweats / Fever: temperature of 98.6, denies chills/sweats and denies fever Fall: denies any falls since last Care Management encounter assistive device:none Appetite: Denies vomiting or burning. -mild nausea since taking the antibiotics Bowel: denies problems Bladder: incontinent (stress) Medications: takes all medications as prescribed. and denies side effects Chronic Pain: intermittent arthritic aching of back and knees. Managed without medication. -Acute Pain: RUE due to injury. Managed with Tylenol. Blood Pressure: at today's office visit was 116/78, pulse 66. O: Office visit for follow up to injury, and for case management annual assessment. Alert, oriented, pleasant. Not active with any home health. Active with Office of Aging. Spouse supportive. Injury occurred on Saturday: patient bent over in barn to unplug refrigerator, upon rising back up, hit jose eduardo vicenta hot dog campfire fork hanging on the wall, puncturing her right arm. Seen in weekend clinic, tetanus updated at that time. Medications: takes all medications as prescribed. and denies side effects -confirmed patient picked up the 2 new antibiotics and is taking as ordered. -med rec completed by office nurse, Katrina JULIEN. -confirmed pharmacy of choice as [facility]. A: Patient Centered Prioritized Goals: Patient will have pain well managed. Exacerbations have been prevented, minimized or reduced in severity. Co-morbid conditions identified and managed. Prevent falls or injury. Identified Barriers: Lack of or limited access to reliable transportation and Older than 70 years FUNCTIONAL STATUS: (Definition - assess ability to patient to manage their own care, includes evaluation of activities of daily living, and instrumental activities of daily living, and cognitive abilities status) ADL'S - Needs Assistance With: N/A as pt is independent IADL'S - Needs Assistance With: Grocery Shopping Cognitive and Mental Health: denies problems, alert and oriented x 3 and able to communicate, understand instructions, process information. P: Personal Trainer Interventions: Reinforce Self Management Action Plan established at previous visit Reinforced "call back instructions" if symptoms increase Reinforced sodium restriction Reinforced safety education / fall prevention Reinforced medication regimen - timing / dosing / purpose COPD Exac Plan Monitor the following symptoms for worsening of COPD: Increased shortness of breath Wheezing Increased cough Chest tightness Fever or Chills Increased sputum with change in color and consistency Increased fatigue Decrease in appetite COPD Action Plan: 1. Contact your health care provider as soon as possible 2. Start the following medication: Ventolin inhaler 2 puffs every 4 hours as needed for SOB or wheezing. 3. Drink 6-8 glasses of water per day to help loosen sputum. 4. Continue to take all your regular COPD medicines. 5. May benefit from using your nebulizer - Duoneb every 4 hours as needed for SOB or wheezing PCP Notified of enrollment in CM/HM program: No, notified previously. SNP Member? No Re-evaluation of plan of care and progress towards goals achievement: taking medications as ordered, plans to keep appointments as scheduled, pain managed, BP at goal, LDL at goal. Plan to call patient in June to reassess and update plan of care, instructed to call Personal Trainer or Primary Care Provider with change in symptoms or as needed before next follow-up, verbalizes understanding and agrees with plan. Mariola Mariee RN Outpatient Personal Trainer in this encounter Plan of Treatment Upcoming Encounters Date Type Specialty Care Team Description 04/29/2018 Office Visit Internal Medicine Kellen Mora DO [address] [place] [address] [place] [address] [phone] 05/09/2018 Office Visit Gastroenterology Vilma Austin CRNP 132 [facility] [place] [address] [phone] 06/04/2018 Office Visit Dermatology Jennifer Sebatsian PA-C [address] [place], [place] [id number] 07/28/2018 Office Visit Internal Medicine Yariel Cardoza MD [address] [place] [address] [place] [address] [phone] Health Maintenance Due Date Last Done Comments *ADVANCE DIRECTIVE NOT ON FILE 12/23/2015 *DEPRESSION SCREENING, LUI Lao FOR PTS 18 AND OVER 01/03/2018 CKD LDL USE SMARTSET 65302 ( STAGE 3) [place] [address] (STAGE 4) 03/19/2018 03/19/2017, 09/27/2016, 02/18/2016, Additional history exists *LDL AFTER STARTING A STATIN 04/19/2018 Influenza Vaccine (FLU shot) (#1) 2018 07/31/2017, 07/21/2016, 07/20/2015, Additional history exists CKD GFR USE SMARTSET 61480 06/24/201812/22, 09/12/2017, 04/17/2017, Additional history exists BREAST CANCER SCREENING DISC USSION YEARLY AGES 40-75 12/09/2018 12/09/2017, 10/08/2016, 10/06/2015, Additional history exists CKD HGB USE SMARTSET 20638 12/22/201812/22, 09/12/2017, 04/17/2017, Additional history exists CKD PHOS USE SMARTSET 73267 12/22/201812/05, 09/12/2017, 03/19/2017, Additional history exists CKD URINE PROTEIN/CREATININE RATION OR URINE MICROALBUMIN YEARLY USE SMARTSET 57853 12/22/2018 12/22/2017, 03/19/2017, 02/09/2017, Additional history exists [...] of unspecified site(s), without mention of complication COPD, severe (HCC) Chronic airway obstruction, not elsewhere classified Dyslipidemia, goal LDL below 100 Other and unspecified hyperlipidemia HTN, goal below 140/90 Unspecified essential hypertension in this encounter
--- OUTSIDE RECORDS SUMMARY | 2023-06-07 08:27 | External Medical Summary | Summary of Care ---
Author Name Unknown Organization [place] [address] Phone Care Team Providers Care Railroad Inspector Name Role Phone Yariel Cardoza MD Primary Care Provide r Reason for Visit * Reason Comments APPOINTMENT ? EGD Encounter Details Date Type Department Care Team Description 04/14/2018 Telephone Gastroenterology, [facility] [address] [place] [address] Shakila Rocha DO [address] [place] [address] [phone] APPOINTMENT (? EGD) Allergies Active Allergy Reactions [...] degenerative disc disease 016 Lumbar facet arthropathy ([facility]) 6 Obesity, Class II, BMI 35.0-39.9, with c omorbidity (see actual BMI) 01/19/2016 COPD, severe ([facility]) 12/21/2015 Dyslipidemia, goal LDL below [...] osteoarthritis 08/22/201503/30 COPD, severity to be determined ([facility]) 07/20/2015 12/21/2015 ACQ ESOPHAG DIVERTICULUM [...] encounter Miscellaneous Notes * Telephone Encounter - Shakila Rocha DO - 04/14/2018 2:12 PM EDT I would suggest we have her see one of the squilgeer in the office to get a better history. * Telephone Encounter - Frank Vizcarra, VIRA - 04/14/2018 10:00 AM EDT Pt called [...] Office Visit Gastroenterology Vilma Austin CRNP [address] [facility] [place] [address] 06/04/2018 Office Visit Dermatology Jennifer Sebastian PA-C 16 [place] [address] 07/28/2018 Office Visit Internal Medicine Yariel Cardoza MD [address] [place] [address] [place] [address] Health Maintenance Due Date Last Done Comments DTaP,Tdap,and Td Vaccines (1 - Tdap) 05/04/2004 05/03/2004 *ADVANCE DIRECTIVE NOT ON FILE 12/23/2015 *DEPRESSION SCREENING, LUI Lao FOR PTS 18 AND OVER 01/03/2018 CKD LDL USE SMARTSET 48384 ( STAGE 3) [place] [address]255 (STAGE 4) 03/19/2018 03/19/2017, 09/27/2016, 02/18/2016, Additional history exists Influenza Vaccine (FLU shot) (#1) 2018 07/31/2017, 07/21/2016, 07/20/2015, Additional history exists CKD GFR USE SMARTSET 22671 06/24/201812/22, 09/12/2017, 04/17/2017, Additional history exists BREAST CANCER SCREENING DISC USSION YEARLY AGES 40-75 12/09/2018 12/09/2017, 10/08/2016, 10/06/2015, Additional history exists CKD HGB USE SMARTSET 90805 12/22/201812/22, 09/12/2017, 04/17/2017, Additional history exists CKD PHOS USE SMARTSET 88259 12/22/201812/05, 09/12/2017, 03/19/2017, Additional history exists CKD URINE PROTEIN/CREATININE RATION OR URINE MICROALBUMIN YEARLY USE SMARTSET 01697 12/22/2018 12/22/2017, 03/19/2017, 02/09/2017, Additional history exists [...]
--- OUTSIDE RECORDS SUMMARY | 2023-06-07 08:27 | External Medical Summary | Summary of Care ---
Author Name Unknown Organization [place] [address] Phone Care Team Providers Care Home Health Cna Name Role Phone Yariel Cradoza MD Primary Care Provide r Reason for Visit * Reason Comments APPOINTMENT EGD - [facility]/Followup with Vilma Encounter Details Date Type Department Care Team Description 05/09/2018 Telephone Gastroenterology, [facility] [address] [place] [address] Vilma Austin CRNP 132 [facility] [place] [address] [phone] APPOINTMENT (EGD - [facility]/Followup with Patrick... Allergies Active Allergy Reactions Severity [...] schedulers at GI Dept, and they said [facility] will contact patient to set up date and time of test. Pt will call in after she gets date of test because she needs to be seen three weeks after test. in this encounter Plan of Treatment Upcoming Encounters Date Type Specialty Care Team Description 06/04/2018 Office Visit Dermatology Jennifer Sebastian PA-C [address] [place] [address] [phone] 07/22/2018 Procedure Only Endoscopy Shakila Rohca, [address] [place] [address] [phone] 07/28/2018 Office Visit Internal Medicine Yariel Cardoza MD [address] [place] [address] [place] [address] Health Maintenance Due Date Last Done Comments *ADVANCE DIRECTIVE NOT ON FILE 12/23/2015 *DEPRESSION SCREENING, LUI Lao FOR PTS 18 AND OVER 01/03/2018 CKD LDL USE SMARTSET 27271 ( STAGE 3) [place] [address] (STAGE 4) 03/19/2018 03/19/2017, 09/27/2016, 02/18/2016, Additional history exists *LDL AFTER STARTING A STATIN 04/19/2018 Influenza Vaccine (FLU shot) (#1) 2018 07/31/2017, 07/21/2016, 07/20/2015, Additional history exists CKD GFR USE SMARTSET 23347 06/24/201812/22, 09/12/2017, 04/17/2017, Additional history exists BREAST CANCER SCREENING DISC USSION YEARLY AGES 40-75 12/09/2018 12/09/2017, 10/08/2016, 10/06/2015, Additional history exists CKD HGB USE SMARTSET 21389 12/22/201812/22, 09/12/2017, 04/17/2017, Additional history exists CKD PHOS USE SMARTSET 95164 12/22/201812/05, 09/12/2017, 03/19/2017, Additional history exists CKD URINE PROTEIN/CREATININE RATION OR URINE MICROALBUMIN YEARLY USE SMARTSET 22373 12/22/2018 12/22/2017, 03/19/2017, 02/09/2017, Additional history exists [...]
--- OUTSIDE RECORDS SUMMARY | 2023-06-07 08:27 | External Medical Summary | Summary of Care ---
Author Name Unknown Organization [place] [address] Phone Care Team Providers Care Butcher All Round Name Role Phone Leanne Cardoza MD Primary Care Provide r Reason for Visit * Reason Comments eRx-Medication Refill Encounter Details Date Type Department Care Team Description 03/16/2018 Refill Internal Medicine [address] [address] Hillary White PA-C [address] [place] [address] [place] [address] COPD, severe (HCC) Allergies Active Allergy [...] OR WHEEZING. 360 mL 1 03/17/2018 Active albuterol-ipratro pium (DUONEB) 2.5-0.5 MG/3ML nebulizer solutionIndicatio ns:COPD, severe ([facility]) INHALE 3 MLS VIA NEBULIZER EVERY 4 HOURS NEEDED FOR COUGH, SHORTNESS OF BREATH OR WHEEZING. 360 mL 1 12/20/2017 03/16/20 18 Discontinued as of this encounter Active [...] Telephone Encounter - Leanne Cardoza MD - 03/17/2018 12:19 PM EDT Signed Prescriptions: Disp Refills albuterol-ipratropium (DUONEB) 2.5-0.5 MG/*360 mL 1 Sig: INHALE 3 MLS VIA NEBULIZER EVERY 4 HOURS NEEDED FOR COUGH, SHORTNESS OF BREATH OR WHEEZING. Authorizing Provider: LEANNE CARDOZA * Telephone Encounter - Bia Beltre LPN - 03/17/2018 10:16 AM EDT Pending Prescriptions: Disp Refills albuterol-ipratropium (DUONEB) 2.5-0.5 MG*360 mL 1 Sig: INHALE 3 MLS VIA NEBULIZER EVERY 4 HOURS NEEDED FOR COUGH, SHORTNESS OF BREATH OR WHEEZING. * Telephone Encounter - Bia Beltre LPN - 03/17/2018 10:16 AM EDT Formatting of this note may be different from the original. Pending Prescriptions: Disp Refills albuterol-ipratropium (DUONEB) 2.5-0.5 MG*360 mL 1 Sig: INHALE 3 MLS VIA NEBULIZER EVERY 4 HOURS NEEDED FOR COUGH, SHORTNESS OF BREATH OR WHEEZING. Last Office Visit: 02/21/2018 Next Office Visit: 07/28/2018 Scheduled Provider(s): Leanne Cardoza MD Last date the medication was ordered: 12/20/17 Patient Active Problem List Diagnosis Code Slow [...] Encounters Date Type Specialty Care Team Description 03/26/2018 Procedure Only Endoscopy Shakila Rocha, DO [address] [place] [address] [phone] 06/04/2018 Office Visit Dermatology Jennifer Sebastian PA-C [address] [place] [id number] 07/28/2018 Office Visit Internal Medicine Leanne Cardoza MD [address] [place] [address] [place] [address] [phone] Health Maintenance Due Date Last Done Comments DTaP,Tdap,and Td Vaccines (1 - Tdap) 05/04/2004 05/03/2004 *ADVANCE DIRECTIVE NOT ON FILE 12/23/2015 *DEPRESSION SCREENING, LUI Lao FOR PTS 18 AND OVER 01/03/2018 COLONOSCOPY-EVERY 3 YRS AGES 18-100 03/08/2018 03/08/2015 CKD LDL USE SMARTSET 17728 ( STAGE 3) [place] [address] (STAGE 4) 03/19/2018 03/19/2017, 09/27/2016, 02/18/2016, Additional history exists CKD GFR USE SMARTSET 61507 06/24/201812/22, 09/12/2017, 04/17/2017, Additional history exists BREAST CANCER SCREENING DISC USSION YEARLY AGES 40-75 12/09/2018 12/09/2017, 10/08/2016, 10/06/2015, Additional history exists CKD HGB USE SMARTSET 81327 12/22/201812/22, 09/12/2017, 04/17/2017, Additional history exists CKD PHOS USE SMARTSET 09815 12/22/201812/05, 09/12/2017, 03/19/2017, Additional history exists CKD URINE PROTEIN/CREATININE RATION OR URINE MICROALBUMIN YEARLY USE SMARTSET 08678 12/22/2018 12/22/2017, 03/19/2017, 02/09/2017, Additional history exists DIABETES SCREEN EVERY 3 YRS- AGE 45 AND ABOVE 12/22/2020 12/22/2017, 09/12/2017, 04/17/2017, Additional history exists DXA-SCREENING EVERY 7 YRS-US [...]
--- OUTSIDE RECORDS SUMMARY | 2023-06-07 08:27 | External Medical Summary | Summary of Care ---
Author Name Unknown Organization [place] [address] Phone Care Team Providers Care Maintenance Planner Name Role Phone Yariel Cardoza MD Primary Care Provide r Reason for Visit * Reason Comments APPOINTMENT ? EGD Encounter Details Date Type Department Care Team Description 04/14/2018 Telephone Gastroenterology, [facility] 132 [place] [address] Shakila Rocha DO 132 [facility] [place] [address] [phone] APPOINTMENT (? EGD) Allergies Active Allergy Reactions [...] degenerative disc disease 016 Lumbar facet arthropathy ([facility]) 6 Obesity, Class II, BMI 35.0-39.9, with c omorbidity (see actual BMI) 01/19/2016 COPD, severe ([facility]) 12/21/2015 Dyslipidemia, goal LDL below 100 016 [...] osteoarthritis 08/22/201503/30 COPD, severity to be determined ([facility]) 07/20/2015 12/21/2015 ACQ ESOPHAG DIVERTICULUM 12/22/2004 015 [...] we have her see one of the boarder machine in the office to get a better [...] Dermatology Jennifer Sebastian PA-C [address] [place] [address] [phone] 07/28/2018 Office Visit Internal Medicine Yariel Cardoza MD [address] [place] [address] [place] [address] Health Maintenance Due Date Last Done Comments DTaP,Tdap,and Td Vaccines (1 - Tdap) 05/04/2004 05/03/2004 *ADVANCE DIRECTIVE NOT ON FILE 12/23/2015 *DEPRESSION SCREENING, LUI Lao FOR PTS 18 AND OVER 01/03/2018 CKD LDL USE SMARTSET 41016 ( STAGE 3) [place] [address] (STAGE 4) 03/19/2018 03/19/2017, 09/27/2016, 02/18/2016, Additional history exists Influenza Vaccine (FLU shot) (#1) 2018 07/31/2017, 07/21/2016, 07/20/2015, Additional history exists CKD GFR USE SMARTSET 60585 06/24/201812/22, 09/12/2017, 04/17/2017, Additional history exists BREAST CANCER SCREENING DISC USSION YEARLY AGES 40-75 12/09/2018 12/09/2017, 10/08/2016, 10/06/2015, Additional history exists CKD HGB USE SMARTSET 22210 12/22/201812/22, 09/12/2017, 04/17/2017, Additional history exists CKD PHOS USE SMARTSET 15581 12/22/201812/05, 09/12/2017, 03/19/2017, Additional history exists CKD URINE PROTEIN/CREATININE RATION OR URINE MICROALBUMIN YEARLY USE SMARTSET 24402 12/22/2018 12/22/2017, 03/19/2017, 02/09/2017, Additional history exists [...]
--- OUTSIDE RECORDS SUMMARY | 2023-06-07 08:27 | External Medical Summary | Summary of Care ---
Author Name Unknown Organization [place] [address] Phone Care Team Providers Care Ship Boss Name Role Phone Yariel Cardoza MD Primary Care Provide r Reason for Visit * Reason Comments RECHECK 2 day return Encounter Details Date Type Department Care Team Description 04/21/2018 Office Visit Internal Medicine [address] [id number] Hillary White PA-C [address] [place] [address] [place] [address] Puncture wound* Allergies Active Allergy Reactions Severity Noted Date [...] (see actual BMI) 01/19/2016 COPD, severe ([facility]) 12/21/2015 Dyslipidemia, goal LDL below 100 016 [...] 08/22/201503/30 COPD, severity to be determined ([facility]) 07/20/2015 12/21/2015 ACQ ESOPHAG DIVERTICULUM 12/22/2004 015 [...] Vital Sign Reading Time Taken Blood Pressure 116/78 04/21/2018 11:17 AM EDT Pulse 66 04/21/2018 11:17 AM EDT Temperature 37 C (98.6 F) 04/21/2018 11: 17 AM EDT Respiratory Rate 14 04/21/2018 11:1 7 AM EDT Oxygen Saturation - - Inhaled Oxygen Concentration - - Weight 96.9 kg (213 lb 9.6 oz) 04/21/20 18 11:17 AM EDT Height - - Body Mass Index 39.71 04/21/2018 11:17 AM EDT in this encounter Progress Notes * Hillary White PA-C - 04/21/2018 11:44 AM EDT Formatting of this note may be different from the original. Subjective Jayla Hayes is a 72 year old female. Chief Complaint Patient presents with RECHECK 2 day return Nursing Notes: Katrina Alaniz, [facility] 04/21/18 1144 Signed 2 day return from weekend clinic. Saturday she stabbed herself in the arm with a long fork to make hot dogs. Dr Mora prescribed Keflex and Cipro. Brief Clinical History Ms. Hayes is a 72 year old woman last seen in Internal Medicine 2 months ago (02-21-18). She has h/oCOPD and heart failure, due for eval of Lumbar facet arthropathy (HCC). HPI: Jayla Hayes is a 72 year old female presenting to the office today for follow up regarding puncture wound. She was seen by Dr. Mora at Saturday Clinic for concern of getting a vicenta hot dog fork stuck in her right forearm. She was trying to plug in an old fridge in their barn, and she didn't see the hot dog fork on the wall. When she stood up, she got the fork stuck in the right forearm near her elbow. She had her Tetanus vaccination updated. She was placed on Keflex and Cipro. She overall is still having a lot of pain in the surrounding area, but she has not had any fever, sweats or chills. She does not think that her symptoms have worsened. She is tolerating abx well. No diarrhea. She has had some mild nausea, but no vomiting. PMH: Patient Active Problem List Diagnosis Code [...] Current Outpatient Prescriptions Medication Sig Dispense Refill cephalexin (KEFLEX) 500 MG Capsule Take 1 Cap by mouth 3 times a day for 7 days. 21 Cap 0 ciprofloxacin (CIPRO) 250 MG Tablet Take 1 Tab by mouth every 12 hours for 7 days. 14 Tab 0 albuterol-ipratropium (DUONEB) 2.5-0.5 MG/3ML nebulizer [...] rash Motrin [Ibuprofen] Rash Review of Systems All other systems reviewed and negative except as specified or as mentioned in HPI. Objective BP 116/78 | Pulse 66 | Temp (Src) 98.6 (Tympanic) | Resp 14 | Wt 213 lbs 9.6 oz (96.888kg) | BMI 39.71 kg/m | BSA 2.05 m Physical Exam General: Well-Developed. Well nourished. Well appearing. No acute distress. Musculoskeletal: ROM intact and appears normal. No gait disturbance. Mild edema of the right lateral forearm. Tenderness to palpation. Skin: Warm and dry. No rash. Very faint erythema of the dorsal forearm. A small ring approximately 4 cm around of orange/erythema around the punctate middle wound. ASSESSMENT/PLAN: T14.8XXA Puncture wound (primary encounter diagnosis) Continue abx therapy. Overall, she appears to be doing well. Continued tenderness/edema in the area. Continue PRN Tylenol. Call if symptoms change or worsen, but otherwise f/u at the beginning of next week. Hillary White PA-C in this encounter Nursing Notes * Katrina Alaniz, [facility] - 04/21/2018 11:14 AM EDT 2 day return from weekend clinic. Saturday she stabbed herself in the arm with a long fork to make hot dogs. Dr Mora prescribed Keflex and Cipro. in this encounter Plan of Treatment Upcoming Encounters Date Type Specialty Care Team Description 04/29/2018 Office Visit Internal Medicine Kellen [address] [place] [address] [phone] 05/09/2018 Office Visit Gastroenterology Vilma Austin CRNP [address] [facility] [place] [address] [phone] 06/04/2018 Office Visit Dermatology Jennifer Sebastian PA-C [address] [place] [address] 07/28/2018 Office Visit Internal Medicine Yariel Cardoza MD [address] [place] [address] [place] [address] Health Maintenance Due Date Last Done Comments *ADVANCE DIRECTIVE NOT ON FILE 12/23/2015 *DEPRESSION SCREENING, LUI Lao FOR PTS 18 AND OVER 01/03/2018 CKD LDL USE SMARTSET 01133 ( STAGE 3) [place] [address] (STAGE 4) 03/19/2018 03/19/2017, 09/27/2016, 02/18/2016, Additional history exists *LDL AFTER STARTING A STATIN 04/19/2018 Influenza Vaccine (FLU shot) (#1) 2018 07/31/2017, 07/21/2016, 07/20/2015, Additional history exists CKD GFR USE SMARTSET 51090 06/24/201812/22, 09/12/2017, 04/17/2017, Additional history exists BREAST CANCER SCREENING DISC USSION YEARLY AGES 40-75 12/09/2018 12/09/2017, 10/08/2016, 10/06/2015, Additional history exists CKD HGB USE SMARTSET 61257 12/22/201812/22, 09/12/2017, 04/17/2017, Additional history exists CKD PHOS USE SMARTSET 30395 12/22/201812/05, 09/12/2017, 03/19/2017, Additional history exists CKD URINE PROTEIN/CREATININE RATION OR URINE MICROALBUMIN YEARLY USE SMARTSET 53136 12/22/2018 12/22/2017, 03/19/2017, 02/09/2017, Additional history exists [...] of unspecified site(s), without mention of complication in this encounter"
--- OUTSIDE RECORDS SUMMARY | 2023-06-07 08:27 | External Medical Summary | Summary of Care ---
Author Name Unknown Organization [place] [address] Phone Care Team Providers Care Body Worker Name Role Phone Yariel Cardoza MD Primary Care Provide r Reason for Visit * Reason Comments RECHECK Encounter Details Date Type Department Care Team Description 05/09/2018 Office Visit Gastroenterology [address] [place] [address] Vilma Austin CRNP [address] [facility] [place] [address] Dysphagia, unspecified type*;Gastroesophageal reflux disease without esophagitis;Chronic constipation;Abdominal bloating Allergies Active Allergy Reactions Severity Noted [...] actual BMI) 01/19/2016 COPD, severe ([facility]) 12/21/2015 Dyslipidemia, goal LDL below 100 016 [...] COPD, severity to be determined ([facility]) 07/20/2015 12/21/2015 ACQ ESOPHAG DIVERTICULUM 12/22/2004 015 [...] Vital Sign Reading Time Taken Blood Pressure 138/78 05/09/2018 12:12 PM EDT Pulse 60 05/09/2018 12:12 PM EDT Temperature 36.3 C (97.3 F) 05/09/2018 1 2:12 PM EDT Respiratory Rate 16 05/09/2018 12:1 2 PM EDT Oxygen Saturation - - Inhaled Oxygen Concentration - - Weight 97.1 kg (214 lb) 05/09/2018 12:1 2 PM EDT Height 156.2 cm (5' 1.5") 05/09/2018 12 :12 PM EDT Body Mass Index 39.78 05/09/2018 12:12 PM EDT in this encounter Progress Notes * Vilma Austin CRNP - 05/09/2018 12:25 PM EDT Formatting of this note may be different from the original. DATE OF SERVICE: 05/09/18 CC: Reflux, trouble swallowing HPI: 70 year old female with a lifelong tendency to constipation here for evaluation of bloating. She was worked up in spring 2014 for nausea, bloating, and abdominal pain. EGD on 01/22/16 was unremarkable except for a small hiatal hernia. Colonoscopy on 03/08/15 showed two small adenomas. She has been on omeprazole and dicyclomine since then. Over the past year bloating has worsened. It tends to occur after meals, "feels like I'm going to explode" and associated with some relief by passing flatus (foul smelling) or eructation. It is not adaily occurrence. Presently, she has 1-2 bowel movements daily. There is no fever, weight loss, or rectal bleeding. She has occasional nausea without vomiting. * GES, FODMAPs diet. 12/04/16 Ms. Hayes present for scheduled recheck for bloating. She continues with this intermittently. She did not follow the FODMAPs diet as she didn't notice a difference. She has tried to eat smaller portions which tends to help. Bowel pattern is (while on Miralax every other day) she passes 3-4 soft, formed stools/day. She does not have significant abdominal pain, night time pain. No nausea/vomiting. No unexplained weight loss. 05/09/18: Pt previously seen by SAMIR Hunt (see previous visit HPI above). She is having better control of bloating and constipation on Miralax 3x a week. Colonoscopy just done in March looks ok, + hemorrhoids, adenomatous polyps, due for repeat in 3 yrs time. She is here mainly w c/o reflux and regurgitations, trouble swallowing foods - sometimes they get stuck momentarily in mid esophagus especially ice cream, fries, toast. She denies any n/v, epigastricpain. Back on Omeprazole now. ROS: See HPI above; Past Medical History: Diagnosis Date Allergic rhinitis [...] DIAGNOSTIC (RECTUM) 03/08/2015 adenomatous polyps, repeat 3 yrs/[facility] COLONOSCOPY, DIAGNOSTIC (RECTUM) 03/26/2018 adenomatous & serrated adenomatous polyps, repeat 3 yrs/[facility] EGD, FLEXIBLE, DIAGNOSTIC 01/21/2015 [facility] ESOPHAGOSCOPY RIGID TRANSORAL HYPOPHARYNX ESOPHAGUS 2005 [...] OF TUBE(S) 1984 both ovaries intact, fibroids Family History Problem Relation Age of Onset Heart Disorder Father [place] age 55 Heart Disorder Mother CAD, 84 in '02 Arthritis Mother in fingers Diabetes Brother half brother Stroke Aunt (Unspecified) 80's Stroke Uncle (Unspecified) 60's EXAM: BP 138/78 | Pulse 60 | Temp (Src) 97.3 (Tympanic) | Resp 16 | Ht 5' 1.5" (1.562m) | Wt 214 lbs (97.070kg) | BMI 39.78 kg/m | BSA 2.05 m GENERAL: 72 year old obese female well developed and well nourished in no acute distress SKIN: no rashes, ulcers, or spider angiomata HEENT: normocephalic, sclera clear, pharynx normal NECK: supple, no lymphadenopathy, no masses or thyroid enlargement LUNGS: diminished sounds bilaterally, wears O2 per NC while walking 2L. HEART: regular rate & rhythm, no murmurs and no gallops ABDOMEN: normo-active bowel sounds, soft, non tender, no masses palpated. EXTREMITIES: no palmar erythema, no edema, no skin discoloration, no clubbing, no cyanosis NEURO: no lateralizing findings, Sensory/Motor grossly normal IMPRESSION: 72 year old female with: 1. Bloating, constipation; controlled: - Continue Miralax 17g 3x a week - OK to continue holding Dicyclomine. 2. Dysphagia, reflux. Hx of Zenker's diverticulum repair in 2004; EGD in 2014 showed signs of hiatal hernia - Trial increase Omeprazole to 20mg BID - Schedule EGD evaluation - Discussed with her other causes of dysphagia other than acid reflux including esophageal dysmotility, or perhaps she may also have slight gastroparesis. Will consider further workup after EGD is completed. FOLLOW UP: after EGD. SAMIR Santillan Gastroenterology, [facility] 05/09/18 in this encounter Nursing Notes * Елена Brooks RN - 05/09/2018 12:16 PM EDT Pt Had a colonoscopy 1 mo ago. Pt states that when she eats ice cream, frisian fries, she gets some reflux up into her throat. She states sometimes foods feel like they are sticking. Pt states the reflux goes clear to her nose, she also has a lot of belching. She states she mentioned this at her colonoscopy and Dr Rocha stated that she needed an EGD, then he scheduled her for this appt. Pt has been taking omeprazole 20 mg once daily. Pt states she has had issues for a long time, nothing is being done about it. in this encounter Plan of Treatment Upcoming Encounters Date Type Specialty Care Team Description 06/04/2018 Office Visit Dermatology Jennifer Sebastian PA-C [address] [place] [address] 07/22/2018 Procedure Only Endoscopy Shakila Rocha, DO [address] [place] [address] [phone] 07/28/2018 Office Visit Internal Medicine Yariel Cardoza MD [address] [place] [address] [place] [address] Scheduled Tests Name Priority Associated Diagnoses Order S chedule EGD, FLEXIBLE, DIAGNOSTIC Routine Dysphagia, unspecified type Ordered: 05/09/2018 Health Maintenance Due Date Last Done Comments *ADVANCE DIRECTIVE NOT ON FILE 12/23/2015 *DEPRESSION SCREENING, LUI Lao FOR PTS 18 AND OVER 01/03/2018 CKD LDL USE SMARTSET 11742 ( STAGE 3) [place] [address] (STAGE 4) 03/19/2018 03/19/2017, 09/27/2016, 02/18/2016, Additional history exists *LDL AFTER STARTING A STATIN 04/19/2018 Influenza Vaccine (FLU shot) (#1) 2018 07/31/2017, 07/21/2016, 07/20/2015, Additional history exists CKD GFR USE SMARTSET 84902 06/24/201812/22, 09/12/2017, 04/17/2017, Additional history exists BREAST CANCER SCREENING DISC USSION YEARLY AGES 40-75 12/09/2018 12/09/2017, 10/08/2016, 10/06/2015, Additional history exists CKD HGB USE SMARTSET 11619 12/22/201812/22, 09/12/2017, 04/17/2017, Additional history exists CKD PHOS USE SMARTSET 49995 12/22/201812/05, 09/12/2017, 03/19/2017, Additional history exists CKD URINE PROTEIN/CREATININE RATION OR URINE MICROALBUMIN YEARLY USE SMARTSET 81316 12/22/2018 12/22/2017, 03/19/2017, 02/09/2017, Additional history exists [...] fileas of this encounter Visit Diagnoses Diagnosis Dysphagia, unspecified type - Primary Gastroesophageal reflux dise ase without esophagitis Esophageal reflux Chronic constipation Unspecified constipation Abdominal bloating Flatulence, eructation, and gas pain in this encounter
--- OUTSIDE RECORDS SUMMARY | 2023-06-07 08:27 | External Medical Summary | Summary of Care ---
Author Name Unknown Organization [place] [address] Phone Care Team Providers Care Rock Singer Name Role Phone Yariel Cardoza MD Primary Care Provide r Reason for Visit * Reason Comments case management Encounter Details Date Type Department Care Team Description 06/06/2017 Manager Of MedicalRadiation Control Health Physicist Medicine [address] [address] Mariola Mariee RN [address] [place] [address] [place] [id number] COPD, severe (HCC)*;HTN, goal below 140/90 Allergies Active Allergy Reactions [...] week 255 g 0 09/27/2016 Active oxygen GASIndications:Hypoxia Use 2 L/min(Oxygen) as directed continuous. 1 Each 0 02/18/2017 Active as of this encounter Active Problems [...] omorbidity (see actual BMI) 01/19/2016 COPD, severe ([facility]) 12/21/2015 Dyslipidemia, goal LDL below 100 [...] osteoarthritis 08/22/201503/30 COPD, severity to be determined ([facility]) 07/20/2015 12/21/2015 ACQ ESOPHAG DIVERTICULUM 12/22/2004 [...] Progress Notes * Mariola Mariee RN - 04/14/2018 7:43 AM EDT Case Management Assessment - Follow Up Assessment Is this call for a hospital, usp or rehab facility discharge to home? No S: Reports: Weight gain: Weight stable at 212 lbs Increased edema: peripheral edema: bilateral lower extremities Chest pain - denies -occasional mild dizziness with position changes -patient reports she has ordered 'zippered compression stockings' but they have not arrived yet. Increased shortness of breath: denies at rest cough denies dyspnea with light housework (ie-dusting, making the bed, climbing the stairs) oxygen concentrator, portable, 2L-rest, 2L-activity/exercise and 2L-sleep Chills / Sweats / Fever: temperature of 97.7, denies chills/sweats and denies fever Fall: denies any falls since last Care Management encounter Appetite: denies nausea, vomiting, burning, decreased appetite Bowel: denies problems Bladder: incontinent at times Medications: takes all medications as prescribed. and denies side effects Chronic Pain: denies -sore outer right calf, on/off for couple months. Patient feels related to her cholesterol medication Blood Pressure: at today's office visit was 116/70, pulse 68. O: Office visit for 3 month follow up assessment. Met with patient prior to office visit. Alert, oriented, pleasant. Patient is accompanied by spouse. Reports she finally got her scooter - they bought it themselves. Wanted to have it in time for the [employer]. Wears reading glasses. Discussing possible transfer to a new PCP - undecided yet. Medications: takes all medications as prescribed. and denies side effects -med rec completed by office visit nurse, Елена Johnston RN. -confirmed pharmacy of choice as [facility]. A: Patient Centered Prioritized Goals: Patient will have an AD completed and on file with PCP Exacerbations have been prevented, minimized or reduced in severity. Co-morbid conditions identified and managed. Identified Barriers: Older than 70 years FUNCTIONAL [...] to communicate, understand instructions, process information. P: Manager Of Medical Interventions: Reinforce Self Management Action Plan established at previous visit Reinforced "call back instructions" if symptoms increase Updated managing provider Reinforced safety education / fall prevention Reinforced medication regimen - timing / dosing / purpose Discussed Advanced Directives: reports she has the information/forms at home, but hasn't done anything with them yet. Not ready to complete at this time. COPD: Pt instructed to: -Call with increased SOB, wheezing, chest tightness, increased cough, increased sputum with change in color or consistency and fever. -Wash hands often -Drink plenty of fluids -Use inhalers as directed, do not stop or skip doses -Avoid stress -Rest when tired or SOB -Avoid triggers -Clean inhalers once a week PCP Notified of enrollment in CM/HM program: No SNP Member? No Re-evaluation of plan of care and progress towards goals achievement: taking medications as ordered, plans to keep appointments as scheduled, pain managed, now has a scooter. Plan to call patient in 3 months, and as needed, to reassess and update plan of care, instructed tocall Manager Of Medical or Primary Care Provider with change in symptoms or as needed before next follow-up, verbalizes understanding and agrees with plan. Mariola Mariee RN Outpatient Manager Of Medical in this encounter Plan of Treatment Upcoming Encounters Date Type Specialty Care Team Description 05/09/2018 Office Visit Gastroenterology Vilma Austin, SAMIR [address] [place] [address] [phone] 06/04/2018 Office Visit Dermatology Jennifer Sebastian PA-C [address] [place] [id number] 07/28/2018 Office Visit Internal Medicine Yariel Cardoza MD [address] [place] [address] [place] [address] [phone] Health Maintenance Due Date Last Done Comments DTaP,Tdap,and Td Vaccines (1 - Tdap) 05/04/2004 05/03/2004 *ADVANCE DIRECTIVE NOT ON FILE 12/23/2015 *DEPRESSION SCREENING, LUI Lao FOR PTS 18 AND OVER 01/03/2018 CKD LDL USE SMARTSET 10137 ( STAGE 3) [place] [address] (STAGE 4) 03/19/2018 03/19/2017, 09/27/2016, 02/18/2016, Additional history exists Influenza Vaccine (FLU shot) (#1) 2018 07/31/2017, 07/21/2016, 07/20/2015, Additional history exists CKD GFR USE SMARTSET 54151 06/24/201812/22, 09/12/2017, 04/17/2017, Additional history exists BREAST CANCER SCREENING DISC USSION YEARLY AGES 40-75 12/09/2018 12/09/2017, 10/08/2016, 10/06/2015, Additional history exists CKD HGB USE SMARTSET 00963 12/22/201812/22, 09/12/2017, 04/17/2017, Additional history exists CKD PHOS USE SMARTSET 95566 12/22/201812/05, 09/12/2017, 03/19/2017, Additional history exists CKD URINE PROTEIN/CREATININE RATION OR URINE MICROALBUMIN YEARLY USE SMARTSET 83799 12/22/2018 12/22/2017, 03/19/2017, 02/09/2017, Additional history exists [...] encounter Visit Diagnoses Diagnosis COPD, severe (HCC) - Primary Chronic airway obstruction, not elsewhere classified HTN, goal below 140/90 Unspecified essential hypertension in this encounter
--- OUTSIDE RECORDS SUMMARY | 2023-06-07 08:27 | External Medical Summary | Summary of Care ---
Author Name Unknown Organization [place] [address] Phone Care Team Providers Care Dressing Room Attendant Name Role Phone Yariel Cardoza MD Primary Care Provide r Reason for Visit * Reason Comments case management Encounter Details Date Type Department Care Team Description 11/22/2017 Metal Hanging SupervisorTarget Aircraft Technician Medicine [address] [address] Mariola Mariee RN [address] [place] [address] [place] [id number] Hospital discharge follow-up*;Influenza A;COPD exacerbation (HCC) Allergies Active Allergy Reactions Severity Noted [...] Take 81 mg by mouth daily. Active albuterol-ipratro pium (DUONEB) 2.5-0.5 MG/3ML nebulizer solutionIndicatio ns:COPD, severe (HCC) INHALE 3 MLS VIA NEBULIZER EVERY 4 HOURS NEEDED FOR COUGH, SHORTNESS OF BREATH OR WHEEZING. 120 Vial 2 11/12/2016 12/21/19 18 Discontinued albuterol (VENTOLIN HFA) 108 (90 BASE) MCG/ACT inhaler Inhale 2 Puffs by mouth every 4 hours as needed for Wheezing. 3 Inhaler 1 01/07/2017 02/10/20 18 Discontinued atenolol (TENORMIN) 50 MG Tablet Take 0.5 Tabs by mouth daily. 90 Tab 1 06/06/2017 02/25/20 18 Discontinued atorvaSTATin (LIPITOR) 20 MG TabletIndications :Dyslipidemia, goal LDL below 100 Take 1 Tab by mouth daily. 90 Tab 1 07/08/2017 01/18/20 18 Discontinued hydrochlorothiazi de (HYDRODIURIL) 25 MG Tablet TAKE ONE TABLET BY MOUTH DAILY 90 Tab 1 07/12/2017 01/18/20 18 Discontinued KLOR-CON 10 10 MEQ TBCR TAKE ONE TABLET BY MOUTH DAILY 30 Tab 5 08/30/2017 03/07/20 18 Discontinued as of this encounter Active [...] Progress Notes * Mariola Mariee RN - 11/22/2017 11:21 AM EST Case Management Assessment - CHRISTIE Assessment Is this call for a hospital, retirement or rehab facility discharge to home? Yes - patient was inpatient at [facility] from 11/17/17 to 11/20/17. Discharge dx: Influenza A, acute hypxoic respiratory failure, acute COPD exacerbation, elevated troponin due to demand ischemia. S: Reports: Increased edema: peripheral edema: trace feet/ankles Chest pain - denies Increased shortness of breath: denies at rest cough daily in AM, daily in PM and productive dyspnea with daily activities and with light housework (ie-dusting, making the bed, climbing the stairs) oxygen concentrator, portable, 2L-rest, 2L-activity/exercise and 2L-sleep Chills / Sweats / Fever: temperature of 98.2, denies chills/sweats and denies fever Fall: denies any falls since last Care Management encounter assistive device:none Appetite: reports increased appetite since on the prednisone denies nausea, vomiting, burning, decreased appetite Bowel: denies problems Bladder: denies problems -intermittent stress incontinence, cm with cough Medications: takes all medications as prescribed. and denies side effects Chronic Pain: arthritic aching, intermittent, varied areas Blood Pressure: at today's office visit was 128/82, pulse 60. O: Office visit for post hospital discharge follow up. Met with patient, and daughter - Cathy, prior to PCP follow up appointment. Alert, oriented, pleasant. Independent with ADL's, needs assist withIADL's. Reports overall condition as "tired". Sleeping in recliner - sleep disturbed by cough. Lives with spouse and daughter. Medications: takes all medications as prescribed. and denies side effects -med rec completed by office visit nurse, Gracie Tong LPN -confirmed pharmacy of choice as [facility] in [place]. A: Patient Centered Prioritized Goals: Patient will have pain well managed. Exacerbations have been prevented, minimized or reduced in severity. Co-morbid conditions identified and managed. Patient will have an AD completed and on file with PCP. Identified Barriers: Older than 70 years P: Metal Hanging Supervisor Interventions: Reinforce Self Management Action Plan established at previous visit Reinforced "call back instructions" if symptoms increase Reinforced sodium restriction Reinforced safety education / fall prevention Reinforced medication regimen - timing / dosing / purpose Explained/reinforced role of piano case maker. Encouraged to call with any issues or concerns. Gave direct phone number and contact information. COPD: Pt instructed to: -Call with increased [...] to keep appointments as scheduled, pain managed, denies issues or needs. LDL at goal of <100. BP at goal of <140/90. Plan to call patient next week to reassess and update plan of care, instructed to call Case Manageror Primary Care Provider with change in symptoms or as needed before next follow-up, verbalizes understanding and agrees with plan. Mariola Mariee RN Outpatient Metal Hanging Supervisor in this encounter Plan of Treatment Upcoming Encounters Date Type Specialty Care Team Description 04/29/2018 Office Visit Internal Medicine Kellen Mora[address] [place] [address] [phone] 05/09/2018 Office Visit Gastroenterology Vilma Austin CRNP [address] [facility] [place] [address] [phone] 06/04/2018 Office Visit Dermatology Jennifer Sebastian PA-C [address] [place] [address] 07/28/2018 Office Visit Internal Medicine Yariel Cardoza MD [address] [place] [address] [place] [id number] Health Maintenance Due Date Last Done Comments *ADVANCE DIRECTIVE NOT ON FILE 12/23/2015 *DEPRESSION SCREENING, LUI Lao FOR PTS 18 AND OVER 01/03/2018 CKD LDL USE SMARTSET 60564 ( STAGE 3) [place] 56[address] (STAGE 4) 03/19/2018 03/19/2017, 09/27/2016, 02/18/2016, Additional history exists *LDL AFTER STARTING A STATIN 04/19/2018 Influenza Vaccine (FLU shot) (#1) 2018 07/31/2017, 07/21/2016, 07/20/2015, Additional history exists CKD GFR USE SMARTSET 64817 06/24/201812/22, 09/12/2017, 04/17/2017, Additional history exists BREAST CANCER SCREENING DISC USSION YEARLY AGES 40-75 12/09/2018 12/09/2017, 10/08/2016, 10/06/2015, Additional history exists CKD HGB USE SMARTSET 58344 12/22/201812/22, 09/12/2017, 04/17/2017, Additional history exists CKD PHOS USE SMARTSET 45497 12/22/201812/05, 09/12/2017, 03/19/2017, Additional history exists CKD URINE PROTEIN/CREATININE RATION OR URINE MICROALBUMIN YEARLY USE SMARTSET 92364 12/22/2018 12/22/2017, 03/19/2017, 02/09/2017, Additional history exists [...] fileas of this encounter Visit Diagnoses Diagnosis Hospital discharge follow-up - Primary Other follow-up examination Influenza A Influenza with other respiratory manifestations COPD exacerbation (HCC) Obstructive chronic bronchitis with exacerbation in this encounter
--- OUTSIDE RECORDS SUMMARY | 2023-06-07 08:28 | External Medical Summary | Summary of Care ---
Author Name Unknown Organization [place] [address] Phone Care Team Providers Care Engine Room Operator Name Role Phone Yariel Cardoza MD Primary Care Provide r Encounter Details Date Type Department Care Team Description 01/09/2018 Result Scan Unspecified Department <No scans attached> [...] per week 255 g 0 09/27/2016 Active albuterol (VENTOLIN HFA) 108 (90 BASE) MCG/ACT inhaler Inhale 2 Puffs by mouth every 4 hours as needed for Wheezing. 3 Inhaler 1 01/07/2017 Active oxygen GASIndications:Hypo bryan Use 2 L/min(Oxygen) as directed continuous. 1 Each 0 02/18/2017 Active atenolol (TENORMIN) 50 MG Tablet Take 0.5 Tabs by mouth daily. 90 Tab 1 06/06/2017 Active atorvaSTATin (LIPITOR) 20 MG TabletIndications:D yslipidemia, goal LDL below 100 Take 1 Tab by mouth daily. 90 Tab 1 07/08/2017 Active hydrochlorothiazide (HYDRODIURIL) 25 MG Tablet TAKE ONE TABLET BY MOUTH DAILY 90 Tab 1 07/12/2017 Active budesonide (PULMICORT) 0.5 MG/2ML nebulizer solution INHALE ONE UNIT DOSE VIAL VIA NEBULIZER TWO TIMES A DAY. 3 08/03/2017 Active triamcinolone acetonide (ARISTOCORT) 0.025 % ointment APPLY TOPICALLY TO AFFECTED AREA TWICE DAILY 0 06/20/2017 Active KLOR-CON 10 10 MEQ TBCR TAKE ONE TABLET BY MOUTH DAILY 30 Tab 5 08/30/2017 Active meclizine (ANTIVERT) 25 MG Tablet TAKE 1 TAB EVERY 6HRS NEEDED FOR DIZZINESS/VERTIGO 10 Tab 0 09/10/2017 Active furosemide (LASIX) 20 MG TabletIndications:B ilateral edema of lower extremity,Pulmonary hypertension TAKE 1 TABLET BY MOUTH DAILY NEEDED (SWELLING). FOR FLUID ACCUMULATION OR WEIGHT GAIN 30 Tab 5 10/10/2017 Active Aspirin 81 MG Tablet Take 81 mg by mouth daily. Active albuterol-ipratropi um (DUONEB) 2.5-0.5 MG/3ML nebulizer solutionIndications :COPD, severe (HCC) INHALE 3 MLS VIA NEBULIZER EVERY 4 HOURS NEEDED FOR COUGH, SHORTNESS OF BREATH OR WHEEZING. 360 mL 1 12/20/2017 Active as of this encounter Active Problems [...] COPD, severity to be determined ([facility]) 07/20/2015 12/21/2015 ACQ ESOPHAG DIVERTICULUM 12/22/2004 [...] Encounters Date Type Specialty Care Team Description 04/02/2018 Procedure Only Endoscopy Shakila Rocha, DO [address] [place] [address] [phone] 06/04/2018 Office Visit Dermatology Jennifer Sebastian PA-C [address] [place] [address] 07/28/2018 Office Visit Internal Medicine Yariel Cardoza MD [address] [place] [address] [place] [address] Health Maintenance Due Date Last Done Comments DTaP,Tdap,and Td Vaccines (1 - Tdap) 05/04/2004 05/03/2004 *ADVANCE DIRECTIVE NOT ON FILE 01/08/2015 *DEPRESSION SCREENING, LUI Lao FOR PTS 18 AND OVER 01/03/2018 COLONOSCOPY-EVERY 3 YRS AGES 18-100 03/08/2018 03/08/2015 CKD LDL USE SMARTSET 42736 ( STAGE 3) [place] 285[address] (STAGE 4) 03/19/2018 03/19/2017, 09/27/2016, 02/18/2016, Additional history exists CKD GFR USE SMARTSET 59817 06/24/201812/22, 09/12/2017, 04/17/2017, Additional history exists BREAST CANCER SCREENING DISC USSION YEARLY AGES 40-75 12/09/2018 12/09/2017, 10/08/2016, 10/06/2015, Additional history exists CKD HGB USE SMARTSET 48995 12/22/201812/22, 09/12/2017, 04/17/2017, Additional history exists CKD PHOS USE SMARTSET 16997 12/22/201812/05, 09/12/2017, 03/19/2017, Additional history exists CKD URINE PROTEIN/CREATININE RATION OR URINE MICROALBUMIN YEARLY USE SMARTSET 69752 12/22/2018 12/22/2017, 03/19/2017, 02/09/2017, Additional history exists DIABETES SCREEN EVERY 3 YRS- AGE 45 AND ABOVE 12/22/2020 12/22/2017, 09/12/2017, 04/17/2017, Additional history exists DXA-SCREENING EVERY 7 YRS-US E SMARTSET# 0358 TO ORDER 08/17/2022 08/17/2015 PNEUMOCOCCAL ADULT 65 YRS AND OVER Completed 2016, 09/21/2015 Influenza Vaccine (FLU shot) Completed , 07/21/2016, 07/20/2015, Additional history exists as of this encounter Implants Not on fileas of this encounter Results * RADIOLOGY SCANNED RESULT (01/09/2018) in this encounter Insurance Payer Benefit Plan / Group Subscriber ID Type Phone Address [facility] PREFERRED COMPLETE RX [id number] Medicare [phone] [facility] [place] [phone] as of this encounter
--- OUTSIDE RECORDS SUMMARY | 2023-06-07 08:28 | External Medical Summary | Summary of Care ---
Author Name Unknown Organization [place] [address] Phone Care Team Providers Care Pastry Decorator Name Role Phone Yariel Cardoza MD Primary Care Provide r Reason for Visit * Reason Comments ADVICE Encounter Details Date Type Department Care Team Description 01/16/2018 Telephone Internal Medicine [address] [address] Josie Ryan PA-C [address] [place] [address] [place] [address] ADVICE Allergies Active Allergy Reactions Severity Noted Date [...] Encounter - Maria Antonia Whiteside LPN - 01/16/2018 1:36 PM EDT Message given to pt * Telephone Encounter - Josie Ryan PA-C - 01/16/2018 1:19 PM EDT She can try taking the atorvastatin 3 times a week. This will still give her the benefits of a statin but hopefully won't cause the leg pain. If the leg pain returns, stop, and we can try another med. * Telephone Encounter - Ashley Dominguez LPN - 01/16/2018 12:39 PM EDT Pt seen one week ago for leg pain. Was advised to stop cholesterol medication. Pt states leg pain has subsided. Questioning if should restart cholesterol medication or if provider would like to change cholesterol med? Pharmacy confirmed. * Telephone Encounter - Paulette Sandy OSA - 01/16/2018 12:37 PM EDT Reason for patient's call: Medication Caller was transferred to [facility] at the dedicated phone nurse line. in this encounter Plan of Treatment Upcoming Encounters Date Type Specialty Care Team Description 04/02/2018 Procedure Only Endoscopy Shakila Rocha, [address] [facility] [place] [address] [phone] 06/04/2018 Office Visit Dermatology Jennifer Sebastian PA-C [address] [place] [address] 07/28/2018 Office Visit Internal Medicine Yariel Cardoza MD [address] [place] [address] [place] [address] [phone] Health Maintenance Due Date Last Done Comments DTaP,Tdap,and Td Vaccines (1 - Tdap) 05/04/2004 05/03/2004 *ADVANCE DIRECTIVE NOT ON FILE 01/08/2015 *DEPRESSION SCREENING, LUI Lao FOR PTS 18 AND OVER 01/03/2018 COLONOSCOPY-EVERY 3 YRS AGES 18-100 03/08/2018 03/08/2015 CKD LDL USE SMARTSET 33911 ( STAGE 3) OR 31970 (STAGE 4) 03/19/2018 03/19/2017, 09/27/2016, 02/18/2016, Additional history exists CKD GFR USE SMARTSET 33258 06/24/201812/22, 09/12/2017, 04/17/2017, Additional history exists BREAST CANCER SCREENING DISC USSION YEARLY AGES 40-75 12/09/2018 12/09/2017, 10/08/2016, 10/06/2015, Additional history exists CKD HGB USE SMARTSET 80546 12/22/201812/22, 09/12/2017, 04/17/2017, Additional history exists CKD PHOS USE SMARTSET 54156 12/22/201812/05, 09/12/2017, 03/19/2017, Additional history exists CKD URINE PROTEIN/CREATININE RATION OR URINE MICROALBUMIN YEARLY USE SMARTSET 55081 12/22/2018 12/22/2017, 03/19/2017, 02/09/2017, Additional history exists [...] Implants Not on fileas of this encounter Insurance Payer Benefit Plan / Group Subscriber ID Type Phone Address [facility] PREFERRED COMPLETE RX [id number] Medicare [phone] [place] [phone] as of this encounter
--- OUTSIDE RECORDS SUMMARY | 2023-06-07 08:28 | External Medical Summary | Summary of Care ---
Author Name Unknown Organization [place] [address] Phone Care Team Providers Care Raimann Machine Operator Name Role Phone Yariel Cardoza MD Primary Care Provide r Reason for Visit * Reason Comments ADVICE Encounter Details Date Type Department Care Team Description 02/24/2018 Telephone Internal Medicine [address] [id number] Yariel Cardoza MD [address] [place] [address] ADVICE Allergies Active Allergy Reactions Severity [...] OR WHEEZING. 360 mL 1 12/20/2017 Active atorvaSTATin (LIPITOR) 20 MG TabletIndications :Dyslipidemia, [...] mouth daily. 30 Tab 5 02/21/2018 Active amoxicillin-clavu lanate (AUGMENTIN) 875-125 MG per TabletIndications :Gastroesophageal reflux disease without esophagitis,Acute non-recurrent maxillary sinusitis Take 1 Tab by mouth 2 times a day for 10 days. 20 Tab 0 02/21/2018 03/03/20 18 Active atenolol (TENORMIN) 25 MG Tablet Take 1 Tab by mouth daily. 90 Tab 1 02/24/2018 Active atenolol (TENORMIN) 50 MG Tablet Take 0.5 Tabs by mouth daily. 90 Tab 1 06/06/2017 02/25/20 18 Discontinued atenolol (TENORMIN) 50 MG Tablet TAKE 1 TABLET BY MOUTH DAILY. 90 Tab 1 02/24/2018 02/25/20 18 Discontinued as of this encounter [...] (see actual BMI) 01/19/2016 COPD, severe ([facility]) 12/21/2015 Dyslipidemia, goal LDL below 100 016 [...] 08/22/201503/30 COPD, severity to be determined ([facility]) 07/20/2015 12/21/2015 ACQ ESOPHAG DIVERTICULUM 12/22/2004 015 [...] Telephone Encounter - Gracie Martino LPN - 02/24/2018 4:59 PM EDT Patient advised and voices understanding. * Telephone Encounter - Yariel Cardoza MD - 02/24/2018 4:56 PM EDT It should be 25 mg. Was sent to me for refill as 50 mg from the pharmacy. Sent corrected Rx to pharmacy so this won't happen again. She can take 1/2 of the 50 mg if she picked it up. * Telephone Encounter - Gracie Martino LPN - 02/24/2018 4:48 PM EDT Changed at last apt with Dr Viveros to 25 mg. Please advise? * Telephone Encounter - Sumit Briones OSA - 02/24/2018 4:19 PM EDT Patient calling- wants to clarify that she is to take 1 full tab of Atenolol, was changed to a halfa tab 02/21. Please contact patient to advise. in this encounter Plan of Treatment Upcoming Encounters Date Type Specialty Care Team Description 03/26/2018 Procedure Only Endoscopy Shakila Rocha, DO [address] [facility] [place] [address] [phone] 06/04/2018 Office Visit Dermatology Jennifer Sebastian PA-C [address] [facility] [place] [address] 07/28/2018 Office Visit Internal Medicine Yariel Cardoza MD [address] [place] [address] [place] [address] [phone] Health Maintenance Due Date Last Done Comments DTaP,Tdap,and Td Vaccines (1 - Tdap) 05/04/2004 05/03/2004 *ADVANCE DIRECTIVE NOT ON FILE 12/23/2015 *DEPRESSION SCREENING, LUI Lao FOR PTS 18 AND OVER 01/03/2018 COLONOSCOPY-EVERY 3 YRS AGES 18-100 03/08/2018 03/08/2015 CKD LDL USE SMARTSET 62028 ( STAGE 3) OR 00208 (STAGE 4) 03/19/2018 03/19/2017, 09/27/2016, 02/18/2016, Additional history exists CKD GFR USE SMARTSET 71719 06/24/201812/22, 09/12/2017, 04/17/2017, Additional history exists BREAST CANCER SCREENING DISC USSION YEARLY AGES 40-75 12/09/2018 12/09/2017, 10/08/2016, 10/06/2015, Additional history exists CKD HGB USE SMARTSET 71819 12/22/201812/22, 09/12/2017, 04/17/2017, Additional history exists CKD PHOS USE SMARTSET 09499 12/22/201812/05, 09/12/2017, 03/19/2017, Additional history exists CKD URINE PROTEIN/CREATININE RATION OR URINE MICROALBUMIN YEARLY USE SMARTSET 79832 12/22/2018 12/22/2017, 03/19/2017, 02/09/2017, Additional history exists [...]
--- OUTSIDE RECORDS SUMMARY | 2023-06-07 08:28 | External Medical Summary | Summary of Care ---
Author Name Unknown Organization [place] [address] Phone Care Team Providers Care Solution Advisor Name Role Phone Yariel Cardoza MD Primary Care Provide r Reason for Visit * Reason Comments COUGH Encounter Details Date Type Department Care Team Description 02/21/2018 Office Visit Internal Medicine [address] [address] Hillary White PA-C [address] [place] [address] [place] [address] Gastroesophageal reflux disease without esophagitis*;COPD, severe ([facility]);Acute non-recurrent maxillary sinusitis;Pulmonary hypertension ([facility]);Rhinitis, nonallergic Allergies Active Allergy Reactions Severity Noted Date [...] mouth daily. 90 Tab 1 06/06/2017 Active budesonide (PULMICORT) 0.5 MG/2ML nebulizer solution [...] 1 12/20/2017 Active atorvaSTATin (LIPITOR) 20 MG TabletIndications:D yslipidemia, [...] mouth daily. 30 Tab 5 02/21/2018 Active amoxicillin-clavula yoav (AUGMENTIN) 875-125 MG per TabletIndications:G astroesophageal reflux disease without esophagitis,Acute non-recurrent maxillary sinusitis Take 1 Tab by mouth 2 times a day for 10 days. 20 Tab 0 02/21/2018 03/03/2018 Active as of this encounter Active Problems [...] (see actual BMI) 01/19/2016 COPD, severe ([facility]) 12/21/2015 Dyslipidemia, goal LDL below 100 016 [...] 08/22/201503/30 COPD, severity to be determined ([facility]) 07/20/2015 12/21/2015 ACQ ESOPHAG DIVERTICULUM 12/22/2004 015 [...] Vital Sign Reading Time Taken Blood Pressure 124/72 02/21/2018 9:07 AM EDT Pulse 70 02/21/2018 9:07 AM EDT Temperature 36.9 C (98.5 F) 02/21/2018 9 :07 AM EDT Respiratory Rate 14 02/21/2018 9:07 AM EDT Oxygen Saturation - - Inhaled Oxygen Concentration - - Weight 96.2 kg (212 lb) 02/21/2018 9:07 AM EDT Height - - Body Mass Index 39.41 02/21/2018 9:07 AM EDT in this encounter Progress Notes * Hillary White PA-C - 02/21/2018 9:12 AM EDT Formatting of this note may be different from the original. Subjective Jayla Hayes is a 72 year old female. Chief Complaint Patient presents with COUGH Nursing Notes: ANAYA Jeffers 02/21/18 0913 Signed Productive cough x 1 month. Most of the time it is clear but it's very thick. Uses nebulizer a lot because she is wheezing. Also has a spot on her left calf. Concerned that it might be cellulitis? Noticed for about 2 weeks. When you push on it, it does hurt. Pt concerned that she might have allergies. Has an increase in sneezing and her eyes watering all the time. Saw ENT who recommended her to take an OTC medication. She cannot remember what it was though. Brief Clinical History Ms. Hayes is a 72 year old woman last seen in Internal Medicine 1 month ago (01-07-18). She has h/o COPD and heart failure, due for eval of Lumbar facet arthropathy (HCC). HPI: Jayla Hayes is a 72 year old female presenting to the office today for productive cough and allergies. She does have a small sore on her left lower extremity. She has had a cough for about 1 month. She is feeling increasingly SOB. She has been using her oxygen all throughout the day because she is feeling SOB especially with exertion. She typically only uses O2 at night or PRN. She has been using her nebulizer about 2-3 times per day as well. She is coughing up a lot of thick, sometimes yellow or clear mucus. She has a headache in the middle of her forehead as well. She did take Tylenol sinus yesterday which did help some. She is also getting a lot of phlegm out of her nose as well. She just saw her ENT doctor as well who she usually sees for her thyroid. She has been taking an allergy pill OTC as well at night time. ? Generic Zyrtec. She has been having some trouble with heart burn as well. She was previously on omeprazole. Results for orders placed or performed in visit on 12/24/17 CHEMISTRY-OUTSIDE Result Value Ref Range CREATININE-OUTSIDE LAB 0.72 0.60 - 1.20 MG/DL GFR ESTIMATED-OUTSIDE LAB 82.5 ML/MIN POTASSIUM-OUTSIDE LAB 4.0 3.5 - 5.1 MMOL/L GLUCOSE-OUTSIDE LAB 92 70 - 99 MG/DL HOURS FASTING TRIGLYCERIDES-OUTSIDE LAB CHOLESTEROL-OUTSIDE LAB HDL-OUTSIDE LAB CHOL/HDL RATIO-OUTSIDE LAB LDL (CALCULATED)-OUTSIDE LAB LDL (DIRECT MEASURE)-OUTSIDE LAB HEMOGLOBIN, [id number] LAB PHOSPHORUS-OUTSIDE LAB 3.1 2.5 - 4.9 MG/DL PTH-OUTSIDE LAB MICROALBUMIN RATIO-OUTSIDE LAB PROTEIN, UA-OUTSIDE LAB NEG NEG HEMOGLOBIN-OUTSIDE LAB 14.7 12.0 - 16.0 G/DL CHEMISTRY COMMENT-OUTSIDE LAB PMH: Patient Active Problem List Diagnosis Code [...] OF BREATH OR WHEEZING. 360 mL 1 amoxicillin-clavulanate (AUGMENTIN) 875-125 MG per Tablet Take 1 Tab by mouth 2 times a day for10 days. 20 Tab 0 Aspirin 81 MG Tablet Take 81 mg by mouth daily. atenolol (TENORMIN) 50 MG Tablet Take 0.5 Tabs by mouth daily. 90 Tab 1 atorvaSTATin (LIPITOR) 20 MG Tablet TAKE 1 TABLET BY MOUTH DAILY. 90 Tab 1 budesonide (PULMICORT) 0.5 MG/2ML nebulizer solution INHALE ONE UNIT DOSE VIAL VIA NEBULIZER TWO TIMES A DAY. 3 camphor-menthol (SARNA) 0.5-0.5 % lotion Apply topically to affected area as needed for Itching. 222 mL 3 furosemide (LASIX) 20 MG Tablet TAKE 1 TABLET BY MOUTH DAILY NEEDED (SWELLING). FOR FLUID ACCUMULATION OR WEIGHT GAIN 30 Tab 5 hydrochlorothiazide (HYDRODIURIL) 25 MG Tablet TAKE ONE TABLET BY MOUTH DAILY 90 Tab 1 KLOR-CON 10 10 MEQ TBCR TAKE ONE TABLET BY MOUTH DAILY 30 Tab 5 meclizine (ANTIVERT) 25 MG Tablet TAKE 1 TAB EVERY 6HRS NEEDED FOR DIZZINESS/VERTIGO 10 Tab 0 montelukast (SINGULAIR) 10 MG Tablet Take 1 Tab by mouth daily. 30 Tab 5 omeprazole (PRILOSEC) 20 MG CPDR Take 1 Cap by mouth daily. 1 hour before the first meal of theday 30 Cap 5 oxygen GAS Use 2 L/min(Oxygen) as directed continuous. 1 Each 0 polyethylene glycol 3350 (MIRALAX) 255 gram powder Take 17 g by mouth daily. Two-three times per week 255 g 0 triamcinolone acetonide (ARISTOCORT) 0.025 % ointment APPLY TOPICALLY TO AFFECTED AREA TWICE DAILY 0 VENTOLIN HFA 108 (90 Base) MCG/ACT inhaler INHALE 2 PUFFS BY MOUTH EVERY 4 HOURS NEEDED FOR WHEEZING. 1 Inhaler 5 VITAMIN D-3 1000 UNITS PO CAPS 1 [...] DIAGNOSTIC (RECTUM) 03/08/2015 adenomatous polyps, repeat 3 yrs/[facility] EGD, FLEXIBLE, DIAGNOSTIC 01/21/2015 [facility] ESOPHAGOSCOPY RIGID TRANSORAL HYPOPHARYNX ESOPHAGUS 2004 repair of Zenker's diverticulum LAPAROSCOPY; CHOLECYSTECTOMY 06/04/2016 laparoscopic cholecystectomy , mn [...] Relation Age of Onset Heart Disorder Father [place] age 55 Heart Disorder Mother CAD, 84 in '02 Arthritis Mother in fingers Diabetes Brother half brother Stroke Aunt (Unspecified) 80's Stroke Uncle (Unspecified) 60's Family Status Relation Status Father at age 55 [place], smoked Mother at age 96 unknown cause Daughter Alive Irina Son Alive Son Alive Brother Aunt (Unspecified) Uncle (Unspecified) Social History Social History Marital status: Spouse name: Holden Number of children: 3 Years of education: N/A 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 3 living children. Review of Systems All other systems reviewed and negative except as specified or as mentioned in HPI. Objective BP 124/72 | Pulse 70 | Temp (Src) 98.5 (Tympanic) | Resp 14 | Wt 212 lbs (96.163kg) | BMI 39.41 kg/m | BSA 2.04 m Physical Exam General: Well-Developed. Well nourished. Well appearing. No acute distress. HENT: Normocephalic. Atraumatic. Hearing normal. B/L TM intact, pearly barrett. No erythema/edema noted of B/L TM. No cerumen impaction. No drainage note. Tragus without tenderness. No nasal drainage. Posterior oropharynx without erythema, exudates, or post-nasal drip. Maxillary sinus tenderness to palpation. Eyes: EOMI. Sclera without erythema or icterus. No discharge. Pupils equal, round, reactive to light. Neck: No tracheal deviation. ROM intact. No stridor. Cardiovascular: RRR. Normal S1/S2 noted. No murmur, rub or gallop appreciated. Pulmonary: No respiratory distress. No accessory muscle use. Wheezing RUL. No crackles Abdominal: Bowel sounds heard throughout. No tenderness to palpation. No organomegally or masses noted. No distention. Musculoskeletal: ROM intact and appears normal. No gait disturbance. Mild nonpitting edema B/L ankles Neurologic: Alert. Oriented x 3. Appears stated age. CN 2-12 grossly intact. Skin: Warm and dry. No apparent rashes or ecchymoses. No jaundice or pallor noted. Small brownish spot on the left nobles. No erythema or drainage. Psych: Mood and affect normal. ASSESSMENT/PLAN: K21.9 Gastroesophageal reflux disease without esophagitis (primary encounter diagnosis) Plan: Medications: 1. Omeprazole 20 mg po cpdr Sig:Take 1 cap by mouth daily. 1 hour before the first meal of the day 2. Montelukast sodium 10 mg po tabs Sig:Take 1 tab by mouth daily. 3. Amoxicillin-pot clavulanate 875-125 mg po tabs Sig:Take 1 tab by mouth 2 times a day for 10 days. J44.9 Copd, severe (hcc) Plan: Medications: 1. Montelukast sodium 10 mg po tabs Sig:Take 1 tab by mouth daily. J01.00 Acute non-recurrent maxillary sinusitis Plan: Medications: 1. Montelukast sodium 10 mg po tabs Sig:Take 1 tab by mouth daily. 2. Amoxicillin-pot clavulanate 875-125 mg po tabs Sig:Take 1 tab by mouth 2 times a day for 10 days. I27.20 Pulmonary hypertension (hcc) J31.0 Rhinitis, nonallergic Follow up: Return in about 1 month (around 03/24/2018), or if symptoms worsen or fail to improve. Discussion: Continue generic Zyrtec as well. Continue nasal spray for likely allergic symptoms. Call if symptoms worsen or persist. Hillary White PA-C in this encounter Nursing Notes * Corbin Katrina J, [facility] - 02/21/2018 9:04 AM EDT Productive cough x 1 month. Most of the time it is clear but it's very thick. Uses nebulizer a lot because she is wheezing. Also has a spot on her left calf. Concerned that it might be cellulitis? Noticed for about 2 weeks. When you push on it, it does hurt. Pt concerned that she might have allergies. Has an increase in sneezing and her eyes watering all the time. Saw ENT who recommended her to take an OTC medication. She cannot remember what it was though. in this encounter Plan of Treatment Upcoming Encounters Date Type Specialty Care Team Description 02/21/2018 Office Visit Internal Medicine Hillary White PA-C [address] [place] [address] [place] [phone] Gastroesophageal reflux disease without esophagitis*;COPD, severe (HCC);Acute non-recurrent maxillary sinusitis;Pulmonary hypertension (HCC);Rhinitis, nonallergic 03/26/2018 Procedure Only Endoscopy Shakila Rocha, DO [address] [facility] [address] [phone] 06/04/2018 Office Visit Dermatology Jennifer Sebastian PA-C 16 [facility] [address] 07/28/2018 Office Visit Internal Medicine Yariel Cardoza MD [address] [place] [address] [place] [phone] Health Maintenance Due Date Last Done Comments DTaP,Tdap,and Td Vaccines (1 - Tdap) 05/04/2004 05/03/2004 *ADVANCE DIRECTIVE NOT ON FILE 12/23/2015 *DEPRESSION SCREENING, LUI Lao FOR PTS 18 AND OVER 01/03/2018 COLONOSCOPY-EVERY 3 YRS AGES 18-100 03/08/2018 03/08/2015 CKD LDL USE SMARTSET 46792 ( STAGE 3) [place] [address] (STAGE 4) 03/19/2018 03/19/2017, 09/27/2016, 02/18/2016, Additional history exists CKD GFR USE SMARTSET 58647 06/24/201812/22, 09/12/2017, 04/17/2017, Additional history exists BREAST CANCER SCREENING DISC USSION YEARLY AGES 40-75 12/09/2018 12/09/2017, 10/08/2016, 10/06/2015, Additional history exists CKD HGB USE SMARTSET 95851 12/22/201812/22, 09/12/2017, 04/17/2017, Additional history exists CKD PHOS USE SMARTSET 06774 12/22/201812/05, 09/12/2017, 03/19/2017, Additional history exists CKD URINE PROTEIN/CREATININE RATION OR URINE MICROALBUMIN YEARLY USE SMARTSET 53574 12/22/2018 12/22/2017, 03/19/2017, 02/09/2017, Additional history exists [...] Diagnosis Gastroesophageal reflux dise ase without esophagitis - Primary Esophageal reflux COPD, severe (HCC) Chronic airway obstruction, not elsewhere classified Acute non-recurrent maxillar y sinusitis Pulmonary hypertension (HCC) Other chronic pulmonary heart diseases Rhinitis, nonallergic Chronic rhinitis in this encounter"
--- OUTSIDE RECORDS SUMMARY | 2023-06-07 08:28 | External Medical Summary | Summary of Care ---
Author Name Unknown Organization [place] [address] Phone Care Team Providers Care Corporate Tax Preparer Name Role Phone Yariel Cardoza MD Primary Care Provide r Reason for Visit * Reason Comments ADVICE Encounter Details Date Type Department Care Team Description 02/21/2018 Telephone Internal Medicine [address] [id number] Yariel Cardoza MD [address] [place] [address] ADVICE Allergies Active Allergy Reactions Severity [...] determined ([facility]) 07/20/2015 12/21/2015 ACQ ESOPHAG DIVERTICULUM 12/22/2004 [...] encounter Miscellaneous Notes * Telephone Encounter - Krystal Church, VIRA - 02/21/2018 8:05 AM EDT Reason for patient's call: productive cough x 1 month, spot on leg Caller was transferred to [facility] at the dedicated phone nurse line. in this encounter Plan of Treatment Upcoming Encounters Date Type Specialty Care Team Description 03/26/2018 Procedure Only Endoscopy Shakila Rocha, DO 132 [facility] [place] [address] [phone] 06/04/2018 [facility] [address] 07/28/2018 Office Visit Internal Medicine Yariel Cardoza MD [address] [place] [address] [place] [address] Health Maintenance Due Date Last Done Comments DTaP,Tdap,and Td Vaccines (1 - Tdap) 05/04/2004 05/03/2004 *ADVANCE DIRECTIVE NOT ON FILE 12/23/2015 *DEPRESSION SCREENING, LUI Lao FOR PTS 18 AND OVER 01/03/2018 COLONOSCOPY-EVERY 3 YRS AGES 18-100 03/08/2018 03/08/2015 CKD LDL USE SMARTSET 63526 ( STAGE 3) [place] [address] (STAGE 4) 03/19/2018 03/19/2017, 09/27/2016, 02/18/2016, Additional history exists CKD GFR USE SMARTSET 13952 06/24/201812/22, 09/12/2017, 04/17/2017, Additional history exists BREAST CANCER SCREENING DISC USSION YEARLY AGES 40-75 12/09/2018 12/09/2017, 10/08/2016, 10/06/2015, Additional history exists CKD HGB USE SMARTSET 42759 12/22/201812/22, 09/12/2017, 04/17/2017, Additional history exists CKD PHOS USE SMARTSET 50805 12/22/201812/05, 09/12/2017, 03/19/2017, Additional history exists CKD URINE PROTEIN/CREATININE RATION OR URINE MICROALBUMIN YEARLY USE SMARTSET 20721 12/22/2018 12/22/2017, 03/19/2017, 02/09/2017, Additional history exists [...]
--- OUTSIDE RECORDS SUMMARY | 2023-06-07 08:28 | External Medical Summary | Summary of Care ---
Author Name Unknown Organization [place] [address] Phone Care Team Providers Care Linux Systems Analyst Name Role Phone Leanne Cardoza MD Primary Care Provide r Reason for Visit * Reason Comments eRx-Medication Refill Encounter Details Date Type Department Care Team Description 02/23/2018 Refill Internal Medicine [address] [phone] Noemi Cortez PA-C [address] [place] [address] Allergies Active Allergy Reactions Severity Noted [...] 0 02/21/2018 03/03/20 18 Active atenolol (TENORMIN) 50 MG Tablet TAKE 1 TABLET BY MOUTH DAILY. 90 Tab 1 02/24/2018 Active atenolol (TENORMIN) [...] actual BMI) 01/19/2016 COPD, severe ([facility]) 12/21/2015 Dyslipidemia, goal LDL below [...] COPD, severity to be determined ([facility]) 07/20/2015 12/21/2015 ACQ ESOPHAG DIVERTICULUM [...] Telephone Encounter - Leanne Cardoza MD - 02/24/2018 2:32 PM EDT Signed Prescriptions: Disp Refills atenolol (TENORMIN) 50 MG Tablet 90 Tab 1 Sig: TAKE 1 TABLET BY MOUTH DAILY. Authorizing Provider: LEANNE CARDOZA * Telephone Encounter - Corrina Mazariegos LPN - 02/24/2018 2:30 PM EDT Pending Prescriptions: Disp Refills atenolol (TENORMIN) 50 MG Tablet [Pharmac*90 Tab 1 Sig: TAKE 1 TABLET BY MOUTH DAILY. * Telephone Encounter - Corrina Mazariegos KRISTIAN Pro - 02/24/2018 2:30 PM EDT Formatting of this note may be different from the original. Pending Prescriptions: Disp Refills atenolol (TENORMIN) 50 MG Tablet [Pharmac*90 Tab 1 Sig: TAKE 1 TABLET BY MOUTH DAILY. Last Office Visit: 02/21/2018 Next Office Visit: 07/28/2018 Scheduled Provider(s): Leanne Cardoza MD Last date the medication was ordered: 06/06/17-reported by pt Patient Active Problem List Diagnosis Code Slow [...] Description 03/26/2018 Procedure Only Endoscopy Shakila Rocha, 132 [facility] [place] [address] [phone] 06/04/2018 Office Visit [facility]atology [facility] [address] [phone] 07/28/2018 Office Visit Internal Medicine Leanne Cardoza MD [address] [place] [address] [place] [address] Health Maintenance Due Date Last Done Comments DTaP,Tdap,and Td Vaccines (1 - Tdap) 05/04/2004 05/03/2004 *ADVANCE DIRECTIVE NOT ON FILE 12/23/2015 *DEPRESSION SCREENING, LUI Lao FOR PTS 18 AND OVER 01/03/2018 COLONOSCOPY-EVERY 3 YRS AGES 18-100 03/08/2018 03/08/2015 CKD LDL USE SMARTSET 46061 ( STAGE 3) [place] 7[address] (STAGE 4) 03/19/2018 03/19/2017, 09/27/2016, 02/18/2016, Additional history exists CKD GFR USE SMARTSET 27211 06/24/201812/22, 09/12/2017, 04/17/2017, Additional history exists BREAST CANCER SCREENING DISC USSION YEARLY AGES 40-75 12/09/2018 12/09/2017, 10/08/2016, 10/06/2015, Additional history exists CKD HGB USE SMARTSET 96202 12/22/201812/22, 09/12/2017, 04/17/2017, Additional history exists CKD PHOS USE SMARTSET 39553 12/22/201812/05, 09/12/2017, 03/19/2017, Additional history exists CKD URINE PROTEIN/CREATININE RATION OR URINE MICROALBUMIN YEARLY USE SMARTSET 92667 12/22/2018 12/22/2017, 03/19/2017, 02/09/2017, Additional history exists [...]
--- OUTSIDE RECORDS SUMMARY | 2023-06-07 08:28 | External Medical Summary | Summary of Care ---
Author Name Unknown Organization [place] [address] Phone Care Team Providers Care Traffic Analysis Technician Name Role Phone Yariel Cardoza MD Primary Care Provide r Encounter Details Date Type Department Care Team Description 03/14/2018 Orders Only Gastroenterology, [facility] [address] [facility] [place] [address] Gianna Stevenson CRNP 132 [facility] [place] [address] History of colonic polyps* [...] MOUTH DAILY 30 Tab 5 03/07/2018 Active as of this encounter Active Problems [...] omorbidity (see actual BMI) 01/19/2016 COPD, severe ([facility]) 12/21/2015 Dyslipidemia, goal LDL below 100 [...] osteoarthritis 08/22/201503/30 COPD, severity to be determined ([facility]) 07/20/2015 12/21/2015 ACQ ESOPHAG DIVERTICULUM 12/22/2004 [...] Procedure Only Endoscopy Shakila Rocha, DO [facility] [address] [phone] 06/04/2018 Office Visit Dermatology Jennifer Sebastian PA-C 16 [place] [address] 07/28/2018 Office Visit Internal Medicine Yariel Cardoza MD [address] [place] [address] [place] [address] Scheduled Tests Name Priority Associated Diagnoses Order S chedule COLONOSCOPY, DIAGNOSTIC (RECTUM) Routine History of colonic polyps Ordered: 03/14/2018 Health Maintenance Due Date Last Done Comments DTaP,Tdap,and Td Vaccines (1 - Tdap) 05/04/2004 05/03/2004 *ADVANCE DIRECTIVE NOT ON FILE 12/23/2015 *DEPRESSION SCREENING, LUI Lao FOR PTS 18 AND OVER 01/03/2018 COLONOSCOPY-EVERY 3 YRS AGES 18-100 03/08/2018 03/08/2015 CKD LDL USE SMARTSET 48903 ( STAGE 3) [place] 78[address] (STAGE 4) 03/19/2018 03/19/2017, 09/27/2016, 02/18/2016, Additional history exists CKD GFR USE SMARTSET 20317 06/24/201812/22, 09/12/2017, 04/17/2017, Additional history exists BREAST CANCER SCREENING DISC USSION YEARLY AGES 40-75 12/09/2018 12/09/2017, 10/08/2016, 10/06/2015, Additional history exists CKD HGB USE SMARTSET 98275 12/22/201812/22, 09/12/2017, 04/17/2017, Additional history exists CKD PHOS USE SMARTSET 45958 12/22/201812/05, 09/12/2017, 03/19/2017, Additional history exists CKD URINE PROTEIN/CREATININE RATION OR URINE MICROALBUMIN YEARLY USE SMARTSET 08115 12/22/2018 12/22/2017, 03/19/2017, 02/09/2017, Additional history exists [...] fileas of this encounter Visit Diagnoses Diagnosis History of colonic polyps - Primary Personal history of colonic polyps in this encounter
--- OUTSIDE RECORDS SUMMARY | 2023-06-07 08:28 | External Medical Summary | Summary of Care ---
Author Name Unknown Organization [place] [address] Phone Care Team Providers Care Bell Hole Digger Name Role Phone Yariel Cardoza MD Primary Care Provide r Encounter Details Date Type Department Care Team Description 01/24/2018 Scan Encounter Unspecified Department <No scans attached> [...] MOUTH DAILY 90 Tab 1 01/17/2018 Active as of this encounter Active Problems [...] be determined ([facility]) 07/20/2015 12/21/2015 ACQ ESOPHAG DIVERTICULUM 12/22/2004 [...] Shakila Rocha, DO [address] [place] [address] [phone] 06/04/2018 Office Visit Dermatology Jennifer Sebastian PA-C [address] [place] [address] [phone] 07/28/2018 Office Visit Internal Medicine Yariel Cardoza MD [address] [place] [address] [place] [address] Health Maintenance Due Date Last Done Comments DTaP,Tdap,and Td Vaccines (1 - Tdap) 05/04/2004 05/03/2004 *ADVANCE DIRECTIVE NOT ON FILE 01/08/2015 *DEPRESSION SCREENING, LUI Lao FOR PTS 18 AND OVER 01/03/2018 COLONOSCOPY-EVERY 3 YRS AGES 18-100 03/08/2018 03/08/2015 CKD LDL USE SMARTSET 45447 ( STAGE 3) [place] 63574 (STAGE 4) 03/19/2018 03/19/2017, 09/27/2016, 02/18/2016, Additional history exists CKD GFR USE SMARTSET 80378 06/24/201812/22, 09/12/2017, 04/17/2017, Additional history exists BREAST CANCER SCREENING DISC USSION YEARLY AGES 40-75 12/09/2018 12/09/2017, 10/08/2016, 10/06/2015, Additional history exists CKD HGB USE SMARTSET 51511 12/22/201812/22, 09/12/2017, 04/17/2017, Additional history exists CKD PHOS USE SMARTSET 58987 12/22/201812/05, 09/12/2017, 03/19/2017, Additional history exists CKD URINE PROTEIN/CREATININE RATION OR URINE MICROALBUMIN YEARLY USE SMARTSET 21019 12/22/2018 12/22/2017, 03/19/2017, 02/09/2017, Additional history exists DIABETES SCREEN EVERY 3 YRS- AGE 45 AND ABOVE 12/22/2020 12/22/2017, 09/12/2017, 04/17/2017, Additional history exists DXA-SCREENING EVERY 7 YRS-US E SMARTSET# 3238 TO ORDER 08/17/2022 08/17/2015 PNEUMOCOCCAL ADULT 65 YRS AND OVER Completed 2016, 09/21/2015 Influenza Vaccine (FLU shot) Completed , 07/21/2016, 07/20/2015, Additional history exists as of this encounter Implants Not on fileas of this encounter Insurance Payer Benefit Plan / Group Subscriber ID Type Phone Address [facility] PREFERRED COMPLETE RX [id number] Medicare [phone] [facility] [place] [address] as of this encounter
--- OUTSIDE RECORDS SUMMARY | 2023-06-07 08:28 | External Medical Summary | Summary of Care ---
Author Name Unknown Organization [place] [address] Phone Care Team Providers Care Fast Food Cashier Name Role Phone Yariel Cardoza MD Primary Care Provide r Reason for Visit * Reason Comments eRx-Medication Refill Encounter Details Date Type Department Care Team Description 01/17/2018 Refill Internal Medicine [address] [phone] Yariel Cardoza MD [address] [place] [address] [place] [address] Dyslipidemia, goal LDL below 100 Allergies [...] Wheezing. 3 Inhaler 1 01/07/2017 Active oxygen GASIndications:Hy poxia Use 2 L/min(Oxygen) [...] MOUTH DAILY 90 Tab 1 01/17/2018 Active atorvaSTATin (LIPITOR) 20 MG TabletIndications :Dyslipidemia, goal LDL below 100 Take 1 Tab by mouth daily. 90 Tab 1 07/08/2017 01/18/20 18 Discontinued hydrochlorothiazi de (HYDRODIURIL) 25 MG Tablet TAKE ONE TABLET BY MOUTH DAILY 90 Tab 1 07/12/2017 01/18/20 18 Discontinued as of this encounter Active [...] (see actual BMI) 01/19/2016 COPD, severe ([facility]) 12/21/2015 Dyslipidemia, goal LDL below 100 [...] 08/22/201503/30 COPD, severity to be determined ([facility]) 07/20/2015 12/21/2015 ACQ ESOPHAG DIVERTICULUM 12/22/2004 [...] Miscellaneous Notes * Telephone Encounter - Corrina Mazariegos LPN - 01/17/2018 8:33 AM EDT Pending Prescriptions: Disp Refills atorvaSTATin (LIPITOR) 20 MG Tablet [Phar*90 Tab 1 Sig: TAKE 1 TABLET BY MOUTH DAILY. hydrochlorothiazide (HYDRODIURIL) 25 MG T*90 Tab 1 Sig: TAKE ONE TABLET BY MOUTH DAILY * Telephone Encounter - Corrina Mazariegos LPN - 01/17/2018 8:32 AM EDT Formatting of this note may be different from the original. Pending Prescriptions: Disp Refills atorvaSTATin (LIPITOR) 20 MG Tablet [Phar*90 Tab 1 Sig: TAKE 1 TABLET BY MOUTH DAILY. hydrochlorothiazide (HYDRODIURIL) 25 MG T*90 Tab 1 Sig: TAKE ONE TABLET BY MOUTH DAILY Last Office Visit: 01/07/2018 Next Office Visit: 07/28/2018 Scheduled Provider(s): Yariel Cardoza MD If no future appointments scheduled, and last appointment is greater than a year ago, please schedule patient for a follow-up appointment Last date the medication was ordered: 07/12/17 Patient Phone Numbers Labs: Lab Results Component [...] Rocha, DO [address] [place] [address] 06/04/2018 Office Visit Dermatology Jennifer Sebastian PA-C 16 [facility] [place] [address] 07/28/2018 Office Visit Internal Medicine Yariel Cardoza MD [address] [place] [address] [place] [address] Health Maintenance Due Date Last Done Comments DTaP,Tdap,and Td Vaccines (1 - Tdap) 05/04/2004 05/03/2004 *ADVANCE DIRECTIVE NOT ON FILE 01/08/2015 *DEPRESSION SCREENING, WEIUA Tashia FOR PTS 18 AND OVER 01/03/2018 COLONOSCOPY-EVERY 3 YRS AGES 18-100 03/08/2018 03/08/2015 CKD LDL USE SMARTSET 22868 ( STAGE 3) [place] [address] (STAGE 4) 03/19/2018 03/19/2017, 09/27/2016, 02/18/2016, Additional history exists CKD GFR USE SMARTSET 71663 06/24/201812/22, 09/12/2017, 04/17/2017, Additional history exists BREAST CANCER SCREENING DISC USSION YEARLY AGES 40-75 12/09/2018 12/09/2017, 10/08/2016, 10/06/2015, Additional history exists CKD HGB USE SMARTSET 60622 12/22/201812/22, 09/12/2017, 04/17/2017, Additional history exists CKD PHOS USE SMARTSET 20226 12/22/201812/05, 09/12/2017, 03/19/2017, Additional history exists CKD URINE PROTEIN/CREATININE RATION OR URINE MICROALBUMIN YEARLY USE SMARTSET 24106 12/22/2018 12/22/2017, 03/19/2017, 02/09/2017, Additional history exists [...] Other and unspecified hyperlipidemia in this encounter Insurance Payer Benefit Plan / Group Subscriber ID Type Phone Address [facility] [id number] Medicare [phone] [place] [phone] as of this encounter
--- OUTSIDE RECORDS SUMMARY | 2023-06-07 08:28 | External Medical Summary | Summary of Care ---
Author Name Unknown Organization [place] [address] Phone Care Team Providers Care Apparel Cutter Name Role Phone Yariel Cardoza MD Primary Care Provide r Encounter Details Date Type Department Care Team Description 12/24/2017 Orders Only Internal Medicine [address] [address] Yariel Cardoza MD [address] [place] [address] [place] [address] Allergies Active Allergy Reactions Severity Noted [...] Encounters Date Type Specialty Care Team Description 12/31/2017 Office Visit Internal Medicine Yariel Cardoza MD [address] [place] [address] [place] [address] [phone] 01/09/2018 Office Visit Internal Medicine Yariel Cardoza MD [address] [place] [address] [place] [address] [phone] Pending Results Name Priority Associated Diagnoses Date/Ti me CHEMISTRY-OUTSIDE Routine 12/22/2017 12:00 AM EDT Health Maintenance Due Date Last Done Comments DTaP,Tdap,and Td Vaccines (1 - Tdap) 05/04/2004 05/03/2004 *ADVANCE DIRECTIVE NOT ON FILE 01/08/2015 COLONOSCOPY-EVERY 3 YRS AGES 18-100 03/08/2018 03/08/2015 CKD GFR USE SMARTSET 24229 03/13/201809/12, 04/17/2017, 03/19/2017, Additional history exists CKD LDL USE SMARTSET 24064 ( STAGE 3) [place] [address] (STAGE 4) 03/19/2018 03/19/2017, 09/27/2016, 02/18/2016, Additional history exists CKD URINE PROTEIN/CREATININE RATION OR URINE MICROALBUMIN YEARLY USE SMARTSET 56571 03/19/2018 03/19/2017, 02/09/2017, 02/18/2016 CKD HGB USE SMARTSET 55607 09/12/201809/12, 04/17/2017, 03/19/2017, Additional history exists CKD PHOS USE SMARTSET 27080 09/12/2018 1204/2017, 03/19/2017, 02/18/2016 BREAST CANCER SCREENING DISC USSION YEARLY AGES 40-75 12/09/2018 12/09/2017, 10/08/2016, 10/06/2015, Additional history exists DIABETES SCREEN EVERY 3 YRS- AGE 45 AND ABOVE 09/12/2020 09/12/2017, 04/17/2017, 03/19/2017, Additional history exists DXA-SCREENING EVERY 7 YRS-US E SMARTSET# 3348 TO ORDER 08/17/2022 08/17/2015 PNEUMOCOCCAL ADULT 65 YRS AND OVER Completed 2016, 09/21/2015 Influenza Vaccine (FLU shot) Completed , 07/21/2016, 07/20/2015, Additional history exists as of this encounter Implants Not on fileas of this encounter Insurance Payer Benefit Plan / Group Subscriber ID Type Phone Address [facility] PREFERRED COMPLETE RX [id number] Medicare [phone] [place] [phone] as of this encounter
--- OUTSIDE RECORDS SUMMARY | 2023-06-07 08:28 | External Medical Summary | Summary of Care ---
Author Name Unknown Organization [place] [address] Phone Care Team Providers Care Valuation Manager Name Role Phone Yariel Cardoza MD Primary Care Provide r Encounter Details Date Type Department Care Team Description 12/22/2017 Scan Encounter Unspecified Department <No scans attached> [...] Visit Internal Medicine Yariel Cardoza MD [address] [place] [address] [place] [address] [phone] 01/09/2018 Office Visit Internal Medicine Yariel Cardoza MD [address] [place] [address] [place] [address] [phone] Health Maintenance Due Date Last Done Comments DTaP,Tdap,and Td Vaccines (1 - Tdap) 05/04/2004 05/03/2004 *ADVANCE DIRECTIVE NOT ON FILE 01/08/2015 COLONOSCOPY-EVERY 3 YRS AGES 18-100 03/08/2018 03/08/2015 CKD GFR USE SMARTSET 82068 03/13/201809/12, 04/17/2017, 03/19/2017, Additional history exists CKD LDL USE SMARTSET 69358 ( STAGE 3) [place] [address] (STAGE 4) 03/19/2018 03/19/2017, 09/27/2016, 02/18/2016, Additional history exists CKD URINE PROTEIN/CREATININE RATION OR URINE MICROALBUMIN YEARLY USE SMARTSET 05934 03/19/2018 03/19/2017, 02/09/2017, 02/18/2016 CKD HGB USE SMARTSET 59503 09/12/201809/12, 04/17/2017, 03/19/2017, Additional history exists CKD PHOS USE SMARTSET 12397 09/12/201804/2017, 03/19/2017, 02/18/2016 BREAST CANCER SCREENING DISC USSION [...] / Group Subscriber ID Type Phone Address [facility] PREFERRED COMPLETE RX [id number] Medicare [phone] [place] [address] as of this encounter
--- OUTSIDE RECORDS SUMMARY | 2023-06-07 08:28 | External Medical Summary | Summary of Care ---
Author Name Unknown Organization [place] [address] Phone Care Team Providers Care Utilization Management Rn Name Role Phone Yariel Cardoza MD Primary Care Provide r Reason for Referral * Ancillary Services (Within 10 days (routine)) Status Reason Specialty Diagnoses / Procedures Referred By Contact Referred To Contact Authorized Ancillary Services Required Gastroenterology Diagnoses Screen for colon cancer Josie Ryan PA-C [address] [place] [address] [place] [address] * Evaluate & Treat - Unlimited Visits (Within 10 days (routine)) Status Reason Specialty Diagnoses / Procedures Referred By Contact Referred To Contact Authorized Specialty Services Required Dermatology Diagnoses Skin tag Josie Ryan PA-C [address] [place] [address] [place] [id number] Reason for Visit * Reason Comments RECHECK EMERGENCY DEPARTMENT FOLLOW-UP Encounter Details Date Type Department Care Team Description 01/07/2018 Office Visit Internal Medicine [address] [place] [address] Josie Ryan PA-C [address] [place] [address] [place] [address] [phone] Skin tag*;Risk and functional assessment;COPD, severe (HCC);Pulmonary hypertension;Irritable bowel syndrome with constipation;Gastroeso phageal reflux disease without esophagitis;Dyslipidem ia, goal LDL below 100;HTN, goal below 140/90;Multiple thyroid nodules;Screen for colon cancer Allergies Active Allergy Reactions Severity Noted Date [...] Vital Sign Reading Time Taken Blood Pressure 138/68 01/07/2018 2:07 PM EDT Pulse 72 01/07/2018 2:07 PM EDT Temperature 36.9 C (98.5 F) 01/07/2018 2 :07 PM EDT Respiratory Rate 20 01/07/2018 2:07 PM EDT Oxygen Saturation - - Inhaled Oxygen Concentration - - Weight 97.5 kg (215 lb) 01/07/2018 2:07 PM EDT Height - - Body Mass Index 39.97 01/07/2018 2:07 PM EDT in this encounter Instructions * Patient Instructions - Harmony Sarkar LPN - 01/07/2018 2:08 PM EDT Patient Instructions - Fall Prevention Remember to take your current medications as prescribed. In order to prevent falls, you are encouraged to: Exercise Utilize assistive/adaptive devices Avoid multifocal lenses when walking Avoid hazards in home Maintain a regular toileting schedule Any questions please contact our office. Preventing Falls in the Home As you get older, falls are more [...] pathway between the bedroom and the bathroom tritrue Patient Education Copyright 2008 - 2010 [facility] except where otherwise noted Preventing Falls: Exercises to Improve Balance, Flexibility, Strength, and Staying Power Certain types of exercises may help make [...] 10 times. Repeat this throughout the day. tritrue Patient Education Copyright 2009 - 2010 [facility] except where otherwise noted. Preventing Falls: Moving Safely Using a Cane or Walker Keep the cane away from your feet [...] that mean climbing, even on a stepstool. [employer] Patient Education Copyright 2008 - 2010 [employer] except where otherwise noted. Urinary Incontinence Plan of Care Documentation: Current medications reconciled. Patient encouraged to: Practice [...] Wear support stockings (TEDs)if you have edema Harmony Sarkar LPN 01/07/2018 Kegel Exercises Kegel exercises dont require special [...] even more effective. [employer] Patient Education Copyright 2009 - 2010 [employer] except where otherwise noted. Here are some helpful tips for your urinary incontinence: Practice kegal exercises Use the restroom every 2 hours [...] please feel free to contact our office. in this encounter Progress Notes * Josie Ryan PA-C - 01/07/2018 2:15 PM EDT Formatting of this note may be different from the original. Nursing Notes: Harmony Sarkar LPN 01/07/18 1413 Signed Pt is here for 3 month check up, and ER follow up , pt went to ER for right leg and hip and could not lift the leg, they did x-ray and CT and all came back neg Pt was asked if she was on a statin and they advised she menstion this to the doctor , pt said eversince she has been on the statin she has had problems with that leg Pt with PMH of COPD, dyslipidemia, reflux, HTN, lumbar spinal stenosis, obesity. Pt here today for recheck and ER FU. Pt states that she went to ER with severe right leg pain. Pt states that the painstarted in her groin and radiated into inner thigh. Pt has had this pain for years, just getting worse. They did CT, xrays, and US - all normal. Pt states that she has mild pain at rest but worse with movements. Pt wonders if it is her statin. Pt denies pain in her other leg. She does gets some pain in her shoulders. She states that she has hx of fibromyalgia. She used to be on amitriptyline but this was stopped years ago. Pt thinks she has had this pain since she started on the atorvastatin, 2years ago. Her cholesterol is great. Pt also has skin tags that get irritated from clothing. She would like to see derm to have them removed. Review of patient's allergies indicates: Allergen Reactions Adhesive Tape Sensitive to Aleve [Naproxen] Hives Ivp Dye Hives Latex Other (Please comment) Contact rash Motrin [Ibuprofen] Rash Past Medical History: Diagnosis Date Allergic rhinitis [...] osteoarthritis of right knee 02/18/2017 Pulmonary hypertension 05/07/2017 Reflux esophagitis 01/28/2002 Slow transit constipation 07/20/2015 Thyroid nodule 09/05/2016 Tubular adenoma of colon 07/20/2015 Urge incontinence 05/03/2004 Urinary, incontinence, stress female 02/21/2016 Social History Social History Marital status: Spouse [...] the area. 3 living children. O:Blood pressure 138/68, pulse 72, temperature 36.9 C (98.5 F), temperature source Tympanic, resp. rate 20, weight 97.5 kg (215 lb). GENERAL: alert, healthy, no distress, well nourished and well developed NECK: supple, no adenopathy, no bruits, thyroid normal size, non-tender, without nodularity EYES: Conjunctiva are pink and non-injected, sclera clear HEART: regular rate & rhythm, no murmurs and no gallops LUNGS: chest symmetric with normal AP diameter, no chest deformities noted, no chest wall tenderness, lungs clear to auscultation ABDOMEN: abdomen soft, non-tender, normal bowel sounds and no masses or organomegaly EXTREMITIES: RLE - no edema, no erythema, no ecchymosis. No calf tenderness. Mild tenderness at inner thigh. Pain with ROM at hip. SKIN: skin tags at cervical collar A:L91.8 Skin tag (primary encounter diagnosis) Plan: Dermatology referral op Z13.9 Risk and functional assessment Plan: Pat scrn for fall risk Pres or abs of urin incont as Urin incont plan of care doc J44.9 Copd, severe (hcc) I27.20 Pulmonary hypertension K58.1 Irritable bowel syndrome with constipation K21.9 Gastroesophageal reflux disease without esophagitis E78.5 Dyslipidemia, goal ldl below 100 I10 Htn, goal below 140/90 E04.2 Multiple thyroid nodules I'm not convinced that this leg pain is from the atorvastatin. Pt really feels this is the issue. Stop atorvastatin for the next 2 weeks and see how things go. If this persists, start back on atorvastatin and will refer to PT. Could be coming from back? Ref in for derm. Any questions/problems, please call. Continue current meds. Follow up: Return if symptoms worsen or fail to improve. Josie Ryan PA-C * Harmony Sarkar LPN - 01/07/2018 2:08 PM EDT Urinary Incontinence Plan of Care Documentation: Current medications reconciled. Patient encouraged to: Practice [...] Wear support stockings (TEDs)if you have edema Harmony Sarkar LPN 01/07/2018 in this encounter Nursing Notes * Harmony Sarkar LPN - 01/07/2018 2:09 PM EDT Pt is here for 3 month check up, and ER follow up , pt went to ER for right leg and hip and could not lift the leg, they did x-ray and CT and all came back neg Pt was asked if she was on a statin and they advised she menstion this to the doctor , pt said eversince she has been on the statin she has had problems with that leg in this encounter Plan of Treatment Upcoming Encounters Date Type Specialty Care Team Description 06/04/2018 Office Visit Dermatology Jennifer Sebastian PA-C [address] [place] [address] Scheduled Referrals Name Priority Associated Diagnoses Order S chedule DERMATOLOGY REFERRAL OP Within 10 days (routine) Skin tag Ordered: 01/07/2018 COLONOSCOPY, GI REFERRAL OP Within 10 days (routine) Screen for colon cancer Ordered: 01/07/2018 Health Maintenance Due Date Last Done Comments DTaP,Tdap,and Td Vaccines (1 - Tdap) 05/04/2004 05/03/2004 *ADVANCE DIRECTIVE NOT ON FILE 01/08/2015 *DEPRESSION SCREENING, LUI Lao FOR PTS 18 AND OVER 01/03/2018 COLONOSCOPY-EVERY 3 YRS AGES 18-100 03/08/2018 03/08/2015 CKD LDL USE SMARTSET 41479 ( STAGE 3) [place] [address] (STAGE 4) 03/19/2018 03/19/2017, 09/27/2016, 02/18/2016, Additional history exists CKD GFR USE SMARTSET 40975 06/24/201812/22, 09/12/2017, 04/17/2017, Additional history exists BREAST CANCER SCREENING DISC USSION YEARLY AGES 40-75 12/09/2018 12/09/2017, 10/08/2016, 10/06/2015, Additional history exists CKD HGB USE SMARTSET 84154 12/22/201812/22, 09/12/2017, 04/17/2017, Additional history exists CKD PHOS USE SMARTSET 18285 12/22/201812/05, 09/12/2017, 03/19/2017, Additional history exists CKD URINE PROTEIN/CREATININE RATION OR URINE MICROALBUMIN YEARLY USE SMARTSET 23613 12/22/2018 12/22/2017, 03/19/2017, 02/09/2017, Additional history exists [...] fileas of this encounter Visit Diagnoses Diagnosis Skin tag - Primary Unspecified hypertrophic and atrophic condition of skin Risk and functional assessme nt Screening for unspecified condition COPD, severe (HCC) Chronic airway obstruction, not elsewhere classified Pulmonary hypertension Other chronic pulmonary heart diseases Irritable bowel syndrome wit h constipation Irritable bowel syndrome Gastroesophageal reflux dise ase without esophagitis Esophageal reflux Dyslipidemia, goal LDL below 100 Other and unspecified hyperlipidemia HTN, goal below 140/90 Unspecified essential hypertension Multiple thyroid nodules Nontoxic multinodular goiter Screen for colon cancer Special screening for malignant neoplasms, colon in this encounter Insurance Payer Benefit Plan / Group Subscriber ID Type Phone Address [facility] PREFERRED COMPLETE RX [id number] Medicare [phone] [place] [address] as of this encounter
--- OUTSIDE RECORDS SUMMARY | 2023-06-07 08:28 | External Medical Summary | Summary of Care ---
Author Name Unknown Organization [place] [address] Phone Care Team Providers Care Facility Operations Manager Name Role Phone Leanne Cardoza MD Primary Care Provide r Reason for Visit * Reason Comments eRx-Medication Refill Encounter Details Date Type Department Care Team Description 02/09/2018 Refill Internal Medicine [address] [address] Leanne Cardoza MD [address] [place] [address] [place] [address] Allergies Active Allergy Reactions Severity Noted [...] FOR WHEEZING. 1 Inhaler 5 02/10/2018 Active albuterol (VENTOLIN HFA) 108 (90 BASE) MCG/ACT inhaler Inhale 2 Puffs by mouth every 4 hours as needed for Wheezing. 3 Inhaler 1 01/07/2017 02/10/20 18 Discontinued as of this encounter Active [...] Telephone Encounter - Leanne Cardoza MD - 02/10/2018 2:26 PM EDT Signed Prescriptions: Disp Refills VENTOLIN HFA 108 (90 Base) MCG/ACT inhaler 1 Inha*5 Sig: INHALE 2 PUFFS BY MOUTH EVERY 4 HOURS NEEDED FOR WHEEZING. Authorizing Provider: LEANNE CARDOZA * Telephone Encounter - Geneva Mercedes LPN - 02/10/2018 2:08 PM EDT Pending Prescriptions: Disp Refills VENTOLIN HFA 108 (90 Base) MCG/ACT inhale*1 Inha*5 Sig: INHALE 2 PUFFS BY MOUTH EVERY 4 HOURS NEEDED FOR WHEEZING. * Telephone Encounter - Geneva Mercedes LPN - 02/10/2018 2:07 PM EDT Pending Prescriptions: Disp Refills VENTOLIN HFA 108 (90 Base) MCG/ACT inhale*1 Inh* 5 Sig: INHALE 2 PUFFS BY MOUTH EVERY 4 HOURS NEEDED FOR WHEEZING. Last Office Visit: 01/07/2018 Next Office Visit: 07/28/2018 Scheduled Provider(s): Leanne Cardoza MD Lr 4-3-17 in this encounter Plan of Treatment Upcoming Encounters Date Type Specialty Care Team Description 03/26/2018 Procedure Only Endoscopy Shakila Rocha, DO [address] [place] [address] [phone] 06/04/2018 Office Visit Dermatology Jennifer Sebastian PA-C [address] [place] [address] 07/28/2018 Office Visit Internal Medicine Leanne Cardoza MD [address] [place] [address] [place] [address] [phone] Health Maintenance Due Date Last Done Comments DTaP,Tdap,and Td Vaccines (1 - Tdap) 05/04/2004 05/03/2004 *ADVANCE DIRECTIVE NOT ON FILE 12/23/2015 *DEPRESSION SCREENING, ANNUA L FOR PTS 18 AND OVER 01/03/2018 COLONOSCOPY-EVERY 3 YRS AGES 18-100 03/08/2018 03/08/2015 CKD LDL USE SMARTSET 93125 ( STAGE 3) [place] [address] (STAGE 4) 03/19/2018 03/19/2017, 09/27/2016, 02/18/2016, Additional history exists CKD GFR USE SMARTSET 34676 06/24/201812/22, 09/12/2017, 04/17/2017, Additional history exists BREAST CANCER SCREENING DISC USSION YEARLY AGES 40-75 12/09/2018 12/09/2017, 10/08/2016, 10/06/2015, Additional history exists CKD HGB USE SMARTSET 42335 12/22/201812/22, 09/12/2017, 04/17/2017, Additional history exists CKD PHOS USE SMARTSET 50658 12/22/201812/05, 09/12/2017, 03/19/2017, Additional history exists CKD URINE PROTEIN/CREATININE RATION OR URINE MICROALBUMIN YEARLY USE SMARTSET 19871 12/22/2018 12/22/2017, 03/19/2017, 02/09/2017, Additional history exists [...]
--- OUTSIDE RECORDS SUMMARY | 2023-06-07 08:28 | External Medical Summary | Summary of Care ---
Author Name Unknown Organization [place] [address] Phone Care Team Providers Care Coke Drawer Hand Name Role Phone Leanne Cardoza MD Primary Care Provide r Reason for Visit * Reason Comments eRx-Medication Refill Encounter Details Date Type Department Care Team Description 03/07/2018 Refill Internal Medicine [address] [id number] Leanne Cardoza MD [address] [place] [address] [place] [address] Allergies Active Allergy Reactions Severity Noted [...] MOUTH DAILY 30 Tab 5 03/07/2018 Active KLOR-CON 10 10 MEQ TBCR TAKE [...] omorbidity (see actual BMI) 01/19/2016 COPD, severe ([facility]) 12/21/2015 Dyslipidemia, goal LDL below 100 [...] osteoarthritis 08/22/201503/30 COPD, severity to be determined ([facility]) 07/20/2015 12/21/2015 ACQ ESOPHAG DIVERTICULUM 12/22/2004 [...] Telephone Encounter - Leanne Cardoza MD - 03/07/2018 9:34 AM EDT Signed Prescriptions: Disp Refills KLOR-CON 10 10 MEQ TBCR 30 Tab 5 Sig: TAKE ONE TABLET BY MOUTH DAILY Authorizing Provider: LEANNE CARDOZA * Telephone Encounter - Geneva Mercedes LPN - 03/07/2018 9:05 AM EDT Pending Prescriptions: Disp Refills KLOR-CON 10 10 MEQ TBCR [Pharmacy Med Nam*30 Tab 5 Sig: TAKE ONE TABLET BY MOUTH DAILY * Telephone Encounter - Geneva Mercedes, QUILL COLLECTOR - 03/07/2018 9:04 AM EDT Pending Prescriptions: Disp Refills KLOR-CON 10 10 MEQ TBCR [Pharmacy Med Nam*30 Tab 5 Sig: TAKE ONE TABLET BY MOUTH DAILY Last Office Visit: 02/21/2018 Next Office Visit: 07/28/2018 Scheduled Provider(s): Leanne Cardoza MD Lr 11-24-17 in this encounter Plan of Treatment Upcoming Encounters Date Type Specialty Care Team Description 03/26/2018 Procedure Only Endoscopy Shakila Rcoha, DO [address] [place] [address] [phone] 06/04/2018 Office Visit Dermatology Jennifer Sebastian PA-C [address] [place] [address] 07/28/2018 Office Visit Internal Medicine Leanne Cardoza MD [address] [place] [address] [place] [address] Health Maintenance Due Date Last Done Comments DTaP,Tdap,and Td Vaccines (1 - Tdap) 05/04/2004 05/03/2004 *ADVANCE DIRECTIVE NOT ON FILE 12/23/2015 *DEPRESSION SCREENING, LUI Lao FOR PTS 18 AND OVER 01/03/2018 COLONOSCOPY-EVERY 3 YRS AGES 18-100 03/08/2018 03/08/2015 CKD LDL USE SMARTSET 43163 ( STAGE 3) OR 60008 (STAGE 4) 03/19/2018 03/19/2017, 09/27/2016, 02/18/2016, Additional history exists CKD GFR USE SMARTSET 43419 06/24/201812/22, 09/12/2017, 04/17/2017, Additional history exists BREAST CANCER SCREENING DISC USSION YEARLY AGES 40-75 12/09/2018 12/09/2017, 10/08/2016, 10/06/2015, Additional history exists CKD HGB USE SMARTSET 09980 12/22/201812/22, 09/12/2017, 04/17/2017, Additional history exists CKD PHOS USE SMARTSET 44432 12/22/201812/05, 09/12/2017, 03/19/2017, Additional history exists CKD URINE PROTEIN/CREATININE RATION OR URINE MICROALBUMIN YEARLY USE SMARTSET 20910 12/22/2018 12/22/2017, 03/19/2017, 02/09/2017, Additional history exists [...]
--- OUTSIDE RECORDS SUMMARY | 2023-06-07 08:29 | External Medical Summary | Summary of Care ---
Author Name Unknown Organization [place] [address] Phone Care Team Providers Care Ui Lead Developer Name Role Phone Yariel Cardoza MD Primary Care Provide r Encounter Details Date Type Department Care Team Description 12/22/2017 Result Scan Unspecified Department <No scans attached> [...] 08/22/201503/30 COPD, severity to be determined ([facility]) 07/20/2015 12/21/2015 ACQ ESOPHAG [...] Visit Internal Medicine Yariel Cardoza MD [address] [place] [address] [place] [address] [phone] 01/09/2018 Office Visit Internal Medicine Yariel Cardoza MD [address] [place] [address] [place] [address] [phone] Health Maintenance Due Date Last Done Comments DTaP,Tdap,and Td Vaccines (1 - Tdap) 05/04/2004 05/03/2004 *ADVANCE DIRECTIVE NOT ON FILE 01/08/2015 COLONOSCOPY-EVERY 3 YRS AGES 18-100 03/08/2018 03/08/2015 CKD GFR USE SMARTSET 49496 03/13/201809/12, 04/17/2017, 03/19/2017, Additional history exists CKD LDL USE SMARTSET 50274 ( STAGE 3) [place] [address] (STAGE 4) 03/19/2018 03/19/2017, 09/27/2016, 02/18/2016, Additional history exists CKD URINE PROTEIN/CREATININE RATION OR URINE MICROALBUMIN YEARLY USE SMARTSET 44487 03/19/2018 03/19/2017, 02/09/2017, 02/18/2016 CKD HGB USE SMARTSET 59717 09/12/201809/12, 04/17/2017, 03/19/2017, Additional history exists CKD PHOS USE SMARTSET 00200 09/12/201804/2017, 03/19/2017, 02/18/2016 BREAST CANCER SCREENING DISC [...] this encounter Results * RADIOLOGY SCANNED RESULT (12/22/2017) * RADIOLOGY SCANNED RESULT (12/22/2017) * RADIOLOGY SCANNED RESULT (12/22/2017) in this encounter Insurance Payer Benefit Plan / Group Subscriber ID Type Phone Address [facility] PREFERRED COMPLETE RX [id number] Medicare [phone] [place] [address] as of this encounter
--- OUTSIDE RECORDS SUMMARY | 2023-06-07 08:29 | External Medical Summary | Summary of Care ---
Author Name Unknown Organization [place] [address] Phone Care Team Providers Care Center Punch Operator Name Role Phone Yariel Cardoza MD Primary Care Provide r Reason for Visit * Reason Comments MEDICATION QUESTION Encounter Details Date Type Department Care Team Description 11/27/2017 Telephone Internal Medicine [address] [id number] Yariel Cardoza MD [address] [place] [address] MEDICATION QUESTION Allergies Active Allergy Reactions Severity Noted Date [...] per week 255 g 0 09/27/2016 Active albuterol-ipratropi um (DUONEB) 2.5-0.5 MG/3ML nebulizer solutionIndications :COPD, severe (HCC) INHALE 3 MLS VIA NEBULIZER EVERY 4 HOURS NEEDED FOR COUGH, SHORTNESS OF BREATH OR WHEEZING. 120 Vial 2 11/12/2016 Active albuterol (VENTOLIN HFA) 108 (90 BASE) [...] Take 81 mg by mouth daily. Active as of this encounter Active Problems [...] encounter Miscellaneous Notes * Telephone Encounter - Callum Kim CPhT - 11/27/2017 2:13 PM EST Pt calling to ask if she can buy Aspirin 81mg chewable tablets OTC instead of filling them as a prescription. Pt states that it costs $20 to fill with her insurance and is cheaper to buy from the shelf. Advised pt that it is fine to buy it OTC and to follow the directions on her previous prescription bottle. Pt verbalized understanding. Thanks, Callum Kim CPhT [facility] 11/27/2017, 2:15 PM in this encounter Plan of Treatment Upcoming Encounters Date Type Specialty Care Team Description 01/09/2018 Office Visit Internal Medicine Yariel Cardoza MD [address] [place] [address] [place] [address] Health Maintenance Due Date Last Done Comments DTaP,Tdap,and Td Vaccines (1 - Tdap) 05/04/2004 05/03/2004 *ADVANCE DIRECTIVE NOT ON FILE 01/08/2015 COLONOSCOPY-EVERY 3 YRS AGES 18-100 03/08/2018 03/08/2015 CKD GFR USE SMARTSET 36095 03/13/201809/12, 04/17/2017, 03/19/2017, Additional history exists CKD [place] USE SMARTSET 76589 ( STAGE 3) [place] [address] (STAGE 4) 03/19/2018 03/19/2017, 09/27/2016, 02/18/2016, Additional history exists CKD URINE PROTEIN/CREATININE RATION OR URINE MICROALBUMIN YEARLY USE SMARTSET 38708 03/19/2018 03/19/2017, 02/09/2017, 02/18/2016 CKD HGB USE SMARTSET 43959 09/12/201809/12, 04/17/2017, 03/19/2017, Additional history exists CKD PHOS USE SMARTSET 13619 09/12/2018 12/0 04/2017, 03/19/2017, 02/18/2016 BREAST CANCER SCREENING DISC USSION [...] / Group Subscriber ID Type Phone Address [facility] [id number] Medicare [address] [facility] [place] [address] as of this encounter
--- OUTSIDE RECORDS SUMMARY | 2023-06-07 08:29 | External Medical Summary | Summary of Care ---
Author Name Unknown Organization [place] [address] Phone Care Team Providers Care Muffler Tender Name Role Phone Yariel Cardoza MD Primary Care Provide r Reason for Visit * Reason Comments eRx-Medication Refill Encounter Details Date Type Department Care Team Description 12/20/2017 Refill Internal Medicine [address] [address] Noemi Cortez PA-C [address] [place] [address] COPD, severe (HCC) Allergies Active Allergy [...] 1 06/06/2017 Active atorvaSTATin (LIPITOR) 20 MG TabletIndications :Dyslipidemia, goal LDL below 100 Take 1 Tab by mouth daily. 90 Tab 1 07/08/2017 Active hydrochlorothiazi de (HYDRODIURIL) 25 MG Tablet [...] :Bilateral edema of lower extremity,Pulmona ry hypertension TAKE 1 TABLET BY MOUTH DAILY NEEDED (SWELLING). FOR FLUID ACCUMULATION OR WEIGHT GAIN 30 Tab 5 10/10/2017 Active Aspirin 81 MG Tablet Take 81 mg by mouth daily. Active albuterol-ipratro pium (DUONEB) 2.5-0.5 MG/3ML nebulizer solutionIndicatio ns:COPD, severe (HCC) INHALE 3 MLS VIA NEBULIZER EVERY 4 HOURS NEEDED FOR COUGH, SHORTNESS OF BREATH OR WHEEZING. 360 mL 1 12/20/2017 Active albuterol-ipratro pium (DUONEB) 2.5-0.5 MG/3ML nebulizer solutionIndicatio ns:COPD, severe (HCC) INHALE 3 MLS VIA NEBULIZER EVERY 4 HOURS NEEDED FOR COUGH, SHORTNESS OF BREATH OR WHEEZING. 120 Vial 2 11/12/2016 12/21/19 18 Discontinued as of this encounter Active [...] Miscellaneous Notes * Telephone Encounter - Hillary Marshall PA-C - 12/20/2017 11:52 AM EDT Signed Prescriptions: Disp Refills albuterol-ipratropium (DUONEB) 2.5-0.5 MG/*360 mL 1 Sig: INHALE 3 MLS VIA NEBULIZER EVERY 4 HOURS NEEDED FOR COUGH, SHORTNESS OF BREATH OR WHEEZING. Authorizing Provider: HILLARY MARSHALL * Telephone Encounter - Maria Antonia Whiteside LPN - 12/20/2017 10:27 AM EDT Pending Prescriptions: Disp Refills albuterol-ipratropium (DUONEB) 2.5-0.5 MG*360 mL 1 Sig: INHALE 3 MLS VIA NEBULIZER EVERY 4 HOURS NEEDED FOR COUGH, SHORTNESS OF BREATH OR WHEEZING. * Telephone Encounter - Maria Antonia Whiteside LPN - 12/20/2017 10:26 AM EDT Pending Prescriptions: Disp Refills albuterol-ipratropium (DUONEB) 2.5-0.5 MG*360 mL 1 Sig: INHALE 3 MLS VIA NEBULIZER EVERY 4 HOURS NEEDED FOR COUGH, SHORTNESS OF BREATH OR WHEEZING. Last Office Visit: 11/22/2017 Next Office Visit: 01/09/2018 Scheduled Provider(s): Yariel Cardoza MD If no future appointments scheduled, and last appointment is greater than a year ago, please schedule patient for a follow-up appointment Last date the medication was ordered: 11/12/16 Phone number(s): [phone] (home) Labs: ALT(U/L) Grisel Dt/Tm Resulted Value Status 09/12/17 10:17A 09/12/17 16 FINAL CREATININE(mg/dL) Grisel Dt/Tm Resulted Value Status 09/12/17 10:17A 09/12/17 0.9 FINAL POTASSIUM(mmol/L) Grisel Dt/Tm Resulted Value Status 09/12/17 10:17A 09/12/17 4.4 FINAL TSH(uIU/mL) Grisel Dt/Tm Resulted Value Status 04/17/17 10:53A 04/17/17 0.69 FINAL LDL (CALCULATED)(mg/dL) Grisel Dt/Tm Resulted Value Status 03/19/17 8:05A 03/19/17 50 FINAL Hemoglobin AIC Results: HEMOGLOBIN, A1C(%) Grisel Dt/Tm Resulted Value Status 03/19/17 8:05A 03/19/17 5.7 FINAL in this encounter Plan of Treatment Upcoming Encounters Date Type Specialty Care Team Description 01/09/2018 Office Visit Internal Medicine Yariel Cardoza MD [address] [place] [address] [place] [address] Health Maintenance Due Date Last Done Comments DTaP,Tdap,and Td Vaccines (1 - Tdap) 05/04/2004 05/03/2004 *ADVANCE DIRECTIVE NOT ON FILE 01/08/2015 COLONOSCOPY-EVERY 3 YRS AGES 18-100 03/08/2018 03/08/2015 CKD GFR USE SMARTSET 23654 03/13/201809/12, 04/17/2017, 03/19/2017, Additional history exists CKD LDL USE SMARTSET 70273 ( STAGE 3) [place] [address] (STAGE 4) 03/19/2018 03/19/2017, 09/27/2016, 02/18/2016, Additional history exists CKD URINE PROTEIN/CREATININE RATION OR URINE MICROALBUMIN YEARLY USE SMARTSET 00541 03/19/2018 03/19/2017, 02/09/2017, 02/18/2016 CKD HGB USE SMARTSET 66782 09/12/201809/12, 04/17/2017, 03/19/2017, Additional history exists CKD PHOS USE SMARTSET 01511 09/12/201804/2017, 03/19/2017, 02/18/2016 BREAST CANCER SCREENING DISC USSION YEARLY AGES 40-75 12/09/2018 12/09/2017, 10/08/2016, 10/06/2015, Additional history exists DIABETES SCREEN EVERY 3 YRS- AGE 45 AND ABOVE 09/12/2020 09/12/2017, 04/17/2017, 03/19/2017, Additional history exists DXA-SCREENING EVERY 7 YRS- E SMARTSET# 3348 TO ORDER 08/17/2022 08/17/2015 PNEUMOCOCCAL ADULT 65 YRS AND OVER Completed 2016, 09/21/2015 Influenza Vaccine (FLU shot) Completed , 07/21/2016, 07/20/2015, Additional history exists as of this encounter Implants Not on fileas of this encounter Visit Diagnoses Diagnosis COPD, severe (HCC) Chronic airway obstruction, not elsewhere classified in this encounter Insurance Payer Benefit Plan / Group Subscriber ID Type Phone Address [facility] PREFERRED COMPLETE RX [id number] Medicare [phone] [facility] [place] [address] as of this encounter
--- OUTSIDE RECORDS SUMMARY | 2023-06-07 08:29 | External Medical Summary | Summary of Care ---
Author Name Unknown Organization [place] [address] Phone Care Team Providers Care Fish Hatchery Laborer Name Role Phone Yariel Cardoza MD Primary Care Provide r Reason for Visit * Reason Comments HOSPITAL FOLLOW-UP HOSPITAL FOLLOW-UP Encounter Details Date Type Department Care Team Description 11/22/2017 Office Visit Internal Medicine [address] [id number] Yariel Cardoza MD [address] [place] [address] [place] [address] Influenza A*;COPD, severe (HCC);Pulmonary hypertension;HTN, goal below 140/90;Impaired fasting glucose;Hospital discharge follow-up Allergies Active Allergy Reactions Severity Noted Date [...] goal below 140/90 08/09/2017 Pulmonary hypertension 05/07/2017 Impaired fasting glucose 03/15/2017 Lumbar spinal stenosis 02/18/2017 Primary osteoarthritis of [...] Resolved Problems Problem Noted Date Resolved Date Thyroid nodule 09/05/2016 01/07/2017 Kidney disease, chronic, [...] Vital Sign Reading Time Taken Blood Pressure 128/82 11/22/2017 10:53 AM EST Pulse 60 11/22/2017 10:53 AM EST Temperature 36.8 C (98.2 F) 11/22/2017 1 0:53 AM EST Respiratory Rate 14 11/22/2017 10:5 3 AM EST Oxygen Saturation - - Inhaled Oxygen Concentration - - Weight 95.4 kg (210 lb 4 oz) 11/22/2017 10:53 AM EST Height - - Body Mass Index 39.08 11/22/2017 10:53 AM EST in this encounter Instructions * Patient Instructions - Yariel Cardoza MD - 11/22/2017 10:59 AM EST Taking Medicine Safely Medicine is given [...] street drugs, herbs, supplements, or even some duqn-aju-eiflquv medicines can be harmful. Talk to your [...] to get rid of medicine: Call your the [facility] or [facility]'s household trash and recycling service and ask if a drug take-back program is available in your community. Call your local pharmacy and ask the right way to get rid of the medicine. Go to http://www.fda.gov/ForConsumers/ConsumerUpdates/qwh178377 to learn how to get rid of [...] brand-name medicine, unless their doctor says otherwise. 6989-0328 [facility], [address] [place] [address]. All rights reserved. This information is not [...] best to keep a sense of humor. [facility], [address] [place] [address]. All rights reserved. This information is not [...] and pharmacist about all the prescription and eglw-wvg-ndtceiq medicines you take.This includes vitamins and herbal remedies. Tell your doctor and pharmacist if you have any medical conditions or allergies to any medicine or food, or if you are or . Keep a list of all your medicines. Use the sample to the right as a guide for the type of information needed. [facility], [address] [place], [place] [address]. All rights reserved. This information is not intended as a substitute for professional medical care. Always follow your healthcare professional's instructions. in this encounter Progress Notes * Yariel Cardoza MD - 11/22/2017 10:59 AM EST Formatting of this note may be different from the original. SUBJECTIVE: Jayla Hayes is a 72 year old female. Chief Complaint Patient presents with HOSPITAL FOLLOW-UP HOSPITAL FOLLOW-UP Recent Admission: Patient was recently admitted to [facility]. The date of discharge was 11/20/2017. Discharge report received and reviewed. HPI: Brief Clinical History Ms. Hayes is a 72 year old woman last seen in Internal Medicine today (11-22-17). She is due for eval of COPD, severe (HCC) and Pulmonary hypertension. Admitted to [facility] 11/17/17-11/20/17 with shortness of breath. Found to have influenza A and COPD exacerbation. Discharged with Tamiflu, azithromycin, and prednisone. Was instructed to use oxygen continuously, at least for short-term used to just use it at night. Does not like carrying the tank around.Has finished the Zithromax and Tamiflu. Has one dose of prednisone left. Developed tachycardia to 135 with hour-long albuterol treatment in the ER. Had mild Troponin was mildly elevated felt to be due to demand ischemia. Was seen by Dr. Garcia. Had echo with EF >70% and no wall motion abnormalities. No chest pain. No palpitations since discharge. Feeling a little better. Still achy but improved. Still having coughing spells. Coughs up some mucus. Breathing has improved. Was short of breath last night. Would like to stop oxygen. Previously only used it at night. Does not have home health. Getting around well. Appetite is normal. Patient Active Problem List Diagnosis Code [...] degenerative disc disease M51.36 Lumbar facet arthropathy M12.88 Urinary, incontinence, stress female N39.3 Rhinitis, nonallergic J31.0 ETD (eustachian tube dysfunction) H69.80 Pruritic disorder L29.9 Multiple thyroid nodules E04.2 Lumbar spinal stenosis M48.061 Primary osteoarthritis of right knee M17.11 Impaired fasting glucose R73.01 Pulmonary hypertension I27.20 HTN, goal below 140/90 I10 Current Outpatient Prescriptions Medication Sig Dispense Refill albuterol (VENTOLIN HFA) 108 (90 BASE) MCG/ACT inhaler Inhale 2 Puffs by mouth every 4 hours asneeded for Wheezing. 3 Inhaler 1 albuterol-ipratropium (DUONEB) 2.5-0.5 MG/3ML nebulizer solution INHALE 3 MLS VIA NEBULIZER EVERY 4 HOURS NEEDED FOR COUGH, SHORTNESS OF BREATH OR WHEEZING. 120 Vial 2 Aspirin 81 MG Tablet Take 81 mg by mouth daily. atenolol (TENORMIN) 50 MG Tablet Take 0.5 Tabs by mouth daily. 90 Tab 1 atorvaSTATin (LIPITOR) 20 MG Tablet Take 1 Tab by mouth daily. 90 Tab 1 budesonide (PULMICORT) 0.5 MG/2ML [...] 6HRS NEEDED FOR DIZZINESS/VERTIGO 10 Tab 0 oxygen GAS Use 2 L/min(Oxygen) as directed continuous. 1 Each 0 polyethylene glycol 3350 (MIRALAX) 255 gram powder Take 17 g by mouth daily. Two-three times per week 255 g 0 triamcinolone acetonide (ARISTOCORT) 0.025 % ointment APPLY TOPICALLY TO AFFECTED AREA TWICE DAILY 0 VITAMIN D-3 1000 UNITS PO CAPS 1 daily Current and discharge medications have been reconciled. Review of patient's allergies indicates: Allergen Reactions Adhesive Tape Sensitive to Aleve [Naproxen] Hives Ivp Dye Hives Latex Other (Please comment) Contact rash Motrin [Ibuprofen] Rash Basic Panel Results: BASIC METAB PANEL, [facility]/ Resulted Value Status CREATININE-OUTSIDE LAB (no units) 02/10/17 02/26/17 1.00 FINAL GFR ESTIMATED-OUTSIDE LAB (no units) 02/10/17 02/26/17 55.8 FINAL POTASSIUM-OUTSIDE LAB (no units) 02/10/17 02/26/17 3.8 FINAL GLUCOSE-OUTSIDE LAB (no units) 02/10/17 02/26/17 90 FINAL Lipid Panel Results: LIPID PANEL [facility]/ Resulted Value Status HOURS FASTING (hours) 03/19/17 8:05A 03/19/17 12 F TRIGLYCERIDES (mg/dL) 03/19/17 8:05A 03/19/17 102 F CHOLESTEROL (mg/dL) 03/19/17 8:05A 03/19/17 117 F HDL (mg/dL) 03/19/17 8:05A 03/19/17 47 F CHOL/HDL RATIO ( ) 03/19/17 8:05A 03/19/17 2.5 F LDL (CALCULATED) (mg/dL) 03/19/17 8:05A 03/19/17 50 F ALT Results: ALT(U/L) [facility]/ Resulted Value Status 09/12/17 10:17A 09/12/17 16 FINAL 04/17/17 10:53A 04/17/17 21 FINAL 03/19/17 8:05A 03/19/17 21 FINAL OBJECTIVE: BP 128/82 | Pulse 60 | Temp (Src) 98.2 (Tympanic) | Resp 14 | Wt 210 lbs 4 oz (95.369kg) | BMI 39.08 kg/m | BSA 2.03 m Review Of Systems: Skin: pt denies, new or changing moles, pigmentation change, rash, scaling, itching, bruising Eyes: negative Ears/Nose/Throat: pt denies:, deafness, tinnitus, vertigo Respiratory: as per HPI Cardiovascular: pt denies:, chest pain, exertional chest pain or pressure, lower extremity edema and +tachycardia during neb treatment in hospital Gastrointestinal: pt. denies:, abdominal pain, bloating or excess gas, dysphagia, nausea, heartburn, blood in stool or black stools, constipation or change in bowel habits, diarrhea Genitourinary: pt denies:, dysuria, frequency and hematuria Musculoskeletal: pt denies significant joint pain or stiffness Neurologic: pt denies:, migraine, headaches, syncope and seizures Psychiatric: pt denies:, sleep disturbance, anxiety, nervousness and depression Hematologic/Lymphatic/Immunologic: pt denies:, recurrent infections, immunodeficiency and anemia Endocrine: pt denies:, thyroid disorder, cold intolerance, heat intolerance and diabetes PHYSICAL EXAM: General: alert, healthy, no distress, well nourished [...] Lungs: chest symmetric with normal AP diameter, lungs clear to auscultation, decreased breath sounds Extremities: no edema, no clubbing, no cyanosis ASSESSMENT: J10.1 Influenza a (primary encounter diagnosis) Plan: Disch med recon cur med lis J44.9 Copd, severe (hcc) Plan: Pulse ox w/ rest/exercise, multiple (op) Dme miscellaneous I27.20 Pulmonary hypertension I10 Htn, goal below 140/90 R73.01 Impaired fasting glucose Z09 Hospital discharge follow-up Plan: Disch med recon cur med lis PLAN: Continue present medication(s): O2 saturation dropped to 88% with ambulation on room air. Continue continuous oxygen for the time being. Reassess at next appointment. Follow up as scheduled. Yariel Cardoza MD in this encounter Nursing Notes * Gracie Martino LPN - 11/22/2017 10:53 AM [facility] follow up. in this encounter Plan of Treatment Upcoming Encounters Date Type Specialty Care Team Description 01/09/2018 Office Visit Internal Medicine Yariel Cardoza MD [address] [place] [address] [place] [address] Health Maintenance Due Date Last Done Comments DTaP,Tdap,and Td Vaccines (1 - Tdap) 1952 *ADVANCE DIRECTIVE NOT ON FILE 01/08/2015 BREAST CANCER SCREENING DISC USSION YEARLY AGES 40-75 10/08/2017 10/08/2016, 10/06/2015, 01/12/2004 COLONOSCOPY-EVERY 3 YRS AGES 18-100 03/08/2018 03/08/2015 CKD GFR USE SMARTSET 01409 03/13/201809/12, 04/17/2017, 03/19/2017, Additional history exists CKD PHOS USE SMARTSET 90988 03/13/201804/2017, 03/19/2017, 02/18/2016 CKD LDL USE SMARTSET 85220 ( STAGE 3) [place] [address] (STAGE 4) 03/19/2018 03/19/2017, 09/27/2016, 02/18/2016, Additional history exists CKD URINE PROTEIN/CREATININE RATION OR URINE MICROALBUMIN YEARLY USE SMARTSET 50996 03/19/2018 03/19/2017, 02/09/2017, 02/18/2016 CKD HGB USE SMARTSET 54490 09/12/201809/12, 04/17/2017, 03/19/2017, Additional history exists DIABETES SCREEN EVERY 3 YRS- AGE 45 AND ABOVE 09/12/2020 09/12/2017, 04/17/2017, 03/19/2017, Additional history exists DXA-SCREENING EVERY 7 YRS-US E SMARTSET# 1450 TO ORDER 08/17/2022 08/17/2015 PNEUMOCOCCAL ADULT 65 YRS AND OVER Completed 2016, 09/21/2015 Influenza Vaccine (FLU shot) Completed , 07/21/2016, 07/20/2015, Additional history exists as of this encounter Implants Not on fileas of this encounter Procedures Procedure Name Priority Date/Time Associated Diagnosis Comments PULSE OX W/ REST/EXERCISE, MULTIPLE (OP) Routine 11/22/2017 12:00 AM EST COPD, severe (HCC) in this encounter Results * PULSE OX W/ REST/EXERCISE, MULTIPLE (OP) (11/22/2017) Component Value Ref Range Pulse Oximetry-Initial Rest 91Comment:without ox ygen Pulse Oximetry-During Exercise 87Comment:without oxygen Pulse Oximetry-Post Exercise 88Comment:2 L oxygen pulse ox returned to 92% Pulse Oximetry-Post Nebulizer in this encounter Visit Diagnoses Diagnosis Influenza A - Primary Influenza with other respiratory manifestations COPD, severe (HCC) Chronic airway obstruction, not elsewhere classified Pulmonary hypertension Other chronic pulmonary heart diseases HTN, goal below 140/90 Unspecified essential hypertension Impaired fasting glucose Hospital discharge follow-up Other follow-up examination in this encounter Insurance Payer Benefit Plan / Group Subscriber ID Type Phone Address [facility] PREFERRED COMPLETE RX [id number] Medicare [phone] [facility] [place] [address] as of this encounter"
--- OUTSIDE RECORDS SUMMARY | 2023-06-07 08:29 | External Medical Summary | Summary of Care ---
Author Name Unknown Organization [place] [address] Phone Care Team Providers Care Child Protective Services Specialist Name Role Phone Yariel Cardoza MD Primary Care Provide r Encounter Details Date Type Department Care Team Description 11/20/2017 Scan Encounter Unspecified Department <No scans attached> [...] WEIGHT GAIN 30 Tab 5 10/10/2017 Active as of this encounter Active Problems [...] Encounters Date Type Specialty Care Team Description 11/22/2017 Office Visit Internal Medicine Yariel Cardoza MD [address] [place] [address] [place] [address] [phone] 01/09/2018 Office Visit Internal Medicine Yariel Cardoza MD [address] [place] [address] [place] [address] [phone] Health Maintenance Due Date Last Done Comments TETANUS EVERY 10 YEARS-TDAP (BOOSTRIX OR ADACEL) SUGGESTED IF NOT RECEIVED IN THE PAST. 05/03/2014 05/03/2004 *ADVANCE DIRECTIVE NOT ON FILE 01/08/2015 BREAST CANCER SCREENING DISC USSION YEARLY AGES 40-75 10/08/2017 10/08/2016, 10/06/2015, 01/12/2004 COLONOSCOPY-EVERY 3 YRS AGES 18-100 03/08/2018 03/08/2015 CKD GFR USE SMARTSET 24926 03/13/201809/12, 04/17/2017, 03/19/2017, Additional history exists CKD PHOS USE SMARTSET 25920 03/13/201804/2017, 03/19/2017, 02/18/2016 CKD LDL USE SMARTSET 10264 ( STAGE 3) [place] [address] (STAGE 4) 03/19/2018 03/19/2017, 09/27/2016, 02/18/2016, Additional history exists CKD URINE PROTEIN/CREATININE RATION OR URINE MICROALBUMIN YEARLY USE SMARTSET 73819 03/19/2018 03/19/2017, 02/09/2017, 02/18/2016 CKD HGB USE SMARTSET 85306 09/12/201809/12, 04/17/2017, 03/19/2017, Additional history exists DIABETES [...] / Group Subscriber ID Type Phone Address [facility] CLASSIC COMPLETE RX [id number] Medicare [phone] [facility] [place] [address] as of this encounter
--- OUTSIDE RECORDS SUMMARY | 2023-06-07 08:29 | External Medical Summary | Summary of Care ---
Author Name Unknown Organization [place] [address] Phone Care Team Providers Care Mail Processing Machine Operator Name Role Phone Yariel Cardoza MD Primary Care Provide r Reason for Visit * Reason Comments EMERGENCY DEPARTMENT FOLLOW-UP [facility] for pain in right hip and leg Encounter Details Date Type Department Care Team Description 12/23/2017 Telephone Internal Medicine [address] [address] Yariel Cardoza MD [address] [place] [address] [place] [address] [phone] EMERGENCY DEPARTMENT FOLLOW-UP ([facility] 3/... Allergies Active Allergy Reactions Severity Noted Date [...] Telephone Encounter - Yariel Cardoza MD - 12/23/2017 11:19 AM EDT Patient scheduled 12/31 * Telephone Encounter - Corrian Mazariegos LPN - 12/23/2017 8:16 AM EDT Pt was seen at [facility] 12/22/17 for right hip and leg pain. Was concluded that it was muscular and given muscle relaxer. Asking for an appt on 12/31/17. * Telephone Encounter - Aleisha Garcia OSA - 12/23/2017 8:14 AM EDT Reason for patient's call: ER f/u - [facility] - 12/22/17 - right leg/hip pain, unable to lift leg Caller was transferred to [place] at the dedicated phone nurse line. in this encounter Plan of Treatment Upcoming Encounters Date Type Specialty Care Team Description 12/31/2017 Office Visit Internal Medicine Yariel Cardoza MD [address] [place] [address] [place] [address] [phone] 01/09/2018 Office Visit Internal Medicine Yariel Cardoza MD [address] [place] [address] [place] [address] [phone] Health Maintenance Due Date Last Done Comments DTaP,Tdap,and Td Vaccines (1 - Tdap) 05/04/2004 05/03/2004 *ADVANCE DIRECTIVE NOT ON FILE 01/08/2015 COLONOSCOPY-EVERY 3 YRS AGES 18-100 03/08/2018 03/08/2015 CKD GFR USE SMARTSET 02620 03/13/201809/12, 04/17/2017, 03/19/2017, Additional history exists CKD LDL USE SMARTSET 45986 ( STAGE 3) [place] [address] (STAGE 4) 03/19/2018 03/19/2017, 09/27/2016, 02/18/2016, Additional history exists CKD URINE PROTEIN/CREATININE RATION OR URINE MICROALBUMIN YEARLY USE SMARTSET 29662 03/19/2018 03/19/2017, 02/09/2017, 02/18/2016 CKD HGB USE SMARTSET 99122 09/12/201809/12, 04/17/2017, 03/19/2017, Additional history exists CKD PHOS USE SMARTSET 89336 09/12/201804/2017, 03/19/2017, 02/18/2016 BREAST CANCER SCREENING DISC [...] / Group Subscriber ID Type Phone Address [facility] PREFERRED COMPLETE RX [id number] Medicare [phone] [place] [phone] as of this encounter
--- OUTSIDE RECORDS SUMMARY | 2023-06-07 08:29 | External Medical Summary | Summary of Care ---
Author Name Unknown Organization [place] [address] Phone Care Team Providers Care Company Laborer Name Role Phone Yariel Cardoza MD Primary Care Provide r Reason for Visit * Reason Comments case management Encounter Details Date Type Department Care Team Description 12/10/2017 Wellness EducatorMulti Skilled Operator Medicine [address] [address] Mariola Mariee RN [address] [place] [address] [place] [id number] Influenza A*;COPD, severe (HCC) Allergies Active Allergy Reactions Severity [...] Progress Notes * Mariola Mariee RN - 12/10/2017 4:20 PM EST Case Management Assessment - Follow Up Assessment/CHRISTIE week #3. Is this call for a hospital, long-term or rehab facility discharge to home? Yes - discharged from [facility], to home, 11/20/17. Discharge dx: influenza A, acute hypoxic respiratory failure, acute COPD exacerbation, elevated troponin-demand ischemia. S: Reports: Increased edema: denies Chest pain - denies Increased shortness of breath: patient reports she had been having trouble breathing 2 days ago, but feels was related to increased anxiety because their furnace broke down. Doing better today. cough denies dyspnea - denies at rest, becomes dyspneic with activities such as bathing and dressing. oxygen concentrator, 2L-rest, 2L-activity/exercise and 2L-sleep Chills / Sweats / Fever: denies chills/sweats and denies fever Fall: denies any falls since last Care Management encounter Appetite: denies nausea, vomiting, burning -reports decreased appetite over the past month Bowel: denies problems Bladder: denies problems -stress/urge/overflow incontinence unchanged from patient's normal Medications: takes all medications as prescribed. and denies side effects Chronic Pain: denies at present. Intermittent lower back discomforts. O: Phone visit for 3 month follow up and ongoing transitions of care. Spoke with patient. Alert, oriented, pleasant. Reports condition as improved. Still sleeping in a recliner. Anxious at times. Asking CM about [facility]ging help them to put in a walk in shower? Reports someone told her if the doctor ordered it as necessary, they would help do that. Asking CM to speak with PCP. Has periods of increased anxiety. Medications: takes all medications as prescribed. and denies side effects -med rec completed with patient -[facility] [place]. A: Patient Centered Prioritized Goals: Patient will have pain well managed. Exacerbations have been prevented, minimized or reduced in severity. Co-morbid conditions identified and managed. Patient will have an AD completed and on file with PCP. Patient will have a rescue kit. Identified Barriers: Lack of or limited access to reliable transportation, Older than 70 years and Unrealistic goals or expectations P: Wellness Educator Interventions: Reinforce Self Management Action Plan established at previous visit Reinforced "call back instructions" if symptoms increase Updated managing provider Reinforced sodium restriction related to diagnosis of hypertension Reinforced safety education / fall prevention Reinforced medication regimen - timing / dosing / purpose Referral made to [facility]) to see if there are any resources available to help patient/spouse install walk in shower. Explained/reinforced role of caser up. Encouraged to call with any issues or concerns. Gave direct phone number and contact information. PCP Notified of enrollment in CM/HM program: No, notified previously. SNP Member? No Re-evaluation of plan of care and progress towards goals achievement: taking medications as ordered, plans to keep appointments as scheduled, reports respiratory status as improved, furnace was repaired. Plan to call patient in one week, to reassess and update plan of care, instructed to call Wellness Educator or Primary Care Provider with change in symptoms or as needed before next follow-up, verbalizes understanding and agrees with plan. Mariola Mariee RN Outpatient Wellness Educator in this encounter Plan of Treatment Upcoming Encounters Date Type Specialty Care Team Description 01/09/2018 Office Visit Internal Medicine Yariel Cardoza MD [address] [place] [address] [place] [address] Health Maintenance Due Date Last Done Comments DTaP,Tdap,and Td Vaccines (1 - Tdap) 05/04/2004 05/03/2004 *ADVANCE DIRECTIVE NOT ON FILE 01/08/2015 BREAST CANCER SCREENING DISC USSION YEARLY AGES 40-75 10/08/2017 10/08/2016, 10/06/2015, 01/12/2004 COLONOSCOPY-EVERY 3 YRS AGES 18-100 03/08/2018 03/08/2015 CKD GFR USE SMARTSET 40282 03/13/201809/12, 04/17/2017, 03/19/2017, Additional history exists CKD LDL USE SMARTSET 75529 ( STAGE 3) [place] 9[address]83 (STAGE 4) 03/19/2018 03/19/2017, 09/27/2016, 02/18/2016, Additional history exists CKD URINE PROTEIN/CREATININE RATION OR URINE MICROALBUMIN YEARLY USE SMARTSET 35796 03/19/2018 03/19/2017, 02/09/2017, 02/18/2016 CKD HGB USE SMARTSET 10959 09/12/201809/12, 04/17/2017, 03/19/2017, Additional history exists CKD PHOS USE SMARTSET 78900 09/12/201804/2017, 03/19/2017, 02/18/2016 DIABETES SCREEN EVERY 3 YRS- AGE 45 AND ABOVE 09/12/2020 09/12/2017, 04/17/2017, 03/19/2017, Additional history exists DXA-SCREENING EVERY 7 YRS-US E SMARTSET# 3348 TO ORDER 08/17/2022 08/17/2015 PNEUMOCOCCAL ADULT 65 YRS AND OVER Completed 2016, 09/21/2015 Influenza Vaccine (FLU shot) Completed , 07/21/2016, 07/20/2015, Additional history exists as of this encounter Implants Not on fileas of this encounter Visit Diagnoses Diagnosis Influenza A - Primary Influenza with other respiratory manifestations COPD, severe (HCC) Chronic airway obstruction, not elsewhere classified in this encounter Insurance Payer Benefit Plan / Group Subscriber ID Type Phone Address [facility] PREFERRED COMPLETE RX [id number] Medicare [phone] [place] [address] as of this encounter
--- OUTSIDE RECORDS SUMMARY | 2023-06-07 08:29 | External Medical Summary | Summary of Care ---
Author Name Unknown Organization [place] [address] Phone Care Team Providers Care Food Preparation Supervisor Name Role Phone Yariel Cardoza MD Primary Care Provide r Encounter Details Date Type Department Care Team Description 11/17/2017 Scan Encounter Unspecified Department <No scans attached> [...] Visit Internal Medicine Yariel Cardoza MD [address] [place] [address] CL[place] Abbott [address] Health Maintenance Due Date Last Done Comments TETANUS EVERY 10 YEARS-TDAP (BOOSTRIX OR ADACEL) SUGGESTED IF NOT RECEIVED IN THE PAST. 05/03/2014 05/03/2004 *ADVANCE DIRECTIVE NOT ON FILE 01/08/2015 BREAST CANCER SCREENING DISC USSION YEARLY AGES 40-75 10/08/2017 10/08/2016, 10/06/2015, 01/12/2004 COLONOSCOPY-EVERY 3 YRS AGES 18-100 03/08/2018 03/08/2015 CKD GFR USE SMARTSET 08543 03/13/201809/12, 04/17/2017, 03/19/2017, Additional history exists CKD PHOS USE SMARTSET 29296 03/13/201804/2017, 03/19/2017, 02/18/2016 CKD LDL USE SMARTSET 50094 ( STAGE 3) [place] 16808 (STAGE 4) 03/19/2018 03/19/2017, 09/27/2016, 02/18/2016, Additional history exists CKD URINE PROTEIN/CREATININE RATION OR URINE MICROALBUMIN YEARLY USE SMARTSET 71837 03/19/2018 03/19/2017, 02/09/2017, 02/18/2016 CKD HGB USE SMARTSET 69315 09/12/201809/12, 04/17/2017, 03/19/2017, Additional history exists DIABETES [...] / Group Subscriber ID Type Phone Address [employer] [facility] CLASSIC COMPLETE RX [id number] Medicare [phone] [place] [address] as of this encounter
--- OUTSIDE RECORDS SUMMARY | 2023-06-07 08:29 | External Medical Summary | Summary of Care ---
Author Name Unknown Organization [place] [address] Phone Care Team Providers Care Byproducts Pump Operator Name Role Phone Yariel Cardoza MD Primary Care Provide r Encounter Details Date Type Department Care Team Description 11/17/2017 Result Scan Unspecified Department <No scans attached> [...] Office Visit Internal Medicine Yariel Cardoza MD [address] [place] [address] CL[place] Abbott [address] Health Maintenance Due Date Last Done Comments TETANUS EVERY 10 YEARS-TDAP (BOOSTRIX OR ADACEL) SUGGESTED IF NOT RECEIVED IN THE PAST. 05/03/2014 05/03/2004 *ADVANCE DIRECTIVE NOT ON FILE 01/08/2015 BREAST CANCER SCREENING DISC USSION YEARLY AGES 40-75 10/08/2017 10/08/2016, 10/06/2015, 01/12/2004 COLONOSCOPY-EVERY 3 YRS AGES 18-100 03/08/2018 03/08/2015 CKD GFR USE SMARTSET 01354 03/13/201809/12, 04/17/2017, 03/19/2017, Additional history exists CKD PHOS USE SMARTSET 34669 03/13/201804/2017, 03/19/2017, 02/18/2016 CKD LDL USE SMARTSET 82727 ( STAGE 3) [place] 79263 (STAGE 4) 03/19/2018 03/19/2017, 09/27/2016, 02/18/2016, Additional history exists CKD URINE PROTEIN/CREATININE RATION OR URINE MICROALBUMIN YEARLY USE SMARTSET 56499 03/19/2018 03/19/2017, 02/09/2017, 02/18/2016 CKD HGB USE SMARTSET 51689 09/12/201809/12, 04/17/2017, 03/19/2017, Additional history exists DIABETES [...] this encounter Results * RADIOLOGY SCANNED RESULT (11/17/2017) in this encounter Insurance Payer Benefit Plan / Group Subscriber ID Type Phone Address [facility] GHP CLASSIC COMPLETE RX [id number] Medicare [phone] [place] [address] as of this encounter
--- OUTSIDE RECORDS SUMMARY | 2023-06-07 08:29 | External Medical Summary | Summary of Care ---
Author Name Unknown Organization [place] [address] Phone Care Team Providers Care Lightning Rod Installer Name Role Phone Yariel Cardoza MD [...] Visit Internal Medicine Yariel Cardoza MD [address] [place] [address] CLARK Abbott [address] Health Maintenance Due Date Last Done Comments TETANUS EVERY 10 YEARS-TDAP (BOOSTRIX OR ADACEL) SUGGESTED IF NOT RECEIVED IN THE PAST. 05/03/2014 05/03/2004 *ADVANCE DIRECTIVE NOT ON FILE 01/08/2015 BREAST CANCER SCREENING DISC USSION YEARLY AGES 40-75 10/08/2017 10/08/2016, 10/06/2015, 01/12/2004 COLONOSCOPY-EVERY 3 YRS AGES 18-100 03/08/2018 03/08/2015 CKD GFR USE SMARTSET 53356 03/13/201809/12, 04/17/2017, 03/19/2017, Additional history exists CKD PHOS USE SMARTSET 25951 03/13/201804/2017, 03/19/2017, 02/18/2016 CKD LDL USE SMARTSET 89406 ( STAGE 3) [place] [address] (STAGE 4) 03/19/2018 03/19/2017, 09/27/2016, 02/18/2016, Additional history exists CKD URINE PROTEIN/CREATININE RATION OR URINE MICROALBUMIN YEARLY USE SMARTSET 98163 03/19/2018 03/19/2017, 02/09/2017, 02/18/2016 CKD HGB USE SMARTSET 16688 09/12/201809/12, 04/17/2017, 03/19/2017, Additional history exists DIABETES [...] / Group Subscriber ID Type Phone Address [employer] [facility] CLASSIC COMPLETE RX [id number] Medicare [phone] [place] [address] as of this encounter
--- OUTSIDE RECORDS SUMMARY | 2023-06-07 08:29 | External Medical Summary | Summary of Care ---
Author Name Unknown Organization [place] [address] Phone Care Team Providers Care Technology Architect Name Role Phone Yariel Cardoza MD Primary Care Provide r Encounter Details Date Type Department Care Team Description 11/18/2017 Scan Encounter Unspecified Department <No scans attached> [...] Visit Internal Medicine Yariel Cardoza MD [address] [place] [address] CLARK Abbott [address] Health Maintenance Due Date Last Done Comments TETANUS EVERY 10 YEARS-TDAP (BOOSTRIX OR ADACEL) SUGGESTED IF NOT RECEIVED IN THE PAST. 05/03/2014 05/03/2004 *ADVANCE DIRECTIVE NOT ON FILE 01/08/2015 BREAST CANCER SCREENING DISC USSION YEARLY AGES 40-75 10/08/2017 10/08/2016, 10/06/2015, 01/12/2004 COLONOSCOPY-EVERY 3 YRS AGES 18-100 03/08/2018 03/08/2015 CKD GFR USE SMARTSET 55014 03/13/201809/12, 04/17/2017, 03/19/2017, Additional history exists CKD PHOS USE SMARTSET 00546 03/13/201804/2017, 03/19/2017, 02/18/2016 CKD LDL USE SMARTSET 55022 ( STAGE 3) [place] 23991 (STAGE 4) 03/19/2018 03/19/2017, 09/27/2016, 02/18/2016, Additional history exists CKD URINE PROTEIN/CREATININE RATION OR URINE MICROALBUMIN YEARLY USE SMARTSET 33984 03/19/2018 03/19/2017, 02/09/2017, 02/18/2016 CKD HGB USE SMARTSET 76022 09/12/201809/12, 04/17/2017, 03/19/2017, Additional history exists DIABETES [...] / Group Subscriber ID Type Phone Address [employer] [facility] CLASSIC COMPLETE RX [id number] Medicare [phone] [place] [address] as of this encounter
--- OUTSIDE RECORDS SUMMARY | 2023-06-07 08:29 | External Medical Summary | Summary of Care ---
Author Name Unknown Organization [place] [address] Phone Care Team Providers Care Double Reamer Operator Name Role Phone Yariel Cardoza MD [...] Visit Internal Medicine Yariel Cardoza MD [address] [place] [address] CL[place] Abbott [address] [phone] 01/09/2018 Office Visit Internal Medicine Yariel Cardoza MD [address] [place] [address] CL[place] Abbott [address] [phone] Health Maintenance Due Date Last Done Comments TETANUS EVERY 10 YEARS-TDAP (BOOSTRIX OR ADACEL) SUGGESTED IF NOT RECEIVED IN THE PAST. 05/03/2014 05/03/2004 *ADVANCE DIRECTIVE NOT ON FILE 01/08/2015 BREAST CANCER SCREENING DISC USSION YEARLY AGES 40-75 10/08/2017 10/08/2016, 10/06/2015, 01/12/2004 COLONOSCOPY-EVERY 3 YRS AGES 18-100 03/08/2018 03/08/2015 CKD GFR USE SMARTSET 97430 03/13/201809/12, 04/17/2017, 03/19/2017, Additional history exists CKD PHOS USE SMARTSET 92706 03/13/201804/2017, 03/19/2017, 02/18/2016 CKD LDL USE SMARTSET 44967 ( STAGE 3) [place] [address] (STAGE 4) 03/19/2018 03/19/2017, 09/27/2016, 02/18/2016, Additional history exists CKD URINE PROTEIN/CREATININE RATION OR URINE MICROALBUMIN YEARLY USE SMARTSET 67521 03/19/2018 03/19/2017, 02/09/2017, 02/18/2016 CKD HGB USE SMARTSET 85025 09/12/201809/12, 04/17/2017, 03/19/2017, Additional history exists DIABETES [...] / Group Subscriber ID Type Phone Address [facility] CLASSIC COMPLETE RX [id number] Medicare [phone] [facility] [place] [address] as of this encounter
--- OUTSIDE RECORDS SUMMARY | 2023-06-07 08:29 | External Medical Summary | Summary of Care ---
Author Name Unknown Organization [place] [address] Phone Care Team Providers Care Plate Shop Helper Name Role Phone Yariel Cardoza MD Primary Care Provide r Reason for Visit * Reason Comments case management Encounter Details Date Type Department Care Team Description 12/10/2017 Glass Melt OperatorSticker Machine Operator Medicine [address] [address] Mariola Mariee RN [address] [place] [address] [place] [id number] Influenza A*;COPD, severe (HCC) Allergies Active Allergy [...] #3. Is this call for a hospital, prison or rehab facility discharge to home? Yes - discharged from [facility], to home, 11/20/17. Discharge dx: influenza A, [...] -[facility] [place]. A: Patient Centered Prioritized Goals: Patient will have pain well managed. Exacerbations have been prevented, minimized or reduced in severity. Co-morbid conditions identified and managed. Patient will have an AD completed and on file with PCP. Patient will have a rescue kit. Identified Barriers: Lack of or limited access to reliable transportation, Older than 70 years and Unrealistic goals or expectations P: Glass Melt Operator Interventions: Reinforce Self Management Action Plan established [...] install walk in shower. Explained/reinforced role of cyanide case hardener. Encouraged to call with any issues or concerns. Gave direct phone number and contact information. PCP Notified of enrollment in CM/HM program: No, notified previously. SNP Member? No Re-evaluation of plan of care and progress towards goals achievement: taking medications as ordered, plans to keep appointments as scheduled, reports respiratory status as improved, participating with IVR calls, furnace was repaired. Plan to call patient in one week, via IVR, to reassess and update plan of care, instructed to call Glass Melt Operator or Primary Care Provider with change in symptoms or as needed before next follow-up, verbalizes understanding and agrees with plan. Mariola Mariee RN Outpatient Glass Melt Operator in this encounter Plan of Treatment Upcoming Encounters Date Type Specialty Care Team Description 01/09/2018 Office Visit Internal Medicine Yariel Cardoza MD [address] [place] [address] CL[place] Abbott [address] Health Maintenance Due Date Last Done Comments DTaP,Tdap,and Td Vaccines (1 - Tdap) 05/04/2004 05/03/2004 *ADVANCE DIRECTIVE NOT ON FILE 01/08/2015 BREAST CANCER SCREENING DISC USSION YEARLY AGES 40-75 10/08/2017 10/08/2016, 10/06/2015, 01/12/2004 COLONOSCOPY-EVERY 3 YRS AGES 18-100 03/08/2018 03/08/2015 CKD GFR USE SMARTSET 61815 03/13/201809/12, 04/17/2017, 03/19/2017, Additional history exists CKD LDL USE SMARTSET 10670 ( STAGE 3) [place] [address] (STAGE 4) 03/19/2018 03/19/2017, 09/27/2016, 02/18/2016, Additional history exists CKD URINE PROTEIN/CREATININE RATION OR URINE MICROALBUMIN YEARLY USE SMARTSET 24570 03/19/2018 03/19/2017, 02/09/2017, 02/18/2016 CKD HGB USE SMARTSET 12637 09/12/201809/12, 04/17/2017, 03/19/2017, Additional history exists CKD PHOS USE SMARTSET 04589 09/12/201804/2017, 03/19/2017, 02/18/2016 DIABETES SCREEN EVERY 3 [...] ID Type Phone Address [facility] [employer] [facility] PREFERRED COMPLETE RX [id number] Medicare [phone] [place] [address] as of this encounter
--- OUTSIDE RECORDS SUMMARY | 2023-06-07 08:29 | External Medical Summary | Summary of Care ---
Author Name Unknown Organization [place] [address] Phone Care Team Providers Care Automotive Welder Name Role Phone Yariel Cardoza MD Primary Care Provide r Encounter Details Date Type Department Care Team Description 12/11/2017 Orders Only Internal Medicine [address] [address] Yariel Cardoza MD [address] [place] [address] [place] [address] Allergies Active Allergy Reactions Severity [...] Visit Internal Medicine Yariel Cardoza MD [address] [place] [address] CL[place] Abbott [address] [phone] Pending Results Name Priority Associated Diagnoses Date/Ti me MAMMOGRAM SCREENING BILATERAL Routine 12/09/2017 12:00 AM EST Health Maintenance Due Date Last Done Comments DTaP,Tdap,and Td Vaccines (1 - Tdap) 05/04/2004 05/03/2004 *ADVANCE DIRECTIVE NOT ON FILE 01/08/2015 BREAST CANCER SCREENING DISC USSION YEARLY AGES 40-75 10/08/2017 10/08/2016, 10/06/2015, 01/12/2004 COLONOSCOPY-EVERY 3 YRS AGES 18-100 03/08/2018 03/08/2015 CKD GFR USE SMARTSET 52281 03/13/201809/12, 04/17/2017, 03/19/2017, Additional history exists CKD LDL USE SMARTSET 34005 ( STAGE 3) [place] [address] (STAGE 4) 03/19/2018 03/19/2017, 09/27/2016, 02/18/2016, Additional history exists CKD URINE PROTEIN/CREATININE RATION OR URINE MICROALBUMIN YEARLY USE SMARTSET 78639 03/19/2018 03/19/2017, 02/09/2017, 02/18/2016 CKD HGB USE SMARTSET 07905 09/12/201809/12, 04/17/2017, 03/19/2017, Additional history exists CKD PHOS USE SMARTSET 04355 09/12/201804/2017, 03/19/2017, 02/18/2016 DIABETES SCREEN EVERY 3 [...] / Group Subscriber ID Type Phone Address [facility] PREFERRED COMPLETE RX [id number] Medicare [phone] [facility] [place] [address] as of this encounter
--- OUTSIDE RECORDS SUMMARY | 2023-06-07 08:29 | External Medical Summary | Summary of Care ---
Author Name Unknown Organization [place] [address] Phone Care Team Providers Care Four Slide Machine Setter Name Role Phone Yariel Cardoza MD Primary Care Provide r Encounter Details Date Type Department Care Team Description 10/25/2017 Scan Encounter Unspecified Department <No scans attached> [...] Visit Internal Medicine Yariel Cardoza MD [address] [place] [address] CLARK Abbott [address] Health Maintenance Due Date Last Done Comments TETANUS EVERY 10 YEARS-TDAP (BOOSTRIX OR ADACEL) SUGGESTED IF NOT RECEIVED IN THE PAST. 05/03/2014 05/03/2004 *ADVANCE DIRECTIVE NOT ON FILE 01/08/2015 BREAST CANCER SCREENING DISC USSION YEARLY AGES 40-75 10/08/2017 10/08/2016, 10/06/2015, 01/12/2004 COLONOSCOPY-EVERY 3 YRS AGES 18-100 03/08/2018 03/08/2015 CKD GFR USE SMARTSET 07823 03/13/201809/12, 04/17/2017, 03/19/2017, Additional history exists CKD PHOS USE SMARTSET 77574 03/13/201804/2017, 03/19/2017, 02/18/2016 CKD LDL USE SMARTSET 43672 ( STAGE 3) [place] 06[address] (STAGE 4) 03/19/2018 03/19/2017, 09/27/2016, 02/18/2016, Additional history exists CKD URINE PROTEIN/CREATININE RATION OR URINE MICROALBUMIN YEARLY USE SMARTSET 85285 03/19/2018 03/19/2017, 02/09/2017, 02/18/2016 CKD HGB USE SMARTSET 54603 09/12/201809/12, 04/17/2017, 03/19/2017, Additional history exists DIABETES [...] / Group Subscriber ID Type Phone Address [employer] [facility] CLASSIC COMPLETE RX [id number] Medicare [phone] [place] [address] as of this encounter
--- OUTSIDE RECORDS SUMMARY | 2023-06-07 08:30 | External Medical Summary ---
Author Name Unknown Address [address] [place] [address] [place] [address] Phone Organization [id number] [place] [address] Laboratory Report Ordering Provider Test Date Status MIGUEL CHE 04/17/2017 10:53:00 Final Observation Date Value Abnormality Reference Status WBC, Total 04/17/2017 11:09 7.45 4.00-10.80 F inal RBC 04/17/2017 11:09 4.55 3.85-5.15 Fin al Hemoglobin 04/17/2017 11:09 14.1 12.0-15.3 Fi nal HCT 04/17/2017 11:09 45.4 Above high normal 36.0- 45.2 Final MCV 04/17/2017 11:09 99.8 Above high normal 81.5- 97.5 Final MCH 04/17/2017 11:09 31.0 27.0-34.0 Fin al MCHC 04/17/2017 11:09 31.1 Below low normal 32.0-3 6.0 Final RDW 04/17/2017 11:09 14.3 11.5-15.5 Fin al Platelets 04/17/2017 11:09 172 140-400 Fin al MPV 04/17/2017 11:09 9.4 6.6-11.1 Fin al Segs 04/17/2017 11:09 65.2 40-75 Fin al Lymphs % 04/17/2017 11:09 19.9 18-42 Fin al Monos 04/17/2017 11:09 12.8 Above high normal 1-11 Final Eosinophils 04/17/2017 11:09 1.7 0-6 F inal Basos 04/17/2017 11:09 0.4 0-2 Fin al Absolute Segs 04/17/2017 11:09 4.86 1.8-7.7 Final Lymphs, absolute 04/17/2017 11:09 1.48 1.0-4. 8 Final Monos, Abs 04/17/2017 11:09 0.95 0.0-1.1 Fi nal Eos, Abs 04/17/2017 11:09 0.13 0.0-0.7 Fin paulina Velezos, Abs 04/17/2017 11:09 0.03 0.0-0.2 Fi nal Performing Location [address] [place] [address]
--- OUTSIDE RECORDS SUMMARY | 2023-06-07 08:30 | External Medical Summary ---
Author Name Unknown Address [address] [facility] Phone Organization K01:[facility] [address] [place] [id number] Laboratory Report Ordering Provider Test Date Status LOLLY MEHTA 09/12/2017 10:17:00 Final Observation Date Value Abnormality Reference Status Phosphate 09/12/2017 23:26 3.2 2.5-4.8 Fin al Performing Location [facility] [address] [facility] [address]
--- OUTSIDE RECORDS SUMMARY | 2023-06-07 08:30 | External Medical Summary | Summary of Care ---
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 90 Tab 1 06/06/2017 Active furosemide (LASIX) 20 MG TabletIndications:B ilateral edema of lower extremity,Pulmonary hypertension Take 1 Tab by mouth daily as needed (swelling). for fluid accumulation or weight gain 30 Tab 0 06/19/2017 Active atorvaSTATin (LIPITOR) 20 MG TabletIndications:D yslipidemia, [...] FOR DIZZINESS/VERTIGO 10 Tab 0 09/10/2017 Active as of this encounter Active Problems [...] Progress Notes * Mariola Mariee RN - 09/12/2017 12:32 PM EST Case Management Assessment - Follow Up Assessment. Is this call for a hospital, correction or rehab facility discharge to home? No S: Reports: Weight gain: Weight stable at 210 lbs Increased edema: denies Chest pain - denies Increased shortness of breath: denies at rest cough denies dyspnea with exertion -uses home oxygen at 2 liters/minute via nasal cannula. Chills / Sweats / Fever: temperature of 98.7, denies chills/sweats and denies fever Fall: denies any falls since last Care Management encounter Appetite: denies nausea, vomiting, burning, decreased appetite Bowel: denies problems Bladder: denies problems Medications: takes all medications as prescribed. and denies side effects Blood Pressure: at today's appointment was 122/82, pulse 55. O: Office visit for follow up assessment. Met with patient/spouse following appointment. Alert, oriented, pleasant. Spouse provided transportation today. Independent with ADL's, needs some assist with IADL's. Not active with any home health agency. Lives with spouse - who is supportive. Wears glasses. Medications: takes all medications as prescribed. and denies side effects -med rec completed by office visit nurseAndressa LPN. -confirmed pharmacy of choice as [facility] in [place]. A: Patient Centered Prioritized Goals: Patient will have a Rescue Kit in place. Exacerbations have been prevented, minimized or reduced in severity. Co-morbid conditions identified and managed. Patient will have pain well managed. Patient will have an AD completed and on file with PCP. Identified Barriers: Older than 70 years P: Design Leader Interventions: Reinforce Self Management Action Plan established at previous visit Reinforced "call back instructions" if symptoms increase Reinforced sodium restriction related to dx of HTN Reinforced safety education / fall prevention Reinforced medication regimen - timing / dosing / purpose Explained/reinforced role of rehabilitation case coordinator. Encouraged to call with any issues or [...] -Avoid triggers -Clean inhalers once a week Enrolled in COPD Surveillance: patient will received a phone call in 3 month via IVR, then in 6 months from CM. Will increase frequency if exacerbates. COPD Exacerbation Plan: For increased shortness of breath - make sure you are using your nebulizer and inhalers as ordered;if still has increased shortness of breath with activity or at rest, increased cough, increased sputum production: call CM or PCP or pulmonology. PCP Notified of enrollment in CM/HM program: Yes SNP Member? No Re-evaluation of plan of care and progress towards goals achievement: taking medications as ordered, keeps appointments as scheduled, pain managed, LDL at goal, BP at goal, denies problems/concerns. Plan to call patient in 3 months, via IVR, to reassess and update plan of care, instructed to call Design Leader or Primary Care Provider with change in symptoms or as needed before next follow-up, verbalizes understanding and agrees with plan. Mariola Mariee, RN Outpatient Design Leader in this encounter Plan of Treatment Upcoming Encounters Date Type Specialty Care Team Description 09/16/2017 Imaging Radiology Mov, Tech Ultrasound [address] [place] [address] [place] [address] [phone] Dizziness* 01/09/2018 Office Visit Internal Medicine Yariel Cardoza MD [address] [place] [address] [place] [address] [phone] Health Maintenance Due Date Last Done Comments TETANUS EVERY 10 YEARS-TDAP (BOOSTRIX OR ADACEL) SUGGESTED IF NOT RECEIVED IN THE PAST. 05/03/2014 05/03/2004 *ADVANCE DIRECTIVE NOT ON FILE 01/08/2015 CKD PHOS USE SMARTSET 00524 09/18/2017 03/19/2017, 0 02/18/2016 BREAST CANCER SCREENING DISC USSION YEARLY AGES 40-75 10/08/2017 10/08/2016, 10/06/2015, 01/12/2004 CKD GFR USE SMARTSET 48247 10/18/201704/17, 03/19/2017, 02/10/2017, Additional history exists COLONOSCOPY-EVERY 3 YRS AGES 18-100 03/08/2018 03/08/2015 CKD LDL USE SMARTSET 18644 ( STAGE 3) [place] 77[address] (STAGE 4) 03/19/2018 03/19/2017, 09/27/2016, 02/18/2016, Additional history exists CKD URINE PROTEIN/CREATININE RATION OR URINE MICROALBUMIN YEARLY USE SMARTSET 39018 03/19/2018 03/19/2017, 02/09/2017, 02/18/2016 CKD HGB USE SMARTSET 49259 04/17/201804/17, 03/19/2017, 02/10/2017, Additional history exists DIABETES SCREEN EVERY 3 YRS- AGE 45 AND ABOVE 04/17/2020 04/17/2017, 03/19/2017, 03/19/2017, Additional history exists DXA-SCREENING EVERY 7 YRS-US E SMARTSET# 3348 TO ORDER 08/17/2022 08/17/2015 PNEUMOCOCCAL ADULT 65 YRS AND OVER Completed 2016, 09/21/2015 Influenza Vaccine (FLU shot) Completed , 07/21/2016, 07/20/2015, Additional history exists as of this encounter Implants Not on fileas of this encounter Visit Diagnoses Diagnosis COPD, severe (HCC) - Primary Chronic airway obstruction, not elsewhere classified Balance problem due to labyr inthine dysfunction Unspecified labyrinthine dysfunction HTN, goal below 140/90 Unspecified essential hypertension Dyslipidemia, goal LDL below 100 Other and unspecified hyperlipidemia in this encounter Insurance Payer Benefit Plan / Group Subscriber ID Type Phone Address [facility] City Notes [facility] CLASSIC COMPLETE RX [id number] Medicare [phone] [facility] [place] [address] as of this encounter
--- OUTSIDE RECORDS SUMMARY | 2023-06-07 08:30 | External Medical Summary ---
Author Name Unknown Address [address] [id number] Phone Organization K01:[facility] [address] [id number] Laboratory Report Ordering Provider Test Date Status LOLLY MEHTA 09/12/2017 10:17:00 Final Observation Date Value Abnormality Reference Status Vitamin B12 09/13/2017 00:12 [phone] F inal Performing Location [address] [address]
--- OUTSIDE RECORDS SUMMARY | 2023-06-07 08:30 | External Medical Summary | Summary of Care ---
Author Name Unknown Organization [place] [address] Phone Care Team Providers Care Pier Runner Name Role Phone Yariel Cardoza MD Primary Care Provide r Encounter Details Date Type Department Care Team Description 08/07/2017 Scan Encounter Unspecified Department <No scans attached> [...] directed continuous. 1 Each 0 02/18/2017 Active KLOR-CON 10 10 MEQ TBCR TAKE 1 TAB BY MOUTH DAILY. 30 Tab 5 03/07/2017 Active atenolol (TENORMIN) 50 MG Tablet Take [...] MOUTH DAILY 90 Tab 1 07/12/2017 Active as of this encounter Active Problems [...] Encounters Date Type Specialty Care Team Description 09/12/2017 Office Visit Internal Medicine Charo Michaels CRNP [address] [place] [address] [phone] 01/09/2018 Office Visit Internal Medicine Yariel Cardoza MD [address] [place] [address] [place] [address] Health Maintenance Due Date Last Done Comments TETANUS EVERY 10 YEARS-TDAP (BOOSTRIX OR ADACEL) SUGGESTED IF NOT RECEIVED IN THE PAST. 05/03/2014 05/03/2004 *ADVANCE DIRECTIVE NOT ON FILE 01/08/2015 CKD PHOS USE SMARTSET 84193 09/18/2017 03/19/2017, 0 02/18/2016 BREAST CANCER SCREENING DISC USSION YEARLY AGES 40-75 10/08/2017 10/08/2016, 10/06/2015, 01/12/2004 CKD GFR USE SMARTSET 76922 10/18/201704/17, 03/19/2017, 02/10/2017, Additional history exists COLONOSCOPY-EVERY 3 YRS AGES 18-100 03/08/2018 03/08/2015 CKD LDL USE SMARTSET 22090 ( STAGE 3) [place] [address] (STAGE 4) 03/19/2018 03/19/2017, 09/27/2016, 02/18/2016, Additional history exists CKD URINE PROTEIN/CREATININE RATION OR URINE MICROALBUMIN YEARLY USE SMARTSET 02554 03/19/2018 03/19/2017, 02/09/2017, 02/18/2016 CKD HGB USE SMARTSET 84784 04/17/201804/17, 03/19/2017, 02/10/2017, Additional history exists DIABETES [...] / Group Subscriber ID Type Phone Address [facility] [employer] [facility] CLASSIC COMPLETE RX [id number] Medicare [phone] [place] [phone] as of this encounter
--- OUTSIDE RECORDS SUMMARY | 2023-06-07 08:30 | External Medical Summary | Summary of Care ---
Author Name Unknown Organization [place] [address] Phone Care Team Providers Care Cleat Feeder Name Role Phone Yariel Cardoza MD Primary Care Provide r Reason for Visit * Reason Comments case management Encounter Details Date Type Department Care Team Description 09/12/2017 Modeling AnalystMedical Charge Entry Specialist Medicine [address] [address] Mariola Mariee RN [address] [place] [address] [place] [id number] COPD, severe (HCC)*;Balance problem due to labyrinthine [...] Assessment. Is this call for a hospital, intermediate or rehab facility discharge to home? No [...] nurseAndressa LPN. -confirmed pharmacy of choice as [facility] in [place]. A: Patient Centered Prioritized Goals: Patient will have a Rescue Kit in place. Exacerbations have been prevented, minimized or reduced in severity. Co-morbid conditions identified and managed. Patient will have pain well managed. Patient will have an AD completed and on file with PCP. Identified Barriers: Older than 70 years P: Modeling Analyst Interventions: Reinforce Self Management Action Plan established at previous visit Reinforced "call back instructions" if symptoms increase Reinforced sodium restriction related to dx of HTN Reinforced safety education / fall prevention Reinforced medication regimen - timing / dosing / purpose Explained/reinforced role of case maker. Encouraged to call with any [...] update plan of care, instructed to call Modeling Analyst or Primary Care Provider with change in symptoms or as needed before next follow-up, verbalizes understanding and agrees with plan. Mariola Mariee, RN Outpatient Modeling Analyst in this encounter Plan of Treatment Upcoming Encounters Date Type Specialty Care Team Description 09/16/2017 Imaging Radiology Mov, Tech Ultrasound [address] [place] [address] [place] [address] [phone] Dizziness* 01/09/2018 Office Visit Internal Medicine Yariel Cardoza MD [address] [place] [address] [place] [address] [phone] Health Maintenance Due Date Last Done Comments TETANUS EVERY 10 YEARS-TDAP (BOOSTRIX OR ADACEL) SUGGESTED IF NOT RECEIVED IN THE PAST. 05/03/2014 05/03/2004 *ADVANCE DIRECTIVE NOT ON FILE 01/08/2015 CKD PHOS USE SMARTSET 46752 09/18/2017 03/19/2017, 0 02/18/2016 BREAST CANCER SCREENING DISC USSION YEARLY AGES 40-75 10/08/2017 10/08/2016, 10/06/2015, 01/12/2004 CKD GFR USE SMARTSET 68304 10/18/201704/17, 03/19/2017, 02/10/2017, Additional history exists COLONOSCOPY-EVERY 3 YRS AGES 18-100 03/08/2018 03/08/2015 CKD LDL USE SMARTSET 62186 ( STAGE 3) [place] 42[address] (STAGE 4) 03/19/2018 03/19/2017, 09/27/2016, 02/18/2016, Additional history exists CKD URINE PROTEIN/CREATININE RATION OR URINE MICROALBUMIN YEARLY USE SMARTSET 53732 03/19/2018 03/19/2017, 02/09/2017, 02/18/2016 CKD HGB USE SMARTSET 25832 04/17/201804/17, 03/19/2017, 02/10/2017, Additional history exists DIABETES [...] Phone Address [facility] CLASSIC COMPLETE RX [id number] Medicare [phone] [facility] [place] [address] as of this encounter
--- OUTSIDE RECORDS SUMMARY | 2023-06-07 08:30 | External Medical Summary ---
Author Name Unknown Address [facility] [place] [address] Phone Organization K01:[place] [id number] Laboratory Report Ordering Provider Test Date Status TIMOTHY TYLER 03/19/2017 09:11:00 Final Observation Date Value Abnormality Reference Status BNP, Pro-hormone 03/19/2017 16:02 180 0-299 Final Performing Location [address] [address]
--- OUTSIDE RECORDS SUMMARY | 2023-06-07 08:30 | External Medical Summary | Summary of Care ---
Author Name Unknown Organization [place] [address] Phone Care Team Providers Care Plywood Patcher Name Role Phone Leanne Cardoza MD Primary Care Provide r Reason for Visit * Reason Comments eRx-Medication Refill Encounter Details Date Type Department Care Team Description 10/09/2017 Refill Internal Medicine [address] [place] [address] Josie Ryan PA-C [address] [place] [address] [place] [id number] Bilateral edema of lower extremity;Pulmonary hypertension Allergies Active Allergy Reactions Severity Noted Date [...] per week 255 g 0 09/27/2016 Active albuterol-ipratro pium (DUONEB) 2.5-0.5 MG/3ML nebulizer [...] WEIGHT GAIN 30 Tab 5 10/10/2017 Active furosemide (LASIX) 20 MG TabletIndications :Bilateral edema of lower extremity,Pulmona ry hypertension Take 1 Tab by mouth daily as needed (swelling). for fluid accumulation or weight gain 30 Tab 0 06/19/2017 10/09/19 18 Discontinued as of this encounter Active [...] Telephone Encounter - Leanne Cardoza MD - 10/10/2017 10:47 AM EST Signed Prescriptions: Disp Refills furosemide (LASIX) 20 MG Tablet 30 Tab 5 Sig: TAKE 1 TABLET BY MOUTH DAILY NEEDED (SWELLING). FOR FLUID ACCUMULATION OR WEIGHT GAIN Authorizing Provider: LEANNE CARDOZA * Telephone Encounter - Geneva Mercedes LPN - 10/10/2017 10:24 AM EST Pending Prescriptions: Disp Refills furosemide (LASIX) 20 MG Tablet [Pharmacy*30 Tab 5 Sig: TAKE 1 TABLET BY MOUTH DAILY NEEDED (SWELLING). FOR FLUID ACCUMULATION OR WEIGHT GAIN * Telephone Encounter - Geneva Mercedes LPN - 10/10/2017 10:23 AM EST Pending Prescriptions: Disp Refills furosemide (LASIX) 20 MG Tablet [Pharmacy*30 Tab 5 Sig: TAKE 1 TABLET BY MOUTH DAILY NEEDED (SWELLING). FOR FLUID ACCUMULATION OR WEIGHT GAIN Last Office Visit: 09/12/2017 Next Office Visit: 01/09/2018 Scheduled Provider(s): Leanne Cardoza MD Lr 9-13 in this encounter Plan of Treatment Upcoming Encounters Date Type Specialty Care Team Description 01/09/2018 Office Visit Internal Medicine Leanne Cardoza MD [address] [place] [address] [place] [address] [phone] Health Maintenance Due Date Last Done Comments TETANUS EVERY 10 YEARS-TDAP (BOOSTRIX OR ADACEL) SUGGESTED IF NOT RECEIVED IN THE PAST. 05/03/2014 05/03/2004 *ADVANCE DIRECTIVE NOT ON FILE 01/08/2015 BREAST CANCER SCREENING DISC USSION YEARLY AGES 40-75 10/08/2017 10/08/2016, 10/06/2015, 01/12/2004 COLONOSCOPY-EVERY 3 YRS AGES 18-100 03/08/2018 03/08/2015 CKD GFR USE SMARTSET 36236 03/13/201809/12, 04/17/2017, 03/19/2017, Additional history exists CKD PHOS USE SMARTSET 72470 03/13/201804/2017, 03/19/2017, 02/18/2016 CKD LDL USE SMARTSET 51469 ( STAGE 3) [place] [address] (STAGE 4) 03/19/2018 03/19/2017, 09/27/2016, 02/18/2016, Additional history exists CKD URINE PROTEIN/CREATININE RATION OR URINE MICROALBUMIN YEARLY USE SMARTSET 28199 03/19/2018 03/19/2017, 02/09/2017, 02/18/2016 CKD HGB USE SMARTSET 79329 09/12/201809/12, 04/17/2017, 03/19/2017, Additional history exists DIABETES [...] fileas of this encounter Visit Diagnoses Diagnosis Bilateral edema of lower ext remity Edema Pulmonary hypertension Other chronic pulmonary heart diseases in this encounter Insurance Payer Benefit Plan / Group Subscriber ID Type Phone Address [facility] CLASSIC COMPLETE RX [id number] Medicare [phone] [facility] [place] [address] as of this encounter
--- OUTSIDE RECORDS SUMMARY | 2023-06-07 08:30 | External Medical Summary | Summary of Care ---
Author Name Unknown Organization [place] [address] Phone Care Team Providers Care Truss Puller Helper Name Role Phone Yariel Cardoza MD Primary Care Provide r Reason for Visit * Reason Comments RECHECK Encounter Details Date Type Department Care Team Description 09/12/2017 Office Visit Internal Medicine [address] [address] Charo Michaels, RN PATIENT SERVICES [address] [place] [address] Dizziness*;HTN, goal below 140/90;Impaired fasting glucose;Lumbar degenerative disc disease;Pulmonary hypertension;COPD, severe (HCC) Allergies Active Allergy Reactions Severity [...] Vital Sign Reading Time Taken Blood Pressure 118/70 09/12/2017 9:22 AM EST Pulse 64 09/12/2017 9:22 AM EST Temperature 36.9 C (98.5 F) 09/12/2017 9 :22 AM EST Respiratory Rate 16 09/12/2017 9:22 AM EST Oxygen Saturation - - Inhaled Oxygen Concentration - - Weight 95.3 kg (210 lb) 09/12/2017 9:22 AM EST Height - - Body Mass Index 39.04 09/12/2017 9:22 AM EST in this encounter Instructions * Patient Instructions - Charo Michaels CRNP - 10/13/2017 8:03 PM EST BMI (Body Mass Index) is the number obtained by dividing a person's weight in kilograms by his or her height in meters squared. BMI is used in determining obesity. BMI is not used to determine a person's actual percentage of body fat, but it is a good tool to stock repairer weight in terms of what is healthy and unhealthy. It is used to identify adults at increased risk for developing weight related medical problems. Estimated body mass index is 39.04 kg/(m^2) as calculated from the following: Height as of 06/19/17: 1.562 m (5' 1.5"). Weight as of this encounter: 95.3 kg (210 lb). Obesity - BMI 35 kg/m2 to [...] message program is also available. Go to [employer] and seethe message under '[employer] News' for more information and enrollment. Patient [...] permitted. Keep Honest, Accurate Food logs: * www.Topple Track.PLUQ * www.iFlipd * If you bite it - write [...] using a pedometer * Make it fun! in this encounter Progress Notes * Charo Michaels CRNP - 09/13/2017 11:25 AM EST Labs stable, notify * Charo Michaels CRNP - 09/12/2017 10:00 AM EST Formatting of this note may be different from the original. Subjective: Jayla Hayes is a 72 year old female. Chief Complaint Patient presents with RECHECK HPI: Pt here with PMH as listed below who presents for recheck. BP stable. No increase in sob, stable, wears oxygen. No cp. Getting intermittent dizziness. Uses meclizine. Had negative CT head. She states her right ear is painful at times. No hearing change. Gets some chills. Weight stable. She denies other health complaints at this time. ROS: Denies syncope, [place], stiff neck, swollen glands, wheezing, myalgias, abdominal pain, n/v/d, blood in stool, dysuria, hematuria, urgency frequency, hesitancy with urination, or weakness, numbness,tingling or increase swelling in the extremities. Patient Active Problem List Diagnosis Code Slow [...] Current Outpatient Prescriptions Medication Sig Dispense Refill meclizine (ANTIVERT) 25 MG Tablet TAKE 1 TAB EVERY 6HRS NEEDED FOR DIZZINESS/VERTIGO 10 Tab 0 KLOR-CON 10 10 MEQ TBCR TAKE ONE TABLET BY MOUTH DAILY 30 Tab 5 budesonide (PULMICORT) 0.5 MG/2ML nebulizer solution INHALE ONE UNIT DOSE VIAL VIA NEBULIZER TWO TIMES A DAY. 3 hydrochlorothiazide (HYDRODIURIL) 25 MG Tablet TAKE ONE TABLET BY MOUTH DAILY 90 Tab 1 atorvaSTATin (LIPITOR) 20 MG Tablet Take 1 Tab by mouth daily. 90 Tab 1 furosemide (LASIX) 20 MG Tablet Take 1 Tab by mouth daily as needed (swelling). for fluid accumulation or weight gain 30 Tab 0 atenolol (TENORMIN) 50 MG Tablet Take 0.5 Tabs by mouth daily. 90 Tab 1 oxygen GAS Use 2 L/min(Oxygen) as directed continuous. 1 Each 0 albuterol (VENTOLIN HFA) 108 (90 BASE) MCG/ACT inhaler Inhale 2 Puffs by mouth every 4 hours asneeded for Wheezing. 3 Inhaler 1 albuterol-ipratropium (DUONEB) 2.5-0.5 MG/3ML nebulizer solution INHALE 3 MLS VIA NEBULIZER EVERY 4 HOURS NEEDED FOR COUGH, SHORTNESS OF BREATH OR WHEEZING. 120 Vial 2 polyethylene glycol 3350 (MIRALAX) 255 gram powder Take 17 g by mouth daily. Two-three times per week 255 g 0 camphor-menthol (SARNA) 0.5-0.5 % lotion Apply topically to affected area as needed for Itching. 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 Corey Faulkner MISCELLANEOUS ORDER 2001 [...] Relation Age of Onset Heart Disorder Father ID age 55 Heart Disorder Mother CAD, 84 in '02 Arthritis Mother in fingers Diabetes Brother half brother Stroke Aunt 80's Stroke Uncle 60's Social History Social History Marital status: Spouse [...] 4 in the area. 3 living children. OBJECTIVE: BP 118/70 | Pulse 64 | Temp (Src) 98.5 (Tympanic) | Resp 16 | Wt 196 lbs 2 oz (88.962kg) | BMI 36.46 kg/m | BSA 1.97 m PHYSICAL EXAM: General: alert, no distress, well nourished and cooperative Ears: External ears normal, Canals clear, TM's Normal Oropharynx: no exudate, no erythema, lips, buccal mucosa, and tongue normal and mucous membranes are moist Neck: supple, no adenopathy, no bruits Heart: regular rate & rhythm Lungs: chest symmetric with normal AP diameter, no chest deformities noted, normal respiratory rateand rhythm, lungs clear to auscultation Abdomen: abdomen soft, non-tender, normal bowel sounds and no masses or organomegaly Extremities: no edema, no skin discoloration Neuro Exam: alert & oriented x 3 with fluent speech, no focal motor/sensory deficits Skin: skin color, texture, turgor are normal ASSESSMENT/PLAN: R42 Dizziness (primary encounter diagnosis) Plan: Phosphorus Cbc/diff Compr metab panel Vitamin b12 Phosphorus Cbc/diff Compr metab panel Vitamin b12 Duplex carotid bilat I10 Htn, goal below 140/90 Plan: Cbc/diff Compr metab panel Cbc/diff Compr metab panel R73.01 Impaired fasting glucose M51.36 Lumbar degenerative disc disease I27.20 Pulmonary hypertension J44.9 Copd, severe (hcc) Chronic condition stable, continue present medication as prescribed. Follow-up as needed for worsening symptoms or as directed with pcp. SAMIR Guadalupe Patient counseling on weight management given. in this encounter Nursing Notes * Claribel Tovar LPN - 09/12/2017 10:00 AM EST 3 month recheck Dizziness persists. Wants right ear checked. Taking Meclizine. Right ear Hurts every now and then. Gets chills at times. in this encounter Plan of Treatment Upcoming Encounters Date Type Specialty Care Team Description 01/09/2018 Office Visit Internal Medicine Yariel Cardoza MD [address] [place] [address] [place] [address] Health Maintenance Due Date Last Done Comments TETANUS EVERY 10 YEARS-TDAP (BOOSTRIX OR ADACEL) SUGGESTED IF NOT RECEIVED IN THE PAST. 05/03/2014 05/03/2004 *ADVANCE DIRECTIVE NOT ON FILE 01/08/2015 BREAST CANCER SCREENING DISC USSION YEARLY AGES 40-75 10/08/2017 10/08/2016, 10/06/2015, 01/12/2004 COLONOSCOPY-EVERY 3 YRS AGES 18-100 03/08/2018 03/08/2015 CKD GFR USE SMARTSET 98056 03/13/201809/12, 04/17/2017, 03/19/2017, Additional history exists CKD PHOS USE SMARTSET 79176 03/13/2018 12/0 04/2017, 03/19/2017, 02/18/2016 CKD LDL USE SMARTSET 90331 ( STAGE 3) [place] [address] (STAGE 4) 03/19/2018 03/19/2017, 09/27/2016, 02/18/2016, Additional history exists CKD URINE PROTEIN/CREATININE RATION OR URINE MICROALBUMIN YEARLY USE SMARTSET 79382 03/19/2018 03/19/2017, 02/09/2017, 02/18/2016 CKD HGB USE SMARTSET 70677 09/12/201809/12, 04/17/2017, 03/19/2017, Additional history exists DIABETES [...] on fileas of this encounter Results * DUPLEX CAROTID BILAT (09/16/2017 3:34 PM) Specimen Performing Laborator y [facility] [address] [place] [address] Narrative VASCULAR LAB RESULTS DATE OF EXAM: September PRESENTING CONDITIONS: dizziness [facility] PHYSICIAN REPORT Carotid Artery Duplex Examination Immediately before proceeding with the vascular lab procedure reported below, the identity of the patient, the correct exam and the correct procedural site were verified. Woodson scale and color flow Doppler imaging was performed for evaluation of the right carotid artery. Duplex examination of the right carotid artery identifies atherosclerotic plaque at the carotid bifurcation. The plaque is echogenic and appears to have irregular surface. Color Doppler imaging was performed for evaluation of the right carotid bifurcation. Spectral analysis of the right internal carotid artery demonstrates peak systolic velocities of .70 meters per second. Maximum end diastolic velocities are .28 meters per second. Peak right common carotid velocity 2 cm proximal to the bifurcation is .70 meters per second. The right internal carotid to common carotid ratio is1.0. Woodson scale and color flow Doppler imaging was performed for the evaluation of the left carotid artery. Duplex examination of the left carotid artery identifies atherosclerotic plaque at the carotid bifurcation. The plaque is echogenic and appears to have irregular surface. Color Doppler imaging was performed for the evaluation of the left carotid bifurcation. Spectral analysis of the left internal carotid artery demonstrates peak systolic velocities of .92 meters per second. Maximum end diastolic velocities are .35 meters per second. Peak left common carotid velocity 2 cm proximal to the bifurcation is .75 meters per second. The left internal carotid to common carotid ratio is1.2. The right vertebral artery demonstrates antegrade flow. The left vertebral artery demonstrates antegrade flow. Impression: Right carotid artery duplex examination indicates evidence of <50% stenosis of the internal carotid artery. Left carotid artery duplex examination indicates evidence of <50% stenosis of the internal carotid artery. Authenticated By Authenticating DateAuthenticating TimeReading Providers(s) BRUCE TAYLOR MD 09-16-2017 17:08BRUCE TAYLOR MD Procedure Note Interface, Rad In - 09/16/2017 5:08 PM EST VASCULAR LAB RESULTS DATE OF EXAM: September PRESENTING CONDITIONS: dizziness [facility] PHYSICIAN REPORT Carotid Artery Duplex Examination Immediately before proceeding with the vascular lab procedure reportedbelow, the identity of the patient, the correct exam and the correct procedural site were verified. Woodson scale and color flow Doppler imaging was performed for evaluation ofthe right carotid artery. Duplex examination of the right carotid artery identifies atheroscleroticplaque at the carotid bifurcation. The plaque is echogenic and appears to have irregular surface. ColorDoppler imaging was performed for evaluation of the right carotid bifurcation. Spectral analysis of theright internal carotid artery demonstrates peak systolic velocities of .70 meters per second. Maximumend diastolic velocities are .28 meters per second. Peak right common carotid velocity 2 cm proximal to the bifurcation is.70 meters per second. The right internal carotid to common carotid ratio is1.0. Woodson scale and color flow Doppler imaging was performed for theevaluation of the left carotid artery. Duplex examination of the left carotid artery identifies atheroscleroticplaque at the carotid bifurcation. The plaque is echogenic and appears to have irregular surface. ColorDoppler imaging was performed for the evaluation of the left carotid bifurcation. Spectral analysis of the leftinternal carotid artery demonstrates peak systolic velocities of .92 meters per second. Maximumend diastolic velocities are .35 meters per second. Peak left common carotid velocity 2 cm proximal to the bifurcation is .75meters per second. The left internal carotid to common carotid ratio is1.2. The right vertebral artery demonstrates antegrade flow. The left vertebral artery demonstrates antegrade flow. Impression: Right carotid artery duplex examination indicates evidence of <50%stenosis of the internal carotid artery. Left carotid artery duplex examination indicates evidence of <50%stenosis of the internal carotid artery. Authenticated By Authenticating Date AuthenticatingTime Reading Providers(s) BRUCE TAYLOR MD 09-16-2017 17:08BRUCE TAYLOR MD * VITAMIN B12 (09/12/2017 10:17 AM) Component Value Ref Range VITAMIN B12 317 232 - 1245 pg/mL Specimen Performing Laborator y [facility] [address] [place] [address] * COMPR METAB PANEL (09/12/2017 10:17 AM) Component Value Ref Range BUN 18 6 - 20 mg/dL CREATININE 0.9 Comment: GFR should be used to assess renal function.Plasma/Serum creatinine may not be able to properly reflect renal function in some cases. 0.5 - 1.0 mg/dL SODIUM 144 135 - 146 mmol/L POTASSIUM 4.4 3.5 - 5.1 mmol/L CHLORIDE 102 98 - 107 mmol/L CO2 32 22 - 32 mmol/L ANION GAP 10 7 - 15 mmol/L GLUCOSE 84 70 - 120 mg/dL ALBUMIN 4.0 3.8 - 5.0 g/dL AST 16 10 - 35 U/L ALKALINE PHOSPHATASE 90 0 - 153 U/L BILIRUBIN, TOTAL 0.5 0 - 1.2 mg/dL CALCIUM 9.7 8.4 - 10.2 mg/dL PROTEIN 6.5 6.0 - 8.3 g/dL ALT 16 10 - 35 U/L E GLOM FILT RATE >60.0Comment:If zuleyka ent is , multiply estimated GFR by 1.159. >60 Specimen Performing Laborator y [facility] [address] [place] [address] * CBC/DIFF (09/12/2017 10:17 AM) Component Value Ref Range WBC 6.96 4.00 - 10.80 K/u L RBC 4.86 3.85 - 5.15 M/uL HGB 14.4 12.0 - 15.3 g/dL HCT 47.1(H) 36.0 - 45.2 % MCV 96.9 81.5 - 97.5 fL MCH 29.6 27.0 - 34.0 pg MCHC 30.6(L) 32.0 - 36.0 g/dL RDW 14.0 11.5 - 15.5 % PLATELET COUNT 188 140 - 400 K/uL MPV 9.7 6.6 - 11.1 fL NEUTS 68.4 40 - 75 % LYMPHS 18.2 18 - 42 % MONOS 11.1(H) 1 - 11 % EOS 1.9 0 - 6 % BASOS 0.4 0 - 2 % ABS. NEUTS 4.76 1.8 - 7.7 K/uL ABS. LYMPHS 1.27 1.0 - 4.8 K/uL ABS. MONOS 0.77 0.0 - 1.1 K/uL ABS. EOS 0.13 0.0 - 0.7 K/uL ABS. BASOS 0.03 0.0 - 0.2 K/uL Specimen Performing Laborator y [address] [address] * PHOSPHORUS (09/12/2017 10:17 AM) Component Value Ref Range PHOSPHORUS 3.2 2.5 - 4.8 mg/dL Specimen Performing Laborator y [facility] [address] [place] [address] in this encounter Visit Diagnoses Diagnosis Dizziness - Primary Dizziness and giddiness HTN, goal below 140/90 Unspecified essential hypertension Impaired fasting glucose Lumbar degenerative disc dis ease Degeneration of lumbar or lumbosacral intervertebral disc Pulmonary hypertension Other chronic pulmonary heart diseases COPD, severe (HCC) Chronic airway obstruction, not elsewhere classified in this encounter Insurance Payer Benefit Plan / Group Subscriber ID Type Phone Address [facility] GHP CLASSIC COMPLETE RX [id number] Medicare [phone] [place] [address] as of this encounter
--- OUTSIDE RECORDS SUMMARY | 2023-06-07 08:30 | External Medical Summary ---
Author Name Unknown Address [address] [place] [address] Phone Organization K01:[facility] [address] [place] [id number] Laboratory Report Ordering Provider Test Date Status LOLLY MEHTA 09/12/2017 10:17:00 Final Observation Date Value Abnormality Reference Status BUN 09/12/2017 23:26 18 6-20 Fin al Creatinine 09/12/2017 23:26 0.9 0.5-1.0 Fi nal Performing Location [facility] [address] [facility] [address]
--- OUTSIDE RECORDS SUMMARY | 2023-06-07 08:30 | External Medical Summary ---
Author Name Unknown Address [address] [place] [address] Phone Organization K01:[facility] [address] [id number] Laboratory Report Ordering Provider Test Date Status MIGUEL CHE 04/17/2017 10:53:00 Final Observation Date Value Abnormality Reference Status BUN 04/17/2017 22:18 14 6-20 Fin al Creatinine 04/17/2017 22:18 0.8 0.5-1.0 Fi nal Performing Location [facility] [address] [place] [id number]
--- OUTSIDE RECORDS SUMMARY | 2023-06-07 08:30 | External Medical Summary | Summary of Care ---
Author Name Unknown Organization [place] [address] Phone Care Team Providers Care Dress Operator Name Role Phone Yariel Cardoza MD Primary Care Provide r Reason for Visit * Reason Comments eRx-Medication Refill Encounter Details Date Type Department Care Team Description 08/30/2017 Refill Internal Medicine [address] [id number] Noemi Cortez PA-C [address] [place] [address] Allergies Active Allergy Reactions Severity [...] 1 06/06/2017 Active furosemide (LASIX) 20 MG TabletIndications :Bilateral edema of lower extremity,Pulmona ry hypertension Take 1 Tab by mouth daily as needed (swelling). for fluid accumulation or weight gain 30 Tab 0 06/19/2017 Active atorvaSTATin (LIPITOR) 20 MG TabletIndications :Dyslipidemia, [...] MOUTH DAILY 30 Tab 5 08/30/2017 Active KLOR-CON 10 10 MEQ TBCR TAKE 1 TAB BY MOUTH DAILY. 30 Tab 5 03/07/2017 08/30/20 17 Discontinued as of this encounter Active Problems [...] Internal Medicine Charo Michaels CRNP [address] [place] [address] [phone] 01/09/2018 Office Visit Internal Medicine Yariel Cardoza MD [address] [place] [address] [place] [address] [phone] Health Maintenance Due Date Last Done Comments TETANUS EVERY 10 YEARS-TDAP (BOOSTRIX OR ADACEL) SUGGESTED IF NOT RECEIVED IN THE PAST. 05/03/2014 05/03/2004 *ADVANCE DIRECTIVE NOT ON FILE 01/08/2015 CKD PHOS USE SMARTSET 52714 09/18/2017 03/19/2017, 0 02/18/2016 BREAST CANCER SCREENING DISC USSION YEARLY AGES 40-75 10/08/2017 10/08/2016, 10/06/2015, 01/12/2004 CKD GFR USE SMARTSET 39265 10/18/201704/17, 03/19/2017, 02/10/2017, Additional history exists COLONOSCOPY-EVERY 3 YRS AGES 18-100 03/08/2018 03/08/2015 CKD LDL USE SMARTSET 39717 ( STAGE 3) OR [address] (STAGE 4) 03/19/2018 03/19/2017, 09/27/2016, 02/18/2016, Additional history exists CKD URINE PROTEIN/CREATININE RATION OR URINE MICROALBUMIN YEARLY USE SMARTSET 67279 03/19/2018 03/19/2017, 02/09/2017, 02/18/2016 CKD HGB USE SMARTSET 74261 04/17/201804/17, 03/19/2017, 02/10/2017, Additional history exists DIABETES [...] ID Type Phone Address [facility] First To File [facility] CLASSIC COMPLETE RX [id number] Medicare [phone] [place] [address] as of this encounter
--- OUTSIDE RECORDS SUMMARY | 2023-06-07 08:30 | External Medical Summary | Summary of Care ---
Author Name Unknown Organization [place] [address] Phone Care Team Providers Care Neon Tube Bender Name Role Phone Yariel Cardoza MD Primary Care Provide r Reason for Visit * Reason Comments TEST RESULTS Encounter Details Date Type Department Care Team Description 09/23/2017 Telephone Internal Medicine [address] [address] Charo Michaels, SAMIR [address] [place] [address] TEST RESULTS Allergies Active Allergy Reactions Severity Noted Date [...] ([facility]) 07/20/2015 12/21/2015 ACQ ESOPHAG DIVERTICULUM 12/22/2004 [...] Telephone Encounter - Елена Brooks RN - 09/23/2017 8:53 AM EST Pt aware * Telephone Encounter - Елена Brooks RN - 09/23/2017 8:13 AM EST ----- Message from SAMIR Guadalupe sent at 09/22/2017 7:32 PM EST ----- No significant arotid stenosis, notify in this encounter Plan of Treatment Upcoming Encounters Date Type Specialty Care Team Description 01/09/2018 Office Visit Internal Medicine Yariel Cardoza MD [address] [place] [address] [place] [address] Health Maintenance Due Date Last Done Comments TETANUS EVERY 10 YEARS-TDAP (BOOSTRIX OR ADACEL) SUGGESTED IF NOT RECEIVED IN THE PAST. 05/03/2014 05/03/2004 *ADVANCE DIRECTIVE NOT ON FILE 01/08/2015 BREAST CANCER SCREENING DISC USSION YEARLY AGES 40-75 10/08/2017 10/08/2016, 10/06/2015, 01/12/2004 COLONOSCOPY-EVERY 3 YRS AGES 18-100 03/08/2018 03/08/2015 CKD GFR USE SMARTSET 26660 03/13/201809/12, 04/17/2017, 03/19/2017, Additional history exists CKD PHOS USE SMARTSET 19823 03/13/201804/2017, 03/19/2017, 02/18/2016 CKD LDL USE SMARTSET 24614 ( STAGE 3) [place] [address] (STAGE 4) 03/19/2018 03/19/2017, 09/27/2016, 02/18/2016, Additional history exists CKD URINE PROTEIN/CREATININE RATION OR URINE MICROALBUMIN YEARLY USE SMARTSET 05599 03/19/2018 03/19/2017, 02/09/2017, 02/18/2016 CKD HGB USE SMARTSET 96510 09/12/201809/12, 04/17/2017, 03/19/2017, Additional history exists DIABETES [...] / Group Subscriber ID Type Phone Address [facility] [employer] [facility] GHP CLASSIC COMPLETE RX [id number] Medicare [phone] [place] [phone] as of this encounter
--- OUTSIDE RECORDS SUMMARY | 2023-06-07 08:30 | External Medical Summary | Summary of Care ---
Author Name Unknown Organization [place] [address] Phone Care Team Providers Care Broom Stitcher Name Role Phone Yariel Cardoza MD Primary Care Provide r Reason for Visit * Reason Comments eRx-Medication Refill Encounter Details Date Type Department Care Team Description 2017 Refill Internal Medicine [address] [address] Yariel Cardoza MD [address] [place] [address] [place] [address] Allergies Active Allergy Reactions Severity Noted [...] MOUTH DAILY 30 Tab 5 08/30/2017 Active as of this encounter Active Problems [...] Internal Medicine Charo Michaels CRNP [address] [place] [address] [phone] 01/09/2018 Office Visit Internal Medicine Yariel Cardoza MD [address] [place] [address] [place] [address] [phone] Health Maintenance Due Date Last Done Comments TETANUS EVERY 10 YEARS-TDAP (BOOSTRIX OR ADACEL) SUGGESTED IF NOT RECEIVED IN THE PAST. 05/03/2014 05/03/2004 *ADVANCE DIRECTIVE NOT ON FILE 01/08/2015 CKD PHOS USE SMARTSET 47471 09/18/2017 03/19/2017, 0 02/18/2016 BREAST CANCER SCREENING DISC USSION YEARLY AGES 40-75 10/08/2017 10/08/2016, 10/06/2015, 01/12/2004 CKD GFR USE SMARTSET 66323 10/18/201704/17, 03/19/2017, 02/10/2017, Additional history exists COLONOSCOPY-EVERY 3 YRS AGES 18-100 03/08/2018 03/08/2015 CKD LDL USE SMARTSET 08347 ( STAGE 3) [place] [address] (STAGE 4) 03/19/2018 03/19/2017, 09/27/2016, 02/18/2016, Additional history exists CKD URINE PROTEIN/CREATININE RATION OR URINE MICROALBUMIN YEARLY USE SMARTSET 94597 03/19/2018 03/19/2017, 02/09/2017, 02/18/2016 CKD HGB USE SMARTSET 84318 04/17/201804/17, 03/19/2017, 02/10/2017, Additional history exists DIABETES [...] / Group Subscriber ID Type Phone Address [facility] CLASSIC COMPLETE RX [id number] Medicare [phone] [address] [facility] [place] [address] as of this encounter
--- OUTSIDE RECORDS SUMMARY | 2023-06-07 08:30 | External Medical Summary | Summary of Care ---
Author Name Unknown Organization [place] [address] Phone Care Team Providers Care Cart Pusher Name Role Phone Yariel Cardoza MD Primary Care Provide r Encounter Details Date Type Department Care Team Description 08/14/2017 Orders Only Internal Medicine [address] [address] Yariel Cardoza MD [address] [place] [address] [place] [address] Allergies Active Allergy Reactions Severity [...] AFFECTED AREA TWICE DAILY 0 06/20/2017 Active ciprofloxacin-dexam ethasone (CIPRO-DEX) 0.3-0.1 % otic suspensionIndicatio ns:Other infective acute otitis externa of right ear Administer 3 Drops to the right ear 2 times a day for 7 days. 1 Bottle 1 08/09/2017 08/16/2017 Active PredniSONE (DELTASONE) 20 MG TabletIndications:V iral URI Take 2 Tabs by mouth daily for 5 days. 10 Tab 0 08/09/2017 08/14/2017 Active as of this encounter Active Problems [...] Internal Medicine Charo Michaels CRNP [address] [place] [address] [phone] 01/09/2018 Office Visit Internal Medicine Yariel Cardoza MD [address] [place] [address] [place] [id number] Pending Results Name Priority Associated Diagnoses Date/Ti me CHEST 1 VIEW Routine 08/10/2017 12:0 0 AM EDT Health Maintenance Due Date Last Done Comments TETANUS EVERY 10 YEARS-TDAP (BOOSTRIX OR ADACEL) SUGGESTED IF NOT RECEIVED IN THE PAST. 05/03/2014 05/03/2004 *ADVANCE DIRECTIVE NOT ON FILE 01/08/2015 CKD PHOS USE SMARTSET 33079 09/18/2017 03/19/2017, 0 02/18/2016 BREAST CANCER SCREENING DISC USSION YEARLY AGES 40-75 10/08/2017 10/08/2016, 10/06/2015, 01/12/2004 CKD GFR USE SMARTSET 75812 10/18/201704/17, 03/19/2017, 02/10/2017, Additional history exists COLONOSCOPY-EVERY 3 YRS AGES 18-100 03/08/2018 03/08/2015 CKD LDL USE SMARTSET 24464 ( STAGE 3) [place] [address] (STAGE 4) 03/19/2018 03/19/2017, 09/27/2016, 02/18/2016, Additional history exists CKD URINE PROTEIN/CREATININE RATION OR URINE MICROALBUMIN YEARLY USE SMARTSET 13377 03/19/2018 03/19/2017, 02/09/2017, 02/18/2016 CKD HGB USE SMARTSET 63275 04/17/201804/17, 03/19/2017, 02/10/2017, Additional history exists DIABETES [...] / Group Subscriber ID Type Phone Address [facility] [employer] [facility] GHP CLASSIC COMPLETE RX [id number] Medicare [phone] [place] [phone] as of this encounter
--- OUTSIDE RECORDS SUMMARY | 2023-06-07 08:30 | External Medical Summary | Summary of Care ---
Author Name Unknown Organization [place] [address] Phone Care Team Providers Care Technical Sourcing Recruiter Name Role Phone Yariel Cardoza MD Primary Care Provide r Reason for Visit * Reason Comments eRx-Medication Refill Encounter Details Date Type Department Care Team Description 09/09/2017 Refill Internal Medicine [address] [address] Yariel Cardoza MD [address] [place] [address] [place] [address] Allergies Active Allergy Reactions Severity [...] encounter Miscellaneous Notes * Telephone Encounter - Antonietta Arreguin LPN - 09/10/2017 4:20 PM EST Pending Prescriptions: Disp Refills meclizine (ANTIVERT) 25 MG Tablet [Pharma*10 Tab 0 Sig: TAKE 1 TAB EVERY 6HRS NEEDED FOR DIZZINESS/VERTIGO * Telephone Encounter - Antonietta Arreguin LPN - 09/10/2017 4:18 PM EST Pending Prescriptions: Disp Refills meclizine (ANTIVERT) 25 MG Tablet [Pharma*10 Tab 0 Sig: TAKE 1 TAB EVERY 6HRS NEEDED FOR DIZZINESS/VERTIGO Last Office Visit: 08/09/2017 Next Office Visit: 09/12/2017 Scheduled Provider(s): SAMIR Guadalupe If no future appointments scheduled, and last appointment is greater than a year ago, please schedule patient for a follow-up appointment Last date the medication was ordered: Not on current med list Phone number(s): [phone] (home) Labs: ALT(U/L) Grisel Dt/Tm Resulted Value Status 04/17/17 10:53A 04/17/17 21 FINAL CREATININE(mg/dL) Grisel Dt/Tm Resulted Value Status 04/17/17 10:53A 04/17/17 0.8 FINAL POTASSIUM(mmol/L) Grisel Dt/Tm Resulted Value Status 04/17/17 10:53A 04/17/17 3.7 FINAL TSH(uIU/mL) Grisel Dt/Tm Resulted Value Status 04/17/17 10:53A 04/17/17 0.69 FINAL LDL (CALCULATED)(mg/dL) Grisel Dt/Tm Resulted Value Status 03/19/17 8:05A 03/19/17 50 FINAL Hemoglobin AIC Results: HEMOGLOBIN, A1C(%) Grisel Dt/Tm Resulted Value Status 03/19/17 8:05A 03/19/17 5.7 FINAL in this encounter Plan of Treatment Upcoming Encounters Date Type Specialty Care Team Description 09/12/2017 Office Visit Internal Medicine Charo Michaels CRNP [address] [place] [address] [phone] 01/09/2018 Office Visit Internal Medicine Yariel Cardoza MD [address] [place] [address] [place] [address] Health Maintenance Due Date Last Done Comments TETANUS EVERY 10 YEARS-TDAP (BOOSTRIX OR ADACEL) SUGGESTED IF NOT RECEIVED IN THE PAST. 05/03/2014 05/03/2004 *ADVANCE DIRECTIVE NOT ON FILE 01/08/2015 CKD PHOS USE SMARTSET 41879 09/18/2017 03/19/2017, 0 02/18/2016 BREAST CANCER SCREENING DISC USSION YEARLY AGES 40-75 10/08/2017 10/08/2016, 10/06/2015, 01/12/2004 CKD GFR USE SMARTSET 70994 10/18/201704/17, 03/19/2017, 02/10/2017, Additional history exists COLONOSCOPY-EVERY 3 YRS AGES 18-100 03/08/2018 03/08/2015 CKD LDL USE SMARTSET 02274 ( STAGE 3) [place] [address] (STAGE 4) 03/19/2018 03/19/2017, 09/27/2016, 02/18/2016, Additional history exists CKD URINE PROTEIN/CREATININE RATION OR URINE MICROALBUMIN YEARLY USE SMARTSET 13152 03/19/2018 03/19/2017, 02/09/2017, 02/18/2016 CKD HGB USE SMARTSET 99188 04/17/201804/17, 03/19/2017, 02/10/2017, Additional history exists DIABETES [...] / Group Subscriber ID Type Phone Address [facility] [employer] [facility] GHP CLASSIC COMPLETE RX [id number] Medicare [phone] [facility] [place] [address] as of this encounter
--- OUTSIDE RECORDS SUMMARY | 2023-06-07 08:30 | External Medical Summary ---
Author Name Unknown Address [address] [place] [address] [place] [address] Phone Organization [id number]:[address] [place] [address] Laboratory Report Ordering Provider Test Date Status LOLLY MEHTA SAMIR 09/12/2017 10:17:00 Final Observation Date Value Abnormality Reference Status WBC, Total 09/12/2017 11:08 6.96 4.00-10.80 F inal RBC 09/12/2017 11:08 4.86 3.85-5.15 Fin al Hemoglobin 09/12/2017 11:08 14.4 12.0-15.3 Fi nal HCT 09/12/2017 11:08 47.1 Above high normal 36.0- 45.2 Final MCV 09/12/2017 11:08 96.9 81.5-97.5 Fin al MCH 09/12/2017 11:08 29.6 27.0-34.0 Fin al MCHC 09/12/2017 11:08 30.6 Below low normal 32.0-3 6.0 Final RDW 09/12/2017 11:08 14.0 11.5-15.5 Fin al Platelets 09/12/2017 11:08 188 140-400 Fin al MPV 09/12/2017 11:08 9.7 6.6-11.1 Fin al Segs 09/12/2017 11:08 68.4 40-75 Fin al Lymphs % 09/12/2017 11:08 18.2 18-42 Fin al Monos 09/12/2017 11:08 11.1 Above high normal 1-11 Final Eosinophils 09/12/2017 11:08 1.9 0-6 F inal Basos 09/12/2017 11:08 0.4 0-2 Fin al Absolute Segs 09/12/2017 11:08 4.76 1.8-7.7 Final Lymphs, absolute 09/12/2017 11:08 1.27 1.0-4. 8 Final Monos, Abs 09/12/2017 11:08 0.77 0.0-1.1 Fi nal Eos, Abs 09/12/2017 11:08 0.13 0.0-0.7 Fin al Agustinos, Abs 09/12/2017 11:08 0.03 0.0-0.2 Fi nal Performing Location [address] [place] [address]
--- OUTSIDE RECORDS SUMMARY | 2023-06-07 08:30 | External Medical Summary ---
Author Name Unknown Address [address] [place] [address] Phone Organization K01:[facility] [address] [place] [id number] Laboratory Report Ordering Provider Test Date Status MIGUEL CHE 04/17/2017 10:53:00 Final Observation Date Value Abnormality Reference Status TSH 04/17/2017 22:44 0.69 0.27-4.2 Fin al T4, Free 04/17/2017 22:44 NOT APPLICABLE 0.9-1.7 Final Performing Location [facility] [address] [facility] [address]
--- OUTSIDE RECORDS SUMMARY | 2023-06-07 08:31 | External Medical Summary ---
Author Name Unknown Address [address] [place] [address] [place] [address] Phone Organization K08:[address] [place] [address] Laboratory Report Ordering Provider Test Date Status SONI BENITO MD 09/27/2016 08:51:00 Final Obs # Observation Date Value Abnormality Reference Status Performing Location 0 Fasting status - Reported 09/27/2016 08:55 [address] [place] [address] 1 Triglyceride 09/27/2016 14:11 103 <200 Final
--- OUTSIDE RECORDS SUMMARY | 2023-06-07 08:31 | External Medical Summary ---
Author Name Unknown Address [address] [place] [address] [place] [address] Phone Organization K08:[address] [place] [address] Laboratory Report Ordering Provider Test Date Status SONI BENITO MD [id number] Final Obs # Observation Date Value Abnormality Reference Status Performing Location 0 hours fasting 507911155796 [address] [place] [address] 1 Triglyceride 817876063329 187 <[address] [place] [address]
--- OUTSIDE RECORDS SUMMARY | 2023-06-07 08:31 | External Medical Summary ---
Author Name Unknown Address [address] [place] [address] [place] [address] Phone Organization K08:[address] [place] [address] Laboratory Report Ordering Provider Test Date Status SONI BENITO 03/19/2017 08:05:00 Final Observation Date Value Abnormality Reference Status Hemoglobin 03/19/2017 08:33 14.4 12.0-15.3 Fi nal Performing Location [address] [place] [address]
--- OUTSIDE RECORDS SUMMARY | 2023-06-07 08:31 | External Medical Summary ---
Author Name Unknown Address [address] [place] [phone] Phone Organization K01:[facility] [address] [place] [id number] Laboratory Report Ordering Provider Test Date Status SONI BENITO MD [id number] Final Obs # Observation Date Value Abnormality Reference Status Performing Location 0 Hemoglobin [id number] 14.9 12.0-15.3 Final [facility] [address] [facility] [address]
--- OUTSIDE RECORDS SUMMARY | 2023-06-07 08:31 | External Medical Summary ---
Author Name Unknown Address [address] [place] [phone] Phone Organization K01:[facility] [address] [place] [address]24422 Laboratory Report Ordering Provider Test Date Status SONI BENITO MD [id number] Final Obs # Observation Date Value Abnormality Reference Status Performing Location 0 BUN [id number] 25 Above high normal 6-[address] [facility] [address] [facility] [address] 1 Creatinine 835211637271 0.8 0.5-1.0 [facility] [address] [facility] [address]
--- OUTSIDE RECORDS SUMMARY | 2023-06-07 08:31 | External Medical Summary ---
Author Name Unknown Address [address] [place] [phone] Phone Organization K01:[facility] [address] [place] [address] Laboratory Report Ordering Provider Test Date Status SONI BENITO MD [id number] Final Obs # Observation Date Value Abnormality Reference Status Performing Location 0 Protein, Urine 712238227221 [address] [facility] [address] [facility] [address] 1 Creatinine, Urine 098708307423 153 Final [facility] [address] [facility] [address] 2 Protein / Creatinine, Urine 520475137445 0.11 <0.15 [facility] [address] [facility] [address]
--- OUTSIDE RECORDS SUMMARY | 2023-06-07 08:31 | External Medical Summary ---
Author Name Unknown Address [address] [facility] [place] [address] Phone Organization K01:[facility] [address] [place] [id number] Laboratory Report Ordering Provider Test Date Status SONI BENITO 03/19/2017 08:05:00 Final Observation Date Value Abnormality Reference Status Protein, Urine 03/19/2017 15:52 13 Final Creatinine [Moles/volume] in Urine 03/19/2017 15:52 168 Final Protein/Creatinine [Ratio] i n Urine 03/19/2017 15:52 77 <150 Final Performing Location [facility] [address] [facility] [address]
--- OUTSIDE RECORDS SUMMARY | 2023-06-07 08:31 | External Medical Summary ---
Author Name Unknown Address [facility] [place] [address] Phone Organization K01:[facility] [address] [place] [address]122 Laboratory Report Ordering Provider Test Date Status JIGNACHANDLERKAREN 03/19/2017 08:05:00 Final Observation Date Value Abnormality Reference Status HbA1C 03/19/2017 15:46 5.7 4.0-6.4 Fin al Performing Location [facility] [address] [facility] [address]
--- OUTSIDE RECORDS SUMMARY | 2023-06-07 08:31 | External Medical Summary ---
Author Name Unknown Address [address] [place] [address] [place] [address] Phone Organization K08:[address] [place] [address] Laboratory Report Ordering Provider Test Date Status SONI BENITO 03/19/2017 08:05:00 Final Observation Date Value Abnormality Reference Status Fasting status - Reported 03/19/2017 08:09 12 Final Triglyceride 03/19/2017 16:03 102 <200 Final Performing Location [address] [place] [address]
--- OUTSIDE RECORDS SUMMARY | 2023-06-07 08:31 | External Medical Summary ---
Author Name Unknown Address [address] [place] [phone] Phone Organization K01:[facility] [address] [facility] [address] Laboratory Report Ordering Provider Test Date Status SONI BENITO MD 09/27/2016 08:51:00 Final Obs # Observation Date Value Abnormality Reference Status Performing Location 0 BUN 09/27/2016 14:11 16 6-20 Final [facility] [address] [facility] [address] 1 Creatinine 09/27/2016 14:11 0.9 0.5-1.0 Final
--- OUTSIDE RECORDS SUMMARY | 2023-06-07 08:31 | External Medical Summary ---
Author Name Unknown Address [address] [place] [phone] Phone Organization K01:[facility] [address] [place] [id number] Laboratory Report Ordering Provider Test Date Status SONI BENITO MD [id number] Final Obs # Observation Date Value Abnormality Reference Status Performing Location 0 BUN 590141678370 16 6-20 Final [facility] [address] [facility] [address] 1 Creatinine 242946254353 1.0 0.5-1.0 [facility] [address] [facility] [address]
--- OUTSIDE RECORDS SUMMARY | 2023-06-07 08:31 | External Medical Summary ---
Author Name Unknown Address [facility] [address] [place] [phone] Phone Organization K01:[facility] [address] [place] [id number] Laboratory Report Ordering Provider Test Date Status SONI BENITO 03/19/2017 08:05:00 Final Observation Date Value Abnormality Reference Status Phosphate 03/19/2017 16:03 3.2 2.5-4.8 Fin al Performing Location [address] [address]
--- OUTSIDE RECORDS SUMMARY | 2023-06-07 08:31 | External Medical Summary ---
Author Name Unknown Address [address] [place] [address] Phone Organization K01:[facility] [address] [place] [address] Laboratory Report Ordering Provider Test Date Status JIGNASONI 03/19/2017 08:05:00 Final Observation Date Value Abnormality Reference Status BUN 03/19/2017 16:03 13 6-20 Fin al Creatinine 03/19/2017 16:03 0.8 0.5-1.0 Fi nal Performing Location [facility] [address] [place] [address]
--- OUTSIDE RECORDS SUMMARY | 2023-06-07 08:31 | External Medical Summary ---
Author Name Unknown Address [address] [place] [address] Phone Organization K01:[facility] [address] [place] 7796222 Laboratory Report Ordering Provider Test Date Status VALERIE MCDANIEL [id number] Final Obs # Observation Date Value Abnormality Reference Status Performing Location 0 specimen [id number] FURUNCLE LEFT LABIA SWAB Final [facility] [address] [facility] [address] 1 result [id number] MODERATE GROWTH NORMAL SKIN ASTRID Final [facility] [address] [facility] [address] 2 report status [id number] 12/08/2015 FINAL Final [facility] [address] [facility] [address]
--- OUTSIDE RECORDS SUMMARY | 2023-06-07 08:31 | External Medical Summary ---
Author Name Unknown Address [address] [place] [address] [place] [address] Phone Organization K08:[address] [place] [address] Laboratory Report Ordering Provider Test Date Status SONI BENITO MD [id number] Final Obs # Observation Date Value Abnormality Reference Status Performing Location 0 hours fasting 241065874294 [address] [place] [address] 1 Triglyceride 025010319485 93 <[address] [place] [address]
--- OUTSIDE RECORDS SUMMARY | 2023-06-07 08:31 | External Medical Summary ---
Author Name Unknown Address [facility] [address] [place] [id number] Phone Organization K01:[place] [address] [address] [place] [address] Laboratory Report Ordering Provider Test Date Status SONI BENITO MD 06/19/2016 15:29:00 Final Obs # Observation Date Value Abnormality Reference Status Performing Location 0 TSH 6 23:02 1.57 0.27-4.2 Final [place] [address] [address] [facility] [address] 1 T4, Free 6 23:02 NOT APPLICABLE 0.9-1.7 Final
--- OUTSIDE RECORDS SUMMARY | 2023-06-07 08:31 | External Medical Summary ---
Author Name Unknown Address [address] [place] [phone] Phone Organization K01:[facility] [address] [place] [id number] Laboratory Report Ordering Provider Test Date Status SONI BENITO MD [id number] Final Obs # Observation Date Value Abnormality Reference Status Performing Location 0 Phosphate [id number] 3.8 2.5-4.8 Final [facility] [address] [facility] [address]
== END 2023-06-06 19:50 | disposition home or self-care (01) ==
LOC: ED 09:00 → 2N 09:00 → SUATTDRO 14:33 → 2N 18:12

== ENCOUNTER 2023-11-24 17:18 | Inpatient (IN) ==
--- NOTE | 2023-11-24 17:30 | ED Triage Note ---
Date of Service November 24, 2023 Provider in Triage Author: Chyna Elmore History of Present Illness This patient was briefly evaluated while in triage. An abbreviated physical exam was performed. This patient is a 78-year-old Female who presents to the ED for evaluation of productive cough and sob x 2 weeks. She states her oxygen level has been dropping to 80. She has a history of COPD and wears 2L of oxygen at night but normally does not wear oxygen during the day. She has been wearing the oxygen during the day recently because of her symptoms. She states her oxygen is dropping with small amounts of walking. Physical Exam VITALS: Vitals are noted on the nurse's note and reviewed by myself. GENERAL: This is an 78-year-old female, sitting upright in a wheelchair. SKIN: The skin was without rashes. HEART: Regular rate and rhythm without murmurs gallops or rubs. LUNGS: Expiratory wheezes throughout. NEURO: Patient was alert and oriented to person place and time. Initial orders for labs and / or imaging were placed and patient was placed in the waiting area until a bed is available. Please see further documentation for the full ED course.
[2023-11-24] MEDS: ALBUT/IPRATROP 3MG/0.5MG NEB 3 ML VIAL NEB STA (17:36)
[2023-11-24 18:01] LABS: Basophils # (auto) 0.05 K/uL (0.00-0.20); Basophils % (auto) 0.6 %; Eosinophils # (auto) 0.18 K/uL (0.00-0.50); Eosinophils % (auto) 2.2 %; Hematocrit (blood only) 47.1 % (37.0-47.0); Hemoglobin 14.8 g/dl (12.0-16.0); Immature Granulocytes # (auto) 0.04 K/uL (0.01-0.20); Immature Granulocytes % (auto) 0.5 %; Lymphocytes # (auto) 1.72 K/uL (1.20-3.40); Lymphocytes % (auto) 20.5 %; Mean Corpuscular Hemoglobin 29.4 pg (25.0-34.0); Mean Corpuscular Hgb Conc 31.4 g/dL (32.0-36.0); Mean Corpuscular Volume 93.6 fL (80.0-100.0); Monocytes # (auto) 0.91 K/uL (0.11-0.59); Monocytes % (auto) 10.9 %; Neutrophils # (auto) 5.47 K/uL (1.40-6.50); Neutrophils % (auto) 65.3 %; Platelet Count 206 K/uL (130-400); RDW Coefficient of Variation 14.1 % (11.5-14.5); RDW Standard Deviation 47.7 fL (36.4-46.3); Red Blood Count 5.03 M/uL (4.20-5.40); White Blood Count 8.37 K/ul (4.8-10.8)
--- NOTE | 2023-11-24 18:07 | XRay Report ---
XR chest 1V portable CLINICAL HISTORY: Cough, shortness of breath. COMPARISON STUDY: Chest radiograph and chest CT June 05, 2023. FINDINGS: Lung volumes are normal. Lungs are clear. There is no pneumothorax or pleural effusion. Car diomegaly is unchanged. Mediastinal contours are normal. There is no evidence for pulmonary edema. IMPRESSION: No acute cardiopulmonary findings. No change in appearance of the chest. ACT 112: Negative or not required by law. Electronically signed by: João Villatoro M.D. 11/24/2023 6:06 PM
[2023-11-24 18:13] LABS: Alanine Aminotransferase 23 U/L (7-52); Albumin Globulin Ratio 1.3 (0.9-2); Alkaline Phosphatase 124 U/L (34-104); Anion Gap 7 (3-11); Aspartate Aminotransferase 22 U/L (13-39); Bilirubin,Total 0.5 mg/dl (0.2-1.0); Blood Urea Nitrogen 20 mg/dl (6-23); Calcium 9.6 mg/dl (8.6-10.3); Carbon Dioxide 30 mmol/L (21-32); Chloride 103 mmol/L (98-107); Est GFR (African American) 80.7 ml/min; Est GFR (Non-African American) 69.6 ml/min; Glucose 94 mg/dl (70-99(Fasting)); Potassium 4.1 mmol/L (3.5-5.1); Sodium 140 mmol/L (136-145)
[2023-11-24 18:30] LABS: Adenovirus PCR Not Detected (NotDetected); Bordetella parapertussis PCR Not Detected (NotDetected); Bordetella pertussis PCR Not Detected (NotDetected); Chlamydia pneumoniae PCR Not Detected (NotDetected); Coronavirus 229E PCR Not Detected (NotDetected); Coronavirus CoV-2 (COVID19)PCR Not Detected (NotDetected); Coronavirus HKU1 PCR Not Detected (NotDetected); Coronavirus NL63 PCR Not Detected (NotDetected); Coronavirus OC43PCR Not Detected (NotDetected); Human Metapneumovirus PCR Not Detected (NotDetected); Influenza A PCR Not Detected (NotDetected); Influenza B PCR Not Detected (NotDetected); Mycoplasma pneumoniae PCR Not Detected (NotDetected); Parainfluenza Virus 1 PCR Not Detected (NotDetected); Parainfluenza Virus 2 PCR Not Detected (NotDetected); Parainfluenza Virus 3 PCR Not Detected (NotDetected); Parainfluenza Virus 4 PCR Not Detected (NotDetected); Respiratory Syncytial VirusPCR Not Detected (NotDetected); Rhinovirus/Enterovirus PCR Not Detected (NotDetected)
[2023-11-24 18:43] LABS: Magnesium 2.2 mg/dl (1.7-2.4)
[2023-11-24] MEDS: diphenhydrAMINE 50 MG/ML VIAL IV STA (19:47)
[2023-11-24] MEDS: methylPREDNISolone 125 MG/2 ML VIAL IV STA (19:47)
--- NOTE | 2023-11-24 19:51 | Emergency Department Note ---
Impression & Plan Acute dyspnea ED Provider Note HISTORY OF PRESENT ILLNESS: Patient is an 78-year-old female presenting with shortness of breath and hypoxia. Patient reports that she only wears 2 L nasal cannula at nighttime. She reports in the last week she has been having to wear her oxygen throughout the day because she becomes profoundly short of breath with any sort of exertion and her oxygen levels have been down in the 80s. She reports that today she went into her kitchen to get a snack and then walked back to her recliner and was very short of breath. She checked her oxygen level on a pulse ox and noted it to be 80%. She started herself back on her nasal cannula. Reports she has had a cough productive of a white-yellow sputum for the last 2 weeks. Denies any recent sick contact exposures. Denies any fevers. Denies any recent antibiotic or steroid use. She is on Plavix daily for history of TIAs. She denies any DVT or PE history. Denies any history of cardiac stents ROS: as above PHYSICAL EXAM: Constitutional: Patient appears in no acute distress. HENT: Head: Normocephalic and atraumatic. Eyes: EOMI, PERRL Mouth/Throat: Mucous membranes moist. Neck: Trachea midline. Neck supple. Cardiovascular: RRR, No murmurs, rubs or gallops. Intact distal pulses. Pulmonary/Chest: No respiratory distress. Breath sounds clear and equal bilaterally. No wheezes or rales. Abdominal: Abdomen soft, no tenderness, rebound or guarding. Musculoskeletal: No edema, tenderness or deformity noted. Skin: Warm and dry. No rash, erythema, pallor or cyanosis Psychiatric: Appropriate mood and affect for situation. Neurological: Alert and keenly responsive. CN II-XII grossly intact, moving all extremities equally and fully. MDM: - Vitals signs showed borderline hypoxic - History obtained via patient. Patient presents with shortness of breath and hypoxia. Patient reportedly wears 2 L nasal cannula at baseline at nighttime. Reports that last week she has been having progressively worsening shortness of breath with any sort of exertion during the day. Reports she got up to get a snack in her kitchen today and was very short of breath when she went back to her chair and she took her pulse ox and noted to be 80%. Reports a cough productive of yellow-white sputum in the last 2 weeks. Denies any fevers. Denies any antibiotic use. Denies any DVT or PE history. She is on Plavix for history of TIAs - Chronic conditions affecting care: COPD; TIA; HLD; HTN - Differential diagnoses include, but are not limited to: Congestive heart failure; acute coronary syndrome; COPD/asthma exacerbation; pulmonary edema; pulmonary embolism; pneumonia; pneumothorax; viral syndrome - Order placed for continuous cardiac monitoring. At this time, monitor showed rate of 64 bpm with normal sinus rhythm, per my interpretation. - External medical records reviewed. PCP note dated 08/26/2023 was reviewed.. Patient follows in their clinic for her hyperlipidemia and COPD. She also follows with pulmonology for her COPD - EKG interpreted by myself showed normal sinus rhythm. Rate 72 bpm. QT 396. No acute ischemic changes - Laboratory workup interpreted by myself showed normal WBC; stable electrolytes; normal troponin; normal BNP - CXR negative for pneumonia, per my interpretation - Patient was given duoneb treatment per protocols. - Viral respiratory panel negative - Patient noted to have hives with contrast, so given 60 mg IV solumedrol and 25 mg IV benadryl for contrast pre-treatment. - CT PE negative. - Patient expresses concern about her worsening shortness of breath and hypoxia at home. - Discussion was had with healthcare business analyst about patient's case and need for admission. - Hospitalist consulted for admission - Patient admitted to [facility] for further evaluation and management. ASSESSMENT AND PLAN: Diagnosis: acute dyspnea Plan: admit Past Med/Surg History Medical History (Updated 11/24/23 @ 21:34 by Anand Dunbar MD) Hypertension History of intestinal obstruction History of diverticulitis Chronic respiratory failure with hypoxia On anticoagulant therapy plavix daily Transient ischemic attack (TIA) (~09/18/20) per pt had mini stroke and started on plavix daily On home oxygen therapy 2L N/C at hs and prn History of COVID-19 diagnosed 08/2020 @ [facility]--cough, headache, fatigue--no issues now Vertigo Dysconjugate gaze Hypomagnesemia Osteoarthritis Anxiety and depression Sleep apnea O2 2L HS Multiple pulmonary nodules Obstructive sleep apnea of adult no device, uses O2 Urge incontinence of urine Fibromyalgia Kidney stones HX Chronic obstructive pulmonary disease nebulizer/inhalers daily and prn///2L n/c at HS/PRN GERD (gastroesophageal reflux disease) Dyslipidemia IBS (irritable bowel syndrome) Surgical History History of cystoscopy (~07/24/19) History of bunionectomy RT History of surgical removal of right nipple History of cataract surgery RT/LEFT History of ureter stent History of right breast biopsy x2--benign History of dilatation and curettage History of removal of cyst left hand History of colonoscopy History of cholecystectomy Lap cholecystectomy: 06/04/16: Grade view 2, MAC#3, ETT 7.0 at [facility] Status post biopsy of thyroid gland benign History of tooth extraction all teeth H/O esophagogastroduodenoscopy "repair zenkers diverticulum" History of bilateral breast reduction surgery History of tonsillectomy and adenoidectomy History of total hysterectomy Family History Brother Family history of diabetes mellitus Other No family history of adverse response to anesthesia Denies family history of Diabetes Crohn's disease Colorectal cancer Ulcerative colitis Stroke Social History Smoking Status: Never smoker Tobacco Type: Cigarettes Age Started Using Tobacco: 8; Age Quit Using Tobacco: 49; packs per day: 1.5; Second Hand Exposure: No; Do You Dip or Chew Tobacco: No; Hx Alcohol Use: No Hx Substance Use: No Preferred Language: Sami Communication Ability: Effective Visual Impairment: No Limitations Head Host/Hostess Required: No Beliefs That Will Affect Care: None marital status: Current Living Situation: Spouse Current Living Situation Comment: Patient lives with her . Her daughter and 1 grandson live there current occupational status: retired How many Children do You have: 3 Feels Safe at Home: Yes Diet: regular Dental Care, Regularly: No Physical Activity Frequency: Does not Exercise Seatbelt Use: sometimes Sunscreen Use: Yes Assistive Devices: Cane, Glasses, Oxygen - Continuous and Walker Allergies Allergies Allergy/AdvReac Type Severity Reaction Status Date / Time adhesive Allergy Intermediate RASH Verified 11/24/23 21:22 ibuprofen Allergy Intermediate RASH Verified 11/24/23 21:22 Iodinated Contrast Media Allergy Intermediate HIVES, Verified 11/24/23 21:22 EYES SWELL SHUT latex Allergy Intermediate RASH Verified 11/24/23 21:22 naproxen Allergy Intermediate SWELLING, Verified 11/24/23 21:22 RASH, HIVES Home Meds Home Medications Medication Instructions Recorded Confirmed cholecalciferol (vitamin D3) 50 2,000 unit PO QAM 06/09/19 11/24/23 mcg (2,000 unit) capsule (Vitamin D3) nystatin 100,000 unit/gram topical 1 applic topical TID PRN Other 06/19/22 11/24/23 powder dextromethorphan-guaifenesin 10 1 tab-cap PO .Q4-6H PRN Cough 08/04/22 11/24/23 mg-200 mg capsule (Coricidin HBP Chest Congestion-Cough) polyethylene glycol 3350 17 gram 17 g PO DAILY PRN Constipation 02/20/23 11/24/23 oral powder packet (Miralax) Previous Rx's Medication Instructions Recorded magnesium oxide 500 mg PO BID #180 tabs 04/08/23 albuterol sulfate 90 mcg/actuation 2 puff inhalation Q4 PRN Wheezing 04/17/23 aerosol inhaler or shortness of breath #8.5 grams budesonide 0.5 mg/2 mL suspension 0.5 mg (2 mL) inhalation BID #360 04/17/23 for nebulization (Pulmicort) mL ipratropium 0.5 mg-albuterol 3 mg 3 ml inhalation Q4H PRN 04/17/23 (2.5 mg base)/3 mL nebulization cough,sob,wheezing #360 mL soln umeclidinium 62.5 mcg-vilanterol 1 inh inhalation QAM #3 Inhalers 04/17/23 25 mcg/actuation powdr for inhalation (Anoro Ellipta) clopidogrel 75 mg tablet 75 mg PO QAM #90 tabs 04/29/23 ondansetron 4 mg disintegrating 4 mg PO Q6H PRN nausea and 04/29/23 tablet vomiting #14 tabs amitriptyline 25 mg tablet 25 mg PO HS #90 tabs 05/02/23 furosemide 40 mg tablet 40 mg PO DAILY PRN swelling or 05/09/23 fluid accumulation #90 tabs hydrochlorothiazide 25 mg tablet 25 mg PO QAM #90 tabs 05/17/23 meclizine 25 mg tablet 12.5 mg (1/2 x 25 mg) PO Q6 PRN 06/06/23 vertigo/dizziness #20 tabs potassium chloride 10 mEq 10 meq PO QAM #90 tabs 06/14/23 tablet,extended release losartan 50 mg tablet 50 mg PO QAM #90 tabs 09/02/23 pantoprazole 40 mg tablet,delayed 40 mg PO BID #180 tabs 10/02/23 release dicyclomine 10 mg capsule 10 mg PO QID PRN ABD PAIN #360 caps 10/22/23 atorvastatin 40 mg tablet 40 mg PO .COMPLEX dyslipidemia #48 10/23/23 tabs atenolol 25 mg tablet 25 mg PO QAM #90 tabs 11/04/23 Results & Data (ED) Vital Signs Vital Signs - 24 hr 11/24/23 17:26 11/24/23 18:50 11/24/23 19:00 Temperature 36.5 C Temperature Source Temporal Artery Scan Pulse Rate 74 65 Pulse Rate [Apical] 64 Respiratory Rate 18 22 Respiratory Effort / Characteristics Non-Labored Respiratory Depth Normal Respiratory Pattern Regular Blood Pressure 180/131 H Blood Pressure [Right Arm] 131/83 Blood Pressure Mean 147 Blood Pressure Mean [Right Arm] 99 Pulse Oximetry 92 93 Oxygen Delivery Method Room Air Nasal Cannula Oxygen Flow Rate 2 Sepsis Recent Fever Within 48 Hours No Sepsis New/Unexplained Change in Mental Status N/A Sepsis Action Taken by Nursing No Action Required Laboratory Data 11/24/23 17:42 11/24/23 17:42 Lab Results 11/24/23 11/24/23 Range/Units 17:31 17:42 WBC 8.37 (4.8-10.8) K/ul RBC 5.03 (4.20-5.40) M/uL Hgb 14.8 (12.0-16.0) g/dl Hct 47.1 H (37.0-47.0) % MCV 93.6 (80.0-100.0) fL MCH 29.4 (25.0-34.0) pg MCHC 31.4 L (32.0-36.0) g/dL RDW Std Deviation 47.7 H (36.4-46.3) fL RDW Coeff of Enoc 14.1 (11.5-14.5) % Plt Count 206 (130-400) K/uL MPV 9.0 L (9.4-12.4) fL Immature Gran % (Auto) 0.5 % Neut % (Auto) 65.3 % Lymph % (Auto) 20.5 % [place] % (Auto) 10.9 % Eos % (Auto) 2.2 % Baso % (Auto) 0.6 % Neut # (Auto) 5.47 (1.40-6.50) K/uL Lymph # (Auto) 1.72 (1.20-3.40) K/uL [place] # (Auto) 0.91 H (0.11-0.59) K/uL Eos # (Auto) 0.18 (0.00-0.50) K/uL Baso # (Auto) 0.05 (0.00-0.20) K/uL Immature Gran # (Auto) 0.04 (0.01-0.20) K/uL Sodium 140 (136-145) mmol/L Potassium 4.1 (3.5-5.1) mmol/L Chloride 103 (98-107) mmol/L Carbon Dioxide 30 (21-32) mmol/L Anion Gap 7 (3-11) BUN 20 (6-23) mg/dl Creatinine 0.80 (0.6-1.2) mg/dl Est Cr Clr Drug Dosing Not Reportable Est GFR ( Amer) 80.7 ml/min Est GFR (Non-Af Amer) 69.6 ml/min BUN/Creatinine Ratio 25.0 H (10-20) Glucose 94 (70-99(Fasting)) mg/dl Calcium 9.6 (8.6-10.3) mg/dl Magnesium 2.2 (1.7-2.4) mg/dl Total Bilirubin 0.5 (0.2-1.0) mg/dl AST 22 (13-39) U/L ALT 23 (7-52) U/L Alkaline Phosphatase 124 H (34-104) U/L Troponin I High Sens 6.0 (0-14) pg/ml B-Natriuretic Peptide 37 (0-100) pg/ml Total Protein 7.0 (6.0-8.3) gm/dl Albumin 4.0 (3.4-5.0) gm/dl Globulin 3.0 (2.5-4.0) gm/dl Albumin/Globulin Ratio 1.3 (0.9-2) Adenovirus (PCR) Not Detected (NotDetected) B. pertussis DNA (PCR) Not Detected (NotDetected) B.parapertussis DNA PCR Not Detected (NotDetected) C. pneumoniae DNA (PCR) Not Detected (NotDetected) Coronavirus OC43 (PCR) Not Detected (NotDetected) Coronavirus HKU1 (PCR) Not Detected (NotDetected) Coronavirus 229E (PCR) Not Detected (NotDetected) SARS-CoV-2 (PCR) Not Detected (NotDetected) Coronavirus NL63 (PCR) Not Detected (NotDetected) Human Metapneumovir PCR Not Detected (NotDetected) Influenza Type A (PCR) Not Detected (NotDetected) Influenza Type B (PCR) Not Detected (NotDetected) M. pneumoniae (PCR) Not Detected (NotDetected) Parainfluenza 1 (PCR) Not Detected (NotDetected) Parainfluenza 2 (PCR) Not Detected (NotDetected) Parainfluenza 3 (PCR) Not Detected (NotDetected) Parainfluenza 4 (PCR) Not Detected (NotDetected) RSV (PCR) Not Detected (NotDetected) Entero/Rhino (PCR) Not Detected (NotDetected) Administered Medications Discontinued Medications Albuterol (Albut/Ipratrop 3mg/0.5mg Neb 3 Ml Vial) 3 ml NEB NOW STA; Protocol Stop: 11/24/23 17:31 Last Admin: 11/24/23 17:36 Dose: 3 ml Documented By: SHERRON Diphenhydramine HCl (Diphenhydramine 50 Mg/Ml Vial) 25 mg IV NOW STA Stop: 11/24/23 19:28 Last Admin: 11/24/23 19:47 Dose: 25 mg Documented By: WILBER Ioversol (Optiray 320 125ml) 118 ml IV ONCE ONE Stop: 11/24/23 20:33 Last Admin: 11/24/23 20:32 Dose: 118 ml Documented By: VERA Methylprednisolone (Methylprednisolone 125 Mg/2 Ml Vial) 60 mg IV NOW STA Stop: 11/24/23 19:28 Last Admin: 11/24/23 19:47 Dose: 60 mg Documented By: WILBER Imaging Data Radiologist's Impression: Chest X-Ray 11/24/23 17:30 XR chest 1V portable CLINICAL HISTORY: Cough, shortness of breath. COMPARISON STUDY: Chest radiograph and chest CT June 05, 2023. FINDINGS: Lung volumes are normal. Lungs are clear. There is no pneumothorax or pleural effusion. Cardiomegaly is unchanged. Mediastinal contours are normal. There is no evidence for pulmonary edema. IMPRESSION: No acute cardiopulmonary findings. No change in appearance of the chest. ACT 112: Negative or not required by law. Electronically signed by: João Villatoro M.D. 11/24/2023 6:06 PM Chest CTA 11/24/23 19:27 Exam(s): CTA CHEST IV Amt: 118 ml optiray 320 EXAM: CT Angiography Chest With Intravenous Contrast CLINICAL HISTORY: Reason for exam: PE. TECHNIQUE: Axial computed tomographic angiography images of the chest with intravenous contrast. CTDI is 36.36 mGy and DLP is 860.21 mGy-cm. Automated exposure control was utilized for the study. A dose lowering technique was utilized adhering to the principles of ALARA. MIP reconstructed images were created and reviewed. COMPARISON: No relevant prior studies available. FINDINGS: LUNGS: No focal consolidation, pleural effusion, or pneumothorax. Atelectasis at the lung bases. HEART: Cardiomegaly. VASCULATURE: No acute pulmonary embolism. Atherosclerotic changes of the aorta. THYROID: Within normal limits. MEDIASTINUM + LYMPH NODES: There are no pathologically enlarged mediastinal, hilar, or axillary lymph nodes. SUPERIOR ABDOMEN: Hepatic steatosis. Low attenuation area in the RIGHT hepatic lobe measures 2.3 x 2.4 cm, recommend nonemergent abdominal ultrasound. MUSCULOSKELETAL: Degenerative changes. IMPRESSION: No acute pulmonary embolism. Low attenuation area in the RIGHT hepatic lobe measures 2.3 x 2.4 cm, recommend nonemergent abdominal ultrasound. Electronically signed by: Paulino Adames MD 11/24/23 21:00 PM Discharge Plan Visit Data Chief Complaint: Abnormal Labs/Diagnostic Testing Stated Complaint: LOW OXYGEN, COUGHING UP FLEM ED Provider: Rosio Parada Discharge Problem: Acute dyspnea Forms Stand Alone Forms: [facility] Prescriptions Prescriptions: No Action magnesium oxide 500 mg tablet 500 mg PO BID Qty: 180 3RF clopidogrel 75 mg tablet 75 mg PO QAM Qty: 90 3RF amitriptyline 25 mg tablet 25 mg PO HS Qty: 90 3RF furosemide 40 mg tablet 40 mg PO DAILY PRN (Reason: swelling or fluid accumulation) Qty: 90 3RF hydrochlorothiazide 25 mg tablet 25 mg PO QAM Qty: 90 1RF potassium chloride 10 mEq tablet extended release 10 meq PO QAM Qty: 90 1RF losartan 50 mg tablet 50 mg PO QAM Qty: 90 1RF pantoprazole 40 mg tablet,delayed release (DR/EC) 40 mg PO BID Qty: 180 3RF dicyclomine 10 mg capsule 10 mg PO QID PRN (Reason: ABD PAIN) Qty: 360 3RF atorvastatin 40 mg tablet 40 mg PO .COMPLEX Qty: 48 3RF Rx Instructions: 40 mg orally every other day; atenolol 25 mg tablet 25 mg PO QAM Qty: 90 1RF albuterol sulfate 90 mcg/actuation HFA aerosol inhaler 2 puff INHALATION Q4 PRN (Reason: Wheezing or shortness of breath) Qty: 8.5 3RF ipratropium-albuterol 0.5 mg-3 mg(2.5 mg base)/3 mL solution for nebulization 3 ml INH Q4H PRN (Reason: cough,sob,wheezing) Qty: 360 6RF Anoro Ellipta 62.5-25 mcg/actuation blister with device 1 inh INHALATION QAM Qty: 3 4RF budesonide [Pulmicort] 0.5 mg/2 mL suspension for nebulization 0.5 mg INH BID Qty: 360 4RF cholecalciferol (vitamin D3) [Vitamin D3] 2,000 unit Capsule 2,000 unit PO QAM Coricidin HBP Chest Ren-Cough 10-200 mg Capsule 1 tab-cap PO .Q4-6H PRN (Reason: Cough) ondansetron 4 mg tablet,disintegrating 4 mg PO Q6H PRN (Reason: nausea and vomiting) Qty: 14 0RF meclizine 25 mg tablet 12.5 mg PO Q6 PRN (Reason: vertigo/dizziness) Qty: 20 0RF nystatin 100,000 unit/gram powder 1 applic TOPICAL TID PRN (Reason: Other) polyethylene glycol 3350 [Miralax] 17 gram powder in packet 17 g PO DAILY PRN (Reason: Constipation) Referrals Referrals: Lala Baum MD [Primary Care Provider] -
[2023-11-24] MEDS: OPTIRAY 320 125ml IV ONE (20:32)
--- NOTE | 2023-11-24 21:00 | CT Scan Report ---
Exam(s): CTA CHEST IV Amt: 118 ml optiray 320 EXAM: CT Angiography Chest With Intravenous Contrast CLINICAL HISTORY: Reason for exam: PE. TECHNIQUE: Axial computed tomographic angiography images of the chest with intravenous contrast. CTDI is 36.36 mGy and DLP is 860.21 mGy-cm. Automated exposure control was utilized for the study. A dose lowering technique was utilized adhering to the principles of ALARA. MIP reconstructed images were created and reviewed. COMPARISON: No relevant prior studies available. FINDINGS: LUNGS: No focal consolidation, pleural effusion, or pneumothorax. Atelectasis at the lung bases. HEART: Cardiomegaly. VASCULATURE: No acute pulmonary embolism. Atherosclerotic changes of the aorta. THYROID: Within normal limits. MEDIASTINUM + LYMPH NODES: There are no pathologically enlarged mediastinal, hilar, or axillary lymph nodes. SUPERIOR ABDOMEN: Hepatic steatosis. Low attenuation area in the RIGHT hepatic lobe measures 2.3 x 2.4 cm, recommend nonemergent abdominal ultrasound. MUSCULOSKELETAL: Degenerative changes. IMPRESSION: No acute pulmonary embolism. Low attenuation area in the RIGHT hepatic lobe measures 2.3 x 2.4 cm, recommend nonemergent abdominal ultrasound. Electronically signed by: Paulino Adames MD 11/24/23 21:00 PM
--- NOTE | 2023-11-24 21:15 | History & Physical Report ---
Date of Service November 24, 2023 Assessment & Plan (1) Acute dyspnea: Plan: Suspect acute on chronic COPD exacerbation 2 weeks of increased dyspnea, intermittent wheezing, easy fatigue on exertion. Has had increased bleeding production with a change in color to dark green over this to CTA without evidence of pneumonia or PE Steroids ordered Flutter valve, incentive spirometry Titrate SpO2 to 89% Mucinex QT is not prolonged; azithromycin course ordered PFTs 11/2022 reviewed; at that time moderate obstructive disease with air trapping and mildly decreased DLCO. FEV1/FVC ratio 0.6 (2) Chronic obstructive pulmonary disease: (3) Fibromyalgia: Plan: Continue home medication (4) Sleep apnea: Plan: CPAP nightly as needed (5) CVA (cerebral vascular accident): Plan: History of CVA per patient no residual deficits. This did occur while she was on aspirin and she was switched to Plavix. Suspect acute COPD exacerbation as a cause of her dyspnea, if patient does not improve and all other workup negative can trial on an alternative antiplatelet No acute strokelike deficits (6) Hypertension: Plan: Continue HCTZ, losartan, atenolol Plan DVT prophylaxis: Lovenox Diet: Heart healthy CODE STATUS: Full code Disposition: ed surgical History of Present Illness Primary Care Provider: Lala Baum MD Jayla is an 78-year-old female with a past medical history of fibromyalgia, COPD, chronic respiratory failure with hypoxia who presents with shortness of breath and hypoxia. Typically on 2 L of nasal cannula in the evenings. Endorses that she is extremely dyspneic with even short exertion and prehospital had a oxygen level of 80%. CTA shows no evidence of PE, fluid overload, or pneumonia. Bio fire is negative. BNP is normal. Troponin is normal. She is normotensive with a regular heart rate. She is 93% on 2 L. Seen at the bedside. Dyspnea gradually wrosening over 2 weeks. She has COPD but does not usually need oxygen. Has been in the 80s the last few days and even lower when walking. Uses 2L at night only. Increased cough with yellow/green sputum. Approx 2 weeks of sputum production. Increased wheezing for two weeks. Normally does not wheeze. Takes Anoro in the morning and albuterol as needed. Has tried an albuterol nebulizer once or twice a barbara, not sure if it helped. On plaavix for history of stroke. Was on aspirin at the time and was switched to plaavix. Denies other symptoms. Denies chest pain, chest pressure. Denies orthopnea. Denies lightheadedness or dizziness. Denies abdominal pain. Denies nausea/vomiting/diarrhea. 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 No etoh. Code Status: Full Code Allergies Allergy/AdvReac Type Severity Reaction Status Date / Time adhesive Allergy Intermediate RASH Verified 11/24/23 21:22 ibuprofen Allergy Intermediate RASH Verified 11/24/23 21:22 Iodinated Contrast Media Allergy Intermediate HIVES, Verified 11/24/23 21:22 EYES SWELL SHUT latex Allergy Intermediate RASH Verified 11/24/23 21:22 naproxen Allergy Intermediate SWELLING, Verified 11/24/23 21:22 RASH, HIVES Home Medications Medication Instructions Recorded Confirmed Type cholecalciferol (vitamin D3) 50 2,000 unit PO QAM 06/09/19 11/24/23 History mcg (2,000 unit) capsule (Vitamin D3) nystatin 100,000 unit/gram topical 1 applic topical TID PRN Other 06/19/22 11/24/23 History powder dextromethorphan-guaifenesin 10 1 tab-cap PO .Q4-6H PRN Cough 08/04/22 11/24/23 History mg-200 mg capsule (Coricidin HBP Chest Congestion-Cough) polyethylene glycol 3350 17 gram 17 g PO DAILY PRN Constipation 02/20/23 11/24/23 History oral powder packet (Miralax) magnesium oxide 500 mg PO BID #180 tabs 04/08/23 11/24/23 Rx albuterol sulfate 90 mcg/actuation 2 puff inhalation Q4 PRN Wheezing 04/17/23 11/24/23 Rx aerosol inhaler or shortness of breath #8.5 grams budesonide 0.5 mg/2 mL suspension 0.5 mg (2 mL) inhalation BID #360 04/17/23 11/24/23 Rx for nebulization (Pulmicort) mL ipratropium 0.5 mg-albuterol 3 mg 3 ml inhalation Q4H PRN 04/17/23 11/24/23 Rx (2.5 mg base)/3 mL nebulization cough,sob,wheezing #360 mL soln umeclidinium 62.5 mcg-vilanterol 1 inh inhalation QAM #3 Inhalers 04/17/23 11/24/23 Rx 25 mcg/actuation powdr for inhalation (Anoro Ellipta) clopidogrel 75 mg tablet 75 mg PO QAM #90 tabs 04/29/23 11/24/23 Rx ondansetron 4 mg disintegrating 4 mg PO Q6H PRN nausea and 04/29/23 11/24/23 Rx tablet vomiting #14 tabs amitriptyline 25 mg tablet 25 mg PO HS #90 tabs 05/02/23 11/24/23 Rx furosemide 40 mg tablet 40 mg PO DAILY PRN swelling or 05/09/23 11/24/23 Rx fluid accumulation #90 tabs hydrochlorothiazide 25 mg tablet 25 mg PO QAM #90 tabs 05/17/23 11/24/23 Rx meclizine 25 mg tablet 12.5 mg (1/2 x 25 mg) PO Q6 PRN 06/06/23 11/24/23 Rx vertigo/dizziness #20 tabs potassium chloride 10 mEq 10 meq PO QAM #90 tabs 06/14/23 11/24/23 Rx tablet,extended release losartan 50 mg tablet 50 mg PO QAM #90 tabs 09/02/23 11/24/23 Rx pantoprazole 40 mg tablet,delayed 40 mg PO BID #180 tabs 10/02/23 11/24/23 Rx release dicyclomine 10 mg capsule 10 mg PO QID PRN ABD PAIN #360 caps 10/22/23 11/24/23 Rx atorvastatin 40 mg tablet 40 mg PO .COMPLEX dyslipidemia #48 10/23/23 11/24/23 Rx tabs atenolol 25 mg tablet 25 mg PO QAM #90 tabs 11/04/23 11/24/23 Rx Past Med/Surg History Medical History (Updated 11/24/23 @ 21:34 by Anand Dunbar MD) Hypertension History of intestinal obstruction History of diverticulitis Chronic respiratory failure with hypoxia On anticoagulant therapy plavix daily Transient ischemic attack (TIA) (~09/18/20) per pt had mini stroke and started on plavix daily On home oxygen therapy 2L N/C at hs and prn History of COVID-19 diagnosed 08/2020 @ [facility]--cough, headache, fatigue--no issues now Vertigo Dysconjugate gaze Hypomagnesemia Osteoarthritis Anxiety and depression Sleep apnea O2 2L HS Multiple pulmonary nodules Obstructive sleep apnea of adult no device, uses O2 Urge incontinence of urine Fibromyalgia Kidney stones HX Chronic obstructive pulmonary disease nebulizer/inhalers daily and prn///2L n/c at HS/PRN GERD (gastroesophageal reflux disease) Dyslipidemia IBS (irritable bowel syndrome) Surgical History History of cystoscopy (~07/24/19) History of bunionectomy RT History of surgical removal of right nipple History of cataract surgery RT/LEFT History of ureter stent History of right breast biopsy x2--benign History of dilatation and curettage History of removal of cyst left hand History of colonoscopy History of cholecystectomy Lap cholecystectomy: 06/04/16: Grade view 2, MAC#3, ETT 7.0 at [facility] Status post biopsy of thyroid gland benign History of tooth extraction all teeth H/O esophagogastroduodenoscopy "repair zenkers diverticulum" History of bilateral breast reduction surgery History of tonsillectomy and adenoidectomy History of total hysterectomy Family History Brother Family history of diabetes mellitus Other No family history of adverse response to anesthesia Denies family history of Diabetes Crohn's disease Colorectal cancer Ulcerative colitis Stroke Social History Smoking Status: Never smoker Tobacco Type: Cigarettes Age Started Using Tobacco: 8; Age Quit Using Tobacco: 49; packs per day: 1.5; Second Hand Exposure: No; Do You Dip or Chew Tobacco: No; Hx Alcohol Use: No Hx Substance Use: No Preferred Language: Latvian Communication Ability: Effective Visual Impairment: No Limitations Special Trackwork Blacksmith Required: No Beliefs That Will Affect Care: None marital status: Current Living Situation: Spouse Current Living Situation Comment: Patient lives with her . Her daughter and 1 grandson live there current occupational status: retired How many Children do You have: 3 Feels Safe at Home: Yes Diet: regular Dental Care, Regularly: No Physical Activity Frequency: Does not Exercise Seatbelt Use: sometimes Sunscreen Use: Yes Assistive Devices: Cane, Glasses, Oxygen - Continuous and Walker Physical Exam Physical Exam: General: A&Ox3. NAD. Cooperative. HEENT: Atraumatic, normocephalic. Vision/hearing intact Pulm: Restricted air movement, no wheezing however air movement is reduced and on forced expiration does have a trace end expiratory wheeze. No rales or rhonchi symmetrical chest rise. No increased work of breathing. No respiratory distress. Cardiac: RRR, -mrg. Radial pulses intact and symmetrical. Abdominal: Nontender, nondistended, soft. BS present. Results & Data Results & Data Vital Signs (Past 12 Hours) Vital Signs Temp Pulse Pulse Resp BP BP Pulse Ox 11/24/23 19:00 64 22 131/83 93 11/24/23 18:50 65 11/24/23 17:26 36.5 C 74 18 180/131 H 92 O2 Del Method O2 Flow Rate 11/24/23 19:00 Nasal Cannula 2 11/24/23 18:50 11/24/23 17:26 Room Air PG Care Time/CCT Total # of Minutes Spent Total Time Spent with Patient: Total time spent is greater than 50% in coordination of care (as documented) at patient's floor/unit and/or counseling patient: Coding Level of Care Code 38846 INT INP/OBS CARE 3/75MIN Diagnoses Acute dyspnea R06.00 Chronic obstructive pulmonary disease J44.9 Fibromyalgia M79.7 Sleep apnea G47.30 CVA (cerebral vascular accident) I63.9 Hypertension I10
[2023-11-25] MEDS ORDERED: ALBUTEROL 0.5% NEB SOLN 2.5 MG/0.5 ML VIAL NEB PRN (00:09)
[2023-11-25] MEDS ORDERED: DICYCLOMINE HCL 10 MG CAP PO PRN (00:09)
[2023-11-25] MEDS ORDERED: POLYETHYLENE (MIRALAX) 17 GM PACK PO PRN (00:09)
[2023-11-25] MEDS: ALBUT/IPRATROP 3MG/0.5MG NEB 3 ML VIAL NEB SCH (00:38)
[2023-11-25] MEDS: AZITHROMYCIN 500 MG in DEXTROSE 5% 250 ML IV STA (00:45)
[2023-11-25] MEDS: ACETAMINOPHEN 325 MG TAB PO PRN (01:12)
[2023-11-25] MEDS: Patient's HEIGHT &/or WEIGHT Needed ONE (01:16)
[2023-11-25] MEDS: BUDESONIDE 0.5 MG/2 ML VIAL (PULMICORT) INH SCH (07:37)
[2023-11-25 07:53] LABS: Hemoglobin 14.2 g/dl (12.0-16.0); Mean Corpuscular Hemoglobin 29.3 pg (25.0-34.0); Mean Corpuscular Hgb Conc 32.3 g/dL (32.0-36.0); Mean Corpuscular Volume 90.9 fL (80.0-100.0); Mean Platelet Volume 9.3 fL (9.4-12.4); Platelet Count 202 K/uL (130-400); RDW Coefficient of Variation 14.1 % (11.5-14.5); RDW Standard Deviation 47.2 fL (36.4-46.3); Red Blood Count 4.84 M/uL (4.20-5.40); White Blood Count 8.32 K/ul (4.8-10.8)
[2023-11-25 08:12] LABS: Calcium 9.4 mg/dl (8.6-10.3); Creatinine Clr Calc Pharmacy 61.6 ml/min; Est GFR (African American) 88.7 ml/min; Est GFR (Non-African American) 76.5 ml/min
--- NOTE | 2023-11-25 09:23 | Hospitalist Progress Note ---
Date of Service November 25, 2023 Assessment & Plan (1) Acute dyspnea: Plan: Suspect acute on chronic COPD exacerbation 2 weeks of increased dyspnea, intermittent wheezing, easy fatigue on exertion. Has had increased bleeding production with a change in color to dark green over this to CTA without evidence of pneumonia or PE Steroids ordered Flutter valve, incentive spirometry Titrate SpO2 to 89% Mucinex QT is not prolonged; azithromycin course ordered PFTs 11/2022 reviewed; at that time moderate obstructive disease with air trapping and mildly decreased DLCO. FEV1/FVC ratio 0.6 (2) Chronic obstructive pulmonary disease: (3) Fibromyalgia: Plan: Continue home medication (4) Sleep apnea: Plan: CPAP nightly as needed (5) CVA (cerebral vascular accident): Plan: History of CVA per patient no residual deficits. This did occur while she was on aspirin and she was switched to Plavix. Suspect acute COPD exacerbation as a cause of her dyspnea, if patient does not improve and all other workup negative can trial on an alternative antiplatelet No acute strokelike deficits (6) Hypertension: Plan: Continue HCTZ, losartan, atenolol Plan DVT prophylaxis: Lovenox Diet: Heart healthy CODE STATUS: Full code Disposition: ed surgical Admission and Anticipated Discharge Date Admission Date: November 24, 2023 Subjective the pt is doing much better but still feels about 40% of her baseline still coughing and short of breath no focal loss or wheezes Physical Exam Physical Exam: lungs are with good air movement no wheezes or loss no edema cardiac is regular with murmur Results & Data Results & Data Vital Signs (Past 12 Hours) Vital Signs Temp Pulse Pulse Pulse Resp BP BP 11/25/23 08:06 98.2 F 80 16 121/63 11/25/23 07:39 75 18 11/25/23 03:10 163/82 H 11/25/23 02:49 77 18 11/25/23 00:39 71 16 11/25/23 00:10 11/25/23 00:10 11/25/23 00:10 97.7 F 78 18 171/98 H 11/25/23 00:10 97.7 F 78 18 171/98 H 11/24/23 23:08 74 22 154/108 H 11/24/23 23:00 73 22 154/108 H Pulse Ox O2 Del Method O2 Flow Rate 11/25/23 08:06 95 Nasal Cannula 2 11/25/23 07:39 95 Nasal Cannula 2 11/25/23 03:10 11/25/23 02:49 94 Nasal Cannula 2 11/25/23 00:39 95 Nasal Cannula 2 11/25/23 00:10 Nasal Cannula 2 11/25/23 00:10 Nasal Cannula 2 11/25/23 00:10 94 Nasal Cannula 2 11/25/23 00:10 94 Nasal Cannula 2 11/24/23 23:08 92 Nasal Cannula 2 11/24/23 23:00 92 Room Air 2 Laboratory Results reviewed cbc reviewed chemistry PG Care Time/CCT Total # of Minutes Spent Total Time Spent with Patient: Total time spent is greater than 50% in coordination of care (as documented) at patient's floor/unit and/or counseling patient: Coding Level of Care Code 62913 SUB INP/OBS CARE 2/35MIN Diagnoses Acute dyspnea R06.00 Chronic obstructive pulmonary disease J44.9 Fibromyalgia M79.7 Sleep apnea G47.30 CVA (cerebral vascular accident) I63.9 Hypertension I10
--- NOTE | 2023-11-25 09:25 | Ultrasound Report ---
ABDOMINAL ULTRASOUND, RIGHT UPPER QUADRANT HISTORY: Follow-up chest CT. liver mass noted on CT chest. COMPARISON: Chest CTA 11/24/2023. FINDINGS: Pancreas: The pancreatic tail is obscured by overlying bowel gas. The remaining portions of the pancr eas are within normal limits. Liver: 18 cm in length. There is a 3.5 cm left hepatic lobe cyst again noted. No definite hepatic mas ses. Gallbladder: The gallbladder is surgically absent. CBD: 3 mm. Right kidney: No hydronephrosis. IMPRESSION: 1. A stable 3.5 cm left hepatic lobe cyst. No definite hepatic masses. 2. Cholecystectomy. ACT 112: Negative or not required by law. Electronically signed by: Nate Singleton M.D. 11/25/2023 9:23 AM
[2023-11-25] MEDS: ATENOLOL 25 MG TABLET PO SCH (09:56)
[2023-11-25] MEDS: ATORVASTATIN 40 MG TAB PO SCH (09:56)
[2023-11-25] MEDS: ENOXAPARIN INJ 40 MG/0.4 ML SYR SQ SCH (09:57)
[2023-11-25] MEDS: CLOPIDOGREL BISULFATE 75 MG TAB PO SCH (09:57)
[2023-11-25] MEDS: MAGNESIUM OXIDE 400 MG TAB PO SCH (09:58)
[2023-11-25] MEDS: hydroCHLOROthiazide 25 MG TAB PO SCH (09:58)
[2023-11-25] MEDS: guaiFENesin 600 MG TABCR PO SCH (09:58)
[2023-11-25] MEDS: UMECLIDINIUM/VILANTEROL 62.5/25MCG 7 PUFFS/INHALER INH SCH (10:00)
[2023-11-25] MEDS: PANTOprazole 40 MG TAB PO SCH (10:00)
[2023-11-25] MEDS: methylPREDNISolone 40 MG in SYRINGE 0 ML IV SCH (10:01)
[2023-11-25] MEDS: LOSARTAN POTASSIUM 50 MG TAB PO SCH (10:02)
--- NOTE | 2023-11-25 10:54 | Electrocardiogram Report ---
Test Reason : Blood Pressure : / mmHG Vent. Rate : 072 BPM Atrial Rate : 072 BPM P-R Int : 206 ms QRS Dur : 084 ms QT Int : 396 ms P-R-T Axes : 050 002 071 degrees QTc Int : 433 ms Normal sinus rhythm Normal ECG When compared with ECG of 05-JUN-2023 09:12, No significant change was found Confirmed by Carter Edwards ([id number] on 11/25/2023 10:54:08 AM Referred By: REFERRED SELF Confirmed By:Luciano Edwards
[2023-11-25] MEDS: AMITRIPTYLINE HCL 25 MG TAB PO SCH (21:33)
[2023-11-25] MEDS: AZITHROMYCIN 250 MG in DEXTROSE 5% 250 ML IV SCH (21:36)
--- NOTE | 2023-11-26 17:07 | Hospitalist Progress Note ---
Date of Service November 26, 2023 Assessment & Plan (1) Acute dyspnea: Plan: Suspect acute on chronic COPD exacerbation 2 weeks of increased dyspnea, intermittent wheezing, easy fatigue on exertion. CTA without evidence of pneumonia or PE Steroids ordered, change to po Flutter valve, incentive spirometry Titrate SpO2 to 89% Mucinex azithromycin course ordered PFTs 11/2022 reviewed; at that time moderate obstructive disease with air trapping and mildly decreased DLCO. FEV1/FVC ratio 0.6 will give one dose lasix and check echo on 11/26/23 (2) Fibromyalgia: Plan: Continue home medication, chronic stable (3) Sleep apnea: Plan: CPAP nightly as needed (4) CVA (cerebral vascular accident): Plan: History of CVA per patient no residual deficits. This did occur while she was on aspirin and she was switched to Plavix. Suspect acute COPD exacerbation as a cause of her dyspnea, if patient does not improve and all other workup negative can trial on an alternative antiplatelet No acute strokelike deficits (5) Hypertension: Plan: chronic and stable -Continue HCTZ, losartan, atenolol Plan DVT prophylaxis: Lovenox Diet: Heart healthy CODE STATUS: Full code constipation continue lubiprostone Admission and Anticipated Discharge Date Admission Date: November 24, 2023 Subjective pt continues to complain of not feeling well and being short of breath, she has cough that is clear, she states she is only 50% to her baseline, she has a flat affect and seems to be depressed Physical Exam Physical Exam: pt is awake and alert lungs are with poor air movement, some expiratory wheezes no focal loss card is regular, no murmur Results & Data Results & Data Vital Signs (Past 12 Hours) Vital Signs Temp Pulse Resp BP Pulse Ox O2 Del Method O2 Flow Rate 11/26/23 15:49 98.1 F 93 H 16 108/66 91 Room Air 11/26/23 14:29 80 18 90 Room Air 11/26/23 12:11 Nasal Cannula 2 11/26/23 10:43 70 20 96 Nasal Cannula 2 11/26/23 08:04 97.7 F 57 L 16 125/74 97 Room Air 11/26/23 07:20 54 L 18 96 Nasal Cannula 2 PG Care Time/CCT Total # of Minutes Spent Total Time Spent with Patient: Total time spent is greater than 50% in coordination of care (as documented) at patient's floor/unit and/or counseling patient: Coding Level of Care Code 77666 SUB INP/OBS CARE 2/35MIN Diagnoses Acute dyspnea R06.00 Fibromyalgia M79.7 Sleep apnea G47.30 CVA (cerebral vascular accident) I63.9 Hypertension I10
[2023-11-26] MEDS: FUROSEMIDE INJ 20 MG/2 ML VIAL IV ONE (18:28)
[2023-11-26] MEDS: AZITHROMYCIN 250 MG TAB PO SCH (18:38)
[2023-11-26] MEDS: LUBIPROSTONE 24 MCG PO SCH (20:40)
[2023-11-26] MEDS: VENLAFAXINE HCL 37.5 MG TAB PO SCH (20:42)
[2023-11-27] MEDS: MELATONIN 3 MG TAB PO ONE (01:22)
[2023-11-27] MEDS: PERFLUTREN LIPID MICROSPHERE (DEFINITY) IV ONE (07:42)
[2023-11-27] MEDS: predniSONE 20 MG TAB PO SCH (08:36)
[2023-11-27 08:43] LABS: BUN Creatinine Ratio 41.2 (10-20); Calcium 9.7 mg/dl (8.6-10.3); Est GFR (African American) 63.9 ml/min; Est GFR (Non-African American) 55.2 ml/min; Magnesium 2.4 mg/dl (1.7-2.4); Potassium 4.2 mmol/L (3.5-5.1)
--- NOTE | 2023-11-27 12:13 | XCELERA ---
[id number]
[2023-11-27] MEDS: FAMOTIDINE 20 MG TAB PO SCH (13:34)
[2023-11-27] MEDS: levoFLOXacin 750 MG TAB PO SCH (13:34)
--- NOTE | 2023-11-27 19:39 | Hospitalist Progress Note ---
Date of Service November 27, 2023 Assessment & Plan (1) Acute dyspnea: Plan: Suspect acute on chronic COPD exacerbation 2 weeks of increased dyspnea, intermittent wheezing, easy fatigue on exertion. CTA without evidence of pneumonia or PE Steroids ordered, change to po Flutter valve, incentive spirometry Titrate SpO2 to 89% Mucinex azithromycin course ordered PFTs 11/2022 reviewed; at that time moderate obstructive disease with air trapping and mildly decreased DLCO. FEV1/FVC ratio 0.6 lasix and echo on 11/26/23 echo is without significant reduction in systolic function or valvular heart diseaseno significant improvement in her respiratory status (2) Fibromyalgia: Plan: Continue home medication, chronic stable Stopping amitriptyline at bedtime changing over to Effexor to try to have more energizing effect on this patient (3) Sleep apnea: Plan: CPAP nightly as needed (4) CVA (cerebral vascular accident): Plan: History of CVA per patient no residual deficits. This did occur while she was on aspirin and she was switched to Plavix. Suspect acute COPD exacerbation as a cause of her dyspnea, if patient does not improve and all other workup negative can trial on an alternative antiplatelet No acute strokelike deficits (5) Hypertension: Plan: chronic and stable -Continue , losartan, atenololstop daily hydrochlorothiazide in the face of giving a dose of Lasix Plan DVT prophylaxis: Lovenox Diet: Heart healthy CODE STATUS: Full code constipation continue lubiprostone Admission and Anticipated Discharge Date Admission Date: November 24, 2023 Subjective Difficult patient continues to say she does not feel well she feels short of breath. Clinically she is without the need for oxygen although nurses typically have 2 L on her nose. Her lungs have reasonably good air movement no focal loss or wheeze. She was given Lasix for diuresis yesterday with some and urine output. Echocardiogram was performed without significant decrease in cardiac function or valvular disease Attempt of changing antidepressant therapy Physical occupational therapy assessments show she is fit to return home Physical Exam Physical Exam: Patient awake alert appropriate. She has no increased work of breathing. Her lungs are without wheezes. Extremities are with trace edema Results & Data Results & Data Vital Signs (Past 12 Hours) Vital Signs Temp Pulse Resp BP Pulse Ox O2 Del Method O2 Flow Rate 11/27/23 15:37 98.6 F 68 16 113/72 95 Nasal Cannula 2 02/21/24 14:48 68 18 98 Nasal Cannula 2 11/27/23 10:51 56 L 18 96 Nasal Cannula 2 11/27/23 08:08 99.0 F 71 18 145/81 H 93 Room Air 11/27/23 07:55 Nasal Cannula 2 11/27/23 07:50 68 18 95 Nasal Cannula 2 Laboratory Results Reviewed chemistry reviewed magnesium PG Care Time/CCT Total # of Minutes Spent Total Time Spent with Patient: Total time spent is greater than 50% in coordination of care (as documented) at patient's floor/unit and/or counseling patient: Coding Level of Care Code 43228 SUB INP/OBS CARE 2/35MIN Diagnoses Acute dyspnea R06.00 Fibromyalgia M79.7 Sleep apnea G47.30 CVA (cerebral vascular accident) I63.9 Hypertension I10
[2023-11-28] MEDS: ONDANSETRON INJ 2 MG/ML 2 ML VIAL IV PRN (14:24)
--- NOTE | 2023-11-28 17:08 | XRay Report ---
XR chest 2V PA/lateral HISTORY: copd exacerbation COMPARISON: Chest 11/24/2023. FINDINGS: The no pneumothorax. No pleural effusions. No focal lung consolidations to suggest a pneumo liza. No evidence for pulmonary edema. The heart is borderline enlarged. This remains unchanged. Prior cholecystectomy. No acute fractures. IMPRESSION: No significant change compared to the prior study. No acute process. ACT 112: Negative or not required by law. Electronically signed by: Nate Singleton M.D. 11/28/2023 5:07 PM
[2023-11-28] MEDS: POLYETHYLENE (MIRALAX) 17 GM PACK PO SCH (18:36)
--- NOTE | 2023-11-28 22:32 | Hospitalist Progress Note ---
Date of Service November 28, 2023 Assessment & Plan (1) Acute dyspnea: Plan: Suspect acute on chronic COPD exacerbation 2 weeks of increased dyspnea, intermittent wheezing, easy fatigue on exertion. CTA without evidence of pneumonia or PE Steroids ordered, change to po incentive spirometry Titrate SpO2 to 89% Mucinex azithromycin course ordered PFTs 11/2022 reviewed; at that time moderate obstructive disease with air trapping and mildly decreased DLCO. FEV1/FVC ratio 0.6 lasix and echo on 11/26/23 echo is without significant reduction in systolic function or valvular heart diseaseno significant improvement in her respiratory status no flutter valve in room, this was ordered on 11/28 (2) Fibromyalgia: Plan: Continue home medication, chronic stable Stopping amitriptyline at bedtime changing over to Effexor to try to have more energizing effect on this patient (3) Sleep apnea: Plan: CPAP nightly as needed (4) CVA (cerebral vascular accident): Plan: History of CVA per patient no residual deficits. This did occur while she was on aspirin and she was switched to Plavix. Suspect acute COPD exacerbation as a cause of her dyspnea, if patient does not improve and all other workup negative can trial on an alternative antiplatelet No acute strokelike deficits (5) Hypertension: Plan: chronic and stable -Continue , losartan, atenololstop daily hydrochlorothiazide in the face of giving a dose of Lasix Plan DVT prophylaxis: Lovenox Diet: Heart healthy CODE STATUS: Full code constipation continue lubiprostone Admission and Anticipated Discharge Date Admission Date: November 24, 2023 Subjective Patient reports no new symptoms. not ready for discharge. Patient reports difficulty coughing up sputum Review of Systems Review of Systems: All systems reviewed & are unremarkable except as noted in HPI & below Physical Exam Physical Exam: Patient awake alert appropriate. She has no increased work of breathing. Her lungs are without wheezes. Extremities are with trace edema Results & Data Results & Data Vital Signs (Past 12 Hours) Vital Signs Temp Pulse Resp BP Pulse Ox Pulse Ox Pulse Ox 11/28/23 21:43 11/28/23 19:49 36.9 C 65 18 106/66 94 11/28/23 19:39 65 16 94 11/28/23 15:36 60 14 94 11/28/23 14:48 36.9 C 60 18 106/65 94 11/28/23 11:10 61 18 95 11/28/23 10:42 96 96 Pulse Ox O2 Del Method O2 Flow Rate O2 Flow Rate O2 Flow Rate O2 Flow Rate 11/28/23 21:43 Nasal Cannula 2 11/28/23 19:49 Nasal Cannula 2 11/28/23 19:39 Nasal Cannula 2 11/28/23 15:36 Nasal Cannula 2 11/28/23 14:48 Nasal Cannula 2 11/28/23 11:10 Nasal Cannula 2 11/28/23 10:42 92 2 2 2 PG Care Time/CCT Total # of Minutes Spent Total Time Spent with Patient: Total time spent is greater than 50% in coordination of care (as documented) at patient's floor/unit and/or counseling patient: Coding Level of Care Code 16458 SUB INP/OBS CARE 2/35MIN Diagnoses Acute dyspnea R06.00 Fibromyalgia M79.7 Sleep apnea G47.30 CVA (cerebral vascular accident) I63.9 Hypertension I10
[2023-11-29 08:11] LABS: Hematocrit (blood only) 40.9 % (37.0-47.0); Hemoglobin 13.1 g/dl (12.0-16.0); Mean Corpuscular Hemoglobin 29.5 pg (25.0-34.0); Mean Corpuscular Volume 92.1 fL (80.0-100.0); Mean Platelet Volume 9.2 fL (9.4-12.4); Platelet Count 183 K/uL (130-400); RDW Coefficient of Variation 14.1 % (11.5-14.5); RDW Standard Deviation 47.9 fL (36.4-46.3); Red Blood Count 4.44 M/uL (4.20-5.40); White Blood Count 9.46 K/ul (4.8-10.8)
[2023-11-29 08:37] LABS: Anion Gap 5 (3-11); BUN Creatinine Ratio 39.8 (10-20); Blood Urea Nitrogen 37 mg/dl (6-23); C Reactive Protein < 0.50 mg/dl (0-0.5); Carbon Dioxide 29 mmol/L (21-32); Chloride 102 mmol/L (98-107); Est GFR (African American) 67.3 ml/min; Glucose 86 mg/dl (70-99(Fasting)); Potassium 4.2 mmol/L (3.5-5.1); Sodium 136 mmol/L (136-145)
--- NOTE | 2023-11-29 21:49 | Hospitalist Progress Note ---
Date of Service November 29, 2023 Assessment & Plan (1) Acute dyspnea: Plan: Suspect acute on chronic COPD exacerbation 2 weeks of increased dyspnea, intermittent wheezing, easy fatigue on exertion. CTA without evidence of pneumonia or PE Steroids ordered, change to po incentive spirometry Titrate SpO2 to 89% Mucinex azithromycin course ordered PFTs 11/2022 reviewed; at that time moderate obstructive disease with air trapping and mildly decreased DLCO. FEV1/FVC ratio 0.6 lasix and echo on 11/26/23 echo is without significant reduction in systolic function or valvular heart diseaseno significant improvement in her respiratory status no flutter valve in room, this was ordered on 11/28 She appears to be feeling better. SHe continues to require intermittent oxyugen Plan for a 2 step in the AM and discharge on 11/30 (2) Fibromyalgia: Plan: Continue home medication, chronic stable Stopping amitriptyline at bedtime changing over to Effexor to try to have more energizing effect on this patient (3) Sleep apnea: Plan: CPAP nightly as needed (4) CVA (cerebral vascular accident): Plan: History of CVA per patient no residual deficits. This did occur while she was on aspirin and she was switched to Plavix. Suspect acute COPD exacerbation as a cause of her dyspnea, if patient does not improve and all other workup negative can trial on an alternative antiplatelet No acute strokelike deficits (5) Hypertension: Plan: chronic and stable -Continue , losartan, atenololstop daily hydrochlorothiazide in the face of giving a dose of Lasix Plan DVT prophylaxis: Lovenox Diet: Heart healthy CODE STATUS: Full code constipation continue lubiprostone Admission and Anticipated Discharge Date Admission Date: November 24, 2023 Subjective Patient reports no new symptoms. Review of Systems Review of Systems: All systems reviewed & are unremarkable except as noted in HPI & below Physical Exam Physical Exam: Patient awake alert appropriate. She has no increased work of breathing. Her lungs are without wheezes. Extremities are with trace edema Results & Data Results & Data Vital Signs (Past 12 Hours) Vital Signs Temp Pulse Resp BP Pulse Ox O2 Del Method O2 Flow Rate 11/29/23 20:36 18 93 Room Air 87 11/29/23 20:00 Room Air 11/29/23 15:12 71 14 94 Nasal Cannula 2 11/29/23 14:59 36.9 C 73 16 108/68 94 Nasal Cannula 2 11/29/23 11:27 68 14 95 Nasal Cannula 2 PG Care Time/CCT Total # of Minutes Spent Total Time Spent with Patient: Total time spent is greater than 50% in coordination of care (as documented) at patient's floor/unit and/or counseling patient: Coding Level of Care Code 15262 SUB INP/OBS CARE 2/35MIN Diagnoses Acute dyspnea R06.00 Fibromyalgia M79.7 Sleep apnea G47.30 CVA (cerebral vascular accident) I63.9 Hypertension I10
[2023-11-30 07:10] LABS: Hemoglobin 12.9 g/dl (12.0-16.0); Mean Corpuscular Hemoglobin 29.1 pg (25.0-34.0); Mean Corpuscular Hgb Conc 30.7 g/dL (32.0-36.0); Mean Corpuscular Volume 94.6 fL (80.0-100.0); Mean Platelet Volume 9.2 fL (9.4-12.4); Platelet Count 173 K/uL (130-400); RDW Coefficient of Variation 14.1 % (11.5-14.5); RDW Standard Deviation 49.6 fL (36.4-46.3); Red Blood Count 4.44 M/uL (4.20-5.40); White Blood Count 9.31 K/ul (4.8-10.8)
[2023-11-30] MEDS: ALBUT/IPRATROP 3MG/0.5MG NEB 3 ML VIAL NEB SCH (07:20)
[2023-11-30 07:22] LABS: Anion Gap 3 (3-11); BUN Creatinine Ratio 32.4 (10-20); Blood Urea Nitrogen 33 mg/dl (6-23); C Reactive Protein < 0.50 mg/dl (0-0.5); Calcium 9.1 mg/dl (8.6-10.3); Carbon Dioxide 32 mmol/L (21-32); Chloride 104 mmol/L (98-107); Creatinine Clr Calc Pharmacy 44.7 ml/min; Est GFR (African American) 60.2 ml/min; Est GFR (Non-African American) 51.9 ml/min; Glucose 105 mg/dl (70-99(Fasting)); Potassium 4.4 mmol/L (3.5-5.1); Sodium 139 mmol/L (136-145)
--- NOTE | 2023-11-30 11:54 | Discharge Summary ---
Date of Service November 30, 2023 Admission HPI Per Admitting Provider Jayla is an 78-year-old female with a past medical history of fibromyalgia, COPD, chronic respiratory failure with hypoxia who presents with shortness of breath and hypoxia. Typically on 2 L of nasal cannula in the evenings. Endorses that she is extremely dyspneic with even short exertion and prehospital had a oxygen level of 80%. CTA shows no evidence of PE, fluid overload, or pneumonia. Bio fire is negative. BNP is normal. Troponin is normal. She is normotensive with a regular heart rate. She is 93% on 2 L. Seen at the bedside. Dyspnea gradually wrosening over 2 weeks. She has COPD but does not usually need oxygen. Has been in the 80s the last few days and even lower when walking. Uses 2L at night only. Increased cough with yellow/green sputum. Approx 2 weeks of sputum production. Increased wheezing for two weeks. Normally does not wheeze. Takes Anoro in the morning and albuterol as needed. Has tried an albuterol nebulizer once or twice a barbara, not sure if it helped. On plaavix for history of stroke. Was on aspirin at the time and was switched to plaavix. Denies other symptoms. Denies chest pain, chest pressure. Denies orthopnea. Denies lightheadedness or dizziness. Denies abdominal pain. Denies nausea/vomiting/diarrhea. 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 No etoh. Code Status: Full Code Principal Diagnosis acute on chronic copd exacerbation Discharge Exam Patient awake alert appropriate. She has no increased work of breathing. Her lungs are without wheezes. Extremities are with trace edema Discharge Data Allergies Allergy/AdvReac Type Severity Reaction Status Date / Time adhesive Allergy Intermediate RASH Verified 11/24/23 21:22 ibuprofen Allergy Intermediate RASH Verified 11/24/23 21:22 Iodinated Contrast Media Allergy Intermediate HIVES, Verified 11/24/23 21:22 EYES SWELL SHUT latex Allergy Intermediate RASH Verified 11/24/23 21:22 naproxen Allergy Intermediate SWELLING, Verified 11/24/23 21:22 RASH, HIVES Consultations 11/24/23 21:09 ED Decision to Admit Stat Ordered Studies 11/24/23 19:27 CT for pulmonary embolism PE [CT angio chest PE protocol] Stat 11/25/23 00:09 US liver Routine Hospital Course (1) Acute dyspnea: Suspect acute on chronic COPD exacerbation 2 weeks of increased dyspnea, intermittent wheezing, easy fatigue on exertion. CTA without evidence of pneumonia or PE Steroids ordered, change to po incentive spirometry Titrate SpO2 to 89% Mucinex azithromycin course ordered PFTs 11/2022 reviewed; at that time moderate obstructive disease with air trapping and mildly decreased DLCO. FEV1/FVC ratio 0.6 lasix and echo on 11/26/23 echo is without significant reduction in systolic function or valvular heart diseaseno significant improvement in her respiratory status no flutter valve in room, this was ordered on 11/28 She appears to be feeling better on 11/29 SHe continues to require intermittent oxygen 2 step on day of discharge on 11/30 required 2 liters of oxygen on ambulation. Patient will be discharged. (2) Fibromyalgia: Continue home medication, chronic stable Stopping amitriptyline at bedtime changing over to Effexor to try to have more energizing effect on this patient (3) Sleep apnea: CPAP nightly as needed (4) CVA (cerebral vascular accident): History of CVA per patient no residual deficits. This did occur while she was on aspirin and she was switched to Plavix. Suspect acute COPD exacerbation as a cause of her dyspnea, if patient does not improve and all other workup negative can trial on an alternative antiplatelet No acute strokelike deficits (5) Hypertension: chronic and stable -Continue , losartan, atenololstop daily hydrochlorothiazide in the face of giving a dose of Lasix Total Time Total Time Spent Total Time Spent (In Minutes): 32 Discharge Plan Discharge Items Patient Disposition: Home - Self-Care Reason For Visit: SOB Discharge Diagnosis: SOB Activity: Resume your previous activity Non-emergency contact: Primary Care Provider Call non-emergency contact if: you have any medication questions Follow-up/Referrals: Lala Baum MD [Primary Care Provider] - 12/09/23 4:00 pm (APPOINTMENT WITH [facility] LLAMAS) Diet: Heart Healthy Addtl Attending Provider Instructions: You will be discharged on an antibiotic for one more day. Levofloxacin take one dose tomorrow at 11 am You will also be discharged on a steroid taper. take 3 tabs once daily for 2 days then 2 tabs once daily for 2 days then 1 tab once daily for 2 days. Venlafaxine will be replacing amitriptyline. We will also discontinue hydrochlorothiazide. Recommend close followup with PCP in 1-2 weeks. Pending Studies at Discharge: No Stand-Alone Forms: My [facility], Smoking Cessation Medications and DC Order Prescriptions: New venlafaxine 37.5 mg Tablet 37.5 mg PO BID Qty: 60 0RF guaifenesin [Mucinex] 600 mg Tablet Extended Release 12hr 1,200 mg PO Q12 Qty: 10 0RF levofloxacin 750 mg Tablet 750 mg PO DAILY@1100 Qty: 1 0RF prednisone 10 mg tablet See Rx Instructions .ROUTE .COMPLEX Qty: 12 0RF Rx Instructions: Po Daily Take 3 tabs once daily for 2 days then 2 tabs once daily for 2 days 1 tabs once daily for 2 days Continued magnesium oxide 500 mg tablet 500 mg PO BID Qty: 180 3RF clopidogrel 75 mg tablet 75 mg PO QAM Qty: 90 3RF furosemide 40 mg tablet 40 mg PO DAILY PRN (Reason: swelling or fluid accumulation) Qty: 90 3RF potassium chloride 10 mEq tablet extended release 10 meq PO QAM Qty: 90 1RF losartan 50 mg tablet 50 mg PO QAM Qty: 90 1RF pantoprazole 40 mg tablet,delayed release (DR/EC) 40 mg PO BID Qty: 180 3RF dicyclomine 10 mg capsule 10 mg PO QID PRN (Reason: ABD PAIN) Qty: 360 3RF atorvastatin 40 mg tablet 40 mg PO .COMPLEX Qty: 48 3RF Rx Instructions: 40 mg orally every other day; atenolol 25 mg tablet 25 mg PO QAM Qty: 90 1RF albuterol sulfate 90 mcg/actuation HFA aerosol inhaler 2 puff INHALATION Q4 PRN (Reason: Wheezing or shortness of breath) Qty: 8.5 3RF ipratropium-albuterol 0.5 mg-3 mg(2.5 mg base)/3 mL solution for nebulization 3 ml INH Q4H PRN (Reason: cough,sob,wheezing) Qty: 360 6RF Anoro Ellipta 62.5-25 mcg/actuation blister with device 1 inh INHALATION QAM Qty: 3 4RF budesonide [Pulmicort] 0.5 mg/2 mL suspension for nebulization 0.5 mg INH BID Qty: 360 4RF cholecalciferol (vitamin D3) [Vitamin D3] 2,000 unit Capsule 2,000 unit PO QAM Coricidin HBP Chest Ren-Cough 10-200 mg Capsule 1 tab-cap PO .Q4-6H PRN (Reason: Cough) ondansetron 4 mg tablet,disintegrating 4 mg PO Q6H PRN (Reason: nausea and vomiting) Qty: 14 0RF meclizine 25 mg tablet 12.5 mg PO Q6 PRN (Reason: vertigo/dizziness) Qty: 20 0RF nystatin 100,000 unit/gram powder 1 applic TOPICAL TID PRN (Reason: Other) polyethylene glycol 3350 [Miralax] 17 gram powder in packet 17 g PO DAILY PRN (Reason: Constipation) lubiprostone 24 mcg capsule 24 mcg PO BID Discontinued amitriptyline 25 mg tablet 25 mg PO HS Qty: 90 3RF hydrochlorothiazide 25 mg tablet 25 mg PO QAM Qty: 90 1RF No Action ZINC PO Patient Comments: PT REPORTS THAT SHE TAKES A ZINC DAILY. UNKNOWN STRENGTH Discharge Orders: Discharge Order (Routine); Ordered 11/30/23 Ordered By: Robert Iqbal Admission Data Admit Date/Time: 11/24/23 21:35 Attending Provider: Robert Iqbal Admit Provider: Glenna Alegria Primary Care Provider: Lala Baum Other Providers: Glenna Alegria Other Interventions: Discharge Summary Assessment (RN) Last Done: 11/30/23 13:07 Coding Level of Care Code 90447 INP/OBS DISCH >30 MIN Diagnoses Acute dyspnea R06.00 Fibromyalgia M79.7 Sleep apnea G47.30 CVA (cerebral vascular accident) I63.9 Hypertension I10
== END 2023-11-30 14:17 | disposition home or self-care (01) | DRG 191 ==
LOC: ED 17:18 → 3N 21:35 → SUATTDRO 21:35 → 3N 23:08

== ENCOUNTER 2023-12-22 10:50 | Inpatient (IN) ==
[2023-12-22] MEDS: ALBUT/IPRATROP 3MG/0.5MG NEB 3 ML VIAL NEB STA (11:35)
[2023-12-22 11:38] LABS: Base Excess VBG 6.5 mEq/L; HCO3 VBG 32 mmol/L; Oxygen Saturation VBG 84.1 %; PCO2 VBG 50 mmHg (38-50); PO2 VBG 47 mmHg; pH VBG 7.42 (7.36-7.41)
[2023-12-22 11:45] LABS: Basophils # (auto) 0.04 K/uL (0.00-0.20); Basophils % (auto) 0.6 %; Eosinophils # (auto) 0.24 K/uL (0.00-0.50); Eosinophils % (auto) 3.8 %; Hemoglobin 14.5 g/dl (12.0-16.0); Immature Granulocytes # (auto) 0.02 K/uL (0.01-0.20); Immature Granulocytes % (auto) 0.3 %; Mean Corpuscular Hemoglobin 29.4 pg (25.0-34.0); Mean Corpuscular Hgb Conc 30.9 g/dL (32.0-36.0); Mean Corpuscular Volume 95.1 fL (80.0-100.0); Mean Platelet Volume 9.6 fL (9.4-12.4); Monocytes % (auto) 9.6 %; Neutrophils # (auto) 4.35 K/uL (1.40-6.50); Neutrophils % (auto) 69.7 %; Platelet Count 187 K/uL (130-400); RDW Coefficient of Variation 14.3 % (11.5-14.5); Red Blood Count 4.94 M/uL (4.20-5.40); White Blood Count 6.25 K/ul (4.8-10.8)
--- NOTE | 2023-12-22 11:53 | Emergency Department Note ---
Impression & Plan Hypoxia, ANDINO (dyspnea on exertion), COPD exacerbation ED Provider Note NAME: BENNIE GUTIÉRREZ AGE: 78 SEX: F : 1945 ARRIVES VIA: Walk-In INFORMANT: [Patient][family] ED PROVIDER(S): [Jose D Saenz MD] CHIEF COMPLAINT: Shortness of breath HISTORY OF PRESENT ILLNESS: The patient is an 78-year-old female who states that she was admitted to our hospital for around 5 days several weeks ago for dyspnea. Since discharge, the breathing has worsened to the point where she presents back today. She states she wears oxygen typically only with exertion but lately, her sats have been in the low 80s even when at rest. The patient has shortness of breath. She feels she cannot get a deep breath. There is no chest pain. She has been coughing but this is rather chronic. She has not had fever. No vomiting or diarrhea. She is using a nebulizer at home twice a day. PMHx/PSHx/Social Hx: See Below PHYSICAL EXAM: GENERAL: Patient is in no acute distress. HEENT: No acute trauma, normocephalic atraumatic, mucous membranes moist, no nasal congestion. NECK: No stridor, no adenopathy, no meningismus, trachea is midline. LUNGS: No respiratory distress, breath sounds are quite diminished bilaterally. HEART: Without murmurs gallops or rubs, regular rate and rhythm. ABDOMEN: Soft, nontender, no peritonitis. EXTREMITIES: No cyanosis, full range of motion of all the joints without pain or difficulty. Mild bilateral pedal edema. NEUROLOGIC: Oriented x 3, no acute motor or sensory deficits, no focal weakness. SKIN: No jaundice, no diaphoresis. DIFFERENTIAL DIAGNOSIS: Exacerbation of chronic lung disease, CHF, pneumonia, bronchitis, anemia, viral illness, among others. EMERGENCY DEPARTMENT PROCEDURES: MEDICAL DECISION MAKING: There is no leukocytosis or concerning anemia. There is a normal platelet count. No coagulopathy. VBG does not show acidosis or significant CO2 retention. No renal failure or significant electrolyte abnormality. No concerning liver enzyme elevation. BNP is not elevated making CHF unlikely. ECG shows a normal sinus rhythm, no ST elevation. Cardiac enzyme testing x 1 is not consistent with acute cardiac injury. Respiratory bio fire was completely negative. Chest film does not show pneumonia or CHF. On exam, patient was hypoxic with just a little bit of exertion in the ED. She was hypoxic despite 3 L of oxygen. She had markedly diminished breath sounds on my exam. Patient received a DuoNeb, she was given IV Solu-Medrol. She was maintained on nasal cannula supplementation. The patient does seem to be improved since treatment here in the ED. She presents with increasing dyspnea, she was found to be hypoxic. She appears to be suffering from a severe flare of COPD. She is not safe for discharge home. I spoke with the patient and case management, the on-call hospitalist was consulted. Prior/Outside records/notes reviewed: Discharge summary from 11/30/2023 discussing her presentation for dyspnea and her flare of COPD. ECG per my interpretation: Indication was shortness of breath. The ECG shows a normal sinus rhythm with a rate of 68. There is no ST elevation, no PVCs but the QTc is 414. Continuous Cardiac Monitoring per my interpretation: An order was placed for continuous cardiac monitoring. The monitor shows a rate of 65 with normal sinus rhythm. Imaging/x-ray results per my interpretation: Chest x-ray shows some chronic change, there was no pneumonia or CHF. Chronic Medical/Social conditions affecting care: Advanced age. History of COPD. Care/Management discussed with: Case management, the on-call hospitalist. Level of care consideration(s): After review of the information above and other included data: --I believe the patient requires escalation of care to admission Critical Care Note: I have personally spent 43 minutes of critical care time in the direct management of this patient. This includes bedside care, interpretation of diagnostic studies, and testing, discussion with consultants, patient, and family members, and other required patient management activities. This 43 minutes is in excess of all separately billable procedures. DISPOSITION: Admission Past Med/Surg History Medical History Hypertension History of intestinal obstruction History of diverticulitis Chronic respiratory failure with hypoxia On anticoagulant therapy plavix daily Transient ischemic attack (TIA) (~09/18/20) per pt had mini stroke and started on plavix daily On home oxygen therapy 2L N/C at hs and prn History of COVID-19 diagnosed 08/2020 @ [facility]--cough, headache, fatigue--no issues now Vertigo Dysconjugate gaze Hypomagnesemia Osteoarthritis Anxiety and depression Sleep apnea O2 2L HS Multiple pulmonary nodules Obstructive sleep apnea of adult no device, uses O2 Urge incontinence of urine Fibromyalgia Kidney stones HX Chronic obstructive pulmonary disease nebulizer/inhalers daily and prn///2L n/c at HS/PRN GERD (gastroesophageal reflux disease) Dyslipidemia IBS (irritable bowel syndrome) Surgical History History of cystoscopy (~07/24/19) History of bunionectomy RT History of surgical removal of right nipple History of cataract surgery RT/LEFT History of ureter stent History of right breast biopsy x2--benign History of dilatation and curettage History of removal of cyst left hand History of colonoscopy History of cholecystectomy Lap cholecystectomy: 06/04/16: Grade view 2, MAC#3, ETT [address] [facility] Status post biopsy of thyroid gland benign History of tooth extraction all teeth H/O esophagogastroduodenoscopy "repair zenkers diverticulum" History of bilateral breast reduction surgery History of tonsillectomy and adenoidectomy History of total hysterectomy Family History Brother Family history of diabetes mellitus Other No family history of adverse response to anesthesia Denies family history of Diabetes Crohn's disease Colorectal cancer Ulcerative colitis Stroke Social History Smoking Status: Former smoker Tobacco Type: Cigarettes Age Started Using Tobacco: 8; Age Quit Using Tobacco: 49; packs per day: 1.5; Second Hand Exposure: No; Do You Dip or Chew Tobacco: No; Hx Alcohol Use: No Hx Substance Use: No Preferred Language: Ukrainian Communication Ability: Effective Visual Impairment: No 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 Her daughter and 1 grandson live there current occupational status: retired How many Children do You have: 3 Feels Safe at Home: Yes Safety Concerns: Feels Safe At This Time Diet: regular Dental Care, Regularly: No Physical Activity Frequency: Does not Exercise Seatbelt Use: sometimes Sunscreen Use: Yes Assistive Devices: Cane, Oxygen - at Night and Walker Allergies Allergies Allergy/AdvReac Type Severity Reaction Status Date / Time adhesive Allergy Intermediate RASH Verified 12/16/23 11:32 ibuprofen Allergy Intermediate RASH Verified 12/16/23 11:32 Iodinated Contrast Media Allergy Intermediate HIVES, Verified 12/16/23 11:32 EYES SWELL SHUT latex Allergy Intermediate RASH Verified 12/16/23 11:32 naproxen Allergy Intermediate SWELLING, Verified 12/16/23 11:32 RASH, HIVES Home Meds Home Medications Medication Instructions Recorded Confirmed cholecalciferol (vitamin D3) 50 2,000 unit PO QAM 06/09/19 12/22/23 mcg (2,000 unit) capsule (Vitamin D3) nystatin 100,000 unit/gram topical 1 applic topical TID PRN Other 06/19/22 12/22/23 powder dextromethorphan-guaifenesin 10 1 tab-cap PO .Q4-6H PRN Cough 08/04/22 12/22/23 mg-200 mg capsule (Coricidin HBP Chest Congestion-Cough) polyethylene glycol 3350 17 gram 17 g PO DAILY PRN Constipation 02/20/23 12/22/23 oral powder packet (Miralax) lubiprostone 24 mcg capsule 24 mcg PO BID 11/26/23 12/22/23 ZINC See Rx Instructions .Route .COMPLEX 12/02/23 12/22/23 Previous Rx's Medication Instructions Recorded magnesium oxide 500 mg PO BID #180 tabs 04/08/23 albuterol sulfate 90 mcg/actuation 2 puff inhalation Q4 PRN Wheezing 04/17/23 aerosol inhaler or shortness of breath #8.5 grams budesonide 0.5 mg/2 mL suspension 0.5 mg (2 mL) inhalation BID #360 04/17/23 for nebulization (Pulmicort) mL ipratropium 0.5 mg-albuterol 3 mg 3 ml inhalation Q4H PRN 04/17/23 (2.5 mg base)/3 mL nebulization cough,sob,wheezing #360 mL soln umeclidinium 62.5 mcg-vilanterol 1 inh inhalation QAM #3 Inhalers 04/17/23 25 mcg/actuation powdr for inhalation (Anoro Ellipta) clopidogrel 75 mg tablet 75 mg PO QAM #90 tabs 04/29/23 furosemide 40 mg tablet 40 mg PO DAILY PRN swelling or 05/09/23 fluid accumulation #90 tabs meclizine 25 mg tablet 12.5 mg (1/2 x 25 mg) PO Q6 PRN 06/06/23 vertigo/dizziness #20 tabs potassium chloride 10 mEq 10 meq PO QAM #90 tabs 06/14/23 tablet,extended release losartan 50 mg tablet 50 mg PO QAM #90 tabs 09/02/23 pantoprazole 40 mg tablet,delayed 40 mg PO BID #180 tabs 10/02/23 release dicyclomine 10 mg capsule 10 mg PO QID PRN ABD PAIN #360 caps 10/22/23 atorvastatin 40 mg tablet 40 mg PO .COMPLEX dyslipidemia #48 10/23/23 tabs atenolol 25 mg tablet 25 mg PO QAM #90 tabs 11/04/23 venlafaxine 37.5 mg tablet 37.5 mg PO BID #60 tabs 11/30/23 cetirizine 10 mg tablet (Zyrtec) 10 mg PO DAILY PRN allergy 12/16/23 symptoms #30 tabs ondansetron HCl 4 mg tablet 4 mg PO Q6H PRN nausea and 12/16/23 vomiting #10 tabs Results & Data (ED) Vital Signs Vital Signs - 24 hr 12/22/23 11:00 12/22/23 11:21 12/22/23 11:21 Temperature 36.4 C L Temperature Source Temporal Artery Scan Pulse Rate 68 Respiratory Rate 18 Respiratory Effort / Characteristics Non-Labored Spontaneous Respiratory Depth Normal Blood Pressure 173/86 H Blood Pressure Mean 115 Blood Pressure Position Sitting Pulse Oximetry 90 96 96 Oxygen Delivery Method Nasal Cannula Nasal Cannula Nasal Cannula Oxygen Flow Rate 3 4 4 Sepsis Recent Fever Within 48 Hours No Sepsis New/Unexplained Change in Mental Status No Sepsis Action Taken by Nursing No Action Required 12/22/23 11:59 12/22/23 12:19 Temperature Temperature Source Pulse Rate 64 Respiratory Rate Respiratory Effort / Characteristics Respiratory Depth Blood Pressure Blood Pressure Mean Blood Pressure Position Pulse Oximetry 85 L Oxygen Delivery Method Nasal Cannula Oxygen Flow Rate 3 Sepsis Recent Fever Within 48 Hours Sepsis New/Unexplained Change in Mental Status Sepsis Action Taken by Half-Way Medications Current Medication List: was personally reviewed by me Laboratory Data Attestation: I reviewed the patient's lab results. 12/22/23 11:27 12/22/23 12:32 Lab Results 12/22/23 12/22/23 Range/Units 11:27 12:32 WBC 6.25 (4.8-10.8) K/ul RBC 4.94 (4.20-5.40) M/uL Hgb 14.5 (12.0-16.0) g/dl Hct 47.0 (37.0-47.0) % MCV 95.1 (80.0-100.0) fL MCH 29.4 (25.0-34.0) pg MCHC 30.9 L (32.0-36.0) g/dL RDW Std Deviation 50.0 H (36.4-46.3) fL RDW Coeff of Enoc 14.3 (11.5-14.5) % Plt Count 187 (130-400) K/uL MPV 9.6 (9.4-12.4) fL Immature Gran % (Auto) 0.3 % Neut % (Auto) 69.7 % Lymph % (Auto) 16.0 % Tompkins % (Auto) 9.6 % Eos % (Auto) 3.8 % Baso % (Auto) 0.6 % Neut # (Auto) 4.35 (1.40-6.50) K/uL Lymph # (Auto) 1.00 L (1.20-3.40) K/uL Tompkins # (Auto) 0.60 H (0.11-0.59) K/uL Eos # (Auto) 0.24 (0.00-0.50) K/uL Baso # (Auto) 0.04 (0.00-0.20) K/uL Immature Gran # (Auto) 0.02 (0.01-0.20) K/uL PT Cancelled 11.3 INR Cancelled 1.0 APTT Cancelled 29 PTT Ratio Cancelled 1.0 D-Dimer 610 H* (0-500) ug/L FEU VBG pH 7.42 H (7.36-7.41) VBG pCO2 50 (38-50) mmHg VBG pO2 47 mmHg VBG HCO3 32 mmol/L VBG O2 Saturation 84.1 % VBG Base Excess 6.5 mEq/L Sodium 139 (136-145) mmol/L Potassium TNP 4.3 Chloride 104 (98-107) mmol/L Carbon Dioxide 32 (21-32) mmol/L Anion Gap 3 (3-11) BUN 15 (6-23) mg/dl Creatinine 0.75 (0.6-1.2) mg/dl Est Cr Clr Drug Dosing Not Reportable Est GFR ( Amer) 87.3 ml/min Est GFR (Non-Af Amer) 75.3 ml/min BUN/Creatinine Ratio 20.0 (10-20) Glucose 100 H (70-99(Fasting)) mg/dl Calcium 9.5 (8.6-10.3) mg/dl Magnesium 2.3 (1.7-2.4) mg/dl Total Bilirubin 0.7 (0.2-1.0) mg/dl AST TNP 15 ALT 16 (7-52) U/L Alkaline Phosphatase 94 (34-104) U/L Troponin I High Sens 9.0 (0-14) pg/ml B-Natriuretic Peptide 56 (0-100) pg/ml Total Protein 6.9 (6.0-8.3) gm/dl Albumin 4.1 (3.4-5.0) gm/dl Globulin 2.8 (2.5-4.0) gm/dl Albumin/Globulin Ratio 1.5 (0.9-2) Administered Medications Acetaminophen (Acetaminophen 325 Mg Tab) 650 mg PO Q4H PRN PRN Reason: pain/fever Stop: 01/21/24 15:05 Last Admin: 12/22/23 18:10 Dose: 650 mg Documented By: CLEM Doxycycline Hyclate (Doxycycline Hyclate 100 Mg Cap) 100 mg PO BID ELIEZER Stop: 12/27/23 15:29 Last Admin: 12/22/23 18:12 Dose: 100 mg Documented By: CLEM Discontinued Medications Acetaminophen (Acetaminophen 500 Mg Tab) Confirm Administered Dose 1,000 mg .ROUTE .STK-MED ONE Stop: 12/22/23 13:28 Last Admin: 12/22/23 13:30 Dose: 1,000 mg Documented By: JESSICA Albuterol (Albut/Ipratrop 3mg/0.5mg Neb 3 Ml Vial) 3 ml NEB NOW STA; Protocol Stop: 12/22/23 11:06 Last Admin: 12/22/23 11:35 Dose: 3 ml Documented By: JENNIFER Methylprednisolone (Methylprednisolone 125 Mg/2 Ml Vial) 60 mg IV NOW STA Stop: 12/22/23 12:02 Last Admin: 12/22/23 12:05 Dose: 60 mg Documented By: KR Imaging Data Radiologist's Impression: Chest X-Ray 12/22/23 11:05 XR chest 1V portable HISTORY: Dyspnea COMPARISON: Chest 12/16/2023. FINDINGS: No pneumothorax. No pleural effusions. The heart remains mildly enlarged. Mild interstitial thickening persists. This is likely chronic. No new focal lung consolidations to suggest a pneumonia. No evidence for pulmonary edema. No acute fractures. IMPRESSION: No significant change compared to the prior study. No acute process. ACT 112: Negative or not required by law. Electronically signed by: Nate Singleton M.D. 12/22/2023 12:12 PM Discharge Plan Visit Data Chief Complaint: Shortness of Breath/Dyspnea Stated Complaint: LOW OXYGEN, SOB, HEADACHES, NAUSEA ED Provider: Jose D Saenz Discharge Problem: Hypoxia, ANDINO (dyspnea on exertion), COPD exacerbation Patient Disposition: Admitted As Inpatient Condition: Fair Discharge Instructions Interventions: ED Discharge Assessment Last Done: 12/22/23 14:30
[2023-12-22] MEDS: methylPREDNISolone 125 MG/2 ML VIAL IV STA (12:05)
[2023-12-22 12:08] LABS: Alanine Aminotransferase 16 U/L (7-52); Albumin Globulin Ratio 1.5 (0.9-2); Albumin Level 4.1 gm/dl (3.4-5.0); Alkaline Phosphatase 94 U/L (34-104); Anion Gap 3 (3-11); Bilirubin,Total 0.7 mg/dl (0.2-1.0); Blood Urea Nitrogen 15 mg/dl (6-23); Calcium 9.5 mg/dl (8.6-10.3); Carbon Dioxide 32 mmol/L (21-32); Chloride 104 mmol/L (98-107); Est GFR (African American) 87.3 ml/min; Est GFR (Non-African American) 75.3 ml/min; Globulin 2.8 gm/dl (2.5-4.0); Glucose 100 mg/dl (70-99(Fasting)); Magnesium 2.3 mg/dl (1.7-2.4); Sodium 139 mmol/L (136-145); Total Protein 6.9 gm/dl (6.0-8.3)
--- NOTE | 2023-12-22 12:13 | XRay Report ---
XR chest 1V portable HISTORY: Dyspnea COMPARISON: Chest 12/16/2023. FINDINGS: No pneumothorax. No pleural effusions. The heart remains mildly enlarged. Mild interstitial thickening persists. This is likely chronic. No new focal lung consolidations to suggest a pneumonia . No evidence for pulmonary edema. No acute fractures. IMPRESSION: No significant change compared to the prior study. No acute process. ACT 112: Negative or not required by law. Electronically signed by: Nate Singleton M.D. 12/22/2023 12:12 PM
--- NOTE | 2023-12-22 12:22 | Electrocardiogram Report ---
Test Reason : Blood Pressure : / mmHG Vent. Rate : 068 BPM Atrial Rate : 068 BPM P-R Int : 164 ms QRS Dur : 074 ms QT Int : 390 ms P-R-T Axes : 039 -13 056 degrees QTc Int : 414 ms Normal sinus rhythm Normal ECG When compared with ECG of 24-NOV-2023 21:26, No significant change was found Confirmed by Carter Edwards [id number]) on 12/22/2023 12:22:18 PM Referred By: REFERRED SELF Confirmed By:Luciano Edwards
[2023-12-22 12:32] LABS: Adenovirus PCR Not Detected (NotDetected); Bordetella parapertussis PCR Not Detected (NotDetected); Bordetella pertussis PCR Not Detected (NotDetected); Chlamydia pneumoniae PCR Not Detected (NotDetected); Coronavirus 229E PCR Not Detected (NotDetected); Coronavirus CoV-2 (COVID19)PCR Not Detected (NotDetected); Coronavirus HKU1 PCR Not Detected (NotDetected); Coronavirus NL63 PCR Not Detected (NotDetected); Coronavirus OC43PCR Not Detected (NotDetected); Human Metapneumovirus PCR Not Detected (NotDetected); Influenza A PCR Not Detected (NotDetected); Influenza B PCR Not Detected (NotDetected); Mycoplasma pneumoniae PCR Not Detected (NotDetected); Parainfluenza Virus 1 PCR Not Detected (NotDetected); Parainfluenza Virus 2 PCR Not Detected (NotDetected); Parainfluenza Virus 3 PCR Not Detected (NotDetected); Parainfluenza Virus 4 PCR Not Detected (NotDetected); Respiratory Syncytial VirusPCR Not Detected (NotDetected); Rhinovirus/Enterovirus PCR Not Detected (NotDetected)
--- NOTE | 2023-12-22 12:43 | History & Physical Report ---
Date of Service December 22, 2023 Assessment & Plan (1) Acute bronchitis with chronic obstructive pulmonary disease (COPD): Plan: Acute on chronic hypoxic respiratory failure, suspect 2/2 acute on chronic COPD exacerbation With 2 L oxygen home requirement, increasing dyspnea and 85% on 3 L at time of ER assessment -Patient has had recent travel of 2.[address] way this past weekend preceding her decreased shortness of breath. She has no tachycardia. She has chronic right greater than left ankle swelling which has not changed recently. She recently had a PE study with last admission that was normal. She has a iodinated contrast allergy that requires pretreatment, but has done well previously as long as the pretreatment protocol was followed. Given dyspnea started after a car ride D-dimer was obtained, this is 610 which is age-adjusted normal, low risk for VTE/PE. Steroids, doxycycline, flutter valve, incentive spirometry, titrate SpO2 to 89%, Mucinex. Anoro/budesonide continued. Patient received azithromycin for prior exacerbation, will switch to doxycycline for current exacerbation. Last PFTs reviewed, ratio 0.6 EKG with normal sinus rhythm no acute ischemic changes, no evidence of volume overload on chest x-ray, and BNP/troponin are both normal. Respiratory bio fire is normal (2) CVA (cerebral vascular accident): Plan: History of CVA No residual neurologic deficits, continue Plavix (3) Hypertension: Plan: Hypertension Continue home meds. Plan Chronic stable issues Fibromyalgia: Continue home medications Sleep apnea: Continue CPAP nightly Anxiety/depression: Continue home meds DVT prophylaxis: Lovenox Disposition: Medical/surgical CODE STATUS: Full code Diet: Heart healthy History of Present Illness Primary Care Provider: Lala Baum MD Jayla is a 78-year-old female with a past medical history of COPD, fibromyalgia, chronic respiratory failure on 2 L of oxygen baseline recently admitted for dyspnea and discharged 11/30/2023 but who has had progressive worsening dyspnea since that time and presents today with dyspnea and increased hypoxia. Prior hospitalization was suspected due to COPD exacerbation, CTA did not show evidence of pneumonia or PE at that time, she was treated with azithromycin/PFTs, two-step on day of discharge show 2 L oxygen requirement, and she was discharged in stable condition. On presentation to the ER 12/21 she is hypoxic to 85% on 3 L and requiring oxygen above her normal baseline and is wheezing. She has no leukocytosis, chest x-ray shows no acute pneumonia or pulm onary edema. She is recommended for admission for recurrent COPD exacerbation. She was treated with albuterol and methylprednisolone in the ER. She is seen at the bedside with her daughter present. She reports she initially did well for a few days after returning home. She traveled by car about 2.[address] this weekend. Endorses chronic right greater than left swelling in her ankles which has not changed recently, but which does remain present. She has not had a DVT/PE before. Her last few days and especially in the last 24 hours she feels her breathing is much more tight, she cannot catch her breath, and she has needed more oxygen than normal. She notes that the feelings of dyspnea and air hunger also flare her anxiety and this causes a loop of both fear and dyspnea. Currently she feels comfortable and is not short of breath on 3-4 L, she denies chest pain at any point, and has not had inspiratory pain. No lightheadedness, dizziness, syncope, presyncope. She does have a nonproductive cough and daughter notes she has had difficulty producing sputum but it sounds like there is "thick mucus ". She has not had fever, chills, sweats. She expresses fear that her COPD will progress and that her Anoro used to work well for her, but over the past months to years her breathing seems to have gradually declined. Medical History: Reviewed Medications: Reviewed Surgical History: Reviewed Family history: Reviewed Allergies: Reviewed Social History: Former tobacco abuse Code Status: Full code Allergies Allergy/AdvReac Type Severity Reaction Status Date / Time adhesive Allergy Intermediate RASH Verified 12/16/23 11:32 ibuprofen Allergy Intermediate RASH Verified 12/16/23 11:32 Iodinated Contrast Media Allergy Intermediate HIVES, Verified 12/16/23 11:32 EYES SWELL SHUT latex Allergy Intermediate RASH Verified 12/16/23 11:32 naproxen Allergy Intermediate SWELLING, Verified 12/16/23 11:32 RASH, HIVES Home Medications Medication Instructions Recorded Confirmed Type cholecalciferol (vitamin D3) 50 2,000 unit PO QAM 06/09/19 12/22/23 History mcg (2,000 unit) capsule (Vitamin D3) nystatin 100,000 unit/gram topical 1 applic topical TID PRN Other 06/19/22 12/22/23 History powder dextromethorphan-guaifenesin 10 1 tab-cap PO .Q4-6H PRN Cough 08/04/22 12/22/23 History mg-200 mg capsule (Coricidin HBP Chest Congestion-Cough) polyethylene glycol 3350 17 gram 17 g PO DAILY PRN Constipation 02/20/23 12/22/23 History oral powder packet (Miralax) magnesium oxide 500 mg PO BID #180 tabs 04/08/23 12/22/23 Rx albuterol sulfate 90 mcg/actuation 2 puff inhalation Q4 PRN Wheezing 04/17/23 12/22/23 Rx aerosol inhaler or shortness of breath #8.5 grams budesonide 0.5 mg/2 mL suspension 0.5 mg (2 mL) inhalation BID #360 04/17/23 12/22/23 Rx for nebulization (Pulmicort) mL ipratropium 0.5 mg-albuterol 3 mg 3 ml inhalation Q4H PRN 04/17/23 12/22/23 Rx (2.5 mg base)/3 mL nebulization cough,sob,wheezing #360 mL soln umeclidinium 62.5 mcg-vilanterol 1 inh inhalation QAM #3 Inhalers 04/17/23 12/22/23 Rx 25 mcg/actuation powdr for inhalation (Anoro Ellipta) clopidogrel 75 mg tablet 75 mg PO QAM #90 tabs 04/29/23 12/22/23 Rx furosemide 40 mg tablet 40 mg PO DAILY PRN swelling or 05/09/23 12/22/23 Rx fluid accumulation #90 tabs meclizine 25 mg tablet 12.5 mg (1/2 x 25 mg) PO Q6 PRN 06/06/23 12/22/23 Rx vertigo/dizziness #20 tabs potassium chloride 10 mEq 10 meq PO QAM #90 tabs 06/14/23 12/22/23 Rx tablet,extended release losartan 50 mg tablet 50 mg PO QAM #90 tabs 09/02/23 12/22/23 Rx pantoprazole 40 mg tablet,delayed 40 mg PO BID #180 tabs 10/02/23 12/22/23 Rx release dicyclomine 10 mg capsule 10 mg PO QID PRN ABD PAIN #360 caps 10/22/23 12/22/23 Rx atorvastatin 40 mg tablet 40 mg PO .COMPLEX dyslipidemia #48 10/23/23 12/22/23 Rx tabs atenolol 25 mg tablet 25 mg PO QAM #90 tabs 11/04/23 12/22/23 Rx lubiprostone 24 mcg capsule 24 mcg PO BID 11/26/23 12/22/23 History venlafaxine 37.5 mg tablet 37.5 mg PO BID #60 tabs 11/30/23 12/22/23 Rx ZINC See Rx Instructions .Route .COMPLEX 12/02/23 12/22/23 History cetirizine 10 mg tablet (Zyrtec) 10 mg PO DAILY PRN allergy 12/16/23 12/22/23 Rx symptoms #30 tabs ondansetron HCl 4 mg tablet 4 mg PO Q6H PRN nausea and 12/16/23 12/22/23 Rx vomiting #10 tabs Past Med/Surg History Medical History (Updated 12/22/23 @ 12:36 by Anand Dunbar MD) Hypertension History of intestinal obstruction History of diverticulitis Chronic respiratory failure with hypoxia On anticoagulant therapy plavix daily Transient ischemic attack (TIA) (~09/18/20) per pt had mini stroke and started on plavix daily On home oxygen therapy 2L N/C at hs and prn History of COVID-19 diagnosed 08/2020 @ [facility]--cough, headache, fatigue--no issues now Vertigo Dysconjugate gaze Hypomagnesemia Osteoarthritis Anxiety and depression Sleep apnea O2 2L HS Multiple pulmonary nodules Obstructive sleep apnea of adult no device, uses O2 Urge incontinence of urine Fibromyalgia Kidney stones HX Chronic obstructive pulmonary disease nebulizer/inhalers daily and prn///2L n/c at HS/PRN GERD (gastroesophageal reflux disease) Dyslipidemia IBS (irritable bowel syndrome) Surgical History History of cystoscopy (~07/24/19) History of bunionectomy RT History of surgical removal of right nipple History of cataract surgery RT/LEFT History of ureter stent History of right breast biopsy x2--benign History of dilatation and curettage History of removal of cyst left hand History of colonoscopy History of cholecystectomy Lap cholecystectomy: 06/04/16: Grade view 2, MAC#3, ETT 7.0 at [facility] Status post biopsy of thyroid gland benign History of tooth extraction all teeth H/O esophagogastroduodenoscopy "repair zenkers diverticulum" History of bilateral breast reduction surgery History of tonsillectomy and adenoidectomy History of total hysterectomy Family History Brother Family history of diabetes mellitus Other No family history of adverse response to anesthesia Denies family history of Diabetes Crohn's disease Colorectal cancer Ulcerative colitis Stroke Social History Smoking Status: Former smoker Tobacco Type: Cigarettes Age Started Using Tobacco: 8; Age Quit Using Tobacco: 49; packs per day: 1.5; Second Hand Exposure: No; Do You Dip or Chew Tobacco: No; Hx Alcohol Use: No Hx Substance Use: No Preferred Language: Mozambican Communication Ability: Effective Visual Impairment: No Limitations Pyrometallurgical Engineer Required: No Beliefs That Will Affect Care: None marital status: Current Living Situation: Spouse Current Living Situation Comment: Patient lives with her . Her daughter and 1 grandson live there current occupational status: retired How many Children do You have: 3 Feels Safe at Home: Yes Diet: regular Dental Care, Regularly: No Physical Activity Frequency: Does not Exercise Seatbelt Use: sometimes Sunscreen Use: Yes Assistive Devices: Cane, Oxygen - at Night and Walker Physical Exam Physical Exam: General: A&Ox3. NAD. Cooperative. HEENT: Atraumatic, normocephalic. Pulm: No wheezing with normal respiration, very tight/restricted air movement on admission. With deep breathing and forced expiration she has a faint high- pitched wheeze at the end of expiration at the right upper quadrant otherwise clear symmetrical chest rise. No increased work of breathing. No respiratory distress. Cardiac: RRR, -mrg. Radial pulses intact and symmetrical. No JVD Abdominal: Nontender, nondistended, soft. BS present. Extremities: Right greater than left trace ankle edema Results & Data Results & Data Vital Signs (Past 12 Hours) Vital Signs Temp Pulse Resp BP Pulse Ox O2 Del Method O2 Flow Rate 12/22/23 12:19 85 L Nasal Cannula 3 12/22/23 11:59 64 12/22/23 11:21 96 Nasal Cannula 4 12/22/23 11:21 96 Nasal Cannula 4 12/22/23 11:00 36.4 C L 68 18 173/86 H 90 Nasal Cannula 3 PG Care Time/CCT Total # of Minutes Spent Total Time Spent with Patient: Total time spent is greater than 50% in coordination of care (as documented) at patient's floor/unit and/or counseling patient: Coding Level of Care Code 39760 INT INP/OBS CARE 3/75MIN Diagnoses Acute bronchitis with chronic obstructive pulmonary disease (COPD) J44.0; J20.9 CVA (cerebral vascular accident) I63.9 Hypertension I10
[2023-12-22 13:10] LABS: Potassium 4.3 mmol/L (3.5-5.1)
[2023-12-22 13:22] LABS: Partial Thromboplastin Time 29 Seconds (21-31); Prothrombin Time 11.3 Seconds (9.0-12.0)
[2023-12-22] MEDS: ACETAMINOPHEN 500 MG TAB ONE (13:30)
[2023-12-22 13:37] LABS: D Dimer 610 ug/L FEU (0-500)
[2023-12-22] MEDS ORDERED: FUROSEMIDE 40 MG TAB PO PRN (15:06)
[2023-12-22] MEDS ORDERED: DICYCLOMINE HCL 10 MG CAP PO PRN (15:06)
[2023-12-22] MEDS ORDERED: CETIRIZINE HCL 10 MG TABLET PO PRN (15:06)
[2023-12-22] MEDS ORDERED: MECLIZINE 12.5 MG TAB PO PRN (15:06)
[2023-12-22] MEDS ORDERED: Patient's WEIGHT Needed STA (15:20)
[2023-12-22] MEDS: ACETAMINOPHEN 325 MG TAB PO PRN (18:10)
[2023-12-22] MEDS: DOXYCYCLINE HYCLATE 100 MG CAP PO SCH (18:12)
[2023-12-22] MEDS: BUDESONIDE 0.5 MG/2 ML VIAL (PULMICORT) INH SCH (19:15)
[2023-12-22] MEDS: MAGNESIUM OXIDE 400 MG TAB PO SCH (19:58)
[2023-12-22] MEDS: LUBIPROSTONE 8 MCG CAP PO SCH (19:58)
[2023-12-22] MEDS: PANTOprazole 40 MG TAB PO SCH (19:59)
[2023-12-22] MEDS: VENLAFAXINE HCL 37.5 MG TAB PO SCH (19:59)
[2023-12-22] MEDS: guaiFENesin 600 MG TABCR PO SCH (20:04)
[2023-12-23 07:01] LABS: Basophils # (auto) 0.01 K/uL (0.00-0.20); Basophils % (auto) 0.1 %; Eosinophils # (auto) 0.02 K/uL (0.00-0.50); Eosinophils % (auto) 0.3 %; Hematocrit (blood only) 41.9 % (37.0-47.0); Hemoglobin 13.4 g/dl (12.0-16.0); Immature Granulocytes # (auto) 0.02 K/uL (0.01-0.20); Immature Granulocytes % (auto) 0.3 %; Lymphocytes % (auto) 16.6 %; Mean Corpuscular Hemoglobin 29.3 pg (25.0-34.0); Mean Corpuscular Volume 91.5 fL (80.0-100.0); Mean Platelet Volume 9.1 fL (9.4-12.4); Monocytes # (auto) 0.75 K/uL (0.11-0.59); Monocytes % (auto) 10.3 %; Neutrophils # (auto) 5.25 K/uL (1.40-6.50); Neutrophils % (auto) 72.4 %; Platelet Count 199 K/uL (130-400); RDW Coefficient of Variation 14.2 % (11.5-14.5); Red Blood Count 4.58 M/uL (4.20-5.40); White Blood Count 7.25 K/ul (4.8-10.8)
[2023-12-23 07:23] LABS: BUN Creatinine Ratio 33.8 (10-20); Calcium 9.2 mg/dl (8.6-10.3); Creatinine Clr Calc Pharmacy 61.1 ml/min; Est GFR (African American) 88.7 ml/min; Est GFR (Non-African American) 76.5 ml/min; Potassium 4.4 mmol/L (3.5-5.1)
[2023-12-23] MEDS: ATENOLOL 25 MG TABLET PO SCH (08:16)
[2023-12-23] MEDS: ATORVASTATIN 40 MG TAB PO SCH (08:16)
[2023-12-23] MEDS: CLOPIDOGREL BISULFATE 75 MG TAB PO SCH (08:16)
[2023-12-23] MEDS: LOSARTAN POTASSIUM 50 MG TAB PO SCH (08:16)
[2023-12-23] MEDS: POTASSIUM CHLORIDE 10 MEQ TABCR PO SCH (08:17)
[2023-12-23] MEDS: methylPREDNISolone 60 MG in SYRINGE 0 ML IV SCH (08:17)
[2023-12-23] MEDS: ENOXAPARIN INJ 40 MG/0.4 ML SYR SQ SCH (08:17)
[2023-12-23] MEDS: UMECLIDINIUM/VILANTEROL 62.5/25MCG 7 PUFFS/INHALER INH SCH (08:18)
[2023-12-23] MEDS ORDERED: methylPREDNISolone 125 MG/2 ML VIAL IV SCH (09:00)
[2023-12-23 12:27] LABS: Appearance Urine Clear (Clear); Bacteria Urine Automated Negative (Negative); Bilirubin Urine Negative (Negative); Blood Urine Trace (Negative); Color Urine Yellow; Epithelial Cell Urine Auto >30 /lpf (0-5); Glucose Urine UA 3+ (Negative); Ketones Urine Negative (Negative); Leukocyte Esterase Urine Negative (Negative); Nitrite Urine Negative (Negative); Protein Urine Negative (Negative); RBC Urine Automated 0-4 /hpf (0-4); Specific Gravity Urine 1.024 (1.000-1.030); Urobilinogen Urine Negative (Negative); pH Urine 5.5 (4.5-7.5)
--- NOTE | 2023-12-23 13:32 | Hospitalist Progress Note ---
Date of Service December 23, 2023 Assessment & Plan (1) Acute bronchitis with chronic obstructive pulmonary disease (COPD): Plan: Acute on chronic hypoxic respiratory failure, suspect 2/2 acute on chronic COPD exacerbation. - Prior to admission in [place], she was only on 2L at bedtime. Two step at discharge recommend 2L with activity. - Patient tried that but last few days, having to wear oxygen more consistently. - BNP/trop/ resp bio fire WNL - concern for PE with recent 2.5 hour car ride - however not tachycardic, PE study last admission was normal. D-dimer 610 (age adjusted normal) --> low risk for PE, will defer CTA and treat as COD exacerbation - if does require CTA will need pretreated per protocol for allergy - doxycycline BID started 12/21 (was given azithromycin last exacerbation) - Methylpred 60 mg daily Anoro/budesonide continued Continue FV, IS, Mucinex if patient needs continuous oxygen at discharge - asking for irrigation technician portable tank, ?Inogen (2) CVA (cerebral vascular accident): Plan: History of CVA No residual neurologic deficits, continue Plavix - continue atorvastatin (3) Hypertension: Plan: Continue Atenolol, losartan 40 mg - prn Lasix held on admission Plan Chronic stable issues Sleep apnea: Continue CPAP nightly Anxiety/depression: Continue venlafaxine DVT prophylaxis: Lovenox Disposition: continued inpatient stay Admission and Anticipated Discharge Date Admission Date: December 22, 2023 Supervising Physician Co-Signing Physician Notes Attending Attestation - Chart reviewed, care plan d/w CLARK Salas. I agree w/ the moreno components of her documentation. Cont abx/steroids/nebs/etc for COPD flare. Ismael Nix MD Subjective patient during up in the chair. Reports that she feels better than yesterday. Over the last couple days she has not been able to wear the oxygen only at rest, was not wearing it continuously. Is concerned about getting short of breath. Good apppetite the last few days, maybe some chills at home but no fever. Review of Systems Review of Systems: All systems reviewed & are unremarkable except as noted in Subjective Physical Exam Physical Exam: General: NAD, VS as above Resp: normal respiratory effort, on 2L, lungs diminished but no wheezing CV: RRR, no murmur, Abd: normal bowel sounds, non tender, no hepatosplenomegaly Extremities: Moves all extremities, no edema Neuro: A&O x3, Skin: intact, no lesions noted Results & Data Results & Data Vital Signs (Past 12 Hours) Vital Signs Temp Pulse Resp BP Pulse Ox O2 Del Method O2 Flow Rate 12/23/23 07:35 Nasal Cannula 2 12/23/23 07:24 65 16 95 Nasal Cannula 12/23/23 07:10 36.6 C 60 16 154/92 H 99 Nasal Cannula 2 Laboratory Results CBC and BMP PG Care Time/CCT Total # of Minutes Spent Total Time Spent with Patient: Total time spent is greater than 50% in coordination of care (as documented) at patient's floor/unit and/or counseling patient: Coding Level of Care Code 62646 SUB INP/OBS CARE 2/35MIN Diagnoses Acute bronchitis with chronic obstructive pulmonary disease (COPD) J44.0; J20.9 CVA (cerebral vascular accident) I63.9 Hypertension I10
[2023-12-24] MEDS: ONDANSETRON INJ 2 MG/ML 2 ML VIAL IV PRN (02:14)
[2023-12-24 06:43] LABS: Basophils # (auto) 0.02 K/uL (0.00-0.20); Basophils % (auto) 0.2 %; Eosinophils # (auto) 0.05 K/uL (0.00-0.50); Eosinophils % (auto) 0.6 %; Hematocrit (blood only) 41.8 % (37.0-47.0); Hemoglobin 13.4 g/dl (12.0-16.0); Immature Granulocytes # (auto) 0.03 K/uL (0.01-0.20); Immature Granulocytes % (auto) 0.4 %; Lymphocytes # (auto) 1.79 K/uL (1.20-3.40); Lymphocytes % (auto) 21.2 %; Mean Corpuscular Hemoglobin 29.6 pg (25.0-34.0); Mean Corpuscular Hgb Conc 32.1 g/dL (32.0-36.0); Mean Corpuscular Volume 92.3 fL (80.0-100.0); Mean Platelet Volume 9.3 fL (9.4-12.4); Monocytes # (auto) 1.02 K/uL (0.11-0.59); Monocytes % (auto) 12.1 %; Neutrophils # (auto) 5.53 K/uL (1.40-6.50); Neutrophils % (auto) 65.5 %; Platelet Count 220 K/uL (130-400); RDW Coefficient of Variation 14.2 % (11.5-14.5); RDW Standard Deviation 48.1 fL (36.4-46.3); Red Blood Count 4.53 M/uL (4.20-5.40); White Blood Count 8.44 K/ul (4.8-10.8)
[2023-12-24 07:17] LABS: BUN Creatinine Ratio 36.8 (10-20); Calcium 9.1 mg/dl (8.6-10.3); Creatinine Clr Calc Pharmacy 59.5 ml/min; Est GFR (African American) 85.9 ml/min; Est GFR (Non-African American) 74.1 ml/min; Potassium 4.6 mmol/L (3.5-5.1)
--- NOTE | 2023-12-24 09:45 | Hospitalist Progress Note ---
Date of Service December 24, 2023 Assessment & Plan (1) Acute bronchitis with chronic obstructive pulmonary disease (COPD): Plan: Acute on chronic hypoxic respiratory failure, suspect 2/2 acute on chronic COPD exacerbation. Prior to admission in Feb, she was only on 2L at bedtime. Two step at discharge recommend 2L with activity. Patient tried that but last few days, having to wear oxygen more consistently. Biofire negative BNP without significant elevation Ddimer elevation (noting 610, age adjusted normal, lower than prior ddimer), low risk for PE, defer CTA and treating as COPD exacerbation as below Methylprednisolone 60mg IV daily -- transition to prednisone 40mg PO for AM 12/24 (2 more days PO for 5 day course) Doxycycline PO BID (started 12/21, prior admit got azithromycin) Continue home nebs/inhalers, pulmonary toilet, incentive spirometer, flutter valve. mucinex BID Added hypertonic saline to help with mucus/clearance, monitor response Also added zyrtec, flonase for allergy symptoms Sputum reported yellow in color, cx if able to collect ordered Possible d/c 12/24 discussed with patient, PT/OT consulted while inpatient Labs Zita M Can repeat 2step/ambulatory pulse ox in AM to see if needs increased at all-- if patient needs continuous oxygen at discharge - asking for systems program manager portable tank, ?Inogen (2) CVA (cerebral vascular accident): Plan: History of CVA, no residual deficits reported Remains on plavix, atorvastatin (3) Hypertension: Plan: BP stable 151/81 Remains on atenolol, losartan daily PRN lasix on hold on admission, given LE edema (while reporting chronic), check daily weights/consider dose of lasix while on steroids Chronic stable issues Sleep apnea Ordered CPAP nightly - HAS DECLINE CPAP NIGHTLY WHILE INPATIENT. WILL NEED TO DISCUSS/ENCOURAGE COMPLIANCE IF NOT USING AT HOME Anxiety/depression: -Continue venlafaxine Plan DVT prophylaxis: Lovenox while inpatient Disposition: continued inpatient stay Hopeful dc 12/24 Admission and Anticipated Discharge Date Admission Date: December 22, 2023 Supervising Physician Co-Signing Physician Notes The patient was not seen by me. The chart was reviewed. Case discussed with CLARK Espinoza. Agree with assessment and plan Subjective Evaluated this morning, doing well. Still a little tight on the right with wheezing but improved. Cough, occassional yellow sputum. ON 2L. Reports concerns about relation to possible underlying allergies. She had been using nasal spray but ran out recently, not on any zyrtec/allergy medication at baseline. WIll add. Also discussed hypertonic saline to help clear secretions and plan for 2step tomorrow/possible dc. She reports good appetite but did have some nausea, resolved with zofran. Moving her bowels. Reports chronic LE edema, worse on the right at baseline. No increased edema/swelling/pain reported. NO fever/chills, chest pain or vomiting. Questions/concerns addressed at this time. Physical Exam Physical Exam: General: 78yo female sitting up in bed, NAD, fatigued appearing at times HEENT: nasal bogginess, +frontal sinus tenderness Resp: normal respiratory effort, on 2L, lungs diminished, faint expiratory wheezing on the right CV: RRR, no murmur, Abd: normal bowel sounds, non tender, no hepatosplenomegaly MSK/Neuro: nonfocal, follows commands, strength equal bilaterally chronic LE edema, R>L at baseline, calves nontender Psych: AOx3, cooperative with exam Results & Data Results & Data Vital Signs (Past 12 Hours) Vital Signs Temp Pulse Resp BP Pulse Ox O2 Del Method O2 Flow Rate 12/24/23 07:45 Nasal Cannula 2 12/24/23 07:09 55 L 18 96 Nasal Cannula 2 12/24/23 07:00 36.4 C L 58 L 16 151/81 H 96 Nasal Cannula 2 Laboratory Results 12/24/23 Range/Units 06:09 WBC 8.44 (4.8-10.8) K/ul RBC 4.53 (4.20-5.40) M/uL Hgb 13.4 (12.0-16.0) g/dl Hct 41.8 (37.0-47.0) % MCV 92.3 (80.0-100.0) fL MCH 29.6 (25.0-34.0) pg MCHC 32.1 (32.0-36.0) g/dL RDW Std Deviation 48.1 H (36.4-46.3) fL RDW Coeff of Enoc 14.2 (11.5-14.5) % Plt Count 220 (130-400) K/uL MPV 9.3 L (9.4-12.4) fL Immature Gran % (Auto) 0.4 % Neut % (Auto) 65.5 % Lymph % (Auto) 21.2 % Mower % (Auto) 12.1 % Eos % (Auto) 0.6 % Baso % (Auto) 0.2 % Neut # (Auto) 5.53 (1.40-6.50) K/uL Lymph # (Auto) 1.79 (1.20-3.40) K/uL Mower # (Auto) 1.02 H (0.11-0.59) K/uL Eos # (Auto) 0.05 (0.00-0.50) K/uL Baso # (Auto) 0.02 (0.00-0.20) K/uL Immature Gran # (Auto) 0.03 (0.01-0.20) K/uL Sodium 137 (136-145) mmol/L Potassium 4.6 (3.5-5.1) mmol/L Chloride 102 (98-107) mmol/L Carbon Dioxide 30 (21-32) mmol/L Anion Gap 5 (3-11) BUN 28 H (6-23) mg/dl Creatinine 0.76 (0.6-1.2) mg/dl Est Cr Clr Drug Dosing 59.5 ml/min Est GFR ( Amer) 85.9 ml/min Est GFR (Non-Af Amer) 74.1 ml/min BUN/Creatinine Ratio 36.8 H (10-20) Glucose 91 (70-99(Fasting)) mg/dl Calcium 9.1 (8.6-10.3) mg/dl PG Care Time/CCT Total # of Minutes Spent Total Time Spent with Patient: Total time spent is greater than 50% in coordination of care (as documented) at patient's floor/unit and/or counseling patient: Coding Level of Care Code 84939 SUB INP/OBS CARE 3/50MIN Diagnoses Acute bronchitis with chronic obstructive pulmonary disease (COPD) J44.0; J20.9 CVA (cerebral vascular accident) I63.9 Hypertension I10
[2023-12-24] MEDS: CETIRIZINE HCL 10 MG TABLET PO SCH (10:55)
[2023-12-24] MEDS: FLUTICASONE PROPIONATE NA SPR 16 GM BTL SCH (10:55)
--- NOTE | 2023-12-24 14:34 | XRay Report ---
XR chest 2V PA/lateral HISTORY: Dyspnea. COMPARISON: Chest 12/22/2023. FINDINGS: No pneumothorax. No pleural effusions. The heart remains mildly enlarged. There is a calcif ied thoracic aorta again noted. Left basilar linear densities persist and favor subsegmental atelecta sis. No new focal lung consolidations to suggest a pneumonia. No evidence for pulmonary edema. Mild c hronic interstitial thickening persists. No acute fractures. Mild biapical pleural thickening remains unchanged. IMPRESSION: No significant change compared to the prior study. No acute process. ACT 112: Negative or not required by law. Electronically signed by: Nate Singleton M.D. 12/24/2023 2:33 PM
[2023-12-24] MEDS: FUROSEMIDE 40 MG TAB PO ONE (16:09)
[2023-12-24] MEDS: SODIUM CHLOR 7% 4 ML NEB NEB SCH (19:34)
[2023-12-25] MEDS: NYSTATIN CR 15 GM TUBE EXT SCH (02:54)
[2023-12-25 07:30] LABS: Basophils # (auto) 0.02 K/uL (0.00-0.20); Basophils % (auto) 0.2 %; Eosinophils # (auto) 0.02 K/uL (0.00-0.50); Eosinophils % (auto) 0.2 %; Hematocrit (blood only) 41.6 % (37.0-47.0); Hemoglobin 13.2 g/dl (12.0-16.0); Immature Granulocytes # (auto) 0.03 K/uL (0.01-0.20); Immature Granulocytes % (auto) 0.3 %; Lymphocytes # (auto) 1.82 K/uL (1.20-3.40); Lymphocytes % (auto) 20.9 %; Mean Corpuscular Hemoglobin 29.5 pg (25.0-34.0); Mean Corpuscular Hgb Conc 31.7 g/dL (32.0-36.0); Mean Corpuscular Volume 92.9 fL (80.0-100.0); Mean Platelet Volume 9.6 fL (9.4-12.4); Monocytes # (auto) 1.08 K/uL (0.11-0.59); Monocytes % (auto) 12.4 %; Neutrophils # (auto) 5.75 K/uL (1.40-6.50); Platelet Count 223 K/uL (130-400); RDW Coefficient of Variation 14.3 % (11.5-14.5); Red Blood Count 4.48 M/uL (4.20-5.40); White Blood Count 8.72 K/ul (4.8-10.8)
[2023-12-25 08:31] LABS: Calcium 9.2 mg/dl (8.6-10.3); Magnesium 2.2 mg/dl (1.7-2.4); Potassium 4.3 mmol/L (3.5-5.1)
[2023-12-25] MEDS: predniSONE 20 MG TAB PO SCH (08:31)
--- NOTE | 2023-12-25 08:32 | Hospitalist Progress Note ---
Date of Service December 25, 2023 Assessment & Plan (1) Acute bronchitis with chronic obstructive pulmonary disease (COPD): Plan: Acute on chronic hypoxic respiratory failure, suspect 2/2 acute on chronic COPD exacerbation. Prior to admission in Feb, she was only on 2L at bedtime. Two step at discharge recommend 2L with activity. Patient tried that but last few days, having to wear oxygen more consistently. Biofire negative BNP without significant elevation Ddimer elevation (noting 610, age adjusted normal, lower than prior ddimer), low risk for PE, defer CTA and treating as COPD exacerbation as below Methylprednisolone 60mg IV daily -- transition to prednisone 40mg PO for AM 12/24 (2 more days PO for 5 day course, consider tapering to complete) Doxycycline PO BID (started 12/21, prior admit got azithromycin) Continue home nebs/inhalers, pulmonary toilet, incentive spirometer, flutter valve. mucinex BID Added hypertonic saline to help with mucus/clearance, monitor response Also added zyrtec, flonase for allergy symptoms Sputum reported yellow in color, cx if able to collect ordered 12/24 Patient 96% on 2L at rest. Nursing walked and was in 80s at rest, placed on 2L. Did drop to 89% w/ ambulation on 2L and rebounded to 90-92% and remains on 2L at present Was provided 40mg PO lasix yesterday, repeat ordered for today Transitioned to PO prednisone for today and consider tapering at discharge(day 4) -- Doxy PO BID x 5 day course for now -- Added hypertonic saline nebs, flonase/zyrtec for allergy symptoms --> reports able to expectorate sputum now, cx pending (notes moderate WBC, moderate epis, few gram positive cocci, rare gram positive bacilli) PT/OT consults pending Of note, has declined her CPAP while inpatient, compliance to be encouraged. Can repeat 2step/ambulatory pulse ox in AM to see if needs increased at all-- if patient needs continuous oxygen at discharge - asking for pelt grader portable tank, ?Inogen (2) CVA (cerebral vascular accident): Plan: History of CVA, no residual deficits reported Remains on plavix, atorvastatin (3) Hypertension: Plan: BP stable 154/89 Remains on atenolol, losartan daily PRN lasix on hold on admission, given LE edema (while reporting chronic), check daily weights/lasix as outlined above Chronic stable issues Sleep apnea Ordered CPAP nightly - HAS DECLINE CPAP NIGHTLY WHILE INPATIENT. WILL NEED TO DISCUSS/ENCOURAGE COMPLIANCE IF NOT USING AT HOME Anxiety/depression: -Continue venlafaxine - support provided Plan DVT prophylaxis: Lovenox while inpatient Disposition: continued inpatient stay, transitioned to PO prednisone, continue doxy and f/u sputum cx PT/OT consults pending and hopeful able to dc 12/25 Can repeat 2step/ambulatory pulse ox in AM to see if needs increased at all-- if patient needs continuous oxygen at discharge - asking for pelt grader portable tank, ?Inogen . CM will need updated rx at dc Admission and Anticipated Discharge Date Admission Date: December 22, 2023 Supervising Physician Co-Signing Physician Notes The patient was not seen by me. The chart was reviewed. Case discussed with CLARK Espinoza. Agree with assessment and plan Subjective Evaluated before lunch, sitting up in chair. On 2L at rest. Feeling discouraged as her oxygen dropped to 89% with ambulation on 2L, rebounded but did require 2L at rest after being off. Leg edema improved since lasix, productive cough and clearance of sputum since hypertonic saline and will continue. Discussed additional dose for today, this morning, as she was upset about having to urinate 7 times last night after dose given in afternoon. No CP, fever/chills. Good appetite. No nausea/vomiting. Will plan for official repeat 2step/ambulatory pulse ox tomorrow pending status/possible discharge. Questions/concerns addressed at this time. Physical Exam 2 Physical Exam: General: 78yo female sitting up in chair, upset about her oxygen dropping at rest, reassurance provided HEENT: nasal bogginess, +frontal sinus tenderness improved Resp: normal respiratory effort, on 2L, lungs diminished, no further significant wheezing CV: RRR, no murmur, decreased LE edema/wrinkling of skin, calves nontender Abd: normal bowel sounds, non tender, no hepatosplenomegaly MSK/Neuro: nonfocal, follows commands, strength equal bilaterally chronic LE edema (decreased), R>L at baseline, calves nontender Psych: AOx3, cooperative with exam Results & Data Results & Data Vital Signs (Past 12 Hours) Vital Signs Temp Pulse Resp BP Pulse Ox O2 Del Method O2 Flow Rate 12/25/23 07:35 55 L 18 96 Nasal Cannula 2 12/25/23 07:19 36.5 C 54 L 16 154/89 H 96 Nasal Cannula 2 12/24/23 21:24 36.9 C 120/68 12/24/23 20:38 Nasal Cannula 2 Laboratory Results 12/25/23 06:36 12/25/23 06:36 Mag 2.2 Diagnostic Findings Chest X-Ray 12/24/23 12:58 XR chest 2V PA/lateral HISTORY: Dyspnea. COMPARISON: Chest 12/22/2023. FINDINGS: No pneumothorax. No pleural effusions. The heart remains mildly enlarged. There is a calcified thoracic aorta again noted. Left basilar linear densities persist and favor subsegmental atelectasis. No new focal lung consolidations to suggest a pneumonia. No evidence for pulmonary edema. Mild chronic interstitial thickening persists. No acute fractures. Mild biapical pleural thickening remains unchanged. IMPRESSION: No significant change compared to the prior study. No acute process. ACT 112: Negative or not required by law. Electronically signed by: Nate Singleton M.D. 12/24/2023 2:33 PM PG Care Time/CCT Total # of Minutes Spent Total Time Spent with Patient: Total time spent is greater than 50% in coordination of care (as documented) at patient's floor/unit and/or counseling patient: Coding Level of Care Code 44154 SUB INP/OBS CARE 3/50MIN Diagnoses Acute bronchitis with chronic obstructive pulmonary disease (COPD) J44.0; J20.9 CVA (cerebral vascular accident) I63.9 Hypertension I10
[2023-12-25 08:37] LABS: Est GFR (African American) 68.2 ml/min; Est GFR (Non-African American) 58.8 ml/min
[2023-12-25] MEDS: FUROSEMIDE 40 MG TAB PO ONE (12:09)
[2023-12-26 08:07] LABS: Albumin Globulin Ratio 1.4 (0.9-2); Albumin Level 3.5 gm/dl (3.4-5.0); BUN Creatinine Ratio 43.7 (10-20); Bilirubin,Total 0.4 mg/dl (0.2-1.0); Calcium 9.1 mg/dl (8.6-10.3); Creatinine Clr Calc Pharmacy 51.8 ml/min; Est GFR (African American) 72.9 ml/min; Est GFR (Non-African American) 62.9 ml/min; Globulin 2.5 gm/dl (2.5-4.0); Potassium 4.2 mmol/L (3.5-5.1)
[2023-12-26 08:21] LABS: Thyroid Stimulating Hormone 0.425 uIu/ml (0.300-4.500)
--- NOTE | 2023-12-26 08:47 | Hospitalist Progress Note ---
Date of Service December 26, 2023 Assessment & Plan (1) Acute bronchitis with chronic obstructive pulmonary disease (COPD): Plan: Acute on chronic hypoxic respiratory failure, suspect 2/2 acute on chronic COPD exacerbation. Prior to admission in Feb, she was only on 2L at bedtime. Two step at discharge recommend 2L with activity. Patient tried that but last few days, having to wear oxygen more consistently. Biofire negative Ddimer elevation (noting 610, age adjusted normal, lower than prior ddimer), low risk for PE, defer CTA and treating as COPD exacerbation as below BNP without significant elevation, however suspect some aspect of fluid retention most recently from IV steroids Methylprednisolone IV transitioned to prednisone 40mg PO 12/24 and plan to complete course 12/26 Doxycycline BID x 5 day course Sputum cx obtained, light normal shell on preliminary -- follow WBC wnl, afebrile Added flonase, zyrtec for allergy symptoms prior and appears improved Continue mucinex, pulmonary toilet and added hypertonic saline for secretions Lasix 40mg PO on 12/23, 12/24 w/ good results and improvement in weights/leg edema and ordered 40mg IV lasix x 1 for today to see if continued improvement Did consider repeating CTA chest today however repeated ddimer first --> was NORMAL @ 390. -CXR w/o acute finding. KUB obtained for abdominal cramping/constipation (has seen GI in past for such, miralax increased to TID, to get home lubiprostone and ordered enema and will monitor) Unable to tolerate nasal pillows overnight, continue 2L HS but suspect that would be beneficial Supplemental O2 to maintain sats and titrate as able to prevent over correction Consideration for CT chest (not for PE, just CT chest) if ongoing issues for further eval Can repeat 2step/ambulatory pulse ox in AM to see if needs increased at all-- if patient needs continuous oxygen at discharge - asking for roll former portable tank, ?Inogen (2) CVA (cerebral vascular accident): Plan: History of CVA, no residual deficits reported Remains on plavix, atorvastatin No focal deficits on exam, alert/oriented (3) Hypertension: Plan: BP stable 150/72 Remains on atenolol, losartan daily PRN lasix on hold on admission, however had increased LE edema and provided home PO lasix past 2 days and ordering dose of IV for today as outlined Monitor weight on repeat/I*O Chronic stable issues Sleep apnea Ordered CPAP nightly - HAS DECLINED CPAP NIGHTLY WHILE INPATIENT. Richiehter discussion w/ patient on 12/24 had sleep study ~4 years ago and unable to tolerate due to claustrophobia and sent back. ?Suspect contributing to R sided HF symptoms likely. Anxiety/depression: Continue venlafaxine, support provided (4) Chest pain: Plan: episode of CP reported but not alerted to nursing per patient. Lasted about 10 seconds, self resolved. No associated worsened SOB/palpitations/radiation/etc EKG obtained, Sinus erica/no acute finding. Troponin added and was normal. No need to move to monitored bed and suspect could have been referred pain from her constipation (KUB noting large amount of stool within the colon and rectum, particularly within the left colon) Bowel regimen as outlined, enema x 1 and will monitor EKG w/ CP ordered if any further issues (5) Constipation: Plan: Has seen GI in past. Had been moving bowels daily while inpatient until last 2 days. Had not gotten some lubiprostone and was resumed miralax increased to TID as above per prior GI recs and will monitor Patient is passing a lot of gas, no evicence for obstruction on KUB but does note large amt stool colon/rectum, primarily L colon on imaging and will monitor Plan DVT prophylaxis: Lovenox while inpatient Lasix IV x 1, continue pulmonary toilet. F/u constipation Possible dc tomorrow pending O2 needs and can repeat 2step/ambulatory pulse ox in AM to see if needs increased at all-- if patient needs continuous oxygen at discharge - asking for roll former portable tank, ?Inogen . CM will need updated rx at dc Admission and Anticipated Discharge Date Admission Date: December 22, 2023 Supervising Physician Co-Signing Physician Notes The patient was not seen by me. The chart was reviewed. Case discussed with CLARK Espinoza. Agree with assessment and plan Subjective Evaluated this morning, doing better as far as breathing. Less cough, able to expectorate sputum. Did report episode of chest pain for about 10 seconds earlier to her left breast/chest, no radiation/increased shortness of breath. Denies any palpitations. Reports she does have a little bit of abdominal discomfort today, passing gas but no BM in 2 days. Typically had been moving her bowels daily. Abdomen is slightly full, no overt tenderness/rebound but does have some stool on right side. Discussed breathing/will plan for Ct chest for further eval with pre-treatment. Leg edema much improved. Per daughter, reports had NOT had leg swelling like this or abdominal swelling at home ever, wondering if related to steroids possibly. Physical Exam Physical Exam: General: 78yo female sitting up in chair, appears improved, NAD, on phone with her daughter HEENT: nasal bogginess, +frontal sinus tenderness RESOLVED Resp: normal respiratory effort, on 2L, lungs diminished, no further significant wheezing CV: RRR, no murmur, decreased LE edema/wrinkling of skin, calves nontender Abd: +BS, but slightly distended, no overt tenderness but reporting some cramping, no warmth/rebound MSK/Neuro: nonfocal, follows commands, strength equal bilaterally chronic LE edema (decreased, wrinkling of skin), R>L at baseline, calves nontender Psych: AOx3, cooperative with exam Results & Data Results & Data Vital Signs (Past 12 Hours) Vital Signs Temp Pulse Resp BP Pulse Ox O2 Del Method O2 Flow Rate 12/26/23 08:19 36.7 C 50 L 16 150/72 H 95 Nasal Cannula 2 12/26/23 07:29 58 L 18 96 Nasal Cannula 2 12/26/23 07:15 Nasal Cannula 2 Laboratory Results 12/26/23 12/26/23 Range/Units 09:37 06:55 D-Dimer 390 (0-500) ug/L FEU Sodium 140 (136-145) mmol/L Potassium 4.2 (3.5-5.1) mmol/L Chloride 102 (98-107) mmol/L Carbon Dioxide 34 H (21-32) mmol/L Anion Gap 4 (3-11) BUN 38 H (6-23) mg/dl Creatinine 0.87 (0.6-1.2) mg/dl Est Cr Clr Drug Dosing 51.8 ml/min Est GFR ( Amer) 72.9 ml/min Est GFR (Non-Af Amer) 62.9 ml/min BUN/Creatinine Ratio 43.7 H (10-20) Glucose 78 (70-99(Fasting)) mg/dl Calcium 9.1 (8.6-10.3) mg/dl Total Bilirubin 0.4 (0.2-1.0) mg/dl AST 14 (13-39) U/L ALT 17 (7-52) U/L Alkaline Phosphatase 76 (34-104) U/L Troponin I High Sens 7.4 (0-14) pg/ml Total Protein 6.0 (6.0-8.3) gm/dl Albumin 3.5 (3.4-5.0) gm/dl Globulin 2.5 (2.5-4.0) gm/dl Albumin/Globulin Ratio 1.4 (0.9-2) TSH 0.425 (0.300-4.500) uIu/ml Diagnostic Findings KUB X-Ray 12/26/23 09:16 KUB CLINICAL HISTORY: Abdominal pain. Constipation. COMPARISON STUDY: CT of the abdomen and pelvis December 17, 2023. Abdominal series December 16, 2023. FINDINGS: There is a very large amount of stool stool within the left colon. There is a moderate amount of stool within the remainder of the colon. There is a moderate to large amount of stool within the rectum. There is no evidence for a bowel obstruction. IMPRESSION: 1. Large amount of stool within the colon and rectum, particularly within the left colon. 2. No evidence for a bowel obstruction. ACT 112: Negative or not required by law. Electronically signed by: João Villatoro M.D. 12/26/2023 10:27 AM Chest X-Ray 12/26/23 09:24 XR chest 2V PA/lateral CLINICAL HISTORY: f/u COMPARISON STUDY: Chest CT November 24, 2023. Chest radiograph December 24, 2023. FINDINGS: Lung volumes are normal. Lungs are clear. There is no pneumothorax or pleural effusion. Cardiomegaly is unchanged. Mediastinal contours are normal. There is no evidence for pulmonary edema. IMPRESSION: No acute cardiopulmonary findings. No change in appearance of the chest. ACT 112: Negative or not required by law. Electronically signed by: João Villatoro M.D. 12/26/2023 10:22 AM PG Care Time/CCT Total # of Minutes Spent Total Time Spent with Patient: Total time spent is greater than 50% in coordination of care (as documented) at patient's floor/unit and/or counseling patient: Coding Level of Care Code 10879 SUB INP/OBS CARE 3/50MIN Diagnoses Acute bronchitis with chronic obstructive pulmonary disease (COPD) J44.0; J20.9 CVA (cerebral vascular accident) I63.9 Hypertension I10 Chest pain R07.9 Constipation K59.00
[2023-12-26] MEDS: POLYETHYLENE (MIRALAX) 17 GM PACK PO PRN ×2 (08:56→12:33)
[2023-12-26 09:51] LABS: Troponin I High Sensitivity 7.4 pg/ml (0-14)
[2023-12-26 10:22] LABS: D Dimer 390 ug/L FEU (0-500)
--- NOTE | 2023-12-26 10:23 | XRay Report ---
XR chest 2V PA/lateral CLINICAL HISTORY: f/u COMPARISON STUDY: Chest CT November 24, 2023. Chest radiograph December 24, 2023. FINDINGS: Lung volumes are normal. Lungs are clear. There is no pneumothorax or pleural effusion. Car diomegaly is unchanged. Mediastinal contours are normal. There is no evidence for pulmonary edema. IMPRESSION: No acute cardiopulmonary findings. No change in appearance of the chest. ACT 112: Negative or not required by law. Electronically signed by: João Villatoro M.D. 12/26/2023 10:22 AM
--- NOTE | 2023-12-26 10:29 | XRay Report ---
[facility] CLINICAL HISTORY: Abdominal pain. Constipation. COMPARISON STUDY: CT of the abdomen and pelvis December 17, 2023. Abdominal series December 16, 2023. FINDINGS: There is a very large amount of stool stool within the left colon. There is a moderate amou nt of stool within the remainder of the colon. There is a moderate to large amount of stool within th e rectum. There is no evidence for a bowel obstruction. IMPRESSION: 1. Large amount of stool within the colon and rectum, particularly within the left colon. 2. No evidence for a bowel obstruction. ACT 112: Negative or not required by law. Electronically signed by: João Villatoro M.D. 12/26/2023 10:27 AM
[2023-12-26] MEDS ORDERED: SOD PHOSPHATE/SOD BIPHOSPHATE ENEMA 132 ML BTL PR PRN (10:36)
[2023-12-26] MEDS: FUROSEMIDE 40 MG/4 ML VIAL IV ONE (11:21)
[2023-12-27] MEDS: ALBUT/IPRATROP 3MG/0.5MG NEB 3 ML VIAL NEB PRN (05:09)
--- NOTE | 2023-12-27 05:11 | Communication Note ---
Date of Service: December 27, 2023 Nursing informed resident of 10/10 acute onset headache that did not respond to Tylenol therapy starting at around midnight. Patient evaluated at bedside. Well appearing in NAD. Describes pain as irritating. Denies pounding/throbbing headache. Patient HDS, no CP or SOB, no vision changes - blurry vision or double vision, would not say this is the worst headache of her life. Patient reports second dose of Tylenol did significantly improve symptoms. Attributes headache to roommate's TV volume level and fatigue. Acute onset 10/10 headache can be concerning for acute intracranial hemorrhage. Patient no longer with 10/10 pain. Tylenol did improve symptoms. No warning signs. Would defer on imaging at this time as patient HDS and improved. Given Mg 1g x 1 as this can help with headaches. Would recommend continuing Tylenol Q4H PRN. See attending attestation for further documentation. Resident Activity Tracking Resident Involvement: Resident Care Provided Care Provided: Adult Hospital Medicine
[2023-12-27] MEDS: MAGNESIUM SULFATE / D5W 1 GM/100 ML BAG IV ONE (05:40)
[2023-12-27 06:27] LABS: Hematocrit (blood only) 43.9 % (37.0-47.0); Hemoglobin 13.8 g/dl (12.0-16.0); Mean Corpuscular Hemoglobin 29.1 pg (25.0-34.0); Mean Corpuscular Hgb Conc 31.4 g/dL (32.0-36.0); Mean Corpuscular Volume 92.6 fL (80.0-100.0); Mean Platelet Volume 9.4 fL (9.4-12.4); Platelet Count 251 K/uL (130-400); RDW Coefficient of Variation 14.3 % (11.5-14.5); RDW Standard Deviation 48.7 fL (36.4-46.3); Red Blood Count 4.74 M/uL (4.20-5.40); White Blood Count 9.81 K/ul (4.8-10.8)
[2023-12-27 06:49] LABS: BUN Creatinine Ratio 43.8 (10-20); Calcium 9.3 mg/dl (8.6-10.3); Est GFR (African American) 64.7 ml/min; Est GFR (Non-African American) 55.9 ml/min; Magnesium 2.3 mg/dl (1.7-2.4); Potassium 4.4 mmol/L (3.5-5.1)
--- NOTE | 2023-12-27 08:27 | Hospitalist Progress Note ---
Date of Service December 27, 2023 Assessment & Plan (1) Acute bronchitis with chronic obstructive pulmonary disease (COPD): Plan: Acute on chronic hypoxic respiratory failure, suspect 2/2 acute on chronic COPD exacerbation. Prior to admission in Feb, she was only on 2L at bedtime. Two step at discharge recommend 2L with activity. Patient tried that but last few days, having to wear oxygen more consistently. Biofire negative Ddimer elevation (noting 610, age adjusted normal, lower than prior ddimer), low risk for PE, defer CTA and treating as COPD exacerbation as below BNP without significant elevation, however suspect some aspect of fluid retention most recently from IV steroids Methylprednisolone IV transitioned to prednisone 40mg PO 12/24 and plan to complete course 12/26 Doxycycline BID x 5 day course Sputum cx obtained, light normal shell on preliminary -- follow Added flonase, zyrtec for allergy symptoms prior and appears improved Continue mucinex, pulmonary toilet and added hypertonic saline for secretions Lasix 40mg PO on 12/23, 12/24 w/ good results and improvement in weights/leg edema and ordered 40mg IV lasix x 1 for today to see if continued improvement Did consider repeating CTA chest today however repeated ddimer --> was NORMAL @ 390. -CXR w/o acute finding. KUB obtained for abdominal cramping/constipation (has seen GI in past for such, miralax increased to TID, to get home lubiprostone and ordered enema and will monitor) Unable to tolerate nasal pillows overnight, continue 2L HS but suspect that would be beneficial Supplemental O2 to maintain sats and titrate as able to prevent over correction 12/26 Headache overnight, since resolved. ?Stress, volume from TV from roommate. Tylenol available as needed. WBC wnl, afebrile Cr stable w/ increased lasix IV dose 12/25 however leg edema looks much improved and renal function stable and will continue 40mg PO daily but make scheduled and see if able to decrease once off steroids Patient to weigh herself at home +BM overnight, +BS on exam and continue bowel regimen as outlined Making Duonebs BID scheduled as taking at home Consideration M-W-F Azithro again once completed Doxy as prior taking w/ pulm (CM to arrange f/u appt Dr Inman) Prednisone/Doxy to be completed today Titrate O2 as able Can repeat 2step/ambulatory pulse ox in AM to see if needs increased at all-- if patient needs continuous oxygen at discharge - asking for social work specialist portable tank, ?Inogen (2) Sleep apnea: Plan: CPAP ordered HS on admission, HOWEVER PATIENT HAS NOT USED IN ~4 yrs, claustrophobic. Attempted nasal pillows overnight 12/24 and was UNABLE to tolerate 2L HS, lasix as above (3) CVA (cerebral vascular accident): Plan: History of CVA, no residual deficits reported Remains on plavix, atorvastatin No focal deficits on exam, alert/oriented (4) Hypertension: Plan: BP stable 136/77 Remains on atenolol, losartan daily and now on scheduled lasix w/ improvement in BP 136/77. Discussed benefit w/ better BP control given her underlying VIRA not treated and likely having some sx R sided HF as well (5) Chest pain: Plan: episode of CP reported 12/25 AM but not alerted to nursing per patient. Lasted about 10 seconds, self resolved. No associated worsened SOB/palpitations/radiation/etc EKG obtained, Sinus erica/no acute finding. Troponin added and was normal. 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 +BS on exam, passing lots of gas Anxiety/depression: Continue venlafaxine, support provided Plan DVT prophylaxis: Lovenox SQ while inpatient Scheduling PO lasix, complete course Doxy/prednisone for today. Plan for repeat 2step in AM to see about social work specialist portable take and can give CM rx for Inogen/portability if needed. Admission and Anticipated Discharge Date Admission Date: December 22, 2023 Supervising Physician Co-Signing Physician Notes The patient was not seen by me. The chart was reviewed. Case discussed with CLARK Espinoza. Agree with assessment and plan Subjective Evaluated this morning, had a rough night with reported headache. Did get tylenol x 2, magnesium. Reports headache resolved at present time. She notes she had increased sputum clearance last night with the hypertonic saline and would like to hold off further of that for now. Lungs without as much mucus/upper congestion, no wheezing and will discontinue but will order duoneb scheduled as hasn't gotten and takes 2x/kartik daily at home with as needed in between. Discussed air purifier for home for environmental factors - they had one but dog chewed the cord and are planning to get new one. Leg edema MUCH improved. Discussed needing to continue lasix 40mg PO daily for now but steroids to be completed and will monitor with weights at home to see if needing daily vs more frequent. Continued inpatient stay overnight. Of note, she does report she still takes Azithromycin per pulm for prophylaxis. Will resume once completed her course of Doxy for today. Questions/concerns addressed at this time. Son updated at bedside. Physical Exam Physical Exam: General: 78yo female sitting up in chair, appears improved, NAD, son at bedside HEENT: nasal bogginess, +frontal sinus tenderness RESOLVED Resp: normal respiratory effort, on 2L, lungs diminished, no further wheezing CV: RRR, no murmur, decreased LE edema/wrinkling of skin, calves nontender Abd: +BS, but slightly distended, no overt tenderness but reporting some cramping, no warmth/rebound MSK/Neuro: nonfocal, follows commands, strength equal bilaterally chronic LE edema (decreased, wrinkling of skin), R>L at baseline, calves nontender Psych: AOx3, cooperative with exam Results & Data Results & Data Vital Signs (Past 12 Hours) Vital Signs Temp Pulse Resp BP Pulse Ox O2 Del Method O2 Flow Rate 12/27/23 07:51 36.7 C 81 18 136/77 93 Room Air 12/27/23 06:57 61 17 95 Nasal Cannula 2 12/27/23 05:15 36.6 C 50 L 14 133/82 95 Nasal Cannula 2 12/27/23 05:09 50 L 18 96 Nasal Cannula 2 12/26/23 21:23 36.6 C 61 18 124/77 93 Nasal Cannula 2 12/26/23 21:00 Nasal Cannula 2 Laboratory Results 12/27/23 12/27/23 Range/Units 05:57 05:53 WBC 9.81 (4.8-10.8) K/ul RBC 4.74 (4.20-5.40) M/uL Hgb 13.8 (12.0-16.0) g/dl Hct 43.9 (37.0-47.0) % MCV 92.6 (80.0-100.0) fL MCH 29.1 (25.0-34.0) pg MCHC 31.4 L (32.0-36.0) g/dL RDW Std Deviation 48.7 H (36.4-46.3) fL RDW Coeff of Enoc 14.3 (11.5-14.5) % Plt Count 251 (130-400) K/uL MPV 9.4 (9.4-12.4) fL Sodium 140 (136-145) mmol/L Potassium 4.4 (3.5-5.1) mmol/L Chloride 100 (98-107) mmol/L Carbon Dioxide 34 H (21-32) mmol/L Anion Gap 6 (3-11) BUN 42 H (6-23) mg/dl Creatinine 0.96 (0.6-1.2) mg/dl Est Cr Clr Drug Dosing 47.0 ml/min Est GFR ( Amer) 64.7 ml/min Est GFR (Non-Af Amer) 55.9 ml/min BUN/Creatinine Ratio 43.8 H (10-20) Glucose 80 (70-99(Fasting)) mg/dl Calcium 9.3 (8.6-10.3) mg/dl Magnesium 2.3 (1.7-2.4) mg/dl PG Care Time/CCT Total # of Minutes Spent Total Time Spent with Patient: Total time spent is greater than 50% in coordination of care (as documented) at patient's floor/unit and/or counseling patient: Coding Level of Care Code 92637 SUB INP/OBS CARE 3/50MIN Diagnoses Acute bronchitis with chronic obstructive pulmonary disease (COPD) J44.0; J20.9 Sleep apnea G47.30 CVA (cerebral vascular accident) I63.9 Hypertension I10 Chest pain R07.9 Constipation K59.00
[2023-12-27] MEDS: FUROSEMIDE 40 MG TAB PO SCH (09:00)
--- NOTE | 2023-12-27 11:53 | Electrocardiogram Report ---
Test Reason : Blood Pressure : / mmHG Vent. Rate : 057 BPM Atrial Rate : 057 BPM P-R Int : 170 ms QRS Dur : 084 ms QT Int : 404 ms P-R-T Axes : 047 008 056 degrees QTc Int : 393 ms Sinus bradycardia Otherwise normal ECG When compared with ECG of 22-DEC-2023 11:12, No significant change was found Confirmed by Carter Edwards ([id number] on 12/27/2023 11:53:14 AM Referred By: REFERRED SELF Confirmed By:Luciano Edwards
[2023-12-27] MEDS: MAGNESIUM HYDROXIDE SUSP 30 ML UDC PO PRN (13:44)
[2023-12-27] MEDS: ALBUT/IPRATROP 3MG/0.5MG NEB 3 ML VIAL NEB SCH (15:47)
[2023-12-28 06:37] LABS: Albumin Globulin Ratio 1.5 (0.9-2); Albumin Level 3.5 gm/dl (3.4-5.0); BUN Creatinine Ratio 41.4 (10-20); Bilirubin,Total 0.4 mg/dl (0.2-1.0); Calcium 8.9 mg/dl (8.6-10.3); Creatinine Clr Calc Pharmacy 51.8 ml/min; Est GFR (African American) 72.9 ml/min; Est GFR (Non-African American) 62.9 ml/min; Globulin 2.3 gm/dl (2.5-4.0); Magnesium 2.5 mg/dl (1.7-2.4); Potassium 4.6 mmol/L (3.5-5.1); Total Protein 5.8 gm/dl (6.0-8.3)
--- NOTE | 2023-12-28 08:46 | Hospitalist Progress Note ---
Date of Service December 28, 2023 Assessment & Plan (1) Acute bronchitis with chronic obstructive pulmonary disease (COPD): Plan: Acute on chronic hypoxic respiratory failure, suspect 2/2 acute on chronic COPD exacerbation. Prior to admission in Feb, she was only on 2L at bedtime. Two step at discharge recommend 2L with activity. Patient tried that but last few days, having to wear oxygen more consistently. Biofire negative Ddimer elevation (noting 610, age adjusted normal, lower than prior ddimer), low risk for PE, defer CTA and treating as COPD exacerbation as below BNP without significant elevation, however suspect some aspect of fluid retention most recently from IV steroids Methylprednisolone IV transitioned to prednisone 40mg PO 12/24 and plan to complete course 12/26 Doxycycline BID x 5 day course Sputum cx obtained, light normal shell on preliminary -- follow Added flonase, zyrtec for allergy symptoms prior and appears improved Continue mucinex, pulmonary toilet and added hypertonic saline for secretions Lasix 40mg PO on 12/23, 12/24 w/ good results and improvement in weights/leg edema and ordered 40mg IV lasix x 1 for today to see if continued improvement Did consider repeating CTA chest today however repeated ddimer --> was NORMAL @ 390. -CXR w/o acute finding. KUB obtained for abdominal cramping/constipation (has seen GI in past for such, miralax increased to TID, to get home lubiprostone and ordered enema and will monitor) Unable to tolerate nasal pillows overnight, continue 2L HS but suspect that would be beneficial Supplemental O2 to maintain sats and titrate as able to prevent over correction 12/26 Headache overnight, since resolved. ?Stress, volume from TV from roommate. Tylenol available as needed. WBC wnl, afebrile Cr stable w/ increased lasix IV dose 12/25 however leg edema looks much improved and renal function stable and will continue 40mg PO daily but make scheduled and see if able to decrease once off steroids Patient to weigh herself at home +BM overnight, +BS on exam and continue bowel regimen as outlined Making Duonebs BID scheduled as taking at home Consideration M-W-F Azithro again once completed Doxy as prior taking w/ pulm (CM to arrange f/u appt Dr Inman) Prednisone/Doxy to be completed today Titrate O2 as able Can repeat 2step/ambulatory pulse ox in AM to see if needs increased at all-- if patient needs continuous oxygen at discharge - asking for front elevator operator portable tank, ?Inogen 12/27 - stopped prednisone, completed course doxy, duonebs scheduled BID -- B12 low 156, IM replacement x 1, can continue if staying inpatient but otherwise continue 1000mcg PO daily at dc (2) Sleep apnea: Plan: CPAP ordered HS on admission, HOWEVER PATIENT HAS NOT USED IN ~4 yrs, claustrophobic. Attempted nasal pillows overnight 12/24 and was UNABLE to tolerate 2L HS, lasix as above (3) CVA (cerebral vascular accident): Plan: History of CVA, no residual deficits reported Remains on plavix, atorvastatin No focal deficits on exam, alert/oriented (4) Hypertension: Plan: BP stable 136/77 Remains on atenolol, losartan daily and now on scheduled lasix w/ improvement in BP 136/77. Discussed benefit w/ better BP control given her underlying VIRA not treated and likely having some sx R sided HF as well (5) Chest pain: Plan: episode of CP reported 12/25 AM but not alerted to nursing per patient. Lasted about 10 seconds, self resolved. No associated worsened SOB/palpitations/radiation/etc EKG obtained, Sinus erica/no acute finding. Troponin added and was normal. 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 +BS on exam, passing lots of gas Anxiety/depression: Continue venlafaxine, support provided (7) B12 deficiency: Plan: Low 156, IM x 1 ordered for today continue supplementation at dc planned Plan DVT prophylaxis: Lovenox SQ while inpatient Scheduling PO lasix, complete course Doxy/prednisone for today. Plan for repeat 2step in AM to see about front elevator operator portable take and can give CM rx for Inogen/portability if needed. Admission and Anticipated Discharge Date Admission Date: December 22, 2023 Results & Data Results & Data Vital Signs (Past 12 Hours) Vital Signs Temp Pulse Pulse Resp BP Pulse Ox O2 Del Method 12/28/23 08:28 68 12/28/23 07:57 36.7 C 56 L 16 148/72 H 96 Nasal Cannula 12/28/23 07:25 53 L 14 94 Nasal Cannula O2 Flow Rate 12/28/23 08:28 12/28/23 07:57 2 12/28/23 07:25 1 PG Care Time/CCT Total # of Minutes Spent Total Time Spent with Patient: Total time spent is greater than 50% in coordination of care (as documented) at patient's floor/unit and/or counseling patient: Coding Diagnoses Acute bronchitis with chronic obstructive pulmonary disease (COPD) J44.0; J20.9 Sleep apnea G47.30 CVA (cerebral vascular accident) I63.9 Hypertension I10 Chest pain R07.9 Constipation K59.00 B12 deficiency E53.8
--- NOTE | 2023-12-28 09:37 | XRay Report ---
KUB CLINICAL HISTORY: f/u constipation COMPARISON STUDY: CT of the abdomen and pelvis December 17, 2023. KUB December 26, 2023. FINDINGS: Status post cholecystectomy. The amount of stool within the left colon has significantly de creased since prior exam. There is moderate residual stool within the colon and rectum. Colonic dilat ation is likely related to stool. There is no convincing radiographic evidence for a bowel obstructio n. IMPRESSION: Moderate amount of stool within the colon and rectum with significant interval decrease in the amount of stool within the left colon since prior KUB. ACT 112: Negative or not required by law. Electronically signed by: João Villatoro M.D. 12/28/2023 9:35 AM
[2023-12-28] MEDS: CYANOCOBALAMIN 1000 MCG/ML VIAL IM SCH (09:41)
--- NOTE | 2023-12-28 11:15 | Discharge Summary ---
Date of Service December 28, 2023 Admission HPI Per Admitting Provider Jayla is a 78-year-old female with a past medical history of COPD, fibromyalgia, chronic respiratory failure on 2 L of oxygen baseline recently admitted for dyspnea and discharged 11/30/2023 but who has had progressive worsening dyspnea since that time and presents today with dyspnea and increased hypoxia. Prior hospitalization was suspected due to COPD exacerbation, CTA did not show evidence of pneumonia or PE at that time, she was treated with azithromycin/PFTs, two-step on day of discharge show 2 L oxygen requirement, and she was discharged in stable condition. On presentation to the ER 12/21 she is hypoxic to 85% on 3 L and requiring oxygen above her normal baseline and is wheezing. She has no leukocytosis, chest x-ray shows no acute pneumonia or pulmonary edema. She is recommended for admission for recurrent COPD exacerbation. She was treated with albuterol and methylprednisolone in the ER. She is seen at the bedside with her daughter present. She reports she initially did well for a few days after returning home. She traveled by car about [address] this weekend. Endorses chronic right greater than left swelling in her ankles which has not changed recently, but which does remain present. She has not had a DVT/PE before. Her last few days and especially in the last 24 hours she feels her breathing is much more tight, she cannot catch her breath, and she has needed more oxygen than normal. She notes that the feelings of dyspnea and air hunger also flare her anxiety and this causes a loop of both fear and dyspnea. Currently she feels comfortable and is not short of breath on 3-4 L, she denies chest pain at any point, and has not had inspiratory pain. No lightheadedness, dizziness, syncope, presyncope. She does have a nonproductive cough and daughter notes she has had difficulty producing sputum but it sounds like there is "thick mucus ". She has not had fever, chills, sweats. She expresses fear that her COPD will progress and that her Anoro used to work well for her, but over the past months to years her breathing seems to have gradually declined. Medical History: Reviewed Medications: Reviewed Surgical History: Reviewed Family history: Reviewed Allergies: Reviewed Social History: Former tobacco abuse Code Status: Full code Admission Exam Per Admitting Provider General: A&Ox3. NAD. Cooperative. HEENT: Atraumatic, normocephalic. Pulm: No wheezing with normal respiration, very tight/restricted air movement on admission. With deep breathing and forced expiration she has a faint high- pitched wheeze at the end of expiration at the right upper quadrant otherwise clear symmetrical chest rise. No increased work of breathing. No respiratory distress. Cardiac: RRR, -mrg. Radial pulses intact and symmetrical. No JVD Abdominal: Nontender, nondistended, soft. BS present. Extremities: Right greater than left trace ankle edema Principal Diagnosis COPD exacerbation, volume overload 2nd to steroids Discharge Exam General: 78yo female sitting up in chair, appears improved, NAD, son at bedside HEENT: nasal bogginess, +frontal sinus tenderness RESOLVED Resp: normal respiratory effort, on 2L, lungs diminished, no further wheezing CV: RRR, no murmur, significant improvement in b/l LE edema (trace-1+ today), calves nontender GI: +BS, soft, less distension, nontender MSK/Neuro: nonfocal, follows commands, strength equal bilaterally chronic LE edema (decreased, wrinkling of skin), R>L at baseline, calves nontender Psych: AOx3, cooperative with exam Discharge Data Allergies Allergy/AdvReac Type Severity Reaction Status Date / Time adhesive Allergy Intermediate RASH Verified 12/16/23 11:32 ibuprofen Allergy Intermediate RASH Verified 12/16/23 11:32 Iodinated Contrast Media Allergy Intermediate HIVES, Verified 12/16/23 11:32 EYES SWELL SHUT latex Allergy Intermediate RASH Verified 12/16/23 11:32 naproxen Allergy Intermediate SWELLING, Verified 12/16/23 11:32 RASH, HIVES Consultations 12/22/23 12:30 ED Decision to Admit Stat Procedures Performed Chest X-Ray 12/22/23 11:05 XR chest 1V portable HISTORY: Dyspnea COMPARISON: Chest 12/16/2023. FINDINGS: No pneumothorax. No pleural effusions. The heart remains mildly enlarged. Mild interstitial thickening persists. This is likely chronic. No new focal lung consolidations to suggest a pneumonia. No evidence for pulmonary edema. No acute fractures. IMPRESSION: No significant change compared to the prior study. No acute process. ACT 112: Negative or not required by law. Electronically signed by: Nate Singleton M.D. 12/22/2023 12:12 PM Chest X-Ray 12/24/23 12:58 XR chest 2V PA/lateral HISTORY: Dyspnea. COMPARISON: Chest 12/22/2023. FINDINGS: No pneumothorax. No pleural effusions. The heart remains mildly enlarged. There is a calcified thoracic aorta again noted. Left basilar linear densities persist and favor subsegmental atelectasis. No new focal lung consolidations to suggest a pneumonia. No evidence for pulmonary edema. Mild chronic interstitial thickening persists. No acute fractures. Mild biapical pleural thickening remains unchanged. IMPRESSION: No significant change compared to the prior study. No acute process. ACT 112: Negative or not required by law. Electronically signed by: Nate Singleton M.D. 12/24/2023 2:33 PM KUB X-Ray 12/26/23 09:16 KUB CLINICAL HISTORY: Abdominal pain. Constipation. COMPARISON STUDY: CT of the abdomen and pelvis December 17, 2023. Abdominal series December 16, 2023. FINDINGS: There is a very large amount of stool stool within the left colon. There is a moderate amount of stool within the remainder of the colon. There is a moderate to large amount of stool within the rectum. There is no evidence for a bowel obstruction. IMPRESSION: 1. Large amount of stool within the colon and rectum, particularly within the left colon. 2. No evidence for a bowel obstruction. ACT 112: Negative or not required by law. Electronically signed by: João Villatoro M.D. 12/26/2023 10:27 AM Chest X-Ray 12/26/23 09:24 XR chest 2V PA/lateral CLINICAL HISTORY: f/u COMPARISON STUDY: Chest CT November 24, 2023. Chest radiograph December 24, 2023. FINDINGS: Lung volumes are normal. Lungs are clear. There is no pneumothorax or pleural effusion. Cardiomegaly is unchanged. Mediastinal contours are normal. There is no evidence for pulmonary edema. IMPRESSION: No acute cardiopulmonary findings. No change in appearance of the chest. ACT 112: Negative or not required by law. Electronically signed by: João Villatoro M.D. 12/26/2023 10:22 AM KUB X-Ray 12/28/23 08:46 KUB CLINICAL HISTORY: f/u constipation COMPARISON STUDY: CT of the abdomen and pelvis December 17, 2023. KUB December 26, 2023. FINDINGS: Status post cholecystectomy. The amount of stool within the left colon has significantly decreased since prior exam. There is moderate residual stool within the colon and rectum. Colonic dilatation is likely related to stool. There is no convincing radiographic evidence for a bowel obstruction. IMPRESSION: Moderate amount of stool within the colon and rectum with significant interval decrease in the amount of stool within the left colon since prior KUB. ACT 112: Negative or not required by law. Electronically signed by: João Villatoro M.D. 12/28/2023 9:35 AM Hospital Course (1) Acute bronchitis with chronic obstructive pulmonary disease (COPD): Acute on chronic hypoxic respiratory failure, suspect 2/2 acute on chronic COPD exacerbation. Prior to admission in Nov, she was only on 2L at bedtime. Two step at discharge recommend 2L with activity. Patient tried that but last few days, having to wear oxygen more consistently. Biofire negative Ddimer elevation (noting 610, age adjusted normal, lower than prior ddimer), low risk for PE, defer CTA and treating as COPD exacerbation as below --> Ddimer on repeat NORMAL BNP without significant elevation, however suspect some aspect of fluid retention most recently from IV steroids as well as underlying R sided symptoms from untreated sleep apnea IV methylprednisolone provided multiple days, transitioned to prednisone 40mg PO daily to complete course,done while inaptient Doxy PO BID x 5 days completed Sputum w/ light normal shell Pulmonary toilet, nebs, hypertonic saline and allergy medication provided for sinus congestion with improvement Was placed on lasix 40mg PO daily for 12/23-12/24 with improvement in LE edema and additional 40mg IV provided on 12/25 prior to changing to scheduled 40mg PO daily (was only to take "prn" at home but was not taking much) Discussed VIRA, trial nasal pillows unsuccessful, continue 2L HS Patient feeling well,moving her bowels and breathing improved without acute findings on lung exam. CXR remained clear on subsequent examinations and patient felt stable for discharge Discussed w/ patient and to continue lasix 40mg PO daily along with hypertonic saline as needed/mucinex for congestion. s/p diuresis, patient was able to be titrated to ROOM AIR at rest, 2L w/ exertion per repeat 2step prior to dc. CM provided rx for portable tank, delivered to room. continued daily lasix at dc Resume home Azithro M-W-F per pulm as patient reports she had been taking Discussed and patient reported son got air purifier for at home and to limit environmental exposures. Consideration for trelegy vs alternative maintenance in f/u with pulmonology. Navigator arranging f/u appt on Saturday in upcoming weeks (2) Sleep apnea: CPAP ordered HS on admission, HOWEVER PATIENT HAS NOT USED IN ~4 yrs, claustrophobic. Attempted nasal pillows overnight 12/24 and was UNABLE to tolerate 2L HS, lasix as above to be continued 40mg PO daily (3) CVA (cerebral vascular accident): History of CVA, no residual deficits reported Continued on plavix, atorvastatin No focal deficits on exam, alert/oriented (4) Hypertension: BP stable Continued on atenolol, losartan daily improvement overall w/ scheduled lasix and as discussed w/ patient better BP control given her underlying COPD and likely R sided HF. Prior ECHO w/ normal EF and no significant valvular heart disease in November (5) Chest pain: episode of CP reported 12/25 AM but not alerted to nursing per patient. Lasted about 10 seconds, self resolved. No associated worsened SOB/palpitatio ns/radiation/etc EKG obtained, Sinus erica/no acute finding. Troponin added and was normal. 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, most recently seen by Todd [facility] KUB w/o obstruction, notable stool in colon On lubiprostone, +kartik miralax TID +BM 12/25, 12/26 KUB w/ improvement, abdomen softer, passing lots of gas Continue home meds at nd Anxiety/depression: Continued venlafaxine, support provided (7) B12 deficiency: Low 156, IM x 1 ordered for today continued supplementation at nd planned Plan DVT prophylaxis: Lovenox SQ while inpatient Patient completed course of Doxy/steroids while inpatient, no further wheezing on exam and titrated to room air at rest with lasix scheduled and to monitor her weights at discharge and to take additinoal dose for weight gain 2-3lb in 24 hours or 5lb in a week. Weight 192lb prior to discharge and suspect "dry weight" 190-192lb to be used moving forward Total Time Total Time Spent Total Time Spent (In Minutes): 45 Discharge Plan Discharge Items Patient Disposition: Home - Self-Care Reason For Visit: AOC COPD Discharge Diagnosis: COPD exacerbation, volume overload Condition on Discharge: Fair Goals: You have been hospitalized for an acute medical problem. During your stay at [facility], we have made an effort to correct the problem that brought you to the hospital while keeping you as comfortable as possible. Medications were used to bring your condition under control and your discharge instructions will include directions for any medications you should take after leaving the hospital. Please make sure you see your Primary Care Provider as part of your follow up plan. Activity: As commented below Non-emergency contact: Primary Care Provider and [employer] Call non-emergency contact if: you have any medication questions, your symptoms worsen, your pain is not controlled and you have a fever Follow-up/Referrals: Lala Baum MD [Primary Care Provider] - 01/03/24 4:00 pm Julienne Inman [facility], [facility] [Physician] - Diet: Heart Healthy and Low Sodium (2gm) Fluids: 1800ml (7 cups) Addtl Attending Provider Instructions: You have been hospitalized for shortness of breath and treated for COPD exacerbation. You completed a course of steroids and doxycycline while in the hospital. Imaging was negative for pneumonia, sputum cultures was negative for infectious bacteria and report was normal shell. We added hypertonic saline to help with mucus and congestion and are continuing these nebulizers at discharge. Please continue mucinex and allergy medications as Flonase nasal spray and zyrtec daily as well as air purified as discussed. We have talked about monitoring your weights as they may have been up from excessive steroids and fluid retention. Your BNP (level that tells us about heart failure) was NOT elevated however I suspect this was falsely low due to underlying diastolic heart failure due to your underlying sleep apnea. We have given you IV lasix (water pill) and oral while in the hospital and your swelling has been much improved and your renal function has remained stable. Your weight at discharge is 192lb and you should monitor your weights daily at home and if you have increased weight gain of 2-3lb in 24 hours or 5lb in a week you may need additional as needed dosing. You should stick with a low salt diet and not drink excessive fluids as this can increase fluid retention. Your B12 was low and we gave you a shot in the hospital and are continuing oral supplementation with 1000mcg daily. We repeated your 2step and at discharge and with the lasix we used you have been titrated back to room air at rest and should continue 2 liters with activity and while sleeping. We have provided new prescription to case management to fax to [facility] for portable tank to be sure you have the supplies you need. Please continue to monitor your oxygen levels at home to keep above 90% and notify provider if drops or return to ER if developing symptoms. Case management will call on Saturday to schedule your appointment with pulmonology however if you do not hear from them please call in the next couple of days for appointment for follow up to consider changes in your inhalers if needed. Please follow up with primary care in the next 7-10 days to monitor your status after discharge. Please return to the emergency department with any increased shortness of breath, low oxygen levels, chest pain, fever/chills, or for any other symptoms concerning for you. It has been a pleasure being a part of the medical team providing for you while you have been in the hospital. Take care! Pending Studies at Discharge: No Stand-Alone Forms: My [facility] Vitals [email or web address]), Smoking Cessation Medications and DC Order Prescriptions: New sodium chloride 7 % Solution For Nebulization 4 ml NEB BIDR Qty: 120 0RF cyanocobalamin (vitamin B-12) 1,000 mcg capsule 1,000 mcg PO DAILY Qty: 30 0RF Continued magnesium oxide 500 mg tablet 500 mg PO BID Qty: 180 3RF clopidogrel 75 mg tablet 75 mg PO QAM Qty: 90 3RF potassium chloride 10 mEq tablet extended release 10 meq PO QAM Qty: 90 1RF losartan 50 mg tablet 50 mg PO QAM Qty: 90 1RF pantoprazole 40 mg tablet,delayed release (DR/EC) 40 mg PO BID Qty: 180 3RF dicyclomine 10 mg capsule 10 mg PO QID PRN (Reason: ABD PAIN) Qty: 360 3RF atorvastatin 40 mg tablet 40 mg PO .COMPLEX Qty: 48 3RF Rx Instructions: 40 mg orally every other day; atenolol 25 mg tablet 25 mg PO QAM Qty: 90 1RF albuterol sulfate 90 mcg/actuation HFA aerosol inhaler 2 puff INHALATION Q4 PRN (Reason: Wheezing or shortness of breath) Qty: 8.5 3RF ipratropium-albuterol 0.5 mg-3 mg(2.5 mg base)/3 mL solution for nebulization 3 ml INH Q4H PRN (Reason: cough,sob,wheezing) Qty: 360 6RF Anoro Ellipta 62.5-25 mcg/actuation blister with device 1 inh INHALATION QAM Qty: 3 4RF budesonide [Pulmicort] 0.5 mg/2 mL suspension for nebulization 0.5 mg INH BID Qty: 360 4RF ZINC See Rx Instructions .ROUTE .COMPLEX Patient Comments: PT REPORTS THAT SHE TAKES A ZINC DAILY. UNKNOWN STRENGTH Rx Instructions: as directed ondansetron HCl 4 mg tablet 4 mg PO Q6H PRN (Reason: nausea and vomiting) Qty: 10 0RF cetirizine [Zyrtec] 10 mg tablet 10 mg PO DAILY PRN (Reason: allergy symptoms) Qty: 30 5RF cholecalciferol (vitamin D3) [Vitamin D3] 2,000 unit Capsule 2,000 unit PO QAM Coricidin HBP Chest Ren-Cough 10-200 mg Capsule 1 tab-cap PO .Q4-6H PRN (Reason: Cough) meclizine 25 mg tablet 12.5 mg PO Q6 PRN (Reason: vertigo/dizziness) Qty: 20 0RF nystatin 100,000 unit/gram powder 1 applic TOPICAL TID PRN (Reason: Other) polyethylene glycol 3350 [Miralax] 17 gram powder in packet 17 g PO DAILY PRN (Reason: Constipation) lubiprostone 24 mcg capsule 24 mcg PO BID venlafaxine 37.5 mg Tablet 37.5 mg PO BID Qty: 60 0RF Changed furosemide 40 mg tablet 40 mg PO DAILY Qty: 90 3RF Discharge Orders: Discharge Order (Routine); Ordered 12/28/23 Ordered By: Jennifer Carney Admission Data Admit Date/Time: 12/22/23 12:43 Attending Provider: Holden Recinos Admit Provider: Anand Dunbar Primary Care Provider: Lala Baum Other Providers: Anand Dunbar Other Interventions: Discharge Summary Assessment (RN) Last Done: 12/28/23 13:14 Supervising Physician Co-Signing Physician Notes The patient was not seen by me. The chart was reviewed. Case discussed with CLARK Espinoza. Agree with assessment and plan. The patient is medically stable for discharge home today, December 27 Coding Level of Care Code 90500 INP/OBS DISCH >30 MIN Diagnoses Acute bronchitis with chronic obstructive pulmonary disease (COPD) J44.0; J20.9 Sleep apnea G47.30 CVA (cerebral vascular accident) I63.9 Hypertension I10 Chest pain R07.9 Constipation K59.00 B12 deficiency E53.8
== END 2023-12-28 13:43 | disposition home or self-care (01) | DRG 190 ==
LOC: ED 10:50 → SUATTDRO 12:43 → 3W 12:43

== ENCOUNTER 2025-10-03 11:01 | Inpatient (IN) ==
[2025-10-03] MEDS: ALBUT/IPRATROP 3MG/0.5MG NEB 3 ML VIAL INH STA (11:32)
[2025-10-03 11:38] LABS: Hematocrit (blood only) 44.9 % (37.0-47.0); Hemoglobin 13.9 g/dL (12.0-16.0); Immature Granulocytes # (auto) 0.02 K/uL (0.01-0.20); Immature Granulocytes % (auto) 0.4 %; Mean Corpuscular Hemoglobin 29.6 pg (25.0-34.0); Mean Corpuscular Volume 95.5 fL (80.0-100.0); Platelet Count 166 K/uL (130-400); RDW Standard Deviation 48.6 fL (36.4-46.3); Red Blood Count 4.70 M/uL (4.20-5.40); White Blood Count 5.52 K/ul (4.8-10.8)
--- NOTE | 2025-10-03 11:57 | Emergency Department Note ---
History of Present Illness General Chief complaint: Flu Like Symptoms Stated complaint: COUGH, HEADACHE, BODY ACHE, TROUBLE BREATHING Time Seen by Provider: 10/03/25 11:11 Source: patient and family Mode of arrival: ambulatory Limitations: no limitations History of Present Illness Patient is an 80-year-old female with history of COPD and supplemental oxygen as needed who presents with headache, cough, shortness of breath, nausea, vomiting. She says her headache started about a week prior. Became worse with the cough which started yesterday. She is having posttussive emesis. Cough productive of yellow sputum. She has a history of similar headaches in the past. Also endorsing some spots in her vision related to her headache. No visual loss, speech change, facial droop, numbness or weakness to her extremities. She does use an inhaler and a nebulizer at home for her COPD. with similar symptoms as well. No recent antibiotics, steroids, travel. Home Medications Medication Instructions Recorded Confirmed Type cholecalciferol (vitamin D3) 50 2,000 unit PO QAM 06/09/19 10/03/25 History mcg (2,000 unit) capsule (Vitamin D3) polyethylene glycol 3350 17 gram 17 g PO Q OTHER DAY PRN 02/20/23 10/03/25 History oral powder packet (Miralax) Constipation nystatin 100,000 unit/gram topical 1 applic topical TID PRN Other #60 02/27/24 10/03/25 Rx powder grams guaifenesin 600 mg tablet, 600 mg PO BID PRN congestion #60 04/01/24 10/03/25 Rx extended release 12 hr (Mucinex) tabs zinc gluconate 50 mg tablet 50 mg PO DAILY 04/25/24 10/03/25 History cyanocobalamin (vitamin B-12) 1,000 mcg PO DAILY #90 caps 06/22/24 10/03/25 Rx 1,000 mcg capsule losartan 100 mg tablet 100 mg PO QAM #90 tabs 10/19/24 10/03/25 Rx atenolol 25 mg tablet 25 mg PO QAM #90 tabs 02/03/25 10/03/25 Rx clopidogrel 75 mg tablet 75 mg PO QAM #90 tabs 03/04/25 10/03/25 Rx furosemide 40 mg tablet 40 mg PO PRN swelling or fluid 03/18/25 10/03/25 History accumulation meclizine 25 mg tablet 12.5 mg (1/2 x 25 mg) PO Q6 PRN 03/19/25 10/03/25 Rx vertigo/dizziness #20 tabs promethazine 25 mg tablet 25 mg PO Q6H PRN nausea and 03/31/25 10/03/25 Rx vomiting #14 tabs lubiprostone 24 mcg capsule 24 mcg PO BID #180 caps 04/16/25 10/03/25 Rx (Amitiza) potassium chloride 10 mEq 10 meq PO QAM #90 tabs 06/04/25 10/03/25 Rx tablet,extended release atorvastatin 40 mg tablet 40 mg PO Q OTHER DAY dyslipidemia 06/18/25 10/03/25 Rx #48 tabs cetirizine 10 mg tablet 10 mg PO DAILY PRN allergy 07/01/25 10/03/25 Rx symptoms #90 tabs albuterol sulfate 90 mcg/actuation 2 inh inhalation QID PRN Wheezing 07/22/25 10/03/25 Rx aerosol inhaler #8.5 grams budesonide 0.5 mg/2 mL suspension 0.5 mg (2 mL) inhalation BID #360 07/22/25 10/03/25 Rx for nebulization (Pulmicort) mL formoterol fumarate 20 mcg/2 mL 2 ml inhalation Q12H #120 mL 07/22/25 10/03/25 Rx solution for nebulization (Perforomist) ipratropium 0.5 mg-albuterol 3 mg 3 ml inhalation Q4H PRN 07/22/25 10/03/25 Rx (2.5 mg base)/3 mL nebulization cough,sob,wheezing #360 mL soln roflumilast 500 mcg tablet 500 mcg PO DAILY #30 tabs 07/22/25 10/03/25 Rx umeclidinium 62.5 mcg/actuation 1 inh inhalation QAM #30 ea 07/22/25 10/03/25 Rx blister powder for inhalation (Incruse Ellipta) azelastine 137 mcg (0.1 %) nasal 2 spray intranasal BID PRN nasal 07/28/25 10/03/25 Rx spray congestion #90 mL fluticasone propionate 50 2 spray intranasal DAILY #48 grams 07/28/25 10/03/25 Rx mcg/actuation nasal spray,suspension magnesium oxide 500 mg PO BID #180 tabs 08/02/25 10/03/25 Rx clotrimazole 10 mg mauricio 10 mg mucous membrane 5XD #140 tabs 08/28/25 10/03/25 Rx metoclopramide HCl 5 mg tablet 5 mg PO BID PRN nausea and 08/29/25 10/03/25 Rx (Reglan) vomiting #10 tabs pantoprazole 40 mg tablet,delayed 40 mg PO BID #180 tabs 09/14/25 10/03/25 Rx release Allergies Allergy/AdvReac Type Severity Reaction Status Date / Time adhesive Allergy Intermediate RASH Verified 10/03/25 15:14 ibuprofen Allergy Intermediate RASH Verified 10/03/25 15:14 Iodinated Contrast Media Allergy Intermediate HIVES, Verified 10/03/25 15:14 EYES SWELL SHUT latex Allergy Intermediate Hives Verified 10/03/25 15:14 naproxen Allergy Intermediate SWELLING, Verified 10/03/25 15:14 RASH, HIVES ondansetron [From Zofran] AdvReac Mild Nausea Verified 10/03/25 15:15 Past Med/Surg History Problem List (Updated 10/05/25 @ 13:54 by Johann Ward MD) Hypertensive urgency (Acute) COPD exacerbation (Acute) Hypoxia (Acute) Influenza A (Acute) Conjunctivitis Recurrent pneumonia Chronic rhinitis Hydronephrosis of right kidney Right nephrolithiasis Vasomotor rhinitis Exertional shortness of breath Ex-smoker B12 deficiency Hypoxia (Acute) Vocal fold atrophy Celiac artery aneurysm Constipation Obstruction of left ureteropelvic junction (UPJ) due to stone Regurgitation of food Mixed stress and urge urinary incontinence Recent urinary tract infection Chronic respiratory failure with hypoxia (Acute) 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 Vertigo Anxiety and depression Sleep apnea O2 2L HS Allergic rhinitis Arthritis Obesity Fibromyalgia Chronic obstructive pulmonary disease nebulizer/inhalers daily and prn///2L n/c at HS/PRN Dyslipidemia Hypertension Medical History Elevated troponin Acute on chronic hypoxic respiratory failure Constipation Vocal cord nodules Obesity Fibromyalgia Vertigo Celiac artery aneurysm Hyperlipidemia HTN (hypertension) Anxiety and depression COPD (chronic obstructive pulmonary disease) History of kidney stones History of TIA (transient ischemic attack) (2019) History of intestinal obstruction History of diverticulitis On anticoagulant therapy On home oxygen therapy History of COVID-19 Dysconjugate gaze Hypomagnesemia Osteoarthritis Multiple pulmonary nodules Obstructive sleep apnea of adult Urge incontinence of urine GERD (gastroesophageal reflux disease) IBS (irritable bowel syndrome) Surgical History History of cystoscopy (~07/24/19) History of bunionectomy History of surgical removal of right nipple History of cataract surgery History of ureter stent History of right breast biopsy History of dilatation and curettage History of removal of cyst History of colonoscopy History of cholecystectomy Status post biopsy of thyroid gland History of tooth extraction H/O esophagogastroduodenoscopy History of bilateral breast reduction surgery History of tonsillectomy and adenoidectomy History of total hysterectomy Family History Brother Family history of diabetes mellitus Other No family history of adverse response to anesthesia Denies family history of Diabetes Crohn's disease Colorectal cancer Ulcerative colitis Stroke Social History Smoking Status: Former smoker Tobacco Type: Cigarettes Age Started Using Tobacco: 8; Age Quit Using Tobacco: 49; packs per day: 1.5; Second Hand Exposure: No; Do You Dip or Chew Tobacco: No; Hx Alcohol Use: No Hx Substance Use: No Preferred Language: Croatian Communication Ability: Effective Visual Impairment: No Limitations Coin Purse Framer Required: No Beliefs That Will Affect Care: None marital status: Current Living Situation: Spouse and Family Current Living Situation Comment: Patient lives with her . Her daughter and 1 grandson live there current occupational status: retired How many Children do You have: 3 Feels Safe at Home: Yes Diet: regular Dental Care, Regularly: No Physical Activity Frequency: Does not Exercise Seatbelt Use: sometimes Sunscreen Use: Yes Assistive Devices: BiPap, Cane, CPAP and Walker Review of Systems Review of systems negative outside of positive findings mentioned in HPI. Physical Exam Vital Signs Vital Signs - 24 hr 10/03/25 11:04 10/03/25 11:24 10/03/25 11:30 Temperature 37.0 C 36.9 C Temperature Source Oral Oral Pulse Rate 79 108 H Pulse Rate [Apical] 85 Respiratory Rate 20 21 Respiratory Effort / Characteristics Short of Breath Respiratory Pattern Tachypnea Blood Pressure 195/84 H Blood Pressure [Right Arm] 228/118 H Blood Pressure Mean 121 Blood Pressure Mean [Right Arm] 154 Blood Pressure Position [Right Arm] Semi-fowlers Pulse Oximetry 95 98 Oxygen Delivery Method Room Air Nasal Cannula Oxygen Flow Rate 2 Sepsis Recent Fever Within 48 Hours No Sepsis New/Unexplained Change in Mental Status N/A Sepsis Action Taken by Nursing No Action Required 10/03/25 11:30 Temperature Temperature Source Pulse Rate Pulse Rate [Apical] Respiratory Rate Respiratory Effort / Characteristics Respiratory Pattern Blood Pressure Blood Pressure [Right Arm] Blood Pressure Mean Blood Pressure Mean [Right Arm] Blood Pressure Position [Right Arm] Pulse Oximetry 97 Oxygen Delivery Method Nasal Cannula Oxygen Flow Rate 2 Sepsis Recent Fever Within 48 Hours Sepsis New/Unexplained Change in Mental Status Sepsis Action Taken by Nursing See below Constitutional WD/WN, vitals as above Eyes PERRL, conjunctivae normal, anicteric sclerae ENMT external ear and nose normal, oropharynx normal Respiratory + labored breathing and + cough; does not use accessory muscles Auscultation: + wheezes Cardiovascular Rate/Rhythm: regular rate and regular rhythm Heart Sounds: normal S1 and normal S2 Vessels: no JVD Extremities: no calf tenderness and no edema Gastrointestinal (Abdomen) normal bowel sounds, soft, nontender, no hepatosplenomegaly Neurologic CN's II-XI intact bilaterally and awake; no focal motor deficit Course Administered Medications Acetaminophen (Acetaminophen 325 Mg Tab) 650 mg PO Q4H PRN PRN Reason: Pain or Fever Stop: 11/02/25 17:59 Last Admin: 10/04/25 20:30 Dose: 650 mg Documented By: Admin: 10/04/25 10:53 Dose: 650 mg Documented By: Admin: 10/03/25 20:56 Dose: 650 mg Documented By: NICK Atenolol (Atenolol 25 Mg Tablet) 25 mg PO QAM [facility] Stop: 11/03/25 08:59 Last Admin: 10/05/25 09:25 Dose: 25 mg Documented By: conner Admin: 10/04/25 08:57 Dose: 25 mg Documented By: Atorvastatin Calcium (Atorvastatin 40 Mg Tab) 40 mg PO Q2D [facility] Stop: 11/03/25 08:59 Last Admin: 10/04/25 08:57 Dose: 40 mg Documented By: Benzonatate (Benzonatate 100 Mg Capsule) 100 mg PO TID [facility] Stop: 11/03/25 20:59 Last Admin: 10/05/25 09:25 Dose: 100 mg Documented By: conner Admin: 10/04/25 20:30 Dose: 100 mg Documented By: OLIVERIO Budesonide (Budesonide 0.5 Mg/2 Ml Vial (Pulmicort)) 0.5 mg INH BIDR [facility] Stop: 11/02/25 18:59 Last Admin: 10/05/25 08:16 Dose: 0.5 mg Documented By: Admin: 10/04/25 20:00 Dose: 0.5 mg Documented By: Admin: 10/04/25 07:06 Dose: 0.5 mg Documented By: Admin: 10/03/25 20:27 Dose: 0.5 mg Documented By: DANITZA Clopidogrel Bisulfate (Clopidogrel Bisulfate 75 Mg Tab) 75 mg PO QAM [facility] Stop: 11/03/25 08:59 Last Admin: 10/05/25 09:25 Dose: 75 mg Documented By: conner Admin: 10/04/25 08:58 Dose: 75 mg Documented By: Clotrimazole (Clotrimazole 10 Mg Mauricio) 10 mg BUCCAL [id number] [facility] Stop: 11/02/25 18:59 Last Admin: 10/05/25 12:26 Dose: 10 mg Documented By: conner Admin: 10/05/25 09:25 Dose: 10 mg Documented By: conner Admin: 10/04/25 21:15 Dose: 10 mg Documented By: Admin: 10/04/25 17:46 Dose: 10 mg Documented By: conner Admin: 10/04/25 14:32 Dose: 10 mg Documented By: Admin: 10/04/25 10:53 Dose: 10 mg Documented By: Admin: 10/04/25 08:57 Dose: 10 mg Documented By: Admin: 10/03/25 20:00 Dose: 10 mg Documented By: OMERO Cyanocobalamin (Cyanocobalamin (B-12) 500 Mcg Tablet) 1,000 mcg PO DAILY [facility] Stop: 11/03/25 08:59 Last Admin: 10/05/25 09:25 Dose: 1,000 mcg Documented By: conner Admin: 10/04/25 08:59 Dose: 1,000 mcg Documented By: Enoxaparin Sodium (Enoxaparin Inj 40 Mg/0.4 Ml Syr) 40 mg SQ QAM [facility] Stop: 11/03/25 08:59 Last Admin: 10/05/25 09:26 Dose: 40 mg Documented By: conner Admin: 10/04/25 08:59 Dose: 40 mg Documented By: Fluticasone Propionate (Fluticasone Propionate Na Spr 16 Gm Btl) 2 sprays NA DAILY [facility] Stop: 11/03/25 08:59 Last Admin: 10/05/25 10:06 Dose: 2 sprays Documented By: conner Admin: 10/04/25 08:59 Dose: 2 sprays Documented By: Formoterol Fumarate (Formoterol 20 Mcg/2 Ml Vial) 20 mcg INH BIDR [facility] Stop: 11/02/25 18:59 Last Admin: 10/05/25 08:16 Dose: 20 mcg Documented By: Admin: 10/04/25 20:00 Dose: 20 mcg Documented By: Admin: 10/04/25 07:06 Dose: 20 mcg Documented By: Admin: 10/03/25 20:27 Dose: 20 mcg Documented By: DANITZA Prochlorperazine 5 mg/ Syringe 5 mls @ 5 mls/min IV Q6H PRN PRN Reason: Nausea And Vomiting Stop: 11/04/25 12:04 Last Admin: 10/05/25 12:26 Dose: 5 mls/min Documented By: conner Losartan Potassium (Losartan Potassium 50 Mg Tab) 100 mg PO QAM [facility] Stop: 11/03/25 08:59 Last Admin: 10/05/25 09:23 Dose: 100 mg Documented By: conner Admin: 10/04/25 09:00 Dose: 100 mg Documented By: Lubiprostone (Lubiprostone 8 Mcg Cap) 24 mcg PO BID [facility] Stop: 11/02/25 20:59 Last Admin: 10/05/25 09:25 Dose: 24 mcg Documented By: conner Admin: 10/04/25 20:30 Dose: 24 mcg Documented By: Admin: 10/04/25 09:01 Dose: 24 mcg Documented By: Admin: 10/03/25 20:59 Dose: Not Given Documented By: NICK Magnesium Oxide (Magnesium Oxide 400 Mg Tab) 400 mg PO BID [facility] Stop: 11/02/25 20:59 Last Admin: 10/05/25 09:25 Dose: 400 mg Documented By: conner Admin: 10/04/25 20:30 Dose: 400 mg Documented By: Admin: 10/04/25 09:01 Dose: 400 mg Documented By: Admin: 10/03/25 20:57 Dose: 400 mg Documented By: NICK Melatonin (Melatonin 3 Mg Tab) 3 mg PO HS PRN PRN Reason: Sleep Stop: 11/02/25 17:59 Last Admin: 10/04/25 20:30 Dose: 3 mg Documented By: OLIVERIO Oseltamivir Phosphate (Oseltamivir Phosphate 75 Mg Cap) 75 mg PO BID [facility] Stop: 10/08/25 20:59 Last Admin: 10/05/25 09:25 Dose: 75 mg Documented By: conner Admin: 10/04/25 20:30 Dose: 75 mg Documented By: Admin: 10/04/25 09:02 Dose: 75 mg Documented By: Admin: 10/03/25 20:57 Dose: 75 mg Documented By: NICK Pantoprazole Sodium (Pantoprazole 40 Mg Tab) 40 mg PO BID ELIE[facility]ER Stop: 11/02/25 20:59 Last Admin: 10/05/25 09:25 Dose: 40 mg Documented By: conner Admin: 10/04/25 20:30 Dose: 40 mg Documented By: Admin: 10/04/25 09:02 Dose: 40 mg Documented By: Admin: 10/03/25 20:57 Dose: 40 mg Documented By: NICK Potassium Chloride (Potassium Chloride 10 Meq Tabcr) 10 meq PO QAM [facility] Stop: 11/03/25 08:59 Last Admin: 10/05/25 09:23 Dose: 10 meq Documented By: conner Admin: 10/04/25 09:02 Dose: 10 meq Documented By: Roflumilast (Roflumilast 500 Mcg Tab) 500 mcg PO DAILY [facility] Stop: 11/03/25 08:59 Last Admin: 10/05/25 09:25 Dose: 500 mcg Documented By: conner Admin: 10/04/25 09:02 Dose: 500 mcg Documented By: Umeclidinium Mccune (Umeclidinium Mccune 62.5mcg/Blister 7 Puffs/Inhaler) 1 puffs INH QAM [facility] Stop: 11/03/25 08:59 Last Admin: 10/05/25 10:05 Dose: 1 puffs Documented By: conner Admin: 10/04/25 09:02 Dose: 1 puffs Documented By: Discontinued Medications Albuterol (Albut/Ipratrop 3mg/0.5mg Neb 3 Ml Vial) 3 ml INH NOW STA Stop: 10/03/25 11:28 Last Admin: 10/03/25 11:32 Dose: 3 ml Documented By: NICK Prochlorperazine 10 mg/ (Syringe) 10 mls @ 5 mls/min IV ONE ONE Stop: 10/03/25 11:28 Last Admin: 10/03/25 12:03 Dose: 5 mls/min Documented By: NICK Acetaminophen (Ofirmev) 1,000 mg in 100 mls @ 400 mls/hr IV NOW STA Stop: 10/03/25 12:38 Last Infusion: 10/03/25 12:56 Dose: Infused Documented By: Admin: 10/03/25 12:40 Dose: 400 mls/hr Documented By: NICK Prochlorperazine 5 mg/ Syringe 5 mls @ 5 mls/min IV ONE ONE Stop: 10/05/25 01:01 Last Admin: 10/05/25 02:04 Dose: 5 mls/min Documented By: OLIVERIO Methylprednisolone (Methylprednisolone 125 Mg/2 Ml Vial) 125 mg IV NOW STA Stop: 10/03/25 11:28 Last Admin: 10/03/25 11:32 Dose: 125 mg Documented By: NICK Oseltamivir Phosphate (Oseltamivir Phosphate 6 Mg/Ml Susp) 75 mg PO NOW STA Stop: 10/03/25 12:22 Last Admin: 10/03/25 12:57 Dose: 75 mg Documented By: NICK Medical Decision Making Differential Diagnosis DDx includes but not limited to: Viral URI, COPD exacerbation, pneumonia, ACS, PE, CHF, hypertensive urgency, tension headache, migraine, intracranial hemorrhage Medical Records Attestation: I reviewed the patient's medical records. Home Medications Current Medication List: was personally reviewed by me Laboratory Data Attestation: I reviewed the patient's lab results. 10/05/25 05:55 10/05/25 05:55 Lab Results 10/03/25 10/03/25 Range/Units 11:22 11:26 WBC 5.52 (4.8-10.8) K/ul RBC 4.70 (4.20-5.40) M/uL Hgb 13.9 (12.0-16.0) g/dL Hct 44.9 (37.0-47.0) % MCV 95.5 (80.0-100.0) fL MCH 29.6 (25.0-34.0) pg MCHC 31.0 L (32.0-36.0) g/dL RDW Std Deviation 48.6 H (36.4-46.3) fL RDW Coeff of Enoc 13.7 (11.5-14.5) % Plt Count 166 (130-400) K/uL MPV 8.5 L (9.4-12.4) fL Immature Gran % (Auto) 0.4 % Neut % (Auto) 66.8 % Lymph % (Auto) 13.8 % [place] % (Auto) 16.7 % Eos % (Auto) 1.6 % Baso % (Auto) 0.7 % Neut # (Auto) 3.69 (1.40-6.50) K/uL Lymph # (Auto) 0.76 L (1.20-3.40) K/uL [place] # (Auto) 0.92 H (0.11-0.59) K/uL Eos # (Auto) 0.09 (0.00-0.50) K/uL Baso # (Auto) 0.04 (0.00-0.20) K/uL Immature Gran # (Auto) 0.02 (0.01-0.20) K/uL Sodium 140 (136-145) mmol/L Potassium 3.9 (3.5-5.1) mmol/L Chloride 106 (98-107) mmol/L Carbon Dioxide 28 (21-32) mmol/L Anion Gap 6 (3-11) BUN 14 (6-23) mg/dl Creatinine 0.62 (0.6-1.2) mg/dl Est Cr Clr Drug Dosing 67.8 ml/min eGFR 88.86 BUN/Creatinine Ratio 22.6 H (10-20) Glucose 108 H (70-99(Fasting)) mg/dl Calcium 9.6 (8.6-10.3) mg/dl Total Bilirubin 0.4 (0.2-1.0) mg/dl AST 17 (13-39) U/L ALT 15 (7-52) U/L Alkaline Phosphatase 129 H (34-104) U/L Troponin I High Sens 8.0 (0-14) pg/ml B-Natriuretic Peptide 91 (0-100) pg/ml Total Protein 7.0 (6.0-8.3) gm/dl Albumin 3.8 (3.4-5.0) gm/dl Globulin 3.2 (2.5-4.0) gm/dl Albumin/Globulin Ratio 1.2 (0.9-2) SARS-CoV-2 (PCR) NEGATIVE (Negative) Influenza Type A (PCR) Positive A (Neg) Influenza Type B (PCR) Negative (Neg) RSV (RT-PCR) Negative (Neg) Imaging Data Attestation: I personally reviewed and interpreted this imaging study as follows: My Impression: No acute cardiopulmonary process noted on chest x-ray ECG Data Attestation: I personally reviewed and interpreted this ECG as follows: Indication: + SOB/dyspnea Rate (beats per minute): 85 Rhythm: + normal sinus ECG Intervals/blocks: + Normal QRS, + Normal QT and + Normal CA ECG Dustin: + Left axis deviation ECG ST segments: + Normal ST segments Comparison ECG Date: from (08/29/2025) Change: no significant change Blood Pressure Blood Pressure Findings: Elevated blood pressure Blood Pressure Disposition: elevated BP felt to be situational MDM Narrative Patient is an 80-year-old female with history of COPD and as needed home oxygen requirements who presents today for shortness of breath, wheezing, cough. She also reports 1 week of a headache. Awake and alert on arrival here in the ED. Hypertensive however this is likely secondary to pain reaction and ongoing emesis. IV was established. Patient was placed on 2 L nasal cannula to maintain adequate oxygen saturation. My neuroexam here today was nonconcerning for focal deficit however due to patient's persistent headache and elevated blood pressure CT of the head was ordered. CT of the head nonconcerning for acute intracranial abnormality. Patient was also given a DuoNeb treatment and IV steroids for management of presumed COPD exacerbation versus bronchospasm. On reevaluation after antiemetics, IV pain medication, DuoNeb and steroids patient's symptoms are not significantly improved as well as her blood pressure responded appropriately. At this point based on improvement in clinical picture and continued normal neuroexam I have low suspicion for emergent etiology of her headache. Lab work was reviewed. No leukocytosis or bandemia noted CMP nonconcerning. Cardiac enzymes within normal limits. Influenza A positive here today. Tamiflu was given. Chest x-ray without any acute opacity or concern for overlying bacterial pneumonia. Patient will be admitted for COPD exacerbation and influenza management. Stable for admission to hospitalist service. Impression & Plan Influenza A, Hypoxia, COPD exacerbation, Hypertensive urgency Discharge Plan Visit Data Chief Complaint: Flu Like Symptoms Stated Complaint: COUGH, HEADACHE, BODY ACHE, TROUBLE BREATHING ED Provider: Johann Ward Discharge Problem: Influenza A, Hypoxia, COPD exacerbation, Hypertensive urgency Patient Disposition: Admitted As Inpatient Condition: Good Discharge Instructions Interventions: ED Discharge Assessment Last Done: 10/03/25 18:00
[2025-10-03 11:58] LABS: Alanine Aminotransferase 15.0 U/L (7-52); Albumin Globulin Ratio 1.2 (0.9-2); Albumin Level 3.8 gm/dl (3.4-5.0); Alkaline Phosphatase 129.0 U/L (34-104); Anion Gap 6.0 (3-11); Bilirubin,Total 0.4 mg/dl (0.2-1.0); Blood Urea Nitrogen 14.0 mg/dl (6-23); Calcium 9.6 mg/dl (8.6-10.3); Carbon Dioxide 28.0 mmol/L (21-32); Chloride 106.0 mmol/L (98-107); Creatinine Clr Calc Pharmacy 67.8 ml/min; Globulin 3.2 gm/dl (2.5-4.0); Glucose 108.0 mg/dl (70-99(Fasting)); Potassium 3.9 mmol/L (3.5-5.1); Sodium 140.0 mmol/L (136-145); Total Protein 7.0 gm/dl (6.0-8.3)
[2025-10-03] MEDS: PROCHLORPERAZINE 10 MG in SYRINGE 8 ML IV ONE (12:03)
--- NOTE | 2025-10-03 12:12 | XRay Report ---
XR chest 1V portable CLINICAL HISTORY: Dyspnea COMPARISON STUDY: 06/20/2025 FINDINGS: Stable mild cardiomegaly without pulmonary vascular congestion. No consolidation or pleural effusion. No pneumothorax. IMPRESSION: No acute findings. ACT 112: Negative or not required by law. Electronically signed by: Basilio Cadet M.D. 10/03/2025 12:10 PM
[2025-10-03 12:17] LABS: Influenza A virus by PCR Positive (Neg); Influenza B virus by PCR Negative (Neg); SARS CoV2 RNA(COVID-19) Ceph NEGATIVE (Negative)
[2025-10-03] MEDS: ACETAMINOPHEN 1,000 MG/100 ML VIAL IV STA (12:40)
[2025-10-03] MEDS: OSELTAMIVIR PHOSPHATE 6 MG/ML SUSP PO STA (12:57)
--- NOTE | 2025-10-03 13:08 | CT Scan Report ---
EXAM: CT Head Without Intravenous Contrast INDICATION: Headache. Hypertension. TECHNIQUE: Axial computed tomography images of the head/brain without intravenous contrast. Sagittal and/or coronal reformats are provided. Sagittal and coronal reformatted images were created and reviewed. This CT exam was performed using one or more of the following dose reduction techniques: automated exposure control, adjustment of the mA and/or kV according to patient size, and/or use of iterative reconstruction technique. COMPARISON: 08/29/2005 FINDINGS: Limitations: None. Brain and extra-axial spaces: There is age appropriate cortical atrophy and chronic ischemic periventricular white matter hypodensity. No acute infarct, hemorrhage or mass noted. Bones/joints: No acute changes. Soft tissues: No acute abnormality noted. Vasculature: No acute abnormality noted. Sinuses: Stable moderate mucosal thickening left maxillary sinus. Mastoid air cells: No mastoid effusion. Orbits: No acute abnormality noted. IMPRESSION: Cerebral atrophy. No acute changes. ACT 112: N/A Electronically signed by Maria Antonia Jurado 10-03-2025 13:08 PM
[2025-10-03] MEDS ORDERED: NYSTATIN POWDER 15GM BTL EXT PRN (18:00)
[2025-10-03] MEDS ORDERED: AZELASTINE HCL 0.1% NASAL 200 SPRAYS/27,400 MCG BTL PRN (18:00)
[2025-10-03] MEDS ORDERED: MECLIZINE 12.5 MG TAB PO PRN (18:00)
[2025-10-03] MEDS ORDERED: ONDANSETRON INJ 2 MG/ML 2 ML VIAL IV PRN (18:00)
[2025-10-03] MEDS ORDERED: guaiFENesin 600 MG TABCR PO PRN (18:00)
[2025-10-03] MEDS ORDERED: ALBUTEROL HFA 8 GM INHALER INH PRN (18:00)
[2025-10-03] MEDS ORDERED: ALBUT/IPRATROP 3MG/0.5MG NEB 3 ML VIAL INH PRN (18:00)
[2025-10-03] MEDS ORDERED: CETIRIZINE HCL 10 MG TABLET PO PRN (18:00)
[2025-10-03] MEDS ORDERED: POLYETHYLENE (MIRALAX) 17 GM PACK PO PRN (18:00)
[2025-10-03] MEDS ORDERED: FUROSEMIDE 40 MG TAB PO SCH (18:00)
--- NOTE | 2025-10-03 19:32 | History & Physical Report ---
Date of Service October 03, 2025 Assessment & Plan (1) Influenza A: (2) Nausea & vomiting: (3) Shortness of breath: (4) History of TIA (transient ischemic attack): (5) COPD (chronic obstructive pulmonary disease): (6) Hypertension: (7) Dyslipidemia: (8) GERD (gastroesophageal reflux disease): Plan Patient with PMH of COPD presents into the hospital with flu-like symptoms. She was tested positive for influenza. Was given tamiflu and a Duoneb in the ED. Reports she feels better after the Duoneb but the shortness of breath is still there. Influenza A -Continue tamiflu -Encourage PO intake of fluids -Zofran IV for nausea -CBC w/diff and CMP in the AM COPD -Will use duoneb PRN to help with breathing. -Continue home medications Hx of TIA -Continue clopidogrel HTN -Continue losartan -Continue atenolol Hx of Hypomagnesia -Will order magnesium lab in the AM -Continue home magnesium for now. Constipation -Continue miralax -Continue lubiprostone HLD -continue atorvastatin GERD -continue pantoprazole Code Status: Full code though expressed that she will only be on the ventilator for 3 days. DVT Prophylaxis: Lovenox Admission and Anticipated Discharge Date Admission Date: October 03, 2025 History of Present Illness Chief Complaint: Flu-Like symptoms, SOB Primary Care Provider: Lala Baum MD Patient with Hx of COPD presents into the hospital with flu-like symptoms. She stated that 5 days ago she was having trouble breathing as well as a headache. States that last night is when she started to have a bad cough, and feeling achy. She has been coughing up mucus and today she vomited. She also notes the coughing can cause abdominal, back, and chest pain. States she uses oxygen when ambulating and at night. Denies fever, diarrhea/constipation, chest pressure, and ear pain. Allergies Allergy/AdvReac Type Severity Reaction Status Date / Time adhesive Allergy Intermediate RASH Verified 10/03/25 15:14 ibuprofen Allergy Intermediate RASH Verified 10/03/25 15:14 Iodinated Contrast Media Allergy Intermediate HIVES, Verified 10/03/25 15:14 EYES SWELL SHUT latex Allergy Intermediate Hives Verified 10/03/25 15:14 naproxen Allergy Intermediate SWELLING, Verified 10/03/25 15:14 RASH, HIVES ondansetron [From Zofran] AdvReac Mild Nausea Verified 10/03/25 15:15 Home Medications Medication Instructions Recorded Confirmed Type cholecalciferol (vitamin D3) 50 2,000 unit PO QAM 06/09/19 10/03/25 History mcg (2,000 unit) capsule (Vitamin D3) polyethylene glycol 3350 17 gram 17 g PO Q OTHER DAY PRN 02/20/23 10/03/25 History oral powder packet (Miralax) Constipation nystatin 100,000 unit/gram topical 1 applic topical TID PRN Other #60 02/27/24 10/03/25 Rx powder grams guaifenesin 600 mg tablet, 600 mg PO BID PRN congestion #60 04/01/24 10/03/25 Rx extended release 12 hr (Mucinex) tabs zinc gluconate 50 mg tablet 50 mg PO DAILY 04/25/24 10/03/25 History cyanocobalamin (vitamin B-12) 1,000 mcg PO DAILY #90 caps 06/22/24 10/03/25 Rx 1,000 mcg capsule losartan 100 mg tablet 100 mg PO QAM #90 tabs 10/19/24 10/03/25 Rx atenolol 25 mg tablet 25 mg PO QAM #90 tabs 02/03/25 10/03/25 Rx clopidogrel 75 mg tablet 75 mg PO QAM #90 tabs 03/04/25 10/03/25 Rx furosemide 40 mg tablet 40 mg PO PRN swelling or fluid 03/18/25 10/03/25 History accumulation meclizine 25 mg tablet 12.5 mg (1/2 x 25 mg) PO Q6 PRN 03/19/25 10/03/25 Rx vertigo/dizziness #20 tabs promethazine 25 mg tablet 25 mg PO Q6H PRN nausea and 03/31/25 10/03/25 Rx vomiting #14 tabs lubiprostone 24 mcg capsule 24 mcg PO BID #180 caps 04/16/25 10/03/25 Rx (Amitiza) potassium chloride 10 mEq 10 meq PO QAM #90 tabs 06/04/25 10/03/25 Rx tablet,extended release atorvastatin 40 mg tablet 40 mg PO Q OTHER DAY dyslipidemia 06/18/25 10/03/25 Rx #48 tabs cetirizine 10 mg tablet 10 mg PO DAILY PRN allergy 07/01/25 10/03/25 Rx symptoms #90 tabs albuterol sulfate 90 mcg/actuation 2 inh inhalation QID PRN Wheezing 07/22/25 10/03/25 Rx aerosol inhaler #8.5 grams budesonide 0.5 mg/2 mL suspension 0.5 mg (2 mL) inhalation BID #360 07/22/25 10/03/25 Rx for nebulization (Pulmicort) mL formoterol fumarate 20 mcg/2 mL 2 ml inhalation Q12H #120 mL 07/22/25 10/03/25 Rx solution for nebulization (Perforomist) ipratropium 0.5 mg-albuterol 3 mg 3 ml inhalation Q4H PRN 07/22/25 10/03/25 Rx (2.5 mg base)/3 mL nebulization cough,sob,wheezing #360 mL soln roflumilast 500 mcg tablet 500 mcg PO DAILY #30 tabs 07/22/25 10/03/25 Rx umeclidinium 62.5 mcg/actuation 1 inh inhalation QAM #30 ea 07/22/25 10/03/25 Rx blister powder for inhalation (Incruse Ellipta) azelastine 137 mcg (0.1 %) nasal 2 spray intranasal BID PRN nasal 07/28/25 10/03/25 Rx spray congestion #90 mL fluticasone propionate 50 2 spray intranasal DAILY #48 grams 07/28/25 10/03/25 Rx mcg/actuation nasal spray,suspension magnesium oxide 500 mg PO BID #180 tabs 08/02/25 10/03/25 Rx clotrimazole 10 mg mauricio 10 mg mucous membrane 5XD #140 tabs 08/28/25 10/03/25 Rx metoclopramide HCl 5 mg tablet 5 mg PO BID PRN nausea and 08/29/25 10/03/25 Rx (Reglan) vomiting #10 tabs pantoprazole 40 mg tablet,delayed 40 mg PO BID #180 tabs 09/14/25 10/03/25 Rx release Past Med/Surg History Problem List (Updated 10/05/25 @ 13:54 by Johann Ward MD) Hypertensive urgency (Acute) COPD exacerbation (Acute) Hypoxia (Acute) Influenza A (Acute) Conjunctivitis Recurrent pneumonia Chronic rhinitis Hydronephrosis of right kidney Right nephrolithiasis Vasomotor rhinitis Exertional shortness of breath Ex-smoker B12 deficiency Hypoxia (Acute) Vocal fold atrophy Celiac artery aneurysm Constipation Obstruction of left ureteropelvic junction (UPJ) due to stone Regurgitation of food Mixed stress and urge urinary incontinence Recent urinary tract infection Chronic respiratory failure with hypoxia (Acute) Vocal cord nodules Left thyroid nodule [place]'s syndrome Vertigo Anxiety and depression Sleep apnea O2 2L HS Allergic rhinitis Arthritis Obesity Fibromyalgia Chronic obstructive pulmonary disease nebulizer/inhalers daily and prn///2L n/c at HS/PRN Dyslipidemia Hypertension Medical History Elevated troponin Acute on chronic hypoxic respiratory failure Constipation Vocal cord nodules Obesity Fibromyalgia Vertigo Celiac artery aneurysm Hyperlipidemia HTN (hypertension) Anxiety and depression COPD (chronic obstructive pulmonary disease) History of kidney stones History of TIA (transient ischemic attack) (2019) History of intestinal obstruction History of diverticulitis On anticoagulant therapy On home oxygen therapy History of COVID-19 Dysconjugate gaze Hypomagnesemia Osteoarthritis Multiple pulmonary nodules Obstructive sleep apnea of adult Urge incontinence of urine GERD (gastroesophageal reflux disease) IBS (irritable bowel syndrome) Surgical History History of cystoscopy (~07/24/19) History of bunionectomy History of surgical removal of right nipple History of cataract surgery History of ureter stent History of right breast biopsy History of dilatation and curettage History of removal of cyst History of colonoscopy History of cholecystectomy Status post biopsy of thyroid gland History of tooth extraction H/O esophagogastroduodenoscopy History of bilateral breast reduction surgery History of tonsillectomy and adenoidectomy History of total hysterectomy Family History Brother Family history of diabetes mellitus Other No family history of adverse response to anesthesia Denies family history of Diabetes Crohn's disease Colorectal cancer Ulcerative colitis Stroke Social History Smoking Status: Former smoker Tobacco Type: Cigarettes Age Started Using Tobacco: 8; Age Quit Using Tobacco: 49; packs per day: 1.5; Second Hand Exposure: No; Do You Dip or Chew Tobacco: No; Hx Alcohol Use: No Hx Substance Use: No Preferred Language: Wolof Communication Ability: Effective Visual Impairment: No Limitations Procurement Professional Required: No Beliefs That Will Affect Care: None marital status: Current Living Situation: Spouse and Family Current Living Situation Comment: Patient lives with her . Her daughter and 1 grandson live there current occupational status: retired How many Children do You have: 3 Feels Safe at Home: Yes Diet: regular Dental Care, Regularly: No Physical Activity Frequency: Does not Exercise Seatbelt Use: sometimes Sunscreen Use: Yes Assistive Devices: BiPap, Cane, CPAP and Walker Review of Systems Review of Systems: as per HPI Physical Exam Constitutional: + ill appearing Eyes: + anicteric sclerae and EOM intact bilat erally ENMT: L. TM normal. Noticed some black coloration in the auditory canal at the 6'oclock position. R. TM looked sclerotic. Respiratory: Auscultation: + wheezes (throughout) Cardiovascular: Rate/Rhythm: regular rate and regular rhythm Heart Sounds: normal S1 and normal S2; no murmur Extremities: no edema R. leg looks a bit more swollen then the left leg, but no edema B/L Chest (Breasts): Additional Comments: Dorr some discomfort on palpation in the middle of the chest Gastrointestinal (Abdomen): Percussion/Palpation: abdomen soft; abdomen nontender Skin: no rashes, warm and dry Psychiatric: Eye Contact: good eye contact Speech: normal rate/rhythm/volume of speech Thought Process: goal directed thought process and linear/logical thought process Results & Data Results & Data Vital Signs (Past 12 Hours) Vital Signs Temp Pulse Pulse Resp BP BP Pulse Ox 10/03/25 19:27 37.4 C 96 H 22 184/100 H 94 10/03/25 19:17 10/03/25 16:30 68 18 138/80 96 10/03/25 13:13 79 16 145/80 H 97 10/03/25 13:12 77 26 H 97 10/03/25 13:12 145/80 H 10/03/25 13:12 145/80 H 10/03/25 13:00 84 24 95 10/03/25 13:00 177/99 H 10/03/25 12:40 186/100 H 10/03/25 12:39 84 30 H 95 10/03/25 12:36 89 33 H 94 10/03/25 11:30 82 23 96 10/03/25 11:30 228/118 H 10/03/25 11:30 97 10/03/25 11:30 36.9 C 85 21 228/118 H 98 10/03/25 11:24 108 H 10/03/25 11:21 97 H 26 H 10/03/25 11:04 37.0 C 79 20 195/84 H 95 Pulse Ox O2 Del Method O2 Del Method O2 Flow Rate O2 Flow Rate 10/03/25 19:27 Nasal Cannula 2 10/03/25 19:17 93 Nasal Cannula 2 10/03/25 16:30 10/03/25 13:13 Room Air 10/03/25 13:12 Nasal Cannula 2 10/03/25 13:12 10/03/25 13:12 10/03/25 13:00 10/03/25 13:00 10/03/25 12:40 10/03/25 12:39 10/03/25 12:36 10/03/25 11:30 10/03/25 11:30 10/03/25 11:30 Nasal Cannula 2 10/03/25 11:30 Nasal Cannula 2 10/03/25 11:24 10/03/25 11:21 10/03/25 11:04 Room Air Diagnostic Findings Chest X-Ray 10/03/25 11:27 XR chest 1V portable CLINICAL HISTORY: Dyspnea COMPARISON STUDY: 06/20/2025 FINDINGS: Stable mild cardiomegaly without pulmonary vascular congestion. No consolidation or pleural effusion. No pneumothorax. IMPRESSION: No acute findings. ACT 112: Negative or not required by law. Electronically signed by: Basilio Cadet M.D. 10/03/2025 12:[address] 10/03/25 11:52 EXAM: CT Head Without Intravenous Contrast INDICATION: Headache. Hypertension. TECHNIQUE: Axial computed tomography images of the head/brain without intravenous contrast. Sagittal and/or coronal reformats are provided. Sagittal and coronal reformatted images were created and reviewed. This CT exam was performed using one or more of the following dose reduction techniques: automated exposure control, adjustment of the mA and/or kV according to patient size, and/or use of iterative reconstruction technique. COMPARISON: 08/29/2005 FINDINGS: Limitations: None. Brain and extra-axial spaces: There is age appropriate cortical atrophy and chronic ischemic periventricular white matter hypodensity. No acute infarct, hemorrhage or mass noted. Bones/joints: No acute changes. Soft tissues: No acute abnormality noted. Vasculature: No acute abnormality noted. Sinuses: Stable moderate mucosal thickening left maxillary sinus. Mastoid air cells: No mastoid effusion. Orbits: No acute abnormality noted. IMPRESSION: Cerebral atrophy. No acute changes. ACT 112: N/A Electronically signed by Maria Antonia Jurado 10-03-2025 13:08 PM Supervising Physician Co-Signing Physician Notes During face to face encounter, I obtained a history and physical examination, discussed plan of care with patient and answered any questions. I discussed plan of care with Dr. Goodwin I reviewed above note and agree with it except for the following: Patient will be admitted for flu. Patient will be placed on tamiflu. Will continue supportive care and will monitor. Given weakness, need for oxygen, will admit patient. Resident Activity Tracking Resident Involvement: Resident Care Provided Care Provided: Adult Hospital Medicine (2) Nausea & vomiting Vomiting type: unspecified Qualified Code(s): R11.2 - Nausea with vomiting, unspecified
[2025-10-03] MEDS: CLOTRIMAZOLE 10 MG TROCHE BUCCAL SCH (20:00)
[2025-10-03] MEDS: FORMOTEROL 20 MCG/2 ML VIAL INH SCH (20:27)
[2025-10-03] MEDS: BUDESONIDE 0.5 MG/2 ML VIAL (PULMICORT) INH SCH (20:27)
[2025-10-03] MEDS: ACETAMINOPHEN 325 MG TAB PO PRN (20:56)
[2025-10-03] MEDS: OSELTAMIVIR PHOSPHATE 75 MG CAP PO SCH (20:57)
[2025-10-03] MEDS: MAGNESIUM OXIDE 400 MG TAB PO SCH (20:57)
[2025-10-03] MEDS: LUBIPROSTONE 8 MCG CAP PO SCH (20:59)
[2025-10-04 05:30] LABS: Hematocrit (blood only) 43.8 % (37.0-47.0); Hemoglobin 13.9 g/dL (12.0-16.0); Immature Granulocytes # (auto) 0.01 K/uL (0.01-0.20); Immature Granulocytes % (auto) 0.2 %; Mean Corpuscular Hemoglobin 30.4 pg (25.0-34.0); Mean Corpuscular Volume 95.8 fL (80.0-100.0); Platelet Count 180 K/uL (130-400); RDW Standard Deviation 47.2 fL (36.4-46.3); Red Blood Count 4.57 M/uL (4.20-5.40); White Blood Count 4.78 K/ul (4.8-10.8)
[2025-10-04 05:41] LABS: Alanine Aminotransferase 14.0 U/L (7-52); Albumin Globulin Ratio 1.2 (0.9-2); Albumin Level 3.7 gm/dl (3.4-5.0); Alkaline Phosphatase 123.0 U/L (34-104); Anion Gap 6.0 (3-11); Bilirubin,Total 0.3 mg/dl (0.2-1.0); Blood Urea Nitrogen 19.0 mg/dl (6-23); Calcium 9.7 mg/dl (8.6-10.3); Carbon Dioxide 31.0 mmol/L (21-32); Chloride 103.0 mmol/L (98-107); Creatinine Clr Calc Pharmacy 50.6 ml/min; Globulin 3.0 gm/dl (2.5-4.0); Glucose 119.0 mg/dl (70-99(Fasting)); Magnesium 2.4 mg/dl (1.7-2.4); Potassium 4.4 mmol/L (3.5-5.1); Sodium 140.0 mmol/L (136-145); Total Protein 6.7 gm/dl (6.0-8.3)
[2025-10-04] MEDS: ATENOLOL 25 MG TABLET PO SCH (08:57)
[2025-10-04] MEDS: ATORVASTATIN 40 MG TAB PO SCH (08:57)
[2025-10-04] MEDS: CLOPIDOGREL BISULFATE 75 MG TAB PO SCH (08:58)
[2025-10-04] MEDS: ENOXAPARIN INJ 40 MG/0.4 ML SYR SQ SCH (08:59)
[2025-10-04] MEDS: CYANOCOBALAMIN (B-12) 500 MCG TABLET PO SCH (08:59)
[2025-10-04] MEDS: FLUTICASONE PROPIONATE NA SPR 16 GM BTL SCH (08:59)
[2025-10-04] MEDS: LOSARTAN POTASSIUM 50 MG TAB PO SCH (09:00)
[2025-10-04] MEDS: UMECLIDINIUM BROMIDE 62.5MCG/BLISTER 7 PUFFS/INHALER INH SCH (09:02)
[2025-10-04] MEDS: POTASSIUM CHLORIDE 10 MEQ TABCR PO SCH (09:02)
[2025-10-04] MEDS: ROFLUMILAST 500 MCG TAB PO SCH (09:02)
--- NOTE | 2025-10-04 11:33 | Electrocardiogram Report ---
Test Reason : Blood Pressure : */* mmHG Vent. Rate : 85 BPM Atrial Rate : 85 BPM P-R Int : 180 ms QRS Dur : 88 ms QT Int : 358 ms P-R-T Axes : 56 -35 66 degrees QTcB Int : 426 ms Normal sinus rhythm Left axis deviation Left anterior fascicular block Abnormal ECG When compared with ECG of 29-Aug-2025 09:12, No significant change was found Confirmed by Magda Little (Boo) on 10/04/2025 11:33:18 AM Referred By: REFERRED SELF Confirmed By: Magda Little
[2025-10-04] MEDS: MELATONIN 3 MG TAB PO PRN (20:30)
[2025-10-04] MEDS: BENZONATATE 100 MG CAPSULE PO SCH (20:30)
--- NOTE | 2025-10-04 23:34 | Hospitalist Progress Note ---
Date of Service October 04, 2025 Assessment & Plan (1) Influenza A: (2) Nausea & vomiting: (3) Shortness of breath: (4) History of TIA (transient ischemic attack): (5) COPD (chronic obstructive pulmonary disease): (6) Hypertension: (7) Dyslipidemia: (8) GERD (gastroesophageal reflux disease): Plan Patient with PMH of COPD presents into the hospital with flu-like symptoms. She was tested positive for influenza. Was given tamiflu and a Duoneb in the ED. Reports she feels better after the Duoneb but the shortness of breath is still there. Influenza A -Continue tamiflu -Encourage PO intake of fluids -Zofran IV for nausea -Patient is slowly responding to above treatment, will continue supportive care. COPD -Will use duoneb PRN to help with breathing. -Continue home medications Hx of TIA -Continue clopidogrel HTN -Continue losartan -Continue atenolol Hx of Hypomagnesia -Will order magnesium lab in the AM -Continue home magnesium for now. Constipation -Continue miralax -Continue lubiprostone HLD -continue atorvastatin GERD -continue pantoprazole Code Status: Full code though expressed that she will only be on the ventilator for 3 days. DVT Prophylaxis: Lovenox Admission and Anticipated Discharge Date Admission Date: October 03, 2025 Subjective Patient reports feeling better, but still with a cough and generalized malaise. Physical Exam Constitutional: WD/WN, vitals as above Neck: trachea midline, no thyromegaly Respiratory: normal respiratory effort, lungs clear to auscultation (except for rhonchi in lower lung fileds.) Cardiovascular: RRR, no murmur, no edema Gastrointestinal (Abdomen): normal bowel sounds, soft, nontender, no hepatosplenomegaly Psychiatric: A+Ox3, euthymic affect Results & Data Results & Data Vital Signs (Past 12 Hours) Vital Signs Temp Pulse Pulse Resp BP BP Pulse Ox 10/04/25 21:24 36.6 C 65 20 180/83 H 95 10/04/25 20:30 10/04/25 20:01 74 18 94 10/04/25 16:21 10/04/25 15:40 36.4 C L 70 18 167/90 H 94 10/04/25 13:30 69 24 149/93 H 96 10/04/25 13:00 70 24 149/93 H 95 O2 Del Method O2 Flow Rate 10/04/25 21:24 Nasal Cannula 2 10/04/25 20:30 Nasal Cannula 2 10/04/25 20:01 Nasal Cannula 2 10/04/25 16:21 Nasal Cannula 2 10/04/25 15:40 Nasal Cannula 2 10/04/25 13:30 Nasal Cannula 2 10/04/25 13:00 Nasal Cannula 2 PG Care Time/CCT Total # of Minutes Spent Total Time Spent with Patient: Total time spent is greater than 50% in coordination of care (as documented) at patient's floor/unit and/or counseling patient: Coding Level of Care Code 91757 SUB INP/OBS CARE 2MIN Diagnoses Influenza A J10.1 Nausea & vomiting R11.2 Vomiting type: unspecified Shortness of breath R06.02 History of TIA (transient ischemic attack) Z86.73 COPD (chronic obstructive pulmonary disease) J44.9 Hypertension I10 Dyslipidemia E78.5 GERD (gastroesophageal reflux disease) K21.9 (2) Nausea & vomiting Vomiting type: unspecified Qualified Code(s): R11.2 - Nausea with vomiting, unspecified
[2025-10-05] MEDS: PROCHLORPERAZINE 5 MG in SYRINGE 4 ML IV ONE (01:05)
[2025-10-05 06:15] LABS: Hematocrit (blood only) 42.7 % (37.0-47.0); Hemoglobin 13.5 g/dL (12.0-16.0); Immature Granulocytes # (auto) 0.02 K/uL (0.01-0.20); Immature Granulocytes % (auto) 0.3 %; Mean Corpuscular Hemoglobin 30.3 pg (25.0-34.0); Mean Corpuscular Volume 95.7 fL (80.0-100.0); Platelet Count 164 K/uL (130-400); RDW Standard Deviation 48.7 fL (36.4-46.3); Red Blood Count 4.46 M/uL (4.20-5.40); White Blood Count 5.73 K/ul (4.8-10.8)
[2025-10-05 06:34] LABS: Alanine Aminotransferase 10.0 U/L (7-52); Albumin Globulin Ratio 1.3 (0.9-2); Albumin Level 3.7 gm/dl (3.4-5.0); Alkaline Phosphatase 105.0 U/L (34-104); Anion Gap 8.0 (3-11); Bilirubin,Total 0.4 mg/dl (0.2-1.0); Blood Urea Nitrogen 26.0 mg/dl (6-23); Calcium 9.7 mg/dl (8.6-10.3); Carbon Dioxide 28.0 mmol/L (21-32); Chloride 104.0 mmol/L (98-107); Creatinine Clr Calc Pharmacy 59.2 ml/min; Globulin 2.8 gm/dl (2.5-4.0); Glucose 109.0 mg/dl (70-99(Fasting)); Potassium 4.1 mmol/L (3.5-5.1); Sodium 140.0 mmol/L (136-145); Total Protein 6.5 gm/dl (6.0-8.3)
[2025-10-05 08:17] VITALS: RESP 18; O2SAT 94
[2025-10-05] MEDS: PROCHLORPERAZINE 5 MG in SYRINGE 4 ML IV PRN (12:26)
--- NOTE | 2025-10-05 13:56 | Billing Data ---
Date of Service October 03, 2025 Coding Level of Care Code 26456 INT INP/OBS CARE
[2025-10-05 14:59] VITALS: BP 159/92; PULSE 76; TEMP 98.2
--- NOTE | 2025-10-06 10:22 | Coding Query ---
To promote full compliance with coding requirements relating to patient care, provider participation is requested in all cases of stagecraft teacher uncertainty. Please assist us with the question(s) below: Coding Question(s): The diagnosis below was documented in the ER, then subsequently fell off all further documentation. Please indicate if it is still a possible diagnosis or ruled out. Physician's Response(s): COPD EXACERBATION ( ) Diagnosed ( ) Ruled out ( x ) Other (please specify) COPD in the setting of an acute Influenza infection MTDD
== END 2025-10-05 17:35 | disposition home or self-care (01) | DRG 194 ==
LOC: ED 11:01 → EDINP 17:16 → SUATTDRO 17:16 → 3E 18:00